=== PATIENT | male | born 1960 | race Caucasian/White ===

== ENCOUNTER 2022-12-19 09:24 | Outpatient (OUT) | payer OTHER, MEDICARE, SELFPAY ==
--- NOTE | 2022-12-19 09:32 | XR_ITS ---
The [address] [address] Patient Name: RG SIMEON MRN: [id number] date: 1960 Sex: M Assigned Patient Location: [facility] Current Patient Location: [facility] Accession/Order Number: [id number] Exam Date: 12/19/2022 09:32 Report Date: 12/19/2022 10:39 At the request of: JENI SAEED Procedure: XR foot RT min 3V PROCEDURE: XR ankle RT min 3V, XR foot RT min 3V COMPARISON: 08/31/2022 HISTORY: RIGHT ANKLE PAIN FINDINGS: BONES:Stable foot fusion with a strut extending from the base of the first metatarsal through the medial cuneiform, navicular into the talus. Subtalar fusion. Screw across the first tarsometatarsal joint extending into the intermediate cuneiform . Widening of the plantar arch. Moderate to severe diffuse degenerative changes SOFT TISSUES:Mild diffuse soft tissue swelling EFFUSION:None visible. OTHER: Negative. IMPRESSION: Stable fusion with no acute fracture or mechanical failure Electronically authenticated by: ABNDAR SAENZ Date: 12/19/2022 10:39
--- NOTE | 2022-12-19 09:42 | XR_ITS ---
The [address] [address] Patient Name: RG SIMEON MRN: [id number] date: 1960 Sex: M Assigned Patient Location: [facility] Current Patient Location: [facility] Accession/Order Number: [id number] Exam Date: 12/19/2022 09:42 Report Date: 12/19/2022 10:39 At the request of: JENI SAEED Procedure: XR ankle RT min 3V PROCEDURE: XR ankle RT min 3V, XR foot RT min 3V COMPARISON: 08/31/2022 HISTORY: RIGHT ANKLE PAIN FINDINGS: BONES:Stable foot fusion with a strut extending from the base of the first metatarsal through the medial cuneiform, navicular into the talus. Subtalar fusion. Screw across the first tarsometatarsal joint extending into the intermediate cuneiform . Widening of the plantar arch. Moderate to severe diffuse degenerative changes SOFT TISSUES:Mild diffuse soft tissue swelling EFFUSION:None visible. OTHER: Negative. IMPRESSION: Stable fusion with no acute fracture or mechanical failure Electronically authenticated by: BANDAR SAENZ Date: 12/19/2022 10:39
== END 2022-12-19 09:25 | disposition home or self-care (01) ==
LOC: RAD 09:24
PROVIDERS: Visit Provider Podiatrist Foot & Ankle Surgery
DX: M19.071 Primary osteoarthritis, right ankle and foot (principal)
CPT/HCPCS: 73610; 73630

== ENCOUNTER 2022-12-27 07:46 | Outpatient (OUT) | payer OTHER, MEDICARE, SELFPAY ==
--- NOTE | 2022-12-27 07:59 | CT_ITS ---
[address] [address] Patient Name: RG SIMEON MRN: [id number] date: 1960 Sex: M Assigned Patient Location: CT Current Patient Location: CT Accession/Order Number: [id number] Exam Date: 12/27/2022 08:06 Report Date: 12/27/2022 09:39 At the request of: JENI SAEED Procedure: CT ankle RT wo con EXAMINATION: CT ankle RT wo con HISTORY: Primary osteoarthritis M19.071, Pseudarthrosis M98.0 ; chronic right ankle pain COMPARISON: XR ankle and foot right 12/19/2022 TECHNIQUE: Multi-planar CT images were created without IV contrast. Dose reduction techniques were achieved by using automated exposure control and/or adjustment of mA and/or kV according to patient size and/or use of iterative reconstruction technique. FINDINGS: BONES: Prior knee replacement. Prior talocalcaneal fusion via 2 lag screws. Prior mechanical fusion of the medial midfoot extending from the first metatarsal to the talus. Small degenerative osteophytes along the articular margins of the tibial plafond, evidence of prior bone harvesting from the distal tibia. Numerous tiny bone fragments along the margins of the midfoot and lateral malleolus; likely sequela of prior surgery. SOFT TISSUES: Mild subcutaneous edema. EFFUSION: None visible. OTHER: Negative. IMPRESSION: 1. Stable surgical changes and mechanical fusion of the hindfoot and medial midfoot. No evidence of hardware failure or appreciable change in alignment. Electronically authenticated by: LAURY ZEPEDA Date: 12/27/2022 09:39
== END 2022-12-27 07:47 | disposition home or self-care (01) ==
PROVIDERS: Visit Provider Podiatrist Foot & Ankle Surgery
DX: M19.071 Primary osteoarthritis, right ankle and foot (principal); M96.0 Pseudarthrosis after fusion or arthrodesis
CPT/HCPCS: 73700

== ENCOUNTER 2023-02-15 08:10 | Outpatient (OUT) | payer MEDICARE, SELFPAY ==
--- NOTE | 2023-02-15 | XR_ITS ---
[address] [address] Patient Name: RG SIMEON MRN: [id number] date: 1960 Sex: M Assigned Patient Location: Current Patient Location: Accession/Order Number: [id number] Exam Date: 02/15/2023 09:00 Report Date: 02/18/2023 12:44 At the request of: JENI SAEED Procedure: XR foot JOMAR min 3V EXAMINATION: XR foot JOMAR min 3V HISTORY: BILATERAL FOOT PAIN COMPARISON: 12/19/2022 FINDINGS: RIGHT FINDINGS: BONES: No acute fracture or dislocation. Fusion of the medial foot with a prosthesis extending from the first metatarsal to the anterior talus. There is lucency surrounding the fusion hardware in the talus. Moderate degenerative changes of the midfoot and hindfoot. Moderate plantar enthesopathic spurring of the calcaneus. Subtalar fusion. SOFT TISSUES: Negative. No visible soft tissue swelling. OTHER: Negative. LEFT FINDINGS: BONES: No acute fracture or dislocation. Fusion of the first and second tarsometatarsal joints with plate and screws. No mechanical failure. Bulky enthesopathic spurring plantar calcaneus SOFT TISSUES: Negative. No visible soft tissue swelling. OTHER: Negative. XR/XR foot JOMAR min 3V IMPRESSION: RIGHT CONCLUSION: Degenerative and postsurgical changes with lucency surrounding the prosthesis in the anterior talus suggestive of loosening, stable LEFT CONCLUSION: Degenerative and postsurgical changes Electronically authenticated by: BANDAR SAENZ Date: 02/18/2023 12:44
== END 2023-02-15 08:11 | disposition home or self-care (01) ==
LOC: RAD 08:11
PROVIDERS: Visit Provider Podiatrist Foot & Ankle Surgery
DX: M79.672 Pain in left foot (principal); M79.671 Pain in right foot; M96.0 Pseudarthrosis after fusion or arthrodesis
CPT/HCPCS: 73630

== ENCOUNTER 2023-03-26 10:34 | Outpatient (OUT) | payer MEDICARE, SELFPAY ==
--- NOTE | 2023-03-26 | XR_ITS ---
The [address] [address] Patient Name: RG SIMEON MRN: [id number] date: 1960 Sex: M Assigned Patient Location: [facility] Current Patient Location: [facility] Accession/Order Number: [id number] Exam Date: 03/26/2023 09:40 Report Date: 03/26/2023 11:36 At the request of: JENI SAEED Procedure: XR foot JOMAR min 3V STUDY: XR foot JOMAR min 3V, [id number] HISTORY: BILATERALL FOOT PAIN COMPARISON: Foot radiographs 02/15/2023 FINDINGS: Right foot: Fusion hardware is intact and similar in alignment. Apparent lucency at the bone hardware interface surrounding the fusion screw traversing the first metatarsal through the talus, similar. Lucency at the bone hardware interface involving the transverse oriented screw at the base of the first metatarsal is slightly increased in conspicuity compared with 02/15/2023. Osseous fragmentation and severe degenerative changes at the talonavicular joint, similar. No new or worsening osseous abnormality demonstrated. Acute fracture, dislocation, or suspicious osseous lesion. Mild osteoarthritis at the calcaneal cuboid joint, fourth tarsometatarsal joint, and the first metatarsophalangeal joint.. Small plantar calcaneal spur and mild Achilles insertional enthesopathy. Left foot: Fusion hardware at the first tarsometatarsal joint is intact and similar alignment compared with 02/15/2023. No evidence of loosening or infection. Mild osteophytosis at the first metatarsophalangeal joint. Medium-sized plantar calcaneal spur and mild Achilles insertional enthesopathy. No acute fracture or dislocation. IMPRESSION: 1. Slight worsening at the bone hardware lucency involving the transverse oriented screw at the base of the right first metatarsal which could indicate loosening or infection. 2. No other potentially new or worsening osseous abnormality in either foot. Electronically authenticated by: MERCEDES ROWE Date: 03/26/2023 11:36
== END 2023-03-26 10:35 | disposition home or self-care (01) ==
LOC: RAD 10:34
PROVIDERS: Visit Provider Podiatrist Foot & Ankle Surgery
DX: M79.671 Pain in right foot (principal); M79.672 Pain in left foot
CPT/HCPCS: 73630

== ENCOUNTER 2023-04-02 09:00 | Outpatient (OUT) | payer MEDICARE, SELFPAY ==
--- NOTE | 2023-04-02 09:29 | US_ITS ---
The [address] [address] Patient Name: RG SIMEON MRN: [id number] date: 1960 Sex: M Assigned Patient Location: US Current Patient Location: US Accession/Order Number: [id number] Exam Date: 04/02/2023 09:34 Report Date: 04/02/2023 10:31 At the request of: ARELY LOGAN Procedure: US right upper quadrant EXAM: US right upper quadrant HISTORY: . Cholesterolosis Of Gallbladder K82.4 . COMPARISON: 01/05/2022 TECHNIQUE: Grayscale and color imaging was performed FINDINGS: The pancreas was obscured due to overlying bowel gas. Scanning of the liver demonstrates a liver to be normal in size. No masses are noted. Color-flow is noted in the portal and hepatic veins. Common bile duct measures 4 mm. Along the wall of the gallbladder there is a 7 mm echogenic focus without shadowing. Findings would be consistent with a gallbladder polyp. No gallbladder wall thickening was noted. Common bile duct is normal measuring 4 mm. Right kidney measures 10.6 x 5.1 x 5.2 cm. Color-flow is noted. No solid renal cortical masses or hydronephrosis is noted. No fluid is noted in the right upper quadrant. US/US right upper quadrant IMPRESSION: 1 7 mm gallbladder polyp. No gallstones. No gallbladder wall thickening. A similar finding was on the previous exam. 2. The pancreas was obscured due to overlying bowel gas. 3. The remainder the right upper quadrant was unremarkable. Electronically authenticated by: BANDAR QUEZADA Date: 04/02/2023 10:31
== END 2023-04-02 09:01 | disposition home or self-care (01) ==
LOC: US 09:03
PROVIDERS: Visit Provider Surgery
DX: K82.4 Cholesterolosis of gallbladder (principal)
CPT/HCPCS: 76705

== ENCOUNTER 2023-04-02 09:16 | Outpatient (OUT) | payer MEDICARE, SELFPAY ==
--- NOTE | 2023-04-02 09:33 | XR_ITS ---
The [address] [address] Patient Name: RG SIMEON MRN: [id number] date: 1960 Sex: M Assigned Patient Location: LAB Current Patient Location: US Accession/Order Number: [id number] Exam Date: 04/02/2023 10:10 Report Date: 04/02/2023 11:03 At the request of: SHUN PEREZ Procedure: XR abdomen 1V EXAM: XR abdomen 1V HISTORY: History Of Kidney Stones Z87.442 COMPARISON: None. TECHNIQUE: AP view of the abdomen. FINDINGS: Nonobstructive bowel gas pattern is noted. There is no suspicious calcification. Posterior lumbar fusion hardwares. XR/XR abdomen 1V IMPRESSION: Nonobstructive bowel gas pattern. No suspicious renal calcification. Electronically authenticated by: ANTWAN ECHEVARRIA Date: 04/02/2023 11:03
[2023-04-02 11:46] LABS: Carbon Dioxide 31.5 mmol/L (21.0-32.0); Chloride 104 mmol/L (98-107); Estimated GFR (African America >60 (>=60); Estimated GFR (Non-African Ame >60 (>=60); Phosphorus 2.5 mg/dL (2.6-4.7); Sodium 142 mmol/L (136-145); Uric Acid 5.2 mg/dL (3.5-7.2)
[2023-04-03 12:09] LABS: PTH, Intact 38 pg/mL (15-65)
== END 2023-04-02 09:17 | disposition home or self-care (01) ==
PROVIDERS: PCP Family Medicine; Visit Provider Urology
DX: N20.0 Calculus of kidney (principal); Z87.442 Personal history of urinary calculi
CPT/HCPCS: 36415; 74018; 82310; 82374; 82435; 82565; 83970; 84100; 84295; 84520; 84550

== ENCOUNTER 2023-05-31 07:50 | Outpatient (OUT) | payer MEDICARE, SELFPAY ==
--- NOTE | 2023-05-31 | XR_ITS ---
The [address] [address] Patient Name: RG SIMEON MRN: [id number] date: 1960 Sex: M Assigned Patient Location: LAB Current Patient Location: LAB Accession/Order Number: [id number] Exam Date: 05/31/2023 08:24 Report Date: 05/31/2023 09:32 At the request of: AUDREY MORRIS Procedure: XR knee LT 3V PROCEDURE: XR knee LT 3V COMPARISON: None. HISTORY: Osteoarthritis FINDINGS: BONES:No acute fracture or dislocation. Moderate tricompartmental osteoarthropathy most significant in the medial compartment. SOFT TISSUES:Negative. No visible soft tissue swelling. EFFUSION:Mild joint effusion. OTHER: Negative. XR/XR knee LT 3V IMPRESSION: Moderate osteoarthritis Electronically authenticated by: BANDAR SAENZ Date: 05/31/2023 09:32
[2023-05-31 08:30] LABS: Estimated Average Glucose 103 mg/dL; Glycohemoglobin A1C 5.2 % (4.5-6.2)
[2023-05-31 08:35] LABS: Basophils Percent Auto 0.8 % (0.2-2.0); Eosinophils Absolute Auto 0.1 10^3/uL (0.0-0.7); Eosinophils Percent Auto 1.9 % (0.9-7.0); Hematocrit 43.2 % (42.0-54.0); Hemoglobin 14.4 g/dL (14.0-18.0); Immature Granulocytes Abs Auto 0.01 10^3/uL (0.00-0.03); Immature Granulocytes Pct Auto 0.2 % (0.0-0.5); Lymphocytes Absolute Auto 1.1 10^3/uL (1.2-3.8); Lymphocytes Percent Auto 21.3 % (20.5-60.0); Mean Corpuscular HGB Conc 33.3 g/dL (29.9-35.2); Mean Corpuscular Hemoglobin 31.6 pg (25.9-34.0); Mean Corpuscular Volume 94.7 fL (80.0-94.0); Mean Platelet Volume 10.4 fL (9.5-13.5); Monocytes Absolute Auto 0.6 10^3/uL (0.3-0.8); Monocytes Percent Auto 11.8 % (1.7-12.0); Neutrophils Absolute Auto 3.3 10^3/uL (1.4-6.5); Platelet Count 219 10^3/uL (150-450); Red Blood Count 4.56 10^6/uL (4.70-6.10); Red Cell Distribution Width 13.1 % (11.0-15.0); White Blood Count 5.2 10^3/uL (4.0-11.0)
[2023-05-31 09:05] LABS: Prostate Specific Antigen Scrn 4.48 ng/mL (<=4.00)
[2023-05-31 09:53] LABS: Alanine Aminotransferase 54 U/L (16-63); Albumin Globulin Ratio 1.1; Albumin Level 3.8 g/dL (3.4-5.0); Alkaline Phosphatase 102 U/L (46-116); Anion Gap 11.7; Aspartate Amino Transferase 41 U/L (15-37); Bilirubin Total 0.6 mg/dL (0.2-1.0); Calcium 8.4 mg/dL (8.5-10.1); Carbon Dioxide 29.3 mmol/L (21.0-32.0); Chloride 104 mmol/L (98-107); Chol HDL Ratio 2.8; Cholesterol 144 mg/dL (<=200); Estimated GFR (African America >60 (>=60); Estimated GFR (Non-African Ame >60 (>=60); Free T3 2.97 pg/mL (2.18-3.98); Globulin 3.6 g/dL; Glucose 113 mg/dL (74-106); HDL Cholesterol 52 mg/dL (40-60); LDL Cholesterol Calculated 77.2 mg/dL; Sodium 141 mmol/L (136-145); Thyroid Stimulating Hormone 1.992 uIU/mL (0.358-3.740); Total Protein 7.4 g/dL (6.4-8.2); Triglycerides 74 mg/dL (<=150); VLDL CHOLESTEROL 14.8 mg/dL
[2023-05-31 20:43] LABS: Occult Blood Negative
[2023-06-01 04:07] LABS: Testosterone 670 ng/dL (264-916)
== END 2023-05-31 07:51 | disposition home or self-care (01) ==
LOC: LAB 07:50
PROVIDERS: PCP Family Medicine; Visit Provider Family Medicine
DX: Z00.00 Encounter for general adult medical examination without abnormal findings (principal); E78.5 Hyperlipidemia, unspecified; R73.09 Other abnormal glucose; Z12.5 Encounter for screening for malignant neoplasm of prostate; Z12.12 Encounter for screening for malignant neoplasm of rectum; M17.9 Osteoarthritis of knee, unspecified
CPT/HCPCS: 36415; 73562; 80053; 80061; 83036; 84403; 84436; 84443; 84481; 85025; G0103; G0328

== ENCOUNTER 2023-06-03 10:18 | Outpatient (OUT) | payer MEDICARE, SELFPAY ==
[2023-06-04 09:11] LABS: PSA, Free 0.61 ng/mL; Prostate Specific Ag 2.9 ng/mL (0.0-4.0)
== END 2023-06-03 10:19 | disposition home or self-care (01) ==
LOC: LAB 10:19
PROVIDERS: PCP Family Medicine; Visit Provider Family Medicine
DX: R97.20 Elevated prostate specific antigen [PSA] (principal)
CPT/HCPCS: 36415; 84153; 84154

== ENCOUNTER 2023-07-03 08:44 | Outpatient (OUT) | payer MEDICARE, SELFPAY ==
--- NOTE | 2023-07-03 | XR_ITS ---
The [address] [address] Patient Name: RG SIMEON MRN: [id number] date: 1960 Sex: M Assigned Patient Location: [facility] Current Patient Location: [facility] Accession/Order Number: [id number] Exam Date: 07/03/2023 08:50 Report Date: 07/03/2023 09:49 At the request of: JENI SAEED Procedure: XR foot RT min 3V EXAM: XR foot RT min 3V HISTORY: RIGHT FOOT PAIN COMPARISON: 12/19/2022 TECHNIQUE: Three views of the right foot. FINDINGS: No acute fracture or dislocation. Postoperative changes are again noted of a tarsometatarsal fusion extending from the first metatarsal through the talus. There is bony spurring, irregularity and resorption across the tarsonavicular articulation. Lucency is noted about the tip of the fusion screw positioned within the talus. Two subtalar fusion screws are also present in good alignment. A plantar calcaneal spur is noted. No soft tissue abnormality. XR/XR foot RT min 3V IMPRESSION: 1. Postoperative changes of a tarsometatarsal and subtalar fusion again noted. 2. Increasing irregularity across the talonavicular fusion site with bony resorption and prominent spurring is noted, as well as some lucency surrounding the main medial column screw (at the talus), which may be due to loosening. Electronically authenticated by: MATTHEW MARSH Date: 07/03/2023 09:49
--- OUTSIDE RECORDS SUMMARY | 2023-07-03 08:50 | XMS_ITS | CCD ---
Author Name Unknown Address [address] [place] [address] [place] [address] Organization [facility] Care Team Providers Care Household Worker Name Role Phone None, No PCP Unavailable Unavailable Unavailable Unavailable Audrey Armstrong Unavailable Audrey Armstrong Unavailable Sal Richardson Unavailable Kenton Lawson Randy Unavailable UnavailAudrey Horan Primary Care Physician MD Audrey Armstrong Primary Care Provider [phone] MD Shun Machado Attending Provider DEBRA, Dr. SAL COLEMAN Attending Unavail able Renny, Mr. Suarez Attending Unavailabl e Audrey Armstrong Primary Care Unavailable Audrey Armstrong Primary Care Unavailable Renny, Mr. Suarez Attending Unavailabl e Audrey Armstrong Primary Care Unavailable Renny, Mr. Suarez Attending Unavailabl e Self, Referral Referring Unavailable HoAudrey nguyen Arely Primary Care Unavailable Dr. SAL RICHARDSON Attending Unavail able Shevcmartin, Mr. Suarez Attending Unavailabl e AnthonyyAudrey Arely Primary Care Unavailable Shevckaylak, Mr. Suarez Referring Unavailabl e Abivchik, Mr. Suarez Referring Unavailabl e Audrey Armstrong Primary Care Unavailable Shevikram, Mr. Suarez Attending Unavailabl e Shevchik, Mr. Suarez Referring Unavailabl e Shevchik, Mr. Suarez Attending Unavailabl e Audrey Armstrong Primary Care Unavailable HoyAudrey Arely Primary Care Unavailable UNKNOWN, UNKNOWN Referring Unavailable DEBRA, Dr. SAL COLEMAN Attending Unavail able Audrey Armstrong Primary Care Unavailable DEBRA, Dr. SAL COLEMAN Attending Unavail able DEBRA, Dr. SAL COLEMAN Referring Unavail able DEBRA, Dr. SAL COLEMAN Admitting Unavail able DEBRA, Dr. SAL COLEMAN Attending Unavail able Audrey Armstrong Primary Care Unavailable HoAudrey nguyen Primary Care Unavailable DEBRA, Dr. SAL COLEMAN Attending Unavail able DEBRA, Dr. SAL COLEMAN Referring Unavail able DEBRA, Dr. SAL COLEMAN Admitting Unavail able DEBRA, Dr. SAL COLEMAN Attending Unavail able Audrey Armsrtong Primary Care Unavailable DEBRA, Dr. SAL COLEMAN Attending Unavail able MD Audrey Armstrong Primary Care Provider [phone] MD Dmitriy De Leon Attending Provider MD Audrey Armstrong Primary Care Provider [phone] MD Dmitriy De Leon Attending Provider [phone] EDISONANDER, PETER D Admitting Unavailable ZIEBER, DR LAURY Costello Consulting Unavailable HOY ., DR VENTURA Primary Care Unavailable HIGHLANDER, PETER D Attending Unavailable HIGHLANDER, PETER D Consulting Unavailable HOY ., DR VENTURA Primary Care Unavailable HIGHLANDER, PETER D Consulting Unavailable HIGHLANDER, PETER D Admitting Unavailable HIGHLANDER, PETER D Attending Unavailable NILL ., DR MCGEE Admitting Unavailable NILL ., DR MCGEE Attending Unavailable ZIEBER, DR LAURY Costello Consulting Unavailable HOY ., DR VENTURA Primary Care Unavailable NILL ., DR MCGEE Consulting Unavailable HOY ., DR VENTURA Primary Care Unavailable HIGHLANDER, PETER D Admitting Unavailable HIGHLANDER, PETER D Attending Unavailable ZIEBER, DR LAURY Costello Consulting Unavailable HIGHLANDER, PETER Trena Consulting Unavailable HOY ., DR VENTURA Admitting Unavailable HOY ., DR VENTURA Primary Care Unavailable HOY ., DR VENTURA Attending Unavailable HOY ., DR VENTURA Consulting Unavailable ZIEBER, DR LAURY Costello Consulting Unavailable HAY ., DR VILLAFANA Admitting Unavailable HAY ., DR VILLAFANA Attending Unavailable HOY ., DR VENTURA Primary Care Unavailable HAY ., DR VILLAFANA Consulting Unavailable HOY ., DR VENTURA Primary Care Unavailable ELIZABETH ., DR ARTHUR Nur Admitting Unavailable ELIZABETH ., DR ARTHUR Nur Attending Unavailable HOY ., DR VENTURA Consulting Unavailable ELIZABETH ., DR ARTHUR Nur Consulting Unavailable WEST, DR BANDAR Sheppard Consulting Unavailable HIGHLANDER, JENI Albrecht Consulting Unavailable CHARLES NUNO Consulting Unavailable ROCIO ., RADHA HANCOCK Consulting Unavailable GEMBUS, LAKIA Consulting Unavailable SEAMBEATRICE, CINDY Tejeda Consulting Unavailable OMAR, WADE Attending Unavailable OMAR, WADE Admitting Unavailable OMAR, WADE Consulting Unavailable HOY ., DR VENTURA Primary Care Unavailable HIGHLANDER, PETER D Admitting Unavailable HIGHLANDER, PETER D Attending Unavailable HIGHLANDER, PETER D Admitting Unavailable HIGHLANDER, PETER D Attending Unavailable HOY ., DR VENTURA Primary Care Unavailable HOY ., DR VENTURA Referring Unavailable COOK, DR SHUN Mirza Admitting Unavailable COOK, DR SHUN Mirza Attending Unavailable HOY ., DR VENTURA Primary Care Unavailable COOK, DR SHUN Mirza Consulting Unavailable WEST, DR BANDAR Sheppard Consulting Unavailable COOK, DR SHUN Mirza Consulting Unavailable COOK, DR SHUN Mirza Admitting Unavailable COOK, DR SHUN Mirza Attending Unavailable HOY ., DR VENTURA Primary Care Unavailable SARASOTA, DR BANDAR Sheppard Consulting Unavailable HOY ., DR VENTURA Admitting Unavailable HOY ., DR VENTURA Attending Unavailable HOY ., DR VENTURA Consulting Unavailable HOY ., DR VENTURA Primary Care Unavailable HOY ., DR VENTURA Primary Care Unavailable HOY ., DR VENTURA Admjameson Unavailable HOY ., DR VENTURA Attending Unavailable HOY ., DR VENTURA Consulting Unavailable BANDAR QUEZADA Consulting Unavailable HOY ., DR VENTURA Attending Unavailable HOY ., DR VENTURA Consulting Unavailable HOY ., DR VENTURA Primary Care Unavailable HOY ., DR VENTURA Admjameson Unavailable LAURY SNYDER Consulting Unavailable HOY ., DR VENTURA Admjameson Unavailable HOY ., DR VENTURA Attending Unavailable HOY ., DR VENTURA Consulting Unavailable HOY ., DR VENTURA Primary Care Unavailable ZIEBER, DR LAURY Costello Consulting Unavailable OMAR, WADE Attending Unavailable ZIEBER, DR LAURY Costello Consulting Unavailable OMAR, WADE Admitting Unavailable HOY ., DR VENTURA Primary Care Unavailable OMAR, WADE Consulting Unavailable HIGHLANDER, JENI D Consulting Unavailable HIGHLANDER, PETER D Admitting Unavailable HIGHLANDER, JENI D Attending Unavailable HOY ., DR VENTURA Primary Care Unavailable WADE NELSON Attending Unavailable DR LAURY ZEPEDA Consulting Unavailable WADE NELSON Admitting Unavailable DR AUDREY BENOIT Primary Care Unavailable WADE NELSON Consulting Unavailable MD Audrey Armstrong Primary Care Provider [phone] MD Hudson De Leon Attending Provider [phone] Audrey Armstrong Primary Care Unavailable Hudson De Leon Attending Unavailable Hudson De Leon Admitting Unavailable Audrey Armstrong Primary Care Unavailable Haley, Hudson Attending Unavailable Haley, Hudson Admitting Unavailable Audrey Armstrong Primary Care Unavailable Hudson De Leon Attending Unavailable Hudson De Leon Admitting Unavailable ANTWAN SORIANO Attending Unavailable AUDREY ARMSTRONG Primary Care Unavailable Shun MACHADO Attending Unavailable Shun MACHADO Attending Unavailable Shun MACHADO Attending Unavailable Arely LOGAN Attending Unavailable Allergies Allergy Classification Reported Allergen(s) Allergy Type Date of Onset Reaction(s) Facility (17 sources) Penicillins; Translations: [Penicillins] Allergy to drug (finding) 7 [facility] Work Phone: (6 sources) Penicillin; Translations: [penicillin] Drug Allergy Eruption of skin (disorder) General Surgery [place] (2 sources) oxyCODONE Drug Allergy 1 [facility] (2 sources) Penicillins Drug allergy (disorder) 7 [facility] (1 source) Penicillins Drug allergy (disorder) 2 [facility] Medications Current Medications Medication Drug Class(es) Dates Sig (Normalized) Sig (Original) acetaminophen 325 mg / oxyCODONE hydrochloride 5 mg oral tablet (2 sources) Opioid Agonist Start: 01-19-2022 take 1 tablet by mouth twice daily Percocet 5 mg-325 mg oral tablet 1 tab(s), Oral, BID, Refill(s) 0 Start Date: 01/19/22 Status: Ordered Celebrex (2 sources) Nonsteroidal Anti-inflammatory Drug Start: 10-16-2022 Celebrex Oral Start Date: 10/16/22 Status: Ordered ciprofloxacin 500 mg oral tablet (12 sources) Quinolone Antimicrobial Start: 02-15-2022 take 1 tablet by mouth every two hours Ciprofloxacin Hcl (Cipro) 500 mg tablet Active 500 MG PO Q12H February 15, 2022 12:00am administer dose at least 2 hrs before/6 hrs after dairy products, calcium, zinc, and/or iron-containing products Start: 02-15-2022 take 1 tablet by lianna th every two hours Ciprofloxacin Hcl (Cipro) 500 mg tablet Active 500 MG PO Q12H February 15, 2022 12:00am administer dose at least 2 hrs before/6 hrs after dairy products, calcium, zinc, and/or iron-containing products Start: 01-19-2022 End: 02-15-2022 take 1 tablet by mouth every two hours Ciprofloxacin Hcl (Cipro) 500 mg tablet Discontinued 500 MG PO Q12H January 19, 2022 12:00am February 15, 2022 7:49am administer dose at least 2 hrs before/6 hrs after dairy products, calcium, zinc, and/or iron-containing products hydroxychloroquine sulfate 200 mg oral tablet (11 sources) Antimalarial, Antirheumatic Agent Start: 04-15-2019 End: 02-15-2022 take 1 tablet by mouth twice daily hydroxychloroquine 200 mg Tab 200 mg = 1 tab(s), Oral, BID Start Date: 04/15/19 Status: Ordered irbesartan 300 mg oral tablet (9 sources) Angiotensin 2 Receptor Jennifer Start: 01-16-2022 take 300 mg by mouth once daily at lunch Irbesartan Active 300 MG PO Daily with lunch January 17, 2022 12:00am NIFEdipine 30 mg oral tablet (11 sources) Dihydropyridine Calcium Channel Jennifer Start: 01-19-2022 take 1 tablet by mouth once daily NIFEdipine 30 mg ER Tab 30 mg = 1 tab(s), Oral, Daily, Refills(s) 0 Start Date: 01/19/22 Status: Ordered Start: 01-17-2022 take 30 mg by mouth once daily in the morning Nifedipine Active 30 MG PO Every morning January 17, 2022 12:00am pantoprazole 40 mg delayed release oral tablet (11 sources) Proton Pump Inhibitor Start: 04-15-2019 take 1 tablet by mouth once daily Protonix 40 mg Tab-DR 40 mg = 1 tab(s), Oral, Daily Start Date: 04/15/19 Status: Ordered potassium citrate 10 meq extended release oral tablet (2 sources) Start: 10-16-2022 End: 10-11-2023 potassium CITRATE 10 mEq ER Tab 20 mEq, 2 tab(s), Oral, BID for 30 day(s), 120 tab(s), Refill(s) 11, [facility] [address], 170, cm, 10/16/22 14:31:00 EDT, Height/Length Dosing, 104.3, kg, 10/16/22 14:31:00 EDT, Weight Dosing Start Date: 10/16/22 Stop Date: 10/11/23 Status: Ordered tiZANidine 4 mg oral tablet (14 sources) Central alpha-2 Adrenergic Agonist Start: 01-19-2022 take 2 tablets by mouth at bedtime tiZANidine 4 mg Tab 8 mg = 2 tab(s), Oral, Bedtime, Refills(s) 0 Start Date: 01/19/22 Status: Ordered Start: 08-03-2021 take 1 tablet by lianna th every six hours as needed for muscle spasms tiZANidine HCl - 4 MG Oral Tablet TAKE 1 TABLET EVERY 6 HOURS NEEDED FOR SPASM. Quantity: 92 Refills: 2 Ordered: 03-Aug-2021 Sal Richardson MD Start : 03-Aug-2021 Active Completed/Discontinued Medications Medication Drug Class(es) Dates Sig (Normalized) Sig (Original) acetaminophen 325 mg / HYDROcodone bitartrate 5 mg oral tablet (6 sources) Opioid Agonist Start: 01-19-2022 End: 02-15-2022 take 1 tablet by mouth every four to six hours Hydrocodone-Acetami nophen Discontinued 1 TAB PO EVERY 4-6 HOURS 10 3 January 19, 2022 February 15, 2022 7:49am chlorhexidine gluconate 40 mg/ml medicated liquid soap (17 sources) Start: 09-19-2021 Hibiclens 4 % External Liquid USE DIRECTED. Quantity: 1 Refills: 0 Ordered: 19-Sep-2021 Jacquie Alves Start : 19-Sep-2021 Active Start: 06-02-2021 Hibiclens 4 % External Liquid USE DIRECTED as preop shower Quantity: 1 Refills: 0 Ordered: 02-Jun-2021 Diane Ayalaa Start : 02-Jun-2021 Active diclofenac sodium 0.01 mg/mg topical gel (2 sources) Nonsteroidal Anti-inflammatory Drug Start: 05-02-2022 Diclofenac Sodium 1 % External Gel APPLY SPARINGLY TO AFFECTED AREA(S) ONCE DAILY Quantity: 1 Refills: 2 Ordered: 02-May-2022 Kenton Lawson PA-C Start : 02-May-2022 Active gabapentin 300 mg oral capsule (15 sources) Anti-epileptic Agent Start: 03-16-2021 take 1 tablet by mouth once Gabapentin 300 MG Oral Capsule Take 1 Tab by mouth daily per titration schedule, scheduled faxed to pharmacy Quantity: 180 Refills: 0 Ordered: 16-Mar-2021 Nazario Holloway MD Start : 16-Mar-2021 Active ketorolac tromethamine 10 mg oral tablet (6 sources) Nonsteroidal Anti-inflammatory Drug, Cyclooxygenase Inhibitor Start: 01-17-2022 End: 02-15-2022 take 1 tablet by mouth three times daily Ketorolac (Toradol) 10 mg Tablet Discontinued 10 MG PO Three times daily January 17, 2022 12:00am February 15, 2022 7:49am lidocaine 0.04 mg/mg medicated patch (9 sources) Antiarrhythmic, Amide Local Anesthetic Start: 08-03-2021 apply 1 dose transdermal route once daily Lidocaine 4 % External Patch APPLY 1 PATCH Daily Quantity: 30 Refills: 4 Ordered: 03-Aug-2021 Sal Richardson MD Start : 03-Aug-2021 Active mupirocin 0.02 mg/mg topical ointment (17 sources) RNA Synthetase Inhibitor Antibacterial Start: 09-19-2021 Mupirocin 2 % External Ointment APPLY SPARINGLY TO AFFECTED AREA(S) TWICE DAILY Quantity: 1 Refills: 0 Ordered: 19-Sep-2021 Jacquie Alves Start : 19-Sep-2021 Active Start: 06-02-2021 Mupirocin 2 % External Ointment Use intranasally twice daily 5 days prior to surgery. Quantity: 1 Refills: 0 Ordered: 02-Jun-2021 Azucena Ayala Start : 02-Jun-2021 Active oxybutynin chloride 5 mg oral tablet (6 sources) Cholinergic Muscarinic Antagonist Start: 01-19-2022 End: 02-15-2022 take 5 mg by mouth twice daily Oxybutynin Chloride Discontinued 5 MG PO Twice daily 60 January 19, 2022 12:00am February 15, 2022 7:49am tadalafil 10 mg oral tablet (2 sources) Phosphodiesterase 5 Inhibitor Start: 10-16-2022 tadalafil 10 mg Tab 10 mg = 1 tab(s), Oral, As Directed, PRN for erectile dysfunction, Take 1 tab by mouth one to two hours prior to sexual activity., # 30 tab(s), Refills(s) 3, Pharmacy: [email or web address] [id number], 170, cm, 10/16/22 14:31:00 EDT, Height/Length Dosing, 104.3, kg, 10/16/22 14:31:00 EDT, Weight Dosing Start Date: 10/16/22 Status: Ordered tamsulosin hydrochloride 0.4 mg oral capsule (6 sources) alpha-Adrenergic Jennifer Start: 01-17-2022 End: 02-15-2022 take 0.4 mg by mouth once daily in the morning Tamsulosin Discontinued 0.4 MG PO Every morning January 17, 2022 12:00am February 15, 2022 7:50am triamcinolone acetonide 1 mg/ml topical cream (2 sources) Corticosteroid Start: 01-19-2022 triamcinolone Top 0.1% Crm 1 amber, Topical, BID, Refill(s) 0 Start Date: 01/19/22 Status: Ordered NEGATED: Highlighted row has not occurred!No Current Medications (1 source) No Current Medications Problems Active Problems Problem Classification Problem Date Documented Da te Episodic/Chronic Abdominal pain (20 sources) Right upper quadrant pain; Translations: [Right upper quadrant pain] Onset: 12-09-2021 Episodic Allergic reactions (6 sources) Eczema; Translations: [Allergy status to penicillin] Onset: 09-27-2021 01-19-2022 Episodic Biliary tract disease (5 sources) Cholesterolosis of gallbladder; Translations: [Cholecystitis, unspecified] Onset: 01-08-2022 Episodic Calculus of urinary tract (20 sources) Kidney stone; Translations: [Calculus of kidney] Onset: 06-02-2021 Resolved: 04-15-2019 04-15-2019 Episodic Complications of surgical procedures or medical care (1 source) Other intraoperative and postprocedural complications and disorders of the musculoskeletal system; Translations: [OTH IO POSTPROC COMP D/O MSK SYS] Onset: 09-03-2022 Episodic Diverticulosis and diverticulitis (10 sources) Diverticular disease; Translations: [Diverticulitis] Resolved: 04-15-2019 04-15-2019 Chronic Esophageal disorders (2 sources) Gastro-esophageal reflux disease without esophagitis; Translations: [Gastro-esophageal reflux disease without esophagitis] Onset: 09-27-2021 Chronic Essential hypertension (7 sources) Hypertensive disorder; Translations: [Essential (primary) hypertension] Onset: 09-27-2021 04-15-2019 Chronic Genitourinary symptoms and ill-defined conditions (2 sources) Abnormal urinary product; Translations: [Hypocitraturia] Onset: 10-16-2022 Episodic Headache; including migraine (5 sources) Migraine 01-19-2022 Chronic Hyperplasia of prostate (8 sources) Benign prostatic hyperplasia; Translations: [Benign prostatic hypertrophy without outflow obstruction] Onset: 01-30-2022 04-15-2019 Chronic Melanomas of skin (10 sources) Malignant melanoma of back; Translations: [Malignant melanoma of skin] Resolved: 05-15-2019 05-16-2019 Chronic Nausea and vomiting (7 sources) Nausea; Translations: [Nausea] Onset: 01-11-2022 Episodic Neoplasms of unspecified nature or uncertain behavior (5 sources) Neoplasm of uncertain behavior of skin 04-15-2019 Episodic Osteoarthritis (10 sources) Osteoarthritis; Translations: [Primary osteoarthritis, right ankle and foot] Onset: 08-16-2022 04-15-2019 Chronic Other acquired deformities (1 source) Contracture, right ankle; Translations: [CONTRACTURE RIGHT ANKLE] Onset: 06-21-2022 Chronic Other acquired deformities (17 sources) Lumbar spondylolisthesis; Translations: [Acquired spondylolisthesis] Onset: 09-19-2021 Episodic Other acquired deformities (2 sources) Spondylolisthesis, lumbar region; Translations: [Spondylolisthesis, lumbar region] Onset: 09-19-2021 Episodic Other circulatory disease (5 sources) Raynaud's disease 01-19-2022 Chronic Other circulatory disease (1 source) Raynaud's syndrome without gangrene; Translations: [Raynaud's syndrome without gangrene] Onset: 06-21-2021 Chronic Other congenital anomalies (1 source) Other congenital valgus deformities of feet; Translations: [OTH CONGEN VALGUS DEFORMITIES FEET] Onset: 02-16-2022 Chronic Other connective tissue disease (1 source) Presence of right artificial knee joint; Translations: [Presence of right artificial knee joint] Onset: 09-27-2021 Chronic Other connective tissue disease (1 source) Presence of unspecified artificial knee joint; Translations: [Presence of unspecified artificial knee joint] Onset: 06-02-2021 Chronic Other connective tissue disease (1 source) Arthrodesis status; Translations: [Arthrodesis status] Onset: 05-02-2022 Episodic Other gastrointestinal disorders (1 source) Abnormal feces; Translations: [Other fecal abnormalities] Onset: 01-24-2022 Episodic Other gastrointestinal disorders (5 sources) Loose stool 01-24-2022 Episodic Other hereditary and degenerative nervous system conditions (5 sources) Essential tremor 01-19-2022 Chronic Other hereditary and degenerative nervous system conditions (1 source) Myelopathy in diseases classified elsewhere; Translations: [Myelopathy in diseases classified elsewhere] Onset: 06-21-2021 Chronic Other inflammatory condition of skin (5 sources) Lupus erythematosus 04-15-2019 Chronic Other male genital disorders (4 sources) Male erectile dysfunction, unspecified; Translations: [Erectile dysfunction] Onset: 10-16-2022 Chronic Other nervous system disorders (1 source) Chronic pain syndrome; Translations: [Chronic pain syndrome] Onset: 09-19-2021 Chronic Other nervous system disorders (5 sources) Tremor 04-15-2019 Episodic Other non-traumatic joint disorders (1 source) Osteophyte, vertebrae; Translations: [Osteophyte, vertebrae] Onset: 06-21-2021 Chronic Other nutritional; endocrine; and metabolic disorders (8 sources) Body mass index 30+ - obesity 01-24-2022 Chronic Other nutritional; endocrine; and metabolic disorders (1 source) Obesity, unspecified; Translations: [Obesity, unspecified] Onset: 09-27-2021 Chronic Other nutritional; endocrine; and metabolic disorders (1 source) Body mass index (BMI) 31.0-31.9, adult; Translations: [Body mass index [BMI] 31.0-31.9, adult] Onset: 09-27-2021 Chronic Other nutritional; endocrine; and metabolic disorders (1 source) Body mass index (BMI) 32.0-32.9, adult; Translations: [Body mass index [BMI] 32.0-32.9, adult] Onset: 09-19-2021 Chronic Other screening for suspected conditions (not mental disorders or infectious disease) (8 sources) Abnormal findings diagnostic imaging of liver+biliary tract; Translations: [Abnormal findings on diagnostic imaging of liver and biliary tract] Onset: 01-24-2022 Episodic Residual codes; unclassified (1 source) Presence of functional implant, unspecified; Translations: [PRESENCE FUNCTIONAL IMPLANT UNS] Onset: 06-21-2022 Chronic Residual codes; unclassified (1 source) Family history of kidney disease; Translations: [Family history of disorders of kidney and ureter] Onset: 01-30-2022 Episodic Residual codes; unclassified (3 sources) Family history of prostate cancer 02-19-2022 Episodic Residual codes; unclassified (2 sources) Family history of cancer; Translations: [Family history of malignant neoplasm of prostate] Onset: 10-16-2022 Episodic Rheumatoid arthritis and related disease (1 source) Inflammatory polyarthropathy; Translations: [Inflammatory polyarthropathy] Onset: 02-19-2023 Chronic Spondylosis; intervertebral disc disorders; other back problems (20 sources) Intervertebral disc disorder of cervical region with myelopathy; Translations: [Intervertebral disc disorder with myelopathy, cervical region] Onset: 06-21-2021 01-19-2022 Chronic Spondylosis; intervertebral disc disorders; other back problems (20 sources) Low back pain; Translations: [Lumbago] Onset: 06-21-2021 09-26-2021 Episodic Systemic lupus erythematosus and connective tissue disorders (1 source) Systemic lupus erythematosus, unspecified; Translations: [Systemic lupus erythematosus, unspecified] Onset: 09-27-2021 Chronic Unclassified (2 sources) XLIF FUSION L3-5 09-13-2021 Comment on above: XLIF FUSION L3-5 Unclassified (1 source) LUMBAR SRG 09/26/21 09-27-2021 Comment on above: LUMBAR SRG 09/26/21 Unclassified (1 source) Lumbar stenosis 09-26-2021 Unclassified (2 sources) Low back pain, unspecified; Translations: [Low back pain, unspecified] Onset: 05-02-2022 Unclassified (1 source) Personal history of COVID-19; Translations: [Personal history of COVID-19] Onset: 09-27-2021 Unclassified (1 source) Contact with and (suspected) exposure to COVID-19; Translations: [Contact with and (suspected) exposure to COVID-19] Onset: 06-21-2021 Unclassified (2 sources) Urine finding 10-16-2022 Unclassified (1 source) CONTACT W/AND (SUSP) EXPOS COVID-19; Translations: [CONTACT W/AND (SUSP) EXPOS COVID-19] Onset: 09-15-2022 Unclassified (3 sources) COUGH, UNSPECIFIED; Translations: [COUGH, UNSPECIFIED] Onset: 09-15-2022 Viral infection (1 source) COVID-19; Translations: [COVID-19] Onset: 06-02-2021 Past or Other Problems Problem Classification Problem Date Documented Date Episodic/Chronic Acquired foot deformities (2 sources) Varus deformity, not elsewhere classified, right ankle; Translations: [Valgus deformity, not elsewhere classified, right ankle] Onset: 06-21-2022 Episodic Melanomas of skin (1 source) Personal history of malignant melanoma of skin; Translations: [Personal history of malignant melanoma of skin] Onset: 09-27-2021 Episodic Other aftercare (2 sources) Other group home (current) drug therapy; Translations: [Other group home (current) drug therapy] Onset: 06-02-2021 Episodic Other connective tissue disease (1 source) Posterior tibial tendinitis, right leg; Translations: [POSTERIOR TIBIAL TENDINITIS RT LEG] Onset: 06-21-2022 Episodic Other connective tissue disease (4 sources) Pain in right foot; Translations: [PAIN IN RIGHT FOOT] Onset: 02-14-2022 Episodic Other connective tissue disease (1 source) Pain in left foot; Translations: [PAIN IN LEFT FOOT] Onset: 02-16-2022 Episodic Other lower respiratory disease (3 sources) Other abnormalities of breathing; Translations: [Other abnormalities of breathing] Onset: 06-02-2021 Episodic Other lower respiratory disease (1 source) Other nonspecific abnormal finding of lung field; Translations: [Other nonspecific abnormal finding of lung field] Onset: 06-02-2021 Episodic Other non-traumatic joint disorders (1 source) Pain in right ankle and joints of right foot; Translations: [PAIN IN RIGHT ANKLE] Onset: 02-16-2022 Episodic Unclassified (1 source) Low back pain, unspecified; Translations: [Low back pain, unspecified] Onset: 05-02-2022 Unclassified (1 source) COUGH, UNSPECIFIED; Translations: [COUGH, UNSPECIFIED] Onset: 09-11-2022 Results Test Name Value Interpretation Reference Range Facility [facility] 04-10-2023 [facility] - From: Elvira Lee LPN To: N - Clinical; Sent: 04/10/2023 09:13:08 EDT Show up: 03/18/2024 07:00:00 EDT Subject: GB US recall Due Date/Time: 04/02/2024 07:00:00 EDT Reminder/Recall Patient due to repeat GB US 04/02/2024 to monitor stability of GB polyp. Normal [facility] RAD - Ultrasound Reporton RAD - Ultrasound Report [id number] F Normal [facility] Ambulatory Visit Summaryon 1 Ambulatory Visit Summary JAY CARR Trena :1960 Visit Date:04/08/2023 Ambulatory Visit Instructions Your Diagnosis Kidney stone BPH (benign prostatic hyperplasia) Hypocitraturia Family history of prostate cancer in father Erectile dysfunction Tests Performed Urnls Dip Stick Auto w/o Microscopy POC 60504 XR Abdomen 1 View -- Results Pending -- Please visit your patient portal for your results or contact your primary care physician. Your Care Team Attending Physician - CHRIS RIVERA, Shun Mirza Primary Care Physician - Audrey Armstrong MD This Is Your Medications List Contact prescribing physician if questions or concerns NIFEdipine (NIFEdipine 30 mg ER Tab) celecoxib (Celebrex) hydroxychloroquine (hydroxychloroquine 200 mg Tab) pantoprazole (Protonix 40 mg Tab-DR) potassium citrate (potassium CITRATE 10 mEq ER Tab) tadalafil (tadalafil 10 mg Tab) tizanidine (tiZANidine 4 mg Tab) Procedures Performed ESWL - Extracorporeal shockwave lithotripsy for renal calculus (01/19/2022), Lithotripsy (01/19/2022), Arthroplasty of knee, Cervical discectomy, Colonoscopy, Excision of melanoma, Fusion of tarsal joints, XLIF - extreme lateral lumbar interbody fusion. Discharge Vitals Heart Rate (Peripheral) 71 Blood Pressure 154/82 Height 170 cm Height 67 in Weight 106.3 kg Weight 233.86 lb BMI 36.78 What to do next Scheduled Follow-Up Appointments Saturday 9:15 AM EDT With: CHRIS RIVERA, Shun Mirza Where: [facility] Patient Educationon 04-08-20 Patient Education Nephrology Dietary Guidelines to Help Prevent Kidney Stones Kidney stones are deposits of minerals and salts that form inside your kidneys. Your risk of developing kidney stones may be greater depending on your diet, your lifestyle, the medicines you take, and whether you have certain medical conditions. Most people can lower their chances of developing kidney stones by following the instructions below. Your dietitian may give you more specific instructions depending on your overall health and the type of kidney stones you tend to develop. What are tips for following this plan? Reading food labels ? Choose foods with no salt added or low-salt labels. Limit your salt (sodium) intake to less than 1,500 mg a day. ? Choose foods with calcium for each meal and snack. Try to eat about 300 mg of calcium at each meal. Foods that contain 200?500 mg of calcium a serving include: ? 8 oz (237 mL) of milk, dommlii-fykydirqylbr-ovv ry milk, and calcium-fortifiedfruit juice. Calcium-fortified means that calcium has been added to these drinks. ? 8 oz (237 mL) of kefir, yogurt, and soy yogurt. ? 4 oz (114 g) of tofu. ? 1 oz (28 g) of cheese. ? 1 cup (150 g) of dried figs. ? 1 cup (91 g) of cooked broccoli. ? One 3 oz (85 g) can of sardines or mackerel. Most people need 1,000?1,500 mg of calcium a day. Talk to your dietitian about how much calcium is recommended for you. Shopping ? Buy plenty of fresh fruits and vegetables. Most people do not need to avoid fruits and vegetables, even if these foods contain nutrients that may contribute to kidney stones. ? When shopping for convenience foods, choose: ? Whole pieces of fruit. ? Pre-made salads with dressing on the side. ? Low-fat fruit and yogurt smoothies. ? Avoid buying frozen meals or prepared deli foods. These can be high in sodium. ? Look for foods with live cultures, such as yogurt and kefir. ? Choose high-fiber grains, such as whole-wheat breads, oat bran, and wheat cereals. Cooking ? Do not add salt to food when cooking. Place a salt shaker on the table and allow each person to add his or her own salt to taste. ? Use vegetable protein, such as beans, textured vegetable protein (TVP), or tofu, instead of meat in pasta, casseroles, and soups. Meal planning ? Eat less salt, if told by your dietitian. To do this: ? Avoid eating processed or pre-made food. ? Avoid eating fast food. ? Eat less animal protein, including cheese, meat, poultry, or fish, if told by your dietitian. To do this: ? Limit the number of times you have meat, poultry, fish, or cheese each week. Eat a diet free of meat at least 2 days a week. ? Eat only one serving each day of meat, poultry, fish, or seafood. ? When you prepare animal protein, cut pieces into small portion sizes. For most meat and fish, one serving is about the size of the palm of your hand. ? Eat at least five servings of fresh fruits and vegetables each day. To do this: ? Keep fruits and vegetables on hand for snacks. ? Eat one piece of fruit or a handful of berries with breakfast. ? Have a salad and fruit at lunch. ? Have two kinds of vegetables at dinner. ? Limit foods that are high in a substance called oxalate. These include: ? Spinach (cooked), rhubarb, beets, sweet potatoes, and Taiwanese chard. ? Peanuts. ? Potato chips, macanese fries, and baked potatoes with skin on. ? Nuts and nut products. ? Chocolate. ? If you regularly take a diuretic medicine, make sure to eat at least 1 or 2 servings of fruits or vegetables that are high in potassium each day. These include: ? Avocado. ? Banana. ? Barron, prune, carrot, or tomato juice. ? Baked potato. ? Cabbage. ? Beans and split peas. Lifestyle ? Drink enough fluid to keep your urine pale yellow. This is the most important thing you can do. Spread your fluid intake throughout the day. ? If you drink alcohol: ? Limit how much you use to: ? 0?1 drink a day for women who are not . ? 0?2 drinks a day for men. ? Be aware of how much alcohol is in your drink. In the [place] one drink equals one 12 oz bottle of beer (355 mL), one 5 oz glass of wine (148 mL), or one 1? oz glass of hard liquor (44 mL). ? Lose weight if told by your health care provider. Work with your dietitian to find an eating plan and weight loss strategies that work best for you. General information ? Talk to your health care provider and dietitian about taking daily supplements. You may be told the following depending on your health and the cause of your kidney stones: ? Not to take supplements with vitamin C. ? To take a calcium supplement. ? To take a daily probiotic supplement. ? To take other supplements such as magnesium, fish oil, or vitamin B6. ? Take vmcw-ovk-ofcvhqj and prescription medicines only as told by your health care provider. These include supplements. What foods should I limit? Limit your in (more content not included)... Normal [facility] Screenson 04-08-2023 Screens [id number] FF Normal [facility] Urology Office/Clinic Noteon 04-08-2023 Urology Office/Clinic Note Chief Complaint 5 month follow up HPI Staff Jay is a 62 y.o. male here for 5 month follow up w/ KUB done 03/28/23-[place]. Previous DX: abdominal pain, ED, family history of prostate cancer, history of kidney stones, hypocitraturia, kidney stone. S/P ESWL done on 01/19/22. *Potassium citrate, tadalafil-pt stopped taking these medication, they both upset his stomach since last visit. Pt increased water fluids and lemon water. Dysuria: denies pain or burning Incomplete bladder emptying: denies Hematuria: denies visible blood Frequency: sometimes in the morning Urgency: denies Nocturia: denies Stream: denies hesitancy, denies weak stream Leaking: denies Post void dripping: denies Wearing pads/ Depends: denies Urge incontinence: denies Stress incontinence: denies Incontinence without Sensory Awareness: denies Abdominal pain: denies Flank pain: yes due to back surgery Sexual complaints: denies History of Present Illness Tests reviewed: reviewed UA, KUB I have reviewed the previous health record information and history for this patient from Dr. Machado. I have reviewed and verified the staff HPI to be accurate for this encounter. Review of Systems PHQ Score Initial Depression Screen Score: 0 ROS - Provider Constitutional: denies weight loss, denies hot flashes. Eyes: denies eye problems. Gastrointestinal: denies nausea, denies vomiting. Cardiovascular: denies chest pain or angina. Integumentary: no dryness Musculoskeletal: denies musculoskeletal symptoms. ENMT: denies otolaryngeal symptoms. Respiratory: no shortness of breath. Heme/Lymph: denies easy bleeding tendency, denies easy bruising tendency. Psychiatric: no confusion, no anxiety. Genitourinary: See HPI. Physical Exam Vitals & Measurements HR: 71(Peripheral) BP: 154/82 HT: 67 in HT: 170 cm WT: 106.3 kg WT: 233.86 lb BMI: 36.78 General Appearance: alert, no distress, well nourished, well developed male. Genitourinary: normal scrotum, normal testes, normal urethra, normal epididymis, normal vas deferens/spermatic cord. Flank Pain: none. Bladder: nonpalpable. Assessment/Plan 1. Kidney stone (N20.0: Calculus of kidney) Hx of lithotripsy 12/2021 and R ESWL 12/2021. Stone analysis 02/15/22 - CaOx mono 90% and CaOx di 10%. Litholink 09/03/22 - Hypomagnesuria. 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 Borderline low urine pH 5.74. Mild uric acid supersaturation 1.03. Urine pH today 5.5. Pt has been treated twice for stones and passed two on his own. Has punctate stone remaining on L per OV note 02/19/22. Electrolyte panel 04/02/23 - wnl. KUB 04/02/23 TBH - no obvious stones. Follow up with KUB in 1 year or sooner if needed. Pt understands and agrees with plan. 2. BPH (benign prostatic hyperplasia) (N40.0: Benign prostatic hyperplasia without lower urinary tract symptoms) IPSS 7. Not currently taking any BPH meds. UA today negative for blood and infection. 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 He can also not tolerate bananas or anything containing potassium and wonders if this is related. Encouraged to drink plenty of lemonade which contains a fair amount of citrate.. 4. Family history of prostate cancer in father (Z80.42: Family history of malignant neoplasm of prostate) PCP checks PSA. 5. Erectile dysfunction (N52.9: Male erectile dysfunction, unspecified) Was taking Tadalafil 10mg PRN. States he has had an upset stomach but is unsure if this is attributed to stress. Advised pt to restart med once his is recovered from her heart issues and surgery and to monitor SE. He can take this with food. Portions of this record may have been created with voice recognition artificial intelligence software, specifically [employer], [employer] and or [employer]. Substitutions may have occurred due to the inherent limitations of voice recognition and artificial intelligence software. Follow-up With When Contact Information CHRIS RIVERA, Shun Mirza, URL [address] [place] [phone]- Additional Instructions: 1 yr w/ KUB Patient Education Dietary Guidelines to Help Prevent Kidney Stones IYolie, personally scribed for Dr. Machado on 04/08/2023 11:15:47. . Documentation recorded by the Yolie correa acurately reflects the services(s) I performed and decisions made by me. Authenticated by Dr. Machado on 04/08/2023 12:04:02. Problem List/Past Medical History Ongoing Abdominal pain, periumbilical Abdominal pain, RUQ Abnormal gallbladder ultrasound BMI 33.0-33.9,adult BPH (benign prostatic hyperplasia) Cervical disc disease Diverticulosis Eczema Erectile dysfunction Essential tremor Family history of prostate cancer in father History of kidney stones Hypertension Hypocitraturia Kidney (more content not included)... [facility] Comment on above: Result Comment: Elec tronically Signed By: Shun MACHADO MD\.br\Date and Time Signed: 04/08/23 12:06 EDT\.br\Electronically Co-Signed By: Yolie Aly\.br\Date and Time Co-Signed: 04/08/23 11:16 EDT Lab Reportson 04-05-2023 Lab Reports [id number] F [facility] Lab Reportson 04-03-2023 Lab Reports [id number] F [facility] RAD - MISCon 04-03-2023 RAD - MISC [id number] FF [facility] Reminderson 03-27-2023 Reminders - From: Elvira Lee LPN To: GSN - Clinical; Sent: 10/02/2022 14:02:21 EDT Show up: 2023 07:00:00 EDT Subject: repeat GB US Due Date/Time: 04/03/2023 07:00:00 EDT Reminder/Recall Patient is due to repeat gall bladder US 03/2023. Scheduled 04/02 at [facility]. [facility] CNOVon 03-12-2023 CNOV Office Visit (ORFTMN ) -------- JAY CARR ([id number]) 1960 M Date Time Provider Department 03/12/23 1:10 PM ANTWAN SORIANO During your visit today, we recorded the following information about you: Antwan Soriano MD 03/12/2023 2:46 PM Signed March 12, 2023 HPI: Jay Carr is a 62 yo male with history of bilateral foot reconstruction surgeries on left JUN 2019 then MAY 2020. On right September 2020 then MAY 2022. Current issue is the right. Has Raynauds and SLE. Pain Descriptors: Duration: chronic Severity: moderate Quality: ache Location: foot, ankle Context: worse with activity and dependent position Modifying Factors: improved with rest and elevation Supporting Subjective Information Below: There is no height or weight on file to calculate BMI. Past Medical History PAST MEDICAL HISTORY Diagnosis Date Arthritis Kidney stones Lupus (HCC) Surgical History: PAST SURGICAL HISTORY Procedure Laterality Date KNEE SURGERY HX RECONSTRUCT ANKLE JOINT Left Family History: FAMILY HISTORY Problem Relation Age of Onset Cancer Father lung Macular Degen Mother Hypertension Mother Hypertension Brother Diabetes No Family History Medications: Current Outpatient Medications Medication Sig irbesartan (AVAPRO) 300 mg tablet Take 300 mg by mouth daily at bedtime. hydroxychloroquine (PLAQUENIL) 200 mg tablet Take 200 mg by mouth twice daily. celecoxib (CELEBREX) 200 mg capsule Take 200 mg by mouth twice daily. losartan (COZAAR) 25 mg tablet Take 25 mg by mouth once daily. NIFEdipine ER (PROCARDIA XL) 30 mg 24 hr tablet Take 30 mg by mouth once daily. pantoprazole DR (PROTONIX) 40 mg tablet Take 40 mg by mouth once daily. ascorbic acid (VITAMIN C ORAL) Take by mouth. ZINC ACETATE ORAL Take by mouth. HYDROcodone-acetaminophe n (NORCO) 5-325 mg per tablet TAKE 1 TABLET BY MOUTH EVERY 4 HOURS NEEDED FOR PAIN (max 6 (SIX) TABLETS in 24 HOURS) (Patient not taking: Reported on 03/12/2023) docosahexaenoic acid/epa (FISH OIL ORAL) Take by mouth. (Patient not taking: Reported on 03/12/2023) No current facility-administered medications for this visit. Allergies: Penicillins Review Of Systems GENERAL:Negative for malaise, significant weight loss and fever HEENT:Negative for frequent or significant headaches, significant changes in vision or vision problems, significant ear problems or hearing loss, nasal discharge or nose bleeds and sore throat, difficulty swallowing, mouth lesions NECK:Negative for lumps, goiter, pain and significant neck swelling RESPIRATORY: Negative for cough, wheezing and shortness of breath CARDIOVASCULAR: Negative for chest pain, leg swelling and palpitations GASTROINTESTINAL: Negative for abdominal discomfort, blood in stools or black stools and change in bowel habits GENITOURINARY: Negative for dysuria, frequency and incontinence MUSCULOSKELETAL: Negative for joint pain or swelling, back pain, and muscle pain. NEUROLOGIC:Negative for focal numbness or weakness, headaches and dizziness. SKIN:Negative for lesions, rash, and itching. PSYCHIATRIC: Negative for sleep disturbance, mood disorder and recent psychosocial stressors. HEMATOLOGIC/LYMPHATIC/IM MUNOLOGIC:Negative for prolonged bleeding, bruising easily, and swollen nodes. ENDOCRINE: Negative for cold or heat intolerance, polyuria, polydipsia and goiter. Physical Exam: Basic physical examination reveals the patient to be in no acute distress. The patient is alert and oriented x 3 Mood and affect are appropriate. Head is atraumatic, normocephalic. Neck ROM grossly intact. Mucous membranes are moist. Eyes, ears, and nose are normal in appearance. Hearing is grossly intact. Breathing is unlabored with grossly normal chest motion. Limited Upper Extremity Exam: Shoulders with grossly intact ROM and strength, no obvious deformity. Elbows with grossly intact ROM and strength, no obvious deformity. Hand and wrist with grossly intact ROM and strength, no obvious deformity. Focused orthopaedic examination reveals the following: Skin intact without lesions. 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 Normal [facility] Alanine aminotransferase [En zymatic activity/volume] in Serum or PlasmaOrdered By: Hudson De Leon on 02-19-2023 ALT [Catalytic activity/Vol] 24 U/L 7-52 [facility] Albumin [Mass/volume] in Ser um or Plasma by Bromocresol green (BCG) dye binding methoOrdered By: Hudson De Leon on 02-19-2023 Albumin BCG dye [Mass/Vol] 4.1 g/dL 3.5-5.7 [facility] Alkaline phosphatase [Enzyma tic activity/volume] in Serum or PlasmaOrdered By: Hudson De Leon on 02-19-2023 ALP [Catalytic activity/Vol] 90 U/L 34-104 [facility] Aspartate aminotransferase [ Enzymatic activity/volume] in Serum or PlasmaOrdered By: Hudson De Leon on 02-19-2023 AST [Catalytic activity/Vol] 27 U/L 13-39 [facility] Automated erythrocytes count in urine sediment (number/area)Ordered By: Hudson De Leon on 02-19-2023 RBC Auto (Urine sed) [#/Area] 0-1 [HPF] 0-4 [facility] Automated leukocytes count i n urine sediment (number/area)Ordered By: Hudson De Leon on 02-19-2023 WBC Auto (Urine sed) [#/Area] None seen [HPF] 0-4 [facility] Basophils Auto (Bld) [#/Vol] Ordered By: Hudson De Leon on 02-19-2023 Basophils (Bld) [#/Vol] 0.0 10*3/uL 0.0-0.2 [facility] Basophils/100 WBC Auto (Bld) Ordered By: Hudson De Leon on 02-19-2023 Basophils/100 WBC (Bld) 0.7 % . [facility] Bilirubin Test strip Ql (U)O rdered By: Hudson De Leon on 02-19-2023 Bilirubin Ql (U) Negative Negative [facility] Bilirubin.total [Mass/volume ] in Serum or PlasmaOrdered By: Hudson De Leon on 02-19-2023 Bilirubin [Mass/Vol] 0.6 mg/dL 0.3-1.0 [facility] Calcium [Mass/volume] in Ser um or PlasmaOrdered By: Hudson De Leon on 02-19-2023 Calcium [Mass/Vol] 9.0 mg/dL 8.6-10.3 [facility] Carbon dioxide, total [Moles /volume] in Serum or PlasmaOrdered By: Hudson De Leon on 02-19-2023 CO2 [Moles/Vol] 29.6 mmol/L 21.0-31.0 [facility] Chloride [Moles/volume] in S lenny or PlasmaOrdered By: Hudson De Leon on 02-19-2023 Chloride [Moles/Vol] 105 mmol/L 98-107 [facility] Color Auto (U)Ordered By: Maykel De Leon on 02-19-2023 Color (U) Yellow Yellow [facility] Complement C3on 02-19-2023 Complement C3 121 mg/dL Normal 82-167 [facility] Comment on above: Result Comment: Perf ormed at: CB - [facility] [place] [id number] Database Architect: Derek Toscano PhD, Phone: [phone] Performed By: #### C BC, ESR, ADDONUAPLUS, CMP #### [facility] [address] [place] [address] #### C4, C3, CH50 #### [facility] , Complement C4on 02-19-2023 Complement C4 23 mg/dL Normal 12-38 [facility] Comment on above: Result Comment: PERF ORMED BY: [place] [address] PATHOLOGIST THERAPY TEACHER KRISTIE BAKER M.D. Performed By: #### C BC, ESR, ADDONUAPLUS, CMP #### [address] #### C4, C3, CH50 #### [facility] , Complement Total (CH50)on Complement Total (CH50) 48 Normal >41 [facility] Comment on above: Result Comment: Age Male Female 1 - 30 days Not Estab. Not Estab. 31 days - 6 months >32 >20 7 months - 17 years >39 >39 >17 years >41 >41 NOTE: The adult ( >17 years ) reference interval range is used to flag abnormals on this report. If the patient is 17 years old or younger, use the table above to determine out of range values. Performed at: - [facility] [id number] Database Architect: Derek Toscano PhD, Phone: [phone] PERFORMED BY: [place] [address] PATHOLOGIST THERAPY TEACHER KRISTIE BAKER M.D. Performed By: #### C BC, ESR, ADDONUAPLUS, CMP #### [address] #### C4, C3, CH50 #### [facility] , Complete Blood Count Auto Di ffon 02-19-2023 Basophils (Bld) [#/Vol] 0.0 10*3/uL Normal 0.0-0.2 [facility] Comment on above: Performed By: #### C BC, ESR, ADDONUAPLUS, CMP #### [address] #### C4, C3, CH50 #### [facility] , Basophils/100 WBC (Bld) 0.7 % Normal . [facility] Comment on above: Performed By: #### C BC, ESR, ADDONUAPLUS, CMP #### [place] [address] [place] #### C4, C3, CH50 #### [facility] , Eosinophils (Bld) [#/Vol] 0.0 10*3/uL Normal 0.0-0.45 [facility] Comment on above: Performed By: #### C BC, ESR, ADDONUAPLUS, CMP #### [place] [address] [place] #### C4, C3, CH50 #### [facility] , Eosinophils/100 WBC (Bld) 1.0 % Normal . [facility] Comment on above: Performed By: #### C BC, ESR, ADDONUAPLUS, CMP #### [place] [address] [place] #### C4, C3, CH50 #### [facility] , Erythrocyte distribution width (RBC) [Ratio] 13.6 % Normal 12.0-14.8 [facility] Comment on above: Performed By: #### C BC, ESR, ADDONUAPLUS, CMP #### [address] #### C4, C3, CH50 #### [facility] , Hematocrit (Bld) [Volume fraction] 42.3 % Normal 38.8-50.0 [facility] Comment on above: Performed By: #### C BC, ESR, ADDONUAPLUS, CMP #### [place] [address] [place] #### C4, C3, CH50 #### [facility] , Hemoglobin (Bld) [Mass/Vol] 14.3 g/dL Normal 13.0-17.0 [facility] Comment on above: Performed By: #### C BC, ESR, ADDONUAPLUS, CMP #### [place] [address] [place] #### C4, C3, CH50 #### [facility] , Lymphocytes (Bld) [#/Vol] 0.9 10*3/uL Low 1.00-4.8 [facility] Comment on above: Performed By: #### C BC, ESR, ADDONUAPLUS, CMP #### [place] [address] [place] #### C4, C3, CH50 #### [facility] , Lymphocytes/100 WBC (Bld) 18.5 % Normal . [facility] Comment on above: Performed By: #### C BC, ESR, ADDONUAPLUS, CMP #### [facility] [address] [place] [address] [place] #### C4, C3, CH50 #### [facility] , MCH (RBC) [Entitic mass] 31.5 pg Normal 27.5-35.2 [facility] Comment on above: Performed By: #### C BC, ESR, ADDONUAPLUS, CMP #### [place] [address] [place] #### C4, C3, CH50 #### [facility] , MCV (RBC) [Entitic vol] 93.0 fL Normal 83.5-101 [facility] Comment on above: Performed By: #### C BC, ESR, ADDONUAPLUS, CMP #### [place] [address] [place] #### C4, C3, CH50 #### [facility] , Mean Corpuscular HGB Conc 33.9 g/dL Normal 32.5-35.6 [facility] Comment on above: Performed By: #### C BC, ESR, ADDONUAPLUS, CMP #### [place] [address] [place] #### C4, C3, CH50 #### [facility] , Monocytes (Bld) [#/Vol] 0.4 10*3/uL Normal 0.0-0.8 [facility] Comment on above: Performed By: #### C BC, ESR, ADDONUAPLUS, CMP #### [place] [address] [place] #### C4, C3, CH50 #### [facility] , Monocytes/100 WBC (Bld) 8.1 % Normal . [facility] Comment on above: Performed By: #### C BC, ESR, ADDONUAPLUS, CMP #### [address] #### C4, C3, CH50 #### [facility] , Neutrophils (Bld) [#/Vol] 3.4 10*3/uL Normal 1.8-7.7 [facility] Comment on above: Performed By: #### C BC, ESR, ADDONUAPLUS, CMP #### [facility] [address] [place] [address] [place] #### C4, C3, CH50 #### [facility] , Neutrophils/100 WBC (Bld) 71.7 % Normal . [facility] Comment on above: Performed By: #### C BC, ESR, ADDONUAPLUS, CMP #### [address] #### C4, C3, CH50 #### [facility] , NRBC% 0.1 /100{WBC} Normal 0-0.5 [facility] Comment on above: Performed By: #### C BC, ESR, ADDONUAPLUS, CMP #### [facility] [address] [place] [address] [place] #### C4, C3, CH50 #### [facility] , Platelet mean volume (Bld) [Entitic vol] 9.0 fL Normal 6.6-10.1 [facility] Comment on above: Performed By: #### C BC, ESR, ADDONUAPLUS, CMP #### [place] [address] [place] #### C4, C3, CH50 #### [facility] , Platelets (Bld) [#/Vol] 198 10*3/uL Normal 150-450 [facility] Comment on above: Performed By: #### C BC, ESR, ADDONUAPLUS, CMP #### [place] [address] [place] #### C4, C3, CH50 #### [facility] , RBC (Bld) [#/Vol] 4.55 10*6/uL Normal 3.90-5.60 [facility] Comment on above: Performed By: #### C BC, ESR, ADDONUAPLUS, CMP #### [place] [address] [place] #### C4, C3, CH50 #### [facility] , WBC (Bld) [#/Vol] 4.7 10*3/uL Normal 4.1-10.5 [facility] Comment on above: Performed By: #### C BC, ESR, ADDONUAPLUS, CMP #### [address] #### C4, C3, CH50 #### [facility] , Comprehensive Metabolic Pane tanika 02-19-2023 Albumin [Mass/Vol] 4.1 g/dL Normal 3.5-5.7 [facility] Comment on above: Performed By: #### C BC, ESR, ADDONUAPLUS, CMP #### [address] #### C4, C3, CH50 #### [facility] , Albumin/Globulin [Mass ratio] 1.6 {ratio} Normal [facility] Comment on above: Performed By: #### C BC, ESR, ADDONUAPLUS, CMP #### [address] #### C4, C3, CH50 #### [facility] , ALP [Catalytic activity/Vol] 90 U/L Normal 34-104 [facility] Comment on above: Result Comment: PERF ORMED BY: [place] [address] PATHOLOGIST THERAPY TEACHER KRISTIE BAKER M.D. Performed By: #### C BC, ESR, ADDONUAPLUS, CMP #### [address] [place] [address] [place] #### C4, C3, CH50 #### [facility] , ALT [Catalytic activity/Vol] 24 U/L Normal 7-52 [facility] Comment on above: Performed By: #### C BC, ESR, ADDONUAPLUS, CMP #### [facility] [address] [place] [address] [place] #### C4, C3, CH50 #### [facility] , Anion gap [Moles/Vol] 9.4 mmol/L Normal 6.0-15.[address] [facility] Comment on above: Performed By: #### C BC, ESR, ADDONUAPLUS, CMP #### [facility] [address] [place] [address] #### C4, C3, CH50 #### [facility] , AST [Catalytic activity/Vol] 27 U/L Normal 13-39 [facility] Comment on above: Performed By: #### C BC, ESR, ADDONUAPLUS, CMP #### [facility] [address] [place] [address] [place] #### C4, C3, CH50 #### [facility] , Bilirubin [Mass/Vol] 0.6 mg/dL Normal 0.3-1.0 [facility] Comment on above: Performed By: #### C BC, ESR, ADDONUAPLUS, CMP #### [facility] [address] [place] [address] [place] #### C4, C3, CH50 #### [facility] , Calcium [Mass/Vol] 9.0 mg/dL Normal 8.6-10.3 [facility] Comment on above: Performed By: #### C BC, ESR, ADDONUAPLUS, CMP #### [facility] [address] [place] [address] [place] #### C4, C3, CH50 #### [facility] , Chloride [Moles/Vol] 105 mmol/L Normal 98-107 [facility] Comment on above: Performed By: #### C BC, ESR, ADDONUAPLUS, CMP #### [facility] [address] [place] [address] [place] #### C4, C3, CH50 #### [facility] , CO2 [Moles/Vol] 29.6 mmol/L Normal 21.0-31.0 [facility] Comment on above: Performed By: #### C BC, ESR, ADDONUAPLUS, CMP #### [place] [address] [place] #### C4, C3, CH50 #### [facility] , Creatinine [Mass/Vol] 0.95 mg/dL Normal 0.70-1.[address] [facility] Comment on above: Performed By: #### C BC, ESR, ADDONUAPLUS, CMP #### [place] [address] [place] #### C4, C3, CH50 #### [facility] , GFR/1.73 sq M.predicted MDRD (S/P/Bld) [Vol rate/Area] mL/min/{1.73_m2} [facility] Comment on above: Performed By: #### C BC, ESR, ADDONUAPLUS, CMP #### [place] [address] [place] #### C4, C3, CH50 #### [facility] , Globulin (S) [Mass/Vol] 2.6 g/dL [facility] Comment on above: Performed By: #### C BC, ESR, ADDONUAPLUS, CMP #### [facility] [address] [place] [address] [place] #### C4, C3, CH50 #### [facility] , Glucose [Mass/Vol] 108 mg/dL High 70-100 [facility] Comment on above: Result Comment: Trail Glucose Reference Range is dependent on time and content of last meal. Glucose of more than 200 mg/dL in a nonstressed, ambulatory subject supports the diagnosis of Diabetes Mellitus. ADA recommended reference range Performed By: #### C BC, ESR, ADDONUAPLUS, CMP #### [place] [address] [place] #### C4, C3, CH50 #### [facility] , Potassium [Moles/Vol] 4.0 mmol/L Normal 3.5-5.[address] [facility] Comment on above: Performed By: #### C BC, ESR, ADDONUAPLUS, CMP #### [place] [address] [place] #### C4, C3, CH50 #### [facility] , Protein [Mass/Vol] 6.7 g/dL Normal 6.4-8.9 [facility] Comment on above: Performed By: #### C BC, ESR, ADDONUAPLUS, CMP #### [place] [address] [place] #### C4, C3, CH50 #### [facility] , Sodium [Moles/Vol] 140 mmol/L Normal 136-145 [facility] Comment on above: Performed By: #### C BC, ESR, ADDONUAPLUS, CMP #### [place] [address] [place] #### C4, C3, CH50 #### [facility] , Urea nitrogen [Mass/Vol] 16 mg/dL Normal 7-25 [facility] Comment on above: Performed By: #### C BC, ESR, ADDONUAPLUS, CMP #### [place] [address] [place] #### C4, C3, CH50 #### [facility] , Creatinine [Mass/volume] in Serum or PlasmaOrdered By: Hudson De Leon on 02-19-2023 Creatinine [Mass/Vol] 0.95 mg/dL 0.70-1.[address] [facility] Dipstick and Microscopicon 0 02-19-2023 Appearance (U) Clear Normal Clear [facility] Comment on above: Order Comment: Name Collection Type:: Clean-Voided Midstream Performed By: #### C BC, ESR, ADDONUAPLUS, CMP #### [facility] [address] [place] [address] #### C4, C3, CH50 #### [facility] , Bacteria,Urine None Seen Normal None Seen [facility] Comment on above: Order Comment: Name Collection Type:: Clean-Voided Midstream Performed By: #### C BC, ESR, ADDONUAPLUS, CMP #### [address] #### C4, C3, CH50 #### [facility] , Bilirubin,Urine Negative Normal Negative [facility] Comment on above: Order Comment: Name Collection Type:: Clean-Voided Midstream Performed By: #### C BC, ESR, ADDONUAPLUS, CMP #### [facility] [address] [place] [address] #### C4, C3, CH50 #### [facility] , Color (U) Yellow Normal Yellow [facility] Comment on above: Order Comment: Name Collection Type:: Clean-Voided Midstream Performed By: #### C BC, ESR, ADDONUAPLUS, CMP #### [facility] [address] [place] [address] [place] #### C4, C3, CH50 #### [facility] , Glucose Ql (U) Normal Normal Normal [facility] Comment on above: Order Comment: Name Collection Type:: Clean-Voided Midstream Performed By: #### C BC, ESR, ADDONUAPLUS, CMP #### [place] [address] [place] #### C4, C3, CH50 #### [facility] , Hyaline Casts,Urine None Seen Normal 0-8 [facility] Comment on above: Order Comment: Name Collection Type:: Clean-Voided Midstream Result Comment: PERF ORMED BY: [place] [address] PATHOLOGIST THERAPY TEACHER KRISTIE BAKER M.D. Performed By: #### C BC, ESR, ADDONUAPLUS, CMP #### [address] #### C4, C3, CH50 #### [facility] , Ketones Ql (U) Negative Normal Negative [facility] Comment on above: Order Comment: Name Collection Type:: Clean-Voided Midstream Performed By: #### C BC, ESR, ADDONUAPLUS, CMP #### [address] #### C4, C3, CH50 #### [facility] , Leukocyte esterase Test strip Ql (U) Negative Normal Negative [facility] Comment on above: Order Comment: Name Collection Type:: Clean-Voided Midstream Performed By: #### C BC, ESR, ADDONUAPLUS, CMP #### [facility] [address] [place] [address] #### C4, C3, CH50 #### [facility] , Nitrite,Urine Negative Normal Negative [facility] Comment on above: Order Comment: Name Collection Type:: Clean-Voided Midstream Performed By: #### C BC, ESR, ADDONUAPLUS, CMP #### [address] #### C4, C3, CH50 #### [facility] , Occult Blood,Urine Negative Normal Negative [facility] Comment on above: Order Comment: Name Collection Type:: Clean-Voided Midstream Performed By: #### C BC, ESR, ADDONUAPLUS, CMP #### [place] [address] [place] #### C4, C3, CH50 #### [facility] , pH (U) 5.5 [pH] Normal 5.0-9.0 [facility] Comment on above: Order Comment: Name Collection Type:: Clean-Voided Midstream Performed By: #### C BC, ESR, ADDONUAPLUS, CMP #### [address] #### C4, C3, CH50 #### [facility] , Protein,Urine Negative Normal Negative [facility] Comment on above: Order Comment: Name Collection Type:: Clean-Voided Midstream Performed By: #### C BC, ESR, ADDONUAPLUS, CMP #### [address] #### C4, C3, CH50 #### [facility] , RBC LM.HPF (Urine sed) [#/Area] 0 /[HPF] Normal 0-4 [facility] Comment on above: Order Comment: Name Collection Type:: Clean-Voided Midstream Performed By: #### C BC, ESR, ADDONUAPLUS, CMP #### [address] #### C4, C3, CH50 #### [facility] , Specificy [place],Urine 1.018 Normal 1.001-1.03 0 [facility] Comment on above: Order Comment: Name Collection Type:: Clean-Voided Midstream Performed By: #### C BC, ESR, ADDONUAPLUS, CMP #### [address] #### C4, C3, CH50 #### [facility] , Squamous Epithelial Cell,Urine None Seen Normal 0-2 [facility] Comment on above: Order Comment: Name Collection Type:: Clean-Voided Midstream Performed By: #### C BC, ESR, ADDONUAPLUS, CMP #### [address] #### C4, C3, CH50 #### [facility] , Urobilinogen,Urine Normal Normal Normal [facility] Comment on above: Order Comment: Name Collection Type:: Clean-Voided Midstream Performed By: #### C BC, ESR, ADDONUAPLUS, CMP #### [facility] [address] [place] [address] #### C4, C3, CH50 #### [facility] , WBC,Urine None Seen Normal 0-4 [facility] Comment on above: Order Comment: Name Collection Type:: Clean-Voided Midstream Performed By: #### C BC, ESR, ADDONUAPLUS, CMP #### [address] #### C4, C3, CH50 #### [facility] , Eosinophils Auto (Bld) [#/Vo l]Ordered By: Hudson De Leon on 02-19-2023 Eosinophils (Bld) [#/Vol] 0.0 10*3/uL 0.0-0.45 [facility] Eosinophils/100 WBC Auto (Bl d)Ordered By: Hudson De Leon on 02-19-2023 Eosinophils/100 WBC (Bld) 1.0 % . [facility] Erythrocyte Sedimentation Ra natan 02-19-2023 ESR (Bld) [Velocity] 7 mm/h Normal 0-19 [facility] Comment on above: Result Comment: PERF ORMED BY: [place] [address] PATHOLOGIST THERAPY TEACHER KRISTIE BAKER M.D. Performed By: #### C BC, ESR, ADDONUAPLUS, CMP #### [address] #### C4, C3, CH50 #### [facility] , Erythrocyte distribution wid th Auto (RBC) [Ratio]Ordered By: Hudson De Leon on 02-19-2023 Erythrocyte distribution width (RBC) [Ratio] 13.6 % 12.0-14.8 [facility] Erythrocyte sedimentation ra te by Photometric methodOrdered By: Hudson De Leon on 02-19-2023 ESR Photometric method (Bld) [Velocity] 7 mm/hr 0-19 [facility] Globulin Calc (S) [Mass/Vol] Ordered By: Hudson De Leon on 02-19-2023 Globulin (S) [Mass/Vol] 2.6 g/dL [facility] Glucose [Mass/volume] in Ser um or PlasmaOrdered By: Hudson De Leon on 02-19-2023 Glucose [Mass/Vol] 108 mg/dL 70-100 [facility] Comment on above: ADA recommended refe rence rangeRandom Glucose Reference Range is dependent on time and content of last meal. Glucose of more than 200 mg/dL in a nonstressed, ambulatory subject supports the diagnosis of Diabetes Mellitus. Hematocrit Auto (Bld) [Volum e fraction]Ordered By: Hudson De Leon on 02-19-2023 Hematocrit (Bld) [Volume fraction] 42.3 % 38.8-50.0 [facility] Hemoglobin [Mass/volume] in BloodOrdered By: Hudson De Leon on 02-19-2023 Hemoglobin (Bld) [Mass/Vol] 14.3 g/dL 13.0-17.0 [facility] Ketones Auto test strip (U) [Mass/Vol]Ordered By: Hudson De Leon on 02-19-2023 Ketones (U) [Mass/Vol] Negative Negative [facility] - UrinalysisOrder ed By: Hudson De Leon on 02-19-2023 Hyaline casts LM Ql (Urine sed) None seen [LPF] 0-8 [facility] Leukocytes [#/volume] correc leah for nucleated erythrocytes in Blood by Automated counOrdered By: Hudson De Leon on 02-19-2023 WBC corrected for nucl RBC Auto (Bld) [#/Vol] 4.7 10*3/uL 4.1-10.5 [facility] Lymphocytes Auto (Bld) [#/Vo l]Ordered By: Hudson De Leon on 02-19-2023 Lymphocytes (Bld) [#/Vol] 0.9 10*3/uL 1.00-4.8 [facility] Lymphocytes/100 WBC Auto (Bl d)Ordered By: Hudson De Leon on 02-19-2023 Lymphocytes/100 WBC (Bld) 18.5 % . [facility] MCH Auto (RBC) [Entitic mass ]Ordered By: Hudson De Leon on 02-19-2023 MCH (RBC) [Entitic mass] 31.5 pg 27.5-35.2 [facility] MCHC Auto (RBC) [Mass/Vol]Or dered By: Hudson De Leon on 02-19-2023 MCHC (RBC) [Mass/Vol] 33.9 g/dL 32.5-35.[address] [facility] MCV Auto (RBC) [Entitic vol] Ordered By: Hudson De Leon on 02-19-2023 MCV (RBC) [Entitic vol] 93.0 fL 83.5-101 [facility] Monocytes Auto (Bld) [#/Vol] Ordered By: Hudson De Leon on 02-19-2023 Monocytes (Bld) [#/Vol] 0.4 10*3/uL 0.0-0.8 [facility] Monocytes/100 WBC Auto (Bld) Ordered By: Hudson De Leon on 02-19-2023 Monocytes/100 WBC (Bld) 8.1 % . [facility] Neutrophils Auto (Bld) [#/Vo l]Ordered By: Hudson De Leon on 02-19-2023 Neutrophils (Bld) [#/Vol] 3.4 10*3/uL 1.8-7.7 [facility] Neutrophils/100 WBC Auto (Bl d)Ordered By: Hudson De Leon on 02-19-2023 Neutrophils/100 WBC (Bld) 71.7 % . [facility] Nitrite Test strip Ql (U)Ord ered By: Hudson De Leon on 02-19-2023 Nitrite Ql (U) Negative Negative [facility] No Panel InformationOrdered By: Hudson De Leon on 02-19-2023 Estimated GFR (CKD-EPI) > 60.0 mL/Min [facility] Creatinine Clearance (Chem N/A [facility] Nucleated erythrocytes [Pres ence] in Blood by Automated countOrdered By: Hudson De Leon on 02-19-2023 Nucleated RBC Auto Ql (Bld) 0.1 /100{WBC} 0-0.5 [facility] Platelet mean volume Auto (B ld) [Entitic vol]Ordered By: Hudson De Leon on 02-19-2023 Platelet mean volume (Bld) [Entitic vol] 9.0 fL 6.6-10.1 [facility] Platelets Auto (Bld) [#/Vol] Ordered By: Hudson De Leon on 02-19-2023 Platelets (Bld) [#/Vol] 198 10*3/uL 150-450 [facility] Potassium [Moles/volume] in Serum or PlasmaOrdered By: Hudson De Leon on 02-19-2023 Potassium [Moles/Vol] 4.0 mmol/L 3.5-5.[address] [facility] Protein Auto test strip (U) [Mass/Vol]Ordered By: Hudson De Leon on 02-19-2023 Protein (U) [Mass/Vol] Negative Negative [facility] Protein [Mass/volume] in Ser um or PlasmaOrdered By: Hudson De Leon on 02-19-2023 Protein [Mass/Vol] 6.7 g/dL 6.4-8.9 [facility] RBC Auto (Bld) [#/Vol]Ordere d By: Hudson De Leon on 02-19-2023 RBC (Bld) [#/Vol] 4.55 10*6/uL 3.90-5.60 [facility] Serum or plasma albumin/glob ulin mass ratioOrdered By: Hudson De Leon on 02-19-2023 Albumin/Globulin [Mass ratio] 1.6 {ratio} [facility] Serum or plasma anion gap de terminationOrdered By: Hudson De Leon on 02-19-2023 Anion gap [Moles/Vol] 9.4 mmol/L 6.0-15.[address] [facility] Sodium [Moles/volume] in Ser um or PlasmaOrdered By: Hudson De Leon on 02-19-2023 Sodium [Moles/Vol] 140 mmol/L 136-145 [facility] Specific gravity Auto test s trip (U) [Rel density]Ordered By: Hudson De Leon on 02-19-2023 Specific gravity (U) [Rel density] 1.018 1.001-1.03 0 [facility] Squamous epithelial cells de tection in urine sediment by light microscopyOrdered By: Hudson De Leon on 02-19-2023 Epithelial cells.squamous LM Ql (Urine sed) None seen [HPF] 0-2 [facility] Urea nitrogen [Mass/volume] in Serum or PlasmaOrdered By: Hudson De Leon on 02-19-2023 Urea nitrogen [Mass/Vol] 16 mg/dL 7-25 [facility] Urine bacteria detection by automated methodOrdered By: Hudson De Leon on 02-19-2023 Bacteria Auto Ql (U) None seen None Seen [facility] Urine clarity by refractomet ry automatedOrdered By: Hudson De Leon on 02-19-2023 Clarity Refractometry automated (U) Clear Clear [facility] Urine glucose measurement by automated test strip (mass/volume)Ordered By: Hudson De Leon on 02-19-2023 Glucose Auto test strip (U) [Mass/Vol] Normal mg/dL Normal [facility] Urine hemoglobin detection b y automated test stripOrdered By: Hudson De Leon on 02-19-2023 Hemoglobin Auto test strip Ql (U) Negative Negative [facility] Urine leukocyte esterase det ection by automated test stripOrdered By: Hudson De Leon on 02-19-2023 Leukocyte esterase Auto test strip Ql (U) Negative Negative [facility] Urobilinogen Auto test strip (U) [Mass/Vol]Ordered By: Hudson De Leon on 02-19-2023 Urobilinogen (U) [Mass/Vol] Normal mg/dL Normal [facility] WBC Auto (Bld) [#/Vol]Ordere d By: Hudson De Leon on 02-19-2023 WBC (Bld) [#/Vol] 4.7 10*3/uL 4.1-10.5 [facility] pH Auto test strip (U)Ordere d By: Hudson De Leon on 02-19-2023 pH (U) 5.5 [pH] 5.0-9.0 [facility] Screenson 10-17-2022 Screens [id number] [id number] Normal [facility] Patient Educationon 10-17-19 23 Patient Education Nephrology Dietary Guidelines to Help Prevent Kidney Stones Kidney stones are deposits of minerals and salts that form inside your kidneys. Your risk of developing kidney stones may be greater depending on your diet, your lifestyle, the medicines you take, and whether you have certain medical conditions. Most people can lower their chances of developing kidney stones by following the instructions below. Your dietitian may give you more specific instructions depending on your overall health and the type of kidney stones you tend to develop. What are tips for following this plan? Reading food labels ? Choose foods with no salt added or low-salt labels. Limit your salt (sodium) intake to less than 1,500 mg a day. ? Choose foods with calcium for each meal and snack. Try to eat about 300 mg of calcium at each meal. Foods that contain 200?500 mg of calcium a serving include: ? 8 oz (237 mL) of milk, inxoitt-faxxsruoodiy-zfc ry milk, and calcium-fortifiedfruit juice. Calcium-fortified means that calcium has been added to these drinks. ? 8 oz (237 mL) of kefir, yogurt, and soy yogurt. ? 4 oz (114 g) of tofu. ? 1 oz (28 g) of cheese. ? 1 cup (150 g) of dried figs. ? 1 cup (91 g) of cooked broccoli. ? One 3 oz (85 g) can of sardines or mackerel. Most people need 1,000?1,500 mg of calcium a day. Talk to your dietitian about how much calcium is recommended for you. Shopping ? Buy plenty of fresh fruits and vegetables. Most people do not need to avoid fruits and vegetables, even if these foods contain nutrients that may contribute to kidney stones. ? When shopping for convenience foods, choose: ? Whole pieces of fruit. ? Pre-made salads with dressing on the side. ? Low-fat fruit and yogurt smoothies. ? Avoid buying frozen meals or prepared deli foods. These can be high in sodium. ? Look for foods with live cultures, such as yogurt and kefir. ? Choose high-fiber grains, such as whole-wheat breads, oat bran, and wheat cereals. Cooking ? Do not add salt to food when cooking. Place a salt shaker on the table and allow each person to add his or her own salt to taste. ? Use vegetable protein, such as beans, textured vegetable protein (TVP), or tofu, instead of meat in pasta, casseroles, and soups. Meal planning ? Eat less salt, if told by your dietitian. To do this: ? Avoid eating processed or pre-made food. ? Avoid eating fast food. ? Eat less animal protein, including cheese, meat, poultry, or fish, if told by your dietitian. To do this: ? Limit the number of times you have meat, poultry, fish, or cheese each week. Eat a diet free of meat at least 2 days a week. ? Eat only one serving each day of meat, poultry, fish, or seafood. ? When you prepare animal protein, cut pieces into small portion sizes. For most meat and fish, one serving is about the size of the palm of your hand. ? Eat at least five servings of fresh fruits and vegetables each day. To do this: ? Keep fruits and vegetables on hand for snacks. ? Eat one piece of fruit or a handful of berries with breakfast. ? Have a salad and fruit at lunch. ? Have two kinds of vegetables at dinner. ? Limit foods that are high in a substance called oxalate. These include: ? Spinach (cooked), rhubarb, beets, sweet potatoes, and Taiwanese chard. ? Peanuts. ? Potato chips, macanese fries, and baked potatoes with skin on. ? Nuts and nut products. ? Chocolate. ? If you regularly take a diuretic medicine, make sure to eat at least 1 or 2 servings of fruits or vegetables that are high in potassium each day. These include: ? Avocado. ? Banana. ? Barron, prune, carrot, or tomato juice. ? Baked potato. ? Cabbage. ? Beans and split peas. Lifestyle ? Drink enough fluid to keep your urine pale yellow. This is the most important thing you can do. Spread your fluid intake throughout the day. ? If you drink alcohol: ? Limit how much you use to: ? 0?1 drink a day for women who are not . ? 0?2 drinks a day for men. ? Be aware of how much alcohol is in your drink. In the [place] one drink equals one 12 oz bottle of beer (355 mL), one 5 oz glass of wine (148 mL), or one 1? oz glass of hard liquor (44 mL). ? Lose weight if told by your health care provider. Work with your dietitian to find an eating plan and weight loss strategies that work best for you. General information ? Talk to your health care provider and dietitian about taking daily supplements. You may be told the following depending on your health and the cause of your kidney stones: ? Not to take supplements with vitamin C. ? To take a calcium supplement. ? To take a daily probiotic supplement. ? To take other supplements such as magnesium, fish oil, or vitamin B6. ? Take phlj-agc-mpwyhwo and prescription medicines only as told by your health care provider. These include supplements. What foods should I limit? Limit your in (more content not included)... Normal [facility] Urology Office/Clinic Noteon 10-16-2022 Urology Office/Clinic Note Chief Complaint pt here for 6 month f/u HPI Staff Pt is a 62 yr old Male here today for a 6 month f/u to litholink and stone analysis. Pts previous DX: abdominal pain, BPH, family history of prostate cancer, kidney stones. Pts currently taking Tizanidine 4mg. S/P ESWL 01/19/22, lithotripsy 01/19/22. Dysuria: denies Incomplete bladder emptying: denies Hematuria: denies Frequency: denies Urgency: sometimes Nocturia: 1x Stream: strong,steady stream Leaking: denies Post void dripping: denies Wearing pads/ Depends: denies Urge incontinence: denies Stress incontinence: denies Incontinence without Sensory Awareness: denies Abdominal pain: denies Flank pain: both sides but pt states he did have back surgery so it may be from that Sexual complaints: _ History of Present Illness Tests reviewed: reviewed UA, litholink. I have reviewed the previous health record information and history for this patient from Dr. Machado. I have reviewed and verified the staff HPI to be accurate for this encounter. There have been no associated fever, chills, flank pain, or blood in the urine. Denies any urinary infections since last encounter. Review of Systems PHQ Score Initial Depression Screen Score: 0 ROS - Provider Constitutional: denies weight loss, denies hot flashes. Eyes: denies eye problems. Gastrointestinal: denies nausea, denies vomiting. Cardiovascular: denies chest pain or angina. Integumentary: no dryness Musculoskeletal: denies musculoskeletal symptoms. ENMT: denies otolaryngeal symptoms. Respiratory: no shortness of breath. Heme/Lymph: denies easy bleeding tendency, denies easy bruising tendency. Psychiatric: no confusion, no anxiety. Genitourinary: See HPI. Physical Exam Vitals & Measurements HR: 72(Peripheral) BP: 186/94 HT: 67 in HT: 170 cm WT: 104.3 kg WT: 229.46 lb BMI: 36.09 General Appearance: alert, no distress, well nourished, well developed male. Genitourinary: normal scrotum, normal testes, normal urethra, normal epididymis, normal vas deferens/spermatic cord. Flank Pain: none. Bladder: nonpalpable. Assessment/Plan 1. Kidney stone (N20.0: Calculus of kidney) Hx of lithotripsy 12/2021 and R ESWL 12/2021. Stone analysis 02/15/22 - CaOx mono 90% and CaOx di 10 %. Litholink 09/03/22 - Hypomagnesuria. 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 Borderline low urine pH 5.74. Mild uric acid supersaturation 1.03. Urine pH today 5.5. Pt did not complete blood work portion of metabolic workup. Reviewed findings from litholink and stone analysis. Educated pt that dietary modifications are unlikely to improve citric acid level enough. Pt has been treated twice for stones and passed two on his own. Has punctate stone remaining on L per last OV note. Follow up Jan 2023 with KUB or sooner if needed. Pt understands and agrees with plan. -Order for blood work portion of metabolic workup, to get done after he as been taking Effer-K 2. BPH (benign prostatic hyperplasia) (N40.0: Benign prostatic hyperplasia without lower urinary tract symptoms) UA today negative for blood and infection. Not taking any BPH meds. 3. 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 -Start Potassium Citrate 10 mEq 2 tabs bid. Rx sent to [facility]. 4. Family history of prostate cancer in father (Z80.42: Family history of malignant neoplasm of prostate) 5. Erectile dysfunction (N52.9: Male erectile dysfunction, unspecified) Has occasional erectile dysfunction. Has also had back surgeries recently. Discussed options for ED, including oral medications, erection pumps, MUSE intraurethral pellet, intracorporal injection therapy, surgical options, shockwave therapy. -Start Cialis 10 mg prn. SEs discussed. Rx sent to [facility]. Recommended GoodRx. Overall the patient presents for his follow-up regarding the 24-hour urine collection. He never did get the blood work. We had a long discussion about stone formation and the role of citrate as a stone inhibitor. His level is low enough that I feel that we need to recommend prescription management. Electrolytes will need to be checked about 3 weeks after starting this medication to check potassium levels. He will do the blood work/metabolic work-up completion at the same time. We then had an extensive discussion about ED and recommendation made to start the oral medications. We will see him back around January or February of this year with a KUB to follow-up on his stones. He will call to get the results of the blood work as described above. Follow-up With When Contact Information Shun MACHADO MD, URL [address] [place] [address] [place] [phone]- Additional Instructions: jan 2023 with KUB, blood work Patient Education Dietary Guidelines to Help Prevent Kidney Stones IMary, personally scribed for Dr. Machado on 10/16/2022 15:04:19. . Documentation recorded by the Mary correa a (more content not included)... Normal [facility] Comment on above: Result Comment: Elec tronically Signed By: Shun MACHADO MD\.br\Date and Time Signed: 10/16/22 15:08 EDT\.br\Electronically Co-Signed By: Mary Alicea.br\Date and Time Co-Signed: 10/16/22 15:04 EDT\.br\Electronically Co-Signed By: Mary Alicea.br\Date and Time Co-Signed: 10/16/22 15:06 EDT Alanine aminotransferase [En zymatic activity/volume] in Serum or PlasmaOrdered By: Hudson De Leon on 10-15-2022 ALT [Catalytic activity/Vol] 19 U/L 7-52 [facility] Albumin [Mass/volume] in Ser um or Plasma by Bromocresol green (BCG) dye binding methoOrdered By: Hudson De Leon on 10-15-2022 Albumin BCG dye [Mass/Vol] 4.1 g/dL 3.5-5.7 [facility] Alkaline phosphatase [Enzyma tic activity/volume] in Serum or PlasmaOrdered By: Hudson De Leon on 10-15-2022 ALP [Catalytic activity/Vol] 89 U/L 34-104 [facility] Aspartate aminotransferase [ Enzymatic activity/volume] in Serum or PlasmaOrdered By: Hudson De Leon on 10-15-2022 AST [Catalytic activity/Vol] 19 U/L 13-39 [facility] Automated erythrocytes count in urine sediment (number/area)Ordered By: Hudson De Leon on 10-15-2022 RBC Auto (Urine sed) [#/Area] 1-2 [HPF] 0-4 [facility] Automated leukocytes count i n urine sediment (number/area)Ordered By: Hudson De Leon on 10-15-2022 WBC Auto (Urine sed) [#/Area] None seen [HPF] 0-4 [facility] Basophils Auto (Bld) [#/Vol] Ordered By: Hudson De Leon on 10-15-2022 Basophils (Bld) [#/Vol] 0.0 10*3/uL 0.0-0.2 [facility] Basophils/100 WBC Auto (Bld) Ordered By: Hudson De Leon on 10-15-2022 Basophils/100 WBC (Bld) 0.5 % . [facility] Bilirubin Test strip Ql (U)O rdered By: Hudson De Leon on 10-15-2022 Bilirubin Ql (U) Negative Negative [facility] Bilirubin.total [Mass/volume ] in Serum or PlasmaOrdered By: Hudson De Leon on 10-15-2022 Bilirubin [Mass/Vol] 0.6 mg/dL 0.3-1.0 [facility] Calcium [Mass/volume] in Ser um or PlasmaOrdered By: Hudson De Leon on 10-15-2022 Calcium [Mass/Vol] 8.5 mg/dL 8.6-10.3 [facility] Carbon dioxide, total [Moles /volume] in Serum or PlasmaOrdered By: Hudson De Leon on 10-15-2022 CO2 [Moles/Vol] 27.8 mmol/L 21.0-31.0 [facility] Chloride [Moles/volume] in S lenny or PlasmaOrdered By: Hudson De Leon on 10-15-2022 Chloride [Moles/Vol] 106 mmol/L 98-107 [facility] Color Auto (U)Ordered By: Maykel De Leon on 10-15-2022 Color (U) Yellow Yellow [facility] Complement C3on 10-15-2022 Complement C3 124 mg/dL Normal 82-167 [facility] Comment on above: Result Comment: Perf ormed at: CB - [facility] [place] [address] Database Architect: Derek Toscano PhD, Phone: [phone] Performed By: #### C BC, ESR, ADDONUAPLUS, CMP #### [facility] [address] [place] [address] #### C4, C3, CH50 #### [facility] , Complement C4on 10-15-2022 Complement C4 23 mg/dL Normal 12-38 [facility] Comment on above: Result Comment: PERF ORMED BY: [place] [address] PATHOLOGIST THERAPY TEACHER KRISTIE BAKER M.D. Performed By: #### C BC, ESR, ADDONUAPLUS, CMP #### [facility] [address] [place] [address] [place] #### C4, C3, CH50 #### [facility] , Complement Total (CH50)on Complement Total (CH50) 53 Normal >41 [facility] Comment on above: Result Comment: Age Male Female 1 - 30 days Not Estab. Not Estab. 31 days - 6 months >32 >20 7 months - 17 years >39 >39 >17 years >41 >41 NOTE: The adult ( >17 years ) reference interval range is used to flag abnormals on this report. If the patient is 17 years old or younger, use the table above to determine out of range values. Performed at: - [facility] [id number] Database Architect: Derek Tocsano PhD, Phone: [phone] PERFORMED BY: [place] [address] PATHOLOGIST THERAPY TEACHER KRISTIE BAKER M.D. Performed By: #### C BC, ESR, ADDONUAPLUS, CMP #### [address] #### C4, C3, CH50 #### [facility] , Complete Blood Count Auto Di ffon 10-15-2022 Basophils (Bld) [#/Vol] 0.0 10*3/uL Normal 0.0-0.2 [facility] Comment on above: Performed By: #### C 4, C3, CH50 #### [facility] , #### ADDONUAPLUS, CBC, ESR, CMP #### [address] Basophils/100 WBC (Bld) 0.5 % Normal . [facility] Comment on above: Performed By: #### C 4, C3, CH50 #### [facility] , #### ADDONUAPLUS, CBC, ESR, CMP #### [facility] [address] [place] [address] Eosinophils (Bld) [#/Vol] 0.1 10*3/uL Normal 0.0-0.45 [facility] Comment on above: Performed By: #### C 4, C3, CH50 #### [facility] , #### ADDONUAPLUS, CBC, ESR, CMP #### [address] Eosinophils/100 WBC (Bld) 1.6 % Normal . [facility] Comment on above: Performed By: #### C 4, C3, CH50 #### [facility] , #### ADDONUAPLUS, CBC, ESR, CMP #### [address] Erythrocyte distribution width (RBC) [Ratio] 14.2 % Normal 12.0-14.8 [facility] Comment on above: Performed By: #### C 4, C3, CH50 #### [facility] , #### ADDONUAPLUS, CBC, ESR, CMP #### [address] Hematocrit (Bld) [Volume fraction] 42.6 % Normal 38.8-50.0 [facility] Comment on above: Performed By: #### C 4, C3, CH50 #### [facility] , #### ADDONUAPLUS, CBC, ESR, CMP #### [address] Hemoglobin (Bld) [Mass/Vol] 14.4 g/dL Normal 13.0-17.0 [facility] Comment on above: Performed By: #### C 4, C3, CH50 #### [facility] , #### ADDONUAPLUS, CBC, ESR, CMP #### [address] Lymphocytes (Bld) [#/Vol] 1.0 10*3/uL Normal 1.00-4.8 [facility] Comment on above: Performed By: #### C 4, C3, CH50 #### [facility] , #### ADDONUAPLUS, CBC, ESR, CMP #### [place] [address] [place] Lymphocytes/100 WBC (Bld) 20.0 % Normal . [facility] Comment on above: Performed By: #### C 4, C3, CH50 #### [facility] , #### ADDONUAPLUS, CBC, ESR, CMP #### [address] MCH (RBC) [Entitic mass] 31.2 pg Normal 27.5-35.2 [facility] Comment on above: Performed By: #### C 4, C3, CH50 #### [facility] , #### ADDONUAPLUS, CBC, ESR, CMP #### [address] MCV (RBC) [Entitic vol] 92.8 fL Normal 83.5-101 [facility] Comment on above: Performed By: #### C 4, C3, CH50 #### [facility] , #### ADDONUAPLUS, CBC, ESR, CMP #### [address] Mean Corpuscular HGB Conc 33.7 g/dL Normal 32.5-35.6 [facility] Comment on above: Performed By: #### C 4, C3, CH50 #### [facility] , #### ADDONUAPLUS, CBC, ESR, CMP #### [address] Monocytes (Bld) [#/Vol] 0.4 10*3/uL Normal 0.0-0.8 [facility] Comment on above: Performed By: #### C 4, C3, CH50 #### [facility] , #### ADDONUAPLUS, CBC, ESR, CMP #### [address] Monocytes/100 WBC (Bld) 8.6 % Normal . [facility] Comment on above: Performed By: #### C 4, C3, CH50 #### [facility] , #### ADDONUAPLUS, CBC, ESR, CMP #### [address] Neutrophils (Bld) [#/Vol] 3.4 10*3/uL Normal 1.8-7.7 [facility] Comment on above: Performed By: #### C 4, C3, CH50 #### [facility] , #### ADDONUAPLUS, CBC, ESR, CMP #### [address] Neutrophils/100 WBC (Bld) 69.3 % Normal . [facility] Comment on above: Performed By: #### C 4, C3, CH50 #### [facility] , #### ADDONUAPLUS, CBC, ESR, CMP #### [address] NRBC% 0.1 /100{WBC} Normal 0-0.5 [facility] Comment on above: Performed By: #### C 4, C3, CH50 #### [facility] , #### ADDONUAPLUS, CBC, ESR, CMP #### [address] Platelet mean volume (Bld) [Entitic vol] 9.1 fL Normal 6.6-10.1 [facility] Comment on above: Performed By: #### C 4, C3, CH50 #### [facility] , #### ADDONUAPLUS, CBC, ESR, CMP #### [address] Platelets (Bld) [#/Vol] 196 10*3/uL Normal 150-450 [facility] Comment on above: Performed By: #### C 4, C3, CH50 #### [facility] , #### ADDONUAPLUS, CBC, ESR, CMP #### [address] RBC (Bld) [#/Vol] 4.60 10*6/uL Normal 3.90-5.60 [facility] Comment on above: Performed By: #### C 4, C3, CH50 #### [facility] , #### ADDONUAPLUS, CBC, ESR, CMP #### [address] WBC (Bld) [#/Vol] 4.9 10*3/uL Normal 4.1-10.5 [facility] Comment on above: Performed By: #### C 4, C3, CH50 #### [facility] , #### ADDONUAPLUS, CBC, ESR, CMP #### [address] Comprehensive Metabolic Pane tanika 10-15-2022 Albumin [Mass/Vol] 4.1 g/dL Normal 3.5-5.7 [facility] Comment on above: Performed By: #### C BC, ESR, ADDONUAPLUS, CMP #### [facility] [address] [place] [address] #### C4, C3, CH50 #### [facility] , Albumin/Globulin [Mass ratio] 1.5 {ratio} Normal [facility] Comment on above: Performed By: #### C BC, ESR, ADDONUAPLUS, CMP #### [facility] [address] [place] [address] #### C4, C3, CH50 #### [facility] , ALP [Catalytic activity/Vol] 89 U/L Normal 34-104 [facility] Comment on above: Result Comment: PERF ORMED BY: [place] [address] PATHOLOGIST THERAPY TEACHER KRISTIE BAKER M.D. Performed By: #### C BC, ESR, ADDONUAPLUS, CMP #### [place] [address] [place] #### C4, C3, CH50 #### [facility] , ALT [Catalytic activity/Vol] 19 U/L Normal 7-52 [facility] Comment on above: Performed By: #### C BC, ESR, ADDONUAPLUS, CMP #### [facility] [address] [place] [address] [place] #### C4, C3, CH50 #### [facility] , Anion gap [Moles/Vol] 9.6 mmol/L Normal 6.0-15.[address] [facility] Comment on above: Performed By: #### C BC, ESR, ADDONUAPLUS, CMP #### [facility] [address] [place] [address] [place] #### C4, C3, CH50 #### [facility] , AST [Catalytic activity/Vol] 19 U/L Normal 13-39 [facility] Comment on above: Performed By: #### C BC, ESR, ADDONUAPLUS, CMP #### [facility] [address] [place] [address] [place] #### C4, C3, CH50 #### [facility] , Bilirubin [Mass/Vol] 0.6 mg/dL Normal 0.3-1.0 [facility] Comment on above: Performed By: #### C BC, ESR, ADDONUAPLUS, CMP #### [facility] [address] [place] [address] [place] #### C4, C3, CH50 #### [facility] , Calcium [Mass/Vol] 8.5 mg/dL Low 8.6-10.3 [facility] Comment on above: Performed By: #### C BC, ESR, ADDONUAPLUS, CMP #### [facility] [address] [place] [address] [place] #### C4, C3, CH50 #### [facility] , Chloride [Moles/Vol] 106 mmol/L Normal 98-107 [facility] Comment on above: Performed By: #### C BC, ESR, ADDONUAPLUS, CMP #### [facility] [address] [place] [address] [place] #### C4, C3, CH50 #### [facility] , CO2 [Moles/Vol] 27.8 mmol/L Normal 21.0-31.0 [facility] Comment on above: Performed By: #### C BC, ESR, ADDONUAPLUS, CMP #### [place] [address] [place] #### C4, C3, CH50 #### [facility] , Creatinine [Mass/Vol] 1.09 mg/dL Normal 0.70-1.[address] [facility] Comment on above: Performed By: #### C BC, ESR, ADDONUAPLUS, CMP #### [place] [address] [place] #### C4, C3, CH50 #### [facility] , GFR/1.73 sq M.predicted MDRD (S/P/Bld) [Vol rate/Area] mL/min/{1.73_m2} [facility] Comment on above: Performed By: #### C BC, ESR, ADDONUAPLUS, CMP #### [place] [address] [place] #### C4, C3, CH50 #### [facility] , Globulin (S) [Mass/Vol] 2.8 g/dL [facility] Comment on above: Performed By: #### C BC, ESR, ADDONUAPLUS, CMP #### [facility] [address] [place] [address] [place] #### C4, C3, CH50 #### [facility] , Glucose [Mass/Vol] 139 mg/dL High 70-100 [facility] Comment on above: Result Comment: Trail Glucose Reference Range is dependent on time and content of last meal. Glucose of more than 200 mg/dL in a nonstressed, ambulatory subject supports the diagnosis of Diabetes Mellitus. ADA recommended reference range Performed By: #### C BC, ESR, ADDONUAPLUS, CMP #### [place] [address] [place] #### C4, C3, CH50 #### [facility] , Potassium [Moles/Vol] 4.4 mmol/L Normal 3.5-5.[address] [facility] Comment on above: Performed By: #### C BC, ESR, ADDONUAPLUS, CMP #### [place] [address] [place] #### C4, C3, CH50 #### [facility] , Protein [Mass/Vol] 6.9 g/dL Normal 6.4-8.9 [facility] Comment on above: Performed By: #### C BC, ESR, ADDONUAPLUS, CMP #### [place] [address] [place] #### C4, C3, CH50 #### [facility] , Sodium [Moles/Vol] 139 mmol/L Normal 136-145 [facility] Comment on above: Performed By: #### C BC, ESR, ADDONUAPLUS, CMP #### [place] [address] [place] #### C4, C3, CH50 #### [facility] , Urea nitrogen [Mass/Vol] 24 mg/dL Normal 7-25 [facility] Comment on above: Performed By: #### C BC, ESR, ADDONUAPLUS, CMP #### [facility] [address] [place] [address] [place] #### C4, C3, CH50 #### [facility] , Creatinine [Mass/volume] in Serum or PlasmaOrdered By: Hudson De Leon on 10-15-2022 Creatinine [Mass/Vol] 1.09 mg/dL 0.70-1.[address] [facility] Dipstick and Microscopicon 0 10-15-2022 Appearance (U) Clear Normal Clear [facility] Comment on above: Order Comment: Name Collection Type:: Clean-Voided Midstream Performed By: #### C 4, C3, CH50 #### [facility] , #### ADDONUAPLUS, CBC, ESR, CMP #### [facility] [address] Bacteria,Urine None Seen Normal None Seen [facility] Comment on above: Order Comment: Name Collection Type:: Clean-Voided Midstream Performed By: #### C 4, C3, CH50 #### [facility] , #### ADDONUAPLUS, CBC, ESR, CMP #### [facility] [address] [place] [address] [place] Bilirubin,Urine Negative Normal Negative [facility] Comment on above: Order Comment: Name Collection Type:: Clean-Voided Midstream Performed By: #### C 4, C3, CH50 #### [facility] , #### ADDONUAPLUS, CBC, ESR, CMP #### [facility] [address] [place] [address] [place] Color (U) Yellow Normal Yellow [facility] Comment on above: Order Comment: Name Collection Type:: Clean-Voided Midstream Performed By: #### C 4, C3, CH50 #### [facility] , #### ADDONUAPLUS, CBC, ESR, CMP #### [facility] [address] [place] [address] [place] Glucose Ql (U) Normal Normal Normal [facility] Comment on above: Order Comment: Name Collection Type:: Clean-Voided Midstream Performed By: #### C 4, C3, CH50 #### [facility] , #### ADDONUAPLUS, CBC, ESR, CMP #### [facility] [address] [place] [address] [place] Hyaline Casts,Urine None Seen Normal 0-8 [facility] Comment on above: Order Comment: Name Collection Type:: Clean-Voided Midstream Result Comment: PERF ORMED BY: [place] [address] PATHOLOGIST THERAPY TEACHER KRISTIE BAKER M.D. Performed By: #### C 4, C3, CH50 #### [facility] , #### ADDONUAPLUS, CBC, ESR, CMP #### [address] Ketones Ql (U) Negative Normal Negative [facility] Comment on above: Order Comment: Name Collection Type:: Clean-Voided Midstream Performed By: #### C 4, C3, CH50 #### [facility] , #### ADDONUAPLUS, CBC, ESR, CMP #### [address] Leukocyte esterase Test strip Ql (U) Negative Normal Negative [facility] Comment on above: Order Comment: Name Collection Type:: Clean-Voided Midstream Performed By: #### C 4, C3, CH50 #### [facility] , #### ADDONUAPLUS, CBC, ESR, CMP #### [facility] [address] [place] [address] Nitrite,Urine Negative Normal Negative [facility] Comment on above: Order Comment: Name Collection Type:: Clean-Voided Midstream Performed By: #### C 4, C3, CH50 #### [facility] , #### ADDONUAPLUS, CBC, ESR, CMP #### [address] Occult Blood,Urine Negative Normal Negative [facility] Comment on above: Order Comment: Name Collection Type:: Clean-Voided Midstream Performed By: #### C 4, C3, CH50 #### [facility] , #### ADDONUAPLUS, CBC, ESR, CMP #### [place] [address] [place] pH (U) 5.5 [pH] Normal 5.0-9.0 [facility] Comment on above: Order Comment: Name Collection Type:: Clean-Voided Midstream Performed By: #### C 4, C3, CH50 #### [facility] , #### ADDONUAPLUS, CBC, ESR, CMP #### [address] Protein,Urine Negative Normal Negative [facility] Comment on above: Order Comment: Name Collection Type:: Clean-Voided Midstream Performed By: #### C 4, C3, CH50 #### [facility] , #### ADDONUAPLUS, CBC, ESR, CMP #### [address] RBC,Urine 1-2 Normal 0-4 [facility] Comment on above: Order Comment: Name Collection Type:: Clean-Voided Midstream Performed By: #### C 4, C3, CH50 #### [facility] , #### ADDONUAPLUS, CBC, ESR, CMP #### [address] Specificy [place],Urine 1.022 Normal 1.001-1.03 0 [facility] Comment on above: Order Comment: Name Collection Type:: Clean-Voided Midstream Performed By: #### C 4, C3, CH50 #### [facility] , #### ADDONUAPLUS, CBC, ESR, CMP #### [address] Squamous Epithelial Cell,Urine None Seen Normal 0-2 [facility] Comment on above: Order Comment: Name Collection Type:: Clean-Voided Midstream Performed By: #### C 4, C3, CH50 #### [facility] , #### ADDONUAPLUS, CBC, ESR, CMP #### [address] Urobilinogen,Urine Normal Normal Normal [facility] Comment on above: Order Comment: Name Collection Type:: Clean-Voided Midstream Performed By: #### C 4, C3, CH50 #### [facility] , #### ADDONUAPLUS, CBC, ESR, CMP #### [facility] [address] [place] [address] WBC,Urine None Seen Normal 0-4 [facility] Comment on above: Order Comment: Name Collection Type:: Clean-Voided Midstream Performed By: #### C 4, C3, CH50 #### [facility] , #### ADDONUAPLUS, CBC, ESR, CMP #### [facility] [address] [place] [address] Eosinophils Auto (Bld) [#/Vo l]Ordered By: Hudson De Leon on 10-15-2022 Eosinophils (Bld) [#/Vol] 0.1 10*3/uL 0.0-0.45 [facility] Eosinophils/100 WBC Auto (Bl d)Ordered By: Hudson De Leon on 10-15-2022 Eosinophils/100 WBC (Bld) 1.6 % . [facility] Erythrocyte Sedimentation Ra natan 10-15-2022 ESR (Bld) [Velocity] 6 mm/h Normal 0-19 [facility] Comment on above: Result Comment: PERF ORMED BY: [place] [address] PATHOLOGIST THERAPY TEACHER KRISTIE BAKER M.D. Performed By: #### C 4, C3, CH50 #### [facility] , #### ADDONUAPLUS, CBC, ESR, CMP #### [facility] [address] [place] [address] Erythrocyte distribution wid th Auto (RBC) [Ratio]Ordered By: Hudson De Leon on 10-15-2022 Erythrocyte distribution width (RBC) [Ratio] 14.2 % 12.0-14.8 [facility] Erythrocyte sedimentation ra te by Photometric methodOrdered By: Hudson De Leon on 10-15-2022 ESR Photometric method (Bld) [Velocity] 6 mm/hr 0-19 [facility] Globulin Calc (S) [Mass/Vol] Ordered By: Hudson De Leon on 10-15-2022 Globulin (S) [Mass/Vol] 2.8 g/dL [facility] Glucose [Mass/volume] in Ser um or PlasmaOrdered By: Hudson De Leon on 10-15-2022 Glucose [Mass/Vol] 139 mg/dL 70-100 [facility] Comment on above: ADA recommended refe rence rangeRandom Glucose Reference Range is dependent on time and content of last meal. Glucose of more than 200 mg/dL in a nonstressed, ambulatory subject supports the diagnosis of Diabetes Mellitus. Hematocrit Auto (Bld) [Volum e fraction]Ordered By: Hudson De Leon on 10-15-2022 Hematocrit (Bld) [Volume fraction] 42.6 % 38.8-50.0 [facility] Hemoglobin [Mass/volume] in BloodOrdered By: Hudson De Leon on 10-15-2022 Hemoglobin (Bld) [Mass/Vol] 14.4 g/dL 13.0-17.0 [facility] Ketones Auto test strip (U) [Mass/Vol]Ordered By: Hudson De Leon on 10-15-2022 Ketones (U) [Mass/Vol] Negative Negative [facility] - UrinalysisOrder ed By: Hudson De Leon on 10-15-2022 Hyaline casts LM Ql (Urine sed) None seen [LPF] 0-8 [facility] Leukocytes [#/volume] correc leah for nucleated erythrocytes in Blood by Automated counOrdered By: Hudson De Leon on 10-15-2022 WBC corrected for nucl RBC Auto (Bld) [#/Vol] 4.9 10*3/uL 4.1-10.5 [facility] [facility] Lymphocytes Auto (Bld) [#/Vo l]Ordered By: Hudson De Leon on 10-15-2022 Lymphocytes (Bld) [#/Vol] 1.0 10*3/uL 1.00-4.8 [facility] Lymphocytes/100 WBC Auto (Bl d)Ordered By: Hudson De Leon on 10-15-2022 Lymphocytes/100 WBC (Bld) 20.0 % . [facility] MCH Auto (RBC) [Entitic mass ]Ordered By: Hudson De Leon on 10-15-2022 MCH (RBC) [Entitic mass] 31.2 pg 27.5-35.2 [facility] MCHC Auto (RBC) [Mass/Vol]Or dered By: Hudson De Leon on 10-15-2022 MCHC (RBC) [Mass/Vol] 33.7 g/dL 32.5-35.[address] [facility] MCV Auto (RBC) [Entitic vol] Ordered By: Hudson De Leon on 10-15-2022 MCV (RBC) [Entitic vol] 92.8 fL 83.5-101 [facility] Monocytes Auto (Bld) [#/Vol] Ordered By: Hudson De Leon on 10-15-2022 Monocytes (Bld) [#/Vol] 0.4 10*3/uL 0.0-0.8 [facility] Monocytes/100 WBC Auto (Bld) Ordered By: Hudson De Leon on 10-15-2022 Monocytes/100 WBC (Bld) 8.6 % . [facility] Neutrophils Auto (Bld) [#/Vo l]Ordered By: Hudson De Leon on 10-15-2022 Neutrophils (Bld) [#/Vol] 3.4 10*3/uL 1.8-7.7 [facility] Neutrophils/100 WBC Auto (Bl d)Ordered By: Hudson De Leon on 10-15-2022 Neutrophils/100 WBC (Bld) 69.3 % . [facility] Nitrite Test strip Ql (U)Ord ered By: Hudson De Leon on 10-15-2022 Nitrite Ql (U) Negative Negative [facility] No Panel InformationOrdered By: Hudson De Leon on 10-15-2022 Estimated GFR (CKD-EPI) > 60.0 mL/Min [facility] Creatinine Clearance (Chem N/A [facility] Nucleated erythrocytes [Pres ence] in Blood by Automated countOrdered By: Hudson De Leon on 10-15-2022 Nucleated RBC Auto Ql (Bld) 0.1 /100{WBC} 0-0.5 [facility] Platelet mean volume Auto (B ld) [Entitic vol]Ordered By: Hudson De Leon on 10-15-2022 Platelet mean volume (Bld) [Entitic vol] 9.1 fL 6.6-10.1 [facility] Platelets Auto (Bld) [#/Vol] Ordered By: Hudson De Leon on 10-15-2022 Platelets (Bld) [#/Vol] 196 10*3/uL 150-450 [facility] Potassium [Moles/volume] in Serum or PlasmaOrdered By: Hudson De Leon on 10-15-2022 Potassium [Moles/Vol] 4.4 mmol/L 3.5-5.[address] [facility] Protein Auto test strip (U) [Mass/Vol]Ordered By: Hudson De Leon on 10-15-2022 Protein (U) [Mass/Vol] Negative Negative [facility] Protein [Mass/volume] in Ser um or PlasmaOrdered By: Hudson De Leon on 10-15-2022 Protein [Mass/Vol] 6.9 g/dL 6.4-8.9 [facility] RBC Auto (Bld) [#/Vol]Ordere d By: Hudson De Leon on 10-15-2022 RBC (Bld) [#/Vol] 4.60 10*6/uL 3.90-5.60 [facility] Serum or plasma albumin/glob ulin mass ratioOrdered By: Hudson De Leon on 10-15-2022 Albumin/Globulin [Mass ratio] 1.5 {ratio} [facility] Serum or plasma anion gap de terminationOrdered By: Hudson De Leon on 10-15-2022 Anion gap [Moles/Vol] 9.6 mmol/L 6.0-15.[address] [facility] Sodium [Moles/volume] in Ser um or PlasmaOrdered By: Hudson De Leon on 10-15-2022 Sodium [Moles/Vol] 139 mmol/L 136-145 [facility] Specific gravity Auto test s trip (U) [Rel density]Ordered By: Hudson De Leon on 10-15-2022 Specific gravity (U) [Rel density] 1.022 1.001-1.03 0 [facility] Squamous epithelial cells de tection in urine sediment by light microscopyOrdered By: Hudson De Leon on 10-15-2022 Epithelial cells.squamous LM Ql (Urine sed) None seen [HPF] 0-2 [facility] Urea nitrogen [Mass/volume] in Serum or PlasmaOrdered By: Hudson De Leon on 10-15-2022 Urea nitrogen [Mass/Vol] 24 mg/dL 7-25 [facility] Urine bacteria detection by automated methodOrdered By: Hudson De Leon on 10-15-2022 Bacteria Auto Ql (U) None seen None Seen [facility] Urine clarity by refractomet ry automatedOrdered By: Hudson De Leon on 10-15-2022 Clarity Refractometry automated (U) Clear Clear [facility] Urine glucose measurement by automated test strip (mass/volume)Ordered By: Hudson De Leon on 10-15-2022 Glucose Auto test strip (U) [Mass/Vol] Normal mg/dL Normal [facility] Urine hemoglobin detection b y automated test stripOrdered By: Hudson De Leon on 10-15-2022 Hemoglobin Auto test strip Ql (U) Negative Negative [facility] Urine leukocyte esterase det ection by automated test stripOrdered By: Hudson De Leon on 10-15-2022 Leukocyte esterase Auto test strip Ql (U) Negative Negative [facility] Urobilinogen Auto test strip (U) [Mass/Vol]Ordered By: Hudson De Leon on 10-15-2022 Urobilinogen (U) [Mass/Vol] Normal mg/dL Normal [facility] WBC Auto (Bld) [#/Vol]Ordere d By: Hudson De Leon on 10-15-2022 WBC (Bld) [#/Vol] 4.9 10*3/uL 4.1-10.5 [facility] pH Auto test strip (U)Ordere d By: Hudson De Leon on 10-15-2022 pH (U) 5.5 [pH] 5.0-9.0 [facility] Ambulatory Visit Summaryon 0 10-02-2022 Ambulatory Visit Summary JAY CARR :1960 Visit Date:10/02/2022 Ambulatory Visit Instructions Your Diagnosis Abnormal gallbladder ultrasound Your Care Team Attending Physician - DOREEN RIVERA, Arely Costello Primary Care Physician - Audrey Armstrong MD This Is Your Medications List Contact prescribing physician if questions or concerns NIFEdipine (NIFEdipine 30 mg ER Tab) hydroxychloroquine (hydroxychloroquine 200 mg Tab) irbesartan (irbesartan 300 mg Tab) pantoprazole (Protonix 40 mg Tab-DR) tizanidine (tiZANidine 4 mg Tab) Procedures Performed ESWL - Extracorporeal shockwave lithotripsy for renal calculus (01/19/2022), Lithotripsy (01/19/2022), Arthroplasty of knee, Cervical discectomy, Colonoscopy, Excision of melanoma, Fusion of tarsal joints, XLIF - extreme lateral lumbar interbody fusion. Discharge Vitals Heart Rate (Peripheral) 76 Respiratory Rate 16 Blood Pressure 144/80 Height 178 cm Height 70 in Weight 105 kg Weight 231 lb BMI 33.14 What to do next Scheduled Follow-Up Appointments Saturday 2:15 PM EDT With: CHRIS RIEVRA, Shun Mirza Where: [facility] General Surgery Office/Clini c Noteon 10-02-2022 General Surgery Office/Clinic Note Chief Complaint re-evaluate nausea, loose stools, ABD pain and abnormal GB US HPI Staff Presents to re-evaluate nausea, loose stools, abdominal pain and abnormal GB US. Last evaluation 01/2022. RUQ US completed 08/31/22 with stable structure within gall bladder. Reports abdominal pain has resolved. He has rare occasion of nausea and loose stools. Has been following low fat diet. History of Present Illness 62 yo male with h/o htn, Lupus, Reynaud's disease, migraines, osteoarthritis, nephrolithiasis, chronic back pain; seen in f/u for abnormal GB US; initially seen 01/2022, had 7 mm adherent density in fundus of gallbladder, possible polyp; no inflammation or wall thickening, no ductal dilation; recent repeat US unchanged; denies abd pain or fatty food intolerance; no h/o jaundice or pancreatitis; no previous abd operations; no asa or NSAID use; no tobacco use. Review of Systems PHQ Score Initial Depression Screen Score: 0 ROS - Provider Constitutional: no fever, no sweats, no weight loss. Eyes: no glasses, no blurred vision, no visual loss. ENMT: no dentures, no hoarseness, no swallowing difficulties, no hearing loss, no ear infection(s), no nose bleeds. Cardiovascular: normal blood pressure, no chest pain, regular heartbeat, no heart murmur. Respiratory: no shortness of breath, no cough, no asthma, no wheezing. Gastrointestinal: no nausea, no vomiting, no diarrhea, no constipation, no blood in stool, no change in bowel habits, no abdominal pain, no hepatitis. Genitourinary: no kidney stones, no urine infection, no dysuria. Musculoskeletal: no pain, no weakness. Skin: no changing moles, no rash, no skin lumps. Neurologic: no seizures, no epilepsy, no headache. Psychiatric: no emotional or psychiatric problem. Heme/Lymph: no bleeding problems, no anemia, no blood clots, no transfusions. Allergy/Immunologic: no swollen lymph nodes/glands, no IV drug abuse. Other: Additional ROS info: Except as noted in the above Review of Systems and in the History of Present Illness, all other systems have been reviewed and are negative or noncontributory. Physical Exam Vitals & Measurements HR: 76(Peripheral) RR: 16 BP: 144/80 HT: 70 in HT: 178 cm WT: 105 kg WT: 231 lb BMI: 33.14 HEENT: normal conjunctiva, sclera clear, no scleral icterus, EOM intact, PERRLA, oral mucosa moist without lesions. Neck: trachea midline, no mass, symmetric, no thyromegaly or nodules, no adenopathy Respiratory: lungs CTA, respirations non labored. Cardiovascular: regular rate and rhythm, no murmur, no pedal edema or varicosities. Gastrointestinal: soft, non distended, no tenderness, no masses, no palpable hernias, diastasis recti no, no hepatosplenomegaly; normal bs Lymphatic: no cervical adenopathy, no supraclavicular adenopathy Musculoskeletal: normal gait, digits and nails without infection, nodes, cyanosis, clubbing. Skin: no rashes, no lesions, no ulcers, no subcutaneous nodules, induration. Psychiatric/Neuro: oriented to time, place, person, judgement normal, affect appropriate for age, insight intact, no focal deficits. Tests: x-rays reviewed, review of old records completed, Assessment/Plan 1. Abnormal gallbladder ultrasound (R93.2: Abnormal findings on diagnostic imaging of liver and biliary tract) no change in size, no gb wall thickening; no symptoms; recommend repeat GB US in 6 months to document stability, f/u sooner if symptoms; call with problems/questions. Follow-up No qualifying data available Problem List/Past Medical History Ongoing Abdominal pain, periumbilical Abdominal pain, RUQ Abnormal gallbladder ultrasound BMI 33.0-33.9,adult BPH (benign prostatic hyperplasia) Cervical disc disease Diverticulosis Eczema Essential tremor Family history of prostate cancer Hypertension Kidney stones Loose stools Lumbar spondylosis Lupus Malignant melanoma of upper back Migraines Nausea Neoplasm of uncertain behavior of skin Osteoarthritis Raynaud disease Tremors of nervous system Historical BMI 30.0-30.9,adult Diverticulitis Skin melanoma Procedure/Surgical History ESWL - Extracorporeal shockwave lithotripsy for renal calculus (01/19/2022), Lithotripsy (01/19/2022), Arthroplasty of knee, Cervical discectomy, Colonoscopy, Excision of melanoma, Fusion of tarsal joints, XLIF - extreme lateral lumbar interbody fusion. Medications hydroxychloroquine 200 mg Tab, 200 mg= 1 tab(s), Oral, BID irbesartan 300 mg Tab, Oral, Daily NIFEdipine 30 mg ER Tab, 30 mg= 1 tab(s), Oral, Daily Protonix 40 mg Tab-DR, 40 mg= 1 tab(s), Oral, Daily tiZANidine 4 mg Tab, 8 mg= 2 tab(s), Oral, Bedtime Allergies penicillin (Rash) Social History Alcohol - Denies Alcohol Use, 04/15/2019 Substance Abuse - Denies Substance Abuse, 04/15/2019 Tobacco Never (less than 100 in lifetime) Tobacco Use:. Never Smokeless Tobacco Use:., 10/02/2022 Family History Hypertension: Mother, Father and Brother. Primary ma (more content not included)... Normal [facility] Comment on above: Result Comment: Elec tronically Signed By: DOREEN RIVERA, Arely Pederson\Date and Time Signed: 10/02/22 14:05 EDT RAD - Ultrasound Reporton RAD - Ultrasound Report [id number]: 127 Normal [facility] Lab Reportson 09-17-2022 Lab Reports [id number]:1 27 Normal [facility] Covid-19 PCR (CVDTBH)on 08-23 SARS-CoV-2 (COVID-19) RNA LU+probe Ql (Unsp spec) Not detected Normal NOT DETECTED [facility] Comment on above: Result Comment: This test is not yet approved or cleared by the [place] FDA. When there are no FDA-approved or cleared tests available, and other criteria are met, FDA can make tests available under an emergency access mechanism called an Emergency Use Authorization (EUA). The EUA for this test is supported by the [employer] of Health and Human Service's (HHS's) declaration that circumstances exist to justify the emergency use of in vitro diagnostics for the detection and/or diagnosis of the virus that causes COVID-19. This EUA will remain in effect (meaning this test can be used) for the duration of the COVID-19 declaration justifying emergency of IVDs, unless it is terminated or revoked by FDA (after which the test may no longer be used). When diagnostic testing is negative, the possibility of a false negative should be considered in the context of a patient's recent exposures and the presence of clinical signs and symptoms consistent with SARS-CoV-2. Performed By: #### I NSULIN #### [facility] [address] [place] [address] Dr. Carolyn King SYMPTOMATIC COVID-19 ANTIGEN on 09-11-2022 EUA Statement SEE BELOW Normal [facility] Comment on above: Result Comment: This test has not been FDA cleared or approved, but has been authorized by the FDA under an Emergency Use Authorization (EUA) for use by authorized laboratories certified under CLIA that meet the requirements to perform moderate or high complexity testing. This test has been authorized only for the detection of proteins from SARS-CoV-2, not for any other viruses or pathogens. The emergency use of this test is authorized for the duration of the declaration that circumstances exist justifying the authorization of emergency use of in vitro diagnostic tests for detection and/or diagnosis of Covid-19 under section 564(b)(1) of the Act, 21 U.S.C. 360bbb-3(b)(1), unless the declaration is terminated or authorization is revoked sooner. Performed By: #### C VDAGS #### [facility] [address] [place] [id number] Carolyn King SARS-CoV-2 (COVID-19) RNA LU+probe Ql (Unsp spec) Negative Normal NEGATIVE [facility] Comment on above: Performed By: #### C VDAGS #### [facility] [address] [place], [place] [address] FOOT RT WO CONon 09-01-[address] FOOT RT WO CON EXAMINATION: CT FOOT RT WO CON HISTORY: Idiopathic osteoarthritis COMPARISON: No relevant comparison available. TECHNIQUE: Multi-planar CT images were created without IV contrast. Dose reduction techniques were achieved by using automated exposure control and/or adjustment of mA and/or kV according to patient size and/or use of iterative reconstruction technique. FINDINGS: BONES: Talocalcaneal fusion via 2 lag screws. Medial midfoot fusion extending from base of first metatarsal into the talus; no appreciable hardware fracture or loosening. Healing of previously seen calcaneal osteotomy and lateral talocalcaneal fragments/fractures. Lucency within distal tibia from prior bone harvesting; not unexpected. SOFT TISSUES: Mild subcutaneous edema involving the dorsal lateral foot and ankle. EFFUSION: None visible. OTHER: Negative. IMPRESSION: 1. Stable surgical changes without evidence of hardware failure or change in alignment. 2. Healing of previously seen osteotomy/fracture fragments. 3. Mild subcutaneous edema. Electronically authenticated by: LAURY ZEPEDA Date: 2022-08-31 08:09 Normal [facility] US SINGLE QUAD RT UPPERon US SINGLE QUAD RT UPPER EXAMINATION: US SINGLE QUAD RT UPPER HISTORY: Cholesterolosis of gallbladder COMPARISON: Ultrasound right upper quadrant 01/05/2022 TECHNIQUE: Transabdominal evaluation of the right upper quadrant. FINDINGS: LIVER: Normal size and echotexture. Color Doppler demonstrates patent hepatic veins. PORTAL VEIN: Duplex Doppler demonstrates normal hepatopetal flow pattern with flow velocity averaging 30 cm/s. GALLBLADDER: 7 mm polyp versus stone adherent to inferior bladder wall. No gallbladder wall thickening or free fluid. BILIARY: No abnormal dilation or stones. Common bile duct diameter is within normal limits. PANCREASE: No visible mass, abnormal atrophy, or duct dilation. KIDNEY: No hydronephrosis. No visible mass or stones. Size: 9.9 x 5.0 x 4.9 cm IMPRESSION: 1. Stable 7 mm structure within gallbladder; polyp versus stone adherent to gallbladder wall. Electronically authenticated by: LAURY ZEPEDA Date: 2022-08-31 07:41 Normal [facility] POINT OF CARE GLUCOSEon 05-24 Glucose [Mass/Vol] 125 mg/dL Critically high 74-106 [facility] Comment on above: Performed By: #### I NSULIN #### [facility] [address] [place], [place] [address] Dr. Carolyn King Glucose [Mass/Vol] 105 mg/dL Normal 74-106 [facility] Comment on above: Performed By: #### I NSULIN #### [facility] [address] [place], [place] [address] Dr. Carolyn King XR FOOT RT 2Von 06-07-2022 XR FOOT RT 2V EXAM: XR FOOT RT 2V HISTORY: Pain COMPARISON: 02/14/2022. TECHNIQUE: 52 fluoroscopic images. 3 minutes 46 seconds of fluoroscopy FINDINGS: Interval revision of midfoot forefoot fusion with subtalar fusion utilizing 2 cannulated screws. Placement of a strut and screws extending from the talus into the first metatarsal IMPRESSION: Revision of fusion Electronically authenticated by: BANDAR SAENZ Date: 2022-06-07 14:29 Normal [facility] Covid-19 PCR (CVDTB)on 05-24 SARS-CoV-2 (COVID-19) RNA LU+probe Ql (Unsp spec) Not detected Normal NOT DETECTED [facility] Comment on above: Result Comment: This test is not yet approved or cleared by the [place] FDA. When there are no FDA-approved or cleared tests available, and other criteria are met, FDA can make tests available under an emergency access mechanism called an Emergency Use Authorization (EUA). The EUA for this test is supported by the [employer] of Health and Human Service's (HHS's) declaration that circumstances exist to justify the emergency use of in vitro diagnostics for the detection and/or diagnosis of the virus that causes COVID-19. This EUA will remain in effect (meaning this test can be used) for the duration of the COVID-19 declaration justifying emergency of IVDs, unless it is terminated or revoked by FDA (after which the test may no longer be used). When diagnostic testing is negative, the possibility of a false negative should be considered in the context of a patient's recent exposures and the presence of clinical signs and symptoms consistent with SARS-CoV-2. Performed By: #### I NSULIN #### [facility] [address] [place] [address] [address] Carolyn King Albumin [Mass/volume] in Ser um or PlasmaOrdered By: Hudson De Leon on 05-23-2022 Albumin [Mass/Vol] 3.9 g/dL 3.2-5.5 [facility] Automated erythrocytes count in urine sediment (number/area)Ordered By: Hudson De Leon on 05-23-2022 RBC Auto (Urine sed) [#/Area] None seen [HPF] 0-4 [facility] Automated leukocytes count i n urine sediment (number/area)Ordered By: Hudson De Leon on 05-23-2022 WBC Auto (Urine sed) [#/Area] None seen [HPF] 0-4 [facility] Basophils Auto (Bld) [#/Vol] Ordered By: Hudson De Leon on 05-23-2022 Basophils (Bld) [#/Vol] 0.0 10*3/uL 0.0-0.2 [facility] Basophils/100 WBC Auto (Bld) Ordered By: Hudson De Leon on 05-23-2022 Basophils/100 WBC (Bld) 0.6 % . [facility] Bilirubin Test strip Ql (U)O rdered By: Hudson De Leon on 05-23-2022 Bilirubin Ql (U) Negative Negative [facility] Color Auto (U)Ordered By: Maykel De Leon on 05-23-2022 Color (U) Yellow Yellow [facility] Complement C3on 05-23-2022 Complement C3 130 mg/dL Normal 82-167 [facility] Comment on above: Result Comment: Perf ormed at: - [facility] [id number] Database Architect: Derek Toscano PhD, Phone: [phone] Performed By: #### C BC, ESR, ADDONUAPLUS, CMP #### [address] #### C4, C3, CH50 #### [facility] , Complement C4on 05-23-2022 Complement C4 27 mg/dL Normal 12-38 [facility] Comment on above: Result Comment: PERF ORMED BY: [place] [address] PATHOLOGIST THERAPY TEACHER KRISTIE BAKER M.D. Performed By: #### C BC, ESR, ADDONUAPLUS, CMP #### [address] #### C4, C3, CH50 #### [facility] , Complement Total (CH50)on Complement Total (CH50) 52 Normal >41 [facility] Comment on above: Result Comment: Age Male Female 1 - 30 days Not Estab. Not Estab. 31 days - 6 months >32 >20 7 months - 17 years >39 >39 >17 years >41 >41 NOTE: The adult ( >17 years ) reference interval range is used to flag abnormals on this report. If the patient is 17 years old or younger, use the table above to determine out of range values. Performed at: - [facility] [id number] Database Architect: Derek Toscano PhD, Phone: [phone] PERFORMED BY: [place] [address] PATHOLOGIST THERAPY TEACHER KRISTIE BAKER M.D. Performed By: #### C BC, ESR, ADDONUAPLUS, CMP #### [address] #### C4, C3, CH50 #### [facility] , Complete Blood Count Auto Di ffon 05-23-2022 Basophils (Bld) [#/Vol] 0.0 10*3/uL Normal 0.0-0.2 [facility] Comment on above: Performed By: #### C BC, ESR, ADDONUAPLUS, CMP #### [place] [address] [place] #### C4, C3, CH50 #### [facility] , Basophils/100 WBC (Bld) 0.6 % Normal . [facility] Comment on above: Performed By: #### C BC, ESR, ADDONUAPLUS, CMP #### [place] [address] [place] #### C4, C3, CH50 #### [facility] , Eosinophils (Bld) [#/Vol] 0.0 10*3/uL Normal 0.0-0.45 [facility] Comment on above: Performed By: #### C BC, ESR, ADDONUAPLUS, CMP #### [place] [address] [place] #### C4, C3, CH50 #### [facility] , Eosinophils/100 WBC (Bld) 0.9 % Normal . [facility] Comment on above: Performed By: #### C BC, ESR, ADDONUAPLUS, CMP #### [place] [address] [place] #### C4, C3, CH50 #### [facility] , Erythrocyte distribution width (RBC) [Ratio] 13.4 % Normal 12.0-14.8 [facility] Comment on above: Performed By: #### C BC, ESR, ADDONUAPLUS, CMP #### [place] [address] [place] #### C4, C3, CH50 #### [facility] , Hematocrit (Bld) [Volume fraction] 44.5 % Normal 38.8-50.0 [facility] Comment on above: Performed By: #### C BC, ESR, ADDONUAPLUS, CMP #### [address] #### C4, C3, CH50 #### [facility] , Hemoglobin (Bld) [Mass/Vol] 14.9 g/dL Normal 13.0-17.0 [facility] Comment on above: Performed By: #### C BC, ESR, ADDONUAPLUS, CMP #### [place] [address] [place] #### C4, C3, CH50 #### [facility] , Lymphocytes (Bld) [#/Vol] 1.1 10*3/uL Normal 1.00-4.8 [facility] Comment on above: Performed By: #### C BC, ESR, ADDONUAPLUS, CMP #### [address] #### C4, C3, CH50 #### [facility] , Lymphocytes/100 WBC (Bld) 21.1 % Normal . [facility] Comment on above: Performed By: #### C BC, ESR, ADDONUAPLUS, CMP #### [place] [address] [place] #### C4, C3, CH50 #### [facility] , MCH (RBC) [Entitic mass] 31.2 pg Normal 27.5-35.2 [facility] Comment on above: Performed By: #### C BC, ESR, ADDONUAPLUS, CMP #### [place] [address] [place] #### C4, C3, CH50 #### [facility] , MCV (RBC) [Entitic vol] 93.3 fL Normal 83.5-101 [facility] Comment on above: Performed By: #### C BC, ESR, ADDONUAPLUS, CMP #### [place] [address] [place] #### C4, C3, CH50 #### [facility] , Mean Corpuscular HGB Conc 33.5 g/dL Normal 32.5-35.6 [facility] Comment on above: Performed By: #### C BC, ESR, ADDONUAPLUS, CMP #### [place] [address] [place] #### C4, C3, CH50 #### [facility] , Monocytes (Bld) [#/Vol] 0.5 10*3/uL Normal 0.0-0.8 [facility] Comment on above: Performed By: #### C BC, ESR, ADDONUAPLUS, CMP #### [place] [address] [place] #### C4, C3, CH50 #### [facility] , Monocytes/100 WBC (Bld) 10.3 % Normal . [facility] Comment on above: Performed By: #### C BC, ESR, ADDONUAPLUS, CMP #### [place] [address] [place] #### C4, C3, CH50 #### [facility] , Neutrophils (Bld) [#/Vol] 3.5 10*3/uL Normal 1.8-7.7 [facility] Comment on above: Performed By: #### C BC, ESR, ADDONUAPLUS, CMP #### [facility] [address] [place] [address] [place] #### C4, C3, CH50 #### [facility] , Neutrophils/100 WBC (Bld) 67.1 % Normal . [facility] Comment on above: Performed By: #### C BC, ESR, ADDONUAPLUS, CMP #### [place] [address] [place] #### C4, C3, CH50 #### [facility] , NRBC% 0.2 /100{WBC} Normal 0-0.5 [facility] Comment on above: Performed By: #### C BC, ESR, ADDONUAPLUS, CMP #### [facility] [address] [place] [address] [place] #### C4, C3, CH50 #### [facility] , Platelet mean volume (Bld) [Entitic vol] 9.4 fL Normal 6.6-10.1 [facility] Comment on above: Performed By: #### C BC, ESR, ADDONUAPLUS, CMP #### [place] [address] [place] #### C4, C3, CH50 #### [facility] , Platelets (Bld) [#/Vol] 234 10*3/uL Normal 150-450 [facility] Comment on above: Performed By: #### C BC, ESR, ADDONUAPLUS, CMP #### [facility] [address] [place] [address] [place] #### C4, C3, CH50 #### [facility] , RBC (Bld) [#/Vol] 4.77 10*6/uL Normal 3.90-5.60 [facility] Comment on above: Performed By: #### C BC, ESR, ADDONUAPLUS, CMP #### [address] #### C4, C3, CH50 #### [facility] , WBC (Bld) [#/Vol] 5.2 10*3/uL Normal 4.1-10.5 [facility] Comment on above: Performed By: #### C BC, ESR, ADDONUAPLUS, CMP #### [facility] [address] [place] [address] [place] #### C4, C3, CH50 #### [facility] , Comprehensive Metabolic Pane tanika 05-23-2022 Albumin [Mass/Vol] 3.9 g/dL Normal 3.2-5.5 [facility] Comment on above: Performed By: #### C BC, ESR, ADDONUAPLUS, CMP #### [place] [address] [place] #### C4, C3, CH50 #### [facility] , Albumin/Globulin [Mass ratio] 1.4 {ratio} Normal [facility] Comment on above: Performed By: #### C BC, ESR, ADDONUAPLUS, CMP #### [place] [address] [place] #### C4, C3, CH50 #### [facility] , ALP [Catalytic activity/Vol] 90 U/L Normal 32-92 [facility] Comment on above: Result Comment: PERF ORMED BY: [place] [address] PATHOLOGIST THERAPY TEACHER KRISTIE BAKER M.D. Performed By: #### C BC, ESR, ADDONUAPLUS, CMP #### [address] #### C4, C3, CH50 #### [facility] , ALT [Catalytic activity/Vol] 27 U/L Normal 10-60 [facility] Comment on above: Performed By: #### C BC, ESR, ADDONUAPLUS, CMP #### [address] #### C4, C3, CH50 #### [facility] , Anion gap [Moles/Vol] 12.3 mmol/L Normal 6.0-15.0 [facility] Comment on above: Performed By: #### C BC, ESR, ADDONUAPLUS, CMP #### [place] [address] [place] #### C4, C3, CH50 #### [facility] , AST [Catalytic activity/Vol] 31 U/L Normal 10-42 [facility] Comment on above: Performed By: #### C BC, ESR, ADDONUAPLUS, CMP #### [facility] [address] [place] [address] [place] #### C4, C3, CH50 #### [facility] , Bilirubin [Mass/Vol] 0.6 mg/dL Normal 0.3-1.2 [facility] Comment on above: Performed By: #### C BC, ESR, ADDONUAPLUS, CMP #### [facility] [address] [place] [address] [place] #### C4, C3, CH50 #### [facility] , Calcium [Mass/Vol] 9.1 mg/dL Normal 8.2-10.2 [facility] Comment on above: Performed By: #### C BC, ESR, ADDONUAPLUS, CMP #### [place] [address] [place] #### C4, C3, CH50 #### [facility] , Chloride [Moles/Vol] 102 mmol/L Normal 95-114 [facility] Comment on above: Performed By: #### C BC, ESR, ADDONUAPLUS, CMP #### [facility] [address] [place] [address] [place] #### C4, C3, CH50 #### [facility] , CO2 [Moles/Vol] 26.7 mmol/L Normal 22.0-30.0 [facility] Comment on above: Performed By: #### C BC, ESR, ADDONUAPLUS, CMP #### [place] [address] [place] #### C4, C3, CH50 #### [facility] , Creatinine [Mass/Vol] 0.92 mg/dL Normal 0.64-1.[address] [facility] Comment on above: Performed By: #### C BC, ESR, ADDONUAPLUS, CMP #### [facility] [address] [place] [address] [place] #### C4, C3, CH50 #### [facility] , Estimated GFR ( Jennifer > 60 [facility] Comment on above: Result Comment: GFR estimated reference range: According to KDOQI guidelines, <60 ml/min/1.73m2 is sufficient to diagnose a patient with chronic kidney disease. Performed By: #### C BC, ESR, ADDONUAPLUS, CMP #### [place] [address] [place] #### C4, C3, CH50 #### [facility] , Estimated GFR (Non- Am > 60 [facility] Comment on above: Performed By: #### C BC, ESR, ADDONUAPLUS, CMP #### [place] [address] [place] #### C4, C3, CH50 #### [facility] , Globulin (S) [Mass/Vol] 2.8 g/dL [facility] Comment on above: Performed By: #### C BC, ESR, ADDONUAPLUS, CMP #### [place] [address] [place] #### C4, C3, CH50 #### [facility] , Glucose [Mass/Vol] 75 mg/dL Normal 70-100 [facility] Comment on above: Result Comment: Trail om Glucose Reference Range is dependent on time and content of last meal. Glucose of more than 200 mg/dL in a nonstressed, ambulatory subject supports the diagnosis of Diabetes Mellitus. ADA recommended reference range Performed By: #### C BC, ESR, ADDONUAPLUS, CMP #### [place] [address] [place] #### C4, C3, CH50 #### [facility] , Potassium [Moles/Vol] 4.0 mmol/L Normal 3.5-5.[address] [facility] Comment on above: Performed By: #### C BC, ESR, ADDONUAPLUS, CMP #### [place] [address] [place] #### C4, C3, CH50 #### [facility] , Protein [Mass/Vol] 6.7 g/dL Normal 6.1-7.9 [facility] Comment on above: Performed By: #### C BC, ESR, ADDONUAPLUS, CMP #### [facility] [address] [place] [address] [place] #### C4, C3, CH50 #### [facility] , Sodium [Moles/Vol] 137 mmol/L Normal 136-146 [facility] Comment on above: Performed By: #### C BC, ESR, ADDONUAPLUS, CMP #### [address] #### C4, C3, CH50 #### [facility] , Urea nitrogen [Mass/Vol] 11 mg/dL Normal 9-23 [facility] Comment on above: Performed By: #### C BC, ESR, ADDONUAPLUS, CMP #### [place] [address] [place] #### C4, C3, CH50 #### [facility] , Creatinine and Glomerular fi ltration rate.predicted panel (S/P/Bld)Ordered By: Hudson De Leon on 05-23-2022 Creatinine [Mass/Vol] 0.92 mg/dL 0.64-1.[address] [facility] Dipstick and Microscopicon 1 07-23-2021 Appearance (U) Clear Normal Clear [facility] Comment on above: Order Comment: Name Collection Type:: Clean-Voided Midstream Performed By: #### C BC, ESR, ADDONUAPLUS, CMP #### [facility] [address] [place] [address] [place] #### C4, C3, CH50 #### [facility] , Bacteria,Urine None Seen Normal None Seen [facility] Comment on above: Order Comment: Name Collection Type:: Clean-Voided Midstream Performed By: #### C BC, ESR, ADDONUAPLUS, CMP #### [address] #### C4, C3, CH50 #### [facility] , Bilirubin,Urine Negative Normal Negative [facility] Comment on above: Order Comment: Name Collection Type:: Clean-Voided Midstream Performed By: #### C BC, ESR, ADDONUAPLUS, CMP #### [facility] [address] [place] [address] #### C4, C3, CH50 #### [facility] , Color (U) Yellow Normal Yellow [facility] Comment on above: Order Comment: Name Collection Type:: Clean-Voided Midstream Performed By: #### C BC, ESR, ADDONUAPLUS, CMP #### [address] #### C4, C3, CH50 #### [facility] , Glucose Ql (U) Normal Normal Normal [facility] Comment on above: Order Comment: Name Collection Type:: Clean-Voided Midstream Performed By: #### C BC, ESR, ADDONUAPLUS, CMP #### [address] #### C4, C3, CH50 #### [facility] , Hyaline Casts,Urine None Seen Normal 0-8 [facility] Comment on above: Order Comment: Name Collection Type:: Clean-Voided Midstream Result Comment: PERF ORMED BY: [place] [address] PATHOLOGIST THERAPY TEACHER KRISTIE BAKER M.D. Performed By: #### C BC, ESR, ADDONUAPLUS, CMP #### [address] #### C4, C3, CH50 #### [facility] , Ketones Ql (U) Negative Normal Negative [facility] Comment on above: Order Comment: Name Collection Type:: Clean-Voided Midstream Performed By: #### C BC, ESR, ADDONUAPLUS, CMP #### [address] #### C4, C3, CH50 #### [facility] , Leukocyte esterase Test strip Ql (U) Negative Normal Negative [facility] Comment on above: Order Comment: Name Collection Type:: Clean-Voided Midstream Performed By: #### C BC, ESR, ADDONUAPLUS, CMP #### [address] #### C4, C3, CH50 #### [facility] , Nitrite,Urine Negative Normal Negative [facility] Comment on above: Order Comment: Name Collection Type:: Clean-Voided Midstream Performed By: #### C BC, ESR, ADDONUAPLUS, CMP #### [address] #### C4, C3, CH50 #### [facility] , Occult Blood,Urine Negative Normal Negative [facility] Comment on above: Order Comment: Name Collection Type:: Clean-Voided Midstream Performed By: #### C BC, ESR, ADDONUAPLUS, CMP #### [address] #### C4, C3, CH50 #### [facility] , pH (U) 5.5 [pH] Normal 5.0-9.0 [facility] Comment on above: Order Comment: Name Collection Type:: Clean-Voided Midstream Performed By: #### C BC, ESR, ADDONUAPLUS, CMP #### [place] [address] [place] #### C4, C3, CH50 #### [facility] , Protein,Urine Negative Normal Negative [facility] Comment on above: Order Comment: Name Collection Type:: Clean-Voided Midstream Performed By: #### C BC, ESR, ADDONUAPLUS, CMP #### [place] [address] [place] #### C4, C3, CH50 #### [facility] , RBC,Urine None Seen Normal 0-4 [facility] Comment on above: Order Comment: Name Collection Type:: Clean-Voided Midstream Performed By: #### C BC, ESR, ADDONUAPLUS, CMP #### [facility] [address] [place] [address] [place] #### C4, C3, CH50 #### [facility] , Specificy [place],Urine 1.014 Normal 1.001-1.03 0 [facility] Comment on above: Order Comment: Name Collection Type:: Clean-Voided Midstream Performed By: #### C BC, ESR, ADDONUAPLUS, CMP #### [address] #### C4, C3, CH50 #### [facility] , Squamous Epithelial Cell,Urine None Seen Normal 0-2 [facility] Comment on above: Order Comment: Name Collection Type:: Clean-Voided Midstream Performed By: #### C BC, ESR, ADDONUAPLUS, CMP #### [address] #### C4, C3, CH50 #### [facility] , Urobilinogen,Urine Normal Normal Normal [facility] Comment on above: Order Comment: Name Collection Type:: Clean-Voided Midstream Performed By: #### C BC, ESR, ADDONUAPLUS, CMP #### [place] [address] [place] #### C4, C3, CH50 #### [facility] , WBC,Urine None Seen Normal 0-4 [facility] Comment on above: Order Comment: Name Collection Type:: Clean-Voided Midstream Performed By: #### C BC, ESR, ADDONUAPLUS, CMP #### [address] [place] [address] [place] #### C4, C3, CH50 #### [facility] , Eosinophils Auto (Bld) [#/Vo l]Ordered By: Hudson DeL eon on 05-23-2022 Eosinophils (Bld) [#/Vol] 0.0 10*3/uL 0.0-0.45 [facility] Eosinophils/100 WBC Auto (Bl d)Ordered By: Hudson De Leon on 05-23-2022 Eosinophils/100 WBC (Bld) 0.9 % . [facility] Erythrocyte Sedimentation Ra natan 05-23-2022 ESR (Bld) [Velocity] 6 mm/h Normal 0-19 [facility] Comment on above: Result Comment: PERF ORMED BY: [place] [address] PATHOLOGIST THERAPY TEACHER KRISTIE BAKER M.D. Performed By: #### C BC, ESR, ADDONUAPLUS, CMP #### [facility] [address] [place] [address] #### C4, C3, CH50 #### [facility] , Erythrocyte distribution wid th Auto (RBC) [Ratio]Ordered By: Hudson De Leon on 05-23-2022 Erythrocyte distribution width (RBC) [Ratio] 13.4 % 12.0-14.8 [facility] Erythrocyte sedimentation ra te by Photometric methodOrdered By: Hudson De Leon on 05-23-2022 ESR Photometric method (Bld) [Velocity] 6 mm/hr 0- [facility] Estimated glomerular filtrat ion rate (GFR) non- AmericanOrdered By: Hudson De Leon on 05-23-2022 GFR/1.73 sq M.predicted among non-blacks MDRD (S/P/Bld) [Vol rate/Area] > 60 mL/Min [facility] Globulin Calc (S) [Mass/Vol] Ordered By: Hudson De Leon on 05-23-2022 Globulin (S) [Mass/Vol] 2.8 g/dL [facility] Hematocrit Auto (Bld) [Volum e fraction]Ordered By: Hudson De Leon on 05-23-2022 Hematocrit (Bld) [Volume fraction] 44.5 % 38.8-50.0 [facility] Hemoglobin [Mass/volume] in BloodOrdered By: Hudson De Leon on 05-23-2022 Hemoglobin (Bld) [Mass/Vol] 14.9 g/dL 13.0-17.0 [facility] Ketones Auto test strip (U) [Mass/Vol]Ordered By: Hudson De Leon on 05-23-2022 Ketones (U) [Mass/Vol] Negative Negative Fi [facility] - UrinalysisOrder ed By: Hudson De Leon on 05-23-2022 Hyaline casts LM Ql (Urine sed) None seen [LPF] 0-8 [facility] Leukocytes [#/volume] correc leah for nucleated erythrocytes in Blood by Automated counOrdered By: Hudson De Leon on 05-23-2022 WBC corrected for nucl RBC Auto (Bld) [#/Vol] 5.2 10*3/uL 4.1-10.5 [facility] Lymphocytes Auto (Bld) [#/Vo l]Ordered By: Hudson De Leon on 05-23-2022 Lymphocytes (Bld) [#/Vol] 1.1 10*3/uL 1.00-4.8 [facility] Lymphocytes/100 WBC Auto (Bl d)Ordered By: Hudson De Leon on 05-23-2022 Lymphocytes/100 WBC (Bld) 21.1 % . [facility] MCH Auto (RBC) [Entitic mass ]Ordered By: Hudson De Leon on 05-23-2022 MCH (RBC) [Entitic mass] 31.2 pg 27.5-35.2 [facility] MCHC Auto (RBC) [Mass/Vol]Or dered By: Hudson De Leon on 05-23-2022 MCHC (RBC) [Mass/Vol] 33.5 g/dL 32.5-35.[address] [facility] MCV Auto (RBC) [Entitic vol] Ordered By: Hudson De Leon on 05-23-2022 MCV (RBC) [Entitic vol] 93.3 fL 83.5-101 [facility] Monocytes Auto (Bld) [#/Vol] Ordered By: Hudson De Leon on 05-23-2022 Monocytes (Bld) [#/Vol] 0.5 10*3/uL 0.0-0.8 [facility] Monocytes/100 WBC Auto (Bld) Ordered By: Hudson De Leon on 05-23-2022 Monocytes/100 WBC (Bld) 10.3 % . [facility] Neutrophils Auto (Bld) [#/Vo l]Ordered By: Hduson De Leon on 05-23-2022 Neutrophils (Bld) [#/Vol] 3.5 10*3/uL 1.8-7.7 [facility] Neutrophils/100 WBC Auto (Bl d)Ordered By: Hudson De Leon on 05-23-2022 Neutrophils/100 WBC (Bld) 67.1 % . [facility] Nitrite Test strip Ql (U)Ord ered By: Hudson De Leon on 05-23-2022 Nitrite Ql (U) Negative Negative [facility] No Panel InformationOrdered By: Hudson De Leon on 05-23-2022 Estimated GFR () > 60 mL/Min [facility] Comment on above: GFR estimated refere nce range: According to KDOQI guidelines, <60 ml/min/1.73m2 is sufficient to diagnose a patient with chronic kidney disease. Pharmacy Creatinine Clearance (Chem N/A [facility] Nucleated erythrocytes [Pres ence] in Blood by Automated countOrdered By: Hudson De Leon on 05-23-2022 Nucleated RBC Auto Ql (Bld) 0.2 /100{WBC} 0-0.5 [facility] Platelet mean volume Auto (B ld) [Entitic vol]Ordered By: Hudson De Leon on 05-23-2022 Platelet mean volume (Bld) [Entitic vol] 9.4 fL 6.6-10.1 [facility] Platelets Auto (Bld) [#/Vol] Ordered By: Hudson De Leon on 05-23-2022 Platelets (Bld) [#/Vol] 234 10*3/uL 150-450 [facility] Protein Auto test strip (U) [Mass/Vol]Ordered By: Hudson De Leon on 05-23-2022 Protein (U) [Mass/Vol] Negative [facility] Protein [Mass/volume] in Ser um or PlasmaOrdered By: Hudson De Leon on 05-23-2022 Protein [Mass/Vol] 6.7 g/dL 6.1-7.9 [facility] RBC Auto (Bld) [#/Vol]Ordere d By: Hudson De Leon on 05-23-2022 RBC (Bld) [#/Vol] 4.77 10*6/uL 3.90-5.60 [facility] Serum or plasma alanine gates otransferase measurement without P-5'-P (enzymatic activiOrdered By: Hudson De Leon on 05-23-2022 ALT No additional P-5'-P [Catalytic activity/Vol] 27 U/L 1060 [facility] Serum or plasma albumin/glob ulin mass ratioOrdered By: Hudson De Leon on 05-23-2022 Albumin/Globulin [Mass ratio] 1.4 {ratio} [facility] Serum or plasma alkaline amanda sphatase measurement (enzymatic activity/volume)Ordered By: Hudson De Leon on 05-23-2022 ALP [Catalytic activity/Vol] 90 U/L 32-92 [facility] Serum or plasma anion gap de terminationOrdered By: Hudson De Leon on 05-23-2022 Anion gap [Moles/Vol] 12.3 mmol/L 6.0-15.0 [facility] Serum or plasma aspartate am inotransferase measurement (enzymatic activity/volume)Ordered By: Hudson De Leon on 05-23-2022 AST [Catalytic activity/Vol] 31 U/L 10-42 [facility] Serum or plasma calcium karl urement (mass/volume)Ordered By: Hudson De Leon on 05-23-2022 Calcium [Mass/Vol] 9.1 mg/dL 8.2-10.2 [facility] Serum or plasma chloride reba surement (moles/volume)Ordered By: Hudson De Leon on 05-23-2022 Chloride [Moles/Vol] 102 mmol/L 95-114 [facility] Serum or plasma glucose karl urement (mass/volume)Ordered By: Hudson De Leon on 05-23-2022 Glucose [Mass/Vol] 75 mg/dL 70-100 [facility] Comment on above: ADA recommended refe rence rangeRandom Glucose Reference Range is dependent on time and content of last meal. Glucose of more than 200 mg/dL in a nonstressed, ambulatory subject supports the diagnosis of Diabetes Mellitus. Serum or plasma potassium me asurement (moles/volume)Ordered By: Hudson De Leon on 05-23-2022 Potassium [Moles/Vol] 4.0 mmol/L 3.5-5.[address] [facility] Serum or plasma sodium measu rement (moles/volume)Ordered By: Hudson De Leon on 05-23-2022 Sodium [Moles/Vol] 137 mmol/L 136-146 [facility] Serum or plasma total biliru bin measurement (mass/volume)Ordered By: Hudson De Leon on 05-23-2022 Bilirubin [Mass/Vol] 0.6 mg/dL 0.3-1.2 [facility] Serum or plasma total carbon dioxide measurement (moles/volume)Ordered By: Hudson De Leon on 05-23-2022 CO2 [Moles/Vol] 26.7 mmol/L 22.0-30.0 [facility] Serum or plasma urea nitroge n measurement (mass/volume)Ordered By: Hudson De Leon on 05-23-2022 Urea nitrogen [Mass/Vol] 11 mg/dL 9-23 [facility] Specific gravity Auto test s trip (U) [Rel density]Ordered By: Hudson De Leon on 05-23-2022 Specific gravity (U) [Rel density] 1.014 1.001-1.03 0 [facility] Squamous epithelial cells de tection in urine sediment by light microscopyOrdered By: Hudson De Leon on 05-23-2022 Epithelial cells.squamous LM Ql (Urine sed) None seen [HPF] 0-2 [facility] Urine bacteria detection by automated methodOrdered By: Hudson De Leon on 05-23-2022 Bacteria Auto Ql (U) None seen None Seen [facility] Urine clarity by refractomet ry automatedOrdered By: Hudson De Leon on 05-23-2022 Clarity Refractometry automated (U) Clear Clear [facility] Urine glucose measurement by automated test strip (mass/volume)Ordered By: Hudson Haley on 05-23-2022 Glucose Auto test strip (U) [Mass/Vol] Normal mg/dL Normal [facility] Urine hemoglobin detection b y automated test stripOrdered By: Hudson Haley on 05-23-2022 Hemoglobin Auto test strip Ql (U) Negative Negative [facility] Urine leukocyte esterase det ection by automated test stripOrdered By: Hudson Catherinerow on 05-23-2022 Leukocyte esterase Auto test strip Ql (U) Negative Negative [facility] Urobilinogen Auto test strip (U) [Mass/Vol]Ordered By: Hudson Haley on 05-23-2022 Urobilinogen (U) [Mass/Vol] Normal mg/dL Normal [facility] WBC Auto (Bld) [#/Vol]Ordere d By: Hudson Catherinerow on 05-23-2022 WBC (Bld) [#/Vol] 5.2 10*3/uL 4.1-10.5 [facility] pH Auto test strip (U)Ordere d By: Hudson Haley on 05-23-2022 pH (U) 5.5 [pH] 5.0-9.0 [facility] BN SPINE, CERVICAL, 2 OR 3 V IEWSon 05-02-2022 BN SPINE, CERVICAL, 2 OR 3 VIEWS Patient Name: JAY CARR STUDY: SPINE, CERVICAL, 2 OR 3 VIEWS; 05/02/2022 9:46 am INDICATION: cervical post op 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 COMPARISON: 08/03/2021 ACCESSION NUMBER(S): [id number] ORDERING CLINICIAN: KENTON LAWSON FINDINGS: Two views of the cervical spine. Patient is status post anterior cervical discectomy and fusion from C5-C7. No hardware complication. No acute fracture. No focal subluxation. Mild multilevel degenerative changes. IMPRESSION: Postsurgical changes status post ACDF from C5-C7. No hardware complication. Mild multilevel spondylosis. Electronically signed by: FRANCISCO FOLEY MD [facility] BN SPINE, LUMBOSACRAL; 2 OR 3 VIEWSon 05-02-2022 BN SPINE, LUMBOSACRAL; 2 OR 3 VIEWS Patient Name: JAY CARR STUDY: SPINE, LUMBOSACRAL; 2 OR 3 VIEWS; 05/02/2022 9:46 am INDICATION: AP/LAT M54.50: Lumbar back pain M48.062: Lumbar stenosis with neurogenic claudication. COMPARISON: 01/29/2022 ACCESSION NUMBER(S): [id number] ORDERING CLINICIAN: KENTON LAWSON FINDINGS: Two views of the lumbosacral spine. Status post posterior fusion and discectomy from L3-L5. No hardware complication. There is retrolisthesis of L2-L3 which is unchanged from prior. Moderate upper lumbar spondylosis with discogenic and facet degenerative changes. The soft tissues are unremarkable. IMPRESSION: Postsurgical changes as was discectomy and posterior fusion from L3-L5. No hardware complication. Mild retrolisthesis of L2-L3, unchanged from prior. Moderate multilevel spondylosis. Electronically signed by: FRANCISCO FOLEY MD [facility] Established Visit (Orthopaed ic Surgery)on 05-02-2022 Established Visit (Orthopaedic Surgery) Diagnoses/Problems Assessed Cervical disc disorder with myelopathy (722.71) (M50.00) Lumbar stenosis with neurogenic claudication (724.03) (M48.062) Orders Cervical disc disorder with myelopathy Xray Cervical Spine 2 or 3 View; Status:Resulted - Preliminary; Done: 02May2022 09:46AM Radiologist to Determine Optimal Study : Y What are the patient's signs and symptoms? : cervical post op Cervical disc disorder with myelopathy, Lumbar stenosis with neurogenic claudication Start: Diclofenac Sodium 1 % External Gel; APPLY SPARINGLY TO AFFECTED AREA(S) ONCE DAILY Patient Discussion/Summary XR: Images of cervical and lumbar spine reviewed and discussed with patient today and reveal instrumentation and graft in appropriate position. Moving forward, I reassured the patient that I feel he is doing very well following his cervical and lumbar procedures. We discussed that some degree of neck and low back discomfort following the surgeries is not uncommon and that he should continue to do the stretches and exercises that he has been prescribed by physical therapy to help minimize this. I encouraged patient to resume taking tizanidine as this did provide good relief of these pains in the past. I also instructed the patient to use OTC lidocaine patches and prescribed 1% diclofenac gel to see if this provides any significant relief of his neck and low back pains. We discussed that it is not uncommon that his left lower extremity continues to be more bothersome as we performed a left-sided approach for his XLIF. I also reassured the patient that numbness is typically the last symptom to resolve and that we have up until 2 years postoperatively for this to totally resolve. He does have signs of peripheral nerve compression, right carpal tunnel and left cubital tunnel. I did offer the patient a work-up for this, but he declined at this time and states that he does not feel it is bothersome enough to warrant work-up and treatment. The patient will follow up with our office in September next year. I did encourage him to call our office in the meantime with any new or worsening symptoms. The patient was agreeable with the above plan and was appreciative of the care provided today. This note was dictated using speech recognition software and was not corrected for spelling or grammatical errors Chief Complaint FUV cervical and lumbar surgery History of Present Illness Jay is a pleasant 62-year-old eipup-mtez-xlsomsnl male who presents today with his for follow-up visit regarding cervical and lumbar surgeries. Patient is s/p L3-4, L4-5 XLIF with L3-5 posterior spinal fusion via L3-5 percutaneous pedicle screw placement on 09/26/2021. He is also s/p C5-6, C6-7 ACDF on 06/21/2021. Both surgeries were performed by Dr. Richardson. In regards to his low back, he is still experiencing some mild numbness/tingling in his left lower extremity but states that this is markedly improved from his preoperative state. His right lower extremity is now symptom-free. He is experiencing some mild incisional back pain. He is also experiencing mild neck pain in a trapezial distribution. He endorses numbness/tingling in his third and fourth digits bilaterally but states that this is markedly improved from before his cervical surgery. He does endorse some difficulty sleeping secondary to his pain and the numbness/tingling in his third and fourth digits. He denies bowel/bladder incontinence or saddle anesthesia. Denies dropping items from his hands or difficulty with fine motor skills. Denies issues with balance/gait/coordinatio n or dragging/tripping over his feet. He does state that he will occasionally feel weak in his right leg but that this is intermittent, denies any falls. He is walking distances without issue. He continues to do his physical therapy stretches and exercises at home twice daily. He is no longer taking tizanidine and is using Tylenol as needed. ROS: All other systems have been reviewed and are negative except as previously noted in history of present illness. On exam, his cervical and lumbar incisions are well-healed without drainage or signs of infection. He walks with a normal gait in an upright position without assistive device. He has 5/5 strength in all 4 extremities. He is neurologically intact, sensation to light touch intact and equal bilaterally. He has a positive left-sided cubital tunnel Tinel's, negative left-sided carpal Tinel's and Phalen's. Positive right-sided carpal tunnel Tinel's and Phalen's. XR: Images of cervical and lumbar spine reviewed and discussed with patient today and reveal instrumentation and graft in appropriate position. Moving forward, I reassured the patient that I feel he is doing very well following his cervical and lumbar procedures. We discussed that some degree of neck and low back discomfort following the surgeries is not uncommon and that he should continue to do the stretches and exercises that he has been prescribed by phys (more content not included)... Normal [facility] Radiologyon 05-02-2022 XR Cervical spine 3 Views Normal [facility] DO Work Phone: XR Lumbar spine AP and Lateral Normal [facility] DO Work Phone: INSULINon 03-29-2022 Insulin 14.5 uIU/mL Normal 2.6-24.9 [facility] Comment on above: Performed By: #### I NSULIN #### [facility] [address] [address] [address] Carolyn King CBC AUTO DIFFon 03-28-2022 BASO # 0.0 103/ul Normal 0.0-0.1 [facility] Comment on above: Performed By: #### C BC #### [facility] [address] [address] [address] Carolyn King Basophils/100 WBC (Bld) 0.6 % Normal 0.2-2.0 [facility] Comment on above: Performed By: #### C BC #### [facility] [address] [place] [address] Dr. Carolyn King EO # 0.1 103/ul Normal 0.0-0.7 [facility] Comment on above: Performed By: #### C BC #### [facility] [address] [place] [address] Dr. Carolyn King Eosinophils/100 WBC (Bld) 1.6 % Normal 0.9-7.0 [facility] Comment on above: Performed By: #### C BC #### [facility] [address] [place] [address] Dr. Carolyn King Erythrocyte distribution width (RBC) [Ratio] 13.2 % Normal 11.0-15.0 [facility] Comment on above: Performed By: #### C BC #### [facility] [address] [place] [address] Dr. Carolyn King Hematocrit (Bld) [Volume fraction] 44.5 % Normal 42.0-54.0 [facility] Comment on above: Performed By: #### C BC #### [facility] [address] [place] [address] Dr. Carolyn King Hemoglobin (Bld) [Mass/Vol] 15.0 g/dL Normal 14.0-18.0 [facility] Comment on above: Performed By: #### C BC #### [facility] [address] [place] [address] Dr. Carolyn King IG # 0.01 10e3/ul Normal 0.00-0.03 [facility] Comment on above: Performed By: #### C BC #### [facility] [address] [place] [address] Dr. Carolyn King IG % 0.2 % Normal 0.0-0.5 [facility] Comment on above: Performed By: #### C BC #### [facility] [address] [place] [address] Dr. Carolyn King LYMPH # 1.0 103/ul Critically low 1.2-3.8 [facility] Comment on above: Performed By: #### C BC #### [facility] [address] [place] [address] Dr. Carolyn King Lymphocytes/100 WBC (Bld) 15.8 % Critically low 20.5-60.0 [facility] Comment on above: Performed By: #### C BC #### [facility] [address] [place] [address] Dr. Carolyn King MANUAL DIFF REQ NO Normal [facility] Comment on above: Performed By: #### C BC #### [facility] [address] [place] [address] Dr. Carolyn King MCH (RBC) [Entitic mass] 31.1 pg Normal 25.9-34.0 [facility] Comment on above: Performed By: #### C BC #### [facility] [address] [place] [address] Dr. Carolyn King MCHC (RBC) [Mass/Vol] 33.7 g/dL Normal 29.9-35.2 [facility] Comment on above: Performed By: #### C BC #### [facility] [address] [place] [address] Dr. Carolyn King MCV (RBC) [Entitic vol] 92.3 fL Normal 80.0-94.0 [facility] Comment on above: Performed By: #### C BC #### [facility] [address] [place] [address] Dr. Carolyn King MONO # 0.7 103/ul Normal 0.3-0.8 [facility] Comment on above: Performed By: #### C BC #### [facility] [address] [place] [address] Dr. Carolyn King Monocytes/100 WBC (Bld) 10.7 % Normal 1.7-12.0 [facility] Comment on above: Performed By: #### C BC #### [facility] [address] [place] [address] Dr. Carolyn King NEUT # 4.4 103/ul Normal 1.4-6.5 [facility] Comment on above: Performed By: #### C BC #### [facility] [address] [address] [address] Carolyn King Neutrophils/100 WBC (Bld) 71.1 % Normal 43.0-75.0 [facility] Comment on above: Performed By: #### C BC #### [facility] [address] [address] [address] Carolyn King Platelet mean volume (Bld) [Entitic vol] 10.2 fL Normal 9.5-13.5 [facility] Comment on above: Performed By: #### C BC #### [facility] [address] [address] [address] Carolyn King PLT 242 103/ul Normal 150-450 [facility] Comment on above: Performed By: #### C BC #### [facility] [address] [place] [address] Dr. Carolyn King RBC 4.82 106/ul Normal 4.70-6.10 [facility] Comment on above: Performed By: #### C BC #### [facility] [address] [place] [address] Dr. Carolyn King WBC 6.2 103/ul Normal 4.0-11.0 [facility] Comment on above: Performed By: #### C BC #### [facility] [address] [place] [address] Dr. Carolyn King FREE THYROXINE INDEX T7on FTI 2.55 Normal 1.30-4.50 [facility] Comment on above: Performed By: #### U ALLEN, TSH, T7, LIPID, CMP #### [facility] [address] [place] [address] Dr. Carolyn King T3U 30.0 % Critically low 33.0-40.0 [facility] Comment on above: Performed By: #### U ALLEN, TSH, T7, LIPID, CMP #### [facility] [address] [place] [address] Dr. Carolyn King T4 [Mass/Vol] 8.50 ug/dL Normal 4.50-12.10 [facility] Comment on above: Performed By: #### U ALLEN, TSH, T7, LIPID, CMP #### [facility] [address] [address] [address] Carolyn King GLYCOHEMOGLOBIN A1Con 2021 ADA RECOMMENDATION SEE BELOW Normal [facility] Comment on above: Result Comment: ADA RECOMMENDED LIMIT 4.0 - 6.0 ADA THERAPEUTIC TARGET < 7.0 ACTION SUGGESTED > 7.0 Performed By: #### A 1C #### [facility] [address] [address] [address] Carolyn King Glucose [Mass/Vol] 103 mg/dL Normal 74-106 [facility] Comment on above: Performed By: #### A 1C #### [facility] [address] [place] [address] Dr. Carolyn King Performed By: #### U ALLEN, TSH, T7, LIPID, CMP #### [facility] [address] [place] [address] Dr. Carolyn King HbA1c (Bld) [Mass fraction] 5.2 % Normal 4.5-6.2 [facility] Comment on above: Performed By: #### A 1C #### [facility] [address] [place] [address] Dr. Carolyn King LIPID PROFILEon 03-28-2022 CHOL-HDL RATIO NORM SEE BELOW Normal [facility] Comment on above: Result Comment: 3.3 - 4.4 LOW RISK 4.4 - 7.1 AVERAGE RISK 7.1 - 11.0 MODERATE RISK >11.0 HIGH RISK Performed By: #### U ALLEN, TSH, T7, LIPID, CMP #### [facility] [address] [place] [address] Dr. Carolyn King Cholesterol [Mass/Vol] 157 mg/dL Normal <=200 [facility] Comment on above: Performed By: #### U ALLEN, TSH, T7, LIPID, CMP #### [facility] [address] [place] [address] Dr. Carolyn King Cholesterol in HDL [Mass/Vol] 49 mg/dL Normal 40-60 [facility] Comment on above: Performed By: #### U ALLEN, TSH, T7, LIPID, CMP #### [facility] [address] [address] [address] Carolyn King Cholesterol in LDL [Mass/Vol] 85.6 mg/dL Normal [facility] Comment on above: Performed By: #### U ALLEN, TSH, T7, LIPID, CMP #### [facility] [address] [address] [address] Carolyn King Cholesterol.total/Chol esterol in HDL [Mass ratio] 3.2 {ratio} Normal [facility] Comment on above: Performed By: #### U ALLEN, TSH, T7, LIPID, CMP #### [facility] [address] [address] [address] Carolyn King HDL NORMAL > or = 60 mg/dl - LO W CARDIOVASCULAR RISK <40 mg/dl - HIGH CARDIOVASCULAR RISK Normal [facility] Comment on above: Performed By: #### U ALLEN, TSH, T7, LIPID, CMP #### [facility] [address] [address] [address] Carolyn King LDL CALC NORMAL SEE BELOW Normal [facility] Comment on above: Result Comment: <100 mg/dl OPTIMAL 100 - 129 mg/dl NEAR OR ABOVE OPTIMAL 130 - 159 mg/dl BORDERLINE HIGH 160 - 189 mg/dl HIGH >190 mg/dl VERY HIGH Performed By: #### U ALLEN, TSH, T7, LIPID, CMP #### [facility] [address] [address] [address] Carolyn King Triglyceride [Mass/Vol] 112 mg/dL Normal <=150 [facility] Comment on above: Performed By: #### U ALLEN, TSH, T7, LIPID, CMP #### [facility] [address] [address] [address] Carolyn King VLDL CALC 22.4 mg/dL Normal [facility] Comment on above: Performed By: #### U ALLEN, TSH, T7, LIPID, CMP #### [facility] [address] [address] [address] Carolyn King PROF 14(COMP METB)on 022 Albumin [Mass/Vol] 3.9 g/dL Normal 3.4-5.0 [facility] Comment on above: Performed By: #### U ALLEN, TSH, T7, LIPID, CMP #### [facility] [address] [address] [address] Carolyn King Albumin/Globulin [Mass ratio] 1.1 {ratio} Normal [facility] Comment on above: Performed By: #### U ALLEN, TSH, T7, LIPID, CMP #### [facility] [address] [address] [address] Carolyn King ALP [Catalytic activity/Vol] 108 U/L Normal 46-116 [facility] Comment on above: Performed By: #### U ALLEN, TSH, T7, LIPID, CMP #### [facility] [address] [place] [address] Dr. Carolyn King ALT [Catalytic activity/Vol] 28 U/L Normal 16-63 [facility] Comment on above: Performed By: #### U ALLEN, TSH, T7, LIPID, CMP #### [facility] [address] [place] [address] Dr. Carolyn King Anion gap [Moles/Vol] 6.6 mmol/L Normal [facility] Comment on above: Performed By: #### U ALLEN, TSH, T7, LIPID, CMP #### [facility] [address] [place] [address] Dr. Carolyn King AST [Catalytic activity/Vol] 22 U/L Normal 15-37 [facility] Comment on above: Performed By: #### U ALLEN, TSH, T7, LIPID, CMP #### [facility] [address] [address] [address] Carolyn King Bilirubin [Mass/Vol] 0.6 mg/dL Normal 0.2-1.0 [facility] Comment on above: Performed By: #### U ALLEN, TSH, T7, LIPID, CMP #### [facility] [address] [place] [address] Dr. Carolyn King Calcium [Mass/Vol] 8.7 mg/dL Normal 8.5-10.1 [facility] Comment on above: Performed By: #### U ALLEN, TSH, T7, LIPID, CMP #### [facility] [address] [address] [address] Carolyn King Chloride [Moles/Vol] 105 mmol/L Normal 98-107 [facility] Comment on above: Performed By: #### U ALLEN, TSH, T7, LIPID, CMP #### [facility] [address] [address] [address] Carolyn King CO2 [Moles/Vol] 30.6 mmol/L Normal 21.0-32.0 [facility] Comment on above: Performed By: #### U ALLEN, TSH, T7, LIPID, CMP #### [facility] [address] [address] [address] Carolyn King Creatinine [Mass/Vol] 0.96 mg/dL Normal 0.70-1.30 [facility] Comment on above: Performed By: #### U ALLEN, TSH, T7, LIPID, CMP #### [facility] [address] [address] [address] Carolyn King EGFR-AF NIGERIEN >60 Normal >=60 [facility] Comment on above: Performed By: #### U ALLEN, TSH, T7, LIPID, CMP #### [facility] [address] [address] [address] Carolyn King EGFR-NON AF NIGERIEN >60 Normal >=60 [facility] Comment on above: Performed By: #### U ALLEN, TSH, T7, LIPID, CMP #### [facility] [address] [address] [address] Carolyn King Globulin (S) [Mass/Vol] 3.5 g/dL Normal [facility] Comment on above: Performed By: #### U ALLEN, TSH, T7, LIPID, CMP #### [facility] [address] [address] [address] Carolyn King Potassium [Moles/Vol] 4.2 mmol/L Normal 3.5-5.1 [facility] Comment on above: Performed By: #### U ALLEN, TSH, T7, LIPID, CMP #### [facility] [address] [address] [address] Carolyn King Protein [Mass/Vol] 7.4 g/dL Normal 6.4-8.2 [facility] Comment on above: Performed By: #### U ALLEN, TSH, T7, LIPID, CMP #### [facility] [address] [address] [address] Carolyn King Sodium [Moles/Vol] 138 mmol/L Normal 136-145 [facility] Comment on above: Performed By: #### U ALLEN, TSH, T7, LIPID, CMP #### [facility] [address] [address] [address] Carolyn King Urea nitrogen [Mass/Vol] 16.0 mg/dL Normal 7.0-18.0 [facility] Comment on above: Performed By: #### U ALLEN, TSH, T7, LIPID, CMP #### [facility] [address] [address] [address] Carolyn King Urea nitrogen/Creatinine [Mass ratio] 16.7 mg/mg Normal [facility] Comment on above: Performed By: #### U ALLEN, TSH, T7, LIPID, CMP #### [facility] [address] [address] [address] Carolyn King TSHon 03-28-2022 TSH 1.986 uIU/mL Normal 0.358-3.74 0 [facility] Comment on above: Performed By: #### U ALLEN, TSH, T7, LIPID, CMP #### [facility] [address] [address] [address] Carolyn King URIC ACID SERUMon 03-28-2022 Urate [Mass/Vol] 5.5 mg/dL Normal 3.5-7.2 [facility] Comment on above: Performed By: #### U ALLEN, TSH, T7, LIPID, CMP #### [facility] [address] [address] [address] Carolyn King Ammonium urate crystals dete ction in stone by infrared spectroscopyOrdered By: Shun Machado on 02-15-2022 Ammonium urate crystals Infrared spectroscopy Ql (Stone) N/A [facility] Basophils Auto (Bld) [#/Vol] Ordered By: Steve Pina on 08-25-2022 Basophils (Bld) [#/Vol] 0.0 10*3/uL 0.0-0.2 [facility] Basophils/100 WBC Auto (Bld) Ordered By: Steve Pina on 02-15-2022 Basophils/100 WBC (Bld) 0.9 % . [facility] Blood hemoglobin measurement (mass/volume)Ordered By: Steve Pina on 02-15-2022 Hemoglobin (Bld) [Mass/Vol] 14.2 g/dL 13.0-17.0 [facility] Blood leukocytes automated c ount (number/volume)Ordered By: Steve Pina on 02-15-2022 WBC (Bld) [#/Vol] 4.5 10*3/uL 4.5-11.0 [facility] Calcium bilirubinate measure mentOrdered By: Shun Machado on 02-15-2022 Calcium bilirubinate (Stone) [Mass fraction] N/A [facility] Calcium carbonate measuremen tOrdered By: Shun Machado on 02-15-2022 Calcium carbonate (Stone) [Mass fraction] N/A [facility] Calcium hydrogen phosphate d ihydrate/Total in StoneOrdered By: Shun Machado on 02-15-2022 Calcium hydrogen phosphate dihydrate (Stone) [Mass fraction] N/A [facility] Calcium oxalate dihydrate cr ystals detection in stone by infrared spectroscopyOrdered By: Shun Machado on 02-15-2022 Calcium oxalate dihydrate crystals Infrared spectroscopy Ql (Stone) 10 % . [facility] Calcium oxalate monohydrate/ Total in StoneOrdered By: Shun Machado on 02-15-2022 Calcium oxalate monohydrate (Stone) [Mass fraction] 90 % . [facility] Calcium phosphate measuremen tOrdered By: Shun Machado on 02-15-2022 Calcium phosphate (Stone) [Mass fraction] N/A [facility] Calculus analysis interpreta tion in stoneOrdered By: Shun Machado on 02-15-2022 Calculus analysis [Interp] N/A [facility] Calculus analysis [Interp] See comment . [facility] Comment on above: Physician questions regarding Calculi Analysis contact [employer] at: [phone]. Calculi report will follow via computer, mail or senior underwriting assistant delivery. Calculus analysis with calcu iggy photography interpretation in stoneOrdered By: Shun Machado on 02-15-2022 Calculus analysis with calculus photography [Interp] See comment . [facility] Comment on above: Photograph will foll ow under a separate cover Cellular material measuremen t in stone by estimated (mass/mass)Ordered By: Shun Machado on 02-15-2022 Cellular material Est (Stone) [Mass/Mass] N/A [facility] Cholesterol/Total in StoneOr dered By: Shun Machado on 02-15-2022 Cholesterol (Stone) [Mass fraction] N/A [facility] Composition of stoneOrdered By: Shun Machado on 02-15-2022 Composition Nom (Stone) See comment . [facility] Comment on above: Percentage (Represen ts the % composition) Creatinine and Glomerular fi ltration rate.predicted panel (S/P/Bld)Ordered By: Steve Pina on 02-15-2022 Creatinine [Mass/Vol] 0.96 mg/dL 0.64-1.[address] [facility] Cystine measurementOrdered B y: Shun Machado on 02-15-2022 Cystine (Unsp spec) [Moles/Vol] N/A [facility] Determination of color of ca lculusOrdered By: Shun Machado on 02-15-2022 Color (Stone) Brown . [facility] Eosinophils Auto (Bld) [#/Vo l]Ordered By: Steve Pina on 02-15-2022 Eosinophils (Bld) [#/Vol] 0.1 10*3/uL 0.0-0.45 [facility] Eosinophils/100 WBC Auto (Bl d)Ordered By: Steve Pina on 02-15-2022 Eosinophils/100 WBC (Bld) 2.7 % . [facility] Erythrocyte distribution wid th Auto (RBC) [Ratio]Ordered By: Steve Pina on 02-15-2022 Erythrocyte distribution width (RBC) [Ratio] 14.0 % 12.0-14.8 [facility] Estimated glomerular filtrat ion rate (GFR) non- AmericanOrdered By: Steve Pina on 02-15-2022 GFR/1.73 sq M.predicted among non-blacks MDRD (S/P/Bld) [Vol rate/Area] > 60 mL/Min [facility] Hematocrit Auto (Bld) [Volum e fraction]Ordered By: Steve Pina on 02-15-2022 Hematocrit (Bld) [Volume fraction] 42.2 % 38.8-50.0 [facility] Hydroxyapatite [Energy Diffe rence] in 24 hour UrineOrdered By: Shun Machado on 02-15-2022 Hydroxyapatite (24H U) [Energy diff] N/A [facility] Laboratory - Hematology and Cell countsOrdered By: Steve Pina on 02-15-2022 Nucleated RBC/100 WBC (Bld) [Ratio] 0.0 % 0-0.5 [facility] Lymphocytes Auto (Bld) [#/Vo l]Ordered By: Steve Pina on 02-15-2022 Lymphocytes (Bld) [#/Vol] 1.0 10*3/uL 1.00-4.8 [facility] Lymphocytes/100 WBC Auto (Bl d)Ordered By: Steve Pina on 02-15-2022 Lymphocytes/100 WBC (Bld) 21.3 % . [facility] MCH Auto (RBC) [Entitic mass ]Ordered By: Steve Pina on 02-15-2022 MCH (RBC) [Entitic mass] 31.0 pg 27.5-35.2 [facility] MCHC Auto (RBC) [Mass/Vol]Or dered By: Steve Pina on 02-15-2022 MCHC (RBC) [Mass/Vol] 33.7 g/dL 32.5-35.[address] [facility] MCV Auto (RBC) [Entitic vol] Ordered By: Steve Pina on 02-15-2022 MCV (RBC) [Entitic vol] 92.1 fL 83.5-101 [facility] Measurement of proportion of calculus composed of dried blood (mass/mass)Ordered By: Shun Machado on 02-15-2022 Blood.dried (Stone) [Mass fraction] N/A [facility] Monocytes Auto (Bld) [#/Vol] Ordered By: Steve Pina on 02-15-2022 Monocytes (Bld) [#/Vol] 0.5 10*3/uL 0.0-0.8 [facility] Monocytes/100 WBC Auto (Bld) Ordered By: Steve Pina on 02-15-2022 Monocytes/100 WBC (Bld) 10.1 % . [facility] Neutrophils Auto (Bld) [#/Vo l]Ordered By: Steve Pina on 02-15-2022 Neutrophils (Bld) [#/Vol] 3.0 10*3/uL 1.8-7.7 [facility] Neutrophils/100 WBC Auto (Bl d)Ordered By: Steve Pina on 02-15-2022 Neutrophils/100 WBC (Bld) 65.0 % . [facility] Newberyite/Total in StoneOrd ered By: Shun Machado on 02-15-2022 Newberyite (Stone) [Mass fraction] N/A [facility] No Panel InformationOrdered By: Shun Machado on 02-15-2022 Stone 2,8 Dihydroxyadenine N/A [facility] Stone Analysis Disclaimer See comment . [facility] Comment on above: This test was develo ped and its performance characteristics determined by [employer]. It has not been cleared or approved by the Food and Drug Administration. Performed at: [facility] [address] [place] [address] [address] Arndt, [place], [place] [id number] Database Architect: Riley Parikh PhD, Phone: [phone] Stone Bilirubinate N/A [facility] Stone Calcium Palmitate N/A [facility] Stone [facility] Carbonate Apatite N/A [facility] Stone Drug or Metabolite N/A [facility] Stone Other Constituent N/A [facility] Stone Xanthine N/A [facility] No Panel InformationOrdered By: Steve Pina on 02-15-2022 Estimated GFR () > 60 mL/Min [facility] Comment on above: GFR estimated refere nce range: According to KDOQI guidelines, <60 ml/min/1.73m2 is sufficient to diagnose a patient with chronic kidney disease. Pharmacy Creatinine Clearance (Chem 93.62 [facility] Platelet mean volume Auto (B ld) [Entitic vol]Ordered By: Steve Pina on 02-15-2022 Platelet mean volume (Bld) [Entitic vol] 7.9 fL 6.6-10.1 [facility] Platelets Auto (Bld) [#/Vol] Ordered By: Steve Pina on 02-15-2022 Platelets (Bld) [#/Vol] 202 10*3/uL 150-450 [facility] RBC Auto (Bld) [#/Vol]Ordere d By: Steve Pina on 02-15-2022 RBC (Bld) [#/Vol] 4.58 10*6/uL 3.90-5.60 [facility] Serum or plasma calcium karl urement (mass/volume)Ordered By: Steve Pina on 02-15-2022 Calcium [Mass/Vol] 9.0 mg/dL 8.2-10.2 [facility] Serum or plasma chloride reba surement (moles/volume)Ordered By: Steve Pina on 02-15-2022 Chloride [Moles/Vol] 102 mmol/L 95-114 [facility] Serum or plasma glucose karl urement (mass/volume)Ordered By: Steve Pina on 02-15-2022 Glucose [Mass/Vol] 108 mg/dL 70-100 [facility] Comment on above: ADA recommended refe rence range Random Glucose Reference Range is dependent on time and content of last meal. Glucose of more than 200 mg/dL in a nonstressed, ambulatory subject supports the diagnosis of Diabetes Mellitus. Serum or plasma potassium me asurement (moles/volume)Ordered By: Steve Pina on 02-15-2022 Potassium [Moles/Vol] 3.9 mmol/L 3.5-5.[address] [facility] Serum or plasma sodium measu rement (moles/volume)Ordered By: Steve Pina on 02-15-2022 Sodium [Moles/Vol] 137 mmol/L 136-146 [facility] Serum or plasma total carbon dioxide measurement (moles/volume)Ordered By: Steve Pina on 02-15-2022 CO2 [Moles/Vol] 28.0 mmol/L 22.0-30.0 [facility] Serum or plasma urea nitroge n measurement (mass/volume)Ordered By: Steve Pina on 02-15-2022 Urea nitrogen [Mass/Vol] 11 mg/dL 03-16 [facility] Size [Entitic volume] of Sto neOrdered By: Shun Machado on 02-15-2022 Size (Stone) [Entitic vol] 5x3 mm . [facility] Comment on above: Multiple pieces rece ived. Dimensions of the largest piece reported. Sodium urate crystals detect ion in stone by infrared spectroscopyOrdered By: Shun Machado on 02-15-2022 Sodium urate crystals Infrared spectroscopy Ql (Stone) N/A [facility] Specimen source subject [Typ e]Ordered By: Shun Machado on 02-15-2022 Specimen source subject Nom See comment . [facility] Comment on above: Right Ureter Triamterene measurement in c alculusOrdered By: Shun Machado on 02-15-2022 Triamterene (Stone) [Mass fraction] N/A [facility] Triple phosphate/Total in St oneOrdered By: Shun Machado on 02-15-2022 Triple phosphate (Stone) [Mass fraction] N/A [facility] Uric acid dihydrate crystals detection in stone by infrared spectroscopyOrdered By: Shun Machado on 02-15-2022 Urate dihydrate crystals Infrared spectroscopy Ql (Stone) N/A [facility] XR ANKLE RT MIN 3 VIEWSon XR ANKLE RT MIN 3 VIEWS EXAMINATION: XR ANKLE RT MIN 3 VIEWS, XR FOOT JOMAR MIN 3 VIEWS HISTORY: Pain of right ankle joint ; bilateral foot surgery COMPARISON: No relevant comparison available. FINDINGS: RIGHT FINDINGS: BONES: Mechanical fusion of the first tarsal-metatarsal joint with screw extending into and fusing the second metatarsal. Mild flattening of plantar arch. Small calcaneal plantar spur. Unremarkable ankle joint. SOFT TISSUES: No visible soft tissue swelling. OTHER: Negative. LEFT FINDINGS: BONES: Mechanical fusion of the first tarsal-metatarsal joint along with the screw extending into and fusing the second metatarsal. SOFT TISSUES: No visible soft tissue swelling. OTHER: Negative. IMPRESSION: RIGHT CONCLUSION: 1. Stable surgical changes without evidence of hardware failure or change in alignment. 2. Mild pes planus. LEFT CONCLUSION: 1. Stable surgical changes without evidence of hardware failure or change in alignment. Electronically authenticated by: LAURY ZEPEDA Date: 2022-02-15 06:59 Normal [facility] COVID-19 Positive/NegativeOr dered By: Shun Machado on 02-13-2022 SARS-CoV-2 (COVID-19) N gene LU+probe Ql (Resp) Negative Negative [facility] Comment on above: Testing for SARS-CoV -2 by RT-PCR This test was developed and its performance characteristics determined by [employer]) and validated at the [facility]. This test has not been FDA cleared or approved. This test has been authorized by FDA under an Emergency Use Authorization (EUA). This test has been validated in accordance with the FDA's Guidance Document (Policy for Diagnostics Testing in Laboratories Certified to Perform High Complexity Testing under CLIA prior to Emergency Use Authorization for Coronavirus Disease-2019 during the Public Health Emergency) issued on September 24, 2019. This test is only authorized for the duration of time the declaration that circumstances exist justifying the authorization of the emergency use of in vitro diagnostic tests for detection of SARS-CoV-2 virus and/or diagnosis of COVID-19 infection under section 564(b)(1) of the Act, 21 U.S.C. 360bbb-3(b)(1), unless the authorization is terminated or revoked sooner. BN SPINE, LUMBOSACRAL; 2 OR 3 VIEWSon 01-29-2022 BN SPINE, LUMBOSACRAL; 2 OR 3 VIEWS Patient Name: JAY CARR STUDY: SPINE, LUMBOSACRAL; 2 OR 3 VIEWS INDICATION: lumbar post-op M48.062: Lumbar stenosis with neurogenic claudication. COMPARISON: November 08, 2021 ACCESSION NUMBER(S): [id number] ORDERING CLINICIAN: KENTON LAWSON FINDINGS: Status post anterior and posterior fusion L3-L5 unchanged prior examination with disc space replacement and posterior pedicle screws. Alignment normal. Upper lumbar degenerative changes greatest at L2-3 again noted. IMPRESSION: Satisfactory and unchanged appearance status post L3-L5 fusion. Electronically signed by: JENI SNYDER MD Normal [facility] Established Visit (Orthopaed ic Surgery)on 01-29-2022 Established Visit (Orthopaedic Surgery) Diagnoses/Problems Assessed Lumbar stenosis with neurogenic claudication (724.03) (M48.062) Orders Lumbar stenosis with neurogenic claudication Xray BN Spine, Lumbosacral; 2 or 3 Views; Status:Resulted - Preliminary; Done: [id number] 10:34AM Radiologist to Determine Optimal Study : Y What are the patient's signs and symptoms? : lumbar post-op Chief Complaint fuv lumbar pain History of Present Illness Jay is a very pleasant 61-year-old male who presents today with his for lumbar postop visit. He is s/p L3-4, L4-5 XLIF with interbody cage placement x2, L3-5 posterior spinal fusion via L3-5 percutaneous pedicle screw placement on 09/26/2021. I last saw the patient on 02/08/2022 at which time he reported very mild left greater than right buttock numbness/tingling that is present after standing for more than 45 minutes x 1 hour. His symptoms were managed appropriate with tizanidine and OTC Tylenol. He was given referral for physical therapy of his lumbar spine. Today, patient tells me that he continues to do exceptionally well. The numbness and tingling in his LLE continues to resolve. He reports only very mild intermittent incisional pain. He continues to do his physical therapy stretches and exercises at home daily. He is taking tizanidine 4 mg very infrequently as needed, continues to take Tylenol as needed with good relief. His main concern is that he had a previous right foot operation in which she had a nonunion and is having pain of his right foot. He tells me that his foot/ankle surgeon wanted to wait until he was recovered from his lumbar surgery to proceed with a revision. He denies bowel/bladder dysfunction, saddle anesthesia, dragging/tripping over his feet, issues with balance/gait/coordinatio n. On exam, his left flank and posterior incisions are well-healed without drainage or signs of infection. Patient walks with a normal gait in an upright position without assistive device. 5/5 strength throughout BLE. He is neurologically intact, sensation to light touch intact needle bilaterally. XR: Images of lumbar spine completed today reviewed and discussed with patient today and reveal retrolisthesis of L2 on L3, instrumentation and graft in appropriate position with good healing, no acute fracture or instability. Moving forward, I reassured the patient that I feel he is doing exceptionally well following his lumbar surgery and he and his voiced agreement. They stated that they are extremely pleased with the result of his surgery. I encouraged the patient to continue to do his physical therapy stretches and exercises at home at least once daily and he voiced understanding. He is comfortable continuing Tylenol and tizanidine as needed for pain. We discussed that from a spine standpoint he has no restrictions at this time and he is free to proceed with his right foot revision. Patient will follow up with me in 2-3 months for repeat x-rays and reevaluation. I encouraged patient to call our office with any new or worsening symptoms or if he should need any medication refills. The patient is were agreeable with the above plan and were appreciative the care provided today. This note was dictated using speech recognition software and was not corrected for spelling or grammatical errors. Active Problems Problems Cervical disc disorder with myelopathy (722.71) (M50.00) Lumbar back pain (724.2) (M54.50) Lumbar stenosis with neurogenic claudication (724.03) (M48.062) Myelopathy concurrent with and due to spinal stenosis of cervical region (723.0,336.3) (M48.02,G99.2) Spondylolisthesis, lumbar region (738.4) (M43.16) Allergies Medication Penicillins Recorded By: Zoe Perry; 03/16/2021 8:37:33 AM Current Meds Medication NameInstruction Gabapentin 300 MG Oral CapsuleTake 1 Tab by mouth daily per titration schedule, scheduled faxed to pharmacy Hibiclens 4 % External LiquidUSE DIRECTED as preop shower Hibiclens 4 % External LiquidUSE DIRECTED. Lidocaine 4 % External PatchAPPLY 1 PATCH Daily Mupirocin 2 % External OintmentAPPLY SPARINGLY TO AFFECTED AREA(S) TWICE DAILY Mupirocin 2 % External OintmentUse intranasally twice daily 5 days prior to surgery. tiZANidine HCl - 4 MG Oral TabletTAKE 1 TABLET EVERY 6 HOURS NEEDED FOR SPASM. Results/Data Xray BN Spine, Lumbosacral; 2 or 3 [id number] 10:34AMSKenton fernández Test NameResultFlagReference Xray Lumbar Spine AP + Lateral Please click on the link to view the study images Signatures Electronically signed by : Kenton Lawson PA-C; Jan 29 2022 10:44AM EST (Author) Normal [facility] 01-29-2022 XR Lumbar spine AP and Lateral Normal [facility] DO Work Phone: XR KUB 1 VIEWon 01-29-2022 XR KUB 1 VIEW EXAMINATION: XR KUB 1 VIEW HISTORY: Kidney stone COMPARISON: 01/12/2020 FINDINGS: KIDNEY/URETER - RIGHT: Right double-J ureteral stent in normal position. 5 mm calcification projected over the mid stent at the right L3 transverse process level best seen on image 2 KIDNEY/URETER - LEFT: No visible renal or ureteral calcifications. PELVIS: No visible ureteral calcifications. Any visible calcifications favor phleboliths. BOWEL: No abnormal dilation or deviation. BONES: Bilateral transpedicular fusion and interbody fusion L3-L5 OTHER: Negative. No abnormal gaseous collections. IMPRESSION: Right ureteral stent with suspected right mid ureterolith Electronically authenticated by: BANDAR SAENZ Date: 2022-01-29 21:07 Normal [facility] Activated partial thrombopla stin time (aPTT) in platelet poor plasma by coagulation aOrdered By: Shun Machado on 01-17-2022 aPTT Coag (PPP) [Time] 36.3 s 25.1-36.5 [facility] COVID-19 Positive/NegativeOr dered By: Shun Machado on 01-17-2022 SARS-CoV-2 (COVID-19) N gene LU+probe Ql (Resp) Negative Negative [facility] Comment on above: Testing for SARS-CoV -2 by RT-PCR This test was developed and its performance characteristics determined by [employer] ([employer]) and validated at the [facility]. This test has not been FDA cleared or approved. This test has been authorized by FDA under an Emergency Use Authorization (EUA). This test has been validated in accordance with the FDA's Guidance Document (Policy for Diagnostics Testing in Laboratories Certified to Perform High Complexity Testing under CLIA prior to Emergency Use Authorization for Coronavirus Disease-2019 during the Public Health Emergency) issued on September 24, 2019. This test is only authorized for the duration of time the declaration that circumstances exist justifying the authorization of the emergency use of in vitro diagnostic tests for detection of SARS-CoV-2 virus and/or diagnosis of COVID-19 infection under section 564(b)(1) of the Act, 21 U.S.C. 360bbb-3(b)(1), unless the authorization is terminated or revoked sooner. Laboratory - CoagulationOrde red By: Shun Machado on 01-17-2022 PT Coag (PPP) [Time] 11.9 s 9.0-12.9 [facility] Platelet poor plasma interna tional normalized ratio (INR) by coagulation assay (relatOrdered By: Shun Machado on 01-17-2022 INR Coag (PPP) [Relative time] 1.1 {INR} [facility] Comment on above: INR Therapeutic Rang e A) Pre- and Peroperative OAT started two weeks before surgery. NOT HIP SURGERY: 1.5 - 2.5 HIP SURGERY: 2 - 3 B) Primary and secondary prevention of venous THROMBOSIS: 2 - 3 C) Active venous thrombosis, pulmonary embolism and prevention of recurrent venous thrombosis: 2 - 3 D) Prevention of arterial thromboembolism including patients with mechanical heart valves: 3 - 4.5 XR KUB 1 VIEWon 01-11-2022 XR KUB 1 VIEW EXAMINATION: XR KUB 1 VIEW HISTORY: Kidney stone COMPARISON: 01/09/2022 FINDINGS: KIDNEY/URETER - RIGHT: 7 mm calcification ejects over the right L3 transverse process KIDNEY/URETER - LEFT: No visible renal or ureteral calcifications. PELVIS: No visible ureteral calcifications. Any visible calcifications favor phleboliths. BOWEL: No abnormal dilation or deviation. BONES: No acute abnormality. Bilateral transpedicular fusion and intervertebral spacers L3-L5 OTHER: Negative. No abnormal gaseous collections. IMPRESSION: Right mid ureterolith Electronically authenticated by: BANDAR SAENZ Date: 2022-01-11 16:29 Normal [facility] CBC AUTO DIFFon 01-09-2022 BASO # 0.0 103/ul Normal 0.0-0.1 [facility] Comment on above: Performed By: #### C BC #### [facility] [address] [address] [address] Carolyn King Basophils/100 WBC (Bld) 0.4 % Normal 0.2-2.0 [facility] Comment on above: Performed By: #### C BC #### [facility] [address] [address] [address] Carolyn King EO # 0.0 103/ul Normal 0.0-0.7 [facility] Comment on above: Performed By: #### C BC #### [facility] [address] [place] [address] Dr. Carolyn King Eosinophils/100 WBC (Bld) 0.3 % Critically low 0.9-7.0 [facility] Comment on above: Performed By: #### C BC #### [facility] [address] [place] [address] Dr. Carolyn King Erythrocyte distribution width (RBC) [Ratio] 12.6 % Normal 11.0-15.0 [facility] Comment on above: Performed By: #### C BC #### [facility] [address] [place] [address] Dr. Carolyn King Hematocrit (Bld) [Volume fraction] 45.6 % Normal 42.0-54.0 [facility] Comment on above: Performed By: #### C BC #### [facility] [address] [place] [address] Dr. Carolyn King Hemoglobin (Bld) [Mass/Vol] 15.6 g/dL Normal 14.0-18.0 [facility] Comment on above: Performed By: #### C BC #### [facility] [address] [place] [address] Dr. Carolyn King IG # 0.02 10e3/ul Normal 0.00-0.03 [facility] Comment on above: Performed By: #### C BC #### [facility] [address] [place] [address] Dr. Carolyn King IG % 0.3 % Normal 0.0-0.5 [facility] Comment on above: Performed By: #### C BC #### [facility] [address] [place] [address] Dr. Carolyn King LYMPH # 0.8 103/ul Critically low 1.2-3.8 [facility] Comment on above: Performed By: #### C BC #### [facility] [address] [place] [address] Dr. Carolyn King Lymphocytes/100 WBC (Bld) 11.4 % Critically low 20.5-60.0 [facility] Comment on above: Performed By: #### C BC #### [facility] [address] [place] [address] Dr. Carolyn King MANUAL DIFF REQ NO Normal [facility] Comment on above: Performed By: #### C BC #### [facility] [address] [place] [address] Dr. Carolyn King MCH (RBC) [Entitic mass] 30.8 pg Normal 25.9-34.0 [facility] Comment on above: Performed By: #### C BC #### [facility] [address] [place] [address] Dr. Carolyn King MCHC (RBC) [Mass/Vol] 34.2 g/dL Normal 29.9-35.2 [facility] Comment on above: Performed By: #### C BC #### [facility] [address] [place] [address] Dr. Carolyn King MCV (RBC) [Entitic vol] 89.9 fL Normal 80.0-94.0 [facility] Comment on above: Performed By: #### C BC #### [facility] [address] [place] [address] Dr. Carolyn King MONO # 0.6 103/ul Normal 0.3-0.8 [facility] Comment on above: Performed By: #### C BC #### [facility] [address] [place] [address] Dr. Carolyn King Monocytes/100 WBC (Bld) 8.5 % Normal 1.7-12.0 [facility] Comment on above: Performed By: #### C BC #### [facility] [address] [place] [address] Dr. Carolyn King NEUT # 5.8 103/ul Normal 1.4-6.5 [facility] Comment on above: Performed By: #### C BC #### [facility] [address] [address] [address] Carolyn King Neutrophils/100 WBC (Bld) 79.1 % Critically high 43.0-75.0 [facility] Comment on above: Performed By: #### C BC #### [facility] [address] [address] [address] Carolyn King Platelet mean volume (Bld) [Entitic vol] 10.7 fL Normal 9.5-13.5 [facility] Comment on above: Performed By: #### C BC #### [facility] [address] [address] [address] Carolyn King PLT 235 103/ul Normal 150-450 [facility] Comment on above: Performed By: #### C BC #### [facility] [address] [place] [address] Dr. Carolyn King RBC 5.07 106/ul Normal 4.70-6.10 [facility] Comment on above: Performed By: #### C BC #### [facility] [address] [place] [address] Dr. Carolyn King WBC 7.4 103/ul Normal 4.0-11.0 [facility] Comment on above: Performed By: #### C BC #### [facility] [address] [place], [place] [id number] Dr. Carolyn King CT ABD/PELVIS WO CONon 01-09 CT ABD/PELVIS WO CON EXAMINATION: CT ABD/PELVIS WO CON HISTORY: CALCULUS OF KIDNEY , acute right abdominal pain and nausea COMPARISON: CT abdomen pelvis 12/09/2021, ultrasound right upper quadrant 01/05/2022 TECHNIQUE: Axial, Coronal, and Sagittal images were created without IV contrast. Dose reduction techniques were achieved by using automated exposure control and/or adjustment of mA and/or kV according to patient size and/or use of iterative reconstruction technique. FINDINGS: LUNG BASES: No visible pulmonary or pleural disease. LIVER: No enlargement, atrophy, suspicious density, or significant focal lesion. BILIARY: 6 mm stone within noninflamed gallbladder. PANCREAS: No lesion, fluid collection, or abnormal duct dilatation. SPLEEN: No enlargement or focal lesion. ADRENALS: No mass or enlargement. KIDNEYS: Mild right hydronephrosis secondary to an obstructing 7 x 6 x 5 mm stone within proximal ureter. Left kidney contains 2 small nonobstructing stones. BOWEL/MESENTERY: Mild diverticulosis of sigmoid colon without acute inflammatory changes. No visible mass, obstruction, or bowel wall thickening. Normal appendix. AORTA/VASCULAR: No aneurysm or dissection. RETROPERITONEUM: No mass or adenopathy. LYMPH NODES: No adenopathy. URINARY BLADDER: No visible focal wall thickening, lesion, or calculus. PELVIC ORGANS: No visible mass. Pelvic organs appropriate for patient age. ABDOMINAL WALL: No mass or hernia. BONES: Mild grade 1 retrolisthesis of L2 on 3 and moderate degenerative disc disease. Posterior mechanical fusion L3-L4-5 with intervertebral disc spacers. OTHER: Negative. IMPRESSION: 1. Mild right hydronephrosis secondary to an obstructing 7 mm stone within proximal ureter. 2. Nonobstructing left nephrolithiasis. 3. Cholelithiasis. 4. Surgical changes of lumbar spine without appreciable acute abnormality. Electronically authenticated by: LAURY ZEPEDA Date: 2022-01-09 13:38 Normal [facility] ER URINE PROFILEon 2 Bilirubin Ql (U) Negative Normal NEGATIVE [facility] Comment on above: Performed By: #### I NSULIN #### [facility] [address] [place] [address] Dr. Carolyn King Clarity (U) CLEAR Normal CLEAR [facility] Comment on above: Performed By: #### I NSULIN #### [facility] [address] [address] [address] Carolyn King Color (U) LT. YELLOW Normal YELLOW [facility] Comment on above: Performed By: #### I NSULIN #### [facility] [address] [address] [address] Carolyn King ERUAHD A micrscopic examina tion will be performed if indicated. Normal [facility] Comment on above: Performed By: #### I NSULIN #### [facility] [address] [place] [address] Dr. Carolyn King Glucose Ql (U) Negative Normal NEGATIVE [facility] Comment on above: Performed By: #### I NSULIN #### [facility] [address] [place] [address] Dr. Carolyn King Hemoglobin Ql (U) MODERATE Abnormal NEGATIVE [facility] Comment on above: Performed By: #### I NSULIN #### [facility] [address] [place] [address] Dr. Carolyn King Ketones Ql (U) Negative Normal NEGATIVE [facility] Comment on above: Performed By: #### I NSULIN #### [facility] [address] [place] [address] Dr. Carolyn King LEUKOCYTES Negative Normal NEGATIVE [facility] Comment on above: Performed By: #### I NSULIN #### [facility] [address] [place] [address] Dr. Carolyn King Nitrite Ql (U) Negative Normal NEGATIVE [facility] Comment on above: Performed By: #### I NSULIN #### [facility] [address] [place] [address] Dr. Carolyn King pH (U) 6.0 [pH] Normal 5-9 [facility] Comment on above: Performed By: #### I NSULIN #### [facility] [address] [place] [address] Dr. Carolyn King SPEC GRAVITY 1.010 Normal 1.005-<=1. 025 [facility] Comment on above: Performed By: #### I NSULIN #### [facility] [address] [place] [address] Dr. Carolyn King UA PROTEIN Negative Normal NEGATIVE/ TRACE [facility] Comment on above: Performed By: #### I NSULIN #### [facility] [address] [place] [address] Dr. Carolyn King UR MICRO IND INDICATED Normal [facility] Comment on above: Performed By: #### I NSULIN #### [facility] [address] [place] [address] Dr. Carolyn King Urobilinogen Qn (U) 0.2 {Keren'U}/dL Normal 0.2 - 1. 0 [facility] Comment on above: Performed By: #### I NSULIN #### [facility] [address] [place] [address] Dr. Carolyn King LIPASEon 01-09-2022 Lipase [Catalytic activity/Vol] 98.0 U/L Normal 73.0-393.0 [facility] Comment on above: Performed By: #### I NSULIN #### [facility] [address] [place] [address] Dr. Carolyn King PROF 14(COMP METB)on 022 Albumin [Mass/Vol] 4.0 g/dL Normal 3.4-5.0 [facility] Comment on above: Performed By: #### I NSULIN #### [facility] [address] [place] [address] Dr. Carolyn King Albumin/Globulin [Mass ratio] 1.1 {ratio} Normal [facility] Comment on above: Performed By: #### I NSULIN #### [facility] [address] [place] [address] Dr. Carolyn King ALP [Catalytic activity/Vol] 112 U/L Normal 46-116 [facility] Comment on above: Performed By: #### I NSULIN #### [facility] [address] [place] [address] Dr. Carolyn King ALT [Catalytic activity/Vol] 27 U/L Normal 16-63 [facility] Comment on above: Performed By: #### I NSULIN #### [facility] [address] [place] [address] Dr. Carolyn King Anion gap [Moles/Vol] 14.9 mmol/L Normal [facility] Comment on above: Performed By: #### I NSULIN #### [facility] [address] [place] [address] Dr. Carolyn King AST [Catalytic activity/Vol] 22 U/L Normal 15-37 [facility] Comment on above: Performed By: #### I NSULIN #### [facility] [address] [place] [address] Dr. Carolyn King Bilirubin [Mass/Vol] 0.5 mg/dL Normal 0.2-1.0 [facility] Comment on above: Performed By: #### I NSULIN #### [facility] [address] [address] [address] Carolyn King Calcium [Mass/Vol] 9.1 mg/dL Normal 8.5-10.1 [facility] Comment on above: Performed By: #### I NSULIN #### [facility] [address] [address] [address] Carolyn King Chloride [Moles/Vol] 103 mmol/L Normal 98-107 [facility] Comment on above: Performed By: #### I NSULIN #### [facility] [address] [address] [address] Carolyn King CO2 [Moles/Vol] 26.0 mmol/L Normal 21.0-32.0 [facility] Comment on above: Performed By: #### I NSULIN #### [facility] [address] [place] [address] Dr. Carolyn King Creatinine [Mass/Vol] 1.09 mg/dL Normal 0.70-1.30 [facility] Comment on above: Performed By: #### I NSULIN #### [facility] [address] [address] [address] Carolyn King EGFR-AF NIGERIEN >60 Normal >=60 [facility] Comment on above: Performed By: #### I NSULIN #### [facility] [address] [place] [address] Dr. Carolyn King EGFR-NON AF NIGERIEN >60 Normal >=60 [facility] Comment on above: Performed By: #### I NSULIN #### [facility] [address] [address] [address] Carolyn King Globulin (S) [Mass/Vol] 3.8 g/dL Normal [facility] Comment on above: Performed By: #### I NSULIN #### [facility] [address] [address] [address] Carolyn King Glucose [Mass/Vol] 97 mg/dL Normal 74-106 [facility] Comment on above: Performed By: #### I NSULIN #### [facility] [address] [address] [address] Carolyn King Potassium [Moles/Vol] 3.9 mmol/L Normal 3.5-5.1 [facility] Comment on above: Performed By: #### I NSULIN #### [facility] [address] [place] [address] Dr. Carolyn King Protein [Mass/Vol] 7.8 g/dL Normal 6.4-8.2 [facility] Comment on above: Performed By: #### I NSULIN #### [facility] [address] [address] [address] Carolyn King Sodium [Moles/Vol] 140 mmol/L Normal 136-145 [facility] Comment on above: Performed By: #### I NSULIN #### [facility] [address] [place] [address] Dr. Carolyn King Urea nitrogen [Mass/Vol] 16.0 mg/dL Normal 7.0-18.0 [facility] Comment on above: Performed By: #### I NSULIN #### [facility] [address] [place] [address] Dr. Carolyn King Urea nitrogen/Creatinine [Mass ratio] 14.7 mg/mg Normal [facility] Comment on above: Performed By: #### I NSULIN #### [facility] [address] [place] [address] Dr. Carolyn King URINE MICROSCOPIC ONLYon BACTERIA NONE SEEN Normal NONE SEEN [facility] Comment on above: Performed By: #### I NSULIN #### [facility] [address] [place] [address] Dr. Carolyn King Bacteria identified Cx Nom (U) NOT INDICATED Normal [facility] Comment on above: Performed By: #### I NSULIN #### [facility] [address] [place] [address] Dr. Carolyn King CAST NONE SEEN Normal NONE SEEN [facility] Comment on above: Performed By: #### I NSULIN #### [facility] [address] [place], [place] [id number] Dr. Carolyn King Crystals LM Nom (Urine sed) NONE SEEN Normal NONE SEEN [facility] Comment on above: Performed By: #### I NSULIN #### [facility] [address] [place] [address] Dr. Carolyn King Epithelial cells LM Ql (Urine sed) NONE SEEN Normal NONE SEEN /RARE [facility] Comment on above: Performed By: #### I NSULIN #### [facility] [address] [place] [address] Dr. Carolyn King MUCOUS NONE SEEN Normal NONE SEEN [facility] Comment on above: Performed By: #### I NSULIN #### [facility] [address] [place] [address] Dr. Carolyn King RBC 2-5 Abnormal 0-2 [facility] Comment on above: Performed By: #### I NSULIN #### [facility] [address] [place] [address] Dr. Carolyn King WBC 0-2 Abnormal NONE SEEN [facility] Comment on above: Performed By: #### I NSULIN #### [facility] [address] [place] [address] Dr. Carolyn King US SINGLE QUAD RT UPPERon US SINGLE QUAD RT UPPER EXAM: US SINGLE QUAD RT UPPER HISTORY: . Right upper quadrant pain . COMPARISON: The pancreas is unremarkable. The liver is normal in size. No masses or biliary dilatation is noted. Color-flow is noted in the portal and hepatic veins. Right kidney measures 10.9 x 5.8 x 5.4 cm. No hydronephrosis is noted. Color-flow is noted. There is a 7 mm echogenic focus in the mid to lower pole of the right kidney with shadowing consistent with a nonobstructing calculus. Common bile duct is normal measuring 2 mm. Scanning of the gallbladder demonstrates a 7 mm echogenic focus within the gallbladder wall. This could represent a gallbladder polyp or adherent gallstone. Gallbladder wall thickening was noted. Patient had no pain upon scanning over the gallbladder. Graph no fluid was noted in the right upper quadrant. IMPRESSION: 1. 7 mm echogenic focus along the wall the gallbladder either representing a gallbladder polyp or adherent gallstone. No gallbladder wall thickening. 2. 7 mm nonobstructing right renal calculus. No hydronephrosis. 3. The remainder the right upper quadrant was unremarkable. Electronically authenticated by: BANDAR QUEZADA Date: 2022-01-05 10:15 Normal [facility] NM HEPATOBILIARY SCAN W EFon 12-27-2021 PA HEPATOBILIARY SCAN W EF HISTORY: Right upper quadrant pain. COMPARISON: CT abdomen 12/09/2021. TECHNIQUE: The patient was injected with 5.1 mCi technetium Choletec and multiple images were performed. The patient then drank 8 ounces of Ensure supplement, and images were again performed. A region of interest was placed around the gallbladder and the gallbladder ejection fraction was calculated. FINDINGS: There is normal uptake and excretion of the radiopharmaceutical by the liver into the biliary system, and bowel. Following the administration of Ensure, the gallbladder contracted with an ejection fraction of 29%. The normal range is 33% or greater by this technique. IMPRESSION: Slightly low gallbladder ejection fraction. This is consistent with chronic cholecystitis in the appropriate clinical setting. NOTE: Certain medications may inhibit gallbladder contraction, including opiates, atropine, benzodiazepines, ethanol, octreotide, nicotine, nifedipine, pirenzepine, progesterone, theophylline, and histamine H2 receptor antagonists. Electronically authenticated by: LAURY SNYDER Date: 2021-12-27 12:16 [address] [facility] [address] ABD/PELV W CONon 12-12-19 CT ABD/PELV W CON EXAMINATION: CT ABD/ PELV W CON HISTORY: Left lower quadrant pain for 10 weeks; lateral approach lumbar fusion 10 weeks ago COMPARISON: No relevant comparison available. TECHNIQUE: Axial, Coronal, and Sagittal images were created with IV contrast. Dose reduction techniques were achieved by using automated exposure control and/or adjustment of mA and/or kV according to patient size and/or use of iterative reconstruction technique. FINDINGS: LUNG BASES: No visible pulmonary or pleural disease. LIVER: No enlargement, atrophy, suspicious density, or significant focal lesion. BILIARY: Small stone within the noninflamed gallbladder. PANCREAS: No lesion, fluid collection, or abnormal duct dilatation. SPLEEN: No enlargement or focal lesion. ADRENALS: No mass or enlargement. KIDNEYS: Bilateral nonobstructing kidney stones, 6 mm on right, 2 mm on left. Unremarkable ureters. BOWEL/MESENTERY: A few diverticula involving the descending and sigmoid colon. No visible mass, obstruction, or bowel wall thickening. Normal appendix. AORTA/VASCULAR: No aneurysm or dissection. RETROPERITONEUM: No mass or adenopathy. LYMPH NODES: No adenopathy. URINARY BLADDER: No visible focal wall thickening, lesion, or calculus. PELVIC ORGANS: No visible mass. Pelvic organs appropriate for patient age. ABDOMINAL WALL: No mass or hernia. BONES: Mechanical fusion of L3-L4-5 via bilateral pedicle screws and rods; no evidence of hardware fracture loosening. Intervertebral disc spacers at L3-L4 and L4-L5. Moderate-marked degenerative disc disease and likely moderate central canal and moderate-marked foramen narrowing at L1-L2 and L2-L3. Mild opacities within posterior subcutaneous fat likely scarring from surgery. OTHER: Negative. IMPRESSION: 1. Lumbar surgical changes without appreciable acute abnormality, abscess, or significant inflammatory changes. 2. Moderate marked degenerative changes at L1-L2 and L2-L3, cephalad to the prior lumbar repair. 3. Cholelithiasis. 4. Bilateral nephrolithiasis. Electronically authenticated by: LAURY ZEPEDA Date: 2021-12-11 07:30 Normal [facility] CREATININEon 12-09-2021 Creatinine [Mass/Vol] 0.98 mg/dL Normal 0.70-1.30 [facility] Comment on above: Performed By: #### I NSULIN #### [facility] [address] [address] [address] Carolyn King EGFR-AF NIGERIEN >60 Normal >=60 [facility] Comment on above: Performed By: #### I NSULIN #### [facility] [address] [address] [address] Carolyn King EGFR-NON AF NIGERIEN >60 Normal >=60 [facility] Comment on above: Performed By: #### I NSULIN #### [facility] [address] [address] [address] Carolyn King BN SPINE, LUMBOSACRAL; 2 OR 3 VIEWSon 11-08-2021 BN SPINE, LUMBOSACRAL; 2 OR 3 VIEWS Patient Name: JAY CARR STUDY: Lumbar spine dated 11/08/2021. INDICATION: AP/LAT M54.50: Lumbar back pain M48.062: Lumbar stenosis with neurogenic claudication COMPARISON: None. ACCESSION NUMBER(S): [id number] ORDERING CLINICIAN: KENTON LAWSON TECHNIQUE: AP and lateral radiographs of the lumbar spine. FINDINGS: There are 5 lumbar type vertebral bodies. There is L3-L5 pedicle screws bridging rods and disc cages. Hardware is intact as visualized. There is grade 1 retrolisthesis of L2 on L3. Vertebral body height and alignment are otherwise maintained. No fracture or dislocation is evident. Multilevel degenerative changes seen of the visualized spine with moderate L2-3 discogenic and facet degenerative change. Moderate discogenic degenerative changes also seen at L1-2. Vascular calcifications are seen over the soft tissues. IMPRESSION: 1. Grade 1 retrolisthesis of L2 on L3. 2. Surgical and degenerative changes above. Electronically signed by: BATSHEVA VIDAL MD [facility] Post Op (Orthopaedic Surgery )on 11-08-2021 Post Op (Orthopaedic Surgery) Diagnoses/Problems Assessed Lumbar back pain (724.2) (M54.50) Lumbar stenosis with neurogenic claudication (724.03) (M48.062) Spondylolisthesis, lumbar region (738.4) (M43.16) Orders Lumbar back pain, Lumbar stenosis with neurogenic claudication, Spondylolisthesis, lumbar region Physical Therapy - General Referral Evaluation and Treatment Evaluate AND Treat Status: Hold For - Scheduling Requested for: 08Nov2021 Patient Discussion/Summary XR: Images of lumbar spine completed today personally reviewed and discussed with patient today and reveal instrumentation in appropriate position with good healing. No acute fracture or instability. He is exceptionally pleased with the results of his lumbar surgery. I advised patient that such rapid resolution of symptoms is very reassuring, and his numbness in his bilateral buttock should continue to improve. He was given referral for physical therapy for general lumbar and lower extremity strengthening as well as to relearn different stretches taught to help reduce lumbar tightness. I advised the patient to continue use of Tylenol and tizanidine as needed for his incisional pain. Restrictions and limitations were reviewed. He will follow-up with me in 2 months for repeat x-rays and reevaluation. I encouraged the patient to call our office with any concerns, new or worsening symptoms, or if he should need medication refills. The patient, his , and his daughter were agreeable with the above plan were appreciative the care provided today. This note was dictated using speech recognition software and was not corrected for spelling or grammatical errors Chief Complaint LUMBAR SURG History of Present Illness Jay is a very pleasant 61-year-old male who presents today with his and daughter for lumbar MITCHELL. He is s/p L3-4 and L4-5 XLIF with interbody cage placement x2, L3-5 posterior 5 spinal fusion via L3-L5 percutaneous pedicle screw placement. Today, the patient tells me that he is doing exceptionally well. He reports very mild L>R buttock numbness/tingling that is present after standing for greater than 45 minutes - 1 hour. He is also having some very mild posterior incisional pain. His pain is managed adequately with tizanidine and OTC Tylenol. He is now able to walk over 2 miles which is markedly improved from his preoperative state. He reports normal bowel and bladder function. On exam, his left flank and posterior incisions are well-healed without drainage or signs of infection. 5/5 strength throughout BLE. Normal sensation. Neurologically intact. Ambulates in an upright position without assistive device. XR: Images of lumbar spine completed today personally reviewed and discussed with patient today and reveal instrumentation in appropriate position with good healing. No acute fracture or instability. He is exceptionally pleased with the results of his lumbar surgery. I advised patient that such rapid resolution of symptoms is very reassuring, and his numbness in his bilateral buttock should continue to improve. He was given referral for physical therapy for general lumbar and lower extremity strengthening as well as to relearn different stretches taught to help reduce lumbar tightness. I advised the patient to continue use of Tylenol and tizanidine as needed for his incisional pain. Restrictions and limitations were reviewed. He will follow-up with me in 2 months for repeat x-rays and reevaluation. I encouraged the patient to call our office with any concerns, new or worsening symptoms, or if he should need medication refills. The patient, his , and his daughter were agreeable with the above plan were appreciative the care provided today. This note was dictated using speech recognition software and was not corrected for spelling or grammatical errors. Active Problems Problems Cervical disc disorder with myelopathy (722.71) (M50.00) Lumbar back pain (724.2) (M54.50) Lumbar stenosis with neurogenic claudication (724.03) (M48.062) Myelopathy concurrent with and due to spinal stenosis of cervical region (723.0,336.3) (M48.02,G99.2) Spondylolisthesis, lumbar region (738.4) (M43.16) Allergies Medication Penicillins Recorded By: Zoe Perry; 03/16/2021 8:37:33 AM Current Meds Medication NameInstruction Gabapentin 300 MG Oral CapsuleTake 1 Tab by mouth daily per titration schedule, scheduled faxed to pharmacy Hibiclens 4 % External LiquidUSE DIRECTED as preop shower Hibiclens 4 % External LiquidUSE DIRECTED. Lidocaine 4 % External PatchAPPLY 1 PATCH Daily Mupirocin 2 % External OintmentAPPLY SPARINGLY TO AFFECTED AREA(S) TWICE DAILY Mupirocin 2 % External OintmentUse intranasally twice daily 5 days prior to surgery. tiZANidine HCl - 4 MG Oral TabletTAKE 1 TABLET EVERY 6 HOURS NEEDED FOR SPASM. Signatures Electronically signed by : Kenton Lawson PA-C; Nov 08 2021 2:20PM EST (Author) Normal [facility] 11-08-2021 XR Lumbar spine AP and Lateral Please click on the link to view the study images Normal [facility] 5[facility] DO Work Phone: XR Lumbar spine AP and Lateral Normal [facility] Work Phone: CBCon 09-29-2021 HCT Canceled Normal [facility] Comment on above: Order Comment: TEST CBC WAS CANCELLED, 09/29/2021 08:10 NO SPECIMEN RECEIVED IN LAB. Performed By: #### C BC ####[id number] [place] [address] HGB Canceled Normal [facility] Comment on above: Order Comment: TEST CBC WAS CANCELLED, 09/29/2021 08:10 NO SPECIMEN RECEIVED IN LAB. Performed By: #### C BC ####[id number] [place] [address] MCHC Canceled Normal [facility] Comment on above: Order Comment: TEST CBC WAS CANCELLED, 09/29/2021 08:10 NO SPECIMEN RECEIVED IN LAB. Performed By: #### C BC ####[id number] [place] [address] MCV Canceled Normal [facility] Comment on above: Order Comment: TEST CBC WAS CANCELLED, 09/29/2021 08:10 NO SPECIMEN RECEIVED IN LAB. Performed By: #### C BC ####[id number] [place] [address] NUCLEATED RBC Canceled Normal [facility] Comment on above: Order Comment: TEST CBC WAS CANCELLED, 09/29/2021 08:10 NO SPECIMEN RECEIVED IN LAB. Performed By: #### C BC ####[id number] [place] [address] PLT Canceled Normal [facility] Comment on above: Order Comment: TEST CBC WAS CANCELLED, 09/29/2021 08:10 NO SPECIMEN RECEIVED IN LAB. Performed By: #### C BC ####[id number] [place] [address] RBC Canceled Normal [facility] Comment on above: Order Comment: TEST CBC WAS CANCELLED, 09/29/2021 08:10 NO SPECIMEN RECEIVED IN LAB. Performed By: #### C BC ####[id number] [place] [address] RDW-CV Canceled Normal [facility] Comment on above: Order Comment: TEST CBC WAS CANCELLED, 09/29/2021 08:10 NO SPECIMEN RECEIVED IN LAB. Performed By: #### C BC ####[id number] [place] [address] WBC Canceled Normal [facility] Comment on above: Order Comment: TEST CBC WAS CANCELLED, 09/29/2021 08:10 NO SPECIMEN RECEIVED IN LAB. Performed By: #### C BC ####[id number] [place] [address] BASIC METABOLIC PANELon 04-0 ANION GAP Canceled Normal [facility] Comment on above: Order Comment: TEST BASIC METABOLIC PANEL WAS CANCELLED, 09/28/2021 04:56 Performed By: #### B MP ####[id number] [place] [address] BICARBONATE Canceled Normal [facility] Comment on above: Order Comment: TEST BASIC METABOLIC PANEL WAS CANCELLED, 09/28/2021 04:56 Performed By: #### B MP ####[id number] [place] [address] CALCIUM Canceled Normal [facility] Comment on above: Order Comment: TEST BASIC METABOLIC PANEL WAS CANCELLED, 09/28/2021 04:56 Performed By: #### B MP ####[id number] [place] [address] CHLORIDE Canceled Normal [facility] Comment on above: Order Comment: TEST BASIC METABOLIC PANEL WAS CANCELLED, 09/28/2021 04:56 Performed By: #### B MP ####[id number] [place] [address] CREATININE Canceled Normal [facility] Comment on above: Order Comment: TEST BASIC METABOLIC PANEL WAS CANCELLED, 09/28/2021 04:56 Performed By: #### B MP ####[id number] [place] [address] eGFR FEMALE Canceled Normal [facility] Comment on above: Order Comment: TEST BASIC METABOLIC PANEL WAS CANCELLED, 09/28/2021 04:56 Result Comment: CALC ULATIONS OF ESTIMATED GFR ARE PERFORMED USING THE 2020 CKD-EPI STUDY REFIT EQUATION WITHOUT THE RACE VARIABLE FOR THE IDMS-TRACEABLE CREATININE METHODS. https://jasn.asnjournals.org/content/early/ASN.27713 88306 Performed By: #### B MP ####[id number] [place] [address] eGFR MALE Canceled Normal [facility] Comment on above: Order Comment: TEST BASIC METABOLIC PANEL WAS CANCELLED, 09/28/2021 04:56 Result Comment: CALC ULATIONS OF ESTIMATED GFR ARE PERFORMED USING THE 2020 CKD-EPI STUDY REFIT EQUATION WITHOUT THE RACE VARIABLE FOR THE IDMS-TRACEABLE CREATININE METHODS. https://jasn.asnjournals.org/content/early//ASN.19167 36022 Performed By: #### B MP ####[id number] [place] [address] GLUCOSE Canceled Normal [facility] Comment on above: Order Comment: TEST BASIC METABOLIC PANEL WAS CANCELLED, 09/28/2021 04:56 Performed By: #### B MP ####[id number] [place] [address] POTASSIUM Canceled Normal [facility] Comment on above: Order Comment: TEST BASIC METABOLIC PANEL WAS CANCELLED, 09/28/2021 04:56 Performed By: #### B MP ####[id number] [place] [address] SODIUM Canceled Normal [facility] Comment on above: Order Comment: TEST BASIC METABOLIC PANEL WAS CANCELLED, 09/28/2021 04:56 Performed By: #### B MP ####[id number] [place] [address] UREA NITROGEN Canceled Normal [facility] Comment on above: Order Comment: TEST BASIC METABOLIC PANEL WAS CANCELLED, 09/28/2021 04:56 Performed By: #### B MP ####[id number] [place] [address] BASIC METABOLIC PANELon 04-0 Anion gap [Moles/Vol] 16 mmol/L Normal 10 - 20 [facility] Comment on above: Performed By: #### B MP #### [facility] [id number] [place] [address] Calcium [Mass/Vol] 9.0 mg/dL Normal 8.6 - 10.6 [facility] Comment on above: Performed By: #### B MP #### [facility] [id number] [place] [address] Chloride [Moles/Vol] 103 mmol/L Normal 98 - 107 [facility] Comment on above: Performed By: #### B MP #### [facility] [id number] [place] [address] Creatinine [Mass/Vol] 0.83 mg/dL Normal 0.50 - 1.30 [facility] Comment on above: Performed By: #### B MP #### [facility] [address] [place] [address] eGFR MALE >90 Normal >90 [facility] Comment on above: Result Comment: CALC ULATIONS OF ESTIMATED GFR ARE PERFORMED USING THE 2020 CKD-EPI STUDY REFIT EQUATION WITHOUT THE RACE VARIABLE FOR THE IDMS-TRACEABLE CREATININE METHODS. https://jasn.asnjournals.org/content/early//ASN.55826 75119 Performed By: #### B MP #### [facility] [address] [place] [address] Glucose [Mass/Vol] 141 mg/dL High 74 - 99 [facility] Comment on above: Performed By: #### B MP #### [facility] [address] [place] [address] HCO3 (Bld) [Moles/Vol] 24 mmol/L Normal 21 - 32 [facility] Comment on above: Performed By: #### B MP #### [facility] [address] [place] [address] Potassium [Moles/Vol] 4.4 mmol/L Normal 3.5 - 5.3 [facility] Comment on above: Performed By: #### B MP #### [facility] [address] [place] [address] Sodium [Moles/Vol] 139 mmol/L Normal 136 - 145 [facility] Comment on above: Performed By: #### B MP #### [facility] [id number] [place] [address] Urea nitrogen [Mass/Vol] 13 mg/dL Normal 6 - 23 [facility] Comment on above: Performed By: #### B MP #### [facility] [address] [place] [address] CBCon 09-27-2021 HCT Canceled Normal [facility] Comment on above: Order Comment: TEST URINALYSIS WAS CANCELLED, 09/19/2021 12:02 DUPLICATE ORDER. Performed By: #### U A #### [facility] [id number] [place] [address] HGB Canceled Normal [facility] Comment on above: Order Comment: TEST URINALYSIS WAS CANCELLED, 09/19/2021 12:02 DUPLICATE ORDER. Performed By: #### U A #### [facility] [id number] [place] [address] MCHC Canceled Normal [facility] Comment on above: Order Comment: TEST URINALYSIS WAS CANCELLED, 09/19/2021 12:02 DUPLICATE ORDER. Performed By: #### U A #### [facility] [address] [place] [address] MCV Canceled Normal [facility] Comment on above: Order Comment: TEST URINALYSIS WAS CANCELLED, 09/19/2021 12:02 DUPLICATE ORDER. Performed By: #### U A #### [facility] [address] [place] [address] NUCLEATED RBC Canceled Normal [facility] Comment on above: Order Comment: TEST URINALYSIS WAS CANCELLED, 09/19/2021 12:02 DUPLICATE ORDER. Performed By: #### U A #### [facility] [address] [place] [address] PLT Canceled Normal [facility] Comment on above: Order Comment: TEST URINALYSIS WAS CANCELLED, 09/19/2021 12:02 DUPLICATE ORDER. Performed By: #### U A #### [facility] [address] [place] [address] RBC Canceled Normal [facility] Comment on above: Order Comment: TEST URINALYSIS WAS CANCELLED, 09/19/2021 12:02 DUPLICATE ORDER. Performed By: #### U A #### [facility] [address] [place] [address] RDW-CV Canceled Normal [facility] Comment on above: Order Comment: TEST URINALYSIS WAS CANCELLED, 09/19/2021 12:02 DUPLICATE ORDER. Performed By: #### U A #### [facility] [address] [place] [address] WBC Canceled Normal [facility] Comment on above: Order Comment: TEST URINALYSIS WAS CANCELLED, 09/19/2021 12:02 DUPLICATE ORDER. Performed By: #### U A #### [facility] [address] [place] [address] Erythrocyte distribution width (RBC) [Ratio] 13.1 % Normal 11.5 - 14.5 [facility] Comment on above: Performed By: #### U A #### [facility] [address] [place] [address] Hematocrit (Bld) [Volume fraction] 41.3 % Normal 41.0 - 52.0 [facility] Comment on above: Performed By: #### U A #### [facility] [address] [place] [address] Hemoglobin (Bld) [Mass/Vol] 14.1 g/dL Normal 13.5 - 17.5 [facility] Comment on above: Performed By: #### U A #### [facility] [address] [place] [address] MCHC (RBC) [Mass/Vol] 34.1 g/dL Normal 32.0 - 36.0 [facility] Comment on above: Performed By: #### U A #### [facility] [address] [place] [address] MCV (RBC) [Entitic vol] 93 fL Normal 80 - 100 [facility] Comment on above: Performed By: #### U A #### [facility] [address] [place] [address] NUCLEATED RBC 0.0 /100 WBC Normal 0.0-0.0 [facility] Comment on above: Performed By: #### U A #### [facility] [address] [place] [address] Platelets (Bld) [#/Vol] 217 10*3/uL Normal 150 - 450 [facility] Comment on above: Performed By: #### U A #### [facility] [address] [place] [address] RBC 4.42 x10E12/L Low 4.50 - 5.90 [facility] Comment on above: Performed By: #### U A #### [facility] [address] [place] [address] WBC (Bld) [#/Vol] 13.6 10*3/uL High 4.4 - 11.3 [facility] Comment on above: Performed By: #### U A #### [facility] [address] [place] [address] Daily Progress Note-Orthopae dicson 09-27-2021 Daily Progress Note-Orthopaedics Service: Orthopaedics Subjective Data: JAY CARR is a 61 year old Male who is Hospital Day # 2 and POD #1 for 1. XLIF L3/4, 4/5;2. Navigated percutaneous PSIF L3-5. Patient resting comfortably in bed. Pain well controlled. Denies CP, SOB, F/C, N/V. No new N/T. Objective Data: Objective Information: T PRBPMAPSpO2 [id number]% Date/Time09/27 5: 5: 5: 5: 5:39 Range(36.5C - 37C ) (77 - 92 ) (17 - 18 ) (113 - 160 )/ (72 - 77 ) (98% - 100% ) Highest temp of 37 C was recorded at 09/27 5:39 Pain reported at 09/26 18:40: 6 = Moderate Physical Exam by System: Constitutional: Patient well appearing, no acute distress resting in bed Eyes: PERRL, EOMI, clear sclera ENMT: MMM Head/Neck: Atraumatic Respiratory/Thorax: Breathing comfortably on the RA Cardiovascular: RRR Musculoskeletal: Spine Exam: Dressings CDI No bruising, swelling, or erythema L1: SILT L2: SILT Hip flexors 5/5 Left; 5/5 Right L3: SILT Knee extension 5/5 Left; 5/5 Right L4: SILT Tib Ant. (Dorsiflexion) 5/5 Left; 5/5 Right L5: SILT EHL 5/5 Left; 5/5 Right S1: SILT Planter flexion 5/5 Left; 5/5 Right Clonus: Absent Neurological: alert and oriented x3 Psychological: Appropriate mood Skin: No skin breaks Recent Lab Results: Results: Recent Arterial Blood Gas Results 09/26/2021 12:37 [id number] pH7.37 [id number] Base Excess0.8null Assessment and Plan: Code Status: Code StatusFull Code Assessment: 61 y/o male s/p L3/4-4/5 XLIF, L3-5 perc PSIF on 09/26/[address] Richardson, doing well. Plan: - WB status: WBAT, no excessive bending/twisting - DVT ppx: SCDs + Teds at all times while in bed, ambulation - Diet: Clear liquid diet, ADAT to regular - PHARMACEUTICAL PROCESS ENGINEER => PO pain medication per pain protocol - 24 hr perioperative abx: clinda x 4 doses - FEN: Continue NS at 100cc/hr; HLIV with good PO intake - Bowel Regimen: Colace, Dulcolax, Senna - PT/OT consult - Continue home medications - Discontinue goodrich catheter POD #1 - Decadron 4mg q6hr x4 doses Dispo: pending pain control on PO, PT/OT Timothy Steinberg M.D. Orthopaedic Surgery, PGY-2 Pager: [phone] Orthopaedic Spine Team Brannon Steinberg, PGY-2 [phone] - 1st call Orquidea Akbar PGY-4 [phone] - 2nd call Available via [employer] After 5pm-7am, weekends, holidays please page [phone] for mental health professional resident for urgent questions/concerns. Attestation: Note Completion: I am a: Resident/Fellow Attending AttestationI saw and evaluated the patient. I personally obtained the meadows and critical portions of the history and physical exam or was physically present for meadows and critical portions performed by the resident/fellow. I reviewed the resident/fellows documentation and discussed the patient with the resident/fellow. I agree with the resident/fellows medical decision making as documented in the note. I personally evaluated the patient [id number] Electronic Signatures: Sal Richardson) (Signed 29-Sep-2021 11:37) Authored: Note Completion Co-Signer: Service, Subjective Data, Objective Data, Assessment and Plan, Note Completion Timothy Steinberg (Resident)) (Signed 27-Sep-2021 06:49) Authored: Service, Subjective Data, Objective Data, Assessment and Plan, Note Completion Last Updated: 29-Sep-2021 11:37 by Sal Richardson) Normal [facility] Order Reconciliationon 09-27 Order Reconciliation Page 1 Discharge Reconciliation Document Reconciliation Type: Discharge requested on behalf of Timothy Steinberg (Resident) done by Timothy Steinberg ( (Resident)) Discharge - Reconciliation: 27-Sep-2021 13:39 by: Timothy Steinberg ( (Resident)) Discharge - Reset to Incomplete: 27-Sep-2021 13:40 by: Timothy Steinberg ( (Resident)) Discharge - Reconciliation: 27-Sep-2021 13:42 by: Timothy Steinberg (Resident)) Home Medications EnteredHOME MEDICATIONS AT DISCHARGE DateReconciliation Comment/ Additional Information hydroxychloroquine 200 mg oral tablet 1 tab(s) oral 2 times a day 19-Sep-2021 09:02 hydroxychloroquine 200 mg oral tablet 1 tab(s) oral 2 times a day 19-Sep-2021 09:02 hydroxychloroquine 200 mg oral tablet is continued as hydroxychloroquine 200 mg oral tablet irbesartan 300 mg oral tablet 1 tab(s) oral once a day 19-Sep-2021 09:05 irbesartan 300 mg oral tablet 1 tab(s) oral once a day 19-Sep-2021 09:05 irbesartan 300 mg oral tablet is continued as irbesartan 300 mg oral tablet methocarbamol 500 mg oral tablet 2 tab(s) oral every 8 hours 21-Jun-2021 00:00 Discontinued; Discontinue from ORM methocarbamol 500 mg oral tablet is not required NIFEdipine 30 mg oral tablet, extended release 1 tab(s) oral once a day 19-Sep-2021 09:02 NIFEdipine 30 mg oral tablet, extended release 1 tab(s) oral once a day 19-Sep-2021 09:02 NIFEdipine 30 mg oral tablet, extended release is continued as NIFEdipine 30 mg oral tablet, extended release pantoprazole 40 mg oral delayed release tablet 1 tab(s) oral once a day 19-Sep-2021 09:02 pantoprazole 40 mg oral delayed release tablet 1 tab(s) oral once a day 19-Sep-2021 09:02 pantoprazole 40 mg oral delayed release tablet is continued as pantoprazole 40 mg oral delayed release tablet tiZANidine 4 mg oral tablet 1 oral 19-Sep-2021 09:05 Discontinued; Discontinue from ORM tiZANidine 4 mg oral tablet is not required Vitamin C 1 3 times a day 19-Sep-2021 09:05 Vitamin C 1 3 times a day 19-Sep-2021 09:05 Vitamin C is continued as Vitamin C Vitamin D3 1 3 times a day 19-Sep-2021 09:05 Vitamin D3 1 3 times a day 19-Sep-2021 09:05 Vitamin D3 is continued as Vitamin D3 Zinc 140 mg (as elemental zinc 50 mg) oral tablet 1 tab(s) oral once a day 19-Sep-2021 09:04 Zinc 140 mg (as elemental zinc 50 mg) oral tablet 1 tab(s) oral once a day 19-Sep-2021 09:04 Zinc 140 mg (as elemental zinc 50 mg) oral tablet is continued as Zinc 140 mg (as elemental zinc 50 mg) oral tablet Current OrdersDateHOME MEDICATIONS AT DISCHARGE DateReconciliation Comment/ Additional Information Acetaminophen Tablet (TYLENOL)DOSE = 650 mg Oral Every 4 Hours 26-Sep-2021 15:16 Acetaminophen is not required Docusate Capsule (COLACE)DOSE = 100 mg Oral 2 Times a Day, PRN Constipation 26-Sep-2021 15:16 Docusate is not required Hydroxychloroquine - PEDS Tablet (PLAQUENIL)DOSE = 200 mg Oral 2 Times a Day 26-Sep-2021 18:10 Hydroxychloroquine - PEDS is not required Methocarbamol Tablet (ROBAXIN)DOSE = 1,000 mg Oral Every 8 Hours, PRN muscle spasms 26-Sep-2021 15:18 Methocarbamol is not required Naloxone Injectable (NARCAN)DOSE = 0.2 mg IntraVenous Push Once, PRN patient is unarousable, and respiratory rate lessClinician Notes: HOLD PHARMACEUTICAL PROCESS ENGINEER Infusion and notify H.O. immediately 26-Sep-2021 15:16 Naloxone Injectable is not required NIFEdipine (PROCARDIA XL) Extended Release Tablet, Extended ReleaseDOSE = 30 mg Oral Daily 26-Sep-2021 18:10 NIFEdipine (PROCARDIA XL) Extended Release is not required Ondansetron Injectable (ZOFRAN)DOSE = 4 mg IntraVenous Push Every 6 Hours, PRN Nausea & Vomiting 26-Sep-2021 15:16 Ondansetron Injectable is not required oxyCODONE Immediate Release Tablet (OXYIR, ROXICODONE)DOSE = 10 mg Oral Every 4 Hours, PRN Pain - Severe (7-10) 27-Sep-2021 06:50 oxyCODONE Immediate Release is not required oxyCODONE Immediate Release Tablet (OXYIR, ROXICODONE)DOSE = 5 mg Oral Every 4 Hours, PRN Pain - Mod (4-6) 27-Sep-2021 06:50 oxyCODONE Immediate Release is not required Pantoprazole Enteric Coated Tablet (PROTONIX)DOSE = 40 mg Oral Daily 26-Sep-2021 18:10 Pantoprazole is not required Polyethylene Glycol Powder for Reconstitution (MIRALAX)DOSE = 17 gram(s) Oral Daily 26-Sep-2021 15:16 Polyethylene Glycol is not required Sennosides Tablet (SENOKOT)DOSE = 1 tablet(s) Oral DailyClinician Notes: Every 24 hours: Do NOT use with Bisacodyl. 26-Sep-2021 15:16 Sennosides is not required Sodium Chloride 0.9% Injectable Flush via Peripheral LineVolume = 10 mL IntraVenous Flush Every 8 Hours and as Needed 27-Sep-2021 13:34 Sodium Chloride 0.9% Injectable Flush is not required Home Medications Added During Discharge Reconciliation Colace 100 mg oral capsule 1 cap(s) orally 2 times a day Discharge Discharge Diagnosis< M48.061 Lumbar stenosis Discharge Provider, Chinmay Miranda Discharge Disposition : .Home Condition at Discharge: (more content not included)... Normal [facility] PT Evaluation [id number] t - co-tx c/ OT for maximized saon 09-27-2021 PT Evaluation [id number] - co-tx c/ OT for maximized sa Rehab: Info: Mode of Treatmentco-treatment; physical therapy; co-tx c/ OT for maximized safety and mobility Time IN10:00 Time OUT10:27 Total Treatment [id number] Patient in ... at end of sessionchair; alarm on Communicated with ... at end of sessionbedside nurse Patient Effortexcellent Symptoms Noted During/After Treatmentnone Patient Profile Reviewedyes Onset of Illness/Injury or Date of [id number] Reason for ReferralXLIF L3/4, 4/5;2. Navigated percutaneous PSIF L3-5 Patient/Family/Caregiver Comments/ObservationsPt. reports R foot pain/dysfunction c/ amb. Pt. stated plan for future orthopedic intervention. Pain did not limit current General Observations of PatientPt. supine; A&Ox4 and agreeable to therapy. Pt. tolerated transfers and ambulation well without fatigue, SOB nor increase in pain. Pt. able to perform mobility tasks within precautions. Pertinent History of Current Functional ProblemPMH: Jun 13 ACDF C5/6, GERD, HTN, R TKA, lupus Hearing Precautions/LimitationsW FL Precautions/Limitationss nasir precautions; WBAT Ambulation Skills - Previous Level of Functionindependent community ambulator per pt. report, amb length limited since 2018; previously walking 10-15 miles/day Transfer Skills - Previous Level of Functionindependent ADL Skills - Previous Level of Functionindependent Work/Leisure Activity - Previous Level of Functionindependent; currently on disability; enjoys wood working. (+) drives Living Arrangementshouse Lives Withspouse; works afternoons and is available for assistance during the day Home Accessibilityfirst floor set up available; grab bars present (bathtub); grab bars present (toilet); ramps present at home Type of Equipment Currently In the Homeshower chair; standard walker Line and TubesIV Vision/Cognition: Affect/Mental Status (Cognitive)WFL Orientation Status (Cognition)oriented x 4 Cognitive Function (Cognitive)WFL Able to Follow Commands (Receptive)WFL ROM: Lower Extremity: Range of Motionleft lower extremity ROM WFL; right lower extremity ROM WFL MMT: Lower Extremity: Manual Muscle Testing (MMT)right lower extremity strength WFL; left lower extremity strength WFL; bilat LE grossly >/=3+/5 observed through functional mobility Mobility/Tone: Bed Mobility Assessment/Interventions supine to sit Vgtgyh-bf-Aye Miller (Bed Mobility)standby assist; 1 person assist Assistive Device (Bed Mobility)bed rails Comment, Bed MobilityPt. educated on log roll Transfer Assessment/Interventions sit to stand transfer; stand to sit transfer; bed to chair transfer Bed-Chair Miller (Transfers)1 person assist; standby assist; verbal cues Sit-Stand Miller (Transfers)standby assist; 1 person assist Sit-Stand Assistive Device (Transfers)no AD Stand-Sit Miller (Transfers)standby assist; 1 person assist Stand-Sit Assistive Device (Transfers)no AD Gait/Stairs Locomotiongait/ambulatio n independence; gait/ambulation assistive device; distance ambulated; gait deviations Gait Locomotion (Gait)standby assist; 1 person assist Assistive Device (Gait Training)no AD Distance in Feet (Gait Training)200 ft Gait Deviations Identified (Gait)decreased jose; decreased step length; decreased stride length Comment, Gait/Stairs TrainingPt subjective report of R foot pain c/ amb (chronic per pt from previous surgery), not limiting current session. Pt. reaching for wall in room during initial amb, pt. declined FWW and remained SBA for amb in inman. Pt. able to amb c/o acute LOB or perturbations. Impairments Impacting Function (Mobility)endurance/acti vity tolerance; pain Motor: Sitting, Static (Balance)SBA Sitting, Dynamic (Balance)SBA Xmj-mj-Yvubp (Balance)SBA Standing, Static (Balance)SBA Standing, Dynamic (Balance)SBA Balance ActivitiesStanding dynamic balance activities c/ UE use Sensory: Pre-Treatment Pain Rating7/10 Post-Treatment Pain Rating5/10 Pain Locationlumbar spine; incisional Comment, Pre/Post Treatment PainDec in pain c/ amb and movement OOB Pain LimitationEducated patient on rest/activity routine to address increase in pain; Patient trained for proper mobility/transfer techniques to decrease pain Sensory General Assessmentno sensation deficits identified; pt. denies n/t Health: Observed Emotional Statecalm; cooperative; pleasant Plan of Care Reviewed Withpatient Impression: Criteria for Skilled Therapeutic Interventions Met (PT Eval)yes; treatment indicated PT Diagnosisimpaired mobility Patient/Family Goals Statement (PT Eval)return home, dec pain System Pathology/Pathophysiolog y Noted (PT Eval)musculoskeletal Impairments Found (PT Eval)gait, locomotion, and balance; aerobic capacity/endurance Functional Limitations in Following Categoriesmobility/gait; work; community/leisure Rehab Potential (PT Eval)good, to achieve stated therapy goals Thera (more content not included)... Normal [facility] ARTERIAL FULL PANELon 04-05- 2022 Anion gap [Moles/Vol] 11 mmol/L Normal 10 - 25 [facility] Comment on above: Performed By: #### A FPA4 #### [facility] [address] [place] [address] BASE EXCESS-BLOOD 0.8 mmol/L Normal -2.0 - 3.0 [facility] Comment on above: Performed By: #### A FPA4 #### [facility] [address] [place] [address] BICARB, CALCULATED 26.6 mmol/L High 22.0 - 26.0 [facility] Comment on above: Performed By: #### A FPA4 #### [facility] [address] [place] [address] CALCIUM,IONIZED 1.15 mmol/L Normal 1.10 - 1.33 [facility] Comment on above: Performed By: #### A FPA4 #### [facility] [address] [place] [address] Chloride [Moles/Vol] 102 mmol/L Normal 98 - 107 [facility] Comment on above: Performed By: #### A FPA4 #### [facility] [address] [place] [address] Glucose [Mass/Vol] 114 mg/dL High 74 - 99 [facility] Comment on above: Performed By: #### A FPA4 #### [facility] [address] [place] [address] Hematocrit (Bld) [Volume fraction] 42.0 % Normal 41.0 - 52.0 [facility] Comment on above: Performed By: #### A FPA4 #### [facility] [address] [place] [address] Hemoglobin (Bld) [Mass/Vol] 14.1 g/dL Normal 13.5 - 17.5 [facility] Comment on above: Performed By: #### A FPA4 #### [facility] [address] [place] [address] Lactate [Moles/Vol] 1.3 mmol/L Normal 0.4 - 2.0 [facility] Comment on above: Performed By: #### A FPA4 #### [facility] [address] [place] [address] OXY HGB 97.5 % Normal 94.0 - 98.0 [facility] Comment on above: Performed By: #### A FPA4 #### [facility] [address] [place] [address] Oxygen (Bld) [Partial pressure] 160 mm[Hg] High 85 - 95 [facility] Comment on above: Performed By: #### A FPA4 #### [facility] [address] [place] [address] PATIENT TEMPERATURE 37.0 degrees C Normal [facility] Comment on above: Result Comment: NOTE : PATIENT RESULTS ARE NOT CORRECTED FOR TEMPERATURE. Performed By: #### A FPA4 #### [facility] [address] [place] [address] PCO2 46 mmHg High 38 - 42 [facility] Comment on above: Performed By: #### A FPA4 #### [facility] [address] [place] [address] pH (Bld) 7.37 [pH] Low 7.38 - 7.42 [facility] Comment on above: Performed By: #### A FPA4 #### [facility] [address] [place] [address] Potassium [Moles/Vol] 4.8 mmol/L Normal 3.5 - 5.3 [facility] Comment on above: Performed By: #### A FPA4 #### [facility] [address] [place] [address] SO2 100 % Normal 94 - 100 [facility] Comment on above: Performed By: #### A FPA4 #### [facility] [address] [place] [address] Sodium [Moles/Vol] 135 mmol/L Low 136 - 145 [facility] Comment on above: Performed By: #### A FPA4 #### [facility] [address] [place] [address] Admission Risk Screen - Adul ton 09-26-2021 Admission Risk Screen - Adult Allergies: Allergies: penicillin: Rash Patient Verification: New W ID Band Applied in my Departmentyes Patient Identity Verified Bypatient ID Band FULL Name, include Middle, spelling matches patient's ID used for verificationyes ID Band Matches Patient ID used for Verficationyes ID Band MRN Matches EMR MRNyes Visitor Restriction: Coronavirus Visitor Restriction: Reasonable restrictions to in-person visitors will be observed due to current coronavirus pandemic. Travel History: COVID-19 Screening Completedno exposure or symptoms Travel or Exposure Past 30 DaysNO travel to International locations in the past 30 days Ebola AlertFor Ebola-like Symptoms: Isolate Patient and Notify Provider/Ground Crew Chief For Contact: Notify Provider/Ground Crew Chief Advance Directive: Advance Directive/DNRno Advance Directive Information Givenpatient/family declined Albert Fall Screen: History of falling (immediate or previous)no (0) Secondary Diagnosisyes (15) Intravenous Therapy/ Heparin/Saline Lockyes (20) Gait/Transferringweak (10) Ambulatory Aidsnone/bedrest/nurse assist (0) Mental Statusoriented to own ability (0) Score: Low risk (<25). Moderate risk (25-44). High risk (>44).45 Albert InterventionsHIGH INTERVENTIONS *Low and Moderate Interventions Plus: * supervised toileting at all times Family Violence Screen: Are you or have you been threatened or abused physically, emotionally, or sexually by anyoneno Do you feel UNSAFE going back to the place where you are livingno Clinical assessment: Are there any apparent signs of injuries/behaviors that could be related to abuse/neglectno Social Service Consult for abuse/neglect needed this visitno Functional Screen: Functional Screen: In the recent/past 2-4 weeks, patient or family have noticedno issues that require a speech/language consult at this time AM-PAC- Basic Mobility/Daily Activity: Patient baseline bedboundno Turning from your back to your side while in a flat bed without using bedrailsa little Moving from lying on your back to sitting on the side of a flat bed without using bedrailsa little Moving to and from bed to chair (including a wheelchair)a little Standing up from a chair using your arms (e.g. wheelchair or bedside chair)a little To walk in hospital rooma lot Climbing 3-5 steps with railinga lot Basic Mobility - Total Score16 Learning Assessment (Patient): Patient is Able to be Assessed for Learningyes Factors Influencing Readiness to Learnacuteness of illness Factors that Impact Ability to Learnnone Devices/Methods Used to Communicatenone Learning Preferencesaudio Cultural Considerationsnone Developmental Considerationsnone Lutheran Considerationsnone Learning Assessment (Other Learner): Other learner availableno Depression Screen: During the past month, have you often been bothered by feeling down, depressed or hopelessno During the past month, have you often had little interest or pleasure in doing thingsno Have you had any thoughts of harming anyone elseno Sterling Suicide: Risk Screen Not Applicable/Able to Answerable to be screened In the Past Month: Have you wished you were or could go to sleep and not wake upno(1) In the Past Month: Have you had any actual thoughts of killing yourself no(1) Lifetime: Have you ever done, started to do, or prepared to do anything to end your lifeno(1) [place] Suicide Risknegative Adult Nutrition Screen: Have you recently lost weight without tryingyes; 2-13 lb Have you been eating poorly because of a decreased appetiteno Malnutrition Screening Tool Score1 Malnutrition Screening Tool RiskMST = 0 or 1 Not at risk. Eating well with little or no weight loss Nutrition Consult needed this visitno Can Patient Participate in Room Serviceyes Patient requires Paper Dishes/Plastic Utensilsno Pain Screen: Pain Scalenumerical 0-10 Pain Scale Educationteaching provided Current Pain Level9 = Severe Acceptable Pain Level0 = None Expression of Pain (nonverbal)verbalization Chronic Painyes Chronic Back pain locationlower Factors that Aggravate Painactivity Factors that Relieve Painmedications..., rest Medications that Relieve Painacetaminophen (Tylenol) Spiritual Screen: Are there any cultural, spiritual, confucianist practices/values/needs that are important for us to knowno CAGE: Is this an injured patient at a Trauma Center ([facility]/[place] /[place]): no Vaccinations: Vaccination - Influenza Vaccination Screen: Is it flu season (between and September 21)Yes Screening for identified contraindications to influenza vaccinationpatient already received vaccine this season Vaccination - Pneumonia Vaccination Screen: Patient has received a previous pneumonia vaccine:no/unknown... Immunocompetent persons with underlying chronic conditions or r (more content not included)... [facility] Daily Progress Note-Orthopae dicson 09-26-2021 Daily Progress Note-Orthopaedics Service: Orthopaedics Subjective Data: JAY CARR is a 61 year old Male who is Hospital Day # 1 and POD #0 for 1. XLIF L3/4, 4/5;2. Navigated percutaneous PSIF L3-5. Seen in PACU. Pain well controlled. Denies new N/T. Objective Data: Objective Information: Pain reported at 09/26 7:05: 0 = None Physical Exam by System: Constitutional: Patient well appearing, no acute distress resting in bed Eyes: PERRL, EOMI, clear sclera ENMT: MMM Head/Neck: Atraumatic Respiratory/Thorax: Breathing comfortably on the RA Cardiovascular: RRR Musculoskeletal: Spine Exam: Dressings CDI No bruising, swelling, or erythema L1: SILT L2: SILT Hip flexors 4/5 Left; 4/5 Right L3: SILT Knee extension 4/5 Left; 4/5 Right L4: SILT Tib Ant. (Dorsiflexion) 4/5 Left; 4/5 Right L5: SILT EHL 4/5 Left; 4/5 Right S1: SILT Planter flexion 4+/5 Left; 4+/5 Right Clonus: Absent Neurological: alert and oriented x3 Psychological: Appropriate mood Skin: No skin breaks Recent Lab Results: Results: Recent Arterial Blood Gas Results 09/26/2021 12:37 [id number] pH7.37 [id number] Base Excess0.8null Assessment and Plan: Code Status: Code StatusFull Code Assessment: 61 y/o male s/p L3/4-4/5 XLIF, L3-5 perc PSIF on 09/26/[address] Richardson, doing well. Plan: - WB status: WBAT, no excessive bending/twisting - DVT ppx: SCDs + Teds at all times while in bed, ambulation - Diet: Clear liquid diet, ADAT to regular - PHARMACEUTICAL PROCESS ENGINEER => PO pain medication per pain protocol - 24 hr perioperative abx: clinda x 4 doses - FEN: Continue NS at 100cc/hr; HLIV with good PO intake - Bowel Regimen: Colace, Dulcolax, Senna - PT/OT consult - Continue home medications - Discontinue goodrich catheter POD #1 - Decadron 4mg q6hr x4 doses Dispo: to VERONICA Steinberg M.D. Orthopaedic Surgery, PGY-2 Pager: [phone] Orthopaedic Spine Team Brannon Steinberg, PGY-2 [phone] - 1st call Orquidea Akbar, PGY-4 [phone] - 2nd call Available via Doc Halo After 5pm-7am, weekends, holidays please page [phone] for mental health professional resident for urgent questions/concerns. Attestation: Note Completion: I am a: Resident/Fellow Attending AttestationI saw and evaluated the patient. I personally obtained the meadows and critical portions of the history and physical exam or was physically present for meadows and critical portions performed by the resident/fellow. I reviewed the resident/fellows documentation and discussed the patient with the resident/fellow. I agree with the resident/fellows medical decision making as documented in the note. I personally evaluated the patient [id number] Electronic Signatures: Sal Richardson) (Signed 29-Sep-2021 11:38) Authored: Note Completion Co-Signer: Service, Subjective Data, Objective Data, Assessment and Plan, Note Completion Timothy Steinberg (Resident)) (Signed 26-Sep-2021 15:36) Authored: Service, Subjective Data, Objective Data, Assessment and Plan, Note Completion Last Updated: 29-Sep-2021 11:38 by Sal Richardson) [facility] Discharge Planning [id number] 0 09-26-2021 Discharge Planning Note2 Discharge Planning: Planned Dispositionhome Anticipated Discharge [id number] Discharge Planning 09/27/21 1335 Transitional Care Coordination Progress Note: TCC verified demo is correct. lives at home with . pcp audrey armstrong. received covid vaccine x2 and booster x1. feels safe to return home today Patient discussed during interdisciplinary rounds. Team members present: MD/BIT TRIPOLER, TCC, Plan per Medical/Surgical team: patient goodrich out. 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 MR for dc after working with PT OT today Status: inpatient Payor source: commercial Discharge disposition: home no needs per PT OT eval Potential Barriers: ADOD: today Calli Jones RN TCC 09/27/21 Patient discharged home with . Heather Foster RN Assessment: Discharge Planning Assessment [id number] Discharge Planning Assessment Completed bycalli jones RN TCC Primary Contact Name and Numberrae Becker [phone] Prior Level of FunctioningNA Lives Withspouse(1) Living Arrangementshouse(1) Stated Reason for Admissionback and hip pain(1) [facility] [facility] Falls/ Injury/ Need Assist with AmbulationNA DME Supplier Name/NumberNA Home Care Agency/Support ServicesNA Diabetic/Supplies NeededNA Hemodialysis ScheduleNA Resource/Environmental Concernsnone(1) [facility] Services Anticipated at Transitionnon(1) Readmission Within the Last 30 Daysno previous admission in last 30 days PCP Last Date [place] 2020 [employer] Home Who/HowWife takes to app and will be ride home today Medication Adherence/Afford/Obtainy es O2 LPMNA Nursing Checklist: Lines/Cathetersremoved/a ppropriate for next level of care Discharge Med Rec Reconciled with Loree Patient has Prescriptionsyes Transportation for Discharge Confirmedyes Follow up Reviewedyes Discharge Instructions Reviewed WithPatient Discharge Instructions Outcomeverbalize recall/understanding Discharge Instructions Review Completed with Patient/Family (diet, activity, pt instructions)yes Discharge Documentation: Discharge/Transfer Date/[id number] 17:00 Discharged Accompanied Byspouse Discharge Modewheelchair Transportation Methodprivate car Code StatusCode Status order at time of discharge: Full Code [place] DNR Form Sent with Patient and/or Familyn/a Valuables/Medications/Be longings [facility]es [facility] Electronic Signatures: HEDY SHEPPARDRN) (Signed 26-Sep-2021 21:59) Authored: Discharge Planning, Assessment, Discharge Documentation Heather Foster) (Signed 27-Sep-2021 17:12) Authored: Discharge Planning, Nursing Checklist, Discharge Documentation Calli Jones) (Signed 27-Sep-2021 13:35) Authored: Discharge Planning, Assessment Last Updated: 27-Sep-2021 17:12 by Cristian, Heather (RN) References: 1. Data Referenced From Patient Profile - Adult v2 26-Sep-2021 21:07 [facility] Discharge [id number] Discharge Profile2 Discharge Orders: Anticipated Discharge Date: Anticipated Discharge [id number] Problem List: Additional Dx: Lumbar radicular pain: Catalog Name: Radiculopathy, lumbar region Significant Events: right knee replacement: Past Surgical History biopsy on back: Past Surgical History left foot: Past Surgical History right foot: Past Surgical History covid in April 2021: Past Medical History lupus: Past Medical History GERD: Past Medical History HTN: Past Medical History Hospital Providers: Provider RoleProvider Name Audrey Colindres Nicholas DNAR: Code Status at Discharge: Full Code Activity: activity as tolerated PROGRESSIVE WALKING AT LEAST 2X/DAY. May not shower NO SHOWERING UNTIL ANTONIO REMOVED IN 3WKS. May not return to school/work until follow-up visit with Dr. Richardson Instructions: May not drive while taking narcotics. No pushing, pulling, or lifting objects greater than 10 pounds. Weight-bearing Instructions: full weight bearing. Other activity instructions: NO EXCESSIVE BENDING/TWISTING, NO HEAVY HOUSE/YARD WORK. Diet: Dietresume normal diet Wound Care 1: Wound SiteLateral/ Flank Wound Typesurgical incision Change Dressingdaily UNTIL NO LONGER DRAINING, THEN YOU CAN LEAVE THE DRSG. OFF Cover Withabdominal dressing Tape Withpaper tape Instructionsno lotions, creams, or tub soaks Other InstructionsPLEASE HAVE ANTONIO REMOVED IN 3 WKS. AT [facility] [address] [facility] 5TH FLOOR ON 10/18/2021 AT 0930 WITH KENTON SANTIAGO. REHAB FACILITIES OR HOME CARE MAY REMOVE ANTONIO OR SUTURES. Wound Care 2: Wound SiteBACK (Lumbar Spine) Wound Typesurgical incision Change Dressingdaily Cleanse Withsoap and water Cover Withabdominal dressing Tape Withpaper tape Instructionsno lotions, creams, or tub soaks Other InstructionsPLEASE HAVE ANTONIO REMOVED IN 3 WKS. AT [facility] [address] [facility] 5TH FLOOR ON 10/18/2021 AT 0930 WITH KENTON SANTIAGO. REHAB FACILITIES OR HOME CARE MAY REMOVE ANTONIO OR SUTURES. Additional Orders: Additional Instructions MAY USE HEAT OR ICE TO YOUR BACK AND OR INCISIONS NEEDED FOR COMFORT NO NSAIDS (ADVIL, IBUPROFEN, ALEVE... ETC.) FOR 10-12 WEEKS, THEY HAVE A BAD EFFECT ON HEALING OF FUSION. Call Provider If (Homegoing Patients): Breathing faster than normal. Temperature is greater than 102 degrees. Chills. Urinating less than 4 times per day. Acting very sleepy and difficult to awaken. Vomiting (throwing up) and not able to eat or drink for 12 hours. 3 or more loose, watery bowel movements in 24 hours (diarrhea). Any new concerning symptoms. ANY CONCERNS OVER APPEARANCE OF INCISION PLEASE CALL IN ADVANCE WHEN RUNNING LOW ON PAIN MEDS. A PRESCRIPTION EITHER WILL NEED TO BE ELECTRONICALLY SENT OR PICKED UP IN ONE OF THE OFFICES. Hospital Course (Home Care/Gold Form): Hospital Course: Hospital Course: include significant abnormal lab values 61 year-old male who presented with lumbar stenosis. Patient is now s/p L3/4-4/5 XLIF, L3-5 PSIF on 09/[address] Richardson. On the day of surgery, patient was identified in the pre-operative holding area and agreeable to proceed with surgery. Written consent was obtained. Please see operative note for further details of this procedure. Patient received 24 hours of magy-operative IV antibiotics and 24 hours of IV steroids. Patient recovered in the PACU before transfer to a regular nursing floor. Patient was initially started on dilaudid PHARMACEUTICAL PROCESS ENGINEER x24 hours and then transitioned to an oral regimen consisting of oxycodone and tylenol for pain control. Goodrich catheter was removed on POD1. Surgical drain output was monitored every 8 hours and the drain removed when output had appropriately decreased. Physical therapy recommended continued recovery at home with continued physical therapy and wound care. On the day of discharge, patient was afebrile with stable vital signs. Patient was neurovascularly intact at time of discharge. Prescription for oxycodone 5mg every 6 hours (# 42) provided due to exceedingly painful nature of surgical procedure. Patients undergoing these operations typically use 1-2 pills q4-6 hours for the first 1-2 weeks. The use will be monitored postoperatively by Dr. Richardson, and weaned appropriately during the recovery period. Patient will follow-up with Dr. Richardson in 3 weeks for post-operative visit.. Provider FINAL REVIEW of Orders: Final Review: Final Review of Medication Reconciliation and Orders Completedby Physician Reviewing ProviderTimothy Steinberg MD (Resident) at 27-Sep-2021 13:45:17 Appointments: Follow-Up Appointment 01: Physician/Dept/ServiceDr Praveena Richardson/ Orthopaedic Surgery/ Spine Reason for ReferralPostoperative Follow-Up Appointment Call to Schedule in6 weeks, PLEASE CALL [phone] TO SCHEDULE YOUR AMBER (more content not included)... [facility] Operative Reports - [facility] Operative Reports - [facility] PREOPERATIVE DIAGNOSIS: Spinal stenosis and spondylolisthesis L3-4 and L4-5 in a patient with unrelenting claudication and radiculopathy. POSTOPERATIVE DIAGNOSIS: Spinal stenosis and spondylolisthesis L3-4 and L4-5 in a patient with unrelenting claudication and radiculopathy. OPERATION/PROCEDURE: Anterior lumbar interbody fusion by extreme lateral approach at L3-4 and L4-5 with use of interbody cage device x2. SURGEON: Sal Richardson MD. FARMWORK[employer](S): hospital administrative assistant: Cb Casanova PA-C. Second certified medical assistant: Brannon Steinberg, second resident. ANESTHESIA: ESTIMATED BLOOD LOSS: Minimal. URINE OUTPUT: 150 cc. IV FLUIDS: 800 cc of lactated Ringer's solution. FINDINGS: Appropriate placement of the cage and instrumentation at L3-4 and L4-5 with excellent distraction. COMPLICATIONS: None. INDICATIONS FOR SURGERY: The patient is a 61-year-old man with severe unrelenting back pain with radicular symptoms into the lower extremities. He has weakness and numbness in legs with great difficulty walking and standing. He was found to have spinal stenosis from L3-4 and L4-5 with spondylolisthesis at L4-5, retrolisthesis at L3-4. He failed to improve despite nonoperative care. He was appropriately consented for and brought to the operating room for the above procedures on 09/26/2021. SURGEON'S NOTE: The patient was brought to the operating room and laid supine on the bed. General endotracheal anesthesia was induced. LEAH hose and SCDs were placed. Goodrich catheter was placed. I then placed the patient in the lateral decubitus position with the left side up. The patient was taped in appropriate position. All bony prominences were well padded. Spinal cord monitoring leads were placed, and baseline signals were obtained. We then manipulated the bed to get good exposure, rechecked signals, which were found to be unchanged. C-arm was now used to antwan out our incision. The lumboabdominal region was then used to prep and drape out the level of the abdominal area. Once lumboabdominal region was then prepped and draped out in the usual sterile fashion, we first made our posterior incision. A knife was carried out through skin and subcutaneous tissue to the lumbodorsal fascia. Lumbodorsal fascia was then split. We entered the retroperitoneal space bluntly with Concepcion. Once we entered into the retroperitoneal space, we swept any adhesions off the anterior incisions. We then made our anterior incision. A knife was carried out through skin and subcutaneous tissue, and we dissected down to the fascia. The fascia was split. We bluntly dissected through the muscle fibers onto our finger. Two-finger technique was used to place the first dilator onto the psoas muscle overlying the disk space. We stimulated in all directions finding no stimulation up to 9 milliamps. We then penetrated the disk space with the dilator, stimulated once again finding no stimulation up to 9 milliamps. Pin was then placed into the disk space. We sequentially stimulated with each sequential dilator. The retractor blade system was then placed over the last dilator and hooked up to the arm. We retracted the blades, and took AP and lateral C-arm shots confirming that the retractor position was appropriate. With retractor system blades confirm to be in appropriate position, we then stimulated throughout our field finding no stimulation of the nerve roots up to 9 milliamps once again. We clearly had a good feel of our disk space free of muscles at this point. A 15 blade was used to perform annulotomy. Pituitary rongeur was used to perform annulotomy and nuclectomy. Pituitary rongeur, Kerrison rongeur, curettes, box cutters, piles, ellen were all used to remove all the cartilaginous material from the disk space. We also used ring curettes to remove any residual cartilage on the endplates as well. With disk completely cleaned out, we then sized by using appropriate-sized trials. Once the final trial was then placed, we took final AP and lateral C-arm shots confirming appropriate position. The trial was now removed, and we placed the implant, filled with cellular graft into the interspace under fluoroscopic guidance. We had excellent fit with the cage. We took AP and lateral C-arm shots confirming excellent distraction across the interspaces and good indirect decompression. The procedure was repeated at L3-4 and L4-5. With the cages in place, and we took final AP and lateral C-arm shots confirming appropriate placement of the cages at both levels. We had excellent distraction at both levels. The wounds were thoroughly washed and dried. Deep layers were repaired using 0 Vicryl [id number] sutures, deep dermal layer was repaired using 2-0 Vicryl sutures, and the skin was repaired using antonio. Dry sterile dressing was ap (more content not included)... [facility] Operative Reports - [facility] PREOPERATIVE DIAGNOSIS: POSTOPERATIVE DIAGNOSIS: OPERATION/PROCEDURE: Posterior spinal fusion L3 to L5 with pedicle screw fixation. The patient was already in the operating room after the anterior procedure. The patient was then placed in the prone position on the [place] frame. Spinal cord monitoring leads were rechecked and baseline signals were rechecked. The patient's posterior lumbar region was then prepped and draped out in usual sterile fashion. First, I made a small incision about the posterior superior iliac spine, and dissected down to bone bluntly. I placed the pin into the posterior superior iliac spine and placed navigation array. We were able to use navigation to get O-arm spin. Under the navigation, I placed pedicle screws bilaterally from L3 to L5. Small incisions were made, and then we placed drill followed by awl and pedicle screw into the pedicles. Once screws were placed, I stimulated each of the screws finding no stimulation up to 30 milliamps. The screws were then hooked up to rods on each side with the outer caps were placed and finally tightened. I did place bone graft about the posterolateral elements to complete the instrumented fusion. The wounds were thoroughly washed and dried. Deep layers were repaired using 0 Vicryl pqurqz-yq-folue sutures, deep dermal layer was repaired using 2-0 Vicryl sutures, and the skin was repaired using antonio. Dry sterile dressing was applied. The patient was brought to the recovery room, extubated, in stable condition. There were no complications encountered during the entirety of this case. I was present and scrubbed in during the entirety of this case. All spinal cord monitoring signals were stable throughout the entirety of this case during instrumentation and fusion. SURGEON: Sal Richardson MD. FARMWORK[employer](S): ANESTHESIA: This is part 2 of a two-staged procedure. Part 1 was dictated in dictation #[id number]. Refer to dictation #[id number] for all details regarding the first part of the surgery. Sal Richardson MD EST EST DICTATION NUMBER: [id number] INTERNAL JOB NUMBER: [id number] CC: Sal Richardson MD, Electronic Signatures: Sal Richardson) (Signed on 03-Oct-2021 12:03) Authored Unsigned, Draft (SYS GENERATED) (Entered on 30-Sep-2021 07:37) Entered Last Updated: 03-Oct-2021 12:03 by Sal Richardson) [facility] Order Reconciliationon 09-26 Order Reconciliation Page 1 Admission Reconciliation Document Reconciliation Type: Admission from OR requested on behalf of Timothy Steinberg (Resident) done by Timothy Steinberg (Resident)) Admission from OR - Reconciliation: 26-Sep-2021 18:10 by: Timothy Steinberg (Resident)) Home MedicationsEnteredLast Dose TakenReconciled with current Order Reconciliation Comment/ Additional Information hydroxychloroquine 200 mg oral tablet 1 tab(s) oral 2 times a [id number]-Sep-2021 Hydroxychloroquine - PEDS Tablet (PLAQUENIL)DOSE = 200 mg Oral 2 Times a Dayhydroxychloroquine 200 mg oral tablet continued as the inpatient order Hydroxychloroquine - PEDS irbesartan 300 mg oral tablet 1 tab(s) oral once a [id number] Reviewed and Held methocarbamol 500 mg oral tablet 2 tab(s) oral every 8 [id number]-Sep-2021 Reviewed and Held NIFEdipine 30 mg oral tablet, extended release 1 tab(s) oral once a day [id number] NIFEdipine (PROCARDIA XL) Extended Release Tablet, Extended ReleaseDOSE = 30 mg Oral DailyNIFEdipine 30 mg oral tablet, extended release continued as the inpatient order NIFEdipine (PROCARDIA XL) Extended Release pantoprazole 40 mg oral delayed release tablet 1 tab(s) oral once a day [id number] Pantoprazole Enteric Coated Tablet (PROTONIX)DOSE = 40 mg Oral Dailypantoprazole 40 mg oral delayed release tablet continued as the inpatient order Pantoprazole tiZANidine 4 mg oral tablet 1 oral [id number] Reviewed and Held Vitamin C 1 3 times a [id number] 2 Reviewed and Held Vitamin D3 1 3 times a [id number] 2 Reviewed and Held Zinc 140 mg (as elemental zinc 50 mg) oral tablet 1 tab(s) oral once a day Reviewed and Held Additional Current Orders Acetaminophen Tablet (TYLENOL)DOSE = 650 mg Oral Every 4 Hours Clindamycin 900 mg IVPB/ Premixed Soln 50 mL (CLEOCIN)Every 6 HoursRecommended Infusion Time: 60 minute(s)Stop After 4 Doses dexAMETHasone Injectable (DECADRON)DOSE = 4 mg IntraVenous Push Every 6 HoursStop After 4 DosesClinician Notes: Push over 1 minute Docusate Capsule (COLACE)DOSE = 100 mg Oral 2 Times a Day, PRN Constipation HYDROmorphone Injectable (DILAUDID)DOSE = 0.25 mg IntraVenous Push Every 5 Minutes, PRN Pain - Mod (4-6) (PACU)Clinician Notes: Magy-operative order ONLYMax total of 4 mg regardless of dose. HYDROmorphone Injectable (DILAUDID)DOSE = 0.5 mg IntraVenous Push Every 5 Minutes, PRN Pain - Severe (7-10) (PACU)Clinician Notes: Magy-operative order ONLYMax total of 4 mg regardless of dose. HYDROmorphone PHARMACEUTICAL PROCESS ENGINEER 25 mg/ NaCL 0.9% 50 mL (DILAUDID IV PHARMACEUTICAL PROCESS ENGINEER)DEMAND/ PHARMACEUTICAL PROCESS ENGINEER Dose = 0.2 mgDELAY/ Lockout Time Period = 6 minutesOne Hour Dose Limit = 2.6 mg/hrBREAKTHROUGH Dose: Nurse May Administer 0.6 mg Every 1 Hour PRNIf patient has received 3 Demand Doses in the Last Hour and For Pain Score > 4 out of 10 Lactated Ringers Infusion IV Bag Volume = 1,000 mL Run at: 100 mL/hr IntraVenous Clinician Notes: Magy-operative order ONLY Lactated Ringers Infusion IV Bag Volume = 1,000 mL Run at: 100 mL/hr IntraVenous Clinician Notes: Magy-operative order ONLY Methocarbamol Tablet (ROBAXIN)DOSE = 1,000 mg Oral Every 8 Hours, PRN muscle spasms Naloxone Injectable (NARCAN)DOSE = 0.2 mg IntraVenous Push Once, PRN patient is unarousable, and respiratory rate lessClinician Notes: HOLD PHARMACEUTICAL PROCESS ENGINEER Infusion and notify H.O. immediately Ondansetron Injectable (ZOFRAN)DOSE = 4 mg IntraVenous Push Every 6 Hours, PRN Nausea & Vomiting Ondansetron Injectable (ZOFRAN)DOSE = 4 mg IntraVenous Push Once, PRN PONV, first lineClinician Notes: Magy-operative order ONLY Polyethylene Glycol Powder for Reconstitution (MIRALAX)DOSE = 17 gram(s) Oral Daily Sennosides Tablet (SENOKOT)DOSE = 1 tablet(s) Oral DailyClinician Notes: Every 24 hours: Do NOT use with Bisacodyl. [facility] Patient Profile - Adult v2on 09-26-2021 Patient Profile - Adult v2 Profile: Initial Info: How to be AddressedPaul(1) Spoken Language PreferredEnglish (1) Stated Reason for Admissionback and hip pain Wants Family/Rep Notified of Admissionno Notify PCPdo not notify PCP Informed of Patient Visiting Rightsyes [facility] Patient Belongingsremains with patient Patient Belongings Remaining with Patientcell phone/electronics Medications Brought to Hospitalyes Medication Dispositionbedside General Health: Blood Avoidance/Restrictionsno ne(1) Previous Transfusion Reactionno(1) Weight in kg0.9 kilogram(s)(2) Weight in lbs1.9 pound(s) Weight Methodactual (measured) Scale Typebed Height in cm175.2 centimeter(s)(2) Height in feet5 feet Height in inches8.98 inch(es) Height Methodstated BMI (kg/m2)0.293 square meter RSP Based Care: How would you like to participate in your jerson/a What is the number one concern for you during this hospitalizationpain What is the most important thing we can do to support you during this hospitalizationnone Is there anything we need to know to best care for younonee Substance: Smoking Statusnever smoker Alcohol Usedenies Drug Usedenies Drug 2 Usedenies Health Mgmt: Symptoms/Conditions Managed at Homechronic pain Chronic Pain Aggravating Factorsmovement Chronic Pain Management Strategiesmedication therapy; weight management Chronic Pain Managementmanaged Relationship/Environ: Resource/Environmental Concernsnone Primary Source of Support/Comfortspouse Lives Withspouse Living Arrangementshouse Services Anticipated at Transitionnone Anticipated Transition Tohome Significant IndicatorsComplete Information Review: Allergies, Home Meds and Significant Events have been Reviewed and Verified with Patient/Familyyes ALLERGY, INTOLERANCE, ADVERSE EVENT: Allergies: penicillin: Drug, Rash, Active Electronic Signatures: HEDY SHEPPARD (ALICE) (Signed 26-Sep-2021 21:13) Authored: Initial Info, General Health, RSP Based Care, Substance, Health Mgmt, Relationship/Environ, Additional Information Last Updated: 26-Sep-2021 21:13 by HEDY SHEPPARD (ALICE) References: 1. Data Referenced From Patient Profile - Preop v3 26-Sep-2021 07:09 2. Data Referenced From 1. Vital Signs 26-Sep-2021 07:09 Normal [facility] Patient Profile - Preop v3on 09-26-2021 Patient Profile - Preop v3 Patient Profile - Preop: Initial Info: Patient DemographicsName: JAY CARR Date: 1960 Address: [address] [place] [address], [place], [address] Primary Phone [phone] How to be AddressedPaul Spoken Language PreferredEnglish Source of Informationpatient Stated Reason for Admissionlower back surgery Primary Contact Name and Numberwife Limitations on Visitors/Phone Callsnone Medications Brought to Hospitalno General Health: Weight in kg0.9 kilogram(s) Weight in lbs1.9 pound(s) Weight Methodactual (measured) Scale Typestanding Height in feet5 feet Height in inches8.98 inch(es) Height in cm175.2 centimeter(s) Height Methodstated BMI (kg/m2)0.293 square meter Patient or Family Member Reaction to Anesthesiano previous reaction Blood Avoidance/Restrictionsno ne Previous Transfusion Reactionno Health Mgmt: Symptoms/Conditions Managed at Homesee significant events Barriers to Managing Healthnone Relationship/Environ: Lives Withspouse Living Arrangementshouse Resource/Environmental Concernsnone Anticipated [facility] Services Anticipated at Transitionnone Tobacco Use: Tobacco Useno Pre-op Checklist: Arrival [id number] NPOyes ID Band On Patientpatient ID (name), allergy Consent Signedpending H&P Completepending Anesthesia Assessment Completedpending EKG Performednot ordered Preop Antibioticsnot ordered Chlorhexadine Bath Givencompleted at home Nasal Antiseptic Appliednot applicable Soap and Water Bath the Night Before Surgeryno Surgical Site Infection Preventionno Pain Scales and Managementno Additional Information: Information Review: Allergies, Home Meds and Significant Events have been Reviewed and Verified with Patient/Familyyes Allergy, Intolerance, Adverse Event: Allergies: penicillin: Drug, Rash, Active Electronic Signatures: Maisha Meyer (ALICE) (Signed 26-Sep-2021 07:11) Authored: Initial Info, General Health, Health Mgmt, Relationship/Environ, Tobacco Use, Pre-op Checklist, Additional Information Last Updated: 26-Sep-2021 07:11 by Maisha Meyer (ALICE) Normal [facility] CORONAVIRUS 2019, SCREEN ASY MPTOMATICon 09-25-2021 SARS-CoV-2 (COVID-19) RNA LU+probe Ql (Unsp spec) Not detected Normal Not Detected [facility] Comment on above: Result Comment: . This assay is designed to detect the N, ORF1ab and/or S genes of SARS-CoV-2 via nucleic acid amplification. A Negative (NOT DETECTED) result does not preclude 2019-nCoV infection since the adequacy of sample collection and/or low viral burden may result in presence of viral nucleic acids below the clinical sensitivity of this test method. Negative (NOT DETECTED) result should not be used as the sole basis for treatment or other patient management decisions. Rather negative results should be combined with clinical observations, patient history, and epidemiological information to make patient management decisions. Fact sheet for providers: https://www.fda.gov/media/500318/download Fact sheet for patients: https://www.fda.gov/media/872136/download This test has received FDA Emergency Use Authorization (EUA) and has been verified by [facility] ([facility]). This test is only authorized for the duration of time that circumstances exist to justify the authorization of the emergency use of in vitro diagnostic tests for the detection of SARS-CoV-2 virus and/or diagnosis of COVID-19 infection under section 564(b)(1) of the Act, 21 U.S.C. 360bbb-3(b)(1), unless the authorization is terminated or revoked sooner. [facility] is certified under CLIA-88 as qualified to perform high complexity testing. Testing is performed in the [facility] laboratories located at [address] [place] [address]. Performed By: #### U ARFX #### [place] [address] Lab Specimen Source Nasal, Nasopharyngeal Normal [facility] Comment on above: Performed By: #### U ARFX #### [address] [place] [address] Covid 19 Resultson 2 SARS-CoV-2 (COVID-19) RNA LU+probe Ql (Unsp spec) NEGATIVE COVID-19 Test Coronaviruses are common world-wide and are the cause of many common colds. SARS-COV2 is a new coronavirus that began circulating worldwide in 2019 so we are calling it COVID-19. It has been estimated that four out of five patients with COVID-19 will recover at home without the need for medical attention. Symptoms of COVID-19 may include cough, fever, shortness of breath, loss of taste or smell and other flu-like symptoms including chills, sore muscles, sore throat, and headache. Severe illness is more common in older people and people with other health problems such as high blood pressure, obesity, and immune system problems. If the test is positive, you have COVID-19. You will be contacted by the ordering physicians office and instructed to remain on home isolation, in accordance with CDC guidelines. You may also be contacted by the [facility] to see if any of your close contacts may have been exposed to the virus and need to quarantine. If the test is negative, you likely do not have COVID-19 at this time, but you still may have a different illness that can spread to other people (like Influenza, or the Flu) and could still be at risk for getting COVID-19. We recommend that you stay away from other people to limit the spread of illness until your symptoms are improving and you are fever-free for 24 hours without the use of fever lowering medications such as acetaminophen or ibuprofen. No test is 100% accurate so if you are still concerned you may have COVID-19, talk to your doctor about the need to continue to stay away from others. Medicines Unless your provider told you not to use the following: Acetaminophen (Tylenol and others) is generally safe. Anti-inflammatory medications, such as Ibuprofen (Advil or Motrin) or Naproxen (Aleve) can also be used. Vkae-jqg-xzqkqfc cough and cold medicines can be used according to the instructions on the package. Some wend-qsv-tbsfsxe medicines also contain acetaminophen. Make sure you are not taking more than your recommended dose. For those not hospitalized, there is no specific treatment available for this illness. Antibiotics do not treat Coronaviruses. Follow-Up Follow up with your doctor by scheduling a virtual visit or consider follow-up at one of our urgent care fever clinics. If you are having difficulty breathing, or are very weak and having difficulty standing, this is a medical emergency. Call 911 or have someone take you to the nearest emergency room immediately. If possible, wear a facemask. Additional guidance from the CDC for patients who tested POSITIVE for COVID-19 How to isolate: Isolate yourself in a specific room at home and limit your contact with others. Use a separate bathroom from other members of the household, when possible. Leave home only to get essential medical care. Do not go to work, school or public areas. Avoid using public transportation, ride-sharing, or taxis. Restrict contact with pets and other animals. If you must care for your pet or be around animals while you are sick, wash your hands before and after your interaction and wear a facemask. Make sure that shared spaces in the home have good airflow, such as by an air conditioner or an opened window, weather permitting. Personal Hygiene Procedures: Wear a face mask when in the same room as other people or pets. If a face mask interferes with your breathing, others should wear a mask when sharing space with you. Frequent hand-washing: wash your hands with soap and water for at least 20 seconds. If soap and water are not available, use alcohol-based hand lieutenant firefighter. Avoid touching your eyes, nose, and mouth with unwashed hands. Household Hygiene Procedures: Avoid sharing personal household items such as dishes, glassware, cups, eating utensils, towels or bedding with other people or pets in your home. After use, these items should be washed with soap and hot water. Disinfect all high-touch surfaces every day with antibacterial cleaning solutions such as Lysol wipes, bleach, cleansers, etc. High-touch surfaces include tabletops, doorknobs, bathroom fixtures, toilets, phones, keyboards, tablets and bedside tables. Immediately clean any surfaces that may have blood, poop or body fluids on them, using antibacterial cleaning solutions such as Lysol wipes, bleach, cleansers, etc. If clothing or bedding come into contact with blood, poop or body fluids, they should be washed immediately. Follow the directions on the laundry detergent and clothing labels but hot water is recommended when possible. Stopping home isolation precautions: If possible, consult your doctor before stopping home isolation precautions. According to the CDC, you can discontinue home isolation precautions when you have met both of these criteria: Your fever and respiratory symptoms have been gone for 24 mary (more content not included)... Normal [facility] COAGULATION SCREENon 022 aPTT Coag (Bld) [Time] 34 s Normal 26 - 39 [facility] Comment on above: Result Comment: THE APTT IS NO LONGER USED FOR MONITORING UNFRACTIONATED HEPARIN THERAPY. FOR MONITORING HEPARIN THERAPY, USE THE HEPARIN ASSAY. Performed By: #### U ARFX #### [facility] [address] [place] [address] PT Coag (PPP) [Time] 11.1 s Normal 9.8 - 13.4 [facility] Comment on above: Performed By: #### U ARFX #### [facility] [address] [place] [address] PT, INR 1.0 Normal 0.9 - 1.1 [facility] Comment on above: Performed By: #### U ARFX #### [facility] [address] [place] [address] Laboratory - Blood bankon ABO group Nom (Bld) O [facility] Work Phone: Blood group antibody screen Ql Negative [facility] Work Phone: Rh immune globulin screen (Bld) [Interp] Negative [facility] Work Phone: Laboratory - Coagulationon 0 09-19-2021 aPTT Coag (PPP) [Time] 34 s 26 - 39 [facility] Work Phone: Comment on above: THE APTT IS NO LONGE R USED FOR MONITORING UNFRACTIONATED HEPARIN THERAPY. FOR MONITORING HEPARIN THERAPY, USE THE HEPARIN ASSAY. INR Coag (PPP) [Relative time] 1.0 {INR} 0.9 - 1.1 [facility] Work Phone: PT Coag (PPP) [Time] 11.1 s 9.8 - 13.4 [facility] Work Phone: STAPH/MRSA SCREENon 09-20-19 STAPH/MRSA SCREEN PATIENT: JAY CARR LOCATION: [facility] STOLL#: [id number] : 62 AGE: SEX: M ORDERED BY: SAL RICHARDSON SOURCE: ANTERIOR NARES COLLECTED: 09/19/21 10:10 ANTIBIOTICS AT BRAEDEN.: RECEIVED : 09/19/21 12:47 SITE: Nasal R E S U L T S STAPH/MRSA SCREEN FINAL 09/20/21 13:57 NO Staphylococcus aureus ISOLATED. Normal [facility] Comment on above: Performed By: #### S TAPH #### [facility] [address] [place] [address] TYPE + SCREENon 09-19-2021 ABO TYPE O Normal [facility] Comment on above: Performed By: #### T +S #### [facility] [address] [place] [address] RH TYPE Negative Normal [facility] Comment on above: Performed By: #### T +S #### [facility] [address] [place] [address] URINALYSISon 09-19-2021 Appearance (U) Canceled Normal [facility] Comment on above: Order Comment: TEST URINALYSIS WAS CANCELLED, 09/19/2021 12:02 DUPLICATE ORDER. Performed By: #### U A #### [facility] [address] [place] [address] ASCORBIC ACID Canceled Normal [facility] Comment on above: Order Comment: TEST URINALYSIS WAS CANCELLED, 09/19/2021 12:02 DUPLICATE ORDER. Result Comment: Conc entrations > = 20 mg/dL of ascorbic acid can be expected to cause strong interference in the reactions testing for glucose, nitrite and blood. It is recommended to discontinue Vitamin C administration and retest in 10 hours. Performed By: #### U A #### [facility] [address] [place] [address] Bilirubin Ql (U) Canceled Normal [facility] Comment on above: Order Comment: TEST URINALYSIS WAS CANCELLED, 09/19/2021 12:02 DUPLICATE ORDER. Performed By: #### U A #### [facility] [address] [place] [address] Color (U) Canceled Normal [facility] Comment on above: Order Comment: TEST URINALYSIS WAS CANCELLED, 09/19/2021 12:02 DUPLICATE ORDER. Performed By: #### U A #### [facility] [address] [place] [address] Glucose Ql (U) Canceled Normal [facility] Comment on above: Order Comment: TEST URINALYSIS WAS CANCELLED, 09/19/2021 12:02 DUPLICATE ORDER. Performed By: #### U A #### [facility] [address] [place] [address] Hemoglobin Ql (U) Canceled Normal [facility] Comment on above: Order Comment: TEST URINALYSIS WAS CANCELLED, 09/19/2021 12:02 DUPLICATE ORDER. Performed By: #### U A #### [facility] [address] [place] [address] Ketones Ql (U) Canceled Normal [facility] Comment on above: Order Comment: TEST URINALYSIS WAS CANCELLED, 09/19/2021 12:02 DUPLICATE ORDER. Performed By: #### U A #### [facility] [address] [place] [address] Leukocyte esterase Test strip Ql (U) Canceled Normal [facility] Comment on above: Order Comment: TEST URINALYSIS WAS CANCELLED, 09/19/2021 12:02 DUPLICATE ORDER. Performed By: #### U A #### [facility] [address] [place] [address] Nitrite Ql (U) Canceled Normal [facility] Comment on above: Order Comment: TEST URINALYSIS WAS CANCELLED, 09/19/2021 12:02 DUPLICATE ORDER. Performed By: #### U A #### [facility] [address] [place] [address] pH Canceled Normal [facility] Comment on above: Order Comment: TEST URINALYSIS WAS CANCELLED, 09/19/2021 12:02 DUPLICATE ORDER. Performed By: #### U A #### [facility] [address] [place] [address] Protein Ql (U) Canceled Normal [facility] Comment on above: Order Comment: TEST URINALYSIS WAS CANCELLED, 09/19/2021 12:02 DUPLICATE ORDER. Performed By: #### U A #### [facility] [address] [place] [address] Specific gravity (U) [Rel density] Canceled Normal [facility] Comment on above: Order Comment: TEST URINALYSIS WAS CANCELLED, 09/19/2021 12:02 DUPLICATE ORDER. Performed By: #### U A #### [facility] [address] [place] [address] UROBILINOGEN Canceled Normal [facility] Comment on above: Order Comment: TEST URINALYSIS WAS CANCELLED, 09/19/2021 12:02 DUPLICATE ORDER. Performed By: #### U A #### [facility] [address] [place] [address] URINALYSIS WITH CULTURE IF I NDICATEDon 09-19-2021 Appearance (U) CLEAR Normal CLEAR [facility] Comment on above: Performed By: #### U ARFX #### [facility] [address] [place] [address] Bilirubin Ql (U) Negative Normal NEGATIVE [facility] Comment on above: Performed By: #### U ARFX #### [facility] [address] [place] [address] Color (U) YELLOW Normal STRAW,YELL OW [facility] Comment on above: Performed By: #### U ARFX #### [facility] [address] [place] [address] Glucose Ql (U) Negative Normal NEGATIVE [facility] Comment on above: Performed By: #### U ARFX #### [facility] [address] [place] [address] Hemoglobin Ql (U) Negative Normal NEGATIVE [facility] Comment on above: Performed By: #### U ARFX #### [facility] [address] [place] [address] Ketones Ql (U) Negative Normal NEGATIVE [facility] Comment on above: Performed By: #### U ARFX #### [facility] [address] [place] [address] Leukocyte esterase Test strip Ql (U) Negative Normal NEGATIVE [facility] Comment on above: Performed By: #### U ARFX #### [facility] [address] [place] [address] Nitrite Ql (U) Negative Normal NEGATIVE [facility] Comment on above: Performed By: #### U ARFX #### [facility] [address] [place] [address] pH (U) 6.0 [pH] Normal 5.0 - 8.0 [facility] Comment on above: Performed By: #### U ARFX #### [facility] [address] [place] [address] Protein Ql (U) Negative Normal NEGATIVE [facility] Comment on above: Performed By: #### U ARFX #### [facility] [address] [place] [address] Specific gravity (U) [Rel density] 1.016 Normal 1.005 - 1.035 [facility] Comment on above: Performed By: #### U ARFX #### [facility] [address] [place] [address] Urobilinogen (U) [Mass/Vol] mg/dL Normal 0.0 - 1.9 [facility] Comment on above: Performed By: #### U ARFX #### [place] [address] [place] [address] Color (U) YELLOW See Below [facility] Work Phone: Comment on above: Reference Range: STR AW,YELLOW Glucose Ql (U) Negative NEGATIVE [facility] Work Phone: Ketones Ql (U) Negative NEGATIVE [facility] Work Phone: Leukocyte esterase Test strip Ql (U) Negative NEGATIVE [facility] Work Phone: pH (U) 6.0 [pH] 5.0 - 8.0 [facility] Work Phone: Protein (U) [Mass/Vol] Negative NEGATIVE [facility] Work Phone: RBC (U) [#/Vol] Negative NEGATIVE [facility] Work Phone: Specific gravity (U) [Rel density] 1.016 1 See Below [facility] Work Phone: Comment on above: Reference Range: 1.0 05 - 1.035 URINALYSIS WITH CULTURE IF INDICATED Negative NEGATIVE [facility] Work Phone: URINALYSIS WITH CULTURE IF INDICATED <2.0 0.0 - 1.9 [facility] Work Phone: URINALYSIS WITH CULTURE IF INDICATED CLEAR CLEAR [facility] Work Phone: Urinalysison 09-19-2021 Appearance (U) Canceled [facility] Work Phone: Color (U) Canceled [facility] Work Phone: Glucose Ql (U) Canceled [facility] Work Phone: Ketones Ql (U) Canceled [facility] Work Phone: Leukocyte esterase Test strip Ql (U) Canceled [facility] Work Phone: Protein (U) [Mass/Vol] Canceled [facility] Work Phone: RBC (U) [#/Vol] Canceled [facility] Work Phone: Specific gravity (U) [Rel density] Canceled [facility] Work Phone: Urinalysis Canceled [facility] Work Phone: Comment on above: Concentrations > = 2 0 mg/dL of ascorbic acid can be expected to cause strong interference in the reactions testing for glucose, nitrite and blood. It is recommended to discontinue Vitamin C administration and retest in 10 hours. Office Visiton 03-02-2022 Follow-up visit Diagnoses/Problems Spondylolisthesis, lumbar region (738.4) (M43.16) Lumbar stenosis with neurogenic claudication (724.03) (M48.062) Patient Discussion/Summary The patient returns today. He is status post cervical spine surgery on 06/21/2021. He underwent anterior cervical decompression and fusion from C5-C7. From that standpoint he has done great. The severe symptoms in his upper extremities and neck have resolved. The weakness and numbness in his arms and hands are gone. He is delighted with the results of surgery. He has 5/5 strength in the upper extremities, normal sensation, negative nerve tension signs. Wound is well-healed with no dysphonia or dysphagia. Again he and his are absolutely delighted with the results of his cervical spine operation. However, he still has low back pain with symptoms into the lower extremities. He has associated weakness and numbness in his legs with ongoing difficulty walking and standing. This did improve somewhat with the cervical spine surgery but is still quite significant. The MRI of his lumbar spine demonstrates evidence of stenosis at L3-4 and L4-5 with an unstable retrolisthesis at the L3-4 and spondylolisthesis at the L4-5 level. Instability is most significant at L3-4. There are fluid-filled facets at L3-4 and L4-5. He has been treated with physical therapy, oral medications, numerous epidural injections without improvement. His quality of life is not acceptable. The left side bothers him much more than the right. He has great difficulty walking and standing for short distances, and can no longer leave the active lifestyle that he is to enjoy. He does not smoke. He does not take blood thinners. No history of prior abdominal surgery. The left side bothers him more than the right. We had a long discussion about different treatment options. We could consider doing a posterior surgery only, but he is a larger individual, and really wants to get back to fairly heavy labor type activity if possible, so I am a bit reluctant to consider a big open type decompression and fusion. It certainly would be a reasonable thing to do, but he would really favor something that is potentially less invasive. He understands that it may be a necessity at the end of the day. The other option would be consider an anterior/lateral fusion at L3-4 and/or L4-5. L4-5 is a bit deep-seated, but I think we could get to it laterally. We should definitely be able to get L3-4 laterally. At L4-5, if I cannot get a lateral approach, I may need to consider an oblique approach. Therefore, we might have to make a separate incision more anteriorly if the lateral incision does not give us adequate access. The hope would be that we could put interbody cages in, distract the levels and stabilize, and possibly even use plate fixation to stabilize the construct. If we get the cages in but cannot place lateral plates, he understands that we may need to place medical screws posteriorly although we would try to do so percutaneously if possible, if we get good indirect decompression via distraction. Because L4-5 is deep-seated, I may not be able to approach it laterally. There is also possibility that we might not be able to get access through an oblique exposure either. If this is to be the case, then I would consider going in posteriorly via minimally invasive TLIF approach through the left side since is the symptomatic side. This would allow me to directly decompress on the left side, and also place pedicle screws to obtain fixation with interbody graft. The L3-4 level appears to be the worst level by far. After long discussion, we decided that if we can only get L3-4 anteriorly, then we might just do the L3-4 level and see how he does with cage and plate fixation. We would not burn any bridges if we need to do L4-5 posteriorly later on via minimally invasive posterior approach as noted above. However, if L4-5 is obviously unstable, he understands that I might have to just going posteriorly if necessary to take care of the L4-5 level as well. Therefore, the plan can change. However, if we can only do L3-4 anteriorly, I would lean towards doing L3-4 alone, and seeing how he does versus necessarily forcing the L4-5 issue. If L4-5 is obviously unstable, he understands I may not have a choice. The other possibilities are that the anterior longitudinal ligament may disrupt as we are trying to distract. In this case, I would have to place posterior fixation either percutaneously or open. There is a possibility that we cannot get adequate distraction although it looks like we should be able to across 1 or both interspaces in which case I may need to perform an open decompression and fusion. Therefore, once again, he understands that the plan is a bit fluid, and there is a chance that we may need to change things based upon what we are able to do via the anterior approach and what we see. He also understands that if we use anterior plate fixation there is a chance that it may no (more content not included)... Normal [facility] Visiton 08-03-2021 Follow-up visit Diagnoses/Problems Lumbar stenosis with neurogenic claudication (724.03) (M48.062) Spondylolisthesis, lumbar region (738.4) (M43.16) Orders Cervical disc disorder with myelopathy, Lumbar stenosis with neurogenic claudication, Myelopathy concurrent with and due to spinal stenosis of cervical region Start: Lidocaine 4 % External Patch; APPLY 1 PATCH Daily Cervical disc disorder with myelopathy, Myelopathy concurrent with and due to spinal stenosis of cervical region Physical Therapy - General Referral Evaluation and Treatment Evaluate AND Treat Status: Hold For - Scheduling,Retrospective Authorization Requested for: [id number] Lumbar back pain, Lumbar stenosis with neurogenic claudication, Myelopathy concurrent with and due to spinal stenosis of cervical region Start: tiZANidine HCl - 4 MG Oral Tablet; TAKE 1 TABLET EVERY 6 HOURS NEEDED FOR SPASM Patient Discussion/Summary The patient returns today. His status post surgery on 06/21/2021. She underwent anterior decompression and fusion at C5-6 and C6-7 with plate and cage instrumentation. He is doing great. Severe burning pain that would run down his upper extremities has resolved. The weakness numbness and tingling in his arms and hands have resolved. Is able to use his arms and hands without difficulty. The loss of coordination is no longer a problem. Overall he is markedly improved from his preoperative state and extremely pleased with results of surgery. He is still having some back pain with symptoms into the lower extremities that is significant as well. 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 His cervical myeloradiculopathy is markedly improved after the successful surgery on 06/21/2021. His lumbar symptoms are persistent and bothersome. Of note, he does not take blood thinners. He does not smoke. He has no history of prior abdominal surgery. MRI lumbar spine on 03/08/2021 shows evidence of spinal stenosis L3-4 and L4-5. There is unstable retrolisthesis measuring 7 mm at L3-4, as well as a spondylolisthesis at L4-5 which measures 6 mm. I had a long talk with the patient. His lumbar symptoms still very problematic and as noted previously he has failed physical therapy, oral medications, numerous epidural injections. He strongly wants to consider surgery. However, he is just 6 weeks out from the cervical spine surgery, and I really want to start physical therapy and make sure that he is doing well before we start to take care another problem. He is in agreement with this. I am prescribing physical therapy cervical spine and prescribing tizanidine. I would like to see him back in 4 to 5 weeks to make sure that he is recovering well and that therapy is going well before we start to plan for his lumbar operation. It should be noted, that the problems with bowel and bladder that he had before surgery have also resolved since his successful cervical spine operation as well. He no longer has loss of control of his bowel and bladder and he is thrilled about this. Looking at the MRI from 03/08/2021, it appears that at L3-4 a lateral fusion could be performed. At L4-5, I am not sure that this would be possible, we would possibly have to consider an oblique fusion. Likewise, at L4-5 we could always consider a minimally invasive TLIF as well. There is evidence of stenosis at both levels. There are fluid-filled facet joints at both levels demonstrating instability. The stenosis is significant but not critically severe. Therefore, I am hoping we can get indirect decompression via distraction and possibly be able to perform the anterior surgery via lateral or oblique approach at both levels, followed by either plate fixation or posterior percutaneous fixation. If he were to have an adequate decompression, we could always consider a simple decompression surgery later on as the fusion would be complete at that point. We could also consider the surgery via posterior approach with an open decompression and fusion. However, this would entail a significant amount more muscle stripping and be a more extensive operation. He is very pleased with how the cervical spine surgery went, and given this I think he may be more amenable to the possibility of an indirect decompression via less invasive approach. After long discussion about this, he definitely would want to consider the anterior type surgery with indirect decompression as opposed to the open posterior type operation. The plan therefore would be to perform an anterior lumbar interbody fusion via extreme lateral or oblique approach at L3-4 and L4-5. We would provide fixation with either plate instrumentation or percutaneous fixation. The goal would be to get good distraction with indirect decompression as well as stabilization. Success rates of this type of surgery are generally in the 80% range for improvement of neurogenic symptoms. Because the patient's condition is very chronic and has been present for we (more content not included)... [facility] 08-03-2021 XR Cervical spine 3 Views Please click on the link to view the study images Normal -Orthopaedic [facility] [address] Work Phone: SPINE, CERVICAL, 2 OR 3 VIEW Son 08-03-2021 SPINE, CERVICAL, 2 OR 3 VIEWS Patient Name: JAY CARR STUDY: SPINE, CERVICAL, 2 OR 3 VIEWS; 08/03/2021 10:55 am INDICATION: ap/lat 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 COMPARISON: None. ACCESSION NUMBER(S): [id number] ORDERING CLINICIAN: SAL RICHARDSON FINDINGS: C-spine, two views Anterior spinal fusion C5-C7 with intact hardware. There is normal alignment. No fracture. No degenerative changes seen. IMPRESSION: Anterior spinal fusion C5-C7 without evidence hardware failure Electronically signed by: JULIA ARAIZA MD Normal [facility] CORONAVIRUS 2018, SCREEN ASY MPTOMATICon 07-05-2021 DATE OF SYMPTOM ONSET [[id number]]? Canceled Normal [facility] Comment on above: Order Comment: TEST CORONAVIRUS 2018, SCREEN ASYMPTOMATIC WAS CANCELLED, 07/05/2021 13:31 ptdid not have test done.. Performed By: #### U ARFX #### [facility] [address] [place] [address] SARS-CoV-2 (COVID-19) RNA LU+probe Ql (Unsp spec) Canceled [facility] Comment on above: Order Comment: TEST CORONAVIRUS 2018, SCREEN ASYMPTOMATIC WAS CANCELLED, 07/05/2021 13:31 ptdid not have test done.. Result Comment: . This assay is designed to detect the N, ORF1ab and/or S genes of SARS-CoV-2 via nucleic acid amplification. A Negative (NOT DETECTED) result does not preclude 2019-nCoV infection since the adequacy of sample collection and/or low viral burden may result in presence of viral nucleic acids below the clinical sensitivity of this test method. Negative (NOT DETECTED) result should not be used as the sole basis for treatment or other patient management decisions. Rather negative results should be combined with clinical observations, patient history, and epidemiological information to make patient management decisions. Fact sheet for providers: https://www.fda.gov/media/020930/download Fact sheet for patients: https://www.fda.gov/media/109220/download This test has received FDA Emergency Use Authorization (EUA) and has been verified by [facility] ([facility]). This test is only authorized for the duration of time that circumstances exist to justify the authorization of the emergency use of in vitro diagnostic tests for the detection of SARS-CoV-2 virus and/or diagnosis of COVID-19 infection under section 564(b)(1) of the Act, 21 U.S.C. 360bbb-3(b)(1), unless the authorization is terminated or revoked sooner. [facility] is certified under CLIA-88 as qualified to perform high complexity testing. Testing is performed in the [facility] laboratories located at [address] [place] [address]. Performed By: #### U ARFX #### [place] [address] ABO/RH GROUP TESTon 06-21-20 21 ABO TYPE O Normal [facility] Comment on above: Performed By: #### U ARFX #### [place] [address] RH TYPE Negative [facility] Comment on above: Performed By: #### U ARFX #### [place] [address] Operative Reports - [facility] [place] [place] [address] Patient Name: PAUL. Trena CARR : 1960 Date of Service: 06/21/2021 Patient Location: [place] [address] Patient Type: O Surgeon: Sal Richardson MD Report Type: Operative Reports PREOPERATIVE DIAGNOSIS: Cervical stenosis at C5-C6 and C6-C7 secondary to large disk osteophyte complexes at the C5-C6 and C6-C7 level. POSTOPERATIVE DIAGNOSIS: Cervical stenosis at C5-C6 and C6-C7 secondary to large disk osteophyte complexes at the C5-C6 and C6-C7 level. OPERATION/PROCEDURE: 1. Anterior cervical diskectomy with decompression at C5-C6 with decompression of the spinal cord and bilateral anterior foraminotomies. 2. Anterior cervical diskectomy with decompression at C6-C7 with decompression of the spinal cord and bilateral foraminotomies. 3. Partial corpectomy at C6 and C7 to completely decompress the C6-C7 interspace. 4. Anterior cervical fusion C5-C6 and C6-C7 with use of interbody cage device x2, anterior plate instrumentation. SURGEON: Sal Richardson MD [employer]): Ad Valdivia MD, chief resident. ANESTHESIA: ESTIMATED BLOOD LOSS: 15 cc. URINE OUTPUT: None. IV FLUIDS: 1.3 L of lactated Ringer's solution. FINDINGS: Excellent decompression C5-C7 with appropriate placement of graft and instrumentation. COMPLICATIONS: None. INDICATIONS FOR SURGERY: The patient is a 61-year-old man with severe unrelenting neck pain with radicular symptoms down to the upper extremities. He has weakness and numbness in the arms and hands and is becoming progressively myelopathic. Because of this, I did sign an attestation to perform surgery, although there was a current moratorium due to short staffing at [facility]. The patient agreed to have the surgery as an outpatient as long as he was doing well postoperatively, to call for moratorium. Because the patient has progressive myelopathy, he is appropriately consented for and brought to the operating room for the above procedures on June 21, 2021. SURGEON'S NOTE: The patient was brought to the operating room and laid supine on the bed. General endotracheal anesthesia was induced. LEAH hose and SCDs were placed. The patient was then placed in a supine position on the Phoenix frame. Spinal cord monitoring leads were placed, and baseline signals were obtained. Arms were padded and tucked. Spinal cord monitoring leads were placed, and baseline signals were obtained. Interscapular roll was used to keep the neck in gentle hyperextension. We then rechecked signals, which were found to be unchanged. Anterior cervical region was then prepped and draped out in the usual sterile fashion. A transverse incision was made about the left side of the patient's neck at the C6 level. Knife was carried out through skin and subcutaneous tissue, and then Bovie was then used to dissect down to the platysma. The platysma was split in line with the incision. I bluntly dissected along the medial border of the sternocleidomastoid muscle finding the plane between the carotid sheath laterally and the medial structures medially. I dissected all the way to and through the prevertebral fascia. The longus colli muscle was identified and lifted on each side. Self-retaining retractors were placed. A bent spinal needle was used to identify levels, and a lateral x-ray was taken to confirm. With the levels confirmed, Leksell rongeur was used to remove the large anterior osteophytes at C5-C6 and C6-C7. A #15 blade was used to perform annulotomy. Pituitary rongeur was used to perform annulectomy and nuclectomy. Pituitary rongeur, Kerrison rongeur, curettes were all used to remove all the cartilaginous material from the disk spaces. I dissected all the way to and through the posterior annulus as well as the posterior longitudinal ligament all the way out laterally out to the uncovertebral joints thereby decompressing the spinal cord centrally as well as the foramen bilaterally. I used Kerrison rongeur and curettes, to remove all of the large disk osteophyte complexes that were present posteriorly. At C6-C7, I did perform a partial corpectomy across this level to completely decompress the interspace and to remove all the disk osteophyte material that extruded behind the vertebral bodies above and below the interspace. With the decompression complete, I leveled off the endplates with power bur. I sized the interspaces with interbody cage devices that were filled with allograft. This was malleted into place. This was flushed with the anterior border of the vertebral bodies. I then placed plate and screw instrumentation. The plate was placed from C5-C7. I drilled and placed 13 mm screws and obtained excellent posi (more content not included)... [facility] Order Reconciliationon 06-21 Order Reconciliation Page 1 Discharge Reconciliation Document Reconciliation Type: Discharge requested on behalf of Ad Valdivia (Resident) done by Ad Valdivia ( (Resident)) Discharge - Reconciliation: 21-Jun-2021 11:57 by: Ad Valdivia ( (Resident)) Discharge - Reset to Incomplete: 21-Jun-2021 11:57 by: Ad Valdivia ( (Resident)) Discharge - Reconciliation: 21-Jun-2021 11:59 by: Ad Valdivia ( (Resident)) Home Medications EnteredHOME MEDICATIONS AT DISCHARGE DateReconciliation Comment/ Additional Information celecoxib 200 mg oral capsule 1 cap(s) oral 2 times a day 02-Jun-2021 10:24 Discontinued; Discontinue from ORM celecoxib 200 mg oral capsule is not required gabapentin 300 mg oral capsule 1 tab(s) oral once a day 02-Jun-2021 10:24 gabapentin 300 mg oral capsule 1 tab(s) oral once a day 02-Jun-2021 10:24 gabapentin 300 mg oral capsule is continued as gabapentin 300 mg oral capsule hydroxychloroquine 200 mg oral tablet 1 tab(s) oral 2 times a day 02-Jun-2021 10:24 hydroxychloroquine 200 mg oral tablet HOLD FOR 2 WEEKS UNTIL FOLLOW-UP WITH DR. RICHARDSON Discontinued; Copy/Discontinue hydroxychloroquine 200 mg oral tablet is continued and modified irbesartan 300 mg oral tablet 1 tab(s) oral once a day 02-Jun-2021 10:24 irbesartan 300 mg oral tablet 1 tab(s) oral once a day 02-Jun-2021 10:24 irbesartan 300 mg oral tablet is continued as irbesartan 300 mg oral tablet NIFEdipine 30 mg oral tablet, extended release 1 tab(s) oral once a day 02-Jun-2021 10:24 NIFEdipine 30 mg oral tablet, extended release 1 tab(s) oral once a day 02-Jun-2021 10:24 NIFEdipine 30 mg oral tablet, extended release is continued as NIFEdipine 30 mg oral tablet, extended release pantoprazole 40 mg oral delayed release tablet 1 tab(s) oral once a day 02-Jun-2021 10:24 pantoprazole 40 mg oral delayed release tablet 1 tab(s) oral once a day 02-Jun-2021 10:24 pantoprazole 40 mg oral delayed release tablet is continued as pantoprazole 40 mg oral delayed release tablet Vitamin C 1 3 times a day 02-Jun-2021 09:51 Vitamin C 1 3 times a day 02-Jun-2021 09:51 Vitamin C is continued as Vitamin C Vitamin D3 1 3 times a day 02-Jun-2021 09:51 Vitamin D3 1 3 times a day 02-Jun-2021 09:51 Vitamin D3 is continued as Vitamin D3 Zinc 140 mg (as elemental zinc 50 mg) oral tablet 1 tab(s) oral once a day 31-May-2021 11:15 Zinc 140 mg (as elemental zinc 50 mg) oral tablet 1 tab(s) oral once a day 31-May-2021 11:15 Zinc 140 mg (as elemental zinc 50 mg) oral tablet is continued as Zinc 140 mg (as elemental zinc 50 mg) oral tablet Current OrdersDateHOME MEDICATIONS AT DISCHARGE DateReconciliation Comment/ Additional Information HYDROmorphone Injectable (DILAUDID)DOSE = 0.4 mg IntraVenous Push Every 5 Minutes, PRN Pain - Severe (7-10) (PACU)Clinician Notes: Magy-operative order ONLYMax total of 4 mg regardless of dose. 21-Jun-2021 09:19 HYDROmorphone Injectable is not required Hydroxychloroquine Tablet (PLAQUENIL)DOSE = 200 mg Oral 2 Times a Day 21-Jun-2021 06:37 Hydroxychloroquine is not required Lactated Ringers Infusion IV Bag Volume = 1,000 mL Run at: 100 mL/hr IntraVenous Clinician Notes: Magy-operative order ONLY 21-Jun-2021 09:19 Lactated Ringers Infusion is not required NIFEdipine (PROCARDIA XL) Extended Release Tablet, Extended ReleaseDOSE = 30 mg Oral Daily 21-Jun-2021 06:37 NIFEdipine (PROCARDIA XL) Extended Release is not required Ondansetron Injectable (ZOFRAN)DOSE = 4 mg IntraVenous Push Once, PRN PONV, first lineClinician Notes: Magy-operative order ONLY 21-Jun-2021 09:19 Ondansetron Injectable is not required Pantoprazole Enteric Coated Tablet (PROTONIX)DOSE = 40 mg Oral Daily 21-Jun-2021 06:37 Pantoprazole is not required Home Medications Added During Discharge Reconciliation Colace 100 mg oral capsule 1 cap(s) orally 2 times a day as needed for constipation methocarbamol 500 mg oral tablet 2 tab(s) orally every 8 hours as needed for muscle spasms oxycodone-acetaminophen 5 mg-325 mg oral tablet 1-2 tab(s) orally every 4-6 hours as needed for pain, , Dx: G89.1, acute post-operative pain predniSONE 20 mg oral tablet 1 tab(s) orally once a day for 7 days All Active Home Medications at time of Discharge Reconciliation: 21-Jun-2021 11:59 Colace 100 mg oral capsule 1 cap(s) orally 2 times a day as needed for constipation gabapentin 300 mg oral capsule 1 tab(s) oral once a day hydroxychloroquine 200 mg oral tablet HOLD FOR 2 WEEKS UNTIL FOLLOW-UP WITH DR. RICHARDSON irbesartan 300 mg oral tablet 1 tab(s) oral once a day methocarbamol 500 mg oral tablet 2 tab(s) orally every 8 hours as needed for muscle spasms NIFEdipine 30 mg oral tablet, extended release 1 tab(s) oral once a day oxycodone-acetaminophen 5 mg-325 mg oral tablet 1-2 tab(s) orally every 4-6 hours as needed for pain, , Dx: G89.1, acute post-operative pain pantoprazole 40 mg oral delayed release tablet 1 tab(s) oral once a day (more content not included)... [facility] Order Reconciliation Page 1 Admission Reconciliation Document Reconciliation Type: Admission requested on behalf of Cheikh August (Resident) done by Cheikh August ( (Resident)) Admission - Reconciliation: 21-Jun-2021 06:37 by: Cheikh August ( (Resident)) Home MedicationsEnteredLast Dose TakenReconciled with current Order Reconciliation Comment/ Additional Information celecoxib 200 mg oral capsule 1 cap(s) oral 2 times a [id number] Reviewed and Held gabapentin 300 mg oral capsule 1 tab(s) oral once a [id number] Reviewed and Held hydroxychloroquine 200 mg oral tablet 1 tab(s) oral 2 times a [id number] Hydroxychloroquine Tablet (PLAQUENIL)DOSE = 200 mg Oral 2 Times a Day hydroxychloroquine 200 mg oral tablet continued as the inpatient order Hydroxychloroquine irbesartan 300 mg oral tablet 1 tab(s) oral once a [id number] Reviewed and Held NIFEdipine 30 mg oral tablet, extended release 1 tab(s) oral once a day 21-Jun-2021 NIFEdipine (PROCARDIA XL) Extended Release Tablet, Extended ReleaseDOSE = 30 mg Oral DailyNIFEdipine 30 mg oral tablet, extended release continued as the inpatient order NIFEdipine (PROCARDIA XL) Extended Release pantoprazole 40 mg oral delayed release tablet 1 tab(s) oral once a day 21-Jun-2021 Pantoprazole Enteric Coated Tablet (PROTONIX)DOSE = 40 mg Oral Dailypantoprazole 40 mg oral delayed release tablet continued as the inpatient order Pantoprazole Vitamin C 1 3 times a [id number] Reviewed and Held Vitamin D3 1 3 times a [id number] Reviewed and Held Zinc 140 mg (as elemental zinc 50 mg) oral tablet 1 tab(s) oral once a day 21-Jun-2021 Reviewed and Held [facility] Patient Profile - Preop v3on 06-21-2021 Patient Profile - Preop v3 Patient Profile - Preop: Initial Info: Patient DemographicsName: JAY CARR Date: 1960 Address: [address] [place] [address] Primary Phone [phone] How to be AddressedPaul Spoken Language PreferredEnglish Source of Informationpatient Stated Reason for Admissionback surgery Primary Contact Name and NumberAna Lilia Carr () [phone] Limitations on Visitors/Phone Callsnone Patient Belongings2 bags in pacu, glasses and phone with pt Medications Brought to Hospitalno General Health: Weight in kg98.9 kilogram(s) Weight in ijl893 pound(s) Weight Methodactual (measured) Scale Typestanding Height in feet5 feet Height in inches9 inch(es) Height in cm175.2 centimeter(s) Height Methodstated BMI (kg/m2)32.22 square meter Patient or Family Member Reaction to Anesthesiapatient reaction Patient Reaction to Anesthesiaawakening delayed Blood Avoidance/Restrictionsno ne Previous Transfusion Reactionnot applicable Health Mgmt: Symptoms/Conditions Managed at Homesee significant events Barriers to Managing Healthnone Relationship/Environ: Lives Withspouse Living Arrangementshouse Resource/Environmental Concernsnone Anticipated Transition Tosaint michael Services Anticipated at Transitionnone Tobacco Use: Tobacco Useno Pre-op Checklist: Arrival [id number] Arrival Time06:43 Procedure TypeC5-7 decompression and fusion NPOyes ID Band On Patientpatient ID (name), allergy Consent Signedpending H&P Completeyes Anesthesia Assessment Completedpending Chlorhexadine Bath Givencompleted at home, given night before surgery, completed morning of surgery Nasal Antiseptic Appliedcompleted at home Soap and Water Bath the Night Before Surgerynot applicable Hair Washed with Shampoonot applicable Additional Information: Information Review: Allergies, Home Meds and Significant Events have been Reviewed and Verified with Patient/Familyyes Allergy, Intolerance, Adverse Event: Allergies: penicillin: Drug, Rash, Active Significant Events: 21-Jun-2021 covid in April 2021: Past Medical History, Active 21-Jun-2021 lupus: Past Medical History, Active 21-Jun-2021 GERD: Past Medical History, Active 21-Jun-2021 HTN: Past Medical History, Active Electronic Signatures: Maisha Meyer (ALICE) (Signed 21-Jun-2021 06:45) Authored: Initial Info, General Health, Health Mgmt, Relationship/Environ, Tobacco Use, Pre-op Checklist, Additional Information Last Updated: 21-Jun-2021 06:45 by Maisha Meyer (ALICE) Normal [facility] CORONAVIRUS 2019, SCREEN ASY MPTOMATICon 06-20-2021 SARS-CoV-2 (COVID-19) RNA LU+probe Ql (Unsp spec) Not detected Normal Not Detected [facility] Comment on above: Result Comment: . This assay is designed to detect the N, ORF1ab and/or S genes of SARS-CoV-2 via nucleic acid amplification. A Negative (NOT DETECTED) result does not preclude 2019-nCoV infection since the adequacy of sample collection and/or low viral burden may result in presence of viral nucleic acids below the clinical sensitivity of this test method. Negative (NOT DETECTED) result should not be used as the sole basis for treatment or other patient management decisions. Rather negative results should be combined with clinical observations, patient history, and epidemiological information to make patient management decisions. Fact sheet for providers: https://www.fda.gov/media/378837/download Fact sheet for patients: https://www.fda.gov/media/230331/download This test has received FDA Emergency Use Authorization (EUA) and has been verified by [facility] ([facility]). This test is only authorized for the duration of time that circumstances exist to justify the authorization of the emergency use of in vitro diagnostic tests for the detection of SARS-CoV-2 virus and/or diagnosis of COVID-19 infection under section 564(b)(1) of the Act, 21 U.S.C. 360bbb-3(b)(1), unless the authorization is terminated or revoked sooner. [facility] is certified under CLIA-88 as qualified to perform high complexity testing. Testing is performed in the [facility] laboratories located at [address] [place] [address]. Performed By: #### U ARFX #### [address] [place] [address] Covid 19 Resultson 1 SARS-CoV-2 (COVID-19) RNA LU+probe Ql (Unsp spec) NEGATIVE COVID-19 Test Coronaviruses are common world-wide and are the cause of many common colds. SARS-COV2 is a new coronavirus that began circulating worldwide in 2019 so we are calling it COVID-19. It has been estimated that four out of five patients with COVID-19 will recover at home without the need for medical attention. Symptoms of COVID-19 may include cough, fever, shortness of breath, loss of taste or smell and other flu-like symptoms including chills, sore muscles, sore throat, and headache. Severe illness is more common in older people and people with other health problems such as high blood pressure, obesity, and immune system problems. If the test is positive, you have COVID-19. You will be contacted by the ordering physicians office and instructed to remain on home isolation, in accordance with CDC guidelines. You may also be contacted by the [facility] to see if any of your close contacts may have been exposed to the virus and need to quarantine. If the test is negative, you likely do not have COVID-19 at this time, but you still may have a different illness that can spread to other people (like Influenza, or the Flu) and could still be at risk for getting COVID-19. We recommend that you stay away from other people to limit the spread of illness until your symptoms are improving and you are fever-free for 24 hours without the use of fever lowering medications such as acetaminophen or ibuprofen. No test is 100% accurate so if you are still concerned you may have COVID-19, talk to your doctor about the need to continue to stay away from others. Medicines Unless your provider told you not to use the following: Acetaminophen (Tylenol and others) is generally safe. Anti-inflammatory medications, such as Ibuprofen (Advil or Motrin) or Naproxen (Aleve) can also be used. Hxlz-eqv-tzpvqgt cough and cold medicines can be used according to the instructions on the package. Some fwfx-hyd-grxgpye medicines also contain acetaminophen. Make sure you are not taking more than your recommended dose. For those not hospitalized, there is no specific treatment available for this illness. Antibiotics do not treat Coronaviruses. Follow-Up Follow up with your doctor by scheduling a virtual visit or consider follow-up at one of our urgent care fever clinics. If you are having difficulty breathing, or are very weak and having difficulty standing, this is a medical emergency. Call 911 or have someone take you to the nearest emergency room immediately. If possible, wear a facemask. Additional guidance from the CDC for patients who tested POSITIVE for COVID-19 How to isolate: Isolate yourself in a specific room at home and limit your contact with others. Use a separate bathroom from other members of the household, when possible. Leave home only to get essential medical care. Do not go to work, school or public areas. Avoid using public transportation, ride-sharing, or taxis. Restrict contact with pets and other animals. If you must care for your pet or be around animals while you are sick, wash your hands before and after your interaction and wear a facemask. Make sure that shared spaces in the home have good airflow, such as by an air conditioner or an opened window, weather permitting. Personal Hygiene Procedures: Wear a face mask when in the same room as other people or pets. If a face mask interferes with your breathing, others should wear a mask when sharing space with you. Frequent hand-washing: wash your hands with soap and water for at least 20 seconds. If soap and water are not available, use alcohol-based hand lieutenant firefighter. Avoid touching your eyes, nose, and mouth with unwashed hands. Household Hygiene Procedures: Avoid sharing personal household items such as dishes, glassware, cups, eating utensils, towels or bedding with other people or pets in your home. After use, these items should be washed with soap and hot water. Disinfect all high-touch surfaces every day with antibacterial cleaning solutions such as Lysol wipes, bleach, cleansers, etc. High-touch surfaces include tabletops, doorknobs, bathroom fixtures, toilets, phones, keyboards, tablets and bedside tables. Immediately clean any surfaces that may have blood, poop or body fluids on them, using antibacterial cleaning solutions such as Lysol wipes, bleach, cleansers, etc. If clothing or bedding come into contact with blood, poop or body fluids, they should be washed immediately. Follow the directions on the laundry detergent and clothing labels but hot water is recommended when possible. Stopping home isolation precautions: If possible, consult your doctor before stopping home isolation precautions. According to the CDC, you can discontinue home isolation precautions when you have met both of these criteria: Your fever and respiratory symptoms have been gone for 24 mary (more content not included)... Normal [facility] CORONAVIRUS 2019, SCREEN ASY MPTOMATICon 06-19-2021 Lab Specimen Source Nasal, Nasopharyngeal Normal [facility] Comment on above: Performed By: #### U ARFX #### [facility] [address] [place] [address] BASIC METABOLIC PANELon 12- Anion gap [Moles/Vol] 14 mmol/L Normal 10 - 20 [facility] Comment on above: Performed By: #### B MP #### [facility] [address] [place] [address] Calcium [Mass/Vol] 9.0 mg/dL Normal 8.6 - 10.6 [facility] Comment on above: Performed By: #### B MP #### [facility] [address] [place] [address] Chloride [Moles/Vol] 105 mmol/L Normal 98 - 107 [facility] Comment on above: Performed By: #### B MP #### [facility] [address] [place] [address] Creatinine [Mass/Vol] 0.85 mg/dL Normal 0.50 - 1.30 [facility] Comment on above: Performed By: #### B MP #### [facility] [address] [place] [address] GFR- AM. >60 Normal >60 [facility] Comment on above: Result Comment: CALC ULATIONS OF ESTIMATED GFR ARE PERFORMED USING THE MDRD STUDY EQUATION FOR THE IDMS-TRACEABLE CREATININE METHODS. CLIN CHEM 2007;53:766-72 Performed By: #### B MP #### [facility] [address] [place] [address] GFR-NON AM. >60 Normal >60 [facility] Comment on above: Performed By: #### B MP #### [facility] [address] [place] [address] Glucose [Mass/Vol] 87 mg/dL Normal 74 - 99 [facility] Comment on above: Performed By: #### B MP #### [facility] [address] [place] [address] HCO3 (Bld) [Moles/Vol] 27 mmol/L Normal 21 - 32 [facility] Comment on above: Performed By: #### B MP #### [facility] [address] [place] [address] Potassium [Moles/Vol] 4.7 mmol/L Normal 3.5 - 5.3 [facility] Comment on above: Performed By: #### B MP #### [facility] [address] [place] [address] Sodium [Moles/Vol] 141 mmol/L Normal 136 - 145 [facility] Comment on above: Performed By: #### B MP #### [facility] [address] [place] [address] Urea nitrogen [Mass/Vol] 19 mg/dL Normal 6 - 23 [facility] Comment on above: Performed By: #### B MP #### [facility] [address] [place] [address] CBCon 06-02-2021 Erythrocyte distribution width (RBC) [Ratio] 12.4 % Normal 11.5 - 14.5 [facility] Comment on above: Performed By: #### U A #### [facility] [address] [place] [address] Hematocrit (Bld) [Volume fraction] 43.6 % Normal 41.0 - 52.0 [facility] Comment on above: Performed By: #### U A #### [facility] [address] [place] [address] Hemoglobin (Bld) [Mass/Vol] 14.8 g/dL Normal 13.5 - 17.5 [facility] Comment on above: Performed By: #### U A #### [facility] [address] [place] [address] MCHC (RBC) [Mass/Vol] 33.9 g/dL Normal 32.0 - 36.0 [facility] Comment on above: Performed By: #### U A #### [facility] [address] [place] [address] MCV (RBC) [Entitic vol] 93 fL Normal 80 - 100 [facility] Comment on above: Performed By: #### U A #### [facility] [address] [place] [address] NUCLEATED RBC 0.0 /100 WBC Normal 0.0-0.0 [facility] Comment on above: Performed By: #### U A #### [facility] [address] [place] [address] Platelets (Bld) [#/Vol] 295 10*3/uL Normal 150 - 450 [facility] Comment on above: Performed By: #### U A #### [facility] [address] [place] [address] RBC 4.69 x10E12/L Normal 4.50 - 5.90 [facility] Comment on above: Performed By: #### U A #### [facility] [address] [place] [address] WBC (Bld) [#/Vol] 8.5 10*3/uL Normal 4.4 - 11.3 [facility] Comment on above: Performed By: #### U A #### [facility] [address] [place] [address] COAGULATION SCREENon aPTT Coag (Bld) [Time] 31 s Normal 26 - 39 [facility] Comment on above: Result Comment: Note new reference range as of 05/23/2021 at 10:00am. Performed By: #### U A #### [facility] [address] [place] [address] PT Coag (PPP) [Time] 12.2 s Normal 9.8 - 13.4 [facility] Comment on above: Result Comment: Note new reference range as of 05/23/2021 at 10:00am. Performed By: #### U A #### [facility] [address] [place] [address] PT, INR 1.1 Normal 0.9 - 1.1 [facility] Comment on above: Performed By: #### U A #### [facility] [address] [place] [address] Laboratory - Blood bankon ABO group Nom (Bld) O [facility] Work Phone: Blood group antibody screen Ql Negative [facility] Work Phone: Rh immune globulin screen (Bld) [Interp] Negative [facility] Work Phone: Laboratory - Chemistry and C hemistry - challengeon 06-02-2021 Anion gap [Moles/Vol] 14 mmol/L 10 - 20 [facility] Work Phone: Calcium [Mass/Vol] 9.0 mg/dL 8.6 - 10.6 [facility] Work Phone: Chloride [Moles/Vol] 105 mmol/L 98 - 107 [facility] Work Phone: CO2 [Moles/Vol] 27 mmol/L 21 - 32 [facility] Work Phone: Creatinine [Mass/Vol] 0.85 mg/dL See Below [facility] Work Phone: Comment on above: Reference Range: 0.5 0 - 1.30 Glucose [Mass/Vol] 87 mg/dL 74 - 99 [facility] Work Phone: Potassium [Moles/Vol] 4.7 mmol/L 3.5 - 5.3 [facility] Work Phone: Sodium [Moles/Vol] 141 mmol/L 136 - 145 [facility] Work Phone: Urea nitrogen [Mass/Vol] 19 mg/dL 6 - 23 [facility] Work Phone: Laboratory - Coagulationon 1 08-03-2020 aPTT Coag (PPP) [Time] 31 s 26 - 39 [facility] Work Phone: Comment on above: Note new reference r geo as of 05/23/2021 at 10:00am. INR Coag (PPP) [Relative time] 1.1 {INR} 0.9 - 1.1 [facility] Work Phone: PT Coag (PPP) [Time] 12.2 s 9.8 - 13.4 [facility] Work Phone: Comment on above: Note new reference r geo as of 05/23/2021 at 10:00am. Laboratory - Hematology and Cell countson 06-02-2021 Erythrocyte distribution width (RBC) [Ratio] 12.4 % See Below [facility] Work Phone: Comment on above: Reference Range: 11. 5 - 14.5 Hematocrit (Bld) [Volume fraction] 43.6 % See Below [facility] Work Phone: Comment on above: Reference Range: 41. 0 - 52.0 Hemoglobin (Bld) [Mass/Vol] 14.8 g/dL See Below [facility] Work Phone: Comment on above: Reference Range: 13. 5 - 17.5 MCHC (RBC) [Mass/Vol] 33.9 g/dL See Below [facility] Work Phone: Comment on above: Reference Range: 32. 0 - 36.0 MCV (RBC) [Entitic vol] 93 fL 80 - 100 [facility] Work Phone: Platelets (Bld) [#/Vol] 295 10*3/uL 150 - 450 [facility] Work Phone: RBC (Bld) [#/Vol] 4.69 {x10E12/L} See Below [facility] Work Phone: Comment on above: Reference Range: 4.5 0 - 5.90 WBC (Bld) [#/Vol] 8.5 10*3/uL 4.4 - 11.3 [facility] Work Phone: No Panel Informationon 06-02 >60 >60 [facility] Work Phone: Comment on above: CALCULATIONS OF TYREE MATED GFR ARE PERFORMED USING THE MDRD STUDY EQUATION FOR THE IDMS-TRACEABLE CREATININE METHODS. CLIN CHEM 2007;53:766-72 0.0 {/100_WBC} 0.0-0.0 [facility] Work Phone: Radiologyon 06-02-2021 XR Chest 2 Views Normal [facility] Work Phone: STAPH/MRSA SCREENon 06-02-20 STAPH/MRSA SCREEN PATIENT: JAY CARR LOCATION: [facility]#: [id number] : 62 AGE: SEX: M ORDERED BY: SAL RICHARDSON SOURCE: ANTERIOR NARES COLLECTED: 06/02/21 10:59 ANTIBIOTICS AT BRAEDEN.: RECEIVED : 06/02/21 13:35 SITE: Nasal R E S U L T S STAPH/MRSA SCREEN FINAL 06/04/21 07:50 NO Staphylococcus aureus ISOLATED. Normal [facility] Comment on above: Performed By: #### S TAPH #### [facility] [address] [place] [address] TH CHEST 2 VIEW PA AND LATon 06-02-2021 TH CHEST 2 VIEW PA AND LAT Patient Name: JAY CARR STUDY: TH CHEST 2 VIEW PA AND LAT; 06/02/2021 11:10 am INDICATION: covid follow up . COMPARISON: None. ACCESSION NUMBER(S): [id number] ORDERING CLINICIAN: SAL RICHARDSON FINDINGS: PA and lateral radiographs of the chest were provided. Additional PA dual energy images were also provided. CARDIOMEDIASTINAL SILHOUETTE: Cardiomediastinal silhouette is normal in size and configuration. LUNGS: There are low lung volumes with associated bronchovascular crowding. No focal consolidation, pleural effusion, or pneumothorax. ABDOMEN: No remarkable upper abdominal findings. BONES: No acute osseous changes. IMPRESSION: 1. There are low lung volumes with associated bronchovascular crowding. No focal consolidation, pleural effusion, or pneumothorax. I personally reviewed the images/study and I agree with the findings as stated. This study was interpreted at [facility], [place], [place]. Electronically signed by: RANJIT GONZALES MD Normal [facility] TYPE + SCREENon 06-02-2021 ABO TYPE O Normal [facility] Comment on above: Performed By: #### U A #### [facility] [address] [place] [address] RH TYPE Negative Normal [facility] Comment on above: Performed By: #### U A #### [facility] [address] [place] [address] UA MICROSCOPICon 06-02-2021 CA OXALATE CRYSTAL 3+ /HPF Abnormal [facility] Comment on above: Performed By: #### U A #### [place] [address] [place] [address] Mucus Ql (Urine sed) 4+ /LPF Normal [facility] Comment on above: Performed By: #### U A #### [facility] [address] [place] [address] RBC 11 /HPF Abnormal 0-5 [facility] Comment on above: Performed By: #### U A #### [facility] [address] [place] [address] SQUAMOUS EPITH. CELLS 1 /HPF Normal [facility] Comment on above: Performed By: #### U A #### [facility] [address] [place] [address] WBC 1 /HPF Normal 0-5 [facility] Comment on above: Performed By: #### U A #### [facility] [address] [place] [address] URINALYSIS WITH CULTURE IF I NDICATEDon 06-02-2021 Appearance (U) HAZY Normal CLEAR [facility] Comment on above: Performed By: #### U A #### [facility] [address] [place] [address] Bilirubin Ql (U) Negative Normal NEGATIVE [facility] Comment on above: Performed By: #### U A #### [facility] [address] [place] [address] Color (U) YELLOW Normal STRAW,YELL OW [facility] Comment on above: Performed By: #### U A #### [facility] [address] [place] [address] Glucose Ql (U) Negative Normal NEGATIVE [facility] Comment on above: Performed By: #### U A #### [facility] [address] [place] [address] Hemoglobin Ql (U) Negative Normal NEGATIVE [facility] Comment on above: Performed By: #### U A #### [facility] [address] [place] [address] Ketones Ql (U) Negative Normal NEGATIVE [facility] Comment on above: Performed By: #### U A #### [facility] [address] [place] [address] Leukocyte esterase Test strip Ql (U) Negative Normal NEGATIVE [facility] Comment on above: Performed By: #### U A #### [facility] [address] [place] [address] Nitrite Ql (U) Negative Normal NEGATIVE [facility] Comment on above: Performed By: #### U A #### [facility] [address] [place] [address] pH (U) 5.0 [pH] Normal 5.0 - 8.0 [facility] Comment on above: Performed By: #### U A #### [facility] [address] [place] [address] Protein Ql (U) 100 (2+) Abnormal NEGATIVE [facility] Comment on above: Performed By: #### U A #### [facility] [address] [place] [address] Specific gravity (U) [Rel density] 1.026 Normal 1.005 - 1.035 [facility] Comment on above: Performed By: #### U A #### [facility] [address] [place] [address] Urobilinogen (U) [Mass/Vol] mg/dL Normal 0.0 - 1.9 [facility] Comment on above: Performed By: #### U A #### [facility] [address] [place] [address] Color (U) YELLOW See Below [facility] Work Phone: Comment on above: Reference Range: STR AW,YELLOW Glucose Ql (U) Negative NEGATIVE [facility] Work Phone: Ketones Ql (U) Negative NEGATIVE [facility] Work Phone: Leukocyte esterase Test strip Ql (U) Negative NEGATIVE [facility] Work Phone: pH (U) 5.0 [pH] 5.0 - 8.0 [facility] Work Phone: Protein (U) [Mass/Vol] 100 (2+) Abnormal NEGATIVE [facility] Work Phone: RBC (U) [#/Vol] Negative NEGATIVE [facility] Work Phone: Specific gravity (U) [Rel density] 1.026 1 See Below [facility] Work Phone: Comment on above: Reference Range: 1.0 05 - 1.035 URINALYSIS WITH CULTURE IF INDICATED Negative NEGATIVE [facility] Work Phone: URINALYSIS WITH CULTURE IF INDICATED <2.0 0.0 - 1.9 [facility] Work Phone: URINALYSIS WITH CULTURE IF INDICATED HAZY CLEAR [facility] Work Phone: Urinalysis, Microscopicon Urinalysis, Microscopic 3+ Abnormal [facility] Work Phone: Urinalysis, Microscopic 4+ [facility] Work Phone: Urinalysis, Microscopic 1 {/HPF} 0-5 [facility] Work Phone: Urinalysis, Microscopic 11 {/HPF} Abnormal 0-5 [facility] Work Phone: CORONAVIRUS 2019, SCREEN ASY MPTOMATICon 05-23-2021 Lab Specimen Source Nasal, Nasopharyngeal Normal [facility] Comment on above: Order Comment: TEST CORONAVIRUS 2019, SCREEN ASYMPTOMATIC WAS CANCELLED, 07/05/2021 13:31 ptdid not have test done.. Performed By: #### U ARFX #### [facility] [address] [place] [address] Tobacco Screening.on 021 Fall risk assessment a) No falls within the last year [facility] Work Phone: Tobacco use status [facility] b) No [facility] Work Phone: MRI L Spine without Contrast on 03-08-2021 MR Lumbar spine WO contrast Normal [facility] Work Phone: NR MRI L-SPINE WOon 03-08-20 21 NR MRI L-SPINE WO Patient Name: JAY CARR STUDY: MRI L-SPINE WO; 03/08/2021 1:57 pm INDICATION: pain. COMPARISON: Lumbosacral spine radiographs 02/09/2021 ACCESSION NUMBER(S): [id number] ORDERING CLINICIAN: TONJA GERARDO TECHNIQUE: Sagittal and axial T1 and T2 weighted images of the lumbar spine were acquired. Sagittal STIR imaging was also performed FINDINGS: There are 5 lumbar type vertebrae. Alignment: There is trace grade 1 retrolisthesis of L1 on L2, L2 on L3 and L3 on L4. Unchanged minimal levo scoliotic curvature. Vertebrae/Intervertebral Discs: The vertebral bodies demonstrate expected height.Mild multilevel degenerative endplate marrow signal change. There is multilevel disc desiccation. Moderate to severe degenerative disc height loss at L2-L3 with vwfs-gh-bevkzyoq height loss at L1-L2. Conus: The lower thoracic cord appears unremarkable. The conus terminates at the level of the L1 vertebral body. T12-L1: There is a small annular fissure posteriorly. There is no significant spinal canal or neural foraminal stenosis. L1-2: There is posterior osteophyte formation with a focal right paracentral disc extrusion. Additional moderate disc bulge. Encroachment on the lateral recesses without spinal canal stenosis. No significant neural foraminal stenosis. L2-3: Mild bilateral facet arthropathy. Moderate disc bulge with hypertrophic endplate spurring, worse along the right lateral aspect. Narrowing of the lateral recesses, left greater than right, without spinal canal stenosis. There is cbev-cf-tcrygkkw right and mild left neural foraminal narrowing. L3-4: Mild facet arthropathy. There is moderate disc bulging with posterior fissuring. Prominent dorsal epidural fat. There is moderate spinal canal stenosis with complete effacement of the bilateral subarticular zones. There is moderate right and moderate to severe left neural foraminal narrowing. L4-5: Moderate bilateral facet arthropathy with fluid within the bilateral facet joints. Mild ligamentum flavum thickening. There is mild circumferential disc bulging with endplate hypertrophy. There is mild spinal canal stenosis. There is moderate bilateral neural foraminal stenosis. L5-S1: Mild facet arthropathy. There is no spinal canal stenosis. There is mild right neural foraminal narrowing. The prevertebral and posterior paraspinous soft tissues are unremarkable. IMPRESSION: At L3-L4 combination of degenerative discogenic change, facet arthropathy, and prominent dorsal epidural fat contributes to moderate spinal canal stenosis with effacement of the lateral recesses. There is moderate right and moderate to severe left neural foraminal narrowing at this level. Mild spinal canal stenosis at L4-L5 with moderate bilateral neural foraminal narrowing. Additional multilevel degenerative change as above. I personally reviewed the images/study and I agree with the findings as stated. This study was interpreted at [facility], [place], [place]. Electronically signed by: STEVE YANG MD Normal [facility] No Panel Informationon 02-09 Normal -Orthopaedic [facility] [address] Work Phone: Please click on the link to view the study images Normal -Orthopa[facility] [address] Work Phone: SPINE, LUMBOSACRAL; MIN 4 EWSon 02-09-2021 SPINE, LUMBOSACRAL; MIN 4 VIEWS Patient Name: JAY CARR STUDY: Lumbar Spine, 4 views. INDICATION: Low back pain COMPARISON: None. ACCESSION NUMBER(S): [id number] ORDERING CLINICIAN: TONJA GERARDO FINDINGS: Grade 1 retrolisthesis at L2-3 and L3-4. Grade 1 anterolisthesis at L4-5. Moderate L2-3 spondylosis with disc height loss and endplate sclerosis. Mild L1-2 spondylosis. Mild facet arthropathy at L3-4, L4-5, and L5-S1. No dynamic instability on flexion/extension views. Vertebral body heights are preserved. Posterior elements are intact. IMPRESSION: 1. Alignment and degenerative changes of the lumbar spine as described above. Electronically signed by: JOSE GOEL MD Normal [facility] MRI L-Ext Joint w/o Contrast LTon 01-12-2021 MR Lower extremity joint - left WO contrast MRI LEFT HIP WITHOUT CONTRAST DATE OF EXAM: 01/12/2021 7:14 AM HISTORY: Painful left hip after having right knee replacement. Symptoms since December. COMPARISON: I have no comparisons. FINDINGS: The pelvic bones are intact and demonstrate normal marrow signal. The sacroiliac joints are patent and symmetric. There are endplate and disc degenerative changes at the partially visible lower lumbar spine which are not further assessed on this exam. Normal appearance to the pubic symphysis. Targeted left hip imaging: The hip is intact and anatomically aligned. No femoral head AVN. Suspect minimal osteophyte formation. No osseous edema or subchondral cyst formation. Intact articular cartilage and labrum. No paralabral cyst. No joint effusion or bursal collection. Intact muscles and tendons. The visible pelvic compartment demonstrates no mass or enlarged lymph node. No femoral/inguinal hernia. IMPRESSION: Minimal left femoral head osteophyte formation. No other focal left hip abnormality. Pound thanks you for the opportunity to care for your patient. Workstation ID: [id number] FINAL REPORT Dictated By: Batsheva Brown MD 01/12/2021 08:43 Assigned Physician: Batsheva Brown MD Reviewed and Electronically Signed By: Batsheva Brown MD 01/12/2021 09:09 Transcribed by: CAROLINA 01/12/2021 08:43 Technologist: MEDICAL RECEPTIONIST BILLER Normal [facility] Basic metabolic 2000 panelon 11-10-2020 Calcium [Mass/Vol] 9.5 mg/dL Normal 8.5-10.6 [facility] Chloride [Moles/Vol] 104 mmol/L Normal 98-107 Moun [facility] CO2 [Moles/Vol] 28 mmol/L Normal 21-32 [facility] Creatinine [Mass/Vol] 0.85 mg/dL Normal 0.55-1.02 [facility] Glucose [Mass/Vol] 112 mg/dL High 70-99 [facility] Potassium [Moles/Vol] 4.2 mmol/L Normal 3.5-5.1 Lianna [facility] Sodium [Moles/Vol] 142 mmol/L Normal 136-145 [facility] Urea nitrogen (BldV) [Mass/Vol] 20 mg/dL High 7.0-18.0 [facility] Urea nitrogen/Creatinine [Mass ratio] 24 mg/mg Normal [facility] CBC W Auto Differential pane l (Bld)on 11-10-2020 Basophils (Bld) [#/Vol] 0.0 thou/mcL Normal 0.0-0.2 [facility] Basophils/100 WBC (Bld) 0.5 % Normal 0-3 [facility] Differential cell count method Nom (Bld) AUTOMATED DIFFERENTIAL Normal [facility] Eosinophils (Bld) [#/Vol] 0.1 thou/mcL Normal 0.0-0.4 [facility] Eosinophils/100 WBC (Bld) 0.9 % Normal 0-7 [facility] Erythrocyte distribution width (RBC) [Entitic vol] 13.0 % Normal 11.7-15.0 [facility] Hematocrit (Bld) [Volume fraction] 43.4 % Normal 34.0-50.0 [facility] Hemoglobin (Bld) [Mass/Vol] 15.0 g/dL Normal 11.5-17.0 [facility] Lymphocytes (Bld) [#/Vol] 1.0 thou/mcL Normal 0.7-4.5 [facility] Lymphocytes/100 WBC (Bld) 15.6 % Normal 14-46 [facility] MCH (RBC) [Entitic mass] 32.5 Picograms Normal 27.0-34.0 [facility] MCHC (RBC) [Mass/Vol] 34.6 g/dL Normal 32.0-36.0 Lian[facility] MCV (RBC) [Entitic vol] 94.0 fL Normal 80-98 [facility] Monocytes (Bld) [#/Vol] 0.6 thou/mcL Normal 0.1-1.0 [facility] Monocytes/100 WBC (Bld) 9.8 % Normal 4-13 [facility] Neutrophils (Bld) [#/Vol] 4.7 thou/mcL Normal 1.5-7.8 [facility] Neutrophils/100 WBC (Bld) 73.2 % Normal 40-74 [facility] Platelet mean volume (Bld) [Entitic vol] 9.4 fL Normal 7.5-11.2 [facility] Platelets (Bld) [#/Vol] 220 thou/mcL Normal 140-415 [facility] RBC (Bld) [#/Vol] 4.62 x(10)6/mcL Normal 3.80-5.60 [facility] WBC (Bld) [#/Vol] 6.5 thou/mcL Normal 4.0-10.5 [facility] PT Coag (PPP) [Time]on 11-10 INR Coag (Bld) [Relative time] 0.9 {INR} Normal [facility] Comment on above: Result Comment: ENRRIQUE NG THE INDUCTION PHASE OF ORAL ANTICOAGULATION, THE INR MAY NOT REFLECT THE ANTICOAGULANT STATUS OF THE PATIENT. THERAPEUTIC RANGES FOR INR'S ARE: MOST CLINICAL SITUATIONS: INR 2.0-3.0 MECHANICAL PROSTHETIC VALVES: INR 2.5-3.5 CRITICAL: INR 5.0 Prothrombin Timeon PT Coag (PPP) [Time] 12.6 s Normal 11.9-14.6 Moun [facility] aPTT Coag (Bld) [Time]on aPTT Coag (PPP) [Time] 38.6 s High 23.2-34.6 [facility] Vital Signs Date Time Vital Sign Value Performing Clinician Facility 04-08-2023 10:38-0400 Blood Pressure Location Shun MACHADO [facility] 04-08-2023 10:38-0400 Diastolic blood pressure 82 mm[Hg] Shun MACHADO [facility] 04-08-2023 10:38-0400 Heart rate 71 /min Shun MACHADO [facility] 04-08-2023 10:38-0400 Systolic blood pressure 154 mm[Hg] Shun MACHADO [facility] 10-16-2022 14:18-0400 Blood Pressure Location Shun MACHADO [facility] 10-16-2022 14:18-0400 Diastolic blood pressure 94 mm[Hg] Shun MACHADO [facility] 10-16-2022 14:18-0400 Heart rate 72 /min Shun MACHADO [facility] 10-16-2022 14:18-0400 Systolic blood pressure 186 mm[Hg] Shun MACHADO [facility] 10-02-2022 13:36-0400 Blood Pressure Location Arely NILL [facility] [place] 10-02-2022 13:36-0400 Diastolic blood pressure 80 mm[Hg] Arely NILL [facility] [place] 10-02-2022 13:36-0400 Heart rate 76 /min Arely NILL [facility] [place] 10-02-2022 13:36-0400 Respiratory rate 16 /min Arely NILL [facility] [place] 10-02-2022 13:36-0400 Systolic blood pressure 144 mm[Hg] Arely NILL [facility] [place] 02-15-2022 14:19-0400 Diastolic blood pressure 95 mm[Hg] MD Audrey Armstrong Work Phone: [facility] 02-15-2022 14:19-0400 Heart rate 66 /min MD Audrey Armstrong Work Phone: [facility] 02-15-2022 14:19-0400 Respiratory rate 16 /min MD Audrey Armstrong Work Phone: [facility] 02-15-2022 14:19-0400 SaO2% (BldA) [Mass fraction] 99 % MD Audrey Armstrong Work Phone: [facility] 02-15-2022 14:19-0400 Systolic blood pressure 170 mm[Hg] MD Audrey Armstrong Work Phone: [facility] 02-15-2022 13:04-0400 Inhaled oxygen flow rate 6 L/min MD Audrey Armstrong Work Phone: [facility] 02-15-2022 12:00-0400 Body weight 42 mg MD Audrey Armstrong Work Phone: [facility] 02-15-2022 10:03-0400 Body height 175.26 cm MD Audrey Armstrong Work Phone: [facility] 02-15-2022 10:03-0400 Body mass index (BMI) [Ratio] 31.3 kg/m2 MD Audrey Armstrong Work Phone: [facility] 02-15-2022 10:03-0400 Body weight 96.16 kg MD Audrey Armstrong Work Phone: [facility] 02-15-2022 07:29-0400 Body temperature 98.8 [degF] MD Audrey Armstrong Work Phone: [facility] 01-24-2022 13:59-0400 Blood Pressure Location Arely LOGAN [facility] [place] 01-24-2022 13:59-0400 Diastolic blood pressure 74 mm[Hg] Arely LOGAN [facility] [place] 01-24-2022 13:59-0400 Heart rate 72 /min Arely LOGAN [facility] [place] 01-24-2022 13:59-0400 Respiratory rate 16 /min Arely LOGAN [facility] [place] 01-24-2022 13:59-0400 Systolic blood pressure 140 mm[Hg] Arely KRISHNAMURTHYL [facility] [place] 01-19-2022 16:45-0400 Diastolic blood pressure 84 mm[Hg] MD Audrey Armstrong Work Phone: [facility] 01-19-2022 16:45-0400 Heart rate 70 /min MD Audrey Armstrong Work Phone: [facility] 01-19-2022 16:45-0400 Respiratory rate 16 /min MD Audrey Armstrong Work Phone: [facility] 01-19-2022 16:45-0400 SaO2% (BldA) [Mass fraction] 98 % MD Audrey Armstrong Work Phone: [facility] 01-19-2022 16:45-0400 Systolic blood pressure 148 mm[Hg] MD Audrey Armstrong Work Phone: [facility] 01-19-2022 15:04-0400 Body height 177.8 cm MD Audrey Armstrong Work Phone: [facility] 01-19-2022 15:04-0400 Body mass index (BMI) [Ratio] 31.2 kg/m2 MD Audrey Armstrong Work Phone: [facility] 01-19-2022 15:04-0400 Body weight 98.8 kg MD Audrey Armstrong Work Phone: [facility] 01-19-2022 14:24-0400 Body temperature 98.6 [degF] MD Audrey Armstrong Work Phone: [facility] 09-27-2021 09:44-0400 Body temperature 97.88 [degF] Audrey Armstrong Other Phone: [facility] 09-27-2021 09:44-0400 Diastolic blood pressure 74 mm[Hg] Audrey Hoy Other Phone: [facility] 09-27-2021 09:44-0400 Heart rate 89 /min Audrey Hoy Other Phone: [facility] 09-27-2021 09:44-0400 Respiratory rate 18 /min Audrey Hoy Other Phone: [facility] 09-27-2021 09:44-0400 SaO2% (BldA) [Mass fraction] 94 % Audrey Hoy Other Phone: [facility] 09-27-2021 09:44-0400 Systolic blood pressure 149 mm[Hg] Audrey Hoy Other Phone: [facility] 03-16-2021 08:34-0400 Body weight 101.86 kg No PCP None [facility] [facility] Work Phone: 03-16-2021 08:34-0400 Diastolic blood pressure 90 mm[Hg] No PCP None [facility] Work Phone: 03-16-2021 08:34-0400 Heart rate 80 /min No PCP None [facility] Work Phone: 03-16-2021 08:34-0400 Respiratory rate 17 /min No PCP None [facility] Work Phone: 03-16-2021 08:34-0400 Systolic blood pressure 166 mm[Hg] No PCP None [facility] Work Phone: Encounters Encounter Date Encounter Type Care Provider Facility Start: 04-13-2024 ambulatory Shun MACHADO Facility :[facility] Start: 04-08-2023 End: 04-09-2023 ambulatory Shun MACHADO Facility:[facility] Start: 04-08-2023 End: 04-08-2023 Patient encounter procedure Shun MACHADO [facility] [place] Start: 03-12-2023 End: 03-12-2023 ambulatory ANTWAN SORIANO Facility:[facility] Start: 02-19-2023 End: 02-19-2023 ambulatory Audrey Armstrong Facility:[facility] Start: 02-19-2023 End: 02-19-2023 ambulatory MD Audrey Armstrong Work Phone: [facility] Work Phone: Start: 02-19-2023 End: 02-19-2023 Patient encounter procedure MD Audrey Armstrong Work Phone: [facility] [address] Work Phone: Start: 10-16-2022 End: 10-17-2022 ambulatory Shun MACHADO Facility: [place] Start: 10-16-2022 End: 10-16-2022 Patient encounter procedure Shun MACHADO [facility] [place] Start: 10-15-2022 End: 10-15-2022 ambulatory Audrey Armstrong Facility:[facility] Start: 10-15-2022 End: 10-15-2022 ambulatory MD Audrey Armstrong Work Phone: [facility] Work Phone: Start: 10-15-2022 End: 10-15-2022 Patient encounter procedure MD Audrey Armstrong Work Phone: [facility] [address] Work Phone: Start: 10-02-2022 End: 10-03-2022 ambulatory Arely LOGAN Facility: [place] Start: 10-02-2022 End: 10-02-2022 Patient encounter procedure Arely LOGAN [facility] [place] Start: 09-11-2022 End: 09-11-[address] AUDREY ARMSTRONG . Facility:[facility] Start: 09-05-2022 ambulatory JENI SAEED Faci lity:[facility] Start: 08-31-2022 End: 09-01-[address] ARELY LOGAN . Facility:[facility] Start: 08-27-2022 Chart Update Audrey Armstrong Work Phone: [facility] Work Phone: Start: 08-16-2022 End: 08-17-2022 ambulatory WADE ALONSOEN Facility:[facility] Start: 07-19-2022 End: 07-20-2022 ambulatory WADE OMAR Facility:[facility] Start: 07-06-2022 End: 07-07-[address] ADUREY ARMSTRONG . Facility:[facility] Start: 06-19-2022 Encounter for preprocedural laboratory examination JENI SAEED [facility] Start: 06-07-2022 End: 06-08-[address] AUDREY ARMSTRONG . Facility:[facility] Start: 06-04-2022 End: 06-05-[address] AUDREY ARMSTRONG . Facility:[facility] Start: 06-04-2022 End: 06-05-2022 Encounter for preprocedural laboratory examination DR AUDREY ARMSTRONG . Facility:[facility] Start: 05-31-2022 Encounter for preprocedural cardiovascular examination JNEI SAEED [facility] Start: 05-25-2022 End: 05-26-2022 ambulatory JENI SAEED Facility:[facility] Start: 05-25-2022 End: 05-26-2022 Encounter for preprocedural cardiovascular examination JENI SAEED Facility:[facility] Start: 05-23-2022 End: 05-23-[address] AUDREY ARMSTRONG . Facility:[facility] Start: 05-23-2022 End: 05-23-2022 ambulatory MD Audrey Armstrong Work Phone: [facility] Work Phone: Start: 05-23-2022 End: 05-23-2022 Patient encounter procedure MD Audrey Armstrong Work Phone: [facility] [address] Start: 05-02-2022 ambulatory Mr. Kenton Lawson Fa cility:[facility] Start: 05-02-2022 Office outpatient vi sit 25 minutes Audrey Kassandra Leandra Work Phone: KF-Cvqlunvpogad-Lubmcrs 5FL DO Work Phone: Start: 03-30-2022 Encounter for genera l adult medical examination without abnormal findings DR AUDREY ARMSTRONG . [facility] Start: 03-28-2022 End: 03-29-[address] AUDREY ARMSTRONG . Facility:[facility] Start: 03-28-2022 End: 03-29-2022 Encounter for general adult medical examination without abnormal findings DR AUDREY ARMSTRONG . Facility:[facility] Start: 02-15-2022 End: 02-15-2022 Admission to same day surgery center MD Audrey Armstrong Work Phone: [facility] [place] Start: 02-14-2022 End: 02-15-2022 ambulatory JENI Trena SAEED Facility:[facility] Start: 02-13-2022 End: 02-13-2022 Patient encounter procedure MD Audrey Armstrong Work Phone: [facility]-Pre-Surgical Testing Start: 01-30-2022 End: 01-30-2022 Patient encounter procedure Shun MACHADO [facility] Start: 01-29-2022 End: 01-30-[address] AUDREY ARMSTRONG . Facility:[facility] Start: 01-29-2022 ambulatory Audrey Armstrong Fac ility:[facility] Start: 01-29-2022 Office outpatient vi sit 15 minutes Audrey Armstrong Work Phone: BP-Levkeiehprtv-Umusjbz 5FL DO Work Phone: Start: 01-29-2022 ambulatory Mr. Kenton Lawson Fa cility:[id number] Start: 01-24-2022 End: 01-24-2022 Patient encounter procedure Arely LOGAN [facility] [place] Start: 01-19-2022 End: 01-19-2022 Admission to same day surgery center MD Audrey Armstrong Work Phone: [facility] [place] Start: 01-17-2022 End: 01-17-2022 Patient encounter procedure MD Audrey Armstrong Work Phone: [facility]-Pre-Surgical Testing Start: 01-11-2022 End: 01-12-[address] SHUN MACHADO Facility:[facility] Start: 01-09-2022 End: 01-09-[address] LAURY ZEPEDA Facility:[facility] Start: 01-05-2022 End: 01-06-[address] AUDREY ARMSTRONG . Facility:[facility] Start: 12-27-2021 End: 12-28-[address] AUDREY ARMSTRONG . Facility:[facility] Start: 12-09-2021 End: 12-10-[address] AUDREY ARMSTRONG . Facility:[facility] Start: 11-09-2021 Chart Update Audrey Kassandra Armstrong Work Phone: MO-Cbzanqlvooht-[facility] [address] Work Phone: Start: 11-08-2021 Postop follow up vis it related to original px Audrey Cannon Leandra Work Phone: KM-Pvlrdpequsvt-Jhxzqhw 5FL DO Work Phone: Start: 11-08-2021 POV, Provider: Kenton Lawson, Status: Pen, Time: 11:00 AM Audreyharriet Armstrong Work Phone: WD-Wotmlycgwbpl-Jfhydd [facility] Work Phone: Start: 11-08-2021 ambulatory Audrey Armstrong Fac ility:[facility] Start: 11-07-2021 AUDIT Audrey Kassandra Leandra Work Phone: CB-Wqzsomttexje-Zucmny [address] Work Phone: Start: 09-26-2021 End: 09-27-2021 Evaluation and management of inpatient Sal Richardson [facility] [id number] Start: 09-19-2021 AUDIT Audrey Armstrong Work Phone: HN-Spllqrwpjvexqf-Lbd for Perioperative Med Work Phone: Start: 09-19-2021 ambulatory Audrey Rivera ility:[facility] Start: 09-19-2021 Encounter for blood typing Dr. SAL RICHARDSON [facility] Start: 09-19-2021 Encounter for preprocedural laboratory examination Dr. SAL RICHARDSON [facility] Start: 08-23-2021 Office outpatient vi sit 40 minutes Audrey Armstrong Work Phone: FR-Mbzftkcwkexz-Ybikmir ng[facility] Work Phone: Start: 08-23-2021 ambulatory Audrey Armstrong Fac ility:[facility] Start: 08-03-2021 Office outpatient vi sit 25 minutes Audrey Armstrong Work Phone: EA-Kapyioxziava-Bmdjed 210 Work Phone: Start: 08-03-2021 ambulatory Referral Self Facility: [id number] Start: 06-21-2021 End: 06-21-2021 ambulatory Audrey Armstrong Facility:[facility] Start: 06-02-2021 AUDIT No PCP None [facility] Work Phone: Start: 06-02-[address] SAL RICHARDSON Facility:[facility] Start: 06-02-[address] SAL RICHARDSON Facility:[facility] Start: 06-02-2021 Encounter for other preprocedural examination Dr. SAL RICHARDSON [facility] Start: 06-02-2021 Encounter for preprocedural cardiovascular examination Dr. SAL RICHARDSON [facility] Start: 05-03-2021 Office outpatient vi sit 40 minutes No PCP None TD-Nzzqnzozprdf-Icniepn ng-[facility] Work Phone: Start: 03-16-2021 NPV, Provider: Nazario Holloway, Status: Pen, Time: 8:30 AM No PCP None [facility] Work Phone: Start: 03-16-2021 Office outpatient ne w 30 minutes No PCP None [facility] Work Phone: Start: 03-16-2021 Patient encounter procedure No PCP None [facility] Work Phone: Start: 03-13-2021 Office consultation new/estab patient 80 min No PCP None [facility] Work Phone: Start: 03-10-2021 Chart Update No PCP None [facility] [address] Work Phone: Start: 03-06-2021 Telephone encounter No PCP None [facility] Work Phone: Start: 02-12-2021 Chart Update No PCP None [facility] [address] Work Phone: Start: 02-09-2021 Office outpatient ne w 45 minutes No PCP None RE-Jzqhslkjcjxw-Nutvpq 210 Work Phone: Start: 02-08-2021 AUDIT No PCP None [facility] [address] Work Phone: Procedures Date Procedure Procedure Detail Performing Clinician Start: 06-07-2022 Fusion of Right Tars al Joint with Synthetic Substitute, Open Approach JENI SAEED Start: 06-07-2022 Transfer Right Foot Tendon, Open Approach JENI SAEED Start: 03-28-2022 PSA screening JENI CONNOR Comment on above: Performed By: #### P [facility] #### [facility] [address] [place] [address] Dr. Carolyn King Start: 02-15-2022 Cystoscopy MD Audrey Armstrong Work Phone: Start: 02-15-2022 Diagnostic radiograp hy of abdomen MD Audrey Armstrong Work Phone: Start: 01-19-2022 Extracorporeal shock wave lithotripsy MD Audrey Armstrong Work Phone: Start: 01-19-2022 Diagnostic radiograp hy of abdomen MD Audrey Armstrong Work Phone: Start: 01-19-2022 Extracorporeal shock wave lithotripsy of calculus of kidney Shun MACHADO Start: 01-19-2022 Lithotripsy Arely MEJIA Start: 01-17-2022 Plain chest X-ray MD Petit gabriel Armstrong Work Phone: Start: 09-19-[address] ASIA RICHARDSON Comment on above: Performed By: #### T +S #### [facility] [address] [place] [address] Start: 06-02-[address] ASIA RICHARDSON Comment on above: Performed By: #### U A #### [facility] [address] [place] [address] Arthroplasty of knee Arely NILL Colonoscopy Arely NILL Excision of cervical intervertebral disc Arely NILL Excision of melanoma Arely NILL Fusion of lateral jeff mbar interbody Arely NILL Fusion of tarsal joints Ricardo ael NILL Plan of Treatment Date Care Activity Detail Author Start: 02-19-2023 Hemolytic complement CH50 [facility] Start: 10-15-2022 Hemolytic complement CH50 [facility] Start: 09-26-2022 FUV, Provider: Kenton Lawson, Status: Pen, Time: 9:30 AM FUV, Provider: Kenton Lawson, Status: Pen, Time: 9:30 AM LK-Zvchmzqxugoj-Moxavsc 5FL DO Work Phone: Start: 05-23-2022 Hemolytic complement CH50 level [facility] Start: 05-02-2022 FUV, Provider: Kenton Lawson, Status: Pen, Time: 9:00 AM FUV, Provider: Kenton Lawson, Status: Pen, Time: 9:00 AM MU-Sskalpqhzvgu-Pudcmza 5FL DO Work Phone: Start: 02-15-2022 End: 02-15-2022 [facility] Work Phone: Start: 02-15-2022 Cystoscopy OR Cysto/Retro/Stent/Ston e/Holmium [facility] [facility] Start: 02-15-2022 Diagnostic radiograp hy of abdomen XR KUB [facility] Start: 02-15-2022 End: 02-15-2022 Admission to same day surgery center Departed Surgical Day Care [facility] [place] Start: 02-13-2022 End: 02-13-2022 Patient encounter procedure Departed Clinical [facility] Start: 01-19-2022 End: 01-19-2022 [facility] Work Phone: Start: 01-15-2022 FUV, Provider: Kenton Lawson, Status: Pen, Time: 10:00 AM FUV, Provider: Kenton Lawson, Status: Pen, Time: 10:00 AM CN-Fhrtdullpuxg-Kmxrymq 5FL DO Work Phone: Start: 11-08-2021 Patient encounter procedure [facility] Start: 09-27-2021 End: 09-28-2022 Sodium Chloride 0.9% Injectable Flush Peripheral Line ; via Peripheral LineVolume = 10 mL IntraVenous Flush Every 8 Hours and as Needed Start: 27-Sep-2021 End: 27-Sep-2022 Ordered: 27-Sep-2021 Timothy Steinberg [facility] Start: 09-27-2021 End: 09-28-2022 oxyCODONE Immediate Release 10 mg Oral Tablet Every 4 Hours ; Tablet (OXYIR, ROXICODONE)DOSE = 10 mg Oral Every 4 Hours, PRN Pain - Severe (7-10) Start: 27-Sep-2021 End: 27-Sep-2022 Ordered: 27-Sep-2021 Timothy Steinberg [facility] Start: 09-26-2021 End: 09-27-2022 [facility] Comment on above: 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 immediately Start: 09-26-2021 SURGC, Provider: Sal Richardson, Status: Pen, Time: 7:30 AM SURGCMC, Provider: Sal Richardson, Status: Pen, Time: 7:30 AM JD-Fpghcuoygeuula-Xov for Perioperative Med Work Phone: Start: 08-30-2021 FUV, Provider: Sal Richardson, Status: Pen, Time: 11:15 AM FUV, Provider: Sal Richardson, Status: Pen, Time: 11:15 AM FC-Kdpoevblpejy-Xdoqnx 210 Work Phone: Start: 08-30-2021 FUV, Provider: Sal Richardson, Status: Pen, Time: 11:00 AM FUV, Provider: Sal Richardson, Status: Pen, Time: 11:00 AM DQ-Qiqlnjnlvuwl-Hbsnkk 210 Work Phone: Start: 06-09-2021 SURGC, Provider: Sal Richardson, Status: Pen, Time: 7:30 AM SURGCMC, Provider: Sal Richardson, Status: Pen, Time: 7:30 AM PY-Sxtuidvfdcnqxw-Kez for Perioperative Med Work Phone: Start: 03-22-2021 SURGWEST, Provider: Nazario Holloway, Status: Pen, Time: 9:40 AM SURGWEST, Provider: Nazario Holloway, Status: Pen, Time: 9:40 AM [facility] Work Phone: Start: 03-13-2021 FUV, Provider: Sal Richardson, Status: Pen, Time: 2:15 PM FUV, Provider: Sal Richardson, Status: Pen, Time: 2:15 PM WZ-Utcsczadysbf-Tybkfx 210 Work Phone: Complement C3 [Mass/volume] in Serum or Plasma [facility] Work Phone: Complement C3 [Mass/volume] in Serum or Plasma [facility] Complement C4 [Mass/volume] in Serum or Plasma [facility] Work Phone: Complement C4 [Mass/volume] in Serum or Plasma [facility] Hemolytic complement CH50 level [facility] Work Phone: Patient referral [facility] Work Phone: Immunizations Immunization Date Immunization Notes Care Provider [facility] 03-27-2022 influenza virus vaccine, unspecified formulation Arely LOGAN [facility] 11-21-2021 SARS-CoV-2 mRNA (rufycrbkxjh-dfkb-ktvh ose) vaccine Arely LOGAN [facility] 09-22-2021 SARS-CoV-2 (COVID-19 ) mRNA BNT-162b2 vax Arely LOGAN [facility] 06-26-2021 Pfizer-BioNTech COVID-19 Vacc 30 MCG/0.3ML Intramuscular Suspension Audrey M Atnhonypatrick Work Phone: [facility] 05-01-2021 influenza virus vaccine, unspecified formulation Shun CHRIS [facility] 05-01-2021 Influenza, injectabl e, Madin [place] Canine Kidney, preservative free, quadrivalent Audrey Armstrong Work Phone: YY-Nhcrfcloppcz-Kh sman 210 Work Phone: 10-06-2020 Pfizer-BioNTech COVID-19 Vacc 30 MCG/0.3ML Intramuscular Suspension No PCP None [facility] 09-13-2020 Pfizer-BioNTech COVID-19 Vacc 30 MCG/0.3ML Intramuscular Suspension No PCP None [facility] 06-24-2020 SARS-CoV-2 (COVID-19 ) mRNA BNT-162b2 vax Arely LOGAN [facility] 05-04-2020 influenza virus vaccine, unspecified formulation Shun MACHADO [facility] 05-04-2020 Influenza, injectabl e, Madin Charissa Canine Kidney, preservative free, quadrivalent No PCP None XC-Jjwmnpmftvri-Wk sman 210 Work Phone: 05-04-2020 pneumococcal conjuga te vaccine, 13 valent No PCP None [facility] 04-06-2020 influenza virus vaccine, unspecified formulation Shun MACHADO [facility] 04-06-2020 influenza, seasonal, injectable No PCP None TL-Djqohdzixanc-Hu sman 210 Work Phone: 10-25-2011 hepatitis A vaccine, adult dosage No PCP None [facility] 10-25-2011 hepatitis B vaccine, pediatric or pediatric/adolescent dosage No PCP None [facility] 03-30-2011 hepatitis A vaccine, adult dosage No PCP None [facility] 03-30-2011 hepatitis B vaccine, pediatric or pediatric/adolescent dosage No PCP None [facility] 02-15-2011 hepatitis B vaccine, pediatric or pediatric/adolescent dosage No PCP None [facility] 01-20-1998 hepatitis B vaccine, adult dosage No PCP None [facility] 02-24-1997 hepatitis B vaccine, adult dosage No PCP None [facility] 11-11-1996 hepatitis B vaccine, adult dosage No PCP None [facility] 11-02-1996 TD(adult) unspecifie d formulation; Translations: [Td(adult) unspecified formulation] No PCP None [facility] NEGATED: Highlighted row has not occurred!04-15-2019 influenza virus vaccine, unspecified formulation Arely LOGAN [facility] [place] Payers Date Payer Category Payer Unknown [id number] 2022 Medicare [id number] 2022 Self-pay [id number] 1960 Unknown [id number] 2.16. 840.1.920313.3.579.2.356 1961 Unknown [id number] 2.16. 840.1.696706.3.579.2.356 1961 Unknown [id number] 2.16. 840.1.314788.3.579.2.356 1961 Unknown [id number] 2.16. 840.1.877491.3.579.2.356 1961 Unknown [id number] 2.16. 840.1.529101.3.579.2.356 1961 Unknown [id number] 2.16. 840.1.854488.3.579.2.356 1961 Unknown [id number] 2.16. 840.1.376828.3.579.2.356 1961 Unknown [id number] 2.16. 840.1.974740.3.579.2.356 1961 Unknown [id number] 2.16. 840.1.032569.3.579.2.356 1961 Unknown [id number] 2.16. 840.1.432275.3.579.2.356 1961 Unknown [id number] 2.16. 840.1.211989.3.579.2.356 1961 Unknown [id number] 2.16. 840.1.910411.3.579.2.356 1961 Unknown [id number] 2.16. 840.1.661972.3.579.2.356 1961 Unknown [id number] 2.16. 840.1.186304.3.579.2.356 1961 Unknown [id number] 2.16.84 0.1.008675.3.579.2.593 1961 Unknown [id number] 2.16.84 0.1.823361.3.579.2.593 1961 Unknown [id number] 2.16.84 0.1.238806.3.579.2.593 1961 Unknown [id number] 2.16.84 0.1.947314.3.579.2.593 1961 Unknown [id number] 2.16.84 0.1.313774.3.579.2.593 1961 Unknown [id number] 2.16.84 0.1.406209.3.579.2.593 1961 Unknown [id number] 2.16.84 0.1.591546.3.579.2.593 1961 Unknown [id number] 2.16.84 0.1.905452.3.579.2.593 1961 Unknown [id number] 2.16.84 0.1.253986.3.579.2.593 1961 Unknown [id number] 2.16.84 0.1.199155.3.579.2.593 1961 Unknown [id number] 2.16.84 0.1.693595.3.579.2.593 1961 Unknown [id number] 2.16.84 0.1.179430.3.579.2.593 1961 Unknown [id number] 2.16.84 0.1.449672.3.579.2.593 1961 Unknown [id number] 2.16.84 0.1.172105.3.579.2.593 1961 Unknown [id number] 2.16.84 0.1.236143.3.579.2.593 1961 Unknown [id number] 2.16.84 0.1.823885.3.579.2.593 1961 Unknown [id number] 2.16.84 0.1.656206.3.579.2.593 1961 Unknown [id number] 2.16.84 0.1.993049.3.579.2.593 1961 Unknown [id number] 2.16.84 0.1.250455.3.579.2.593 1961 Unknown [id number] 2.16.8 40.1.406412.3.579.2.727 1961 Unknown [id number] 2.16.8 40.1.299264.3.579.2.727 1961 Unknown [id number] 2.16.8 40.1.710811.3.579.2.727 1961 Unknown [id number] 2.16.8 40.1.763758.3.579.2.727 1959 Unknown [id number] 1959 Unknown [id number] Unknown Unknown O [id number] Unknown [id number] Unknown [id number] 2.16.8 40.1.859001.3.579.2.531 Unknown [id number] 2.16.8 40.1.796500.3.579.2.531 Unknown [id number] 2.16.8 40.1.199374.3.579.2.531 Social History Date Type Detail Facility [facility] Tobacco smoking consumption unknown [facility] Start: 01-24-2022 End: 04-08-2023 Tobacco smoking status Never smoked tobacco (finding) [facility] Work Phone: Tobacco smoking status Never [facility] [place] Sex Assigned At Male Genera l Surgery [employer] Start: 1960 Sex Assigned At Male F [facility] Medical Equipment Procedure Code Equipment Code Equipment Origin al Text Equipment Identifier Dates Cystoscopy, with ureteral calculus manipulation and stent placement Polymeric ureteral stent [id number] FDA Start: 02-15-2022 Cystoscopy, with ureteral calculus manipulation and stent placement Polymeric ureteral stent [id number] FDA Start: 01-19-2022 Goals Date Patient Goal Desired Activity /State Functional Status Date Assessment Result Facility 04-08-2023 Functional Status N/A [facility] 10-16-2022 Functional Status N/A [facility] 10-02-2022 Functional Status N/A [facility] 01-30-2022 Functional Status N/A [facility] 01-24-2022 Functional Status N/A [facility] Functional observable [facility] Mental Status Date Assessment Result Facility 09-26-2021 Cognitive functions 27-Sep-19 2212:26 [facility] Clinical Notes 10-31-2020 to 04-08-2023 RadiologyRadiology<item><item><item><item><item><item><item> Note Date & Type Note Facility 04-08-2023 Hospital Discharge instructions Patient Education 04/08/2023 11:15:31 Dietary Guidelines to Help Prevent Kidney Stones Dietary Guidelines to Help Prevent Kidney Stones Kidney stones are deposits of minerals and salts that form inside your kidneys. Your risk of developing kidney stones may be greater depending on your diet, your lifestyle, the medicines you take, and whether you have certain medical conditions. Most people can lower their chances of developing kidney stones by following the instructions below. Your dietitian may give you more specific instructions depending on your overall health and the type of kidney stones you tend to develop. What are tips for following this plan? Reading food labels Choose foods with no salt added or low-salt labels. Limit your salt (sodium) intake to less than 1,500 mg a day. Choose foods with calcium for each meal and snack. Try to eat about 300 mg of calcium at each meal. Foods that contain 200 500 mg of calcium a serving include: ?8 oz (237 mL) of milk, rucnunm-euzghjlsoiil-tbfmq milk, and calcium-fortifiedfruit juice. Calcium-fortified means that calcium has been added to these drinks. ?8 oz (237 mL) of kefir, yogurt, and soy yogurt. ?4 oz (114 g) of tofu. ?1 oz (28 g) of cheese. ?1 cup (150 g) of dried figs. ?1 cup (91 g) of cooked broccoli. ?One 3 oz (85 g) can of sardines or mackerel. Most people need 1,000 1,500 mg of calcium a day. Talk to your dietitian about how much calcium is recommended for you. Shopping Buy plenty of fresh fruits and vegetables. Most people do not need to avoid fruits and vegetables, even if these foods contain nutrients that may contribute to kidney stones. When shopping for convenience foods, choose: ?Whole pieces of fruit. ?Pre-made salads with dressing on the side. ?Low-fat fruit and yogurt smoothies. Avoid buying frozen meals or prepared deli foods. These can be high in sodium. Look for foods with live cultures, such as yogurt and kefir. Choose high-fiber grains, such as whole-wheat breads, oat bran, and wheat cereals. Cooking Do not add salt to food when cooking. Place a salt shaker on the table and allow each person to add his or her own salt to taste. Use vegetable protein, such as beans, textured vegetable protein (TVP), or tofu, instead of meat in pasta, casseroles, and soups. Meal planning Eat less salt, if told by your dietitian. To do this: ?Avoid eating processed or pre-made food. ?Avoid eating fast food. Eat less animal protein, including cheese, meat, poultry, or fish, if told by your dietitian. To do this: ?Limit the number of times you have meat, poultry, fish, or cheese each week. Eat a diet free of meat at least 2 days a week. ?Eat only one serving each day of meat, poultry, fish, or seafood. ?When you prepare animal protein, cut pieces into small portion sizes. For most meat and fish, one serving is about the size of the palm of your hand. Eat at least five servings of fresh fruits and vegetables each day. To do this: ?Keep fruits and vegetables on hand for snacks. ?Eat one piece of fruit or a handful of berries with breakfast. ?Have a salad and fruit at lunch. ?Have two kinds of vegetables at dinner. Limit foods that are high in a substance called oxalate. These include: ?Spinach (cooked), rhubarb, beets, sweet potatoes, and Taiwanese chard. ?Peanuts. ?Potato chips, macanese fries, and baked potatoes with skin on. ?Nuts and nut products. ?Chocolate. If you regularly take a diuretic medicine, make sure to eat at least 1 or 2 servings of fruits or vegetables that are high in potassium each day. These include: ?Avocado. ?Banana. ?Barron, prune, carrot, or tomato juice. ?Baked potato. ?Cabbage. ?Beans and split peas. Lifestyle Drink enough fluid to keep your urine pale yellow. This is the most important thing you can do. Spread your fluid intake throughout the day. If you drink alcohol: ?Limit how much you use to: ?0 1 drink a day for women who are not . ?0 2 drinks a day for men. ?Be aware of how much alcohol is in your drink. In the [place] one drink equals one 12 oz bottle of beer (355 mL), one 5 oz glass of wine (148 mL), or one 1 oz glass of hard liquor (44 mL). Lose weight if told by your health care provider. Work with your dietitian to find an eating plan and weight loss strategies that work best for you. General information Talk to your health care provider and dietitian about taking daily supplements. You may be told the following depending on your health and the cause of your kidney stones: ?Not to take supplements with vitamin C. ?To take a calcium supplement. ?To take a daily probiotic supplement. ?To take other supplements such as magnesium, fish oil, or vitamin B6. Take jqow-ecn-porusyo and prescription medicines only as told by your health care provider. These include supplements. What foods should I limit? Limit your intake of the following foods, or eat them as told by your dietitian. Vegetables Spinach. Rhubarb. Beets. Canned vegetables. Pickles. Olives. Baked potatoes with skin. Grains Wheat bran. Baked goods. Salted crackers. Cereals high in sugar. Meats and other proteins Nuts. Nut butters. Large portions of meat, poultry, or fish. Salted, precooked, or cured meats, such as sausages, meat loaves, and hot dogs. Dairy Cheese. Beverages Regular soft drinks. Regular vegetable juice. Seasonings and condiments Seasoning blends with salt. Salad dressings. Soy sauce. Ketchup. Barbecue sauce. Other foods Canned soups. Canned pasta sauce. Casseroles. Pizza. Lasagna. Frozen meals. Potato chips. Hebrew fries. The items listed above may not be a complete list of foods and beverages you should limit. Contact a dietitian for more information. What foods should I avoid? Talk to your dietitian about specific foods you should avoid based on the type of kidney stones you have and your overall health. Fruits Grapefruit. The item listed above may not be a complete list of foods and beverages you should avoid. Contact a dietitian for more information. Summary Kidney stones are deposits of minerals and salts that form inside your kidneys. You can lower your risk of kidney stones by making changes to your diet. The most important thing you can do is drink enough fluid. Drink enough fluid to keep your urine pale yellow. Talk to your dietitian about how much calcium you should have each day, and eat less salt and animal protein as told by your dietitian. This information is not intended to replace advice given to you by your health care provider. Make sure you discuss any questions you have with your health care provider. Document Revised: 02/19/2022 Document Reviewed: 02/19/2022 [employer] Patient Education 2022 [employer]. Follow Up Care 10/16/2022 15:04:55 With:CHRIS RIVERAShun, URL Address: [address] [place] [address]- When: Unknown [facility] 03-12-2023 Note HNO ID: [id number] Author: Antwan Soriano MD Service: ? Author Type: Physician Type: Progress Notes Filed: 03/12/2023 2:46 PM Note Text: March 12, 2023 HPI: Jay Carr is a 62 yo male with history of bilateral foot reconstruction surgeries on left JUN 2019 then MAY 2020. On right September 2020 then MAY 2022. Current issue is the right. Has Raynauds and SLE. Pain Descriptors: Duration: chronic Severity: moderate Quality: ache Location: foot, ankle Context: worse with activity and dependent position Modifying Factors: improved with rest and elevation Supporting Subjective Information Below: There is no height or weight on file to calculate BMI. Past Medical History PAST MEDICAL HISTORY Diagnosis Date Arthritis Kidney stones Lupus (HCC) Surgical History: PAST SURGICAL HISTORY Procedure Laterality Date KNEE SURGERY HX RECONSTRUCT ANKLE JOINT Left Family History: FAMILY HISTORY Problem Relation Age of Onset Cancer Father lung Macular Degen Mother Hypertension Mother Hypertension Brother Diabetes No Family History Medications: Current Outpatient Medications Medication Sig irbesartan (AVAPRO) 300 mg tablet Take 300 mg by mouth daily at bedtime. hydroxychloroquine (PLAQUENIL) 200 mg tablet Take 200 mg by mouth twice daily. celecoxib (CELEBREX) 200 mg capsule Take 200 mg by mouth twice daily. losartan (COZAAR) 25 mg tablet Take 25 mg by mouth once daily. NIFEdipine ER (PROCARDIA XL) 30 mg 24 hr tablet Take 30 mg by mouth once daily. pantoprazole DR (PROTONIX) 40 mg tablet Take 40 mg by mouth once daily. ascorbic acid (VITAMIN C ORAL) Take by mouth. ZINC ACETATE ORAL Take by mouth. HYDROcodone-acetaminophen (NORCO) 5-325 mg per tablet TAKE 1 TABLET BY MOUTH EVERY 4 HOURS NEEDED FOR PAIN (max 6 (SIX) TABLETS in 24 HOURS) (Patient not taking: Reported on 03/12/2023) docosahexaenoic acid/epa (FISH OIL ORAL) Take by mouth. (Patient not taking: Reported on 03/12/2023) No current facility-administered medications for this visit. Allergies: Penicillins Review Of Systems GENERAL:Negative for malaise, significant weight loss and fever HEENT:Negative for frequent or significant headaches, significant changes in vision or vision problems, significant ear problems or hearing loss, nasal discharge or nose bleeds and sore throat, difficulty swallowing, mouth lesions NECK:Negative for lumps, goiter, pain and significant neck swelling RESPIRATORY: Negative for cough, wheezing and shortness of breath CARDIOVASCULAR: Negative for chest pain, leg swelling and palpitations GASTROINTESTINAL: Negative for abdominal discomfort, blood in stools or black stools and change in bowel habits GENITOURINARY: Negative for dysuria, frequency and incontinence MUSCULOSKELETAL: Negative for joint pain or swelling, back pain, and muscle pain. NEUROLOGIC:Negative for focal numbness or weakness, headaches and dizziness. SKIN:Negative for lesions, rash, and itching. PSYCHIATRIC: Negative for sleep disturbance, mood disorder and recent psychosocial stressors. HEMATOLOGIC/LYMPHATIC/IMMUNOLOGIC:N egative for prolonged bleeding, bruising easily, and swollen nodes. ENDOCRINE: Negative for cold or heat intolerance, polyuria, polydipsia and goiter. Physical Exam: Basic physical examination reveals the patient to be in no acute distress. The patient is alert and oriented x 3 Mood and affect are appropriate. Head is atraumatic, normocephalic. Neck ROM grossly intact. Mucous membranes are moist. Eyes, ears, and nose are normal in appearance. Hearing is grossly intact. Breathing is unlabored with grossly normal chest motion. Limited Upper Extremity Exam: Shoulders with grossly intact ROM and strength, no obvious deformity. Elbows with grossly intact ROM and strength, no obvious deformity. Hand and wrist with grossly intact ROM and strength, no obvious deformity. Focused orthopaedic examination reveals the following: Skin intact without lesions. 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 Antwan Soriano MD [facility] 10-16-2022 Hospital Discharge instructions Patient Education 10/16/2022 13:00:41 Dietary Guidelines to Help Prevent Kidney Stones Dietary Guidelines to Help Prevent Kidney Stones Kidney stones are deposits of minerals and salts that form inside your kidneys. Your risk of developing kidney stones may be greater depending on your diet, your lifestyle, the medicines you take, and whether you have certain medical conditions. Most people can lower their chances of developing kidney stones by following the instructions below. Your dietitian may give you more specific instructions depending on your overall health and the type of kidney stones you tend to develop. What are tips for following this plan? Reading food labels Choose foods with no salt added or low-salt labels. Limit your salt (sodium) intake to less than 1,500 mg a day. Choose foods with calcium for each meal and snack. Try to eat about 300 mg of calcium at each meal. Foods that contain 200 500 mg of calcium a serving include: ?8 oz (237 mL) of milk, slmakkb-yfubfnqlhgbv-cylwp milk, and calcium-fortifiedfruit juice. Calcium-fortified means that calcium has been added to these drinks. ?8 oz (237 mL) of kefir, yogurt, and soy yogurt. ?4 oz (114 g) of tofu. ?1 oz (28 g) of cheese. ?1 cup (150 g) of dried figs. ?1 cup (91 g) of cooked broccoli. ?One 3 oz (85 g) can of sardines or mackerel. Most people need 1,000 1,500 mg of calcium a day. Talk to your dietitian about how much calcium is recommended for you. Shopping Buy plenty of fresh fruits and vegetables. Most people do not need to avoid fruits and vegetables, even if these foods contain nutrients that may contribute to kidney stones. When shopping for convenience foods, choose: ?Whole pieces of fruit. ?Pre-made salads with dressing on the side. ?Low-fat fruit and yogurt smoothies. Avoid buying frozen meals or prepared deli foods. These can be high in sodium. Look for foods with live cultures, such as yogurt and kefir. Choose high-fiber grains, such as whole-wheat breads, oat bran, and wheat cereals. Cooking Do not add salt to food when cooking. Place a salt shaker on the table and allow each person to add his or her own salt to taste. Use vegetable protein, such as beans, textured vegetable protein (TVP), or tofu, instead of meat in pasta, casseroles, and soups. Meal planning Eat less salt, if told by your dietitian. To do this: ?Avoid eating processed or pre-made food. ?Avoid eating fast food. Eat less animal protein, including cheese, meat, poultry, or fish, if told by your dietitian. To do this: ?Limit the number of times you have meat, poultry, fish, or cheese each week. Eat a diet free of meat at least 2 days a week. ?Eat only one serving each day of meat, poultry, fish, or seafood. ?When you prepare animal protein, cut pieces into small portion sizes. For most meat and fish, one serving is about the size of the palm of your hand. Eat at least five servings of fresh fruits and vegetables each day. To do this: ?Keep fruits and vegetables on hand for snacks. ?Eat one piece of fruit or a handful of berries with breakfast. ?Have a salad and fruit at lunch. ?Have two kinds of vegetables at dinner. Limit foods that are high in a substance called oxalate. These include: ?Spinach (cooked), rhubarb, beets, sweet potatoes, and Taiwanese chard. ?Peanuts. ?Potato chips, macanese fries, and baked potatoes with skin on. ?Nuts and nut products. ?Chocolate. If you regularly take a diuretic medicine, make sure to eat at least 1 or 2 servings of fruits or vegetables that are high in potassium each day. These include: ?Avocado. ?Banana. ?Barron, prune, carrot, or tomato juice. ?Baked potato. ?Cabbage. ?Beans and split peas. Lifestyle Drink enough fluid to keep your urine pale yellow. This is the most important thing you can do. Spread your fluid intake throughout the day. If you drink alcohol: ?Limit how much you use to: ?0 1 drink a day for women who are not . ?0 2 drinks a day for men. ?Be aware of how much alcohol is in your drink. In the [place] one drink equals one 12 oz bottle of beer (355 mL), one 5 oz glass of wine (148 mL), or one 1 oz glass of hard liquor (44 mL). Lose weight if told by your health care provider. Work with your dietitian to find an eating plan and weight loss strategies that work best for you. General information Talk to your health care provider and dietitian about taking daily supplements. You may be told the following depending on your health and the cause of your kidney stones: ?Not to take supplements with vitamin C. ?To take a calcium supplement. ?To take a daily probiotic supplement. ?To take other supplements such as magnesium, fish oil, or vitamin B6. Take nvws-drq-lfwslsl and prescription medicines only as told by your health care provider. These include supplements. What foods should I limit? Limit your intake of the following foods, or eat them as told by your dietitian. Vegetables Spinach. Rhubarb. Beets. Canned vegetables. Pickles. Olives. Baked potatoes with skin. Grains Wheat bran. Baked goods. Salted crackers. Cereals high in sugar. Meats and other proteins Nuts. Nut butters. Large portions of meat, poultry, or fish. Salted, precooked, or cured meats, such as sausages, meat loaves, and hot dogs. Dairy Cheese. Beverages Regular soft drinks. Regular vegetable juice. Seasonings and condiments Seasoning blends with salt. Salad dressings. Soy sauce. Ketchup. Barbecue sauce. Other foods Canned soups. Canned pasta sauce. Casseroles. Pizza. Lasagna. Frozen meals. Potato chips. Hebrew fries. The items listed above may not be a complete list of foods and beverages you should limit. Contact a dietitian for more information. What foods should I avoid? Talk to your dietitian about specific foods you should avoid based on the type of kidney stones you have and your overall health. Fruits Grapefruit. The item listed above may not be a complete list of foods and beverages you should avoid. Contact a dietitian for more information. Summary Kidney stones are deposits of minerals and salts that form inside your kidneys. You can lower your risk of kidney stones by making changes to your diet. The most important thing you can do is drink enough fluid. Drink enough fluid to keep your urine pale yellow. Talk to your dietitian about how much calcium you should have each day, and eat less salt and animal protein as told by your dietitian. This information is not intended to replace advice given to you by your health care provider. Make sure you discuss any questions you have with your health care provider. Document Revised: 02/19/2022 Document Reviewed: 02/19/2022 [employer] Patient Education 2022 [employer]. Follow Up Care 02/19/2022 10:35:10 With:CHRIS RIVERA, Shun Mirza, URL Address: [facility] [address] [place] [address]- When: Unknown [facility] [place] 08-16-2022 Note PROCEDURE: XR FOOT R T MIN 3 VIEWS HISTORY: Pain in right foot COMPARISON: XR foot right 07/19/2022 FINDINGS: BONES:Prior talocalcaneal fusion and medial midfoot fusion; no appreciable hardware fracture or loosening. SOFT TISSUES:Moderate soft tissue swelling surrounding ankle and foot. EFFUSION:None visible. OTHER: Negative. IMPRESSION: 1. Stable surgical changes without evidence of hardware failure or change in alignment. Electronically authenticated by: LAURY ZEPEDA Date: 2022-08-16 18:55 [facility] 07-19-2022 Note PROCEDURE: XR FOOT R T MIN 3 VIEWS HISTORY: Pain in right foot COMPARISON: XR foot right 07/06/2022 FINDINGS: BONES:Hindfoot and medial midfoot fusion without evidence of hardware fracture or loosening. SOFT TISSUES:Moderate soft tissue swelling surrounding the foot and ankle. Skin antonio have been removed. EFFUSION:None visible. OTHER: Negative. IMPRESSION: 1. Stable surgical changes without evidence of hardware failure or change in alignment. Electronically authenticated by: LAURY ZEPEDA Date: 2022-07-19 12:30 [facility] 07-06-2022 Note PROCEDURE: XR FOOT R T MIN 3 VIEWS HISTORY: Pain in right foot COMPARISON: XR foot right 06/07/2022 FINDINGS: BONES:Mechanical fusion of the medial midfoot through the talus and fusion of the hindfoot. Anterior calcaneal osteotomy. No hardware loosening, fracture, or bone fracture. SOFT TISSUES:Soft tissue swelling surrounding the foot with skin antonio anterior and lateral to the proximal foot. EFFUSION:None visible. OTHER: Negative. IMPRESSION: 1. Stable surgical changes without evidence of hardware failure or change in alignment. 2. Cast material has been removed. Electronically authenticated by: LAURY ZEPEDA Date: 2022-07-06 15:41 [facility] 06-07-2022 Note PROCEDURE: XR ANKLE RT MIN 3 VIEWS, XR FOOT RT MIN 3 VIEWS COMPARISON: 02/14/2022 HISTORY: Pain FINDINGS: BONES:Revision of first metatarsal-phalangeal joint fusion. Subtalar fusion with 2 cannulated screws. Placement of strut extending proximally from the talus through the midfoot into the first metatarsal. Single screw medial midfoot is unchanged. Stable degenerative changes with mild plantar enthesopathic spurring and degenerative change at the tarsometatarsal joints SOFT TISSUES:Soft tissue swelling, subcutaneous emphysema and surgical skin antonio EFFUSION:. OTHER: Negative. IMPRESSION: Revision of foot fusion as detailed above Electronically authenticated by: BANDAR SAENZ Date: 2022-06-07 14:32 [facility] 06-07-2022 Note PROCEDURE: XR ANKLE RT MIN 3 VIEWS, XR FOOT RT MIN 3 VIEWS COMPARISON: 02/14/2022 HISTORY: Pain FINDINGS: BONES:Revision of first metatarsal-phalangeal joint fusion. Subtalar fusion with 2 cannulated screws. Placement of strut extending proximally from the talus through the midfoot into the first metatarsal. Single screw medial midfoot is unchanged. Stable degenerative changes with mild plantar enthesopathic spurring and degenerative change at the tarsometatarsal joints SOFT TISSUES:Soft tissue swelling, subcutaneous emphysema and surgical skin antonio EFFUSION:. OTHER: Negative. IMPRESSION: Revision of foot fusion as detailed above Electronically authenticated by: BANDAR SAENZ Date: 2022-06-07 14:32 [facility] 01-30-2022 Hospital Discharge instructions Patient Education 01/30/2022 09:28:00 Dietary Guidelines to Help Prevent Kidney Stones Dietary Guidelines to Help Prevent Kidney Stones Kidney stones are deposits of minerals and salts that form inside your kidneys. Your risk of developing kidney stones may be greater depending on your diet, your lifestyle, the medicines you take, and whether you have certain medical conditions. Most people can reduce their chances of developing kidney stones by following the instructions below. Depending on your overall health and the type of kidney stones you tend to develop, your dietitian may give you more specific instructions. What are tips for following this plan? Reading food labels Choose foods with no salt added or low-salt labels. Limit your sodium intake to less than 1500 mg per day. Choose foods with calcium for each meal and snack. Try to eat about 300 mg of calcium at each meal. Foods that contain 200 500 mg of calcium per serving include: ?8 oz (237 ml) of milk, fortified nondairy milk, and fortified fruit juice. ?8 oz (237 ml) of kefir, yogurt, and soy yogurt. ?4 oz (118 ml) of tofu. ?1 oz of cheese. ?1 cup (300 g) of dried figs. ?1 cup (91 g) of cooked broccoli. ?1 3 oz can of sardines or mackerel. Most people need 1000 to 1500 mg of calcium each day. Talk to your dietitian about how much calcium is recommended for you. Shopping Buy plenty of fresh fruits and vegetables. Most people do not need to avoid fruits and vegetables, even if they contain nutrients that may contribute to kidney stones. When shopping for convenience foods, choose: ?Whole pieces of fruit. ?Premade salads with dressing on the side. ?Low-fat fruit and yogurt smoothies. Avoid buying frozen meals or prepared deli foods. Look for foods with live cultures, such as yogurt and kefir. Cooking Do not add salt to food when cooking. Place a salt shaker on the table and allow each person to add his or her own salt to taste. Use vegetable protein, such as beans, textured vegetable protein (TVP), or tofu instead of meat in pasta, casseroles, and soups. Meal planning Eat less salt, if told by your dietitian. To do this: ?Avoid eating processed or premade food. ?Avoid eating fast food. Eat less animal protein, including cheese, meat, poultry, or fish, if told by your dietitian. To do this: ?Limit the number of times you have meat, poultry, fish, or cheese each week. Eat a diet free of meat at least 2 days a week. ?Eat only one serving each day of meat, poultry, fish, or seafood. ?When you prepare animal protein, cut pieces into small portion sizes. For most meat and fish, one serving is about the size of one deck of cards. Eat at least 5 servings of fresh fruits and vegetables each day. To do this: ?Keep fruits and vegetables on hand for snacks. ?Eat 1 piece of fruit or a handful of berries with breakfast. ?Have a salad and fruit at lunch. ?Have two kinds of vegetables at dinner. Limit foods that are high in a substance called oxalate. These include: ?Spinach. ?Rhubarb. ?Beets. ?Potato chips and macanese fries. ?Nuts. If you regularly take a diuretic medicine, make sure to eat at least 1 2 fruits or vegetables high in potassium each day. These include: ?Avocado. ?Banana. ?Barron, prune, carrot, or tomato juice. ?Baked potato. ?Cabbage. ?Beans and split peas. General instructions Drink enough fluid to keep your urine clear or pale yellow. This is the most important thing you can do. Talk to your health care provider and dietitian about taking daily supplements. Depending on your health and the cause of your kidney stones, you may be advised: ?Not to take supplements with vitamin C. ?To take a calcium supplement. ?To take a daily probiotic supplement. ?To take other supplements such as magnesium, fish oil, or vitamin B6. Take all medicines and supplements as told by your health care provider. Limit alcohol intake to no more than 1 drink a day for non women and 2 drinks a day for men. One drink equals 12 oz of beer, 5 oz of wine, or 1 oz of hard liquor. Lose weight if told by your health care provider. Work with your dietitian to find strategies and an eating plan that works best for you. What foods are not recommended? Limit your intake of the following foods, or as told by your dietitian. Talk to your dietitian about specific foods you should avoid based on the type of kidney stones and your overall health. Grains Breads. Bagels. Rolls. Baked goods. Salted crackers. Cereal. Pasta. Vegetables Spinach. Rhubarb. Beets. Canned vegetables. Pickles. Olives. Meats and other protein foods Nuts. Nut butters. Large portions of meat, poultry, or fish. Salted or cured meats. Deli meats. Hot dogs. Sausages. Dairy Cheese. Beverages Regular soft drinks. Regular vegetable juice. Seasonings and other foods Seasoning blends with salt. Salad dressings. Canned soups. Soy sauce. Ketchup. Barbecue sauce. Canned pasta sauce. Casseroles. Pizza. Lasagna. Frozen meals. Potato chips. Hebrew fries. Summary You can reduce your risk of kidney stones by making changes to your diet. The most important thing you can do is drink enough fluid. You should drink enough fluid to keep your urine clear or pale yellow. Ask your health care provider or dietitian how much protein from animal sources you should eat each day, and also how much salt and calcium you should have each day. This information is not intended to replace advice given to you by your health care provider. Make sure you discuss any questions you have with your health care provider. Document Released: 10/05/2011 Document Revised: 09/30/2019 Document Reviewed: 05/21/2017 [employer] Patient Education 2020 [employer]. Follow Up Care 01/24/2022 12:02:31 With:CHRIS RIVERA, Shun Mirza, URL Address: [address] [place] [id number]- When: Unknown [facility] [place] 09-27-2021 Note Send Summary: Discharge Summary Providers: Provider RoleProvider Name Sal Perez Nicholas PrimaryHoy, Douglas M Note Recipients: Audrey Armstrong MD - [id number] [] Discharge: Summary: Admission Date: .26-Sep-2021 06:01:00 Discharge Date: 27-Sep-2021 Attending Physician at Discharge: Chinmay Miranda Admission Reason: Lumbar stenosis Final Discharge Diagnoses: Lumbar stenosis Procedures: Date: 26-Sep-2021 15:08:00 Procedure Name: 1. XLIF L3/4, 4/5 2. Navigated percutaneous PSIF L3-5 Condition at Discharge: Satisfactory Disposition at Discharge: .Home Hospital Course: 61 year-old male who presented with lumbar stenosis. Patient is now s/p L3/4-4/5 XLIF, L3-5 PSIF on 09/[address] Richardson. On the day of surgery, patient was identified in the pre-operative holding area and agreeable to proceed with surgery. Written consent was obtained. Please see operative note for further details of this procedure. Patient received 24 hours of magy-operative IV antibiotics and 24 hours of IV steroids. Patient recovered in the PACU before transfer to a regular nursing floor. Patient was initially started on dilaudid PHARMACEUTICAL PROCESS ENGINEER x24 hours and then transitioned to an oral regimen consisting of oxycodone and tylenol for pain control. Goodrich catheter was removed on POD1. Surgical drain output was monitored every 8 hours and the drain removed when output had appropriately decreased. Physical therapy recommended continued recovery at home with continued physical therapy and wound care. On the day of discharge, patient was afebrile with stable vital signs. Patient was neurovascularly intact at time of discharge. Prescription for oxycodone 5mg every 6 hours (# 42) provided due to exceedingly painful nature of surgical procedure. Patients undergoing these operations typically use 1-2 pills q4-6 hours for the first 1-2 weeks. The use will be monitored postoperatively by Dr. Richardson, and weaned appropriately during the recovery period. Patient will follow-up with Dr. Richardson in 3 weeks for post-operative visit.. Discharge Information: and Continuing Care: Lab Results - Pending: None Radiology Results - Pending: Xray Fluoro Spine at 26-Sep-2021 14:40:00 Discharge Instructions: Activity: activity as tolerated PROGRESSIVE WALKING AT LEAST 2X/DAY. May not shower. NO SHOWERING UNTIL ANTONIO REMOVED IN 3WKS. May not return to school/work until follow-up visit with. Dr. Richardson May not drive while taking narcotics. No pushing, pulling, or lifting objects greater than 10 pounds. Weight-bearing Instructions: full weight bearing. NO EXCESSIVE BENDING/TWISTING, NO HEAVY HOUSE/YARD WORK Nutrition/Diet: resume normal diet Wound Care: Wound Site: Lateral/ Flank Wound Type: surgical incision Change Dressing: daily UNTIL NO LONGER DRAINING, THEN YOU CAN LEAVE THE DRSG. OFF Cover With: abdominal dressing Tape With: paper tape Instructions: no lotions, creams, or tub soaks Other Instructions: PLEASE HAVE ANTONIO REMOVED IN 3 WKS. AT [facility] [address] [facility] 5TH FLOOR ON 10/18/2021 AT 0930 WITH KENTON SANTIAGO. REHAB FACILITIES OR HOME CARE MAY REMOVE ANTONIO OR SUTURES. Wound Site: BACK (Lumbar Spine) Wound Type: surgical incision Change Dressing: daily Cleanse With: soap and water Cover With: abdominal dressing Tape With: paper tape Instructions: no lotions, creams, or tub soaks Other Instructions: PLEASE HAVE ANTONIO REMOVED IN 3 WKS. AT [facility] [address] [facility] 5TH FLOOR ON 10/18/2021 AT 0930 WITH KENTON SANTIAGO. REHAB FACILITIES OR HOME CARE MAY REMOVE ANTONIO OR SUTURES. Additional Orders: Additional Instructions: MAY USE HEAT OR ICE TO YOUR BACK AND OR INCISIONS NEEDED FOR COMFORT NO NSAIDS (ADVIL, IBUPROFEN, ALEVE... ETC.) FOR 10-12 WEEKS, THEY HAVE A BAD EFFECT ON HEALING OF FUSION. Follow Up Appointments: Follow-Up Appointment 01: Physician/Dept/Service: Dr. Sal Richardson/ Orthopaedic Surgery/ Spine Reason for Referral: Postoperative Follow-Up Appointment Call to Schedule in: 6 weeks, PLEASE CALL [phone] TO SCHEDULE YOUR APPOINTMENT FOR 5-6 WEEKS FOLLOWING YOUR SURGERY. Location: [facility] [address] [facility] 5TH [place] [place] [address] [place] [address]/ [facility] [address], Phone Number: Office: (September,./[place]) - [phone] Discharge Medications: Home Medication NIFEdipine 30 mg oral tablet, extended release - 1 tab(s) oral once a day pantoprazole 40 mg oral delayed release tablet - 1 tab(s) oral once a day irbesartan 300 mg oral tablet - 1 tab(s) oral once a day hydroxychloroquine 200 mg oral tablet - 1 tab(s) oral 2 times a day Zinc 140 mg (as elemental zinc 50 mg) oral tablet - 1 tab(s) oral once a day Vitamin D3 - 1 3 times a day Vitamin C - 1 3 times a day oxyCODONE 5 mg oral tablet - 1-2 tab(s) orally every (more content not included)... [facility] 09-27-2021 Note Rehab: Info: Mode of Treatmentoccupational therapy; co-evaluation with PT for pt safety and to optimize pt's therapeutic potential Time IN10:00 Time OUT10:27 Total Treatment [id number] Patient in ... at end of sessionchair; alarm on Communicated with ... at end of sessionbedside nurse Patient Effortexcellent Symptoms Noted During/After Treatmentnone Patient Profile Reviewedyes Onset of Illness/Injury or Date of [id number] Reason for ReferralXLIF L3/4, 4/5;2. Navigated percutaneous PSIF L3-5 General Observations of PatientPt appropriate per RN to participate. Pt generally pleasant and motivated Pertinent History of Current Functional ProblemPMH: Jun 13 ACDF C5/6, GERD, HTN, R TKA, lupus Hearing Precautions/LimitationsWFL Precautions/Limitationsspinal precautions; WBAT; fall precautions Ambulation Skills - Previous Level of Functionindependent community ambulator per pt. report, amb length limited since 2019; previously walking 10-15 miles/day Transfer Skills - Previous Level of Functionindependent ADL Skills - Previous Level of Functionindependent Work/Leisure Activity - Previous Level of Functionindependent; currently on disability; enjoys wood working. (+) drives Living Arrangementshouse Lives Withspouse; works afternoons and is available for assistance during the day Home Accessibilityfirst floor set up available; grab bars present (bathtub); grab bars present (toilet); ramps present at home Type of Equipment Currently In the Homeshower chair; standard walker Line and TubesIV Vision/Cognition: Affect/Mental Status (Cognitive)WFL Orientation Status (Cognition)oriented x 4 Cognition TestsbCAM negative Able to Follow Commands (Receptive)WFL ROM: Upper Extremity: Range of MotionBUE ROM WFL MMT: Upper Extremity: Manual Muscle Testing (MMT)BUE strength WFL Mobility/Tone: Bed Mobility Assessment/Interventionssupine to sit Pbkxwq-jt-Dsa Miller (Bed Mobility)standby assist; verbal cues Assistive Device (Bed Mobility)bed rails Comment, Bed MobilityVia log rolling technique Transfer Assessment/Interventionssit to stand transfer; stand to sit transfer Sit-Stand Miller (Transfers)standby assist; verbal cues Sit-Stand Assistive Device (Transfers)no AD Stand-Sit Miller (Transfers)standby assist; verbal cues Stand-Sit Assistive Device (Transfers)no AD Safety Issues Impacting Function (Mobility)insight into deficits/self awareness Impairments Impacting Function (Mobility)balance; pain ActivityPt completed functional household distance with SBA for safety (pt declined use of device) ADL: BADL Assessment/Interventionlower body dressing; grooming; toileting Miller Level (Lower Body Dressing)pants/bottoms; moderate assist (50% patient effort) Position (Lower Body Dressing)edge-of-bed sitting Miller Level (Grooming)supervision Position (Grooming)standing Comment (Grooming)Standing oral care at sink Miller Level (Toileting)supervision Position (Toileting)standing Motor: Sitting, Static (Balance)good balance Sitting, Dynamic (Balance)good balance Dje-fa-Ekyxf (Balance)fair balance Standing, Static (Balance)fair balance Standing, Dynamic (Balance)fair balance Systems Impairment Contributing to Balance Disturbance (Balance) musculoskeletal Identified Impairments Contributing to Balance Disturbance (Balance)pain Sensory: Pre-Treatment Pain Rating7/10 Post-Treatment Pain Rating5/10 Pain Locationlumbar spine; incisional Comment, Pre/Post Treatment PainPt reports pain improved with increased activity Pain LimitationEducated patient on positioning to reduce pain; Educated patient on rest/activity routine to address increase in pain; Adjusted/adapted ADLS/IADLs to reduce pain with these activities; Patient trained for proper mobility/transfer techniques to decrease pain Sensory General Assessmentno sensation deficits identified; pt. denies n/t Impression: Criteria for Skilled Therapeutic Interventions Met (OT Eval)yes; treatment indicated Patient/Family Goals Statement (OT Eval)To go home Rehab Potential (OT Eval)good, to achieve stated therapy goals Therapy Frequency (OT Eval)2 times/wk Predicted Duration of Therapy Intervention7 days Functional Limitations in Following Categoriesself-care; mobility/gait Planned Therapy Interventions (OT Eval)balance training; ADL retraining; transfer training Outcomes Tools: Putting on and taking off regular lower body clothinga lot Bathing (including washing, rinsing, drying)a lot Toileting, which includes using toilet, bedpan or urinala little Putting on and taking off regular upper body clothinga little Taking care of personal grooming such as brushing teetha little Eating Mealsnone AM-PAC (OT) Total Score17 Short Term Goals: Transfer: Established [id number] Transfer: Transfer Type Kkrtxkp-ht-jugbe/ezaot-pj-juo; (more content not included)... [facility] 09-26-2021 Note Post Operative Note: PreOp Diagnosis: Lumbar stenosis, spondylolisthesis L3-5 Post-Procedure Diagnosis: Lumbar stenosis, spondylolisthesis L3-5 Procedure: ALIF via extreme lateral approach L3/4, L4/5 with cage x 2 PSF with instrumentation L3-5 Surgeon: Dr. Richardson Resident/Fellow/Other Convention Worker: Renny Steinberg Estimated Blood Loss (mL): 150 Specimen: no Complications: none Findings: Lumbar stenosis Patient Returned To/Condition: PACU/stable Additional Details: please see POD0 progress note Attestation: Note Completion: I am a:Resident/Fellow Attending AttestationI was present for the entire procedure Electronic Signatures: Sal Richardson) (Signed 04-Oct-2021 15:17) Authored: Post Operative Note, Note Completion Co-Signer: Post Operative Note, Note Completion Timothy Steinberg (Resident)) (Signed 26-Sep-2021 15:10) Authored: Post Operative Note, Note Completion Last Updated: 04-Oct-2021 15:17 by Sal Richardson) [facility] 09-26-2021 History of Present illness Narrative Jay is a pleasant 62-year-old zvvzy-rzpr-aivdjzum male who presents today with his for follow-up visit regarding cervical and lumbar surgeries.Patient is s/p L3-4, L4-5 XLIF with L3-5 posterior spinal fusion via L3-5 percutaneous pedicle screw placement on 09/26/2021. He is also s/p C5-6, C6-7 ACDF on 06/21/2021. Both surgeries were performed by Dr. Richardson.In regards to his low back, he is still experiencing some mild numbness/tingling in his left lower extremity but states that this is markedly improved from his preoperative state. His right lower extremity is now symptom-free. He is experiencing some mild incisional back pain.He is also experiencing mild neck pain in a trapezial distribution. He endorses numbness/tingling in his third and fourth digits bilaterally but states that this is markedly improved from before his cervical surgery.He does endorse some difficulty sleeping secondary to his pain and the numbness/tingling in his third and fourth digits. He denies bowel/bladder incontinence or saddle anesthesia. Denies dropping items from his hands or difficulty with fine motor skills. Denies issues with balance/gait/coordination or dragging/tripping over his feet. He does state that he will occasionally feel weak in his right leg but that this is intermittent, denies any falls. He is walking distances without issue.He continues to do his physical therapy stretches and exercises at home twice daily. He is no longer taking tizanidine and is using Tylenol as needed.ROS: All other systems have been reviewed and are negative except as previously noted in history of present illness.On exam, his cervical and lumbar incisions are well-healed without drainage or signs of infection. He walks with a normal gait in an upright position without assistive device. He has 5/5 strength in all 4 extremities. He is neurologically intact, sensation to light touch intact and equal bilaterally. He has a positive left-sided cubital tunnel Tinel's, negative left-sided carpal Tinel's and Phalen's. Positive right-sided carpal tunnel Tinel's and Phalen's.XR: Images of cervical and lumbar spine reviewed and discussed with patient today and reveal instrumentation and graft in appropriate position.Moving forward, I reassured the patient that I feel he is doing very well following his cervical and lumbar procedures. We discussed that some degree of neck and low back discomfort following the surgeries is not uncommon and that he should continue to do the stretches and exercises that he has been prescribed by physical therapy to help minimize this. I encouraged patient to resume taking tizanidine as this did provide good relief of these pains in the past. I also instructed the patient to use OTC lidocaine patches and prescribed 1% diclofenac gel to see if this provides any significant relief of his neck and low back pains.We discussed that it is not uncommon that his left lower extremity continues to be more bothersome as we performed a left-sided approach for his XLIF. I also reassured the patient that numbness is typically the last symptom to resolve and that we have up until 2 years postoperatively for this to totally resolve.He does have signs of peripheral nerve compression, right carpal tunnel and left cubital tunnel. I did offer the patient a work-up for this, but he declined at this time and states that he does not feel it is bothersome enough to warrant work-up and treatment.The patient will follow up with our office in September next year. I did encourage him to call our office in the meantime with any new or worsening symptoms.The patient was agreeable with the above plan and was appreciative of the care provided today.This note was dictated using speech recognition software and was not corrected for spelling or grammatical errors. [id number] 5FL DO Work Phone: 09-26-2021 Note History of Present I llness: History Present Illness: Reason for surgery: lumbar stenosis HPI: pt presents for elective surgery Allergies: Allergies: penicillin: Rash Home Medication Review: Home Medications Reviewed: yes Impression/Procedure: Impression and Planned Procedure: sx persist ERAS (Enhanced Recovery After Surgery): ERAS Patient: no Physical Exam by System: Constitutional: Alert, cooperative Eyes: PERRLA, nonicteric ENMT: MMM Head/Neck: Neck supple Respiratory/Thorax: Breathing comfortably on RA, conversive Cardiovascular: RRR on peripheral palpation Neurological: AOx3 Psychological: Appropriate mood Skin: No rashes or lesions Consent: COVID-19 Consent: COVID-19 Risk ConsentSurgeon has reviewed meadows risks related to the risk of laquita COVID-19 and if they contract COVID-19 what the risks are. Attestation: Note Completion: I am a: Resident/Fellow Attending AttestationI saw and evaluated the patient. I personally obtained the meadows and critical portions of the history and physical exam or was physically present for meadows and critical portions performed by the resident/fellow. I reviewed the resident/fellows documentation and discussed the patient with the resident/fellow. I agree with the resident/fellows medical decision making as documented in the note. I personally evaluated the patient [id number] Electronic Signatures: Sal Richardson) (Signed 29-Sep-2021 11:39) Authored: Note Completion Co-Signer: History of Present Illness, Allergies, Home Medication Review, Impression/Procedure, ERAS, Physical Exam, Consent, Note Completion Timothy Steinberg (Resident)) (Signed 26-Sep-2021 05:59) Authored: History of Present Illness, Allergies, Home Medication Review, Impression/Procedure, ERAS, Physical Exam, Consent, Note Completion Last Updated: 29-Sep-2021 11:39 by Sal Richardson) [facility] 08-25-2021 Reason for referral (narrative) Reason for Referral: XLIF L3/4, 4/5;2. Navigated percutaneous PSIF L3-5 [facility] 06-21-2021 Note PROCEDURE DETAILS Preoperative Diagnosis: cervical stenosis, HNP with myelopathy C5-7 Postoperative Diagnosis: cervical stenosis, HNP with myelopathy C5-7 Surgeon: Dr. Richardson Resident/Fellow/Other Convention Worker: Skip/ Katalina Procedure: anterior cervical discectomy/ decompression, partial corpectomies C6/7 ASF with cage, plate instrumentation C6/7 ACDF C5/6 with cage, plate instrumentation Anesthesia: GETA Estimated Blood Loss: 15cc Findings: cervical spondylosis with/ myelopathy Specimens(s) Collected: no, Complications: none Drains and/or Catheters: 1 CATHIE Patient Returned To/Condition: PACU/ stable Dictated By: Dr. Richardson Attestation: Note Completion: I am a:Resident/Fellow Attending AttestationI was present for the entire procedure Electronic Signatures: Sal Richardson) (Signed 27-Jun-2021 14:14) Authored: Post-Operative Note, Chart Review, Note Completion Co-Signer: Post-Operative Note, Chart Review, Note Completion Ad Valdivia (Resident)) (Signed 21-Jun-2021 11:55) Authored: Post-Operative Note, Chart Review, Note Completion Last Updated: 27-Jun-2021 14:14 by Sal Richardson) [facility] 06-21-2021 Note History & Physical R eviewed: I have reviewed the History and Physical dated: 02-Jun-2021 History and Physical reviewed and relevant findings noted. Patient examined to review pertinent physical findings.: No significant changes Home Medications Reviewed: no changes noted Allergies Reviewed: no changes noted ERAS (Enhanced Recovery After Surgery): ERAS Patient: no Consent: COVID-19 Consent: COVID-19 Risk ConsentSurgeon has reviewed meadows risks related to the risk of laquita COVID-19 and if they contract COVID-19 what the risks are. Attestation: Note Completion: I am a: Resident/Fellow Attending AttestationI saw and evaluated the patient. I personally obtained the meadows and critical portions of the history and physical exam or was physically present for meadows and critical portions performed by the resident/fellow. I reviewed the resident/fellows documentation and discussed the patient with the resident/fellow. I agree with the resident/fellows medical decision making as documented in the note. I personally evaluated the patient [id number] Electronic Signatures: Sal Richardson () (Signed 27-Jun-2021 13:45) Authored: Note Completion Co-Signer: History & Physical Reviewed, ERAS, Consent, Note Completion Cheikh August (Resident)) (Signed 21-Jun-2021 06:23) Authored: History & Physical Reviewed, ERAS, Consent, Note Completion Last Updated: 27-Jun-2021 13:45 by Sal Richardson) [facility] 12-22-2020 History of Present illness Narrative Jay is a 60-year-old male that presents today with his to be evaluated for his lumbar pain, left hip pain and left lower extremity radiculopathy.He informed me that the symptoms have been present for quite some time but the most recent exacerbation started at the beginning of December. He denies any injuries or falls. He recently underwent a right knee replacement and when he was not getting better from terms of ambulating and developing increasing back pain his orthopedic doctor then went to look up and work-up his hips which then came to working up his lumbar spine.The patient today is dealing with low back pain that is beltline in nature with symptoms that are radiating into his left hip and gluteal region and then continuing to radiate in a posterior lateral distribution down his left lower extremity. He does report having left groin pain. He also is needing to use a walker periodically due to weakness in that left leg. The patient's right lower extremity is primarily asymptomatic, occasionally he will get some radiculopathy but nowhere near as constant or severe as the left. He has full control of his bowel and bladder and he is not dragging over his feet and has not had any recent falls or injuries.From a treatment standpoint, the patient did physical therapy specifically for his lumbar spine and did not have any improvement. He did take 2 rounds of prednisone and is also on Celebrex again with very mild improvement.Family, social, and medical histories are obtained and reviewed.-Patient has hypertension managed with medication. He also has cancer history, melanoma which was found on his back through a skin biopsy. 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 All other systems are non-contributory except as defined in history of present illness.Const: Well-appearing, well-nourished [male] in no distress.Eyes: Normal appearing sclera and conjunctiva, no jaundice, pupils normal in appearance.Resp: breathing comfortably, normal respiratory rate.CV: No upper or lower extremity edema.Musculoskeletal: [Normal gait]. [Able to heel/toe walk without difficulty.] Lumbar ROM is [supple]. Strength exam of the lower extremities reveals 5/5 strength in all major muscle groups]. [Negative] straight leg raise [bilaterally].Neuro: Sensation is intact and equal bilaterally. Deep tendon reflexes are [normal and symmetric]. [No clonus].Skin: Intact without any lesions, normal turgor.Psych: Alert and oriented x3, normal mood and affect.X-rays of his lumbar spine were obtained today. Results images reviewed with patient. These do reveal degenerative changes throughout his lumbar spine as well as varying degrees of spondylolisthesis is. He also shows a slight leg length discrepancy, his left leg is slightly higher and this is revealed on the AP view of his pelvis.Moving forward, since the patient is not improving with conservative treatment neck step is to order an MRI of his lumbar spine. Once we get these results he will follow-up with Dr. Richardson.This note was dictated using speech recognition software and was not corrected for spelling or grammatical errors. [id number] Work Phone: 10-31-2020 History of Present illness Narrative 60 yr old male with back pain. 5/10 [facility] Work Phone: 10-31-2020 History of Present illness Narrative 60 yr old male with back pain. 10/31Mr. Carr is a 60-year-old gentleman complaining of back pain of 3 months duration. The patient says that the pain started after having a total knee replacement in November 2020. Pain is in the lower back area radiates to the lower extremities on the anterior aspect bilaterally all the way down to the dorsum of the foot. Patient describes his pain as a sharp shooting in nature and is associated with numbness mainly along the anterior aspect of the thigh. Patient reports that his pain is worse on the left side compared to the right side however there is no history of weakness or instability. Patient says that this pain has been increasing in frequency and intensity over the last 3 months. Pain is increases with standing and walking. Patient notices that he is unable to stand or walk for more than 30 minutes. Patient feels that the pain is relieved upon sitting and sometimes hunching forward. There is no history of bowel or bladder incontinence. There is no history of any fevers or chills or any history of neoplasms. MRI of the lumbar spine showed an L3-L4 moderate spinal canal stenosis with foraminal narrowing more on the left side. 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 Patient is currently not taking any medications and he was not involved in any physical therapy. Patient has not received any interventions for his back pain.Past medical history significant for multiple foot surgeries and total knee replacement. [facility] Work Phone: Evaluation + Plan note Future Appointments Appointment Date:01/30/2022 09:15:00 AM Scheduled Provider:Shun MACHADO MD Location:[facility] Appointment Type:URO Office Visit Appointment Date:07/31/2022 02:00:00 PM Scheduled Provider:Arely LOGAN MD Location:[facility] Appointment Type:[place] [id number] General Surgery [place] Evaluation + Plan note Future Appointments Appointment Date:07/31/2022 02:00:00 PM Scheduled Provider:Arely LOGAN MD Location: [place] Appointment Type:[facility] [address] [facility] Evaluation + Plan note Future Appointments Appointment Date:10/16/2022 02:15:00 PM Scheduled Provider:Shun MACHADO MD Location:[facility] Appointment Type:URO Office Visit Future Scheduled TestsXR Abdomen 1 View 02/19/22 General Surgery [place] Evaluation + Plan note Future Appointments Appointment Date:02/22/2023 10:45:00 AM Scheduled Provider:Shun MACHADO MD Location:[facility] Appointment Type:URO Office Visit Future Scheduled TestsXR Abdomen 1 View 02/19/22 [facility] Evaluation + Plan note Future Appointments Appointment Date:04/13/2024 09:15:00 AM Scheduled Provider:Shun MACHADO MD Location:[facility] Appointment Type:URO Office Visit [facility] Evaluation note Neurological: alert and oriented [id number]: Spine Exam:Dressings CDINo bruising, swelling, or erythemaL1: SILT L2: SILT Hip flexors 5/5 Left; 5/5 RightL3: SILT Knee extension 5/5 Left; 5/5 RightL4: SILT Tib Ant. (Dorsiflexion) 5/5 Left; 5/5 RightL5: SILT EHL 5/5 Left; 5/5 RightS1: SILT Planter flexion 5/5 Left; 5/5 RightClonus: AbsentCardiovascular: RRRRespiratory/Thorax: Breathing comfortably on the RAHead/Neck: AtraumaticPsychological: Appropriate moodENMT: MMMEyes: PERRL, EOMI, clear scleraSkin: No skin breaksConstitutional: Patient well appearing, no acute distress resting in bed [facility] Evaluation note No assessment information availa [facility] Work Phone: History of Present illness Narrative Jay is a very pleasant 61-year-old male who presents today with his and daughter for lumbar MITCHELL.He is s/p L3-4 and L4-5 XLIF with interbody cage placement x2, L3-5 posterior 5 spinal fusion via L3-L5 percutaneous pedicle screw placement.Today, the patient tells me that he is doing exceptionally well. He reports very mild L>R buttock numbness/tingling that is present after standing for greater than 45 minutes - 1 hour. He is also having some very mild posterior incisional pain. His pain is managed adequately with tizanidine and OTC Tylenol. He is now able to walk over 2 miles which is markedly improved from his preoperative state. He reports normal bowel and bladder function.On exam, his left flank and posterior incisions are well-healed without drainage or signs of infection. 5/5 strength throughout BLE. Normal sensation. Neurologically intact. Ambulates in an upright position without assistive device.XR: Images of lumbar spine completed today personally reviewed and discussed with patient today and reveal instrumentation in appropriate position with good healing. No acute fracture or instability.He is exceptionally pleased with the results of his lumbar surgery. I advised patient that such rapid resolution of symptoms is very reassuring, and his numbness in his bilateral buttock should continue to improve. He was given referral for physical therapy for general lumbar and lower extremity strengthening as well as to relearn different stretches taught to help reduce lumbar tightness. I advised the patient to continue use of Tylenol and tizanidine as needed for his incisional pain.Restrictions and limitations were reviewed.He will follow-up with me in 2 months for repeat x-rays and reevaluation.I encouraged the patient to call our office with any concerns, new or worsening symptoms, or if he should need medication refills.The patient, his , and his daughter were agreeable with the above plan were appreciative the care provided today.This note was dictated using speech recognition software and was not corrected for spelling or grammatical errors. [id number] 5FL DO Work Phone: Hospital course Narrative No data available for this section [facility] [place] [facility] Discharge instructions Activity:activity as tolerated and PROGRESSIVE WALKING AT LEAST 2X/DAY. May not shower NO SHOWERING UNTIL ANTONIO REMOVED IN 3WKS. May not return to school/work until follow-up visit with Dr. Richardson Instructions:. May not drive while taking narcotics. No pushing, pulling, or lifting objects greater than 10 pounds. Weight-bearing Instructions: full weight bearing. Other activity instructions: NO EXCESSIVE BENDING/TWISTING, NO HEAVY HOUSE/YARD WORK.Wound Care 1:Wound Site: Lateral/ FlankWound Type: surgical incisionChange Dressing: daily, UNTIL NO LONGER DRAINING, THEN YOU CAN LEAVE THE DRSG. OFFCover With: abdominal dressingTape With: paper tapeInstructions: no lotions, creams, or tub soaksOther Instructions: PLEASE HAVE ANTONIO REMOVED IN 3 WKS. AT [facility] [address] [facility] FLOOR ON 10/18/2021 AT 0930 WITH [facility] SANTIAGO.REHAB FACILITIES OR HOME CARE MAY REMOVE ANTONIO OR SUTURES.Wound Care 2:Wound Site: BACK (Lumbar Spine)Wound Type: surgical incisionChange Dressing: dailyCleanse With: soap and waterCover With: abdominal dressingTape With: paper tapeInstructions: no lotions, creams, or tub soaksOther Instructions: PLEASE HAVE ANTONIO REMOVED IN 3 WKS. AT [facility] [address] [facility]TH FLOOR ON 10/18/2021 AT 0930 WITH [place] SANTIAGO.REHAB FACILITIES OR HOME CARE MAY REMOVE ANTONIO OR SUTURES.Additional Orders:Additional Instructions: MAY USE HEAT OR ICE TO YOUR BACK AND OR INCISIONS NEEDED FOR COMFORT NO NSAIDS (ADVIL, IBUPROFEN, ALEVE... ETC.) FOR 10-12 WEEKS, THEY HAVE A BAD EFFECT ON HEALING OF FUSION.Call Provider If:Breathing faster than normal. Temperature is greater than 102 degrees. Chills. Urinating less than 4 times per day. Acting very sleepy and difficult to awaken. Vomiting (throwing up) and not able to eat or drink for 12 hours. 3 or more loose, watery bowel movements in 24 hours (diarrhea). Any new concerning symptoms. ANY CONCERNS OVER APPEARANCE OF INCISION PLEASE CALL IN ADVANCE WHEN RUNNING LOW ON PAIN MEDS. A PRESCRIPTION EITHER WILL NEED TO BE ELECTRONICALLY SENT OR PICKED UP IN ONE OF THE OFFICES.Follow Up Appointment 1:Physician/Dept/Service: Dr. Sal Richardson/ Orthopaedic Surgery/ SpineReason for Referral: Postoperative Follow-Up AppointmentCall to Schedule in: 6 weeks, PLEASE CALL [phone] TO SCHEDULE YOUR APPOINTMENT FOR 5-6 WEEKS FOLLOWING YOUR SURGERY.Location: [facility] [address]TH FLOOR OR [address]/ [facility] [address], [phone] Number: Office: (September,./MAYKEL) - [phone]: Please Call Emmie Gallagher RN at [phone] For Any Post-Op Questions [facility] Discharge instructions No data available for this section General Surgery [place] Progress note No data available for this section General Surgery [facility] Summary Purpose Family History No Family History Records Found Relationship Condition Age at Onset Recorded Date/T mariana Not Specified Hypertension Unknown father Malignant neoplasm Unknown Advance Directives No Advanced Directives Records Found Advance Directive Response Recorded Date/ Time Advance Directives No December 05 7:40am Advance Directive Response Recorded Date/ Time Advance Directives No December 05 6:40am Chief Complaint NPV* 60-year-old man presents today with low back pain with radiation into both lower extremities. Left is worse than right, but he has bilateral symptoms. In addition of pain, he has weakness and numbness in his legs with difficulty walking and standing. He can no longer leave the active lifestyle thathe used to enjoy. * Overall, his quality of life is really not acceptable. The pain and weakness have become debilitating. * His symptoms started after a right total knee replacement that was performed in November. Of note, he has also had 2 reconstructive surgeries to his left foot and one on the right foot. He has had partial fusions performed. * In any event, after the knee replacement, he started having back pain with symptoms into both lowerextremities that progressively got worse. * He has been treated with physical therapy and oral medications without improvement. Overall, he feels that he is getting worse with time. * He denies fevers chills or sweats, red flags, changes in bowel or bladder. He does not smoke. He does not take blood thinners. He has no history of prior abdominal surgery. * On exam, it is noted that the patient does have mild weakness and numbness in an L4 and L5 type distribution. Nerve tension signs are positive, lower extremity reflexes are absent. Upper motor neuronsigns are negative there is no ataxia. He walks with an antalgic gait with a positive shopping cartsign. Neupro vascular exam is within normal limits, Homans' sign is negative. * MRI from 03/08/2021 shows evidence of spinal stenosis at L3-4 and L4-5, central at the L3-4 level where there is moderate central canal stenosis, and primarily foraminal at L4-5. At L4-5 there are also fluid-filled facets. * X-rays taken on 02/09/2021 show degenerative spondylolisthesis at L4-5 measuring 5 mm, and retrolisthesis at L3-4 measuring 6.5 mm. * I had a long talk with the patient. There is multilevel stenosis and instability from L3 L5 that iscausing his ongoing symptoms. * Understandably he would like to avoid surgery if at all possible. He has been treated with physicaltherapy and oral medications without improvement. He would like to try epidural injections or at least consider as a next up. I am thus referring him to pain management for lumbar epidural injectionsx3, 1 every other week for up to 3. * We will do a virtual visit in 4 weeks. He lives far away, in the [facility]. If he gets better with the injections, perhaps we can watch [id number] and this is obviously what we are hoping for. Jada get up to 3 injections every 9 to 12 months. * If he fails to improve despite the injections, he states that his quality of life is unacceptable and he would really want to proceed with surgery * He did asked me some questions about what surgery would entail. Given the situation, I think we could get good indirect decompression, and he has instability so would have to fuse anyway. Therefore, my plan would be try to get by with a less invasive approach. I would consider performing an anterior lumbar interbody fusion through extreme lateral approach at L3-4 and L4-5 followed by posterior fusion from L3-L5 through a percutaneous type approach. * Success rate of this type of surgery is generally in the 80% range for improvement of neurogenic symptoms. Therefore, surgeries not a guarantee and there is even a chance that the patient be worse despite an operation. We did discuss the details of this type of surgery, all potential risks and benefits, as well as the fact the surgeries not a guarantee and there is even a chance that the patient could be worse. * Risks of surgery were completely discussed with the patient in great detail. This includes injury to spinal cord, nerve roots, cauda equina, conus medullaris, paralysis, weakness or numbness in legs that can be permanent, loss of bowel and/or bladder control, injury to great vessels, bowel, other vi sceral structures, injury to psoas, dural tear, hematoma, bleeding, meningocele, meningitis, arachnoiditis, abscess, infection, bleeding, pain, scarring, need for repeat surgery, failure to achieve the desired result (unsuccessful results), dural tear or dural defect requiring repair, pseudomeningocele, neurologic injury, vascular injury, epidural hematoma, epidural abscess, blood clots, stroke, heart attack. * Risks of Fusion: Pseudoarthrosis; hardware failure; nonunion, a damage to neurologic, vascular, or visceral structures from instrumentation; painful hardware; epidural hematoma; epidural abscess. * For now, we will try the epidural injections. I took care of the referral to pain management * Virtual visit with me in about 4 weeks we can see how he is doing with the epidural injections and how she is responding. He appreciates all the time I spent with him today as well as my conservativeapproach. He does make it very clear that if the injections fail that he would want surgery as his quality of life as it is is really not acceptable. c/o back pain* 60-year-old man presents today with low back pain with radiation into both lower extremities. Left is worse than right, but he has bilateral symptoms. In addition of pain, he has weakness and numbness in his legs with difficulty walking and standing. He can no longer leave the active lifestyle thathe used to enjoy. * Overall, his quality of life is really not acceptable. The pain and weakness have become debilitating. * His symptoms started after a right total knee replacement that was performed in November. Of note, he has also had 2 reconstructive surgeries to his left foot and one on the right foot. He has had partial fusions performed. * In any event, after the knee replacement, he started having back pain with symptoms into both lowerextremities that progressively got worse. * He has been treated with physical therapy and oral medications without improvement. Overall, he feels that he is getting worse with time. * He denies fevers chills or sweats, red flags, changes in bowel or bladder. He does not smoke. He does not take blood thinners. He has no history of prior abdominal surgery. * On exam, it is noted that the patient does have mild weakness and numbness in an L4 and L5 type distribution. Nerve tension signs are positive, lower extremity reflexes are absent. Upper motor neuronsigns are negative there is no ataxia. He walks with an antalgic gait with a positive shopping cartsign. Neupro vascular exam is within normal limits, Homans' sign is negative. * MRI from 03/08/2021 shows evidence of spinal stenosis at L3-4 and L4-5, central at the L3-4 level where there is moderate central canal stenosis, and primarily foraminal at L4-5. At L4-5 there are also fluid-filled facets. * X-rays taken on 02/09/2021 show degenerative spondylolisthesis at L4-5 measuring 5 mm, and retrolisthesis at L3-4 measuring 6.5 mm. * I had a long talk with the patient. There is multilevel stenosis and instability from L3 L5 that iscausing his ongoing symptoms. * Understandably he would like to avoid surgery if at all possible. He has been treated with physicaltherapy and oral medications without improvement. He would like to try epidural injections or at least consider as a next up. I am thus referring him to pain management for lumbar epidural injectionsx3, 1 every other week for up to 3. * We will do a virtual visit in 4 weeks. He lives far away, in the [facility]. If he gets better with the injections, perhaps we can watch [id number] and this is obviously what we are hoping for. Jada get up to 3 injections every 9 to 12 months. * If he fails to improve despite the injections, he states that his quality of life is unacceptable and he would really want to proceed with surgery * He did asked me some questions about what surgery would entail. Given the situation, I think we could get good indirect decompression, and he has instability so would have to fuse anyway. Therefore, my plan would be try to get by with a less invasive approach. I would consider performing an anterior lumbar interbody fusion through extreme lateral approach at L3-4 and L4-5 followed by posterior fusion from L3-L5 through a percutaneous type approach. * Success rate of this type of surgery is generally in the 80% range for improvement of neurogenic symptoms. Therefore, surgeries not a guarantee and there is even a chance that the patient be worse despite an operation. We did discuss the details of this type of surgery, all potential risks and benefits, as well as the fact the surgeries not a guarantee and there is even a chance that the patient could be worse. * Risks of surgery were completely discussed with the patient in great detail. This includes injury to spinal cord, nerve roots, cauda equina, conus medullaris, paralysis, weakness or numbness in legs that can be permanent, loss of bowel and/or bladder control, injury to great vessels, bowel, other vi sceral structures, injury to psoas, dural tear, hematoma, bleeding, meningocele, meningitis, arachnoiditis, abscess, infection, bleeding, pain, scarring, need for repeat surgery, failure to achieve the desired result (unsuccessful results), dural tear or dural defect requiring repair, pseudomeningocele, neurologic injury, vascular injury, epidural hematoma, epidural abscess, blood clots, stroke, heart attack. * Risks of Fusion: Pseudoarthrosis; hardware failure; nonunion, a damage to neurologic, vascular, or visceral structures from instrumentation; painful hardware; epidural hematoma; epidural abscess. * For now, we will try the epidural injections. I took care of the referral to pain management * Virtual visit with me in about 4 weeks we can see how he is doing with the epidural injections and how she is responding. He appreciates all the time I spent with him today as well as my conservativeapproach. He does make it very clear that if the injections fail that he would want surgery as his quality of life as it is is really not acceptable. c/o back pain* The patient returns today. He has ongoing back pain with symptoms down the lower extremities. As noted previously, he has stenosis and spondylolisthesis from L3-L5 with fluid-filled facet joints. * However, he states that he has worsening symptoms in his neck down his arms as well. This too has been present for a couple years, and has been getting progressively worse with time. At this point, the symptoms have gotten to a point where they are not acceptable. He is having trouble with coordination in his hands, and he has neck pain and head pain that runs down his shoulders and into his armsthat keeps him awake at night. * He is dropping objects. Fine motor skills such as tying his shoes or buttoning a shirt or zipping up his pants have become difficult. More gross motor skills such as cutting wood are not as bothersome. However it is the fine motor skills that are really bothering him, and he is worried that he is getting progressively worse with time. * He has a weak numb feeling in his hands. He feels that his balance is also starting to deteriorate in his legs as well. He has the back and leg pain, but a lot of his trouble walking is really a problem with the balance now. * He denies fevers chills or sweats, red flags, changes in bowel or bladder. * He does not smoke. He does not take blood thinners. He has had no previous neck or back surgery. Hehas no history of prior abdominal surgery. * On exam, it is noted that the patient has mild weakness and numbness in a C7 type distribution, andmoderate weakness in a C8 and T1 type distribution. Cervical nerve tension signs are positive, upper motor neuron signs are negative. Upper extremity reflexes are absent. Peripheral nerve compression signs are all negative. He does walk with a bit of an ataxic gait that was not present previously. * MRI cervical spine from 04/12/2021 is available from the [facility] on a CD. This shows evidence of degenerative disc osteophyte complexes at C5-6 and C6-7 causing moderate central canal stenosis at C5-6, severe central canal stenosis at C6-7. Some myelomalacia is noted at the C6-7 level. * I had a long talk with the patient and his . Both his cervical and lumbar symptoms are problematic, but the cervical symptoms running down his upper extremities are his major complaint now. As this is the highest lesion as well, we should really take care of this first. The patient and his wifeare in agreement. * He has been treated with physical therapy without improvement. Medications have not helped. He has a progressive deficit with worsening myelopathy. At this point, he would very much want to proceed with operative management and given the deficits and presence of myelopathy which is worsening I do think that surgical intervention is appropriate especially given the myelomalacia and severe central canal stenosis that is present in the cervical spine. * Surgery would entail an anterior cervical discectomy and decompression at C5-6 and C6-7, likely partial corpectomy with fusion across the C5-C7 levels. I would perform the fusion with cage and plate instrumentation. * success rates of surgery are generally in the 80% range for improvement of neurogenic symptoms. Therefore, surgery is not a guarantee and there is even a chance that the patient could be worse despite an operation. I made this very clear the patient and his and they both understand. * They understand that there is a chance he might not improve with surgery or could even be worse. Atthis point, they are willing to accept that risk for the possibly of improvement. His quality of life is totally unacceptable he is progressively deteriorating. He would at least like the chance of getting better. Therefore, he is willing to accept the risk of potentially not improving or being worse with an operation. * Risks of Fusion: Pseudoarthrosis; hardware failure; nonunion, a damage to neurologic, vascular, or visceral structures from instrumentation; painful hardware; epidural hematoma; epidural abscess. * Risks of Anterior Cervical Surgery: Spinal cord injury; risks to midline structures such as esophagus, trachea, thyroid, or other structures; damage to vertebral artery; stroke; paralysis; quadriparesis; epidural hematoma; epidural abscess; pseudomeningocele; dysphonia; dysphagia; need for feeding t ube after surgery; damage to nerves/ blood vessels/ spinal cord/ visceral structures. * Risks of Cervical Surgery: Spinal cord injury, epidural hematoma, epidural abscess, dural defect, pseudomeningocele, nerve injury or nerve root injury, damage to vertebral artery, possible stroke, damage to vascular structures or visceral structures of the neck. * Appropriate consent was obtained in clinic for surgery today. As per his wishes we will schedule surgery for the next available opening. * The patient returns today. His status post surgery on 06/21/2021. She underwent anterior decompression and fusion at C5-6 and C6-7 with plate and cage instrumentation. * He is doing great. Severe burning pain that would run down his upper extremities has resolved. The weakness numbness and tingling in his arms and hands have resolved. Is able to use his arms and hands without difficulty. The loss of coordination is no longer a problem. Overall he is markedly improved from his preoperative state and extremely pleased with results of surgery. * He is still having some back pain with symptoms into the lower extremities that is significant as well. 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 His cervical myeloradiculopathy is markedly improved after the successful surgery on 06/21/2021. His lumbar symptoms are persistent and bothersome. * Of note, he does not take blood thinners. He does not smoke. He has no history of prior abdominal surgery. * MRI lumbar spine on 03/08/2021 shows evidence of spinal stenosis L3-4 and L4-5. There is unstable retrolisthesis measuring 7 mm at L3-4, as well as a spondylolisthesis at L4-5 which measures 6 mm. * I had a long talk with the patient. His lumbar symptoms still very problematic and as noted previously he has failed physical therapy, oral medications, numerous epidural injections. He strongly wants to consider surgery. * However, he is just 6 weeks out from the cervical spine surgery, and I really want to start physical therapy and make sure that he is doing well before we start to take care another problem. He is inagreement with this. * I am prescribing physical therapy cervical spine and prescribing tizanidine. I would like to see him back in 4 to 5 weeks to make sure that he is recovering well and that therapy is going well beforewe start to plan for his lumbar operation. * It should be noted, that the problems with bowel and bladder that he had before surgery have also resolved since his successful cervical spine operation as well. He no longer has loss of control of his bowel and bladder and he is thrilled about this. * Looking at the MRI from 03/08/2021, it appears that at L3-4 a lateral fusion could be performed. At L4-5, I am not sure that this would be possible, we would possibly have to consider an oblique fusion. Likewise, at L4-5 we could always consider a minimally invasive TLIF as well. * There is evidence of stenosis at both levels. There are fluid-filled facet joints at both levels demonstrating instability. The stenosis is significant but not critically severe. Therefore, I am hoping we can get indirect decompression via distraction and possibly be able to perform the anterior shannon kala via lateral or oblique approach at both levels, followed by either plate fixation or posteriorpercutaneous fixation. * If he were to have an adequate decompression, we could always consider a simple decompression surgery later on as the fusion would be complete at that point. * We could also consider the surgery via posterior approach with an open decompression and fusion. However, this would entail a significant amount more muscle stripping and be a more extensive operation. He is very pleased with how the cervical spine surgery went, and given this I think he may be more amenable to the possibility of an indirect decompression via less invasive approach. After long discussion about this, he definitely would want to consider the anterior type surgery with indirect decompression as opposed to the open posterior type operation. * The plan therefore would be to perform an anterior lumbar interbody fusion via extreme lateral or oblique approach at L3-4 and L4-5. We would provide fixation with either plate instrumentation or percutaneous fixation. The goal would be to get good distraction with indirect decompression as well as stabilization. * Success rates of this type of surgery are generally in the 80% range for improvement of neurogenic symptoms. Because the patient's condition is very chronic and has been present for well over 2 yearsduration, success rates in his case would be 10% less than that typically predicted or more than 70% range. Therefore, surgeries not a guarantee and there is even a chance that the patient could be worse despite an operation. I made this very clear the patient and his family and they understand. * Risks of surgery were completely discussed with the patient in great detail. This includes injury to spinal cord, nerve roots, cauda equina, conus medullaris, paralysis, weakness or numbness in legs that can be permanent, loss of bowel and/or bladder control, injury to great vessels, bowel, other vi sceral structures, injury to psoas, dural tear, hematoma, bleeding, meningocele, meningitis, arachnoiditis, abscess, infection, bleeding, pain, scarring, need for repeat surgery, failure to achieve the desired result (unsuccessful results), dural tear or dural defect requiring repair, pseudomeningocele, neurologic injury, vascular injury, epidural hematoma, epidural abscess, blood clots, stroke, heart attack. * Risks of Fusion: Pseudoarthrosis; hardware failure; nonunion, a damage to neurologic, vascular, or visceral structures from instrumentation; painful hardware; epidural hematoma; epidural abscess. * For now, we will do the physical therapy for the cervical spine to make sure that she is recoveringwell from this. I will consult vascular so that we can consider oblique approach at least at the L4-5 level. * Follow-up with me in 4 to 5 weeks time for evaluation so he can check on his progress and formulatea final surgical plan. * The patient returns today. He is status post cervical spine surgery on 06/21/2021. He underwent anterior cervical decompression and fusion from C5-C7. * From that standpoint he has done great. The severe symptoms in his upper extremities and neck have resolved. The weakness and numbness in his arms and hands are gone. He is delighted with the resultsof surgery. * He has 5/5 strength in the upper extremities, normal sensation, negative nerve tension signs. Woundis well-healed with no dysphonia or dysphagia. Again he and his are absolutely delighted with the results of his cervical spine operation. * However, he still has low back pain with symptoms into the lower extremities. He has associated weakness and numbness in his legs with ongoing difficulty walking and standing. This did improve somewhat with the cervical spine surgery but is still quite significant. * The MRI of his lumbar spine demonstrates evidence of stenosis at L3-4 and L4-5 with an unstable retrolisthesis at the L3-4 and spondylolisthesis at the L4-5 level. Instability is most significant at L3-4. There are fluid-filled facets at L3-4 and L4-5. * He has been treated with physical therapy, oral medications, numerous epidural injections without improvement. His quality of life is not acceptable. The left side bothers him much more than the right. He has great difficulty walking and standing for short distances, and can no longer leave the active lifestyle that he is to enjoy. * He does not smoke. He does not take blood thinners. No history of prior abdominal surgery. The leftside bothers him more than the right. * We had a long discussion about different treatment options. We could consider doing a posterior surgery only, but he is a larger individual, and really wants to get back to fairly heavy labor type activity if possible, so I am a bit reluctant to consider a big open type decompression and fusion. It certainly would be a reasonable thing to do, but he would really favor something that is potentially less invasive. He understands that it may be a necessity at the end of the day. * The other option would be consider an anterior/lateral fusion at L3-4 and/or L4-5. L4-5 is a bit deep-seated, but I think we could get to it laterally. We should definitely be able to get L3-4 laterally. At L4-5, if I cannot get a lateral approach, I may need to consider an oblique approach. Therefore, we might have to make a separate incision more anteriorly if the lateral incision does not giveus adequate access. * The hope would be that we could put interbody cages in, distract the levels and stabilize, and possibly even use plate fixation to stabilize the construct. If we get the cages in but cannot place lateral plates, he understands that we may need to place medical screws posteriorly although we would try to do so percutaneously if possible, if we get good indirect decompression via distraction. * Because L4-5 is deep-seated, I may not be able to approach it laterally. There is also possibility that we might not be able to get access through an oblique exposure either. If this is to be the case, then I would consider going in posteriorly via minimally invasive TLIF approach through the left side since is the symptomatic side. This would allow me to directly decompress on the left side, andalso place pedicle screws to obtain fixation with interbody graft. * The L3-4 level appears to be the worst level by far. After long discussion, we decided that if we can only get L3-4 anteriorly, then we might just do the L3- 4 level and see how he does with cage and plate fixation. We would not burn any bridges if we need to do L4-5 posteriorly later on via minimally invasive posterior approach as noted above. However, if L4-5 is obviously unstable, he understands that I might have to just going posteriorly if necessary to take care of the L4-5 level as well. * Therefore, the plan can change. However, if we can only do L3-4 anteriorly, I would lean towards doing L3-4 alone, and seeing how he does versus necessarily forcing the L4-5 issue. If L4-5 is obviously unstable, he understands I may not have a choice. * The other possibilities are that the anterior longitudinal ligament may disrupt as we are trying todistract. In this case, I would have to place posterior fixation either percutaneously or open. There is a possibility that we cannot get adequate distraction although it looks like we should be ableto across 1 or both interspaces in which case I may need to perform an open decompression and fusion. Therefore, once again, he understands that the plan is a bit fluid, and there is a chance that wemay need to change things based upon what we are able to do via the anterior approach and what we see. * He also understands that if we use anterior plate fixation there is a chance that it may not provide enough fixation long-term and we need to go back and posteriorly to provide additional stabilization. He understands is a chance we get distraction and feel it is adequate but find out at the end ofthe day that it does not relieve neurogenic symptoms we have to perform an open decompression lateron. He is fine with this. He understands that there is a possibility for the need for a staged procedure later on. We are trying to do this minimally invasive, but there is always a chance that is simply not adequate and we need to perform an open procedure. * After long discussion, he wishes to proceed with surgery. Surgery overall has success rates in the 80% range for improvement of neurogenic symptoms, but because the patient's condition is very chronic and has been present for well over 2 years duration, success rates in his case would be 10% less than predicted or more in the 70% range. Therefore, surgery is not a guarantee and there is even a chance that the patient to be worse despite an operation. I made this very clear to the patient as well. * We did discuss the details of surgery, all potential risks and benefits, as well as the fact that the surgery is not a guarantee. He understands that there is a chance he might not improve with surgery or could even be worse. At this point he is willing to accept that risk for the possibility of imp rovement. * Risks of surgery were completely discussed with the patient in great detail. This includes injury to spinal cord, nerve roots, cauda equina, conus medullaris, paralysis, weakness or numbness in legs that can be permanent, loss of bowel and/or bladder control, injury to great vessels, bowel, other vi sceral structures, injury to psoas, dural tear, hematoma, bleeding, meningocele, meningitis, arachnoiditis, abscess, infection, bleeding, pain, scarring, need for repeat surgery, failure to achieve the desired result (unsuccessful results), dural tear or dural defect requiring repair, pseudomeningocele, neurologic injury, vascular injury, epidural hematoma, epidural abscess, blood clots, stroke, heart attack. * Risks of Fusion: Pseudoarthrosis; hardware failure; nonunion, a damage to neurologic, vascular, or visceral structures from instrumentation; painful hardware; epidural hematoma; epidural abscess. * Appropriate consent was obtained for both an anterior and posterior type surgery in clinic today. As per his wishes we will schedule surgery for the next available opening. LUMBAR SURGFUV cervical and lumbar surgery Chief Complaint and Reason for Visit Chief Complaint Kidney Stone Kidney Stone Kidney Stone Kidney Stone Chief Complaint See order Chief Complaint see order Additional Source Comments (unrecognized sect ion and content) No Status Records FoundNo Status Records FoundNo Status Records FoundNo Status Records FoundNo Status Records FoundNo Status Records FoundNo Status Records FoundNo Status Records FoundNo Status Records Found INFORMATION SOURCE (unrecogn ized section and content) DATE CREATED AUTHOR 01/14/2021 [facility] DATE CREATED AUTHOR AUTHOR'S ORGANIZ ATION 03/11/2021 [facility] DATE CREATED AUTHOR AUTHOR'S ORGANIZ ATION 08/06/2021 [facility] DATE CREATED AUTHOR AUTHOR'S ORGANIZ ATION 05/03/2022 [employer] DATE CREATED AUTHOR AUTHOR'S ORGANIZ ATION 05/05/2022 [facility] DATE CREATED AUTHOR AUTHOR'S ORGANIZ ATION 11/30/2022 [facility] DATE CREATED AUTHOR AUTHOR'S ORGANIZ ATION 03/10/2023 [facility] DATE CREATED AUTHOR AUTHOR'S ORGANIZ ATION 03/14/[address] [facility] DATE CREATED AUTHOR AUTHOR'S ORGANIZ ATION 04/10/2023 [facility] <item> Privacy Markings (unrecogniz ed section and content) Section Author: Arthur Patten PROHIBITION ON REDISCLOSURE OF CONFIDENTIAL INFORMATION This notice accompanies a disclosure of information concerning a client made to you with the consent of such client. Care Team (unrecognized sect ion and content) Team Status: Inactive Member Role Status Dates Audrey Armstrong MD Primary Care Provider Active Shun Machado MD Attending Provider Active Team Status: Active Member Role Status Dates Audrey Armstrong MD Primary Care Provider Active Team Status: Inactive Member Role Status Dates Audrey Armstrong MD Primary Care Provider Active Dmitriy De Leon MD Attending Provider Active Team Status: Inactive Member Role Status Gary Armstrong MD Primary Care Provider Active Hudson De Leon MD Attending Provider Active Goals (unrecognized section and content) Goals may be documented in a n alternate section FOR RECORDS PERTAINING TO PATIENTS WHO ARE OR HAVE BEEN ENROLLED IN A CHEMICAL DEPENDENCY/SUBSTANCEABUSE PROGRAM, SOME INFORMATION MAY BE OMITTED. This clinical summary was aggregated from multiple sources. Caution should be exercised in using it in the provision of clinical care. This summary normalizes information from multiple sources, and as a consequence, information in this document may materially change the coding, format and clinical context of patient data. In addition, data may be omitted in some cases. CLINICAL DECISIONS SHOULD BE BASED ON THE PRIMARY CLINICAL RECORDS. [employer] [facility]. provides no warranty or guarantee of the accuracy or completeness of information in this document.
== END 2023-07-03 08:45 | disposition home or self-care (01) ==
LOC: RAD 08:44
PROVIDERS: PCP Family Medicine; Visit Provider Podiatrist Foot & Ankle Surgery
DX: M79.671 Pain in right foot (principal)
CPT/HCPCS: 73630

== ENCOUNTER 2023-07-17 08:42 | Outpatient (OUT) | payer MEDICARE, SELFPAY ==
--- NOTE | 2023-07-17 08:46 | CT_ITS ---
The [address] [address] Patient Name: RG SIMEON MRN: [id number] date: 1960 Sex: M Assigned Patient Location: CT Current Patient Location: CT Accession/Order Number: [id number] Exam Date: 07/17/2023 08:50 Report Date: 07/17/2023 10:01 At the request of: JENI SAEED Procedure: CT ankle RT wo con EXAMINATION: CT ankle RT wo con HISTORY: Nonunion, Painful Hardware Right Foot COMPARISON: 07/03/2023, 12/27/2022 TECHNIQUE: Multi-planar CT images were created without IV contrast. Dose reduction techniques were achieved by using automated exposure control and/or adjustment of mA and/or kV according to patient size and/or use of iterative reconstruction technique. FINDINGS: BONES: Stable exam demonstrating subtalar fusion with 2 cannulated screws and fusion utilizing a strut extending from the first metatarsal. The image [id number] into the talus. There is lucency surrounding the strut, grossly stable. Lucency in the distal tibia from bone graft harvesting. Extensive degenerative changes with joint space narrowing marginal osteophyte formation and subchondral degenerative cystic changes SOFT TISSUES: Mild diffuse soft tissue swelling EFFUSION: None visible. OTHER: Negative. CT/CT ankle RT wo con IMPRESSION: Stable degenerative and postsurgical changes with bone absorption surrounding the strut extending from the metatarsal to the talus and no significant bone formation or bony bridging Electronically authenticated by: BANDAR SAENZ Date: 07/17/2023 10:01
--- OUTSIDE RECORDS SUMMARY | 2023-07-17 08:49 | XMS_ITS | CCD ---
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 SAL RICHARDSON Attending Unavail able Shevikram, Mr. Suarez Attending Unavailabl e Audrey Armstrong Primary Care Unavailable Audrey Armstrong Primary Care Unavailable Renny, Mr. Suarez Attending Unavailabl e Audrey Armstrong Primary Care Unavailable Renny, Mr. Suarez Attending Unavailabl e Self, Referral Referring Unavailable Audrey nguyen Primary Care Unavailable Dr. SAL RICHARDSON Attending Unavail able Shevchik, Mr. Suarez Attending Unavailabl e Audrey Armstrong Primary Care Unavailable Shevchik, Mr. Suarez Referring Unavailabl e Shevchik, Mr. Suarez Referring Unavailabl e Audrey Armstrong Primary Care Unavailable Shevikram, Mr. Suarez Attending Unavailabl e Shevchik, Mr. Suarez Referring Unavailabl e Shevchik, Mr. Suarez Attending Unavailabl e Audrey Armstrong Primary Care Unavailable HoyAudrey Primary Care Unavailable UNKNOWN, UNKNOWN Referring Unavailable [...] DEBRA, Dr. SAL COLEMAN Attending Unavail able HoAudrey nguyen Primary Care Unavailable DEBRA, Dr. SAL COLEMAN Attending Unavail able MD Audrey Armstrong Primary Care Provider [phone] MD Dmitriy De Leon Attending Provider MD Audrey Armstrong Primary Care Provider [phone] MD Dmitriy De Leon Attending Provider EDISONANDER, PETER D Admitting Unavailable ZIEBER, DR LAURY Costello Consulting Unavailable HOY ., DR VENTURA Primary Care Unavailable HIGHLANDER, PETER D Attending Unavailable HIGHLANDER, PETER D Consulting Unavailable HOY ., DR VENTURA Primary Care Unavailable HIGHLANDER, PETER Trena Consulting Unavailable HIGHLANDER, PETER D Admitting Unavailable HIGHLANDER, JENI Albrecht Attending Unavailable NILL ., DR MCGEE Admitting Unavailable NILL ., DR MCGEE Attending Unavailable ZIEBER, DR LAURY Costello Consulting Unavailable HOY ., DR VENTURA Primary Care Unavailable NILL ., DR MCGEE Consulting Unavailable HOY ., DR VENTURA Primary Care Unavailable HIGHLANDER, PETER D Admitting Unavailable HIGHLANDER, PETER D Attending Unavailable ZIEBER, DR LAURY Costello Consulting Unavailable HIGHLANDER, JENI Albrecht Consulting Unavailable HOY ., DR VENTURA Admitting [...] HANCOCK Consulting Unavailable GEMBUS, LAKIA Consulting Unavailable SEAMONCINDY Consulting Unavailable OMAR, WADE Attending Unavailable OMAR, [...] HOY ., DR VENTURA Primary Care Unavailable WEST, DR BANDAR Sheppard Consulting Unavailable HOY ., [...] Primary Care Unavailable HOY ., DR VENTURA Admitting Unavailable LAURY SNYDER Consulting Unavailable HOY ., [...] Unavailable HIGHLANDER, JENI D Consulting Unavailable HIGHLANDER, JENI D Admitting Unavailable HIGHLANDER, JENI Albrecht Attending Unavailable HOY ., DR VENTURA Primary Care Unavailable OMAR, WADE Attending Unavailable DUANE, DR LAURY Costello Consulting Unavailable WADE NELSON Admitting Unavailable ARTURO ., DR VENTURA Primary Care Unavailable WADE NELSON Consulting Unavailable MD Audrey Armstrong Primary Care Provider [phone] MD Hudson De Leon Attending Provider Audrey Armstrong Primary Care Unavailable Hudson De Leon Attending Unavailable Haley, Hudson Admitting Unavailable Audrey Armstrong Primary Care Unavailable Haley, Hudson Attending Unavailable Haley, Hudson Admitting Unavailable Audrey Armstrong Primary Care Unavailable Haley, Hudson Attending Unavailable Haley, Hudson Admitting Unavailable ANTWAN SORIANO Attending Unavailable AUDREY ARMSTRONG Primary Care Unavailable Shun MACHADO Attending Unavailable Shun MACHADO Attending Unavailable Shun MACHADO Attending Unavailable Arely LOGAN Attending Unavailable STEFANIE KNIGHT Attending Unavailable NABILA GREENBERG Referring Unavailable GENE FREY Attending Unavailable NABILA GREENBERG Referring Unavailable Allergies Allergy Classification Reported Allergen(s) Allergy Type Date of Onset Reaction(s) Facility (17 sources) Penicillins; Translations: [Penicillins] Allergy to drug (finding) 7 Rash [facility] Work Phone: (6 sources) Penicillin; Translations: [penicillin] Drug Allergy Eruption of skin (disorder) [facility] [place] (2 sources) oxyCODONE Drug Allergy 1 [facility] Repository (2 sources) Penicillins Drug allergy (disorder) 7 [facility] Repository (1 source) Penicillins Drug allergy (disorder) 2 [facility] Repository Medications Current Medications Medication Drug [...] for 30 day(s), 120 tab(s), Refill(s) 11, [facility], 170, cm, 10/16/22 14:31:00 EDT, Height/Length [...] 1 TAB PO EVERY 4-6 HOURS 10 January 19, 2022 February 15, 2022 7:49am chlorhexidine gluconate 40 mg/ml medicated liquid soap (17 sources) Start: 09-19-2021 Hibiclens 4 % External Liquid USE DIRECTED. Quantity: 1 Refills: 0 Ordered: 19-Sep-2021 Jacquie Alves Start : 19-Sep-2021 Active Start: 06-02-2021 Hibiclens 4 % External Liquid USE DIRECTED as preop shower Quantity: 1 Refills: 0 Ordered: 02-Jun-2021 Azucena Ayala Start : 02-Jun-2021 Active diclofenac sodium 0.01 [...] surgery. Quantity: 1 Refills: 0 Ordered: 02-Jun-2021 Ino Ayalaantha Start : 02-Jun-2021 Active oxybutynin chloride 5 [...] activity., # 30 tab(s), Refills(s) 3, Pharmacy: [facility], 170, cm, 10/16/22 14:31:00 EDT, Height/Length [...] 09-27-2021 Episodic Other aftercare (2 sources) Other emt intermediate (current) drug therapy; Translations: [Other emt intermediate (current) drug therapy] Onset: 06-02-2021 Episodic Other [...] to monitor stability of GB polyp. Normal [facility] RAD - Ultrasound Reporton RAD - Ultrasound Report [id number] F Normal [facility] Ambulatory Visit Summaryon 1 Ambulatory Visit Summary JAY CARR :1960 Visit Date:04/08/2023 Ambulatory Visit Instructions Your Diagnosis Kidney stone BPH (benign prostatic hyperplasia) Hypocitraturia Family history of prostate cancer in father Erectile dysfunction Tests Performed Urnls Dip Stick Auto w/o Microscopy POC 83467 XR Abdomen 1 View -- Results Pending [...] RIVERA, Shun Mirza Where: [facility] Patient Educationon 04-08-20 23 Patient Education Nephrology Dietary Guidelines to [...] ? 8 oz (237 mL) of milk, wvjwnwu-mdtwzdnbkuxv-lhs ry milk, and calcium-fortifiedfruit juice. Calcium-fortified means [...] Spinach (cooked), rhubarb, beets, sweet potatoes, and Tanzanian chard. ? Peanuts. ? Potato chips, british virgin islander fries, and baked potatoes with skin on. ? Nuts and nut products. ? Chocolate. ? If you regularly take a diuretic medicine, make sure to eat at least 1 or 2 servings of fruits or vegetables that are high in potassium each day. These include: ? Avocado. ? Banana. ? Fenton, prune, carrot, or tomato juice. ? Baked [...] fish oil, or vitamin B6. ? Take muyq-ewa-zypfoqj and prescription medicines only as told by your health care provider. These include supplements. What foods should I limit? Limit your in (more content not included)... Normal [facility] Screenson 04-08-2023 Screens [id number] FF Normal [facility] Urology Office/Clinic Noteon 04-08-2023 Urology Office/Clinic Note [...] with voice recognition artificial intelligence software, specifically [employer], [employer] and or [employer]. Substitutions may have occurred due to the inherent limitations of voice recognition and artificial intelligence software. Follow-up With When Contact Information CHRIS RIVERA, Shun Mirza, URL [address] [address]- Additional Instructions: 1 yr w/ KUB Patient Education Dietary Guidelines to Help Prevent Kidney Stones Yolie Castro, personally scribed for Dr. Machado on 04/08/2023 [...] Hypertension Hypocitraturia Kidney (more content not included)... [facility] Comment on above: Result Comment: Elec tronically Signed By: Shun MACHADO MD\.br\Date and Time Signed: 04/08/23 12:06 EDT\.br\Electronically Co-Signed By: Yolie Aly\.br\Date and Time Co-Signed: 04/08/23 11:16 EDT Lab Reportson 04-05-2023 Lab Reports [id number] F [facility] Lab Reportson 04-03-2023 Lab Reports [id number] F [facility] RAD - MISCon 04-03-2023 RAD - MISC [id number] FF [facility] Reminderson 03-27-2023 Reminders - From: Elvira Lee LPN To: [facility] - Clinical; Sent: 10/02/2022 14:02:21 EDT Show up: 2023 07:00:00 EDT Subject: repeat GB US Due Date/Time: 04/03/2023 07:00:00 EDT Reminder/Recall Patient is due to repeat gall bladder US 03/2023. Scheduled 04/02 at [facility]. [facility] CNOVon 03-12-2023 CNOV Office Visit (ORFTMN ) -------- JAY CARR ([id number]) 1960 M Date Time Provider Department 03/12/23 [...] No PCP: Audrey Armstrong MD [address] [facility] [id number] FELLOW / RESIDENT: No fellow or resident assisted in (more content not included)... Normal [facility] Alanine aminotransferase [En zymatic activity/volume] in Serum or PlasmaOrdered By: Hudson De Leon on 02-19-2023 ALT [Catalytic activity/Vol] 24 U/L 7-52 [facility] Albumin [Mass/volume] in Ser um or Plasma by Bromocresol green (BCG) dye binding methoOrdered By: Hudson De Leon on 02-19-2023 Albumin BCG dye [Mass/Vol] 4.1 g/dL 3.5-5.7 [facility] Alkaline phosphatase [Enzyma tic activity/volume] in Serum or PlasmaOrdered By: Hudson De Leon on 02-19-2023 ALP [Catalytic activity/Vol] 90 U/L 34-104 [facility] Aspartate aminotransferase [ Enzymatic activity/volume] in Serum or PlasmaOrdered By: Hudson De Leon on 02-19-2023 AST [Catalytic activity/Vol] 27 U/L 13-39 [facility] Automated erythrocytes count in urine sediment (number/area)Ordered By: Hudson De Leon on 02-19-2023 RBC Auto (Urine sed) [#/Area] 0-1 [HPF] 0-4 [facility] Automated leukocytes count i n urine sediment (number/area)Ordered By: Hudson De Leon on 02-19-2023 WBC Auto (Urine sed) [#/Area] None seen [HPF] 0-4 [facility] Basophils Auto (Bld) [#/Vol] Ordered By: Hudson De Leon on 02-19-2023 Basophils (Bld) [#/Vol] 0.0 10*3/uL 0.0-0.2 [facility] Basophils/100 WBC Auto (Bld) Ordered By: Hudson De Leon on 02-19-2023 Basophils/100 WBC (Bld) 0.7 % . [facility] Bilirubin Test strip Ql (U)O rdered By: Hudson De Leon on 02-19-2023 Bilirubin Ql (U) Negative Negative [facility] Bilirubin.total [Mass/volume ] in Serum or PlasmaOrdered By: Hudsonestella De Leon on 02-19-2023 Bilirubin [Mass/Vol] 0.6 mg/dL 0.3-1.0 [facility] Calcium [Mass/volume] in Ser um or PlasmaOrdered By: Hudsonestella De Leon on 02-19-2023 Calcium [Mass/Vol] 9.0 mg/dL 8.6-10.3 [facility] Carbon dioxide, total [Moles /volume] in Serum or PlasmaOrdered By: Hudsonestella De Leon on 02-19-2023 CO2 [Moles/Vol] 29.6 mmol/L 21.0-31.0 [facility] Chloride [Moles/volume] in S lenny or PlasmaOrdered By: Hudsonestella De Leon on 02-19-2023 Chloride [Moles/Vol] 105 mmol/L 98-107 [facility] Color Auto (U)Ordered By: Jessica ttdwain De Leon on 02-19-2023 Color (U) Yellow Yellow [facility] Complement C3on 02-19-2023 Complement C3 121 mg/dL Normal 82-167 [facility] Comment on above: Result Comment: Perf ormed at: - [facility] [place] [id number] Personal Financial Planner: Derek Toscano PhD, Phone: [phone] Performed By: #### C BC, ESR, ADDONUAPLUS, CMP #### [facility] [address] #### C4, C3, CH50 #### [facility] , Complement C4on 02-19-2023 Complement C4 23 mg/dL Normal 12-38 [facility] Comment on above: Result Comment: PERF ORMED BY: [place] [address] PATHOLOGIST SCREEN PRINTING MACHINE LOADER UNLOADER KRISTIE BAKER M.D. Performed By: #### C BC, ESR, ADDONUAPLUS, CMP #### [facility] [address] [place] [address] [place] #### C4, C3, CH50 #### [facility] , Complement Total (CH50)on Complement Total (CH50) 48 Normal >41 [facility] Comment on above: Result Comment: Age [...] determine out of range values. Performed at: [facility] [address] [id number] Personal Financial Planner: Derek Toscano PhD, Phone: [phone] PERFORMED BY: [place] [address] PATHOLOGIST SCREEN PRINTING MACHINE LOADER UNLOADER KRISTIE BAKER M.D. Performed By: #### C BC, ESR, ADDONUAPLUS, CMP #### [address] #### C4, C3, CH50 #### [facility] , Complete Blood Count Auto Di ffon 02-19-2023 Basophils (Bld) [#/Vol] 0.0 10*3/uL Normal 0.0-0.2 [facility] Comment on above: Performed By: #### C BC, ESR, ADDONUAPLUS, CMP #### [address] #### C4, C3, CH50 #### [facility] , Basophils/100 WBC (Bld) 0.7 % Normal . [facility] Comment on above: Performed By: #### C BC, ESR, ADDONUAPLUS, CMP #### [address] #### C4, C3, CH50 #### [facility] , Eosinophils (Bld) [#/Vol] 0.0 10*3/uL Normal 0.0-0.45 [facility] Comment on above: Performed By: #### C BC, ESR, ADDONUAPLUS, CMP #### [place] [address] [place] #### C4, C3, CH50 #### [facility] , Eosinophils/100 WBC (Bld) 1.0 % Normal . [facility] Comment on above: Performed By: #### C BC, ESR, ADDONUAPLUS, CMP #### [place] [address] [place] #### C4, C3, CH50 #### [facility] , Erythrocyte distribution width (RBC) [Ratio] 13.6 % Normal 12.0-14.8 [facility] Comment on above: Performed By: #### C BC, ESR, ADDONUAPLUS, CMP #### [place] [address] [place] #### C4, C3, CH50 #### [facility] , Hematocrit (Bld) [Volume fraction] 42.3 % Normal 38.8-50.0 [facility] Comment on above: Performed By: #### C BC, ESR, ADDONUAPLUS, CMP #### [place] [address] [place] #### C4, C3, CH50 #### [facility] , Hemoglobin (Bld) [Mass/Vol] 14.3 g/dL Normal 13.0-17.0 [facility] Comment on above: Performed By: #### C BC, ESR, ADDONUAPLUS, CMP #### [place] [address] [place] #### C4, C3, CH50 #### [facility] , Lymphocytes (Bld) [#/Vol] 0.9 10*3/uL Low 1.00-4.8 [facility] Comment on above: Performed By: #### C BC, ESR, ADDONUAPLUS, CMP #### [address] [address] [place] #### C4, C3, CH50 #### [facility] , Lymphocytes/100 WBC (Bld) 18.5 % Normal . [facility] Comment on above: Performed By: #### C BC, ESR, ADDONUAPLUS, CMP #### [address] #### C4, C3, CH50 #### [facility] , MCH (RBC) [Entitic mass] 31.5 pg Normal 27.5-35.2 [facility] Comment on above: Performed By: #### C BC, ESR, ADDONUAPLUS, CMP #### [address] #### C4, C3, CH50 #### [facility] , MCV (RBC) [Entitic vol] 93.0 fL Normal 83.5-101 [facility] Comment on above: Performed By: #### C BC, ESR, ADDONUAPLUS, CMP #### [address] #### C4, C3, CH50 #### [facility] , Mean Corpuscular HGB Conc 33.9 g/dL Normal 32.5-35.6 [facility] Comment on above: Performed By: #### C BC, ESR, ADDONUAPLUS, CMP #### [place] [address] [place] #### C4, C3, CH50 #### [facility] , Monocytes (Bld) [#/Vol] 0.4 10*3/uL Normal 0.0-0.8 [facility] Comment on above: Performed By: #### C BC, ESR, ADDONUAPLUS, CMP #### [place] [address] [place] #### C4, C3, CH50 #### [facility] , Monocytes/100 WBC (Bld) 8.1 % Normal . [facility] Comment on above: Performed By: #### C BC, ESR, ADDONUAPLUS, CMP #### [facility] [address] [place] [address] [place] #### C4, C3, CH50 #### [facility] , Neutrophils (Bld) [#/Vol] 3.4 10*3/uL Normal 1.8-7.7 [facility] Comment on above: Performed By: #### C BC, ESR, ADDONUAPLUS, CMP #### [place] [address] [place] #### C4, C3, CH50 #### [facility] , Neutrophils/100 WBC (Bld) 71.7 % Normal . [facility] Comment on above: Performed By: #### C BC, ESR, ADDONUAPLUS, CMP #### [place] [address] [place] #### C4, C3, CH50 #### [facility] , NRBC% 0.1 /100{WBC} Normal 0-0.5 [facility] Comment on above: Performed By: #### C BC, ESR, ADDONUAPLUS, CMP #### [place] [address] [place] #### C4, C3, CH50 #### [facility] , Platelet mean volume (Bld) [Entitic vol] 9.0 fL Normal 6.6-10.1 [facility] Comment on above: Performed By: #### C BC, ESR, ADDONUAPLUS, CMP #### [facility] [address] [place] [address] [place] #### C4, C3, CH50 #### [facility] , Platelets (Bld) [#/Vol] 198 10*3/uL Normal 150-450 [facility] Comment on above: Performed By: #### C BC, ESR, ADDONUAPLUS, CMP #### [facility] [address] [place] [address] [place] #### C4, C3, CH50 #### [facility] , RBC (Bld) [#/Vol] 4.55 10*6/uL Normal 3.90-5.60 [facility] Comment on above: Performed By: #### C BC, ESR, ADDONUAPLUS, CMP #### [facility] [address] [place] [address] [place] #### C4, C3, CH50 #### [facility] , WBC (Bld) [#/Vol] 4.7 10*3/uL Normal 4.1-10.5 [facility] Comment on above: Performed By: #### C BC, ESR, ADDONUAPLUS, CMP #### [address] #### C4, C3, CH50 #### [facility] , Comprehensive Metabolic Pane tanika 02-19-2023 Albumin [Mass/Vol] 4.1 g/dL Normal 3.5-5.7 [facility] Comment on above: Performed By: #### C BC, ESR, ADDONUAPLUS, CMP #### [address] #### C4, C3, CH50 #### [facility] , Albumin/Globulin [Mass ratio] 1.6 {ratio} Normal [facility] Comment on above: Performed By: #### C BC, ESR, ADDONUAPLUS, CMP #### [place] [address] [place] #### C4, C3, CH50 #### [facility] , ALP [Catalytic activity/Vol] 90 U/L Normal 34-104 [facility] Comment on above: Result Comment: PERF ORMED BY: [place] [address] PATHOLOGIST SCREEN PRINTING MACHINE LOADER UNLOADER KRISTIE BAKER M.D. Performed By: #### C BC, ESR, ADDONUAPLUS, CMP #### [place] [address] [place] #### C4, C3, CH50 #### [facility] , ALT [Catalytic activity/Vol] 24 U/L Normal 7-52 [facility] Comment on above: Performed By: #### C BC, ESR, ADDONUAPLUS, CMP #### [facility] [address] [place] [address] [place] #### C4, C3, CH50 #### [facility] , Anion gap [Moles/Vol] 9.4 mmol/L Normal 6.0-15.0 [facility] Comment on above: Performed By: #### C BC, ESR, ADDONUAPLUS, CMP #### [place] [address] [place] #### C4, C3, CH50 #### [facility] , AST [Catalytic activity/Vol] 27 U/L Normal 13-39 [facility] Comment on above: Performed By: #### C BC, ESR, ADDONUAPLUS, CMP #### [place] [address] [place] #### C4, C3, CH50 #### [facility] , Bilirubin [Mass/Vol] 0.6 mg/dL Normal 0.3-1.0 [facility] Comment on above: Performed By: #### C BC, ESR, ADDONUAPLUS, CMP #### [place] [address] [place] #### C4, C3, CH50 #### [facility] , Calcium [Mass/Vol] 9.0 mg/dL Normal 8.6-10.3 [facility] Comment on above: Performed By: #### C BC, ESR, ADDONUAPLUS, CMP #### [facility] [address] [place] [address] [place] #### C4, C3, CH50 #### [facility] , Chloride [Moles/Vol] 105 mmol/L Normal 98-107 [facility] Comment on above: Performed By: #### C BC, ESR, ADDONUAPLUS, CMP #### [facility] [address] [place] [address] [place] #### C4, C3, CH50 #### [facility] , CO2 [Moles/Vol] 29.6 mmol/L Normal 21.0-31.0 [facility] Comment on above: Performed By: #### C BC, ESR, ADDONUAPLUS, CMP #### [facility] [address] [place] [address] [place] #### C4, C3, CH50 #### [facility] , Creatinine [Mass/Vol] 0.95 mg/dL Normal 0.70-1.30 [facility] Comment on above: Performed By: #### C BC, ESR, ADDONUAPLUS, CMP #### [place] [address] [place] #### C4, C3, CH50 #### [facility] , GFR/1.73 sq M.predicted MDRD (S/P/Bld) [Vol rate/Area] mL/min/{1.73_m2} [facility] Comment on above: Performed By: #### C BC, ESR, ADDONUAPLUS, CMP #### [facility] [address] [place] [address] [place] #### C4, C3, CH50 #### [facility] , Globulin (S) [Mass/Vol] 2.6 g/dL [facility] Comment on above: Performed By: #### C BC, ESR, ADDONUAPLUS, CMP #### [facility] [address] [place] [address] [place] #### C4, C3, CH50 #### [facility] , Glucose [Mass/Vol] 108 mg/dL High 70-100 [facility] Comment on above: Result Comment: [place] Glucose Reference Range is dependent on time and content of last meal. Glucose of more than 200 mg/dL in a nonstressed, ambulatory subject supports the diagnosis of Diabetes Mellitus. ADA recommended reference range Performed By: #### C BC, ESR, ADDONUAPLUS, CMP #### [facility] [address] [place] [address] #### C4, C3, CH50 #### [facility] , Potassium [Moles/Vol] 4.0 mmol/L Normal 3.5-5.1 [facility] Comment on above: Performed By: #### C BC, ESR, ADDONUAPLUS, CMP #### [address] #### C4, C3, CH50 #### [facility] , Protein [Mass/Vol] 6.7 g/dL Normal 6.4-8.9 [facility] Comment on above: Performed By: #### C BC, ESR, ADDONUAPLUS, CMP #### [place] [address] [place] #### C4, C3, CH50 #### [facility] , Sodium [Moles/Vol] 140 mmol/L Normal 136-145 [facility] Comment on above: Performed By: #### C BC, ESR, ADDONUAPLUS, CMP #### [facility] [address] [place] [address] [place] #### C4, C3, CH50 #### [facility] , Urea nitrogen [Mass/Vol] 16 mg/dL Normal 7-25 [facility] Comment on above: Performed By: #### C BC, ESR, ADDONUAPLUS, CMP #### [place] [address] [place] #### C4, C3, CH50 #### [facility] , Creatinine [Mass/volume] in Serum or PlasmaOrdered By: Hudson De Leon on 02-19-2023 Creatinine [Mass/Vol] 0.95 mg/dL 0.70-1.30 [facility] Dipstick and Microscopicon 0 02-19-2023 Appearance (U) Clear Normal Clear [facility] Comment on above: Order Comment: Name Collection Type:: Clean-Voided Midstream Performed By: #### C BC, ESR, ADDONUAPLUS, CMP #### [address] #### C4, C3, CH50 #### [facility] , Bacteria,Urine None Seen Normal None Seen [facility] Comment on above: Order Comment: Name Collection Type:: Clean-Voided Midstream Performed By: #### C BC, ESR, ADDONUAPLUS, CMP #### [address] #### C4, C3, CH50 #### [facility] , Bilirubin,Urine Negative Normal Negative [facility] Comment on above: Order Comment: Name Collection Type:: Clean-Voided Midstream Performed By: #### C BC, ESR, ADDONUAPLUS, CMP #### [address] #### C4, C3, CH50 #### [facility] , Color (U) Yellow Normal Yellow [facility] Comment on above: Order Comment: Name Collection Type:: Clean-Voided Midstream Performed By: #### C BC, ESR, ADDONUAPLUS, CMP #### [place] [address] [place] #### C4, C3, CH50 #### [facility] , Glucose Ql (U) Normal Normal Normal [facility] Comment on above: Order Comment: Name Collection Type:: Clean-Voided Midstream Performed By: #### C BC, ESR, ADDONUAPLUS, CMP #### [place] [address] [place] #### C4, C3, CH50 #### [facility] , Hyaline Casts,Urine None Seen Normal 0-8 [facility] Comment on above: Order Comment: Name Collection Type:: Clean-Voided Midstream Result Comment: PERF ORMED BY: [place] [address] PATHOLOGIST SCREEN PRINTING MACHINE LOADER UNLOADER KRISTIE BAKER M.D. Performed By: #### C BC, ESR, ADDONUAPLUS, CMP #### [address] #### C4, C3, CH50 #### [facility] , Ketones Ql (U) Negative Normal Negative [facility] Comment on above: Order Comment: Name Collection Type:: Clean-Voided Midstream Performed By: #### C BC, ESR, ADDONUAPLUS, CMP #### [address] #### C4, C3, CH50 #### [facility] , Leukocyte esterase Test strip Ql (U) Negative Normal Negative [facility] [facility] Comment on [facility]: Order Comment: Name Collection Type:: Clean-Voided Midstream Performed By: #### C BC, ESR, ADDONUAPLUS, CMP #### [address] #### C4, C3, CH50 #### [facility] , Nitrite,Urine Negative Normal Negative [facility] Comment on above: Order Comment: Name Collection Type:: Clean-Voided Midstream Performed By: #### C BC, ESR, ADDONUAPLUS, CMP #### [place] [address] [place] #### C4, C3, CH50 #### [facility] , Occult Blood,Urine Negative Normal Negative [facility] Comment on above: Order Comment: Name Collection Type:: Clean-Voided Midstream Performed By: #### C BC, ESR, ADDONUAPLUS, CMP #### [address] #### C4, C3, CH50 #### [facility] , pH (U) 5.5 [pH] Normal 5.0-9.0 [facility] Comment on above: Order Comment: Name Collection Type:: Clean-Voided Midstream Performed By: #### C BC, ESR, ADDONUAPLUS, CMP #### [address] #### C4, C3, CH50 #### [facility] , Protein,Urine Negative Normal Negative [facility] Comment on above: Order Comment: Name Collection Type:: Clean-Voided Midstream Performed By: #### C BC, ESR, ADDONUAPLUS, CMP #### [address] #### C4, C3, CH50 #### [facility] , RBC LM.HPF (Urine sed) [#/Area] 0 /[HPF] Normal 0-4 [facility] Comment on above: Order Comment: Name Collection Type:: Clean-Voided Midstream Performed By: #### C BC, ESR, ADDONUAPLUS, CMP #### [address] #### C4, C3, CH50 #### [facility] , Specificy Smiley,Urine 1.018 Normal 1.001-1.03 0 [facility] Comment on above: Order Comment: Name Collection Type:: Clean-Voided Midstream Performed By: #### C BC, ESR, ADDONUAPLUS, CMP #### [address] #### C4, C3, CH50 #### [facility] , Squamous Epithelial Cell,Urine None Seen Normal 0-2 [facility] Comment on above: Order Comment: Name Collection Type:: Clean-Voided Midstream Performed By: #### C BC, ESR, ADDONUAPLUS, CMP #### [address] #### C4, C3, CH50 #### [facility] , Urobilinogen,Urine Normal Normal Normal [facility] Comment on above: Order Comment: Name Collection Type:: Clean-Voided Midstream Performed By: #### C BC, ESR, ADDONUAPLUS, CMP #### [facility] [address] [place] [address] #### C4, C3, CH50 #### [facility] , WBC,Urine None Seen Normal 0-4 [facility] Comment on above: Order Comment: Name Collection Type:: Clean-Voided Midstream Performed By: #### C BC, ESR, ADDONUAPLUS, CMP #### [address] #### C4, C3, CH50 #### [facility] , Eosinophils Auto (Bld) [#/Vo l]Ordered By: Hudson De Leon on 02-19-2023 Eosinophils (Bld) [#/Vol] 0.0 10*3/uL 0.0-0.45 [facility] Eosinophils/100 WBC Auto (Bl d)Ordered By: Hudson De Leon on 02-19-2023 Eosinophils/100 WBC (Bld) 1.0 % . [facility] Erythrocyte Sedimentation Ra natan 02-19-2023 ESR (Bld) [Velocity] 7 mm/h Normal 0-19 [facility] Comment on above: Result Comment: PERF ORMED BY: [place] [address] PATHOLOGIST SCREEN PRINTING MACHINE LOADER UNLOADER KRISTIE BAKER M.D. Performed By: #### C BC, ESR, ADDONUAPLUS, CMP #### [address] #### C4, C3, CH50 #### [facility] , Erythrocyte distribution wid th Auto (RBC) [Ratio]Ordered By: Hudson De Leon on 02-19-2023 Erythrocyte distribution width (RBC) [Ratio] 13.6 % 12.0-14.8 [facility] Erythrocyte sedimentation ra te by Photometric methodOrdered By: Hudson De Leon on 02-19-2023 ESR Photometric method (Bld) [Velocity] 7 mm/hr 0-19 [facility] Globulin Calc (S) [Mass/Vol] Ordered By: Hudson De Leon on 02-19-2023 Globulin (S) [Mass/Vol] 2.6 g/dL [facility] Glucose [Mass/volume] in Ser um or PlasmaOrdered By: Hudson De Leon on 02-19-2023 Glucose [Mass/Vol] 108 mg/dL 70-100 [facility] Comment on above: ADA recommended refe rence rangeRandom Glucose Reference Range is dependent on time and content of last meal. Glucose of more than 200 mg/dL in a nonstressed, ambulatory subject supports the diagnosis of Diabetes Mellitus. Hematocrit Auto (Bld) [Volum e fraction]Ordered By: Hudson De Leon on 02-19-2023 Hematocrit (Bld) [Volume fraction] 42.3 % 38.8-50.0 [facility] Hemoglobin [Mass/volume] in BloodOrdered By: Hudson De Leon on 02-19-2023 Hemoglobin (Bld) [Mass/Vol] 14.3 g/dL 13.0-17.0 [facility] Ketones Auto test strip (U) [Mass/Vol]Ordered By: Hudson De Leon on 02-19-2023 Ketones (U) [Mass/Vol] Negative Negative [facility] - UrinalysisOrder ed By: Hudson De Leon on 02-19-2023 Hyaline casts LM Ql (Urine sed) None seen [LPF] 0-8 [facility] Leukocytes [#/volume] correc leah for nucleated erythrocytes in Blood by Automated counOrdered By: Hudson De Leon on 02-19-2023 WBC corrected for nucl RBC Auto (Bld) [#/Vol] 4.7 10*3/uL 4.1-10.5 [facility] Lymphocytes Auto (Bld) [#/Vo l]Ordered By: Hudson De Leon on 08-29-2023 Lymphocytes (Bld) [#/Vol] 0.9 10*3/uL 1.00-4.8 [facility] Lymphocytes/100 WBC Auto (Bl d)Ordered By: Hudson De Leon on 02-19-2023 Lymphocytes/100 WBC (Bld) 18.5 % . [facility] MCH Auto (RBC) [Entitic mass ]Ordered By: Hudson De Leon on 02-19-2023 MCH (RBC) [Entitic mass] 31.5 pg 27.5-35.2 [facility] MCHC Auto (RBC) [Mass/Vol]Or dered By: Hudson De Leon on 02-19-2023 MCHC (RBC) [Mass/Vol] 33.9 g/dL 32.5-35.6 [facility] MCV Auto (RBC) [Entitic vol] Ordered By: Hudson De Leon on 02-19-2023 MCV (RBC) [Entitic vol] 93.0 fL 83.5-101 [facility] Monocytes Auto (Bld) [#/Vol] Ordered By: Hudson De Leon on 02-19-2023 Monocytes (Bld) [#/Vol] 0.4 10*3/uL 0.0-0.8 [facility] Monocytes/100 WBC Auto (Bld) Ordered By: Hudson De Leon on 02-19-2023 Monocytes/100 WBC (Bld) 8.1 % . [facility] Neutrophils Auto (Bld) [#/Vo l]Ordered By: Hudson De Leon on 02-19-2023 Neutrophils (Bld) [#/Vol] 3.4 10*3/uL 1.8-7.7 [facility] Neutrophils/100 WBC Auto (Bl d)Ordered By: Hudson De Leon on 02-19-2023 Neutrophils/100 WBC (Bld) 71.7 % . [facility] Nitrite Test strip Ql (U)Ord ered By: Hudson De Leon on 02-19-2023 Nitrite Ql (U) Negative Negative [facility] No Panel InformationOrdered By: Hudson De Leon on 02-19-2023 Estimated GFR (CKD-EPI) > 60.0 mL/Min [facility] Creatinine Clearance (Chem N/A [facility] Nucleated erythrocytes [Pres ence] in Blood by Automated countOrdered By: Hudson De Leon on 02-19-2023 Nucleated RBC Auto Ql (Bld) 0.1 /100{WBC} 0-0.5 [facility] Platelet mean volume Auto (B ld) [Entitic vol]Ordered By: Hudson De Leon on 02-19-2023 Platelet mean volume (Bld) [Entitic vol] 9.0 fL 6.6-10.1 [facility] Platelets Auto (Bld) [#/Vol] Ordered By: Hudson De Leon on 02-19-2023 Platelets (Bld) [#/Vol] 198 10*3/uL 150-450 [facility] Potassium [Moles/volume] in Serum or PlasmaOrdered By: Hudson De Leon on 02-19-2023 Potassium [Moles/Vol] 4.0 mmol/L 3.5-5.1 [facility] Protein Auto test strip (U) [Mass/Vol]Ordered By: Hudson De Leon on 02-19-2023 Protein (U) [Mass/Vol] Negative Negative [facility] Protein [Mass/volume] in Ser um or PlasmaOrdered By: Hudson De Leon on 02-19-2023 Protein [Mass/Vol] 6.7 g/dL 6.4-8.9 [facility] RBC Auto (Bld) [#/Vol]Ordere d By: Hudson De Leon on 02-19-2023 RBC (Bld) [#/Vol] 4.55 10*6/uL 3.90-5.60 [facility] Serum or plasma albumin/glob ulin mass ratioOrdered By: Hudson De Leon on 02-19-2023 Albumin/Globulin [Mass ratio] 1.6 {ratio} [facility] Serum or plasma anion gap de terminationOrdered By: Hudson De Leon on 02-19-2023 Anion gap [Moles/Vol] 9.4 mmol/L 6.0-15.0 [facility] Sodium [Moles/volume] in Ser um or PlasmaOrdered By: Hudson De Leon on 02-19-2023 Sodium [Moles/Vol] 140 mmol/L 136-145 [facility] Specific gravity Auto test s trip (U) [Rel density]Ordered By: Hudson De Leon on 02-19-2023 Specific gravity (U) [Rel density] 1.018 1.001-1.03 0 [facility] Squamous epithelial cells de tection in urine sediment by light microscopyOrdered By: Hudson De Leon on 02-19-2023 Epithelial cells.squamous LM Ql (Urine sed) None seen [HPF] 0-2 [facility] Urea nitrogen [Mass/volume] in Serum or PlasmaOrdered By: Hudson De Leon on 02-19-2023 Urea nitrogen [Mass/Vol] 16 mg/dL 7-25 [facility] Urine bacteria detection by automated methodOrdered By: Hudson De Leon on 02-19-2023 Bacteria Auto Ql (U) None seen None Seen [facility] Urine clarity by refractomet ry automatedOrdered By: Hudson De Leon on 02-19-2023 Clarity Refractometry automated (U) Clear Clear [facility] Urine glucose measurement by automated test strip (mass/volume)Ordered By: Hudson De Leon on 02-19-2023 Glucose Auto test strip (U) [Mass/Vol] Normal mg/dL Normal [facility] Urine hemoglobin detection b y automated test stripOrdered By: Hudson De Leon on 02-19-2023 Hemoglobin Auto test strip Ql (U) Negative Negative [facility] Urine leukocyte esterase det ection by automated test stripOrdered By: Hudson De Leon on 02-19-2023 Leukocyte esterase Auto test strip Ql (U) Negative Negative [facility] Urobilinogen Auto test strip (U) [Mass/Vol]Ordered By: Hudson De Leon on 02-19-2023 Urobilinogen (U) [Mass/Vol] Normal mg/dL Normal [facility] WBC Auto (Bld) [#/Vol]Ordere d By: Hudson De Leon on 02-19-2023 WBC (Bld) [#/Vol] 4.7 10*3/uL 4.1-10.5 [facility] pH Auto test strip (U)Ordere d By: Hudson De Leon on 02-19-2023 pH (U) 5.5 [pH] 5.0-9.0 [facility] Screenson 04-26-2023 Screens [id number] Normal [facility] Patient Educationon 10-17-19 Patient Education Nephrology Dietary Guidelines to Help [...] ? 8 oz (237 mL) of milk, whbvjdm-tgvydbchxlhr-fzw ry milk, and calcium-fortifiedfruit juice. Calcium-fortified means [...] Spinach (cooked), rhubarb, beets, sweet potatoes, and Tanzanian chard. ? Peanuts. ? Potato chips, british virgin islander fries, and baked potatoes with skin on. ? Nuts and nut products. ? Chocolate. ? If you regularly take a diuretic medicine, make sure to eat at least 1 or 2 servings of fruits or vegetables that are high in potassium each day. These include: ? Avocado. ? Banana. ? Fenton, prune, carrot, or tomato juice. ? Baked [...] fish oil, or vitamin B6. ? Take rxhh-ixe-saedujz and prescription medicines only as told by your health care provider. These include supplements. What foods should I limit? Limit your in (more content not included)... Normal [facility] Urology Office/Clinic Noteon 10-16-2022 Urology Office/Clinic Note [...] When Contact Information Shun MACHADO MD, URL [address] [facility] [address] [place], [place] [id number]- Additional Instructions: jan 2023 with [facility], blood work Patient Education Dietary Guidelines to Help Prevent Kidney Stones IMary, personally scribed for Dr. Machado on 10/16/2022 15:04:19. . Documentation recorded by the Mary correa a (more content not included)... Normal [facility] Comment on above: Result Comment: Elec tronically Signed By: Shun MACHADO MD\.br\Date and Time Signed: 10/16/22 15:08 EDT\.br\Electronically Co-Signed By: Mary Alicea\.br\Date and Time Co-Signed: 10/16/22 15:04 EDT\.br\Electronically Co-Signed By: Mary Alicea P\.br\Date and Time Co-Signed: 10/16/22 15:06 EDT Alanine aminotransferase [En zymatic activity/volume] in Serum or PlasmaOrdered By: Hudson De Leon on 10-15-2022 ALT [Catalytic activity/Vol] 19 U/L 7-52 [facility] Albumin [Mass/volume] in Ser um or Plasma by Bromocresol green (BCG) dye binding methoOrdered By: Hudson De Leon on 10-15-2022 Albumin BCG dye [Mass/Vol] 4.1 g/dL 3.5-5.7 [facility] Alkaline phosphatase [Enzyma tic activity/volume] in Serum or PlasmaOrdered By: Hudson De Leon on 10-15-2022 ALP [Catalytic activity/Vol] 89 U/L 34-104 [facility] Aspartate aminotransferase [ Enzymatic activity/volume] in Serum or PlasmaOrdered By: Hudson De Leon on 10-15-2022 AST [Catalytic activity/Vol] 19 U/L 13-39 [facility] Automated erythrocytes count in urine sediment (number/area)Ordered By: Hudson De Leon on 10-15-2022 RBC Auto (Urine sed) [#/Area] 1-2 [HPF] 0-4 [facility] Automated leukocytes count i n urine sediment (number/area)Ordered By: Hudson De Leon on 10-15-2022 WBC Auto (Urine sed) [#/Area] None seen [HPF] 0-4 [facility] Basophils Auto (Bld) [#/Vol] Ordered By: Hudson De Leon on 10-15-2022 Basophils (Bld) [#/Vol] 0.0 10*3/uL 0.0-0.2 [facility] Basophils/100 WBC Auto (Bld) Ordered By: Hudson De Leon on 10-15-2022 Basophils/100 WBC (Bld) 0.5 % . [facility] Bilirubin Test strip Ql (U)O rdered By: Hudson De Leon on 10-15-2022 Bilirubin Ql (U) Negative Negative [facility] Bilirubin.total [Mass/volume ] in Serum or PlasmaOrdered By: Hudson De Leon on 10-15-2022 Bilirubin [Mass/Vol] 0.6 mg/dL 0.3-1.0 [facility] Calcium [Mass/volume] in Ser um or PlasmaOrdered By: Hudson De Leon on 10-15-2022 Calcium [Mass/Vol] 8.5 mg/dL 8.6-10.3 [facility] Carbon dioxide, total [Moles /volume] in Serum or PlasmaOrdered By: Hudson De Leon on 10-15-2022 CO2 [Moles/Vol] 27.8 mmol/L 21.0-31.0 [facility] Chloride [Moles/volume] in S lenny or PlasmaOrdered By: Hudson De Leon on 10-15-2022 Chloride [Moles/Vol] 106 mmol/L 98-107 [facility] Color Auto (U)Ordered By: Jessica De Leon on 10-15-2022 Color (U) Yellow Yellow [facility] Complement C3on 10-15-2022 Complement C3 124 mg/dL Normal 82-167 [facility] Comment on above: Result Comment: Perf ormed at: CB - [facility] [place] [id number] Personal Financial Planner: Derek Toscano PhD, Phone: [phone] Performed By: #### C BC, ESR, ADDONUAPLUS, CMP #### [address] #### C4, C3, CH50 #### [facility] , Complement C4on 10-15-2022 Complement C4 23 mg/dL Normal 12-38 [facility] Comment on above: Result Comment: PERF ORMED BY: [place] [address] PATHOLOGIST SCREEN PRINTING MACHINE LOADER UNLOADER KRISTIE BAKER M.D. Performed By: #### C BC, ESR, ADDONUAPLUS, CMP #### [place] [address] [place] #### C4, C3, CH50 #### [facility] , Complement Total (CH50)on Complement Total (CH50) 53 Normal >41 [facility] Comment on above: Result Comment: Age [...] out of range values. Performed at: - [facility] [address] [id number] Personal Financial Planner: Derek Toscano PhD, Phone: [phone] PERFORMED BY: [place] [address] PATHOLOGIST SCREEN PRINTING MACHINE LOADER UNLOADER KRISTIE BAKER M.D. Performed By: #### C BC, ESR, ADDONUAPLUS, CMP #### [address] #### C4, C3, CH50 #### [facility] , Complete Blood Count Auto Di ffon 10-15-2022 Basophils (Bld) [#/Vol] 0.0 10*3/uL Normal 0.0-0.2 [facility] Comment on above: Performed By: #### C 4, C3, CH50 #### [facility] , #### ADDONUAPLUS, CBC, ESR, CMP #### [address] Basophils/100 WBC (Bld) 0.5 % Normal . [facility] Comment on above: Performed By: #### C 4, C3, CH50 #### [facility] , #### ADDONUAPLUS, CBC, ESR, CMP #### [address] Eosinophils (Bld) [#/Vol] 0.1 10*3/uL Normal 0.0-0.45 [facility] Comment on above: Performed By: #### C 4, C3, CH50 #### [facility] , #### ADDONUAPLUS, CBC, ESR, CMP #### [address] Eosinophils/100 WBC (Bld) 1.6 % Normal . [facility] Comment on above: Performed By: #### C 4, C3, CH50 #### [facility] , #### ADDONUAPLUS, CBC, ESR, CMP #### [address] Erythrocyte distribution width (RBC) [Ratio] 14.2 % Normal 12.0-14.8 [facility] Comment on above: Performed By: #### C 4, C3, CH50 #### [facility] , #### ADDONUAPLUS, CBC, ESR, CMP #### [address] Hematocrit (Bld) [Volume fraction] 42.6 % Normal 38.8-50.0 [facility] Comment on above: Performed By: #### C 4, C3, CH50 #### [facility] , #### ADDONUAPLUS, CBC, ESR, CMP #### [address] Hemoglobin (Bld) [Mass/Vol] 14.4 g/dL Normal 13.0-17.0 [facility] Comment on above: Performed By: #### C 4, C3, CH50 #### [facility] , #### ADDONUAPLUS, CBC, ESR, CMP #### [address] Lymphocytes (Bld) [#/Vol] 1.0 10*3/uL Normal 1.00-4.8 [facility] Comment on above: Performed By: #### C 4, C3, CH50 #### [facility] , #### ADDONUAPLUS, CBC, ESR, CMP #### [address] Lymphocytes/100 WBC (Bld) 20.0 % Normal . [facility] Comment on above: Performed By: #### C 4, C3, CH50 #### [facility] , #### ADDONUAPLUS, CBC, ESR, CMP #### [address] MCH (RBC) [Entitic mass] 31.2 pg Normal 27.5-35.2 [facility] Comment on above: Performed By: #### C 4, C3, CH50 #### [facility] , #### ADDONUAPLUS, CBC, ESR, CMP #### [address] MCV (RBC) [Entitic vol] 92.8 fL Normal 83.5-101 [facility] Comment on above: Performed By: #### C 4, C3, CH50 #### [facility] , #### ADDONUAPLUS, CBC, ESR, CMP #### [address] Mean Corpuscular HGB Conc 33.7 g/dL Normal 32.5-35.6 [facility] Comment on above: Performed By: #### C 4, C3, CH50 #### [facility] , #### ADDONUAPLUS, CBC, ESR, CMP #### [address] Monocytes (Bld) [#/Vol] 0.4 10*3/uL Normal 0.0-0.8 [facility] Comment on above: Performed By: #### C 4, C3, CH50 #### [facility] , #### ADDONUAPLUS, CBC, ESR, CMP #### [address] Monocytes/100 WBC (Bld) 8.6 % Normal . [facility] Comment on above: Performed By: #### C 4, C3, CH50 #### [facility] , #### ADDONUAPLUS, CBC, ESR, CMP #### [address] Neutrophils (Bld) [#/Vol] 3.4 10*3/uL Normal 1.8-7.7 [facility] Comment on above: Performed By: #### C 4, C3, CH50 #### [facility] , #### ADDONUAPLUS, CBC, ESR, CMP #### [address] Neutrophils/100 WBC (Bld) 69.3 % Normal . [facility] Comment on above: Performed By: #### C 4, C3, CH50 #### [facility] , #### ADDONUAPLUS, CBC, ESR, CMP #### [address] NRBC% 0.1 /100{WBC} Normal 0-0.5 [facility] Comment on above: Performed By: #### C 4, C3, CH50 #### [facility] , #### ADDONUAPLUS, CBC, ESR, CMP #### [address] Platelet mean volume (Bld) [Entitic vol] 9.1 fL Normal 6.6-10.1 [facility] Comment on above: Performed By: #### C 4, C3, CH50 #### [facility] , #### ADDONUAPLUS, CBC, ESR, CMP #### [facility] [address] [place] [address] [place] Platelets (Bld) [#/Vol] 196 10*3/uL Normal 150-450 [facility] Comment on above: Performed By: #### C 4, C3, CH50 #### [facility] , #### ADDONUAPLUS, CBC, ESR, CMP #### [address] RBC (Bld) [#/Vol] 4.60 10*6/uL Normal 3.90-5.60 [facility] Comment on above: Performed By: #### C 4, C3, CH50 #### [facility] , #### ADDONUAPLUS, CBC, ESR, CMP #### [address] WBC (Bld) [#/Vol] 4.9 10*3/uL Normal 4.1-10.5 [facility] Comment on above: Performed By: #### C 4, C3, CH50 #### [facility] , #### ADDONUAPLUS, CBC, ESR, CMP #### [address] Comprehensive Metabolic Pane tanika 10-15-2022 Albumin [Mass/Vol] 4.1 g/dL Normal 3.5-5.7 [facility] Comment on above: Performed By: #### C BC, ESR, ADDONUAPLUS, CMP #### [address] #### C4, C3, CH50 #### [facility] , Albumin/Globulin [Mass ratio] 1.5 {ratio} Normal [facility] Comment on above: Performed By: #### C BC, ESR, ADDONUAPLUS, CMP #### [address] #### C4, C3, CH50 #### [facility] , ALP [Catalytic activity/Vol] 89 U/L Normal 34-104 [facility] Comment on above: Result Comment: PERF ORMED BY: [place] [address] PATHOLOGIST SCREEN PRINTING MACHINE LOADER UNLOADER KRISTIE BAKER M.D. Performed By: #### C BC, ESR, ADDONUAPLUS, CMP #### [facility] [address] [place] [address] [place] #### C4, C3, CH50 #### [facility] , ALT [Catalytic activity/Vol] 19 U/L Normal 7-52 [facility] Comment on above: Performed By: #### C BC, ESR, ADDONUAPLUS, CMP #### [facility] [address] [place] [address] [place] #### C4, C3, CH50 #### [facility] , Anion gap [Moles/Vol] 9.6 mmol/L Normal 6.0-15.0 [facility] Comment on above: Performed By: #### C BC, ESR, ADDONUAPLUS, CMP #### [address] #### C4, C3, CH50 #### [facility] , AST [Catalytic activity/Vol] 19 U/L Normal 13-39 [facility] Comment on above: Performed By: #### C BC, ESR, ADDONUAPLUS, CMP #### [facility] [address] [place] [address] [place] #### C4, C3, CH50 #### [facility] , Bilirubin [Mass/Vol] 0.6 mg/dL Normal 0.3-1.0 [facility] Comment on above: Performed By: #### C BC, ESR, ADDONUAPLUS, CMP #### [place] [address] [place] #### C4, C3, CH50 #### [facility] , Calcium [Mass/Vol] 8.5 mg/dL Low 8.6-10.3 [facility] Comment on above: Performed By: #### C BC, ESR, ADDONUAPLUS, CMP #### [place] [address] [place] #### C4, C3, CH50 #### [facility] , Chloride [Moles/Vol] 106 mmol/L Normal 98-107 [facility] Comment on above: Performed By: #### C BC, ESR, ADDONUAPLUS, CMP #### [facility] [address] [place] [address] [place] #### C4, C3, CH50 #### [facility] , CO2 [Moles/Vol] 27.8 mmol/L Normal 21.0-31.0 [facility] Comment on above: Performed By: #### C BC, ESR, ADDONUAPLUS, CMP #### [facility] [address] [place] [address] [place] #### C4, C3, CH50 #### [facility] , Creatinine [Mass/Vol] 1.09 mg/dL Normal 0.70-1.30 [facility] Comment on above: Performed By: #### C BC, ESR, ADDONUAPLUS, CMP #### [facility] [address] [place] [address] [place] #### C4, C3, CH50 #### [facility] , GFR/1.73 sq M.predicted MDRD (S/P/Bld) [Vol rate/Area] mL/min/{1.73_m2} [facility] Comment on above: Performed By: #### C BC, ESR, ADDONUAPLUS, CMP #### [facility] [address] [place] [address] [place] #### C4, C3, CH50 #### [facility] , Globulin (S) [Mass/Vol] 2.8 g/dL [facility] Comment on above: Performed By: #### C BC, ESR, ADDONUAPLUS, CMP #### [facility] [address] [place] [address] [place] #### C4, C3, CH50 #### [facility] , Glucose [Mass/Vol] 139 mg/dL High 70-100 [facility] Comment on above: Result Comment: Formerly named [facility] Glucose Reference Range is dependent on time and content of last meal. Glucose of more than 200 mg/dL in a nonstressed, ambulatory subject supports the diagnosis of Diabetes Mellitus. ADA recommended reference range Performed By: #### C BC, ESR, ADDONUAPLUS, CMP #### [place] [address] [place] #### C4, C3, CH50 #### [facility] , Potassium [Moles/Vol] 4.4 mmol/L Normal 3.5-5.1 [facility] Comment on above: Performed By: #### C BC, ESR, ADDONUAPLUS, CMP #### [place] [address] [place] #### C4, C3, CH50 #### [facility] , Protein [Mass/Vol] 6.9 g/dL Normal 6.4-8.9 [facility] Comment on above: Performed By: #### C BC, ESR, ADDONUAPLUS, CMP #### [place] [address] [place] #### C4, C3, CH50 #### [facility] , Sodium [Moles/Vol] 139 mmol/L Normal 136-145 [facility] Comment on above: Performed By: #### C BC, ESR, ADDONUAPLUS, CMP #### [place] [address] [place] #### C4, C3, CH50 #### [facility] , Urea nitrogen [Mass/Vol] 24 mg/dL Normal 7-25 [facility] Comment on above: Performed By: #### C BC, ESR, ADDONUAPLUS, CMP #### [place] [address] [place] #### C4, C3, CH50 #### [facility] , Creatinine [Mass/volume] in Serum or PlasmaOrdered By: Hudson De Leon on 10-15-2022 Creatinine [Mass/Vol] 1.09 mg/dL 0.70-1.30 [facility] Dipstick and Microscopicon 0 10-15-2022 Appearance (U) Clear Normal Clear [facility] Comment on above: Order Comment: Name Collection Type:: Clean-Voided Midstream Performed By: #### C 4, C3, CH50 #### [facility] , #### ADDONUAPLUS, CBC, ESR, CMP #### [facility] [address] [place] [address] Bacteria,Urine None Seen Normal None Seen [facility] Comment on above: Order Comment: Name Collection Type:: Clean-Voided Midstream Performed By: #### C 4, C3, CH50 #### [facility] , #### ADDONUAPLUS, CBC, ESR, CMP #### [facility] [address] [place] [address] Bilirubin,Urine Negative Normal Negative [facility] Comment on above: Order Comment: Name Collection Type:: Clean-Voided Midstream Performed By: #### C 4, C3, CH50 #### [facility] , #### ADDONUAPLUS, CBC, ESR, CMP #### [facility] [address] [place] [address] [place] Color (U) Yellow Normal Yellow [facility] Comment on above: Order Comment: Name Collection Type:: Clean-Voided Midstream Performed By: #### C 4, C3, CH50 #### [facility] , #### ADDONUAPLUS, CBC, ESR, CMP #### [facility] [address] [place] [address] [place] Glucose Ql (U) Normal Normal Normal [facility] Comment on above: Order Comment: Name Collection Type:: Clean-Voided Midstream Performed By: #### C 4, C3, CH50 #### [facility] , #### ADDONUAPLUS, CBC, ESR, CMP #### [facility] [address] [place] [address] [place] Hyaline Casts,Urine None Seen Normal 0-8 [facility] Comment on above: Order Comment: Name Collection Type:: Clean-Voided Midstream Result Comment: PERF ORMED BY: [place] [address] PATHOLOGIST SCREEN PRINTING MACHINE LOADER UNLOADER KRISTIE BAKER M.D. Performed By: #### C 4, C3, CH50 #### [facility] , #### ADDONUAPLUS, CBC, ESR, CMP #### [facility] [address] [place] [address] Ketones Ql (U) Negative Normal Negative [facility] Comment on above: Order Comment: Name Collection Type:: Clean-Voided Midstream Performed By: #### C 4, C3, CH50 #### [facility] , #### ADDONUAPLUS, CBC, ESR, CMP #### [facility] [address] [place] [address] Leukocyte esterase Test strip Ql (U) Negative Normal Negative [facility] Comment on above: Order Comment: Name Collection Type:: Clean-Voided Midstream Performed By: #### C 4, C3, CH50 #### [facility] , #### ADDONUAPLUS, CBC, ESR, CMP #### [facility] [address] [place] [address] Nitrite,Urine Negative Normal Negative [facility] Comment on above: Order Comment: Name Collection Type:: Clean-Voided Midstream Performed By: #### C 4, C3, CH50 #### [facility] , #### ADDONUAPLUS, CBC, ESR, CMP #### [facility] [address] [place] [address] Occult Blood,Urine Negative Normal Negative [facility] Comment on above: Order Comment: Name Collection Type:: Clean-Voided Midstream Performed By: #### C 4, C3, CH50 #### [facility] , #### ADDONUAPLUS, CBC, ESR, CMP #### [address] pH (U) 5.5 [pH] Normal 5.0-9.0 [facility] Comment on above: Order Comment: Name Collection Type:: Clean-Voided Midstream Performed By: #### C 4, C3, CH50 #### [facility] , #### ADDONUAPLUS, CBC, ESR, CMP #### [address] Protein,Urine Negative Normal Negative [facility] Comment on above: Order Comment: Name Collection Type:: Clean-Voided Midstream Performed By: #### C 4, C3, CH50 #### [facility] , #### ADDONUAPLUS, CBC, ESR, CMP #### [address] RBC,Urine 1-2 Normal 0-4 [facility] Comment on above: Order Comment: Name Collection Type:: Clean-Voided Midstream Performed By: #### C 4, C3, CH50 #### [facility] , #### ADDONUAPLUS, CBC, ESR, CMP #### [address] Specificy Smiley,Urine 1.022 Normal 1.001-1.03 0 [facility] Comment on above: Order Comment: Name Collection Type:: Clean-Voided Midstream Performed By: #### C 4, C3, CH50 #### [facility] , #### ADDONUAPLUS, CBC, ESR, CMP #### [address] Squamous Epithelial Cell,Urine None Seen Normal 0-2 [facility] Comment on above: Order Comment: Name Collection Type:: Clean-Voided Midstream Performed By: #### C 4, C3, CH50 #### [facility] , #### ADDONUAPLUS, CBC, ESR, CMP #### [address] Urobilinogen,Urine Normal Normal Normal [facility] Comment on above: Order Comment: Name Collection Type:: Clean-Voided Midstream Performed By: #### C 4, C3, CH50 #### [facility] , #### ADDONUAPLUS, CBC, ESR, CMP #### [address] WBC,Urine None Seen Normal 0-4 [facility] Comment on above: Order Comment: Name Collection Type:: Clean-Voided Midstream Performed By: #### C 4, C3, CH50 #### [facility] , #### ADDONUAPLUS, CBC, ESR, CMP #### [address] Eosinophils Auto (Bld) [#/Vo l]Ordered By: Hudson De Leon on 10-15-2022 Eosinophils (Bld) [#/Vol] 0.1 10*3/uL 0.0-0.45 [facility] Eosinophils/100 WBC Auto (Bl d)Ordered By: Hudson De Leon on 10-15-2022 Eosinophils/100 WBC (Bld) 1.6 % . [facility] Erythrocyte Sedimentation Ra natan 10-15-2022 ESR (Bld) [Velocity] 6 mm/h Normal 0-19 [facility] Comment on above: Result Comment: PERF ORMED BY: [place] [address] PATHOLOGIST SCREEN PRINTING MACHINE LOADER UNLOADER KRISTIE BAKER M.D. Performed By: #### C 4, C3, CH50 #### [facility] , #### ADDONUAPLUS, CBC, ESR, CMP #### [address] Erythrocyte distribution wid th Auto (RBC) [Ratio]Ordered By: Hudson De Leon on 10-15-2022 Erythrocyte distribution width (RBC) [Ratio] 14.2 % 12.0-14.8 [facility] Erythrocyte sedimentation ra te by Photometric methodOrdered By: Hudson De Leon on 10-15-2022 ESR Photometric method (Bld) [Velocity] 6 mm/hr 0-19 [facility] Globulin Calc (S) [Mass/Vol] Ordered By: Hudson De Leon on 10-15-2022 Globulin (S) [Mass/Vol] 2.8 g/dL [facility] Glucose [Mass/volume] in Ser um or PlasmaOrdered By: Hudson De Leon on 10-15-2022 Glucose [Mass/Vol] 139 mg/dL 70-100 [facility] Comment on above: ADA recommended refe rence rangeRandom Glucose Reference Range is dependent on time and content of last meal. Glucose of more than 200 mg/dL in a nonstressed, ambulatory subject supports the diagnosis of Diabetes Mellitus. Hematocrit Auto (Bld) [Volum e fraction]Ordered By: Hudson De Leon on 10-15-2022 Hematocrit (Bld) [Volume fraction] 42.6 % 38.8-50.0 [facility] Hemoglobin [Mass/volume] in BloodOrdered By: Hudson De Leon on 10-15-2022 Hemoglobin (Bld) [Mass/Vol] 14.4 g/dL 13.0-17.0 [facility] Ketones Auto test strip (U) [Mass/Vol]Ordered By: Hudson De Leon on 10-15-2022 Ketones (U) [Mass/Vol] Negative Negative [facility] - UrinalysisOrder ed By: Hudson De Leon on 10-15-2022 Hyaline casts LM Ql (Urine sed) None seen [LPF] 0-8 [facility] Leukocytes [#/volume] correc leah for nucleated erythrocytes in Blood by Automated counOrdered By: Hudson De Leon on 10-15-2022 WBC corrected for nucl RBC Auto (Bld) [#/Vol] 4.9 10*3/uL 4.1-10.5 [facility] Lymphocytes Auto (Bld) [#/Vo l]Ordered By: Hudson De Leon on 10-15-2022 Lymphocytes (Bld) [#/Vol] 1.0 10*3/uL 1.00-4.8 [facility] Lymphocytes/100 WBC Auto (Bl d)Ordered By: Hudson De Leon on 10-15-2022 Lymphocytes/100 WBC (Bld) 20.0 % . [facility] MCH Auto (RBC) [Entitic mass ]Ordered By: Hudson De Leon on 10-15-2022 MCH (RBC) [Entitic mass] 31.2 pg 27.5-35.2 [facility] MCHC Auto (RBC) [Mass/Vol]Or dered By: Hudson De Leon on 10-15-2022 MCHC (RBC) [Mass/Vol] 33.7 g/dL 32.5-35.6 [facility] MCV Auto (RBC) [Entitic vol] Ordered By: Hudson De Leon on 10-15-2022 MCV (RBC) [Entitic vol] 92.8 fL 83.5-101 [facility] Monocytes Auto (Bld) [#/Vol] Ordered By: Hudson De Leon on 10-15-2022 Monocytes (Bld) [#/Vol] 0.4 10*3/uL 0.0-0.8 [facility] Monocytes/100 WBC Auto (Bld) Ordered By: Hudson De Leon on 10-15-2022 Monocytes/100 WBC (Bld) 8.6 % . [facility] Neutrophils Auto (Bld) [#/Vo l]Ordered By: Hudson De Leon on 10-15-2022 Neutrophils (Bld) [#/Vol] 3.4 10*3/uL 1.8-7.7 [facility] Neutrophils/100 WBC Auto (Bl d)Ordered By: Hudson De Leon on 10-15-2022 Neutrophils/100 WBC (Bld) 69.3 % . [facility] Nitrite Test strip Ql (U)Ord ered By: Hudson De Leon on 10-15-2022 Nitrite Ql (U) Negative Negative [facility] No Panel InformationOrdered By: Hudson De Leon on 10-15-2022 Estimated GFR (CKD-EPI) > 60.0 mL/Min [facility] Creatinine Clearance (Chem N/A [facility] Nucleated erythrocytes [Pres ence] in Blood by Automated countOrdered By: Hudson De Leon on 10-15-2022 Nucleated RBC Auto Ql (Bld) 0.1 /100{WBC} 0-0.5 [facility] Platelet mean volume Auto (B ld) [Entitic vol]Ordered By: Hudson De Leon on 10-15-2022 Platelet mean volume (Bld) [Entitic vol] 9.1 fL 6.6-10.1 [facility] Platelets Auto (Bld) [#/Vol] Ordered By: Hudson De Leon on 10-15-2022 Platelets (Bld) [#/Vol] 196 10*3/uL 150-450 [facility] Potassium [Moles/volume] in Serum or PlasmaOrdered By: Hudson De Leon on 10-15-2022 Potassium [Moles/Vol] 4.4 mmol/L 3.5-5.1 [facility] Protein Auto test strip (U) [Mass/Vol]Ordered By: Hudson De Leon on 10-15-2022 Protein (U) [Mass/Vol] Negative Negative [facility] Protein [Mass/volume] in Ser um or PlasmaOrdered By: Hudson De Leon on 10-15-2022 Protein [Mass/Vol] 6.9 g/dL 6.4-8.9 [facility] RBC Auto (Bld) [#/Vol]Ordere d By: Hudson De Leon on 10-15-2022 RBC (Bld) [#/Vol] 4.60 10*6/uL 3.90-5.60 [facility] Serum or plasma albumin/glob ulin mass ratioOrdered By: Hudson De Leon on 10-15-2022 Albumin/Globulin [Mass ratio] 1.5 {ratio} [facility] Serum or plasma anion gap de terminationOrdered By: Hudson De Leon on 10-15-2022 Anion gap [Moles/Vol] 9.6 mmol/L 6.0-15.0 [facility] Sodium [Moles/volume] in Ser um or PlasmaOrdered By: Hudson De Leon on 10-15-2022 Sodium [Moles/Vol] 139 mmol/L 136-145 [facility] Specific gravity Auto test s trip (U) [Rel density]Ordered By: Hudson De Leon on 10-15-2022 Specific gravity (U) [Rel density] 1.022 1.001-1.03 0 [facility] Squamous epithelial cells de tection in urine sediment by light microscopyOrdered By: Hudson De Leon on 10-15-2022 Epithelial cells.squamous LM Ql (Urine sed) None seen [HPF] 0-2 [facility] Urea nitrogen [Mass/volume] in Serum or PlasmaOrdered By: Hudson De Leon on 10-15-2022 Urea nitrogen [Mass/Vol] 24 mg/dL 7-25 [facility] Urine bacteria detection by automated methodOrdered By: Hudson De Leon on 10-15-2022 Bacteria Auto Ql (U) None seen None Seen [facility] Urine clarity by refractomet ry automatedOrdered By: Hudson De Leon on 10-15-2022 Clarity Refractometry automated (U) Clear Clear [facility] Urine glucose measurement by automated test strip (mass/volume)Ordered By: Hudson De Leon on 10-15-2022 Glucose Auto test strip (U) [Mass/Vol] Normal mg/dL Normal [facility] Urine hemoglobin detection b y automated test stripOrdered By: Hudson De Leon on 10-15-2022 Hemoglobin Auto test strip Ql (U) Negative Negative [facility] Urine leukocyte esterase det ection by automated test stripOrdered By: Hudson De Leon on 10-15-2022 Leukocyte esterase Auto test strip Ql (U) Negative Negative [facility] Urobilinogen Auto test strip (U) [Mass/Vol]Ordered By: Hudson De Leon on 10-15-2022 Urobilinogen (U) [Mass/Vol] Normal mg/dL Normal [facility] WBC Auto (Bld) [#/Vol]Ordere d By: Hudson De Leon on 10-15-2022 WBC (Bld) [#/Vol] 4.9 10*3/uL 4.1-10.5 [facility] pH Auto test strip (U)Ordere d By: Hudson De Leon on 10-15-2022 pH (U) 5.5 [pH] 5.0-9.0 [facility] Ambulatory Visit Summaryon 0 10-02-2022 Ambulatory [...] Appointments Saturday 2:15 PM EDT With: CHRIS RIVERA, Shun Mirza Where: [facility] General Surgery Office/Clini c Noteon 10-02-2022 General [...] Primary ma (more content not included)... Normal [facility] Comment on above: Result Comment: Elec tronically Signed By: DOREEN RIVERA, Arely Clarke.br\Date and Time Signed: 10/02/22 14:05 EDT RAD - Ultrasound Reporton RAD - Ultrasound Report [id number]: 127 Normal [facility] Lab Reportson 09-17-2022 Lab Reports [id number]:1 27 Normal [facility] Covid-19 PCR (CVDTB)on 08-23 SARS-CoV-2 (COVID-19) RNA LU+probe Ql (Unsp spec) Not detected Normal NOT DETECTED [facility] Comment on above: Result Comment: This test is not yet approved or cleared by the [place] FDA. When there are no FDA-approved or cleared tests available, and other criteria are met, FDA can make tests available under an emergency access mechanism called an Emergency Use Authorization (EUA). The EUA for this test is supported by the [employer] of Health and Human Service's (HHS's) declaration [...] SARS-CoV-2. Performed By: #### I NSULIN #### [facility] [address] [place] [address] Dr. Carolyn King SYMPTOMATIC COVID-19 ANTIGEN on 09-11-2022 EUA Statement SEE BELOW Normal [facility] Comment on above: Result Comment: This test [...] sooner. Performed By: #### C VDAGS #### [facility] [address] [place], [place] [address] Dr. Carolyn King SARS-CoV-2 (COVID-19) RNA LU+probe Ql (Unsp spec) Negative Normal NEGATIVE [facility] Comment on above: Performed By: #### C VDAGS #### [facility] [address] [place] [address] FOOT RT WO [...] LAURY ZEPEDA Date: 2022-08-31 08:09 Normal [facility] US SINGLE QUAD RT UPPERon US SINGLE [...] by: LAURY ZEPEDA Date: 2022-08-31 07:41 Normal [facility] POINT OF CARE GLUCOSEon 05-24 Glucose [Mass/Vol] 125 mg/dL Critically high 74-[address] [facility] Comment on above: Performed By: #### I NSULIN #### [facility] [address] [place] [address] [address] Carolyn King Glucose [Mass/Vol] 105 mg/dL Normal 74-106 [facility] Comment on above: Performed By: #### I NSULIN #### [facility] [address] [place] [address] [address] Carolyn King XR FOOT RT 2Von [...] BANDAR SAENZ Date: 2022-06-07 14:29 Normal [facility] Covid-19 PCR (CVDTB)on 05-24 SARS-CoV-2 (COVID-19) RNA LU+probe Ql (Unsp spec) Not detected Normal NOT DETECTED [facility] Comment on above: Result Comment: This test is not yet approved or cleared by the [place] FDA. When there are no FDA-approved or cleared tests available, and other criteria are met, FDA can make tests available under an emergency access mechanism called an Emergency Use Authorization (EUA). The EUA for this test is supported by the [place] of Health and Human Service's (HHS's) declaration [...] SARS-CoV-2. Performed By: #### I NSULIN #### [facility] [address] [place] [address] Dr. Carolyn King Albumin [Mass/volume] in Ser um or PlasmaOrdered By: Hudson De Leon on 05-23-2022 Albumin [Mass/Vol] 3.9 g/dL 3.2-5.5 [facility] Automated erythrocytes count in urine sediment (number/area)Ordered By: Hudson De Leon on 05-23-2022 RBC Auto (Urine sed) [#/Area] None seen [HPF] 0-4 [facility] Automated leukocytes count i n urine sediment (number/area)Ordered By: Hudson De Leon on 05-23-2022 WBC Auto (Urine sed) [#/Area] None seen [HPF] 0-4 [facility] Basophils Auto (Bld) [#/Vol] Ordered By: Hudson De Leon on 05-23-2022 Basophils (Bld) [#/Vol] 0.0 10*3/uL 0.0-0.2 [facility] Basophils/100 WBC Auto (Bld) Ordered By: Hudson De Leon on 05-23-2022 Basophils/100 WBC (Bld) 0.6 % . [facility] Bilirubin Test strip Ql (U)O rdered By: Hudson De Leon on 05-23-2022 Bilirubin Ql (U) Negative Negative [facility] Color Auto (U)Ordered By: Jessica ttdwain De Leon on 05-23-2022 Color (U) Yellow Yellow [facility] Complement C3on 05-23-2022 Complement C3 130 mg/dL Normal 82-167 [facility] Comment on above: Result Comment: Perf ormed at: - [facility] [id number] Personal Financial Planner: Derek Toscano PhD, Phone: [phone] Performed By: #### C BC, ESR, ADDONUAPLUS, CMP #### [address] #### C4, C3, CH50 #### [facility] , Complement C4on 05-23-2022 Complement C4 27 mg/dL Normal 12-38 [facility] Comment on above: Result Comment: PERF ORMED BY: [place] [address] PATHOLOGIST SCREEN PRINTING MACHINE LOADER UNLOADER KRISTIE BAKER M.D. Performed By: #### C BC, ESR, ADDONUAPLUS, CMP #### [address] #### C4, C3, CH50 #### [facility] , Complement Total (CH50)on Complement Total (CH50) 52 Normal >41 [facility] Comment on above: Result Comment: Age [...] out of range values. Performed at: - [facility] [id number] Personal Financial Planner: Derek Toscano PhD, Phone: [phone] PERFORMED BY: [place] [address] PATHOLOGIST SCREEN PRINTING MACHINE LOADER UNLOADER KRISTIE BAKER M.D. Performed By: #### C BC, ESR, ADDONUAPLUS, CMP #### [address] #### C4, C3, CH50 #### [facility] , Complete Blood Count Auto Di ffon 05-23-2022 Basophils (Bld) [#/Vol] 0.0 10*3/uL Normal 0.0-0.2 [facility] Comment on above: Performed By: #### C BC, ESR, ADDONUAPLUS, CMP #### [place] [address] [place] #### C4, C3, CH50 #### [facility] , Basophils/100 WBC (Bld) 0.6 % Normal . [facility] Comment on above: Performed By: #### C BC, ESR, ADDONUAPLUS, CMP #### [place] [address] [place] #### C4, C3, CH50 #### [facility] , Eosinophils (Bld) [#/Vol] 0.0 10*3/uL Normal 0.0-0.45 [facility] Comment on above: Performed By: #### C BC, ESR, ADDONUAPLUS, CMP #### [place] [address] [place] #### C4, C3, CH50 #### [facility] , Eosinophils/100 WBC (Bld) 0.9 % Normal . [facility] Comment on above: Performed By: #### C BC, ESR, ADDONUAPLUS, CMP #### [place] [address] [place] #### C4, C3, CH50 #### [facility] , Erythrocyte distribution width (RBC) [Ratio] 13.4 % Normal 12.0-14.8 [facility] Comment on above: Performed By: #### C BC, ESR, ADDONUAPLUS, CMP #### [place] [address] [place] #### C4, C3, CH50 #### [facility] , Hematocrit (Bld) [Volume fraction] 44.5 % Normal 38.8-50.0 [facility] Comment on above: Performed By: #### C BC, ESR, ADDONUAPLUS, CMP #### [address] #### C4, C3, CH50 #### [facility] , Hemoglobin (Bld) [Mass/Vol] 14.9 g/dL Normal 13.0-17.0 [facility] Comment on above: Performed By: #### C BC, ESR, ADDONUAPLUS, CMP #### [address] #### C4, C3, CH50 #### [facility] , Lymphocytes (Bld) [#/Vol] 1.1 10*3/uL Normal 1.00-4.8 [facility] Comment on above: Performed By: #### C BC, ESR, ADDONUAPLUS, CMP #### [address] #### C4, C3, CH50 #### [facility] , Lymphocytes/100 WBC (Bld) 21.1 % Normal . [facility] Comment on above: Performed By: #### C BC, ESR, ADDONUAPLUS, CMP #### [address] #### C4, C3, CH50 #### [facility] , MCH (RBC) [Entitic mass] 31.2 pg Normal 27.5-35.2 [facility] Comment on above: Performed By: #### C BC, ESR, ADDONUAPLUS, CMP #### [place] [address] [place] #### C4, C3, CH50 #### [facility] , MCV (RBC) [Entitic vol] 93.3 fL Normal 83.5-101 [facility] Comment on above: Performed By: #### C BC, ESR, ADDONUAPLUS, CMP #### [place] [address] [place] #### C4, C3, CH50 #### [facility] , Mean Corpuscular HGB Conc 33.5 g/dL Normal 32.5-35.6 [facility] Comment on above: Performed By: #### C BC, ESR, ADDONUAPLUS, CMP #### [facility] [address] [place] [address] [place] #### C4, C3, CH50 #### [facility] , Monocytes (Bld) [#/Vol] 0.5 10*3/uL Normal 0.0-0.8 [facility] Comment on above: Performed By: #### C BC, ESR, ADDONUAPLUS, CMP #### [place] [address] [place] #### C4, C3, CH50 #### [facility] , Monocytes/100 WBC (Bld) 10.3 % Normal . [facility] Comment on above: Performed By: #### C BC, ESR, ADDONUAPLUS, CMP #### [facility] [address] [place] [address] [place] #### C4, C3, CH50 #### [facility] , Neutrophils (Bld) [#/Vol] 3.5 10*3/uL Normal 1.8-7.7 [facility] Comment on above: Performed By: #### C BC, ESR, ADDONUAPLUS, CMP #### [place] [address] [place] #### C4, C3, CH50 #### [facility] , Neutrophils/100 WBC (Bld) 67.1 % Normal . [facility] Comment on above: Performed By: #### C BC, ESR, ADDONUAPLUS, CMP #### [place] [address] [place] #### C4, C3, CH50 #### [facility] , NRBC% 0.2 /100{WBC} Normal 0-0.5 [facility] Comment on above: Performed By: #### C BC, ESR, ADDONUAPLUS, CMP #### [facility] [address] [place] [address] #### C4, C3, CH50 #### [facility] , Platelet mean volume (Bld) [Entitic vol] 9.4 fL Normal 6.6-10.1 [facility] Comment on above: Performed By: #### C BC, ESR, ADDONUAPLUS, CMP #### [place] [address] [place] #### C4, C3, CH50 #### [facility] , Platelets (Bld) [#/Vol] 234 10*3/uL Normal 150-450 [facility] Comment on above: Performed By: #### C BC, ESR, ADDONUAPLUS, CMP #### [address] #### C4, C3, CH50 #### [facility] , RBC (Bld) [#/Vol] 4.77 10*6/uL Normal 3.90-5.60 [facility] Comment on above: Performed By: #### C BC, ESR, ADDONUAPLUS, CMP #### [facility] [address] [place] [address] [place] #### C4, C3, CH50 #### [facility] , WBC (Bld) [#/Vol] 5.2 10*3/uL Normal 4.1-10.5 [facility] Comment on above: Performed By: #### C BC, ESR, ADDONUAPLUS, CMP #### [place] [address] [place] #### C4, C3, CH50 #### [facility] , Comprehensive Metabolic Pane tanika 05-23-2022 Albumin [Mass/Vol] 3.9 g/dL Normal 3.2-5.5 [facility] Comment on above: Performed By: #### C BC, ESR, ADDONUAPLUS, CMP #### [facility] [address] [place] [address] #### C4, C3, CH50 #### [facility] , Albumin/Globulin [Mass ratio] 1.4 {ratio} Normal [facility] Comment on above: Performed By: #### C BC, ESR, ADDONUAPLUS, CMP #### [address] #### C4, C3, CH50 #### [facility] , ALP [Catalytic activity/Vol] 90 U/L Normal 32-92 [facility] Comment on above: Result Comment: PERF ORMED BY: [place] [address] PATHOLOGIST SCREEN PRINTING MACHINE LOADER UNLOADER KRISTIE BAKER M.D. Performed By: #### C BC, ESR, ADDONUAPLUS, CMP #### [address] #### C4, C3, CH50 #### [facility] , ALT [Catalytic activity/Vol] 27 U/L Normal 10-60 [facility] Comment on above: Performed By: #### C BC, ESR, ADDONUAPLUS, CMP #### [facility] [address] [place] [address] [place] #### C4, C3, CH50 #### [facility] , Anion gap [Moles/Vol] 12.3 mmol/L Normal 6.0-15.0 [facility] Comment on above: Performed By: #### C BC, ESR, ADDONUAPLUS, CMP #### [place] [address] [place] #### C4, C3, CH50 #### [facility] , AST [Catalytic activity/Vol] 31 U/L Normal 10-42 [facility] Comment on above: Performed By: #### C BC, ESR, ADDONUAPLUS, CMP #### [facility] [address] [place] [address] [place] #### C4, C3, CH50 #### [facility] , Bilirubin [Mass/Vol] 0.6 mg/dL Normal 0.3-1.2 [facility] Comment on above: Performed By: #### C BC, ESR, ADDONUAPLUS, CMP #### [facility] [address] [place] [address] [place] #### C4, C3, CH50 #### [facility] , Calcium [Mass/Vol] 9.1 mg/dL Normal 8.2-10.2 [facility] Comment on above: Performed By: #### C BC, ESR, ADDONUAPLUS, CMP #### [facility] [address] [place] [address] [place] #### C4, C3, CH50 #### [facility] , Chloride [Moles/Vol] 102 mmol/L Normal 95-114 [facility] Comment on above: Performed By: #### C BC, ESR, ADDONUAPLUS, CMP #### [place] [address] [place] #### C4, C3, CH50 #### [facility] , CO2 [Moles/Vol] 26.7 mmol/L Normal 22.0-30.0 [facility] Comment on above: Performed By: #### C BC, ESR, ADDONUAPLUS, CMP #### [facility] [address] [place] [address] [place] #### C4, C3, CH50 #### [facility] , Creatinine [Mass/Vol] 0.92 mg/dL Normal 0.64-1.27 [facility] Comment on above: Performed By: #### C BC, ESR, ADDONUAPLUS, CMP #### [place] [address] [place] #### C4, C3, CH50 #### [facility] , Estimated GFR ( Jennifer > 60 Normal [facility] Comment on above: Result Comment: GFR estimated reference range: According to KDOQI guidelines, <60 ml/min/1.73m2 is sufficient to diagnose a patient with chronic kidney disease. Performed By: #### C BC, ESR, ADDONUAPLUS, CMP #### [place] [address] [place] #### C4, C3, CH50 #### [facility] , Estimated GFR (Non- Am > 60 [facility] Comment on above: Performed By: #### C BC, ESR, ADDONUAPLUS, CMP #### [place] [address] [place] #### C4, C3, CH50 #### [facility] , Globulin (S) [Mass/Vol] 2.8 g/dL [facility] Comment on above: Performed By: #### C BC, ESR, ADDONUAPLUS, CMP #### [place] [address] [place] #### C4, C3, CH50 #### [facility] , Glucose [Mass/Vol] 75 mg/dL Normal 70-100 [facility] Comment on above: Result Comment: [place] Glucose Reference Range is dependent on time and content of last meal. Glucose of more than 200 mg/dL in a nonstressed, ambulatory subject supports the diagnosis of Diabetes Mellitus. ADA recommended reference range Performed By: #### C BC, ESR, ADDONUAPLUS, CMP #### [place] [address] [place] #### C4, C3, CH50 #### [facility] , Potassium [Moles/Vol] 4.0 mmol/L Normal 3.5-5.1 [facility] Comment on above: Performed By: #### C BC, ESR, ADDONUAPLUS, CMP #### [facility] [address] [place] [address] [place] #### C4, C3, CH50 #### [facility] , Protein [Mass/Vol] 6.7 g/dL Normal 6.1-7.9 [facility] Comment on above: Performed By: #### C BC, ESR, ADDONUAPLUS, CMP #### [facility] [address] [place] [address] [place] #### C4, C3, CH50 #### [facility] , Sodium [Moles/Vol] 137 mmol/L Normal 136-146 [facility] Comment on above: Performed By: #### C BC, ESR, ADDONUAPLUS, CMP #### [place] [address] [place] #### C4, C3, CH50 #### [facility] , Urea nitrogen [Mass/Vol] 11 mg/dL Normal 9-23 [facility] Comment on above: Performed By: #### C BC, ESR, ADDONUAPLUS, CMP #### [facility] [address] [place] [address] [place] #### C4, C3, CH50 #### [facility] , Creatinine and Glomerular fi ltration rate.predicted panel (S/P/Bld)Ordered By: Hudson De Leon on 05-23-2022 Creatinine [Mass/Vol] 0.92 mg/dL 0.64-1.27 [facility] Dipstick and Microscopicon 1 07-23-2021 Appearance (U) Clear Normal Clear [facility] Comment on above: Order Comment: Name Collection Type:: Clean-Voided Midstream Performed By: #### C BC, ESR, ADDONUAPLUS, CMP #### [place] [address] [place] #### C4, C3, CH50 #### [facility] , Bacteria,Urine None Seen Normal None Seen [facility] Comment on above: Order Comment: Name Collection Type:: Clean-Voided Midstream Performed By: #### C BC, ESR, ADDONUAPLUS, CMP #### [address] #### C4, C3, CH50 #### [facility] , Bilirubin,Urine Negative Normal Negative [facility] Comment on above: Order Comment: Name Collection Type:: Clean-Voided Midstream Performed By: #### C BC, ESR, ADDONUAPLUS, CMP #### [address] #### C4, C3, CH50 #### [facility] , Color (U) Yellow Normal Yellow [facility] Comment on above: Order Comment: Name Collection Type:: Clean-Voided Midstream Performed By: #### C BC, ESR, ADDONUAPLUS, CMP #### [address] #### C4, C3, CH50 #### [facility] , Glucose Ql (U) Normal Normal Normal [facility] Comment on above: Order Comment: Name Collection Type:: Clean-Voided Midstream Performed By: #### C BC, ESR, ADDONUAPLUS, CMP #### [address] #### C4, C3, CH50 #### [facility] , Hyaline Casts,Urine None Seen Normal 0-8 [facility] Comment on above: Order Comment: Name Collection Type:: Clean-Voided Midstream Result Comment: PERF ORMED BY: [place] [address] PATHOLOGIST SCREEN PRINTING MACHINE LOADER UNLOADER KRISTIE BAKER M.D. Performed By: #### C BC, ESR, ADDONUAPLUS, CMP #### [address] #### C4, C3, CH50 #### [facility] , Ketones Ql (U) Negative Normal Negative [facility] Comment on above: Order Comment: Name Collection Type:: Clean-Voided Midstream Performed By: #### C BC, ESR, ADDONUAPLUS, CMP #### [facility] [address] [place] [address] #### C4, C3, CH50 #### [facility] , Leukocyte esterase Test strip Ql (U) Negative Normal Negative [facility] Comment on above: Order Comment: Name Collection Type:: Clean-Voided Midstream Performed By: #### C BC, ESR, ADDONUAPLUS, CMP #### [address] #### C4, C3, CH50 #### [facility] , Nitrite,Urine Negative Normal Negative [facility] Comment on above: Order Comment: Name Collection Type:: Clean-Voided Midstream Performed By: #### C BC, ESR, ADDONUAPLUS, CMP #### [address] #### C4, C3, CH50 #### [facility] , Occult Blood,Urine Negative Normal Negative [facility] Comment on above: Order Comment: Name Collection Type:: Clean-Voided Midstream Performed By: #### C BC, ESR, ADDONUAPLUS, CMP #### [facility] [address] [place] [address] #### C4, C3, CH50 #### [facility] , pH (U) 5.5 [pH] Normal 5.0-9.0 [facility] Comment on above: Order Comment: Name Collection Type:: Clean-Voided Midstream Performed By: #### C BC, ESR, ADDONUAPLUS, CMP #### [facility] [address] [place] [address] #### C4, C3, CH50 #### [facility] , Protein,Urine Negative Normal Negative [facility] Comment on above: Order Comment: Name Collection Type:: Clean-Voided Midstream Performed By: #### C BC, ESR, ADDONUAPLUS, CMP #### [address] #### C4, C3, CH50 #### [facility] , RBC,Urine None Seen Normal 0-4 [facility] Comment on above: Order Comment: Name Collection Type:: Clean-Voided Midstream Performed By: #### C BC, ESR, ADDONUAPLUS, CMP #### [address] #### C4, C3, CH50 #### [facility] , Specificy Smiley,Urine 1.014 Normal 1.001-1.03 0 [facility] Comment on above: Order Comment: Name Collection Type:: Clean-Voided Midstream Performed By: #### C BC, ESR, ADDONUAPLUS, CMP #### [address] #### C4, C3, CH50 #### [facility] , Squamous Epithelial Cell,Urine None Seen Normal 0-2 [facility] Comment on above: Order Comment: Name Collection Type:: Clean-Voided Midstream Performed By: #### C BC, ESR, ADDONUAPLUS, CMP #### [address] #### C4, C3, CH50 #### [facility] , Urobilinogen,Urine Normal Normal Normal [facility] Comment on above: Order Comment: Name Collection Type:: Clean-Voided Midstream Performed By: #### C BC, ESR, ADDONUAPLUS, CMP #### [place] [address] [place] #### C4, C3, CH50 #### [facility] , WBC,Urine None Seen Normal 0-4 [facility] Comment on above: Order Comment: Name Collection Type:: Clean-Voided Midstream Performed By: #### C BC, ESR, ADDONUAPLUS, CMP #### [facility] [address] [place] [address] [place] #### C4, C3, CH50 #### [facility] , Eosinophils Auto (Bld) [#/Vo l]Ordered By: Hudson De Leon on 05-23-2022 Eosinophils (Bld) [#/Vol] 0.0 10*3/uL 0.0-0.45 [facility] Eosinophils/100 WBC Auto (Bl d)Ordered By: Hudson De Leon on 05-23-2022 Eosinophils/100 WBC (Bld) 0.9 % . [facility] Erythrocyte Sedimentation Ra natan 05-23-2022 ESR (Bld) [Velocity] 6 mm/h Normal 0-19 [facility] Comment on above: Result Comment: PERF ORMED BY: [place] [address] PATHOLOGIST SCREEN PRINTING MACHINE LOADER UN[employer]ER KRISTIE BAKER M.D. Performed By: #### C BC, ESR, ADDONUAPLUS, CMP #### [facility] [address] #### C4, C3, CH50 #### [facility] , Erythrocyte distribution wid th Auto (RBC) [Ratio]Ordered By: Hudson De Leon on 05-23-2022 Erythrocyte distribution width (RBC) [Ratio] 13.4 % 12.0-14.8 [facility] Erythrocyte sedimentation ra te by Photometric methodOrdered By: Hudson De Leon on 05-23-2022 ESR Photometric method (Bld) [Velocity] 6 mm/hr 0-19 [facility] Estimated glomerular filtrat ion rate (GFR) non- AmericanOrdered By: Hudson De Leon on 05-23-2022 GFR/1.73 sq M.predicted among non-blacks MDRD (S/P/Bld) [Vol rate/Area] > 60 mL/Min [facility] Globulin Calc (S) [Mass/Vol] Ordered By: Hudson De Leon on 05-23-2022 Globulin (S) [Mass/Vol] 2.8 g/dL [facility] Hematocrit Auto (Bld) [Volum e fraction]Ordered By: Hudson De Leon on 05-23-2022 Hematocrit (Bld) [Volume fraction] 44.5 % 38.8-50.0 [facility] Hemoglobin [Mass/volume] in BloodOrdered By: Hudson De Leon on 05-23-2022 Hemoglobin (Bld) [Mass/Vol] 14.9 g/dL 13.0-17.0 [facility] Ketones Auto test strip (U) [Mass/Vol]Ordered By: Hudson De Leon on 05-23-2022 Ketones (U) [Mass/Vol] Negative Negative [facility] - UrinalysisOrder ed By: Hudson De Leon on 05-23-2022 Hyaline casts LM Ql (Urine sed) None seen [LPF] 0-8 [facility] Leukocytes [#/volume] correc leah for nucleated erythrocytes in Blood by Automated counOrdered By: Hudson De Leon on 05-23-2022 WBC corrected for nucl RBC Auto (Bld) [#/Vol] 5.2 10*3/uL 4.1-10.5 [facility] Lymphocytes Auto (Bld) [#/Vo l]Ordered By: Hudson De Leon on 05-23-2022 Lymphocytes (Bld) [#/Vol] 1.1 10*3/uL 1.00-4.8 [facility] Lymphocytes/100 WBC Auto (Bl d)Ordered By: Hudson De Leon on 05-23-2022 Lymphocytes/100 WBC (Bld) 21.1 % . [facility] MCH Auto (RBC) [Entitic mass ]Ordered By: Hudson De Leon on 05-23-2022 MCH (RBC) [Entitic mass] 31.2 pg 27.5-35.2 [facility] MCHC Auto (RBC) [Mass/Vol]Or dered By: Hudson De Leon on 05-23-2022 MCHC (RBC) [Mass/Vol] 33.5 g/dL 32.5-35.6 [facility] MCV Auto (RBC) [Entitic vol] Ordered By: Hudson De Leon on 05-23-2022 MCV (RBC) [Entitic vol] 93.3 fL 83.5-101 [facility] Monocytes Auto (Bld) [#/Vol] Ordered By: Hudson De Leon on 05-23-2022 Monocytes (Bld) [#/Vol] 0.5 10*3/uL 0.0-0.8 [facility] Monocytes/100 WBC Auto (Bld) Ordered By: Hudson De Leon on 05-23-2022 Monocytes/100 WBC (Bld) 10.3 % . [facility] Neutrophils Auto (Bld) [#/Vo l]Ordered By: Hudson De Leon on 05-23-2022 Neutrophils (Bld) [#/Vol] 3.5 10*3/uL 1.8-7.7 [facility] Neutrophils/100 WBC Auto (Bl d)Ordered By: Hudson De Leon on 05-23-2022 Neutrophils/100 WBC (Bld) 67.1 % . [facility] Nitrite Test strip Ql (U)Ord ered By: Hudson De Leon on 05-23-2022 Nitrite Ql (U) Negative Negative [facility] No Panel InformationOrdered By: Hudson De Leon on 05-23-2022 Estimated GFR () > 60 mL/Min [facility] Comment on above: GFR estimated refere nce range: According to KDOQI guidelines, <60 ml/min/1.73m2 is sufficient to diagnose a patient with chronic kidney disease. Pharmacy Creatinine Clearance (Chem N/A [facility] Nucleated erythrocytes [Pres ence] in Blood by Automated countOrdered By: Hudson De Leon on 05-23-2022 Nucleated RBC Auto Ql (Bld) 0.2 /100{WBC} 0-0.5 [facility] Platelet mean volume Auto (B ld) [Entitic vol]Ordered By: Hudson De Leon on 05-23-2022 Platelet mean volume (Bld) [Entitic vol] 9.4 fL 6.6-10.1 [facility] Platelets Auto (Bld) [#/Vol] Ordered By: Hudson De Leon on 05-23-2022 Platelets (Bld) [#/Vol] 234 10*3/uL 150-450 [facility] Protein Auto test strip (U) [Mass/Vol]Ordered By: Hudson De Leon on 05-23-2022 Protein (U) [Mass/Vol] Negative Negative [facility] Protein [Mass/volume] in Ser um or PlasmaOrdered By: Hudson De Leon on 05-23-2022 Protein [Mass/Vol] 6.7 g/dL 6.1-7.9 [facility] RBC Auto (Bld) [#/Vol]Ordere d By: Hudson De Leon on 05-23-2022 RBC (Bld) [#/Vol] 4.77 10*6/uL 3.90-5.60 [facility] Serum or plasma alanine gates otransferase measurement without P-5'-P (enzymatic activiOrdered By: Hudson De Leon on 05-23-2022 ALT No additional P-5'-P [Catalytic activity/Vol] 27 U/L 1060 [facility] Serum or plasma albumin/glob ulin mass ratioOrdered By: Hudson De Leon on 05-23-2022 Albumin/Globulin [Mass ratio] 1.4 {ratio} [facility] Serum or plasma alkaline amanda sphatase measurement (enzymatic activity/volume)Ordered By: Hudson De Leon on 05-23-2022 ALP [Catalytic activity/Vol] 90 U/L 32-92 [facility] Serum or plasma anion gap de terminationOrdered By: Hudson De Leon on 05-23-2022 Anion gap [Moles/Vol] 12.3 mmol/L 6.0-15.0 [facility] Serum or plasma aspartate am inotransferase measurement (enzymatic activity/volume)Ordered By: Hudson De Leon on 05-23-2022 AST [Catalytic activity/Vol] 31 U/L 10-42 [facility] Serum or plasma calcium karl urement (mass/volume)Ordered By: Hudson De Leon on 05-23-2022 Calcium [Mass/Vol] 9.1 mg/dL 8.2-10.2 [facility] Serum or plasma chloride reba surement (moles/volume)Ordered By: Hudson De Leon on 05-23-2022 Chloride [Moles/Vol] 102 mmol/L 95-114 [facility] Serum or plasma glucose karl urement (mass/volume)Ordered By: Hudson De Leon on 05-23-2022 Glucose [Mass/Vol] 75 mg/dL 70-100 [facility] Comment on above: ADA recommended refe rence rangeRandom Glucose Reference Range is dependent on time and content of last meal. Glucose of more than 200 mg/dL in a nonstressed, ambulatory subject supports the diagnosis of Diabetes Mellitus. Serum or plasma potassium me asurement (moles/volume)Ordered By: Hudson De Leon on 05-23-2022 Potassium [Moles/Vol] 4.0 mmol/L 3.5-5.1 [facility] Serum or plasma sodium measu rement (moles/volume)Ordered By: Hudson De Leon on 05-23-2022 Sodium [Moles/Vol] 137 mmol/L 136-146 [facility] Serum or plasma total biliru bin measurement (mass/volume)Ordered By: Hudson De Leon on 05-23-2022 Bilirubin [Mass/Vol] 0.6 mg/dL 0.3-1.2 [facility] Serum or plasma total carbon dioxide measurement (moles/volume)Ordered By: Hudson De Leon on 05-23-2022 CO2 [Moles/Vol] 26.7 mmol/L 22.0-30.0 [facility] Serum or plasma urea nitroge n measurement (mass/volume)Ordered By: Hudson De Leon on 05-23-2022 Urea nitrogen [Mass/Vol] 11 mg/dL 9-23 [facility] Specific gravity Auto test s trip (U) [Rel density]Ordered By: Hudson De Leon on 05-23-2022 Specific gravity (U) [Rel density] 1.014 1.001-1.03 0 [facility] Squamous epithelial cells de tection in urine sediment by light microscopyOrdered By: Hudson De Leon on 05-23-2022 Epithelial cells.squamous LM Ql (Urine sed) None seen [HPF] 0-2 [facility] Urine bacteria detection by automated methodOrdered By: Hudson De Leon on 05-23-2022 Bacteria Auto Ql (U) None seen None Seen [facility] Urine clarity by refractomet ry automatedOrdered By: Hudson De Leon on 05-23-2022 Clarity Refractometry automated (U) Clear Clear [facility] Urine glucose measurement by automated test strip (mass/volume)Ordered By: Hudson De Leon on 05-23-2022 Glucose Auto test strip (U) [Mass/Vol] Normal mg/dL Normal [facility] Urine hemoglobin detection b y automated test stripOrdered By: Hudson De Leon on 05-23-2022 Hemoglobin Auto test strip Ql (U) Negative Negative [facility] Urine leukocyte esterase det ection by automated test stripOrdered By: Hudson De Leon on 05-23-2022 Leukocyte esterase Auto test strip Ql (U) Negative Negative [facility] Urobilinogen Auto test strip (U) [Mass/Vol]Ordered By: Hudson De Leon on 05-23-2022 Urobilinogen (U) [Mass/Vol] Normal mg/dL Normal [facility] WBC Auto (Bld) [#/Vol]Ordere d By: Hudson De Leon on 05-23-2022 WBC (Bld) [#/Vol] 5.2 10*3/uL 4.1-10.5 [facility] pH Auto test strip (U)Ordere d By: Hudson De Leon on 05-23-2022 pH (U) 5.5 [pH] 5.0-9.0 [facility] BN SPINE, CERVICAL, 2 OR 3 V IEWSon 05-02-2022 BN SPINE, CERVICAL, 2 OR 3 VIEWS Patient Name: JAY CARR STUDY: SPINE, CERVICAL, 2 OR 3 VIEWS; 05/02/2022 9:46 am INDICATION: cervical post op 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 COMPARISON: 08/03/2021 ACCESSION NUMBER(S): [id number] ORDERING CLINICIAN: KENTON LAWSON FINDINGS: Two views of the cervical spine. Patient is status post anterior cervical discectomy and fusion from C5-C7. No hardware complication. No acute fracture. No focal subluxation. Mild multilevel degenerative changes. IMPRESSION: Postsurgical changes status post ACDF from C5-C7. No hardware complication. Mild multilevel spondylosis. Electronically signed by: FRANCISCO FOLEY MD [facility] BN SPINE, LUMBOSACRAL; 2 OR 3 VIEWSon 05-02-2022 BN SPINE, LUMBOSACRAL; 2 OR 3 VIEWS Patient Name: JAY CARR STUDY: SPINE, LUMBOSACRAL; 2 OR 3 VIEWS; 05/02/2022 9:46 am INDICATION: AP/LAT M54.50: Lumbar back pain M48.062: Lumbar stenosis with neurogenic claudication. COMPARISON: 01/29/2022 ACCESSION NUMBER(S): [id number] ORDERING CLINICIAN: KENTON LAWSON FINDINGS: Two views [...] spondylosis. Electronically signed by: FRANCISCO FOLEY MD [facility] Established Visit (Orthopaed ic Surgery)on [...] Present Illness Jay is a pleasant 62-year-old nnfva-nilv-yyrrscbe male who presents today with his for [...] by phys (more content not included)... [facility] 05-02-2022 XR Cervical spine 3 Views Normal [facility] DO Work Phone: XR Lumbar spine AP and Lateral Normal [facility] DO Work Phone: INSULINon 03-29-2022 Insulin 14.5 uIU/mL Normal 2.6-24.9 [facility] Comment on above: Performed By: #### I NSULIN #### [facility] [address] [place] [address] Dr. Carolyn King CBC AUTO DIFFon 03-28-2022 BASO # 0.0 103/ul Normal 0.0-0.1 [facility] Comment on above: Performed By: #### C BC #### [facility] [address] [address] [address] Carolyn King Basophils/100 WBC (Bld) 0.6 % Normal 0.2-2.0 [facility] Comment on above: Performed By: #### C BC #### [facility] [address] [place] [address] Dr. Carolyn King EO # 0.1 103/ul Normal 0.0-0.7 [facility] Comment on above: Performed By: #### C BC #### [facility] [address] [place] [address] Dr. Carolyn King Eosinophils/100 WBC (Bld) 1.6 % Normal 0.9-7.0 [facility] Comment on above: Performed By: #### C BC #### [facility] [address] [place] [address] Dr. Carolyn King Erythrocyte distribution width (RBC) [Ratio] 13.2 % Normal 11.0-15.0 [facility] Comment on above: Performed By: #### C BC #### [facility] [address] [place] [address] Dr. Carolyn King Hematocrit (Bld) [Volume fraction] 44.5 % Normal 42.0-54.0 [facility] Comment on above: Performed By: #### C BC #### [facility] [address] [place] [address] Dr. Carolyn King Hemoglobin (Bld) [Mass/Vol] 15.0 g/dL Normal 14.0-18.0 [facility] Comment on above: Performed By: #### C BC #### [facility] [address] [place] [address] Dr. Carolyn King IG # 0.01 10e3/ul Normal 0.00-0.03 [facility] Comment on above: Performed By: #### C BC #### [facility] [address] [place] [address] Dr. Carolyn King IG % 0.2 % Normal 0.0-0.5 [facility] Comment on above: Performed By: #### C BC #### [facility] [address] [place] [address] Dr. Carolyn King LYMPH # 1.0 103/ul Critically low 1.2-3.8 [facility] Comment on above: Performed By: #### C BC #### [facility] [address] [place] [address] Dr. Carolyn King Lymphocytes/100 WBC (Bld) 15.8 % Critically low 20.5-60.0 [facility] Comment on above: Performed By: #### C BC #### [facility] [address] [place] [address] Dr. Carolyn King MANUAL DIFF REQ NO Normal [facility] Comment on above: Performed By: #### C BC #### [facility] [address] [place] [address] Dr. Carolyn King MCH (RBC) [Entitic mass] 31.1 pg Normal 25.9-34.0 [facility] Comment on above: Performed By: #### C BC #### [facility] [address] [place] [address] Dr. Carolyn King MCHC (RBC) [Mass/Vol] 33.7 g/dL Normal 29.9-35.2 [facility] Comment on above: Performed By: #### C BC #### [facility] [address] [place] [address] Dr. Carolyn King MCV (RBC) [Entitic vol] 92.3 fL Normal 80.0-94.0 [facility] Comment on above: Performed By: #### C BC #### [facility] [address] [place] [address] Dr. Carolyn King MONO # 0.7 103/ul Normal 0.3-0.8 [facility] Comment on above: Performed By: #### C BC #### [facility] [address] [place] [address] Dr. Carolyn King Monocytes/100 WBC (Bld) 10.7 % Normal 1.7-12.0 [facility] Comment on above: Performed By: #### C BC #### [facility] [address] [place] [address] Dr. Carolyn King NEUT # 4.4 103/ul Normal 1.4-6.5 [facility] Comment on above: Performed By: #### C BC #### [facility] [address] [address] [address] Carolyn King Neutrophils/100 WBC (Bld) 71.1 % Normal 43.0-75.0 [facility] Comment on above: Performed By: #### C BC #### [facility] [address] [address] [address] Carolyn King Platelet mean volume (Bld) [Entitic vol] 10.2 fL Normal 9.5-13.5 [facility] Comment on above: Performed By: #### C BC #### [facility] [address] [place] [address] Dr. Carolyn King PLT 242 103/ul Normal 150-450 [facility] Comment on above: Performed By: #### C BC #### [facility] [address] [place] [address] Dr. Carolyn King RBC 4.82 106/ul Normal 4.70-6.10 [facility] Comment on above: Performed By: #### C BC #### [facility] [address] [place] [address] Dr. Carolyn King WBC 6.2 103/ul Normal 4.0-11.0 [facility] Comment on above: Performed By: #### C BC #### [facility] [address] [place] [address] Dr. Carolyn King FREE THYROXINE INDEX T7on FTI 2.55 Normal 1.30-4.50 [facility] Comment on above: Performed By: #### U ALLEN, TSH, T7, LIPID, CMP #### [facility] [address] [address] [address] Carolyn King T3U 30.0 % Critically low 33.0-40.0 [facility] Comment on above: Performed By: #### U ALLEN, TSH, T7, LIPID, CMP #### [facility] [address] [address] [address] Carolyn King T4 [Mass/Vol] 8.50 ug/dL Normal 4.50-12.10 [facility] Comment on above: Performed By: #### U ALLEN, TSH, T7, LIPID, CMP #### [facility] [address] [address] [address] Carolyn King GLYCOHEMOGLOBIN A1Con 2021 ADA RECOMMENDATION SEE BELOW Normal [place] [facility] Comment on above: Result Comment: ADA RECOMMENDED LIMIT 4.0 - 6.0 ADA THERAPEUTIC TARGET < 7.0 ACTION SUGGESTED > 7.0 Performed By: #### A 1C #### [facility] [address] [address] [address] Carolyn King Glucose [Mass/Vol] 103 mg/dL Normal 74-106 [facility] Comment on above: Performed By: #### A 1C #### [facility] [address] [address] [address] Carolyn King Performed By: #### U ALLEN, TSH, T7, LIPID, CMP #### [facility] [address] [address] [address] Carolyn King HbA1c (Bld) [Mass fraction] 5.2 % Normal 4.5-6.2 [facility] Comment on above: Performed By: #### A 1C #### [facility] [address] [address] [address] Carolyn King LIPID PROFILEon 03-28-2022 CHOL-HDL RATIO NORM SEE BELOW Normal [facility] Comment on above: Result Comment: 3.3 - 4.4 LOW RISK 4.4 - 7.1 AVERAGE RISK 7.1 - 11.0 MODERATE RISK >11.0 HIGH RISK Performed By: #### U ALLEN, TSH, T7, LIPID, CMP #### [facility] [address] [address] [address] Carolyn King Cholesterol [Mass/Vol] 157 mg/dL Normal <=200 [facility] Comment on above: Performed By: #### U ALLEN, TSH, T7, LIPID, CMP #### [facility] [address] [address] [address] Carolyn King Cholesterol in HDL [Mass/Vol] 49 mg/dL Normal 40-60 [facility] Comment on above: Performed By: #### U ALLEN, TSH, T7, LIPID, CMP #### [facility] [address] [address] [address] Carolyn King Cholesterol in LDL [Mass/Vol] 85.6 mg/dL Normal [facility] Comment on above: Performed By: #### U ALLEN, TSH, T7, LIPID, CMP #### [facility] [address] [address] [address] Carolyn King Cholesterol.total/Chol esterol in HDL [Mass ratio] 3.2 {ratio} Normal [facility] Comment on above: Performed By: #### U ALLEN, TSH, T7, LIPID, CMP #### [facility] [address] [address] [address] Carolyn King HDL NORMAL > or = 60 mg/dl - LO W CARDIOVASCULAR RISK <40 mg/dl - HIGH CARDIOVASCULAR RISK Normal [facility] Comment on above: Performed By: #### U ALLEN, TSH, T7, LIPID, CMP #### [facility] [address] [address] [address] Carolyn King LDL CALC NORMAL SEE BELOW Normal [facility] Comment on above: Result Comment: <100 mg/dl OPTIMAL 100 - 129 mg/dl NEAR OR ABOVE OPTIMAL 130 - 159 mg/dl BORDERLINE HIGH 160 - 189 mg/dl HIGH >190 mg/dl VERY HIGH Performed By: #### U ALLEN, TSH, T7, LIPID, CMP #### [facility] [address] [address] [address] Carolyn King Triglyceride [Mass/Vol] 112 mg/dL Normal <=150 [facility] Comment on above: Performed By: #### U ALLEN, TSH, T7, LIPID, CMP #### [facility] [address] [address] [address] Carolyn King VLDL CALC 22.4 mg/dL Normal [facility] Comment on above: Performed By: #### U ALLEN, TSH, T7, LIPID, CMP #### [facility] [address] [address] [address] Carolyn King PROF 14(COMP METB)on 022 Albumin [Mass/Vol] 3.9 g/dL Normal 3.4-5.0 [facility] Comment on above: Performed By: #### U ALLEN, TSH, T7, LIPID, CMP #### [facility] [address] [place] [address] Dr. Carolyn King Albumin/Globulin [Mass ratio] 1.1 {ratio} Normal [facility] Comment on above: Performed By: #### U ALLEN, TSH, T7, LIPID, CMP #### [facility] [address] [place] [address] Dr. Carolyn King ALP [Catalytic activity/Vol] 108 U/L Normal 46-116 [facility] Comment on above: Performed By: #### U ALLEN, TSH, T7, LIPID, CMP #### [facility] [address] [place] [address] Dr. Carolyn King ALT [Catalytic activity/Vol] 28 U/L Normal 16-63 [facility] Comment on above: Performed By: #### U ALLEN, TSH, T7, LIPID, CMP #### [facility] [address] [place] [address] Dr. Carolyn King Anion gap [Moles/Vol] 6.6 mmol/L Normal [facility] Comment on above: Performed By: #### U ALLEN, TSH, T7, LIPID, CMP #### [facility] [address] [place] [address] Dr. Carolyn King AST [Catalytic activity/Vol] 22 U/L Normal 15-37 [facility] Comment on above: Performed By: #### U ALLEN, TSH, T7, LIPID, CMP #### [facility] [address] [place] [address] Dr. Carolyn King Bilirubin [Mass/Vol] 0.6 mg/dL Normal 0.2-1.0 [facility] Comment on above: Performed By: #### U ALLEN, TSH, T7, LIPID, CMP #### [facility] [address] [place] [address] Dr. Carolyn King Calcium [Mass/Vol] 8.7 mg/dL Normal 8.5-10.1 [facility] Comment on above: Performed By: #### U ALLEN, TSH, T7, LIPID, CMP #### [facility] [address] [address] [address] Carolyn King Chloride [Moles/Vol] 105 mmol/L Normal 98-107 [facility] Comment on above: Performed By: #### U ALLEN, TSH, T7, LIPID, CMP #### [facility] [address] [address] [address] Carolyn King CO2 [Moles/Vol] 30.6 mmol/L Normal 21.0-32.0 [facility] Comment on above: Performed By: #### U ALLEN, TSH, T7, LIPID, CMP #### [facility] [address] [place] [address] Dr. Carolyn King Creatinine [Mass/Vol] 0.96 mg/dL Normal 0.70-1.30 [facility] Comment on above: Performed By: #### U ALLEN, TSH, T7, LIPID, CMP #### [facility] [address] [place] [address] Dr. Carolyn King EGFR-AF NIUEAN >60 Normal >=60 [facility] Comment on above: Performed By: #### U ALLEN, TSH, T7, LIPID, CMP #### [facility] [address] [place] [address] Dr. Carolyn King EGFR-NON AF NIUEAN >60 Normal >=60 [facility] Comment on above: Performed By: #### U ALLEN, TSH, T7, LIPID, CMP #### [facility] [address] [place] [address] Dr. Carolyn King Globulin (S) [Mass/Vol] 3.5 g/dL Normal [facility] Comment on above: Performed By: #### U ALLEN, TSH, T7, LIPID, CMP #### [facility] [address] [place] [address] Dr. Carolyn King Potassium [Moles/Vol] 4.2 mmol/L Normal 3.5-5.1 [facility] Comment on above: Performed By: #### U ALLEN, TSH, T7, LIPID, CMP #### [facility] [address] [address] [address] Carolyn King Protein [Mass/Vol] 7.4 g/dL Normal 6.4-8.2 [facility] Comment on above: Performed By: #### U ALLEN, TSH, T7, LIPID, CMP #### [facility] [address] [address] [address] Carolyn King Sodium [Moles/Vol] 138 mmol/L Normal 136-145 [facility] Comment on above: Performed By: #### U ALLEN, TSH, T7, LIPID, CMP #### [facility] [address] [address] [address] Carolyn King Urea nitrogen [Mass/Vol] 16.0 mg/dL Normal 7.0-18.0 [facility] Comment on above: Performed By: #### U ALLEN, TSH, T7, LIPID, CMP #### [facility] [address] [place] [address] Dr. Carolyn King Urea nitrogen/Creatinine [Mass ratio] 16.7 mg/mg Normal [facility] Comment on above: Performed By: #### U ALLEN, TSH, T7, LIPID, CMP #### [facility] [address] [address] [address] Carolyn King TSHon 03-28-2022 TSH 1.986 uIU/mL Normal 0.358-3.74 0 [facility] Comment on above: Performed By: #### U ALLEN, TSH, T7, LIPID, CMP #### [facility] [address] [address] [address] Carolyn King URIC ACID SERUMon 03-28-2022 Urate [Mass/Vol] 5.5 mg/dL Normal 3.5-7.2 [facility] Comment on above: Performed By: #### U ALLEN, TSH, T7, LIPID, CMP #### [facility] [address] [place] [address] Dr. Carolyn King Ammonium urate crystals dete ction in stone by infrared spectroscopyOrdered By: Shun Machado on 02-15-2022 Ammonium urate crystals Infrared spectroscopy Ql (Stone) N/A [facility] Basophils Auto (Bld) [#/Vol] Ordered By: Steve Pina on 02-15-2022 Basophils (Bld) [#/Vol] 0.0 10*3/uL 0.0-0.2 [facility] Basophils/100 WBC Auto (Bld) Ordered By: Steve Pina on 02-15-2022 Basophils/100 WBC (Bld) 0.9 % . [facility] Blood hemoglobin measurement (mass/volume)Ordered By: Steve Pina on 02-15-2022 Hemoglobin (Bld) [Mass/Vol] 14.2 g/dL 13.0-17.0 [facility] Blood leukocytes automated c ount (number/volume)Ordered By: Steve Pina on 02-15-2022 WBC (Bld) [#/Vol] 4.5 10*3/uL 4.5-11.0 [facility] Calcium bilirubinate measure mentOrdered By: Shun Machado on 02-15-2022 Calcium bilirubinate (Stone) [Mass fraction] N/A [facility] Calcium carbonate measuremen tOrdered By: Shun Machado on 02-15-2022 Calcium carbonate (Stone) [Mass fraction] N/A [facility] Calcium hydrogen phosphate d ihydrate/Total in StoneOrdered By: Shun Machado on 02-15-2022 Calcium hydrogen phosphate dihydrate (Stone) [Mass fraction] N/A [facility] Calcium oxalate dihydrate cr ystals detection in stone by infrared spectroscopyOrdered By: Shun Machado on 02-15-2022 Calcium oxalate dihydrate crystals Infrared spectroscopy Ql (Stone) 10 % . [facility] Calcium oxalate monohydrate/ Total in StoneOrdered By: Shun Machado on 02-15-2022 Calcium oxalate monohydrate (Stone) [Mass fraction] 90 % . [facility] Calcium phosphate measuremen tOrdered By: Shun Machado on 02-15-2022 Calcium phosphate (Stone) [Mass fraction] N/A [facility] Calculus analysis interpreta tion in stoneOrdered By: Shun Machado on 02-15-2022 Calculus analysis [Interp] N/A [facility] Calculus analysis [Interp] See comment . [facility] Comment on above: Physician questions regarding Calculi Analysis contact [facility] at: [phone]. Calculi report will follow via computer, mail or fan engine engineer delivery. Calculus analysis with calcu iggy photography interpretation in stoneOrdered By: Shun Machado on 02-15-2022 Calculus analysis with calculus photography [Interp] See comment . [facility] Comment on above: Photograph will foll ow under a separate cover Cellular material measuremen t in stone by estimated (mass/mass)Ordered By: Shun Machado on 02-15-2022 Cellular material Est (Stone) [Mass/Mass] N/A [facility] Cholesterol/Total in StoneOr dered By: Shun Machado on 02-15-2022 Cholesterol (Stone) [Mass fraction] N/A [facility] Composition of stoneOrdered By: Shun Machado on 02-15-2022 Composition Nom (Stone) See comment . [facility] Comment on above: Percentage (Represen ts the % composition) Creatinine and Glomerular fi ltration rate.predicted panel (S/P/Bld)Ordered By: Steve Pina on 02-15-2022 Creatinine [Mass/Vol] 0.96 mg/dL 0.64-1.27 [facility] Cystine measurementOrdered B y: Shun Machado on 02-15-2022 Cystine (Unsp spec) [Moles/Vol] N/A [facility] Determination of color of ca lculusOrdered By: Shun Machado on 02-15-2022 Color (Stone) Brown . [facility] Eosinophils Auto (Bld) [#/Vo l]Ordered By: Steve Pina on 02-15-2022 Eosinophils (Bld) [#/Vol] 0.1 10*3/uL 0.0-0.45 [facility] Eosinophils/100 WBC Auto (Bl d)Ordered By: Steve Pina on 02-15-2022 Eosinophils/100 WBC (Bld) 2.7 % . [facility] Erythrocyte distribution wid th Auto (RBC) [Ratio]Ordered By: Steve Pina on 02-15-2022 Erythrocyte distribution width (RBC) [Ratio] 14.0 % 12.0-14.8 [facility] Estimated glomerular filtrat ion rate (GFR) non- AmericanOrdered By: Steve Pina on 02-15-2022 GFR/1.73 sq M.predicted among non-blacks MDRD (S/P/Bld) [Vol rate/Area] > 60 mL/Min [facility] Hematocrit Auto (Bld) [Volum e fraction]Ordered By: Steve Pina on 02-15-2022 Hematocrit (Bld) [Volume fraction] 42.2 % 38.8-50.0 [facility] Hydroxyapatite [Energy Diffe rence] in 24 hour UrineOrdered By: Shun Machado on 02-15-2022 Hydroxyapatite (24H U) [Energy diff] N/A [facility] - Hematology and Cell countsOrdered By: Steve Pina on 02-15-2022 Nucleated RBC/100 WBC (Bld) [Ratio] 0.0 % 0-0.5 [facility] Lymphocytes Auto (Bld) [#/Vo l]Ordered By: Steve Pina on 02-15-2022 Lymphocytes (Bld) [#/Vol] 1.0 10*3/uL 1.00-4.8 [facility] Lymphocytes/100 WBC Auto (Bl d)Ordered By: Steve Pina on 02-15-2022 Lymphocytes/100 WBC (Bld) 21.3 % . [facility] MCH Auto (RBC) [Entitic mass ]Ordered By: Steve Pina on 02-15-2022 MCH (RBC) [Entitic mass] 31.0 pg 27.5-35.2 [facility] MCHC Auto (RBC) [Mass/Vol]Or dered By: Steve Pina on 02-15-2022 MCHC (RBC) [Mass/Vol] 33.7 g/dL 32.5-35.6 [facility] MCV Auto (RBC) [Entitic vol] Ordered By: Steve Pina on 02-15-2022 MCV (RBC) [Entitic vol] 92.1 fL 83.5-101 [facility] Measurement of proportion of calculus composed of dried blood (mass/mass)Ordered By: Shun Machado on 02-15-2022 Blood.dried (Stone) [Mass fraction] N/A [facility] Monocytes Auto (Bld) [#/Vol] Ordered By: Steve Pina on 02-15-2022 Monocytes (Bld) [#/Vol] 0.5 10*3/uL 0.0-0.8 [facility] Monocytes/100 WBC Auto (Bld) Ordered By: Steve Pina on 02-15-2022 Monocytes/100 WBC (Bld) 10.1 % . [facility] Neutrophils Auto (Bld) [#/Vo l]Ordered By: Steve Pina on 02-15-2022 Neutrophils (Bld) [#/Vol] 3.0 10*3/uL 1.8-7.7 [facility] Neutrophils/100 WBC Auto (Bl d)Ordered By: Steve Pina on 02-15-2022 Neutrophils/100 WBC (Bld) 65.0 % . [facility] Newberyite/Total in StoneOrd ered By: Shun Machado on 02-15-2022 Newberyite (Stone) [Mass fraction] N/A [facility] No Panel InformationOrdered By: Shun Machado on 02-15-2022 Stone 2,8 Dihydroxyadenine N/A [facility] Stone Analysis Disclaimer See comment . [facility] Comment on above: This test was develo ped and its performance characteristics determined by [employer]. It has not been cleared or approved by the Food and Drug Administration. Performed at: [facility] [address] [place] [address] Dr Arndt, [place], [place] [id number] Personal Financial Planner: Riley Parikh PhD, Phone: [phone] Stone Bilirubinate N/A [facility] Stone Calcium Palmitate N/A [facility] Stone Calcium Stearate N/A [facility] Stone Carbonate Apatite N/A [facility] Stone Drug or Metabolite N/A [facility] Stone Other Constituent N/A [facility] Stone Xanthine N/A [facility] No Panel InformationOrdered By: Steve Pina on 02-15-2022 Estimated GFR () > 60 mL/Min [facility] Comment on above: GFR estimated refere nce range: According to KDOQI guidelines, <60 ml/min/1.73m2 is sufficient to diagnose a patient with chronic kidney disease. Pharmacy Creatinine Clearance (Chem 93.62 [facility] Platelet mean volume Auto (B ld) [Entitic vol]Ordered By: Steve Pina on 02-15-2022 Platelet mean volume (Bld) [Entitic vol] 7.9 fL 6.6-10.1 [facility] Platelets Auto (Bld) [#/Vol] Ordered By: Steve Pina on 02-15-2022 Platelets (Bld) [#/Vol] 202 10*3/uL 150-450 [facility] RBC Auto (Bld) [#/Vol]Ordere d By: Steve Pina on 02-15-2022 RBC (Bld) [#/Vol] 4.58 10*6/uL 3.90-5.60 [facility] Serum or plasma calcium karl urement (mass/volume)Ordered By: Steve Pina on 02-15-2022 Calcium [Mass/Vol] 9.0 mg/dL 8.2-10.2 [facility] Serum or plasma chloride reba surement (moles/volume)Ordered By: Steve Pina on 02-15-2022 Chloride [Moles/Vol] 102 mmol/L 95-114 [facility] Serum or plasma glucose karl urement (mass/volume)Ordered By: Steve Pina on 02-15-2022 Glucose [Mass/Vol] 108 mg/dL 70-100 [facility] Comment on above: ADA recommended refe rence range Random Glucose Reference Range is dependent on time and content of last meal. Glucose of more than 200 mg/dL in a nonstressed, ambulatory subject supports the diagnosis of Diabetes Mellitus. Serum or plasma potassium me asurement (moles/volume)Ordered By: Steve Pina on 02-15-2022 Potassium [Moles/Vol] 3.9 mmol/L 3.5-5.1 [facility] Serum or plasma sodium measu rement (moles/volume)Ordered By: Steve Pina on 02-15-2022 Sodium [Moles/Vol] 137 mmol/L 136-146 [facility] Serum or plasma total carbon dioxide measurement (moles/volume)Ordered By: Steve Pina on 02-15-2022 CO2 [Moles/Vol] 28.0 mmol/L 22.0-30.0 [facility] Serum or plasma urea nitroge n measurement (mass/volume)Ordered By: Steve Pina on 02-15-2022 Urea nitrogen [Mass/Vol] 11 mg/dL 03-16 [facility] Size [Entitic volume] of Sto neOrdered By: Shun Machado on 02-15-2022 Size (Stone) [Entitic vol] 5x3 mm . [facility] Comment on above: Multiple pieces rece ived. Dimensions of the largest piece reported. Sodium urate crystals detect ion in stone by infrared spectroscopyOrdered By: Shun Machado on 02-15-2022 Sodium urate crystals Infrared spectroscopy Ql (Stone) N/A [facility] Specimen source subject [Typ e]Ordered By: Shun Machado on 02-15-2022 Specimen source subject Nom See comment . [facility] Comment on above: Right Ureter Triamterene measurement in c alculusOrdered By: Shun Machado on 02-15-2022 Triamterene (Stone) [Mass fraction] N/A [facility] Triple phosphate/Total in St oneOrdered By: Shun Machado on 02-15-2022 Triple phosphate (Stone) [Mass fraction] N/A [facility] Uric acid dihydrate crystals detection in stone by infrared spectroscopyOrdered By: Shun Machado on 02-15-2022 Urate dihydrate crystals Infrared spectroscopy Ql (Stone) N/A [facility] XR ANKLE RT MIN 3 VIEWSon [...] LAURY ZEPEDA Date: 2022-02-15 06:59 Normal [facility] COVID-19 Positive/NegativeOr dered By: Shun Machado on 02-13-2022 SARS-CoV-2 (COVID-19) N gene LU+probe Ql (Resp) Negative Negative [facility] Comment on above: Testing for SARS-CoV -2 by RT-PCR This test was developed and its performance characteristics determined by [employer] and validated at the [facility]. This test has not been FDA [...] claudication. COMPARISON: November 08, 2021 ACCESSION NUMBER(S): [id number] ORDERING CLINICIAN: KENTON LAWSON FINDINGS: Status post anterior and posterior fusion L3-L5 unchanged prior examination with disc space replacement and posterior pedicle screws. Alignment normal. Upper lumbar degenerative changes greatest at L2-3 again noted. IMPRESSION: Satisfactory and unchanged appearance status post L3-L5 fusion. Electronically signed by: JENI SNYDER MD Normal [facility] Established Visit (Orthopaed ic Surgery)on 01-29-2022 Established Visit (Orthopaedic Surgery) Diagnoses/Problems Assessed Lumbar stenosis with neurogenic claudication (724.03) (M48.062) Orders Lumbar stenosis with neurogenic claudication Xray BN Spine, Lumbosacral; 2 or 3 Views; Status:Resulted - Preliminary; Done: [id number] 10:34AM Radiologist to Determine Optimal Study : [...] Xray BN Spine, Lumbosacral; 2 or 3 [id number] 10:34AMSKenton fernández Test NameResultFlagReference Xray Lumbar Spine [...] by: BANDAR SAENZ Date: 2022-01-29 21:07 Normal [facility] Activated partial thrombopla stin time (aPTT) in platelet poor plasma by coagulation aOrdered By: Shun Machado on 01-17-2022 aPTT Coag (PPP) [Time] 36.3 s 25.1-36.5 [facility] COVID-19 Positive/NegativeOr dered By: Shun Machado on 01-17-2022 SARS-CoV-2 (COVID-19) N gene LU+probe Ql (Resp) Negative Negative [facility] Comment on above: Testing for SARS-CoV -2 by RT-PCR This test was developed and its performance characteristics determined by [employer] and validated at the [facility]. This test has not been FDA [...] PT Coag (PPP) [Time] 11.9 s 9.0-12.9 [facility] Platelet poor plasma interna tional normalized ratio (INR) by coagulation assay (relatOrdered By: Shun Machado on 01-17-2022 INR Coag (PPP) [Relative time] 1.1 {INR} [facility] Comment on above: INR Therapeutic Rang [...] BANDAR SAENZ Date: 2022-01-11 16:29 Normal [facility] CBC AUTO DIFFon 01-09-2022 BASO # 0.0 103/ul Normal 0.0-0.1 [facility] Comment on above: Performed By: #### C BC #### [facility] [address] [place] [address] Dr. Carolyn King Basophils/100 WBC (Bld) 0.4 % Normal 0.2-2.0 [facility] Comment on above: Performed By: #### C BC #### [facility] [address] [place] [address] Dr. Carolyn King EO # 0.0 103/ul Normal 0.0-0.7 [facility] Comment on above: Performed By: #### C BC #### [facility] [address] [place] [address] Dr. Carolyn King Eosinophils/100 WBC (Bld) 0.3 % Critically low 0.9-7.0 [facility] Comment on above: Performed By: #### C BC #### [facility] [address] [place] [address] Dr. Carolyn King Erythrocyte distribution width (RBC) [Ratio] 12.6 % Normal 11.0-15.0 [facility] Comment on above: Performed By: #### C BC #### [facility] [address] [place] [address] Dr. Carolyn King Hematocrit (Bld) [Volume fraction] 45.6 % Normal 42.0-54.0 [facility] Comment on above: Performed By: #### C BC #### [facility] [address] [place] [address] Dr. Carolyn King Hemoglobin (Bld) [Mass/Vol] 15.6 g/dL Normal 14.0-18.0 [facility] Comment on above: Performed By: #### C BC #### [facility] [address] [place] [address] Dr. Carolyn King IG # 0.02 10e3/ul Normal 0.00-0.03 [facility] Comment on above: Performed By: #### C BC #### [facility] [address] [place] [address] Dr. Carolyn King IG % 0.3 % Normal 0.0-0.5 [facility] Comment on above: Performed By: #### C BC #### [facility] [address] [place] [address] Dr. Carolyn King LYMPH # 0.8 103/ul Critically low 1.2-3.8 [facility] Comment on above: Performed By: #### C BC #### [facility] [address] [place] [address] Dr. Carolyn King Lymphocytes/100 WBC (Bld) 11.4 % Critically low 20.5-60.0 [facility] Comment on above: Performed By: #### C BC #### [facility] [address] [place] [address] Dr. Carolyn King MANUAL DIFF REQ NO Normal [facility] Comment on above: Performed By: #### C BC #### [facility] [address] [place] [address] Dr. Carolyn King MCH (RBC) [Entitic mass] 30.8 pg Normal 25.9-34.0 [facility] Comment on above: Performed By: #### C BC #### [facility] [address] [place] [address] Dr. Carolyn King MCHC (RBC) [Mass/Vol] 34.2 g/dL Normal 29.9-35.2 [facility] Comment on above: Performed By: #### C BC #### [facility] [address] [place] [address] Dr. Carolyn King MCV (RBC) [Entitic vol] 89.9 fL Normal 80.0-94.0 [facility] Comment on above: Performed By: #### C BC #### [facility] [address] [place] [address] Dr. Carolyn King MONO # 0.6 103/ul Normal 0.3-0.8 [facility] Comment on above: Performed By: #### C BC #### [facility] [address] [place] [address] Dr. Carolyn King Monocytes/100 WBC (Bld) 8.5 % Normal 1.7-12.0 [facility] Comment on above: Performed By: #### C BC #### [facility] [address] [place] [address] Dr. Carolyn King NEUT # 5.8 103/ul Normal 1.4-6.5 [facility] Comment on above: Performed By: #### C BC #### [facility] [address] [place] [address] Dr. Carolyn King Neutrophils/100 WBC (Bld) 79.1 % Critically high 43.0-75.0 [facility] Comment on above: Performed By: #### C BC #### [facility] [address] [place] [address] Dr. Carolyn King Platelet mean volume (Bld) [Entitic vol] 10.7 fL Normal 9.5-13.5 [facility] Comment on above: Performed By: #### C BC #### [facility] [address] [place] [address] Dr. Carolyn King PLT 235 103/ul Normal 150-450 [facility] Comment on above: Performed By: #### C BC #### [facility] [address] [place] [address] Dr. Carolyn King RBC 5.07 106/ul Normal 4.70-6.10 [facility] Comment on above: Performed By: #### C BC #### [facility] [address] [place], [place] [id number] Dr. Carolyn King WBC 7.4 103/ul Normal 4.0-11.0 [facility] Comment on above: Performed By: #### C BC #### [facility] [address] [place] [address] ABD/PELVIS WO CONon [...] without appreciable acute abnormality. Electronically authenticated by: LAUYR ZEPEDA Date: 2022-01-09 13:38 Normal [facility] URINE PROFILEon 2 Bilirubin Ql (U) Negative Normal NEGATIVE [facility] Comment on above: Performed By: #### I NSULIN #### [facility] [address] [place] [address] Dr. Carolyn King Clarity (U) CLEAR Normal CLEAR [facility] Comment on above: Performed By: #### I NSULIN #### [facility] [address] [place] [address] Dr. Carolyn King Color (U) LT. YELLOW Normal YELLOW [facility] Comment on above: Performed By: #### I NSULIN #### [facility] [address] [place] [address] Dr. Carolyn BUNN A micrscopic examina tion will be performed if indicated. Normal [facility] Comment on above: Performed By: #### I NSULIN #### [facility] [address] [place] [address] Dr. Carolyn King Glucose Ql (U) Negative Normal NEGATIVE [facility] Comment on above: Performed By: #### I NSULIN #### [facility] [address] [place] [address] Dr. Carolyn King Hemoglobin Ql (U) MODERATE Abnormal NEGATIVE [facility] Comment on above: Performed By: #### I NSULIN #### [facility] [address] [place] [address] Dr. Carolyn King Ketones Ql (U) Negative Normal NEGATIVE [facility] Comment on above: Performed By: #### I NSULIN #### [facility] [address] [place] [address] Dr. Carolyn King LEUKOCYTES Negative Normal NEGATIVE [facility] Comment on above: Performed By: #### I NSULIN #### [facility] [address] [place] [address] Dr. Carolyn King Nitrite Ql (U) Negative Normal NEGATIVE [facility] Comment on above: Performed By: #### I NSULIN #### [facility] [address] [place] [address] Dr. Carolyn King pH (U) 6.0 [pH] Normal 5-9 [facility] Comment on above: Performed By: #### I NSULIN #### [facility] [address] [place] [address] Dr. Carolyn King SPEC GRAVITY 1.010 Normal 1.005-<=1. 025 [facility] Comment on above: Performed By: #### I NSULIN #### [facility] [address] [place] [address] Dr. Carolyn King UA PROTEIN Negative Normal NEGATIVE/ TRACE [facility] Comment on above: Performed By: #### I NSULIN #### [facility] [address] [place] [address] Dr. Carolyn King UR MICRO IND INDICATED Normal [facility] Comment on above: Performed By: #### I NSULIN #### [facility] [address] [place] [address] Dr. Carolyn King Urobilinogen Qn (U) 0.2 {Keren'U}/dL Normal 0.2 - 1. 0 [facility] Comment on above: Performed By: #### I NSULIN #### [facility] [address] [place] [address] Dr. Carolyn King LIPASEon 01-09-2022 Lipase [Catalytic activity/Vol] 98.0 U/L Normal 73.0-393.0 [facility] Comment on above: Performed By: #### I NSULIN #### [facility] [address] [place] [address] Dr. Carolyn King PROF 14(COMP METB)on 022 Albumin [Mass/Vol] 4.0 g/dL Normal 3.4-5.0 [facility] Comment on above: Performed By: #### I NSULIN #### [facility] [address] [place] [address] Dr. Carolyn King Albumin/Globulin [Mass ratio] 1.1 {ratio} Normal [facility] Comment on above: Performed By: #### I NSULIN #### [facility] [address] [place] [address] Dr. Carolyn King ALP [Catalytic activity/Vol] 112 U/L Normal 46-116 [facility] Comment on above: Performed By: #### I NSULIN #### [facility] [address] [place] [address] Dr. Carolyn King ALT [Catalytic activity/Vol] 27 U/L Normal 16-63 [facility] Comment on above: Performed By: #### I NSULIN #### [facility] [address] [place] [address] Dr. Carolyn King Anion gap [Moles/Vol] 14.9 mmol/L Normal [facility] Comment on above: Performed By: #### I NSULIN #### [facility] [address] [place] [address] Dr. Carolyn King AST [Catalytic activity/Vol] 22 U/L Normal 15-37 [facility] Comment on above: Performed By: #### I NSULIN #### [facility] [address] [place] [address] Dr. Carolyn King Bilirubin [Mass/Vol] 0.5 mg/dL Normal 0.2-1.0 [facility] Comment on above: Performed By: #### I NSULIN #### [facility] [address] [address] [address] Carolyn King Calcium [Mass/Vol] 9.1 mg/dL Normal 8.5-10.1 [facility] Comment on above: Performed By: #### I NSULIN #### [facility] [address] [address] [address] Carolyn King Chloride [Moles/Vol] 103 mmol/L Normal 98-107 [facility] Comment on above: Performed By: #### I NSULIN #### [facility] [address] [place] [address] Dr. Carolyn King CO2 [Moles/Vol] 26.0 mmol/L Normal 21.0-32.0 [facility] Comment on above: Performed By: #### I NSULIN #### [facility] [address] [place] [address] Dr. Carolyn King Creatinine [Mass/Vol] 1.09 mg/dL Normal 0.70-1.30 [facility] Comment on above: Performed By: #### I NSULIN #### [facility] [address] [place] [address] Dr. Carolyn King EGFR-AF NIUEAN >60 Normal >=60 [facility] Comment on above: Performed By: #### I NSULIN #### [facility] [address] [address] [address] Carolyn King EGFR-NON AF NIUEAN >60 Normal >=60 [facility] Comment on above: Performed By: #### I NSULIN #### [facility] [address] [address] [address] Carolyn King Globulin (S) [Mass/Vol] 3.8 g/dL Normal [facility] Comment on above: Performed By: #### I NSULIN #### [facility] [address] [place] [address] Dr. Carolyn King Glucose [Mass/Vol] 97 mg/dL Normal 74-106 [facility] Comment on above: Performed By: #### I NSULIN #### [facility] [address] [address] [address] Carolyn King Potassium [Moles/Vol] 3.9 mmol/L Normal 3.5-5.1 [facility] Comment on above: Performed By: #### I NSULIN #### [facility] [address] [address] [address] Carolyn King Protein [Mass/Vol] 7.8 g/dL Normal 6.4-8.2 [facility] Comment on above: Performed By: #### I NSULIN #### [facility] [address] [place] [address] Dr. Carolyn King Sodium [Moles/Vol] 140 mmol/L Normal 136-145 [facility] Comment on above: Performed By: #### I NSULIN #### [facility] [address] [place] [address] Dr. Carolyn King Urea nitrogen [Mass/Vol] 16.0 mg/dL Normal 7.0-18.0 [facility] Comment on above: Performed By: #### I NSULIN #### [facility] [address] [place] [address] Dr. Carolyn King Urea nitrogen/Creatinine [Mass ratio] 14.7 mg/mg Normal [facility] Comment on above: Performed By: #### I NSULIN #### [facility] [address] [place] [address] Dr. Carolyn King URINE MICROSCOPIC ONLYon BACTERIA NONE SEEN Normal NONE SEEN [facility] Comment on above: Performed By: #### I NSULIN #### [facility] [address] [place] [address] Dr. Carolyn King Bacteria identified Cx Nom (U) NOT INDICATED Normal [facility] Comment on above: Performed By: #### I NSULIN #### [facility] [address] [place] [address] Dr. Carolyn King CAST NONE SEEN Normal NONE SEEN [facility] Comment on above: Performed By: #### I NSULIN #### [facility] [address] [place] [address] Dr. Carolyn King Crystals LM Nom (Urine sed) NONE SEEN Normal NONE SEEN [facility] Comment on above: Performed By: #### I NSULIN #### [facility] [address] [place] [address] Dr. Carolyn King Epithelial cells LM Ql (Urine sed) NONE SEEN Normal NONE SEEN /RARE [facility] Comment on above: Performed By: #### I NSULIN #### [facility] [address] [place] [address] Dr. Carolyn King MUCOUS NONE SEEN Normal NONE SEEN [facility] Comment on above: Performed By: #### I NSULIN #### [facility] [address] [place] [address] Dr. Carolyn King RBC 2-5 Abnormal 0-2 [facility] Comment on above: Performed By: #### I NSULIN #### [facility] [address] [place] [address] Dr. Carolyn King WBC 0-2 Abnormal NONE SEEN [facility] Comment on above: Performed By: #### I NSULIN #### [facility] [address] [place] [address] Dr. Carolyn King US SINGLE QUAD RT [...] by: BANDAR QUEZADA Date: 2022-01-05 10:15 Normal [facility] [place] HEPATOBILIARY SCAN W EFon 12-27-2021 [place] HEPATOBILIARY SCAN W EF HISTORY: Right upper [...] by: LAURY SNYDER Date: 2021-12-27 12:16 Normal [facility] CT ABD/PELV W CONon 12-12-19 CT ABD/PELV [...] Cholelithiasis. 4. Bilateral nephrolithiasis. Electronically authenticated by: LAUYR ZEPEDA Date: 2021-12-11 07:30 Normal [facility] CREATININEon 12-09-2021 Creatinine [Mass/Vol] 0.98 mg/dL Normal 0.70-1.30 [facility] Comment on above: Performed By: #### I NSULIN #### [facility] [address] [address] [address] Carolyn King EGFR-AF NIUEAN >60 Normal >=60 [facility] Comment on above: Performed By: #### I NSULIN #### [facility] [address] [address] [address] Carolyn King EGFR-NON AF NIUEAN >60 Normal >=60 [facility] Comment on above: Performed By: #### I NSULIN #### [facility] [address] [address] [address] Carolyn King BN SPINE, LUMBOSACRAL; 2 OR 3 VIEWSon 11-08-2021 BN SPINE, LUMBOSACRAL; 2 OR 3 VIEWS Patient Name: JAY CARR STUDY: Lumbar spine dated 11/08/2021. INDICATION: AP/LAT M54.50: Lumbar back pain M48.062: Lumbar stenosis with neurogenic claudication COMPARISON: None. ACCESSION NUMBER(S): [id number] ORDERING CLINICIAN: KENTON LAWSON TECHNIQUE: AP and [...] above. Electronically signed by: BATSHEVA VIDAL MD [facility] Post Op (Orthopaedic Surgery )on [...] Work Phone: CBCon 09-29-[address] [facility] Comment on above: Order Comment: TEST CBC WAS CANCELLED, 09/29/2021 08:10 NO SPECIMEN RECEIVED IN LAB. Performed By: #### C BC ####[id number] [place] [address] [facility] Comment on above: Order Comment: TEST CBC WAS CANCELLED, 09/29/2021 08:10 NO SPECIMEN RECEIVED IN LAB. Performed By: #### C BC ####[id number] [place] [address] [facility] Comment on above: Order Comment: TEST CBC WAS CANCELLED, 09/29/2021 08:10 NO SPECIMEN RECEIVED IN LAB. Performed By: #### C BC ####[id number] [place] [address] [facility] Comment on above: Order Comment: TEST CBC WAS CANCELLED, 09/29/2021 08:10 NO SPECIMEN RECEIVED IN LAB. Performed By: #### C BC ####[id number] [place] [address] NUCLEATED RBC Canceled Normal [facility] Comment on above: Order Comment: TEST CBC WAS CANCELLED, 09/29/2021 08:10 NO SPECIMEN RECEIVED IN LAB. Performed By: #### C BC ####[id number] [place] [address] [facility] Comment on above: Order Comment: TEST CBC WAS CANCELLED, 09/29/2021 08:10 NO SPECIMEN RECEIVED IN LAB. Performed By: #### C BC ####[id number] [place] [address] [facility] Comment on above: Order Comment: TEST CBC WAS CANCELLED, 09/29/2021 08:10 NO SPECIMEN RECEIVED IN LAB. Performed By: #### C BC ####[id number] [place] [address] RDW-CV Canceled Normal [facility] Comment on above: Order Comment: TEST CBC WAS CANCELLED, 09/29/2021 08:10 NO SPECIMEN RECEIVED IN LAB. Performed By: #### C BC ####[id number] [place] [address] [facility] Comment on above: Order Comment: TEST CBC WAS CANCELLED, 09/29/2021 08:10 NO SPECIMEN RECEIVED IN LAB. Performed By: #### C BC ####[id number] [place] [address] BASIC METABOLIC PANELon 04-0 ANION GAP Canceled Normal [facility] Comment on above: Order Comment: TEST BASIC METABOLIC PANEL WAS CANCELLED, 09/28/2021 04:56 Performed By: #### B MP ####[id number] [place] [address] [address] C[address] Normal [facility] Comment on above: Order Comment: TEST BASIC METABOLIC PANEL WAS CANCELLED, 09/28/2021 04:56 Performed By: #### B MP ####[id number] [place] [address] [facility] Comment on above: Order Comment: TEST BASIC METABOLIC PANEL WAS CANCELLED, 09/28/2021 04:56 Performed By: #### B MP ####[id number] [place] [address] [facility] Comment on above: Order Comment: TEST BASIC METABOLIC PANEL WAS CANCELLED, 09/28/2021 04:56 Performed By: #### B MP ####[id number] [place] [address] [facility] Comment on above: Order Comment: TEST BASIC METABOLIC PANEL WAS CANCELLED, 09/28/2021 04:56 Performed By: #### B MP ####[id number] [place] [address] eGFR FEMALE Canceled Normal [facility] Comment on above: Order Comment: TEST BASIC METABOLIC PANEL WAS CANCELLED, 09/28/2021 04:56 Result Comment: CALC ULATIONS OF ESTIMATED GFR ARE PERFORMED USING THE 2020 CKD-EPI STUDY REFIT EQUATION WITHOUT THE RACE VARIABLE FOR THE IDMS-TRACEABLE CREATININE METHODS. https://jasn.asnjournals.org/content//ASN.42791 76068 Performed By: #### B MP ####[id number] [place] [address] eGFR MALE Canceled Normal [facility] Comment on above: Order Comment: TEST BASIC METABOLIC PANEL WAS CANCELLED, 09/28/2021 04:56 Result Comment: CALC ULATIONS OF ESTIMATED GFR ARE PERFORMED USING THE 2020 CKD-EPI STUDY REFIT EQUATION WITHOUT THE RACE VARIABLE FOR THE IDMS-TRACEABLE CREATININE METHODS. https://jasn.asnjournals.org/content//ASN.73452 28474 Performed By: #### B MP ####[id number] [place] [address] [facility] Comment on above: Order Comment: TEST BASIC METABOLIC PANEL WAS CANCELLED, 09/28/2021 04:56 Performed By: #### B MP ####[id number] [place] [address] [address] Normal [facility] Comment on above: Order Comment: TEST BASIC METABOLIC PANEL WAS CANCELLED, 09/28/2021 04:56 Performed By: #### B MP ####[id number] [place] [address] [facility] Comment on above: Order Comment: TEST BASIC METABOLIC PANEL WAS CANCELLED, 09/28/2021 04:56 Performed By: #### B MP ####[id number] [place] [address] UREA NITROGEN Canceled Normal [facility] Comment on above: Order Comment: TEST BASIC METABOLIC PANEL WAS CANCELLED, 09/28/2021 04:56 Performed By: #### B MP ####[id number] [place] [address] BASIC METABOLIC PANELon 04-0 Anion gap [Moles/Vol] 16 mmol/L Normal 10 - 20 [facility] Comment on above: Performed By: #### B MP #### [facility] [address] [place] [address] Calcium [Mass/Vol] 9.0 mg/dL Normal 8.6 - 10.6 [facility] Comment on above: Performed By: #### B MP #### [facility] [address] [place] [address] Chloride [Moles/Vol] 103 mmol/L Normal 98 - 107 [facility] Comment on above: Performed By: #### B MP #### [facility] [address] [place] [address] Creatinine [Mass/Vol] 0.83 mg/dL Normal 0.50 - 1.30 [facility] Comment on above: Performed By: #### B MP #### [facility] [address] [place] [address] eGFR MALE >90 Normal >90 [facility] Comment on above: Result Comment: CALC ULATIONS OF ESTIMATED GFR ARE PERFORMED USING THE 2020 CKD-EPI STUDY REFIT EQUATION WITHOUT THE RACE VARIABLE FOR THE IDMS-TRACEABLE CREATININE METHODS. https://jasn.asnjournals.org/content/early/ASN.31644 75839 Performed By: #### B MP #### [facility] [address] [place] [address] Glucose [Mass/Vol] 141 mg/dL High 74 - 99 [facility] Comment on above: Performed By: #### B MP #### [facility] [address] [place] [address] HCO3 (Bld) [Moles/Vol] 24 mmol/L Normal 21 - 32 [facility] Comment on above: Performed By: #### B MP #### [facility] [address] [place] [address] Potassium [Moles/Vol] 4.4 mmol/L Normal 3.5 - 5.3 [facility] Comment on above: Performed By: #### B MP #### [facility] [address] [place] [address] Sodium [Moles/Vol] 139 mmol/L Normal 136 - 145 [facility] Comment on above: Performed By: #### B MP #### [facility] [address] [place] [address] Urea nitrogen [Mass/Vol] 13 mg/dL Normal 6 - 23 [facility] Comment on above: Performed By: #### B MP #### [facility] [address] [place] [address] CBCon 09-27-[address] [facility] Comment on above: Order Comment: TEST URINALYSIS WAS CANCELLED, 09/19/2021 12:02 DUPLICATE ORDER. Performed By: #### U A #### [facility] [address] [place] [address] [facility] Comment on above: Order Comment: TEST URINALYSIS WAS CANCELLED, 09/19/2021 12:02 DUPLICATE ORDER. Performed By: #### U A #### [facility] [address] [place] [address] [facility] Comment on above: Order Comment: TEST URINALYSIS WAS CANCELLED, 09/19/2021 12:02 DUPLICATE ORDER. Performed By: #### U A #### [facility] [address] [place] [address] [facility] Comment on above: Order Comment: TEST URINALYSIS WAS CANCELLED, 09/19/2021 12:02 DUPLICATE ORDER. Performed By: #### U A #### [facility] [address] [place] [address] NUCLEATED RBC Canceled Normal [facility] Comment on above: Order Comment: TEST URINALYSIS WAS CANCELLED, 09/19/2021 12:02 DUPLICATE ORDER. Performed By: #### U A #### [facility] [address] [place] [address] [facility] Comment on above: Order Comment: TEST URINALYSIS WAS CANCELLED, 09/19/2021 12:02 DUPLICATE ORDER. Performed By: #### U A #### [facility] [address] [place] [address] [facility] Comment on above: Order Comment: TEST URINALYSIS WAS CANCELLED, 09/19/2021 12:02 DUPLICATE ORDER. Performed By: #### U A #### [facility] [address] [place] [address] RDW-CV Canceled Normal [facility] Comment on above: Order Comment: TEST URINALYSIS WAS CANCELLED, 09/19/2021 12:02 DUPLICATE ORDER. Performed By: #### U A #### [facility] [address] [place] [address] [facility] Comment on above: Order Comment: TEST URINALYSIS WAS CANCELLED, 09/19/2021 12:02 DUPLICATE ORDER. Performed By: #### U A #### [facility] [address] [place] [address] Erythrocyte distribution width (RBC) [Ratio] 13.1 % Normal 11.5 - 14.5 [facility] Comment on above: Performed By: #### U A #### [facility] [address] [place] [address] Hematocrit (Bld) [Volume fraction] 41.3 % Normal 41.0 - 52.0 [facility] Comment on above: Performed By: #### U A #### [facility] [address] [place] [address] Hemoglobin (Bld) [Mass/Vol] 14.1 g/dL Normal 13.5 - 17.5 [facility] Comment on above: Performed By: #### U A #### [facility] [address] [place] [address] MCHC (RBC) [Mass/Vol] 34.1 g/dL Normal 32.0 - 36.0 [facility] Comment on above: Performed By: #### U A #### [facility] [address] [place] [address] MCV (RBC) [Entitic vol] 93 fL Normal 80 - 100 [facility] Comment on above: Performed By: #### U A #### [facility] [address] [place] [address] NUCLEATED RBC 0.0 /100 WBC Normal 0.0-0.0 [facility] Comment on above: Performed By: #### U A #### [facility] [address] [place] [address] Platelets (Bld) [#/Vol] 217 10*3/uL Normal 150 - 450 [facility] Comment on above: Performed By: #### U A #### [facility] [address] [place] [address] RBC 4.42 x10E12/L Low 4.50 - 5.90 [facility] Comment on above: Performed By: #### U A #### [facility] [address] [place] [address] WBC (Bld) [#/Vol] 13.6 10*3/uL High 4.4 - 11.3 [facility] Comment on above: Performed By: #### U A #### [facility] [facility] [address] [place] [address] Daily Progress Note-Orthopae dicson 09-27-2021 Daily Progress Note-Orthopaedics Service: Orthopaedics Subjective Data: JAY CARR is a 61 year old Male who is Hospital Day # 2 and POD #1 for 1. XLIF L3/4, 4/5;2. Navigated percutaneous PSIF L3-5. Patient resting comfortably in bed. Pain well controlled. Denies CP, SOB, F/C, N/V. No new N/T. Objective Data: Objective Information: T PRBPMAPSpO2 [id number]/7598% Date/Time09/27 5: 5: 5: 5:394 5:39 Range(36.5C - 37C ) (77 - [...] Recent Arterial Blood Gas Results 09/26/2021 12:37 [id number] pH7.37 bPR377 BG5084 Base Excess0.8null Assessment and Plan: Code Status: Code StatusFull Code Assessment: 61 y/o male s/p L3/4-4/5 XLIF, L3-5 perc PSIF on 09/26/[address] Richardson, doing well. Plan: - WB status: WBAT, no excessive bending/twisting - DVT ppx: SCDs + Teds at all times while in bed, ambulation - Diet: Clear liquid diet, ADAT to regular - ASSOCIATE PROFESSOR OF COMMUNICATION => PO pain medication per pain protocol [...] Timothy Steinberg M.D. Orthopaedic Surgery, PGY-2 Pager: [phone] Orthopaedic Spine Team Brannon Steinberg, PGY-2 [phone] - 1st call Orquidea Akbar, PGY-4 [phone] - 2nd call Available via Doc Halo After 5pm-7am, weekends, holidays please page [phone] for weight control lecturer resident for urgent questions/concerns. Attestation: Note Completion: [...] the note. I personally evaluated the patient [id number] Electronic Signatures: Sal Richardson) (Signed 29-Sep-2021 11:37) Authored: Note Completion Co-Signer: Service, Subjective Data, Objective Data, Assessment and Plan, Note Completion Timothy Steinberg (Resident)) (Signed 27-Sep-2021 06:49) Authored: Service, Subjective Data, Objective Data, Assessment and Plan, Note Completion Last Updated: 29-Sep-2021 11:37 by Sal Richardson) [facility] Order Reconciliationon 09-27 Order Reconciliation Page 1 Discharge Reconciliation Document Reconciliation Type: Discharge requested on behalf of Timothy Steinberg (Resident) done by Timothy Steinberg ( (Resident)) Discharge - Reconciliation: 27-Sep-2021 13:39 by: Timothy Steinberg ( (Resident)) Discharge - Reset to Incomplete: 27-Sep-2021 13:40 by: Timothy Stienberg ( (Resident)) Discharge - Reconciliation: 27-Sep-2021 13:42 [...] unarousable, and respiratory rate lessClinician Notes: HOLD ASSOCIATE PROFESSOR OF COMMUNICATION Infusion and notify H.O. immediately 26-Sep-2021 15:16 [...] at Discharge: (more content not included)... Normal [facility] PT Evaluation t2-ew-jwbbxslx t - co-tx c/ OT for maximized saon 09-27-2021 PT Evaluation v2-hf-jfjjevnov - co-tx c/ OT for maximized sa Rehab: Info: Mode of Treatmentco-treatment; physical therapy; co-tx c/ OT for maximized safety and mobility Time IN10:00 Time OUT10:27 Total Treatment Oijzgpe04 Patient in ... at end of sessionchair; alarm on Communicated with ... at end of sessionbedside nurse Patient Effortexcellent Symptoms Noted During/After Treatmentnone Patient Profile Reviewedyes Onset of Illness/Injury or Date of [id number]-2845 Reason for ReferralXLIF L3/4, 4/5;2. Navigated percutaneous [...] Mobility/Tone: Bed Mobility Assessment/Interventions supine to sit Kduted-hd-Hgd Stirling (Bed Mobility)standby assist; 1 person assist Assistive Device (Bed Mobility)bed rails Comment, Bed MobilityPt. educated on log roll Transfer Assessment/Interventions sit to stand transfer; stand to sit transfer; bed to chair transfer Bed-Chair Stirling (Transfers)1 person assist; standby assist; verbal cues Sit-Stand Stirling (Transfers)standby assist; 1 person assist Sit-Stand Assistive Device (Transfers)no AD Stand-Sit Stirling (Transfers)standby assist; 1 person assist Stand-Sit Assistive [...] Motor: Sitting, Static (Balance)SBA Sitting, Dynamic (Balance)SBA Dyg-cw-Wlrii (Balance)SBA Standing, Static (Balance)SBA Standing, Dynamic (Balance)SBA [...] goals Thera (more content not included)... Normal [facility] ARTERIAL FULL PANELon 2021 Anion gap [Moles/Vol] 11 mmol/L Normal 10 - 25 [facility] Comment on above: Performed By: #### A FPA4 #### [facility] [address] [place] [address] BASE EXCESS-BLOOD 0.8 mmol/L Normal -2.0 - 3.0 [facility] [place] Comment on above: Performed By: #### A FPA4 #### [facility] [address] [place] [address] BICARB, CALCULATED 26.6 mmol/L High 22.0 - 26.0 [facility] Comment on above: Performed By: #### A FPA4 #### [facility] [address] [place] [address] CALCIUM,IONIZED 1.15 mmol/L Normal 1.10 - 1.33 [facility] Comment on above: Performed By: #### A FPA4 #### [facility] [address] [place] [address] Chloride [Moles/Vol] 102 mmol/L Normal 98 - 107 [facility] Comment on above: Performed By: #### A FPA4 #### [facility] [address] [place] [address] Glucose [Mass/Vol] 114 mg/dL High 74 - 99 [facility] Comment on above: Performed By: #### A FPA4 #### [facility] [address] [place] [address] Hematocrit (Bld) [Volume fraction] 42.0 % Normal 41.0 - 52.0 [facility] Comment on above: Performed By: #### A FPA4 #### [facility] [address] [place] [address] Hemoglobin (Bld) [Mass/Vol] 14.1 g/dL Normal 13.5 - 17.5 [facility] Comment on above: Performed By: #### A FPA4 #### [facility] [address] [place] [address] Lactate [Moles/Vol] 1.3 mmol/L Normal 0.4 - 2.0 [facility] Comment on above: Performed By: #### A FPA4 #### [facility] [address] [place] [address] OXY HGB 97.5 % Normal 94.0 - 98.0 [facility] Comment on above: Performed By: #### A FPA4 #### [facility] [address] [place] [address] Oxygen (Bld) [Partial pressure] 160 mm[Hg] High 85 - 95 [facility] Comment on above: Performed By: #### A FPA4 #### [facility] [address] [place] [address] PATIENT TEMPERATURE 37.0 degrees C Normal [facility] Comment on above: Result Comment: NOTE : PATIENT RESULTS ARE NOT CORRECTED FOR TEMPERATURE. Performed By: #### A FPA4 #### [facility] [address] [place] [address] PCO2 46 mmHg High 38 - 42 [facility] Comment on above: Performed By: #### A FPA4 #### [facility] [address] [place] [address] pH (Bld) 7.37 [pH] Low 7.38 - 7.42 [facility] Comment on above: Performed By: #### A FPA4 #### [facility] [address] [place] [address] Potassium [Moles/Vol] 4.8 mmol/L Normal 3.5 - 5.3 [facility] Comment on above: Performed By: #### A FPA4 #### [facility] [address] [place] [address] SO2 100 % Normal 94 - 100 [facility] Comment on above: Performed By: #### A FPA4 #### [facility] [address] [place] [address] Sodium [Moles/Vol] 135 mmol/L Low 136 - 145 [facility] Comment on above: Performed By: #### A FPA4 #### [facility] [address] [place] [address] Admission Risk Screen - Adul ton 09-26-2021 [...] AlertFor Ebola-like Symptoms: Isolate Patient and Notify Provider/Therapy Director For Contact: Notify Provider/Therapy Director Advance Directive: Advance Directive/DNRno Advance Directive Information [...] Communicatenone Learning Preferencesaudio Cultural Considerationsnone Developmental Considerationsnone Hindu Considerationsnone Learning Assessment (Other Learner): Other learner availableno Depression Screen: During the past month, have you often been bothered by feeling down, depressed or hopelessno During the past month, have you often had little interest or pleasure in doing thingsno Have you had any thoughts of harming anyone elseno [place] Suicide: Risk Screen Not Applicable/Able to Answerable to be screened In the Past Month: Have you wished you were or could go to sleep and not wake upno(1) In the Past Month: Have you had any actual thoughts of killing yourself no(1) Lifetime: Have you ever done, started to do, or prepared to do anything to end your lifeno(1) [place] Suicide Risknegative Adult Nutrition Screen: Have you [...] Spiritual Screen: Are there any cultural, spiritual, latter-day practices/values/needs that are important for us to knowno CAGE: Is this an injured patient at a Trauma Center ([facility] /[place]): no Vaccinations: Vaccination - Influenza Vaccination Screen: Is it flu season (between and September 21)Yes Screening for identified contraindications to influenza vaccinationpatient already received vaccine this season Vaccination - Pneumonia Vaccination Screen: Patient has received a previous pneumonia vaccine:no/unknown... Immunocompetent persons with underlying chronic conditions or r (more content not included)... Normal [facility] Daily Progress Note-Orthopae kaison 09-26-2021 Daily Progress Note-Orthopaedics Service: Orthopaedics Subjective [...] Recent Arterial Blood Gas Results 09/26/2021 12:37 [id number] pH7.37 [id number] OL1915 Base Excess0.8null Assessment and Plan: Code Status: Code StatusFull Code Assessment: 61 y/o male s/p L3/4-4/5 XLIF, L3-5 perc PSIF on 09/26/[address] Richardson, doing well. Plan: - WB status: WBAT, no excessive bending/twisting - DVT ppx: SCDs + Teds at all times while in bed, ambulation - Diet: Clear liquid diet, ADAT to regular - ASSOCIATE PROFESSOR OF COMMUNICATION => PO pain medication per pain protocol - 24 hr perioperative abx: clinda x 4 doses - FEN: Continue NS at 100cc/hr; HLIV with good PO intake - Bowel Regimen: Colace, Dulcolax, Senna - PT/OT consult - Continue home medications - Discontinue goodrich catheter POD #1 - Decadron 4mg q6hr x4 doses Dispo: to VERONICA Steinberg M.D. Orthopaedic Surgery, PGY-2 Pager: [phone] Orthopaedic Spine Team Brannon Steinberg, PGY-2 [phone] - 1st call Divinaleida Raffy PGY-4 [phone] - 2nd call Available via Doc Halo After 5pm-7am, weekends, holidays please page [phone] for weight control lecturer resident for urgent questions/concerns. Attestation: Note Completion: [...] the note. I personally evaluated the patient [id number] Electronic Signatures: Sal Richardson) (Signed 29-Sep-2021 11:38) Authored: Note Completion Co-Signer: Service, Subjective Data, Objective Data, Assessment and Plan, Note Completion Timothy Steinberg (Resident)) (Signed 26-Sep-2021 15:36) Authored: Service, Subjective Data, Objective Data, Assessment and Plan, Note Completion Last Updated: 29-Sep-2021 11:38 by Sal Richardson) Normal [facility] Discharge Planning Vupg6nn 0 09-26-2021 Discharge Planning Note2 Discharge Planning: Planned Dispositionhome Anticipated Discharge [id number] Discharge Planning 09/27/21 1335 Transitional Care Coordination Progress Note: TCC verified demo is correct. lives at home with . pcp audrey armstrong. received covid vaccine x2 and booster x1. feels safe to return home today Patient discussed during interdisciplinary rounds. Team members present: MD/ONSHORE DIVER, TCC, Plan per Medical/Surgical team: patient goodrich out. acquisition professional changed to oral with pain control. MR for dc after working with PT OT today Status: inpatient Payor source: commercial Discharge disposition: home no needs per PT OT eval Potential Barriers: ADOD: today Calli Jones RN TCC 09/27/21 Patient discharged home with . Heatehr Foster RN Assessment: Discharge Planning Assessment [id number] Discharge Planning Assessment Completed bycalli jones RN TCC Primary Contact Name and Numberwihortencia Becker [phone] Prior Level of FunctioningNA Lives Withspouse(1) Living Arrangementshouse(1) Stated Reason for Admissionback and hip pain(1) [place] ([place]) PCPAudrey Armstrong [facility]/ Injury/ Need Assist with AmbulationNA DME Supplier Name/NumberNA Home Care Agency/Support ServicesNA Diabetic/Supplies NeededNA Hemodialysis ScheduleNA Resource/Environmental Concernsnone(1) Anticipated Transition [place](1) Services Anticipated at Transitionnon(1) Readmission Within the Last 30 Daysno previous admission in last 30 days [facility]Com[facility] Home Who/HowMarty [facility] and will be ride home today Medication Adherence/Afford/Obtainy es O2 LPMNA Nursing Checklist: Lines/Cathetersremoved/a ppropriate for next level of care Discharge Med Rec Reconciled with Loree Patient has Prescriptionsyes Transportation for Discharge Confirmedyes Follow up Reviewedyes Discharge Instructions Reviewed WithPatient Discharge Instructions Outcomeverbalize recall/understanding Discharge Instructions Review Completed with Patient/Family (diet, activity, pt instructions)yes Discharge Documentation: Discharge/Transfer Date/Fycs94-Tcy-9414 17:00 Discharged Accompanied Byspouse Discharge Modewheelchair Transportation Methodprivate car Code StatusCode Status order at time of discharge: Full Code [place] DNR Form Sent with Patient and/or Familyn/a Valuables/Medications/Be longings Returnedyes [facility] Electronic Signatures: HEDY SHEPPARD) (Signed 26-Sep-2021 21:59) Authored: Discharge Planning, Assessment, Discharge Documentation Heather Foster) (Signed 27-Sep-2021 17:12) Authored: Discharge Planning, Nursing Checklist, Discharge Documentation Calli Jones) (Signed 27-Sep-2021 13:35) Authored: Discharge Planning, Assessment Last Updated: 27-Sep-2021 17:12 by Heather Foster (RN) References: 1. Data Referenced From Patient Profile - Adult v2 26-Sep-2021 21:[address] [facility] Discharge Cafzawk1gg 022 Discharge Profile2 Discharge Orders: Anticipated Discharge Date: Anticipated Discharge [id number]-8922 Problem List: Additional Dx: Lumbar radicular pain: [...] HAVE ANTONIO REMOVED IN 3 WKS. AT [place] [address] [facility] 5TH FLOOR ON 10/18/2021 AT 0930 WITH [facility] SANTIAGO. REHAB FACILITIES OR HOME CARE MAY REMOVE ANTONIO OR SUTURES. Wound Care 2: Wound SiteBACK (Lumbar Spine) Wound Typesurgical incision Change Dressingdaily Cleanse Withsoap and water Cover Withabdominal dressing Tape Withpaper tape Instructionsno lotions, creams, or tub soaks Other InstructionsPLEASE HAVE ANTONIO REMOVED IN 3 WKS. AT [place] [address] [facility] 5TH FLOOR ON 10/18/2021 AT 0930 [...] floor. Patient was initially started on dilaudid ASSOCIATE PROFESSOR OF COMMUNICATION x24 hours and then transitioned to an [...] Call to Schedule in6 weeks, PLEASE CALL [phone] TO SCHEDULE YOUR AMBER (more content not included)... Normal [facility] - [facility] PREOPERATIVE DIAGNOSIS: Spinal stenosis and spondylolisthesis L3-4 and L4-5 in a patient with unrelenting claudication and radiculopathy. POSTOPERATIVE DIAGNOSIS: Spinal stenosis and spondylolisthesis L3-4 and L4-5 in a patient with unrelenting claudication and radiculopathy. OPERATION/PROCEDURE: Anterior lumbar interbody fusion by extreme lateral approach at L3-4 and L4-5 with use of interbody cage device x2. SURGEON: Sal Richardson MD. SHEET METAL FABRICATOR(S): hotel administrative assistant: Cb Casanova PA-C. Second casino assistant manager: Brannon Steinberg, second resident. ANESTHESIA: ESTIMATED BLOOD [...] Deep layers were repaired using 0 Vicryl kkqonr-vv-plero sutures, deep dermal layer was repaired using 2-0 Vicryl sutures, and the skin was repaired using antonio. Dry sterile dressing was ap (more content not included)... Normal [facility] Operative Reports - [facility] PREOPERATIVE DIAGNOSIS: POSTOPERATIVE DIAGNOSIS: OPERATION/PROCEDURE: Posterior spinal [...] Deep layers were repaired using 0 Vicryl xcgkiv-cm-usbzm sutures, deep dermal layer was repaired using [...] instrumentation and fusion. SURGEON: Sal Richardson MD. SHEET METAL FABRICATOR(S): ANESTHESIA: This is part 2 of a two-staged procedure. Part 1 was dictated in dictation #[id number]. Refer to dictation #[id number] for all details regarding the first part of the surgery. Sal Richardson MD EST EST DICTATION NUMBER: [id number] INTERNAL JOB NUMBER: [id number] CC: Sal Richardson MD, Electronic Signatures: Sal Richardson) (Signed on 03-Oct-2021 12:03) Authored Unsigned, Draft (SYS GENERATED) (Entered on 30-Sep-2021 07:37) Entered Last Updated: 03-Oct-2021 12:03 by Sal Richardson) [facility] Order Reconciliationon 09-26 Order Reconciliation Page 1 Admission Reconciliation Document Reconciliation Type: Admission from OR requested on behalf of Timothy Steinberg (Resident) done by Timothy Steinberg (Resident)) Admission from OR - Reconciliation: 26-Sep-2021 18:10 by: Timothy Steinberg (Resident)) Home MedicationsEnteredLast Dose TakenReconciled with current Order Reconciliation Comment/ Additional Information hydroxychloroquine 200 mg oral tablet 1 tab(s) oral 2 times a [id number]-Sep-2021 Hydroxychloroquine - PEDS Tablet (PLAQUENIL)DOSE = 200 mg Oral 2 Times a Dayhydroxychloroquine 200 mg oral tablet continued as the inpatient order Hydroxychloroquine - PEDS irbesartan 300 mg oral tablet 1 tab(s) oral once a [id number]-550 2 Reviewed and Held methocarbamol 500 mg oral tablet 2 tab(s) oral every 8 -Dkz-052926-Sep-2021 Reviewed and Held NIFEdipine 30 mg oral tablet, extended release 1 tab(s) oral once a day [id number] NIFEdipine (PROCARDIA XL) Extended Release Tablet, Extended ReleaseDOSE = 30 mg Oral DailyNIFEdipine 30 mg oral tablet, extended release continued as the inpatient order NIFEdipine (PROCARDIA XL) Extended Release pantoprazole 40 mg oral delayed release tablet 1 tab(s) oral once a day [id number] Pantoprazole Enteric Coated Tablet (PROTONIX)DOSE = 40 mg Oral Dailypantoprazole 40 mg oral delayed release tablet continued as the inpatient order Pantoprazole tiZANidine 4 mg oral tablet 1 oral [id number] Reviewed and Held Vitamin C 1 3 times a zbg29-Htm-773461-Ize-789 2 Reviewed and Held Vitamin D3 1 3 times a vcb65-Dra-549155-Ssa-014 2 Reviewed and Held Zinc 140 mg [...] of 4 mg regardless of dose. HYDROmorphone ASSOCIATE PROFESSOR OF COMMUNICATION 25 mg/ NaCL 0.9% 50 mL (DILAUDID IV ASSOCIATE PROFESSOR OF COMMUNICATION)DEMAND/ ASSOCIATE PROFESSOR OF COMMUNICATION Dose = 0.2 mgDELAY/ Lockout Time Period [...] unarousable, and respiratory rate lessClinician Notes: HOLD ASSOCIATE PROFESSOR OF COMMUNICATION Infusion and notify H.O. immediately Ondansetron Injectable [...] hours: Do NOT use with Bisacodyl. Normal [facility] Patient Profile - Adult v2on 09-26-2021 Patient Profile - Adult v2 Profile: Initial Info: How to be AddressedPaul(1) Spoken Language PreferredEnglish (1) Stated Reason for Admissionback and hip pain Wants Family/Rep Notified of Admissionno Notify PCPdo not notify PCP Informed of Patient Visiting Rightsyes [place] Patient Belongingsremains with patient Patient Belongings Remaining [...] From 1. Vital Signs 26-Sep-2021 07:[address] [facility] Patient Profile - Preop v3on 09-26-2021 Patient Profile - Preop v3 Patient Profile - Preop: Initial Info: Patient DemographicsName: JAY CARR Date: 1960 Address: [facility] [address] [place] [address] Primary Phone [phone] How to be AddressedPaul Spoken Language PreferredEnglish [...] Withspouse Living Arrangementshouse Resource/Environmental Concernsnone Anticipated Transition [place] Services Anticipated at Transitionnone Tobacco Use: Tobacco Useno Pre-op Checklist: Arrival Kuxd32-New-9810 NPOyes ID Band On Patientpatient ID (name), [...] 26-Sep-2021 07:11 by Maisha Meyer (ALICE) Normal [facility] CORONAVIRUS 2019, SCREEN ASY MPTOMATICon 09-25-2021 SARS-CoV-2 (COVID-19) RNA LU+probe Ql (Unsp spec) Not detected Normal Not Detected [facility] Comment on above: Result Comment: [...] patient management decisions. Fact sheet for providers: https://www.fda.gov/media/175641/download Fact sheet for patients: https://www.fda.gov/media/808893/download This test has received FDA Emergency Use Authorization (EUA) and has been verified by [facility] ([facility]). This test is only authorized for the duration of time that circumstances exist to justify the authorization of the emergency use of in vitro diagnostic tests for the detection of SARS-CoV-2 virus and/or diagnosis of COVID-19 infection under section 564(b)(1) of the Act, 21 U.S.C. 360bbb-3(b)(1), unless the authorization is terminated or revoked sooner. [facility] is certified under CLIA-88 as qualified to perform high complexity testing. Testing is performed in the [facility] laboratories located at [address] [place] [address]. Performed By: #### U ARFX #### [place] [address] Lab Specimen Source Nasal, Nasopharyngeal Normal [facility] Comment on above: Performed By: #### U ARFX #### [place] [address] Covid 19 Resultson 2 SARS-CoV-2 (COVID-19) RNA [...] You may also be contacted by the [facility] of Health to see if any of your close [...] or Naproxen (Aleve) can also be used. Qfyf-hkf-nvyydvz cough and cold medicines can be used according to the instructions on the package. Some hdch-vgq-fosefqh medicines also contain acetaminophen. Make sure you [...] water are not available, use alcohol-based hand public health dentist. Avoid touching your eyes, nose, and mouth [...] 24 mary (more content not included)... Normal [facility] COAGULATION SCREENon 022 aPTT Coag (Bld) [Time] 34 s Normal 26 - 39 [facility] Comment on above: Result Comment: THE APTT IS NO LONGER USED FOR MONITORING UNFRACTIONATED HEPARIN THERAPY. FOR MONITORING HEPARIN THERAPY, USE THE HEPARIN ASSAY. Performed By: #### U ARFX #### [facility] [address] [place] [address] PT Coag (PPP) [Time] 11.1 s Normal 9.8 - 13.4 [facility] Comment on above: Performed By: #### U ARFX #### [facility] [address] [place] [address] PT, INR 1.0 Normal 0.9 - 1.1 [facility] Comment on above: Performed By: #### U ARFX #### [facility] [address] [place] [address] Laboratory - Blood bankon ABO group Nom [...] Perioperative Med Work Phone: STAPH/MRSA SCREENon 09-20-19 22 STAPH/MRSA SCREEN PATIENT: JAY CARR LOCATION: [facility] STOLL#: [id number] : 62 AGE: SEX: M ORDERED BY: SAL RICHARDSON SOURCE: ANTERIOR NARES COLLECTED: 09/19/21 10:10 ANTIBIOTICS AT BRAEDEN.: RECEIVED : 09/19/21 12:47 SITE: Nasal R E S U L T S STAPH/MRSA SCREEN FINAL 09/20/21 13:57 NO Staphylococcus aureus ISOLATED. Normal [facility] Comment on above: Performed By: #### S TAPH #### [facility] [address] [place] [address] TYPE + SCREENon 09-19-2021 ABO [address] O [address] [facility] Comment on above: Performed By: #### T +S #### [facility] [address] [place] [address] RH TYPE Negative Normal [facility] Comment on above: Performed By: #### T +S #### [facility] [address] [place] [address] URINALYSISon 09-19-2021 Appearance (U) Canceled Normal [facility] Comment on above: Order Comment: TEST URINALYSIS WAS CANCELLED, 09/19/2021 12:02 DUPLICATE ORDER. Performed By: #### U A #### [place] [address] [place] [address] ASCORBIC ACID Canceled Normal [facility] Comment on above: Order Comment: TEST URINALYSIS WAS CANCELLED, 09/19/2021 12:02 DUPLICATE ORDER. Result Comment: Conc entrations > = 20 mg/dL of ascorbic acid can be expected to cause strong interference in the reactions testing for glucose, nitrite and blood. It is recommended to discontinue Vitamin C administration and retest in 10 hours. Performed By: #### U A #### [facility] [address] [place] [address] Bilirubin Ql (U) Canceled Normal [facility] Comment on above: Order Comment: TEST URINALYSIS WAS CANCELLED, 09/19/2021 12:02 DUPLICATE ORDER. Performed By: #### U A #### [facility] [address] [place] [address] Color (U) Canceled Normal [facility] Comment on above: Order Comment: TEST URINALYSIS WAS CANCELLED, 09/19/2021 12:02 DUPLICATE ORDER. Performed By: #### U A #### [facility] [address] [place] [address] Glucose Ql (U) Canceled Normal [facility] Comment on above: Order Comment: TEST URINALYSIS WAS CANCELLED, 09/19/2021 12:02 DUPLICATE ORDER. Performed By: #### U A #### [facility] [address] [place] [address] Hemoglobin Ql (U) Canceled Normal [facility] [place] Comment on above: Order Comment: TEST URINALYSIS WAS CANCELLED, 09/19/2021 12:02 DUPLICATE ORDER. Performed By: #### U A #### [facility] [address] [place] [address] Ketones Ql (U) Canceled Normal [facility] Comment on above: Order Comment: TEST URINALYSIS WAS CANCELLED, 09/19/2021 12:02 DUPLICATE ORDER. Performed By: #### U A #### [facility] [address] [place] [address] Leukocyte esterase Test strip Ql (U) Canceled Normal [facility] Comment on above: Order Comment: TEST URINALYSIS WAS CANCELLED, 09/19/2021 12:02 DUPLICATE ORDER. Performed By: #### U A #### [facility] [address] [place] [address] Nitrite Ql (U) Canceled Normal [facility] Comment on above: Order Comment: TEST URINALYSIS WAS CANCELLED, 09/19/2021 12:02 DUPLICATE ORDER. Performed By: #### U A #### [facility] [address] [place] [address] [facility] Comment on above: Order Comment: TEST URINALYSIS WAS CANCELLED, 09/19/2021 12:02 DUPLICATE ORDER. Performed By: #### U A #### [facility] [address] [place] [address] Protein Ql (U) Canceled Normal [facility] Comment on above: Order Comment: TEST URINALYSIS WAS CANCELLED, 09/19/2021 12:02 DUPLICATE ORDER. Performed By: #### U A #### [facility] [address] [place] [address] Specific gravity (U) [Rel density] Canceled Normal [facility] Comment on above: Order Comment: TEST URINALYSIS WAS CANCELLED, 09/19/2021 12:02 DUPLICATE ORDER. Performed By: #### U A #### [facility] [address] [place] [address] [address] [facility] Comment on above: Order Comment: TEST URINALYSIS WAS CANCELLED, 09/19/2021 12:02 DUPLICATE ORDER. Performed By: #### U A #### [facility] [address] [place] [address] URINALYSIS WITH CULTURE IF I NDICATEDon 09-19-2021 Appearance (U) CLEAR Normal CLEAR [facility] Comment on above: Performed By: #### U ARFX #### [facility] [address] [place] [address] Bilirubin Ql (U) Negative Normal NEGATIVE [facility] Comment on above: Performed By: #### U ARFX #### [facility] [address] [place] [address] Color (U) YELLOW Normal STRAW,YELL OW [facility] Comment on above: Performed By: #### U ARFX #### [facility] [address] [place] [address] Glucose Ql (U) Negative Normal NEGATIVE [facility] Comment on above: Performed By: #### U ARFX #### [facility] [address] [place] [address] Hemoglobin Ql (U) Negative Normal NEGATIVE [facility] [place] Comment on above: Performed By: #### U ARFX #### [facility] [address] [place] [address] Ketones Ql (U) Negative Normal NEGATIVE [facility] Comment on above: Performed By: #### U ARFX #### [facility] [address] [place] [address] Leukocyte esterase Test strip Ql (U) Negative Normal NEGATIVE [facility] Comment on above: Performed By: #### U ARFX #### [facility] [address] [place] [address] Nitrite Ql (U) Negative Normal NEGATIVE [facility] Comment on above: Performed By: #### U ARFX #### [facility] [address] [place] [address] pH (U) 6.0 [pH] Normal 5.0 - 8.0 [facility] Comment on above: Performed By: #### U ARFX #### [facility] [address] [place] [address] Protein Ql (U) Negative Normal NEGATIVE [facility] Comment on above: Performed By: #### U ARFX #### [facility] [address] [place] [address] Specific gravity (U) [Rel density] 1.016 Normal 1.005 - 1.035 [facility] Comment on above: Performed By: #### U ARFX #### [facility] [address] [place] [address] Urobilinogen (U) [Mass/Vol] mg/dL Normal 0.0 - 1.9 [facility] Comment on above: Performed By: #### U ARFX #### [facility] [address] [place] [address] Color (U) YELLOW See Below [facility] [...] and retest in 10 hours. Office Visiton 08-23-2021 Follow-up visit Diagnoses/Problems Spondylolisthesis, lumbar region (738.4) [...] may no (more content not included)... Normal [facility] Office Visiton 08-03-2021 Follow-up visit Diagnoses/Problems Lumbar [...] Hold For - Scheduling,Retrospective Authorization Requested for: [id number] Lumbar back pain, Lumbar stenosis with neurogenic [...] disorder with myelopathy. COMPARISON: None. ACCESSION NUMBER(S): [id number] ORDERING CLINICIAN: SAL RICHARDSON FINDINGS: C-spine, two views Anterior spinal fusion C5-C7 with intact hardware. There is normal alignment. No fracture. No degenerative changes seen. IMPRESSION: Anterior spinal fusion C5-C7 without evidence hardware failure Electronically signed by: JULIA ARAIZA MD Normal [facility] CORONAVIRUS 2018, SCREEN ASY MPTOMATICon 07-05-2021 DATE OF SYMPTOM ONSET [[id number]]? Canceled Normal [facility] Comment on above: Order Comment: TEST CORONAVIRUS 2018, SCREEN ASYMPTOMATIC WAS CANCELLED, 07/05/2021 13:31 ptdid not have test done.. Performed By: #### U ARFX #### [facility] [address] [place] [address] SARS-CoV-2 (COVID-19) RNA LU+probe Ql (Unsp spec) Canceled Normal [facility] Comment on above: Order Comment: [...] patient management decisions. Fact sheet for providers: https://www.fda.gov/media/128798/download Fact sheet for patients: https://www.fda.gov/media/544129/download This test has received FDA Emergency Use Authorization (EUA) and has been verified by [facility] ([facility]). This test is only authorized for the duration of time that circumstances exist to justify the authorization of the emergency use of in vitro diagnostic tests for the detection of SARS-CoV-2 virus and/or diagnosis of COVID-19 infection under section 564(b)(1) of the Act, 21 U.S.C. 360bbb-3(b)(1), unless the authorization is terminated or revoked sooner. [facility] is certified under CLIA-88 as qualified to perform high complexity testing. Testing is performed in the [facility] laboratories located at [address] [place] [address]. Performed By: #### U ARFX #### [place] [address] ABO/RH GROUP TESTon 06-21-20 21 ABO [address] O Normal [facility] Comment on above: Performed By: #### U ARFX #### [place] [address] RH TYPE Negative Normal [facility] Comment on above: Performed By: #### U ARFX #### [place] [address] Operative Reports - [facility] [place] [address] Patient Name: PAUL. Trena CARR : 1960 Date of Service: 06/21/2021 Patient Location: [facility] [id number] Patient Type: O Surgeon: Sal Richardson MD [...] anterior plate instrumentation. SURGEON: Sal Richardson MD SHEET METAL FABRICATOR(S): Ad Valdivia MD, chief resident. ANESTHESIA: ESTIMATED [...] current moratorium due to short staffing at [facility]. The patient agreed to have the surgery [...] excellent posi (more content not included)... Normal [facility] Order Reconciliationon 06-21 Order Reconciliation [...] a day (more content not included)... Normal [facility] Order Reconciliation Page 1 Admission Reconciliation Document Reconciliation Type: Admission requested on behalf of Cheikh August (Resident) done by Cheikh August (Resident)) Admission - Reconciliation: 21-Jun-2021 06:37 by: Cheikh August (Resident)) Home MedicationsEnteredLast Dose TakenReconciled with current Order Reconciliation Comment/ Additional Information celecoxib 200 mg oral capsule 1 cap(s) oral 2 times a [id number] Reviewed and Held gabapentin 300 mg oral capsule 1 tab(s) oral once a [id number] Reviewed and Held hydroxychloroquine 200 mg oral tablet 1 tab(s) oral 2 times a yqt97-Amk-6120 Hydroxychloroquine Tablet (PLAQUENIL)DOSE = 200 mg Oral 2 Times a Day hydroxychloroquine 200 mg oral tablet continued as the inpatient order Hydroxychloroquine irbesartan 300 mg oral tablet 1 tab(s) oral once a cwc73-Vzu-6600 Reviewed and Held NIFEdipine 30 mg oral [...] Pantoprazole Vitamin C 1 3 times a [id number]-[id number]-1833 Reviewed and Held Vitamin D3 1 3 times a whi86-Roh-6623 Reviewed and Held Zinc 140 mg (as elemental zinc 50 mg) oral tablet 1 tab(s) oral once a day 21-Jun-2021 Reviewed and Held Normal [facility] Patient Profile - Preop v3on 06-21-2021 Patient Profile - Preop v3 Patient Profile - Preop: Initial Info: Patient DemographicsName: JAY CARR Date: 1960 Address: [address] [place] [address] Primary Phone [phone] How to be AddressedPaul Spoken Language PreferredEnglish Source of Informationpatient Stated Reason for Admissionback surgery Primary Contact Name and NumberAna Lilia Carr () [phone] Limitations on Visitors/Phone Callsnone Patient Belongings2 bags in pacu, glasses and phone with pt Medications Brought to Hospital[facility] General Health: Weight in kg98.9 kilogram(s) Weight in dpa827 pound(s) Weight Methodactual (measured) Scale Typestanding Height in feet5 feet Height in inches9 inch(es) Height in cm175.2 centimeter(s) Height Methodstated BMI (kg/m2)32.22 square meter Patient or Family Member Reaction to Anesthesiapatient reaction Patient Reaction to Anesthesiaawakening delayed Blood Avoidance/Restrictionsno ne Previous Transfusion Reactionnot applicable Health Mgmt: Symptoms/Conditions Managed at [facility] significant events Barriers to Managing Healthnone Relationship/Environ: Lives Withspouse Living Arrangementshouse Resource/Environmental Concernsnone Anticipated [facility] Anticipated at Transitionnone Tobacco Use: Tobacco Useno Pre-op Checklist: Arrival [id number] Arrival Time06:43 Procedure TypeC5-7 decompression and fusion [...] 21-Jun-2021 06:45 by Maisha Meyer (ALICE) Normal [facility] CORONAVIRUS 2019, SCREEN ASY MPTOMATICon 06-20-2021 SARS-CoV-2 (COVID-19) RNA LU+probe Ql (Unsp spec) Not detected Normal Not Detected [facility] Comment on above: Result Comment: [...] patient management decisions. Fact sheet for providers: https://www.fda.gov/media/546710/download Fact sheet for patients: https://www.fda.gov/media/474224/download This test has received FDA Emergency Use Authorization (EUA) and has been verified by [facility] ([facility]). This test is only authorized for the duration of time that circumstances exist to justify the authorization of the emergency use of in vitro diagnostic tests for the detection of SARS-CoV-2 virus and/or diagnosis of COVID-19 infection under section 564(b)(1) of the Act, 21 U.S.C. 360bbb-3(b)(1), unless the authorization is terminated or revoked sooner. [facility] is certified under CLIA-88 as qualified to perform high complexity testing. Testing is performed in the [facility] laboratories located at [address] [place] [address]. Performed By: #### U ARFX #### [address] [place] [address] Covid 19 Resultson 1 SARS-CoV-2 (COVID-19) RNA [...] You may also be contacted by the [facility] of [facility] to see if any of your close [...] or Naproxen (Aleve) can also be used. Osfn-uzc-loscood cough and cold medicines can be used according to the instructions on the package. Some pmeh-nol-imivfkr medicines also contain acetaminophen. Make sure you [...] water are not available, use alcohol-based hand public health dentist. Avoid touching your eyes, nose, and mouth [...] 24 mary (more content not included)... Normal [facility] CORONAVIRUS 2019, SCREEN ASY MPTOMATICon 06-19-2021 Lab Specimen Source Nasal, Nasopharyngeal Normal [facility] Comment on above: Performed By: #### U ARFX #### [facility] [address] [place] [address] BASIC METABOLIC PANELon 12- Anion gap [Moles/Vol] 14 mmol/L Normal 10 - 20 [facility] Comment on above: Performed By: #### B MP #### [facility] [address] [place] [address] Calcium [Mass/Vol] 9.0 mg/dL Normal 8.6 - 10.6 [facility] Comment on above: Performed By: #### B MP #### [facility] [address] [place] [address] Chloride [Moles/Vol] 105 mmol/L Normal 98 - 107 [facility] Comment on above: Performed By: #### B MP #### [facility] [address] [place] [address] Creatinine [Mass/Vol] 0.85 mg/dL Normal 0.50 - 1.30 [facility] Comment on above: Performed By: #### B MP #### [facility] [address] [place] [address] GFR- AM. >60 Normal >60 [facility] Comment on above: Result Comment: CALC ULATIONS OF ESTIMATED GFR ARE PERFORMED USING THE MDRD STUDY EQUATION FOR THE IDMS-TRACEABLE CREATININE METHODS. CLIN CHEM 2007;53:766-72 Performed By: #### B MP #### [facility] [address] [place] [address] GFR-NON AM. >60 Normal >60 [facility] Comment on above: Performed By: #### B MP #### [facility] [address] [place] [address] Glucose [Mass/Vol] 87 mg/dL Normal 74 - 99 [facility] Comment on above: Performed By: #### B MP #### [facility] [address] [place] [address] HCO3 (Bld) [Moles/Vol] 27 mmol/L Normal 21 - 32 [facility] Comment on above: Performed By: #### B MP #### [facility] [address] [place] [address] Potassium [Moles/Vol] 4.7 mmol/L Normal 3.5 - 5.3 [facility] Comment on above: Performed By: #### B MP #### [facility] [address] [place] [address] Sodium [Moles/Vol] 141 mmol/L Normal 136 - 145 [facility] Comment on above: Performed By: #### B MP #### [facility] [address] [place] [address] Urea nitrogen [Mass/Vol] 19 mg/dL Normal 6 - 23 [facility] Comment on above: Performed By: #### B MP #### [facility] [address] [place] [address] CBCon 06-02-2021 Erythrocyte distribution width (RBC) [Ratio] 12.4 % Normal 11.5 - 14.5 [facility] Comment on above: Performed By: #### U A #### [facility] [address] [place] [address] Hematocrit (Bld) [Volume fraction] 43.6 % Normal 41.0 - 52.0 [facility] Comment on above: Performed By: #### U A #### [facility] [address] [place] [address] Hemoglobin (Bld) [Mass/Vol] 14.8 g/dL Normal 13.5 - 17.5 [facility] Comment on above: Performed By: #### U A #### [facility] [address] [place] [address] MCHC (RBC) [Mass/Vol] 33.9 g/dL Normal 32.0 - 36.0 [facility] Comment on above: Performed By: #### U A #### [facility] [address] [place] [address] MCV (RBC) [Entitic vol] 93 fL Normal 80 - 100 [facility] Comment on above: Performed By: #### U A #### [facility] [address] [place] [address] NUCLEATED RBC 0.0 /100 WBC Normal 0.0-0.0 [facility] Comment on above: Performed By: #### U A #### [facility] [address] [place] [address] Platelets (Bld) [#/Vol] 295 10*3/uL Normal 150 - 450 [facility] Comment on above: Performed By: #### U A #### [facility] [address] [place] [address] RBC 4.69 x10E12/L Normal 4.50 - 5.90 [facility] Comment on above: Performed By: #### U A #### [facility] [address] [place] [address] WBC (Bld) [#/Vol] 8.5 10*3/uL Normal 4.4 - 11.3 [facility] Comment on above: Performed By: #### U A #### [facility] [address] [place] [address] COAGULATION SCREENon aPTT Coag (Bld) [Time] 31 s Normal 26 - 39 [facility] Comment on above: Result Comment: Note new reference range as of 05/23/2021 at 10:00am. Performed By: #### U A #### [facility] [address] [place] [address] PT Coag (PPP) [Time] 12.2 s Normal 9.8 - 13.4 [facility] Comment on above: Result Comment: Note new reference range as of 05/23/2021 at 10:00am. Performed By: #### U A #### [facility] [address] [place] [address] PT, INR 1.1 Normal 0.9 - 1.1 [facility] Comment on above: Performed By: #### U A #### [facility] [address] [place] [address] Laboratory - Blood bankon ABO group Nom [...] 06-02-20 STAPH/MRSA SCREEN PATIENT: JAY CARR LOCATION: [facility]#: [id number] : 62 AGE: SEX: M ORDERED BY: SAL RICHARDSON SOURCE: ANTERIOR NARES COLLECTED: 06/02/21 10:59 ANTIBIOTICS AT BRAEDEN.: RECEIVED : 06/02/21 13:35 SITE: Nasal R E S U L T S STAPH/MRSA SCREEN FINAL 06/04/21 07:50 NO Staphylococcus aureus ISOLATED. Normal [facility] Comment on above: Performed By: #### S TAPH #### [facility] [address] [place] [id number] TH CHEST 2 VIEW PA AND LATon 06-02-2021 TH CHEST 2 VIEW PA AND LAT Patient Name: JAY CARR STUDY: TH CHEST 2 VIEW PA AND LAT; 06/02/2021 11:10 am INDICATION: covid follow up . COMPARISON: None. ACCESSION NUMBER(S): [id number] ORDERING CLINICIAN: SAL RICHARDSON FINDINGS: PA and [...] as stated. This study was interpreted at [facility], [place], [place]. Electronically signed by: RANJIT GONZALES MD Normal [facility] TYPE + SCREENon 06-02-2021 ABO TYPE O Normal [facility] Comment on above: Performed By: #### U A #### [facility] [address] [place] [address] RH TYPE Negative Normal [facility] Comment on above: Performed By: #### U A #### [facility] [address] [place] [address] UA MICROSCOPICon 06-02-2021 CA OXALATE CRYSTAL 3+ /HPF Abnormal [facility] Comment on above: Performed By: #### U A #### [facility] [address] [place] [address] Mucus Ql (Urine sed) 4+ /LPF Normal [facility] Comment on above: Performed By: #### U A #### [facility] [address] [place] [address] RBC 11 /HPF Abnormal 0-5 [facility] Comment on above: Performed By: #### U A #### [facility] [address] [place] [address] SQUAMOUS EPITH. CELLS 1 /HPF Normal [facility] Comment on above: Performed By: #### U A #### [facility] [address] [place] [address] WBC 1 /HPF Normal 0-5 [facility] Comment on above: Performed By: #### U A #### [facility] [address] [place] [address] URINALYSIS WITH CULTURE IF I NDICATEDon 06-02-2021 Appearance (U) HAZY Normal CLEAR [facility] Comment on above: Performed By: #### U A #### [facility] [address] [place] [address] Bilirubin Ql (U) Negative Normal NEGATIVE [facility] Comment on above: Performed By: #### U A #### [facility] [address] [place] [address] Color (U) YELLOW Normal STRAW,YELL OW [facility] Comment on above: Performed By: #### U A #### [facility] [address] [place] [address] Glucose Ql (U) Negative Normal NEGATIVE [facility] Comment on above: Performed By: #### U A #### [facility] [address] [place] [address] Hemoglobin Ql (U) Negative Normal NEGATIVE [facility] [place] Comment on above: Performed By: #### U A #### [facility] [address] [place] [address] Ketones Ql (U) Negative Normal NEGATIVE [facility] Comment on above: Performed By: #### U A #### [facility] [address] [place] [address] Leukocyte esterase Test strip Ql (U) Negative Normal NEGATIVE [facility] Comment on above: Performed By: #### U A #### [facility] [address] [place] [address] Nitrite Ql (U) Negative Normal NEGATIVE [facility] Comment on above: Performed By: #### U A #### [facility] [address] [place] [address] pH (U) 5.0 [pH] Normal 5.0 - 8.0 [facility] Comment on above: Performed By: #### U A #### [facility] [address] [place] [address] Protein Ql (U) 100 (2+) Abnormal NEGATIVE [facility] Comment on above: Performed By: #### U A #### [facility] [address] [place] [address] Specific gravity (U) [Rel density] 1.026 Normal 1.005 - 1.035 [facility] Comment on above: Performed By: #### U A #### [facility] [address] [place] [address] Urobilinogen (U) [Mass/Vol] mg/dL Normal 0.0 - 1.9 [facility] Comment on above: Performed By: #### U A #### [facility] [address] [place] [address] Color (U) YELLOW See Below [facility] [...] 05-23-2021 Lab Specimen Source Nasal, Nasopharyngeal Normal [facility] Comment on above: Order Comment: TEST CORONAVIRUS 2019, SCREEN ASYMPTOMATIC WAS CANCELLED, 07/05/2021 13:31 ptdid not have test done.. Performed By: #### U ARFX #### [facility] [address] [place] [address] Tobacco Screening.on 021 Fall risk assessment a) [...] COMPARISON: Lumbosacral spine radiographs 02/09/2021 ACCESSION NUMBER(S): [id number] ORDERING CLINICIAN: TONJA GERARDO TECHNIQUE: Sagittal and [...] degenerative disc height loss at L2-L3 with pyre-qe-dxifharp height loss at L1-L2. Conus: The lower [...] right, without spinal canal stenosis. There is mpyn-xz-rtcxkjum right and mild left neural foraminal narrowing. [...] as stated. This study was interpreted at [place], [place]. Electronically signed by: STEVE YANG MD Normal [facility] No Panel Informationon 02-09 Normal [facility] Work Phone: Please click on the link to view the study images [facility] Work Phone: SPINE, LUMBOSACRAL; MIN 4 EWSon 02-09-2021 SPINE, LUMBOSACRAL; MIN 4 VIEWS Patient Name: JAY CARR STUDY: Lumbar Spine, 4 views. INDICATION: Low back pain COMPARISON: None. ACCESSION NUMBER(S): [id number] ORDERING CLINICIAN: TONJA GERARDO FINDINGS: Grade 1 [...] Electronically signed by: JOSE GOEL MD Normal [facility] MRI L-Ext Joint w/o Contrast LTon 01-12-2021 [...] formation. No other focal left hip abnormality. [place] thanks you for the opportunity to care for your patient. Workstation ID: [id number] - [id number] FINAL REPORT Dictated By: Batsheva Brown MD 01/12/2021 08:43 Assigned Physician: Batsheva Brown MD Reviewed and Electronically Signed By: Batsheva Brown MD 01/12/2021 09:09 Transcribed by: CAROLINA 01/12/2021 08:43 Technologist: AMANDA Normal [facility] Basic metabolic 2000 panelon 11-10-2020 Calcium [Mass/Vol] 9.5 mg/dL Normal 8.5-10.6 [facility] Chloride [Moles/Vol] 104 mmol/L Normal 98-107 [facility] CO2 [Moles/Vol] 28 mmol/L Normal 21-32 [facility] Creatinine [Mass/Vol] 0.85 mg/dL Normal 0.55-1.02 [facility] Glucose [Mass/Vol] 112 mg/dL High 70-99 [facility] Potassium [Moles/Vol] 4.2 mmol/L Normal 3.5-5.1 [facility] Sodium [Moles/Vol] 142 mmol/L Normal 136-145 [facility] Urea nitrogen (BldV) [Mass/Vol] 20 mg/dL High 7.0-18.0 [facility] Urea nitrogen/Creatinine [Mass ratio] 24 mg/mg Normal [facility] CBC W Auto Differential pane l (Bld)on 11-10-2020 Basophils (Bld) [#/Vol] 0.0 thou/mcL Normal 0.0-0.2 [facility] Basophils/100 WBC (Bld) 0.5 % Normal 0-3 [facility] Differential cell count method Nom (Bld) AUTOMATED DIFFERENTIAL Normal Mo unt [facility] Eosinophils (Bld) [#/Vol] 0.1 thou/mcL Normal 0.0-0.4 [facility] Eosinophils/100 WBC (Bld) 0.9 % Normal 0-7 [facility] Erythrocyte distribution width (RBC) [Entitic vol] 13.0 % Normal 11.7-15.0 [facility] Hematocrit (Bld) [Volume fraction] 43.4 % Normal 34.0-50.0 [facility] Hemoglobin (Bld) [Mass/Vol] 15.0 g/dL Normal 11.5-17.0 [facility] Lymphocytes (Bld) [#/Vol] 1.0 thou/mcL Normal 0.7-4.5 [facility] Lymphocytes/100 WBC (Bld) 15.6 % Normal 14-46 [facility] MCH (RBC) [Entitic mass] 32.5 Picograms Normal 27.0-34.0 [facility] MCHC (RBC) [Mass/Vol] 34.6 g/dL Normal 32.0-36.0 [facility] MCV (RBC) [Entitic vol] 94.0 fL Normal 80-98 [facility] Monocytes (Bld) [#/Vol] 0.6 thou/mcL Normal 0.1-1.0 [facility] Monocytes/100 WBC (Bld) 9.8 % Normal 4-13 [facility] Neutrophils (Bld) [#/Vol] 4.7 thou/mcL Normal 1.5-7.8 [facility] Neutrophils/100 WBC (Bld) 73.2 % Normal 40-74 [facility] Platelet mean volume (Bld) [Entitic vol] 9.4 fL Normal 7.5-11.2 [facility] Platelets (Bld) [#/Vol] 220 thou/mcL Normal 140-415 [facility] RBC (Bld) [#/Vol] 4.62 x(10)6/mcL Normal 3.80-5.60 Mo [facility] WBC (Bld) [#/Vol] 6.5 thou/mcL Normal 4.0-10.5 [facility] PT Coag (PPP) [Time]on 11-10 INR Coag (Bld) [Relative time] 0.9 {INR} Normal [facility] Comment on above: Result Comment: KAMARII NG THE INDUCTION PHASE OF ORAL ANTICOAGULATION, THE INR MAY NOT REFLECT THE ANTICOAGULANT STATUS OF THE PATIENT. THERAPEUTIC RANGES FOR INR'S ARE: MOST CLINICAL SITUATIONS: INR 2.0-3.0 MECHANICAL PROSTHETIC VALVES: INR 2.5-3.5 CRITICAL: INR 5.0 Prothrombin Timeon PT Coag (PPP) [Time] 12.6 s Normal 11.9-14.6 [facility] aPTT Coag (Bld) [Time]on aPTT Coag (PPP) [Time] 38.6 s High 23.2-34.6 Mo [facility] Vital Signs Date Time Vital Sign Value Performing Clinician Facility 04-08-2023 10:38-0400 Blood Pressure Location Shun MACHADO [facility] 04-08-2023 10:38-0400 Diastolic blood pressure 82 mm[Hg] Shun MACHADO [facility] 04-08-2023 10:38-0400 Heart rate 71 /min Shun MACHADO [facility] 04-08-2023 10:38-0400 Systolic blood pressure 154 mm[Hg] Shun MACHADO [facility] 10-16-2022 14:18-0400 Blood Pressure Location Shun MACHADO [facility] 10-16-2022 14:18-0400 Diastolic blood pressure 94 mm[Hg] Shun MACHADO [facility] 10-16-2022 14:18-0400 Heart rate 72 /min Shun MACHADO [facility] 10-16-2022 14:18-0400 Systolic blood pressure 186 mm[Hg] Shun MACHADO [facility] 10-02-2022 13:36-0400 Blood Pressure Location Arely LOGAN [facility] [place] 10-02-2022 13:36-0400 Diastolic blood pressure 80 mm[Hg] Arely KRISHNAMURTHYL [facility] [place] 10-02-2022 13:36-0400 Heart rate 76 /min Arely NILL [facility] [place] 10-02-2022 13:36-0400 Respiratory rate 16 /min Arely KRISHNAMURTHYL [facility] [place] 10-02-2022 13:36-0400 Systolic blood pressure 144 mm[Hg] Arely KRISHNAMURTHYL [facility] [place] 02-15-2022 14:19-0400 Diastolic blood pressure 95 mm[Hg] MD Audrey Armstrong Work Phone: [facility] 02-15-2022 14:19-0400 Heart rate 66 /min MD Audrey Armstrong Work Phone: [facility] 02-15-2022 14:19-0400 Respiratory rate 16 /min MD Audrey Armstrong Work Phone: [facility] 02-15-2022 14:19-0400 SaO2% (BldA) [Mass fraction] 99 % MD Audrey Armstrong Work Phone: [facility] 02-15-2022 14:19-0400 Systolic blood pressure 170 mm[Hg] MD Audrey Armstrong Work Phone: [facility] 02-15-2022 13:04-0400 Inhaled oxygen flow rate 6 L/min MD Audrey Armstrong Work Phone: [facility] 02-15-2022 12:00-0400 Body weight 42 mg MD Audrey Armstrong Work Phone: [facility] 02-15-2022 10:03-0400 Body height 175.26 cm MD Audrey Armstrong Work Phone: [facility] 02-15-2022 10:03-0400 Body mass index (BMI) [Ratio] 31.3 kg/m2 MD Audrey Armstrong Work Phone: [facility] 02-15-2022 10:03-0400 Body weight 96.16 kg MD Audrey Armstrong Work Phone: [facility] 02-15-2022 07:29-0400 Body temperature 98.8 [degF] MD Audrey Armstrong Work Phone: [facility] 01-24-2022 13:59-0400 Blood Pressure Location Arely LOGAN [facility] [place] 01-24-2022 13:59-0400 Diastolic blood pressure 74 mm[Hg] Arely LOGAN [facility] [place] 01-24-2022 13:59-0400 Heart rate 72 /min Arely KRISHNAMURTHYL [facility] [place] 01-24-2022 13:59-0400 Respiratory rate 16 /min Arely KRISHNAMURTHYL [facility] [place] 01-24-2022 13:59-0400 Systolic blood pressure 140 mm[Hg] Arely NILL [facility] [place] 01-19-2022 16:45-0400 Diastolic blood pressure 84 mm[Hg] MD Audrey Armstrong Work Phone: [facility] 01-19-2022 16:45-0400 Heart rate 70 /min MD Audrey Armstrong Work Phone: [facility] 01-19-2022 16:45-0400 Respiratory rate 16 /min MD Audrey Armstrong Work Phone: [facility] 01-19-2022 16:45-0400 SaO2% (BldA) [Mass fraction] 98 % MD Audrey Armstrong Work Phone: [facility] 01-19-2022 16:45-0400 Systolic blood pressure 148 mm[Hg] MD Audrey Armstrong Work Phone: [facility] 01-19-2022 15:04-0400 Body height 177.8 cm MD Audrey Armstrong Work Phone: [facility] 01-19-2022 15:04-0400 Body mass index (BMI) [Ratio] 31.2 kg/m2 MD Audrey Armstrong Work Phone: [facility] 01-19-2022 15:04-0400 Body weight 98.8 kg MD Audrey Armstrong Work Phone: [facility] 01-19-2022 14:24-0400 Body temperature 98.6 [degF] MD Audrey Armstrong Work Phone: [facility] 09-27-2021 09:44-0400 Body temperature 97.88 [degF] Audrey Hoy Other Phone: [facility] 09-27-2021 09:44-0400 Diastolic blood pressure 74 mm[Hg] Audrey Hoy Other Phone: [facility] 09-27-2021 09:44-0400 Heart rate 89 /min Audrey Hoy Other Phone: [facility] 09-27-2021 09:44-0400 Respiratory rate 18 /min Audrey Hoy Other Phone: [facility] 09-27-2021 09:44-0400 SaO2% (BldA) [Mass fraction] 94 % Audrey Hoy Other Phone: [facility] 09-27-2021 09:44-0400 Systolic blood pressure 149 mm[Hg] Audrey Hoy Other Phone: [facility] 03-16-2021 08:34-0400 Body weight 101.86 [...] ambulatory Shun MACHADO Facility :[facility] Start: 07-16-2023 End: 07-16-2023 ambulatory GENE FREY Not Available Start: 07-09-2023 End: 07-09-2023 ambulatory STEFANIE KNIGHT Not Available Start: 04-08-2023 End: 04-09-2023 ambulatory Shun MACHADO Facility: [place] Start: 04-08-2023 End: 04-08-2023 Patient encounter procedure Shun MACHADO [facility] [place] Start: 03-12-2023 End: 03-12-2023 ambulatory ANTWAN SORIANO Facility:[facility] Start: 02-19-2023 End: 02-19-2023 ambulatory Audrey Armstrong Facility:[facility] Start: 02-19-2023 End: 02-19-2023 ambulatory MD Audrey Armstrong Work Phone: [facility] Work Phone: Start: 02-19-2023 End: 02-19-2023 Patient encounter procedure MD Audrey Armstrong Work Phone: [facility] [address] Work Phone: Start: 10-16-2022 End: 10-17-2022 ambulatory Shun MACHADO Facility: [place] Start: 10-16-2022 End: 10-16-2022 Patient encounter procedure Shun MACHADO [facility] [place] Start: 10-15-2022 End: 10-15-2022 ambulatory Audrey Armstrong Facility:[facility] Start: 10-15-2022 End: 10-15-2022 ambulatory MD Audrey Armstrong Work Phone: [facility] Work Phone: Start: 10-15-2022 End: 10-15-2022 Patient encounter procedure MD Audrey Armstrong Work Phone: [facility] [address] Work Phone: Start: 10-02-2022 End: 10-03-2022 ambulatory Arely LOGAN Facility:[facility] Start: 10-02-2022 End: 10-02-2022 Patient encounter procedure Arely Pravin LOGAN General Surgery [place]/Said [place] Start: 09-11-2022 End: 09-11-[address] AUDREY ARMSTRONG . Facility:[facility] Start: 09-05-2022 ambulatory JENI SAEED Faci lity:[facility] Start: 08-31-2022 End: 09-01-[address] ARELY LOGAN . Facility:[facility] Start: 08-27-2022 Chart Update Audrey Armstrong Work Phone: [facility] Work Phone: Start: 08-16-2022 End: 08-17-2022 ambulatory WADE NELSON Facility:[facility] Start: 07-19-2022 End: 07-20-2022 ambulatory WADE NELSON Facility:[facility] Start: 07-06-2022 End: 07-07-[address] AUDREY ARMSTRONG . Facility:[facility] Start: 06-19-2022 Encounter for preprocedural laboratory examination [facility] Start: 06-07-2022 End: 06-08-[address] AUDREY ARMSTRONG . Facility:[facility] Start: 06-04-2022 End: 06-05-[address] AUDREY ARMSTRONG . Facility:[facility] Start: 06-04-2022 End: 06-05-2022 Encounter for preprocedural laboratory examination DR AUDREY ARMSTRONG . Facility:[facility] Start: 05-31-2022 Encounter for preprocedural cardiovascular examination [facility] Start: 05-25-2022 End: 05-26-2022 ambulatory JENI SAEED Facility:[facility] Start: 05-25-2022 End: 05-26-2022 Encounter for preprocedural cardiovascular examination JENI SAEED Facility:[facility] Start: 05-23-2022 End: 05-23-[address] AUDREY ARMSTRONG . Facility:[facility] Start: 05-23-2022 End: 05-23-2022 ambulatory MD Audrey Armstrong Work Phone: [facility] Work Phone: Start: 05-23-2022 End: 05-23-2022 Patient encounter procedure MD Audrey Armstrong Work Phone: [facility] [address] Start: 05-02-2022 amb[address] Mr. Kenton Lawson Fa cility:[facility] Start: 05-02-2022 Office outpatient vi sit 25 minutes Audrey Armstrong Work Phone: BY-Tdppfxdgbncn-Kczrcph 5FL DO Work Phone: Start: 03-30-2022 Encounter for genera l adult medical examination without abnormal findings DR AUDRYE ARMSTRONG . [facility] Start: 03-28-2022 End: 03-29-[address] AUDREY ARMSTRONG . Facility:[facility]1 Start: 03-28-2022 End: 03-29-2022 Encounter for general adult medical examination without abnormal findings DR AUDREY ARMSTRONG . Facility:[facility] Start: 02-15-2022 End: 02-15-2022 Admission to same day surgery center MD Audrey Armstrong Work Phone: [facility] [place] Start: 02-14-2022 End: 02-15-2022 ambulatory JENI SAEED Facility:[facility] Start: 02-13-2022 End: 02-13-2022 Patient encounter procedure MD Audrey Armstrong Work Phone: [facility]Pre-Surgical Testing Start: 01-30-2022 End: 01-30-2022 Patient encounter procedure Shun MACHADO [facility] [place] Start: 01-29-2022 End: 01-30-[address] AUDREY ARMSTRONG . Facility:[facility]1 Start: 01-29-2022 ambulatory Audrey Armstrong Fac ility:[facility] Start: 01-29-2022 Office outpatient vi sit 15 minutes Audrey Armstrong Work Phone: WW-Apeuhsylllqa-Lwoipcq 5FL DO Work Phone: Start: 01-29-2022 ambulatory Mr. Suarez Renny Miller cility:[id number] Start: 01-24-2022 End: 01-24-2022 Patient encounter procedure Arely Costello DOREEN General Surgery Nill/Said [place] Start: 01-19-2022 End: 01-19-2022 Admission to same day surgery center MD Audrey Armstrong Work Phone: [facility] [place] Start: 01-17-2022 End: 01-17-2022 Patient encounter procedure MD Audrey Armstrong Work Phone: [facility] Start: 01-11-2022 End: 01-12-[address] SHUN MACHADO Facility:[facility]1 Start: 01-09-2022 End: 01-09-[address] LAURY ZEPEDA Facility:[facility]1 Start: 01-05-2022 End: 01-06-[address] AUDREY ARMSTRONG . Facility:[facility] Start: 12-27-2021 End: 12-28-[address] AUDREY ARMSTRONG . Facility:[facility] Start: 12-09-2021 End: 12-10-[address] AUDREY ARMSTRONG . Facility:[facility] Start: 11-09-2021 Chart Update Audrey Armstrong Work Phone: FM-Grucekzaovyi-Nvqfle 210 Work Phone: Start: 11-08-2021 Postop follow up vis it related to original px uAdrey Armstrong Work Phone: CT-Qlclfteocube-Zefklrf 5FL DO Work Phone: Start: 11-08-2021 POV, Provider: Kenton Lawson, Status: Pen, Time: 11:00 AM Audrey Armstrong Work Phone: SS-Rxfhvjklvmjr-Xtxjif 210 Work Phone: Start: 11-08-2021 ambulatory Audrey Armstrong Fac ility:[facility] Start: 11-07-2021 AUDIT Audrey Armstrong Work Phone: TJ-Wsndivzpmxkc-Jwiyxp 210 Work Phone: Start: 09-26-2021 End: 09-27-2021 Evaluation and management of inpatient Sal Richardson [facility] Dong [id number] Rm [id number] Start: 09-19-2021 AUDIT Audrey Armstrong Work Phone: [facility]Hfljkvxorhovsk-Snq for Perioperative Med Work Phone: Start: 09-19-2021 ambulatory Audrey Armstrong Fac ility:[facility] Start: 09-19-2021 Encounter for blood typing Dr. SAL RICHARDSON [facility] Start: 09-19-2021 Encounter for preprocedural laboratory examination Dr. SAL RICHARDSON [facility] Start: 08-23-2021 Office outpatient vi sit 40 minutes Audrey Armstrong Work Phone: SG-Djzexmisjfsf-[place] ng-[facility] Work Phone: Start: 08-23-2021 ambulatory Audrey Rivera ility:[facility] Start: 08-03-2021 Office outpatient vi sit 25 minutes Audrey Armstrong Work Phone: FW-Yydwlgjrovyc-Bzwiyx 210 Work Phone: Start: 08-03-2021 ambulatory Referral Self Facility: [id number] Start: 06-21-2021 End: 06-21-2021 ambulatory Audrey Armstrong Facility:[facility] Start: 06-02-2021 AUDIT No PCP None [facility]operative [facility] Work Phone: Start: 06-02-[address] SAL RICHARDSON Facility:[facility] Start: 06-02-[address] SAL RICHARDSON Facility:[facility] Start: 06-02-2021 Encounter for other preprocedural examination Dr. SAL RICHARDSON [facility] Start: 06-02-2021 Encounter for preprocedural cardiovascular examination Dr. SAL RICHARDSON [facility] Start: 05-03-2021 Office outpatient vi sit 40 minutes No PCP None BN-Hbtswcfrdoka-Tzwyepu ng[facility] Work Phone: Start: 03-16-2021 NPV, Provider: Nazario Holloway, Status: Pen, Time: 8:30 AM No PCP None [facility] Work Phone: Start: 03-16-2021 Office outpatient ne w 30 minutes No PCP None [facility] Work Phone: Start: 03-16-2021 Patient encounter procedure No PCP None [facility] Work Phone: Start: 03-13-2021 Office consultation new/estab patient 80 min No PCP None [facility] Work Phone: Start: 03-10-2021 Chart Update No PCP None [facility] [address] Work Phone: Start: 03-06-2021 Telephone encounter No PCP None [facility] Work Phone: Start: 02-12-2021 Chart Update No PCP None [facility] Work Phone: Start: 02-09-2021 Office outpatient ne w 45 minutes No PCP None YG-Znhfgaqarcrz-Lkolxj 210 Work Phone: Start: 02-08-2021 AUDIT No PCP None [facility] [address] Work Phone: Procedures Date Procedure Procedure Detail Performing Clinician Start: 06-07-2022 Fusion of Right Tars al Joint with Synthetic Substitute, Open Approach JENI SAEED Start: 06-07-2022 Transfer Right Foot Tendon, Open Approach JENI SAEED Start: 03-28-2022 PSA screening JENI CONNOR Comment on above: Performed By: #### P [facility] #### [facility] [address] [place] [address] Dr. Carolyn King Start: 02-15-2022 Cystoscopy MD Audrey Armstrong Work Phone: Start: 02-15-2022 Diagnostic radiograp hy of abdomen MD Audrey Armstrong Work Phone: Start: 01-19-2022 Extracorporeal shock wave lithotripsy MD Audrey Armstrong Work Phone: Start: 01-19-2022 Diagnostic radiograp hy of abdomen MD Audrey Armstrong Work Phone: Start: 01-19-2022 Extracorporeal shock wave lithotripsy of calculus of kidney Shun MACHADO Start: 01-19-2022 Lithotripsy Arely NI LL Start: 01-17-2022 Plain chest X-ray MD Pacheco Work Phone: Start: 09-19-[address] ASIA RICHARDSON Comment on above: Performed By: #### T +S #### [facility] [address] [place] [address] Start: 06-02-[address] ASIA RICHARDSON Comment on above: Performed By: #### U A #### [facility] [address] [place] [address] Arthroplasty of knee Arely NILL Colonoscopy Arely [...] Kenton Lawson, Status: Pen, Time: 9:30 AM XQ-Dndirzyutkzr-Zwakuvx 5FL DO Work Phone: Start: 05-23-2022 Hemolytic complement CH50 level [facility] Start: 05-02-2022 FUV, Provider: Kenton Lawson, Status: Pen, Time: 9:00 AM FUV, Provider: Kenton Lawson, Status: Pen, Time: 9:00 AM LI-Xphgvgjphedh-Dydnkiw 5FL DO Work Phone: Start: 02-15-2022 End: 02-15-2022 [facility] Work Phone: Start: 02-15-2022 Cystoscopy OR Cysto/Retro/Stent/Ston e/Holmium Laser (Right) [facility] Start: 02-15-2022 Diagnostic radiograp hy of abdomen XR KUB [facility] Start: 02-15-2022 End: 02-15-2022 Admission to same day surgery center Departed Surgical Day Care [facility] [place] Start: 02-13-2022 End: 02-13-2022 Patient encounter procedure Departed Clinical [facility] Xxr-Jgr-Yeqyormv Testing Start: 01-19-2022 End: 01-19-2022 [facility] Work Phone: Start: 01-15-2022 FUV, Provider: Kenton Lawson, Status: Pen, Time: 10:00 AM FUV, Provider: Kenton Lawson, Status: Pen, Time: 10:00 AM OA-Mqcuvgxpster-Ltvdrft 5FL DO Work Phone: Start: 11-08-2021 Patient encounter procedure [facility] Start: 09-27-2021 End: 09-28-2022 Sodium Chloride 0.9% Injectable Flush Peripheral Line ; via Peripheral LineVolume = 10 mL IntraVenous Flush Every 8 Hours and as Needed Start: 27-Sep-2021 End: 27-Sep-2022 Ordered: 27-Sep-[address] [facility] Start: 09-27-2021 End: 09-28-2022 oxyCODONE Immediate Release 10 mg Oral Tablet Every 4 Hours ; Tablet (OXYIR, ROXICODONE)DOSE = 10 mg Oral Every 4 Hours, PRN Pain - Severe (7-10) Start: 27-Sep-2021 End: 27-Sep-2022 Ordered: 27-Sep-[address] [facility] Start: 09-26-2021 End: 09-27-2022 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 immediately Start: 09-26-2021 [facility] Sal Richardson, Status: Pen, Time: 7:30 AM [facility], Provider: Sal Richardson, Status: Pen, Time: 7:30 AM KI-Qcvmoitsxlgrmz-Dpa for Perioperative Med Work Phone: Start: 08-30-2021 FUV, Provider: Sal Richardson, Status: Pen, Time: 11:15 AM FUV, Provider: Sal Richardson, Status: Pen, Time: 11:15 AM TS-Olqrpuumtuoe-Gxwbgm 210 Work Phone: Start: 08-30-2021 FUV, Provider: Sal Richardson, Status: Pen, Time: 11:00 AM FUV, Provider: Sal Richardson, Status: Pen, Time: 11:00 AM SR-Poflsguettrp-Zolsvu 210 Work Phone: Start: 06-09-2021 [facility] Provider: Sal Richardson, Status: Pen, Time: 7:30 AM [facility], Provider: Sal Richardson, Status: Pen, Time: 7:30 AM TC-Dylobqhkqnlspc-Ava for Perioperative Med Work Phone: Start: 03-22-2021 [facility], Provider: Nazario Holloway, Status: Pen, Time: 9:40 AM [facility], Provider: Nazario Holloway, Status: Pen, Time: 9:40 AM [facility] Work Phone: Start: 03-13-2021 FUV, Provider: Sal Richardson, Status: Pen, Time: 2:15 PM FUV, Provider: Sal Richardson, Status: Pen, Time: 2:15 PM OF-Xzehnqouxbun-Cekpes 210 Work Phone: Complement C3 [Mass/volume] in Serum or Plasma [facility] Work Phone: Complement C3 [Mass/volume] in Serum or Plasma [facility] Complement C4 [Mass/volume] in Serum or Plasma [facility] Work Phone: Complement C4 [Mass/volume] in Serum or Plasma [facility] Hemolytic complement CH50 level [facility] Work Phone: Patient referral [facility] Work Phone: Immunizations Immunization Date Immunization Notes Care Provider Angela ye 03-27-2022 influenza virus vaccine, unspecified formulation Arely LOGAN [facility] [place] 11-21-2021 SARS-CoV-2 mRNA (ioxpjjwbsue-fkbb-djwe ose) vaccine Arely LOGAN [facility] 09-22-2021 SARS-CoV-2 (COVID-19 ) mRNA BNT-162b2 vax Arely LOGAN [facility] 06-26-2021 Pfizer-BioNTech COVID-19 Vacc 30 MCG/0.3ML Intramuscular Suspension Audrey Armstrong Work Phone: [facility] 05-01-2021 influenza virus vaccine, unspecified formulation Shun MACHADO [facility] 05-01-2021 Influenza, injectabl e, Madin Charissa Canine Kidney, preservative free, quadrivalent Audrey Armstrong Work Phone: FJ-Khlkbbvmyznt-Sf sman 210 Work Phone: 10-06-2020 Pfizer-BioNTech COVID-19 Vacc 30 MCG/0.3ML Intramuscular Suspension No PCP None [facility] 03-23-2021 Pfizer-BioNTech COVID-19 Vacc 30 MCG/0.3ML Intramuscular Suspension No PCP None [facility] 06-24-2020 SARS-CoV-2 (COVID-19 ) mRNA BNT-162b2 vax Arely LOGAN [facility] [place] 05-04-2020 influenza virus vaccine, unspecified formulation Shun MACHADO [facility] 05-04-2020 Influenza, injectabl e, Madin [place] Canine Kidney, preservative free, quadrivalent No PCP None RV-Lppafsizwzkf-Iu sman 210 Work Phone: 05-04-2020 pneumococcal conjuga te vaccine, 13 valent No PCP None [facility] 04-06-2020 influenza virus vaccine, unspecified formulation Shun MACHADO [facility] 04-06-2020 influenza, seasonal, injectable No PCP None RX-Mhgovlcjpgav-Uy sman 210 Work Phone: 10-25-2011 hepatitis A vaccine, adult dosage No PCP None [facility] 10-25-2011 hepatitis B vaccine, pediatric or pediatric/adolescent dosage No PCP None [facility] 03-30-2011 hepatitis A vaccine, adult dosage No PCP None [facility] 03-30-2011 hepatitis B vaccine, pediatric or pediatric/adolescent dosage No PCP None [facility] 02-15-2011 hepatitis B vaccine, pediatric or pediatric/adolescent dosage No PCP None [facility] 01-20-1998 hepatitis B vaccine, adult dosage No PCP None [facility] 02-24-1997 hepatitis B vaccine, adult dosage No PCP None [facility] 11-11-1996 hepatitis B vaccine, adult dosage No PCP None [facility] 11-02-1996 TD(adult) unspecifie d formulation; Translations: [Td(adult) unspecified formulation] No PCP None [facility] Maddy NEGATED: Highlighted row has not occurred!04-15-2019 influenza virus vaccine, unspecified formulation Arely [facility] [place] Payers Date Payer Category Payer Unknown [id number] 2022 Medicare [id number] 2022 Self-pay [id number] 1960 Unknown [id number] 2.16. 840.1.486221.3.579.2.356 1961 Unknown [id number] 2.16. 840.1.605306.3.579.2.356 1961 Unknown [id number] 2.16. 840.1.366142.3.579.2.356 1961 Unknown [id number] 2.16. 840.1.120107.3.579.2.356 1961 Unknown [id number] 2.16. 840.1.888195.3.579.2.356 1961 Unknown [id number] 2.16. 840.1.827920.3.579.2.356 1961 Unknown [id number] 2.16. 840.1.718061.3.579.2.356 1961 Unknown [id number] 2.16. 840.1.249882.3.579.2.356 1961 Unknown [id number] 2.16. 840.1.455300.3.579.2.356 1961 Unknown [id number] 2.16. 840.1.766323.3.579.2.356 1961 Unknown [id number] 2.16. 840.1.884462.3.579.2.356 1961 Unknown [id number] 2.16. 840.1.590986.3.579.2.356 1961 Unknown [id number] 2.16. 840.1.421137.3.579.2.356 1961 Unknown [id number] 2.16. 840.1.008502.3.579.2.356 1961 Unknown [id number] 2.16.84 0.1.541010.3.579.2.593 1961 Unknown [id number] 2.16.84 0.1.492211.3.579.2.593 1961 Unknown [id number] 2.16.84 0.1.823596.3.579.2.593 1961 Unknown [id number] 2.16.84 0.1.144514.3.579.2.593 1961 Unknown [id number] 2.16.84 0.1.572086.3.579.2.593 1961 Unknown [id number] 2.16.84 0.1.892118.3.579.2.593 1961 Unknown [id number] 2.16.84 0.1.808376.3.579.2.593 1961 Unknown [id number] 2.16.84 0.1.145014.3.579.2.593 1961 Unknown [id number] 2.16.84 0.1.707810.3.579.2.593 1961 Unknown [id number] 2.16.84 0.1.765205.3.579.2.593 1961 Unknown [id number] 2.16.84 0.1.867588.3.579.2.593 1961 Unknown [id number] 2.16.84 0.1.320876.3.579.2.593 1961 Unknown [id number] 2.16.84 0.1.581235.3.579.2.593 1961 Unknown [id number] 2.16.84 0.1.335882.3.579.2.593 1961 Unknown [id number] 2.16.84 0.1.606089.3.579.2.593 1961 Unknown [id number] 2.16.84 0.1.511566.3.579.2.593 1961 Unknown [id number] 2.16.84 0.1.152947.3.579.2.593 1961 Unknown [id number] 2.16.84 0.1.689826.3.579.2.593 1961 Unknown [id number] 2.16.84 0.1.364183.3.579.2.593 1961 Unknown [id number] 2.16.8 40.1.040341.3.579.2.727 1961 Unknown [id number] 2.16.8 40.1.782353.3.579.2.727 1961 Unknown [id number] 2.16.8 40.1.790118.3.579.2.727 1961 Unknown [id number] 2.16.8 40.1.559630.3.579.2.727 1961 Unknown [id number] 2.16.84 0.1.009467.3.579.2.1259 1961 Unknown [id number] 2.16.84 0.1.630565.3.579.2.1259 1959 Unknown [id number] 1959 Unknown [id number] Unknown Unknown [facility] [id number] Unknown [id number] Unknown [id number] 2.16.8 40.1.308287.3.579.2.531 Unknown [id number] 2.16.8 40.1.831881.3.579.2.531 Unknown [id number] 2.16.8 40.1.602295.3.579.2.531 Social History Date Type Detail Facility [facility] Tobacco smoking consumption unknown [facility] Start: 01-24-2022 End: 04-08-2023 Tobacco smoking status Never smoked tobacco (finding) [facility] Work Phone: Tobacco smoking status Never [facility] [place] Sex Assigned At Male [facility] [place] Start: 1960 Sex Assigned At Male F [facility] Medical Equipment Procedure Code Equipment Code Equipment Origin al Text Equipment Identifier Dates Cystoscopy, with ureteral calculus manipulation and stent placement Polymeric ureteral stent [id number] FDA Start: 02-15-2022 Cystoscopy, with ureteral calculus manipulation and stent placement Polymeric ureteral stent ()[id number] FDA Start: 01-19-2022 Goals Date Patient Goal Desired Activity /State Functional Status Date Assessment Result Facility 04-08-2023 Functional Status N/A [facility] 10-16-2022 Functional Status N/A [facility] 10-02-2022 Functional Status N/A [facility] 01-30-2022 Functional Status N/A [facility] 01-24-2022 Functional Status N/A [facility] [place] Functional observable [facility] Mental Status Date Assessment Result Facility 09-26-2021 Cognitive functions 27-Sep-19 2212:26 [facility] Clinical Notes 10-31-2020 to 04-08-2023 [...] include: ?8 oz (237 mL) of milk, dmnyjyu-bjmbvdzplykf-cfxlz milk, and calcium-fortifiedfruit juice. Calcium-fortified means that [...] ?Spinach (cooked), rhubarb, beets, sweet potatoes, and Tanzanian chard. ?Peanuts. ?Potato chips, british virgin islander fries, and baked potatoes with skin on. ?Nuts and nut products. ?Chocolate. If you regularly take a diuretic medicine, make sure to eat at least 1 or 2 servings of fruits or vegetables that are high in potassium each day. These include: ?Avocado. ?Banana. ?Fenton, prune, carrot, or tomato juice. ?Baked potato. [...] magnesium, fish oil, or vitamin B6. Take dydq-gnm-syohqqb and prescription medicines only as told by [...] Casseroles. Pizza. Lasagna. Frozen meals. Potato chips. Zambian fries. The items listed above may not [...] provider. Document Revised: 02/19/2022 Document Reviewed: 02/19/2022 [employer] Patient Education 2022 [employer]. Follow Up Care 10/16/2022 15:04:55 With:CHRIS RIVERA, Shun Mirza, URL Address: [facility] [employer] [place] [id number]- When: Unknown [facility] [place] 03-12-2023 Note HNO ID: [id number] Author: Antwan Soriano MD Service: ? Author [...] No PCP: Audrey Armstrong MD [address] [facility] [phone] FELLOW / RESIDENT: No fellow or resident assisted in this office visit. Antwan Soriano MD [facility] 10-16-2022 Hospital Discharge instructions Patient Education [...] include: ?8 oz (237 mL) of milk, keguwxh-fpjenuaujmhu-gkbym milk, and calcium-fortifiedfruit juice. Calcium-fortified means that [...] ?Spinach (cooked), rhubarb, beets, sweet potatoes, and Tanzanian chard. ?Peanuts. ?Potato chips, british virgin islander fries, and baked potatoes with skin on. ?Nuts and nut products. ?Chocolate. If you regularly take a diuretic medicine, make sure to eat at least 1 or 2 servings of fruits or vegetables that are high in potassium each day. These include: ?Avocado. ?Banana. ?Fenton, prune, carrot, or tomato juice. ?Baked potato. [...] magnesium, fish oil, or vitamin B6. Take vuog-dle-phjbvoq and prescription medicines only as told by [...] Casseroles. Pizza. Lasagna. Frozen meals. Potato chips. Zambian fries. The items listed above may not [...] provider. Document Revised: 02/19/2022 Document Reviewed: 02/19/2022 [employer] Patient Education 2022 [employer]. Follow Up Care 02/19/2022 10:35:10 With:CHRIS RIVERA, Shun Mirza, URL Address: [address] [place], [place] [id number]- When: Unknown [facility] [place] 08-16-2022 Note PROCEDURE: XR FOOT R T [...] authenticated by: LAURY ZEPEDA Date: 2022-08-16 18:55 [facility] 07-19-2022 Note PROCEDURE: XR FOOT R T [...] authenticated by: LAURY ZEPEDA Date: 2022-07-19 12:30 [facility] 07-06-2022 Note PROCEDURE: XR FOOT R T [...] authenticated by: LAURY ZEPEDA Date: 2022-07-06 15:41 [facility] 06-07-2022 Note PROCEDURE: XR ANKLE RT MIN [...] by: BANDAR SAENZ Date: 2022-06-07 14:32 [facility] 06-07-2022 Note PROCEDURE: XR ANKLE RT MIN [...] authenticated by: BANDAR SAENZ Date: 2022-06-07 14:32 [facility] 01-30-2022 Hospital Discharge instructions Patient Education 01/30/2022 [...] include: ?Spinach. ?Rhubarb. ?Beets. ?Potato chips and british virgin islander fries. ?Nuts. If you regularly take a diuretic medicine, make sure to eat at least 1 2 fruits or vegetables high in potassium each day. These include: ?Avocado. ?Banana. ?Fenton, prune, carrot, or tomato juice. ?Baked potato. [...] Casseroles. Pizza. Lasagna. Frozen meals. Potato chips. Zambian fries. Summary You can reduce your risk [...] 10/05/2011 Document Revised: 09/30/2019 Document Reviewed: 05/21/2017 [employer] Patient Education 2020 [employer] Follow Up Care 01/24/2022 12:02:31 With:CHRIS RIVERA, Shun Mirza, URL Address: Josy SIFUENTES [address] [address]- When: Unknown [facility] [place] 09-27-2021 Note Send Summary: Discharge Summary Providers: Provider RoleProvider Name AracelisKim RichardsonSal Bagley Douglas M Note Recipients: Audrey Armstrong MD - [id number] [] Discharge: Summary: Admission Date: .26-Sep-2021 06:01:00 [...] floor. 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 AT [place] [id number] [place] [address] [facility] ON 10/18/2021 AT 0930 WITH KENTON SANTIAGO. REHAB FACILITIES OR HOME CARE MAY REMOVE ANTONIO OR SUTURES. Wound Site: BACK (Lumbar Spine) Wound Type: surgical incision Change Dressing: daily Cleanse With: soap and water Cover With: abdominal dressing Tape With: paper tape Instructions: no lotions, creams, or tub soaks Other Instructions: PLEASE HAVE ANTONIO REMOVED IN 3 WKS. AT [place] [id number] [place] [address] [facility] ON 10/18/2021 AT 0930 WITH KENTON SANTIAGO. [...] to Schedule in: 6 weeks, PLEASE CALL [phone] TO SCHEDULE YOUR APPOINTMENT FOR 5-6 WEEKS FOLLOWING YOUR SURGERY. Location: [facility] [place] [id number] [place] [address] [address] [facility] [address], Phone Number: Office: (September,./[place]) - [phone] Discharge Medications: Home Medication NIFEdipine 30 mg [...] tab(s) orally every (more content not included)... [facility] 09-27-2021 Note Rehab: Info: Mode of Treatmentoccupational therapy; co-evaluation with PT for pt safety and to optimize pt's therapeutic potential Time IN10:00 Time OUT10:27 Total Treatment Mlsgsln50 Patient in ... at end of sessionchair; alarm on Communicated with ... at end of sessionbedside nurse Patient Effortexcellent Symptoms Noted During/After Treatmentnone Patient Profile Reviewedyes Onset of Illness/Injury or Date of [id number] Reason for ReferralXLIF L3/4, 4/5;2. Navigated percutaneous [...] WFL Mobility/Tone: Bed Mobility Assessment/Interventionssupine to sit Cyjdvp-wn-Bfy Stirling (Bed Mobility)standby assist; verbal cues Assistive Device (Bed Mobility)bed rails Comment, Bed MobilityVia log rolling technique Transfer Assessment/Interventionssit to stand transfer; stand to sit transfer Sit-Stand Stirling (Transfers)standby assist; verbal cues Sit-Stand Assistive Device (Transfers)no AD Stand-Sit Stirling (Transfers)standby assist; verbal cues Stand-Sit Assistive Device (Transfers)no AD Safety Issues Impacting Function (Mobility)insight into deficits/self awareness Impairments Impacting Function (Mobility)balance; pain ActivityPt completed functional household distance with SBA for safety (pt declined use of device) ADL: BADL Assessment/Interventionlower body dressing; grooming; toileting Stirling Level (Lower Body Dressing)pants/bottoms; moderate assist (50% patient effort) Position (Lower Body Dressing)edge-of-bed sitting Stirling Level (Grooming)supervision Position (Grooming)standing Comment (Grooming)Standing oral care at sink Stirling Level (Toileting)supervision Position (Toileting)standing Motor: Sitting, Static (Balance)good balance Sitting, Dynamic (Balance)good balance Acm-oy-Txbrh (Balance)fair balance Standing, Static (Balance)fair balance Standing, [...] Total Score17 Short Term Goals: Transfer: Established [id number] Transfer: Transfer Type Hvocevb-ws-eknjq/ysgox-zm-cnz; (more content not included)... [facility] 09-26-2021 Note Post Operative Note: PreOp Diagnosis: Lumbar stenosis, spondylolisthesis L3-5 Post-Procedure Diagnosis: Lumbar stenosis, spondylolisthesis L3-5 Procedure: ALIF via extreme lateral approach L3/4, L4/5 with cage x 2 PSF with instrumentation L3-5 Surgeon: Dr. Richardson Resident/Fellow/Other Hoop Machine Operator: Renny Steinberg Estimated Blood Loss (mL): 150 [...] Last Updated: 04-Oct-2021 15:17 by Sal Richardson) [facility] 09-26-2021 History of Present illness Narrative Jay is a pleasant 62-year-old upmjj-tmhq-thainsmx male who presents today with his for [...] not corrected for spelling or grammatical errors. OE-Kphuwjtnaybo-Dqpjcus 5FL DO Work Phone: 09-26-2021 Note History [...] the note. I personally evaluated the patient [id number] Electronic Signatures: Sal Richardson) (Signed 29-Sep-2021 11:39) Authored: Note Completion Co-Signer: History of Present Illness, Allergies, Home Medication Review, Impression/Procedure, ERAS, Physical Exam, Consent, Note Completion Timothy Steinberg (Resident)) (Signed 26-Sep-2021 05:59) Authored: History of Present Illness, Allergies, Home Medication Review, Impression/Procedure, ERAS, Physical Exam, Consent, Note Completion Last Updated: 29-Sep-2021 11:39 by Sal Richardson) [facility] 08-25-2021 Reason for referral (narrative) Reason for Referral: XLIF L3/4, 4/5;2. Navigated percutaneous PSIF L3-5 [facility] 06-21-2021 Note PROCEDURE DETAILS Preoperative Diagnosis: cervical stenosis, HNP with myelopathy C5-7 Postoperative Diagnosis: cervical stenosis, HNP with myelopathy C5-7 Surgeon: Dr. Richardson Resident/Fellow/Other Hoop Machine Operator: Skip/ Katalina Procedure: anterior cervical discectomy/ decompression, [...] Last Updated: 27-Jun-2021 14:14 by Sal Richardson) [facility] 06-21-2021 Note History & Physical [...] the note. I personally evaluated the patient [id number] Electronic Signatures: Sal Richardson) (Signed 27-Jun-2021 13:45) Authored: Note Completion Co-Signer: History & Physical Reviewed, ERAS, Consent, Note Completion Cheikh August (Resident)) (Signed 21-Jun-2021 06:23) Authored: History & Physical Reviewed, ERAS, Consent, Note Completion Last Updated: 27-Jun-2021 13:45 by Sal Richardson) [facility] 12-22-2020 History of Present illness [...] not corrected for spelling or grammatical errors. [facility] [address] Work Phone: 10-31-2020 History of Present illness Narrative 60 yr old male with back pain. 10/31 -[facility] Work Phone: 10-31-2020 History of Present illness [...] multiple foot surgeries and total knee replacement. -[facility] Work Phone: Evaluation + Plan note Future Appointments Appointment Date:01/30/2022 09:15:00 AM Scheduled Provider:Shun MACHADO MD Location:[facility] Appointment Type:URO Office Visit Appointment Date:07/31/2022 02:00:00 PM Scheduled Provider:Arely LOGAN MD Location:[facility] Appointment Type:[place] [address] General [facility] [place] Evaluation + Plan note Future Appointments Appointment Date:07/31/2022 02:00:00 PM Scheduled Provider:Arely LOGAN MD Location:[facility] Appointment Type:[place] [address] [facility] Evaluation + Plan note Future Appointments Appointment Date:10/16/2022 02:15:00 PM Scheduled Provider:Shun MACHADO MD Location:[facility] Appointment Type:URO Office Visit Future Scheduled TestsXR Abdomen 1 View 02/19/22 [facility] Evaluation + Plan note Future Appointments Appointment Date:02/22/2023 10:45:00 AM Scheduled Provider:Shun MACHADO MD Location:[facility] Appointment Type:URO Office Visit Future Scheduled TestsXR Abdomen 1 View 02/19/22 [facility] Evaluation + Plan note Future Appointments Appointment Date:04/13/2024 09:15:00 AM Scheduled Provider:Shun MACHADO MD Location:[facility] Appointment Type:URO Office Visit [facility] Evaluation note Neurological: alert and oriented c8Zpobmanwsvlqrqg: Spine Exam:Dressings CDINo bruising, swelling, or erythemaL1: [...] appearing, no acute distress resting in bed [facility] Evaluation note No assessment information availa [facility] Work Phone: History of Present illness Narrative [...] not corrected for spelling or grammatical errors. EN-Dzqcggqsqjfr-Ixbzrkz 5FL DO Work Phone: Hospital course Narrative No data available for this section [facility] Discharge instructions Activity:activity as tolerated and [...] HAVE ANTONIO REMOVED IN 3 WKS. AT [place] [address] [facility] 5TH FLOOR ON 10/18/2021 AT 0930 WITH KENTON SANTIAGO.REHAB FACILITIES OR HOME CARE MAY REMOVE ANTONIO OR SUTURES.Wound Care 2:Wound Site: BACK (Lumbar Spine)Wound Type: surgical incisionChange Dressing: dailyCleanse With: soap and waterCover With: abdominal dressingTape With: paper tapeInstructions: no lotions, creams, or tub soaksOther Instructions: PLEASE HAVE ANTONIO REMOVED IN 3 WKS. AT [place] [address] [facility] 5TH FLOOR ON 10/18/2021 AT 0930 [...] Appointment 1:Physician/Dept/Service: Dr. Sal Richardson/ Orthopaedic Surgery/ SpineReryan for Referral: Postoperative Follow-Up AppointmentCall to Schedule in: 6 weeks, PLEASE CALL [phone] TO SCHEDULE YOUR APPOINTMENT FOR 5-6 WEEKS FOLLOWING YOUR SURGERY.Location: [place] [address] [facility] 5TH FLOOR OR [address] [facility] [address], [phone] Number: Office: (September,./[place]) - [phone]: Please Call Emmie Gallagher RN at [phone] For Any Post-Op Questions [facility] Hospital Discharge instructions No data available for this section General Surgery [place] Progress note No data available for this section General Surgery [employer] Summary Purpose Family History No Family History [...] weeks. He lives far away, in the [facility]. If he gets better with the injections, perhaps we can watch bfmt-lzt-vaw and this is obviously what we are [...] weeks. He lives far away, in the [facility]. If he gets better with the injections, perhaps we can watch cmgk-tyz-lpb and this is obviously what we are [...] spine from 04/12/2021 is available from the [facility] on a CD. This shows evidence of [...] section and content) DATE CREATED AUTHOR 01/14/2021 [facility] DATE CREATED AUTHOR AUTHOR'S ORGANIZ ATION 03/11/2021 [facility] DATE CREATED AUTHOR AUTHOR'S ORGANIZ ATION 08/06/2021 [facility] DATE CREATED AUTHOR AUTHOR'S ORGANIZ ATION 05/03/2022 [facility] DATE CREATED AUTHOR AUTHOR'S ORGANIZ ATION 05/05/2022 [facility] DATE CREATED AUTHOR AUTHOR'S ORGANIZ ATION [facility]/30/2022 [facility] DATE CREATED AUTHOR AUTHOR'S ORGANIZ ATION 03/10/2023 [facility] DATE CREATED AUTHOR AUTHOR'S ORGANIZ ATION 03/14/2023 [facility] DATE CREATED AUTHOR AUTHOR'S ORGANIZ ATION 04/10/2023 [facility] DATE CREATED AUTHOR AUTHOR'S ORGANIZ ATION 07/17/2023 [facility] [employer] EPIC <item> Privacy Markings (unrecogniz ed section and [...] Gary Armstrong MD Primary Care Provider Active Dmitriy De Leon MD Attending Provider Active Team Status: Inactive Member Role Status Dates Audrey Armstrong MD Primary Care Provider Active Hudosn De Leon MD Attending Provider Active Goals [...] BE BASED ON THE PRIMARY CLINICAL RECORDS. [employer] [facility]. provides no warranty or guarantee of the accuracy or completeness of information in this document.
== END 2023-07-17 08:43 | disposition home or self-care (01) ==
LOC: CT 08:42
PROVIDERS: PCP Family Medicine; Visit Provider Podiatrist Foot & Ankle Surgery
DX: T84.84XA Pain due to internal orthopedic prosthetic devices, implants and grafts, initial encounter (principal); M96.0 Pseudarthrosis after fusion or arthrodesis
CPT/HCPCS: 73700

== ENCOUNTER 2023-11-20 09:15 | Outpatient (OUT) | payer MEDICARE, SELFPAY ==
--- NOTE | 2023-11-20 | XR_ITS ---
The [address] [address] Patient Name: RG SIMEON MRN: [id number] date: 1960 Sex: M Assigned Patient Location: Current Patient Location: Accession/Order Number: [id number] Exam Date: 11/20/2023 09:18 Report Date: 11/20/2023 10:28 At the request of: JENI SAEED Procedure: XR foot RT min 3V PROCEDURE: XR ankle RT min 3V, XR foot RT min 3V COMPARISON: 12/19/2022 HISTORY: RIGHT ANKLE PAIN FINDINGS: BONES:Stable postsurgical changes with a strut across the medial foot extending from the first metatarsal through the medial cuneiform navicular into the talus. Lucency surrounding the strut appears unchanged. No mechanical failure. Subtalar fusion. Moderate to severe degenerative changes with joint space narrowing and marginal osteophyte formation. SOFT TISSUES:Negative. No visible soft tissue swelling. EFFUSION:None visible. OTHER: Negative. XR/XR foot RT min 3V IMPRESSION: Stable degenerative and postsurgical changes of the foot and ankle Electronically authenticated by: BANDAR SAENZ Date: 11/20/2023 10:28
--- NOTE | 2023-11-20 | XR_ITS ---
The [address] [address] Patient Name: RG SIMEON MRN: [id number] date: 1960 Sex: M Assigned Patient Location: Current Patient Location: Accession/Order Number: [id number] Exam Date: 11/20/2023 09:18 Report Date: 11/20/2023 10:28 At the request of: JENI SAEED Procedure: XR ankle RT min 3V PROCEDURE: XR ankle RT min 3V, XR foot RT min 3V COMPARISON: 12/19/2022 HISTORY: RIGHT ANKLE PAIN FINDINGS: BONES:Stable postsurgical changes with a strut across the medial foot extending from the first metatarsal through the medial cuneiform navicular into the talus. Lucency surrounding the strut appears unchanged. No mechanical failure. Subtalar fusion. Moderate to severe degenerative changes with joint space narrowing and marginal osteophyte formation. SOFT TISSUES:Negative. No visible soft tissue swelling. EFFUSION:None visible. OTHER: Negative. XR/XR ankle RT min 3V IMPRESSION: Stable degenerative and postsurgical changes of the foot and ankle Electronically authenticated by: BANDAR SAENZ Date: 11/20/2023 10:28
== END 2023-11-20 09:16 | disposition home or self-care (01) ==
LOC: EC 09:15
PROVIDERS: PCP Family Medicine; Visit Provider Podiatrist Foot & Ankle Surgery
DX: M19.071 Primary osteoarthritis, right ankle and foot (principal); M79.671 Pain in right foot; Z98.890 Other specified postprocedural states
CPT/HCPCS: 73610; 73630

== ENCOUNTER 2023-11-26 07:49 | Outpatient (OUT) | payer MEDICARE, SELFPAY ==
--- NOTE | 2023-11-26 07:52 | CT_ITS ---
The [address] [address] Patient Name: RG SIMEON MRN: [id number] date: 1960 Sex: M Assigned Patient Location: CT Current Patient Location: Accession/Order Number: [id number] Exam Date: 11/26/2023 08:08 Report Date: 11/27/2023 09:04 At the request of: JENI SAEED Procedure: CT foot RT wo con EXAMINATION: CT foot RT wo con HISTORY: Midfoot Degenerative Joint Disease COMPARISON: XR foot right 11/20/2023, CT foot right 08/31/2022 TECHNIQUE: Multi-planar CT images were created without and/or with IV contrast according to examination type. Dose reduction techniques were achieved by using automated exposure control and/or adjustment of mA and/or kV according to patient size and/or use of iterative reconstruction technique. FINDINGS: BONES: Stable mechanical fusion of medial aspect of the midfoot and the posterior talocalcaneal joint without evidence of hardware fracture or acute bone fracture. Mildly increased lucency surrounding the distal locking screw of the medial antonio within the base of the first metatarsal. Increased area of lucency surrounding the proximal end of the antonio within the talus, 27 x 16 x 15 mm. SOFT TISSUES: No significant or suspicious soft tissue swelling. EFFUSION: None visible. OTHER: Negative. CT/CT foot RT wo con IMPRESSION: 1. Increased area of lucency/loss of bone within the talus surrounding the proximal end of the antonio fusing the medial aspect of the midfoot consistent with bone resorption/hardware movement. 2. Thin area of lucency within base of first metatarsal surrounding distal end of antonio suggesting movement. While this is mild, it is new since prior CT study. 3. No hardware fracture or appreciable bone fracture. Electronically authenticated by: LAURY ZEPEDA Date: 11/27/2023 09:04
== END 2023-11-26 07:50 | disposition home or self-care (01) ==
LOC: CT 07:49
PROVIDERS: PCP Family Medicine; Visit Provider Podiatrist Foot & Ankle Surgery
DX: M19.071 Primary osteoarthritis, right ankle and foot (principal)
CPT/HCPCS: 73700

== ENCOUNTER 2023-12-25 09:54 | Outpatient (OUT) | payer MEDICARE, SELFPAY ==
--- NOTE | 2023-12-25 10:02 | ECG_ITS ---
[facility] Test Date: 2023-12-25 Pat Name: RG SIMEON Department: Room: - Gender: Male [employer]: : 1960 Requested By: JENI SAEED Order Number: [id number] Reading MD: IAN DUNBAR Measurements Intervals [place] Rate: 65 P: 55 MT: 186 QRS: 3 QRSD: 119 T: 16 QT: 425 QTc: 444 Interpretive Statements SINUS RHYTHM MODERATE INTRAVENTRICULAR CONDUCTION DELAY [110+ ms QRS DURATION] Compared to ECG 05/25/2022 10:55:06 No significant changes Electronically Signed On 12-27-2023 18:04:25 EDT by IAN DUNBAR
--- NOTE | 2023-12-25 11:13 | PM.PRESUREVA ---
History of Present Illness History of Present Illness Chief complaint: valgus deformity right ankle Narrative: Patient presents for preadmission testing. The patient states he has right ankle pain and instability. He had previous right ankle surgery and continues to have pain which is worse after standing on his feet and walking for long periods of time. He does use a brace which only gives some support and he just feels unbalanced. He also has lupus and osteoarthritis and he does take hydroxychloroquine as well as diclofenac which helps with his overall pain. He denies new injury, trauma, numbness, tingling, or any other complaints. Review of Systems ROS Narrative REVIEW OF SYSTEMS: Negative except as stated in HPI, ten or more systems reviewed. Constitutional: No fever, chills, weakness ENT: No sore throat or epistaxis Cardiovascular: No edema, chest pain, palpitations, or activity intolerance Respiratory: No shortness of breath, cough, or wheezing Gastrointestinal: No abdominal pain, constipation, diarrhea, or vomiting Genitourinary: No dysuria or hematuria Neurological: No numbness, tingling, weakness, or headache Psychiatric: No mood changes [facility] Medical History (Updated 12/25/23 @ 11:10 by Aleax Molina NP) Raynauds disease ?I73.00 - Raynaud's syndrome without gangrene (ICD-10) Eczema ?L30.9 - Dermatitis, unspecified (ICD-10) Cervical disc disease with myelopathy ?M50.00 - Cervical disc disorder with myelopathy, unspecified cervical region (ICD-10) BPH with obstruction/lower urinary tract symptoms ?N40.1 - Benign prostatic hyperplasia with lower urinary tract symptoms (ICD-10) ?N13.8 - Other obstructive and reflux uropathy (ICD-10) Shoulder pain ?M25.519 - Pain in unspecified shoulder (ICD-10) Nonunion after arthrodesis ?M96.0 - Pseudarthrosis after fusion or arthrodesis (ICD-10) Acquired valgus deformity of left foot ?M21.072 - Valgus deformity, not elsewhere classified, left ankle (ICD-10) Retained orthopedic hardware ?Z96.9 - Presence of functional implant, unspecified (ICD-10) Peroneal tendinitis ?M76.70 - Peroneal tendinitis, unspecified leg (ICD-10) Valgus deformity of foot ?M21.079 - Valgus deformity, not elsewhere classified, unspecified ankle (ICD-10) Ankle instability ?M25.373 - Other instability, unspecified ankle (ICD-10) Posterior tibial tendon dysfunction ?M76.829 - Posterior tibial tendinitis, unspecified leg (ICD-10) Skin cancer ?C44.90 - Unspecified malignant neoplasm of skin, unspecified (ICD-10) Back pain ?M54.9 - Dorsalgia, unspecified (ICD-10) Osteoarthritis ?M19.90 - Unspecified osteoarthritis, unspecified site (ICD-10) Arthritis ?M19.90 - Unspecified osteoarthritis, unspecified site (ICD-10) Lupus ?M32.9 - Systemic lupus erythematosus, unspecified (ICD-10) Kidney stones ?N20.0 - Calculus of kidney (ICD-10) GERD (gastroesophageal reflux disease) ?K21.9 - Gastro-esophageal reflux disease without esophagitis (ICD-10) Postoperative hypertension ?I97.3 - Postprocedural hypertension (ICD-10) Surgical History (Updated 12/25/23 @ 10:52 by Alexa Molina NP) History of lumbar surgery ?Z98.890 - Other specified postprocedural states (ICD-10) Status post cervical spinal arthrodesis ?Z98.1 - Arthrodesis status (ICD-10) Status post surgical removal of malignant neoplasm of skin ?Z98.890 - Other specified postprocedural states (ICD-10) History of spinal surgery ?Z98.890 - Other specified postprocedural states (ICD-10) History of ankle surgery ?Z98.890 - Other specified postprocedural states (ICD-10) History of foot surgery ?Z98.890 - Other specified postprocedural states (ICD-10) History of arthroscopy of knee ?Z98.890 - Other specified postprocedural states (ICD-10) History of arthroplasty of knee ?Z96.659 - Presence of unspecified artificial knee joint (ICD-10) Family History (Updated 12/25/23 @ 10:31 by Alexa Molina NP) Other Family history of hypertension Family history of lung cancer Family history of stroke Social History (Updated 12/25/23 @ 10:23 by Alexa Molina NP) Within the past year, how often did you have a drink containing alcohol: never Score interpretation: A score less than 4 is consistent with normal alcohol consumption. Smoking status: Never smoker Non-prescribed substance use: denies use Previous occupational history: Retired Highest level of school completed/degree received: high school graduate Meds Home Medications and Allergies Home Medications ?Medication ?Instructions ?Recorded ?Confirmed ?Type ascorbic acid (vitamin C) 250 mg 250 mg PO DAILY 12/25/23 12/25/23 History tablet biotin 1 mg capsule 1 mg PO DAILY 12/25/23 12/25/23 History cholecalciferol (vitamin D3) 125 5,000 unit PO DAILY 12/25/23 12/25/23 History mcg (5,000 unit) capsule cranberry 500 mg capsule 500 mg PO DAILY 12/25/23 12/25/23 History cyanocobalamin (vitamin B-12) 1,000 mcg PO DAILY 12/25/23 12/25/23 History 1,000 mcg tablet,extended release diclofenac sodium 75 mg 75 mg PO Q12H 12/25/23 12/25/23 History tablet,delayed release hydroxychloroquine 200 mg tablet 200 mg PO BID 12/25/23 12/25/23 History irbesartan 300 mg tablet 300 mg PO QNOON 12/25/23 12/25/23 History nifedipine 30 mg tablet,extended 30 mg PO DAILY 12/25/23 12/25/23 History release 24 hr pantoprazole 40 mg tablet,delayed 40 mg PO QNOON 12/25/23 12/25/23 History release zinc 50 mg capsule 50 mg PO DAILY 12/25/23 12/25/23 History Allergies Allergy/AdvReac Type Severity Reaction Status Date / Time Penicillins Allergy Unknown Verified 12/25/23 10:16 Exam Narrative Exam Narrative: Constitutional: Awake, alert, comfortable, well-appearing, nontoxic, interactive, vital signs as charted Head: Normocephalic, atraumatic Neck: Supple, normal appearance, normal range of motion, no meningeal signs, no lymphadenopathy Respiratory: No respiratory distress, breath sounds clear Cardiovascular: Regular rate and rhythm, strong and regular heart tones Musculoskeletal: Diffuse right ankle tenderness with palpation, range of motion limited due to discomfort, good capillary refill, sensation intact Skin: No rashes or induration, no lesions, only visible skin inspected Neuro: No neurological deficits, normal sensation Psychiatric: Oriented ?3, normal affect Assessment and Plan Assessment and Plan (1) Arthritis: (2) Posterior tibial tendon dysfunction: (3) Ankle instability: (4) Valgus deformity of foot: (5) Peroneal tendinitis: (6) Retained orthopedic hardware: (7) Nonunion after arthrodesis: Plan Right medial displacement calcaneal osteotomy, excision of nonunion with revision of fusion of medial column, removal of hardware, soft tissue balancing, bone graft scheduled with Dr. Schaffer January 09, 2024.
== END 2023-12-25 09:55 | disposition home or self-care (01) ==
LOC: PST 09:55
PROVIDERS: PCP Family Medicine; Visit Provider Podiatrist Foot & Ankle Surgery
DX: Z01.810 Encounter for preprocedural cardiovascular examination (principal); Z01.818 Encounter for other preprocedural examination; M21.071 Valgus deformity, not elsewhere classified, right ankle; M96.0 Pseudarthrosis after fusion or arthrodesis
CPT/HCPCS: 93005; G0463

== ENCOUNTER 2024-01-09 06:21 | Day surgery (SDC) | payer MEDICARE, SELFPAY ==
[2023-12-25 10:45] VITALS: BP 160/82; PULSE 66; TEMP 36.6; O2SAT 97; BMI 33.6
[2024-01-09] VITALS (8 sets, daily range): BP systolic 99–147; BP diastolic 60–90; PULSE 70–100; TEMP 36.4–36.8; O2SAT 93–97; BMI 32.6
--- NOTE | 2024-01-09 | FL_ITS ---
[address] [address] Patient Name: RG SIMEON MRN: [id number] date: 1960 Sex: M Assigned Patient Location: [facility] Current Patient Location: [facility] Accession/Order Number: [id number] Exam Date: 01/09/2024 11:11 Report Date: 01/13/2024 08:47 At the request of: JENI SAEED Procedure: FL fluoroscopy <1hr NON-READ EXAM: FL fluoroscopy <1hr NON-READ HISTORY: TECHNIQUE: FINDINGS: Please see Operative Report. Electronically authenticated by: RADIOLOGIST NO Date: 01/13/2024 08:47
--- OUTSIDE RECORDS SUMMARY | 2024-01-09 06:25 | XMS_ITS | CCD ---
Author Organization [facility] Care Team Providers Care Inspecting Machine Adjuster Name Role Phone None, No PCP Unavailable Unavailable Unavailable Unavailable Arturo Audrey M Unavailable Audrey Armstrong Unavailable Sal Richardson Unavailable Kenton Lawson Randy Unavailable Unavailabl Audrey Raines Primary Care Physician MD Audrey Armstrong Primary Care Provider [phone] MD Shun Machado Attending Provider [phone] DEBRA, Dr. SAL COLEMAN Attending Unavail able Shevcmartin, Mr. Suarez Attending Unavailabl e Audrey Armstrong Primary Care Unavailable Hoy Audrey Arely Primary Care Unavailable Shevchik, Mr. Suarez Attending Unavailabl e Audrey Armstrong Arely Primary Care Unavailable Renny, Mr. Suarez Attending Unavailabl e Self, Referral Referring Unavailable Anthonyy Audrey Arely Primary Care Unavailable Dr. SAL RICHARDSON Attending Unavail able Shevchik, Mr. Suarez Attending Unavailabl e HoyAudrey Arely Primary Care Unavailable Shevchik, Mr. Suarez Referring Unavailabl e Shevchik, Mr. Suarez Referring Unavailabl e Hoy, Audrey Arely Primary Care Unavailable Shevchik, Mr. Suarez Attending Unavailabl e Shevchik, Mr. Suarez Referring Unavailabl e Shevchik, Mr. Suarez Attending Unavailabl e AtnhonyyAudrey Arely Primary Care Unavailable Hoy, Audrey Arely Primary Care Unavailable UNKNOWN, UNKNOWN Referring Unavailable DEBRA, Dr. SAL COLEMAN Attending Unavail able Audrey Armstrong Primary Care Unavailable DEBRA, Dr. SAL COLEMAN Attending Unavail able DEBRA, Dr. SAL COLEMAN Referring Unavail able DEBRA, Dr. SAL COLEMAN Admitting Unavail able DEBRA, Dr. SAL COLEMAN Attending Unavail able Arturo Audreyharriet Mcgee Primary Care Unavailable Audrey Armstrong Primary Care Unavailable DEBRA, Dr. SAL COLEMAN Attending Unavail able DEBRA, Dr. SAL COLEMAN Referring Unavail able DEBRA, Dr. SAL COLEMAN Admitting Unavail able DEBRA, Dr. SAL COLEMAN Attending Unavail able Arturo Audreyharriet Mcgee Primary Care Unavailable DEBRA, Dr. SAL COLEMAN Attending Unavail able MD Audrey Armstrong Primary Care Provider [phone] MD Dmitriy De Leon Attending Provider MD Audrey Armstrong Primary Care Provider [phone] MD Dmitriy De Leon Attending Provider [phone] JENI SAEED Admitting Unavailable ZIEBER, DR LAURY Costello Consulting Unavailable HOY ., DR VENTURA Primary Care Unavailable HIGHLANDER, JENI Albrecht Attending Unavailable JENI SAEED Consulting Unavailable HOY ., DR VENTURA Primary Care Unavailable HIGHLANDERJENI Consulting Unavailable JENI SAEED Admitting Unavailable JENI SAEED Attending Unavailable NILL ., DR MCGEE Admitting Unavailable NILL ., DR MCGEE Attending Unavailable ZIEBER, DR LAURY Costello Consulting Unavailable HOY ., DR VENTURA Primary Care Unavailable NILL ., DR MCGEE Consulting Unavailable HOY ., DR VENTURA Primary Care Unavailable HIGHLANDER, JENI Albrecht Admitting Unavailable HIGHLANDER, JENI Albrecht Attending Unavailable ZIEBER, DR LAURY Costello Consulting Unavailable HIGHLANDERJENI Consulting Unavailable HOY ., DR VENTURA Admitting [...] Unavailable COOK, DR SHUN Mirza Consulting Unavailable LONG [place]LEY, DR BANDAR Sheppard Consulting Unavailable COOK, DR SHUN Mirza Consulting Unavailable COOK, DR SHUN Mirza Admitting Unavailable COOK, DR SHUN Mirza Attending Unavailable HOY ., DR VENTURA Primary Care Unavailable [place], DR BANDAR Sheppard Consulting Unavailable HOY ., [...] Primary Care Unavailable OMAR, WADE Attending Unavailable ZIEBER, DR LAURY Costello Consulting Unavailable OMAR, WADE Admitting Unavailable ARTURO ., DR VENTURA Primary Care Unavailable WADE NELSON Consulting Unavailable MD Audrey Armstrong Primary Care Provider [phone] MD Hudson De Leon Attending Provider [phone] ANTWAN SORIANO Attending Unavailable AUDREY ARMSTRONG Primary Care Unavailable Shun MACHADO Attending Unavailable Shun MACHADO Attending Unavailable Shun MACHADO Attending Unavailable rAely LOGAN Attending Unavailable MD Audrey Armstrong Primary Care Provider [phone] TAD Manriquez Attending Provider STEFANIE KNIGHT Attending Unavailable HURST, NABILA Referring Unavailable KELBLEY, GENE Attending Unavailable HURST, NABILA Referring Unavailable KELBLEY, GENE Attending Unavailable HURST, NABILA Referring Unavailable KELBLEY, GENE Attending Unavailable HURST, NABILA Referring Unavailable BLACKSTONSTEFANIE T Attending Unavailable HURST, NABILA Referring Unavailable KELBLEY, GENE Attending Unavailable HURST, NABILA Referring Unavailable PB MAY Attending Unavailable HURST, NABILA Referring Unavailable BLACKSTONSTEFANIE T Attending Unavailable HURST, NABILA Referring Unavailable MD Audrey Armstrong Primary Care Provider [phone] TAD Manriquez Attending Provider Hudson De Leon Attending Unavailable Hudson De Leon Admitting Unavailable Audrey Armstrong Primary Care Unavailable Sabrina Manriquez Attending Unavailable Sabrina Manriquez Admitting Unavailable Audrey Armstrong Primary Care Unavailable ObSabrina almeida Attending Unavailable Sabrina Manriquez Admitting Unavailable Audrey Armstrong Primary Care Unavailable Allergies Allergy Classification Reported Allergen(s) Allergy Type Date of Onset Reaction(s) Facility (17 sources) Penicillins; Translations: [Penicillins] Allergy to drug (finding) 7 Rash [facility] Work Phone: (6 sources) Penicillin; Translations: [penicillin] Drug Allergy Eruption of skin (disorder) [facility] [place] (2 sources) oxyCODONE Drug Allergy 1 [facility] (2 sources) Penicillins Drug allergy (disorder) 7 [facility] (1 source) Penicillins Drug allergy (disorder) 2 [facility] Repository Medications Current Medications Medication Drug [...] Status: Ordered ciprofloxacin 500 mg oral tablet (16 sources) Quinolone Antimicrobial Start: 02-15-2022 take 1 [...] dairy products, calcium, zinc, and/or iron-containing products irbesartan 300 mg oral tablet (11 sources) Angiotensin 2 Receptor Jennifer Start: 01-16-2022 take 300 mg by mouth once daily at lunch Irbesartan Active 300 MG PO Daily with lunch January 17, 2022 12:00am NIFEdipine 30 mg oral tablet (13 sources) Dihydropyridine Calcium Channel Jennifer Start: 01-19-2022 take 1 tablet by mouth once daily NIFEdipine 30 mg ER Tab 30 mg = 1 tab(s), Oral, Daily, Refills(s) 0 Start Date: 01/19/22 Status: Ordered Start: 01-17-2022 take 30 mg by mouth once daily in the morning Nifedipine Active 30 MG PO Every morning January 17, 2022 12:00am pantoprazole 40 mg delayed release oral tablet (13 sources) Proton Pump Inhibitor Start: 04-15-2019 take 40 mg by mouth once daily Pantoprazole Active 40 MG PO Daily January 17, 2022 12:00am potassium citrate 10 meq extended release oral tablet (2 sources) Start: 10-16-2022 End: 10-11-2023 potassium CITRATE 10 mEq ER Tab 20 mEq, 2 tab(s), Oral, BID for 30 day(s), 120 tab(s), Refill(s) 11, [facility], 170, cm, 10/16/22 14:31:00 EDT, Height/Length [...] Start: 08-03-2021 take 1 tablet by lianna every six hours as needed for muscle spasms tiZANidine HCl - 4 MG Oral Tablet TAKE 1 TABLET EVERY 6 HOURS NEEDED FOR SPASM. Quantity: 92 Refills: 2 Ordered: 03-Aug-2021 Sal Richardson MD Start : 03-Aug-2021 Active Completed/Discontinued Medications Medication Drug Class(es) Dates Sig (Normalized) Sig (Original) acetaminophen 325 mg / HYDROcodone bitartrate 5 mg oral tablet (8 sources) Opioid Agonist Start: 01-19-2022 End: 02-15-2022 take 1 tablet by mouth every four to six hours Hydrocodone-Acetami nophen Discontinued 1 TAB PO EVERY 4-6 HOURS 10 January 19, 2022 February 152 7:49am chlorhexidine gluconate 40 mg/ml medicated liquid soap (17 sources) Start: 09-19-2021 Hibiclens 4 % External Liquid USE DIRECTED. Quantity: 1 Refills: 0 Ordered: 19-Sep-2021 Maik SHELTONN-NASEEM, Jacquie Start : 19-Sep-2021 Active Start: 06-02-2021 Hibiclens 4 % External Liquid USE DIRECTED as preop shower Quantity: 1 Refills: 0 Ordered: 02-Jun-2021 barbara WOOD BORER-NASEEM Azucena Start : 02-Jun-2021 Active diclofenac sodium 0.01 [...] Nazario Holloway MD Start : 16-Mar-2021 Active hydroxychloroquine sulfate 200 mg oral tablet (13 sources) Antimalarial, Antirheumatic Agent Start: 04-15-2019 End: 02-15-2022 take 200 mg by mouth twice daily Hydroxychloroquine Discontinued 200 MG PO Twice daily January 17, 2022 12:00am February 15, 2022 7:49am ketorolac tromethamine 10 mg oral tablet (8 sources) Nonsteroidal Anti-inflammatory Drug, Cyclooxygenase Inhibitor Start: [...] Active oxybutynin chloride 5 mg oral tablet (8 sources) Cholinergic Muscarinic Antagonist Start: 01-19-2022 End: [...] activity., # 30 tab(s), Refills(s) 3, Pharmacy: [facility] #[facility], 170, cm, 10/16/22 14:31:00 EDT, Height/Length Dosing, 104.3, kg, 10/16/22 14:31:00 EDT, Weight Dosing Start Date: 10/16/22 Status: Ordered tamsulosin hydrochloride 0.4 mg oral capsule (8 sources) alpha-Adrenergic Jennifer Start: 01-17-2022 End: 02-15-2022 [...] COUGH, UNSPECIFIED; Translations: [COUGH, UNSPECIFIED] Onset: 09-15-2022 Unclassified (1 source) 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; Translations: [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] Onset: 07-18-2023 Viral infection (1 source) COVID-19; Translations: [COVID-19] [...] 09-27-2021 Episodic Other aftercare (2 sources) Other fpc (current) drug therapy; Translations: [Other longitudinal float operator (current) drug therapy] Onset: 06-02-2021 Episodic Other [...] Test Name Value Interpretation Reference Range Facility Alanine aminotransferase [En zymatic activity/volume] in Serum or PlasmaOrdered By: Sabrina Manriquez on 11-19-2023 ALT [Catalytic activity/Vol] 28 U/L 7-52 [facility] Albumin [Mass/volume] in Ser um or Plasma by Bromocresol green (BCG) dye binding methoOrdered By: Sabrina Manriquez on 11-19-2023 Albumin BCG dye [Mass/Vol] 4.1 g/dL 3.5-5.7 [facility] Alkaline phosphatase [Enzyma tic activity/volume] in Serum or PlasmaOrdered By: Sabrina Manriquez on 11-19-2023 ALP [Catalytic activity/Vol] 70 U/L 34-104 [facility] Aspartate aminotransferase [ Enzymatic activity/volume] in Serum or PlasmaOrdered By: Sabrina Manriquez on 11-19-2023 AST [Catalytic activity/Vol] 29 U/L 13-39 [facility] Automated epithelial cells c ount in urine sediment (number/area)Ordered By: Sabrina Manriquez on 11-19-2023 Epithelial cells Auto (Urine sed) [#/Area] None seen [HPF] 0-2 [facility] Bacteria [Presence] in Urine by AutomatedOrdered By: Sabrina Manriquez on 11-19-2023 Bacteria Auto Ql (U) None seen [HPF] None Seen [facility] Basophils Auto (Bld) [#/Vol] Ordered By: Sabrina Manriquez on 11-19-2023 Basophils (Bld) [#/Vol] 0.0 10*3/uL 0.0-0.2 [facility] Basophils/100 WBC Auto (Bld) Ordered By: SabrinaHolzer Hospitalelle on 11-19-2023 Basophils/100 WBC (Bld) 0.7 % . [facility] Bilirubin Test strip Ql (U)O rdered By: [facility] on 11-19-2023 Bilirubin Ql (U) Negative Negative [facility] Bilirubin.total [Mass/volume ] in Serum or PlasmaOrdered By: aSbrina Manriquez on 11-19-2023 Bilirubin [Mass/Vol] 0.5 mg/dL 0.3-1.0 [facility] C reactive protein [Mass/vol ume] in Serum or PlasmaOrdered By: Sabrina Manriquez on 11-19-2023 CRP [Mass/Vol] < 0.5 mg/dL 0.0-0.5 [facility] C-Reactive Proteinon 024 CRP [Mass/Vol] mg/L Normal 0.0-0.5 [facility] Comment on above: Result Comment: PERF ORMED BY: [facility] [address] [place] [place] [address] PATHOLOGIST BRAKE MECHANIC KRISTIE BAKER M.D. Performed By: #### C 4, C3, CH50 #### [facility] , #### CBC, CMP, ESR, ADDONUAPLUS, CRP #### [facility] [address] [place] [address] Calcium [Mass/volume] in Ser um or PlasmaOrdered By: Sabrina Manriquez on 11-19-2023 Calcium [Mass/Vol] 9.1 mg/dL 8.6-10.3 [facility] Carbon dioxide, total [Moles /volume] in Serum or PlasmaOrdered By: Sabrina Manriquez on 11-19-2023 CO2 [Moles/Vol] 30.2 mmol/L 21.0-31.0 [facility] Chloride [Moles/volume] in S lenny or PlasmaOrdered By: Sabrina Manriquez on 11-19-2023 Chloride [Moles/Vol] 105 mmol/L 98-107 [facility] Color Auto (U)Ordered By: Emily Montiel on 11-19-2023 Color (U) Yellow Yellow [facility] Complement C3on 11-19-2023 Complement C3 129 mg/dL Normal 82-167 [facility] Comment on above: Result Comment: Perf ormed at: - [facility] [address] [id number] [employer] Can[employer] Installer: Derek Toscano PhD, Phone: [phone] Performed By: #### C 4, C3, CH50 #### [facility] , #### CBC, CMP, ESR, ADDONUAPLUS, CRP #### [facility] [address] [place] [address] Complement C4on 11-19-2023 Complement C4 20 mg/dL Normal 12-38 [facility] Comment on above: Result Comment: PERF ORMED BY: [place] [address] PATHOLOGIST BRAKE MECHANIC KRISTIE BAKER M.D. Performed By: #### C 4, C3, CH50 #### [facility] , #### CBC, CMP, ESR, ADDONUAPLUS, CRP #### [facility] [address] Complement Total (CH50)on Complement Total (CH50) 48 Normal >41 [facility] Comment on above: Result Comment: Age Male [...] out of range values. Performed at: - [facility] [id number] [employer] Installer: Derek Toscano PhD, Phone: [phone] PERFORMED BY: [place] [address] PATHOLOGIST BRAKE MECHANIC KRISTIE BAKER M.D. Performed By: #### C 4, C3, CH50 #### [facility] , #### CBC, CMP, ESR, ADDONUAPLUS, CRP #### [address] Complete Blood Count Auto Di ffon 11-19-2023 Basophils (Bld) [#/Vol] 0.0 10*3/uL Normal 0.0-0.2 [facility] Comment on above: Performed By: #### C 4, C3, CH50 #### [facility] , #### CBC, CMP, ESR, ADDONUAPLUS, CRP #### [address] Basophils/100 WBC (Bld) 0.7 % Normal . [facility] Comment on above: Performed By: #### C 4, C3, CH50 #### [facility] , #### CBC, CMP, ESR, ADDONUAPLUS, CRP #### [address] Eosinophils (Bld) [#/Vol] 0.1 10*3/uL Normal 0.0-0.45 [facility] Comment on above: Performed By: #### C 4, C3, CH50 #### [facility] , #### CBC, CMP, ESR, ADDONUAPLUS, CRP #### [address] Eosinophils/100 WBC (Bld) 1.6 % Normal . [facility] Comment on above: Performed By: #### C 4, C3, CH50 #### [facility] , #### CBC, CMP, ESR, ADDONUAPLUS, CRP #### [address] Erythrocyte distribution width (RBC) [Ratio] 13.7 % Normal 12.0-14.8 [facility] Comment on above: Performed By: #### C 4, C3, CH50 #### [facility] , #### CBC, CMP, ESR, ADDONUAPLUS, CRP #### [address] Hematocrit (Bld) [Volume fraction] 44.2 % Normal 38.8-50.0 [facility] Comment on above: Performed By: #### C 4, C3, CH50 #### [facility] , #### CBC, CMP, ESR, ADDONUAPLUS, CRP #### [address] Hemoglobin (Bld) [Mass/Vol] 15.0 g/dL Normal 13.0-17.0 [facility] Comment on above: Performed By: #### C 4, C3, CH50 #### [facility] , #### CBC, CMP, ESR, ADDONUAPLUS, CRP #### [address] Lymphocytes (Bld) [#/Vol] 1.1 10*3/uL Normal 1.00-4.8 [facility] Comment on above: Performed By: #### C 4, C3, CH50 #### [facility] , #### CBC, CMP, ESR, ADDONUAPLUS, CRP #### [address] Lymphocytes/100 WBC (Bld) 18.8 % Normal . [facility] Comment on above: Performed By: #### C 4, C3, CH50 #### [facility] , #### CBC, CMP, ESR, ADDONUAPLUS, CRP #### [address] MCH (RBC) [Entitic mass] 32.3 pg Normal 27.5-35.2 [facility] Comment on above: Performed By: #### C 4, C3, CH50 #### [facility] , #### CBC, CMP, ESR, ADDONUAPLUS, CRP #### [address] MCV (RBC) [Entitic vol] 95.2 fL Normal 83.5-101 [facility] Comment on above: Performed By: #### C 4, C3, CH50 #### [facility] , #### CBC, CMP, ESR, ADDONUAPLUS, CRP #### [address] Mean Corpuscular HGB Conc 34.0 g/dL Normal 32.5-35.6 [facility] Comment on above: Performed By: #### C 4, C3, CH50 #### [facility] , #### CBC, CMP, ESR, ADDONUAPLUS, CRP #### [address] Monocytes (Bld) [#/Vol] 0.5 10*3/uL Normal 0.0-0.8 [facility] Comment on above: Performed By: #### C 4, C3, CH50 #### [facility] , #### CBC, CMP, ESR, ADDONUAPLUS, CRP #### [place] [address] [place] Monocytes/100 WBC (Bld) 8.0 % Normal . [facility] Comment on above: Performed By: #### C 4, C3, CH50 #### [facility] , #### CBC, CMP, ESR, ADDONUAPLUS, CRP #### [address] Neutrophils (Bld) [#/Vol] 4.1 10*3/uL Normal 1.8-7.7 [facility] Comment on above: Performed By: #### C 4, C3, CH50 #### [facility] , #### CBC, CMP, ESR, ADDONUAPLUS, CRP #### [address] Neutrophils/100 WBC (Bld) 70.9 % Normal . [facility] Comment on above: Performed By: #### C 4, C3, CH50 #### [facility] , #### CBC, CMP, ESR, ADDONUAPLUS, CRP #### [place] [address] [place] NRBC% 0.1 /100{WBC} Normal 0-0.5 [facility] Comment on above: Performed By: #### C 4, C3, CH50 #### [facility] , #### CBC, CMP, ESR, ADDONUAPLUS, CRP #### [address] Platelet mean volume (Bld) [Entitic vol] 9.3 fL Normal 6.6-10.1 [facility] Comment on above: Performed By: #### C 4, C3, CH50 #### [facility] , #### CBC, CMP, ESR, ADDONUAPLUS, CRP #### [place] [address] [place] Platelets (Bld) [#/Vol] 220 10*3/uL Normal 150-450 [facility] Comment on above: Performed By: #### C 4, C3, CH50 #### [facility] , #### CBC, CMP, ESR, ADDONUAPLUS, CRP #### [address] RBC (Bld) [#/Vol] 4.64 10*6/uL Normal 3.90-5.60 [facility] Comment on above: Performed By: #### C 4, C3, CH50 #### [facility] , #### CBC, CMP, ESR, ADDONUAPLUS, CRP #### [address] WBC (Bld) [#/Vol] 5.7 10*3/uL Normal 4.1-10.5 [facility] Comment on above: Performed By: #### C 4, C3, CH50 #### [facility] , #### CBC, CMP, ESR, ADDONUAPLUS, CRP #### [address] Comprehensive Metabolic Pane tanika 11-19-2023 Albumin [Mass/Vol] 4.1 g/dL Normal 3.5-5.7 [facility] Comment on above: Performed By: #### A DDONUAPLUS, CBC, CMP, CRP, ESR #### [facility] [address] [place] [address] #### C4, C3, CH50 #### [facility] , Albumin/Globulin [Mass ratio] 1.6 {ratio} Normal [facility] Comment on above: Performed By: #### A DDONUAPLUS, CBC, CMP, CRP, ESR #### [facility] [address] [place] [address] #### C4, C3, CH50 #### [facility] , ALP [Catalytic activity/Vol] 70 U/L Normal 34-104 [facility] Comment on above: Performed By: #### A DDONUAPLUS, CBC, CMP, CRP, ESR #### [place] [address] [place] #### C4, C3, CH50 #### [facility] , ALT [Catalytic activity/Vol] 28 U/L Normal 7-52 [facility] Comment on above: Performed By: #### A DDONUAPLUS, CBC, CMP, CRP, ESR #### [address] #### C4, C3, CH50 #### [facility] , Anion gap [Moles/Vol] 9.2 mmol/L Normal 6.0-15.0 [facility] Comment on above: Performed By: #### A DDONUAPLUS, CBC, CMP, CRP, ESR #### [place] [address] [place] #### C4, C3, CH50 #### [facility] , AST [Catalytic activity/Vol] 29 U/L Normal 13-39 [facility] Comment on above: Performed By: #### A DDONUAPLUS, CBC, CMP, CRP, ESR #### [address] #### C4, C3, CH50 #### [facility] , Bilirubin [Mass/Vol] 0.5 mg/dL Normal 0.3-1.0 [facility] Comment on above: Performed By: #### A DDONUAPLUS, CBC, CMP, CRP, ESR #### [place] [address] [place] #### C4, C3, CH50 #### [facility] , Calcium [Mass/Vol] 9.1 mg/dL Normal 8.6-10.3 [facility] Comment on above: Performed By: #### A DDONUAPLUS, CBC, CMP, CRP, ESR #### [place] [address] [place] #### C4, C3, CH50 #### [facility] , Chloride [Moles/Vol] 105 mmol/L Normal 98-107 [facility] Comment on above: Performed By: #### A DDONUAPLUS, CBC, CMP, CRP, ESR #### [place] [address] [place] #### C4, C3, CH50 #### [facility] , CO2 [Moles/Vol] 30.2 mmol/L Normal 21.0-31.0 [facility] Comment on above: Performed By: #### A DDONUAPLUS, CBC, CMP, CRP, ESR #### [address] #### C4, C3, CH50 #### [facility] , Creatinine [Mass/Vol] 0.97 mg/dL Normal 0.70-1.30 [facility] Comment on above: Performed By: #### A DDONUAPLUS, CBC, CMP, CRP, ESR #### [place] [address] [place] #### C4, C3, CH50 #### [facility] , GFR/1.73 sq M.predicted MDRD (S/P/Bld) [Vol rate/Area] mL/min/{1.73_m2} Normal [facility] Comment on above: Performed By: #### A DDONUAPLUS, CBC, CMP, CRP, ESR #### [place] [address] [place] #### C4, C3, CH50 #### [facility] , Globulin (S) [Mass/Vol] 2.6 g/dL Normal [facility] Comment on above: Performed By: #### A DDONUAPLUS, CBC, CMP, CRP, ESR #### [place] [address] [place] #### C4, C3, CH50 #### [facility] , Glucose [Mass/Vol] 115 mg/dL High 70-100 [facility] Comment on above: Result Comment: [place] Glucose Reference Range is dependent on time and content of last meal. Glucose of more than 200 mg/dL in a nonstressed, ambulatory subject supports the diagnosis of Diabetes Mellitus. ADA recommended reference range Performed By: #### A DDONUAPLUS, CBC, CMP, CRP, ESR #### [place] [address] [place] #### C4, C3, CH50 #### [facility] , Potassium [Moles/Vol] 4.4 mmol/L Normal 3.5-5.1 [facility] Comment on above: Performed By: #### A DDONUAPLUS, CBC, CMP, CRP, ESR #### [place] [address] [place] #### C4, C3, CH50 #### [facility] , Protein [Mass/Vol] 6.7 g/dL Normal 6.4-8.9 [facility] Comment on above: Performed By: #### A DDONUAPLUS, CBC, CMP, CRP, ESR #### [place] [address] [place] #### C4, C3, CH50 #### [facility] , Sodium [Moles/Vol] 140 mmol/L Normal 136-145 [facility] Comment on above: Performed By: #### A DDONUAPLUS, CBC, CMP, CRP, ESR #### [place] [address] [place] #### C4, C3, CH50 #### [facility] , Urea nitrogen [Mass/Vol] 17 mg/dL Normal 7-25 [facility] Comment on above: Performed By: #### A DDONUAPLUS, CBC, CMP, CRP, ESR #### [place] [address] [place] #### C4, C3, CH50 #### [facility] , Creatinine [Mass/volume] in Serum or PlasmaOrdered By: Sabrina Manriquez on 11-19-2023 Creatinine [Mass/Vol] 0.97 mg/dL 0.70-1.30 [facility] Dipstick and Microscopicon 0 11-19-2023 Appearance (U) Clear Normal Clear [facility] Comment on above: Order Comment: Name Collection Type:: Clean-Voided Midstream Performed By: #### A DDONUAPLUS, CBC, CMP, CRP, ESR #### [address] #### C4, C3, CH50 #### [facility] , Bacteria,Urine None Seen Normal None Seen [facility] Comment on above: Order Comment: Name Collection Type:: Clean-Voided Midstream Performed By: #### A DDONUAPLUS, CBC, CMP, CRP, ESR #### [address] #### C4, C3, CH50 #### [facility] , Bilirubin,Urine Negative Normal Negative [facility] Comment on above: Order Comment: Name Collection Type:: Clean-Voided Midstream Performed By: #### A DDONUAPLUS, CBC, CMP, CRP, ESR #### [address] #### C4, C3, CH50 #### [facility] , Color (U) Yellow Normal Yellow [facility] Comment on above: Order Comment: Name Collection Type:: Clean-Voided Midstream Performed By: #### A DDONUAPLUS, CBC, CMP, CRP, ESR #### [place] [address] [place] #### C4, C3, CH50 #### [facility] , Glucose Ql (U) Normal Normal Normal [facility] Comment on above: Order Comment: Name Collection Type:: Clean-Voided Midstream Performed By: #### A DDONUAPLUS, CBC, CMP, CRP, ESR #### [address] #### C4, C3, CH50 #### [facility] , Hyaline Casts,Urine None Seen Normal 0-8 [facility] Comment on above: Order Comment: Name Collection Type:: Clean-Voided Midstream Result Comment: PERF ORMED BY: [place] [address] PATHOLOGIST BRAKE MECHANIC KRISTIE BAKER M.D. Performed By: #### A DDONUAPLUS, CBC, CMP, CRP, ESR #### [address] #### C4, C3, CH50 #### [facility] , Ketones Ql (U) Negative Normal Negative [facility] Comment on above: Order Comment: Name Collection Type:: Clean-Voided Midstream Performed By: #### A DDONUAPLUS, CBC, CMP, CRP, ESR #### [address] #### C4, C3, CH50 #### [facility] , Leukocyte esterase Test strip Ql (U) Negative Normal Negative [facility] Comment on above: Order Comment: Name Collection Type:: Clean-Voided Midstream Performed By: #### A DDONUAPLUS, CBC, CMP, CRP, ESR #### [address] #### C4, C3, CH50 #### [facility] , Nitrite,Urine Negative Normal Negative [facility] Comment on above: Order Comment: Name Collection Type:: Clean-Voided Midstream Performed By: #### A DDONUAPLUS, CBC, CMP, CRP, ESR #### [address] #### C4, C3, CH50 #### [facility] , Occult Blood,Urine Negative Normal Negative [facility] Comment on above: Order Comment: Name Collection Type:: Clean-Voided Midstream Performed By: #### A DDONUAPLUS, CBC, CMP, CRP, ESR #### [address] #### C4, C3, CH50 #### [facility] , pH (U) 5.5 [pH] Normal 5.0-9.0 [facility] Comment on above: Order Comment: Name Collection Type:: Clean-Voided Midstream Performed By: #### A DDONUAPLUS, CBC, CMP, CRP, ESR #### [address] #### C4, C3, CH50 #### [facility] , Protein,Urine Negative Normal Negative [facility] Comment on above: Order Comment: Name Collection Type:: Clean-Voided Midstream Performed By: #### A DDONUAPLUS, CBC, CMP, CRP, ESR #### [address] #### C4, C3, CH50 #### [facility] , RBC LM.HPF (Urine sed) [#/Area] 0 /[HPF] Normal 0-4 [facility] Comment on above: Order Comment: Name Collection Type:: Clean-Voided Midstream Performed By: #### A DDONUAPLUS, CBC, CMP, CRP, ESR #### [address] #### C4, C3, CH50 #### [facility] , Specificy [place],Urine 1.021 Normal 1.001-1.03 0 [facility] Comment on above: Order Comment: Name Collection Type:: Clean-Voided Midstream Performed By: #### A DDONUAPLUS, CBC, CMP, CRP, ESR #### [address] #### C4, C3, CH50 #### [facility] , Squamous Epithelial Cell,Urine None Seen Normal 0-2 [facility] Comment on above: Order Comment: Name Collection Type:: Clean-Voided Midstream Performed By: #### A DDONUAPLUS, CBC, CMP, CRP, ESR #### [address] #### C4, C3, CH50 #### [facility] , Urobilinogen,Urine Normal Normal Normal [facility] Comment on above: Order Comment: Name Collection Type:: Clean-Voided Midstream Performed By: #### A DDONUAPLUS, CBC, CMP, CRP, ESR #### [address] #### C4, C3, CH50 #### [facility] , WBC LM.HPF (Urine sed) [#/Area] 0 /[HPF] Normal 0-4 [facility] Comment on above: Order Comment: Name Collection Type:: Clean-Voided Midstream Performed By: #### A DDONUAPLUS, CBC, CMP, CRP, ESR #### [facility] [address] [place] [address] #### C4, C3, CH50 #### [facility] , Eosinophils Auto (Bld) [#/Vo l]Ordered By: Sabrina Manriquez on 11-19-2023 Eosinophils (Bld) [#/Vol] 0.1 10*3/uL 0.0-0.45 [facility] Eosinophils/100 WBC Auto (Bl d)Ordered By: Sabrina Manriquez on 11-19-2023 Eosinophils/100 WBC (Bld) 1.6 % . [facility] Erythrocyte Sedimentation Ra natan 11-19-2023 ESR (Bld) [Velocity] 5 mm/h Normal 0-19 [facility] Comment on above: Result Comment: PERF ORMED BY: [place] [address] PATHOLOGIST BRAKE MECHANIC KRISTIE BAKER M.D. Performed By: #### C 4, C3, CH50 #### [facility] , #### CBC, CMP, ESR, ADDONUAPLUS, CRP #### [facility] [address] Erythrocyte distribution wid th Auto (RBC) [Ratio]Ordered By: Sabrina Manriquez on 11-19-2023 Erythrocyte distribution width (RBC) [Ratio] 13.7 % 12.0-14.8 [facility] Erythrocyte sedimentation ra te by Photometric methodOrdered By: Sabrina Manriquez on 11-19-2023 ESR Photometric method (Bld) [Velocity] 5 mm/hr 0-19 [facility] Erythrocytes [#/area] in Uri ne sediment by Automated countOrdered By: Sabrina Manriquez on 11-19-2023 RBC Auto (Urine sed) [#/Area] 0-1 [HPF] 0-4 [facility] Globulin Calc (S) [Mass/Vol] Ordered By: Sabrina Manriquez on 11-19-2023 Globulin (S) [Mass/Vol] 2.6 g/dL [facility] Glucose [Mass/volume] in Ser um or PlasmaOrdered By: Sabrina Manriquez on 11-19-2023 Glucose [Mass/Vol] 115 mg/dL 70-100 [facility] Comment on above: ADA recommended refe rence rangeRandom Glucose Reference Range is dependent on time and content of last meal. Glucose of more than 200 mg/dL in a nonstressed, ambulatory subject supports the diagnosis of Diabetes Mellitus. Hematocrit Auto (Bld) [Volum e fraction]Ordered By: Sabrina Manriquez on 11-19-2023 Hematocrit (Bld) [Volume fraction] 44.2 % 38.8-50.0 [facility] Hemoglobin [Mass/volume] in BloodOrdered By: Sabrina Manriquez on 11-19-2023 Hemoglobin (Bld) [Mass/Vol] 15.0 g/dL 13.0-17.0 [facility] Ketones Auto test strip (U) [Mass/Vol]Ordered By: Sabrina Manriquez on 11-19-2023 Ketones (U) [Mass/Vol] Negative Negative [facility] - UrinalysisOrder ed By: Sabrina Manriquez on 11-19-2023 Hyaline casts LM Ql (Urine sed) None seen [LPF] 0-8 [facility] Leukocytes [#/area] in Urine sediment by Automated countOrdered By: Sabrina Manriquez on 11-19-2023 WBC Auto (Urine sed) [#/Area] 0-1 [HPF] 0-4 [facility] Leukocytes [#/volume] correc leah for nucleated erythrocytes in Blood by Automated counOrdered By: Sabrina Manriquez on 11-19-2023 WBC corrected for nucl RBC Auto (Bld) [#/Vol] 5.7 10*3/uL 4.1-10.5 [facility] Lymphocytes Auto (Bld) [#/Vo l]Ordered By: Sabrina Manriquez on 11-19-2023 Lymphocytes (Bld) [#/Vol] 1.1 10*3/uL 1.00-4.8 [facility] Lymphocytes/100 WBC Auto (Bl d)Ordered By: Sabrina Manriquez on 11-19-2023 Lymphocytes/100 WBC (Bld) 18.8 % . [facility] MCH Auto (RBC) [Entitic mass ]Ordered By: Sabrina Manriquez on 11-19-2023 MCH (RBC) [Entitic mass] 32.3 pg 27.5-35.2 [facility] MCHC Auto (RBC) [Mass/Vol]Or dered By: Sabrina Manriquez on 11-19-2023 MCHC (RBC) [Mass/Vol] 34.0 g/dL 32.5-35.6 [facility] MCV Auto (RBC) [Entitic vol] Ordered By: Sabrina Manriquez on 11-19-2023 MCV (RBC) [Entitic vol] 95.2 fL 83.5-101 [facility] Monocytes Auto (Bld) [#/Vol] Ordered By: Sabrina Manriquez on 11-19-2023 Monocytes (Bld) [#/Vol] 0.5 10*3/uL 0.0-0.8 [facility] Monocytes/100 WBC Auto (Bld) Ordered By: Sabrina Manriquez on 11-19-2023 Monocytes/100 WBC (Bld) 8.0 % . [facility] Neutrophils Auto (Bld) [#/Vo l]Ordered By: Sabrina Manriquez on 11-19-2023 Neutrophils (Bld) [#/Vol] 4.1 10*3/uL 1.8-7.7 [facility] Neutrophils/100 WBC Auto (Bl d)Ordered By: Sabrina Manriquez on 11-19-2023 Neutrophils/100 WBC (Bld) 70.9 % . [facility] Nitrite Test strip Ql (U)Ord ered By: Sabrina Manriquez on 11-19-2023 Nitrite Ql (U) Negative Negative [facility] No Panel InformationOrdered By: Sabrina Manriquez on 11-19-2023 Estimated GFR (CKD-EPI) > 60.0 mL/Min [facility] Creatinine Clearance (Chem N/A [facility] Nucleated erythrocytes [Pres ence] in Blood by Automated countOrdered By: Sabrina Manriquez on 11-19-2023 Nucleated RBC Auto Ql (Bld) 0.1 /100{WBC} 0-0.5 [facility] Platelet mean volume Auto (B ld) [Entitic vol]Ordered By: Sabrina Manriquez on 11-19-2023 Platelet mean volume (Bld) [Entitic vol] 9.3 fL 6.6-10.1 [facility] Platelets Auto (Bld) [#/Vol] Ordered By: Sabrina Manriquez on 11-19-2023 Platelets (Bld) [#/Vol] 220 10*3/uL 150-450 [facility] Potassium [Moles/volume] in Serum or PlasmaOrdered By: Sabrina Manriquez on 11-19-2023 Potassium [Moles/Vol] 4.4 mmol/L 3.5-5.1 [facility] Protein Auto test strip (U) [Mass/Vol]Ordered By: Sabrina Manriquez on 11-19-2023 Protein (U) [Mass/Vol] Negative Negative [facility] Protein [Mass/volume] in Ser um or PlasmaOrdered By: Sabrina Manriquez on 11-19-2023 Protein [Mass/Vol] 6.7 g/dL 6.4-8.9 [facility] RBC Auto (Bld) [#/Vol]Ordere d By: Sabrina Manriquez on 11-19-2023 RBC (Bld) [#/Vol] 4.64 10*6/uL 3.90-5.60 [facility] Serum or plasma albumin/glob ulin mass ratioOrdered By: Sabrina Manriquez on 11-19-2023 Albumin/Globulin [Mass ratio] 1.6 {ratio} [facility] Serum or plasma anion gap de terminationOrdered By: Sabrina Manriquez on 11-19-2023 Anion gap [Moles/Vol] 9.2 mmol/L 6.0-15.0 [facility] Sodium [Moles/volume] in Ser um or PlasmaOrdered By: Sabrina Manriquez on 11-19-2023 Sodium [Moles/Vol] 140 mmol/L 136-145 [facility] Specific gravity Auto test s trip (U) [Rel density]Ordered By: Sabrina Manriquez on 11-19-2023 Specific gravity (U) [Rel density] 1.021 1.001-1.03 0 [facility] Urea nitrogen [Mass/volume] in Serum or PlasmaOrdered By: Sabrina Manriquez on 11-19-2023 Urea nitrogen [Mass/Vol] 17 mg/dL 7-25 [facility] Urine clarity by refractomet ry automatedOrdered By: Sabrina Manriquez on 11-19-2023 Clarity Refractometry automated (U) Clear Clear [facility] Urine glucose measurement by automated test strip (mass/volume)Ordered By: Sabrina Manriquez on 11-19-2023 Glucose Auto test strip (U) [Mass/Vol] Normal mg/dL Normal [facility] Urine hemoglobin detection b y automated test stripOrdered By: Sabrina Manriquez on 11-19-2023 Hemoglobin Auto test strip Ql (U) Negative Negative [facility] Urine leukocyte esterase det ection by automated test stripOrdered By: Sabrina Manriquez on 11-19-2023 Leukocyte esterase Auto test strip Ql (U) Negative Negative [facility] Urobilinogen Auto test strip (U) [Mass/Vol]Ordered By: Sabrina Manriquez on 11-19-2023 Urobilinogen (U) [Mass/Vol] Normal mg/dL Normal [facility] WBC Auto (Bld) [#/Vol]Ordere d By: Sabrina Manriquez on 11-19-2023 WBC (Bld) [#/Vol] 5.7 10*3/uL 4.1-10.5 [facility] pH Auto test strip (U)Ordere d By: Sabrina Manriquez on 11-19-2023 pH (U) 5.5 [pH] 5.0-9.0 [facility] Alanine aminotransferase [En zymatic activity/volume] in Serum or PlasmaOrdered By: Sabrina Manriquez on 07-18-2023 ALT [Catalytic activity/Vol] 32 U/L 7-52 [facility] Albumin [Mass/volume] in Ser um or Plasma by Bromocresol green (BCG) dye binding methoOrdered By: Sabrina Manriquez on 07-18-2023 Albumin BCG dye [Mass/Vol] 4.3 g/dL 3.5-5.7 [facility] Alkaline phosphatase [Enzyma tic activity/volume] in Serum or PlasmaOrdered By: Sabrina Manriquez on 07-18-2023 ALP [Catalytic activity/Vol] 78 U/L 34-104 [facility] Aspartate aminotransferase [ Enzymatic activity/volume] in Serum or PlasmaOrdered By: Sabrina Manriquez on 07-18-2023 AST [Catalytic activity/Vol] 28 U/L 13-39 [facility] Automated erythrocytes count in urine sediment (number/area)Ordered By: Sabrina Manriquez on 07-18-2023 RBC Auto (Urine sed) [#/Area] 0-1 [HPF] 0-4 [facility] Automated leukocytes count i n urine sediment (number/area)Ordered By: Sabrina Manriquez on 07-18-2023 WBC Auto (Urine sed) [#/Area] 0-1 [HPF] 0-4 [facility] Basophils Auto (Bld) [#/Vol] Ordered By: Sabrina Manriquez on 07-18-2023 Basophils (Bld) [#/Vol] 0.1 10*3/uL 0.0-0.2 [facility] Basophils/100 WBC Auto (Bld) Ordered By: Sabrina Manriquez on 07-18-2023 Basophils/100 WBC (Bld) 0.8 % . [facility] Bilirubin Test strip Ql (U)O rdered By: Sabrina Manriquez on 07-18-2023 Bilirubin Ql (U) Negative Negative [facility] Bilirubin.total [Mass/volume ] in Serum or PlasmaOrdered By: Sabrina Manriquez on 07-18-2023 Bilirubin [Mass/Vol] 0.5 mg/dL 0.3-1.0 [facility] C reactive protein [Mass/vol ume] in Serum or PlasmaOrdered By: Sabrina Manriquez on 07-18-2023 CRP [Mass/Vol] < 0.5 mg/dL 0.0-0.5 [facility] C-Reactive Proteinon 024 CRP [Mass/Vol] mg/L Normal 0.0-0.5 [facility] Comment on above: Result Comment: PERF ORMED BY: [place] [address] PATHOLOGIST BRAKE MECHANIC KRISTIE BAKER M.D. Performed By: #### C 4, C3, CH50 #### [facility] , #### CBC, CMP, ESR, ADDONUAPLUS, CRP #### [facility] [address] Calcium [Mass/volume] in Ser um or PlasmaOrdered By: Sabrina Manriquez on 07-18-2023 Calcium [Mass/Vol] 9.2 mg/dL 8.6-10.3 [facility] Carbon dioxide, total [Moles /volume] in Serum or PlasmaOrdered By: Sabrina Manriquez on 07-18-2023 CO2 [Moles/Vol] 30.1 mmol/L 21.0-31.0 [facility] Chloride [Moles/volume] in S lenny or PlasmaOrdered By: Sabrina Manriquez on 07-18-2023 Chloride [Moles/Vol] 105 mmol/L 98-107 [facility] Color Auto (U)Ordered By: Emily Montiel on 07-18-2023 Color (U) Yellow Yellow [facility] Complement C3on 07-18-2023 Complement C3 118 mg/dL Normal 82-167 [facility] Comment on above: Result Comment: Perf ormed at: [facility] [address] [id number] [employer] Installer: Derek Toscano PhD, Phone: [phone] Performed By: #### C 4, C3, CH50 #### [facility] , #### CBC, CMP, ESR, ADDONUAPLUS, CRP #### [facility] [address] [place] [address] Complement C4on 07-18-2023 Complement C4 23 mg/dL Normal 12-38 [facility] Comment on above: Result Comment: PERF ORMED BY: [place] [address] PATHOLOGIST BRAKE MECHANIC KRISTIE BAKER M.D. Performed By: #### C 4, C3, CH50 #### [facility] , #### CBC, CMP, ESR, ADDONUAPLUS, CRP #### [address] Complement Total (CH50)on Complement Total (CH50) 51 Normal >41 [facility] Comment on above: Result Comment: Age Male [...] out of range values. Performed at: - [facility] [id number] [employer] Installer: Derek Toscano PhD, Phone: [phone] PERFORMED BY: [place] [address] PATHOLOGIST BRAKE MECHANIC KRISTIE BAKER M.D. Performed By: #### C 4, C3, CH50 #### [facility] , #### CBC, CMP, ESR, ADDONUAPLUS, CRP #### [address] Complete Blood Count Auto Di ffon 07-18-2023 Basophils (Bld) [#/Vol] 0.1 10*3/uL Normal 0.0-0.2 [facility] Comment on above: Performed By: #### C 4, C3, CH50 #### [facility] , #### CBC, CMP, ESR, ADDONUAPLUS, CRP #### [address] Basophils/100 WBC (Bld) 0.8 % Normal . [facility] Comment on above: Performed By: #### C 4, C3, CH50 #### [facility] , #### CBC, CMP, ESR, ADDONUAPLUS, CRP #### [address] Eosinophils (Bld) [#/Vol] 0.0 10*3/uL Normal 0.0-0.45 [facility] Comment on above: Performed By: #### C 4, C3, CH50 #### [facility] , #### CBC, CMP, ESR, ADDONUAPLUS, CRP #### [place] [address] [place] Eosinophils/100 WBC (Bld) 0.7 % Normal . [facility] Comment on above: Performed By: #### C 4, C3, CH50 #### [facility] , #### CBC, CMP, ESR, ADDONUAPLUS, CRP #### [address] Erythrocyte distribution width (RBC) [Ratio] 13.9 % Normal 12.0-14.8 [facility] Comment on above: Performed By: #### C 4, C3, CH50 #### [facility] , #### CBC, CMP, ESR, ADDONUAPLUS, CRP #### [address] Hematocrit (Bld) [Volume fraction] 44.3 % Normal 38.8-50.0 [facility] Comment on above: Performed By: #### C 4, C3, CH50 #### [facility] , #### CBC, CMP, ESR, ADDONUAPLUS, CRP #### [address] Hemoglobin (Bld) [Mass/Vol] 15.2 g/dL Normal 13.0-17.0 [facility] Comment on above: Performed By: #### C 4, C3, CH50 #### [facility] , #### CBC, CMP, ESR, ADDONUAPLUS, CRP #### [address] Lymphocytes (Bld) [#/Vol] 0.9 10*3/uL Low 1.00-4.8 [facility] Comment on above: Performed By: #### C 4, C3, CH50 #### [facility] , #### CBC, CMP, ESR, ADDONUAPLUS, CRP #### [address] Lymphocytes/100 WBC (Bld) 15.1 % Normal . [facility] Comment on above: Performed By: #### C 4, C3, CH50 #### [facility] , #### CBC, CMP, ESR, ADDONUAPLUS, CRP #### [address] MCH (RBC) [Entitic mass] 32.3 pg Normal 27.5-35.2 [facility] Comment on above: Performed By: #### C 4, C3, CH50 #### [facility] , #### CBC, CMP, ESR, ADDONUAPLUS, CRP #### [address] MCV (RBC) [Entitic vol] 94.4 fL Normal 83.5-101 [facility] Comment on above: Performed By: #### C 4, C3, CH50 #### [facility] , #### CBC, CMP, ESR, ADDONUAPLUS, CRP #### [address] Mean Corpuscular HGB Conc 34.2 g/dL Normal 32.5-35.6 [facility] Comment on above: Performed By: #### C 4, C3, CH50 #### [facility] , #### CBC, CMP, ESR, ADDONUAPLUS, CRP #### [address] Monocytes (Bld) [#/Vol] 0.6 10*3/uL Normal 0.0-0.8 [facility] Comment on above: Performed By: #### C 4, C3, CH50 #### [facility] , #### CBC, CMP, ESR, ADDONUAPLUS, CRP #### [address] Monocytes/100 WBC (Bld) 8.9 % Normal . [facility] Comment on above: Performed By: #### C 4, C3, CH50 #### [facility] , #### CBC, CMP, ESR, ADDONUAPLUS, CRP #### [address] Neutrophils (Bld) [#/Vol] 4.7 10*3/uL Normal 1.8-7.7 [facility] Comment on above: Performed By: #### C 4, C3, CH50 #### [facility] , #### CBC, CMP, ESR, ADDONUAPLUS, CRP #### [address] Neutrophils/100 WBC (Bld) 74.5 % Normal . [facility] Comment on above: Performed By: #### C 4, C3, CH50 #### [facility] , #### CBC, CMP, ESR, ADDONUAPLUS, CRP #### [address] NRBC% 0.1 /100{WBC} Normal 0-0.5 [facility] Comment on above: Performed By: #### C 4, C3, CH50 #### [facility] , #### CBC, CMP, ESR, ADDONUAPLUS, CRP #### [address] Platelet mean volume (Bld) [Entitic vol] 8.8 fL Normal 6.6-10.1 [facility] Comment on above: Performed By: #### C 4, C3, CH50 #### [facility] , #### CBC, CMP, ESR, ADDONUAPLUS, CRP #### [place] [address] [place] Platelets (Bld) [#/Vol] 235 10*3/uL Normal 150-450 [facility] Comment on above: Performed By: #### C 4, C3, CH50 #### [facility] , #### CBC, CMP, ESR, ADDONUAPLUS, CRP #### [place] [address] [place] RBC (Bld) [#/Vol] 4.69 10*6/uL Normal 3.90-5.60 [facility] Comment on above: Performed By: #### C 4, C3, CH50 #### [facility] , #### CBC, CMP, ESR, ADDONUAPLUS, CRP #### [address] WBC (Bld) [#/Vol] 6.3 10*3/uL Normal 4.1-10.5 [facility] Comment on above: Performed By: #### C 4, C3, CH50 #### [facility] , #### CBC, CMP, ESR, ADDONUAPLUS, CRP #### [address] Comprehensive Metabolic Pane tanika 07-18-2023 Albumin [Mass/Vol] 4.3 g/dL Normal 3.5-5.7 [facility] Comment on above: Performed By: #### C 4, C3, CH50 #### [facility] , #### CBC, CMP, ESR, ADDONUAPLUS, CRP #### [address] Albumin/Globulin [Mass ratio] 1.7 {ratio} Normal [facility] Comment on above: Performed By: #### C 4, C3, CH50 #### [facility] , #### CBC, CMP, ESR, ADDONUAPLUS, CRP #### [address] ALP [Catalytic activity/Vol] 78 U/L Normal 34-104 [facility] Comment on above: Performed By: #### C 4, C3, CH50 #### [facility] , #### CBC, CMP, ESR, ADDONUAPLUS, CRP #### [address] ALT [Catalytic activity/Vol] 32 U/L Normal 7-52 [facility] Comment on above: Performed By: #### C 4, C3, CH50 #### [facility] , #### CBC, CMP, ESR, ADDONUAPLUS, CRP #### [address] Anion gap [Moles/Vol] 9.0 mmol/L Normal 6.0-15.0 [facility] Comment on above: Performed By: #### C 4, C3, CH50 #### [facility] , #### CBC, CMP, ESR, ADDONUAPLUS, CRP #### [address] AST [Catalytic activity/Vol] 28 U/L Normal 13-39 [facility] Comment on above: Performed By: #### C 4, C3, CH50 #### [facility] , #### CBC, CMP, ESR, ADDONUAPLUS, CRP #### [address] Bilirubin [Mass/Vol] 0.5 mg/dL Normal 0.3-1.0 [facility] Comment on above: Performed By: #### C 4, C3, CH50 #### [facility] , #### CBC, CMP, ESR, ADDONUAPLUS, CRP #### [address] Calcium [Mass/Vol] 9.2 mg/dL Normal 8.6-10.3 [facility] Comment on above: Performed By: #### C 4, C3, CH50 #### [facility] , #### CBC, CMP, ESR, ADDONUAPLUS, CRP #### [address] Chloride [Moles/Vol] 105 mmol/L Normal 98-107 [facility] Comment on above: Performed By: #### C 4, C3, CH50 #### [facility] , #### CBC, CMP, ESR, ADDONUAPLUS, CRP #### [address] CO2 [Moles/Vol] 30.1 mmol/L Normal 21.0-31.0 [facility] Comment on above: Performed By: #### C 4, C3, CH50 #### [facility] , #### CBC, CMP, ESR, ADDONUAPLUS, CRP #### [address] Creatinine [Mass/Vol] 0.93 mg/dL Normal 0.70-1.30 [facility] Comment on above: Performed By: #### C 4, C3, CH50 #### [facility] , #### CBC, CMP, ESR, ADDONUAPLUS, CRP #### [address] GFR/1.73 sq M.predicted MDRD (S/P/Bld) [Vol rate/Area] mL/min/{1.73_m2} Normal [facility] Comment on above: Performed By: #### C 4, C3, CH50 #### [facility] , #### CBC, CMP, ESR, ADDONUAPLUS, CRP #### [address] Globulin (S) [Mass/Vol] 2.5 g/dL Normal [facility] Comment on above: Performed By: #### C 4, C3, CH50 #### [facility] , #### CBC, CMP, ESR, ADDONUAPLUS, CRP #### [address] Glucose [Mass/Vol] 89 mg/dL Normal 70-100 [facility] Comment on above: Result Comment: [place] Glucose Reference Range is dependent on time and content of last meal. Glucose of more than 200 mg/dL in a nonstressed, ambulatory subject supports the diagnosis of Diabetes Mellitus. ADA recommended reference range Performed By: #### C 4, C3, CH50 #### [facility] , #### CBC, CMP, ESR, ADDONUAPLUS, CRP #### [address] Potassium [Moles/Vol] 4.1 mmol/L Normal 3.5-5.1 [facility] Comment on above: Performed By: #### C 4, C3, CH50 #### [facility] , #### CBC, CMP, ESR, ADDONUAPLUS, CRP #### [address] Protein [Mass/Vol] 6.8 g/dL Normal 6.4-8.9 [facility] Comment on above: Performed By: #### C 4, C3, CH50 #### [facility] , #### CBC, CMP, ESR, ADDONUAPLUS, CRP #### [address] Sodium [Moles/Vol] 140 mmol/L Normal 136-145 [facility] Comment on above: Performed By: #### C 4, C3, CH50 #### [facility] , #### CBC, CMP, ESR, ADDONUAPLUS, CRP #### [address] Urea nitrogen [Mass/Vol] 22 mg/dL Normal 7-25 [facility] [facility] Comment on above: Performed By: #### C 4, C3, CH50 #### [facility] , #### CBC, CMP, ESR, ADDONUAPLUS, CRP #### [address] Creatinine [Mass/volume] in Serum or PlasmaOrdered By: Sabrina Manriquez on 07-18-2023 Creatinine [Mass/Vol] 0.93 mg/dL 0.70-1.30 [facility] Dipstick and Microscopicon 0 07-18-2023 Appearance (U) Clear Normal Clear [facility] Comment on above: Order Comment: Name Collection Type:: Clean-Voided Midstream Performed By: #### C 4, C3, CH50 #### [facility] , #### CBC, CMP, ESR, ADDONUAPLUS, CRP #### [place] [address] [place] Bacteria,Urine None Seen Normal None Seen [facility] Comment on above: Order Comment: Name Collection Type:: Clean-Voided Midstream Performed By: #### C 4, C3, CH50 #### [facility] , #### CBC, CMP, ESR, ADDONUAPLUS, CRP #### [address] Bilirubin,Urine Negative Normal Negative [facility] Comment on above: Order Comment: Name Collection Type:: Clean-Voided Midstream Performed By: #### C 4, C3, CH50 #### [facility] , #### CBC, CMP, ESR, ADDONUAPLUS, CRP #### [address] Color (U) Yellow Normal Yellow [facility] Comment on above: Order Comment: Name Collection Type:: Clean-Voided Midstream Performed By: #### C 4, C3, CH50 #### [facility] , #### CBC, CMP, ESR, ADDONUAPLUS, CRP #### [address] Glucose Ql (U) Normal Normal Normal [facility] Comment on above: Order Comment: Name Collection Type:: Clean-Voided Midstream Performed By: #### C 4, C3, CH50 #### [facility] , #### CBC, CMP, ESR, ADDONUAPLUS, CRP #### [place] [address] [place] Hyaline Casts,Urine None Seen Normal 0-8 [facility] Comment on above: Order Comment: Name Collection Type:: Clean-Voided Midstream Result Comment: PERF ORMED BY: [place] [address] PATHOLOGIST BRAKE MECHANIC KRISTIE BAKER M.D. Performed By: #### C 4, C3, CH50 #### [facility] , #### CBC, CMP, ESR, ADDONUAPLUS, CRP #### [address] Ketones Ql (U) Trace High Negative [facility] Comment on above: Order Comment: Name Collection Type:: Clean-Voided Midstream Performed By: #### C 4, C3, CH50 #### [facility] , #### CBC, CMP, ESR, ADDONUAPLUS, CRP #### [address] Leukocyte esterase Test strip Ql (U) Negative Normal Negative [facility] Comment on above: Order Comment: Name Collection Type:: Clean-Voided Midstream Performed By: #### C 4, C3, CH50 #### [facility] , #### CBC, CMP, ESR, ADDONUAPLUS, CRP #### [address] Nitrite,Urine Negative Normal Negative [facility] Comment on above: Order Comment: Name Collection Type:: Clean-Voided Midstream Performed By: #### C 4, C3, CH50 #### [facility] , #### CBC, CMP, ESR, ADDONUAPLUS, CRP #### [address] Occult Blood,Urine Negative Normal Negative [facility] Comment on above: Order Comment: Name Collection Type:: Clean-Voided Midstream Performed By: #### C 4, C3, CH50 #### [facility] , #### CBC, CMP, ESR, ADDONUAPLUS, CRP #### [address] pH (U) 5.5 [pH] Normal 5.0-9.0 [facility] Comment on above: Order Comment: Name Collection Type:: Clean-Voided Midstream Performed By: #### C 4, C3, CH50 #### [facility] , #### CBC, CMP, ESR, ADDONUAPLUS, CRP #### [address] Protein,Urine Negative Normal Negative [facility] Comment on above: Order Comment: Name Collection Type:: Clean-Voided Midstream Performed By: #### C 4, C3, CH50 #### [facility] , #### CBC, CMP, ESR, ADDONUAPLUS, CRP #### [address] RBC LM.HPF (Urine sed) [#/Area] 0 /[HPF] Normal 0-4 [facility] Comment on above: Order Comment: Name Collection Type:: Clean-Voided Midstream Performed By: #### C 4, C3, CH50 #### [facility] , #### CBC, CMP, ESR, ADDONUAPLUS, CRP #### [address] Specificy [place],Urine 1.023 Normal 1.001-1.03 0 [facility] Comment on above: Order Comment: Name Collection Type:: Clean-Voided Midstream Performed By: #### C 4, C3, CH50 #### [facility] , #### CBC, CMP, ESR, ADDONUAPLUS, CRP #### [address] Squamous Epithelial Cell,Urine None Seen Normal 0-2 [facility] Comment on above: Order Comment: Name Collection Type:: Clean-Voided Midstream Performed By: #### C 4, C3, CH50 #### [facility] , #### CBC, CMP, ESR, ADDONUAPLUS, CRP #### [address] Urobilinogen,Urine Normal Normal Normal [facility] Comment on above: Order Comment: Name Collection Type:: Clean-Voided Midstream Performed By: #### C 4, C3, CH50 #### [facility] , #### CBC, CMP, ESR, ADDONUAPLUS, CRP #### [address] WBC LM.HPF (Urine sed) [#/Area] 0 /[HPF] Normal 0-4 [facility] Comment on above: Order Comment: Name Collection Type:: Clean-Voided Midstream Performed By: #### C 4, C3, CH50 #### [facility] , #### CBC, CMP, ESR, ADDONUAPLUS, CRP #### [address] Eosinophils Auto (Bld) [#/Vo l]Ordered By: Sabrina Manriquez on 07-18-2023 Eosinophils (Bld) [#/Vol] 0.0 10*3/uL 0.0-0.45 [facility] Eosinophils/100 WBC Auto (Bl d)Ordered By: Sabrina Manriquez on 07-18-2023 Eosinophils/100 WBC (Bld) 0.7 % . [facility] Erythrocyte Sedimentation Ra natan 07-18-2023 ESR (Bld) [Velocity] 7 mm/h Normal 0-19 [facility] Comment on above: Result Comment: PERF ORMED BY: [place] [address] PATHOLOGIST BRAKE MECHANIC KRISTIE BAKER M.D. Performed By: #### C 4, C3, CH50 #### [facility] , #### CBC, CMP, ESR, ADDONUAPLUS, CRP #### [address] Erythrocyte distribution wid th Auto (RBC) [Ratio]Ordered By: Sabrina Manriquez on 07-18-2023 Erythrocyte distribution width (RBC) [Ratio] 13.9 % 12.0-14.8 [facility] Erythrocyte sedimentation ra te by Photometric methodOrdered By: Sabrina Manriquez on 07-18-2023 ESR Photometric method (Bld) [Velocity] 7 mm/hr 0-19 [facility] Globulin Calc (S) [Mass/Vol] Ordered By: Sabrina Manriquez on 07-18-2023 Globulin (S) [Mass/Vol] 2.5 g/dL [facility] Glucose [Mass/volume] in Ser um or PlasmaOrdered By: Sabrina Manriquez on 07-18-2023 Glucose [Mass/Vol] 89 mg/dL 70-100 [facility] Comment on above: ADA recommended refe rence rangeRandom Glucose Reference Range is dependent on time and content of last meal. Glucose of more than 200 mg/dL in a nonstressed, ambulatory subject supports the diagnosis of Diabetes Mellitus. Hematocrit Auto (Bld) [Volum e fraction]Ordered By: Sabrina Manriquez on 07-18-2023 Hematocrit (Bld) [Volume fraction] 44.3 % 38.8-50.0 [facility] Hemoglobin [Mass/volume] in BloodOrdered By: Sabrina Manriquez on 07-18-2023 Hemoglobin (Bld) [Mass/Vol] 15.2 g/dL 13.0-17.0 [facility] Ketones Auto test strip (U) [Mass/Vol]Ordered By: Sabrina Manriquez on 07-18-2023 Ketones (U) [Mass/Vol] Trace Negative [facility] - UrinalysisOrder ed By: Sabrina Manriquez on 07-18-2023 Hyaline casts LM Ql (Urine sed) None seen [LPF] 0-8 [facility] Leukocytes [#/volume] correc leah for nucleated erythrocytes in Blood by Automated counOrdered By: Sabrina Manriquez on 07-18-2023 WBC corrected for nucl RBC Auto (Bld) [#/Vol] 6.3 10*3/uL 4.1-10.5 [facility] Lymphocytes Auto (Bld) [#/Vo l]Ordered By: Sabrina Manriquez on 07-18-2023 Lymphocytes (Bld) [#/Vol] 0.9 10*3/uL 1.00-4.8 [facility] Lymphocytes/100 WBC Auto (Bl d)Ordered By: Sabrina Manriquez on 07-18-2023 Lymphocytes/100 WBC (Bld) 15.1 % . [facility] MCH Auto (RBC) [Entitic mass ]Ordered By: Sabrina Manriquez on 07-18-2023 MCH (RBC) [Entitic mass] 32.3 pg 27.5-35.2 [facility] MCHC Auto (RBC) [Mass/Vol]Or dered By: Sabrina Manriquez on 07-18-2023 MCHC (RBC) [Mass/Vol] 34.2 g/dL 32.5-35.6 [facility] MCV Auto (RBC) [Entitic vol] Ordered By: Sabrina Manriquez on 07-18-2023 MCV (RBC) [Entitic vol] 94.4 fL 83.5-101 [facility] Monocytes Auto (Bld) [#/Vol] Ordered By: Sabrina Manriquez on 07-18-2023 Monocytes (Bld) [#/Vol] 0.6 10*3/uL 0.0-0.8 [facility] Monocytes/100 WBC Auto (Bld) Ordered By: Sabrina Manriquez on 07-18-2023 Monocytes/100 WBC (Bld) 8.9 % . [facility] Neutrophils Auto (Bld) [#/Vo l]Ordered By: Sabrina Manriquez on 07-18-2023 Neutrophils (Bld) [#/Vol] 4.7 10*3/uL 1.8-7.7 [facility] Neutrophils/100 WBC Auto (Bl d)Ordered By: Sabrina Manriquez on 07-18-2023 Neutrophils/100 WBC (Bld) 74.5 % . [facility] Nitrite Test strip Ql (U)Ord ered By: Sabrina Manriquez on 07-18-2023 Nitrite Ql (U) Negative Negative [facility] No Panel InformationOrdered By: Sabrina Manriquez on 07-18-2023 Estimated GFR (CKD-EPI) > 60.0 mL/Min [facility] Creatinine Clearance (Chem N/A [facility] Nucleated erythrocytes [Pres ence] in Blood by Automated countOrdered By: Sabrina Manriquez on 07-18-2023 Nucleated RBC Auto Ql (Bld) 0.1 /100{WBC} 0-0.5 [facility] Platelet mean volume Auto (B ld) [Entitic vol]Ordered By: Sabrina Manriquez on 07-18-2023 Platelet mean volume (Bld) [Entitic vol] 8.8 fL 6.6-10.1 [facility] Platelets Auto (Bld) [#/Vol] Ordered By: Sabrina Manriquez on 07-18-2023 Platelets (Bld) [#/Vol] 235 10*3/uL 150-450 [facility] Potassium [Moles/volume] in Serum or PlasmaOrdered By: Sabrina Manriquez on 07-18-2023 Potassium [Moles/Vol] 4.1 mmol/L 3.5-5.1 [facility] Protein Auto test strip (U) [Mass/Vol]Ordered By: Sabrina Manriquez on 07-18-2023 Protein (U) [Mass/Vol] Negative Negative [facility] Protein [Mass/volume] in Ser um or PlasmaOrdered By: Sabrina Manriquez on 07-18-2023 Protein [Mass/Vol] 6.8 g/dL 6.4-8.9 [facility] RBC Auto (Bld) [#/Vol]Ordere d By: Sabrina Manriquez on 07-18-2023 RBC (Bld) [#/Vol] 4.69 10*6/uL 3.90-5.60 [facility] Serum or plasma albumin/glob ulin mass ratioOrdered By: Sabrina Manriquez on 07-18-2023 Albumin/Globulin [Mass ratio] 1.7 {ratio} [facility] Serum or plasma anion gap de terminationOrdered By: Sabrina Manriquez on 07-18-2023 Anion gap [Moles/Vol] 9.0 mmol/L 6.0-15.0 [facility] Sodium [Moles/volume] in Ser um or PlasmaOrdered By: Sabrina Manriquez on 07-18-2023 Sodium [Moles/Vol] 140 mmol/L 136-145 [facility] Specific gravity Auto test s trip (U) [Rel density]Ordered By: Sabrina Manriquez on 07-18-2023 Specific gravity (U) [Rel density] 1.023 1.001-1.03 0 [facility] Squamous epithelial cells de tection in urine sediment by light microscopyOrdered By: Sabrina Manriquez on 07-18-2023 Epithelial cells.squamous LM Ql (Urine sed) None seen [HPF] 0-2 [facility] Urea nitrogen [Mass/volume] in Serum or PlasmaOrdered By: Sabrina Manriquez on 07-18-2023 Urea nitrogen [Mass/Vol] 22 mg/dL 01-15 [facility] Urine bacteria detection by automated methodOrdered By: Sabrina Manriquez on 07-18-2023 Bacteria Auto Ql (U) None seen None Seen [facility] Urine clarity by refractomet ry automatedOrdered By: Sabrina Manriquez on 07-18-2023 Clarity Refractometry automated (U) Clear Clear [facility] Urine glucose measurement by automated test strip (mass/volume)Ordered By: Sabrina Manriquez on 07-18-2023 Glucose Auto test strip (U) [Mass/Vol] Normal mg/dL Normal [facility] Urine hemoglobin detection b y automated test stripOrdered By: Sabrina Manriquez on 07-18-2023 Hemoglobin Auto test strip Ql (U) Negative Negative [facility] Urine leukocyte esterase det ection by automated test stripOrdered By: Sabrina Manriquez on 07-18-2023 Leukocyte esterase Auto test strip Ql (U) Negative Negative [facility] Urobilinogen Auto test strip (U) [Mass/Vol]Ordered By: Sabrina Manriquez on 07-18-2023 Urobilinogen (U) [Mass/Vol] Normal mg/dL Normal [facility] WBC Auto (Bld) [#/Vol]Ordere d By: Sabrina Manriquez on 07-18-2023 WBC (Bld) [#/Vol] 6.3 10*3/uL 4.1-10.5 [facility] pH Auto test strip (U)Ordere d By: Sabrina Manriquez on 07-18-2023 pH (U) 5.5 [pH] 5.0-9.0 [facility] Reminderson 04-10-2023 Reminders - From: Elvira Lee LPN To: GSN - Clinical; Sent: 04/10/2023 09:13:08 EDT Show up: 03/18/2024 07:00:00 EDT Subject: GB US recall Due Date/Time: 04/02/2024 07:00:00 EDT Reminder/Recall Patient due to repeat GB US 04/02/2024 to monitor stability of GB polyp. Normal [facility] RAD - Ultrasound Reporton RAD - Ultrasound Report [id number] F Normal [facility] Ambulatory Visit Summaryon 1 Ambulatory Visit Summary JAY CARR :1960 Visit Date:04/08/2023 Ambulatory Visit Instructions Your Diagnosis Kidney stone BPH (benign prostatic hyperplasia) Hypocitraturia Family history of prostate cancer in father Erectile dysfunction Tests Performed Urnls Dip Stick [place] 38923 XR Abdomen 1 View -- Results Pending -- Please visit your patient portal for your results or contact your primary care physician. Your Care Team Attending Physician - Shun MACHADO MD Primary Care Physician - Audrey Armstrong MD [...] ? 8 oz (237 mL) of milk, ldplxoa-nwraguxufznj-jya ry milk, and calcium-fortifiedfruit juice. Calcium-fortified means [...] Spinach (cooked), rhubarb, beets, sweet potatoes, and Brazilian chard. ? Peanuts. ? Potato chips, pitcairn islander fries, and baked potatoes with skin on. ? Nuts and nut products. ? Chocolate. ? If you regularly take a diuretic medicine, make sure to eat at least 1 or 2 servings of fruits or vegetables that are high in potassium each day. These include: ? Avocado. ? Banana. ? [place], prune, carrot, or tomato juice. ? Baked [...] fish oil, or vitamin B6. ? Take pgdt-hjq-yhemfxl and prescription medicines only as told by your health care provider. These include supplements. What foods should I limit? Limit your in (more content not included)... Normal [facility] Screenson 04-08-2023 Screens [id number] FF Normal [facility] Urology Office/Clinic Noteon 04-08-2023 Urology Office/Clinic Note [...] L per OV note 02/19/22. Electrolyte panel 10/10/23 - wnl. KUB 04/02/23 TBH - no [...] with voice recognition artificial intelligence software, specifically [employer], [employer] and or [employer]. Substitutions may have occurred due to the inherent limitations of voice recognition and artificial intelligence software. Follow-up With When Contact Information CHRIS RIVERA, Shun Mirza, URL [address] [place] [phone]- Additional Instructions: 1 yr w/ KUB Patient [...] Hypertension Hypocitraturia Kidney (more content not included)... [facility] Comment on above: Result Comment: Elec tronically Signed By: Shun MACHADO MD\.br\Date and Time Signed: 04/08/23 12:06 EDT\.br\Electronically Co-Signed By: Yolie Aly\.br\Date and Time Co-Signed: 04/08/23 11:16 EDT Lab Reportson 04-05-2023 Lab Reports [id number] F [facility] Lab Reportson 04-03-2023 Lab Reports [id number] F [facility] RAD - MISCon 04-03-2023 RAD - MISC [id number] FF [facility] Reminderson 03-27-2023 Reminders - From: Elvira Lee LPN To: N - Clinical; Sent: 10/02/2022 14:02:21 EDT Show up: 2023 07:00:00 EDT Subject: repeat GB US Due Date/Time: 04/03/2023 07:00:00 EDT Reminder/Recall Patient is due to repeat gall bladder US 03/2023. Scheduled 04/02 at [facility]. [facility] CNOVon 03-12-2023 CNOV Office Visit (ORFTMN ) -------- JAY CARR ([id number]) 1960 M Date Time Provider Department 03/12/23 1:10 PM ANTWAN SORIANO ORFGARRETTN During your visit today, we recorded the [...] No PCP: Audrey Armstrong MD [address] [facility] [id number] FELLOW / RESIDENT: No fellow or resident assisted in th (more content not included)... Normal [facility] Alanine aminotransferase [En zymatic activity/volume] in Serum or PlasmaOrdered By: Hudson De Leon on 02-19-2023 ALT [Catalytic activity/Vol] 24 U/L 7-52 [facility] Albumin [Mass/volume] in Ser um or Plasma by Bromocresol green (BCG) dye binding methoOrdered By: Hudson De Leon on 02-19-2023 Albumin BCG dye [Mass/Vol] 4.1 g/dL 3.5-5.7 [facility] Alkaline phosphatase [Enzyma tic activity/volume] in Serum or PlasmaOrdered By: Hudson De Leon on 02-19-2023 ALP [Catalytic activity/Vol] 90 U/L 34-104 [facility] Aspartate aminotransferase [ Enzymatic activity/volume] in Serum or PlasmaOrdered By: Hudson De Leon on 02-19-2023 AST [Catalytic activity/Vol] 27 U/L 13-39 [facility] Automated erythrocytes count in urine sediment (number/area)Ordered By: Hudson De Leon on 02-19-2023 RBC Auto (Urine sed) [#/Area] 0-1 [HPF] 0-4 [facility] Automated leukocytes count i n urine sediment (number/area)Ordered By: Hudson De Leon on 02-19-2023 WBC Auto (Urine sed) [#/Area] None seen [HPF] 0-4 [facility] Basophils Auto (Bld) [#/Vol] Ordered By: Hudson De Leon on 02-19-2023 Basophils (Bld) [#/Vol] 0.0 10*3/uL 0.0-0.2 [facility] Basophils/100 WBC Auto (Bld) Ordered By: Hudson De Leon on 02-19-2023 Basophils/100 WBC (Bld) 0.7 % . [facility] Bilirubin Test strip Ql (U)O rdered By: Hudson De Leon on 02-19-2023 Bilirubin Ql (U) Negative Negative [facility] Bilirubin.total [Mass/volume ] in Serum or PlasmaOrdered By: Hudson De Leon on 02-19-2023 Bilirubin [Mass/Vol] 0.6 mg/dL 0.3-1.0 [facility] Calcium [Mass/volume] in Ser um or PlasmaOrdered By: Hudson De Leon on 02-19-2023 Calcium [Mass/Vol] 9.0 mg/dL 8.6-10.3 [facility] Carbon dioxide, total [Moles /volume] in Serum or PlasmaOrdered By: Hudson De Leon on 02-19-2023 CO2 [Moles/Vol] 29.6 mmol/L 21.0-31.0 [facility] Chloride [Moles/volume] in S lenny or PlasmaOrdered By: Hudson Catherinerow on 02-19-2023 Chloride [Moles/Vol] 105 mmol/L 98-107 [facility] Color Auto (U)Ordered By: Maykel ttdwain Haley on 02-19-2023 Color (U) Yellow Yellow [facility] Complement C3on 02-19-2023 Complement C3 121 mg/dL Normal 82-167 [facility] Comment on above: Result Comment: Perf ormed at: - [facility] [address] [id number] [employer] Installer: Derek Toscano PhD, Phone: [phone] Performed By: #### C 4, C3, CH50 #### [facility] , #### CBC, CMP, ESR, ADDONUAPLUS, CRP #### [facility] [address] [place] [address] Complement C4on 02-19-2023 Complement C4 23 mg/dL Normal 12-38 [facility] Comment on above: Result Comment: PERF ORMED BY: [place] [address] PATHOLOGIST BRAKE MECHANIC KRISTIE BAKER M.D. Performed By: #### C 4, C3, CH50 #### [facility] , #### CBC, CMP, ESR, ADDONUAPLUS, CRP #### [facility] [address] [place] [address] Complement Total (CH50)on Complement Total (CH50) 48 Normal >41 [facility] Comment on above: Result Comment: Age Male [...] out of range values. Performed at: - [facility] [id number] [employer] Installer: Derek Toscano PhD, Phone: [phone] PERFORMED BY: [place] [address] PATHOLOGIST BRAKE MECHANIC KRISTIE BAKER M.D. Performed By: #### C 4, C3, CH50 #### [facility] , #### CBC, CMP, ESR, ADDONUAPLUS, CRP #### [address] Complete Blood Count Auto Di ffon 02-19-2023 Basophils (Bld) [#/Vol] 0.0 10*3/uL Normal 0.0-0.2 [facility] Comment on above: Performed By: #### C 4, C3, CH50 #### [facility] , #### CBC, CMP, ESR, ADDONUAPLUS, CRP #### [address] Basophils/100 WBC (Bld) 0.7 % Normal . [facility] Comment on above: Performed By: #### C 4, C3, CH50 #### [facility] , #### CBC, CMP, ESR, ADDONUAPLUS, CRP #### [address] Eosinophils (Bld) [#/Vol] 0.0 10*3/uL Normal 0.0-0.45 [facility] Comment on above: Performed By: #### C 4, C3, CH50 #### [facility] , #### CBC, CMP, ESR, ADDONUAPLUS, CRP #### [address] [place] [address] [place] Eosinophils/100 WBC (Bld) 1.0 % Normal . [facility] Comment on above: Performed By: #### C 4, C3, CH50 #### [facility] , #### CBC, CMP, ESR, ADDONUAPLUS, CRP #### [address] Erythrocyte distribution width (RBC) [Ratio] 13.6 % Normal 12.0-14.8 [facility] Comment on above: Performed By: #### C 4, C3, CH50 #### [facility] , #### CBC, CMP, ESR, ADDONUAPLUS, CRP #### [address] Hematocrit (Bld) [Volume fraction] 42.3 % Normal 38.8-50.0 [facility] Comment on above: Performed By: #### C 4, C3, CH50 #### [facility] , #### CBC, CMP, ESR, ADDONUAPLUS, CRP #### [address] Hemoglobin (Bld) [Mass/Vol] 14.3 g/dL Normal 13.0-17.0 [facility] Comment on above: Performed By: #### C 4, C3, CH50 #### [facility] , #### CBC, CMP, ESR, ADDONUAPLUS, CRP #### [address] Lymphocytes (Bld) [#/Vol] 0.9 10*3/uL Low 1.00-4.8 [facility] Comment on above: Performed By: #### C 4, C3, CH50 #### [facility] , #### CBC, CMP, ESR, ADDONUAPLUS, CRP #### [address] Lymphocytes/100 WBC (Bld) 18.5 % Normal . [facility] Comment on above: Performed By: #### C 4, C3, CH50 #### [facility] , #### CBC, CMP, ESR, ADDONUAPLUS, CRP #### [address] MCH (RBC) [Entitic mass] 31.5 pg Normal 27.5-35.2 [facility] Comment on above: Performed By: #### C 4, C3, CH50 #### [facility] , #### CBC, CMP, ESR, ADDONUAPLUS, CRP #### [address] MCV (RBC) [Entitic vol] 93.0 fL Normal 83.5-101 [facility] Comment on above: Performed By: #### C 4, C3, CH50 #### [facility] , #### CBC, CMP, ESR, ADDONUAPLUS, CRP #### [address] Mean Corpuscular HGB Conc 33.9 g/dL Normal 32.5-35.6 [facility] Comment on above: Performed By: #### C 4, C3, CH50 #### [facility] , #### CBC, CMP, ESR, ADDONUAPLUS, CRP #### [address] Monocytes (Bld) [#/Vol] 0.4 10*3/uL Normal 0.0-0.8 [facility] Comment on above: Performed By: #### C 4, C3, CH50 #### [facility] , #### CBC, CMP, ESR, ADDONUAPLUS, CRP #### [address] Monocytes/100 WBC (Bld) 8.1 % Normal . [facility] Comment on above: Performed By: #### C 4, C3, CH50 #### [facility] , #### CBC, CMP, ESR, ADDONUAPLUS, CRP #### [place] [address] [place] Neutrophils (Bld) [#/Vol] 3.4 10*3/uL Normal 1.8-7.7 [facility] Comment on above: Performed By: #### C 4, C3, CH50 #### [facility] , #### CBC, CMP, ESR, ADDONUAPLUS, CRP #### [address] Neutrophils/100 WBC (Bld) 71.7 % Normal . [facility] Comment on above: Performed By: #### C 4, C3, CH50 #### [facility] , #### CBC, CMP, ESR, ADDONUAPLUS, CRP #### [address] NRBC% 0.1 /100{WBC} Normal 0-0.5 [facility] Comment on above: Performed By: #### C 4, C3, CH50 #### [facility] , #### CBC, CMP, ESR, ADDONUAPLUS, CRP #### [address] Platelet mean volume (Bld) [Entitic vol] 9.0 fL Normal 6.6-10.1 [facility] Comment on above: Performed By: #### C 4, C3, CH50 #### [facility] , #### CBC, CMP, ESR, ADDONUAPLUS, CRP #### [place] [address] [place] Platelets (Bld) [#/Vol] 198 10*3/uL Normal 150-450 [facility] Comment on above: Performed By: #### C 4, C3, CH50 #### [facility] , #### CBC, CMP, ESR, ADDONUAPLUS, CRP #### [address] RBC (Bld) [#/Vol] 4.55 10*6/uL Normal 3.90-5.60 [facility] Comment on above: Performed By: #### C 4, C3, CH50 #### [facility] , #### CBC, CMP, ESR, ADDONUAPLUS, CRP #### [address] WBC (Bld) [#/Vol] 4.7 10*3/uL Normal 4.1-10.5 [facility] Comment on above: Performed By: #### C 4, C3, CH50 #### [facility] , #### CBC, CMP, ESR, ADDONUAPLUS, CRP #### [address] Comprehensive Metabolic Pane [facility] 02-19-2023 Albumin [Mass/Vol] 4.1 g/dL Normal 3.5-5.7 [facility] Comment on above: Performed By: #### C 4, C3, CH50 #### [facility] , #### CBC, CMP, ESR, ADDONUAPLUS, CRP #### [address] Albumin/Globulin [Mass ratio] 1.6 {ratio} Normal [facility] Comment on above: Performed By: #### C 4, C3, CH50 #### [facility] , #### CBC, CMP, ESR, ADDONUAPLUS, CRP #### [address] ALP [Catalytic activity/Vol] 90 U/L Normal 34-104 [facility] Comment on above: Result Comment: PERF ORMED BY: [place] [address] PATHOLOGIST BRAKE MECHANIC KRISTIE BAKER M.D. Performed By: #### C 4, C3, CH50 #### [facility] , #### CBC, CMP, ESR, ADDONUAPLUS, CRP #### [address] ALT [Catalytic activity/Vol] 24 U/L Normal 7-52 [facility] Comment on above: Performed By: #### C 4, C3, CH50 #### [facility] , #### CBC, CMP, ESR, ADDONUAPLUS, CRP #### [address] Anion gap [Moles/Vol] 9.4 mmol/L Normal 6.0-15.0 [facility] Comment on above: Performed By: #### C 4, C3, CH50 #### [facility] , #### CBC, CMP, ESR, ADDONUAPLUS, CRP #### [address] AST [Catalytic activity/Vol] 27 U/L Normal 13-39 [facility] Comment on above: Performed By: #### C 4, C3, CH50 #### [facility] , #### CBC, CMP, ESR, ADDONUAPLUS, CRP #### [address] Bilirubin [Mass/Vol] 0.6 mg/dL Normal 0.3-1.0 [facility] Comment on above: Performed By: #### C 4, C3, CH50 #### [facility] , #### CBC, CMP, ESR, ADDONUAPLUS, CRP #### [place] [address] [place] Calcium [Mass/Vol] 9.0 mg/dL Normal 8.6-10.3 [facility] Comment on above: Performed By: #### C 4, C3, CH50 #### [facility] , #### CBC, CMP, ESR, ADDONUAPLUS, CRP #### [address] Chloride [Moles/Vol] 105 mmol/L Normal 98-107 [facility] Comment on above: Performed By: #### C 4, C3, CH50 #### [facility] , #### CBC, CMP, ESR, ADDONUAPLUS, CRP #### [address] CO2 [Moles/Vol] 29.6 mmol/L Normal 21.0-31.0 [facility] Comment on above: Performed By: #### C 4, C3, CH50 #### [facility] , #### CBC, CMP, ESR, ADDONUAPLUS, CRP #### [address] Creatinine [Mass/Vol] 0.95 mg/dL Normal 0.70-1.30 [facility] Comment on above: Performed By: #### C 4, C3, CH50 #### [facility] , #### CBC, CMP, ESR, ADDONUAPLUS, CRP #### [address] GFR/1.73 sq M.predicted MDRD (S/P/Bld) [Vol rate/Area] mL/min/{1.73_m2} Normal [facility] Comment on above: Performed By: #### C 4, C3, CH50 #### [facility] , #### CBC, CMP, ESR, ADDONUAPLUS, CRP #### [address] Globulin (S) [Mass/Vol] 2.6 g/dL Normal [facility] Comment on above: Performed By: #### C 4, C3, CH50 #### [facility] , #### CBC, CMP, ESR, ADDONUAPLUS, CRP #### [address] Glucose [Mass/Vol] 108 mg/dL High 70-100 [facility] Comment on above: Result Comment: [place] Glucose Reference Range is dependent on time and content of last meal. Glucose of more than 200 mg/dL in a nonstressed, ambulatory subject supports the diagnosis of Diabetes Mellitus. ADA recommended reference range Performed By: #### C 4, C3, CH50 #### [facility] , #### CBC, CMP, ESR, ADDONUAPLUS, CRP #### [address] Potassium [Moles/Vol] 4.0 mmol/L Normal 3.5-5.1 [facility] Comment on above: Performed By: #### C 4, C3, CH50 #### [facility] , #### CBC, CMP, ESR, ADDONUAPLUS, CRP #### [address] Protein [Mass/Vol] 6.7 g/dL Normal 6.4-8.9 [facility] Comment on above: Performed By: #### C 4, C3, CH50 #### [facility] , #### CBC, CMP, ESR, ADDONUAPLUS, CRP #### [place] [address] [place] Sodium [Moles/Vol] 140 mmol/L Normal 136-145 [facility] Comment on above: Performed By: #### C 4, C3, CH50 #### [facility] , #### CBC, CMP, ESR, ADDONUAPLUS, CRP #### [place] [address] [place] Urea nitrogen [Mass/Vol] 16 mg/dL Normal 7-25 [facility] Comment on above: Performed By: #### C 4, C3, CH50 #### [facility] , #### CBC, CMP, ESR, ADDONUAPLUS, CRP #### [place] [address] [place] Creatinine [Mass/volume] in Serum or PlasmaOrdered By: Hudson De Leon on 02-19-2023 Creatinine [Mass/Vol] 0.95 mg/dL 0.70-1.30 [facility] Dipstick and Microscopicon 0 02-19-2023 Appearance (U) Clear Normal Clear [facility] Comment on above: Order Comment: Name Collection Type:: Clean-Voided Midstream Performed By: #### C 4, C3, CH50 #### [facility] , #### CBC, CMP, ESR, ADDONUAPLUS, CRP #### [place] [address] [place] Bacteria,Urine None Seen Normal None Seen [facility] Comment on above: Order Comment: Name Collection Type:: Clean-Voided Midstream Performed By: #### C 4, C3, CH50 #### [facility] , #### CBC, CMP, ESR, ADDONUAPLUS, CRP #### [address] Bilirubin,Urine Negative Normal Negative [facility] Comment on above: Order Comment: Name Collection Type:: Clean-Voided Midstream Performed By: #### C 4, C3, CH50 #### [facility] , #### CBC, CMP, ESR, ADDONUAPLUS, CRP #### [place] [address] [place] Color (U) Yellow Normal Yellow [facility] Comment on above: Order Comment: Name Collection Type:: Clean-Voided Midstream Performed By: #### C 4, C3, CH50 #### [facility] , #### CBC, CMP, ESR, ADDONUAPLUS, CRP #### [place] [address] [place] Glucose Ql (U) Normal Normal Normal [facility] Comment on above: Order Comment: Name Collection Type:: Clean-Voided Midstream Performed By: #### C 4, C3, CH50 #### [facility] , #### CBC, CMP, ESR, ADDONUAPLUS, CRP #### [address] Hyaline Casts,Urine None Seen Normal 0-8 [facility] Comment on above: Order Comment: Name Collection Type:: Clean-Voided Midstream Result Comment: PERF ORMED BY: [place] [address] PATHOLOGIST BRAKE MECHANIC KRISTIE BAKER M.D. Performed By: #### C 4, C3, CH50 #### [facility] , #### CBC, CMP, ESR, ADDONUAPLUS, CRP #### [address] Ketones Ql (U) Negative Normal Negative [facility] Comment on above: Order Comment: Name Collection Type:: Clean-Voided Midstream Performed By: #### C 4, C3, CH50 #### [facility] , #### CBC, CMP, ESR, ADDONUAPLUS, CRP #### [address] Leukocyte esterase Test strip Ql (U) Negative Normal Negative [facility] Comment on above: Order Comment: Name Collection Type:: Clean-Voided Midstream Performed By: #### C 4, C3, CH50 #### [facility] , #### CBC, CMP, ESR, ADDONUAPLUS, CRP #### [place] [address] [place] Nitrite,Urine Negative Normal Negative [facility] Comment on above: Order Comment: Name Collection Type:: Clean-Voided Midstream Performed By: #### C 4, C3, CH50 #### [facility] , #### CBC, CMP, ESR, ADDONUAPLUS, CRP #### [place] [address] [place] Occult Blood,Urine Negative Normal Negative [facility] Comment on above: Order Comment: Name Collection Type:: Clean-Voided Midstream Performed By: #### C 4, C3, CH50 #### [facility] , #### CBC, CMP, ESR, ADDONUAPLUS, CRP #### [address] pH (U) 5.5 [pH] Normal 5.0-9.0 [facility] Comment on above: Order Comment: Name Collection Type:: Clean-Voided Midstream Performed By: #### C 4, C3, CH50 #### [facility] , #### CBC, CMP, ESR, ADDONUAPLUS, CRP #### [address] Protein,Urine Negative Normal Negative [facility] Comment on above: Order Comment: Name Collection Type:: Clean-Voided Midstream Performed By: #### C 4, C3, CH50 #### [facility] , #### CBC, CMP, ESR, ADDONUAPLUS, CRP #### [address] RBC LM.HPF (Urine sed) [#/Area] 0 /[HPF] Normal 0-4 [facility] Comment on above: Order Comment: Name Collection Type:: Clean-Voided Midstream Performed By: #### C 4, C3, CH50 #### [facility] , #### CBC, CMP, ESR, ADDONUAPLUS, CRP #### [address] Specificy [place],Urine 1.018 Normal 1.001-1.03 0 [facility] Comment on above: Order Comment: Name Collection Type:: Clean-Voided Midstream Performed By: #### C 4, C3, CH50 #### [facility] , #### CBC, CMP, ESR, ADDONUAPLUS, CRP #### [address] Squamous Epithelial Cell,Urine None Seen Normal 0-2 [facility] Comment on above: Order Comment: Name Collection Type:: Clean-Voided Midstream Performed By: #### C 4, C3, CH50 #### [facility] , #### CBC, CMP, ESR, ADDONUAPLUS, CRP #### [address] Urobilinogen,Urine Normal Normal Normal [facility] Comment on above: Order Comment: Name Collection Type:: Clean-Voided Midstream Performed By: #### C 4, C3, CH50 #### [facility] , #### CBC, CMP, ESR, ADDONUAPLUS, CRP #### [address] WBC,Urine None Seen Normal 0-4 [facility] Comment on above: Order Comment: Name Collection Type:: Clean-Voided Midstream Performed By: #### C 4, C3, CH50 #### [facility] , #### CBC, CMP, ESR, ADDONUAPLUS, CRP #### [place] [address] [place] Eosinophils Auto (Bld) [#/Vo l]Ordered By: Hudson De Leon on 02-19-2023 Eosinophils (Bld) [#/Vol] 0.0 10*3/uL 0.0-0.45 [facility] Eosinophils/100 WBC Auto (Bl d)Ordered By: Hudson De Leon on 02-19-2023 Eosinophils/100 WBC (Bld) 1.0 % . [facility] Erythrocyte Sedimentation Ra natan 02-19-2023 ESR (Bld) [Velocity] 7 mm/h Normal 0-19 [facility] Comment on above: Result Comment: PERF ORMED BY: [place] [address] PATHOLOGIST BRAKE MECHANIC KRISTIE BAKER M.D. Performed By: #### C 4, C3, CH50 #### [facility] , #### CBC, CMP, ESR, ADDONUAPLUS, CRP #### [facility] [address] Erythrocyte distribution wid th Auto (RBC) [Ratio]Ordered By: Hudson De Leon on 02-19-2023 Erythrocyte distribution width (RBC) [Ratio] 13.6 % 12.0-14.8 [facility] Erythrocyte sedimentation ra te by Photometric methodOrdered By: Hudson De Leon on 02-19-2023 ESR Photometric method (Bld) [Velocity] 7 mm/hr 0-19 [facility] Globulin Calc (S) [Mass/Vol] Ordered By: Hudson De Leon on 02-19-2023 Globulin (S) [Mass/Vol] 2.6 g/dL [facility] Glucose [Mass/volume] in Ser um or PlasmaOrdered By: Hudson De Leon on 02-19-2023 Glucose [Mass/Vol] 108 mg/dL 70-100 [facility] Comment on above: ADA recommended refe rence rangeRandom Glucose Reference Range is dependent on time and content of last meal. Glucose of more than 200 mg/dL in a nonstressed, ambulatory subject supports the diagnosis of Diabetes Mellitus. Hematocrit Auto (Bld) [Volum e fraction]Ordered By: Hudson De Leon on 02-19-2023 Hematocrit (Bld) [Volume fraction] 42.3 % 38.8-50.0 [facility] Hemoglobin [Mass/volume] in BloodOrdered By: Hudson De Leon on 02-19-2023 Hemoglobin (Bld) [Mass/Vol] 14.3 g/dL 13.0-17.0 [facility] Ketones Auto test strip (U) [Mass/Vol]Ordered By: Hudson De Leon on 02-19-2023 Ketones (U) [Mass/Vol] Negative Negative [facility] - UrinalysisOrder ed By: Hudson De Leon on 02-19-2023 Hyaline casts LM Ql (Urine sed) None seen [LPF] 0-8 [facility] Leukocytes [#/volume] correc leah for nucleated erythrocytes in Blood by Automated counOrdered By: Hudson De Leon on 02-19-2023 WBC corrected for nucl RBC Auto (Bld) [#/Vol] 4.7 10*3/uL 4.1-10.5 [facility] Lymphocytes Auto (Bld) [#/Vo l]Ordered By: Hudson De Leon on 02-19-2023 Lymphocytes (Bld) [#/Vol] 0.9 10*3/uL 1.00-4.8 [facility] Lymphocytes/100 WBC Auto (Bl d)Ordered By: Hudson De Leon on 02-19-2023 Lymphocytes/100 WBC (Bld) 18.5 % . [facility] MCH Auto (RBC) [Entitic mass ]Ordered By: Hudson De Leon on 02-19-2023 MCH (RBC) [Entitic mass] 31.5 pg 27.5-35.2 [facility] MCHC Auto (RBC) [Mass/Vol]Or dered By: Hudson De Leon on 02-19-2023 MCHC (RBC) [Mass/Vol] 33.9 g/dL 32.5-35.6 [facility] MCV Auto (RBC) [Entitic vol] Ordered By: Hudson De Leon on 02-19-2023 MCV (RBC) [Entitic vol] 93.0 fL 83.5-101 [facility] Monocytes Auto (Bld) [#/Vol] Ordered By: Hudson De Leon on 02-19-2023 Monocytes (Bld) [#/Vol] 0.4 10*3/uL 0.0-0.8 [facility] Monocytes/100 WBC Auto (Bld) Ordered By: Hudson De Leon on 02-19-2023 Monocytes/100 WBC (Bld) 8.1 % . [facility] Neutrophils Auto (Bld) [#/Vo l]Ordered By: Hudson De Leon on 02-19-2023 Neutrophils (Bld) [#/Vol] 3.4 10*3/uL 1.8-7.7 [facility] Neutrophils/100 WBC Auto (Bl d)Ordered By: Hudson De Leon on 02-19-2023 Neutrophils/100 WBC (Bld) 71.7 % . [facility] Nitrite Test strip Ql (U)Ord ered By: Hudson De Leon on 02-19-2023 Nitrite Ql (U) Negative Negative [facility] No Panel InformationOrdered By: Hudson De Leon on 02-19-2023 Estimated GFR (CKD-EPI) > 60.0 mL/Min [facility] Creatinine Clearance (Chem N/A [facility] Nucleated erythrocytes [Pres ence] in Blood by Automated countOrdered By: Hudson De Leon on 02-19-2023 Nucleated RBC Auto Ql (Bld) 0.1 /100{WBC} 0-0.5 [facility] Platelet mean volume Auto (B ld) [Entitic vol]Ordered By: Hudson De Leon on 02-19-2023 Platelet mean volume (Bld) [Entitic vol] 9.0 fL 6.6-10.1 [facility] Platelets Auto (Bld) [#/Vol] Ordered By: Hudson De Leon on 02-19-2023 Platelets (Bld) [#/Vol] 198 10*3/uL 150-450 [facility] Potassium [Moles/volume] in Serum or PlasmaOrdered By: Hudson De Leon on 02-19-2023 Potassium [Moles/Vol] 4.0 mmol/L 3.5-5.1 [facility] Protein Auto test strip (U) [Mass/Vol]Ordered By: Hudson De Leon on 02-19-2023 Protein (U) [Mass/Vol] Negative Negative [facility] Protein [Mass/volume] in Ser um or PlasmaOrdered By: Hudson De Leon on 02-19-2023 Protein [Mass/Vol] 6.7 g/dL 6.4-8.9 [facility] RBC Auto (Bld) [#/Vol]Ordere d By: Hudson De Leon on 02-19-2023 RBC (Bld) [#/Vol] 4.55 10*6/uL 3.90-5.60 [facility] Serum or plasma albumin/glob ulin mass ratioOrdered By: Hudson De Leon on 02-19-2023 Albumin/Globulin [Mass ratio] 1.6 {ratio} [facility] Serum or plasma anion gap de terminationOrdered By: Hudson De Leon on 02-19-2023 Anion gap [Moles/Vol] 9.4 mmol/L 6.0-15.0 [facility] Sodium [Moles/volume] in Ser um or PlasmaOrdered By: Hudson De Leon on 02-19-2023 Sodium [Moles/Vol] 140 mmol/L 136-145 [facility] Specific gravity Auto test s trip (U) [Rel density]Ordered By: Hudson De Leon on 02-19-2023 Specific gravity (U) [Rel density] 1.018 1.001-1.03 0 [facility] Squamous epithelial cells de tection in urine sediment by light microscopyOrdered By: Hudson De Leon on 02-19-2023 Epithelial cells.squamous LM Ql (Urine sed) None seen [HPF] 0-2 [facility] Urea nitrogen [Mass/volume] in Serum or PlasmaOrdered By: Hudson De Leon on 02-19-2023 Urea nitrogen [Mass/Vol] 16 mg/dL 7-25 [facility] Urine bacteria detection by automated methodOrdered By: Hudson De Leon on 02-19-2023 Bacteria Auto Ql (U) None seen None Seen [facility] Urine clarity by refractomet ry automatedOrdered By: Hudsno De Leon on 02-19-2023 Clarity Refractometry automated (U) Clear Clear [facility] Urine glucose measurement by automated test strip (mass/volume)Ordered By: Hudson De Leon on 02-19-2023 Glucose Auto test strip (U) [Mass/Vol] Normal mg/dL Normal [facility] Urine hemoglobin detection b y automated test stripOrdered By: Hudson De Leon on 02-19-2023 Hemoglobin Auto test strip Ql (U) Negative Negative [facility] Urine leukocyte esterase det ection by automated test stripOrdered By: Hudson De Leon on 02-19-2023 Leukocyte esterase Auto test strip Ql (U) Negative Negative [facility] Urobilinogen Auto test strip (U) [Mass/Vol]Ordered By: Hudson De Leon on 02-19-2023 Urobilinogen (U) [Mass/Vol] Normal mg/dL Normal [facility] WBC Auto (Bld) [#/Vol]Ordere d By: Hudson De Leon on 02-19-2023 WBC (Bld) [#/Vol] 4.7 10*3/uL 4.1-10.5 [facility] pH Auto test strip (U)Ordere d By: Hudson De Leon on 02-19-2023 pH (U) 5.5 [pH] 5.0-9.0 [facility] Screenson 10-17-2022 Screens [id number] [facility] Patient Educationon 10-17-19 Patient Education Nephrology [...] ? 8 oz (237 mL) of milk, kdnxnuc-npeqbsgvsfzg-jce ry milk, and calcium-fortifiedfruit juice. Calcium-fortified means [...] Spinach (cooked), rhubarb, beets, sweet potatoes, and Brazilian chard. ? Peanuts. ? Potato chips, pitcairn islander fries, and baked potatoes with skin on. ? Nuts and nut products. ? Chocolate. ? If you regularly take a diuretic medicine, make sure to eat at least 1 or 2 servings of fruits or vegetables that are high in potassium each day. These include: ? Avocado. ? Banana. ? [place], prune, carrot, or tomato juice. ? Baked [...] fish oil, or vitamin B6. ? Take ermr-ibn-dtumopd and prescription medicines only as told by your health care provider. These include supplements. What foods should I limit? Limit your in (more content not included)... Normal [facility] Urology Office/Clinic Noteon 10-16-2022 Urology Office/Clinic Note [...] described above. Follow-up With When Contact Information CHRIS RIVERA, Shun Mirza, URL [address] [facility] [address] [place], [place] [id number]- Additional Instructions: jan 2023 with [facility], blood work Patient Education Dietary Guidelines to Help Prevent Kidney Stones IMary, personally scribed for Dr. Machado on 10/16/2022 15:04:19. . Documentation recorded by the Mary correa a (more content not included)... Normal [facility] Comment on above: Result Comment: Elec tronically Signed By: Shun MACHADO MD P\.br\Date and Time Signed: 10/16/22 15:08 EDT\.br\Electronically Co-Signed By: Mray Alicea P\.br\Date and Time Co-Signed: 10/16/22 15:04 EDT\.br\Electronically Co-Signed By: Mary Alicea\.br\Date and Time Co-Signed: 10/16/22 15:06 EDT Alanine aminotransferase [En zymatic activity/volume] in Serum or PlasmaOrdered By: Hudson De Leon on 10-15-2022 ALT [Catalytic activity/Vol] 19 U/L 7-52 [facility] Albumin [Mass/volume] in Ser um or Plasma by Bromocresol green (BCG) dye binding methoOrdered By: Hudson De Leon on 10-15-2022 Albumin BCG dye [Mass/Vol] 4.1 g/dL 3.5-5.7 [facility] Alkaline phosphatase [Enzyma tic activity/volume] in Serum or PlasmaOrdered By: Hudson De Leon on 10-15-2022 ALP [Catalytic activity/Vol] 89 U/L 34-104 [facility] Aspartate aminotransferase [ Enzymatic activity/volume] in Serum or PlasmaOrdered By: Hudson De Leon on 10-15-2022 AST [Catalytic activity/Vol] 19 U/L 13-39 [facility] Automated erythrocytes count in urine sediment (number/area)Ordered By: Hudson De Leon on 10-15-2022 RBC Auto (Urine sed) [#/Area] 1-2 [HPF] 0-4 [facility] Automated leukocytes count i n urine sediment (number/area)Ordered By: Hudson De Leon on 10-15-2022 WBC Auto (Urine sed) [#/Area] None seen [HPF] 0-4 [facility] Basophils Auto (Bld) [#/Vol] Ordered By: Hudson De Leon on 10-15-2022 Basophils (Bld) [#/Vol] 0.0 10*3/uL 0.0-0.2 [facility] Basophils/100 WBC Auto (Bld) Ordered By: Hudson De Leon on 10-15-2022 Basophils/100 WBC (Bld) 0.5 % . [facility] Bilirubin Test strip Ql (U)O rdered By: Hudson De Leon on 10-15-2022 Bilirubin Ql (U) Negative Negative [facility] Bilirubin.total [Mass/volume ] in Serum or PlasmaOrdered By: Hudson De Leon on 10-15-2022 Bilirubin [Mass/Vol] 0.6 mg/dL 0.3-1.0 [facility] Calcium [Mass/volume] in Ser um or PlasmaOrdered By: Hudson De Leon on 10-15-2022 Calcium [Mass/Vol] 8.5 mg/dL 8.6-10.3 [facility] Carbon dioxide, total [Moles /volume] in Serum or PlasmaOrdered By: Hudson De Leon on 10-15-2022 CO2 [Moles/Vol] 27.8 mmol/L 21.0-31.0 [facility] Chloride [Moles/volume] in S lenny or PlasmaOrdered By: Hudson De Leon on 10-15-2022 Chloride [Moles/Vol] 106 mmol/L 98-107 [facility] Color Auto (U)Ordered By: Maykel De Leon on 10-15-2022 Color (U) Yellow Yellow [facility] Creatinine [Mass/volume] in Serum or PlasmaOrdered By: Hudson De Leon on 10-15-2022 Creatinine [Mass/Vol] 1.09 mg/dL 0.70-1.30 [facility] Eosinophils Auto (Bld) [#/Vo l]Ordered By: Hudson De Leon on 10-15-2022 Eosinophils (Bld) [#/Vol] 0.1 10*3/uL 0.0-0.45 [facility] Eosinophils/100 WBC Auto (Bl d)Ordered By: Hudson De Leon on 10-15-2022 Eosinophils/100 WBC (Bld) 1.6 % . [facility] Erythrocyte distribution wid th Auto (RBC) [Ratio]Ordered By: Hudson De Leon on 10-15-2022 Erythrocyte distribution width (RBC) [Ratio] 14.2 % 12.0-14.8 [facility] Erythrocyte sedimentation ra te by Photometric methodOrdered By: Hudson De Leon on 10-15-2022 ESR Photometric method (Bld) [Velocity] 6 mm/hr 0-19 [facility] Globulin Calc (S) [Mass/Vol] Ordered By: Hudson De Leon on 10-15-2022 Globulin (S) [Mass/Vol] 2.8 g/dL [facility] Glucose [Mass/volume] in Ser um or PlasmaOrdered By: Hudson De Leon on 10-15-2022 Glucose [Mass/Vol] 139 mg/dL 70-100 [facility] Comment on above: ADA recommended refe rence rangeRandom Glucose Reference Range is dependent on time and content of last meal. Glucose of more than 200 mg/dL in a nonstressed, ambulatory subject supports the diagnosis of Diabetes Mellitus. Hematocrit Auto (Bld) [Volum e fraction]Ordered By: Hudson De Leon on 10-15-2022 Hematocrit (Bld) [Volume fraction] 42.6 % 38.8-50.0 [facility] Hemoglobin [Mass/volume] in BloodOrdered By: Hudson De Leon on 10-15-2022 Hemoglobin (Bld) [Mass/Vol] 14.4 g/dL 13.0-17.0 [facility] Ketones Auto test strip (U) [Mass/Vol]Ordered By: Hudson De Leon on 10-15-2022 Ketones (U) [Mass/Vol] Negative Negative [facility] - UrinalysisOrder ed By: Hudson De Leon on 10-15-2022 Hyaline casts LM Ql (Urine sed) None seen [LPF] 0-8 [facility] Leukocytes [#/volume] correc leah for nucleated erythrocytes in Blood by Automated counOrdered By: Hudson De Leon on 10-15-2022 WBC corrected for nucl RBC Auto (Bld) [#/Vol] 4.9 10*3/uL 4.1-10.5 [facility] Lymphocytes Auto (Bld) [#/Vo l]Ordered By: Hudson De Leon on 10-15-2022 Lymphocytes (Bld) [#/Vol] 1.0 10*3/uL 1.00-4.8 [facility] Lymphocytes/100 WBC Auto (Bl d)Ordered By: Hudson De Leon on 10-15-2022 Lymphocytes/100 WBC (Bld) 20.0 % . [facility] [facility]CH Auto (RBC) [Entitic mass ]Ordered By: Hudson De Leon on 10-15-2022 MCH (RBC) [Entitic mass] 31.2 pg 27.5-35.2 [facility] MCHC Auto (RBC) [Mass/Vol]Or dered By: Hudson De Leon on 10-15-2022 MCHC (RBC) [Mass/Vol] 33.7 g/dL 32.5-35.6 [facility] MCV Auto (RBC) [Entitic vol] Ordered By: Hudson De Leon on 10-15-2022 MCV (RBC) [Entitic vol] 92.8 fL 83.5-101 [facility] Monocytes Auto (Bld) [#/Vol] Ordered By: Hudson De Leon on 10-15-2022 Monocytes (Bld) [#/Vol] 0.4 10*3/uL 0.0-0.8 [facility] Monocytes/100 WBC Auto (Bld) Ordered By: Hudson De Leon on 10-15-2022 Monocytes/100 WBC (Bld) 8.6 % . [facility] Neutrophils Auto (Bld) [#/Vo l]Ordered By: Hudson De Leon on 10-15-2022 Neutrophils (Bld) [#/Vol] 3.4 10*3/uL 1.8-7.7 [facility] Neutrophils/100 WBC Auto (Bl d)Ordered By: Hudson De Leon on 10-15-2022 Neutrophils/100 WBC (Bld) 69.3 % . [facility] Nitrite Test strip Ql (U)Ord ered By: Hudson De Leon on 10-15-2022 Nitrite Ql (U) Negative Negative [facility] No Panel InformationOrdered By: Hudson De Leon on 10-15-2022 Estimated GFR (CKD-EPI) > 60.0 mL/Min [facility] Creatinine Clearance (Chem N/A [facility] Nucleated erythrocytes [Pres ence] in Blood by Automated countOrdered By: Hudson De Leon on 10-15-2022 Nucleated RBC Auto Ql (Bld) 0.1 /100{WBC} 0-0.5 [facility] Platelet mean volume Auto (B ld) [Entitic vol]Ordered By: Hudson De Leon on 10-15-2022 Platelet mean volume (Bld) [Entitic vol] 9.1 fL 6.6-10.1 [facility] Platelets Auto (Bld) [#/Vol] Ordered By: Hudson De Leon on 10-15-2022 Platelets (Bld) [#/Vol] 196 10*3/uL 150-450 [facility] Potassium [Moles/volume] in Serum or PlasmaOrdered By: Hudson De Leon on 10-15-2022 Potassium [Moles/Vol] 4.4 mmol/L 3.5-5.1 [facility] Protein Auto test strip (U) [Mass/Vol]Ordered By: Hudson De Leon on 10-15-2022 Protein (U) [Mass/Vol] Negative Negative [facility] Protein [Mass/volume] in Ser um or PlasmaOrdered By: Hudson De Leon on 10-15-2022 Protein [Mass/Vol] 6.9 g/dL 6.4-8.9 [facility] RBC Auto (Bld) [#/Vol]Ordere d By: Hudson De Leon on 10-15-2022 RBC (Bld) [#/Vol] 4.60 10*6/uL 3.90-5.60 [facility] Serum or plasma albumin/glob ulin mass ratioOrdered By: Hudson De Leon on 10-15-2022 Albumin/Globulin [Mass ratio] 1.5 {ratio} [facility] Serum or plasma anion gap de terminationOrdered By: Hudson De Leon on 10-15-2022 Anion gap [Moles/Vol] 9.6 mmol/L 6.0-15.0 [facility] Sodium [Moles/volume] in Ser um or PlasmaOrdered By: Hudson De Leon on 10-15-2022 Sodium [Moles/Vol] 139 mmol/L 136-145 [facility] Specific gravity Auto test s trip (U) [Rel density]Ordered By: Hudson De Leon on 10-15-2022 Specific gravity (U) [Rel density] 1.022 1.001-1.03 0 [facility] Squamous epithelial cells de tection in urine sediment by light microscopyOrdered By: Hudson De Leon on 10-15-2022 Epithelial cells.squamous LM Ql (Urine sed) None seen [HPF] 0-2 [facility] Urea nitrogen [Mass/volume] in Serum or PlasmaOrdered By: Hudson De Leon on 10-15-2022 Urea nitrogen [Mass/Vol] 24 mg/dL 7-25 [facility] Urine bacteria detection by automated methodOrdered By: Hudson De Leon on 10-15-2022 Bacteria Auto Ql (U) None seen None Seen [facility] Urine clarity by refractomet ry automatedOrdered By: Hudson De Leon on 10-15-2022 Clarity Refractometry automated (U) Clear Clear [facility] Urine glucose measurement by automated test strip (mass/volume)Ordered By: Hudson De Leon on 10-15-2022 Glucose Auto test strip (U) [Mass/Vol] Normal mg/dL Normal [facility] Urine hemoglobin detection b y automated test stripOrdered By: Hudson De Leon on 10-15-2022 Hemoglobin Auto test strip Ql (U) Negative Negative [facility] Urine leukocyte esterase det ection by automated test stripOrdered By: Hudson De Leon on 10-15-2022 Leukocyte esterase Auto test strip Ql (U) Negative Negative [facility] Urobilinogen Auto test strip (U) [Mass/Vol]Ordered By: Hudson De Leon on 10-15-2022 Urobilinogen (U) [Mass/Vol] Normal mg/dL Normal [facility] WBC Auto (Bld) [#/Vol]Ordere d By: Hudson De Leon on 10-15-2022 WBC (Bld) [#/Vol] 4.9 10*3/uL 4.1-10.5 [facility] pH Auto test strip (U)Ordere d By: Hudson De Leon on 10-15-2022 pH (U) 5.5 [pH] 5.0-9.0 [facility] Ambulatory Visit Summaryon 0 10-02-2022 Ambulatory [...] Primary ma (more content not included)... Normal [facility] Comment on above: Result Comment: Elec tronically Signed By: DOREEN RIVERA, Arely Pederson\Date and Time Signed: 10/02/22 14:05 EDT RAD - Ultrasound Reporton RAD - Ultrasound Report [id number]: 127 Normal [facility] Lab Reportson 09-17-2022 Lab Reports [id number]:1 27 Normal [facility] Covid-19 PCR (CVDTBH)on 08-23 SARS-CoV-2 (COVID-19) RNA LU+probe Ql (Unsp spec) Not detected Normal NOT DETECTED [facility] Comment on above: Result Comment: This test is not yet approved or cleared by the [place] FDA. When there are no FDA-approved or cleared tests available, and other criteria are met, FDA can make tests available under an emergency access mechanism called an Emergency Use Authorization (EUA). The EUA for this test is supported by the [place] Maker of Health and Human Service's (HHS's) declaration [...] SARS-CoV-2. Performed By: #### I NSULIN #### [facility] [address] [place] [address] Dr. Carolyn King SYMPTOMATIC COVID-19 ANTIGEN on 09-11-2022 EUA Statement SEE BELOW Normal [facility] Comment on above: Result Comment: This [...] sooner. Performed By: #### C VDAGS #### [facility] [address], [place] [address] Dr. Carolyn King SARS-CoV-2 (COVID-19) RNA LU+probe Ql (Unsp spec) Negative Normal NEGATIVE [facility] Comment on above: Performed By: #### C VDAGS #### [facility] [address], [place] [address] FOOT RT WO [...] LAURY ZEPEDA Date: 2022-08-31 08:09 Normal [facility] US SINGLE QUAD RT UPPERon US SINGLE [...] by: LAURY ZEPEDA Date: 2022-08-31 07:41 Normal [facility] POINT OF CARE GLUCOSEon 05-24 Glucose [Mass/Vol] 125 mg/dL Critically high 74-106 [facility] Comment on above: Performed By: #### I NSULIN #### [facility] [address] [address] [address] Carolyn King Glucose [Mass/Vol] 105 mg/dL Normal 74-106 [facility] Comment on above: Performed By: #### I NSULIN #### [facility] [address] [address] [address] Carolyn King XR FOOT RT 2Von [...] BANDAR SAENZ Date: 2022-06-07 14:29 Normal [facility] Covid-19 PCR (CVDTB)on 05-24 SARS-CoV-2 (COVID-19) RNA LU+probe Ql (Unsp spec) Not detected Normal NOT DETECTED [facility] Comment on above: Result Comment: This test is not yet approved or cleared by the [place] FDA. When there are no FDA-approved or cleared tests available, and other criteria are met, FDA can make tests available under an emergency access mechanism called an Emergency Use Authorization (EUA). The EUA for this test is supported by the [place] [employer] of Health and Human Service's (HHS's) declaration [...] SARS-CoV-2. Performed By: #### I NSULIN #### [facility] [address] [address] [address] Carolyn King Albumin [Mass/volume] in Ser um or PlasmaOrdered By: Hudson De Leon on 05-23-2022 Albumin [Mass/Vol] 3.9 g/dL 3.2-5.5 [facility] Automated erythrocytes count in urine sediment (number/area)Ordered By: Hudson De Leon on 05-23-2022 RBC Auto (Urine sed) [#/Area] None seen [HPF] 0-4 [facility] Automated leukocytes count i n urine sediment (number/area)Ordered By: Hudson De Leon on 05-23-2022 WBC Auto (Urine sed) [#/Area] None seen [HPF] 0-4 [facility] Basophils Auto (Bld) [#/Vol] Ordered By: Hudson De Leon on 05-23-2022 Basophils (Bld) [#/Vol] 0.0 10*3/uL 0.0-0.2 [facility] Basophils/100 WBC Auto (Bld) Ordered By: Hudson De Leon on 05-23-2022 Basophils/100 WBC (Bld) 0.6 % . [facility] Bilirubin Test strip Ql (U)O rdered By: Hudson De Leon on 05-23-2022 Bilirubin Ql (U) Negative Negative [facility] Color Auto (U)Ordered By: Maykel De Leon on 05-23-2022 Color (U) Yellow Yellow [facility] Creatinine and Glomerular fi ltration rate.predicted panel (S/P/Bld)Ordered By: Hudson De Leon on 05-23-2022 Creatinine [Mass/Vol] 0.92 mg/dL 0.64-1.27 [facility] Eosinophils Auto (Bld) [#/Vo l]Ordered By: Hudson De Leon on 05-23-2022 Eosinophils (Bld) [#/Vol] 0.0 10*3/uL 0.0-0.45 [facility] Eosinophils/100 WBC Auto (Bl d)Ordered By: Hudson De Leon on 05-23-2022 Eosinophils/100 WBC (Bld) 0.9 % . [facility] Erythrocyte distribution wid th Auto (RBC) [Ratio]Ordered By: Hudson De Leon on 05-23-2022 Erythrocyte distribution width (RBC) [Ratio] 13.4 % 12.0-14.8 [facility] Erythrocyte sedimentation ra te by Photometric methodOrdered By: Hudson De Leon on 05-23-2022 ESR Photometric method (Bld) [Velocity] 6 mm/hr 0-19 [facility] Estimated glomerular filtrat ion rate (GFR) non- AmericanOrdered By: Hudson De Leon on 05-23-2022 GFR/1.73 sq M.predicted among non-blacks MDRD (S/P/Bld) [Vol rate/Area] > 60 mL/Min [facility] Globulin Calc (S) [Mass/Vol] Ordered By: Hudson De Leon on 05-23-2022 Globulin (S) [Mass/Vol] 2.8 g/dL [facility] Hematocrit Auto (Bld) [Volum e fraction]Ordered By: Hudson De Leon on 05-23-2022 Hematocrit (Bld) [Volume fraction] 44.5 % 38.8-50.0 [facility] Hemoglobin [Mass/volume] in BloodOrdered By: Hudson De Leon on 05-23-2022 Hemoglobin (Bld) [Mass/Vol] 14.9 g/dL 13.0-17.0 [facility] Ketones Auto test strip (U) [Mass/Vol]Ordered By: Hudson De Leon on 05-23-2022 Ketones (U) [Mass/Vol] Negative Negative [facility] - UrinalysisOrder ed By: Hudson De Leon on 05-23-2022 Hyaline casts LM Ql (Urine sed) None seen [LPF] 0-8 [facility] Leukocytes [#/volume] correc leah for nucleated erythrocytes in Blood by Automated counOrdered By: Hudson De Leon on 05-23-2022 WBC corrected for nucl RBC Auto (Bld) [#/Vol] 5.2 10*3/uL 4.1-10.5 [facility] Lymphocytes Auto (Bld) [#/Vo l]Ordered By: Hudson De Leon on 05-23-2022 Lymphocytes (Bld) [#/Vol] 1.1 10*3/uL 1.00-4.8 [facility] Lymphocytes/100 WBC Auto (Bl d)Ordered By: Hudson De Leon on 05-23-2022 Lymphocytes/100 WBC (Bld) 21.1 % . [facility] MCH Auto (RBC) [Entitic mass ]Ordered By: Hudson De Leon on 05-23-2022 MCH (RBC) [Entitic mass] 31.2 pg 27.5-35.2 [facility] MCHC Auto (RBC) [Mass/Vol]Or dered By: Hudson De Leon on 05-23-2022 MCHC (RBC) [Mass/Vol] 33.5 g/dL 32.5-35.6 [facility] MCV Auto (RBC) [Entitic vol] Ordered By: Hudson De Leon on 05-23-2022 MCV (RBC) [Entitic vol] 93.3 fL 83.5-101 [facility] Monocytes Auto (Bld) [#/Vol] Ordered By: Hudson De Leon on 05-23-2022 Monocytes (Bld) [#/Vol] 0.5 10*3/uL 0.0-0.8 [facility] Monocytes/100 WBC Auto (Bld) Ordered By: Hudson De Leon on 05-23-2022 Monocytes/100 WBC (Bld) 10.3 % . [facility] Neutrophils Auto (Bld) [#/Vo l]Ordered By: Hudson De Leon on 05-23-2022 Neutrophils (Bld) [#/Vol] 3.5 10*3/uL 1.8-7.7 [facility] Neutrophils/100 WBC Auto (Bl d)Ordered By: Hudson De Leon on 05-23-2022 Neutrophils/100 WBC (Bld) 67.1 % . [facility] Nitrite Test strip Ql (U)Ord ered By: Hudson De Leon on 05-23-2022 Nitrite Ql (U) Negative Negative [facility] No Panel InformationOrdered By: Hudson De Leon on 05-23-2022 Estimated GFR () > 60 mL/Min [facility] Comment on above: GFR estimated refere nce range: According to KDOQI guidelines, <60 ml/min/1.73m2 is sufficient to diagnose a patient with chronic kidney disease. Pharmacy Creatinine Clearance (Chem N/A [facility] Nucleated erythrocytes [Pres ence] in Blood by Automated countOrdered By: Hudson De Leon on 05-23-2022 Nucleated RBC Auto Ql (Bld) 0.2 /100{WBC} 0-0.5 [facility] Platelet mean volume Auto (B ld) [Entitic vol]Ordered By: Hudson De Leon on 05-23-2022 Platelet mean volume (Bld) [Entitic vol] 9.4 fL 6.6-10.1 [facility] Platelets Auto (Bld) [#/Vol] Ordered By: Hudson De Leon on 05-23-2022 Platelets (Bld) [#/Vol] 234 10*3/uL 150-450 [facility] Protein Auto test strip (U) [Mass/Vol]Ordered By: Hudson De Leon on 05-23-2022 Protein (U) [Mass/Vol] Negative Negative [facility] Protein [Mass/volume] in Ser um or PlasmaOrdered By: Hudson De Leon on 05-23-2022 Protein [Mass/Vol] 6.7 g/dL 6.1-7.9 [facility] RBC Auto (Bld) [#/Vol]Ordere d By: Hudson De Leon on 05-23-2022 RBC (Bld) [#/Vol] 4.77 10*6/uL 3.90-5.60 [facility] Serum or plasma alanine gates otransferase measurement without P-5'-P (enzymatic activiOrdered By: Hudson De Leon on 05-23-2022 ALT No additional P-5'-P [Catalytic activity/Vol] 27 U/L 10-60 [facility] Serum or plasma albumin/glob ulin mass ratioOrdered By: Hudson De Leon on 05-23-2022 Albumin/Globulin [Mass ratio] 1.4 {ratio} [facility] Serum or plasma alkaline amanda sphatase measurement (enzymatic activity/volume)Ordered By: Hudson De Leon on 05-23-2022 ALP [Catalytic activity/Vol] 90 U/L 32-92 [facility] Serum or plasma anion gap de terminationOrdered By: Hudson De Leon on 05-23-2022 Anion gap [Moles/Vol] 12.3 mmol/L 6.0-15.0 [facility] Serum or plasma aspartate am inotransferase measurement (enzymatic activity/volume)Ordered By: Hudson De Leon on 05-23-2022 AST [Catalytic activity/Vol] 31 U/L 10-42 [facility] Serum or plasma calcium karl urement (mass/volume)Ordered By: Hudson De Leon on 05-23-2022 Calcium [Mass/Vol] 9.1 mg/dL 8.2-10.2 [facility] Serum or plasma chloride reba surement (moles/volume)Ordered By: Hudson De Leon on 05-23-2022 Chloride [Moles/Vol] 102 mmol/L 95-114 [facility] Serum or plasma glucose karl urement (mass/volume)Ordered By: Hudson De Leon on 05-23-2022 Glucose [Mass/Vol] 75 mg/dL 70-100 [facility] Comment on above: ADA recommended refe rence rangeRandom Glucose Reference Range is dependent on time and content of last meal. Glucose of more than 200 mg/dL in a nonstressed, ambulatory subject supports the diagnosis of Diabetes Mellitus. Serum or plasma potassium me asurement (moles/volume)Ordered By: Hudson De Leon on 05-23-2022 Potassium [Moles/Vol] 4.0 mmol/L 3.5-5.1 [facility] Serum or plasma sodium measu rement (moles/volume)Ordered By: Hudson De Leon on 05-23-2022 Sodium [Moles/Vol] 137 mmol/L 136-146 [facility] Serum or plasma total biliru bin measurement (mass/volume)Ordered By: Hudson De Leon on 05-23-2022 Bilirubin [Mass/Vol] 0.6 mg/dL 0.3-1.2 [facility] Serum or plasma total carbon dioxide measurement (moles/volume)Ordered By: Hudson De Leon on 05-23-2022 CO2 [Moles/Vol] 26.7 mmol/L 22.0-30.0 [facility] Serum or plasma urea nitroge n measurement (mass/volume)Ordered By: Hudson De Leon on 05-23-2022 Urea nitrogen [Mass/Vol] 11 mg/dL 9-23 [facility] Specific gravity Auto test s trip (U) [Rel density]Ordered By: Hudson De Leon on 05-23-2022 Specific gravity (U) [Rel density] 1.014 1.001-1.03 0 [facility] Squamous epithelial cells de tection in urine sediment by light microscopyOrdered By: Hudson De Leon on 05-23-2022 Epithelial cells.squamous LM Ql (Urine sed) None seen [HPF] 0-2 [facility] Urine bacteria detection by automated methodOrdered By: Hudson De Leon on 05-23-2022 Bacteria Auto Ql (U) None seen None Seen [facility] Urine clarity by refractomet ry automatedOrdered By: Hudson De Leon on 05-23-2022 Clarity Refractometry automated (U) Clear Clear [facility] Urine glucose measurement by automated test strip (mass/volume)Ordered By: Hudson De Leon on 05-23-2022 Glucose Auto test strip (U) [Mass/Vol] Normal mg/dL Normal [facility] Urine hemoglobin detection b y automated test stripOrdered By: Hudson De Leon on 05-23-2022 Hemoglobin Auto test strip Ql (U) Negative Negative [facility] Urine leukocyte esterase det ection by automated test stripOrdered By: Hudson De Leon on 05-23-2022 Leukocyte esterase Auto test strip Ql (U) Negative Negative [facility] Urobilinogen Auto test strip (U) [Mass/Vol]Ordered By: Hudson De Leon on 05-23-2022 Urobilinogen (U) [Mass/Vol] Normal mg/dL Normal [facility] WBC Auto (Bld) [#/Vol]Ordere d By: Hudson De Leon on 05-23-2022 WBC (Bld) [#/Vol] 5.2 10*3/uL 4.1-10.5 [facility] pH Auto test strip (U)Ordere d By: Hudson De Leon on 05-23-2022 pH (U) 5.5 [pH] 5.0-9.0 [facility] BN SPINE, CERVICAL, 2 OR 3 V IEWSon 05-02-2022 SPINE, CERVICAL, 2 OR 3 VIEWS Patient Name: JAY CARR STUDY: SPINE, CERVICAL, 2 OR 3 VIEWS; 05/02/2022 9:46 am INDICATION: cervical post op 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 COMPARISON: 08/03/2021 ACCESSION NUMBER(S): [id number] ORDERING CLINICIAN: KENTON LAWSON FINDINGS: Two views of the cervical spine. Patient is status post anterior cervical discectomy and fusion from C5-C7. No hardware complication. No acute fracture. No focal subluxation. Mild multilevel degenerative changes. IMPRESSION: Postsurgical changes status post ACDF from C5-C7. No hardware complication. Mild multilevel spondylosis. Electronically signed by: FRANCISCO FOLEY MD [facility] BN SPINE, LUMBOSACRAL; 2 OR 3 VIEWSon 05-02-2022 SPINE, LUMBOSACRAL; 2 OR 3 VIEWS Patient Name: JAY CARR STUDY: SPINE, LUMBOSACRAL; 2 OR 3 VIEWS; 05/02/2022 9:46 am INDICATION: AP/LAT M54.50: Lumbar back pain M48.062: Lumbar stenosis with neurogenic claudication. COMPARISON: 01/29/2022 ACCESSION NUMBER(S): [id number] ORDERING CLINICIAN: KENTON LAWSON FINDINGS: Two views [...] spondylosis. Electronically signed by: FRANCISCO FOLEY MD [facility] Established Visit (Orthopaed ic [...] Present Illness Jay is a pleasant 62-year-old [id number] male who presents today with his for [...] by phys (more content not included)... Normal [facility] 05-02-2022 XR Cervical spine 3 Views Normal [facility] DO Work Phone: XR Lumbar spine AP and Lateral Normal [facility] DO Work Phone: INSULINon 03-29-2022 Insulin 14.5 uIU/mL Normal 2.6-24.9 [facility] Comment on above: Performed By: #### I NSULIN #### [facility] [address] [place] [address] Dr. Carolyn King CBC AUTO DIFFon 03-28-2022 BASO # 0.0 103/ul Normal 0.0-0.1 [facility] Comment on above: Performed By: #### C BC #### [facility] [address] [place] [address] Dr. Carolyn King Basophils/100 WBC (Bld) 0.6 % Normal 0.2-2.0 [facility] Comment on above: Performed By: #### C BC #### [facility] [address] [place] [address] Dr. Carolyn King EO # 0.1 103/ul Normal 0.0-0.7 [facility] Comment on above: Performed By: #### C BC #### [facility] [address] [place] [address] Dr. Carolyn King Eosinophils/100 WBC (Bld) 1.6 % Normal 0.9-7.0 [facility] Comment on above: Performed By: #### C BC #### [facility] [address] [place] [address] Dr. Carolyn King Erythrocyte distribution width (RBC) [Ratio] 13.2 % Normal 11.0-15.0 [facility] Comment on above: Performed By: #### C BC #### [facility] [address] [place] [address] Dr. Carolyn King Hematocrit (Bld) [Volume fraction] 44.5 % Normal 42.0-54.0 [facility] Comment on above: Performed By: #### C BC #### [facility] [address] [place] [address] Dr. Carolyn King Hemoglobin (Bld) [Mass/Vol] 15.0 g/dL Normal 14.0-18.0 [facility] Comment on above: Performed By: #### C BC #### [facility] [address] [place] [address] Dr. Carolyn King IG # 0.01 10e3/ul Normal 0.00-0.03 [facility] Comment on above: Performed By: #### C BC #### [facility] [address] [place] [address] Dr. Carolyn King IG % 0.2 % Normal 0.0-0.5 [facility] Comment on above: Performed By: #### C BC #### [facility] [address] [place] [address] Dr. Carolyn King LYMPH # 1.0 103/ul Critically low 1.2-3.8 [facility] Comment on above: Performed By: #### C BC #### [facility] [address] [place] [address] Dr. Carolyn King Lymphocytes/100 WBC (Bld) 15.8 % Critically low 20.5-60.0 [facility] Comment on above: Performed By: #### C BC #### [facility] [address] [place] [address] Dr. Carolyn King MANUAL DIFF REQ NO Normal [facility] Comment on above: Performed By: #### C BC #### [facility] [address] [place] [address] Dr. Carolyn King MCH (RBC) [Entitic mass] 31.1 pg Normal 25.9-34.0 [facility] Comment on above: Performed By: #### C BC #### [facility] [address] [place] [address] Dr. Carolyn King MCHC (RBC) [Mass/Vol] 33.7 g/dL Normal 29.9-35.2 [facility] Comment on above: Performed By: #### C BC #### [facility] [address] [place] [address] Dr. Carolyn King MCV (RBC) [Entitic vol] 92.3 fL Normal 80.0-94.0 [facility] Comment on above: Performed By: #### C BC #### [facility] [address] [place] [address] Dr. Carolyn King MONO # 0.7 103/ul Normal 0.3-0.8 [facility] Comment on above: Performed By: #### C BC #### [facility] [address] [place] [address] Dr. Carolyn King Monocytes/100 WBC (Bld) 10.7 % Normal 1.7-12.0 [facility] Comment on above: Performed By: #### C BC #### [facility] [address] [place] [address] Dr. Carolyn King NEUT # 4.4 103/ul Normal 1.4-6.5 [facility] Comment on above: Performed By: #### C BC #### [facility] [address] [place] [address] Dr. Carolyn King Neutrophils/100 WBC (Bld) 71.1 % Normal 43.0-75.0 [facility] Comment on above: Performed By: #### C BC #### [facility] [address] [place] [address] Dr. Carolyn King Platelet mean volume (Bld) [Entitic vol] 10.2 fL Normal 9.5-13.5 [facility] Comment on above: Performed By: #### C BC #### [facility] [address] [place] [address] Dr. Carolyn King PLT 242 103/ul Normal 150-450 [facility] Comment on above: Performed By: #### C BC #### [facility] [address] [address] [address] Carolyn King RBC 4.82 106/ul Normal 4.70-6.10 [facility] Comment on above: Performed By: #### C BC #### [facility] [address] [address] [address] Carolyn King WBC 6.2 103/ul Normal 4.0-11.0 [facility] Comment on above: Performed By: #### C BC #### [facility] [address] [address] [address] Carolyn King FREE THYROXINE INDEX T7on FTI 2.55 Normal 1.30-4.50 [facility] Comment on above: Performed By: #### U ALLEN, TSH, T7, LIPID, CMP #### [facility] [address] [place] [address] Dr. Carolyn King T3U 30.0 % Critically low 33.0-40.0 [facility] Comment on above: Performed By: #### U ALLEN, TSH, T7, LIPID, CMP #### [facility] [address] [address] [address] Carolyn King T4 [Mass/Vol] 8.50 ug/dL Normal 4.50-12.10 [facility] Comment on above: Performed By: #### U ALLEN, TSH, T7, LIPID, CMP #### [facility] [address] [place] [address] Dr. Carolyn King GLYCOHEMOGLOBIN A1Con 2021 ADA RECOMMENDATION SEE BELOW Normal [facility] Comment on above: Result Comment: ADA RECOMMENDED LIMIT 4.0 - 6.0 ADA THERAPEUTIC TARGET < 7.0 ACTION SUGGESTED > 7.0 Performed By: #### A 1C #### [facility] [address] [place] [address] Dr. Carolyn King Glucose [Mass/Vol] 103 mg/dL Normal 74-106 [facility] Comment on above: Performed By: #### A 1C #### [facility] [address] [place] [address] Dr. Carolyn King Performed By: #### U ALLEN, TSH, T7, LIPID, CMP #### [facility] [address] [place] [address] Dr. Carolyn King HbA1c (Bld) [Mass fraction] 5.2 % Normal 4.5-6.2 [facility] Comment on above: Performed By: #### A 1C #### [facility] [address] [place] [address] Dr. Carolyn King LIPID PROFILEon 03-28-2022 CHOL-HDL RATIO NORM SEE BELOW Normal [facility] Comment on above: Result Comment: 3.3 - 4.4 LOW RISK 4.4 - 7.1 AVERAGE RISK 7.1 - 11.0 MODERATE RISK >11.0 HIGH RISK Performed By: #### U ALLEN, TSH, T7, LIPID, CMP #### [facility] [address] [place] [address] Dr. Carolyn King Cholesterol [Mass/Vol] 157 mg/dL Normal <=200 [facility] Comment on above: Performed By: #### U ALLEN, TSH, T7, LIPID, CMP #### [facility] [address] [place] [address] Dr. Carolyn King Cholesterol in HDL [Mass/Vol] 49 mg/dL Normal 40-60 [facility] Comment on above: Performed By: #### U ALLEN, TSH, T7, LIPID, CMP #### [facility] [address] [place] [address] Dr. Carolyn King Cholesterol in LDL [Mass/Vol] 85.6 mg/dL Normal [facility] Comment on above: Performed By: #### U ALLEN, TSH, T7, LIPID, CMP #### [facility] [address] [place] [address] Dr. Carolyn King Cholesterol.total/Chol esterol in HDL [Mass ratio] 3.2 {ratio} Normal [facility] Comment on above: Performed By: #### U ALLEN, TSH, T7, LIPID, CMP #### [facility] [address] [place] [address] Dr. Carolyn King HDL NORMAL > or = 60 mg/dl - LO W CARDIOVASCULAR RISK <40 mg/dl - HIGH CARDIOVASCULAR RISK Normal [facility] Comment on above: Performed By: #### U ALLEN, TSH, T7, LIPID, CMP #### [facility] [address] [address] [address] Carolyn King LDL CALC NORMAL SEE BELOW Normal [facility] Comment on above: Result Comment: <100 mg/dl OPTIMAL 100 - 129 mg/dl NEAR OR ABOVE OPTIMAL 130 - 159 mg/dl BORDERLINE HIGH 160 - 189 mg/dl HIGH >190 mg/dl VERY HIGH Performed By: #### U ALLEN, TSH, T7, LIPID, CMP #### [facility] [address] [address] [address] Carolyn King Triglyceride [Mass/Vol] 112 mg/dL Normal <=150 [facility] Comment on above: Performed By: #### U ALLEN, TSH, T7, LIPID, CMP #### [facility] [address] [address] [address] Carolyn King VLDL CALC 22.4 mg/dL Normal [facility] Comment on above: Performed By: #### U ALLEN, TSH, T7, LIPID, CMP #### [facility] [address] [address] [address] Carolyn King PROF 14(COMP METB)on 022 Albumin [Mass/Vol] 3.9 g/dL Normal 3.4-5.0 [facility] Comment on above: Performed By: #### U ALLEN, TSH, T7, LIPID, CMP #### [facility] [address] [address] [address] Carolyn King Albumin/Globulin [Mass ratio] 1.1 {ratio} Normal [facility] Comment on above: Performed By: #### U ALLEN, TSH, T7, LIPID, CMP #### [facility] [address] [address] [address] Carolyn King ALP [Catalytic activity/Vol] 108 U/L Normal 46-116 [facility] Comment on above: Performed By: #### U ALLEN, TSH, T7, LIPID, CMP #### [facility] [address] [address] [address] Carolyn King ALT [Catalytic activity/Vol] 28 U/L Normal 16-63 [facility] Comment on above: Performed By: #### U ALLEN, TSH, T7, LIPID, CMP #### [facility] [address] [address] [address] Carolyn King Anion gap [Moles/Vol] 6.6 mmol/L Normal [facility] Comment on above: Performed By: #### U ALLEN, TSH, T7, LIPID, CMP #### [facility] [address] [address] [address] Carolyn King AST [Catalytic activity/Vol] 22 U/L Normal 15-37 [facility] Comment on above: Performed By: #### U ALLEN, TSH, T7, LIPID, CMP #### [facility] [address] [place] [address] Dr. Carolyn King Bilirubin [Mass/Vol] 0.6 mg/dL Normal 0.2-1.0 [facility] Comment on above: Performed By: #### U ALLEN, TSH, T7, LIPID, CMP #### [facility] [address] [address] [address] Carolyn King Calcium [Mass/Vol] 8.7 mg/dL Normal 8.5-10.1 [facility] Comment on above: Performed By: #### U ALLEN, TSH, T7, LIPID, CMP #### [facility] [address] [address] [address] Carolyn King Chloride [Moles/Vol] 105 mmol/L Normal 98-107 [facility] Comment on above: Performed By: #### U ALLEN, TSH, T7, LIPID, CMP #### [facility] [address] [address] [address] Carolyn King CO2 [Moles/Vol] 30.6 mmol/L Normal 21.0-32.0 [facility] Comment on above: Performed By: #### U ALLEN, TSH, T7, LIPID, CMP #### [facility] [address] [address] [address] Carolyn King Creatinine [Mass/Vol] 0.96 mg/dL Normal 0.70-1.30 [facility] Comment on above: Performed By: #### U ALLEN, TSH, T7, LIPID, CMP #### [facility] [address] [address] [address] Carolyn King EGFR-AF ETHIOPIAN >60 Normal >=60 [facility] Comment on above: Performed By: #### U ALLEN, TSH, T7, LIPID, CMP #### [facility] [address] [address] [address] Carolyn King EGFR-NON AF ETHIOPIAN >60 Normal >=60 [facility] Comment on above: Performed By: #### U ALLEN, TSH, T7, LIPID, CMP #### [facility] [address] [address] [address] Carolyn King Globulin (S) [Mass/Vol] 3.5 g/dL Normal [facility] Comment on above: Performed By: #### U ALLEN, TSH, T7, LIPID, CMP #### [facility] [address] [place] [address] Dr. Carolyn King Potassium [Moles/Vol] 4.2 mmol/L Normal 3.5-5.1 [facility] Comment on above: Performed By: #### U ALLEN, TSH, T7, LIPID, CMP #### [facility] [address] [place] [address] Dr. Carolyn King Protein [Mass/Vol] 7.4 g/dL Normal 6.4-8.2 [facility] Comment on above: Performed By: #### U ALLEN, TSH, T7, LIPID, CMP #### [facility] [address] [address] [address] Carolyn King Sodium [Moles/Vol] 138 mmol/L Normal 136-145 [facility] Comment on above: Performed By: #### U ALLEN, TSH, T7, LIPID, CMP #### [facility] [address] [place] [address] Dr. Carolyn King Urea nitrogen [Mass/Vol] 16.0 mg/dL Normal 7.0-18.0 [facility] Comment on above: Performed By: #### U ALLEN, TSH, T7, LIPID, CMP #### [facility] [address] [address] [address] Carolyn King Urea nitrogen/Creatinine [Mass ratio] 16.7 mg/mg Normal [facility] Comment on above: Performed By: #### U ALLEN, TSH, T7, LIPID, CMP #### [facility] [address] [address] [address] Craolyn King TSHon 03-28-2022 TSH 1.986 uIU/mL Normal 0.358-3.74 0 [facility] Comment on above: Performed By: #### U ALLEN, TSH, T7, LIPID, CMP #### [facility] [address] [address] [address] Carolyn King URIC ACID SERUMon 03-28-2022 Urate [Mass/Vol] 5.5 mg/dL Normal 3.5-7.2 [facility] Comment on above: Performed By: #### U ALLEN, TSH, T7, LIPID, CMP #### [facility] [address] [address] [address] Carolyn King Ammonium urate crystals dete ction in stone by infrared spectroscopyOrdered By: Shun Machado on 02-15-2022 Ammonium urate crystals Infrared spectroscopy Ql (Stone) N/A [facility] Basophils Auto (Bld) [#/Vol] Ordered By: Steve Pina on 02-15-2022 Basophils (Bld) [#/Vol] 0.0 10*3/uL 0.0-0.2 [facility] Basophils/100 WBC Auto (Bld) Ordered By: Steve Pina on 02-15-2022 Basophils/100 WBC (Bld) 0.9 % . [facility] Blood hemoglobin measurement (mass/volume)Ordered By: Steve Pina on 02-15-2022 Hemoglobin (Bld) [Mass/Vol] 14.2 g/dL 13.0-17.0 [facility] Blood leukocytes automated c ount (number/volume)Ordered By: Steve Pina on 02-15-2022 WBC (Bld) [#/Vol] 4.5 10*3/uL 4.5-11.0 [facility] Calcium bilirubinate measure mentOrdered By: Shun Machado on 02-15-2022 Calcium bilirubinate (Stone) [Mass fraction] N/A [facility] Calcium carbonate measuremen tOrdered By: Shun Machado on 02-15-2022 Calcium carbonate (Stone) [Mass fraction] N/A [facility] Calcium hydrogen phosphate d ihydrate/Total in StoneOrdered By: Shun Machado on 02-15-2022 Calcium hydrogen phosphate dihydrate (Stone) [Mass fraction] N/A [facility] Calcium oxalate dihydrate cr ystals detection in stone by infrared spectroscopyOrdered By: Shun Machado on 02-15-2022 Calcium oxalate dihydrate crystals Infrared spectroscopy Ql (Stone) 10 % . [facility] Calcium oxalate monohydrate/ Total in StoneOrdered By: Shun Machado on 02-15-2022 Calcium oxalate monohydrate (Stone) [Mass fraction] 90 % . [facility] Calcium phosphate measuremen tOrdered By: Shun Machado on 02-15-2022 Calcium phosphate (Stone) [Mass fraction] N/A [facility] Calculus analysis interpreta tion in stoneOrdered By: Shun Machado on 02-15-2022 Calculus analysis [Interp] N/A [facility] Calculus analysis [Interp] See comment . [facility] Comment on above: Physician questions regarding Calculi Analysis contact [facility] at: [phone]. Calculi report will follow via computer, mail or side piece coverer delivery. Calculus analysis with calcu iggy photography interpretation in stoneOrdered By: Shun Machado on 02-15-2022 Calculus analysis with calculus photography [Interp] See comment . [facility] Comment on above: Photograph will foll ow under a separate cover Cellular material measuremen t in stone by estimated (mass/mass)Ordered By: Shun Machado on 02-15-2022 Cellular material Est (Stone) [Mass/Mass] N/A [facility] Cholesterol/Total in StoneOr dered By: Shun Machado on 02-15-2022 Cholesterol (Stone) [Mass fraction] N/A [facility] Composition of stoneOrdered By: Shun Machado on 02-15-2022 Composition Nom (Stone) See comment . [facility] Comment on above: Percentage (Represen ts the % composition) Creatinine and Glomerular fi ltration rate.predicted panel (S/P/Bld)Ordered By: Steve Pina on 02-15-2022 Creatinine [Mass/Vol] 0.96 mg/dL 0.64-1.27 [facility] Cystine measurementOrdered B y: Shun Machado on 02-15-2022 Cystine (Unsp spec) [Moles/Vol] N/A [facility] Determination of color of ca lculusOrdered By: Shun Machado on 02-15-2022 Color (Stone) Brown . [facility] Eosinophils Auto (Bld) [#/Vo l]Ordered By: Steve Pina on 02-15-2022 Eosinophils (Bld) [#/Vol] 0.1 10*3/uL 0.0-0.45 [facility] Eosinophils/100 WBC Auto (Bl d)Ordered By: Steve Pina on 02-15-2022 Eosinophils/100 WBC (Bld) 2.7 % . [facility] Erythrocyte distribution wid th Auto (RBC) [Ratio]Ordered By: Steve Pina on 02-15-2022 Erythrocyte distribution width (RBC) [Ratio] 14.0 % 12.0-14.8 [facility] Estimated glomerular filtrat ion rate (GFR) non- AmericanOrdered By: Steve Pina on 02-15-2022 GFR/1.73 sq M.predicted among non-blacks MDRD (S/P/Bld) [Vol rate/Area] > 60 mL/Min [facility] Hematocrit Auto (Bld) [Volum e fraction]Ordered By: Steve Pina on 02-15-2022 Hematocrit (Bld) [Volume fraction] 42.2 % 38.8-50.0 [facility] Hydroxyapatite [Energy Diffe rence] in 24 hour UrineOrdered By: Shun Machado on 02-15-2022 Hydroxyapatite (24H U) [Energy diff] N/A [facility] - Hematology and Cell countsOrdered By: Steve Pina on 02-15-2022 Nucleated RBC/100 WBC (Bld) [Ratio] 0.0 % 0-0.5 [facility] Lymphocytes Auto (Bld) [#/Vo l]Ordered By: Steve Pina on 02-15-2022 Lymphocytes (Bld) [#/Vol] 1.0 10*3/uL 1.00-4.8 [facility] Lymphocytes/100 WBC Auto (Bl d)Ordered By: Steve Pina on 02-15-2022 Lymphocytes/100 WBC (Bld) 21.3 % . [facility] MCH Auto (RBC) [Entitic mass ]Ordered By: Steve Pina on 02-15-2022 MCH (RBC) [Entitic mass] 31.0 pg 27.5-35.2 [facility] MCHC Auto (RBC) [Mass/Vol]Or dered By: Steve Pina on 02-15-2022 MCHC (RBC) [Mass/Vol] 33.7 g/dL 32.5-35.6 [facility] MCV Auto (RBC) [Entitic vol] Ordered By: Steve Pina on 02-15-2022 MCV (RBC) [Entitic vol] 92.1 fL 83.5-101 [facility] Measurement of proportion of calculus composed of dried blood (mass/mass)Ordered By: Shun Machado on 02-15-2022 Blood.dried (Stone) [Mass fraction] N/A [facility] Monocytes Auto (Bld) [#/Vol] Ordered By: Steve Pina on 02-15-2022 Monocytes (Bld) [#/Vol] 0.5 10*3/uL 0.0-0.8 [facility] Monocytes/100 WBC Auto (Bld) Ordered By: Steve Pina on 02-15-2022 Monocytes/100 WBC (Bld) 10.1 % . [facility] Neutrophils Auto (Bld) [#/Vo l]Ordered By: Steve iPna on 02-15-2022 Neutrophils (Bld) [#/Vol] 3.0 10*3/uL 1.8-7.7 [facility] Neutrophils/100 WBC Auto (Bl d)Ordered By: Steve Pina on 02-15-2022 Neutrophils/100 WBC (Bld) 65.0 % . [facility] Newberyite/Total in StoneOrd ered By: Shun Machado on 02-15-2022 Newberyite (Stone) [Mass fraction] N/A [facility] No Panel InformationOrdered By: Shun Machado on 02-15-2022 Stone 2,8 Dihydroxyadenine N/A [facility] Stone Analysis Disclaimer See comment . [facility] Comment on above: This test was develo ped and its performance characteristics determined by [facility]. It has not been cleared or approved by the Food and Drug Administration. Performed at: [facility] Stone Analysis [address] [place] [address] Dr Arndt, [place], [place] [id number] [employer] Installer: Riley Parikh PhD, Phone: [phone] Stone [facility]irubinate N/A [facility] Stone Calcium Palmitate N/A [facility] Stone Calcium Stearate N/A [facility] Stone Carbonate Apatite N/A [facility] Stone Drug or Metabolite N/A [facility] Stone Other Constituent N/A [facility] Stone Xanthine N/A [facility] No Panel InformationOrdered By: Steve Pina on 02-15-2022 Estimated GFR () > 60 mL/Min [facility] Comment on above: GFR estimated refere nce range: According to KDOQI guidelines, <60 ml/min/1.73m2 is sufficient to diagnose a patient with chronic kidney disease. Pharmacy Creatinine Clearance (Chem 93.62 [facility] Platelet mean volume Auto (B ld) [Entitic vol]Ordered By: Steve Pina on 02-15-2022 Platelet mean volume (Bld) [Entitic vol] 7.9 fL 6.6-10.1 [facility] Platelets Auto (Bld) [#/Vol] Ordered By: Steve Pina on 02-15-2022 Platelets (Bld) [#/Vol] 202 10*3/uL 150-450 [facility] RBC Auto (Bld) [#/Vol]Ordere d By: Steve Pina on 02-15-2022 RBC (Bld) [#/Vol] 4.58 10*6/uL 3.90-5.60 [facility] Serum or plasma calcium karl urement (mass/volume)Ordered By: Steve Pina on 02-15-2022 Calcium [Mass/Vol] 9.0 mg/dL 8.2-10.2 [facility] Serum or plasma chloride reba surement (moles/volume)Ordered By: Steve Pina on 02-15-2022 Chloride [Moles/Vol] 102 mmol/L 95-114 [facility] Serum or plasma glucose karl urement (mass/volume)Ordered By: Steve Pina on 02-15-2022 Glucose [Mass/Vol] 108 mg/dL 70-100 [facility] Comment on above: ADA recommended refe rence range Random Glucose Reference Range is dependent on time and content of last meal. Glucose of more than 200 mg/dL in a nonstressed, ambulatory subject supports the diagnosis of Diabetes Mellitus. Serum or plasma potassium me asurement (moles/volume)Ordered By: Steve Pina on 02-15-2022 Potassium [Moles/Vol] 3.9 mmol/L 3.5-5.1 [facility] Serum or plasma sodium measu rement (moles/volume)Ordered By: Steve Pina on 02-15-2022 Sodium [Moles/Vol] 137 mmol/L 136-146 [facility] Serum or plasma total carbon dioxide measurement (moles/volume)Ordered By: tSeve Pian on 02-15-2022 CO2 [Moles/Vol] 28.0 mmol/L 22.0-30.0 [facility] Serum or plasma urea nitroge n measurement (mass/volume)Ordered By: Steve Pina on 02-15-2022 Urea nitrogen [Mass/Vol] 11 mg/dL 9-23 [facility] Size [Entitic volume] of Sto neOrdered By: Shun Machado on 02-15-2022 Size (Stone) [Entitic vol] 5x3 mm . [facility] Comment on above: Multiple pieces rece ived. Dimensions of the largest piece reported. Sodium urate crystals detect ion in stone by infrared spectroscopyOrdered By: Shun Machado on 02-15-2022 Sodium urate crystals Infrared spectroscopy Ql (Stone) N/A [facility] Specimen source subject [Typ e]Ordered By: Shun Machado on 02-15-2022 Specimen source subject Nom See comment . [facility] Comment on above: Right Ureter Triamterene measurement in c alculusOrdered By: Shun Machado on 02-15-2022 Triamterene (Stone) [Mass fraction] N/A [facility] Triple phosphate/Total in St oneOrdered By: Shun Machado on 02-15-2022 Triple phosphate (Stone) [Mass fraction] N/A [facility] Uric acid dihydrate crystals detection in stone by infrared spectroscopyOrdered By: Shun Machado on 02-15-2022 Urate dihydrate crystals Infrared spectroscopy Ql (Stone) N/A [facility] XR ANKLE RT MIN 3 VIEWSon [...] LAURY ZEPEDA Date: 2022-02-15 06:59 Normal [facility] COVID-19 Positive/NegativeOr dered By: Shun Machado on 02-13-2022 SARS-CoV-2 (COVID-19) N gene LU+probe Ql (Resp) Negative Negative [facility] Comment on above: Testing for SARS-CoV -2 by RT-PCR This test was developed and its performance characteristics determined by [employer] ([employer]) and validated at the [facility]. This test has not been FDA [...] claudication. COMPARISON: November 08, 2021 ACCESSION NUMBER(S): [id number] ORDERING CLINICIAN: KENTON LAWSON FINDINGS: Status post anterior and posterior fusion L3-L5 unchanged prior examination with disc space replacement and posterior pedicle screws. Alignment normal. Upper lumbar degenerative changes greatest at L2-3 again noted. IMPRESSION: Satisfactory and unchanged appearance status post L3-L5 fusion. Electronically signed by: JENI SNYDER MD [facility] Established Visit (Orthopaed ic Surgery)on 01-29-2022 Established Visit (Orthopaedic Surgery) Diagnoses/Problems Assessed Lumbar stenosis with neurogenic claudication (724.03) (M48.062) Orders Lumbar stenosis with neurogenic claudication Xray BN Spine, Lumbosacral; 2 or 3 Views; Status:Resulted - Preliminary; Done: [id number] 10:34AM Radiologist to Determine Optimal Study : Y What are the patient's signs and symptoms? : lumbar post-op Chief Complaint fuv lumbar pain History of Present Illness Jya is a very pleasant 61-year-old male who [...] Xray BN Spine, Lumbosacral; 2 or 3 [id number] 10:34AHIKenton fernández Test NameResultFlagReference Xray Lumbar Spine AP + Lateral Please click on the link to view the study images Signatures Electronically signed by : Kenton Lawson PA-C; Jan 29 2022 10:44AM EST (Author) Normal [facility] 01-29-2022 XR Lumbar spine AP [...] BANDAR SAENZ Date: 2022-01-29 21:07 Normal [facility] Activated partial thrombopla stin time (aPTT) in platelet poor plasma by coagulation aOrdered By: Shun Machado on 01-17-2022 aPTT Coag (PPP) [Time] 36.3 s 25.1-36.5 [facility] COVID-19 Positive/NegativeOr dered By: Shun Machado on 01-17-2022 SARS-CoV-2 (COVID-19) N gene LU+probe Ql (Resp) Negative Negative [facility] Comment on above: Testing for SARS-CoV -2 by RT-PCR This test was developed and its performance characteristics determined by [employer] ([employer]) and validated at the [facility]. This test has not been FDA [...] PT Coag (PPP) [Time] 11.9 s 9.0-12.9 [facility] Platelet poor plasma interna tional normalized ratio (INR) by coagulation assay (relatOrdered By: Shun Machado on 01-17-2022 INR Coag (PPP) [Relative time] 1.1 {INR} [facility] Comment on above: INR Therapeutic Rang [...] BANDAR SAENZ Date: 2022-01-11 16:29 Normal [facility] CBC AUTO DIFFon 01-09-2022 BASO # 0.0 103/ul Normal 0.0-0.1 [facility] Comment on above: Performed By: #### C BC #### [facility] [address] [place] [address] Dr. Carolyn King Basophils/100 WBC (Bld) 0.4 % Normal 0.2-2.0 [facility] Comment on above: Performed By: #### C BC #### [facility] [address] [place] [address] Dr. Carolyn King EO # 0.0 103/ul Normal 0.0-0.7 [facility] Comment on above: Performed By: #### C BC #### [facility] [address] [place] [address] Dr. Carolyn King Eosinophils/100 WBC (Bld) 0.3 % Critically low 0.9-7.0 [facility] Comment on above: Performed By: #### C BC #### [facility] [address] [place] [address] Dr. Carolyn King Erythrocyte distribution width (RBC) [Ratio] 12.6 % Normal 11.0-15.0 [facility] Comment on above: Performed By: #### C BC #### [facility] [address] [place] [address] Dr. Carolyn King Hematocrit (Bld) [Volume fraction] 45.6 % Normal 42.0-54.0 [facility] Comment on above: Performed By: #### C BC #### [facility] [address] [place] [address] Dr. Carolyn King Hemoglobin (Bld) [Mass/Vol] 15.6 g/dL Normal 14.0-18.0 [facility] Comment on above: Performed By: #### C BC #### [facility] [address] [place] [address] Dr. Carolyn King IG # 0.02 10e3/ul Normal 0.00-0.03 [facility] [facility] Comment on above: Performed By: #### C BC #### [facility] [address] [place] [address] Dr. Carolyn King IG % 0.3 % Normal 0.0-0.5 [facility] Comment on above: Performed By: #### C BC #### [facility] [address] [place] [address] Dr. Carolyn King LYMPH # 0.8 103/ul Critically low 1.2-3.8 [facility] Comment on above: Performed By: #### C BC #### [facility] [address] [place] [address] Dr. Carolyn King Lymphocytes/100 WBC (Bld) 11.4 % Critically low 20.5-60.0 [facility] Comment on above: Performed By: #### C BC #### [facility] [address] [place] [address] Dr. Carolyn King MANUAL DIFF REQ NO Normal [facility] Comment on above: Performed By: #### C BC #### [facility] [address] [place] [address] Dr. Carolyn King MCH (RBC) [Entitic mass] 30.8 pg Normal 25.9-34.0 [facility] Comment on above: Performed By: #### C BC #### [facility] [address] [place] [address] Dr. Carolyn King MCHC (RBC) [Mass/Vol] 34.2 g/dL Normal 29.9-35.2 [facility] Comment on above: Performed By: #### C BC #### [facility] [address] [place] [address] Dr. Carolyn King MCV (RBC) [Entitic vol] 89.9 fL Normal 80.0-94.0 [facility] Comment on above: Performed By: #### C BC #### [facility] [address] [place] [address] Dr. Carolyn King MONO # 0.6 103/ul Normal 0.3-0.8 [facility] Comment on above: Performed By: #### C BC #### [facility] [address] [place] [address] Dr. Carolyn King Monocytes/100 WBC (Bld) 8.5 % Normal 1.7-12.0 [facility] Comment on above: Performed By: #### C BC #### [facility] [address] [place] [address] Dr. Carolyn King NEUT # 5.8 103/ul Normal 1.4-6.5 [facility] Comment on above: Performed By: #### C BC #### [facility] [address] [place] [address] Dr. Carolyn King Neutrophils/100 WBC (Bld) 79.1 % Critically high 43.0-75.0 [facility] Comment on above: Performed By: #### C BC #### [facility] [address] [place] [address] Dr. Carolyn King Platelet mean volume (Bld) [Entitic vol] 10.7 fL Normal 9.5-13.5 [facility] Comment on above: Performed By: #### C BC #### [facility] [address] [place] [address] Dr. Carolyn King PLT 235 103/ul Normal 150-450 [facility] Comment on above: Performed By: #### C BC #### [facility] [address], [place] [address] Dr. Carolyn King RBC 5.07 106/ul Normal 4.70-6.10 [facility] Comment on above: Performed By: #### C BC #### [facility] [address], [place] [address] Dr. Carolyn King WBC 7.4 103/ul Normal 4.0-11.0 [facility] Comment on above: Performed By: #### C BC #### [facility] [address], [place] [address] ABD/PELVIS WO CONon [...] LAURY ZEPEDA Date: 2022-01-09 13:38 Normal [facility] URINE PROFILEon 2 Bilirubin Ql (U) Negative Normal NEGATIVE [facility] Comment on above: Performed By: #### I NSULIN #### [facility] [address] [place] [address] Dr. Carolyn King Clarity (U) CLEAR Normal CLEAR [facility] Comment on above: Performed By: #### I NSULIN #### [facility] [address] [place] [address] Dr. Carolyn King Color (U) LT. YELLOW Normal YELLOW [facility] Comment on above: Performed By: #### I NSULIN #### [facility] [address] [address] [address] Carolyn King ERUAHD A micrscopic examina tion will be performed if indicated. Normal [facility] Comment on above: Performed By: #### I NSULIN #### [facility] [address] [address] [address] Carolyn King Glucose Ql (U) Negative Normal NEGATIVE [facility] Comment on above: Performed By: #### I NSULIN #### [facility] [address] [address] [address] Carolyn King Hemoglobin Ql (U) MODERATE Abnormal NEGATIVE [facility] Comment on above: Performed By: #### I NSULIN #### [facility] [address] [address] [address] Carolyn King Ketones Ql (U) Negative Normal NEGATIVE [facility] Comment on above: Performed By: #### I NSULIN #### [facility] [address] [place] [address] Dr. Carolyn King LEUKOCYTES Negative Normal NEGATIVE [facility] Comment on above: Performed By: #### I NSULIN #### [facility] [address] [place] [address] Dr. Carolyn King Nitrite Ql (U) Negative Normal NEGATIVE [facility] Comment on above: Performed By: #### I NSULIN #### [facility] [address] [place] [address] Dr. Carolyn King pH (U) 6.0 [pH] Normal 5-9 [facility] Comment on above: Performed By: #### I NSULIN #### [facility] [address] [place] [address] Dr. Carolyn King SPEC GRAVITY 1.010 Normal 1.005-<=1. 025 [facility] Comment on above: Performed By: #### I NSULIN #### [facility] [address] [place] [address] Dr. Carolyn King UA PROTEIN Negative Normal NEGATIVE/ TRACE [facility] Comment on above: Performed By: #### I NSULIN #### [facility] [address] [place] [address] Dr. Carolyn King UR MICRO IND INDICATED Normal [facility] Comment on above: Performed By: #### I NSULIN #### [facility] [address] [place] [address] Dr. Carolyn King Urobilinogen Qn (U) 0.2 {Keren'U}/dL Normal 0.2 - 1. 0 [facility] Comment on above: Performed By: #### I NSULIN #### [facility] [address] [place] [address] Dr. Carolyn King LIPASEon 01-09-2022 Lipase [Catalytic activity/Vol] 98.0 U/L Normal 73.0-393.0 [facility] Comment on above: Performed By: #### I NSULIN #### [facility] [address] [place] [address] Dr. Carolyn King PROF 14(COMP METB)on 022 Albumin [Mass/Vol] 4.0 g/dL Normal 3.4-5.0 [facility] Comment on above: Performed By: #### I NSULIN #### [facility] [address] [place] [address] Dr. Carolyn King Albumin/Globulin [Mass ratio] 1.1 {ratio} Normal [facility] Comment on above: Performed By: #### I NSULIN #### [facility] [address] [place] [address] Dr. Carolyn King ALP [Catalytic activity/Vol] 112 U/L Normal 46-116 [facility] Comment on above: Performed By: #### I NSULIN #### [facility] [address] [place] [address] Dr. Carolyn King ALT [Catalytic activity/Vol] 27 U/L Normal 16-63 [facility] Comment on above: Performed By: #### I NSULIN #### [facility] [address] [place] [address] Dr. Carolyn King Anion gap [Moles/Vol] 14.9 mmol/L Normal [facility] Comment on above: Performed By: #### I NSULIN #### [facility] [address] [place] [address] Dr. Carolyn King AST [Catalytic activity/Vol] 22 U/L Normal 15-37 [facility] Comment on above: Performed By: #### I NSULIN #### [facility] [address] [place] [address] Dr. Carolyn King Bilirubin [Mass/Vol] 0.5 mg/dL Normal 0.2-1.0 [facility] Comment on above: Performed By: #### I NSULIN #### [facility] [address] [place] [address] Dr. Carolyn King Calcium [Mass/Vol] 9.1 mg/dL Normal 8.5-10.1 [facility] Comment on above: Performed By: #### I NSULIN #### [facility] [address] [place] [address] Dr. Carolyn King Chloride [Moles/Vol] 103 mmol/L Normal 98-107 [facility] Comment on above: Performed By: #### I NSULIN #### [facility] [address] [place] [address] Dr. Carolyn King CO2 [Moles/Vol] 26.0 mmol/L Normal 21.0-32.0 [facility] Comment on above: Performed By: #### I NSULIN #### [facility] [address] [address] [address] Carolyn King Creatinine [Mass/Vol] 1.09 mg/dL Normal 0.70-1.30 [facility] Comment on above: Performed By: #### I NSULIN #### [facility] [address] [address] [address] Carolyn King EGFR-AF ETHIOPIAN >60 Normal >=60 [facility] Comment on above: Performed By: #### I NSULIN #### [facility] [address] [place] [address] Dr. Carolyn King EGFR-NON AF ETHIOPIAN >60 Normal >=60 [facility] Comment on above: Performed By: #### I NSULIN #### [facility] [address] [place] [address] Dr. Carolyn King Globulin (S) [Mass/Vol] 3.8 g/dL Normal [facility] Comment on above: Performed By: #### I NSULIN #### [facility] [address] [place] [address] Dr. Carolyn King Glucose [Mass/Vol] 97 mg/dL Normal 74-106 [facility] Comment on above: Performed By: #### I NSULIN #### [facility] [address] [place] [address] Dr. Carolyn King Potassium [Moles/Vol] 3.9 mmol/L Normal 3.5-5.1 [facility] Comment on above: Performed By: #### I NSULIN #### [facility] [address] [place] [address] Dr. Carolyn King Protein [Mass/Vol] 7.8 g/dL Normal 6.4-8.2 [facility] Comment on above: Performed By: #### I NSULIN #### [facility] [address] [place] [address] Dr. Carolyn King Sodium [Moles/Vol] 140 mmol/L Normal 136-145 [facility] Comment on above: Performed By: #### I NSULIN #### [facility] [address] [place] [address] Dr. Carolyn King Urea nitrogen [Mass/Vol] 16.0 mg/dL Normal 7.0-18.0 [facility] Comment on above: Performed By: #### I NSULIN #### [facility] [address] [place] [address] Dr. Carolyn King Urea nitrogen/Creatinine [Mass ratio] 14.7 mg/mg Normal [facility] Comment on above: Performed By: #### I NSULIN #### [facility] [address] [place] [address] Dr. Carolyn King URINE MICROSCOPIC ONLYon BACTERIA NONE SEEN Normal NONE SEEN [facility] Comment on above: Performed By: #### I NSULIN #### [facility] [address] [place] [address] Dr. Carolyn King Bacteria identified Cx Nom (U) NOT INDICATED Normal [facility] Comment on above: Performed By: #### I NSULIN #### [facility] [address] [place] [address] Dr. Carolyn King CAST NONE SEEN Normal NONE SEEN [facility] Comment on above: Performed By: #### I NSULIN #### [facility] [address] [place] [address] Dr. Carolyn King Crystals LM Nom (Urine sed) NONE SEEN Normal NONE SEEN [facility] Comment on above: Performed By: #### I NSULIN #### [facility] [address] [place] [address] Dr. Carolyn King Epithelial cells LM Ql (Urine sed) NONE SEEN Normal NONE SEEN /RARE [facility] Comment on above: Performed By: #### I NSULIN #### [facility] [address] [place] [address] Dr. Carolyn King MUCOUS NONE SEEN Normal NONE SEEN [facility] Comment on above: Performed By: #### I NSULIN #### [facility] [address] [place] [address] Dr. Carolyn King RBC 2-5 Abnormal 0-2 [facility] Comment on above: Performed By: #### I NSULIN #### [facility] [address], [place] [address] Dr. Carolyn King WBC 0-2 Abnormal NONE SEEN [facility] Comment on above: Performed By: #### I NSULIN #### [facility] [address], [place] [address] Dr. Carolyn King US SINGLE QUAD RT [...] by: BANDAR QUEZADA Date: 2022-01-05 10:15 Normal [facility] NM HEPATOBILIARY SCAN W EFon 12-27-2021 NM HEPATOBILIARY SCAN W EF HISTORY: Right upper [...] by: LAURY SNYDER Date: 2021-12-27 12:16 Normal [facility] CT ABD/PELV W CONon 12-12-19 CT [...] by: LAURY ZEPEDA Date: 2021-12-11 07:30 Normal [facility] CREATININEon 12-09-2021 Creatinine [Mass/Vol] 0.98 mg/dL Normal 0.70-1.30 [facility] Comment on above: Performed By: #### I NSULIN #### [facility] [address] [address] [address] Carolyn King EGFR-AF ETHIOPIAN >60 Normal >=60 [facility] Comment on above: Performed By: #### I NSULIN #### [facility] [address] [address] [address] Carolyn King EGFR-NON AF ETHIOPIAN >60 Normal >=60 [facility] Comment on above: Performed By: #### I NSULIN #### [facility] [address] [place] [address] Dr. Carolyn King BN SPINE, LUMBOSACRAL; 2 OR 3 VIEWSon 11-08-2021 BN SPINE, LUMBOSACRAL; 2 OR 3 VIEWS Patient Name: JAY CARR STUDY: Lumbar spine dated 11/08/2021. INDICATION: AP/LAT M54.50: Lumbar back pain M48.062: Lumbar stenosis with neurogenic claudication COMPARISON: None. ACCESSION NUMBER(S): [id number] ORDERING CLINICIAN: KENTON LAWSON TECHNIQUE: AP and [...] above. Electronically signed by: BATSHEVA VIDAL MD [facility] Post Op (Orthopaedic Surgery [...] Work Phone: CBCon 09-29-2021 HCT Canceled Normal [facility] Comment on above: Order Comment: TEST CBC WAS CANCELLED, 09/29/2021 08:10 NO SPECIMEN RECEIVED IN LAB. Performed By: #### C BC ####[id number] [place] [address] HGB Canceled Normal [facility] Comment on above: Order Comment: TEST CBC WAS CANCELLED, 09/29/2021 08:10 NO SPECIMEN RECEIVED IN LAB. Performed By: #### C BC ####[id number] [place] [address] MCHC Canceled Normal [facility] Comment on above: Order Comment: TEST CBC WAS CANCELLED, 09/29/2021 08:10 NO SPECIMEN RECEIVED IN LAB. Performed By: #### C BC ####[id number] [place] [address] MCV Canceled Normal [facility] Comment on above: Order Comment: TEST CBC WAS CANCELLED, 09/29/2021 08:10 NO SPECIMEN RECEIVED IN LAB. Performed By: #### C BC ####[id number] [place] [address] NUCLEATED RBC Canceled Normal [facility] Comment on above: Order Comment: TEST CBC WAS CANCELLED, 09/29/2021 08:10 NO SPECIMEN RECEIVED IN LAB. Performed By: #### C BC ####[id number] [place] [address] PLT Canceled Normal [facility] Comment on above: Order Comment: TEST CBC WAS CANCELLED, 09/29/2021 08:10 NO SPECIMEN RECEIVED IN LAB. Performed By: #### C BC ####[id number] [place] [address] RBC Canceled Normal [facility] Comment on above: Order Comment: TEST CBC WAS CANCELLED, 09/29/2021 08:10 NO SPECIMEN RECEIVED IN LAB. Performed By: #### C BC ####[id number] [place] [address] RDW-CV Canceled Normal [facility] Comment on above: Order Comment: TEST CBC WAS CANCELLED, 09/29/2021 08:10 NO SPECIMEN RECEIVED IN LAB. Performed By: #### C BC ####[id number] [place] [address] WBC Canceled Normal [facility] Comment on above: Order Comment: TEST CBC WAS CANCELLED, 09/29/2021 08:10 NO SPECIMEN RECEIVED IN LAB. Performed By: #### C BC ####[id number] [place] [address] BASIC METABOLIC PANELon ANION GAP Canceled Normal [facility] Comment on above: Order Comment: TEST BASIC METABOLIC PANEL WAS CANCELLED, 09/28/2021 04:56 Performed By: #### B MP ####[id number] [place] [address] BICARBONATE Canceled Normal [facility] Comment on above: Order Comment: TEST BASIC METABOLIC PANEL WAS CANCELLED, 09/28/2021 04:56 Performed By: #### B MP ####[id number] [place] [address] CALCIUM Canceled Normal [facility] Comment on above: Order Comment: TEST BASIC METABOLIC PANEL WAS CANCELLED, 09/28/2021 04:56 Performed By: #### B MP ####[id number] [place] [address] CHLORIDE Canceled Normal [facility] Comment on above: Order Comment: TEST BASIC METABOLIC PANEL WAS CANCELLED, 09/28/2021 04:56 Performed By: #### B MP ####[id number] [place] [address] CREATININE Canceled Normal [facility] Comment on above: Order Comment: TEST BASIC METABOLIC PANEL WAS CANCELLED, 09/28/2021 04:56 Performed By: #### B MP ####[id number] [place] [address] eGFR FEMALE Canceled Normal [facility] Comment on above: Order Comment: TEST BASIC METABOLIC PANEL WAS CANCELLED, 09/28/2021 04:56 Result Comment: CALC ULATIONS OF ESTIMATED GFR ARE PERFORMED USING THE 2020 CKD-EPI STUDY REFIT EQUATION WITHOUT THE RACE VARIABLE FOR THE IDMS-TRACEABLE CREATININE METHODS. https://jasn.asnjournals.org/content/early/ASN.60037 47662 Performed By: #### B MP ####[id number] [place] [address] eGFR MALE Canceled Normal [facility] Comment on above: Order Comment: TEST BASIC METABOLIC PANEL WAS CANCELLED, 09/28/2021 04:56 Result Comment: CALC ULATIONS OF ESTIMATED GFR ARE PERFORMED USING THE 2020 CKD-EPI STUDY REFIT EQUATION WITHOUT THE RACE VARIABLE FOR THE IDMS-TRACEABLE CREATININE METHODS. https://jasn.asnjournals.org/content/early/ASN.09016 64312 Performed By: #### B MP ####[id number] [place] [address] GLUCOSE Canceled Normal [facility] Comment on above: Order Comment: TEST BASIC METABOLIC PANEL WAS CANCELLED, 09/28/2021 04:56 Performed By: #### B MP ####[id number] [place] [address] POTASSIUM Canceled Normal [facility] Comment on above: Order Comment: TEST BASIC METABOLIC PANEL WAS CANCELLED, 09/28/2021 04:56 Performed By: #### B MP ####[id number] [place] [address] SODIUM Canceled Normal [facility] Comment on above: Order Comment: TEST BASIC METABOLIC PANEL WAS CANCELLED, 09/28/2021 04:56 Performed By: #### B MP ####[id number] [place] [address] UREA NITROGEN Canceled Normal [facility] Comment on above: Order Comment: TEST BASIC METABOLIC PANEL WAS CANCELLED, 09/28/2021 04:56 Performed By: #### B MP ####[id number] [place] [address] BASIC METABOLIC PANELon Anion gap [Moles/Vol] 16 mmol/L Normal 10 - 20 [facility] Comment on above: Performed By: #### B MP #### [facility] [id number] [place] [address] Calcium [Mass/Vol] 9.0 mg/dL Normal 8.6 - 10.6 [facility] Comment on above: Performed By: #### B MP #### [facility] [id number] [place] [address] Chloride [Moles/Vol] 103 mmol/L Normal 98 - 107 [facility] Comment on above: Performed By: #### B MP #### [facility] [id number] [place] [address] Creatinine [Mass/Vol] 0.83 mg/dL Normal 0.50 - 1.30 [facility] Comment on above: Performed By: #### B MP #### [facility] [address] [place] [address] eGFR MALE >90 Normal >90 [facility] Comment on above: Result Comment: CALC ULATIONS OF ESTIMATED GFR ARE PERFORMED USING THE 2020 CKD-EPI STUDY REFIT EQUATION WITHOUT THE RACE VARIABLE FOR THE IDMS-TRACEABLE CREATININE METHODS. https://jasn.asnjournals.org/content//ASN.15868 48121 Performed By: #### B MP #### [facility] [address] [place] [address] Glucose [Mass/Vol] 141 mg/dL High 74 - 99 [facility] Comment on above: Performed By: #### B MP #### [facility] [address] [place] [address] HCO3 (Bld) [Moles/Vol] 24 mmol/L Normal 21 - 32 [facility] Comment on above: Performed By: #### B MP #### [facility] [address] [place] [address] Potassium [Moles/Vol] 4.4 mmol/L Normal 3.5 - 5.3 [facility] Comment on above: Performed By: #### B MP #### [facility] [address] [place] [address] Sodium [Moles/Vol] 139 mmol/L Normal 136 - 145 [facility] Comment on above: Performed By: #### B MP #### [facility] [address] [place] [address] Urea nitrogen [Mass/Vol] 13 mg/dL Normal 6 - 23 [facility] Comment on above: Performed By: #### B MP #### [facility] [address] [place] [address] CBCon 09-27-2021 HCT Canceled Normal [facility] Comment on above: Order Comment: TEST URINALYSIS WAS CANCELLED, 09/19/2021 12:02 DUPLICATE ORDER. Performed By: #### U A #### [facility] [address] [place] [address] HGB Canceled Normal [facility] Comment on above: Order Comment: TEST URINALYSIS WAS CANCELLED, 09/19/2021 12:02 DUPLICATE ORDER. Performed By: #### U A #### [facility] [address] [place] [address] MCHC Canceled Normal [facility] Comment on above: Order Comment: TEST URINALYSIS WAS CANCELLED, 09/19/2021 12:02 DUPLICATE ORDER. Performed By: #### U A #### [facility] [address] [place] [address] MCV Canceled Normal [facility] Comment on above: Order Comment: TEST URINALYSIS WAS CANCELLED, 09/19/2021 12:02 DUPLICATE ORDER. Performed By: #### U A #### [facility] [address] [place] [address] NUCLEATED RBC Canceled Normal [facility] Comment on above: Order Comment: TEST URINALYSIS WAS CANCELLED, 09/19/2021 12:02 DUPLICATE ORDER. Performed By: #### U A #### [facility] [address] [place] [address] PLT Canceled Normal [facility] Comment on above: Order Comment: TEST URINALYSIS WAS CANCELLED, 09/19/2021 12:02 DUPLICATE ORDER. Performed By: #### U A #### [facility] [address] [place] [address] RBC Canceled Normal [facility] Comment on above: Order Comment: TEST URINALYSIS WAS CANCELLED, 09/19/2021 12:02 DUPLICATE ORDER. Performed By: #### U A #### [facility] [address] [place] [address] RDW-CV Canceled Normal [facility] Comment on above: Order Comment: TEST URINALYSIS WAS CANCELLED, 09/19/2021 12:02 DUPLICATE ORDER. Performed By: #### U A #### [facility] [address] [place] [address] WBC Canceled Normal [facility] Comment on above: Order Comment: TEST URINALYSIS WAS CANCELLED, 09/19/2021 12:02 DUPLICATE ORDER. Performed By: #### U A #### [facility] [address] [place] [address] Erythrocyte distribution width (RBC) [Ratio] 13.1 % Normal 11.5 - 14.5 [facility] Comment on above: Performed By: #### U A #### [facility] [address] [place] [address] Hematocrit (Bld) [Volume fraction] 41.3 % Normal 41.0 - 52.0 [facility] Comment on above: Performed By: #### U A #### [facility] [address] [place] [address] Hemoglobin (Bld) [Mass/Vol] 14.1 g/dL Normal 13.5 - 17.5 [facility] Comment on above: Performed By: #### U A #### [facility] [address] [place] [address] MCHC (RBC) [Mass/Vol] 34.1 g/dL Normal 32.0 - 36.0 [facility] Comment on above: Performed By: #### U A #### [facility] [address] [place] [address] MCV (RBC) [Entitic vol] 93 fL Normal 80 - 100 [facility] Comment on above: Performed By: #### U A #### [facility] [address] [place] [address] NUCLEATED RBC 0.0 /100 WBC Normal 0.0-0.0 [facility] Comment on above: Performed By: #### U A #### [facility] [address] [place] [address] Platelets (Bld) [#/Vol] 217 10*3/uL Normal 150 - 450 [facility] Comment on above: Performed By: #### U A #### [facility] [address] [place] [address] RBC 4.42 x10E12/L Low 4.50 - 5.90 [facility] Comment on above: Performed By: #### U A #### [facility] [address] [place] [address] WBC (Bld) [#/Vol] 13.6 10*3/uL High 4.4 - 11.3 [facility] Comment on above: Performed By: #### U A #### [facility] [address] [place] [address] Daily Progress Note-Orthopaboom morales 09-27-2021 Daily Progress Note-Orthopaedics Service: Orthopaedics Subjective Data: BRUNO JAY Trena is a 61 year old Male who is Hospital Day # 2 and POD #1 for 1. XLIF L3/4, 4/5;2. Navigated percutaneous PSIF L3-5. Patient resting comfortably in bed. Pain well controlled. Denies CP, SOB, F/C, N/V. No new N/T. Objective Data: Objective Information: T PRBPMAPSpO2 [id number]/7598% Date/Time09/27 5: 5: 5: 5: 5:39 Range(36.5C [...] Recent Arterial Blood Gas Results 09/26/2021 12:37 [id number] pH7.37 qEI521 XQ3798 Base Excess0.8null Assessment and Plan: Code Status: Code StatusFull Code Assessment: 61 y/o male s/p L3/4-4/5 XLIF, L3-5 perc PSIF on 09/26/[address] Richardson, doing well. Plan: - WB status: WBAT, no excessive bending/twisting - DVT ppx: SCDs + Teds at all times while in bed, ambulation - Diet: Clear liquid diet, ADAT to regular - SPOILAGE WORKER => PO pain medication per pain protocol [...] Timothy Steinberg M.D. Orthopaedic Surgery, PGY-2 Pager: [phone] Orthopaedic Spine Team Brannon Steinberg, PGY-2 [phone] - 1st call Orquidea Akbar, PGY-4 [phone] - 2nd call Available via [employer] After 5pm-7am, weekends, holidays please page [phone] for communications tower technician resident for urgent questions/concerns. Attestation: Note Completion: [...] the note. I personally evaluated the patient [id number] Electronic Signatures: Sal Richardson) (Signed 29-Sep-2021 11:37) Authored: Note Completion Co-Signer: Service, Subjective Data, Objective Data, Assessment and Plan, Note Completion Timothy Steinberg (Resident)) (Signed 27-Sep-2021 06:49) Authored: Service, Subjective Data, Objective Data, Assessment and Plan, Note Completion Last Updated: 29-Sep-2021 11:37 by Sal Richardson) Normal [facility] Order Reconciliationon 09-27 Order Reconciliation Page 1 Discharge Reconciliation Document Reconciliation Type: Discharge requested on behalf of Timothy Steinberg (Resident) done by Timothy Steinberg (Resident)) Discharge - Reconciliation: 27-Sep-2021 13:39 by: Timothy Steinberg (Resident)) Discharge - Reset to Incomplete: 27-Sep-2021 13:40 by: Timothy Steinberg ( (Resident)) Discharge - Reconciliation: 27-Sep-2021 13:42 by: Timothy Steinberg ( (Resident)) Home Medications EnteredHOME MEDICATIONS AT [...] unarousable, and respiratory rate lessClinician Notes: HOLD SPOILAGE WORKER Infusion and notify H.O. immediately 26-Sep-2021 15:16 [...] at Discharge: (more content not included)... Normal [facility] PT Evaluation a0-rw-myvnwfmz t - co-tx c/ OT for maximized saon 09-27-2021 PT Evaluation r2-pu-qajpuhgfx - co-tx c/ OT for maximized sa Rehab: Info: Mode of Treatmentco-treatment; physical therapy; co-tx c/ OT for maximized safety and mobility Time IN10:00 Time OUT10:27 Total Treatment [id number] Patient in ... at end of sessionchair; alarm on Communicated with ... at end of sessionbedside nurse Patient Effortexcellent Symptoms Noted During/After Treatmentnone Patient Profile Reviewedyes Onset of Illness/Injury or Date of [id number]-0263 Reason for ReferralXLIF L3/4, 4/5;2. Navigated percutaneous [...] Mobility/Tone: Bed Mobility Assessment/Interventions supine to sit Vblusl-yj-Ahw [place] (Bed Mobility)standby assist; 1 person assist Assistive Device (Bed Mobility)bed rails Comment, Bed MobilityPt. educated on log roll Transfer Assessment/Interventions sit to stand transfer; stand to sit transfer; bed to chair transfer Bed-Chair [place] (Transfers)1 person assist; standby assist; verbal cues Sit-Stand [place] (Transfers)standby assist; 1 person assist Sit-Stand Assistive Device (Transfers)no AD Stand-Sit [place] (Transfers)standby assist; 1 person assist Stand-Sit Assistive [...] Motor: Sitting, Static (Balance)SBA Sitting, Dynamic (Balance)SBA Wfd-tb-Cyrgy (Balance)SBA Standing, Static (Balance)SBA Standing, Dynamic (Balance)SBA [...] goals Thera (more content not included)... Normal [facility] ARTERIAL FULL PANELon 2021 Anion gap [Moles/Vol] 11 mmol/L Normal 10 - 25 [facility] Comment on above: Performed By: #### A FPA4 #### [facility] [address] [place] [address] BASE EXCESS-BLOOD 0.8 mmol/L Normal -2.0 - 3.0 [facility] Comment on above: Performed By: #### A FPA4 #### [facility] [address] [place] [address] BICARB, CALCULATED 26.6 mmol/L High 22.0 - 26.0 [facility] Comment on above: Performed By: #### A FPA4 #### [facility] [address] [place] [address] CALCIUM,IONIZED 1.15 mmol/L Normal 1.10 - 1.33 [facility] Comment on above: Performed By: #### A FPA4 #### [facility] [address] [place] [address] Chloride [Moles/Vol] 102 mmol/L Normal 98 - 107 [facility] Comment on above: Performed By: #### A FPA4 #### [facility] [address] [place] [address] Glucose [Mass/Vol] 114 mg/dL High 74 - 99 [facility] Comment on above: Performed By: #### A FPA4 #### [facility] [address] [place] [address] Hematocrit (Bld) [Volume fraction] 42.0 % Normal 41.0 - 52.0 [facility] Comment on above: Performed By: #### A FPA4 #### [facility] [address] [place] [address] Hemoglobin (Bld) [Mass/Vol] 14.1 g/dL Normal 13.5 - 17.5 [facility] Comment on above: Performed By: #### A FPA4 #### [facility] [address] [place] [address] Lactate [Moles/Vol] 1.3 mmol/L Normal 0.4 - 2.0 [facility] Comment on above: Performed By: #### A FPA4 #### [facility] [address] [place] [address] OXY HGB 97.5 % Normal 94.0 - 98.0 [facility] Comment on above: Performed By: #### A FPA4 #### [facility] [address] [place] [address] Oxygen (Bld) [Partial pressure] 160 mm[Hg] High 85 - 95 [facility] Comment on above: Performed By: #### A FPA4 #### [facility] [address] [place] [address] PATIENT TEMPERATURE 37.0 degrees C Normal [facility] Comment on above: Result Comment: NOTE : PATIENT RESULTS ARE NOT CORRECTED FOR TEMPERATURE. Performed By: #### A FPA4 #### [facility] [address] [place] [address] PCO2 46 mmHg High 38 - 42 [facility] Comment on above: Performed By: #### A FPA4 #### [facility] [address] [place] [address] pH (Bld) 7.37 [pH] Low 7.38 - 7.42 [facility] Comment on above: Performed By: #### A FPA4 #### [facility] [address] [place] [address] Potassium [Moles/Vol] 4.8 mmol/L Normal 3.5 - 5.3 [facility] Comment on above: Performed By: #### A FPA4 #### [facility] [address] [place] [address] SO2 100 % Normal 94 - 100 [facility] Comment on above: Performed By: #### A FPA4 #### [facility] [address] [place] [address] Sodium [Moles/Vol] 135 mmol/L Low 136 - 145 [facility] Comment on above: Performed By: #### A FPA4 #### [facility] [address] [place] [address] Admission Risk Screen - Adul ton 09-26-2021 [...] AlertFor Ebola-like Symptoms: Isolate Patient and Notify Provider/Quality Assurance Advisor For Contact: Notify Provider/Quality Assurance Advisor Advance Directive: Advance Directive/DNRno Advance Directive Information [...] Communicatenone Learning Preferencesaudio Cultural Considerationsnone Developmental Considerationsnone Latter-Day Considerationsnone Learning Assessment (Other Learner): Other learner availableno Depression Screen: During the past month, have you often been bothered by feeling down, depressed or hopelessno During the past month, have you often had little interest or pleasure in doing thingsno Have you had any thoughts of harming anyone elseno [place] Suicide: Risk Screen Not Applicable/Able to Answerable to be screened In the Past Month: Have you wished you were or could go to sleep and not wake upno(1) In the Past Month: Have you had any actual thoughts of killing yourself no(1) Lifetime: Have you ever done, started to do, or prepared to do anything to end your lifeno(1) [place] Suicide Risknegative Adult Nutrition Screen: Have you [...] Spiritual Screen: Are there any cultural, spiritual, advent practices/values/needs that are important for us to knowno CAGE: Is this an injured patient at a Trauma Center ([facility]/[place] /[facility]/[place]): no Vaccinations: Vaccination - Influenza Vaccination Screen: Is it flu season (between and September 21)Yes Screening for identified contraindications to influenza vaccinationpatient already received vaccine this season Vaccination - Pneumonia Vaccination Screen: Patient has received a previous pneumonia vaccine:no/unknown... Immunocompetent persons with underlying chronic conditions or r (more content not included)... Normal [facility] Daily Progress Note-Orthopae andrew 09-26-2021 Daily Progress Note-Orthopaedics Service: Orthopaedics Subjective Data: JAY CARR is a 61 year old Male who is Hospital Day # 1 and POD #0 for 1. XLIF L3/4, 4/5;2. Navigated percutaneous PSIF L3-5. Seen in PACU. Pain well controlled. Denies new N/T. Objective Data: Objective Information: Pain reported at 5 7:05: 0 = None Physical Exam by [...] Recent Arterial Blood Gas Results 09/26/2021 12:37 [id number] pH7.37 cZW650 BM1424 Base Excess0.8null Assessment and Plan: Code Status: Code StatusFull Code Assessment: 61 y/o male s/p L3/4-4/5 XLIF, L3-5 perc PSIF on 09/26/[address] Richardson, doing well. Plan: - WB status: WBAT, no excessive bending/twisting - DVT ppx: SCDs + Teds at all times while in bed, ambulation - Diet: Clear liquid diet, ADAT to regular - SPOILAGE WORKER => PO pain medication per pain protocol - 24 hr perioperative abx: clinda x 4 doses - FEN: Continue NS at 100cc/hr; HLIV with good PO intake - Bowel Regimen: Colace, Dulcolax, Senna - PT/OT consult - Continue home medications - Discontinue goodrich catheter POD #1 - Decadron 4mg q6hr x4 doses Dispo: to VERONICA Steinberg M.D. Orthopaedic Surgery, PGY-2 Pager: [phone] Orthopaedic Spine Team Brannon Steinberg, PGY-2 [phone] - 1st call Orquidea Akbar PGY-4 [phone] - 2nd call Available via [employer] After 5pm-7am, weekends, holidays please page [phone] for communications tower technician resident for urgent questions/concerns. Attestation: Note Completion: [...] the note. I personally evaluated the patient [id number] Electronic Signatures: Sal Richardson) (Signed 29-Sep-2021 11:38) Authored: Note Completion Co-Signer: Service, Subjective Data, Objective Data, Assessment and Plan, Note Completion Timothy Steinberg (Resident)) (Signed 26-Sep-2021 15:36) Authored: Service, Subjective Data, Objective Data, Assessment and Plan, Note Completion Last Updated: 29-Sep-2021 11:38 by Sal Richardson) [facility] Discharge Planning Ofdg5um 0 09-26-2021 Discharge Planning Note2 Discharge Planning: Planned Dispositionhome Anticipated Discharge [id number] Discharge Planning 09/27/21 1335 Transitional Care Coordination Progress Note: TCC verified demo is correct. lives at home with . pcp audrey armstrong. received covid vaccine x2 and booster x1. feels safe to return home today Patient discussed during interdisciplinary rounds. Team members present: MD/SUPPLY CHAIN PLANNER, TCC, Plan per Medical/Surgical team: patient goodrich out. dispatcher service or work changed to oral with pain control. MR for dc after working with PT OT today Status: inpatient Payor source: commercial Discharge disposition: home no needs per PT OT eval Potential Barriers: ADOD: today Calli Jones RN [facility] 09/27/21 Patient discharged home with . Heather Foster RN Assessment: Discharge Planning Assessment [id number] Discharge Planning Assessment Completed bycalli jones RN [facility] Primary Contact Name and Numberdawson gus- [phone] Prior Level of FunctioningNA Lives Withspouse(1) Living Arrangementshouse(1) Stated Reason for Admissionback and hip pain(1) Arrived [place] (1) PCPAudrey Armstrong [facility] Recent Falls/ Injury/ Need Assist with AmbulationNA DME Supplier Name/NumberNA Home Care Agency/Support ServicesNA Diabetic/Supplies NeededNA Hemodialysis ScheduleNA Resource/Environmental Concernsnone(1) Anticipated [facility](1) Services Anticipated at Transitionnon(1) Readmission Within the Last 30 Daysno previous admission in last 30 days PCP Last Date Seende 2020 [employer] Home Who/HowWife takes to appts and will be ride home today Medication Adherence/Afford/Obtainy es O2 LPMNA Nursing Checklist: Lines/Cathetersremoved/a ppropriate for next level of care Discharge Med Rec Reconciled with Loree Patient has Prescriptionsyes Transportation for Discharge Confirmedyes Follow up Reviewedyes Discharge Instructions Reviewed WithPatient Discharge Instructions Outcomeverbalize recall/understanding Discharge Instructions Review Completed with Patient/Family (diet, activity, pt instructions)yes Discharge Documentation: Discharge/Transfer Date/Hrlz87-Hkf-8884 17:00 Discharged Accompanied Byspouse Discharge Modewheelchair Transportation Methodprivate car Code StatusCode Status order at time of discharge: Full Code [place] DNR Form Sent with Patient and/or Familyn/a Valuables/Medications/Be longings Returnedyes [facility] Electronic Signatures: HEDY SHEPPARD (RN) (Signed 26-Sep-2021 21:59) Authored: Discharge Planning, Assessment, Discharge Documentation Heather Foster (RN) (Signed 27-Sep-2021 17:12) Authored: Discharge Planning, Nursing Checklist, Discharge Documentation Calli Jones (RN) (Signed 27-Sep-2021 13:35) Authored: Discharge Planning, Assessment Last Updated: 27-Sep-2021 17:12 by Heather Foster (RN) References: 1. Data Referenced From Patient Profile - Adult v2 26-Sep-2021 21:07 Normal [facility] Discharge [id number] 022 Discharge Profile2 Discharge Orders: Anticipated Discharge Date: Anticipated Discharge [id number]-Ivl-7692 Problem List: Additional Dx: Lumbar radicular pain: [...] HAVE ANTONIO REMOVED IN 3 WKS. AT [facility] [address] ON 10/18/2021 AT 0930 WITH [facility]. REHAB FACILITIES OR HOME CARE MAY REMOVE ANTONIO OR SUTURES. Wound Care 2: Wound SiteBACK (Lumbar Spine) Wound Typesurgical incision Change Dressingdaily Cleanse Withsoap and water Cover Withabdominal dressing Tape Withpaper tape Instructionsno lotions, creams, or tub soaks Other InstructionsPLEASE HAVE ANTONIO REMOVED IN 3 WKS. AT [facility] [address] [facility] 5TH FLOOR ON 10/18/2021 AT 0930 WITH [...] floor. Patient was initially started on dilaudid SPOILAGE WORKER x24 hours and then transitioned to an [...] at 27-Sep-2021 13:45:17 Appointments: Follow-Up Appointment 01: Physician/Dept/Kyree Richardson/ Orthopaedic Surgery/ Spine Reason for ReferralPostoperative Follow-Up Appointment Call to Schedule in6 weeks, PLEASE CALL [phone] TO SCHEDULE YOUR AMBER (more content not included)... Normal [facility] PREOPERATIVE DIAGNOSIS: Spinal stenosis and spondylolisthesis L3-4 and L4-5 in a patient with unrelenting claudication and radiculopathy. POSTOPERATIVE DIAGNOSIS: Spinal stenosis and spondylolisthesis L3-4 and L4-5 in a patient with unrelenting claudication and radiculopathy. OPERATION/PROCEDURE: Anterior lumbar interbody fusion by extreme lateral approach at L3-4 and L4-5 with use of interbody cage device x2. SURGEON: Sal Richardson MD. TITLE CURATIVE SPECIALIST(S): assistant accounting manager: Cb Casanova PA-C. Second ward assistant: Brannon Steinberg, second resident. ANESTHESIA: ESTIMATED [...] Deep layers were repaired using 0 Vicryl gkhsrq-yt-mbobc sutures, deep dermal layer was repaired using 2-0 Vicryl sutures, and the skin was repaired using antonio. Dry sterile dressing was ap (more content not included)... Normal [facility] Operative Reports - [facility] PREOPERATIVE DIAGNOSIS: POSTOPERATIVE DIAGNOSIS: OPERATION/PROCEDURE: Posterior spinal [...] Deep layers were repaired using 0 Vicryl lowuej-wc-cocep sutures, deep dermal layer was repaired using [...] instrumentation and fusion. SURGEON: Sal Richardson MD. TITLE CURATIVE SPECIALIST(S): ANESTHESIA: This is part 2 of a two-staged procedure. Part 1 was dictated in dictation #[id number]. Refer to dictation #[id number] for all details regarding the first part of the surgery. Sal Richardson MD EST EST DICTATION NUMBER: [id number] INTERNAL JOB NUMBER: [id number] CC: Sal Richardson MD, Electronic Signatures: Sal Richardson) (Signed on 03-Oct-2021 12:03) Authored Unsigned, Draft (SYS GENERATED) (Entered on 30-Sep-2021 07:37) Entered Last Updated: 03-Oct-2021 12:03 by Sal Richardson) [facility] Order Reconciliationon 09-26 Order Reconciliation Page 1 Admission Reconciliation Document Reconciliation Type: Admission from OR requested on behalf of Timothy Steinberg (Resident) done by Timothy Steinberg ( (Resident)) Admission from OR - Reconciliation: 26-Sep-2021 18:10 by: Timothy Steinberg (Resident)) Home MedicationsEnteredLast Dose TakenReconciled with current Order Reconciliation Comment/ Additional Information hydroxychloroquine 200 mg oral tablet 1 tab(s) oral 2 times a [id number]-Sep-2021 Hydroxychloroquine - PEDS Tablet (PLAQUENIL)DOSE = 200 mg Oral 2 Times a Dayhydroxychloroquine 200 mg oral tablet continued as the inpatient order Hydroxychloroquine - PEDS irbesartan 300 mg oral tablet 1 tab(s) oral once a [id number]-853 2 Reviewed and Held methocarbamol 500 mg oral tablet 2 tab(s) oral every 8 -Zhv-688926-Sep-2021 Reviewed and Held NIFEdipine 30 mg oral tablet, extended release 1 tab(s) oral once a day [id number] NIFEdipine (PROCARDIA XL) Extended Release Tablet, Extended ReleaseDOSE = 30 mg Oral DailyNIFEdipine 30 mg oral tablet, extended release continued as the inpatient order NIFEdipine (PROCARDIA XL) Extended Release pantoprazole 40 mg oral delayed release tablet 1 tab(s) oral once a day [id number] Pantoprazole Enteric Coated Tablet (PROTONIX)DOSE = 40 mg Oral Dailypantoprazole 40 mg oral delayed release tablet continued as the inpatient order Pantoprazole tiZANidine 4 mg oral tablet 1 oral Reviewed and Held Vitamin C 1 3 times a [id number]-132 2 Reviewed and Held Vitamin D3 1 3 times a akh53-Ucc-331446-Lvl-028 2 Reviewed and Held Zinc 140 mg [...] of 4 mg regardless of dose. HYDROmorphone SPOILAGE WORKER 25 mg/ NaCL 0.9% 50 mL (DILAUDID IV SPOILAGE WORKER)DEMAND/ SPOILAGE WORKER Dose = 0.2 mgDELAY/ Lockout Time Period [...] unarousable, and respiratory rate lessClinician Notes: HOLD SPOILAGE WORKER Infusion and notify H.O. immediately Ondansetron Injectable [...] hours: Do NOT use with Bisacodyl. Normal [facility] Patient Profile - Adult v2on 09-26-2021 Patient Profile - Adult v2 Profile: Initial Info: How to be AddressedPaul(1) Spoken Language PreferredEnglish (1) Stated Reason for Admissionback and hip pain Wants Family/Rep Notified of Admissionno Notify PCPdo not notify PCP In[facility] Patient Belongingsremains with patient Patient Belongings Remaining [...] Primary Source of Support/Comfortspouse Lives Withspouse Living Arrangementsmilliken Services Anticipated at Transitionnone Anticipated [facility] Significant IndicatorsComplete Information Review: Allergies, Home Meds [...] From 1. Vital Signs 26-Sep-2021 07:09 Normal [facility] Patient Profile - Preop v3on 09-26-2021 Patient Profile - Preop v3 Patient Profile - Preop: Initial Info: Patient DemographicsName: JAY CARR Date: 1960 Address: [address] [place] [address] Primary Phone [phone] How to be AddressedPaul Spoken Language PreferredEnglish [...] Withspouse Living Arrangementshouse Resource/Environmental Concernsnone Anticipated [facility] Services Anticipated at Transitionnone Tobacco Use: Tobacco Useno Pre-op Checklist: Arrival Cldn75-Ggw-0223 NPOyes ID Band On Patientpatient ID (name), [...] 26-Sep-2021 07:11 by Maisha Meyer (ALICE) Normal [facility] CORONAVIRUS 2019, SCREEN ASY MPTOMATICon 09-25-2021 SARS-CoV-2 (COVID-19) RNA LU+probe Ql (Unsp spec) Not detected Normal Not Detected [facility] Comment on above: Result Comment: [...] patient management decisions. Fact sheet for providers: https://www.fda.gov/media/710669/download Fact sheet for patients: https://www.fda.gov/media/392817/download This test has received FDA Emergency Use Authorization (EUA) and has been verified by [facility] ([facility]). This test is only authorized for the duration of time that circumstances exist to justify the authorization of the emergency use of in vitro diagnostic tests for the detection of SARS-CoV-2 virus and/or diagnosis of COVID-19 infection under section 564(b)(1) of the Act, 21 U.S.C. 360bbb-3(b)(1), unless the authorization is terminated or revoked sooner. [facility] is certified under CLIA-88 as qualified to perform high complexity testing. Testing is performed in the [facility] laboratories [place] [address] [place] [address]. Performed By: #### U ARFX #### [facility] [id number] [place] [address] Lab Specimen Source Nasal, Nasopharyngeal Normal [facility] Comment on above: Performed By: #### U ARFX #### [place] [address] Covid 19 Resultson 2 SARS-CoV-2 (COVID-19) RNA [...] You may also be contacted by the [facility] to see if any of [...] or Naproxen (Aleve) can also be used. Xisv-jwa-lotinaw cough and cold medicines can be used according to the instructions on the package. Some drer-ztr-qycfrbd medicines also contain acetaminophen. Make sure you [...] water are not available, use alcohol-based hand president and ceo. Avoid touching your eyes, nose, and mouth [...] 24 mary (more content not included)... Normal [facility] COAGULATION SCREENon 022 aPTT Coag (Bld) [Time] 34 s Normal 26 - 39 [facility] Comment on above: Result Comment: THE APTT IS NO LONGER USED FOR MONITORING UNFRACTIONATED HEPARIN THERAPY. FOR MONITORING HEPARIN THERAPY, USE THE HEPARIN ASSAY. Performed By: #### U ARFX #### [facility] [address] [place] [address] PT Coag (PPP) [Time] 11.1 s Normal 9.8 - 13.4 [facility] Comment on above: Performed By: #### U ARFX #### [facility] [address] [place] [address] PT, INR 1.0 Normal 0.9 - 1.1 [facility] Comment on above: Performed By: #### U ARFX #### [facility] [address] [place] [address] Laboratory - Blood bankon ABO group Nom [...] 09-20-19 STAPH/MRSA SCREEN PATIENT: JAY CARR LOCATION: [facility]#: [id number] : 62 AGE: SEX: M ORDERED BY: SAL RICHARDSON SOURCE: ANTERIOR NARES COLLECTED: 09/19/21 10:10 ANTIBIOTICS AT BRAEDEN.: RECEIVED : 09/19/21 12:47 SITE: Nasal R E S U L T S STAPH/MRSA SCREEN FINAL 09/20/21 13:57 NO Staphylococcus aureus ISOLATED. Normal [facility] Comment on above: Performed By: #### S TAPH #### [facility] [address] [place] [address] TYPE + SCREENon 09-19-2021 ABO TYPE O Normal [facility] Comment on above: Performed By: #### T +S #### [facility] [address] [place] [id number] RH TYPE Negative Normal [facility] Comment on above: Performed By: #### T +S #### [facility] [address] [place] [id number] URINALYSISon 09-19-2021 Appearance (U) Canceled Normal [facility] Comment on above: Order Comment: TEST URINALYSIS WAS CANCELLED, 09/19/2021 12:02 DUPLICATE ORDER. Performed By: #### U A #### [facility] [address] [place] [address] ASCORBIC ACID Canceled Normal [facility] Comment on above: Order Comment: TEST URINALYSIS WAS CANCELLED, 09/19/2021 12:02 DUPLICATE ORDER. Result Comment: Conc entrations > = 20 mg/dL of ascorbic acid can be expected to cause strong interference in the reactions testing for glucose, nitrite and blood. It is recommended to discontinue Vitamin C administration and retest in 10 hours. Performed By: #### U A #### [facility] [address] [place] [address] Bilirubin Ql (U) Canceled Normal [facility] Comment on above: Order Comment: TEST URINALYSIS WAS CANCELLED, 09/19/2021 12:02 DUPLICATE ORDER. Performed By: #### U A #### [facility] [address] [place] [address] Color (U) Canceled Normal [facility] Comment on above: Order Comment: TEST URINALYSIS WAS CANCELLED, 09/19/2021 12:02 DUPLICATE ORDER. Performed By: #### U A #### [facility] [address] [place] [address] Glucose Ql (U) Canceled Normal [facility] Comment on above: Order Comment: TEST URINALYSIS WAS CANCELLED, 09/19/2021 12:02 DUPLICATE ORDER. Performed By: #### U A #### [facility] [address] [place] [address] Hemoglobin Ql (U) Canceled Normal [facility] Comment on above: Order Comment: TEST URINALYSIS WAS CANCELLED, 09/19/2021 12:02 DUPLICATE ORDER. Performed By: #### U A #### [facility] [address] [place] [address] Ketones Ql (U) Canceled Normal [facility] Comment on above: Order Comment: TEST URINALYSIS WAS CANCELLED, 09/19/2021 12:02 DUPLICATE ORDER. Performed By: #### U A #### [facility] [address] [place] [address] Leukocyte esterase Test strip Ql (U) Canceled Normal [facility] Comment on above: Order Comment: TEST URINALYSIS WAS CANCELLED, 09/19/2021 12:02 DUPLICATE ORDER. Performed By: #### U A #### [facility] [address] [place] [address] Nitrite Ql (U) Canceled Normal [facility] Comment on above: Order Comment: TEST URINALYSIS WAS CANCELLED, 09/19/2021 12:02 DUPLICATE ORDER. Performed By: #### U A #### [facility] [address] [place] [address] pH Canceled Normal [facility] Comment on above: Order Comment: TEST URINALYSIS WAS CANCELLED, 09/19/2021 12:02 DUPLICATE ORDER. Performed By: #### U A #### [facility] [address] [place] [address] Protein Ql (U) Canceled Normal [facility] Comment on above: Order Comment: TEST URINALYSIS WAS CANCELLED, 09/19/2021 12:02 DUPLICATE ORDER. Performed By: #### U A #### [facility] [address] [place] [address] Specific gravity (U) [Rel density] Canceled Normal [facility] Comment on above: Order Comment: TEST URINALYSIS WAS CANCELLED, 09/19/2021 12:02 DUPLICATE ORDER. Performed By: #### U A #### [facility] [address] [place] [address] UROBILINOGEN Canceled Normal [facility] Comment on above: Order Comment: TEST URINALYSIS WAS CANCELLED, 09/19/2021 12:02 DUPLICATE ORDER. Performed By: #### U A #### [facility] [address] [place] [address] URINALYSIS WITH CULTURE IF I NDICATEDon 09-19-2021 Appearance (U) CLEAR Normal CLEAR [facility] Comment on above: Performed By: #### U ARFX #### [facility] [address] [place] [address] Bilirubin Ql (U) Negative Normal NEGATIVE [facility] Comment on above: Performed By: #### U ARFX #### [facility] [address] [place] [address] Color (U) YELLOW Normal STRAW,YELL OW [facility] Comment on above: Performed By: #### U ARFX #### [facility] [address] [place] [address] Glucose Ql (U) Negative Normal NEGATIVE [facility] Comment on above: Performed By: #### U ARFX #### [facility] [address] [place] [address] Hemoglobin Ql (U) Negative Normal NEGATIVE [facility] Comment on above: Performed By: #### U ARFX #### [facility] [address] [place] [address] Ketones Ql (U) Negative Normal NEGATIVE [facility] Comment on above: Performed By: #### U ARFX #### [facility] [address] [place] [address] Leukocyte esterase Test strip Ql (U) Negative Normal NEGATIVE [facility] Comment on above: Performed By: #### U ARFX #### [facility] [address] [place] [address] Nitrite Ql (U) Negative Normal NEGATIVE [facility] Comment on above: Performed By: #### U ARFX #### [facility] [address] [place] [address] pH (U) 6.0 [pH] Normal 5.0 - 8.0 [facility] Comment on above: Performed By: #### U ARFX #### [facility] [address] [place] [address] Protein Ql (U) Negative Normal NEGATIVE [facility] Comment on above: Performed By: #### U ARFX #### [facility] [address] [place] [address] Specific gravity (U) [Rel density] 1.016 Normal 1.005 - 1.035 [facility] Comment on above: Performed By: #### U ARFX #### [facility] [address] [place] [address] Urobilinogen (U) [Mass/Vol] mg/dL Normal 0.0 - 1.9 [facility] Comment on above: Performed By: #### U ARFX #### [facility] [address] [place] [address] Color (U) YELLOW See Below [facility]esthesiol [facility]gy-Ctr [...] may no (more content not included)... Normal [facility] Office Visiton 08-03-2021 Follow-up visit Diagnoses/Problems Lumbar [...] Hold For - Scheduling,Retrospective Authorization Requested for: [id number] Lumbar back pain, Lumbar stenosis with neurogenic [...] for we (more content not included)... Normal [facility] Radiologyon 08-03-2021 XR Cervical spine 3 Views Please click on the link to view the study images Normal -Orthopaedic s-[facility] Work Phone: SPINE, CERVICAL, 2 OR 3 VIEW Son 08-03-2021 SPINE, CERVICAL, 2 OR 3 VIEWS Patient Name: JAY CARR STUDY: SPINE, CERVICAL, 2 OR 3 VIEWS; 08/03/2021 10:55 am INDICATION: ap/lat 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 COMPARISON: None. ACCESSION NUMBER(S): [id number] ORDERING CLINICIAN: SAL RICHARDSON FINDINGS: C-spine, two views Anterior spinal fusion C5-C7 with intact hardware. There is normal alignment. No fracture. No degenerative changes seen. IMPRESSION: Anterior spinal fusion C5-C7 without evidence hardware failure Electronically signed by: JULIA ARAIZA MD Normal [facility] CORONAVIRUS 2018, SCREEN ASY MPTOMATICon 07-05-2021 DATE OF SYMPTOM ONSET [[id number]]? Canceled Normal [facility] Comment on above: Order Comment: TEST CORONAVIRUS 2018, SCREEN ASYMPTOMATIC WAS CANCELLED, 07/05/2021 13:31 ptdid not have test done.. Performed By: #### U ARFX #### [facility] [address] [place] [address] SARS-CoV-2 (COVID-19) RNA LU+probe Ql (Unsp spec) Canceled Normal [facility] Comment on above: Order Comment: [...] patient management decisions. Fact sheet for providers: https://www.fda.gov/media/738050/download Fact sheet for patients: https://www.fda.gov/media/405753/download This test has received FDA Emergency Use Authorization (EUA) and has been verified by [facility] ([facility]). This test is only authorized for the duration of time that circumstances exist to justify the authorization of the emergency use of in vitro diagnostic tests for the detection of SARS-CoV-2 virus and/or diagnosis of COVID-19 infection under section 564(b)(1) of the Act, 21 U.S.C. 360bbb-3(b)(1), unless the authorization is terminated or revoked sooner. [facility] is certified under CLIA-88 as qualified to perform high complexity testing. Testing is performed in the [facility] laboratories located at [address] [place] [address]. Performed By: #### U ARFX #### [place] [address] ABO/RH GROUP TESTon 06-21-20 ABO TYPE O Normal [facility] Comment on above: Performed By: #### U ARFX #### [place] [address] RH TYPE Negative Normal [facility] Comment on above: Performed By: #### U ARFX #### [place] [address] Operative Reports - [facility] [place] [address] Patient Name: PAUL. Trena CARR : 1960 Date of Service: 06/21/2021 Patient Location: [place] [address] Patient Type: O Surgeon: Sal Richardson MD [...] anterior plate instrumentation. SURGEON: Sal Richardson MD TITLE CURATIVE SPECIALIST(S): Ad Valdivia MD, chief resident. ANESTHESIA: ESTIMATED [...] current moratorium due to short staffing at [facility]. The patient agreed to have the [...] excellent posi (more content not included)... Normal [facility] Order Reconciliationon 06-21 Order Reconciliation Page 1 Discharge Reconciliation Document Reconciliation Type: Discharge requested on behalf of Ad Valdivia (Resident) done by Ad Valdivia (Resident)) Discharge - Reconciliation: 21-Jun-2021 11:57 by: Ad Valdivia ( (Resident)) Discharge - Reset to Incomplete: 21-Jun-2021 11:57 by: Ad Valdivia ( (Resident)) Discharge - Reconciliation: 21-Jun-2021 11:59 by: Ad Valdivia (Resident)) Home Medications EnteredHOME MEDICATIONS AT DISCHARGE [...] a day (more content not included)... Normal [facility] Order Reconciliation Page 1 Admission Reconciliation Document Reconciliation Type: Admission requested on behalf of Cheikh August (Resident) done by Cheikh August ( (Resident)) Admission - Reconciliation: 21-Jun-2021 06:37 by: Cheikh August ( (Resident)) Home MedicationsEnteredLast Dose TakenReconciled with current Order Reconciliation Comment/ Additional Information celecoxib 200 mg oral capsule 1 cap(s) oral 2 times a [id number] Reviewed and Held gabapentin 300 mg oral capsule 1 tab(s) oral once a [id number]-1523 Reviewed and Held hydroxychloroquine 200 mg oral tablet 1 tab(s) oral 2 times a [id number]-2461 Hydroxychloroquine Tablet (PLAQUENIL)DOSE = 200 mg Oral 2 Times a Day hydroxychloroquine 200 mg oral tablet continued as the inpatient order Hydroxychloroquine irbesartan 300 mg oral tablet 1 tab(s) oral once a [id number]-[id number]-1130 Reviewed and Held NIFEdipine 30 mg oral [...] Pantoprazole Vitamin C 1 3 times a rby01-Jes-0920 Reviewed and Held Vitamin D3 1 3 times a fsu90-Xef-6927 Reviewed and Held Zinc 140 mg (as elemental zinc 50 mg) oral tablet 1 tab(s) oral once a day 21-Jun-2021 Reviewed and Held Normal [facility] Patient Profile - Preop v3on 06-21-2021 Patient Profile - Preop v3 Patient Profile - Preop: Initial Info: Patient DemographicsName: JAY CARR Date: 1960 Address: [address] [place], [place] [address] [address] Primary Phone [phone] How to be AddressedPaul Spoken Language PreferredEnglish Source of Informationpatient Stated Reason for Admissionback surgery Primary Contact Name and NumberTreva Bruno () [phone] Limitations on Visitors/Phone Callsnone Patient Belongings2 bags in pacu, glasses and phone with pt Medications Brought to [facility]: Weight in kg98.9 kilogram(s) Weight in rar065 pound(s) Weight Methodactual (measured) Scale Typestanding Height [...] Withspouse Living Arrangementshouse Resource/Environmental Concernsnone Anticipated [facility] [employer] [facility] Anticipated at Transitionnone Tobacco Use: Tobacco Useno Pre-op Checklist: Arrival [id number] Arrival Time06:43 Procedure TypeC5-7 decompression and fusion [...] 21-Jun-2021 06:45 by Maisha Meyer (ALICE) Normal [facility] CORONAVIRUS 2019, SCREEN ASY MPTOMATICon 06-20-2021 SARS-CoV-2 (COVID-19) RNA LU+probe Ql (Unsp spec) Not detected Normal Not Detected [facility] Comment on above: Result Comment: [...] patient management decisions. Fact sheet for providers: https://www.fda.gov/media/321753/download Fact sheet for patients: https://www.fda.gov/media/001040/download This test has received FDA Emergency Use Authorization (EUA) and has been verified by [facility] ([facility]). This test is only authorized for the duration of time that circumstances exist to justify the authorization of the emergency use of in vitro diagnostic tests for the detection of SARS-CoV-2 virus and/or diagnosis of COVID-19 infection under section 564(b)(1) of the Act, 21 U.S.C. 360bbb-3(b)(1), unless the authorization is terminated or revoked sooner. [facility] is certified under CLIA-88 as qualified to perform high complexity testing. Testing is performed in the [facility] laboratories located at [id number] [place] [address]. Performed By: #### U ARFX #### [address] [place] [address] Covid 19 Resultson 1 SARS-CoV-2 (COVID-19) RNA [...] You may also be contacted by the [place] Department of Health to see if any [...] or Naproxen (Aleve) can also be used. Gxjc-bbh-wltpghk cough and cold medicines can be used according to the instructions on the package. Some yuti-rlx-yjsduas medicines also contain acetaminophen. Make sure you [...] water are not available, use alcohol-based hand president and ceo. Avoid touching your eyes, nose, and mouth [...] 24 mary (more content not included)... Normal [facility] CORONAVIRUS 2019, SCREEN ASY MPTOMATICon 06-19-2021 Lab Specimen Source Nasal, Nasopharyngeal Normal [facility] Comment on above: Performed By: #### U ARFX #### [facility] [address] [place] [address] BASIC METABOLIC PANELon 12 Anion gap [Moles/Vol] 14 mmol/L Normal 10 - 20 [facility] Comment on above: Performed By: #### B MP #### [facility] [address] [place] [address] Calcium [Mass/Vol] 9.0 mg/dL Normal 8.6 - 10.6 [facility] Comment on above: Performed By: #### B MP #### [facility] [address] [place] [address] Chloride [Moles/Vol] 105 mmol/L Normal 98 - 107 [facility] Comment on above: Performed By: #### B MP #### [facility] [address] [place] [address] Creatinine [Mass/Vol] 0.85 mg/dL Normal 0.50 - 1.30 [facility] Comment on above: Performed By: #### B MP #### [facility] [address] [place] [address] GFR- AM. >60 Normal >60 [facility] Comment on above: Result Comment: CALC ULATIONS OF ESTIMATED GFR ARE PERFORMED USING THE MDRD STUDY EQUATION FOR THE IDMS-TRACEABLE CREATININE METHODS. CLIN CHEM 2007;53:766-72 Performed By: #### B MP #### [facility] [address] [place] [address] GFR-NON AM. >60 Normal >60 [facility] Comment on above: Performed By: #### B MP #### [facility] [address] [place] [address] Glucose [Mass/Vol] 87 mg/dL Normal 74 - 99 [facility] Comment on above: Performed By: #### B MP #### [facility] [address] [place] [address] HCO3 (Bld) [Moles/Vol] 27 mmol/L Normal 21 - 32 [facility] Comment on above: Performed By: #### B MP #### [facility] [address] [place] [address] Potassium [Moles/Vol] 4.7 mmol/L Normal 3.5 - 5.3 [facility] Comment on above: Performed By: #### B MP #### [facility] [address] [place] [address] Sodium [Moles/Vol] 141 mmol/L Normal 136 - 145 [facility] Comment on above: Performed By: #### B MP #### [facility] [address] [place] [address] Urea nitrogen [Mass/Vol] 19 mg/dL Normal 6 - 23 [facility] Comment on above: Performed By: #### B MP #### [facility] [address] [place] [address] CBCon 06-02-2021 Erythrocyte distribution width (RBC) [Ratio] 12.4 % Normal 11.5 - 14.5 [facility] Comment on above: Performed By: #### U A #### [facility] [address] [place] [address] Hematocrit (Bld) [Volume fraction] 43.6 % Normal 41.0 - 52.0 [facility] Comment on above: Performed By: #### U A #### [facility] [address] [place] [address] Hemoglobin (Bld) [Mass/Vol] 14.8 g/dL Normal 13.5 - 17.5 [facility] Comment on above: Performed By: #### U A #### [facility] [address] [place] [address] MCHC (RBC) [Mass/Vol] 33.9 g/dL Normal 32.0 - 36.0 [facility] Comment on above: Performed By: #### U A #### [facility] [address] [place] [address] MCV (RBC) [Entitic vol] 93 fL Normal 80 - 100 [facility] Comment on above: Performed By: #### U A #### [facility] [address] [place] [address] NUCLEATED RBC 0.0 /100 WBC Normal 0.0-0.0 [facility] Comment on above: Performed By: #### U A #### [facility] [address] [place] [address] Platelets (Bld) [#/Vol] 295 10*3/uL Normal 150 - 450 [facility] Comment on above: Performed By: #### U A #### [facility] [address] [place] [address] RBC 4.69 x10E12/L Normal 4.50 - 5.90 [facility] Comment on above: Performed By: #### U A #### [facility] [address] [place] [address] WBC (Bld) [#/Vol] 8.5 10*3/uL Normal 4.4 - 11.3 [facility] Comment on above: Performed By: #### U A #### [facility] [address] [place] [address] COAGULATION SCREENon 021 aPTT Coag (Bld) [Time] 31 s Normal 26 - 39 [facility] Comment on above: Result Comment: Note new reference range as of 05/23/2021 at 10:00am. Performed By: #### U A #### [facility] [address] [place] [address] PT Coag (PPP) [Time] 12.2 s Normal 9.8 - 13.4 [facility] Comment on above: Result Comment: Note new reference range as of 05/23/2021 at 10:00am. Performed By: #### U A #### [facility] [address] [place] [address] PT, INR 1.1 Normal 0.9 - 1.1 [facility] Comment on above: Performed By: #### U A #### [facility] [address] [place] [address] Laboratory - Blood bankon ABO group Nom [...] Perioperative Med Work Phone: STAPH/MRSA SCREENon 06-02-20 21 STAPH/MRSA SCREEN PATIENT: JAY CARR LOCATION: [facility]#: [id number] : 62 AGE: SEX: M ORDERED BY: SAL RICHARDSON SOURCE: ANTERIOR NARES COLLECTED: 06/02/21 10:59 ANTIBIOTICS AT BRAEDEN.: RECEIVED : 06/02/21 13:35 SITE: Nasal R E S U L T S STAPH/MRSA SCREEN FINAL 06/04/21 07:50 NO Staphylococcus aureus ISOLATED. Normal [facility] Comment on above: Performed By: #### S TAPH #### [facility] [address] [place], [place] TH CHEST 2 VIEW PA AND LATon 06-02-2021 TH CHEST 2 VIEW PA AND LAT Patient Name: JAY CARR STUDY: TH CHEST 2 VIEW PA AND LAT; 06/02/2021 11:10 am INDICATION: covid follow up . COMPARISON: None. ACCESSION NUMBER(S): [id number] ORDERING CLINICIAN: SAL RICHARDSON FINDINGS: PA and [...] as stated. This study was interpreted at [place], [place]. Electronically signed by: RANJIT GONZALES MD Normal [facility] TYPE + SCREENon 06-02-2021 ABO TYPE O Normal [facility] Comment on above: Performed By: #### U A #### [facility] [address] [place], [place] RH TYPE Negative Normal [facility] Comment on above: Performed By: #### U A #### [facility] [address] [place] [address] UA MICROSCOPICon 06-02-2021 CA OXALATE CRYSTAL 3+ /HPF Abnormal [facility] Comment on above: Performed By: #### U A #### [facility] [address] [place] [address] Mucus Ql (Urine sed) 4+ /LPF Normal [facility] Comment on above: Performed By: #### U A #### [facility] [address] [place] [address] RBC 11 /HPF Abnormal 0-5 [facility] Comment on above: Performed By: #### U A #### [facility] [address] [place] [address] SQUAMOUS EPITH. CELLS 1 /HPF Normal [facility] Comment on above: Performed By: #### U A #### [facility] [address] [place] [address] WBC 1 /HPF Normal 0-5 [facility] Comment on above: Performed By: #### U A #### [facility] [address] [place] [address] URINALYSIS WITH CULTURE IF I NDICATEDon 06-02-2021 Appearance (U) HAZY Normal CLEAR [facility] Comment on above: Performed By: #### U A #### [facility] [address] [place] [address] Bilirubin Ql (U) Negative Normal NEGATIVE [facility] Comment on above: Performed By: #### U A #### [facility] [address] [place] [address] Color (U) YELLOW Normal STRAW,YELL OW [facility] Comment on above: Performed By: #### U A #### [facility] [address] [place] [address] Glucose Ql (U) Negative Normal NEGATIVE [facility] Comment on above: Performed By: #### U A #### [facility] [address] [place] [address] Hemoglobin Ql (U) Negative Normal NEGATIVE [facility] Comment on above: Performed By: #### U A #### [facility] [address] [place] [address] Ketones Ql (U) Negative Normal NEGATIVE [facility] Comment on above: Performed By: #### U A #### [facility] [address] [place] [address] Leukocyte esterase Test strip Ql (U) Negative Normal NEGATIVE [facility] Comment on above: Performed By: #### U A #### [facility] [address] [place] [address] Nitrite Ql (U) Negative Normal NEGATIVE [facility] Comment on above: Performed By: #### U A #### [facility] [address] [place] [address] pH (U) 5.0 [pH] Normal 5.0 - 8.0 [facility] Comment on above: Performed By: #### U A #### [facility] [address] [place] [address] Protein Ql (U) 100 (2+) Abnormal NEGATIVE [facility] Comment on above: Performed By: #### U A #### [facility] [address] [place] [address] Specific gravity (U) [Rel density] 1.026 Normal 1.005 - 1.035 [facility] Comment on above: Performed By: #### U A #### [place] [address] [place] [address] Urobilinogen (U) [Mass/Vol] mg/dL Normal 0.0 - 1.9 [facility] Comment on above: Performed By: #### U A #### [place] [address] [place] [address] Color (U) YELLOW See Below [facility] [...] 05-23-2021 Lab Specimen Source Nasal, Nasopharyngeal Normal [facility] Comment on above: Order Comment: TEST CORONAVIRUS 2019, SCREEN ASYMPTOMATIC WAS CANCELLED, 07/05/2021 13:31 ptdid not have test done.. Performed By: #### U ARFX #### [facility] [address] [address] Tobacco Screening.on 021 Fall risk assessment a) [...] COMPARISON: Lumbosacral spine radiographs 02/09/2021 ACCESSION NUMBER(S): [id number] ORDERING CLINICIAN: TONJA GERARDO TECHNIQUE: Sagittal and [...] degenerative disc height loss at L2-L3 with hhzm-ql-lszwlosh height loss at L1-L2. Conus: The lower [...] right, without spinal canal stenosis. There is vltd-wk-xnllcgnl right and mild left neural foraminal narrowing. [...] as stated. This study was interpreted at [place], [place]. Electronically signed by: STEVE YANG MD Normal [facility] No Panel Informationon 02-09 Normal -Orthopaedic s-[facility] [address] Work Phone: Please click on the link to view the study images Normal -Orthopaedic [facility] [address] Work Phone: SPINE, LUMBOSACRAL; MIN 4 EWSon 02-09-2021 SPINE, LUMBOSACRAL; MIN 4 VIEWS Patient Name: JAY CARR STUDY: Lumbar Spine, 4 views. INDICATION: Low back pain COMPARISON: None. ACCESSION NUMBER(S): [id number] ORDERING CLINICIAN: TONJA GERARDO FINDINGS: Grade 1 [...] Electronically signed by: JOSE GOEL MD Normal [facility] MRI L-Ext Joint w/o Contrast LTon 01-12-2021 [...] formation. No other focal left hip abnormality. [facility] thanks you for the opportunity to care for your patient. Workstation ID: [id number] FINAL REPORT Dictated By: Batsheva Brown MD 01/12/2021 08:43 Assigned Physician: Batsheva Brown MD Reviewed and Electronically Signed By: Batsheva Brown MD 01/12/2021 09:09 Transcribed by: CAROLINA 01/12/2021 08:43 Technologist: AMANDA Normal [facility] Basic metabolic 2000 panelon 11-10-2020 Calcium [Mass/Vol] 9.5 mg/dL Normal 8.5-10.6 [facility] Chloride [Moles/Vol] 104 mmol/L Normal 98-107 Moun [facility] CO2 [Moles/Vol] 28 mmol/L Normal 21-32 [facility] Creatinine [Mass/Vol] 0.85 mg/dL Normal 0.55-1.02 Lianna [facility] Glucose [Mass/Vol] 112 mg/dL High 70-99 [facility] Potassium [Moles/Vol] 4.2 mmol/L Normal 3.5-5.1 [facility] Sodium [Moles/Vol] 142 mmol/L Normal 136-145 [facility] Urea nitrogen (BldV) [Mass/Vol] 20 mg/dL High 7.0-18.0 [facility] Urea nitrogen/Creatinine [Mass ratio] 24 mg/mg Normal [facility] CBC W Auto Differential pane l (Bld)on 11-10-2020 Basophils (Bld) [#/Vol] 0.0 thou/mcL Normal 0.0-0.2 [facility] Basophils/100 WBC (Bld) 0.5 % Normal 0-3 [facility] Differential cell count method Nom (Bld) AUTOMATED DIFFERENTIAL Normal [facility] Eosinophils (Bld) [#/Vol] 0.1 thou/mcL Normal 0.0-0.4 [facility] Eosinophils/100 WBC (Bld) 0.9 % Normal 0-7 [facility] Erythrocyte distribution width (RBC) [Entitic vol] 13.0 % Normal 11.7-15.0 [facility] Hematocrit (Bld) [Volume fraction] 43.4 % Normal 34.0-50.0 [facility] Hemoglobin (Bld) [Mass/Vol] 15.0 g/dL Normal 11.5-17.0 [facility] Lymphocytes (Bld) [#/Vol] 1.0 thou/mcL Normal 0.7-4.5 [facility] Lymphocytes/100 WBC (Bld) 15.6 % Normal 14-46 [facility] MCH (RBC) [Entitic mass] 32.5 Picograms Normal 27.0-34.0 [facility] MCHC (RBC) [Mass/Vol] 34.6 g/dL Normal 32.0-36.0 Lianna [facility] MCV (RBC) [Entitic vol] 94.0 fL Normal 80-98 [facility] Monocytes (Bld) [#/Vol] 0.6 thou/mcL Normal 0.1-1.0 [facility] Monocytes/100 WBC (Bld) 9.8 % Normal 4-13 [facility] Neutrophils (Bld) [#/Vol] 4.7 thou/mcL Normal 1.5-7.8 [facility] Neutrophils/100 WBC (Bld) 73.2 % Normal 40-74 [facility] Platelet mean volume (Bld) [Entitic vol] 9.4 fL Normal 7.5-11.2 [facility] Platelets (Bld) [#/Vol] 220 thou/mcL Normal 140-415 [facility] RBC (Bld) [#/Vol] 4.62 x(10)6/mcL Normal 3.80-5.60 [facility] WBC (Bld) [#/Vol] 6.5 thou/mcL Normal 4.0-10.5 [facility] PT Coag (PPP) [Time]on 11-10 INR Coag (Bld) [Relative time] 0.9 {INR} Normal [facility] Comment on above: Result Comment: DURI NG THE INDUCTION PHASE OF ORAL ANTICOAGULATION, THE INR MAY NOT REFLECT THE ANTICOAGULANT STATUS OF THE PATIENT. THERAPEUTIC RANGES FOR INR'S ARE: MOST CLINICAL SITUATIONS: INR 2.0-3.0 MECHANICAL PROSTHETIC VALVES: INR 2.5-3.5 CRITICAL: INR 5.0 Prothrombin Timeon PT Coag (PPP) [Time] 12.6 s Normal 11.9-14.6 Moun [facility] aPTT Coag (Bld) [Time]on aPTT Coag (PPP) [Time] 38.6 s High 23.2-34.6 [facility] Vital Signs Date Time Vital Sign Value Performing Clinician Facility 04-08-2023 10:38-0400 Blood Pressure Location Gurnard [facility] [employer] [facility] 04-08-2023 10:38-0400 Diastolic blood pressure 82 mm[Hg] Gurnard [facility] [employer] [facility] 04-08-2023 10:38-0400 Heart rate 71 /min Gurnard [employer] [facility] 04-08-2023 10:38-0400 Systolic blood pressure 154 mm[Hg] [facility]urnard [employer] [facility] 10-16-2022 14:18-0400 Blood Pressure Location Gurnard [employer] [facility] 10-16-2022 14:18-0400 Diastolic blood pressure 94 mm[Hg] [employer]urnard [employer] [facility] 10-16-2022 14:18-0400 Heart rate 72 /min Shun MACHADO [facility] 10-16-2022 14:18-0400 Systolic blood pressure 186 mm[Hg] Shun MACHADO [facility] 10-02-2022 13:36-0400 Blood Pressure Location Arely NILL [facility] 10-02-2022 13:36-0400 Diastolic blood pressure 80 mm[Hg] Arely NILL [facility] 10-02-2022 13:36-0400 Heart rate 76 /min Arely NILL [facility] [place] 10-02-2022 13:36-0400 Respiratory rate 16 /min Arely NILL [facility] [place] 10-02-2022 13:36-0400 Systolic blood pressure 144 mm[Hg] Arely NILL [facility] [place] 02-15-2022 14:19-0400 Diastolic blood pressure 95 mm[Hg] MD Audrey Armstrong Work Phone: [facility] 02-15-2022 14:19-0400 Heart rate 66 /min MD Audrey Armstrong Work Phone: [facility] 02-15-2022 14:19-0400 Respiratory rate 16 /min MD Audrey Armstrong Work Phone: [facility] 02-15-2022 14:19-0400 SaO2% (BldA) [Mass fraction] 99 % MD Audrey Armstrong Work Phone: [facility] 02-15-2022 14:19-0400 Systolic blood pressure 170 mm[Hg] MD Audrey Armstrong Work Phone: [facility] 02-15-2022 13:04-0400 Inhaled oxygen flow rate 6 L/min MD Audrey Armstrong Work Phone: [facility] 02-15-2022 12:00-0400 Body weight 42 mg MD Audrey Armstrong Work Phone: [facility] 02-15-2022 10:03-0400 Body height 175.26 cm MD Audrey Armstrong Work Phone: [facility] 02-15-2022 10:03-0400 Body mass index (BMI) [Ratio] 31.3 kg/m2 MD Audrey Armstrong Work Phone: [facility] 02-15-2022 10:03-0400 Body weight 96.16 kg MD Audrey Armstrong Work Phone: [facility] 02-15-2022 07:29-0400 Body temperature 98.8 [degF] MD Audrey Armstrong Work Phone: [facility] 01-24-2022 13:59-0400 Blood Pressure Location Arely NILL [facility] [place] 01-24-2022 13:59-0400 Diastolic blood pressure 74 mm[Hg] Arely NILL [facility] 01-24-2022 13:59-0400 Heart rate 72 /min Arely NILL [facility] [place] 01-24-2022 13:59-0400 Respiratory rate 16 /min Arely NILL [facility] [place] 01-24-2022 13:59-0400 Systolic blood pressure 140 mm[Hg] Arely NILL [facility] [place] 01-19-2022 16:45-0400 Diastolic blood pressure 84 mm[Hg] MD Audrey Armstrong Work Phone: [facility] 01-19-2022 16:45-0400 Heart rate 70 /min MD Audrey Armstrong Work Phone: [facility] 01-19-2022 16:45-0400 Respiratory rate 16 /min MD Audrey Armstrong Work Phone: [facility] 01-19-2022 16:45-0400 SaO2% (BldA) [Mass fraction] 98 % MD Audrey Armstrong Work Phone: [facility] 01-19-2022 16:45-0400 Systolic blood pressure 148 mm[Hg] MD Audrey Armstrong Work Phone: [facility] 01-19-2022 15:04-0400 Body height 177.8 cm MD Audrey Armstrong Work Phone: [facility] 01-19-2022 15:04-0400 Body mass index (BMI) [Ratio] 31.2 kg/m2 MD Audrey Armstrong Work Phone: [facility] 01-19-2022 15:04-0400 Body weight 98.8 kg MD Audrey Armstrong Work Phone: [facility] 01-19-2022 14:24-0400 Body temperature 98.6 [degF] MD Audrey Armstrong Work Phone: [facility] 09-27-2021 09:44-0400 Body temperature 97.88 [degF] Audrey Armstrong Other Phone: [facility] 09-27-2021 09:44-0400 Diastolic blood pressure 74 mm[Hg] Audrey Armstrong Other Phone: [facility] 09-27-2021 09:44-0400 Heart rate 89 /min Audrey Armstrong Other Phone: [facility] 09-27-2021 09:44-0400 Respiratory rate 18 /min Audrey Armstrong Other Phone: [facility] 09-27-2021 09:44-0400 SaO2% (BldA) [Mass fraction] 94 % Audrey Armstrong Other Phone: [facility] 09-27-2021 09:44-0400 Systolic blood pressure 149 mm[Hg] Audrey Armstrong Other Phone: [facility] 03-16-2021 08:34-0400 Body weight 101.86 [...] Facility Start: 04-13-2024 ambulatory Shun MACHADO Facility :[facility] Start: 11-19-2023 End: 11-19-2023 ambulatory Sabrina Manriquez Facility:[facility] Start: 11-19-2023 End: 11-19-2023 ambulatory MD Audrey Armstrong Work Phone: [facility] Work Phone: Start: 11-19-2023 End: 11-19-2023 Patient encounter procedure MD Audrey Armstrong Work Phone: [facility] [address] Work Phone: Start: 08-28-2023 End: 08-28-2023 ambulatory STEFANIE KNIGHT Not Available Start: 08-26-2023 End: 08-26-2023 ambulatory PB MAY Not Available Start: 07-30-2023 End: 07-30-2023 ambulatory GENE KELBLEY Not Available Start: 07-25-2023 End: 07-25-2023 ambulatory STEFANIE KNIGHT Not Available Start: 07-23-2023 End: 07-23-2023 ambulatory GENE BARRY Not Available Start: 07-18-2023 End: 07-19-2023 ambulatory GENE BARRY Not Available Start: 07-18-2023 End: 07-18-2023 ambulatory MD Audrey Armstrong Work Phone: [facility] Work Phone: Start: 07-18-2023 End: 07-18-2023 Patient encounter procedure MD Audrey Armstrong Work Phone: [facility] [address] Work Phone: Start: 07-16-2023 End: 07-16-2023 ambulatory GENE BARRY Not Available Start: 07-09-2023 End: 07-09-2023 ambulatory STEFANIE KNIGHT Not Available Start: 04-08-2023 End: 04-09-2023 ambulatory Shun MACHADO Facility: [facility] Start: 04-08-2023 End: 04-08-2023 Patient encounter procedure Shun MACHADO [facility] Start: 03-12-2023 End: 03-12-2023 ambulatory ANTWAN SORIANO Facility:[facility] Start: 02-19-2023 End: 02-19-2023 ambulatory Hudson De Leon Facility:[facility] Start: 02-19-2023 End: 02-19-2023 ambulatory MD Audrey Armstrong Work Phone: [facility] Work Phone: Start: 02-19-2023 End: 02-19-2023 Patient encounter procedure MD Audrey Armstrong Work Phone: [facility] [address] Work Phone: Start: 10-16-2022 End: 10-17-2022 ambulatory Shun MACHADO Facility:[facility] Start: 10-16-2022 End: 10-16-2022 Patient encounter procedure Shun Yuki MACHADO [facility] [place] Start: 10-15-2022 End: 10-15-2022 ambulatory MD Audrey Armstrong Work Phone: [facility] Work Phone: Start: 10-15-2022 End: 10-15-2022 Patient encounter procedure MD Audrey Armstrong Work Phone: [facility] [address] Work Phone: Start: 10-02-2022 End: 10-03-2022 ambulatory Arely LOGAN Facility:[facility] Start: 10-02-2022 End: 10-02-2022 Patient encounter procedure Arely LOGAN [facility] Start: 09-11-2022 End: 09-11-[address] AUDREY ARMSTRONG . Facility:[facility] Start: 09-05-2022 ambulatory JENI Jones lity:[facility] Start: 08-31-2022 End: 09-01-[address] ARELY LOGAN . Facility:[facility] Start: 08-27-2022 Chart Update Audrey Armstrong Work Phone: [facility]eqlh[facility]qq[facility] Work Phone: Start: 08-16-2022 End: 08-17-2022 ambulatory WADE NELSON Facility:[facility] Start: 07-19-2022 End: 07-20-2022 ambulatory WADE NELSON Facility:[facility] Start: 07-06-2022 End: 07-07-[address] AUDREY ARMSTRONG . Facility:[facility] Start: 06-19-2022 Encounter for preprocedural laboratory examination JENI SAEED [facility] Start: 06-07-2022 End: 06-08-[address] AUDREY ARMSTRONG . Facility:[facility] Start: 06-04-2022 End: 06-05-[address] AUDREY ARMSTRONG . Facility:[facility] Start: 06-04-2022 End: 06-05-2022 Encounter for preprocedural laboratory examination DR AUDREY ARMSTRONG . Facility:[facility] Start: 05-31-2022 Encounter for preprocedural cardiovascular examination JENI Albrecht [facility] Start: 05-25-2022 End: 05-26-2022 ambulatory [facility] Trena [facility] Facility:[facility]1 Start: 05-25-2022 End: 05-26-2022 Encounter for preprocedural cardiovascular examination JENI Trena [facility] Facility:[facility] Start: 05-23-[address] AUDREY ARMSTRONG . Facili ty:[facility]1 Start: 05-23-2022 End: 05-23-2022 ambulatory MD Audrey Armstrong Work Phone: [facility] Work Phone: Start: 05-23-2022 End: 05-23-2022 Patient encounter procedure MD Audrey Armstrong Work Phone: [facility] [address] Start: 05-02-2022 ambulatory Mr. Kenton Lawson Fa cility:[facility] Start: 05-02-2022 Office outpatient vi sit 25 minutes Audrey Armstrong Work Phone: JV-Zlnqhpltmuph-Yalzcna 5FL DO Work Phone: Start: 03-30-2022 Encounter for genera l adult medical examination without abnormal findings DR AUDREY ARMSTRONG . [facility] Start: 03-28-2022 End: 03-29-[address] AUDREY ARMSTRONG . Facility:[facility]1 Start: 03-28-2022 End: 03-29-2022 Encounter for general adult medical examination without abnormal findings DR AUDREY ARMSTRONG . Facility:[facility]1 Start: 02-15-2022 End: 02-15-2022 Admission to same day surgery center MD Audrey Armstrong Work Phone: [facility] [place] Start: 02-14-2022 End: 02-15-2022 ambulatory JENI Albrecht [facility] Facility:H1 Start: 02-13-2022 End: 02-13-2022 Patient encounter procedure MD Audrey Armstrong Work Phone: [facility]Pre[facility]Surgical [facility] Start: 01-30-2022 End: 01-30-2022 Patient encounter procedure Shun MACHADO [facility] [place] Start: 01-29-2022 End: 01-30-[address] AUDREY ARMSTRONG . Facility:[facility]1 Start: 01-29-2022 ambulatory Audrey Armstrong Fac ility:[facility] Start: 01-29-2022 Office outpatient vi sit 15 minutes Audrey Armstrong Work Phone: XK-Bgdbyazjpuxh-Pdqsquq 5FL DO Work Phone: Start: 01-29-2022 ambulatory Mr. Kenton Lawson Fa cility:[id number] Start: 01-24-2022 End: 01-24-2022 Patient encounter procedure Arely LOGAN [facility] [place] Start: 01-19-2022 End: 01-19-2022 Admission to same day surgery center MD Audrey Armstrong Work Phone: [facility] [place] Start: 01-17-2022 End: 01-17-2022 Patient encounter procedure MD Audrey Armstrong Work Phone: [facility] Start: 01-11-2022 End: 01-12-[address] SHUN MACHADO Facility:[facility]1 Start: 01-09-2022 End: 01-09-[address] LAURY ZEPEDA Facility:[facility] Start: 01-05-2022 End: 01-06-[address] AUDREY ARMSTRONG . Facility:[facility]1 Start: 12-27-2021 End: 12-28-[address] AUDREY ARMSTRONG . Facility:[facility]1 Start: 12-09-2021 End: 12-10-[address] AUDREY ARMSTRONG . Facility:[facility]1 Start: 11-09-2021 Chart Update Audrey Armstrong Work Phone: JR-Kymejwpkrbix-Kgxjcd 210 Work Phone: Start: 11-08-2021 Postop follow up vis it related to original px Audrey Armstrong Work Phone: ZL-Oaqdrqezhytv-Ipbjmfc 5FL DO Work Phone: Start: 11-08-2021 POV, Provider: Kenton Lawson, Status: Pen, Time: 11:00 AM Audrey Armstrong Work Phone: HB-Zsmoygaipofl-Jcodot 210 Work Phone: Start: 11-08-2021 ambulatory Audrey Rivera ility:[facility] Start: 11-07-2021 AUDIT Audrey Armstrong Work Phone: DJ-Hcgsafrxtszu-Fctvfg 210 Work Phone: Start: 09-26-2021 End: 09-27-2021 Evaluation and management of inpatient Sal Richardson [facility] [id number] Start: 09-19-2021 AUDIT Audrey Armstrong Work Phone: GF-Kzypfdmgiaslrz-Pro for Perioperative Med Work Phone: Start: 09-19-2021 ambulatory Audrey Rivera ility:[facility] Start: 09-19-2021 Encounter for blood typing Dr. SAL RICHARDSON [facility] Start: 09-19-2021 Encounter for preprocedural laboratory examination Dr. SAL RICHARDSON [facility] Start: 08-23-2021 Office outpatient vi sit 40 minutes Audrey Armstrong Work Phone: NK-Ytypjtxzgxwd-Jmloeuu ng-[facility] Work Phone: Start: 08-23-2021 ambulatory Audrey Rivera ility:[facility] Start: 08-03-2021 Office outpatient vi sit 25 minutes Audrey Armstrong Work Phone: TG-Zxdnmejdrsiu-Wcxjsq 210 Work Phone: Start: 08-03-2021 ambulatory Referral Self Facility: 04 Start: 06-21-2021 End: 06-21-2021 ambulatory Audrey Armstrong Facility:[facility] Start: 06-02-2021 AUDIT No PCP None [facility] Work Phone: Start: 06-02-[address] SAL RICHARDSON Facility:[facility] Start: 06-02-[address] SAL RICHARDSON Facility:[facility] Start: 06-02-2021 Encounter for other preprocedural examination Dr. SAL RICHARDSON [facility] Start: 06-02-2021 Encounter for preprocedural cardiovascular examination Dr. SAL RICHARDSON [facility] Start: 05-03-2021 Office outpatient vi sit 40 minutes No PCP None FE-Ppbhsxucxbox-Uvddazl ng-[facility] Work Phone: Start: 03-16-2021 NPV, Provider: Nazario Holloway, Status: Pen, Time: 8:30 AM No PCP None [facility] Work Phone: Start: 03-16-2021 Office outpatient ne w 30 minutes No PCP None [facility] Work Phone: Start: 03-16-2021 Patient encounter procedure No PCP None [facility] Work Phone: Start: 03-13-2021 Office consultation new/estab patient 80 min No PCP None [facility] Work Phone: Start: 03-10-2021 Chart Update No PCP None [facility] [address] Work Phone: Start: 03-06-2021 Telephone encounter No PCP None [facility] Work Phone: Start: 02-12-2021 Chart Update No PCP None [facility] [address] Work Phone: Start: 02-09-2021 Office outpatient ne w 45 minutes No PCP None FW-Lnckwjpankfp-Xsulbu 210 Work Phone: Start: 02-08-2021 AUDIT No PCP None [facility] [address] Work Phone: Procedures Date Procedure Procedure Detail Performing Clinician Start: 06-07-2022 Fusion of Right Tars al Joint with Synthetic Substitute, Open Approach JENI SAEED Start: 06-07-2022 Transfer Right Foot Tendon, Open Approach JENI SAEED Start: 03-28-2022 PSA screening JENI CONNOR Comment on above: Performed By: #### P [facility] #### [facility] [address] [place] [address] Dr. Carolyn King Start: 02-15-2022 Cystoscopy MD [...] MEJIA Start: 01-17-2022 Plain chest X-ray MD Pacheco Work Phone: Start: 09-19-[address] ASIA RICHARDSON Comment on above: Performed By: #### T +S #### [facility] [address] [place] [address] Start: 06-02-[address] ASIA RICHARDSON Comment on above: Performed By: #### U A #### [facility] [address] [place] [id number] Arthroplasty of knee Arely NILL Colonoscopy Arely NILL Excision of cervical intervertebral disc Arely NILL Excision of melanoma Arely NILL Fusion of lateral jeff mbar interbody Arely NILL Fusion of tarsal joints Ricardo ael NILL Plan of Treatment Date Care Activity Detail Author Start: 11-19-2023 Hemolytic complement CH50 level [facility] Start: 07-18-2023 Hemolytic complement CH50 [facility] Start: 02-19-2023 Hemolytic complement CH50 [facility] Start: 10-15-2022 Hemolytic complement CH50 [facility] Start: 09-26-2022 FUV, Provider: Kenton Lawson, Status: Pen, Time: 9:30 AM FUV, Provider: Kenton Lawson, Status: Pen, Time: 9:30 AM CM-Jnwrjcesrbaf-Xwbctjd 5FL DO Work Phone: Start: 05-23-2022 Hemolytic complement CH50 [facility] Start: 05-02-2022 FUV, Provider: Kenton Lawson, Status: Pen, Time: 9:00 AM FUV, Provider: Kenton Lawson, Status: Pen, Time: 9:00 AM WC-Vqkdzmmfskuu-Kohxghk 5FL DO Work Phone: Start: 02-15-2022 End: 02-15-2022 [facility] Work Phone: Start: 02-15-2022 Cystoscopy OR Cysto/Retro/Stent/Ston e/Holmium Laser (Right) [facility] Start: 02-15-2022 Diagnostic radiograp hy of abdomen XR KUB [facility] Start: 02-15-2022 End: 02-15-2022 Admission to same day surgery center Departed Surgical Day Care [facility] [place] Start: 02-13-2022 End: 02-13-2022 Patient encounter procedure Departed Clinical [facility] Start: 01-19-2022 End: 01-19-2022 [facility] Work Phone: Start: 01-15-2022 FUV, Provider: Kenton Lawson, Status: Pablo, Time: 10:00 AM FUV, Provider: Kenton Lawson, Status: Pablo, Time: 10:00 AM YH-Cniwyutcggsj-Keqepds 5FL DO Work Phone: Start: 11-08-2021 Patient encounter procedure [facility] [place] Start: 09-27-2021 End: 09-28-2022 Sodium Chloride 0.9% Injectable Flush Peripheral Line ; via Peripheral LineVolume = 10 mL IntraVenous Flush Every 8 Hours and as Needed Start: 27-Sep-2021 End: 27-Sep-2022 Ordered: 27-Sep-2021 Timothy Steinberg [facility] Start: 09-27-2021 End: 09-28-2022 oxyCODONE Immediate Release 10 mg Oral Tablet Every 4 Hours ; Tablet (OXYIR, ROXICODONE)DOSE = 10 mg Oral Every 4 Hours, PRN Pain - Severe (7-10) Start: 27-Sep-2021 End: 27-Sep-2022 Ordered: 27-Sep-2021 Timothy Steinberg [facility] Start: 09-26-2021 End: 09-27-2022 [facility] Comment on above: HOLD [employer]IL[employer] 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 immediately Start: 09-26-2021 [facility], Provider: Sal Richardson, Status: Pablo, Time: 7:30 AM [facility], Provider: Sal Richardson, Status: Pablo, Time: 7:30 AM LF-Hjbvpktarnoyai-Jgu for Perioperative Med Work Phone: Start: 08-30-2021 FUV, Provider: Sal Richardson, Status: Pen, Time: 11:15 AM FUV, Provider: Sal Richardson, Status: Pablo, Time: 11:15 AM YO-Mbijrppozmgs-Csttdf 210 Work Phone: Start: 08-30-2021 FUV, Provider: Sal Richardson, Status: Pablo, Time: 11:00 AM FUV, Provider: Sal Richardson, Status: Pablo, Time: 11:00 AM AL-Zeveebbacctw-Aasnxf 210 Work Phone: Start: 06-09-2021 [facility], Provider: Sal Richardson, Status: Pen, Time: 7:30 AM [facility], Provider: Sal Richardson, Status: Pen, Time: 7:30 AM [facility] Work Phone: Start: 03-22-2021 SURGWEST, Provider: Nazario Holloway, Status: Pen, Time: 9:40 AM SURGWEST, Provider: Nazario Holloway, Status: Pen, Time: 9:40 AM [facility] Work Phone: Start: 03-13-2021 FUV, Provider: Sal Richardson, Status: Pen, Time: 2:15 PM FUV, Provider: Sal Richardson, Status: Pen, Time: 2:15 PM GQ-Molrfuhtdbjg-Wezovp 210 Work Phone: Complement C3 [Mass/volume] in Serum or Plasma [facility] Work Phone: Complement C3 [Mass/volume] in Serum or Plasma [facility] Complement C3 [Mass/volume] in Serum or Plasma [facility] Complement C3 [Mass/volume] in Serum or Plasma [facility] Complement C4 [Mass/volume] in Serum or Plasma [facility] Work Phone: Complement C4 [Mass/volume] in Serum or Plasma [facility] Complement C4 [Mass/volume] in Serum or Plasma [facility] Complement C4 [Mass/volume] in Serum or Plasma [facility] Hemolytic complement CH50 level [facility] Work Phone: Patient referral [facility] Work Phone: Immunizations Immunization Date Immunization Notes Care Provider Angela dubon 03-27-2022 influenza virus vaccine, unspecified formulation Arely LOGAN [facility] [place] 11-21-2021 SARS-CoV-2 mRNA (luycvyswizz-kyud-foww ose) vaccine Arely LOGAN [facility] [place] 09-22-2021 SARS-CoV-2 (COVID-19 ) mRNA BNT-162b2 vax Arely LOGAN [facility] [place] 06-26-2021 Pfizer-BioNTech COVID-19 Vacc 30 MCG/0.3ML Intramuscular Suspension Audrey Armstrong Work Phone: [facility] 05-01-2021 influenza virus vaccine, unspecified formulation Shun MACHADO [facility] 05-01-2021 Influenza, injectabl e, Madin Charissa Canine Kidney, preservative free, quadrivalent Audrey Armstrong Work Phone: FV-Ospoujuysqgg-Bo sman 210 Work Phone: 10-06-2020 Pfizer-BioNTech COVID-19 Vacc 30 MCG/0.3ML Intramuscular Suspension No PCP None [facility] 09-13-2020 Pfizer-BioNTech COVID-19 Vacc 30 MCG/0.3ML Intramuscular Suspension No PCP None [facility] 06-24-2020 SARS-CoV-2 (COVID-19 ) mRNA BNT-162b2 vax Arely LOGAN [facility] [place] 05-04-2020 influenza virus vaccine, unspecified formulation Shun MACHADO [facility] 05-04-2020 Influenza, injectabl e, Madin Charissa Canine Kidney, preservative free, quadrivalent No PCP None HY-Hymfhnibayvr-Ao sman 210 Work Phone: 05-04-2020 pneumococcal conjuga te vaccine, 13 valent No PCP None [facility] 04-06-2020 influenza virus vaccine, unspecified formulation Shun MACHADO [facility] 04-06-2020 influenza, seasonal, injectable No PCP None JE-Kpuqacnjbgvl-Zx sman 210 Work Phone: 10-25-2011 hepatitis A vaccine, adult dosage No PCP None [facility] 10-25-2011 hepatitis B vaccine, pediatric or pediatric/adolescent dosage No PCP None [facility] 03-30-2011 hepatitis A vaccine, adult dosage No PCP None [facility] 03-30-2011 hepatitis B vaccine, pediatric or pediatric/adolescent dosage No PCP None [facility] 02-15-2011 hepatitis B vaccine, pediatric or pediatric/adolescent dosage No PCP None [facility] 01-20-1998 hepatitis B vaccine, adult dosage No PCP None [facility] 02-24-1997 hepatitis B vaccine, adult dosage No PCP None [facility] 11-11-1996 hepatitis B vaccine, adult dosage No PCP None [facility] 11-02-1996 TD(adult) unspecifie d formulation; Translations: [Td(adult) unspecified formulation] No PCP None [facility] NEGATED: Highlighted row has not occurred!04-15-2019 influenza virus vaccine, unspecified formulation Arely LOGAN [facility] [place] Payers Date Payer Category Payer Self-pay [id number] 2023 Unknown [id number] 2022 Medicare [id number] 1960 Unknown [id number] 2.16. 840.1.078457.3.579.2.356 1961 Unknown [id number] 2.16. 840.1.940938.3.579.2.356 1961 Unknown [id number] 2.16. 840.1.455678.3.579.2.356 1961 Unknown [id number] 2.16. 840.1.593803.3.579.2.356 1961 Unknown [id number] 2.16. 840.1.534495.3.579.2.356 1961 Unknown [id number] 2.16. 840.1.363578.3.579.2.356 1961 Unknown [id number] 2.16. 840.1.478350.3.579.2.356 1961 Unknown [id number] 2.16. 840.1.251462.3.579.2.356 1961 Unknown [id number] 2.16. 840.1.543868.3.579.2.356 1961 Unknown [id number] 2.16. 840.1.145928.3.579.2.356 1961 Unknown [id number] 2.16. 840.1.880254.3.579.2.356 1961 Unknown [id number] 2.16. 840.1.277181.3.579.2.356 1961 Unknown [id number] 2.16. 840.1.131655.3.579.2.356 1961 Unknown [id number] 2.16. 840.1.748482.3.579.2.356 1961 Unknown [id number] 2.16.84 0.1.980010.3.579.2.593 1961 Unknown [id number] 2.16.84 0.1.301384.3.579.2.593 1961 Unknown [id number] 2.16.84 0.1.024927.3.579.2.593 1961 Unknown [id number] 2.16.84 0.1.186283.3.579.2.593 1961 Unknown [id number] 2.16.84 0.1.492421.3.579.2.593 1961 Unknown [id number] 2.16.84 0.1.170769.3.579.2.593 1961 Unknown [id number] 2.16.84 0.1.262062.3.579.2.593 1961 Unknown [id number] 2.16.84 0.1.362908.3.579.2.593 1961 Unknown [id number] 2.16.84 0.1.046986.3.579.2.593 1961 Unknown [id number] 2.16.84 0.1.468058.3.579.2.593 1961 Unknown [id number] 2.16.84 0.1.321128.3.579.2.593 1961 Unknown [id number] 2.16.84 0.1.002049.3.579.2.593 1961 Unknown [id number] 2.16.84 0.1.966049.3.579.2.593 1961 Unknown [id number] 2.16.84 0.1.955200.3.579.2.593 1961 Unknown [id number] 2.16.84 0.1.340670.3.579.2.593 1961 Unknown [id number] 2.16.84 0.1.308653.3.579.2.593 1961 Unknown [id number] 2.16.84 0.1.738420.3.579.2.593 1961 Unknown [id number] 2.16.84 0.1.730179.3.579.2.593 1961 Unknown [id number] 2.16.84 0.1.174736.3.579.2.593 1961 Unknown [id number] 2.16.8 40.1.708055.3.579.2.727 1961 Unknown [id number] 2.16.8 40.1.700643.3.579.2.727 1961 Unknown [id number] 2.16.8 40.1.054662.3.579.2.727 1961 Unknown [id number] 2.16.8 40.1.125543.3.579.2.727 1961 Unknown [id number] 2.16.84 0.1.012974.3.579.2.1259 1961 Unknown [id number] 2.16.84 0.1.616581.3.579.2.1259 1961 Unknown [id number] 2.16.84 0.1.922283.3.579.2.1259 1961 Unknown [id number] 2.16.84 0.1.008212.3.579.2.1259 1961 Unknown [id number] 2.16.84 0.1.588735.3.579.2.1259 1961 Unknown [id number] 2.16.84 0.1.648609.3.579.2.1259 1961 Unknown [id number] 2.16.84 0.1.366521.3.579.2.1259 1961 Unknown [id number] 2.16.84 0.1.266439.3.579.2.1259 1959 Unknown [id number] 1959 Unknown [id number] Unknown Unknown [facility] [place] [place] [id number] Unknown [id number] Unknown [id number] 2.16.8 40.1.411330.3.579.2.531 Unknown [id number] 2.16.8 40.1.892299.3.579.2.531 Unknown [id number] 2.16.8 40.1.675449.3.579.2.531 Social History Date Type Detail Facility [facility] Tobacco smoking consumption unknown [facility] Start: 01-24-2022 End: 02-15-2022 Tobacco smoking status Never smoked tobacco (finding) [facility] Work Phone: Tobacco smoking status Never [facility] [place] Sex Assigned At Male [facility] [place] Start: 1960 Sex Assigned At Male F [facility] Medical Equipment Procedure Code Equipment Code Equipment Origin al Text Equipment Identifier Dates Cystoscopy, with ureteral calculus manipulation and stent placement Polymeric ureteral stent [id number] FDA Start: 02-15-2022 Cystoscopy, with ureteral calculus manipulation and stent placement Polymeric ureteral stent ()[id number] FDA Start: 01-19-2022 Goals Date Patient Goal Desired Activity /State Functional Status Date Assessment Result Facility 04-08-2023 Functional Status N/A [facility] 10-16-2022 Functional Status N/A [facility] 10-02-2022 Functional Status N/A [facility] 01-30-2022 Functional Status N/A [facility] 01-24-2022 Functional Status N/A [facility] Functional observable [facility] Mental Status Date Assessment Result Facility 09-26-2021 Cognitive functions 27-Sep-19 2212:26 [facility] Clinical Notes 10-31-2020 to 04-08-2023 [...] include: ?8 oz (237 mL) of milk, lprqycy-khgbwgcgkiju-xfdit milk, and calcium-fortifiedfruit juice. Calcium-fortified means that [...] ?Spinach (cooked), rhubarb, beets, sweet potatoes, and Brazilian chard. ?Peanuts. ?Potato chips, pitcairn islander fries, and baked potatoes with skin on. ?Nuts and nut products. ?Chocolate. If you regularly take a diuretic medicine, make sure to eat at least 1 or 2 servings of fruits or vegetables that are high in potassium each day. These include: ?Avocado. ?Banana. ?[place], prune, carrot, or tomato juice. ?Baked potato. [...] magnesium, fish oil, or vitamin B6. Take irvu-zws-dosqbcq and prescription medicines only as told by [...] Casseroles. Pizza. Lasagna. Frozen meals. Potato chips. Surinamese fries. The items listed above may not [...] provider. Document Revised: 02/19/2022 Document Reviewed: 02/19/2022 [employer] Patient Education 2022 [employer]. Follow Up Care 10/16/2022 15:04:55 With:CHRIS RIVERA, Shun Mirza, URL Address: [address] [address]- When: Unknown [facility] [place] book 03-12-2023 Note HNO ID: [id number] Author: Antwan Soriano MD Service: ? Author [...] No PCP: Audrey Armstrong MD [address] [facility] [address] FELLOW / RESIDENT: No fellow or resident assisted in this office visit. Antwan Soriano MD [facility] 10-16-2022 Hospital Discharge instructions Patient Education [...] include: ?8 oz (237 mL) of milk, gitaeve-ispbmnoloodu-shxdh milk, and calcium-fortifiedfruit juice. Calcium-fortified means that [...] ?Spinach (cooked), rhubarb, beets, sweet potatoes, and Brazilian chard. ?Peanuts. ?Potato chips, pitcairn islander fries, and baked potatoes with skin on. ?Nuts and nut products. ?Chocolate. If you regularly take a diuretic medicine, make sure to eat at least 1 or 2 servings of fruits or vegetables that are high in potassium each day. These include: ?Avocado. ?Banana. ?[place], prune, carrot, or tomato juice. ?Baked potato. [...] magnesium, fish oil, or vitamin B6. Take rflu-fro-mwjkarc and prescription medicines only as told by [...] Casseroles. Pizza. Lasagna. Frozen meals. Potato chips. Surinamese fries. The items listed above may not [...] provider. Document Revised: 02/19/2022 Document Reviewed: 02/19/2022 [employer] Patient Education 2022 [employer]. Follow Up Care 02/19/2022 10:35:10 With:CHRIS RIVERA, Shun Mirza, URL Address: [address] [place] [address]- When: Unknown [facility] Roselyn 08-16-2022 Note PROCEDURE: XR FOOT R T [...] authenticated by: LAURY ZEPEDA Date: 2022-08-16 18:55 [facility] 07-19-2022 Note PROCEDURE: XR FOOT R [...] authenticated by: LAURY ZEPEDA Date: 2022-07-19 12:30 [facility] 07-06-2022 Note PROCEDURE: XR FOOT R [...] authenticated by: LAURY ZEPEDA Date: 2022-07-06 15:41 [facility] 06-07-2022 Note PROCEDURE: XR ANKLE RT MIN [...] by: BANDAR SAENZ Date: 2022-06-07 14:32 [facility] 06-07-2022 Note PROCEDURE: XR ANKLE RT MIN [...] authenticated by: BANDAR SAENZ Date: 2022-06-07 14:32 [facility] 01-30-2022 Hospital Discharge instructions Patient Education [...] include: ?Spinach. ?Rhubarb. ?Beets. ?Potato chips and pitcairn islander fries. ?Nuts. If you regularly take a diuretic medicine, make sure to eat at least 1 2 fruits or vegetables high in potassium each day. These include: ?Avocado. ?Banana. ?[place], prune, carrot, or tomato juice. ?Baked potato. [...] Casseroles. Pizza. Lasagna. Frozen meals. Potato chips. Surinamese fries. Summary You can reduce your risk [...] 10/05/2011 Document Revised: 09/30/2019 Document Reviewed: 05/21/2017 [employer] Patient Education 2020 [employer] Follow Up Care 01/24/2022 12:02:31 With:CHRIS RIVERA, Shun Mirza, URL Address: [facility] [address] [address]- When: Unknown [facility] [place] 09-27-2021 Note Send Summary: Discharge Summary Providers: Provider RoleProvider Name Sal Perez Nicholas PrimaryHoy, Douglas M Note Recipients: Audrey Armstorng MD - [id number] [] Discharge: Summary: Admission Date: .26-Sep-2021 06:01:00 [...] floor. 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 AT [facility] [id number] [place] [address]. [facility] ON 10/18/2021 AT 0930 WITH K[facility]ON SANTIAGO. REHAB FACILITIES OR HOME CARE MAY REMOVE NATONIO OR SUTURES. Wound Site: BACK (Lumbar Spine) Wound Type: surgical incision Change Dressing: daily Cleanse With: soap and water Cover With: abdominal dressing Tape With: paper tape Instructions: no lotions, creams, or tub soaks Other Instructions: PLEASE HAVE ANTONIO REMOVED IN 3 WKS. AT [facility] [id number] [place] [address]. [facility]TH FLOOR ON 10/18/2021 AT 0930 WITH [...] to Schedule in: 6 weeks, PLEASE CALL [phone] TO SCHEDULE YOUR APPOINTMENT FOR 5-6 WEEKS FOLLOWING YOUR SURGERY. Location: [facility] [id number] [place] [address] 5TH FLOOR OR [address] [place] [address]/ [facility] [address], Phone Number: Office: (September,./[place]) - [phone] Discharge Medications: Home Medication NIFEdipine 30 mg [...] tab(s) orally every (more content not included)... [facility] 09-27-2021 Note Rehab: Info: Mode of Treatmentoccupational therapy; co-evaluation with PT for pt safety and to optimize pt's therapeutic potential Time IN10:00 Time OUT10:27 Total Treatment Aehlwuv22 Patient in ... at end of sessionchair; alarm on Communicated with ... at end of sessionbedside nurse Patient Effortexcellent Symptoms Noted During/After Treatmentnone Patient Profile Reviewedyes Onset of Illness/Injury or Date of [id number] Reason for ReferralXLIF L3/4, 4/5;2. Navigated percutaneous [...] WFL Mobility/Tone: Bed Mobility Assessment/Interventionssupine to sit Hrgiek-rb-Tln [place] (Bed Mobility)standby assist; verbal cues Assistive Device (Bed Mobility)bed rails Comment, Bed MobilityVia log rolling technique Transfer Assessment/Interventionssit to stand transfer; stand to sit transfer Sit-Stand [place] (Transfers)standby assist; verbal cues Sit-Stand Assistive Device (Transfers)no AD Stand-Sit [place] (Transfers)standby assist; verbal cues Stand-Sit Assistive Device (Transfers)no AD Safety Issues Impacting Function (Mobility)insight into deficits/self awareness Impairments Impacting Function (Mobility)balance; pain ActivityPt completed functional household distance with SBA for safety (pt declined use of device) ADL: BADL Assessment/Interventionlower body dressing; grooming; toileting [place] Level (Lower Body Dressing)pants/bottoms; moderate assist (50% patient effort) Position (Lower Body Dressing)edge-of-bed sitting [place] Level (Grooming)supervision Position (Grooming)standing Comment (Grooming)Standing oral care at sink [place] Level (Toileting)supervision Position (Toileting)standing Motor: Sitting, Static (Balance)good balance Sitting, Dynamic (Balance)good balance Yda-jl-Hqogj (Balance)fair balance Standing, Static (Balance)fair balance Standing, [...] Total Score17 Short Term Goals: Transfer: Established [id number] Transfer: Transfer Type Wtefasd-us-iyabc/ervkh-wq-krb; (more content not included)... [facility] 09-26-2021 Note Post Operative Note: PreOp Diagnosis: Lumbar stenosis, spondylolisthesis L3-5 Post-Procedure Diagnosis: Lumbar stenosis, spondylolisthesis L3-5 Procedure: ALIF via extreme lateral approach L3/4, L4/5 with cage x 2 PSF with instrumentation L3-5 Surgeon: Dr. Richardson Resident/Fellow/Other Er Rn: Renny Steinberg Estimated Blood Loss (mL): 150 [...] Last Updated: 04-Oct-2021 15:17 by Sal Richardson) [facility] 09-26-2021 History of Present illness Narrative Jay is a pleasant 62-year-old ekvry-ntms-fbazjlvs male who presents today with his for [...] not corrected for spelling or grammatical errors. JP-Betizvtmwtqk-Zrflnbk 5F DO Work Phone: 09-26-2021 Note History of [...] the note. I personally evaluated the patient [id number] Electronic Signatures: Sal Richardson) (Signed 29-Sep-2021 11:39) Authored: Note Completion Co-Signer: History of Present Illness, Allergies, Home Medication Review, Impression/Procedure, ERAS, Physical Exam, Consent, Note Completion Timothy Steinberg (Resident)) (Signed 26-Sep-2021 05:59) Authored: History of Present Illness, Allergies, Home Medication Review, Impression/Procedure, ERAS, Physical Exam, Consent, Note Completion Last Updated: 29-Sep-2021 11:39 by Sal Richardson) [facility] 08-25-2021 Reason for referral (narrative) Reason for Referral: XLIF L3/4, 4/5;2. 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 Richardson Resident/Fellow/Other Er Rn: Skip/ Katalina Procedure: anterior cervical discectomy/ decompression, [...] Last Updated: 27-Jun-2021 14:14 by Sal Richardson) [facility] 06-21-2021 Note History & Physical [...] the note. I personally evaluated the patient [id number] Electronic Signatures: Sal Richardson) (Signed 27-Jun-2021 13:45) Authored: Note Completion Co-Signer: History & Physical Reviewed, ERAS, Consent, Note Completion Cheikh August (Resident)) (Signed 21-Jun-2021 06:23) Authored: History & Physical Reviewed, ERAS, Consent, Note Completion Last Updated: 27-Jun-2021 13:45 by Sal Richardson) [facility] 12-22-2020 History of Present illness [...] not corrected for spelling or grammatical errors. PC-Lxygaqxqrckp-Uduywd 210 Work Phone: 10-31-2020 History of Present illness Narrative 60 yr old male with back pain. 10/31 [facility] Work Phone: 10-31-2020 History of Present illness [...] foot surgeries and total knee replacement. [facility] Work Phone: Evaluation + Plan note Future Appointments Appointment Date:01/30/2022 09:15:00 AM Scheduled Provider:Shun MACHADO MD Location:[facility] Appointment Type:URO Office Visit Appointment Date:07/31/2022 02:00:00 PM Scheduled Provider:Arely LOGAN MD Location:[facility] Appointment Type: Established [facility] [place] Evaluation + Plan note Future Appointments Appointment Date:07/31/2022 02:00:00 PM Scheduled Provider:Arely LOGAN MD Location:[facility] Appointment Type:[place] [address] [facility] Evaluation + Plan note Future Appointments Appointment Date:10/16/2022 02:15:00 PM Scheduled Provider:Shun MACHADO MD Location:[facility] Appointment Type:URO Office Visit Future Scheduled TestsXR Abdomen 1 View 02/19/22 [facility] Evaluation + Plan note Future Appointments Appointment Date:02/22/2023 10:45:00 AM Scheduled Provider:Shun MACHADO MD Location:[facility] Appointment Type:URO Office Visit Future Scheduled TestsXR Abdomen 1 View 02/19/22 [facility] Evaluation + Plan note Future Appointments Appointment Date:04/13/2024 09:15:00 AM Scheduled Provider:Shun MACHADO MD Location:[facility] Appointment Type:URO Office Visit [facility] Evaluation note Neurological: alert and oriented x5Ynrzbmxzejvlagv: Spine Exam:Dressings CDINo bruising, swelling, or erythemaL1: [...] appearing, no acute distress resting in bed [facility] Evaluation note No assessment information availa [facility] Work Phone: History of Present illness [...] not corrected for spelling or grammatical errors. FU-Hhevsukgdnju-Lwgoefv 5FL DO Work Phone: Hospital course Narrative No data available for this section [facility] Discharge instructions Activity:activity as tolerated and [...] HAVE ANTONIO REMOVED IN 3 WKS. AT [facility] [address] [facility]TH FLOOR ON 10/18/2021 AT 0930 WITH [facility]ON SANTIAGO.REHAB FACILITIES OR HOME CARE MAY REMOVE ANTONIO OR SUTURES.Wound Care 2:Wound Site: BACK (Lumbar Spine)Wound Type: surgical incisionChange Dressing: dailyCleanse With: soap and waterCover With: abdominal dressingTape With: paper tapeInstructions: no lotions, creams, or tub soaksOther Instructions: PLEASE HAVE ANTONIO REMOVED IN 3 WKS. AT [facility] [address] [facility]TH FLOOR ON 10/18/2021 AT 0930 WITH [...] Appointment 1:Physician/Dept/Service: Dr. Sal Richardson/ Orthopaedic Surgery/ SpineTaye for Referral: Postoperative Follow-Up AppointmentCall to Schedule in: 6 weeks, PLEASE CALL [phone] TO SCHEDULE YOUR APPOINTMENT FOR 5-6 WEEKS FOLLOWING YOUR SURGERY.Location: [facility] [address] [facility] 5TH FLOOR OR [address] [facility] [address], [phone] Number: Office: (September,./MAYKEL) - [phone]: Please Call Emmie Gallagher RN at [phone] For Any Post-Op Questions [facility] Discharge instructions No data available for this section [facility] [place] Progress note No data available for this section General Surgery LiquidM Summary Purpose Family History No Family History [...] weeks. He lives far away, in the [facility]. If he gets better with the injections, perhaps we can watch wkgz-nbs-rck and this is obviously what we are [...] weeks. He lives far away, in the [facility]. If he gets better with the injections, perhaps we can watch nmjp-wzv-unw and this is obviously what we are [...] spine from 04/12/2021 is available from the [facility] on a CD. This shows evidence of [...] section and content) DATE CREATED AUTHOR 01/14/2021 [facility] DATE CREATED AUTHOR AUTHOR'S ORGANIZ ATION 03/11/2021 [facility] DATE CREATED AUTHOR AUTHOR'S ORGANIZ ATION 08/06/2021 [facility] DATE CREATED AUTHOR AUTHOR'S ORGANIZ ATION 05/03/2022 [employer] DATE CREATED AUTHOR AUTHOR'S ORGANIZ ATION 05/05/2022 [facility] DATE CREATED AUTHOR AUTHOR'S ORGANIZ ATION 11/30/2022 [facility] DATE CREATED AUTHOR AUTHOR'S ORGANIZ ATION 03/14/2023 [facility] DATE CREATED AUTHOR AUTHOR'S ORGANIZ ATION 04/10/[address] [facility] DATE CREATED AUTHOR AUTHOR'S ORGANIZ ATION 08/28/2023 [facility] DATE CREATED AUTHOR AUTHOR'S ORGANIZ ATION 11/21/2023 [facility] <item> Privacy Markings (unrecogniz ed section and content) Section Author: Arthur Patten PROHIBITION ON REDISCLOSURE OF CONFIDENTIAL INFORMATION This notice accompanies a disclosure of information concerning a client made to you with the consent of such client. Care Team (unrecognized sect ion and content) Team Status: Inactive Member Role Status Gary Armstrong MD Primary Care Provider Active Shun Machado MD Attending Provider Active Team Status: Active Member Role Status Gary Armstrong MD Primary Care Provider Active Team Status: Inactive Member Role Status Gary Armstrong MD Primary Care Provider Active Dmitriy De Leon MD Attending Provider Active Team Status: Inactive Member Role Status Gary Armstrong MD Primary Care Provider Active Hudson De Leon MD Attending Provider Active Team Status: Inactive Member Role Status Gary Armstrong MD Primary Care Provider Active Start: July 18, 2023 End: July 18, 2023 TAD Neilsen Attending Provider Active Start: July 18, 2023 End: July 18, 2023 Team Status: Inactive Member Role Status Gary Armstrong MD Primary Care Provider Active Start: November 19, 2023 End: November 19, 2023 TAD Nielsen Attending Provider Active Start: November 19, 2023 End: November 19, 2023 Goals (unrecognized section and content) Goals may [...] BE BASED ON THE PRIMARY CLINICAL RECORDS. [facility]. provides no warranty or guarantee of the accuracy or completeness of information in this document.
[2024-01-09 06:31] LABS: Basophils Absolute Auto 0.1 10^3/uL (0.0-0.1); Basophils Percent Auto 0.6 % (0.2-2.0); Eosinophils Absolute Auto 0.2 10^3/uL (0.0-0.7); Eosinophils Percent Auto 2.4 % (0.9-7.0); Hematocrit 45.1 % (42.0-54.0); Hemoglobin 15.3 g/dL (14.0-18.0); Immature Granulocytes Abs Auto 0.03 10^3/uL (0.00-0.03); Immature Granulocytes Pct Auto 0.4 % (0.0-0.5); Lymphocytes Absolute Auto 1.5 10^3/uL (1.2-3.8); Lymphocytes Percent Auto 17.8 % (20.5-60.0); Mean Corpuscular HGB Conc 33.9 g/dL (29.9-35.2); Mean Corpuscular Hemoglobin 32.6 pg (25.9-34.0); Mean Corpuscular Volume 96.2 fL (80.0-94.0); Mean Platelet Volume 10.3 fL (9.5-13.5); Monocytes Absolute Auto 0.9 10^3/uL (0.3-0.8); Neutrophils Absolute Auto 5.6 10^3/uL (1.4-6.5); Neutrophils Percent Auto 67.8 % (43.0-75.0); Platelet Count 228 10^3/uL (150-450); Red Blood Count 4.69 10^6/uL (4.70-6.10); Red Cell Distribution Width 12.1 % (11.0-15.0); White Blood Count 8.3 10^3/uL (4.0-11.0)
[2024-01-09 06:53] LABS: Glucometer 110 mg/dL (74-106)
[2024-01-09] MEDS: LACTATED RINGER'S SOLUTION 1,000 ML 50 ML IV ×2 (06:54→11:28)
[2024-01-09] MEDS: CEFAZOLIN SODIUM/DEXTROSE,ISO 2 GM/50 ML PIGGYBACK IV (07:46)
--- NOTE | 2024-01-09 07:53 | PC.NURSE ---
Patient was consented for peripheral block. Patient marked per protocol. O2 and monitors applied. Patient positioned. Bedside ultrasound used by Jonathan MCKEON to locate sites. Popliteal block started at 0736 and ended at 0740. Saphenous block started at 0741 and ended at 0744. Patient tolerated the process well. Patient remained on monitors until taken to the OR.
--- NOTE | 2024-01-09 11:22 | P.ORON_ITS ---
Brief Operative Note Date of procedure: 01/09/24 Pre-op diagnosis general: Right talonavicular joint nonunion, foot arthritis, forefoot varus, hindfoot valgus, retained orthopedic hardware Post-op diagnosis: same as pre-op Procedure: Procedure performed: Right excision of nonunion from talonavicular joint with revision of medial column fusion (talonavicular and naviculocuneiform joint), medial displacement calcaneal osteotomy, removal of orthopedic hardware Indications for procedure: Patient is a 63-year-old male who is well-known to my practice with past medical history including lupus and Raynaud's who previously underwent right medial column and subtalar joint fusion in May 2022. Unfortunately his postop recovery was complicated by nonunion. He was initially treated with prolonged immobilization and bone stimulator which did not lead to fusion of his talonavicular joint. We had discussed multiple times of the risks and benefits of revision but given to family and personal health problems this was delayed for some time. His most recent appointment he wished to proceed with revision and we discussed all of his options. Ultimately he provided written and verbal consent for the above procedures and was educated on potential risks and complications. Intraoperative findings: Unstable nonunion noted at the talonavicular joint with partial union of the naviculocuneiform joint. There is a significant amount of fibrotic tissue within the talonavicular joint as well as a portion of the medial and intermediate naviculocuneiform joints. First tarsometatarsal joint was fused. No signs of infection. After hardware removal from the subtalar joint subtalar joint was stable on stress examination under fluoroscopy and on the table. Good stable fixation was obtained with reduction of malalignment. Procedure in detail: Patient was identified in preoperative holding by myself which time correct side and site were marked and consent was obtained. Regional anesthesia was performed by the anesthesia team the patient was brought back to the operating theater placed on table in supine position. Preoperative antibiotics were started and the right lower extremity was prepped and draped in usual sterile fashion. Formal timeout was performed and the right foot and ankle was exsanguinated and the tourniquet was inflated. Longitudinal incision was placed between the extensor hallucis longus and tibialis anterior tendons along the medial column extending from the ankle to the first metatarsal. Combination of sharp and blunt dissection gained access to the medial column while protecting all neurovascular structures. Full-thickn ess medial and lateral flaps were raised to expose the talonavicular, naviculocuneiform and first tarsometatarsal joint. There is good bony consolidation across the first tarsometatarsal joint and a small amount of fusion at the medial naviculocuneiform joint but greater than 50% was filled with fibrous tissue. The talonavicular joint was fully fibrous and nonunited. All fibrous and nonviable tissue was excised which included the naviculocuneiform and talonavicular joints. The portion of osseous union at the medial aspect of the medial cuneiform joint was preserved. These joints were then prepared for fusion with curettes osteotomes and rongeurs as well as a 2.0 mm drill bit. The medial column was then planed to accommodate plate fixation. During this time the anterior to posterior subtalar screw was identified and removed with appropriate screwdriver. Then a 3 cm incision was placed in the posterior heel and the posterior to anterior subtalar screw was identified and removed with appropriate screwdriver. Cerament and bone allograft (see below) was prepared on the back table while the surgical site was irrigated with copious sterile saline. Majority of the bone graft mixture was packed into the talonavicular joint and naviculocuneiform joint with a small portion being saved for the end of the case. The Cerament bone void filler was injected into the screw holes from the previously removed subtalar screws and allowed to harden. Then while holding reduction the talonavicular joint was pinned and a 3.5 mm talonavicular plate was then provisionally fixated spanning the joint. Fluoroscopy confirmed placement of the fixation and 2 locking screws were placed in the distal aspect of the plate fixating the navicular. Then a lag screw was placed through the plate for added compression across the talonavicular joint which was noted on the table. Finally to locking screws were placed in the proximal aspect of the plate. An additional guidewire was placed from the navicular tuberosity into the talus and two 4.0 mm cannulated headless screws were placed accordingly for additional fixation. The talonavicular joint was now stable as determined under stress examination on the table as well as under fluoroscopy. Stress examination of the naviculocuneiform joint showed no motion however due to only partial union a 18 mm stable was used to span this joint for added stability and fixation. Forefoot varus now been reduced however the hindfoot remained in valgus. C-arm was used to identify safe incision placement over the lateral calcaneus anterior to the Achilles and plantar fascial attachments. Sharp and blunt dissection to the lateral calcaneus was performed. Sural nerve was not visualized but protected. A saw was used to create an osteotomy in line with the incision and the osteotomy was finished with an osteotome on medial cortex. A lamina spreaders were placed inside the osteotomy to stretch soft tissues. Deep fascia from the medial column incision was closed with observable suture to avoid any loss of bone graft and once closed the tourniquet was deflated as it had reached 120 minutes. A prompt hyperemic response was noted. Using the existing posterior calcaneal incision two guidewires were drilled into the tuberosity but not across the osteotomy. The lamina roll machine operator was removed and with the foot plantarflexed and the knee bent the tuberosity was translated medially and rotated out of valgus into a neutral position. I held the tuberosity in the corrected position while my collections assistant advanced the previously placed guidewires. Fluoroscopic guidance was then checked to ensure proper placement of the guidewires. A 6.5 mm headless compression screws were place over the proximal wire spanning the osteotomy and the subtalar joint. A 5.5 mm screw was then placed over the distal wire spanning only the osteotomy. Guide wires were then removed. A shelf of overhanging bone at the osteotomy site was smoothed with a rongeur and rasp. Surgical sites were irrigated with copious saline and incisions were then closed in layers. A dry sterile dressing including a multilayer modified Holman posterior splint was applied. Patient tolerated the procedure and anesthesia well was transported to the recovery room with vital signs stable and brisk capillary refill to the right toes. Postoperative plan: Discharged home under family's care Patient is to be nonweightbearing for 3 weeks and depending on appearance of x- rays patient may be transition to total contact cast after that point Prescriptions were sent to his pharmacy Patient is to follow-up in 1 week for dressing change Implants: Medline 3.5 mm talonavicular plate, 18 mm staple, 4.0 mm cannulated screws (x2), 6.5 mm & 5.5 mm cannulated screws Bone allograft: Isto Sparc 5cc, Concelltrate 2.5 cc & Proteios; Cerament bone void filler 5 cc Anesthesia: regional and General-LMA Surgeon: Chance Schaffer Procurement Representative: Giuseppe Tavera Estimated blood loss (mL): 50 Tourniquet time (min): 120 Condition: stable Disposition: PACU
--- NOTE | 2024-01-09 11:33 | XR_ITS ---
The [address] [address] Patient Name: RG SIMEON MRN: [id number] date: 1960 Sex: M Assigned Patient Location: [facility] Current Patient Location: Accession/Order Number: [id number] Exam Date: 01/09/2024 11:55 Report Date: 01/10/2024 04:38 At the request of: TAMMY TONY Procedure: XR ankle RT min 3V PROCEDURE: XR foot RT min 3V, XR ankle RT min 3V HISTORY: Postop x-ray PACU COMPARISON: XR foot and ankle right 11/20/2023 FINDINGS: BONES:Posterior calcaneal osteotomy and paired. Medial midfoot fusion via multiple hardware devices; no appreciable hardware fracture. No bone fracture or dislocation. Evidence of prior bone harvesting from distal tibia. Intact uniform ankle joint. SOFT TISSUES:Expected postoperative findings. Images were obtained to cast material. EFFUSION:None visible. OTHER: Negative. XR/XR ankle RT min 3V IMPRESSION: 1. Postoperative changes as detailed above. Electronically authenticated by: LAURY ZEPEDA Date: 01/10/2024 04:38
--- NOTE | 2024-01-09 11:33 | XR_ITS ---
The [address] [address] Patient Name: RG SIMEON MRN: [id number] date: 1960 Sex: M Assigned Patient Location: [facility] Current Patient Location: Accession/Order Number: [id number] Exam Date: 01/09/2024 11:55 Report Date: 01/10/2024 04:38 At the request of: TAMMY TONY Procedure: XR foot RT min 3V PROCEDURE: XR foot RT min 3V, XR ankle RT min 3V HISTORY: Postop x-ray PACU COMPARISON: XR foot and ankle right 11/20/2023 FINDINGS: BONES:Posterior calcaneal osteotomy and paired. Medial midfoot fusion via multiple hardware devices; no appreciable hardware fracture. No bone fracture or dislocation. Evidence of prior bone harvesting from distal tibia. Intact uniform ankle joint. SOFT TISSUES:Expected postoperative findings. Images were obtained to cast material. EFFUSION:None visible. OTHER: Negative. XR/XR foot RT min 3V IMPRESSION: 1. Postoperative changes as detailed above. Electronically authenticated by: LAURY ZEPEDA Date: 01/10/2024 04:38
[2024-01-09 11:57] LABS: Glucometer 156 mg/dL (74-106)
--- NOTE | 2024-01-09 13:11 | PC.NURSE ---
1311: pt complaint of left eye pain,there is redness to the left eye. will notify anesthesia.
--- NOTE | 2024-01-09 13:41 | PC.NURSE ---
1340: MIKE Castillo at bedside to examine pt due to left eye complaint. no orders recieved.
--- NOTE | 2024-01-09 14:11 | PC.NURSE ---
1410: quality analyst/technical writer called regarding pts eye,spoke with ciara and she advised that the call and make an appointment for him to be seen and that they could not prescribe any medication without seeing him in the office. made aware.
--- NOTE | 2024-01-09 14:36 | PC.NURSE ---
1430: pt up to chair with minimal assistance.
== END 2024-01-09 15:26 | disposition home or self-care (01) ==
PROVIDERS: PCP Family Medicine; Visit Provider Podiatrist Foot & Ankle Surgery
PROC: (CPT 20680; principal; 2024-01-09 07:30)
DX: M21.071 Valgus deformity, not elsewhere classified, right ankle (principal); M96.0 Pseudarthrosis after fusion or arthrodesis; M25.371 Other instability, right ankle; M76.71 Peroneal tendinitis, right leg; I10 Essential (primary) hypertension; K21.9 Gastro-esophageal reflux disease without esophagitis; M19.90 Unspecified osteoarthritis, unspecified site; Z79.899 Other long term (current) drug therapy
CPT/HCPCS: 20680; 28300; 28320; 28730; 36415; 64445; 64450; 73610; 73630; 76000; 76942; 82948; 85025; C1713; J0131; J0690; J1100; J1885; J2250; J2405; J2704; J3010

== ENCOUNTER 2024-02-04 10:44 | Outpatient (OUT) | payer MEDICARE, SELFPAY ==
--- NOTE | 2024-02-04 | XR_ITS ---
The [address] [address] Patient Name: RG SIMEON MRN: [id number] date: 1960 Sex: M Assigned Patient Location: Current Patient Location: Accession/Order Number: [id number] Exam Date: 02/04/2024 10:55 Report Date: 02/06/2024 06:17 At the request of: JENI SAEED Procedure: XR foot RT min 3V PROCEDURE: XR foot RT min 3V HISTORY: RIGHT FOOT PAIN COMPARISON: XR foot right 01/09/2024 FINDINGS: BONES:Prior calcaneal osteotomy and fusion. Fusion of the hindfoot and medial midfoot; no appreciable hardware fracture loosening. SOFT TISSUES:Mild soft tissue swelling surrounding the foot and ankle. Cast material has been removed. EFFUSION:None visible. OTHER: Negative. XR/XR foot RT min 3V IMPRESSION: 1. Stable surgical changes without evidence of hardware failure or change in alignment. Electronically authenticated by: LAURY ZEPEDA Date: 02/06/2024 06:17
--- OUTSIDE RECORDS SUMMARY | 2024-02-04 11:01 | XMS_ITS | CCD ---
Author Organization [facility] Care Team Providers Care Guest Relations Representative Name Role Phone None, No PCP Unavailable Unavailable Unavailable Unavailable Audrey Armstrong M Unavailable Audrey Armstrong M Unavailable Sal Richardson Unavailable Kenton Lawson Randy Unavailable Unavailabl e Leandra Audrey Primary Care Physician MD Audrey Armstrong Primary Care Provider [phone] MD Shun Machado Attending Provider [phone] DEBRA, Dr. SAL COLEMAN Attending Unavail able [place], Mr. Suarez Attending Unavailabl e Hoy, Audrey Arely Primary Care Unavailable Hoy, Audrey Arely Primary Care Unavailable [place]vch[place], Mr. Suarez Attending Unavailabl e Hoy, Audrey Arely Primary Care Unavailable [place], Mr. Suarez Attending Unavailabl e Self, Referral Referring Unavailable Hoy, Audrey Arely Primary Care Unavailable Dr. SAL RICHARDSON Attending Unavail able [place], Mr. Suarez Attending Unavailabl e Hoy, Audrey Arely Primary Care Unavailable [place], Mr. Suarez Referring Unavailabl e [place]ik, Mr. Suarez Referring Unavailabl e Hoy, Audrey Arely Primary Care Unavailable [place], Mr. Suarez Attending Unavailabl e [place], Mr. Suarez Referring Unavailabl e [place], Mr. Suarez Attending Unavailabl e Hoy, Audrey Arely Primary Care Unavailable Hoy, Audrey Arely Primary Care Unavailable UNKNOWN, UNKNOWN Referring Unavailable Dr. SAL RICHARDSON Attending Unavail able Hoy, Audrey Arely Primary Care Unavailable Dr. SAL RICHARDSON Attending Unavail able DEBRA, Dr. SAL COLEMAN Referring Unavail able DEBRA, Dr. SAL COLEMAN Admitting Unavail able DEBRA, Dr. SAL COLEMAN Attending Unavail able Audrey Armstrong Primary Care Unavailable Audrey Armstrong Primary Care Unavailable DEBRA, Dr. SAL COLEMAN Attending Unavail able DEBRA, Dr. SAL COLEMAN Referring Unavail able DEBRA, Dr. SAL COLEMAN Admitting Unavail able DEBRA, Dr. SAL COLEMAN Attending Unavail able Audrey Armstrong Primary Care Unavailable DEBRA, Dr. SAL COLEMAN Attending Unavail able MD Audrey Armstrong Primary Care Provider [phone] MD Dmitriy De Leon Attending Provider MD Audrey Armstrong Primary Care Provider [phone] MD Dmitriy De Leon Attending Provider [phone] JENI SAEED Admitting Unavailable ZIEBMALIKA, DR LAURY Costello Consulting Unavailable HOY ., DR VENTURA Primary Care Unavailable HIGHLANDERJENI Attending Unavailable JENI SAEED Consulting Unavailable HOY ., DR VENTURA Primary Care Unavailable EDISONANDERJENI Consulting Unavailable JENI SAEED Admitting Unavailable JENI SAEED Attending Unavailable NILL ., DR MCGEE Admitting Unavailable NILL ., DR MCGEE Attending Unavailable ZIEBER, DR LAURY Costello Consulting Unavailable HOY ., DR VENTURA Primary Care Unavailable NILL ., DR MCGEE Consulting Unavailable HOY ., DR VENTURA Primary Care Unavailable EDISONANDERJENI Admitting Unavailable JENI SAEED Attending Unavailable ZIEBER, DR LAURY Costello Consulting [...] Consulting Unavailable HIGHLANDER, JENI Albrecht Consulting Unavailable YAAKOVCHARLES Brown Consulting Unavailable ROCIO ., RADHA HANCOCK Consulting Unavailable GEMBUS, LAKIA Consulting Unavailable CINDY TINSLEY Consulting Unavailable OMAR, WADE Attending Unavailable OMAR, [...] Care Unavailable OMAR, WADE Consulting Unavailable HIGHLANDER, PETER D Consulting Unavailable HIGHLANDER, PETER D Admitting Unavailable HIGHLANDER, JENI Albrecht Attending Unavailable HOY ., DR VENTURA Primary Care Unavailable WADE NELSON Attending Unavailable ZIEBER, DR LAURY Costello Consulting Unavailable OMAR, WADE Admitting DR AUDREY Person Primary Care Unavailable WADE NELSON Consulting Unavailable MD Audrey Armstrong Primary Care Provider [phone] MD Hudson De Leon Attending Provider ANTWAN SORIANO Attending Unavailable AUDREY ARMSTRONG Primary Care Unavailable Shun MACHADO Attending Unavailable Shun MACHADO Attending Unavailable Shun MACHADO Attending Unavailable Arely LOGAN Attending Unavailable MD Audrey Armstrong Primary Care Provider [phone] TAD Manriquez Attending Provider STEFANIE KNIGHT Attending Unavailable HURST, NABILA Referring Unavailable KELBLEY, GENE Attending Unavailable HURST, NABILA Referring Unavailable KELBLEY, GENE Attending Unavailable HURST, NABILA Referring Unavailable KELBLEY, GENE Attending Unavailable HURST, NABILA Referring Unavailable BLACKSTON, STEFANIE T Attending Unavailable HURST, NABILA Referring Unavailable KELBLEY, GENE Attending Unavailable HURST, NABILA Referring Unavailable PB MAY Attending Unavailable HURST, NABILA Referring Unavailable BLACKSTON, STEFANIE T Attending Unavailable HURST, NABILA Referring Unavailable MD Audrey Armstrong Primary Care Provider [phone] TAD Manriquez Attending Provider Sabrina Manriquez Admitting Unavailable Sabrina Manriquez Attending Unavailable Audrey Armstrong Primary Care Unavailable Sabrina Manriquez Attending Unavailable Audrey Armstrong Primary Care Unavailable Sabrina Manriquez Admitting Unavailable Audrey Armstrong Primary Care Unavailable Hudson De Leon Admitting Unavailable Hudson De Leon Attending Unavailable Allergies Allergy Classification Reported Allergen(s) Allergy Type Date of Onset Reaction(s) Facility (17 sources) Penicillins; Translations: [Penicillins] Allergy to drug (finding) 7 Rash [facility] Work Phone: (6 sources) Penicillin; Translations: [penicillin] Drug Allergy Eruption of skin (disorder) [facility] [place] (2 sources) oxyCODONE Drug Allergy 1 [facility] (2 sources) Penicillins Drug allergy (disorder) 7 [facility] Repository (1 source) Penicillins Drug allergy (disorder) 2 [facility] Repository Medications Current Medications Medication Drug [...] for 30 day(s), 120 tab(s), Refill(s) 11, [facility], 170, cm, 10/16/22 14:31:00 EDT, Height/Length [...] shower Quantity: 1 Refills: 0 Ordered: 02-Jun-2021 petenicolas PAIGE Azucena Start : 02-Jun-2021 Active diclofenac sodium [...] surgery. 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 [address] [place] [address] [place] #### C4, C3, CH50 #### [facility] , Albumin [Mass/volume] in Ser um or Plasma by Bromocresol green (BCG) dye binding methoOrdered By: Sabrina Manriquez on 11-19-2023 Albumin BCG dye [Mass/Vol] 4.1 g/dL 3.5-5.7 [facility] Alkaline phosphatase [Enzyma tic activity/volume] in Serum or PlasmaOrdered By: Sabrina Manriquez on 11-19-2023 ALP [Catalytic activity/Vol] 70 U/L Normal 34-104 [facility] Comment on above: Performed By: #### A DDONUAPLUS, CBC, CMP, CRP, ESR #### [facility] [address] [place] [address] #### C4, C3, CH50 #### [facility] , Aspartate aminotransferase [ Enzymatic activity/volume] in Serum or PlasmaOrdered By: Sabrina Manriquez on 11-19-2023 AST [Catalytic activity/Vol] 29 U/L Normal 13-39 [facility] Comment on above: Performed By: #### A DDONUAPLUS, CBC, CMP, CRP, ESR #### [address] #### C4, C3, CH50 #### [facility] , Automated basophil %Ordered By: Sabrina Manriquez on 11-19-2023 Basophils/100 WBC (Bld) 0.7 % Normal . [facility] Comment on above: Performed By: #### C 4, C3, CH50 #### [facility] , #### CBC, CMP, ESR, ADDONUAPLUS, CRP #### [address] Automated basophil countOrde red By: Sabrina Manriquez on 11-19-2023 Basophils (Bld) [#/Vol] 0.0 10*3/uL Normal 0.0-0.2 [facility] Comment on above: Performed By: #### C 4, C3, CH50 #### [facility] , #### CBC, CMP, ESR, ADDONUAPLUS, CRP #### [address] Automated blood monocyte cou ntOrdered By: Sabrina Manriquez on 11-19-2023 Monocytes (Bld) [#/Vol] 0.5 10*3/uL Normal 0.0-0.8 [facility] Comment on above: Performed By: #### C 4, C3, CH50 #### [facility] , #### CBC, CMP, ESR, ADDONUAPLUS, CRP #### [address] Automated eosinophil %Ordere d By: Sabrina Manriquez on 11-19-2023 Eosinophils/100 WBC (Bld) 1.6 % Normal . [facility] Comment on above: Performed By: #### C 4, C3, CH50 #### [facility] , #### CBC, CMP, ESR, ADDONUAPLUS, CRP #### [address] Automated eosinophil countOr dered By: Sabrina Manriquez on 11-19-2023 Eosinophils (Bld) [#/Vol] 0.1 10*3/uL Normal 0.0-0.45 [facility] Comment on above: Performed By: #### C 4, C3, CH50 #### [facility] , #### CBC, CMP, ESR, ADDONUAPLUS, CRP #### [address] Automated epithelial cells c ount in urine sediment (number/area)Ordered By: Sabrina Manriquez on 11-19-2023 Epithelial cells Auto (Urine sed) [#/Area] None seen [HPF] 0-2 [facility] Automated monocyte %Ordered By: Sabrina Manriquez on 11-19-2023 Monocytes/100 WBC (Bld) 8.0 % Normal . [facility] Comment on above: Performed By: #### C 4, C3, CH50 #### [facility] , #### CBC, CMP, ESR, ADDONUAPLUS, CRP #### [address] Automated neutrophil %Ordere d By: Sabrina Manriquez on 11-19-2023 Neutrophils/100 WBC (Bld) 70.9 % Normal . [facility] Comment on above: Performed By: #### C 4, C3, CH50 #### [facility] , #### CBC, CMP, ESR, ADDONUAPLUS, CRP #### [facility] [address] [place] [address] Bacteria [Presence] in Urine by AutomatedOrdered By: Sabrina Manriquez on 11-19-2023 Bacteria Auto Ql (U) None seen [HPF] None Seen [facility] Bilirubin Test strip Ql (U)O rdered By: Sabrina Manriquez on 11-19-2023 Bilirubin Ql (U) Negative Negative [facility] Bilirubin.total [Mass/volume ] in Serum or PlasmaOrdered By: Sabrina Manriquez on 11-19-2023 Bilirubin [Mass/Vol] 0.5 mg/dL Normal 0.3-1.0 [facility] Comment on above: Performed By: #### A DDONUAPLUS, CBC, CMP, CRP, ESR #### [address] #### C4, C3, CH50 #### [facility] , C reactive protein [Mass/vol ume] in Serum or PlasmaOrdered By: Sabrina Manriquez on 11-19-2023 CRP [Mass/Vol] < 0.5 mg/dL 0.0-0.5 [facility] C-Reactive Proteinon 024 CRP [Mass/Vol] mg/L Normal 0.0-0.5 [facility] Comment on above: Result Comment: PERF ORMED BY: [place] [address] PATHOLOGIST SIGHT EFFECTS SPECIALIST KRISTIE BAKER M.D. Performed By: #### C 4, C3, CH50 #### [facility] , #### CBC, CMP, ESR, ADDONUAPLUS, CRP #### [facility] [address] [place] [address] Calcium [Mass/volume] in Ser um or PlasmaOrdered By: Sabrina Manriquez on 11-19-2023 Calcium [Mass/Vol] 9.1 mg/dL Normal 8.6-10.3 [facility] Comment on above: Performed By: #### A DDONUAPLUS, CBC, CMP, CRP, ESR #### [address] #### C4, C3, CH50 #### [facility] , Carbon dioxide, total [Moles /volume] in Serum or PlasmaOrdered By: Sabrina Manriquez on 11-19-2023 CO2 [Moles/Vol] 30.2 mmol/L Normal 21.0-31.0 [facility] Comment on above: Performed By: #### A DDONUAPLUS, CBC, CMP, CRP, ESR #### [address] #### C4, C3, CH50 #### [facility] , Chloride [Moles/volume] in S lenny or PlasmaOrdered By: Sabrina Manriquez on 11-19-2023 Chloride [Moles/Vol] 105 mmol/L Normal 98-107 [facility] Comment on above: Performed By: #### A DDONUAPLUS, CBC, CMP, CRP, ESR #### [place] [address] [place] #### C4, C3, CH50 #### [facility] , Color of Urine by AutoOrdere d By: Sabrina Manriquez on 11-19-2023 Color (U) Yellow Normal Yellow [facility] Comment on above: Order Comment: Name Collection Type:: Clean-Voided Midstream Performed By: #### A DDONUAPLUS, CBC, CMP, CRP, ESR #### [address] #### C4, C3, CH50 #### [facility] , Complement C3on 11-19-2023 Complement C3 129 mg/dL Normal 82-167 [facility] Comment on above: Result Comment: Perf ormed at: - [facility] [id number] Sewage Screen Operator: Derek Toscano PhD, Phone: [phone] Performed By: #### C 4, C3, CH50 #### [facility] , #### CBC, CMP, ESR, ADDONUAPLUS, CRP #### [address] Complement C4on 11-19-2023 Complement C4 20 mg/dL Normal 12-38 [facility] Comment on above: Result Comment: PERF ORMED BY: [place] [address] PATHOLOGIST SIGHT EFFECTS SPECIALIST KRISTIE BAKER M.D. Performed By: #### C 4, C3, CH50 #### [facility] , #### CBC, CMP, ESR, ADDONUAPLUS, CRP #### [address] Complement Total (CH50)on Complement Total (CH50) 48 Normal >41 [facility] Comment on above: Result Comment: [...] out of range values. Performed at: - [facility] [address] [place] [id number] Sewage Screen Operator: Derek Toscano PhD, Phone: [phone] PERFORMED BY: [place] [address] PATHOLOGIST SIGHT EFFECTS SPECIALIST KRISTIE BAKER M.D. Performed By: #### C 4, C3, CH50 #### [facility] , #### CBC, CMP, ESR, ADDONUAPLUS, CRP #### [address] Complete Blood Count Auto Di ffon 11-19-2023 Mean Corpuscular HGB Conc 34.0 g/dL Normal 32.5-35.6 [facility] Comment on above: Performed By: #### C 4, C3, CH50 #### [facility] , #### CBC, CMP, ESR, ADDONUAPLUS, CRP #### [address] NRBC% 0.1 /100{WBC} Normal 0-0.5 [facility] Comment on above: Performed By: #### C 4, C3, CH50 #### [facility] , #### CBC, CMP, ESR, ADDONUAPLUS, CRP #### [address] Comprehensive Metabolic Pane tanika 11-19-2023 Albumin [Mass/Vol] 4.1 g/dL Normal 3.5-5.7 [facility] Comment on above: Performed By: #### A DDONUAPLUS, CBC, CMP, CRP, ESR #### [address] #### C4, C3, CH50 #### [facility] , GFR/1.73 sq M.predicted MDRD (S/P/Bld) [Vol rate/Area] mL/min/{1.73_m2} Normal [facility] Comment on above: Performed By: #### A DDONUAPLUS, CBC, CMP, CRP, ESR #### [facility] [address] [place] [address] [place] #### C4, C3, CH50 #### [facility] , Creatinine [Mass/volume] in Serum or PlasmaOrdered By: Sabrina Manriquez on 11-19-2023 Creatinine [Mass/Vol] 0.97 mg/dL Normal 0.70-1.30 [facility] Comment on above: Performed By: #### A DDONUAPLUS, CBC, CMP, CRP, ESR #### [address] #### C4, C3, CH50 #### [facility] , Dipstick and Microscopicon 0 11-19-2023 Appearance (U) Clear Normal Clear [facility] Comment on above: Order Comment: Name Collection Type:: Clean-Voided Midstream Performed By: #### A DDONUAPLUS, CBC, CMP, CRP, ESR #### [address] #### C4, C3, CH50 #### [facility] , Bacteria,Urine None Seen Normal None Seen [facility] Comment on above: Order Comment: Name Collection Type:: Clean-Voided Midstream Performed By: #### A DDONUAPLUS, CBC, CMP, CRP, ESR #### [address] #### C4, C3, CH50 #### [facility] , Bilirubin,Urine Negative Normal Negative [facility] Comment on above: Order Comment: Name Collection Type:: Clean-Voided Midstream Performed By: #### A DDONUAPLUS, CBC, CMP, CRP, ESR #### [address] #### C4, C3, CH50 #### [facility] , Glucose Ql (U) Normal Normal Normal [facility] Comment on above: Order Comment: Name Collection Type:: Clean-Voided Midstream Performed By: #### A DDONUAPLUS, CBC, CMP, CRP, ESR #### [address] #### C4, C3, CH50 #### [facility] , Hyaline Casts,Urine None Seen Normal 0-8 [facility] Comment on above: Order Comment: Name Collection Type:: Clean-Voided Midstream Result Comment: PERF ORMED BY: [place] [address] PATHOLOGIST SIGHT EFFECTS SPECIALIST KRISTIE BAKER M.D. Performed By: #### A DDONUAPLUS, CBC, CMP, CRP, ESR #### [address] #### C4, C3, CH50 #### [facility] , Ketones Ql (U) Negative Normal Negative [facility] Comment on above: Order Comment: Name Collection Type:: Clean-Voided Midstream Performed By: #### A DDONUAPLUS, CBC, CMP, CRP, ESR #### [address] #### C4, C3, CH50 #### [facility] , Leukocyte esterase Test strip Ql (U) Negative Normal Negative [facility] Comment on above: Order Comment: Name Collection Type:: Clean-Voided Midstream Performed By: #### A DDONUAPLUS, CBC, CMP, CRP, ESR #### [address] #### C4, C3, CH50 #### [facility] , Nitrite,Urine Negative Normal Negative [facility] Comment on above: Order Comment: Name Collection Type:: Clean-Voided Midstream Performed By: #### A DDONUAPLUS, CBC, CMP, CRP, ESR #### [address] #### C4, C3, CH50 #### [facility] , Occult Blood,Urine Negative Normal Negative [facility] Comment on above: Order Comment: Name Collection Type:: Clean-Voided Midstream Performed By: #### A DDONUAPLUS, CBC, CMP, CRP, ESR #### [place] [address] [place] #### C4, C3, CH50 #### [facility] , Protein,Urine Negative Normal Negative [facility] Comment on above: Order Comment: Name Collection Type:: Clean-Voided Midstream Performed By: #### A DDONUAPLUS, CBC, CMP, CRP, ESR #### [address] #### C4, C3, CH50 #### [facility] , RBC LM.HPF (Urine sed) [#/Area] 0 /[HPF] Normal 0-4 [facility] Comment on above: Order Comment: Name Collection Type:: Clean-Voided Midstream Performed By: #### A DDONUAPLUS, CBC, CMP, CRP, ESR #### [address] #### C4, C3, CH50 #### [facility] , Specificy Hardy,Urine 1.021 Normal 1.001-1.03 0 [facility] Comment on above: Order Comment: Name Collection Type:: Clean-Voided Midstream Performed By: #### A DDONUAPLUS, CBC, CMP, CRP, ESR #### [address] #### C4, C3, CH50 #### [facility] , Squamous Epithelial Cell,Urine None Seen Normal 0-2 [facility] Comment on above: Order Comment: Name Collection Type:: Clean-Voided Midstream Performed By: #### A DDONUAPLUS, CBC, CMP, CRP, ESR #### [address] #### C4, C3, CH50 #### [facility] , Urobilinogen,Urine Normal Normal Normal [facility] Comment on above: Order Comment: Name Collection Type:: Clean-Voided Midstream Performed By: #### A DDONUAPLUS, CBC, CMP, CRP, ESR #### [address] #### C4, C3, CH50 #### [facility] , WBC LM.HPF (Urine sed) [#/Area] 0 /[HPF] Normal 0-4 [facility] Comment on above: Order Comment: Name Collection Type:: Clean-Voided Midstream Performed By: #### A DDONUAPLUS, CBC, CMP, CRP, ESR #### [address] #### C4, C3, CH50 #### [facility] , Erythrocyte Sedimentation Ra natan 11-19-2023 ESR (Bld) [Velocity] 5 mm/h Normal 0-19 [facility] Comment on above: Result Comment: PERF ORMED BY: [place] [address] PATHOLOGIST SIGHT EFFECTS SPECIALIST KRISTIE BAKER M.D. Performed By: #### C 4, C3, CH50 #### [facility] , #### CBC, CMP, ESR, ADDONUAPLUS, CRP #### [address] Erythrocyte distribution wid th [Ratio] by Automated countOrdered By: Sabrina Manriquez on 11-19-2023 Erythrocyte distribution width (RBC) [Ratio] 13.7 % Normal 12.0-14.8 [facility] Comment on above: Performed By: #### C 4, C3, CH50 #### [facility] , #### CBC, CMP, ESR, ADDONUAPLUS, CRP #### [address] Erythrocyte sedimentation ra te by Photometric methodOrdered By: Sabrina Manriquez on 11-19-2023 ESR Photometric method (Bld) [Velocity] 5 mm/hr 0-19 [facility] Erythrocytes [#/area] in Uri ne sediment by Automated countOrdered By: Sabrina Manriquez on 11-19-2023 RBC Auto (Urine sed) [#/Area] 0-1 [HPF] 0-4 [facility] Erythrocytes [#/volume] in B lood by Automated countOrdered By: Sabrina Manriquez on 11-19-2023 RBC (Bld) [#/Vol] 4.64 10*6/uL Normal 3.90-5.60 [facility] Comment on above: Performed By: #### C 4, C3, CH50 #### [facility] , #### CBC, CMP, ESR, ADDONUAPLUS, CRP #### [address] Glucose [Mass/volume] in Ser um or PlasmaOrdered By: Sabrina Manriquez on 11-19-2023 Glucose [Mass/Vol] 115 mg/dL High 70-100 [facility] Comment on above: ADA recommended refe rence rangeRandom Glucose Reference Range is dependent on time and content of last meal. Glucose of more than 200 mg/dL in a nonstressed, ambulatory subject supports the diagnosis of Diabetes Mellitus. Result Comment: [place] om Glucose Reference Range is dependent on time and content of last meal. Glucose of more than 200 mg/dL in a nonstressed, ambulatory subject supports the diagnosis of Diabetes Mellitus. ADA recommended reference range Performed By: #### A DDONUAPLUS, CBC, CMP, CRP, ESR #### [address] #### C4, C3, CH50 #### [facility] , Hematocrit [Volume Fraction] of Blood by Automated countOrdered By: Sabrina Manriquez on 11-19-2023 Hematocrit (Bld) [Volume fraction] 44.2 % Normal 38.8-50.0 [facility] Comment on above: Performed By: #### C 4, C3, CH50 #### [facility] , #### CBC, CMP, ESR, ADDONUAPLUS, CRP #### [address] Hemoglobin [Mass/volume] in BloodOrdered By: Sabrina Manriquez on 11-19-2023 Hemoglobin (Bld) [Mass/Vol] 15.0 g/dL Normal 13.0-17.0 [facility] Comment on above: Performed By: #### C 4, C3, CH50 #### [facility] , #### CBC, CMP, ESR, ADDONUAPLUS, CRP #### [facility] [address] [place] [address] Ketones Auto test strip (U) [Mass/Vol]Ordered By: Sabrina Manriquez on 11-19-2023 Ketones (U) [Mass/Vol] Negative Negative [facility] - UrinalysisOrder ed By: Sabrina Manriquez on 11-19-2023 Hyaline casts LM Ql (Urine sed) None seen [LPF] 0-8 [facility] Leukocytes [#/area] in Urine sediment by Automated countOrdered By: Sabrina Manriquez on 11-19-2023 WBC Auto (Urine sed) [#/Area] 0-1 [HPF] 0-4 [facility] Leukocytes [#/volume] correc leah for nucleated erythrocytes in Blood by Automated counOrdered By: Sabrina Manriquez on 11-19-2023 WBC corrected for nucl RBC Auto (Bld) [#/Vol] 5.7 10*3/uL 4.1-10.5 [facility] Leukocytes [#/volume] in Blo od by Automated countOrdered By: Sabrina Manriquez on 11-19-2023 WBC (Bld) [#/Vol] 5.7 10*3/uL Normal 4.1-10.5 [facility] Comment on above: Performed By: #### C 4, C3, CH50 #### [facility] , #### CBC, CMP, ESR, ADDONUAPLUS, CRP #### [facility] [address] [place] [address] Lymphocytes [#/volume] in Bl ood by Automated countOrdered By: Sabrina Manriquez on 11-19-2023 Lymphocytes (Bld) [#/Vol] 1.1 10*3/uL Normal 1.00-4.8 [facility] Comment on above: Performed By: #### C 4, C3, CH50 #### [facility] , #### CBC, CMP, ESR, ADDONUAPLUS, CRP #### [address] Lymphocytes/100 leukocytes i n Blood by Automated countOrdered By: Sabrina Manriquez on 11-19-2023 Lymphocytes/100 WBC (Bld) 18.8 % Normal . [facility] Comment on above: Performed By: #### C 4, C3, CH50 #### [facility] , #### CBC, CMP, ESR, ADDONUAPLUS, CRP #### [address] MCH [Entitic mass] by Automa leah countOrdered By: Sabrina Manriquez on 11-19-2023 MCH (RBC) [Entitic mass] 32.3 pg Normal 27.5-35.2 [facility] Comment on above: Performed By: #### C 4, C3, CH50 #### [facility] , #### CBC, CMP, ESR, ADDONUAPLUS, CRP #### [address] MCHC Auto (RBC) [Mass/Vol]Or dered By: Sabrina Manriquez on 11-19-2023 MCHC (RBC) [Mass/Vol] 34.0 g/dL 32.5-35.6 [facility] MCV [Entitic volume] by Auto mated countOrdered By: Sabrina Manriquez on 11-19-2023 MCV (RBC) [Entitic vol] 95.2 fL Normal 83.5-101 [facility] Comment on above: Performed By: #### C 4, C3, CH50 #### [facility] , #### CBC, CMP, ESR, ADDONUAPLUS, CRP #### [address] Neutrophils [#/volume] in Bl ood by Automated countOrdered By: Sabrina Manriquez on 11-19-2023 Neutrophils (Bld) [#/Vol] 4.1 10*3/uL Normal 1.8-7.7 [facility] Comment on above: Performed By: #### C 4, C3, CH50 #### [facility] , #### CBC, CMP, ESR, ADDONUAPLUS, CRP #### [facility] [address] Nitrite Test strip Ql (U)Ord ered By: Sabrina Manriquez on 11-19-2023 Nitrite Ql (U) Negative Negative [facility] No Panel InformationOrdered By: Sabrina Manriquez on 11-19-2023 Estimated GFR (CKD-EPI) > 60.0 mL/Min [facility] Creatinine Clearance (Chem N/A [facility] Nucleated erythrocytes [Pres ence] in Blood by Automated countOrdered By: Sabrina Manriquez on 11-19-2023 Nucleated RBC Auto Ql (Bld) 0.1 /100{WBC} 0-0.5 [facility] Platelet mean volume [Entiti c volume] in Blood by Automated countOrdered By: Sabrina Manriquez on 11-19-2023 Platelet mean volume (Bld) [Entitic vol] 9.3 fL Normal 6.6-10.1 [facility] Comment on above: Performed By: #### C 4, C3, CH50 #### [facility] , #### CBC, CMP, ESR, ADDONUAPLUS, CRP #### [place] [address] [place] Platelets [#/volume] in Bloo d by Automated countOrdered By: Sabrina Manriquez on 11-19-2023 Platelets (Bld) [#/Vol] 220 10*3/uL Normal 150-450 [facility] Comment on above: Performed By: #### C 4, C3, CH50 #### [facility] , #### CBC, CMP, ESR, ADDONUAPLUS, CRP #### [address] Potassium [Moles/volume] in Serum or PlasmaOrdered By: Sabrina Manriquez on 11-19-2023 Potassium [Moles/Vol] 4.4 mmol/L Normal 3.5-5.1 [facility] Comment on above: Performed By: #### A DDONUAPLUS, CBC, CMP, CRP, ESR #### [facility] [address] [place] [address] [place] #### C4, C3, CH50 #### [facility] , Protein Auto test strip (U) [Mass/Vol]Ordered By: Sabrina Manriquez on 11-19-2023 Protein (U) [Mass/Vol] Negative Negative [facility] Protein [Mass/volume] in Ser um or PlasmaOrdered By: Sabrina Manriquez on 11-19-2023 Protein [Mass/Vol] 6.7 g/dL Normal 6.4-8.9 [facility] Comment on above: Performed By: #### A DDONUAPLUS, CBC, CMP, CRP, ESR #### [address] #### C4, C3, CH50 #### [facility] , Serum globulin measurement b y calculation (mass/volume)Ordered By: Sabrina Manriquez on 11-19-2023 Globulin (S) [Mass/Vol] 2.6 g/dL [facility] Comment on above: Performed By: #### A DDONUAPLUS, CBC, CMP, CRP, ESR #### [place] [address] [place] #### C4, C3, CH50 #### [facility] , Serum or plasma albumin/glob ulin mass ratioOrdered By: Sabrina Manriquez on 11-19-2023 Albumin/Globulin [Mass ratio] 1.6 {ratio} [facility] Comment on above: Performed By: #### A DDONUAPLUS, CBC, CMP, CRP, ESR #### [address] #### C4, C3, CH50 #### [facility] , Serum or plasma anion gap de terminationOrdered By: Sabrina Manriquez on 11-19-2023 Anion gap [Moles/Vol] 9.2 mmol/L Normal 6.0-15.0 [facility] Comment on above: Performed By: #### A DDONUAPLUS, CBC, CMP, CRP, ESR #### [place] [address] [place] #### C4, C3, CH50 #### [facility] , Sodium [Moles/volume] in Ser um or PlasmaOrdered By: Sabrina Manriquez on 11-19-2023 Sodium [Moles/Vol] 140 mmol/L Normal 136-145 [facility] Comment on above: Performed By: #### A DDONUAPLUS, CBC, CMP, CRP, ESR #### [place] [address] [place] #### C4, C3, CH50 #### [facility] , Specific gravity Auto test s trip (U) [Rel density]Ordered By: Sabrina Manriquez on 11-19-2023 Specific gravity (U) [Rel density] 1.021 1.001-1.03 0 [facility] Urea nitrogen [Mass/volume] in Serum or PlasmaOrdered By: Sabrina Manriquez on 11-19-2023 Urea nitrogen [Mass/Vol] 17 mg/dL Normal 7-25 [facility] Comment on above: Performed By: #### A DDONUAPLUS, CBC, CMP, CRP, ESR #### [place] [address] [place] #### C4, C3, CH50 #### [facility] , Urine clarity by refractomet ry automatedOrdered By: Sabrina Manriquez on 11-19-2023 Clarity Refractometry automated (U) Clear Clear [facility] Urine glucose measurement by automated test strip (mass/volume)Ordered By: Sabrina Manriquez on 11-19-2023 Glucose Auto test strip (U) [Mass/Vol] Normal mg/dL Normal [facility] Urine hemoglobin detection b y automated test stripOrdered By: Sabrina Manriquez on 11-19-2023 Hemoglobin Auto test strip Ql (U) Negative Negative [facility] Urine leukocyte esterase det ection by automated test stripOrdered By: Sabrina Manriquez on 11-19-2023 Leukocyte esterase Auto test strip Ql (U) Negative Negative [facility] Urine pH measurement by auto mated test stripOrdered By: Sabrina Manriquez on 11-19-2023 pH (U) 5.5 [pH] Normal 5.0-9.0 [facility] Comment on above: Order Comment: Name Collection Type:: Clean-Voided Midstream Performed By: #### A DDONUAPLUS, CBC, CMP, CRP, ESR #### [facility] [address] [place] [address] [place] #### C4, C3, CH50 #### [facility] , Urobilinogen Auto test strip (U) [Mass/Vol]Ordered By: Sabrina Manriquez on 11-19-2023 Urobilinogen (U) [Mass/Vol] Normal mg/dL Normal [facility] Alanine aminotransferase [En zymatic activity/volume] in Serum or PlasmaOrdered By: Sabrina Manriquez on 07-18-2023 ALT [Catalytic activity/Vol] 32 U/L Normal 7-52 [facility] Comment on above: Performed By: #### C 4, C3, CH50 #### [facility] , #### CBC, CMP, ESR, ADDONUAPLUS, CRP #### [facility] [address] Albumin [Mass/volume] in Ser um or Plasma by Bromocresol green (BCG) dye binding methoOrdered By: aSbrina Manriquez on 07-18-2023 Albumin BCG dye [Mass/Vol] 4.3 g/dL 3.5-5.7 [facility] Alkaline phosphatase [Enzyma tic activity/volume] in Serum or PlasmaOrdered By: Sabrina Manriquez on 07-18-2023 ALP [Catalytic activity/Vol] 78 U/L Normal 34-104 [facility] Comment on above: Performed By: #### C 4, C3, CH50 #### [facility] , #### CBC, CMP, ESR, ADDONUAPLUS, CRP #### [facility] [address] [place] [address] Aspartate aminotransferase [ Enzymatic activity/volume] in Serum or PlasmaOrdered By: Sabrina Manriquez on 07-18-2023 AST [Catalytic activity/Vol] 28 U/L Normal 13-39 [facility] Comment on above: Performed By: #### C 4, C3, CH50 #### [facility] , #### CBC, CMP, ESR, ADDONUAPLUS, CRP #### [facility] [address] [place] [address] Automated basophil %Ordered By: Sabrina Manriquez on 07-18-2023 Basophils/100 WBC (Bld) 0.8 % Normal . [facility] Comment on above: Performed By: #### C 4, C3, CH50 #### [facility] , #### CBC, CMP, ESR, ADDONUAPLUS, CRP #### [facility] [address] [place] [address] Automated basophil countOrde red By: Sabrina Manriquez on 07-18-2023 Basophils (Bld) [#/Vol] 0.1 10*3/uL Normal 0.0-0.2 [facility] Comment on above: Performed By: #### C 4, C3, CH50 #### [facility] , #### CBC, CMP, ESR, ADDONUAPLUS, CRP #### [facility] [address] [place] [address] Automated blood monocyte cou ntOrdered By: Sabrina Manriquez on 07-18-2023 Monocytes (Bld) [#/Vol] 0.6 10*3/uL Normal 0.0-0.8 [facility] Comment on above: Performed By: #### C 4, C3, CH50 #### [facility] , #### CBC, CMP, ESR, ADDONUAPLUS, CRP #### [address] Automated eosinophil %Ordere d By: Sabrina Manriquez on 07-18-2023 Eosinophils/100 WBC (Bld) 0.7 % Normal . [facility] Comment on above: Performed By: #### C 4, C3, CH50 #### [facility] , #### CBC, CMP, ESR, ADDONUAPLUS, CRP #### [address] Automated eosinophil countOr dered By: Sabrina Manriquez on 07-18-2023 Eosinophils (Bld) [#/Vol] 0.0 10*3/uL Normal 0.0-0.45 [facility] Comment on above: Performed By: #### C 4, C3, CH50 #### [facility] , #### CBC, CMP, ESR, ADDONUAPLUS, CRP #### [facility] [address] [place] [address] Automated erythrocytes count in urine sediment (number/area)Ordered By: Sabrina Manriquez on 07-18-2023 RBC Auto (Urine sed) [#/Area] 0-1 [HPF] 0-4 [facility] Automated leukocytes count i n urine sediment (number/area)Ordered By: Sabrina Manriquez on 07-18-2023 WBC Auto (Urine sed) [#/Area] 0-1 [HPF] 0-4 [facility] Automated monocyte %Ordered By: Sabrina Manriquez on 07-18-2023 Monocytes/100 WBC (Bld) 8.9 % Normal . [facility] Comment on above: Performed By: #### C 4, C3, CH50 #### [facility] , #### CBC, CMP, ESR, ADDONUAPLUS, CRP #### [facility] [address] Automated neutrophil %Ordere d By: Sabrina Manriquez on 07-18-2023 Neutrophils/100 WBC (Bld) 74.5 % Normal . [facility] Comment on above: Performed By: #### C 4, C3, CH50 #### [facility] , #### CBC, CMP, ESR, ADDONUAPLUS, CRP #### [facility] [address] [place] [address] Automated urine color determ inationOrdered By: Sabrina Manriquez on 07-18-2023 Color (U) Yellow Normal Yellow [facility] Comment on above: Order Comment: Name Collection Type:: Clean-Voided Midstream Performed By: #### C 4, C3, CH50 #### [facility] , #### CBC, CMP, ESR, ADDONUAPLUS, CRP #### [facility] [address] [place] [address] Bilirubin Test strip Ql (U)O rdered By: Sabrina Manriquez on 07-18-2023 Bilirubin Ql (U) Negative Negative [facility] Bilirubin.total [Mass/volume ] in Serum or PlasmaOrdered By: Sabrina Manriquez on 07-18-2023 Bilirubin [Mass/Vol] 0.5 mg/dL Normal 0.3-1.0 [facility] Comment on above: Performed By: #### C 4, C3, CH50 #### [facility] , #### CBC, CMP, ESR, ADDONUAPLUS, CRP #### [facility] [address] [place] [address] [place] C reactive protein [Mass/vol ume] in Serum or PlasmaOrdered By: Sabrina Manriquez on 07-18-2023 CRP [Mass/Vol] < 0.5 mg/dL 0.0-0.5 [facility] C-Reactive Proteinon CRP [Mass/Vol] mg/L Normal 0.0-0.5 [facility] Comment on above: Result Comment: PERF ORMED BY: [place] [address] PATHOLOGIST SIGHT EFFECTS SPECIALIST KRISTIE BAKER M.D. Performed By: #### C 4, C3, CH50 #### [facility] , #### CBC, CMP, ESR, ADDONUAPLUS, CRP #### [place] [address] [place] Calcium [Mass/volume] in Ser um or PlasmaOrdered By: Sabrina Manriquez on 07-18-2023 Calcium [Mass/Vol] 9.2 mg/dL Normal 8.6-10.3 [facility] Comment on above: Performed By: #### C 4, C3, CH50 #### [facility] , #### CBC, CMP, ESR, ADDONUAPLUS, CRP #### [address] Carbon dioxide, total [Moles /volume] in Serum or PlasmaOrdered By: Sabrina Manriquez on 07-18-2023 CO2 [Moles/Vol] 30.1 mmol/L Normal 21.0-31.0 [facility] Comment on above: Performed By: #### C 4, C3, CH50 #### [facility] , #### CBC, CMP, ESR, ADDONUAPLUS, CRP #### [place] [address] [place] Chloride [Moles/volume] in S lenny or PlasmaOrdered By: Sabrina Manriquez on 07-18-2023 Chloride [Moles/Vol] 105 mmol/L Normal 98-107 [facility] Comment on above: Performed By: #### C 4, C3, CH50 #### [facility] , #### CBC, CMP, ESR, ADDONUAPLUS, CRP #### [place] [address] [place] Complement C3on 07-18-2023 Complement C3 118 mg/dL Normal 82-167 [facility] Comment on above: Result Comment: Perf ormed at: [facility] [id number] Sewage Screen Operator: Derek Toscano PhD, Phone: [phone] Performed By: #### C 4, C3, CH50 #### [facility] , #### CBC, CMP, ESR, ADDONUAPLUS, CRP #### [address] Complement C4on 07-18-2023 Complement C4 23 mg/dL Normal 12-38 [facility] Comment on above: Result Comment: PERF ORMED BY: [place] [address] PATHOLOGIST SIGHT EFFECTS SPECIALIST KRISTIE BAKER M.D. Performed By: #### C 4, C3, CH50 #### [facility] , #### CBC, CMP, ESR, ADDONUAPLUS, CRP #### [address] Complement Total (CH50)on Complement Total (CH50) 51 Normal >41 [facility] Comment on above: Result Comment: [...] determine out of range values. Performed at: [facility] [address] [id number] Sewage Screen Operator: Derek Toscano PhD, Phone: [phone] PERFORMED BY: [place] [address] PATHOLOGIST SIGHT EFFECTS SPECIALIST KRISTIE BAKER M.D. Performed By: #### C 4, C3, CH50 #### [facility] , #### CBC, CMP, ESR, ADDONUAPLUS, CRP #### [address] Complete Blood Count Auto Di ffon 07-18-2023 Mean Corpuscular HGB Conc 34.2 g/dL Normal 32.5-35.6 [facility] Comment on above: Performed By: #### C 4, C3, CH50 #### [facility] , #### CBC, CMP, ESR, ADDONUAPLUS, CRP #### [address] NRBC% 0.1 /100{WBC} Normal 0-0.5 [facility] Comment on above: Performed By: #### C 4, C3, CH50 #### [facility] , #### CBC, CMP, ESR, ADDONUAPLUS, CRP #### [address] Comprehensive Metabolic Pane tanika 07-18-2023 Albumin [Mass/Vol] 4.3 g/dL Normal 3.5-5.7 [facility] Comment on above: Performed By: #### C 4, C3, CH50 #### [facility] , #### CBC, CMP, ESR, ADDONUAPLUS, CRP #### [address] GFR/1.73 sq M.predicted MDRD (S/P/Bld) [Vol rate/Area] mL/min/{1.73_m2} Normal [facility] Comment on above: Performed By: #### C 4, C3, CH50 #### [facility] , #### CBC, CMP, ESR, ADDONUAPLUS, CRP #### [address] Creatinine [Mass/volume] in Serum or PlasmaOrdered By: Sabrina Manriquez on 07-18-2023 Creatinine [Mass/Vol] 0.93 mg/dL Normal 0.70-1.30 [facility] Comment on above: Performed By: #### C 4, C3, CH50 #### [facility] , #### CBC, CMP, ESR, ADDONUAPLUS, CRP #### [address] Dipstick and Microscopicon 0 07-18-2023 Appearance (U) Clear Normal Clear [facility] Comment on above: Order Comment: Name Collection Type:: Clean-Voided Midstream Performed By: #### C 4, C3, CH50 #### [facility] , #### CBC, CMP, ESR, ADDONUAPLUS, CRP #### [address] Bacteria,Urine None Seen Normal None Seen [facility] Comment on above: Order Comment: Name Collection Type:: Clean-Voided Midstream Performed By: #### C 4, C3, CH50 #### [facility] , #### CBC, CMP, ESR, ADDONUAPLUS, CRP #### [address] Bilirubin,Urine Negative Normal Negative [facility] Comment on above: Order Comment: Name Collection Type:: Clean-Voided Midstream Performed By: #### C 4, C3, CH50 #### [facility] , #### CBC, CMP, ESR, ADDONUAPLUS, CRP #### [address] Glucose Ql (U) Normal Normal Normal [facility] Comment on above: Order Comment: Name Collection Type:: Clean-Voided Midstream Performed By: #### C 4, C3, CH50 #### [facility] , #### CBC, CMP, ESR, ADDONUAPLUS, CRP #### [address] Hyaline Casts,Urine None Seen Normal 0-8 [facility] Comment on above: Order Comment: Name Collection Type:: Clean-Voided Midstream Result Comment: PERF ORMED BY: [place] [address] PATHOLOGIST SIGHT EFFECTS SPECIALIST KRISTIE BAKER M.D. Performed By: #### C 4, C3, CH50 #### [facility] , #### CBC, CMP, ESR, ADDONUAPLUS, CRP #### [address] Ketones Ql (U) Trace High Negative [facility] Comment on above: Order Comment: Name Collection Type:: Clean-Voided Midstream Performed By: #### C 4, C3, CH50 #### [facility] , #### CBC, CMP, ESR, ADDONUAPLUS, CRP #### [address] Leukocyte esterase Test strip Ql (U) Negative Normal Negative [facility] Comment on above: Order Comment: Name Collection Type:: Clean-Voided Midstream Performed By: #### C 4, C3, CH50 #### [facility] , #### CBC, CMP, ESR, ADDONUAPLUS, CRP #### [place] [address] [place] Nitrite,Urine Negative Normal Negative [facility] Comment on above: Order Comment: Name Collection Type:: Clean-Voided Midstream Performed By: #### C 4, C3, CH50 #### [facility] , #### CBC, CMP, ESR, ADDONUAPLUS, CRP #### [address] Occult Blood,Urine Negative Normal Negative [facility] Comment on above: Order Comment: Name Collection Type:: Clean-Voided Midstream Performed By: #### C 4, C3, CH50 #### [facility] , #### CBC, CMP, ESR, ADDONUAPLUS, CRP #### [place] [address] [place] Protein,Urine Negative Normal Negative [facility] Comment on above: Order Comment: Name Collection Type:: Clean-Voided Midstream Performed By: #### C 4, C3, CH50 #### [facility] , #### CBC, CMP, ESR, ADDONUAPLUS, CRP #### [address] RBC LM.HPF (Urine sed) [#/Area] 0 /[HPF] Normal 0-4 [facility] Comment on above: Order Comment: Name Collection Type:: Clean-Voided Midstream Performed By: #### C 4, C3, CH50 #### [facility] , #### CBC, CMP, ESR, ADDONUAPLUS, CRP #### [address] Specificy Hardy,Urine 1.023 Normal 1.001-1.03 0 [facility] Comment on above: Order Comment: Name Collection Type:: Clean-Voided Midstream Performed By: #### C 4, C3, CH50 #### [facility] , #### CBC, CMP, ESR, ADDONUAPLUS, CRP #### [address] Squamous Epithelial Cell,Urine None Seen Normal 0-2 [facility] Comment on above: Order Comment: Name Collection Type:: Clean-Voided Midstream Performed By: #### C 4, C3, CH50 #### [facility] , #### CBC, CMP, ESR, ADDONUAPLUS, CRP #### [place] [address] [place] Urobilinogen,Urine Normal Normal Normal [facility] Comment on above: Order Comment: Name Collection Type:: Clean-Voided Midstream Performed By: #### C 4, C3, CH50 #### [facility] , #### CBC, CMP, ESR, ADDONUAPLUS, CRP #### [address] WBC LM.HPF (Urine sed) [#/Area] 0 /[HPF] Normal 0-4 [facility] Comment on above: Order Comment: Name Collection Type:: Clean-Voided Midstream Performed By: #### C 4, C3, CH50 #### [facility] , #### CBC, CMP, ESR, ADDONUAPLUS, CRP #### [address] Erythrocyte Sedimentation Ra natan 07-18-2023 ESR (Bld) [Velocity] 7 mm/h Normal 0-19 [facility] Comment on above: Result Comment: PERF ORMED BY: [place] [address] PATHOLOGIST SIGHT EFFECTS SPECIALIST KRISTIE BAKER M.D. Performed By: #### C 4, C3, CH50 #### [facility] , #### CBC, CMP, ESR, ADDONUAPLUS, CRP #### [address] Erythrocyte distribution wid th [Ratio] by Automated countOrdered By: Sabrina Manriquez on 07-18-2023 Erythrocyte distribution width (RBC) [Ratio] 13.9 % Normal 12.0-14.8 [facility] Comment on above: Performed By: #### C 4, C3, CH50 #### [facility] , #### CBC, CMP, ESR, ADDONUAPLUS, CRP #### [address] Erythrocyte sedimentation ra te by Photometric methodOrdered By: Sabrina Manriquez on 07-18-2023 ESR Photometric method (Bld) [Velocity] 7 mm/hr 0-19 [facility] Erythrocytes [#/volume] in B lood by Automated countOrdered By: Sabrina Manriquez on 07-18-2023 RBC (Bld) [#/Vol] 4.69 10*6/uL Normal 3.90-5.60 [facility] Comment on above: Performed By: #### C 4, C3, CH50 #### [facility] , #### CBC, CMP, ESR, ADDONUAPLUS, CRP #### [facility] [address] [place] [address] [place] Glucose [Mass/volume] in Ser um or PlasmaOrdered By: Sabrina Manriquez on 07-18-2023 Glucose [Mass/Vol] 89 mg/dL Normal 70-100 [facility] Comment on above: ADA recommended refe rence rangeRandom Glucose Reference Range is dependent on time and content of last meal. Glucose of more than 200 mg/dL in a nonstressed, ambulatory subject supports the diagnosis of Diabetes Mellitus. Result Comment: [place] om Glucose Reference Range is dependent on time and content of last meal. Glucose of more than 200 mg/dL in a nonstressed, ambulatory subject supports the diagnosis of Diabetes Mellitus. ADA recommended reference range Performed By: #### C 4, C3, CH50 #### [facility] , #### CBC, CMP, ESR, ADDONUAPLUS, CRP #### [place] [address] [place] Hematocrit [Volume Fraction] of Blood by Automated countOrdered By: Sabrina Manriquez on 07-18-2023 Hematocrit (Bld) [Volume fraction] 44.3 % Normal 38.8-50.0 [facility] Comment on above: Performed By: #### C 4, C3, CH50 #### [facility] , #### CBC, CMP, ESR, ADDONUAPLUS, CRP #### [facility] [address] [place] [address] [place] Hemoglobin [Mass/volume] in BloodOrdered By: Sabrina Manriquez on 07-18-2023 Hemoglobin (Bld) [Mass/Vol] 15.2 g/dL Normal 13.0-17.0 [facility] Comment on above: Performed By: #### C 4, C3, CH50 #### [facility] , #### CBC, CMP, ESR, ADDONUAPLUS, CRP #### [facility] [address] Ketones Auto test strip (U) [Mass/Vol]Ordered By: Sabrina Manriquez on 07-18-2023 Ketones (U) [Mass/Vol] Trace Negative [facility] - UrinalysisOrder ed By: Sabrina Manriquez on 07-18-2023 Hyaline casts LM Ql (Urine sed) None seen [LPF] 0-8 [facility] Leukocytes [#/volume] correc leah for nucleated erythrocytes in Blood by Automated counOrdered By: Sabrina Manriquez on 07-18-2023 WBC corrected for nucl RBC Auto (Bld) [#/Vol] 6.3 10*3/uL 4.1-10.5 [facility] Leukocytes [#/volume] in Blo od by Automated countOrdered By: Sabrina Manriquez on 07-18-2023 WBC (Bld) [#/Vol] 6.3 10*3/uL Normal 4.1-10.5 [facility] Comment on above: Performed By: #### C 4, C3, CH50 #### [facility] , #### CBC, CMP, ESR, ADDONUAPLUS, CRP #### [facility] [address] [place] [address] Lymphocytes [#/volume] in Bl ood by Automated countOrdered By: Sabrina Manriquez on 07-18-2023 Lymphocytes (Bld) [#/Vol] 0.9 10*3/uL Low 1.00-4.8 [facility] Comment on above: Performed By: #### C 4, C3, CH50 #### [facility] , #### CBC, CMP, ESR, ADDONUAPLUS, CRP #### [facility] [address] [place] [address] [place] Lymphocytes/100 leukocytes i n Blood by Automated countOrdered By: Sabrina Manriquez on 07-18-2023 Lymphocytes/100 WBC (Bld) 15.1 % Normal . [facility] Comment on above: Performed By: #### C 4, C3, CH50 #### [facility] , #### CBC, CMP, ESR, ADDONUAPLUS, CRP #### [address] MCH [Entitic mass] by Automa leah countOrdered By: Sabrina Manriquez on 07-18-2023 MCH (RBC) [Entitic mass] 32.3 pg Normal 27.5-35.2 [facility] Comment on above: Performed By: #### C 4, C3, CH50 #### [facility] , #### CBC, CMP, ESR, ADDONUAPLUS, CRP #### [address] [address] MCHC Auto (RBC) [Mass/Vol]Or dered By: Sabrina Manriquez on 07-18-2023 MCHC (RBC) [Mass/Vol] 34.2 g/dL 32.5-35.6 [facility] MCV [Entitic volume] by Auto mated countOrdered By: Sabrina Manriquez on 07-18-2023 MCV (RBC) [Entitic vol] 94.4 fL Normal 83.5-101 [facility] Comment on above: Performed By: #### C 4, C3, CH50 #### [facility] , #### CBC, CMP, ESR, ADDONUAPLUS, CRP #### [address] Neutrophils [#/volume] in Bl ood by Automated countOrdered By: Sabrina Manriquez on 07-18-2023 Neutrophils (Bld) [#/Vol] 4.7 10*3/uL Normal 1.8-7.7 [facility] Comment on above: Performed By: #### C 4, C3, CH50 #### [facility] , #### CBC, CMP, ESR, ADDONUAPLUS, CRP #### [address] Nitrite Test strip Ql (U)Ord ered By: Sabrina Manriquez on 07-18-2023 Nitrite Ql (U) Negative Negative [facility] No Panel InformationOrdered By: Sabrina Manriquez on 07-18-2023 Estimated GFR (CKD-EPI) > 60.0 mL/Min [facility] Creatinine Clearance (Chem N/A [facility] Nucleated erythrocytes [Pres ence] in Blood by Automated countOrdered By: Sabrina Manriquez on 07-18-2023 Nucleated RBC Auto Ql (Bld) 0.1 /100{WBC} 0-0.5 [facility] Platelet mean volume [Entiti c volume] in Blood by Automated countOrdered By: Sabrina Manriquez on 07-18-2023 Platelet mean volume (Bld) [Entitic vol] 8.8 fL Normal 6.6-10.1 [facility] Comment on above: Performed By: #### C 4, C3, CH50 #### [facility] , #### CBC, CMP, ESR, ADDONUAPLUS, CRP #### [facility] [address] Platelets [#/volume] in Bloo d by Automated countOrdered By: Sabrina Manriquez on 07-18-2023 Platelets (Bld) [#/Vol] 235 10*3/uL Normal 150-450 [facility] Comment on above: Performed By: #### C 4, C3, CH50 #### [facility] , #### CBC, CMP, ESR, ADDONUAPLUS, CRP #### [facility] [address] [place] [address] [place] Potassium [Moles/volume] in Serum or PlasmaOrdered By: Sabrina Manriquez on 07-18-2023 Potassium [Moles/Vol] 4.1 mmol/L Normal 3.5-5.1 [facility] Comment on above: Performed By: #### C 4, C3, CH50 #### [facility] , #### CBC, CMP, ESR, ADDONUAPLUS, CRP #### [facility] [address] [place] [address] Protein Auto test strip (U) [Mass/Vol]Ordered By: Sabrina Manriquez on 07-18-2023 Protein (U) [Mass/Vol] Negative Negative [facility] Protein [Mass/volume] in Ser um or PlasmaOrdered By: Sabrina Manriquez on 07-18-2023 Protein [Mass/Vol] 6.8 g/dL Normal 6.4-8.9 [facility] Comment on above: Performed By: #### C 4, C3, CH50 #### [facility] , #### CBC, CMP, ESR, ADDONUAPLUS, CRP #### [address] Serum globulin measurement b y calculation (mass/volume)Ordered By: Sabrina Manriquez on 07-18-2023 Globulin (S) [Mass/Vol] 2.5 g/dL [facility] Comment on above: Performed By: #### C 4, C3, CH50 #### [facility] , #### CBC, CMP, ESR, ADDONUAPLUS, CRP #### [address] Serum or plasma albumin/glob ulin mass ratioOrdered By: Sabrina Manriquez on 07-18-2023 Albumin/Globulin [Mass ratio] 1.7 {ratio} [facility] Comment on above: Performed By: #### C 4, C3, CH50 #### [facility] , #### CBC, CMP, ESR, ADDONUAPLUS, CRP #### [facility] [address] [place] [address] Serum or plasma anion gap de terminationOrdered By: Sabrina Manriquez on 07-18-2023 Anion gap [Moles/Vol] 9.0 mmol/L Normal 6.0-15.0 [facility] Comment on above: Performed By: #### C 4, C3, CH50 #### [facility] , #### CBC, CMP, ESR, ADDONUAPLUS, CRP #### [facility] [address] [place] [address] [place] Sodium [Moles/volume] in Ser um or PlasmaOrdered By: Sabrina Manriquez on 07-18-2023 Sodium [Moles/Vol] 140 mmol/L Normal 136-145 [facility] Comment on above: Performed By: #### C 4, C3, CH50 #### [facility] , #### CBC, CMP, ESR, ADDONUAPLUS, CRP #### [facility] [address] [place] [address] Specific gravity Auto test s trip (U) [Rel density]Ordered By: Sabrina Manriquez on 07-18-2023 Specific gravity (U) [Rel density] 1.023 1.001-1.03 0 [facility] Squamous epithelial cells de tection in urine sediment by light microscopyOrdered By: Sabrina Manriquez on 07-18-2023 Epithelial cells.squamous LM Ql (Urine sed) None seen [HPF] 0-2 [facility] Urea nitrogen [Mass/volume] in Serum or PlasmaOrdered By: Sabrina Manriquez on 07-18-2023 Urea nitrogen [Mass/Vol] 22 mg/dL Normal 7-25 [facility] Comment on above: Performed By: #### C 4, C3, CH50 #### [facility] , #### CBC, CMP, ESR, ADDONUAPLUS, CRP #### [facility] [address] [place] [address] Urine bacteria detection by automated methodOrdered By: Sabrina Manriquez on 07-18-2023 Bacteria Auto Ql (U) None seen None Seen [facility] Urine clarity by refractomet ry automatedOrdered By: Sabrina Manriquez on 07-18-2023 Clarity Refractometry automated (U) Clear Clear [facility] Urine glucose measurement by automated test strip (mass/volume)Ordered By: Sabrina Manriquez on 07-18-2023 Glucose Auto test strip (U) [Mass/Vol] Normal mg/dL Normal [facility] Urine hemoglobin detection b y automated test stripOrdered By: Sabrina Manriquez on 07-18-2023 Hemoglobin Auto test strip Ql (U) Negative Negative [facility] Urine leukocyte esterase det ection by automated test stripOrdered By: Sabrina Manriquez on 07-18-2023 Leukocyte esterase Auto test strip Ql (U) Negative Negative [facility] Urine pH measurement by auto mated test stripOrdered By: Sabrina Manriquez on 07-18-2023 pH (U) 5.5 [pH] Normal 5.0-9.0 [facility] Comment on above: Order Comment: Name Collection Type:: Clean-Voided Midstream Performed By: #### C 4, C3, CH50 #### [facility] , #### CBC, CMP, ESR, ADDONUAPLUS, CRP #### [facility] [address] Urobilinogen Auto test strip (U) [Mass/Vol]Ordered By: Sabrina Manriquez on 07-18-2023 Urobilinogen (U) [Mass/Vol] Normal mg/dL Normal [facility] Reminderson 04-10-2023 Reminders - From: Elvira Lee LPN To: N - Clinical; Sent: 04/10/2023 09:13:08 EDT Show up: 03/18/2024 07:00:00 EDT Subject: GB US recall Due Date/Time: 04/02/2024 07:00:00 EDT Reminder/Recall Patient due to repeat GB US 04/02/2024 to monitor stability of GB polyp. Normal [facility] RAD - Ultrasound Reporton RAD - Ultrasound Report [id number] F Normal [facility] Ambulatory Visit Summaryon 1 Ambulatory Visit Summary JAY CARR :1960 Visit Date:04/08/2023 Ambulatory Visit Instructions Your Diagnosis Kidney stone BPH (benign prostatic hyperplasia) Hypocitraturia Family history of prostate cancer in father Erectile dysfunction Tests Performed Urnls Dip Stick Auto w/o Microscopy POC 12833 XR Abdomen 1 View -- Results Pending [...] Follow-Up Appointments Saturday 9:15 AM EDT With: Shun MACHADO MD Where: [facility] Patient Educationon 04-08-20 23 Patient Education [...] ? 8 oz (237 mL) of milk, cjudavu-ttmcopkdfxos-voi ry milk, and calcium-fortifiedfruit juice. Calcium-fortified means [...] Spinach (cooked), rhubarb, beets, sweet potatoes, and Ivorian chard. ? Peanuts. ? Potato chips, northern irish fries, and baked potatoes with skin on. ? Nuts and nut products. ? Chocolate. ? If you regularly take a diuretic medicine, make sure to eat at least 1 or 2 servings of fruits or vegetables that are high in potassium each day. These include: ? Avocado. ? Banana. ? Mccormick, prune, carrot, or tomato juice. ? Baked [...] fish oil, or vitamin B6. ? Take yviu-ltm-dhngosv and prescription medicines only as told by your health care provider. These include supplements. What foods should I limit? Limit your in (more content not included)... Normal [facility] Screenson 04-08-2023 Screens [id number] FF Normal [facility] Urology Office/Clinic Noteon 04-08-2023 Urology Office/Clinic Note Chief Complaint 5 month follow up HPI Staff Jay is a 62 y.o. male here for 5 month follow up w/ KUB done 03/28/23-LESLEY. Previous DX: abdominal pain, ED, family history [...] with voice recognition artificial intelligence software, specifically [employer], [employer] and or [employer]ient Experience. Substitutions may have occurred due to the inherent limitations of voice recognition and artificial intelligence software. Follow-up With When Contact Information Shun MACHADO MD, URL [address] [address]- Additional Instructions: 1 yr w/ KUB Patient Education Dietary Guidelines to Help Prevent Kidney Stones I, Yolie Aly, personally scribed for Dr. Machado on 04/08/2023 [...] Hypertension Hypocitraturia Kidney (more content not included)... [facility] Comment on above: Result Comment: Elec tronically Signed By: Shun MACHADO MD\.br\Date and Time Signed: 04/08/23 12:06 EDT\.br\Electronically Co-Signed By: Yolie Aly\.br\Date and Time Co-Signed: 04/08/23 11:16 EDT Lab Reportson 04-05-2023 Lab Reports [id number] F [facility] Lab Reportson 04-03-2023 Lab Reports [id number] F [facility] RAD - MISCon 04-03-2023 RAD - MISC [id number] FF [facility] Reminderson 03-27-2023 Reminders - From: Elvira Lee LPN To: TANASiomara - Clinical; Sent: 10/02/2022 14:02:21 EDT Show up: 2023 07:00:00 EDT Subject: repeat GB US Due Date/Time: 04/03/2023 07:00:00 EDT Reminder/Recall Patient is due to repeat gall bladder US 03/2023. Scheduled 04/02 at [facility]. [facility] CNOVon 03-12-2023 CNOV Office Visit (ORFTMN ) -------- JAY CARR ([id number]) 1960 M Date Time Provider Department 03/12/23 1:10 PM ANTWAN SORIANO During your visit today, we recorded the following information about you: Antwan Soriano MD 03/12/2023 2:46 PM Signed March 12, 2023 HPI: Jay Albrecht Carr is a 62 yo male with [...] No PCP: Audrey Armstrong MD [address] [facility] [id number] FELLOW / RESIDENT: No fellow or resident assisted in th (more content not included)... Normal [facility] Alanine aminotransferase [En zymatic activity/volume] in Serum or PlasmaOrdered By: Hudson De Leon on 02-19-2023 ALT [Catalytic activity/Vol] 24 U/L Normal 7-52 [facility] Comment on above: Performed By: #### C 4, C3, CH50 #### [facility] , #### CBC, CMP, ESR, ADDONUAPLUS, CRP #### [address] Albumin [Mass/volume] in Ser um or Plasma by Bromocresol green (BCG) dye binding methoOrdered By: Hudson De Leon on 02-19-2023 Albumin BCG dye [Mass/Vol] 4.1 g/dL 3.5-5.7 [facility] Alkaline phosphatase [Enzyma tic activity/volume] in Serum or PlasmaOrdered By: Hudson De Leon on 02-19-2023 ALP [Catalytic activity/Vol] 90 U/L Normal 34-104 [facility] Comment on above: Result Comment: PERF ORMED BY: [place] [address] PATHOLOGIST S[employer] E[employer]ECTS SPECIALIST KRISTIE BAKER M.D. Performed By: #### C 4, C3, CH50 #### [facility] , #### CBC, CMP, ESR, ADDONUAPLUS, CRP #### [address] Aspartate aminotransferase [ Enzymatic activity/volume] in Serum or PlasmaOrdered By: Hudson De Leon on 02-19-2023 AST [Catalytic activity/Vol] 27 U/L Normal 13-39 [facility] Comment on above: Performed By: #### C 4, C3, CH50 #### [facility] , #### CBC, CMP, ESR, ADDONUAPLUS, CRP #### [address] Automated basophil %Ordered By: Hudson De Leon on 02-19-2023 Basophils/100 WBC (Bld) 0.7 % Normal . [facility] Comment on above: Performed By: #### C 4, C3, CH50 #### [facility] , #### CBC, CMP, ESR, ADDONUAPLUS, CRP #### [address] Automated basophil countOrde red By: Hudson De Leon on 02-19-2023 Basophils (Bld) [#/Vol] 0.0 10*3/uL Normal 0.0-0.2 [facility] Comment on above: Performed By: #### C 4, C3, CH50 #### [facility] , #### CBC, CMP, ESR, ADDONUAPLUS, CRP #### [address] Automated blood monocyte cou ntOrdered By: Hudson De Leon on 02-19-2023 Monocytes (Bld) [#/Vol] 0.4 10*3/uL Normal 0.0-0.8 [facility] Comment on above: Performed By: #### C 4, C3, CH50 #### [facility] , #### CBC, CMP, ESR, ADDONUAPLUS, CRP #### [address] Automated eosinophil %Ordere d By: Hudson De Leon on 02-19-2023 Eosinophils/100 WBC (Bld) 1.0 % Normal . [facility] Comment on above: Performed By: #### C 4, C3, CH50 #### [facility] , #### CBC, CMP, ESR, ADDONUAPLUS, CRP #### [facility] [address] Automated eosinophil countOr dered By: Hudson De Leon on 02-19-2023 Eosinophils (Bld) [#/Vol] 0.0 10*3/uL Normal 0.0-0.45 [facility] Comment on above: Performed By: #### C 4, C3, CH50 #### [facility] , #### CBC, CMP, ESR, ADDONUAPLUS, CRP #### [facility] [address] Automated erythrocytes count in urine sediment (number/area)Ordered By: Hudson De Leon on 02-19-2023 RBC Auto (Urine sed) [#/Area] 0-1 [HPF] 0-4 [facility] Automated leukocytes count i n urine sediment (number/area)Ordered By: Hudson De Leon on 02-19-2023 WBC Auto (Urine sed) [#/Area] None seen [HPF] 0-4 [facility] Automated monocyte %Ordered By: Hudson De Leon on 02-19-2023 Monocytes/100 WBC (Bld) 8.1 % Normal . [facility] Comment on above: Performed By: #### C 4, C3, CH50 #### [facility] , #### CBC, CMP, ESR, ADDONUAPLUS, CRP #### [facility] [address] Automated neutrophil %Ordere d By: Hudson De Leon on 02-19-2023 Neutrophils/100 WBC (Bld) 71.7 % Normal . [facility] Comment on above: Performed By: #### C 4, C3, CH50 #### [facility] , #### CBC, CMP, ESR, ADDONUAPLUS, CRP #### [facility] [address] Automated urine color determ inationOrdered By: Hudson De Leon on 02-19-2023 Color (U) Yellow Normal Yellow [facility] Comment on above: Order Comment: Name Collection Type:: Clean-Voided Midstream Performed By: #### C 4, C3, CH50 #### [facility] , #### CBC, CMP, ESR, ADDONUAPLUS, CRP #### [address] Bilirubin Test strip Ql (U)O rdered By: Husdon De Leon on 02-19-2023 Bilirubin Ql (U) Negative Negative [facility] Bilirubin.total [Mass/volume ] in Serum or PlasmaOrdered By: Hudson Catherinerow on 02-19-2023 Bilirubin [Mass/Vol] 0.6 mg/dL Normal 0.3-1.0 [facility] Comment on above: Performed By: #### C 4, C3, CH50 #### [facility] , #### CBC, CMP, ESR, ADDONUAPLUS, CRP #### [address] Calcium [Mass/volume] in Ser um or PlasmaOrdered By: Hudson De Leon on 02-19-2023 Calcium [Mass/Vol] 9.0 mg/dL Normal 8.6-10.3 [facility] Comment on above: Performed By: #### C 4, C3, CH50 #### [facility] , #### CBC, CMP, ESR, ADDONUAPLUS, CRP #### [facility] [address] [place] [address] Carbon dioxide, total [Moles /volume] in Serum or PlasmaOrdered By: Hudson Catherinerow on 02-19-2023 CO2 [Moles/Vol] 29.6 mmol/L Normal 21.0-31.0 [facility] Comment on above: Performed By: #### C 4, C3, CH50 #### [facility] , #### CBC, CMP, ESR, ADDONUAPLUS, CRP #### [address] Chloride [Moles/volume] in S lenny or PlasmaOrdered By: Hudson De Leon on 02-19-2023 Chloride [Moles/Vol] 105 mmol/L Normal 98-107 [facility] Comment on above: Performed By: #### C 4, C3, CH50 #### [facility] , #### CBC, CMP, ESR, ADDONUAPLUS, CRP #### [address] Complement C3on 02-19-2023 Complement C3 121 mg/dL Normal 82-167 [facility] Comment on above: Result Comment: Perf ormed at: - [facility] [address] [id number] Sewage Screen Operator: Derek Toscano PhD, Phone: [phone] Performed By: #### C 4, C3, CH50 #### [facility] , #### CBC, CMP, ESR, ADDONUAPLUS, CRP #### [address] Complement C4on 02-19-2023 Complement C4 23 mg/dL Normal 12-38 [facility] Comment on above: Result Comment: PERF ORMED BY: [place] [address] PATHOLOGIST SIGHT EFFECTS SPECIALIST KRISTIE BAKER M.D. Performed By: #### C 4, C3, CH50 #### [facility] , #### CBC, CMP, ESR, ADDONUAPLUS, CRP #### [address] Complement Total (CH50)on Complement Total (CH50) 48 Normal >41 [facility] Comment on above: Result Comment: [...] out of range values. Performed at: - [facility] [id number] Sewage Screen Operator: Derek Tsocano PhD, Phone: [phone] PERFORMED BY: [place] [address] PATHOLOGIST SIGHT EFFECTS SPECIALIST KRISTIE BAKER M.D. Performed By: #### C 4, C3, CH50 #### [facility] , #### CBC, CMP, ESR, ADDONUAPLUS, CRP #### [address] Complete Blood Count Auto Di ffon 02-19-2023 Mean Corpuscular HGB Conc 33.9 g/dL Normal 32.5-35.6 [facility] Comment on above: Performed By: #### C 4, C3, CH50 #### [facility] , #### CBC, CMP, ESR, ADDONUAPLUS, CRP #### [address] NRBC% 0.1 /100{WBC} Normal 0-0.5 [facility] Comment on above: Performed By: #### C 4, C3, CH50 #### [facility] , #### CBC, CMP, ESR, ADDONUAPLUS, CRP #### [address] Comprehensive Metabolic Pane tanika 02-19-2023 Albumin [Mass/Vol] 4.1 g/dL Normal 3.5-5.7 [facility] Comment on above: Performed By: #### C 4, C3, CH50 #### [facility] , #### CBC, CMP, ESR, ADDONUAPLUS, CRP #### [place] [address] [place] GFR/1.73 sq M.predicted MDRD (S/P/Bld) [Vol rate/Area] mL/min/{1.73_m2} Normal [facility] Comment on above: Performed By: #### C 4, C3, CH50 #### [facility] , #### CBC, CMP, ESR, ADDONUAPLUS, CRP #### [address] Creatinine [Mass/volume] in Serum or PlasmaOrdered By: Hudson De Leon on 02-19-2023 Creatinine [Mass/Vol] 0.95 mg/dL Normal 0.70-1.30 [facility] Comment on above: Performed By: #### C 4, C3, CH50 #### [facility] , #### CBC, CMP, ESR, ADDONUAPLUS, CRP #### [place] [address] [place] Dipstick and Microscopicon 0 02-19-2023 Appearance (U) Clear Normal Clear [facility] Comment on above: Order Comment: Name Collection Type:: Clean-Voided Midstream Performed By: #### C 4, C3, CH50 #### [facility] , #### CBC, CMP, ESR, ADDONUAPLUS, CRP #### [facility] [address] [place] [address] [place] Bacteria,Urine None Seen Normal None Seen [facility] Comment on above: Order Comment: Name Collection Type:: Clean-Voided Midstream Performed By: #### C 4, C3, CH50 #### [facility] , #### CBC, CMP, ESR, ADDONUAPLUS, CRP #### [place] [address] [place] Bilirubin,Urine Negative Normal Negative [facility] Comment on above: Order Comment: Name Collection Type:: Clean-Voided Midstream Performed By: #### C 4, C3, CH50 #### [facility] , #### CBC, CMP, ESR, ADDONUAPLUS, CRP #### [address] Glucose Ql (U) Normal Normal Normal [facility] Comment on above: Order Comment: Name Collection Type:: Clean-Voided Midstream Performed By: #### C 4, C3, CH50 #### [facility] , #### CBC, CMP, ESR, ADDONUAPLUS, CRP #### [address] Hyaline Casts,Urine None Seen Normal 0-8 [facility] Comment on above: Order Comment: Name Collection Type:: Clean-Voided Midstream Result Comment: PERF ORMED BY: [place] [address] PATHOLOGIST SIGHT EFFECTS SPECIALIST KRISTIE BAKER M.D. Performed By: #### C 4, C3, CH50 #### [facility] , #### CBC, CMP, ESR, ADDONUAPLUS, CRP #### [address] Ketones Ql (U) Negative Normal Negative [facility] Comment on above: Order Comment: Name Collection Type:: Clean-Voided Midstream Performed By: #### C 4, C3, CH50 #### [facility] , #### CBC, CMP, ESR, ADDONUAPLUS, CRP #### [address] Leukocyte esterase Test strip Ql (U) Negative Normal Negative [facility] Comment on above: Order Comment: Name Collection Type:: Clean-Voided Midstream Performed By: #### C 4, C3, CH50 #### [facility] , #### CBC, CMP, ESR, ADDONUAPLUS, CRP #### [address] Nitrite,Urine Negative Normal Negative [facility] Comment on above: Order Comment: Name Collection Type:: Clean-Voided Midstream Performed By: #### C 4, C3, CH50 #### [facility] , #### CBC, CMP, ESR, ADDONUAPLUS, CRP #### [address] Occult Blood,Urine Negative Normal Negative [facility] Comment on above: Order Comment: Name Collection Type:: Clean-Voided Midstream Performed By: #### C 4, C3, CH50 #### [facility] , #### CBC, CMP, ESR, ADDONUAPLUS, CRP #### [address] Protein,Urine Negative Normal Negative [facility] Comment on above: Order Comment: Name Collection Type:: Clean-Voided Midstream Performed By: #### C 4, C3, CH50 #### [facility] , #### CBC, CMP, ESR, ADDONUAPLUS, CRP #### [address] RBC LM.HPF (Urine sed) [#/Area] 0 /[HPF] Normal 0-4 [facility] Comment on above: Order Comment: Name Collection Type:: Clean-Voided Midstream Performed By: #### C 4, C3, CH50 #### [facility] , #### CBC, CMP, ESR, ADDONUAPLUS, CRP #### [address] Specificy Hardy,Urine 1.018 Normal 1.001-1.03 0 [facility] Comment on above: Order Comment: Name Collection Type:: Clean-Voided Midstream Performed By: #### C 4, C3, CH50 #### [facility] , #### CBC, CMP, ESR, ADDONUAPLUS, CRP #### [place] [id number] [place] Squamous Epithelial Cell,Urine None Seen Normal 0-2 [facility] Comment on above: Order Comment: Name Collection Type:: Clean-Voided Midstream Performed By: #### C 4, C3, CH50 #### [facility] , #### CBC, CMP, ESR, ADDONUAPLUS, CRP #### [address] Urobilinogen,Urine Normal Normal Normal [facility] Comment on above: Order Comment: Name Collection Type:: Clean-Voided Midstream Performed By: #### C 4, C3, CH50 #### [facility] , #### CBC, CMP, ESR, ADDONUAPLUS, CRP #### [address] WBC,Urine None Seen Normal 0-4 [facility] Comment on above: Order Comment: Name Collection Type:: Clean-Voided Midstream Performed By: #### C 4, C3, CH50 #### [facility] , #### CBC, CMP, ESR, ADDONUAPLUS, CRP #### [address] Erythrocyte Sedimentation Ra natan 02-19-2023 ESR (Bld) [Velocity] 7 mm/h Normal 0-19 [facility] Comment on above: Result Comment: PERF ORMED BY: [place] [address] PATHOLOGIST SIGHT EFFECTS SPECIALIST KRISTIE BAKER M.D. Performed By: #### C 4, C3, CH50 #### [facility] , #### CBC, CMP, ESR, ADDONUAPLUS, CRP #### [address] Erythrocyte distribution wid th [Ratio] by Automated countOrdered By: Hudson De Leon on 02-19-2023 Erythrocyte distribution width (RBC) [Ratio] 13.6 % Normal 12.0-14.8 [facility] Comment on above: Performed By: #### C 4, C3, CH50 #### [facility] , #### CBC, CMP, ESR, ADDONUAPLUS, CRP #### [facility] [address] Erythrocyte sedimentation ra te by [employer] methodOrdered By: Hudsonestella De Leon on 02-19-2023 ESR Photometric method (Bld) [Velocity] 7 mm/hr 0-19 [facility] Erythrocytes [#/volume] in B lood by Automated countOrdered By: Hudson Haley on 02-19-2023 RBC (Bld) [#/Vol] 4.55 10*6/uL Normal 3.90-5.60 [facility] Comment on above: Performed By: #### C 4, C3, CH50 #### [facility] , #### CBC, CMP, ESR, ADDONUAPLUS, CRP #### [address] Glucose [Mass/volume] in Ser um or PlasmaOrdered By: Hudsonestella De Leon on 02-19-2023 Glucose [Mass/Vol] 108 mg/dL High 70-100 [facility] Comment on above: ADA recommended refe rence rangeRandom Glucose Reference Range is dependent on time and content of last meal. Glucose of more than 200 mg/dL in a nonstressed, ambulatory subject supports the diagnosis of Diabetes Mellitus. Result Comment: [place] om Glucose Reference Range is dependent on time and content of last meal. Glucose of more than 200 mg/dL in a nonstressed, ambulatory subject supports the diagnosis of Diabetes Mellitus. ADA recommended reference range Performed By: #### C 4, C3, CH50 #### [facility] , #### CBC, CMP, ESR, ADDONUAPLUS, CRP #### [address] Hematocrit [Volume Fraction] of Blood by Automated countOrdered By: Hudson Haley on 02-19-2023 Hematocrit (Bld) [Volume fraction] 42.3 % Normal 38.8-50.0 [facility] Comment on above: Performed By: #### C 4, C3, CH50 #### [facility] , #### CBC, CMP, ESR, ADDONUAPLUS, CRP #### [facility] [address] Hemoglobin [Mass/volume] in BloodOrdered By: Hudson De Leon on 02-19-2023 Hemoglobin (Bld) [Mass/Vol] 14.3 g/dL Normal 13.0-17.0 [facility] Comment on above: Performed By: #### C 4, C3, CH50 #### [facility] , #### CBC, CMP, ESR, ADDONUAPLUS, CRP #### [facility] [address] [place] [address] Ketones Auto test strip (U) [Mass/Vol]Ordered By: Hudson De Leon on 02-19-2023 Ketones (U) [Mass/Vol] Negative Negative [facility] Laboratory - UrinalysisOrder ed By: Hudson De Leon on 02-19-2023 Hyaline casts LM Ql (Urine sed) None seen [LPF] 0-8 [facility] Leukocytes [#/volume] correc leah for nucleated erythrocytes in Blood by Automated counOrdered By: Hudson De Leon on 02-19-2023 WBC corrected for nucl RBC Auto (Bld) [#/Vol] 4.7 10*3/uL 4.1-10.5 [facility] Leukocytes [#/volume] in Blo od by Automated countOrdered By: Hudson De Leon on 02-19-2023 WBC (Bld) [#/Vol] 4.7 10*3/uL Normal 4.1-10.5 [facility] Comment on above: Performed By: #### C 4, C3, CH50 #### [facility] , #### CBC, CMP, ESR, ADDONUAPLUS, CRP #### [facility] [address] [place] [address] [place] Lymphocytes [#/volume] in Bl ood by Automated countOrdered By: Hudson De Leon on 02-19-2023 Lymphocytes (Bld) [#/Vol] 0.9 10*3/uL Low 1.00-4.8 [facility] Comment on above: Performed By: #### C 4, C3, CH50 #### [facility] , #### CBC, CMP, ESR, ADDONUAPLUS, CRP #### [place] [address] [place] Lymphocytes/100 leukocytes i n Blood by Automated countOrdered By: Hudson Catherinerow on 02-19-2023 Lymphocytes/100 WBC (Bld) 18.5 % Normal . [facility] Comment on above: Performed By: #### C 4, C3, CH50 #### [facility] , #### CBC, CMP, ESR, ADDONUAPLUS, CRP #### [address] MCH [Entitic mass] by Automa leah countOrdered By: Hudson Catherinerow on 02-19-2023 MCH (RBC) [Entitic mass] 31.5 pg Normal 27.5-35.2 [facility] Comment on above: Performed By: #### C 4, C3, CH50 #### [facility] , #### CBC, CMP, ESR, ADDONUAPLUS, CRP #### [address] MCHC Auto (RBC) [Mass/Vol]Or dered By: Hudson Catherinerow on 02-19-2023 MCHC (RBC) [Mass/Vol] 33.9 g/dL 32.5-35.6 [facility] MCV [Entitic volume] by Auto mated countOrdered By: Hudson Haley on 02-19-2023 MCV (RBC) [Entitic vol] 93.0 fL Normal 83.5-101 [facility] Comment on above: Performed By: #### C 4, C3, CH50 #### [facility] , #### CBC, CMP, ESR, ADDONUAPLUS, CRP #### [facility] [address] [place] [address] Neutrophils [#/volume] in Bl ood by Automated countOrdered By: Hudson De Leon on 02-19-2023 Neutrophils (Bld) [#/Vol] 3.4 10*3/uL Normal 1.8-7.7 [facility] Comment on above: Performed By: #### C 4, C3, CH50 #### [facility] , #### CBC, CMP, ESR, ADDONUAPLUS, CRP #### [facility] [address] [place] [address] Nitrite Test strip Ql (U)Ord ered By: Hudson Catherinerow on 02-19-2023 Nitrite Ql (U) Negative Negative [facility] No Panel InformationOrdered By: Hudson Catherinerow on 02-19-2023 Estimated GFR (CKD-EPI) > 60.0 mL/Min [facility] Creatinine Clearance (Chem N/A [facility] Nucleated erythrocytes [Pres ence] in Blood by Automated countOrdered By: Hudson Catherinerow on 02-19-2023 Nucleated RBC Auto Ql (Bld) 0.1 /100{WBC} 0-0.5 [facility] Platelet mean volume [Entiti c volume] in Blood by Automated countOrdered By: Hudson Catherinerow on 02-19-2023 Platelet mean volume (Bld) [Entitic vol] 9.0 fL Normal 6.6-10.1 [facility] Comment on above: Performed By: #### C 4, C3, CH50 #### [facility] , #### CBC, CMP, ESR, ADDONUAPLUS, CRP #### [facility] [address] [place] [address] Platelets [#/volume] in Bloo d by Automated countOrdered By: Hudsonestella De Leon on 02-19-2023 Platelets (Bld) [#/Vol] 198 10*3/uL Normal 150-450 [facility] Comment on above: Performed By: #### C 4, C3, CH50 #### [facility] , #### CBC, CMP, ESR, ADDONUAPLUS, CRP #### [facility] [address] [place] [address] Potassium [Moles/volume] in Serum or PlasmaOrdered By: Hudson De Leon on 02-19-2023 Potassium [Moles/Vol] 4.0 mmol/L Normal 3.5-5.1 [facility] Comment on above: Performed By: #### C 4, C3, CH50 #### [facility] , #### CBC, CMP, ESR, ADDONUAPLUS, CRP #### [address] Protein Auto test strip (U) [Mass/Vol]Ordered By: Hudson Catherinerow on 02-19-2023 Protein (U) [Mass/Vol] Negative Negative [facility] Protein [Mass/volume] in Ser um or PlasmaOrdered By: Hudson Catherinerow on 02-19-2023 Protein [Mass/Vol] 6.7 g/dL Normal 6.4-8.9 [facility] Comment on above: Performed By: #### C 4, C3, CH50 #### [facility] , #### CBC, CMP, ESR, ADDONUAPLUS, CRP #### [address] Serum globulin measurement b y calculation (mass/volume)Ordered By: Hudson Catherinerow on 02-19-2023 Globulin (S) [Mass/Vol] 2.6 g/dL [facility] Comment on above: Performed By: #### C 4, C3, CH50 #### [facility] , #### CBC, CMP, ESR, ADDONUAPLUS, CRP #### [facility] [address] [place] [address] Serum or plasma albumin/glob ulin mass ratioOrdered By: Hudson Catherinerow on 02-19-2023 Albumin/Globulin [Mass ratio] 1.6 {ratio} [facility] Comment on above: Performed By: #### C 4, C3, CH50 #### [facility] , #### CBC, CMP, ESR, ADDONUAPLUS, CRP #### [facility] [address] Serum or plasma anion gap de terminationOrdered By: Hudson Haley on 02-19-2023 Anion gap [Moles/Vol] 9.4 mmol/L Normal 6.0-15.0 [facility] Comment on above: Performed By: #### C 4, C3, CH50 #### [facility] , #### CBC, CMP, ESR, ADDONUAPLUS, CRP #### [address] Sodium [Moles/volume] in Ser um or PlasmaOrdered By: Hudson De Leon on 02-19-2023 Sodium [Moles/Vol] 140 mmol/L Normal 136-145 [facility] Comment on above: Performed By: #### C 4, C3, CH50 #### [facility] , #### CBC, CMP, ESR, ADDONUAPLUS, CRP #### [address] Specific gravity Auto test s trip (U) [Rel density]Ordered By: Hudsonestella De Leon on 02-19-2023 Specific gravity (U) [Rel density] 1.018 1.001-1.03 0 [facility] Squamous epithelial cells de tection in urine sediment by light microscopyOrdered By: Hudson De Leon on 02-19-2023 Epithelial cells.squamous LM Ql (Urine sed) None seen [HPF] 0-2 [facility] Urea nitrogen [Mass/volume] in Serum or PlasmaOrdered By: Hudson De Leon on 02-19-2023 Urea nitrogen [Mass/Vol] 16 mg/dL Normal 7-25 [facility] Comment on above: Performed By: #### C 4, C3, CH50 #### [facility] , #### CBC, CMP, ESR, ADDONUAPLUS, CRP #### [address] Urine bacteria detection by automated methodOrdered By: Hudson De Leon on 02-19-2023 Bacteria Auto Ql (U) None seen None Seen [facility] Urine clarity by refractomet ry automatedOrdered By: Hudson De Leon on 02-19-2023 Clarity Refractometry automated (U) Clear Clear [facility] Urine glucose measurement by automated test strip (mass/volume)Ordered By: Hudson De Leon on 02-19-2023 Glucose Auto test strip (U) [Mass/Vol] Normal mg/dL Normal [facility] Urine hemoglobin detection b y automated test stripOrdered By: Husdon De Leon on 02-19-2023 Hemoglobin Auto test strip Ql (U) Negative Negative [facility] Urine leukocyte esterase det ection by automated test stripOrdered By: Hudson De Leon on 02-19-2023 Leukocyte esterase Auto test strip Ql (U) Negative Negative [facility] Urine pH measurement by auto mated test stripOrdered By: Hudson De Leon on 02-19-2023 pH (U) 5.5 [pH] Normal 5.0-9.0 [facility] Comment on above: Order Comment: Name Collection Type:: Clean-Voided Midstream Performed By: #### C 4, C3, CH50 #### [facility] , #### CBC, CMP, ESR, ADDONUAPLUS, CRP #### [facility] [address] Urobilinogen Auto test strip (U) [Mass/Vol]Ordered By: Hudson De Leon on 02-19-2023 Urobilinogen (U) [Mass/Vol] Normal mg/dL Normal [facility] Screenson 10-17-2022 Screens [id number]:1 27 Normal [facility] Patient Educationon 10-17-19 23 Patient Education [...] ? 8 oz (237 mL) of milk, gtnpkcm-ifnesamefofj-tit ry milk, and calcium-fortifiedfruit juice. Calcium-fortified means [...] Spinach (cooked), rhubarb, beets, sweet potatoes, and Ivorian chard. ? Peanuts. ? Potato chips, northern irish fries, and baked potatoes with skin on. ? Nuts and nut products. ? Chocolate. ? If you regularly take a diuretic medicine, make sure to eat at least 1 or 2 servings of fruits or vegetables that are high in potassium each day. These include: ? Avocado. ? Banana. ? Mccormick, prune, carrot, or tomato juice. ? Baked [...] fish oil, or vitamin B6. ? Take gvfw-lkn-qatjuuj and prescription medicines only as told by your health care provider. These include supplements. What foods should I limit? Limit your in (more content not included)... Normal [facility] Urology Office/Clinic Noteon 10-16-2022 Urology [...] Contact Information Shun MACHADO MD, URL [address] [place], [place] [id number]- Additional Instructions: jan 2023 with [facility], blood work Patient Education Dietary Guidelines to Help Prevent Kidney Stones IMary, personally scribed for Dr. Machado on 10/16/2022 15:04:19. . Documentation recorded by the Mary correa a (more content not included)... Normal [facility] Comment on above: Result Comment: Elec tronically Signed By: Shun MACHADO MD\.br\Date and Time Signed: 10/16/22 15:08 EDT\.br\Electronically Co-Signed By: Mary Alicea\.br\Date and Time Co-Signed: 10/16/22 15:04 EDT\.br\Electronically Co-Signed By: Mary Alicea\.br\Date and Time Co-Signed: 10/16/22 15:06 EDT Alanine aminotransferase [En zymatic activity/volume] in Serum or PlasmaOrdered By: Hudson De Leon on 10-15-2022 ALT [Catalytic activity/Vol] 19 U/L 7-52 [facility] Albumin [Mass/volume] in Ser um or Plasma by Bromocresol green (BCG) dye binding methoOrdered By: Hudson De Leon on 10-15-2022 Albumin BCG dye [Mass/Vol] 4.1 g/dL 3.5-5.7 [facility] Alkaline phosphatase [Enzyma tic activity/volume] in Serum or PlasmaOrdered By: Hudson De Leon on 10-15-2022 ALP [Catalytic activity/Vol] 89 U/L 34-104 [facility] Aspartate aminotransferase [ Enzymatic activity/volume] in Serum or PlasmaOrdered By: Hudson De Leon on 10-15-2022 AST [Catalytic activity/Vol] 19 U/L 13-39 [facility] Automated erythrocytes count in urine sediment (number/area)Ordered By: Hudson De Leon on 10-15-2022 RBC Auto (Urine sed) [#/Area] 1-2 [HPF] 0-4 [facility] Automated leukocytes count i n urine sediment (number/area)Ordered By: Hudson De Leon on 10-15-2022 WBC Auto (Urine sed) [#/Area] None seen [HPF] 0-4 [facility] Basophils Auto (Bld) [#/Vol] Ordered By: Hudson De Leon on 10-15-2022 Basophils (Bld) [#/Vol] 0.0 10*3/uL 0.0-0.2 [facility] Basophils/100 WBC Auto (Bld) Ordered By: Hudson De Leon on 10-15-2022 Basophils/100 WBC (Bld) 0.5 % . [facility] Bilirubin Test strip Ql (U)O rdered By: Hudson De Leon on 10-15-2022 Bilirubin Ql (U) Negative Negative [facility] Bilirubin.total [Mass/volume ] in Serum or PlasmaOrdered By: Hudson De Leon on 10-15-2022 Bilirubin [Mass/Vol] 0.6 mg/dL 0.3-1.0 [facility] Calcium [Mass/volume] in Ser um or PlasmaOrdered By: Hudson De Leon on 10-15-2022 Calcium [Mass/Vol] 8.5 mg/dL 8.6-10.3 [facility] Carbon dioxide, total [Moles /volume] in Serum or PlasmaOrdered By: Hudson De Leon on 10-15-2022 CO2 [Moles/Vol] 27.8 mmol/L 21.0-31.0 [facility] Chloride [Moles/volume] in S lenny or PlasmaOrdered By: Hudson De Leon on 10-15-2022 Chloride [Moles/Vol] 106 mmol/L 98-107 [facility] Color Auto (U)Ordered By: Maykel ttdwain Haley on 10-15-2022 Color (U) Yellow Yellow [facility] Creatinine [Mass/volume] in Serum or PlasmaOrdered By: Hudson De Leon on 10-15-2022 Creatinine [Mass/Vol] 1.09 mg/dL 0.70-1.30 [facility] Eosinophils Auto (Bld) [#/Vo l]Ordered By: Hudson De Leon on 10-15-2022 Eosinophils (Bld) [#/Vol] 0.1 10*3/uL 0.0-0.45 [facility] Eosinophils/100 WBC Auto (Bl d)Ordered By: Hudson De Leon on 10-15-2022 Eosinophils/100 WBC (Bld) 1.6 % . [facility] Erythrocyte distribution wid th Auto (RBC) [Ratio]Ordered By: Hudson De Leon on 10-15-2022 Erythrocyte distribution width (RBC) [Ratio] 14.2 % 12.0-14.8 [facility] Erythrocyte sedimentation ra te by Photometric methodOrdered By: Hudson De Leon on 10-15-2022 ESR Photometric method (Bld) [Velocity] 6 mm/hr 0-19 [facility] Globulin Calc (S) [Mass/Vol] Ordered By: Hudson De Leon on 10-15-2022 Globulin (S) [Mass/Vol] 2.8 g/dL [facility] Glucose [Mass/volume] in Ser um or PlasmaOrdered By: Hudson De Leon on 10-15-2022 Glucose [Mass/Vol] 139 mg/dL 70-100 [facility] Comment on above: ADA recommended refe rence rangeRandom Glucose Reference Range is dependent on time and content of last meal. Glucose of more than 200 mg/dL in a nonstressed, ambulatory subject supports the diagnosis of Diabetes Mellitus. Hematocrit Auto (Bld) [Volum e fraction]Ordered By: Hudson De Leon on 10-15-2022 Hematocrit (Bld) [Volume fraction] 42.6 % 38.8-50.0 [facility] Hemoglobin [Mass/volume] in BloodOrdered By: Hudson De Leon on 10-15-2022 Hemoglobin (Bld) [Mass/Vol] 14.4 g/dL 13.0-17.0 [facility] Ketones Auto test strip (U) [Mass/Vol]Ordered By: Hudson De Leon on 10-15-2022 Ketones (U) [Mass/Vol] Negative Negative [facility] Laboratory - UrinalysisOrder ed By: Hudson De Leon on 10-15-2022 Hyaline casts LM Ql (Urine sed) None seen [LPF] 0-8 [facility] Leukocytes [#/volume] correc leah for nucleated erythrocytes in Blood by Automated counOrdered By: Hudson De Leon on 10-15-2022 WBC corrected for nucl RBC Auto (Bld) [#/Vol] 4.9 10*3/uL 4.1-10.5 [facility] Lymphocytes Auto (Bld) [#/Vo l]Ordered By: Hudson De Leon on 10-15-2022 Lymphocytes (Bld) [#/Vol] 1.0 10*3/uL 1.00-4.8 [facility] Lymphocytes/100 WBC Auto (Bl d)Ordered By: Hudson De Leon on 10-15-2022 Lymphocytes/100 WBC (Bld) 20.0 % . [facility] MCH Auto (RBC) [Entitic mass ]Ordered By: Hudson De Leon on 10-15-2022 MCH (RBC) [Entitic mass] 31.2 pg 27.5-35.2 [facility] MCHC Auto (RBC) [Mass/Vol]Or dered By: Hudson De Leon on 10-15-2022 MCHC (RBC) [Mass/Vol] 33.7 g/dL 32.5-35.6 [facility] MCV Auto (RBC) [Entitic vol] Ordered By: Hudson De Leon on 10-15-2022 MCV (RBC) [Entitic vol] 92.8 fL 83.5-101 [facility] Monocytes Auto (Bld) [#/Vol] Ordered By: Hudson De Leon on 10-15-2022 Monocytes (Bld) [#/Vol] 0.4 10*3/uL 0.0-0.8 [facility] Monocytes/100 WBC Auto (Bld) Ordered By: Hudson De Leon on 10-15-2022 Monocytes/100 WBC (Bld) 8.6 % . [facility] Neutrophils Auto (Bld) [#/Vo l]Ordered By: Hudson De Leon on 10-15-2022 Neutrophils (Bld) [#/Vol] 3.4 10*3/uL 1.8-7.7 [facility] Neutrophils/100 WBC Auto (Bl d)Ordered By: Hudson De Leon on 10-15-2022 Neutrophils/100 WBC (Bld) 69.3 % . [facility] Nitrite Test strip Ql (U)Ord ered By: Hudson De Leon on 10-15-2022 Nitrite Ql (U) Negative Negative [facility] No Panel InformationOrdered By: Hudson De Leon on 10-15-2022 Estimated GFR (CKD-EPI) > 60.0 mL/Min [facility] Creatinine Clearance (Chem N/A [facility] Nucleated erythrocytes [Pres ence] in Blood by Automated countOrdered By: Hudson De Leon on 10-15-2022 Nucleated RBC Auto Ql (Bld) 0.1 /100{WBC} 0-0.5 [facility] Platelet mean volume Auto (B ld) [Entitic vol]Ordered By: Hudson De Leon on 10-15-2022 Platelet mean volume (Bld) [Entitic vol] 9.1 fL 6.6-10.1 [facility] Platelets Auto (Bld) [#/Vol] Ordered By: Hudson De Leon on 10-15-2022 Platelets (Bld) [#/Vol] 196 10*3/uL 150-450 [facility] Potassium [Moles/volume] in Serum or PlasmaOrdered By: Hudson De Leon on 10-15-2022 Potassium [Moles/Vol] 4.4 mmol/L 3.5-5.1 [facility] Protein Auto test strip (U) [Mass/Vol]Ordered By: Hudson De Leon on 10-15-2022 Protein (U) [Mass/Vol] Negative Negative [facility] Protein [Mass/volume] in Ser um or PlasmaOrdered By: Hudson De Leon on 10-15-2022 Protein [Mass/Vol] 6.9 g/dL 6.4-8.9 [facility] RBC Auto (Bld) [#/Vol]Ordere d By: Hudson De Leon on 10-15-2022 RBC (Bld) [#/Vol] 4.60 10*6/uL 3.90-5.60 [facility] Serum or plasma albumin/glob ulin mass ratioOrdered By: Hudson De Leon on 10-15-2022 Albumin/Globulin [Mass ratio] 1.5 {ratio} [facility] Serum or plasma anion gap de terminationOrdered By: Hudson De Leon on 10-15-2022 Anion gap [Moles/Vol] 9.6 mmol/L 6.0-15.0 [facility] Sodium [Moles/volume] in Ser um or PlasmaOrdered By: Hudson De Leon on 10-15-2022 Sodium [Moles/Vol] 139 mmol/L 136-145 [facility] Specific gravity Auto test s trip (U) [Rel density]Ordered By: Hudson De Leon on 10-15-2022 Specific gravity (U) [Rel density] 1.022 1.001-1.03 0 [facility] Squamous epithelial cells de tection in urine sediment by light microscopyOrdered By: Hudson De Leon on 10-15-2022 Epithelial cells.squamous LM Ql (Urine sed) None seen [HPF] 0-2 [facility] Urea nitrogen [Mass/volume] in Serum or PlasmaOrdered By: Hudson De Leon on 10-15-2022 Urea nitrogen [Mass/Vol] 24 mg/dL 7-25 [facility] Urine bacteria detection by automated methodOrdered By: Hudson De Leon on 10-15-2022 Bacteria Auto Ql (U) None seen None Seen [facility] Urine clarity by refractomet ry automatedOrdered By: Hudson De Leon on 10-15-2022 Clarity Refractometry automated (U) Clear Clear [facility] Urine glucose measurement by automated test strip (mass/volume)Ordered By: Hudson De Leon on 10-15-2022 Glucose Auto test strip (U) [Mass/Vol] Normal mg/dL Normal [facility] Urine hemoglobin detection b y automated test stripOrdered By: Hudson De Leon on 10-15-2022 Hemoglobin Auto test strip Ql (U) Negative Negative [facility] Urine leukocyte esterase det ection by automated test stripOrdered By: Hudson De Leon on 10-15-2022 Leukocyte esterase Auto test strip Ql (U) Negative Negative [facility] Urobilinogen Auto test strip (U) [Mass/Vol]Ordered By: Hudson De Leon on 10-15-2022 Urobilinogen (U) [Mass/Vol] Normal mg/dL Normal [facility] WBC Auto (Bld) [#/Vol]Ordere d By: Hudson De Leon on 10-15-2022 WBC (Bld) [#/Vol] 4.9 10*3/uL 4.1-10.5 [facility] pH Auto test strip (U)Ordere d By: Hudson De Leon on 10-15-2022 pH (U) 5.5 [pH] 5.0-9.0 [facility] Ambulatory Visit Summaryon 0 10-02-2022 Ambulatory Visit Summary JAY CARR :1960 Visit Date:10/02/2022 Ambulatory Visit Instructions Your Diagnosis Abnormal gallbladder ultrasound Your Care Team Attending Physician - Arely LOGAN MD Primary Care Physician - Audrey Armstrong [...] RIVERA, Shun Mirza Where: [facility] Maddy [facility] General Surgery Office/Clini c Noteon 10-02-2022 [...] ma (more content not included)... Normal [facility] Comment on above: Result Comment: Elec tronically Signed By: DOREEN RIVERA, Arely Clarke.wesley\Date and Time Signed: 10/02/22 14:05 EDT RAD - Ultrasound Reporton RAD - Ultrasound Report [id number]: 127 Normal [facility] Lab Reportson 09-17-2022 Lab Reports [id number]:1 27 Normal [facility] Covid-19 PCR (CVDTBH)on 08-23 SARS-CoV-2 (COVID-19) RNA LU+probe Ql (Unsp spec) Not detected Normal NOT DETECTED [facility] Comment on above: Result Comment: This test is not yet approved or cleared by the [place] FDA. When there are no FDA-approved or cleared tests available, and other criteria are met, FDA can make tests available under an emergency access mechanism called an Emergency Use Authorization (EUA). The EUA for this test is supported by the [place] of Health and Human Service's (HHS's) declaration [...] SARS-CoV-2. Performed By: #### I NSULIN #### [facility] [address] [place] [address] Dr. Carolyn King SYMPTOMATIC COVID-19 ANTIGEN on 09-11-2022 EUA Statement SEE BELOW Normal [facility] Comment on above: Result Comment: [...] sooner. Performed By: #### C VDAGS #### [facility] [address] [place] [id number] Carolyn King SARS-CoV-2 (COVID-19) RNA LU+probe Ql (Unsp spec) Negative Normal NEGATIVE [facility] Comment on above: Performed By: #### C VDAGS #### [facility] [address] [place] [id number] FOOT RT WO [...] by: LAURY ZEPEDA Date: 2022-08-31 08:09 Normal [facility] US SINGLE QUAD RT UPPERon [...] by: LAURY ZEPEDA Date: 2022-08-31 07:41 Normal [facility] POINT OF CARE GLUCOSEon 05-24 Glucose [Mass/Vol] 125 mg/dL Critically high 74-106 [facility] Comment on above: Performed By: #### I NSULIN #### [facility] [address] [place] [place] [address] Dr. Carolyn King Glucose [Mass/Vol] 105 mg/dL Normal 74-106 [facility] Comment on above: Performed By: #### I NSULIN #### [facility] [address] [place], [place] [address] Dr. Carolyn King XR FOOT RT 2Von [...] BANDAR SAENZ Date: 2022-06-07 14:29 Normal [facility] SARS-CoV-2 (COVID-19) RNA LU+probe Ql (Unsp spec) Not detected Normal NOT DETECTED [facility] Comment on above: Result Comment: This test is not yet approved or cleared by the [place] FDA. When there are no FDA-approved or cleared tests available, and other criteria are met, FDA can make tests available under an emergency access mechanism called an Emergency Use Authorization (EUA). The EUA for this test is supported by the [employer] of Health and Human Service's (HHS's) declaration [...] SARS-CoV-2. Performed By: #### I NSULIN #### [facility] [address] [place] [id number] [address] Carolyn King Albumin [Mass/volume] in Ser um or PlasmaOrdered By: Hudson De Leon on 05-23-2022 Albumin [Mass/Vol] 3.9 g/dL 3.2-5.5 [facility] Automated erythrocytes count in urine sediment (number/area)Ordered By: Hudson De Leon on 05-23-2022 RBC Auto (Urine sed) [#/Area] None seen [HPF] 0-4 [facility] Automated leukocytes count i n urine sediment (number/area)Ordered By: Hudson De Leon on 05-23-2022 WBC Auto (Urine sed) [#/Area] None seen [HPF] 0-4 [facility] Basophils Auto (Bld) [#/Vol] Ordered By: Hudson De Leon on 05-23-2022 Basophils (Bld) [#/Vol] 0.0 10*3/uL 0.0-0.2 [facility] Basophils/100 WBC Auto (Bld) Ordered By: Hudson De Leon on 05-23-2022 Basophils/100 WBC (Bld) 0.6 % . [facility] Bilirubin Test strip Ql (U)O rdered By: Hudson De Leon on 05-23-2022 Bilirubin Ql (U) Negative Negative [facility] Color Auto (U)Ordered By: Maykel De Leon on 05-23-2022 Color (U) Yellow Yellow [facility] Creatinine and Glomerular fi ltration rate.predicted panel (S/P/Bld)Ordered By: Hudson De Leon on 05-23-2022 Creatinine [Mass/Vol] 0.92 mg/dL 0.64-1.27 [facility] Eosinophils Auto (Bld) [#/Vo l]Ordered By: Hudson De Leon on 05-23-2022 Eosinophils (Bld) [#/Vol] 0.0 10*3/uL 0.0-0.45 [facility] Eosinophils/100 WBC Auto (Bl d)Ordered By: Hudson De Leon on 05-23-2022 Eosinophils/100 WBC (Bld) 0.9 % . [facility] Erythrocyte distribution wid th Auto (RBC) [Ratio]Ordered By: Hudson De Leon on 05-23-2022 Erythrocyte distribution width (RBC) [Ratio] 13.4 % 12.0-14.8 [facility] Erythrocyte sedimentation ra te by Photometric methodOrdered By: Hudson De Leon on 05-23-2022 ESR Photometric method (Bld) [Velocity] 6 mm/hr 0-19 [facility] Estimated glomerular filtrat ion rate (GFR) non- AmericanOrdered By: Hudson De Leon on 05-23-2022 GFR/1.73 sq M.predicted among non-blacks MDRD (S/P/Bld) [Vol rate/Area] > 60 mL/Min [facility] Globulin Calc (S) [Mass/Vol] Ordered By: Hudson De Leon on 05-23-2022 Globulin (S) [Mass/Vol] 2.8 g/dL [facility] Hematocrit Auto (Bld) [Volum e fraction]Ordered By: Hudson De Leon on 05-23-2022 Hematocrit (Bld) [Volume fraction] 44.5 % 38.8-50.0 [facility] Hemoglobin [Mass/volume] in BloodOrdered By: Hudson De Leon on 05-23-2022 Hemoglobin (Bld) [Mass/Vol] 14.9 g/dL 13.0-17.0 [facility] Ketones Auto test strip (U) [Mass/Vol]Ordered By: Hudson De Leon on 05-23-2022 Ketones (U) [Mass/Vol] Negative Negative [facility] - UrinalysisOrder ed By: Hudson De Leon on 05-23-2022 Hyaline casts LM Ql (Urine sed) None seen [LPF] 0-8 [facility] Leukocytes [#/volume] correc leah for nucleated erythrocytes in Blood by Automated counOrdered By: Hudson De Leon on 05-23-2022 WBC corrected for nucl RBC Auto (Bld) [#/Vol] 5.2 10*3/uL 4.1-10.5 [facility] Lymphocytes Auto (Bld) [#/Vo l]Ordered By: Hudson De Leon on 05-23-2022 Lymphocytes (Bld) [#/Vol] 1.1 10*3/uL 1.00-4.8 [facility] Lymphocytes/100 WBC Auto (Bl d)Ordered By: Hudson De Leon on 05-23-2022 Lymphocytes/100 WBC (Bld) 21.1 % . [facility] MCH Auto (RBC) [Entitic mass ]Ordered By: Hudson De Leon on 05-23-2022 MCH (RBC) [Entitic mass] 31.2 pg 27.5-35.2 [facility] MCHC Auto (RBC) [Mass/Vol]Or dered By: Hudson De Leon on 05-23-2022 MCHC (RBC) [Mass/Vol] 33.5 g/dL 32.5-35.6 [facility] MCV Auto (RBC) [Entitic vol] Ordered By: Hudson De Leon on 05-23-2022 MCV (RBC) [Entitic vol] 93.3 fL 83.5-101 [facility] Monocytes Auto (Bld) [#/Vol] Ordered By: Hudson De Leon on 05-23-2022 Monocytes (Bld) [#/Vol] 0.5 10*3/uL 0.0-0.8 [facility] Monocytes/100 WBC Auto (Bld) Ordered By: Hudson De Leon on 05-23-2022 Monocytes/100 WBC (Bld) 10.3 % . [facility] Neutrophils Auto (Bld) [#/Vo l]Ordered By: Hudson De Leon on 05-23-2022 Neutrophils (Bld) [#/Vol] 3.5 10*3/uL 1.8-7.7 [facility] Neutrophils/100 WBC Auto (Bl d)Ordered By: Hudson De Leon on 05-23-2022 Neutrophils/100 WBC (Bld) 67.1 % . [facility] Nitrite Test strip Ql (U)Ord ered By: Hudson De Leon on 05-23-2022 Nitrite Ql (U) Negative Negative [facility] No Panel InformationOrdered By: Hudson De Leon on 05-23-2022 Estimated GFR () > 60 mL/Min [facility] Comment on above: GFR estimated refere nce range: According to KDOQI guidelines, <60 ml/min/1.73m2 is sufficient to diagnose a patient with chronic kidney disease. Pharmacy Creatinine Clearance (Chem N/A [facility] Nucleated erythrocytes [Pres ence] in Blood by Automated countOrdered By: Hudson De Leon on 05-23-2022 Nucleated RBC Auto Ql (Bld) 0.2 /100{WBC} 0-0.5 [facility] Platelet mean volume Auto (B ld) [Entitic vol]Ordered By: Hudson De Leon on 05-23-2022 Platelet mean volume (Bld) [Entitic vol] 9.4 fL 6.6-10.1 [facility] Platelets Auto (Bld) [#/Vol] Ordered By: Hudson De Leon on 05-23-2022 Platelets (Bld) [#/Vol] 234 10*3/uL 150-450 [facility] Protein Auto test strip (U) [Mass/Vol]Ordered By: Hudson De Leon on 05-23-2022 Protein (U) [Mass/Vol] Negative Negative [facility] Protein [Mass/volume] in Ser um or PlasmaOrdered By: Hudson De Leon on 05-23-2022 Protein [Mass/Vol] 6.7 g/dL 6.1-7.9 [facility] RBC Auto (Bld) [#/Vol]Ordere d By: Hudson De Leon on 05-23-2022 RBC (Bld) [#/Vol] 4.77 10*6/uL 3.90-5.60 [facility] Serum or plasma alanine gates otransferase measurement without P-5'-P (enzymatic activiOrdered By: Hudson De Leon on 05-23-2022 ALT No additional P-5'-P [Catalytic activity/Vol] 27 U/L 10-60 [facility] Serum or plasma albumin/glob ulin mass ratioOrdered By: Hudson De Leon on 05-23-2022 Albumin/Globulin [Mass ratio] 1.4 {ratio} [facility] Serum or plasma alkaline amanda sphatase measurement (enzymatic activity/volume)Ordered By: Hudson De Leon on 05-23-2022 ALP [Catalytic activity/Vol] 90 U/L 32-92 [facility] Serum or plasma anion gap de terminationOrdered By: Hudson De Leon on 05-23-2022 Anion gap [Moles/Vol] 12.3 mmol/L 6.0-15.0 [facility] Serum or plasma aspartate am inotransferase measurement (enzymatic activity/volume)Ordered By: Hudson De Leon on 05-23-2022 AST [Catalytic activity/Vol] 31 U/L 10-42 [facility] Serum or plasma calcium karl urement (mass/volume)Ordered By: Hudson De Leon on 05-23-2022 Calcium [Mass/Vol] 9.1 mg/dL 8.2-10.2 [facility] Serum or plasma chloride reba surement (moles/volume)Ordered By: Hudson De Leon on 05-23-2022 Chloride [Moles/Vol] 102 mmol/L 95-114 [facility] Serum or plasma glucose karl urement (mass/volume)Ordered By: Hudson De Leon on 05-23-2022 Glucose [Mass/Vol] 75 mg/dL 70-100 [facility] Comment on above: ADA recommended refe rence rangeRandom Glucose Reference Range is dependent on time and content of last meal. Glucose of more than 200 mg/dL in a nonstressed, ambulatory subject supports the diagnosis of Diabetes Mellitus. Serum or plasma potassium me asurement (moles/volume)Ordered By: Hudson De Leon on 05-23-2022 Potassium [Moles/Vol] 4.0 mmol/L 3.5-5.1 [facility] Serum or plasma sodium measu rement (moles/volume)Ordered By: Hudson De Leon on 05-23-2022 Sodium [Moles/Vol] 137 mmol/L 136-146 [facility] Serum or plasma total biliru bin measurement (mass/volume)Ordered By: Hudson De Leon on 05-23-2022 Bilirubin [Mass/Vol] 0.6 mg/dL 0.3-1.2 [facility] Serum or plasma total carbon dioxide measurement (moles/volume)Ordered By: Hudson De Leon on 05-23-2022 CO2 [Moles/Vol] 26.7 mmol/L 22.0-30.0 [facility] Serum or plasma urea nitroge n measurement (mass/volume)Ordered By: Hudson De Leon on 05-23-2022 Urea nitrogen [Mass/Vol] 11 mg/dL 9-23 [facility] Specific gravity Auto test s trip (U) [Rel density]Ordered By: Hudson De Leon on 05-23-2022 Specific gravity (U) [Rel density] 1.014 1.001-1.03 0 [facility] Squamous epithelial cells de tection in urine sediment by light microscopyOrdered By: Hudson De Leon on 05-23-2022 Epithelial cells.squamous LM Ql (Urine sed) None seen [HPF] 0-2 [facility] Urine bacteria detection by automated methodOrdered By: Hudson De Leon on 05-23-2022 Bacteria Auto Ql (U) None seen None Seen [facility] Urine clarity by refractomet ry automatedOrdered By: Hudson De Leon on 05-23-2022 Clarity Refractometry automated (U) Clear Clear [facility] Urine glucose measurement by automated test strip (mass/volume)Ordered By: Hudson De Leon on 05-23-2022 Glucose Auto test strip (U) [Mass/Vol] Normal mg/dL Normal [facility] Urine hemoglobin detection b y automated test stripOrdered By: Hudson De Leon on 05-23-2022 Hemoglobin Auto test strip Ql (U) Negative Negative [facility] Urine leukocyte esterase det ection by automated test stripOrdered By: Hudson De Leon on 05-23-2022 Leukocyte esterase Auto test strip Ql (U) Negative Negative [facility] Urobilinogen Auto test strip (U) [Mass/Vol]Ordered By: Hudson De Leon on 05-23-2022 Urobilinogen (U) [Mass/Vol] Normal mg/dL Normal [facility] WBC Auto (Bld) [#/Vol]Ordere d By: Hudson De Leon on 05-23-2022 WBC (Bld) [#/Vol] 5.2 10*3/uL 4.1-10.5 [facility] pH Auto test strip (U)Ordere d By: Hudson De Leon on 05-23-2022 pH (U) 5.5 [pH] 5.0-9.0 [facility] BN SPINE, CERVICAL, 2 OR 3 V IEWSon 05-02-2022 BN SPINE, CERVICAL, 2 OR 3 VIEWS Patient Name: JAY CARR STUDY: SPINE, CERVICAL, 2 OR 3 VIEWS; 05/02/2022 9:46 am INDICATION: cervical post op 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 COMPARISON: 08/03/2021 ACCESSION NUMBER(S): [id number] ORDERING CLINICIAN: KENTON LAWSON FINDINGS: Two views of the cervical spine. Patient is status post anterior cervical discectomy and fusion from C5-C7. No hardware complication. No acute fracture. No focal subluxation. Mild multilevel degenerative changes. IMPRESSION: Postsurgical changes status post ACDF from C5-C7. No hardware complication. Mild multilevel spondylosis. Electronically signed by: FRANCISCO FOLEY MD Normal [facility] BN SPINE, LUMBOSACRAL; 2 OR 3 VIEWSon 05-02-2022 BN SPINE, LUMBOSACRAL; 2 OR 3 VIEWS Patient Name: JAY CARR STUDY: SPINE, LUMBOSACRAL; 2 OR 3 VIEWS; 05/02/2022 9:46 am INDICATION: AP/LAT M54.50: Lumbar back pain M48.062: Lumbar stenosis with neurogenic claudication. COMPARISON: 01/29/2022 ACCESSION NUMBER(S): [id number] ORDERING CLINICIAN: KENTON LAWSON FINDINGS: Two views [...] spondylosis. Electronically signed by: FRANCISCO FOLEY MD Normal [facility] Established Visit (Orthopaed ic Surgery)on 05-02-2022 Established [...] Present Illness Jay is a pleasant 62-year-old xoxza-xsvk-lvpzwyta male who presents today with his for [...] by phys (more content not included)... [facility] 05-02-2022 XR Cervical spine 3 Views Normal [facility] DO Work Phone: XR Lumbar spine AP and Lateral Normal [facility] DO Work Phone: INSULINon 03-29-2022 Insulin 14.5 uIU/mL Normal 2.6-24.9 [facility] Comment on above: Performed By: #### I NSULIN #### [facility] [address] [place] [address] Dr. Carolyn King CBC AUTO DIFFon 03-28-2022 BASO # 0.0 103/ul Normal 0.0-0.1 [facility] Comment on above: Performed By: #### C BC #### [facility] [address] [place] [address] Dr. Carolyn King Basophils/100 WBC (Bld) 0.6 % Normal 0.2-2.0 [facility] Comment on above: Performed By: #### C BC #### [facility] [address] [place] [address] Dr. Carolyn King EO # 0.1 103/ul Normal 0.0-0.7 [facility] Comment on above: Performed By: #### C BC #### [facility] [address] [place] [address] Dr. Carolyn King Eosinophils/100 WBC (Bld) 1.6 % Normal 0.9-7.0 [facility] Comment on above: Performed By: #### C BC #### [facility] [address] [place] [address] Dr. Carolyn King Erythrocyte distribution width (RBC) [Ratio] 13.2 % Normal 11.0-15.0 [facility] Comment on above: Performed By: #### C BC #### [facility] [address] [place] [address] Dr. Carolyn King Hematocrit (Bld) [Volume fraction] 44.5 % Normal 42.0-54.0 [facility] Comment on above: Performed By: #### C BC #### [facility] [address] [place] [address] Dr. Carolyn King Hemoglobin (Bld) [Mass/Vol] 15.0 g/dL Normal 14.0-18.0 [facility] Comment on above: Performed By: #### C BC #### [facility] [address] [place] [address] Dr. Carolyn King IG # 0.01 10e3/ul Normal 0.00-0.03 [facility] Comment on above: Performed By: #### C BC #### [facility] [address] [place] [address] Dr. Carolyn King IG % 0.2 % Normal 0.0-0.5 [facility] Comment on above: Performed By: #### C BC #### [facility] [address] [place] [address] Dr. Carolyn King LYMPH # 1.0 103/ul Critically low 1.2-3.8 [facility] Comment on above: Performed By: #### C BC #### [facility] [address] [place] [address] Dr. Carolyn King Lymphocytes/100 WBC (Bld) 15.8 % Critically low 20.5-60.0 [facility] Comment on above: Performed By: #### C BC #### [facility] [address] [place] [address] Dr. Carolyn King MANUAL DIFF REQ NO Normal [facility] Comment on above: Performed By: #### C BC #### [facility] [address] [place] [address] Dr. Carolyn King MCH (RBC) [Entitic mass] 31.1 pg Normal 25.9-34.0 [facility] Comment on above: Performed By: #### C BC #### [facility] [address] [place] [address] Dr. Carolyn King MCHC (RBC) [Mass/Vol] 33.7 g/dL Normal 29.9-35.2 [facility] Comment on above: Performed By: #### C BC #### [facility] [address] [place] [address] Dr. Carolyn King MCV (RBC) [Entitic vol] 92.3 fL Normal 80.0-94.0 [facility] Comment on above: Performed By: #### C BC #### [facility] [address] [place] [address] Dr. Carolyn King MONO # 0.7 103/ul Normal 0.3-0.8 [facility] Comment on above: Performed By: #### C BC #### [facility] [address] [place] [address] Dr. Carolyn King Monocytes/100 WBC (Bld) 10.7 % Normal 1.7-12.0 [facility] Comment on above: Performed By: #### C BC #### [facility] [address] [place] [address] Dr. Carolyn King NEUT # 4.4 103/ul Normal 1.4-6.5 [facility] Comment on above: Performed By: #### C BC #### [facility] [address] [place] [address] Dr. Carolyn King Neutrophils/100 WBC (Bld) 71.1 % Normal 43.0-75.0 [facility] Comment on above: Performed By: #### C BC #### [facility] [address] [place] [address] Dr. Carolyn King Platelet mean volume (Bld) [Entitic vol] 10.2 fL Normal 9.5-13.5 [facility] Comment on above: Performed By: #### C BC #### [facility] [address] [place] [address] Dr. Carolyn King PLT 242 103/ul Normal 150-450 [facility] Comment on above: Performed By: #### C BC #### [facility] [address] [place] [address] Dr. Carolyn King RBC 4.82 106/ul Normal 4.70-6.10 [facility] Comment on above: Performed By: #### C BC #### [facility] [address] [place] [address] Dr. Carolyn King WBC 6.2 103/ul Normal 4.0-11.0 [facility] Comment on above: Performed By: #### C BC #### [facility] [address] [place] [address] Dr. Carolyn King FREE THYROXINE INDEX T7on FTI 2.55 Normal 1.30-4.50 [facility] Comment on above: Performed By: #### U ALLEN, TSH, T7, LIPID, CMP #### [facility] [address] [place] [address] [address] Carolyn King T3U 30.0 % Critically low 33.0-40.0 [facility] Comment on above: Performed By: #### U ALLEN, TSH, T7, LIPID, CMP #### [facility] [address] [place] [address] [address] Carolyn King T4 [Mass/Vol] 8.50 ug/dL Normal 4.50-12.10 [facility] Comment on above: Performed By: #### U ALLEN, TSH, T7, LIPID, CMP #### [facility] [address] [place] [address] Dr. Carolyn King GLYCOHEMOGLOBIN A1Con 2021 ADA RECOMMENDATION SEE BELOW Normal [facility] Comment on above: Result Comment: ADA RECOMMENDED LIMIT 4.0 - 6.0 ADA THERAPEUTIC TARGET < 7.0 ACTION SUGGESTED > 7.0 Performed By: #### A 1C #### [facility] [address] [place] [address] Dr. Carolyn King Glucose [Mass/Vol] 103 mg/dL Normal 74-106 [facility] Comment on above: Performed By: #### A 1C #### [facility] [address] [place] [address] Dr. Carolyn King Performed By: #### U ALLEN, TSH, T7, LIPID, CMP #### [facility] [address] [place] [address] Dr. Carolyn King HbA1c (Bld) [Mass fraction] 5.2 % Normal 4.5-6.2 [facility] Comment on above: Performed By: #### A 1C #### [facility] [address] [place] [address] Dr. Carolyn King LIPID PROFILEon 03-28-2022 CHOL-HDL RATIO NORM SEE BELOW Normal [facility] Comment on above: Result Comment: 3.3 - 4.4 LOW RISK 4.4 - 7.1 AVERAGE RISK 7.1 - 11.0 MODERATE RISK >11.0 HIGH RISK Performed By: #### U ALLEN, TSH, T7, LIPID, CMP #### [facility] [address] [place] [address] [address] Carolyn King Cholesterol [Mass/Vol] 157 mg/dL Normal <=200 Th e [facility] Comment on above: Performed By: #### U ALLEN, TSH, T7, LIPID, CMP #### [facility] [address] [place] [address] [address] Carolyn King Cholesterol in HDL [Mass/Vol] 49 mg/dL Normal 40-60 [facility] Comment on above: Performed By: #### U ALLEN, TSH, T7, LIPID, CMP #### [facility] [address] [place] [address] [address] Carolyn King Cholesterol in LDL [Mass/Vol] 85.6 mg/dL Normal [facility] Comment on above: Performed By: #### U ALLEN, TSH, T7, LIPID, CMP #### [facility] [address] [place] [address] [address] Carolyn King Cholesterol.total/Chol esterol in HDL [Mass ratio] 3.2 {ratio} Normal [facility] Comment on above: Performed By: #### U ALLEN, TSH, T7, LIPID, CMP #### [facility] [address] [place] [address] [address] Carolyn King HDL NORMAL > or = 60 mg/dl - LO W CARDIOVASCULAR RISK <40 mg/dl - HIGH CARDIOVASCULAR RISK Normal [facility] Comment on above: Performed By: #### U ALLEN, TSH, T7, LIPID, CMP #### [facility] [address] [place] [address] [address] Carolyn King LDL CALC NORMAL SEE BELOW Normal [facility] Comment on above: Result Comment: <100 mg/dl OPTIMAL 100 - 129 mg/dl NEAR OR ABOVE OPTIMAL 130 - 159 mg/dl BORDERLINE HIGH 160 - 189 mg/dl HIGH >190 mg/dl VERY HIGH Performed By: #### U ALLEN, TSH, T7, LIPID, CMP #### [facility] [address] [place] [address] [address] Carolyn King Triglyceride [Mass/Vol] 112 mg/dL Normal <=150 [facility] Comment on above: Performed By: #### U ALLEN, TSH, T7, LIPID, CMP #### [facility] [address] [place] [address] [address] Carolyn King VLDL CALC 22.4 mg/dL Normal [facility] Comment on above: Performed By: #### U ALLEN, TSH, T7, LIPID, CMP #### [facility] [address] [place] [address] [address] Carolyn King PROF 14(COMP METB)on 022 Albumin [Mass/Vol] 3.9 g/dL Normal 3.4-5.0 [facility] Comment on above: Performed By: #### U ALLEN, TSH, T7, LIPID, CMP #### [facility] [address] [place] [address] Dr. Carolyn King Albumin/Globulin [Mass ratio] 1.1 {ratio} Normal [facility] Comment on above: Performed By: #### U ALLEN, TSH, T7, LIPID, CMP #### [facility] [address] [place] [address] Dr. Carolyn King ALP [Catalytic activity/Vol] 108 U/L Normal 46-116 [facility] Comment on above: Performed By: #### U ALLEN, TSH, T7, LIPID, CMP #### [facility] [address] [place] [address] Dr. Carolyn King ALT [Catalytic activity/Vol] 28 U/L Normal 16-63 [facility] Comment on above: Performed By: #### U ALLEN, TSH, T7, LIPID, CMP #### [facility] [address] [place] [address] [address] Carolyn King Anion gap [Moles/Vol] 6.6 mmol/L Normal [facility] Comment on above: Performed By: #### U ALLEN, TSH, T7, LIPID, CMP #### [facility] [address] [place] [address] Dr. Carolyn King AST [Catalytic activity/Vol] 22 U/L Normal 15-37 [facility] Comment on above: Performed By: #### U ALLEN, TSH, T7, LIPID, CMP #### [facility] [address] [place] [address] Dr. Carolyn King Bilirubin [Mass/Vol] 0.6 mg/dL Normal 0.2-1.0 [facility] Comment on above: Performed By: #### U ALLEN, TSH, T7, LIPID, CMP #### [facility] [address] [place] [address] Dr. Carolyn King Calcium [Mass/Vol] 8.7 mg/dL Normal 8.5-10.1 [facility] Comment on above: Performed By: #### U ALLEN, TSH, T7, LIPID, CMP #### [facility] [address] [place] [address] Dr. Carolyn King Chloride [Moles/Vol] 105 mmol/L Normal 98-107 [facility] Comment on above: Performed By: #### U ALLEN, TSH, T7, LIPID, CMP #### [facility] [address] [place] [address] Dr. Carolyn King CO2 [Moles/Vol] 30.6 mmol/L Normal 21.0-32.0 [facility] Comment on above: Performed By: #### U ALLEN, TSH, T7, LIPID, CMP #### [facility] [address] [place] [address] Dr. Carolyn King Creatinine [Mass/Vol] 0.96 mg/dL Normal 0.70-1.30 [facility] Comment on above: Performed By: #### U ALLEN, TSH, T7, LIPID, CMP #### [facility] [address] [place] [address] Dr. Carolyn Kign EGFR-AF VIETNAMESE >60 Normal >=60 [facility] Comment on above: Performed By: #### U ALLEN, TSH, T7, LIPID, CMP #### [facility] [address] [place] [address] Dr. Carolyn King EGFR-NON AF VIETNAMESE >60 Normal >=60 [facility] Comment on above: Performed By: #### U ALLEN, TSH, T7, LIPID, CMP #### [facility] [address] [place] [address] Dr. Carolyn King Globulin (S) [Mass/Vol] 3.5 g/dL Normal [facility] Comment on above: Performed By: #### U ALLEN, TSH, T7, LIPID, CMP #### [facility] [address] [place] [address] Dr. Carolyn King Potassium [Moles/Vol] 4.2 mmol/L Normal 3.5-5.1 [facility] Comment on above: Performed By: #### U ALLEN, TSH, T7, LIPID, CMP #### [facility] [address] [address] [address] Carolyn King Protein [Mass/Vol] 7.4 g/dL Normal 6.4-8.2 [facility] Comment on above: Performed By: #### U ALLEN, TSH, T7, LIPID, CMP #### [facility] [address] [place] [address] Dr. Carolyn King Sodium [Moles/Vol] 138 mmol/L Normal 136-145 [facility] Comment on above: Performed By: #### U ALLEN, TSH, T7, LIPID, CMP #### [facility] [address] [address] [address] Carolyn King Urea nitrogen [Mass/Vol] 16.0 mg/dL Normal 7.0-18.0 [facility] Comment on above: Performed By: #### U ALLEN, TSH, T7, LIPID, CMP #### [facility] [address] [address] [address] Carolyn King Urea nitrogen/Creatinine [Mass ratio] 16.7 mg/mg Normal [facility] Comment on above: Performed By: #### U ALLEN, TSH, T7, LIPID, CMP #### [facility] [address] [address] [address] Carolyn King TSHon 03-28-2022 TSH 1.986 uIU/mL Normal 0.358-3.74 0 [facility] Comment on above: Performed By: #### U ALLEN, TSH, T7, LIPID, CMP #### [facility] [address] [place] [address] Dr. Carolyn King URIC ACID SERUMon 03-28-2022 Urate [Mass/Vol] 5.5 mg/dL Normal 3.5-7.2 [facility] Comment on above: Performed By: #### U ALLEN, TSH, T7, LIPID, CMP #### [facility] [address] [address] [address] Carolyn King Ammonium urate crystals dete ction in stone by infrared spectroscopyOrdered By: Shun Machado on 02-15-2022 Ammonium urate crystals Infrared spectroscopy Ql (Stone) N/A [facility] Basophils Auto (Bld) [#/Vol] Ordered By: Steve Pina on 02-15-2022 Basophils (Bld) [#/Vol] 0.0 10*3/uL 0.0-0.2 [facility] Basophils/100 WBC Auto (Bld) Ordered By: Steve Pina on 02-15-2022 Basophils/100 WBC (Bld) 0.9 % . [facility] Blood hemoglobin measurement (mass/volume)Ordered By: Steve Pina on 02-15-2022 Hemoglobin (Bld) [Mass/Vol] 14.2 g/dL 13.0-17.0 [facility] Blood leukocytes automated c ount (number/volume)Ordered By: Steve Pina on 02-15-2022 WBC (Bld) [#/Vol] 4.5 10*3/uL 4.5-11.0 [facility] Calcium bilirubinate measure mentOrdered By: Shun Machado on 02-15-2022 Calcium bilirubinate (Stone) [Mass fraction] N/A [facility] Calcium carbonate measuremen tOrdered By: Shun Machado on 02-15-2022 Calcium carbonate (Stone) [Mass fraction] N/A [facility] Calcium hydrogen phosphate d ihydrate/Total in StoneOrdered By: Shun Machado on 02-15-2022 Calcium hydrogen phosphate dihydrate (Stone) [Mass fraction] N/A [facility] Calcium oxalate dihydrate cr ystals detection in stone by infrared spectroscopyOrdered By: Shun Machado on 02-15-2022 Calcium oxalate dihydrate crystals Infrared spectroscopy Ql (Stone) 10 % . [facility] Calcium oxalate monohydrate/ Total in StoneOrdered By: Shun Machado on 02-15-2022 Calcium oxalate monohydrate (Stone) [Mass fraction] 90 % . [facility] Calcium phosphate measuremen tOrdered By: Shun Machado on 02-15-2022 Calcium phosphate (Stone) [Mass fraction] N/A [facility] Calculus analysis interpreta tion in stoneOrdered By: Shun Machado on 02-15-2022 Calculus analysis [Interp] N/A [facility] Calculus analysis [Interp] See comment . [facility] Comment on above: Physician questions regarding Calculi Analysis contact [employer] at: [phone]. Calculi report will follow via computer, mail or run lead delivery. Calculus analysis with calcu iggy photography interpretation in stoneOrdered By: Shun Machado on 02-15-2022 Calculus analysis with calculus photography [Interp] See comment . [facility] Comment on above: Photograph will foll ow under a separate cover Cellular material measuremen t in stone by estimated (mass/mass)Ordered By: Shun Machado on 02-15-2022 Cellular material Est (Stone) [Mass/Mass] N/A [facility] Cholesterol/Total in StoneOr dered By: Shun Machado on 02-15-2022 Cholesterol (Stone) [Mass fraction] N/A [facility] Composition of stoneOrdered By: Shun Machado on 02-15-2022 Composition Nom (Stone) See comment . [facility] Comment on above: Percentage (Represen ts the % composition) Creatinine and Glomerular fi ltration rate.predicted panel (S/P/Bld)Ordered By: Steve Pina on 02-15-2022 Creatinine [Mass/Vol] 0.96 mg/dL 0.64-1.27 [facility] Cystine measurementOrdered B y: Shun Machado on 02-15-2022 Cystine (Unsp spec) [Moles/Vol] N/A [facility] Determination of color of ca lculusOrdered By: Shun Machado on 02-15-2022 Color (Stone) Brown . [facility] Eosinophils Auto (Bld) [#/Vo l]Ordered By: Steve Pina on 02-15-2022 Eosinophils (Bld) [#/Vol] 0.1 10*3/uL 0.0-0.45 [facility] Eosinophils/100 WBC Auto (Bl d)Ordered By: Steve Pina on 02-15-2022 Eosinophils/100 WBC (Bld) 2.7 % . [facility] Erythrocyte distribution wid th Auto (RBC) [Ratio]Ordered By: Steve Pina on 02-15-2022 Erythrocyte distribution width (RBC) [Ratio] 14.0 % 12.0-14.8 [facility] Estimated glomerular filtrat ion rate (GFR) non- AmericanOrdered By: Steve Pina on 02-15-2022 GFR/1.73 sq M.predicted among non-blacks MDRD (S/P/Bld) [Vol rate/Area] > 60 mL/Min [facility] Hematocrit Auto (Bld) [Volum e fraction]Ordered By: Steve Pina on 02-15-2022 Hematocrit (Bld) [Volume fraction] 42.2 % 38.8-50.0 [facility] Hydroxyapatite [Energy Diffe rence] in 24 hour UrineOrdered By: Shun Machado on 02-15-2022 Hydroxyapatite (24H U) [Energy diff] N/A [facility] - Hematology and Cell countsOrdered By: Steve Pina on 02-15-2022 Nucleated RBC/100 WBC (Bld) [Ratio] 0.0 % 0-0.5 [facility] Lymphocytes Auto (Bld) [#/Vo l]Ordered By: Steve Pina on 02-15-2022 Lymphocytes (Bld) [#/Vol] 1.0 10*3/uL 1.00-4.8 [facility] Lymphocytes/100 WBC Auto (Bl d)Ordered By: Steve Pina on 02-15-2022 Lymphocytes/100 WBC (Bld) 21.3 % . [facility] MCH Auto (RBC) [Entitic mass ]Ordered By: Steve Pina on 02-15-2022 MCH (RBC) [Entitic mass] 31.0 pg 27.5-35.2 [facility] MCHC Auto (RBC) [Mass/Vol]Or dered By: Steve Pina on 02-15-2022 MCHC (RBC) [Mass/Vol] 33.7 g/dL 32.5-35.6 [facility] MCV Auto (RBC) [Entitic vol] Ordered By: Steve Pina on 02-15-2022 MCV (RBC) [Entitic vol] 92.1 fL 83.5-101 [facility] Measurement of proportion of calculus composed of dried blood (mass/mass)Ordered By: Shun Machado on 02-15-2022 Blood.dried (Stone) [Mass fraction] N/A [facility] Monocytes Auto (Bld) [#/Vol] Ordered By: Steve Pina on 02-15-2022 Monocytes (Bld) [#/Vol] 0.5 10*3/uL 0.0-0.8 [facility] Monocytes/100 WBC Auto (Bld) Ordered By: Steve Pina on 02-15-2022 Monocytes/100 WBC (Bld) 10.1 % . [facility] Neutrophils Auto (Bld) [#/Vo l]Ordered By: Steve Pina on 02-15-2022 Neutrophils (Bld) [#/Vol] 3.0 10*3/uL 1.8-7.7 [facility] Neutrophils/100 WBC Auto (Bl d)Ordered By: Steve Pina on 02-15-2022 Neutrophils/100 WBC (Bld) 65.0 % . [facility] Newberyite/Total in StoneOrd ered By: Shun Machado on 02-15-2022 Newberyite (Stone) [Mass fraction] N/A [facility] No Panel InformationOrdered By: Shun Machado on 02-15-2022 Stone 2,8 Dihydroxyadenine N/A [facility] Stone Analysis Disclaimer See comment . [facility] Comment on above: This test was develo ped and its performance characteristics determined by [employer]. It has not been cleared or approved by the Food and Drug Administration. Performed at: [facility] [address] [place] [address] Dr Arndt, [place], [place] [id number] Sewage Screen Operator: Riley Parikh PhD, Phone: [phone] Stone Bilirubinate N/A [facility] Stone Calcium Palmitate N/A [facility] Stone Calcium Stearate N/A [facility] Stone Carbonate Apatite N/A [facility] Stone Drug or Metabolite N/A [facility] Stone Other Constituent N/A [facility] Stone Xanthine N/A [facility] No Panel InformationOrdered By: Steve Pina on 02-15-2022 Estimated GFR () > 60 mL/Min [facility] Comment on above: GFR estimated refere nce range: According to KDOQI guidelines, <60 ml/min/1.73m2 is sufficient to diagnose a patient with chronic kidney disease. Pharmacy Creatinine Clearance (Chem 93.62 [facility] Platelet mean volume Auto (B ld) [Entitic vol]Ordered By: Steve Pina on 02-15-2022 Platelet mean volume (Bld) [Entitic vol] 7.9 fL 6.6-10.1 [facility] Platelets Auto (Bld) [#/Vol] Ordered By: Steve Pina on 02-15-2022 Platelets (Bld) [#/Vol] 202 10*3/uL 150-450 [facility] RBC Auto (Bld) [#/Vol]Ordere d By: Steve Pina on 02-15-2022 RBC (Bld) [#/Vol] 4.58 10*6/uL 3.90-5.60 [facility] Serum or plasma calcium karl urement (mass/volume)Ordered By: Steve Pina on 02-15-2022 Calcium [Mass/Vol] 9.0 mg/dL 8.2-10.2 [facility] Serum or plasma chloride reba surement (moles/volume)Ordered By: Steve Pina on 02-15-2022 Chloride [Moles/Vol] 102 mmol/L 95-114 [facility] Serum or plasma glucose karl urement (mass/volume)Ordered By: Steve Pina on 02-15-2022 Glucose [Mass/Vol] 108 mg/dL 70-100 [facility] Comment on above: ADA recommended refe rence range Random Glucose Reference Range is dependent on time and content of last meal. Glucose of more than 200 mg/dL in a nonstressed, ambulatory subject supports the diagnosis of Diabetes Mellitus. Serum or plasma potassium me asurement (moles/volume)Ordered By: Steve Pina on 02-15-2022 Potassium [Moles/Vol] 3.9 mmol/L 3.5-5.1 [facility] Serum or plasma sodium measu rement (moles/volume)Ordered By: Steve Pina on 02-15-2022 Sodium [Moles/Vol] 137 mmol/L 136-146 [facility] Serum or plasma total carbon dioxide measurement (moles/volume)Ordered By: Steve Pina on 02-15-2022 CO2 [Moles/Vol] 28.0 mmol/L 22.0-30.0 [facility] Serum or plasma urea nitroge n measurement (mass/volume)Ordered By: Steve Pina on 02-15-2022 Urea nitrogen [Mass/Vol] 11 mg/dL 9- [facility] Size [Entitic volume] of Sto neOrdered By: Shun Machado on 02-15-2022 Size (Stone) [Entitic vol] 5x3 mm . [facility] Comment on above: Multiple pieces rece ived. Dimensions of the largest piece reported. Sodium urate crystals detect ion in stone by infrared spectroscopyOrdered By: Shun Machado on 02-15-2022 Sodium urate crystals Infrared spectroscopy Ql (Stone) N/A [facility] Specimen source subject [Typ e]Ordered By: Shun Machado on 02-15-2022 Specimen source subject Nom See comment . [facility] Comment on above: Right Ureter Triamterene measurement in c alculusOrdered By: Shun Machado on 02-15-2022 Triamterene (Stone) [Mass fraction] N/A [facility] Triple phosphate/Total in St oneOrdered By: Shun Machado on 02-15-2022 Triple phosphate (Stone) [Mass fraction] N/A [facility] Uric acid dihydrate crystals detection in stone by infrared spectroscopyOrdered By: Shun Machado on 02-15-2022 Urate dihydrate crystals Infrared spectroscopy Ql (Stone) N/A [facility] XR ANKLE RT MIN 3 VIEWSon [...] LAURY ZEPEDA Date: 2022-02-15 06:59 Normal [facility] COVID-19 Positive/NegativeOr dered By: Shun Machado on 02-13-2022 SARS-CoV-2 (COVID-19) N gene LU+probe Ql (Resp) Negative Negative [facility] Comment on above: Testing for SARS-CoV -2 by RT-PCR This test was developed and its performance characteristics determined by [employer] and validated at the [facility]. This test has not been FDA [...] claudication. COMPARISON: November 08, 2021 ACCESSION NUMBER(S): [id number] ORDERING CLINICIAN: KENTON LAWSON FINDINGS: Status post anterior and posterior fusion L3-L5 unchanged prior examination with disc space replacement and posterior pedicle screws. Alignment normal. Upper lumbar degenerative changes greatest at L2-3 again noted. IMPRESSION: Satisfactory and unchanged appearance status post L3-L5 fusion. Electronically signed by: JENI SNYDER MD Normal [facility] Established Visit (Orthopaed ic Surgery)on 01-29-2022 Established Visit (Orthopaedic Surgery) Diagnoses/Problems Assessed Lumbar stenosis with neurogenic claudication (724.03) (M48.062) Orders Lumbar stenosis with neurogenic claudication Xray BN Spine, Lumbosacral; 2 or 3 Views; Status:Resulted - Preliminary; Done: 29Jan2022 10:34AM Radiologist to Determine Optimal Study : [...] Xray BN Spine, Lumbosacral; 2 or 3 [id number] 10:34AKenton Zuleta Test NameResultFlagReference Xray Lumbar Spine AP + [...] BANDAR SAENZ Date: 2022-01-29 21:07 Normal [facility] Activated partial thrombopla stin time (aPTT) in platelet poor plasma by coagulation aOrdered By: Shun Machado on 01-17-2022 aPTT Coag (PPP) [Time] 36.3 s 25.1-36.5 [facility] COVID-19 Positive/NegativeOr dered By: Shun Machado on 01-17-2022 SARS-CoV-2 (COVID-19) N gene LU+probe Ql (Resp) Negative Negative [facility] Comment on above: Testing for SARS-CoV -2 by RT-PCR This test was developed and its performance characteristics determined by [employer] and validated at the [facility]. This test has not been FDA [...] PT Coag (PPP) [Time] 11.9 s 9.0-12.9 [facility] Platelet poor plasma interna tional normalized ratio (INR) by coagulation assay (relatOrdered By: Shun Machado on 01-17-2022 INR Coag (PPP) [Relative time] 1.1 {INR} [facility] Comment on above: INR Therapeutic Rang [...] BANDAR SAENZ Date: 2022-01-11 16:29 Normal [facility] CBC AUTO DIFFon 01-09-2022 BASO # 0.0 103/ul Normal 0.0-0.1 [facility] Comment on above: Performed By: #### C BC #### [facility] [address] [address] [address] Carolyn King Basophils/100 WBC (Bld) 0.4 % Normal 0.2-2.0 [facility] Comment on above: Performed By: #### C BC #### [facility] [address] [place] [address] Dr. Carolyn King EO # 0.0 103/ul Normal 0.0-0.7 [facility] Comment on above: Performed By: #### C BC #### [facility] [address] [address] [address] Carolyn King Eosinophils/100 WBC (Bld) 0.3 % Critically low 0.9-7.0 [facility] Comment on above: Performed By: #### C BC #### [facility] [address] [place] [address] Dr. Carolyn King Erythrocyte distribution width (RBC) [Ratio] 12.6 % Normal 11.0-15.0 [facility] Comment on above: Performed By: #### C BC #### [facility] [address] [place] [address] Dr. Carolyn King Hematocrit (Bld) [Volume fraction] 45.6 % Normal 42.0-54.0 [facility] Comment on above: Performed By: #### C BC #### [facility] [address] [address] [address] Carolyn King Hemoglobin (Bld) [Mass/Vol] 15.6 g/dL Normal 14.0-18.0 [facility] Comment on above: Performed By: #### C BC #### [facility] [address] [place] [address] Dr. Carolyn King IG # 0.02 10e3/ul Normal 0.00-0.03 [facility] Comment on above: Performed By: #### C BC #### [facility] [address] [place] [address] Dr. Carolyn King IG % 0.3 % Normal 0.0-0.5 [facility] Comment on above: Performed By: #### C BC #### [facility] [address] [place] [address] Dr. Carolyn King LYMPH # 0.8 103/ul Critically low 1.2-3.8 [facility] Comment on above: Performed By: #### C BC #### [facility] [address] [place] [address] Dr. Carolyn King Lymphocytes/100 WBC (Bld) 11.4 % Critically low 20.5-60.0 [facility] Comment on above: Performed By: #### C BC #### [facility] [address] [place] [address] Dr. Carolyn King MANUAL DIFF REQ NO Normal [facility] Comment on above: Performed By: #### C BC #### [facility] [address] [place] [address] Dr. Carolyn King MCH (RBC) [Entitic mass] 30.8 pg Normal 25.9-34.0 [facility] Comment on above: Performed By: #### C BC #### [facility] [address] [place] [address] Dr. Carolyn King MCHC (RBC) [Mass/Vol] 34.2 g/dL Normal 29.9-35.2 [facility] Comment on above: Performed By: #### C BC #### [facility] [address] [place] [address] Dr. Carolyn King MCV (RBC) [Entitic vol] 89.9 fL Normal 80.0-94.0 [facility] Comment on above: Performed By: #### C BC #### [facility] [address] [place] [address] Dr. Carolyn King MONO # 0.6 103/ul Normal 0.3-0.8 [facility] Comment on above: Performed By: #### C BC #### [facility] [address] [place] [address] Dr. Carolyn King Monocytes/100 WBC (Bld) 8.5 % Normal 1.7-12.0 [facility] Comment on above: Performed By: #### C BC #### [facility] [address] [place] [address] Dr. Carolyn King NEUT # 5.8 103/ul Normal 1.4-6.5 [facility] Comment on above: Performed By: #### C BC #### [facility] [address] [place] [address] Dr. Carolyn King Neutrophils/100 WBC (Bld) 79.1 % Critically high 43.0-75.0 [facility] Comment on above: Performed By: #### C BC #### [facility] [address] [place] [address] Dr. Carolyn King Platelet mean volume (Bld) [Entitic vol] 10.7 fL Normal 9.5-13.5 [facility] Comment on above: Performed By: #### C BC #### [facility] [address] [place] [address] Dr. Carolyn King PLT 235 103/ul Normal 150-450 [facility] Comment on above: Performed By: #### C BC #### [facility] [address] [place] [address] Dr. Carolyn King RBC 5.07 106/ul Normal 4.70-6.10 [facility] Comment on above: Performed By: #### C BC #### [facility] [address] [place] [address] Dr. Carolyn King WBC 7.4 103/ul Normal 4.0-11.0 [facility] Comment on above: Performed By: #### C BC #### [facility] [address] [place] [address] ABD/PELVIS WO CONon 07-19 -2022 CT ABD/PELVIS WO CON EXAMINATION: CT ABD/PELVIS [...] LAURY ZEPEDA Date: 2022-01-09 13:38 Normal [facility] ER URINE PROFILEon 2 Bilirubin Ql (U) Negative Normal NEGATIVE [facility] Comment on above: Performed By: #### I NSULIN #### [facility] [address] [place] [address] Dr. Carolyn King Clarity (U) CLEAR Normal CLEAR [facility] Comment on above: Performed By: #### I NSULIN #### [facility] [address] [address] [address] Carolyn King Color (U) LT. YELLOW Normal YELLOW [facility] Comment on above: Performed By: #### I NSULIN #### [facility] [address] [address] [address] Carolyn BUNN A micrscopic examina tion will be performed if indicated. Normal [facility] Comment on above: Performed By: #### I NSULIN #### [facility] [address] [address] [address] Carolyn King Glucose Ql (U) Negative Normal NEGATIVE [facility] Comment on above: Performed By: #### I NSULIN #### [facility] [address] [place] [address] Dr. Carolyn King Hemoglobin Ql (U) MODERATE Abnormal NEGATIVE [facility] Comment on above: Performed By: #### I NSULIN #### [facility] [address] [place] [address] Dr. Carolyn King Ketones Ql (U) Negative Normal NEGATIVE [facility] [facility] Comment on above: Performed By: #### I NSULIN #### [facility] [address] [place] [address] Dr. Carolyn King LEUKOCYTES Negative Normal NEGATIVE [facility] Comment on above: Performed By: #### I NSULIN #### [facility] [address] [place] [address] Dr. Carolyn King Nitrite Ql (U) Negative Normal NEGATIVE [facility] Comment on above: Performed By: #### I NSULIN #### [facility] [address] [place] [address] Dr. Carolyn King pH (U) 6.0 [pH] Normal 5-9 [facility] Comment on above: Performed By: #### I NSULIN #### [facility] [address] [place] [address] Dr. Carolyn King SPEC GRAVITY 1.010 Normal 1.005-<=1. 025 [facility] Comment on above: Performed By: #### I NSULIN #### [facility] [address] [place], [place] [id number] Dr. Carolyn King UA PROTEIN Negative Normal NEGATIVE/ TRACE [facility] Comment on above: Performed By: #### I NSULIN #### [facility] [address] [place] [address] Dr. Carolyn King UR MICRO IND INDICATED Normal [facility] Comment on above: Performed By: #### I NSULIN #### [facility] [address] [place] [address] Dr. Carolyn King Urobilinogen Qn (U) 0.2 {Keren'U}/dL Normal 0.2 - 1. 0 [facility] Comment on above: Performed By: #### I NSULIN #### [facility] [address] [place] [address] Dr. Carolyn King LIPASEon 01-09-2022 Lipase [Catalytic activity/Vol] 98.0 U/L Normal 73.0-393.0 [facility] Comment on above: Performed By: #### I NSULIN #### [facility] [address] [place] [address] Dr. Carolyn King PROF 14(COMP METB)on 022 Albumin [Mass/Vol] 4.0 g/dL Normal 3.4-5.0 [facility] Comment on above: Performed By: #### I NSULIN #### [facility] [address] [place] [address] Dr. Carolyn King Albumin/Globulin [Mass ratio] 1.1 {ratio} Normal [facility] Comment on above: Performed By: #### I NSULIN #### [facility] [address] [place] [address] Dr. Carolyn King ALP [Catalytic activity/Vol] 112 U/L Normal 46-116 [facility] Comment on above: Performed By: #### I NSULIN #### [facility] [address] [place] [address] Dr. Carolyn King ALT [Catalytic activity/Vol] 27 U/L Normal 16-63 [facility] Comment on above: Performed By: #### I NSULIN #### [facility] [address] [place], [place] [id number] Dr. Carolyn King Anion gap [Moles/Vol] 14.9 mmol/L Normal [facility] Comment on above: Performed By: #### I NSULIN #### [facility] [address] [place] [address] Dr. Carolyn King AST [Catalytic activity/Vol] 22 U/L Normal 15-37 [facility] Comment on above: Performed By: #### I NSULIN #### [facility] [address] [address] [address] Carolyn King Bilirubin [Mass/Vol] 0.5 mg/dL Normal 0.2-1.0 [facility] Comment on above: Performed By: #### I NSULIN #### [facility] [address] [place] [address] Dr. Carolyn King Calcium [Mass/Vol] 9.1 mg/dL Normal 8.5-10.1 [facility] Comment on above: Performed By: #### I NSULIN #### [facility] [address] [place] [address] Dr. Carolyn King Chloride [Moles/Vol] 103 mmol/L Normal 98-107 [facility] Comment on above: Performed By: #### I NSULIN #### [facility] [address] [place] [address] Dr. Carolyn King CO2 [Moles/Vol] 26.0 mmol/L Normal 21.0-32.0 [facility] Comment on above: Performed By: #### I NSULIN #### [facility] [address] [place] [address] Dr. Carolyn King Creatinine [Mass/Vol] 1.09 mg/dL Normal 0.70-1.30 [facility] Comment on above: Performed By: #### I NSULIN #### [facility] [address] [place] [address] Dr. Carolyn King EGFR-AF VIETNAMESE >60 Normal >=60 [facility] Comment on above: Performed By: #### I NSULIN #### [facility] [address] [place] [address] Dr. Carolyn King EGFR-NON AF VIETNAMESE >60 Normal >=60 [facility] Comment on above: Performed By: #### I NSULIN #### [facility] [address] [place] [address] Dr. Carolyn King Globulin (S) [Mass/Vol] 3.8 g/dL Normal [facility] Comment on above: Performed By: #### I NSULIN #### [facility] [address] [place] [address] Dr. Carolyn King Glucose [Mass/Vol] 97 mg/dL Normal 74-106 [facility] Comment on above: Performed By: #### I NSULIN #### [facility] [address] [place] [address] Dr. Carolyn King Potassium [Moles/Vol] 3.9 mmol/L Normal 3.5-5.1 [facility] Comment on above: Performed By: #### I NSULIN #### [facility] [address] [place] [address] Dr. Carolyn King Protein [Mass/Vol] 7.8 g/dL Normal 6.4-8.2 [facility] Comment on above: Performed By: #### I NSULIN #### [facility] [address] [place] [address] Dr. Carolyn King Sodium [Moles/Vol] 140 mmol/L Normal 136-145 [facility] Comment on above: Performed By: #### I NSULIN #### [facility] [address] [place] [address] Dr. Carolyn King Urea nitrogen [Mass/Vol] 16.0 mg/dL Normal 7.0-18.0 [facility] Comment on above: Performed By: #### I NSULIN #### [facility] [address] [place] [address] Dr. Carolyn King Urea nitrogen/Creatinine [Mass ratio] 14.7 mg/mg Normal [facility] Comment on above: Performed By: #### I NSULIN #### [facility] [address] [place] [address] Dr. Carolyn King URINE MICROSCOPIC ONLYon BACTERIA NONE SEEN Normal NONE SEEN [facility] Comment on above: Performed By: #### I NSULIN #### [facility] [address] [place] [address] Dr. Carolyn King Bacteria identified Cx Nom (U) NOT INDICATED Normal [facility] Comment on above: Performed By: #### I NSULIN #### [facility] [address] [place] [address] Dr. Carolyn King CAST NONE SEEN Normal NONE SEEN [facility] Comment on above: Performed By: #### I NSULIN #### [facility] [address] [place] [address] Dr. Carolyn King Crystals LM Nom (Urine sed) NONE SEEN Normal NONE SEEN [facility] Comment on above: Performed By: #### I NSULIN #### [facility] [address] [place] [address] Dr. Carolyn King Epithelial cells LM Ql (Urine sed) NONE SEEN Normal NONE SEEN /RARE [facility] Comment on above: Performed By: #### I NSULIN #### [facility] [address] [place] [address] Dr. Carolyn King MUCOUS NONE SEEN Normal NONE SEEN [facility] Comment on above: Performed By: #### I NSULIN #### [facility] [address] [place] [address] Dr. Carolyn King RBC 2-5 Abnormal 0-2 [facility] Comment on above: Performed By: #### I NSULIN #### [facility] [address] [place] [address] Dr. Carolyn King WBC 0-2 Abnormal NONE SEEN [facility] Comment on above: Performed By: #### I NSULIN #### [facility] [address] [place] [address] Dr. Carolyn King US SINGLE QUAD RT [...] by: BANDAR QUEZADA Date: 2022-01-05 10:15 Normal [facility] NM HEPATOBILIARY SCAN W EFon 12-27-2021 MS HEPATOBILIARY SCAN W EF HISTORY: Right upper [...] LAURY SNYDER Date: 2021-12-27 12:16 Normal [facility] CT ABD/PELV W CONon 12-12-19 CT ABD/PELV [...] by: LAURY ZEPEDA Date: 2021-12-11 07:30 Normal [facility] CREATININEon 12-09-2021 Creatinine [Mass/Vol] 0.98 mg/dL Normal 0.70-1.30 [facility] Comment on above: Performed By: #### I NSULIN #### [facility] [address] [address] [address] Carolyn King EGFR-AF VIETNAMESE >60 Normal >=60 [facility] Comment on above: Performed By: #### I NSULIN #### [facility] [address] [address] [address] Carolyn King EGFR-NON AF VIETNAMESE >60 Normal >=60 [facility] Comment on above: Performed By: #### I NSULIN #### [facility] [id number] [address] Carolyn King BN SPINE, LUMBOSACRAL; 2 OR 3 VIEWSon 11-08-2021 BN SPINE, LUMBOSACRAL; 2 OR 3 VIEWS Patient Name: JAY CARR STUDY: Lumbar spine dated 11/08/2021. INDICATION: AP/LAT M54.50: Lumbar back pain M48.062: Lumbar stenosis with neurogenic claudication COMPARISON: None. ACCESSION NUMBER(S): [id number] ORDERING CLINICIAN: KENTON LAWSON TECHNIQUE: AP and [...] above. Electronically signed by: BATSHEVA VIDAL MD [facility] Post Op (Orthopaedic Surgery )on 11-08-2021 Post [...] Work Phone: CBCon 09-29-2021 HCT Canceled Normal [facility] Comment on above: Order Comment: TEST CBC WAS CANCELLED, 09/29/2021 08:10 NO SPECIMEN RECEIVED IN LAB. Performed By: #### C BC ####[id number] [place] [address] HGB Canceled Normal [facility] Comment on above: Order Comment: TEST CBC WAS CANCELLED, 09/29/2021 08:10 NO SPECIMEN RECEIVED IN LAB. Performed By: #### C BC ####[id number] [place] [address] MCHC Canceled Normal [facility] Comment on above: Order Comment: TEST CBC WAS CANCELLED, 09/29/2021 08:10 NO SPECIMEN RECEIVED IN LAB. Performed By: #### C BC ####[id number] [place] [address] MCV Canceled Normal [facility] Comment on above: Order Comment: TEST CBC WAS CANCELLED, 09/29/2021 08:10 NO SPECIMEN RECEIVED IN LAB. Performed By: #### C BC ####[id number] [place] [address] NUCLEATED RBC Canceled Normal [facility] Comment on above: Order Comment: TEST CBC WAS CANCELLED, 09/29/2021 08:10 NO SPECIMEN RECEIVED IN LAB. Performed By: #### C BC ####[id number] [place] [address] PLT Canceled Normal [facility] Comment on above: Order Comment: TEST CBC WAS CANCELLED, 09/29/2021 08:10 NO SPECIMEN RECEIVED IN LAB. Performed By: #### C BC ####[id number] [place] [address] RBC Canceled Normal [facility] Comment on above: Order Comment: TEST CBC WAS CANCELLED, 09/29/2021 08:10 NO SPECIMEN RECEIVED IN LAB. Performed By: #### C BC ####[id number] [place] [address] RDW-CV Canceled Normal [facility] Comment on above: Order Comment: TEST CBC WAS CANCELLED, 09/29/2021 08:10 NO SPECIMEN RECEIVED IN LAB. Performed By: #### C BC ####[id number] [place] [address] WBC Canceled Normal [facility] Comment on above: Order Comment: TEST CBC WAS CANCELLED, 09/29/2021 08:10 NO SPECIMEN RECEIVED IN LAB. Performed By: #### C BC ####[id number] [place] [address] BASIC METABOLIC PANELon ANION GAP Canceled Normal [facility] Comment on above: Order Comment: TEST BASIC METABOLIC PANEL WAS CANCELLED, 09/28/2021 04:56 Performed By: #### B MP ####[id number] [place] [address] BICARBONATE Canceled Normal [facility] Comment on above: Order Comment: TEST BASIC METABOLIC PANEL WAS CANCELLED, 09/28/2021 04:56 Performed By: #### B MP ####[id number] [place] [address] CALCIUM Canceled Normal [facility] Comment on above: Order Comment: TEST BASIC METABOLIC PANEL WAS CANCELLED, 09/28/2021 04:56 Performed By: #### B MP ####[id number] [place] [address] CHLORIDE Canceled Normal [facility] Comment on above: Order Comment: TEST BASIC METABOLIC PANEL WAS CANCELLED, 09/28/2021 04:56 Performed By: #### B MP ####[id number] [place] [address] CREATININE Canceled Normal [facility] Comment on above: Order Comment: TEST BASIC METABOLIC PANEL WAS CANCELLED, 09/28/2021 04:56 Performed By: #### B MP ####[id number] [place] [address] eGFR FEMALE Canceled Normal [facility] Comment on above: Order Comment: TEST BASIC METABOLIC PANEL WAS CANCELLED, 09/28/2021 04:56 Result Comment: CALC ULATIONS OF ESTIMATED GFR ARE PERFORMED USING THE 2021 CKD-EPI STUDY REFIT EQUATION WITHOUT THE RACE VARIABLE FOR THE IDMS-TRACEABLE CREATININE METHODS. https://jasn.asnjournals.org/content/early/ASN.96446 06042 Performed By: #### B MP ####[id number] [place] [address] eGFR MALE Canceled Normal [facility] Comment on above: Order Comment: TEST BASIC METABOLIC PANEL WAS CANCELLED, 09/28/2021 04:56 Result Comment: CALC ULATIONS OF ESTIMATED GFR ARE PERFORMED USING THE 2020 CKD-EPI STUDY REFIT EQUATION WITHOUT THE RACE VARIABLE FOR THE IDMS-TRACEABLE CREATININE METHODS. https://jasn.asnjournals.org/content/ASN.63667 18670 Performed By: #### B MP ####[id number] [place] [address] GLUCOSE Canceled Normal [facility] Comment on above: Order Comment: TEST BASIC METABOLIC PANEL WAS CANCELLED, 09/28/2021 04:56 Performed By: #### B MP ####[id number] [place] [address] POTASSIUM Canceled Normal [facility] Comment on above: Order Comment: TEST BASIC METABOLIC PANEL WAS CANCELLED, 09/28/2021 04:56 Performed By: #### B MP ####[id number] [place] [address] SODIUM Canceled Normal [facility] Comment on above: Order Comment: TEST BASIC METABOLIC PANEL WAS CANCELLED, 09/28/2021 04:56 Performed By: #### B MP ####[id number] [place] [address] UREA NITROGEN Canceled Normal [facility] Comment on above: Order Comment: TEST BASIC METABOLIC PANEL WAS CANCELLED, 09/28/2021 04:56 Performed By: #### B MP ####[id number] [place] [address] BASIC METABOLIC PANELon 04-0 Anion gap [Moles/Vol] 16 mmol/L Normal 10 - 20 [facility] Comment on above: Performed By: #### B MP #### [facility] [address] [place] [address] Calcium [Mass/Vol] 9.0 mg/dL Normal 8.6 - 10.6 [facility] Comment on above: Performed By: #### B MP #### [facility] [address] [place] [address] Chloride [Moles/Vol] 103 mmol/L Normal 98 - 107 [facility] Comment on above: Performed By: #### B MP #### [facility] [address] [place] [address] Creatinine [Mass/Vol] 0.83 mg/dL Normal 0.50 - 1.30 [facility] Comment on above: Performed By: #### B MP #### [place] [id number] [place] [address] eGFR MALE >90 Normal >90 [facility] Comment on above: Result Comment: CALC ULATIONS OF ESTIMATED GFR ARE PERFORMED USING THE 2020 CKD-EPI STUDY REFIT EQUATION WITHOUT THE RACE VARIABLE FOR THE IDMS-TRACEABLE CREATININE METHODS. https://jasn.asnjournals.org/content//ASN.04192 29114 Performed By: #### B MP #### [facility] [address] [place] [address] Glucose [Mass/Vol] 141 mg/dL High 74 - 99 [facility] Comment on above: Performed By: #### B MP #### [facility] [address] [place] [address] HCO3 (Bld) [Moles/Vol] 24 mmol/L Normal 21 - 32 [facility] Comment on above: Performed By: #### B MP #### [facility] [address] [place] [address] Potassium [Moles/Vol] 4.4 mmol/L Normal 3.5 - 5.3 [facility] Comment on above: Performed By: #### B MP #### [facility] [address] [place] [address] Sodium [Moles/Vol] 139 mmol/L Normal 136 - 145 [facility] Comment on above: Performed By: #### B MP #### [facility] [address] [place] [address] Urea nitrogen [Mass/Vol] 13 mg/dL Normal 6 - 23 [facility] Comment on above: Performed By: #### B MP #### [facility] [address] [place] [address] CBCon 09-27-2021 HCT Canceled Normal [facility] Comment on above: Order Comment: TEST URINALYSIS WAS CANCELLED, 09/19/2021 12:02 DUPLICATE ORDER. Performed By: #### U A #### [facility] [address] [place] [address] HGB Canceled Normal [facility] Comment on above: Order Comment: TEST URINALYSIS WAS CANCELLED, 09/19/2021 12:02 DUPLICATE ORDER. Performed By: #### U A #### [facility] [address] [place] [address] MCHC Canceled Normal [facility] Comment on above: Order Comment: TEST URINALYSIS WAS CANCELLED, 09/19/2021 12:02 DUPLICATE ORDER. Performed By: #### U A #### [facility] [address] [place] [address] MCV Canceled Normal [facility] Comment on above: Order Comment: TEST URINALYSIS WAS CANCELLED, 09/19/2021 12:02 DUPLICATE ORDER. Performed By: #### U A #### [facility] [address] [place] [address] NUCLEATED RBC Canceled Normal [facility] Comment on above: Order Comment: TEST URINALYSIS WAS CANCELLED, 09/19/2021 12:02 DUPLICATE ORDER. Performed By: #### U A #### [facility] [address] [place] [address] PLT Canceled Normal [facility] Comment on above: Order Comment: TEST URINALYSIS WAS CANCELLED, 09/19/2021 12:02 DUPLICATE ORDER. Performed By: #### U A #### [facility] [address] [place] [address] RBC Canceled Normal [facility] Comment on above: Order Comment: TEST URINALYSIS WAS CANCELLED, 09/19/2021 12:02 DUPLICATE ORDER. Performed By: #### U A #### [facility] [address] [place] [address] RDW-CV Canceled Normal [facility] Comment on above: Order Comment: TEST URINALYSIS WAS CANCELLED, 09/19/2021 12:02 DUPLICATE ORDER. Performed By: #### U A #### [facility] [address] [place] [address] WBC Canceled Normal [facility] Comment on above: Order Comment: TEST URINALYSIS WAS CANCELLED, 09/19/2021 12:02 DUPLICATE ORDER. Performed By: #### U A #### [facility] [address] [place] [address] Erythrocyte distribution width (RBC) [Ratio] 13.1 % Normal 11.5 - 14.5 [facility] Comment on above: Performed By: #### U A #### [facility] [address] [place] [address] Hematocrit (Bld) [Volume fraction] 41.3 % Normal 41.0 - 52.0 [facility] Comment on above: Performed By: #### U A #### [facility] [address] [place] [address] Hemoglobin (Bld) [Mass/Vol] 14.1 g/dL Normal 13.5 - 17.5 [facility] Comment on above: Performed By: #### U A #### [facility] [address] [place] [address] MCHC (RBC) [Mass/Vol] 34.1 g/dL Normal 32.0 - 36.0 [facility] Comment on above: Performed By: #### U A #### [facility] [address] [place] [address] MCV (RBC) [Entitic vol] 93 fL Normal 80 - 100 [facility] Comment on above: Performed By: #### U A #### [facility] [address] [place] [address] NUCLEATED RBC 0.0 /100 WBC Normal 0.0-0.0 [facility] Comment on above: Performed By: #### U A #### [place] [address] [place] [address] Platelets (Bld) [#/Vol] 217 10*3/uL Normal 150 - 450 [facility] Comment on above: Performed By: #### U A #### [facility] [address] [place] [address] RBC 4.42 x10E12/L Low 4.50 - 5.90 [facility] Comment on above: Performed By: #### U A #### [facility] [address] [place] [address] WBC (Bld) [#/Vol] 13.6 10*3/uL High 4.4 - 11.3 [facility] Comment on above: Performed By: #### U A #### [facility] [address] [place] [address] Daily Progress Note-Orthopae andrew 09-27-2021 Daily Progress Note-Orthopaedics Service: Orthopaedics Subjective Data: JAY CARR is a 61 year old Male who is Hospital Day # 2 and POD #1 for 1. XLIF L3/4, 4/5;2. Navigated percutaneous PSIF L3-5. Patient resting comfortably in bed. Pain well controlled. Denies CP, SOB, F/C, N/V. No new N/T. Objective Data: Objective Information: T PRBPMAPSpO2 [id number]/7598% Date/Time09/27 5: 5: 5: 5:394 5:39 Range(36.5C [...] Recent Arterial Blood Gas Results 09/26/2021 12:37 [id number] pH7.37 [id number] Base Excess0.8null Assessment and Plan: Code Status: Code StatusFull Code Assessment: 61 y/o male s/p L3/4-4/5 XLIF, L3-5 perc PSIF on 09/26/[address] Richardson, doing well. Plan: - WB status: WBAT, no excessive bending/twisting - DVT ppx: SCDs + Teds at all times while in bed, ambulation - Diet: Clear liquid diet, ADAT to regular - LINE AND FRAME POLER => PO pain medication per pain protocol [...] Timothy Steinberg M.D. Orthopaedic Surgery, PGY-2 Pager: [phone] Orthopaedic Spine Team Brannon Steinberg, PGY-2 [phone] - 1st call Orquidea Akbar, PGY-4 [phone] - 2nd call Available via [employer] After 5pm-7am, weekends, holidays please page [phone] for loan consultant resident for urgent questions/concerns. Attestation: Note Completion: [...] the note. I personally evaluated the patient [id number] Electronic Signatures: Sal Richardson) (Signed 29-Sep-2021 11:37) Authored: Note Completion Co-Signer: Service, Subjective Data, Objective Data, Assessment and Plan, Note Completion Timothy Steinberg (Resident)) (Signed 27-Sep-2021 06:49) Authored: Service, Subjective Data, Objective Data, Assessment and Plan, Note Completion Last Updated: 29-Sep-2021 11:37 by Sal Richardson) [facility] Order Reconciliationon 09-27 Order Reconciliation Page 1 Discharge Reconciliation Document Reconciliation Type: Discharge requested on behalf of Timothy Steinberg (Resident) done by Timothy Steinberg (Resident)) Discharge - Reconciliation: 27-Sep-2021 13:39 by: Timothy Steinberg (Resident)) Discharge - Reset to Incomplete: 27-Sep-2021 13:40 by: Timothy Steinberg (Resident)) Discharge - Reconciliation: 27-Sep-2021 13:42 by: [...] unarousable, and respiratory rate lessClinician Notes: HOLD LINE AND FRAME POLER Infusion and notify H.O. immediately 26-Sep-2021 15:16 [...] at Discharge: (more content not included)... Normal [facility] PT Evaluation [id number] t - co-tx c/ OT for maximized saon 09-27-2021 PT Evaluation [id number] - co-tx c/ OT for maximized sa Rehab: Info: Mode of Treatmentco-treatment; physical therapy; co-tx c/ OT for maximized safety and mobility Time IN10:00 Time OUT10:27 Total Treatment [id number] Patient in ... at end of sessionchair; alarm on Communicated with ... at end of sessionbedside nurse Patient Effortexcellent Symptoms Noted During/After Treatmentnone Patient Profile Reviewedyes Onset of Illness/Injury or Date of [id number]-[id number]-4199 Reason for ReferralXLIF L3/4, 4/5;2. Navigated percutaneous [...] Mobility/Tone: Bed Mobility Assessment/Interventions supine to sit Rkwwhs-qg-Jhg Zenda (Bed Mobility)standby assist; 1 person assist Assistive Device (Bed Mobility)bed rails Comment, Bed MobilityPt. educated on log roll Transfer Assessment/Interventions sit to stand transfer; stand to sit transfer; bed to chair transfer Bed-Chair Zenda (Transfers)1 person assist; standby assist; verbal cues Sit-Stand Zenda (Transfers)standby assist; 1 person assist Sit-Stand Assistive Device (Transfers)no AD Stand-Sit Zenda (Transfers)standby assist; 1 person assist Stand-Sit Assistive [...] Motor: Sitting, Static (Balance)SBA Sitting, Dynamic (Balance)SBA Gtc-qe-Vhtye (Balance)SBA Standing, Static (Balance)SBA Standing, Dynamic (Balance)SBA [...] goals Thera (more content not included)... Normal [facility] ARTERIAL FULL PANELon 2021 Anion gap [Moles/Vol] 11 mmol/L Normal - [facility] Comment on above: Performed By: #### A FPA4 #### [facility] [address] [place] [address] BASE EXCESS-BLOOD 0.8 mmol/L Normal -2.0 - 3.0 [facility] [place] Comment on above: Performed By: #### A FPA4 #### [facility] [address] [place] [address] BICARB, CALCULATED 26.6 mmol/L High 22.0 - 26.0 [facility] Comment on above: Performed By: #### A FPA4 #### [facility] [address] [place] [address] CALCIUM,IONIZED 1.15 mmol/L Normal 1.10 - 1.33 [facility] Comment on above: Performed By: #### A FPA4 #### [facility] [address] [place] [address] Chloride [Moles/Vol] 102 mmol/L Normal 98 - 107 [facility] Comment on above: Performed By: #### A FPA4 #### [facility] [address] [place] [address] Glucose [Mass/Vol] 114 mg/dL High 74 - 99 [facility] Comment on above: Performed By: #### A FPA4 #### [facility] [address] [place] [address] Hematocrit (Bld) [Volume fraction] 42.0 % Normal 41.0 - 52.0 [facility] Comment on above: Performed By: #### A FPA4 #### [facility] [address] [place] [address] Hemoglobin (Bld) [Mass/Vol] 14.1 g/dL Normal 13.5 - 17.5 [facility] Comment on above: Performed By: #### A FPA4 #### [facility] [address] [place] [address] Lactate [Moles/Vol] 1.3 mmol/L Normal 0.4 - 2.0 [facility] Comment on above: Performed By: #### A FPA4 #### [facility] [address] [place] [address] OXY HGB 97.5 % Normal 94.0 - 98.0 [facility] Comment on above: Performed By: #### A FPA4 #### [facility] [address] [place] [address] Oxygen (Bld) [Partial pressure] 160 mm[Hg] High 85 - 95 [facility] Comment on above: Performed By: #### A FPA4 #### [facility] [address] [place] [address] PATIENT TEMPERATURE 37.0 degrees C Normal [facility] Comment on above: Result Comment: NOTE : PATIENT RESULTS ARE NOT CORRECTED FOR TEMPERATURE. Performed By: #### A FPA4 #### [facility] [address] [place] [address] PCO2 46 mmHg High 38 - 42 [facility] Comment on above: Performed By: #### A FPA4 #### [facility] [address] [place] [address] pH (Bld) 7.37 [pH] Low 7.38 - 7.42 [facility] Comment on above: Performed By: #### A FPA4 #### [facility] [address] [place] [address] Potassium [Moles/Vol] 4.8 mmol/L Normal 3.5 - 5.3 [facility] Comment on above: Performed By: #### A FPA4 #### [facility] [address] [place] [address] SO2 100 % Normal 94 - 100 [facility] Comment on above: Performed By: #### A FPA4 #### [facility] [address] [place] [address] Sodium [Moles/Vol] 135 mmol/L Low 136 - 145 [facility] Comment on above: Performed By: #### A FPA4 #### [facility] [address] [place] [address] Admission Risk Screen - Adul ton 09-26-2021 [...] AlertFor Ebola-like Symptoms: Isolate Patient and Notify Provider/Band Straightener For Contact: Notify Provider/Band Straightener Advance Directive: Advance Directive/DNRno Advance Directive Information [...] Communicatenone Learning Preferencesaudio Cultural Considerationsnone Developmental Considerationsnone Zoroastrian Considerationsnone Learning Assessment (Other Learner): Other learner availableno Depression Screen: During the past month, have you often been bothered by feeling down, depressed or hopelessno During the past month, have you often had little interest or pleasure in doing thingsno Have you had any thoughts of harming anyone elseno [place] Suicide: Risk Screen Not Applicable/Able to Answerable to be screened In the Past Month: Have you wished you were or could go to sleep and not wake upno(1) In the Past Month: Have you had any actual thoughts of killing yourself no(1) Lifetime: Have you ever done, started to do, or prepared to do anything to end your lifeno(1) [place] Suicide Risknegative Adult Nutrition Screen: Have you [...] Spiritual Screen: Are there any cultural, spiritual, cheondoism practices/values/needs that are important for us to knowno CAGE: Is this an injured patient at a Trauma Center ([facility] [place]/[facility]/[place]/[employer]): no Vaccinations: Vaccination - Influenza Vaccination Screen: Is it flu season (between and September 21)Yes Screening for identified contraindications to influenza vaccinationpatient already received vaccine this season Vaccination - Pneumonia Vaccination Screen: Patient has received a previous pneumonia vaccine:no/unknown... Immunocompetent persons with underlying chronic conditions or r (more content not included)... Normal [facility] Daily Progress Note-Orthopae kaison 09-26-2021 Daily Progress [...] Recent Arterial Blood Gas Results 09/26/2021 12:37 [id number] pH7.37 vEO212 [id number] Base Excess0.8null Assessment and Plan: Code Status: Code StatusFull Code Assessment: 61 y/o male s/p L3/4-4/5 XLIF, L3-5 perc PSIF on 09/26/[address] Richardson, doing well. Plan: - WB status: WBAT, no excessive bending/twisting - DVT ppx: SCDs + Teds at all times while in bed, ambulation - Diet: Clear liquid diet, ADAT to regular - LINE AND FRAME POLER => PO pain medication per pain protocol - 24 hr perioperative abx: clinda x 4 doses - FEN: Continue NS at 100cc/hr; HLIV with good PO intake - Bowel Regimen: Colace, Dulcolax, Senna - PT/OT consult - Continue home medications - Discontinue goodrich catheter POD #1 - Decadron 4mg q6hr x4 doses Dispo: to VERONICA Steinberg M.D. Orthopaedic Surgery, PGY-2 Pager: [phone] Orthopaedic Spine Team Brannon Steinbegr PGY-2 [phone] - 1st call Orquidea Akbar PGY-4 [phone] - 2nd call Available via Doc Halo After 5pm-7am, weekends, holidays please page [phone] for loan consultant resident for urgent questions/concerns. Attestation: Note Completion: [...] the note. I personally evaluated the patient [id number] Electronic Signatures: Sal Richardson) (Signed 29-Sep-2021 11:38) Authored: Note Completion Co-Signer: Service, Subjective Data, Objective Data, Assessment and Plan, Note Completion Timothy Steinberg (Resident)) (Signed 26-Sep-2021 15:36) Authored: Service, Subjective Data, Objective Data, Assessment and Plan, Note Completion Last Updated: 29-Sep-2021 11:38 by Sal Richardson) Normal [facility] Discharge Planning [id number] 0 09-26-2021 Discharge Planning Note2 Discharge Planning: Planned Dispositionhome Anticipated Discharge [id number] Discharge Planning 09/27/21 1335 Transitional Care Coordination Progress Note: TCC verified demo is correct. lives at home with . pcp audrey armstrong. received covid vaccine x2 and booster x1. feels safe to return home today Patient discussed during interdisciplinary rounds. Team members present: MD/TOOL SHAPER SETUP OPERATOR, TCC, Plan per Medical/Surgical team: patient goodrich out. design editor changed to oral with pain control. MR for dc after working with PT OT today Status: inpatient Payor source: commercial Discharge disposition: home no needs per PT OT eval Potential Barriers: ADOD: today Calli Jones RN TCC 09/27/21 Patient discharged home with . Heather Foster RN Assessment: Discharge Planning Assessment [id number] Discharge Planning Assessment Completed bycalli jones RN [facility] Primary Contact Name and Numberwife [facility]usMiss[facility] Center781 [phone] Prior Level of FunctioningNA Lives Withspouse(1) Living Arrangementshouse(1) Stated Reason for Admissionback and hip pain(1) [place] ([place]) PCPAudrey Armstrong [facility] [facility] Falls/ Injury/ Need Assist with AmbulationNA DME Supplier Name/NumberNA Home Care Agency/Support ServicesNA Diabetic/Supplies NeededNA Hemodialysis ScheduleNA Resource/Environmental Concernsnone(1) Anticipated Transition [place](1) Services Anticipated at Transitionnon(1) Readmission Within the [...] (diet, activity, pt instructions)yes Discharge Documentation: Discharge/Transfer Date/[id number]-Maw-7184 17:00 Discharged Accompanied Byspouse Discharge Modewheelchair Transportation Methodprivate car Code StatusCode Status order at time of discharge: Full Code [place] DNR Form Sent with Patient and/or Familyn/a Valuables/Medications/Be longings Returnedyes Final [facility] Electronic Signatures: HEDY SHEPPARD (RN) (Signed 26-Sep-2021 21:59) Authored: Discharge Planning, Assessment, Discharge Documentation Heather Foster (RN) (Signed 27-Sep-2021 17:12) Authored: Discharge Planning, Nursing Checklist, Discharge Documentation Calli Jones (RN) (Signed 27-Sep-2021 13:35) Authored: Discharge Planning, Assessment Last Updated: 27-Sep-2021 17:12 by Heather Foster (RN) References: 1. Data Referenced From Patient Profile - Adult v2 26-Sep-2021 21:07 Normal [facility] Discharge [id number] 022 Discharge Profile2 Discharge Orders: Anticipated Discharge Date: Anticipated Discharge [id number] Problem List: Additional Dx: Lumbar radicular pain: Catalog Name: Radiculopathy, lumbar region Significant Events: right knee replacement: Past Surgical History biopsy on back: Past Surgical History left foot: Past Surgical History right foot: Past Surgical History covid in April 2021: Past Medical History lupus: Past Medical History GERD: Past Medical History HTN: Past Medical History Hospital Providers: Provider RoleProvider Name BrittneyLeandra AudreySal Christy DNAR: Code Status at Discharge: Full Code [...] HAVE ANTONIO REMOVED IN 3 WKS. AT [facility] [address] [facility] 5TH FLOOR ON 10/18/2021 AT 0930 WITH [facility] SANTIAGO. REHAB FACILITIES OR HOME CARE MAY REMOVE ANTONIO OR SUTURES. Wound Care 2: Wound SiteBACK (Lumbar Spine) Wound Typesurgical incision Change Dressingdaily Cleanse Withsoap and water Cover Withabdominal dressing Tape Withpaper tape Instructionsno lotions, creams, or tub soaks Other InstructionsPLEASE HAVE ANTONIO REMOVED IN 3 WKS. AT [facility] [address] [facility] 5TH FLOOR ON 10/18/2021 AT 0930 [...] with lumbar stenosis. Patient is now s/p L3/4-4/ XLIF, L3-5 PSIF on 09/[address] [...] floor. Patient was initially started on dilaudid LINE AND FRAME POLER x24 hours and then transitioned to an [...] Call to Schedule in6 weeks, PLEASE CALL [phone] TO SCHEDULE YOUR AMBER (more content not included)... Normal [facility] [place] [facility] [place] [place] [facility] [place] PREOPERATIVE DIAGNOSIS: Spinal stenosis and spondylolisthesis L3-4 and L4-5 in a patient with unrelenting claudication and radiculopathy. POSTOPERATIVE DIAGNOSIS: Spinal stenosis and spondylolisthesis L3-4 and L4-5 in a patient with unrelenting claudication and radiculopathy. OPERATION/PROCEDURE: Anterior lumbar interbody fusion by extreme lateral approach at L3-4 and L4-5 with use of interbody cage device x2. SURGEON: Sal Richardson MD. GATE MANAGER(S): programs assistant: Cb Casanova PA-C. Second access services assistant: Brannon Steinberg, second resident. ANESTHESIA: ESTIMATED [...] Deep layers were repaired using 0 Vicryl skrdpc-gz-dfzlv sutures, deep dermal layer was repaired using 2-0 Vicryl sutures, and the skin was repaired using antonio. Dry sterile dressing was ap (more content not included)... Normal [facility] Operative Reports - [facility] [place] PREOPERATIVE DIAGNOSIS: POSTOPERATIVE DIAGNOSIS: OPERATION/PROCEDURE: Posterior spinal [...] Deep layers were repaired using 0 Vicryl reauys-uj-fmvho sutures, deep dermal layer was repaired using [...] instrumentation and fusion. SURGEON: Sal Richardson MD. GATE MANAGER(S): ANESTHESIA: This is part 2 of a two-staged procedure. Part 1 was dictated in dictation #[id number]. Refer to dictation #[id number] for all details regarding the first part of the surgery. Sal Richardson MD EST EST DICTATION NUMBER: [id number] INTERNAL JOB NUMBER: [id number] CC: Sal Richardson MD, Electronic Signatures: Sal Richardson) (Signed on 03-Oct-2021 12:03) Authored Unsigned, Draft (SYS GENERATED) (Entered on 30-Sep-2021 07:37) Entered Last Updated: 03-Oct-2021 12:03 by Sal Richardson) [facility] Order Reconciliationon 09-26 Order Reconciliation Page 1 Admission Reconciliation Document Reconciliation Type: Admission from OR requested on behalf of Timothy Steinberg (Resident) done by Timothy Steinberg (Resident)) Admission from OR - Reconciliation: 26-Sep-2021 18:10 by: Timothy Steinberg (Resident)) Home MedicationsEnteredLast Dose TakenReconciled with current Order Reconciliation Comment/ Additional Information hydroxychloroquine 200 mg oral tablet 1 tab(s) oral 2 times a [id number]-Sep-2021 Hydroxychloroquine - PEDS Tablet (PLAQUENIL)DOSE = 200 mg Oral 2 Times a Dayhydroxychloroquine 200 mg oral tablet continued as the inpatient order Hydroxychloroquine - PEDS irbesartan 300 mg oral tablet 1 tab(s) oral once a [id number]-803 2 Reviewed and Held methocarbamol 500 mg oral tablet 2 tab(s) oral every 8 -[id number]-[id number]-Sep-2021 Reviewed and Held NIFEdipine 30 mg oral tablet, extended release 1 tab(s) oral once a day NIFEdipine (PROCARDIA XL) Extended Release Tablet, Extended ReleaseDOSE = 30 mg Oral DailyNIFEdipine 30 mg oral tablet, extended release continued as the inpatient order NIFEdipine (PROCARDIA XL) Extended Release pantoprazole 40 mg oral delayed release tablet 1 tab(s) oral once a day [id number] Pantoprazole Enteric Coated Tablet (PROTONIX)DOSE = 40 mg Oral Dailypantoprazole 40 mg oral delayed release tablet continued as the inpatient order Pantoprazole tiZANidine 4 mg oral tablet 1 oral Reviewed and Held Vitamin C 1 3 times a [id number]-553 2 Reviewed and Held Vitamin D3 1 3 times a [id number]-880 2 Reviewed and Held Zinc 140 mg [...] of 4 mg regardless of dose. HYDROmorphone LINE AND FRAME POLER 25 mg/ NaCL 0.9% 50 mL (DILAUDID IV LINE AND FRAME POLER)DEMAND/ LINE AND FRAME POLER Dose = 0.2 mgDELAY/ Lockout Time Period [...] unarousable, and respiratory rate lessClinician Notes: HOLD LINE AND FRAME POLER Infusion and notify H.O. immediately Ondansetron Injectable [...] hours: Do NOT use with Bisacodyl. Normal [facility] Patient Profile - Adult v2on 09-26-2021 Patient Profile - Adult v2 Profile: Initial Info: How to be AddressedPaul(1) Spoken Language PreferredEnglish (1) Stated Reason for Admissionback and hip pain Wants Family/Rep Notified of Admissionno Notify PCPdo not notify PCP Informed of Patient Visiting Rightsyes [place] Patient Belongingsremains with patient Patient Belongings Remaining [...] Arrangementshouse Services Anticipated at Transitionnone Anticipated Transition [place] Significant IndicatorsComplete Information Review: Allergies, Home Meds [...] From 1. Vital Signs 26-Sep-2021 07:09 Normal [facility] Patient Profile - Preop v3on 04-05-2022 Patient Profile - Preop v3 Patient Profile - Preop: Initial Info: Patient DemographicsName: JYA CARR Date: 1960 Address: [address] [place] [address].[place] [address] Primary Phone [phone] How to be AddressedPaul Spoken Language PreferredEnglish [...] Withspouse Living Arrangementshouse Resource/Environmental Concernsnone Anticipated Transition [place] Services Anticipated at Transitionnone Tobacco Use: Tobacco Useno Pre-op Checklist: Arrival [id number] NPOyes ID Band On Patientpatient ID (name), [...] penicillin: Drug, Rash, Active Electronic Signatures: Maisha Meyer) (Signed 26-Sep-2021 07:11) Authored: Initial Info, General Health, Health Mgmt, Relationship/Environ, Tobacco Use, Pre-op Checklist, Additional Information Last Updated: 26-Sep-2021 07:11 by Maisha Meyer) Normal [facility] CORONAVIRUS 2019, SCREEN ASY MPTOMATICon 09-25-2021 SARS-CoV-2 (COVID-19) RNA LU+probe Ql (Unsp spec) Not detected Normal Not Detected [facility] Comment on above: Result Comment: . This [...] patient management decisions. Fact sheet for providers: https://www.fda.gov/media/556719/download Fact sheet for patients: https://www.fda.gov/media/123628/download This test has received FDA Emergency Use Authorization (EUA) and has been verified by [facility] ([facility]). This test is only authorized for the duration of time that circumstances exist to justify the authorization of the emergency use of in vitro diagnostic tests for the detection of SARS-CoV-2 virus and/or diagnosis of COVID-19 infection under section 564(b)(1) of the Act, 21 U.S.C. 360bbb-3(b)(1), unless the authorization is terminated or revoked sooner. [facility] is certified under CLIA-88 as qualified to perform high complexity testing. Testing is performed in the [facility] laboratories located at [address] [place] [address]. Performed By: #### U ARFX #### [place] [address] Lab Specimen Source Nasal, Nasopharyngeal Normal [facility] Comment on above: Performed By: #### U AR[place] #### [place] [address] Covid 19 Resultson 2 SARS-CoV-2 (COVID-19) RNA [...] You may also be contacted by the [facility] to see if any of your close [...] or Naproxen (Aleve) can also be used. Qtwt-qdo-kzjdjfr cough and cold medicines can be used according to the instructions on the package. Some jhdi-lid-rhtrbtr medicines also contain acetaminophen. Make sure you [...] water are not available, use alcohol-based hand devil tender. Avoid touching your eyes, nose, and mouth [...] 24 mary (more content not included)... Normal [facility] COAGULATION SCREENon 022 aPTT Coag (Bld) [Time] 34 s Normal 26 - 39 [facility] Comment on above: Result Comment: THE APTT IS NO LONGER USED FOR MONITORING UNFRACTIONATED HEPARIN THERAPY. FOR MONITORING HEPARIN THERAPY, USE THE HEPARIN ASSAY. Performed By: #### U ARFX #### [facility] [address] [place] [address] PT Coag (PPP) [Time] 11.1 s Normal 9.8 - 13.4 [facility] Comment on above: Performed By: #### U ARFX #### [facility] [address] [place] [address] PT, INR 1.0 Normal 0.9 - 1.1 [facility] Comment on above: Performed By: #### U ARFX #### [facility] [address] [place] [address] Laboratory - Blood bankon ABO group Nom [...] SCREEN PATIENT: JAY CARR LOCATION: [facility] STOLL#: [id number] : 62 AGE: SEX: M ORDERED BY: SAL RICHARDSON SOURCE: ANTERIOR NARES COLLECTED: 09/19/21 10:10 ANTIBIOTICS AT BRAEDEN.: RECEIVED : 09/19/21 12:47 SITE: Nasal R E S U L T S STAPH/MRSA SCREEN FINAL 09/20/21 13:57 NO Staphylococcus aureus ISOLATED. Normal [facility] Comment on above: Performed By: #### S TAPH #### [facility] [address] [place] [address] TYPE + SCREENon 09-19-2021 ABO TYPE O Normal [facility] Comment on above: Performed By: #### T +S #### [facility] [address] [place] [address] RH TYPE Negative Normal [facility] Comment on above: Performed By: #### T +S #### [facility] [address] [place] [address] URINALYSISon 09-19-2021 Appearance (U) Canceled Normal [facility] Comment on above: Order Comment: TEST URINALYSIS WAS CANCELLED, 09/19/2021 12:02 DUPLICATE ORDER. Performed By: #### U A #### [facility] [address] [place] [address] ASCORBIC ACID Canceled Normal [facility] Comment on above: Order Comment: TEST URINALYSIS WAS CANCELLED, 09/19/2021 12:02 DUPLICATE ORDER. Result Comment: Conc entrations > = 20 mg/dL of ascorbic acid can be expected to cause strong interference in the reactions testing for glucose, nitrite and blood. It is recommended to discontinue Vitamin C administration and retest in 10 hours. Performed By: #### U A #### [facility] [address] [place] [address] Bilirubin Ql (U) Canceled Normal [facility] Comment on above: Order Comment: TEST URINALYSIS WAS CANCELLED, 09/19/2021 12:02 DUPLICATE ORDER. Performed By: #### U A #### [facility] [address] [place] [address] Color (U) Canceled Normal [facility] Comment on above: Order Comment: TEST URINALYSIS WAS CANCELLED, 09/19/2021 12:02 DUPLICATE ORDER. Performed By: #### U A #### [facility] [address] [place] [address] Glucose Ql (U) Canceled Normal [facility] Comment on above: Order Comment: TEST URINALYSIS WAS CANCELLED, 09/19/2021 12:02 DUPLICATE ORDER. Performed By: #### U A #### [facility] [address] [place] [address] Hemoglobin Ql (U) Canceled Normal [facility] [place] Comment on above: Order Comment: TEST URINALYSIS WAS CANCELLED, 09/19/2021 12:02 DUPLICATE ORDER. Performed By: #### U A #### [facility] [address] [place] [address] Ketones Ql (U) Canceled Normal [facility] Comment on above: Order Comment: TEST URINALYSIS WAS CANCELLED, 09/19/2021 12:02 DUPLICATE ORDER. Performed By: #### U A #### [facility] [address] [place] [address] Leukocyte esterase Test strip Ql (U) Canceled Normal [facility] Comment on above: Order Comment: TEST URINALYSIS WAS CANCELLED, 09/19/2021 12:02 DUPLICATE ORDER. Performed By: #### U A #### [facility] [address] [place] [address] Nitrite Ql (U) Canceled Normal [facility] Comment on above: Order Comment: TEST URINALYSIS WAS CANCELLED, 09/19/2021 12:02 DUPLICATE ORDER. Performed By: #### U A #### [facility] [address] [place] [address] pH Canceled Normal [facility] Comment on above: Order Comment: TEST URINALYSIS WAS CANCELLED, 09/19/2021 12:02 DUPLICATE ORDER. Performed By: #### U A #### [facility] [address] [place] [address] Protein Ql (U) Canceled Normal [facility] Comment on above: Order Comment: TEST URINALYSIS WAS CANCELLED, 09/19/2021 12:02 DUPLICATE ORDER. Performed By: #### U A #### [facility] [address] [place] [address] Specific gravity (U) [Rel density] Canceled Normal [facility] Comment on above: Order Comment: TEST URINALYSIS WAS CANCELLED, 09/19/2021 12:02 DUPLICATE ORDER. Performed By: #### U A #### [facility] [address] [place] [address] UROBILINOGEN Canceled Normal [facility] Comment on above: Order Comment: TEST URINALYSIS WAS CANCELLED, 09/19/2021 12:02 DUPLICATE ORDER. Performed By: #### U A #### [facility] [address] [place] [address] URINALYSIS WITH CULTURE IF I NDICATEDon 09-19-2021 Appearance (U) CLEAR Normal CLEAR [facility] Comment on above: Performed By: #### U ARFX #### [facility] [address] [place] [address] Bilirubin Ql (U) Negative Normal NEGATIVE [facility] Comment on above: Performed By: #### U ARFX #### [facility] [address] [place] [address] Color (U) YELLOW Normal STRAW,YELL OW [facility] Comment on above: Performed By: #### U ARFX #### [facility] [address] [place] [address] Glucose Ql (U) Negative Normal NEGATIVE [facility] Comment on above: Performed By: #### U ARFX #### [facility] [address] [place] [address] Hemoglobin Ql (U) Negative Normal NEGATIVE [facility] [place] Comment on above: Performed By: #### U ARFX #### [facility] [address] [place] [address] Ketones Ql (U) Negative Normal NEGATIVE [facility] Comment on above: Performed By: #### U ARFX #### [facility] [address] [place] [address] Leukocyte esterase Test strip Ql (U) Negative Normal NEGATIVE [facility] Comment on above: Performed By: #### U ARFX #### [facility] [address] [place] [address] Nitrite Ql (U) Negative Normal NEGATIVE [facility] Comment on above: Performed By: #### U ARFX #### [facility] [address] [place] [address] pH (U) 6.0 [pH] Normal 5.0 - 8.0 [facility] Comment on above: Performed By: #### U ARFX #### [facility] [address] [place] [address] Protein Ql (U) Negative Normal NEGATIVE [facility] Comment on above: Performed By: #### U ARFX #### [facility] [address] [place] [address] Specific gravity (U) [Rel density] 1.016 Normal 1.005 - 1.035 [facility] Comment on above: Performed By: #### U ARFX #### [facility] [address] [place] [address] Urobilinogen (U) [Mass/Vol] mg/dL Normal 0.0 - 1.9 [facility] Comment on above: Performed By: #### U ARFX #### [facility] [address] [place] [address] Color (U) YELLOW See Below [facility]-Anesthesiol [facility]gy-Ctr [...] may no (more content not included)... Normal [employer] Office Visiton 08-03-2021 Follow-up visit Diagnoses/Problems Lumbar [...] Hold For - Scheduling,Retrospective Authorization Requested for: [id number] Lumbar back pain, Lumbar stenosis with neurogenic [...] for we (more content not included)... Normal [facility] 08-03-2021 XR Cervical spine 3 Views Please click on the link to view the study images Normal -Orthopaedic [facility] Work Phone: SPINE, CERVICAL, 2 OR 3 VIEW Son 08-03-2021 SPINE, CERVICAL, 2 OR 3 VIEWS Patient Name: JAY CARR STUDY: SPINE, CERVICAL, 2 OR 3 VIEWS; 08/03/2021 10:55 am INDICATION: ap/lat 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 COMPARISON: None. ACCESSION NUMBER(S): [id number] ORDERING CLINICIAN: SAL RICHARDSON FINDINGS: C-spine, two views Anterior spinal fusion C5-C7 with intact hardware. There is normal alignment. No fracture. No degenerative changes seen. IMPRESSION: Anterior spinal fusion C5-C7 without evidence hardware failure Electronically signed by: JULIA ARAIZA MD Normal [facility] CORONAVIRUS 2019, SCREEN ASY MPTOMATICon 07-05-2021 DATE OF SYMPTOM ONSET [[id number]]? Canceled Normal [facility] Comment on above: Order Comment: TEST CORONAVIRUS 2018, SCREEN ASYMPTOMATIC WAS CANCELLED, 07/05/2021 13:31 ptdid not have test done.. Performed By: #### U ARFX #### [facility] [id number] [place] [address] SARS-CoV-2 (COVID-19) RNA LU+probe Ql (Unsp spec) Canceled Normal [facility] Comment on above: Order Comment: TEST CORONAVIRUS [...] patient management decisions. Fact sheet for providers: https://www.fda.gov/media/090260/download Fact sheet for patients: https://www.fda.gov/media/602255/download This test has received FDA Emergency Use Authorization (EUA) and has been verified by [facility] ([facility]). This test is only authorized for the duration of time that circumstances exist to justify the authorization of the emergency use of in vitro diagnostic tests for the detection of SARS-CoV-2 virus and/or diagnosis of COVID-19 infection under section 564(b)(1) of the Act, 21 U.S.C. 360bbb-3(b)(1), unless the authorization is terminated or revoked sooner. [facility] is certified under CLIA-88 as qualified to perform high complexity testing. Testing is performed in the [facility] laboratories located at [address] [place] [address]. Performed By: #### U ARFX #### [facility] [address] [place] [address] ABO/RH GROUP TESTon 06-21-20 21 ABO TYPE O Normal [facility] Comment on above: Performed By: #### U ARFX #### [facility] [address] [place] [address] RH TYPE Negative Normal [facility] Comment on above: Performed By: #### U ARFX #### [facility] [address] [place] [address] Operative Reports - [facility] Operative Reports - [facility] [address] [place] [address] Patient Name: PAUL. Trena CARR : 1960 Date of Service: 06/21/2021 Patient Location: [place] [address] Patient Type: O Surgeon: Sal Richardson MD [...] anterior plate instrumentation. SURGEON: Sal Richardson MD GATE MANAGER(S): Ad Valdivia MD, chief resident. ANESTHESIA: ESTIMATED [...] current moratorium due to short staffing at [facility]. The patient agreed to have the [...] excellent posi (more content not included)... Normal [facility] Order Reconciliationon 06-21 Order Reconciliation Page 1 [...] a day (more content not included)... Normal [facility] Order Reconciliation Page 1 Admission Reconciliation Document Reconciliation Type: Admission requested on behalf of Cheikh August (Resident) done by Cheikh August (MD (Resident)) Admission - Reconciliation: 21-Jun-2021 06:37 by: Cheikh August ( (Resident)) Home MedicationsEnteredLast Dose TakenReconciled with current Order Reconciliation Comment/ Additional Information celecoxib 200 mg oral capsule 1 cap(s) oral 2 times a [id number] Reviewed and Held gabapentin 300 mg oral capsule 1 tab(s) oral once a [id number] Reviewed and Held hydroxychloroquine 200 mg oral tablet 1 tab(s) oral 2 times a ovk37-Cmx-6094 Hydroxychloroquine Tablet (PLAQUENIL)DOSE = 200 mg Oral 2 Times a Day hydroxychloroquine 200 mg oral tablet continued as the inpatient order Hydroxychloroquine irbesartan 300 mg oral tablet 1 tab(s) oral once a lma37-Kpg-1753 Reviewed and Held NIFEdipine 30 mg oral [...] Pantoprazole Vitamin C 1 3 times a qka50-Asi-9057 Reviewed and Held Vitamin D3 1 3 times a cgi55-Zcd-9111 Reviewed and Held Zinc 140 mg (as elemental zinc 50 mg) oral tablet 1 tab(s) oral once a day 21-Jun-2021 Reviewed and Held Normal [facility] Patient Profile - Preop v3on 06-21-2021 Patient Profile - Preop v3 Patient Profile - Preop: Initial Info: Patient DemographicsName: JAY CARR Date: 1960 Address: [facility] [address] [place] [address] Primary Phone [phone] How to be AddressedPaul Spoken Language PreferredEnglish Source of Informationpatient Stated Reason for Admissionback surgery Primary Contact Name and NumberTreangeline Carr () [phone] Limitations on Visitors/Phone Callsnone Patient Belongings2 bags in pacu, glasses and phone with pt Medications [facility] to [facility]: Weight in kg98.9 kilogram(s) Weight in owu314 pound(s) Weight Methodactual (measured) Scale Typestanding Height [...] Withspouse Living Arrangementshouse Resource/Environmental Concernsnone Anticipated Transition [facility] [facility] Anticipated at Transitionnone Tobacco Use: Tobacco Useno Pre-op Checklist: Arrival [id number] Arrival Time06:43 Procedure TypeC5-7 decompression and fusion [...] 21-Jun-2021 06:45 by Maisha Meyer (ALICE) Normal [facility] CORONAVIRUS 2019, SCREEN ASY MPTOMATICon 06-20-2021 SARS-CoV-2 (COVID-19) RNA LU+probe Ql (Unsp spec) Not detected Normal Not Detected [facility] Comment on above: Result Comment: . This [...] patient management decisions. Fact sheet for providers: https://www.fda.gov/media/082735/download Fact sheet for patients: https://www.fda.gov/media/513652/download This test has received FDA Emergency Use Authorization (EUA) and has been verified by [facility] ([facility]). This test is only authorized for the duration of time that circumstances exist to justify the authorization of the emergency use of in vitro diagnostic tests for the detection of SARS-CoV-2 virus and/or diagnosis of COVID-19 infection under section 564(b)(1) of the Act, 21 U.S.C. 360bbb-3(b)(1), unless the authorization is terminated or revoked sooner. [facility] is certified under CLIA-88 as qualified to perform high complexity testing. Testing is performed in the [facility] laboratories located at [address] [place] [address]. Performed By: #### U ARFX #### [address] [place] [address] Covid 19 Resultson 1 SARS-CoV-2 (COVID-19) RNA [...] You may also be contacted by the [facility] to see if any of your close [...] or Naproxen (Aleve) can also be used. Honm-atm-xvqscot cough and cold medicines can be used according to the instructions on the package. Some nzzb-nnw-yykxnva medicines also contain acetaminophen. Make sure you [...] water are not available, use alcohol-based hand devil tender. Avoid touching your eyes, nose, and mouth [...] 24 mary (more content not included)... Normal [facility] CORONAVIRUS 2019, SCREEN ASY MPTOMATICon 06-19-2021 Lab Specimen Source Nasal, Nasopharyngeal Normal [facility] Comment on above: Performed By: #### U ARFX #### [facility] [address] [place] [id number] BASIC METABOLIC PANELon 12-1 -2020 Anion gap [Moles/Vol] 14 mmol/L Normal 10 - 20 [facility] Comment on above: Performed By: #### B MP #### [facility] [address] [place] [address] Calcium [Mass/Vol] 9.0 mg/dL Normal 8.6 - 10.6 [facility] Comment on above: Performed By: #### B MP #### [facility] [address] [place] [address] Chloride [Moles/Vol] 105 mmol/L Normal 98 - 107 [facility] Comment on above: Performed By: #### B MP #### [facility] [address] [place] [address] Creatinine [Mass/Vol] 0.85 mg/dL Normal 0.50 - 1.30 [facility] Comment on above: Performed By: #### B MP #### [facility] [address] [place] [address] GFR- AM. >60 Normal >60 [facility] Comment on above: Result Comment: CALC ULATIONS OF ESTIMATED GFR ARE PERFORMED USING THE MDRD STUDY EQUATION FOR THE IDMS-TRACEABLE CREATININE METHODS. CLIN CHEM 2007;53:766-72 Performed By: #### B MP #### [facility] [address] [place] [address] GFR-NON AM. >60 Normal >60 [facility] Comment on above: Performed By: #### B MP #### [facility] [address] [place] [address] Glucose [Mass/Vol] 87 mg/dL Normal 74 - 99 [facility] Comment on above: Performed By: #### B MP #### [facility] [address] [place] [address] HCO3 (Bld) [Moles/Vol] 27 mmol/L Normal 21 - 32 [facility] Comment on above: Performed By: #### B MP #### [facility] [address] [place] [address] Potassium [Moles/Vol] 4.7 mmol/L Normal 3.5 - 5.3 [facility] Comment on above: Performed By: #### B MP #### [facility] [address] [place] [address] Sodium [Moles/Vol] 141 mmol/L Normal 136 - 145 [facility] Comment on above: Performed By: #### B MP #### [facility] [address] [place] [address] Urea nitrogen [Mass/Vol] 19 mg/dL Normal 6 - 23 [facility] Comment on above: Performed By: #### B MP #### [facility] [address] [place] [address] CBCon 06-02-2021 Erythrocyte distribution width (RBC) [Ratio] 12.4 % Normal 11.5 - 14.5 [facility] Comment on above: Performed By: #### U A #### [facility] [address] [place] [address] Hematocrit (Bld) [Volume fraction] 43.6 % Normal 41.0 - 52.0 [facility] Comment on above: Performed By: #### U A #### [facility] [address] [place] [address] Hemoglobin (Bld) [Mass/Vol] 14.8 g/dL Normal 13.5 - 17.5 [facility] Comment on above: Performed By: #### U A #### [facility] [address] [place] [address] MCHC (RBC) [Mass/Vol] 33.9 g/dL Normal 32.0 - 36.0 [facility] Comment on above: Performed By: #### U A #### [facility] [address] [place] [address] MCV (RBC) [Entitic vol] 93 fL Normal 80 - 100 [facility] Comment on above: Performed By: #### U A #### [facility] [address] [place] [address] NUCLEATED RBC 0.0 /100 WBC Normal 0.0-0.0 [facility] Comment on above: Performed By: #### U A #### [facility] [address] [place] [address] Platelets (Bld) [#/Vol] 295 10*3/uL Normal 150 - 450 [facility] Comment on above: Performed By: #### U A #### [facility] [address] [place] [address] RBC 4.69 x10E12/L Normal 4.50 - 5.90 [facility] Comment on above: Performed By: #### U A #### [facility] [address] [place] [address] WBC (Bld) [#/Vol] 8.5 10*3/uL Normal 4.4 - 11.3 [facility] Comment on above: Performed By: #### U A #### [facility] [address] [place] [address] COAGULATION SCREENon 021 aPTT Coag (Bld) [Time] 31 s Normal 26 - 39 [facility] Comment on above: Result Comment: Note new reference range as of 05/23/2021 at 10:00am. Performed By: #### U A #### [facility] [address] [place] [address] PT Coag (PPP) [Time] 12.2 s Normal 9.8 - 13.4 [facility] Comment on above: Result Comment: Note new reference range as of 05/23/2021 at 10:00am. Performed By: #### U A #### [facility] [address] [place] [address] PT, INR 1.1 Normal 0.9 - 1.1 [facility] Comment on above: Performed By: #### U A #### [facility] [address] [place] [address] Laboratory - Blood bankon ABO group Nom [...] SCREEN PATIENT: JAY CARR LOCATION: [facility] [place]#: [id number] : 62 AGE: SEX: M ORDERED BY: SAL RICHARDSON SOURCE: ANTERIOR NARES COLLECTED: 06/02/21 10:59 ANTIBIOTICS AT BRAEDEN.: RECEIVED : 06/02/21 13:35 SITE: Nasal R E S U L T S STAPH/MRSA SCREEN FINAL 06/04/21 07:50 NO Staphylococcus aureus ISOLATED. Normal [facility] Comment on above: Performed By: #### S TAPH #### [facility] [address] [place] [address] TH CHEST 2 VIEW PA AND LATon 06-02-2021 TH CHEST 2 VIEW PA AND LAT Patient Name: JAY CARR STUDY: TH CHEST 2 VIEW PA AND LAT; 06/02/2021 11:10 am INDICATION: covid follow up . COMPARISON: None. ACCESSION NUMBER(S): [id number] ORDERING CLINICIAN: SLA RICHARDSON FINDINGS: PA and lateral radiographs of [...] as stated. This study was interpreted at [facility], [place], [place]. Electronically signed by: RANJIT GONZALES MD Normal [facility] TYPE + SCREENon 06-02-2021 ABO TYPE O Normal [facility] Comment on above: Performed By: #### U A #### [facility] [address] [place] [address] RH TYPE Negative Normal [facility] Comment on above: Performed By: #### U A #### [facility] [address] [place] [address] UA MICROSCOPICon 06-02-2021 CA OXALATE CRYSTAL 3+ /HPF Abnormal [facility] Comment on above: Performed By: #### U A #### [facility] [address] [place] [address] Mucus Ql (Urine sed) 4+ /LPF Normal [facility] Comment on above: Performed By: #### U A #### [facility] [address] [place] [address] RBC 11 /HPF Abnormal 0-5 [facility] Comment on above: Performed By: #### U A #### [facility] [address] [place] [address] SQUAMOUS EPITH. CELLS 1 /HPF Normal [facility] Comment on above: Performed By: #### U A #### [facility] [address] [place] [address] WBC 1 /HPF Normal 0-5 [facility] Comment on above: Performed By: #### U A #### [facility] [address] [place] [address] URINALYSIS WITH CULTURE IF I NDICATEDon 06-02-2021 Appearance (U) HAZY Normal CLEAR [facility] Comment on above: Performed By: #### U A #### [facility] [address] [place] [address] Bilirubin Ql (U) Negative Normal NEGATIVE [facility] Comment on above: Performed By: #### U A #### [facility] [address] [place] [address] Color (U) YELLOW Normal STRAW,YELL OW [facility] Comment on above: Performed By: #### U A #### [facility] [address] [place] [address] Glucose Ql (U) Negative Normal NEGATIVE [facility] Comment on above: Performed By: #### U A #### [facility] [address] [place] [address] Hemoglobin Ql (U) Negative Normal NEGATIVE [facility] [place] Comment on above: Performed By: #### U A #### [facility] [address] [place] [address] Ketones Ql (U) Negative Normal NEGATIVE [facility] Comment on above: Performed By: #### U A #### [facility] [address] [place] [address] Leukocyte esterase Test strip Ql (U) Negative Normal NEGATIVE [facility] Comment on above: Performed By: #### U A #### [facility] [address] [place] [address] Nitrite Ql (U) Negative Normal NEGATIVE [facility] Comment on above: Performed By: #### U A #### [facility] [address] [place] [address] pH (U) 5.0 [pH] Normal 5.0 - 8.0 [facility] Comment on above: Performed By: #### U A #### [facility] [address] [place] [address] Protein Ql (U) 100 (2+) Abnormal NEGATIVE [facility] Comment on above: Performed By: #### U A #### [facility] [address] [place] [address] Specific gravity (U) [Rel density] 1.026 Normal 1.005 - 1.035 [facility] Comment on above: Performed By: #### U A #### [facility] [address] [place] [address] Urobilinogen (U) [Mass/Vol] mg/dL Normal 0.0 - 1.9 [facility] Comment on above: Performed By: #### U A #### [facility] [address] [place] [address] Color (U) YELLOW See Below [facility]-Anesthesiol ogy-Ctr [...] 05-23-2021 Lab Specimen Source Nasal, Nasopharyngeal Normal [facility] Comment on above: Order Comment: TEST CORONAVIRUS 2019, SCREEN ASYMPTOMATIC WAS CANCELLED, 07/05/2021 13:31 ptdid not have test done.. Performed By: #### U ARFX #### [facility] [address] [place] [address] Tobacco Screening.on 021 Fall risk assessment a) [...] COMPARISON: Lumbosacral spine radiographs 02/09/2021 ACCESSION NUMBER(S): [id number] ORDERING CLINICIAN: TONJA GERARDO TECHNIQUE: Sagittal and [...] degenerative disc height loss at L2-L3 with frrn-it-xfxlsexk height loss at L1-L2. Conus: The lower [...] right, without spinal canal stenosis. There is yqcx-cu-hnwjxbgs right and mild left neural foraminal narrowing. [...] as stated. This study was interpreted at [facility], [place], [place]. Electronically signed by: STEVE YANG MD Normal [facility] No Panel Informationon 02-09 Normal [facility] Work Phone: Please click on the link to view the study images Normal [facility] Work Phone: SPINE, LUMBOSACRAL; MIN 4 EWSon 02-09-2021 SPINE, LUMBOSACRAL; MIN 4 VIEWS Patient Name: JAY CARR STUDY: Lumbar Spine, 4 views. INDICATION: Low back pain COMPARISON: None. ACCESSION NUMBER(S): [id number] ORDERING CLINICIAN: TONJA GERARDO FINDINGS: Grade 1 [...] Electronically signed by: JOSE GOEL MD Normal [facility] MRI L-Ext Joint w/o Contrast LTon [...] formation. No other focal left hip abnormality. Perico Starr thanks you for the opportunity to care for your patient. Workstation ID: [id number] FINAL REPORT Dictated By: Batsheva Brown MD 01/12/2021 08:43 Assigned Physician: Batsheva Brown MD Reviewed and Electronically Signed By: Batsheva Brown MD 01/12/2021 09:09 Transcribed by: CAROLINA 01/12/2021 08:43 Technologist: AMANDA Blanc [facility] Basic metabolic 2000 panelon 11-10-2020 Calcium [Mass/Vol] 9.5 mg/dL Normal 8.5-10.6 [facility] Chloride [Moles/Vol] 104 mmol/L Normal 98-107 [facility] CO2 [Moles/Vol] 28 mmol/L Normal 21-32 [facility] Creatinine [Mass/Vol] 0.85 mg/dL Normal 0.55-1.02 Lianna [facility] Glucose [Mass/Vol] 112 mg/dL High 70-99 [facility] Potassium [Moles/Vol] 4.2 mmol/L Normal 3.5-5.1 Lianna [facility] Sodium [Moles/Vol] 142 mmol/L Normal 136-145 [facility] Urea nitrogen (BldV) [Mass/Vol] 20 mg/dL High 7.0-18.0 [facility] Urea nitrogen/Creatinine [Mass ratio] 24 mg/mg Normal [facility] CBC W Auto Differential pane l (Bld)on 11-10-2020 Basophils (Bld) [#/Vol] 0.0 thou/mcL Normal 0.0-0.2 [facility] Basophils/100 WBC (Bld) 0.5 % Normal 0-3 [facility] Differential cell count method Nom (Bld) AUTOMATED DIFFERENTIAL Normal [facility] Eosinophils (Bld) [#/Vol] 0.1 thou/mcL Normal 0.0-0.4 [facility] Eosinophils/100 WBC (Bld) 0.9 % Normal 0-7 [facility] Erythrocyte distribution width (RBC) [Entitic vol] 13.0 % Normal 11.7-15.0 [facility] Hematocrit (Bld) [Volume fraction] 43.4 % Normal 34.0-50.0 [facility] Hemoglobin (Bld) [Mass/Vol] 15.0 g/dL Normal 11.5-17.0 [facility] Lymphocytes (Bld) [#/Vol] 1.0 thou/mcL Normal 0.7-4.5 [facility] Lymphocytes/100 WBC (Bld) 15.6 % Normal 14-46 [facility] MCH (RBC) [Entitic mass] 32.5 Picograms Normal 27.0-34.0 [facility] MCHC (RBC) [Mass/Vol] 34.6 g/dL Normal 32.0-36.0 Lianna [facility] MCV (RBC) [Entitic vol] 94.0 fL Normal 80-98 [facility] Monocytes (Bld) [#/Vol] 0.6 thou/mcL Normal 0.1-1.0 [facility] Monocytes/100 WBC (Bld) 9.8 % Normal 4-13 [facility] Neutrophils (Bld) [#/Vol] 4.7 thou/mcL Normal 1.5-7.8 [facility] Neutrophils/100 WBC (Bld) 73.2 % Normal 40-74 [facility] Platelet mean volume (Bld) [Entitic vol] 9.4 fL Normal 7.5-11.2 [facility] Platelets (Bld) [#/Vol] 220 thou/mcL Normal 140-415 [facility] RBC (Bld) [#/Vol] 4.62 x(10)6/mcL Normal 3.80-5.60 Mo [facility] WBC (Bld) [#/Vol] 6.5 thou/mcL Normal 4.0-10.5 [facility] PT Coag (PPP) [Time]on 11-10 INR Coag (Bld) [Relative time] 0.9 {INR} Normal [facility] Comment on above: Result Comment: ENRRIQUE GRIMES THE INDUCTION PHASE OF ORAL ANTICOAGULATION, THE INR MAY NOT REFLECT THE ANTICOAGULANT STATUS OF THE PATIENT. THERAPEUTIC RANGES FOR INR'S ARE: MOST CLINICAL SITUATIONS: INR 2.0-3.0 MECHANICAL PROSTHETIC VALVES: INR 2.5-3.5 CRITICAL: INR 5.0 Prothrombin Timeon PT Coag (PPP) [Time] 12.6 s Normal 11.9-14.6 [facility] aPTT Coag (Bld) [Time]on aPTT Coag (PPP) [Time] 38.6 s High 23.2-34.6 Mo [facility] Vital Signs Date Time Vital Sign Value Performing Clinician Facility 04-08-2023 10:38-0400 Blood Pressure Location Shun [facility] 04-08-2023 10:38-0400 Diastolic blood pressure 82 mm[Hg] Shun [facility] [employer] [facility] 04-08-2023 10:38-0400 Heart rate 71 /min ShunAGNITiO [facility] 04-08-2023 10:38-0400 Systolic blood pressure 154 mm[Hg] ShunAGNITiO [facility] 10-16-2022 14:18-0400 Blood Pressure Location Shun [facility] [employer] [facility] 10-16-2022 14:18-0400 Diastolic blood pressure 94 mm[Hg] Shun [facility] [employer] [facility] 10-16-2022 14:18-0400 Heart rate 72 /min Shun Billy [employer] [facility] 10-16-2022 14:18-0400 Systolic blood pressure 186 mm[Hg] Shun [facility] [facility] 10-02-2022 13:36-0400 Blood Pressure Location Arely LOGAN [facility] 10-02-2022 13:36-0400 Diastolic blood pressure 80 mm[Hg] Arely LOGAN [facility] [place] 10-02-2022 13:36-0400 Heart rate 76 /min Arely LOGAN [facility] [place] 10-02-2022 13:36-0400 Respiratory rate 16 /min Arely LOGAN [facility] [place] 10-02-2022 13:36-0400 Systolic blood pressure 144 mm[Hg] Arely LOGAN [facility] [place] 02-15-2022 14:19-0400 Diastolic blood pressure 95 mm[Hg] MD Audrye Armstrong Work Phone: [facility] 02-15-2022 14:19-0400 Heart rate 66 /min MD Audrey Armstrong Work Phone: [facility] 02-15-2022 14:19-0400 Respiratory rate 16 /min MD Audrey Armstrong Work Phone: [facility] 02-15-2022 14:19-0400 SaO2% (BldA) [Mass fraction] 99 % MD Audrey Armstrong Work Phone: [facility] 02-15-2022 14:19-0400 Systolic blood pressure 170 mm[Hg] MD Audrey Armstrong Work Phone: [facility] 02-15-2022 13:04-0400 Inhaled oxygen flow rate 6 L/min MD Audrey Armstrong Work Phone: [facility] 02-15-2022 12:00-0400 Body weight 42 mg MD Audrey Armstrong Work Phone: [facility] 02-15-2022 10:03-0400 Body height 175.26 cm MD Audrey Armstrong Work Phone: [facility] 02-15-2022 10:03-0400 Body mass index (BMI) [Ratio] 31.3 kg/m2 MD Audrey Armstrong Work Phone: [facility] 02-15-2022 10:03-0400 Body weight 96.16 kg MD Audrey Armstrong Work Phone: [facility] 02-15-2022 07:29-0400 Body temperature 98.8 [degF] MD Audrey Armstrong Work Phone: [facility] 01-24-2022 13:59-0400 Blood Pressure Location Arely NILL [facility] [place] 01-24-2022 13:59-0400 Diastolic blood pressure 74 mm[Hg] Arely NILL [facility] [place] 01-24-2022 13:59-0400 Heart rate 72 /min Arely NILL [facility] [place] 01-24-2022 13:59-0400 Respiratory rate 16 /min Arely NILL [facility] [place] 01-24-2022 13:59-0400 Systolic blood pressure 140 mm[Hg] Arely NILL [facility] [place] 01-19-2022 16:45-0400 Diastolic blood pressure 84 mm[Hg] MD Audrey Armstrong Work Phone: [facility] 01-19-2022 16:45-0400 Heart rate 70 /min MD Audrey Armstrong Work Phone: [facility] 01-19-2022 16:45-0400 Respiratory rate 16 /min MD Audrey Armstrong Work Phone: [facility] 01-19-2022 16:45-0400 SaO2% (BldA) [Mass fraction] 98 % MD Audrey Armstrong Work Phone: [facility] 01-19-2022 16:45-0400 Systolic blood pressure 148 mm[Hg] MD Audrey Armstrong Work Phone: [facility] 01-19-2022 15:04-0400 Body height 177.8 cm MD Audrey Armstrong Work Phone: [facility] 01-19-2022 15:04-0400 Body mass index (BMI) [Ratio] 31.2 kg/m2 MD Audrey Armstrong Work Phone: [facility] 01-19-2022 15:04-0400 Body weight 98.8 kg MD Audrey Armstrong Work Phone: [facility] 01-19-2022 14:24-0400 Body temperature 98.6 [degF] MD Audrey Armstrong Work Phone: [facility] 09-27-2021 09:44-0400 Body temperature 97.88 [degF] Audrey Cruzy Other Phone: [facility] 09-27-2021 09:44-0400 Diastolic blood pressure 74 mm[Hg] Audrey Cruzy Other Phone: [facility] 09-27-2021 09:44-0400 Heart rate 89 /min Audrey Anthonyy Other Phone: [facility] 09-27-2021 09:44-0400 Respiratory rate 18 /min Audrey Hoy Other Phone: [facility] 09-27-2021 09:44-0400 SaO2% (BldA) [Mass fraction] 94 % Audrey Hoy Other Phone: [facility] 09-27-2021 09:44-0400 Systolic blood pressure 149 mm[Hg] Audrey Cruzy Other Phone: [facility] 03-16-2021 08:34-0400 Body weight 101.86 kg No [...] Facility Start: 04-13-2024 ambulatory Shun MACHADO Facility : [facility] Start: 11-19-2023 End: 11-19-2023 Patient encounter procedure MD Audrey Armstrong Work Phone: [facility] [address] Work Phone: Start: 11-19-2023 End: 11-19-2023 ambulatory MD Audrey Armstrong Work Phone: [facility] Work Phone: Start: 08-28-2023 End: 08-28-2023 ambulatory STEFANIE KNIGHT Not Available Start: 08-26-2023 End: 08-26-2023 ambulatory PB YADIRA Not Available Start: 07-30-2023 End: 07-30-2023 ambulatory GENE KELBLEY Not Available Start: 07-25-2023 End: 07-25-2023 ambulatory STEFANIE KNIGHT Not Available Start: 07-23-2023 End: 07-23-2023 ambulatory GENE KELBLEY Not Available Start: 07-18-2023 End: 07-19-2023 ambulatory GENE KELBLEY Not Available Start: 07-18-2023 End: 07-18-2023 Patient encounter procedure MD Audrey Armstrong Work Phone: [facility] [address] Work Phone: Start: 07-18-2023 End: 07-18-2023 ambulatory MD Audrey Armstrong Work Phone: [facility] Work Phone: Start: 07-16-2023 End: 07-16-2023 ambulatory GENE KELBLEY Not Available Start: 07-09-2023 End: 07-09-2023 ambulatory STEFANIE KNIGHT Not Available Start: 04-08-2023 End: 04-09-2023 ambulatory Shun MACHADO Facility:[facility] Start: 04-08-2023 End: 04-08-2023 Patient encounter procedure Shun MACHADO [facility] Start: 03-12-2023 End: 03-12-2023 ambulatory ANTWAN Payne BO Facility:[facility] Start: 02-19-2023 End: 02-19-2023 Patient encounter procedure MD Audrey Armstrong Work Phone: [facility] [address] Work Phone: Start: 02-19-2023 End: 02-19-2023 ambulatory MD Audrey Armstrong Work Phone: [facility] Work Phone: Start: 10-16-2022 End: 10-17-2022 ambulatory Shun Mirza CHRIS Facility:[facility] Start: 10-16-2022 End: 10-16-2022 Patient encounter procedure Shun MACHADO [facility] Start: 10-15-2022 End: 10-15-2022 ambulatory MD Audrey Armstrong Work Phone: [facility] Work Phone: Start: 10-15-2022 End: 10-15-2022 Patient encounter procedure MD Audrey Armstrong Work Phone: [facility] [address] Work Phone: Start: 10-02-2022 End: 10-03-2022 ambulatory Arely LOGAN Facility: [place] Start: 10-02-2022 End: 10-02-2022 Patient encounter procedure Arely LOGAN [facility] [place]/Said [place] Start: 09-11-2022 End: 09-11-[address] AUDREY ARMSTRONG . Facility:[facility]1 Start: 09-05-2022 [facility] Start: 08-31-2022 End: 09-01-[address] ARELY LOGAN . Facility:[facility] Start: 08-27-2022 Chart Update Audrey Armstrong Work Phone: BT-Avaisvnhmqqn-Xsqctia -Judaism Work Phone: Start: 08-16-2022 End: 08-17-2022 ambulatory WADE OMAR Facility:[facility] Start: 07-19-2022 End: 07-20-2022 ambulatory WADEMARTHA NELSON Facility:[facility]1 Start: 07-06-2022 End: 07-07-[address] AUDREY ARMSTRONG . Facility:[facility]1 Start: 06-19-2022 Encounter for preprocedural laboratory examination JENI Albrecht [facility] Start: 06-07-2022 End: 06-08-[address] AUDREY ARMSTRONG . Facility:H1 Start: 06-04-2022 End: 06-05-[address] AUDREY ARMSTRONG . Facility:H1 Start: 06-04-2022 End: 06-05-2022 Encounter for preprocedural laboratory examination DR AUDREY ARMSTRONG . Facility:[facility]1 Start: 05-31-2022 Encounter for preprocedural cardiovascular examination [facility] Trena [facility] Start: 05-25-2022 End: 05-26-2022 [facility] Start: 05-25-2022 End: 05-26-2022 Encounter for preprocedural cardiovascular examination JENI SAEED Facility:[facility]1 Start: 05-23-[address] AUDREY ARMSTRONG . Facili ty:H1 Start: 05-23-2022 End: 05-23-2022 ambulatory MD Audrey Armstrong Work Phone: [facility] Work Phone: Start: 05-23-2022 End: 05-23-2022 Patient encounter procedure MD Audrey Armstrong Work Phone: [facility] [address] Start: 05-02-2022 ambulatory Mr. Kenton Lawson Fa cility:[facility] Start: 05-02-2022 Office outpatient vi sit 25 minutes Audrey Kassandra Leandra Work Phone: XW-Fhgbdrboyahc-Abbkicp 5FL DO Work Phone: Start: 03-30-2022 Encounter for genera l adult medical examination without abnormal findings DR AUDREY ARMSTRONG . [facility] Start: 03-28-2022 End: 03-29-[address] AUDREY ARMSTRONG . Facility:H1 Start: 03-28-2022 End: 03-29-2022 Encounter for general adult medical examination without abnormal findings DR AUDREY ARMSTRONG . Facility:H1 Start: 02-15-2022 End: 02-15-2022 Admission to same day surgery center MD Audrey Armstrong Work Phone: [facility] [place] Start: 02-14-2022 End: 02-15-2022 ambulatory JENI Trena SAEED Facility:H1 Start: 02-13-2022 End: 02-13-2022 Patient encounter procedure MD Audrey Armstrong Work Phone: [facility] Start: 01-30-2022 End: 01-30-2022 Patient encounter procedure Shun MACHADO [facility] Start: 01-29-2022 End: 01-30-[address] AUDREY ARMSTRONG . Facility:H1 Start: 01-29-2022 ambulatory Audrey Armstrong Fac ility:[facility] Start: 01-29-2022 Office outpatient vi sit 15 minutes Audrey Armstrong Work Phone: TK-Bkqwrwwfjnvf-Kdtonpk 5FL DO Work Phone: Start: 01-29-2022 ambulatory Mr. Kenton Lawson Fa cility:[id number] Start: 01-24-2022 End: 01-24-2022 Patient encounter procedure Arely LOGAN [facility] Nill/Said [place] Start: 01-19-2022 End: 01-19-2022 Admission to same day surgery center MD Audrey Armstrong Work Phone: [facility] [place] Start: 01-17-2022 End: 01-17-2022 Patient encounter procedure MD Audrey Armstrong Work Phone: [facility] Start: 01-11-2022 End: 01-12-[address] SHUN MACHADO Facility:H1 Start: 01-09-2022 End: 01-09-[address] LAURY ZEPEDA Facility:H1 Start: 01-05-2022 End: 01-06-[address] AUDREY ARMSTRONG . Facility:H1 Start: 12-27-2021 End: 12-28-[address] AUDREY ARMSTRONG . Facility:H1 Start: 12-09-2021 End: 12-10-[address] AUDREY ARMSTRONG . Facility:H1 Start: 11-09-2021 Chart Update Audrey Kassandra Armstrong Work Phone: HN-Imgkdrjbqnkl-Pnnkzq 210 Work Phone: Start: 11-08-2021 Postop follow up vis it related to original px Audrey Cannon Leandra Work Phone: VK-Oiqjzczchpzc-Ntnvzsh 5FL DO Work Phone: Start: 11-08-2021 POV, Provider: Kenton Lawson, Status: Pen, Time: 11:00 AM Audreyharriet Armstrong Work Phone: BB-Dolqzrfgelqk-Zrpwrr 210 Work Phone: Start: 11-08-2021 ambulatory Audrey Armstrong Fac ility:[facility] Start: 11-07-2021 AUDIT Audrey Kassandra Leandra Work Phone: DT-Jobffcmmukoq-Bnagki 210 Work Phone: Start: 09-26-2021 End: 09-27-2021 Evaluation and management of inpatient Sal Richardson [facility] [id number] Start: 09-19-2021 AUDIT Audrey Armstrong Work Phone: ZZ-Bqfnnfxbaqojpi-Rro for Perioperative Med Work Phone: Start: 09-19-2021 ambulatory Audrey Rivera ility:[facility] Start: 09-19-2021 Encounter for blood typing Dr. SAL RICHARDSON [facility] Start: 09-19-2021 Encounter for preprocedural laboratory examination Dr. SAL RICHARDSON [facility] Start: 08-23-2021 Office outpatient vi sit 40 minutes Audrey Armstrong Work Phone: LQ-Urkcdvwhfrzr-Avxgmrl ng-Judaism Work Phone: Start: 08-23-2021 ambulatory Audrey Armstrong Fac ility:[facility] Start: 08-03-2021 Office outpatient vi sit 25 minutes Audrey Armstrong Work Phone: HL-Jokloicbzsvw-Qyzccv 210 Work Phone: Start: 08-03-2021 ambulatory Referral Self Facility: [id number] Start: 06-21-2021 End: 06-21-2021 ambulatory Audrey Armstrong Facility:[facility] Start: 06-02-2021 AUDIT No PCP None [facility] Work Phone: Start: 06-02-[address] SAL RICHARDSON Facility:[facility] Start: 06-02-[address] SAL RICHARDSON Facility:[facility] Start: 06-02-2021 Encounter for other preprocedural examination Dr. SAL RICHARDSON [facility] Start: 06-02-2021 Encounter for preprocedural cardiovascular examination Dr. SAL RICHARDSON [facility] Start: 05-03-2021 Office outpatient vi sit 40 minutes No PCP None DB-Rpuamqsklxsy-Nldoqjq ng-Judaism Work Phone: Start: 03-16-2021 NPV, Provider: Nazario Holloway, Status: Pen, Time: 8:30 AM No PCP None [facility] Work Phone: Start: 03-16-2021 Office outpatient ne w 30 minutes No PCP None [facility] Work Phone: Start: 03-16-2021 Patient encounter procedure No PCP None [facility] Work Phone: Start: 03-13-2021 Office consultation new/estab patient 80 min No PCP None [facility] Work Phone: Start: 03-10-2021 Chart Update No PCP None [facility] [address] Work Phone: Start: 03-06-2021 Telephone encounter No PCP None [facility] Work Phone: Start: 02-12-2021 Chart Update No PCP None [facility] [address] Work Phone: Start: 02-09-2021 Office outpatient ne w 45 minutes No PCP None HT-Ynhzplgdkzwa-Idvfib 210 Work Phone: Start: 02-08-2021 AUDIT No PCP None [facility] [address] Work Phone: Procedures Date Procedure Procedure Detail Performing Clinician Start: 06-07-2022 Fusion of Right Tars al Joint with Synthetic Substitute, Open Approach JENI SAEED Start: 06-07-2022 Transfer Right Foot Tendon, Open Approach JENI SAEED Start: 03-28-2022 PSA screening JENI CONNOR Comment on above: Performed By: #### P [facility] #### [facility] [address] [place] [address] Dr. Carolyn King Start: 02-15-2022 Cystoscopy MD [...] Performed By: #### T +S #### [facility] [address] [place] [address] Start: 06-02-[address] ASIA RICHARDSON Comment on above: Performed By: #### U A #### [facility] [address] [place] [address] Arthroplasty of knee Arely NILL Colonoscopy Arely NILL Excision of cervical intervertebral disc Arely NILL Excision of melanoma Arely NILL Fusion of lateral jeff mbar interbody Arely NILL Fusion of tarsal joints Ricardo ael NILL Plan of Treatment Date Care Activity Detail Author Start: 11-19-2023 Hemolytic complement CH50 level [facility] Start: 07-18-2023 Hemolytic complement CH50 level [facility] Start: 02-19-2023 Hemolytic complement CH50 level [facility] Start: 10-15-2022 Hemolytic complement CH50 level [facility] Start: 09-26-2022 FUV, Provider: Kenton Lawson, Status: Pen, Time: 9:30 AM FUV, Provider: Kenton Lawson, Status: Pen, Time: 9:30 AM JA-Ituahwknbxea-Rtmyaab 5FL DO Work Phone: Start: 05-23-2022 Hemolytic complement CH50 level [facility] Start: 05-02-2022 FUV, Provider: Kenton Lawson, Status: Pen, Time: 9:00 AM FUV, Provider: Kenton Lawson, Status: Pen, Time: 9:00 AM ZA-Cvsjtsesllnu-Ywjvrvz 5FL DO Work Phone: Start: 02-15-2022 End: 02-15-2022 [facility] Work Phone: Start: 02-15-2022 Cystoscopy OR Cysto/Retro/Stent/Ston e/Holmium Laser (Right) [facility] Start: 02-15-2022 Diagnostic radiograp hy of abdomen XR KUB [facility] Start: 02-15-2022 End: 02-15-2022 Admission to same day surgery center Departed Surgical Day Care [facility] [place] Start: 02-13-2022 End: 02-13-2022 Patient encounter procedure Departed Clinical [facility] Start: 01-19-2022 End: 01-19-2022 [facility] Work Phone: Start: 01-15-2022 FUV, Provider: Kenton Lawson, Status: Pen, Time: 10:00 AM FUV, Provider: Kenton Lawson, Status: Pen, Time: 10:00 AM FI-Uhaobkoqrlss-Jmeqzxu 5FL DO Work Phone: Start: 11-08-2021 Patient encounter procedure [facility] Start: 09-27-2021 End: 09-28-2022 Sodium Chloride 0.9% Injectable Flush Peripheral Line ; via Peripheral LineVolume = 10 mL IntraVenous Flush Every 8 Hours and as Needed Start: 27-Sep-2021 End: 27-Sep-2022 Ordered: 27-Sep-2021 Timothy Steinberg [facility] Start: 09-27-2021 End: 09-28-2022 oxyCODONE Immediate Release 10 mg Oral Tablet Every 4 Hours ; Tablet (OXYIR, ROXICODONE)DOSE = 10 mg Oral Every 4 Hours, PRN Pain - Severe (7-10) Start: 27-Sep-2021 End: 27-Sep-2022 Ordered: 27-Sep-2021 Timothy Steinberg Intent [facility] Start: 09-26-2021 End: 09-27-2022 [facility] Comment on above: HOLD LINE AND FRAME POLER Infusion an d notify H.O. immediately Start: 09-26-2021 [facility] Provider: Sal Richardson, Status: Pen, Time: 7:30 AM [facility], Provider: Sal Richardson, Status: Pen, Time: 7:30 AM BS-Mzqznmgtgjrlcr-Mxn for Perioperative Med Work Phone: Start: 08-30-2021 FUV, Provider: Sal Richardson, Status: Pen, Time: 11:15 AM FUV, Provider: Sal Richardson, Status: Pen, Time: 11:15 AM UT-Elipvrfoqpob-Svzxxn 210 Work Phone: Start: 08-30-2021 FUV, Provider: Sal Richardson, Status: Pen, Time: 11:00 AM FUV, Provider: Sal Richardson, Status: Pen, Time: 11:00 AM KM-Janbkiufdfmu-Hozfvc 210 Work Phone: Start: 06-09-2021 [facility], Provider: Sal Richardson, Status: Pen, Time: 7:30 AM [facility], Provider: Sal Richardson, Status: Pen, Time: 7:30 AM GS-Mjbtedwrkhurwe-Wzy for Perioperative Med Work Phone: Start: 03-22-2021 [facility], Provider: Nazario Holloway, Status: Pen, Time: 9:40 AM [facility], Provider: Nazario Holloway, Status: Pen, Time: 9:40 AM [facility] Work Phone: Start: 03-13-2021 FUV, Provider: Sal Richardson, Status: Pen, Time: 2:15 PM FUV, Provider: Sal Richradson, Status: Pen, Time: 2:15 PM TD-Uxtqhcvpopbz-Yxjimu 210 Work Phone: Complement C3 [Mass/volume] in Serum or Plasma [facility] Work Phone: Complement C3 [Mass/volume] in Serum or Plasma [facility] Complement C3 [Mass/volume] in Serum or Plasma [facility] Complement C3 [Mass/volume] in Serum or Plasma [facility] Complement C4 [Mass/volume] in Serum or Plasma [facility] Work Phone: Complement C4 [Mass/volume] in Serum or Plasma [facility] Complement C4 [Mass/volume] in Serum or Plasma [facility] Complement C4 [Mass/volume] in Serum or Plasma [facility] Hemolytic complement CH50 level [facility] Work Phone: Patient referral [facility] Work Phone: Immunizations Immunization Date Immunization Notes Care Provider [facility] 03-27-2022 influenza virus vaccine, unspecified formulation Arely LOGAN [facility] 11-21-2021 SARS-CoV-2 mRNA (wiqfaslkvxx-eabh-aalm ose) vaccine Arely LOAGN [facility] 09-22-2021 SARS-CoV-2 (COVID-19 ) mRNA BNT-162b2 vax Arely LOGAN [facility] 06-26-2021 Pfizer-BioNTech COVID-19 Vacc 30 MCG/0.3ML Intramuscular Suspension Audrey Armstrong Work Phone: [facility] 05-01-2021 influenza virus vaccine, unspecified formulation Shun MACHADO [facility] 05-01-2021 Influenza, injectabl e, Madin Charissa Canine Kidney, preservative free, quadrivalent Audrey Armstrong Work Phone: NI-Tijotbnhycpu-Et sman 210 Work Phone: 10-06-2020 Pfizer-BioNTech COVID-19 Vacc 30 MCG/0.3ML Intramuscular Suspension No PCP None [facility] 09-13-2020 Pfizer-BioNTech COVID-19 Vacc 30 MCG/0.3ML Intramuscular Suspension No PCP None [facility] 06-24-2020 SARS-CoV-2 (COVID-19 ) mRNA BNT-162b2 angelinex Arely LOGAN [facility] [place] 05-04-2020 influenza virus vaccine, unspecified formulation Shun MACHADO [facility] 05-04-2020 Influenza, injectabl e, Madin [place] Canine Kidney, preservative free, quadrivalent No PCP None TS-Davyxykgtbdq-Db sman 210 Work Phone: 05-04-2020 pneumococcal conjuga te vaccine, 13 valent No PCP None [facility] 04-06-2020 influenza virus vaccine, unspecified formulation Shun MACHADO [facility] 04-06-2020 influenza, seasonal, injectable No PCP None IR-Xgcjpnfyyjnm-Pz sman 210 Work Phone: 10-25-2011 hepatitis A vaccine, adult dosage No PCP None [facility] 10-25-2011 hepatitis B vaccine, pediatric or pediatric/adolescent dosage No PCP None [facility] 03-30-2011 hepatitis A vaccine, adult dosage No PCP None [facility] 03-30-2011 hepatitis B vaccine, pediatric or pediatric/adolescent dosage No PCP None [facility] 02-15-2011 hepatitis B vaccine, pediatric or pediatric/adolescent dosage No PCP None [facility] 01-20-1998 hepatitis B vaccine, adult dosage No PCP None [facility] 02-24-1997 hepatitis B vaccine, adult dosage No PCP None [facility] 11-11-1996 hepatitis B vaccine, adult dosage No PCP None [facility] 11-02-1996 TD(adult) unspecifie d formulation; Translations: [Td(adult) unspecified formulation] No PCP None [facility] NEGATED: Highlighted row has not occurred!04-15-2019 influenza virus vaccine, unspecified formulation Arely LOGAN [facility] [place] Payers Date Payer Category Payer Self-pay [id number] 2023 Unknown [id number] 2022 Medicare [id number] 1960 Unknown [id number] 2.16. 840.1.836285.3.579.2.356 1961 Unknown [id number] 2.16. 840.1.275345.3.579.2.356 1961 Unknown [id number] 2.16. 840.1.499683.3.579.2.356 1961 Unknown [id number] 2.16. 840.1.808261.3.579.2.356 1961 Unknown [id number] 2.16. 840.1.652621.3.579.2.356 1961 Unknown [id number] 2.16. 840.1.814437.3.579.2.356 1961 Unknown [id number] 2.16. 840.1.955922.3.579.2.356 1961 Unknown [id number] 2.16. 840.1.877736.3.579.2.356 1961 Unknown [id number] 2.16. 840.1.219087.3.579.2.356 1961 Unknown [id number] 2.16. 840.1.188063.3.579.2.356 1961 Unknown [id number] 2.16. 840.1.091073.3.579.2.356 1961 Unknown [id number] 2.16. 840.1.724466.3.579.2.356 1961 Unknown [id number] 2.16. 840.1.321647.3.579.2.356 1961 Unknown [id number] 2.16. 840.1.559142.3.579.2.356 1961 Unknown [id number] 2.16.84 0.1.486352.3.579.2.593 1961 Unknown [id number] 2.16.84 0.1.295242.3.579.2.593 1961 Unknown [id number] 2.16.84 0.1.479613.3.579.2.593 1961 Unknown [id number] 2.16.84 0.1.089811.3.579.2.593 1961 Unknown [id number] 2.16.84 0.1.094630.3.579.2.593 1961 Unknown [id number] 2.16.84 0.1.737590.3.579.2.593 1961 Unknown [id number] 2.16.84 0.1.193241.3.579.2.593 1961 Unknown [id number] 2.16.84 0.1.678690.3.579.2.593 1961 Unknown [id number] 2.16.84 0.1.464421.3.579.2.593 1961 Unknown [id number] 2.16.84 0.1.036494.3.579.2.593 1961 Unknown [id number] 2.16.84 0.1.315227.3.579.2.593 1961 Unknown [id number] 2.16.84 0.1.447706.3.579.2.593 1961 Unknown [id number] 2.16.84 0.1.231747.3.579.2.593 1961 Unknown [id number] 2.16.84 0.1.366036.3.579.2.593 1961 Unknown [id number] 2.16.84 0.1.190233.3.579.2.593 1961 Unknown [id number] 2.16.84 0.1.286336.3.579.2.593 1961 Unknown [id number] 2.16.84 0.1.986328.3.579.2.593 1961 Unknown [id number] 2.16.84 0.1.448548.3.579.2.593 1961 Unknown [id number] 2.16.84 0.1.683427.3.579.2.593 1961 Unknown [id number] 2.16.8 40.1.861536.3.579.2.727 1961 Unknown [id number] 2.16.8 40.1.167964.3.579.2.727 1961 Unknown [id number] 2.16.8 40.1.754300.3.579.2.727 1961 Unknown [id number] 2.16.8 40.1.869965.3.579.2.727 1961 Unknown [id number] 2.16.84 0.1.848255.3.579.2.1259 1961 Unknown [id number] 2.16.84 0.1.297310.3.579.2.1259 1961 Unknown [id number] 2.16.84 0.1.047794.3.579.2.1259 1961 Unknown [id number] 2.16.84 0.1.777808.3.579.2.1259 1961 Unknown [id number] 2.16.84 0.1.152511.3.579.2.1259 1961 Unknown [id number] 2.16.84 0.1.067003.3.579.2.1259 1961 Unknown [id number] 2.16.84 0.1.375268.3.579.2.1259 1961 Unknown [id number] 2.16.84 0.1.667022.3.579.2.1259 1959 Unknown [id number] 1959 Unknown [id number] Unknown Unknown [facility] [id number] Unknown [id number] Unknown [id number] 2.16.8 40.1.545065.3.579.2.531 Unknown [id number] 2.16.8 40.1.919689.3.579.2.531 Unknown [id number] 2.16.8 40.1.935125.3.579.2.531 Social History Date Type Detail Facility [facility] Tobacco smoking consumption unknown [facility] Start: 01-24-2022 End: 02-15-2022 Tobacco smoking status Never smoked tobacco (finding) [facility] Work Phone: Tobacco smoking status Never General Surgery Antoine Sex Assigned At Male [facility] [place] Start: 1960 Sex Assigned At Male F [facility] Medical Equipment Procedure Code Equipment Code Equipment Origin al Text Equipment Identifier Dates Cystoscopy, with ureteral calculus manipulation and stent placement Polymeric ureteral stent ([id number] [facility] Start: 02-15-2022 Cystoscopy, with ureteral calculus manipulation and stent placement Polymeric ureteral stent [id number] [facility] Start: 01-19-2022 Goals Date Patient Goal Desired Activity /State Functional Status Date Assessment Result Facility 04-08-2023 Functional Status N/A [facility] 10-16-2022 Functional Status N/A [facility] 10-02-2022 Functional Status N/A General [facility] gabrielle Schultz 01-30-2022 Functional Status N/A [facility] 01-24-2022 Functional Status N/A General Thacker gabrielle Schultz Functional observable [facility] Mental Status Date Assessment Result Facility 09-26-2021 Cognitive functions 27-Sep-19 2212:26 [facility] Clinical Notes 10-31-2020 to 04-08-2023 RadiologyRadiology<item><item><item><item><item><item><item> Note [...] include: ?8 oz (237 mL) of milk, bhyvvlj-slbqfliudugn-jemtc milk, and calcium-fortifiedfruit juice. Calcium-fortified means that [...] ?Spinach (cooked), rhubarb, beets, sweet potatoes, and Ivorian chard. ?Peanuts. ?Potato chips, northern irish fries, and baked potatoes with skin on. ?Nuts and nut products. ?Chocolate. If you regularly take a diuretic medicine, make sure to eat at least 1 or 2 servings of fruits or vegetables that are high in potassium each day. These include: ?Avocado. ?Banana. ?Mccormick, prune, carrot, or tomato juice. ?Baked potato. [...] magnesium, fish oil, or vitamin B6. Take qbnh-exb-ynlfjmg and prescription medicines only as told by [...] Casseroles. Pizza. Lasagna. Frozen meals. Potato chips. Estonian fries. The items listed above may not [...] provider. Document Revised: 02/19/2022 Document Reviewed: 02/19/2022 [employer] Patient Education 2022 [place]. Follow Up Care 10/16/2022 15:04:55 With:CHRIS RIVERA, Shun Mirza, URL Address: [facility] [employer] [address] [place], [place] [id number]- When: Unknown [facility] 03-12-2023 Note HNO ID: [id number] Author: Antwan Soriano MD Service: ? Author [...] next visit: No PCP: Audrey Armstrong MD [address] [facility] [id number] FELLOW / RESIDENT: No fellow or resident assisted in this office visit. Antwan Soriano MD [facility] 10-16-2022 Hospital Discharge instructions Patient Education 10/16/2022 [...] include: ?8 oz (237 mL) of milk, jxrvsvu-zukajkynmicy-uopel milk, and calcium-fortifiedfruit juice. Calcium-fortified means that [...] ?Spinach (cooked), rhubarb, beets, sweet potatoes, and Ivorian chard. ?Peanuts. ?Potato chips, northern irish fries, and baked potatoes with skin on. ?Nuts and nut products. ?Chocolate. If you regularly take a diuretic medicine, make sure to eat at least 1 or 2 servings of fruits or vegetables that are high in potassium each day. These include: ?Avocado. ?Banana. ?Mccormick, prune, carrot, or tomato juice. ?Baked potato. [...] magnesium, fish oil, or vitamin B6. Take ffwc-lxg-erdokou and prescription medicines only as told by [...] Casseroles. Pizza. Lasagna. Frozen meals. Potato chips. Estonian fries. The items listed above may not [...] provider. Document Revised: 02/19/2022 Document Reviewed: 02/19/2022 [employer] Patient Education 2022 [place]. Follow Up Care 02/19/2022 10:35:10 With:CHRIS RIVERA, Shun Mirza, URL Address: [address] [place], [place] [address]AR [address] [place] [address]- When: Unknown [facility] 08-16-2022 Note PROCEDURE: XR FOOT [...] authenticated by: LAURY ZEPEDA Date: 2022-08-16 18:55 [facility] 07-19-2022 Note PROCEDURE: XR FOOT R T [...] authenticated by: LAURY ZEPEDA Date: 2022-07-19 12:30 [facility] 07-06-2022 Note PROCEDURE: XR FOOT R T [...] authenticated by: LAURY ZEPEDA Date: 2022-07-06 15:41 [facility] 06-07-2022 Note PROCEDURE: XR ANKLE [...] authenticated by: BANDAR SAENZ Date: 2022-06-07 14:32 [facility] 06-07-2022 Note PROCEDURE: XR ANKLE [...] authenticated by: BANDAR SAENZ Date: 2022-06-07 14:32 [facility] 01-30-2022 Hospital Discharge instructions Patient Education 01/30/2022 [...] include: ?Spinach. ?Rhubarb. ?Beets. ?Potato chips and northern irish fries. ?Nuts. If you regularly take a diuretic medicine, make sure to eat at least 1 2 fruits or vegetables high in potassium each day. These include: ?Avocado. ?Banana. ?Mccormick, prune, carrot, or tomato juice. ?Baked potato. [...] Casseroles. Pizza. Lasagna. Frozen meals. Potato chips. Estonian fries. Summary You can reduce your risk [...] 10/05/2011 Document Revised: 09/30/2019 Document Reviewed: 05/21/2017 [employer] Patient Education 2020 [place]. Follow Up Care 01/24/2022 12:02:31 With:CHRIS RIVERA, Shun Mirza, URL Address: [facility] [employer] [address] [address]- When: Unknown [facility] 09-27-2021 Note Send Summary: Discharge Summary Providers: Provider RoleProvider Name Sal Perez Nicholas PrimaryHoy, Douglas M Note Recipients: Audrey Armstrong MD - [id number] [] Discharge: Summary: Admission Date: .26-Sep-2021 06:01:00 [...] floor. Patient was initially started on dilaudid LINE AND FRAME POLER x24 hours and then transitioned to an [...] HAVE ANTONIO REMOVED IN 3 WKS. AT [place] [place] [address] [address] [facility] 5TH FLOOR ON 10/18/2021 AT 0930 WITH KENTON SANTIAGO. REHAB FACILITIES OR HOME CARE MAY REMOVE ANTONIO OR SUTURES. Wound Site: BACK (Lumbar Spine) Wound Type: surgical incision Change Dressing: daily Cleanse With: soap and water Cover With: abdominal dressing Tape With: paper tape Instructions: no lotions, creams, or tub soaks Other Instructions: PLEASE HAVE ANTONIO REMOVED IN 3 WKS. AT [facility] [address] [facility] 5TH FLOOR ON 10/18/2021 AT 0930 WITH [...] to Schedule in: 6 weeks, PLEASE CALL [phone] TO SCHEDULE YOUR APPOINTMENT FOR 5-6 WEEKS FOLLOWING YOUR SURGERY. Location: [facility] [id number] [place] [address] 5TH FLOOR OR [address] [facility]/ [facility] [address], Phone Number: Office: (September,./[place]) - [phone] Discharge Medications: Home Medication NIFEdipine 30 mg [...] tab(s) orally every (more content not included)... [facility] 09-27-2021 Note Rehab: Info: Mode of Treatmentoccupational therapy; co-evaluation with PT for pt safety and to optimize pt's therapeutic potential Time IN10:00 Time OUT10:27 Total Treatment [id number] Patient in ... at end of sessionchair; alarm on Communicated with ... at end of sessionbedside nurse Patient Effortexcellent Symptoms Noted During/After Treatmentnone Patient Profile Reviewedyes Onset of Illness/Injury or Date of [id number] Reason for ReferralXLIF L3/4, 4/5;2. Navigated percutaneous [...] WFL Mobility/Tone: Bed Mobility Assessment/Interventionssupine to sit Vceliv-aq-Kbx Zenda (Bed Mobility)standby assist; verbal cues Assistive Device (Bed Mobility)bed rails Comment, Bed MobilityVia log rolling technique Transfer Assessment/Interventionssit to stand transfer; stand to sit transfer Sit-Stand Zenda (Transfers)standby assist; verbal cues Sit-Stand Assistive Device (Transfers)no AD Stand-Sit Zenda (Transfers)standby assist; verbal cues Stand-Sit Assistive Device (Transfers)no AD Safety Issues Impacting Function (Mobility)insight into deficits/self awareness Impairments Impacting Function (Mobility)balance; pain ActivityPt completed functional household distance with SBA for safety (pt declined use of device) ADL: BADL Assessment/Interventionlower body dressing; grooming; toileting Zenda Level (Lower Body Dressing)pants/bottoms; moderate assist (50% patient effort) Position (Lower Body Dressing)edge-of-bed sitting Zenda Level (Grooming)supervision Position (Grooming)standing Comment (Grooming)Standing oral care at sink Zenda Level (Toileting)supervision Position (Toileting)standing Motor: Sitting, Static (Balance)good balance Sitting, Dynamic (Balance)good balance Was-ws-Ysorx (Balance)fair balance Standing, Static (Balance)fair balance Standing, [...] Total Score17 Short Term Goals: Transfer: Established [id number] Transfer: Transfer Type Hgqgdgy-hf-ywayh/qvsck-wp-lee; (more content not included)... [facility] 09-26-2021 Note Post Operative Note: PreOp Diagnosis: Lumbar stenosis, spondylolisthesis L3-5 Post-Procedure Diagnosis: Lumbar stenosis, spondylolisthesis L3-5 Procedure: ALIF via extreme lateral approach L3/4, L4/5 with cage x 2 PSF with instrumentation L3-5 Surgeon: Dr. Richardson Resident/Fellow/Other Scientific Publications Editor: Renny Steinberg Estimated Blood Loss (mL): 150 [...] Last Updated: 04-Oct-2021 15:17 by Sal Richardson) [facility] 09-26-2021 History of Present illness Narrative Jay is a pleasant 62-year-old repkj-rfxw-jhdtrjzu male who presents today with his for [...] not corrected for spelling or grammatical errors. WL-Aqwbrmpfvuyh-Odcvrxb 5FL DO Work Phone: 09-26-2021 Note History [...] the note. I personally evaluated the patient [id number] Electronic Signatures: Sal Richardson) (Signed 29-Sep-2021 11:39) Authored: Note Completion Co-Signer: History of Present Illness, Allergies, Home Medication Review, Impression/Procedure, ERAS, Physical Exam, Consent, Note Completion Timothy Steinberg (Resident)) (Signed 26-Sep-2021 05:59) Authored: History of Present Illness, Allergies, Home Medication Review, Impression/Procedure, ERAS, Physical Exam, Consent, Note Completion Last Updated: 29-Sep-2021 11:39 by Sal Richardson) [facility] 08-25-2021 Reason for referral (narrative) Reason for Referral: XLIF L3/4, 4/5;2. 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 Ricahrdson Resident/Fellow/Other Scientific Publications Editor: Skip/ Katalina Procedure: anterior cervical discectomy/ decompression, [...] Last Updated: 27-Jun-2021 14:14 by Sal Richardson) [facility] 06-21-2021 Note History & Physical R eviewed: [...] the note. I personally evaluated the patient [id number] Electronic Signatures: Sal Richardson) (Signed 27-Jun-2021 13:45) Authored: Note Completion Co-Signer: History & Physical Reviewed, ERAS, Consent, Note Completion Cheikh August (Resident)) (Signed 21-Jun-2021 06:23) Authored: History & Physical Reviewed, ERAS, Consent, Note Completion Last Updated: 27-Jun-2021 13:45 by Sal Richardson) [facility] 12-22-2020 History of Present illness Narrative Jay [...] not corrected for spelling or grammatical errors. GW-Stqsnbjexija-Cmfvbr 210 Work Phone: 10-31-2020 History of Present illness Narrative 60 yr old male with back pain. 10/31 [facility] Work Phone: 10-31-2020 History of Present illness [...] foot surgeries and total knee replacement. [facility] Work Phone: Evaluation + Plan note Future Appointments Appointment Date:01/30/2022 09:15:00 AM Scheduled Provider:Shun MACHADO [facility] App[facility] Type:URO Office Visit Appointment Date:07/31/2022 02:00:00 PM Scheduled Provider:Arely LOGAN MD Location:[facility] Appointment Type:[address] Evaluation + Plan note Future Appointments Appointment Date:07/31/2022 02:00:00 PM Scheduled Provider:Arely LOGAN MD Location:[facility] Appointment Type:[place] [address] [facility] Evaluation + Plan note Future Appointments Appointment Date:10/16/2022 02:15:00 PM Scheduled Provider:Shun MACHADO MD Location:[facility]addy Appointment Type:URO Office Visit Future Scheduled TestsXR Abdomen 1 View 02/19/22 [facility] Evaluation + Plan note Future Appointments Appointment Date:02/22/2023 10:45:00 AM Scheduled Provider:Shun MACHADO MD Location:[facility] Appointment Type:URO Office Visit Future Scheduled TestsXR Abdomen 1 View 02/19/22 [facility] Evaluation + Plan note Future Appointments Appointment Date:04/13/2024 09:15:00 AM Scheduled Provider:Shun MACHADO MD Location:[facility]placed by [facility] Appointment Type:URO Office Visit [facility] Evaluation note Neurological: alert and oriented m2Kvpjpjpqvjuqfby: Spine Exam:Dressings CDINo bruising, swelling, or erythemaL1: [...] appearing, no acute distress resting in bed [facility] Evaluation note No assessment information availa [facility] Work Phone: History of Present illness Narrative [...] not corrected for spelling or grammatical errors. SC-Zwzzctdvosxa-Njijgxe 5FL DO Work Phone: Hospital course Narrative [...] HAVE ANTONIO REMOVED IN 3 WKS. AT [facility] [address] [facility] [facility] FLO[facility] ON 10/18/2021 AT 0930 WITH K[facility]ON SANTIAGO.REHAB FACILITIES OR HOME CARE MAY REMOVE ANTONIO OR SUTURES.Wound Care 2:Wound Site: BACK (Lumbar Spine)Wound Type: surgical incisionChange Dressing: dailyCleanse With: soap and waterCover With: abdominal dressingTape With: paper tapeInstructions: no lotions, creams, or tub soaksOther Instructions: PLEASE HAVE ANTONIO REMOVED IN 3 WKS. AT [facility] [address] [facility] 5TH FLOOR ON 10/18/2021 AT 0930 [...] to Schedule in: 6 weeks, PLEASE CALL [phone] TO SCHEDULE YOUR APPOINTMENT FOR 5-6 WEEKS FOLLOWING YOUR SURGERY.Location: [facility] [address] 5TH FLOOR [place] [address] [facility] [address], [phone] Number: Office: (September,./[place]) - [phone]: Please Call Emmie Gallagher RN at [phone] For Any Post-Op Questions [facility] Hospital Discharge instructions No data available for this section General Surgery Antoine Progress note No data available for this section General Surgery Antoine Summary Purpose Family History No Family History [...] weeks. He lives far away, in the [facility]. If he gets better with the injections, perhaps we can watch fguk-rjz-vuo and this is obviously what we are [...] weeks. He lives far away, in the [facility]. If he gets better with the injections, perhaps we can watch sfdu-jho-rdn and this is obviously what we are [...] spine from 04/12/2021 is available from the [facility] on a CD. This shows [...] section and content) DATE CREATED AUTHOR 01/14/2021 Perico Starr [facility] DATE CREATED AUTHOR AUTHOR'S ORGANIZ ATION 03/11/2021 [facility] DATE CREATED AUTHOR AUTHOR'S ORGANIZ ATION 08/06/2021 [facility] DATE CREATED AUTHOR AUTHOR'S ORGANIZ ATION 05/03/2022 [employer] DATE CREATED AUTHOR AUTHOR'S ORGANIZ ATION 05/05/2022 [facility] DATE CREATED AUTHOR AUTHOR'S ORGANIZ ATION 11/30/2022 [facility] DATE CREATED AUTHOR AUTHOR'S ORGANIZ ATION 03/14/2023 [facility] DATE CREATED AUTHOR AUTHOR'S ORGANIZ ATION 04/10/2023 [facility] DATE CREATED AUTHOR AUTHOR'S ORGANIZ ATION 08/28/2023 [facility] EPIC DATE CREATED AUTHOR AUTHOR'S ORGANIZ ATION 01/10/2024 [facility] <item> Privacy Markings (unrecogniz ed [...] Audrey Armstrong MD Primary Care Provider Active Hudson De Leon MD Attending Provider Active Team Status: Inactive Member Role Status Dates Audrey Armstrong MD Primary Care Provider Active Start: July 18, 2023 End: July 18, 2023 TAD Nielsen Attending Provider Active Start: July 18, 2023 End: July 18, 2023 Team Status: Inactive Member Role Status Dates Audrey Armstrong MD Primary Care Provider Active Start: [...] BE BASED ON THE PRIMARY CLINICAL RECORDS. [employer] provides no warranty or guarantee of the accuracy or completeness of information in this document.
== END 2024-02-04 10:45 | disposition home or self-care (01) ==
LOC: EC 10:45
PROVIDERS: PCP Family Medicine; Visit Provider Podiatrist Foot & Ankle Surgery
DX: M79.671 Pain in right foot (principal); Z98.890 Other specified postprocedural states
CPT/HCPCS: 73630

== ENCOUNTER 2024-02-25 09:46 | Outpatient (OUT) | payer MEDICARE, SELFPAY ==
--- NOTE | 2024-02-25 | XR_ITS ---
The [address] [address] Patient Name: RG SIMEON MRN: [id number] date: 1960 Sex: M Assigned Patient Location: Current Patient Location: Accession/Order Number: [id number] Exam Date: 02/25/2024 09:50 Report Date: 02/26/2024 06:39 At the request of: JENI SAEED Procedure: XR foot RT min 3V PROCEDURE: XR foot RT min 3V HISTORY: RIGHT FOOT PAIN COMPARISON: XR foot right 02/04/2024 FINDINGS: BONES:Prior posterior calcaneal osteotomy and fusion. Fusion of the talocalcaneal joint and medial column of the midfoot. No appreciable hardware fracture or loosening. SOFT TISSUES:No visible soft tissue swelling. EFFUSION:None visible. OTHER: Negative. XR/XR foot RT min 3V IMPRESSION: 1. Stable surgical changes without evidence of hardware failure or change in alignment. Electronically authenticated by: LAURY ZEPEDA Date: 02/26/2024 06:39
== END 2024-02-25 09:47 | disposition home or self-care (01) ==
LOC: EC 09:47
PROVIDERS: PCP Family Medicine; Visit Provider Podiatrist Foot & Ankle Surgery
DX: M19.071 Primary osteoarthritis, right ankle and foot (principal); M24.674 Ankylosis, right foot
CPT/HCPCS: 73630

== ENCOUNTER 2024-03-25 09:11 | Outpatient (OUT) | payer MEDICARE, SELFPAY ==
--- NOTE | 2024-03-25 | XR_ITS ---
[address] [address] Patient Name: RG SIMEON MRN: [id number] date: 1960 Sex: M Assigned Patient Location: Current Patient Location: Accession/Order Number: [id number] Exam Date: 03/25/2024 09:15 Report Date: 03/25/2024 10:53 At the request of: JENI SAEED Procedure: XR foot RT min 3V PROCEDURE: XR foot RT min 3V COMPARISON: 02/25/2024, 02/04/2024 HISTORY: RIGHT FOOT PAIN FINDINGS: BONES:Lucency in the distal tibia from bone graft harvesting. Posterior calcaneal osteotomy transfixed with screws. Posterior subtalar fusion. Strut along the medial foot extending from the base of the first metatarsal into the talus. Dorsal plate and screws as well as a surgical staple. No mechanical failure. Incomplete bony bridging across the posterior calcaneal osteotomy site. Degenerative changes. SOFT TISSUES:Negative. No visible soft tissue swelling. EFFUSION:None visible. OTHER: Negative. XR/XR foot RT min 3V IMPRESSION: Stable postsurgical changes with partial bony bridging of the posterior calcaneal osteotomy Electronically authenticated by: BANDAR SAENZ Date: 03/25/2024 10:53
== END 2024-03-25 09:12 | disposition home or self-care (01) ==
LOC: EC 09:11
PROVIDERS: PCP Family Medicine; Visit Provider Podiatrist Foot & Ankle Surgery
DX: M79.671 Pain in right foot (principal); Z98.890 Other specified postprocedural states
CPT/HCPCS: 73630

== ENCOUNTER 2024-03-31 07:57 | Outpatient (OUT) | payer MEDICARE, SELFPAY ==
--- NOTE | 2024-03-31 08:01 | CT_ITS ---
The [address] [address] Patient Name: RG SIMEON MRN: [id number] date: 1960 Sex: M Assigned Patient Location: CT Current Patient Location: Accession/Order Number: [id number] Exam Date: 03/31/2024 08:05 Report Date: 04/01/2024 04:37 At the request of: JENI SAEED Procedure: CT foot RT wo con EXAMINATION: CT foot RT wo con HISTORY: Nonunion Tailor Navicular Joint COMPARISON: XR foot right 04-16, CT foot right 11/26/2023 TECHNIQUE: Multi-planar CT images were created without and/or with IV contrast according to examination type. Dose reduction techniques were achieved by using automated exposure control and/or adjustment of mA and/or kV according to patient size and/or use of iterative reconstruction technique. FINDINGS: BONES: Prior calcaneal osteotomy and hardware fusion. Mechanical fusion of the medial midfoot via dorsal plate and screws, bone staple, and rods extending from first metatarsal into talus. Increased lucency surrounding the proximal end of the antonio within the talus. SOFT TISSUES: Mild soft tissue swelling and edema surrounding the foot and ankle. EFFUSION: None visible. OTHER: Negative. CT/CT foot RT wo con IMPRESSION: 1. Increased area of lucency within the talus surrounding the proximal end of the antonio extending from the first metatarsal to the talus suggesting possible movement. 2. Stable hardware compared to recent foot radiograph; no fracture of the hardware. There is been revision of hardware since the prior CT study. 3. No appreciable hardware failure or change in alignment. No bone fracture. Electronically authenticated by: LAURY ZEPEDA Date: 04/01/2024 04:37
--- OUTSIDE RECORDS SUMMARY | 2024-03-31 08:15 | XMS_ITS | CCD ---
Author Organization [facility] Care Team Providers Care Recruiting Operations Consultant Name Role Phone None, No PCP Unavailable Unavailable Unavailable Unavailable Arturo Audrey M Unavailable Audrey Armstrong Unavailable Sal Richardson Unavailable Kenton Lawson Randy Unavailable Unavailabl Audrey Raines Primary Care Physician [phone] MD Audrey Armstrong Primary Care Provider [phone] MD Shun Machado Attending Provider DEBRA, Dr. [...] e Shevchik, Mr. Suarez Attending Unavailabl e AnthonyyAudrey Arely Primary Care Unavailable Hoy, Audrey Arely [...] able MD Audrey Armstrong Primary Care Provider [phone] MD Dmitriy De Leon Attending Provider MD Audrey Armstrong Primary Care Provider [phone] MD Dmitriy De Leon Attending Provider [phone] JNEI SAEED Admitting Unavailable ZIEBER, DR LAURY Costello [...] Unavailable COOK, DR SHUN Mirza Consulting Unavailable HOLLINS, DR BANDAR Sheppard Consulting Unavailable COOK, DR SHUN Mirza Consulting Unavailable COOK, DR SHUN Mirza Admitting Unavailable COOK, DR SHUN Mirza Attending Unavailable HOY ., DR VENTURA Primary Care Unavailable HOLLINS, DR BANDAR Sheppard Consulting Unavailable HOY ., [...] Unavailable MD Audrey Armstrong Primary Care Provider [phone] MD Hudson De Leon Attending Provider ANTWAN SORIANO Attending Unavailable AUDREY ARMSTRONG Primary Care Unavailable MD Audrey Armstrong Primary Care Provider [phone] TAD Manriquez Attending Provider STEFANIE KNIGHT Attending Unavailable HURST, NABILA Referring Unavailable KELBLEY, GENE Attending Unavailable HURST, NABILA Referring Unavailable KELBLEY, GENE Attending Unavailable HURST, NABILA Referring Unavailable KELBLEY, GENE Attending Unavailable HURST, NABILA Referring Unavailable BLACKSTON, STEFANIE T Attending Unavailable HURST, NABILA Referring Unavailable KELBLEY, GENE Attending Unavailable HURST, NABILA Referring Unavailable PB MAY Attending Unavailable HURST, NABILA Referring Unavailable ANTONIA, STEFANIE T Attending Unavailable HURST, NABILA Referring Unavailable MD Audrey Armstrong Primary Care Provider TAD Manriquez Attending Provider MD Audrey Armstrong Primary Care Provider [phone] TAD Manriquez Attending Provider Sabrina Manriquez Attending Unavailable Audrey Armstrong Primary Care Unavailable ObermSabrina camacho Admitting Unavailable ObSabrina almeida Admitting Unavailable ObSabrina almeida Attending Unavailable Audrey Armstrong Primary Care Unavailable ObermSabrina camacho Admitting Unavailable ObSabrina almeida Attending Unavailable Audrey Armstrong Primary Care Unavailable Shun MACHADO Attending Unavailable Shun MACHADO Attending Unavailable Allergies Allergy Classification Reported Allergen(s) Allergy Type Date of Onset Reaction(s) Facility (17 sources) Penicillins; Translations: [Penicillins] Allergy to drug (finding) 7 Rash [facility] Work Phone: (6 sources) Penicillin; Translations: [penicillin] Drug Allergy Eruption of skin (disorder) General Surgery [place] (2 sources) oxyCODONE Drug Allergy 1 [facility] (2 sources) Penicillins Drug allergy (disorder) 7 [facility] (1 source) Penicillins Drug allergy (disorder) 2 [facility]ository Medications Current Medications Medication Drug Class(es) [...] Status: Ordered ciprofloxacin 500 mg oral tablet (18 sources) Quinolone Antimicrobial Start: 02-15-2022 take 1 [...] iron-containing products irbesartan 300 mg oral tablet (12 sources) Angiotensin 2 Receptor Jennifer Start: 01-16-2022 take 300 mg by mouth once daily at lunch Irbesartan Active 300 MG PO Daily with lunch January 17, 2022 12:00am NIFEdipine 30 mg oral tablet (14 sources) Dihydropyridine Calcium Channel Jennifer Start: 01-19-2022 take 1 tablet by mouth once daily NIFEdipine 30 mg ER Tab 30 mg = 1 tab(s), Oral, Daily, Refills(s) 0 Start Date: 01/19/22 Status: Ordered Start: 01-17-2022 take 30 mg by mouth once daily in the morning Nifedipine Active 30 MG PO Every morning January 17, 2022 12:00am pantoprazole 40 mg delayed release oral tablet (14 sources) Proton Pump Inhibitor Start: 04-15-2019 take 40 mg by mouth once daily Pantoprazole Active 40 MG PO Daily January 17, 2022 12:00am potassium citrate 10 meq extended release oral tablet (2 sources) Start: 10-16-2022 End: 10-11-2023 potassium CITRATE 10 mEq ER Tab 20 mEq, 2 tab(s), Oral, BID for 30 day(s), 120 tab(s), Refill(s) 11, [facility], 170, cm, 10/16/22 14:31:00 EDT, Height/Length [...] / HYDROcodone bitartrate 5 mg oral tablet (9 sources) Opioid Agonist Start: 01-19-2022 End: 02-15-2022 take 1 tablet by mouth every four to six hours Hydrocodone-Acetami nophen Discontinued 1 TAB PO EVERY 4-6 HOURS 10 3 January 19, 2022 February 15, 2022 7:49am chlorhexidine gluconate 40 mg/ml medicated liquid soap (17 sources) Start: 09-19-2021 Hibiclens 4 % External Liquid USE DIRECTED. Quantity: 1 Refills: 0 Ordered: 19-Sep-2021 Maik MARTINEZ-Jacquie GUSMAN Start : 19-Sep-2021 Active Start: 06-02-2021 Hibiclens 4 % External Liquid USE DIRECTED as preop shower Quantity: 1 Refills: 0 Ordered: 02-Jun-2021 Margo MARTINEZ-Azucena GUSMAN Start : 02-Jun-2021 Active diclofenac sodium 0.01 [...] Active hydroxychloroquine sulfate 200 mg oral tablet (14 sources) Antimalarial, Antirheumatic Agent Start: 04-15-2019 End: 02-15-2022 take 200 mg by mouth twice daily Hydroxychloroquine Discontinued 200 MG PO Twice daily January 17, 2022 12:00am February 15, 2022 7:49am ketorolac tromethamine 10 mg oral tablet (9 sources) Nonsteroidal Anti-inflammatory Drug, Cyclooxygenase Inhibitor Start: [...] Active oxybutynin chloride 5 mg oral tablet (9 sources) Cholinergic Muscarinic Antagonist Start: 01-19-2022 End: [...] activity., # 30 tab(s), Refills(s) 3, Pharmacy: [facility], 170, cm, 10/16/22 14:31:00 EDT, Height/Length Dosing, 104.3, kg, 10/16/22 14:31:00 EDT, Weight Dosing Start Date: 10/16/22 Status: Ordered tamsulosin hydrochloride 0.4 mg oral capsule (9 sources) alpha-Adrenergic Jennifer Start: 01-17-2022 End: 02-15-2022 [...] malignant neoplasm of prostate] Onset: 10-16-2022 Episodic Spondylosis; intervertebral disc disorders; other back problems [...] 09-27-2021 Episodic Other aftercare (2 sources) Other correction (current) drug therapy; Translations: [Other vermin exterminator (current) drug therapy] Onset: 06-02-2021 Episodic Other [...] Test Name Value Interpretation Reference Range Facility Provider Letteron 03-27-2024 Provider Letter Provider Letter March 27, 2024 [address] [place] [id number] : 1960 Dear Jay , We have been trying to reach you with no success. It is important that you return our call regarding need to repeat gallbladder ultrasound upon receiving this letter. Thank you for your prompt attention to this matter. Sincerely, Dr. Arely oLgan MD General Surgery [facility] Reminderson 03-27-2024 Reminders Reminders From: Elvira Lee LPN To: GSN - Clinical; Sent: 04/10/2023 09:13:08 EDT Show up: 03/18/2024 07:00:00 EDT Subject: GB US recall Due Date/Time: 04/02/2024 07:00:00 EDT Reminder/Recall Patient due to repeat GB US 04/02/2024 to monitor stability of GB polyp. Left voice mail message to call back. Left voice mail message to call back. Mailed letter to home. Normal [facility] Alanine aminotransferase [En zymatic activity/volume] in Serum or PlasmaOrdered By: Sabrina Manriquez on 03-04-2024 ALT [Catalytic activity/Vol] 27 U/L Normal 7-52 [facility] Comment on above: Performed By: #### C 4, C3, CH50 #### [facility] , #### CBC, CMP, ESR, ADDONUAPLUS, CRP #### [facility] [address] [place] [address] [place] Albumin [Mass/volume] in Ser um or Plasma by Bromocresol green (BCG) dye binding methoOrdered By: Sabrina Manriquez on 03-04-2024 Albumin BCG dye [Mass/Vol] 4.4 g/dL 3.5-5.7 [facility] Alkaline phosphatase [Enzyma tic activity/volume] in Serum or PlasmaOrdered By: Sabrina Manriquez on 03-04-2024 ALP [Catalytic activity/Vol] 92 U/L Normal 34-104 [facility] Comment on above: Performed By: #### C 4, C3, CH50 #### [facility] , #### CBC, CMP, ESR, ADDONUAPLUS, CRP #### [facility] [address] [place] [id number] [place] Aspartate aminotransferase [ Enzymatic activity/volume] in Serum or PlasmaOrdered By: Sabrina Manriquez on 03-04-2024 AST [Catalytic activity/Vol] 21 U/L Normal 13-39 [facility] Comment on above: Performed By: #### C 4, C3, CH50 #### [facility] , #### CBC, CMP, ESR, ADDONUAPLUS, CRP #### [address] Automated basophil %Ordered By: Sabrina Manriquez on 03-04-2024 Basophils/100 WBC (Bld) 0.6 % Normal . [facility] Comment on above: Performed By: #### C 4, C3, CH50 #### [facility] , #### CBC, CMP, ESR, ADDONUAPLUS, CRP #### [address] Automated basophil countOrde red By: Sabrina Manriquez on 03-04-2024 Basophils (Bld) [#/Vol] 0.0 10*3/uL Normal 0.0-0.2 [facility] Comment on above: Performed By: #### C 4, C3, CH50 #### [facility] , #### CBC, CMP, ESR, ADDONUAPLUS, CRP #### [address] Automated blood monocyte cou ntOrdered By: Sabrina Manriquez on 03-04-2024 Monocytes (Bld) [#/Vol] 0.3 10*3/uL Normal 0.0-0.8 [facility] Comment on above: Performed By: #### C 4, C3, CH50 #### [facility] , #### CBC, CMP, ESR, ADDONUAPLUS, CRP #### [address] Automated eosinophil %Ordere d By: Sabrina Manriquez on 03-04-2024 Eosinophils/100 WBC (Bld) 1.3 % Normal . [facility] Comment on above: Performed By: #### C 4, C3, CH50 #### [facility] , #### CBC, CMP, ESR, ADDONUAPLUS, CRP #### [address] Automated eosinophil countOr dered By: Sabrina Manriquez on 03-04-2024 Eosinophils (Bld) [#/Vol] 0.1 10*3/uL Normal 0.0-0.45 [facility] Comment on above: Performed By: #### C 4, C3, CH50 #### [facility] , #### CBC, CMP, ESR, ADDONUAPLUS, CRP #### [facility] [address] [place] [address] Automated monocyte %Ordered By: Sabrina Manriquez on 03-04-2024 Monocytes/100 WBC (Bld) 6.6 % Normal . [facility] Comment on above: Performed By: #### C 4, C3, CH50 #### [facility] , #### CBC, CMP, ESR, ADDONUAPLUS, CRP #### [address] Automated neutrophil %Ordere d By: Sabrina Manriquez on 03-04-2024 Neutrophils/100 WBC (Bld) 70.7 % Normal . [facility] Comment on above: Performed By: #### C 4, C3, CH50 #### [facility] , #### CBC, CMP, ESR, ADDONUAPLUS, CRP #### [address] Bacteria [Presence] in Urine by AutomatedOrdered By: Sabrina Manriquez on 03-04-2024 Bacteria Auto Ql (U) None seen [HPF] None Seen [facility] Bilirubin Test strip Ql (U)O rdered By: Sabrina Manriquez on 03-04-2024 Bilirubin Ql (U) Negative Negative [facility] Bilirubin.total [Mass/volume ] in Serum or PlasmaOrdered By: Sabrina Manriquez on 03-04-2024 Bilirubin [Mass/Vol] 0.6 mg/dL Normal 0.3-1.0 [facility] Comment on above: Performed By: #### C 4, C3, CH50 #### [facility] , #### CBC, CMP, ESR, ADDONUAPLUS, CRP #### [facility] [address] [place] [address] [place] C reactive protein [Mass/vol ume] in Serum or PlasmaOrdered By: Sabrina Manriquez on 03-04-2024 CRP [Mass/Vol] < 0.5 mg/dL 0.0-0.5 [facility] C-Reactive Proteinon 024 CRP [Mass/Vol] mg/L Normal 0.0-0.5 [facility] Comment on above: Result Comment: PERF ORMED BY: [place] [address] PATHOLOGIST GAS JOCKEY KRISTIE BAKER M.D. Performed By: #### C 4, C3, CH50 #### [facility] , #### CBC, CMP, ESR, ADDONUAPLUS, CRP #### [place] [address] [place] Calcium [Mass/volume] in Ser um or PlasmaOrdered By: Sabrina Manriquez on 03-04-2024 Calcium [Mass/Vol] 9.2 mg/dL Normal 8.6-10.3 [facility] Comment on above: Performed By: #### C 4, C3, CH50 #### [facility] , #### CBC, CMP, ESR, ADDONUAPLUS, CRP #### [facility] [address] [place] [address] [place] Carbon dioxide, total [Moles /volume] in Serum or PlasmaOrdered By: Sabrina Manriquez on 03-04-2024 CO2 [Moles/Vol] 29.4 mmol/L Normal 21.0-31.0 [facility] Comment on above: Performed By: #### C 4, C3, CH50 #### [facility] , #### CBC, CMP, ESR, ADDONUAPLUS, CRP #### [place] [address] [place] Chloride [Moles/volume] in S lenny or PlasmaOrdered By: Sabrina Manriquez on 03-04-2024 Chloride [Moles/Vol] 104 mmol/L Normal 98-107 [facility] Comment on above: Performed By: #### C 4, C3, CH50 #### [facility] , #### CBC, CMP, ESR, ADDONUAPLUS, CRP #### [address] Color of Urine by AutoOrdere d By: Sabrina Manriquez on 03-04-2024 Color (U) Light-yellow Normal Yellow [facility] Comment on above: Order Comment: Name Collection Type:: Clean-Voided Midstream Performed By: #### C 4, C3, CH50 #### [facility] , #### CBC, CMP, ESR, ADDONUAPLUS, CRP #### [address] Complement C3on 03-04-2024 Complement C3 138 mg/dL Normal 82-167 [facility] Comment on above: Result Comment: Perf ormed at: - [facility] [address] [id number] Senior Firewall Engineer: Derek Toscano PhD, Phone: [phone] Performed By: #### C 4, C3, CH50 #### [facility] , #### CBC, CMP, ESR, ADDONUAPLUS, CRP #### [address] Complement C4on 03-04-2024 Complement C4 23 mg/dL Normal 12-38 [facility] Comment on above: Result Comment: PERF ORMED BY: [place] [address] PATHOLOGIST GAS JOCKEY KRISTIE BAKER M.D. Performed By: #### C 4, C3, CH50 #### [facility] , #### CBC, CMP, ESR, ADDONUAPLUS, CRP #### [address] Complement Total (CH50)on Complement Total (CH50) 48 Normal >41 [facility] Comment on above: Result [...] of range values. Performed at: - [facility] [address] [id number] Senior Firewall Engineer: Derek Toscano PhD, Phone: [phone] PERFORMED BY: [place] [address] PATHOLOGIST GAS JOCKEY KRISTIE BAKER M.D. Performed By: #### C 4, C3, CH50 #### [facility] , #### CBC, CMP, ESR, ADDONUAPLUS, CRP #### [address] Complete Blood Count Auto Di ffon 03-04-2024 Mean Corpuscular HGB Conc 34.2 g/dL Normal 32.5-35.6 [facility] Comment on above: Performed By: #### C 4, C3, CH50 #### [facility] , #### CBC, CMP, ESR, ADDONUAPLUS, CRP #### [address] NRBC% 0.1 /100{WBC} Normal 0-0.5 [facility] Comment on above: Performed By: #### C 4, C3, CH50 #### [facility] , #### CBC, CMP, ESR, ADDONUAPLUS, CRP #### [address] Comprehensive Metabolic Pane tanika 03-04-2024 Albumin [Mass/Vol] 4.4 g/dL Normal 3.5-5.7 [facility] Comment on above: Performed By: #### C 4, C3, CH50 #### [facility] , #### CBC, CMP, ESR, ADDONUAPLUS, CRP #### [place] [address] [place] GFR/1.73 sq M.predicted MDRD (S/P/Bld) [Vol rate/Area] mL/min/{1.73_m2} Normal [facility] Comment on above: Performed By: #### C 4, C3, CH50 #### [facility] , #### CBC, CMP, ESR, ADDONUAPLUS, CRP #### [address] Creatinine [Mass/volume] in Serum or PlasmaOrdered By: Sabrina Manriquez on 03-04-2024 Creatinine [Mass/Vol] 0.93 mg/dL Normal 0.70-1.30 [facility] Comment on above: Performed By: #### C 4, C3, CH50 #### [facility] , #### CBC, CMP, ESR, ADDONUAPLUS, CRP #### [address] Dipstick and Microscopicon 0 03-04-2024 Bacteria,Urine None Seen Normal None Seen [facility] Comment on above: Order Comment: Name Collection Type:: Clean-Voided Midstream Performed By: #### C 4, C3, CH50 #### [facility] , #### CBC, CMP, ESR, ADDONUAPLUS, CRP #### [place] [address] [place] Bilirubin,Urine Negative Normal Negative [facility] Comment on above: Order Comment: Name Collection Type:: Clean-Voided Midstream Performed By: #### C 4, C3, CH50 #### [facility] , #### CBC, CMP, ESR, ADDONUAPLUS, CRP #### [address] Glucose Ql (U) Normal Normal Normal [facility] Comment on above: Order Comment: Name Collection Type:: Clean-Voided Midstream Performed By: #### C 4, C3, CH50 #### [facility] , #### CBC, CMP, ESR, ADDONUAPLUS, CRP #### [address] Hyaline Casts,Urine None Normal 0-8 [facility] Comment on above: Order Comment: Name Collection Type:: Clean-Voided Midstream Performed By: #### C 4, C3, CH50 #### [facility] , #### CBC, CMP, ESR, ADDONUAPLUS, CRP #### [address] Mucus,Urine Rare Normal [facility] Comment on above: Order Comment: Name Collection Type:: Clean-Voided Midstream Result Comment: PERF ORMED BY: [place] [address] PATHOLOGIST GAS JOCKEY KRISTIE BAKER M.D. Performed By: #### C 4, C3, CH50 #### [facility] , #### CBC, CMP, ESR, ADDONUAPLUS, CRP #### [address] Nitrite,Urine Negative Normal Negative [facility] Comment on above: Order Comment: Name Collection Type:: Clean-Voided Midstream Performed By: #### C 4, C3, CH50 #### [facility] , #### CBC, CMP, ESR, ADDONUAPLUS, CRP #### [address] Occult Blood,Urine Negative Normal Negative [facility] Comment on above: Order Comment: Name Collection Type:: Clean-Voided Midstream Performed By: #### C 4, C3, CH50 #### [facility] , #### CBC, CMP, ESR, ADDONUAPLUS, CRP #### [address] Protein,Urine Trace High Negative [facility] Comment on above: Order Comment: Name Collection Type:: Clean-Voided Midstream Performed By: #### C 4, C3, CH50 #### [facility] , #### CBC, CMP, ESR, ADDONUAPLUS, CRP #### [address] RBC,Urine 1-2 Normal 0-4 [facility] Comment on above: Order Comment: Name Collection Type:: Clean-Voided Midstream Performed By: #### C 4, C3, CH50 #### [facility] , #### CBC, CMP, ESR, ADDONUAPLUS, CRP #### [address] Specificy [place],Urine 1.020 Normal 1.001-1.03 0 [facility] Comment on above: Order Comment: Name Collection Type:: Clean-Voided Midstream Performed By: #### C 4, C3, CH50 #### [facility] , #### CBC, CMP, ESR, ADDONUAPLUS, CRP #### [address] Urobilinogen,Urine Normal Normal Normal [facility] Comment on above: Order Comment: Name Collection Type:: Clean-Voided Midstream Performed By: #### C 4, C3, CH50 #### [facility] , #### CBC, CMP, ESR, ADDONUAPLUS, CRP #### [place] [address] [place] WBC,Urine 1-2 Normal 0-4 [facility] Comment on above: Order Comment: Name Collection Type:: Clean-Voided Midstream Performed By: #### C 4, C3, CH50 #### [facility] , #### CBC, CMP, ESR, ADDONUAPLUS, CRP #### [address] Epithelial cells.squamous [# /area] in Urine sediment by Automated countOrdered By: Sabrina Manriquez on 03-04-2024 Epithelial cells.squamous Auto (Urine sed) [#/Area] N/A [facility] Erythrocyte Sedimentation Ra natan 03-04-2024 ESR (Bld) [Velocity] 9 mm/h Normal 0-19 [facility] Comment on above: Result Comment: PERF ORMED BY: [place] [address] PATHOLOGIST GAS JOCKEY KRISTIE BAKER M.D. Performed By: #### C 4, C3, CH50 #### [facility] , #### CBC, CMP, ESR, ADDONUAPLUS, CRP #### [address] Erythrocyte distribution wid th [Ratio] by Automated countOrdered By: Sabrina Manriquez on 03-04-2024 Erythrocyte distribution width (RBC) [Ratio] 13.6 % Normal 12.0-14.8 [facility] Comment on above: Performed By: #### C 4, C3, CH50 #### [facility] , #### CBC, CMP, ESR, ADDONUAPLUS, CRP #### [address] Erythrocyte sedimentation ra te by Photometric methodOrdered By: Sabrina Manriquez on 03-04-2024 ESR Photometric method (Bld) [Velocity] 9 mm/hr 0-19 [facility] Erythrocytes [#/area] in Uri ne sediment by Automated countOrdered By: Sabrina Manriquez on 03-04-2024 RBC Auto (Urine sed) [#/Area] 1-2 [HPF] 0-4 [facility] Erythrocytes [#/volume] in B lood by Automated countOrdered By: Sabrina Manriquez on 03-04-2024 RBC (Bld) [#/Vol] 4.54 10*6/uL Normal 3.90-5.60 [facility] Comment on above: Performed By: #### C 4, C3, CH50 #### [facility] , #### CBC, CMP, ESR, ADDONUAPLUS, CRP #### [facility] [address] [place] [id number] [place] Glucose [Mass/volume] in Ser um or PlasmaOrdered By: Sabrina Manriquez on 03-04-2024 Glucose [Mass/Vol] 132 mg/dL High 70-100 [facility] Comment on above: ADA recommended refe rence rangeRandom Glucose Reference Range is dependent on time and content of last meal. Glucose of more than 200 mg/dL in a nonstressed, ambulatory subject supports the diagnosis of Diabetes Mellitus. Result Comment: [place] om Glucose Reference Range is dependent on time and content of last meal. Glucose of more than 200 mg/dL in a nonstressed, ambulatory subject supports the diagnosis of Diabetes Mellitus. ADA recommended reference range Performed By: #### C 4, C3, CH50 #### [facility] , #### CBC, CMP, ESR, ADDONUAPLUS, CRP #### [facility] [address] [place] [id number] [place] Glucose [Mass/volume] in Uri ne by Test stripOrdered By: Sabrina Manriquez on 03-04-2024 Glucose Test strip (U) [Mass/Vol] Normal mg/dL Normal [facility] Hematocrit [Volume Fraction] of Blood by Automated countOrdered By: Sabrina Manriquez on 03-04-2024 Hematocrit (Bld) [Volume fraction] 42.8 % Normal 38.8-50.0 [facility] Comment on above: Performed By: #### C 4, C3, CH50 #### [facility] , #### CBC, CMP, ESR, ADDONUAPLUS, CRP #### [facility] [address] [place] [id number] [facility] Hemoglobin Test strip Ql (U) Ordered By: Sabrina Manriquez on 03-04-2024 Hemoglobin Ql (U) Negative Negative [facility] Hemoglobin [Mass/volume] in BloodOrdered By: Sabrina Manriquez on 03-04-2024 Hemoglobin (Bld) [Mass/Vol] 14.6 g/dL Normal 13.0-17.0 [facility] Comment on above: Performed By: #### C 4, C3, CH50 #### [facility] , #### CBC, CMP, ESR, ADDONUAPLUS, CRP #### [facility] [address] [place] [address] [place] Hyaline casts [#/area] in Ur ine sediment by Automated countOrdered By: Sabrina Manriquez on 03-04-2024 Hyaline casts Auto (Urine sed) [#/Area] None [LPF] 0-8 [facility] Ketones [Presence] in Urine by Test stripOrdered By: aSbrina Manriquez on 03-04-2024 Ketones Ql (U) Negative Normal Negative [facility] Comment on above: Order Comment: Name Collection Type:: Clean-Voided Midstream Performed By: #### C 4, C3, CH50 #### [facility] , #### CBC, CMP, ESR, ADDONUAPLUS, CRP #### [facility] [address] [place] [address] [place] Leukocyte esterase [Presence ] in Urine by Test stripOrdered By: Sabrina Manriquez on 03-04-2024 Leukocyte esterase Test strip Ql (U) Negative Normal Negative [facility] Comment on above: Order Comment: Name Collection Type:: Clean-Voided Midstream Performed By: #### C 4, C3, CH50 #### [facility] , #### CBC, CMP, ESR, ADDONUAPLUS, CRP #### [facility] [address] [place] [address] [place] Leukocytes [#/area] in Urine sediment by Automated countOrdered By: Sabrina Manriquez on 03-04-2024 WBC Auto (Urine sed) [#/Area] 1-2 [HPF] 0-4 [facility] Leukocytes [#/volume] correc leah for nucleated erythrocytes in Blood by Automated counOrdered By: Sabrina Manriquez on 03-04-2024 WBC corrected for nucl RBC Auto (Bld) [#/Vol] 5.1 10*3/uL 4.1-10.5 [facility] Leukocytes [#/volume] in Blo od by Automated countOrdered By: Sabrina Manriquez on 03-04-2024 WBC (Bld) [#/Vol] 5.1 10*3/uL Normal 4.1-10.5 [facility] Comment on above: Performed By: #### C 4, C3, CH50 #### [facility] , #### CBC, CMP, ESR, ADDONUAPLUS, CRP #### [facility] [address] [place] [address] [place] Lymphocytes [#/volume] in Bl ood by Automated countOrdered By: Sabrina Manriquez on 03-04-2024 Lymphocytes (Bld) [#/Vol] 1.1 10*3/uL Normal 1.00-4.8 [facility] Comment on above: Performed By: #### C 4, C3, CH50 #### [facility] , #### CBC, CMP, ESR, ADDONUAPLUS, CRP #### [facility] [address] [place] [address] [place] Lymphocytes/100 leukocytes i n Blood by Automated countOrdered By: Sabrina Manriquez on 03-04-2024 Lymphocytes/100 WBC (Bld) 20.8 % Normal . [facility] Comment on above: Performed By: #### C 4, C3, CH50 #### [facility] , #### CBC, CMP, ESR, ADDONUAPLUS, CRP #### [facility] [address] [place] [address] [place] MCH [Entitic mass] by Automa leah countOrdered By: Sabrina Manriquez on 03-04-2024 MCH (RBC) [Entitic mass] 32.2 pg Normal 27.5-35.2 [facility] Comment on above: Performed By: #### C 4, C3, CH50 #### [facility] , #### CBC, CMP, ESR, ADDONUAPLUS, CRP #### [facility] [address] MCHC Auto (RBC) [Mass/Vol]Or dered By: Sabrina Manriquez on 03-04-2024 MCHC (RBC) [Mass/Vol] 34.2 g/dL 32.5-35.6 [facility] MCV [Entitic volume] by Auto mated countOrdered By: Sabrina Manriquez on 03-04-2024 MCV (RBC) [Entitic vol] 94.2 fL Normal 83.5-101 [facility] Comment on above: Performed By: #### C 4, C3, CH50 #### [facility] , #### CBC, CMP, ESR, ADDONUAPLUS, CRP #### [facility] [address] [place] [address] Mucus [Presence] in Urine by AutomatedOrdered By: Sabrina Manriquez on 03-04-2024 Mucus Auto Ql (U) Rare [LPF] [facility] Neutrophils [#/volume] in Bl ood by Automated countOrdered By: Sabrina Manriquez on 03-04-2024 Neutrophils (Bld) [#/Vol] 3.6 10*3/uL Normal 1.8-7.7 [facility] Comment on above: Performed By: #### C 4, C3, CH50 #### [facility] , #### CBC, CMP, ESR, ADDONUAPLUS, CRP #### [facility] [address] [place] [address] Nitrite Test strip Ql (U)Ord ered By: Sabrina Manriquez on 03-04-2024 Nitrite Ql (U) Negative Negative [facility] No Panel InformationOrdered By: Sabrina Manriquez on 03-04-2024 Estimated GFR (CKD-EPI) > 60.0 mL/Min [facility] Creatinine Clearance (Chem N/A [facility] Nucleated erythrocytes [Pres ence] in Blood by Automated countOrdered By: Sabrina Manriquez on 03-04-2024 Nucleated RBC Auto Ql (Bld) 0.1 /100{WBC} 0-0.5 [facility] Platelet mean volume [Entiti c volume] in Blood by Automated countOrdered By: Sabrina Manriquez on 03-04-2024 Platelet mean volume (Bld) [Entitic vol] 9.1 fL Normal 6.6-10.1 [facility] Comment on above: Performed By: #### C 4, C3, CH50 #### [facility] , #### CBC, CMP, ESR, ADDONUAPLUS, CRP #### [facility] [address] Platelets [#/volume] in Bloo d by Automated countOrdered By: Sabrina Manriquez on 03-04-2024 Platelets (Bld) [#/Vol] 235 10*3/uL Normal 150-450 [facility] Comment on above: Performed By: #### C 4, C3, CH50 #### [facility] , #### CBC, CMP, ESR, ADDONUAPLUS, CRP #### [facility] [address] [place] [address] Potassium [Moles/volume] in Serum or PlasmaOrdered By: Sabrina Manriquez on 03-04-2024 Potassium [Moles/Vol] 4.2 mmol/L Normal 3.5-5.1 [facility] Comment on above: Performed By: #### C 4, C3, CH50 #### [facility] , #### CBC, CMP, ESR, ADDONUAPLUS, CRP #### [facility] [address] [place] [address] Protein Test strip (U) [Mass /Vol]Ordered By: Sabrina Manriquez on 03-04-2024 Protein (U) [Mass/Vol] Trace mg/dL High Negative F [facility] Protein [Mass/volume] in Ser um or PlasmaOrdered By: Sabrina Manriquez on 03-04-2024 Protein [Mass/Vol] 7.1 g/dL Normal 6.4-8.9 [facility] Comment on above: Performed By: #### C 4, C3, CH50 #### [facility] , #### CBC, CMP, ESR, ADDONUAPLUS, CRP #### [facility] [address] [place] [address] Serum globulin measurement b y calculation (mass/volume)Ordered By: Sabrina Manriquez on 03-04-2024 Globulin (S) [Mass/Vol] 2.7 g/dL Normal [facility] Comment on above: Performed By: #### C 4, C3, CH50 #### [facility] , #### CBC, CMP, ESR, ADDONUAPLUS, CRP #### [facility] [address] [place] [address] Serum or plasma albumin/glob ulin mass ratioOrdered By: Sabrina Manriquez on 03-04-2024 Albumin/Globulin [Mass ratio] 1.6 {ratio} Normal [facility] Comment on above: Performed By: #### C 4, C3, CH50 #### [facility] , #### CBC, CMP, ESR, ADDONUAPLUS, CRP #### [facility] [address] [place] [address] Serum or plasma anion gap de terminationOrdered By: Sabrina Manriquez on 03-04-2024 Anion gap [Moles/Vol] 10.8 mmol/L Normal 6.0-15.0 [facility] Comment on above: Performed By: #### C 4, C3, CH50 #### [facility] , #### CBC, CMP, ESR, ADDONUAPLUS, CRP #### [facility] [address] [place] [address] Sodium [Moles/volume] in Ser um or PlasmaOrdered By: Sbarina Manriquez on 03-04-2024 Sodium [Moles/Vol] 140 mmol/L Normal 136-145 [facility] Comment on above: Performed By: #### C 4, C3, CH50 #### [facility] , #### CBC, CMP, ESR, ADDONUAPLUS, CRP #### [address] Specific gravity Test strip (U) [Rel density]Ordered By: Sabrina Manriquez on 03-04-2024 Specific gravity (U) [Rel density] 1.020 1.001-1.03 0 [facility] Urea nitrogen [Mass/volume] in Serum or PlasmaOrdered By: Sabrina Manriquez on 03-04-2024 Urea nitrogen [Mass/Vol] 18 mg/dL Normal 7-25 [facility] Comment on above: Performed By: #### C 4, C3, CH50 #### [facility] , #### CBC, CMP, ESR, ADDONUAPLUS, CRP #### [address] Urine appearanceOrdered By: Sabrina Manriquez on 03-04-2024 Appearance (U) Clear Normal Clear [facility] Comment on above: Order Comment: Name Collection Type:: Clean-Voided Midstream Performed By: #### C 4, C3, CH50 #### [facility] , #### CBC, CMP, ESR, ADDONUAPLUS, CRP #### [address] Urobilinogen Test strip (U) [Mass/Vol]Ordered By: Sabrina Manriquez on 03-04-2024 Urobilinogen (U) [Mass/Vol] Normal mg/dL Normal [facility] pH of Urine by Test stripOrd ered By: Sabrina Manriquez on 03-04-2024 pH (U) 5.5 [pH] Normal 5.0-9.0 [facility] Comment on above: Order Comment: Name Collection Type:: Clean-Voided Midstream Performed By: #### C 4, C3, CH50 #### [facility] , #### CBC, CMP, ESR, ADDONUAPLUS, CRP #### [facility] [address] [place] [address] Alanine aminotransferase [En zymatic activity/volume] in Serum or PlasmaOrdered By: Sabrina Manriquez on 11-19-2023 ALT [Catalytic activity/Vol] 28 U/L Normal 7-52 [facility] Comment on above: Performed By: #### E SR, ADDONUAPLUS, CBC, CMP, CRP #### [address] #### C4, C3, CH50 #### [facility] , Albumin [Mass/volume] in Ser um or Plasma by Bromocresol green (BCG) dye binding methoOrdered By: Sabrina Manriquez on 11-19-2023 Albumin BCG dye [Mass/Vol] 4.1 g/dL 3.5-5.7 [facility] Alkaline phosphatase [Enzyma tic activity/volume] in Serum or PlasmaOrdered By: Sabrina Manriquez on 11-19-2023 ALP [Catalytic activity/Vol] 70 U/L Normal 34-104 [facility] Comment on above: Performed By: #### E SR, ADDONUAPLUS, CBC, CMP, CRP #### [address] #### C4, C3, CH50 #### [facility] , Aspartate aminotransferase [ Enzymatic activity/volume] in Serum or PlasmaOrdered By: Sabrina Manriquez on 11-19-2023 AST [Catalytic activity/Vol] 29 U/L Normal 13-39 [facility] Comment on above: Performed By: #### E SR, ADDONUAPLUS, CBC, CMP, CRP #### [address] #### C4, C3, CH50 #### [facility] , Automated basophil %Ordered By: Sabrina Manriquez on 11-19-2023 Basophils/100 WBC (Bld) 0.7 % Normal . [facility] Comment on above: Performed By: #### C 4, C3, CH50 #### [facility] , #### CBC, CMP, ESR, ADDONUAPLUS, CRP #### [address] Automated basophil countOrde red By: Sabrina Manriquez on 11-19-2023 Basophils (Bld) [#/Vol] 0.0 10*3/uL Normal 0.0-0.2 [facility] Comment on above: Performed By: #### C 4, C3, CH50 #### [facility] , #### CBC, CMP, ESR, ADDONUAPLUS, CRP #### [address] Automated blood monocyte cou ntOrdered By: Sabrina Manriquez on 11-19-2023 Monocytes (Bld) [#/Vol] 0.5 10*3/uL Normal 0.0-0.8 [facility] Comment on above: Performed By: #### C 4, C3, CH50 #### [facility] , #### CBC, CMP, ESR, ADDONUAPLUS, CRP #### [facility] [address] [place] [address] Automated eosinophil %Ordere d By: Sabrina Manriquez on 11-19-2023 Eosinophils/100 WBC (Bld) 1.6 % Normal . [facility] Comment on above: Performed By: #### C 4, C3, CH50 #### [facility] , #### CBC, CMP, ESR, ADDONUAPLUS, CRP #### [facility] [address] [place] [address] Automated eosinophil countOr dered By: Sabrina Manriquez on 11-19-2023 Eosinophils (Bld) [#/Vol] 0.1 10*3/uL Normal 0.0-0.45 [facility] Comment on above: Performed By: #### C 4, C3, CH50 #### [facility] , #### CBC, CMP, ESR, ADDONUAPLUS, CRP #### [address] Automated epithelial cells c ount in urine sediment (number/area)Ordered By: Sabrina Manriquez on 11-19-2023 Epithelial cells Auto (Urine sed) [#/Area] None seen [HPF] 0-2 [facility] Automated monocyte %Ordered By: Sabrina Manriquez on 11-19-2023 Monocytes/100 WBC (Bld) 8.0 % Normal . [facility] Comment on above: Performed By: #### C 4, C3, CH50 #### [facility] , #### CBC, CMP, ESR, ADDONUAPLUS, CRP #### [address] Automated neutrophil %Ordere d By: Sabrina Manriquez on 11-19-2023 Neutrophils/100 WBC (Bld) 70.9 % Normal . [facility] Comment on above: Performed By: #### C 4, C3, CH50 #### [facility] , #### CBC, CMP, ESR, ADDONUAPLUS, CRP #### [address] Bacteria [Presence] in Urine by AutomatedOrdered By: Sabrina Manriquez on 11-19-2023 Bacteria Auto Ql (U) None seen [HPF] None Seen [facility] Bilirubin Test strip Ql (U)O rdered By: Sabrina Manriquez on 11-19-2023 Bilirubin Ql (U) Negative Negative [facility] Bilirubin.total [Mass/volume ] in Serum or PlasmaOrdered By: Sabrina Manriquez on 11-19-2023 Bilirubin [Mass/Vol] 0.5 mg/dL Normal 0.3-1.0 [facility] Comment on above: Performed By: #### E SR, ADDONUAPLUS, CBC, CMP, CRP #### [address] #### C4, C3, CH50 #### [facility] , C reactive protein [Mass/vol ume] in Serum or PlasmaOrdered By: Sabrina Manriquez on 11-19-2023 CRP [Mass/Vol] < 0.5 mg/dL 0.0-0.5 [facility] C-Reactive Proteinon 024 CRP [Mass/Vol] mg/L Normal 0.0-0.5 [facility] Comment on above: Result Comment: PERF ORMED BY: [place] [address] PATHOLOGIST GAS JOCKEY KRISTIE BAKER M.D. Performed By: #### C 4, C3, CH50 #### [facility] , #### CBC, CMP, ESR, ADDONUAPLUS, CRP #### [facility] [address] [place] [address] Calcium [Mass/volume] in Ser um or PlasmaOrdered By: Sabrina Manriquez on 11-19-2023 Calcium [Mass/Vol] 9.1 mg/dL Normal 8.6-10.3 [facility] Comment on above: Performed By: #### E SR, ADDONUAPLUS, CBC, CMP, CRP #### [facility] [address] [place] [address] #### C4, C3, CH50 #### [facility] , Carbon dioxide, total [Moles /volume] in Serum or PlasmaOrdered By: Sabrina Manriquez on 11-19-2023 CO2 [Moles/Vol] 30.2 mmol/L Normal 21.0-31.0 [facility] Comment on above: Performed By: #### E SR, ADDONUAPLUS, CBC, CMP, CRP #### [facility] [address] [place] [address] #### C4, C3, CH50 #### [facility] , Chloride [Moles/volume] in S lenny or PlasmaOrdered By: Sabrina Manriquez on 11-19-2023 Chloride [Moles/Vol] 105 mmol/L Normal 98-107 [facility] Comment on above: Performed By: #### E SR, ADDONUAPLUS, CBC, CMP, CRP #### [address] #### C4, C3, CH50 #### [facility] , Color of Urine by AutoOrdere d By: Sabrina Manriquez on 11-19-2023 Color (U) Yellow Normal Yellow [facility] Comment on above: Order Comment: Name Collection Type:: Clean-Voided Midstream Performed By: #### E SR, ADDONUAPLUS, CBC, CMP, CRP #### [address] #### C4, C3, CH50 #### [facility] , Complement C3on 11-19-2023 Complement C3 129 mg/dL Normal 82-167 [facility] Comment on above: Result Comment: Perf ormed at: - [facility] [place] [id number] Senior Firewall Engineer: Derek Toscano PhD, Phone: [phone] Performed By: #### C 4, C3, CH50 #### [facility] , #### CBC, CMP, ESR, ADDONUAPLUS, CRP #### [address] Complement C4on 11-19-2023 Complement C4 20 mg/dL Normal 12-38 [facility] Comment on above: Result Comment: PERF ORMED BY: [place] [address] PATHOLOGIST GAS JOCKEY KRISTIE BAKER M.D. Performed By: #### C 4, C3, CH50 #### [facility] , #### CBC, CMP, ESR, ADDONUAPLUS, CRP #### [address] Complement Total (CH50)on Complement Total (CH50) 48 Normal >41 [facility] Comment on above: Result [...] of range values. Performed at: - [facility] [address] [id number] Senior Firewall Engineer: Derek Toscano PhD, Phone: [phone] PERFORMED BY: [place] [address] PATHOLOGIST GAS JOCKEY KRISTIE BAKER M.D. Performed By: #### C 4, C3, CH50 #### [facility] , #### CBC, CMP, ESR, ADDONUAPLUS, CRP #### [address] Complete Blood Count Auto Di ffon 11-19-2023 Mean Corpuscular HGB Conc 34.0 g/dL Normal 32.5-35.6 [facility] Comment on above: Performed By: #### C 4, C3, CH50 #### [facility] , #### CBC, CMP, ESR, ADDONUAPLUS, CRP #### [address] NRBC% 0.1 /100{WBC} Normal 0-0.5 [facility] Comment on above: Performed By: #### C 4, C3, CH50 #### [facility] , #### CBC, CMP, ESR, ADDONUAPLUS, CRP #### [address] Comprehensive Metabolic Pane tanika 11-19-2023 Albumin [Mass/Vol] 4.1 g/dL Normal 3.5-5.7 [facility] Comment on above: Performed By: #### E SR, ADDONUAPLUS, CBC, CMP, CRP #### [place] [address] [place] #### C4, C3, CH50 #### [facility] , GFR/1.73 sq M.predicted MDRD (S/P/Bld) [Vol rate/Area] mL/min/{1.73_m2} Normal [facility] Comment on above: Performed By: #### E SR, ADDONUAPLUS, CBC, CMP, CRP #### [place] [address] [place] #### C4, C3, CH50 #### [facility] , Creatinine [Mass/volume] in Serum or PlasmaOrdered By: Sabrina Manriquez on 11-19-2023 Creatinine [Mass/Vol] 0.97 mg/dL Normal 0.70-1.30 [facility] Comment on above: Performed By: #### E SR, ADDONUAPLUS, CBC, CMP, CRP #### [address] #### C4, C3, CH50 #### [facility] , Dipstick and Microscopicon 0 11-19-2023 Appearance (U) Clear Normal Clear [facility] Comment on above: Order Comment: Name Collection Type:: Clean-Voided Midstream Performed By: #### E SR, ADDONUAPLUS, CBC, CMP, CRP #### [place] [address] [place] #### C4, C3, CH50 #### [facility] , Bacteria,Urine None Seen Normal None Seen [facility] Comment on above: Order Comment: Name Collection Type:: Clean-Voided Midstream Performed By: #### E SR, ADDONUAPLUS, CBC, CMP, CRP #### [place] [address] [place] #### C4, C3, CH50 #### [facility] , Bilirubin,Urine Negative Normal Negative [facility] Comment on above: Order Comment: Name Collection Type:: Clean-Voided Midstream Performed By: #### E SR, ADDONUAPLUS, CBC, CMP, CRP #### [address] #### C4, C3, CH50 #### [facility] , Glucose Ql (U) Normal Normal Normal [facility] Comment on above: Order Comment: Name Collection Type:: Clean-Voided Midstream Performed By: #### E SR, ADDONUAPLUS, CBC, CMP, CRP #### [address] #### C4, C3, CH50 #### [facility] , Hyaline Casts,Urine None Seen Normal 0-8 [facility] Comment on above: Order Comment: Name Collection Type:: Clean-Voided Midstream Result Comment: PERF ORMED BY: [place] [address] PATHOLOGIST GAS JOCKEY KRISTIE BAKER M.D. Performed By: #### E SR, ADDONUAPLUS, CBC, CMP, CRP #### [address] #### C4, C3, CH50 #### [facility] , Ketones Ql (U) Negative Normal Negative [facility] Comment on above: Order Comment: Name Collection Type:: Clean-Voided Midstream Performed By: #### E SR, ADDONUAPLUS, CBC, CMP, CRP #### [address] #### C4, C3, CH50 #### [facility] , Leukocyte esterase Test strip Ql (U) Negative Normal Negative [facility] Comment on above: Order Comment: Name Collection Type:: Clean-Voided Midstream Performed By: #### E SR, ADDONUAPLUS, CBC, CMP, CRP #### [address] #### C4, C3, CH50 #### [facility] , Nitrite,Urine Negative Normal Negative [facility] Comment on above: Order Comment: Name Collection Type:: Clean-Voided Midstream Performed By: #### E SR, ADDONUAPLUS, CBC, CMP, CRP #### [address] #### C4, C3, CH50 #### [facility] , Occult Blood,Urine Negative Normal Negative [facility] Comment on above: Order Comment: Name Collection Type:: Clean-Voided Midstream Performed By: #### E SR, ADDONUAPLUS, CBC, CMP, CRP #### [address] #### C4, C3, CH50 #### [facility] , Protein,Urine Negative Normal Negative [facility] Comment on above: Order Comment: Name Collection Type:: Clean-Voided Midstream Performed By: #### E SR, ADDONUAPLUS, CBC, CMP, CRP #### [address] #### C4, C3, CH50 #### [facility] , RBC LM.HPF (Urine sed) [#/Area] 0 /[HPF] Normal 0-4 [facility] Comment on above: Order Comment: Name Collection Type:: Clean-Voided Midstream Performed By: #### E SR, ADDONUAPLUS, CBC, CMP, CRP #### [place] [address] [place] #### C4, C3, CH50 #### [facility] , Specificy [place],Urine 1.021 Normal 1.001-1.03 0 [facility] Comment on above: Order Comment: Name Collection Type:: Clean-Voided Midstream Performed By: #### E SR, ADDONUAPLUS, CBC, CMP, CRP #### [address] #### C4, C3, CH50 #### [facility] , Squamous Epithelial Cell,Urine None Seen Normal 0-2 [facility] Comment on above: Order Comment: Name Collection Type:: Clean-Voided Midstream Performed By: #### E SR, ADDONUAPLUS, CBC, CMP, CRP #### [address] #### C4, C3, CH50 #### [facility] , Urobilinogen,Urine Normal Normal Normal [facility] Comment on above: Order Comment: Name Collection Type:: Clean-Voided Midstream Performed By: #### E SR, ADDONUAPLUS, CBC, CMP, CRP #### [address] #### C4, C3, CH50 #### [facility] , WBC LM.HPF (Urine sed) [#/Area] 0 /[HPF] Normal 0-4 [facility] Comment on above: Order Comment: Name Collection Type:: Clean-Voided Midstream Performed By: #### E SR, ADDONUAPLUS, CBC, CMP, CRP #### [address] #### C4, C3, CH50 #### [facility] , Erythrocyte Sedimentation Ra natan 11-19-2023 ESR (Bld) [Velocity] 5 mm/h Normal 0-19 [facility] Comment on above: Result Comment: PERF ORMED BY: [place] [address] PATHOLOGIST GAS JOCKEY KRISTIE BAKER M.D. Performed By: #### C 4, C3, CH50 #### [facility] , #### CBC, CMP, ESR, ADDONUAPLUS, CRP #### [address] Erythrocyte distribution wid th [Ratio] by Automated countOrdered By: Sabrina Manriquez on 11-19-2023 Erythrocyte distribution width (RBC) [Ratio] 13.7 % Normal 12.0-14.8 [facility] Comment on above: Performed By: #### C 4, C3, CH50 #### [facility] , #### CBC, CMP, ESR, ADDONUAPLUS, CRP #### [address] Erythrocyte sedimentation ra te by Photometric methodOrdered By: Sabrina Manriquez on 11-19-2023 ESR Photometric method (Bld) [Velocity] 5 mm/hr 0-19 [facility] Erythrocytes [#/area] in Uri ne sediment by Automated countOrdered By: Sabrina Manriquez on 11-19-2023 RBC Auto (Urine sed) [#/Area] 0-1 [HPF] 0-4 [facility] Erythrocytes [#/volume] in B lood by Automated countOrdered By: Sabrina Manriquez on 11-19-2023 RBC (Bld) [#/Vol] 4.64 10*6/uL Normal 3.90-5.60 [facility] Comment on above: Performed By: #### C 4, C3, CH50 #### [facility] , #### CBC, CMP, ESR, ADDONUAPLUS, CRP #### [address] Glucose [Mass/volume] in Ser um or PlasmaOrdered By: Sabrina Manriquez on 11-19-2023 Glucose [Mass/Vol] 115 mg/dL High 70-100 [facility] Comment on above: ADA recommended refe rence rangeRandom Glucose Reference Range is dependent on time and content of last meal. Glucose of more than 200 mg/dL in a nonstressed, ambulatory subject supports the diagnosis of Diabetes Mellitus. Result Comment: [place] om Glucose Reference Range is dependent on time and content of last meal. Glucose of more than 200 mg/dL in a nonstressed, ambulatory subject supports the diagnosis of Diabetes Mellitus. ADA recommended reference range Performed By: #### E SR, ADDONUAPLUS, CBC, CMP, CRP #### [facility] [address] [place] [address] [place] #### C4, C3, CH50 #### [facility] , Hematocrit [Volume Fraction] of Blood by Automated countOrdered By: Sabrina Manriquez on 11-19-2023 Hematocrit (Bld) [Volume fraction] 44.2 % Normal 38.8-50.0 [facility] Comment on above: Performed By: #### C 4, C3, CH50 #### [facility] , #### CBC, CMP, ESR, ADDONUAPLUS, CRP #### [address] Hemoglobin [Mass/volume] in BloodOrdered By: Sabrina Manriquez on 11-19-2023 Hemoglobin (Bld) [Mass/Vol] 15.0 g/dL Normal 13.0-17.0 [facility] Comment on above: Performed By: #### C 4, C3, CH50 #### [facility] , #### CBC, CMP, ESR, ADDONUAPLUS, CRP #### [address] Ketones Auto test strip (U) [Mass/Vol]Ordered By: Sabrina Manriquez on 11-19-2023 Ketones (U) [Mass/Vol] Negative Negative [facility] - UrinalysisOrder ed By: Sabrina Manriquez on 11-19-2023 Hyaline casts LM Ql (Urine sed) None seen [LPF] 0-8 [facility] Leukocytes [#/area] in Urine sediment by Automated countOrdered By: Sabrina Manriquez on 11-19-2023 WBC Auto (Urine sed) [#/Area] 0-1 [HPF] 0-4 [facility] Leukocytes [#/volume] correc leah for nucleated erythrocytes in Blood by Automated counOrdered By: Sabrina Manriquez on 11-19-2023 WBC corrected for nucl RBC Auto (Bld) [#/Vol] 5.7 10*3/uL 4.1-10.5 [facility] Leukocytes [#/volume] in Blo od by Automated countOrdered By: Sabrina Manriquez on 11-19-2023 WBC (Bld) [#/Vol] 5.7 10*3/uL Normal 4.1-10.5 [facility] Comment on above: Performed By: #### C 4, C3, CH50 #### [facility] , #### CBC, CMP, ESR, ADDONUAPLUS, CRP #### [facility] [address] Lymphocytes [#/volume] in Bl ood by Automated countOrdered By: Sabrina Manriquez on 11-19-2023 Lymphocytes (Bld) [#/Vol] 1.1 10*3/uL Normal 1.00-4.8 [facility] Comment on above: Performed By: #### C 4, C3, CH50 #### [facility] , #### CBC, CMP, ESR, ADDONUAPLUS, CRP #### [facility] [address] [place] [address] [place] Lymphocytes/100 leukocytes i n Blood by Automated countOrdered By: Sabrina Manriquez on 11-19-2023 Lymphocytes/100 WBC (Bld) 18.8 % Normal . [facility] Comment on above: Performed By: #### C 4, C3, CH50 #### [facility] , #### CBC, CMP, ESR, ADDONUAPLUS, CRP #### [facility] [address] [place] [address] [place] MCH [Entitic mass] by Automa leah countOrdered By: Sabrina Manriquez on 11-19-2023 MCH (RBC) [Entitic mass] 32.3 pg Normal 27.5-35.2 [facility] Comment on above: Performed By: #### C 4, C3, CH50 #### [facility] , #### CBC, CMP, ESR, ADDONUAPLUS, CRP #### [facility] [address] [place] [address] MCHC Auto (RBC) [Mass/Vol]Or dered By: Sabrina Manriquez on 11-19-2023 MCHC (RBC) [Mass/Vol] 34.0 g/dL 32.5-35.6 [facility] MCV [Entitic volume] by Auto mated countOrdered By: Sabrina Manriquez on 11-19-2023 MCV (RBC) [Entitic vol] 95.2 fL Normal 83.5-101 [facility] Comment on above: Performed By: #### C 4, C3, CH50 #### [facility] , #### CBC, CMP, ESR, ADDONUAPLUS, CRP #### [facility] [address] [place] [address] Neutrophils [#/volume] in Bl ood by Automated countOrdered By: Sabrina Manriquez on 11-19-2023 Neutrophils (Bld) [#/Vol] 4.1 10*3/uL Normal 1.8-7.7 [facility] Comment on above: Performed By: #### C 4, C3, CH50 #### [facility] , #### CBC, CMP, ESR, ADDONUAPLUS, CRP #### [address] Nitrite Test strip Ql (U)Ord ered By: Sabrina Manriquez on 11-19-2023 Nitrite Ql (U) Negative Negative [facility] No Panel InformationOrdered By: Sabrina Manriquez on 11-19-2023 Estimated GFR (CKD-EPI) > 60.0 mL/Min [facility] Creatinine Clearance (Chem N/A [facility] Nucleated erythrocytes [Pres ence] in Blood by Automated countOrdered By: Sabrina Manriquez on 11-19-2023 Nucleated RBC Auto Ql (Bld) 0.1 /100{WBC} 0-0.5 [facility] Platelet mean volume [Entiti c volume] in Blood by Automated countOrdered By: Sabrina Manriquez on 11-19-2023 Platelet mean volume (Bld) [Entitic vol] 9.3 fL Normal 6.6-10.1 [facility] Comment on above: Performed By: #### C 4, C3, CH50 #### [facility] , #### CBC, CMP, ESR, ADDONUAPLUS, CRP #### [address] Platelets [#/volume] in Bloo d by Automated countOrdered By: Sabrina Manriquez on 11-19-2023 Platelets (Bld) [#/Vol] 220 10*3/uL Normal 150-450 [facility] Comment on above: Performed By: #### C 4, C3, CH50 #### [facility] , #### CBC, CMP, ESR, ADDONUAPLUS, CRP #### [address] Potassium [Moles/volume] in Serum or PlasmaOrdered By: Sabrina Manriquez on 11-19-2023 Potassium [Moles/Vol] 4.4 mmol/L Normal 3.5-5.1 [facility] Comment on above: Performed By: #### E SR, ADDONUAPLUS, CBC, CMP, CRP #### [address] #### C4, C3, CH50 #### [facility] , Protein Auto test strip (U) [Mass/Vol]Ordered By: Sabrina Manriquez on 11-19-2023 Protein (U) [Mass/Vol] Negative Negative [facility] Protein [Mass/volume] in Ser um or PlasmaOrdered By: Sabrina Manriquez on 11-19-2023 Protein [Mass/Vol] 6.7 g/dL Normal 6.4-8.9 [facility] Comment on above: Performed By: #### E SR, ADDONUAPLUS, CBC, CMP, CRP #### [facility] [address] #### C4, C3, CH50 #### [facility] , Serum globulin measurement b y calculation (mass/volume)Ordered By: Sabrina Manriquez on 11-19-2023 Globulin (S) [Mass/Vol] 2.6 g/dL [facility] Comment on above: Performed By: #### E SR, ADDONUAPLUS, CBC, CMP, CRP #### [place] [address] [place] #### C4, C3, CH50 #### [facility] , Serum or plasma albumin/glob ulin mass ratioOrdered By: Sabrina Manriquez on 11-19-2023 Albumin/Globulin [Mass ratio] 1.6 {ratio} [facility] Comment on above: Performed By: #### E SR, ADDONUAPLUS, CBC, CMP, CRP #### [address] #### C4, C3, CH50 #### [facility] , Serum or plasma anion gap de terminationOrdered By: Sabrina Manriquez on 11-19-2023 Anion gap [Moles/Vol] 9.2 mmol/L Normal 6.0-15.0 [facility] Comment on above: Performed By: #### E SR, ADDONUAPLUS, CBC, CMP, CRP #### [place] [address] [place] #### C4, C3, CH50 #### [facility] , Sodium [Moles/volume] in Ser um or PlasmaOrdered By: Sabrina Manriquez on 11-19-2023 Sodium [Moles/Vol] 140 mmol/L Normal 136-145 [facility] Comment on above: Performed By: #### E SR, ADDONUAPLUS, CBC, CMP, CRP #### [place] [address] [place] #### C4, C3, CH50 #### [facility] , Specific gravity Auto test s trip (U) [Rel density]Ordered By: Sabrina Manriquez on 11-19-2023 Specific gravity (U) [Rel density] 1.021 1.001-1.03 0 [facility] Urea nitrogen [Mass/volume] in Serum or PlasmaOrdered By: Sabrina Manriquez on 11-19-2023 Urea nitrogen [Mass/Vol] 17 mg/dL Normal 7-25 [facility] Comment on above: Performed By: #### E SR, ADDONUAPLUS, CBC, CMP, CRP #### [facility] [address] [place] [address] #### C4, C3, CH50 #### [facility] , Urine clarity by refractomet ry automatedOrdered By: Sabrina Manriquez on 11-19-2023 Clarity Refractometry automated (U) Clear Clear [facility] Urine glucose measurement by automated test strip (mass/volume)Ordered By: Sabrina Manriquez on 11-19-2023 Glucose Auto test strip (U) [Mass/Vol] Normal mg/dL Normal [facility] Urine hemoglobin detection b y automated test stripOrdered By: Sabrina Manriquez on 11-19-2023 Hemoglobin Auto test strip Ql (U) Negative Negative [facility] Urine leukocyte esterase det ection by automated test stripOrdered By: Sabrina Manriquez on 11-19-2023 Leukocyte esterase Auto test strip Ql (U) Negative Negative [facility] Urine pH measurement by auto mated test stripOrdered By: Sabrina Manriquez on 11-19-2023 pH (U) 5.5 [pH] Normal 5.0-9.0 [facility] Comment on above: Order Comment: Name Collection Type:: Clean-Voided Midstream Performed By: #### E SR, ADDONUAPLUS, CBC, CMP, CRP #### [facility] [address] [place] [address] #### C4, C3, CH50 #### [facility] , Urobilinogen Auto test strip (U) [Mass/Vol]Ordered By: Sabrina Manriquez on 11-19-2023 Urobilinogen (U) [Mass/Vol] Normal mg/dL Normal [facility] Alanine aminotransferase [En zymatic activity/volume] in Serum or PlasmaOrdered By: Sabrina Manriquez on 07-18-2023 ALT [Catalytic activity/Vol] 32 U/L Normal 7-52 [facility] Comment on above: Performed By: #### C 4, C3, CH50 #### [facility] , #### CBC, CMP, ESR, ADDONUAPLUS, CRP #### [facility] [address] Albumin [Mass/volume] in Ser um or Plasma by Bromocresol green (BCG) dye binding methoOrdered By: Sabrina Manriquez on 07-18-2023 Albumin BCG dye [Mass/Vol] 4.3 g/dL 3.5-5.7 [facility] Alkaline phosphatase [Enzyma tic activity/volume] in Serum or PlasmaOrdered By: Sabrina Manriquez on 07-18-2023 ALP [Catalytic activity/Vol] 78 U/L Normal 34-104 [facility] Comment on above: Performed By: #### C 4, C3, CH50 #### [facility] , #### CBC, CMP, ESR, ADDONUAPLUS, CRP #### [facility] [address] [place] [address] [place] Aspartate aminotransferase [ Enzymatic activity/volume] in Serum or PlasmaOrdered By: Sabrina Manriquez on 07-18-2023 AST [Catalytic activity/Vol] 28 U/L Normal 13-39 [facility] Comment on above: Performed By: #### C 4, C3, CH50 #### [facility] , #### CBC, CMP, ESR, ADDONUAPLUS, CRP #### [facility] [address] [place] [address] [place] Automated basophil %Ordered By: Sabrina Manriquez on 07-18-2023 Basophils/100 WBC (Bld) 0.8 % Normal . [facility] Comment on above: Performed By: #### C 4, C3, CH50 #### [facility] , #### CBC, CMP, ESR, ADDONUAPLUS, CRP #### [address] Automated basophil countOrde red By: Sabrina Manriquez on 07-18-2023 Basophils (Bld) [#/Vol] 0.1 10*3/uL Normal 0.0-0.2 [facility] Comment on above: Performed By: #### C 4, C3, CH50 #### [facility] , #### CBC, CMP, ESR, ADDONUAPLUS, CRP #### [address] Automated blood monocyte cou ntOrdered By: Sabrina Manriquez on 07-18-2023 Monocytes (Bld) [#/Vol] 0.6 10*3/uL Normal 0.0-0.8 [facility] Comment on above: Performed By: #### C 4, C3, CH50 #### [facility] , #### CBC, CMP, ESR, ADDONUAPLUS, CRP #### [address] Automated eosinophil %Ordere d By: Sabrina Manriquez on 07-18-2023 Eosinophils/100 WBC (Bld) 0.7 % Normal . [facility] Comment on above: Performed By: #### C 4, C3, CH50 #### [facility] , #### CBC, CMP, ESR, ADDONUAPLUS, CRP #### [address] Automated eosinophil countOr dered By: Sabrina Manriquez on 07-18-2023 Eosinophils (Bld) [#/Vol] 0.0 10*3/uL Normal 0.0-0.45 [facility] Comment on above: Performed By: #### C 4, C3, CH50 #### [facility] , #### CBC, CMP, ESR, ADDONUAPLUS, CRP #### [address] Automated erythrocytes count in urine sediment (number/area)Ordered By: Sabrina Manriquez on 07-18-2023 RBC Auto (Urine sed) [#/Area] 0-1 [HPF] 0-4 [facility] Automated leukocytes count i n urine sediment (number/area)Ordered By: Sabrina Manriquez on 07-18-2023 WBC Auto (Urine sed) [#/Area] 0-1 [HPF] 0-4 [facility] Automated monocyte %Ordered By: Sabrina Manriquez on 07-18-2023 Monocytes/100 WBC (Bld) 8.9 % Normal . [facility] Comment on above: Performed By: #### C 4, C3, CH50 #### [facility] , #### CBC, CMP, ESR, ADDONUAPLUS, CRP #### [address] Automated neutrophil %Ordere d By: Sabrina Manriquez on 07-18-2023 Neutrophils/100 WBC (Bld) 74.5 % Normal . [facility] Comment on above: Performed By: #### C 4, C3, CH50 #### [facility] , #### CBC, CMP, ESR, ADDONUAPLUS, CRP #### [address] Automated urine color determ inationOrdered By: Sabrina Manriquez on 07-18-2023 Color (U) Yellow Normal Yellow [facility] Comment on above: Order Comment: Name Collection Type:: Clean-Voided Midstream Performed By: #### C 4, C3, CH50 #### [facility] , #### CBC, CMP, ESR, ADDONUAPLUS, CRP #### [address] Bilirubin Test strip Ql (U)O rdered By: Sabrina Manriquez on 07-18-2023 Bilirubin Ql (U) Negative Negative [facility] Bilirubin.total [Mass/volume ] in Serum or PlasmaOrdered By: Sabrina Manriquez on 07-18-2023 Bilirubin [Mass/Vol] 0.5 mg/dL Normal 0.3-1.0 [facility] Comment on above: Performed By: #### C 4, C3, CH50 #### [facility] , #### CBC, CMP, ESR, ADDONUAPLUS, CRP #### [place] [address] [place] C reactive protein [Mass/vol ume] in Serum or PlasmaOrdered By: Sabrina Manriquez on 07-18-2023 CRP [Mass/Vol] < 0.5 mg/dL 0.0-0.5 [facility] C-Reactive Proteinon 024 CRP [Mass/Vol] mg/L Normal 0.0-0.5 [facility] Comment on above: Result Comment: PERF ORMED BY: [place] [address] PATHOLOGIST GAS JOCKEY KRISTIE BAKER M.D. Performed By: #### C 4, C3, CH50 #### [facility] , #### CBC, CMP, ESR, ADDONUAPLUS, CRP #### [facility] [address] [place] [address] [place] Calcium [Mass/volume] in Ser um or PlasmaOrdered By: Sabrina Manriquez on 07-18-2023 Calcium [Mass/Vol] 9.2 mg/dL Normal 8.6-10.3 [facility] Comment on above: Performed By: #### C 4, C3, CH50 #### [facility] , #### CBC, CMP, ESR, ADDONUAPLUS, CRP #### [place] [address] [place] Carbon dioxide, total [Moles /volume] in Serum or PlasmaOrdered By: Sabrina Manriquez on 07-18-2023 CO2 [Moles/Vol] 30.1 mmol/L Normal 21.0-31.0 [facility] Comment on above: Performed By: #### C 4, C3, CH50 #### [facility] , #### CBC, CMP, ESR, ADDONUAPLUS, CRP #### [address] Chloride [Moles/volume] in S lenny or PlasmaOrdered By: Sabrina Manriquez on 07-18-2023 Chloride [Moles/Vol] 105 mmol/L Normal 98-107 [facility] Comment on above: Performed By: #### C 4, C3, CH50 #### [facility] , #### CBC, CMP, ESR, ADDONUAPLUS, CRP #### [address] Complement C3on 07-18-2023 Complement C3 118 mg/dL Normal 82-167 [facility] Comment on above: Result Comment: Perf ormed at: - [facility] [address] [id number] Senior Firewall Engineer: Derek Toscano PhD, Phone: [phone] Performed By: #### C 4, C3, CH50 #### [facility] , #### CBC, CMP, ESR, ADDONUAPLUS, CRP #### [address] Complement C4on 07-18-2023 Complement C4 23 mg/dL Normal 12-38 [facility] Comment on above: Result Comment: PERF ORMED BY: [place] [address] PATHOLOGIST GAS JOCKEY KRISTIE BAKER M.D. Performed By: #### C 4, C3, CH50 #### [facility] , #### CBC, CMP, ESR, ADDONUAPLUS, CRP #### [place] [address] [place] Complement Total (CH50)on Complement Total (CH50) 51 Normal >41 [facility] Comment on above: Result [...] of range values. Performed at: - [facility] [address] [id number] Senior Firewall Engineer: Derek Toscano PhD, Phone: [phone] PERFORMED BY: [place] [address] PATHOLOGIST GAS JOCKEY KRISTIE BAKER M.D. Performed By: #### C 4, C3, CH50 #### [facility] , #### CBC, CMP, ESR, ADDONUAPLUS, CRP #### [address] Complete Blood Count Auto Di ffon 07-18-2023 Mean Corpuscular HGB Conc 34.2 g/dL Normal 32.5-35.6 [facility] Comment on above: Performed By: #### C 4, C3, CH50 #### [facility] , #### CBC, CMP, ESR, ADDONUAPLUS, CRP #### [address] NRBC% 0.1 /100{WBC} Normal 0-0.5 [facility] Comment on above: Performed By: #### C 4, C3, CH50 #### [facility] , #### CBC, CMP, ESR, ADDONUAPLUS, CRP #### [address] Comprehensive Metabolic Pane tanika 07-18-2023 Albumin [Mass/Vol] 4.3 g/dL Normal 3.5-5.7 [facility] Comment on above: Performed By: #### C 4, C3, CH50 #### [facility] , #### CBC, CMP, ESR, ADDONUAPLUS, CRP #### [place] [address] [place] GFR/1.73 sq M.predicted MDRD (S/P/Bld) [Vol rate/Area] mL/min/{1.73_m2} Normal [facility] Comment on above: Performed By: #### C 4, C3, CH50 #### [facility] , #### CBC, CMP, ESR, ADDONUAPLUS, CRP #### [address] Creatinine [Mass/volume] in Serum or PlasmaOrdered By: Sabrina Manriquez on 07-18-2023 Creatinine [Mass/Vol] 0.93 mg/dL Normal 0.70-1.30 [facility] Comment on above: Performed By: #### C 4, C3, CH50 #### [facility] , #### CBC, CMP, ESR, ADDONUAPLUS, CRP #### [address] Dipstick and Microscopicon 0 07-18-2023 Appearance (U) Clear Normal Clear [facility] Comment on above: Order Comment: Name Collection Type:: Clean-Voided Midstream Performed By: #### C 4, C3, CH50 #### [facility] , #### CBC, CMP, ESR, ADDONUAPLUS, CRP #### [address] Bacteria,Urine None Seen Normal None Seen [facility] Comment on above: Order Comment: Name Collection Type:: Clean-Voided Midstream Performed By: #### C 4, C3, CH50 #### [facility] , #### CBC, CMP, ESR, ADDONUAPLUS, CRP #### [address] Bilirubin,Urine Negative Normal Negative [facility] Comment on above: Order Comment: Name Collection Type:: Clean-Voided Midstream Performed By: #### C 4, C3, CH50 #### [facility] , #### CBC, CMP, ESR, ADDONUAPLUS, CRP #### [address] Glucose Ql (U) Normal Normal Normal [facility] Comment on above: Order Comment: Name Collection Type:: Clean-Voided Midstream Performed By: #### C 4, C3, CH50 #### [facility] , #### CBC, CMP, ESR, ADDONUAPLUS, CRP #### [address] Hyaline Casts,Urine None Seen Normal 0-8 [facility] Comment on above: Order Comment: Name Collection Type:: Clean-Voided Midstream Result Comment: PERF ORMED BY: [place] [address] PATHOLOGIST GAS JOCKEY KRISTIE BAKER M.D. Performed By: #### C 4, C3, CH50 #### [facility] , #### CBC, CMP, ESR, ADDONUAPLUS, CRP #### [address] Ketones Ql (U) Trace High Negative [facility] Comment on above: Order Comment: Name Collection Type:: Clean-Voided Midstream Performed By: #### C 4, C3, CH50 #### [facility] , #### CBC, CMP, ESR, ADDONUAPLUS, CRP #### [address] Leukocyte esterase Test strip Ql (U) Negative Normal Negative [facility] Comment on above: Order Comment: Name Collection Type:: Clean-Voided Midstream Performed By: #### C 4, C3, CH50 #### [facility] , #### CBC, CMP, ESR, ADDONUAPLUS, CRP #### [place] [address] [place] Nitrite,Urine Negative Normal Negative [facility] Comment on above: Order Comment: Name Collection Type:: Clean-Voided Midstream Performed By: #### C 4, C3, CH50 #### [facility] , #### CBC, CMP, ESR, ADDONUAPLUS, CRP #### [address] Occult Blood,Urine Negative Normal Negative [facility] Comment on above: Order Comment: Name Collection Type:: Clean-Voided Midstream Performed By: #### C 4, C3, CH50 #### [facility] , #### CBC, CMP, ESR, ADDONUAPLUS, CRP #### [address] Protein,Urine Negative Normal Negative [facility] Comment on above: Order Comment: Name Collection Type:: Clean-Voided Midstream Performed By: #### C 4, C3, CH50 #### [facility] , #### CBC, CMP, ESR, ADDONUAPLUS, CRP #### [address] RBC LM.HPF (Urine sed) [#/Area] 0 /[HPF] Normal 0-4 [facility] Comment on above: Order Comment: Name Collection Type:: Clean-Voided Midstream Performed By: #### C 4, C3, CH50 #### [facility] , #### CBC, CMP, ESR, ADDONUAPLUS, CRP #### [place] [address] [place] Specificy [place],Urine 1.023 Normal 1.001-1.03 0 [facility] Comment on above: Order Comment: Name Collection Type:: Clean-Voided Midstream Performed By: #### C 4, C3, CH50 #### [facility] , #### CBC, CMP, ESR, ADDONUAPLUS, CRP #### [address] Squamous Epithelial Cell,Urine None Seen Normal 0-2 [facility] Comment on above: Order Comment: Name Collection Type:: Clean-Voided Midstream Performed By: #### C 4, C3, CH50 #### [facility] , #### CBC, CMP, ESR, ADDONUAPLUS, CRP #### [address] Urobilinogen,Urine Normal Normal Normal [facility] Comment on above: Order Comment: Name Collection Type:: Clean-Voided Midstream Performed By: #### C 4, C3, CH50 #### [facility] , #### CBC, CMP, ESR, ADDONUAPLUS, CRP #### [address] WBC LM.HPF (Urine sed) [#/Area] 0 /[HPF] Normal 0-4 [facility] Comment on above: Order Comment: Name Collection Type:: Clean-Voided Midstream Performed By: #### C 4, C3, CH50 #### [facility] , #### CBC, CMP, ESR, ADDONUAPLUS, CRP #### [address] Erythrocyte Sedimentation Ra natan 07-18-2023 ESR (Bld) [Velocity] 7 mm/h Normal 0-19 [facility] Comment on above: Result Comment: PERF ORMED BY: [place] [address] PATHOLOGIST GAS JOCKEY KRISTIE BAKER M.D. Performed By: #### C 4, C3, CH50 #### [facility] , #### CBC, CMP, ESR, ADDONUAPLUS, CRP #### [address] Erythrocyte distribution wid th [Ratio] by Automated countOrdered By: Sabrina Manriquez on 07-18-2023 Erythrocyte distribution width (RBC) [Ratio] 13.9 % Normal 12.0-14.8 [facility] Comment on above: Performed By: #### C 4, C3, CH50 #### [facility] , #### CBC, CMP, ESR, ADDONUAPLUS, CRP #### [facility] [address] Erythrocyte sedimentation ra te by Photometric methodOrdered By: Sabrina Manriquez on 07-18-2023 ESR Photometric method (Bld) [Velocity] 7 mm/hr 0-19 [facility] Erythrocytes [#/volume] in B lood by Automated countOrdered By: Sabrina Manriquez on 07-18-2023 RBC (Bld) [#/Vol] 4.69 10*6/uL Normal 3.90-5.60 [facility] Comment on above: Performed By: #### C 4, C3, CH50 #### [facility] , #### CBC, CMP, ESR, ADDONUAPLUS, CRP #### [address] Glucose [Mass/volume] in Ser um or PlasmaOrdered By: Sabrina Manriquez on 07-18-2023 Glucose [Mass/Vol] 89 mg/dL Normal 70-100 [facility] Comment on above: ADA recommended refe rence rangeRandom Glucose Reference Range is dependent on time and content of last meal. Glucose of more than 200 mg/dL in a nonstressed, ambulatory subject supports the diagnosis of Diabetes Mellitus. Result Comment: [place] om Glucose Reference Range is dependent on time and content of last meal. Glucose of more than 200 mg/dL in a nonstressed, ambulatory subject supports the diagnosis of Diabetes Mellitus. ADA recommended reference range Performed By: #### C 4, C3, CH50 #### [facility] , #### CBC, CMP, ESR, ADDONUAPLUS, CRP #### [facility] [address] Hematocrit [Volume Fraction] of Blood by Automated countOrdered By: Sabrina Manriquez on 07-18-2023 Hematocrit (Bld) [Volume fraction] 44.3 % Normal 38.8-50.0 [facility] Comment on above: Performed By: #### C 4, C3, CH50 #### [facility] , #### CBC, CMP, ESR, ADDONUAPLUS, CRP #### [facility] [address] Hemoglobin [Mass/volume] in BloodOrdered By: Sabrina Manriquez on 07-18-2023 Hemoglobin (Bld) [Mass/Vol] 15.2 g/dL Normal 13.0-17.0 [facility] Comment on above: Performed By: #### C 4, C3, CH50 #### [facility] , #### CBC, CMP, ESR, ADDONUAPLUS, CRP #### [facility] [address] [place] [address] Ketones Auto test strip (U) [Mass/Vol]Ordered By: Sabrina Manriquez on 07-18-2023 Ketones (U) [Mass/Vol] Trace Negative [facility] - UrinalysisOrder ed By: Sabrina Manriquez on 07-18-2023 Hyaline casts LM Ql (Urine sed) None seen [LPF] 0-8 [facility] Leukocytes [#/volume] correc leah for nucleated erythrocytes in Blood by Automated counOrdered By: Sabrina Manriquez on 07-18-2023 WBC corrected for nucl RBC Auto (Bld) [#/Vol] 6.3 10*3/uL 4.1-10.5 [facility] Leukocytes [#/volume] in Blo od by Automated countOrdered By: Sabrina Manriquez on 07-18-2023 WBC (Bld) [#/Vol] 6.3 10*3/uL Normal 4.1-10.5 [facility] Comment on above: Performed By: #### C 4, C3, CH50 #### [facility] , #### CBC, CMP, ESR, ADDONUAPLUS, CRP #### [facility] [address] Lymphocytes [#/volume] in Bl ood by Automated countOrdered By: Sabrina Manriquez on 07-18-2023 Lymphocytes (Bld) [#/Vol] 0.9 10*3/uL Low 1.00-4.8 [facility] Comment on above: Performed By: #### C 4, C3, CH50 #### [facility] , #### CBC, CMP, ESR, ADDONUAPLUS, CRP #### [address] Lymphocytes/100 leukocytes i n Blood by Automated countOrdered By: Sabrina Manriquez on 07-18-2023 Lymphocytes/100 WBC (Bld) 15.1 % Normal . [facility] Comment on above: Performed By: #### C 4, C3, CH50 #### [facility] , #### CBC, CMP, ESR, ADDONUAPLUS, CRP #### [address] MCH [Entitic mass] by Automa leah countOrdered By: Sabrina Manriquez on 07-18-2023 MCH (RBC) [Entitic mass] 32.3 pg Normal 27.5-35.2 [facility] Comment on above: Performed By: #### C 4, C3, CH50 #### [facility] , #### CBC, CMP, ESR, ADDONUAPLUS, CRP #### [address] MCHC Auto (RBC) [Mass/Vol]Or dered By: Sabrina Manriquez on 07-18-2023 MCHC (RBC) [Mass/Vol] 34.2 g/dL 32.5-35.6 [facility] MCV [Entitic volume] by Auto mated countOrdered By: Sabrina Manriquez on 07-18-2023 MCV (RBC) [Entitic vol] 94.4 fL Normal 83.5-101 [facility] [facility] Comment on above: Performed By: #### C 4, C3, CH50 #### [facility] , #### CBC, CMP, ESR, ADDONUAPLUS, CRP #### [facility] [address] [place] [address] Neutrophils [#/volume] in Bl ood by Automated countOrdered By: Sabrina Manriquez on 07-18-2023 Neutrophils (Bld) [#/Vol] 4.7 10*3/uL Normal 1.8-7.7 [facility] Comment on above: Performed By: #### C 4, C3, CH50 #### [facility] , #### CBC, CMP, ESR, ADDONUAPLUS, CRP #### [address] Nitrite Test strip Ql (U)Ord ered By: Sabrina Manriquez on 07-18-2023 Nitrite Ql (U) Negative Negative [facility] No Panel InformationOrdered By: Sabrina Manriquez on 07-18-2023 Estimated GFR (CKD-EPI) > 60.0 mL/Min [facility] Creatinine Clearance (Chem N/A [facility] Nucleated erythrocytes [Pres ence] in Blood by Automated countOrdered By: Sabrina Manriquez on 07-18-2023 Nucleated RBC Auto Ql (Bld) 0.1 /100{WBC} 0-0.5 [facility] Platelet mean volume [Entiti c volume] in Blood by Automated countOrdered By: Sabrina Manriquez on 07-18-2023 Platelet mean volume (Bld) [Entitic vol] 8.8 fL Normal 6.6-10.1 [facility] Comment on above: Performed By: #### C 4, C3, CH50 #### [facility] , #### CBC, CMP, ESR, ADDONUAPLUS, CRP #### [address] Platelets [#/volume] in Bloo d by Automated countOrdered By: Sabrina Manriquez on 07-18-2023 Platelets (Bld) [#/Vol] 235 10*3/uL Normal 150-450 [facility] Comment on above: Performed By: #### C 4, C3, CH50 #### [facility] , #### CBC, CMP, ESR, ADDONUAPLUS, CRP #### [facility] [address] Potassium [Moles/volume] in Serum or PlasmaOrdered By: Sabrina Manriquez on 07-18-2023 Potassium [Moles/Vol] 4.1 mmol/L Normal 3.5-5.1 [facility] Comment on above: Performed By: #### C 4, C3, CH50 #### [facility] , #### CBC, CMP, ESR, ADDONUAPLUS, CRP #### [facility] [address] Protein Auto test strip (U) [Mass/Vol]Ordered By: Sabrina Manriquez on 07-18-2023 Protein (U) [Mass/Vol] Negative Negative [facility] Protein [Mass/volume] in Ser um or PlasmaOrdered By: Sabrina Manriquez on 07-18-2023 Protein [Mass/Vol] 6.8 g/dL Normal 6.4-8.9 [facility] Comment on above: Performed By: #### C 4, C3, CH50 #### [facility] , #### CBC, CMP, ESR, ADDONUAPLUS, CRP #### [facility] [address] Serum globulin measurement b y calculation (mass/volume)Ordered By: Sabrina Manriquez on 07-18-2023 Globulin (S) [Mass/Vol] 2.5 g/dL Normal [facility] Comment on above: Performed By: #### C 4, C3, CH50 #### [facility] , #### CBC, CMP, ESR, ADDONUAPLUS, CRP #### [address] Serum or plasma albumin/glob ulin mass ratioOrdered By: Sabrina Manriquez on 07-18-2023 Albumin/Globulin [Mass ratio] 1.7 {ratio} Normal [facility] Comment on above: Performed By: #### C 4, C3, CH50 #### [facility] , #### CBC, CMP, ESR, ADDONUAPLUS, CRP #### [address] Serum or plasma anion gap de terminationOrdered By: Sabrina Manriquez on 07-18-2023 Anion gap [Moles/Vol] 9.0 mmol/L Normal 6.0-15.0 [facility] Comment on above: Performed By: #### C 4, C3, CH50 #### [facility] , #### CBC, CMP, ESR, ADDONUAPLUS, CRP #### [address] Sodium [Moles/volume] in Ser um or PlasmaOrdered By: Sabrina Manriquez on 07-18-2023 Sodium [Moles/Vol] 140 mmol/L Normal 136-145 [facility] Comment on above: Performed By: #### C 4, C3, CH50 #### [facility] , #### CBC, CMP, ESR, ADDONUAPLUS, CRP #### [address] Specific gravity Auto test s trip (U) [Rel density]Ordered By: Sabrina Manriquez on 07-18-2023 Specific gravity (U) [Rel density] 1.023 1.001-1.03 0 [facility] Squamous epithelial cells de tection in urine sediment by light microscopyOrdered By: Sabrina Manriquez on 07-18-2023 Epithelial cells.squamous LM Ql (Urine sed) None seen [HPF] 0-2 [facility] Urea nitrogen [Mass/volume] in Serum or PlasmaOrdered By: Sabrina Manriquez on 07-18-2023 Urea nitrogen [Mass/Vol] 22 mg/dL Normal 7-25 [facility] Comment on above: Performed By: #### C 4, C3, CH50 #### [facility] , #### CBC, CMP, ESR, ADDONUAPLUS, CRP #### [facility] [address] Urine bacteria detection by automated methodOrdered By: Sabrina Manriquez on 07-18-2023 Bacteria Auto Ql (U) None seen None Seen [facility] Urine clarity by refractomet ry automatedOrdered By: Sabrina Manriquez on 07-18-2023 Clarity Refractometry automated (U) Clear Clear [facility] Urine glucose measurement by automated test strip (mass/volume)Ordered By: Sabrina Manriquez on 07-18-2023 Glucose Auto test strip (U) [Mass/Vol] Normal mg/dL Normal [facility] Urine hemoglobin detection b y automated test stripOrdered By: Sabrina Manriquez on 07-18-2023 Hemoglobin Auto test strip Ql (U) Negative Negative [facility] Urine leukocyte esterase det ection by automated test stripOrdered By: Sabrina Manriquez on 07-18-2023 Leukocyte esterase Auto test strip Ql (U) Negative Negative [facility] Urine pH measurement by auto mated test stripOrdered By: Sabrina Manriquez on 07-18-2023 pH (U) 5.5 [pH] Normal 5.0-9.0 [facility] Comment on above: Order Comment: Name Collection Type:: Clean-Voided Midstream Performed By: #### C 4, C3, CH50 #### [facility] , #### CBC, CMP, ESR, ADDONUAPLUS, CRP #### [facility] [address] [place] [address] Urobilinogen Auto test strip (U) [Mass/Vol]Ordered By: Sabrina Manriquez on 07-18-2023 Urobilinogen (U) [Mass/Vol] Normal mg/dL Normal [facility] RAD - Ultrasound Reporton RAD - Ultrasound Report [id number] [facility] Ambulatory Visit Summaryon 1 Ambulatory Visit Summary JAY CARR :1960 Visit Date:04/08/2023 Ambulatory Visit Instructions Your Diagnosis Kidney stone BPH (benign prostatic hyperplasia) Hypocitraturia Family history of prostate cancer in father Erectile dysfunction Tests Performed Urnls Dip Stick Auto w/o Microscopy [place] 52205 XR Abdomen 1 View -- Results Pending [...] Shun MACHADO MD Where: [facility] Patient Educationon 04-08-20 23 Patient Education [...] ? 8 oz (237 mL) of milk, skugium-qgtqldolmoja-czf ry milk, and calcium-fortifiedfruit juice. Calcium-fortified means [...] Spinach (cooked), rhubarb, beets, sweet potatoes, and Bots[place]an chard. ? Peanuts. ? Potato chips, indonesian fries, and baked potatoes with skin on. ? Nuts and nut products. ? Chocolate. ? If you regularly take a diuretic medicine, make sure to eat at least 1 or 2 servings of fruits or vegetables that are high in potassium each day. These include: ? Avocado. ? Banana. ? [place], prune, carrot, or tomato juice. ? Baked [...] fish oil, or vitamin B6. ? Take kgoo-qjf-lllxyum and prescription medicines only as told by your health care provider. These include supplements. What foods should I limit? Limit your in (more content not included)... Normal [facility] Screenson 04-08-2023 Screens [id number] FF Normal [facility] Urology Office/Clinic Noteon 04-08-2023 Urology Office/Clinic [...] with voice recognition artificial intelligence software, specifically GradeStack, Apptentive and or PhoneGuard. Substitutions may have occurred due to the inherent limitations of voice recognition and artificial intelligence software. Follow-up With When Contact Information Shun MACHADO MD, URL [address] [address]- Additional Instructions: 1 yr w/ [...] Hypertension Hypocitraturia Kidney (more content not included)... Normal [facility] Comment on above: Result Comment: Elec tronically Signed By: Shun MACHADO MD\.br\Date and Time Signed: 04/08/23 12:06 EDT\.br\Electronically Co-Signed By: Yolie Aly\.br\Date and Time Co-Signed: 04/08/23 11:16 EDT Lab Report[facility] 04-05-2023 Lab Reports [id number] F Normal [facility] Lab Report[facility] 04-02-2023 Lab Reports [id number] F Normal [facility] RAD - MISCon 04-02-2023 RAD - MIS [id number] FF Normal [facility] CNOVon 03-12-2023 CNOV Office Visit (ORFTMN ) -------- JAY CARR ([id number]) 1960 M Date Time Provider Department 03/12/23 1:10 PM ANTWAN SORIANO ORFTMN During your visit today, we recorded the following information about you: Antwan Soriano MD 03/12/2023 2:46 PM Signed March 12, 2023 HPI: Jay Albrecht Bruno is a 62 yo male with history [...] PCP: Audrey Armstrong MD [address] [facility] [id number] FELLOW / RESIDENT: No fellow or resident assisted in (more content not included)... Normal [facility] Alanine aminotransferase [En zymatic activity/volume] in Serum or PlasmaOrdered By: Hudson De Leon on 02-19-2023 ALT [Catalytic activity/Vol] 24 U/L 7-52 [facility] Albumin [Mass/volume] in Ser um or Plasma by Bromocresol green (BCG) dye binding methoOrdered By: Hudson De Leon on 02-19-2023 Albumin BCG dye [Mass/Vol] 4.1 g/dL 3.5-5.7 [facility] Alkaline phosphatase [Enzyma tic activity/volume] in Serum or PlasmaOrdered By: Hudson De Leon on 02-19-2023 ALP [Catalytic activity/Vol] 90 U/L 34-104 [facility] Aspartate aminotransferase [ Enzymatic activity/volume] in Serum or PlasmaOrdered By: Hudson De Leon on 02-19-2023 AST [Catalytic activity/Vol] 27 U/L 13-39 [facility] Automated erythrocytes count in urine sediment (number/area)Ordered By: Hudson De Leon on 02-19-2023 RBC Auto (Urine sed) [#/Area] 0-1 [HPF] 0-4 [facility] Automated leukocytes count i n urine sediment (number/area)Ordered By: Hudson De Leon on 02-19-2023 WBC Auto (Urine sed) [#/Area] None seen [HPF] 0-4 [facility] Basophils Auto (Bld) [#/Vol] Ordered By: Hudson De Leon on 02-19-2023 Basophils (Bld) [#/Vol] 0.0 10*3/uL 0.0-0.2 [facility] Basophils/100 WBC Auto (Bld) Ordered By: Hudson De Leon on 02-19-2023 Basophils/100 WBC (Bld) 0.7 % . [facility] Bilirubin Test strip Ql (U)O rdered By: Hudson De Leon on 02-19-2023 Bilirubin Ql (U) Negative Negative [facility] Bilirubin.total [Mass/volume ] in Serum or PlasmaOrdered By: Hudson De Leon on 02-19-2023 Bilirubin [Mass/Vol] 0.6 mg/dL 0.3-1.0 [facility] Calcium [Mass/volume] in Ser um or PlasmaOrdered By: Hudson De Leon on 02-19-2023 Calcium [Mass/Vol] 9.0 mg/dL 8.6-10.3 [facility] Carbon dioxide, total [Moles /volume] in Serum or PlasmaOrdered By: Hudson De Leon on 02-19-2023 CO2 [Moles/Vol] 29.6 mmol/L 21.0-31.0 [facility] Chloride [Moles/volume] in S lenny or PlasmaOrdered By: Hudson De Leon on 02-19-2023 Chloride [Moles/Vol] 105 mmol/L 98-107 [facility] Color Auto (U)Ordered By: Jessica De Leon on 02-19-2023 Color (U) Yellow Yellow [facility] Creatinine [Mass/volume] in Serum or PlasmaOrdered By: Hudson De Leon on 02-19-2023 Creatinine [Mass/Vol] 0.95 mg/dL 0.70-1.30 [facility] Eosinophils Auto (Bld) [#/Vo l]Ordered By: Hudson De Leon on 02-19-2023 Eosinophils (Bld) [#/Vol] 0.0 10*3/uL 0.0-0.45 [facility] Eosinophils/100 WBC Auto (Bl d)Ordered By: Hudson De Leon on 02-19-2023 Eosinophils/100 WBC (Bld) 1.0 % . [facility] Erythrocyte distribution wid th Auto (RBC) [Ratio]Ordered By: Hudson De Leon on 02-19-2023 Erythrocyte distribution width (RBC) [Ratio] 13.6 % 12.0-14.8 [facility] Erythrocyte sedimentation ra te by Photometric methodOrdered By: Hudson De Leon on 02-19-2023 ESR Photometric method (Bld) [Velocity] 7 mm/hr 0-19 [facility] Globulin Calc (S) [Mass/Vol] Ordered By: Hudson De Leon on 02-19-2023 Globulin (S) [Mass/Vol] 2.6 g/dL [facility] Glucose [Mass/volume] in Ser um or PlasmaOrdered By: Hudson De Leon on 02-19-2023 Glucose [Mass/Vol] 108 mg/dL 70-100 [facility] Comment on above: ADA recommended refe rence rangeRandom Glucose Reference Range is dependent on time and content of last meal. Glucose of more than 200 mg/dL in a nonstressed, ambulatory subject supports the diagnosis of Diabetes Mellitus. Hematocrit Auto (Bld) [Volum e fraction]Ordered By: Hudson De Leon on 02-19-2023 Hematocrit (Bld) [Volume fraction] 42.3 % 38.8-50.0 [facility] Hemoglobin [Mass/volume] in BloodOrdered By: Hudson De Leon on 02-19-2023 Hemoglobin (Bld) [Mass/Vol] 14.3 g/dL 13.0-17.0 [facility] Ketones Auto test strip (U) [Mass/Vol]Ordered By: Hudson De Leon on 02-19-2023 Ketones (U) [Mass/Vol] Negative Negative [facility] - UrinalysisOrder ed By: Hudson De Leon on 02-19-2023 Hyaline casts LM Ql (Urine sed) None seen [LPF] 0-8 [facility] Leukocytes [#/volume] correc leah for nucleated erythrocytes in Blood by Automated counOrdered By: Hudson De Leon on 02-19-2023 WBC corrected for nucl RBC Auto (Bld) [#/Vol] 4.7 10*3/uL 4.1-10.5 [facility] Lymphocytes Auto (Bld) [#/Vo l]Ordered By: Hudson De Leon on 02-19-2023 Lymphocytes (Bld) [#/Vol] 0.9 10*3/uL 1.00-4.8 [facility] Lymphocytes/100 WBC Auto (Bl d)Ordered By: Hudson De Leon on 02-19-2023 Lymphocytes/100 WBC (Bld) 18.5 % . [facility] MCH Auto (RBC) [Entitic mass ]Ordered By: Hudson De Leon on 02-19-2023 MCH (RBC) [Entitic mass] 31.5 pg 27.5-35.2 [facility] MCHC Auto (RBC) [Mass/Vol]Or dered By: Hudson De Leon on 02-19-2023 MCHC (RBC) [Mass/Vol] 33.9 g/dL 32.5-35.6 [facility] MCV Auto (RBC) [Entitic vol] Ordered By: Hudson De Leon on 02-19-2023 MCV (RBC) [Entitic vol] 93.0 fL 83.5-101 [facility] Monocytes Auto (Bld) [#/Vol] Ordered By: Hudson De Leon on 02-19-2023 Monocytes (Bld) [#/Vol] 0.4 10*3/uL 0.0-0.8 [facility] Monocytes/100 WBC Auto (Bld) Ordered By: Hudson De Leon on 02-19-2023 Monocytes/100 WBC (Bld) 8.1 % . [facility] Neutrophils Auto (Bld) [#/Vo l]Ordered By: Hudson De Leon on 02-19-2023 Neutrophils (Bld) [#/Vol] 3.4 10*3/uL 1.8-7.7 [facility] Neutrophils/100 WBC Auto (Bl d)Ordered By: Hudson De Leon on 02-19-2023 Neutrophils/100 WBC (Bld) 71.7 % . [facility] Nitrite Test strip Ql (U)Ord ered By: Hudson De Leon on 02-19-2023 Nitrite Ql (U) Negative Negative [facility] No Panel InformationOrdered By: Hudson De Leon on 02-19-2023 Estimated GFR (CKD-EPI) > 60.0 mL/Min [facility] Creatinine Clearance (Chem N/A [facility] Nucleated erythrocytes [Pres ence] in Blood by Automated countOrdered By: Hudson De Leon on 02-19-2023 Nucleated RBC Auto Ql (Bld) 0.1 /100{WBC} 0-0.5 [facility] Platelet mean volume Auto (B ld) [Entitic vol]Ordered By: Hudson De Leon on 02-19-2023 Platelet mean volume (Bld) [Entitic vol] 9.0 fL 6.6-10.1 [facility] Platelets Auto (Bld) [#/Vol] Ordered By: Hudson De Leon on 02-19-2023 Platelets (Bld) [#/Vol] 198 10*3/uL 150-450 [facility] Potassium [Moles/volume] in Serum or PlasmaOrdered By: Hudson De Leon on 02-19-2023 Potassium [Moles/Vol] 4.0 mmol/L 3.5-5.1 [facility] Protein Auto test strip (U) [Mass/Vol]Ordered By: Hudson De Leon on 02-19-2023 Protein (U) [Mass/Vol] Negative Negative [facility] Protein [Mass/volume] in Ser um or PlasmaOrdered By: Hudson De Leon on 02-19-2023 Protein [Mass/Vol] 6.7 g/dL 6.4-8.9 [facility] RBC Auto (Bld) [#/Vol]Ordere d By: Hudson De Leon on 02-19-2023 RBC (Bld) [#/Vol] 4.55 10*6/uL 3.90-5.60 [facility] Serum or plasma albumin/glob ulin mass ratioOrdered By: Hudson De Leon on 02-19-2023 Albumin/Globulin [Mass ratio] 1.6 {ratio} [facility] Serum or plasma anion gap de terminationOrdered By: Hudson De Leon on 02-19-2023 Anion gap [Moles/Vol] 9.4 mmol/L 6.0-15.0 [facility] Sodium [Moles/volume] in Ser um or PlasmaOrdered By: Hudson De Leon on 02-19-2023 Sodium [Moles/Vol] 140 mmol/L 136-145 [facility] Specific gravity Auto test s trip (U) [Rel density]Ordered By: Hudson De Leon on 02-19-2023 Specific gravity (U) [Rel density] 1.018 1.001-1.03 0 [facility] Squamous epithelial cells de tection in urine sediment by light microscopyOrdered By: Hudson De Leon on 02-19-2023 Epithelial cells.squamous LM Ql (Urine sed) None seen [HPF] 0-2 [facility] Urea nitrogen [Mass/volume] in Serum or PlasmaOrdered By: Hudson De Leon on 02-19-2023 Urea nitrogen [Mass/Vol] 16 mg/dL 7-25 [facility] Urine bacteria detection by automated methodOrdered By: Hudson De Leon on 02-19-2023 Bacteria Auto Ql (U) None seen None Seen [facility] Urine clarity by refractomet ry automatedOrdered By: Hudson De Leon on 02-19-2023 Clarity Refractometry automated (U) Clear Clear [facility] Urine glucose measurement by automated test strip (mass/volume)Ordered By: Hudson De Leon on 02-19-2023 Glucose Auto test strip (U) [Mass/Vol] Normal mg/dL Normal [facility] Urine hemoglobin detection b y automated test stripOrdered By: Hudson De Leon on 02-19-2023 Hemoglobin Auto test strip Ql (U) Negative Negative [facility] Urine leukocyte esterase det ection by automated test stripOrdered By: Hudson De Leon on 02-19-2023 Leukocyte esterase Auto test strip Ql (U) Negative Negative [facility] Urobilinogen Auto test strip (U) [Mass/Vol]Ordered By: Hudson De Leon on 02-19-2023 Urobilinogen (U) [Mass/Vol] Normal mg/dL Normal [facility] WBC Auto (Bld) [#/Vol]Ordere d By: Hudson De Leon on 02-19-2023 WBC (Bld) [#/Vol] 4.7 10*3/uL 4.1-10.5 [facility] pH Auto test strip (U)Ordere d By: Hudson De Leon on 02-19-2023 pH (U) 5.5 [pH] 5.0-9.0 [facility] Alanine aminotransferase [En zymatic activity/volume] in Serum or PlasmaOrdered By: Hudson De Leon on 10-15-2022 ALT [Catalytic activity/Vol] 19 U/L 7-52 [facility] Albumin [Mass/volume] in Ser um or Plasma by Bromocresol green (BCG) dye binding methoOrdered By: Hudson De Leon on 10-15-2022 Albumin BCG dye [Mass/Vol] 4.1 g/dL 3.5-5.7 [facility] Alkaline phosphatase [Enzyma tic activity/volume] in Serum or PlasmaOrdered By: Hudson De Leon on 10-15-2022 ALP [Catalytic activity/Vol] 89 U/L 34-104 [facility] Aspartate aminotransferase [ Enzymatic activity/volume] in Serum or PlasmaOrdered By: Hudson De Leon on 10-15-2022 AST [Catalytic activity/Vol] 19 U/L 13-39 [facility] Automated erythrocytes count in urine sediment (number/area)Ordered By: Hudson De Leon on 10-15-2022 RBC Auto (Urine sed) [#/Area] 1-2 [HPF] 0-4 [facility] Automated leukocytes count i n urine sediment (number/area)Ordered By: Hudson De Leon on 10-15-2022 WBC Auto (Urine sed) [#/Area] None seen [HPF] 0-4 [facility] Basophils Auto (Bld) [#/Vol] Ordered By: Hudson De Leon on 10-15-2022 Basophils (Bld) [#/Vol] 0.0 10*3/uL 0.0-0.2 [facility] Basophils/100 WBC Auto (Bld) Ordered By: Hudson De Leon on 10-15-2022 Basophils/100 WBC (Bld) 0.5 % . [facility] Bilirubin Test strip Ql (U)O rdered By: Hudson De Leon on 10-15-2022 Bilirubin Ql (U) Negative Negative [facility] Bilirubin.total [Mass/volume ] in Serum or PlasmaOrdered By: Hudson De Leon on 10-15-2022 Bilirubin [Mass/Vol] 0.6 mg/dL 0.3-1.0 [facility] Calcium [Mass/volume] in Ser um or PlasmaOrdered By: Hudson De Leon on 10-15-2022 Calcium [Mass/Vol] 8.5 mg/dL 8.6-10.3 [facility] Carbon dioxide, total [Moles /volume] in Serum or PlasmaOrdered By: Hudson De Leon on 10-15-2022 CO2 [Moles/Vol] 27.8 mmol/L 21.0-31.0 [facility] Chloride [Moles/volume] in S lenny or PlasmaOrdered By: Hudson De Leon on 10-15-2022 Chloride [Moles/Vol] 106 mmol/L 98-107 [facility] Color Auto (U)Ordered By: Jessica De Leon on 10-15-2022 Color (U) Yellow Yellow [facility] Creatinine [Mass/volume] in Serum or PlasmaOrdered By: Hudson De Leon on 10-15-2022 Creatinine [Mass/Vol] 1.09 mg/dL 0.70-1.30 [facility] Eosinophils Auto (Bld) [#/Vo l]Ordered By: Hudson De Leon on 10-15-2022 Eosinophils (Bld) [#/Vol] 0.1 10*3/uL 0.0-0.45 [facility] Eosinophils/100 WBC Auto (Bl d)Ordered By: Hudson De Leon on 10-15-2022 Eosinophils/100 WBC (Bld) 1.6 % . [facility] Erythrocyte distribution wid th Auto (RBC) [Ratio]Ordered By: Hudson De Leon on 10-15-2022 Erythrocyte distribution width (RBC) [Ratio] 14.2 % 12.0-14.8 [facility] Erythrocyte sedimentation ra te by Photometric methodOrdered By: Hudson De Leon on 10-15-2022 ESR Photometric method (Bld) [Velocity] 6 mm/hr 0-19 [facility] Globulin Calc (S) [Mass/Vol] Ordered By: Hudson De Leon on 10-15-2022 Globulin (S) [Mass/Vol] 2.8 g/dL [facility] Glucose [Mass/volume] in Ser um or PlasmaOrdered By: Hudson De Leon on 10-15-2022 Glucose [Mass/Vol] 139 mg/dL 70-100 [facility] Comment on above: ADA recommended refe rence rangeRandom Glucose Reference Range is dependent on time and content of last meal. Glucose of more than 200 mg/dL in a nonstressed, ambulatory subject supports the diagnosis of Diabetes Mellitus. Hematocrit Auto (Bld) [Volum e fraction]Ordered By: Hudson De Leon on 10-15-2022 Hematocrit (Bld) [Volume fraction] 42.6 % 38.8-50.0 [facility] Hemoglobin [Mass/volume] in BloodOrdered By: Hudson De Leon on 10-15-2022 Hemoglobin (Bld) [Mass/Vol] 14.4 g/dL 13.0-17.0 [facility] Ketones Auto test strip (U) [Mass/Vol]Ordered By: Hudson De Leon on 10-15-2022 Ketones (U) [Mass/Vol] Negative Negative [facility] - UrinalysisOrder ed By: Hudson De Leon on 10-15-2022 Hyaline casts LM Ql (Urine sed) None seen [LPF] 0-8 [facility] Leukocytes [#/volume] correc leah for nucleated erythrocytes in Blood by Automated counOrdered By: Hudson De Leon on 10-15-2022 WBC corrected for nucl RBC Auto (Bld) [#/Vol] 4.9 10*3/uL 4.1-10.5 [facility] Lymphocytes Auto (Bld) [#/Vo l]Ordered By: Hudson De Leon on 10-15-2022 Lymphocytes (Bld) [#/Vol] 1.0 10*3/uL 1.00-4.8 [facility] Lymphocytes/100 WBC Auto (Bl d)Ordered By: Hudson De Leon on 10-15-2022 Lymphocytes/100 WBC (Bld) 20.0 % . [facility] MCH Auto (RBC) [Entitic mass ]Ordered By: Hudson De Leon on 10-15-2022 MCH (RBC) [Entitic mass] 31.2 pg 27.5-35.2 [facility] MCHC Auto (RBC) [Mass/Vol]Or dered By: Hudson De Leon on 10-15-2022 MCHC (RBC) [Mass/Vol] 33.7 g/dL 32.5-35.6 [facility] MCV Auto (RBC) [Entitic vol] Ordered By: Hudson De Leon on 10-15-2022 MCV (RBC) [Entitic vol] 92.8 fL 83.5-101 [facility] Monocytes Auto (Bld) [#/Vol] Ordered By: Hudson De Leon on 10-15-2022 Monocytes (Bld) [#/Vol] 0.4 10*3/uL 0.0-0.8 [facility] Monocytes/100 WBC Auto (Bld) Ordered By: Hudson De Leon on 10-15-2022 Monocytes/100 WBC (Bld) 8.6 % . [facility] Neutrophils Auto (Bld) [#/Vo l]Ordered By: Hudson De Leon on 10-15-2022 Neutrophils (Bld) [#/Vol] 3.4 10*3/uL 1.8-7.7 [facility] Neutrophils/100 WBC Auto (Bl d)Ordered By: Hudson De Leon on 10-15-2022 Neutrophils/100 WBC (Bld) 69.3 % . [facility] Nitrite Test strip Ql (U)Ord ered By: Hudson De Leon on 10-15-2022 Nitrite Ql (U) Negative Negative [facility] No Panel InformationOrdered By: Hudson De Leon on 10-15-2022 Estimated GFR (CKD-EPI) > 60.0 mL/Min [facility] Creatinine Clearance (Chem N/A [facility] Nucleated erythrocytes [Pres ence] in Blood by Automated countOrdered By: Hudson De Leon on 10-15-2022 Nucleated RBC Auto Ql (Bld) 0.1 /100{WBC} 0-0.5 [facility] Platelet mean volume Auto (B ld) [Entitic vol]Ordered By: Hudson De Leon on 10-15-2022 Platelet mean volume (Bld) [Entitic vol] 9.1 fL 6.6-10.1 [facility] Platelets Auto (Bld) [#/Vol] Ordered By: Hudson De Leon on 04-24-2023 Platelets (Bld) [#/Vol] 196 10*3/uL 150-450 [facility] Potassium [Moles/volume] in Serum or PlasmaOrdered By: Hudson De Leon on 10-15-2022 Potassium [Moles/Vol] 4.4 mmol/L 3.5-5.1 [facility] Protein Auto test strip (U) [Mass/Vol]Ordered By: Hudson De Leon on 10-15-2022 Protein (U) [Mass/Vol] Negative Negative Fi [facility] Protein [Mass/volume] in Ser um or PlasmaOrdered By: Hudson De Leon on 10-15-2022 Protein [Mass/Vol] 6.9 g/dL 6.4-8.9 [facility] RBC Auto (Bld) [#/Vol]Ordere d By: Hudson De Leon on 10-15-2022 RBC (Bld) [#/Vol] 4.60 10*6/uL 3.90-5.60 [facility] Serum or plasma albumin/glob ulin mass ratioOrdered By: Hudson De Leon on 10-15-2022 Albumin/Globulin [Mass ratio] 1.5 {ratio} [facility] Serum or plasma anion gap de terminationOrdered By: Hudson De Leon on 10-15-2022 Anion gap [Moles/Vol] 9.6 mmol/L 6.0-15.0 [facility] Sodium [Moles/volume] in Ser um or PlasmaOrdered By: Hudson De Leon on 10-15-2022 Sodium [Moles/Vol] 139 mmol/L 136-145 [facility] Specific gravity Auto test s trip (U) [Rel density]Ordered By: Hudson De Leon on 10-15-2022 Specific gravity (U) [Rel density] 1.022 1.001-1.03 0 [facility] Squamous epithelial cells de tection in urine sediment by light microscopyOrdered By: Hudson De Leon on 10-15-2022 Epithelial cells.squamous LM Ql (Urine sed) None seen [HPF] 0-2 [facility] Urea nitrogen [Mass/volume] in Serum or PlasmaOrdered By: Hudson De Leon on 10-15-2022 Urea nitrogen [Mass/Vol] 24 mg/dL 7-25 [facility] Urine bacteria detection by automated methodOrdered By: Hudson De Leon on 10-15-2022 Bacteria Auto Ql (U) None seen None Seen [facility] Urine clarity by refractomet ry automatedOrdered By: Hudson De Leon on 10-15-2022 Clarity Refractometry automated (U) Clear Clear [facility] Urine glucose measurement by automated test strip (mass/volume)Ordered By: Hudson De Leon on 10-15-2022 Glucose Auto test strip (U) [Mass/Vol] Normal mg/dL Normal [facility] Urine hemoglobin detection b y automated test stripOrdered By: Hudson De Leon on 10-15-2022 Hemoglobin Auto test strip Ql (U) Negative Negative [facility] Urine leukocyte esterase det ection by automated test stripOrdered By: Hudson De Leon on 10-15-2022 Leukocyte esterase Auto test strip Ql (U) Negative Negative [facility] Urobilinogen Auto test strip (U) [Mass/Vol]Ordered By: Hudson De Leon on 10-15-2022 Urobilinogen (U) [Mass/Vol] Normal mg/dL Normal [facility] WBC Auto (Bld) [#/Vol]Ordere d By: Hudson De Leon on 10-15-2022 WBC (Bld) [#/Vol] 4.9 10*3/uL 4.1-10.5 [facility] pH Auto test strip (U)Ordere d By: Hudson De Leon on 10-15-2022 pH (U) 5.5 [pH] 5.0-9.0 [facility] Covid-19 PCR (CVD[facility])on 08-23 SARS-CoV-2 (COVID-19) RNA LU+probe Ql (Unsp spec) Not detected Normal NOT DETECTED [facility] Comment on above: Result Comment: This test is not yet approved or cleared by the [place] FDA. When there are no FDA-approved or cleared tests available, and other criteria are met, FDA can make tests available under an emergency access mechanism called an Emergency Use Authorization (EUA). The EUA for this test is supported by the [place] of Health and Human Service's (HHS's) declaration [...] SARS-CoV-2. Performed By: #### I NSULIN #### [facility] [address] [place] [address] Dr. Carolyn King SYMPTOMATIC COVID-19 ANTIGEN on 09-11-2022 EUA Statement SEE BELOW Normal [facility] Comment on above: Result Comment: This [...] sooner. Performed By: #### C VDAGS #### [facility] [address] [place] [address] Dr. Carolyn King SARS-CoV-2 (COVID-19) RNA LU+probe Ql (Unsp spec) Negative Normal NEGATIVE [facility] Comment on above: Performed By: #### C VDAGS #### [facility] [address] [place], [place] [id number] Dr. Carolyn King CT FOOT RT WO [...] by: LAURY ZEPEDA Date: 2022-08-31 08:09 Normal [facility] US SINGLE QUAD RT UPPERon US SINGLE [...] by: LAURY ZEPEDA Date: 2022-08-31 07:41 Normal [facility] POINT OF CARE GLUCOSEon 05-24 Glucose [Mass/Vol] 125 mg/dL Critically high 74-106 [facility] Comment on above: Performed By: #### I NSULIN #### [facility] [address] [place] [address] Dr. Carolyn King Glucose [Mass/Vol] 105 mg/dL Normal 74-106 [facility] Comment on above: Performed By: #### I NSULIN #### [facility] [address] [address] [address] Carolyn King XR FOOT RT 2Von [...] BANDAR SAENZ Date: 2022-06-07 14:29 Normal [facility] Covid-19 PCR ([facility])on 05-24 SARS-CoV-2 (COVID-19) RNA LU+probe Ql (Unsp spec) Not detected Normal NOT DETECTED [facility] Comment on above: Result Comment: This test is not yet approved or cleared by the [place] FDA. When there are no FDA-approved or cleared tests available, and other criteria are met, FDA can make tests available under an emergency access mechanism called an Emergency Use Authorization (EUA). The EUA for this test is supported by the [place] of Health and Human Service's (HHS's) declaration [...] SARS-CoV-2. Performed By: #### I NSULIN #### [facility] [address] [place], [place] [address] Dr. Carolyn King Albumin [Mass/volume] in Ser um or PlasmaOrdered By: Hudson De Leon on 05-23-2022 Albumin [Mass/Vol] 3.9 g/dL 3.2-5.5 [facility] Automated erythrocytes count in urine sediment (number/area)Ordered By: Hudson De Leon on 05-23-2022 RBC Auto (Urine sed) [#/Area] None seen [HPF] 0-4 [facility] Automated leukocytes count i n urine sediment (number/area)Ordered By: Hudson De Leon on 05-23-2022 WBC Auto (Urine sed) [#/Area] None seen [HPF] 0-4 [facility] Basophils Auto (Bld) [#/Vol] Ordered By: Hudson De Leon on 05-23-2022 Basophils (Bld) [#/Vol] 0.0 10*3/uL 0.0-0.2 [facility] Basophils/100 WBC Auto (Bld) Ordered By: Hudson De Leon on 05-23-2022 Basophils/100 WBC (Bld) 0.6 % . [facility] Bilirubin Test strip Ql (U)O rdered By: Hudson De Leon on 05-23-2022 Bilirubin Ql (U) Negative Negative [facility] Color Auto (U)Ordered By: Jessica De Leon on 05-23-2022 Color (U) Yellow Yellow [facility] Creatinine and Glomerular fi ltration rate.predicted panel (S/P/Bld)Ordered By: Hudson De Leon on 05-23-2022 Creatinine [Mass/Vol] 0.92 mg/dL 0.64-1.27 [facility] Eosinophils Auto (Bld) [#/Vo l]Ordered By: Hudson De Leon on 05-23-2022 Eosinophils (Bld) [#/Vol] 0.0 10*3/uL 0.0-0.45 [facility] Eosinophils/100 WBC Auto (Bl d)Ordered By: Hudson De Leon on 05-23-2022 Eosinophils/100 WBC (Bld) 0.9 % . [facility] Erythrocyte distribution wid th Auto (RBC) [Ratio]Ordered By: Hudson De Leon on 05-23-2022 Erythrocyte distribution width (RBC) [Ratio] 13.4 % 12.0-14.8 [facility] Erythrocyte sedimentation ra te by Photometric methodOrdered By: Hudson De Leon on 05-23-2022 ESR Photometric method (Bld) [Velocity] 6 mm/hr 0-19 [facility] Estimated glomerular filtrat ion rate (GFR) non- AmericanOrdered By: Hudson De Leon on 05-23-2022 GFR/1.73 sq M.predicted among non-blacks MDRD (S/P/Bld) [Vol rate/Area] > 60 mL/Min [facility] Globulin Calc (S) [Mass/Vol] Ordered By: Hudson De Leon on 05-23-2022 Globulin (S) [Mass/Vol] 2.8 g/dL [facility] Hematocrit Auto (Bld) [Volum e fraction]Ordered By: Hudson De Leon on 05-23-2022 Hematocrit (Bld) [Volume fraction] 44.5 % 38.8-50.0 [facility] Hemoglobin [Mass/volume] in BloodOrdered By: Hudson De Leon on 05-23-2022 Hemoglobin (Bld) [Mass/Vol] 14.9 g/dL 13.0-17.0 [facility] Ketones Auto test strip (U) [Mass/Vol]Ordered By: Hudson De Leon on 05-23-2022 Ketones (U) [Mass/Vol] Negative Negative [facility] - UrinalysisOrder ed By: Hudson De Leon on 05-23-2022 Hyaline casts LM Ql (Urine sed) None seen [LPF] 0-8 [facility] Leukocytes [#/volume] correc leah for nucleated erythrocytes in Blood by Automated counOrdered By: Hudson De Leon on 05-23-2022 WBC corrected for nucl RBC Auto (Bld) [#/Vol] 5.2 10*3/uL 4.1-10.5 [facility] Lymphocytes Auto (Bld) [#/Vo l]Ordered By: Hudson De Leon on 05-23-2022 Lymphocytes (Bld) [#/Vol] 1.1 10*3/uL 1.00-4.8 [facility] Lymphocytes/100 WBC Auto (Bl d)Ordered By: Hudson De Leon on 05-23-2022 Lymphocytes/100 WBC (Bld) 21.1 % . [facility] MCH Auto (RBC) [Entitic mass ]Ordered By: Hudson De Leon on 05-23-2022 MCH (RBC) [Entitic mass] 31.2 pg 27.5-35.2 [facility] MCHC Auto (RBC) [Mass/Vol]Or dered By: Hudson De Leon on 05-23-2022 MCHC (RBC) [Mass/Vol] 33.5 g/dL 32.5-35.6 [facility] MCV Auto (RBC) [Entitic vol] Ordered By: Hudson De Leon on 05-23-2022 MCV (RBC) [Entitic vol] 93.3 fL 83.5-101 [facility] Monocytes Auto (Bld) [#/Vol] Ordered By: Hudson De Leon on 05-23-2022 Monocytes (Bld) [#/Vol] 0.5 10*3/uL 0.0-0.8 [facility] Monocytes/100 WBC Auto (Bld) Ordered By: Hudson De Leon on 05-23-2022 Monocytes/100 WBC (Bld) 10.3 % . [facility] Neutrophils Auto (Bld) [#/Vo l]Ordered By: Hudson De Leon on 05-23-2022 Neutrophils (Bld) [#/Vol] 3.5 10*3/uL 1.8-7.7 [facility] Neutrophils/100 WBC Auto (Bl d)Ordered By: Hudson De Leon on 05-23-2022 Neutrophils/100 WBC (Bld) 67.1 % . [facility] Nitrite Test strip Ql (U)Ord ered By: Hudson De Leon on 05-23-2022 Nitrite Ql (U) Negative Negative [facility] No Panel InformationOrdered By: Hudson De Leon on 05-23-2022 Estimated GFR () > 60 mL/Min [facility] Comment on above: GFR estimated refere nce range: According to KDOQI guidelines, <60 ml/min/1.73m2 is sufficient to diagnose a patient with chronic kidney disease. Pharmacy Creatinine Clearance (Chem N/A [facility] Nucleated erythrocytes [Pres ence] in Blood by Automated countOrdered By: Hudson De Leon on 05-23-2022 Nucleated RBC Auto Ql (Bld) 0.2 /100{WBC} 0-0.5 [facility] Platelet mean volume Auto (B ld) [Entitic vol]Ordered By: Hudson De Leon on 05-23-2022 Platelet mean volume (Bld) [Entitic vol] 9.4 fL 6.6-10.1 [facility] Platelets Auto (Bld) [#/Vol] Ordered By: Hudson De Leon on 05-23-2022 Platelets (Bld) [#/Vol] 234 10*3/uL 150-450 [facility] Protein Auto test strip (U) [Mass/Vol]Ordered By: Hudson De Leon on 05-23-2022 Protein (U) [Mass/Vol] Negative Negative Fi [facility] Protein [Mass/volume] in Ser um or PlasmaOrdered By: Hudson De Leon on 05-23-2022 Protein [Mass/Vol] 6.7 g/dL 6.1-7.9 [facility] RBC Auto (Bld) [#/Vol]Ordere d By: Hudson De Leon on 05-23-2022 RBC (Bld) [#/Vol] 4.77 10*6/uL 3.90-5.60 [facility] Serum or plasma alanine gates otransferase measurement without P-5'-P (enzymatic activiOrdered By: Hudson De Leon on 05-23-2022 ALT No additional P-5'-P [Catalytic activity/Vol] 27 U/L 10-60 [facility] Serum or plasma albumin/glob ulin mass ratioOrdered By: Hudson De Leon on 05-23-2022 Albumin/Globulin [Mass ratio] 1.4 {ratio} [facility] Serum or plasma alkaline amanda sphatase measurement (enzymatic activity/volume)Ordered By: Hudson De Leon on 05-23-2022 ALP [Catalytic activity/Vol] 90 U/L 32-92 [facility] Serum or plasma anion gap de terminationOrdered By: Hudson De Leon on 05-23-2022 Anion gap [Moles/Vol] 12.3 mmol/L 6.0-15.0 [facility] Serum or plasma aspartate am inotransferase measurement (enzymatic activity/volume)Ordered By: Hudson De Leon on 05-23-2022 AST [Catalytic activity/Vol] 31 U/L 10-42 [facility] Serum or plasma calcium karl urement (mass/volume)Ordered By: Hudson De Leon on 05-23-2022 Calcium [Mass/Vol] 9.1 mg/dL 8.2-10.2 [facility] Serum or plasma chloride reba surement (moles/volume)Ordered By: Hudson De Leon on 05-23-2022 Chloride [Moles/Vol] 102 mmol/L 95-114 [facility] Serum or plasma glucose karl urement (mass/volume)Ordered By: Hudson De Leon on 05-23-2022 Glucose [Mass/Vol] 75 mg/dL 70-100 [facility] Comment on above: ADA recommended refe rence rangeRandom Glucose Reference Range is dependent on time and content of last meal. Glucose of more than 200 mg/dL in a nonstressed, ambulatory subject supports the diagnosis of Diabetes Mellitus. Serum or plasma potassium me asurement (moles/volume)Ordered By: Hudson De Leon on 05-23-2022 Potassium [Moles/Vol] 4.0 mmol/L 3.5-5.1 [facility] Serum or plasma sodium measu rement (moles/volume)Ordered By: Hudson De Leon on 05-23-2022 Sodium [Moles/Vol] 137 mmol/L 136-146 [facility] Serum or plasma total biliru bin measurement (mass/volume)Ordered By: Hudson De Leon on 05-23-2022 Bilirubin [Mass/Vol] 0.6 mg/dL 0.3-1.2 [facility] Serum or plasma total carbon dioxide measurement (moles/volume)Ordered By: Hudson De Leon on 05-23-2022 CO2 [Moles/Vol] 26.7 mmol/L 22.0-30.0 [facility] Serum or plasma urea nitroge n measurement (mass/volume)Ordered By: Hudson De Leon on 05-23-2022 Urea nitrogen [Mass/Vol] 11 mg/dL 9- [facility] Specific gravity Auto test s trip (U) [Rel density]Ordered By: Hudson De Leon on 05-23-2022 Specific gravity (U) [Rel density] 1.014 1.001-1.03 0 [facility] Squamous epithelial cells de tection in urine sediment by light microscopyOrdered By: Hudson De Leon on 05-23-2022 Epithelial cells.squamous LM Ql (Urine sed) None seen [HPF] 0-2 [facility] Urine bacteria detection by automated methodOrdered By: Hudson De Leon on 05-23-2022 Bacteria Auto Ql (U) None seen None Seen [facility] Urine clarity by refractomet ry automatedOrdered By: Hudson De Leon on 05-23-2022 Clarity Refractometry automated (U) Clear Clear [facility] Urine glucose measurement by automated test strip (mass/volume)Ordered By: Hudson De Leon on 05-23-2022 Glucose Auto test strip (U) [Mass/Vol] Normal mg/dL Normal [facility] Urine hemoglobin detection b y automated test stripOrdered By: Hudson De Leon on 05-23-2022 Hemoglobin Auto test strip Ql (U) Negative Negative [facility] Urine leukocyte esterase det ection by automated test stripOrdered By: Hudson De Leon on 05-23-2022 Leukocyte esterase Auto test strip Ql (U) Negative Negative [facility] Urobilinogen Auto test strip (U) [Mass/Vol]Ordered By: Hudson De Leon on 05-23-2022 Urobilinogen (U) [Mass/Vol] Normal mg/dL Normal [facility] WBC Auto (Bld) [#/Vol]Ordere d By: Hudson De Leon on 05-23-2022 WBC (Bld) [#/Vol] 5.2 10*3/uL 4.1-10.5 [facility] pH Auto test strip (U)Ordere d By: Hudson De Leon on 05-23-2022 pH (U) 5.5 [pH] 5.0-9.0 [facility] BN SPINE, CERVICAL, 2 OR 3 V IEWSon 05-02-2022 BN SPINE, CERVICAL, 2 OR 3 VIEWS Patient Name: JAY CARR STUDY: SPINE, CERVICAL, 2 OR 3 VIEWS; 05/02/2022 9:46 am INDICATION: cervical post op 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 COMPARISON: 08/03/2021 ACCESSION NUMBER(S): [id number] ORDERING CLINICIAN: KENTON LAWSON FINDINGS: Two views of the cervical spine. Patient is status post anterior cervical discectomy and fusion from C5-C7. No hardware complication. No acute fracture. No focal subluxation. Mild multilevel degenerative changes. IMPRESSION: Postsurgical changes status post ACDF from C5-C7. No hardware complication. Mild multilevel spondylosis. Electronically signed by: FRANCISCO FOLEY MD Normal [facility]3] BN SPINE, LUMBOSACRAL; 2 OR 3 VIEWSon 05-02-2022 SPINE, LUMBOSACRAL; 2 OR 3 VIEWS Patient Name: JAY CARR STUDY: SPINE, LUMBOSACRAL; 2 OR 3 VIEWS; 05/02/2022 9:46 am INDICATION: AP/LAT M54.50: Lumbar back pain M48.062: Lumbar stenosis with neurogenic claudication. COMPARISON: 01/29/2022 ACCESSION NUMBER(S): [id number] ORDERING CLINICIAN: KENTON LAWSON FINDINGS: Two views [...] Electronically signed by: FRANCISCO FOLEY MD Normal [facility]3] Established Visit (Orthopaed ic Surgery)on 05-02-2022 Established [...] Present Illness Jay is a pleasant 62-year-old [id number]-goxeqsie male who presents today with his for [...] [facility] [employer] DO Work Phone: INSULINon 10-06-2022 Insulin 14.5 uIU/mL Normal 2.6-24.9 [facility] Comment on above: Performed By: #### I NSULIN #### [facility] [address] [place] [address] Dr. Carolyn King CBC AUTO DIFFon 03-28-2022 BASO # 0.0 103/ul Normal 0.0-0.1 [facility] Comment on above: Performed By: #### C BC #### [facility] [address] [place] [address] Dr. Carolyn King Basophils/100 WBC (Bld) 0.6 % Normal 0.2-2.0 [facility] Comment on above: Performed By: #### C BC #### [facility] [address] [place] [address] Dr. Carolyn King EO # 0.1 103/ul Normal 0.0-0.7 [facility] Comment on above: Performed By: #### C BC #### [facility] [address] [place] [address] Dr. Carolyn King Eosinophils/100 WBC (Bld) 1.6 % Normal 0.9-7.0 [facility] Comment on above: Performed By: #### C BC #### [facility] [address] [place] [address] Dr. Carolyn King Erythrocyte distribution width (RBC) [Ratio] 13.2 % Normal 11.0-15.0 [facility] Comment on above: Performed By: #### C BC #### [facility] [address] [place] [address] Dr. Carolyn King Hematocrit (Bld) [Volume fraction] 44.5 % Normal 42.0-54.0 [facility] Comment on above: Performed By: #### C BC #### [facility] [address] [place] [address] Dr. Carolyn King Hemoglobin (Bld) [Mass/Vol] 15.0 g/dL Normal 14.0-18.0 [facility] Comment on above: Performed By: #### C BC #### [facility] [address] [place] [address] Dr. Carolyn King IG # 0.01 10e3/ul Normal 0.00-0.03 [facility] Comment on above: Performed By: #### C BC #### [facility] [address] [place] [address] Dr. Carolyn King IG % 0.2 % Normal 0.0-0.5 [facility] Comment on above: Performed By: #### C BC #### [facility] [address] [place] [address] Dr. Carolyn King LYMPH # 1.0 103/ul Critically low 1.2-3.8 [facility] Comment on above: Performed By: #### C BC #### [facility] [address] [place] [address] Dr. Carolyn King Lymphocytes/100 WBC (Bld) 15.8 % Critically low 20.5-60.0 [facility] Comment on above: Performed By: #### C BC #### [facility] [address] [place] [address] Dr. Carolyn King MANUAL DIFF REQ NO Normal [facility] Comment on above: Performed By: #### C BC #### [facility] [address] [place] [address] Dr. Carolyn King MCH (RBC) [Entitic mass] 31.1 pg Normal 25.9-34.0 [facility] Comment on above: Performed By: #### C BC #### [facility] [address] [place] [address] Dr. Carolyn King MCHC (RBC) [Mass/Vol] 33.7 g/dL Normal 29.9-35.2 [facility] Comment on above: Performed By: #### C BC #### [facility] [address] [place] [address] Dr. Carolyn King MCV (RBC) [Entitic vol] 92.3 fL Normal 80.0-94.0 [facility] Comment on above: Performed By: #### C BC #### [facility] [address] [place] [address] Dr. Carolyn King MONO # 0.7 103/ul Normal 0.3-0.8 [facility] Comment on above: Performed By: #### C BC #### [facility] [address] [place] [address] Dr. Carolyn King Monocytes/100 WBC (Bld) 10.7 % Normal 1.7-12.0 [facility] Comment on above: Performed By: #### C BC #### [facility] [address] [place] [address] Dr. Carolyn King NEUT # 4.4 103/ul Normal 1.4-6.5 [facility] Comment on above: Performed By: #### C BC #### [facility] [address] [place] [address] Dr. Carolyn King Neutrophils/100 WBC (Bld) 71.1 % Normal 43.0-75.0 [facility] Comment on above: Performed By: #### C BC #### [facility] [address] [place] [address] Dr. Carolyn King Platelet mean volume (Bld) [Entitic vol] 10.2 fL Normal 9.5-13.5 [facility] Comment on above: Performed By: #### C BC #### [facility] [address] [place] [address] Dr. Carolyn King PLT 242 103/ul Normal 150-450 [facility] Comment on above: Performed By: #### C BC #### [facility] [address] [place] [address] Dr. Carolyn King RBC 4.82 106/ul Normal 4.70-6.10 [facility] Comment on above: Performed By: #### C BC #### [facility] [address] [place] [address] Dr. Carolyn King WBC 6.2 103/ul Normal 4.0-11.0 [facility] Comment on above: Performed By: #### C BC #### [facility] [address] [place] [address] Dr. Carolyn King FREE THYROXINE INDEX T7on FTI 2.55 Normal 1.30-4.50 [facility] Comment on above: Performed By: #### U ALLEN, TSH, T7, LIPID, CMP #### [facility] [address] [address] [address] Carolyn King T3U 30.0 % Critically low 33.0-40.0 [facility] Comment on above: Performed By: #### U ALLEN, TSH, T7, LIPID, CMP #### [facility] [address] [address] [address] Carolyn King T4 [Mass/Vol] 8.50 ug/dL Normal 4.50-12.10 [facility] Comment on above: Performed By: #### U ALLEN, TSH, T7, LIPID, CMP #### [facility] [address] [place] [address] Dr. Carolyn King GLYCOHEMOGLOBIN A1Con 2021 ADA RECOMMENDATION SEE BELOW Normal [facility] Comment on above: Result Comment: ADA RECOMMENDED LIMIT 4.0 - 6.0 ADA THERAPEUTIC TARGET < 7.0 ACTION SUGGESTED > 7.0 Performed By: #### A 1C #### [facility] [address] [address] [address] Carolyn King Glucose [Mass/Vol] 103 mg/dL Normal 74-106 [facility] Comment on above: Performed By: #### A 1C #### [facility] [address] [address] [address] Carolyn King Performed By: #### U ALLEN, TSH, T7, LIPID, CMP #### [facility] [address] [address] [address] Carolyn King HbA1c (Bld) [Mass fraction] 5.2 % Normal 4.5-6.2 [facility] Comment on above: Performed By: #### A 1C #### [facility] [address] [place] [address] Dr. Carolyn King LIPID PROFILEon 03-28-2022 CHOL-HDL RATIO NORM SEE BELOW Normal [facility] Comment on above: Result Comment: 3.3 - 4.4 LOW RISK 4.4 - 7.1 AVERAGE RISK 7.1 - 11.0 MODERATE RISK >11.0 HIGH RISK Performed By: #### U ALLEN, TSH, T7, LIPID, CMP #### [facility] [address] [address] [address] Carolyn King Cholesterol [Mass/Vol] 157 mg/dL Normal <=200 [facility] Comment on above: Performed By: #### U ALLEN, TSH, T7, LIPID, CMP #### [facility] [address] [address] [address] Carolyn King Cholesterol in HDL [Mass/Vol] 49 mg/dL Normal 40-60 [facility] Comment on above: Performed By: #### U ALLEN, TSH, T7, LIPID, CMP #### [facility] [address] [address] [address] Carolyn King Cholesterol in LDL [Mass/Vol] 85.6 mg/dL Normal [facility] Comment on above: Performed By: #### U ALLEN, TSH, T7, LIPID, CMP #### [facility] [address] [address] [address] Carolyn King Cholesterol.total/Chol esterol in HDL [Mass ratio] 3.2 {ratio} Normal [facility] Comment on above: Performed By: #### U ALLEN, TSH, T7, LIPID, CMP #### [facility] [address] [address] [address] Carolyn King HDL NORMAL > or = 60 mg/dl - LO W CARDIOVASCULAR RISK <40 mg/dl - HIGH CARDIOVASCULAR RISK Normal [facility] Comment on above: Performed By: #### U ALLEN, TSH, T7, LIPID, CMP #### [facility] [address] [address] [address] Carolyn King LDL CALC NORMAL SEE BELOW Normal [facility] Comment on above: Result Comment: <100 mg/dl OPTIMAL 100 - 129 mg/dl NEAR OR ABOVE OPTIMAL 130 - 159 mg/dl BORDERLINE HIGH 160 - 189 mg/dl HIGH >190 mg/dl VERY HIGH Performed By: #### U ALLEN, TSH, T7, LIPID, CMP #### [facility] [address] [address] [address] Carolyn King Triglyceride [Mass/Vol] 112 mg/dL Normal <=150 [facility] Comment on above: Performed By: #### U ALLEN, TSH, T7, LIPID, CMP #### [facility] [address] [address] [address] Carolyn King VLDL CALC 22.4 mg/dL Normal [facility] Comment on above: Performed By: #### U ALLEN, TSH, T7, LIPID, CMP #### [facility] [address] [address] [address] Carolyn King PROF 14(COMP METB)on 022 Albumin [Mass/Vol] 3.9 g/dL Normal 3.4-5.0 [facility] Comment on above: Performed By: #### U ALLEN, TSH, T7, LIPID, CMP #### [facility] [address] [place] [address] Dr. Carolyn King Albumin/Globulin [Mass ratio] 1.1 {ratio} Normal [facility] Comment on above: Performed By: #### U ALLEN, TSH, T7, LIPID, CMP #### [facility] [address] [place] [address] Dr. Carolyn King ALP [Catalytic activity/Vol] 108 U/L Normal 46-116 [facility] Comment on above: Performed By: #### U ALLEN, TSH, T7, LIPID, CMP #### [facility] [address] [address] [address] Carolyn King ALT [Catalytic activity/Vol] 28 U/L Normal 16-63 [facility] Comment on above: Performed By: #### U ALLEN, TSH, T7, LIPID, CMP #### [facility] [address] [address] [address] Carolyn King Anion gap [Moles/Vol] 6.6 mmol/L Normal [facility] Comment on above: Performed By: #### U ALLEN, TSH, T7, LIPID, CMP #### [facility] [address] [place] [address] Dr. Carolyn King AST [Catalytic activity/Vol] 22 U/L Normal 15-37 [facility] Comment on above: Performed By: #### U ALLEN, TSH, T7, LIPID, CMP #### [facility] [address] [place] [address] Dr. Carolyn King Bilirubin [Mass/Vol] 0.6 mg/dL Normal 0.2-1.0 [facility] Comment on above: Performed By: #### U ALLEN, TSH, T7, LIPID, CMP #### [facility] [address] [place] [address] Dr. Carolyn King Calcium [Mass/Vol] 8.7 mg/dL Normal 8.5-10.1 [facility] Comment on above: Performed By: #### U ALLEN, TSH, T7, LIPID, CMP #### [facility] [address] [place] [address] Dr. Carolyn King Chloride [Moles/Vol] 105 mmol/L Normal 98-107 [facility] Comment on above: Performed By: #### U ALLEN, TSH, T7, LIPID, CMP #### [facility] [address] [place] [address] Dr. Carolyn King CO2 [Moles/Vol] 30.6 mmol/L Normal 21.0-32.0 [facility] Comment on above: Performed By: #### U ALLEN, TSH, T7, LIPID, CMP #### [facility] [address] [place] [address] Dr. Carolyn King Creatinine [Mass/Vol] 0.96 mg/dL Normal 0.70-1.30 [facility] Comment on above: Performed By: #### U ALLEN, TSH, T7, LIPID, CMP #### [facility] [address] [place] [address] Dr. Carolyn King EGFR-AF TUVALUAN >60 Normal >=60 [facility] Comment on above: Performed By: #### U ALLEN, TSH, T7, LIPID, CMP #### [facility] [address] [place] [address] Dr. Carolyn King EGFR-NON AF TUVALUAN >60 Normal >=60 [facility] Comment on above: Performed By: #### U ALLEN, TSH, T7, LIPID, CMP #### [facility] [address] [place] [address] Dr. Carolyn King Globulin (S) [Mass/Vol] 3.5 g/dL Normal [facility] Comment on above: Performed By: #### U ALLEN, TSH, T7, LIPID, CMP #### [facility] [address] [address] [address] Carolyn King Potassium [Moles/Vol] 4.2 mmol/L Normal 3.5-5.1 [facility] Comment on above: Performed By: #### U ALLEN, TSH, T7, LIPID, CMP #### [facility] [address] [place] [address] Dr. Carolyn King Protein [Mass/Vol] 7.4 g/dL Normal 6.4-8.2 [facility] Comment on above: Performed By: #### U ALLEN, TSH, T7, LIPID, CMP #### [facility] [address] [place] [address] Dr. Carolyn King Sodium [Moles/Vol] 138 mmol/L Normal 136-145 [facility] Comment on above: Performed By: #### U ALLEN, TSH, T7, LIPID, CMP #### [facility] [address] [place] [address] Dr. Carolyn King Urea nitrogen [Mass/Vol] 16.0 mg/dL Normal 7.0-18.0 [facility] Comment on above: Performed By: #### U ALLEN, TSH, T7, LIPID, CMP #### [facility] [address] [place] [address] Dr. Carolyn King Urea nitrogen/Creatinine [Mass ratio] 16.7 mg/mg Normal [facility] Comment on above: Performed By: #### U ALLEN, TSH, T7, LIPID, CMP #### [facility] [address] [place] [address] Dr. Carolyn King TSHon 03-28-2022 TSH 1.986 uIU/mL Normal 0.358-3.74 0 [facility] Comment on above: Performed By: #### U ALLEN, TSH, T7, LIPID, CMP #### [facility] [address] [place] [address] Dr. Carolyn King URIC ACID SERUMon 03-28-2022 Urate [Mass/Vol] 5.5 mg/dL Normal 3.5-7.2 [facility] Comment on above: Performed By: #### U ALLEN, TSH, T7, LIPID, CMP #### [facility] [address] [address] [address] Carolyn King Ammonium urate crystals dete ction in stone by infrared spectroscopyOrdered By: Shun Machado on 02-15-2022 Ammonium urate crystals Infrared spectroscopy Ql (Stone) N/A [facility] Basophils Auto (Bld) [#/Vol] Ordered By: Steve Pina on 02-15-2022 Basophils (Bld) [#/Vol] 0.0 10*3/uL 0.0-0.2 [facility] Basophils/100 WBC Auto (Bld) Ordered By: Steve Pina on 02-15-2022 Basophils/100 WBC (Bld) 0.9 % . [facility] Blood hemoglobin measurement (mass/volume)Ordered By: Steve Pina on 02-15-2022 Hemoglobin (Bld) [Mass/Vol] 14.2 g/dL 13.0-17.0 [facility] Blood leukocytes automated c ount (number/volume)Ordered By: Steve Pina on 02-15-2022 WBC (Bld) [#/Vol] 4.5 10*3/uL 4.5-11.0 [facility] Calcium bilirubinate measure mentOrdered By: Shun Machado on 02-15-2022 Calcium bilirubinate (Stone) [Mass fraction] N/A [facility] Calcium carbonate measuremen tOrdered By: Shun Machado on 02-15-2022 Calcium carbonate (Stone) [Mass fraction] N/A [facility] Calcium hydrogen phosphate d ihydrate/Total in StoneOrdered By: Shun Machado on 02-15-2022 Calcium hydrogen phosphate dihydrate (Stone) [Mass fraction] N/A [facility] Calcium oxalate dihydrate cr ystals detection in stone by infrared spectroscopyOrdered By: Shun Machado on 02-15-2022 Calcium oxalate dihydrate crystals Infrared spectroscopy Ql (Stone) 10 % . [facility] Calcium oxalate monohydrate/ Total in StoneOrdered By: Shun Machado on 02-15-2022 Calcium oxalate monohydrate (Stone) [Mass fraction] 90 % . [facility] Calcium phosphate measuremen tOrdered By: Shun Machado on 02-15-2022 Calcium phosphate (Stone) [Mass fraction] N/A [facility] Calculus analysis interpreta tion in stoneOrdered By: Shun Machado on 02-15-2022 Calculus analysis [Interp] N/A [facility] Calculus analysis [Interp] See comment . [facility] Comment on above: Physician questions regarding Calculi Analysis contact [email or web address] at: [phone]. Calculi report will follow via computer, mail or licensing manager delivery. Calculus analysis with calcu iggy photography interpretation in stoneOrdered By: Shun Machado on 02-15-2022 Calculus analysis with calculus photography [Interp] See comment . [facility] Comment on above: Photograph will foll ow under a separate cover Cellular material measuremen t in stone by estimated (mass/mass)Ordered By: Shun Machado on 02-15-2022 Cellular material Est (Stone) [Mass/Mass] N/A [facility] Cholesterol/Total in StoneOr dered By: Shun Machado on 02-15-2022 Cholesterol (Stone) [Mass fraction] N/A [facility] Composition of stoneOrdered By: Shun Machado on 02-15-2022 Composition Nom (Stone) See comment . [facility] Comment on above: Percentage (Represen ts the % composition) Creatinine and Glomerular fi ltration rate.predicted panel (S/P/Bld)Ordered By: Steve Pina on 02-15-2022 Creatinine [Mass/Vol] 0.96 mg/dL 0.64-1.27 [facility] Cystine measurementOrdered B y: Shun Machado on 02-15-2022 Cystine (Unsp spec) [Moles/Vol] N/A [facility] Determination of color of ca lculusOrdered By: Shun Machado on 02-15-2022 Color (Stone) Brown . [facility] Eosinophils Auto (Bld) [#/Vo l]Ordered By: Steve Pina on 02-15-2022 Eosinophils (Bld) [#/Vol] 0.1 10*3/uL 0.0-0.45 [facility] Eosinophils/100 WBC Auto (Bl d)Ordered By: Steve Pina on 02-15-2022 Eosinophils/100 WBC (Bld) 2.7 % . [facility] Erythrocyte distribution wid th Auto (RBC) [Ratio]Ordered By: Steve Pina on 02-15-2022 Erythrocyte distribution width (RBC) [Ratio] 14.0 % 12.0-14.8 [facility] Estimated glomerular filtrat ion rate (GFR) non- AmericanOrdered By: Steve Pina on 02-15-2022 GFR/1.73 sq M.predicted among non-blacks MDRD (S/P/Bld) [Vol rate/Area] > 60 mL/Min [facility] Hematocrit Auto (Bld) [Volum e fraction]Ordered By: Steve Pina on 02-15-2022 Hematocrit (Bld) [Volume fraction] 42.2 % 38.8-50.0 [facility] Hydroxyapatite [Energy Diffe rence] in 24 hour UrineOrdered By: Shun Machado on 02-15-2022 Hydroxyapatite (24H U) [Energy diff] N/A [facility] Laboratory - Hematology and Cell countsOrdered By: Steve Pina on 02-15-2022 Nucleated RBC/100 WBC (Bld) [Ratio] 0.0 % 0-0.5 [facility] Lymphocytes Auto (Bld) [#/Vo l]Ordered By: Steve Pina on 02-15-2022 Lymphocytes (Bld) [#/Vol] 1.0 10*3/uL 1.00-4.8 [facility] Lymphocytes/100 WBC Auto (Bl d)Ordered By: Steve Pina on 02-15-2022 Lymphocytes/100 WBC (Bld) 21.3 % . [facility] MCH Auto (RBC) [Entitic mass ]Ordered By: Steve Pina on 02-15-2022 MCH (RBC) [Entitic mass] 31.0 pg 27.5-35.2 [facility] MCHC Auto (RBC) [Mass/Vol]Or dered By: Steve Pina on 02-15-2022 MCHC (RBC) [Mass/Vol] 33.7 g/dL 32.5-35.6 [facility] MCV Auto (RBC) [Entitic vol] Ordered By: Steve Pina on 02-15-2022 MCV (RBC) [Entitic vol] 92.1 fL 83.5-101 [facility] Measurement of proportion of calculus composed of dried blood (mass/mass)Ordered By: Shun Machado on 02-15-2022 Blood.dried (Stone) [Mass fraction] N/A [facility] Monocytes Auto (Bld) [#/Vol] Ordered By: Steve Pina on 02-15-2022 Monocytes (Bld) [#/Vol] 0.5 10*3/uL 0.0-0.8 [facility] Monocytes/100 WBC Auto (Bld) Ordered By: Steve Pina on 02-15-2022 Monocytes/100 WBC (Bld) 10.1 % . [facility] Neutrophils Auto (Bld) [#/Vo l]Ordered By: Steve Pina on 02-15-2022 Neutrophils (Bld) [#/Vol] 3.0 10*3/uL 1.8-7.7 [facility] Neutrophils/100 WBC Auto (Bl d)Ordered By: Steve Pina on 02-15-2022 Neutrophils/100 WBC (Bld) 65.0 % . [facility] Newberyite/Total in StoneOrd ered By: Shun Machado on 02-15-2022 Newberyite (Stone) [Mass fraction] N/A [facility] No Panel InformationOrdered By: Shun Machado on 02-15-2022 Stone 2,8 Dihydroxyadenine N/A [facility] Disclaimer See comment . [facility] Comment on above: This test was develo ped and its performance characteristics determined by [facility]. It has not been cleared or approved by the Food and Drug Administration. Performed at: [facility] [address] [place] [address] Dr [address], [place], [place] [id number] Senior Firewall Engineer: Riley Parikh PhD, Phone: [phone] [facility] Bilirubinate N/A [facility] Calcium Palmitate N/A [facility] Stone Calcium Stearate N/A [facility] Carbonate Apatite N/A [facility] Stone Drug or Metabolite N/A [facility] Stone Other Constituent N/A [facility] Stone Xanthine N/A [facility] No Panel InformationOrdered By: Steve Pina on 02-15-2022 Estimated GFR () > 60 mL/Min [facility] Comment on above: GFR estimated refere nce range: According to KDOQI guidelines, <60 ml/min/1.73m2 is sufficient to diagnose a patient with chronic kidney disease. Pharmacy Creatinine Clearance (Chem 93.62 [facility] Platelet mean volume Auto (B ld) [Entitic vol]Ordered By: Steve Pina on 02-15-2022 Platelet mean volume (Bld) [Entitic vol] 7.9 fL 6.6-10.1 [facility] Platelets Auto (Bld) [#/Vol] Ordered By: Steve Pina on 02-15-2022 Platelets (Bld) [#/Vol] 202 10*3/uL 150-450 [facility] RBC Auto (Bld) [#/Vol]Ordere d By: Steve Pina on 02-15-2022 RBC (Bld) [#/Vol] 4.58 10*6/uL 3.90-5.60 [facility] Serum or plasma calcium karl urement (mass/volume)Ordered By: Steve Pina on 02-15-2022 Calcium [Mass/Vol] 9.0 mg/dL 8.2-10.2 [facility] Serum or plasma chloride reba surement (moles/volume)Ordered By: Steve Pina on 02-15-2022 Chloride [Moles/Vol] 102 mmol/L 95-114 [facility] Serum or plasma glucose karl urement (mass/volume)Ordered By: Steve Pina on 02-15-2022 Glucose [Mass/Vol] 108 mg/dL 70-100 [facility] Comment on above: ADA recommended refe rence range Random Glucose Reference Range is dependent on time and content of last meal. Glucose of more than 200 mg/dL in a nonstressed, ambulatory subject supports the diagnosis of Diabetes Mellitus. Serum or plasma potassium me asurement (moles/volume)Ordered By: Steve Pina on 02-15-2022 Potassium [Moles/Vol] 3.9 mmol/L 3.5-5.1 [facility] Serum or plasma sodium measu rement (moles/volume)Ordered By: Steve Pina on 02-15-2022 Sodium [Moles/Vol] 137 mmol/L 136-146 [facility] Serum or plasma total carbon dioxide measurement (moles/volume)Ordered By: Steve Pina on 02-15-2022 CO2 [Moles/Vol] 28.0 mmol/L 22.0-30.0 [facility] Serum or plasma urea nitroge n measurement (mass/volume)Ordered By: Steve Pina on 02-15-2022 Urea nitrogen [Mass/Vol] 11 mg/dL 9-23 [facility] Size [Entitic volume] of Sto neOrdered By: Shun Machado on 02-15-2022 Size (Stone) [Entitic vol] 5x3 mm . [facility] Comment on above: Multiple pieces rece ived. Dimensions of the largest piece reported. Sodium urate crystals detect ion in stone by infrared spectroscopyOrdered By: Shun Machado on 02-15-2022 Sodium urate crystals Infrared spectroscopy Ql (Stone) N/A [facility] Specimen source subject [Typ e]Ordered By: Shun Machado on 02-15-2022 Specimen source subject Nom See comment . [facility] Comment on above: Right Ureter Triamterene measurement in c alculusOrdered By: Shun Machado on 02-15-2022 Triamterene (Stone) [Mass fraction] N/A [facility] Triple phosphate/Total in St oneOrdered By: Shun Machado on 02-15-2022 Triple phosphate (Stone) [Mass fraction] N/A [facility] Uric acid dihydrate crystals detection in stone by infrared spectroscopyOrdered By: Shun Machado on 02-15-2022 Urate dihydrate crystals Infrared spectroscopy Ql (Stone) N/A [facility] XR ANKLE RT MIN 3 VIEWSon XR [...] LAURY ZEPEDA Date: 2022-02-15 06:59 Normal [facility] COVID-19 Positive/NegativeOr dered By: Shun Machado on 02-13-2022 SARS-CoV-2 (COVID-19) N gene LU+probe Ql (Resp) Negative Negative [facility] Comment on above: Testing for SARS-CoV -2 by RT-PCR This test was developed and its performance characteristics determined by [employer] ([place]) and validated at the [facility]. This test has not been FDA cleared [...] claudication. COMPARISON: November 08, 2021 ACCESSION NUMBER(S): [id number] ORDERING CLINICIAN: KENTON LAWSON FINDINGS: Status post anterior and posterior fusion L3-L5 unchanged prior examination with disc space replacement and posterior pedicle screws. Alignment normal. Upper lumbar degenerative changes greatest at L2-3 again noted. IMPRESSION: Satisfactory and unchanged appearance status post L3-L5 fusion. Electronically signed by: JENI SNYDER MD Normal [facility] ([facility]3] Established Visit (Orthopaed ic Surgery)on 01-29-2022 Established [...] Xray BN Spine, Lumbosacral; 2 or 3 [id number] 10:34AKenton Zuleta Test NameResultFlagReference Xray Lumbar Spine [...] BANDAR SAENZ Date: 2022-01-29 21:07 Normal [facility] Activated partial thrombopla stin time (aPTT) in platelet poor plasma by coagulation aOrdered By: Shun Machado on 01-17-2022 aPTT Coag (PPP) [Time] 36.3 s 25.1-36.5 [facility] COVID-19 Positive/NegativeOr dered By: Shun Machado on 01-17-2022 SARS-CoV-2 (COVID-19) N gene LU+probe Ql (Resp) Negative Negative [facility] Comment on above: Testing for SARS-CoV -2 by RT-PCR This test was developed and its performance characteristics determined by [employer] ([place]) and validated at the [facility]. This test has not been FDA cleared [...] PT Coag (PPP) [Time] 11.9 s 9.0-12.9 [facility] Platelet poor plasma interna tional normalized ratio (INR) by coagulation assay (relatOrdered By: Shun Machado on 01-17-2022 INR Coag (PPP) [Relative time] 1.1 {INR} [facility] Comment on above: INR Therapeutic Rang e [...] BANDAR SAENZ Date: 2022-01-11 16:29 Normal [facility] CBC AUTO DIFFon 01-09-2022 BASO # 0.0 103/ul Normal 0.0-0.1 [facility] Comment on above: Performed By: #### C BC #### [facility] [address] [place] [address] Dr. Carolyn King Basophils/100 WBC (Bld) 0.4 % Normal 0.2-2.0 [facility] Comment on above: Performed By: #### C BC #### [facility] [address] [place] [address] Dr. Carolyn King EO # 0.0 103/ul Normal 0.0-0.7 [facility] Comment on above: Performed By: #### C BC #### [facility] [address] [place] [address] Dr. Carolyn King Eosinophils/100 WBC (Bld) 0.3 % Critically low 0.9-7.0 [facility] Comment on above: Performed By: #### C BC #### [facility] [address] [place] [address] Dr. Carolyn King Erythrocyte distribution width (RBC) [Ratio] 12.6 % Normal 11.0-15.0 [facility] Comment on above: Performed By: #### C BC #### [facility] [address] [place] [address] Dr. Carolyn King Hematocrit (Bld) [Volume fraction] 45.6 % Normal 42.0-54.0 [facility] Comment on above: Performed By: #### C BC #### [facility] [address] [place] [address] Dr. Carolyn King Hemoglobin (Bld) [Mass/Vol] 15.6 g/dL Normal 14.0-18.0 [facility] Comment on above: Performed By: #### C BC #### [facility] [address] [place] [address] Dr. Carolyn King IG # 0.02 10e3/ul Normal 0.00-0.03 [facility] Comment on above: Performed By: #### C BC #### [facility] [address] [place] [address] Dr. Carolyn King IG % 0.3 % Normal 0.0-0.5 [facility] Comment on above: Performed By: #### C BC #### [facility] [address] [place] [address] Dr. Carolyn King LYMPH # 0.8 103/ul Critically low 1.2-3.8 [facility] Comment on above: Performed By: #### C BC #### [facility] [address] [place] [address] Dr. Carolyn King Lymphocytes/100 WBC (Bld) 11.4 % Critically low 20.5-60.0 [facility] Comment on above: Performed By: #### C BC #### [facility] [address] [place] [address] Dr. Carolyn King MANUAL DIFF REQ NO Normal [facility] Comment on above: Performed By: #### C BC #### [facility] [address] [place] [address] Dr. Carolyn King MCH (RBC) [Entitic mass] 30.8 pg Normal 25.9-34.0 [facility] Comment on above: Performed By: #### C BC #### [facility] [address] [place] [address] Dr. Carolyn King MCHC (RBC) [Mass/Vol] 34.2 g/dL Normal 29.9-35.2 [facility] Comment on above: Performed By: #### C BC #### [facility] [address] [place] [address] Dr. Carolyn King MCV (RBC) [Entitic vol] 89.9 fL Normal 80.0-94.0 [facility] Comment on above: Performed By: #### C BC #### [facility] [address] [place] [address] Dr. Carolyn King MONO # 0.6 103/ul Normal 0.3-0.8 [facility] Comment on above: Performed By: #### C BC #### [facility] [address] [place] [address] Dr. Carolyn King Monocytes/100 WBC (Bld) 8.5 % Normal 1.7-12.0 [facility] Comment on above: Performed By: #### C BC #### [facility] [address] [place] [address] Dr. Carolyn King NEUT # 5.8 103/ul Normal 1.4-6.5 [facility] Comment on above: Performed By: #### C BC #### [facility] [address] [place] [address] Dr. Carolyn King Neutrophils/100 WBC (Bld) 79.1 % Critically high 43.0-75.0 [facility] Comment on above: Performed By: #### C BC #### [facility] [address] [place] [address] Dr. Carolyn King Platelet mean volume (Bld) [Entitic vol] 10.7 fL Normal 9.5-13.5 [facility] Comment on above: Performed By: #### C BC #### [facility] [address] [place] [address] Dr. Carolyn King PLT 235 103/ul Normal 150-450 [facility] Comment on above: Performed By: #### C BC #### [facility] [address] [place] [address] Dr. Carolyn King RBC 5.07 106/ul Normal 4.70-6.10 [facility] Comment on above: Performed By: #### C BC #### [facility] [address] [place] [address] Dr. Carolyn King WBC 7.4 103/ul Normal 4.0-11.0 [facility] Comment on above: Performed By: #### C BC #### [facility] [address] [place] [address] ABD/PELVIS WO CONon [...] LAURY ZEPEDA Date: 2022-01-09 13:38 Normal [facility] ER URINE PROFILEon 2 Bilirubin Ql (U) Negative Normal NEGATIVE [facility] Comment on above: Performed By: #### I NSULIN #### [facility] [address] [place] [address] Dr. Carolyn King Clarity (U) CLEAR Normal CLEAR [facility] Comment on above: Performed By: #### I NSULIN #### [facility] [address] [address] [address] Carolyn King Color (U) LT. YELLOW Normal YELLOW [facility] Comment on above: Performed By: #### I NSULIN #### [facility] [address] [address] [address] Carolyn BUNN A micrscopic examina tion will be performed if indicated. Normal [facility] Comment on above: Performed By: #### I NSULIN #### [facility] [address] [address] [address] Carolyn King Glucose Ql (U) Negative Normal NEGATIVE [facility] Comment on above: Performed By: #### I NSULIN #### [facility] [address] [place] [address] Dr. Carolyn King Hemoglobin Ql (U) MODERATE Abnormal NEGATIVE [facility] Comment on above: Performed By: #### I NSULIN #### [facility] [address] [place] [address] Dr. Carolyn King Ketones Ql (U) Negative Normal NEGATIVE [facility] Comment on above: Performed By: #### I NSULIN #### [facility] [address] [address] [address] Carolyn King LEUKOCYTES Negative Normal NEGATIVE [facility] Comment on above: Performed By: #### I NSULIN #### [facility] [address] [place] [address] Dr. Carolyn King Nitrite Ql (U) Negative Normal NEGATIVE [facility] Comment on above: Performed By: #### I NSULIN #### [facility] [address] [place] [address] Dr. Carolyn King pH (U) 6.0 [pH] Normal 5-9 [facility] Comment on above: Performed By: #### I NSULIN #### [facility] [address] [place] [address] Dr. Carolyn King SPEC GRAVITY 1.010 Normal 1.005-<=1. 025 [facility] Comment on above: Performed By: #### I NSULIN #### [facility] [address] [place] [address] Dr. Carolyn King UA PROTEIN Negative Normal NEGATIVE/ TRACE [facility] Comment on above: Performed By: #### I NSULIN #### [facility] [address] [place] [address] Dr. Carolyn King UR MICRO IND INDICATED Normal [facility] Comment on above: Performed By: #### I NSULIN #### [facility] [address] [place] [address] Dr. Carolyn King Urobilinogen Qn (U) 0.2 {Keren'U}/dL Normal 0.2 - 1. 0 [facility] Comment on above: Performed By: #### I NSULIN #### [facility] [address] [place] [address] Dr. Carolyn King LIPASEon 01-09-2022 Lipase [Catalytic activity/Vol] 98.0 U/L Normal 73.0-393.0 [facility] Comment on above: Performed By: #### I NSULIN #### [facility] [address] [place] [address] Dr. Carolyn King PROF 14(COMP METB)on 022 Albumin [Mass/Vol] 4.0 g/dL Normal 3.4-5.0 [facility] Comment on above: Performed By: #### I NSULIN #### [facility] [address] [place] [address] Dr. Carolyn King Albumin/Globulin [Mass ratio] 1.1 {ratio} Normal [facility] Comment on above: Performed By: #### I NSULIN #### [facility] [address] [place] [address] Dr. Carolyn King ALP [Catalytic activity/Vol] 112 U/L Normal 46-116 [facility] Comment on above: Performed By: #### I NSULIN #### [facility] [address] [place] [address] Dr. Carolyn King ALT [Catalytic activity/Vol] 27 U/L Normal 16-63 [facility] Comment on above: Performed By: #### I NSULIN #### [facility] [address] [place] [address] Dr. Carolyn King Anion gap [Moles/Vol] 14.9 mmol/L Normal Th [facility] Comment on above: Performed By: #### I NSULIN #### [facility] [address] [place] [address] Dr. Carolyn King AST [Catalytic activity/Vol] 22 U/L Normal 15-37 [facility] Comment on above: Performed By: #### I NSULIN #### [facility] [address] [place] [address] Dr. Carolyn King Bilirubin [Mass/Vol] 0.5 mg/dL Normal 0.2-1.0 [facility] Comment on above: Performed By: #### I NSULIN #### [facility] [address] [place] [address] Dr. Carolyn King Calcium [Mass/Vol] 9.1 mg/dL Normal 8.5-10.1 [facility] Comment on above: Performed By: #### I NSULIN #### [facility] [address] [place] [address] Dr. Carolyn King Chloride [Moles/Vol] 103 mmol/L Normal 98-107 [facility] Comment on above: Performed By: #### I NSULIN #### [facility] [address] [place] [address] Dr. Carolyn King CO2 [Moles/Vol] 26.0 mmol/L Normal 21.0-32.0 [facility] Comment on above: Performed By: #### I NSULIN #### [facility] [address] [place] [address] Dr. Carolyn King Creatinine [Mass/Vol] 1.09 mg/dL Normal 0.70-1.30 [facility] Comment on above: Performed By: #### I NSULIN #### [facility] [address] [place] [address] Dr. Carolyn King EGFR-AF TUVALUAN >60 Normal >=60 [facility] Comment on above: Performed By: #### I NSULIN #### [facility] [address] [place] [address] Dr. Carolyn King EGFR-NON AF TUVALUAN >60 Normal >=60 [facility] Comment on above: Performed By: #### I NSULIN #### [facility] [address] [address] [address] Carolyn King Globulin (S) [Mass/Vol] 3.8 g/dL Normal [facility] Comment on above: Performed By: #### I NSULIN #### [facility] [address] [address] [address] Carolyn King Glucose [Mass/Vol] 97 mg/dL Normal 74-106 [facility] Comment on above: Performed By: #### I NSULIN #### [facility] [address] [address] [address] Carolyn King Potassium [Moles/Vol] 3.9 mmol/L Normal 3.5-5.1 [facility] Comment on above: Performed By: #### I NSULIN #### [facility] [address] [place] [address] Dr. Carolyn King Protein [Mass/Vol] 7.8 g/dL Normal 6.4-8.2 [facility] Comment on above: Performed By: #### I NSULIN #### [facility] [address] [place] [address] Dr. Carolyn King Sodium [Moles/Vol] 140 mmol/L Normal 136-145 [facility] Comment on above: Performed By: #### I NSULIN #### [facility] [address] [place] [address] Dr. Carolyn King Urea nitrogen [Mass/Vol] 16.0 mg/dL Normal 7.0-18.0 [facility] Comment on above: Performed By: #### I NSULIN #### [facility] [address] [address] [address] Carolyn King Urea nitrogen/Creatinine [Mass ratio] 14.7 mg/mg Normal [facility] Comment on above: Performed By: #### I NSULIN #### [facility] [address] [place] [address] Dr. Carolyn King URINE MICROSCOPIC ONLYon BACTERIA NONE SEEN Normal NONE SEEN [facility] Comment on above: Performed By: #### I NSULIN #### [facility] [address] [place] [address] Dr. Carolyn King Bacteria identified Cx Nom (U) NOT INDICATED Normal [facility] Comment on above: Performed By: #### I NSULIN #### [facility] [address] [place] [address] Dr. Carolyn King CAST NONE SEEN Normal NONE SEEN [facility] Comment on above: Performed By: #### I NSULIN #### [facility] [address] [place] [address] Dr. Carolyn King Crystals LM Nom (Urine sed) NONE SEEN Normal NONE SEEN [facility] Comment on above: Performed By: #### I NSULIN #### [facility] [address] [place] [address] Dr. Carolyn King Epithelial cells LM Ql (Urine sed) NONE SEEN Normal NONE SEEN /RARE [facility] Comment on above: Performed By: #### I NSULIN #### [facility] [address] [place] [address] Dr. Carolyn King MUCOUS NONE SEEN Normal NONE SEEN [facility] Comment on above: Performed By: #### I NSULIN #### [facility] [address] [place] [address] Dr. Carolyn King RBC 2-5 Abnormal 0-2 [facility] Comment on above: Performed By: #### I NSULIN #### [facility] [address] [place] [address] Dr. Carolyn King WBC 0-2 Abnormal NONE SEEN [facility] Comment on above: Performed By: #### I NSULIN #### [facility] [address] [place] [address] Dr. Carolyn King US SINGLE QUAD RT [...] by: BANDAR QUEZADA Date: 2022-01-05 10:15 Normal [facility] NM HEPATOBILIARY SCAN W EFon 12-27-2021 NE HEPATOBILIARY SCAN W EF HISTORY: Right upper [...] LAURY SNYDER Date: 2021-12-27 12:16 Normal [facility] CT ABD/PELV W CONon 12-12-19 CT [...] by: LAURY ZEPEDA Date: 2021-12-11 07:30 Normal [facility] CREATININEon 12-09-2021 Creatinine [Mass/Vol] 0.98 mg/dL Normal 0.70-1.30 [facility] Comment on above: Performed By: #### I NSULIN #### [facility] [address] [address] [address] Carolyn King EGFR-AF TUVALUAN >60 Normal >=60 [facility] Comment on above: Performed By: #### I NSULIN #### [facility] [address] [address] [address] Carolyn King EGFR-NON AF TUVALUAN >60 Normal >=60 [facility] Comment on above: Performed By: #### I NSULIN #### [facility] [address] [address] [address] Carolyn King BN SPINE, LUMBOSACRAL; 2 OR 3 VIEWSon 11-08-2021 BN SPINE, LUMBOSACRAL; 2 OR 3 VIEWS Patient Name: JAY CARR STUDY: Lumbar spine dated 11/08/2021. INDICATION: AP/LAT M54.50: Lumbar back pain M48.062: Lumbar stenosis with neurogenic claudication COMPARISON: None. ACCESSION NUMBER(S): [id number] ORDERING CLINICIAN: KENTON LAWSON TECHNIQUE: AP and [...] above. Electronically signed by: BATSHEVA VIDAL MD [facility] Post Op (Orthopaedic Surgery )on 11-08-2021 [...] Work Phone: [employer] 09-29-2021 HCT Canceled Normal [facility]3] Comment on above: Order Comment: TEST CBC WAS CANCELLED, 09/29/2021 08:10 NO SPECIMEN RECEIVED IN LAB. Performed By: #### C BC ####[id number] [place] [address] HGB Canceled Normal [facility]3] Comment on above: Order Comment: TEST CBC WAS CANCELLED, 09/29/2021 08:10 NO SPECIMEN RECEIVED IN LAB. Performed By: #### C BC ####[id number] [place] [address] MCHC Canceled Normal [facility]3] Comment on above: Order Comment: TEST CBC WAS CANCELLED, 09/29/2021 08:10 NO SPECIMEN RECEIVED IN LAB. Performed By: #### C BC ####[id number] [place] [address] MCV Canceled Normal [facility]3] Comment on above: Order Comment: TEST CBC WAS CANCELLED, 09/29/2021 08:10 NO SPECIMEN RECEIVED IN LAB. Performed By: #### C BC ####[id number] [place] [address] NUCLEATED RBC Canceled Normal [facility] Comment on above: Order Comment: TEST CBC WAS CANCELLED, 09/29/2021 08:10 NO SPECIMEN RECEIVED IN LAB. Performed By: #### C BC ####[id number] [place] [address] PLT Canceled Normal [facility]3] Comment on above: Order Comment: TEST CBC WAS CANCELLED, 09/29/2021 08:10 NO SPECIMEN RECEIVED IN LAB. Performed By: #### C BC ####[id number] [place] [address] RBC Canceled Normal [facility]3] Comment on above: Order Comment: TEST CBC WAS CANCELLED, 09/29/2021 08:10 NO SPECIMEN RECEIVED IN LAB. Performed By: #### C BC ####[id number] [place] [address] RDW-CV Canceled Normal [facility]3] Comment on above: Order Comment: TEST CBC WAS CANCELLED, 09/29/2021 08:10 NO SPECIMEN RECEIVED IN LAB. Performed By: #### C BC ####[id number] [place] [address] WBC Canceled Normal [facility]3] Comment on above: Order Comment: TEST CBC WAS CANCELLED, 09/29/2021 08:10 NO SPECIMEN RECEIVED IN LAB. Performed By: #### C BC ####[id number] [place] [address] BASIC METABOLIC PANELon ANION GAP Canceled Normal [facility]3] Comment on above: Order Comment: TEST BASIC METABOLIC PANEL WAS CANCELLED, 09/28/2021 04:56 Performed By: #### B MP ####[id number] [place] [address] BICARBONATE Canceled Normal [facility]3] Comment on above: Order Comment: TEST BASIC METABOLIC PANEL WAS CANCELLED, 09/28/2021 04:56 Performed By: #### B MP ####[id number] [place] [address] CALCIUM Canceled Normal [facility]3] Comment on above: Order Comment: TEST BASIC METABOLIC PANEL WAS CANCELLED, 09/28/2021 04:56 Performed By: #### B MP ####[id number] [place] [address] CHLORIDE Canceled Normal [facility]3] Comment on above: Order Comment: TEST BASIC METABOLIC PANEL WAS CANCELLED, 09/28/2021 04:56 Performed By: #### B MP ####[id number] [place] [address] CREATININE Canceled Normal [facility]3] Comment on above: Order Comment: TEST BASIC METABOLIC PANEL WAS CANCELLED, 09/28/2021 04:56 Performed By: #### B MP ####[id number] [place] [address] eGFR FEMALE Canceled Normal [facility]3] Comment on above: Order Comment: TEST BASIC METABOLIC PANEL WAS CANCELLED, 09/28/2021 04:56 Result Comment: CALC ULATIONS OF ESTIMATED GFR ARE PERFORMED USING THE 2020 CKD-EPI STUDY REFIT EQUATION WITHOUT THE RACE VARIABLE FOR THE IDMS-TRACEABLE CREATININE METHODS. https://jasn.asnjournals.org/content/early/ASN.21260 49324 Performed By: #### B MP ####[id number] [place] [address] eGFR MALE Canceled Normal [facility]3] Comment on above: Order Comment: TEST BASIC METABOLIC PANEL WAS CANCELLED, 09/28/2021 04:56 Result Comment: CALC ULATIONS OF ESTIMATED GFR ARE PERFORMED USING THE 2020 CKD-EPI STUDY REFIT EQUATION WITHOUT THE RACE VARIABLE FOR THE IDMS-TRACEABLE CREATININE METHODS. https://jasn.asnjournals.org/content//ASN.83119 33982 Performed By: #### B MP ####[id number] [place] [address] GLUCOSE Canceled Normal [facility]3] Comment on above: Order Comment: TEST BASIC METABOLIC PANEL WAS CANCELLED, 09/28/2021 04:56 Performed By: #### B MP ####[id number] [place] [address] POTASSIUM Canceled Normal [facility]3] Comment on above: Order Comment: TEST BASIC METABOLIC PANEL WAS CANCELLED, 09/28/2021 04:56 Performed By: #### B MP ####[id number] [place] [address] SODIUM Canceled Normal [facility]3] Comment on above: Order Comment: TEST BASIC METABOLIC PANEL WAS CANCELLED, 09/28/2021 04:56 Performed By: #### B MP ####[id number] [place] [address] UREA NITROGEN Canceled Normal [facility] Comment on above: Order Comment: TEST BASIC METABOLIC PANEL WAS CANCELLED, 09/28/2021 04:56 Performed By: #### B MP ####[id number] [place] [address] BASIC METABOLIC PANELon 04-0 Anion gap [Moles/Vol] 16 mmol/L Normal 10 - 20 [facility]3] Comment on above: Performed By: #### B MP #### [facility] [address] [place] [address] Calcium [Mass/Vol] 9.0 mg/dL Normal 8.6 - 10.6 [facility] [place] Comment on above: Performed By: #### B MP #### [facility] [address] [place] [address] Chloride [Moles/Vol] 103 mmol/L Normal 98 - 107 [facility] Comment on above: Performed By: #### B MP #### [facility] [address] [place] [address] Creatinine [Mass/Vol] 0.83 mg/dL Normal 0.50 - 1.30 [facility]3] Comment on above: Performed By: #### B MP #### [facility] [address] [place] [address] eGFR MALE >90 Normal >90 [facility]3] Comment on above: Result Comment: CALC ULATIONS OF ESTIMATED GFR ARE PERFORMED USING THE 2020 CKD-EPI STUDY REFIT EQUATION WITHOUT THE RACE VARIABLE FOR THE IDMS-TRACEABLE CREATININE METHODS. https://jasn.asnjournals.org/content//ASN.10519 04860 Performed By: #### B MP #### [facility] [address] [place] [address] Glucose [Mass/Vol] 141 mg/dL High 74 - 99 [facility] [place] Comment on above: Performed By: #### B MP #### [facility] [address] [place] [address] HCO3 (Bld) [Moles/Vol] 24 mmol/L Normal 21 - 32 [facility]3] Comment on above: Performed By: #### B MP #### [facility] [address] [place] [address] Potassium [Moles/Vol] 4.4 mmol/L Normal 3.5 - 5.3 [facility]3] Comment on above: Performed By: #### B MP #### [facility] [address] [place] [address] Sodium [Moles/Vol] 139 mmol/L Normal 136 - 145 [facility] [place] Comment on above: Performed By: #### B MP #### [facility] [address] [place] [address] Urea nitrogen [Mass/Vol] 13 mg/dL Normal 6 - 23 [facility]3] Comment on above: Performed By: #### B MP #### [facility] [address] [place] [address] CBCon 09-27-2021 HCT Canceled Normal [facility]3] Comment on above: Order Comment: TEST URINALYSIS WAS CANCELLED, 09/19/2021 12:02 DUPLICATE ORDER. Performed By: #### U A #### [facility] [address] [place] [address] HGB Canceled Normal [facility]3] Comment on above: Order Comment: TEST URINALYSIS WAS CANCELLED, 09/19/2021 12:02 DUPLICATE ORDER. Performed By: #### U A #### [facility] [address] [place] [address] MCHC Canceled Normal [facility]3] Comment on above: Order Comment: TEST URINALYSIS WAS CANCELLED, 09/19/2021 12:02 DUPLICATE ORDER. Performed By: #### U A #### [facility] [address] [place] [address] MCV Canceled Normal [facility]3] Comment on above: Order Comment: TEST URINALYSIS WAS CANCELLED, 09/19/2021 12:02 DUPLICATE ORDER. Performed By: #### U A #### [facility] [address] [place] [address] NUCLEATED RBC Canceled Normal [facility] Comment on above: Order Comment: TEST URINALYSIS WAS CANCELLED, 09/19/2021 12:02 DUPLICATE ORDER. Performed By: #### U A #### [facility] [address] [place] [address] PLT Canceled Normal [facility]3] Comment on above: Order Comment: TEST URINALYSIS WAS CANCELLED, 09/19/2021 12:02 DUPLICATE ORDER. Performed By: #### U A #### [facility] [address] [place] [address] RBC Canceled Normal [facility]3] Comment on above: Order Comment: TEST URINALYSIS WAS CANCELLED, 09/19/2021 12:02 DUPLICATE ORDER. Performed By: #### U A #### [facility] [address] [place] [address] RDW-CV Canceled Normal [facility]3] Comment on above: Order Comment: TEST URINALYSIS WAS CANCELLED, 09/19/2021 12:02 DUPLICATE ORDER. Performed By: #### U A #### [facility] [address] [place] [address] WBC Canceled Normal [facility]3] Comment on above: Order Comment: TEST URINALYSIS WAS CANCELLED, 09/19/2021 12:02 DUPLICATE ORDER. Performed By: #### U A #### [facility] [address] [place] [address] Erythrocyte distribution width (RBC) [Ratio] 13.1 % Normal 11.5 - 14.5 [facility]3] Comment on above: Performed By: #### U A #### [facility] [address] [place] [address] Hematocrit (Bld) [Volume fraction] 41.3 % Normal 41.0 - 52.0 [facility]3] Comment on above: Performed By: #### U A #### [facility] [address] [place] [address] Hemoglobin (Bld) [Mass/Vol] 14.1 g/dL Normal 13.5 - 17.5 [facility]3] Comment on above: Performed By: #### U A #### [facility] [address] [place] [address] MCHC (RBC) [Mass/Vol] 34.1 g/dL Normal 32.0 - 36.0 [facility]3] Comment on above: Performed By: #### U A #### [facility] [address] [place] [address] MCV (RBC) [Entitic vol] 93 fL Normal 80 - 100 [facility]3] Comment on above: Performed By: #### U A #### [facility] [address] [place] [address] NUCLEATED RBC 0.0 /100 WBC Normal 0.0-0.0 [facility] Comment on above: Performed By: #### U A #### [facility] [address] [place] [address] Platelets (Bld) [#/Vol] 217 10*3/uL Normal 150 - 450 [facility]3] Comment on above: Performed By: #### U A #### [facility] [address] [place] [address] RBC 4.42 x10E12/L Low 4.50 - 5.90 [facility]3] Comment on above: Performed By: #### U A #### [facility] [address] [place] [address] WBC (Bld) [#/Vol] 13.6 10*3/uL High 4.4 - 11.3 [facility] Comment on above: Performed By: #### U A #### [facility] [address] [place] [address] Daily Progress Note-Orthopae kaison 09-27-2021 Daily Progress Note-Orthopaedics Service: Orthopaedics Subjective Data: JAY CARR is a 61 year old Male who is Hospital Day # 2 and POD #1 for 1. XLIF L3/4, 4/5;2. Navigated percutaneous PSIF L3-5. Patient resting comfortably in bed. Pain well controlled. Denies CP, SOB, F/C, N/V. No new N/T. Objective Data: Objective Information: T PRBPMAPSpO2 [id number]/7598% Date/Time09/27 5: 5:394 5:394 5:394 5:39 Range(36.5C - 37C ) (77 [...] Recent Arterial Blood Gas Results 09/26/2021 12:37 [id number] pH7.37 [id number] Base Excess0.8null Assessment and Plan: Code Status: Code StatusFull Code Assessment: 61 y/o male s/p L3/4-4/5 XLIF, L3-5 perc PSIF on 09/26/[address] Richardson, doing well. Plan: - WB status: WBAT, no excessive bending/twisting - DVT ppx: SCDs + Teds at all times while in bed, ambulation - Diet: Clear liquid diet, ADAT to regular - PATHOLOGY TECHNICIAN => PO pain medication per pain protocol [...] Timothy Steinberg M.D. Orthopaedic Surgery, PGY-2 Pager: [phone] Orthopaedic Spine Team Brannon Steinberg, PGY-2 07001 - 1st call Orquidea Akbar, PGY-4 [phone] - 2nd call Available via Somo After 5pm-7am, weekends, holidays please page [phone] for utilization management manager resident for urgent questions/concerns. Attestation: Note Completion: [...] the note. I personally evaluated the patient [id number] Electronic Signatures: Sal Richardson) (Signed 29-Sep-2021 11:37) Authored: Note Completion Co-Signer: Service, Subjective Data, Objective Data, Assessment and Plan, Note Completion Timothy Steinberg (Resident)) (Signed 27-Sep-2021 06:49) Authored: Service, Subjective Data, Objective Data, Assessment and Plan, Note Completion Last Updated: 29-Sep-2021 11:37 by Sal Richardson) [facility] Order Reconciliationon 09-27 Order Reconciliation Page [...] unarousable, and respiratory rate lessClinician Notes: HOLD PATHOLOGY TECHNICIAN Infusion and notify H.O. immediately 26-Sep-2021 15:16 [...] at Discharge: (more content not included)... Normal [facility]3] PT Evaluation [id number] t - co-tx c/ OT for maximized saon 09-27-2021 PT Evaluation [id number] - co-tx c/ OT for maximized sa Rehab: Info: Mode of Treatmentco-treatment; physical therapy; co-tx c/ OT for maximized safety and mobility Time IN10:00 Time OUT10:27 Total Treatment [id number] Patient in ... at end of sessionchair; alarm on Communicated with ... at end of sessionbedside nurse Patient Effortexcellent Symptoms Noted During/After Treatmentnone Patient Profile Reviewedyes Onset of Illness/Injury or Date of [id number] Reason for ReferralXLIF L3/4, 4/5;2. Navigated percutaneous [...] Mobility/Tone: Bed Mobility Assessment/Interventions supine to sit Xvocri-hu-Fsb [place] (Bed Mobility)standby assist; 1 person assist Assistive Device (Bed Mobility)bed rails Comment, Bed MobilityPt. educated on log roll Transfer Assessment/Interventions sit to stand transfer; stand to sit transfer; bed to chair transfer Bed-Chair [place] (Transfers)1 person assist; standby assist; verbal cues Sit-Stand [place] (Transfers)standby assist; 1 person assist Sit-Stand Assistive Device (Transfers)no AD Stand-Sit [place] (Transfers)standby assist; 1 person assist Stand-Sit Assistive [...] Motor: Sitting, Static (Balance)SBA Sitting, Dynamic (Balance)SBA Jql-ws-Rpzpq (Balance)SBA Standing, Static (Balance)SBA Standing, Dynamic (Balance)SBA [...] goals Thera (more content not included)... Normal [facility]3] ARTERIAL FULL PANELon 2021 Anion gap [Moles/Vol] 11 mmol/L Normal - [facility]3] Comment on above: Performed By: #### A FPA4 #### [facility] [address] [place] [address] BASE EXCESS-BLOOD 0.8 mmol/L Normal -2.0 - 3.0 [facility] Comment on above: Performed By: #### A FPA4 #### [facility] [address] [place] [address] BICARB, CALCULATED 26.6 mmol/L High 22.0 - 26.0 [facility]3] Comment on above: Performed By: #### A FPA4 #### [facility] [address] [place] [address] CALCIUM,IONIZED 1.15 mmol/L Normal 1.10 - 1.33 [facility]3] Comment on above: Performed By: #### A FPA4 #### [facility] [address] [place] [address] Chloride [Moles/Vol] 102 mmol/L Normal 98 - 107 [facility] Comment on above: Performed By: #### A FPA4 #### [facility] [address] [place] [address] Glucose [Mass/Vol] 114 mg/dL High 74 - 99 [facility] [place] Comment on above: Performed By: #### A FPA4 #### [facility] [address] [place] [address] Hematocrit (Bld) [Volume fraction] 42.0 % Normal 41.0 - 52.0 [facility]3] Comment on above: Performed By: #### A FPA4 #### [facility] [address] [place] [address] Hemoglobin (Bld) [Mass/Vol] 14.1 g/dL Normal 13.5 - 17.5 [facility]3] Comment on above: Performed By: #### A FPA4 #### [facility] [address] [place] [address] Lactate [Moles/Vol] 1.3 mmol/L Normal 0.4 - 2.0 [facility] Comment on above: Performed By: #### A FPA4 #### [facility] [address] [place] [address] OXY HGB 97.5 % Normal 94.0 - 98.0 [facility]3] Comment on above: Performed By: #### A FPA4 #### [facility] [address] [place] [address] Oxygen (Bld) [Partial pressure] 160 mm[Hg] High 85 - 95 [facility]3] Comment on above: Performed By: #### A FPA4 #### [facility] [address] [place] [address] PATIENT TEMPERATURE 37.0 degrees C Normal [facility] Comment on above: Result Comment: NOTE : PATIENT RESULTS ARE NOT CORRECTED FOR TEMPERATURE. Performed By: #### A FPA4 #### [facility] [address] [place] [address] PCO2 46 mmHg High 38 - 42 [facility]3] Comment on above: Performed By: #### A FPA4 #### [facility] [address] [place] [address] pH (Bld) 7.37 [pH] Low 7.38 - 7.42 [facility]3] Comment on above: Performed By: #### A FPA4 #### [facility] [address] [place] [address] Potassium [Moles/Vol] 4.8 mmol/L Normal 3.5 - 5.3 [facility] Comment on above: Performed By: #### A FPA4 #### [facility] [address] [place] [address] SO2 100 % Normal 94 - 100 [facility]3] Comment on above: Performed By: #### A FPA4 #### [facility] [address] [place] [address] Sodium [Moles/Vol] 135 mmol/L Low 136 - 145 [facility] [place] Comment on above: Performed By: #### A FPA4 #### [facility] [address] [place] [address] Admission Risk Screen - Adul ton 09-26-2021 [...] AlertFor Ebola-like Symptoms: Isolate Patient and Notify Provider/Certified Nursing Assistant For Contact: Notify Provider/Certified Nursing Assistant Advance Directive: Advance Directive/DNRno Advance Directive Information Givenpatient/family declined Albert Fall Screen: History of falling (immediate or previous)no (0) Secondary Diagnosisyes (15) Intravenous Therapy/ Heparin/Saline Lockyes (20) Gait/Transferringweak (10) Ambulatory Aidsnone/bedrest/nurse assist (0) Mental Statusoriented to own ability (0) Score: Low risk (<25). Moderate risk (25-44). High risk (>44).45 Albetr InterventionsHIGH INTERVENTIONS *Low and Moderate Interventions Plus: [...] Communicatenone Learning Preferencesaudio Cultural Considerationsnone Developmental Considerationsnone Druze Considerationsnone Learning Assessment (Other Learner): Other learner availableno Depression Screen: During the past month, have you often been bothered by feeling down, depressed or hopelessno During the past month, have you often had little interest or pleasure in doing thingsno Have you had any thoughts of harming anyone elseno [place]ham Suicide: Risk Screen Not Applicable/Able to Answerable to be screened In the Past Month: Have you wished you were or could go to sleep and not wake upno(1) In the Past Month: Have you had any actual thoughts of killing yourself no(1) Lifetime: Have you ever done, started to do, or prepared to do anything to end your lifeno(1) [place] Suicide Risknegative Adult Nutrition Screen: Have you [...] Spiritual Screen: Are there any cultural, spiritual, tenriism practices/values/needs that are important for us to knowno CAGE: Is this an injured patient at a Trauma Center ([facility]/[place] /[place]): no Vaccinations: Vaccination - Influenza Vaccination Screen: Is it flu season (between and September 21)Yes Screening for identified contraindications to influenza vaccinationpatient already received vaccine this season Vaccination - Pneumonia Vaccination Screen: Patient has received a previous pneumonia vaccine:no/unknown... Immunocompetent persons with underlying chronic conditions or r (more content not included)... Normal [facility]3] Daily Progress Note-Orthopae dicson 09-26-2021 Daily Progress [...] Recent Arterial Blood Gas Results 09/26/2021 12:37 [id number] pH7.37 [id number] Base Excess0.8null Assessment and Plan: Code Status: Code StatusFull Code Assessment: 61 y/o male s/p L3/4-4/5 XLIF, L3-5 perc PSIF on 09/26/[address] Richardson, doing well. Plan: - WB status: WBAT, no excessive bending/twisting - DVT ppx: SCDs + Teds at all times while in bed, ambulation - Diet: Clear liquid diet, ADAT to regular - PATHOLOGY TECHNICIAN => PO pain medication per pain protocol - 24 hr perioperative abx: clinda x 4 doses - FEN: Continue NS at 100cc/hr; HLIV with good PO intake - Bowel Regimen: Colace, Dulcolax, Senna - PT/OT consult - Continue home medications - Discontinue goodrich catheter POD #1 - Decadron 4mg q6hr x4 doses Dispo: to VERONICA Steinberg M.D. Orthopaedic Surgery, PGY-2 Pager: [phone] Orthopaedic Spine Team Brannon Steinberg, PGY-2 [phone] - 1st call Orquidea Akbar PGY-4 [phone] - 2nd call Available via Julep Halo After 5pm-7am, weekends, holidays please page [phone] for utilization management manager resident for urgent questions/concerns. Attestation: Note Completion: [...] the note. I personally evaluated the patient [id number] Electronic Signatures: Sal Richardson) (Signed 29-Sep-2021 11:38) Authored: Note Completion Co-Signer: Service, Subjective Data, Objective Data, Assessment and Plan, Note Completion Timothy Steinberg (Resident)) (Signed 26-Sep-2021 15:36) Authored: Service, Subjective Data, Objective Data, Assessment and Plan, Note Completion Last Updated: 29-Sep-2021 11:38 by Sal Richardson) [facility] Discharge Planning Qyje8ks 0 4-2 Discharge Planning Note2 Discharge Planning: Planned Dispositionhome Anticipated Discharge [id number] Discharge Planning 09/27/21 1335 Transitional Care Coordination Progress Note: TCC verified demo is correct. lives at home with . pcp audrey armstrong. received covid vaccine x2 and booster x1. feels safe to return home today Patient discussed during interdisciplinary rounds. Team members present: MD/MARBLE MACHINE OPERATOR, TCC, Plan per Medical/Surgical team: patient goodrich out. call out operator changed to oral with pain control. MR for dc after working with PT OT today Status: inpatient Payor source: commercial Discharge disposition: home no needs per PT OT eval Potential Barriers: ADOD: today Calli Jones RN TCC 09/27/21 Patient discharged home with . Heather Foster RN Assessment: Discharge Planning Assessment [id number] Discharge Planning Assessment Completed bycalli jones RN TCC Primary Contact Name and Numberwife gus- [phone] Prior Level of FunctioningNA Lives Withspouse(1) Living Arrangementshouse(1) Stated Reason for Admissionback and hip pain(1) Arrived From[place] (1) PCPAudrey Armstrong [facility] [facility] Falls/ Injury/ Need Assist with AmbulationNA DME Supplier Name/NumberNA Home Care Agency/Support ServicesNA Diabetic/Supplies NeededNA Hemodialysis ScheduleNA Resource/Environmental Concernsnone(1) Anticipated Transition Toterral(1) Services Anticipated at Transitionnon(1) Readmission Within the [...] (diet, activity, pt instructions)yes Discharge Documentation: Discharge/Transfer Date/[id number]-[id number]-3381 17:00 Discharged Accompanied Byspouse Discharge Modewheelchair Transportation Methodprivate car Code StatusCode Status order at time of discharge: Full Code [place] DNR Form Sent with Patient and/or Familyn/a Valuables/Medications/Be longings Returnedyes [facility] Electronic Signatures: HEDY SHEPPARD (RN) (Signed 26-Sep-2021 21:59) Authored: Discharge Planning, Assessment, Discharge Documentation Heather Foster (RN) (Signed 27-Sep-2021 17:12) Authored: Discharge Planning, Nursing Checklist, Discharge Documentation Calli JonesRN) (Signed 27-Sep-2021 13:35) Authored: Discharge Planning, Assessment Last Updated: 27-Sep-2021 17:12 by Heather Foster (RN) References: 1. Data Referenced From Patient Profile - Adult v2 26-Sep-2021 21:07 Normal [facility]3] Discharge [id number] Discharge Profile2 Discharge Orders: Anticipated Discharge Date: Anticipated Discharge [id number] Problem List: Additional Dx: Lumbar radicular pain: Catalog Name: Radiculopathy, lumbar region Significant Events: right knee replacement: Past Surgical History biopsy on back: Past Surgical History left foot: Past Surgical History right foot: Past Surgical History covid in April 2021: Past Medical History lupus: Past Medical History GERD: Past Medical History HTN: Past Medical History Hospital Providers: Provider RoleProvider Name BrittneyArturo AudreySal Christy DNAR: Code Status at Discharge: [...] creams, or tub soaks Other InstructionsPLEASE HAVE ANTOINO REMOVED IN 3 WKS. AT [facility] [address] [facility] 5TH FLOOR ON 10/18/2021 AT 0930 WITH [facility]. REHAB FACILITIES OR HOME CARE MAY REMOVE ANTONIO OR SUTURES. Wound Care 2: Wound SiteBACK (Lumbar Spine) Wound Typesurgical incision Change Dressingdaily Cleanse Withsoap and water Cover Withabdominal dressing Tape Withpaper tape Instructionsno lotions, creams, or tub soaks Other InstructionsPLEASE HAVE ANTONIO REMOVED IN 3 WKS. AT [facility] [address] [facility] 5TH FLOOR ON 10/18/2021 AT 0930 [...] floor. Patient was initially started on dilaudid PATHOLOGY TECHNICIAN x24 hours and then transitioned to an [...] Call to Schedule in6 weeks, PLEASE CALL [phone] TO SCHEDULE YOUR AMBER (more content not included)... Normal [facility]3] [facility] PREOPERATIVE DIAGNOSIS: Spinal stenosis and spondylolisthesis L3-4 and L4-5 in a patient with unrelenting claudication and radiculopathy. POSTOPERATIVE DIAGNOSIS: Spinal stenosis and spondylolisthesis L3-4 and L4-5 in a patient with unrelenting claudication and radiculopathy. OPERATION/PROCEDURE: Anterior lumbar interbody fusion by extreme lateral approach at L3-4 and L4-5 with use of interbody cage device x2. SURGEON: Sal Richardson MD. THERMODYNAMICS ENGINEER(S): behavioral assistant: Cb Casanova PA-C. Second assistant city attorney: Brannon Steinberg, second resident. ANESTHESIA: ESTIMATED BLOOD [...] Deep layers were repaired using 0 Vicryl vssjnv-ah-pzyms sutures, deep dermal layer was repaired using 2-0 Vicryl sutures, and the skin was repaired using antonio. Dry sterile dressing was ap (more content not included)... Normal [facility]3] Operative Reports - [facility] PREOPERATIVE DIAGNOSIS: POSTOPERATIVE DIAGNOSIS: OPERATION/PROCEDURE: [...] Deep layers were repaired using 0 Vicryl rvalry-la-gnimx sutures, deep dermal layer was repaired using 2-0 Vicryl sutures, and the skin was repaired using antonoi. Dry sterile dressing was applied. The patient was brought to the recovery room, extubated, in stable condition. There were no complications encountered during the entirety of this case. I was present and scrubbed in during the entirety of this case. All spinal cord monitoring signals were stable throughout the entirety of this case during instrumentation and fusion. SURGEON: Sal Richardson MD. THERMODYNAMICS ENGINEER(S): ANESTHESIA: This is part 2 of a two-staged procedure. Part 1 was dictated in dictation #[id number]. Refer to dictation #[id number] for all details regarding the first part of the surgery. Sal Richardson MD EST EST DICTATION NUMBER: [id number] INTERNAL JOB NUMBER: [id number] CC: Sal Richardson MD, Electronic Signatures: Sal Richardson) (Signed on 03-Oct-2021 12:03) Authored Unsigned, Draft (SYS GENERATED) (Entered on 30-Sep-2021 07:37) Entered Last Updated: 03-Oct-2021 12:03 by Sal Richardson) [facility] Order Reconciliationon 09-26 Order Reconciliation Page 1 Admission Reconciliation Document Reconciliation Type: Admission from OR requested on behalf of Timothy Steinberg (Resident) done by Timothy Steinberg (Resident)) Admission from OR - Reconciliation: 26-Sep-2021 18:10 by: Timothy Steinberg (Resident)) Home MedicationsEnteredLast Dose TakenReconciled with current Order Reconciliation Comment/ Additional Information hydroxychloroquine 200 mg oral tablet 1 tab(s) oral 2 times a [id number]-Sep-2021 Hydroxychloroquine - PEDS Tablet (PLAQUENIL)DOSE = 200 mg Oral 2 Times a Dayhydroxychloroquine 200 mg oral tablet continued as the inpatient order Hydroxychloroquine - PEDS irbesartan 300 mg oral tablet 1 tab(s) oral once a [id number] 2 Reviewed and Held methocarbamol 500 mg oral tablet 2 tab(s) oral every 8 [id number]-972926-Sep-2021 Reviewed and Held NIFEdipine 30 mg oral tablet, extended release 1 tab(s) oral once a day [id number] NIFEdipine (PROCARDIA XL) Extended Release Tablet, Extended ReleaseDOSE = 30 mg Oral DailyNIFEdipine 30 mg oral tablet, extended release continued as the inpatient order NIFEdipine (PROCARDIA XL) Extended Release pantoprazole 40 mg oral delayed release tablet 1 tab(s) oral once a day [id number] Pantoprazole Enteric Coated Tablet (PROTONIX)DOSE = 40 mg Oral Dailypantoprazole 40 mg oral delayed release tablet continued as the inpatient order Pantoprazole tiZANidine 4 mg oral tablet 1 oral Reviewed and Held Vitamin C 1 3 times a vhv30-Cso-905639-Mui-460 2 Reviewed and Held Vitamin D3 1 3 times a rtt80-Rjs-255977-Kpy-530 2 Reviewed and Held Zinc 140 mg [...] of 4 mg regardless of dose. HYDROmorphone PATHOLOGY TECHNICIAN 25 mg/ NaCL 0.9% 50 mL (DILAUDID IV PATHOLOGY TECHNICIAN)DEMAND/ PATHOLOGY TECHNICIAN Dose = 0.2 mgDELAY/ Lockout Time Period [...] unarousable, and respiratory rate lessClinician Notes: HOLD PATHOLOGY TECHNICIAN Infusion and notify H.O. immediately Ondansetron Injectable [...] hours: Do NOT use with Bisacodyl. Normal [facility]3] Patient Profile - Adult v2on 09-26-2021 Patient Profile - Adult v2 Profile: Initial Info: How to be AddressedPaul(1) Spoken Language PreferredEnglish (1) Stated Reason for Admissionback and hip pain Wants Family/Rep Notified of Admissionno Notify PCPdo not notify PCP Informed of Patient Visiting Rightsyes Arrived Fromterral Patient Belongingsremains with patient Patient Belongings Remaining [...] Arrangementshouse Services Anticipated at Transitionnone Anticipated Transition Toterral Significant IndicatorsComplete Information Review: Allergies, Home Meds [...] From 1. Vital Signs 26-Sep-2021 07:09 Normal [facility] ([facility]3] Patient Profile - Preop v3on 09-26-2021 Patient Profile - Preop v3 Patient Profile - Preop: Initial Info: Patient DemographicsName: JAY CARR Date: 1960 Address: [facility] [address] [address] Primary Phone [phone] How to be AddressedPaul Spoken Language PreferredEnglish [...] Withspouse Living Arrangementshouse Resource/Environmental Concernsnone Anticipated Transition Toterral Services Anticipated at Transitionnone Tobacco Use: Tobacco Useno Pre-op Checklist: Arrival [id number]-Htf-5413 NPOyes ID Band On Patientpatient ID (name), [...] Updated: 26-Sep-2021 07:11 by Maisha Meyer) Normal [facility]3] CORONAVIRUS 2019, SCREEN ASY MPTOMATICon 09-25-2021 SARS-CoV-2 (COVID-19) RNA LU+probe Ql (Unsp spec) Not detected Normal Not Detected [facility]3] Comment on above: Result Comment: . This [...] patient management decisions. Fact sheet for providers: https://www.fda.gov/media/321239/download Fact sheet for patients: https://www.fda.gov/media/064375/download This test has received FDA Emergency Use Authorization (EUA) and has been verified by [facility] ([facility]). This test is only authorized for the duration of time that circumstances exist to justify the authorization of the emergency use of in vitro diagnostic tests for the detection of SARS-CoV-2 virus and/or diagnosis of COVID-19 infection under section 564(b)(1) of the Act, 21 U.S.C. 360bbb-3(b)(1), unless the authorization is terminated or revoked sooner. [facility] is certified under CLIA-88 as qualified to perform high complexity testing. Testing is performed in the [facility] laboratories located at [address] [place] [address]. Performed By: #### U ARFX #### [place] [address] Lab Specimen Source Nasal, Nasopharyngeal Normal [facility]3] Comment on above: Performed By: #### U ARFX #### [place] [address] Covid 19 Resultson 2 SARS-CoV-2 (COVID-19) RNA [...] may also be contacted by the [facility] to see if any of your [...] or Naproxen (Aleve) can also be used. Ttdn-bto-hpkwscu cough and cold medicines can be used according to the instructions on the package. Some htkn-cjp-xdczbrb medicines also contain acetaminophen. Make sure you [...] water are not available, use alcohol-based hand feed mill manager. Avoid touching your eyes, nose, and mouth [...] 24 mary (more content not included)... Normal [facility]3] COAGULATION SCREENon 022 aPTT Coag (Bld) [Time] 34 s Normal 26 - 39 [facility]3] Comment on above: Result Comment: THE APTT IS NO LONGER USED FOR MONITORING UNFRACTIONATED HEPARIN THERAPY. FOR MONITORING HEPARIN THERAPY, USE THE HEPARIN ASSAY. Performed By: #### U ARFX #### [facility] [address] [place] [address] PT Coag (PPP) [Time] 11.1 s Normal 9.8 - 13.4 [facility] Comment on above: Performed By: #### U ARFX #### [facility] [address] [place] [address] PT, INR 1.0 Normal 0.9 - 1.1 [facility]3] Comment on above: Performed By: #### U ARFX #### [facility] [address] [place] [address] Laboratory - Blood bankon ABO group Nom [...] SCREEN PATIENT: JAY CARR LOCATION: [facility] STOLL#: [id number] : 62 AGE: SEX: M ORDERED BY: SAL RICHARDSON SOURCE: ANTERIOR NARES COLLECTED: 09/19/21 10:10 ANTIBIOTICS AT BRAEDEN.: RECEIVED : 09/19/21 12:47 SITE: Nasal R E S U L T S STAPH/MRSA SCREEN FINAL 09/20/21 13:57 NO Staphylococcus aureus ISOLATED. Normal [facility]3] Comment on above: Performed By: #### S TAPH #### [facility] [address] [place] [address] TYPE + SCREENon 09-19-2021 ABO TYPE O Normal [facility]3] Comment on above: Performed By: #### T +S #### [facility] [address] [place] [address] RH TYPE Negative Normal [facility]3] Comment on above: Performed By: #### T +S #### [facility] [address] [place] [address] URINALYSISon 09-19-2021 Appearance (U) Canceled Normal [facility] Comment on above: Order Comment: TEST URINALYSIS WAS CANCELLED, 09/19/2021 12:02 DUPLICATE ORDER. Performed By: #### U A #### [facility] [address] [place] [address] ASCORBIC ACID Canceled Normal [facility] Comment on above: Order Comment: TEST URINALYSIS WAS CANCELLED, 09/19/2021 12:02 DUPLICATE ORDER. Result Comment: Conc entrations > = 20 mg/dL of ascorbic acid can be expected to cause strong interference in the reactions testing for glucose, nitrite and blood. It is recommended to discontinue Vitamin C administration and retest in 10 hours. Performed By: #### U A #### [facility] [address] [place] [address] Bilirubin Ql (U) Canceled Normal [facility] [place] Comment on above: Order Comment: TEST URINALYSIS WAS CANCELLED, 09/19/2021 12:02 DUPLICATE ORDER. Performed By: #### U A #### [facility] [address] [place] [address] Color (U) Canceled Normal [facility]3] Comment on above: Order Comment: TEST URINALYSIS WAS CANCELLED, 09/19/2021 12:02 DUPLICATE ORDER. Performed By: #### U A #### [facility] [address] [place] [address] Glucose Ql (U) Canceled Normal [facility] Comment on above: Order Comment: TEST URINALYSIS WAS CANCELLED, 09/19/2021 12:02 DUPLICATE ORDER. Performed By: #### U A #### [facility] [address] [place] [address] Hemoglobin Ql (U) Canceled Normal [facility] Comment on above: Order Comment: TEST URINALYSIS WAS CANCELLED, 09/19/2021 12:02 DUPLICATE ORDER. Performed By: #### U A #### [facility] [address] [place] [address] Ketones Ql (U) Canceled Normal [facility] Comment on above: Order Comment: TEST URINALYSIS WAS CANCELLED, 09/19/2021 12:02 DUPLICATE ORDER. Performed By: #### U A #### [facility] [address] [place] [address] Leukocyte esterase Test strip Ql (U) Canceled Normal [facility]3] Comment on above: Order Comment: TEST URINALYSIS WAS CANCELLED, 09/19/2021 12:02 DUPLICATE ORDER. Performed By: #### U A #### [facility] [address] [place] [address] Nitrite Ql (U) Canceled Normal [facility] Comment on above: Order Comment: TEST URINALYSIS WAS CANCELLED, 09/19/2021 12:02 DUPLICATE ORDER. Performed By: #### U A #### [facility] [address] [place] [address] pH Canceled Normal [facility]3] Comment on above: Order Comment: TEST URINALYSIS WAS CANCELLED, 09/19/2021 12:02 DUPLICATE ORDER. Performed By: #### U A #### [facility] [address] [place] [address] Protein Ql (U) Canceled Normal [facility] Comment on above: Order Comment: TEST URINALYSIS WAS CANCELLED, 09/19/2021 12:02 DUPLICATE ORDER. Performed By: #### U A #### [facility] [address] [place] [address] Specific gravity (U) [Rel density] Canceled Normal [facility]3] Comment on above: Order Comment: TEST URINALYSIS WAS CANCELLED, 09/19/2021 12:02 DUPLICATE ORDER. Performed By: #### U A #### [facility] [address] [place] [address] UROBILINOGEN Canceled Normal [facility]3] Comment on above: Order Comment: TEST URINALYSIS WAS CANCELLED, 09/19/2021 12:02 DUPLICATE ORDER. Performed By: #### U A #### [facility] [address] [place] [address] URINALYSIS WITH CULTURE IF I NDICATEDon 09-19-2021 Appearance (U) CLEAR Normal CLEAR [facility] Comment on above: Performed By: #### U ARFX #### [facility] [address] [place] [address] Bilirubin Ql (U) Negative Normal NEGATIVE [facility] [place] Comment on above: Performed By: #### U ARFX #### [facility] [address] [place] [address] Color (U) YELLOW Normal STRAW,YELL OW [facility]3] Comment on above: Performed By: #### U ARFX #### [facility] [address] [place] [address] Glucose Ql (U) Negative Normal NEGATIVE [facility] Comment on above: Performed By: #### U ARFX #### [facility] [address] [place] [address] Hemoglobin Ql (U) Negative Normal NEGATIVE [facility] Comment on above: Performed By: #### U ARFX #### [facility] [address] [place] [address] Ketones Ql (U) Negative Normal NEGATIVE [facility] Comment on above: Performed By: #### U ARFX #### [facility] [address] [place] [address] Leukocyte esterase Test strip Ql (U) Negative Normal NEGATIVE [facility]3] Comment on above: Performed By: #### U ARFX #### [facility] [address] [place] [address] Nitrite Ql (U) Negative Normal NEGATIVE [facility] Comment on above: Performed By: #### U ARFX #### [facility] [address] [place] [address] pH (U) 6.0 [pH] Normal 5.0 - 8.0 [facility]3] Comment on above: Performed By: #### U ARFX #### [facility] [address] [place] [address] Protein Ql (U) Negative Normal NEGATIVE [facility] Comment on above: Performed By: #### U ARFX #### [facility] [address] [place] [address] Specific gravity (U) [Rel density] 1.016 Normal 1.005 - 1.035 [facility]3] Comment on above: Performed By: #### U ARFX #### [facility] [address] [place] [address] Urobilinogen (U) [Mass/Vol] mg/dL Normal 0.0 - 1.9 [facility]3] Comment on above: Performed By: #### U ARFX #### [facility] [address] [place] [address] Color (U) YELLOW See Below [facility]-Anesthesiol ogy-Ctr [...] may no (more content not included)... 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 COMPARISON: None. ACCESSION NUMBER(S): [id number] ORDERING CLINICIAN: SAL RICHARDSON FINDINGS: C-spine, two views Anterior spinal fusion C5-C7 with intact hardware. There is normal alignment. No fracture. No degenerative changes seen. IMPRESSION: Anterior spinal fusion C5-C7 without evidence hardware failure Electronically signed by: JULIA ARAIZA MD Normal [facility] CORONAVIRUS 2018, SCREEN ASY MPTOMATICon 07-05-2021 DATE OF SYMPTOM ONSET [[id number]]? Canceled Normal [facility]3] Comment on above: Order Comment: TEST CORONAVIRUS 2018, SCREEN ASYMPTOMATIC WAS CANCELLED, 07/05/2021 13:31 ptdid not have test done.. Performed By: #### U ARFX #### [address] [place] [address] SARS-CoV-2 (COVID-19) RNA LU+probe Ql (Unsp spec) Canceled Normal [facility]3] Comment on above: Order Comment: TEST CORONAVIRUS [...] patient management decisions. Fact sheet for providers: https://www.fda.gov/media/011808/download Fact sheet for patients: https://www.fda.gov/media/011608/download This test has received FDA Emergency Use Authorization (EUA) and has been verified by [facility] ([facility]). This test is only authorized for the duration of time that circumstances exist to justify the authorization of the emergency use of in vitro diagnostic tests for the detection of SARS-CoV-2 virus and/or diagnosis of COVID-19 infection under section 564(b)(1) of the Act, 21 U.S.C. 360bbb-3(b)(1), unless the authorization is terminated or revoked sooner. [facility] is certified under CLIA-88 as qualified to perform high complexity testing. Testing is performed in the [facility] laboratories located at [address] [place] [address]. Performed By: #### U ARFX #### [address] [place] [address] ABO/RH GROUP TESTon 06-21- 21 ABO TYPE O Normal [facility]3] Comment on above: Performed By: #### U ARFX #### [address] [place] [address] RH TYPE Negative Normal [facility]3] Comment on above: Performed By: #### U ARFX #### [facility] [address] [place] [address] Operative Reports - [facility] Operative Reports - [facility] [address] [place] [address] Patient Name: PAUL. Trena CARR : 1960 Date of Service: 06/21/2021 Patient Location: [place] [address] Patient Type: O Surgeon: Sal Richardson MD [...] anterior plate instrumentation. SURGEON: Sal Richardson MD THERMODYNAMICS ENGINEER(S): Ad Valdivia MD, chief resident. ANESTHESIA: ESTIMATED [...] current moratorium due to short staffing at [facility]. The patient agreed to have the [...] excellent posi (more content not included)... Normal [facility]3] Order Reconciliationon 06-21 Order Reconciliation Page 1 [...] a day (more content not included)... Normal [facility]3] Order Reconciliation Page 1 Admission Reconciliation Document Reconciliation Type: Admission requested on behalf of Cheikh August (Resident) done by Cheikh August ( (Resident)) Admission - Reconciliation: 21-Jun-2021 06:37 by: Cheikh August ( (Resident)) Home MedicationsEnteredLast Dose TakenReconciled with current Order Reconciliation Comment/ Additional Information celecoxib 200 mg oral capsule 1 cap(s) oral 2 times a inb29-Puv-8458 Reviewed and Held gabapentin 300 mg oral capsule 1 tab(s) oral once a jxr60-Zrs-0360 Reviewed and Held hydroxychloroquine 200 mg oral tablet 1 tab(s) oral 2 times a asx08-Yzd-1923 Hydroxychloroquine Tablet (PLAQUENIL)DOSE = 200 mg Oral 2 Times a Day hydroxychloroquine 200 mg oral tablet continued as the inpatient order Hydroxychloroquine irbesartan 300 mg oral tablet 1 tab(s) oral once a jov69-Orx-6215 Reviewed and Held NIFEdipine 30 mg oral [...] Pantoprazole Vitamin C 1 3 times a nhz46-Thz-2893 Reviewed and Held Vitamin D3 1 3 times a bgo50-Qbm-0960 Reviewed and Held Zinc 140 mg (as elemental zinc 50 mg) oral tablet 1 tab(s) oral once a day 21-Jun-2021 Reviewed and Held Normal [facility]3] Patient Profile - Preop v3on 06-21-2021 Patient Profile - Preop v3 Patient Profile - Preop: Initial Info: Patient DemographicsName: JAY CARR Date: 1960 Address: [facility] [address] [place], [address] Primary Phone [phone] How to be AddressedPaul Spoken Language PreferredEnglish Source of Informationpatient Stated Reason for Admissionback surgery Primary Contact Name and NumberTreangeline Carr () [phone] Limitations on Visitors/Phone Callsnone Patient Belongings2 bags in pacu, glasses and phone with pt Medications Brought to [facility]: Weight in kg98.9 kilogram(s) Weight in prn834 pound(s) Weight Methodactual (measured) Scale Typestanding Height [...] Withspouse Living Arrangementshouse Resource/Environmental Concernsnone Anticipated Transition Toterral Services Anticipated at Transitionnone Tobacco Use: Tobacco Useno Pre-op Checklist: Arrival [id number] Arrival Time06:43 Procedure TypeC5-7 decompression and fusion [...] Last Updated: 21-Jun-2021 06:45 by Maisha Meyer (RN) Normal [facility]3] CORONAVIRUS 2019, SCREEN ASY MPTOMATICon 06-20-2021 SARS-CoV-2 (COVID-19) RNA LU+probe Ql (Unsp spec) Not detected Normal Not Detected [facility]3] Comment on above: Result Comment: . This [...] patient management decisions. Fact sheet for providers: https://www.fda.gov/media/075713/download Fact sheet for patients: https://www.fda.gov/media/184307/download This test has received FDA Emergency Use Authorization (EUA) and has been verified by [facility] ([facility]). This test is only authorized for the duration of time that circumstances exist to justify the authorization of the emergency use of in vitro diagnostic tests for the detection of SARS-CoV-2 virus and/or diagnosis of COVID-19 infection under section 564(b)(1) of the Act, 21 U.S.C. 360bbb-3(b)(1), unless the authorization is terminated or revoked sooner. [facility] is certified under CLIA-88 as qualified to perform high complexity testing. Testing is performed in the [facility] laboratories located at [address] [place] [address]. Performed By: #### U ARFX #### [address] [place] [address] Covid 19 Resultson 1 SARS-CoV-2 (COVID-19) RNA [...] may also be contacted by the [facility] [place] [facility] to see if any of your [...] or Naproxen (Aleve) can also be used. Vkaj-nmf-fprrvzp cough and cold medicines can be used according to the instructions on the package. Some prkw-mud-jnobazq medicines also contain acetaminophen. Make sure you [...] water are not available, use alcohol-based hand feed mill manager. Avoid touching your eyes, nose, and mouth [...] 24 mary (more content not included)... Normal [facility]3] CORONAVIRUS 2019, SCREEN ASY MPTOMATICon 06-19-2021 Lab Specimen Source Nasal, Nasopharyngeal Normal [facility]3] Comment on above: Performed By: #### U ARFX #### [facility] [address] [place] [address] BASIC METABOLIC PANELon 12-1 0-2021 Anion gap [Moles/Vol] 14 mmol/L Normal 10 - 20 [facility]3] Comment on above: Performed By: #### B MP #### [facility] [address] [place] [address] Calcium [Mass/Vol] 9.0 mg/dL Normal 8.6 - 10.6 [facility] [place] Comment on above: Performed By: #### B MP #### [facility] [address] [place] [address] Chloride [Moles/Vol] 105 mmol/L Normal 98 - 107 [facility] Comment on above: Performed By: #### B MP #### [facility] [address] [place] [address] Creatinine [Mass/Vol] 0.85 mg/dL Normal 0.50 - 1.30 [facility]3] Comment on above: Performed By: #### B MP #### [facility] [address] [place] [address] GFR- AM. >60 Normal >60 [facility] Comment on above: Result Comment: CALC ULATIONS OF ESTIMATED GFR ARE PERFORMED USING THE MDRD STUDY EQUATION FOR THE IDMS-TRACEABLE CREATININE METHODS. CLIN CHEM 2007;53:766-72 Performed By: #### B MP #### [facility] [address] [place] [address] GFR-NON AM. >60 Normal >60 [facility] Comment on above: Performed By: #### B MP #### [facility] [address] [place] [address] Glucose [Mass/Vol] 87 mg/dL Normal 74 - 99 [facility] [place] Comment on above: Performed By: #### B MP #### [facility] [address] [place] [address] HCO3 (Bld) [Moles/Vol] 27 mmol/L Normal 21 - 32 [facility]3] Comment on above: Performed By: #### B MP #### [facility] [address] [place] [address] Potassium [Moles/Vol] 4.7 mmol/L Normal 3.5 - 5.3 [facility]3] Comment on above: Performed By: #### B MP #### [facility] [address] [place] [address] Sodium [Moles/Vol] 141 mmol/L Normal 136 - 145 [facility] [place] Comment on above: Performed By: #### B MP #### [facility] [address] [place] [address] Urea nitrogen [Mass/Vol] 19 mg/dL Normal 6 - 23 [facility]3] Comment on above: Performed By: #### B MP #### [facility] [address] [place] [address] CBCon 06-02-2021 Erythrocyte distribution width (RBC) [Ratio] 12.4 % Normal 11.5 - 14.5 [facility]3] Comment on above: Performed By: #### U A #### [facility] [address] [place] [address] Hematocrit (Bld) [Volume fraction] 43.6 % Normal 41.0 - 52.0 [facility]3] Comment on above: Performed By: #### U A #### [facility] [address] [place] [address] Hemoglobin (Bld) [Mass/Vol] 14.8 g/dL Normal 13.5 - 17.5 [facility]3] Comment on above: Performed By: #### U A #### [facility] [address] [place] [address] MCHC (RBC) [Mass/Vol] 33.9 g/dL Normal 32.0 - 36.0 [facility]3] Comment on above: Performed By: #### U A #### [facility] [address] [place] [address] MCV (RBC) [Entitic vol] 93 fL Normal 80 - 100 [facility]3] Comment on above: Performed By: #### U A #### [facility] [address] [place] [address] NUCLEATED RBC 0.0 /100 WBC Normal 0.0-0.0 [facility] Comment on above: Performed By: #### U A #### [facility] [address] [place] [address] Platelets (Bld) [#/Vol] 295 10*3/uL Normal 150 - 450 [facility]3] Comment on above: Performed By: #### U A #### [facility] [address] [place] [address] RBC 4.69 x10E12/L Normal 4.50 - 5.90 [facility]3] Comment on above: Performed By: #### U A #### [facility] [address] [place] [address] WBC (Bld) [#/Vol] 8.5 10*3/uL Normal 4.4 - 11.3 [facility] [place] Comment on above: Performed By: #### U A #### [facility] [address] [place] [address] COAGULATION SCREENon 021 aPTT Coag (Bld) [Time] 31 s Normal 26 - 39 [facility]3] Comment on above: Result Comment: Note new reference range as of 05/23/2021 at 10:00am. Performed By: #### U A #### [facility] [address] [place] [address] PT Coag (PPP) [Time] 12.2 s Normal 9.8 - 13.4 [facility] Comment on above: Result Comment: Note new reference range as of 05/23/2021 at 10:00am. Performed By: #### U A #### [facility] [address] [place] [address] PT, INR 1.1 Normal 0.9 - 1.1 [facility]3] Comment on above: Performed By: #### U A #### [facility] [address] [place] [address] Laboratory - Blood bankon ABO group Nom [...] Perioperative Med Work Phone: Laboratory - Coagulationon 08-03-2020 aPTT Coag (PPP) [Time] 31 s [...] Phone: Comment on above: Note new reference shanti guardado as of 05/23/2021 at 10:00am. Laboratory - [...] 06-02-20 STAPH/MRSA SCREEN PATIENT: JAY CARR LOCATION: [facility]#: [id number] : 62 AGE: SEX: M ORDERED BY: SAL RICHARDSON SOURCE: ANTERIOR NARES COLLECTED: 06/02/21 10:59 ANTIBIOTICS AT BRAEDEN.: RECEIVED : 06/02/21 13:35 SITE: Nasal R E S U L T S STAPH/MRSA SCREEN FINAL 06/04/21 07:50 NO Staphylococcus aureus ISOLATED. Normal [facility]3] Comment on above: Performed By: #### S TAPH #### [facility] [address] [place] [address] TH CHEST 2 VIEW PA AND LATon 06-02-2021 TH CHEST 2 VIEW PA AND LAT Patient Name: JAY CARR STUDY: TH CHEST 2 VIEW PA AND LAT; 06/02/2021 11:10 am INDICATION: covid follow up . COMPARISON: None. ACCESSION NUMBER(S): [id number] ORDERING CLINICIAN: SAL RICHARDSON FINDINGS: PA and [...] as stated. This study was interpreted at [facility], [place], [place]. Electronically signed by: RANJIT GONZALES MD Normal [facility]3] TYPE + SCREENon 06-02-2021 ABO TYPE O Normal [facility]3] Comment on above: Performed By: #### U A #### [facility] [address] [place] [address] RH TYPE Negative Normal [facility]3] Comment on above: Performed By: #### U A #### [facility] [address] [place] [address] UA MICROSCOPICon 06-02-2021 CA OXALATE CRYSTAL 3+ /HPF Abnormal [facility] [place] Comment on above: Performed By: #### U A #### [facility] [address] [place] [address] Mucus Ql (Urine sed) 4+ /LPF Normal [facility] Comment on above: Performed By: #### U A #### [facility] [address] [place] [address] RBC 11 /HPF Abnormal 0-5 [facility]3] Comment on above: Performed By: #### U A #### [facility] [address] [place] [address] SQUAMOUS EPITH. CELLS 1 /HPF Normal [facility]3] Comment on above: Performed By: #### U A #### [facility] [address] [place] [address] WBC 1 /HPF Normal 0-5 [facility]3] Comment on above: Performed By: #### U A #### [facility] [address] [place] [address] URINALYSIS WITH CULTURE IF I NDICATEDon 06-02-2021 Appearance (U) HAZY Normal CLEAR [facility] Comment on above: Performed By: #### U A #### [facility] [address] [place] [address] Bilirubin Ql (U) Negative Normal NEGATIVE [facility], [place], [facility] Comment on above: Performed By: #### U A #### [facility] [address] [place] [address] Color (U) YELLOW Normal STRAW,YELL OW [facility]3] Comment on above: Performed By: #### U A #### [facility] [address] [place] [address] Glucose Ql (U) Negative Normal NEGATIVE [facility] Comment on above: Performed By: #### U A #### [facility] [address] [place] [address] Hemoglobin Ql (U) Negative Normal NEGATIVE [facility] Comment on above: Performed By: #### U A #### [facility] [address] [place] [address] Ketones Ql (U) Negative Normal NEGATIVE [facility] Comment on above: Performed By: #### U A #### [facility] [address] [place] [address] Leukocyte esterase Test strip Ql (U) Negative Normal NEGATIVE [facility]3] Comment on above: Performed By: #### U A #### [facility] [address] [place] [address] Nitrite Ql (U) Negative Normal NEGATIVE [facility] Comment on above: Performed By: #### U A #### [facility] [address] [place] [address] pH (U) 5.0 [pH] Normal 5.0 - 8.0 [facility]3] Comment on above: Performed By: #### U A #### [facility] [address] [place] [address] Protein Ql (U) 100 (2+) Abnormal NEGATIVE [facility] Comment on above: Performed By: #### U A #### [facility] [address] [place] [address] Specific gravity (U) [Rel density] 1.026 Normal 1.005 - 1.035 [facility]3] Comment on above: Performed By: #### U A #### [facility] [address] [place] [address] Urobilinogen (U) [Mass/Vol] mg/dL Normal 0.0 - 1.9 [facility]3] Comment on above: Performed By: #### U A #### [facility] [address] [place] [address] Color (U) YELLOW See Below [facility] [...] 05-23-2021 Lab Specimen Source Nasal, Nasopharyngeal Normal [facility]3] Comment on above: Order Comment: TEST CORONAVIRUS 2019, SCREEN ASYMPTOMATIC WAS CANCELLED, 07/05/2021 13:31 ptdid not have test done.. Performed By: #### U ARFX #### [facility] [address] [place] [address] Tobacco Screening.on 021 Fall risk assessment a) [...] COMPARISON: Lumbosacral spine radiographs 02/09/2021 ACCESSION NUMBER(S): [id number] ORDERING CLINICIAN: TONJA GERARDO TECHNIQUE: Sagittal and [...] degenerative disc height loss at L2-L3 with [id number] height loss at L1-L2. Conus: The lower [...] right, without spinal canal stenosis. There is mrvu-sh-jsrydvgd right and mild left neural foraminal narrowing. [...] as stated. This study was interpreted at [facility], [place], [place]. Electronically signed by: STEVE YANG MD Normal [facility] No Panel Informationon 02-09 Normal [facility] Work Phone: Please click on the link to view the study images Normal [facility] Work Phone: SPINE, LUMBOSACRAL; MIN 4 EWSon 02-09-2021 SPINE, LUMBOSACRAL; MIN 4 VIEWS Patient Name: JAY CARR STUDY: Lumbar Spine, 4 views. INDICATION: Low back pain COMPARISON: None. ACCESSION NUMBER(S): [id number] ORDERING CLINICIAN: TONJA GERARDO FINDINGS: Grade 1 [...] Electronically signed by: JOSE GOEL MD Normal [facility] MRI L-Ext Joint w/o Contrast LTon 01-12-2021 [...] by: CAROLINA 01/12/2021 08:43 Technologist: AMANDA Normal [facility] Basic metabolic 2000 panelon 11-10-2020 Calcium [Mass/Vol] 9.5 mg/dL Normal 8.5-10.6 [facility] Chloride [Moles/Vol] 104 mmol/L Normal 98-[address] [facility] CO2 [Moles/Vol] 28 mmol/L Normal 21-32 [facility] Creatinine [Mass/Vol] 0.85 mg/dL Normal 0.55-1.02 [facility] Glucose [Mass/Vol] 112 mg/dL High 70-99 [facility] Potassium [Moles/Vol] 4.2 mmol/L Normal 3.5-5.1 [facility] Sodium [Moles/Vol] 142 mmol/L Normal 136-145 [facility] Urea nitrogen (BldV) [Mass/Vol] 20 mg/dL High 7.0-18.0 [facility] Urea nitrogen/Creatinine [Mass ratio] 24 mg/mg Normal [facility] CBC W Auto Differential pane l (Bld)on 11-10-2020 Basophils (Bld) [#/Vol] 0.0 thou/mcL Normal 0.0-0.2 [facility] Basophils/100 WBC (Bld) 0.5 % Normal 0-3 [facility] Differential cell count method Nom (Bld) AUTOMATED DIFFERENTIAL Normal Mo [facility] Eosinophils (Bld) [#/Vol] 0.1 thou/mcL Normal 0.0-0.4 [facility] Eosinophils/100 WBC (Bld) 0.9 % Normal 0-7 [facility] Erythrocyte distribution width (RBC) [Entitic vol] 13.0 % Normal 11.7-15.0 [facility] Hematocrit (Bld) [Volume fraction] 43.4 % Normal 34.0-50.0 [facility] Hemoglobin (Bld) [Mass/Vol] 15.0 g/dL Normal 11.5-17.0 [facility] Lymphocytes (Bld) [#/Vol] 1.0 thou/mcL Normal 0.7-4.5 [facility] Lymphocytes/100 WBC (Bld) 15.6 % Normal 14-46 [facility] MCH (RBC) [Entitic mass] 32.5 Picograms Normal 27.0-34.0 [facility] MCHC (RBC) [Mass/Vol] 34.6 g/dL Normal 32.0-36.0 [facility] MCV (RBC) [Entitic vol] 94.0 fL Normal 80-98 [facility] Monocytes (Bld) [#/Vol] 0.6 thou/mcL Normal 0.1-1.0 [facility] Monocytes/100 WBC (Bld) 9.8 % Normal 4-13 [facility] Neutrophils (Bld) [#/Vol] 4.7 thou/mcL Normal 1.5-7.8 [facility] Neutrophils/100 WBC (Bld) 73.2 % Normal 40-74 [facility] Platelet mean volume (Bld) [Entitic vol] 9.4 fL Normal 7.5-11.2 [facility] Platelets (Bld) [#/Vol] 220 thou/mcL Normal 140-415 [facility] RBC (Bld) [#/Vol] 4.62 x(10)6/mcL Normal 3.80-5.60 [facility] WBC (Bld) [#/Vol] 6.5 thou/mcL Normal 4.0-10.5 [facility] PT Coag (PPP) [Time]on 11-10 INR Coag (Bld) [Relative time] 0.9 {INR} Normal [facility] Comment on above: Result Comment: ENRRIQUE GRIMES THE INDUCTION PHASE OF ORAL ANTICOAGULATION, THE INR MAY NOT REFLECT THE ANTICOAGULANT STATUS OF THE PATIENT. THERAPEUTIC RANGES FOR INR'S ARE: MOST CLINICAL SITUATIONS: INR 2.0-3.0 MECHANICAL PROSTHETIC VALVES: INR 2.5-3.5 CRITICAL: INR 5.0 Prothrombin Timeon PT Coag (PPP) [Time] 12.6 s Normal 11.9-14.6 [facility] aPTT Coag (Bld) [Time]on aPTT Coag (PPP) [Time] 38.6 s High 23.2-34.6 Mo [facility] Vital Signs Date Time Vital Sign Value Performing Clinician Facility 04-08-2023 10:38-0400 Blood Pressure Location Shun MACHADO [facility] 04-08-2023 10:38-0400 Diastolic blood pressure 82 mm[Hg] Shun MACHADO [facility] 04-08-2023 10:38-0400 Heart rate 71 /min Shun [employer] [facility] 04-08-2023 10:38-0400 Systolic blood pressure 154 mm[Hg] [facility]un [employer] [facility] 10-16-2022 14:18-0400 Blood Pressure Location Shun MACHADO [facility] 10-16-2022 14:18-0400 Diastolic blood pressure 94 mm[Hg] Shun [employer] [facility] 10-16-2022 14:18-0400 Heart rate 72 /min Shun [employer] [facility] 10-16-2022 14:18-0400 Systolic blood pressure 186 mm[Hg] [facility] [employer] [facility] 10-02-2022 13:36-0400 Blood Pressure Location Arely LOGAN [facility] 10-02-2022 13:36-0400 Diastolic blood pressure 80 mm[Hg] Arely LOGAN [facility] [place] 10-02-2022 13:36-0400 Heart rate 76 /min Arely LOGAN [facility] [place] 10-02-2022 13:36-0400 Respiratory rate 16 /min Arely KRISHNAMURTHYKorin [facility] [place] 10-02-2022 13:36-0400 Systolic blood pressure 144 mm[Hg] Arely LOGAN [facility] [place] 02-15-2022 14:19-0400 Diastolic blood pressure 95 mm[Hg] MD Audrey Armstrong Work Phone: [facility] 02-15-2022 14:19-0400 Heart rate 66 /min MD Audrey Armstrong Work Phone: [facility] 02-15-2022 14:19-0400 Respiratory rate 16 /min MD Audrey Armstrong Work Phone: [facility] 02-15-2022 14:19-0400 SaO2% (BldA) [Mass fraction] 99 % MD Audrey Armstrong Work Phone: [facility] 02-15-2022 14:19-0400 Systolic blood pressure 170 mm[Hg] MD Audrey Armstrong Work Phone: [facility] 02-15-2022 13:04-0400 Inhaled oxygen flow rate 6 L/min MD Audrey Armstrong Work Phone: [facility] 02-15-2022 12:00-0400 Body weight 42 mg MD Audrey Armstrong Work Phone: [facility] 02-15-2022 10:03-0400 Body height 175.26 cm MD Audrey Armstrong Work Phone: [facility] 02-15-2022 10:03-0400 Body mass index (BMI) [Ratio] 31.3 kg/m2 MD Audrey Armstrong Work Phone: [facility] 02-15-2022 10:03-0400 Body weight 96.16 kg MD Audrey Armstrong Work Phone: [facility] 02-15-2022 07:29-0400 Body temperature 98.8 [degF] MD Audrey Armstrong Work Phone: [facility] 01-24-2022 13:59-0400 Blood Pressure Location Arely NILL [facility] [place] 01-24-2022 13:59-0400 Diastolic blood pressure 74 mm[Hg] Arely NILL [facility] [place] 01-24-2022 13:59-0400 Heart rate 72 /min Arely NILL [facility] [place] 01-24-2022 13:59-0400 Respiratory rate 16 /min Arely NILL [facility] [place] 01-24-2022 13:59-0400 Systolic blood pressure 140 mm[Hg] Arely KRISHNAMURTHYL [facility] [place] 01-19-2022 16:45-0400 Diastolic blood pressure 84 mm[Hg] MD Audrey Armstrong Work Phone: [facility] 01-19-2022 16:45-0400 Heart rate 70 /min MD Audrey Armstrong Work Phone: [facility] 01-19-2022 16:45-0400 Respiratory rate 16 /min MD Audrey Armstrong Work Phone: [facility] 01-19-2022 16:45-0400 SaO2% (BldA) [Mass fraction] 98 % MD Audrey Armstrong Work Phone: [facility] 01-19-2022 16:45-0400 Systolic blood pressure 148 mm[Hg] MD Audrey Armstrong Work Phone: [facility] 01-19-2022 15:04-0400 Body height 177.8 cm MD Audrey Armstrong Work Phone: [facility] 01-19-2022 15:04-0400 Body mass index (BMI) [Ratio] 31.2 kg/m2 MD Audrey Armstrong Work Phone: [facility] 01-19-2022 15:04-0400 Body weight 98.8 kg MD Audrey Armstrong Work Phone: [facility] 01-19-2022 14:24-0400 Body temperature 98.6 [degF] MD Audrey Armstrong Work Phone: [facility] 09-27-2021 09:44-0400 Body temperature 97.88 [degF] Audrey Armstrong Other Phone: [facility]3] 09-27-2021 09:44-0400 Diastolic blood pressure 74 mm[Hg] Audrey Anthonyy Other Phone: [facility]3] 09-27-2021 09:44-0400 Heart rate 89 /min Audrey Anthonyy Other Phone: [facility]3] 09-27-2021 09:44-0400 Respiratory rate 18 /min Audrey Hoy Other Phone: [facility]3] 09-27-2021 09:44-0400 SaO2% (BldA) [Mass fraction] 94 % Audrey Hoy Other Phone: [facility]3] 09-27-2021 09:44-0400 Systolic blood pressure 149 mm[Hg] Audrey Hoy Other Phone: [facility]3] 03-16-2021 08:34-0400 Body weight 101.86 kg No [...] Care Provider Facility Start: 04-13-2024 ambulatory Shun Mirza CHRIS Facility :[facility] Start: 03-04-2024 End: 03-04-2024 Patient encounter procedure MD Audrey Armstrong Work Phone: [facility] [address] Work Phone: Start: 03-04-2024 End: 03-04-2024 ambulatory MD Audrey Armstrong Work Phone: [facility] Work Phone: Start: 12-27-2023 Non-patient / Non-visit MD Brittani Armstrong [facility] Phone[facility] Work Phone: Start: 11-19-2023 End: 11-19-2023 Patient encounter procedure MD Audrey Armstrong Work Phone: [facility] [address] Work Phone: Start: 11-19-2023 End: 11-19-2023 ambulatory MD Audrey Armstrong Work Phone: [facility] Work Phone: Start: 08-28-2023 End: 08-28-2023 ambulatory STEFANIE KNIGHT Not Available Start: 08-26-2023 End: 08-26-2023 ambulatory PB MAY Not Available Start: 07-30-2023 End: 07-30-2023 ambulatory GENE FREY Not Available Start: 07-25-2023 End: 07-25-2023 ambulatory STEFANIE KNIGHT Not Available Start: 07-23-2023 End: 07-23-2023 ambulatory GENE FREY Not Available Start: 07-18-2023 End: 07-19-2023 ambulatory GENE FREY Not Available Start: 07-18-2023 End: 07-18-2023 Patient encounter procedure MD Audrey Armstrong Work Phone: [facility] [address] Work Phone: Start: 07-18-2023 End: 07-18-2023 ambulatory MD Audrey Armstrong Work Phone: [facility] Work Phone: Start: 07-16-2023 End: 07-16-2023 ambulatory GENE FREY Not Available Start: 07-09-2023 End: 07-09-2023 ambulatory STEFANIE KNIGHT Not Available Start: 04-08-2023 End: 04-08-2023 ambulatory Shun MACHADO Facility:[facility] Start: 04-08-2023 End: 04-08-2023 Patient encounter procedure Shun MACHADO [facility] Start: 03-12-2023 End: 03-12-2023 ambulatory ANTWAN SORIANO Facility:[facility] Start: 02-19-2023 End: 02-19-2023 ambulatory MD Audrey Armstrong Work Phone: [facility] Work Phone: Start: 02-19-2023 End: 02-19-2023 Patient encounter procedure MD Audrey Armstrong Work Phone: [facility] [address] Work Phone: Start: 10-16-2022 End: 10-16-2022 Patient encounter procedure Shun MACHADO [facility]addy Start: 10-15-2022 End: 10-15-2022 ambulatory MD Audrey Armstrong Work Phone: [facility] Work Phone: Start: 10-15-2022 End: 10-15-2022 Patient encounter procedure MD Audrey Armstrong Work Phone: [facility] [address] Work Phone: Start: 10-02-2022 End: 10-02-2022 Patient encounter procedure Arely LOGAN General Surgery [facility] [place] Start: 09-11-2022 End: 09-11-[address] AUDREY ARMSTRONG . Facility:[facility] Start: 09-05-2022 ambulatory JENI SAEED Faci lity:[facility] Start: 08-31-2022 End: 09-01-[address] ARELY LOGAN . Facility:[facility] Start: 08-27-2022 Chart Update Audrey Armstrong Work Phone: [facility] Work Phone: Start: 08-16-2022 End: 08-17-2022 ambulatory WADE NELSON Facility:[facility] Start: 07-19-2022 End: 07-20-2022 ambulatory WADE NELSON Facility:[facility] Start: 07-06-2022 End: 07-07-[address] AUDREY ARMSTRONG . Facility:[facility] Start: 06-19-2022 Encounter for preprocedural laboratory examination JENI SAEED [facility] Start: 06-07-2022 End: 06-08-[address] AUDREY ARMSTRONG . Facility:[facility] Start: 06-04-2022 End: 06-05-[address] AUDREY ARMSTRONG . Facility:[facility] Start: 06-04-2022 End: 06-05-2022 Encounter for preprocedural laboratory examination DR AUDREY ARMSTRONG . Facility:[facility] Start: 05-31-2022 Encounter for preprocedural cardiovascular examination JENI SAEED [facility] Start: 05-25-2022 End: 05-26-2022 ambulatory JENI SAEED Facility:[facility] Start: 05-25-2022 End: 05-26-2022 Encounter for preprocedural cardiovascular examination JENI SAEED Facility:[facility] Start: 05-23-[address] AUDREY ARMSTRONG . Facili ty:[facility] Start: 05-23-2022 End: 05-23-2022 ambulatory MD Audrey Armstrong Work Phone: [facility] Work Phone: Start: 05-23-2022 End: 05-23-2022 Patient encounter procedure MD Audrey Armstrong Work Phone: [facility] [address] Start: 05-02-2022 ambulatory Mr. Kenton Lawson Fa cility:[facility] Start: 05-02-2022 Office outpatient vi sit 25 minutes Audrey Armstrong Work Phone: [id number]-Ymcyywq 5FL DO Work Phone: Start: 03-30-2022 Encounter for genera l adult medical examination without abnormal findings DR AUDREY ARMSTRONG . [facility] Start: 03-28-2022 End: 03-29-[address] AUDREY ARMSTRONG . Facility:[facility] Start: 03-28-2022 End: 03-29-2022 Encounter for general adult medical examination without abnormal findings DR AUDREY ARMSTRONG . Facility:[facility] Start: 02-15-2022 End: 02-15-2022 Admission to same day surgery center MD Audrey Armstrong Work Phone: [facility] [place] Start: 02-14-2022 End: 02-15-2022 [facility] Start: 02-13-2022 End: 02-13-2022 Patient encounter procedure MD Audrey Armstrong Work Phone: [facility] Start: 01-30-2022 End: 01-30-2022 Patient encounter procedure Shun MACHADO [facility] Start: 01-29-2022 End: 01-30-[address] AUDREY ARMSTRONG . Facility:[facility] Start: 01-29-2022 ambulatory Audrey Armstrong Fac ility:[facility] Start: 01-29-2022 Office outpatient vi sit 15 minutes Audrey M Hoy Work Phone: [id number]-Iqebcxkpmaam-Yrzkpcb 5FL DO Work Phone: Start: 01-29-2022 [address] Mr[address] Suarez Peterdipak Fa cility:[id number] Start: 01-24-2022 End: 01-24-2022 Patient encounter procedure Arely Costello NILL General Surgery Nill/Said Antoine Start: 01-19-2022 End: 01-19-2022 Admission to same day surgery center MD Audrey Armstrong Work Phone: [facility] [place] Start: 01-17-2022 End: 01-17-2022 Patient encounter procedure MD Audrey Armstrong Work Phone: [facility] Start: 01-11-2022 End: 01-12-[address] SHUN MACHADO Facility:H1 Start: 01-09-2022 End: 01-09-[address] LAURY ZEPEDA Facility:H1 Start: 01-05-2022 End: 01-06-[address] AUDREY ARMSTRONG . Facility:H1 Start: 12-27-2021 End: 12-28-[address] AUDREY ARMSTRONG . Facility:H1 Start: 12-09-2021 End: 12-10-[address] AUDREY ARMSTRONG . Facility:H1 Start: 11-09-2021 Chart Update Audrey Armstrong Work Phone: UM-Odagrkajzvif-Tlfngo 210 Work Phone: Start: 11-08-2021 Postop follow up vis it related to original px Audrey Armstrong Work Phone: RB-Ourwbsnibluz-Umrvous 5FL DO Work Phone: Start: 11-08-2021 POV, Provider: Kenton Lawson, Status: Pen, Time: 11:00 AM Audrey Armstrong Work Phone: TX-Yywtzhfrttun-Bdasmi 210 Work Phone: Start: 11-08-2021 ambulatory Audrey Rivera ility:[facility] Start: 11-07-2021 AUDIT Audrey Armstrong Work Phone: FQ-Sxpgopstxvls-Pyajfd 210 Work Phone: Start: 09-26-2021 End: 09-27-2021 Evaluation and management of inpatient Sal Richardson [facility] TT06 Rm [id number] Start: 09-19-2021 AUDIT Audrey Armstrong Work Phone: ST-Abxodvaguzjtzz-Dlv for Perioperative Med Work Phone: Start: 09-19-2021 ambulatory Audrey Rivera ility:[facility] Start: 09-19-2021 Encounter for blood typing Dr. SAL RICHARDSON [facility]3] Start: 09-19-2021 Encounter for preprocedural laboratory examination Dr. SAL RICHARDSON [facility]3] Start: 08-23-2021 Office outpatient vi sit 40 minutes Audrey Armstrong Work Phone: MZ-Etmhfitcwreg-Qtseeim ng-Jew Work Phone: Start: 08-23-2021 ambulatory Audrey Rivera ility:[facility] Start: 08-03-2021 Office outpatient vi sit 25 minutes Audrey Armstrong Work Phone: UV-Odvhpkvfzjmr-Aydrzt 210 Work Phone: Start: 08-03-2021 ambulatory Referral Self Facility: [id number] Start: 06-21-2021 End: 06-21-2021 ambulatory Audrey Armstrong Facility:[facility] Start: 06-02-2021 AUDIT No PCP None [facility]Anest[facility] siology-Ctr for Perioperative Med Work Phone: Start: 06-02-[address] SAL RICHARDSON Facility:[facility] Start: 06-02-[address] SAL RICHARDSON Facility:[facility] Start: 06-02-2021 Encounter for other preprocedural examination Dr. SAL RICHARDSON [facility]3] Start: 06-02-2021 Encounter for preprocedural cardiovascular examination Dr. SAL RICHARDSON [facility]3] Start: 05-03-2021 Office outpatient vi sit 40 minutes No PCP None IC-Cjfwckmckcoa-Tiwhiwi ng-[facility]itan Work Phone: Start: 03-16-2021 NPV, Provider: Nazario Holloway, Status: Pen, Time: 8:30 AM No PCP None [facility] Work Phone: Start: 03-16-2021 Office outpatient ne w 30 minutes No PCP None [facility]-Jose Work Phone: Start: 03-16-2021 Patient encounter procedure No PCP None [facility] Work Phone: Start: 03-13-2021 Office consultation new/estab patient 80 min No PCP None [facility] Work Phone: Start: 03-10-2021 Chart Update No PCP None MG-Orthopa edics-Risman 210 Work Phone: Start: 03-06-2021 Telephone encounter No PCP None [facility]-[place] Work Phone: Start: 02-12-2021 Chart Update No PCP None [facility]-Orthopa edics-Risman 210 Work Phone: Start: 02-09-2021 Office outpatient ne w 45 minutes No PCP None LC-Dupuwsecihzp-Cknolz 210 Work Phone: Start: 02-08-2021 AUDIT No PCP None [facility]Orthopa edics-Risman 210 Work Phone: Procedures Date Procedure Procedure Detail Performing Clinician Start: 06-07-2022 Fusion of Right Tars al Joint with Synthetic Substitute, Open Approach JENI SAEED Start: 06-07-2022 Transfer Right Foot Tendon, Open Approach JENI SAEED Start: 03-28-2022 PSA screening JENI CONNOR Comment on above: Performed By: #### P [facility] #### [facility] [address] [place] [address] Dr. Carolyn King Start: 02-15-2022 Cystoscopy MD [...] above: Performed By: #### T +S #### [facility] [address] [place] [address] Start: 06-02-[address] ASIA RICHARDSON Comment on above: Performed By: #### U A #### [place] [address] [place] [address] Arthroplasty of knee Arely NILL Colonoscopy Arely NILL Excision of cervical intervertebral disc Arely NILL Excision of melanoma Arely NILL Fusion of lateral jeff mbar interbody Arely NILL Fusion of tarsal joints Ricardo ael NILL Plan of Treatment Date Care Activity Detail Author Start: 03-04-2024 Hemolytic complement CH50 level [facility] Start: 11-19-2023 Hemolytic complement CH50 level [facility] Start: 07-18-2023 Hemolytic complement CH50 level [facility] Start: 02-19-2023 Hemolytic complement CH50 [facility] Start: 10-15-2022 Hemolytic complement CH50 [facility] Start: 09-26-2022 FUV, Provider: Kenton Lawson, Status: Pen, Time: 9:30 AM FUV, Provider: Kenton Lawson, Status: Pen, Time: 9:30 AM GA-Lazhtxptgznf-Wugsamp 5FL DO Work Phone: Start: 05-23-2022 Hemolytic complement CH50 [facility] Start: 05-02-2022 FUV, Provider: Kenton Lawson, Status: Pen, Time: 9:00 AM FUV, Provider: Kenton Lawson, Status: Pen, Time: 9:00 AM RU-Ittdeoempfaj-Qjfuanv 5FL DO Work Phone: Start: 02-15-2022 End: 02-15-2022 [facility] Work Phone: Start: 02-15-2022 Cystoscopy OR Cysto/Retro/Stent/Ston e/Holmium Laser (Right) [facility] Start: 02-15-2022 Diagnostic radiograp hy of abdomen XR KUB [facility] Start: 02-15-2022 End: 02-15-2022 Admission to same day surgery center Departed Surgical Day Care [facility] [place] Start: 02-13-2022 End: 02-13-2022 Patient encounter procedure Departed Clinical [facility] Start: 01-19-2022 End: 01-19-2022 [facility] Work Phone: Start: 01-15-2022 FUV, Provider: Kenton Lawson, Status: Pen, Time: 10:00 AM FUV, Provider: Kenton Lawson, Status: Pen, Time: 10:00 AM LP-Ivdtzsplhktl-Eobbcmb 5FL DO Work Phone: Start: 11-08-2021 Patient encounter procedure [facility] Start: 09-27-2021 End: 09-28-2022 Sodium Chloride 0.9% Injectable Flush Peripheral Line ; via Peripheral LineVolume = 10 mL IntraVenous Flush Every 8 Hours and as Needed Start: 27-Sep-2021 End: 27-Sep-2022 Ordered: 27-Sep-2021 Timothy Steinberg [facility]3] Start: 09-27-2021 End: 09-28-2022 oxyCODONE Immediate Release 10 mg Oral Tablet Every 4 Hours ; Tablet (OXYIR, ROXICODONE)DOSE = 10 mg Oral Every 4 Hours, PRN Pain - Severe (7-10) Start: 27-Sep-2021 End: 27-Sep-2022 Ordered: 27-Sep-2021 Timothy Steinberg [facility]3] Start: 09-26-2021 End: 09-27-2022 [facility]] 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 immediately Start: 09-26-2021 [facility], Provider: Sal Richardson, Status: Pen, Time: 7:30 AM [facility]: Sal Richardson, Status: Pen, Time: 7:30 AM IM-Gnxnclbuibvspg-Fon for Perioperative Med Work Phone: Start: 08-30-2021 FUV, Provider: Sal Richardson, Status: Pen, Time: 11:15 AM FUV, Provider: Sal Richardson, Status: Pen, Time: 11:15 AM IJ-Wupjwsihlrsm-Hddixu 210 Work Phone: Start: 08-30-2021 FUV, Provider: Sal Richardson, Status: Pen, Time: 11:00 AM FUV, Provider: Sal Richardson, Status: Pen, Time: 11:00 AM MB-Zzoojdvvsxxz-Mctzsz 210 Work Phone: Start: 06-09-2021 [facility]: Sal Richardson, Status: Pen, Time: 7:30 AM [facility], Provider: Sal Richardson, Status: Pen, Time: 7:30 AM MM-Pjvuphajjobzyg-Mit for Perioperative Med Work Phone: Start: 03-22-2021 [facility], Provider: Nazario Holloway, Status: Pen, Time: 9:40 AM [facility], Provider: Nazario Holloway, Status: Pen, Time: 9:40 AM [facility]Pain [facility]-Jose Work Phone: Start: 03-13-2021 FUV, Provider: Sal Richardson, Status: Pen, Time: 2:15 PM FUV, Provider: Sal Richardson, Status: Pen, Time: 2:15 PM XO-Yeihplypoalk-Zhwche 210 Work Phone: Complement C3 [Mass/volume] in Serum or Plasma [facility] Work Phone: Complement C3 [Mass/volume] in Serum or Plasma [facility] Complement C3 [Mass/volume] in Serum or Plasma [facility] Complement C3 [Mass/volume] in Serum or Plasma [facility] Complement C3 [Mass/volume] in Serum or Plasma [facility] Complement C4 [Mass/volume] in Serum or Plasma [facility] Work Phone: Complement C4 [Mass/volume] in Serum or Plasma [facility] Complement C4 [Mass/volume] in Serum or Plasma [facility] Complement C4 [Mass/volume] in Serum or Plasma [facility] Complement C4 [Mass/volume] in Serum or Plasma [facility] Hemolytic complement CH50 level [facility] Work Phone: Patient referral [facility] Work Phone: Immunizations Immunization Date Immunization Notes Care Provider Fa [facility] 03-27-2022 influenza virus vaccine, unspecified formulation Arely LOGAN [facility] 11-21-2021 SARS-CoV-2 mRNA (hahjikhsczh-bqli-rtjq ose) vaccine Arely LOGAN [facility] 09-22-2021 SARS-CoV-2 (COVID-19 ) mRNA BNT-162b2 vax Arely LOGAN General Surgery [place] 06-26-2021 [employer]Shahab P. 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 COVID-19 Vacc 30 MCG/0.3ML Intramuscular Suspension Audrey Armstrong Work Phone: [facility] 05-01-2021 influenza virus vaccine, unspecified formulation Shun MACHADO [facility] 05-01-2021 Influenza, injectabl e, [place] Canine Kidney, preservative free, quadrivalent Audrey Armstrong Work Phone: EV-Ecwsvevibdva-Ps sman 210 Work Phone: 10-06-2020 Pfizer-BioNTech COVID-19 Vacc 30 MCG/0.3ML Intramuscular Suspension No PCP None [facility] 09-13-2020 Pfizer-BioNTech COVID-19 Vacc 30 MCG/0.3ML Intramuscular Suspension No PCP None [facility] 06-24-2020 SARS-CoV-2 (COVID-19 ) mRNA BNT-162b2 vax Arely DOREEN General Surgery [place] 05-04-2020 influenza virus vaccine, unspecified formulation Shun MACHADO [facility] 05-04-2020 Influenza, injectabl e, [place]in [place] Canine Kidney, preservative free, quadrivalent No PCP None PY-Mjetjvwlnjru-To sman 210 Work Phone: 05-04-2020 pneumococcal conjuga te vaccine, 13 valent No PCP None [facility] 04-06-2020 influenza virus vaccine, unspecified formulation Shun MACHADO [facility] 04-06-2020 influenza, seasonal, injectable No PCP None MI-Kuxkigzrssey-Gi sman 210 Work Phone: 10-25-2011 hepatitis A vaccine, adult dosage No PCP None [facility] 10-25-2011 hepatitis B vaccine, pediatric or pediatric/adolescent dosage No PCP None [facility] 03-30-2011 hepatitis A vaccine, adult dosage No PCP None [facility] 03-30-2011 hepatitis B vaccine, pediatric or pediatric/adolescent dosage No PCP None [facility] 02-15-2011 hepatitis B vaccine, pediatric or pediatric/adolescent dosage No PCP None [facility] 01-20-1998 hepatitis B vaccine, adult dosage No PCP None [facility] 02-24-1997 hepatitis B vaccine, adult dosage No PCP None [facility] 11-11-1996 hepatitis B vaccine, adult dosage No PCP None [facility] 11-02-1996 TD(adult) unspecifie d formulation; Translations: [Td(adult) unspecified formulation] No PCP None [facility] NEGATED: Highlighted row has not occurred!04-15-2019 influenza virus vaccine, unspecified formulation Arely LOGAN General Surgery [place] Payers Date Payer Category Payer Self-pay [id number] 2023 Unknown [id number] 2022 Medicare [id number] 1960 Unknown [id number] 2. 840.1.690036.3.579.2.356 1961 Unknown [id number] 2.0.1.381426.3.579.2.356 1961 Unknown [id number] 2. 840.1.428853.3.579.2.356 1961 Unknown [id number] 2. 840.1.412731.3.579.2.356 1961 Unknown [id number] 2. 840.1.514646.3.579.2.356 1961 Unknown [id number] 2.16. 840.1.230097.3.579.2.356 1961 Unknown [id number] 2.16. 840.1.365172.3.579.2.356 1961 Unknown [id number] 2.16. 840.1.483720.3.579.2.356 1961 Unknown [id number] 2.16. 840.1.624365.3.579.2.356 1961 Unknown [id number] 2.16. 840.1.868750.3.579.2.356 1961 Unknown [id number] 2.16. 840.1.899631.3.579.2.356 1961 Unknown [id number] 2.16. 840.1.631356.3.579.2.356 1961 Unknown [id number] 2.16. 840.1.202020.3.579.2.356 1961 Unknown [id number] 2.16. 840.1.308181.3.579.2.356 1961 Unknown [id number] 2.16.84 0.1.374509.3.579.2.593 1961 Unknown [id number] 2.16.84 0.1.743289.3.579.2.593 1961 Unknown [id number] 2.16.84 0.1.394921.3.579.2.593 1961 Unknown [id number] 2.16.84 0.1.937778.3.579.2.593 1961 Unknown [id number] 2.16.84 0.1.278910.3.579.2.593 1961 Unknown [id number] 2.16.84 0.1.903885.3.579.2.593 1961 Unknown [id number] 2.16.84 0.1.552842.3.579.2.593 1961 Unknown [id number] 2.16.84 0.1.428343.3.579.2.593 1961 Unknown [id number] 2.16.84 0.1.247061.3.579.2.593 1961 Unknown [id number] 2.16.84 0.1.522708.3.579.2.593 1961 Unknown [id number] 2.16.84 0.1.088504.3.579.2.593 1961 Unknown [id number] 2.16.84 0.1.183047.3.579.2.593 1961 Unknown [id number] 2.16.84 0.1.288232.3.579.2.593 1961 Unknown [id number] 2.16.84 0.1.790267.3.579.2.593 1961 Unknown [id number] 2.16.84 0.1.651851.3.579.2.593 1961 Unknown [id number] 2.16.84 0.1.316201.3.579.2.593 1961 Unknown [id number] 2.16.84 0.1.922064.3.579.2.593 1961 Unknown [id number] 2.16.84 0.1.128144.3.579.2.593 1961 Unknown [id number] 2.16.84 0.1.720480.3.579.2.593 1961 Unknown [id number] 2.16.84 0.1.476279.3.579.2.1259 1961 Unknown [id number] 2.16.84 0.1.987583.3.579.2.1259 1961 Unknown [id number] 2.16.84 0.1.693139.3.579.2.1259 1961 Unknown [id number] 2.16.84 0.1.554947.3.579.2.1259 1961 Unknown [id number] 2.16.84 0.1.684478.3.579.2.1259 1961 Unknown [id number] 2.16.84 0.1.522919.3.579.2.1259 1961 Unknown [id number] 2.16.84 0.1.353177.3.579.2.1259 1961 Unknown [id number] 2.16.84 0.1.897205.3.579.2.1259 1961 Unknown [id number] 2.16.8 40.1.906360.3.579.2.727 1961 Unknown [id number] 2.16.8 40.1.084554.3.579.2.727 1959 Unknown [id number] 1959 Unknown [id number] Unknown Unknown [facility] [id number] Unknown [id number] Unknown [id number] 2.16.8 40.1.679783.3.579.2.531 Unknown [id number] 2.16.8 40.1.772401.3.579.2.531 Unknown [id number] 2.16.8 40.1.475809.3.579.2.531 Social History Date Type Detail Facility [facility] Tobacco smoking consumption unknown [facility] Start: 01-24-2022 End: 02-15-2022 Tobacco smoking status Never smoked tobacco (finding) [facility] Work Phone: Tobacco smoking status Never General Surgery [place] Sex Assigned At Male Genera l Surgery [place] Start: 1960 Sex Assigned At Male F [facility] Medical Equipment Procedure Code Equipment Code Equipment Origin al Text Equipment Identifier Dates Cystoscopy, with ureteral calculus manipulation and stent placement Polymeric ureteral stent [id number] FDA Start: 02-15-2022 Cystoscopy, with ureteral calculus manipulation and stent placement Polymeric ureteral stent [id number] FDA Start: 01-19-2022 Goals Date Patient Goal Desired Activity /State Functional Status Date Assessment Result Facility 04-08-2023 Functional Status N/A [facility] 10-16-2022 Functional Status N/A [facility] 10-02-2022 Functional Status N/A General [facility] gabrielle Schultz 01-30-2022 Functional Status N/A [facility] 01-24-2022 Functional Status N/A General Thacker gabrielle Schultz Functional observable [facility] Mental Status Date Assessment Result Facility 09-26-2021 Cognitive functions 27-Sep-19 2212:26 [facility]3] Clinical Notes 10-31-2020 to 04-08-2023 RadiologyRadiology<item><item><item><item><item><item><item> Note [...] include: ?8 oz (237 mL) of milk, pdxyqpe-qrecldjmpvdl-cpbtw milk, and calcium-fortifiedfruit juice. Calcium-fortified means that [...] ?Spinach (cooked), rhubarb, beets, sweet potatoes, and Bots[place]an chard. ?Peanuts. ?Potato chips, indonesian fries, and baked potatoes with skin on. ?Nuts and nut products. ?Chocolate. If you regularly take a diuretic medicine, make sure to eat at least 1 or 2 servings of fruits or vegetables that are high in potassium each day. These include: ?Avocado. ?Banana. ?[place], prune, carrot, or tomato juice. ?Baked potato. [...] magnesium, fish oil, or vitamin B6. Take kfjv-uuk-vwhgttq and prescription medicines only as told by [...] Casseroles. Pizza. Lasagna. Frozen meals. Potato chips. Liberian fries. The items listed above may not [...] provider. Document Revised: 02/19/2022 Document Reviewed: 02/19/2022 [employer] Patient Education 2022 [employer] Follow Up Care 10/16/2022 15:04:55 With:CHRIS RIVERA, Shun Mirza, URL Address: [address] [place], [place] [address]- When: Unknown [facility] Maddy 03-12-2023 Note HNO ID: [id number] Author: Antwan Soriano MD Service: ? Author [...] PCP: Audrey Armstrong MD [address] [facility] [address] FELLOW / RESIDENT: No fellow or resident assisted in this office visit. Antwan Soriano MD [facility] 10-16-2022 Hospital Discharge instructions Patient Education [...] include: ?8 oz (237 mL) of milk, aachpsg-olgmiocwzuwp-hktsu milk, and calcium-fortifiedfruit juice. Calcium-fortified means that [...] ?Spinach (cooked), rhubarb, beets, sweet potatoes, and Bots[place]an chard. ?Peanuts. ?Potato chips, indonesian fries, and baked potatoes with skin on. ?Nuts and nut products. ?Chocolate. If you regularly take a diuretic medicine, make sure to eat at least 1 or 2 servings of fruits or vegetables that are high in potassium each day. These include: ?Avocado. ?Banana. ?[place], prune, carrot, or tomato juice. ?Baked potato. [...] magnesium, fish oil, or vitamin B6. Take rpsk-cax-qsukywy and prescription medicines only as told by [...] Casseroles. Pizza. Lasagna. Frozen meals. Potato chips. Liberian fries. The items listed above may not [...] provider. Document Revised: 02/19/2022 Document Reviewed: 02/19/2022 [employer] Patient Education 2022 [employer]. Follow Up Care 02/19/2022 10:35:10 With:CHRIS RIVERA, Shun Mirza, URL Address: [facility] [employer] [facility] [address] [place], [place] [id number]- When: Unknown [facility] 08-16-2022 Note PROCEDURE: XR FOOT R T [...] authenticated by: LAURY ZEPEDA Date: 2022-08-16 18:55 [facility] 07-19-2022 Note PROCEDURE: XR FOOT R [...] authenticated by: LAURY ZEPEDA Date: 2022-07-19 12:30 [facility] 07-06-2022 Note PROCEDURE: XR FOOT R [...] authenticated by: LAURY ZEPEDA Date: 2022-07-06 15:41 [facility] 06-07-2022 Note PROCEDURE: XR ANKLE RT [...] by: BANDAR SAENZ Date: 2022-06-07 14:32 [facility] 06-07-2022 Note PROCEDURE: XR ANKLE RT [...] by: BANDAR SAENZ Date: 2022-06-07 14:32 [facility] 01-30-2022 Hospital Discharge instructions Patient Education [...] include: ?Spinach. ?Rhubarb. ?Beets. ?Potato chips and indonesian fries. ?Nuts. If you regularly take a diuretic medicine, make sure to eat at least 1 2 fruits or vegetables high in potassium each day. These include: ?Avocado. ?Banana. ?[place], prune, carrot, or tomato juice. ?Baked potato. [...] Casseroles. Pizza. Lasagna. Frozen meals. Potato chips. Liberian fries. Summary You can reduce your risk [...] 10/05/2011 Document Revised: 09/30/2019 Document Reviewed: 05/21/2017 [employer] Patient Education 2020 [employer]. Follow Up Care 01/24/2022 12:02:31 With:CHRIS RIVERA, Shun Mirza, URL Address: [facility] [place] [id number]- When: Unknown [facility] 09-27-2021 Note Send Summary: Discharge Summary Providers: Provider RoleProvider Name Sal Perez Nicholas PrimaryHoy, Douglas M Note Recipients: Audrey Armstrong MD - [id number] [] Discharge: Summary: Admission Date: .26-Sep-2021 06:01:00 [...] floor. 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 [place] [facility] [place] [address] [address] [facility] ON 10/18/2021 AT 0930 WITH KENTON SANTIAGO. REHAB FACILITIES OR HOME CARE MAY REMOVE ANTONIO OR SUTURES. Wound Site: BACK (Lumbar Spine) Wound Type: surgical incision Change Dressing: daily Cleanse With: soap and water Cover With: abdominal dressing Tape With: paper tape Instructions: no lotions, creams, or tub soaks Other Instructions: PLEASE HAVE ANTONIO REMOVED IN 3 WKS. AT [facility] [address] [address] [address] [facility] 5TH FLOOR ON 10/18/2021 AT 0930 [...] to Schedule in: 6 weeks, PLEASE CALL [phone] TO SCHEDULE YOUR APPOINTMENT FOR 5-6 WEEKS FOLLOWING YOUR SURGERY. Location: [facility] [address] [facility] [place] [address] [place] [address] [place] [address]/ [facility] [address], Phone Number: Office: (September,/[place]) - [phone] Discharge Medications: Home Medication NIFEdipine 30 mg [...] tab(s) orally every (more content not included)... [facility]3] 09-27-2021 Note Rehab: Info: Mode of Treatmentoccupational therapy; co-evaluation with PT for pt safety and to optimize pt's therapeutic potential Time IN10:00 Time OUT10:27 Total Treatment [id number] Patient in ... at end of sessionchair; alarm on Communicated with ... at end of sessionbedside nurse Patient Effortexcellent Symptoms Noted During/After Treatmentnone Patient Profile Reviewedyes Onset of Illness/Injury or Date of [id number] Reason for ReferralXLIF L3/4, 4/5;2. Navigated percutaneous [...] WFL Mobility/Tone: Bed Mobility Assessment/Interventionssupine to sit Aeocvf-oy-Aqe [place] (Bed Mobility)standby assist; verbal cues Assistive Device (Bed Mobility)bed rails Comment, Bed MobilityVia log rolling technique Transfer Assessment/Interventionssit to stand transfer; stand to sit transfer Sit-Stand [place] (Transfers)standby assist; verbal cues Sit-Stand Assistive Device (Transfers)no AD Stand-Sit [place] (Transfers)standby assist; verbal cues Stand-Sit Assistive Device (Transfers)no AD Safety Issues Impacting Function (Mobility)insight into deficits/self awareness Impairments Impacting Function (Mobility)balance; pain ActivityPt completed functional household distance with SBA for safety (pt declined use of device) ADL: BADL Assessment/Interventionlower body dressing; grooming; toileting [place] Level (Lower Body Dressing)pants/bottoms; moderate assist (50% patient effort) Position (Lower Body Dressing)edge-of-bed sitting [place] Level (Grooming)supervision Position (Grooming)standing Comment (Grooming)Standing oral care at sink [place] Level (Toileting)supervision Position (Toileting)standing Motor: Sitting, Static (Balance)good balance Sitting, Dynamic (Balance)good balance Lfg-da-Bacbc (Balance)fair balance Standing, Static (Balance)fair balance Standing, [...] Total Score17 Short Term Goals: Transfer: Established [id number] Transfer: Transfer Type Kahyqez-zm-lgpzc/jswqu-pz-wlp; (more content not included)... [facility] ([facility]3] 09-26-2021 Note Post Operative Note: PreOp Diagnosis: Lumbar stenosis, spondylolisthesis L3-5 Post-Procedure Diagnosis: Lumbar stenosis, spondylolisthesis L3-5 Procedure: ALIF via extreme lateral approach L3/4, L4/5 with cage x 2 PSF with instrumentation L3-5 Surgeon: Dr. Richardson Resident/Fellow/Other Director Dermatology: Renny Steinberg Estimated Blood Loss (mL): 150 [...] Last Updated: 04-Oct-2021 15:17 by Sal Richardson) [facility] ([facility]3] 09-26-2021 History of Present illness Narrative Jay is a pleasant 62-year-old counr-lesl-fgwkhmwi male who presents today with his for [...] not corrected for spelling or grammatical errors. FY-Vkkxutdfmivl-Rsxvxbz 5FL DO Work Phone: 09-26-2021 Note History [...] the note. I personally evaluated the patient [id number] Electronic Signatures: Sal Richardson) (Signed 29-Sep-2021 11:39) Authored: Note Completion Co-Signer: History of Present Illness, Allergies, Home Medication Review, Impression/Procedure, ERAS, Physical Exam, Consent, Note Completion Timothy Steinberg (Resident)) (Signed 26-Sep-2021 05:59) Authored: History of Present Illness, Allergies, Home Medication Review, Impression/Procedure, ERAS, Physical Exam, Consent, Note Completion Last Updated: 29-Sep-2021 11:39 by Sal Richardson) [facility]3] 08-25-2021 Reason for referral (narrative) Reason for Referral: XLIF L3/4, 4/5;2. 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 Richardson Resident/Fellow/Other Director Dermatology: Skip/ Katalina Procedure: anterior cervical discectomy/ decompression, [...] Last Updated: 27-Jun-2021 14:14 by Sal Richardson) [facility]3] 06-21-2021 Note History & Physical R eviewed: [...] the note. I personally evaluated the patient [id number] Electronic Signatures: Sal Richardson) (Signed 27-Jun-2021 13:45) Authored: Note Completion Co-Signer: History & Physical Reviewed, ERAS, Consent, Note Completion Cheikh August (Resident)) (Signed 21-Jun-2021 06:23) Authored: History & Physical Reviewed, ERAS, Consent, Note Completion Last Updated: 27-Jun-2021 13:45 by Sal Richardson) [facility]3] 12-22-2020 History of Present illness Narrative Jay [...] not corrected for spelling or grammatical errors. MP-Dodmfopsbnpq-Udwtnx 210 Work Phone: 10-31-2020 History of Present illness Narrative 60 yr old male with back pain. 10/31 [facility] Work Phone: 10-31-2020 History of Present illness [...] foot surgeries and total knee replacement. [facility] Work Phone: Evaluation + Plan note Future Appointments Appointment Date:01/30/2022 09:15:00 AM Scheduled Provider:Shun MACHADO MD Location:[facility] Appointment Type:URO Office Visit Appointment Date:07/31/2022 02:00:00 PM Scheduled Provider:[facility]AN [facility]:[place] [address] General [facility] [place] Evaluation + Plan note Future Appointments Appointment Date:07/31/2022 02:00:00 PM Scheduled Provider:Arely LOGAN MD Location: [place] Appointment Type:[place] [address] [facility] Evaluation + Plan note Future Appointments Appointment Date:10/16/2022 02:15:00 PM Scheduled Provider:Shun MACHADO MD Location:[facility] Appointment Type:URO Office Visit Future Scheduled TestsXR Abdomen 1 View 02/19/22 [facility] [place] Evaluation + Plan note Future Appointments Appointment Date:02/22/2023 10:45:00 AM Scheduled Provider:Shun MACHADO MD Location:[facility] Appointment Type:URO Office Visit Future Scheduled TestsXR Abdomen 1 View 02/19/22 [facility] Evaluation + Plan note Future Appointments Appointment Date:04/13/2024 09:15:00 AM Scheduled Provider:Shun MACHADO MD Location:[facility] Appointment Type:URO Office Visit [facility] Evaluation note Neurological: alert and oriented [id number]: Spine Exam:Dressings CDINo bruising, swelling, or erythemaL1: [...] appearing, no acute distress resting in bed [facility]3] Evaluation note No assessment information availa [facility] Work Phone: History of Present illness Narrative [...] not corrected for spelling or grammatical errors. XZ-Oxalafuevieg-Hdezerb 5FL DO Work Phone: Hospital course Narrative No data available for this section [facility] [place] [facility] Discharge instructions Activity:activity as tolerated and [...] HAVE ANTONIO REMOVED IN 3 WKS. AT [facility] [address] [facility] 5TH FLOOR ON 10/18/2021 AT 0930 WITH KENTON SANTIAGO.REHAB FACILITIES OR HOME CARE MAY REMOVE ANTONIO OR SUTURES.Wound Care 2:Wound Site: BACK (Lumbar Spine)Wound Type: surgical incisionChange Dressing: dailyCleanse With: soap and waterCover With: abdominal dressingTape With: paper tapeInstructions: no lotions, creams, or tub soaksOther Instructions: PLEASE HAVE ANTONIO REMOVED IN 3 WKS. AT [facility] [address] [facility] 5TH FLOOR ON 10/18/2021 AT 0930 [...] to Schedule in: 6 weeks, PLEASE CALL [phone] TO SCHEDULE YOUR APPOINTMENT FOR 5-6 WEEKS FOLLOWING YOUR SURGERY.Location: [facility] [address] 5TH FLOOR OR [address] [facility] [address], [phone] Number: Office: (September,./[place]) - [phone]: Please Call Emmie Gallagher RN at [phone] For Any Post-Op Questions [facility] Discharge instructions No data available for this section General Surgery [place] note No data available for this section General Surgery [place] Summary Purpose Family History No Family History Records Found Relationship Condition Age at Onset Recorded Date/T mariana Not Specified Hypertension Unknown father Malignant neoplasm Unknown Relationship Condition Age at Onset Recorded Date/T mariana mother Hypertension Unknown father Malignant neoplasm Unknown Advance [...] weeks. He lives far away, in the [facility]. If he gets better with the injections, perhaps we can watch mntn-mty-bqo and this is obviously what we are [...] weeks. He lives far away, in the [facility]. If he gets better with the injections, perhaps we can watch aoys-dsv-aej and this is obviously what we are [...] spine from 04/12/2021 is available from the [facility] on a CD. This shows evidence of [...] section and content) DATE CREATED AUTHOR 01/14/2021 [facility] DATE CREATED AUTHOR AUTHOR'S ORGANIZ ATION 03/11/2021 [facility] DATE CREATED AUTHOR AUTHOR'S ORGANIZ ATION 08/06/2021 [facility] DATE CREATED AUTHOR AUTHOR'S ORGANIZ ATION 05/03/2022 [employer] DATE CREATED AUTHOR AUTHOR'S ORGANIZ ATION 05/05/2022 [facility] DATE CREATED AUTHOR AUTHOR'S ORGANIZ ATION 11/30/2022 [facility] [place] [facility] DATE CREATED AUTHOR AUTHOR'S ORGANIZ ATION 03/14/2023 [facility] DATE CREATED AUTHOR AUTHOR'S ORGANIZ ATION 08/28/2023 [facility] DATE CREATED AUTHOR AUTHOR'S ORGANIZ ATION 03/17/2024 [facility] DATE CREATED AUTHOR AUTHOR'S ORGANIZ ATION 03/29/2024 [facility] <item> Privacy Markings (unrecogniz ed section and content) Section Author: Arthur Patten PROHIBITION ON REDISCLOSURE OF CONFIDENTIAL INFORMATION This notice accompanies a disclosure of information concerning a client made to you with the consent of such client. Care Team (unrecognized sect ion and content) Team Status: Active Member Role Status Gary Armstrong MD Primary Care Provider Active Team Status: Active Member Role Status Gary Armstrong MD Primary Care Provider Active Start: December 27, 2023 Honorio Luo DO Attending Provider Active Sta rt: December 27, 2023 Team Status: Inactive Member Role Status Gary Armstrong MD Primary Care Provider Active Start: March 04, 2024 End: March 04, 2024 TAD Nielsen Attending Provider Active Start: March 04, 2024 End: March 04, 2024 Team Status: Inactive Member Role Status Gary Armstrong MD Primary Care Provider Active Shun Machado MD Attending Provider Active Team Status: Inactive [...] BE BASED ON THE PRIMARY CLINICAL RECORDS. [employer] provides no warranty or guarantee of the accuracy or completeness of information in this document.
== END 2024-03-31 07:58 | disposition home or self-care (01) ==
LOC: CT 07:57
PROVIDERS: PCP Family Medicine; Visit Provider Podiatrist Foot & Ankle Surgery
DX: M96.0 Pseudarthrosis after fusion or arthrodesis (principal)
CPT/HCPCS: 73700

== ENCOUNTER 2024-04-08 14:51 | Outpatient (OUT) | payer MEDICARE, SELFPAY ==
--- NOTE | 2024-04-08 15:10 | XR_ITS ---
[address] [address] Patient Name: RG SIMEON MRN: [id number] date: 1960 Sex: M Assigned Patient Location: LAB Current Patient Location: Accession/Order Number: [id number] Exam Date: 04/08/2024 15:16 Report Date: 04/10/2024 07:23 At the request of: SHUN PEREZ Procedure: XR abdomen 1V EXAMINATION: XR abdomen 1V HISTORY: Kidney Stone COMPARISON: 04/02/2023 FINDINGS: KIDNEY/URETER - RIGHT: No visible renal or ureteral calcifications. KIDNEY/URETER - LEFT: No visible renal or ureteral calcifications. PELVIS: No visible ureteral calcifications. Any visible calcifications favor phleboliths. BOWEL: No abnormal dilation or deviation. BONES: Moderate to severe degenerative changes. Bilateral transpedicular fusion L3-L5 with interbody spacers OTHER: Negative. No abnormal gaseous collections. XR/XR abdomen 1V IMPRESSION: No definite urinary tract calculi Electronically authenticated by: BANDAR SAENZ Date: 04/10/2024 07:23
[2024-04-08 15:55] LABS: Prostate Specific Antigen Dx 1.59 ng/mL (<=4.00)
== END 2024-04-08 14:52 | disposition home or self-care (01) ==
PROVIDERS: PCP Family Medicine; Visit Provider Urology
DX: N20.0 Calculus of kidney (principal); Z12.5 Encounter for screening for malignant neoplasm of prostate
CPT/HCPCS: 36415; 74018; 84153

== ENCOUNTER 2024-06-10 08:29 | Outpatient (OUT) | payer MEDICARE, SELFPAY ==
--- NOTE | 2024-06-10 08:32 | XR_ITS ---
The [address] [address] Patient Name: RG SIMEON MRN: [id number] date: 1960 Sex: M Assigned Patient Location: [facility] Current Patient Location: [facility] Accession/Order Number: [id number] Exam Date: 06/10/2024 08:35 Report Date: 06/10/2024 14:07 At the request of: JENI SAEED Procedure: XR foot RT min 3V PROCEDURE: XR foot RT min 3V HISTORY: Primary Osteoarthritis Right Ankle Foot COMPARISON: XR foot right 03/25/2024 FINDINGS: BONES:Posterior calcaneal osteotomy and fusion. Mechanical fusion of the medial midfoot via screws, plates, bone staple, and rods. 1 mm backing out of one of the distal screws within the dorsal plate. Prior bone harvesting from distal tibia. SOFT TISSUES:No visible soft tissue swelling. EFFUSION:None visible. OTHER: Negative. XR/XR foot RT min 3V IMPRESSION: 1. Stable surgical changes other than slight backing out of one of the screws within the distal aspect of the dorsal plate. Electronically authenticated by: LAURY ZEPEDA Date: 06/10/2024 14:07
== END 2024-06-10 08:30 | disposition home or self-care (01) ==
LOC: RAD 08:29
PROVIDERS: PCP Family Medicine; Visit Provider Podiatrist Foot & Ankle Surgery
DX: M19.071 Primary osteoarthritis, right ankle and foot (principal); M24.674 Ankylosis, right foot; Z98.890 Other specified postprocedural states
CPT/HCPCS: 73630

== ENCOUNTER 2024-07-13 10:40 | Outpatient (OUT) | payer MEDICARE, SELFPAY ==
--- NOTE | 2024-07-13 | XR_ITS ---
The [address] [address] Patient Name: RG SIMEON MRN: [id number] date: 1960 Sex: M Assigned Patient Location: Current Patient Location: Accession/Order Number: [id number] Exam Date: 07/13/2024 10:55 Report Date: 07/14/2024 11:16 At the request of: LAURY RUSSELL Procedure: XR shoulder JOMAR min 2V EXAM: XR shoulder JOMAR min 2V. HISTORY: BILATERAL SHOULDER PAIN. COMPARISON: None. TECHNIQUE: Routine views of the bilateral shoulders were obtained. FINDINGS/IMPRESSION: 1. There is no evidence of acute fracture or subluxation. 2. There is severe bilateral joint space narrowing with marginal spurring at the glenohumeral and acromioclavicular joints indicating severe osteoarthritis. Electronically authenticated by: YAYO ENRIQUEZ Date: 07/14/2024 11:16
== END 2024-07-13 10:41 | disposition home or self-care (01) ==
LOC: EC 10:41
PROVIDERS: PCP Family Medicine; Visit Provider Orthopaedic Surgery
DX: M25.511 Pain in right shoulder (principal); M25.512 Pain in left shoulder; M19.012 Primary osteoarthritis, left shoulder; M19.011 Primary osteoarthritis, right shoulder
CPT/HCPCS: 73030

== ENCOUNTER 2024-07-23 09:38 | Outpatient (OUT) | payer MEDICARE, SELFPAY ==
--- NOTE | 2024-07-23 09:44 | MR_ITS ---
[address] [address] Patient Name: RG SIMEON MRN: [id number] date: 1960 Sex: M Assigned Patient Location: MRI Current Patient Location: Accession/Order Number: [id number] Exam Date: 07/23/2024 09:54 Report Date: 07/24/2024 06:11 At the request of: BASILIA MEADOWS Procedure: MR shoulder RT wo con EXAMINATION: MR shoulder RT wo con HISTORY: Acute Pain Of right Shoulder COMPARISON: No relevant comparison available. TECHNIQUE: A variety of imaging planes and parameters were utilized for visualization of suspected pathology. Imaging was performed without or with contrast as indicated by examination type. FINDINGS: ROTATOR CUFF REGION CUFF TENDONS: Prominent T2 signal within the supraspinatus tendon without full-thickness tear or disruption. CUFF MUSCLES: Normal appearing muscles. DELTOID: Normal. No significant atrophy or tear. LONG BICEPS TENDON: Normal. No abnormal signal, attrition, or tear. LABRUM/BICEPS ANCHOR SUPERIOR: No visible labral tear or biceps anchor pathology. ANTERIOR/INFERIOR: No visible tear or attrition. POSTERIOR: No posterior labrum abnormality. CAPSULE No visible capsular laxity or thickening. AC JOINT REGION AC JOINT: Moderate-marked osteoarthropathy with moderate narrowing of the underlying coracoacromial arch. AC LIGAMENTS: Normal acromioclavicular ligament. CC LIGAMENTS: Normal coracoclavicular ligaments. ACROMION: Normal horizontal (Type I) configuration. SUBACROMIAL BURSA: Small amount of fluid within bursa. HYALINE CARTILAGE: Joint space narrowing with moderate cartilage thinning. OTHER BONES: Normal proximal humerus, glenoid, and coracoid. OTHER OBSERVATIONS: Negative. No other significant findings or glenohumeral effusion. MR/MR shoulder RT wo con IMPRESSION: 1. Partial tear versus high-grade strain of the supraspinous tendon with small amount of fluid within subacromial-subdeltoid bursa. 2. Moderate to marked degenerative changes of acromioclavicular joint which would predispose to rotator cuff injury. 3. Glenohumeral joint space narrowing secondary to cartilage thinning. Electronically authenticated by: LAURY ZEPEDA Date: 07/24/2024 06:11
--- OUTSIDE RECORDS SUMMARY | 2024-07-23 09:58 | XMS_ITS | CCD ---
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 SAL COLEMAN Attending Unavail able Shevcmartin, Mr. Suarez Attending Unavailabl e Audrey Armstrong Primary Care Unavailable [place] Audrey Arely Primary Care Unavailable Shevchik, Mr. Suarez Attending Unavailabl e Audrey Armstrong Primary Care Unavailable Renny, Mr. uSarez Attending Unavailabl e Self, Referral Referring Unavailable Audrey Armstrong Primary Care Unavailable Dr. SAL RICHARDSON Attending Unavail able Shevchik, Mr. Suarez Attending Unavailabl e Hoy Audrey Arely Primary Care Unavailable [place]vchik, Mr. Suarez Referring Unavailabl e Shevchik, Mr. Suarez Referring Unavailabl e Anthonyy Audrey Arely Primary Care Unavailable Shevckaylak, Mr. Suarez Attending Unavailabl e Shevchik, Mr. Suarez Referring Unavailabl e Shevchik, Mr. Suarez Attending Unavailabl e Audrey Armstrong Primary Care Unavailable Hoy, Audrey Arely Primary Care Unavailable UNKNOWN, UNKNOWN Referring Unavailable DEBRA, Dr. SAL COLEMAN Attending Unavail able Audrey Armstrong Primary Care Unavailable DEBRA, Dr. SAL COLEMAN Attending Unavail able DEBRA, Dr. SAL COLEMAN Referring Unavail able DEBRA, Dr. SAL COLEMAN Admitting Unavail able DEBRA, Dr. SAL COLEMAN Attending Unavail able Arturo Audrey Arely Primary Care Unavailable Audrey Armstrong Primary Care Unavailable DEBRA, Dr. SAL COLEMAN Attending Unavail able DEBRA, Dr. SAL COLEMAN Referring Unavail able DEBRA, Dr. SAL COLEMAN Admitting Unavail able DEBRA, Dr. SAL COLEMAN Attending Unavail able Arturo Audrey Arely Primary Care Unavailable DEBRA, Dr. SAL COLEMAN Attending Unavail able MD Audrey Armstrong Primary Care Provider [phone] MD Dmitriy De Leon Attending Provider MD Audrey Armstrong Primary Care Provider [phone] MD Dmitriy De Leon Attending Provider JENI SAEED Admitting Unavailable ZIEBER, DR LAURY [...] Care Unavailable HIGHLANDER, JENI Albrecht Admitting Unavailable HIGHLANDERJENI Attending Unavailable ZIEBER, DR LAURY Costello Consulting [...] HANCOCK Consulting Unavailable GEMBUS, LAKIA Consulting Unavailable SEAMON, CINDY Tejeda Consulting Unavailable OMAR, WADE Attending [...] HOY ., DR VENTURA Primary Care Unavailable HOPLAND, DR BANDAR Sheppard Consulting Unavailable HOY ., [...] SNYDER Consulting Unavailable HOY ., DR VENTURA Admitting [...] Unavailable MD Audrey Armstrong Primary Care Provider MD Hudson De Leon Attending Provider ANTWAN SORIANO Attending Unavailable AUDREY ARMSTRONG Primary Care Unavailable MD Audrey Armstrong Primary Care Provider [phone] TAD Manriquez Attending Provider STEFANIE KNIGHT Attending Unavailable HURST, FIDEL Referring Unavailable KELBLEY, GENE Attending Unavailable HURST, FIDEL Referring Unavailable KELBLEY, GENE Attending Unavailable HURST, FIDEL Referring Unavailable KELBLEY, GENE Attending Unavailable HURST, FIDEL Referring Unavailable BLACKSTONALLISTEFANIE T Attending Unavailable HURST, FIDEL Referring Unavailable KELBLEY, GENE Attending Unavailable HURST, FIDEL Referring Unavailable PB MAY Attending Unavailable HURST, FIDEL Referring Unavailable STEFANIE KNIGHT Attending Unavailable CAMILLEST, FIDEL Referring Unavailable MD Audrey Armstrong Primary Care Provider TAD Manriquez Attending Provider MD Audrey Armstrong Primary Care Provider [phone] TAD Manriquez Attending Provider Sabrina Manriquez Attending Unavailable Audrey Armstrong Primary Care Unavailable ObermeySabrina cabrera Admitting Unavailable Obermeydeborah Sabrina L Admitting Unavailable ObermeySabrina cabrera Attending Unavailable Audrey Armstrong Primary Care Unavailable Obermeydeborah Sabrina L Admitting Unavailable ObSabrina almeida Attending Unavailable Audrey Armstrong Primary Care Unavailable Shun MACHADO Attending Unavailable Shun MACHADO Attending Unavailable Fidel Narayan Attending Unavailable Fidel Narayan Referring Unavailable Audrey Armstrong Primary Care Unavailable Allergies Allergy Classification Reported Allergen(s) Allergy Type Date of Onset Reaction(s) Facility (17 sources) Penicillins; Translations: [Penicillins] Allergy to drug (finding) 7 Rash [facility] Work Phone: (7 sources) Penicillin; Translations: [penicillin] Drug Allergy Eruption of skin (disorder) General [facility] [place] (2 sources) oxyCODONE Drug Allergy 1 [facility] (2 sources) Penicillins Drug allergy (disorder) 7 [facility] (1 source) Penicillins Drug allergy (disorder) 2 [facility] Medications Current Medications Medication Drug Class(es) Dates Sig (Normalized) Sig (Original) acetaminophen 325 mg / oxyCODONE hydrochloride 5 mg oral tablet (2 sources) Opioid Agonist Start: 01-19-2022 take 1 tablet by mouth twice daily Percocet 5 mg-325 mg oral tablet 1 tab(s), Oral, BID, Refill(s) 0 Start Date: 01/19/22 Status: Ordered Ascorbic Acid (1 source) Vitamin C Start: 04-13-2024 Vitamin C Daily, Refills(s) 0 Start Date: 04/13/24 Status: Ordered Celebrex (2 sources) Nonsteroidal Anti-inflammatory [...] dairy products, calcium, zinc, and/or iron-containing products Cranberry preparation (1 source) Non-Standardized Food Allergenic Extract, Non-Standardized Plant Allergenic Extract Start: 04-13-2024 cranberry Refill(s) 0 Start Date: 04/13/24 Status: Ordered diclofenac sodium 75 mg delayed release oral tablet (3 sources) Nonsteroidal Anti-inflammatory Drug Start: 04-13-2024 diclofenac sodium 75 mg Oral EC Tab 75 mg = 1 tab(s), Refills(s) 0 Start Date: 04/13/24 Status: Ordered Start: 05-02-2022 Diclofenac Sod ium 1 % External Gel APPLY SPARINGLY TO AFFECTED AREA(S) ONCE DAILY Quantity: 1 Refills: 2 Ordered: 02-May-2022 Kenton Lawson PA-C Start : 02-May-2022 Active hydroxychloroquine sulfate 200 mg oral tablet (15 sources) Antimalarial, Antirheumatic Agent Start: 04-15-2019 End: 02-15-2022 take 1 tablet by mouth twice daily hydroxychloroquine 200 mg Tab 200 mg = 1 tab(s), Oral, BID Start Date: 04/15/19 Status: Ordered irbesartan 300 mg oral tablet (13 sources) Angiotensin 2 Receptor Jennifer Start: 04-13-2024 irbesartan 300 mg Tab 300 mg = 1 tab(s), Refills(s) 0 Start Date: 04/13/24 Status: Ordered Start: 01-16-2022 take 300 mg by mouth once daily at lunch Irbesartan Active 300 MG PO Daily with lunch January 17, 2022 12:00am NIFEdipine 30 mg oral tablet (15 sources) Dihydropyridine Calcium Channel Jennifer Start: 01-19-2022 take 1 tablet by mouth once daily NIFEdipine 30 mg ER Tab 30 mg = 1 tab(s), Oral, Daily, Refills(s) 0 Start Date: 01/19/22 Status: Ordered Start: 01-17-2022 take 30 mg by mouth once daily in the morning Nifedipine Active 30 MG PO Every morning January 17, 2022 12:00am pantoprazole 40 mg delayed release oral tablet (15 sources) Proton Pump Inhibitor Start: 04-15-2019 take 1 tablet by mouth once daily Protonix 40 mg Tab-DR 40 mg = 1 tab(s), Oral, Daily Start Date: 04/15/19 Status: Ordered potassium citrate 10 meq extended release oral tablet (2 sources) Start: 10-16-2022 End: 10-11-2023 potassium CITRATE 10 mEq ER Tab 20 mEq, 2 tab(s), Oral, BID for 30 day(s), 120 tab(s), Refill(s) 11, [facility], 170, cm, 10/16/22 14:31:00 EDT, Height/Length Dosing, 104.3, kg, 10/16/22 14:31:00 EDT, Weight Dosing Start Date: 10/16/22 Stop Date: 10/11/23 Status: Ordered tiZANidine 4 mg oral tablet (15 sources) Central alpha-2 Adrenergic Agonist Start: 01-19-2022 [...] Sal Richardson MD Start : 03-Aug-2021 Active Vital-D (1 source) Start: 04-13-2024 Vital-D Oral, Daily, Refill(s) 0 Start Date: 04/13/24 Status: Ordered Zinc (1 source) Start: 04-13-2024 Zinc Refills(s ) 0 Start Date: 04/13/24 Status: Ordered Completed/Discontinued Medications Medication Drug Class(es) Dates Sig [...] Quantity: 1 Refills: 0 Ordered: 19-Sep-2021 Maik PAIGE, Jacquie Start : 19-Sep-2021 Active Start: 06-02-2021 Hibiclens 4 % External Liquid USE DIRECTED as preop shower Quantity: 1 Refills: 0 Ordered: 02-Jun-2021 Azucena Ayala Start : 02-Jun-2021 Active gabapentin 300 mg oral capsule (15 sources) Anti-epileptic Agent Start: 03-16-2021 take 1 tablet by mouth once Gabapentin 300 MG Oral Capsule Take 1 Tab by mouth daily per titration schedule, scheduled faxed to pharmacy Quantity: 180 Refills: 0 Ordered: 16-Mar-2021 Nazario Holloway MD Start : 16-Mar-2021 Active ketorolac tromethamine 10 mg oral tablet (9 [...] DAILY Quantity: 1 Refills: 0 Ordered: 19-Sep-2021 Maik PAIGE, Jacquie Start : 19-Sep-2021 Active Start: 06-02-2021 Mupirocin [...] 2022 7:49am tadalafil 10 mg oral tablet (3 sources) Phosphodiesterase 5 Inhibitor Start: 10-16-2022 tadalafil 10 mg Tab 10 mg = 1 tab(s), Oral, As Directed, PRN for erectile dysfunction, Take 1 tab by mouth one to two hours prior to sexual activity., # 30 tab(s), Refills(s) 3, Pharmacy: [id number], 170, cm, 10/16/22 14:31:00 EDT, Height/Length [...] quadrant pain] Onset: 12-09-2021 Episodic Allergic reactions (7 sources) Eczema; Translations: [Allergy status to penicillin] [...] SYS] Onset: 09-03-2022 Episodic Diverticulosis and diverticulitis (12 sources) Diverticular disease; Translations: [Diverticulitis] Resolved: 04-15-2019 04-15-2019 Chronic Esophageal disorders (2 sources) Gastro-esophageal reflux disease without esophagitis; Translations: [Gastro-esophageal reflux disease without esophagitis] Onset: 09-27-2021 Chronic Essential hypertension (8 sources) Hypertensive disorder; Translations: [Essential (primary) hypertension] Onset: 09-27-2021 04-15-2019 Chronic Genitourinary symptoms and ill-defined conditions (3 sources) Abnormal urinary product; Translations: [Hypocitraturia] Onset: 10-16-2022 Episodic Headache; including migraine (6 sources) Migraine 01-19-2022 Chronic Hyperplasia of prostate (10 sources) Benign prostatic hyperplasia; Translations: [Benign prostatic hypertrophy without outflow obstruction] Onset: 01-30-2022 04-15-2019 Chronic Melanomas of skin (12 sources) Malignant melanoma of back; Translations: [Malignant melanoma of skin] Resolved: 05-15-2019 05-16-2019 Chronic Nausea and vomiting (8 sources) Nausea; Translations: [Nausea] Onset: 01-11-2022 Episodic Neoplasms of unspecified nature or uncertain behavior (6 sources) Neoplasm of uncertain behavior of skin 04-15-2019 Episodic Osteoarthritis (11 sources) Osteoarthritis; Translations: [Primary osteoarthritis, right ankle and foot] Onset: 08-16-2022 04-15-2019 Chronic Other acquired deformities (1 source) Contracture, right ankle; Translations: [CONTRACTURE RIGHT ANKLE] Onset: 06-21-2022 Chronic Other acquired deformities (17 sources) Lumbar spondylolisthesis; Translations: [Acquired spondylolisthesis] Onset: 09-19-2021 Episodic Other acquired deformities (2 sources) Spondylolisthesis, lumbar region; Translations: [Spondylolisthesis, lumbar region] Onset: 09-19-2021 Episodic Other circulatory disease (6 sources) Raynaud's disease 01-19-2022 Chronic Other circulatory [...] abnormalities] Onset: 01-24-2022 Episodic Other gastrointestinal disorders (6 sources) Loose stool 01-24-2022 Episodic Other hereditary and degenerative nervous system conditions (6 sources) Essential tremor 01-19-2022 Chronic Other hereditary and degenerative nervous system conditions (1 source) Myelopathy in diseases classified elsewhere; Translations: [Myelopathy in diseases classified elsewhere] Onset: 06-21-2021 Chronic Other inflammatory condition of skin (6 sources) Lupus erythematosus 04-15-2019 Chronic Other male genital disorders (6 sources) Male erectile dysfunction, unspecified; Translations: [Erectile dysfunction] Onset: 10-16-2022 Chronic Other nervous system disorders (1 source) Chronic pain syndrome; Translations: [Chronic pain syndrome] Onset: 09-19-2021 Chronic Other nervous system disorders (6 sources) Tremor 04-15-2019 Episodic Other non-traumatic joint disorders (1 source) Osteophyte, vertebrae; Translations: [Osteophyte, vertebrae] Onset: 06-21-2021 Chronic Other nutritional; endocrine; and metabolic disorders (10 sources) Body mass index 30+ - obesity [...] conditions (not mental disorders or infectious disease) (9 sources) Abnormal findings diagnostic imaging of liver+biliary [...] ureter] Onset: 01-30-2022 Episodic Residual codes; unclassified (4 sources) Family history of prostate cancer 02-19-2022 Episodic Residual codes; unclassified (3 sources) Family history of cancer; Translations: [Family [...] (suspected) exposure to COVID-19] Onset: 06-21-2021 Unclassified (3 sources) Urine finding 10-16-2022 Unclassified (1 source) [...] 09-27-2021 Episodic Other aftercare (2 sources) Other terminal supervisor (current) drug therapy; Translations: [Other terminal supervisor (current) drug therapy] Onset: 06-02-2021 Episodic Other [...] Test Name Value Interpretation Reference Range Facility Ambulatory Visit Summaryon 1 Ambulatory Visit Summary Ambulatory Visit Summary JAY CARR :1960 Visit Date:04/13/2024 Ambulatory Visit Instructions Your Diagnosis History of kidney stones BPH (benign prostatic hyperplasia) Hypocitraturia Erectile dysfunction Family history of prostate cancer in father Tests Performed XR Abdomen 1 View -- Results Pending -- Please visit your patient portal for your results or contact your primary care physician. Your Care Team Attending Physician - Shun MACHADO MD Primary Care Physician - Audrey Armstrong MD This Is Your Medications List tadalafil (tadalafil 10 mg Tab) Contact prescribing physician if questions or concerns NIFEdipine (NIFEdipine 30 mg ER Tab) ascorbic acid (Vitamin C) cranberry diclofenac (diclofenac sodium 75 mg Oral EC Tab) hydroxychloroquine (hydroxychloroquine 200 mg Tab) irbesartan (irbesartan 300 mg Tab) multivitamin with minerals (Vital-D) pantoprazole (Protonix 40 mg Tab-DR) tizanidine (tiZANidine 4 mg Tab) zinc sulfate (Zinc) Procedures Performed ESWL - Extracorporeal shockwave lithotripsy for renal calculus (01/19/2022), Lithotripsy (01/19/2022), Arthroplasty of knee, Cervical discectomy, Colonoscopy, Excision of melanoma, Fusion of tarsal joints, XLIF - extreme lateral lumbar interbody fusion. Discharge Vitals Temperature (Temporal Artery) 37 ?C Heart Rate (Peripheral) 78 Respiratory Rate 16 Blood Pressure 137/88 Height 170 cm Height 67 in Weight 106 kg Weight 233.2 lb BMI 36.68 What to do next Scheduled Follow-Up Appointments Saturday 8:15 AM EDT With: Shun MACHADO MD [facility] [address] [place] [address]- You Need to Schedule the Following Appointments Follow Up with CHRIS RIVERA, BREN Rodriguez When: Where: [address] [address]- Medications What How Much When Instructions Unchanged tadalafil (tadalafil 10 mg Tab) 1 Tablets By Mouth As Directed as needed for for erectile dysfunction Take 1 tab by mouth one to two hours prior to sexual activity. Unchanged ascorbic acid (Vitamin C) Every day Contact prescribing physician if questions or concerns Unchanged cranberry Contact prescribing physician if questions or concerns Unchanged diclofenac (diclofenac sodium 75 mg Oral EC Tab) 1 Tablets Contact prescribing physician if questions or concerns Unchanged hydroxychloroquine (hydroxychloroquine 200 mg Tab) 1 Tablets By Mouth 2 times a day Contact prescribing physician if questions or concerns Unchanged irbesartan (irbesartan 300 mg Tab) 1 Tablets Contact prescribing physician if questions or concerns Unchanged multivitamin with minerals (Vital-D) By Mouth Every day Contact prescribing physician if questions or concerns Unchanged NIFEdipine (NIFEdipine 30 mg ER Tab) 1 Tablets By Mouth Every day Contact prescribing physician if questions or concerns Unchanged pantoprazole (Protonix 40 mg Tab-DR) 1 Tablets By Mouth Every day Contact prescribing physician if questions or concerns Unchanged tizanidine (tiZANidine 4 mg Tab) 2 Tablets By Mouth At bedtime Contact prescribing physician if questions or concerns Unchanged zinc sulfate (Zinc) Contact prescribing physician if questions or concerns Allergies penicillin (Rash) Problems Ongoing - Any problem that you are currently receiving treatment for. Abdominal pain, periumbilical Abdominal pain, RUQ Abnormal gallbladder ultrasound BMI 33.0-33.9,adult BPH (benign prostatic hyperplasia) Cervical disc disease Diverticulosis Eczema Erectile dysfunction Essential tremor Family history of prostate cancer in father History of kidney stones Hypertension Hypocitraturia Kidney stone Loose stools Lumbar spondylosis Lupus Malignant melanoma of upper back Migraines Nausea Neoplasm of uncertain behavior of skin Osteoarthritis Raynaud disease Tremors of nervous system Historical - Any problem that you are no longer receiving treatment for. BMI 30.0-30.9,adult Diverticulitis Skin melanoma Patient Survey You may receive a survey via text or e-mail asking about your office visit. Please share your experience with us by completing your survey. We appreciate your feedback and thank you for choosing us for your care. Education Materials Dietary Guidelines to Help Prevent Kidney Stones Kidney stones are deposits of minerals and salts that form inside your kidneys. Your risk of developing kidney stones may be greater depending on your diet, your lifestyle, the medicines you take, and whether you have certain medical conditions. Most people can lower their risks of developing kidney stones by following these dietary guidelines. Your dietitian may give you more specific instructions depending on your overall health and the type of kidney stones you tend to develop. What are tips fo (more content not included)... Normal [facility] Urology Office/Clinic Noteon 04-13-2024 Urology Office/Clinic Note Urology Office/Clinic Note Chief Complaint BPH and kidney stone HPI Staff 1 yr with KUB due to kidney stone. Hx of litholink 09/03/22 and CaOx stone. *Tadalafil 10 mg PRN. Dysuria: denies Incomplete bladder emptying: less than half the time Hematuria: denies Frequency: less than half the time Urgency: less than half the time Nocturia: 1x Stream: good steady stream Leaking: pt states every now and then since he had back surgery Post void dripping: denies Wearing pads/ Depends: denies Urge incontinence: denies Stress incontinence: denies Incontinence without Sensory Awareness: denies Abdominal pain: denies Flank pain: denies Sexual complaints: denies History of Present Illness Tests reviewed: UA, KUB, PSA I have reviewed the previous health record information and history for this patient from Dr. Machado. I have reviewed and verified the staff HPI to be accurate for this encounter. Review of Systems PHQ Score Initial Depression Screen Score: 0 SCORE ROS - Provider Constitutional: denies weight loss, denies hot flashes. Eyes: denies eye problems. Gastrointestinal: denies nausea, denies vomiting. Cardiovascular: denies chest pain or angina. Integumentary: no dryness Musculoskeletal: denies musculoskeletal symptoms. ENMT: denies otolaryngeal symptoms. Respiratory: no shortness of breath. Heme/Lymph: denies easy bleeding tendency, denies easy bruising tendency. Psychiatric: no confusion, no anxiety. Genitourinary: See HPI. Physical Exam Vitals & Measurements T: 37 ?C(Temporal Artery) HR: 78(Peripheral) RR: 16 BP: 137/88 HT: 67 in HT: 170 cm WT: 106 kg WT: 233.2 lb BMI: 36.68 General Appearance: alert, no distress, well nourished, well developed male. Assessment/Plan 1. History of kidney stones (Z87.442: Personal history of urinary calculi) Hx of lithotripsy 12/2021 and R ESWL 12/2021. Stone analysis 02/15/22 - CaOx mono 90% and CaOx di 10%. Litholink 09/03/22 - Hypomagnesuria. 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 Borderline low urine pH 5.74. Mild uric acid supersaturation 1.03. Electrolyte panel 04/02/23 - wnl. KUB 04/02/23 [facility] - Neg. KUB 04/08/24 [facility] - Neg. Reviewed imaging with pt. Follow up 1 yr with KUB and PSA (if PCP doesn't order, [facility] will order) or sooner if needed. Pt understands and agrees with plan. 2. BPH (benign prostatic hyperplasia) (N40.0: Benign prostatic hyperplasia without lower urinary tract symptoms) PSA: 04/08/24 - 1.59 UA neg. IPSS 7 (7). Not taking any BPH meds. PCP was previously checking PSA but most recent level ordered by Dr. Machado. Recent PSA level good. -Pt to ensure PCP is checking PSA, otherwise, Dr. Machado will cont to monitor. 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 [1] -Drink plenty of lemonade to supplement for citrate. 4. Erectile dysfunction (N52.9: Male erectile dysfunction, unspecified) Tadalafil 10 mg PRN. Has not used often but does not seem to help much. Also had recent back surgery. -Try penile ring and/or SHAHIDA in conjunction with Tadalafil. 5. Family history of prostate cancer in father (Z80.42: Family history of malignant neoplasm of prostate) Cont screening above. Overall the patient is happy to hear that his abdominal x-ray is negative. He had previously undergone the 24-hour urine/metabolic workup. 1 year follow-up with repeat KUB as indicated. He recently had both neck and back surgery. Tadalafil was not helping much and recommendation made for the ring. No change in dosing currently. He agrees with the plan Follow-up With When Contact Information CHRIS RIVERA, Shun Mirza, URL [address] [facility] [place] [address]- Additional Instructions: 1 yr with KUB and PSA (if PCP doesn't order, [facility] will order) Patient Education Dietary Guidelines to Help Prevent Kidney Stones I, Mary Alicea, personally scribed for Dr. Machado on 04/13/2024 10:15:33. . Documentation recorded by the scribe, Mary Alicea, accurately reflects the services(s) I performed and decisions made by me. Authenticated by Dr. Machado on 04/13/2024 10:18:48. Portions of this record may have been created with voice recognition artificial intelligence software, specifically [employer], [employer] and or [employer]. Substitutions may have occurred due to the inherent limitations of voice recognition and artificial intelligence software. Problem List/Past Medical History Ongoing Abdominal pain, periumbilical Abdominal pain, RUQ Abnormal gallbladder ultrasound BMI 33.0-33.9,adult BPH (benign prostatic hyperplasia) Cervical disc disease Diverticulosis Eczema Erectile dysfunction Essential tremor Family history of prostate cancer in father History of kidney stones Hypertension Hypocitraturia Kidney stone (more content not included)... [facility] Comment on above: Result Comment: Elec tronically Signed By: Shun MACHADO MD\.br\Date and Time Signed: 04/13/24 10:19 EDT\.br\Electronically Co-Signed By: Mary Alicea\.br\Date and Time Co-Signed: 04/13/24 10:15 EDT Provider Letteron 03-27-2024 Provider Letter Provider Letter March 27, 2024 JAY CARR [address] [place] [id number] : 1960 Dear Jay , We have been trying to reach you with no success. It is important that you return our call regarding need to repeat gallbladder ultrasound upon receiving this letter. Thank you for your prompt attention to this matter. Sincerely, Dr. Arely Logan MD General Surgery Normal [facility] Alanine aminotransferase [En zymatic activity/volume] in Serum or PlasmaOrdered By: Sabrina Manriquez on 03-04-2024 ALT [Catalytic activity/Vol] 27 U/L Normal 7-52 [facility] Comment on above: Performed By: #### C 4, C3, CH50 #### [facility] , #### CBC, CMP, ESR, ADDONUAPLUS, CRP #### [facility] [address] Albumin [Mass/volume] in Ser um or Plasma by Bromocresol green (BCG) dye binding methoOrdered By: Sabrina Mnariquez on 03-04-2024 Albumin BCG dye [Mass/Vol] 4.4 g/dL 3.5-5.7 [facility] Alkaline phosphatase [Enzyma tic activity/volume] in Serum or PlasmaOrdered By: Sabrina Manriquez on 03-04-2024 ALP [Catalytic activity/Vol] 92 U/L Normal 34-104 [facility] Comment on above: Performed By: #### C 4, C3, CH50 #### [facility] , #### CBC, CMP, ESR, ADDONUAPLUS, CRP #### [facility] [address] [place] [address] [place] Aspartate aminotransferase [ Enzymatic activity/volume] in Serum or PlasmaOrdered By: Sabrina Manriquez on 03-04-2024 AST [Catalytic activity/Vol] 21 U/L Normal 13-39 [facility] Comment on above: Performed By: #### C 4, C3, CH50 #### [facility] , #### CBC, CMP, ESR, ADDONUAPLUS, CRP #### [facility] [address] [place] [address] [place] Automated basophil %Ordered By: Sabrina Manriquez on 03-04-2024 Basophils/100 WBC (Bld) 0.6 % Normal . [facility] Comment on above: Performed By: #### C 4, C3, CH50 #### [facility] , #### CBC, CMP, ESR, ADDONUAPLUS, CRP #### [address] Automated basophil countOrde red By: Sabrina Manriquez on 03-04-2024 Basophils (Bld) [#/Vol] 0.0 10*3/uL Normal 0.0-0.2 [facility] Comment on above: Performed By: #### C 4, C3, CH50 #### [facility] , #### CBC, CMP, ESR, ADDONUAPLUS, CRP #### [address] Automated blood monocyte cou ntOrdered By: Sabrina Manriquez on 03-04-2024 Monocytes (Bld) [#/Vol] 0.3 10*3/uL Normal 0.0-0.8 [facility] Comment on above: Performed By: #### C 4, C3, CH50 #### [facility] , #### CBC, CMP, ESR, ADDONUAPLUS, CRP #### [address] Automated eosinophil %Ordere d By: Sabrina Manriquez on 03-04-2024 Eosinophils/100 WBC (Bld) 1.3 % Normal . [facility] Comment on above: Performed By: #### C 4, C3, CH50 #### [facility] , #### CBC, CMP, ESR, ADDONUAPLUS, CRP #### [address] Automated eosinophil countOr dered By: Sabrina Manriquez on 03-04-2024 Eosinophils (Bld) [#/Vol] 0.1 10*3/uL Normal 0.0-0.45 [facility] Comment on above: Performed By: #### C 4, C3, CH50 #### [facility] , #### CBC, CMP, ESR, ADDONUAPLUS, CRP #### [address] [place] [address] [place] Automated monocyte %Ordered By: Sabrina Manriquez on 03-04-2024 Monocytes/100 WBC (Bld) 6.6 % Normal . [facility] Comment on above: Performed By: #### C 4, C3, CH50 #### [facility] , #### CBC, CMP, ESR, ADDONUAPLUS, CRP #### [facility] [address] [place] [address] Automated neutrophil %Ordere d By: Sabrina Manriquez on 03-04-2024 Neutrophils/100 WBC (Bld) 70.7 % Normal . [facility] Comment on above: Performed By: #### C 4, C3, CH50 #### [facility] , #### CBC, CMP, ESR, ADDONUAPLUS, CRP #### [address] Bacteria [Presence] in Urine by AutomatedOrdered By: Sabrina Manriquez on 03-04-2024 Bacteria Auto Ql (U) None seen [HPF] None Seen [facility] Bilirubin Test strip Ql (U)O rdered By: Sabrina Manriquez on 03-04-2024 Bilirubin Ql (U) Negative Negative [facility] Bilirubin.total [Mass/volume ] in Serum or PlasmaOrdered By: Sabrina Manriquez on 03-04-2024 Bilirubin [Mass/Vol] 0.6 mg/dL Normal 0.3-1.0 [facility] Comment on above: Performed By: #### C 4, C3, CH50 #### [facility] , #### CBC, CMP, ESR, ADDONUAPLUS, CRP #### [facility] [address] [place] [address] [place] C reactive protein [Mass/vol ume] in Serum or PlasmaOrdered By: Sabrina Manriquez on 03-04-2024 CRP [Mass/Vol] < 0.5 mg/dL 0.0-0.5 [facility] C-Reactive Proteinon 024 CRP [Mass/Vol] mg/L Normal 0.0-0.5 [facility] Comment on above: Result Comment: PERF ORMED BY: [place] [address] PATHOLOGIST [employer] SUPERVISOR KRISTIE BAKER M.D. Performed By: #### C 4, C3, CH50 #### [facility] , #### CBC, CMP, ESR, ADDONUAPLUS, CRP #### [facility] [address] [place] [address] [place] Calcium [Mass/volume] in Ser um or PlasmaOrdered By: Sabrina Manriquez on 03-04-2024 Calcium [Mass/Vol] 9.2 mg/dL Normal 8.6-10.3 [facility] Comment on above: Performed By: #### C 4, C3, CH50 #### [facility] , #### CBC, CMP, ESR, ADDONUAPLUS, CRP #### [place] [address] [place] Carbon dioxide, total [Moles /volume] in Serum or PlasmaOrdered By: Sabrina Manriquez on 03-04-2024 CO2 [Moles/Vol] 29.4 mmol/L Normal 21.0-31.0 [facility] Comment on above: Performed By: #### C 4, C3, CH50 #### [facility] , #### CBC, CMP, ESR, ADDONUAPLUS, CRP #### [facility] [address] [place] [address] [place] Chloride [Moles/volume] in S lenny or PlasmaOrdered By: Sabrina Manriquez on 03-04-2024 Chloride [Moles/Vol] 104 mmol/L Normal 98-107 [facility] Comment on above: Performed By: #### C 4, C3, CH50 #### [facility] , #### CBC, CMP, ESR, ADDONUAPLUS, CRP #### [facility] [address] [place] [address] Color of Urine by AutoOrdere d By: Sabrina Manriquez on 03-04-2024 Color (U) Light-yellow Normal Yellow [facility] Comment on above: Order Comment: Name Collection Type:: Clean-Voided Midstream Performed By: #### C 4, C3, CH50 #### [facility] , #### CBC, CMP, ESR, ADDONUAPLUS, CRP #### [address] Complement C3on 03-04-2024 Complement C3 138 mg/dL Normal 82-167 [facility] Comment on above: Result Comment: Perf ormed at: [facility] [address] [id number] Hand Bender: Derek Toscano PhD, Phone: [phone] Performed By: #### C 4, C3, CH50 #### [facility] , #### CBC, CMP, ESR, ADDONUAPLUS, CRP #### [address] Complement C4on 03-04-2024 Complement C4 23 mg/dL Normal 12-38 [facility] Comment on above: Result Comment: PERF ORMED BY: [place] [address] PATHOLOGIST [employer] SUPERVISOR KRISTIE BAKER M.D. Performed By: #### C 4, C3, CH50 #### [facility] , #### CBC, CMP, ESR, ADDONUAPLUS, CRP #### [address] Complement Total (CH50)on Complement Total (CH50) 48 Normal >41 [facility] Comment on above: Result [...] out of range values. Performed at: - [facility] [id number] Hand Bender: Derek Toscano PhD, Phone: [phone] PERFORMED BY: [place] [address] PATHOLOGIST [employer]MENT SUPERVISOR KRISTIE BAKER M.D. Performed By: #### C 4, C3, CH50 #### [facility] , #### CBC, CMP, ESR, ADDONUAPLUS, CRP #### [address] Complete Blood Count Auto Di ffon 03-04-2024 Mean Corpuscular HGB Conc 34.2 g/dL Normal 32.5-35.6 [facility] Comment on above: Performed By: #### C 4, C3, CH50 #### [facility] , #### CBC, CMP, ESR, ADDONUAPLUS, CRP #### [address] NRBC% 0.1 /100{WBC} Normal 0-0.5 [facility] Comment on above: Performed By: #### C 4, C3, CH50 #### [facility] , #### CBC, CMP, ESR, ADDONUAPLUS, CRP #### [address] Comprehensive Metabolic Pane tankia 03-04-2024 Albumin [Mass/Vol] 4.4 g/dL Normal 3.5-5.7 [facility] Comment on above: Performed By: #### C 4, C3, CH50 #### [facility] , #### CBC, CMP, ESR, ADDONUAPLUS, CRP #### [address] GFR/1.73 sq M.predicted MDRD (S/P/Bld) [Vol rate/Area] mL/min/{1.73_m2} Normal [facility] Comment on above: Performed By: #### C 4, C3, CH50 #### [facility] , #### CBC, CMP, ESR, ADDONUAPLUS, CRP #### [address] Creatinine [Mass/volume] in Serum or PlasmaOrdered By: Sabrina Manriquez on 03-04-2024 Creatinine [Mass/Vol] 0.93 mg/dL Normal 0.70-1.30 [facility] Comment on above: Performed By: #### C 4, C3, CH50 #### [facility] , #### CBC, CMP, ESR, ADDONUAPLUS, CRP #### [address] Dipstick and Microscopicon 0 03-04-2024 Bacteria,Urine None Seen Normal None Seen [facility] Comment on above: Order Comment: Name Collection Type:: Clean-Voided Midstream Performed By: #### C 4, C3, CH50 #### [facility] , #### CBC, CMP, ESR, ADDONUAPLUS, CRP #### [place] [address] [place] Bilirubin,Urine Negative Normal Negative [facility] Comment on above: Order Comment: Name Collection Type:: Clean-Voided Midstream Performed By: #### C 4, C3, CH50 #### [facility] , #### CBC, CMP, ESR, ADDONUAPLUS, CRP #### [place] [address] [place] Glucose Ql (U) Normal Normal Normal [facility] Comment on above: Order Comment: Name Collection Type:: Clean-Voided Midstream Performed By: #### C 4, C3, CH50 #### [facility] , #### CBC, CMP, ESR, ADDONUAPLUS, CRP #### [address] Hyaline Casts,Urine None Normal 0-8 [facility] Comment on above: Order Comment: Name Collection Type:: Clean-Voided Midstream Performed By: #### C 4, C3, CH50 #### [facility] , #### CBC, CMP, ESR, ADDONUAPLUS, CRP #### [place] [address] [place] Mucus,Urine Rare Normal [facility] Comment on above: Order Comment: Name Collection Type:: Clean-Voided Midstream Result Comment: PERF ORMED BY: [place] [address] PATHOLOGIST [employer]PARTMENT SUPERVISOR KRISTIE BAKER M.D. Performed By: #### C 4, C3, CH50 #### [facility] , #### CBC, CMP, ESR, ADDONUAPLUS, CRP #### [address] Nitrite,Urine Negative Normal Negative [facility] Comment on above: Order Comment: Name Collection Type:: Clean-Voided Midstream Performed By: #### C 4, C3, CH50 #### [facility] , #### CBC, CMP, ESR, ADDONUAPLUS, CRP #### [address] Occult Blood,Urine Negative Normal Negative [facility] Comment on above: Order Comment: Name Collection Type:: Clean-Voided Midstream Performed By: #### C 4, C3, CH50 #### [facility] , #### CBC, CMP, ESR, ADDONUAPLUS, CRP #### [place] [address] [place] Protein,Urine Trace High Negative [facility] Comment on above: Order Comment: Name Collection Type:: Clean-Voided Midstream Performed By: #### C 4, C3, CH50 #### [facility] , #### CBC, CMP, ESR, ADDONUAPLUS, CRP #### [address] RBC,Urine 1-2 Normal 0-4 [facility] Comment on above: Order Comment: Name Collection Type:: Clean-Voided Midstream Performed By: #### C 4, C3, CH50 #### [facility] , #### CBC, CMP, ESR, ADDONUAPLUS, CRP #### [address] Specificy [place],Urine 1.020 Normal 1.001-1.03 0 [facility] Comment on above: Order Comment: Name Collection Type:: Clean-Voided Midstream Performed By: #### C 4, C3, CH50 #### [facility] , #### CBC, CMP, ESR, ADDONUAPLUS, CRP #### [address] Urobilinogen,Urine Normal Normal Normal [facility] Comment on above: Order Comment: Name Collection Type:: Clean-Voided Midstream Performed By: #### C 4, C3, CH50 #### [facility] , #### CBC, CMP, ESR, ADDONUAPLUS, CRP #### [address] WBC,Urine 1-2 Normal 0-4 [facility] Comment on above: Order Comment: Name Collection Type:: Clean-Voided Midstream Performed By: #### C 4, C3, CH50 #### [facility] , #### CBC, CMP, ESR, ADDONUAPLUS, CRP #### [address] Epithelial cells.squamous [# /area] in Urine sediment by Automated countOrdered By: Sabrina Manriquez on 03-04-2024 Epithelial cells.squamous Auto (Urine sed) [#/Area] N/A [facility] Erythrocyte Sedimentation Ra natan 03-04-2024 ESR (Bld) [Velocity] 9 mm/h Normal 0-19 [facility] Comment on above: Result Comment: PERF ORMED BY: [place] [address] PATHOLOGIST [employer] DEPARTMENT SUPERVISOR KRISTIE BAKER M.D. Performed By: #### C 4, C3, CH50 #### [facility] , #### CBC, CMP, ESR, ADDONUAPLUS, CRP #### [address] Erythrocyte distribution wid th [Ratio] by Automated countOrdered By: Sabrina Manriquez on 03-04-2024 Erythrocyte distribution width (RBC) [Ratio] 13.6 % Normal 12.0-14.8 [facility] Comment on above: Performed By: #### C 4, C3, CH50 #### [facility] , #### CBC, CMP, ESR, ADDONUAPLUS, CRP #### [address] Erythrocyte sedimentation ra te by Photometric methodOrdered By: Sabrina Manriquez on 03-04-2024 ESR Photometric method (Bld) [Velocity] 9 mm/hr 0-19 [facility] Erythrocytes [#/area] in Uri ne sediment by Automated countOrdered By: Sabrina Manriquez on 03-04-2024 RBC Auto (Urine sed) [#/Area] 1-2 [HPF] 0-4 [facility] Erythrocytes [#/volume] in B lood by Automated countOrdered By: Sabrina Manriquez on 03-04-2024 RBC (Bld) [#/Vol] 4.54 10*6/uL Normal 3.90-5.60 [facility] Comment on above: Performed By: #### C 4, C3, CH50 #### [facility] , #### CBC, CMP, ESR, ADDONUAPLUS, CRP #### [address] Glucose [Mass/volume] in Ser um or PlasmaOrdered By: Sabrina Manriquez on 03-04-2024 Glucose [Mass/Vol] 132 mg/dL High 70-100 [facility] Comment on above: ADA recommended refe rence rangeRandom Glucose Reference Range is dependent on time and content of last meal. Glucose of more than 200 mg/dL in a nonstressed, ambulatory subject supports the diagnosis of Diabetes Mellitus. Result Comment: [place] om Glucose Reference Range is dependent on time and content of last meal. Glucose of more than 200 mg/dL in a nonstressed, ambulatory subject supports the diagnosis of Diabetes Mellitus. ADA recommended reference range Performed By: #### C 4, C3, CH50 #### [facility] , #### CBC, CMP, ESR, ADDONUAPLUS, CRP #### [facility] [address] [id number] [facility] Glucose [Mass/volume] in Uri ne by Test stripOrdered By: Sabrina Manriquez on 03-04-2024 Glucose Test strip (U) [Mass/Vol] Normal mg/dL Normal [facility] Hematocrit [Volume Fraction] of Blood by Automated countOrdered By: Sabrina Manriquez on 03-04-2024 Hematocrit (Bld) [Volume fraction] 42.8 % Normal 38.8-50.0 [facility] Comment on above: Performed By: #### C 4, C3, CH50 #### [facility] , #### CBC, CMP, ESR, ADDONUAPLUS, CRP #### [facility] [address] [id number] [facility] Hemoglobin Test strip Ql (U) Ordered By: Sabrina Manriquez on 03-04-2024 Hemoglobin Ql (U) Negative Negative [facility] Hemoglobin [Mass/volume] in BloodOrdered By: Sabrina Manriquez on 03-04-2024 Hemoglobin (Bld) [Mass/Vol] 14.6 g/dL Normal 13.0-17.0 [facility] Comment on above: Performed By: #### C 4, C3, CH50 #### [facility] , #### CBC, CMP, ESR, ADDONUAPLUS, CRP #### [facility] [address] [place] [address] [place] Hyaline casts [#/area] in Ur ine sediment by Automated countOrdered By: Sabrina Manriquez on 03-04-2024 Hyaline casts Auto (Urine sed) [#/Area] None [LPF] 0-8 [facility] Ketones [Presence] in Urine by Test stripOrdered By: Sabrina Mnariquez on 03-04-2024 Ketones Ql (U) Negative Normal Negative [facility] Comment on above: Order Comment: Name Collection Type:: Clean-Voided Midstream Performed By: #### C 4, C3, CH50 #### [facility] , #### CBC, CMP, ESR, ADDONUAPLUS, CRP #### [facility] [address] [place] [address] [place] Leukocyte esterase [Presence ] in Urine by Test stripOrdered By: Sabrina Manriquez on 03-04-2024 Leukocyte esterase Test strip Ql (U) Negative Normal Negative [facility] Comment on above: Order Comment: Name Collection Type:: Clean-Voided Midstream Performed By: #### C 4, C3, CH50 #### [facility] , #### CBC, CMP, ESR, ADDONUAPLUS, CRP #### [facility] [address] [place] [address] [place] Leukocytes [#/area] in Urine sediment by Automated countOrdered By: Sabrina Manriquez on 03-04-2024 WBC Auto (Urine sed) [#/Area] 1-2 [HPF] 0-4 [facility] Leukocytes [#/volume] correc leah for nucleated erythrocytes in Blood by Automated counOrdered By: Sabrina Manriquez on 03-04-2024 WBC corrected for nucl RBC Auto (Bld) [#/Vol] 5.1 10*3/uL 4.1-10.5 [facility] Leukocytes [#/volume] in Blo od by Automated countOrdered By: Sabrina Manriquez on 03-04-2024 WBC (Bld) [#/Vol] 5.1 10*3/uL Normal 4.1-10.5 [facility] Comment on above: Performed By: #### C 4, C3, CH50 #### [facility] , #### CBC, CMP, ESR, ADDONUAPLUS, CRP #### [address] Lymphocytes [#/volume] in Bl ood by Automated countOrdered By: Sabrina Manriquez on 03-04-2024 Lymphocytes (Bld) [#/Vol] 1.1 10*3/uL Normal 1.00-4.8 [facility] Comment on above: Performed By: #### C 4, C3, CH50 #### [facility] , #### CBC, CMP, ESR, ADDONUAPLUS, CRP #### [place] [address] [place] Lymphocytes/100 leukocytes i n Blood by Automated countOrdered By: Sabrina Manriquez on 03-04-2024 Lymphocytes/100 WBC (Bld) 20.8 % Normal . [facility] Comment on above: Performed By: #### C 4, C3, CH50 #### [facility] , #### CBC, CMP, ESR, ADDONUAPLUS, CRP #### [address] MCH [Entitic mass] by Automa leah countOrdered By: Sabrina Manriquez on 03-04-2024 MCH (RBC) [Entitic mass] 32.2 pg Normal 27.5-35.2 [facility] Comment on above: Performed By: #### C 4, C3, CH50 #### [facility] , #### CBC, CMP, ESR, ADDONUAPLUS, CRP #### [address] MCHC Auto (RBC) [Mass/Vol]Or dered By: Sabrina Manriquez on 03-04-2024 MCHC (RBC) [Mass/Vol] 34.2 g/dL 32.5-35.6 [facility] MCV [Entitic volume] by Auto mated countOrdered By: Sabrina Manriquez on 03-04-2024 MCV (RBC) [Entitic vol] 94.2 fL Normal 83.5-101 [facility] Comment on above: Performed By: #### C 4, C3, CH50 #### [facility] , #### CBC, CMP, ESR, ADDONUAPLUS, CRP #### [facility] [address] Mucus [Presence] in Urine by AutomatedOrdered By: Sabrina Manriquez on 03-04-2024 Mucus Auto Ql (U) Rare [LPF] [facility] Neutrophils [#/volume] in Bl ood by Automated countOrdered By: Sabrina Manriquez on 03-04-2024 Neutrophils (Bld) [#/Vol] 3.6 10*3/uL Normal 1.8-7.7 [facility] Comment on above: Performed By: #### C 4, C3, CH50 #### [facility] , #### CBC, CMP, ESR, ADDONUAPLUS, CRP #### [facility] [address] Nitrite Test strip Ql (U)Ord ered By: Sabrina Manriquez on 03-04-2024 Nitrite Ql (U) Negative Negative [facility] No Panel InformationOrdered By: Sabrina Manriquez on 03-04-2024 Estimated GFR (CKD-EPI) > 60.0 mL/Min [facility] Creatinine Clearance (Chem N/A [facility] Nucleated erythrocytes [Pres ence] in Blood by Automated countOrdered By: Sabrina Manriquez on 03-04-2024 Nucleated RBC Auto Ql (Bld) 0.1 /100{WBC} 0-0.5 [facility] Platelet mean volume [Entiti c volume] in Blood by Automated countOrdered By: Sabrina Manriquez on 03-04-2024 Platelet mean volume (Bld) [Entitic vol] 9.1 fL Normal 6.6-10.1 [facility] Comment on above: Performed By: #### C 4, C3, CH50 #### [facility] , #### CBC, CMP, ESR, ADDONUAPLUS, CRP #### [facility] [address] Platelets [#/volume] in Bloo d by Automated countOrdered By: Sabrina Manriquez on 03-04-2024 Platelets (Bld) [#/Vol] 235 10*3/uL Normal 150-450 [facility] Comment on above: Performed By: #### C 4, C3, CH50 #### [facility] , #### CBC, CMP, ESR, ADDONUAPLUS, CRP #### [facility] [address] Potassium [Moles/volume] in Serum or PlasmaOrdered By: Sabrina Manriquez on 03-04-2024 Potassium [Moles/Vol] 4.2 mmol/L Normal 3.5-5.1 [facility] Comment on above: Performed By: #### C 4, C3, CH50 #### [facility] , #### CBC, CMP, ESR, ADDONUAPLUS, CRP #### [facility] [address] Protein Test strip (U) [Mass /Vol]Ordered By: Sabrina Manriquez on 03-04-2024 Protein (U) [Mass/Vol] Trace mg/dL High Negative [facility] Protein [Mass/volume] in Ser um or PlasmaOrdered By: Sabrina Manriquez on 03-04-2024 Protein [Mass/Vol] 7.1 g/dL Normal 6.4-8.9 [facility] Comment on above: Performed By: #### C 4, C3, CH50 #### [facility] , #### CBC, CMP, ESR, ADDONUAPLUS, CRP #### [address] Serum globulin measurement b y calculation (mass/volume)Ordered By: Sabrina Manriquez on 03-04-2024 Globulin (S) [Mass/Vol] 2.7 g/dL [facility] Comment on above: Performed By: #### C 4, C3, CH50 #### [facility] , #### CBC, CMP, ESR, ADDONUAPLUS, CRP #### [address] Serum or plasma albumin/glob ulin mass ratioOrdered By: Sabrina Manriquez on 03-04-2024 Albumin/Globulin [Mass ratio] 1.6 {ratio} [facility] Comment on above: Performed By: #### C 4, C3, CH50 #### [facility] , #### CBC, CMP, ESR, ADDONUAPLUS, CRP #### [address] Serum or plasma anion gap de terminationOrdered By: Sabrina Manriquez on 03-04-2024 Anion gap [Moles/Vol] 10.8 mmol/L Normal 6.0-15.0 [facility] Comment on above: Performed By: #### C 4, C3, CH50 #### [facility] , #### CBC, CMP, ESR, ADDONUAPLUS, CRP #### [address] Sodium [Moles/volume] in Ser um or PlasmaOrdered By: Sabrina Manriquez on 03-04-2024 Sodium [Moles/Vol] 140 mmol/L Normal 136-145 [facility] Comment on above: Performed By: #### C 4, C3, CH50 #### [facility] , #### CBC, CMP, ESR, ADDONUAPLUS, CRP #### [address] Specific gravity Test strip (U) [Rel density]Ordered By: Sabrina Manriquez on 03-04-2024 Specific gravity (U) [Rel density] 1.020 1.001-1.03 0 [facility] Urea nitrogen [Mass/volume] in Serum or PlasmaOrdered By: Sabrina Manriquez on 03-04-2024 Urea nitrogen [Mass/Vol] 18 mg/dL Normal 7-25 [facility] Comment on above: Performed By: #### C 4, C3, CH50 #### [facility] , #### CBC, CMP, ESR, ADDONUAPLUS, CRP #### [facility] [address] Urine appearanceOrdered By: Sabrina Manriquez on 03-04-2024 Appearance (U) Clear Normal Clear [facility] Comment on above: Order Comment: Name Collection Type:: Clean-Voided Midstream Performed By: #### C 4, C3, CH50 #### [facility] , #### CBC, CMP, ESR, ADDONUAPLUS, CRP #### [address] Urobilinogen Test strip (U) [Mass/Vol]Ordered By: Sabrina Manriquez on 03-04-2024 Urobilinogen (U) [Mass/Vol] Normal mg/dL Normal [facility] pH of Urine by Test stripOrd ered By: Sabrina Manriquez on 03-04-2024 pH (U) 5.5 [pH] Normal 5.0-9.0 [facility] Comment on above: Order Comment: Name Collection Type:: Clean-Voided Midstream Performed By: #### C 4, C3, CH50 #### [facility] , #### CBC, CMP, ESR, ADDONUAPLUS, CRP #### [address] Alanine aminotransferase [En zymatic activity/volume] in Serum or PlasmaOrdered By: Sabrina Manriquez on 11-19-2023 ALT [Catalytic activity/Vol] 28 U/L Normal 7-52 [facility] Comment on above: Performed By: #### E SR, ADDONUAPLUS, CBC, CMP, CRP #### [facility] [address] [place] [address] [place] #### C4, C3, CH50 #### [facility] , Albumin [Mass/volume] in Ser um or Plasma by Bromocresol green (BCG) dye binding methoOrdered By: Sabrina Manriquez on 11-19-2023 Albumin BCG dye [Mass/Vol] 4.1 g/dL 3.5-5.7 [facility] Alkaline phosphatase [Enzyma tic activity/volume] in Serum or PlasmaOrdered By: Sabrina Manriquez on 11-19-2023 ALP [Catalytic activity/Vol] 70 U/L Normal 34-104 [facility] Comment on above: Performed By: #### E SR, ADDONUAPLUS, CBC, CMP, CRP #### [place] [address] [place] #### C4, C3, CH50 #### [facility] , Aspartate aminotransferase [ Enzymatic activity/volume] in Serum or PlasmaOrdered By: Sabrina Manriquez on 11-19-2023 AST [Catalytic activity/Vol] 29 U/L Normal 13-39 [facility] Comment on above: Performed By: #### E SR, ADDONUAPLUS, CBC, CMP, CRP #### [facility] [address] [place] [address] [place] #### C4, C3, CH50 #### [facility] , Automated basophil %Ordered By: Sabrina Manriquez on 11-19-2023 Basophils/100 WBC (Bld) 0.7 % Normal . [facility] Comment on above: Performed By: #### C 4, C3, CH50 #### [facility] , #### CBC, CMP, ESR, ADDONUAPLUS, CRP #### [address] Automated basophil countOrde red By: Sabrina Manriquez on 11-19-2023 Basophils (Bld) [#/Vol] 0.0 10*3/uL Normal 0.0-0.2 [facility] Comment on above: Performed By: #### C 4, C3, CH50 #### [facility] , #### CBC, CMP, ESR, ADDONUAPLUS, CRP #### [address] Automated blood monocyte cou ntOrdered By: Sabrina Manriquez on 11-19-2023 Monocytes (Bld) [#/Vol] 0.5 10*3/uL Normal 0.0-0.8 [facility] Comment on above: Performed By: #### C 4, C3, CH50 #### [facility] , #### CBC, CMP, ESR, ADDONUAPLUS, CRP #### [address] Automated eosinophil %Ordere d By: Sabrina Manriquez on 11-19-2023 Eosinophils/100 WBC (Bld) 1.6 % Normal . [facility] Comment on above: Performed By: #### C 4, C3, CH50 #### [facility] , #### CBC, CMP, ESR, ADDONUAPLUS, CRP #### [address] Automated eosinophil countOr dered By: Sabrina Manriquez on 11-19-2023 Eosinophils (Bld) [#/Vol] 0.1 10*3/uL Normal 0.0-0.45 [facility] Comment on above: Performed By: #### C 4, C3, CH50 #### [facility] , #### CBC, CMP, ESR, ADDONUAPLUS, CRP #### [address] Automated epithelial cells c ount in urine sediment (number/area)Ordered By: Sabrina Manriquez on 11-19-2023 Epithelial cells Auto (Urine sed) [#/Area] None seen [HPF] 0-2 [facility] Automated monocyte %Ordered By: Sabrina Manriquez on 11-19-2023 Monocytes/100 WBC (Bld) 8.0 % Normal . [facility] Comment on above: Performed By: #### C 4, C3, CH50 #### [facility] , #### CBC, CMP, ESR, ADDONUAPLUS, CRP #### [facility] [address] Automated neutrophil %Ordere d By: Sabrina Manriquez on 11-19-2023 Neutrophils/100 WBC (Bld) 70.9 % Normal . [facility] Comment on above: Performed By: #### C 4, C3, CH50 #### [facility] , #### CBC, CMP, ESR, ADDONUAPLUS, CRP #### [address] Bacteria [Presence] in Urine by AutomatedOrdered By: Sabrina Manriquez on 11-19-2023 Bacteria Auto Ql (U) None seen [HPF] None Seen [facility] Bilirubin Test strip Ql (U)O rdered By: Sabrina Manriquez on 11-19-2023 Bilirubin Ql (U) Negative Negative [facility] Bilirubin.total [Mass/volume ] in Serum or PlasmaOrdered By: Sabrina Manriquez on 11-19-2023 Bilirubin [Mass/Vol] 0.5 mg/dL Normal 0.3-1.0 [facility] Comment on above: Performed By: #### E SR, ADDONUAPLUS, CBC, CMP, CRP #### [facility] [address] [place] [address] #### C4, C3, CH50 #### [facility] , C reactive protein [Mass/vol ume] in Serum or PlasmaOrdered By: Sabrina Ruizer on 11-19-2023 CRP [Mass/Vol] < 0.5 mg/dL 0.0-0.5 [facility] C-Reactive Proteinon 024 CRP [Mass/Vol] mg/L Normal 0.0-0.5 [facility] Comment on above: Result Comment: PERF ORMED BY: [place] [address] PATHOLOGIST [employer] SUPERVISOR KRISTIE BAKER M.D. Performed By: #### C 4, C3, CH50 #### [facility] , #### CBC, CMP, ESR, ADDONUAPLUS, CRP #### [address] Calcium [Mass/volume] in Ser um or PlasmaOrdered By: Sabrina Manriquez on 11-19-2023 Calcium [Mass/Vol] 9.1 mg/dL Normal 8.6-10.3 [facility] Comment on above: Performed By: #### E SR, ADDONUAPLUS, CBC, CMP, CRP #### [address] #### C4, C3, CH50 #### [facility] , Carbon dioxide, total [Moles /volume] in Serum or PlasmaOrdered By: Sbarina Manriquez on 11-19-2023 CO2 [Moles/Vol] 30.2 mmol/L Normal 21.0-31.0 [facility] Comment on above: Performed By: #### E SR, ADDONUAPLUS, CBC, CMP, CRP #### [place] [address] [place] #### C4, C3, CH50 #### [facility] , Chloride [Moles/volume] in S lenny or PlasmaOrdered By: Sabrina Manriquez on 11-19-2023 Chloride [Moles/Vol] 105 mmol/L Normal 98-107 [facility] Comment on above: Performed By: #### E SR, ADDONUAPLUS, CBC, CMP, CRP #### [place] [address] [place] #### C4, C3, CH50 #### [facility] , Color of Urine by AutoOrdere d By: Sabrina Manriquez on 11-19-2023 Color (U) Yellow Normal Yellow [facility] Comment on above: Order Comment: Name Collection Type:: Clean-Voided Midstream Performed By: #### E SR, ADDONUAPLUS, CBC, CMP, CRP #### [facility] [address] [place] [address] #### C4, C3, CH50 #### [facility] , Complement C3on 11-19-2023 Complement C3 129 mg/dL Normal 82-167 [facility] Comment on above: Result Comment: Perf ormed at: [facility] [id number] Hand Bender: Derek Toscano PhD, Phone: [phone] Performed By: #### C 4, C3, CH50 #### [facility] , #### CBC, CMP, ESR, ADDONUAPLUS, CRP #### [address] Complement C4on 11-19-2023 Complement C4 20 mg/dL Normal 12-38 [facility] Comment on above: Result Comment: PERF ORMED BY: [place] [address] PATHOLOGIST [employer] SUPERVISOR KRISTIE BAKER M.D. Performed By: #### C 4, C3, CH50 #### [facility] , #### CBC, CMP, ESR, ADDONUAPLUS, CRP #### [address] Complement Total (CH50)on Complement Total (CH50) 48 Normal >41 [facility] Comment on above: Result [...] out of range values. Performed at: - [facility] [id number] Hand Bender: Derek Toscano PhD, Phone: [phone] PERFORMED BY: [place] [address] PATHOLOGIST [employer] SUPERVISOR KRISTIE BAKER M.D. Performed By: #### C 4, C3, CH50 #### [facility] , #### CBC, CMP, ESR, ADDONUAPLUS, CRP #### [address] Complete Blood Count Auto Di ffon 11-19-2023 Mean Corpuscular HGB Conc 34.0 g/dL Normal 32.5-35.6 [facility] Comment on above: Performed By: #### C 4, C3, CH50 #### [facility] , #### CBC, CMP, ESR, ADDONUAPLUS, CRP #### [address] NRBC% 0.1 /100{WBC} Normal 0-0.5 [facility] Comment on above: Performed By: #### C 4, C3, CH50 #### [facility] , #### CBC, CMP, ESR, ADDONUAPLUS, CRP #### [address] Comprehensive Metabolic Pane tanika 11-19-2023 Albumin [Mass/Vol] 4.1 g/dL Normal 3.5-5.7 [facility] Comment on above: Performed By: #### E SR, ADDONUAPLUS, CBC, CMP, CRP #### [address] #### C4, C3, CH50 #### [facility] , GFR/1.73 sq M.predicted MDRD (S/P/Bld) [Vol rate/Area] mL/min/{1.73_m2} Normal [facility] Comment on above: Performed By: #### E SR, ADDONUAPLUS, CBC, CMP, CRP #### [place] [address] [place] #### C4, C3, CH50 #### [facility] , Creatinine [Mass/volume] in Serum or PlasmaOrdered By: Sabrina Manriquez on 11-19-2023 Creatinine [Mass/Vol] 0.97 mg/dL Normal 0.70-1.30 [facility] Comment on above: Performed By: #### E SR, ADDONUAPLUS, CBC, CMP, CRP #### [address] #### C4, C3, CH50 #### [facility] , Dipstick and Microscopicon 0 11-19-2023 Appearance (U) Clear Normal Clear [facility] Comment on above: Order Comment: Name Collection Type:: Clean-Voided Midstream Performed By: #### E SR, ADDONUAPLUS, CBC, CMP, CRP #### [address] #### C4, C3, CH50 #### [facility] , Bacteria,Urine None Seen Normal None Seen [facility] Comment on above: Order Comment: Name Collection Type:: Clean-Voided Midstream Performed By: #### E SR, ADDONUAPLUS, CBC, CMP, CRP #### [address] #### C4, C3, CH50 #### [facility] , Bilirubin,Urine Negative Normal Negative [facility] Comment on above: Order Comment: Name Collection Type:: Clean-Voided Midstream Performed By: #### E SR, ADDONUAPLUS, CBC, CMP, CRP #### [address] #### C4, C3, CH50 #### [facility] , Glucose Ql (U) Normal Normal Normal [facility] Comment on above: Order Comment: Name Collection Type:: Clean-Voided Midstream Performed By: #### E SR, ADDONUAPLUS, CBC, CMP, CRP #### [address] #### C4, C3, CH50 #### [facility] , Hyaline Casts,Urine None Seen Normal 0-8 [facility] Comment on above: Order Comment: Name Collection Type:: Clean-Voided Midstream Result Comment: PERF ORMED BY: [place] [address] PATHOLOGIST [employer]MENT SUPERVISOR KRISTIE BAKER M.D. Performed By: #### E SR, ADDONUAPLUS, CBC, CMP, CRP #### [address] #### C4, C3, CH50 #### [facility] , Ketones Ql (U) Negative Normal Negative [facility] Comment on above: Order Comment: Name Collection Type:: Clean-Voided Midstream Performed By: #### E SR, ADDONUAPLUS, CBC, CMP, CRP #### [address] #### C4, C3, CH50 #### [facility] , Leukocyte esterase Test strip Ql (U) Negative Normal Negative [facility] Comment on above: Order Comment: Name Collection Type:: Clean-Voided Midstream Performed By: #### E SR, ADDONUAPLUS, CBC, CMP, CRP #### [address] #### C4, C3, CH50 #### [facility] , Nitrite,Urine Negative Normal Negative [facility] Comment on above: Order Comment: Name Collection Type:: Clean-Voided Midstream Performed By: #### E SR, ADDONUAPLUS, CBC, CMP, CRP #### [place] [address] [place] #### C4, C3, CH50 #### [facility] , Occult Blood,Urine Negative Normal Negative [facility] Comment on above: Order Comment: Name Collection Type:: Clean-Voided Midstream Performed By: #### E SR, ADDONUAPLUS, CBC, CMP, CRP #### [address] #### C4, C3, CH50 #### [facility] , Protein,Urine Negative Normal Negative [facility] Comment on above: Order Comment: Name Collection Type:: Clean-Voided Midstream Performed By: #### E SR, ADDONUAPLUS, CBC, CMP, CRP #### [address] #### C4, C3, CH50 #### [facility] , RBC LM.HPF (Urine sed) [#/Area] 0 /[HPF] Normal 0-4 [facility] Comment on above: Order Comment: Name Collection Type:: Clean-Voided Midstream Performed By: #### E SR, ADDONUAPLUS, CBC, CMP, CRP #### [address] #### C4, C3, CH50 #### [facility] , Specificy [place],Urine 1.021 Normal 1.001-1.03 0 [facility] Comment on above: Order Comment: Name Collection Type:: Clean-Voided Midstream Performed By: #### E SR, ADDONUAPLUS, CBC, CMP, CRP #### [place] [address] [place] #### C4, C3, CH50 #### [facility] , Squamous Epithelial Cell,Urine None Seen Normal 0-2 [facility] Comment on above: Order Comment: Name Collection Type:: Clean-Voided Midstream Performed By: #### E SR, ADDONUAPLUS, CBC, CMP, CRP #### [address] #### C4, C3, CH50 #### [facility] , Urobilinogen,Urine Normal Normal Normal [facility] Comment on above: Order Comment: Name Collection Type:: Clean-Voided Midstream Performed By: #### E SR, ADDONUAPLUS, CBC, CMP, CRP #### [address] #### C4, C3, CH50 #### [facility] , WBC LM.HPF (Urine sed) [#/Area] 0 /[HPF] Normal 0-4 [facility] Comment on above: Order Comment: Name Collection Type:: Clean-Voided Midstream Performed By: #### E SR, ADDONUAPLUS, CBC, CMP, CRP #### [address] #### C4, C3, CH50 #### [facility] , Erythrocyte Sedimentation Ra natan 11-19-2023 ESR (Bld) [Velocity] 5 mm/h Normal 0-19 [facility] Comment on above: Result Comment: PERF ORMED BY: [place] [address] PATHOLOGIST [employer]MENT SUPERVISOR KRISTIE BAKER M.D. Performed By: #### C 4, C3, CH50 #### [facility] , #### CBC, CMP, ESR, ADDONUAPLUS, CRP #### [address] Erythrocyte distribution wid th [Ratio] by Automated countOrdered By: Sabrina Manriquez on 11-19-2023 Erythrocyte distribution width (RBC) [Ratio] 13.7 % Normal 12.0-14.8 [facility] Comment on above: Performed By: #### C 4, C3, CH50 #### [facility] , #### CBC, CMP, ESR, ADDONUAPLUS, CRP #### [address] Erythrocyte sedimentation ra te by Photometric methodOrdered By: Sabrina Manriquez on 11-19-2023 ESR Photometric method (Bld) [Velocity] 5 mm/hr 0-19 [facility] Erythrocytes [#/area] in Uri ne sediment by Automated countOrdered By: Sabrina Manriquez on 11-19-2023 RBC Auto (Urine sed) [#/Area] 0-1 [HPF] 0-4 [facility] Erythrocytes [#/volume] in B lood by Automated countOrdered By: Sabrina Manriquez on 11-19-2023 RBC (Bld) [#/Vol] 4.64 10*6/uL Normal 3.90-5.60 [facility] Comment on above: Performed By: #### C 4, C3, CH50 #### [facility] , #### CBC, CMP, ESR, ADDONUAPLUS, CRP #### [address] Glucose [Mass/volume] in Ser um or PlasmaOrdered By: Sabrina Manriquez on 11-19-2023 Glucose [Mass/Vol] 115 mg/dL High 70-100 [facility] Comment on above: ADA recommended refe rence rangeRandom Glucose Reference Range is dependent on time and content of last meal. Glucose of more than 200 mg/dL in a nonstressed, ambulatory subject supports the diagnosis of Diabetes Mellitus. Result Comment: [place] om Glucose Reference Range is dependent on time and content of last meal. Glucose of more than 200 mg/dL in a nonstressed, ambulatory subject supports the diagnosis of Diabetes Mellitus. ADA recommended reference range Performed By: #### E SR, ADDONUAPLUS, CBC, CMP, CRP #### [address] #### C4, C3, CH50 #### [facility] , Hematocrit [Volume Fraction] of Blood by Automated countOrdered By: Sabrina Manriquez on 11-19-2023 Hematocrit (Bld) [Volume fraction] 44.2 % Normal 38.8-50.0 [facility] Comment on above: Performed By: #### C 4, C3, CH50 #### [facility] , #### CBC, CMP, ESR, ADDONUAPLUS, CRP #### [facility] [address] Hemoglobin [Mass/volume] in BloodOrdered By: Sabrina Manriquez on 11-19-2023 Hemoglobin (Bld) [Mass/Vol] 15.0 g/dL Normal 13.0-17.0 [facility] Comment on above: Performed By: #### C 4, C3, CH50 #### [facility] , #### CBC, CMP, ESR, ADDONUAPLUS, CRP #### [facility] [address] Ketones Auto test strip (U) [Mass/Vol]Ordered By: Sabrina Manriquez on 11-19-2023 Ketones (U) [Mass/Vol] Negative Negative [facility] - UrinalysisOrder ed By: Sabrina Manriquez on 11-19-2023 Hyaline casts LM Ql (Urine sed) None seen [LPF] 0-8 [facility] Leukocytes [#/area] in Urine sediment by Automated countOrdered By: Sabrina Manriquez on 11-19-2023 WBC Auto (Urine sed) [#/Area] 0-1 [HPF] 0-4 [facility] Leukocytes [#/volume] correc leah for nucleated erythrocytes in Blood by Automated counOrdered By: Sabrina Manriquez on 11-19-2023 WBC corrected for nucl RBC Auto (Bld) [#/Vol] 5.7 10*3/uL 4.1-10.5 [facility] Leukocytes [#/volume] in Blo od by Automated countOrdered By: Sabrina Manriquez on 11-19-2023 WBC (Bld) [#/Vol] 5.7 10*3/uL Normal 4.1-10.5 [facility] Comment on above: Performed By: #### C 4, C3, CH50 #### [facility] , #### CBC, CMP, ESR, ADDONUAPLUS, CRP #### [address] Lymphocytes [#/volume] in Bl ood by Automated countOrdered By: Sabrina Manriquez on 11-19-2023 Lymphocytes (Bld) [#/Vol] 1.1 10*3/uL Normal 1.00-4.8 [facility] Comment on above: Performed By: #### C 4, C3, CH50 #### [facility] , #### CBC, CMP, ESR, ADDONUAPLUS, CRP #### [address] Lymphocytes/100 leukocytes i n Blood by Automated countOrdered By: Sabrina Manriquez on 11-19-2023 Lymphocytes/100 WBC (Bld) 18.8 % Normal . [facility] Comment on above: Performed By: #### C 4, C3, CH50 #### [facility] , #### CBC, CMP, ESR, ADDONUAPLUS, CRP #### [address] MCH [Entitic mass] by Automa leah countOrdered By: Sabrina Manriquez on 11-19-2023 MCH (RBC) [Entitic mass] 32.3 pg Normal 27.5-35.2 [facility] Comment on above: Performed By: #### C 4, C3, CH50 #### [facility] , #### CBC, CMP, ESR, ADDONUAPLUS, CRP #### [address] MCHC Auto (RBC) [Mass/Vol]Or dered By: Sabrina Manriquez on 11-19-2023 MCHC (RBC) [Mass/Vol] 34.0 g/dL 32.5-35.6 [facility] MCV [Entitic volume] by Auto mated countOrdered By: Sabrina Manriquez on 11-19-2023 MCV (RBC) [Entitic vol] 95.2 fL Normal 83.5-101 [facility] Comment on above: Performed By: #### C 4, C3, CH50 #### [facility] , #### CBC, CMP, ESR, ADDONUAPLUS, CRP #### [address] Neutrophils [#/volume] in Bl ood by Automated countOrdered By: Sabrina Manriquez on 11-19-2023 Neutrophils (Bld) [#/Vol] 4.1 10*3/uL Normal 1.8-7.7 [facility] Comment on above: Performed By: #### C 4, C3, CH50 #### [facility] , #### CBC, CMP, ESR, ADDONUAPLUS, CRP #### [address] Nitrite Test strip Ql (U)Ord ered By: Sabrina Manriquez on 11-19-2023 Nitrite Ql (U) Negative Negative [facility] No Panel InformationOrdered By: Sabrina Manriquez on 11-19-2023 Estimated GFR (CKD-EPI) > 60.0 mL/Min [facility] Creatinine Clearance (Chem N/A [facility] Nucleated erythrocytes [Pres ence] in Blood by Automated countOrdered By: Sabrina Manriquez on 11-19-2023 Nucleated RBC Auto Ql (Bld) 0.1 /100{WBC} 0-0.5 [facility] Platelet mean volume [Entiti c volume] in Blood by Automated countOrdered By: Sabrina Manriquez on 11-19-2023 Platelet mean volume (Bld) [Entitic vol] 9.3 fL Normal 6.6-10.1 [facility] Comment on above: Performed By: #### C 4, C3, CH50 #### [facility] , #### CBC, CMP, ESR, ADDONUAPLUS, CRP #### [facility] [address] [place] [address] Platelets [#/volume] in Bloo d by Automated countOrdered By: Sabrina Manriquez on 11-19-2023 Platelets (Bld) [#/Vol] 220 10*3/uL Normal 150-450 [facility] Comment on above: Performed By: #### C 4, C3, CH50 #### [facility] , #### CBC, CMP, ESR, ADDONUAPLUS, CRP #### [facility] [address] [place] [address] Potassium [Moles/volume] in Serum or PlasmaOrdered By: Sabrina Manriquez on 11-19-2023 Potassium [Moles/Vol] 4.4 mmol/L Normal 3.5-5.1 [facility] Comment on above: Performed By: #### E SR, ADDONUAPLUS, CBC, CMP, CRP #### [facility] [address] [place] [address] #### C4, C3, CH50 #### [facility] , Protein Auto test strip (U) [Mass/Vol]Ordered By: Sabrina Manriquez on 11-19-2023 Protein (U) [Mass/Vol] Negative Negative [facility] Protein [Mass/volume] in Ser um or PlasmaOrdered By: Sabrina Manriquez on 11-19-2023 Protein [Mass/Vol] 6.7 g/dL Normal 6.4-8.9 [facility] Comment on above: Performed By: #### E SR, ADDONUAPLUS, CBC, CMP, CRP #### [facility] [address] [place] [address] [place] #### C4, C3, CH50 #### [facility] , Serum globulin measurement b y calculation (mass/volume)Ordered By: Sabrina Manriquez on 11-19-2023 Globulin (S) [Mass/Vol] 2.6 g/dL Normal [facility] Comment on above: Performed By: #### E SR, ADDONUAPLUS, CBC, CMP, CRP #### [place] [address] [place] #### C4, C3, CH50 #### [facility] , Serum or plasma albumin/glob ulin mass ratioOrdered By: Sabrina Manriquez on 11-19-2023 Albumin/Globulin [Mass ratio] 1.6 {ratio} Normal [facility] Comment on above: Performed By: #### E SR, ADDONUAPLUS, CBC, CMP, CRP #### [place] [address] [place] #### C4, C3, CH50 #### [facility] , Serum or plasma anion gap de terminationOrdered By: Sabrina Manriquez on 11-19-2023 Anion gap [Moles/Vol] 9.2 mmol/L Normal 6.0-15.0 [facility] Comment on above: Performed By: #### E SR, ADDONUAPLUS, CBC, CMP, CRP #### [place] [address] [place] #### C4, C3, CH50 #### [facility] , Sodium [Moles/volume] in Ser um or PlasmaOrdered By: Sabrina Manriquez on 11-19-2023 Sodium [Moles/Vol] 140 mmol/L Normal 136-145 [facility] Comment on above: Performed By: #### E SR, ADDONUAPLUS, CBC, CMP, CRP #### [facility] [address] [place] [address] [place] #### C4, C3, CH50 #### [facility] , Specific gravity Auto test s trip (U) [Rel density]Ordered By: Sabrina Manriquez on 11-19-2023 Specific gravity (U) [Rel density] 1.021 1.001-1.03 0 [facility] Urea nitrogen [Mass/volume] in Serum or PlasmaOrdered By: Sabrina Manriquez on 11-19-2023 Urea nitrogen [Mass/Vol] 17 mg/dL Normal 01-15 [facility] Comment on above: Performed By: #### E SR, ADDONUAPLUS, CBC, CMP, CRP #### [facility] [address] [place] [address] [place] #### C4, C3, CH50 #### [facility] , Urine clarity by refractomet ry automatedOrdered By: Sabrina Manriquez on 11-19-2023 Clarity Refractometry automated (U) Clear Clear [facility] Urine glucose measurement by automated test strip (mass/volume)Ordered By: Sabrina Manriquez on 11-19-2023 Glucose Auto test strip (U) [Mass/Vol] Normal mg/dL Normal [facility] Urine hemoglobin detection b y automated test stripOrdered By: Sabrina Manriquez on 11-19-2023 Hemoglobin Auto test strip Ql (U) Negative Negative [facility] Urine leukocyte esterase det ection by automated test stripOrdered By: Sabrina Manriquez on 11-19-2023 Leukocyte esterase Auto test strip Ql (U) Negative Negative [facility] Urine pH measurement by auto mated test stripOrdered By: Sabrina Manriquez on 11-19-2023 pH (U) 5.5 [pH] Normal 5.0-9.0 [facility] Comment on above: Order Comment: Name Collection Type:: Clean-Voided Midstream Performed By: #### E SR, ADDONUAPLUS, CBC, CMP, CRP #### [facility] [address] [place] [address] [place] #### C4, C3, CH50 #### [facility] , Urobilinogen Auto test strip (U) [Mass/Vol]Ordered By: Sabrina Manriquez on 11-19-2023 Urobilinogen (U) [Mass/Vol] Normal mg/dL Normal [facility] Alanine aminotransferase [En zymatic activity/volume] in Serum or PlasmaOrdered By: Sabrina Manriquez on 07-18-2023 ALT [Catalytic activity/Vol] 32 U/L Normal [facility] Comment on above: Performed By: #### C 4, C3, CH50 #### [facility] , #### CBC, CMP, ESR, ADDONUAPLUS, CRP #### [address] Albumin [Mass/volume] in Ser um or Plasma by Bromocresol green (BCG) dye binding methoOrdered By: Sabrina Manriquez on 07-18-2023 Albumin BCG dye [Mass/Vol] 4.3 g/dL 3.5-5.7 [facility] Alkaline phosphatase [Enzyma tic activity/volume] in Serum or PlasmaOrdered By: Sabrina Manriquez on 07-18-2023 ALP [Catalytic activity/Vol] 78 U/L Normal 34-104 [facility] Comment on above: Performed By: #### C 4, C3, CH50 #### [facility] , #### CBC, CMP, ESR, ADDONUAPLUS, CRP #### [address] Aspartate aminotransferase [ Enzymatic activity/volume] in Serum or PlasmaOrdered By: Sabrina Manriquez on 07-18-2023 AST [Catalytic activity/Vol] 28 U/L Normal 13-39 [facility] Comment on above: Performed By: #### C 4, C3, CH50 #### [facility] , #### CBC, CMP, ESR, ADDONUAPLUS, CRP #### [address] Automated basophil %Ordered By: Sabrina Manriquez on 07-18-2023 Basophils/100 WBC (Bld) 0.8 % Normal . [facility] Comment on above: Performed By: #### C 4, C3, CH50 #### [facility] , #### CBC, CMP, ESR, ADDONUAPLUS, CRP #### [address] Automated basophil countOrde red By: Sabrina Manriquez on 07-18-2023 Basophils (Bld) [#/Vol] 0.1 10*3/uL Normal 0.0-0.2 [facility] Comment on above: Performed By: #### C 4, C3, CH50 #### [facility] , #### CBC, CMP, ESR, ADDONUAPLUS, CRP #### [address] Automated blood monocyte cou ntOrdered By: Sabrina Manriquez on 07-18-2023 Monocytes (Bld) [#/Vol] 0.6 10*3/uL Normal 0.0-0.8 [facility] Comment on above: Performed By: #### C 4, C3, CH50 #### [facility] , #### CBC, CMP, ESR, ADDONUAPLUS, CRP #### [address] Automated eosinophil %Ordere d By: Sabrina Manriquez on 07-18-2023 Eosinophils/100 WBC (Bld) 0.7 % Normal . [facility] Comment on above: Performed By: #### C 4, C3, CH50 #### [facility] , #### CBC, CMP, ESR, ADDONUAPLUS, CRP #### [address] Automated eosinophil countOr dered By: Sabrina Manriquez on 07-18-2023 Eosinophils (Bld) [#/Vol] 0.0 10*3/uL Normal 0.0-0.45 [facility] Comment on above: Performed By: #### C 4, C3, CH50 #### [facility] , #### CBC, CMP, ESR, ADDONUAPLUS, CRP #### [address] Automated erythrocytes count in urine sediment (number/area)Ordered By: Sabrina Manriquez on 07-18-2023 RBC Auto (Urine sed) [#/Area] 0-1 [HPF] 0-4 [facility] Automated leukocytes count i n urine sediment (number/area)Ordered By: Sabrina Manriquez on 07-18-2023 WBC Auto (Urine sed) [#/Area] 0-1 [HPF] 0-4 [facility] Automated monocyte %Ordered By: Sabrina Manriquez on 07-18-2023 Monocytes/100 WBC (Bld) 8.9 % Normal . [facility] Comment on above: Performed By: #### C 4, C3, CH50 #### [facility] , #### CBC, CMP, ESR, ADDONUAPLUS, CRP #### [facility] [address] Automated neutrophil %Ordere d By: Sabrina Manriquez on 07-18-2023 Neutrophils/100 WBC (Bld) 74.5 % Normal . [facility] Comment on above: Performed By: #### C 4, C3, CH50 #### [facility] , #### CBC, CMP, ESR, ADDONUAPLUS, CRP #### [facility] [address] [place] [address] Automated urine color determ inationOrdered By: Sabrina Manriquez on 07-18-2023 Color (U) Yellow Normal Yellow [facility] Comment on above: Order Comment: Name Collection Type:: Clean-Voided Midstream Performed By: #### C 4, C3, CH50 #### [facility] , #### CBC, CMP, ESR, ADDONUAPLUS, CRP #### [facility] [address] [place] [address] Bilirubin Test strip Ql (U)O rdered By: Sabrina Manriquez on 07-18-2023 Bilirubin Ql (U) Negative Negative [facility] Bilirubin.total [Mass/volume ] in Serum or PlasmaOrdered By: Sabrina Manriquez on 07-18-2023 Bilirubin [Mass/Vol] 0.5 mg/dL Normal 0.3-1.0 [facility] Comment on above: Performed By: #### C 4, C3, CH50 #### [facility] , #### CBC, CMP, ESR, ADDONUAPLUS, CRP #### [place] [address] [place] C reactive protein [Mass/vol ume] in Serum or PlasmaOrdered By: Sabrina Manriquez on 07-18-2023 CRP [Mass/Vol] < 0.5 mg/dL 0.0-0.5 [facility] C-Reactive Proteinon 024 CRP [Mass/Vol] mg/L Normal 0.0-0.5 [facility] Comment on above: Result Comment: PERF ORMED BY: [place] [address] PATHOLOGIST [employer]PARTMENT SUPERVISOR KRISTIE BAKER M.D. Performed By: #### C 4, C3, CH50 #### [facility] , #### CBC, CMP, ESR, ADDONUAPLUS, CRP #### [place] [address] [place] Calcium [Mass/volume] in Ser um or PlasmaOrdered By: Sabrina Manriquez on 07-18-2023 Calcium [Mass/Vol] 9.2 mg/dL Normal 8.6-10.3 [facility] Comment on above: Performed By: #### C 4, C3, CH50 #### [facility] , #### CBC, CMP, ESR, ADDONUAPLUS, CRP #### [place] [address] [place] Carbon dioxide, total [Moles /volume] in Serum or PlasmaOrdered By: Sabrina Manriquez on 07-18-2023 CO2 [Moles/Vol] 30.1 mmol/L Normal 21.0-31.0 [facility] Comment on above: Performed By: #### C 4, C3, CH50 #### [facility] , #### CBC, CMP, ESR, ADDONUAPLUS, CRP #### [place] [address] [place] Chloride [Moles/volume] in S lenny or PlasmaOrdered By: Sabrina Manriquez on 07-18-2023 Chloride [Moles/Vol] 105 mmol/L Normal 98-107 [facility] Comment on above: Performed By: #### C 4, C3, CH50 #### [facility] , #### CBC, CMP, ESR, ADDONUAPLUS, CRP #### [address] Complement C3on 07-18-2023 Complement C3 118 mg/dL Normal 82-167 [facility] Comment on above: Result Comment: Perf ormed at: - [facility] [address] [id number] Hand Bender: Derek Toscano PhD, Phone: [phone] Performed By: #### C 4, C3, CH50 #### [facility] , #### CBC, CMP, ESR, ADDONUAPLUS, CRP #### [address] Complement C4on 07-18-2023 Complement C4 23 mg/dL Normal 12-38 [facility] Comment on above: Result Comment: PERF ORMED BY: [place] [address] PATHOLOGIST [employer]ING DEPARTMENT SUPERVISOR KRISTIE BAKER M.D. Performed By: #### C 4, C3, CH50 #### [facility] , #### CBC, CMP, ESR, ADDONUAPLUS, CRP #### [place] [address] [place] Complement Total (CH50)on Complement Total (CH50) 51 Normal >41 [facility] Comment on above: Result [...] of range values. Performed at: - [facility] [address], [place], [place] [id number] Hand Bender: Derek Toscano PhD, Phone: [phone] PERFORMED BY: [place] [address] PATHOLOGIST [employer]OVING DEPARTMENT SUPERVISOR KRISTIE BAKER M.D. Performed By: #### C 4, C3, CH50 #### [facility] , #### CBC, CMP, ESR, ADDONUAPLUS, CRP #### [address] Complete Blood Count Auto Di ffon 07-18-2023 Mean Corpuscular HGB Conc 34.2 g/dL Normal 32.5-35.6 [facility] Comment on above: Performed By: #### C 4, C3, CH50 #### [facility] , #### CBC, CMP, ESR, ADDONUAPLUS, CRP #### [address] NRBC% 0.1 /100{WBC} Normal 0-0.5 [facility] Comment on above: Performed By: #### C 4, C3, CH50 #### [facility] , #### CBC, CMP, ESR, ADDONUAPLUS, CRP #### [address] Comprehensive Metabolic Pane tanika 07-18-2023 Albumin [Mass/Vol] 4.3 g/dL Normal 3.5-5.7 [facility] Comment on above: Performed By: #### C 4, C3, CH50 #### [facility] , #### CBC, CMP, ESR, ADDONUAPLUS, CRP #### [address] GFR/1.73 sq M.predicted MDRD (S/P/Bld) [Vol rate/Area] mL/min/{1.73_m2} Normal [facility] Comment on above: Performed By: #### C 4, C3, CH50 #### [facility] , #### CBC, CMP, ESR, ADDONUAPLUS, CRP #### [facility] [address] [place] [address] Creatinine [Mass/volume] in Serum or PlasmaOrdered By: Sabrina Manriquez on 07-18-2023 Creatinine [Mass/Vol] 0.93 mg/dL Normal 0.70-1.30 [facility] Comment on above: Performed By: #### C 4, C3, CH50 #### [facility] , #### CBC, CMP, ESR, ADDONUAPLUS, CRP #### [place] [address] [place] Dipstick and Microscopicon 0 07-18-2023 Appearance (U) Clear Normal Clear [facility] Comment on above: Order Comment: Name Collection Type:: Clean-Voided Midstream Performed By: #### C 4, C3, CH50 #### [facility] , #### CBC, CMP, ESR, ADDONUAPLUS, CRP #### [facility] [address] [place] [address] Bacteria,Urine None Seen Normal None Seen [facility] Comment on above: Order Comment: Name Collection Type:: Clean-Voided Midstream Performed By: #### C 4, C3, CH50 #### [facility] , #### CBC, CMP, ESR, ADDONUAPLUS, CRP #### [facility] [address] [place] [address] [place] Bilirubin,Urine Negative Normal Negative [facility] Comment on above: Order Comment: Name Collection Type:: Clean-Voided Midstream Performed By: #### C 4, C3, CH50 #### [facility] , #### CBC, CMP, ESR, ADDONUAPLUS, CRP #### [place] [address] [place] Glucose Ql (U) Normal Normal Normal [facility] Comment on above: Order Comment: Name Collection Type:: Clean-Voided Midstream Performed By: #### C 4, C3, CH50 #### [facility] , #### CBC, CMP, ESR, ADDONUAPLUS, CRP #### [address] Hyaline Casts,Urine None Seen Normal 0-8 [facility] Comment on above: Order Comment: Name Collection Type:: Clean-Voided Midstream Result Comment: PERF ORMED BY: [place] [address] PATHOLOGIST [employer]OVING DEPARTMENT SUPERVISOR KRISTIE BAKER M.D. Performed By: #### C 4, C3, CH50 #### [facility] , #### CBC, CMP, ESR, ADDONUAPLUS, CRP #### [address] Ketones Ql (U) Trace High Negative [facility] Comment on above: Order Comment: Name Collection Type:: Clean-Voided Midstream Performed By: #### C 4, C3, CH50 #### [facility] , #### CBC, CMP, ESR, ADDONUAPLUS, CRP #### [address] Leukocyte esterase Test strip Ql (U) Negative Normal Negative [facility] Comment on above: Order Comment: Name Collection Type:: Clean-Voided Midstream Performed By: #### C 4, C3, CH50 #### [facility] , #### CBC, CMP, ESR, ADDONUAPLUS, CRP #### [address] Nitrite,Urine Negative Normal Negative [facility] Comment on above: Order Comment: Name Collection Type:: Clean-Voided Midstream Performed By: #### C 4, C3, CH50 #### [facility] , #### CBC, CMP, ESR, ADDONUAPLUS, CRP #### [address] Occult Blood,Urine Negative Normal Negative [facility] Comment on above: Order Comment: Name Collection Type:: Clean-Voided Midstream Performed By: #### C 4, C3, CH50 #### [facility] , #### CBC, CMP, ESR, ADDONUAPLUS, CRP #### [address] Protein,Urine Negative Normal Negative [facility] Comment on above: Order Comment: Name Collection Type:: Clean-Voided Midstream Performed By: #### C 4, C3, CH50 #### [facility] , #### CBC, CMP, ESR, ADDONUAPLUS, CRP #### [address] RBC LM.HPF (Urine sed) [#/Area] 0 /[HPF] Normal 0-4 [facility] Comment on above: Order Comment: Name Collection Type:: Clean-Voided Midstream Performed By: #### C 4, C3, CH50 #### [facility] , #### CBC, CMP, ESR, ADDONUAPLUS, CRP #### [address] Specificy [place],Urine 1.023 Normal 1.001-1.03 0 [facility] Comment on above: Order Comment: Name Collection Type:: Clean-Voided Midstream Performed By: #### C 4, C3, CH50 #### [facility] , #### CBC, CMP, ESR, ADDONUAPLUS, CRP #### [address] Squamous Epithelial Cell,Urine None Seen Normal 0-2 [facility] Comment on above: Order Comment: Name Collection Type:: Clean-Voided Midstream Performed By: #### C 4, C3, CH50 #### [facility] , #### CBC, CMP, ESR, ADDONUAPLUS, CRP #### [address] Urobilinogen,Urine Normal Normal Normal [facility] Comment on above: Order Comment: Name Collection Type:: Clean-Voided Midstream Performed By: #### C 4, C3, CH50 #### [facility] , #### CBC, CMP, ESR, ADDONUAPLUS, CRP #### [address] WBC LM.HPF (Urine sed) [#/Area] 0 /[HPF] Normal 0-4 [facility] Comment on above: Order Comment: Name Collection Type:: Clean-Voided Midstream Performed By: #### C 4, C3, CH50 #### [facility] , #### CBC, CMP, ESR, ADDONUAPLUS, CRP #### [address] Erythrocyte Sedimentation Ra natan 07-18-2023 ESR (Bld) [Velocity] 7 mm/h Normal 0-19 [facility] Comment on above: Result Comment: PERF ORMED BY: [place] [address] PATHOLOGIST [employer] DEPARTMENT SUPERVISOR KRISTIE BAKER M.D. Performed By: #### C 4, C3, CH50 #### [facility] , #### CBC, CMP, ESR, ADDONUAPLUS, CRP #### [address] Erythrocyte distribution wid th [Ratio] by Automated countOrdered By: Sabrina Manriquez on 07-18-2023 Erythrocyte distribution width (RBC) [Ratio] 13.9 % Normal 12.0-14.8 [facility] Comment on above: Performed By: #### C 4, C3, CH50 #### [facility] , #### CBC, CMP, ESR, ADDONUAPLUS, CRP #### [facility] [address] Erythrocyte sedimentation ra te by Photometric methodOrdered By: Sabrina Manriquez on 07-18-2023 ESR Photometric method (Bld) [Velocity] 7 mm/hr 0-19 [facility] Erythrocytes [#/volume] in B lood by Automated countOrdered By: Sabrina Manriquez on 07-18-2023 RBC (Bld) [#/Vol] 4.69 10*6/uL Normal 3.90-5.60 [facility] Comment on above: Performed By: #### C 4, C3, CH50 #### [facility] , #### CBC, CMP, ESR, ADDONUAPLUS, CRP #### [place] [address] [place] Glucose [Mass/volume] in Ser um or PlasmaOrdered By: Sabrina Manriquez on 07-18-2023 Glucose [Mass/Vol] 89 mg/dL Normal 70-100 [facility] Comment on above: ADA recommended refe rence rangeRandom Glucose Reference Range is dependent on time and content of last meal. Glucose of more than 200 mg/dL in a nonstressed, ambulatory subject supports the diagnosis of Diabetes Mellitus. Result Comment: [place] om Glucose Reference Range is dependent on time and content of last meal. Glucose of more than 200 mg/dL in a nonstressed, ambulatory subject supports the diagnosis of Diabetes Mellitus. ADA recommended reference range Performed By: #### C 4, C3, CH50 #### [facility] , #### CBC, CMP, ESR, ADDONUAPLUS, CRP #### [facility] [address] [place] [address] [place] Hematocrit [Volume Fraction] of Blood by Automated countOrdered By: Sabrina Manriquez on 07-18-2023 Hematocrit (Bld) [Volume fraction] 44.3 % Normal 38.8-50.0 [facility] Comment on above: Performed By: #### C 4, C3, CH50 #### [facility] , #### CBC, CMP, ESR, ADDONUAPLUS, CRP #### [facility] [address] [place] [address] [place] Hemoglobin [Mass/volume] in BloodOrdered By: Sabrina Manriquez on 07-18-2023 Hemoglobin (Bld) [Mass/Vol] 15.2 g/dL Normal 13.0-17.0 [facility] Comment on above: Performed By: #### C 4, C3, CH50 #### [facility] , #### CBC, CMP, ESR, ADDONUAPLUS, CRP #### [facility] [address] Ketones Auto test strip (U) [Mass/Vol]Ordered By: Sabrina Manriquez on 07-18-2023 Ketones (U) [Mass/Vol] Trace Negative [facility] - UrinalysisOrder ed By: Sabrina Manriquez on 07-18-2023 Hyaline casts LM Ql (Urine sed) None seen [LPF] 0-8 [facility] Leukocytes [#/volume] correc leah for nucleated erythrocytes in Blood by Automated counOrdered By: Sabrina Manriquez on 07-18-2023 WBC corrected for nucl RBC Auto (Bld) [#/Vol] 6.3 10*3/uL 4.1-10.5 [facility] Leukocytes [#/volume] in Blo od by Automated countOrdered By: Sabrina Manriquez on 07-18-2023 WBC (Bld) [#/Vol] 6.3 10*3/uL Normal 4.1-10.5 [facility] Comment on above: Performed By: #### C 4, C3, CH50 #### [facility] , #### CBC, CMP, ESR, ADDONUAPLUS, CRP #### [facility] [address] [place] [address] [place] Lymphocytes [#/volume] in Bl ood by Automated countOrdered By: Sabrina Manriquez on 07-18-2023 Lymphocytes (Bld) [#/Vol] 0.9 10*3/uL Low 1.00-4.8 [facility] Comment on above: Performed By: #### C 4, C3, CH50 #### [facility] , #### CBC, CMP, ESR, ADDONUAPLUS, CRP #### [address] Lymphocytes/100 leukocytes i n Blood by Automated countOrdered By: Sabrina Manriquez on 07-18-2023 Lymphocytes/100 WBC (Bld) 15.1 % Normal . [facility] Comment on above: Performed By: #### C 4, C3, CH50 #### [facility] , #### CBC, CMP, ESR, ADDONUAPLUS, CRP #### [address] MCH [Entitic mass] by Automa leah countOrdered By: Sabrina Manriquez on 07-18-2023 MCH (RBC) [Entitic mass] 32.3 pg Normal 27.5-35.2 [facility] Comment on above: Performed By: #### C 4, C3, CH50 #### [facility] , #### CBC, CMP, ESR, ADDONUAPLUS, CRP #### [address] MCHC Auto (RBC) [Mass/Vol]Or dered By: Sabrina Manriquez on 07-18-2023 MCHC (RBC) [Mass/Vol] 34.2 g/dL 32.5-35.6 [facility] MCV [Entitic volume] by Auto mated countOrdered By: Sabrina Manriquez on 07-18-2023 MCV (RBC) [Entitic vol] 94.4 fL Normal 83.5-101 [facility] Comment on above: Performed By: #### C 4, C3, CH50 #### [facility] , #### CBC, CMP, ESR, ADDONUAPLUS, CRP #### [address] Neutrophils [#/volume] in Bl ood by Automated countOrdered By: Sabrina Manriquez on 07-18-2023 Neutrophils (Bld) [#/Vol] 4.7 10*3/uL Normal 1.8-7.7 [facility] Comment on above: Performed By: #### C 4, C3, CH50 #### [facility] , #### CBC, CMP, ESR, ADDONUAPLUS, CRP #### [facility] [address] [place] [address] Nitrite Test strip Ql (U)Ord ered By: Sabrina Manriquez on 07-18-2023 Nitrite Ql (U) Negative Negative [facility] No Panel InformationOrdered By: Sabrina Manriquez on 07-18-2023 Estimated GFR (CKD-EPI) > 60.0 mL/Min [facility] Creatinine Clearance (Chem N/A [facility] Nucleated erythrocytes [Pres ence] in Blood by Automated countOrdered By: Sabrina Manriquez on 07-18-2023 Nucleated RBC Auto Ql (Bld) 0.1 /100{WBC} 0-0.5 [facility] Platelet mean volume [Entiti c volume] in Blood by Automated countOrdered By: Sabrina Manriquez on 07-18-2023 Platelet mean volume (Bld) [Entitic vol] 8.8 fL Normal 6.6-10.1 [facility] Comment on above: Performed By: #### C 4, C3, CH50 #### [facility] , #### CBC, CMP, ESR, ADDONUAPLUS, CRP #### [facility] [address] [place] [address] Platelets [#/volume] in Bloo d by Automated countOrdered By: Sabrina Manriquez on 07-18-2023 Platelets (Bld) [#/Vol] 235 10*3/uL Normal 150-450 [facility] Comment on above: Performed By: #### C 4, C3, CH50 #### [facility] , #### CBC, CMP, ESR, ADDONUAPLUS, CRP #### [facility] [address] [place] [address] Potassium [Moles/volume] in Serum or PlasmaOrdered By: Sabrina Manriquez on 07-18-2023 Potassium [Moles/Vol] 4.1 mmol/L Normal 3.5-5.1 [facility] Comment on above: Performed By: #### C 4, C3, CH50 #### [facility] , #### CBC, CMP, ESR, ADDONUAPLUS, CRP #### [address] Protein Auto test strip (U) [Mass/Vol]Ordered By: Sabrina Manriquez on 07-18-2023 Protein (U) [Mass/Vol] Negative Negative [facility] Protein [Mass/volume] in Ser um or PlasmaOrdered By: Sabrina Manriquez on 07-18-2023 Protein [Mass/Vol] 6.8 g/dL Normal 6.4-8.9 [facility] Comment on above: Performed By: #### C 4, C3, CH50 #### [facility] , #### CBC, CMP, ESR, ADDONUAPLUS, CRP #### [address] Serum globulin measurement b y calculation (mass/volume)Ordered By: Sabrina Manriquez on 07-18-2023 Globulin (S) [Mass/Vol] 2.5 g/dL [facility] Comment on above: Performed By: #### C 4, C3, CH50 #### [facility] , #### CBC, CMP, ESR, ADDONUAPLUS, CRP #### [facility] [address] [place] [address] Serum or plasma albumin/glob ulin mass ratioOrdered By: Sabrina Manriquez on 07-18-2023 Albumin/Globulin [Mass ratio] 1.7 {ratio} [facility] Comment on above: Performed By: #### C 4, C3, CH50 #### [facility] , #### CBC, CMP, ESR, ADDONUAPLUS, CRP #### [facility] [address] Serum or plasma anion gap de terminationOrdered By: Sabrina Manriquez on 07-18-2023 Anion gap [Moles/Vol] 9.0 mmol/L Normal 6.0-15.0 [facility] Comment on above: Performed By: #### C 4, C3, CH50 #### [facility] , #### CBC, CMP, ESR, ADDONUAPLUS, CRP #### [facility] [address] Sodium [Moles/volume] in Ser um or PlasmaOrdered By: Sabrina Manriquez on 07-18-2023 Sodium [Moles/Vol] 140 mmol/L Normal 136-145 [facility] Comment on above: Performed By: #### C 4, C3, CH50 #### [facility] , #### CBC, CMP, ESR, ADDONUAPLUS, CRP #### [address] Specific gravity Auto test s trip (U) [Rel density]Ordered By: Sabrina Manriquez on 07-18-2023 Specific gravity (U) [Rel density] 1.023 1.001-1.03 0 [facility] Squamous epithelial cells de tection in urine sediment by light microscopyOrdered By: Sabrina Manriquez on 07-18-2023 Epithelial cells.squamous LM Ql (Urine sed) None seen [HPF] 0-2 [facility] Urea nitrogen [Mass/volume] in Serum or PlasmaOrdered By: Sabrina Manriquez on 07-18-2023 Urea nitrogen [Mass/Vol] 22 mg/dL Normal 7-25 [facility] Comment on above: Performed By: #### C 4, C3, CH50 #### [facility] , #### CBC, CMP, ESR, ADDONUAPLUS, CRP #### [facility] [address] [place] [id number] [facility] Urine bacteria detection by automated methodOrdered By: Sabrina Manriquez on 07-18-2023 Bacteria Auto Ql (U) None seen None Seen [facility] Urine clarity by refractomet ry automatedOrdered By: Sabrina Manriquez on 07-18-2023 Clarity Refractometry automated (U) Clear Clear [facility] Urine glucose measurement by automated test strip (mass/volume)Ordered By: Sabrina Manriquez on 07-18-2023 Glucose Auto test strip (U) [Mass/Vol] Normal mg/dL Normal [facility] Urine hemoglobin detection b y automated test stripOrdered By: Sabrina Manriquez on 07-18-2023 Hemoglobin Auto test strip Ql (U) Negative Negative [facility] Urine leukocyte esterase det ection by automated test stripOrdered By: Sabrina Manriquez on 07-18-2023 Leukocyte esterase Auto test strip Ql (U) Negative Negative [facility] Urine pH measurement by auto mated test stripOrdered By: Sabrina Manriquez on 07-18-2023 pH (U) 5.5 [pH] Normal 5.0-9.0 [facility] Comment on above: Order Comment: Name Collection Type:: Clean-Voided Midstream Performed By: #### C 4, C3, CH50 #### [facility] , #### CBC, CMP, ESR, ADDONUAPLUS, CRP #### [facility] [address] [place] [address] Urobilinogen Auto test strip (U) [Mass/Vol]Ordered By: Sabrina Manriquez on 07-18-2023 Urobilinogen (U) [Mass/Vol] Normal mg/dL Normal [facility] CNOVon 03-12-2023 CNOV Office Visit (ORFTMN ) -------- JAY CARR ([id number]) 1960 M Date Time Provider Department 03/12/23 [...] No PCP: Audrey Armstrong MD [address] [facility] [id number] FELLOW / RESIDENT: No fellow or resident assisted in th (more content not included)... Normal [facility] Alanine aminotransferase [En zymatic activity/volume] in Serum or PlasmaOrdered By: Hudson De Leon on 02-19-2023 ALT [Catalytic activity/Vol] 24 U/L 7-52 [facility] Albumin [Mass/volume] in Ser um or Plasma by Bromocresol green (BCG) dye binding methoOrdered By: Hudson De Leon on 02-19-2023 Albumin BCG dye [Mass/Vol] 4.1 g/dL 3.5-5.7 [facility] Alkaline phosphatase [Enzyma tic activity/volume] in Serum or PlasmaOrdered By: Hudson De Leon on 02-19-2023 ALP [Catalytic activity/Vol] 90 U/L 34-104 [facility] Aspartate aminotransferase [ Enzymatic activity/volume] in Serum or PlasmaOrdered By: Hudson De Leon on 02-19-2023 AST [Catalytic activity/Vol] 27 U/L 13-39 [facility] Automated erythrocytes count in urine sediment (number/area)Ordered By: Hudson De Leon on 02-19-2023 RBC Auto (Urine sed) [#/Area] 0-1 [HPF] 0-4 [facility] Automated leukocytes count i n urine sediment (number/area)Ordered By: Hudson De Leon on 02-19-2023 WBC Auto (Urine sed) [#/Area] None seen [HPF] 0-4 [facility] Basophils Auto (Bld) [#/Vol] Ordered By: Hudson De Leon on 02-19-2023 Basophils (Bld) [#/Vol] 0.0 10*3/uL 0.0-0.2 [facility] Basophils/100 WBC Auto (Bld) Ordered By: Hudson De Leon on 02-19-2023 Basophils/100 WBC (Bld) 0.7 % . [facility] Bilirubin Test strip Ql (U)O rdered By: Hudson De Leon on 02-19-2023 Bilirubin Ql (U) Negative Negative [facility] Bilirubin.total [Mass/volume ] in Serum or PlasmaOrdered By: Hudson De Leon on 02-19-2023 Bilirubin [Mass/Vol] 0.6 mg/dL 0.3-1.0 [facility] Calcium [Mass/volume] in Ser um or PlasmaOrdered By: Hudson De Leon on 02-19-2023 Calcium [Mass/Vol] 9.0 mg/dL 8.6-10.3 [facility] Carbon dioxide, total [Moles /volume] in Serum or PlasmaOrdered By: Hudsno De Leon on 02-19-2023 CO2 [Moles/Vol] 29.6 mmol/L 21.0-31.0 [facility] Chloride [Moles/volume] in S lenny or PlasmaOrdered By: Hudson De Leon on 02-19-2023 Chloride [Moles/Vol] 105 mmol/L 98-107 [facility] Color Auto (U)Ordered By: Jessica De Leon on 02-19-2023 Color (U) Yellow Yellow [facility] Creatinine [Mass/volume] in Serum or PlasmaOrdered By: Hudson De Leon on 02-19-2023 Creatinine [Mass/Vol] 0.95 mg/dL 0.70-1.30 [facility] Eosinophils Auto (Bld) [#/Vo l]Ordered By: Hudson De Leon on 02-19-2023 Eosinophils (Bld) [#/Vol] 0.0 10*3/uL 0.0-0.45 [facility] Eosinophils/100 WBC Auto (Bl d)Ordered By: Hudson De Leon on 02-19-2023 Eosinophils/100 WBC (Bld) 1.0 % . [facility] Erythrocyte distribution wid th Auto (RBC) [Ratio]Ordered By: Hudson De Leon on 02-19-2023 Erythrocyte distribution width (RBC) [Ratio] 13.6 % 12.0-14.8 [facility] Erythrocyte sedimentation ra te by Photometric methodOrdered By: Hudson De Leon on 02-19-2023 ESR Photometric method (Bld) [Velocity] 7 mm/hr 0-19 [facility] Globulin Calc (S) [Mass/Vol] Ordered By: Hudson De Leon on 02-19-2023 Globulin (S) [Mass/Vol] 2.6 g/dL [facility] Glucose [Mass/volume] in Ser um or PlasmaOrdered By: Hudson De Leon on 02-19-2023 Glucose [Mass/Vol] 108 mg/dL 70-100 [facility] Comment on above: ADA recommended refe rence rangeRandom Glucose Reference Range is dependent on time and content of last meal. Glucose of more than 200 mg/dL in a nonstressed, ambulatory subject supports the diagnosis of Diabetes Mellitus. Hematocrit Auto (Bld) [Volum e fraction]Ordered By: Hudson De Leon on 02-19-2023 Hematocrit (Bld) [Volume fraction] 42.3 % 38.8-50.0 [facility] Hemoglobin [Mass/volume] in BloodOrdered By: Hudson De Leon on 02-19-2023 Hemoglobin (Bld) [Mass/Vol] 14.3 g/dL 13.0-17.0 [facility] Ketones Auto test strip (U) [Mass/Vol]Ordered By: Hudson De Leon on 02-19-2023 Ketones (U) [Mass/Vol] Negative Negative [facility] - UrinalysisOrder ed By: Hudson De Leon on 02-19-2023 Hyaline casts LM Ql (Urine sed) None seen [LPF] 0-8 [facility] Leukocytes [#/volume] correc leah for nucleated erythrocytes in Blood by Automated counOrdered By: Hudson De Leon on 02-19-2023 WBC corrected for nucl RBC Auto (Bld) [#/Vol] 4.7 10*3/uL 4.1-10.5 [facility] Lymphocytes Auto (Bld) [#/Vo l]Ordered By: Hudson De Leon on 02-19-2023 Lymphocytes (Bld) [#/Vol] 0.9 10*3/uL 1.00-4.8 [facility] Lymphocytes/100 WBC Auto (Bl d)Ordered By: Hudson De Leon on 02-19-2023 Lymphocytes/100 WBC (Bld) 18.5 % . [facility] MCH Auto (RBC) [Entitic mass ]Ordered By: Hudson De Leon on 02-19-2023 MCH (RBC) [Entitic mass] 31.5 pg 27.5-35.2 [facility] MCHC Auto (RBC) [Mass/Vol]Or dered By: Hudson De Leon on 02-19-2023 MCHC (RBC) [Mass/Vol] 33.9 g/dL 32.5-35.6 [facility] MCV Auto (RBC) [Entitic vol] Ordered By: Hudson De Leon on 02-19-2023 MCV (RBC) [Entitic vol] 93.0 fL 83.5-101 [facility] Monocytes Auto (Bld) [#/Vol] Ordered By: Hudson De Leon on 02-19-2023 Monocytes (Bld) [#/Vol] 0.4 10*3/uL 0.0-0.8 [facility] Monocytes/100 WBC Auto (Bld) Ordered By: Hudson De Leon on 02-19-2023 Monocytes/100 WBC (Bld) 8.1 % . [facility] Neutrophils Auto (Bld) [#/Vo l]Ordered By: Hudson De Leon on 02-19-2023 Neutrophils (Bld) [#/Vol] 3.4 10*3/uL 1.8-7.7 [facility] Neutrophils/100 WBC Auto (Bl d)Ordered By: Hudson De Leon on 02-19-2023 Neutrophils/100 WBC (Bld) 71.7 % . [facility] Nitrite Test strip Ql (U)Ord ered By: Hudson De Leon on 02-19-2023 Nitrite Ql (U) Negative Negative [facility] No Panel InformationOrdered By: Hudson De Leon on 02-19-2023 Estimated GFR (CKD-EPI) > 60.0 mL/Min [facility] Creatinine Clearance (Chem N/A [facility] Nucleated erythrocytes [Pres ence] in Blood by Automated countOrdered By: Hudson De Leon on 02-19-2023 Nucleated RBC Auto Ql (Bld) 0.1 /100{WBC} 0-0.5 [facility] Platelet mean volume Auto (B ld) [Entitic vol]Ordered By: Hudson De Leon on 02-19-2023 Platelet mean volume (Bld) [Entitic vol] 9.0 fL 6.6-10.1 [facility] Platelets Auto (Bld) [#/Vol] Ordered By: Hudson De Leon on 02-19-2023 Platelets (Bld) [#/Vol] 198 10*3/uL 150-450 [facility] Potassium [Moles/volume] in Serum or PlasmaOrdered By: Hudson De Leon on 02-19-2023 Potassium [Moles/Vol] 4.0 mmol/L 3.5-5.1 [facility] Protein Auto test strip (U) [Mass/Vol]Ordered By: Hudson De Leon on 02-19-2023 Protein (U) [Mass/Vol] Negative Negative [facility] Protein [Mass/volume] in Ser um or PlasmaOrdered By: Hudson De Leon on 02-19-2023 Protein [Mass/Vol] 6.7 g/dL 6.4-8.9 [facility] RBC Auto (Bld) [#/Vol]Ordere d By: Hudson De Leon on 02-19-2023 RBC (Bld) [#/Vol] 4.55 10*6/uL 3.90-5.60 [facility] Serum or plasma albumin/glob ulin mass ratioOrdered By: Hudson De Leon on 02-19-2023 Albumin/Globulin [Mass ratio] 1.6 {ratio} [facility] Serum or plasma anion gap de terminationOrdered By: Hudson De Leon on 02-19-2023 Anion gap [Moles/Vol] 9.4 mmol/L 6.0-15.0 [facility] Sodium [Moles/volume] in Ser um or PlasmaOrdered By: Hudson De Leon on 02-19-2023 Sodium [Moles/Vol] 140 mmol/L 136-145 [facility] Specific gravity Auto test s trip (U) [Rel density]Ordered By: Hudson De Leon on 02-19-2023 Specific gravity (U) [Rel density] 1.018 1.001-1.03 0 [facility] Squamous epithelial cells de tection in urine sediment by light microscopyOrdered By: Hudson De Leon on 02-19-2023 Epithelial cells.squamous LM Ql (Urine sed) None seen [HPF] 0-2 [facility] Urea nitrogen [Mass/volume] in Serum or PlasmaOrdered By: Hudson De Leon on 02-19-2023 Urea nitrogen [Mass/Vol] 16 mg/dL 7 [facility] Urine bacteria detection by automated methodOrdered By: Hudson De Leon on 02-19-2023 Bacteria Auto Ql (U) None seen None Seen [facility] Urine clarity by refractomet ry automatedOrdered By: Hudson De Leon on 02-19-2023 Clarity Refractometry automated (U) Clear Clear [facility] Urine glucose measurement by automated test strip (mass/volume)Ordered By: Hudson De Leon on 02-19-2023 Glucose Auto test strip (U) [Mass/Vol] Normal mg/dL Normal [facility] Urine hemoglobin detection b y automated test stripOrdered By: Hudson De Leon on 02-19-2023 Hemoglobin Auto test strip Ql (U) Negative Negative [facility] Urine leukocyte esterase det ection by automated test stripOrdered By: Hudson De Leon on 02-19-2023 Leukocyte esterase Auto test strip Ql (U) Negative Negative [facility] Urobilinogen Auto test strip (U) [Mass/Vol]Ordered By: Hudson De Leon on 02-19-2023 Urobilinogen (U) [Mass/Vol] Normal mg/dL Normal [facility] WBC Auto (Bld) [#/Vol]Ordere d By: Hudson De Leon on 02-19-2023 WBC (Bld) [#/Vol] 4.7 10*3/uL 4.1-10.5 [facility] pH Auto test strip (U)Ordere d By: Hudson De Leon on 02-19-2023 pH (U) 5.5 [pH] 5.0-9.0 [facility] Alanine aminotransferase [En zymatic activity/volume] in Serum or PlasmaOrdered By: Hudson De Leon on 10-15-2022 ALT [Catalytic activity/Vol] 19 U/L [facility] Albumin [Mass/volume] in Ser um or Plasma by Bromocresol green (BCG) dye binding methoOrdered By: Hudson De Leon on 10-15-2022 Albumin BCG dye [Mass/Vol] 4.1 g/dL 3.5-5.7 [facility] Alkaline phosphatase [Enzyma tic activity/volume] in Serum or PlasmaOrdered By: Hudson De Leon on 10-15-2022 ALP [Catalytic activity/Vol] 89 U/L 34-104 [facility] Aspartate aminotransferase [ Enzymatic activity/volume] in Serum or PlasmaOrdered By: Hudson De Leon on 10-15-2022 AST [Catalytic activity/Vol] 19 U/L 13-39 [facility] Automated erythrocytes count in urine sediment (number/area)Ordered By: Hudson De Leon on 10-15-2022 RBC Auto (Urine sed) [#/Area] 1-2 [HPF] 0-4 [facility] Automated leukocytes count i n urine sediment (number/area)Ordered By: Hudson De Leon on 10-15-2022 WBC Auto (Urine sed) [#/Area] None seen [HPF] 0-4 [facility] Basophils Auto (Bld) [#/Vol] Ordered By: Hudson De Leon on 10-15-2022 Basophils (Bld) [#/Vol] 0.0 10*3/uL 0.0-0.2 [facility] Basophils/100 WBC Auto (Bld) Ordered By: Hudson De Leon on 10-15-2022 Basophils/100 WBC (Bld) 0.5 % . [facility] Bilirubin Test strip Ql (U)O rdered By: Hudson De Leon on 10-15-2022 Bilirubin Ql (U) Negative Negative [facility] Bilirubin.total [Mass/volume ] in Serum or PlasmaOrdered By: Hudson De Leon on 10-15-2022 Bilirubin [Mass/Vol] 0.6 mg/dL 0.3-1.0 [facility] Calcium [Mass/volume] in Ser um or PlasmaOrdered By: Hudson De Leon on 10-15-2022 Calcium [Mass/Vol] 8.5 mg/dL 8.6-10.3 [facility] Carbon dioxide, total [Moles /volume] in Serum or PlasmaOrdered By: Hudson De Leon on 10-15-2022 CO2 [Moles/Vol] 27.8 mmol/L 21.0-31.0 [facility] Chloride [Moles/volume] in S lenny or PlasmaOrdered By: Hudson De Leon on 10-15-2022 Chloride [Moles/Vol] 106 mmol/L 98-107 [facility] Color Auto (U)Ordered By: Jessica june Haley on 10-15-2022 Color (U) Yellow Yellow [facility] Creatinine [Mass/volume] in Serum or PlasmaOrdered By: Hudson De Leon on 10-15-2022 Creatinine [Mass/Vol] 1.09 mg/dL 0.70-1.30 [facility] Eosinophils Auto (Bld) [#/Vo l]Ordered By: Hudson De Leon on 10-15-2022 Eosinophils (Bld) [#/Vol] 0.1 10*3/uL 0.0-0.45 [facility] Eosinophils/100 WBC Auto (Bl d)Ordered By: Hudson De Leon on 10-15-2022 Eosinophils/100 WBC (Bld) 1.6 % . [facility] Erythrocyte distribution wid th Auto (RBC) [Ratio]Ordered By: Hudson De Leon on 10-15-2022 Erythrocyte distribution width (RBC) [Ratio] 14.2 % 12.0-14.8 [facility] Erythrocyte sedimentation ra te by Photometric methodOrdered By: Hudson De Leon on 10-15-2022 ESR Photometric method (Bld) [Velocity] 6 mm/hr 0-19 [facility] Globulin Calc (S) [Mass/Vol] Ordered By: Hudson De Leon on 10-15-2022 Globulin (S) [Mass/Vol] 2.8 g/dL [facility] Glucose [Mass/volume] in Ser um or PlasmaOrdered By: Hudson De Leon on 10-15-2022 Glucose [Mass/Vol] 139 mg/dL 70-100 [facility] Comment on above: ADA recommended refe rence rangeRandom Glucose Reference Range is dependent on time and content of last meal. Glucose of more than 200 mg/dL in a nonstressed, ambulatory subject supports the diagnosis of Diabetes Mellitus. Hematocrit Auto (Bld) [Volum e fraction]Ordered By: Hudson De Leon on 10-15-2022 Hematocrit (Bld) [Volume fraction] 42.6 % 38.8-50.0 [facility] Hemoglobin [Mass/volume] in BloodOrdered By: Hudson De Leon on 10-15-2022 Hemoglobin (Bld) [Mass/Vol] 14.4 g/dL 13.0-17.0 [facility] Ketones Auto test strip (U) [Mass/Vol]Ordered By: Hudson De Leon on 10-15-2022 Ketones (U) [Mass/Vol] Negative Negative [facility] - UrinalysisOrder ed By: Hudson De Leon on 10-15-2022 Hyaline casts LM Ql (Urine sed) None seen [LPF] 0-8 [facility] Leukocytes [#/volume] correc leah for nucleated erythrocytes in Blood by Automated counOrdered By: Hudson De Leon on 10-15-2022 WBC corrected for nucl RBC Auto (Bld) [#/Vol] 4.9 10*3/uL 4.1-10.5 [facility] Lymphocytes Auto (Bld) [#/Vo l]Ordered By: Hudson De Leon on 10-15-2022 Lymphocytes (Bld) [#/Vol] 1.0 10*3/uL 1.00-4.8 [facility] Lymphocytes/100 WBC Auto (Bl d)Ordered By: Hudson De Leon on 10-15-2022 Lymphocytes/100 WBC (Bld) 20.0 % . [facility] MCH Auto (RBC) [Entitic mass ]Ordered By: Hudson De Leon on 10-15-2022 MCH (RBC) [Entitic mass] 31.2 pg 27.5-35.2 [facility] MCHC Auto (RBC) [Mass/Vol]Or dered By: Hudson De Leon on 10-15-2022 MCHC (RBC) [Mass/Vol] 33.7 g/dL 32.5-35.6 [facility] MCV Auto (RBC) [Entitic vol] Ordered By: Hudson De Leon on 10-15-2022 MCV (RBC) [Entitic vol] 92.8 fL 83.5-101 [facility] Monocytes Auto (Bld) [#/Vol] Ordered By: Hudson De Leon on 10-15-2022 Monocytes (Bld) [#/Vol] 0.4 10*3/uL 0.0-0.8 [facility] Monocytes/100 WBC Auto (Bld) Ordered By: Hudson De Leon on 10-15-2022 Monocytes/100 WBC (Bld) 8.6 % . [facility] Neutrophils Auto (Bld) [#/Vo l]Ordered By: Hudson De Leon on 10-15-2022 Neutrophils (Bld) [#/Vol] 3.4 10*3/uL 1.8-7.7 [facility] Neutrophils/100 WBC Auto (Bl d)Ordered By: Hudson De Leon on 10-15-2022 Neutrophils/100 WBC (Bld) 69.3 % . [facility] Nitrite Test strip Ql (U)Ord ered By: Hudson De Leon on 10-15-2022 Nitrite Ql (U) Negative Negative [facility] No Panel InformationOrdered By: Hudson De Leon on 10-15-2022 Estimated GFR (CKD-EPI) > 60.0 mL/Min [facility] Creatinine Clearance (Chem N/A [facility] Nucleated erythrocytes [Pres ence] in Blood by Automated countOrdered By: Hudson De Leon on 10-15-2022 Nucleated RBC Auto Ql (Bld) 0.1 /100{WBC} 0-0.5 [facility] Platelet mean volume Auto (B ld) [Entitic vol]Ordered By: Hudson De Leon on 10-15-2022 Platelet mean volume (Bld) [Entitic vol] 9.1 fL 6.6-10.1 [facility] Platelets Auto (Bld) [#/Vol] Ordered By: Hudson De Leon on 10-15-2022 Platelets (Bld) [#/Vol] 196 10*3/uL 150-450 [facility] Potassium [Moles/volume] in Serum or PlasmaOrdered By: Hudson De Leon on 10-15-2022 Potassium [Moles/Vol] 4.4 mmol/L 3.5-5.1 [facility] Protein Auto test strip (U) [Mass/Vol]Ordered By: Hudson De Leon on 10-15-2022 Protein (U) [Mass/Vol] Negative Negative [facility] Protein [Mass/volume] in Ser um or PlasmaOrdered By: Hudson De Leon on 10-15-2022 Protein [Mass/Vol] 6.9 g/dL 6.4-8.9 [facility] RBC Auto (Bld) [#/Vol]Ordere d By: Hudson De Leon on 10-15-2022 RBC (Bld) [#/Vol] 4.60 10*6/uL 3.90-5.60 [facility] Serum or plasma albumin/glob ulin mass ratioOrdered By: Hudson De Leon on 10-15-2022 Albumin/Globulin [Mass ratio] 1.5 {ratio} [facility] Serum or plasma anion gap de terminationOrdered By: Hudson De Leon on 10-15-2022 Anion gap [Moles/Vol] 9.6 mmol/L 6.0-15.0 [facility] Sodium [Moles/volume] in Ser um or PlasmaOrdered By: Hudson De Leon on 10-15-2022 Sodium [Moles/Vol] 139 mmol/L 136-145 [facility] Specific gravity Auto test s trip (U) [Rel density]Ordered By: Hudson De Leon on 10-15-2022 Specific gravity (U) [Rel density] 1.022 1.001-1.03 0 [facility] Squamous epithelial cells de tection in urine sediment by light microscopyOrdered By: Hudson De Leon on 10-15-2022 Epithelial cells.squamous LM Ql (Urine sed) None seen [HPF] 0-2 [facility] Urea nitrogen [Mass/volume] in Serum or PlasmaOrdered By: Hudson De Leon on 10-15-2022 Urea nitrogen [Mass/Vol] 24 mg/dL 7-25 [facility] Urine bacteria detection by automated methodOrdered By: Hudson De Leon on 10-15-2022 Bacteria Auto Ql (U) None seen None Seen [facility] Urine clarity by refractomet ry automatedOrdered By: Hudson De Leon on 10-15-2022 Clarity Refractometry automated (U) Clear Clear [facility] Urine glucose measurement by automated test strip (mass/volume)Ordered By: Hudson De Leon on 10-15-2022 Glucose Auto test strip (U) [Mass/Vol] Normal mg/dL Normal [facility] Urine hemoglobin detection b y automated test stripOrdered By: Hudson De Leon on 10-15-2022 Hemoglobin Auto test strip Ql (U) Negative Negative [facility] Urine leukocyte esterase det ection by automated test stripOrdered By: Hudson De Leon on 10-15-2022 Leukocyte esterase Auto test strip Ql (U) Negative Negative [facility] Urobilinogen Auto test strip (U) [Mass/Vol]Ordered By: Hudson De Leon on 10-15-2022 Urobilinogen (U) [Mass/Vol] Normal mg/dL Normal [facility] WBC Auto (Bld) [#/Vol]Ordere d By: Hudson De Leon on 10-15-2022 WBC (Bld) [#/Vol] 4.9 10*3/uL 4.1-10.5 [facility] pH Auto test strip (U)Ordere d By: Hudson De Leon on 10-15-2022 pH (U) 5.5 [pH] 5.0-9.0 [facility] Covid-19 PCR (CVDTB)on 08-23 SARS-CoV-2 (COVID-19) RNA LU+probe Ql (Unsp spec) Not detected Normal NOT DETECTED [facility] Comment on above: Result Comment: This test is not yet approved or cleared by the [place] FDA. When there are no FDA-approved or cleared tests available, and other criteria are met, FDA can make tests available under an emergency access mechanism called an Emergency Use Authorization (EUA). The EUA for this test is supported by the [place] of Health and Human Service's (HHS's) declaration [...] SARS-CoV-2. Performed By: #### I NSULIN #### [facility] [address] [place] [address] Dr. Carolyn King SYMPTOMATIC COVID-19 ANTIGEN on 09-11-2022 EUA Statement SEE BELOW Normal [facility] Comment on above: Result Comment: This [...] sooner. Performed By: #### C VDAGS #### [facility] [address] [place] [address] Dr. Carolyn King SARS-CoV-2 (COVID-19) RNA LU+probe Ql (Unsp spec) Negative Normal NEGATIVE [facility] Comment on above: Performed By: #### C VDAGS #### [facility] [address] FOOT RT WO [...] LAURY ZEPEDA Date: 2022-08-31 08:09 Normal [facility] US SINGLE QUAD RT UPPERon US [...] by: LAURY ZEPEDA Date: 2022-08-31 07:[address] [facility] POINT OF CARE GLUCOSEon - Glucose [Mass/Vol] 125 mg/dL Critically high 74-106 [facility] Comment on above: Performed By: #### I NSULIN #### [facility] [address] [place] [address] Dr. Carolyn King Glucose [Mass/Vol] 105 mg/dL Normal 74-106 [facility] Comment on above: Performed By: #### I NSULIN #### [facility] [address] [place] [address] Dr. Carolyn King XR FOOT RT 2Von [...] BANDAR SAENZ Date: 2022-06-07 14:29 Normal [facility] Covid-19 PCR (CVDTB)on 05-24 SARS-CoV-2 (COVID-19) RNA LU+probe Ql (Unsp spec) Not detected Normal NOT DETECTED [facility] Comment on above: Result Comment: This test is not yet approved or cleared by the [place] FDA. When there are no FDA-approved or cleared tests available, and other criteria are met, FDA can make tests available under an emergency access mechanism called an Emergency Use Authorization (EUA). The EUA for this test is supported by the [employer] of Health and Human Service's (HHS's) declaration [...] SARS-CoV-2. Performed By: #### I NSULIN #### [facility] [address] [place] [address] Dr. Carolyn King Albumin [Mass/volume] in Ser um or PlasmaOrdered By: Hudson De Leon on 05-23-2022 Albumin [Mass/Vol] 3.9 g/dL 3.2-5.5 [facility] Automated erythrocytes count in urine sediment (number/area)Ordered By: Hudson De Leon on 05-23-2022 RBC Auto (Urine sed) [#/Area] None seen [HPF] 0-4 [facility] Automated leukocytes count i n urine sediment (number/area)Ordered By: Hudson De Leon on 05-23-2022 WBC Auto (Urine sed) [#/Area] None seen [HPF] 0-4 [facility] Basophils Auto (Bld) [#/Vol] Ordered By: Hudson De Leon on 05-23-2022 Basophils (Bld) [#/Vol] 0.0 10*3/uL 0.0-0.2 [facility] Basophils/100 WBC Auto (Bld) Ordered By: Hudson De Leon on 05-23-2022 Basophils/100 WBC (Bld) 0.6 % . [facility] Bilirubin Test strip Ql (U)O rdered By: Hudson De Leon on 05-23-2022 Bilirubin Ql (U) Negative Negative [facility] Color Auto (U)Ordered By: Jessica De Leon on 05-23-2022 Color (U) Yellow Yellow [facility] Creatinine and Glomerular fi ltration rate.predicted panel (S/P/Bld)Ordered By: Hudson De Leon on 05-23-2022 Creatinine [Mass/Vol] 0.92 mg/dL 0.64-1.27 [facility] Eosinophils Auto (Bld) [#/Vo l]Ordered By: Hudson De Leon on 05-23-2022 Eosinophils (Bld) [#/Vol] 0.0 10*3/uL 0.0-0.45 [facility] Eosinophils/100 WBC Auto (Bl d)Ordered By: Hudson De Leon on 05-23-2022 Eosinophils/100 WBC (Bld) 0.9 % . [facility] Erythrocyte distribution wid th Auto (RBC) [Ratio]Ordered By: Hudson De Leon on 05-23-2022 Erythrocyte distribution width (RBC) [Ratio] 13.4 % 12.0-14.8 [facility] Erythrocyte sedimentation ra te by Photometric methodOrdered By: Hudosn De Leon on 05-23-2022 ESR Photometric method (Bld) [Velocity] 6 mm/hr 0-19 [facility] Estimated glomerular filtrat ion rate (GFR) non- AmericanOrdered By: Hudson De Leon on 05-23-2022 GFR/1.73 sq M.predicted among non-blacks MDRD (S/P/Bld) [Vol rate/Area] > 60 mL/Min [facility] Globulin Calc (S) [Mass/Vol] Ordered By: Hudson De Leon on 05-23-2022 Globulin (S) [Mass/Vol] 2.8 g/dL [facility] Hematocrit Auto (Bld) [Volum e fraction]Ordered By: Hudson De Leon on 05-23-2022 Hematocrit (Bld) [Volume fraction] 44.5 % 38.8-50.0 [facility] Hemoglobin [Mass/volume] in BloodOrdered By: Hudson De Leon on 05-23-2022 Hemoglobin (Bld) [Mass/Vol] 14.9 g/dL 13.0-17.0 [facility] Ketones Auto test strip (U) [Mass/Vol]Ordered By: Hudson De Leon on 05-23-2022 Ketones (U) [Mass/Vol] Negative Negative [facility] - UrinalysisOrder ed By: Hudson De Leon on 05-23-2022 Hyaline casts LM Ql (Urine sed) None seen [LPF] 0-8 [facility] Leukocytes [#/volume] correc leah for nucleated erythrocytes in Blood by Automated counOrdered By: Hudson De Leon on 05-23-2022 WBC corrected for nucl RBC Auto (Bld) [#/Vol] 5.2 10*3/uL 4.1-10.5 [facility] Lymphocytes Auto (Bld) [#/Vo l]Ordered By: Hudson De Leon on 05-23-2022 Lymphocytes (Bld) [#/Vol] 1.1 10*3/uL 1.00-4.8 [facility] Lymphocytes/100 WBC Auto (Bl d)Ordered By: Hudson De Leon on 05-23-2022 Lymphocytes/100 WBC (Bld) 21.1 % . [facility] MCH Auto (RBC) [Entitic mass ]Ordered By: Hudson De Leon on 05-23-2022 MCH (RBC) [Entitic mass] 31.2 pg 27.5-35.2 [facility] MCHC Auto (RBC) [Mass/Vol]Or dered By: Hudson De Leon on 05-23-2022 MCHC (RBC) [Mass/Vol] 33.5 g/dL 32.5-35.6 [facility] MCV Auto (RBC) [Entitic vol] Ordered By: Hudson De Leon on 05-23-2022 MCV (RBC) [Entitic vol] 93.3 fL 83.5-101 [facility] Monocytes Auto (Bld) [#/Vol] Ordered By: Hudson De Leon on 05-23-2022 Monocytes (Bld) [#/Vol] 0.5 10*3/uL 0.0-0.8 [facility] Monocytes/100 WBC Auto (Bld) Ordered By: Hudson De Leon on 05-23-2022 Monocytes/100 WBC (Bld) 10.3 % . [facility] Neutrophils Auto (Bld) [#/Vo l]Ordered By: Hudson De Leon on 05-23-2022 Neutrophils (Bld) [#/Vol] 3.5 10*3/uL 1.8-7.7 [facility] Neutrophils/100 WBC Auto (Bl d)Ordered By: Hudson De Leon on 05-23-2022 Neutrophils/100 WBC (Bld) 67.1 % . [facility] Nitrite Test strip Ql (U)Ord ered By: Hudson De Leon on 05-23-2022 Nitrite Ql (U) Negative Negative [facility] No Panel InformationOrdered By: Hudson De Leon on 05-23-2022 Estimated GFR () > 60 mL/Min [facility] Comment on above: GFR estimated refere nce range: According to KDOQI guidelines, <60 ml/min/1.73m2 is sufficient to diagnose a patient with chronic kidney disease. Pharmacy Creatinine Clearance (Chem N/A [facility] Nucleated erythrocytes [Pres ence] in Blood by Automated countOrdered By: Hudson De Leon on 05-23-2022 Nucleated RBC Auto Ql (Bld) 0.2 /100{WBC} 0-0.5 [facility] Platelet mean volume Auto (B ld) [Entitic vol]Ordered By: Hudson De Leon on 05-23-2022 Platelet mean volume (Bld) [Entitic vol] 9.4 fL 6.6-10.1 [facility] Platelets Auto (Bld) [#/Vol] Ordered By: Hudson De Leon on 05-23-2022 Platelets (Bld) [#/Vol] 234 10*3/uL 150-450 [facility] Protein Auto test strip (U) [Mass/Vol]Ordered By: Hudson De Leon on 05-23-2022 Protein (U) [Mass/Vol] Negative [facility] Protein [Mass/volume] in Ser um or PlasmaOrdered By: Hudson De Leon on 05-23-2022 Protein [Mass/Vol] 6.7 g/dL 6.1-7.9 [facility] RBC Auto (Bld) [#/Vol]Ordere d By: Hudson De Leon on 05-23-2022 RBC (Bld) [#/Vol] 4.77 10*6/uL 3.90-5.60 [facility] Serum or plasma alanine gates otransferase measurement without P-5'-P (enzymatic activiOrdered By: Hudson De Leon on 05-23-2022 ALT No additional P-5'-P [Catalytic activity/Vol] 27 U/L 1060 [facility] Serum or plasma albumin/glob ulin mass ratioOrdered By: Hudson De Leon on 05-23-2022 Albumin/Globulin [Mass ratio] 1.4 {ratio} [facility] Serum or plasma alkaline amanda sphatase measurement (enzymatic activity/volume)Ordered By: Hudson De Leon on 05-23-2022 ALP [Catalytic activity/Vol] 90 U/L 32-92 [facility] Serum or plasma anion gap de terminationOrdered By: Hudson De Leon on 05-23-2022 Anion gap [Moles/Vol] 12.3 mmol/L 6.0-15.0 [facility] Serum or plasma aspartate am inotransferase measurement (enzymatic activity/volume)Ordered By: Hudson De Leon on 05-23-2022 AST [Catalytic activity/Vol] 31 U/L 10-42 [facility] Serum or plasma calcium karl urement (mass/volume)Ordered By: Hudson De Leon on 05-23-2022 Calcium [Mass/Vol] 9.1 mg/dL 8.2-10.2 [facility] Serum or plasma chloride reba surement (moles/volume)Ordered By: Hudson De Leon on 05-23-2022 Chloride [Moles/Vol] 102 mmol/L 95-114 [facility] Serum or plasma glucose karl urement (mass/volume)Ordered By: Hudson De Leon on 05-23-2022 Glucose [Mass/Vol] 75 mg/dL 70-100 [facility] Comment on above: ADA recommended refe rence rangeRandom Glucose Reference Range is dependent on time and content of last meal. Glucose of more than 200 mg/dL in a nonstressed, ambulatory subject supports the diagnosis of Diabetes Mellitus. Serum or plasma potassium me asurement (moles/volume)Ordered By: Hudson De Leon on 05-23-2022 Potassium [Moles/Vol] 4.0 mmol/L 3.5-5.1 [facility] Serum or plasma sodium measu rement (moles/volume)Ordered By: Hudson De Leon on 05-23-2022 Sodium [Moles/Vol] 137 mmol/L 136-146 [facility] Serum or plasma total biliru bin measurement (mass/volume)Ordered By: Hudson De Leon on 05-23-2022 Bilirubin [Mass/Vol] 0.6 mg/dL 0.3-1.2 [facility] Serum or plasma total carbon dioxide measurement (moles/volume)Ordered By: Hudson De Leon on 05-23-2022 CO2 [Moles/Vol] 26.7 mmol/L 22.0-30.0 [facility] Serum or plasma urea nitroge n measurement (mass/volume)Ordered By: Hudson De Leon on 05-23-2022 Urea nitrogen [Mass/Vol] 11 mg/dL 9-23 [facility] Specific gravity Auto test s trip (U) [Rel density]Ordered By: Hudson De Leon on 05-23-2022 Specific gravity (U) [Rel density] 1.014 1.001-1.03 0 [facility] Squamous epithelial cells de tection in urine sediment by light microscopyOrdered By: Hudson De Leon on 05-23-2022 Epithelial cells.squamous LM Ql (Urine sed) None seen [HPF] 0-2 [facility] Urine bacteria detection by automated methodOrdered By: Hudson De Leon on 05-23-2022 Bacteria Auto Ql (U) None seen None Seen [facility] Urine clarity by refractomet ry automatedOrdered By: Hudson De Leon on 05-23-2022 Clarity Refractometry automated (U) Clear Clear [facility] Urine glucose measurement by automated test strip (mass/volume)Ordered By: Hudson Catherinerow on 05-23-2022 Glucose Auto test strip (U) [Mass/Vol] Normal mg/dL Normal [facility] Urine hemoglobin detection b y automated test stripOrdered By: Hudson Catherinerow on 05-23-2022 Hemoglobin Auto test strip Ql (U) Negative Negative [facility] Urine leukocyte esterase det ection by automated test stripOrdered By: Hudson Catherinerow on 05-23-2022 Leukocyte esterase Auto test strip Ql (U) Negative Negative [facility] Urobilinogen Auto test strip (U) [Mass/Vol]Ordered By: Hudson Catherinerow on 05-23-2022 Urobilinogen (U) [Mass/Vol] Normal mg/dL Normal [facility] WBC Auto (Bld) [#/Vol]Ordere d By: Hudson Catherinerow on 05-23-2022 WBC (Bld) [#/Vol] 5.2 10*3/uL 4.1-10.5 [facility] pH Auto test strip (U)Ordere d By: Hudson Haley on 05-23-2022 pH (U) 5.5 [pH] 5.0-9.0 [facility] BN SPINE, CERVICAL, 2 OR 3 V IEWSon 05-02-2022 BN SPINE, CERVICAL, 2 OR 3 VIEWS Patient Name: JAY CARR STUDY: SPINE, CERVICAL, 2 OR 3 VIEWS; 05/02/2022 9:46 am INDICATION: cervical post op 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 COMPARISON: 08/03/2021 ACCESSION NUMBER(S): [id number] ORDERING CLINICIAN: KENTON LAWSON FINDINGS: Two views of the cervical spine. Patient is status post anterior cervical discectomy and fusion from C5-C7. No hardware complication. No acute fracture. No focal subluxation. Mild multilevel degenerative changes. IMPRESSION: Postsurgical changes status post ACDF from C5-C7. No hardware complication. Mild multilevel spondylosis. Electronically signed by: FRANCISCO FOLEY MD [facility] BN SPINE, LUMBOSACRAL; 2 OR 3 VIEWSon 05-02-2022 BN SPINE, LUMBOSACRAL; 2 OR 3 VIEWS Patient Name: JAY CARR STUDY: SPINE, LUMBOSACRAL; 2 OR 3 VIEWS; 05/02/2022 9:46 am INDICATION: AP/LAT M54.50: Lumbar back pain M48.062: Lumbar stenosis with neurogenic claudication. COMPARISON: 01/29/2022 ACCESSION NUMBER(S): [id number] ORDERING CLINICIAN: KENTON LAWSON FINDINGS: Two views [...] spondylosis. Electronically signed by: FRANCISCO FOLEY MD [facility] Established Visit (Orthopaed ic Surgery)on 05-02-2022 Established [...] Present Illness Jay is a pleasant 62-year-old xduig-gyhe-tetbitmm male who presents today with his for [...] INSULINon 03-29-2022 Insulin 14.5 uIU/mL Normal 2.6-24.[address] [facility] Comment on above: Performed By: #### I NSULIN #### [facility] [address] [address] [address] Carolyn King CBC AUTO DIFFon 03-28-2022 BASO # 0.0 103/ul Normal 0.0-0.[address] [facility] Comment on above: Performed By: #### C BC #### [facility] [address] [address] [address] Carolny King Basophils/100 WBC (Bld) 0.6 % Normal 0.2-2.[address] [facility] Comment on above: Performed By: #### C BC #### [facility] [address] [place] [address] Dr. Carolyn King EO # 0.1 103/ul Normal 0.0-0.[address] [facility] Comment on above: Performed By: #### C BC #### [facility] [address] [place] [address] Dr. Carolyn King Eosinophils/100 WBC (Bld) 1.6 % Normal 0.9-7.[address] [facility] Comment on above: Performed By: #### C BC #### [facility] [address] [place] [address] Dr. Carolyn King Erythrocyte distribution width (RBC) [Ratio] 13.2 % Normal 11.0-15.[address] [facility] Comment on above: Performed By: #### C BC #### [facility] [address] [place] [address] Dr. Carolyn King Hematocrit (Bld) [Volume fraction] 44.5 % Normal 42.0-54.[address] [facility] Comment on above: Performed By: #### C BC #### [facility] [address] [place] [address] Dr. Carolyn King Hemoglobin (Bld) [Mass/Vol] 15.0 g/dL Normal 14.0-18.[address] [facility] Comment on above: Performed By: #### C BC #### [facility] [address] [place] [address] Dr. Caroyln King IG # 0.01 10e3/ul Normal 0.00-0.[address] [facility] Comment on above: Performed By: #### C BC #### [facility] [address] [place] [address] Dr. Carolyn King IG % 0.2 % Normal 0.0-0.5 [facility] Comment on above: Performed By: #### C BC #### [facility] [address] [place] [address] Dr. Carolyn King LYMPH # 1.0 103/ul Critically low 1.2-3.8 [facility] Comment on above: Performed By: #### C BC #### [facility] [address] [place] [address] Dr. Carolyn King Lymphocytes/100 WBC (Bld) 15.8 % Critically low 20.5-60.[address] [facility] Comment on above: Performed By: #### C BC #### [facility] [address] [place] [address] Dr. Carolyn King MANUAL DIFF REQ NO Normal [facility] Comment on above: Performed By: #### C BC #### [facility] [address] [place] [address] Dr. Carolyn King MCH (RBC) [Entitic mass] 31.1 pg Normal 25.9-34.[address] [facility] Comment on above: Performed By: #### C BC #### [facility] [address] [place] [address] Dr. Carolyn King MCHC (RBC) [Mass/Vol] 33.7 g/dL Normal 29.9-35.[address] [facility] Comment on above: Performed By: #### C BC #### [facility] [address] [place] [address] Dr. Carolyn King MCV (RBC) [Entitic vol] 92.3 fL Normal 80.0-94.[address] [facility] Comment on above: Performed By: #### C BC #### [facility] [address] [place] [address] Dr. Carolyn King MONO # 0.7 103/ul Normal 0.3-0.[address] [facility] Comment on above: Performed By: #### C BC #### [facility] [address] [place] [address] Dr. Carolyn King Monocytes/100 WBC (Bld) 10.7 % Normal 1.7-12.0 [facility] Comment on above: Performed By: #### C BC #### [facility] [address] [place] [address] Dr. Carolyn King NEUT # 4.4 103/ul Normal 1.4-6.5 [facility] Comment on above: Performed By: #### C BC #### [facility] [address] [address] [address] Carolyn King Neutrophils/100 WBC (Bld) 71.1 % Normal 43.0-75.[address] [facility] Comment on above: Performed By: #### C BC #### [facility] [address] [address] [address] Carolyn King Platelet mean volume (Bld) [Entitic vol] 10.2 fL Normal 9.5-13.5 [facility] Comment on above: Performed By: #### C BC #### [facility] [address] [address] [address] Carolyn King PLT 242 103/ul Normal 150-450 [facility] Comment on above: Performed By: #### C BC #### [facility] [address] [place] [address] Dr. Carolyn King RBC 4.82 106/ul Normal 4.70-6.10 [facility] Comment on above: Performed By: #### C BC #### [facility] [address] [place] [address] Dr. Carolyn King WBC 6.2 103/ul Normal 4.0-11.0 [facility] Comment on above: Performed By: #### C BC #### [facility] [address] [place] [address] Dr. Carolyn King FREE THYROXINE INDEX T7on FTI 2.55 Normal 1.30-4.50 [facility] Comment on above: Performed By: #### U ALLEN, TSH, T7, LIPID, CMP #### [facility] [address] [address] [address] Carolyn King T3U 30.0 % Critically low 33.0-40.0 [facility] Comment on above: Performed By: #### U ALLEN, TSH, T7, LIPID, CMP #### [facility] [address] [address] [address] Carolyn King T4 [Mass/Vol] 8.50 ug/dL Normal 4.50-12.10 [facility] Comment on above: Performed By: #### U ALLEN, TSH, T7, LIPID, CMP #### [facility] [address] [place] [address] Dr. Carolyn King GLYCOHEMOGLOBIN A1Con 2021 ADA RECOMMENDATION SEE BELOW Normal [facility] Comment on above: Result Comment: ADA RECOMMENDED LIMIT 4.0 - 6.0 ADA THERAPEUTIC TARGET < 7.0 ACTION SUGGESTED > 7.0 Performed By: #### A 1C #### [facility] [address] [address] [address] Carolyn King Glucose [Mass/Vol] 103 mg/dL Normal 74-106 [facility] Comment on above: Performed By: #### A 1C #### [facility] [address] [place] [address] Dr. Carolyn King Performed By: #### U ALLEN, TSH, T7, LIPID, CMP #### [facility] [address] [place] [address] Dr. Carolyn King HbA1c (Bld) [Mass fraction] 5.2 % Normal 4.5-6.[address] [facility] Comment on above: Performed By: #### A 1C #### [facility] [address] [place] [address] Dr. Carolyn King LIPID PROFILEon 03-28-2022 CHOL-HDL RATIO NORM SEE BELOW Normal [facility] Comment on above: Result Comment: 3.3 - 4.4 LOW RISK 4.4 - 7.1 AVERAGE RISK 7.1 - 11.0 MODERATE RISK >11.0 HIGH RISK Performed By: #### U ALLEN, TSH, T7, LIPID, CMP #### [facility] [address] [place] [address] Dr. Carolyn King Cholesterol [Mass/Vol] 157 mg/dL Normal <=200 [facility] Comment on above: Performed By: #### U ALLEN, TSH, T7, LIPID, CMP #### [facility] [address] [place] [address] Dr. Carolyn King Cholesterol in HDL [Mass/Vol] 49 mg/dL Normal 40-[address] [facility] Comment on above: Performed By: #### U ALLEN, TSH, T7, LIPID, CMP #### [facility] [address] [address] [address] Carolyn King Cholesterol in LDL [Mass/Vol] 85.6 mg/dL Normal [facility] Comment on above: Performed By: #### U ALLEN, TSH, T7, LIPID, CMP #### [facility] [address] [address] [address] Carolyn King Cholesterol.total/Chol esterol in HDL [Mass ratio] 3.2 {ratio} Normal [facility] Comment on above: Performed By: #### U ALLEN, TSH, T7, LIPID, CMP #### [facility] [address] [address] [address] Carolyn King HDL NORMAL > or = 60 mg/dl - LO W CARDIOVASCULAR RISK <40 mg/dl - HIGH CARDIOVASCULAR RISK Normal [facility] Comment on above: Performed By: #### U ALLEN, TSH, T7, LIPID, CMP #### [facility] [address] [address] [address] Carolyn King LDL CALC NORMAL SEE BELOW Normal [facility] Comment on above: Result Comment: <100 mg/dl OPTIMAL 100 - 129 mg/dl NEAR OR ABOVE OPTIMAL 130 - 159 mg/dl BORDERLINE HIGH 160 - 189 mg/dl HIGH >190 mg/dl VERY HIGH Performed By: #### U ALLEN, TSH, T7, LIPID, CMP #### [facility] [address] [address] [address] Carolyn King Triglyceride [Mass/Vol] 112 mg/dL Normal <=[address] [facility] Comment on above: Performed By: #### U ALLEN, TSH, T7, LIPID, CMP #### [facility] [address] [address] [address] Carolyn King VLDL CALC 22.4 mg/dL Normal [facility] Comment on above: Performed By: #### U ALLEN, TSH, T7, LIPID, CMP #### [facility] [address] [address] [address] Carolyn King PROF 14(COMP METB)on 022 Albumin [Mass/Vol] 3.9 g/dL Normal 3.4-5.0 [facility] Comment on above: Performed By: #### U ALLEN, TSH, T7, LIPID, CMP #### [facility] [address] [address] [address] Carolyn King Albumin/Globulin [Mass ratio] 1.1 {ratio} Normal [facility] Comment on above: Performed By: #### U ALLEN, TSH, T7, LIPID, CMP #### [facility] [address] [address] [address] Carolyn King ALP [Catalytic activity/Vol] 108 U/L Normal 46-[address] [facility] Comment on above: Performed By: #### U ALLEN, TSH, T7, LIPID, CMP #### [facility] [address] [place] [address] Dr. Carolyn King ALT [Catalytic activity/Vol] 28 U/L Normal 16-[address] [facility] Comment on above: Performed By: #### U ALLEN, TSH, T7, LIPID, CMP #### [facility] [address] [place] [address] Dr. Carolyn King Anion gap [Moles/Vol] 6.6 mmol/L Normal [facility] Comment on above: Performed By: #### U ALLEN, TSH, T7, LIPID, CMP #### [facility] [address] [place] [address] Dr. Carolyn King AST [Catalytic activity/Vol] 22 U/L Normal 15-[address] [facility] Comment on above: Performed By: #### U ALLEN, TSH, T7, LIPID, CMP #### [facility] [address] [place] [address] Dr. Carolyn King Bilirubin [Mass/Vol] 0.6 mg/dL Normal 0.2-1.[address] [facility] Comment on above: Performed By: #### U ALLEN, TSH, T7, LIPID, CMP #### [facility] [address] [place] [address] Dr. Carolyn King Calcium [Mass/Vol] 8.7 mg/dL Normal 8.5-10.1 [facility] Comment on above: Performed By: #### U ALLEN, TSH, T7, LIPID, CMP #### [facility] [address] [address] [address] Carolyn King Chloride [Moles/Vol] 105 mmol/L Normal 98-107 [facility] Comment on above: Performed By: #### U ALLEN, TSH, T7, LIPID, CMP #### [facility] [address] [address] [address] Carolyn King CO2 [Moles/Vol] 30.6 mmol/L Normal 21.0-32.0 [facility] Comment on above: Performed By: #### U ALLEN, TSH, T7, LIPID, CMP #### [facility] [address] [address] [address] Carolyn King Creatinine [Mass/Vol] 0.96 mg/dL Normal 0.70-1.30 [facility] Comment on above: Performed By: #### U ALLEN, TSH, T7, LIPID, CMP #### [facility] [address] [address] [address] Carolyn King EGFR-AF [place] >60 Normal >=60 [facility] Comment on above: Performed By: #### U ALLEN, TSH, T7, LIPID, CMP #### [facility] [address] [address] [address] Carolyn King EGFR-NON AF [place] >60 Normal >=60 [facility] Comment on above: Performed By: #### U ALLEN, TSH, T7, LIPID, CMP #### [facility] [address] [address] [address] Carolyn King Globulin (S) [Mass/Vol] 3.5 g/dL Normal [facility] Comment on above: Performed By: #### U ALLEN, TSH, T7, LIPID, CMP #### [facility] [address] [address] [address] Carolyn King Potassium [Moles/Vol] 4.2 mmol/L Normal 3.5-5.1 [facility] Comment on above: Performed By: #### U ALLEN, TSH, T7, LIPID, CMP #### [facility] [address] [address] [address] Carolyn King Protein [Mass/Vol] 7.4 g/dL Normal 6.4-8.2 [facility] Comment on above: Performed By: #### U ALLEN, TSH, T7, LIPID, CMP #### [facility] [address] [address] [address] Carolyn King Sodium [Moles/Vol] 138 mmol/L Normal 136-145 [facility] Comment on above: Performed By: #### U ALLEN, TSH, T7, LIPID, CMP #### [facility] [address] [address] [address] Carolyn King Urea nitrogen [Mass/Vol] 16.0 mg/dL Normal 7.0-18.[address] [facility] Comment on above: Performed By: #### U ALLEN, TSH, T7, LIPID, CMP #### [facility] [address] [place] [address] Dr. Carolyn King Urea nitrogen/Creatinine [Mass ratio] 16.7 mg/mg Normal [facility] Comment on above: Performed By: #### U ALLEN, TSH, T7, LIPID, CMP #### [facility] [address] [address] [address] Carolyn King TSHon 03-28-2022 TSH 1.986 uIU/mL Normal 0.358-3.[address] [facility] Comment on above: Performed By: #### U ALLEN, TSH, T7, LIPID, CMP #### [facility] [address] [address] [address] Carolyn King URIC ACID SERUMon 03-28-2022 Urate [Mass/Vol] 5.5 mg/dL Normal 3.5-7.2 [facility] Comment on above: Performed By: #### U ALLEN, TSH, T7, LIPID, CMP #### [facility] [address] [address] [address] Carolyn King Ammonium urate crystals dete ction in stone by infrared spectroscopyOrdered By: Shun Machado on 02-15-2022 Ammonium urate crystals Infrared spectroscopy Ql (Stone) N/A [facility] Basophils Auto (Bld) [#/Vol] Ordered By: Steve Pina on 02-15-2022 Basophils (Bld) [#/Vol] 0.0 10*3/uL 0.0-0.2 [facility] Basophils/100 WBC Auto (Bld) Ordered By: Steve Pina on 02-15-2022 Basophils/100 WBC (Bld) 0.9 % . [facility] Blood hemoglobin measurement (mass/volume)Ordered By: Steve Pina on 02-15-2022 Hemoglobin (Bld) [Mass/Vol] 14.2 g/dL 13.0-17.0 [facility] Blood leukocytes automated c ount (number/volume)Ordered By: Steve Pina on 02-15-2022 WBC (Bld) [#/Vol] 4.5 10*3/uL 4.5-11.0 [facility] Calcium bilirubinate measure mentOrdered By: Shun Machado on 02-15-2022 Calcium bilirubinate (Stone) [Mass fraction] N/A [facility] Calcium carbonate measuremen tOrdered By: Shun Machado on 02-15-2022 Calcium carbonate (Stone) [Mass fraction] N/A [facility] Calcium hydrogen phosphate d ihydrate/Total in StoneOrdered By: Shun Machado on 02-15-2022 Calcium hydrogen phosphate dihydrate (Stone) [Mass fraction] N/A [facility] Calcium oxalate dihydrate cr ystals detection in stone by infrared spectroscopyOrdered By: Shun Machado on 02-15-2022 Calcium oxalate dihydrate crystals Infrared spectroscopy Ql (Stone) 10 % . [facility] Calcium oxalate monohydrate/ Total in StoneOrdered By: Shun Machado on 02-15-2022 Calcium oxalate monohydrate (Stone) [Mass fraction] 90 % . [facility] Calcium phosphate measuremen tOrdered By: Shun Machado on 02-15-2022 Calcium phosphate (Stone) [Mass fraction] N/A [facility] Calculus analysis interpreta tion in stoneOrdered By: Shun Machado on 02-15-2022 Calculus analysis [Interp] N/A [facility] Calculus analysis [Interp] See comment . [facility] Comment on above: Physician questions regarding Calculi Analysis contact Vessel at: [phone]. Calculi report will follow via computer, mail or vacuum evaporation operator delivery. Calculus analysis with calcu iggy photography interpretation in stoneOrdered By: Shun Machado on 02-15-2022 Calculus analysis with calculus photography [Interp] See comment . [facility] Comment on above: Photograph will foll ow under a separate cover Cellular material measuremen t in stone by estimated (mass/mass)Ordered By: Shun Machado on 02-15-2022 Cellular material Est (Stone) [Mass/Mass] N/A [facility] Cholesterol/Total in StoneOr dered By: Shun Machado on 02-15-2022 Cholesterol (Stone) [Mass fraction] N/A [facility] Composition of stoneOrdered By: Shun Machado on 02-15-2022 Composition Nom (Stone) See comment . [facility] Comment on above: Percentage (Represen ts the % composition) Creatinine and Glomerular fi ltration rate.predicted panel (S/P/Bld)Ordered By: Steve Pina on 02-15-2022 Creatinine [Mass/Vol] 0.96 mg/dL 0.64-1.27 [facility] Cystine measurementOrdered B y: Shun Machado on 02-15-2022 Cystine (Unsp spec) [Moles/Vol] N/A [facility] Determination of color of ca lculusOrdered By: Shun Machado on 02-15-2022 Color (Stone) Brown . [facility] Eosinophils Auto (Bld) [#/Vo l]Ordered By: Steve Pina on 02-15-2022 Eosinophils (Bld) [#/Vol] 0.1 10*3/uL 0.0-0.45 [facility] Eosinophils/100 WBC Auto (Bl d)Ordered By: Steve Pina on 02-15-2022 Eosinophils/100 WBC (Bld) 2.7 % . [facility] Erythrocyte distribution wid th Auto (RBC) [Ratio]Ordered By: Steve Pina on 02-15-2022 Erythrocyte distribution width (RBC) [Ratio] 14.0 % 12.0-14.8 [facility] Estimated glomerular filtrat ion rate (GFR) non- AmericanOrdered By: Steve Pina on 02-15-2022 GFR/1.73 sq M.predicted among non-blacks MDRD (S/P/Bld) [Vol rate/Area] > 60 mL/Min [facility] Hematocrit Auto (Bld) [Volum e fraction]Ordered By: Steve Pina on 02-15-2022 Hematocrit (Bld) [Volume fraction] 42.2 % 38.8-50.0 [facility] Hydroxyapatite [Energy Diffe rence] in 24 hour UrineOrdered By: Shun Machado on 02-15-2022 Hydroxyapatite (24H U) [Energy diff] N/A [facility] Laboratory - Hematology and Cell countsOrdered By: Steve Pina on 02-15-2022 Nucleated RBC/100 WBC (Bld) [Ratio] 0.0 % 0-0.5 [facility] Lymphocytes Auto (Bld) [#/Vo l]Ordered By: Steve Pina on 02-15-2022 Lymphocytes (Bld) [#/Vol] 1.0 10*3/uL 1.00-4.8 [facility] Lymphocytes/100 WBC Auto (Bl d)Ordered By: Steve Pina on 02-15-2022 Lymphocytes/100 WBC (Bld) 21.3 % . [facility] MCH Auto (RBC) [Entitic mass ]Ordered By: Steve Pina on 02-15-2022 MCH (RBC) [Entitic mass] 31.0 pg 27.5-35.2 [facility] MCHC Auto (RBC) [Mass/Vol]Or dered By: Steve Pina on 02-15-2022 MCHC (RBC) [Mass/Vol] 33.7 g/dL 32.5-35.6 [facility] MCV Auto (RBC) [Entitic vol] Ordered By: Steve Pina on 02-15-2022 MCV (RBC) [Entitic vol] 92.1 fL 83.5-101 [facility] Measurement of proportion of calculus composed of dried blood (mass/mass)Ordered By: Shun Machado on 02-15-2022 Blood.dried (Stone) [Mass fraction] N/A [facility] Monocytes Auto (Bld) [#/Vol] Ordered By: Steve Pina on 02-15-2022 Monocytes (Bld) [#/Vol] 0.5 10*3/uL 0.0-0.8 [facility] Monocytes/100 WBC Auto (Bld) Ordered By: Steve Pina on 02-15-2022 Monocytes/100 WBC (Bld) 10.1 % . [facility] Neutrophils Auto (Bld) [#/Vo l]Ordered By: Steve Pina on 02-15-2022 Neutrophils (Bld) [#/Vol] 3.0 10*3/uL 1.8-7.7 [facility] Neutrophils/100 WBC Auto (Bl d)Ordered By: Steve Pina on 02-15-2022 Neutrophils/100 WBC (Bld) 65.0 % . [facility] Newberyite/Total in StoneOrd ered By: Shun Machado on 02-15-2022 Newberyite (Stone) [Mass fraction] N/A [facility] No Panel InformationOrdered By: Shun Machado on 02-15-2022 Stone 2,8 Dihydroxyadenine N/A [facility] Stone Analysis Disclaimer See comment . [facility] Comment on above: This test was develo ped and its performance characteristics determined by [employer]. It has not been cleared or approved by the Food and Drug Administration. Performed at: [facility] Stone Analysis [address] [place] [address] [place], [place] [id number] Hand Bender: Riley Parikh PhD, Phone: [phone] Stone Bilirubinate N/A [facility] Stone Calcium Palmitate N/A [facility] Stone Calcium Stearate N/A [facility] Stone Carbonate Apatite N/A [facility] Stone Drug or Metabolite N/A [facility] Stone Other Constituent N/A [facility] Stone Xanthine N/A [facility] No Panel InformationOrdered By: Steve Pina on 02-15-2022 Estimated GFR () > 60 mL/Min [facility] Comment on above: GFR estimated refere nce range: According to KDOQI guidelines, <60 ml/min/1.73m2 is sufficient to diagnose a patient with chronic kidney disease. Pharmacy Creatinine Clearance (Chem 93.62 [facility] Platelet mean volume Auto (B ld) [Entitic vol]Ordered By: Steve Pina on 02-15-2022 Platelet mean volume (Bld) [Entitic vol] 7.9 fL 6.6-10.1 [facility] Platelets Auto (Bld) [#/Vol] Ordered By: Steve Pina on 02-15-2022 Platelets (Bld) [#/Vol] 202 10*3/uL 150-450 [facility] RBC Auto (Bld) [#/Vol]Ordere d By: Steve Pina on 02-15-2022 RBC (Bld) [#/Vol] 4.58 10*6/uL 3.90-5.60 [facility] Serum or plasma calcium karl urement (mass/volume)Ordered By: Steve Pina on 02-15-2022 Calcium [Mass/Vol] 9.0 mg/dL 8.2-10.2 [facility] Serum or plasma chloride reba surement (moles/volume)Ordered By: Steve Pina on 02-15-2022 Chloride [Moles/Vol] 102 mmol/L 95-114 [facility] Serum or plasma glucose karl urement (mass/volume)Ordered By: Steve Pina on 02-15-2022 Glucose [Mass/Vol] 108 mg/dL 70-100 [facility] Comment on above: ADA recommended refe rence range Random Glucose Reference Range is dependent on time and content of last meal. Glucose of more than 200 mg/dL in a nonstressed, ambulatory subject supports the diagnosis of Diabetes Mellitus. Serum or plasma potassium me asurement (moles/volume)Ordered By: Steve Pina on 02-15-2022 Potassium [Moles/Vol] 3.9 mmol/L 3.5-5.1 [facility] Serum or plasma sodium measu rement (moles/volume)Ordered By: Steve Pina on 02-15-2022 Sodium [Moles/Vol] 137 mmol/L 136-146 [facility] Serum or plasma total carbon dioxide measurement (moles/volume)Ordered By: Steve Pina on 02-15-2022 CO2 [Moles/Vol] 28.0 mmol/L 22.0-30.0 [facility] Serum or plasma urea nitroge n measurement (mass/volume)Ordered By: Steve Pina on 02-15-2022 Urea nitrogen [Mass/Vol] 11 mg/dL 03-16 [facility] Size [Entitic volume] of Sto neOrdered By: Shun Machado on 02-15-2022 Size (Stone) [Entitic vol] 5x3 mm . [facility] Comment on above: Multiple pieces rece ived. Dimensions of the largest piece reported. Sodium urate crystals detect ion in stone by infrared spectroscopyOrdered By: Shun Machado on 02-15-2022 Sodium urate crystals Infrared spectroscopy Ql (Stone) N/A [facility] Specimen source subject [Typ e]Ordered By: Shun Machado on 02-15-2022 Specimen source subject Nom See comment . [facility] Comment on above: Right Ureter Triamterene measurement in c alculusOrdered By: Shun Machado on 02-15-2022 Triamterene (Stone) [Mass fraction] N/A [facility] Triple phosphate/Total in St oneOrdered By: Shun Machado on 02-15-2022 Triple phosphate (Stone) [Mass fraction] N/A [facility] Uric acid dihydrate crystals detection in stone by infrared spectroscopyOrdered By: Shun Machado on 02-15-2022 Urate dihydrate crystals Infrared spectroscopy Ql (Stone) N/A [facility] XR ANKLE RT MIN 3 VIEWSon XR [...] change in alignment. Electronically authenticated by: LAURY Mares: 2022-02-15 06:59 Normal [facility] COVID-19 Positive/NegativeOr dered By: Shun Machado on 02-13-2022 SARS-CoV-2 (COVID-19) N gene LU+probe Ql (Resp) Negative Negative [facility] Comment on above: Testing for SARS-CoV -2 by RT-PCR This test was developed and its performance characteristics determined by [employer] ([employer]) and validated at the [facility]. This test has not been FDA cleared [...] claudication. COMPARISON: November 08, 2021 ACCESSION NUMBER(S): [id number] ORDERING CLINICIAN: KENTON LAWSON FINDINGS: Status post anterior and posterior fusion L3-L5 unchanged prior examination with disc space replacement and posterior pedicle screws. Alignment normal. Upper lumbar degenerative changes greatest at L2-3 again noted. IMPRESSION: Satisfactory and unchanged appearance status post L3-L5 fusion. Electronically signed by: JENI SNYDER MD Normal [facility] Established Visit (Orthopaed ic Surgery)on 01-29-2022 Established Visit (Orthopaedic Surgery) Diagnoses/Problems Assessed Lumbar stenosis with neurogenic claudication (724.03) (M48.062) Orders Lumbar stenosis with neurogenic claudication Xray BN Spine, Lumbosacral; 2 or 3 Views; Status:Resulted - Preliminary; Done: [id number] 10:34AM Radiologist to Determine Optimal Study : [...] Xray BN Spine, Lumbosacral; 2 or 3 [id number] 10:34AMSKenton fernández Test NameResultFlagReference Xray Lumbar Spine [...] by: BANDAR SAENZ Date: 2022-01-29 21:[address] [facility] Activated partial thrombopla stin time (aPTT) in platelet poor plasma by coagulation aOrdered By: Shun Machado on 01-17-2022 aPTT Coag (PPP) [Time] 36.3 s 25.1-36.5 [facility] COVID-19 Positive/NegativeOr dered By: Shun Machado on 01-17-2022 SARS-CoV-2 (COVID-19) N gene LU+probe Ql (Resp) Negative Negative [facility] Comment on above: Testing for SARS-CoV -2 by RT-PCR This test was developed and its performance characteristics determined by [employer] ([employer]) and validated at the [facility]. This test has not been FDA cleared [...] (PPP) [Time] 11.9 s 9.0-12.9 [facility] Platelet poor plasma interna tional normalized ratio (INR) by coagulation assay (relatOrdered By: Shun Machado on 01-17-2022 INR Coag (PPP) [Relative time] 1.1 {INR} [facility] Comment on above: INR Therapeutic Rang e [...] BANDAR SAENZ Date: 2022-01-11 16:29 Normal [facility] CBC AUTO DIFFon 01-09-2022 BASO # 0.0 103/ul Normal 0.0-0.[address] [facility] Comment on above: Performed By: #### C BC #### [facility] [address] [address] [address] Carolyn King Basophils/100 WBC (Bld) 0.4 % Normal 0.2-2.[address] [facility] Comment on above: Performed By: #### C BC #### [facility] [address] [address] [address] Carolyn King EO # 0.0 103/ul Normal 0.0-0.[address] [facility] Comment on above: Performed By: #### C BC #### [facility] [address] [place] [address] Dr. Carolyn King Eosinophils/100 WBC (Bld) 0.3 % Critically low 0.9-7.[address] [facility] Comment on above: Performed By: #### C BC #### [facility] [address] [place] [address] Dr. Carolyn King Erythrocyte distribution width (RBC) [Ratio] 12.6 % Normal 11.0-15.[address] [facility] Comment on above: Performed By: #### C BC #### [facility] [address] [place] [address] Dr. Carolyn King Hematocrit (Bld) [Volume fraction] 45.6 % Normal 42.0-54.[address] [facility] Comment on above: Performed By: #### C BC #### [facility] [address] [place] [address] Dr. Carolyn King Hemoglobin (Bld) [Mass/Vol] 15.6 g/dL Normal 14.0-18.[address] [facility] Comment on above: Performed By: #### C BC #### [facility] [address] [place] [address] Dr. Carolyn King IG # 0.02 10e3/ul Normal 0.00-0.[address] [facility] Comment on above: Performed By: #### C BC #### [facility] [address] [place] [address] Dr. Carolyn King IG % 0.3 % Normal 0.0-0.5 [facility] Comment on above: Performed By: #### C BC #### [facility] [address] [place] [address] Dr. Carolyn King LYMPH # 0.8 103/ul Critically low 1.2-3.8 [facility] Comment on above: Performed By: #### C BC #### [facility] [address] [place] [address] Dr. Carolyn King Lymphocytes/100 WBC (Bld) 11.4 % Critically low 20.5-60.[address] [facility] Comment on above: Performed By: #### C BC #### [facility] [address] [place] [address] Dr. Carolyn King MANUAL DIFF REQ NO Normal [facility] Comment on above: Performed By: #### C BC #### [facility] [address] [place] [address] Dr. Carolyn King MCH (RBC) [Entitic mass] 30.8 pg Normal 25.9-34.[address] [facility] Comment on above: Performed By: #### C BC #### [facility] [address] [place] [address] Dr. Carolyn King MCHC (RBC) [Mass/Vol] 34.2 g/dL Normal 29.9-35.[address] [facility] Comment on above: Performed By: #### C BC #### [facility] [address] [place] [address] Dr. Carolyn King MCV (RBC) [Entitic vol] 89.9 fL Normal 80.0-94.[address] [facility] Comment on above: Performed By: #### C BC #### [facility] [address] [place] [address] Dr. Carolyn King MONO # 0.6 103/ul Normal 0.3-0.8 [facility] Comment on above: Performed By: #### C BC #### [facility] [address] [place] [address] Dr. Carolyn King Monocytes/100 WBC (Bld) 8.5 % Normal 1.7-12.0 [facility] Comment on above: Performed By: #### C BC #### [facility] [address] [place] [address] Dr. Carolyn King NEUT # 5.8 103/ul Normal 1.4-6.5 [facility] Comment on above: Performed By: #### C BC #### [facility] [address] [address] [address] Carolyn King Neutrophils/100 WBC (Bld) 79.1 % Critically high 43.0-75.[address] [facility] Comment on above: Performed By: #### C BC #### [facility] [address] [address] [address] Carolyn King Platelet mean volume (Bld) [Entitic vol] 10.7 fL Normal 9.5-13.5 [facility] Comment on above: Performed By: #### C BC #### [facility] [address] [address] [address] Carolyn King PLT 235 103/ul Normal 150-450 [facility] Comment on above: Performed By: #### C BC #### [facility] [address] [place] [address] Dr. Carolyn King RBC 5.07 106/ul Normal 4.70-6.10 [facility] Comment on above: Performed By: #### C BC #### [facility] [address] [place] [address] Dr. Carolyn King WBC 7.4 103/ul Normal 4.0-11.0 [facility] Comment on above: Performed By: #### C BC #### [facility] [address] [place] [address] ABD/PELVIS WO CONon [...] LAURY ZEPEDA Date: 2022-01-09 13:38 Normal [facility] ER URINE PROFILEon 2 Bilirubin Ql (U) Negative Normal NEGATIVE [facility] Comment on above: Performed By: #### I NSULIN #### [facility] [address] [place] [address] Dr. Carolyn King Clarity (U) CLEAR Normal CLEAR [facility] Comment on above: Performed By: #### I NSULIN #### [facility] [address] [place] [address] Dr. Carolyn King Color (U) LT. YELLOW Normal YELLOW [facility] Comment on above: Performed By: #### I NSULIN #### [facility] [address] [place] [address] Dr. Carolyn King ERUAHD A micrscopic examina tion will be performed if indicated. Normal [facility] Comment on above: Performed By: #### I NSULIN #### [facility] [address] [place] [address] Dr. Carolyn King Glucose Ql (U) Negative Normal NEGATIVE [facility] Comment on above: Performed By: #### I NSULIN #### [facility] [address] [address] [address] Carolyn King Hemoglobin Ql (U) MODERATE Abnormal NEGATIVE [facility] Comment on above: Performed By: #### I NSULIN #### [facility] [address] [place] [address] Dr. Carolyn King Ketones Ql (U) Negative Normal NEGATIVE [facility] Comment on above: Performed By: #### I NSULIN #### [facility] [address] [address] [address] Carolyn King LEUKOCYTES Negative Normal NEGATIVE [facility] Comment on above: Performed By: #### I NSULIN #### [facility] [address] [place] [address] Dr. Carolyn King Nitrite Ql (U) Negative Normal NEGATIVE [facility] Comment on above: Performed By: #### I NSULIN #### [facility] [address] [place] [address] Dr. Carolyn King pH (U) 6.0 [pH] Normal 5-[address] [facility] Comment on above: Performed By: #### I NSULIN #### [facility] [address] [place] [address] Dr. Carolyn iKng SPEC GRAVITY 1.010 Normal 1.005-<=1. [address] [facility] Comment on above: Performed By: #### I NSULIN #### [facility] [address] [place] [address] Dr. Carolyn King UA PROTEIN Negative Normal NEGATIVE/ TRACE [facility] Comment on above: Performed By: #### I NSULIN #### [facility] [address] [place] [address] Dr. Carolyn King UR MICRO IND INDICATED Normal [facility] Comment on above: Performed By: #### I NSULIN #### [facility] [address] [place] [address] Dr. Carolyn King Urobilinogen Qn (U) 0.2 {Keren'U}/dL Normal 0.2 - 1. [address] [facility] Comment on above: Performed By: #### I NSULIN #### [facility] [address] [place] [address] Dr. Carolyn King LIPASEon 01-09-2022 Lipase [Catalytic activity/Vol] 98.0 U/L Normal 73.0-393.[address] [facility] Comment on above: Performed By: #### I NSULIN #### [facility] [address] [place] [address] Dr. Carolyn King PROF 14(COMP METB)on 022 Albumin [Mass/Vol] 4.0 g/dL Normal 3.4-5.0 [facility] Comment on above: Performed By: #### I NSULIN #### [facility] [address] [place] [address] Dr. Carolyn King Albumin/Globulin [Mass ratio] 1.1 {ratio} Normal [facility] Comment on above: Performed By: #### I NSULIN #### [facility] [address] [place] [address] Dr. Carolyn King ALP [Catalytic activity/Vol] 112 U/L Normal 46-[address] [facility] Comment on above: Performed By: #### I NSULIN #### [facility] [address] [place] [address] Dr. Carolyn King ALT [Catalytic activity/Vol] 27 U/L Normal 16-[address] [facility] Comment on above: Performed By: #### I NSULIN #### [facility] [address] [place] [address] Dr. Carolyn King Anion gap [Moles/Vol] 14.9 mmol/L Normal [facility] Comment on above: Performed By: #### I NSULIN #### [facility] [address] [place] [address] Dr. Carolyn King AST [Catalytic activity/Vol] 22 U/L Normal 15-[address] [facility] Comment on above: Performed By: #### I NSULIN #### [facility] [address] [place] [address] Dr. Carolyn King Bilirubin [Mass/Vol] 0.5 mg/dL Normal 0.2-1.[address] [facility] Comment on above: Performed By: #### I NSULIN #### [facility] [address] [address] [address] Carolyn King Calcium [Mass/Vol] 9.1 mg/dL Normal 8.5-10.1 [facility] Comment on above: Performed By: #### I NSULIN #### [facility] [address] [address] [address] Carolyn King Chloride [Moles/Vol] 103 mmol/L Normal 98-107 [facility] Comment on above: Performed By: #### I NSULIN #### [facility] [address] [address] [address] Carolyn King CO2 [Moles/Vol] 26.0 mmol/L Normal 21.0-32.0 [facility] Comment on above: Performed By: #### I NSULIN #### [facility] [address] [place] [address] Dr. Carolyn King Creatinine [Mass/Vol] 1.09 mg/dL Normal 0.70-1.[address] [facility] Comment on above: Performed By: #### I NSULIN #### [facility] [address] [address] [address] Carolyn King EGFR-AF [place] >60 Normal >=60 [facility] Comment on above: Performed By: #### I NSULIN #### [facility] [address] [place] [address] Dr. Carolyn King EGFR-NON AF [place] >60 Normal >=60 [facility] Comment on above: Performed By: #### I NSULIN #### [facility] [address] [address] [address] Carolyn King Globulin (S) [Mass/Vol] 3.8 g/dL Normal [facility] Comment on above: Performed By: #### I NSULIN #### [facility] [address] [place] [address] Dr. Carolyn King Glucose [Mass/Vol] 97 mg/dL Normal 74-106 [facility] Comment on above: Performed By: #### I NSULIN #### [facility] [address] [address] [address] Carolyn King Potassium [Moles/Vol] 3.9 mmol/L Normal 3.5-5.[address] [facility] Comment on above: Performed By: #### I NSULIN #### [facility] [address] [place] [address] Dr. Carolyn King Protein [Mass/Vol] 7.8 g/dL Normal 6.4-8.2 [facility] Comment on above: Performed By: #### I NSULIN #### [facility] [address] [address] [address] Carolyn King Sodium [Moles/Vol] 140 mmol/L Normal 136-145 [facility] Comment on above: Performed By: #### I NSULIN #### [facility] [address] [place] [address] Dr. Carolyn King Urea nitrogen [Mass/Vol] 16.0 mg/dL Normal 7.0-18.[address] [facility] Comment on above: Performed By: #### I NSULIN #### [facility] [address] [place] [address] Dr. Carolyn King Urea nitrogen/Creatinine [Mass ratio] 14.7 mg/mg Normal [facility] Comment on above: Performed By: #### I NSULIN #### [facility] [address] [place] [address] Dr. Carolyn King URINE MICROSCOPIC ONLYon BACTERIA NONE SEEN Normal NONE SEEN [facility] Comment on above: Performed By: #### I NSULIN #### [facility] [address] [place] [address] Dr. Carolyn King Bacteria identified Cx Nom (U) NOT INDICATED Normal [facility] Comment on above: Performed By: #### I NSULIN #### [facility] [address] [place] [address] Dr. Carolyn King CAST NONE SEEN Normal NONE SEEN [facility] Comment on above: Performed By: #### I NSULIN #### [facility] [address] [place], [place] [id number] Dr. Carolyn King Crystals LM Nom (Urine sed) NONE SEEN Normal NONE SEEN [facility] Comment on above: Performed By: #### I NSULIN #### [facility] [address] [place] [address] Dr. Carolyn King Epithelial cells LM Ql (Urine sed) NONE SEEN Normal NONE SEEN /RARE [facility] Comment on above: Performed By: #### I NSULIN #### [facility] [address] [place] [address] Dr. Carolyn King MUCOUS NONE SEEN Normal NONE SEEN [facility] Comment on above: Performed By: #### I NSULIN #### [facility] [address] [place] [address] Dr. Carolyn King RBC 2-5 Abnormal 0-2 [facility] Comment on above: Performed By: #### I NSULIN #### [facility] [address] [place] [address] Dr. Carolyn King WBC 0-2 Abnormal NONE SEEN [facility] Comment on above: Performed By: #### I NSULIN #### [facility] [address] [place] [address] Dr. Carolyn King US SINGLE QUAD RT [...] by: BANDAR QUEZADA Date: 2022-01-05 10:[address] [facility] NM HEPATOBILIARY SCAN W EFon 12-27-2021 [place] HEPATOBILIARY SCAN W EF HISTORY: Right upper [...] LAURY SNYDER Date: 2021-12-27 12:[address] [facility] [address] ABD/PELV W CONon 12-12-19 [...] by: LAURY ZEPEDA Date: 2021-12-11 07:[address] [facility] CREATININEon 12-09-2021 Creatinine [Mass/Vol] 0.98 mg/dL Normal 0.70-1.30 [facility] Comment on above: Performed By: #### I NSULIN #### [facility] [address] [address] [address] Carolyn King EGFR-AF [place]ONG [place]ER >60 Normal >=60 [facility] Comment on above: Performed By: #### I NSULIN #### [facility] [address] [address] [address] Carolyn King EGFR-NON AF [place]ER >60 Normal >=[address] [facility] Comment on above: Performed By: #### I NSULIN #### [facility] [address] [address] [address] Carolyn King BN SPINE, LUMBOSACRAL; 2 OR 3 VIEWSon 11-08-2021 BN SPINE, LUMBOSACRAL; 2 OR 3 VIEWS Patient Name: JAY CARR STUDY: Lumbar spine dated 11/08/2021. INDICATION: AP/LAT M54.50: Lumbar back pain M48.062: Lumbar stenosis with neurogenic claudication COMPARISON: None. ACCESSION NUMBER(S): [id number] ORDERING CLINICIAN: KENTON LAWSON TECHNIQUE: AP and [...] above. Electronically signed by: BATSHEVA VIDAL MD [facility] Post Op (Orthopaedic Surgery )on 11-08-2021 [...] Work Phone: CBCon 09-29-2021 HCT Canceled Normal [facility] Comment on above: Order Comment: TEST CBC WAS CANCELLED, 09/29/2021 08:10 NO SPECIMEN RECEIVED IN LAB. Performed By: #### C BC ####[id number] [place] [address] HGB Canceled Normal [facility] Comment on above: Order Comment: TEST CBC WAS CANCELLED, 09/29/2021 08:10 NO SPECIMEN RECEIVED IN LAB. Performed By: #### C BC ####[id number] [place] [address] MCHC Canceled Normal [facility] Comment on above: Order Comment: TEST CBC WAS CANCELLED, 09/29/2021 08:10 NO SPECIMEN RECEIVED IN LAB. Performed By: #### C BC ####[id number] [place] [address] MCV Canceled Normal [facility] Comment on above: Order Comment: TEST CBC WAS CANCELLED, 09/29/2021 08:10 NO SPECIMEN RECEIVED IN LAB. Performed By: #### C BC ####[id number] [place] [address] NUCLEATED RBC Canceled Normal [facility] Comment on above: Order Comment: TEST CBC WAS CANCELLED, 09/29/2021 08:10 NO SPECIMEN RECEIVED IN LAB. Performed By: #### C BC ####[id number] [place] [address] PLT Canceled Normal [facility] Comment on above: Order Comment: TEST CBC WAS CANCELLED, 09/29/2021 08:10 NO SPECIMEN RECEIVED IN LAB. Performed By: #### C BC ####[id number] [place] [address] RBC Canceled Normal [facility] Comment on above: Order Comment: TEST CBC WAS CANCELLED, 09/29/2021 08:10 NO SPECIMEN RECEIVED IN LAB. Performed By: #### C BC ####[id number] [place] [address] RDW-CV Canceled Normal [facility] Comment on above: Order Comment: TEST CBC WAS CANCELLED, 09/29/2021 08:10 NO SPECIMEN RECEIVED IN LAB. Performed By: #### C BC ####[id number] [place] [address] WBC Canceled Normal [facility] Comment on above: Order Comment: TEST CBC WAS CANCELLED, 09/29/2021 08:10 NO SPECIMEN RECEIVED IN LAB. Performed By: #### C BC ####[id number] [place] [address] BASIC METABOLIC PANELon 04-0 ANION GAP Canceled Normal [facility] Comment on above: Order Comment: TEST BASIC METABOLIC PANEL WAS CANCELLED, 09/28/2021 04:56 Performed By: #### B MP ####[id number] [place] [address] BICARBONATE Canceled Normal [facility] Comment on above: Order Comment: TEST BASIC METABOLIC PANEL WAS CANCELLED, 09/28/2021 04:56 Performed By: #### B MP ####[id number] [place] [address] CALCIUM Canceled Normal [facility] Comment on above: Order Comment: TEST BASIC METABOLIC PANEL WAS CANCELLED, 09/28/2021 04:56 Performed By: #### B MP ####[id number] [place] [address] CHLORIDE Canceled Normal [facility] Comment on above: Order Comment: TEST BASIC METABOLIC PANEL WAS CANCELLED, 09/28/2021 04:56 Performed By: #### B MP ####[id number] [place] [address] CREATININE Canceled Normal [facility] Comment on above: Order Comment: TEST BASIC METABOLIC PANEL WAS CANCELLED, 09/28/2021 04:56 Performed By: #### B MP ####[id number] [place] [address] eGFR FEMALE Canceled Normal [facility] Comment on above: Order Comment: TEST BASIC METABOLIC PANEL WAS CANCELLED, 09/28/2021 04:56 Result Comment: CALC ULATIONS OF ESTIMATED GFR ARE PERFORMED USING THE 2020 CKD-EPI STUDY REFIT EQUATION WITHOUT THE RACE VARIABLE FOR THE IDMS-TRACEABLE CREATININE METHODS. https://jasn.asnjournals.org/content/early/ASN.46613 16126 Performed By: #### B MP ####[id number] [place] [address] eGFR MALE Canceled Normal [facility] Comment on above: Order Comment: TEST BASIC METABOLIC PANEL WAS CANCELLED, 09/28/2021 04:56 Result Comment: CALC ULATIONS OF ESTIMATED GFR ARE PERFORMED USING THE 2020 CKD-EPI STUDY REFIT EQUATION WITHOUT THE RACE VARIABLE FOR THE IDMS-TRACEABLE CREATININE METHODS. https://jasn.asnjournals.org/content/early//ASN.10994 30232 Performed By: #### B MP ####[id number] [place] [address] GLUCOSE Canceled Normal [facility] Comment on above: Order Comment: TEST BASIC METABOLIC PANEL WAS CANCELLED, 09/28/2021 04:56 Performed By: #### B MP ####[id number] [place] [address] POTASSIUM Canceled Normal [facility] Comment on above: Order Comment: TEST BASIC METABOLIC PANEL WAS CANCELLED, 09/28/2021 04:56 Performed By: #### B MP ####[id number] [place] [address] SODIUM Canceled Normal [facility] Comment on above: Order Comment: TEST BASIC METABOLIC PANEL WAS CANCELLED, 09/28/2021 04:56 Performed By: #### B MP ####[id number] [place] [address] UREA NITROGEN Canceled Normal [facility] Comment on above: Order Comment: TEST BASIC METABOLIC PANEL WAS CANCELLED, 09/28/2021 04:56 Performed By: #### B MP ####[id number] [place] [address] BASIC METABOLIC PANELon 040 Anion gap [Moles/Vol] 16 mmol/L Normal 10 - 20 [facility] Comment on above: Performed By: #### B MP #### [facility] [address] [place] [address] Calcium [Mass/Vol] 9.0 mg/dL Normal 8.6 - 10.6 [facility] Comment on above: Performed By: #### B MP #### [facility] [address] [place] [address] Chloride [Moles/Vol] 103 mmol/L Normal 98 - 107 [facility] Comment on above: Performed By: #### B MP #### [facility] [address] [place] [address] Creatinine [Mass/Vol] 0.83 mg/dL Normal 0.50 - 1.30 [facility] Comment on above: Performed By: #### B MP #### [facility] [address] [place] [address] eGFR MALE >90 Normal >90 [facility] Comment on above: Result Comment: CALC ULATIONS OF ESTIMATED GFR ARE PERFORMED USING THE 2020 CKD-EPI STUDY REFIT EQUATION WITHOUT THE RACE VARIABLE FOR THE IDMS-TRACEABLE CREATININE METHODS. https://jasn.asnjournals.org/content/early//ASN.13608 19150 Performed By: #### B MP #### [facility] [address] [place] [address] Glucose [Mass/Vol] 141 mg/dL High 74 - 99 [facility] Comment on above: Performed By: #### B MP #### [facility] [address] [place] [address] HCO3 (Bld) [Moles/Vol] 24 mmol/L Normal 21 - 32 [facility] Comment on above: Performed By: #### B MP #### [facility] [address] [place] [address] Potassium [Moles/Vol] 4.4 mmol/L Normal 3.5 - 5.3 [facility] Comment on above: Performed By: #### B MP #### [facility] [address] [place] [address] Sodium [Moles/Vol] 139 mmol/L Normal 136 - 145 [facility] Comment on above: Performed By: #### B MP #### [facility] [address] [place] [address] Urea nitrogen [Mass/Vol] 13 mg/dL Normal 6 - 23 [facility] Comment on above: Performed By: #### B MP #### [facility] [address] [place] [address] CBCon 09-27-2021 HCT Canceled Normal [facility] Comment on above: Order Comment: TEST URINALYSIS WAS CANCELLED, 09/19/2021 12:02 DUPLICATE ORDER. Performed By: #### U A #### [facility] [address] [place] [address] HGB Canceled Normal [facility] Comment on above: Order Comment: TEST URINALYSIS WAS CANCELLED, 09/19/2021 12:02 DUPLICATE ORDER. Performed By: #### U A #### [facility] [address] [place] [address] MCHC Canceled Normal [facility] Comment on above: Order Comment: TEST URINALYSIS WAS CANCELLED, 09/19/2021 12:02 DUPLICATE ORDER. Performed By: #### U A #### [facility] [address] [place] [address] MCV Canceled Normal [facility] Comment on above: Order Comment: TEST URINALYSIS WAS CANCELLED, 09/19/2021 12:02 DUPLICATE ORDER. Performed By: #### U A #### [facility] [address] [place] [address] NUCLEATED RBC Canceled Normal [facility] Comment on above: Order Comment: TEST URINALYSIS WAS CANCELLED, 09/19/2021 12:02 DUPLICATE ORDER. Performed By: #### U A #### [facility] [address] [place] [address] PLT Canceled Normal [facility] Comment on above: Order Comment: TEST URINALYSIS WAS CANCELLED, 09/19/2021 12:02 DUPLICATE ORDER. Performed By: #### U A #### [facility] [address] [place] [address] RBC Canceled Normal [facility] Comment on above: Order Comment: TEST URINALYSIS WAS CANCELLED, 09/19/2021 12:02 DUPLICATE ORDER. Performed By: #### U A #### [facility] [address] [place] [address] RDW-CV Canceled Normal [facility] Comment on above: Order Comment: TEST URINALYSIS WAS CANCELLED, 09/19/2021 12:02 DUPLICATE ORDER. Performed By: #### U A #### [facility] [address] [place] [address] WBC Canceled Normal [facility] Comment on above: Order Comment: TEST URINALYSIS WAS CANCELLED, 09/19/2021 12:02 DUPLICATE ORDER. Performed By: #### U A #### [facility] [address] [place] [address] Erythrocyte distribution width (RBC) [Ratio] 13.1 % Normal 11.5 - 14.5 [facility] Comment on above: Performed By: #### U A #### [facility] [address] [place] [address] Hematocrit (Bld) [Volume fraction] 41.3 % Normal 41.0 - 52.0 [facility] Comment on above: Performed By: #### U A #### [facility] [address] [place] [address] Hemoglobin (Bld) [Mass/Vol] 14.1 g/dL Normal 13.5 - 17.5 [facility] Comment on above: Performed By: #### U A #### [facility] [address] [place] [address] MCHC (RBC) [Mass/Vol] 34.1 g/dL Normal 32.0 - 36.0 [facility] Comment on above: Performed By: #### U A #### [facility] [address] [place] [address] MCV (RBC) [Entitic vol] 93 fL Normal 80 - 100 [facility] Comment on above: Performed By: #### U A #### [facility] [address] [place] [address] NUCLEATED RBC 0.0 /100 WBC Normal 0.0-0.0 [facility] Comment on above: Performed By: #### U A #### [facility] [address] [place] [address] Platelets (Bld) [#/Vol] 217 10*3/uL Normal 150 - 450 [facility] Comment on above: Performed By: #### U A #### [facility] [address] [place] [address] RBC 4.42 x10E12/L Low 4.50 - 5.90 [facility] Comment on above: Performed By: #### U A #### [facility] [address] [place] [address] WBC (Bld) [#/Vol] 13.6 10*3/uL High 4.4 - 11.3 [facility] Comment on above: Performed By: #### U A #### [facility] [address] [place] [address] Daily Progress Note-Orthopae dicson 09-27-2021 Daily Progress Note-Orthopaedics Service: Orthopaedics Subjective Data: JAY CARR is a 61 year old Male who is Hospital Day # 2 and POD #1 for 1. XLIF L3/4, 4/5;2. Navigated percutaneous PSIF L3-5. Patient resting comfortably in bed. Pain well controlled. Denies CP, SOB, F/C, N/V. No new N/T. Objective Data: Objective Information: T PRBPMAPSpO2 [id number]/7598% Date/Time09/27 5: 5: 5: 5: 5:39 Range(36.5C [...] Recent Arterial Blood Gas Results 09/26/2021 12:37 [id number] pH7.37 [id number] Base Excess0.8null Assessment and Plan: Code Status: Code StatusFull Code Assessment: 61 y/o male s/p L3/4-4/5 XLIF, L3-5 perc PSIF on 09/26/[address] Richardson, doing well. Plan: - WB status: WBAT, no excessive bending/twisting - DVT ppx: SCDs + Teds at all times while in bed, ambulation - Diet: Clear liquid diet, ADAT to regular - [employer] => PO pain medication per pain protocol [...] Timothy Steinberg M.D. Orthopaedic Surgery, PGY-2 Pager: [phone] Orthopaedic Spine Team Brannon Steinberg, PGY-2 [phone] - 1st call Orquidea Akbar PGY-4 [phone] - 2nd call Available via Doc Halo After 5pm-7am, weekends, holidays please page [phone] for tool and production planner resident for urgent questions/concerns. Attestation: Note Completion: [...] the note. I personally evaluated the patient [id number] Electronic Signatures: Sal Richardson) (Signed 29-Sep-2021 11:37) Authored: Note Completion Co-Signer: Service, Subjective Data, Objective Data, Assessment and Plan, Note Completion Timothy Steinberg (Resident)) (Signed 27-Sep-2021 06:49) Authored: Service, Subjective Data, Objective Data, Assessment and Plan, Note Completion Last Updated: 29-Sep-2021 11:37 by Sal Richardson) Normal [facility] Order Reconciliationon 09-27 Order Reconciliation [...] unarousable, and respiratory rate lessClinician Notes: HOLD [employer] Infusion and notify H.O. immediately 26-Sep-2021 15:16 [...] at Discharge: (more content not included)... Normal [facility] PT Evaluation j7-iq-xosmqhvr t - co-tx c/ OT for maximized saon 09-27-2021 PT Evaluation w3-bi-ceamfzzpi - co-tx c/ OT for maximized sa Rehab: Info: Mode of Treatmentco-treatment; physical therapy; co-tx c/ OT for maximized safety and mobility Time IN10:00 Time OUT10:27 Total Treatment [id number] Patient in ... at end of sessionchair; alarm on Communicated with ... at end of sessionbedside nurse Patient Effortexcellent Symptoms Noted During/After Treatmentnone Patient Profile Reviewedyes Onset of Illness/Injury or Date of [id number] Reason for ReferralXLIF L3/4, 4/5;2. Navigated percutaneous [...] Mobility/Tone: Bed Mobility Assessment/Interventions supine to sit Yfhkpn-qi-Flt Dodge (Bed Mobility)standby assist; 1 person assist Assistive Device (Bed Mobility)bed rails Comment, Bed MobilityPt. educated on log roll Transfer Assessment/Interventions sit to stand transfer; stand to sit transfer; bed to chair transfer Bed-Chair Dodge (Transfers)1 person assist; standby assist; verbal cues Sit-Stand Dodge (Transfers)standby assist; 1 person assist Sit-Stand Assistive Device (Transfers)no AD Stand-Sit Dodge (Transfers)standby assist; 1 person assist Stand-Sit Assistive [...] Motor: Sitting, Static (Balance)SBA Sitting, Dynamic (Balance)SBA Hhm-na-Zzqjn (Balance)SBA Standing, Static (Balance)SBA Standing, Dynamic (Balance)SBA [...] goals Thera (more content not included)... Normal [facility] ARTERIAL FULL PANELon 2021 Anion gap [Moles/Vol] 11 mmol/L Normal 10 - 25 [facility] Comment on above: Performed By: #### A FPA4 #### [facility] [address] [place] [address] BASE EXCESS-BLOOD 0.8 mmol/L Normal -2.0 - 3.0 [facility] Comment on above: Performed By: #### A FPA4 #### [facility] [address] [place] [address] BICARB, CALCULATED 26.6 mmol/L High 22.0 - 26.0 [facility] Comment on above: Performed By: #### A FPA4 #### [facility] [address] [place] [address] CALCIUM,IONIZED 1.15 mmol/L Normal 1.10 - 1.33 [facility] Comment on above: Performed By: #### A FPA4 #### [facility] [address] [place] [address] Chloride [Moles/Vol] 102 mmol/L Normal 98 - 107 [facility] Comment on above: Performed By: #### A FPA4 #### [facility] [address] [place] [address] Glucose [Mass/Vol] 114 mg/dL High 74 - 99 [facility] Comment on above: Performed By: #### A FPA4 #### [facility] [address] [place] [address] Hematocrit (Bld) [Volume fraction] 42.0 % Normal 41.0 - 52.0 [facility] Comment on above: Performed By: #### A FPA4 #### [facility] [address] [place] [address] Hemoglobin (Bld) [Mass/Vol] 14.1 g/dL Normal 13.5 - 17.5 [facility] Comment on above: Performed By: #### A FPA4 #### [facility] [address] [place] [address] Lactate [Moles/Vol] 1.3 mmol/L Normal 0.4 - 2.0 [facility] Comment on above: Performed By: #### A FPA4 #### [facility] [address] [place] [address] OXY HGB 97.5 % Normal 94.0 - 98.0 [facility] Comment on above: Performed By: #### A FPA4 #### [facility] [address] [place] [address] Oxygen (Bld) [Partial pressure] 160 mm[Hg] High 85 - 95 [facility] Comment on above: Performed By: #### A FPA4 #### [facility] [address] [place] [address] PATIENT TEMPERATURE 37.0 degrees C Normal [facility] Comment on above: Result Comment: NOTE : PATIENT RESULTS ARE NOT CORRECTED FOR TEMPERATURE. Performed By: #### A FPA4 #### [facility] [address] [place] [address] PCO2 46 mmHg High 38 - 42 [facility] Comment on above: Performed By: #### A FPA4 #### [facility] [address] [place] [address] pH (Bld) 7.37 [pH] Low 7.38 - 7.42 [facility] Comment on above: Performed By: #### A FPA4 #### [facility] [address] [place] [address] Potassium [Moles/Vol] 4.8 mmol/L Normal 3.5 - 5.3 [facility] Comment on above: Performed By: #### A FPA4 #### [facility] [address] [place] [address] SO2 100 % Normal 94 - 100 [facility] Comment on above: Performed By: #### A FPA4 #### [facility] [address] [place] [address] Sodium [Moles/Vol] 135 mmol/L Low 136 - 145 [facility] Comment on above: Performed By: #### A FPA4 #### [facility] [address] [place] [address] Admission Risk Screen - Adul ton 04-05-2022 Admission Risk Screen - Adult Allergies: Allergies: [...] AlertFor Ebola-like Symptoms: Isolate Patient and Notify Provider/Orchestra Conductor For Contact: Notify Provider/Orchestra Conductor Advance Directive: Advance Directive/DNRno Advance Directive Information [...] Communicatenone Learning Preferencesaudio Cultural Considerationsnone Developmental Considerationsnone Sabianism Considerationsnone Learning Assessment (Other Learner): Other learner availableno Depression Screen: During the past month, have you often been bothered by feeling down, depressed or hopelessno During the past month, have you often had little interest or pleasure in doing thingsno Have you had any thoughts of harming anyone elseno [place] Suicide: Risk Screen Not Applicable/Able to Answerable to be screened In the Past Month: Have you wished you were or could go to sleep and not wake upno(1) In the Past Month: Have you had any actual thoughts of killing yourself no(1) Lifetime: Have you ever done, started to do, or prepared to do anything to end your lifeno(1) [place] Suicide Risknegative Adult Nutrition Screen: Have you [...] Spiritual Screen: Are there any cultural, spiritual, gnosticism practices/values/needs that are important for us to knowno CAGE: Is this an injured patient at a Trauma Center ([facility] /[place]): no Vaccinations: Vaccination - Influenza Vaccination Screen: Is it flu season (between and September 21)Yes Screening for identified contraindications to influenza vaccinationpatient already received vaccine this season Vaccination - Pneumonia Vaccination Screen: Patient has received a previous pneumonia vaccine:no/unknown... Immunocompetent persons with underlying chronic conditions or r (more content not included)... Normal [facility] Daily Progress Note-Orthopae kaison 09-26-2021 [...] Recent Arterial Blood Gas Results 09/26/2021 12:37 [id number] pH7.37 [id number] Base Excess0.8null Assessment and Plan: Code Status: Code StatusFull Code Assessment: 61 y/o male s/p L3/4-4/5 XLIF, L3-5 perc PSIF on 09/26/[address] Richardson, doing well. Plan: - WB status: WBAT, no excessive bending/twisting - DVT ppx: SCDs + Teds at all times while in bed, ambulation - Diet: Clear liquid diet, ADAT to regular - [employer] => PO pain medication per pain protocol - 24 hr perioperative abx: clinda x 4 doses - FEN: Continue NS at 100cc/hr; HLIV with good PO intake - Bowel Regimen: Colace, Dulcolax, Senna - PT/OT consult - Continue home medications - Discontinue goodrich catheter POD #1 - Decadron 4mg q6hr x4 doses Dispo: to VERONICA Steinberg M.D. Orthopaedic Surgery, PGY-2 Pager: [phone] Orthopaedic Spine Team Brannon Steinberg, PGY-2 84561 - 1st call Orquidea Akbar, PGY-4 [phone] - 2nd call Available via Doc Halo After 5pm-7am, weekends, holidays please page [phone] for tool and production planner resident for urgent questions/concerns. Attestation: Note Completion: [...] the note. I personally evaluated the patient [id number] Electronic Signatures: Sal Richardson) (Signed 29-Sep-2021 11:38) Authored: Note Completion Co-Signer: Service, Subjective Data, Objective Data, Assessment and Plan, Note Completion Timothy Steinberg (Resident)) (Signed 26-Sep-2021 15:36) Authored: Service, Subjective Data, Objective Data, Assessment and Plan, Note Completion Last Updated: 29-Sep-2021 11:38 by Sal Richardson) Normal [facility] Discharge Planning [id number] 0 09-26-2021 Discharge Planning Note2 Discharge Planning: Planned Dispositionhome Anticipated Discharge [id number] Discharge Planning 09/27/21 1335 Transitional Care Coordination Progress Note: TCC verified demo is correct. lives at home with . pcp audrey armstrong. received covid vaccine x2 and booster x1. feels safe to return home today Patient discussed during interdisciplinary rounds. Team members present: MD/PUBLIC WORKS LABORER, TCC, Plan per Medical/Surgical team: patient goodrich out. sprinkler tender changed to oral with pain control. MR for dc after working with PT OT today Status: inpatient Payor source: commercial Discharge disposition: home no needs per PT OT eval Potential Barriers: ADOD: today Calli Jones RN TCC 09/27/21 Patient discharged home with . Heather Foster RN Assessment: Discharge Planning Assessment [id number] Discharge Planning Assessment Completed bycalli jones RN TCC Primary Contact Name and Numberrae Becker [phone] Prior Level of FunctioningNA Lives Withspouse(1) Living Arrangementshouse(1) Stated Reason for Admissionback and hip pain(1) [place] ([place]) PCPAudrey Armstrong [facility] [place] Recent Falls/ Injury/ Need Assist with AmbulationNA DME Supplier Name/NumberNA Home Care Agency/Support ServicesNA Diabetic/Supplies NeededNA Hemodialysis ScheduleNA Resource/Environmental Concernsnone(1) Anticipated Transition Toportage(1) Services Anticipated at Transitionnon(1) Readmission Within the Last 30 Daysno previous admission in last 30 days PCP Last Date Seende 2020 InsuranceCommercial Transportation Home Who/HowWihortencia takes to app and will be ride home today Medication Adherence/Afford/Obtainy es O2 LPMNA Nursing Checklist: Lines/Cathetersremoved/a ppropriate for next level of care Discharge Med Rec Reconciled with Loree Patient has Prescriptionsyes Transportation for Discharge Confirmedyes Follow up Reviewedyes Discharge Instructions Reviewed WithPatient Discharge Instructions Outcomeverbalize recall/understanding Discharge Instructions Review Completed with Patient/Family (diet, activity, pt instructions)yes Discharge Documentation: Discharge/Transfer Date/Oqji12-Dvh-3054 17:00 Discharged Accompanied Byspouse Discharge Modewheelchair Transportation Methodprivate car Code StatusCode Status order at time of discharge: Full Code [place] DNR Form Sent with Patient and/or Familyn/a Valuables/Medications/Be longings [facility]es [facility] Electronic Signatures: HEDY SHEPPARDRN) (Signed 26-Sep-2021 21:59) Authored: Discharge Planning, Assessment, Discharge Documentation Heather Foster) (Signed 27-Sep-2021 17:12) Authored: Discharge Planning, Nursing Checklist, Discharge Documentation Calli Jones) (Signed 27-Sep-2021 13:35) Authored: Discharge Planning, Assessment Last Updated: 27-Sep-2021 17:12 by Heather Foster (RN) References: 1. Data Referenced From Patient Profile - Adult v2 26-Sep-2021 21:07 Normal [facility] Discharge [id number] 022 Discharge Profile2 Discharge Orders: Anticipated Discharge Date: Anticipated Discharge [id number] Problem List: Additional Dx: Lumbar radicular pain: [...] HAVE ANTONIO REMOVED IN 3 WKS. AT [facility] [address] [facility] 5TH FLOOR ON 10/18/2021 AT 0930 WITH [facility] SANTIAGO. REHAB FACILITIES OR HOME CARE MAY REMOVE ANTONIO OR SUTURES. Wound Care 2: Wound SiteBACK (Lumbar Spine) Wound Typesurgical incision Change Dressingdaily Cleanse Withsoap and water Cover Withabdominal dressing Tape Withpaper tape Instructionsno lotions, creams, or tub soaks Other InstructionsPLEASE HAVE ANTONIO REMOVED IN 3 WKS. AT [facility] [address] [facility] 5TH FLOOR ON 10/18/2021 AT 0930 WITH [...] floor. Patient was initially started on dilaudid HIGH SCHOOL ACADEMIC COACH x24 hours and then transitioned to an [...] Call to Schedule in6 weeks, PLEASE CALL [phone] TO SCHEDULE YOUR AMBER (more content not included)... Normal [facility] [place] [facility] [place] [facility] [place] PRE[place]ATIVE DIAGNOSIS: Spinal stenosis and spondylolisthesis L3-4 and L4-5 in a patient with unrelenting claudication and radiculopathy. POSTOPERATIVE DIAGNOSIS: Spinal stenosis and spondylolisthesis L3-4 and L4-5 in a patient with unrelenting claudication and radiculopathy. OPERATION/PROCEDURE: Anterior lumbar interbody fusion by extreme lateral approach at L3-4 and L4-5 with use of interbody cage device x2. SURGEON: Sal Richardson MD. LEASE ADMINISTRATION SUPERVISOR(S): assistant store manager: Cb Casanova PA-C. Second human services assistant: Brannon Steinberg, second resident. ANESTHESIA: [...] Deep layers were repaired using 0 Vicryl bpqwhq-xv-bfumr sutures, deep dermal layer was repaired using 2-0 Vicryl sutures, and the skin was repaired using antonio. Dry sterile dressing was ap (more content not included)... Normal [facility] Operative [place] - [facility] [place] DIAGNOSIS: POSTOPERATIVE DIAGNOSIS: [...] Deep layers were repaired using 0 Vicryl hbisea-ba-jdxyl sutures, deep dermal layer was repaired using [...] instrumentation and fusion. SURGEON: Sal Richardson MD. LEASE ADMINISTRATION SUPERVISOR(S): ANESTHESIA: This is part 2 of a two-staged procedure. Part 1 was dictated in dictation #[id number]. Refer to dictation #[id number] for all details regarding the first part of the surgery. Sal Richardson MD EST EST DICTATION NUMBER: [id number] INTERNAL JOB NUMBER: [id number] CC: Sal Richardson MD, Electronic Signatures: Sal Richardson) (Signed on 03-Oct-2021 12:03) Authored Unsigned, Draft (SYS GENERATED) (Entered on 30-Sep-2021 07:37) Entered Last Updated: 03-Oct-2021 12:03 by Sal Richardson) [facility] Order Reconciliationon 09-26 Order Reconciliation Page 1 Admission Reconciliation Document Reconciliation Type: Admission from OR requested on behalf of Timothy Steinberg (Resident) done by Timothy Steinberg (Resident)) Admission from OR - Reconciliation: 26-Sep-2021 18:10 by: Timothy Steinberg (Resident)) Home MedicationsEnteredLast Dose TakenReconciled with current Order Reconciliation Comment/ Additional Information hydroxychloroquine 200 mg oral tablet 1 tab(s) oral 2 times a [id number]-[id number]-056026-Sep-2021 Hydroxychloroquine - PEDS Tablet (PLAQUENIL)DOSE = 200 mg Oral 2 Times a Dayhydroxychloroquine 200 mg oral tablet continued as the inpatient order Hydroxychloroquine - PEDS irbesartan 300 mg oral tablet 1 tab(s) oral once a [id number]-193 2 Reviewed and Held methocarbamol 500 mg oral tablet 2 tab(s) oral every 8 -Ylc-913526-Sep-2021 Reviewed and Held NIFEdipine 30 mg oral tablet, extended release 1 tab(s) oral once a day [id number] NIFEdipine (PROCARDIA XL) Extended Release Tablet, Extended ReleaseDOSE = 30 mg Oral DailyNIFEdipine 30 mg oral tablet, extended release continued as the inpatient order NIFEdipine (PROCARDIA XL) Extended Release pantoprazole 40 mg oral delayed release tablet 1 tab(s) oral once a day [id number] Pantoprazole Enteric Coated Tablet (PROTONIX)DOSE = 40 mg Oral Dailypantoprazole 40 mg oral delayed release tablet continued as the inpatient order Pantoprazole tiZANidine 4 mg oral tablet 1 oral [id number] Reviewed and Held Vitamin C 1 3 times a usq98-Jkg-161533-Tyy-375 2 Reviewed and Held Vitamin D3 1 3 times a hhk00-Bgs-856769-Axr-652 2 Reviewed and Held Zinc 140 mg [...] of 4 mg regardless of dose. HYDROmorphone HIGH SCHOOL ACADEMIC COACH 25 mg/ NaCL 0.9% 50 mL (DILAUDID IV HIGH SCHOOL ACADEMIC COACH)DEMAND/ HIGH SCHOOL ACADEMIC COACH Dose = 0.2 mgDELAY/ Lockout Time Period [...] unarousable, and respiratory rate lessClinician Notes: HOLD HIGH S[employer]OL ACADEMIC COACH Infusion and notify H.O. immediately Ondansetron Injectable [...] hours: Do NOT use with Bisacodyl. Normal [facility] Patient Profile - Adult v2on 09-26-2021 Patient Profile - Adult v2 Profile: Initial Info: How to be AddressedPaul(1) Spoken Language PreferredEnglish (1) Stated Reason for Admissionback and hip pain Wants Family/Rep Notified of Admissionno Notify PCPdo not notify PCP Informed of Patient Visiting Rightsyes [place] Patient Belongingsremains with patient Patient Belongings Remaining [...] From 1. Vital Signs 26-Sep-2021 07:09 Normal [facility] Patient Profile - Preop v3on 09-26-2021 Patient Profile - Preop v3 Patient Profile - Preop: Initial Info: Patient DemographicsName: JAY CARR Date: 1960 Address: [address] [place] [address], [place], [address] Primary Phone [phone] How to be AddressedPaul Spoken Language PreferredEnglish [...] Withspouse Living Arrangementshouse Resource/Environmental Concernsnone Anticipated Transition Toportage Services Anticipated at Transitionnone Tobacco Use: Tobacco Useno Pre-op Checklist: Arrival Iwxy00-Zze-0908 NPOyes ID Band On Patientpatient ID (name), [...] 26-Sep-2021 07:11 by Maisha Meyer (ALICE) Normal [facility] CORONAVIRUS 2019, SCREEN ASY MPTOMATICon 09-25-2021 SARS-CoV-2 (COVID-19) RNA LU+probe Ql (Unsp spec) Not detected Normal Not Detected [facility] Comment on above: Result Comment: [...] patient management decisions. Fact sheet for providers: https://www.fda.gov/media/026999/download Fact sheet for patients: https://www.fda.gov/media/843602/download This test has received FDA Emergency Use Authorization (EUA) and has been verified by [facility] ([facility]). This test is only authorized for the duration of time that circumstances exist to justify the authorization of the emergency use of in vitro diagnostic tests for the detection of SARS-CoV-2 virus and/or diagnosis of COVID-19 infection under section 564(b)(1) of the Act, 21 U.S.C. 360bbb-3(b)(1), unless the authorization is terminated or revoked sooner. [facility] is certified under CLIA-88 as qualified to perform high complexity testing. Testing is performed in the [facility] laboratories located at [address] [place] [address]. Performed By: #### U ARFX #### [place] [address] Lab Specimen Source Nasal, Nasopharyngeal Normal [facility] Comment on above: Performed By: #### U ARFX #### [place] [address] Covid 19 Resultson 2 SARS-CoV-2 (COVID-19) RNA [...] You may also be contacted by the [facility] to see if any of your [...] or Naproxen (Aleve) can also be used. Pxqn-nyy-frhrora cough and cold medicines can be used according to the instructions on the package. Some ipzp-ema-ubgfgpd medicines also contain acetaminophen. Make sure you [...] water are not available, use alcohol-based hand header machine operator. Avoid touching your eyes, nose, and mouth [...] 24 mary (more content not included)... Normal [facility] COAGULATION SCREENon 022 aPTT Coag (Bld) [Time] 34 s Normal 26 - 39 [facility] Comment on above: Result Comment: THE APTT IS NO LONGER USED FOR MONITORING UNFRACTIONATED HEPARIN THERAPY. FOR MONITORING HEPARIN THERAPY, USE THE HEPARIN ASSAY. Performed By: #### U ARFX #### [facility] [address] [place] [address] PT Coag (PPP) [Time] 11.1 s Normal 9.8 - 13.4 [facility] Comment on above: Performed By: #### U ARFX #### [facility] [address] [place] [address] PT, INR 1.0 Normal 0.9 - 1.1 [facility] Comment on above: Performed By: #### U ARFX #### [facility] [address] [place] [address] Laboratory - Blood bankon ABO group Nom [...] SCREEN PATIENT: JAY CARR LOCATION: [facility] STOLL#: [id number] : 62 AGE: SEX: M ORDERED BY: SAL RICHARDSON SOURCE: ANTERIOR NARES COLLECTED: 09/19/21 10:10 ANTIBIOTICS AT BRAEDEN.: RECEIVED : 09/19/21 12:47 SITE: Nasal R E S U L T S STAPH/MRSA SCREEN FINAL 09/20/21 13:57 NO Staphylococcus aureus ISOLATED. Normal [facility] Comment on above: Performed By: #### S TAPH #### [facility] [address] [place] [address] TYPE + SCREENon 09-19-2021 ABO TYPE O Normal [facility] Comment on above: Performed By: #### T +S #### [facility] [address] [place] [address] RH TYPE Negative Normal [facility] Comment on above: Performed By: #### T +S #### [facility] [address] [place] [address] URINALYSISon 09-19-2021 Appearance (U) Canceled Normal [facility] Comment on above: Order Comment: TEST URINALYSIS WAS CANCELLED, 09/19/2021 12:02 DUPLICATE ORDER. Performed By: #### U A #### [facility] [address] [place] [address] ASCORBIC ACID Canceled Normal [facility] Comment on above: Order Comment: TEST URINALYSIS WAS CANCELLED, 09/19/2021 12:02 DUPLICATE ORDER. Result Comment: Conc entrations > = 20 mg/dL of ascorbic acid can be expected to cause strong interference in the reactions testing for glucose, nitrite and blood. It is recommended to discontinue Vitamin C administration and retest in 10 hours. Performed By: #### U A #### [facility] [address] [place] [address] Bilirubin Ql (U) Canceled Normal [facility] Comment on above: Order Comment: TEST URINALYSIS WAS CANCELLED, 09/19/2021 12:02 DUPLICATE ORDER. Performed By: #### U A #### [facility] [address] [place] [address] Color (U) Canceled Normal [facility] Comment on above: Order Comment: TEST URINALYSIS WAS CANCELLED, 09/19/2021 12:02 DUPLICATE ORDER. Performed By: #### U A #### [facility] [address] [place] [address] Glucose Ql (U) Canceled Normal [facility] Comment on above: Order Comment: TEST URINALYSIS WAS CANCELLED, 09/19/2021 12:02 DUPLICATE ORDER. Performed By: #### U A #### [facility] [address] [place] [address] Hemoglobin Ql (U) Canceled Normal [facility] Comment on above: Order Comment: TEST URINALYSIS WAS CANCELLED, 09/19/2021 12:02 DUPLICATE ORDER. Performed By: #### U A #### [facility] [address] [place] [address] Ketones Ql (U) Canceled Normal [facility] Comment on above: Order Comment: TEST URINALYSIS WAS CANCELLED, 09/19/2021 12:02 DUPLICATE ORDER. Performed By: #### U A #### [facility] [address] [place] [address] Leukocyte esterase Test strip Ql (U) Canceled Normal [facility] Comment on above: Order Comment: TEST URINALYSIS WAS CANCELLED, 09/19/2021 12:02 DUPLICATE ORDER. Performed By: #### U A #### [facility] [address] [place] [address] Nitrite Ql (U) Canceled Normal [facility] Comment on above: Order Comment: TEST URINALYSIS WAS CANCELLED, 09/19/2021 12:02 DUPLICATE ORDER. Performed By: #### U A #### [facility] [address] [place] [address] pH Canceled Normal [facility] Comment on above: Order Comment: TEST URINALYSIS WAS CANCELLED, 09/19/2021 12:02 DUPLICATE ORDER. Performed By: #### U A #### [facility] [address] [place] [address] Protein Ql (U) Canceled Normal [facility] Comment on above: Order Comment: TEST URINALYSIS WAS CANCELLED, 09/19/2021 12:02 DUPLICATE ORDER. Performed By: #### U A #### [facility] [address] [place] [address] Specific gravity (U) [Rel density] Canceled Normal [facility] Comment on above: Order Comment: TEST URINALYSIS WAS CANCELLED, 09/19/2021 12:02 DUPLICATE ORDER. Performed By: #### U A #### [facility] [address] [place] [address] UROBILINOGEN Canceled Normal [facility] Comment on above: Order Comment: TEST URINALYSIS WAS CANCELLED, 09/19/2021 12:02 DUPLICATE ORDER. Performed By: #### U A #### [facility] [address] [place] [address] URINALYSIS WITH CULTURE IF I NDICATEDon 09-19-2021 Appearance (U) CLEAR Normal CLEAR [facility] Comment on above: Performed By: #### U ARFX #### [facility] [address] [place] [address] Bilirubin Ql (U) Negative Normal NEGATIVE [facility] Comment on above: Performed By: #### U ARFX #### [facility] [address] [place] [address] Color (U) YELLOW Normal STRAW,YELL OW [facility] Comment on above: Performed By: #### U ARFX #### [facility] [address] [place] [address] Glucose Ql (U) Negative Normal NEGATIVE [facility] Comment on above: Performed By: #### U ARFX #### [facility] [address] [place] [address] Hemoglobin Ql (U) Negative Normal NEGATIVE [facility] Comment on above: Performed By: #### U ARFX #### [facility] [address] [place] [address] Ketones Ql (U) Negative Normal NEGATIVE [facility] Comment on above: Performed By: #### U ARFX #### [facility] [address] [place] [address] Leukocyte esterase Test strip Ql (U) Negative Normal NEGATIVE [facility] Comment on above: Performed By: #### U ARFX #### [facility] [address] [place] [address] Nitrite Ql (U) Negative Normal NEGATIVE [facility] Comment on above: Performed By: #### U ARFX #### [facility] [address] [place] [address] pH (U) 6.0 [pH] Normal 5.0 - 8.0 [facility] Comment on above: Performed By: #### U ARFX #### [facility] [address] [place] [address] Protein Ql (U) Negative Normal NEGATIVE [facility] Comment on above: Performed By: #### U ARFX #### [facility] [address] [place] [address] Specific gravity (U) [Rel density] 1.016 Normal 1.005 - 1.035 [facility] Comment on above: Performed By: #### U ARFX #### [facility] [address] [place] [address] Urobilinogen (U) [Mass/Vol] mg/dL Normal 0.0 - 1.9 [facility] Comment on above: Performed By: #### U ARFX #### [facility] [address] [place] [address] Color (U) YELLOW See Below [facility]-Anesthesiol ogy-Ctr [...] may no (more content not included)... Normal [facility] Visiton 08-03-2021 Follow-up visit Diagnoses/Problems Lumbar [...] Hold For - Scheduling,Retrospective Authorization Requested for: [id number] Lumbar back pain, Lumbar stenosis with neurogenic [...] disorder with myelopathy. COMPARISON: None. ACCESSION NUMBER(S): [id number] ORDERING CLINICIAN: SAL RICHARDSON FINDINGS: C-spine, two views Anterior spinal fusion C5-C7 with intact hardware. There is normal alignment. No fracture. No degenerative changes seen. IMPRESSION: Anterior spinal fusion C5-C7 without evidence hardware failure Electronically signed by: JULIA ARAIZA MD Normal [facility] CORONAVIRUS 2018, SCREEN ASY MPTOMATICon 07-05-2021 DATE OF SYMPTOM ONSET [YYYYMMDD]? Canceled Normal [facility] Comment on above: Order Comment: TEST CORONAVIRUS 2018, SCREEN ASYMPTOMATIC WAS CANCELLED, 07/05/2021 13:31 ptdid not have test done.. Performed By: #### U ARFX #### [facility] [address] [place] [address] SARS-CoV-2 (COVID-19) RNA LU+probe Ql (Unsp spec) Canceled Normal [facility] Comment on above: Order Comment: [...] patient management decisions. Fact sheet for providers: https://www.fda.gov/media/143609/download Fact sheet for patients: https://www.fda.gov/media/956459/download This test has received FDA Emergency Use Authorization (EUA) and has been verified by [facility] ([facility]). This test is only authorized for the duration of time that circumstances exist to justify the authorization of the emergency use of in vitro diagnostic tests for the detection of SARS-CoV-2 virus and/or diagnosis of COVID-19 infection under section 564(b)(1) of the Act, 21 U.S.C. 360bbb-3(b)(1), unless the authorization is terminated or revoked sooner. [facility] is certified under CLIA-88 as qualified to perform high complexity testing. Testing is performed in the [facility] laboratories located at [address] [place] [address]. Performed By: #### U ARFX #### [place] [address] ABO/RH GROUP TESTon 06-21-20 21 ABO TYPE O Normal [facility] Comment on above: Performed By: #### U ARFX #### [place] [address] RH TYPE Negative Normal [facility] Comment on above: Performed By: #### U ARFX #### [place] [address] Operative Reports - [facility] [place] [address] Patient Name: PAUL. Trena CARR : 1960 Date of Service: 06/21/2021 Patient Location: [place] [address] Patient Type: O Surgeon: Sal Richardson MD [...] anterior plate instrumentation. SURGEON: Sal Richardson MD LEASE ADMINISTRATION SUPERVISOR(S): Ad Valdivia MD, chief resident. ANESTHESIA: ESTIMATED [...] current moratorium due to short staffing at [facility]. The patient agreed to have the [...] excellent posi (more content not included)... Normal [facility] Order Reconciliationon 06-21 Order Reconciliation [...] a day (more content not included)... Normal [facility] Order Reconciliation Page 1 Admission Reconciliation Document Reconciliation Type: Admission requested on behalf of Cheikh August (Resident) done by Cheikh August ( (Resident)) Admission - Reconciliation: 21-Jun-2021 06:37 by: Cheikh August (Resident)) Home MedicationsEnteredLast Dose TakenReconciled with current Order Reconciliation Comment/ Additional Information celecoxib 200 mg oral capsule 1 cap(s) oral 2 times a hra00-Bgv-9703 Reviewed and Held gabapentin 300 mg oral capsule 1 tab(s) oral once a zwf79-Qtf-1396 Reviewed and Held hydroxychloroquine 200 mg oral tablet 1 tab(s) oral 2 times a qtu66-Baa-0526 Hydroxychloroquine Tablet (PLAQUENIL)DOSE = 200 mg Oral 2 Times a Day hydroxychloroquine 200 mg oral tablet continued as the inpatient order Hydroxychloroquine irbesartan 300 mg oral tablet 1 tab(s) oral once a pde16-Rfi-3435 Reviewed and Held NIFEdipine 30 mg oral [...] Pantoprazole Vitamin C 1 3 times a nfg99-Hmc-6981 Reviewed and Held Vitamin D3 1 3 times a znl87-Oie-4798 Reviewed and Held Zinc 140 mg (as elemental zinc 50 mg) oral tablet 1 tab(s) oral once a day 21-Jun-2021 Reviewed and Held Normal [facility] Patient Profile - Preop v3on 06-21-2021 Patient Profile - Preop v3 Patient Profile - Preop: Initial Info: Patient DemographicsName: JAY CARR Date: 1960 Address: [address] [place], [place] [address]. [address] [place] [address] Primary Phone [phone] How to be AddressedPaul Spoken Language PreferredEnglish Source of Informationpatient Stated Reason for Admissionback surgery Primary Contact Name and NumberAna Lilia Carr () [phone] Limitations on Visitors/Phone Callsnone Patient Belongings2 bags in pacu, glasses and phone with pt [facility]ations [facility]: Weight in kg98.9 kilogram(s) Weight in lcu118 pound(s) Weight Methodactual (measured) Scale Typestanding Height [...] Withspouse Living Arrangementshouse Resource/Environmental Concernsnone Anticipated Transition Toportage Services Anticipated at Transitionnone Tobacco Use: Tobacco Useno Pre-op Checklist: Arrival [id number] Arrival Time06:43 Procedure TypeC5-7 decompression and fusion [...] 21-Jun-2021 06:45 by Maisha Meyer (ALICE) Normal [facility] CORONAVIRUS 2019, SCREEN ASY MPTOMATICon 06-20-2021 SARS-CoV-2 (COVID-19) RNA LU+probe Ql (Unsp spec) Not detected Normal Not Detected [facility] Comment on above: Result Comment: [...] patient management decisions. Fact sheet for providers: https://www.fda.gov/media/441575/download Fact sheet for patients: https://www.fda.gov/media/801177/download This test has received FDA Emergency Use Authorization (EUA) and has been verified by [facility] ([facility]). This test is only authorized for the duration of time that circumstances exist to justify the authorization of the emergency use of in vitro diagnostic tests for the detection of SARS-CoV-2 virus and/or diagnosis of COVID-19 infection under section 564(b)(1) of the Act, 21 U.S.C. 360bbb-3(b)(1), unless the authorization is terminated or revoked sooner. [facility] is certified under CLIA-88 as qualified to perform high complexity testing. Testing is performed in the [facility] laboratories located at [address] [place] [address]. Performed By: #### U ARFX #### [address] [place] [address] Covid 19 Resultson 1 SARS-CoV-2 (COVID-19) RNA [...] be contacted by the [facility] to see if any of your [...] or Naproxen (Aleve) can also be used. Iguy-hpg-msuvtoo cough and cold medicines can be used according to the instructions on the package. Some fmgh-ghp-bzajdwk medicines also contain acetaminophen. Make sure you [...] water are not available, use alcohol-based hand header machine operator. Avoid touching your eyes, nose, and mouth [...] 24 mary (more content not included)... Normal [facility] CORONAVIRUS 2019, SCREEN ASY MPTOMATICon 06-19-2021 Lab Specimen Source Nasal, Nasopharyngeal Normal [facility] Comment on above: Performed By: #### U ARFX #### [facility] [address] [place] [address] BASIC METABOLIC PANELon 05-24 Anion gap [Moles/Vol] 14 mmol/L Normal 10 - 20 [facility] Comment on above: Performed By: #### B MP #### [facility] [address] [place] [address] Calcium [Mass/Vol] 9.0 mg/dL Normal 8.6 - 10.6 [facility] Comment on above: Performed By: #### B MP #### [facility] [address] [place] [address] Chloride [Moles/Vol] 105 mmol/L Normal 98 - 107 [facility] Comment on above: Performed By: #### B MP #### [facility] [address] [place] [address] Creatinine [Mass/Vol] 0.85 mg/dL Normal 0.50 - 1.30 [facility] Comment on above: Performed By: #### B MP #### [facility] [address] [place] [address] GFR- AM. >60 Normal >60 [facility] Comment on above: Result Comment: CALC ULATIONS OF ESTIMATED GFR ARE PERFORMED USING THE MDRD STUDY EQUATION FOR THE IDMS-TRACEABLE CREATININE METHODS. CLIN CHEM 2007;53:766-72 Performed By: #### B MP #### [facility] [address] [place] [address] GFR-NON AM. >60 Normal >60 [facility] Comment on above: Performed By: #### B MP #### [facility] [address] [place] [address] Glucose [Mass/Vol] 87 mg/dL Normal 74 - 99 [facility] Comment on above: Performed By: #### B MP #### [facility] [address] [place] [address] HCO3 (Bld) [Moles/Vol] 27 mmol/L Normal 21 - 32 [facility] Comment on above: Performed By: #### B MP #### [facility] [address] [place] [address] Potassium [Moles/Vol] 4.7 mmol/L Normal 3.5 - 5.3 [facility] Comment on above: Performed By: #### B MP #### [facility] [address] [place] [address] Sodium [Moles/Vol] 141 mmol/L Normal 136 - 145 [facility] Comment on above: Performed By: #### B MP #### [facility] [address] [place] [address] Urea nitrogen [Mass/Vol] 19 mg/dL Normal 6 - 23 [facility] Comment on above: Performed By: #### B MP #### [facility] [address] [place] [address] CBCon 06-02-2021 Erythrocyte distribution width (RBC) [Ratio] 12.4 % Normal 11.5 - 14.5 [facility] Comment on above: Performed By: #### U A #### [facility] [address] [place] [address] Hematocrit (Bld) [Volume fraction] 43.6 % Normal 41.0 - 52.0 [facility] Comment on above: Performed By: #### U A #### [facility] [address] [place] [address] Hemoglobin (Bld) [Mass/Vol] 14.8 g/dL Normal 13.5 - 17.5 [facility] Comment on above: Performed By: #### U A #### [facility] [address] [place] [address] MCHC (RBC) [Mass/Vol] 33.9 g/dL Normal 32.0 - 36.0 [facility] Comment on above: Performed By: #### U A #### [facility] [address] [place] [address] MCV (RBC) [Entitic vol] 93 fL Normal 80 - 100 [facility] Comment on above: Performed By: #### U A #### [facility] [address] [place] [address] NUCLEATED RBC 0.0 /100 WBC Normal 0.0-0.0 [facility] Comment on above: Performed By: #### U A #### [facility] [address] [place] [address] Platelets (Bld) [#/Vol] 295 10*3/uL Normal 150 - 450 [facility] Comment on above: Performed By: #### U A #### [facility] [address] [place] [address] RBC 4.69 x10E12/L Normal 4.50 - 5.90 [facility] Comment on above: Performed By: #### U A #### [facility] [address] [place] [address] WBC (Bld) [#/Vol] 8.5 10*3/uL Normal 4.4 - 11.3 [facility] Comment on above: Performed By: #### U A #### [facility] [address] [place] [address] COAGULATION SCREENon aPTT Coag (Bld) [Time] 31 s Normal 26 - 39 [facility] Comment on above: Result Comment: Note new reference range as of 05/23/2021 at 10:00am. Performed By: #### U A #### [facility] [address] [place] [address] PT Coag (PPP) [Time] 12.2 s Normal 9.8 - 13.4 [facility] Comment on above: Result Comment: Note new reference range as of 05/23/2021 at 10:00am. Performed By: #### U A #### [facility] [address] [place] [address] PT, INR 1.1 Normal 0.9 - 1.1 [facility] Comment on above: Performed By: #### U A #### [facility] [address] [place] [address] Laboratory - Blood bankon ABO group Nom [...] 06-02-20 STAPH/MRSA SCREEN PATIENT: JAY CARR [facility] [id number] : 62 AGE: SEX: M ORDERED BY: SAL RICHARDSON SOURCE: ANTERIOR NARES COLLECTED: 06/02/21 10:59 ANTIBIOTICS AT BRAEDEN.: RECEIVED : 06/02/21 13:35 SITE: Nasal R E S U L T S STAPH/MRSA SCREEN FINAL 06/04/21 07:50 NO Staphylococcus aureus ISOLATED. Normal [facility] Comment on above: Performed By: #### S TAPH #### [facility] [address] [place] [address] TH CHEST 2 VIEW PA AND LATon 06-02-2021 TH CHEST 2 VIEW PA AND LAT Patient Name: JAY CARR STUDY: TH CHEST 2 VIEW PA AND LAT; 06/02/2021 11:10 am INDICATION: covid follow up . COMPARISON: None. ACCESSION NUMBER(S): [id number] ORDERING CLINICIAN: SAL RICHARDSON FINDINGS: PA and [...] as stated. This study was interpreted at [facility], [place], [place]. Electronically signed by: RANJIT GONZALES MD Normal [facility] TYPE + SCREENon 06-02-2021 ABO TYPE O Normal [facility] Comment on above: Performed By: #### U A #### [facility] [address] [place] [address] RH TYPE Negative Normal [facility] Comment on above: Performed By: #### U A #### [facility] [address] [place] [address] UA MICROSCOPICon 06-02-2021 CA OXALATE CRYSTAL 3+ /HPF Abnormal [facility] Comment on above: Performed By: #### U A #### [facility] [address] [place] [address] Mucus Ql (Urine sed) 4+ /LPF Normal [facility] Comment on above: Performed By: #### U A #### [facility] [address] [place] [address] RBC 11 /HPF Abnormal 0-5 [facility] Comment on above: Performed By: #### U A #### [facility] [address] [place] [address] SQUAMOUS EPITH. CELLS 1 /HPF Normal [facility] Comment on above: Performed By: #### U A #### [facility] [address] [place] [address] WBC 1 /HPF Normal 0-5 [facility] Comment on above: Performed By: #### U A #### [facility] [address] [place] [address] URINALYSIS WITH CULTURE IF I NDICATEDon 06-02-2021 Appearance (U) HAZY Normal CLEAR [facility] Comment on above: Performed By: #### U A #### [facility] [address] [place] [address] Bilirubin Ql (U) Negative Normal NEGATIVE [facility] Comment on above: Performed By: #### U A #### [facility] [address] [place] [address] Color (U) YELLOW Normal STRAW,YELL OW [facility] Comment on above: Performed By: #### U A #### [facility] [address] [place] [address] Glucose Ql (U) Negative Normal NEGATIVE [facility] Comment on above: Performed By: #### U A #### [facility] [address] [place] [address] Hemoglobin Ql (U) Negative Normal NEGATIVE [facility] Comment on above: Performed By: #### U A #### [facility] [address] [place] [address] Ketones Ql (U) Negative Normal NEGATIVE [facility] Comment on above: Performed By: #### U A #### [facility] [address] [place] [address] Leukocyte esterase Test strip Ql (U) Negative Normal NEGATIVE [facility] Comment on above: Performed By: #### U A #### [facility] [address] [place] [address] Nitrite Ql (U) Negative Normal NEGATIVE [facility] Comment on above: Performed By: #### U A #### [facility] [address] [place] [address] pH (U) 5.0 [pH] Normal 5.0 - 8.0 [facility] Comment on above: Performed By: #### U A #### [facility] [address] [place] [address] Protein Ql (U) 100 (2+) Abnormal NEGATIVE [facility] Comment on above: Performed By: #### U A #### [facility] [address] [place] [address] Specific gravity (U) [Rel density] 1.026 Normal 1.005 - 1.035 [facility] Comment on above: Performed By: #### U A #### [facility] [address] [place] [address] Urobilinogen (U) [Mass/Vol] mg/dL Normal 0.0 - 1.9 [facility] Comment on above: Performed By: #### U A #### [facility] [address] [place] [address] Color (U) YELLOW See Below [facility] [...] 05-23-2021 Lab Specimen Source Nasal, Nasopharyngeal Normal [facility] Comment on above: Order Comment: TEST CORONAVIRUS 2019, SCREEN ASYMPTOMATIC WAS CANCELLED, 07/05/2021 13:31 ptdid not have test done.. Performed By: #### U ARFX #### [facility] [address] [place] [address] Tobacco Screening.on 021 Fall risk assessment a) [...] COMPARISON: Lumbosacral spine radiographs 02/09/2021 ACCESSION NUMBER(S): [id number] ORDERING CLINICIAN: TONJA GERARDO TECHNIQUE: Sagittal and [...] degenerative disc height loss at L2-L3 with qdtw-mk-tiqcfkor height loss at L1-L2. Conus: The lower [...] right, without spinal canal stenosis. There is qhba-qx-iiblktic right and mild left neural foraminal narrowing. [...] as stated. This study was interpreted at [facility], [place], [place]. Electronically signed by: STEVE YANG MD Normal [facility] No Panel Informationon 02-09 Normal -Orthopaedic s-[facility] Work Phone: Please click on the link to view the study images Normal -Orthopaedic [facility] Work Phone: SPINE, LUMBOSACRAL; MIN 4 EWSon 02-09-2021 SPINE, LUMBOSACRAL; MIN 4 VIEWS Patient Name: JAY CARR STUDY: Lumbar Spine, 4 views. INDICATION: Low back pain COMPARISON: None. ACCESSION NUMBER(S): [id number] ORDERING CLINICIAN: TONJA GERARDO FINDINGS: Grade 1 [...] Electronically signed by: JOSE GOEL MD Normal [facility] MRI L-Ext Joint w/o Contrast LTon 01-12-2021 [...] formation. No other focal left hip abnormality. [place] thanks you for the opportunity to care for your patient. Workstation ID: [id number] FINAL REPORT Dictated By: Batsheva Brown MD 01/12/2021 08:43 Assigned Physician: Batsheva Brown MD Reviewed and Electronically Signed By: Batsheva Brown MD 01/12/2021 09:09 Transcribed by: CAROLINA 01/12/2021 08:43 Technologist: ENGINE REPAIRER Normal [facility] Basic metabolic 2000 panelon 11-10-2020 Calcium [Mass/Vol] 9.5 mg/dL Normal 8.5-10.6 [facility] Chloride [Moles/Vol] 104 mmol/L Normal 98-107 [facility] CO2 [Moles/Vol] 28 mmol/L Normal 21-32 [facility] Creatinine [Mass/Vol] 0.85 mg/dL Normal 0.55-1.02 Lianna nt [facility] Glucose [Mass/Vol] 112 mg/dL High 70-99 [facility] Potassium [Moles/Vol] 4.2 mmol/L Normal 3.5-5.[address] [facility] Sodium [Moles/Vol] 142 mmol/L Normal 136-145 [facility] Urea nitrogen (BldV) [Mass/Vol] 20 mg/dL High 7.0-18.0 [facility] Urea nitrogen/Creatinine [Mass ratio] 24 mg/mg Normal [facility] CBC W Auto Differential pane l (Bld)on 11-10-2020 Basophils (Bld) [#/Vol] 0.0 thou/mcL Normal 0.0-0.2 [facility] Basophils/100 WBC (Bld) 0.5 % Normal 0-3 [facility] Differential cell count method Nom (Bld) AUTOMATED DIFFERENTIAL Normal [facility] Eosinophils (Bld) [#/Vol] 0.1 thou/mcL Normal 0.0-0.4 [facility] Eosinophils/100 WBC (Bld) 0.9 % Normal 0-7 [facility] Erythrocyte distribution width (RBC) [Entitic vol] 13.0 % Normal 11.7-15.0 [facility] Hematocrit (Bld) [Volume fraction] 43.4 % Normal 34.0-50.0 [facility] Hemoglobin (Bld) [Mass/Vol] 15.0 g/dL Normal 11.5-17.0 [facility] Lymphocytes (Bld) [#/Vol] 1.0 thou/mcL Normal 0.7-4.5 [facility] Lymphocytes/100 WBC (Bld) 15.6 % Normal 14-46 [facility] MCH (RBC) [Entitic mass] 32.5 Picograms Normal 27.0-34.0 [facility] MCHC (RBC) [Mass/Vol] 34.6 g/dL Normal 32.0-36.[address] [facility] MCV (RBC) [Entitic vol] 94.0 fL Normal 80-98 [facility] Monocytes (Bld) [#/Vol] 0.6 thou/mcL Normal 0.1-1.0 [facility] Monocytes/100 WBC (Bld) 9.8 % Normal 4-13 [facility] Neutrophils (Bld) [#/Vol] 4.7 thou/mcL Normal 1.5-7.8 [facility] Neutrophils/100 WBC (Bld) 73.2 % Normal 40-74 [facility] Platelet mean volume (Bld) [Entitic vol] 9.4 fL Normal 7.5-11.2 [facility] Platelets (Bld) [#/Vol] 220 thou/mcL Normal 140-415 [facility] RBC (Bld) [#/Vol] 4.62 x(10)6/mcL Normal 3.80-5.60 [facility] WBC (Bld) [#/Vol] 6.5 thou/mcL Normal 4.0-10.5 [facility] PT Coag (PPP) [Time]on 11-10 INR Coag (Bld) [Relative time] 0.9 {INR} Normal [facility] Comment on above: Result Comment: ENRRIQUE NG THE INDUCTION PHASE OF ORAL ANTICOAGULATION, THE INR MAY NOT REFLECT THE ANTICOAGULANT STATUS OF THE PATIENT. THERAPEUTIC RANGES FOR INR'S ARE: MOST CLINICAL SITUATIONS: INR 2.0-3.0 MECHANICAL PROSTHETIC VALVES: INR 2.5-3.5 CRITICAL: INR 5.0 Prothrombin Timeon PT Coag (PPP) [Time] 12.6 s Normal 11.9-14.6 [facility] aPTT Coag (Bld) [Time]on aPTT Coag (PPP) [Time] 38.6 s High 23.2-34.6 Mo [facility] Vital Signs Date Time Vital Sign Value Performing Clinician Facility 04-13-2024 09:42-0400 Blood Pressure Location Shun MACHADO [facility] 04-13-2024 09:42-0400 Body temperature 98.6 [degF] Shun MACHADO [facility] 04-13-2024 09:42-0400 Diastolic blood pressure 88 mm[Hg] Shun MACHADO [facility] 04-13-2024 09:42-0400 Heart rate 78 /min Shun COOK [facility] 04-13-2024 09:42-0400 Respiratory rate 16 /min Shun COOK [facility] 04-13-2024 09:42-0400 Systolic blood pressure 137 mm[Hg] Shun COOK [facility] 04-08-2023 10:38-0400 Blood Pressure Location Shun COOK [facility] 04-08-2023 10:38-0400 Diastolic blood pressure 82 mm[Hg] Shun COOK [facility] 04-08-2023 10:38-0400 Heart rate 71 /min Shun COOK [facility] 04-08-2023 10:38-0400 Systolic blood pressure 154 mm[Hg] Shun COOK [facility] 10-16-2022 14:18-0400 Blood Pressure Location Shun COOK [facility] 10-16-2022 14:18-0400 Diastolic blood pressure 94 mm[Hg] Shun COOK [facility] 10-16-2022 14:18-0400 Heart rate 72 /min Shun COOK [facility] 10-16-2022 14:18-0400 Systolic blood pressure 186 mm[Hg] Shun COOK [facility] 10-02-2022 13:36-0400 Blood Pressure Location Arely LOGAN [facility] [place] 10-02-2022 13:36-0400 Diastolic blood pressure 80 mm[Hg] Arely KRISHNAMURTHYL [facility] [place] 10-02-2022 13:36-0400 Heart rate 76 /min Arely KRISHNAMURTHYL [facility] [place] 10-02-2022 13:36-0400 Respiratory rate 16 /min Arely LOGAN [facility] [place] 10-02-2022 13:36-0400 Systolic blood pressure 144 mm[Hg] Arely KRISHNAMURTHYL [facility] [place] 02-15-2022 14:19-0400 Diastolic blood pressure 95 mm[Hg] MD Audrey Armstrong Work Phone: [facility] 02-15-2022 14:19-0400 Heart rate 66 /min MD Audrey Armstrong Work Phone: [facility] 02-15-2022 14:19-0400 Respiratory rate 16 /min MD Audrey Armstrong Work Phone: [facility] 02-15-2022 14:19-0400 SaO2% (BldA) [Mass fraction] 99 % MD Audrey Armstrong Work Phone: [facility] 02-15-2022 14:19-0400 Systolic blood pressure 170 mm[Hg] MD Audrey Armstrong Work Phone: [facility] 02-15-2022 13:04-0400 Inhaled oxygen flow rate 6 L/min MD Audrey Armstrong Work Phone: [facility] 02-15-2022 12:00-0400 Body weight 42 mg MD Audrey Armstrong Work Phone: [facility] 02-15-2022 10:03-0400 Body height 175.26 cm MD Audrey Armstrong Work Phone: [facility] 02-15-2022 10:03-0400 Body mass index (BMI) [Ratio] 31.3 kg/m2 MD Audrey Armstrong Work Phone: [facility] 02-15-2022 10:03-0400 Body weight 96.16 kg MD Audrey Armstrong Work Phone: [facility] 02-15-2022 07:29-0400 Body temperature 98.8 [degF] MD Audrey Armstrong Work Phone: [facility] 01-24-2022 13:59-0400 Blood Pressure Location Arely NILL [facility] [place] 01-24-2022 13:59-0400 Diastolic blood pressure 74 mm[Hg] Arely NILL [facility] [place] 01-24-2022 13:59-0400 Heart rate 72 /min Arely NILL [facility] [place] 01-24-2022 13:59-0400 Respiratory rate 16 /min Arely NILL [facility] [place] 01-24-2022 13:59-0400 Systolic blood pressure 140 mm[Hg] Arely NILL [facility] [place] 01-19-2022 16:45-0400 Diastolic blood pressure 84 mm[Hg] MD Audrey Armstrong Work Phone: [facility] 01-19-2022 16:45-0400 Heart rate 70 /min MD Audrey Armstrong Work Phone: [facility] 01-19-2022 16:45-0400 Respiratory rate 16 /min MD Audrey Armstrong Work Phone: [facility] 01-19-2022 16:45-0400 SaO2% (BldA) [Mass fraction] 98 % MD Audrey Armstrong Work Phone: [facility] 01-19-2022 16:45-0400 Systolic blood pressure 148 mm[Hg] MD Audrey Armstrong Work Phone: [facility] 01-19-2022 15:04-0400 Body height 177.8 cm MD Audrey Armstrong Work Phone: [facility] 01-19-2022 15:04-0400 Body mass index (BMI) [Ratio] 31.2 kg/m2 MD Audrey Armstrong Work Phone: [facility] 01-19-2022 15:04-0400 Body weight 98.8 kg MD Audrey Arsmtrong Work Phone: [facility] 01-19-2022 14:24-0400 Body temperature 98.6 [degF] MD Audrey Armstrong Work Phone: [facility] 09-27-2021 09:44-0400 Body temperature 97.88 [degF] Audrey Cruzy Other Phone: [facility] 09-27-2021 09:44-0400 Diastolic blood pressure 74 mm[Hg] Audrey Anthonyy Other Phone: [facility] 09-27-2021 09:44-0400 Heart rate 89 /min Audrey Hoy Other Phone: [facility] 09-27-2021 09:44-0400 Respiratory rate 18 /min Audrey Hoy Other Phone: [facility] 09-27-2021 09:44-0400 SaO2% (BldA) [Mass fraction] 94 % Audrey Armstrong Other Phone: [facility] 09-27-2021 09:44-0400 Systolic blood pressure 149 mm[Hg] Audrey Hoy Other Phone: [facility] 03-16-2021 08:34-0400 Body weight 101.86 [...] Date Encounter Type Care Provider Facility Start: 04-12-2025 ambulatory Shun MACHADO Facility : [facility] Start: 07-14-2024 ambulatory Fidel SARMIENTO [facility] Start: 04-13-2024 End: 04-13-2024 ambulatory Shun MACHADO Facility: [facility] Start: 04-13-2024 End: 04-13-2024 Patient encounter procedure Shun MACHADO [facility] Start: 03-04-2024 End: 03-04-2024 Patient encounter procedure MD Audrey Armstrong Work Phone: [facility] [address] Work Phone: Start: 03-04-2024 End: 03-04-2024 ambulatory MD Adurey Armstrong Work Phone: [facility] Work Phone: Start: 12-27-2023 Non-patient / Non-visit MD Brittani Armstrong [facility] Phone[facility] Work Phone: Start: 11-19-2023 End: 11-19-2023 Patient encounter procedure MD Audrey Armstrong Work Phone: [facility] [address] Work Phone: Start: 11-19-2023 End: 11-19-2023 ambulatory MD Audrey Armstrong Work Phone: [facility] Work Phone: Start: 08-28-2023 End: 08-28-2023 ambulatory STEFANIE KNIGHT Not Available Start: 08-26-2023 End: 08-26-2023 ambulatory PB MAY Not Available Start: 07-30-2023 End: 07-30-2023 ambulatory GENE CORTNEYY Not Available Start: 07-25-2023 End: 07-25-2023 ambulatory STEFANIE KNIGHT Not Available Start: 07-23-2023 End: 07-23-2023 ambulatory GENE HUMPHREYBLEY Not Available Start: 07-18-2023 End: 07-19-2023 ambulatory GENE MILAGROBLEY Not Available Start: 07-18-2023 End: 07-18-2023 Patient encounter procedure MD Audrey Armstrong Work Phone: [facility] [address] Work Phone: Start: 07-18-2023 End: 07-18-2023 ambulatory MD Audrey Armstrong Work Phone: [facility] Work Phone: Start: 07-16-2023 End: 07-16-2023 ambulatory GENE CORTNEYY Not Available Start: 07-09-2023 End: 07-09-2023 ambulatory STEFANIE KNIGHT Not Available Start: 04-08-2023 End: 04-08-2023 Patient encounter procedure Shun MACHADO [facility] Start: 03-12-2023 End: 03-12-2023 ambulatory ANTWAN SORIANO Facility:[facility] Start: 02-19-2023 End: 02-19-2023 ambulatory MD Audrey Armstrong Work Phone: [facility] Work Phone: Start: 02-19-2023 End: 02-19-2023 Patient encounter procedure MD Audrey Armstrong Work Phone: [facility] [address] Work Phone: Start: 10-16-2022 End: 10-16-2022 Patient encounter procedure Shun Yuki MACHADO [facility] Start: 10-15-2022 End: 10-15-2022 ambulatory MD Audrey Armstrong Work Phone: [facility] Work Phone: Start: 10-15-2022 End: 10-15-2022 Patient encounter procedure MD Audrey Armstrong Work Phone: [facility] [address] Work Phone: Start: 10-02-2022 End: 10-02-2022 Patient encounter procedure Arely LOGAN General Surgery Doreen/Biju Schultz Start: 09-11-2022 End: 09-11-[address] AUDREY ARMSTRONG . Facility:H1 Start: 09-05-2022 ambulatory JENI Jones lity:H1 Start: 08-31-2022 End: 09-01-[address] ARELY LOGAN . Facility:H1 Start: 08-27-2022 Chart Update Audrey Armstrong Work Phone: [facility]Rlxldknehqdc[facility] Work Phone: Start: 08-16-2022 End: 08-17-2022 ambulatory WADE NELSON Facility:H1 Start: 07-19-2022 End: 07-20-2022 ambulatory WADE NELSON Facility:H1 Start: 07-06-2022 End: 07-07-[address] AUDREY ARMSTRONG . Facility:H1 Start: 06-19-2022 Encounter for preprocedural laboratory examination JENI Albrecht [facility] Start: 06-07-2022 End: 06-08-[address] AUDREY ARMSTRONG . Facility:H1 Start: 06-04-2022 End: 06-05-[address] AUDREY ARMSTRONG . Facility:H1 Start: 06-04-2022 End: 06-05-2022 Encounter for preprocedural laboratory examination DR AUDREY ARMSTRONG . Facility:H1 Start: 05-31-2022 Encounter for preprocedural cardiovascular examination JENI Albrecht [facility] Start: 05-25-2022 End: 05-26-2022 ambulatory [facility] Trena [facility] Facility:H1 Start: 05-25-2022 End: 05-26-2022 Encounter for preprocedural cardiovascular examination JENI Albrecht [facility] Facility:H1 Start: 05-23-[address] AUDREY ARMSTRONG . Facili ty:H1 Start: 05-23-2022 End: 05-23-2022 ambulatory MD Audrey Armstrong Work Phone: [facility] Work Phone: Start: 05-23-2022 End: 05-23-2022 Patient encounter procedure MD Audrey Armstrong Work Phone: [facility] [address] Start: 05-02-2022 ambulatory Mr. Kenton Lawson Fa cility:[facility] Start: 05-02-2022 Office outpatient vi sit 25 minutes Audrey Armstrong Work Phone: RN-Khxozlrjdyed-Muinbhp 5FL DO Work Phone: Start: 03-30-2022 Encounter for genera l adult medical examination without abnormal findings DR AUDREY ARMSTRONG . [facility] Start: 03-28-2022 End: 03-29-[address] AUDREY ARMSTRONG . Facility:H1 Start: 03-28-2022 End: 03-29-2022 Encounter for general adult medical examination without abnormal findings DR AUDREY ARMSTRONG . Facility:H1 Start: 02-15-2022 End: 02-15-2022 Admission to same day surgery center MD Audrey Armstrong Work Phone: [facility] [place] Start: 02-14-2022 End: 02-15-2022 ambulatory JENI SAEED Facility:H1 Start: 02-13-2022 End: 02-13-2022 Patient encounter procedure MD Audrey Armstrong Work Phone: [facility] Start: 01-30-2022 End: 01-30-2022 Patient encounter procedure Shun MACHADO [facility] Start: 01-29-2022 End: 01-30-[address] AUDREY ARMSTRONG . Facility:H1 Start: 01-29-2022 ambulatory Audrey Armstrong Fac ility:[facility] Start: 01-29-2022 Office outpatient vi sit 15 minutes Audrey Armstrong Work Phone: OL-Gavetvvgjavn-Piaremd 5FL DO Work Phone: Start: 01-29-2022 ambulatory Mr. Kenton Lawson Fa cility:[id number] Start: 01-24-2022 End: 01-24-2022 Patient encounter procedure Arely LOGAN General Surgery Nill/Biju Schultz Start: 01-19-2022 End: 01-19-2022 Admission to same day surgery center MD Audrey Armstrong Work Phone: [facility] [place] Start: 01-17-2022 End: 01-17-2022 Patient encounter procedure MD Audrey Armstrong Work Phone: [facility] Start: 01-11-2022 End: 01-12-[address] SHUN MACHADO Facility:H1 Start: 01-09-2022 End: 01-09-[address] LAURY ZEPEDA Facility:H1 Start: 01-05-2022 End: 01-06-[address] AUDREY ARMSTRONG . Facility:H1 Start: 12-27-2021 End: 12-28-[address] AUDREY ARMSTRONG . Facility:H1 Start: 12-09-2021 End: 12-10-[address] AUDREY ARMSTRONG . Facility:H1 Start: 11-09-2021 Chart Update Audrey Kassandra Armstrong Work Phone: XF-Ykkboglpgqjq-Xiftji 210 Work Phone: Start: 11-08-2021 Postop follow up vis it related to original px Audrey Armstrong Work Phone: GA-Ouqmcwteqsew-Drropxp 5FL DO Work Phone: Start: 11-08-2021 POV, Provider: Kenton Lawson, Status: Pen, Time: 11:00 AM Audrey Armstrong Work Phone: TH-Efrtycafspwv-Crrqru 210 Work Phone: Start: 11-08-2021 ambulatory Audrey Armstrong Fac ility:[facility] Start: 11-07-2021 AUDIT Audrey Armstrong Work Phone: SR-Lopqrumubabw-Pgddgd 210 Work Phone: Start: 09-26-2021 End: 09-27-2021 [facility] and management [id number] Start: 09-19-2021 AUDIT Audrey Armstrong Work Phone: RH-Mduhketpclsxvh-Vsr for Perioperative Med Work Phone: Start: 09-19-2021 ambulatory Audrey Rivera ility:[facility] Start: 09-19-2021 Encounter for blood typing Dr. SAL RICHARDSON [facility] Start: 09-19-2021 Encounter for preprocedural laboratory examination Dr. SAL RICHARDSON [facility] Start: 08-23-2021 Office outpatient vi sit 40 minutes Audrey Armstrong Work Phone: ZU-Wvtecmsihotw-Jsilwmd ng-[facility]ist Work Phone: Start: 08-23-2021 ambulatory Audrey Armstrong Fac ility:[facility] Start: 08-03-2021 Office outpatient vi sit 25 minutes Audrey Armstrong Work Phone: CR-Nzglicxqomfe-Wsxhyz 210 Work Phone: Start: 08-03-2021 ambulatory Referral Self Facility: [id number] Start: 06-21-2021 End: 06-21-2021 ambulatory Audrey Armstrong Facility:[facility] Start: 06-02-2021 AUDIT No PCP None [facility] for Perioperative Med Work Phone: Start: 06-02-[address] SAL RICHARDSON Facility:[facility] Start: 06-02-[address] SAL RICHARDSON Facility:[facility] Start: 06-02-2021 Encounter for other preprocedural examination Dr. SAL RICHARDSON [facility] Start: 06-02-2021 Encounter for preprocedural cardiovascular examination Dr. SAL RICHARDSON [facility] Start: 05-03-2021 Office outpatient vi sit 40 minutes No PCP None DP-Rkhxmbmiutok-Hzqmhbi ng-T[facility]ist Work Phone: Start: 03-16-2021 NPV, Provider: Nazario Holloway, Status: Pen, Time: 8:30 AM No PCP None [facility] Work Phone: Start: 03-16-2021 Office outpatient ne w 30 minutes No PCP None [facility] Work Phone: Start: 03-16-2021 Patient encounter procedure No PCP None [facility] Work Phone: Start: 03-13-2021 Office consultation new/estab patient 80 min No PCP None [facility] Work Phone: Start: 03-10-2021 Chart Update No PCP None [facility] [address] Work Phone: Start: 03-06-2021 Telephone encounter No PCP None [facility] Work Phone: Start: 02-12-2021 Chart Update No PCP None [facility] [address] Work Phone: Start: 02-09-2021 Office outpatient ne w 45 minutes No PCP None QZ-Xmgesajzctbn-Vvkfwi 210 Work Phone: Start: 02-08-2021 AUDIT No PCP None [facility] [address] Work Phone: Procedures Date Procedure Procedure Detail Performing Clinician Start: 06-07-2022 Fusion of Right Tars al Joint with Synthetic Substitute, Open Approach JENI SAEED Start: 06-07-2022 Transfer Right Foot Tendon, Open Approach JENI SAEED Start: 03-28-2022 PSA screening JENI CONNOR Comment on above: Performed By: #### P [facility] #### [facility] [address] [place] [address] Dr. Carolyn King Start: 02-15-2022 Cystoscopy MD [...] above: Performed By: #### T +S #### [facility] [address] [place] [address] Start: 06-02-[address] ASIA RICHARDSON Comment on above: Performed By: #### U A #### [facility] [id number] 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 Start: 07-18-[address] [facility] Start: 02-19-[address] [facility] Start: 10-15-[address] [facility] Start: 09-26-2022 FUV, Provider: Kenton Lawson, Status: Pen, Time: 9:30 AM FUV, Provider: Kenton Lawson, Status: Pen, Time: 9:30 AM HO-Lslibhrxpkdh-Lyxyedz 5FL DO Work Phone: Start: 05-23-2022 Hemolytic complement CH50 level [facility] Start: 05-02-2022 FUV, Provider: Kenton Lawson, Status: Pen, Time: 9:00 AM FUV, Provider: Kenton Lwason, Status: Pen, Time: 9:00 AM ZB-Efffkwtvbgkq-Yjphwzi 5FL DO Work Phone: Start: 02-15-2022 End: 02-15-2022 [facility] Work Phone: Start: 02-15-2022 Cystoscopy OR Cysto/Retro/Stent/Ston e/Holmium Laser (Right) [facility] Start: 02-15-2022 Diagnostic radiograp hy of abdomen XR KUB [facility] Start: 02-15-2022 End: 02-15-2022 Admission to same day surgery center Departed Surgical Day Care [facility] [place] Start: 02-13-2022 End: 02-13-2022 Patient encounter procedure Departed Clinical [facility] Dqn-Tcb-Uwcipulb Testing Start: 01-19-2022 End: 01-19-2022 [facility] Work Phone: Start: 01-15-2022 FUV, Provider: Kenton Lawson, Status: Pen, Time: 10:00 AM FUV, Provider: Kenton Lawson, Status: Pen, Time: 10:00 AM OA-Jtjggyocwmum-Fcxghva 5FL DO Work Phone: Start: 11-08-2021 Patient encounter procedure [facility] Start: 09-27-2021 End: 09-28-2022 Sodium Chloride 0.9% Injectable Flush Peripheral Line ; via Peripheral LineVolume = 10 mL IntraVenous Flush Every 8 Hours and as Needed Start: 27-Sep-2021 End: 27-Sep-2022 Ordered: 27-Sep-2021 Timothy Steinberg [facility] Start: 09-27-2021 End: 09-28-2022 oxyCODONE Immediate Release 10 mg Oral Tablet Every 4 Hours ; Tablet (OXYIR, ROXICODONE)DOSE = 10 mg Oral Every 4 Hours, PRN Pain - Severe (7-10) Start: 27-Sep-2021 End: 27-Sep-2022 Ordered: 27-Sep-2021 Timothy Steinberg [facility] Start: 09-26-2021 End: 09-27-2022 [facility] Comment on above: [employer] Infusion an d notify H.O. immediately Start: 09-26-2021 [facility], Provider: Sal Richardson, Status: Pen, Time: 7:30 AM [facility], Provider: Sal Richardson, Status: Pen, Time: 7:30 AM IC-Wpedvlxegrwpov-Scm for Perioperative Med Work Phone: Start: 08-30-2021 FUV, Provider: Sal Richardson, Status: Pen, Time: 11:15 AM FUV, Provider: Sal Richardson, Status: Pen, Time: 11:15 AM QF-Urrbcymscnwr-Konyrh 210 Work Phone: Start: 08-30-2021 FUV, Provider: Sal Richardson, Status: Pen, Time: 11:00 AM FUV, Provider: Sal Richardson, Status: Pen, Time: 11:00 AM WK-Brzdmvusjstj-Hfuevy 210 Work Phone: Start: 06-09-2021 [facility], Provider: Sal Richardson, Status: Pen, Time: 7:30 AM [facility], Provider: Sal Richardson, Status: Pen, Time: 7:30 AM EM-Ontynljxnfdyar-Fuk for Perioperative Med Work Phone: Start: 03-22-2021 [facility], Provider: Nazario Holloway, Status: Pen, Time: 9:40 AM [facility], Provider: Nazario Holloway, Status: Pen, Time: 9:40 AM [facility] Work Phone: Start: 03-13-2021 FUV, Provider: Sal Richardson, Status: Pen, Time: 2:15 PM FUV, Provider: Sal Richardson, Status: Pen, Time: 2:15 PM TI-Tanvepydltxv-Nffkrv 210 Work Phone: Complement C3 [Mass/volume] in Serum or Plasma [facility] Work Phone: Complement C3 [Mass/volume] in Serum or Plasma [facility] Complement C3 [Mass/volume] in Serum or Plasma [facility] Complement C3 [Mass/volume] in Serum or Plasma [facility] Complement C3 [Mass/volume] in Serum or Plasma [facility] Complement C4 [Mass/volume] in Serum or Plasma [facility] Work Phone: Complement C4 [Mass/volume] in Serum or Plasma [facility] Complement C4 [Mass/volume] in Serum or Plasma [facility] Complement C4 [Mass/volume] in Serum or Plasma [facility] Complement C4 [Mass/volume] in Serum or Plasma [facility] Hemolytic complement CH50 level [facility] Work Phone: Patient referral [facility] Work Phone: Immunizations Immunization Date Immunization Notes Care Provider Fa cility 03-27-2022 influenza virus vaccine, unspecified formulation Arely DOREEN [facility] 11-21-2021 SARS-CoV-2 mRNA (kxcdgsttgdi-wqgs-lfhc ose) vaccine Arely KRISHNAMURTHYKobe [facility] 09-22-2021 SARS-CoV-2 (COVID-19 ) mRNA BNT-162b2 vax Arely KRISHNAMURTHYL [facility] 06-26-2021 Pfizer-BioNTech COVID-19 Vacc 30 MCG/0.3ML Intramuscular Suspension Audrey Armstrong Work Phone: [facility] 05-01-2021 influenza virus vaccine, unspecified formulation Shun CHRIS [facility] 05-01-2021 Influenza, injectabl e, Madin Charissa Canine Kidney, preservative free, quadrivalent Audrey Armstrong Work Phone: XM-Yuppqohdujjh-Cs sman 210 Work Phone: 10-06-2020 Pfizer-BioNTech COVID-19 Vacc 30 MCG/0.3ML Intramuscular Suspension No PCP None [facility] 09-13-2020 Pfizer-BioNTech COVID-19 Vacc 30 MCG/0.3ML Intramuscular Suspension No PCP None [facility] 06-24-2020 SARS-CoV-2 (COVID-19 ) mRNA BNT-162b2 vax Arely KRISHNAMURTHYKobe [facility] 05-04-2020 influenza virus vaccine, unspecified formulation Shun MACHADO [facility] 05-04-2020 Influenza, injectabl e, Madin Charissa Canine Kidney, preservative free, quadrivalent No PCP None QA-Vndjfmddpmeb-Aw sman [address] Work Phone: 05-04-2020 pneumococcal conjuga te vaccine, 13 valent No PCP None [facility] 04-06-2020 influenza virus vaccine, unspecified formulation Shun MACHADO [facility] 04-06-2020 influenza, seasonal, injectable No PCP None QM-Ibmugnbtonvp-Fy sman 210 Work Phone: 10-25-2011 hepatitis A vaccine, adult dosage No PCP None [facility] 10-25-2011 hepatitis B vaccine, pediatric or pediatric/adolescent dosage No PCP None [facility] 03-30-2011 hepatitis A vaccine, adult dosage No PCP None [facility] 03-30-2011 hepatitis B vaccine, pediatric or pediatric/adolescent dosage No PCP None [facility] 02-15-2011 hepatitis B vaccine, pediatric or pediatric/adolescent dosage No PCP None [facility] 01-20-1998 hepatitis B vaccine, adult dosage No PCP None [facility] 02-24-1997 hepatitis B vaccine, adult dosage No PCP None [facility] 11-11-1996 hepatitis B vaccine, adult dosage No PCP None [facility] 11-02-1996 TD(adult) unspecifie d formulation; Translations: [Td(adult) unspecified formulation] No PCP None [facility] NEGATED: Highlighted row has not occurred!04-15-2019 influenza virus vaccine, unspecified formulation Arely LOGAN [facility] [place] Payers Date Payer Category Payer Self-pay [id number] 2023 Unknown [id number] 2022 Medicare [id number] 1960 Unknown [id number] 2.16. 840.1.838509.3.579.2.356 1961 Unknown [id number] 2.16. 840.1.075594.3.579.2.356 1961 Unknown [id number] 2.16. 840.1.397668.3.579.2.356 1961 Unknown [id number] 2.16. 840.1.991724.3.579.2.356 1961 Unknown [id number] 2.16. 840.1.781431.3.579.2.356 1961 Unknown [id number] 2.16. 840.1.975295.3.579.2.356 1961 Unknown [id number] 2.16. 840.1.721779.3.579.2.356 1961 Unknown [id number] 2.16. 840.1.034155.3.579.2.356 1961 Unknown [id number] 2.16. 840.1.015223.3.579.2.356 1961 Unknown [id number] 2.16. 840.1.979786.3.579.2.356 1961 Unknown [id number] 2.16. 840.1.886825.3.579.2.356 1961 Unknown [id number] 2.16. 840.1.755279.3.579.2.356 1961 Unknown [id number] 2.16. 840.1.956621.3.579.2.356 1961 Unknown [id number] 2.16. 840.1.139071.3.579.2.356 1961 Unknown [id number] 2.16.84 0.1.882885.3.579.2.593 1961 Unknown [id number] 2.16.84 0.1.106162.3.579.2.593 1961 Unknown [id number] 2.16.84 0.1.294728.3.579.2.593 1961 Unknown [id number] 2.16.84 0.1.737364.3.579.2.593 1961 Unknown [id number] 2.16.84 0.1.378036.3.579.2.593 1961 Unknown [id number] 2.16.84 0.1.798421.3.579.2.593 1961 Unknown [id number] 2.16.84 0.1.606370.3.579.2.593 1961 Unknown [id number] 2.16.84 0.1.969522.3.579.2.593 1961 Unknown [id number] 2.16.84 0.1.837066.3.579.2.593 1961 Unknown [id number] 2.16.84 0.1.903256.3.579.2.593 1961 Unknown [id number] 2.16.84 0.1.260848.3.579.2.593 1961 Unknown [id number] 2.16.84 0.1.216196.3.579.2.593 1961 Unknown [id number] 2.16.84 0.1.827003.3.579.2.593 1961 Unknown [id number] 2.16.84 0.1.760541.3.579.2.593 1961 Unknown [id number] 2.16.84 0.1.252710.3.579.2.593 1961 Unknown [id number] 2.16.84 0.1.812926.3.579.2.593 1961 Unknown [id number] 2.16.84 0.1.107199.3.579.2.593 1961 Unknown [id number] 2.16.84 0.1.291454.3.579.2.593 1961 Unknown [id number] 2.16.84 0.1.817439.3.579.2.593 1961 Unknown [id number] 2.16.84 0.1.691912.3.579.2.1259 1961 Unknown [id number] 2.16.84 0.1.942051.3.579.2.1259 1961 Unknown [id number] 2.16.84 0.1.090657.3.579.2.1259 1961 Unknown [id number] 2.16.84 0.1.933767.3.579.2.1259 1961 Unknown [id number] 2.16.84 0.1.689869.3.579.2.1259 1961 Unknown [id number] 2.16.84 0.1.768224.3.579.2.1259 1961 Unknown [id number] 2.16.84 0.1.654320.3.579.2.1259 1961 Unknown [id number] 2.16.84 0.1.259037.3.579.2.1259 1961 Unknown [id number] 2.16.8 40.1.837311.3.579.2.727 1961 Unknown [id number] 2.16.8 40.1.388528.3.579.2.727 1961 Unknown [id number] 2.16.84 0.1.665508.3.579.2.1314 1959 Unknown [id number] 1959 Unknown [id number] Unknown Unknown O [id number] Unknown [id number] Unknown [id number] 2.16.8 40.1.662541.3.579.2.531 Unknown [id number] 2.16.8 40.1.008214.3.579.2.531 Unknown [id number] 2.16.8 40.1.819039.3.579.2.531 Social History Date Type Detail Facility [facility] Tobacco smoking consumption unknown [facility] Start: 01-24-2022 End: 04-13-2024 Tobacco smoking status Never smoked tobacco (finding) [facility] Work Phone: Tobacco smoking status Never [facility] [place] Sex Assigned At Male Genera l Surgery Antoine Start: 1960 Sex Assigned At Male F [facility] Medical Equipment Procedure Code Equipment Code Equipment Origin al Text Equipment Identifier Dates Cystoscopy, with ureteral calculus manipulation and stent placement Polymeric ureteral stent [id number] [facility] Start: 02-15-2022 Cystoscopy, with ureteral calculus manipulation and stent placement Polymeric ureteral stent ()[id number] FDA Start: 01-19-2022 Goals Date Patient Goal Desired Activity /State Functional Status Date Assessment Result Facility 04-13-2024 Functional Status N/A [facility] 04-08-2023 Functional Status N/A [facility] 10-16-2022 Functional Status N/A [facility] 10-02-2022 Functional Status N/A [facility] Functional Status N/A [facility] 01-24-2022 Functional Status N/A General Thacker gabrielle Schultz Functional observable [facility] Mental Status Date Assessment Result Facility 09-26-2021 Cognitive functions 27-Sep-19 2212:26 [facility] Clinical Notes 10-31-2020 to 04-13-2024 RadiologyRadiology<item><item><item><item><item><item><item> Note Date & Type Note Facility 04-13-2024 Hospital Discharge instructions Patient Education 04/13/2024 10:06:26 Dietary Guidelines to Help Prevent Kidney Stones Dietary Guidelines to Help Prevent Kidney Stones Kidney stones are deposits of minerals and salts that form inside your kidneys. Your risk of developing kidney stones may be greater depending on your diet, your lifestyle, the medicines you take, and whether you have certain medical conditions. Most people can lower their risks of developing kidney stones by following these dietary guidelines. Your dietitian may give you more specific [...] include: ?8 oz (237 mL) of milk, nlmvnfi-ouulkskaqqmm-ydwbs milk, and calcium-fortifiedfruit juice. Calcium-fortified means that [...] table and allow each person to add their own salt to taste. Use vegetable protein, [...] fish, or seafood. ?When you prepare animal proteins, cut pieces into small portion sizes. For [...] ?Have two kinds of vegetables at dinner. You may be told to limit foods that are high in a substance called oxalate. These include: ?Spinach (cooked), rhubarb, beets, sweet potatoes, and [place] chard. ?Peanuts. ?Potato chips, jordanian fries, and baked potatoes with skin on. ?Nuts and nut products. ?Chocolate. If you regularly take a diuretic medicine, make sure to eat at least 1 or 2 servings of fruits or vegetables that are high in potassium each day. These include: ?Avocado. ?Banana. ?[place], prune, carrot, or tomato juice. ?Baked potato. ?Cabbage. ?Beans and split peas. Lifestyle Drink enough fluid to keep your urine pale yellow. This is the most important thing you can do. Spread your fluid intake throughout the day. If you drink alcohol: ?Limit how much you have to: ?0 1 drink a day for women who are not . ?0 2 drinks a day for men. ?Know how much alcohol is in your drink. [...] of your kidney stones, you may be told: ?Do not take high-dose supplements of vitamin C (1,000 mg a day or more). ?To take a calcium supplement. ?To take a daily probiotic supplement. ?To take other supplements such as magnesium, fish oil, or vitamin B6. Take xcns-nmg-bmyeneh and prescription medicines only as told by [...] sausages, meat loaves, and hot dogs. Dairy Cheeses. Beverages Regular soft drinks. Regular vegetable juice. Seasonings and condiments Seasoning blends with salt. Salad dressings. Soy sauce. Ketchup. Barbecue sauce. Other foods Canned soups. Canned pasta sauce. Casseroles. Pizza. Lasagna. Frozen meals. Potato chips. Citizen [place] fries. The items listed above may not [...] with your health care provider. Document Revised: 09/20/2022 Document Reviewed: 09/20/2022 [employer] Patient Education 2023 [employer] Follow Up Care 04/08/2023 11:14:40 With:CHRIS RIVERA, Shun Mirza, URL Address: [facility] [place] [id number]- When: Unknown [facility] 04-13-2024 Note Patient Education Nephrology Dietary Guidelines to Help Prevent Kidney Stones Kidney stones are deposits of minerals and salts that form inside your kidneys. Your risk of developing kidney stones may be greater depending on your diet, your lifestyle, the medicines you take, and whether you have certain medical conditions. Most people can lower their risks of developing kidney stones by following these dietary guidelines. Your dietitian may give you more specific [...] ? 8 oz (237 mL) of milk, kugspbv-jlrhwmgrklfu-zfobv milk, and calcium-fortifiedfruit juice. Calcium-fortified means that [...] table and allow each person to add their own salt to taste. ? Use vegetable [...] or seafood. ? When you prepare animal proteins, cut pieces into small portion sizes. For [...] two kinds of vegetables at dinner. ? You may be told to limit foods that are high in a substance called oxalate. These include: ? Spinach (cooked), rhubarb, beets, sweet potatoes, and [place] chard. ? Peanuts. ? Potato chips, jordanian fries, and baked potatoes with skin on. ? Nuts and nut products. ? Chocolate. ? If you regularly take a diuretic medicine, make sure to eat at least 1 or 2 servings of fruits or vegetables that are high in potassium each day. These include: ? Avocado. ? Banana. ? [place], prune, carrot, or tomato juice. ? Baked potato. ? Cabbage. ? Beans and split peas. Lifestyle ? Drink enough fluid to keep your urine pale yellow. This is the most important thing you can do. Spread your fluid intake throughout the day. ? If you drink alcohol: ? Limit how much you have to: ? 0?1 drink a day for women who are not . ? 0?2 drinks a day for men. ? Know how much alcohol is in your drink. [...] of your kidney stones, you may be told: ? Do not take high-dose supplements of vitamin C (1,000 mg a day or more). ? To take a calcium supplement. ? To take a daily probiotic supplement. ? To take other supplements such as magnesium, fish oil, or vitamin B6. ? Take ugqb-juh-xhtrfdo and prescription medicines only as told by your health care provider. These include suppleme (more content not included)... [facility] 04-08-2023 Hospital Discharge instructions Patient Education 04/08/2023 [...] include: ?8 oz (237 mL) of milk, nuxtoav-hsvfazfzmdrt-wmurw milk, and calcium-fortifiedfruit juice. Calcium-fortified means that [...] ?Spinach (cooked), rhubarb, beets, sweet potatoes, and [place] chard. ?Peanuts. ?Potato chips, jordanian fries, and baked potatoes with skin on. ?Nuts and nut products. ?Chocolate. If you regularly take a diuretic medicine, make sure to eat at least 1 or 2 servings of fruits or vegetables that are high in potassium each day. These include: ?Avocado. ?Banana. ?[place], prune, carrot, or tomato juice. ?Baked potato. [...] magnesium, fish oil, or vitamin B6. Take plyp-lrz-lseaikh and prescription medicines only as told by [...] Casseroles. Pizza. Lasagna. Frozen meals. Potato chips. Citizen [place] fries. The items listed above may not [...] provider. Document Revised: 02/19/2022 Document Reviewed: 02/19/2022 [employer] Patient Education 2022 [employer] Follow Up Care 10/16/2022 15:04:55 With:CHRIS RIVERA, Shun Mirza, URL Address: [address] [place] [address] [place] [address]- When: Unknown [facility] 03-12-2023 Note HNO ID: [id number] Author: Antwan Soriano MD Service: ? Author [...] next visit: No PCP: Audrey Armstrong MD [facility] [id number] FELLOW / RESIDENT: No fellow or resident assisted in this office visit. Antwan Soriano MD [facility] 10-16-2022 Hospital Discharge instructions Patient [...] include: ?8 oz (237 mL) of milk, ezizwii-apxnbodvmweo-zatsf milk, and calcium-fortifiedfruit juice. Calcium-fortified means that [...] ?Spinach (cooked), rhubarb, beets, sweet potatoes, and [place] chard. ?Peanuts. ?Potato chips, jordanian fries, and baked potatoes with skin on. ?Nuts and nut products. ?Chocolate. If you regularly take a diuretic medicine, make sure to eat at least 1 or 2 servings of fruits or vegetables that are high in potassium each day. These include: ?Avocado. ?Banana. ?[place], prune, carrot, or tomato juice. ?Baked potato. [...] magnesium, fish oil, or vitamin B6. Take tipw-bvo-xrlrhli and prescription medicines only as told by [...] Casseroles. Pizza. Lasagna. Frozen meals. Potato chips. Citizen [place] fries. The items listed above may not [...] provider. Document Revised: 02/19/2022 Document Reviewed: 02/19/2022 [employer] Patient Education 2022 [employer] Follow Up Care 02/19/2022 10:35:10 With:CHRIS RIVERA, Shun Mirza, URL Address: [facility] [address] [place], [place] [address]- When: Unknown [facility] 08-16-2022 Note PROCEDURE: XR FOOT R T [...] authenticated by: LAURY ZEPEDA Date: 2022-08-16 18:[address] [facility] 07-19-2022 Note PROCEDURE: XR FOOT R [...] authenticated by: LAURY ZEPEDA Date: 2022-07-19 12:[address] [facility] 07-06-2022 Note PROCEDURE: XR FOOT R [...] by: LAURY ZEPEDA Date: 2022-07-06 15:41 [facility] 06-07-2022 Note PROCEDURE: XR ANKLE [...] by: BANDAR SAENZ Date: 2022-06-07 14:32 [facility] 06-07-2022 Note PROCEDURE: XR ANKLE [...] authenticated by: BANDAR SAENZ Date: 2022-06-07 14:[address] [facility] 01-30-2022 Hospital Discharge instructions Patient Education [...] include: ?Spinach. ?Rhubarb. ?Beets. ?Potato chips and jordanian fries. ?Nuts. If you regularly take a diuretic medicine, make sure to eat at least 1 2 fruits or vegetables high in potassium each day. These include: ?Avocado. ?Banana. ?[place], prune, carrot, or tomato juice. ?Baked potato. [...] Casseroles. Pizza. Lasagna. Frozen meals. Potato chips. Citizen [place] fries. Summary You can reduce your risk [...] 10/05/2011 Document Revised: 09/30/2019 Document Reviewed: 05/21/2017 [employer] Patient Education 2020 [employer] Follow Up Care 01/24/2022 12:02:31 With:CHRIS RIVERA, Shun Mirza, URL Address: [address] [facility] [address] [place], [place] [address]- When: Unknown [facility] 09-27-2021 Note Send Summary: Discharge Summary Providers: Provider RoleProvider Name Sal Perez Nicholas PrimaryHoy, Douglas M Note Recipients: Audrey Armstrong MD - [id number] [] Discharge: Summary: Admission Date: .26-Sep-2021 06:01:00 [...] floor. Patient was initially started on dilaudid [employer] x24 hours and then transitioned to an [...] HAVE ANTONIO REMOVED IN 3 WKS. AT [facility] [id number] [facility] ON 10/18/2021 AT 0930 WITH KENTON SANTIAGO. REHAB FACILITIES OR HOME CARE MAY REMOVE ANTONIO OR SUTURES. Wound Site: BACK (Lumbar Spine) Wound Type: surgical incision Change Dressing: daily Cleanse With: soap and water Cover With: abdominal dressing Tape With: paper tape Instructions: no lotions, creams, or tub soaks Other Instructions: PLEASE HAVE ANTONIO REMOVED IN 3 WKS. AT [facility] [id number] [place] [address]. [facility] 5TH [facility] ON 10/18/2021 AT 0930 WITH [...] to Schedule in: 6 weeks, PLEASE CALL [phone] TO SCHEDULE YOUR APPOINTMENT FOR 5-6 WEEKS FOLLOWING YOUR SURGERY. Location: [facility] [address] [facility] 5TH [place] [address] [place] [address]/ [facility] [address], Phone Number: Office: (September,./[place]) - [phone] Discharge Medications: Home Medication NIFEdipine 30 mg [...] tab(s) orally every (more content not included)... [facility] 09-27-2021 Note Rehab: Info: Mode of Treatmentoccupational therapy; co-evaluation with PT for pt safety and to optimize pt's therapeutic potential Time IN10:00 Time OUT10:27 Total Treatment [id number] Patient in ... at end of sessionchair; alarm on Communicated with ... at end of sessionbedside nurse Patient Effortexcellent Symptoms Noted During/After Treatmentnone Patient Profile Reviewedyes Onset of Illness/Injury or Date of [id number] Reason for ReferralXLIF L3/4, 4/5;2. Navigated percutaneous [...] WFL Mobility/Tone: Bed Mobility Assessment/Interventionssupine to sit Yiejkt-gp-Uvb Dodge (Bed Mobility)standby assist; verbal cues Assistive Device (Bed Mobility)bed rails Comment, Bed MobilityVia log rolling technique Transfer Assessment/Interventionssit to stand transfer; stand to sit transfer Sit-Stand Dodge (Transfers)standby assist; verbal cues Sit-Stand Assistive Device (Transfers)no AD Stand-Sit Dodge (Transfers)standby assist; verbal cues Stand-Sit Assistive Device (Transfers)no AD Safety Issues Impacting Function (Mobility)insight into deficits/self awareness Impairments Impacting Function (Mobility)balance; pain ActivityPt completed functional household distance with SBA for safety (pt declined use of device) ADL: BADL Assessment/Interventionlower body dressing; grooming; toileting Dodge Level (Lower Body Dressing)pants/bottoms; moderate assist (50% patient effort) Position (Lower Body Dressing)edge-of-bed sitting Dodge Level (Grooming)supervision Position (Grooming)standing Comment (Grooming)Standing oral care at sink Dodge Level (Toileting)supervision Position (Toileting)standing Motor: Sitting, Static (Balance)good balance Sitting, Dynamic (Balance)good balance Ghp-oo-Voynw (Balance)fair balance Standing, Static (Balance)fair balance Standing, [...] Total Score17 Short Term Goals: Transfer: Established [id number] Transfer: Transfer Type Nrjnwpq-ke-olobl/fgkll-qa-lwl; (more content not included)... [facility] 09-26-2021 Note Post Operative Note: PreOp Diagnosis: Lumbar stenosis, spondylolisthesis L3-5 Post-Procedure Diagnosis: Lumbar stenosis, spondylolisthesis L3-5 Procedure: ALIF via extreme lateral approach L3/4, L4/5 with cage x 2 PSF with instrumentation L3-5 Surgeon: Dr. Richardson Resident/Fellow/Other Brick Grader: Renny Steinberg Estimated Blood Loss (mL): 150 [...] Last Updated: 04-Oct-2021 15:17 by Sal Richardson) [facility] 09-26-2021 History of Present illness Narrative Jay is a pleasant 62-year-old yphsh-wppc-krusjudz male who presents today with his for [...] not corrected for spelling or grammatical errors. PH-Oxnojawvkziv-Zugtjbh 5FL DO Work Phone: 09-26-2021 Note History [...] the note. I personally evaluated the patient [id number] Electronic Signatures: Sal Richardson) (Signed 29-Sep-2021 11:39) Authored: Note Completion Co-Signer: History of Present Illness, Allergies, Home Medication Review, Impression/Procedure, ERAS, Physical Exam, Consent, Note Completion Timothy Steinberg (Resident)) (Signed 26-Sep-2021 05:59) Authored: History of Present Illness, Allergies, Home Medication Review, Impression/Procedure, ERAS, Physical Exam, Consent, Note Completion Last Updated: 29-Sep-2021 11:39 by Sal Richardson) [facility] 08-25-2021 Reason for referral (narrative) Reason for Referral: XLIF L3/4, 4/5;2. Navigated percutaneous PSIF L3-5 [facility] 06-21-2021 Note PROCEDURE DETAILS Preoperative Diagnosis: cervical stenosis, HNP with myelopathy C5-7 Postoperative Diagnosis: cervical stenosis, HNP with myelopathy C5-7 Surgeon: Dr. Richardson Resident/Fellow/Other Brick Grader: Skip/ Katalina Procedure: anterior cervical discectomy/ decompression, [...] Last Updated: 27-Jun-2021 14:14 by Sal Richardson) [facility] 06-21-2021 Note History & Physical [...] the note. I personally evaluated the patient [id number] Electronic Signatures: Sal Richardson) (Signed 27-Jun-2021 13:45) Authored: Note Completion Co-Signer: History & Physical Reviewed, ERAS, Consent, Note Completion Cheikh August (Resident)) (Signed 21-Jun-2021 06:23) Authored: History & Physical Reviewed, ERAS, Consent, Note Completion Last Updated: 27-Jun-2021 13:45 by Sal Richardson) [facility] 12-22-2020 History of Present illness [...] not corrected for spelling or grammatical errors. FR-Ninyssbuymsu-Vjmkti 210 Work Phone: 10-31-2020 History of Present illness Narrative 60 yr old male with back pain. 10/31 [facility] Work Phone: 10-31-2020 History of Present [...] foot surgeries and total knee replacement. [facility] Work Phone: Evaluation + Plan note Future Appointments Appointment Date:01/30/2022 09:15:00 AM Scheduled Provider:Shun MACHADO MD Location:[facility] [place] Appointment Type:URO Office Visit Appointment Date:07/31/2022 02:00:00 PM Scheduled Provider:Arely LOGAN MD Location:[facility] Appointment Type:[facility] 15 General Surgery [place] Evaluation + Plan note Future Appointments Appointment Date:07/31/2022 02:00:00 PM Scheduled Provider:Arely LOGAN MD Location:[facility] Appointment Type:[place] [address] [facility] Evaluation + Plan note Future Appointments Appointment Date:10/16/2022 02:15:00 PM Scheduled Provider:Shun MACHADO MD Location:[facility] Appointment Type:URO Office Visit Future Scheduled TestsXR Abdomen 1 View 02/19/22 General Surgery [place] Evaluation + Plan note Future Appointments Appointment Date:02/22/2023 10:45:00 AM Scheduled Provider:Shun MACHADO MD Location:[facility] Appointment Type:URO Office Visit Future Scheduled TestsXR Abdomen 1 View 02/19/22 [facility] Evaluation + Plan note Future Appointments Appointment Date:04/13/2024 09:15:00 AM Scheduled Provider:Shun MACHADO MD Location:[facility] Appointment Type:URO Office Visit [facility] Evaluation + Plan note Future Appointments Appointment Date:04/12/2025 08:15:00 AM Scheduled Provider:Shun MACHADO MD Location:[facility] Appointment Type:URO Office Visit [facility] Evaluation note Neurological: alert and oriented [id number]: Spine Exam:Dressings CDINo bruising, swelling, or erythemaL1: [...] appearing, no acute distress resting in bed [facility] Evaluation note No assessment information availa [facility] Work Phone: History of Present [...] not corrected for spelling or grammatical errors. UK-Hochrfbyisbv-Jiphbzd 5FL DO Work Phone: Hospital course Narrative [...] HAVE ANTONIO REMOVED IN 3 WKS. AT [facility] [address] [facility] 5TH FLOOR ON 10/18/2021 AT 0930 WITH KENTON SANTIAGO.REHAB FACILITIES OR HOME CARE MAY REMOVE ANTONIO OR SUTURES.Wound Care 2:Wound Site: BACK (Lumbar Spine)Wound Type: surgical incisionChange Dressing: dailyCleanse With: soap and waterCover With: abdominal dressingTape With: paper tapeInstructions: no lotions, creams, or tub soaksOther Instructions: PLEASE HAVE ANTONIO REMOVED IN 3 WKS. AT [facility] [address] [facility] 5TH FLOOR ON 10/18/2021 AT 0930 WITH [...] to Schedule in: 6 weeks, PLEASE CALL [phone] TO SCHEDULE YOUR APPOINTMENT FOR 5-6 WEEKS FOLLOWING YOUR SURGERY.Location: [facility] [address] [facility] 5TH FLOOR [place] [address] [facility]/ [facility] [address], [phone] Number: Office: (September,./[place]) - [phone]: Please Call Emmie Gallagher RN at [phone] For Any Post-Op Questions [facility] Hospital Discharge instructions No data available for this section General Surgery [place] Progress note No data available for this [...] weeks. He lives far away, in the [facility]. If he gets better with the injections, perhaps we can watch vjed-dzi-agl and this is obviously what we are [...] weeks. He lives [place] away, in the [place] area. If he gets better with the injections, perhaps we can watch tllw-ndh-iqb and this is obviously what we are [...] spine [facility] 04/12/2021 [facility]. This shows [...] section and content) DATE CREATED AUTHOR 01/14/2021 [facility] DATE CREATED AUTHOR AUTHOR'S ORGANIZ ATION 03/11/2021 [facility] DATE CREATED AUTHOR AUTHOR'S ORGANIZ ATION 08/06/2021 [facility] DATE CREATED AUTHOR AUTHOR'S ORGANIZ ATION 05/03/2022 [employer] DATE CREATED AUTHOR AUTHOR'S ORGANIZ ATION 05/05/2022 [facility] DATE CREATED AUTHOR AUTHOR'S ORGANIZ ATION 11/30/2022 [facility] DATE CREATED AUTHOR AUTHOR'S ORGANIZ ATION 03/14/2023 [facility] DATE CREATED AUTHOR AUTHOR'S ORGANIZ ATION 08/28/2023 [facility] DATE CREATED AUTHOR AUTHOR'S ORGANIZ ATION 03/17/2024 [facility] DATE CREATED AUTHOR AUTHOR'S ORGANIZ ATION 04/15/2024 Reji Velazquez [facility] DATE CREATED AUTHOR AUTHOR'S ORGANIZ ATION 07/16/2024 [facility] <item> Privacy Markings (unrecogniz ed section and [...] BE BASED ON THE PRIMARY CLINICAL RECORDS. [employer] provides no warranty or guarantee of the accuracy or completeness of information in this document.
== END 2024-07-23 09:39 | disposition home or self-care (01) ==
LOC: MRI 09:38
PROVIDERS: PCP Family Medicine; Visit Provider Physician Assistant
DX: M25.511 Pain in right shoulder (principal); M19.011 Primary osteoarthritis, right shoulder
CPT/HCPCS: 73221

== ENCOUNTER 2024-08-19 08:28 | Outpatient (OUT) | payer MEDICARE, SELFPAY ==
--- NOTE | 2024-08-19 08:37 | XR_ITS ---
The [address] [address] Patient Name: RG SIMEON MRN: [id number] date: 1960 Sex: M Assigned Patient Location: [facility] Current Patient Location: [facility] Accession/Order Number: [id number] Exam Date: 08/19/2024 10:48 Report Date: 08/19/2024 11:00 At the request of: JENI SAEED DPM Procedure: XR ankle RT min 3V BILATERAL FEET - 3 views each COMPARISON: Right foot 06/10/2024 and left foot 03/26/2023 CLINICAL DATA: Bilateral foot pain. Follow-up after surgery. Weightbearing AP, lateral and oblique views were obtained. On the right, there is a antonio extending from the proximal first metatarsal through the tarsals to the talus. There are also multiple additional screws in the tarsal region. There is a plate and screws along the dorsum of the talonavicular joint and a orthopedic staple at the first cuneiform. Calcaneal osteotomy is noted. On the left, there is a plate and screws at the first tarsometatarsal joint. There is also an additional screw which does not cross the plate. This hardware was present previously. There is no significant interval change. There is no developing fractures or dislocation. There is flattening of the right plantar arch. Plantar calcaneal spurs are seen. There are minor degenerative changes at the ankles and first toes. No significant soft tissue swelling is seen. XR/XR foot JOMAR min 3V IMPRESSION: BILATERAL POSTOPERATIVE CHANGES, SIMILAR TO PREVIOUS EXAMS. RIGHT ANKLE - 3 views COMPARISON: 01/09/2024 Weightbearing AP, lateral and oblique views were obtained. There is tarsal and first metatarsal fusion hardware which is described in the foot report. The ankle shows no acute fractures or dislocation. On the AP view, there is slight asymmetry at the medial tibiotalar joint which was also seen on the comparison. The talar dome is intact. Minor marginal spurring is seen at the distal tibia no focal soft tissue swelling is noted. IMPRESSION: STABLE APPEARANCE OF THE ANKLE. Impression dictated by: Helen Irizarry M.D.08/19/2024 11:00 AM Dictation Location: [employer] Electronically authenticated by: [id number] Y Date: 08/19/2024 11:00
--- NOTE | 2024-08-19 08:37 | XR_ITS ---
The [address] [address] Patient Name: RG SIMEON MRN: [id number] date: 1960 Sex: M Assigned Patient Location: [facility] Current Patient Location: [facility] Accession/Order Number: [id number] Exam Date: 08/19/2024 10:48 Report Date: 08/19/2024 11:00 At the request of: JENI SAEED DPM Procedure: XR ankle RT min 3V BILATERAL FEET - 3 views each COMPARISON: Right foot 06/10/2024 and left foot 03/26/2023 CLINICAL DATA: Bilateral foot pain. Follow-up after surgery. Weightbearing AP, lateral and oblique views were obtained. On the right, there is a antonio extending from the proximal first metatarsal through the tarsals to the talus. There are also multiple additional screws in the tarsal region. There is a plate and screws along the dorsum of the talonavicular joint and a orthopedic staple at the first cuneiform. Calcaneal osteotomy is noted. On the left, there is a plate and screws at the first tarsometatarsal joint. There is also an additional screw which does not cross the plate. This hardware was present previously. There is no significant interval change. There is no developing fractures or dislocation. There is flattening of the right plantar arch. Plantar calcaneal spurs are seen. There are minor degenerative changes at the ankles and first toes. No significant soft tissue swelling is seen. XR/XR ankle RT min 3V IMPRESSION: BILATERAL POSTOPERATIVE CHANGES, SIMILAR TO PREVIOUS EXAMS. RIGHT ANKLE - 3 views COMPARISON: 01/09/2024 Weightbearing AP, lateral and oblique views were obtained. There is tarsal and first metatarsal fusion hardware which is described in the foot report. The ankle shows no acute fractures or dislocation. On the AP view, there is slight asymmetry at the medial tibiotalar joint which was also seen on the comparison. The talar dome is intact. Minor marginal spurring is seen at the distal tibia no focal soft tissue swelling is noted. IMPRESSION: STABLE APPEARANCE OF THE ANKLE. Impression dictated by: Helen Irizarry M.D.08/19/2024 11:00 AM Dictation Location: [employer] Electronically authenticated by: [id number] Y Date: 08/19/2024 11:00
--- OUTSIDE RECORDS SUMMARY | 2024-08-19 08:45 | XMS_ITS | CCD ---
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 SAL COLEMAN Attending Unavail able Shevchik, Mr. Suarez Attending Unavailabl e Hoy, Audrey Arely Primary Care Unavailable Hoy, Audrey Arely Primary Care Unavailable Shevchik, Mr. Suarez Attending Unavailabl e Hoy, Audrey Arely Primary Care Unavailable Shevcmartin, Mr. Suarez Attending Unavailabl e Self, Referral [...] able Hoy, Audrey Arely Primary Care Unavailable DEBRA, Dr. [...] COLEMAN Admitting Unavail able DEBRA, Dr. SAL COLEAMN Attending Unavail able Audrey nguyen Primary Care Unavailable DEBRA, Dr. SAL COLEMAN Attending Unavail able MD Audrey Armstrong Primary Care Provider [phone] MD Dmitriy De Leon Attending Provider MD Audrey Armstrong Primary Care Provider MD Dmitriy De Leon Attending Provider JENI SAEED Admitting Unavailable ZIEBER, DR LAURY Costello Consulting Unavailable HOY ., DR VENTURA Primary Care Unavailable HIGHLANDER, JENI Albrecht Attending Unavailable HIGHLJENI FRANKLIN Consulting Unavailable HOY ., DR VENTURA Primary Care Unavailable HIGHLANDERJENI Consulting Unavailable EDSIONANDER, JENI Albrecht Admitting Unavailable JENI SAEED Attending Unavailable NILL [...] Unavailable ROCIO ., RADHA HANCOCK Consulting Unavailable GEMBUSLAKIA Consulting Unavailable MEGHANNONCINDY Consulting Unavailable OMAR, WADE Attending Unavailable OMAR, [...] Consulting Unavailable OMAR, WADE Admitting Unavailable ARTURO Grissom, DR VENTURA Primary Care Unavailable WADE NELSON Consulting Unavailable MD Audrey Armstrong Primary Care Provider [phone] MD Hudson De Leon Attending Provider [phone] ANTWAN SORIANO Attending Unavailable AUDREY ARMSTRONG Primary Care Unavailable MD Audrey Armstrong Primary Care Provider [phone] TAD Manriquez Attending Provider STEFANIE KNIGHT Attending Unavailable HURST, FIDEL Referring Unavailable KELBLEY, GENE Attending Unavailable HURST, FIDEL Referring Unavailable KELBLEY, GENE Attending Unavailable HURST, FIDEL Referring Unavailable KELBLEY, GENE Attending Unavailable HURST, FIDEL Referring Unavailable BLACKSSTEFANIE TAM T Attending Unavailable HURST, FIDEL Referring Unavailable KELBLEY, GENE Attending Unavailable HURST, FIDEL Referring Unavailable PB MAY Attending Unavailable HURST, FIDEL Referring Unavailable STEFANIE KNIGHT Attending Unavailable FIDEL NARAYAN Referring Unavailable MD Audrey Armstrong Primary Care Provider [phone] TAD Manriquez Attending Provider MD Audrey Armstrong Primary Care Provider [phone] TAD Manriquez Attending Provider ObSabrina almeida Attending Unavailable Audrey Armstrong Primary Care Unavailable Obermeydeborah Sabrina L Admitting Unavailable Obermeydeborah Sabrina L Admitting Unavailable ObermSabrina camacho Attending Unavailable Audrey Armstrong Primary Care Unavailable Obermeydeborah, Sabrina Korin Admitting Unavailable ObSabrina almeida Attending Unavailable Audrey Armstrong Primary Care Unavailable Shun MACHADO Attending Unavailable Shun MACHADO Attending Unavailable Fidel Narayan Attending Unavailable Fidel Narayan Referring Unavailable Audrey Armstrong Primary Care Unavailable Fidel Narayan MD Unavailable Unavailable Allergies Allergy Classification Reported Allergen(s) Allergy Type Date of Onset Reaction(s) Facility (18 sources) Penicillins; Translations: [Penicillins] Allergy to drug (finding) 7 Rash [facility] Work Phone: (7 sources) Penicillin; Translations: [penicillin] Drug Allergy Eruption of skin (disorder) General Surgery [place] (2 sources) oxyCODONE Drug Allergy 1 [facility] (2 sources) Penicillins Drug allergy (disorder) 7 [facility] (1 source) Penicillins Drug allergy (disorder) 2 [facility] Medications Current Medications [...] for 30 day(s), 120 tab(s), Refill(s) 11, [employer] [facility], 170, cm, 10/16/22 14:31:00 EDT, [...] mg/ml medicated liquid soap (17 sources) Start: 03-29-2022 Hibiclens 4 % External Liquid USE DIRECTED. 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, vertebrae] Onset: 06-21-2021 Chronic Other non-traumatic joint disorders (6 sources) Pain in right shoulder Onset: 07-05-2023 Episodic Other non-traumatic joint disorders (6 sources) Pain in left shoulder Onset: 07-05-2023 Episodic Other nutritional; endocrine; and metabolic disorders (10 [...] 09-27-2021 Episodic Other aftercare (2 sources) 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; Translations: [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] Onset: 06-02-2021 Episodic Other [...] [PAIN IN RIGHT ANKLE] Onset: 02-16-2022 Episodic Other non-traumatic joint disorders (2 sources) Pain in left knee Onset: 07-05-2023 Episodic Unclassified (1 source) Low back pain, unspecified; Translations: [Low back pain, unspecified] Onset: 05-02-2022 Unclassified (1 source) COUGH, UNSPECIFIED; Translations: [COUGH, UNSPECIFIED] Onset: 09-11-2022 Results Test Name Value Interpretation Reference Range Facility Ambulatory Visit Summaryon 1 Ambulatory Visit Summary Ambulatory Visit Summary JAY CARR Trena :1960 Visit Date:04/13/2024 Ambulatory Visit Instructions Your [...] Shun MACHADO MD Where: [facility] [address] [place] [address]- You Need to Schedule the Following Appointments Follow Up with Shun MACHADO MD, URL When: Where: [address] [address]- Medications What How Much When [...] tips fo (more content not included)... Normal [facility] Urology Office/Clinic Noteon 04-13-2024 Urology Office/Clinic Note [...] the plan Follow-up With When Contact Information Shun MACHADO MD, URL [address] [address]- Additional Instructions: 1 yr with KUB and [...] with voice recognition artificial intelligence software, specifically [employer] and or HeadCount. Substitutions may have occurred due to the [...] Kidney stone (more content not included)... Normal [facility] Comment on above: Result Comment: Elec tronically Signed By: Shun MACHADO MD\.br\Date and Time Signed: 04/13/24 10:19 EDT\.br\Electronically Co-Signed By: Mary Alicea\.br\Date and Time Co-Signed: 04/13/24 10:15 EDT Provider Letteron 03-27-2024 Provider Letter Provider Letter March 27, 2024 JAY CARR [address] [place] [id number] : 1960 Dear Jay , We have been trying to reach you with no success. It is important that you return our call regarding need to repeat gallbladder ultrasound upon receiving this letter. Thank you for your prompt attention to this matter. Sincerely, Dr. Arely Logan MD General Surgery Normal [facility] Alanine aminotransferase [En zymatic activity/volume] in Serum or PlasmaOrdered By: Sabrina Manriquez on 03-04-2024 ALT [Catalytic activity/Vol] 27 U/L Normal 7-52 [facility] Comment on above: Performed By: #### C 4, C3, CH50 #### [facility] , #### CBC, CMP, ESR, ADDONUAPLUS, CRP #### [facility] [address] [place] [address] [place] Albumin [Mass/volume] in Ser um or Plasma by Bromocresol green (BCG) dye binding methoOrdered By: Sabrina Manriquez on 03-04-2024 Albumin BCG dye [Mass/Vol] 4.4 g/dL 3.5-5.7 [facility] Alkaline phosphatase [Enzyma tic activity/volume] in Serum or PlasmaOrdered By: Sabrina Manriquez on 03-04-2024 ALP [Catalytic activity/Vol] 92 U/L Normal 34-104 [facility] Comment on above: Performed By: #### C 4, C3, CH50 #### [facility] , #### CBC, CMP, ESR, ADDONUAPLUS, CRP #### [facility] [address] [place] [address] [place] Aspartate aminotransferase [ Enzymatic activity/volume] in Serum or PlasmaOrdered By: Sabrina Manriquez on 03-04-2024 AST [Catalytic activity/Vol] 21 U/L Normal 13-39 [facility] Comment on above: Performed By: #### C 4, C3, CH50 #### [facility] , #### CBC, CMP, ESR, ADDONUAPLUS, CRP #### [facility] [address] [place] [address] Automated basophil %Ordered By: Sabrina Manriquez on 03-04-2024 Basophils/100 WBC (Bld) 0.6 % Normal . [facility] Comment on above: Performed By: #### C 4, C3, CH50 #### [facility] , #### CBC, CMP, ESR, ADDONUAPLUS, CRP #### [address] Automated basophil countOrde red By: Sabrina Manriquez on 03-04-2024 Basophils (Bld) [#/Vol] 0.0 10*3/uL Normal 0.0-0.2 [facility] Comment on above: Performed By: #### C 4, C3, CH50 #### [facility] , #### CBC, CMP, ESR, ADDONUAPLUS, CRP #### [address] Automated blood monocyte cou ntOrdered By: Sabrina Manriquez on 03-04-2024 Monocytes (Bld) [#/Vol] 0.3 10*3/uL Normal 0.0-0.8 [facility] Comment on above: Performed By: #### C 4, C3, CH50 #### [facility] , #### CBC, CMP, ESR, ADDONUAPLUS, CRP #### [address] Automated eosinophil %Ordere d By: Sabrina Manriquez on 03-04-2024 Eosinophils/100 WBC (Bld) 1.3 % Normal . [facility] Comment on above: Performed By: #### C 4, C3, CH50 #### [facility] , #### CBC, CMP, ESR, ADDONUAPLUS, CRP #### [facility] [address] [place] [address] Automated eosinophil countOr dered By: Sabrina Manriquez on 03-04-2024 Eosinophils (Bld) [#/Vol] 0.1 10*3/uL Normal 0.0-0.45 [facility] Comment on above: Performed By: #### C 4, C3, CH50 #### [facility] , #### CBC, CMP, ESR, ADDONUAPLUS, CRP #### [address] Automated monocyte %Ordered By: Sabrina Manriquez on 03-04-2024 Monocytes/100 WBC (Bld) 6.6 % Normal . [facility] Comment on above: Performed By: #### C 4, C3, CH50 #### [facility] , #### CBC, CMP, ESR, ADDONUAPLUS, CRP #### [address] Automated neutrophil %Ordere d By: Sabrina Manriquez on 03-04-2024 Neutrophils/100 WBC (Bld) 70.7 % Normal . [facility] Comment on above: Performed By: #### C 4, C3, CH50 #### [facility] , #### CBC, CMP, ESR, ADDONUAPLUS, CRP #### [address] Bacteria [Presence] in Urine by AutomatedOrdered By: Sabrina Manriquez on 03-04-2024 Bacteria Auto Ql (U) None seen [HPF] None Seen [facility] Bilirubin Test strip Ql (U)O rdered By: Sabrina Manriquez on 03-04-2024 Bilirubin Ql (U) Negative Negative [facility] Bilirubin.total [Mass/volume ] in Serum or PlasmaOrdered By: Sabrina Manriquez on 03-04-2024 Bilirubin [Mass/Vol] 0.6 mg/dL Normal 0.3-1.0 [facility] Comment on above: Performed By: #### C 4, C3, CH50 #### [facility] , #### CBC, CMP, ESR, ADDONUAPLUS, CRP #### [place] [id number] [place] C reactive protein [Mass/vol ume] in Serum or PlasmaOrdered By: Sabrina Manriquez on 03-04-2024 CRP [Mass/Vol] < 0.5 mg/dL 0.0-0.5 [facility] C-Reactive Proteinon 024 CRP [Mass/Vol] mg/L Normal 0.0-0.5 [facility] Comment on above: Result Comment: PERF ORMED BY: [place] [address] PATHOLOGIST TRADING ASSISTANT KRISTIE BAKER M.D. Performed By: #### C 4, C3, CH50 #### [facility] , #### CBC, CMP, ESR, ADDONUAPLUS, CRP #### [facility] [address] [place] [address] Calcium [Mass/volume] in Ser um or PlasmaOrdered By: Sabrina Manriquez on 03-04-2024 Calcium [Mass/Vol] 9.2 mg/dL Normal 8.6-10.3 [facility] Comment on above: Performed By: #### C 4, C3, CH50 #### [facility] , #### CBC, CMP, ESR, ADDONUAPLUS, CRP #### [facility] [address] [place] [address] [place] Carbon dioxide, total [Moles /volume] in Serum or PlasmaOrdered By: Sabrina Manriquez on 03-04-2024 CO2 [Moles/Vol] 29.4 mmol/L Normal 21.0-31.0 [facility] Comment on above: Performed By: #### C 4, C3, CH50 #### [facility] , #### CBC, CMP, ESR, ADDONUAPLUS, CRP #### [facility] [address] [place] [address] [place] Chloride [Moles/volume] in S lenny or PlasmaOrdered By: Sabrina Manriquez on 03-04-2024 Chloride [Moles/Vol] 104 mmol/L Normal 98-107 [facility] Comment on above: Performed By: #### C 4, C3, CH50 #### [facility] , #### CBC, CMP, ESR, ADDONUAPLUS, CRP #### [address] Color of Urine by AutoOrdere d By: Sabrina Manriquez on 03-04-2024 Color (U) Light-yellow Normal Yellow [facility] Comment on above: Order Comment: Name Collection Type:: Clean-Voided Midstream Performed By: #### C 4, C3, CH50 #### [facility] , #### CBC, CMP, ESR, ADDONUAPLUS, CRP #### [address] Complement C3on 03-04-2024 Complement C3 138 mg/dL Normal 82-167 [facility] Comment on above: Result Comment: Perf ormed at: CB - [facility] [place] [phone] Supervisor Volunteer Services: Derek Toscano PhD, Phone: [phone] Performed By: #### C 4, C3, CH50 #### [facility] , #### CBC, CMP, ESR, ADDONUAPLUS, CRP #### [place] [address] [place] Complement C4on 03-04-2024 Complement C4 23 mg/dL Normal 12-38 [facility] Comment on above: Result Comment: PERF ORMED BY: [place] [address] PATHOLOGIST TRADING ASSISTANT KRISTIE BAKER M.D. Performed By: #### C 4, C3, CH50 #### [facility] , #### CBC, CMP, ESR, ADDONUAPLUS, CRP #### [place] [address] [place] Complement Total (CH50)on Complement Total (CH50) 48 Normal >41 [facility] Comment on above: Result Comment: [...] out of range values. Performed at: - [facility] [id number] Supervisor Volunteer Services: Derek Toscano PhD, Phone: [phone] PERFORMED BY: [place] [address] PATHOLOGIST TRADING ASSISTANT KRISTIE BAKER M.D. Performed By: #### C 4, C3, CH50 #### [facility] , #### CBC, CMP, ESR, ADDONUAPLUS, CRP #### [address] Complete Blood Count Auto Di ffon 03-04-2024 Mean Corpuscular HGB Conc 34.2 g/dL Normal 32.5-35.6 [facility] Comment on above: Performed By: #### C 4, C3, CH50 #### [facility] , #### CBC, CMP, ESR, ADDONUAPLUS, CRP #### [address] NRBC% 0.1 /100{WBC} Normal 0-0.5 [facility] Comment on above: Performed By: #### C 4, C3, CH50 #### [facility] , #### CBC, CMP, ESR, ADDONUAPLUS, CRP #### [address] Comprehensive Metabolic Pane tanika 03-04-2024 Albumin [Mass/Vol] 4.4 g/dL Normal 3.5-5.7 [facility] Comment on above: Performed By: #### C 4, C3, CH50 #### [facility] , #### CBC, CMP, ESR, ADDONUAPLUS, CRP #### [facility] [address] [place] [address] [place] GFR/1.73 sq M.predicted MDRD (S/P/Bld) [Vol rate/Area] mL/min/{1.73_m2} Normal [facility] Comment on above: Performed By: #### C 4, C3, CH50 #### [facility] , #### CBC, CMP, ESR, ADDONUAPLUS, CRP #### [address] Creatinine [Mass/volume] in Serum or PlasmaOrdered By: Sabrina Manriquez on 03-04-2024 Creatinine [Mass/Vol] 0.93 mg/dL Normal 0.70-1.30 [facility] Comment on above: Performed By: #### C 4, C3, CH50 #### [facility] , #### CBC, CMP, ESR, ADDONUAPLUS, CRP #### [place] [address] [place] Dipstick and Microscopicon 0 03-04-2024 Bacteria,Urine None Seen Normal None Seen [facility] Comment on above: Order Comment: Name Collection Type:: Clean-Voided Midstream Performed By: #### C 4, C3, CH50 #### [facility] , #### CBC, CMP, ESR, ADDONUAPLUS, CRP #### [place] [address] [place] Bilirubin,Urine Negative Normal Negative [facility] Comment on above: Order Comment: Name Collection Type:: Clean-Voided Midstream Performed By: #### C 4, C3, CH50 #### [facility] , #### CBC, CMP, ESR, ADDONUAPLUS, CRP #### [place] [address] [place] Glucose Ql (U) Normal Normal Normal [facility] Comment on above: Order Comment: Name Collection Type:: Clean-Voided Midstream Performed By: #### C 4, C3, CH50 #### [facility] , #### CBC, CMP, ESR, ADDONUAPLUS, CRP #### [address] Hyaline Casts,Urine None Normal 0-8 [facility] Comment on above: Order Comment: Name Collection Type:: Clean-Voided Midstream Performed By: #### C 4, C3, CH50 #### [facility] , #### CBC, CMP, ESR, ADDONUAPLUS, CRP #### [address] Mucus,Urine Rare Normal [facility] Comment on above: Order Comment: Name Collection Type:: Clean-Voided Midstream Result Comment: PERF ORMED BY: [place] [address] PATHOLOGIST TRADING ASSISTANT KRISTIE BAKER M.D. Performed By: #### C 4, C3, CH50 #### [facility] , #### CBC, CMP, ESR, ADDONUAPLUS, CRP #### [address] Nitrite,Urine Negative Normal Negative [facility] Comment on above: Order Comment: Name Collection Type:: Clean-Voided Midstream Performed By: #### C 4, C3, CH50 #### [facility] , #### CBC, CMP, ESR, ADDONUAPLUS, CRP #### [address] Occult Blood,Urine Negative Normal Negative [facility] Comment on above: Order Comment: Name Collection Type:: Clean-Voided Midstream Performed By: #### C 4, C3, CH50 #### [facility] , #### CBC, CMP, ESR, ADDONUAPLUS, CRP #### [address] Protein,Urine Trace High Negative [facility] Comment on above: Order Comment: Name Collection Type:: Clean-Voided Midstream Performed By: #### C 4, C3, CH50 #### [facility] , #### CBC, CMP, ESR, ADDONUAPLUS, CRP #### [address] RBC,Urine 1-2 Normal 0-4 [facility] Comment on above: Order Comment: Name Collection Type:: Clean-Voided Midstream Performed By: #### C 4, C3, CH50 #### [facility] , #### CBC, CMP, ESR, ADDONUAPLUS, CRP #### [address] Specificy [place],Urine 1.020 Normal 1.001-1.03 0 [facility] Comment on above: Order Comment: Name Collection Type:: Clean-Voided Midstream Performed By: #### C 4, C3, CH50 #### [facility] , #### CBC, CMP, ESR, ADDONUAPLUS, CRP #### [address] Urobilinogen,Urine Normal Normal Normal [facility] Comment on above: Order Comment: Name Collection Type:: Clean-Voided Midstream Performed By: #### C 4, C3, CH50 #### [facility] , #### CBC, CMP, ESR, ADDONUAPLUS, CRP #### [place] [address] [place] WBC,Urine 1-2 Normal 0-4 [facility] Comment on above: Order Comment: Name Collection Type:: Clean-Voided Midstream Performed By: #### C 4, C3, CH50 #### [facility] , #### CBC, CMP, ESR, ADDONUAPLUS, CRP #### [address] Epithelial cells.squamous [# /area] in Urine sediment by Automated countOrdered By: Sabrina Manriquez on 03-04-2024 Epithelial cells.squamous Auto (Urine sed) [#/Area] N/A [facility] Erythrocyte Sedimentation Ra natan 03-04-2024 ESR (Bld) [Velocity] 9 mm/h Normal 0-19 [facility] Comment on above: Result Comment: PERF ORMED BY: [place] [address] PATHOLOGIST TRADING ASSISTANT KRISTIE BAKER M.D. Performed By: #### C 4, C3, CH50 #### [facility] , #### CBC, CMP, ESR, ADDONUAPLUS, CRP #### [address] Erythrocyte distribution wid th [Ratio] by Automated countOrdered By: Sabrina Manriquez on 03-04-2024 Erythrocyte distribution width (RBC) [Ratio] 13.6 % Normal 12.0-14.8 [facility] Comment on above: Performed By: #### C 4, C3, CH50 #### [facility] , #### CBC, CMP, ESR, ADDONUAPLUS, CRP #### [address] Erythrocyte sedimentation ra te by Photometric methodOrdered By: Sabrina Manriquez on 03-04-2024 ESR Photometric method (Bld) [Velocity] 9 mm/hr 0-19 [facility] Erythrocytes [#/area] in Uri ne sediment by Automated countOrdered By: Sabrina Manriquez on 03-04-2024 RBC Auto (Urine sed) [#/Area] 1-2 [HPF] 0-4 [facility] Erythrocytes [#/volume] in B lood by Automated countOrdered By: Sabrina Manriquez on 03-04-2024 RBC (Bld) [#/Vol] 4.54 10*6/uL Normal 3.90-5.60 [facility] Comment on above: Performed By: #### C 4, C3, CH50 #### [facility] , #### CBC, CMP, ESR, ADDONUAPLUS, CRP #### [facility] [address] [place] [id number] [place] Glucose [Mass/volume] in Ser um or PlasmaOrdered By: Sabrina Manriquez on 03-04-2024 Glucose [Mass/Vol] 132 mg/dL High 70-100 [facility] Comment on above: ADA recommended refe rence rangeRandom Glucose Reference Range is dependent on time and content of last meal. Glucose of more than 200 mg/dL in a nonstressed, ambulatory subject supports the diagnosis of Diabetes Mellitus. Result Comment: [place] om Glucose Reference Range is dependent on time and content of last meal. Glucose of more than 200 mg/dL in a nonstressed, ambulatory subject supports the diagnosis of Diabetes Mellitus. ADA recommended reference range Performed By: #### C 4, C3, CH50 #### [facility] , #### CBC, CMP, ESR, ADDONUAPLUS, CRP #### [facility] [address] [place] [id number] [place] Glucose [Mass/volume] in Uri ne by Test stripOrdered By: Sabrina Manriquez on 03-04-2024 Glucose Test strip (U) [Mass/Vol] Normal mg/dL Normal [facility] Hematocrit [Volume Fraction] of Blood by Automated countOrdered By: Sabrina Manriquez on 03-04-2024 Hematocrit (Bld) [Volume fraction] 42.8 % Normal 38.8-50.0 [facility] Comment on above: Performed By: #### C 4, C3, CH50 #### [facility] , #### CBC, CMP, ESR, ADDONUAPLUS, CRP #### [facility] [address] [place] [id number] [place] Hemoglobin Test strip Ql (U) Ordered By: Sabrina Manriquez on 03-04-2024 Hemoglobin Ql (U) Negative Negative [facility] Hemoglobin [Mass/volume] in BloodOrdered By: Sabrina Manriquez on 03-04-2024 Hemoglobin (Bld) [Mass/Vol] 14.6 g/dL Normal 13.0-17.0 [facility] Comment on above: Performed By: #### C 4, C3, CH50 #### [facility] , #### CBC, CMP, ESR, ADDONUAPLUS, CRP #### [facility] [address] [place] [address] [place] Hyaline casts [#/area] in Ur ine sediment by Automated countOrdered By: Sabrina Manriquez on 03-04-2024 Hyaline casts Auto (Urine sed) [#/Area] None [LPF] 0-8 [facility] Ketones [Presence] in Urine by Test stripOrdered By: Sabrina Manriquez on 03-04-2024 Ketones Ql (U) Negative Normal Negative [facility] Comment on above: Order Comment: Name Collection Type:: Clean-Voided Midstream Performed By: #### C 4, C3, CH50 #### [facility] , #### CBC, CMP, ESR, ADDONUAPLUS, CRP #### [facility] [address] [place] [address] [place] Leukocyte esterase [Presence ] in Urine by Test stripOrdered By: Sabrina Manriquez on 03-04-2024 Leukocyte esterase Test strip Ql (U) Negative Normal Negative [facility] Comment on above: Order Comment: Name Collection Type:: Clean-Voided Midstream Performed By: #### C 4, C3, CH50 #### [facility] , #### CBC, CMP, ESR, ADDONUAPLUS, CRP #### [facility] [address] [place] [address] [place] Leukocytes [#/area] in Urine sediment by Automated countOrdered By: Sabrina Manriquez on 03-04-2024 WBC Auto (Urine sed) [#/Area] 1-2 [HPF] 0-4 [facility] Leukocytes [#/volume] correc leah for nucleated erythrocytes in Blood by Automated counOrdered By: Sabrina Manriquez on 03-04-2024 WBC corrected for nucl RBC Auto (Bld) [#/Vol] 5.1 10*3/uL 4.1-10.5 [facility] Leukocytes [#/volume] in Blo od by Automated countOrdered By: Sabrina Manriquez on 03-04-2024 WBC (Bld) [#/Vol] 5.1 10*3/uL Normal 4.1-10.5 [facility] Comment on above: Performed By: #### C 4, C3, CH50 #### [facility] , #### CBC, CMP, ESR, ADDONUAPLUS, CRP #### [facility] [address] [place] [address] Lymphocytes [#/volume] in Bl ood by Automated countOrdered By: Sabrina Manriquez on 03-04-2024 Lymphocytes (Bld) [#/Vol] 1.1 10*3/uL Normal 1.00-4.8 [facility] Comment on above: Performed By: #### C 4, C3, CH50 #### [facility] , #### CBC, CMP, ESR, ADDONUAPLUS, CRP #### [facility] [address] [place] [address] [place] Lymphocytes/100 leukocytes i n Blood by Automated countOrdered By: Sabrina Manriquez on 03-04-2024 Lymphocytes/100 WBC (Bld) 20.8 % Normal . [facility] Comment on above: Performed By: #### C 4, C3, CH50 #### [facility] , #### CBC, CMP, ESR, ADDONUAPLUS, CRP #### [facility] [address] [place] [address] [place] MCH [Entitic mass] by Automa leah countOrdered By: Sabrina Manriquez on 03-04-2024 MCH (RBC) [Entitic mass] 32.2 pg Normal 27.5-35.2 [facility] Comment on above: Performed By: #### C 4, C3, CH50 #### [facility] , #### CBC, CMP, ESR, ADDONUAPLUS, CRP #### [facility] [address] MCHC Auto (RBC) [Mass/Vol]Or dered By: Sabrina Manriquez on 03-04-2024 MCHC (RBC) [Mass/Vol] 34.2 g/dL 32.5-35.6 [facility] MCV [Entitic volume] by Auto mated countOrdered By: Sabrina Manriquez on 03-04-2024 MCV (RBC) [Entitic vol] 94.2 fL Normal 83.5-101 [facility] Comment on above: Performed By: #### C 4, C3, CH50 #### [facility] , #### CBC, CMP, ESR, ADDONUAPLUS, CRP #### [facility] [address] [place] [address] Mucus [Presence] in Urine by AutomatedOrdered By: Sabrina Manriquez on 03-04-2024 Mucus Auto Ql (U) Rare [LPF] [facility] Neutrophils [#/volume] in Bl ood by Automated countOrdered By: Sabrina Manriquez on 03-04-2024 Neutrophils (Bld) [#/Vol] 3.6 10*3/uL Normal 1.8-7.7 [facility] Comment on above: Performed By: #### C 4, C3, CH50 #### [facility] , #### CBC, CMP, ESR, ADDONUAPLUS, CRP #### [facility] [address] [place] [address] Nitrite Test strip Ql (U)Ord ered By: Sabrina Manriquez on 03-04-2024 Nitrite Ql (U) Negative Negative [facility] No Panel InformationOrdered By: Sabrina Manriquez on 03-04-2024 Estimated GFR (CKD-EPI) > 60.0 mL/Min [facility] Creatinine Clearance (Chem N/A [facility] Nucleated erythrocytes [Pres ence] in Blood by Automated countOrdered By: Sabrina Manriquez on 03-04-2024 Nucleated RBC Auto Ql (Bld) 0.1 /100{WBC} 0-0.5 [facility] Platelet mean volume [Entiti c volume] in Blood by Automated countOrdered By: Sabrina Manriquez on 03-04-2024 Platelet mean volume (Bld) [Entitic vol] 9.1 fL Normal 6.6-10.1 [facility] Comment on above: Performed By: #### C 4, C3, CH50 #### [facility] , #### CBC, CMP, ESR, ADDONUAPLUS, CRP #### [facility] [address] Platelets [#/volume] in Bloo d by Automated countOrdered By: Sabrina Manriquez on 03-04-2024 Platelets (Bld) [#/Vol] 235 10*3/uL Normal 150-450 [facility] Comment on above: Performed By: #### C 4, C3, CH50 #### [facility] , #### CBC, CMP, ESR, ADDONUAPLUS, CRP #### [facility] [address] Potassium [Moles/volume] in Serum or PlasmaOrdered By: Sabrina Manriquez on 03-04-2024 Potassium [Moles/Vol] 4.2 mmol/L Normal 3.5-5.1 [facility] Comment on above: Performed By: #### C 4, C3, CH50 #### [facility] , #### CBC, CMP, ESR, ADDONUAPLUS, CRP #### [facility] [address] Protein Test strip (U) [Mass /Vol]Ordered By: Sabrina Manriquez on 03-04-2024 Protein (U) [Mass/Vol] Trace mg/dL High Negative F [facility] Protein [Mass/volume] in Ser um or PlasmaOrdered By: Sabrina Manriquez on 03-04-2024 Protein [Mass/Vol] 7.1 g/dL Normal 6.4-8.9 [facility] Comment on above: Performed By: #### C 4, C3, CH50 #### [facility] , #### CBC, CMP, ESR, ADDONUAPLUS, CRP #### [address] Serum globulin measurement b y calculation (mass/volume)Ordered By: Sabrina Manriquez on 03-04-2024 Globulin (S) [Mass/Vol] 2.7 g/dL [facility] Comment on above: Performed By: #### C 4, C3, CH50 #### [facility] , #### CBC, CMP, ESR, ADDONUAPLUS, CRP #### [address] Serum or plasma albumin/glob ulin mass ratioOrdered By: Sabrina Manriquez on 03-04-2024 Albumin/Globulin [Mass ratio] 1.6 {ratio} [facility] Comment on above: Performed By: #### C 4, C3, CH50 #### [facility] , #### CBC, CMP, ESR, ADDONUAPLUS, CRP #### [address] Serum or plasma anion gap de terminationOrdered By: Sabrina Manriquez on 03-04-2024 Anion gap [Moles/Vol] 10.8 mmol/L Normal 6.0-15.0 [facility] Comment on above: Performed By: #### C 4, C3, CH50 #### [facility] , #### CBC, CMP, ESR, ADDONUAPLUS, CRP #### [facility] [address] [place] [address] Sodium [Moles/volume] in Ser um or PlasmaOrdered By: Sabrina Manriquez on 03-04-2024 Sodium [Moles/Vol] 140 mmol/L Normal 136-145 [facility] Comment on above: Performed By: #### C 4, C3, CH50 #### [facility] , #### CBC, CMP, ESR, ADDONUAPLUS, CRP #### [address] Specific gravity Test strip (U) [Rel density]Ordered By: Sabrina Manriquez on 03-04-2024 Specific gravity (U) [Rel density] 1.020 1.001-1.03 0 [facility] Urea nitrogen [Mass/volume] in Serum or PlasmaOrdered By: Sabrina Manriquez on 03-04-2024 Urea nitrogen [Mass/Vol] 18 mg/dL Normal 7-25 [facility] Comment on above: Performed By: #### C 4, C3, CH50 #### [facility] , #### CBC, CMP, ESR, ADDONUAPLUS, CRP #### [address] Urine appearanceOrdered By: Sabrina Manriquez on 03-04-2024 Appearance (U) Clear Normal Clear [facility] Comment on above: Order Comment: Name Collection Type:: Clean-Voided Midstream Performed By: #### C 4, C3, CH50 #### [facility] , #### CBC, CMP, ESR, ADDONUAPLUS, CRP #### [address] Urobilinogen Test strip (U) [Mass/Vol]Ordered By: Sabrina Manriquez on 03-04-2024 Urobilinogen (U) [Mass/Vol] Normal mg/dL Normal [facility] pH of Urine by Test stripOrd ered By: Sabrina Manriquez on 03-04-2024 pH (U) 5.5 [pH] Normal 5.0-9.0 [facility] Comment on above: Order Comment: Name Collection Type:: Clean-Voided Midstream Performed By: #### C 4, C3, CH50 #### [facility] , #### CBC, CMP, ESR, ADDONUAPLUS, CRP #### [address] Alanine aminotransferase [En zymatic activity/volume] in Serum or PlasmaOrdered By: Sabrina Manriquez on 11-19-2023 ALT [Catalytic activity/Vol] 28 U/L Normal 7-52 [facility] Comment on above: Performed By: #### E SR, ADDONUAPLUS, CBC, CMP, CRP #### [place] [address] [place] #### C4, C3, CH50 #### [facility] , Albumin [Mass/volume] in Ser um or Plasma by Bromocresol green (BCG) dye binding methoOrdered By: Sabrina Manriquez on 11-19-2023 Albumin BCG dye [Mass/Vol] 4.1 g/dL 3.5-5.7 [facility] Alkaline phosphatase [Enzyma tic activity/volume] in Serum or PlasmaOrdered By: Sabrina Manriquez on 11-19-2023 ALP [Catalytic activity/Vol] 70 U/L Normal 34-104 [facility] Comment on above: Performed By: #### E SR, ADDONUAPLUS, CBC, CMP, CRP #### [place] [address] [place] #### C4, C3, CH50 #### [facility] , Aspartate aminotransferase [ Enzymatic activity/volume] in Serum or PlasmaOrdered By: Sabrina Manriquez on 11-19-2023 AST [Catalytic activity/Vol] 29 U/L Normal 13-39 [facility] Comment on above: Performed By: #### E SR, ADDONUAPLUS, CBC, CMP, CRP #### [facility] [address] [place] [address] [place] #### C4, C3, CH50 #### [facility] , Automated basophil %Ordered By: Sabrina Manriquez on 11-19-2023 Basophils/100 WBC (Bld) 0.7 % Normal . [facility] Comment on above: Performed By: #### C 4, C3, CH50 #### [facility] , #### CBC, CMP, ESR, ADDONUAPLUS, CRP #### [address] Automated basophil countOrde red By: Sabrina Manriquez on 11-19-2023 Basophils (Bld) [#/Vol] 0.0 10*3/uL Normal 0.0-0.2 [facility] Comment on above: Performed By: #### C 4, C3, CH50 #### [facility] , #### CBC, CMP, ESR, ADDONUAPLUS, CRP #### [address] Automated blood monocyte cou ntOrdered By: Sabrina Manriquez on 11-19-2023 Monocytes (Bld) [#/Vol] 0.5 10*3/uL Normal 0.0-0.8 [facility] Comment on above: Performed By: #### C 4, C3, CH50 #### [facility] , #### CBC, CMP, ESR, ADDONUAPLUS, CRP #### [address] Automated eosinophil %Ordere d By: Sabrina Manriquez on 11-19-2023 Eosinophils/100 WBC (Bld) 1.6 % Normal . [facility] Comment on above: Performed By: #### C 4, C3, CH50 #### [facility] , #### CBC, CMP, ESR, ADDONUAPLUS, CRP #### [address] Automated eosinophil countOr dered By: Sabrina Manriquez on 11-19-2023 Eosinophils (Bld) [#/Vol] 0.1 10*3/uL Normal 0.0-0.45 [facility] Comment on above: Performed By: #### C 4, C3, CH50 #### [facility] , #### CBC, CMP, ESR, ADDONUAPLUS, CRP #### [address] Automated epithelial cells c ount in urine sediment (number/area)Ordered By: Sabrina Manriquez on 11-19-2023 Epithelial cells Auto (Urine sed) [#/Area] None seen [HPF] 0-2 [facility] Automated monocyte %Ordered By: Sabrina Manriquez on 11-19-2023 Monocytes/100 WBC (Bld) 8.0 % Normal . [facility] Comment on above: Performed By: #### C 4, C3, CH50 #### [facility] , #### CBC, CMP, ESR, ADDONUAPLUS, CRP #### [address] Automated neutrophil %Ordere d By: Sabrina Manriquez on 11-19-2023 Neutrophils/100 WBC (Bld) 70.9 % Normal . [facility] Comment on above: Performed By: #### C 4, C3, CH50 #### [facility] , #### CBC, CMP, ESR, ADDONUAPLUS, CRP #### [address] Bacteria [Presence] in Urine by AutomatedOrdered By: Sabrina Manriquez on 11-19-2023 Bacteria Auto Ql (U) None seen [HPF] None Seen [facility] Bilirubin Test strip Ql (U)O rdered By: Sabrina Manriquez on 11-19-2023 Bilirubin Ql (U) Negative Negative [facility] Bilirubin.total [Mass/volume ] in Serum or PlasmaOrdered By: Sabrina Manriquez on 11-19-2023 Bilirubin [Mass/Vol] 0.5 mg/dL Normal 0.3-1.0 [facility] Comment on above: Performed By: #### E SR, ADDONUAPLUS, CBC, CMP, CRP #### [address] #### C4, C3, CH50 #### [facility] , C reactive protein [Mass/vol ume] in Serum or PlasmaOrdered By: Sabrina Manriquez on 11-19-2023 CRP [Mass/Vol] < 0.5 mg/dL 0.0-0.5 [facility] C-Reactive Proteinon 024 CRP [Mass/Vol] mg/L Normal 0.0-0.5 [facility] Comment on above: Result Comment: PERF ORMED BY: [place] [address] PATHOLOGIST TRADING ASSISTANT KRISTIE BAKER M.D. Performed By: #### C 4, C3, CH50 #### [facility] , #### CBC, CMP, ESR, ADDONUAPLUS, CRP #### [facility] [address] [place] [address] Calcium [Mass/volume] in Ser um or PlasmaOrdered By: Sabrina Manriquez on 11-19-2023 Calcium [Mass/Vol] 9.1 mg/dL Normal 8.6-10.3 [facility] Comment on above: Performed By: #### E SR, ADDONUAPLUS, CBC, CMP, CRP #### [facility] [address] [place] [address] #### C4, C3, CH50 #### [facility] , Carbon dioxide, total [Moles /volume] in Serum or PlasmaOrdered By: Sabrina Manriquez on 11-19-2023 CO2 [Moles/Vol] 30.2 mmol/L Normal 21.0-31.0 [facility] Comment on above: Performed By: #### E SR, ADDONUAPLUS, CBC, CMP, CRP #### [facility] [address] [place] [address] [place] #### C4, C3, CH50 #### [facility] , Chloride [Moles/volume] in S lenny or PlasmaOrdered By: Sabrina Manriquez on 11-19-2023 Chloride [Moles/Vol] 105 mmol/L Normal 98-107 [facility] Comment on above: Performed By: #### E SR, ADDONUAPLUS, CBC, CMP, CRP #### [address] #### C4, C3, CH50 #### [facility] , Color of Urine by AutoOrdere d By: Sabrina Manriquez on 11-19-2023 Color (U) Yellow Normal Yellow [facility] Comment on above: Order Comment: Name Collection Type:: Clean-Voided Midstream Performed By: #### E SR, ADDONUAPLUS, CBC, CMP, CRP #### [address] #### C4, C3, CH50 #### [facility] , Complement C3on 11-19-2023 Complement C3 129 mg/dL Normal 82-167 [facility] Comment on above: Result Comment: Perf ormed at: - [facility] [place] [address] Supervisor Volunteer Services: Derek Toscano PhD, Phone: [phone] Performed By: #### C 4, C3, CH50 #### [facility] , #### CBC, CMP, ESR, ADDONUAPLUS, CRP #### [address] Complement C4on 11-19-2023 Complement C4 20 mg/dL Normal 12-38 [facility] Comment on above: Result Comment: PERF ORMED BY: [place] [address] PATHOLOGIST TRADING ASSISTANT KRISTIE BAKER M.D. Performed By: #### C 4, C3, CH50 #### [facility] , #### CBC, CMP, ESR, ADDONUAPLUS, CRP #### [address] Complement Total (CH50)on Complement Total (CH50) 48 Normal >41 [facility] Comment on above: Result Comment: [...] out of range values. Performed at: - [facility] [id number] Supervisor Volunteer Services: Derek Toscano PhD, Phone: [phone] PERFORMED BY: [place] [address] PATHOLOGIST TRADING ASSISTANT KRISTIE BAKER M.D. Performed By: #### C 4, C3, CH50 #### [facility] , #### CBC, CMP, ESR, ADDONUAPLUS, CRP #### [address] Complete Blood Count Auto Di ffon 11-19-2023 Mean Corpuscular HGB Conc 34.0 g/dL Normal 32.5-35.6 [facility] Comment on above: Performed By: #### C 4, C3, CH50 #### [facility] , #### CBC, CMP, ESR, ADDONUAPLUS, CRP #### [address] NRBC% 0.1 /100{WBC} Normal 0-0.5 [facility] Comment on above: Performed By: #### C 4, C3, CH50 #### [facility] , #### CBC, CMP, ESR, ADDONUAPLUS, CRP #### [address] Comprehensive Metabolic Pane tanika 11-19-2023 Albumin [Mass/Vol] 4.1 g/dL Normal 3.5-5.7 [facility] Comment on above: Performed By: #### E SR, ADDONUAPLUS, CBC, CMP, CRP #### [place] [address] [place] #### C4, C3, CH50 #### [facility] , GFR/1.73 sq M.predicted MDRD (S/P/Bld) [Vol rate/Area] mL/min/{1.73_m2} Normal [facility] Comment on above: Performed By: #### E SR, ADDONUAPLUS, CBC, CMP, CRP #### [address] #### C4, C3, CH50 #### [facility] , Creatinine [Mass/volume] in Serum or PlasmaOrdered By: Sabrina Manriquez on 11-19-2023 Creatinine [Mass/Vol] 0.97 mg/dL Normal 0.70-1.30 [facility] Comment on above: Performed By: #### E SR, ADDONUAPLUS, CBC, CMP, CRP #### [address] #### C4, C3, CH50 #### [facility] , Dipstick and Microscopicon 0 11-19-2023 Appearance (U) Clear Normal Clear [facility] Comment on above: Order Comment: Name Collection Type:: Clean-Voided Midstream Performed By: #### E SR, ADDONUAPLUS, CBC, CMP, CRP #### [place] [address] [place] #### C4, C3, CH50 #### [facility] , Bacteria,Urine None Seen Normal None Seen [facility] Comment on above: Order Comment: Name Collection Type:: Clean-Voided Midstream Performed By: #### E SR, ADDONUAPLUS, CBC, CMP, CRP #### [address] #### C4, C3, CH50 #### [facility] , Bilirubin,Urine Negative Normal Negative [facility] Comment on above: Order Comment: Name Collection Type:: Clean-Voided Midstream Performed By: #### E SR, ADDONUAPLUS, CBC, CMP, CRP #### [address] #### C4, C3, CH50 #### [facility] , Glucose Ql (U) Normal Normal Normal [facility] Comment on above: Order Comment: Name Collection Type:: Clean-Voided Midstream Performed By: #### E SR, ADDONUAPLUS, CBC, CMP, CRP #### [address] #### C4, C3, CH50 #### [facility] , Hyaline Casts,Urine None Seen Normal 0-8 [facility] Comment on above: Order Comment: Name Collection Type:: Clean-Voided Midstream Result Comment: PERF ORMED BY: [place] [address] PATHOLOGIST TRADING ASSISTANT KRISTIE BAKER M.D. Performed By: #### E SR, ADDONUAPLUS, CBC, CMP, CRP #### [address] #### C4, C3, CH50 #### [facility] , Ketones Ql (U) Negative Normal Negative [facility] Comment on above: Order Comment: Name Collection Type:: Clean-Voided Midstream Performed By: #### E SR, ADDONUAPLUS, CBC, CMP, CRP #### [address] #### C4, C3, CH50 #### [facility] , Leukocyte esterase Test strip Ql (U) Negative Normal Negative [facility] Comment on above: Order Comment: Name Collection Type:: Clean-Voided Midstream Performed By: #### E SR, ADDONUAPLUS, CBC, CMP, CRP #### [address] #### C4, C3, CH50 #### [facility] , Nitrite,Urine Negative Normal Negative [facility] Comment on above: Order Comment: Name Collection Type:: Clean-Voided Midstream Performed By: #### E SR, ADDONUAPLUS, CBC, CMP, CRP #### [address] #### C4, C3, CH50 #### [facility] , Occult Blood,Urine Negative Normal Negative [facility] Comment on above: Order Comment: Name Collection Type:: Clean-Voided Midstream Performed By: #### E SR, ADDONUAPLUS, CBC, CMP, CRP #### [address] #### C4, C3, CH50 #### [facility] , Protein,Urine Negative Normal Negative [facility] Comment on above: Order Comment: Name Collection Type:: Clean-Voided Midstream Performed By: #### E SR, ADDONUAPLUS, CBC, CMP, CRP #### [address] #### C4, C3, CH50 #### [facility] , RBC LM.HPF (Urine sed) [#/Area] 0 /[HPF] Normal 0-4 [facility] Comment on above: Order Comment: Name Collection Type:: Clean-Voided Midstream Performed By: #### E SR, ADDONUAPLUS, CBC, CMP, CRP #### [address] #### C4, C3, CH50 #### [facility] , Specificy [place],Urine 1.021 Normal 1.001-1.03 0 [facility] Comment on above: Order Comment: Name Collection Type:: Clean-Voided Midstream Performed By: #### E SR, ADDONUAPLUS, CBC, CMP, CRP #### [address] #### C4, C3, CH50 #### [facility] , Squamous Epithelial Cell,Urine None Seen Normal 0-2 [facility] Comment on above: Order Comment: Name Collection Type:: Clean-Voided Midstream Performed By: #### E SR, ADDONUAPLUS, CBC, CMP, CRP #### [address] #### C4, C3, CH50 #### [facility] , Urobilinogen,Urine Normal Normal Normal [facility] Comment on above: Order Comment: Name Collection Type:: Clean-Voided Midstream Performed By: #### E SR, ADDONUAPLUS, CBC, CMP, CRP #### [address] #### C4, C3, CH50 #### [facility] , WBC LM.HPF (Urine sed) [#/Area] 0 /[HPF] Normal 0-4 [facility] Comment on above: Order Comment: Name Collection Type:: Clean-Voided Midstream Performed By: #### E SR, ADDONUAPLUS, CBC, CMP, CRP #### [address] #### C4, C3, CH50 #### [facility] , Erythrocyte Sedimentation Ra natan 11-19-2023 ESR (Bld) [Velocity] 5 mm/h Normal 0-19 [facility] Comment on above: Result Comment: PERF ORMED BY: [place] [address] PATHOLOGIST TRADING ASSISTANT KRISTIE BAKER M.D. Performed By: #### C 4, C3, CH50 #### [facility] , #### CBC, CMP, ESR, ADDONUAPLUS, CRP #### [address] Erythrocyte distribution wid th [Ratio] by Automated countOrdered By: Sabrina Manriquez on 11-19-2023 Erythrocyte distribution width (RBC) [Ratio] 13.7 % Normal 12.0-14.8 [facility] Comment on above: Performed By: #### C 4, C3, CH50 #### [facility] , #### CBC, CMP, ESR, ADDONUAPLUS, CRP #### [address] Erythrocyte sedimentation ra te by Photometric methodOrdered By: Sabrina Manriquez on 11-19-2023 ESR Photometric method (Bld) [Velocity] 5 mm/hr 0-19 [facility] Erythrocytes [#/area] in Uri ne sediment by Automated countOrdered By: Sabrina Manriquez on 11-19-2023 RBC Auto (Urine sed) [#/Area] 0-1 [HPF] 0-4 [facility] Erythrocytes [#/volume] in B lood by Automated countOrdered By: Sabrina Manriquez on 11-19-2023 RBC (Bld) [#/Vol] 4.64 10*6/uL Normal 3.90-5.60 [facility] Comment on above: Performed By: #### C 4, C3, CH50 #### [facility] , #### CBC, CMP, ESR, ADDONUAPLUS, CRP #### [address] Glucose [Mass/volume] in Ser um or PlasmaOrdered By: Sabrina Manriquez on 11-19-2023 Glucose [Mass/Vol] 115 mg/dL High 70-100 [facility] Comment on above: ADA recommended refe rence rangeRandom Glucose Reference Range is dependent on time and content of last meal. Glucose of more than 200 mg/dL in a nonstressed, ambulatory subject supports the diagnosis of Diabetes Mellitus. Result Comment: [place] om Glucose Reference Range is dependent on time and content of last meal. Glucose of more than 200 mg/dL in a nonstressed, ambulatory subject supports the diagnosis of Diabetes Mellitus. ADA recommended reference range Performed By: #### E SR, ADDONUAPLUS, CBC, CMP, CRP #### [facility] [address] #### C4, C3, CH50 #### [facility] , Hematocrit [Volume Fraction] of Blood by Automated countOrdered By: Sabrina Manriquez on 11-19-2023 Hematocrit (Bld) [Volume fraction] 44.2 % Normal 38.8-50.0 [facility] Comment on above: Performed By: #### C 4, C3, CH50 #### [facility] , #### CBC, CMP, ESR, ADDONUAPLUS, CRP #### [facility] [address] [place] [address] Hemoglobin [Mass/volume] in BloodOrdered By: Sabrina Manriquez on 11-19-2023 Hemoglobin (Bld) [Mass/Vol] 15.0 g/dL Normal 13.0-17.0 [facility] Comment on above: Performed By: #### C 4, C3, CH50 #### [facility] , #### CBC, CMP, ESR, ADDONUAPLUS, CRP #### [facility] [address] [place] [address] Ketones Auto test strip (U) [Mass/Vol]Ordered By: Sabrina Manriquez on 11-19-2023 Ketones (U) [Mass/Vol] Negative Negative [facility] - UrinalysisOrder ed By: Sabrina Manriquez on 11-19-2023 Hyaline casts LM Ql (Urine sed) None seen [LPF] 0-8 [facility] Leukocytes [#/area] in Urine sediment by Automated countOrdered By: Sabrina Manriquez on 11-19-2023 WBC Auto (Urine sed) [#/Area] 0-1 [HPF] 0-4 [facility] Leukocytes [#/volume] correc leah for nucleated erythrocytes in Blood by Automated counOrdered By: Sabrina Manriquez on 11-19-2023 WBC corrected for nucl RBC Auto (Bld) [#/Vol] 5.7 10*3/uL 4.1-10.5 [facility] Leukocytes [#/volume] in Blo od by Automated countOrdered By: Sabrina Manriquez on 11-19-2023 WBC (Bld) [#/Vol] 5.7 10*3/uL Normal 4.1-10.5 [facility] Comment on above: Performed By: #### C 4, C3, CH50 #### [facility] , #### CBC, CMP, ESR, ADDONUAPLUS, CRP #### [place] [address] [place] Lymphocytes [#/volume] in Bl ood by Automated countOrdered By: Sabrina Manriquez on 11-19-2023 Lymphocytes (Bld) [#/Vol] 1.1 10*3/uL Normal 1.00-4.8 [facility] Comment on above: Performed By: #### C 4, C3, CH50 #### [facility] , #### CBC, CMP, ESR, ADDONUAPLUS, CRP #### [place] [address] [place] Lymphocytes/100 leukocytes i n Blood by Automated countOrdered By: Sabrina Manriquez on 11-19-2023 Lymphocytes/100 WBC (Bld) 18.8 % Normal . [facility] Comment on above: Performed By: #### C 4, C3, CH50 #### [facility] , #### CBC, CMP, ESR, ADDONUAPLUS, CRP #### [place] [address] [place] MCH [Entitic mass] by Automa leah countOrdered By: Sabrina Manriquez on 11-19-2023 MCH (RBC) [Entitic mass] 32.3 pg Normal 27.5-35.2 [facility] Comment on above: Performed By: #### C 4, C3, CH50 #### [facility] , #### CBC, CMP, ESR, ADDONUAPLUS, CRP #### [address] [place] [address] [place] MCHC Auto (RBC) [Mass/Vol]Or dered By: Sabrina Manriquez on 11-19-2023 MCHC (RBC) [Mass/Vol] 34.0 g/dL 32.5-35.6 [facility] MCV [Entitic volume] by Auto mated countOrdered By: Sabrina Manriquez on 11-19-2023 MCV (RBC) [Entitic vol] 95.2 fL Normal 83.5-101 [facility] Comment on above: Performed By: #### C 4, C3, CH50 #### [facility] , #### CBC, CMP, ESR, ADDONUAPLUS, CRP #### [address] Neutrophils [#/volume] in Bl ood by Automated countOrdered By: Sabrina Manriquez on 11-19-2023 Neutrophils (Bld) [#/Vol] 4.1 10*3/uL Normal 1.8-7.7 [facility] Comment on above: Performed By: #### C 4, C3, CH50 #### [facility] , #### CBC, CMP, ESR, ADDONUAPLUS, CRP #### [address] Nitrite Test strip Ql (U)Ord ered By: Sabrina Manriquez on 11-19-2023 Nitrite Ql (U) Negative Negative [facility] No Panel InformationOrdered By: Sabrina Manriquez on 11-19-2023 Estimated GFR (CKD-EPI) > 60.0 mL/Min [facility] Creatinine Clearance (Chem N/A [facility] Nucleated erythrocytes [Pres ence] in Blood by Automated countOrdered By: Sabrina Manriquez on 11-19-2023 Nucleated RBC Auto Ql (Bld) 0.1 /100{WBC} 0-0.5 [facility] Platelet mean volume [Entiti c volume] in Blood by Automated countOrdered By: Sabrina Manriquez on 05-28-2024 Platelet mean volume (Bld) [Entitic vol] 9.3 fL Normal 6.6-10.1 [facility] Comment on above: Performed By: #### C 4, C3, CH50 #### [facility] , #### CBC, CMP, ESR, ADDONUAPLUS, CRP #### [address] Platelets [#/volume] in Bloo d by Automated countOrdered By: Sabrina Manriquez on 11-19-2023 Platelets (Bld) [#/Vol] 220 10*3/uL Normal 150-450 [facility] Comment on above: Performed By: #### C 4, C3, CH50 #### [facility] , #### CBC, CMP, ESR, ADDONUAPLUS, CRP #### [address] Potassium [Moles/volume] in Serum or PlasmaOrdered By: Sabrina Manriquez on 11-19-2023 Potassium [Moles/Vol] 4.4 mmol/L Normal 3.5-5.1 [facility] Comment on above: Performed By: #### E SR, ADDONUAPLUS, CBC, CMP, CRP #### [address] #### C4, C3, CH50 #### [facility] , Protein Auto test strip (U) [Mass/Vol]Ordered By: Sabrina Manriquez on 11-19-2023 Protein (U) [Mass/Vol] Negative Negative [facility] Protein [Mass/volume] in Ser um or PlasmaOrdered By: Sabrina Manriquez on 11-19-2023 Protein [Mass/Vol] 6.7 g/dL Normal 6.4-8.9 [facility] Comment on above: Performed By: #### E SR, ADDONUAPLUS, CBC, CMP, CRP #### [place] [address] [place] #### C4, C3, CH50 #### [facility] , Serum globulin measurement b y calculation (mass/volume)Ordered By: Sabrina Manriquez on 11-19-2023 Globulin (S) [Mass/Vol] 2.6 g/dL [facility] Comment on above: Performed By: #### E SR, ADDONUAPLUS, CBC, CMP, CRP #### [place] [address] [place] #### C4, C3, CH50 #### [facility] , Serum or plasma albumin/glob ulin mass ratioOrdered By: Sabrina Manriquez on 11-19-2023 Albumin/Globulin [Mass ratio] 1.6 {ratio} [facility] Comment on above: Performed By: #### E SR, ADDONUAPLUS, CBC, CMP, CRP #### [address] #### C4, C3, CH50 #### [facility] , Serum or plasma anion gap de terminationOrdered By: Sabrina Manriquez on 11-19-2023 Anion gap [Moles/Vol] 9.2 mmol/L Normal 6.0-15.0 [facility] Comment on above: Performed By: #### E SR, ADDONUAPLUS, CBC, CMP, CRP #### [place] [address] [place] #### C4, C3, CH50 #### [facility] , Sodium [Moles/volume] in Ser um or PlasmaOrdered By: Sabrina Manriquez on 11-19-2023 Sodium [Moles/Vol] 140 mmol/L Normal 136-145 [facility] Comment on above: Performed By: #### E SR, ADDONUAPLUS, CBC, CMP, CRP #### [place] [address] [place] #### C4, C3, CH50 #### [facility] , Specific gravity Auto test s trip (U) [Rel density]Ordered By: Sabrina Manriquez on 11-19-2023 Specific gravity (U) [Rel density] 1.021 1.001-1.03 0 [facility] Urea nitrogen [Mass/volume] in Serum or PlasmaOrdered By: Sabrina Manriquez on 11-19-2023 Urea nitrogen [Mass/Vol] 17 mg/dL Normal 7-25 [facility] Comment on above: Performed By: #### E SR, ADDONUAPLUS, CBC, CMP, CRP #### [facility] [address] [place] [address] #### C4, C3, CH50 #### [facility] , Urine clarity by refractomet ry automatedOrdered By: Sabrina Manriquez on 11-19-2023 Clarity Refractometry automated (U) Clear Clear [facility] Urine glucose measurement by automated test strip (mass/volume)Ordered By: Sabrina Manriquez on 11-19-2023 Glucose Auto test strip (U) [Mass/Vol] Normal mg/dL Normal [facility] Urine hemoglobin detection b y automated test stripOrdered By: Sabrina Manriquez on 11-19-2023 Hemoglobin Auto test strip Ql (U) Negative Negative [facility] Urine leukocyte esterase det ection by automated test stripOrdered By: Sabrina Manriquez on 11-19-2023 Leukocyte esterase Auto test strip Ql (U) Negative Negative [facility] Urine pH measurement by auto mated test stripOrdered By: Sabrina Manriquez on 11-19-2023 pH (U) 5.5 [pH] Normal 5.0-9.0 [facility] Comment on above: Order Comment: Name Collection Type:: Clean-Voided Midstream Performed By: #### E SR, ADDONUAPLUS, CBC, CMP, CRP #### [facility] [address] [place] [address] [place] #### C4, C3, CH50 #### [facility] , Urobilinogen Auto test strip (U) [Mass/Vol]Ordered By: Sabrina Manriquez on 11-19-2023 Urobilinogen (U) [Mass/Vol] Normal mg/dL Normal [facility] Alanine aminotransferase [En zymatic activity/volume] in Serum or PlasmaOrdered By: Sabrina Manriquez on 07-18-2023 ALT [Catalytic activity/Vol] 32 U/L Normal 7-52 [facility] Comment on above: Performed By: #### C 4, C3, CH50 #### [facility] , #### CBC, CMP, ESR, ADDONUAPLUS, CRP #### [facility] [address] Albumin [Mass/volume] in Ser um or Plasma by Bromocresol green (BCG) dye binding methoOrdered By: Sabrina Manriquez on 07-18-2023 Albumin BCG dye [Mass/Vol] 4.3 g/dL 3.5-5.7 [facility] Alkaline phosphatase [Enzyma tic activity/volume] in Serum or PlasmaOrdered By: Sabrina Manriquez on 07-18-2023 ALP [Catalytic activity/Vol] 78 U/L Normal 34-104 [facility] Comment on above: Performed By: #### C 4, C3, CH50 #### [facility] , #### CBC, CMP, ESR, ADDONUAPLUS, CRP #### [facility] [address] [place] [address] Aspartate aminotransferase [ Enzymatic activity/volume] in Serum or PlasmaOrdered By: Sabrina Manriquez on 07-18-2023 AST [Catalytic activity/Vol] 28 U/L Normal 13-39 [facility] Comment on above: Performed By: #### C 4, C3, CH50 #### [facility] , #### CBC, CMP, ESR, ADDONUAPLUS, CRP #### [facility] [address] [place] [address] [place] Automated basophil %Ordered By: Sabrina Manriquez on 07-18-2023 Basophils/100 WBC (Bld) 0.8 % Normal . [facility] Comment on above: Performed By: #### C 4, C3, CH50 #### [facility] , #### CBC, CMP, ESR, ADDONUAPLUS, CRP #### [facility] [address] Automated basophil countOrde red By: Sabrina Manriquez on 07-18-2023 Basophils (Bld) [#/Vol] 0.1 10*3/uL Normal 0.0-0.2 [facility] Comment on above: Performed By: #### C 4, C3, CH50 #### [facility] , #### CBC, CMP, ESR, ADDONUAPLUS, CRP #### [address] Automated blood monocyte cou ntOrdered By: Sabrina Manriquez on 07-18-2023 Monocytes (Bld) [#/Vol] 0.6 10*3/uL Normal 0.0-0.8 [facility] Comment on above: Performed By: #### C 4, C3, CH50 #### [facility] , #### CBC, CMP, ESR, ADDONUAPLUS, CRP #### [address] Automated eosinophil %Ordere d By: Sabrina Manriquez on 07-18-2023 Eosinophils/100 WBC (Bld) 0.7 % Normal . [facility] Comment on above: Performed By: #### C 4, C3, CH50 #### [facility] , #### CBC, CMP, ESR, ADDONUAPLUS, CRP #### [address] Automated eosinophil countOr dered By: Sabrina Manriquez on 07-18-2023 Eosinophils (Bld) [#/Vol] 0.0 10*3/uL Normal 0.0-0.45 [facility] Comment on above: Performed By: #### C 4, C3, CH50 #### [facility] , #### CBC, CMP, ESR, ADDONUAPLUS, CRP #### [address] Automated erythrocytes count in urine sediment (number/area)Ordered By: Sabrina Manriquez on 07-18-2023 RBC Auto (Urine sed) [#/Area] 0-1 [HPF] 0-4 [facility] Automated leukocytes count i n urine sediment (number/area)Ordered By: Sabrina Manriquez on 07-18-2023 WBC Auto (Urine sed) [#/Area] 0-1 [HPF] 0-4 [facility] Automated monocyte %Ordered By: Sabrina Manriquez on 07-18-2023 Monocytes/100 WBC (Bld) 8.9 % Normal . [facility] Comment on above: Performed By: #### C 4, C3, CH50 #### [facility] , #### CBC, CMP, ESR, ADDONUAPLUS, CRP #### [address] Automated neutrophil %Ordere d By: Sabrina Manriquez on 07-18-2023 Neutrophils/100 WBC (Bld) 74.5 % Normal . [facility] Comment on above: Performed By: #### C 4, C3, CH50 #### [facility] , #### CBC, CMP, ESR, ADDONUAPLUS, CRP #### [address] Automated urine color determ inationOrdered By: Sabrina Manriquez on 07-18-2023 Color (U) Yellow Normal Yellow [facility] Comment on above: Order Comment: Name Collection Type:: Clean-Voided Midstream Performed By: #### C 4, C3, CH50 #### [facility] , #### CBC, CMP, ESR, ADDONUAPLUS, CRP #### [address] Bilirubin Test strip Ql (U)O rdered By: Sabrina Manriquez on 07-18-2023 Bilirubin Ql (U) Negative Negative [facility] Bilirubin.total [Mass/volume ] in Serum or PlasmaOrdered By: Sabrina Manriquez on 07-18-2023 Bilirubin [Mass/Vol] 0.5 mg/dL Normal 0.3-1.0 [facility] Comment on above: Performed By: #### C 4, C3, CH50 #### [facility] , #### CBC, CMP, ESR, ADDONUAPLUS, CRP #### [facility] [address] [place] [address] [place] C reactive protein [Mass/vol ume] in Serum or PlasmaOrdered By: Sabrina Manriquez on 07-18-2023 CRP [Mass/Vol] < 0.5 mg/dL 0.0-0.5 [facility] C-Reactive Proteinon 024 CRP [Mass/Vol] mg/L Normal 0.0-0.5 [facility] Comment on above: Result Comment: PERF ORMED BY: [place] [address] PATHOLOGIST TRADING ASSISTANT KRISTIE BAKER M.D. Performed By: #### C 4, C3, CH50 #### [facility] , #### CBC, CMP, ESR, ADDONUAPLUS, CRP #### [place] [address] [place] Calcium [Mass/volume] in Ser um or PlasmaOrdered By: Sabrina Manriquez on 07-18-2023 Calcium [Mass/Vol] 9.2 mg/dL Normal 8.6-10.3 [facility] Comment on above: Performed By: #### C 4, C3, CH50 #### [facility] , #### CBC, CMP, ESR, ADDONUAPLUS, CRP #### [address] Carbon dioxide, total [Moles /volume] in Serum or PlasmaOrdered By: Sabrina Manriquez on 07-18-2023 CO2 [Moles/Vol] 30.1 mmol/L Normal 21.0-31.0 [facility] Comment on above: Performed By: #### C 4, C3, CH50 #### [facility] , #### CBC, CMP, ESR, ADDONUAPLUS, CRP #### [facility] [address] [place] [address] Chloride [Moles/volume] in S lenny or PlasmaOrdered By: Sabrina Manriquez on 07-18-2023 Chloride [Moles/Vol] 105 mmol/L Normal 98-107 [facility] Comment on above: Performed By: #### C 4, C3, CH50 #### [facility] , #### CBC, CMP, ESR, ADDONUAPLUS, CRP #### [facility] [address] [place] [address] Complement C3on 07-18-2023 Complement C3 118 mg/dL Normal 82-167 [facility] Comment on above: Result Comment: Perf ormed at: - [facility] [address] [id number] Supervisor Volunteer Services: Derek Toscano PhD, Phone: [phone] Performed By: #### C 4, C3, CH50 #### [facility] , #### CBC, CMP, ESR, ADDONUAPLUS, CRP #### [address] Complement C4on 07-18-2023 Complement C4 23 mg/dL Normal 12-38 [facility] Comment on above: Result Comment: PERF ORMED BY: [place] [address] PATHOLOGIST TRADING ASSISTANT KRISTIE BAKER M.D. Performed By: #### C 4, C3, CH50 #### [facility] , #### CBC, CMP, ESR, ADDONUAPLUS, CRP #### [address] Complement Total (CH50)on Complement Total (CH50) 51 Normal >41 [facility] Comment on above: Result Comment: [...] out of range values. Performed at: - [facility] [id number] Supervisor Volunteer Services: Derek Toscano PhD, Phone: [phone] PERFORMED BY: [place] [address] PATHOLOGIST TRADING ASSISTANT KRISTIE BAKER M.D. Performed By: #### C 4, C3, CH50 #### [facility] , #### CBC, CMP, ESR, ADDONUAPLUS, CRP #### [address] Complete Blood Count Auto Di ffon 07-18-2023 Mean Corpuscular HGB Conc 34.2 g/dL Normal 32.5-35.6 [facility] Comment on above: Performed By: #### C 4, C3, CH50 #### [facility] , #### CBC, CMP, ESR, ADDONUAPLUS, CRP #### [address] NRBC% 0.1 /100{WBC} Normal 0-0.5 [facility] Comment on above: Performed By: #### C 4, C3, CH50 #### [facility] , #### CBC, CMP, ESR, ADDONUAPLUS, CRP #### [address] Comprehensive Metabolic Pane tanika 07-18-2023 Albumin [Mass/Vol] 4.3 g/dL Normal 3.5-5.7 [facility] Comment on above: Performed By: #### C 4, C3, CH50 #### [facility] , #### CBC, CMP, ESR, ADDONUAPLUS, CRP #### [address] GFR/1.73 sq M.predicted MDRD (S/P/Bld) [Vol rate/Area] mL/min/{1.73_m2} Normal [facility] Comment on above: Performed By: #### C 4, C3, CH50 #### [facility] , #### CBC, CMP, ESR, ADDONUAPLUS, CRP #### [address] Creatinine [Mass/volume] in Serum or PlasmaOrdered By: Sabrina Manriquez on 07-18-2023 Creatinine [Mass/Vol] 0.93 mg/dL Normal 0.70-1.30 [facility] Comment on above: Performed By: #### C 4, C3, CH50 #### [facility] , #### CBC, CMP, ESR, ADDONUAPLUS, CRP #### [place] [address] [place] Dipstick and Microscopicon 0 07-18-2023 Appearance (U) Clear Normal Clear [facility] Comment on above: Order Comment: Name Collection Type:: Clean-Voided Midstream Performed By: #### C 4, C3, CH50 #### [facility] , #### CBC, CMP, ESR, ADDONUAPLUS, CRP #### [place] [address] [place] Bacteria,Urine None Seen Normal None Seen [facility] Comment on above: Order Comment: Name Collection Type:: Clean-Voided Midstream Performed By: #### C 4, C3, CH50 #### [facility] , #### CBC, CMP, ESR, ADDONUAPLUS, CRP #### [place] [address] [place] Bilirubin,Urine Negative Normal Negative [facility] Comment on above: Order Comment: Name Collection Type:: Clean-Voided Midstream Performed By: #### C 4, C3, CH50 #### [facility] , #### CBC, CMP, ESR, ADDONUAPLUS, CRP #### [address] Glucose Ql (U) Normal Normal Normal [facility] Comment on above: Order Comment: Name Collection Type:: Clean-Voided Midstream Performed By: #### C 4, C3, CH50 #### [facility] , #### CBC, CMP, ESR, ADDONUAPLUS, CRP #### [address] Hyaline Casts,Urine None Seen Normal 0-8 [facility] Comment on above: Order Comment: Name Collection Type:: Clean-Voided Midstream Result Comment: PERF ORMED BY: [place] [address] PATHOLOGIST TRADING ASSISTANT KRISTIE BAKER M.D. Performed By: #### C 4, C3, CH50 #### [facility] , #### CBC, CMP, ESR, ADDONUAPLUS, CRP #### [address] Ketones Ql (U) Trace High Negative [facility] Comment on above: Order Comment: Name Collection Type:: Clean-Voided Midstream Performed By: #### C 4, C3, CH50 #### [facility] , #### CBC, CMP, ESR, ADDONUAPLUS, CRP #### [address] Leukocyte esterase Test strip Ql (U) Negative Normal Negative [facility] Comment on above: Order Comment: Name Collection Type:: Clean-Voided Midstream Performed By: #### C 4, C3, CH50 #### [facility] , #### CBC, CMP, ESR, ADDONUAPLUS, CRP #### [place] [address] [place] Nitrite,Urine Negative Normal Negative [facility] Comment on above: Order Comment: Name Collection Type:: Clean-Voided Midstream Performed By: #### C 4, C3, CH50 #### [facility] , #### CBC, CMP, ESR, ADDONUAPLUS, CRP #### [address] Occult Blood,Urine Negative Normal Negative [facility] Comment on above: Order Comment: Name Collection Type:: Clean-Voided Midstream Performed By: #### C 4, C3, CH50 #### [facility] , #### CBC, CMP, ESR, ADDONUAPLUS, CRP #### [address] Protein,Urine Negative Normal Negative [facility] Comment on above: Order Comment: Name Collection Type:: Clean-Voided Midstream Performed By: #### C 4, C3, CH50 #### [facility] , #### CBC, CMP, ESR, ADDONUAPLUS, CRP #### [address] RBC LM.HPF (Urine sed) [#/Area] 0 /[HPF] Normal 0-4 [facility] Comment on above: Order Comment: Name Collection Type:: Clean-Voided Midstream Performed By: #### C 4, C3, CH50 #### [facility] , #### CBC, CMP, ESR, ADDONUAPLUS, CRP #### [place] [address] [place] Specificy [place],Urine 1.023 Normal 1.001-1.03 0 [facility] Comment on above: Order Comment: Name Collection Type:: Clean-Voided Midstream Performed By: #### C 4, C3, CH50 #### [facility] , #### CBC, CMP, ESR, ADDONUAPLUS, CRP #### [address] Squamous Epithelial Cell,Urine None Seen Normal 0-2 [facility] Comment on above: Order Comment: Name Collection Type:: Clean-Voided Midstream Performed By: #### C 4, C3, CH50 #### [facility] , #### CBC, CMP, ESR, ADDONUAPLUS, CRP #### [address] Urobilinogen,Urine Normal Normal Normal [facility] Comment on above: Order Comment: Name Collection Type:: Clean-Voided Midstream Performed By: #### C 4, C3, CH50 #### [facility] , #### CBC, CMP, ESR, ADDONUAPLUS, CRP #### [address] WBC LM.HPF (Urine sed) [#/Area] 0 /[HPF] Normal 0-4 [facility] Comment on above: Order Comment: Name Collection Type:: Clean-Voided Midstream Performed By: #### C 4, C3, CH50 #### [facility] , #### CBC, CMP, ESR, ADDONUAPLUS, CRP #### [address] Erythrocyte Sedimentation Ra natan 07-18-2023 ESR (Bld) [Velocity] 7 mm/h Normal 0-19 [facility] Comment on above: Result Comment: PERF ORMED BY: [place] [address] PATHOLOGIST TRADING ASSISTANT KRISTIE BAKER M.D. Performed By: #### C 4, C3, CH50 #### [facility] , #### CBC, CMP, ESR, ADDONUAPLUS, CRP #### [address] Erythrocyte distribution wid th [Ratio] by Automated countOrdered By: Sabrina Manriquez on 07-18-2023 Erythrocyte distribution width (RBC) [Ratio] 13.9 % Normal 12.0-14.8 [facility] Comment on above: Performed By: #### C 4, C3, CH50 #### [facility] , #### CBC, CMP, ESR, ADDONUAPLUS, CRP #### [facility] [address] Erythrocyte sedimentation ra te by Photometric methodOrdered By: Sabrina Manriquez on 07-18-2023 ESR Photometric method (Bld) [Velocity] 7 mm/hr 0-19 [facility] Erythrocytes [#/volume] in B lood by Automated countOrdered By: Sabrina Manriquez on 07-18-2023 RBC (Bld) [#/Vol] 4.69 10*6/uL Normal 3.90-5.60 [facility] Comment on above: Performed By: #### C 4, C3, CH50 #### [facility] , #### CBC, CMP, ESR, ADDONUAPLUS, CRP #### [place] [address] [place] Glucose [Mass/volume] in Ser um or PlasmaOrdered By: Sabrina Manriquez on 07-18-2023 Glucose [Mass/Vol] 89 mg/dL Normal 70-100 [facility] Comment on above: ADA recommended refe rence rangeRandom Glucose Reference Range is dependent on time and content of last meal. Glucose of more than 200 mg/dL in a nonstressed, ambulatory subject supports the diagnosis of Diabetes Mellitus. Result Comment: [place] om Glucose Reference Range is dependent on time and content of last meal. Glucose of more than 200 mg/dL in a nonstressed, ambulatory subject supports the diagnosis of Diabetes Mellitus. ADA recommended reference range Performed By: #### C 4, C3, CH50 #### [facility] , #### CBC, CMP, ESR, ADDONUAPLUS, CRP #### [facility] [address] [place] [address] [place] Hematocrit [Volume Fraction] of Blood by Automated countOrdered By: Sabrina Manriquez on 07-18-2023 Hematocrit (Bld) [Volume fraction] 44.3 % Normal 38.8-50.0 [facility] Comment on above: Performed By: #### C 4, C3, CH50 #### [facility] , #### CBC, CMP, ESR, ADDONUAPLUS, CRP #### [facility] [address] Hemoglobin [Mass/volume] in BloodOrdered By: Sabrina Manriquez on 07-18-2023 Hemoglobin (Bld) [Mass/Vol] 15.2 g/dL Normal 13.0-17.0 [facility] Comment on above: Performed By: #### C 4, C3, CH50 #### [facility] , #### CBC, CMP, ESR, ADDONUAPLUS, CRP #### [facility] [address] Ketones Auto test strip (U) [Mass/Vol]Ordered By: Sabrina Manriquez on 07-18-2023 Ketones (U) [Mass/Vol] Trace Negative [facility] - UrinalysisOrder ed By: Sabrina Manriquez on 07-18-2023 Hyaline casts LM Ql (Urine sed) None seen [LPF] 0-8 [facility] Leukocytes [#/volume] correc leah for nucleated erythrocytes in Blood by Automated counOrdered By: Sabrina Manriquez on 07-18-2023 WBC corrected for nucl RBC Auto (Bld) [#/Vol] 6.3 10*3/uL 4.1-10.5 [facility] Leukocytes [#/volume] in Blo od by Automated countOrdered By: Sabrina Manriquez on 07-18-2023 WBC (Bld) [#/Vol] 6.3 10*3/uL Normal 4.1-10.5 [facility] Comment on above: Performed By: #### C 4, C3, CH50 #### [facility] , #### CBC, CMP, ESR, ADDONUAPLUS, CRP #### [facility] [address] Lymphocytes [#/volume] in Bl ood by Automated countOrdered By: Sabrina Manriquez on 07-18-2023 Lymphocytes (Bld) [#/Vol] 0.9 10*3/uL Low 1.00-4.8 [facility] Comment on above: Performed By: #### C 4, C3, CH50 #### [facility] , #### CBC, CMP, ESR, ADDONUAPLUS, CRP #### [address] Lymphocytes/100 leukocytes i n Blood by Automated countOrdered By: Sabrina Manriquez on 07-18-2023 Lymphocytes/100 WBC (Bld) 15.1 % Normal . [facility] Comment on above: Performed By: #### C 4, C3, CH50 #### [facility] , #### CBC, CMP, ESR, ADDONUAPLUS, CRP #### [address] MCH [Entitic mass] by Automa leah countOrdered By: Sabrina Manriquez on 07-18-2023 MCH (RBC) [Entitic mass] 32.3 pg Normal 27.5-35.2 [facility] Comment on above: Performed By: #### C 4, C3, CH50 #### [facility] , #### CBC, CMP, ESR, ADDONUAPLUS, CRP #### [address] MCHC Auto (RBC) [Mass/Vol]Or dered By: Sabrina Manriquez on 07-18-2023 MCHC (RBC) [Mass/Vol] 34.2 g/dL 32.5-35.6 [facility] MCV [Entitic volume] by Auto mated countOrdered By: Sabrina Manriquez on 07-18-2023 MCV (RBC) [Entitic vol] 94.4 fL Normal 83.5-101 [facility] Comment on above: Performed By: #### C 4, C3, CH50 #### [facility] , #### CBC, CMP, ESR, ADDONUAPLUS, CRP #### [facility] [facility] [address] [place] [address] Neutrophils [#/volume] in Bl ood by Automated countOrdered By: Sabrina Manriquez on 07-18-2023 Neutrophils (Bld) [#/Vol] 4.7 10*3/uL Normal 1.8-7.7 [facility] Comment on above: Performed By: #### C 4, C3, CH50 #### [facility] , #### CBC, CMP, ESR, ADDONUAPLUS, CRP #### [address] Nitrite Test strip Ql (U)Ord ered By: Sabrina Manriquez on 07-18-2023 Nitrite Ql (U) Negative Negative [facility] No Panel InformationOrdered By: Sabrina Manriquez on 07-18-2023 Estimated GFR (CKD-EPI) > 60.0 mL/Min [facility] Creatinine Clearance (Chem N/A [facility] Nucleated erythrocytes [Pres ence] in Blood by Automated countOrdered By: Sabrina Manriquez on 07-18-2023 Nucleated RBC Auto Ql (Bld) 0.1 /100{WBC} 0-0.5 [facility] Platelet mean volume [Entiti c volume] in Blood by Automated countOrdered By: Sabrina Manriquez on 07-18-2023 Platelet mean volume (Bld) [Entitic vol] 8.8 fL Normal 6.6-10.1 [facility] Comment on above: Performed By: #### C 4, C3, CH50 #### [facility] , #### CBC, CMP, ESR, ADDONUAPLUS, CRP #### [facility] [address] [place] [address] Platelets [#/volume] in Bloo d by Automated countOrdered By: Sabrina Manriquez on 07-18-2023 Platelets (Bld) [#/Vol] 235 10*3/uL Normal 150-450 [facility] Comment on above: Performed By: #### C 4, C3, CH50 #### [facility] , #### CBC, CMP, ESR, ADDONUAPLUS, CRP #### [facility] [address] Potassium [Moles/volume] in Serum or PlasmaOrdered By: Sabrina Manriquez on 07-18-2023 Potassium [Moles/Vol] 4.1 mmol/L Normal 3.5-5.1 [facility] Comment on above: Performed By: #### C 4, C3, CH50 #### [facility] , #### CBC, CMP, ESR, ADDONUAPLUS, CRP #### [address] Protein Auto test strip (U) [Mass/Vol]Ordered By: Sabrina Manriquez on 07-18-2023 Protein (U) [Mass/Vol] Negative Negative [facility] Protein [Mass/volume] in Ser um or PlasmaOrdered By: Sabrina Manriquez on 07-18-2023 Protein [Mass/Vol] 6.8 g/dL Normal 6.4-8.9 [facility] Comment on above: Performed By: #### C 4, C3, CH50 #### [facility] , #### CBC, CMP, ESR, ADDONUAPLUS, CRP #### [address] Serum globulin measurement b y calculation (mass/volume)Ordered By: Sabrina Manriquez on 07-18-2023 Globulin (S) [Mass/Vol] 2.5 g/dL Normal [facility] Comment on above: Performed By: #### C 4, C3, CH50 #### [facility] , #### CBC, CMP, ESR, ADDONUAPLUS, CRP #### [facility] [address] Serum or plasma albumin/glob ulin mass ratioOrdered By: Sabrina Manriquez on 07-18-2023 Albumin/Globulin [Mass ratio] 1.7 {ratio} Normal [facility] Comment on above: Performed By: #### C 4, C3, CH50 #### [facility] , #### CBC, CMP, ESR, ADDONUAPLUS, CRP #### [address] Serum or plasma anion gap de terminationOrdered By: Sabrina Manriquez on 07-18-2023 Anion gap [Moles/Vol] 9.0 mmol/L Normal 6.0-15.0 [facility] Comment on above: Performed By: #### C 4, C3, CH50 #### [facility] , #### CBC, CMP, ESR, ADDONUAPLUS, CRP #### [address] Sodium [Moles/volume] in Ser um or PlasmaOrdered By: Sabrina Manriquez on 07-18-2023 Sodium [Moles/Vol] 140 mmol/L Normal 136-145 [facility] Comment on above: Performed By: #### C 4, C3, CH50 #### [facility] , #### CBC, CMP, ESR, ADDONUAPLUS, CRP #### [address] Specific gravity Auto test s trip (U) [Rel density]Ordered By: Sabrina Manriuqez on 07-18-2023 Specific gravity (U) [Rel density] 1.023 1.001-1.03 0 [facility] Squamous epithelial cells de tection in urine sediment by light microscopyOrdered By: Sabrina Manriquez on 07-18-2023 Epithelial cells.squamous LM Ql (Urine sed) None seen [HPF] 0-2 [facility] Urea nitrogen [Mass/volume] in Serum or PlasmaOrdered By: Sabrina Manriquez on 07-18-2023 Urea nitrogen [Mass/Vol] 22 mg/dL Normal 7-25 [facility] Comment on above: Performed By: #### C 4, C3, CH50 #### [facility] , #### CBC, CMP, ESR, ADDONUAPLUS, CRP #### [facility] [address] [place] [address] [place] Urine bacteria detection by automated methodOrdered By: Sabrina Manriquez on 07-18-2023 Bacteria Auto Ql (U) None seen None Seen [facility] Urine clarity by refractomet ry automatedOrdered By: Sabrina Manriquez on 07-18-2023 Clarity Refractometry automated (U) Clear Clear [facility] Urine glucose measurement by automated test strip (mass/volume)Ordered By: Sabrina Manriquez on 07-18-2023 Glucose Auto test strip (U) [Mass/Vol] Normal mg/dL Normal [facility] Urine hemoglobin detection b y automated test stripOrdered By: Sabrina Manriquez on 07-18-2023 Hemoglobin Auto test strip Ql (U) Negative Negative [facility] Urine leukocyte esterase det ection by automated test stripOrdered By: Sabrina Manriquez on 07-18-2023 Leukocyte esterase Auto test strip Ql (U) Negative Negative [facility] Urine pH measurement by auto mated test stripOrdered By: Sabrina Manriquez on 07-18-2023 pH (U) 5.5 [pH] Normal 5.0-9.0 [facility] Comment on above: Order Comment: Name Collection Type:: Clean-Voided Midstream Performed By: #### C 4, C3, CH50 #### [facility] , #### CBC, CMP, ESR, ADDONUAPLUS, CRP #### [facility] [address] [place] [address] [place] Urobilinogen Auto test strip (U) [Mass/Vol]Ordered By: Sabrina Manriquez on 07-18-2023 Urobilinogen (U) [Mass/Vol] Normal mg/dL Normal [facility] CNOVon 03-12-2023 CNOV Office Visit (ORFTMN ) -------- JAY CARR ([id number]) 1960 M Date Time Provider Department 03/12/23 [...] No PCP: Audrey Armstrong MD [address] [facility] [id number] FELLOW / RESIDENT: No fellow or resident assisted in th (more content not included)... Normal [facility] Alanine aminotransferase [En zymatic activity/volume] in Serum or PlasmaOrdered By: Hudson De Leon on 02-19-2023 ALT [Catalytic activity/Vol] 24 U/L 7-52 [facility] Albumin [Mass/volume] in Ser um or Plasma by Bromocresol green (BCG) dye binding methoOrdered By: Hudson De Leon on 02-19-2023 Albumin BCG dye [Mass/Vol] 4.1 g/dL 3.5-5.7 [facility] Alkaline phosphatase [Enzyma tic activity/volume] in Serum or PlasmaOrdered By: Hudson De Leon on 02-19-2023 ALP [Catalytic activity/Vol] 90 U/L 34-104 [facility] Aspartate aminotransferase [ Enzymatic activity/volume] in Serum or PlasmaOrdered By: Hudson De Leon on 02-19-2023 AST [Catalytic activity/Vol] 27 U/L 13-39 [facility] Automated erythrocytes count in urine sediment (number/area)Ordered By: Hudson De Leon on 02-19-2023 RBC Auto (Urine sed) [#/Area] 0-1 [HPF] 0-4 [facility] Automated leukocytes count i n urine sediment (number/area)Ordered By: Hudson De Leon on 02-19-2023 WBC Auto (Urine sed) [#/Area] None seen [HPF] 0-4 [facility] Basophils Auto (Bld) [#/Vol] Ordered By: Hudson De Leon on 02-19-2023 Basophils (Bld) [#/Vol] 0.0 10*3/uL 0.0-0.2 [facility] Basophils/100 WBC Auto (Bld) Ordered By: Hudson De Leon on 02-19-2023 Basophils/100 WBC (Bld) 0.7 % . [facility] Bilirubin Test strip Ql (U)O rdered By: Hudson De Leon on 02-19-2023 Bilirubin Ql (U) Negative Negative [facility] Bilirubin.total [Mass/volume ] in Serum or PlasmaOrdered By: Hudson De Leon on 02-19-2023 Bilirubin [Mass/Vol] 0.6 mg/dL 0.3-1.0 [facility] Calcium [Mass/volume] in Ser um or PlasmaOrdered By: Hudson De Leon on 02-19-2023 Calcium [Mass/Vol] 9.0 mg/dL 8.6-10.3 [facility] Carbon dioxide, total [Moles /volume] in Serum or PlasmaOrdered By: Hudson De Leon on 02-19-2023 CO2 [Moles/Vol] 29.6 mmol/L 21.0-31.0 [facility] Chloride [Moles/volume] in S lenny or PlasmaOrdered By: Hudson De Leon on 02-19-2023 Chloride [Moles/Vol] 105 mmol/L 98-107 [facility] Color Auto (U)Ordered By: Jessica De Leon on 02-19-2023 Color (U) Yellow Yellow [facility] Creatinine [Mass/volume] in Serum or PlasmaOrdered By: Hudson De Leon on 02-19-2023 Creatinine [Mass/Vol] 0.95 mg/dL 0.70-1.30 [facility] Eosinophils Auto (Bld) [#/Vo l]Ordered By: Hudson De Leon on 02-19-2023 Eosinophils (Bld) [#/Vol] 0.0 10*3/uL 0.0-0.45 [facility] Eosinophils/100 WBC Auto (Bl d)Ordered By: Hudson De Leon on 02-19-2023 Eosinophils/100 WBC (Bld) 1.0 % . [facility] Erythrocyte distribution wid th Auto (RBC) [Ratio]Ordered By: Hudson De Leon on 02-19-2023 Erythrocyte distribution width (RBC) [Ratio] 13.6 % 12.0-14.8 [facility] Erythrocyte sedimentation ra te by Photometric methodOrdered By: Hudson De Leon on 02-19-2023 ESR Photometric method (Bld) [Velocity] 7 mm/hr 0-19 [facility] Globulin Calc (S) [Mass/Vol] Ordered By: Hudson De Leon on 02-19-2023 Globulin (S) [Mass/Vol] 2.6 g/dL [facility] Glucose [Mass/volume] in Ser um or PlasmaOrdered By: Hudson De Leon on 02-19-2023 Glucose [Mass/Vol] 108 mg/dL 70-100 [facility] Comment on above: ADA recommended refe rence rangeRandom Glucose Reference Range is dependent on time and content of last meal. Glucose of more than 200 mg/dL in a nonstressed, ambulatory subject supports the diagnosis of Diabetes Mellitus. Hematocrit Auto (Bld) [Volum e fraction]Ordered By: Hudson De Leon on 02-19-2023 Hematocrit (Bld) [Volume fraction] 42.3 % 38.8-50.0 [facility] Hemoglobin [Mass/volume] in BloodOrdered By: Hudson De Leon on 02-19-2023 Hemoglobin (Bld) [Mass/Vol] 14.3 g/dL 13.0-17.0 [facility] Ketones Auto test strip (U) [Mass/Vol]Ordered By: Hudson De Leon on 02-19-2023 Ketones (U) [Mass/Vol] Negative Negative [facility] - UrinalysisOrder ed By: Hudson De Leon on 02-19-2023 Hyaline casts LM Ql (Urine sed) None seen [LPF] 0-8 [facility] Leukocytes [#/volume] correc leah for nucleated erythrocytes in Blood by Automated counOrdered By: Hudson De Leon on 02-19-2023 WBC corrected for nucl RBC Auto (Bld) [#/Vol] 4.7 10*3/uL 4.1-10.5 [facility] Lymphocytes Auto (Bld) [#/Vo l]Ordered By: Hudson De Leon on 02-19-2023 Lymphocytes (Bld) [#/Vol] 0.9 10*3/uL 1.00-4.8 [facility] Lymphocytes/100 WBC Auto (Bl d)Ordered By: Hudson De Leon on 02-19-2023 Lymphocytes/100 WBC (Bld) 18.5 % . [facility] MCH Auto (RBC) [Entitic mass ]Ordered By: Hudson De Leon on 02-19-2023 MCH (RBC) [Entitic mass] 31.5 pg 27.5-35.2 [facility] MCHC Auto (RBC) [Mass/Vol]Or dered By: Hudson De Leon on 02-19-2023 MCHC (RBC) [Mass/Vol] 33.9 g/dL 32.5-35.6 [facility] MCV Auto (RBC) [Entitic vol] Ordered By: Hudson De Leon on 02-19-2023 MCV (RBC) [Entitic vol] 93.0 fL 83.5-101 [facility] Monocytes Auto (Bld) [#/Vol] Ordered By: Hudson De Leon on 02-19-2023 Monocytes (Bld) [#/Vol] 0.4 10*3/uL 0.0-0.8 [facility] Monocytes/100 WBC Auto (Bld) Ordered By: Hudson De Leon on 02-19-2023 Monocytes/100 WBC (Bld) 8.1 % . [facility] Neutrophils Auto (Bld) [#/Vo l]Ordered By: Hudson De Leon on 02-19-2023 Neutrophils (Bld) [#/Vol] 3.4 10*3/uL 1.8-7.7 [facility] Neutrophils/100 WBC Auto (Bl d)Ordered By: Hudson De Leon on 02-19-2023 Neutrophils/100 WBC (Bld) 71.7 % . [facility] Nitrite Test strip Ql (U)Ord ered By: Hudson De Leon on 02-19-2023 Nitrite Ql (U) Negative Negative [facility] No Panel InformationOrdered By: Hudson De Leon on 02-19-2023 Estimated GFR (CKD-EPI) > 60.0 mL/Min [facility] Creatinine Clearance (Chem N/A [facility] Nucleated erythrocytes [Pres ence] in Blood by Automated countOrdered By: Hudson De Leon on 02-19-2023 Nucleated RBC Auto Ql (Bld) 0.1 /100{WBC} 0-0.5 [facility] Platelet mean volume Auto (B ld) [Entitic vol]Ordered By: Hudson De Leon on 02-19-2023 Platelet mean volume (Bld) [Entitic vol] 9.0 fL 6.6-10.1 [facility] Platelets Auto (Bld) [#/Vol] Ordered By: Hudson De Leon on 02-19-2023 Platelets (Bld) [#/Vol] 198 10*3/uL 150-450 [facility] Potassium [Moles/volume] in Serum or PlasmaOrdered By: Hudson De Leon on 02-19-2023 Potassium [Moles/Vol] 4.0 mmol/L 3.5-5.1 [facility] Protein Auto test strip (U) [Mass/Vol]Ordered By: Hudson De Leon on 02-19-2023 Protein (U) [Mass/Vol] Negative Negative [facility] Protein [Mass/volume] in Ser um or PlasmaOrdered By: Hudson De Leon on 02-19-2023 Protein [Mass/Vol] 6.7 g/dL 6.4-8.9 [facility] RBC Auto (Bld) [#/Vol]Ordere d By: Hudson De Leon on 02-19-2023 RBC (Bld) [#/Vol] 4.55 10*6/uL 3.90-5.60 [facility] Serum or plasma albumin/glob ulin mass ratioOrdered By: Hudson De Leon on 02-19-2023 Albumin/Globulin [Mass ratio] 1.6 {ratio} [facility] Serum or plasma anion gap de terminationOrdered By: Hudson De Leon on 02-19-2023 Anion gap [Moles/Vol] 9.4 mmol/L 6.0-15.0 [facility] Sodium [Moles/volume] in Ser um or PlasmaOrdered By: Hudson De Leon on 02-19-2023 Sodium [Moles/Vol] 140 mmol/L 136-145 [facility] Specific gravity Auto test s trip (U) [Rel density]Ordered By: Hudson De Leon on 02-19-2023 Specific gravity (U) [Rel density] 1.018 1.001-1.03 0 [facility] Squamous epithelial cells de tection in urine sediment by light microscopyOrdered By: Hudson De Leon on 02-19-2023 Epithelial cells.squamous LM Ql (Urine sed) None seen [HPF] 0-2 [facility] Urea nitrogen [Mass/volume] in Serum or PlasmaOrdered By: Hudson De Leon on 02-19-2023 Urea nitrogen [Mass/Vol] 16 mg/dL 7- [facility] Urine bacteria detection by automated methodOrdered By: Hudson De Leon on 02-19-2023 Bacteria Auto Ql (U) None seen None Seen [facility] Urine clarity by refractomet ry automatedOrdered By: Hudson De Leon on 02-19-2023 Clarity Refractometry automated (U) Clear Clear [facility] Urine glucose measurement by automated test strip (mass/volume)Ordered By: Hudson De Leon on 02-19-2023 Glucose Auto test strip (U) [Mass/Vol] Normal mg/dL Normal [facility] Urine hemoglobin detection b y automated test stripOrdered By: Hudson De Leon on 02-19-2023 Hemoglobin Auto test strip Ql (U) Negative Negative [facility] Urine leukocyte esterase det ection by automated test stripOrdered By: Hudson De Leon on 02-19-2023 Leukocyte esterase Auto test strip Ql (U) Negative Negative [facility] Urobilinogen Auto test strip (U) [Mass/Vol]Ordered By: Hudson De Leon on 02-19-2023 Urobilinogen (U) [Mass/Vol] Normal mg/dL Normal [facility] WBC Auto (Bld) [#/Vol]Ordere d By: Hudson De Leon on 02-19-2023 WBC (Bld) [#/Vol] 4.7 10*3/uL 4.1-10.5 [facility] pH Auto test strip (U)Ordere d By: Hudson De Leon on 02-19-2023 pH (U) 5.5 [pH] 5.0-9.0 [facility] Alanine aminotransferase [En zymatic activity/volume] in Serum or PlasmaOrdered By: Hudson De Leon on 10-15-2022 ALT [Catalytic activity/Vol] 19 U/L 7-52 [facility] Albumin [Mass/volume] in Ser um or Plasma by Bromocresol green (BCG) dye binding methoOrdered By: Hudson De Leon on 10-15-2022 Albumin BCG dye [Mass/Vol] 4.1 g/dL 3.5-5.7 [facility] Alkaline phosphatase [Enzyma tic activity/volume] in Serum or PlasmaOrdered By: Hudson De Leon on 10-15-2022 ALP [Catalytic activity/Vol] 89 U/L 34-104 [facility] Aspartate aminotransferase [ Enzymatic activity/volume] in Serum or PlasmaOrdered By: Hudson De Leon on 10-15-2022 AST [Catalytic activity/Vol] 19 U/L 13-39 [facility] Automated erythrocytes count in urine sediment (number/area)Ordered By: Hudson De Leon on 10-15-2022 RBC Auto (Urine sed) [#/Area] 1-2 [HPF] 0-4 [facility] Automated leukocytes count i n urine sediment (number/area)Ordered By: Hudson De Leon on 10-15-2022 WBC Auto (Urine sed) [#/Area] None seen [HPF] 0-4 [facility] Basophils Auto (Bld) [#/Vol] Ordered By: Hudson De Leon on 10-15-2022 Basophils (Bld) [#/Vol] 0.0 10*3/uL 0.0-0.2 [facility] Basophils/100 WBC Auto (Bld) Ordered By: Hudson De Leon on 10-15-2022 Basophils/100 WBC (Bld) 0.5 % . [facility] Bilirubin Test strip Ql (U)O rdered By: Hudson De Leon on 10-15-2022 Bilirubin Ql (U) Negative Negative [facility] Bilirubin.total [Mass/volume ] in Serum or PlasmaOrdered By: Hudson De Leon on 10-15-2022 Bilirubin [Mass/Vol] 0.6 mg/dL 0.3-1.0 [facility] Calcium [Mass/volume] in Ser um or PlasmaOrdered By: Hudson De Leon on 10-15-2022 Calcium [Mass/Vol] 8.5 mg/dL 8.6-10.3 [facility] Carbon dioxide, total [Moles /volume] in Serum or PlasmaOrdered By: Hudson De Leon on 10-15-2022 CO2 [Moles/Vol] 27.8 mmol/L 21.0-31.0 [facility] Chloride [Moles/volume] in S lenny or PlasmaOrdered By: Hudson De Leon on 10-15-2022 Chloride [Moles/Vol] 106 mmol/L 98-107 [facility] Color Auto (U)Ordered By: Jessica ttdwain Haley on 10-15-2022 Color (U) Yellow Yellow [facility] Creatinine [Mass/volume] in Serum or PlasmaOrdered By: Hudson De Leon on 10-15-2022 Creatinine [Mass/Vol] 1.09 mg/dL 0.70-1.30 [facility] Eosinophils Auto (Bld) [#/Vo l]Ordered By: Hudson De Leon on 10-15-2022 Eosinophils (Bld) [#/Vol] 0.1 10*3/uL 0.0-0.45 [facility] Eosinophils/100 WBC Auto (Bl d)Ordered By: Hudson De Leon on 10-15-2022 Eosinophils/100 WBC (Bld) 1.6 % . [facility] Erythrocyte distribution wid th Auto (RBC) [Ratio]Ordered By: Hudson De Leon on 10-15-2022 Erythrocyte distribution width (RBC) [Ratio] 14.2 % 12.0-14.8 [facility] Erythrocyte sedimentation ra te by Photometric methodOrdered By: Hudson De Leon on 10-15-2022 ESR Photometric method (Bld) [Velocity] 6 mm/hr 0-19 [facility] Globulin Calc (S) [Mass/Vol] Ordered By: Hduson De Leon on 10-15-2022 Globulin (S) [Mass/Vol] 2.8 g/dL [facility] Glucose [Mass/volume] in Ser um or PlasmaOrdered By: Hudson De Leon on 10-15-2022 Glucose [Mass/Vol] 139 mg/dL 70-100 [facility] Comment on above: ADA recommended refe rence rangeRandom Glucose Reference Range is dependent on time and content of last meal. Glucose of more than 200 mg/dL in a nonstressed, ambulatory subject supports the diagnosis of Diabetes Mellitus. Hematocrit Auto (Bld) [Volum e fraction]Ordered By: Hudson De Leon on 10-15-2022 Hematocrit (Bld) [Volume fraction] 42.6 % 38.8-50.0 [facility] Hemoglobin [Mass/volume] in BloodOrdered By: Hudson De Leon on 10-15-2022 Hemoglobin (Bld) [Mass/Vol] 14.4 g/dL 13.0-17.0 [facility] Ketones Auto test strip (U) [Mass/Vol]Ordered By: Hudson De Leon on 10-15-2022 Ketones (U) [Mass/Vol] Negative Negative [facility] - UrinalysisOrder ed By: Hudson De Leon on 10-15-2022 Hyaline casts LM Ql (Urine sed) None seen [LPF] 0-8 [facility] Leukocytes [#/volume] correc leah for nucleated erythrocytes in Blood by Automated counOrdered By: Hudson De Leon on 10-15-2022 WBC corrected for nucl RBC Auto (Bld) [#/Vol] 4.9 10*3/uL 4.1-10.5 [facility] Lymphocytes Auto (Bld) [#/Vo l]Ordered By: Hudson De Leon on 10-15-2022 Lymphocytes (Bld) [#/Vol] 1.0 10*3/uL 1.00-4.8 [facility] Lymphocytes/100 WBC Auto (Bl d)Ordered By: Hudson De Leon on 10-15-2022 Lymphocytes/100 WBC (Bld) 20.0 % . [facility] MCH Auto (RBC) [Entitic mass ]Ordered By: Hudson De Leon on 10-15-2022 MCH (RBC) [Entitic mass] 31.2 pg 27.5-35.2 [facility] MCHC Auto (RBC) [Mass/Vol]Or dered By: Hudson De Leon on 10-15-2022 MCHC (RBC) [Mass/Vol] 33.7 g/dL 32.5-35.6 [facility] MCV Auto (RBC) [Entitic vol] Ordered By: Hudson De Leon on 10-15-2022 MCV (RBC) [Entitic vol] 92.8 fL 83.5-101 [facility] Monocytes Auto (Bld) [#/Vol] Ordered By: Hudson DeL eon on 10-15-2022 Monocytes (Bld) [#/Vol] 0.4 10*3/uL 0.0-0.8 [facility] Monocytes/100 WBC Auto (Bld) Ordered By: Hudson De Leon on 10-15-2022 Monocytes/100 WBC (Bld) 8.6 % . [facility] Neutrophils Auto (Bld) [#/Vo l]Ordered By: Hudson De Leon on 10-15-2022 Neutrophils (Bld) [#/Vol] 3.4 10*3/uL 1.8-7.7 [facility] Neutrophils/100 WBC Auto (Bl d)Ordered By: Hudson De Leon on 10-15-2022 Neutrophils/100 WBC (Bld) 69.3 % . [facility] Nitrite Test strip Ql (U)Ord ered By: Hudson De Leon on 10-15-2022 Nitrite Ql (U) Negative Negative [facility] No Panel InformationOrdered By: Hudson De Leon on 10-15-2022 Estimated GFR (CKD-EPI) > 60.0 mL/Min [facility] Creatinine Clearance (Chem N/A [facility] Nucleated erythrocytes [Pres ence] in Blood by Automated countOrdered By: Hudson De Leon on 10-15-2022 Nucleated RBC Auto Ql (Bld) 0.1 /100{WBC} 0-0.5 [facility] Platelet mean volume Auto (B ld) [Entitic vol]Ordered By: Hudson De Leon on 10-15-2022 Platelet mean volume (Bld) [Entitic vol] 9.1 fL 6.6-10.1 [facility] Platelets Auto (Bld) [#/Vol] Ordered By: Hudson De Leon on 10-15-2022 Platelets (Bld) [#/Vol] 196 10*3/uL 150-450 [facility] Potassium [Moles/volume] in Serum or PlasmaOrdered By: Hudson De Leon on 10-15-2022 Potassium [Moles/Vol] 4.4 mmol/L 3.5-5.1 [facility] Protein Auto test strip (U) [Mass/Vol]Ordered By: Hudson De Leon on 10-15-2022 Protein (U) [Mass/Vol] Negative Negative [facility] Protein [Mass/volume] in Ser um or PlasmaOrdered By: Hudson De Leon on 10-15-2022 Protein [Mass/Vol] 6.9 g/dL 6.4-8.9 [facility] RBC Auto (Bld) [#/Vol]Ordere d By: Hudson De Leon on 10-15-2022 RBC (Bld) [#/Vol] 4.60 10*6/uL 3.90-5.60 [facility] Serum or plasma albumin/glob ulin mass ratioOrdered By: Hudson De Leon on 10-15-2022 Albumin/Globulin [Mass ratio] 1.5 {ratio} [facility] Serum or plasma anion gap de terminationOrdered By: Hudson De Leon on 10-15-2022 Anion gap [Moles/Vol] 9.6 mmol/L 6.0-15.0 [facility] Sodium [Moles/volume] in Ser um or PlasmaOrdered By: Hudson De Leon on 10-15-2022 Sodium [Moles/Vol] 139 mmol/L 136-145 [facility] Specific gravity Auto test s trip (U) [Rel density]Ordered By: Hudson De Leon on 10-15-2022 Specific gravity (U) [Rel density] 1.022 1.001-1.03 0 [facility] Squamous epithelial cells de tection in urine sediment by light microscopyOrdered By: Hudson De Leon on 10-15-2022 Epithelial cells.squamous LM Ql (Urine sed) None seen [HPF] 0-2 [facility] Urea nitrogen [Mass/volume] in Serum or PlasmaOrdered By: Hudson De Leon on 10-15-2022 Urea nitrogen [Mass/Vol] 24 mg/dL 7-25 [facility] Urine bacteria detection by automated methodOrdered By: Hudson De Leon on 10-15-2022 Bacteria Auto Ql (U) None seen None Seen [facility] Urine clarity by refractomet ry automatedOrdered By: Hudson De Leon on 10-15-2022 Clarity Refractometry automated (U) Clear Clear [facility] Urine glucose measurement by automated test strip (mass/volume)Ordered By: Hudson De Leon on 10-15-2022 Glucose Auto test strip (U) [Mass/Vol] Normal mg/dL Normal [facility] Urine hemoglobin detection b y automated test stripOrdered By: Hudson De Leon on 10-15-2022 Hemoglobin Auto test strip Ql (U) Negative Negative [facility] Urine leukocyte esterase det ection by automated test stripOrdered By: Hudson De Leon on 10-15-2022 Leukocyte esterase Auto test strip Ql (U) Negative Negative [facility] Urobilinogen Auto test strip (U) [Mass/Vol]Ordered By: Hudson De Leon on 10-15-2022 Urobilinogen (U) [Mass/Vol] Normal mg/dL Normal [facility] WBC Auto (Bld) [#/Vol]Ordere d By: Hudson De Leon on 10-15-2022 WBC (Bld) [#/Vol] 4.9 10*3/uL 4.1-10.5 [facility] pH Auto test strip (U)Ordere d By: Hudson De Leon on 10-15-2022 pH (U) 5.5 [pH] 5.0-9.0 [facility] Covid-19 PCR (CVDTB)on 08-23 SARS-CoV-2 (COVID-19) RNA LU+probe Ql (Unsp spec) Not detected Normal NOT DETECTED [facility] Comment on above: Result Comment: This test is not yet approved or cleared by the [place] FDA. When there are no FDA-approved or cleared tests available, and other criteria are met, FDA can make tests available under an emergency access mechanism called an Emergency Use Authorization (EUA). The EUA for this test is supported by the [employer] Supervisor of Health and Human Service's (HHS's) declaration [...] SARS-CoV-2. Performed By: #### I NSULIN #### [facility] [address] [place], [place] [address] Dr. Carolyn King SYMPTOMATIC COVID-19 ANTIGEN on 09-11-2022 EUA Statement SEE BELOW Normal [facility] Comment on above: Result Comment: This [...] sooner. Performed By: #### C VDAGS #### [facility] [address] [place], [place] [id number] Dr. Carolyn King SARS-CoV-2 (COVID-19) RNA LU+probe Ql (Unsp spec) Negative Normal NEGATIVE [facility] Comment on above: Performed By: #### C VDAGS #### [facility] [address] [place], [place] [id number] Dr. Carolyn King CT FOOT RT WO [...] 3. Mild subcutaneous edema. Electronically authenticated by: LUARY ZEPEDA Date: 2022-08-31 08:09 Normal [facility] US SINGLE QUAD RT UPPERon [...] by: LAURY ZEPEDA Date: 2022-08-31 07:41 Normal [facility] POINT OF CARE GLUCOSEon 05-24 Glucose [Mass/Vol] 125 mg/dL Critically high 74-106 [facility] Comment on above: Performed By: #### I NSULIN #### [facility] [address] [place] [address] [address] Carolyn King Glucose [Mass/Vol] 105 mg/dL Normal 74-106 [facility] Comment on above: Performed By: #### I NSULIN #### [facility] [address] [place] [address] [address] Carolyn King XR FOOT RT 2Von [...] BANDAR SAENZ Date: 2022-06-07 14:29 Normal [facility] Covid-19 PCR (CVDTBH)on 05-24 SARS-CoV-2 (COVID-19) RNA LU+probe Ql (Unsp spec) Not detected Normal NOT DETECTED [facility] Comment on above: Result Comment: This test is not yet approved or cleared by the [place] FDA. When there are no FDA-approved or cleared tests available, and other criteria are met, FDA can make tests available under an emergency access mechanism called an Emergency Use Authorization (EUA). The EUA for this test is supported by the [employer] Supervisor of Health and Human Service's (HHS's) declaration [...] SARS-CoV-2. Performed By: #### I NSULIN #### [facility] [address] [place] [address] Dr. Carolyn King Albumin [Mass/volume] in Ser um or PlasmaOrdered By: Hudson De Leon on 05-23-2022 Albumin [Mass/Vol] 3.9 g/dL 3.2-5.5 [facility] Automated erythrocytes count in urine sediment (number/area)Ordered By: Hudson De Leon on 05-23-2022 RBC Auto (Urine sed) [#/Area] None seen [HPF] 0-4 [facility] Automated leukocytes count i n urine sediment (number/area)Ordered By: Hudson De Leon on 05-23-2022 WBC Auto (Urine sed) [#/Area] None seen [HPF] 0-4 [facility] Basophils Auto (Bld) [#/Vol] Ordered By: Hudson De Leon on 05-23-2022 Basophils (Bld) [#/Vol] 0.0 10*3/uL 0.0-0.2 [facility] Basophils/100 WBC Auto (Bld) Ordered By: Hudson De Leon on 05-23-2022 Basophils/100 WBC (Bld) 0.6 % . [facility] Bilirubin Test strip Ql (U)O rdered By: Hudson De Leon on 05-23-2022 Bilirubin Ql (U) Negative Negative [facility] Color Auto (U)Ordered By: Jessica De Leon on 05-23-2022 Color (U) Yellow Yellow [facility] Creatinine and Glomerular fi ltration rate.predicted panel (S/P/Bld)Ordered By: Hudson De Leon on 05-23-2022 Creatinine [Mass/Vol] 0.92 mg/dL 0.64-1.27 [facility] Eosinophils Auto (Bld) [#/Vo l]Ordered By: Hudson De Leon on 05-23-2022 Eosinophils (Bld) [#/Vol] 0.0 10*3/uL 0.0-0.45 [facility] Eosinophils/100 WBC Auto (Bl d)Ordered By: Hudson De Leon on 05-23-2022 Eosinophils/100 WBC (Bld) 0.9 % . [facility] Erythrocyte distribution wid th Auto (RBC) [Ratio]Ordered By: Hudson De Leon on 05-23-2022 Erythrocyte distribution width (RBC) [Ratio] 13.4 % 12.0-14.8 [facility] Erythrocyte sedimentation ra te by Photometric methodOrdered By: Hudson De Leon on 05-23-2022 ESR Photometric method (Bld) [Velocity] 6 mm/hr 0-19 [facility] Estimated glomerular filtrat ion rate (GFR) non- AmericanOrdered By: Hudson De Leon on 05-23-2022 GFR/1.73 sq M.predicted among non-blacks MDRD (S/P/Bld) [Vol rate/Area] > 60 mL/Min [facility] Globulin Calc (S) [Mass/Vol] Ordered By: Hudson De Leon on 05-23-2022 Globulin (S) [Mass/Vol] 2.8 g/dL [facility] Hematocrit Auto (Bld) [Volum e fraction]Ordered By: Hudson De Leon on 05-23-2022 Hematocrit (Bld) [Volume fraction] 44.5 % 38.8-50.0 [facility] Hemoglobin [Mass/volume] in BloodOrdered By: Hudson De Leon on 05-23-2022 Hemoglobin (Bld) [Mass/Vol] 14.9 g/dL 13.0-17.0 [facility] Ketones Auto test strip (U) [Mass/Vol]Ordered By: Hudson De Leon on 05-23-2022 Ketones (U) [Mass/Vol] Negative Negative [facility] - UrinalysisOrder ed By: Hudson De Leon on 05-23-2022 Hyaline casts LM Ql (Urine sed) None seen [LPF] 0-8 [facility] Leukocytes [#/volume] correc leah for nucleated erythrocytes in Blood by Automated counOrdered By: Hudson De Leon on 05-23-2022 WBC corrected for nucl RBC Auto (Bld) [#/Vol] 5.2 10*3/uL 4.1-10.5 [facility] Lymphocytes Auto (Bld) [#/Vo l]Ordered By: Hudson De Leon on 05-23-2022 Lymphocytes (Bld) [#/Vol] 1.1 10*3/uL 1.00-4.8 [facility] Lymphocytes/100 WBC Auto (Bl d)Ordered By: Hudson De Leon on 05-23-2022 Lymphocytes/100 WBC (Bld) 21.1 % . [facility] MCH Auto (RBC) [Entitic mass ]Ordered By: Hudson De Leon on 05-23-2022 MCH (RBC) [Entitic mass] 31.2 pg 27.5-35.2 [facility] MCHC Auto (RBC) [Mass/Vol]Or dered By: Hudson De Leon on 05-23-2022 MCHC (RBC) [Mass/Vol] 33.5 g/dL 32.5-35.6 [facility] MCV Auto (RBC) [Entitic vol] Ordered By: Hudson De Leon on 05-23-2022 MCV (RBC) [Entitic vol] 93.3 fL 83.5-101 [facility] Monocytes Auto (Bld) [#/Vol] Ordered By: Hudson De Leon on 05-23-2022 Monocytes (Bld) [#/Vol] 0.5 10*3/uL 0.0-0.8 [facility] Monocytes/100 WBC Auto (Bld) Ordered By: Hudson De Leon on 05-23-2022 Monocytes/100 WBC (Bld) 10.3 % . [facility] Neutrophils Auto (Bld) [#/Vo l]Ordered By: Hudson De Leon on 05-23-2022 Neutrophils (Bld) [#/Vol] 3.5 10*3/uL 1.8-7.7 [facility] Neutrophils/100 WBC Auto (Bl d)Ordered By: Hudson De Leon on 05-23-2022 Neutrophils/100 WBC (Bld) 67.1 % . [facility] Nitrite Test strip Ql (U)Ord ered By: Hudson De Leon on 05-23-2022 Nitrite Ql (U) Negative Negative [facility] No Panel InformationOrdered By: Hudson De Leon on 05-23-2022 Estimated GFR () > 60 mL/Min [facility] Comment on above: GFR estimated refere nce range: According to KDOQI guidelines, <60 ml/min/1.73m2 is sufficient to diagnose a patient with chronic kidney disease. Pharmacy Creatinine Clearance (Chem N/A [facility] Nucleated erythrocytes [Pres ence] in Blood by Automated countOrdered By: Hudson De Leon on 05-23-2022 Nucleated RBC Auto Ql (Bld) 0.2 /100{WBC} 0-0.5 [facility] Platelet mean volume Auto (B ld) [Entitic vol]Ordered By: Hudson De Leon on 05-23-2022 Platelet mean volume (Bld) [Entitic vol] 9.4 fL 6.6-10.1 [facility] Platelets Auto (Bld) [#/Vol] Ordered By: Hudson De Leon on 05-23-2022 Platelets (Bld) [#/Vol] 234 10*3/uL 150-450 [facility] Protein Auto test strip (U) [Mass/Vol]Ordered By: Hudson De Leon on 05-23-2022 Protein (U) [Mass/Vol] Negative Negative [facility] Protein [Mass/volume] in Ser um or PlasmaOrdered By: Hudson De Leon on 05-23-2022 Protein [Mass/Vol] 6.7 g/dL 6.1-7.9 [facility] RBC Auto (Bld) [#/Vol]Ordere d By: Hudson De Leon on 05-23-2022 RBC (Bld) [#/Vol] 4.77 10*6/uL 3.90-5.60 [facility] Serum or plasma alanine gates otransferase measurement without P-5'-P (enzymatic activiOrdered By: Hudson De Leon on 05-23-2022 ALT No additional P-5'-P [Catalytic activity/Vol] 27 U/L [facility] Serum or plasma albumin/glob ulin mass ratioOrdered By: Hudson De Leon on 05-23-2022 Albumin/Globulin [Mass ratio] 1.4 {ratio} [facility] Serum or plasma alkaline amanda sphatase measurement (enzymatic activity/volume)Ordered By: Hudson De Leon on 05-23-2022 ALP [Catalytic activity/Vol] 90 U/L 32-92 [facility] Serum or plasma anion gap de terminationOrdered By: Hudson De Leon on 05-23-2022 Anion gap [Moles/Vol] 12.3 mmol/L 6.0-15.0 [facility] Serum or plasma aspartate am inotransferase measurement (enzymatic activity/volume)Ordered By: Hudson De Leon on 05-23-2022 AST [Catalytic activity/Vol] 31 U/L [facility] Serum or plasma calcium karl urement (mass/volume)Ordered By: Hudson De Leon on 05-23-2022 Calcium [Mass/Vol] 9.1 mg/dL 8.2-10.2 [facility] Serum or plasma chloride reba surement (moles/volume)Ordered By: Hudson De Leon on 05-23-2022 Chloride [Moles/Vol] 102 mmol/L 95-114 [facility] Serum or plasma glucose karl urement (mass/volume)Ordered By: Hudson De Leon on 05-23-2022 Glucose [Mass/Vol] 75 mg/dL 70-100 [facility] Comment on above: ADA recommended refe rence rangeRandom Glucose Reference Range is dependent on time and content of last meal. Glucose of more than 200 mg/dL in a nonstressed, ambulatory subject supports the diagnosis of Diabetes Mellitus. Serum or plasma potassium me asurement (moles/volume)Ordered By: Hudson De Leon on 05-23-2022 Potassium [Moles/Vol] 4.0 mmol/L 3.5-5.1 [facility] Serum or plasma sodium measu rement (moles/volume)Ordered By: Hudson De Leon on 05-23-2022 Sodium [Moles/Vol] 137 mmol/L 136-146 [facility] Serum or plasma total biliru bin measurement (mass/volume)Ordered By: Hudson De Leon on 05-23-2022 Bilirubin [Mass/Vol] 0.6 mg/dL 0.3-1.2 [facility] Serum or plasma total carbon dioxide measurement (moles/volume)Ordered By: Hudson De Leon on 05-23-2022 CO2 [Moles/Vol] 26.7 mmol/L 22.0-30.0 [facility] Serum or plasma urea nitroge n measurement (mass/volume)Ordered By: Hudson De Leon on 05-23-2022 Urea nitrogen [Mass/Vol] 11 mg/dL 9-23 [facility] Specific gravity Auto test s trip (U) [Rel density]Ordered By: Hudson De Leon on 05-23-2022 Specific gravity (U) [Rel density] 1.014 1.001-1.03 0 [facility] Squamous epithelial cells de tection in urine sediment by light microscopyOrdered By: Hudson De Leon on 05-23-2022 Epithelial cells.squamous LM Ql (Urine sed) None seen [HPF] 0-2 [facility] Urine bacteria detection by automated methodOrdered By: Hudson De Leon on 05-23-2022 Bacteria Auto Ql (U) None seen None Seen [facility] Urine clarity by refractomet ry automatedOrdered By: Hudson De Leon on 05-23-2022 Clarity Refractometry automated (U) Clear Clear [facility] Urine glucose measurement by automated test strip (mass/volume)Ordered By: Hudson De Leon on 05-23-2022 Glucose Auto test strip (U) [Mass/Vol] Normal mg/dL Normal [facility] Urine hemoglobin detection b y automated test stripOrdered By: Hudson De Leon on 05-23-2022 Hemoglobin Auto test strip Ql (U) Negative Negative [facility] Urine leukocyte esterase det ection by automated test stripOrdered By: Hudson De Leon on 05-23-2022 Leukocyte esterase Auto test strip Ql (U) Negative Negative [facility] Urobilinogen Auto test strip (U) [Mass/Vol]Ordered By: Hudson De Leon on 05-23-2022 Urobilinogen (U) [Mass/Vol] Normal mg/dL Normal [facility] WBC Auto (Bld) [#/Vol]Ordere d By: Hudson De Leon on 05-23-2022 WBC (Bld) [#/Vol] 5.2 10*3/uL 4.1-10.5 [facility] pH Auto test strip (U)Ordere d By: Hudson De Leon on 05-23-2022 pH (U) 5.5 [pH] 5.0-9.0 [facility] BN SPINE, CERVICAL, 2 OR 3 V IEWSon 05-02-2022 BN SPINE, CERVICAL, 2 OR 3 VIEWS Patient Name: JAY CARR STUDY: SPINE, CERVICAL, 2 OR 3 VIEWS; 05/02/2022 9:46 am INDICATION: cervical post op 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 COMPARISON: 08/03/2021 ACCESSION NUMBER(S): [id number] ORDERING CLINICIAN: KENTON LAWSON FINDINGS: Two views of the cervical spine. Patient is status post anterior cervical discectomy and fusion from C5-C7. No hardware complication. No acute fracture. No focal subluxation. Mild multilevel degenerative changes. IMPRESSION: Postsurgical changes status post ACDF from C5-C7. No hardware complication. Mild multilevel spondylosis. Electronically signed by: FRANCISCO FOLEY MD Normal [facility] BN SPINE, LUMBOSACRAL; 2 OR 3 VIEWSon 05-02-2022 BN SPINE, LUMBOSACRAL; 2 OR 3 VIEWS Patient Name: JAY CARR STUDY: SPINE, LUMBOSACRAL; 2 OR 3 VIEWS; 05/02/2022 9:46 am INDICATION: AP/LAT M54.50: Lumbar back pain M48.062: Lumbar stenosis with neurogenic claudication. COMPARISON: 01/29/2022 ACCESSION NUMBER(S): [id number] ORDERING CLINICIAN: KENTON LAWSON FINDINGS: Two views [...] Electronically signed by: FRANCISCO FOLEY MD Normal [facility] Established Visit (Orthopaed ic Surgery)on [...] Present Illness Jay is a pleasant 62-year-old [id number] male who presents today with his for [...] by phys (more content not included)... Normal [facility] Radiologyon 05-02-2022 XR Cervical spine 3 Views Normal [facility] DO Work Phone: XR Lumbar spine AP and Lateral Normal [facility] DO Work Phone: INSULINon 03-29-2022 Insulin 14.5 uIU/mL Normal 2.6-24.9 [facility] Comment on above: Performed By: #### I NSULIN #### [facility] [address] [place] [address] [address] Carolyn King CBC AUTO DIFFon 03-28-2022 BASO # 0.0 103/ul Normal 0.0-0.1 [facility] Comment on above: Performed By: #### C BC #### [facility] [address] [place] [address] Dr. Carolyn King Basophils/100 WBC (Bld) 0.6 % Normal 0.2-2.0 [facility] Comment on above: Performed By: #### C BC #### [facility] [address] [place] [address] Dr. Carolyn King EO # 0.1 103/ul Normal 0.0-0.7 [facility] Comment on above: Performed By: #### C BC #### [facility] [address] [place] [address] Dr. Carolyn King Eosinophils/100 WBC (Bld) 1.6 % Normal 0.9-7.0 [facility] Comment on above: Performed By: #### C BC #### [facility] [address] [place] [address] Dr. Carolyn King Erythrocyte distribution width (RBC) [Ratio] 13.2 % Normal 11.0-15.0 [facility] Comment on above: Performed By: #### C BC #### [facility] [address] [place] [address] Dr. Carolyn King Hematocrit (Bld) [Volume fraction] 44.5 % Normal 42.0-54.0 [facility] Comment on above: Performed By: #### C BC #### [facility] [address] [place] [address] Dr. Carolyn King Hemoglobin (Bld) [Mass/Vol] 15.0 g/dL Normal 14.0-18.0 [facility] Comment on above: Performed By: #### C BC #### [facility] [address] [place] [address] Dr. Carolyn King IG # 0.01 10e3/ul Normal 0.00-0.03 [facility] Comment on above: Performed By: #### C BC #### [facility] [address] [place] [address] Dr. Carolyn King IG % 0.2 % Normal 0.0-0.5 [facility] Comment on above: Performed By: #### C BC #### [facility] [address] [place] [address] [address] Carolyn King LYMPH # 1.0 103/ul Critically low 1.2-3.8 [facility] Comment on above: Performed By: #### C BC #### [facility] [address] [place] [address] [address] Carolyn King Lymphocytes/100 WBC (Bld) 15.8 % Critically low 20.5-60.0 [facility] Comment on above: Performed By: #### C BC #### [facility] [address] [place] [address] Dr. Carolyn King MANUAL DIFF REQ NO Normal [facility] [place] [facility] Comment on above: Performed By: #### C BC #### [facility] [address] [place] [address] Dr. Carolyn King MCH (RBC) [Entitic mass] 31.1 pg Normal 25.9-34.0 [facility] Comment on above: Performed By: #### C BC #### [facility] [address] [place] [address] Dr. Carolyn King MCHC (RBC) [Mass/Vol] 33.7 g/dL Normal 29.9-35.2 [facility] Comment on above: Performed By: #### C BC #### [facility] [address] [place] [address] Dr. Carolyn King MCV (RBC) [Entitic vol] 92.3 fL Normal 80.0-94.0 [facility] Comment on above: Performed By: #### C BC #### [facility] [address] [place] [address] Dr. Carolyn King MONO # 0.7 103/ul Normal 0.3-0.8 [facility] Comment on above: Performed By: #### C BC #### [facility] [address] [place] [address] Dr. Carolyn King Monocytes/100 WBC (Bld) 10.7 % Normal 1.7-12.0 [facility] Comment on above: Performed By: #### C BC #### [facility] [address] [place] [address] [address] Carolyn King NEUT # 4.4 103/ul Normal 1.4-6.5 [facility] Comment on above: Performed By: #### C BC #### [facility] [address] [place] [address] [address] Carolyn King Neutrophils/100 WBC (Bld) 71.1 % Normal 43.0-75.0 [facility] Comment on above: Performed By: #### C BC #### [facility] [address] [place] [address] Dr. Carolyn King Platelet mean volume (Bld) [Entitic vol] 10.2 fL Normal 9.5-13.5 [facility] Comment on above: Performed By: #### C BC #### [facility] [address] [place] [address] Dr. Carolyn King PLT 242 103/ul Normal 150-450 [facility] Comment on above: Performed By: #### C BC #### [facility] [address] [place] [address] Dr. Carolyn King RBC 4.82 106/ul Normal 4.70-6.10 [facility] Comment on above: Performed By: #### C BC #### [facility] [address] [place] [address] Dr. Carolyn King WBC 6.2 103/ul Normal 4.0-11.0 [facility] Comment on above: Performed By: #### C BC #### [facility] [address] [place] [address] Dr. Carolyn King FREE THYROXINE INDEX T7on FTI 2.55 Normal 1.30-4.50 [facility] Comment on above: Performed By: #### U ALLEN, TSH, T7, LIPID, CMP #### [facility] [address] [place] [address] Dr. Carolyn King T3U 30.0 % Critically low 33.0-40.0 [facility] Comment on above: Performed By: #### U ALLEN, TSH, T7, LIPID, CMP #### [facility] [address] [place] [address] [address] Carolyn King T4 [Mass/Vol] 8.50 ug/dL Normal 4.50-12.10 [facility] Comment on above: Performed By: #### U ALLEN, TSH, T7, LIPID, CMP #### [facility] [address] [place] [address] [address] Carolyn King GLYCOHEMOGLOBIN A1Con 2021 ADA RECOMMENDATION SEE BELOW Normal [facility] Comment on above: Result Comment: ADA RECOMMENDED LIMIT 4.0 - 6.0 ADA THERAPEUTIC TARGET < 7.0 ACTION SUGGESTED > 7.0 Performed By: #### A 1C #### [facility] [address] [place] [address] Dr. Carolyn King Glucose [Mass/Vol] 103 mg/dL Normal 74-106 [facility] Comment on above: Performed By: #### A 1C #### [facility] [address] [place] [address] Dr. Carolyn King Performed By: #### U ALLEN, TSH, T7, LIPID, CMP #### [facility] [address] [place] [address] Dr. Carolyn King HbA1c (Bld) [Mass fraction] 5.2 % Normal 4.5-6.2 [facility] Comment on above: Performed By: #### A 1C #### [facility] [address] [place] [address] Dr. Carolyn King LIPID PROFILEon 03-28-2022 CHOL-HDL RATIO NORM SEE BELOW Normal [facility] Comment on above: Result Comment: 3.3 - 4.4 LOW RISK 4.4 - 7.1 AVERAGE RISK 7.1 - 11.0 MODERATE RISK >11.0 HIGH RISK Performed By: #### U ALLEN, TSH, T7, LIPID, CMP #### [facility] [address] [place] [address] Dr. Carolyn King Cholesterol [Mass/Vol] 157 mg/dL Normal <=200 [facility] Comment on above: Performed By: #### U ALLEN, TSH, T7, LIPID, CMP #### [facility] [address] [address] [address] Carolyn King Cholesterol in HDL [Mass/Vol] 49 mg/dL Normal 40-60 [facility] Comment on above: Performed By: #### U ALLEN, TSH, T7, LIPID, CMP #### [facility] [address] [place] [address] [address] Carolyn King Cholesterol in LDL [Mass/Vol] 85.6 mg/dL Normal [facility] Comment on above: Performed By: #### U ALLEN, TSH, T7, LIPID, CMP #### [facility] [address] [address] [address] Carolyn King Cholesterol.total/Chol esterol in HDL [Mass ratio] 3.2 {ratio} Normal [facility] Comment on above: Performed By: #### U ALLEN, TSH, T7, LIPID, CMP #### [facility] [address] [address] [address] Carolyn King HDL NORMAL > or = 60 mg/dl - LO W CARDIOVASCULAR RISK <40 mg/dl - HIGH CARDIOVASCULAR RISK Normal [facility] Comment on above: Performed By: #### U ALLEN, TSH, T7, LIPID, CMP #### [facility] [address] [address] [address] Carolyn King LDL CALC NORMAL SEE BELOW Normal [facility] Comment on above: Result Comment: <100 mg/dl OPTIMAL 100 - 129 mg/dl NEAR OR ABOVE OPTIMAL 130 - 159 mg/dl BORDERLINE HIGH 160 - 189 mg/dl HIGH >190 mg/dl VERY HIGH Performed By: #### U ALLEN, TSH, T7, LIPID, CMP #### [facility] [address] [address] [address] Caroyln King Triglyceride [Mass/Vol] 112 mg/dL Normal <=150 [facility] Comment on above: Performed By: #### U ALLEN, TSH, T7, LIPID, CMP #### [facility] [address] [address] [address] Carolyn King VLDL CALC 22.4 mg/dL Normal [facility] Comment on above: Performed By: #### U ALLEN, TSH, T7, LIPID, CMP #### [facility] [address] [place] [address] Dr. Carolyn King PROF 14(COMP METB)on 022 Albumin [Mass/Vol] 3.9 g/dL Normal 3.4-5.0 [facility] Comment on above: Performed By: #### U ALLEN, TSH, T7, LIPID, CMP #### [facility] [address] [place] [address] Dr. Carolyn King Albumin/Globulin [Mass ratio] 1.1 {ratio} Normal [facility] Comment on above: Performed By: #### U ALLEN, TSH, T7, LIPID, CMP #### [facility] [address] [place] [address] Dr. Carolyn King ALP [Catalytic activity/Vol] 108 U/L Normal 46-116 [facility] Comment on above: Performed By: #### U ALLEN, TSH, T7, LIPID, CMP #### [facility] [address] [place] [address] Dr. Carolyn King ALT [Catalytic activity/Vol] 28 U/L Normal 16-63 [facility] Comment on above: Performed By: #### U ALLEN, TSH, T7, LIPID, CMP #### [facility] [address] [place] [address] Dr. Carolyn King Anion gap [Moles/Vol] 6.6 mmol/L Normal [facility] Comment on above: Performed By: #### U ALLEN, TSH, T7, LIPID, CMP #### [facility] [address] [place] [address] Dr. Carolyn King AST [Catalytic activity/Vol] 22 U/L Normal 15-37 [facility] Comment on above: Performed By: #### U ALLEN, TSH, T7, LIPID, CMP #### [facility] [address] [place] [address] Dr. Carolyn King Bilirubin [Mass/Vol] 0.6 mg/dL Normal 0.2-1.0 [facility] Comment on above: Performed By: #### U ALLEN, TSH, T7, LIPID, CMP #### [facility] [address] [address] [address] Carolyn King Calcium [Mass/Vol] 8.7 mg/dL Normal 8.5-10.1 [facility] Comment on above: Performed By: #### U ALLEN, TSH, T7, LIPID, CMP #### [facility] [address] [address] [address] Carolyn King Chloride [Moles/Vol] 105 mmol/L Normal 98-107 [facility] Comment on above: Performed By: #### U ALLEN, TSH, T7, LIPID, CMP #### [facility] [address] [address] [address] Carolyn King CO2 [Moles/Vol] 30.6 mmol/L Normal 21.0-32.0 [facility] Comment on above: Performed By: #### U ALLEN, TSH, T7, LIPID, CMP #### [facility] [address] [address] [address] Carolyn King Creatinine [Mass/Vol] 0.96 mg/dL Normal 0.70-1.30 [facility] Comment on above: Performed By: #### U ALLEN, TSH, T7, LIPID, CMP #### [facility] [address] [place] [address] Dr. Carolyn King EGFR-AF ST HELENIAN >60 Normal >=60 [facility] Comment on above: Performed By: #### U ALLEN, TSH, T7, LIPID, CMP #### [facility] [address] [address] [address] Carolyn King EGFR-NON AF [facility] HELENIAN >60 Normal >=60 [facility] Comment on above: Performed By: #### U ALLEN, TSH, T7, LIPID, CMP #### [facility] [address] [address] [address] Carolyn King Globulin (S) [Mass/Vol] 3.5 g/dL Normal [facility] Comment on above: Performed By: #### U ALLEN, TSH, T7, LIPID, CMP #### [facility] [address] [address] [address] Carolyn King Potassium [Moles/Vol] 4.2 mmol/L Normal 3.5-5.1 [facility] Comment on above: Performed By: #### U ALLEN, TSH, T7, LIPID, CMP #### [facility] [address] [place] [address] Dr. Carolyn King Protein [Mass/Vol] 7.4 g/dL Normal 6.4-8.2 [facility] Comment on above: Performed By: #### U ALLEN, TSH, T7, LIPID, CMP #### [facility] [address] [place] [address] Dr. Carolyn King Sodium [Moles/Vol] 138 mmol/L Normal 136-145 [facility] Comment on above: Performed By: #### U ALLEN, TSH, T7, LIPID, CMP #### [facility] [address] [place] [address] Dr. Carolyn King Urea nitrogen [Mass/Vol] 16.0 mg/dL Normal 7.0-18.0 [facility] Comment on above: Performed By: #### U ALLEN, TSH, T7, LIPID, CMP #### [facility] [address] [place] [address] Dr. Carolyn King Urea nitrogen/Creatinine [Mass ratio] 16.7 mg/mg Normal [facility] Comment on above: Performed By: #### U ALLEN, TSH, T7, LIPID, CMP #### [facility] [address] [place] [address] Dr. Carolyn King TSHon 03-28-2022 TSH 1.986 uIU/mL Normal 0.358-3.74 0 [facility] Comment on above: Performed By: #### U ALLEN, TSH, T7, LIPID, CMP #### [facility] [address] [place] [address] Dr. Carolyn King URIC ACID SERUMon 03-28-2022 Urate [Mass/Vol] 5.5 mg/dL Normal 3.5-7.2 [facility] Comment on above: Performed By: #### U ALLEN, TSH, T7, LIPID, CMP #### [facility] [address] [place] [address] Dr. Carolyn King Ammonium urate crystals dete ction in stone by infrared spectroscopyOrdered By: Shun Machado on 02-15-2022 Ammonium urate crystals Infrared spectroscopy Ql (Stone) N/A [facility] Basophils Auto (Bld) [#/Vol] Ordered By: Steve Pina on 02-15-2022 Basophils (Bld) [#/Vol] 0.0 10*3/uL 0.0-0.2 [facility] Basophils/100 WBC Auto (Bld) Ordered By: Steve Pina on 02-15-2022 Basophils/100 WBC (Bld) 0.9 % . [facility] Blood hemoglobin measurement (mass/volume)Ordered By: Steve Pina on 02-15-2022 Hemoglobin (Bld) [Mass/Vol] 14.2 g/dL 13.0-17.0 [facility] Blood leukocytes automated c ount (number/volume)Ordered By: Steve Pina on 02-15-2022 WBC (Bld) [#/Vol] 4.5 10*3/uL 4.5-11.0 [facility] Calcium bilirubinate measure mentOrdered By: Shun Machado on 02-15-2022 Calcium bilirubinate (Stone) [Mass fraction] N/A [facility] Calcium carbonate measuremen tOrdered By: Shun Machado on 02-15-2022 Calcium carbonate (Stone) [Mass fraction] N/A [facility] Calcium hydrogen phosphate d ihydrate/Total in StoneOrdered By: Shun Machado on 02-15-2022 Calcium hydrogen phosphate dihydrate (Stone) [Mass fraction] N/A [facility] Calcium oxalate dihydrate cr ystals detection in stone by infrared spectroscopyOrdered By: Shun Machado on 02-15-2022 Calcium oxalate dihydrate crystals Infrared spectroscopy Ql (Stone) 10 % . [facility] Calcium oxalate monohydrate/ Total in StoneOrdered By: Shun Machado on 02-15-2022 Calcium oxalate monohydrate (Stone) [Mass fraction] 90 % . [facility] Calcium phosphate measuremen tOrdered By: Shun Machado on 02-15-2022 Calcium phosphate (Stone) [Mass fraction] N/A [facility] Calculus analysis interpreta tion in stoneOrdered By: Shun Machado on 02-15-2022 Calculus analysis [Interp] N/A [facility] Calculus analysis [Interp] See comment . [facility] Comment on above: Physician questions regarding Calculi Analysis contact [facility] at: [phone]. Calculi report will follow via computer, mail or vitreo retinal surgeon delivery. Calculus analysis with calcu iggy photography interpretation in stoneOrdered By: Shun Machado on 02-15-2022 Calculus analysis with calculus photography [Interp] See comment . [facility] Comment on above: Photograph will foll ow under a separate cover Cellular material measuremen t in stone by estimated (mass/mass)Ordered By: Shun Machado on 02-15-2022 Cellular material Est (Stone) [Mass/Mass] N/A [facility] Cholesterol/Total in StoneOr dered By: Shun Machado on 02-15-2022 Cholesterol (Stone) [Mass fraction] N/A [facility] Composition of stoneOrdered By: Shun Machado on 02-15-2022 Composition Nom (Stone) See comment . [facility] Comment on above: Percentage (Represen ts the % composition) Creatinine and Glomerular fi ltration rate.predicted panel (S/P/Bld)Ordered By: Steve Pina on 02-15-2022 Creatinine [Mass/Vol] 0.96 mg/dL 0.64-1.27 [facility] Cystine measurementOrdered B y: Shun Machado on 02-15-2022 Cystine (Unsp spec) [Moles/Vol] N/A [facility] Determination of color of ca lculusOrdered By: Shun Machado on 02-15-2022 Color (Stone) Brown . [facility] Eosinophils Auto (Bld) [#/Vo l]Ordered By: Steve Pina on 02-15-2022 Eosinophils (Bld) [#/Vol] 0.1 10*3/uL 0.0-0.45 [facility] Eosinophils/100 WBC Auto (Bl d)Ordered By: Steve Pina on 02-15-2022 Eosinophils/100 WBC (Bld) 2.7 % . [facility] Erythrocyte distribution wid th Auto (RBC) [Ratio]Ordered By: Steve Pina on 02-15-2022 Erythrocyte distribution width (RBC) [Ratio] 14.0 % 12.0-14.8 [facility] Estimated glomerular filtrat ion rate (GFR) non- AmericanOrdered By: Steve Pina on 02-15-2022 GFR/1.73 sq M.predicted among non-blacks MDRD (S/P/Bld) [Vol rate/Area] > 60 mL/Min [facility] Hematocrit Auto (Bld) [Volum e fraction]Ordered By: Steve Pina on 02-15-2022 Hematocrit (Bld) [Volume fraction] 42.2 % 38.8-50.0 [facility] Hydroxyapatite [Energy Diffe rence] in 24 hour UrineOrdered By: Shun Machado on 02-15-2022 Hydroxyapatite (24H U) [Energy diff] N/A [facility] - Hematology and Cell countsOrdered By: Steve Pina on 02-15-2022 Nucleated RBC/100 WBC (Bld) [Ratio] 0.0 % 0-0.5 [facility] Lymphocytes Auto (Bld) [#/Vo l]Ordered By: Steve Pina on 02-15-2022 Lymphocytes (Bld) [#/Vol] 1.0 10*3/uL 1.00-4.8 [facility] Lymphocytes/100 WBC Auto (Bl d)Ordered By: Steve Pina on 02-15-2022 Lymphocytes/100 WBC (Bld) 21.3 % . [facility] MCH Auto (RBC) [Entitic mass ]Ordered By: Steve Pina on 02-15-2022 MCH (RBC) [Entitic mass] 31.0 pg 27.5-35.2 [facility] MCHC Auto (RBC) [Mass/Vol]Or dered By: Steve Pina on 02-15-2022 MCHC (RBC) [Mass/Vol] 33.7 g/dL 32.5-35.6 [facility] MCV Auto (RBC) [Entitic vol] Ordered By: Steve Pina on 02-15-2022 MCV (RBC) [Entitic vol] 92.1 fL 83.5-101 [facility] Measurement of proportion of calculus composed of dried blood (mass/mass)Ordered By: Shun Machado on 02-15-2022 Blood.dried (Stone) [Mass fraction] N/A [facility] Monocytes Auto (Bld) [#/Vol] Ordered By: Steve Pina on 02-15-2022 Monocytes (Bld) [#/Vol] 0.5 10*3/uL 0.0-0.8 [facility] Monocytes/100 WBC Auto (Bld) Ordered By: Steve Pina on 02-15-2022 Monocytes/100 WBC (Bld) 10.1 % . [facility] Neutrophils Auto (Bld) [#/Vo l]Ordered By: Steve Pina on 02-15-2022 Neutrophils (Bld) [#/Vol] 3.0 10*3/uL 1.8-7.7 [facility] Neutrophils/100 WBC Auto (Bl d)Ordered By: Steve Pnia on 02-15-2022 Neutrophils/100 WBC (Bld) 65.0 % . [facility] Newberyite/Total in StoneOrd ered By: Shun Machado on 02-15-2022 Newberyite (Stone) [Mass fraction] N/A [facility] No Panel InformationOrdered By: Shun Machado on 02-15-2022 Stone 2,8 Dihydroxyadenine N/A [facility] Stone Analysis Disclaimer See comment . [facility] Comment on above: This test was develo ped and its performance characteristics determined by [employer]. It has not been cleared or approved by the Food and Drug Administration. Performed at: [facility] Stone [facility] [address] [place] [address] [place] [id number] Supervisor Volunteer Services: Riley Parikh PhD, Phone: [phone] [facility] N[facility] Stone Calcium Palmitate N/A [facility] Stone Calcium Stearate N/A [facility] Stone Carbonate Apatite N/A [facility] Stone Drug or Metabolite N/A [facility] Stone Other Constituent N/A [facility] Stone Xanthine N/A [facility] No Panel InformationOrdered By: Steve Pina on 02-15-2022 Estimated GFR () > 60 mL/Min [facility] Comment on above: GFR estimated refere nce range: According to KDOQI guidelines, <60 ml/min/1.73m2 is sufficient to diagnose a patient with chronic kidney disease. Pharmacy Creatinine Clearance (Chem 93.62 [facility] Platelet mean volume Auto (B ld) [Entitic vol]Ordered By: Steve Pina on 02-15-2022 Platelet mean volume (Bld) [Entitic vol] 7.9 fL 6.6-10.1 [facility] Platelets Auto (Bld) [#/Vol] Ordered By: Steve Pina on 02-15-2022 Platelets (Bld) [#/Vol] 202 10*3/uL 150-450 [facility] RBC Auto (Bld) [#/Vol]Ordere d By: Steve Pina on 02-15-2022 RBC (Bld) [#/Vol] 4.58 10*6/uL 3.90-5.60 [facility] Serum or plasma calcium karl urement (mass/volume)Ordered By: Steve Pina on 02-15-2022 Calcium [Mass/Vol] 9.0 mg/dL 8.2-10.2 [facility] Serum or plasma chloride reba surement (moles/volume)Ordered By: Steve Pina on 02-15-2022 Chloride [Moles/Vol] 102 mmol/L 95-114 [facility] Serum or plasma glucose karl urement (mass/volume)Ordered By: Steve Pina on 02-15-2022 Glucose [Mass/Vol] 108 mg/dL 70-100 [facility] Comment on above: ADA recommended refe rence range Random Glucose Reference Range is dependent on time and content of last meal. Glucose of more than 200 mg/dL in a nonstressed, ambulatory subject supports the diagnosis of Diabetes Mellitus. Serum or plasma potassium me asurement (moles/volume)Ordered By: Steve Pina on 02-15-2022 Potassium [Moles/Vol] 3.9 mmol/L 3.5-5.1 [facility] Serum or plasma sodium measu rement (moles/volume)Ordered By: Steve Pina on 02-15-2022 Sodium [Moles/Vol] 137 mmol/L 136-146 [facility] Serum or plasma total carbon dioxide measurement (moles/volume)Ordered By: Steve Pina on 02-15-2022 CO2 [Moles/Vol] 28.0 mmol/L 22.0-30.0 [facility] Serum or plasma urea nitroge n measurement (mass/volume)Ordered By: Steve Pina on 02-15-2022 Urea nitrogen [Mass/Vol] 11 mg/dL 9- [facility] Size [Entitic volume] of Sto neOrdered By: Shun Machado on 02-15-2022 Size (Stone) [Entitic vol] 5x3 mm . [facility] Comment on above: Multiple pieces rece ived. Dimensions of the largest piece reported. Sodium urate crystals detect ion in stone by infrared spectroscopyOrdered By: Shun Machado on 02-15-2022 Sodium urate crystals Infrared spectroscopy Ql (Stone) N/A [facility] Specimen source subject [Typ e]Ordered By: Shun Machado on 02-15-2022 Specimen source subject Nom See comment . [facility] Comment on above: Right Ureter Triamterene measurement in c alculusOrdered By: Shun Machado on 02-15-2022 Triamterene (Stone) [Mass fraction] N/A [facility] Triple phosphate/Total in St oneOrdered By: Shun Machado on 02-15-2022 Triple phosphate (Stone) [Mass fraction] N/A [facility] Uric acid dihydrate crystals detection in stone by infrared spectroscopyOrdered By: Shun Machado on 02-15-2022 Urate dihydrate crystals Infrared spectroscopy Ql (Stone) N/A [facility] XR ANKLE RT MIN [...] LAURY ZEPEDA Date: 2022-02-15 06:59 Normal [facility] COVID-19 Positive/NegativeOr dered By: Shun Machado on 02-13-2022 SARS-CoV-2 (COVID-19) N gene LU+probe Ql (Resp) Negative Negative [facility] Comment on above: Testing for SARS-CoV -2 by RT-PCR This test was developed and its performance characteristics determined by [employer] and validated at the [facility]. This test has not [...] claudication. COMPARISON: November 08, 2021 ACCESSION NUMBER(S): [id number] ORDERING CLINICIAN: KENTON LAWSON FINDINGS: Status post anterior and posterior fusion L3-L5 unchanged prior examination with disc space replacement and posterior pedicle screws. Alignment normal. Upper lumbar degenerative changes greatest at L2-3 again noted. IMPRESSION: Satisfactory and unchanged appearance status post L3-L5 fusion. Electronically signed by: JENI SNYDER MD Normal [facility] Established Visit (Orthopaed ic Surgery)on [...] Xray BN Spine, Lumbosacral; 2 or 3 [id number] 10:34AKenton fernández Test NameResultFlagReference Xray Lumbar Spine AP [...] BANDAR SAENZ Date: 2022-01-29 21:07 Normal [facility] Activated partial thrombopla stin time (aPTT) in platelet poor plasma by coagulation aOrdered By: Shun Machado on 01-17-2022 aPTT Coag (PPP) [Time] 36.3 s 25.1-36.5 [facility] COVID-19 Positive/NegativeOr dered By: Shun Machado on 01-17-2022 SARS-CoV-2 (COVID-19) N gene LU+probe Ql (Resp) Negative Negative [facility] Comment on above: Testing for SARS-CoV -2 by RT-PCR This test was developed and its performance characteristics determined by [employer] ([employer]) and validated at the [facility]. This test has not [...] PT Coag (PPP) [Time] 11.9 s 9.0-12.9 [facility] Platelet poor plasma interna tional normalized ratio (INR) by coagulation assay (relatOrdered By: Shun Machado on 01-17-2022 INR Coag (PPP) [Relative time] 1.1 {INR} [facility] Comment on above: INR [...] BANDAR SAENZ Date: 2022-01-11 16:29 Normal [facility] CBC AUTO DIFFon 01-09-2022 BASO # 0.0 103/ul Normal 0.0-0.1 [facility] Comment on above: Performed By: #### C BC #### [facility] [address] [place] [address] Dr. Carolyn King Basophils/100 WBC (Bld) 0.4 % Normal 0.2-2.0 [facility] Comment on above: Performed By: #### C BC #### [facility] [address] [place] [address] Dr. Carolyn King EO # 0.0 103/ul Normal 0.0-0.7 [facility] Comment on above: Performed By: #### C BC #### [facility] [address] [place] [address] Dr. Carolyn King Eosinophils/100 WBC (Bld) 0.3 % Critically low 0.9-7.0 [facility] Comment on above: Performed By: #### C BC #### [facility] [address] [place] [address] Dr. Carolyn King Erythrocyte distribution width (RBC) [Ratio] 12.6 % Normal 11.0-15.0 [facility] Comment on above: Performed By: #### C BC #### [facility] [address] [place] [address] Dr. Carolyn King Hematocrit (Bld) [Volume fraction] 45.6 % Normal 42.0-54.0 [facility] Comment on above: Performed By: #### C BC #### [facility] [address] [place] [address] Dr. Carolyn King Hemoglobin (Bld) [Mass/Vol] 15.6 g/dL Normal 14.0-18.0 [facility] Comment on above: Performed By: #### C BC #### [facility] [address] [place] [address] Dr. Carolyn King IG # 0.02 10e3/ul Normal 0.00-0.03 [facility] Comment on above: Performed By: #### C BC #### [facility] [address] [place] [address] Dr. Carolyn King IG % 0.3 % Normal 0.0-0.5 [facility] Comment on above: Performed By: #### C BC #### [facility] [address] [address] [address] Carolyn King LYMPH # 0.8 103/ul Critically low 1.2-3.8 [facility] Comment on above: Performed By: #### C BC #### [facility] [address] [address] [address] Carolyn King Lymphocytes/100 WBC (Bld) 11.4 % Critically low 20.5-60.0 [facility] Comment on above: Performed By: #### C BC #### [facility] [address] [place] [address] Dr. Carolyn King MANUAL DIFF REQ NO Normal [facility] Comment on above: Performed By: #### C BC #### [facility] [address] [place] [address] Dr. Carolyn King MCH (RBC) [Entitic mass] 30.8 pg Normal 25.9-34.0 [facility] Comment on above: Performed By: #### C BC #### [facility] [address] [place] [address] Dr. Carolyn King MCHC (RBC) [Mass/Vol] 34.2 g/dL Normal 29.9-35.2 [facility] Comment on above: Performed By: #### C BC #### [facility] [address] [place] [address] Dr. Carolyn King MCV (RBC) [Entitic vol] 89.9 fL Normal 80.0-94.0 [facility] Comment on above: Performed By: #### C BC #### [facility] [address] [place] [address] Dr. Carolyn King MONO # 0.6 103/ul Normal 0.3-0.8 [facility] Comment on above: Performed By: #### C BC #### [facility] [address] [place] [address] Dr. Carolyn King Monocytes/100 WBC (Bld) 8.5 % Normal 1.7-12.0 [facility] Comment on above: Performed By: #### C BC #### [facility] [address] [address] [address] Carolyn King NEUT # 5.8 103/ul Normal 1.4-6.5 [facility] Comment on above: Performed By: #### C BC #### [facility] [address] [place] [address] Dr. Carolyn King Neutrophils/100 WBC (Bld) 79.1 % Critically high 43.0-75.0 [facility] Comment on above: Performed By: #### C BC #### [facility] [address] [place] [address] Dr. Carolyn King Platelet mean volume (Bld) [Entitic vol] 10.7 fL Normal 9.5-13.5 [facility] Comment on above: Performed By: #### C BC #### [facility] [address] [place] [address] Dr. Carolyn King PLT 235 103/ul Normal 150-450 [facility] Comment on above: Performed By: #### C BC #### [facility] [address] [place] [address] Dr. Carolyn King RBC 5.07 106/ul Normal 4.70-6.10 [facility] Comment on above: Performed By: #### C BC #### [facility] [address] [place] [address] Dr. Carolyn King WBC 7.4 103/ul Normal 4.0-11.0 [facility] Comment on above: Performed By: #### C BC #### [facility] [address] [place] [address] ABD/PELVIS WO CONon [...] LAURY ZEPEDA Date: 2022-01-09 13:38 Normal [facility] ER URINE PROFILEon 2 Bilirubin Ql (U) Negative Normal NEGATIVE [facility] Comment on above: Performed By: #### I NSULIN #### [facility] [address] [address] [address] Carolyn King Clarity (U) CLEAR Normal CLEAR [facility] Comment on above: Performed By: #### I NSULIN #### [facility] [address] [address] [address] Carolyn King Color (U) LT. YELLOW Normal YELLOW [facility] Comment on above: Performed By: #### I NSULIN #### [facility] [address] [address] [address] Carolyn King ERUAHD A micrscopic examina tion will be performed if indicated. Normal [facility] Comment on above: Performed By: #### I NSULIN #### [facility] [address] [address] [address] Carolyn King Glucose Ql (U) Negative Normal NEGATIVE [facility] Comment on above: Performed By: #### I NSULIN #### [facility] [address] [place] [address] Dr. Carolyn King Hemoglobin Ql (U) MODERATE Abnormal NEGATIVE [facility] Comment on above: Performed By: #### I NSULIN #### [facility] [address] [address] [address] Carolyn King Ketones Ql (U) Negative Normal NEGATIVE [facility] Comment on above: Performed By: #### I NSULIN #### [facility] [address] [place] [address] Dr. Carolyn King LEUKOCYTES Negative Normal NEGATIVE [facility] Comment on above: Performed By: #### I NSULIN #### [facility] [address] [place] [address] Dr. Carolyn King Nitrite Ql (U) Negative Normal NEGATIVE [facility] Comment on above: Performed By: #### I NSULIN #### [facility] [address] [place] [address] Dr. Carolyn King pH (U) 6.0 [pH] Normal 5-9 [facility] Comment on above: Performed By: #### I NSULIN #### [facility] [address] [place] [address] Dr. Carolyn King SPEC GRAVITY 1.010 Normal 1.005-<=1. 025 [facility] Comment on above: Performed By: #### I NSULIN #### [facility] [address] [address] [address] Carolyn King UA PROTEIN Negative Normal NEGATIVE/ TRACE [facility] Comment on above: Performed By: #### I NSULIN #### [facility] [address] [place] [address] Dr. Carolyn King UR MICRO IND INDICATED Normal [facility] Comment on above: Performed By: #### I NSULIN #### [facility] [address] [place] [address] Dr. Carolyn King Urobilinogen Qn (U) 0.2 {Keren'U}/dL Normal 0.2 - 1. 0 [facility] Comment on above: Performed By: #### I NSULIN #### [facility] [facility] [address] [place] [address] Dr. Carolyn King LIPASEon 01-09-2022 Lipase [Catalytic activity/Vol] 98.0 U/L Normal 73.0-393.0 [facility] Comment on above: Performed By: #### I NSULIN #### [facility] [address] [place] [address] Dr. Carolyn King PROF 14(COMP METB)on 022 Albumin [Mass/Vol] 4.0 g/dL Normal 3.4-5.0 [facility] Comment on above: Performed By: #### I NSULIN #### [facility] [address] [place] [address] Dr. Carolyn King Albumin/Globulin [Mass ratio] 1.1 {ratio} Normal [facility] Comment on above: Performed By: #### I NSULIN #### [facility] [address] [place] [address] Dr. Carolyn King ALP [Catalytic activity/Vol] 112 U/L Normal 46-116 [facility] Comment on above: Performed By: #### I NSULIN #### [facility] [address] [place] [address] Dr. Carolyn King ALT [Catalytic activity/Vol] 27 U/L Normal 16-63 [facility] Comment on above: Performed By: #### I NSULIN #### [facility] [address] [place] [address] Dr. Carolyn King Anion gap [Moles/Vol] 14.9 mmol/L Normal [facility] Comment on above: Performed By: #### I NSULIN #### [facility] [address] [place] [address] Dr. Carolyn King AST [Catalytic activity/Vol] 22 U/L Normal 15-37 [facility] Comment on above: Performed By: #### I NSULIN #### [facility] [address] [address] [address] Carolyn King Bilirubin [Mass/Vol] 0.5 mg/dL Normal 0.2-1.0 [facility] Comment on above: Performed By: #### I NSULIN #### [facility] [address] [address] [address] Carolyn King Calcium [Mass/Vol] 9.1 mg/dL Normal 8.5-10.1 [facility] Comment on above: Performed By: #### I NSULIN #### [facility] [address] [address] [address] Carolyn King Chloride [Moles/Vol] 103 mmol/L Normal 98-107 [facility] Comment on above: Performed By: #### I NSULIN #### [facility] [address] [place] [address] Dr. Carolyn King CO2 [Moles/Vol] 26.0 mmol/L Normal 21.0-32.0 [facility] Comment on above: Performed By: #### I NSULIN #### [facility] [address] [place] [address] Dr. Carolyn King Creatinine [Mass/Vol] 1.09 mg/dL Normal 0.70-1.30 [facility] Comment on above: Performed By: #### I NSULIN #### [facility] [address] [place] [address] Dr. Carolyn King EGFR-AF [facility] >60 Normal >=60 [facility] Comment on above: Performed By: #### I NSULIN #### [facility] [address] [address] [address] Carolyn King EGFR-NON AF [facility] [place] >60 Normal >=60 [facility] Comment on above: Performed By: #### I NSULIN #### [facility] [address] [place] [address] Dr. Carolyn King Globulin (S) [Mass/Vol] 3.8 g/dL Normal [facility] Comment on above: Performed By: #### I NSULIN #### [facility] [address] [address] [address] Carolyn King Glucose [Mass/Vol] 97 mg/dL Normal 74-106 [facility] Comment on above: Performed By: #### I NSULIN #### [facility] [address] [address] [address] Carolyn King Potassium [Moles/Vol] 3.9 mmol/L Normal 3.5-5.1 [facility] Comment on above: Performed By: #### I NSULIN #### [facility] [address] [address] [address] Carolyn King Protein [Mass/Vol] 7.8 g/dL Normal 6.4-8.2 [facility] Comment on above: Performed By: #### I NSULIN #### [facility] [address] [place] [address] Dr. Carolyn King Sodium [Moles/Vol] 140 mmol/L Normal 136-145 [facility] Comment on above: Performed By: #### I NSULIN #### [facility] [address] [place] [address] Dr. Carolyn King Urea nitrogen [Mass/Vol] 16.0 mg/dL Normal 7.0-18.0 [facility] Comment on above: Performed By: #### I NSULIN #### [facility] [address] [place] [address] Dr. Carolyn King Urea nitrogen/Creatinine [Mass ratio] 14.7 mg/mg Normal [facility] Comment on above: Performed By: #### I NSULIN #### [facility] [address] [address] [address] Carolyn King URINE MICROSCOPIC ONLYon BACTERIA NONE SEEN Normal NONE SEEN [facility] Comment on above: Performed By: #### I NSULIN #### [facility] [address] [place] [address] Dr. Carolny King Bacteria identified Cx Nom (U) NOT INDICATED Normal [facility] Comment on above: Performed By: #### I NSULIN #### [facility] [address] [place] [address] Dr. Carolyn King CAST NONE SEEN Normal NONE SEEN [facility] Comment on above: Performed By: #### I NSULIN #### [facility] [address] [place] [address] Dr. Carolyn King Crystals LM Nom (Urine sed) NONE SEEN Normal NONE SEEN [facility] Comment on above: Performed By: #### I NSULIN #### [facility] [address] [place] [address] Dr. Carolyn King Epithelial cells LM Ql (Urine sed) NONE SEEN Normal NONE SEEN /RARE [facility] Comment on above: Performed By: #### I NSULIN #### [facility] [address] [place] [address] Dr. Carolyn King MUCOUS NONE SEEN Normal NONE SEEN [facility] Comment on above: Performed By: #### I NSULIN #### [facility] [address] [place] [address] Dr. Carolyn King RBC 2-5 Abnormal 0-2 [facility] Comment on above: Performed By: #### I NSULIN #### [facility] [address] [place] [address] Dr. Carolyn King WBC 0-2 Abnormal NONE SEEN [facility] Comment on above: Performed By: #### I NSULIN #### [facility] [address] [place] [address] Dr. Carolyn King US SINGLE QUAD RT [...] by: BANDAR QUEZADA Date: 2022-01-05 10:15 Normal [facility] NM HEPATOBILIARY SCAN W EFon 12-27-2021 PR HEPATOBILIARY SCAN W EF HISTORY: Right upper [...] LAURY SNYDER Date: 2021-12-27 12:16 Normal [facility] CT ABD/PELV W CONon 12-12-19 [...] by: LAURY ZEPEDA Date: 2021-12-11 07:30 Normal [facility] CREATININEon 12-09-2021 Creatinine [Mass/Vol] 0.98 mg/dL Normal 0.70-1.30 [facility] Comment on above: Performed By: #### I NSULIN #### [facility] [address] [address] [address] Carolyn King EGFR-AF [facility] [place] >60 Normal >=60 [facility] Comment on above: Performed By: #### I NSULIN #### [facility] [address] [address] [address] Carolyn King EGFR-NON AF [facility] [place] >60 Normal >=60 [facility] Comment on above: Performed By: #### I NSULIN #### [facility] [address] [address] [address] Carolyn King BN SPINE, LUMBOSACRAL; 2 OR 3 VIEWSon 11-08-2021 BN SPINE, LUMBOSACRAL; 2 OR 3 VIEWS Patient Name: JAY CARR STUDY: Lumbar spine dated 11/08/2021. INDICATION: AP/LAT M54.50: Lumbar back pain M48.062: Lumbar stenosis with neurogenic claudication COMPARISON: None. ACCESSION NUMBER(S): [id number] ORDERING CLINICIAN: KENTON LAWSON TECHNIQUE: AP and [...] above. Electronically signed by: BATSHEVA VIDAL MD [facility] (Orthopaedic Surgery )on 11-08-2021 [...] Work Phone: CBCon 09-29-2021 HCT Canceled Normal [facility] Comment on above: Order Comment: TEST CBC WAS CANCELLED, 09/29/2021 08:10 NO SPECIMEN RECEIVED IN LAB. Performed By: #### C BC ####[id number] [place] [address] HGB Canceled Normal [facility] Comment on above: Order Comment: TEST CBC WAS CANCELLED, 09/29/2021 08:10 NO SPECIMEN RECEIVED IN LAB. Performed By: #### C BC ####[id number] [place] [address] MCHC Canceled Normal [facility] Comment on above: Order Comment: TEST CBC WAS CANCELLED, 09/29/2021 08:10 NO SPECIMEN RECEIVED IN LAB. Performed By: #### C BC ####[id number] [place] [address] MCV Canceled Normal [facility] Comment on above: Order Comment: TEST CBC WAS CANCELLED, 09/29/2021 08:10 NO SPECIMEN RECEIVED IN LAB. Performed By: #### C BC ####[id number] [place] [address] NUCLEATED RBC Canceled Normal [facility] Comment on above: Order Comment: TEST CBC WAS CANCELLED, 09/29/2021 08:10 NO SPECIMEN RECEIVED IN LAB. Performed By: #### C BC ####[id number] [place] [address] PLT Canceled Normal [facility] Comment on above: Order Comment: TEST CBC WAS CANCELLED, 09/29/2021 08:10 NO SPECIMEN RECEIVED IN LAB. Performed By: #### C BC ####[id number] [place] [address] RBC Canceled Normal [facility] Comment on above: Order Comment: TEST CBC WAS CANCELLED, 09/29/2021 08:10 NO SPECIMEN RECEIVED IN LAB. Performed By: #### C BC ####[id number] [place] [address] RDW-CV Canceled Normal [facility] Comment on above: Order Comment: TEST CBC WAS CANCELLED, 09/29/2021 08:10 NO SPECIMEN RECEIVED IN LAB. Performed By: #### C BC ####[id number] [place] [address] WBC Canceled Normal [facility] Comment on above: Order Comment: TEST CBC WAS CANCELLED, 09/29/2021 08:10 NO SPECIMEN RECEIVED IN LAB. Performed By: #### C BC ####[id number] [place] [address] BASIC METABOLIC PANELon ANION GAP Canceled Normal [facility] Comment on above: Order Comment: TEST BASIC METABOLIC PANEL WAS CANCELLED, 09/28/2021 04:56 Performed By: #### B MP ####[id number] [place] [address] BICARBONATE Canceled Normal [facility] Comment on above: Order Comment: TEST BASIC METABOLIC PANEL WAS CANCELLED, 09/28/2021 04:56 Performed By: #### B MP ####[id number] [place] [address] CALCIUM Canceled Normal [facility] Comment on above: Order Comment: TEST BASIC METABOLIC PANEL WAS CANCELLED, 09/28/2021 04:56 Performed By: #### B MP ####[id number] [place] [address] CHLORIDE Canceled Normal [facility] Comment on above: Order Comment: TEST BASIC METABOLIC PANEL WAS CANCELLED, 09/28/2021 04:56 Performed By: #### B MP ####[id number] [place] [address] CREATININE Canceled Normal [facility] Comment on above: Order Comment: TEST BASIC METABOLIC PANEL WAS CANCELLED, 09/28/2021 04:56 Performed By: #### B MP ####[id number] [place] [address] eGFR FEMALE Canceled Normal [facility] Comment on above: Order Comment: TEST BASIC METABOLIC PANEL WAS CANCELLED, 09/28/2021 04:56 Result Comment: CALC ULATIONS OF ESTIMATED GFR ARE PERFORMED USING THE 2020 CKD-EPI STUDY REFIT EQUATION WITHOUT THE RACE VARIABLE FOR THE IDMS-TRACEABLE CREATININE METHODS. https://jasn.asnjournals.org/content/early//ASN.82375 82689 Performed By: #### B MP ####[id number] [place] [address] eGFR MALE Canceled Normal [facility] Comment on above: Order Comment: TEST BASIC METABOLIC PANEL WAS CANCELLED, 09/28/2021 04:56 Result Comment: CALC ULATIONS OF ESTIMATED GFR ARE PERFORMED USING THE 2020 CKD-EPI STUDY REFIT EQUATION WITHOUT THE RACE VARIABLE FOR THE IDMS-TRACEABLE CREATININE METHODS. https://jasn.asnjournals.org/content//ASN.36966 91730 Performed By: #### B MP ####[id number] [place] [address] GLUCOSE Canceled Normal [facility] Comment on above: Order Comment: TEST BASIC METABOLIC PANEL WAS CANCELLED, 09/28/2021 04:56 Performed By: #### B MP ####[id number] [place] [address] POTASSIUM Canceled Normal [facility] Comment on above: Order Comment: TEST BASIC METABOLIC PANEL WAS CANCELLED, 09/28/2021 04:56 Performed By: #### B MP ####[id number] [place] [address] SODIUM Canceled Normal [facility] Comment on above: Order Comment: TEST BASIC METABOLIC PANEL WAS CANCELLED, 09/28/2021 04:56 Performed By: #### B MP ####[id number] [place] [address] UREA NITROGEN Canceled Normal [facility] Comment on above: Order Comment: TEST BASIC METABOLIC PANEL WAS CANCELLED, 09/28/2021 04:56 Performed By: #### B MP ####[id number] [place] [address] BASIC METABOLIC PANELon 04-0 Anion gap [Moles/Vol] 16 mmol/L Normal 10 - 20 [facility] Comment on above: Performed By: #### B MP #### [facility] [address] [place] [address] Calcium [Mass/Vol] 9.0 mg/dL Normal 8.6 - 10.6 [facility] Comment on above: Performed By: #### B MP #### [facility] [address] [place] [address] Chloride [Moles/Vol] 103 mmol/L Normal 98 - 107 [facility] Comment on above: Performed By: #### B MP #### [facility] [address] [place] [address] Creatinine [Mass/Vol] 0.83 mg/dL Normal 0.50 - 1.30 [facility] Comment on above: Performed By: #### B MP #### [facility] [address] [place] [address] eGFR MALE >90 Normal >90 [facility] Comment on above: Result Comment: CALC ULATIONS OF ESTIMATED GFR ARE PERFORMED USING THE 2020 CKD-EPI STUDY REFIT EQUATION WITHOUT THE RACE VARIABLE FOR THE IDMS-TRACEABLE CREATININE METHODS. https://jasn.asnjournals.org/content/early//ASN.48659 09384 Performed By: #### B MP #### [facility] [address] [place] [address] Glucose [Mass/Vol] 141 mg/dL High 74 - 99 [facility] Comment on above: Performed By: #### B MP #### [facility] [address] [place] [address] HCO3 (Bld) [Moles/Vol] 24 mmol/L Normal 21 - 32 [facility] Comment on above: Performed By: #### B MP #### [facility] [address] [place] [address] Potassium [Moles/Vol] 4.4 mmol/L Normal 3.5 - 5.3 [facility] Comment on above: Performed By: #### B MP #### [facility] [address] [place] [address] Sodium [Moles/Vol] 139 mmol/L Normal 136 - 145 [facility] Comment on above: Performed By: #### B MP #### [facility] [address] [place] [address] Urea nitrogen [Mass/Vol] 13 mg/dL Normal 6 - 23 [facility] Comment on above: Performed By: #### B MP #### [facility] [address] [place] [address] CBCon 09-27-2021 HCT Canceled Normal [facility] Comment on above: Order Comment: TEST URINALYSIS WAS CANCELLED, 09/19/2021 12:02 DUPLICATE ORDER. Performed By: #### U A #### [facility] [address] [place] [address] HGB Canceled Normal [facility] Comment on above: Order Comment: TEST URINALYSIS WAS CANCELLED, 09/19/2021 12:02 DUPLICATE ORDER. Performed By: #### U A #### [facility] [address] [place] [address] MCHC Canceled Normal [facility] Comment on above: Order Comment: TEST URINALYSIS WAS CANCELLED, 09/19/2021 12:02 DUPLICATE ORDER. Performed By: #### U A #### [facility] [address] [place] [address] MCV Canceled Normal [facility] Comment on above: Order Comment: TEST URINALYSIS WAS CANCELLED, 09/19/2021 12:02 DUPLICATE ORDER. Performed By: #### U A #### [facility] [address] [place] [address] NUCLEATED RBC Canceled Normal [facility] Comment on above: Order Comment: TEST URINALYSIS WAS CANCELLED, 09/19/2021 12:02 DUPLICATE ORDER. Performed By: #### U A #### [facility] [address] [place] [address] PLT Canceled Normal [facility] Comment on above: Order Comment: TEST URINALYSIS WAS CANCELLED, 09/19/2021 12:02 DUPLICATE ORDER. Performed By: #### U A #### [facility] [address] [place] [address] RBC Canceled Normal [facility] Comment on above: Order Comment: TEST URINALYSIS WAS CANCELLED, 09/19/2021 12:02 DUPLICATE ORDER. Performed By: #### U A #### [facility] [address] [place] [address] RDW-CV Canceled Normal [facility] Comment on above: Order Comment: TEST URINALYSIS WAS CANCELLED, 09/19/2021 12:02 DUPLICATE ORDER. Performed By: #### U A #### [facility] [address] [place] [address] WBC Canceled Normal [facility] Comment on above: Order Comment: TEST URINALYSIS WAS CANCELLED, 09/19/2021 12:02 DUPLICATE ORDER. Performed By: #### U A #### [facility] [address] [place] [address] Erythrocyte distribution width (RBC) [Ratio] 13.1 % Normal 11.5 - 14.5 [facility] Comment on above: Performed By: #### U A #### [facility] [address] [place] [address] Hematocrit (Bld) [Volume fraction] 41.3 % Normal 41.0 - 52.0 [facility] Comment on above: Performed By: #### U A #### [facility] [address] [place] [address] Hemoglobin (Bld) [Mass/Vol] 14.1 g/dL Normal 13.5 - 17.5 [facility] Comment on above: Performed By: #### U A #### [facility] [address] [place] [address] MCHC (RBC) [Mass/Vol] 34.1 g/dL Normal 32.0 - 36.0 [facility] Comment on above: Performed By: #### U A #### [facility] [address] [place] [address] MCV (RBC) [Entitic vol] 93 fL Normal 80 - 100 [facility] Comment on above: Performed By: #### U A #### [facility] [address] [place] [address] NUCLEATED RBC 0.0 /100 WBC Normal 0.0-0.0 [facility] Comment on above: Performed By: #### U A #### [facility] [address] [place] [address] Platelets (Bld) [#/Vol] 217 10*3/uL Normal 150 - 450 [facility] Comment on above: Performed By: #### U A #### [facility] [address] [place] [address] RBC 4.42 x10E12/L Low 4.50 - 5.90 [facility] Comment on above: Performed By: #### U A #### [facility] [address] [place] [address] WBC (Bld) [#/Vol] 13.6 10*3/uL High 4.4 - 11.3 [facility] Comment on above: Performed By: #### U A #### [facility] [address] [place] [address] Daily Progress Note-Orthopae kaison 09-27-2021 Daily Progress Note-Orthopaedics Service: Orthopaedics Subjective Data: JAY CARR is a 61 year old Male who is Hospital Day # 2 and POD #1 for 1. XLIF L3/4, 4/5;2. Navigated percutaneous PSIF L3-5. Patient resting comfortably in bed. Pain well controlled. Denies CP, SOB, F/C, N/V. No new N/T. Objective Data: Objective Information: T PRBPMAPSpO2 [id number]/7598% Date/Time09/27 5: 5: 5: 5: 5:39 Range(36.5C [...] Recent Arterial Blood Gas Results 09/26/2021 12:37 [id number] pH7.37 fEK211 [id number] Base Excess0.8null Assessment and Plan: Code Status: Code StatusFull Code Assessment: 61 y/o male s/p L3/4-4/5 XLIF, L3-5 perc PSIF on 09/26/[address] Richardson, doing well. Plan: - WB status: WBAT, no excessive bending/twisting - DVT ppx: SCDs + Teds at all times while in bed, ambulation - Diet: Clear liquid diet, ADAT to regular - REAL ESTATE CLOSING COORDINATOR => PO pain medication per pain protocol [...] Timothy Steinberg M.D. Orthopaedic Surgery, PGY-2 Pager: [phone] Orthopaedic Spine Team Brannon Steinberg, PGY-2 [phone] - 1st call Orquidea Akbar PGY-4 [phone] - 2nd call Available via [employer] After 5pm-7am, weekends, holidays please page [phone] for communications operator resident for urgent questions/concerns. Attestation: Note Completion: [...] the note. I personally evaluated the patient [id number] Electronic Signatures: Sal Richardson) (Signed 29-Sep-2021 11:37) Authored: Note Completion Co-Signer: Service, Subjective Data, Objective Data, Assessment and Plan, Note Completion Timothy Steinberg (Resident)) (Signed 27-Sep-2021 06:49) Authored: Service, Subjective Data, Objective Data, Assessment and Plan, Note Completion Last Updated: 29-Sep-2021 11:37 by aSl Richardson) Normal [facility] Order Reconciliationon 09-27 Order Reconciliation [...] unarousable, and respiratory rate lessClinician Notes: HOLD REAL ESTATE CLOSING COORDINATOR Infusion and notify H.O. immediately 26-Sep-2021 15:16 [...] at Discharge: (more content not included)... Normal [facility] PT Evaluation [id number] t - co-tx c/ OT for maximized saon 09-27-2021 PT Evaluation [id number] - co-tx c/ OT for maximized sa Rehab: Info: Mode of Treatmentco-treatment; physical therapy; co-tx c/ OT for maximized safety and mobility Time IN10:00 Time OUT10:27 Total Treatment [id number] Patient in ... at end of sessionchair; alarm on Communicated with ... at end of sessionbedside nurse Patient Effortexcellent Symptoms Noted During/After Treatmentnone Patient Profile Reviewedyes Onset of Illness/Injury or Date of [id number] Reason for ReferralXLIF L3/4, 4/5;2. Navigated percutaneous [...] Mobility/Tone: Bed Mobility Assessment/Interventions supine to sit Vlblpf-tu-Rhe [place] (Bed Mobility)standby assist; 1 person assist Assistive Device (Bed Mobility)bed rails Comment, Bed MobilityPt. educated on log roll Transfer Assessment/Interventions sit to stand transfer; stand to sit transfer; bed to chair transfer Bed-Chair [place] (Transfers)1 person assist; standby assist; verbal cues Sit-Stand [place] (Transfers)standby assist; 1 person assist Sit-Stand Assistive Device (Transfers)no AD Stand-Sit [place] (Transfers)standby assist; 1 person assist Stand-Sit Assistive [...] Motor: Sitting, Static (Balance)SBA Sitting, Dynamic (Balance)SBA Rft-gb-Ojepp (Balance)SBA Standing, Static (Balance)SBA Standing, Dynamic (Balance)SBA [...] goals Thera (more content not included)... Normal [facility] ARTERIAL FULL PANELon 2021 Anion gap [Moles/Vol] 11 mmol/L Normal 10 - 25 [facility] Comment on above: Performed By: #### A FPA4 #### [facility] [address] [place] [address] BASE EXCESS-BLOOD 0.8 mmol/L Normal -2.0 - 3.0 [facility] Comment on above: Performed By: #### A FPA4 #### [facility] [address] [place] [address] BICARB, CALCULATED 26.6 mmol/L High 22.0 - 26.0 [facility] Comment on above: Performed By: #### A FPA4 #### [facility] [address] [place] [address] CALCIUM,IONIZED 1.15 mmol/L Normal 1.10 - 1.33 [facility] Comment on above: Performed By: #### A FPA4 #### [facility] [address] [place] [address] Chloride [Moles/Vol] 102 mmol/L Normal 98 - 107 [facility] Comment on above: Performed By: #### A FPA4 #### [facility] [address] [place] [address] Glucose [Mass/Vol] 114 mg/dL High 74 - 99 [facility] Comment on above: Performed By: #### A FPA4 #### [facility] [address] [place] [address] Hematocrit (Bld) [Volume fraction] 42.0 % Normal 41.0 - 52.0 [facility] Comment on above: Performed By: #### A FPA4 #### [facility] [address] [place] [address] Hemoglobin (Bld) [Mass/Vol] 14.1 g/dL Normal 13.5 - 17.5 [facility] Comment on above: Performed By: #### A FPA4 #### [facility] [address] [place] [address] Lactate [Moles/Vol] 1.3 mmol/L Normal 0.4 - 2.0 [facility] Comment on above: Performed By: #### A FPA4 #### [facility] [address] [place] [address] OXY HGB 97.5 % Normal 94.0 - 98.0 [facility] Comment on above: Performed By: #### A FPA4 #### [facility] [address] [place] [address] Oxygen (Bld) [Partial pressure] 160 mm[Hg] High 85 - 95 [facility] Comment on above: Performed By: #### A FPA4 #### [facility] [address] [place] [address] PATIENT TEMPERATURE 37.0 degrees C Normal [facility] Comment on above: Result Comment: NOTE : PATIENT RESULTS ARE NOT CORRECTED FOR TEMPERATURE. Performed By: #### A FPA4 #### [facility] [address] [place] [address] PCO2 46 mmHg High 38 - 42 [facility] Comment on above: Performed By: #### A FPA4 #### [facility] [address] [place] [address] pH (Bld) 7.37 [pH] Low 7.38 - 7.42 [facility] Comment on above: Performed By: #### A FPA4 #### [facility] [address] [place] [address] Potassium [Moles/Vol] 4.8 mmol/L Normal 3.5 - 5.3 [facility] Comment on above: Performed By: #### A FPA4 #### [facility] [address] [place] [address] SO2 100 % Normal 94 - 100 [facility] Comment on above: Performed By: #### A FPA4 #### [facility] [address] [place] [address] Sodium [Moles/Vol] 135 mmol/L Low 136 - 145 [facility] Comment on above: Performed By: #### A FPA4 #### [facility] [address] [place] [address] Admission Risk Screen - Adul ton 09-26-2021 [...] AlertFor Ebola-like Symptoms: Isolate Patient and Notify Provider/Gymnastics Coach Or Instructor For Contact: Notify Provider/Gymnastics Coach Or Instructor Advance Directive: Advance Directive/DNRno Advance Directive Information [...] Communicatenone Learning Preferencesaudio Cultural Considerationsnone Developmental Considerationsnone Holiness Considerationsnone Learning Assessment (Other Learner): Other learner availableno Depression Screen: During the past month, have you often been bothered by feeling down, depressed or hopelessno During the past month, have you often had little interest or pleasure in doing thingsno Have you had any thoughts of harming anyone elseno [place] Suicide: Risk Screen Not Applicable/Able to Answerable to be screened In the Past Month: Have you wished you were or could go to sleep and not wake upno(1) In the Past Month: Have you had any actual thoughts of killing yourself no(1) Lifetime: Have you ever done, started to do, or prepared to do anything to end your lifeno(1) [place] Suicide Risknegative Adult Nutrition Screen: Have you [...] Spiritual Screen: Are there any cultural, spiritual, pentecostal practices/values/needs that are important for us to knowno CAGE: Is this an injured patient at a Trauma Center ([facility]/Buddy/Bernabe/Chioma /Ender/[place]): no Vaccinations: Vaccination - Influenza Vaccination Screen: Is it flu season (between and September 21)Yes Screening for identified contraindications to influenza vaccinationpatient already received vaccine this season Vaccination - Pneumonia Vaccination Screen: Patient has received a previous pneumonia vaccine:no/unknown... Immunocompetent persons with underlying chronic conditions or r (more content not included)... Normal [facility] Daily Progress Note-Orthopae dicson 09-26-2021 [...] Recent Arterial Blood Gas Results 09/26/2021 12:37 [id number] pH7.37 [id number] Base Excess0.8null Assessment and Plan: Code Status: Code StatusFull Code Assessment: 61 y/o male s/p L3/4-4/5 XLIF, L3-5 perc PSIF on 09/26/[address] Richardson, doing well. Plan: - WB status: WBAT, no excessive bending/twisting - DVT ppx: SCDs + Teds at all times while in bed, ambulation - Diet: Clear liquid diet, ADAT to regular - REAL ESTATE CLOSING COORDINATOR => PO pain medication per pain protocol - 24 hr perioperative abx: clinda x 4 doses - FEN: Continue NS at 100cc/hr; HLIV with good PO intake - Bowel Regimen: Colace, Dulcolax, Senna - PT/OT consult - Continue home medications - Discontinue goodrich catheter POD #1 - Decadron 4mg q6hr x4 doses Dispo: to VERONICA Steinberg M.D. Orthopaedic Surgery, PGY-2 Pager: [phone] Orthopaedic Spine Team Brannon Steinberg, PGY-2 [phone] - 1st call Orquidea Akbar PGY-4 [phone] - 2nd call Available via Doc Halo After 5pm-7am, weekends, holidays please page [phone] for communications operator resident for urgent questions/concerns. Attestation: Note Completion: [...] the note. I personally evaluated the patient [id number] Electronic Signatures: Sal Richardson) (Signed 29-Sep-2021 11:38) Authored: Note Completion Co-Signer: Service, Subjective Data, Objective Data, Assessment and Plan, Note Completion Timothy Steinberg (Resident)) (Signed 26-Sep-2021 15:36) Authored: Service, Subjective Data, Objective Data, Assessment and Plan, Note Completion Last Updated: 29-Sep-2021 11:38 by Sal Richardson) Normal [facility] Discharge Planning [id number] 0 09-26-2021 Discharge Planning Note2 Discharge Planning: Planned Dispositionhome Anticipated Discharge [id number] Discharge Planning 09/27/21 1335 Transitional Care Coordination Progress Note: TCC verified demo is correct. lives at home with . pcp audrey armstrong. received covid vaccine x2 and booster x1. feels safe to return home today Patient discussed during interdisciplinary rounds. Team members present: MD/HEAD GAUGE UNIT OPERATOR, TCC, Plan per Medical/Surgical team: patient goodrich out. legal intern changed to oral with pain control. MR for dc after working with PT OT today Status: inpatient Payor source: commercial Discharge disposition: home no needs per PT OT eval Potential Barriers: ADOD: today Calli Jones RN TCC 09/27/21 Patient discharged home with . Heather Foster RN Assessment: Discharge Planning Assessment [id number] Discharge Planning Assessment Completed bycalli jones RN TCC Primary Contact Name and Numberwife gus- [phone] Prior Level of FunctioningNA Lives Withspouse(1) Living Arrangementshouse(1) Stated Reason for Admissionback and hip pain(1) [place] PCPAudrey Armstrong [facility] [facility]/ Injury/ Need Assist with AmbulationNA DME Supplier Name/NumberNA Home Care Agency/Support ServicesNA Diabetic/Supplies NeededNA Hemodialysis ScheduleNA Resource/Environmental Concernsnone(1) [place](1) Services Anticipated at Transitionnon(1) Readmission Within the Last 30 Daysno previous admission in last 30 days PCP Last Date Seende 2020 InsuranceCommercial Transportation Home [facility] Medication Adherence/Afford/Obtainy es O2 LPMNA Nursing Checklist: Lines/Cathetersremoved/a ppropriate for next level of care Discharge Med Rec Reconciled with Loree Patient has Prescriptionsyes Transportation for Discharge Confirmedyes Follow up Reviewedyes Discharge Instructions Reviewed WithPatient Discharge Instructions Outcomeverbalize recall/understanding Discharge Instructions Review Completed with Patient/Family (diet, activity, pt instructions)yes Discharge Documentation: Discharge/Transfer Date/[id number] 17:00 Discharged Accompanied Byspouse Discharge Modewheelchair Transportation Methodprivate car Code StatusCode Status order at time of discharge: Full Code [place] DNR Form Sent with Patient and/or Familyn/a Valuables/Medications/Be longings Returnedyes [facility] Electronic Signatures: HEDY SHEPPARD) (Signed 26-Sep-2021 21:59) Authored: Discharge Planning, Assessment, Discharge Documentation Heather Foster) (Signed 27-Sep-2021 17:12) Authored: Discharge Planning, Nursing Checklist, Discharge Documentation Calli Jones (RN) (Signed 27-Sep-2021 13:35) Authored: Discharge Planning, Assessment Last Updated: 27-Sep-2021 17:12 by Heather Foster (RN) References: 1. Data Referenced From Patient Profile - Adult v2 26-Sep-2021 21:07 Normal [facility] Discharge [id number] Discharge Profile2 Discharge Orders: Anticipated Discharge Date: Anticipated Discharge [id number] Problem List: Additional Dx: Lumbar radicular pain: [...] ANTONIO REMOVED IN 3 WKS. AT [facility]IN F[facility] [address] [facility]/18/2021 AT 0930 WITH KENTON SANTIAGO. REHAB FACILITIES OR HOME CARE MAY REMOVE ANTONIO OR SUTURES. Wound Care 2: Wound SiteBACK (Lumbar Spine) Wound Typesurgical incision Change Dressingdaily Cleanse Withsoap and water Cover Withabdominal dressing Tape Withpaper tape Instructionsno lotions, creams, or tub soaks Other InstructionsPLEASE HAVE ANTONIO REMOVED IN 3 WKS. AT MAIN FRIEND [address] [facility] 5TH FLOOR ON 10/18/2021 AT 0930 [...] floor. Patient was initially started on dilaudid REAL ESTATE CLOSING COORDINATOR x24 hours and then transitioned to an [...] 27-Sep-2021 13:45:17 Appointments: Follow-Up Appointment 01: Physician/Dept/Kyree . Sal Richardson/ Orthopaedic Surgery/ Spine Reason for ReferralPostoperative Follow-Up Appointment Call to Schedule in6 weeks, PLEASE CALL [phone] TO SCHEDULE YOUR AMBER (more content not included)... Normal [facility] - [facility] PREOPERATIVE DIAGNOSIS: Spinal stenosis and spondylolisthesis L3-4 and L4-5 in a patient with unrelenting claudication and radiculopathy. POSTOPERATIVE DIAGNOSIS: Spinal stenosis and spondylolisthesis L3-4 and L4-5 in a patient with unrelenting claudication and radiculopathy. OPERATION/PROCEDURE: Anterior lumbar interbody fusion by extreme lateral approach at L3-4 and L4-5 with use of interbody cage device x2. SURGEON: Sal Richardson MD. PROFESSOR OF RHETORIC(S): assistant account executive: Cb Casanova PA-C. Second licensed investment sales assistant: Brannon Steinberg, second resident. ANESTHESIA: ESTIMATED [...] Deep layers were repaired using 0 Vicryl lcjayp-qo-valrg sutures, deep dermal layer was repaired using 2-0 Vicryl sutures, and the skin was repaired using antonio. Dry sterile dressing was ap (more content not included)... Normal [facility] Operative Reports - [facility] PREOPERATIVE DIAGNOSIS: POSTOPERATIVE DIAGNOSIS: OPERATION/PROCEDURE: Posterior spinal [...] Deep layers were repaired using 0 Vicryl nkyjcw-yh-hzppd sutures, deep dermal layer was repaired using [...] instrumentation and fusion. SURGEON: Sal Richardson MD. PROFESSOR OF RHETORIC(S): ANESTHESIA: This is part 2 of a two-staged procedure. Part 1 was dictated in dictation #[id number]. Refer to dictation #[id number] for all details regarding the first part of the surgery. Sal Richardson MD EST EST DICTATION NUMBER: [id number] INTERNAL JOB NUMBER: [id number] CC: Sal Richardson MD, Electronic Signatures: Sal Richardson) (Signed on 03-Oct-2021 12:03) Authored Unsigned, Draft (SYS GENERATED) (Entered on 30-Sep-2021 07:37) Entered Last Updated: 03-Oct-2021 12:03 by Sal Richardson) [facility] Order Reconciliationon 09-26 Order Reconciliation Page 1 Admission Reconciliation Document Reconciliation Type: Admission from OR requested on behalf of Timothy Steinberg (Resident) done by Timothy Steinberg (Resident)) Admission from OR - Reconciliation: 26-Sep-2021 18:10 by: Timothy Steinberg (Resident)) Home MedicationsEnteredLast Dose TakenReconciled with current Order Reconciliation Comment/ Additional Information hydroxychloroquine 200 mg oral tablet 1 tab(s) oral 2 times a [id number]-Sep-2021 Hydroxychloroquine - PEDS Tablet (PLAQUENIL)DOSE = 200 mg Oral 2 Times a Dayhydroxychloroquine 200 mg oral tablet continued as the inpatient order Hydroxychloroquine - PEDS irbesartan 300 mg oral tablet 1 tab(s) oral once a [id number] 2 Reviewed and Held methocarbamol 500 mg oral tablet 2 tab(s) oral every 8 -[id number]-Sep-2021 Reviewed and Held NIFEdipine 30 mg oral tablet, extended release 1 tab(s) oral once a day NIFEdipine (PROCARDIA XL) Extended Release Tablet, Extended ReleaseDOSE = 30 mg Oral DailyNIFEdipine 30 mg oral tablet, extended release continued as the inpatient order NIFEdipine (PROCARDIA XL) Extended Release pantoprazole 40 mg oral delayed release tablet 1 tab(s) oral once a day [id number] Pantoprazole Enteric Coated Tablet (PROTONIX)DOSE = 40 mg Oral Dailypantoprazole 40 mg oral delayed release tablet continued as the inpatient order Pantoprazole tiZANidine 4 mg oral tablet 1 oral Reviewed and Held Vitamin C 1 3 times a [id number] 2 Reviewed and Held Vitamin D3 1 3 times a [id number]-959 2 Reviewed and Held Zinc 140 mg [...] of 4 mg regardless of dose. HYDROmorphone REAL ESTATE CLOSING COORDINATOR 25 mg/ NaCL 0.9% 50 mL (DILAUDID IV REAL ESTATE CLOSING COORDINATOR)DEMAND/ REAL ESTATE CLOSING COORDINATOR Dose = 0.2 mgDELAY/ Lockout Time Period [...] unarousable, and respiratory rate lessClinician Notes: HOLD REAL ESTATE CLOSING COORDINATOR Infusion and notify H.O. immediately Ondansetron Injectable [...] hours: Do NOT use with Bisacodyl. Normal [facility] Patient Profile - Adult v2on 09-26-2021 Patient Profile - Adult v2 Profile: Initial Info: How to be AddressedPaul(1) Spoken Language PreferredEnglish (1) Stated Reason for Admissionback and hip pain Wants Family/Rep Notified of Admissionno Notify PCPdo not notify PCP Informed of Patient Visiting Rightsyes [place] Patient Belongingsremains with patient Patient Belongings Remaining [...] From 1. Vital Signs 26-Sep-2021 07:09 Normal [facility] Patient Profile - Preop v3on 09-26-2021 Patient Profile - Preop v3 Patient Profile - Preop: Initial Info: Patient DemographicsName: JAY CARR Date: 1960 Address: [address] [place] [address] [place] [address] Primary Phone [phone] How to be AddressedPaul Spoken Language PreferredEnglish [...] Withspouse Living Arrangementshouse Resource/Environmental Concernsnone [facility] Anticipated at Transitionnone Tobacco Use: Tobacco Useno Pre-op Checklist: Arrival [id number]-7313 NPOyes ID Band On Patientpatient ID (name), [...] 26-Sep-2021 07:11 by Maisha Meyer (ALICE) Normal [facility] CORONAVIRUS 2019, SCREEN ASY MPTOMATICon 09-25-2021 SARS-CoV-2 (COVID-19) RNA LU+probe Ql (Unsp spec) Not detected Normal Not Detected [facility] Comment on above: Result Comment: [...] patient management decisions. Fact sheet for providers: https://www.fda.gov/media/615152/download Fact sheet for patients: https://www.fda.gov/media/578411/download This test has received FDA Emergency Use Authorization (EUA) and has been verified by [facility] ([facility]). This test is only authorized for the duration of time that circumstances exist to justify the authorization of the emergency use of in vitro diagnostic tests for the detection of SARS-CoV-2 virus and/or diagnosis of COVID-19 infection under section 564(b)(1) of the Act, 21 U.S.C. 360bbb-3(b)(1), unless the authorization is terminated or revoked sooner. [facility] is certified under CLIA-88 as qualified to perform high complexity testing. Testing is performed in the [facility] laboratories located at [address] [place] [address]. Performed By: #### U ARFX #### [place] [address] Lab Specimen Source Nasal, Nasopharyngeal Normal [facility] Comment on above: Performed By: #### U ARFX #### [place] [address] Covid 19 Resultson 2 SARS-CoV-2 (COVID-19) RNA [...] by the [facility] to see if any of your close [...] or Naproxen (Aleve) can also be used. Nfba-edg-qfnbovw cough and cold medicines can be used according to the instructions on the package. Some wxzq-cnl-chzyman medicines also contain acetaminophen. Make sure you [...] water are not available, use alcohol-based hand principal bioinformatics specialist. Avoid touching your eyes, nose, and mouth [...] 24 mary (more content not included)... Normal [facility] COAGULATION SCREENon 022 aPTT Coag (Bld) [Time] 34 s Normal 26 - 39 [facility] Comment on above: Result Comment: THE APTT IS NO LONGER USED FOR MONITORING UNFRACTIONATED HEPARIN THERAPY. FOR MONITORING HEPARIN THERAPY, USE THE HEPARIN ASSAY. Performed By: #### U ARFX #### [facility] [address] [place] [address] PT Coag (PPP) [Time] 11.1 s Normal 9.8 - 13.4 [facility] Comment on above: Performed By: #### U ARFX #### [facility] [address] [place] [address] PT, INR 1.0 Normal 0.9 - 1.1 [facility] Comment on above: Performed By: #### U ARFX #### [facility] [address] [place] [address] Laboratory - Blood bankon ABO group Nom [...] SCREEN PATIENT: JAY CARR LOCATION: [facility] STOLL#: [id number] : 62 AGE: SEX: M ORDERED BY: SAL RICHARDSON SOURCE: ANTERIOR NARES COLLECTED: 09/19/21 10:10 ANTIBIOTICS AT BRAEDEN.: RECEIVED : 09/19/21 12:47 SITE: Nasal R E S U L T S STAPH/MRSA SCREEN FINAL 09/20/21 13:57 NO Staphylococcus aureus ISOLATED. Normal [facility] Comment on above: Performed By: #### S TAPH #### [facility] [address] [place] [address] TYPE + SCREENon 09-19-2021 ABO TYPE O Normal [facility] Comment on above: Performed By: #### T +S #### [facility] [address] [place] [address] RH TYPE Negative Normal [facility] Comment on above: Performed By: #### T +S #### [facility] [address] [place] [address] URINALYSISon 09-19-2021 Appearance (U) Canceled Normal [facility] Comment on above: Order Comment: TEST URINALYSIS WAS CANCELLED, 09/19/2021 12:02 DUPLICATE ORDER. Performed By: #### U A #### [facility] [address] [place] [address] ASCORBIC ACID Canceled Normal [facility] Comment on [...] hours. Performed By: #### U A #### [facility] [address] [place] [address] Bilirubin Ql (U) Canceled Normal [facility] Comment on above: Order Comment: TEST URINALYSIS WAS CANCELLED, 09/19/2021 12:02 DUPLICATE ORDER. Performed By: #### U A #### [facility] [address] [place] [address] Color (U) Canceled Normal [facility] Comment on above: Order Comment: TEST URINALYSIS WAS CANCELLED, 09/19/2021 12:02 DUPLICATE ORDER. Performed By: #### U A #### [facility] [address] [place] [address] Glucose Ql (U) Canceled Normal [facility] Comment on above: Order Comment: TEST URINALYSIS WAS CANCELLED, 09/19/2021 12:02 DUPLICATE ORDER. Performed By: #### U A #### [facility] [address] [place] [address] Hemoglobin Ql (U) Canceled Normal [facility] Comment on above: Order Comment: TEST URINALYSIS WAS CANCELLED, 09/19/2021 12:02 DUPLICATE ORDER. Performed By: #### U A #### [facility] [address] [place] [address] Ketones Ql (U) Canceled Normal [facility] Comment on above: Order Comment: TEST URINALYSIS WAS CANCELLED, 09/19/2021 12:02 DUPLICATE ORDER. Performed By: #### U A #### [facility] [address] [place] [address] Leukocyte esterase Test strip Ql (U) Canceled Normal [facility] Comment on above: Order Comment: TEST URINALYSIS WAS CANCELLED, 09/19/2021 12:02 DUPLICATE ORDER. Performed By: #### U A #### [facility] [address] [place] [address] Nitrite Ql (U) Canceled Normal [facility] Comment on above: Order Comment: TEST URINALYSIS WAS CANCELLED, 09/19/2021 12:02 DUPLICATE ORDER. Performed By: #### U A #### [facility] [address] [place] [address] pH Canceled Normal [facility] Comment on above: Order Comment: TEST URINALYSIS WAS CANCELLED, 09/19/2021 12:02 DUPLICATE ORDER. Performed By: #### U A #### [facility] [address] [place] [address] Protein Ql (U) Canceled Normal [facility] Comment on above: Order Comment: TEST URINALYSIS WAS CANCELLED, 09/19/2021 12:02 DUPLICATE ORDER. Performed By: #### U A #### [facility] [address] [place] [address] Specific gravity (U) [Rel density] Canceled Normal [facility] Comment on above: Order Comment: TEST URINALYSIS WAS CANCELLED, 09/19/2021 12:02 DUPLICATE ORDER. Performed By: #### U A #### [facility] [address] [place] [address] UROBILINOGEN Canceled Normal [facility] Comment on above: Order Comment: TEST URINALYSIS WAS CANCELLED, 09/19/2021 12:02 DUPLICATE ORDER. Performed By: #### U A #### [facility] [address] [place] [address] URINALYSIS WITH CULTURE IF I NDICATEDon 09-19-2021 Appearance (U) CLEAR Normal CLEAR [facility] Comment on above: Performed By: #### U ARFX #### [facility] [address] [place] [address] Bilirubin Ql (U) Negative Normal NEGATIVE [facility] Comment on above: Performed By: #### U ARFX #### [facility] [address] [place] [address] Color (U) YELLOW Normal STRAW,YELL OW [facility] Comment on above: Performed By: #### U ARFX #### [facility] [address] [place] [address] Glucose Ql (U) Negative Normal NEGATIVE [facility] Comment on above: Performed By: #### U ARFX #### [facility] [address] [place] [address] Hemoglobin Ql (U) Negative Normal NEGATIVE [facility] Comment on above: Performed By: #### U ARFX #### [facility] [address] [place] [address] Ketones Ql (U) Negative Normal NEGATIVE [facility] Comment on above: Performed By: #### U ARFX #### [facility] [address] [place] [address] Leukocyte esterase Test strip Ql (U) Negative Normal NEGATIVE [facility] Comment on above: Performed By: #### U ARFX #### [facility] [address] [place] [address] Nitrite Ql (U) Negative Normal NEGATIVE [facility] Comment on above: Performed By: #### U ARFX #### [facility] [address] [place] [address] pH (U) 6.0 [pH] Normal 5.0 - 8.0 [facility] Comment on above: Performed By: #### U ARFX #### [facility] [address] [place] [address] Protein Ql (U) Negative Normal NEGATIVE [facility] Comment on above: Performed By: #### U ARFX #### [facility] [address] [place] [address] Specific gravity (U) [Rel density] 1.016 Normal 1.005 - 1.035 [facility] Comment on above: Performed By: #### U ARFX #### [facility] [address] [place] [address] Urobilinogen (U) [Mass/Vol] mg/dL Normal 0.0 - 1.9 [facility] Comment on above: Performed By: #### U ARFX #### [facility] [address] [place] [address] Color (U) YELLOW See Below [facility] [...] may no (more content not included)... 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 COMPARISON: None. ACCESSION NUMBER(S): [id number] ORDERING CLINICIAN: SAL RICHARDSON FINDINGS: C-spine, two views Anterior spinal fusion C5-C7 with intact hardware. There is normal alignment. No fracture. No degenerative changes seen. IMPRESSION: Anterior spinal fusion C5-C7 without evidence hardware failure Electronically signed by: JULIA ARAIZA MD Normal [facility] CORONAVIRUS 2018, SCREEN ASY MPTOMATICon 07-05-2021 DATE OF SYMPTOM ONSET [[id number]]? Canceled Normal [facility] Comment on above: Order Comment: TEST CORONAVIRUS 2018, SCREEN ASYMPTOMATIC WAS CANCELLED, 07/05/2021 13:31 ptdid not have test done.. Performed By: #### U ARFX #### [facility] [address] [place] [address] SARS-CoV-2 (COVID-19) RNA LU+probe Ql (Unsp spec) Canceled Normal [facility] Comment on above: Order Comment: [...] patient management decisions. Fact sheet for providers: https://www.fda.gov/media/903930/download Fact sheet for patients: https://www.fda.gov/media/991075/download This test has received FDA Emergency Use Authorization (EUA) and has been verified by [facility] ([facility]). This test is only authorized for the duration of time that circumstances exist to justify the authorization of the emergency use of in vitro diagnostic tests for the detection of SARS-CoV-2 virus and/or diagnosis of COVID-19 infection under section 564(b)(1) of the Act, 21 U.S.C. 360bbb-3(b)(1), unless the authorization is terminated or revoked sooner. [facility] is certified under CLIA-88 as qualified to perform high complexity testing. Testing is performed in the [facility] laboratories located at [address] [place] [address]. Performed By: #### U ARFX #### [place] [address] ABO/RH GROUP TESTon 06-21-20 21 ABO TYPE O Normal [facility] Comment on above: Performed By: #### U ARFX #### [place] [address] RH TYPE Negative Normal [facility] Comment on above: Performed By: #### U ARFX #### [place] [address] Operative Reports - [facility] Operative Reports - [address] [place] [address] Patient Name: PAUL. Trena CARR : 1960 Date of Service: 06/21/2021 Patient Location: [place] [address] Patient Type: O Surgeon: Sal Richardson MD [...] anterior plate instrumentation. SURGEON: Sal Richardson MD PROFESSOR OF RHETORIC(S): Ad Valdivia MD, chief resident. ANESTHESIA: ESTIMATED [...] current moratorium due to short staffing at [facility]. The patient agreed to have the [...] excellent posi (more content not included)... Normal [facility] Order Reconciliationon 06-21 Order Reconciliation [...] a day (more content not included)... Normal [facility] Order Reconciliation Page 1 Admission Reconciliation Document Reconciliation Type: Admission requested on behalf of Cheikh August (Resident) done by Cheikh August ( (Resident)) Admission - Reconciliation: 21-Jun-2021 06:37 by: Cheikh August ( (Resident)) Home MedicationsEnteredLast Dose TakenReconciled with current Order Reconciliation Comment/ Additional Information celecoxib 200 mg oral capsule 1 cap(s) oral 2 times a [id number] Reviewed and Held gabapentin 300 mg oral capsule 1 tab(s) oral once a [id number]-Adh-0180 Reviewed and Held hydroxychloroquine 200 mg oral tablet 1 tab(s) oral 2 times a [id number]-[id number]-8880 Hydroxychloroquine Tablet (PLAQUENIL)DOSE = 200 mg Oral 2 Times a Day hydroxychloroquine 200 mg oral tablet continued as the inpatient order Hydroxychloroquine irbesartan 300 mg oral tablet 1 tab(s) oral once a [id number]-Dgw-7902 Reviewed and Held NIFEdipine 30 mg oral [...] Pantoprazole Vitamin C 1 3 times a sgw53-Hrr-8533 Reviewed and Held Vitamin D3 1 3 times a cjk17-Xey-7998 Reviewed and Held Zinc 140 mg (as elemental zinc 50 mg) oral tablet 1 tab(s) oral once a day 21-Jun-2021 Reviewed and Held Normal [facility] Patient Profile - Preop v3on 06-21-2021 Patient Profile - Preop v3 Patient Profile - Preop: Initial Info: Patient DemographicsName: JAY CRAR Date: 1960 Address: [address] [place] [address] [place] [address] Primary Phone [phone] How to be AddressedPaul Spoken Language PreferredEnglish Source of Informationpatient Stated Reason for Admissionback surgery Primary Contact Name and NumberTreangeline Carr () [phone] Limitations on Visitors/Phone Callsnone Patient Belongings2 bags in pacu, glasses and phone with pt Medications Brought to [facility]: Weight in kg98.9 kilogram(s) Weight in xsa782 pound(s) Weight Methodactual (measured) Scale Typestanding Height [...] Withspouse Living Arrangementshouse Resource/Environmental Concernsnone Anticipated Transition [place] [facility] Anticipated at Transitionnone Tobacco Use: Tobacco Useno Pre-op Checklist: Arrival [id number] Arrival Time06:43 Procedure TypeC5-7 decompression and fusion [...] 21-Jun-2021 06:45 by Maisha Meyer (ALICE) Normal [facility] CORONAVIRUS 2019, SCREEN ASY MPTOMATICon 06-20-2021 SARS-CoV-2 (COVID-19) RNA LU+probe Ql (Unsp spec) Not detected Normal Not Detected [facility] Comment on above: Result Comment: [...] patient management decisions. Fact sheet for providers: https://www.fda.gov/media/145063/download Fact sheet for patients: https://www.fda.gov/media/324651/download This test has received FDA Emergency Use Authorization (EUA) and has been verified by [facility] ([facility]). This test is only authorized for the duration of time that circumstances exist to justify the authorization of the emergency use of in vitro diagnostic tests for the detection of SARS-CoV-2 virus and/or diagnosis of COVID-19 infection under section 564(b)(1) of the Act, 21 U.S.C. 360bbb-3(b)(1), unless the authorization is terminated or revoked sooner. [facility] is certified under CLIA-88 as qualified to perform high complexity testing. Testing is performed in the [facility] laboratories located at [address] [place] [address]. Performed By: #### U ARFX #### [address] [place] [address] Covid 19 Resultson 1 SARS-CoV-2 (COVID-19) RNA [...] by the [facility] to see if any of your close [...] or Naproxen (Aleve) can also be used. Ujdt-fol-yymazpc cough and cold medicines can be used according to the instructions on the package. Some loir-yam-vspgprv medicines also contain acetaminophen. Make sure you [...] water are not available, use alcohol-based hand principal bioinformatics specialist. Avoid touching your eyes, nose, and mouth [...] 24 mary (more content not included)... Normal [facility] CORONAVIRUS 2019, SCREEN ASY MPTOMATICon 06-19-2021 Lab Specimen Source Nasal, Nasopharyngeal Normal [facility] Comment on above: Performed By: #### U ARFX #### [facility] [address] [place] [address] BASIC METABOLIC PANELon 05-24 Anion gap [Moles/Vol] 14 mmol/L Normal 10 - 20 [facility] Comment on above: Performed By: #### B MP #### [facility] [address] [place] [address] Calcium [Mass/Vol] 9.0 mg/dL Normal 8.6 - 10.6 [facility] Comment on above: Performed By: #### B MP #### [facility] [address] [place] [address] Chloride [Moles/Vol] 105 mmol/L Normal 98 - 107 [facility] Comment on above: Performed By: #### B MP #### [facility] [address] [place] [address] Creatinine [Mass/Vol] 0.85 mg/dL Normal 0.50 - 1.30 [facility] Comment on above: Performed By: #### B MP #### [facility] [address] [place] [address] GFR- AM. >60 Normal >60 [facility] Comment on above: Result Comment: CALC ULATIONS OF ESTIMATED GFR ARE PERFORMED USING THE MDRD STUDY EQUATION FOR THE IDMS-TRACEABLE CREATININE METHODS. CLIN CHEM 2007;53:766-72 Performed By: #### B MP #### [facility] [address] [place] [address] GFR-NON AM. >60 Normal >60 [facility] Comment on above: Performed By: #### B MP #### [facility] [address] [place] [address] Glucose [Mass/Vol] 87 mg/dL Normal 74 - 99 [facility] Comment on above: Performed By: #### B MP #### [facility] [address] [place] [address] HCO3 (Bld) [Moles/Vol] 27 mmol/L Normal 21 - 32 [facility] Comment on above: Performed By: #### B MP #### [facility] [address] [place] [address] Potassium [Moles/Vol] 4.7 mmol/L Normal 3.5 - 5.3 [facility] Comment on above: Performed By: #### B MP #### [facility] [address] [place] [address] Sodium [Moles/Vol] 141 mmol/L Normal 136 - 145 [facility] Comment on above: Performed By: #### B MP #### [facility] [address] [place] [address] Urea nitrogen [Mass/Vol] 19 mg/dL Normal 6 - 23 [facility] Comment on above: Performed By: #### B MP #### [facility] [address] [place] [address] CBCon 06-02-2021 Erythrocyte distribution width (RBC) [Ratio] 12.4 % Normal 11.5 - 14.5 [facility] Comment on above: Performed By: #### U A #### [facility] [address] [place] [address] Hematocrit (Bld) [Volume fraction] 43.6 % Normal 41.0 - 52.0 [facility] Comment on above: Performed By: #### U A #### [facility] [address] [place] [address] Hemoglobin (Bld) [Mass/Vol] 14.8 g/dL Normal 13.5 - 17.5 [facility] Comment on above: Performed By: #### U A #### [facility] [address] [place] [address] MCHC (RBC) [Mass/Vol] 33.9 g/dL Normal 32.0 - 36.0 [facility] Comment on above: Performed By: #### U A #### [facility] [address] [place] [address] MCV (RBC) [Entitic vol] 93 fL Normal 80 - 100 [facility] Comment on above: Performed By: #### U A #### [facility] [address] [place] [address] NUCLEATED RBC 0.0 /100 WBC Normal 0.0-0.0 [facility] Comment on above: Performed By: #### U A #### [facility] [address] [place] [address] Platelets (Bld) [#/Vol] 295 10*3/uL Normal 150 - 450 [facility] Comment on above: Performed By: #### U A #### [facility] [address] [place] [address] RBC 4.69 x10E12/L Normal 4.50 - 5.90 [facility] Comment on above: Performed By: #### U A #### [facility] [address] [place] [address] WBC (Bld) [#/Vol] 8.5 10*3/uL Normal 4.4 - 11.3 [facility] Comment on above: Performed By: #### U A #### [facility] [address] [place] [address] COAGULATION SCREENon 021 aPTT Coag (Bld) [Time] 31 s Normal 26 - 39 [facility] Comment on above: Result Comment: Note new reference range as of 05/23/2021 at 10:00am. Performed By: #### U A #### [facility] [address] [place] [address] PT Coag (PPP) [Time] 12.2 s Normal 9.8 - 13.4 [facility] Comment on above: Result Comment: Note new reference range as of 05/23/2021 at 10:00am. Performed By: #### U A #### [facility] [address] [place] [address] PT, INR 1.1 Normal 0.9 - 1.1 [facility] Comment on above: Performed By: #### U A #### [facility] [address] [place] [address] Laboratory - Blood bankon ABO group Nom [...] SCREEN PATIENT: JAY CARR LOCATION: [facility] STOLL#: [id number] : 62 AGE: SEX: M ORDERED BY: SAL RICHARDSON SOURCE: ANTERIOR NARES COLLECTED: 06/02/21 10:59 ANTIBIOTICS AT BRAEDEN.: RECEIVED : 06/02/21 13:35 SITE: Nasal R E S U L T S STAPH/MRSA SCREEN FINAL 06/04/21 07:50 NO Staphylococcus aureus ISOLATED. Normal [facility] Comment on above: Performed By: #### S TAPH #### [facility] [address] [place] [address] TH CHEST 2 VIEW PA AND LATon 06-02-2021 TH CHEST 2 VIEW PA AND LAT Patient Name: JAY CARR STUDY: TH CHEST 2 VIEW PA AND LAT; 06/02/2021 11:10 am INDICATION: covid follow up . COMPARISON: None. ACCESSION NUMBER(S): [id number] ORDERING CLINICIAN: SAL RICHARDSON FINDINGS: PA and [...] as stated. This study was interpreted at [place], [place]. Electronically signed by: RANJIT GONZALES MD Normal [facility] TYPE + SCREENon 06-02-2021 ABO TYPE O Normal [facility] Comment on above: Performed By: #### U A #### [facility] [address] [place] [address] RH TYPE Negative Normal [facility] Comment on above: Performed By: #### U A #### [facility] [address] [place] [address] UA MICROSCOPICon 06-02-2021 CA OXALATE CRYSTAL 3+ /HPF Abnormal [facility] Comment on above: Performed By: #### U A #### [facility] [address] [place] [address] Mucus Ql (Urine sed) 4+ /LPF Normal [facility] Comment on above: Performed By: #### U A #### [facility] [address] [place] [address] RBC 11 /HPF Abnormal 0-5 [facility] Comment on above: Performed By: #### U A #### [facility] [address] [place] [address] SQUAMOUS EPITH. CELLS 1 /HPF Normal [facility] Comment on above: Performed By: #### U A #### [facility] [address] [place] [address] WBC 1 /HPF Normal 0-5 [facility] Comment on above: Performed By: #### U A #### [facility] [address] [place] [address] URINALYSIS WITH CULTURE IF I NDICATEDon 06-02-2021 Appearance (U) HAZY Normal [facility] Comment on above: Performed By: #### U A #### [facility] [address] [place] [address] Bilirubin Ql (U) Negative Normal NEGATIVE [facility] Comment on above: Performed By: #### U A #### [facility] [address] [place] [address] Color (U) YELLOW Normal STRAW,YELL OW [facility] Comment on above: Performed By: #### U A #### [facility] [address] [place] [address] Glucose Ql (U) Negative Normal NEGATIVE [facility] Comment on above: Performed By: #### U A #### [facility] [address] [place] [address] Hemoglobin Ql (U) Negative Normal NEGATIVE [facility] Comment on above: Performed By: #### U A #### [facility] [address] [place] [address] Ketones Ql (U) Negative Normal NEGATIVE [facility] Comment on above: Performed By: #### U A #### [facility] [address] [place] [address] Leukocyte esterase Test strip Ql (U) Negative Normal NEGATIVE [facility] Comment on above: Performed By: #### U A #### [facility] [address] [place] [address] Nitrite Ql (U) Negative Normal NEGATIVE [facility] Comment on above: Performed By: #### U A #### [facility] [address] [place] [address] pH (U) 5.0 [pH] Normal 5.0 - 8.0 [facility] Comment on above: Performed By: #### U A #### [facility] [address] [place] [address] Protein Ql (U) 100 (2+) Abnormal NEGATIVE [facility] Comment on above: Performed By: #### U A #### [facility] [address] [place] [address] Specific gravity (U) [Rel density] 1.026 Normal 1.005 - 1.035 [facility] Comment on above: Performed By: #### U A #### [facility] [address] [place] [address] Urobilinogen (U) [Mass/Vol] mg/dL Normal 0.0 - 1.9 [facility] Comment on above: Performed By: #### U A #### [facility] [address] [place] [address] Color (U) YELLOW See Below [facility] [...] 05-23-2021 Lab Specimen Source Nasal, Nasopharyngeal Normal [facility] Comment on above: Order Comment: TEST CORONAVIRUS 2019, SCREEN ASYMPTOMATIC WAS CANCELLED, 07/05/2021 13:31 ptdid not have test done.. Performed By: #### U ARFX #### [facility] [address] [place] [address] Tobacco Screening.on 021 Fall risk assessment a) [...] COMPARISON: Lumbosacral spine radiographs 02/09/2021 ACCESSION NUMBER(S): [id number] ORDERING CLINICIAN: TONJA GERARDO TECHNIQUE: Sagittal and [...] degenerative disc height loss at L2-L3 with pvuj-be-eyxdqgte height loss at L1-L2. Conus: The lower [...] right, without spinal canal stenosis. There is bsnk-xv-ojneiokk right and mild left neural foraminal narrowing. [...] interpreted at [facility], [place], [place]. Electronically signed by: STEVE YANG MD Normal [facility] No Panel Informationon 02-09 Normal [facility] Work Phone: Please click on the link to view the study images [facility] Work Phone: SPINE, LUMBOSACRAL; MIN 4 EWSon 02-09-2021 SPINE, LUMBOSACRAL; MIN 4 VIEWS Patient Name: JAY CARR STUDY: Lumbar Spine, 4 views. INDICATION: Low back pain COMPARISON: None. ACCESSION NUMBER(S): [id number] ORDERING CLINICIAN: TONJA GERARDO FINDINGS: Grade 1 [...] Electronically signed by: JOSE GOEL MD Normal [facility] MRI L-Ext Joint w/o Contrast LTon [...] formation. No other focal left hip abnormality. [facility] thanks you for the opportunity to care for your patient. Workstation ID: [id number] FINAL REPORT Dictated By: Batsheva Brown MD 01/12/2021 08:43 Assigned Physician: Bastheva Brown MD Reviewed and Electronically Signed By: Batsheva Brown MD 01/12/2021 09:09 Transcribed by: CAROLINA 01/12/2021 08:43 Technologist: AMANDA Normal Basic metabolic 2000 panelon 11-10-2020 Calcium [Mass/Vol] 9.5 mg/dL Normal 8.5-10.6 Chloride [Moles/Vol] 104 mmol/L Normal 98-[address] [facility] CO2 [Moles/Vol] 28 mmol/L Normal 21-32 [facility] Creatinine [Mass/Vol] 0.85 mg/dL Normal 0.55-1.[address] [facility] Glucose [Mass/Vol] 112 mg/dL High 70-99 Potassium [Moles/Vol] 4.2 mmol/L Normal 3.5-5.1 [facility] Sodium [Moles/Vol] 142 mmol/L Normal 136-145 Urea nitrogen (BldV) [Mass/Vol] 20 mg/dL High 7.0-18.0 Urea nitrogen/Creatinine [Mass ratio] 24 mg/mg Normal CBC W Auto Differential pane l (Bld)on 11-10-2020 Basophils (Bld) [#/Vol] 0.0 thou/mcL Normal 0.0-0.2 Basophils/100 WBC (Bld) 0.5 % Normal 0-3 Differential cell count method Nom (Bld) AUTOMATED DIFFERENTIAL Normal [facility] Eosinophils (Bld) [#/Vol] 0.1 thou/mcL Normal 0.0-0.4 Eosinophils/100 WBC (Bld) 0.9 % Normal 0-7 Erythrocyte distribution width (RBC) [Entitic vol] 13.0 % Normal 11.7-15.0 Hematocrit (Bld) [Volume fraction] 43.4 % Normal 34.0-50.0 Hemoglobin (Bld) [Mass/Vol] 15.0 g/dL Normal 11.5-17.0 Lymphocytes (Bld) [#/Vol] 1.0 thou/mcL Normal 0.7-4.5 Lymphocytes/100 WBC (Bld) 15.6 % Normal 14-46 MCH (RBC) [Entitic mass] 32.5 Picograms Normal 27.0-34.0 MCHC (RBC) [Mass/Vol] 34.6 g/dL Normal 32.0-36.0 [facility] MCV (RBC) [Entitic vol] 94.0 fL Normal 80-98 Monocytes (Bld) [#/Vol] 0.6 thou/mcL Normal 0.1-1.0 Monocytes/100 WBC (Bld) 9.8 % Normal 4-13 Neutrophils (Bld) [#/Vol] 4.7 thou/mcL Normal 1.5-7.8 Neutrophils/100 WBC (Bld) 73.2 % Normal 40-74 Platelet mean volume (Bld) [Entitic vol] 9.4 fL Normal 7.5-11.2 Platelets (Bld) [#/Vol] 220 thou/mcL Normal 140-415 RBC (Bld) [#/Vol] 4.62 x(10)6/mcL Normal 3.80-5.60 [facility] WBC (Bld) [#/Vol] 6.5 thou/mcL Normal 4.0-10.5 PT Coag (PPP) [Time]on 11-10 INR Coag (Bld) [Relative time] 0.9 {INR} Normal Comment on above: Result Comment: ENRRIQUE GRIMES THE INDUCTION PHASE OF ORAL ANTICOAGULATION, THE INR MAY NOT REFLECT THE ANTICOAGULANT STATUS OF THE PATIENT. THERAPEUTIC RANGES FOR INR'S ARE: MOST CLINICAL SITUATIONS: INR 2.0-3.0 MECHANICAL PROSTHETIC VALVES: INR 2.5-3.5 CRITICAL: INR 5.0 Prothrombin Timeon PT Coag (PPP) [Time] 12.6 s Normal 11.9-14.6 [facility] aPTT Coag (Bld) [Time]on aPTT Coag (PPP) [Time] 38.6 s High 23.2-34.6 [facility] Vital Signs Date Time Vital Sign Value Performing Clinician Facility 04-13-2024 09:42-0400 Blood Pressure Location Shun CHRIS [facility] [place] [address]-21-2024 09:42-0400 Body temperature 98.6 [degF] Shun COOK [facility] 04-13-2024 09:42-0400 Diastolic blood pressure 88 mm[Hg] Shun COOK [facility] 04-13-2024 09:42-0400 Heart rate 78 /min Shun COOK [facility] 04-13-2024 09:42-0400 Respiratory rate 16 /min Shun COOK [facility] 04-13-2024 09:42-0400 Systolic blood pressure 137 mm[Hg] Shun COOK [facility] 04-08-2023 10:38-0400 Blood Pressure Location Shun COOK [facility] 04-08-2023 10:38-0400 Diastolic blood pressure 82 mm[Hg] Shun COOK [facility] 04-08-2023 10:38-0400 Heart rate 71 /min Shun COOK [facility] 04-08-2023 10:38-0400 Systolic blood pressure 154 mm[Hg] Shun COOK [facility] 10-16-2022 14:18-0400 Blood Pressure Location Shun COOK [facility] 10-16-2022 14:18-0400 Diastolic blood pressure 94 mm[Hg] Shun COOK [facility] 10-16-2022 14:18-0400 Heart rate 72 /min Shun MACHADO [facility] 10-16-2022 14:18-0400 Systolic blood pressure 186 mm[Hg] Shun MACHADO [facility] 10-02-2022 13:36-0400 Blood Pressure Location Arely KRISHNAMURTHYL [facility] [place] 10-02-2022 13:36-0400 Diastolic blood pressure 80 mm[Hg] Arely NILL [facility] [place] 10-02-2022 13:36-0400 Heart rate 76 /min Arely NILL [facility] [place] 10-02-2022 13:36-0400 Respiratory rate 16 /min Arely KRISHNAMURTHYL [facility] [place] 10-02-2022 13:36-0400 Systolic blood pressure 144 mm[Hg] Arely NILL [facility] [place] 02-15-2022 14:19-0400 Diastolic blood pressure 95 mm[Hg] MD Audrey Armstrong Work Phone: [facility] 02-15-2022 14:19-0400 Heart rate 66 /min MD Audrey Armstrong Work Phone: [facility] 02-15-2022 14:19-0400 Respiratory rate 16 /min MD Audrey Armstrong Work Phone: [facility] 02-15-2022 14:19-0400 SaO2% (BldA) [Mass fraction] 99 % MD Audrey Armstrong Work Phone: [facility] 02-15-2022 14:19-0400 Systolic blood pressure 170 mm[Hg] MD Audrey Armstrong Work Phone: [facility] 02-15-2022 13:04-0400 Inhaled oxygen flow rate 6 L/min MD Audrey Armstrong Work Phone: [facility] [facility]2022 12:00-0400 Body weight 42 mg MD Audrey Armstrong Work Phone: [facility] 02-15-2022 10:03-0400 Body height 175.26 cm MD Audrey Armstrong Work Phone: [facility] 02-15-2022 10:03-0400 Body mass index (BMI) [Ratio] 31.3 kg/m2 MD Audrey Armstrong Work Phone: [facility] 02-15-2022 10:03-0400 Body weight 96.16 kg MD Audrey Armstrong Work Phone: [facility] 02-15-2022 07:29-0400 Body temperature 98.8 [degF] MD Audrey Armstrong Work Phone: [facility] 01-24-2022 13:59-0400 Blood Pressure Location Arely NILL [facility] [place] 01-24-2022 13:59-0400 Diastolic blood pressure 74 mm[Hg] Arely NILL [facility] [place] 01-24-2022 13:59-0400 Heart rate 72 /min Arely NILL [facility] [place] 01-24-2022 13:59-0400 Respiratory rate 16 /min Arely NILL [facility] [place] 01-24-2022 13:59-0400 Systolic blood pressure 140 mm[Hg] Arely NILL [facility] [place] 01-19-2022 16:45-0400 Diastolic blood pressure 84 mm[Hg] MD Audrey Armstrong Work Phone: [facility] 01-19-2022 16:45-0400 Heart rate 70 /min MD Audrey Armstrong Work Phone: [facility] 01-19-2022 16:45-0400 Respiratory rate 16 /min MD Audrey Armstrong Work Phone: [facility] 01-19-2022 16:45-0400 SaO2% (BldA) [Mass fraction] 98 % MD Audrey Armstrong Work Phone: [facility] 01-19-2022 16:45-0400 Systolic blood pressure 148 mm[Hg] MD Audrey Armstrong Work Phone: [facility] 01-19-2022 15:04-0400 Body height 177.8 cm MD Audrey Armstrong Work Phone: [facility] 01-19-2022 15:04-0400 Body mass index (BMI) [Ratio] 31.2 kg/m2 MD Audrey Armstrong Work Phone: [facility] 01-19-2022 15:04-0400 Body weight 98.8 kg MD Audrey Armstrong Work Phone: [facility] 01-19-2022 14:24-0400 Body temperature 98.6 [degF] MD Audrey Armstrong Work Phone: [facility] 09-27-2021 09:44-0400 Body temperature 97.88 [degF] Audrey Armstrong Other Phone: [facility] 09-27-2021 09:44-0400 Diastolic blood pressure 74 mm[Hg] Audrey Armstrong Other Phone: [facility] 09-27-2021 09:44-0400 Heart rate 89 /min Audrey Anthonyy Other Phone: [facility] 09-27-2021 09:44-0400 Respiratory rate 18 /min Audrey Cruzy Other Phone: [facility] 09-27-2021 09:44-0400 SaO2% (BldA) [Mass fraction] 94 % Audrey Hoy Other Phone: [facility] 09-27-2021 09:44-0400 Systolic blood pressure 149 mm[Hg] Audrey Armstrong Other Phone: [facility] 03-16-2021 08:34-0400 Body weight 101.86 [...] Shun MACHADO Facility : [facility] Start: 07-14-2024 End: 07-14-2024 Encounter identifier Fidel Narayan Work Phone: [facility] Start: 07-14-2024 ambulatory Fidel Narayan [facility] Start: 04-13-2024 End: 04-13-2024 ambulatory Shun MACHAOD Facility:[facility] Start: 04-13-2024 End: 04-13-2024 Patient encounter procedure Shun MACHADO [facility] [place] Start: 03-04-2024 End: 03-04-2024 Patient encounter procedure MD Audrey Armstrong Work Phone: [facility] [address] Work Phone: Start: 03-04-2024 End: 03-04-2024 ambulatory MD Audrey Armstrong Work Phone: [facility] Work Phone: Start: 12-27-2023 Non-patient / Non-visit MD Brittani Armstrong Work Phone: [facility] Work Phone: Start: 11-19-2023 End: 11-19-2023 Patient encounter procedure MD Audrey Armstrong Work Phone: [facility] [address] Work Phone: Start: 11-19-2023 End: 11-19-2023 ambulatory MD Audrey Armstrong Work Phone: [facility] Work Phone: Start: 09-19-2023 End: 09-19-2023 Office outpatient visit 15 minutes Fidel Narayan Work Phone: [facility] Start: 08-28-2023 End: 08-28-2023 ambulatory STEFANIE KNIGHT [...] MD Audrey Armstrong Work Phone: [facility] [address] Work Phone: Start: 07-18-2023 End: 07-18-2023 ambulatory MD Audrey Armstrong Work Phone: [facility] Work Phone: Start: 07-16-2023 End: 07-16-2023 ambulatory GENE FREY Not Available Start: 07-09-2023 End: 07-09-2023 ambulatory STEFANIE KNIGHT Not Available Start: 07-05-2023 End: 07-05-2023 Office outpatient new 30 minutes Fidel Narayan Work Phone: [facility] Start: 04-08-2023 End: 04-08-2023 Patient encounter procedure Shun MACHADO [facility] Start: 03-12-2023 End: 03-12-2023 ambulatory ANTWAN SORIANO Facility:[facility] Start: 02-19-2023 End: 02-19-2023 ambulatory MD Audrey Armstrong Work Phone: [facility] Work Phone: Start: 02-19-2023 End: 02-19-2023 Patient encounter procedure MD Audrey Armstrong Work Phone: [facility] [address] Work Phone: Start: 10-16-2022 End: 10-16-2022 Patient encounter procedure Shun MACHADO [facility] Start: 10-15-2022 End: 10-15-2022 ambulatory MD Audrey Armstrong Work Phone: [facility] Work Phone: Start: 10-15-2022 End: 10-15-2022 Patient encounter procedure MD Audrey Armstrong Work Phone: [facility] [address] Work Phone: Start: 10-02-2022 End: 10-02-2022 Patient encounter procedure Arely LOGAN [facility] [place]/Biju Schultz Start: 09-11-2022 End: 09-11-[address] AUDREY ARMSTRONG . Facility:[facility] Start: 09-05-2022 ambulatory JENI SAEED Faci lity:[facility] Start: 08-31-2022 End: 09-01-[address] ARELY LOGAN . Facility:[facility] Start: 08-27-2022 Chart Update Audrey Armstrong Work Phone: LM-Jsnhrzxalyop-Xgflizi -Spiritism Work Phone: Start: 08-16-2022 End: 08-17-2022 ambulatory WADE NELSON Facility:[facility] Start: 07-19-2022 End: 07-20-2022 ambulatory WADE OMAR Facility:[facility] Start: 07-06-2022 End: 07-07-[address] AUDREY ARMSTRONG . Facility:[facility] Start: 06-19-2022 Encounter for preprocedural laboratory examination [facility] Start: 06-07-2022 End: 06-08-[address] AUDREY ARMSTRONG . Facility:[facility] Start: 06-04-2022 End: 06-05-[address] AUDREY ARMSTRONG . Facility:[facility] Start: 06-04-2022 End: 06-05-2022 Encounter for preprocedural laboratory examination DR AUDREY ARMSTRONG . Facility:[facility] Start: 05-31-2022 Encounter for preprocedural cardiovascular examination JENI SAEED [facility] Start: 05-25-2022 End: 05-26-2022 ambulatory JENI SAEED Facility:[facility] Start: 05-25-2022 End: 05-26-2022 Encounter for preprocedural cardiovascular examination JENI SAEED Facility:[facility] Start: 05-23-[address] AUDREY ARMSTRONG . Facili ty:H1 Start: 05-23-2022 End: 05-23-2022 ambulatory MD Audrey Armstrong Work Phone: [facility] Work Phone: Start: 05-23-2022 End: 05-23-2022 Patient encounter procedure MD Audrey Armstrong Work Phone: [facility] [address] Start: 05-02-2022 ambulatory Mr. Kenton Lawson Fa cility:[facility] Start: 05-02-2022 Office outpatient vi sit 25 minutes Audrey Armstrong Work Phone: HB-Ofczczgnzkik-Xutbvkq 5FL DO Work Phone: Start: 03-30-2022 Encounter for genera l adult medical examination without abnormal findings DR AUDREY ARMSTRONG . [facility] Start: 03-28-2022 End: 03-29-[address] AUDREY ARMSTRONG . Facility: Start: 03-28-2022 End: 03-29-2022 Encounter for general adult medical examination without abnormal findings DR AUDREY ARMSTRONG . Facility:[facility] Start: 02-15-2022 End: 02-15-2022 Admission to same day surgery center MD Audrey Armstrong Work Phone: [facility] [place] Start: 02-14-2022 End: 02-15-2022 ambulatory JENI SAEED Facility:[facility] Start: 02-13-2022 End: 02-13-2022 Patient encounter procedure MD Audrey Armstrong Work Phone: [facility] Start: 01-30-2022 End: 01-30-2022 Patient encounter procedure Shun MACHADO [facility] Start: 01-29-2022 End: 01-30-[address] AUDREY ARMSTRONG . Facility:[facility] Start: 01-29-2022 ambulatory Audrey Armstrong Fac ility:[facility] Start: 01-29-2022 Office outpatient vi sit 15 minutes Audrey Armstrong Work Phone: QU-Uaatwkdqmeol-Fbaqvrh 5FL DO Work Phone: Start: 01-29-2022 ambulatory Mr. Kenton Lawson Fa cility:[id number] Start: 01-24-2022 End: 01-24-2022 Patient encounter procedure Arely LOGAN [facility] [place]/[facility]aid [place] Start: 01-19-2022 End: 01-19-2022 Admission to same day surgery center MD Audrey Armstrong Work Phone: [facility] [place] Start: 01-17-2022 End: 01-17-2022 Patient encounter procedure MD Audrey Armstrong Work Phone: [facility] Start: 01-11-2022 End: 01-12-[address] SHUN MACHADO Facility:[facility]1 Start: 01-09-2022 End: 01-09-[address] LAURY ZEPEDA Facility:[facility]1 Start: 01-05-2022 End: 01-06-[address] AUDREY ARMSTRONG . Facility:[facility]1 Start: 12-27-2021 End: 12-28-[address] AUDREY ARMSTRONG . Facility:[facility]1 Start: 12-09-2021 End: 12-10-[address] AUDREY ARMSTRONG . Facility:[facility]1 Start: 11-09-2021 Chart Update Audrey Armstrong Work Phone: NC-Chtilcxsxhjl-Gnrufp 210 Work Phone: Start: 11-08-2021 Postop follow up vis it related to original px Audrey Armstrong Work Phone: ZL-Nifwfceeuuds-Hlhiewh 5FL DO Work Phone: Start: 11-08-2021 POV, Provider: Kenton Lawson, Status: Pen, Time: 11:00 AM Audrey Armstrong Work Phone: ZZ-Aorwngoplnth-Lmcvfu 210 Work Phone: Start: 11-08-2021 ambulatory Audrey Armstrong Fac ility:[facility] Start: 11-07-2021 AUDIT Audrey Armstrong Work Phone: AK-Ujgwzukuhwgv-Kqiegr 210 Work Phone: Start: 09-26-2021 End: 09-27-2021 Evaluation and management of inpatient Sal Richardson [facility] [id number] Start: 09-19-2021 AUDIT Audrey Armstrong Work Phone: MV-Joxoanywqktuih-Eie for Perioperative Med Work Phone: Start: 09-19-2021 ambulatory Audrey Rivera ility:[facility] Start: 09-19-2021 Encounter for blood typing Dr. SAL RICHARDSON [facility] Start: 09-19-2021 Encounter for preprocedural laboratory examination Dr. SAL RICHARDSON [facility] Start: 08-23-2021 Office outpatient vi sit 40 minutes Audrey Armstrong Work Phone: OS-Amhadxumaife-Qxzrtsb ng-Spiritism Work Phone: Start: 08-23-2021 ambulatory Audrey Armstrong Fac ility:[facility] Start: 08-03-2021 Office outpatient vi sit 25 minutes Audrey Armstrong Work Phone: VP-Ulretaetnutr-Wytwwp 210 Work Phone: Start: 08-03-2021 ambulatory Referral Self Facility: [id number] Start: 06-21-2021 End: 06-21-2021 ambulatory Audrey Armstrong Facility:[facility] Start: 06-02-2021 AUDIT No PCP None [facility] si[facility]-Ctr for Perioperative Med Work Phone: Start: 06-02-[address] SAL RICHARDSON Facility:[facility] Start: 06-02-[address] SAL RICHARDSON Facility:[facility] Start: 06-02-2021 Encounter for other preprocedural examination Dr. SAL RICHARDSON [facility] Start: 06-02-2021 Encounter for preprocedural cardiovascular examination Dr. SAL RICHARDSON [facility] Start: 05-03-2021 Office outpatient vi sit 40 minutes No PCP None WZ-Urwjqjtcvslb-Ftltgbs ng-Spiritism Work Phone: Start: 03-16-2021 NPV, Provider: Nazario Holloway, Status: Pen, Time: 8:30 AM No PCP None [facility] Work Phone: Start: 03-16-2021 Office outpatient ne w 30 minutes No PCP None [facility] Work Phone: Start: 03-16-2021 Patient encounter procedure No PCP None [facility] Work Phone: Start: 03-13-2021 Office consultation new/estab patient 80 min No PCP None [facility] Work Phone: Start: 03-10-2021 Chart Update No PCP None [facility]-[place] [address] Work Phone: Start: 03-06-2021 Telephone encounter No PCP None [facility] Work Phone: Start: 02-12-2021 Chart Update No PCP None [facility] [address] Work Phone: Start: 02-09-2021 Office outpatient ne w 45 minutes No PCP None DT-Nlymabuyacji-Eazdgp 210 Work Phone: Start: 02-08-2021 AUDIT No PCP None [facility] [address] Work Phone: Procedures Date Procedure Procedure Detail Performing Clinician Start: 09-19-2023 End: 09-19-2023 Arthrocentesis aspir&/inj major jt/bursa w/o us Fidel Narayan MD Start: 09-19-2023 End: 09-19-2023 Bupivicaine Injection 0.5 mg Fidel Narayan MD Start: 09-19-2023 End: 09-19-2023 Radex shoulder complete minimum 2 views Fidel Narayan MD Start: 09-19-2023 End: 09-19-2023 Triamcinolone acet inj NOS Fidel Albrecht Start: 07-05-2023 End: 07-05-2023 Radex shoulder complete minimum 2 views Fidel Narayan MD Start: 06-07-2022 Fusion of Right Tars al Joint with Synthetic Substitute, Open Approach JENI SAEED Start: 06-07-2022 Transfer Right Foot Tendon, Open Approach JENI SAEED Start: 03-28-2022 PSA screening JENI CONNOR Comment on above: Performed By: #### P [facility] #### [facility] [address] [address] [address] Carolyn King Start: 02-15-2022 Cystoscopy MD Audrey Armstrong Work Phone: Start: 02-15-2022 Diagnostic radiograp hy of abdomen MD Audrey Armstrong Work Phone: Start: 01-19-2022 Extracorporeal shock wave lithotripsy MD Audrey Armstrong Work Phone: Start: 01-19-2022 Diagnostic radiograp hy of abdomen MD Audrey Armstrong Work Phone: Start: 01-19-2022 Extracorporeal shock wave lithotripsy of calculus of kidney Shun MACHADO Start: 01-19-2022 Lithotripsy Arely PANDA LL Start: 01-17-2022 Plain chest X-ray MD Pacheco Work Phone: Start: 09-19-[address] ASIA RICHARDSON Comment on above: Performed By: #### T +S #### [facility] [address] [place] [address] Start: 06-02-[address] ASIA RICHARDSON Comment on above: Performed By: #### U A #### [facility] [address] [place] [address] Arthroplasty of knee Arely NILL Colonoscopy Arely NILL Excision of cervical intervertebral disc Arely NILL Excision of melanoma Arely NILL Fusion of lateral jeff mbar interbody Arely NILL Fusion of tarsal joints Ricardo ael NILL Plan of Treatment Date Care Activity Detail Author Start: 03-04-2024 Hemolytic complement CH50 level [facility] Start: 11-19-2023 Hemolytic complement CH50 level [facility] Start: 07-18-2023 Hemolytic complement CH50 level [facility] Start: 02-19-2023 Hemolytic complement CH50 level [facility] Start: 10-15-2022 Hemolytic complement CH50 level [facility] Start: 09-26-2022 FUV, Provider: Kenton Lawson, Status: Pen, Time: 9:30 AM FUV, Provider: Ketnon Lawson, Status: Pen, Time: 9:30 AM PD-Hsvzouksbkja-Jhbrjqp 5FL DO Work Phone: Start: 05-23-2022 Hemolytic complement CH50 level [facility] Start: 05-02-2022 FUV, Provider: Kenton Lawson, Status: Pen, Time: 9:00 AM FUV, Provider: Kenton Lawson, Status: Pen, Time: 9:00 AM EH-Kdxoedjnhayn-Cjccgun 5FL DO Work Phone: Start: 02-15-2022 End: 02-15-2022 [facility] Work Phone: Start: 02-15-2022 Cystoscopy OR Cysto/Retro/Stent/Ston e/Holmium Laser (Right) [facility] Start: 02-15-2022 Diagnostic radiograp hy of abdomen XR KUB [facility] Start: 02-15-2022 End: 02-15-2022 Admission to same day surgery center Departed Surgical Day Care [facility] [place] Start: 02-13-2022 End: 02-13-2022 Patient encounter procedure Departed Clinical [facility] Jjs-Nni-Zdybowgn Testing Start: 01-19-2022 End: 01-19-2022 [facility] Work Phone: Start: 01-15-2022 FUV, Provider: Kenton Lawson, Status: Pen, Time: 10:00 AM FUV, Provider: Kenton Lawson, Status: Pen, Time: 10:00 AM BO-Fdrhmvrvlxsa-Gpwntxu 5FL DO Work Phone: Start: 11-08-2021 Patient encounter procedure [facility] Orthopedics Raheem Start: 09-27-2021 End: 09-28-2022 Sodium Chloride 0.9% Injectable Flush Peripheral Line ; via Peripheral LineVolume = 10 mL IntraVenous Flush Every 8 Hours and as Needed Start: 27-Sep-2021 End: 27-Sep-2022 Ordered: 27-Sep-2021 Timothy Steinberg [facility] Start: 09-27-2021 End: 09-28-2022 oxyCODONE Immediate Release 10 mg Oral Tablet Every 4 Hours ; Tablet (OXYIR, ROXICODONE)DOSE = 10 mg Oral Every 4 Hours, PRN Pain - Severe (7-10) Start: 27-Sep-2021 End: 27-Sep-2022 Ordered: 27-Sep-2021 Timothy Steinberg [facility] Start: 09-26-2021 End: 09-27-2022 [facility] Comment on above: 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 immediately Start: 09-26-2021 [facility], Provider: Sal Richardson, Status: Pen, Time: 7:[address] [facility], Provider: Sal Richardson, Status: Pen, Time: 7:30 AM UC-Qesknyljwtbftn-Ijk for Perioperative Med Work Phone: Start: 08-30-2021 FUV, Provider: Sal Richardson, Status: Pen, Time: 11:15 AM FUV, Provider: Sal Richardson, Status: Pen, Time: 11:15 AM BO-Qizwcdgvsccq-Ukbjpv 210 Work Phone: Start: 08-30-2021 FUV, Provider: Sal Richardson, Status: Pen, Time: 11:00 AM FUV, Provider: Sal Richardson, Status: Pen, Time: 11:00 AM IT-Xpglirogayil-Mszqbg 210 Work Phone: Start: 06-09-2021 [facility], Provider: Sal Richardson, Status: Pen, Time: 7:30 AM [facility], Provider: Sal Richardson, Status: Pen, Time: 7:30 AM GX-Upvjhwilbpznbe-Mtp for Perioperative Med Work Phone: Start: 03-22-2021 [facility], Provider: Nazario Holloway, Status: Pen, Time: 9:40 AM [facility], Provider: Nazario Holloway, Status: Pen, Time: 9:40 AM [facility] Work Phone: Start: 03-13-2021 [facility]UV, Provider: Sal Richardson, Status: Pen, Time: 2:15 PM [facility]UV, Provider: Sal Richardson, Status: Pen, Time: 2:15 PM KK-Jcudsmqbxtmd-Cuvxal 210 Work Phone: Complement C3 [Mass/volume] in Serum or Plasma [facility] Work Phone: Complement C3 [Mass/volume] in Serum or Plasma [facility] Complement C3 [Mass/volume] in Serum or Plasma [facility] Complement C3 [Mass/volume] in Serum or Plasma [facility] Complement C3 [Mass/volume] in Serum or Plasma [facility] Complement C4 [Mass/volume] in Serum or Plasma [facility] Work Phone: Complement C4 [Mass/volume] in Serum or Plasma [facility] Complement C4 [Mass/volume] in Serum or Plasma [facility] Complement C4 [Mass/volume] in Serum or Plasma [facility] Complement C4 [Mass/volume] in Serum or Plasma [facility] Hemolytic complement CH50 level [facility] Work Phone: Patient referral [facility] Work Phone: Immunizations Immunization Date Immunization Notes Care Provider Fa cili 03-27-2022 influenza virus vaccine, unspecified formulation Arely LOGAN [facility] [place] 11-21-2021 SARS-CoV-2 mRNA (tftspiihlyn-xkxn-jtby ose) vaccine Arely LOGAN [facility] [place] 09-22-2021 SARS-CoV-2 (COVID-19 ) mRNA BNT-162b2 vax Arely LOGAN [facility] [place] 06-26-2021 Pfizer-BioNTech COVID-19 Vacc 30 MCG/0.3ML Intramuscular Suspension Audrey Armstrong Work Phone: [facility] 05-01-2021 influenza virus vaccine, unspecified formulation Shun Yekra [facility] 05-01-2021 Influenza, injectabl e, Madin Charissa Canine Kidney, preservative free, quadrivalent Audrey Armstrong Work Phone: DT-Rsmldngdmvqt-Jc sman 210 Work Phone: 10-06-2020 Pfizer-BioNTech COVID-19 Vacc 30 MCG/0.3ML Intramuscular Suspension No PCP None [facility] 09-13-2020 Pfizer-BioNTech COVID-19 Vacc 30 MCG/0.3ML Intramuscular Suspension No PCP None [facility] 06-24-2020 SARS-CoV-2 (COVID-19 ) mRNA BNT-162b2 vax Arely LOGAN [facility] [place] 05-04-2020 influenza virus vaccine, unspecified formulation Shun Yekra [facility] 05-04-2020 Influenza, injectabl e, Madin [place] Canine Kidney, preservative free, quadrivalent No PCP None CO-Mcckyuawnbfp-Jv sman 210 Work Phone: 05-04-2020 pneumococcal conjuga te vaccine, 13 valent No PCP None [facility] 04-06-2020 influenza virus vaccine, unspecified formulation Shun Yekra [facility] 04-06-2020 influenza, seasonal, injectable No PCP None BU-Dzlufjjebzzd-Su sman 210 Work Phone: 10-25-2011 hepatitis A vaccine, adult dosage No PCP None [facility] 10-25-2011 hepatitis B vaccine, pediatric or pediatric/adolescent dosage No PCP None [facility] 03-30-2011 hepatitis A vaccine, adult dosage No PCP None [facility] 03-30-2011 hepatitis B vaccine, pediatric or pediatric/adolescent dosage No PCP None [facility] 02-15-2011 hepatitis B vaccine, pediatric or pediatric/adolescent dosage No PCP None [facility] 01-20-1998 hepatitis B vaccine, adult dosage No PCP None [facility] 02-24-1997 hepatitis B vaccine, adult dosage No PCP None [facility] 11-11-1996 hepatitis B vaccine, adult dosage No PCP None [facility] 11-02-1996 TD(adult) unspecifie d formulation; Translations: [Td(adult) unspecified formulation] No PCP None [facility] NEGATED: Highlighted row has not occurred!04-15-2019 influenza virus vaccine, unspecified formulation Arely LOGAN [facility] [place] Payers Date Payer Category Payer Self-pay [id number] 2023 Unknown [id number] 2022 Medicare [id number] 1961 Unknown [id number] 2.16. 840.1.976344.3.579.2.356 1961 Unknown [id number] 2.16. 840.1.449356.3.579.2.356 1961 Unknown [id number] 2.16. 840.1.872304.3.579.2.356 1961 Unknown [id number] 2.16. 840.1.104809.3.579.2.356 1961 Unknown [id number] 2.16. 840.1.505609.3.579.2.356 1961 Unknown [id number] 2.16. 840.1.959428.3.579.2.356 1961 Unknown [id number] 2.16. 840.1.075695.3.579.2.356 1961 Unknown [id number] 2.16. 840.1.660701.3.579.2.356 1961 Unknown [id number] 2.16. 840.1.573606.3.579.2.356 1961 Unknown [id number] 2.16. 840.1.268291.3.579.2.356 1961 Unknown [id number] 2.16. 840.1.461740.3.579.2.356 1961 Unknown [id number] 2.16. 840.1.869446.3.579.2.356 1961 Unknown [id number] 2.16. 840.1.737729.3.579.2.356 1961 Unknown [id number] 2.16. 840.1.861501.3.579.2.356 1961 Unknown [id number] 2.16.84 0.1.439426.3.579.2.593 1961 Unknown [id number] 2.16.84 0.1.094785.3.579.2.593 1961 Unknown [id number] 2.16.84 0.1.315833.3.579.2.593 1961 Unknown [id number] 2.16.84 0.1.298073.3.579.2.593 1961 Unknown [id number] 2.16.84 0.1.826909.3.579.2.593 1961 Unknown [id number] 2.16.84 0.1.139915.3.579.2.593 1961 Unknown [id number] 2.16.84 0.1.730186.3.579.2.593 1961 Unknown [id number] 2.16.84 0.1.754663.3.579.2.593 1961 Unknown [id number] 2.16.84 0.1.504338.3.579.2.593 1961 Unknown [id number] 2.16.84 0.1.173783.3.579.2.593 1961 Unknown [id number] 2.16.84 0.1.473798.3.579.2.593 1961 Unknown [id number] 2.16.84 0.1.257948.3.579.2.593 1961 Unknown [id number] 2.16.84 0.1.296695.3.579.2.593 1961 Unknown [id number] 2.16.84 0.1.881745.3.579.2.593 1960 Unknown [id number] 2.16.84 0.1.771148.3.579.2.593 1960 Unknown [id number] 2.16.84 0.1.084284.3.579.2.593 1961 Unknown [id number] 2.16.84 0.1.139139.3.579.2.593 1961 Unknown [id number] 2.16.84 0.1.692713.3.579.2.593 1961 Unknown [id number] 2.16.84 0.1.272172.3.579.2.593 1961 Unknown [id number] 2.16.84 0.1.902339.3.579.2.1259 1961 Unknown [id number] 2.16.84 0.1.644757.3.579.2.1259 1961 Unknown [id number] 2.16.84 0.1.797025.3.579.2.1259 1961 Unknown [id number] 2.16.84 0.1.713182.3.579.2.1259 1961 Unknown [id number] 2.16.84 0.1.515559.3.579.2.1259 1961 Unknown [id number] 2.16.84 0.1.498645.3.579.2.1259 1961 Unknown [id number] 2.16.84 0.1.078586.3.579.2.1259 1961 Unknown [id number] 2.16.84 0.1.035740.3.579.2.1259 1961 Unknown [id number] 2.16.8 40.1.640366.3.579.2.727 1961 Unknown [id number] 2.16.8 40.1.362035.3.579.2.727 1961 Unknown [id number] 2.16.84 0.1.353071.3.579.2.1314 1959 Unknown [id number] 1959 Unknown [id number] Unknown Unknown O [id number] Unknown [id number] Unknown [id number] 2.16.8 40.1.334479.3.579.2.531 Unknown [id number] 2.16.8 40.1.500620.3.579.2.531 Unknown [id number] 2.16.8 40.1.858861.3.579.2.531 Social History Date Type Detail Facility [facility] Start: 07-14-2024 Tobacco smoking consumption unknown [facility] Start: 01-24-2022 End: 04-13-2024 Tobacco smoking status Never smoked tobacco (finding) [facility] Work Phone: Tobacco smoking status Never [facility] Sex Assigned At Male [facility] Start: 1960 Sex Assigned At Male [facility] Start: 07-14-2024 Alcohol intake Alcohol Use Details [facility] Start: 10-17-2022 Sexual Orientation Choose not to disclose [facility] Medical Equipment Procedure Code Equipment Code Equipment Origin al Text Equipment Identifier Dates Cystoscopy, with ureteral calculus manipulation and stent placement Polymeric ureteral stent [id number] FDA Start: 02-15-2022 Cystoscopy, with ureteral calculus manipulation and stent placement Polymeric ureteral stent ()[id number] FDA Start: 01-19-2022 Goals Date Patient Goal Desired Activity /State Functional Status Date Assessment Result Facility 04-13-2024 Functional Status N/A [facility] 04-08-2023 Functional Status N/A [facility] 10-16-2022 Functional Status N/A [facility] 10-02-2022 Functional Status N/A [facility] 01-30-2022 Functional Status N/A [facility] 01-24-2022 Functional Status N/A [facility] Functional observable [facility] Mental Status Date Assessment Result Facility 09-26-2021 Cognitive functions 27-Sep-19 2212:26 [facility] Clinical Notes 10-31-2020 to 04-13-2024 Note Date & Type Note Facility 04-13-2024 Hospital Discharg e instructions Patient Education 04/13/2024 10:06:26 Dietary Guidelines [...] include: ?8 oz (237 mL) of milk, rqjlspq-jlukevsqfuxg-cyegg milk, and calcium-fortifiedfruit juice. Calcium-fortified means that [...] ?Spinach (cooked), rhubarb, beets, sweet potatoes, and Slovak chard. ?Peanuts. ?Potato chips, cape verdean fries, and baked potatoes with skin on. ?Nuts and nut products. ?Chocolate. If you regularly take a diuretic medicine, make sure to eat at least 1 or 2 servings of fruits or vegetables that are high in potassium each day. These include: ?Avocado. ?Banana. ?[place], prune, carrot, or tomato juice. ?Baked potato. [...] magnesium, fish oil, or vitamin B6. Take zwsm-axu-zwvhpvg and prescription medicines only as told by [...] Casseroles. Pizza. Lasagna. Frozen meals. Potato chips. Swedish fries. The items listed above may not [...] provider. Document Revised: 09/20/2022 Document Reviewed: 09/20/2022 [employer] Patient Education 2023 SCYNEXIS. Follow Up Care 04/08/2023 11:14:40 With:CHRIS RIVERA, Shun Mirza, URL Address: [facility] [employer] [address] [place] [id number]- When: Unknown [facility] [place] 04-13-2024 Note Patient Education Nephrology Dietary Guidelines [...] ? 8 oz (237 mL) of milk, uxiomic-vgholsznhefx-bnmpu milk, and calcium-fortifiedfruit juice. Calcium-fortified means that [...] Spinach (cooked), rhubarb, beets, sweet potatoes, and Slovak chard. ? Peanuts. ? Potato chips, cape verdean fries, and baked potatoes with skin on. ? Nuts and nut products. ? Chocolate. ? If you regularly take a diuretic medicine, make sure to eat at least 1 or 2 servings of fruits or vegetables that are high in potassium each day. These include: ? Avocado. ? Banana. ? [place], prune, carrot, or tomato juice. ? Baked [...] fish oil, or vitamin B6. ? Take ukas-axg-woprbfm and prescription medicines only as told by your health care provider. These include suppleme (more content not included)... [facility] 09-19-2023 History of Presen t illness Narrative Encounter Date Shoulder Knee [facility] Work Phone: [phone] Hospital Discharge instructions Patient Education 04/08/2023 11:15:31 [...] about 300 mg of calcium at each meal.Foods that contain 200 500 mg of calcium a serving include: ?8 oz (237 mL) of milk, mkcxvqd-ltdbmepeprer-wwfct milk, and calcium- fortifiedfruit juice. Calcium-fortified means that calcium has been [...] the table and allow each person to addhis or her own salt to taste. Use vegetable protein, such as beans, textured vegetable protein (TVP), or tofu, instead of meat inpasta, casseroles, and soups. Meal planning Eat less salt, if told by your dietitian. To do this: ?Avoid eating processed or pre-made food. ?Avoid eating fast food. Eat less animal protein, including cheese, meat, poultry, or fish, if told by your dietitian. To dothis: ?Limit the number of times you have [...] ?Spinach (cooked), rhubarb, beets, sweet potatoes, and Slovak chard. ?Peanuts. ?Potato chips, cape verdean fries, and baked potatoes with skin on. ?Nuts and nut products. ?Chocolate. If you regularly take a diuretic medicine, make sure to eat at least 1 or 2 servings of fruits or vegetables that are high in potassium each day. These include: ?Avocado. ?Banana. ?[place], prune, carrot, or tomato juice. ?Baked potato. [...] taking daily supplements. You may be told thefollowing depending on your health and the cause of your kidney stones: ?Not to take supplements with vitamin C. ?To take a calcium supplement. ?To take a daily probiotic supplement. ?To take other supplements such as magnesium, fish oil, or vitamin B6. Take adnq-uyn-odbdgsj and prescription medicines only as told by [...] Casseroles. Pizza. Lasagna. Frozen meals. Potato chips. Swedish fries. The items listed above may not be a complete list of foods and beverages you should limit. Contact a dietitian for more information. What foods should I avoid? Talk to your dietitian about specific foods you should avoid based on the type of kidney stones youhave and your overall health. Fruits Grapefruit. The item listed above may not be a complete list of foods and beverages you should avoid. Contact adietitian for more information. Summary Kidney stones are [...] provider. Document Revised: 02/19/2022 Document Reviewed: 02/19/2022 [employer] Patient Education 2022 SCYNEXIS. Follow Up Care 10/16/2022 15:04:55 With:CHRIS RIVERA, Shun Mirza, URL Address: [address] [place] [address] [place] [address]- When: Unknown [facility] [place] 09-19-2023 NoteHNO ID: [id number] Author: Antwan Soriano MD Service: ? Author [...] disturbance, mood disorder and recent psychosocial stressors. HEMATOLOGIC/LYMPHATIC/IMMUNOLOGIC:Negative for prolonged bleeding, bruising easily, and swollen [...] No PCP: Audrey Armstrong MD [address] [facility] [id number] FELLOW / RESIDENT: No fellow or resident assisted in this office visit. Antwan Soriano, [facility]04-25-2023 Hospital Discharge instructions Patient Education 10/16/2022 13:00:41 [...] about 300 mg of calcium at each meal.Foods that contain 200 500 mg of calcium a serving include: ?8 oz (237 mL) of milk, chhptjv-qevcitrwpkdf-rhhem milk, and calcium- fortifiedfruit juice. Calcium-fortified means that calcium has been [...] the table and allow each person to addhis or her own salt to taste. Use vegetable protein, such as beans, textured vegetable protein (TVP), or tofu, instead of meat inpasta, casseroles, and soups. Meal planning Eat less salt, if told by your dietitian. To do this: ?Avoid eating processed or pre-made food. ?Avoid eating fast food. Eat less animal protein, including cheese, meat, poultry, or fish, if told by your dietitian. To dothis: ?Limit the number of times you have [...] ?Spinach (cooked), rhubarb, beets, sweet potatoes, and Slovak chard. ?Peanuts. ?Potato chips, cape verdean fries, and baked potatoes with skin on. ?Nuts and nut products. ?Chocolate. If you regularly take a diuretic medicine, make sure to eat at least 1 or 2 servings of fruits or vegetables that are high in potassium each day. These include: ?Avocado. ?Banana. ?[place], prune, carrot, or tomato juice. ?Baked potato. [...] taking daily supplements. You may be told thefollowing depending on your health and the cause of your kidney stones: ?Not to take supplements with vitamin C. ?To take a calcium supplement. ?To take a daily probiotic supplement. ?To take other supplements such as magnesium, fish oil, or vitamin B6. Take qvah-evz-ohubjtz and prescription medicines only as told by [...] Casseroles. Pizza. Lasagna. Frozen meals. Potato chips. Swedish fries. The items listed above may not be a complete list of foods and beverages you should limit. Contact a dietitian for more information. What foods should I avoid? Talk to your dietitian about specific foods you should avoid based on the type of kidney stones youhave and your overall health. Fruits Grapefruit. The item listed above may not be a complete list of foods and beverages you should avoid. Contact adietitian for more information. Summary Kidney stones are [...] provider. Document Revised: 02/19/2022 Document Reviewed: 02/19/2022 [employer] Patient Education 2022 SCYNEXIS. Follow Up Care 02/19/2022 10:35:10 With:CHRIS RIVERA, Shun Mirza, URL Address: [address] [place], [place] [id number]- When: Unknown [facility] [id number] NotePROCEDURE: XR FOOT RT MIN 3 VIEWS HISTORY: Pain in right foot COMPARISON: XR foot right 07/19/2022 FINDINGS: BONES:Prior talocalcaneal fusion and medial midfoot fusion; no appreciable hardware fracture or loosening. SOFT TISSUES:Moderate soft tissue swelling surrounding ankle and foot. EFFUSION:None visible. OTHER: Negative. IMPRESSION: 1. Stable surgical changes without evidence of hardware failure or change in alignment. Electronically authenticated by: LAURY ZEPEDA Date: 2022-08-16 18:55[facility]01-26-2023 NotePROCEDURE: XR FOOT RT MIN 3 VIEWS HISTORY: Pain in right [...] Electronically authenticated by: LAURY ZEPEDA Date: 2022-07-19 12:30[id number] NotePROCEDURE: XR FOOT RT MIN 3 VIEWS HISTORY: Pain in right [...] Electronically authenticated by: LAURY ZEPEDA Date: 2022-07-06 15:41[facility]12-15-2022 NotePROCEDURE: XR ANKLE RT MIN 3 VIEWS, XR [...] Electronically authenticated by: BANDAR SAENZ Date: 2022-06-07 14:32[facility]12-15-2022 NotePROCEDURE: XR ANKLE RT MIN 3 VIEWS, XR [...] Electronically authenticated by: BANDAR SAENZ Date: 2022-06-07 14:32[facility]08-09-2022 Hospital Discharge instructions Patient Education 01/30/2022 09:28:00 [...] about 300 mg of calcium at each meal.Foods that contain 200 500 mg of calcium [...] Talk to your dietitian about how much calciumis recommended for you. Shopping Buy plenty of [...] the table and allow each person to addhis or her own salt to taste. Use [...] fish, if told by your dietitian. To dothis: ?Limit the number of times you have [...] include: ?Spinach. ?Rhubarb. ?Beets. ?Potato chips and cape verdean fries. ?Nuts. If you regularly take a diuretic medicine, make sure to eat at least 1 2 fruits or vegetables high in potassium each day. These include: ?Avocado. ?Banana. ?[place], prune, carrot, or tomato juice. ?Baked potato. [...] fish. Salted or cured meats. Deli meats. Hotdogs. Sausages. Dairy Cheese. Beverages Regular soft drinks. Regular vegetable juice. Seasonings and other foods Seasoning blends with salt. Salad dressings. Canned soups. Soy sauce. Ketchup. Barbecue sauce. Canned pasta sauce. Casseroles. Pizza. Lasagna. Frozen meals. Potato chips. Swedish fries. Summary You can reduce your risk of kidney stones by making changes to your diet. The most important thing you can do is drink enough fluid. You should drink enough fluid to keep your urine clear or pale yellow. Ask your health care provider or dietitian how much protein from animal sources you should eat eachday, and also how much salt and calcium you should have each day. This information is not intended to replace advice given to you by your health care provider. Make sure you discuss any questions you have with your health care provider. Document Released: 10/05/2011 Document Revised: 09/30/2019 Document Reviewed: 05/21/2017 [employer] Patient Education 2020 SCYNEXIS. Follow Up Care 01/24/2022 12:02:31 With:CHRIS RIVERA, Shun Mirza, URL Address: [address] [place], [place] [phone]- When: Unknown [facility] [phone] NoteSend Summary: Discharge Summary Providers: Provider RoleProvider Name Sal Perez Nicholas PrimaryHoy, Douglas M Note Recipients: Audrey Armstrong MD - [id number] [] Discharge: Summary: Admission Date: .26-Sep-2021 06:01:00 [...] floor. Patient was initially started on dilaudid REAL ESTATE CLOSING COORDINATOR x24 hours and then transitioned to an [...] HAVE ANTONIO REMOVED IN [address] [facility] [id number] [place] [address] ON 10/18/2021 AT 0930 WITH KENOTN SANTIAGO. REHAB FACILITIES OR HOME CARE MAY REMOVE ANTONIO OR SUTURES. Wound Site: BACK (Lumbar Spine) Wound Type: surgical incision Change Dressing: daily Cleanse With: soap and water Cover With: abdominal dressing Tape With: paper tape Instructions: no lotions, creams, or tub soaks Other Instructions: PLEASE HAVE ANTONIO REMOVED IN [address] [facility] [id number] [place] [address]. [facility] [address] [facility] ON 10/18/2021 AT 0930 WITH KENTON SANTIAGO. [...] to Schedule in: 6 weeks, PLEASE CALL [phone] TO SCHEDULE YOUR APPOINTMENT FOR 5-6 WEEKS FOLLOWING YOUR SURGERY. Location: [facility] [id number] [place] [address] [address] [facility] OR [address] [place] [address]/ [facility] [address], Phone Number: Office: (September,/[place]) - [phone] Discharge Medications: Home Medication NIFEdipine 30 mg [...] 1-2 tab(s) orally every (more content not included)...[facility]04-06-2022 NoteRehab: Info: Mode of Treatmentoccupational therapy; co-evaluation with PT for pt safety and to optimize pt's therapeutic potential Time IN10:00 Time OUT10:27 Total Treatment [id number] Patient in ... at end of sessionchair; alarm on Communicated with ... at end of sessionbedside nurse Patient Effortexcellent Symptoms Noted During/After Treatmentnone Patient Profile Reviewedyes Onset of Illness/Injury or Date of [id number] Reason for ReferralXLIF L3/4, 4/5;2. Navigated percutaneous [...] WFL Mobility/Tone: Bed Mobility Assessment/Interventionssupine to sit Lqkwzt-ln-Azz [place] (Bed Mobility)standby assist; verbal cues Assistive Device (Bed Mobility)bed rails Comment, Bed MobilityVia log rolling technique Transfer Assessment/Interventionssit to stand transfer; stand to sit transfer Sit-Stand [place] (Transfers)standby assist; verbal cues Sit-Stand Assistive Device (Transfers)no AD Stand-Sit [place] (Transfers)standby assist; verbal cues Stand-Sit Assistive Device (Transfers)no AD Safety Issues Impacting Function (Mobility)insight into deficits/self awareness Impairments Impacting Function (Mobility)balance; pain ActivityPt completed functional household distance with SBA for safety (pt declined use of device) ADL: BADL Assessment/Interventionlower body dressing; grooming; toileting [place] Level (Lower Body Dressing)pants/bottoms; moderate assist (50% patient effort) Position (Lower Body Dressing)edge-of-bed sitting [place] Level (Grooming)supervision Position (Grooming)standing Comment (Grooming)Standing oral care at sink [place] Level (Toileting)supervision Position (Toileting)standing Motor: Sitting, Static (Balance)good balance Sitting, Dynamic (Balance)good balance Psw-zm-Ovwoy (Balance)fair balance Standing, Static (Balance)fair balance Standing, [...] Total Score17 Short Term Goals: Transfer: Established [id number] Transfer: Transfer Type Sqpunau-nr-azwex/syppr-vo-wik; (more content not included)...[facility]04-05-2022 NotePost Operative Note: PreOp Diagnosis: Lumbar stenosis, spondylolisthesis L3-5 Post-Procedure Diagnosis: Lumbar stenosis, spondylolisthesis L3-5 Procedure: ALIF via extreme lateral approach L3/4, L4/5 with cage x 2 PSF with instrumentation L3-5 Surgeon: Dr. Richardson Resident/Fellow/Other Sales And Marketing Executive: Renny Steinberg Estimated Blood Loss (mL): 150 [...] Completion Last Updated: 04-Oct-2021 15:17 by Sal Richardson)[facility] 09-26-2021 History of Present illness Narrative* Jay is a pleasant 62-year-old ozohu-gaft-ugybrzwd male who presents today with his for follow-up visit regarding cervical and lumbar surgeries. * Patient is s/p L3-4, L4-5 XLIF with L3-5 posterior spinal fusion via L3-5 percutaneous pedicle screw placement on 09/26/2021. He is also s/p C5-6, C6-7 ACDF on 06/21/2021. Both surgeries were performed by Dr. Richardson. * In regards to his low back, he is still experiencing some mild numbness/tingling in his left lower extremity but states that this is markedly improved from his preoperative state. His right lower extremity is now symptom-free. He is experiencing some mild incisional back pain. * He is also experiencing mild neck pain in a trapezial distribution. He endorses numbness/tingling in his third and fourth digits bilaterally but states that this is markedly improved from before his cervical surgery. * He does endorse some difficulty sleeping secondary to his pain and the numbness/tingling in his third and fourth digits. He denies bowel/bladder incontinence or saddle anesthesia. Denies dropping items from his hands or difficulty with fine motor skills. Denies issues with balance/gait/coordinationor dragging/tripping over his feet. He does state that he will occasionally feel weak in his right leg but that this is intermittent, denies any falls. He is walking distances without issue. * He continues to do his physical therapy stretches and exercises at home twice daily. He is no longer taking tizanidine and is using Tylenol as needed. * ROS: All other systems have been reviewed and are negative except as previously noted in history ofpresent illness. * On exam, his cervical and lumbar incisions [...] Positive right-sided carpal tunnel Tinel's and Phalen's. * XR: Images of cervical and lumbar spine reviewed and discussed with patient today and reveal instrumentation and graft in appropriate position. * Moving forward, I reassured the patient that [...] of his neck and low back pains. * We discussed that it is not uncommon that his left lower extremity continues to be more bothersome as we performed a left-sided approach for his XLIF. I also reassured the patient that numbness is typically the last symptom to resolve and that we have up until 2 years postoperatively for this to totally resolve. * He does have signs of peripheral nerve compression, right carpal tunnel and left cubital tunnel. I did offer the patient a work-up for this, but he declined at this time and states that he does not feel it is bothersome enough to warrant work-up and treatment. * The patient will follow up with our office in September next year. I did encourage him to call our office in the meantime with any new or worsening symptoms. * The patient was agreeable with the above plan and was appreciative of the care provided today. * This note was dictated using speech recognition software and was not corrected for spelling or grammatical errors. OP-Cqvdlsxdzrfl-Iksenhr 5FL DO Work Phone: [phone] NoteHistory of Present Illness: History Present Illness: Reason for surgery: lumbar [...] the note. I personally evaluated the patient [id number] Electronic Signatures: Sal Richardson) (Signed 29-Sep-2021 11:39) Authored: Note Completion Co-Signer: History of Present Illness, Allergies, Home Medication Review, Impression/Procedure, ERAS, Physical Exam, Consent, Note Completion Timothy Steinberg (Resident)) (Signed 26-Sep-2021 05:59) Authored: History of Present Illness, Allergies, Home Medication Review, Impression/Procedure, ERAS, Physical Exam, Consent, Note Completion Last Updated: 29-Sep-2021 11:39 by Sal Richardson)[facility] 08-25-2021 Reason for referral (narrative)* Reason for Referral: XLIF L3/4, 4/5;2. Navigated percutaneous PSIF L3-5 [facility]12-29-2021 NotePROCEDURE DETAILS Preoperative Diagnosis: cervical stenosis, HNP with myelopathy C5-7 Postoperative Diagnosis: cervical stenosis, HNP with myelopathy C5-7 Surgeon: Dr. Richardson Resident/Fellow/Other Sales And Marketing Executive: Skip/ Katalina Procedure: anterior cervical discectomy/ decompression, [...] Completion Last Updated: 27-Jun-2021 14:14 by Sal Richardson)[facility] 06-21-2021 NoteHistory & Physical Reviewed: I have reviewed the History and Physical [...] the note. I personally evaluated the patient [id number] Electronic Signatures: Sal Richardson) (Signed 27-Jun-2021 13:45) Authored: Note Completion Co-Signer: History & Physical Reviewed, ERAS, Consent, Note Completion Cheikh August (Resident)) (Signed 21-Jun-2021 06:23) Authored: History & Physical Reviewed, ERAS, Consent, Note Completion Last Updated: 27-Jun-2021 13:45 by Sal Richardson)[facility] 12-22-2020 History of Present illness Narrative* Jay is a 60-year-old male that presents today with his to be evaluated for his lumbar pain, left hip pain and left lower extremity radiculopathy. * He informed me that the symptoms have been [...] then came to working up his lumbar spine. * The patient today is dealing with low back [...] that left leg. The patient's right lower extremityis primarily asymptomatic, occasionally he will get some radiculopathy but nowhere near as constantor severe as the left. He has full control of his bowel and bladder and he is not dragging over hisfeet and has not had any recent falls or injuries. * From a treatment standpoint, the patient did physical therapy specifically for his lumbar spine anddid not have any improvement. He did take 2 rounds of prednisone and is also on Celebrex again withvery mild improvement. * Family, social, and medical histories are obtained and reviewed. * -Patient has hypertension managed with medication. He also has cancer history, melanoma which was found on his back through a skin biopsy. He is in remission from this. * -He has history of Raynaud's and lupus. 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 * I reviewed the complete 30-point review of systems that was documented on the scanned patient intake form. All other systems are non-contributory except as defined in history of present illness. * Const: Well-appearing, well-nourished [male] in no distress. * Eyes: Normal appearing sclera and conjunctiva, no jaundice, pupils normal in appearance. * Resp: breathing comfortably, normal respiratory rate. * CV: No upper or lower extremity edema. * Musculoskeletal: [Normal gait]. [Able to heel/toe walk without difficulty.] Lumbar ROM is [supple].Strength exam of the lower extremities reveals 5/5 strength in all major muscle groups]. [Negative]straight leg raise [bilaterally]. * Neuro: Sensation is intact and equal bilaterally. Deep tendon reflexes are [normal and symmetric]. [No clonus]. * Skin: Intact without any lesions, normal turgor. * Psych: Alert and oriented x3, normal mood and affect. * X-rays of his lumbar spine were obtained today. Results images reviewed with patient. These do reveal degenerative changes throughout his lumbar spine as well as varying degrees of spondylolisthesis is. He also shows a slight leg length discrepancy, his left leg is slightly higher and this is revealed on the AP view of his pelvis. * Moving forward, since the patient is not improving with conservative treatment neck step is to order an MRI of his lumbar spine. Once we get these results he will follow-up with Dr. Richardson. * This note was dictated using speech recognition software and was not corrected for spelling or grammatical errors * . [facility] Work Phone: 1(734) 416-918705-10-2021 History of Present illness [id number] yr old male with back pain. 10/31[facility] Work Phone: 1(453) 251-583205-10-2021 History of Present illness Narrative* 60 yr old male with back pain. 10/31 * Mr. Carr is a 60-year-old gentleman complaining of [...] is relieved upon sitting and sometimes hunching forward.There is no history of bowel or bladder [...] not received any interventions for his back pain. * Past medical history significant for multiple foot surgeries and total knee replacement. [facility] Work Phone: consult note* Clinical Note Date No Information [facility] Work Phone: Discharge summary* Clinical Note Date No Information [facility] Work Phone: Evaluation + Plan note Future Appointments Appointment Date:01/30/2022 09:15:00 AM Scheduled Provider:Shun MACHADO MD Location:[facility] Appointment Type:URO Office Visit Appointment Date:07/31/2022 02:00:00 PM Scheduled Provider:Arely LOGAN MD Location:[facility] Appointment Type:[place] [id number] [facility] [place] evaluation + Plan note Future Appointments Appointment Date:07/31/2022 02:00:00 PM Scheduled Provider:Arely LOGAN MD Location:[facility] Appointment Type:[place] [address] [facility] evaluation + Plan note Future Appointments Appointment Date:10/16/2022 02:15:00 PM Scheduled Provider:Shun MACHADO MD Location:[facility] Appointment Type:URO Office Visit Future Scheduled Tests Radiology* XR Abdomen 1 View 02/19/22 [facility] evaludufrk + Plan note Future Appointments Appointment Date:02/22/2023 10:45:00 AM Scheduled Provider:Shun MACHADO MD Location:[facility] Appointment Type:URO Office Visit Future Scheduled Tests Radiology* XR Abdomen 1 View 02/19/22 [facility] evaluation + Plan note Future Appointments Appointment Date:04/13/2024 09:15:00 AM Scheduled Provider:Shun MACHADO MD Location:[facility] Appointment Type:URO Office Visit [facility] evaluation + Plan note Future Appointments Appointment Date:04/12/2025 08:15:00 AM Scheduled Provider:Shun MACHADO MD Location:[facility] Appointment Type:URO Office Visit [facility] evaluation note* Neurological: alert and oriented [id number]: Spine Exam:Dressings CDINo bruising, swelling, or erythemaL1: SILT L2: SILT Hip flexors 5/5 Left; 5/5 RightL3: SILT Knee extension 5/5 Left; 5/5 RightL4: SILT Tib Ant. (Dorsiflexion) 5/5 Left; 5/5 RightL5: SILT EHL 5/5 Left; 5/5 RightS1: SILT Planter flexion 5/5 Left; 5/5 RightClonus: AbsentCardiovascular: RRRRespiratory/Thorax: Breathing comfort ably on the RAHead/Neck: AtraumaticPsychological: Appropriate moodENMT: MMMEyes: PERRL, EOMI, clearscleraSkin: No skin breaksConstitutional: Patient well appearing, no acute distress resting in bed [facility] noteNo assessment information available [facility] Work Phone: Evaluation note* Type Assessment Date No Information [facility] Work Phone: History and physical note* Clinical Note Date No Information [facility] Work Phone: History of Present illness Narrative* Jay is a very pleasant 61-year-old male who presents today with his and daughter for lumbar MITCHELL. * He is s/p L3-4 and L4-5 XLIF with interbody cage placement x2, L3-5 posterior 5 spinal fusion via L3-L5 percutaneous pedicle screw placement. * Today, the patient tells me that he [...] He reports normal bowel and bladder function. * On exam, his left flank and posterior incisions are well-healed without drainage or signs of infection. 5/5 strength throughout BLE. Normal sensation. Neurologically intact. Ambulates in an upright position without assistive device. * XR: Images of lumbar spine completed today personally reviewed and discussed with patient today andreveal instrumentation in appropriate position with good healing. No acute fracture or instability. * He is exceptionally pleased with the results of his lumbar surgery. I advised patient that such rapid resolution of symptoms is very reassuring, and his numbness in his bilateral buttock should continue to improve. He was given referral for physical therapy for general lumbar and lower extremity str engthening as well as to relearn different stretches taught to help reduce lumbar tightness. I advised the patient to continue use of Tylenol and tizanidine as needed for his incisional pain. * Restrictions and limitations were reviewed. * He will follow-up with me in 2 months for repeat x-rays and reevaluation. * I encouraged the patient to call our office with any concerns, new or worsening symptoms, or if he should need medication refills. * The patient, his , and his daughter were agreeable with the above plan were appreciative the care provided today. * This note was dictated using speech recognition software and was not corrected for spelling or grammatical errors. [facility] DO Work Phone: Hospital course Narrative No data available for this section [facility] Discharge instructions* Activity:activity as tolerated and PROGRESSIVE WALKING AT LEAST 2X/DAY. May not shower NO SHOWERING UNTIL ANTONIO REMOVED IN 3WKS. May not return to school/work until follow-up visit with Dr. Richardson Instructions:. May not drive while taking narcotics. No pushing, pulling, or lifting objects greater than 10 pounds. Weight-bearing Instructions: full weight bearing. Other activity instructions: NO EXCESSIVE BENDING/TWISTING, NO HEAVY HOUSE/YARD WORK. * Wound Care 1:Wound Site: Lateral/ FlankWound Type: surgical incisionChange Dressing: daily, UNTIL NO LONGER DRAINING, THEN YOU CAN LEAVE THE DRSG. OFFCover With: abdominal dressingTape With: paper tapeInstructions: no lotions, creams, or tub soaksOther Instructions: PLEASE HAVE ANTONIO REMOVED IN 3WKS. AT [facility] [id number] [facility] 5TH FLOOR ON 10/18/2021 AT 0930 WITH [facility] SANTIAGO.REHAB FACILITIES OR HOME CARE MAY REMOVE ANTONIO OR SUTURES. * Wound Care 2:Wound Site: BACK (Lumbar Spine)Wound Type: surgical incisionChange Dressing: dailyCleanse With: soap and waterCover With: abdominal dressingTape With: paper tapeInstructions: no lotions,creams, or tub soaksOther Instructions: PLEASE HAVE ANTONIO REMOVED IN [address] [facility] [address] [facility] 5TH FLOOR ON 10/18/2021 AT 0930 WITH [facility] SANTIAGO.REHAB FACILITIES OR HOME CARE MAY REMOVE ANTONIO OR SUTURES. * Additional Orders:Additional Instructions: MAY USE HEAT OR ICE TO YOUR BACK AND OR INCISIONS NEEDED FOR COMFORT NO NSAIDS (ADVIL, IBUPROFEN, ALEVE... ETC.) FOR 10-12 WEEKS, THEY HAVE A BAD EFFECT ON HEALING OF FUSION. * Call Provider If:Breathing faster than normal. Temperature is greater than 102 degrees. Chills. Urinating less than 4 times per day. Acting very sleepy and difficult to awaken. Vomiting (throwing up)and not able to eat or drink for 12 hours. 3 or more loose, watery bowel movements in 24 hours (diarrhea). Any new concerning symptoms. ANY CONCERNS OVER APPEARANCE OF INCISION PLEASE CALL IN ADVANCEWHEN RUNNING LOW ON PAIN MEDS. A PRESCRIPTION EITHER WILL NEED TO BE ELECTRONICALLY SENT OR PICKED UP IN ONE OF THE OFFICES. * Follow Up Appointment 1:Physician/Dept/Service: Dr. Sal Richardson/ Orthopaedic Surgery/ SpineReason for Referral: Postoperative Follow-Up AppointmentCall to Schedule in: 6 weeks, PLEASE CALL [phone] TO SCHEDULE YOUR APPOINTMENT FOR 5-6 WEEKS FOLLOWING YOUR SURGERY.Location: [facility] [address] 5TH FLOOR OR [address] [facility] [address], [phone] Number: Office: (September,./[place]) - [phone]: Please Call Emmie Gallagher RN at [phone] For Any Post-Op Questions [facility] instructions No data available for this section General Surgery [place] Instructions* Date Instruction Additional Infor mation No Information [facility] Work Phone: Progress note No data available for this section General Surgery [place] Progress note* Clinical Note Date No Information [facility] Work Phone: Reason for referral (narrative)* Reason For Referral No Information [facility] Work Phone: Summary Purpose Family History Relationship Condition Age at Onset Recorded Date/T mariana Not Specified Hypertension Unknown father Malignant neoplasm Unknown Relationship Condition Age at Onset Recorded Date/T mariana mother Hypertension Unknown father Malignant neoplasm Unknown Family Member Type Diagnosis Age At Onset No Information Advance Directives Advance Directive Response Recorded Date/ Time Advance Directives No December 05 7:40am Advance Directive Response Recorded Date/ Time Advance Directives No December 05 6:40am Directive Yes / No Effective Date File Name No Information Chief Complaint NPV* 60-year-old man presents today [...] weeks. He lives far away, in the [facility]. If he gets better with the injections, perhaps we can watch [id number] and this is obviously what we are [...] weeks. He lives far away, in the [facility]. If he gets better with the injections, perhaps we can watch [id number] and this is obviously what we are [...] spine from 04/12/2021 is available from the [facility] on a CD. This shows [...] and content) DATE CREATED AUTHOR [facility]14[facility]2021 [facility] DATE CREATED AUTHOR AUTHOR'S ORGANIZ ATION 03/11/2021 [facility] DATE CREATED AUTHOR AUTHOR'S ORGANIZ ATION 08/06/2021 [facility] DATE CREATED AUTHOR AUTHOR'S ORGANIZ ATION 05/03/2022 [facility] DATE CREATED AUTHOR AUTHOR'S ORGANIZ ATION 05/05/2022 [facility] DATE CREATED AUTHOR AUTHOR'S ORGANIZ ATION 11/30/2022 [facility] DATE CREATED AUTHOR AUTHOR'S ORGANIZ ATION 03/14/2023 [facility] DATE CREATED AUTHOR AUTHOR'S ORGANIZ ATION 08/28/2023 [facility] DATE CREATED AUTHOR AUTHOR'S ORGANIZ ATION 03/17/2024 [facility] DATE CREATED AUTHOR AUTHOR'S ORGANIZ ATION 04/15/2024 [facility] DATE CREATED AUTHOR AUTHOR'S ORGANIZ ATION 07/16/2024 [facility] <item> Privacy Markings (unrecogniz ed section and content) Section Author: Arthur Patten PROHIBITION ON REDISCLOSURE OF CONFIDENTIAL INFORMATION This notice accompanies a disclosure of information concerning a client made to you with the consent of such client. Care Team (unrecognized sect ion and content) Team Status: Active Member Role Status Dates [...] November 19, 2023 End: November 19, 2023 Name Effective Dates (start - stop) Status Members No Information Goals (unrecognized section and content) Goals may [...] BE BASED ON THE PRIMARY CLINICAL RECORDS. [employer] provides no warranty or guarantee of the accuracy or completeness of information in this document.
== END 2024-08-19 08:29 | disposition home or self-care (01) ==
LOC: RAD 08:28
PROVIDERS: PCP Family Medicine; Visit Provider Podiatrist Foot & Ankle Surgery
DX: M25.571 Pain in right ankle and joints of right foot (principal); M79.672 Pain in left foot
CPT/HCPCS: 73610; 73630

== ENCOUNTER 2024-12-19 10:22 | Outpatient (OUT) | payer MEDICARE, SELFPAY ==
--- NOTE | 2024-12-19 | XR_ITS ---
The [address] [address] Patient Name: RG SIMEON MRN: [id number] date: 1960 Sex: M Assigned Patient Location: [facility] Current Patient Location: [facility] Accession/Order Number: [id number] Exam Date: 12/19/2024 17:23 Report Date: 12/19/2024 17:29 At the request of: JENI SAEED DPKassandra Procedure: XR foot RT min 3V Right FOOT - 3 views CLINICAL HISTORY: RT FOOT PAIN COMPARISON: 08/19/2024 FINDINGS: Stable postsurgical changes involving the first first metatarsal and the hindfoot. There is a subtle lucency involving one of the surgical screws noted of uncertain clinical significance. There is suspicion for minimal lucency involving the first metatarsal surgical hardware. Otherwise no fracture-dislocation. Mild subtalar and degenerative change. Soft tissues unremarkable. XR/XR foot RT min 3V IMPRESSION: EXTENSIVE POSTSURGICAL CHANGES. SUBTLE LUCENCY INVOLVING ONE OF THE OSTEOTOMY SCREWS OF UNCERTAIN CLINICAL SIGNIFICANCE. OTHERWISE MINIMAL DEGENERATIVE change. Impression dictated by: Wallace Brewster M.D. 12/19/2024 5:29 PM Dictation Location: [place] [address] Electronically authenticated by: [id number] Y Date: 12/19/2024 17:29
--- OUTSIDE RECORDS SUMMARY | 2024-12-19 10:28 | XMS_ITS | CCD ---
Author Organization [facility] Care Team Providers Care It Network Engineer Name Role Phone None, No PCP Unavailable Unavailable Unavailable Unavailable Dania Armstrong M Unavailable Dania Armstrong M Unavailable Sal Richardson Unavailable Kenton Lawson Randy Unavailable Unavailabl e Leandra Dania Primary Care Physician MD Dania Armstrong Primary Care Provider [phone] MD Shun Machado Attending Provider DEBRA, Dr. SAL COLEMAN Attending Unavail able Shevchik, Mr. Suarez Attending Unavailabl e Hoy, Dania Arely Primary Care Unavailable Hoy, Dania Arely Primary Care Unavailable Shevchik, Mr. Suarez Attending Unavailabl e Hoy, Dania Arely Primary Care Unavailable [place]vch[place], Mr. Suarez Attending Unavailabl e Self, Referral Referring Unavailable Hoy, Dania Arely Primary Care Unavailable Dr. SAL RICHARDSON Attending Unavail able [place], Mr. Suarez Attending Unavailabl e Hoy, Dania Arely Primary Care Unavailable Shevchik, Mr. Suarez Referring Unavailabl e Shevchik, Mr. Suarez Referring Unavailabl e Hoy, Dania Arely Primary Care Unavailable [place], Mr. Suarez Attending Unavailabl e Shevchik, Mr. Suarez Referring Unavailabl e Shevchik, Mr. Suarez Attending Unavailabl e Hoy, Dania Arely Primary Care Unavailable Hoy, Dania Arely Primary Care Unavailable UNKNOWN, UNKNOWN Referring Unavailable Dr. SAL RICHARDSON Attending Unavail able Hoy, Dania Arely Primary Care Unavailable Dr. SAL RICHARDSON Attending Unavail able DEBRA, Dr. SAL COELMAN Referring Unavail able DEBRA, Dr. SAL COLEMAN Admitting Unavail able DEBRA, Dr. SAL COLEMAN Attending Unavail able Dania Armstrong Primary Care Unavailable Dania Armstrong Primary Care Unavailable DEBRA, Dr. SAL COLEMAN Attending Unavail able DEBRA, Dr. SAL COLEMAN Referring Unavail able DEBRA, Dr. SAL COLEMAN Admitting Unavail able DEBRA, Dr. SAL COLEMAN Attending Unavail able Dania Armstrong Primary Care Unavailable DEBRA, Dr. SAL COLEMAN Attending Unavail able MD Dania Armstrong Primary Care Provider [phone] MD Dmitriy De Leon Attending Provider MD Dania Armstrong Primary Care Provider MD Dmitriy De Leon Attending Provider [phone] JENI SAEED Admitting Unavailable ZIEBMALIKA, DR [...] DR VILLAFANA Admitting Unavailable HAY ., DR VILLAFAAN Attending Unavailable HOY ., DR VENTURA Primary [...] Costello Consulting Unavailable OMAR, WADE Admitting DR DANIA Person Primary Care Unavailable WADE NELSON Consulting Unavailable MD Dania Armstrong Primary Care Provider [phone] MD Hudson De Leon Attending Provider ANTWAN SORIANO Attending Unavailable DANIA ARMSTRONG Primary Care Unavailable MD Dania Armstrong Primary Care Provider [phone] Obermeymalika, JANETTE-C Sabrina Langley Attending Provider STEFANIE KNIGHT Attending Unavailable HURST, FIDEL Referring Unavailable KELBLEY, GENE Attending Unavailable HURST, FIDEL Referring Unavailable KELBLEY, GENE Attending Unavailable HURST, FIDEL Referring Unavailable KELBLEY, GENE Attending Unavailable HURST, FIDEL Referring Unavailable STEFANIE KNIGHT T Attending Unavailable HURST, FIDEL Referring Unavailable KELBLEY, GENE Attending Unavailable HURST, FIDEL Referring Unavailable PB MAY Attending Unavailable HURST, FIDEL Referring Unavailable STEFANIE KNIGHT T Attending Unavailable HURST, FIDEL Referring Unavailable MD Dania Armstrong Primary Care Provider [phone] ObKELVIN almeidaC Sabrina Langley Attending Provider MD Dania Armstrong Primary Care Provider [phone] ObermeyTAD cabrera Attending Provider Shun MACHADO Attending Unavailable Shun MACHADO Attending Unavailable Fidel Narayan M Attending Unavailable Sylvain, Fidel M Referring Unavailable Dania Armstrong Primary Care Unavailable Fidel Narayan MD Unavailable Unavailable Dania Armstrong MD Primary Care Provider [phone] Obermeyer ROTARY DRIER-CSabrina Attending Provider ObSabrina almeida Admitting Unavailable Sabrina Manriquez Attending Unavailable Dania Armstrong Primary Care Unavailable Sabrina Manriquez Attending Unavailable Dania Armstrong Primary Care Unavailable ObSabrina almeida Admitting Unavailable ObSabrina almeida Admitting Unavailable Sabrina Manriquez Attending Unavailable Dania Armstrong Primary Care Unavailable Allergies Allergy Classification Reported Allergen(s) Allergy Type Date of Onset Reaction(s) Facility (18 sources) Penicillins; Translations: [Penicillins] Allergy to drug (finding) 7 [facility] Work Phone: (7 sources) Penicillin; Translations: [penicillin] Drug Allergy Eruption of skin (disorder) [facility] [place] (2 sources) oxyCODONE Drug Allergy 1 [facility] (2 sources) Penicillins Drug allergy (disorder) 7 [facility] (1 source) Penicillins Drug allergy (disorder) 2 [facility] Repository Medications Current Medications Medication Drug [...] Status: Ordered ciprofloxacin 500 mg oral tablet (20 sources) Quinolone Antimicrobial Start: 02-15-2022 take 1 [...] Kenton Lawson PA-C Start : 02-May-2022 Active irbesartan 300 mg oral tablet (14 sources) Angiotensin 2 Receptor Jennifer Start: 01-16-2022 irbesartan 300 mg Tab 300 mg = 1 tab(s), Refills(s) 0 Start Date: 04/13/24 Status: Ordered NIFEdipine 30 mg oral tablet (16 sources) Dihydropyridine Calcium Channel Jennifer Start: 01-19-2022 take 1 tablet by mouth once daily NIFEdipine 30 mg ER Tab 30 mg = 1 tab(s), Oral, Daily, Refills(s) 0 Start Date: 01/19/22 Status: Ordered Start: 01-17-2022 take 1 tablet by lianna once daily in the morning Nifedipine 30 mg tablet extended release 24 hr Active 30 MG PO Every morning January 17, 2022 12:00am pantoprazole 40 mg delayed release oral tablet (16 sources) Proton Pump Inhibitor Start: 04-15-2019 take 1 tablet by mouth once daily Pantoprazole 40 mg tablet,delayed release (DR/EC) Active 40 MG PO Daily January 17, 2022 12:00am potassium citrate 10 meq extended release oral tablet (2 sources) Start: 10-16-2022 End: 10-11-2023 potassium CITRATE 10 mEq ER Tab 20 mEq, 2 tab(s), Oral, BID for 30 day(s), 120 tab(s), Refill(s) 11, [id number], 170, cm, 10/16/22 14:31:00 EDT, [...] / HYDROcodone bitartrate 5 mg oral tablet (10 sources) Opioid Agonist Start: 01-19-2022 End: 02-15-2022 take 1 tablet by mouth every four to six hours as needed for pain Hydrocodone-Acetami nophen 5-325 mg tablet Discontinued 1 TAB PO EVERY 4-6 HOURS as needed for pain 10 January 19, 2022 February 15, 2022 7:49am chlorhexidine gluconate 40 mg/ml medicated liquid soap (17 sources) Start: 09-19-2021 Hibiclens 4 % External Liquid USE DIRECTED. Quantity: 1 Refills: 0 Ordered: 19-Sep-2021 Maik SHELTONN-MALE IMPERSONATOR Jacquie Start : 19-Sep-2021 Active Start: 06-02-2021 [...] Active hydroxychloroquine sulfate 200 mg oral tablet (16 sources) Antimalarial, Antirheumatic Agent Start: 04-15-2019 End: 02-15-2022 take 1 tablet by mouth twice daily Hydroxychloroquine 200 mg tablet Discontinued 200 MG PO Twice daily January 17, 2022 12:00am February 15, 2022 7:49am ketorolac tromethamine 10 mg oral tablet (10 sources) Nonsteroidal Anti-inflammatory Drug, Cyclooxygenase Inhibitor Start: [...] Active oxybutynin chloride 5 mg oral tablet (10 sources) Cholinergic Muscarinic Antagonist Start: 01-19-2022 End: 02-15-2022 take 1 tablet by mouth twice daily as needed for muscle spasms Oxybutynin Chloride 5 mg tablet Discontinued 5 MG PO Twice daily as needed for bladder spasms 60 January 19, 2022 12:00am February 15, 2022 7:49am tadalafil 10 mg oral tablet (3 sources) Phosphodiesterase 5 Inhibitor Start: 10-16-2022 tadalafil 10 mg Tab 10 mg = 1 tab(s), Oral, As Directed, PRN for erectile dysfunction, Take 1 tab by mouth one to two hours prior to sexual activity., # 30 tab(s), Refills(s) 3, Pharmacy: [id number], 170, cm, 10/16/22 14:31:00 EDT, Height/Length Dosing, 104.3, kg, 10/16/22 14:31:00 EDT, Weight Dosing Start Date: 10/16/22 Status: Ordered tamsulosin hydrochloride 0.4 mg oral capsule (10 sources) alpha-Adrenergic Jennifer Start: 01-17-2022 End: 02-15-2022 take 1 capsule by mouth once daily in the morning Tamsulosin 0.4 mg capsule Discontinued 0.4 MG PO Every morning January [...] kidney] Onset: 06-02-2021 Resolved: 04-15-2019 04-15-2019 Episodic Comment on above: Problem List clean-u p per request of Phys. EHR Cmte Complications of surgical procedures or medical care [...] source) Inflammatory polyarthropathy; Translations: [Inflammatory polyarthropathy] Onset: 10-13-2024 Chronic Spondylosis; intervertebral disc disorders; other back [...] 09-27-2021 Episodic Other aftercare (2 sources) Other longterm (current) drug therapy; Translations: [Other longterm (current) drug therapy] Onset: 06-02-2021 Episodic Other [...] Serum or PlasmaOrdered By: Sabrina Manriquez on 10-13-2024 ALT [Catalytic activity/Vol] Alanine aminotransferase [Enzymatic activity/volume] in Serum or Plasma 7-52 [facility] Albumin [Mass/volume] in Ser um or Plasma by Bromocresol green (BCG) dye binding methoOrdered By: Sabrina Manriquez on 10-13-2024 Albumin BCG dye [Mass/Vol] Albumin [Mass/volume] in Serum or Plasma by Bromocresol green (BCG) dye binding metho 3.5-5.7 [facility] Alkaline phosphatase [Enzyma tic activity/volume] in Serum or PlasmaOrdered By: Sabrina Manriquez on 10-13-2024 ALP [Catalytic activity/Vol] Alkaline phosphatase [Enzymatic activity/volume] in Serum or Plasma 34-104 [facility] Appearance of UrineOrdered B y: Sabrina Manriquez on 10-13-2024 Appearance (U) Urine appearance Clear [facility] Aspartate aminotransferase [ Enzymatic activity/volume] in Serum or PlasmaOrdered By: Sabrina Manriquez on 10-13-2024 AST [Catalytic activity/Vol] Aspartate aminotransferase [Enzymatic activity/volume] in Serum or Plasma 13-39 [facility] Bacteria [Presence] in Urine by AutomatedOrdered By: Sabrina Manriquez on 10-13-2024 Bacteria Auto Ql (U) Bacteria [Presence] in Urine by Automated None Seen [facility] Basophils Auto (Bld) [#/Vol] Ordered By: Sabrina Manriquez on 10-13-2024 Basophils (Bld) [#/Vol] Automated basophil count 0.0-0.2 [facility] Basophils/100 WBC Auto (Bld) Ordered By: Sabrina Manriquez on 10-13-2024 Basophils/100 WBC (Bld) Automated basophil % . [facility] Bilirubin Test strip Ql (U)O rdered By: Sabrina Manriquez on 10-13-2024 Bilirubin Ql (U) Bilirubin.total [Presence] in Urine by Test strip Negative [facility] Bilirubin.total [Mass/volume ] in Serum or PlasmaOrdered By: Sabrina Manriquez on 10-13-2024 Bilirubin [Mass/Vol] Bilirubin.total [Mass/volume] in Serum or Plasma 0.3-1.0 [facility] C reactive protein [Mass/vol ume] in Serum or PlasmaOrdered By: Sabrina Manriquez on 10-13-2024 CRP [Mass/Vol] C reactive protein [Mass/volume] in Serum or Plasma 0.0-0.5 [facility] C-Reactive Proteinon 025 CRP [Mass/Vol] mg/L Normal 0.0-0.5 [facility] Comment on above: Result Comment: PERF ORMED BY: [place] [address] PATHOLOGIST HAIRMASTERS MANAGER CHRIST FARAH M.D. Performed By: #### C BC, CMP, CRP, ESR, ADDONUAPLUS #### [place] [address] [place] #### C4, C3, CH50 #### [facility] , Calcium [Mass/volume] in Ser um or PlasmaOrdered By: Sabrina Manriquez on 10-13-2024 Calcium [Mass/Vol] Calcium [Mass/volume ] in Serum or Plasma 8.6-10.3 [facility] Carbon dioxide, total [Moles /volume] in Serum or PlasmaOrdered By: Sabrina Manriquez on 10-13-2024 CO2 [Moles/Vol] Carbon dioxide, tota l [Moles/volume] in Serum or Plasma 21.0-31.0 [facility] Chloride [Moles/volume] in S lenny or PlasmaOrdered By: Sabrina Manriquez on 10-13-2024 Chloride [Moles/Vol] Chloride [Moles/vol ume] in Serum or Plasma 98-107 [facility] Color Auto (U)Ordered By: Emily oMntiel on 10-13-2024 Color (U) Color of Urine by Auto Yellow [facility] Complement C3on 10-13-2024 Complement C3 126 mg/dL Normal 82-167 [facility] Comment on above: Result Comment: Perf ormed at: [facility] [place] [address] Nut Sheller: Derek Toscano PhD, Phone: [phone] Performed By: #### C BC, CMP, CRP, ESR, ADDONUAPLUS #### [address] #### C4, C3, CH50 #### [facility] , Complement C4on 10-13-2024 Complement C4 23 mg/dL Normal 12-38 [facility] Comment on above: Result Comment: Perf ormed at: [place] [address] Nut Sheller: Derek Toscano PhD, Phone: [phone] PERFORMED BY: [place] [address] PATHOLOGIST HA[employer]MASTERS MANAGER CHRIST FARAH M.D. Performed By: #### C BC, CMP, CRP, ESR, ADDONUAPLUS #### [place] [address] [place] #### C4, C3, CH50 #### [facility] , Complement Total (CH50)on Complement Total (CH50) 50 Normal >41 [facility] [...] out of range values. Performed at: - [facility] [id number] Nut Sheller: Derek Toscano PhD, Phone: [phone] PERFORMED BY: [place] [address] PATHOLOGIST [employer]MASTERS MANAGER CHRIST FARAH M.D. Performed By: #### C BC, CMP, CRP, ESR, ADDONUAPLUS #### [address] #### C4, C3, CH50 #### [facility] , Complete Blood Count Auto Di ffon 10-13-2024 Basophils (Bld) [#/Vol] 0.0 10*3/uL Normal 0.0-0.2 [facility] Comment on above: Performed By: #### C BC, CMP, CRP, ESR, ADDONUAPLUS #### [address] #### C4, C3, CH50 #### [facility] , Basophils/100 WBC (Bld) 0.6 % Normal . [facility] Comment on above: Performed By: #### C BC, CMP, CRP, ESR, ADDONUAPLUS #### [place] [address] [place] #### C4, C3, CH50 #### [facility] , Eosinophils (Bld) [#/Vol] 0.1 10*3/uL Normal 0.0-0.45 [facility] Comment on above: Performed By: #### C BC, CMP, CRP, ESR, ADDONUAPLUS #### [address] #### C4, C3, CH50 #### [facility] , Eosinophils/100 WBC (Bld) 1.2 % Normal . [facility] Comment on above: Performed By: #### C BC, CMP, CRP, ESR, ADDONUAPLUS #### [address] #### C4, C3, CH50 #### [facility] , Erythrocyte distribution width (RBC) [Ratio] 13.8 % Normal 12.0-14.8 [facility] Comment on above: Performed By: #### C BC, CMP, CRP, ESR, ADDONUAPLUS #### [address] #### C4, C3, CH50 #### [facility] , Hematocrit (Bld) [Volume fraction] 42.9 % Normal 38.8-50.0 [facility] Comment on above: Performed By: #### C BC, CMP, CRP, ESR, ADDONUAPLUS #### [address] #### C4, C3, CH50 #### [facility] , Hemoglobin (Bld) [Mass/Vol] 14.8 g/dL Normal 13.0-17.0 [facility] Comment on above: Performed By: #### C BC, CMP, CRP, ESR, ADDONUAPLUS #### [place] [address] [place] #### C4, C3, CH50 #### [facility] , Lymphocytes (Bld) [#/Vol] 1.1 10*3/uL Normal 1.00-4.8 [facility] Comment on above: Performed By: #### C BC, CMP, CRP, ESR, ADDONUAPLUS #### [place] [address] [place] #### C4, C3, CH50 #### [facility] , Lymphocytes/100 WBC (Bld) 15.9 % Normal . [facility] Comment on above: Performed By: #### C BC, CMP, CRP, ESR, ADDONUAPLUS #### [place] [address] [place] #### C4, C3, CH50 #### [facility] , MCH (RBC) [Entitic mass] 32.4 pg Normal 27.5-35.2 [facility] Comment on above: Performed By: #### C BC, CMP, CRP, ESR, ADDONUAPLUS #### [address] #### C4, C3, CH50 #### [facility] , MCV (RBC) [Entitic vol] 94.2 fL Normal 83.5-101 [facility] Comment on above: Performed By: #### C BC, CMP, CRP, ESR, ADDONUAPLUS #### [address] #### C4, C3, CH50 #### [facility] , Mean Corpuscular HGB Conc 34.4 g/dL Normal 32.5-35.6 [facility] Comment on above: Performed By: #### C BC, CMP, CRP, ESR, ADDONUAPLUS #### [address] #### C4, C3, CH50 #### [facility] , Monocytes (Bld) [#/Vol] 0.5 10*3/uL Normal 0.0-0.8 [facility] Comment on above: Performed By: #### C BC, CMP, CRP, ESR, ADDONUAPLUS #### [address] #### C4, C3, CH50 #### [facility] , Monocytes/100 WBC (Bld) 7.4 % Normal . [facility] Comment on above: Performed By: #### C BC, CMP, CRP, ESR, ADDONUAPLUS #### [address] #### C4, C3, CH50 #### [facility] , Neutrophils (Bld) [#/Vol] 5.1 10*3/uL Normal 1.8-7.7 [facility] Comment on above: Performed By: #### C BC, CMP, CRP, ESR, ADDONUAPLUS #### [address] #### C4, C3, CH50 #### [facility] , Neutrophils/100 WBC (Bld) 74.9 % Normal . [facility] Comment on above: Performed By: #### C BC, CMP, CRP, ESR, ADDONUAPLUS #### [place] [address] [place] #### C4, C3, CH50 #### [facility] , NRBC% 0.1 /100{WBC} Normal 0-0.5 [facility] Comment on above: Performed By: #### C BC, CMP, CRP, ESR, ADDONUAPLUS #### [place] [address] [place] #### C4, C3, CH50 #### [facility] , Platelet mean volume (Bld) [Entitic vol] 9.2 fL Normal 6.6-10.1 [facility] Comment on above: Performed By: #### C BC, CMP, CRP, ESR, ADDONUAPLUS #### [place] [address] [place] #### C4, C3, CH50 #### [facility] , Platelets (Bld) [#/Vol] 232 10*3/uL Normal 150-450 [facility] Comment on above: Performed By: #### C BC, CMP, CRP, ESR, ADDONUAPLUS #### [address] #### C4, C3, CH50 #### [facility] , RBC (Bld) [#/Vol] 4.56 10*6/uL Normal 3.90-5.60 [facility] Comment on above: Performed By: #### C BC, CMP, CRP, ESR, ADDONUAPLUS #### [place] [address] [place] #### C4, C3, CH50 #### [facility] , WBC (Bld) [#/Vol] 6.8 10*3/uL Normal 4.1-10.5 [facility] Comment on above: Performed By: #### C BC, CMP, CRP, ESR, ADDONUAPLUS #### [address] #### C4, C3, CH50 #### [facility] , Comprehensive Metabolic Pane tanika 10-13-2024 Albumin [Mass/Vol] 4.4 g/dL Normal 3.5-5.7 [facility] Comment on above: Performed By: #### C BC, CMP, CRP, ESR, ADDONUAPLUS #### [place] [address] [place] #### C4, C3, CH50 #### [facility] , Albumin/Globulin [Mass ratio] 1.7 {ratio} Normal [facility] Comment on above: Performed By: #### C BC, CMP, CRP, ESR, ADDONUAPLUS #### [place] [address] [place] #### C4, C3, CH50 #### [facility] , ALP [Catalytic activity/Vol] 92 U/L Normal 34-104 [facility] Comment on above: Performed By: #### C BC, CMP, CRP, ESR, ADDONUAPLUS #### [address] #### C4, C3, CH50 #### [facility] , ALT [Catalytic activity/Vol] 29 U/L Normal 7-52 [facility] Comment on above: Performed By: #### C BC, CMP, CRP, ESR, ADDONUAPLUS #### [address] #### C4, C3, CH50 #### [facility] , Anion gap [Moles/Vol] 11.0 mmol/L Normal 6.0-15.0 [facility] Comment on above: Performed By: #### C BC, CMP, CRP, ESR, ADDONUAPLUS #### [place] [address] [place] #### C4, C3, CH50 #### [facility] , AST [Catalytic activity/Vol] 30 U/L Normal 13-39 [facility] Comment on above: Performed By: #### C BC, CMP, CRP, ESR, ADDONUAPLUS #### [address] #### C4, C3, CH50 #### [facility] , Bilirubin [Mass/Vol] 0.7 mg/dL Normal 0.3-1.0 [facility] Comment on above: Performed By: #### C BC, CMP, CRP, ESR, ADDONUAPLUS #### [place] [address] [place] #### C4, C3, CH50 #### [facility] , Calcium [Mass/Vol] 9.4 mg/dL Normal 8.6-10.3 [facility] Comment on above: Performed By: #### C BC, CMP, CRP, ESR, ADDONUAPLUS #### [place] [address] [place] #### C4, C3, CH50 #### [facility] , Chloride [Moles/Vol] 105 mmol/L Normal 98-107 [facility] Comment on above: Performed By: #### C BC, CMP, CRP, ESR, ADDONUAPLUS #### [place] [address] [place] #### C4, C3, CH50 #### [facility] , CO2 [Moles/Vol] 27.9 mmol/L Normal 21.0-31.0 [facility] Comment on above: Performed By: #### C BC, CMP, CRP, ESR, ADDONUAPLUS #### [place] [address] [place] #### C4, C3, CH50 #### [facility] , Creatinine [Mass/Vol] 0.94 mg/dL Normal 0.70-1.30 [facility] Comment on above: Performed By: #### C BC, CMP, CRP, ESR, ADDONUAPLUS #### [place] [address] [place] #### C4, C3, CH50 #### [facility] , GFR/1.73 sq M.predicted MDRD (S/P/Bld) [Vol rate/Area] mL/min/{1.73_m2} Normal [facility] Comment on above: Performed By: #### C BC, CMP, CRP, ESR, ADDONUAPLUS #### [place] [address] [place] #### C4, C3, CH50 #### [facility] , Globulin (S) [Mass/Vol] 2.6 g/dL Normal [facility] Comment on above: Performed By: #### C BC, CMP, CRP, ESR, ADDONUAPLUS #### [place] [address] [place] #### C4, C3, CH50 #### [facility] , Glucose [Mass/Vol] 88 mg/dL Normal 70-100 [facility] Comment on above: Result Comment: [place] Glucose Reference Range is dependent on time and content of last meal. Glucose of more than 200 mg/dL in a nonstressed, ambulatory subject supports the diagnosis of Diabetes Mellitus. ADA recommended reference range Performed By: #### C BC, CMP, CRP, ESR, ADDONUAPLUS #### [address] #### C4, C3, CH50 #### [facility] , Potassium [Moles/Vol] 3.9 mmol/L Normal 3.5-5.1 [facility] Comment on above: Performed By: #### C BC, CMP, CRP, ESR, ADDONUAPLUS #### [place] [address] [place] #### C4, C3, CH50 #### [facility] , Protein [Mass/Vol] 7.0 g/dL Normal 6.4-8.9 [facility] Comment on above: Performed By: #### C BC, CMP, CRP, ESR, ADDONUAPLUS #### [address] #### C4, C3, CH50 #### [facility] , Sodium [Moles/Vol] 140 mmol/L Normal 136-145 [facility] Comment on above: Performed By: #### C BC, CMP, CRP, ESR, ADDONUAPLUS #### [place] [address] [place] #### C4, C3, CH50 #### [facility] , Urea nitrogen [Mass/Vol] 18 mg/dL Normal 7-25 [facility] Comment on above: Performed By: #### C BC, CMP, CRP, ESR, ADDONUAPLUS #### [address] #### C4, C3, CH50 #### [facility] , Creatinine [Mass/volume] in Serum or PlasmaOrdered By: Sabrina Manriquez on 10-13-2024 Creatinine [Mass/Vol] Creatinine [Mass/v olume] in Serum or Plasma 0.70-1.30 [facility] Dipstick and Microscopicon 0 10-13-2024 Appearance (U) Clear Normal Clear [facility] Comment on above: Order Comment: Name Collection Type:: Clean-Voided Midstream Performed By: #### C BC, CMP, CRP, ESR, ADDONUAPLUS #### [address] #### C4, C3, CH50 #### [facility] , Bacteria,Urine None Seen Normal None Seen [facility] Comment on above: Order Comment: Name Collection Type:: Clean-Voided Midstream Performed By: #### C BC, CMP, CRP, ESR, ADDONUAPLUS #### [address] #### C4, C3, CH50 #### [facility] , Bilirubin,Urine Negative Normal Negative [facility] Comment on above: Order Comment: Name Collection Type:: Clean-Voided Midstream Performed By: #### C BC, CMP, CRP, ESR, ADDONUAPLUS #### [address] #### C4, C3, CH50 #### [facility] , Color (U) Yellow Normal Yellow [facility] Comment on above: Order Comment: Name Collection Type:: Clean-Voided Midstream Performed By: #### C BC, CMP, CRP, ESR, ADDONUAPLUS #### [address] #### C4, C3, CH50 #### [facility] , Glucose Ql (U) Normal Normal Normal [facility] Comment on above: Order Comment: Name Collection Type:: Clean-Voided Midstream Performed By: #### C BC, CMP, CRP, ESR, ADDONUAPLUS #### [address] #### C4, C3, CH50 #### [facility] , Hyaline Casts,Urine None Normal 0-8 [facility] Comment on above: Order Comment: Name Collection Type:: Clean-Voided Midstream Performed By: #### C BC, CMP, CRP, ESR, ADDONUAPLUS #### [address] #### C4, C3, CH50 #### [facility] , Ketones Ql (U) Negative Normal Negative [facility] Comment on above: Order Comment: Name Collection Type:: Clean-Voided Midstream Performed By: #### C BC, CMP, CRP, ESR, ADDONUAPLUS #### [address] #### C4, C3, CH50 #### [facility] , Leukocyte esterase Test strip Ql (U) Negative Normal Negative [facility] Comment on above: Order Comment: Name Collection Type:: Clean-Voided Midstream Performed By: #### C BC, CMP, CRP, ESR, ADDONUAPLUS #### [address] #### C4, C3, CH50 #### [facility] , Mucus,Urine 1+ Critically abnormal [facility] Comment on above: Order Comment: Name Collection Type:: Clean-Voided Midstream Result Comment: PERF ORMED BY: [place] [address] PATHOLOGIST [employer] MANAGER CHRIST FARAH M.D. Performed By: #### C BC, CMP, CRP, ESR, ADDONUAPLUS #### [address] #### C4, C3, CH50 #### [facility] , Nitrite,Urine Negative Normal Negative [facility] Comment on above: Order Comment: Name Collection Type:: Clean-Voided Midstream Performed By: #### C BC, CMP, CRP, ESR, ADDONUAPLUS #### [address] #### C4, C3, CH50 #### [facility] , Occult Blood,Urine Negative Normal Negative [facility] Comment on above: Order Comment: Name Collection Type:: Clean-Voided Midstream Performed By: #### C BC, CMP, CRP, ESR, ADDONUAPLUS #### [address] #### C4, C3, CH50 #### [facility] , pH (U) 5.5 [pH] Normal 5.0-9.0 [facility] Comment on above: Order Comment: Name Collection Type:: Clean-Voided Midstream Performed By: #### C BC, CMP, CRP, ESR, ADDONUAPLUS #### [address] #### C4, C3, CH50 #### [facility] , Protein (U) [Mass/Vol] 20 mg/dL High Negative [facility] Comment on above: Order Comment: Name Collection Type:: Clean-Voided Midstream Performed By: #### C BC, CMP, CRP, ESR, ADDONUAPLUS #### [address] #### C4, C3, CH50 #### [facility] , RBC,Urine 1-2 Normal 0-4 [facility] Comment on above: Order Comment: Name Collection Type:: Clean-Voided Midstream Performed By: #### C BC, CMP, CRP, ESR, ADDONUAPLUS #### [address] #### C4, C3, CH50 #### [facility] , Specificy [place],Urine 1.024 Normal 1.001-1.03 0 [facility] Comment on above: Order Comment: Name Collection Type:: Clean-Voided Midstream Performed By: #### C BC, CMP, CRP, ESR, ADDONUAPLUS #### [address] #### C4, C3, CH50 #### [facility] , Squamous Epithelial Cell,Urine 1-2 Normal 0-2 [facility] Comment on above: Order Comment: Name Collection Type:: Clean-Voided Midstream Performed By: #### C BC, CMP, CRP, ESR, ADDONUAPLUS #### [address] #### C4, C3, CH50 #### [facility] , Urobilinogen,Urine Normal Normal Normal [facility] Comment on above: Order Comment: Name Collection Type:: Clean-Voided Midstream Performed By: #### C BC, CMP, CRP, ESR, ADDONUAPLUS #### [address] #### C4, C3, CH50 #### [facility] , WBC,Urine 1-2 Normal 0-4 [facility] Comment on above: Order Comment: Name Collection Type:: Clean-Voided Midstream Performed By: #### C BC, CMP, CRP, ESR, ADDONUAPLUS #### [address] #### C4, C3, CH50 #### [facility] , Eosinophils Auto (Bld) [#/Vo l]Ordered By: Sabrina Manriquez on 10-13-2024 Eosinophils (Bld) [#/Vol] Automated eosinophil count 0.0-0.45 [facility] Eosinophils/100 WBC Auto (Bl d)Ordered By: Sabrina Manriquez on 10-13-2024 Eosinophils/100 WBC (Bld) Automated eosinophil % . [facility] Epithelial cells.squamous [# /area] in Urine sediment by Automated countOrdered By: Sabrina Manriquez on 10-13-2024 Epithelial cells.squamous Auto (Urine sed) [#/Area] Epithelial cells.squamous [#/area] in Urine sediment by Automated count 0-2 [facility] Erythrocyte Sedimentation Ra natan 10-13-2024 ESR (Bld) [Velocity] 7 mm/h Normal 0-19 [facility] Comment on above: Result Comment: PERF ORMED BY: [place] [address] PATHOLOGIST [employer] MANAGER CHRIST FARAH M.D. Performed By: #### C BC, CMP, CRP, ESR, ADDONUAPLUS #### [place] [address] [place] #### C4, C3, CH50 #### [facility] , Erythrocyte distribution wid th Auto (RBC) [Ratio]Ordered By: Sabrina Manriquez on 10-13-2024 Erythrocyte distribution width (RBC) [Ratio] Erythrocyte distribution width [Ratio] by Automated count 12.0-14.8 [facility] Erythrocyte sedimentation ra te by Photometric methodOrdered By: Sabrina Manriquez on 10-13-2024 ESR Photometric method (Bld) [Velocity] Erythrocyte sedimentation rate by Photometric method 0-19 [facility] Erythrocytes [#/area] in Uri ne sediment by Automated countOrdered By: Sabrina Manriquez on 10-13-2024 RBC Auto (Urine sed) [#/Area] Erythrocytes [#/area] in Urine sediment by Automated count 0-4 [facility] Globulin Calc (S) [Mass/Vol] Ordered By: Sabrina Manriquez on 10-13-2024 Globulin (S) [Mass/Vol] Serum globulin measurement by calculation (mass/volume) [facility] Glucose [Mass/volume] in Ser um or PlasmaOrdered By: Sabrina Manriquez on 10-13-2024 Glucose [Mass/Vol] Glucose [Mass/volume ] in Serum or Plasma 70-100 [facility] Comment on above: ADA recommended refe rence rangeRandom Glucose Reference Range is dependent on time and content of last meal. Glucose of more than 200 mg/dL in a nonstressed, ambulatory subject supports the diagnosis of Diabetes Mellitus. Glucose [Mass/volume] in Uri ne by Test stripOrdered By: Sabrina Manriquez on 10-13-2024 Glucose Test strip (U) [Mass/Vol] Glucose [Mass/volume] in Urine by Test strip Normal [facility] Hematocrit Auto (Bld) [Volum e fraction]Ordered By: Sabrina Manriquez on 10-13-2024 Hematocrit (Bld) [Volume fraction] Hematocrit [Volume Fraction] of Blood by Automated count 38.8-50.0 [facility] Hemoglobin Test strip Ql (U) Ordered By: Sabrina Manriquez on 10-13-2024 Hemoglobin Ql (U) Hemoglobin [Presence ] in Urine by Test strip Negative [facility] Hemoglobin [Mass/volume] in BloodOrdered By: Sabrina Manriquez on 10-13-2024 Hemoglobin (Bld) [Mass/Vol] Hemoglobin [Mass/volume] in Blood 13.0-17.0 [facility] Hyaline casts [#/area] in Ur ine sediment by Automated countOrdered By: Sabrina Manriquez on 10-13-2024 Hyaline casts Auto (Urine sed) [#/Area] Hyaline casts [#/area] in Urine sediment by Automated count 0-8 [facility] Ketones Test strip Ql (U)Ord ered By: Sabrina Manriquez on 10-13-2024 Ketones Ql (U) Ketones [Presence] i n Urine by Test strip Negative [facility] Leukocyte esterase [Presence ] in Urine by Test stripOrdered By: Sabrina Manriquez on 10-13-2024 Leukocyte esterase Test strip Ql (U) Leukocyte esterase [Presence] in Urine by Test strip Negative [facility] Leukocytes [#/area] in Urine sediment by Automated countOrdered By: Sabrina Manriquez on 10-13-2024 WBC Auto (Urine sed) [#/Area] Leukocytes [#/area] in Urine sediment by Automated count 0-4 [facility] Leukocytes [#/volume] correc leah for nucleated erythrocytes in Blood by Automated counOrdered By: Sabrina Manriquez on 10-13-2024 WBC corrected for nucl RBC Auto (Bld) [#/Vol] Leukocytes [#/volume] corrected for nucleated erythrocytes in Blood by Automated coun 4.1-10.5 [facility] Lymphocytes Auto (Bld) [#/Vo l]Ordered By: Sabrina Manriquez on 10-13-2024 Lymphocytes (Bld) [#/Vol] Lymphocytes [#/volume] in Blood by Automated count 1.00-4.8 [facility] Lymphocytes/100 WBC Auto (Bl d)Ordered By: Sabrina Manriquez on 10-13-2024 Lymphocytes/100 WBC (Bld) Lymphocytes/100 leukocytes in Blood by Automated count . [facility] MCH Auto (RBC) [Entitic mass ]Ordered By: Sabrina Manriquez on 10-13-2024 MCH (RBC) [Entitic mass] MCH [Entitic mass] by Automated count 27.5-35.2 [facility] MCHC Auto (RBC) [Mass/Vol]Or dered By: Sabrina Manriquez on 10-13-2024 MCHC (RBC) [Mass/Vol] MCHC [Mass/volume] by Automated count 32.5-35.6 [facility] MCV Auto (RBC) [Entitic vol] Ordered By: Sabrina Manriquez on 10-13-2024 MCV (RBC) [Entitic vol] MCV [Entitic volume] by Automated count 83.5-101 [facility] Monocytes Auto (Bld) [#/Vol] Ordered By: Sabrina Manriquez on 10-13-2024 Monocytes (Bld) [#/Vol] Automated blood monocyte count 0.0-0.8 [facility] Monocytes/100 WBC Auto (Bld) Ordered By: Sabrina Manriquez on 10-13-2024 Monocytes/100 WBC (Bld) Automated monocyte % . [facility] Mucus [Presence] in Urine by AutomatedOrdered By: Sabrina Manriquez on 10-13-2024 Mucus Auto Ql (U) Mucus [Presence] in Urine by Automated Abnormal [facility] Neutrophils Auto (Bld) [#/Vo l]Ordered By: Sabrina Manriquez on 10-13-2024 Neutrophils (Bld) [#/Vol] Neutrophils [#/volume] in Blood by Automated count 1.8-7.7 [facility] Neutrophils/100 WBC Auto (Bl d)Ordered By: Sabrina Manriquez on 10-13-2024 Neutrophils/100 WBC (Bld) Automated neutrophil % . [facility] Nitrite Test strip Ql (U)Ord ered By: Sabrina Manriquez on 10-13-2024 Nitrite Ql (U) Nitrite [Presence] i n Urine by Test strip Negative [facility] No Panel InformationOrdered By: Sabrina Manriquez on 10-13-2024 Estimated GFR (CKD-EPI) > 60.0 mL/Min [facility] Creatinine Clearance (Chem N/A [facility] Nucleated erythrocytes [Pres ence] in Blood by Automated countOrdered By: Sabrina Manriquez on 10-13-2024 Nucleated RBC Auto Ql (Bld) Nucleated erythrocytes [Presence] in Blood by Automated count 0-0.5 [facility] Platelet mean volume Auto (B ld) [Entitic vol]Ordered By: Sabrina Manriquez on 10-13-2024 Platelet mean volume (Bld) [Entitic vol] Platelet mean volume [Entitic volume] in Blood by Automated count 6.6-10.1 [facility] Platelets Auto (Bld) [#/Vol] Ordered By: Sabrina Manriquez on 10-13-2024 Platelets (Bld) [#/Vol] Platelets [#/volume] in Blood by Automated count 150-450 [facility] Potassium [Moles/volume] in Serum or PlasmaOrdered By: Sabrina Manriquez on 10-13-2024 Potassium [Moles/Vol] Potassium [Moles/v olume] in Serum or Plasma 3.5-5.1 [facility] Protein Test strip (U) [Mass /Vol]Ordered By: Sabrina Manriquez on 10-13-2024 Protein (U) [Mass/Vol] Protein [Mass/vol ume] in Urine by Test strip High Negative [facility] Protein [Mass/volume] in Ser um or PlasmaOrdered By: Sabrina Manriquez on 10-13-2024 Protein [Mass/Vol] Protein [Mass/volume ] in Serum or Plasma 6.4-8.9 [facility] RBC Auto (Bld) [#/Vol]Ordere d By: Sabrina Manriquez on 10-13-2024 RBC (Bld) [#/Vol] Erythrocytes [#/volu me] in Blood by Automated count 3.90-5.60 [facility] Serum or plasma albumin/glob ulin mass ratioOrdered By: Sabrina Manriquez on 10-13-2024 Albumin/Globulin [Mass ratio] Serum or plasma albumin/globulin mass ratio [facility] Serum or plasma anion gap de terminationOrdered By: Sabrina Manriquez on 10-13-2024 Anion gap [Moles/Vol] Serum or plasma an ion gap determination 6.0-15.0 [facility] Sodium [Moles/volume] in Ser um or PlasmaOrdered By: Sabrina Manriquez on 10-13-2024 Sodium [Moles/Vol] Sodium [Moles/volume ] in Serum or Plasma 136-145 [facility] Specific gravity Test strip (U) [Rel density]Ordered By: Sabrina Manriquez on 10-13-2024 Specific gravity (U) [Rel density] Specific gravity of Urine by Test strip 1.001-1.03 0 [facility] Urea nitrogen [Mass/volume] in Serum or PlasmaOrdered By: Sabrina Manriquez on 10-13-2024 Urea nitrogen [Mass/Vol] Urea nitrogen [Mass/volume] in Serum or Plasma 7-25 [facility] Urobilinogen Test strip (U) [Mass/Vol]Ordered By: Sabrina Manriquez on 10-13-2024 Urobilinogen (U) [Mass/Vol] Urobilinogen [Mass/volume] in Urine by Test strip Normal [facility] WBC Auto (Bld) [#/Vol]Ordere d By: Sabrina Manriquez on 10-13-2024 WBC (Bld) [#/Vol] Leukocytes [#/volume ] in Blood by Automated count 4.1-10.5 [facility] pH Test strip (U)Ordered By: Sabrina Manriquez on 10-13-2024 pH (U) pH of Urine by Test strip 5.0-9.0 [facility] Ambulatory Visit Summaryon 1 Ambulatory Visit [...] Shun MACHADO MD Primary Care Physician - Dania Armstrong MD This Is Your Medications List [...] Shun MACHADO MD Where: [facility] [address] [address]- You Need to Schedule the Following Appointments Follow Up with Shun MACHADO MD, URL When: Where: [address] [address]- Medications What How Much When Instructions Unchanged [...] tips fo (more content not included)... Normal [facility] Urology Office/Clinic Noteon 04-13-2024 Urology Office/Clinic [...] Information CHRIS RIVERA, Shun Mirza, URL [address] [place] [id number]- Additional Instructions: 2 yr with KUB and [...] with voice recognition artificial intelligence software, specifically [employer], [employer] mobile and or [email or web address]. Substitutions may have occurred due to the [...] Hypocitraturia Kidney stone (more content not included)... [facility] Comment on above: Result Comment: Elec tronically Signed By: Shun MACHADO MD P\.br\Date and Time Signed: 04/13/24 10:19 EDT\.br\Electronically Co-Signed By: Mary Alicea\.br\Date and Time Co-Signed: 04/13/24 10:15 EDT Provider Letteron 03-27-2024 Provider Letter Provider Letter March 27, 2024 [address] [place] [id number] : 1960 Dear Jay , We have been trying to reach you with no success. It is important that you return our call regarding need to repeat gallbladder ultrasound upon receiving this letter. Thank you for your prompt attention to this matter. Sincerely, Dr. Arely Logan MD General Surgery [facility] Alanine aminotransferase [En zymatic activity/volume] in Serum or PlasmaOrdered By: Sabrina Manriquez on 03-04-2024 ALT [Catalytic activity/Vol] 27 U/L Normal 7-52 [facility] Comment on above: Performed By: #### C MP, ADDONUAPLUS, CRP, CBC, ESR #### [facility] [address] [place] [address] [place] #### C3, C4, CH50 #### [facility] , Albumin [Mass/volume] in Ser um or Plasma by Bromocresol green (BCG) dye binding methoOrdered By: Sabrina Manriquez on 03-04-2024 Albumin BCG dye [Mass/Vol] 4.4 g/dL 3.5-5.7 [facility] Alkaline phosphatase [Enzyma tic activity/volume] in Serum or PlasmaOrdered By: Sabrina Manriquez on 03-04-2024 ALP [Catalytic activity/Vol] 92 U/L Normal 34-104 [facility] Comment on above: Performed By: #### C MP, ADDONUAPLUS, CRP, CBC, ESR #### [facility] [address] [place] [address] [place] #### C3, C4, CH50 #### [facility] , Aspartate aminotransferase [ Enzymatic activity/volume] in Serum or PlasmaOrdered By: Sabrina Manriquez on 03-04-2024 AST [Catalytic activity/Vol] 21 U/L Normal 13-39 [facility] Comment on above: Performed By: #### C MP, ADDONUAPLUS, CRP, CBC, ESR #### [facility] [address] [place] [address] [place] #### C3, C4, CH50 #### [facility] , Automated basophil %Ordered By: Sabrina Manriquez on 03-04-2024 Basophils/100 WBC (Bld) 0.6 % Normal . [facility] Comment on above: Performed By: #### C BC, CMP, CRP, ESR, ADDONUAPLUS #### [facility] [address] [place] [address] [place] #### C4, C3, CH50 #### [facility] , Automated basophil countOrde red By: Sabrina Manriquez on 03-04-2024 Basophils (Bld) [#/Vol] 0.0 10*3/uL Normal 0.0-0.2 [facility] Comment on above: Performed By: #### C BC, CMP, CRP, ESR, ADDONUAPLUS #### [place] [address] [place] #### C4, C3, CH50 #### [facility] , Automated blood monocyte cou ntOrdered By: Sabrina Manriquez on 03-04-2024 Monocytes (Bld) [#/Vol] 0.3 10*3/uL Normal 0.0-0.8 [facility] Comment on above: Performed By: #### C BC, CMP, CRP, ESR, ADDONUAPLUS #### [address] #### C4, C3, CH50 #### [facility] , Automated eosinophil %Ordere d By: Sabrina Manriquez on 03-04-2024 Eosinophils/100 WBC (Bld) 1.3 % Normal . [facility] Comment on above: Performed By: #### C BC, CMP, CRP, ESR, ADDONUAPLUS #### [facility] [address] [place] [address] [place] #### C4, C3, CH50 #### [facility] , Automated eosinophil countOr dered By: Sabrina Manriquez on 03-04-2024 Eosinophils (Bld) [#/Vol] 0.1 10*3/uL Normal 0.0-0.45 [facility] Comment on above: Performed By: #### C BC, CMP, CRP, ESR, ADDONUAPLUS #### [facility] [address] [place] [address] [place] #### C4, C3, CH50 #### [facility] , Automated monocyte %Ordered By: Sabrina Manriquez on 03-04-2024 Monocytes/100 WBC (Bld) 6.6 % Normal . [facility] Comment on above: Performed By: #### C BC, CMP, CRP, ESR, ADDONUAPLUS #### [facility] [address] [place] [address] [place] #### C4, C3, CH50 #### [facility] , Automated neutrophil %Ordere d By: Sabrina Manriquez on 03-04-2024 Neutrophils/100 WBC (Bld) 70.7 % Normal . [facility] Comment on above: Performed By: #### C BC, CMP, CRP, ESR, ADDONUAPLUS #### [facility] [address] [place] [address] [place] #### C4, C3, CH50 #### [facility] , Bacteria [Presence] in Urine by AutomatedOrdered By: Sabrina Manriquez on 03-04-2024 Bacteria Auto Ql (U) None seen [HPF] None Seen [facility] Bilirubin Test strip Ql (U)O rdered By: Sabrina Manriquez on 03-04-2024 Bilirubin Ql (U) Negative Negative [facility] Bilirubin.total [Mass/volume ] in Serum or PlasmaOrdered By: Sabrina Manriquez on 03-04-2024 Bilirubin [Mass/Vol] 0.6 mg/dL Normal 0.3-1.0 [facility] Comment on above: Performed By: #### C MP, ADDONUAPLUS, CRP, CBC, ESR #### [facility] [address] [place] [address] [place] #### C3, C4, CH50 #### [facility] , C reactive protein [Mass/vol ume] in Serum or PlasmaOrdered By: Sabrina Manriquez on 03-04-2024 CRP [Mass/Vol] < 0.5 mg/dL 0.0-0.5 [facility] C-Reactive Proteinon 024 CRP [Mass/Vol] mg/L Normal 0.0-0.5 [facility] Comment on above: Result Comment: PERF ORMED BY: [place] [address] PATHOLOGIST [employer] MANAGER KRISTIE BAKER M.D. Performed By: #### C BC, CMP, CRP, ESR, ADDONUAPLUS #### [place] [address] [place] #### C4, C3, CH50 #### [facility] , Calcium [Mass/volume] in Ser um or PlasmaOrdered By: Sabrina Manriquez on 03-04-2024 Calcium [Mass/Vol] 9.2 mg/dL Normal 8.6-10.3 [facility] Comment on above: Performed By: #### C MP, ADDONUAPLUS, CRP, CBC, ESR #### [place] [address] [place] #### C3, C4, CH50 #### [facility] , Carbon dioxide, total [Moles /volume] in Serum or PlasmaOrdered By: Sabrina Manriquez on 03-04-2024 CO2 [Moles/Vol] 29.4 mmol/L Normal 21.0-31.0 [facility] Comment on above: Performed By: #### C MP, ADDONUAPLUS, CRP, CBC, ESR #### [place] [address] [place] #### C3, C4, CH50 #### [facility] , Chloride [Moles/volume] in S lenny or PlasmaOrdered By: Sabrina Manriquez on 03-04-2024 Chloride [Moles/Vol] 104 mmol/L Normal 98-107 [facility] Comment on above: Performed By: #### C MP, ADDONUAPLUS, CRP, CBC, ESR #### [place] [address] [place] #### C3, C4, CH50 #### [facility] , Color of Urine by AutoOrdere d By: Sabrina Manriquez on 03-04-2024 Color (U) Light-yellow Normal Yellow [facility] Comment on above: Order Comment: Name Collection Type:: Clean-Voided Midstream Performed By: #### C MP, ADDONUAPLUS, CRP, CBC, ESR #### [address] #### C3, C4, CH50 #### [facility] , Complement C3on 03-04-2024 Complement C3 138 mg/dL Normal 82-167 [facility] Comment on above: Result Comment: Perf ormed at: [address] [id number] [employer]: Derek Toscano PhD, Phone: [phone] Performed By: #### C BC, CMP, CRP, ESR, ADDONUAPLUS #### [address] #### C4, C3, CH50 #### [facility] , Complement C4on 03-04-2024 Complement C4 23 mg/dL Normal 12-38 [facility] Comment on above: Result Comment: PERF ORMED BY: [place] [address] PATHOLOGIST [employer] MANAGER KRISTIE BAKER M.D. Performed By: #### C BC, CMP, CRP, ESR, ADDONUAPLUS #### [address] #### C4, C3, CH50 #### [facility] [...] determine out of range values. Performed at: [address] [id number] [employer]: Derek Toscano PhD, Phone: [phone] PERFORMED BY: [place] [address] PATHOLOGIST [employer] MANAGER KRISTIE BAKER M.D. Performed By: #### C BC, CMP, CRP, ESR, ADDONUAPLUS #### [place] [address] [place] #### C4, C3, CH50 #### [facility] , Complete Blood Count Auto Di ffon 03-04-2024 Mean Corpuscular HGB Conc 34.2 g/dL Normal 32.5-35.6 [facility] Comment on above: Performed By: #### C BC, CMP, CRP, ESR, ADDONUAPLUS #### [address] #### C4, C3, CH50 #### [facility] , NRBC% 0.1 /100{WBC} Normal 0-0.5 [facility] Comment on above: Performed By: #### C BC, CMP, CRP, ESR, ADDONUAPLUS #### [place] [address] [place] #### C4, C3, CH50 #### [facility] , Comprehensive Metabolic Pane tanika 03-04-2024 Albumin [Mass/Vol] 4.4 g/dL Normal 3.5-5.7 [facility] Comment on above: Performed By: #### C MP, ADDONUAPLUS, CRP, CBC, ESR #### [place] [address] [place] #### C3, C4, CH50 #### [facility] , GFR/1.73 sq M.predicted MDRD (S/P/Bld) [Vol rate/Area] mL/min/{1.73_m2} Normal [facility] Comment on above: Performed By: #### C MP, ADDONUAPLUS, CRP, CBC, ESR #### [facility] [address] #### C3, C4, CH50 #### [facility] , Creatinine [Mass/volume] in Serum or PlasmaOrdered By: Sabrina Manriquez on 03-04-2024 Creatinine [Mass/Vol] 0.93 mg/dL Normal 0.70-1.30 [facility] Comment on above: Performed By: #### C MP, ADDONUAPLUS, CRP, CBC, ESR #### [address] #### C3, C4, CH50 #### [facility] , Dipstick and Microscopicon 0 03-04-2024 Bacteria,Urine None Seen Normal None Seen [facility] Comment on above: Order Comment: Name Collection Type:: Clean-Voided Midstream Performed By: #### C MP, ADDONUAPLUS, CRP, CBC, ESR #### [address] #### C3, C4, CH50 #### [facility] , Bilirubin,Urine Negative Normal Negative [facility] Comment on above: Order Comment: Name Collection Type:: Clean-Voided Midstream Performed By: #### C MP, ADDONUAPLUS, CRP, CBC, ESR #### [address] #### C3, C4, CH50 #### [facility] , Glucose Ql (U) Normal Normal Normal [facility] Comment on above: Order Comment: Name Collection Type:: Clean-Voided Midstream Performed By: #### C MP, ADDONUAPLUS, CRP, CBC, ESR #### [address] #### C3, C4, CH50 #### [facility] , Hyaline Casts,Urine None Normal 0-8 [facility] Comment on above: Order Comment: Name Collection Type:: Clean-Voided Midstream Performed By: #### C MP, ADDONUAPLUS, CRP, CBC, ESR #### [address] #### C3, C4, CH50 #### [facility] , Mucus,Urine Rare Normal [facility] Comment on above: Order Comment: Name Collection Type:: Clean-Voided Midstream Result Comment: PERF ORMED BY: [place] [address] PATHOLOGIST [employer] MANAGER KRISTIE BAKER M.D. Performed By: #### C MP, ADDONUAPLUS, CRP, CBC, ESR #### [address] #### C3, C4, CH50 #### [facility] , Nitrite,Urine Negative Normal Negative [facility] Comment on above: Order Comment: Name Collection Type:: Clean-Voided Midstream Performed By: #### C MP, ADDONUAPLUS, CRP, CBC, ESR #### [address] #### C3, C4, CH50 #### [facility] , Occult Blood,Urine Negative Normal Negative [facility] Comment on above: Order Comment: Name Collection Type:: Clean-Voided Midstream Performed By: #### C MP, ADDONUAPLUS, CRP, CBC, ESR #### [address] #### C3, C4, CH50 #### [facility] , Protein,Urine Trace High Negative [facility] Comment on above: Order Comment: Name Collection Type:: Clean-Voided Midstream Performed By: #### C MP, ADDONUAPLUS, CRP, CBC, ESR #### [address] #### C3, C4, CH50 #### [facility] , RBC,Urine 1-2 Normal 0-4 [facility] Comment on above: Order Comment: Name Collection Type:: Clean-Voided Midstream Performed By: #### C MP, ADDONUAPLUS, CRP, CBC, ESR #### [address] #### C3, C4, CH50 #### [facility] , Specificy [place],Urine 1.020 Normal 1.001-1.03 0 [facility] Comment on above: Order Comment: Name Collection Type:: Clean-Voided Midstream Performed By: #### C MP, ADDONUAPLUS, CRP, CBC, ESR #### [address] #### C3, C4, CH50 #### [facility] , Urobilinogen,Urine Normal Normal Normal [facility] Comment on above: Order Comment: Name Collection Type:: Clean-Voided Midstream Performed By: #### C MP, ADDONUAPLUS, CRP, CBC, ESR #### [address] #### C3, C4, CH50 #### [facility] , WBC,Urine 1-2 Normal 0-4 [facility] Comment on above: Order Comment: Name Collection Type:: Clean-Voided Midstream Performed By: #### C MP, ADDONUAPLUS, CRP, CBC, ESR #### [address] #### C3, C4, CH50 #### [facility] , Epithelial cells.squamous [# /area] in Urine sediment by Automated countOrdered By: Sabrina Manriquez on 03-04-2024 Epithelial cells.squamous Auto (Urine sed) [#/Area] N/A [facility] Erythrocyte Sedimentation Ra natan 03-04-2024 ESR (Bld) [Velocity] 9 mm/h Normal 0-19 [facility] Comment on above: Result Comment: PERF ORMED BY: [place] [address] PATHOLOGIST [employer] MANAGER KRISTIE BAKER M.D. Performed By: #### C BC, CMP, CRP, ESR, ADDONUAPLUS #### [facility] [address] [place] [address] [place] #### C4, C3, CH50 #### [facility] , Erythrocyte distribution wid th [Ratio] by Automated countOrdered By: Sabrina Manriquez on 03-04-2024 Erythrocyte distribution width (RBC) [Ratio] 13.6 % Normal 12.0-14.8 [facility] Comment on above: Performed By: #### C BC, CMP, CRP, ESR, ADDONUAPLUS #### [address] #### C4, C3, CH50 #### [facility] , Erythrocyte sedimentation ra te by Photometric methodOrdered By: Sabrina Manriquez on 03-04-2024 ESR Photometric method (Bld) [Velocity] 9 mm/hr 0-19 [facility] Erythrocytes [#/area] in Uri ne sediment by Automated countOrdered By: Sabrina Manriquez on 03-04-2024 RBC Auto (Urine sed) [#/Area] 1-2 [HPF] 0-4 [facility] Erythrocytes [#/volume] in B lood by Automated countOrdered By: Sabrina Manriquez on 03-04-2024 RBC (Bld) [#/Vol] 4.54 10*6/uL Normal 3.90-5.60 [facility] Comment on above: Performed By: #### C BC, CMP, CRP, ESR, ADDONUAPLUS #### [facility] [address] [place] [address] [place] #### C4, C3, CH50 #### [facility] , Glucose [Mass/volume] in Ser um or PlasmaOrdered By: Sabrina Manriquez on 03-04-2024 Glucose [Mass/Vol] 132 mg/dL High 70-100 [facility] Comment on above: ADA recommended refe rence rangeRandom Glucose Reference Range is dependent on time and content of last meal. Glucose of more than 200 mg/dL in a nonstressed, ambulatory subject supports the diagnosis of Diabetes Mellitus. Result Comment: [place] om Glucose Reference Range is dependent on time and content of last meal. Glucose of more than 200 mg/dL in a nonstressed, ambulatory subject supports the diagnosis of Diabetes Mellitus. ADA recommended reference range Performed By: #### C MP, ADDONUAPLUS, CRP, CBC, ESR #### [address] #### C3, C4, CH50 #### [facility] , Glucose [Mass/volume] in Uri ne by Test stripOrdered By: Sabrina Manriquez on 03-04-2024 Glucose Test strip (U) [Mass/Vol] Normal mg/dL Normal [facility] Hematocrit [Volume Fraction] of Blood by Automated countOrdered By: Sabrina Manriquez on 03-04-2024 Hematocrit (Bld) [Volume fraction] 42.8 % Normal 38.8-50.0 [facility] Comment on above: Performed By: #### C BC, CMP, CRP, ESR, ADDONUAPLUS #### [place] [address] [place] #### C4, C3, CH50 #### [facility] , Hemoglobin Test strip Ql (U) Ordered By: Sabrina Manriquez on 03-04-2024 Hemoglobin Ql (U) Negative Negative [facility] Hemoglobin [Mass/volume] in BloodOrdered By: Sabrina Manriquez on 03-04-2024 Hemoglobin (Bld) [Mass/Vol] 14.6 g/dL Normal 13.0-17.0 [facility] Comment on above: Performed By: #### C BC, CMP, CRP, ESR, ADDONUAPLUS #### [place] [address] [place] #### C4, C3, CH50 #### [facility] , Hyaline casts [#/area] in Ur ine sediment by Automated countOrdered By: Sabrina Manriquez on 03-04-2024 Hyaline casts Auto (Urine sed) [#/Area] None [LPF] 0-8 [facility] Ketones [Presence] in Urine by Test stripOrdered By: Sabrina Manriquez on 03-04-2024 Ketones Ql (U) Negative Normal Negative [facility] Comment on above: Order Comment: Name Collection Type:: Clean-Voided Midstream Performed By: #### C MP, ADDONUAPLUS, CRP, CBC, ESR #### [address] #### C3, C4, CH50 #### [facility] , Leukocyte esterase [Presence ] in Urine by Test stripOrdered By: Sabrina Manriquez on 03-04-2024 Leukocyte esterase Test strip Ql (U) Negative Normal Negative [facility] Comment on above: Order Comment: Name Collection Type:: Clean-Voided Midstream Performed By: #### C MP, ADDONUAPLUS, CRP, CBC, ESR #### [facility] [address] [place] [address] [place] #### C3, C4, CH50 #### [facility] , Leukocytes [#/area] in Urine sediment by Automated countOrdered By: Sabrina Manriquez on 03-04-2024 WBC Auto (Urine sed) [#/Area] 1-2 [HPF] 0-4 [facility] Leukocytes [#/volume] correc leah for nucleated erythrocytes in Blood by Automated counOrdered By: Sabrina Manriquez on 03-04-2024 WBC corrected for nucl RBC Auto (Bld) [#/Vol] 5.1 10*3/uL 4.1-10.5 [facility] Leukocytes [#/volume] in Blo od by Automated countOrdered By: Sabrina Manriquez on 03-04-2024 WBC (Bld) [#/Vol] 5.1 10*3/uL Normal 4.1-10.5 [facility] Comment on above: Performed By: #### C BC, CMP, CRP, ESR, ADDONUAPLUS #### [place] [address] [place] #### C4, C3, CH50 #### [facility] , Lymphocytes [#/volume] in Bl ood by Automated countOrdered By: Sabrina Manriquez on 03-04-2024 Lymphocytes (Bld) [#/Vol] 1.1 10*3/uL Normal 1.00-4.8 [facility] Comment on above: Performed By: #### C BC, CMP, CRP, ESR, ADDONUAPLUS #### [place] [address] [place] #### C4, C3, CH50 #### [facility] , Lymphocytes/100 leukocytes i n Blood by Automated countOrdered By: Sabrina Manriquez on 03-04-2024 Lymphocytes/100 WBC (Bld) 20.8 % Normal . [facility] Comment on above: Performed By: #### C BC, CMP, CRP, ESR, ADDONUAPLUS #### [place] [address] [place] #### C4, C3, CH50 #### [facility] , MCH [Entitic mass] by Automa leah countOrdered By: Sabrina Manriquez on 03-04-2024 MCH (RBC) [Entitic mass] 32.2 pg Normal 27.5-35.2 [facility] Comment on above: Performed By: #### C BC, CMP, CRP, ESR, ADDONUAPLUS #### [place] [address] [place] #### C4, C3, CH50 #### [facility] , MCHC Auto (RBC) [Mass/Vol]Or dered By: Sabrina Manriquez on 03-04-2024 MCHC (RBC) [Mass/Vol] 34.2 g/dL 32.5-35.6 [facility] MCV [Entitic volume] by Auto mated countOrdered By: Sabrina Manriquez on 03-04-2024 MCV (RBC) [Entitic vol] 94.2 fL Normal 83.5-101 [facility] Comment on above: Performed By: #### C BC, CMP, CRP, ESR, ADDONUAPLUS #### [facility] [address] [place] [address] #### C4, C3, CH50 #### [facility] , Mucus [Presence] in Urine by AutomatedOrdered By: Sabrina Manriquez on 03-04-2024 Mucus Auto Ql (U) Rare [LPF] [facility] Neutrophils [#/volume] in Bl ood by Automated countOrdered By: Sabrina Manriquez on 03-04-2024 Neutrophils (Bld) [#/Vol] 3.6 10*3/uL Normal 1.8-7.7 [facility] Comment on above: Performed By: #### C BC, CMP, CRP, ESR, ADDONUAPLUS #### [facility] [address] [place] [address] #### C4, C3, CH50 #### [facility] , Nitrite Test strip Ql (U)Ord ered By: Sabrina Manriquez on 03-04-2024 Nitrite Ql (U) Negative Negative [facility] No Panel InformationOrdered By: Sabrina Manriquez on 03-04-2024 Estimated GFR (CKD-EPI) > 60.0 mL/Min [facility] Creatinine Clearance (Chem N/A [facility] Nucleated erythrocytes [Pres ence] in Blood by Automated countOrdered By: Sabrina Manriquez on 03-04-2024 Nucleated RBC Auto Ql (Bld) 0.1 /100{WBC} 0-0.5 [facility] Platelet mean volume [Entiti c volume] in Blood by Automated countOrdered By: Sabrina Manriquez on 03-04-2024 Platelet mean volume (Bld) [Entitic vol] 9.1 fL Normal 6.6-10.1 [facility] Comment on above: Performed By: #### C BC, CMP, CRP, ESR, ADDONUAPLUS #### [facility] [address] [place] [address] [place] #### C4, C3, CH50 #### [facility] , Platelets [#/volume] in Bloo d by Automated countOrdered By: Sabrina Manriquez on 03-04-2024 Platelets (Bld) [#/Vol] 235 10*3/uL Normal 150-450 [facility] Comment on above: Performed By: #### C BC, CMP, CRP, ESR, ADDONUAPLUS #### [place] [address] [place] #### C4, C3, CH50 #### [facility] , Potassium [Moles/volume] in Serum or PlasmaOrdered By: Sabrina Manriquez on 03-04-2024 Potassium [Moles/Vol] 4.2 mmol/L Normal 3.5-5.1 [facility] Comment on above: Performed By: #### C MP, ADDONUAPLUS, CRP, CBC, ESR #### [place] [address] [place] #### C3, C4, CH50 #### [facility] , Protein Test strip (U) [Mass /Vol]Ordered By: Sabrina Manriquez on 03-04-2024 Protein (U) [Mass/Vol] Trace mg/dL High Negative [facility] Protein [Mass/volume] in Ser um or PlasmaOrdered By: Sabrina Manriquez on 03-04-2024 Protein [Mass/Vol] 7.1 g/dL Normal 6.4-8.9 [facility] Comment on above: Performed By: #### C MP, ADDONUAPLUS, CRP, CBC, ESR #### [facility] [address] [place] [address] [place] #### C3, C4, CH50 #### [facility] , Serum globulin measurement b y calculation (mass/volume)Ordered By: Sabrina Manriquez on 03-04-2024 Globulin (S) [Mass/Vol] 2.7 g/dL [facility] Comment on above: Performed By: #### C MP, ADDONUAPLUS, CRP, CBC, ESR #### [address] #### C3, C4, CH50 #### [facility] , Serum or plasma albumin/glob ulin mass ratioOrdered By: Sabrina Manriquez on 03-04-2024 Albumin/Globulin [Mass ratio] 1.6 {ratio} [facility] Comment on above: Performed By: #### C MP, ADDONUAPLUS, CRP, CBC, ESR #### [address] #### C3, C4, CH50 #### [facility] , Serum or plasma anion gap de terminationOrdered By: Sabrina Manriquez on 03-04-2024 Anion gap [Moles/Vol] 10.8 mmol/L Normal 6.0-15.0 [facility] Comment on above: Performed By: #### C MP, ADDONUAPLUS, CRP, CBC, ESR #### [place] [address] [place] #### C3, C4, CH50 #### [facility] , Sodium [Moles/volume] in Ser um or PlasmaOrdered By: Sabrina Manriquez on 03-04-2024 Sodium [Moles/Vol] 140 mmol/L Normal 136-145 [facility] Comment on above: Performed By: #### C MP, ADDONUAPLUS, CRP, CBC, ESR #### [address] #### C3, C4, CH50 #### [facility] , Specific gravity Test strip (U) [Rel density]Ordered By: Sabrina Manriquez on 03-04-2024 Specific gravity (U) [Rel density] 1.020 1.001-1.03 0 [facility] Urea nitrogen [Mass/volume] in Serum or PlasmaOrdered By: Sabrina Manriquez on 03-04-2024 Urea nitrogen [Mass/Vol] 18 mg/dL Normal 01-15 [facility] Comment on above: Performed By: #### C MP, ADDONUAPLUS, CRP, CBC, ESR #### [address] #### C3, C4, CH50 #### [facility] , Urine appearanceOrdered By: Sabrina Manriquez on 03-04-2024 Appearance (U) Clear Normal Clear [facility] Comment on above: Order Comment: Name Collection Type:: Clean-Voided Midstream Performed By: #### C MP, ADDONUAPLUS, CRP, CBC, ESR #### [address] #### C3, C4, CH50 #### [facility] , Urobilinogen Test strip (U) [Mass/Vol]Ordered By: Sabrina Manriquez on 03-04-2024 Urobilinogen (U) [Mass/Vol] Normal mg/dL Normal [facility] pH of Urine by Test stripOrd ered By: Sabrina Manriquez on 03-04-2024 pH (U) 5.5 [pH] Normal 5.0-9.0 [facility] Comment on above: Order Comment: Name Collection Type:: Clean-Voided Midstream Performed By: #### C MP, ADDONUAPLUS, CRP, CBC, ESR #### [place] [address] [place] #### C3, C4, CH50 #### [facility] , Alanine aminotransferase [En zymatic activity/volume] in Serum or PlasmaOrdered By: Sabrina Manriquez on 11-19-2023 ALT [Catalytic activity/Vol] 28 U/L Normal [facility] Comment on above: Performed By: #### C BC, CMP, CRP, ESR, ADDONUAPLUS #### [place] [address] [place] #### C4, C3, CH50 #### [facility] , Albumin [Mass/volume] in Ser um or Plasma by Bromocresol green (BCG) dye binding methoOrdered By: Sabrina Manriquez on 11-19-2023 Albumin BCG dye [Mass/Vol] 4.1 g/dL 3.5-5.7 [facility] Alkaline phosphatase [Enzyma tic activity/volume] in Serum or PlasmaOrdered By: Sabrina Manriquez on 11-19-2023 ALP [Catalytic activity/Vol] 70 U/L Normal 34-104 [facility] Comment on above: Performed By: #### C BC, CMP, CRP, ESR, ADDONUAPLUS #### [facility] [address] [place] [address] #### C4, C3, CH50 #### [facility] , Aspartate aminotransferase [ Enzymatic activity/volume] in Serum or PlasmaOrdered By: Sabrina Manriquez on 11-19-2023 AST [Catalytic activity/Vol] 29 U/L Normal 13-39 [facility] Comment on above: Performed By: #### C BC, CMP, CRP, ESR, ADDONUAPLUS #### [facility] [address] [place] [address] [place] #### C4, C3, CH50 #### [facility] , Automated basophil %Ordered By: Sabrina Manriquez on 11-19-2023 Basophils/100 WBC (Bld) 0.7 % Normal . [facility] Comment on above: Performed By: #### C BC, CMP, CRP, ESR, ADDONUAPLUS #### [facility] [address] [place] [address] [place] #### C4, C3, CH50 #### [facility] , Automated basophil countOrde red By: Sabrina Manriquez on 11-19-2023 Basophils (Bld) [#/Vol] 0.0 10*3/uL Normal 0.0-0.2 [facility] Comment on above: Performed By: #### C BC, CMP, CRP, ESR, ADDONUAPLUS #### [place] [address] [place] #### C4, C3, CH50 #### [facility] , Automated blood monocyte cou ntOrdered By: Sabrina Manriquez on 11-19-2023 Monocytes (Bld) [#/Vol] 0.5 10*3/uL Normal 0.0-0.8 [facility] Comment on above: Performed By: #### C BC, CMP, CRP, ESR, ADDONUAPLUS #### [place] [address] [place] #### C4, C3, CH50 #### [facility] , Automated eosinophil %Ordere d By: Sabrina Manriquez on 11-19-2023 Eosinophils/100 WBC (Bld) 1.6 % Normal . [facility] Comment on above: Performed By: #### C BC, CMP, CRP, ESR, ADDONUAPLUS #### [place] [address] [place] #### C4, C3, CH50 #### [facility] , Automated eosinophil countOr dered By: Sabrina Manriquez on 11-19-2023 Eosinophils (Bld) [#/Vol] 0.1 10*3/uL Normal 0.0-0.45 [facility] Comment on above: Performed By: #### C BC, CMP, CRP, ESR, ADDONUAPLUS #### [place] [address] [place] #### C4, C3, CH50 #### [facility] , Automated epithelial cells c ount in urine sediment (number/area)Ordered By: Sabrina Manriquez on 11-19-2023 Epithelial cells Auto (Urine sed) [#/Area] None seen [HPF] 0-2 [facility] Automated monocyte %Ordered By: Sabrina Manriquez on 11-19-2023 Monocytes/100 WBC (Bld) 8.0 % Normal . [facility] Comment on above: Performed By: #### C BC, CMP, CRP, ESR, ADDONUAPLUS #### [facility] [address] [place] [address] [place] #### C4, C3, CH50 #### [facility] , Automated neutrophil %Ordere d By: Sabrina Manriquez on 11-19-2023 Neutrophils/100 WBC (Bld) 70.9 % Normal . [facility] Comment on above: Performed By: #### C BC, CMP, CRP, ESR, ADDONUAPLUS #### [place] [address] [place] #### C4, C3, CH50 #### [facility] , Bacteria [Presence] in Urine by AutomatedOrdered By: Sabrina Manriquez on 11-19-2023 Bacteria Auto Ql (U) None seen [HPF] None Seen [facility] Bilirubin Test strip Ql (U)O rdered By: Sabrina Manriquez on 11-19-2023 Bilirubin Ql (U) Negative Negative [facility] Bilirubin.total [Mass/volume ] in Serum or PlasmaOrdered By: Sabrina Manriquez on 11-19-2023 Bilirubin [Mass/Vol] 0.5 mg/dL Normal 0.3-1.0 [facility] Comment on above: Performed By: #### C BC, CMP, CRP, ESR, ADDONUAPLUS #### [facility] [address] [place] [address] [place] #### C4, C3, CH50 #### [facility] , C reactive protein [Mass/vol ume] in Serum or PlasmaOrdered By: Sabrina Manriquez on 11-19-2023 CRP [Mass/Vol] < 0.5 mg/dL 0.0-0.5 [facility] C-Reactive Proteinon 024 CRP [Mass/Vol] mg/L Normal 0.0-0.5 [facility] Comment on above: Result Comment: PERF ORMED BY: [place] [address] PATHOLOGIST [employer] MANAGER KRISTIE BAKER M.D. Performed By: #### C BC, CMP, CRP, ESR, ADDONUAPLUS #### [place] [address] [place] #### C4, C3, CH50 #### [facility] , Calcium [Mass/volume] in Ser um or PlasmaOrdered By: Sabrina Manriquez on 11-19-2023 Calcium [Mass/Vol] 9.1 mg/dL Normal 8.6-10.3 [facility] Comment on above: Performed By: #### C BC, CMP, CRP, ESR, ADDONUAPLUS #### [address] #### C4, C3, CH50 #### [facility] , Carbon dioxide, total [Moles /volume] in Serum or PlasmaOrdered By: Sabrina Manriqeuz on 11-19-2023 CO2 [Moles/Vol] 30.2 mmol/L Normal 21.0-31.0 [facility] Comment on above: Performed By: #### C BC, CMP, CRP, ESR, ADDONUAPLUS #### [place] [address] [place] #### C4, C3, CH50 #### [facility] , Chloride [Moles/volume] in S lenny or PlasmaOrdered By: Sabrina Manriquez on 11-19-2023 Chloride [Moles/Vol] 105 mmol/L Normal 98-107 [facility] Comment on above: Performed By: #### C BC, CMP, CRP, ESR, ADDONUAPLUS #### [place] [address] [place] #### C4, C3, CH50 #### [facility] , Color of Urine by AutoOrdere d By: Sabrina Manriquez on 11-19-2023 Color (U) Yellow Normal Yellow [facility] Comment on above: Order Comment: Name Collection Type:: Clean-Voided Midstream Performed By: #### C BC, CMP, CRP, ESR, ADDONUAPLUS #### [address] #### C4, C3, CH50 #### [facility] , Complement C3on 11-19-2023 Complement C3 129 mg/dL Normal 82-167 [facility] Comment on above: Result Comment: Perf ormed at: [address] [id number] [employer]: Derek Toscano PhD, Phone: [phone] Performed By: #### C BC, CMP, CRP, ESR, ADDONUAPLUS #### [address] #### C4, C3, CH50 #### [facility] , Complement C4on 11-19-2023 Complement C4 20 mg/dL Normal 12-38 [facility] Comment on above: Result Comment: PERF ORMED BY: [place] [address] PATHOLOGIST [employer] MANAGER KRISTIE BAKER M.D. Performed By: #### C BC, CMP, CRP, ESR, ADDONUAPLUS #### [address] #### C4, C3, CH50 #### [facility] [...] determine out of range values. Performed at: [address] [id number] [employer]: Derek Toscano PhD, Phone: [phone] PERFORMED BY: [place] [address] PATHOLOGIST [employer] MANAGER KRISTIE BAKER M.D. Performed By: #### C BC, CMP, CRP, ESR, ADDONUAPLUS #### [place] [address] [place] #### C4, C3, CH50 #### [facility] , Complete Blood Count Auto Di ffon 11-19-2023 Mean Corpuscular HGB Conc 34.0 g/dL Normal 32.5-35.6 [facility] Comment on above: Performed By: #### C BC, CMP, CRP, ESR, ADDONUAPLUS #### [place] [address] [place] #### C4, C3, CH50 #### [facility] , NRBC% 0.1 /100{WBC} Normal 0-0.5 [facility] Comment on above: Performed By: #### C BC, CMP, CRP, ESR, ADDONUAPLUS #### [place] [address] [place] #### C4, C3, CH50 #### [facility] , Comprehensive Metabolic Pane tanika 11-19-2023 Albumin [Mass/Vol] 4.1 g/dL Normal 3.5-5.7 [facility] Comment on above: Performed By: #### C BC, CMP, CRP, ESR, ADDONUAPLUS #### [place] [address] [place] #### C4, C3, CH50 #### [facility] , GFR/1.73 sq M.predicted MDRD (S/P/Bld) [Vol rate/Area] mL/min/{1.73_m2} Normal [facility] Comment on above: Performed By: #### C BC, CMP, CRP, ESR, ADDONUAPLUS #### [address] [address] [place] #### C4, C3, CH50 #### [facility] , Creatinine [Mass/volume] in Serum or PlasmaOrdered By: Sabrina Manriquez on 11-19-2023 Creatinine [Mass/Vol] 0.97 mg/dL Normal 0.70-1.30 [facility] Comment on above: Performed By: #### C BC, CMP, CRP, ESR, ADDONUAPLUS #### [address] #### C4, C3, CH50 #### [facility] , Dipstick and Microscopicon 0 11-19-2023 Appearance (U) Clear Normal Clear [facility] Comment on above: Order Comment: Name Collection Type:: Clean-Voided Midstream Performed By: #### C BC, CMP, CRP, ESR, ADDONUAPLUS #### [address] #### C4, C3, CH50 #### [facility] , Bacteria,Urine None Seen Normal None Seen [facility] Comment on above: Order Comment: Name Collection Type:: Clean-Voided Midstream Performed By: #### C BC, CMP, CRP, ESR, ADDONUAPLUS #### [address] #### C4, C3, CH50 #### [facility] , Bilirubin,Urine Negative Normal Negative [facility] Comment on above: Order Comment: Name Collection Type:: Clean-Voided Midstream Performed By: #### C BC, CMP, CRP, ESR, ADDONUAPLUS #### [address] #### C4, C3, CH50 #### [facility] , Glucose Ql (U) Normal Normal Normal [facility] Comment on above: Order Comment: Name Collection Type:: Clean-Voided Midstream Performed By: #### C BC, CMP, CRP, ESR, ADDONUAPLUS #### [address] #### C4, C3, CH50 #### [facility] , Hyaline Casts,Urine None Seen Normal 0-8 [facility] Comment on above: Order Comment: Name Collection Type:: Clean-Voided Midstream Result Comment: PERF ORMED BY: [place] [address] PATHOLOGIST [employer] MANAGER KRISTIE BAKER M.D. Performed By: #### C BC, CMP, CRP, ESR, ADDONUAPLUS #### [address] #### C4, C3, CH50 #### [facility] , Ketones Ql (U) Negative Normal Negative [facility] Comment on above: Order Comment: Name Collection Type:: Clean-Voided Midstream Performed By: #### C BC, CMP, CRP, ESR, ADDONUAPLUS #### [address] #### C4, C3, CH50 #### [facility] , Leukocyte esterase Test strip Ql (U) Negative Normal Negative [facility] Comment on above: Order Comment: Name Collection Type:: Clean-Voided Midstream Performed By: #### C BC, CMP, CRP, ESR, ADDONUAPLUS #### [address] #### C4, C3, CH50 #### [facility] , Nitrite,Urine Negative Normal Negative [facility] Comment on above: Order Comment: Name Collection Type:: Clean-Voided Midstream Performed By: #### C BC, CMP, CRP, ESR, ADDONUAPLUS #### [address] #### C4, C3, CH50 #### [facility] , Occult Blood,Urine Negative Normal Negative [facility] Comment on above: Order Comment: Name Collection Type:: Clean-Voided Midstream Performed By: #### C BC, CMP, CRP, ESR, ADDONUAPLUS #### [place] [address] [place] #### C4, C3, CH50 #### [facility] , Protein,Urine Negative Normal Negative [facility] Comment on above: Order Comment: Name Collection Type:: Clean-Voided Midstream Performed By: #### C BC, CMP, CRP, ESR, ADDONUAPLUS #### [address] #### C4, C3, CH50 #### [facility] , RBC LM.HPF (Urine sed) [#/Area] 0 /[HPF] Normal 0-4 [facility] Comment on above: Order Comment: Name Collection Type:: Clean-Voided Midstream Performed By: #### C BC, CMP, CRP, ESR, ADDONUAPLUS #### [address] #### C4, C3, CH50 #### [facility] , Specificy [place],Urine 1.021 Normal 1.001-1.03 0 [facility] Comment on above: Order Comment: Name Collection Type:: Clean-Voided Midstream Performed By: #### C BC, CMP, CRP, ESR, ADDONUAPLUS #### [address] #### C4, C3, CH50 #### [facility] , Squamous Epithelial Cell,Urine None Seen Normal 0-2 [facility] Comment on above: Order Comment: Name Collection Type:: Clean-Voided Midstream Performed By: #### C BC, CMP, CRP, ESR, ADDONUAPLUS #### [address] #### C4, C3, CH50 #### [facility] , Urobilinogen,Urine Normal Normal Normal [facility] Comment on above: Order Comment: Name Collection Type:: Clean-Voided Midstream Performed By: #### C BC, CMP, CRP, ESR, ADDONUAPLUS #### [address] #### C4, C3, CH50 #### [facility] , WBC LM.HPF (Urine sed) [#/Area] 0 /[HPF] Normal 0-4 [facility] Comment on above: Order Comment: Name Collection Type:: Clean-Voided Midstream Performed By: #### C BC, CMP, CRP, ESR, ADDONUAPLUS #### [address] #### C4, C3, CH50 #### [facility] , Erythrocyte Sedimentation Ra natan 11-19-2023 ESR (Bld) [Velocity] 5 mm/h Normal 0-19 [facility] Comment on above: Result Comment: PERF ORMED BY: [place] [address] PATHOLOGIST [employer] KRISTIE BAKER M.D. Performed By: #### C BC, CMP, CRP, ESR, ADDONUAPLUS #### [address] #### C4, C3, CH50 #### [facility] , Erythrocyte distribution wid th [Ratio] by Automated countOrdered By: Sabrina Manriquez on 11-19-2023 Erythrocyte distribution width (RBC) [Ratio] 13.7 % Normal 12.0-14.8 [facility] Comment on above: Performed By: #### C BC, CMP, CRP, ESR, ADDONUAPLUS #### [address] #### C4, C3, CH50 #### [facility] , Erythrocyte sedimentation ra te by Photometric methodOrdered By: Sabrina Manriquez on 11-19-2023 ESR Photometric method (Bld) [Velocity] 5 mm/hr 0-19 [facility] Erythrocytes [#/area] in Uri ne sediment by Automated countOrdered By: Sabrina Manriquez on 11-19-2023 RBC Auto (Urine sed) [#/Area] 0-1 [HPF] 0-4 [facility] Erythrocytes [#/volume] in B lood by Automated countOrdered By: Sabrina Manriquez on 11-19-2023 RBC (Bld) [#/Vol] 4.64 10*6/uL Normal 3.90-5.60 [facility] Comment on above: Performed By: #### C BC, CMP, CRP, ESR, ADDONUAPLUS #### [facility] [address] [place] [address] [place] #### C4, C3, CH50 #### [facility] , Glucose [Mass/volume] in Ser um or PlasmaOrdered By: Sabrina Manriquez on 11-19-2023 Glucose [Mass/Vol] 115 mg/dL High 70-100 [facility] Comment on above: ADA recommended refe rence rangeRandom Glucose Reference Range is dependent on time and content of last meal. Glucose of more than 200 mg/dL in a nonstressed, ambulatory subject supports the diagnosis of Diabetes Mellitus. Result Comment: [place] Glucose Reference Range is dependent on time and content of last meal. Glucose of more than 200 mg/dL in a nonstressed, ambulatory subject supports the diagnosis of Diabetes Mellitus. ADA recommended reference range Performed By: #### C BC, CMP, CRP, ESR, ADDONUAPLUS #### [facility] [address] [place] [address] [place] #### C4, C3, CH50 #### [facility] , Hematocrit [Volume Fraction] of Blood by Automated countOrdered By: Sabrina Manriquez on 11-19-2023 Hematocrit (Bld) [Volume fraction] 44.2 % Normal 38.8-50.0 [facility] Comment on above: Performed By: #### C BC, CMP, CRP, ESR, ADDONUAPLUS #### [place] [address] [place] #### C4, C3, CH50 #### [facility] , Hemoglobin [Mass/volume] in BloodOrdered By: Sabrina Manriquez on 11-19-2023 Hemoglobin (Bld) [Mass/Vol] 15.0 g/dL Normal 13.0-17.0 [facility] Comment on above: Performed By: #### C BC, CMP, CRP, ESR, ADDONUAPLUS #### [place] [address] [place] #### C4, C3, CH50 #### [facility] , Ketones Auto test strip (U) [Mass/Vol]Ordered By: Sabrina Manriquez on 11-19-2023 Ketones (U) [Mass/Vol] Negative Negative [facility] - UrinalysisOrder ed By: Sabrina Manriquez on 11-19-2023 Hyaline casts LM Ql (Urine sed) None seen [LPF] 0-8 [facility] Leukocytes [#/area] in Urine sediment by Automated countOrdered By: Sabrina Manriquez on 11-19-2023 WBC Auto (Urine sed) [#/Area] 0-1 [HPF] 0-4 [facility] Leukocytes [#/volume] correc leah for nucleated erythrocytes in Blood by Automated counOrdered By: Sabrina Manriquez on 11-19-2023 WBC corrected for nucl RBC Auto (Bld) [#/Vol] 5.7 10*3/uL 4.1-10.5 [facility] Leukocytes [#/volume] in Blo od by Automated countOrdered By: Sabrina Manriquez on 11-19-2023 WBC (Bld) [#/Vol] 5.7 10*3/uL Normal 4.1-10.5 [facility] Comment on above: Performed By: #### C BC, CMP, CRP, ESR, ADDONUAPLUS #### [place] [address] [place] #### C4, C3, CH50 #### [facility] , Lymphocytes [#/volume] in Bl ood by Automated countOrdered By: Sabrina Manriquez on 11-19-2023 Lymphocytes (Bld) [#/Vol] 1.1 10*3/uL Normal 1.00-4.8 [facility] Comment on above: Performed By: #### C BC, CMP, CRP, ESR, ADDONUAPLUS #### [place] [address] [place] #### C4, C3, CH50 #### [facility] , Lymphocytes/100 leukocytes i n Blood by Automated countOrdered By: Sabrina Manriquez on 11-19-2023 Lymphocytes/100 WBC (Bld) 18.8 % Normal . [facility] Comment on above: Performed By: #### C BC, CMP, CRP, ESR, ADDONUAPLUS #### [address] #### C4, C3, CH50 #### [facility] , MCH [Entitic mass] by Automa leah countOrdered By: Sabrina Manriquez on 11-19-2023 MCH (RBC) [Entitic mass] 32.3 pg Normal 27.5-35.2 [facility] Comment on above: Performed By: #### C BC, CMP, CRP, ESR, ADDONUAPLUS #### [place] [address] [place] #### C4, C3, CH50 #### [facility] , MCHC Auto (RBC) [Mass/Vol]Or dered By: Sabrina Manriquez on 11-19-2023 MCHC (RBC) [Mass/Vol] 34.0 g/dL 32.5-35.6 [facility] MCV [Entitic volume] by Auto mated countOrdered By: Sabrina Manriquez on 11-19-2023 MCV (RBC) [Entitic vol] 95.2 fL Normal 83.5-101 [facility] Comment on above: Performed By: #### C BC, CMP, CRP, ESR, ADDONUAPLUS #### [facility] [address] [place] [address] [place] #### C4, C3, CH50 #### [facility] , Neutrophils [#/volume] in Bl ood by Automated countOrdered By: Sabrina Manriquez on 11-19-2023 Neutrophils (Bld) [#/Vol] 4.1 10*3/uL Normal 1.8-7.7 [facility] Comment on above: Performed By: #### C BC, CMP, CRP, ESR, ADDONUAPLUS #### [place] [address] [place] #### C4, C3, CH50 #### [facility] , Nitrite Test strip Ql (U)Ord ered By: Sabrina Manriquez on 11-19-2023 Nitrite Ql (U) Negative Negative [facility] No Panel InformationOrdered By: Sabrina Manriquez on 11-19-2023 Estimated GFR (CKD-EPI) > 60.0 mL/Min [facility] Creatinine Clearance (Chem N/A [facility] Nucleated erythrocytes [Pres ence] in Blood by Automated countOrdered By: Sabrina Manriquez on 11-19-2023 Nucleated RBC Auto Ql (Bld) 0.1 /100{WBC} 0-0.5 [facility] Platelet mean volume [Entiti c volume] in Blood by Automated countOrdered By: Sabrina Manriquez on 11-19-2023 Platelet mean volume (Bld) [Entitic vol] 9.3 fL Normal 6.6-10.1 [facility] Comment on above: Performed By: #### C BC, CMP, CRP, ESR, ADDONUAPLUS #### [facility] [address] [place] [address] [place] #### C4, C3, CH50 #### [facility] , Platelets [#/volume] in Bloo d by Automated countOrdered By: Sabrina Manriquez on 11-19-2023 Platelets (Bld) [#/Vol] 220 10*3/uL Normal 150-450 [facility] Comment on above: Performed By: #### C BC, CMP, CRP, ESR, ADDONUAPLUS #### [facility] [address] [place] [address] [place] #### C4, C3, CH50 #### [facility] , Potassium [Moles/volume] in Serum or PlasmaOrdered By: Sabrina Manriquez on 11-19-2023 Potassium [Moles/Vol] 4.4 mmol/L Normal 3.5-5.1 [facility] Comment on above: Performed By: #### C BC, CMP, CRP, ESR, ADDONUAPLUS #### [address] #### C4, C3, CH50 #### [facility] , Protein Auto test strip (U) [Mass/Vol]Ordered By: Sabrina Manriquez on 11-19-2023 Protein (U) [Mass/Vol] Negative Negative [facility] Protein [Mass/volume] in Ser um or PlasmaOrdered By: Sabrina Manriquez on 11-19-2023 Protein [Mass/Vol] 6.7 g/dL Normal 6.4-8.9 [facility] Comment on above: Performed By: #### C BC, CMP, CRP, ESR, ADDONUAPLUS #### [facility] [address] [place] [address] [place] #### C4, C3, CH50 #### [facility] , Serum globulin measurement b y calculation (mass/volume)Ordered By: Sabrina Manriquez on 11-19-2023 Globulin (S) [Mass/Vol] 2.6 g/dL Normal [facility] Comment on above: Performed By: #### C BC, CMP, CRP, ESR, ADDONUAPLUS #### [place] [address] [place] #### C4, C3, CH50 #### [facility] , Serum or plasma albumin/glob ulin mass ratioOrdered By: Sabrina Manriquez on 11-19-2023 Albumin/Globulin [Mass ratio] 1.6 {ratio} Normal [facility] Comment on above: Performed By: #### C BC, CMP, CRP, ESR, ADDONUAPLUS #### [place] [address] [place] #### C4, C3, CH50 #### [facility] , Serum or plasma anion gap de terminationOrdered By: Sabrina Manriquez on 11-19-2023 Anion gap [Moles/Vol] 9.2 mmol/L Normal 6.0-15.0 [facility] Comment on above: Performed By: #### C BC, CMP, CRP, ESR, ADDONUAPLUS #### [place] [address] [place] #### C4, C3, CH50 #### [facility] , Sodium [Moles/volume] in Ser um or PlasmaOrdered By: Sabrina Manriquez on 11-19-2023 Sodium [Moles/Vol] 140 mmol/L Normal 136-145 [facility] Comment on above: Performed By: #### C BC, CMP, CRP, ESR, ADDONUAPLUS #### [place] [address] [place] #### C4, C3, CH50 #### [facility] , Specific gravity Auto test s trip (U) [Rel density]Ordered By: Sabrina Manriquez on 11-19-2023 Specific gravity (U) [Rel density] 1.021 1.001-1.03 0 [facility] Urea nitrogen [Mass/volume] in Serum or PlasmaOrdered By: Sabrina Manriquez on 11-19-2023 Urea nitrogen [Mass/Vol] 17 mg/dL Normal 7-25 [facility] Comment on above: Performed By: #### C BC, CMP, CRP, ESR, ADDONUAPLUS #### [place] [address] [place] #### C4, C3, CH50 #### [facility] , Urine clarity by refractomet ry automatedOrdered By: Sabrina Manriquez on 11-19-2023 Clarity Refractometry automated (U) Clear Clear [facility] Urine glucose measurement by automated test strip (mass/volume)Ordered By: Sabrina Manriquez on 11-19-2023 Glucose Auto test strip (U) [Mass/Vol] Normal mg/dL Normal [facility] Urine hemoglobin detection b y automated test stripOrdered By: Sabrina Manriquez on 11-19-2023 Hemoglobin Auto test strip Ql (U) Negative Negative [facility] Urine leukocyte esterase det ection by automated test stripOrdered By: Sabrina Manriquez on 11-19-2023 Leukocyte esterase Auto test strip Ql (U) Negative Negative [facility] Urine pH measurement by auto mated test stripOrdered By: Sabrina Manriquez on 11-19-2023 pH (U) 5.5 [pH] Normal 5.0-9.0 [facility] Comment on above: Order Comment: Name Collection Type:: Clean-Voided Midstream Performed By: #### C BC, CMP, CRP, ESR, ADDONUAPLUS #### [address] #### C4, C3, CH50 #### [facility] , Urobilinogen Auto test strip (U) [Mass/Vol]Ordered By: Sabrina Manriquez on 11-19-2023 Urobilinogen (U) [Mass/Vol] Normal mg/dL Normal [facility] Alanine aminotransferase [En zymatic activity/volume] in Serum or PlasmaOrdered By: Sabrina Manriquez on 07-18-2023 ALT [Catalytic activity/Vol] 32 U/L 752 [facility] Albumin [Mass/volume] in Ser um or Plasma by Bromocresol green (BCG) dye binding methoOrdered By: Sabrina Manriquez on 07-18-2023 Albumin BCG dye [Mass/Vol] 4.3 g/dL 3.5-5.7 [facility] Alkaline phosphatase [Enzyma tic activity/volume] in Serum or PlasmaOrdered By: Sabrina Manriquez on 07-18-2023 ALP [Catalytic activity/Vol] 78 U/L 34-104 [facility] Aspartate aminotransferase [ Enzymatic activity/volume] in Serum or PlasmaOrdered By: Sabrina Manriquez on 07-18-2023 AST [Catalytic activity/Vol] 28 U/L 13-39 [facility] Automated erythrocytes count in urine sediment (number/area)Ordered By: Sabrina Manriquez on 07-18-2023 RBC Auto (Urine sed) [#/Area] 0-1 [HPF] 0-4 [facility] Automated leukocytes count i n urine sediment (number/area)Ordered By: Sabrina Manriquez on 07-18-2023 WBC Auto (Urine sed) [#/Area] 0-1 [HPF] 0-4 [facility] Basophils Auto (Bld) [#/Vol] Ordered By: Sabrina Manriquez on 07-18-2023 Basophils (Bld) [#/Vol] 0.1 10*3/uL 0.0-0.2 [facility] Basophils/100 WBC Auto (Bld) Ordered By: Sabrina Manriquez on 07-18-2023 Basophils/100 WBC (Bld) 0.8 % . [facility] Bilirubin Test strip Ql (U)O rdered By: Sabrina Manriquez on 07-18-2023 Bilirubin Ql (U) Negative Negative [facility] Bilirubin.total [Mass/volume ] in Serum or PlasmaOrdered By: Sabrina Manriquez on 07-18-2023 Bilirubin [Mass/Vol] 0.5 mg/dL 0.3-1.0 [facility] C reactive protein [Mass/vol ume] in Serum or PlasmaOrdered By: Sabrina Manriquez on 07-18-2023 CRP [Mass/Vol] < 0.5 mg/dL 0.0-0.5 [facility] Calcium [Mass/volume] in Ser um or PlasmaOrdered By: Sabrina Manriquez on 07-18-2023 Calcium [Mass/Vol] 9.2 mg/dL 8.6-10.3 [facility] Carbon dioxide, total [Moles /volume] in Serum or PlasmaOrdered By: Sabrina Manriquez on 07-18-2023 CO2 [Moles/Vol] 30.1 mmol/L 21.0-31.0 [facility] Chloride [Moles/volume] in S lenny or PlasmaOrdered By: Sabrina Manriquez on 07-18-2023 Chloride [Moles/Vol] 105 mmol/L 98-107 [facility] Color Auto (U)Ordered By: Emily Montiel on 07-18-2023 Color (U) Yellow Yellow [facility] Creatinine [Mass/volume] in Serum or PlasmaOrdered By: Sabrina Manriquez on 07-18-2023 Creatinine [Mass/Vol] 0.93 mg/dL 0.70-1.30 [facility] Eosinophils Auto (Bld) [#/Vo l]Ordered By: Sabrina Manriquez on 07-18-2023 Eosinophils (Bld) [#/Vol] 0.0 10*3/uL 0.0-0.45 [facility] Eosinophils/100 WBC Auto (Bl d)Ordered By: Sabrina Manriquez on 07-18-2023 Eosinophils/100 WBC (Bld) 0.7 % . [facility] Erythrocyte distribution wid th Auto (RBC) [Ratio]Ordered By: Sabrina Manriquez on 07-18-2023 Erythrocyte distribution width (RBC) [Ratio] 13.9 % 12.0-14.8 [facility] Erythrocyte sedimentation ra te by Photometric methodOrdered By: Sabrina Manriquez on 07-18-2023 ESR Photometric method (Bld) [Velocity] 7 mm/hr 0-19 [facility] Globulin Calc (S) [Mass/Vol] Ordered By: Sabrina Manriquez on 07-18-2023 Globulin (S) [Mass/Vol] 2.5 g/dL [facility] Glucose [Mass/volume] in Ser um or PlasmaOrdered By: Sabrina Manriquez on 07-18-2023 Glucose [Mass/Vol] 89 mg/dL 70-100 [facility] Comment on above: ADA recommended refe rence rangeRandom Glucose Reference Range is dependent on time and content of last meal. Glucose of more than 200 mg/dL in a nonstressed, ambulatory subject supports the diagnosis of Diabetes Mellitus. Hematocrit Auto (Bld) [Volum e fraction]Ordered By: Sabrina Manriquez on 07-18-2023 Hematocrit (Bld) [Volume fraction] 44.3 % 38.8-50.0 [facility] Hemoglobin [Mass/volume] in BloodOrdered By: Sabrina Manriquez on 07-18-2023 Hemoglobin (Bld) [Mass/Vol] 15.2 g/dL 13.0-17.0 [facility] Ketones Auto test strip (U) [Mass/Vol]Ordered By: Sabrina Manriquez on 07-18-2023 Ketones (U) [Mass/Vol] Trace Negative [facility] - UrinalysisOrder ed By: Sabrina Manriquez on 07-18-2023 Hyaline casts LM Ql (Urine sed) None seen [LPF] 0-8 [facility] Leukocytes [#/volume] correc leah for nucleated erythrocytes in Blood by Automated counOrdered By: Sabrina Manriquez on 07-18-2023 WBC corrected for nucl RBC Auto (Bld) [#/Vol] 6.3 10*3/uL 4.1-10.5 [facility] Lymphocytes Auto (Bld) [#/Vo l]Ordered By: Sabrina Manriquez on 07-18-2023 Lymphocytes (Bld) [#/Vol] 0.9 10*3/uL 1.00-4.8 [facility] Lymphocytes/100 WBC Auto (Bl d)Ordered By: Sabrina Manriquez on 07-18-2023 Lymphocytes/100 WBC (Bld) 15.1 % . [facility] MCH Auto (RBC) [Entitic mass ]Ordered By: Sabrina Manriquez on 07-18-2023 MCH (RBC) [Entitic mass] 32.3 pg 27.5-35.2 [facility] MCHC Auto (RBC) [Mass/Vol]Or dered By: Sabrina Manriquez on 07-18-2023 MCHC (RBC) [Mass/Vol] 34.2 g/dL 32.5-35.6 [facility] MCV Auto (RBC) [Entitic vol] Ordered By: Sabrina Manriquez on 07-18-2023 MCV (RBC) [Entitic vol] 94.4 fL 83.5-101 [facility] Monocytes Auto (Bld) [#/Vol] Ordered By: Sabrina Manriquez on 07-18-2023 Monocytes (Bld) [#/Vol] 0.6 10*3/uL 0.0-0.8 [facility] Monocytes/100 WBC Auto (Bld) Ordered By: Sabrina Manriquez on 07-18-2023 Monocytes/100 WBC (Bld) 8.9 % . [facility] Neutrophils Auto (Bld) [#/Vo l]Ordered By: Sabrina Manriquez on 07-18-2023 Neutrophils (Bld) [#/Vol] 4.7 10*3/uL 1.8-7.7 [facility] Neutrophils/100 WBC Auto (Bl d)Ordered By: Sabrina Manriquez on 07-18-2023 Neutrophils/100 WBC (Bld) 74.5 % . [facility] Nitrite Test strip Ql (U)Ord ered By: Sabrina Manriquez on 07-18-2023 Nitrite Ql (U) Negative Negative [facility] No Panel InformationOrdered By: Sabrina Manriquez on 07-18-2023 Estimated GFR (CKD-EPI) > 60.0 mL/Min [facility] Creatinine Clearance (Chem N/A [facility] Nucleated erythrocytes [Pres ence] in Blood by Automated countOrdered By: Sabrina Manriquez on 07-18-2023 Nucleated RBC Auto Ql (Bld) 0.1 /100{WBC} 0-0.5 [facility] Platelet mean volume Auto (B ld) [Entitic vol]Ordered By: Sabrina Manriquez on 07-18-2023 Platelet mean volume (Bld) [Entitic vol] 8.8 fL 6.6-10.1 [facility] Platelets Auto (Bld) [#/Vol] Ordered By: Sabrina Manriquez on 01-25-2024 Platelets (Bld) [#/Vol] 235 10*3/uL 150-450 [facility] Potassium [Moles/volume] in Serum or PlasmaOrdered By: Sabrina Manriquez on 07-18-2023 Potassium [Moles/Vol] 4.1 mmol/L 3.5-5.1 [facility] Protein Auto test strip (U) [Mass/Vol]Ordered By: Sabrina Manriquez on 07-18-2023 Protein (U) [Mass/Vol] Negative Negative [facility] Protein [Mass/volume] in Ser um or PlasmaOrdered By: Sabrina Manriquez on 07-18-2023 Protein [Mass/Vol] 6.8 g/dL 6.4-8.9 [facility] RBC Auto (Bld) [#/Vol]Ordere d By: Sabrina Manriquez on 07-18-2023 RBC (Bld) [#/Vol] 4.69 10*6/uL 3.90-5.60 [facility] Serum or plasma albumin/glob ulin mass ratioOrdered By: Sabrina Manriquez on 07-18-2023 Albumin/Globulin [Mass ratio] 1.7 {ratio} [facility] Serum or plasma anion gap de terminationOrdered By: Sabrina Manriquez on 07-18-2023 Anion gap [Moles/Vol] 9.0 mmol/L 6.0-15.0 [facility] Sodium [Moles/volume] in Ser um or PlasmaOrdered By: Sabrina Manriquez on 07-18-2023 Sodium [Moles/Vol] 140 mmol/L 136-145 [facility] Specific gravity Auto test s trip (U) [Rel density]Ordered By: Sabrina Manriquez on 07-18-2023 Specific gravity (U) [Rel density] 1.023 1.001-1.03 0 [facility] Squamous epithelial cells de tection in urine sediment by light microscopyOrdered By: Sabrina Manriquez on 07-18-2023 Epithelial cells.squamous LM Ql (Urine sed) None seen [HPF] 0-2 [facility] Urea nitrogen [Mass/volume] in Serum or PlasmaOrdered By: Sabrina Manriquez on 07-18-2023 Urea nitrogen [Mass/Vol] 22 mg/dL 01-15 [facility] Urine bacteria detection by automated methodOrdered By: Sabrina Manriquez on 07-18-2023 Bacteria Auto Ql (U) None seen None Seen [facility] Urine clarity by refractomet ry automatedOrdered By: Sabrina Manriquez on 07-18-2023 Clarity Refractometry automated (U) Clear Clear [facility] Urine glucose measurement by automated test strip (mass/volume)Ordered By: Sabrina Manriquez on 07-18-2023 Glucose Auto test strip (U) [Mass/Vol] Normal mg/dL Normal [facility] Urine hemoglobin detection b y automated test stripOrdered By: Sabrina Manriquez on 07-18-2023 Hemoglobin Auto test strip Ql (U) Negative Negative [facility] Urine leukocyte esterase det ection by automated test stripOrdered By: Sabrina Manriquez on 07-18-2023 Leukocyte esterase Auto test strip Ql (U) Negative Negative [facility] Urobilinogen Auto test strip (U) [Mass/Vol]Ordered By: Sabrina Manriquez on 07-18-2023 Urobilinogen (U) [Mass/Vol] Normal mg/dL Normal [facility] WBC Auto (Bld) [#/Vol]Ordere d By: Sabrina Manriquez on 07-18-2023 WBC (Bld) [#/Vol] 6.3 10*3/uL 4.1-10.5 [facility] pH Auto test strip (U)Ordere d By: Sabrina Manirquez on 07-18-2023 pH (U) 5.5 [pH] 5.0-9.0 [facility] CNOVon 03-12-2023 CNOV Office Visit (ORFTMN ) -------- JAY CARR ([id number]) 1960 M Date Time Provider Department 03/12/23 [...] prn X-Ray's at next visit: No PCP: Dania Armstrong MD [address] [facility] [id number] FELLOW / RESIDENT: No fellow or resident assisted in th (more content not included)... Normal [facility] Alanine aminotransferase [En zymatic activity/volume] in Serum or PlasmaOrdered By: Hudson De Leon on 02-19-2023 ALT [Catalytic activity/Vol] 24 U/L 7-52 [facility] Albumin [Mass/volume] in Ser um or Plasma by Bromocresol green (BCG) dye binding methoOrdered By: Hudson De Leon on 02-19-2023 Albumin BCG dye [Mass/Vol] 4.1 g/dL 3.5-5.7 [facility] Alkaline phosphatase [Enzyma tic activity/volume] in Serum or PlasmaOrdered By: Hudson De Leon on 02-19-2023 ALP [Catalytic activity/Vol] 90 U/L 34-104 [facility] Aspartate aminotransferase [ Enzymatic activity/volume] in Serum or PlasmaOrdered By: Hudson De Leon on 02-19-2023 AST [Catalytic activity/Vol] 27 U/L 13-39 [facility] Automated erythrocytes count in urine sediment (number/area)Ordered By: Hudson De Leon on 02-19-2023 RBC Auto (Urine sed) [#/Area] 0-1 [HPF] 0-4 [facility] Automated leukocytes count i n urine sediment (number/area)Ordered By: Hudson De Leon on 02-19-2023 WBC Auto (Urine sed) [#/Area] None seen [HPF] 0-4 [facility] Basophils Auto (Bld) [#/Vol] Ordered By: Hudson De Leon on 02-19-2023 Basophils (Bld) [#/Vol] 0.0 10*3/uL 0.0-0.2 [facility] Basophils/100 WBC Auto (Bld) Ordered By: Hudson De Leon on 02-19-2023 Basophils/100 WBC (Bld) 0.7 % . [facility] Bilirubin Test strip Ql (U)O rdered By: Hudson De Leon on 02-19-2023 Bilirubin Ql (U) Negative Negative [facility] Bilirubin.total [Mass/volume ] in Serum or PlasmaOrdered By: Hudson De Leon on 02-19-2023 Bilirubin [Mass/Vol] 0.6 mg/dL 0.3-1.0 [facility] Calcium [Mass/volume] in Ser um or PlasmaOrdered By: Hudson De Leon on 02-19-2023 Calcium [Mass/Vol] 9.0 mg/dL 8.6-10.3 [facility] Carbon dioxide, total [Moles /volume] in Serum or PlasmaOrdered By: Hudson De Leon on 02-19-2023 CO2 [Moles/Vol] 29.6 mmol/L 21.0-31.0 [facility] Chloride [Moles/volume] in S lenny or PlasmaOrdered By: Hudson De Leon on 02-19-2023 Chloride [Moles/Vol] 105 mmol/L 98-107 [facility] Color Auto (U)Ordered By: Maykel De Leon on 02-19-2023 Color (U) Yellow Yellow [facility] Creatinine [Mass/volume] in Serum or PlasmaOrdered By: Hudson De Leon on 02-19-2023 Creatinine [Mass/Vol] 0.95 mg/dL 0.70-1.30 [facility] Eosinophils Auto (Bld) [#/Vo l]Ordered By: Hudson De Leon on 02-19-2023 Eosinophils (Bld) [#/Vol] 0.0 10*3/uL 0.0-0.45 [facility] Eosinophils/100 WBC Auto (Bl d)Ordered By: Hudson De Leon on 02-19-2023 Eosinophils/100 WBC (Bld) 1.0 % . [facility] Erythrocyte distribution wid th Auto (RBC) [Ratio]Ordered By: Hudson De Leon on 02-19-2023 Erythrocyte distribution width (RBC) [Ratio] 13.6 % 12.0-14.8 [facility] Erythrocyte sedimentation ra te by Photometric methodOrdered By: Hudson De Leon on 02-19-2023 ESR Photometric method (Bld) [Velocity] 7 mm/hr 0-19 [facility] Globulin Calc (S) [Mass/Vol] Ordered By: Hudson De Leon on 02-19-2023 Globulin (S) [Mass/Vol] 2.6 g/dL [facility] Glucose [Mass/volume] in Ser um or PlasmaOrdered By: Hudson De Leon on 02-19-2023 Glucose [Mass/Vol] 108 mg/dL 70-100 [facility] Comment on above: ADA recommended refe rence rangeRandom Glucose Reference Range is dependent on time and content of last meal. Glucose of more than 200 mg/dL in a nonstressed, ambulatory subject supports the diagnosis of Diabetes Mellitus. Hematocrit Auto (Bld) [Volum e fraction]Ordered By: Hudson De Leon on 02-19-2023 Hematocrit (Bld) [Volume fraction] 42.3 % 38.8-50.0 [facility] Hemoglobin [Mass/volume] in BloodOrdered By: Hudson De Leon on 02-19-2023 Hemoglobin (Bld) [Mass/Vol] 14.3 g/dL 13.0-17.0 [facility] Ketones Auto test strip (U) [Mass/Vol]Ordered By: Hudson De Leon on 02-19-2023 Ketones (U) [Mass/Vol] Negative Negative [facility] - UrinalysisOrder ed By: Hudson De Leon on 02-19-2023 Hyaline casts LM Ql (Urine sed) None seen [LPF] 0-8 [facility] Leukocytes [#/volume] correc leah for nucleated erythrocytes in Blood by Automated counOrdered By: Hudson De Leon on 02-19-2023 WBC corrected for nucl RBC Auto (Bld) [#/Vol] 4.7 10*3/uL 4.1-10.5 [facility] Lymphocytes Auto (Bld) [#/Vo l]Ordered By: Hudson De Leon on 02-19-2023 Lymphocytes (Bld) [#/Vol] 0.9 10*3/uL 1.00-4.8 [facility] Lymphocytes/100 WBC Auto (Bl d)Ordered By: Hudson De Leon on 02-19-2023 Lymphocytes/100 WBC (Bld) 18.5 % . [facility] MCH Auto (RBC) [Entitic mass ]Ordered By: Hudson De Leon on 02-19-2023 MCH (RBC) [Entitic mass] 31.5 pg 27.5-35.2 [facility] MCHC Auto (RBC) [Mass/Vol]Or dered By: Hudson De Leon on 02-19-2023 MCHC (RBC) [Mass/Vol] 33.9 g/dL 32.5-35.6 [facility] MCV Auto (RBC) [Entitic vol] Ordered By: Hudson De Leon on 02-19-2023 MCV (RBC) [Entitic vol] 93.0 fL 83.5-101 [facility] Monocytes Auto (Bld) [#/Vol] Ordered By: Hudson De Leon on 02-19-2023 Monocytes (Bld) [#/Vol] 0.4 10*3/uL 0.0-0.8 [facility] Monocytes/100 WBC Auto (Bld) Ordered By: Hudson De Leon on 02-19-2023 Monocytes/100 WBC (Bld) 8.1 % . [facility] Neutrophils Auto (Bld) [#/Vo l]Ordered By: Hudson De Leon on 02-19-2023 Neutrophils (Bld) [#/Vol] 3.4 10*3/uL 1.8-7.7 [facility] Neutrophils/100 WBC Auto (Bl d)Ordered By: Hudson De Leon on 02-19-2023 Neutrophils/100 WBC (Bld) 71.7 % . [facility] Nitrite Test strip Ql (U)Ord ered By: Hudson De Leon on 02-19-2023 Nitrite Ql (U) Negative Negative [facility] No Panel InformationOrdered By: Hudson De Leon on 02-19-2023 Estimated GFR (CKD-EPI) > 60.0 mL/Min [facility] Creatinine Clearance (Chem N/A [facility] Nucleated erythrocytes [Pres ence] in Blood by Automated countOrdered By: Hudson De Leon on 02-19-2023 Nucleated RBC Auto Ql (Bld) 0.1 /100{WBC} 0-0.5 [facility] Platelet mean volume Auto (B ld) [Entitic vol]Ordered By: Hudson De Leon on 02-19-2023 Platelet mean volume (Bld) [Entitic vol] 9.0 fL 6.6-10.1 [facility] Platelets Auto (Bld) [#/Vol] Ordered By: Hudson De Leon on 02-19-2023 Platelets (Bld) [#/Vol] 198 10*3/uL 150-450 [facility] Potassium [Moles/volume] in Serum or PlasmaOrdered By: Hudson De Leon on 02-19-2023 Potassium [Moles/Vol] 4.0 mmol/L 3.5-5.1 [facility] Protein Auto test strip (U) [Mass/Vol]Ordered By: Hudson De Leon on 02-19-2023 Protein (U) [Mass/Vol] Negative Negative [facility] Protein [Mass/volume] in Ser um or PlasmaOrdered By: Hudson De Leon on 02-19-2023 Protein [Mass/Vol] 6.7 g/dL 6.4-8.9 [facility] RBC Auto (Bld) [#/Vol]Ordere d By: Hudson De Leon on 02-19-2023 RBC (Bld) [#/Vol] 4.55 10*6/uL 3.90-5.60 [facility] Serum or plasma albumin/glob ulin mass ratioOrdered By: Hudson De Leon on 02-19-2023 Albumin/Globulin [Mass ratio] 1.6 {ratio} [facility] Serum or plasma anion gap de terminationOrdered By: Hudson De Leon on 02-19-2023 Anion gap [Moles/Vol] 9.4 mmol/L 6.0-15.0 [facility] Sodium [Moles/volume] in Ser um or PlasmaOrdered By: Hudson De Leon on 02-19-2023 Sodium [Moles/Vol] 140 mmol/L 136-145 [facility] Specific gravity Auto test s trip (U) [Rel density]Ordered By: Hudson De Leon on 02-19-2023 Specific gravity (U) [Rel density] 1.018 1.001-1.03 0 [facility] Squamous epithelial cells de tection in urine sediment by light microscopyOrdered By: Hudson De Leon on 02-19-2023 Epithelial cells.squamous LM Ql (Urine sed) None seen [HPF] 0-2 [facility] Urea nitrogen [Mass/volume] in Serum or PlasmaOrdered By: Hudson De Leon on 02-19-2023 Urea nitrogen [Mass/Vol] 16 mg/dL 7-25 [facility] Urine bacteria detection by automated methodOrdered By: Hudson De Leon on 02-19-2023 Bacteria Auto Ql (U) None seen None Seen [facility] Urine clarity by refractomet ry automatedOrdered By: Hudson De Leon on 02-19-2023 Clarity Refractometry automated (U) Clear Clear [facility] Urine glucose measurement by automated test strip (mass/volume)Ordered By: Hudson De Leon on 02-19-2023 Glucose Auto test strip (U) [Mass/Vol] Normal mg/dL Normal [facility] Urine hemoglobin detection b y automated test stripOrdered By: Hudson De Leon on 02-19-2023 Hemoglobin Auto test strip Ql (U) Negative Negative [facility] Urine leukocyte esterase det ection by automated test stripOrdered By: Hudson De Leon on 02-19-2023 Leukocyte esterase Auto test strip Ql (U) Negative Negative [facility] Urobilinogen Auto test strip (U) [Mass/Vol]Ordered By: uHdson De Leon on 02-19-2023 Urobilinogen (U) [Mass/Vol] Normal mg/dL Normal [facility] WBC Auto (Bld) [#/Vol]Ordere d By: Hudson De Leon on 02-19-2023 WBC (Bld) [#/Vol] 4.7 10*3/uL 4.1-10.5 [facility] pH Auto test strip (U)Ordere d By: Hudson De Leon on 02-19-2023 pH (U) 5.5 [pH] 5.0-9.0 [facility] Alanine aminotransferase [En zymatic activity/volume] in Serum or PlasmaOrdered By: Hudson De Leon on 10-15-2022 ALT [Catalytic activity/Vol] 19 U/L [facility] Albumin [Mass/volume] in Ser um or Plasma by Bromocresol green (BCG) dye binding methoOrdered By: Hudson De Leon on 10-15-2022 Albumin BCG dye [Mass/Vol] 4.1 g/dL 3.5-5.7 [facility] Alkaline phosphatase [Enzyma tic activity/volume] in Serum or PlasmaOrdered By: Hudson De Leon on 10-15-2022 ALP [Catalytic activity/Vol] 89 U/L 34-104 [facility] Aspartate aminotransferase [ Enzymatic activity/volume] in Serum or PlasmaOrdered By: Hudson De Leon on 10-15-2022 AST [Catalytic activity/Vol] 19 U/L 13-39 [facility] Automated erythrocytes count in urine sediment (number/area)Ordered By: Hudson De Leon on 10-15-2022 RBC Auto (Urine sed) [#/Area] 1-2 [HPF] 0-4 [facility] Automated leukocytes count i n urine sediment (number/area)Ordered By: Hudson De Leon on 10-15-2022 WBC Auto (Urine sed) [#/Area] None seen [HPF] 0-4 [facility] Basophils Auto (Bld) [#/Vol] Ordered By: Hudson De Leon on 10-15-2022 Basophils (Bld) [#/Vol] 0.0 10*3/uL 0.0-0.2 [facility] Basophils/100 WBC Auto (Bld) Ordered By: Hudson De Leon on 10-15-2022 Basophils/100 WBC (Bld) 0.5 % . [facility] Bilirubin Test strip Ql (U)O rdered By: Hudson De Leon on 10-15-2022 Bilirubin Ql (U) Negative Negative [facility] Bilirubin.total [Mass/volume ] in Serum or PlasmaOrdered By: Hudson De Leon on 10-15-2022 Bilirubin [Mass/Vol] 0.6 mg/dL 0.3-1.0 [facility] Calcium [Mass/volume] in Ser um or PlasmaOrdered By: Hudson eD Leon on 10-15-2022 Calcium [Mass/Vol] 8.5 mg/dL 8.6-10.3 [facility] Carbon dioxide, total [Moles /volume] in Serum or PlasmaOrdered By: Hudson De Leon on 10-15-2022 CO2 [Moles/Vol] 27.8 mmol/L 21.0-31.0 [facility] Chloride [Moles/volume] in S lenny or PlasmaOrdered By: Hudson De Leon on 10-15-2022 Chloride [Moles/Vol] 106 mmol/L 98-107 [facility] Color Auto (U)Ordered By: Maykel shaylee Haley on 10-15-2022 Color (U) Yellow Yellow [facility] Creatinine [Mass/volume] in Serum or PlasmaOrdered By: Hudson De Leon on 10-15-2022 Creatinine [Mass/Vol] 1.09 mg/dL 0.70-1.30 [facility] Eosinophils Auto (Bld) [#/Vo l]Ordered By: Hduson De Leon on 10-15-2022 Eosinophils (Bld) [#/Vol] 0.1 10*3/uL 0.0-0.45 [facility] Eosinophils/100 WBC Auto (Bl d)Ordered By: Hudson De Leon on 10-15-2022 Eosinophils/100 WBC (Bld) 1.6 % . [facility] Erythrocyte distribution wid th Auto (RBC) [Ratio]Ordered By: Hudson De Leon on 10-15-2022 Erythrocyte distribution width (RBC) [Ratio] 14.2 % 12.0-14.8 [facility] Erythrocyte sedimentation ra te by Photometric methodOrdered By: Hudson De Leon on 10-15-2022 ESR Photometric method (Bld) [Velocity] 6 mm/hr 0-19 [facility] Globulin Calc (S) [Mass/Vol] Ordered By: Hudson De Leon on 10-15-2022 Globulin (S) [Mass/Vol] 2.8 g/dL [facility] Glucose [Mass/volume] in Ser um or PlasmaOrdered By: Hudson De Leon on 10-15-2022 Glucose [Mass/Vol] 139 mg/dL 70-100 [facility] Comment on above: ADA recommended refe rence rangeRandom Glucose Reference Range is dependent on time and content of last meal. Glucose of more than 200 mg/dL in a nonstressed, ambulatory subject supports the diagnosis of Diabetes Mellitus. Hematocrit Auto (Bld) [Volum e fraction]Ordered By: Hduson De Leon on 10-15-2022 Hematocrit (Bld) [Volume fraction] 42.6 % 38.8-50.0 [facility] Hemoglobin [Mass/volume] in BloodOrdered By: Hudson De Leon on 10-15-2022 Hemoglobin (Bld) [Mass/Vol] 14.4 g/dL 13.0-17.0 [facility] Ketones Auto test strip (U) [Mass/Vol]Ordered By: Hudson De Leon on 10-15-2022 Ketones (U) [Mass/Vol] Negative Negative [facility] Laboratory - UrinalysisOrder ed By: Hudson De Leon on 10-15-2022 Hyaline casts LM Ql (Urine sed) None seen [LPF] 0-8 [facility] Leukocytes [#/volume] correc leah for nucleated erythrocytes in Blood by Automated counOrdered By: Hudson De Leon on 10-15-2022 WBC corrected for nucl RBC Auto (Bld) [#/Vol] 4.9 10*3/uL 4.1-10.5 [facility] Lymphocytes Auto (Bld) [#/Vo l]Ordered By: Hudson De Leon on 10-15-2022 Lymphocytes (Bld) [#/Vol] 1.0 10*3/uL 1.00-4.8 [facility] Lymphocytes/100 WBC Auto (Bl d)Ordered By: Hudson De Leon on 10-15-2022 Lymphocytes/100 WBC (Bld) 20.0 % . [facility] MCH Auto (RBC) [Entitic mass ]Ordered By: Hudson De Leon on 10-15-2022 MCH (RBC) [Entitic mass] 31.2 pg 27.5-35.2 [facility] MCHC Auto (RBC) [Mass/Vol]Or dered By: Hudson De Leon on 10-15-2022 MCHC (RBC) [Mass/Vol] 33.7 g/dL 32.5-35.6 [facility] MCV Auto (RBC) [Entitic vol] Ordered By: Hudson De Leon on 10-15-2022 MCV (RBC) [Entitic vol] 92.8 fL 83.5-101 [facility] Monocytes Auto (Bld) [#/Vol] Ordered By: Hudson De Leon on 10-15-2022 Monocytes (Bld) [#/Vol] 0.4 10*3/uL 0.0-0.8 [facility] Monocytes/100 WBC Auto (Bld) Ordered By: Hudson De Leno on 10-15-2022 Monocytes/100 WBC (Bld) 8.6 % . [facility] Neutrophils Auto (Bld) [#/Vo l]Ordered By: Hudson De Leon on 10-15-2022 Neutrophils (Bld) [#/Vol] 3.4 10*3/uL 1.8-7.7 [facility] Neutrophils/100 WBC Auto (Bl d)Ordered By: Hudson De Leon on 10-15-2022 Neutrophils/100 WBC (Bld) 69.3 % . [facility] Nitrite Test strip Ql (U)Ord ered By: Hudson De Leon on 10-15-2022 Nitrite Ql (U) Negative Negative [facility] No Panel InformationOrdered By: Hudson De Leon on 10-15-2022 Estimated GFR (CKD-EPI) > 60.0 mL/Min [facility] Creatinine Clearance (Chem N/A [facility] Nucleated erythrocytes [Pres ence] in Blood by Automated countOrdered By: Hudson De Leon on 10-15-2022 Nucleated RBC Auto Ql (Bld) 0.1 /100{WBC} 0-0.5 [facility] Platelet mean volume Auto (B ld) [Entitic vol]Ordered By: Hudson De Leon on 10-15-2022 Platelet mean volume (Bld) [Entitic vol] 9.1 fL 6.6-10.1 [facility] Platelets Auto (Bld) [#/Vol] Ordered By: Hudson De Leon on 10-15-2022 Platelets (Bld) [#/Vol] 196 10*3/uL 150-450 [facility] Potassium [Moles/volume] in Serum or PlasmaOrdered By: Hudson De Leon on 10-15-2022 Potassium [Moles/Vol] 4.4 mmol/L 3.5-5.1 [facility] Protein Auto test strip (U) [Mass/Vol]Ordered By: Hudson De Leon on 10-15-2022 Protein (U) [Mass/Vol] Negative Negative [facility] Protein [Mass/volume] in Ser um or PlasmaOrdered By: Hudson De Leon on 10-15-2022 Protein [Mass/Vol] 6.9 g/dL 6.4-8.9 [facility] RBC Auto (Bld) [#/Vol]Ordere d By: Hudson De Leon on 10-15-2022 RBC (Bld) [#/Vol] 4.60 10*6/uL 3.90-5.60 [facility] Serum or plasma albumin/glob ulin mass ratioOrdered By: Hudson De Leon on 10-15-2022 Albumin/Globulin [Mass ratio] 1.5 {ratio} [facility] Serum or plasma anion gap de terminationOrdered By: Hudson De Leon on 10-15-2022 Anion gap [Moles/Vol] 9.6 mmol/L 6.0-15.0 [facility] Sodium [Moles/volume] in Ser um or PlasmaOrdered By: Hudson De Leon on 10-15-2022 Sodium [Moles/Vol] 139 mmol/L 136-145 [facility] Specific gravity Auto test s trip (U) [Rel density]Ordered By: Hudson De Leon on 10-15-2022 Specific gravity (U) [Rel density] 1.022 1.001-1.03 0 [facility] Squamous epithelial cells de tection in urine sediment by light microscopyOrdered By: Hudson De Leon on 10-15-2022 Epithelial cells.squamous LM Ql (Urine sed) None seen [HPF] 0-2 [facility] Urea nitrogen [Mass/volume] in Serum or PlasmaOrdered By: Hudson De Leon on 10-15-2022 Urea nitrogen [Mass/Vol] 24 mg/dL 7-25 [facility] Urine bacteria detection by automated methodOrdered By: Hudson De Leon on 10-15-2022 Bacteria Auto Ql (U) None seen None Seen [facility] Urine clarity by refractomet ry automatedOrdered By: Hudson De Leon on 10-15-2022 Clarity Refractometry automated (U) Clear Clear [facility] Urine glucose measurement by automated test strip (mass/volume)Ordered By: Hudson De Leon on 10-15-2022 Glucose Auto test strip (U) [Mass/Vol] Normal mg/dL Normal [facility] Urine hemoglobin detection b y automated test stripOrdered By: Hudson De Leon on 10-15-2022 Hemoglobin Auto test strip Ql (U) Negative Negative [facility] Urine leukocyte esterase det ection by automated test stripOrdered By: Hudson De Leon on 10-15-2022 Leukocyte esterase Auto test strip Ql (U) Negative Negative [facility] Urobilinogen Auto test strip (U) [Mass/Vol]Ordered By: Hudson De Leon on 10-15-2022 Urobilinogen (U) [Mass/Vol] Normal mg/dL Normal [facility] WBC Auto (Bld) [#/Vol]Ordere d By: Hudson De Leon on 10-15-2022 WBC (Bld) [#/Vol] 4.9 10*3/uL 4.1-10.5 [facility] pH Auto test strip (U)Ordere d By: Hudson De Leon on 10-15-2022 pH (U) 5.5 [pH] 5.0-9.0 [facility] SARS-CoV-2 (COVID-19) RNA LU+probe Ql (Unsp spec) Not detected Normal NOT DETECTED [facility] Comment on above: Result Comment: This test is not yet approved or cleared by the [place] FDA. When there are no FDA-approved or cleared tests available, and other criteria are met, FDA can make tests available under an emergency access mechanism called an Emergency Use Authorization (EUA). The EUA for this test is supported by the [place] of Health and Human Service's (HHS's) declaration [...] consistent with SARS-CoV-2. Performed By: #### I HARRIETTULIN #### [facility] [address] [place] [address] Dr. Yilan King SYMPTOMATIC COVID-19 ANTIGEN on 09-11-2022 EUA Statement SEE BELOW Normal [facility] Comment on above: Result Comment: This test [...] By: #### C VDAGS #### [facility] [address] [place] [address] Dr. Carolyn King SARS-CoV-2 (COVID-19) RNA LU+probe Ql (Unsp spec) Negative Normal NEGATIVE [facility] Comment on above: Performed By: #### C VDAGS #### [facility] [address] [place] [address] FOOT RT WO [...] by: LAURY ZEPEDA Date: 2022-08-31 08:09 Normal [facility] US SINGLE QUAD RT UPPERon [...] by: LAURY ZEPEDA Date: 2022-08-31 07:41 Normal [facility] POINT OF CARE GLUCOSEon 12- Glucose [Mass/Vol] 125 mg/dL Critically high 74-106 [facility] Comment on above: Performed By: #### I NSULIN #### [facility] [address] [place] [address] Dr. Carolyn King Glucose [Mass/Vol] 105 mg/dL Normal 74-106 [facility] Comment on above: Performed By: #### I NSULIN #### [facility] [address] [place] [address] Dr. Carolyn King XR FOOT RT 2Von [...] Date: 2022-06-07 14:29 Normal [facility] Covid-19 PCR ([facility])on 05-24 SARS-CoV-2 (COVID-19) RNA LU+probe Ql (Unsp spec) Not detected Normal NOT DETECTED [facility] Comment on above: Result Comment: This test is not yet approved or cleared by the [place] FDA. When there are no FDA-approved or cleared tests available, and other criteria are met, FDA can make tests available under an emergency access mechanism called an Emergency Use Authorization (EUA). The EUA for this test is supported by the [employer] of Health and Human Service's (HHS's) declaration [...] By: #### I NSULIN #### [facility] [address] [place] [address] Dr. Carolyn King Albumin [Mass/volume] in Ser um or PlasmaOrdered By: Hudson De Leon on 05-23-2022 Albumin [Mass/Vol] 3.9 g/dL 3.2-5.5 [facility] Automated erythrocytes count in urine sediment (number/area)Ordered By: Hudson De Leon on 05-23-2022 RBC Auto (Urine sed) [#/Area] None seen [HPF] 0-4 [facility] Automated leukocytes count i n urine sediment (number/area)Ordered By: Hudson De Leon on 05-23-2022 WBC Auto (Urine sed) [#/Area] None seen [HPF] 0-4 [facility] Basophils Auto (Bld) [#/Vol] Ordered By: Hudson De Leon on 05-23-2022 Basophils (Bld) [#/Vol] 0.0 10*3/uL 0.0-0.2 [facility] Basophils/100 WBC Auto (Bld) Ordered By: Hudson De Leon on 05-23-2022 Basophils/100 WBC (Bld) 0.6 % . [facility] Bilirubin Test strip Ql (U)O rdered By: Hudson De Leon on 05-23-2022 Bilirubin Ql (U) Negative Negative [facility] Color Auto (U)Ordered By: Maykel shaylee Haley on 05-23-2022 Color (U) Yellow Yellow [facility] Creatinine and Glomerular fi ltration rate.predicted panel (S/P/Bld)Ordered By: Hudson De Leon on 05-23-2022 Creatinine [Mass/Vol] 0.92 mg/dL 0.64-1.27 [facility] Eosinophils Auto (Bld) [#/Vo l]Ordered By: Hudson De Leon on 05-23-2022 Eosinophils (Bld) [#/Vol] 0.0 10*3/uL 0.0-0.45 [facility] Eosinophils/100 WBC Auto (Bl d)Ordered By: Hudson De Leon on 05-23-2022 Eosinophils/100 WBC (Bld) 0.9 % . [facility] Erythrocyte distribution wid th Auto (RBC) [Ratio]Ordered By: Hudson De Leon on 05-23-2022 Erythrocyte distribution width (RBC) [Ratio] 13.4 % 12.0-14.8 [facility] Erythrocyte sedimentation ra te by Photometric methodOrdered By: Hudson De Leon on 05-23-2022 ESR Photometric method (Bld) [Velocity] 6 mm/hr 0-19 [facility] Estimated glomerular filtrat ion rate (GFR) non- AmericanOrdered By: Hudson De Leon on 05-23-2022 GFR/1.73 sq M.predicted among non-blacks MDRD (S/P/Bld) [Vol rate/Area] > 60 mL/Min [facility] Globulin Calc (S) [Mass/Vol] Ordered By: Hudson De Leon on 05-23-2022 Globulin (S) [Mass/Vol] 2.8 g/dL [facility] Hematocrit Auto (Bld) [Volum e fraction]Ordered By: Hudson De Leon on 05-23-2022 Hematocrit (Bld) [Volume fraction] 44.5 % 38.8-50.0 [facility] Hemoglobin [Mass/volume] in BloodOrdered By: Hudson De Leon on 05-23-2022 Hemoglobin (Bld) [Mass/Vol] 14.9 g/dL 13.0-17.0 [facility] Ketones Auto test strip (U) [Mass/Vol]Ordered By: Hudson De Leon on 05-23-2022 Ketones (U) [Mass/Vol] Negative Negative [facility] Laboratory - UrinalysisOrder ed By: Hudson De Leon on 05-23-2022 Hyaline casts LM Ql (Urine sed) None seen [LPF] 0-8 [facility] Leukocytes [#/volume] correc leah for nucleated erythrocytes in Blood by Automated counOrdered By: Hudson De Leon on 05-23-2022 WBC corrected for nucl RBC Auto (Bld) [#/Vol] 5.2 10*3/uL 4.1-10.5 [facility] Lymphocytes Auto (Bld) [#/Vo l]Ordered By: Hudson De Leon on 05-23-2022 Lymphocytes (Bld) [#/Vol] 1.1 10*3/uL 1.00-4.8 [facility] Lymphocytes/100 WBC Auto (Bl d)Ordered By: Hudson De Leon on 05-23-2022 Lymphocytes/100 WBC (Bld) 21.1 % . [facility] MCH Auto (RBC) [Entitic mass ]Ordered By: Hudson De Leon on 05-23-2022 MCH (RBC) [Entitic mass] 31.2 pg 27.5-35.2 [facility] MCHC Auto (RBC) [Mass/Vol]Or dered By: Hudson De Leon on 05-23-2022 MCHC (RBC) [Mass/Vol] 33.5 g/dL 32.5-35.6 [facility] MCV Auto (RBC) [Entitic vol] Ordered By: Hudson De Leon on 05-23-2022 MCV (RBC) [Entitic vol] 93.3 fL 83.5-101 [facility] Monocytes Auto (Bld) [#/Vol] Ordered By: Hudson De Leon on 05-23-2022 Monocytes (Bld) [#/Vol] 0.5 10*3/uL 0.0-0.8 [facility] Monocytes/100 WBC Auto (Bld) Ordered By: Hudson De Leon on 05-23-2022 Monocytes/100 WBC (Bld) 10.3 % . [facility] Neutrophils Auto (Bld) [#/Vo l]Ordered By: Hudson De Leon on 05-23-2022 Neutrophils (Bld) [#/Vol] 3.5 10*3/uL 1.8-7.7 [facility] Neutrophils/100 WBC Auto (Bl d)Ordered By: Hudson De Leon on 05-23-2022 Neutrophils/100 WBC (Bld) 67.1 % . [facility] Nitrite Test strip Ql (U)Ord ered By: Hudson De Leon on 05-23-2022 Nitrite Ql (U) Negative Negative [facility] No Panel InformationOrdered By: Hudson De Leon on 05-23-2022 Estimated GFR () > 60 mL/Min [facility] Comment on above: GFR estimated refere nce range: According to KDOQI guidelines, <60 ml/min/1.73m2 is sufficient to diagnose a patient with chronic kidney disease. Pharmacy Creatinine Clearance (Chem N/A [facility] Nucleated erythrocytes [Pres ence] in Blood by Automated countOrdered By: Hudson De Leon on 05-23-2022 Nucleated RBC Auto Ql (Bld) 0.2 /100{WBC} 0-0.5 [facility] Platelet mean volume Auto (B ld) [Entitic vol]Ordered By: Hudson De Leon on 05-23-2022 Platelet mean volume (Bld) [Entitic vol] 9.4 fL 6.6-10.1 [facility] Platelets Auto (Bld) [#/Vol] Ordered By: Hudson De Leon on 05-23-2022 Platelets (Bld) [#/Vol] 234 10*3/uL 150-450 [facility] Protein Auto test strip (U) [Mass/Vol]Ordered By: Hudson De Leon on 05-23-2022 Protein (U) [Mass/Vol] Negative Negative [facility] Protein [Mass/volume] in Ser um or PlasmaOrdered By: Hudson De Leon on 05-23-2022 Protein [Mass/Vol] 6.7 g/dL 6.1-7.9 [facility] RBC Auto (Bld) [#/Vol]Ordere d By: Hudson De Leon on 05-23-2022 RBC (Bld) [#/Vol] 4.77 10*6/uL 3.90-5.60 [facility] Serum or plasma alanine gates otransferase measurement without P-5'-P (enzymatic activiOrdered By: Hudson De Leon on 05-23-2022 ALT No additional P-5'-P [Catalytic activity/Vol] 27 U/L 10-60 [facility] Serum or plasma albumin/glob ulin mass ratioOrdered By: Hudson De Leon on 05-23-2022 Albumin/Globulin [Mass ratio] 1.4 {ratio} [facility] Serum or plasma alkaline amanda sphatase measurement (enzymatic activity/volume)Ordered By: Hudson De Leon on 05-23-2022 ALP [Catalytic activity/Vol] 90 U/L 32-92 [facility] Serum or plasma anion gap de terminationOrdered By: Hudson De Leon on 05-23-2022 Anion gap [Moles/Vol] 12.3 mmol/L 6.0-15.0 [facility] Serum or plasma aspartate am inotransferase measurement (enzymatic activity/volume)Ordered By: Hudson De Leon on 05-23-2022 AST [Catalytic activity/Vol] 31 U/L 10-42 [facility] Serum or plasma calcium karl urement (mass/volume)Ordered By: Hudson De Leon on 05-23-2022 Calcium [Mass/Vol] 9.1 mg/dL 8.2-10.2 [facility] Serum or plasma chloride reba surement (moles/volume)Ordered By: Hudson De Leon on 05-23-2022 Chloride [Moles/Vol] 102 mmol/L 95-114 [facility] Serum or plasma glucose karl urement (mass/volume)Ordered By: Hudson De Leon on 05-23-2022 Glucose [Mass/Vol] 75 mg/dL 70-100 [facility] Comment on above: ADA recommended refe rence rangeRandom Glucose Reference Range is dependent on time and content of last meal. Glucose of more than 200 mg/dL in a nonstressed, ambulatory subject supports the diagnosis of Diabetes Mellitus. Serum or plasma potassium me asurement (moles/volume)Ordered By: Hudson De Leon on 05-23-2022 Potassium [Moles/Vol] 4.0 mmol/L 3.5-5.1 [facility] Serum or plasma sodium measu rement (moles/volume)Ordered By: Hudson De Leon on 05-23-2022 Sodium [Moles/Vol] 137 mmol/L 136-146 [facility] Serum or plasma total biliru bin measurement (mass/volume)Ordered By: Hudson De Leon on 05-23-2022 Bilirubin [Mass/Vol] 0.6 mg/dL 0.3-1.2 [facility] Serum or plasma total carbon dioxide measurement (moles/volume)Ordered By: Hudson De Leon on 05-23-2022 CO2 [Moles/Vol] 26.7 mmol/L 22.0-30.0 [facility] Serum or plasma urea nitroge n measurement (mass/volume)Ordered By: Hudson De Leon on 05-23-2022 Urea nitrogen [Mass/Vol] 11 mg/dL 9-23 [facility] Specific gravity Auto test s trip (U) [Rel density]Ordered By: Hudson De Leon on 05-23-2022 Specific gravity (U) [Rel density] 1.014 1.001-1.03 0 [facility] Squamous epithelial cells de tection in urine sediment by light microscopyOrdered By: Hudson De Leon on 05-23-2022 Epithelial cells.squamous LM Ql (Urine sed) None seen [HPF] 0-2 [facility] Urine bacteria detection by automated methodOrdered By: Hudson De Leon on 05-23-2022 Bacteria Auto Ql (U) None seen None Seen [facility] Urine clarity by refractomet ry automatedOrdered By: Hudson De Leon on 05-23-2022 Clarity Refractometry automated (U) Clear Clear [facility] Urine glucose measurement by automated test strip (mass/volume)Ordered By: Hudson De Leon on 05-23-2022 Glucose Auto test strip (U) [Mass/Vol] Normal mg/dL Normal [facility] Urine hemoglobin detection b y automated test stripOrdered By: Hudson Catherinerow on 05-23-2022 Hemoglobin Auto test strip Ql (U) Negative Negative [facility] Urine leukocyte esterase det ection by automated test stripOrdered By: Hudson De Leon on 05-23-2022 Leukocyte esterase Auto test strip Ql (U) Negative Negative [facility] Urobilinogen Auto test strip (U) [Mass/Vol]Ordered By: Hudson Catherinerow on 05-23-2022 Urobilinogen (U) [Mass/Vol] Normal mg/dL Normal [facility] WBC Auto (Bld) [#/Vol]Ordere d By: Hudson De Leon on 05-23-2022 WBC (Bld) [#/Vol] 5.2 10*3/uL 4.1-10.5 [facility] pH Auto test strip (U)Ordere d By: Hudson Catherinerow on 05-23-2022 pH (U) 5.5 [pH] 5.0-9.0 [facility] BN SPINE, CERVICAL, 2 OR 3 V IEWSon 05-02-2022 BN SPINE, CERVICAL, 2 OR 3 VIEWS Patient Name: JAY CARR STUDY: SPINE, CERVICAL, 2 OR 3 VIEWS; 05/02/2022 9:46 am INDICATION: cervical post op 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 COMPARISON: 08/03/2021 ACCESSION NUMBER(S): [id number] ORDERING CLINICIAN: KENTON LAWSON FINDINGS: Two views of the cervical spine. Patient is status post anterior cervical discectomy and fusion from C5-C7. No hardware complication. No acute fracture. No focal subluxation. Mild multilevel degenerative changes. IMPRESSION: Postsurgical changes status post ACDF from C5-C7. No hardware complication. Mild multilevel spondylosis. Electronically signed by: FRANCISCO FOLEY MD [facility] BN SPINE, LUMBOSACRAL; 2 OR 3 VIEWSon 05-02-2022 BN SPINE, LUMBOSACRAL; 2 OR 3 VIEWS Patient Name: JAY CARR STUDY: SPINE, LUMBOSACRAL; 2 OR 3 VIEWS; 05/02/2022 9:46 am INDICATION: AP/LAT M54.50: Lumbar back pain M48.062: Lumbar stenosis with neurogenic claudication. COMPARISON: 01/29/2022 ACCESSION NUMBER(S): [id number] ORDERING CLINICIAN: KENTON LAWSON FINDINGS: Two views [...] spondylosis. Electronically signed by: FRANCISCO FOLEY MD [facility] Established Visit (Orthopaed ic Surgery)on 05-02-2022 Established [...] Present Illness Jay is a pleasant 62-year-old fibmd-nfih-hjckuvte male who presents today with his for [...] by phys (more content not included)... [facility]22 XR Cervical spine 3 Views Normal [facility] DO Work Phone: XR Lumbar spine AP and Lateral Normal [facility] DO Work Phone: INSULINon 03-29-2022 Insulin 14.5 uIU/mL Normal 2.6-24.9 [facility] Comment on above: Performed By: #### I NSULIN #### [facility] [address] [address] [address] Carolyn King CBC AUTO DIFFon 03-28-2022 BASO # 0.0 103/ul Normal 0.0-0.1 [facility] Comment on above: Performed By: #### C BC #### [facility] [address] [place], [place] [address] Dr. Carolyn King Basophils/100 WBC (Bld) 0.6 % Normal 0.2-2.0 [facility] Comment on above: Performed By: #### C BC #### [facility] [address] [place] [address] Dr. Carolyn King EO # 0.1 103/ul Normal 0.0-0.7 [facility] Comment on above: Performed By: #### C BC #### [facility] [address] [place] [address] Dr. Carolyn King Eosinophils/100 WBC (Bld) 1.6 % Normal 0.9-7.0 [facility] Comment on above: Performed By: #### C BC #### [facility] [address] [place] [address] Dr. Carolyn King Erythrocyte distribution width (RBC) [Ratio] 13.2 % Normal 11.0-15.0 [facility] Comment on above: Performed By: #### C BC #### [facility] [address] [place] [address] Dr. Carolyn King Hematocrit (Bld) [Volume fraction] 44.5 % Normal 42.0-54.0 [facility] Comment on above: Performed By: #### C BC #### [facility] [address] [place] [address] Dr. Carolyn King Hemoglobin (Bld) [Mass/Vol] 15.0 g/dL Normal 14.0-18.0 [facility] Comment on above: Performed By: #### C BC #### [facility] [address] [place] [address] Dr. Carolyn King IG # 0.01 10e3/ul Normal 0.00-0.03 [facility] Comment on above: Performed By: #### C BC #### [facility] [address] [place] [address] Dr. Carolyn King IG % 0.2 % Normal 0.0-0.5 [facility] Comment on above: Performed By: #### C BC #### [facility] [address] [place] [address] Dr. Carolyn King LYMPH # 1.0 103/ul Critically low 1.2-3.8 [facility] Comment on above: Performed By: #### C BC #### [facility] [address] [place] [address] Dr. Carolyn King Lymphocytes/100 WBC (Bld) 15.8 % Critically low 20.5-60.0 [facility] Comment on above: Performed By: #### C BC #### [facility] [address] [place] [address] Dr. Carolyn King MANUAL DIFF REQ NO Normal [facility] Comment on above: Performed By: #### C BC #### [facility] [address] [place] [address] Dr. Carolyn King MCH (RBC) [Entitic mass] 31.1 pg Normal 25.9-34.0 [facility] Comment on above: Performed By: #### C BC #### [facility] [address] [place] [address] Dr. Carolyn King MCHC (RBC) [Mass/Vol] 33.7 g/dL Normal 29.9-35.2 [facility] Comment on above: Performed By: #### C BC #### [facility] [address] [place] [address] Dr. Carolyn King MCV (RBC) [Entitic vol] 92.3 fL Normal 80.0-94.0 [facility] Comment on above: Performed By: #### C BC #### [facility] [address] [place] [address] Dr. Carolyn King MONO # 0.7 103/ul Normal 0.3-0.8 [facility] Comment on above: Performed By: #### C BC #### [facility] [address] [place] [address] Dr. Carolyn King Monocytes/100 WBC (Bld) 10.7 % Normal 1.7-12.0 [facility] Comment on above: Performed By: #### C BC #### [facility] [address] [place] [address] Dr. Carolyn King NEUT # 4.4 103/ul Normal 1.4-6.5 [facility] Comment on above: Performed By: #### C BC #### [facility] [address] [address] [address] Carolyn King Neutrophils/100 WBC (Bld) 71.1 % Normal 43.0-75.0 [facility] Comment on above: Performed By: #### C BC #### [facility] [address] [address] [address] Carolyn King Platelet mean volume (Bld) [Entitic vol] 10.2 fL Normal 9.5-13.5 [facility] Comment on above: Performed By: #### C BC #### [facility] [address] [address] [address] Carolyn King PLT 242 103/ul Normal 150-450 [facility] Comment on above: Performed By: #### C BC #### [facility] [address] [place] [address] Dr. Carolyn King RBC 4.82 106/ul Normal 4.70-6.10 [facility] Comment on above: Performed By: #### C BC #### [facility] [address] [place] [address] Dr. Carolyn King WBC 6.2 103/ul Normal 4.0-11.0 [facility] Comment on above: Performed By: #### C BC #### [facility] [address] [address] [address] Carolyn King FREE THYROXINE INDEX T7on FTI 2.55 Normal 1.30-4.50 [facility] Comment on above: Performed By: #### U ALLEN, TSH, T7, LIPID, CMP #### [facility] [address] [place] [address] Dr. Carolyn King T3U 30.0 % Critically low 33.0-40.0 [facility] Comment on above: Performed By: #### U ALLEN, TSH, T7, LIPID, CMP #### [facility] [address] [place] [address] Dr. Carolyn King T4 [Mass/Vol] 8.50 ug/dL Normal 4.50-12.10 [facility] [place] [facility] Comment on above: Performed By: #### U ALLEN, TSH, T7, LIPID, CMP #### [facility] [address] [place] [address] Dr. Carolyn King GLYCOHEMOGLOBIN A1Con 2021 ADA RECOMMENDATION SEE BELOW Normal [facility] Comment on above: Result Comment: ADA RECOMMENDED LIMIT 4.0 - 6.0 ADA THERAPEUTIC TARGET < 7.0 ACTION SUGGESTED > 7.0 Performed By: #### A 1C #### [facility] [address] [address] [address] Carolyn King Glucose [Mass/Vol] 103 mg/dL Normal 74-106 [facility] Comment on above: Performed By: #### A 1C #### [facility] [address] [place] [address] Dr. Carolyn King Performed By: #### U ALLEN, TSH, T7, LIPID, CMP #### [facility] [address] [place] [address] Dr. Carolyn King HbA1c (Bld) [Mass fraction] 5.2 % Normal 4.5-6.2 [facility] Comment on above: Performed By: #### A 1C #### [facility] [address] [place] [address] Dr. Carolyn King LIPID PROFILEon 03-28-2022 CHOL-HDL RATIO NORM SEE BELOW Normal [facility] Comment on above: Result Comment: 3.3 - 4.4 LOW RISK 4.4 - 7.1 AVERAGE RISK 7.1 - 11.0 MODERATE RISK >11.0 HIGH RISK Performed By: #### U ALLEN, TSH, T7, LIPID, CMP #### [facility] [address] [place] [address] Dr. Carolyn King Cholesterol [Mass/Vol] 157 mg/dL Normal <=200 [facility] Comment on above: Performed By: #### U ALLEN, TSH, T7, LIPID, CMP #### [facility] [address] [place] [address] Dr. Carolyn King Cholesterol in HDL [Mass/Vol] 49 mg/dL Normal 40-60 [facility] Comment on above: Performed By: #### U ALLEN, TSH, T7, LIPID, CMP #### [facility] [address] [address] [address] Carolyn King Cholesterol in LDL [Mass/Vol] 85.6 mg/dL Normal [facility] Comment on above: Performed By: #### U ALLEN, TSH, T7, LIPID, CMP #### [facility] [address] [address] [address] Carolyn King Cholesterol.total/Chol esterol in HDL [Mass ratio] 3.2 {ratio} Normal [facility] Comment on above: Performed By: #### U ALLEN, TSH, T7, LIPID, CMP #### [facility] [address] [address] [address] Carolyn King HDL NORMAL > or = 60 mg/dl - LO W CARDIOVASCULAR RISK <40 mg/dl - HIGH CARDIOVASCULAR RISK Normal [facility] Comment on above: Performed By: #### U ALLEN, TSH, T7, LIPID, CMP #### [facility] [address] [address] [address] Carolyn King LDL CALC NORMAL SEE BELOW Normal [facility] Comment on above: Result Comment: <100 mg/dl OPTIMAL 100 - 129 mg/dl NEAR OR ABOVE OPTIMAL 130 - 159 mg/dl BORDERLINE HIGH 160 - 189 mg/dl HIGH >190 mg/dl VERY HIGH Performed By: #### U ALLEN, TSH, T7, LIPID, CMP #### [facility] [address] [address] [address] Carolyn King Triglyceride [Mass/Vol] 112 mg/dL Normal <=150 [facility] Comment on above: Performed By: #### U ALLEN, TSH, T7, LIPID, CMP #### [facility] [address] [address] [address] Carolyn King VLDL CALC 22.4 mg/dL Normal [facility] Comment on above: Performed By: #### U ALLEN, TSH, T7, LIPID, CMP #### [facility] [address] [address] [address] Carolyn King PROF 14(COMP METB)on 022 Albumin [Mass/Vol] 3.9 g/dL Normal 3.4-5.0 [facility] Comment on above: Performed By: #### U ALLEN, TSH, T7, LIPID, CMP #### [facility] [address] [address] [address] Carolyn King Albumin/Globulin [Mass ratio] 1.1 {ratio} Normal [facility] Comment on above: Performed By: #### U ALLEN, TSH, T7, LIPID, CMP #### [facility] [address] [place] [address] Dr. Carolyn King ALP [Catalytic activity/Vol] 108 U/L Normal 46-116 [facility] Comment on above: Performed By: #### U ALLEN, TSH, T7, LIPID, CMP #### [facility] [address] [place] [address] Dr. Carolyn King ALT [Catalytic activity/Vol] 28 U/L Normal 16-63 [facility] Comment on above: Performed By: #### U ALLEN, TSH, T7, LIPID, CMP #### [facility] [address] [place] [address] Dr. Carolyn King Anion gap [Moles/Vol] 6.6 mmol/L Normal [facility] Comment on above: Performed By: #### U ALLEN, TSH, T7, LIPID, CMP #### [facility] [address] [place] [address] Dr. Carolyn King AST [Catalytic activity/Vol] 22 U/L Normal 15-37 [facility] Comment on above: Performed By: #### U ALLEN, TSH, T7, LIPID, CMP #### [facility] [address] [place] [address] Dr. Carolyn King Bilirubin [Mass/Vol] 0.6 mg/dL Normal 0.2-1.0 [facility] Comment on above: Performed By: #### U ALLEN, TSH, T7, LIPID, CMP #### [facility] [address] [place] [address] Dr. Carolyn King Calcium [Mass/Vol] 8.7 mg/dL Normal 8.5-10.1 [facility] Comment on above: Performed By: #### U ALLEN, TSH, T7, LIPID, CMP #### [facility] [address] [address] [address] Carolyn King Chloride [Moles/Vol] 105 mmol/L Normal 98-107 [facility] Comment on above: Performed By: #### U ALLEN, TSH, T7, LIPID, CMP #### [facility] [address] [place] [address] Dr. Carolyn King CO2 [Moles/Vol] 30.6 mmol/L Normal 21.0-32.0 [facility] Comment on above: Performed By: #### U ALLEN, TSH, T7, LIPID, CMP #### [facility] [address] [address] [address] Carolyn King Creatinine [Mass/Vol] 0.96 mg/dL Normal 0.70-1.30 [facility] Comment on above: Performed By: #### U ALLEN, TSH, T7, LIPID, CMP #### [facility] [address] [place] [address] Dr. Carolyn King EGFR-AF SWEDISH >60 Normal >=60 [facility] Comment on above: Performed By: #### U ALLEN, TSH, T7, LIPID, CMP #### [facility] [address] [place] [address] Dr. Carolyn King EGFR-NON AF SWEDISH >60 Normal >=60 [facility] Comment on above: Performed By: #### U ALLEN, TSH, T7, LIPID, CMP #### [facility] [address] [place] [address] Dr. Carolyn King Globulin (S) [Mass/Vol] 3.5 g/dL Normal [facility] Comment on above: Performed By: #### U ALLEN, TSH, T7, LIPID, CMP #### [facility] [address] [address] [address] Carolyn King Potassium [Moles/Vol] 4.2 mmol/L Normal 3.5-5.1 [facility] Comment on above: Performed By: #### U ALLEN, TSH, T7, LIPID, CMP #### [facility] [address] [place] [address] Dr. Carolyn King Protein [Mass/Vol] 7.4 g/dL Normal 6.4-8.2 [facility] Comment on above: Performed By: #### U ALLEN, TSH, T7, LIPID, CMP #### [facility] [address] [address] [address] Carolyn King Sodium [Moles/Vol] 138 mmol/L Normal 136-145 [facility] Comment on above: Performed By: #### U ALLEN, TSH, T7, LIPID, CMP #### [facility] [address] [address] [address] Carolyn King Urea nitrogen [Mass/Vol] 16.0 mg/dL Normal 7.0-18.0 [facility] Comment on above: Performed By: #### U ALLEN, TSH, T7, LIPID, CMP #### [facility] [address] [address] [address] Carolyn King Urea nitrogen/Creatinine [Mass ratio] 16.7 mg/mg Normal [facility] Comment on above: Performed By: #### U ALLEN, TSH, T7, LIPID, CMP #### [facility] [address] [address] [address] Carolyn King TSHon 03-28-2022 TSH 1.986 uIU/mL Normal 0.358-3.74 0 [facility] Comment on above: Performed By: #### U ALLEN, TSH, T7, LIPID, CMP #### [facility] [address] [address] [address] Carolyn King URIC ACID SERUMon 03-28-2022 Urate [Mass/Vol] 5.5 mg/dL Normal 3.5-7.2 [facility] Comment on above: Performed By: #### U ALLEN, TSH, T7, LIPID, CMP #### [facility] [address] [address] [address] Carolyn King Ammonium urate crystals dete ction in stone by infrared spectroscopyOrdered By: Shun Machado on 02-15-2022 Ammonium urate crystals Infrared spectroscopy Ql (Stone) N/A [facility] Basophils Auto (Bld) [#/Vol] Ordered By: Steve Pina on 02-15-2022 Basophils (Bld) [#/Vol] 0.0 10*3/uL 0.0-0.2 [facility] Basophils/100 WBC Auto (Bld) Ordered By: Steve Pina on 02-15-2022 Basophils/100 WBC (Bld) 0.9 % . [facility] Blood hemoglobin measurement (mass/volume)Ordered By: Steve Pina on 02-15-2022 Hemoglobin (Bld) [Mass/Vol] 14.2 g/dL 13.0-17.0 [facility] Blood leukocytes automated c ount (number/volume)Ordered By: Steve Pina on 02-15-2022 WBC (Bld) [#/Vol] 4.5 10*3/uL 4.5-11.0 [facility] Calcium bilirubinate measure mentOrdered By: Shun Machado on 02-15-2022 Calcium bilirubinate (Stone) [Mass fraction] N/A [facility] Calcium carbonate measuremen tOrdered By: Shun Machado on 02-15-2022 Calcium carbonate (Stone) [Mass fraction] N/A [facility] Calcium hydrogen phosphate d ihydrate/Total in StoneOrdered By: Shun Machado on 02-15-2022 Calcium hydrogen phosphate dihydrate (Stone) [Mass fraction] N/A [facility] Calcium oxalate dihydrate cr ystals detection in stone by infrared spectroscopyOrdered By: Shun Machado on 02-15-2022 Calcium oxalate dihydrate crystals Infrared spectroscopy Ql (Stone) 10 % . [facility] Calcium oxalate monohydrate/ Total in StoneOrdered By: Shun Machado on 02-15-2022 Calcium oxalate monohydrate (Stone) [Mass fraction] 90 % . [facility] Calcium phosphate measuremen tOrdered By: Shun Machado on 02-15-2022 Calcium phosphate (Stone) [Mass fraction] N/A [facility] Calculus analysis interpreta tion in stoneOrdered By: Shun Machado on 02-15-2022 Calculus analysis [Interp] N/A [facility] Calculus analysis [Interp] See comment . [facility] Comment on above: Physician questions regarding Calculi Analysis contact [facility] at: [phone]. Calculi report will follow via computer, mail or payroll and benefits assistant delivery. Calculus analysis with calcu iggy photography interpretation in stoneOrdered By: Shun Machado on 02-15-2022 Calculus analysis with calculus photography [Interp] See comment . [facility] Comment on above: Photograph will foll ow under a separate cover Cellular material measuremen t in stone by estimated (mass/mass)Ordered By: Shun Machado on 02-15-2022 Cellular material Est (Stone) [Mass/Mass] N/A [facility] Cholesterol/Total in StoneOr dered By: Shun Machado on 02-15-2022 Cholesterol (Stone) [Mass fraction] N/A [facility] Composition of stoneOrdered By: Shun Machado on 02-15-2022 Composition Nom (Stone) See comment . [facility] Comment on above: Percentage (Represen ts the % composition) Creatinine and Glomerular fi ltration rate.predicted panel (S/P/Bld)Ordered By: Steve Pina on 02-15-2022 Creatinine [Mass/Vol] 0.96 mg/dL 0.64-1.27 [facility] Cystine measurementOrdered B y: Shun Machado on 02-15-2022 Cystine (Unsp spec) [Moles/Vol] N/A [facility] Determination of color of ca lculusOrdered By: Shun Machado on 02-15-2022 Color (Stone) Brown . [facility] Eosinophils Auto (Bld) [#/Vo l]Ordered By: Steve Pina on 02-15-2022 Eosinophils (Bld) [#/Vol] 0.1 10*3/uL 0.0-0.45 [facility] Eosinophils/100 WBC Auto (Bl d)Ordered By: Steve Pina on 02-15-2022 Eosinophils/100 WBC (Bld) 2.7 % . [facility] Erythrocyte distribution wid th Auto (RBC) [Ratio]Ordered By: Steve Pina on 02-15-2022 Erythrocyte distribution width (RBC) [Ratio] 14.0 % 12.0-14.8 [facility] Estimated glomerular filtrat ion rate (GFR) non- AmericanOrdered By: Steve Pina on 02-15-2022 GFR/1.73 sq M.predicted among non-blacks MDRD (S/P/Bld) [Vol rate/Area] > 60 mL/Min [facility] Hematocrit Auto (Bld) [Volum e fraction]Ordered By: Steve Pina on 02-15-2022 Hematocrit (Bld) [Volume fraction] 42.2 % 38.8-50.0 [facility] Hydroxyapatite [Energy Diffe rence] in 24 hour UrineOrdered By: Shun Machado on 02-15-2022 Hydroxyapatite (24H U) [Energy diff] N/A [facility] Laboratory - Hematology and Cell countsOrdered By: Steve Pina on 02-15-2022 Nucleated RBC/100 WBC (Bld) [Ratio] 0.0 % 0-0.5 [facility] Lymphocytes Auto (Bld) [#/Vo l]Ordered By: Steve Pina on 02-15-2022 Lymphocytes (Bld) [#/Vol] 1.0 10*3/uL 1.00-4.8 [facility] Lymphocytes/100 WBC Auto (Bl d)Ordered By: Steve Pina on 02-15-2022 Lymphocytes/100 WBC (Bld) 21.3 % . [facility] MCH Auto (RBC) [Entitic mass ]Ordered By: Steve Pina on 02-15-2022 MCH (RBC) [Entitic mass] 31.0 pg 27.5-35.2 [facility] MCHC Auto (RBC) [Mass/Vol]Or dered By: Steve Pina on 02-15-2022 MCHC (RBC) [Mass/Vol] 33.7 g/dL 32.5-35.6 [facility] MCV Auto (RBC) [Entitic vol] Ordered By: Steve Pina on 02-15-2022 MCV (RBC) [Entitic vol] 92.1 fL 83.5-101 [facility] Measurement of proportion of calculus composed of dried blood (mass/mass)Ordered By: Shun Machado on 02-15-2022 Blood.dried (Stone) [Mass fraction] N/A [facility] Monocytes Auto (Bld) [#/Vol] Ordered By: Steve Pina on 02-15-2022 Monocytes (Bld) [#/Vol] 0.5 10*3/uL 0.0-0.8 [facility] Monocytes/100 WBC Auto (Bld) Ordered By: Steve Pina on 02-15-2022 Monocytes/100 WBC (Bld) 10.1 % . [facility] Neutrophils Auto (Bld) [#/Vo l]Ordered By: Steve Pina on 02-15-2022 Neutrophils (Bld) [#/Vol] 3.0 10*3/uL 1.8-7.7 [facility] Neutrophils/100 WBC Auto (Bl d)Ordered By: Steve Pina on 02-15-2022 Neutrophils/100 WBC (Bld) 65.0 % . [facility] Newberyite/Total in StoneOrd ered By: Shun Machado on 02-15-2022 Newberyite (Stone) [Mass fraction] N/A [facility] No Panel InformationOrdered By: Shun Machado on 02-15-2022 Stone 2,8 Dihydroxyadenine N/A [facility] Stone Analysis Disclaimer See comment . [facility] Comment on above: This test was develo ped and its performance characteristics determined by [employer]. It has not been cleared or approved by the Food and Drug Administration. Performed at: [facility] Stone Analysis [address] [place] [address] [address], [place], [place] [id number] Nut Sheller: Riley Parikh PhD, Phone: [phone] Stone Bilirubinate N/A [facility] Stone Calcium Palmitate N/A [facility] Stone [facility] Stone Carbonate Apatite N/A [facility] Stone Drug or Metabolite N/A [facility] Stone Other Constituent N/A [facility] Stone Xanthine N/A [facility] No Panel InformationOrdered By: Steve Pina on 02-15-2022 Estimated GFR () > 60 mL/Min [facility] Comment on above: GFR estimated refere nce range: According to KDOQI guidelines, <60 ml/min/1.73m2 is sufficient to diagnose a patient with chronic kidney disease. Pharmacy Creatinine Clearance (Chem 93.62 [facility] Platelet mean volume Auto (B ld) [Entitic vol]Ordered By: Steve Pina on 02-15-2022 Platelet mean volume (Bld) [Entitic vol] 7.9 fL 6.6-10.1 [facility] Platelets Auto (Bld) [#/Vol] Ordered By: Steve Pina on 02-15-2022 Platelets (Bld) [#/Vol] 202 10*3/uL 150-450 [facility] RBC Auto (Bld) [#/Vol]Ordere d By: Steve Pina on 02-15-2022 RBC (Bld) [#/Vol] 4.58 10*6/uL 3.90-5.60 [facility] Serum or plasma calcium karl urement (mass/volume)Ordered By: Steve Pina on 02-15-2022 Calcium [Mass/Vol] 9.0 mg/dL 8.2-10.2 [facility] Serum or plasma chloride reba surement (moles/volume)Ordered By: Steve Pina on 02-15-2022 Chloride [Moles/Vol] 102 mmol/L 95-114 [facility] Serum or plasma glucose karl urement (mass/volume)Ordered By: Steve Pina on 02-15-2022 Glucose [Mass/Vol] 108 mg/dL 70-100 [facility] Comment on above: ADA recommended refe rence range Random Glucose Reference Range is dependent on time and content of last meal. Glucose of more than 200 mg/dL in a nonstressed, ambulatory subject supports the diagnosis of Diabetes Mellitus. Serum or plasma potassium me asurement (moles/volume)Ordered By: Steve Pina on 02-15-2022 Potassium [Moles/Vol] 3.9 mmol/L 3.5-5.1 [facility] Serum or plasma sodium measu rement (moles/volume)Ordered By: Steve Pina on 02-15-2022 Sodium [Moles/Vol] 137 mmol/L 136-146 [facility] Serum or plasma total carbon dioxide measurement (moles/volume)Ordered By: Steve Pina on 02-15-2022 CO2 [Moles/Vol] 28.0 mmol/L 22.0-30.0 [facility] Serum or plasma urea nitroge n measurement (mass/volume)Ordered By: Steve Pina on 02-15-2022 Urea nitrogen [Mass/Vol] 11 mg/dL 03-16 [facility] Size [Entitic volume] of Sto neOrdered By: Shun Machado on 02-15-2022 Size (Stone) [Entitic vol] 5x3 mm . [facility] Comment on above: Multiple pieces rece ived. Dimensions of the largest piece reported. Sodium urate crystals detect ion in stone by infrared spectroscopyOrdered By: Shun Machado on 02-15-2022 Sodium urate crystals Infrared spectroscopy Ql (Stone) N/A [facility] Specimen source subject [Typ e]Ordered By: Shun Machado on 02-15-2022 Specimen source subject Nom See comment . [facility] Comment on above: Right Ureter Triamterene measurement in c alculusOrdered By: Shun Machado on 02-15-2022 Triamterene (Stone) [Mass fraction] N/A [facility] Triple phosphate/Total in St oneOrdered By: Shun Machado on 02-15-2022 Triple phosphate (Stone) [Mass fraction] N/A [facility] Uric acid dihydrate crystals detection in stone by infrared spectroscopyOrdered By: Shun Machado on 02-15-2022 Urate dihydrate crystals Infrared spectroscopy Ql (Stone) N/A [facility] XR ANKLE RT MIN 3 VIEWSon [...] Date: 2022-02-15 06:59 Normal [facility] COVID-19 Positive/NegativeOr dered By: Shun Machado on 02-13-2022 SARS-CoV-2 (COVID-19) N gene LU+probe Ql (Resp) Negative Negative [facility] Comment on above: Testing for SARS-CoV -2 by RT-PCR This test was developed and its performance characteristics determined by [employer] ([employer]) and validated at the [facility]. This test has not been FDA [...] claudication. COMPARISON: November 08, 2021 ACCESSION NUMBER(S): [id number] ORDERING CLINICIAN: KENTON LAWSON FINDINGS: Status post anterior and posterior fusion L3-L5 unchanged prior examination with disc space replacement and posterior pedicle screws. Alignment normal. Upper lumbar degenerative changes greatest at L2-3 again noted. IMPRESSION: Satisfactory and unchanged appearance status post L3-L5 fusion. Electronically signed by: JENI SNYDER MD Normal [facility] Established Visit (Orthopaed ic Surgery)on 01-29-2022 Established Visit (Orthopaedic Surgery) Diagnoses/Problems Assessed Lumbar stenosis with neurogenic claudication (724.03) (M48.062) Orders Lumbar stenosis with neurogenic claudication Xray BN Spine, Lumbosacral; 2 or 3 Views; Status:Resulted - Preliminary; Done: [id number] 10:34AM Radiologist to Determine Optimal Study : [...] Xray BN Spine, Lumbosacral; 2 or 3 [id number] 10:34AMSKenton fernández Test NameResultFlagReference Xray Lumbar Spine [...] by: BANDAR SAENZ Date: 2022-01-29 21:07 Normal [facility] Activated partial thrombopla stin time (aPTT) in platelet poor plasma by coagulation aOrdered By: Shun Machado on 01-17-2022 aPTT Coag (PPP) [Time] 36.3 s 25.1-36.5 [facility] COVID-19 Positive/NegativeOr dered By: Shun Machado on 01-17-2022 SARS-CoV-2 (COVID-19) N gene LU+probe Ql (Resp) Negative Negative [facility] Comment on above: Testing for SARS-CoV -2 by RT-PCR This test was developed and its performance characteristics determined by [employer] ([employer]) and validated at the [facility]. This test has not been FDA [...] (PPP) [Time] 11.9 s 9.0-12.9 [facility] Platelet poor plasma interna tional normalized ratio (INR) by coagulation assay (relatOrdered By: Shun Machado on 01-17-2022 INR Coag (PPP) [Relative time] 1.1 {INR} [facility] Comment on above: INR Therapeutic Rang [...] Date: 2022-01-11 16:29 Normal [facility] CBC AUTO DIFFon 01-09-2022 BASO # 0.0 103/ul Normal 0.0-0.1 [facility] Comment on above: Performed By: #### C BC #### [facility] [address] [address] [address] Carolyn King Basophils/100 WBC (Bld) 0.4 % Normal 0.2-2.0 [facility] Comment on above: Performed By: #### C BC #### [facility] [address] [place] [address] Dr. Carolyn King EO # 0.0 103/ul Normal 0.0-0.7 [facility] Comment on above: Performed By: #### C BC #### [facility] [address] [place] [address] Dr. Carolyn King Eosinophils/100 WBC (Bld) 0.3 % Critically low 0.9-7.0 [facility] Comment on above: Performed By: #### C BC #### [facility] [address] [place] [address] Dr. Carolyn King Erythrocyte distribution width (RBC) [Ratio] 12.6 % Normal 11.0-15.0 [facility] Comment on above: Performed By: #### C BC #### [facility] [address] [place] [address] Dr. Carolyn King Hematocrit (Bld) [Volume fraction] 45.6 % Normal 42.0-54.0 [facility] Comment on above: Performed By: #### C BC #### [facility] [address] [place] [address] Dr. Carolyn King Hemoglobin (Bld) [Mass/Vol] 15.6 g/dL Normal 14.0-18.0 [facility] Comment on above: Performed By: #### C BC #### [facility] [address] [place] [address] Dr. Carolyn King IG # 0.02 10e3/ul Normal 0.00-0.03 [facility] Comment on above: Performed By: #### C BC #### [facility] [address] [place] [address] Dr. Carolyn King IG % 0.3 % Normal 0.0-0.5 [facility] Comment on above: Performed By: #### C BC #### [facility] [address] [place] [address] Dr. Carolyn King LYMPH # 0.8 103/ul Critically low 1.2-3.8 [facility] Comment on above: Performed By: #### C BC #### [facility] [address] [place] [address] Dr. Carolyn King Lymphocytes/100 WBC (Bld) 11.4 % Critically low 20.5-60.0 [facility] Comment on above: Performed By: #### C BC #### [facility] [address] [place] [address] Dr. Carolyn King MANUAL DIFF REQ NO Normal [facility] Comment on above: Performed By: #### C BC #### [facility] [address] [place] [address] Dr. Carolyn King MCH (RBC) [Entitic mass] 30.8 pg Normal 25.9-34.0 [facility] Comment on above: Performed By: #### C BC #### [facility] [address] [place] [address] Dr. Carolyn King MCHC (RBC) [Mass/Vol] 34.2 g/dL Normal 29.9-35.2 [facility] Comment on above: Performed By: #### C BC #### [facility] [address] [place] [address] Dr. Carolyn King MCV (RBC) [Entitic vol] 89.9 fL Normal 80.0-94.0 [facility] Comment on above: Performed By: #### C BC #### [facility] [address] [place] [address] Dr. Carolyn King MONO # 0.6 103/ul Normal 0.3-0.8 [facility] Comment on above: Performed By: #### C BC #### [facility] [address] [place] [address] Dr. Carolyn King Monocytes/100 WBC (Bld) 8.5 % Normal 1.7-12.0 [facility] Comment on above: Performed By: #### C BC #### [facility] [address] [place] [address] Dr. Carolyn King NEUT # 5.8 103/ul Normal 1.4-6.5 [facility] Comment on above: Performed By: #### C BC #### [facility] [address] [address] [address] Carolyn King Neutrophils/100 WBC (Bld) 79.1 % Critically high 43.0-75.0 [facility] Comment on above: Performed By: #### C BC #### [facility] [address] [address] [address] Carolyn King Platelet mean volume (Bld) [Entitic vol] 10.7 fL Normal 9.5-13.5 [facility] Comment on above: Performed By: #### C BC #### [facility] [address] [address] [address] Carolyn King PLT 235 103/ul Normal 150-450 [facility] Comment on above: Performed By: #### C BC #### [facility] [address] [address] [address] Carolyn King RBC 5.07 106/ul Normal 4.70-6.10 [facility] Comment on above: Performed By: #### C BC #### [facility] [id number] Carolyn King WBC 7.4 103/ul Normal 4.0-11.0 [facility] Comment on above: Performed By: #### C BC #### [facility] [address] [place] [address] ABD/PELVIS WO CONon [...] LAURY ZEPEDA Date: 2022-01-09 13:38 Normal [facility] ER URINE PROFILEon 2 Bilirubin Ql (U) Negative Normal NEGATIVE [facility] Comment on above: Performed By: #### I NSULIN #### [facility] [address] [place] [address] Dr. Carolyn King Clarity (U) CLEAR Normal CLEAR [facility] Comment on above: Performed By: #### I NSULIN #### [facility] [address] [address] [address] Carolyn King Color (U) LT. YELLOW Normal YELLOW [facility] Comment on above: Performed By: #### I NSULIN #### [facility] [address] [address] [address] Carolyn King ERUAHD A micrscopic examina tion will be performed if indicated. Normal [facility] Comment on above: Performed By: #### I NSULIN #### [facility] [address] [address] [address] Carolyn King Glucose Ql (U) Negative Normal NEGATIVE [facility] Comment on above: Performed By: #### I NSULIN #### [facility] [address] [place] [address] Dr. Carolyn King Hemoglobin Ql (U) MODERATE Abnormal NEGATIVE [facility] Comment on above: Performed By: #### I NSULIN #### [facility] [address] [place] [address] Dr. Carolyn King Ketones Ql (U) Negative Normal NEGATIVE [facility] Comment on above: Performed By: #### I NSULIN #### [facility] [address] [place] [address] Dr. Carolyn King LEUKOCYTES Negative Normal NEGATIVE [facility] Comment on above: Performed By: #### I NSULIN #### [facility] [address] [place] [address] Dr. Carolyn King Nitrite Ql (U) Negative Normal NEGATIVE [facility] Comment on above: Performed By: #### I NSULIN #### [facility] [address] [place] [address] Dr. Carolyn King pH (U) 6.0 [pH] Normal 5-9 [facility] Comment on above: Performed By: #### I NSULIN #### [facility] [address] [place] [address] Dr. Carolyn King SPEC GRAVITY 1.010 Normal 1.005-<=1. 025 [facility] Comment on above: Performed By: #### I NSULIN #### [facility] [address] [place] [address] Dr. Carolyn King UA PROTEIN Negative Normal NEGATIVE/ TRACE [facility] Comment on above: Performed By: #### I NSULIN #### [facility] [address] [place] [address] Dr. Carolyn King UR MICRO IND INDICATED Normal [facility] Comment on above: Performed By: #### I NSULIN #### [facility] [address] [place] [address] Dr. Carolyn King Urobilinogen Qn (U) 0.2 {Keren'U}/dL Normal 0.2 - 1. 0 [facility] Comment on above: Performed By: #### I NSULIN #### [facility] [address] [address] [address] Carolyn King LIPASEon 01-09-2022 Lipase [Catalytic activity/Vol] 98.0 U/L Normal 73.0-393.0 [facility] Comment on above: Performed By: #### I NSULIN #### [facility] [address] [place] [address] Dr. Carolyn King PROF 14(COMP METB)on 022 Albumin [Mass/Vol] 4.0 g/dL Normal 3.4-5.0 [facility] Comment on above: Performed By: #### I NSULIN #### [facility] [address] [place] [address] Dr. Carolyn King Albumin/Globulin [Mass ratio] 1.1 {ratio} Normal [facility] Comment on above: Performed By: #### I NSULIN #### [facility] [address] [place] [address] Dr. Carolyn King ALP [Catalytic activity/Vol] 112 U/L Normal 46-116 [facility] Comment on above: Performed By: #### I NSULIN #### [facility] [address] [place] [address] Dr. Carolyn King ALT [Catalytic activity/Vol] 27 U/L Normal 16-63 [facility] Comment on above: Performed By: #### I NSULIN #### [facility] [address] [place] [address] Dr. Carolyn King Anion gap [Moles/Vol] 14.9 mmol/L Normal [facility] Comment on above: Performed By: #### I NSULIN #### [facility] [address] [place] [address] Dr. Carolyn King AST [Catalytic activity/Vol] 22 U/L Normal 15-37 [facility] Comment on above: Performed By: #### I NSULIN #### [facility] [address] [place] [address] Dr. Carolyn King Bilirubin [Mass/Vol] 0.5 mg/dL Normal 0.2-1.0 [facility] Comment on above: Performed By: #### I NSULIN #### [facility] [address] [place] [address] Dr. Carolyn King Calcium [Mass/Vol] 9.1 mg/dL Normal 8.5-10.1 [facility] Comment on above: Performed By: #### I NSULIN #### [facility] [address] [place] [address] Dr. Carolyn King Chloride [Moles/Vol] 103 mmol/L Normal 98-107 [facility] Comment on above: Performed By: #### I NSULIN #### [facility] [address] [place] [address] Dr. Carolyn King CO2 [Moles/Vol] 26.0 mmol/L Normal 21.0-32.0 [facility] Comment on above: Performed By: #### I NSULIN #### [facility] [address] [place] [address] Dr. Carolyn King Creatinine [Mass/Vol] 1.09 mg/dL Normal 0.70-1.30 [facility] Comment on above: Performed By: #### I NSULIN #### [facility] [address] [place] [address] Dr. Carolyn King EGFR-AF SWEDISH >60 Normal >=60 [facility] Comment on above: Performed By: #### I NSULIN #### [facility] [address] [place] [address] Dr. Carolyn iKng EGFR-NON AF SWEDISH >60 Normal >=60 [facility] Comment on above: Performed By: #### I NSULIN #### [facility] [address] [place] [address] Dr. Carolyn King Globulin (S) [Mass/Vol] 3.8 g/dL Normal [facility] Comment on above: Performed By: #### I NSULIN #### [facility] [address] [place] [address] Dr. Carolyn King Glucose [Mass/Vol] 97 mg/dL Normal 74-106 [facility] Comment on above: Performed By: #### I NSULIN #### [facility] [address] [place] [address] Dr. Carolyn King Potassium [Moles/Vol] 3.9 mmol/L Normal 3.5-5.1 [facility] Comment on above: Performed By: #### I NSULIN #### [facility] [address] [place] [address] Dr. Carolyn King Protein [Mass/Vol] 7.8 g/dL Normal 6.4-8.2 [facility] Comment on above: Performed By: #### I NSULIN #### [facility] [address] [place] [address] Dr. Carolyn King Sodium [Moles/Vol] 140 mmol/L Normal 136-145 [facility] Comment on above: Performed By: #### I NSULIN #### [facility] [address] [place] [address] Dr. Carolyn King Urea nitrogen [Mass/Vol] 16.0 mg/dL Normal 7.0-18.0 [facility] Comment on above: Performed By: #### I NSULIN #### [facility] [address] [place] [address] Dr. Carolyn King Urea nitrogen/Creatinine [Mass ratio] 14.7 mg/mg Normal [facility] Comment on above: Performed By: #### I NSULIN #### [facility] [address] [place] [address] Dr. Carolyn King URINE MICROSCOPIC ONLYon BACTERIA NONE SEEN Normal NONE SEEN [facility] Comment on above: Performed By: #### I NSULIN #### [facility] [address] [place] [address] Dr. Carolyn King Bacteria identified Cx Nom (U) NOT INDICATED Normal [facility] Comment on above: Performed By: #### I NSULIN #### [facility] [address] [place] [address] Dr. Carolyn King CAST NONE SEEN Normal NONE SEEN [facility] Comment on above: Performed By: #### I NSULIN #### [facility] [address] [place] [address] Dr. Carolyn King Crystals LM Nom (Urine sed) NONE SEEN Normal NONE SEEN [facility] Comment on above: Performed By: #### I NSULIN #### [facility] [address] [address] [address] Carolyn King Epithelial cells LM Ql (Urine sed) NONE SEEN Normal NONE SEEN /RARE [facility] Comment on above: Performed By: #### I NSULIN #### [facility] [address] [address] [address] Carolyn King MUCOUS NONE SEEN Normal NONE SEEN [facility] Comment on above: Performed By: #### I NSULIN #### [facility] [address] [address] [address] Carolyn King RBC 2-5 Abnormal 0-2 [facility] Comment on above: Performed By: #### I NSULIN #### [facility] [address] [place] [address] Dr. Carolyn King WBC 0-2 Abnormal NONE SEEN [facility] Comment on above: Performed By: #### I NSULIN #### [facility] [address] [place] [address] Dr. Carolyn King US SINGLE QUAD RT [...] by: BANDAR QUEZADA Date: 2022-01-05 10:15 Normal [facility] NM HEPATOBILIARY SCAN W EFon 12-27-2021 SC HEPATOBILIARY SCAN W EF HISTORY: Right upper [...] by: LAURY SNYDER Date: 2021-12-27 12:16 Normal [facility] CT ABD/PELV W CONon 12-12-19 [...] by: LAURY ZEPEDA Date: 2021-12-11 07:30 Normal [facility] CREATININEon 12-09-2021 Creatinine [Mass/Vol] 0.98 mg/dL Normal 0.70-1.30 [facility] Comment on above: Performed By: #### I NSULIN #### [facility] [address] [address] [address] Carolyn King EGFR-AF SWEDISH >60 Normal >=60 [facility] Comment on above: Performed By: #### I NSULIN #### [facility] [address] [address] [address] Carolyn King EGFR-NON AF SWEDISH >60 Normal >=60 [facility] Comment on above: Performed By: #### I NSULIN #### [facility] [address] [address] [address] Carolyn King BN SPINE, LUMBOSACRAL; 2 OR 3 VIEWSon 11-08-2021 BN SPINE, LUMBOSACRAL; 2 OR 3 VIEWS Patient Name: JAY CARR STUDY: Lumbar spine dated 11/08/2021. INDICATION: AP/LAT M54.50: Lumbar back pain M48.062: Lumbar stenosis with neurogenic claudication COMPARISON: None. ACCESSION NUMBER(S): [id number] ORDERING CLINICIAN: KENTON LAWSON TECHNIQUE: AP and [...] above. Electronically signed by: BATSHEVA VIDAL MD [facility] Post Op (Orthopaedic Surgery )on 11-08-2021 Post [...] Work Phone: CBCon 09-29-2021 HCT Canceled Normal [facility] Comment on above: Order Comment: TEST CBC WAS CANCELLED, 09/29/2021 08:10 NO SPECIMEN RECEIVED IN LAB. Performed By: #### C BC ####[id number] [place] [address] HGB Canceled Normal [facility] Comment on above: Order Comment: TEST CBC WAS CANCELLED, 09/29/2021 08:10 NO SPECIMEN RECEIVED IN LAB. Performed By: #### C BC ####[id number] [place] [address] MCHC Canceled Normal [facility] Comment on above: Order Comment: TEST CBC WAS CANCELLED, 09/29/2021 08:10 NO SPECIMEN RECEIVED IN LAB. Performed By: #### C BC ####[id number] [place] [address] MCV Canceled Normal [facility] Comment on above: Order Comment: TEST CBC WAS CANCELLED, 09/29/2021 08:10 NO SPECIMEN RECEIVED IN LAB. Performed By: #### C BC ####[id number] [place] [address] NUCLEATED RBC Canceled Normal [facility] Comment on above: Order Comment: TEST CBC WAS CANCELLED, 09/29/2021 08:10 NO SPECIMEN RECEIVED IN LAB. Performed By: #### C BC ####[id number] [place] [address] PLT Canceled Normal [facility] Comment on above: Order Comment: TEST CBC WAS CANCELLED, 09/29/2021 08:10 NO SPECIMEN RECEIVED IN LAB. Performed By: #### C BC ####[id number] [place] [address] RBC Canceled Normal [facility] Comment on above: Order Comment: TEST CBC WAS CANCELLED, 09/29/2021 08:10 NO SPECIMEN RECEIVED IN LAB. Performed By: #### C BC ####[id number] [place] [address] RDW-CV Canceled Normal [facility] Comment on above: Order Comment: TEST CBC WAS CANCELLED, 09/29/2021 08:10 NO SPECIMEN RECEIVED IN LAB. Performed By: #### C BC ####[id number] [place] [address] WBC Canceled Normal [facility] Comment on above: Order Comment: TEST CBC WAS CANCELLED, 09/29/2021 08:10 NO SPECIMEN RECEIVED IN LAB. Performed By: #### C BC ####[id number] [place] [address] BASIC METABOLIC PANELon 04-0 ANION GAP Canceled Normal [facility] Comment on above: Order Comment: TEST BASIC METABOLIC PANEL WAS CANCELLED, 09/28/2021 04:56 Performed By: #### B MP ####[id number] [place] [address] BICARBONATE Canceled Normal [facility] Comment on above: Order Comment: TEST BASIC METABOLIC PANEL WAS CANCELLED, 09/28/2021 04:56 Performed By: #### B MP ####[id number] [place] [address] CALCIUM Canceled Normal [facility] Comment on above: Order Comment: TEST BASIC METABOLIC PANEL WAS CANCELLED, 09/28/2021 04:56 Performed By: #### B MP ####[id number] [place] [address] CHLORIDE Canceled Normal [facility] Comment on above: Order Comment: TEST BASIC METABOLIC PANEL WAS CANCELLED, 09/28/2021 04:56 Performed By: #### B MP ####[id number] [place] [address] CREATININE Canceled Normal [facility] Comment on above: Order Comment: TEST BASIC METABOLIC PANEL WAS CANCELLED, 09/28/2021 04:56 Performed By: #### B MP ####[id number] [place] [address] eGFR FEMALE Canceled Normal [facility] Comment on above: Order Comment: TEST BASIC METABOLIC PANEL WAS CANCELLED, 09/28/2021 04:56 Result Comment: CALC ULATIONS OF ESTIMATED GFR ARE PERFORMED USING THE 2020 CKD-EPI STUDY REFIT EQUATION WITHOUT THE RACE VARIABLE FOR THE IDMS-TRACEABLE CREATININE METHODS. https://jasn.asnjournals.org/content/early/ASN.70515 49115 Performed By: #### B MP ####[id number] [place] [address] eGFR MALE Canceled Normal [facility] Comment on above: Order Comment: TEST BASIC METABOLIC PANEL WAS CANCELLED, 09/28/2021 04:56 Result Comment: CALC ULATIONS OF ESTIMATED GFR ARE PERFORMED USING THE 2020 CKD-EPI STUDY REFIT EQUATION WITHOUT THE RACE VARIABLE FOR THE IDMS-TRACEABLE CREATININE METHODS. https://jasn.asnjournals.org/content//ASN.05147 23191 Performed By: #### B MP ####[id number] [place] [address] GLUCOSE Canceled Normal [facility] Comment on above: Order Comment: TEST BASIC METABOLIC PANEL WAS CANCELLED, 09/28/2021 04:56 Performed By: #### B MP ####[id number] [place] [address] POTASSIUM Canceled Normal [facility] Comment on above: Order Comment: TEST BASIC METABOLIC PANEL WAS CANCELLED, 09/28/2021 04:56 Performed By: #### B MP ####[id number] [place] [address] SODIUM Canceled Normal [facility] Comment on above: Order Comment: TEST BASIC METABOLIC PANEL WAS CANCELLED, 09/28/2021 04:56 Performed By: #### B MP ####[id number] [place] [address] UREA NITROGEN Canceled Normal [facility] Comment on above: Order Comment: TEST BASIC METABOLIC PANEL WAS CANCELLED, 09/28/2021 04:56 Performed By: #### B MP ####[id number] [place] [address] BASIC METABOLIC PANELon 04-0 Anion gap [Moles/Vol] 16 mmol/L Normal 10 - 20 [facility] Comment on above: Performed By: #### B MP #### [facility] [id number] [place] [address] Calcium [Mass/Vol] 9.0 mg/dL Normal 8.6 - 10.6 [facility] Comment on above: Performed By: #### B MP #### [facility] [id number] [place] [address] Chloride [Moles/Vol] 103 mmol/L Normal 98 - 107 [facility] Comment on above: Performed By: #### B MP #### [facility] [id number] [place] [address] Creatinine [Mass/Vol] 0.83 mg/dL Normal 0.50 - 1.30 [facility] Comment on above: Performed By: #### B MP #### [facility] [address] [place] [address] eGFR MALE >90 Normal >90 [facility] Comment on above: Result Comment: CALC ULATIONS OF ESTIMATED GFR ARE PERFORMED USING THE 2020 CKD-EPI STUDY REFIT EQUATION WITHOUT THE RACE VARIABLE FOR THE IDMS-TRACEABLE CREATININE METHODS. https://jasn.asnjournals.org/content/early//ASN.40871 42423 Performed By: #### B MP #### [facility] [address] [place] [address] Glucose [Mass/Vol] 141 mg/dL High 74 - 99 [facility] Comment on above: Performed By: #### B MP #### [facility] [address] [place] [address] HCO3 (Bld) [Moles/Vol] 24 mmol/L Normal 21 - 32 [facility] Comment on above: Performed By: #### B MP #### [facility] [address] [place] [address] Potassium [Moles/Vol] 4.4 mmol/L Normal 3.5 - 5.3 [facility] Comment on above: Performed By: #### B MP #### [facility] [address] [place] [address] Sodium [Moles/Vol] 139 mmol/L Normal 136 - 145 [facility] Comment on above: Performed By: #### B MP #### [facility] [address] [place] [address] Urea nitrogen [Mass/Vol] 13 mg/dL Normal 6 - 23 [facility] Comment on above: Performed By: #### B MP #### [facility] [address] [place] [address] CBCon 09-27-2021 HCT Canceled Normal [facility] Comment on above: Order Comment: TEST URINALYSIS WAS CANCELLED, 09/19/2021 12:02 DUPLICATE ORDER. Performed By: #### U A #### [facility] [address] [place] [address] HGB Canceled Normal [facility] Comment on above: Order Comment: TEST URINALYSIS WAS CANCELLED, 09/19/2021 12:02 DUPLICATE ORDER. Performed By: #### U A #### [facility] [address] [place] [address] MCHC Canceled Normal [facility] Comment on above: Order Comment: TEST URINALYSIS WAS CANCELLED, 09/19/2021 12:02 DUPLICATE ORDER. Performed By: #### U A #### [facility] [address] [place] [address] MCV Canceled Normal [facility] Comment on above: Order Comment: TEST URINALYSIS WAS CANCELLED, 09/19/2021 12:02 DUPLICATE ORDER. Performed By: #### U A #### [facility] [address] [place] [address] NUCLEATED RBC Canceled Normal [facility] Comment on above: Order Comment: TEST URINALYSIS WAS CANCELLED, 09/19/2021 12:02 DUPLICATE ORDER. Performed By: #### U A #### [facility] [address] [place] [address] PLT Canceled Normal [facility] Comment on above: Order Comment: TEST URINALYSIS WAS CANCELLED, 09/19/2021 12:02 DUPLICATE ORDER. Performed By: #### U A #### [facility] [address] [place] [address] RBC Canceled Normal [facility] Comment on above: Order Comment: TEST URINALYSIS WAS CANCELLED, 09/19/2021 12:02 DUPLICATE ORDER. Performed By: #### U A #### [facility] [address] [place] [address] RDW-CV Canceled Normal [facility] Comment on above: Order Comment: TEST URINALYSIS WAS CANCELLED, 09/19/2021 12:02 DUPLICATE ORDER. Performed By: #### U A #### [facility] [address] [place] [address] WBC Canceled Normal [facility] Comment on above: Order Comment: TEST URINALYSIS WAS CANCELLED, 09/19/2021 12:02 DUPLICATE ORDER. Performed By: #### U A #### [facility] [address] [place] [address] Erythrocyte distribution width (RBC) [Ratio] 13.1 % Normal 11.5 - 14.5 [facility] Comment on above: Performed By: #### U A #### [facility] [address] [place] [address] Hematocrit (Bld) [Volume fraction] 41.3 % Normal 41.0 - 52.0 [facility] Comment on above: Performed By: #### U A #### [facility] [address] [place] [address] Hemoglobin (Bld) [Mass/Vol] 14.1 g/dL Normal 13.5 - 17.5 [facility] Comment on above: Performed By: #### U A #### [facility] [address] [place] [address] MCHC (RBC) [Mass/Vol] 34.1 g/dL Normal 32.0 - 36.0 [facility] Comment on above: Performed By: #### U A #### [facility] [address] [place] [address] MCV (RBC) [Entitic vol] 93 fL Normal 80 - 100 [facility] Comment on above: Performed By: #### U A #### [facility] [address] [place] [address] NUCLEATED RBC 0.0 /100 WBC Normal 0.0-0.0 [facility] Comment on above: Performed By: #### U A #### [facility] [address] [place] [address] Platelets (Bld) [#/Vol] 217 10*3/uL Normal 150 - 450 [facility] Comment on above: Performed By: #### U A #### [facility] [address] [place] [address] RBC 4.42 x10E12/L Low 4.50 - 5.90 [facility] Comment on above: Performed By: #### U A #### [facility] [address] [place] [address] WBC (Bld) [#/Vol] 13.6 10*3/uL High 4.4 - 11.3 [facility] Comment on above: Performed By: #### U A #### [facility] [address] [place] [address] Daily Progress Note-Orthopae dicson 09-27-2021 Daily Progress Note-Orthopaedics Service: Orthopaedics Subjective Data: JAY CARR is a 61 year old Male who is Hospital Day # 2 and POD #1 for 1. XLIF L3/4, 4/5;2. Navigated percutaneous PSIF L3-5. Patient resting comfortably in bed. Pain well controlled. Denies CP, SOB, F/C, N/V. No new N/T. Objective Data: Objective Information: T PRBPMAPSpO2 [id number]/7598% Date/Time09/27 5: 5: 5: 5: 5:39 Range(36.5C [...] Recent Arterial Blood Gas Results 09/26/2021 12:37 [id number] pH7.37 [id number] Base Excess0.8null Assessment and Plan: Code Status: Code StatusFull Code Assessment: 61 y/o male s/p L3/4-4/5 XLIF, L3-5 perc PSIF on 09/26/[address] Richardson, doing well. Plan: - WB status: WBAT, no excessive bending/twisting - DVT ppx: SCDs + Teds at all times while in bed, ambulation - Diet: Clear liquid diet, ADAT to regular - BRICKLAYER PAVING BRICK => PO pain medication per pain protocol [...] Timothy Steinberg M.D. Orthopaedic Surgery, PGY-2 Pager: [phone] Orthopaedic Spine Team Brannon Steinberg, PGY-2 [phone] - 1st call Orquidea Akbar PGY-4 [phone] - 2nd call Available via [employer] After 5pm-7am, weekends, holidays please page [phone] for booster station operator resident for urgent questions/concerns. Attestation: Note [...] the note. I personally evaluated the patient [id number] Electronic Signatures: Sal Richardson) (Signed 29-Sep-2021 11:37) Authored: Note Completion Co-Signer: Service, Subjective Data, Objective Data, Assessment and Plan, Note Completion Timothy Steinberg (Resident)) (Signed 27-Sep-2021 06:49) Authored: Service, Subjective Data, Objective Data, Assessment and Plan, Note Completion Last Updated: 29-Sep-2021 11:37 by Sal Richardson) Normal [facility] Order Reconciliationon 09-27 Order Reconciliation [...] unarousable, and respiratory rate lessClinician Notes: HOLD BRICKLAYER PAVING BRICK Infusion and notify H.O. immediately 26-Sep-2021 15:16 [...] at Discharge: (more content not included)... Normal [facility] PT Evaluation r2-me-scedthez t - co-tx c/ OT for maximized saon 09-27-2021 PT Evaluation [id number] - co-tx c/ OT for maximized sa Rehab: Info: Mode of Treatmentco-treatment; physical therapy; co-tx c/ OT for maximized safety and mobility Time IN10:00 Time OUT10:27 Total Treatment [id number] Patient in ... at end of sessionchair; alarm on Communicated with ... at end of sessionbedside nurse Patient Effortexcellent Symptoms Noted During/After Treatmentnone Patient Profile Reviewedyes Onset of Illness/Injury or Date of [id number] Reason for ReferralXLIF L3/4, 4/5;2. Navigated percutaneous [...] Mobility/Tone: Bed Mobility Assessment/Interventions supine to sit Kkbgqb-tn-Gka Beadle (Bed Mobility)standby assist; 1 person assist Assistive Device (Bed Mobility)bed rails Comment, Bed MobilityPt. educated on log roll Transfer Assessment/Interventions sit to stand transfer; stand to sit transfer; bed to chair transfer Bed-Chair Beadle (Transfers)1 person assist; standby assist; verbal cues Sit-Stand Beadle (Transfers)standby assist; 1 person assist Sit-Stand Assistive Device (Transfers)no AD Stand-Sit Beadle (Transfers)standby assist; 1 person assist Stand-Sit Assistive [...] Motor: Sitting, Static (Balance)SBA Sitting, Dynamic (Balance)SBA Mjx-bu-Rcfbo (Balance)SBA Standing, Static (Balance)SBA Standing, Dynamic (Balance)SBA [...] goals Thera (more content not included)... Normal [facility] ARTERIAL FULL PANELon 2021 Anion gap [Moles/Vol] 11 mmol/L Normal 10 - 25 [facility] Comment on above: Performed By: #### A FPA4 #### [facility] [address] [place] [address] BASE EXCESS-BLOOD 0.8 mmol/L Normal -2.0 - 3.0 [facility] Comment on above: Performed By: #### A FPA4 #### [facility] [address] [place] [address] BICARB, CALCULATED 26.6 mmol/L High 22.0 - 26.0 [facility] Comment on above: Performed By: #### A FPA4 #### [facility] [address] [place] [address] CALCIUM,IONIZED 1.15 mmol/L Normal 1.10 - 1.33 [facility] Comment on above: Performed By: #### A FPA4 #### [facility] [address] [place] [address] Chloride [Moles/Vol] 102 mmol/L Normal 98 - 107 [facility] Comment on above: Performed By: #### A FPA4 #### [facility] [address] [place] [address] Glucose [Mass/Vol] 114 mg/dL High 74 - 99 [facility] Comment on above: Performed By: #### A FPA4 #### [facility] [address] [place] [address] Hematocrit (Bld) [Volume fraction] 42.0 % Normal 41.0 - 52.0 [facility] Comment on above: Performed By: #### A FPA4 #### [facility] [address] [place] [address] Hemoglobin (Bld) [Mass/Vol] 14.1 g/dL Normal 13.5 - 17.5 [facility] Comment on above: Performed By: #### A FPA4 #### [facility] [address] [place] [address] Lactate [Moles/Vol] 1.3 mmol/L Normal 0.4 - 2.0 [facility] Comment on above: Performed By: #### A FPA4 #### [facility] [address] [place] [address] OXY HGB 97.5 % Normal 94.0 - 98.0 [facility] Comment on above: Performed By: #### A FPA4 #### [facility] [address] [place] [address] Oxygen (Bld) [Partial pressure] 160 mm[Hg] High 85 - 95 [facility] Comment on above: Performed By: #### A FPA4 #### [facility] [address] [place] [address] PATIENT TEMPERATURE 37.0 degrees C Normal [facility] Comment on above: Result Comment: NOTE : PATIENT RESULTS ARE NOT CORRECTED FOR TEMPERATURE. Performed By: #### A FPA4 #### [facility] [address] [place] [address] PCO2 46 mmHg High 38 - 42 [facility] Comment on above: Performed By: #### A FPA4 #### [facility] [address] [place] [address] pH (Bld) 7.37 [pH] Low 7.38 - 7.42 [facility] Comment on above: Performed By: #### A FPA4 #### [facility] [address] [place] [address] Potassium [Moles/Vol] 4.8 mmol/L Normal 3.5 - 5.3 [facility] Comment on above: Performed By: #### A FPA4 #### [facility] [address] [place] [address] SO2 100 % Normal 94 - 100 [facility] Comment on above: Performed By: #### A FPA4 #### [facility] [address] [place] [address] Sodium [Moles/Vol] 135 mmol/L Low 136 - 145 [facility] Comment on above: Performed By: #### A FPA4 #### [facility] [address] [place] [address] Admission Risk Screen - Adul ton 09-26-2021 [...] AlertFor Ebola-like Symptoms: Isolate Patient and Notify Provider/Janitor Cleaner For Contact: Notify Provider/Janitor Cleaner Advance Directive: Advance Directive/DNRno Advance Directive Information [...] Communicatenone Learning Preferencesaudio Cultural Considerationsnone Developmental Considerationsnone Adventist Considerationsnone Learning Assessment (Other Learner): Other learner availableno Depression Screen: During the past month, have you often been bothered by feeling down, depressed or hopelessno During the past month, have you often had little interest or pleasure in doing thingsno Have you had any thoughts of harming anyone elseno [place] Suicide: Risk Screen Not Applicable/Able to Answerable to be screened In the Past Month: Have you wished you were or could go to sleep and not wake upno(1) In the Past Month: Have you had any actual thoughts of killing yourself no(1) Lifetime: Have you ever done, started to do, or prepared to do anything to end your lifeno(1) [place] Suicide Risknegative Adult Nutrition Screen: Have you [...] Spiritual Screen: Are there any cultural, spiritual, adventism practices/values/needs that are important for us to knowno CAGE: Is this an injured patient at a Trauma Center [place] [place] /[place]): no Vaccinations: Vaccination - Influenza Vaccination Screen: Is it flu season (between and September 21)Yes Screening for identified contraindications to influenza vaccinationpatient already received vaccine this season Vaccination - Pneumonia Vaccination Screen: Patient has received a previous pneumonia vaccine:no/unknown... Immunocompetent persons with underlying chronic conditions or r (more content not included)... Normal [facility] Daily Progress Note-Orthopae kaison 09-26-2021 [...] Recent Arterial Blood Gas Results 09/26/2021 12:37 [id number] pH7.37 gND220 YU3457 Base Excess0.8null Assessment and Plan: Code Status: Code StatusFull Code Assessment: 61 y/o male s/p L3/4-4/5 XLIF, L3-5 perc PSIF on 09/26/[address] Richardson, doing well. Plan: - WB status: WBAT, no excessive bending/twisting - DVT ppx: SCDs + Teds at all times while in bed, ambulation - Diet: Clear liquid diet, ADAT to regular - BRICKLAYER PAVING BRICK => PO pain medication per pain protocol - 24 hr perioperative abx: clinda x 4 doses - FEN: Continue NS at 100cc/hr; HLIV with good PO intake - Bowel Regimen: Colace, Dulcolax, Senna - PT/OT consult - Continue home medications - Discontinue goodrich catheter POD #1 - Decadron 4mg q6hr x4 doses Dispo: to VERONICA Steinberg M.D. Orthopaedic Surgery, PGY-2 Pager: [phone] Orthopaedic Spine Team Brannon Maryan, PGY-2 [phone] - 1st call Orquidea Akbar, PGY-4 72908 - 2nd call Available via Doc Halo After 5pm-7am, weekends, holidays please page [phone] for booster station operator resident for urgent questions/concerns. Attestation: Note [...] the note. I personally evaluated the patient [id number] Electronic Signatures: Sal Richardson) (Signed 29-Sep-2021 11:38) Authored: Note Completion Co-Signer: Service, Subjective Data, Objective Data, Assessment and Plan, Note Completion Timothy Steinberg (Resident)) (Signed 26-Sep-2021 15:36) Authored: Service, Subjective Data, Objective Data, Assessment and Plan, Note Completion Last Updated: 29-Sep-2021 11:38 by Sal Richardson) Normal [facility] Discharge Planning Nhju1yl 0 09-26-2021 Discharge Planning Note2 Discharge Planning: Planned Dispositionhome Anticipated Discharge [id number] Discharge Planning 09/27/21 1335 Transitional Care Coordination Progress Note: TCC verified demo is correct. lives at home with . pcp dania armstrong. received covid vaccine x2 and booster x1. feels safe to return home today Patient discussed during interdisciplinary rounds. Team members present: MD/ROTARY DRIER, TCC, Plan per Medical/Surgical team: patient goodrich out. relay man changed to oral with pain control. MR for dc after working with PT OT today Status: inpatient Payor source: commercial Discharge disposition: home no needs per PT OT eval Potential Barriers: ADOD: today Calli Jones RN TCC 09/27/21 Patient discharged home with . Heather Foster RN Assessment: Discharge Planning Assessment [id number] Discharge Planning Assessment Completed bycalli jones RN TCC Primary Contact Name and Numberdawsonfe [phone] Prior Level of FunctioningNA Lives Withspouse(1) Living Arrangementshouse(1) Stated Reason for Admissionback and hip pain(1) Arrived [place] (1) PCPDania Armstrong [facility] [place] [facility] Falls/ Injury/ Need Assist with AmbulationNA DME Supplier Name/NumberNA Home Care Agency/Support ServicesNA Diabetic/Supplies NeededNA Hemodialysis ScheduleNA Resource/Environmental Concernsnone(1) Anticipated Transition [place](1) Services Anticipated at Transitionnon(1) Readmission Within the [...] (diet, activity, pt instructions)yes Discharge Documentation: Discharge/Transfer Date/Gmgr07-One-7565 17:00 Discharged Accompanied Byspouse Discharge Modewheelchair Transportation Methodprivate car Code StatusCode Status order at time of discharge: Full Code [place] DNR Form Sent with Patient and/or Familyn/a Valuables/Medications/Be longings Returnedyes [facility] Electronic Signatures: HEDY SHEPPARD (RN) (Signed 26-Sep-2021 21:59) Authored: Discharge Planning, Assessment, Discharge Documentation Heather Foster) (Signed 27-Sep-2021 17:12) Authored: Discharge Planning, Nursing Checklist, Discharge Documentation Calli Jones) (Signed 27-Sep-2021 13:35) Authored: Discharge Planning, Assessment Last Updated: 27-Sep-2021 17:12 by Heather Foster (ALICE) References: 1. Data Referenced From Patient Profile - Adult v2 26-Sep-2021 21:07 Normal [facility] Discharge [id number] 022 Discharge Profile2 Discharge Orders: Anticipated Discharge Date: Anticipated Discharge [id number] Problem List: Additional Dx: Lumbar radicular pain: Catalog Name: Radiculopathy, lumbar region Significant Events: right knee replacement: Past Surgical History biopsy on back: Past Surgical History left foot: Past Surgical History right foot: Past Surgical History covid in April 2021: Past Medical History lupus: Past Medical History GERD: Past Medical History HTN: Past Medical History Hospital Providers: Provider RoleProvider Name Dania Colindres Nicholas DNAR: Code Status at Discharge: [...] HAVE ANTONIO REMOVED IN 3 WKS. [facility] [address] [facility] 5TH FLOOR ON 10/18/2021 AT 0930 WITH [facility] S[facility]IAGO. REHAB FACILITIES OR HOME CARE MAY REMOVE ANTONIO OR SUTURES. Wound Care 2: Wound SiteBACK (Lumbar Spine) Wound Typesurgical incision Change Dressingdaily Cleanse Withsoap and water Cover Withabdominal dressing Tape Withpaper tape Instructionsno lotions, creams, or tub soaks Other InstructionsPLEASE HAVE ANTONIO REMOVED IN 3 WKS. AT [facility] [address] [facility] 5TH FLOOR ON 10/18/2021 AT [...] XLIF, L3-5 PSIF on 09/[address] Rcihardson. On the day of surgery, patient was [...] floor. Patient was initially started on dilaudid BRICKLAYER PAVING BRICK x24 hours and then transitioned to an [...] 27-Sep-2021 13:45:17 Appointments: Follow-Up Appointment 01: Physician/Dept/ServiceDr . Sal Richardson/ Orthopaedic Surgery/ Spine Reason for ReferralPostoperative Follow-Up Appointment Call to Schedule in6 weeks, PLEASE CALL [phone] TO SCHEDULE YOUR AMBER (more content not included)... Normal [facility] [place] [place] [facility] [place] [facility] [place] PREOPERATIVE DIAGNOSIS: Spinal stenosis and spondylolisthesis L3-4 and L4-5 in a patient with unrelenting claudication and radiculopathy. POSTOPERATIVE DIAGNOSIS: Spinal stenosis and spondylolisthesis L3-4 and L4-5 in a patient with unrelenting claudication and radiculopathy. OPERATION/PROCEDURE: Anterior lumbar interbody fusion by extreme lateral approach at L3-4 and L4-5 with use of interbody cage device x2. SURGEON: Sal Richardson MD. TECHNICAL WRITER AND EDITOR(S): paperhanger assistant: Cb Casanova PA-C. Second assistant to the president: Brannon Steinberg, second resident. ANESTHESIA: ESTIMATED BLOOD [...] Deep layers were repaired using 0 Vicryl suctqs-lp-aupxs sutures, deep dermal layer was repaired using 2-0 Vicryl sutures, and the skin was repaired using antonio. Dry sterile dressing was ap (more content not included)... Normal [facility] Operative Reports - [facility] [place] PREOPERATIVE DIAGNOSIS: POSTOPERATIVE DIAGNOSIS: OPERATION/PROCEDURE: Posterior [...] Deep layers were repaired using 0 Vicryl viupuk-ux-lbava sutures, deep dermal layer was repaired using [...] instrumentation and fusion. SURGEON: Sal Richardson MD. TECHNICAL WRITER AND EDITOR(S): ANESTHESIA: This is part 2 of a two-staged procedure. Part 1 was dictated in dictation #[id number]. Refer to dictation #[id number] for all details regarding the first part of the surgery. Sal Richardson MD EST EST DICTATION NUMBER: [id number] INTERNAL JOB NUMBER: [id number] CC: Sal Richardson MD, Electronic Signatures: Sal Richardson) (Signed on 03-Oct-2021 12:03) Authored Unsigned, Draft (SYS GENERATED) (Entered on 30-Sep-2021 07:37) Entered Last Updated: 03-Oct-2021 12:03 by Sal Richardson) [facility] Order Reconciliationon 09-26 Order Reconciliation Page 1 Admission Reconciliation Document Reconciliation Type: Admission from OR requested on behalf of Timothy Steinberg (Resident) done by Timothy Steinberg (Resident)) Admission from OR - Reconciliation: 26-Sep-2021 18:10 by: Timothy Steinberg (Resident)) Home MedicationsEnteredLast Dose TakenReconciled with current Order Reconciliation Comment/ Additional Information hydroxychloroquine 200 mg oral tablet 1 tab(s) oral 2 times a [id number]-Sep-2021 Hydroxychloroquine - PEDS Tablet (PLAQUENIL)DOSE = 200 mg Oral 2 Times a Dayhydroxychloroquine 200 mg oral tablet continued as the inpatient order Hydroxychloroquine - PEDS irbesartan 300 mg oral tablet 1 tab(s) oral once a [id number]-863 2 Reviewed and Held methocarbamol 500 mg oral tablet 2 tab(s) oral every 8 -Qiq-138826-Sep-2021 Reviewed and Held NIFEdipine 30 mg oral tablet, extended release 1 tab(s) oral once a day [id number] NIFEdipine (PROCARDIA XL) Extended Release Tablet, Extended ReleaseDOSE = 30 mg Oral DailyNIFEdipine 30 mg oral tablet, extended release continued as the inpatient order NIFEdipine (PROCARDIA XL) Extended Release pantoprazole 40 mg oral delayed release tablet 1 tab(s) oral once a day [id number] Pantoprazole Enteric Coated Tablet (PROTONIX)DOSE = 40 mg Oral Dailypantoprazole 40 mg oral delayed release tablet continued as the inpatient order Pantoprazole tiZANidine 4 mg oral tablet 1 oral [id number]-8799 Reviewed and Held Vitamin C 1 3 times a arx53-Ogi-066278-Lpy-256 2 Reviewed and Held Vitamin D3 1 3 times a wce77-Yov-969884-Llz-540 2 Reviewed and Held Zinc 140 mg (as elemental zinc 50 mg) oral tablet 1 tab(s) oral once a day [id number]-3126 Reviewed and Held Additional Current Orders Acetaminophen [...] of 4 mg regardless of dose. HYDROmorphone BRICKLAYER PAVING BRICK 25 mg/ NaCL 0.9% 50 mL (DILAUDID IV BRICKLAYER PAVING BRICK)DEMAND/ BRICKLAYER PAVING BRICK Dose = 0.2 mgDELAY/ Lockout Time Period [...] unarousable, and respiratory rate lessClinician Notes: HOLD BRICKLAYER PAVING BRICK Infusion and notify H.O. immediately Ondansetron Injectable [...] hours: Do NOT use with Bisacodyl. Normal [facility] Patient Profile - Adult v2on 09-26-2021 Patient Profile - Adult v2 Profile: Initial Info: How to be AddressedPaul(1) Spoken Language PreferredEnglish (1) Stated Reason for Admissionback and hip pain Wants Family/Rep Notified of Admissionno Notify PCPdo not notify PCP [facility] [place] [place] [place] Patient Belongingsremains with patient Patient Belongings Remaining [...] From 1. Vital Signs 26-Sep-2021 07:09 Normal [facility] Patient Profile - Preop v3on 09-26-2021 Patient Profile - Preop v3 Patient Profile - Preop: Initial Info: Patient DemographicsName: JAY CARR Date: 1960 Address: [address] [place] [address] [place], [address] Primary Phone [phone] How to be AddressedPaul Spoken Language PreferredEnglish [...] Withspouse Living Arrangementshouse Resource/Environmental Concernsnone Anticipated Transition [place] Services Anticipated at Transitionnone Tobacco Use: Tobacco [place] Pre-op Checklist: Arrival [id number] NPOyes ID Band On Patientpatient ID (name), [...] 26-Sep-2021 07:11 by Maisha Meyer (ALICE) Normal [facility] CORONAVIRUS 2019, SCREEN ASY MPTOMATICon 09-25-2021 SARS-CoV-2 (COVID-19) RNA LU+probe Ql (Unsp spec) Not detected Normal Not Detected [facility] Comment on above: Result Comment: [...] patient management decisions. Fact sheet for providers: https://www.fda.gov/media/627375/download Fact sheet for patients: https://www.fda.gov/media/582095/download This test has received FDA Emergency Use Authorization (EUA) and has been verified by [facility] ([facility]). This test is only authorized for the duration of time that circumstances exist to justify the authorization of the emergency use of in vitro diagnostic tests for the detection of SARS-CoV-2 virus and/or diagnosis of COVID-19 infection under section 564(b)(1) of the Act, 21 U.S.C. 360bbb-3(b)(1), unless the authorization is terminated or revoked sooner. [facility] is certified under CLIA-88 as qualified to perform high complexity testing. Testing is performed in the [facility] laboratories located at [address] [place] [address]. Performed By: #### U ARFX #### [place] [address] Lab Specimen Source Nasal, Nasopharyngeal Normal [facility] Comment on above: Performed By: #### U ARFX #### [place] [address] Covid 19 Resultson 2 SARS-CoV-2 (COVID-19) RNA [...] You may also be contacted by the [facility] to see if any of your [...] or Naproxen (Aleve) can also be used. Owlk-eya-spozksb cough and cold medicines can be used according to the instructions on the package. Some sidk-sgr-mvnjxea medicines also contain acetaminophen. Make sure you [...] water are not available, use alcohol-based hand cloth desizing range operator chief. Avoid touching your eyes, nose, and mouth [...] 24 mary (more content not included)... Normal [facility] COAGULATION SCREENon 022 aPTT Coag (Bld) [Time] 34 s Normal 26 - 39 [facility] Comment on above: Result Comment: THE APTT IS NO LONGER USED FOR MONITORING UNFRACTIONATED HEPARIN THERAPY. FOR MONITORING HEPARIN THERAPY, USE THE HEPARIN ASSAY. Performed By: #### U ARFX #### [facility] [address] [place] [address] PT Coag (PPP) [Time] 11.1 s Normal 9.8 - 13.4 [facility] Comment on above: Performed By: #### U ARFX #### [facility] [address] [place] [address] PT, INR 1.0 Normal 0.9 - 1.1 [facility] Comment on above: Performed By: #### U ARFX #### [facility] [address] [place] [address] Laboratory - Blood bankon ABO group Nom [...] SCREEN PATIENT: JAY CARR LOCATION: [facility] STOLL#: [id number] : 62 AGE: SEX: M ORDERED BY: SAL RICHARDSON SOURCE: ANTERIOR NARES COLLECTED: 09/19/21 10:10 ANTIBIOTICS AT BRAEDEN.: RECEIVED : 09/19/21 12:47 SITE: Nasal R E S U L T S STAPH/MRSA SCREEN FINAL 09/20/21 13:57 NO Staphylococcus aureus ISOLATED. Normal [facility] Comment on above: Performed By: #### S TAPH #### [facility] [address] [place] [address] TYPE + SCREENon 09-19-2021 ABO TYPE O Normal [facility] Comment on above: Performed By: #### T +S #### [facility] [address] [place] [address] RH TYPE Negative Normal [facility] Comment on above: Performed By: #### T +S #### [facility] [address] [place] [address] URINALYSISon 09-19-2021 Appearance (U) Canceled Normal [facility] Comment on above: Order Comment: TEST URINALYSIS WAS CANCELLED, 09/19/2021 12:02 DUPLICATE ORDER. Performed By: #### U A #### [facility] [address] [place] [address] ASCORBIC ACID Canceled Normal [facility] Comment on above: Order Comment: TEST URINALYSIS WAS CANCELLED, 09/19/2021 12:02 DUPLICATE ORDER. Result Comment: Conc entrations > = 20 mg/dL of ascorbic acid can be expected to cause strong interference in the reactions testing for glucose, nitrite and blood. It is recommended to discontinue Vitamin C administration and retest in 10 hours. Performed By: #### U A #### [facility] [address] [place] [address] Bilirubin Ql (U) Canceled Normal [facility] Comment on above: Order Comment: TEST URINALYSIS WAS CANCELLED, 09/19/2021 12:02 DUPLICATE ORDER. Performed By: #### U A #### [facility] [address] [place] [address] Color (U) Canceled Normal [facility] Comment on above: Order Comment: TEST URINALYSIS WAS CANCELLED, 09/19/2021 12:02 DUPLICATE ORDER. Performed By: #### U A #### [facility] [address] [place] [address] Glucose Ql (U) Canceled Normal [facility] Comment on above: Order Comment: TEST URINALYSIS WAS CANCELLED, 09/19/2021 12:02 DUPLICATE ORDER. Performed By: #### U A #### [facility] [address] [place] [address] Hemoglobin Ql (U) Canceled Normal [facility] Comment on above: Order Comment: TEST URINALYSIS WAS CANCELLED, 09/19/2021 12:02 DUPLICATE ORDER. Performed By: #### U A #### [facility] [address] [place] [address] Ketones Ql (U) Canceled Normal [facility] Comment on above: Order Comment: TEST URINALYSIS WAS CANCELLED, 09/19/2021 12:02 DUPLICATE ORDER. Performed By: #### U A #### [facility] [address] [place] [address] Leukocyte esterase Test strip Ql (U) Canceled Normal [facility] Comment on above: Order Comment: TEST URINALYSIS WAS CANCELLED, 09/19/2021 12:02 DUPLICATE ORDER. Performed By: #### U A #### [facility] [address] [place] [address] Nitrite Ql (U) Canceled Normal [facility] Comment on above: Order Comment: TEST URINALYSIS WAS CANCELLED, 09/19/2021 12:02 DUPLICATE ORDER. Performed By: #### U A #### [facility] [address] [place] [address] pH Canceled Normal [facility] Comment on above: Order Comment: TEST URINALYSIS WAS CANCELLED, 09/19/2021 12:02 DUPLICATE ORDER. Performed By: #### U A #### [facility] [address] [place] [address] Protein Ql (U) Canceled Normal [facility] Comment on above: Order Comment: TEST URINALYSIS WAS CANCELLED, 09/19/2021 12:02 DUPLICATE ORDER. Performed By: #### U A #### [facility] [address] [place] [address] Specific gravity (U) [Rel density] Canceled Normal [facility] Comment on above: Order Comment: TEST URINALYSIS WAS CANCELLED, 09/19/2021 12:02 DUPLICATE ORDER. Performed By: #### U A #### [facility] [address] [place] [address] UROBILINOGEN Canceled Normal [facility] Comment on above: Order Comment: TEST URINALYSIS WAS CANCELLED, 09/19/2021 12:02 DUPLICATE ORDER. Performed By: #### U A #### [facility] [address] [place] [address] URINALYSIS WITH CULTURE IF I NDICATEDon 09-19-2021 Appearance (U) CLEAR Normal CLEAR [facility] Comment on above: Performed By: #### U ARFX #### [facility] [address] [place] [address] Bilirubin Ql (U) Negative Normal NEGATIVE [facility] Comment on above: Performed By: #### U ARFX #### [facility] [address] [place] [address] Color (U) YELLOW Normal STRAW,YELL OW [facility] Comment on above: Performed By: #### U ARFX #### [facility] [address] [place] [address] Glucose Ql (U) Negative Normal NEGATIVE [facility] Comment on above: Performed By: #### U ARFX #### [facility] [address] [place] [address] Hemoglobin Ql (U) Negative Normal NEGATIVE [facility] Comment on above: Performed By: #### U ARFX #### [facility] [address] [place] [address] Ketones Ql (U) Negative Normal NEGATIVE [facility] Comment on above: Performed By: #### U ARFX #### [facility] [address] [place] [address] Leukocyte esterase Test strip Ql (U) Negative Normal NEGATIVE [facility] Comment on above: Performed By: #### U ARFX #### [facility] [address] [place] [address] Nitrite Ql (U) Negative Normal NEGATIVE [facility] Comment on above: Performed By: #### U ARFX #### [facility] [address] [place] [address] pH (U) 6.0 [pH] Normal 5.0 - 8.0 [facility] Comment on above: Performed By: #### U ARFX #### [facility] [address] [place] [address] Protein Ql (U) Negative Normal NEGATIVE [facility] Comment on above: Performed By: #### U ARFX #### [facility] [address] [place] [address] Specific gravity (U) [Rel density] 1.016 Normal 1.005 - 1.035 [facility] Comment on above: Performed By: #### U ARFX #### [facility] [address] [place] [address] Urobilinogen (U) [Mass/Vol] mg/dL Normal 0.0 - 1.9 [facility] Comment on above: Performed By: #### U ARFX #### [facility] [address] [place] [address] Color (U) YELLOW See Below [facility]-Anesthesiol ogy-Ctr [...] may no (more content not included)... Normal [place] Office Visiton 08-03-2021 Follow-up visit Diagnoses/Problems Lumbar [...] Hold For - Scheduling,Retrospective Authorization Requested for: [id number] Lumbar back pain, Lumbar stenosis with neurogenic [...] disorder with myelopathy. COMPARISON: None. ACCESSION NUMBER(S): [id number] ORDERING CLINICIAN: SAL RICHARDSON FINDINGS: C-spine, two views Anterior spinal fusion C5-C7 with intact hardware. There is normal alignment. No fracture. No degenerative changes seen. IMPRESSION: Anterior spinal fusion C5-C7 without evidence hardware failure Electronically signed by: JULIA ARAIZA MD Normal [facility] [place][note 2] CORONAVIRUS 2018, SCREEN ASY MPTOMATICon 07-05-2021 DATE OF SYMPTOM ONSET [[id number]]? Canceled Normal [facility] Comment on above: Order Comment: TEST CORONAVIRUS 2018, SCREEN ASYMPTOMATIC WAS CANCELLED, 07/05/2021 13:31 ptdid not have test done.. Performed By: #### U ARFX #### [facility] [address] [place] [address] SARS-CoV-2 (COVID-19) RNA LU+probe Ql (Unsp spec) Canceled Normal [facility] Comment on above: Order Comment: [...] patient management decisions. Fact sheet for providers: https://www.fda.gov/media/317738/download Fact sheet for patients: https://www.fda.gov/media/478767/download This test has received FDA Emergency Use Authorization (EUA) and has been verified by [facility] ([facility]). This test is only authorized for the duration of time that circumstances exist to justify the authorization of the emergency use of in vitro diagnostic tests for the detection of SARS-CoV-2 virus and/or diagnosis of COVID-19 infection under section 564(b)(1) of the Act, 21 U.S.C. 360bbb-3(b)(1), unless the authorization is terminated or revoked sooner. [facility] is certified under CLIA-88 as qualified to perform high complexity testing. Testing is performed in the [facility] laboratories located at [address] [place] [address]. Performed By: #### U ARFX #### [place] [address] ABO/RH GROUP TESTon 06-21-20 21 ABO TYPE O Normal [facility] Comment on above: Performed By: #### U ARFX #### [place] [address] RH TYPE Negative Normal [facility] Comment on above: Performed By: #### U ARFX #### [place] [address] Operative Reports - [facility] [place] [address] Patient Name: PAUL. Trena CARR : 1960 Date of Service: 06/21/2021 Patient Location: [place] [address] Patient Type: O Surgeon: Sal Richardson MD [...] anterior plate instrumentation. SURGEON: Sal Richardson MD TECHNICAL WRITER AND EDITOR(S): Ad Valdivia MD, chief resident. ANESTHESIA: ESTIMATED [...] current moratorium due to short staffing at [facility]. The patient agreed to have the [...] excellent posi (more content not included)... Normal [facility] Order Reconciliationon 06-21 Order Reconciliation [...] a day (more content not included)... Normal [facility] Order Reconciliation Page 1 Admission Reconciliation Document Reconciliation Type: Admission requested on behalf of Cheikh August (Resident) done by Cheikh August (Resident)) Admission - Reconciliation: 21-Jun-2021 06:37 by: Cheikh August ( (Resident)) Home MedicationsEnteredLast Dose TakenReconciled with current Order Reconciliation Comment/ Additional Information celecoxib 200 mg oral capsule 1 cap(s) oral 2 times a [id number] Reviewed and Held gabapentin 300 mg oral capsule 1 tab(s) oral once a [id number] Reviewed and Held hydroxychloroquine 200 mg oral tablet 1 tab(s) oral 2 times a upm29-Pvb-4338 Hydroxychloroquine Tablet (PLAQUENIL)DOSE = 200 mg Oral 2 Times a Day hydroxychloroquine 200 mg oral tablet continued as the inpatient order Hydroxychloroquine irbesartan 300 mg oral tablet 1 tab(s) oral once a [id number]-0087 Reviewed and Held NIFEdipine 30 mg oral [...] Pantoprazole Vitamin C 1 3 times a plz99-Vbt-3641 Reviewed and Held Vitamin D3 1 3 times a vqa64-Axa-1343 Reviewed and Held Zinc 140 mg (as elemental zinc 50 mg) oral tablet 1 tab(s) oral once a day 21-Jun-2021 Reviewed and Held Normal [facility] Patient Profile - Preop v3on 06-21-2021 Patient Profile - Preop v3 Patient Profile - Preop: Initial Info: Patient DemographicsName: JAY CARR Date: 1960 Address: [facility] [place] [address] Primary Phone [phone] How to be AddressedPaul Spoken Language PreferredEnglish Source of Informationpatient Stated Reason for Admissionback surgery Primary Contact Name and NumberAna Lilia Carr () [phone] Limitations on Visitors/Phone Callsnone Patient Belongings2 bags in pacu, glasses and phone with pt Medications Brought to [facility]: Weight in kg98.9 kilogram(s) Weight in ncj467 pound(s) Weight Methodactual (measured) Scale Typestanding Height [...] Withspouse Living Arrangementshouse Resource/Environmental Concernsnone Anticipated Transition [facility] Services Anticipated at Transitionnone Tobacco Use: Tobacco Useno Pre-op Checklist: Arrival [id number] Arrival Time06:43 Procedure TypeC5-7 decompression and fusion [...] 21-Jun-2021 06:45 by Maisha Meyer (ALICE) Normal [facility] CORONAVIRUS 2019, SCREEN ASY MPTOMATICon 06-20-2021 SARS-CoV-2 (COVID-19) RNA LU+probe Ql (Unsp spec) Not detected Normal Not Detected [facility] Comment on above: Result Comment: [...] patient management decisions. Fact sheet for providers: https://www.fda.gov/media/575847/download Fact sheet for patients: https://www.fda.gov/media/480724/download This test has received FDA Emergency Use Authorization (EUA) and has been verified by [facility] ([facility]). This test is only authorized for the duration of time that circumstances exist to justify the authorization of the emergency use of in vitro diagnostic tests for the detection of SARS-CoV-2 virus and/or diagnosis of COVID-19 infection under section 564(b)(1) of the Act, 21 U.S.C. 360bbb-3(b)(1), unless the authorization is terminated or revoked sooner. [facility] is certified under CLIA-88 as qualified to perform high complexity testing. Testing is performed in the [facility] laboratories located at [address] [place] [address]. Performed By: #### U ARFX #### [address] [place] [address] Covid 19 Resultson 1 SARS-CoV-2 (COVID-19) RNA [...] You may also be contacted by the [facility] to see if any of [...] or Naproxen (Aleve) can also be used. Nnup-dkj-exksdhe cough and cold medicines can be used according to the instructions on the package. Some ujnp-woo-nfqbjwy medicines also contain acetaminophen. Make sure you [...] water are not available, use alcohol-based hand cloth desizing range operator chief. Avoid touching your eyes, nose, and mouth [...] 24 mary (more content not included)... Normal [facility] CORONAVIRUS 2019, SCREEN ASY MPTOMATICon 06-19-2021 Lab Specimen Source Nasal, Nasopharyngeal Normal [facility] Comment on above: Performed By: #### U ARFX #### [facility] [address] [place] [address] BASIC METABOLIC PANELon 12- Anion gap [Moles/Vol] 14 mmol/L Normal 10 - 20 [facility] Comment on above: Performed By: #### B MP #### [facility] [address] [place] [address] Calcium [Mass/Vol] 9.0 mg/dL Normal 8.6 - 10.6 [facility] Comment on above: Performed By: #### B MP #### [facility] [address] [place] [address] Chloride [Moles/Vol] 105 mmol/L Normal 98 - 107 [facility] Comment on above: Performed By: #### B MP #### [facility] [address] [place] [address] Creatinine [Mass/Vol] 0.85 mg/dL Normal 0.50 - 1.30 [facility] Comment on above: Performed By: #### B MP #### [facility] [address] [place] [address] GFR- AM. >60 Normal >60 [facility] Comment on above: Result Comment: CALC ULATIONS OF ESTIMATED GFR ARE PERFORMED USING THE MDRD STUDY EQUATION FOR THE IDMS-TRACEABLE CREATININE METHODS. CLIN CHEM 2007;53:766-72 Performed By: #### B MP #### [facility] [address] [place] [address] GFR-NON AM. >60 Normal >60 [facility] Comment on above: Performed By: #### B MP #### [facility] [address] [place] [address] Glucose [Mass/Vol] 87 mg/dL Normal 74 - 99 [facility] Comment on above: Performed By: #### B MP #### [facility] [address] [place] [address] HCO3 (Bld) [Moles/Vol] 27 mmol/L Normal 21 - 32 [facility] Comment on above: Performed By: #### B MP #### [facility] [address] [place] [address] Potassium [Moles/Vol] 4.7 mmol/L Normal 3.5 - 5.3 [facility] Comment on above: Performed By: #### B MP #### [facility] [address] [place] [address] Sodium [Moles/Vol] 141 mmol/L Normal 136 - 145 [facility] Comment on above: Performed By: #### B MP #### [facility] [address] [place] [address] Urea nitrogen [Mass/Vol] 19 mg/dL Normal 6 - 23 [facility] Comment on above: Performed By: #### B MP #### [facility] [address] [place] [address] CBCon 12-10-2021 Erythrocyte distribution width (RBC) [Ratio] 12.4 % Normal 11.5 - 14.5 [facility] Comment on above: Performed By: #### U A #### [facility] [address] [place] [address] Hematocrit (Bld) [Volume fraction] 43.6 % Normal 41.0 - 52.0 [facility] Comment on above: Performed By: #### U A #### [facility] [address] [place] [address] Hemoglobin (Bld) [Mass/Vol] 14.8 g/dL Normal 13.5 - 17.5 [facility] Comment on above: Performed By: #### U A #### [facility] [address] [place] [address] MCHC (RBC) [Mass/Vol] 33.9 g/dL Normal 32.0 - 36.0 [facility] Comment on above: Performed By: #### U A #### [facility] [address] [place] [address] MCV (RBC) [Entitic vol] 93 fL Normal 80 - 100 [facility] Comment on above: Performed By: #### U A #### [facility] [address] [place] [address] NUCLEATED RBC 0.0 /100 WBC Normal 0.0-0.0 [facility] Comment on above: Performed By: #### U A #### [facility] [address] [place] [address] Platelets (Bld) [#/Vol] 295 10*3/uL Normal 150 - 450 [facility] Comment on above: Performed By: #### U A #### [facility] [address] [place] [address] RBC 4.69 x10E12/L Normal 4.50 - 5.90 [facility] Comment on above: Performed By: #### U A #### [facility] [address] [place] [address] WBC (Bld) [#/Vol] 8.5 10*3/uL Normal 4.4 - 11.3 [facility] Comment on above: Performed By: #### U A #### [facility] [address] [place] [address] COAGULATION SCREENon aPTT Coag (Bld) [Time] 31 s Normal 26 - 39 [facility] Comment on above: Result Comment: Note new reference range as of 05/23/2021 at 10:00am. Performed By: #### U A #### [facility] [address] [place] [address] PT Coag (PPP) [Time] 12.2 s Normal 9.8 - 13.4 [facility] Comment on above: Result Comment: Note new reference range as of 05/23/2021 at 10:00am. Performed By: #### U A #### [facility] [address] [place] [address] PT, INR 1.1 Normal 0.9 - 1.1 [facility] Comment on above: Performed By: #### U A #### [facility] [address] [place] [address] Laboratory - Blood bankon ABO group Nom [...] SCREEN PATIENT: JAY CARR LOCATION: [facility] STOLL#: [id number] : 62 AGE: SEX: M ORDERED BY: SAL RICHARDSON SOURCE: ANTERIOR NARES COLLECTED: 06/02/21 10:59 ANTIBIOTICS AT BRAEDEN.: RECEIVED : 06/02/21 13:35 SITE: Nasal R E S U L T S STAPH/MRSA SCREEN FINAL 06/04/21 07:50 NO Staphylococcus aureus ISOLATED. Normal [facility] Comment on above: Performed By: #### S TAPH #### [facility] [address] [place], [place] TH CHEST 2 VIEW PA AND LATon 06-02-2021 TH CHEST 2 VIEW PA AND LAT Patient Name: JAY CARR STUDY: TH CHEST 2 VIEW PA AND LAT; 06/02/2021 11:10 am INDICATION: covid follow up . COMPARISON: None. ACCESSION NUMBER(S): [id number] ORDERING CLINICIAN: SAL RICHARDSON FINDINGS: PA and [...] as stated. This study was interpreted at [place], [place]. Electronically signed by: RANJIT GONZALES MD Normal [facility] TYPE + SCREENon 06-02-2021 ABO TYPE O Normal [facility] Comment on above: Performed By: #### U A #### [facility] [address] [place] [address] RH TYPE Negative Normal [facility] Comment on above: Performed By: #### U A #### [facility] [address] [place] [address] UA MICROSCOPICon 06-02-2021 CA OXALATE CRYSTAL 3+ /HPF Abnormal [facility] Comment on above: Performed By: #### U A #### [facility] [address] [place] [address] Mucus Ql (Urine sed) 4+ /LPF Normal [facility] Comment on above: Performed By: #### U A #### [facility] [address] [place] [address] RBC 11 /HPF Abnormal 0-5 [facility] Comment on above: Performed By: #### U A #### [facility] [address] [place] [address] SQUAMOUS EPITH. CELLS 1 /HPF Normal [facility] Comment on above: Performed By: #### U A #### [facility] [address] [place] [address] WBC 1 /HPF Normal 0-5 [facility] Comment on above: Performed By: #### U A #### [facility] [address] [place] [address] URINALYSIS WITH CULTURE IF I NDICATEDon 06-02-2021 Appearance (U) HAZY Normal CLEAR [facility] Comment on above: Performed By: #### U A #### [facility] [address] [place] [address] Bilirubin Ql (U) Negative Normal NEGATIVE [facility] Comment on above: Performed By: #### U A #### [facility] [address] [place] [address] Color (U) YELLOW Normal STRAW,YELL OW [facility] Comment on above: Performed By: #### U A #### [facility] [address] [place] [address] Glucose Ql (U) Negative Normal NEGATIVE [facility] Comment on above: Performed By: #### U A #### [facility] [address] [place] [address] Hemoglobin Ql (U) Negative Normal NEGATIVE [facility] Comment on above: Performed By: #### U A #### [facility] [address] [place] [address] Ketones Ql (U) Negative Normal NEGATIVE [facility] Comment on above: Performed By: #### U A #### [facility] [address] [place] [address] Leukocyte esterase Test strip Ql (U) Negative Normal NEGATIVE [facility] Comment on above: Performed By: #### U A #### [facility] [address] [place] [address] Nitrite Ql (U) Negative Normal NEGATIVE [facility] Comment on above: Performed By: #### U A #### [facility] [address] [place] [address] pH (U) 5.0 [pH] Normal 5.0 - 8.0 [facility] Comment on above: Performed By: #### U A #### [facility] [address] [place] [address] Protein Ql (U) 100 (2+) Abnormal NEGATIVE [facility] Comment on above: Performed By: #### U A #### [facility] [address] [place] [address] Specific gravity (U) [Rel density] 1.026 Normal 1.005 - 1.035 [facility] Comment on above: Performed By: #### U A #### [facility] [address] [place] [address] Urobilinogen (U) [Mass/Vol] mg/dL Normal 0.0 - 1.9 [facility] Comment on above: Performed By: #### U A #### [facility] [address] [place] [address] Color (U) YELLOW See Below [facility]-C[facility] [...] 05-23-2021 Lab Specimen Source Nasal, Nasopharyngeal Normal [facility] Comment on above: Order Comment: TEST CORONAVIRUS 2018, SCREEN ASYMPTOMATIC WAS CANCELLED, 07/05/2021 13:31 ptdid not have test done.. Performed By: #### U ARFX #### [facility] [address] [address] Tobacco Screening.on 021 Fall risk assessment a) [...] COMPARISON: Lumbosacral spine radiographs 02/09/2021 ACCESSION NUMBER(S): [id number] ORDERING CLINICIAN: TONJA GERARDO TECHNIQUE: Sagittal and [...] degenerative disc height loss at L2-L3 with rkct-bt-iaseouda height loss at L1-L2. Conus: The lower [...] right, without spinal canal stenosis. There is slgs-jt-bmgszktj right and mild left neural foraminal narrowing. [...] as stated. This study was interpreted at [place], [place]. Electronically signed by: STEVE YANG MD Normal [facility] No Panel Informationon 02-09 Normal -Orthopaedic s-[facility] [address] Work Phone: Please click on the link to view the study images Normal -Orthopaedic s-[facility] [address] Work Phone: SPINE, LUMBOSACRAL; MIN 4 EWSon 02-09-2021 SPINE, LUMBOSACRAL; MIN 4 VIEWS Patient Name: JAY CARR STUDY: Lumbar Spine, 4 views. INDICATION: Low back pain COMPARISON: None. ACCESSION NUMBER(S): [id number] ORDERING CLINICIAN: TONJA GERARDO FINDINGS: Grade 1 [...] Electronically signed by: JOSE GOEL MD Normal [facility] [place][note 2] MRI L-Ext Joint w/o Contrast LTon 01-12-2021 [...] formation. No other focal left hip abnormality. [place] thanks you for the opportunity to care for your patient. Workstation ID: [id number] FINAL REPORT Dictated By: Batsheva Brown MD 01/12/2021 08:43 Assigned Physician: Batsheva Brown MD Reviewed and Electronically Signed By: Batsheva Brown MD 01/12/2021 09:09 Transcribed by: [facility] 01/12/2021 08:43 Technologist: OPEN HEARTH HELPER Normal [facility] Basic metabolic 2000 panelon 11-10-2020 Calcium [Mass/Vol] 9.5 mg/dL Normal 8.5-10.6 [facility] Chloride [Moles/Vol] 104 mmol/L Normal 98-[address] [facility] CO2 [Moles/Vol] 28 mmol/L Normal 21-32 [facility] Creatinine [Mass/Vol] 0.85 mg/dL Normal 0.55-1.[address] [facility] Glucose [Mass/Vol] 112 mg/dL High 70-99 [facility] Potassium [Moles/Vol] 4.2 mmol/L Normal 3.5-5.1 [facility] Sodium [Moles/Vol] 142 mmol/L Normal 136-145 [facility] Urea nitrogen (BldV) [Mass/Vol] 20 mg/dL High 7.0-18.0 [facility] Urea nitrogen/Creatinine [Mass ratio] 24 mg/mg Normal [facility] CBC W Auto Differential pane l (Bld)on 11-10-2020 Basophils (Bld) [#/Vol] 0.0 thou/mcL Normal 0.0-0.2 [facility] Basophils/100 WBC (Bld) 0.5 % Normal 0-3 [facility] Differential cell count method Nom (Bld) AUTOMATED DIFFERENTIAL Normal [facility] Eosinophils (Bld) [#/Vol] 0.1 thou/mcL Normal 0.0-0.4 [facility] Eosinophils/100 WBC (Bld) 0.9 % Normal 0-7 [facility] Erythrocyte distribution width (RBC) [Entitic vol] 13.0 % Normal 11.7-15.0 [facility] Hematocrit (Bld) [Volume fraction] 43.4 % Normal 34.0-50.0 [facility] Hemoglobin (Bld) [Mass/Vol] 15.0 g/dL Normal 11.5-17.0 [facility] Lymphocytes (Bld) [#/Vol] 1.0 thou/mcL Normal 0.7-4.5 [facility] Lymphocytes/100 WBC (Bld) 15.6 % Normal 14-46 [facility] MCH (RBC) [Entitic mass] 32.5 Picograms Normal 27.0-34.0 [facility] MCHC (RBC) [Mass/Vol] 34.6 g/dL Normal 32.0-36.0 [facility] MCV (RBC) [Entitic vol] 94.0 fL Normal 80-98 [facility] Monocytes (Bld) [#/Vol] 0.6 thou/mcL Normal 0.1-1.0 [facility] Monocytes/100 WBC (Bld) 9.8 % Normal 4-13 [facility] Neutrophils (Bld) [#/Vol] 4.7 thou/mcL Normal 1.5-7.8 [facility] Neutrophils/100 WBC (Bld) 73.2 % Normal 40-74 [facility] Platelet mean volume (Bld) [Entitic vol] 9.4 fL Normal 7.5-11.2 [facility] Platelets (Bld) [#/Vol] 220 thou/mcL Normal 140-415 [facility] RBC (Bld) [#/Vol] 4.62 x(10)6/mcL Normal 3.80-5.60 [facility] WBC (Bld) [#/Vol] 6.5 thou/mcL Normal 4.0-10.5 [facility] PT Coag (PPP) [Time]on 11-10 INR Coag (Bld) [Relative time] 0.9 {INR} Normal [facility] Comment on above: Result Comment: ENRRIQUE GRIMES THE INDUCTION PHASE OF ORAL ANTICOAGULATION, THE INR MAY NOT REFLECT THE ANTICOAGULANT STATUS OF THE PATIENT. THERAPEUTIC RANGES FOR INR'S ARE: MOST CLINICAL SITUATIONS: INR 2.0-3.0 MECHANICAL PROSTHETIC VALVES: INR 2.5-3.5 CRITICAL: INR 5.0 Prothrombin Timeon PT Coag (PPP) [Time] 12.6 s Normal 11.9-14.6 [facility] aPTT Coag (Bld) [Time]on aPTT Coag (PPP) [Time] 38.6 s High 23.2-34.6 [facility] Vital Signs Date Time Vital Sign Value Performing Clinician Facility 04-13-2024 09:42-0400 Blood Pressure Location Shun MACHADO [facility] 04-13-2024 09:42-0400 Body temperature 98.6 [degF] Shun MACHADO [facility] 04-13-2024 09:42-0400 Diastolic blood pressure 88 mm[Hg] Shun COOK [facility] 04-13-2024 09:42-0400 Heart rate 78 /min Shun COOK [facility] 04-13-2024 09:42-0400 Respiratory rate 16 /min Shun COOK [facility] 04-13-2024 09:42-0400 Systolic blood pressure 137 mm[Hg] Shun COOK [facility] 04-08-2023 10:38-0400 Blood Pressure Location Shun COOK [facility] 04-08-2023 10:38-0400 Diastolic blood pressure 82 mm[Hg] Shun COOK [facility] 04-08-2023 10:38-0400 Heart rate 71 /min Shun COOK [facility] 04-08-2023 10:38-0400 Systolic blood pressure 154 mm[Hg] Shun COOK [facility] 10-16-2022 14:18-0400 Blood Pressure Location Shun COOK [facility] 10-16-2022 14:18-0400 Diastolic blood pressure 94 mm[Hg] Shun COOK [facility] 10-16-2022 14:18-0400 Heart rate 72 /min Shun COOK [facility] 10-16-2022 14:18-0400 Systolic blood pressure 186 mm[Hg] Shun COOK [facility] 10-02-2022 13:36-0400 Blood Pressure Location Arely KRISHNAMURTHYL [facility] [place] 10-02-2022 13:36-0400 Diastolic blood pressure 80 mm[Hg] Arely KRISHNAMURTHYL [facility] [place] 10-02-2022 13:36-0400 Heart rate 76 /min Arely KRISHNAMURTHYL [facility] [place] 10-02-2022 13:36-0400 Respiratory rate 16 /min Arely KRISHNAMURTHYL [facility] [place] 10-02-2022 13:36-0400 Systolic blood pressure 144 mm[Hg] Arely NILL [facility] [place] 02-15-2022 14:19-0400 Diastolic blood pressure 95 mm[Hg] MD Dania Armstrong Work Phone: [facility] 02-15-2022 14:19-0400 Heart rate 66 /min MD Dania Armstrong Work Phone: [facility] 02-15-2022 14:19-0400 Respiratory rate 16 /min MD Dania Armstrong Work Phone: [facility] 02-15-2022 14:19-0400 SaO2% (BldA) [Mass fraction] 99 % MD Dania Armstrong Work Phone: [facility] 02-15-2022 14:19-0400 Systolic blood pressure 170 mm[Hg] MD Dania Armstrong Work Phone: [facility] 02-15-2022 13:04-0400 Inhaled oxygen flow rate 6 L/min MD Dania Armstrong Work Phone: [facility] [facility] 02-15-2022 12:00-0400 Body weight 42 mg MD Dania Armstrong Work Phone: [facility] 02-15-2022 10:03-0400 Body height 175.26 cm MD Dania Armstrong Work Phone: [facility] 02-15-2022 10:03-0400 Body mass index (BMI) [Ratio] 31.3 kg/m2 MD Dania Armstrong Work Phone: [facility] 02-15-2022 10:03-0400 Body weight 96.16 kg MD Dania Armstrong Work Phone: [facility] 02-15-2022 07:29-0400 Body temperature 98.8 [degF] MD Dania Armstrong Work Phone: [facility] 01-24-2022 13:59-0400 Blood Pressure Location Arely NILL [facility] [place] 01-24-2022 13:59-0400 Diastolic blood pressure 74 mm[Hg] Arely NILL [facility] [place] 01-24-2022 13:59-0400 Heart rate 72 /min Arely NILL [facility] [place] 01-24-2022 13:59-0400 Respiratory rate 16 /min Arely NILL [facility] [place] 01-24-2022 13:59-0400 Systolic blood pressure 140 mm[Hg] Arely NILL [facility] [place] 01-19-2022 16:45-0400 Diastolic blood pressure 84 mm[Hg] MD Dania Armstrong Work Phone: [facility] 01-19-2022 16:45-0400 Heart rate 70 /min MD Dania Armstrong Work Phone: [facility] 01-19-2022 16:45-0400 Respiratory rate 16 /min MD Dania Armstrong Work Phone: [facility] 01-19-2022 16:45-0400 SaO2% (BldA) [Mass fraction] 98 % MD Dania Armstrong Work Phone: [facility] 01-19-2022 16:45-0400 Systolic blood pressure 148 mm[Hg] MD Dania Armstrong Work Phone: [facility] 01-19-2022 15:04-0400 Body height 177.8 cm MD Dania Armstrong Work Phone: [facility] 01-19-2022 15:04-0400 Body mass index (BMI) [Ratio] 31.2 kg/m2 MD Dania Armstrong Work Phone: [facility] 01-19-2022 15:04-0400 Body weight 98.8 kg MD Dania Armstrong Work Phone: [facility] 01-19-2022 14:24-0400 Body temperature 98.6 [degF] MD Dania Armstrong Work Phone: [facility] 09-27-2021 09:44-0400 Body temperature 97.88 [degF] Dania Hoy Other Phone: [facility] 09-27-2021 09:44-0400 Diastolic blood pressure 74 mm[Hg] Dania Hoy Other Phone: [facility] 09-27-2021 09:44-0400 Heart rate 89 /min Dania Hoy Other Phone: [facility] 09-27-2021 09:44-0400 Respiratory rate 18 /min Dania Hoy Other Phone: [facility] 09-27-2021 09:44-0400 SaO2% (BldA) [Mass fraction] 94 % Dania Anthonyy Other Phone: [facility] 09-27-2021 09:44-0400 Systolic blood pressure 149 mm[Hg] Dania Hoy Other Phone: [facility] 03-16-2021 08:34-0400 Body weight 101.86 [...] Facility Start: 04-12-2025 ambulatory Shun MACHADO Facility :[facility] Start: 10-13-2024 End: 10-13-2024 Patient encounter procedure Dania Armstrong MD Work Phone: [facility] [address] Work Phone: Start: 10-13-2024 End: 10-13-2024 ambulatory Dania Armstrong MD Work Phone: [facility] Work Phone: Start: 07-14-2024 End: 07-14-2024 Encounter identifier Fidel Narayan Work Phone: [facility] Start: 07-14-2024 ambulatory Fidel SARMIENTO [facility] Start: 04-13-2024 End: 04-13-2024 ambulatory Shun MACHADO Facility: [facility] Start: 04-13-2024 End: 04-13-2024 Patient encounter procedure Shun MACHADO [facility] Start: 03-04-2024 End: 03-04-2024 Patient encounter procedure MD Dnaia Armstrong Work Phone: [facility] [address] Work Phone: Start: 03-04-2024 End: 03-04-2024 ambulatory MD Dania Armstrong Work Phone: [facility] Work Phone: Start: 12-27-2023 Non-patient / Non-visit MD Brittani Armstrong Work Phone: [facility] Work Phone: Start: 11-19-2023 End: 11-19-2023 Patient encounter procedure MD Dania Armstrong Work Phone: [facility] [address] Work Phone: Start: 11-19-2023 End: 11-19-2023 ambulatory MD Dania Armstrong Work Phone: [facility] Work Phone: Start: 09-19-2023 End: 09-19-2023 Office outpatient visit 15 minutes Fidel Narayan Work Phone: [facility] Start: 08-28-2023 End: 08-28-2023 ambulatory STEFANIE KNIGHT Not Available Start: 08-26-2023 End: 08-26-2023 ambulatory PB MAY Not Available Start: 07-30-2023 End: 07-30-2023 ambulatory GENE MILAGROBLEY Not Available Start: 07-25-2023 End: 07-25-2023 ambulatory STEFANIE KNIGHT Not Available Start: 07-23-2023 End: 07-23-2023 ambulatory GENE MILAGROBLEY Not Available Start: 07-18-2023 End: 07-19-2023 ambulatory GENE MILAGROBLEY Not Available Start: 07-18-2023 End: 07-18-2023 ambulatory MD Dania Armstrong Work Phone: [facility] Work Phone: Start: 07-18-2023 End: 07-18-2023 Patient encounter procedure MD Dania Armstrong Work Phone: [facility] [address] Work Phone: Start: 07-16-2023 End: 07-16-2023 ambulatory GENE FREY Not Available Start: 07-09-2023 End: 07-09-2023 ambulatory STEFANIE KNIGHT Not Available Start: 07-05-2023 End: 07-05-2023 Office outpatient new 30 minutes Fidelannabel Narayan Work Phone: [facility] Start: 04-08-2023 End: 04-08-2023 Patient encounter procedure Shun MACHADO [facility] Start: 03-12-2023 End: 03-12-2023 ambulatory ANTWAN SORIANO Facility:[facility] Start: 02-19-2023 End: 02-19-2023 ambulatory MD Dania Armstrong Work Phone: [facility] Work Phone: Start: 02-19-2023 End: 02-19-2023 Patient encounter procedure MD Dania Armstrong Work Phone: [facility] [address] Work Phone: Start: 10-16-2022 End: 10-16-2022 Patient encounter procedure Shun MACHADO [facility] Start: 10-15-2022 End: 10-15-2022 ambulatory MD Dania Armstrong Work Phone: [facility] Work Phone: Start: 10-15-2022 End: 10-15-2022 Patient encounter procedure MD Dania Armstrong Work Phone: [facility] [address] Work Phone: Start: 10-02-2022 End: 10-02-2022 Patient encounter procedure Arely LOGAN [facility] [place] Start: 09-11-2022 End: 09-11-[address] DANIA ARMSTRONG . Facility:[facility] Start: 09-05-2022 [facility] Fac[facility]ity[facility] Start: 08-31-2022 End: 09-01-[address] ARELY LOGAN . Facility:[facility] Start: 08-27-2022 Chart Update Dania Armstrong Work Phone: SQ-Npqufwrhdbuc-Hltjgpy [facility] Work Phone: Start: 08-16-2022 End: 08-17-2022 ambulatory WADE NELSON Facility:[facility] Start: 07-19-2022 End: 07-20-2022 ambulatory WADE NELSON Facility:[facility] Start: 07-06-2022 End: 07-07-[address] DANIA ARMSTRONG . Facility:[facility] Start: 06-19-2022 Encounter for preprocedural laboratory examination JENI Albrecht [facility] Start: 06-07-2022 End: 06-08-[address] DANIA ARMSTRONG . Facility:[facility] Start: 06-04-2022 End: 06-05-[address] DANIA ARMSTRONG . Facility:[facility] Start: 06-04-2022 End: 06-05-2022 Encounter for preprocedural laboratory examination DR DANIA ARMSTRONG . Facility:[facility] Start: 05-31-2022 Encounter for preprocedural cardiovascular examination [facility] Start: 05-25-2022 End: 05-26-2022 [facility] Start: 05-25-2022 End: 05-26-2022 Encounter for preprocedural cardiovascular examination JENI SAEED Facility:[facility] Start: 05-23-[address] DANIA ARMSTRONG . Facili ty:[facility]1 Start: 05-23-2022 End: 05-23-2022 ambulatory MD Dania Armstrong Work Phone: [facility] Work Phone: Start: 05-23-2022 End: 05-23-2022 Patient encounter procedure MD Dania Armstrong Work Phone: [facility] [address] Start: 05-02-2022 ambulatory Mr. Kenton Lawson Angela cility:[facility] Start: 05-02-2022 Office outpatient vi sit 25 minutes Dania Armstrong Work Phone: PD-Guvyykqbmaeg-Yrpxxiq 5FL DO Work Phone: Start: 03-30-2022 Encounter for genera l adult medical examination without abnormal findings DR DANIA ARMSTRONG . [facility] Start: 03-28-2022 End: 03-29-[address] DANIA ARMSTRONG . Facility:[facility] Start: 03-28-2022 End: 03-29-2022 Encounter for general adult medical examination without abnormal findings DR DANIA ARMSTRONG . Facility:[facility] Start: 02-15-2022 End: 02-15-2022 Admission to same day surgery center MD Dania Armstrong Work Phone: [facility] [place] Start: 02-14-2022 End: 02-15-2022 ambulatory JENI SAEED Facility:[facility] Start: 02-13-2022 End: 02-13-2022 Patient encounter procedure MD Dania Armstrong Work Phone: [facility] Start: 01-30-2022 End: 01-30-2022 Patient encounter procedure Shun MACHADO [facility] Start: 01-29-2022 End: 01-30-[address] DANIA ARMSTRONG . Facility:[facility] Start: 01-29-2022 ambulatory Dania Armstrong Fac ility:[facility] Start: 01-29-2022 Office outpatient vi sit 15 minutes Dania Armstrong Work Phone: AD-Qaqegesxavgh-Ummqmxi 5FL DO Work Phone: Start: 01-29-2022 ambulatory Mr. Kenton Lawson Angela cility:[id number] Start: 01-24-2022 End: 01-24-2022 Patient encounter procedure Arely LOGAN [facility] [place] [place] Start: 01-19-2022 End: 01-19-2022 Admission to same day surgery center MD Dania Armstrong Work Phone: [facility] [place] Start: 01-17-2022 End: 01-17-2022 Patient encounter procedure MD Dania Armstrong Work Phone: [facility] Start: 01-11-2022 End: 01-12-[address] SHUN MACHADO Facility:[facility] Start: 01-09-2022 End: 01-09-[address] LAURY ZEPEDA Facility:[facility] Start: 01-05-2022 End: 01-06-[address] DANIA ARMSTRONG . Facility:[facility] Start: 12-27-2021 End: 12-28-[address] DANIA ARMSTRONG . Facility:[facility] Start: 12-09-2021 End: 12-10-[address] DANIA ARMSTRONG . Facility:[facility] Start: 11-09-2021 Chart Update Dania Armstrong Work Phone: CT-Sivghiwkofwz-Knhpfs 210 Work Phone: Start: 11-08-2021 Postop follow up vis it related to original px Dania Armstrong Work Phone: XX-Pknebinpvzvv-Tjfvggm 5FL DO Work Phone: Start: 11-08-2021 POV, Provider: Kenton Lawson, Status: Pen, Time: 11:00 AM Dania Armstrong Work Phone: WK-Kagqkrshsmdr-Iwlvsf 210 Work Phone: Start: 11-08-2021 ambulatory Dania Armstrong Fac ility:[facility] Start: 11-07-2021 AUDIT Dania Armstrong Work Phone: NA-Ynirnhbenizy-Txvdpi 210 Work Phone: Start: 09-26-2021 End: 09-27-2021 Evaluation and management of inpatient Sal Richardson [facility] [id number] Start: 09-19-2021 AUDIT Dania Armstrong Work Phone: PD-Etpkiwomrallru-Bvh for Perioperative Med Work Phone: Start: 09-19-2021 ambulatory Dania Armstrong Fac ility:[facility] Start: 09-19-2021 Encounter for blood typing Dr. SAL RICHARDSON [facility] Start: 09-19-2021 Encounter for preprocedural laboratory examination Dr. SAL RICHARDSON [facility] Start: 08-23-2021 Office outpatient vi sit 40 minutes Dania Armstrong Work Phone: EC-Bnmrpujlxzld-Zzxevva ng[facility] Work Phone: Start: 08-23-2021 ambulatory Dania Armstrong Fac ility:[facility] Start: 08-03-2021 Office outpatient vi sit 25 minutes aDnia Armstrong Work Phone: MB-Sehpqvgqnmus-Snrogl 210 Work Phone: Start: 08-03-2021 ambulatory Referral Self Facility: [facility] Start: 06-21-2021 End: 06-21-2021 ambulatory Dania Armstrong Facility:[facility] Start: 06-02-2021 AUDIT No PCP None [facility] Per[facility]operative [facility] Work Phone: Start: 06-02-[address] SAL RICHARDSON Facility:[facility] Start: 06-02-[address] SAL RICHARDSON Facility:[facility] Start: 06-02-2021 Encounter for other preprocedural examination Dr. SAL RICHARDSON [facility] Start: 06-02-2021 Encounter for preprocedural cardiovascular examination Dr. SAL RICHARDSON [facility] Start: 05-03-2021 Office outpatient vi sit 40 minutes No PCP None MY-Pbprpwpnufsq-Xoozmau ng-[facility] Work Phone: Start: 03-16-2021 NPV, Provider: Nazario Holloway, Status: Pen, Time: 8:30 AM No PCP None [facility] Work Phone: Start: 03-16-2021 Office outpatient ne w 30 minutes No PCP None [facility] Work Phone: Start: 03-16-2021 Patient encounter procedure No PCP None [facility] Work Phone: Start: 03-13-2021 Office consultation new/estab patient 80 min No PCP None [facility] Work Phone: Start: 03-10-2021 Chart Update No PCP None [facility] [address] Work Phone: Start: 03-06-2021 Telephone encounter No PCP None [facility] Work Phone: Start: 02-12-2021 Chart Update No PCP None [facility] [address] Work Phone: Start: 02-09-2021 Office outpatient ne w 45 minutes No PCP None KS-Irsvmnagcfdc-Duuqxp 210 Work Phone: Start: 02-08-2021 AUDIT No [...] Comment on above: Performed By: #### P [facility] #### [facility] [address] [address] [address] Carolyn King Start: 02-15-2022 Cystoscopy MD Dania Armstrong Work Phone: Start: 02-15-2022 Diagnostic radiograp hy of abdomen MD Dania Armstrong Work Phone: Start: 01-19-2022 Extracorporeal shock wave lithotripsy MD Dania Armstrong Work Phone: Start: 01-19-2022 Diagnostic radiograp hy of abdomen MD Dania Armstrong Work Phone: Start: 01-19-2022 Extracorporeal shock wave lithotripsy of calculus of kidney Shun MACHADO Start: 01-19-2022 Lithotripsy Arely MEJIA Start: 01-17-2022 Plain chest X-ray MD Pacheco Work Phone: Start: 09-19-[address] ASIA RICHARDSON Comment on above: Performed By: #### T +S #### [facility] [address] [place] [address] Start: 06-02-[address] ASIA RICHARDSON Comment on above: Performed By: #### U A #### [facility] [address] [employer] [place] [address] Arthroplasty of knee Arely NILL Colonoscopy Arely NILL Excision of cervical intervertebral disc Arely NILL Excision of melanoma Arely NILL Fusion of lateral jeff mbar interbody Arely NILL Fusion of tarsal joints Ricardo ael NILL Plan of Treatment Date Care Activity Detail Author Start: 10-13-2024 Hemolytic complement CH50 level [facility] Start: 03-04-2024 Hemolytic complement CH50 level [facility] Start: 11-19-2023 Hemolytic complement CH50 level [facility] Start: 07-18-2023 Hemolytic complement CH50 level [facility] Start: 02-19-2023 Hemolytic complement CH50 [facility] Start: 10-15-2022 Hemolytic complement CH50 level [facility] Start: 09-26-2022 FUV, Provider: Kenton Lawson, Status: Pen, Time: 9:30 AM FUV, Provider: Kenton Lawson, Status: Pen, Time: 9:30 AM LP-Ibegesdeqspx-Hwyvgks 5FL DO Work Phone: Start: 05-23-2022 Hemolytic complement CH50 level [facility] Start: 05-02-2022 FUV, Provider: Kenton Lawson, Status: Pen, Time: 9:00 AM FUV, Provider: Kenton Lawson, Status: Pen, Time: 9:00 AM IH-Ddwbxacujetm-Smuwzsk 5FL DO Work Phone: Start: 02-15-2022 End: 02-15-2022 [facility] Work Phone: Start: 02-15-2022 Cystoscopy OR Cysto/Retro/Stent/Ston e/Holmium Laser (Right) [facility] Start: 02-15-2022 Diagnostic radiograp hy of abdomen XR KUB [facility] Start: 02-15-2022 End: 02-15-2022 Admission to same day surgery center Departed Surgical Day Care [facility] [place] Start: 02-13-2022 End: 02-13-2022 Patient encounter procedure Departed Clinical [facility] Zqc-Gxe-Qsenbdvn Testing Start: 01-19-2022 End: 01-19-2022 [facility] Work Phone: Start: 01-15-2022 FUV, Provider: Kenton Lawson, Status: Pen, Time: 10:00 AM FUV, Provider: Kenton Lawson, Status: Pablo, Time: 10:00 AM EC-Trnkrjhbdxiq-Yjmwmai 5FL DO Work Phone: Start: 11-08-2021 Patient encounter procedure [facility] Raheem Start: 09-27-2021 End: 09-28-2022 Sodium Chloride 0.9% Injectable Flush Peripheral Line ; via Peripheral LineVolume = 10 mL IntraVenous Flush Every 8 Hours and as Needed Start: 27-Sep-2021 End: 27-Sep-2022 Ordered: 27-Sep-2021 Timothy Steinberg [facility] Start: 09-27-2021 End: 09-28-2022 oxyCODONE Immediate Release 10 mg Oral Tablet Every 4 Hours ; Tablet (OXYIR, ROXICODONE)DOSE = 10 mg Oral Every 4 Hours, PRN Pain - Severe (7-10) Start: 27-Sep-2021 End: 27-Sep-2022 Ordered: 27-Sep-2021 Timothy Steinberg [facility] Start: 09-26-2021 End: 09-27-2022 [facility] Comment on above: HOLD BRICKLAYER PAVING BRICK Infusion an d notify H.O. immediately Start: 09-26-2021 [facility], Provider: Sal Richardson, Status: Pablo, Time: 7:30 AM [facility], Provider: Sal Richardson, Status: Pablo, Time: 7:30 AM YD-Xqmocwsqwlaekp-Gnk for Perioperative Med Work Phone: Start: 08-30-2021 FUV, Provider: Sal Richardson, Status: Pablo, Time: 11:15 AM FUV, Provider: Sal Richardson, Status: Pablo, Time: 11:15 AM BG-Giwlfzkvjsob-Vvevzn 210 Work Phone: Start: 08-30-2021 FUV, Provider: Sal Richardson, Status: Pen, Time: 11:00 AM FUV, Provider: Sal Richardson, Status: Pablo, Time: 11:00 AM LF-Zapktrhlsjqh-Weauiv 210 Work Phone: Start: 06-09-2021 [facility], Provider: Sal Richardson, Status: Pen, Time: 7:30 AM [facility], Provider: Sal Richardson, Status: Pen, Time: 7:30 AM QQ-Thlguwiqtirldt-Xrk for Perioperative Med Work Phone: Start: 03-22-2021 [facility], Provider: Nazario Holloway, Status: Pen, Time: 9:40 AM [facility], Provider: Nazario Holloway, Status: Pen, Time: 9:40 AM [facility] Work Phone: Start: 03-13-2021 FUV, Provider: Sal Richardson, Status: Pen, Time: 2:15 PM [facility]UV, Provider: Sal Richardson, Status: Pen, Time: 2:15 PM XQ-Nbuqfvicpwpr-Qbrpfh 210 Work Phone: Complement C3 [Mass/volume] in Serum or Plasma [facility] Work Phone: Complement C3 [Mass/volume] in Serum or Plasma [facility] Complement C3 [Mass/volume] in Serum or Plasma [facility] Complement C3 [Mass/volume] in Serum or Plasma [facility] Complement C3 [Mass/volume] in Serum or Plasma [facility] Complement C4 [Mass/volume] in Serum or Plasma [facility] Work Phone: Complement C4 [Mass/volume] in Serum or Plasma [facility] Complement C4 [Mass/volume] in Serum or Plasma [facility] Complement C4 [Mass/volume] in Serum or Plasma [facility] Complement C4 [Mass/volume] in Serum or Plasma [facility] Hemolytic complement CH50 level [facility] Work Phone: Patient referral [facility] Work Phone: Immunizations Immunization Date Immunization Notes Care Provider Fa cilidelfina 03-27-2022 influenza virus vaccine, unspecified formulation Arely LOGAN [facility] [place] 11-21-2021 SARS-CoV-2 mRNA (ihfuueblkch-rgsp-pbtx ose) vaccine Arely LOGAN [facility] [place] 09-22-2021 SARS-CoV-2 (COVID-19 ) mRNA BNT-162b2 vax Arely KRISHNAMURTHYL [facility] [place] 06-26-2021 Pfizer-BioNTech COVID-19 Vacc 30 MCG/0.3ML Intramuscular Suspension Dania Armstrong Work Phone: [facility] 05-01-2021 influenza virus vaccine, unspecified formulation Shun MACHADO [facility] 05-01-2021 Influenza, injectabl e, Madin [place] Canine Kidney, preservative free, quadrivalent Dania Armstrong Work Phone: IM-Hjdutoioscld-Kr sman 210 Work Phone: 10-06-2020 Pfizer-BioNTech COVID-19 Vacc 30 MCG/0.3ML Intramuscular Suspension No PCP None [facility] 09-13-2020 Pfizer-BioNTech COVID-19 Vacc 30 MCG/0.3ML Intramuscular Suspension No PCP None [facility] 06-24-2020 SARS-CoV-2 (COVID-19 ) mRNA BNT-162b2 vax Arely LOGAN [facility] [place] 05-04-2020 influenza virus vaccine, unspecified formulation Shun MACHADO [facility] 05-04-2020 Influenza, injectabl e, Madin Charissa Canine Kidney, preservative free, quadrivalent No PCP None ZM-Yhyzpjdgjyqw-Ac sman 210 Work Phone: 05-04-2020 pneumococcal conjuga te vaccine, 13 valent No PCP None [facility] 04-06-2020 influenza virus vaccine, unspecified formulation Shun MACHADO [facility] 04-06-2020 influenza, seasonal, injectable No PCP None LY-Gicddclxvgbq-Qf sman 210 Work Phone: 10-25-2011 hepatitis A vaccine, adult dosage No PCP None [facility] 10-25-2011 hepatitis B vaccine, pediatric or pediatric/adolescent dosage No PCP None [facility] 03-30-2011 hepatitis A vaccine, adult dosage No PCP None [facility] 03-30-2011 hepatitis B vaccine, pediatric or pediatric/adolescent dosage No PCP None [facility] 02-15-2011 hepatitis B vaccine, pediatric or pediatric/adolescent dosage No PCP None [facility] 01-20-1998 hepatitis B vaccine, adult dosage No PCP None [facility] 02-24-1997 hepatitis B vaccine, adult dosage No PCP None [facility] 11-11-1996 hepatitis B vaccine, adult dosage No PCP None [facility] 11-02-1996 TD(adult) unspecifie d formulation; Translations: [Td(adult) unspecified formulation] No PCP None [facility] NEGATED: Highlighted row has not occurred!04-15-2019 influenza virus vaccine, unspecified formulation Arely LOGAN [facility] [place] Payers Date Payer Category Payer Self-pay [id number] 2023 Unknown [id number] 2022 Medicare [id number] 1961 Unknown [id number] 2.16. 840.1.318244.3.579.2.356 1961 Unknown [id number] 2.16. 840.1.999895.3.579.2.356 1961 Unknown [id number] 2.16. 840.1.737914.3.579.2.356 1961 Unknown [id number] 2.16. 840.1.059259.3.579.2.356 1961 Unknown [id number] 2.16. 840.1.269569.3.579.2.356 1961 Unknown [id number] 2.16. 840.1.512505.3.579.2.356 1961 Unknown [id number] 2.16. 840.1.872173.3.579.2.356 1961 Unknown [id number] 2.16. 840.1.087455.3.579.2.356 1961 Unknown [id number] 2.16. 840.1.170053.3.579.2.356 1961 Unknown [id number] 2.16. 840.1.698530.3.579.2.356 1961 Unknown [id number] 2.16. 840.1.069827.3.579.2.356 1961 Unknown [id number] 2.16. 840.1.952250.3.579.2.356 1961 Unknown [id number] 2.16. 840.1.394886.3.579.2.356 1961 Unknown [id number] 2.16. 840.1.963797.3.579.2.356 1961 Unknown [id number] 2.16.84 0.1.808785.3.579.2.593 1961 Unknown [id number] 2.16.84 0.1.731511.3.579.2.593 1961 Unknown [id number] 2.16.84 0.1.535628.3.579.2.593 1961 Unknown [id number] 2.16.84 0.1.274503.3.579.2.593 1961 Unknown [id number] 2.16.84 0.1.616375.3.579.2.593 1961 Unknown [id number] 2.16.84 0.1.292683.3.579.2.593 1961 Unknown [id number] 2.16.84 0.1.825818.3.579.2.593 1961 Unknown [id number] 2.16.84 0.1.107075.3.579.2.593 1961 Unknown [id number] 2.16.84 0.1.245578.3.579.2.593 1961 Unknown [id number] 2.16.84 0.1.197138.3.579.2.593 1961 Unknown [id number] 2.16.84 0.1.489417.3.579.2.593 1961 Unknown [id number] 2.16.84 0.1.715559.3.579.2.593 1960 Unknown [id number] 2.16.84 0.1.709122.3.579.2.593 1960 Unknown [id number] 2.16.84 0.1.314393.3.579.2.593 1961 Unknown [id number] 2.16.84 0.1.211404.3.579.2.593 1961 Unknown [id number] 2.16.84 0.1.758019.3.579.2.593 1961 Unknown [id number] 2.16.84 0.1.747650.3.579.2.593 1961 Unknown [id number] 2.16.84 0.1.920105.3.579.2.593 1961 Unknown [id number] 2.16.84 0.1.492027.3.579.2.593 1961 Unknown [id number] 2.16.84 0.1.756296.3.579.2.1259 1961 Unknown [id number] 2.16.84 0.1.273251.3.579.2.1259 1961 Unknown [id number] 2.16.84 0.1.082120.3.579.2.1259 1961 Unknown [id number] 2.16.84 0.1.135863.3.579.2.1259 1961 Unknown [id number] 2.16.84 0.1.758494.3.579.2.1259 1961 Unknown [id number] 2.16.84 0.1.685244.3.579.2.1259 1961 Unknown [id number] 2.16.84 0.1.346606.3.579.2.1259 1961 Unknown [id number] 2.16.84 0.1.443825.3.579.2.1259 1961 Unknown [id number] 2.16.8 40.1.736308.3.579.2.727 1961 Unknown [id number] 2.16.8 40.1.910308.3.579.2.727 1961 Unknown [id number] 2.16.84 0.1.280607.3.579.2.1314 1959 Unknown [id number] 1959 Unknown [id number] Unknown Unknown [facility] [id number] Unknown [id number] Unknown [id number] 2.16.8 40.1.816330.3.579.2.531 Unknown [id number] 2.16.8 40.1.301753.3.579.2.531 Unknown [id number] 2.16.8 40.1.208031.3.579.2.531 Social History Date Type Detail Facility [facility] Start: 07-14-2024 Tobacco smoking consumption unknown [facility] Start: 01-24-2022 End: 02-15-2022 Tobacco smoking status Never smoked tobacco (finding) [facility] Work Phone: Tobacco smoking status Never [facility] [place] Sex Assigned At Male [facility] [place] Start: 1960 Sex Assigned At Male [facility] Start: 07-14-2024 Alcohol intake Alcohol Use Details [facility] Start: 10-17-2022 Sexual Orientation Choose not to disclose [facility] Start: 10-14-2024 Sex Male (finding) [facility] Medical Equipment Procedure Code Equipment Code Equipment Origin al Text Equipment Identifier Dates Cystoscopy, with ureteral calculus manipulation and stent placement Polymeric ureteral stent [id number] FDA Start: 02-15-2022 Cystoscopy, with ureteral calculus manipulation and stent placement Polymeric ureteral stent ()[id number] FDA Start: 01-19-2022 Goals Date Patient Goal Desired Activity /State Functional Status Date Assessment Result Facility 04-13-2024 Functional Status N/A [facility] 04-08-2023 Functional Status N/A [facility] 10-16-2022 Functional Status N/A [facility] 10-02-2022 Functional Status N/A [facility] 01-30-2022 Functional Status N/A [facility] 01-24-2022 Functional Status N/A [facility] Functional observable [facility] Mental Status Date Assessment Result Facility 09-26-2021 Cognitive functions 27-Sep-19 2212:26 [facility] Clinical Notes 10-31-2020 to 04-13-2024 [...] include: ?8 oz (237 mL) of milk, rhubjzb-ulbxwanvudkn-adogy milk, and calcium-fortifiedfruit juice. Calcium-fortified means that [...] ?Spinach (cooked), rhubarb, beets, sweet potatoes, and Emirati chard. ?Peanuts. ?Potato chips, zambian fries, and baked potatoes with skin on. ?Nuts and nut products. ?Chocolate. If you regularly take a diuretic medicine, make sure to eat at least 1 or 2 servings of fruits or vegetables that are high in potassium each day. These include: ?Avocado. ?Banana. ?Yalobusha, prune, carrot, or tomato juice. ?Baked potato. [...] magnesium, fish oil, or vitamin B6. Take kmqy-zkb-gmkrttr and prescription medicines only as told by [...] Casseroles. Pizza. Lasagna. Frozen meals. Potato chips. Northern Irish fries. The items listed above may not [...] provider. Document Revised: 09/20/2022 Document Reviewed: 09/20/2022 [employer] Patient Education 2023 IWT. Follow Up Care 04/08/2023 11:14:40 With:CHRIS RIVERA, Shun Mirza, URL Address: [address] [place], [place] [id number]- When: Unknown [facility] [employer] 04-13-2024 Note Patient Education Nephrology Dietary Guidelines [...] ? 8 oz (237 mL) of milk, bbusmvu-vwvotqejdzxn-rxyts milk, and calcium-fortifiedfruit juice. Calcium-fortified means that [...] Spinach (cooked), rhubarb, beets, sweet potatoes, and Emirati chard. ? Peanuts. ? Potato chips, zambian fries, and baked potatoes with skin on. ? Nuts and nut products. ? Chocolate. ? If you regularly take a diuretic medicine, make sure to eat at least 1 or 2 servings of fruits or vegetables that are high in potassium each day. These include: ? Avocado. ? Banana. ? Yalobusha, prune, carrot, or tomato juice. ? Baked [...] fish oil, or vitamin B6. ? Take unpa-csi-vudznra and prescription medicines only as told by your health care provider. These include suppleme (more content not included)... [facility] 09-19-2023 History of Presen t illness Narrative Encounter Date Shoulder Knee [facility] Work Phone: 1(614) 501-927810-16-2023 Hospital Discharge instructions Patient Education 04/08/2023 11:15:31 [...] include: ?8 oz (237 mL) of milk, spdbxjr-krwnqfznblxr-hiver milk, and calcium- fortifiedfruit juice. Calcium-fortified means [...] ?Spinach (cooked), rhubarb, beets, sweet potatoes, and Emirati chard. ?Peanuts. ?Potato chips, zambian fries, and baked potatoes with skin on. ?Nuts and nut products. ?Chocolate. If you regularly take a diuretic medicine, make sure to eat at least 1 or 2 servings of fruits or vegetables that are high in potassium each day. These include: ?Avocado. ?Banana. ?Yalobusha, prune, carrot, or tomato juice. ?Baked potato. [...] magnesium, fish oil, or vitamin B6. Take qysm-ozz-eelmzzg and prescription medicines only as told by [...] Casseroles. Pizza. Lasagna. Frozen meals. Potato chips. Northern Irish fries. The items listed above may not [...] provider. Document Revised: 02/19/2022 Document Reviewed: 02/19/2022 [employer] Patient Education 2022 IWT. Follow Up Care 10/16/2022 15:04:55 With:CHRIS RIVERA, Shun Mirza, URL Address: [address] [place] [address] [place] [address] When: Unknown [facility] Maddy 09-19-2023 NoteHNO ID: [id number] Author: Antwan Soriano MD Service: ? Author [...] prn X-Ray's at next visit: No PCP: Dania Armstrong MD [address] [facility] [address] FELLOW / RESIDENT: No fellow or resident assisted in this office visit. Antwan Soriano, [facility]04-25-2023 Hospital Discharge instructions Patient Education 10/16/2022 13:00:41 [...] include: ?8 oz (237 mL) of milk, uvnbcya-iuhslyrljyow-fmeit milk, and calcium- fortifiedfruit juice. Calcium-fortified means [...] ?Spinach (cooked), rhubarb, beets, sweet potatoes, and Emirati chard. ?Peanuts. ?Potato chips, zambian fries, and baked potatoes with skin on. ?Nuts and nut products. ?Chocolate. If you regularly take a diuretic medicine, make sure to eat at least 1 or 2 servings of fruits or vegetables that are high in potassium each day. These include: ?Avocado. ?Banana. ?Yalobusha, prune, carrot, or tomato juice. ?Baked potato. [...] magnesium, fish oil, or vitamin B6. Take rwaj-rij-glaisjv and prescription medicines only as told by [...] Casseroles. Pizza. Lasagna. Frozen meals. Potato chips. Northern Irish fries. The items listed above may not [...] provider. Document Revised: 02/19/2022 Document Reviewed: 02/19/2022 [employer] Patient Education 2022 IWT. Follow Up Care 02/19/2022 10:35:10 With:CHRIS RIVERA, Shun Mirza, URL Address: [address] [place], [place] [id number]- When: Unknown [facility] [id number] NotePROCEDURE: XR FOOT RT MIN 3 VIEWS [...] Electronically authenticated by: LAURY ZEPEDA Date: 2022-08-16 18:55[facility]01-26-2023 NotePROCEDURE: XR FOOT RT MIN [...] Electronically authenticated by: LAURY ZEPEDA Date: 2022-07-19 12:30[facility]01-13-2023 NotePROCEDURE: XR FOOT RT MIN 3 VIEWS [...] Electronically authenticated by: LAURY ZEPEDA Date: 2022-07-06 15:41[facility]12-15-2022 NotePROCEDURE: XR ANKLE RT MIN [...] Electronically authenticated by: BANDAR SAENZ Date: 2022-06-07 14:32[facility]12-15-2022 NotePROCEDURE: XR ANKLE RT MIN [...] Electronically authenticated by: BANDAR SAENZ Date: 2022-06-07 14:32[facility]08-09-2022 Hospital Discharge instructions Patient Education [...] include: ?Spinach. ?Rhubarb. ?Beets. ?Potato chips and zambian fries. ?Nuts. If you regularly take a diuretic medicine, make sure to eat at least 1 2 fruits or vegetables high in potassium each day. These include: ?Avocado. ?Banana. ?Yalobusha, prune, carrot, or tomato juice. ?Baked potato. [...] Casseroles. Pizza. Lasagna. Frozen meals. Potato chips. Northern Irish fries. Summary You can reduce your risk [...] 10/05/2011 Document Revised: 09/30/2019 Document Reviewed: 05/21/2017 [employer] Patient Education 2020 IWT. Follow Up Care 01/24/2022 12:02:31 With:CHRIS RIVERA, Shun Mirza, URL Address: [address] [id number]- When: Unknown [facility] [id number] NoteSend Summary: Discharge Summary Providers: Provider RoleProvider Name Sal Perez Nicholas PrimaryHoy, Douglas M Note Recipients: Dania Armstrong MD - [phone] [] Discharge: Summary: Admission Date: .26-Sep-2021 06:01:00 [...] floor. Patient was initially started on dilaudid BRICKLAYER PAVING BRICK x24 hours and then transitioned to an [...] HAVE ANTONIO REMOVED IN 3 WKS. AT [facility] [address] [facility] 5TH [facility] ON 10/18/2021 AT 0930 WITH KENTON SANTIAGO. REHAB FACILITIES OR HOME CARE MAY REMOVE ANTONIO OR SUTURES. Wound Site: BACK (Lumbar Spine) Wound Type: surgical incision Change Dressing: daily Cleanse With: soap and water Cover With: abdominal dressing Tape With: paper tape Instructions: no lotions, creams, or tub soaks Other Instructions: PLEASE HAVE ANTONIO REMOVED IN 3 WKS. AT [facility] [address] [facility] [address]TH [facility] ON 10/18/2021 AT 0930 WITH KENTON SANTIAGO. [...] to Schedule in: 6 weeks, PLEASE CALL [phone] TO SCHEDULE YOUR APPOINTMENT FOR 5-6 WEEKS FOLLOWING YOUR SURGERY. Location: [facility] [address] [facility] 5TH [place] [address] [place] [address]/ [facility] [address], Phone Number: Office: (September,/[place]) - [phone] Discharge Medications: Home Medication NIFEdipine 30 mg [...] 1-2 tab(s) orally every (more content not included)...[facility]04-06-2022 NoteRehab: Info: Mode of Treatmentoccupational therapy; co-evaluation with PT for pt safety and to optimize pt's therapeutic potential Time IN10:00 Time OUT10:27 Total Treatment [id number] Patient in ... at end of sessionchair; alarm on Communicated with ... at end of sessionbedside nurse Patient Effortexcellent Symptoms Noted During/After Treatmentnone Patient Profile Reviewedyes Onset of Illness/Injury or Date of [id number] Reason for ReferralXLIF L3/4, 4/5;2. Navigated percutaneous [...] WFL Mobility/Tone: Bed Mobility Assessment/Interventionssupine to sit Rkukrj-fz-Ksz Beadle (Bed Mobility)standby assist; verbal cues Assistive Device (Bed Mobility)bed rails Comment, Bed MobilityVia log rolling technique Transfer Assessment/Interventionssit to stand transfer; stand to sit transfer Sit-Stand Beadle (Transfers)standby assist; verbal cues Sit-Stand Assistive Device (Transfers)no AD Stand-Sit Beadle (Transfers)standby assist; verbal cues Stand-Sit Assistive Device (Transfers)no AD Safety Issues Impacting Function (Mobility)insight into deficits/self awareness Impairments Impacting Function (Mobility)balance; pain ActivityPt completed functional household distance with SBA for safety (pt declined use of device) ADL: BADL Assessment/Interventionlower body dressing; grooming; toileting Beadle Level (Lower Body Dressing)pants/bottoms; moderate assist (50% patient effort) Position (Lower Body Dressing)edge-of-bed sitting Beadle Level (Grooming)supervision Position (Grooming)standing Comment (Grooming)Standing oral care at sink Beadle Level (Toileting)supervision Position (Toileting)standing Motor: Sitting, Static (Balance)good balance Sitting, Dynamic (Balance)good balance Ufy-mn-Oxfgg (Balance)fair balance Standing, Static (Balance)fair balance Standing, [...] Total Score17 Short Term Goals: Transfer: Established [id number] Transfer: Transfer Type Tdebapy-yb-daczy/oenlr-ut-mti; (more content not included)...[facility]04-05-2022 NotePost Operative Note: PreOp Diagnosis: Lumbar stenosis, spondylolisthesis L3-5 Post-Procedure Diagnosis: Lumbar stenosis, spondylolisthesis L3-5 Procedure: ALIF via extreme lateral approach L3/4, L4/5 with cage x 2 PSF with instrumentation L3-5 Surgeon: Dr. Richardson Resident/Fellow/Other Energy Sales Broker: Renny Steinberg Estimated Blood Loss (mL): 150 [...] Completion Last Updated: 04-Oct-2021 15:17 by Sal Richardson)[facility] 09-26-2021 History of Present illness Narrative* Jay is a pleasant 62-year-old xyepk-ksrg-udqawosr male who presents today with his for [...] not corrected for spelling or grammatical errors. ZX-Rhmfifborhgy-Jpjybtg 5FL DO Work Phone: [phone] NoteHistory of Present Illness: History Present Illness: [...] the note. I personally evaluated the patient [id number] Electronic Signatures: Sal Richardson) (Signed 29-Sep-2021 11:39) Authored: Note Completion Co-Signer: History of Present Illness, Allergies, Home Medication Review, Impression/Procedure, ERAS, Physical Exam, Consent, Note Completion Timothy Steinberg (Resident)) (Signed 26-Sep-2021 05:59) Authored: History of Present Illness, Allergies, Home Medication Review, Impression/Procedure, ERAS, Physical Exam, Consent, Note Completion Last Updated: 29-Sep-2021 11:39 by Sal Richardson)[facility] 08-25-2021 Reason for referral (narrative)* Reason for Referral: XLIF L3/4, 4/5;2. 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 Richardson Resident/Fellow/Other Energy Sales Broker: Skip/ Katalina Procedure: anterior cervical discectomy/ decompression, [...] Completion Last Updated: 27-Jun-2021 14:14 by Sal Richardson)[facility] 06-21-2021 NoteHistory & Physical Reviewed: [...] the note. I personally evaluated the patient [id number] Electronic Signatures: Sal Richardson) (Signed 27-Jun-2021 13:45) Authored: Note Completion Co-Signer: History & Physical Reviewed, ERAS, Consent, Note Completion Cheikh August (Resident)) (Signed 21-Jun-2021 06:23) Authored: History & Physical Reviewed, ERAS, Consent, Note Completion Last Updated: 27-Jun-2021 13:45 by Sal Richardson)[facility] 12-22-2020 History of Present illness [...] for spelling or grammatical errors * . XK-Iiftlwjdqrea-Kxvoyt 210 Work Phone: [phone]) 832-701605-10-2021 History of Present illness [age]wonx87 yr old male with back pain. 10/31-[facility] Work Phone: [phone]) 832-913205-10-2021 History of Present illness Narrative* 60 yr [...] foot surgeries and total knee replacement. -[facility] Work Phone: consult note* Clinical Note Date No Information [facility] Work Phone: Discharge summary* Clinical Note Date No Information [facility] Work Phone: Evaluation + Plan note Future Appointments Appointment Date:01/30/2022 09:15:00 AM Scheduled Provider:[facility]ACHAD[facility] Office Visit Appointment Date:07/31/2022 02:00:00 PM Scheduled Provider:Arely LOGAN MD Location:[facility] Appointment Type:[place] [address] [facility] [place] Evaluation + Plan note Future Appointments Appointment Date:07/31/2022 02:00:00 PM Scheduled Provider:Arely LOGAN MD Location:[facility] Appointment Type:[place] [address] [facility] evaluation + Plan note Future Appointments Appointment Date:10/16/2022 02:15:00 PM Scheduled Provider:Shun MACHADO MD Location:[facility] Appointment Type:URO Office Visit Future Scheduled Tests Radiology* XR Abdomen 1 View 02/19/22 [facility] evaluation + Plan note Future Appointments Appointment Date:02/22/2023 10:45:00 AM Scheduled Provider:Shun MACHADO MD Location:[facility] Appointment Type:URO Office Visit Future Scheduled Tests Radiology* XR Abdomen 1 View 02/19/22 [facility] evaluation + Plan note Future Appointments Appointment Date:04/13/2024 09:15:00 AM Scheduled Provider:Shun MACHADO MD Location:[facility] Appointment Type:URO Office Visit [facility] evaluation + Plan note Future Appointments Appointment Date:04/12/2025 08:15:00 AM Scheduled Provider:Shun MACHADO MD Location:[facility] Appointment Type:URO Office Visit [facility] evaluation note* Neurological: alert and oriented q8Kcuboircqpewvxw: Spine Exam:Dressings CDINo bruising, swelling, or erythemaL1: [...] appearing, no acute distress resting in bed [facility] noteNo assessment information available [facility] Work Phone: Evaluation note* Type Assessment Date No Information [facility] Work Phone: History and physical note* Clinical Note Date No Information [facility] Work Phone: History of Present illness Narrative* [...] not corrected for spelling or grammatical errors. WD-Shicznmsbpsn-Tmunyeg 5F DO Work Phone: Hospital course Narrative No data available for this section [facility] [place] [facility] Discharge instructions* Activity:activity as tolerated and PROGRESSIVE WALKING AT LEAST 2X/DAY. May not shower NO SHOWERING UNTIL ANTNOIO REMOVED IN 3WKS. May not return to [...] PLEASE HAVE ANTONIO REMOVED IN 3WKS. AT [facility] [address] [facility]TH FLOOR ON 10/18/2021 AT 0930 WITH K[place]ON SANTIAGO.REHAB FACILITIES OR HOME CARE MAY REMOVE ANTONIO OR SUTURES. * Wound Care 2:Wound Site: BACK (Lumbar Spine)Wound Type: surgical incisionChange Dressing: dailyCleanse With: soap and waterCover With: abdominal dressingTape With: paper tapeInstructions: no lotions,creams, or tub soaksOther Instructions: PLEASE HAVE ANTONIO REMOVED IN 3 WKS. AT [facility] [address] [facility] 5TH FLOOR ON 10/18/2021 AT [...] to Schedule in: 6 weeks, PLEASE CALL [phone] TO SCHEDULE YOUR APPOINTMENT FOR 5-6 WEEKS FOLLOWING YOUR SURGERY.Location: [facility] [address] FLOOR [place] [address] [facility]/ [facility] [address], [phone] Number: Office: (September,./[place]) - [phone]: Please Call Emmie Gallagher RN at [phone] For Any Post-Op Questions [facility] No data available for this section General [facility] [place] Instructions* Date Instruction Additional Infor mation No Information [facility] Work Phone: Progress note No data available for this section [facility] [place] Progress note* Clinical Note Date No Information [facility] Work Phone: Reason for referral (narrative)* Reason For Referral No Information [facility] Work Phone: Summary Purpose Family History No Family History Records Found Relationship Condition Age at Onset Recorded Date/T mariana Not Specified Hypertension Unknown father Malignant neoplasm Unknown Relationship Condition Age at Onset Recorded Date/T mariana mother Hypertension Unknown father Malignant neoplasm Unknown Family Member Type Diagnosis Age At Onset No Information Advance Directives No Advanced Directives Records Found [...] weeks. He lives far away, in the [facility]. If he gets better with the injections, perhaps we can watch oykw-rkw-uxm and this is obviously what we are [...] weeks. He lives far away, in the [facility]. If he gets better with the injections, perhaps we can watch itma-alq-xkv and this is obviously what we are [...] 04/12/2021 is available from the [facility] on a CD. This shows evidence of [...] section and content) DATE CREATED AUTHOR 01/14/2021 [facility] DATE CREATED AUTHOR AUTHOR'S ORGANIZ ATION 03/11/2021 [facility] DATE CREATED AUTHOR AUTHOR'S ORGANIZ ATION 08/06/2021 [facility][note 2] DATE CREATED AUTHOR AUTHOR'S ORGANIZ ATION 05/03/2022 [facility] DATE CREATED AUTHOR AUTHOR'S ORGANIZ ATION 05/05/2022 [facility] DATE CREATED AUTHOR AUTHOR'S ORGANIZ ATION 11/30/2022 [facility] DATE CREATED AUTHOR AUTHOR'S ORGANIZ ATION 03/14/2023 [facility] DATE CREATED AUTHOR AUTHOR'S ORGANIZ ATION 08/28/2023 [facility] EPIC DATE CREATED AUTHOR AUTHOR'S ORGANIZ ATION 04/15/2024 [place] DATE CREATED AUTHOR AUTHOR'S ORGANIZ ATION 07/16/2024 [facility] DATE CREATED AUTHOR AUTHOR'S ORGANIZ ATION 10/27/2024 [facility] <item> Privacy Markings (unrecogniz ed [...] Armstrong MD Primary Care Provider Active Start: October 13, 2024 End: October 13, 2024 TAD Nielsen Attending Provider Active Start: October 13, 2024 End: October 13, 2024 Team Status: Active Member Role Status Gary Armstrong MD Primary Care Provider Active Start: December 27, 2023 Honorio Luo DO Attending Provider Active Sta rt: December 27, 2023 Team Status: Inactive Member Role Status Gary Armstrong MD Primary Care Provider Active Start: March 04, 2024 End: March 04, 2024 TDA Nielsen Attending Provider Active Start: March 04, [...] BE BASED ON THE PRIMARY CLINICAL RECORDS. [employer] [facility]. provides no warranty or guarantee of the accuracy or completeness of information in this document.
== END 2024-12-19 10:23 | disposition home or self-care (01) ==
LOC: RAD 10:25
PROVIDERS: PCP Family Medicine; Visit Provider Podiatrist Foot & Ankle Surgery
DX: M79.671 Pain in right foot (principal); Z98.890 Other specified postprocedural states
CPT/HCPCS: 73630

== ENCOUNTER 2025-01-04 07:51 | Outpatient (OUT) | payer MEDICARE, SELFPAY ==
--- NOTE | 2025-01-04 07:55 | MR_ITS ---
The [address] [address] Patient Name: RG SIMEON MRN: [id number] date: 1960 Sex: M Assigned Patient Location: MRI Current Patient Location: Accession/Order Number: [id number] Exam Date: 01/05/2025 07:51 Report Date: 01/05/2025 07:58 At the request of: SIMONE SAM MD Procedure: MR cervical spine wo con EXAMINATION: MRI OF THE CERVICAL SPINE WITHOUT CONTRAST CLINICAL DATA: Cervical Radiculopathy TECHNIQUE: Multiecho imaging was performed in the sagittal and axial plane without contrast administration. FINDINGS: The craniocervical junction is maintained. Minimal straightening. Evidence of prior ACDF C5-C7. Mild loss of height T1 noted chronic without abnormal edema. Otherwise the cervical vertebral heights, alignment and bone marrow signal is unremarkable. Cervical cord demonstrate normal signal and morphology. Prevertebral and paraspinal soft tissues are unremarkable. C2-C3: Minimal endplate spurring extending both foraminal zones. Mild facet arthropathy. Minimal foraminal narrowing. Canal is patent. C3-C4: Broad-based disc osteophyte complex. Uncovertebral spurring. Mild bilateral neural from narrowing. Mild central stenosis. C4-C5: Broad-based disc bulge with bilateral uncal vertebral spurring causing moderate right and udjt-mv-mjaffkso left-sided neural foraminal narrowing. Canal patent. C5-6: Prior discectomy. Minimal diffuse ossific bridging noted and uncovertebral spurring, prominent left-sided. This causes minimal right-sided mild left-sided neural foraminal narrowing. Canal is patent. C6-7: Discectomy and fusion. Diffuse ossific bridging and uncovertebral spur formation identified causing mild central canal and mild bilateral neural foramina narrowing. C7-T1: Mild uncovertebral spurring and pdnf-wy-bqapofwf facet arthropathy. This causes moderate bilateral neural from narrowing. Mild central canal stenosis. . MR/MR cervical spine wo con IMPRESSION: [id number] DEGENERATIVE CHANGES WITH UP TO MILD CENTRAL CANAL NARROWING. JUNCTIONAL DEGENERATIVE CHANGES AND FORAMINAL ENCROACHMENT DUE TO UNCOVERTEBRAL SPURRING GREATEST RIGHT AT C4-C5 Impression dictated by: Wallace Brewster M.D. 01/05/2025 7:58 AM Dictation Location: [place] [address] Electronically authenticated by: [id number] Y Date: 01/05/2025 07:58
== END 2025-01-04 07:52 | disposition home or self-care (01) ==
LOC: MRI 07:52
PROVIDERS: PCP Family Medicine; Visit Provider Pain Medicine Interventional Pain Medicine
DX: M54.12 Radiculopathy, cervical region (principal); M50.30 Other cervical disc degeneration, unspecified cervical region
CPT/HCPCS: 72141

== ENCOUNTER 2025-04-02 08:05 | Outpatient (OUT) | payer MEDICARE, SELFPAY ==
--- OUTSIDE RECORDS SUMMARY | 2025-04-02 08:11 | XMS_ITS | Clinical Summary ---
Author Organization [facility] Address [address] [place] [address] Phone Care Team Providers Care New Media Strategist Name Role Phone Yassine Mobley MD Primary Care Provider [phone] Social History Tobacco Use Types Packs/Day Years Used Date Smoking Tobacco: Never Assessed Sex and Gender Information Value Date Recorded Sex Assigned at Not on file Legal Sex Male 5:51 AM EST Gender Identity Not on file Sexual Orientation Not on file Last Filed Vital Signs Vital Sign Reading Time Taken Comments Blood Pressure 189/86 03/22/2021 9:15 AM EDT Pulse 67 03/22/2021 9:15 AM EDT Temperature 36.7 C (98.1 F) 03/22/2021 9:15 AM EDT Respiratory Rate 16 03/22/2021 9:15 AM EDT Oxygen Saturation - - Inhaled Oxygen Concentration - - Weight 98.9 kg (218 lb 0.6 oz) 06/21/2021 6:40 A M EST Height 175.2 cm (5' 8.98 ) 06/21/2021 6:40 AM ES T Body Mass Index 32.22 06/21/2021 6:40 AM EST Plan of Treatment Health Maintenance Due Date Last Done Comments CT Colonography 1960 Colonoscopy 1960 Colorectal Cancer Screening 1960 FIT-DNA (Cologuard) 1960 FIT 1960 HIV Screening 1960 Lipid Panel 1960 Sigmoidoscopy 1960 Yearly Adult Physical 1960 MMR Vaccines (1 of 1 - Stand kennedy series) 1962 Hepatitis C Screening 1979 DTaP/Tdap/Td Vaccines (1 - Tdap) 1983 PSA Prostate Cancer Screening 2011 Pneumococcal Vaccine (1 of 1 - PCV) 2011 Zoster Vaccines (1 of 2) 2011 COVID-19 Vaccine (1 - 2023-2 5 season) 2025 Influenza Vaccine (#1) 2025 RSV High Risk: (Elderly (60+ ) or Population) (1 - 1-dose 75+ series) 2036 HIB Vaccines Aged Out No longer eligi ble based on patient's age to complete this topic HPV Vaccines Aged Out No longer eligi ble based on patient's age to complete this topic Hepatitis A Vaccines Aged Out No long er eligible based on patient's age to complete this topic Hepatitis B Vaccines Aged Out No long er eligible based on patient's age to complete this topic IPV Vaccines Aged Out No longer eligi ble based on patient's age to complete this topic Meningococcal Vaccine Aged Out No tanika veronica eligible based on patient's age to complete this topic Rotavirus Vaccines Aged Out No longer eligible based on patient's age to complete this topic Medical Devices Implanted Type Area [employer] Lead Device Identifier Shelf Expiration Date Model / Serial / Lot Bone Matrix, Osteocel Pro Cellular, Medium Case [id number] Implanted:Qty: 1 on 06/21/2021 by Sal Curiel MD [employer] [id number] / [id number] / Description:Converted from [facility]. Please see archived information for full log information. Bone Matrix, Osteocel Pro Cellular, Large Case [id number] Implanted:Qty: 1 on 09/26/2021 by Sal Curiel MD [employer] 04/08/2026 [id number] / [id number] / Description:Converted from [facility]. Please see archived information for full log information. Cohere Cervical, [id number] Case [id number] Implanted:Qty: 1 on 06/21/2021 by Sal Curiel MD Implant [employer] 12/01/2025 [id number] / / [id number] Description:Converted from [facility]. Please see archived information for full log information. Additional Information:per previous bill only jdr 06/22/2021 Cohere Cervical, [id number] Case [id number] Implanted:Qty: 1 on 06/21/2021 by Sal Curiel MD Implant [employer] 12/13/2025 [id number] / / [id number] Description:Converted from [facility]. Please see archived information for full log information. Additional Information:per previous bill only jdr 06/22/2021 13 Mm Screw Case [id number] Implanted:Qty: 6 on 06/21/2021 by Sal Curiel MD Implant [employer] [id number] / / Description:Converted from [facility]. Please see archived information for full log information. Additional Information:per oracle jdr 06/22/2021 36 Plate Case [id number] Implanted:Qty: 1 on 06/21/2021 by Sal Curiel MD Implant [employer] [id number] / / Description:Converted from [facility]. Please see archived information for full log information. Additional Information:per oracle jdr 06/22/2021 [place] Pin, 14mm Case [id number] Implanted:Qty: 2 on 06/21/2021 by Sal Curiel MD Implant [employer] [id number] / / Description:Converted from [facility]. Please see archived information for full log information. Screw, Dayanara Lynch Red, 6.5x45mm Poly 2c Case [id number] Implanted:Qty: 6 on 09/26/2021 by Sal Curiel MD Implant [employer] [id number] / / Description:Converted from [facility]. Please see archived information for full log information. William, Dayanara Mas, 5.5 X 80mm, Lordotic Case [id number] Implanted:Qty: 2 on 09/26/2021 by Sal Curiel MD Implant [employer] [id number] / / Description:Converted from [facility]. Please see archived information for full log information. Pin, Percutaneous, 150mm, Stealth [place] Case [id number] Implanted:Qty: 1 on 09/26/2021 by Sal Curiel MD Implant [employer] 08/22/2024 [id number] / / [id number] Description:Converted from [facility]. Please see archived information for full log information. Advena Electrode Sterrile Alligtor Clip Case [id number] Implanted:Qty: 1 on 09/26/2021 by Sal Curiel MD Implant 09/06/2023 [id number] / / Description:Converted from [facility]. Please see archived information for full log information. Additional Information:per oracle jdr 09/27/2021 Screw, Reline Lock, 5.5mm Open [place] Case [id number] Implanted:Qty: 6 on 09/26/2021 by Sal Curiel MD Neuro Interventional Implant [employer] [id number] / / Description:Converted from [facility]. Please see archived information for full log information. Spacer, Modulus Xlw, [id number], 10 Deg Case [id number] Implanted:Qty: 1 on 09/26/2021 by Sal Curiel MD Spinal Hardware [employer] 08/03/2026 [id number] / / [id number] Description:Converted from [facility]. Please see archived information for full log information. Spacer, Modulus Xlw, [id number], 10 Deg Case [id number] Implanted:Qty: 1 on 09/26/2021 by Sal Curiel MD Spinal [employer] 12/11/2025 [id number] / / [id number] Description:Converted from [facility]. Please see archived information for full log information. Care Teams New Media Strategist Relationship Specialty Start Date End Date Yassine Mobley MD [address] [facility] [place] [address] PCP - General 06/20/21
--- OUTSIDE RECORDS SUMMARY | 2025-04-02 08:18 | XMS_ITS | CCD ---
Author Organization [facility] Care Team Providers Care Aligner Name Role Phone None, No PCP Unavailable Unavailable Unavailable Unavailable Dania Armstrong M Unavailable Dania Armstrong M Unavailable Sal Richardson Unavailable Kenton Lawson Randy Unavailable Unavailabl e Leandra Dania Primary Care Physician MD Dania Armstrong Primary Care Provider [phone] MD Shun Machado Attending Provider DEBRA, Dr. SAL COLEMAN Attending Unavail able Shevchik, Mr. Suarez Attending Unavailabl e Hoy, Dania Arely Primary Care Unavailable Hoy, Dania Arely Primary Care Unavailable Shevchik, Mr. Suarez Attending Unavailabl e Hoy, Dania Arely Primary Care Unavailable Shevchik, Mr. Suarez Attending Unavailabl e Self, Referral Referring Unavailable Hoy, Dania Arely Primary Care Unavailable DEBRA, Dr. SAL [...] able MD Dania Armstrong Primary Care Provider [phone] MD Dmitriy De Leon Attending Provider [phone] MD Dania Armstrong Primary Care Provider [phone] MD Dmitriy De Leon Attending Provider [phone] JENI SAEED Admitting Unavailable ZIEBMALIKA, DR [...] HOY ., DR VENTURA Primary Care Unavailable JENI SAEED Admitting Unavailable JENI SAEED Attending Unavailable ZIEBER, DR LAURY Costello Consulting Unavailable HIGHLJENI FRANKLIN Consulting Unavailable HOY ., DR VENTURA Admitting [...] Unavailable HIGHLANDER, JENI Albrecht Consulting Unavailable YAAKOVCHARLES Consulting Unavailable ROCIO ., RADHA HANCOCK Consulting [...] DR VENTURA Admitting Unavailable HOY ., DR VENUTRA Attending Unavailable HOY ., DR VENTURA Consulting Unavailable BROWNBANDAR Consulting Unavailable HOY ., DR VENTURA Attending [...] Unavailable MD Dania Armstrong Primary Care Provider MD Hudson De Leon Attending Provider ANTWAN SORIANO Attending Unavailable DANIA ARMSTRONG Primary Care Unavailable MD Dania Armstrong Primary Care Provider TAD Manriquez Attending Provider MD Dania Armstrong Primary Care Provider ObTAD almeida Attending Provider MD Dania Armstrong Primary Care Provider TAD Manriquez Attending Provider Fidel Narayan Attending Unavailable Fidel Narayan Referring Unavailable Dania Armstrong Primary Care Unavailable Fidel Narayan MD Unavailable Unavailable Dania Armstrong MD Primary Care Provider Obermeymalika RV DETAILER-C, Sabrina Langley Attending Provider Unallocated , Noms Provider Primary Care Provi vishal THERESA LANGE Attending Unavailable Dania Armstrong MD Primary Care Provider Obermdoug SAVAGE-C, Sabrina Langley Attending Provider Dania Armstrong Primary Care Unavailable ObSabrina almeida Admitting Unavailable ObSabrina almeida Attending Unavailable Dania Armstrong Primary Care Unavailable ObSabrina almeida Admitting Unavailable ObSabrina almeida Attending Unavailable hSun MACHADO Attending Unavailable Shun MACHADO Attending Unavailable Allergies Allergy Classification Reported Allergen(s) Allergy Type Date of Onset Reaction(s) Facility (18 sources) Penicillins; Translations: [Penicillins] Allergy to drug (finding) 7 [facility] Work Phone: (7 sources) Penicillin; Translations: [penicillin] Drug Allergy Eruption of skin (disorder) [facility] (2 sources) oxyCODONE Drug Allergy 1 [facility] (2 sources) Penicillins Drug allergy (disorder) 7 [facility] (2 sources) Penicillins Drug Allergy 7 [facility] (1 source) Penicillins Drug allergy (disorder) 2 [facility] Medications Current Medications Medication Drug Class(es) Dates Sig (Normalized) Sig (Original) acetaminophen 325 mg / oxyCODONE hydrochloride 5 mg oral tablet (2 sources) Opioid Agonist Start: 01-19-2022 take 1 tablet by mouth twice daily Percocet 5 mg-325 mg oral tablet 1 tab(s), Oral, BID, Refill(s) 0 Start Date: 01/19/22 Status: Ordered alendronic acid 70 mg oral tablet (2 sources) Bisphosphonate take 1 tablet by mouth once daily alendronate (Fosamax) 70 MG tablet 1 tablet 30 minutes before the first food, beverage or medicine of the day with plain water Orally Active Ascorbic Acid (3 sources) Vitamin C Start: 04-13-2024 Vitamin C Daily, Refills(s) 0 Start Date: 04/13/24 Status: Ordered Start: 03-28-2023 ascorbic acid (Vitamin C) 250 MG tablet every 12 (twelve) hours 03/28/2023 Active biotin 10 mg oral tablet (2 sources) Start: 03-28-2023 biotin 10 MG t ablet 1 (one) time each day at the same time 03/28/2023 Active Celebrex (6 sources) Nonsteroidal Anti-inflammatory Drug Start: 10-16-2022 Celebrex Oral Sta rt Date: 10/16/22 Status: Ordered Start: 10-16-2022 Celecoxib (LYNN EBREX PO) Take by mouth 10/16/2022 Active take 1 capsule by mo ut twice daily at mealtime celecoxib (CeleBREX) 200 MG capsule 1 capsule with food Orally twice daily Active ciprofloxacin 500 mg oral tablet (20 sources) Quinolone Antimicrobial Start: 02-15-2022 take 1 tablet by mouth every two hours Start: 02-15-2022 take 1 tablet by lianna every two hours Ciprofloxacin Hcl (Cipro) 500 [...] sodium 75 mg delayed release oral tablet (5 sources) Nonsteroidal Anti-inflammatory Drug Start: 04-13-2024 diclofenac (Voltaren) 75 MG EC tablet 75 mg 04/13/2024 Active Start: 05-02-2022 Diclofenac Sod ium 1 % External Gel APPLY SPARINGLY TO AFFECTED AREA(S) ONCE DAILY Quantity: 1 Refills: 2 Ordered: 02-May-2022 Kenton Lawson PA-C Start : 02-May-2022 Active irbesartan 300 mg oral tablet (17 sources) Angiotensin 2 Receptor Jennifer Start: 01-16-2022 take 1 tablet by mouth once daily at lunch losartan potassium 25 mg oral tablet (2 sources) Angiotensin 2 Receptor Jennifer End: 02-02-2025 losartan (Cozaar) 25 MG tablet 1 (one) time each day at the same time 02/02/2025 Discontinued NIFEdipine 30 mg osmotic 24 hr extended release oral tablet (20 sources) Dihydropyridine Calcium Channel Jennifer Start: 01-19-2022 take 1 tablet by mouth once daily NIFEdipine 30 mg ER Tab 30 mg = 1 tab(s), Oral, Daily, Refills(s) 0 Start Date: 01/19/22 Status: Ordered Start: 01-17-2022 take 1 tablet by lianna th once daily NIFEdipine XL (Procardia XL) 30 MG 24 hr tablet Take 30 mg by mouth Daily 12/30/2024 Active NIFEdipine (Proc ardia) 10 MG capsule 1 (one) time each day at the same time Active NIFEdipine CC (A dalat CC) 30 MG 24 hr tablet 1 (one) time each day at the same time Active pantoprazole 40 mg delayed release oral tablet (19 sources) Proton Pump Inhibitor Start: 04-15-2019 take 1 tablet by mouth once daily potassium citrate 10 meq extended release oral tablet (2 sources) Start: 10-16-2022 End: 10-11-2023 potassium CITRATE 10 mEq ER Tab 20 mEq, 2 tab(s), Oral, BID for 30 day(s), 120 tab(s), Refill(s) 11, [facility], 170, cm, 10/16/22 14:31:00 EDT, Height/Length [...] Sal Richardson MD Start : 03-Aug-2021 Active traMADol hydrochloride 50 mg oral tablet (2 sources) Opioid Agonist traMADol (Ultram ) 50 MG tablet 1 (one) time each day at the same time Active Vital-D (1 source) Start: 04-13-2024 Vital-D Oral, Daily, Refill(s) 0 Start Date: 04/13/24 Status: Ordered vitamin b12 1 mg extended release oral tablet (2 sources) Vitamin B12 Start: 03-28-2023 Cyanocobalamin ER 1000 MCG tablet controlled-release 1 (one) time each day at the same time 03/28/2023 Active vitamin b6 100 mg oral tablet (2 sources) Start: 03-28-2023 pyridoxine (B-6) 100 MG tablet every 12 (twelve) hours 03/28/2023 Active Zinc (1 source) Start: 04-13-2024 Zinc Refills(s) 0 Start Date: 04/13/24 Status: Ordered Completed/Discontinued Medications Medication Drug Class(es) Dates Sig (Normalized) Sig (Original) acetaminophen 325 mg / HYDROcodone bitartrate 5 mg oral tablet (11 sources) Opioid Agonist Start: 01-19-2022 End: 02-15-2022 take 1 tablet by mouth every four to six hours as needed for pain Hydrocodone-Acetami nophen 5-325 mg tablet Discontinued 1 TAB PO EVERY 4-6 HOURS as needed for pain 10 3 January 19, 2022 February 15, [...] Margo MARTINEZ-Azucena GUSMAN Start : 02-Jun-2021 Active gabapentin 300 mg oral capsule (15 sources) Anti-epileptic Agent Start: 03-16-2021 take 1 tablet by mouth once Gabapentin 300 MG Oral Capsule Take 1 Tab by mouth daily per titration schedule, scheduled faxed to pharmacy Quantity: 180 Refills: 0 Ordered: 16-Mar-2021 Nazario Holloway MD Start : 16-Mar-2021 Active hydroxychloroquine sulfate 200 mg oral tablet (19 sources) Antimalarial, Antirheumatic Agent Start: 04-15-2019 End: 02-15-2022 take 1 tablet by mouth twice daily Hydroxychloroquine 200 mg tablet Discontinued 200 MG PO Twice daily January 17, 2022 12:00am February 15, 2022 7:49am ketorolac tromethamine 10 mg oral tablet (11 sources) Nonsteroidal Anti-inflammatory Drug, Cyclooxygenase Inhibitor Start: [...] Active oxybutynin chloride 5 mg oral tablet (11 sources) Cholinergic Muscarinic Antagonist Start: 01-19-2022 End: [...] activity., # 30 tab(s), Refills(s) 3, Pharmacy: [facility], 170, cm, 10/16/22 14:31:00 EDT, Height/Length Dosing, 104.3, kg, 10/16/22 14:31:00 EDT, Weight Dosing Start Date: 10/16/22 Status: Ordered tamsulosin hydrochloride 0.4 mg oral capsule (11 sources) alpha-Adrenergic Jennifer Start: 01-17-2022 End: 02-15-2022 [...] quadrant pain] Onset: 12-09-2021 Episodic Allergic reactions (9 sources) Eczema; Translations: [Allergy status to penicillin] Onset: 09-27-2021 01-19-2022 Episodic Biliary tract disease (5 sources) Cholesterolosis of gallbladder; Translations: [Cholecystitis, unspecified] Onset: 01-08-2022 Episodic Calculus of urinary tract (20 sources) Kidney stone; Translations: [Calculus of kidney] Onset: 06-02-2021 Resolved: 04-15-2019 04-15-2019 Episodic Comment on above: Problem List clean-u p per request of Phys. EHR Cmte Complications of surgical procedures or medical care (5 sources) Other intraoperative and postprocedural complications and disorders of the musculoskeletal system; Translations: [Pseudarthrosis after fusion or arthrodesis] Onset: 09-03-2022 01-22-2025 Episodic Diverticulosis and diverticulitis (14 sources) Diverticular disease; Translations: [Diverticulitis] Onset: 01-22-2025 Resolved: 04-15-2019 04-15-2019 Chronic Esophageal disorders (2 sources) Gastro-esophageal reflux disease without esophagitis; Translations: [Gastro-esophageal reflux disease without esophagitis] Onset: 09-27-2021 Chronic Essential hypertension (11 sources) Hypertensive disorder; Translations: [Essential (primary) hypertension] Onset: 09-27-2021 04-15-2019 Chronic Genitourinary symptoms and ill-defined conditions (5 sources) Abnormal urinary product; Translations: [Hypocitraturia] Onset: 10-16-2022 Episodic Headache; including migraine (8 sources) Migraine; Translations: [Migraine, unspecified, not intractable, without status migrainosus] Onset: 01-22-2025 01-19-2022 Chronic Hyperplasia of prostate (12 sources) Benign prostatic hyperplasia; Translations: [Benign prostatic hypertrophy without outflow obstruction] Onset: 01-30-2022 04-15-2019 Chronic Melanomas of skin (14 sources) Malignant melanoma of back; Translations: [Malignant melanoma of skin] Onset: 01-22-2025 Resolved: 05-15-2019 05-16-2019 Chronic Nausea and vomiting (10 sources) Nausea; Translations: [Nausea] Onset: 01-11-2022 Episodic Neoplasms of unspecified nature or uncertain behavior (8 sources) Neoplasm of uncertain behavior of skin; Translations: [Neoplasm of uncertain behavior of skin] Onset: 01-22-2025 04-15-2019 Episodic Osteoarthritis (20 sources) Osteoarthritis; Translations: [Primary osteoarthritis, right ankle and foot] Onset: 08-16-2022 04-15-2019 Chronic Osteoporosis (1 source) Senile osteoporosis; Translations: [Age-related osteoporosis without current pathological fracture] 02-02-2025 Chronic Other acquired deformities (1 source) Contracture, right ankle; Translations: [CONTRACTURE RIGHT ANKLE] Onset: 06-21-2022 Chronic Other acquired deformities (17 sources) Lumbar spondylolisthesis; Translations: [Acquired spondylolisthesis] Onset: 09-19-2021 Episodic Other acquired deformities (2 sources) Spondylolisthesis, lumbar region; Translations: [Spondylolisthesis, lumbar region] Onset: 09-19-2021 Episodic Other acquired deformities (2 sources) Acquired spondylolisthesis; Translations: [Spondylolisthesis, site unspecified] Onset: 01-22-2025 01-22-2025 Episodic Other circulatory disease (9 sources) Raynaud's disease; Translations: [Raynaud's syndrome without gangrene] Onset: 01-22-2025 01-19-2022 Chronic Other circulatory disease (1 source) [...] Onset: 06-02-2021 Chronic Other connective tissue disease (2 sources) History of right total knee replacement; Translations: [Presence of right artificial knee joint] Onset: 01-22-2025 01-22-2025 Chronic Other connective tissue disease (1 source) Arthrodesis status; Translations: [Arthrodesis status] Onset: 05-02-2022 Episodic Other connective tissue disease (4 sources) Digital mucous cyst; Translations: [Ganglion, unspecified hand] Onset: 01-22-2025 01-22-2025 Episodic Other connective tissue disease (2 sources) Nodule in muscle; Translations: [Disorder of muscle, unspecified] Onset: 01-22-2025 01-22-2025 Episodic Other connective tissue disease (2 sources) Pain in left foot; Translations: [Pain in left foot] Onset: 01-22-2025 01-22-2025 Episodic Other connective tissue disease (2 sources) Pain in right foot; Translations: [Pain in right foot] Onset: 01-22-2025 01-22-2025 Episodic Other connective tissue disease (2 sources) Tear of right rotator cuff; Translations: [Unspecified rotator cuff tear or rupture of right shoulder, not specified as traumatic] Onset: 01-22-2025 01-22-2025 Episodic Other gastrointestinal disorders (1 source) Abnormal feces; Translations: [Other fecal abnormalities] Onset: 01-24-2022 Episodic Other gastrointestinal disorders (8 sources) Loose stool; Translations: [Other fecal abnormalities] Onset: 01-22-2025 01-24-2022 Episodic Other hereditary and degenerative nervous system conditions (8 sources) Essential tremor; Translations: [Essential tremor] Onset: 01-22-2025 01-19-2022 Chronic Other hereditary and degenerative nervous system conditions (1 source) Myelopathy in diseases classified elsewhere; Translations: [Myelopathy in diseases classified elsewhere] Onset: 06-21-2021 Chronic Other inflammatory condition of skin (9 sources) Lupus erythematosus; Translations: [Discoid lupus erythematosus] Onset: 01-22-2025 04-15-2019 Chronic Other male genital disorders (8 sources) Male erectile dysfunction, unspecified; Translations: [Erectile dysfunction] Onset: 10-16-2022 Chronic Other nervous system disorders (1 source) Chronic pain syndrome; Translations: [Chronic pain syndrome] Onset: 09-19-2021 Chronic Other nervous system disorders (8 sources) Tremor; Translations: [Tremor, unspecified] Onset: 01-22-2025 04-15-2019 Episodic Other non-traumatic joint disorders (1 source) Osteophyte, vertebrae; Translations: [Osteophyte, vertebrae] Onset: 06-21-2021 Chronic Other non-traumatic joint disorders (6 sources) Pain in right shoulder Onset: 07-05-2023 Episodic Other non-traumatic joint disorders (6 sources) Pain in left shoulder Onset: 07-05-2023 Episodic Other non-traumatic joint disorders (2 sources) Arthralgia of the ankle and/or foot; Translations: [Pain in right ankle and joints of right foot] Onset: 01-22-2025 01-22-2025 Episodic Other nutritional; endocrine; and metabolic disorders (12 sources) Body mass index 30+ - obesity; Translations: [Body mass index (BMI) 33.0-33.9, adult] Onset: 01-22-2025 01-24-2022 Chronic Other nutritional; endocrine; and metabolic [...] conditions (not mental disorders or infectious disease) (11 sources) Abnormal findings diagnostic imaging of liver+biliary tract; Translations: [Abnormal findings on diagnostic imaging of liver and biliary tract] Onset: 01-24-2022 Episodic Other skin disorders (2 sources) Onycholysis; Translations: [Onycholysis] Onset: 01-22-2025 01-22-2025 Episodic Residual codes; unclassified (1 source) Presence of functional implant, unspecified; Translations: [PRESENCE FUNCTIONAL IMPLANT UNS] Onset: 06-21-2022 Chronic Residual codes; unclassified (2 sources) Device in situ; Translations: [Presence of functional implant, unspecified] Onset: 01-22-2025 01-22-2025 Chronic Residual codes; unclassified (1 source) Family history of kidney disease; Translations: [Family history of disorders of kidney and ureter] Onset: 01-30-2022 Episodic Residual codes; unclassified (6 sources) Family history of prostate cancer; Translations: [Family history of malignant neoplasm of prostate] Onset: 01-22-2025 02-19-2022 Episodic Residual codes; unclassified (3 sources) [...] 09-27-2021 Episodic Other aftercare (2 sources) [facility] [place] [facility] therapy; Translations: [Other [place] [facility] [place] ([place] drug therapy] Onset: 06-02-2021 Episodic Other [...] Serum or PlasmaOrdered By: Sabrina Manriquez on 03-01-2025 ALT [Catalytic activity/Vol] 24 U/L Normal 7-52 [facility] Comment on above: Performed By: #### C 4, CH50, C3 #### [facility] , #### CBC, ADDONUAPLUS, ESR, CMP, CRP #### [facility] [address] [place] [address] [place] Albumin [Mass/volume] in Ser um or Plasma by Bromocresol green (BCG) dye binding methoOrdered By: Sabrina Manriquez on 03-01-2025 Albumin BCG dye [Mass/Vol] 4.1 g/dL 3.5-5.7 [facility] Alkaline phosphatase [Enzyma tic activity/volume] in Serum or PlasmaOrdered By: Sabrina Manriquez on 03-01-2025 ALP [Catalytic activity/Vol] 105 U/L High 34-104 [facility] Comment on above: Performed By: #### C 4, CH50, C3 #### [facility] , #### CBC, ADDONUAPLUS, ESR, CMP, CRP #### [facility] [address] Appearance of UrineOrdered B y: Sabrina Manriquez on 03-01-2025 Appearance (U) Clear Normal Clear [facility] Comment on above: Order Comment: Name Collection Type:: Clean-Voided Midstream Performed By: #### C 4, CH50, C3 #### [facility] , #### CBC, ADDONUAPLUS, ESR, CMP, CRP #### [facility] [address] [place] [address] Aspartate aminotransferase [ Enzymatic activity/volume] in Serum or PlasmaOrdered By: Sabrina Manriquez on 03-01-2025 AST [Catalytic activity/Vol] 21 U/L Normal 13-39 [facility] Comment on above: Performed By: #### C 4, CH50, C3 #### [facility] , #### CBC, ADDONUAPLUS, ESR, CMP, CRP #### [address] Bacteria [Presence] in Urine by AutomatedOrdered By: Sabrina Manriquez on 03-01-2025 Bacteria Auto Ql (U) None seen [HPF] None Seen [facility] Basophils [#/volume] in Bloo d by Automated countOrdered By: Sabrina Manriquez on 03-01-2025 Basophils (Bld) [#/Vol] 0.1 10*3/uL Normal 0.0-0.2 [facility] Comment on above: Performed By: #### C 4, CH50, C3 #### [facility] , #### CBC, CRP, ESR, CMP, ADDONUAPLUS #### [place] [address] [place] Basophils/100 leukocytes in Blood by Automated countOrdered By: Sabrina Manriquez on 03-01-2025 Basophils/100 WBC (Bld) 0.7 % Normal . [facility] Comment on above: Performed By: #### C 4, CH50, C3 #### [facility] , #### CBC, CRP, ESR, CMP, ADDONUAPLUS #### [address] Bilirubin Test strip Ql (U)O rdered By: Sabrina Manriquez on 03-01-2025 Bilirubin Ql (U) Negative Negative [facility] Bilirubin.total [Mass/volume ] in Serum or PlasmaOrdered By: Sabrina Manriquez on 03-01-2025 Bilirubin [Mass/Vol] 0.5 mg/dL Normal 0.3-1.0 [facility] Comment on above: Performed By: #### C 4, CH50, C3 #### [facility] , #### CBC, ADDONUAPLUS, ESR, CMP, CRP #### [facility] [address] [place] [id number] [place] C reactive protein [Mass/vol ume] in Serum or PlasmaOrdered By: Sabrina Manriquez on 03-01-2025 CRP [Mass/Vol] < 0.5 mg/dL 0.0-0.5 [facility] C-Reactive Proteinon 025 CRP [Mass/Vol] mg/L Normal 0.0-0.5 [facility] Comment on above: Result Comment: PERF ORMED BY: [place] [address] PATHOLOGIST MOTOR VEHICLE EMISSIONS INSPECTOR ALBANIA WAGNER M.D. Performed By: #### C 4, CH50, C3 #### [facility] , #### CBC, CRP, ESR, CMP, ADDONUAPLUS #### [facility] [address] [place] [address] [place] Calcium [Mass/volume] in Ser um or PlasmaOrdered By: Sabrina Manriquez on 03-01-2025 Calcium [Mass/Vol] 9.0 mg/dL Normal 8.6-10.3 [facility] Comment on above: Performed By: #### C 4, CH50, C3 #### [facility] , #### CBC, ADDONUAPLUS, ESR, CMP, CRP #### [facility] [address] [place] [address] [place] Carbon dioxide, total [Moles /volume] in Serum or PlasmaOrdered By: Sabrina Manriquez on 03-01-2025 CO2 [Moles/Vol] 30.1 mmol/L Normal 21.0-31.0 [facility] Comment on above: Performed By: #### C 4, CH50, C3 #### [facility] , #### CBC, ADDONUAPLUS, ESR, CMP, CRP #### [place] [address] [place] Chloride [Moles/volume] in S lenny or PlasmaOrdered By: Sabrina Manriquez on 03-01-2025 Chloride [Moles/Vol] 103 mmol/L Normal 98-107 [facility] Comment on above: Performed By: #### C 4, CH50, C3 #### [facility] , #### CBC, ADDONUAPLUS, ESR, CMP, CRP #### [address] Color of Urine by AutoOrdere d By: Sabrina Manriquez on 03-01-2025 Color (U) Yellow Normal Yellow [facility] Comment on above: Order Comment: Name Collection Type:: Clean-Voided Midstream Performed By: #### C 4, CH50, C3 #### [facility] , #### CBC, ADDONUAPLUS, ESR, CMP, CRP #### [facility] [address] [place] [address] Complement C3on 03-01-2025 Complement C3 160 mg/dL Normal 82-167 [facility] Comment on above: Result Comment: Perf ormed at: - [facility] [address] [id number] Office Manager Receptionist: Derek Toscano PhD, Phone: [phone] Performed By: #### C 4, CH50, C3 #### [facility] , #### CBC, CRP, ESR, CMP, ADDONUAPLUS #### [facility] [address] [place] [address] Complement C4on 03-01-2025 Complement C4 30 mg/dL Normal 12-38 [facility] Comment on above: Result Comment: PERF ORMED BY: [place] [address] PATHOLOGIST MOTOR VEHICLE EMISSIONS INSPECTOR ALBANIA WAGNER M.D. Performed By: #### C 4, CH50, C3 #### [facility] , #### CBC, CRP, ESR, CMP, ADDONUAPLUS #### [address] Complement Total (CH50)on Complement Total (CH50) 52 Normal >41 The Replaced By [facility] Comment on above: Result Comment: [...] determine out of range values. Performed at: [facility] [address] [id number] Office Manager Receptionist: Derek Toscano PhD, Phone: [phone] PERFORMED BY: [place] [address] PATHOLOGIST MOTOR VEHICLE EMISSIONS INSPECTOR ALBANIA WAGNER M.D. Performed By: #### C 4, CH50, C3 #### [facility] , #### CBC, CRP, ESR, CMP, ADDONUAPLUS #### [address] Complete Blood Count Auto Di ffon 03-01-2025 Mean Corpuscular HGB Conc 33.7 g/dL Normal 32.5-35.6 The Replaced By [facility] Comment on above: Performed By: #### C 4, CH50, C3 #### [facility] , #### CBC, CRP, ESR, CMP, ADDONUAPLUS #### [address] NRBC% 0.0 /100{WBC} Normal 0-0.5 [facility] Comment on above: Performed By: #### C 4, CH50, C3 #### [facility] , #### CBC, CRP, ESR, CMP, ADDONUAPLUS #### [address] White Blood Count 6.7 [CFU]/mL Normal 4.1-10.5 [facility] Comment on above: Performed By: #### C 4, CH50, C3 #### [facility] , #### CBC, CRP, ESR, CMP, ADDONUAPLUS #### [address] Comprehensive Metabolic Pane tanika 03-01-2025 Albumin [Mass/Vol] 4.1 g/dL Normal 3.5-5.7 [facility] Comment on above: Performed By: #### C 4, CH50, C3 #### [facility] , #### CBC, ADDONUAPLUS, ESR, CMP, CRP #### [address] GFR/1.73 sq M.predicted MDRD (S/P/Bld) [Vol rate/Area] mL/min/{1.73_m2} Normal The Replaced By [facility] Comment on above: Performed By: #### C 4, CH50, C3 #### [facility] , #### CBC, ADDONUAPLUS, ESR, CMP, CRP #### [address] Creatinine [Mass/volume] in Serum or PlasmaOrdered By: Sabrina Manriquez on 03-01-2025 Creatinine [Mass/Vol] 0.89 mg/dL Normal 0.70-1.30 [facility] Comment on above: Performed By: #### C 4, CH50, C3 #### [facility] , #### CBC, ADDONUAPLUS, ESR, CMP, CRP #### [address] Dipstick and Microscopicon 0 03-01-2025 Bacteria,Urine None Seen Normal None Seen [facility] Comment on above: Order Comment: Name Collection Type:: Clean-Voided Midstream Performed By: #### C 4, CH50, C3 #### [facility] , #### CBC, ADDONUAPLUS, ESR, CMP, CRP #### [address] Bilirubin,Urine Negative Normal Negative The [facility] Comment on above: Order Comment: Name Collection Type:: Clean-Voided Midstream Performed By: #### C 4, CH50, C3 #### [facility] , #### CBC, ADDONUAPLUS, ESR, CMP, CRP #### [address] Glucose Ql (U) Normal Normal Normal [facility] Comment on above: Order Comment: Name Collection Type:: Clean-Voided Midstream Performed By: #### C 4, CH50, C3 #### [facility] , #### CBC, ADDONUAPLUS, ESR, CMP, CRP #### [address] Hyaline Casts,Urine None Normal 0-8 [facility] Comment on above: Order Comment: Name Collection Type:: Clean-Voided Midstream Performed By: #### C 4, CH50, C3 #### [facility] , #### CBC, ADDONUAPLUS, ESR, CMP, CRP #### [address] Mucus,Urine 1+ [LPF] Critically abnormal The Replaced By [facility] Comment on above: Order Comment: Name Collection Type:: Clean-Voided Midstream Result Comment: PERF ORMED BY: [place] [address] PATHOLOGIST MOTOR VEHICLE EMISSIONS INSPECTOR [place]BANIA WAGNER M.D. Performed By: #### C 4, CH50, C3 #### [facility] , #### CBC, ADDONUAPLUS, ESR, CMP, CRP #### [address] Nitrite,Urine Negative Normal Negative The [facility] Comment on above: Order Comment: Name Collection Type:: Clean-Voided Midstream Performed By: #### C 4, CH50, C3 #### [facility] , #### CBC, ADDONUAPLUS, ESR, CMP, CRP #### [address] Occult Blood,Urine Negative Normal Negative The [facility] Comment on above: Order Comment: Name Collection Type:: Clean-Voided Midstream Performed By: #### C 4, CH50, C3 #### [facility] , #### CBC, ADDONUAPLUS, ESR, CMP, CRP #### [address] RBC,Urine 1-2 Normal 0-4 The [facility]placed By [facility] Comment on above: Order Comment: Name Collection Type:: Clean-Voided Midstream Performed By: #### C 4, CH50, C3 #### [facility] , #### CBC, ADDONUAPLUS, ESR, CMP, CRP #### [address] Specificy [place],Urine 1.021 Normal 1.001-1.03 0 The [facility]placed By [facility] Comment on above: Order Comment: Name Collection Type:: Clean-Voided Midstream Performed By: #### C 4, CH50, C3 #### [facility] , #### CBC, ADDONUAPLUS, ESR, CMP, CRP #### [address] Urobilinogen,Urine Normal Normal Normal The [facility] Comment on above: Order Comment: Name Collection Type:: Clean-Voided Midstream Performed By: #### C 4, CH50, C3 #### [facility] , #### CBC, ADDONUAPLUS, ESR, CMP, CRP #### [place] [address] [place] WBC,Urine 1-2 Normal 0-4 The [facility]placed [facility] Comment on above: Order Comment: Name Collection Type:: Clean-Voided Midstream Performed By: #### C 4, CH50, C3 #### [facility] , #### CBC, ADDONUAPLUS, ESR, CMP, CRP #### [address] Eosinophils [#/volume] in Bl ood by Automated countOrdered By: Sabrina Manriquez on 03-01-2025 Eosinophils (Bld) [#/Vol] 0.1 10*3/uL Normal 0.0-0.45 [facility] Comment on above: Performed By: #### C 4, CH50, C3 #### [facility] , #### CBC, CRP, ESR, CMP, ADDONUAPLUS #### [place] [address] [place] Eosinophils/100 leukocytes i n Blood by Automated countOrdered By: Sabrina Manriquez on 03-01-2025 Eosinophils/100 WBC (Bld) 0.7 % Normal . [facility] Comment on above: Performed By: #### C 4, CH50, C3 #### [facility] , #### CBC, CRP, ESR, CMP, ADDONUAPLUS #### [address] Epithelial cells.squamous [# /area] in Urine sediment by Automated countOrdered By: Sabrina Manriquez on 03-01-2025 Epithelial cells.squamous Auto (Urine sed) [#/Area] N/A [facility] Erythrocyte Sedimentation Ra natan 03-01-2025 ESR (Bld) [Velocity] 26 mm/h High 0-19 The Replaced By [facility] Comment on above: Result Comment: PERF ORMED BY: [place] [address] PATHOLOGIST MOTOR VEHICLE EMISSIONS INSPECTOR [place]BANIA WAGNER M.D. Performed By: #### C 4, CH50, C3 #### [facility] , #### CBC, CRP, ESR, CMP, ADDONUAPLUS #### [facility] [address] Erythrocyte distribution wid th [Ratio] by Automated countOrdered By: Sabrina Manriquez on 03-01-2025 Erythrocyte distribution width (RBC) [Ratio] 13.5 % Normal 12.0-14.8 [facility] Comment on above: Performed By: #### C 4, CH50, C3 #### [facility] , #### CBC, CRP, ESR, CMP, ADDONUAPLUS #### [address] Erythrocyte sedimentation ra te by Photometric methodOrdered By: Sabrina Manriquez on 03-01-2025 ESR Photometric method (Bld) [Velocity] 26 mm/hr High 0-19 [facility] Erythrocytes [#/area] in Uri ne sediment by Automated countOrdered By: Sabrina Manriquez on 03-01-2025 RBC Auto (Urine sed) [#/Area] 1-2 [HPF] 0-4 [facility] Erythrocytes [#/volume] in B lood by Automated countOrdered By: Sabrina Manriquez on 03-01-2025 RBC (Bld) [#/Vol] 4.15 10*6/uL Normal 3.90-5.60 [facility] Comment on above: Performed By: #### C 4, CH50, C3 #### [facility] , #### CBC, CRP, ESR, CMP, ADDONUAPLUS #### [address] Glomerular filtration rate [ Volume Rate/Area] in Serum, Plasma or Blood by CreatinineOrdered By: Sabrina Manriquez on 03-01-2025 Glomerular filtration rate [Volume Rate/Area] in Serum, Plasma or Blood by Creatinine > 60.0 mL/Min [facility] Glucose [Mass/volume] in Ser um or PlasmaOrdered By: Sabrina Manriquez on 03-01-2025 Glucose [Mass/Vol] 176 mg/dL High 70-100 [facility] Comment on above: ADA recommended refe rence rangeRandom Glucose Reference Range is dependent on time and content of last meal. Glucose of more than 200 mg/dL in a nonstressed, ambulatory subject supports the diagnosis of Diabetes Mellitus. Result Comment: [place] om Glucose Reference Range is dependent on time and content of last meal. Glucose of more than 200 mg/dL in a nonstressed, ambulatory subject supports the diagnosis of Diabetes Mellitus. ADA recommended reference range Performed By: #### C 4, CH50, C3 #### [facility] , #### CBC, ADDONUAPLUS, ESR, CMP, CRP #### [address] Glucose [Mass/volume] in Uri ne by Test stripOrdered By: Sabrina Manriquez on 03-01-2025 Glucose Test strip (U) [Mass/Vol] Normal mg/dL Normal [facility] Hematocrit [Volume Fraction] of Blood by Automated countOrdered By: Sabrina Manriquez on 03-01-2025 Hematocrit (Bld) [Volume fraction] 39.8 % Normal 38.8-50.0 [facility] Comment on above: Performed By: #### C 4, CH50, C3 #### [facility] , #### CBC, CRP, ESR, CMP, ADDONUAPLUS #### [address] Hemoglobin Test strip Ql (U) Ordered By: Sabrina Manriquez on 03-01-2025 Hemoglobin Ql (U) Negative Negative [facility] Hemoglobin [Mass/volume] in BloodOrdered By: Sabrina Ruizer on 03-01-2025 Hemoglobin (Bld) [Mass/Vol] 13.4 g/dL Normal 13.0-17.0 [facility] Comment on above: Performed By: #### C 4, CH50, C3 #### [facility] , #### CBC, CRP, ESR, CMP, ADDONUAPLUS #### [facility] [address] [place] [address] [place] Hyaline casts [#/area] in Ur ine sediment by Automated countOrdered By: Sabrina Manriquez on 03-01-2025 Hyaline casts Auto (Urine sed) [#/Area] None [LPF] 0-8 [facility] Ketones [Presence] in Urine by Test stripOrdered By: Sabrina Manriquez on 03-01-2025 Ketones Ql (U) Negative Normal Negative [facility] Comment on above: Order Comment: Name Collection Type:: Clean-Voided Midstream Performed By: #### C 4, CH50, C3 #### [facility] , #### CBC, ADDONUAPLUS, ESR, CMP, CRP #### [facility] [address] Leukocyte esterase [Presence ] in Urine by Test stripOrdered By: Sabrina Manriquez on 03-01-2025 Leukocyte esterase Test strip Ql (U) Negative Normal Negative [facility] Comment on above: Order Comment: Name Collection Type:: Clean-Voided Midstream Performed By: #### C 4, CH50, C3 #### [facility] , #### CBC, ADDONUAPLUS, ESR, CMP, CRP #### [facility] [address] [place] [address] [place] Leukocytes [#/area] in Urine sediment by Automated countOrdered By: Sabrina Manriquez on 03-01-2025 WBC Auto (Urine sed) [#/Area] 1-2 [HPF] 0-4 [facility] Leukocytes [#/volume] correc leah for nucleated erythrocytes in Blood by Automated counOrdered By: Sabrina Manriquez on 03-01-2025 WBC corrected for nucl RBC Auto (Bld) [#/Vol] 6.7 10*3/uL 4.1-10.5 [facility] Leukocytes [#/volume] in Blo od by Automated countOrdered By: Sabrina Manriquez on 03-01-2025 WBC (Bld) [#/Vol] 6.7 10*3/uL Normal 4.1-10.5 [facility] Comment on above: Performed By: #### C 4, CH50, C3 #### [facility] , #### CBC, CRP, ESR, CMP, ADDONUAPLUS #### [address] Lymphocytes [#/volume] in Bl ood by Automated countOrdered By: Sabrina Manriquez on 03-01-2025 Lymphocytes (Bld) [#/Vol] 1.0 10*3/uL Normal 1.00-4.8 [facility] Comment on above: Performed By: #### C 4, CH50, C3 #### [facility] , #### CBC, CRP, ESR, CMP, ADDONUAPLUS #### [address] Lymphocytes/100 leukocytes i n Blood by Automated countOrdered By: Sabrina Manriquez on 03-01-2025 Lymphocytes/100 WBC (Bld) 15.1 % Normal . [facility] Comment on above: Performed By: #### C 4, CH50, C3 #### [facility] , #### CBC, CRP, ESR, CMP, ADDONUAPLUS #### [address] MCH [Entitic mass] by Automa leah countOrdered By: Sabrina Manriquez on 03-01-2025 MCH (RBC) [Entitic mass] 32.3 pg Normal 27.5-35.2 [facility] Comment on above: Performed By: #### C 4, CH50, C3 #### [facility] , #### CBC, CRP, ESR, CMP, ADDONUAPLUS #### [address] MCHC Auto (RBC) [Mass/Vol]Or dered By: Sabrina Manriquez on 03-01-2025 MCHC (RBC) [Mass/Vol] 33.7 g/dL 32.5-35.6 [facility] MCV [Entitic volume] by Auto mated countOrdered By: Sabrina Manriquez on 03-01-2025 MCV (RBC) [Entitic vol] 95.9 fL Normal 83.5-101 [facility] Comment on above: Performed By: #### C 4, CH50, C3 #### [facility] , #### CBC, CRP, ESR, CMP, ADDONUAPLUS #### [address] Monocytes [#/volume] in Bloo d by Automated countOrdered By: Sabrina Manriquez on 03-01-2025 Monocytes (Bld) [#/Vol] 0.4 10*3/uL Normal 0.0-0.8 [facility] Comment on above: Performed By: #### C 4, CH50, C3 #### [facility] , #### CBC, CRP, ESR, CMP, ADDONUAPLUS #### [address] Monocytes/100 leukocytes in Blood by Automated countOrdered By: Sabrina Manriquez on 03-01-2025 Monocytes/100 WBC (Bld) 6.0 % Normal . [facility] Comment on above: Performed By: #### C 4, CH50, C3 #### [facility] , #### CBC, CRP, ESR, CMP, ADDONUAPLUS #### [address] Mucus [Presence] in Urine by AutomatedOrdered By: Sabrina Manriquez on 03-01-2025 Mucus Auto Ql (U) 1+ [LPF] Abnormal [facility] Neutrophils [#/volume] in Bl ood by Automated countOrdered By: Sabrina Manriquez on 03-01-2025 Neutrophils (Bld) [#/Vol] 5.2 10*3/uL Normal 1.8-7.7 [facility] Comment on above: Performed By: #### C 4, CH50, C3 #### [facility] , #### CBC, CRP, ESR, CMP, ADDONUAPLUS #### [facility] [address] [place] [address] [place] Neutrophils/100 leukocytes i n Blood by Automated countOrdered By: Sabrina Manriquez on 03-01-2025 Neutrophils/100 WBC (Bld) 77.5 % Normal . [facility] Comment on above: Performed By: #### C 4, CH50, C3 #### [facility] , #### CBC, CRP, ESR, CMP, ADDONUAPLUS #### [facility] [address] Nitrite Test strip Ql (U)Ord ered By: Sabrina Manriquez on 03-01-2025 Nitrite Ql (U) Negative Negative [facility] No Panel InformationOrdered By: Sabrina Manriquez on 03-01-2025 Pharmacy Creatinine Clearance (Chem N/A [facility] Nucleated erythrocytes [Pres ence] in Blood by Automated countOrdered By: Sabrina Manriquez on 03-01-2025 Nucleated RBC Auto Ql (Bld) 0.0 /100{WBC} 0-0.5 [facility] Platelet mean volume [Entiti c volume] in Blood by Automated countOrdered By: Sabrina Manriquez on 03-01-2025 Platelet mean volume (Bld) [Entitic vol] 8.3 fL Normal 6.6-10.1 [facility] Comment on above: Performed By: #### C 4, CH50, C3 #### [facility] , #### CBC, CRP, ESR, CMP, ADDONUAPLUS #### [facility] [address] [place] [address] Platelets [#/volume] in Bloo d by Automated countOrdered By: Sabrina Manriquez on 03-01-2025 Platelets (Bld) [#/Vol] 309 10*3/uL Normal 150-450 [facility] Comment on above: Performed By: #### C 4, CH50, C3 #### [facility] , #### CBC, CRP, ESR, CMP, ADDONUAPLUS #### [facility] [address] [place] [id number] [place] Potassium [Moles/volume] in Serum or PlasmaOrdered By: Sabrina Manriquez on 03-01-2025 Potassium [Moles/Vol] 4.2 mmol/L Normal 3.5-5.1 [facility] Comment on above: Performed By: #### C 4, CH50, C3 #### [facility] , #### CBC, ADDONUAPLUS, ESR, CMP, CRP #### [place] [address] [place] Protein [Mass/volume] in Ser um or PlasmaOrdered By: Sabrina Manriquez on 03-01-2025 Protein [Mass/Vol] 6.7 g/dL Normal 6.4-8.9 [facility] Comment on above: Performed By: #### C 4, CH50, C3 #### [facility] , #### CBC, ADDONUAPLUS, ESR, CMP, CRP #### [place] [id number] [place] Protein [Mass/volume] in Uri ne by Test stripOrdered By: Sabrina Manriquez on 03-01-2025 Protein (U) [Mass/Vol] 20 mg/dL Normal Negative [facility] Comment on above: Order Comment: Name Collection Type:: Clean-Voided Midstream Performed By: #### C 4, CH50, C3 #### [facility] , #### CBC, ADDONUAPLUS, ESR, CMP, CRP #### [address] Serum globulin measurement b y calculation (mass/volume)Ordered By: Sabrina Manriquez on 03-01-2025 Globulin (S) [Mass/Vol] 2.6 g/dL Normal [facility] Comment on above: Performed By: #### C 4, CH50, C3 #### [facility] , #### CBC, ADDONUAPLUS, ESR, CMP, CRP #### [address] Serum or plasma albumin/glob ulin mass ratioOrdered By: Sabrina Manriquez on 03-01-2025 Albumin/Globulin [Mass ratio] 1.6 {ratio} Normal [facility] Comment on above: Performed By: #### C 4, CH50, C3 #### [facility] , #### CBC, ADDONUAPLUS, ESR, CMP, CRP #### [address] Serum or plasma anion gap de terminationOrdered By: Sabrina Manriquez on 03-01-2025 Anion gap [Moles/Vol] 11.1 mmol/L Normal 6.0-15.0 [facility] Comment on above: Performed By: #### C 4, CH50, C3 #### [facility] , #### CBC, ADDONUAPLUS, ESR, CMP, CRP #### [address] Sodium [Moles/volume] in Ser um or PlasmaOrdered By: Sabrina Manriquez on 03-01-2025 Sodium [Moles/Vol] 140 mmol/L Normal 136-145 [facility] Comment on above: Performed By: #### C 4, CH50, C3 #### [facility] , #### CBC, ADDONUAPLUS, ESR, CMP, CRP #### [address] Specific gravity Test strip (U) [Rel density]Ordered By: Sabrina Manriquez on 03-01-2025 Specific gravity (U) [Rel density] 1.021 1.001-1.03 0 [facility] Urea nitrogen [Mass/volume] in Serum or PlasmaOrdered By: Sabrina Manriquez on 03-01-2025 Urea nitrogen [Mass/Vol] 15 mg/dL Normal 7-25 [facility] Comment on above: Performed By: #### C 4, CH50, C3 #### [facility] , #### CBC, ADDONUAPLUS, ESR, CMP, CRP #### [facility] [address] Urobilinogen Test strip (U) [Mass/Vol]Ordered By: Sabrina Manriquez on 03-01-2025 Urobilinogen (U) [Mass/Vol] Normal mg/dL Normal [facility] pH of Urine by Test stripOrd ered By: Sabrina Manriquez on 03-01-2025 pH (U) 5.5 [pH] Normal 5.0-9.0 [facility] Comment on above: Order Comment: Name Collection Type:: Clean-Voided Midstream Performed By: #### C 4, CH50, C3 #### [facility] , #### CBC, ADDONUAPLUS, ESR, CMP, CRP #### [facility] [address] MR Cervical spine WO contras ton 01-05-2025 [place] [address] Magnetic Resonance Report Signed Patient: JAY CARR MR#: [id number] : 1960 Acct:[id number] Age/Sex: 64 / M ADM Date: 01/04/25 Loc: MRI Attending Dr: Brennen Sam M.D. Ordering Physician: Brennen Sam M.D. Date of Service: 01/04/25 Procedure(s): MR cervical spine wo con Accession Number(s): [id number] cc: Brennen Sam M.D.; Dania Armstrong M.D. [place] [id number] Patient Name: JAY CARR MRN: [id number] date: 1960 Sex: M Assigned Patient Location: MRI Current Patient Location: Accession/Order Number: [id number] Exam Date: 01/05/2025 07:51 Report Date: 01/05/2025 07:58 At the request of: BRENNEN SAM MD Procedure: MR cervical spine wo con EXAMINATION: MRI OF THE CERVICAL SPINE WITHOUT CONTRAST CLINICAL DATA: Cervical Radiculopathy TECHNIQUE: Multiecho imaging was performed in the sagittal and axial plane without contrast administration. FINDINGS: The craniocervical junction is maintained. Minimal straightening. Evidence of prior ACDF C5-C7. Mild loss of height T1 noted chronic without abnormal edema. Otherwise the cervical vertebral heights, alignment and bone marrow signal is unremarkable. Cervical cord demonstrate normal signal and morphology. Prevertebral and paraspinal soft tissues are unremarkable. C2-C3: Minimal endplate spurring extending both foraminal zones. Mild facet arthropathy. Minimal foraminal narrowing. Canal is patent. C3-C4: Broad-based disc osteophyte complex. Uncovertebral spurring. Mild bilateral neural from narrowing. Mild central stenosis. C4-C5: Broad-based disc bulge with bilateral uncal vertebral spurring causing moderate right and jazg-my-itannboa left-sided neural foraminal narrowing. Canal patent. C5-6: Prior discectomy. Minimal diffuse ossific bridging noted and uncovertebral spurring, prominent left-sided. This causes minimal right-sided mild left-sided neural foraminal narrowing. Canal is patent. C6-7: Discectomy and fusion. Diffuse ossific bridging and uncovertebral spur formation identified causing mild central canal and mild bilateral neural foramina narrowing. C7-T1: Mild uncovertebral spurring and nahk-ws-nprmvgru facet arthropathy. This causes moderate bilateral neural from narrowing. Mild central canal stenosis. . MR/MR cervical spine wo con IMPRESSION: [id number]-[id number] DEGENERATIVE CHANGES WITH UP TO MILD CENTRAL CANAL NARROWING. JUNCTIONAL DEGENERATIVE CHANGES AND FORAMINAL ENCROACHMENT DUE TO UNCOVERTEBRAL SPURRING GREATEST RIGHT AT C4-C5 Impression dictated by: Wallace Brewster M.D. 01/05/2025 7:58 AM Dictation Location: [place] [address] Electronically authenticated by: [id number] Y Date: 01/05/2025 07:58 Dictated By: Wallace Brewster M.D. Signed By: 01/05/25 0801 DD/ 0758 TD/TT: Rn Medical Surgical: [facility] Radiology, Radiologi MD chetan - 01/05/2025 [place] [address] Magnetic Resonance Report Signed Patient: JAY CARR MR#: [id number] : 1960 Acct:[id number] Age/Sex: 64 / M ADM Date: 01/04/25 Loc: MRI Attending Dr: Brennen Sam M.D. Ordering Physician: Brennen Sam M.D. Date of Service: 01/04/25 Procedure(s): MR cervical spine wo con Accession Number(s): [id number] cc: Brennen Sam M.D.; Dania Armstrong M.D. [address] [address] Patient Name: JAY CARR MRN: [id number] date: 1960 Sex: M Assigned Patient Location: MRI Current Patient Location: Accession/Order Number: [id number] Exam Date: 01/05/2025 07:51 Report Date: 01/05/2025 07:58 At the request of: BRENNEN SAM MD Procedure: MR cervical spine wo con EXAMINATION: MRI OF THE CERVICAL SPINE WITHOUT CONTRAST CLINICAL DATA: Cervical Radiculopathy TECHNIQUE: Multiecho imaging was performed in the sagittal and axial plane without contrast administration. FINDINGS: The craniocervical junction is maintained. Minimal straightening. Evidence of prior ACDF C5-C7. Mild loss of height T1 noted chronic without abnormal edema. Otherwise the cervical vertebral heights, alignment and bone marrow signal is unremarkable. Cervical cord demonstrate normal signal and morphology. Prevertebral and paraspinal soft tissues are unremarkable. C2-C3: Minimal endplate spurring extending both foraminal zones. Mild facet arthropathy. Minimal foraminal narrowing. Canal is patent. C3-C4: Broad-based disc osteophyte complex. Uncovertebral spurring. Mild bilateral neural from narrowing. Mild central stenosis. C4-C5: Broad-based disc bulge with bilateral uncal vertebral spurring causing moderate right and qbvz-jm-jmdmxyas left-sided neural foraminal narrowing. Canal patent. C5-6: Prior discectomy. Minimal diffuse ossific bridging noted and uncovertebral spurring, prominent left-sided. This causes minimal right-sided mild left-sided neural foraminal narrowing. Canal is patent. C6-7: Discectomy and fusion. Diffuse ossific bridging and uncovertebral spur formation identified causing mild central canal and mild bilateral neural foramina narrowing. C7-T1: Mild uncovertebral spurring and lpag-nn-kofhjwix facet arthropathy. This causes moderate bilateral neural from narrowing. Mild central canal stenosis. . MR/MR cervical spine wo con IMPRESSION: [id number] DEGENERATIVE CHANGES WITH UP TO MILD CENTRAL CANAL NARROWING. JUNCTIONAL DEGENERATIVE CHANGES AND FORAMINAL ENCROACHMENT DUE TO UNCOVERTEBRAL SPURRING GREATEST RIGHT AT C4-C5 Impression dictated by: Wallace Brewster M.D. 01/05/2025 7:58 AM Dictation Location: [place] [address] Electronically authenticated by: [id number] Y Date: 01/05/2025 07:58 Dictated By: Wallace Brewster M.D. Signed By: 01/05/25 0801 DD/ 0758 TD/TT: Rn Medical Surgical: [facility] Radiology Study observation (narrative) [facility] MR Cervical spine WO contras tOrdered By: Radiologist Radiology on 01-05-2025 [facility] [employer] Work Phone: Alanine aminotransferase [En zymatic activity/volume] in Serum or PlasmaOrdered By: Sabrina Manriquez on 10-13-2024 ALT [Catalytic activity/Vol] Alanine aminotransferase [Enzymatic activity/volume] in Serum or Plasma [facility] Albumin [Mass/volume] in Ser um or Plasma by Bromocresol green (BCG) dye binding methoOrdered By: Sabrina Manriquez on 10-13-2024 Albumin BCG dye [Mass/Vol] Albumin [Mass/volume] in Serum or Plasma by Bromocresol green (BCG) dye binding metho 3.5-5.7 [facility] Alkaline phosphatase [Enzyma tic activity/volume] in Serum or PlasmaOrdered By: Sabrina Manriquez on 10-13-2024 ALP [Catalytic activity/Vol] Alkaline phosphatase [Enzymatic activity/volume] in Serum or Plasma 34-104 [facility] Appearance of UrineOrdered B y: Sabrina Manriquez on 10-13-2024 Appearance (U) Urine appearance Clear [facility] Aspartate aminotransferase [ Enzymatic activity/volume] in Serum or PlasmaOrdered By: Sabrina Manriquez on 10-13-2024 AST [Catalytic activity/Vol] Aspartate aminotransferase [Enzymatic activity/volume] in Serum or Plasma 13-39 [facility] Bacteria [Presence] in Urine by AutomatedOrdered By: Sabrina Manriquez on 10-13-2024 Bacteria Auto Ql (U) Bacteria [Presence] in Urine by Automated None Seen [facility] Basophils Auto (Bld) [#/Vol] Ordered By: Sabrina Manriquez on 10-13-2024 Basophils (Bld) [#/Vol] Automated basophil count 0.0-0.2 [facility] Basophils/100 WBC Auto (Bld) Ordered By: Sabrina Manriquez on 10-13-2024 Basophils/100 WBC (Bld) Automated basophil % . [facility] Bilirubin Test strip Ql (U)O rdered By: Sabrina Manriquez on 10-13-2024 Bilirubin Ql (U) Bilirubin.total [Presence] in Urine by Test strip Negative [facility] Bilirubin.total [Mass/volume ] in Serum or PlasmaOrdered By: Sabrina Manriquez on 10-13-2024 Bilirubin [Mass/Vol] Bilirubin.total [Mass/volume] in Serum or Plasma 0.3-1.0 [facility] C reactive protein [Mass/vol ume] in Serum or PlasmaOrdered By: Sabrina Manriquez on 10-13-2024 CRP [Mass/Vol] C reactive protein [Mass/volume] in Serum or Plasma 0.0-0.5 [facility] C-Reactive Proteinon 025 CRP [Mass/Vol] mg/L Normal 0.0-0.5 [facility] Comment on above: Result Comment: PERF ORMED BY: [place] [address] PATHOLOGIST MOTOR VEHICLE EMISSIONS INSPECTOR CHRIST FARAH M.D. Performed By: #### C 4, CH50, C3 #### [facility] , #### CBC, CRP, ESR, CMP, ADDONUAPLUS #### [address] Calcium [Mass/volume] in Ser um or PlasmaOrdered By: Sabrina Manriquez on 10-13-2024 Calcium [Mass/Vol] Calcium [Mass/volume ] in Serum or Plasma 8.6-10.3 [facility] Carbon dioxide, total [Moles /volume] in Serum or PlasmaOrdered By: Sabrina Manriquez on 10-13-2024 CO2 [Moles/Vol] Carbon dioxide, tota l [Moles/volume] in Serum or Plasma 21.0-31.0 [facility] Chloride [Moles/volume] in S lenny or PlasmaOrdered By: Sabrina Manriquez on 10-13-2024 Chloride [Moles/Vol] Chloride [Moles/vol ume] in Serum or Plasma 98-107 [facility] Color Auto (U)Ordered By: Emily Montiel on 10-13-2024 Color (U) Color of Urine by Auto Yellow Fi [facility] Complement C3on 10-13-2024 Complement C3 126 mg/dL Normal 82-167 [facility] Comment on above: Result Comment: Perf ormed at: [facility] [place] [id number] Office Manager Receptionist: Derek Toscano PhD, Phone: [phone] Performed By: #### C 4, CH50, C3 #### [facility] , #### CBC, CRP, ESR, CMP, ADDONUAPLUS #### [address] Complement C4on 10-13-2024 Complement C4 23 mg/dL Normal 12-38 [facility] Comment on above: Result Comment: Perf ormed at: [facility] [address] [id number] Office Manager Receptionist: Derek Toscano PhD, Phone: [phone] PERFORMED BY: [place] [address] PATHOLOGIST MOTOR VEHICLE EMISSIONS INSPECTOR CHRIST FARAH M.D. Performed By: #### C 4, CH50, C3 #### [facility] , #### CBC, CRP, ESR, CMP, ADDONUAPLUS #### [address] Complement Total (CH50)on Complement Total (CH50) 50 Normal >41 The Replaced By [facility] Comment on above: Result Comment: [...] of range values. Performed at: - [facility] [address] [id number] Office Manager Receptionist: Derek Toscano PhD, Phone: [phone] PERFORMED BY: [place] [address] PATHOLOGIST MOTOR VEHICLE EMISSIONS INSPECTOR CHRIST FARAH M.D. Performed By: #### C 4, CH50, C3 #### [facility] , #### CBC, CRP, ESR, CMP, ADDONUAPLUS #### [address] Complete Blood Count Auto Di ffon 10-13-2024 Basophils (Bld) [#/Vol] 0.0 10*3/uL Normal 0.0-0.2 The Replaced By [facility] Comment on above: Performed By: #### C 4, CH50, C3 #### [facility] , #### CBC, CRP, ESR, CMP, ADDONUAPLUS #### [address] Basophils/100 WBC (Bld) 0.6 % Normal . The Replaced By [facility] Comment on above: Performed By: #### C 4, CH50, C3 #### [facility] , #### CBC, CRP, ESR, CMP, ADDONUAPLUS #### [place] [id number] [place] Eosinophils (Bld) [#/Vol] 0.1 10*3/uL Normal 0.0-0.45 The Replaced By [facility] Comment on above: Performed By: #### C 4, CH50, C3 #### [facility] , #### CBC, CRP, ESR, CMP, ADDONUAPLUS #### [address] Eosinophils/100 WBC (Bld) 1.2 % Normal . The Replaced By [facility] Comment on above: Performed By: #### C 4, CH50, C3 #### [facility] , #### CBC, CRP, ESR, CMP, ADDONUAPLUS #### [address] Erythrocyte distribution width (RBC) [Ratio] 13.8 % Normal 12.0-14.8 The Replaced By [facility] Comment on above: Performed By: #### C 4, CH50, C3 #### [facility] , #### CBC, CRP, ESR, CMP, ADDONUAPLUS #### [address] Hematocrit (Bld) [Volume fraction] 42.9 % Normal 38.8-50.0 The Replaced By [facility] Comment on above: Performed By: #### C 4, CH50, C3 #### [facility] , #### CBC, CRP, ESR, CMP, ADDONUAPLUS #### [address] Hemoglobin (Bld) [Mass/Vol] 14.8 g/dL Normal 13.0-17.0 The Replaced By [facility] Comment on above: Performed By: #### C 4, CH50, C3 #### [facility] , #### CBC, CRP, ESR, CMP, ADDONUAPLUS #### [address] Lymphocytes (Bld) [#/Vol] 1.1 10*3/uL Normal 1.00-4.8 The Replaced By [facility] Comment on above: Performed By: #### C 4, CH50, C3 #### [facility] , #### CBC, CRP, ESR, CMP, ADDONUAPLUS #### [address] Lymphocytes/100 WBC (Bld) 15.9 % Normal . The Replaced By [facility] Comment on above: Performed By: #### C 4, CH50, C3 #### [facility] , #### CBC, CRP, ESR, CMP, ADDONUAPLUS #### [address] MCH (RBC) [Entitic mass] 32.4 pg Normal 27.5-35.2 The Replaced By [facility] Comment on above: Performed By: #### C 4, CH50, C3 #### [facility] , #### CBC, CRP, ESR, CMP, ADDONUAPLUS #### [address] MCV (RBC) [Entitic vol] 94.2 fL Normal 83.5-101 The Replaced By [facility] Comment on above: Performed By: #### C 4, CH50, C3 #### [facility] , #### CBC, CRP, ESR, CMP, ADDONUAPLUS #### [address] Mean Corpuscular HGB Conc 34.4 g/dL Normal 32.5-35.6 The Replaced By [facility] Comment on above: Performed By: #### C 4, CH50, C3 #### [facility] , #### CBC, CRP, ESR, CMP, ADDONUAPLUS #### [address] Monocytes (Bld) [#/Vol] 0.5 10*3/uL Normal 0.0-0.8 The Replaced By [facility] Comment on above: Performed By: #### C 4, CH50, C3 #### [facility] , #### CBC, CRP, ESR, CMP, ADDONUAPLUS #### [address] Monocytes/100 WBC (Bld) 7.4 % Normal . The Replaced By [facility] Comment on above: Performed By: #### C 4, CH50, C3 #### [facility] , #### CBC, CRP, ESR, CMP, ADDONUAPLUS #### [address] Neutrophils (Bld) [#/Vol] 5.1 10*3/uL Normal 1.8-7.7 The Replaced By [facility] Comment on above: Performed By: #### C 4, CH50, C3 #### [facility] , #### CBC, CRP, ESR, CMP, ADDONUAPLUS #### [address] Neutrophils/100 WBC (Bld) 74.9 % Normal . The Replaced By [facility] Comment on above: Performed By: #### C 4, CH50, C3 #### [facility] , #### CBC, CRP, ESR, CMP, ADDONUAPLUS #### [address] NRBC% 0.1 /100{WBC} Normal 0-0.5 [facility] Comment on above: Performed By: #### C 4, CH50, C3 #### [facility] , #### CBC, CRP, ESR, CMP, ADDONUAPLUS #### [address] Platelet mean volume (Bld) [Entitic vol] 9.2 fL Normal 6.6-10.[address] [facility] Comment on above: Performed By: #### C 4, CH50, C3 #### [facility] , #### CBC, CRP, ESR, CMP, ADDONUAPLUS #### [address] Platelets (Bld) [#/Vol] 232 10*3/uL Normal 150-450 The Replaced By [facility] Comment on above: Performed By: #### C 4, CH50, C3 #### [facility] , #### CBC, CRP, ESR, CMP, ADDONUAPLUS #### [address] RBC (Bld) [#/Vol] 4.56 10*6/uL Normal 3.90-5.60 The [facility] Comment on above: Performed By: #### C 4, CH50, C3 #### [facility] , #### CBC, CRP, ESR, CMP, ADDONUAPLUS #### [address] WBC (Bld) [#/Vol] 6.8 10*3/uL Normal 4.1-10.5 The [facility] Comment on above: Performed By: #### C 4, CH50, C3 #### [facility] , #### CBC, CRP, ESR, CMP, ADDONUAPLUS #### [address] Comprehensive Metabolic Pane tanika 10-13-2024 Albumin [Mass/Vol] 4.4 g/dL Normal 3.5-5.7 [facility] Comment on above: Performed By: #### C 4, CH50, C3 #### [facility] , #### CBC, CRP, ESR, CMP, ADDONUAPLUS #### [address] Albumin/Globulin [Mass ratio] 1.7 {ratio} Normal The Replaced By [facility] Comment on above: Performed By: #### C 4, CH50, C3 #### [facility] , #### CBC, CRP, ESR, CMP, ADDONUAPLUS #### [address] ALP [Catalytic activity/Vol] 92 U/L Normal 34-104 The Replaced By [facility] Comment on above: Performed By: #### C 4, CH50, C3 #### [facility] , #### CBC, CRP, ESR, CMP, ADDONUAPLUS #### [address] ALT [Catalytic activity/Vol] 29 U/L Normal 7-52 The Replaced By [facility] Comment on above: Performed By: #### C 4, CH50, C3 #### [facility] , #### CBC, CRP, ESR, CMP, ADDONUAPLUS #### [address] Anion gap [Moles/Vol] 11.0 mmol/L Normal 6.0-15.0 Th e Replaced By [facility] Comment on above: Performed By: #### C 4, CH50, C3 #### [facility] , #### CBC, CRP, ESR, CMP, ADDONUAPLUS #### [address] AST [Catalytic activity/Vol] 30 U/L Normal 13-39 The Replaced By [facility] Comment on above: Performed By: #### C 4, CH50, C3 #### [facility] , #### CBC, CRP, ESR, CMP, ADDONUAPLUS #### [address] Bilirubin [Mass/Vol] 0.7 mg/dL Normal 0.3-1.0 The Replaced By [facility] Comment on above: Performed By: #### C 4, CH50, C3 #### [facility] , #### CBC, CRP, ESR, CMP, ADDONUAPLUS #### [address] Calcium [Mass/Vol] 9.4 mg/dL Normal 8.6-10.3 [facility] Comment on above: Performed By: #### C 4, CH50, C3 #### [facility] , #### CBC, CRP, ESR, CMP, ADDONUAPLUS #### [address] Chloride [Moles/Vol] 105 mmol/L Normal 98-107 The Replaced By [facility] Comment on above: Performed By: #### C 4, CH50, C3 #### [facility] , #### CBC, CRP, ESR, CMP, ADDONUAPLUS #### [address] CO2 [Moles/Vol] 27.9 mmol/L Normal 21.0-31.0 The [facility] Comment on above: Performed By: #### C 4, CH50, C3 #### [facility] , #### CBC, CRP, ESR, CMP, ADDONUAPLUS #### [address] Creatinine [Mass/Vol] 0.94 mg/dL Normal 0.70-1.30 The Replaced By [facility] Comment on above: Performed By: #### C 4, CH50, C3 #### [facility] , #### CBC, CRP, ESR, CMP, ADDONUAPLUS #### [address] GFR/1.73 sq M.predicted MDRD (S/P/Bld) [Vol rate/Area] mL/min/{1.73_m2} Normal The Replaced By [facility] Comment on above: Performed By: #### C 4, CH50, C3 #### [facility] , #### CBC, CRP, ESR, CMP, ADDONUAPLUS #### [address] Globulin (S) [Mass/Vol] 2.6 g/dL Normal The Replaced By [facility] Comment on above: Performed By: #### C 4, CH50, C3 #### [facility] , #### CBC, CRP, ESR, CMP, ADDONUAPLUS #### [address] Glucose [Mass/Vol] 88 mg/dL Normal 70-100 [facility] Comment on above: Result Comment: [facility] [place] Glucose Reference Range is dependent on time and content of last meal. Glucose of more than 200 mg/dL in a nonstressed, ambulatory subject supports the diagnosis of Diabetes Mellitus. ADA recommended reference range Performed By: #### C 4, CH50, C3 #### [facility] , #### CBC, CRP, ESR, CMP, ADDONUAPLUS #### [address] Potassium [Moles/Vol] 3.9 mmol/L Normal 3.5-5.1 The Replaced By [facility] Comment on above: Performed By: #### C 4, CH50, C3 #### [facility] , #### CBC, CRP, ESR, CMP, ADDONUAPLUS #### [address] Protein [Mass/Vol] 7.0 g/dL Normal 6.4-8.9 [facility] Comment on above: Performed By: #### C 4, CH50, C3 #### [facility] , #### CBC, CRP, ESR, CMP, ADDONUAPLUS #### [place] [address] [place] Sodium [Moles/Vol] 140 mmol/L Normal 136-145 [facility] Comment on above: Performed By: #### C 4, CH50, C3 #### [facility] , #### CBC, CRP, ESR, CMP, ADDONUAPLUS #### [address] Urea nitrogen [Mass/Vol] 18 mg/dL Normal 7-25 The Replaced By [facility] Comment on above: Performed By: #### C 4, CH50, C3 #### [facility] , #### CBC, CRP, ESR, CMP, ADDONUAPLUS #### [place] [address] [place] Creatinine [Mass/volume] in Serum or PlasmaOrdered By: Sabrina Manriquez on 10-13-2024 Creatinine [Mass/Vol] Creatinine [Mass/v olume] in Serum or Plasma 0.70-1.30 [facility] Dipstick and Microscopicon 0 10-13-2024 Appearance (U) Clear Normal Clear [facility] Comment on above: Order Comment: Name Collection Type:: Clean-Voided Midstream Performed By: #### C 4, CH50, C3 #### [facility] , #### CBC, CRP, ESR, CMP, ADDONUAPLUS #### [address] Bacteria,Urine None Seen Normal None Seen [facility] Comment on above: Order Comment: Name Collection Type:: Clean-Voided Midstream Performed By: #### C 4, CH50, C3 #### [facility] , #### CBC, CRP, ESR, CMP, ADDONUAPLUS #### [place] [address] [place] Bilirubin,Urine Negative Normal Negative The [facility] Comment on above: Order Comment: Name Collection Type:: Clean-Voided Midstream Performed By: #### C 4, CH50, C3 #### [facility] , #### CBC, CRP, ESR, CMP, ADDONUAPLUS #### [place] [address] [place] Color (U) Yellow Normal Yellow The Replaced By [facility] Comment on above: Order Comment: Name Collection Type:: Clean-Voided Midstream Performed By: #### C 4, CH50, C3 #### [facility] , #### CBC, CRP, ESR, CMP, ADDONUAPLUS #### [place] [address] Glucose Ql (U) Normal Normal Normal [facility] Comment on above: Order Comment: Name Collection Type:: Clean-Voided Midstream Performed By: #### C 4, CH50, C3 #### [facility] , #### CBC, CRP, ESR, CMP, ADDONUAPLUS #### [address] Hyaline Casts,Urine None Normal 0-8 [facility] Comment on above: Order Comment: Name Collection Type:: Clean-Voided Midstream Performed By: #### C 4, CH50, C3 #### [facility] , #### CBC, CRP, ESR, CMP, ADDONUAPLUS #### [address] Ketones Ql (U) Negative Normal Negative [facility] Comment on above: Order Comment: Name Collection Type:: Clean-Voided Midstream Performed By: #### C 4, CH50, C3 #### [facility] , #### CBC, CRP, ESR, CMP, ADDONUAPLUS #### [address] Leukocyte esterase Test strip Ql (U) Negative Normal Negative The Replaced By [facility] Comment on above: Order Comment: Name Collection Type:: Clean-Voided Midstream Performed By: #### C 4, CH50, C3 #### [facility] , #### CBC, CRP, ESR, CMP, ADDONUAPLUS #### [address] Mucus,Urine 1+ Critically abnormal The Replaced By [facility] Comment on above: Order Comment: Name Collection Type:: Clean-Voided Midstream Result Comment: PERF ORMED BY: [place] [address] PATHOLOGIST MOTOR VEHICLE EMISSIONS INSPECTOR CHRIST FARAH M.D. Performed By: #### C 4, CH50, C3 #### [facility] , #### CBC, CRP, ESR, CMP, ADDONUAPLUS #### [address] Nitrite,Urine Negative Normal Negative [facility] Comment on above: Order Comment: Name Collection Type:: Clean-Voided Midstream Performed By: #### C 4, CH50, C3 #### [facility] , #### CBC, CRP, ESR, CMP, ADDONUAPLUS #### [address] Occult Blood,Urine Negative Normal Negative [facility] Comment on above: Order Comment: Name Collection Type:: Clean-Voided Midstream Performed By: #### C 4, CH50, C3 #### [facility] , #### CBC, CRP, ESR, CMP, ADDONUAPLUS #### [address] pH (U) 5.5 [pH] Normal 5.0-9.0 The Replaced By [facility] Comment on above: Order Comment: Name Collection Type:: Clean-Voided Midstream Performed By: #### C 4, CH50, C3 #### [facility] , #### CBC, CRP, ESR, CMP, ADDONUAPLUS #### [address] Protein (U) [Mass/Vol] 20 mg/dL High Negative [facility] Comment on above: Order Comment: Name Collection Type:: Clean-Voided Midstream Performed By: #### C 4, CH50, C3 #### [facility] , #### CBC, CRP, ESR, CMP, ADDONUAPLUS #### [address] RBC,Urine 1-2 Normal 0-4 The Replaced By [facility] Comment on above: Order Comment: Name Collection Type:: Clean-Voided Midstream Performed By: #### C 4, CH50, C3 #### [facility] , #### CBC, CRP, ESR, CMP, ADDONUAPLUS #### [address] Specificy [place],Urine 1.024 Normal 1.001-1.03 0 The Replaced By [facility] Comment on above: Order Comment: Name Collection Type:: Clean-Voided Midstream Performed By: #### C 4, CH50, C3 #### [facility] , #### CBC, CRP, ESR, CMP, ADDONUAPLUS #### [address] Squamous Epithelial Cell,Urine 1-2 Normal 0-2 The [facility]placed By [facility] Comment on above: Order Comment: Name Collection Type:: Clean-Voided Midstream Performed By: #### C 4, CH50, C3 #### [facility] , #### CBC, CRP, ESR, CMP, ADDONUAPLUS #### [address] Urobilinogen,Urine Normal Normal Normal [facility] Comment on above: Order Comment: Name Collection Type:: Clean-Voided Midstream Performed By: #### C 4, CH50, C3 #### [facility] , #### CBC, CRP, ESR, CMP, ADDONUAPLUS #### [address] WBC,Urine 1-2 Normal 0-4 The Replaced By [facility] Comment on above: Order Comment: Name Collection Type:: Clean-Voided Midstream Performed By: #### C 4, CH50, C3 #### [facility] , #### CBC, CRP, ESR, CMP, ADDONUAPLUS #### [address] Eosinophils Auto (Bld) [#/Vo l]Ordered By: aSbrina Manriquez on 10-13-2024 Eosinophils (Bld) [#/Vol] Automated eosinophil count 0.0-0.45 [facility] Eosinophils/100 WBC Auto (Bl d)Ordered By: Sabrina Manriquez on 10-13-2024 Eosinophils/100 WBC (Bld) Automated eosinophil % . [facility] Epithelial cells.squamous [# /area] in Urine sediment by Automated countOrdered By: Sabrina Manriquez on 10-13-2024 Epithelial cells.squamous Auto (Urine sed) [#/Area] Epithelial cells.squamous [#/area] in Urine sediment by Automated count 0-2 [facility] Erythrocyte Sedimentation Ra natan 10-13-2024 ESR (Bld) [Velocity] 7 mm/h Normal 0-19 The Replaced By [facility] Comment on above: Result Comment: PERF ORMED BY: [place] [address] PATHOLOGIST MOTOR VEHICLE EMISSIONS INSPECTOR CHRIST FARAH M.D. Performed By: #### C 4, CH50, C3 #### [facility] , #### CBC, CRP, ESR, CMP, ADDONUAPLUS #### [address] Erythrocyte distribution wid th Auto (RBC) [Ratio]Ordered By: Sabrina Manriquez on 10-13-2024 Erythrocyte distribution width (RBC) [Ratio] Erythrocyte distribution width [Ratio] by Automated count 12.0-14.8 [facility] Erythrocyte sedimentation ra te by Photometric methodOrdered By: Sabrina Manriquez on 10-13-2024 ESR Photometric method (Bld) [Velocity] Erythrocyte sedimentation rate by Photometric method 0-19 [facility] Erythrocytes [#/area] in Uri ne sediment by Automated countOrdered By: Sabrina Manriquez on 10-13-2024 RBC Auto (Urine sed) [#/Area] Erythrocytes [#/area] in Urine sediment by Automated count 0-4 [facility] Globulin Calc (S) [Mass/Vol] Ordered By: Sabrina Manriquez on 10-13-2024 Globulin (S) [Mass/Vol] Serum globulin measurement by calculation (mass/volume) [facility] Glucose [Mass/volume] in Ser um or PlasmaOrdered By: Sabrina Manriquez on 10-13-2024 Glucose [Mass/Vol] Glucose [Mass/volume ] in Serum or Plasma 70-100 [facility] Comment on above: ADA recommended refe [...] [Mass/volume] in Urine by Test strip Normal [facility] Hematocrit Auto (Bld) [Volum e fraction]Ordered By: Sabrina Manriquez on 10-13-2024 Hematocrit (Bld) [Volume fraction] Hematocrit [Volume Fraction] of Blood by Automated count 38.8-50.0 [facility] Hemoglobin Test strip Ql (U) Ordered By: Sabrina Manriquez on 10-13-2024 Hemoglobin Ql (U) Hemoglobin [Presence ] in Urine by Test strip Negative [facility] Hemoglobin [Mass/volume] in BloodOrdered By: Sabrina Manriquez on 10-13-2024 Hemoglobin (Bld) [Mass/Vol] Hemoglobin [Mass/volume] in Blood 13.0-17.0 [facility] Hyaline casts [#/area] in Ur ine sediment by Automated countOrdered By: Sabrina Manriquez on 10-13-2024 Hyaline casts Auto (Urine sed) [#/Area] Hyaline casts [#/area] in Urine sediment by Automated count 0-8 [facility] Ketones Test strip Ql (U)Ord ered By: Sabrina Manriquez on 10-13-2024 Ketones Ql (U) Ketones [Presence] i n Urine by Test strip Negative [facility] Leukocyte esterase [Presence ] in Urine by Test stripOrdered By: Sabrina Manriquez on 10-13-2024 Leukocyte esterase Test strip Ql (U) Leukocyte esterase [Presence] in Urine by Test strip Negative [facility] Leukocytes [#/area] in Urine sediment by Automated countOrdered By: Sabrina Manriquez on 10-13-2024 WBC Auto (Urine sed) [#/Area] Leukocytes [#/area] in Urine sediment by Automated count 0-4 [facility] Leukocytes [#/volume] correc leah for nucleated erythrocytes in Blood by Automated counOrdered By: Sabrina Manriquez on 10-13-2024 WBC corrected for nucl RBC Auto (Bld) [#/Vol] Leukocytes [#/volume] corrected for nucleated erythrocytes in Blood by Automated coun 4.1-10.5 [facility] Lymphocytes Auto (Bld) [#/Vo l]Ordered By: Sabrina Manriquez on 10-13-2024 Lymphocytes (Bld) [#/Vol] Lymphocytes [#/volume] in Blood by Automated count 1.00-4.8 [facility] Lymphocytes/100 WBC Auto (Bl d)Ordered By: Sabrina Manriquez on 10-13-2024 Lymphocytes/100 WBC (Bld) Lymphocytes/100 leukocytes in Blood by Automated count . [facility] MCH Auto (RBC) [Entitic mass ]Ordered By: Sabrina Manriquez on 10-13-2024 MCH (RBC) [Entitic mass] MCH [Entitic mass] by Automated count 27.5-35.2 [facility] MCHC Auto (RBC) [Mass/Vol]Or dered By: Sabrina Manriquez on 10-13-2024 MCHC (RBC) [Mass/Vol] MCHC [Mass/volume] by Automated count 32.5-35.6 [facility] MCV Auto (RBC) [Entitic vol] Ordered By: Sabrina Manriquez on 10-13-2024 MCV (RBC) [Entitic vol] MCV [Entitic volume] by Automated count 83.5-101 [facility] Monocytes Auto (Bld) [#/Vol] Ordered By: Sabrina Manriquez on 10-13-2024 Monocytes (Bld) [#/Vol] Automated blood monocyte count 0.0-0.8 [facility] Monocytes/100 WBC Auto (Bld) Ordered By: Sabrina Manriquez on 10-13-2024 Monocytes/100 WBC (Bld) Automated monocyte % . [facility] Mucus [Presence] in Urine by AutomatedOrdered By: Sabrina Manriquez on 10-13-2024 Mucus Auto Ql (U) Mucus [Presence] in Urine by Automated Abnormal [facility] Neutrophils Auto (Bld) [#/Vo l]Ordered By: Sabrina Manriquez on 10-13-2024 Neutrophils (Bld) [#/Vol] Neutrophils [#/volume] in Blood by Automated count 1.8-7.7 [facility] Neutrophils/100 WBC Auto (Bl d)Ordered By: Sabrina Manriquez on 10-13-2024 Neutrophils/100 WBC (Bld) Automated neutrophil % . [facility] Nitrite Test strip Ql (U)Ord ered By: Sabrina Manriquez on 10-13-2024 Nitrite Ql (U) Nitrite [Presence] i n Urine by Test strip Negative [facility] No Panel InformationOrdered By: Sabrina Manriquez on 10-13-2024 Estimated GFR (CKD-EPI) > 60.0 mL/Min [facility] Creatinine Clearance (Chem N/A [facility] Nucleated erythrocytes [Pres ence] in Blood by Automated countOrdered By: Sabrina Manriquez on 10-13-2024 Nucleated RBC Auto Ql (Bld) Nucleated erythrocytes [Presence] in Blood by Automated count 0-0.5 [facility] Platelet mean volume Auto (B ld) [Entitic vol]Ordered By: Sabrina Manriquez on 10-13-2024 Platelet mean volume (Bld) [Entitic vol] Platelet mean volume [Entitic volume] in Blood by Automated count 6.6-10.1 [facility] Platelets Auto (Bld) [#/Vol] Ordered By: Sabrina Manriquez on 10-13-2024 Platelets (Bld) [#/Vol] Platelets [#/volume] in Blood by Automated count 150-450 [facility] Potassium [Moles/volume] in Serum or PlasmaOrdered By: Sabrina Manriquez on 10-13-2024 Potassium [Moles/Vol] Potassium [Moles/v olume] in Serum or Plasma 3.5-5.1 [facility] Protein Test strip (U) [Mass /Vol]Ordered By: Sabrina Manriquez on 10-13-2024 Protein (U) [Mass/Vol] Protein [Mass/vol ume] in Urine by Test strip High Negative [facility] Protein [Mass/volume] in Ser um or PlasmaOrdered By: Sabrina Manriquez on 10-13-2024 Protein [Mass/Vol] Protein [Mass/volume ] in Serum or Plasma 6.4-8.9 [facility] RBC Auto (Bld) [#/Vol]Ordere d By: Sabrina Manriquez on 10-13-2024 RBC (Bld) [#/Vol] Erythrocytes [#/volu me] in Blood by Automated count 3.90-5.60 [facility] Serum or plasma albumin/glob ulin mass ratioOrdered By: Sabrina Manriquez on 10-13-2024 Albumin/Globulin [Mass ratio] Serum or plasma albumin/globulin mass ratio [facility] Serum or plasma anion gap de terminationOrdered By: Sabrina Manriquez on 10-13-2024 Anion gap [Moles/Vol] Serum or plasma an ion gap determination 6.0-15.0 [facility] Sodium [Moles/volume] in Ser um or PlasmaOrdered By: Sabrina Manriquez on 10-13-2024 Sodium [Moles/Vol] Sodium [Moles/volume ] in Serum or Plasma 136-145 [facility] Specific gravity Test strip (U) [Rel density]Ordered By: Sabrina Manriquez on 10-13-2024 Specific gravity (U) [Rel density] Specific gravity of Urine by Test strip 1.001-1.03 0 [facility] Urea nitrogen [Mass/volume] in Serum or PlasmaOrdered By: Sabrina Manriquez on 10-13-2024 Urea nitrogen [Mass/Vol] Urea nitrogen [Mass/volume] in Serum or Plasma 7-25 [facility] Urobilinogen Test strip (U) [Mass/Vol]Ordered By: Sabrina Manriquez on 10-13-2024 Urobilinogen (U) [Mass/Vol] Urobilinogen [Mass/volume] in Urine by Test strip Normal [facility] WBC Auto (Bld) [#/Vol]Ordere d By: Sabrina Manriquez on 04-22-2025 WBC (Bld) [#/Vol] Leukocytes [#/volume ] in Blood by Automated count 4.1-10.5 [facility] pH Test strip (U)Ordered By: Sabrina Manriquez on 10-13-2024 pH (U) pH of Urine by Test strip 5.0-9.0 [facility] Ambulatory Visit Summaryon 1 Ambulatory Visit [...] Shun MACHADO MD Where: [facility] [address] [place] [address]- You Need to Schedule the Following Appointments Follow Up with CHRIS RIVERA, BREN Rodriguez When: Where: [address] [place] [address]- Medications What How Much When Instructions Unchanged [...] tips fo (more content not included)... Normal [facility] Urology Office/Clinic Noteon 04-13-2024 Urology Office/Clinic [...] Shun Mirza, URL [address] [place] [id number]- Additional Instructions: 2 yr with KUB and [...] with voice recognition artificial intelligence software, specifically [employer], OP[employer]TUNITY and or [employer]. Substitutions may have occurred due to the [...] Kidney stone (more content not included)... Normal [facility] Comment on above: Result Comment: Elec tronically Signed By: Shun MACHADO MD\.br\Date and Time Signed: 04/13/24 10:19 EDT\.br\Electronically Co-Signed By: Mary Alicea\.br\Date and Time Co-Signed: 04/13/24 10:15 EDT Alanine aminotransferase [En zymatic activity/volume] in Serum or PlasmaOrdered By: Sabrina Manriquez on 03-04-2024 ALT [Catalytic activity/Vol] 27 U/L 7-52 [facility] Albumin [Mass/volume] in Ser um or Plasma by Bromocresol green (BCG) dye binding methoOrdered By: Sabrina Manriquez on 03-04-2024 Albumin BCG dye [Mass/Vol] 4.4 g/dL 3.5-5.7 [facility] Alkaline phosphatase [Enzyma tic activity/volume] in Serum or PlasmaOrdered By: Sabrina Manriquez on 03-04-2024 ALP [Catalytic activity/Vol] 92 U/L 34-104 [facility] Aspartate aminotransferase [ Enzymatic activity/volume] in Serum or PlasmaOrdered By: Sabrina Manriquez on 03-04-2024 AST [Catalytic activity/Vol] 21 U/L 13-39 [facility] Bacteria [Presence] in Urine by AutomatedOrdered By: Sabrina Manriquez on 03-04-2024 Bacteria Auto Ql (U) None seen [HPF] None Seen [facility] Basophils Auto (Bld) [#/Vol] Ordered By: Sabrina Manriquez on 03-04-2024 Basophils (Bld) [#/Vol] 0.0 10*3/uL 0.0-0.2 [facility] Basophils/100 WBC Auto (Bld) Ordered By: Sabrina Manriquez on 03-04-2024 Basophils/100 WBC (Bld) 0.6 % . [facility] Bilirubin Test strip Ql (U)O rdered By: Sabrina Manriquez on 03-04-2024 Bilirubin Ql (U) Negative Negative [facility] Bilirubin.total [Mass/volume ] in Serum or PlasmaOrdered By: Sabrina Manriquez on 03-04-2024 Bilirubin [Mass/Vol] 0.6 mg/dL 0.3-1.0 [facility] C reactive protein [Mass/vol ume] in Serum or PlasmaOrdered By: Sabrina Manriquez on 03-04-2024 CRP [Mass/Vol] < 0.5 mg/dL 0.0-0.5 [facility] Calcium [Mass/volume] in Ser um or PlasmaOrdered By: Sabrina Manriquez on 03-04-2024 Calcium [Mass/Vol] 9.2 mg/dL 8.6-10.3 [facility] Carbon dioxide, total [Moles /volume] in Serum or PlasmaOrdered By: Sabrina Manriquez on 03-04-2024 CO2 [Moles/Vol] 29.4 mmol/L 21.0-31.0 [facility] Chloride [Moles/volume] in S lenny or PlasmaOrdered By: Sabrina Manriquez on 03-04-2024 Chloride [Moles/Vol] 104 mmol/L 98-107 [facility] Color Auto (U)Ordered By: Emily Montiel on 03-04-2024 Color (U) Light-yellow Yellow [facility] Creatinine [Mass/volume] in Serum or PlasmaOrdered By: Sabrina Manriquez on 03-04-2024 Creatinine [Mass/Vol] 0.93 mg/dL 0.70-1.30 [facility] Eosinophils Auto (Bld) [#/Vo l]Ordered By: Sabrina Manriquez on 03-04-2024 Eosinophils (Bld) [#/Vol] 0.1 10*3/uL 0.0-0.45 [facility] Eosinophils/100 WBC Auto (Bl d)Ordered By: Sabrina Manriquez on 03-04-2024 Eosinophils/100 WBC (Bld) 1.3 % . [facility] Epithelial cells.squamous [# /area] in Urine sediment by Automated countOrdered By: Sabrina Manriquez on 03-04-2024 Epithelial cells.squamous Auto (Urine sed) [#/Area] N/A [facility] Erythrocyte distribution wid th Auto (RBC) [Ratio]Ordered By: Sabrina Manriquez on 03-04-2024 Erythrocyte distribution width (RBC) [Ratio] 13.6 % 12.0-14.8 [facility] Erythrocyte sedimentation ra te by Photometric methodOrdered By: Sabrina Manriquez on 03-04-2024 ESR Photometric method (Bld) [Velocity] 9 mm/hr 0-19 [facility] Erythrocytes [#/area] in Uri ne sediment by Automated countOrdered By: Sabrina Manriquez on 03-04-2024 RBC Auto (Urine sed) [#/Area] 1-2 [HPF] 0-4 [facility] Globulin Calc (S) [Mass/Vol] Ordered By: Sabrina Manriquez on 03-04-2024 Globulin (S) [Mass/Vol] 2.7 g/dL [facility] Glucose [Mass/volume] in Ser um or PlasmaOrdered By: Sabrina Manriquez on 03-04-2024 Glucose [Mass/Vol] 132 mg/dL High 70-100 [facility] Comment on above: ADA recommended refe rence rangeRandom Glucose Reference Range is dependent on time and content of last meal. Glucose of more than 200 mg/dL in a nonstressed, ambulatory subject supports the diagnosis of Diabetes Mellitus. Glucose [Mass/volume] in Uri ne by Test stripOrdered By: Sabrina Manriquez on 03-04-2024 Glucose Test strip (U) [Mass/Vol] Normal mg/dL Normal [facility] Hematocrit Auto (Bld) [Volum e fraction]Ordered By: Sabrina Manriquez on 03-04-2024 Hematocrit (Bld) [Volume fraction] 42.8 % 38.8-50.0 [facility] Hemoglobin Test strip Ql (U) Ordered By: Sabrina Manriquez on 03-04-2024 Hemoglobin Ql (U) Negative Negative [facility] Hemoglobin [Mass/volume] in BloodOrdered By: Sabrina Manriquez on 03-04-2024 Hemoglobin (Bld) [Mass/Vol] 14.6 g/dL 13.0-17.0 [facility] Hyaline casts [#/area] in Ur ine sediment by Automated countOrdered By: Sabrina Manriquez on 03-04-2024 Hyaline casts Auto (Urine sed) [#/Area] None [LPF] 0-8 [facility] Ketones Test strip Ql (U)Ord ered By: Sabrina Manriquez on 03-04-2024 Ketones Ql (U) Negative Negative [facility] Leukocyte esterase [Presence ] in Urine by Test stripOrdered By: Sabrina Manriquez on 03-04-2024 Leukocyte esterase Test strip Ql (U) Negative Negative [facility] Leukocytes [#/area] in Urine sediment by Automated countOrdered By: Sabrina Manriquez on 03-04-2024 WBC Auto (Urine sed) [#/Area] 1-2 [HPF] 0-4 [facility] Leukocytes [#/volume] correc leah for nucleated erythrocytes in Blood by Automated counOrdered By: Sabrina Manriquez on 03-04-2024 WBC corrected for nucl RBC Auto (Bld) [#/Vol] 5.1 10*3/uL 4.1-10.5 [facility] Lymphocytes Auto (Bld) [#/Vo l]Ordered By: Sabrina Manriquez on 03-04-2024 Lymphocytes (Bld) [#/Vol] 1.1 10*3/uL 1.00-4.8 [facility] Lymphocytes/100 WBC Auto (Bl d)Ordered By: Sabrina Manriquez on 03-04-2024 Lymphocytes/100 WBC (Bld) 20.8 % . [facility] MCH Auto (RBC) [Entitic mass ]Ordered By: Sabrina Manriquez on 03-04-2024 MCH (RBC) [Entitic mass] 32.2 pg 27.5-35.2 [facility] MCHC Auto (RBC) [Mass/Vol]Or dered By: Sabrina Manriquez on 03-04-2024 MCHC (RBC) [Mass/Vol] 34.2 g/dL 32.5-35.6 [facility] MCV Auto (RBC) [Entitic vol] Ordered By: Sabrina Manriquez on 03-04-2024 MCV (RBC) [Entitic vol] 94.2 fL 83.5-101 [facility] Monocytes Auto (Bld) [#/Vol] Ordered By: Sabrina Manriquez on 03-04-2024 Monocytes (Bld) [#/Vol] 0.3 10*3/uL 0.0-0.8 [facility] Monocytes/100 WBC Auto (Bld) Ordered By: Sabrina Manriquez on 03-04-2024 Monocytes/100 WBC (Bld) 6.6 % . [facility] Mucus [Presence] in Urine by AutomatedOrdered By: Sabrina Manriquez on 03-04-2024 Mucus Auto Ql (U) Rare [LPF] [facility] Neutrophils Auto (Bld) [#/Vo l]Ordered By: Sabrina Manriquez on 03-04-2024 Neutrophils (Bld) [#/Vol] 3.6 10*3/uL 1.8-7.7 [facility] Neutrophils/100 WBC Auto (Bl d)Ordered By: Sabrina Manriquez on 03-04-2024 Neutrophils/100 WBC (Bld) 70.7 % . [facility] Nitrite Test strip Ql (U)Ord ered By: Sabrina Manriquez on 03-04-2024 Nitrite Ql (U) Negative Negative [facility] No Panel InformationOrdered By: Sabrina Manriquez on 03-04-2024 Estimated GFR (CKD-EPI) > 60.0 mL/Min [facility] Creatinine Clearance (Chem N/A [facility] Nucleated erythrocytes [Pres ence] in Blood by Automated countOrdered By: Sabrina Manriquez on 03-04-2024 Nucleated RBC Auto Ql (Bld) 0.1 /100{WBC} 0-0.5 [facility] Platelet mean volume Auto (B ld) [Entitic vol]Ordered By: Sabrina Manriquez on 03-04-2024 Platelet mean volume (Bld) [Entitic vol] 9.1 fL 6.6-10.1 [facility] Platelets Auto (Bld) [#/Vol] Ordered By: Sabrina Manriquez on 03-04-2024 Platelets (Bld) [#/Vol] 235 10*3/uL 150-450 [facility] Potassium [Moles/volume] in Serum or PlasmaOrdered By: Sabrina Manriquez on 03-04-2024 Potassium [Moles/Vol] 4.2 mmol/L 3.5-5.1 [facility] Protein Test strip (U) [Mass /Vol]Ordered By: Sabrina Manriquez on 03-04-2024 Protein (U) [Mass/Vol] Trace mg/dL High Negative [facility] Protein [Mass/volume] in Ser um or PlasmaOrdered By: Sabrina Manriquez on 03-04-2024 Protein [Mass/Vol] 7.1 g/dL 6.4-8.9 [facility] RBC Auto (Bld) [#/Vol]Ordere d By: Sabrina Manriquez on 03-04-2024 RBC (Bld) [#/Vol] 4.54 10*6/uL 3.90-5.60 [facility] Serum or plasma albumin/glob ulin mass ratioOrdered By: Sabrina Manriquez on 03-04-2024 Albumin/Globulin [Mass ratio] 1.6 {ratio} [facility] Serum or plasma anion gap de terminationOrdered By: Sabrina Manriquez on 03-04-2024 Anion gap [Moles/Vol] 10.8 mmol/L 6.0-15.0 [facility] Sodium [Moles/volume] in Ser um or PlasmaOrdered By: Sabrina Manriquez on 03-04-2024 Sodium [Moles/Vol] 140 mmol/L 136-145 [facility] Specific gravity Test strip (U) [Rel density]Ordered By: Sabrina Manriquez on 03-04-2024 Specific gravity (U) [Rel density] 1.020 1.001-1.03 0 [facility] Urea nitrogen [Mass/volume] in Serum or PlasmaOrdered By: Sabrina Manriquez on 03-04-2024 Urea nitrogen [Mass/Vol] 18 mg/dL 7-25 [facility] Urine appearanceOrdered By: Sabrina Manriquez on 03-04-2024 Appearance (U) Clear Clear [facility] Urobilinogen Test strip (U) [Mass/Vol]Ordered By: Sabrina Manriquez on 03-04-2024 Urobilinogen (U) [Mass/Vol] Normal mg/dL Normal [facility] WBC Auto (Bld) [#/Vol]Ordere d By: Sabrina Manriquez on 03-04-2024 WBC (Bld) [#/Vol] 5.1 10*3/uL 4.1-10.5 [facility] pH Test strip (U)Ordered By: Sabrina Manriquez on 03-04-2024 pH (U) 5.5 [pH] 5.0-9.0 [facility] Alanine aminotransferase [En zymatic activity/volume] in Serum or PlasmaOrdered By: Sabrina Manriquez on 11-19-2023 ALT [Catalytic activity/Vol] 28 U/L 7-52 [facility] Albumin [Mass/volume] in Ser um or Plasma by Bromocresol green (BCG) dye binding methoOrdered By: Sabrina Manriquez on 11-19-2023 Albumin BCG dye [Mass/Vol] 4.1 g/dL 3.5-5.7 [facility] Alkaline phosphatase [Enzyma tic activity/volume] in Serum or PlasmaOrdered By: Sabrina Manriquez on 11-19-2023 ALP [Catalytic activity/Vol] 70 U/L 34-104 [facility] Aspartate aminotransferase [ Enzymatic activity/volume] in Serum or PlasmaOrdered By: Sabrina Manriquez on 11-19-2023 AST [Catalytic activity/Vol] 29 U/L 13-39 [facility] Automated epithelial cells c ount in urine sediment (number/area)Ordered By: Sabrina Manriquez on 11-19-2023 Epithelial cells Auto (Urine sed) [#/Area] None seen [HPF] 0-2 [facility] Bacteria [Presence] in Urine by AutomatedOrdered By: Sabrina Manriquez on 11-19-2023 Bacteria Auto Ql (U) None seen [HPF] None Seen [facility] Basophils Auto (Bld) [#/Vol] Ordered By: Sabrina Manriquez on 11-19-2023 Basophils (Bld) [#/Vol] 0.0 10*3/uL 0.0-0.2 [facility] Basophils/100 WBC Auto (Bld) Ordered By: Sabrina Manriquez on 11-19-2023 Basophils/100 WBC (Bld) 0.7 % . [facility] Bilirubin Test strip Ql (U)O rdered By: Sabrina Manriquez on 11-19-2023 Bilirubin Ql (U) Negative Negative [facility] Bilirubin.total [Mass/volume ] in Serum or PlasmaOrdered By: Sabrina Manriquez on 11-19-2023 Bilirubin [Mass/Vol] 0.5 mg/dL 0.3-1.0 [facility] C reactive protein [Mass/vol ume] in Serum or PlasmaOrdered By: Sabrina Manriquez on 11-19-2023 CRP [Mass/Vol] < 0.5 mg/dL 0.0-0.5 [facility] Calcium [Mass/volume] in Ser um or PlasmaOrdered By: Sabrina Manriquez on 11-19-2023 Calcium [Mass/Vol] 9.1 mg/dL 8.6-10.3 [facility] Carbon dioxide, total [Moles /volume] in Serum or PlasmaOrdered By: Sabrina Manriquez on 11-19-2023 CO2 [Moles/Vol] 30.2 mmol/L 21.0-31.0 [facility] Chloride [Moles/volume] in S lenny or PlasmaOrdered By: Sabrina Manriquez on 11-19-2023 Chloride [Moles/Vol] 105 mmol/L 98-107 [facility] Color Auto (U)Ordered By: Emily Montiel on 11-19-2023 Color (U) Yellow Yellow [facility] Creatinine [Mass/volume] in Serum or PlasmaOrdered By: Sabrina Manriquez on 11-19-2023 Creatinine [Mass/Vol] 0.97 mg/dL 0.70-1.30 [facility] Eosinophils Auto (Bld) [#/Vo l]Ordered By: Sabrina Manriquez on 11-19-2023 Eosinophils (Bld) [#/Vol] 0.1 10*3/uL 0.0-0.45 [facility] Eosinophils/100 WBC Auto (Bl d)Ordered By: Sabrina Manriquez on 11-19-2023 Eosinophils/100 WBC (Bld) 1.6 % . [facility] Erythrocyte distribution wid th Auto (RBC) [Ratio]Ordered By: Sabrina Manriquez on 11-19-2023 Erythrocyte distribution width (RBC) [Ratio] 13.7 % 12.0-14.8 [facility] Erythrocyte sedimentation ra te by Photometric methodOrdered By: Sabrina Manriquez on 11-19-2023 ESR Photometric method (Bld) [Velocity] 5 mm/hr 0-19 [facility] Erythrocytes [#/area] in Uri ne sediment by Automated countOrdered By: Sabrina Manriquez on 11-19-2023 RBC Auto (Urine sed) [#/Area] 0-1 [HPF] 0-4 [facility] Globulin Calc (S) [Mass/Vol] Ordered By: Sabrina Manriquez on 11-19-2023 Globulin (S) [Mass/Vol] 2.6 g/dL [facility] Glucose [Mass/volume] in Ser um or PlasmaOrdered By: Sabrina Manriquez on 11-19-2023 Glucose [Mass/Vol] 115 mg/dL 70-100 [facility] Comment on above: ADA recommended refe rence rangeRandom Glucose Reference Range is dependent on time and content of last meal. Glucose of more than 200 mg/dL in a nonstressed, ambulatory subject supports the diagnosis of Diabetes Mellitus. Hematocrit Auto (Bld) [Volum e fraction]Ordered By: Sabrina Manriquez on 11-19-2023 Hematocrit (Bld) [Volume fraction] 44.2 % 38.8-50.0 [facility] Hemoglobin [Mass/volume] in BloodOrdered By: Sabrina Manriquez on 11-19-2023 Hemoglobin (Bld) [Mass/Vol] 15.0 g/dL 13.0-17.0 [facility] Ketones Auto test strip (U) [Mass/Vol]Ordered By: Sabrina Manriquez on 11-19-2023 Ketones (U) [Mass/Vol] Negative Negative [facility] - UrinalysisOrder ed By: Sabrina Manriquez on 11-19-2023 Hyaline casts LM Ql (Urine sed) None seen [LPF] 0-8 [facility] Leukocytes [#/area] in Urine sediment by Automated countOrdered By: Sabrina Manriquez on 11-19-2023 WBC Auto (Urine sed) [#/Area] 0-1 [HPF] 0-4 [facility] Leukocytes [#/volume] correc leah for nucleated erythrocytes in Blood by Automated counOrdered By: Sabrina Manriquez on 11-19-2023 WBC corrected for nucl RBC Auto (Bld) [#/Vol] 5.7 10*3/uL 4.1-10.5 [facility] Lymphocytes Auto (Bld) [#/Vo l]Ordered By: Sabrina Manriquez on 11-19-2023 Lymphocytes (Bld) [#/Vol] 1.1 10*3/uL 1.00-4.8 [facility] Lymphocytes/100 WBC Auto (Bl d)Ordered By: Sabrina Manriquez on 11-19-2023 Lymphocytes/100 WBC (Bld) 18.8 % . [facility] MCH Auto (RBC) [Entitic mass ]Ordered By: Sabrina Manriquez on 11-19-2023 MCH (RBC) [Entitic mass] 32.3 pg 27.5-35.2 [facility] MCHC Auto (RBC) [Mass/Vol]Or dered By: Sabrina Manriquez on 11-19-2023 MCHC (RBC) [Mass/Vol] 34.0 g/dL 32.5-35.6 [facility] MCV Auto (RBC) [Entitic vol] Ordered By: Sabrina Manriquez on 11-19-2023 MCV (RBC) [Entitic vol] 95.2 fL 83.5-101 [facility] Monocytes Auto (Bld) [#/Vol] Ordered By: Sabrina Manriquez on 11-19-2023 Monocytes (Bld) [#/Vol] 0.5 10*3/uL 0.0-0.8 [facility] Monocytes/100 WBC Auto (Bld) Ordered By: Sabrina Manriquez on 11-19-2023 Monocytes/100 WBC (Bld) 8.0 % . [facility] Neutrophils Auto (Bld) [#/Vo l]Ordered By: Sabrina Manriquez on 11-19-2023 Neutrophils (Bld) [#/Vol] 4.1 10*3/uL 1.8-7.7 [facility] Neutrophils/100 WBC Auto (Bl d)Ordered By: Sabrina Manriquez on 11-19-2023 Neutrophils/100 WBC (Bld) 70.9 % . [facility] Nitrite Test strip Ql (U)Ord ered By: Sabrina Manriquez on 11-19-2023 Nitrite Ql (U) Negative Negative [facility] No Panel InformationOrdered By: Sabrina Manriquez on 11-19-2023 Estimated GFR (CKD-EPI) > 60.0 mL/Min [facility] Creatinine Clearance (Chem N/A [facility] Nucleated erythrocytes [Pres ence] in Blood by Automated countOrdered By: Sabrina Manriquez on 11-19-2023 Nucleated RBC Auto Ql (Bld) 0.1 /100{WBC} 0-0.5 [facility] Platelet mean volume Auto (B ld) [Entitic vol]Ordered By: Sabrina Manriquez on 11-19-2023 Platelet mean volume (Bld) [Entitic vol] 9.3 fL 6.6-10.1 [facility] Platelets Auto (Bld) [#/Vol] Ordered By: Sabrina Manriquez on 11-19-2023 Platelets (Bld) [#/Vol] 220 10*3/uL 150-450 [facility] Potassium [Moles/volume] in Serum or PlasmaOrdered By: Sabrina Manriquez on 11-19-2023 Potassium [Moles/Vol] 4.4 mmol/L 3.5-5.1 [facility] Protein Auto test strip (U) [Mass/Vol]Ordered By: Sabrina Manriquez on 11-19-2023 Protein (U) [Mass/Vol] Negative Negative [facility] Protein [Mass/volume] in Ser um or PlasmaOrdered By: Sabrina Manriquez on 11-19-2023 Protein [Mass/Vol] 6.7 g/dL 6.4-8.9 [facility] RBC Auto (Bld) [#/Vol]Ordere d By: Sabrina Manriquez on 11-19-2023 RBC (Bld) [#/Vol] 4.64 10*6/uL 3.90-5.60 [facility] Serum or plasma albumin/glob ulin mass ratioOrdered By: Sabrina Manriquez on 11-19-2023 Albumin/Globulin [Mass ratio] 1.6 {ratio} [facility] Serum or plasma anion gap de terminationOrdered By: Sabrina Manriquez on 11-19-2023 Anion gap [Moles/Vol] 9.2 mmol/L 6.0-15.0 [facility] Sodium [Moles/volume] in Ser um or PlasmaOrdered By: Sabrina Manriquez on 11-19-2023 Sodium [Moles/Vol] 140 mmol/L 136-145 [facility] Specific gravity Auto test s trip (U) [Rel density]Ordered By: Sabrina Manriquez on 11-19-2023 Specific gravity (U) [Rel density] 1.021 1.001-1.03 0 [facility] Urea nitrogen [Mass/volume] in Serum or PlasmaOrdered By: Sabrina Manriquez on 11-19-2023 Urea nitrogen [Mass/Vol] 17 mg/dL 01-15 [facility] Urine clarity by refractomet ry automatedOrdered By: Sabrina Manriquez on 11-19-2023 Clarity Refractometry automated (U) Clear Clear [facility] Urine glucose measurement by automated test strip (mass/volume)Ordered By: Sabrina Manriquez on 11-19-2023 Glucose Auto test strip (U) [Mass/Vol] Normal mg/dL Normal [facility] Urine hemoglobin detection b y automated test stripOrdered By: Sabrina Manriquez on 11-19-2023 Hemoglobin Auto test strip Ql (U) Negative Negative [facility] Urine leukocyte esterase det ection by automated test stripOrdered By: Sabrina Manriquez on 11-19-2023 Leukocyte esterase Auto test strip Ql (U) Negative Negative [facility] Urobilinogen Auto test strip (U) [Mass/Vol]Ordered By: Sabrina Manriquez on 11-19-2023 Urobilinogen (U) [Mass/Vol] Normal mg/dL Normal [facility] WBC Auto (Bld) [#/Vol]Ordere d By: Sabrina Manriquez on 11-19-2023 WBC (Bld) [#/Vol] 5.7 10*3/uL 4.1-10.5 [facility] pH Auto test strip (U)Ordere d By: Sabrina Manriquez on 11-19-2023 pH (U) 5.5 [pH] 5.0-9.0 [facility] Alanine aminotransferase [En zymatic activity/volume] in Serum or PlasmaOrdered By: Sabrina Manriquez on 07-18-2023 ALT [Catalytic activity/Vol] 32 U/L [facility] Albumin [Mass/volume] in Ser um or Plasma by Bromocresol green (BCG) dye binding methoOrdered By: Sabrina Manriquez on 07-18-2023 Albumin BCG dye [Mass/Vol] 4.3 g/dL 3.5-5.7 [facility] Alkaline phosphatase [Enzyma tic activity/volume] in Serum or PlasmaOrdered By: Sabrina Manriquez on 07-18-2023 ALP [Catalytic activity/Vol] 78 U/L 34-104 [facility] Aspartate aminotransferase [ Enzymatic activity/volume] in Serum or PlasmaOrdered By: Sabrina Manriquez on 07-18-2023 AST [Catalytic activity/Vol] 28 U/L 13-39 [facility] Automated erythrocytes count in urine sediment (number/area)Ordered By: Sabrina Manriquez on 07-18-2023 RBC Auto (Urine sed) [#/Area] 0-1 [HPF] 0-4 [facility] Automated leukocytes count i n urine sediment (number/area)Ordered By: Sabrina Manriquez on 07-18-2023 WBC Auto (Urine sed) [#/Area] 0-1 [HPF] 0-4 [facility] Basophils Auto (Bld) [#/Vol] Ordered By: Sabrina Manriquez on 07-18-2023 Basophils (Bld) [#/Vol] 0.1 10*3/uL 0.0-0.2 [facility] [facility]100 WBC Auto (Bld) Ordered By: Sabrina Manriquez on 07-18-2023 Basophils/100 WBC (Bld) 0.8 % . [facility] Bilirubin Test strip Ql (U)O rdered By: Sabrina Manriquez on 07-18-2023 Bilirubin Ql (U) Negative Negative [facility] Bilirubin.total [Mass/volume ] in Serum or PlasmaOrdered By: Sabrina Manriquez on 07-18-2023 Bilirubin [Mass/Vol] 0.5 mg/dL 0.3-1.0 [facility] C reactive protein [Mass/vol ume] in Serum or PlasmaOrdered By: Sabrina Manriquez on 07-18-2023 CRP [Mass/Vol] < 0.5 mg/dL 0.0-0.5 [facility] Calcium [Mass/volume] in Ser um or PlasmaOrdered By: Sabrina Manriquez on 07-18-2023 Calcium [Mass/Vol] 9.2 mg/dL 8.6-10.3 [facility] Carbon dioxide, total [Moles /volume] in Serum or PlasmaOrdered By: Sabrina Manriquez on 07-18-2023 CO2 [Moles/Vol] 30.1 mmol/L 21.0-31.0 [facility] Chloride [Moles/volume] in S lenny or PlasmaOrdered By: Sabrina Manriquez on 07-18-2023 Chloride [Moles/Vol] 105 mmol/L 98-107 [facility] Color Auto (U)Ordered By: Emily Montiel on 07-18-2023 Color (U) Yellow Yellow [facility] Creatinine [Mass/volume] in Serum or PlasmaOrdered By: Sabrina Manriquez on 07-18-2023 Creatinine [Mass/Vol] 0.93 mg/dL 0.70-1.30 [facility] Eosinophils Auto (Bld) [#/Vo l]Ordered By: Sabrina Manriquez on 07-18-2023 Eosinophils (Bld) [#/Vol] 0.0 10*3/uL 0.0-0.45 [facility] Eosinophils/100 WBC Auto (Bl d)Ordered By: Sabrina Manriquez on 07-18-2023 Eosinophils/100 WBC (Bld) 0.7 % . [facility] Erythrocyte distribution wid th Auto (RBC) [Ratio]Ordered By: Sabrina Manriquez on 07-18-2023 Erythrocyte distribution width (RBC) [Ratio] 13.9 % 12.0-14.8 [facility] Erythrocyte sedimentation ra te by Photometric methodOrdered By: Sabrina Manriquez on 07-18-2023 ESR Photometric method (Bld) [Velocity] 7 mm/hr 0-19 [facility] Globulin Calc (S) [Mass/Vol] Ordered By: Sabrina Manriquez on 07-18-2023 Globulin (S) [Mass/Vol] 2.5 g/dL [facility] Glucose [Mass/volume] in Ser um or PlasmaOrdered By: Sabrina Manriquez on 07-18-2023 Glucose [Mass/Vol] 89 mg/dL 70-100 [facility] Comment on above: ADA recommended refe rence rangeRandom Glucose Reference Range is dependent on time and content of last meal. Glucose of more than 200 mg/dL in a nonstressed, ambulatory subject supports the diagnosis of Diabetes Mellitus. Hematocrit Auto (Bld) [Volum e fraction]Ordered By: Sabrina Manriquez on 07-18-2023 Hematocrit (Bld) [Volume fraction] 44.3 % 38.8-50.0 [facility] Hemoglobin [Mass/volume] in BloodOrdered By: Sabrina Manriquez on 07-18-2023 Hemoglobin (Bld) [Mass/Vol] 15.2 g/dL 13.0-17.0 [facility] Ketones Auto test strip (U) [Mass/Vol]Ordered By: Sabrina Manriquez on 07-18-2023 Ketones (U) [Mass/Vol] Trace Negative [facility] - UrinalysisOrder ed By: Sabrina Manriquez on 07-18-2023 Hyaline casts LM Ql (Urine sed) None seen [LPF] 0-8 [facility] Leukocytes [#/volume] correc leah for nucleated erythrocytes in Blood by Automated counOrdered By: Sabrina Manriquez on 07-18-2023 WBC corrected for nucl RBC Auto (Bld) [#/Vol] 6.3 10*3/uL 4.1-10.5 [facility] Lymphocytes Auto (Bld) [#/Vo l]Ordered By: Sabrina Manriquez on 07-18-2023 Lymphocytes (Bld) [#/Vol] 0.9 10*3/uL 1.00-4.8 [facility] Lymphocytes/100 WBC Auto (Bl d)Ordered By: Sabrina Manriquez on 07-18-2023 Lymphocytes/100 WBC (Bld) 15.1 % . [facility] MCH Auto (RBC) [Entitic mass ]Ordered By: Sabrina Manriquez on 07-18-2023 MCH (RBC) [Entitic mass] 32.3 pg 27.5-35.2 [facility] MCHC Auto (RBC) [Mass/Vol]Or dered By: Sabrina Manriquez on 07-18-2023 MCHC (RBC) [Mass/Vol] 34.2 g/dL 32.5-35.6 [facility] MCV Auto (RBC) [Entitic vol] Ordered By: Sabrina Manriquez on 07-18-2023 MCV (RBC) [Entitic vol] 94.4 fL 83.5-101 [facility] Monocytes Auto (Bld) [#/Vol] Ordered By: Sabrina Manriquez on 07-18-2023 Monocytes (Bld) [#/Vol] 0.6 10*3/uL 0.0-0.8 [facility] Monocytes/100 WBC Auto (Bld) Ordered By: Sabrina Manriquez on 07-18-2023 Monocytes/100 WBC (Bld) 8.9 % . [facility] Neutrophils Auto (Bld) [#/Vo l]Ordered By: Sabrina Manriquez on 07-18-2023 Neutrophils (Bld) [#/Vol] 4.7 10*3/uL 1.8-7.7 [facility] Neutrophils/100 WBC Auto (Bl d)Ordered By: Sabrina Manriquez on 07-18-2023 Neutrophils/100 WBC (Bld) 74.5 % . [facility] Nitrite Test strip Ql (U)Ord ered By: Sabrina Manriquez on 07-18-2023 Nitrite Ql (U) Negative Negative [facility] No Panel InformationOrdered By: Sabrina Manriquez on 07-18-2023 Estimated GFR (CKD-EPI) > 60.0 mL/Min [facility] Creatinine Clearance (Chem N/A [facility] Nucleated erythrocytes [Pres ence] in Blood by Automated countOrdered By: Sabrina Manriquez on 07-18-2023 Nucleated RBC Auto Ql (Bld) 0.1 /100{WBC} 0-0.5 [facility] Platelet mean volume Auto (B ld) [Entitic vol]Ordered By: Sabrina Manriquez on 07-18-2023 Platelet mean volume (Bld) [Entitic vol] 8.8 fL 6.6-10.1 [facility] Platelets Auto (Bld) [#/Vol] Ordered By: Sabrina Manriquez on 07-18-2023 Platelets (Bld) [#/Vol] 235 10*3/uL 150-450 [facility] Potassium [Moles/volume] in Serum or PlasmaOrdered By: Sabrina Manriquez on 07-18-2023 Potassium [Moles/Vol] 4.1 mmol/L 3.5-5.1 [facility] Protein Auto test strip (U) [Mass/Vol]Ordered By: Sabrina Manriquez on 07-18-2023 Protein (U) [Mass/Vol] Negative Negative [facility] Protein [Mass/volume] in Ser um or PlasmaOrdered By: Sabrina Manriquez on 07-18-2023 Protein [Mass/Vol] 6.8 g/dL 6.4-8.9 [facility] RBC Auto (Bld) [#/Vol]Ordere d By: Sabrina Manriquez on 07-18-2023 RBC (Bld) [#/Vol] 4.69 10*6/uL 3.90-5.60 [facility] Serum or plasma albumin/glob ulin mass ratioOrdered By: Sabrina Manriquez on 07-18-2023 Albumin/Globulin [Mass ratio] 1.7 {ratio} [facility] Serum or plasma anion gap de terminationOrdered By: Sabrina Manriquez on 07-18-2023 Anion gap [Moles/Vol] 9.0 mmol/L 6.0-15.0 [facility] Sodium [Moles/volume] in Ser um or PlasmaOrdered By: Sabrina Manriquez on 07-18-2023 Sodium [Moles/Vol] 140 mmol/L 136-145 [facility] Specific gravity Auto test s trip (U) [Rel density]Ordered By: Sabrina Manriquez on 07-18-2023 Specific gravity (U) [Rel density] 1.023 1.001-1.03 0 [facility] Squamous epithelial cells de tection in urine sediment by light microscopyOrdered By: Sabrina Manriquez on 07-18-2023 Epithelial cells.squamous LM Ql (Urine sed) None seen [HPF] 0-2 [facility] Urea nitrogen [Mass/volume] in Serum or PlasmaOrdered By: Sabrina Manriquez on 07-18-2023 Urea nitrogen [Mass/Vol] 22 mg/dL 7 [facility] Urine bacteria detection by automated methodOrdered By: Sabrina Manriquez on 07-18-2023 Bacteria Auto Ql (U) None seen None Seen [facility] Urine clarity by refractomet ry automatedOrdered By: Sabrina Manriquez on 07-18-2023 Clarity Refractometry automated (U) Clear Clear [facility] Urine glucose measurement by automated test strip (mass/volume)Ordered By: Sabrina Manriquez on 07-18-2023 Glucose Auto test strip (U) [Mass/Vol] Normal mg/dL Normal [facility] Urine hemoglobin detection b y automated test stripOrdered By: Sabrina Manriquez on 07-18-2023 Hemoglobin Auto test strip Ql (U) Negative Negative [facility] Urine leukocyte esterase det ection by automated test stripOrdered By: Sabrina Manriquez on 07-18-2023 Leukocyte esterase Auto test strip Ql (U) Negative Negative [facility] Urobilinogen Auto test strip (U) [Mass/Vol]Ordered By: Sabrina Manriquez on 07-18-2023 Urobilinogen (U) [Mass/Vol] Normal mg/dL Normal [facility] WBC Auto (Bld) [#/Vol]Ordere d By: Sabrina Manriquez on 07-18-2023 WBC (Bld) [#/Vol] 6.3 10*3/uL 4.1-10.5 [facility] pH Auto test strip (U)Ordere d By: Sabrina Manriquez on 07-18-2023 pH (U) 5.5 [pH] 5.0-9.0 [facility] CNOVon 03-12-2023 CNOV Office Visit (ORFTMN ) -------- JAY CARR ([id number]) 1960 M Date Time Provider Department 03/12/23 [...] No PCP: Dania Armstrong MD [address] [facility] [id number] FELLOW / RESIDENT: No fellow or resident assisted in th (more content not included)... Normal [facility] Alanine aminotransferase [En zymatic activity/volume] in Serum or PlasmaOrdered By: Hudson De Leon on 02-19-2023 ALT [Catalytic activity/Vol] 24 U/L 7-52 [facility] Albumin [Mass/volume] in Ser um or Plasma by Bromocresol green (BCG) dye binding methoOrdered By: Hudson De Leon on 02-19-2023 Albumin BCG dye [Mass/Vol] 4.1 g/dL 3.5-5.7 [facility] Alkaline phosphatase [Enzyma tic activity/volume] in Serum or PlasmaOrdered By: Hudson De Leon on 02-19-2023 ALP [Catalytic activity/Vol] 90 U/L 34-104 [facility] Aspartate aminotransferase [ Enzymatic activity/volume] in Serum or PlasmaOrdered By: Hudson De Leon on 02-19-2023 AST [Catalytic activity/Vol] 27 U/L 13-39 [facility] Automated erythrocytes count in urine sediment (number/area)Ordered By: Hudson De Leon on 02-19-2023 RBC Auto (Urine sed) [#/Area] 0-1 [HPF] 0-4 [facility] Automated leukocytes count i n urine sediment (number/area)Ordered By: Hudson De Leon on 02-19-2023 WBC Auto (Urine sed) [#/Area] None seen [HPF] 0-4 [facility] Basophils Auto (Bld) [#/Vol] Ordered By: Hudson De Leon on 02-19-2023 Basophils (Bld) [#/Vol] 0.0 10*3/uL 0.0-0.2 [facility] Basophils/100 WBC Auto (Bld) Ordered By: Hudson De Leon on 02-19-2023 Basophils/100 WBC (Bld) 0.7 % . [facility] Bilirubin Test strip Ql (U)O rdered By: Hudson De Leon on 02-19-2023 Bilirubin Ql (U) Negative Negative [facility] Bilirubin.total [Mass/volume ] in Serum or PlasmaOrdered By: Hudson De Leon on 02-19-2023 Bilirubin [Mass/Vol] 0.6 mg/dL 0.3-1.0 [facility] Calcium [Mass/volume] in Ser um or PlasmaOrdered By: Hudson De Leon on 02-19-2023 Calcium [Mass/Vol] 9.0 mg/dL 8.6-10.3 [facility] Carbon dioxide, total [Moles /volume] in Serum or PlasmaOrdered By: Hudson De Leon on 02-19-2023 CO2 [Moles/Vol] 29.6 mmol/L 21.0-31.0 [facility] Chloride [Moles/volume] in S lenny or PlasmaOrdered By: Hudson De Leon on 02-19-2023 Chloride [Moles/Vol] 105 mmol/L 98-107 [facility] Color Auto (U)Ordered By: Jessica De Leon on 02-19-2023 Color (U) Yellow Yellow [facility] Creatinine [Mass/volume] in Serum or PlasmaOrdered By: Hudson De Leon on 02-19-2023 Creatinine [Mass/Vol] 0.95 mg/dL 0.70-1.30 [facility] Eosinophils Auto (Bld) [#/Vo l]Ordered By: Hudson De Leon on 02-19-2023 Eosinophils (Bld) [#/Vol] 0.0 10*3/uL 0.0-0.45 [facility] Eosinophils/100 WBC Auto (Bl d)Ordered By: Hudson De Leon on 02-19-2023 Eosinophils/100 WBC (Bld) 1.0 % . [facility] Erythrocyte distribution wid th Auto (RBC) [Ratio]Ordered By: Hudson De Leon on 02-19-2023 Erythrocyte distribution width (RBC) [Ratio] 13.6 % 12.0-14.8 [facility] Erythrocyte sedimentation ra te by Photometric methodOrdered By: Hudson De Leon on 02-19-2023 ESR Photometric method (Bld) [Velocity] 7 mm/hr 0-19 [facility] Globulin Calc (S) [Mass/Vol] Ordered By: Hudson De Leon on 02-19-2023 Globulin (S) [Mass/Vol] 2.6 g/dL [facility] Glucose [Mass/volume] in Ser um or PlasmaOrdered By: Hudson De Leon on 02-19-2023 Glucose [Mass/Vol] 108 mg/dL 70-100 [facility] Comment on above: ADA recommended refe rence rangeRandom Glucose Reference Range is dependent on time and content of last meal. Glucose of more than 200 mg/dL in a nonstressed, ambulatory subject supports the diagnosis of Diabetes Mellitus. Hematocrit Auto (Bld) [Volum e fraction]Ordered By: Hudson De Leon on 02-19-2023 Hematocrit (Bld) [Volume fraction] 42.3 % 38.8-50.0 [facility] Hemoglobin [Mass/volume] in BloodOrdered By: Hudson De Leon on 02-19-2023 Hemoglobin (Bld) [Mass/Vol] 14.3 g/dL 13.0-17.0 [facility] Ketones Auto test strip (U) [Mass/Vol]Ordered By: Hudson De Leon on 02-19-2023 Ketones (U) [Mass/Vol] Negative Negative [facility] - UrinalysisOrder ed By: Hudson De Leon on 02-19-2023 Hyaline casts LM Ql (Urine sed) None seen [LPF] 0-8 [facility] Leukocytes [#/volume] correc leah for nucleated erythrocytes in Blood by Automated counOrdered By: Hudson De Leon on 02-19-2023 WBC corrected for nucl RBC Auto (Bld) [#/Vol] 4.7 10*3/uL 4.1-10.5 [facility] Lymphocytes Auto (Bld) [#/Vo l]Ordered By: Hudson De Leon on 02-19-2023 Lymphocytes (Bld) [#/Vol] 0.9 10*3/uL 1.00-4.8 [facility] Lymphocytes/100 WBC Auto (Bl d)Ordered By: Hudson De Leon on 02-19-2023 Lymphocytes/100 WBC (Bld) 18.5 % . [facility] MCH Auto (RBC) [Entitic mass ]Ordered By: Hudson De Leon on 02-19-2023 MCH (RBC) [Entitic mass] 31.5 pg 27.5-35.2 [facility] MCHC Auto (RBC) [Mass/Vol]Or dered By: Hudson De Leon on 02-19-2023 MCHC (RBC) [Mass/Vol] 33.9 g/dL 32.5-35.6 [facility] MCV Auto (RBC) [Entitic vol] Ordered By: Hudson De Leon on 02-19-2023 MCV (RBC) [Entitic vol] 93.0 fL 83.5-101 [facility] Monocytes Auto (Bld) [#/Vol] Ordered By: Hudson De Leon on 02-19-2023 Monocytes (Bld) [#/Vol] 0.4 10*3/uL 0.0-0.8 [facility] Monocytes/100 WBC Auto (Bld) Ordered By: Hudson De Leon on 02-19-2023 Monocytes/100 WBC (Bld) 8.1 % . [facility] Neutrophils Auto (Bld) [#/Vo l]Ordered By: Hudson De Leon on 02-19-2023 Neutrophils (Bld) [#/Vol] 3.4 10*3/uL 1.8-7.7 [facility] Neutrophils/100 WBC Auto (Bl d)Ordered By: Hudson De Leon on 02-19-2023 Neutrophils/100 WBC (Bld) 71.7 % . [facility] Nitrite Test strip Ql (U)Ord ered By: Hudson De Leon on 02-19-2023 Nitrite Ql (U) Negative Negative [facility] No Panel InformationOrdered By: Hudson De Leon on 02-19-2023 Estimated GFR (CKD-EPI) > 60.0 mL/Min [facility] Creatinine Clearance (Chem N/A [facility] Nucleated erythrocytes [Pres ence] in Blood by Automated countOrdered By: Hudson De Leon on 02-19-2023 Nucleated RBC Auto Ql (Bld) 0.1 /100{WBC} 0-0.5 [facility] Platelet mean volume Auto (B ld) [Entitic vol]Ordered By: Hudson De Leon on 02-19-2023 Platelet mean volume (Bld) [Entitic vol] 9.0 fL 6.6-10.1 [facility] Platelets Auto (Bld) [#/Vol] Ordered By: Hudson De Leon on 02-19-2023 Platelets (Bld) [#/Vol] 198 10*3/uL 150-450 [facility] Potassium [Moles/volume] in Serum or PlasmaOrdered By: Hudson De Leon on 02-19-2023 Potassium [Moles/Vol] 4.0 mmol/L 3.5-5.1 [facility] Protein Auto test strip (U) [Mass/Vol]Ordered By: Hudson De Leon on 02-19-2023 Protein (U) [Mass/Vol] Negative Negative [facility] Protein [Mass/volume] in Ser um or PlasmaOrdered By: Hudson De Leon on 02-19-2023 Protein [Mass/Vol] 6.7 g/dL 6.4-8.9 [facility] RBC Auto (Bld) [#/Vol]Ordere d By: Hudson De Leon on 02-19-2023 RBC (Bld) [#/Vol] 4.55 10*6/uL 3.90-5.60 [facility] Serum or plasma albumin/glob ulin mass ratioOrdered By: Hudson De Leon on 02-19-2023 Albumin/Globulin [Mass ratio] 1.6 {ratio} [facility] Serum or plasma anion gap de terminationOrdered By: Hudson De Leon on 02-19-2023 Anion gap [Moles/Vol] 9.4 mmol/L 6.0-15.0 [facility] Sodium [Moles/volume] in Ser um or PlasmaOrdered By: Hudson De Leon on 02-19-2023 Sodium [Moles/Vol] 140 mmol/L 136-145 [facility] Specific gravity Auto test s trip (U) [Rel density]Ordered By: Hudson De Leon on 02-19-2023 Specific gravity (U) [Rel density] 1.018 1.001-1.03 0 [facility] Squamous epithelial cells de tection in urine sediment by light microscopyOrdered By: Hudson De Leon on 02-19-2023 Epithelial cells.squamous LM Ql (Urine sed) None seen [HPF] 0-2 [facility] Urea nitrogen [Mass/volume] in Serum or PlasmaOrdered By: Hudson De Leon on 02-19-2023 Urea nitrogen [Mass/Vol] 16 mg/dL 7- [facility] Urine bacteria detection by automated methodOrdered By: Hudson De Leon on 02-19-2023 Bacteria Auto Ql (U) None seen None Seen [facility] Urine clarity by refractomet ry automatedOrdered By: Hudson De Leon on 02-19-2023 Clarity Refractometry automated (U) Clear Clear [facility] Urine glucose measurement by automated test strip (mass/volume)Ordered By: Hudson De Leon on 02-19-2023 Glucose Auto test strip (U) [Mass/Vol] Normal mg/dL Normal [facility] Urine hemoglobin detection b y automated test stripOrdered By: Hudson De Leon on 02-19-2023 Hemoglobin Auto test strip Ql (U) Negative Negative [facility] Urine leukocyte esterase det ection by automated test stripOrdered By: Hudson De Leon on 02-19-2023 Leukocyte esterase Auto test strip Ql (U) Negative Negative [facility] Urobilinogen Auto test strip (U) [Mass/Vol]Ordered By: Hudson De Leon on 02-19-2023 Urobilinogen (U) [Mass/Vol] Normal mg/dL Normal [facility] WBC Auto (Bld) [#/Vol]Ordere d By: Hudson De Leon on 02-19-2023 WBC (Bld) [#/Vol] 4.7 10*3/uL 4.1-10.5 [facility] pH Auto test strip (U)Ordere d By: Hudson De Leon on 02-19-2023 pH (U) 5.5 [pH] 5.0-9.0 [facility] Alanine aminotransferase [En zymatic activity/volume] in Serum or PlasmaOrdered By: Hudson De Leon on 10-15-2022 ALT [Catalytic activity/Vol] 19 U/L 7-52 [facility] Albumin [Mass/volume] in Ser um or Plasma by Bromocresol green (BCG) dye binding methoOrdered By: Hudson De Leon on 10-15-2022 Albumin BCG dye [Mass/Vol] 4.1 g/dL 3.5-5.7 [facility] Alkaline phosphatase [Enzyma tic activity/volume] in Serum or PlasmaOrdered By: Hudson De Leon on 10-15-2022 ALP [Catalytic activity/Vol] 89 U/L 34-104 [facility] Aspartate aminotransferase [ Enzymatic activity/volume] in Serum or PlasmaOrdered By: Hudson De Leon on 10-15-2022 AST [Catalytic activity/Vol] 19 U/L 13-39 [facility] Automated erythrocytes count in urine sediment (number/area)Ordered By: Hudson De Leon on 10-15-2022 RBC Auto (Urine sed) [#/Area] 1-2 [HPF] 0-4 [facility] Automated leukocytes count i n urine sediment (number/area)Ordered By: Hudson De Leon on 10-15-2022 WBC Auto (Urine sed) [#/Area] None seen [HPF] 0-4 [facility] Basophils Auto (Bld) [#/Vol] Ordered By: Hudson De Leon on 10-15-2022 Basophils (Bld) [#/Vol] 0.0 10*3/uL 0.0-0.2 [facility] Basophils/100 WBC Auto (Bld) Ordered By: Hudson De Leon on 10-15-2022 Basophils/100 WBC (Bld) 0.5 % . [facility] Bilirubin Test strip Ql (U)O rdered By: Hudson De Leon on 10-15-2022 Bilirubin Ql (U) Negative Negative [facility] Bilirubin.total [Mass/volume ] in Serum or PlasmaOrdered By: Hudson De Leon on 10-15-2022 Bilirubin [Mass/Vol] 0.6 mg/dL 0.3-1.0 [facility] Calcium [Mass/volume] in Ser um or PlasmaOrdered By: Hudson De Leon on 10-15-2022 Calcium [Mass/Vol] 8.5 mg/dL 8.6-10.3 [facility] Carbon dioxide, total [Moles /volume] in Serum or PlasmaOrdered By: Hudson De Leon on 10-15-2022 CO2 [Moles/Vol] 27.8 mmol/L 21.0-31.0 [facility] Chloride [Moles/volume] in S lenny or PlasmaOrdered By: Hudson De Leon on 10-15-2022 Chloride [Moles/Vol] 106 mmol/L 98-107 [facility] Color Auto (U)Ordered By: Jessica ttdwain Haley on 10-15-2022 Color (U) Yellow Yellow [facility] Creatinine [Mass/volume] in Serum or PlasmaOrdered By: Hudson De Leon on 10-15-2022 Creatinine [Mass/Vol] 1.09 mg/dL 0.70-1.30 [facility] Eosinophils Auto (Bld) [#/Vo l]Ordered By: Hudson De Leon on 10-15-2022 Eosinophils (Bld) [#/Vol] 0.1 10*3/uL 0.0-0.45 [facility] Eosinophils/100 WBC Auto (Bl d)Ordered By: Hudson De Leon on 10-15-2022 Eosinophils/100 WBC (Bld) 1.6 % . [facility] Erythrocyte distribution wid th Auto (RBC) [Ratio]Ordered By: Hudson De Leon on 10-15-2022 Erythrocyte distribution width (RBC) [Ratio] 14.2 % 12.0-14.8 [facility] Erythrocyte sedimentation ra te by Photometric methodOrdered By: Hudson De Leon on 10-15-2022 ESR Photometric method (Bld) [Velocity] 6 mm/hr 0-19 [facility] Globulin Calc (S) [Mass/Vol] Ordered By: Hudson De Leon on 10-15-2022 Globulin (S) [Mass/Vol] 2.8 g/dL [facility] Glucose [Mass/volume] in Ser um or PlasmaOrdered By: Hudson De Leon on 10-15-2022 Glucose [Mass/Vol] 139 mg/dL 70-100 [facility] Comment on above: ADA recommended refe rence rangeRandom Glucose Reference Range is dependent on time and content of last meal. Glucose of more than 200 mg/dL in a nonstressed, ambulatory subject supports the diagnosis of Diabetes Mellitus. Hematocrit Auto (Bld) [Volum e fraction]Ordered By: Hudson De Leon on 10-15-2022 Hematocrit (Bld) [Volume fraction] 42.6 % 38.8-50.0 [facility] Hemoglobin [Mass/volume] in BloodOrdered By: Hudson De Leon on 10-15-2022 Hemoglobin (Bld) [Mass/Vol] 14.4 g/dL 13.0-17.0 [facility] Ketones Auto test strip (U) [Mass/Vol]Ordered By: Hudson De Leon on 10-15-2022 Ketones (U) [Mass/Vol] Negative Negative [facility] - UrinalysisOrder ed By: Hudson De Leon on 10-15-2022 Hyaline casts LM Ql (Urine sed) None seen [LPF] 0-8 [facility] Leukocytes [#/volume] correc leah for nucleated erythrocytes in Blood by Automated counOrdered By: Hudson De Leon on 10-15-2022 WBC corrected for nucl RBC Auto (Bld) [#/Vol] 4.9 10*3/uL 4.1-10.5 [facility] Lymphocytes Auto (Bld) [#/Vo l]Ordered By: Hudson De Leon on 10-15-2022 Lymphocytes (Bld) [#/Vol] 1.0 10*3/uL 1.00-4.8 [facility] Lymphocytes/100 WBC Auto (Bl d)Ordered By: Hudson De Leon on 10-15-2022 Lymphocytes/100 WBC (Bld) 20.0 % . [facility] MCH Auto (RBC) [Entitic mass ]Ordered By: Hudson De Leon on 10-15-2022 MCH (RBC) [Entitic mass] 31.2 pg 27.5-35.2 [facility] MCHC Auto (RBC) [Mass/Vol]Or dered By: Hudson De Leon on 10-15-2022 MCHC (RBC) [Mass/Vol] 33.7 g/dL 32.5-35.6 [facility] MCV Auto (RBC) [Entitic vol] Ordered By: Hudson De Leon on 10-15-2022 MCV (RBC) [Entitic vol] 92.8 fL 83.5-101 [facility] Monocytes Auto (Bld) [#/Vol] Ordered By: Hudson De Leon on 10-15-2022 Monocytes (Bld) [#/Vol] 0.4 10*3/uL 0.0-0.8 [facility] Monocytes/100 WBC Auto (Bld) Ordered By: Hudson De Leon on 10-15-2022 Monocytes/100 WBC (Bld) 8.6 % . [facility] Neutrophils Auto (Bld) [#/Vo l]Ordered By: Hudson De Leon on 10-15-2022 Neutrophils (Bld) [#/Vol] 3.4 10*3/uL 1.8-7.7 [facility] Neutrophils/100 WBC Auto (Bl d)Ordered By: Hudson De Leon on 10-15-2022 Neutrophils/100 WBC (Bld) 69.3 % . [facility] Nitrite Test strip Ql (U)Ord ered By: Hudson De Leon on 10-15-2022 Nitrite Ql (U) Negative Negative [facility] No Panel InformationOrdered By: Hudson De Leon on 10-15-2022 Estimated GFR (CKD-EPI) > 60.0 mL/Min [facility] Creatinine Clearance (Chem N/A [facility] Nucleated erythrocytes [Pres ence] in Blood by Automated countOrdered By: Hudson De Leon on 10-15-2022 Nucleated RBC Auto Ql (Bld) 0.1 /100{WBC} 0-0.5 [facility] Platelet mean volume Auto (B ld) [Entitic vol]Ordered By: Hudson De Leon on 10-15-2022 Platelet mean volume (Bld) [Entitic vol] 9.1 fL 6.6-10.1 [facility] Platelets Auto (Bld) [#/Vol] Ordered By: Hudson De Leon on 10-15-2022 Platelets (Bld) [#/Vol] 196 10*3/uL 150-450 [facility] Potassium [Moles/volume] in Serum or PlasmaOrdered By: Hudson De Leon on 10-15-2022 Potassium [Moles/Vol] 4.4 mmol/L 3.5-5.1 [facility] Protein Auto test strip (U) [Mass/Vol]Ordered By: Hudson De Leon on 10-15-2022 Protein (U) [Mass/Vol] Negative Negative [facility] Protein [Mass/volume] in Ser um or PlasmaOrdered By: Hudson De Leon on 10-15-2022 Protein [Mass/Vol] 6.9 g/dL 6.4-8.9 [facility] RBC Auto (Bld) [#/Vol]Ordere d By: Hudson De Leon on 10-15-2022 RBC (Bld) [#/Vol] 4.60 10*6/uL 3.90-5.60 [facility] Serum or plasma albumin/glob ulin mass ratioOrdered By: Hudson De Leon on 10-15-2022 Albumin/Globulin [Mass ratio] 1.5 {ratio} [facility] Serum or plasma anion gap de terminationOrdered By: Hudson De Leon on 10-15-2022 Anion gap [Moles/Vol] 9.6 mmol/L 6.0-15.0 [facility] Sodium [Moles/volume] in Ser um or PlasmaOrdered By: Hudson De Leon on 10-15-2022 Sodium [Moles/Vol] 139 mmol/L 136-145 [facility] Specific gravity Auto test s trip (U) [Rel density]Ordered By: Hudson De Leon on 10-15-2022 Specific gravity (U) [Rel density] 1.022 1.001-1.03 0 [facility] Squamous epithelial cells de tection in urine sediment by light microscopyOrdered By: Hudson De Leon on 10-15-2022 Epithelial cells.squamous LM Ql (Urine sed) None seen [HPF] 0-2 [facility] Urea nitrogen [Mass/volume] in Serum or PlasmaOrdered By: Hudson De Leon on 10-15-2022 Urea nitrogen [Mass/Vol] 24 mg/dL 7-25 [facility] Urine bacteria detection by automated methodOrdered By: Hudson De Leon on 10-15-2022 Bacteria Auto Ql (U) None seen None Seen [facility] Urine clarity by refractomet ry automatedOrdered By: Hudson De Leon on 10-15-2022 Clarity Refractometry automated (U) Clear Clear [facility] Urine glucose measurement by automated test strip (mass/volume)Ordered By: Hudson De Leon on 10-15-2022 Glucose Auto test strip (U) [Mass/Vol] Normal mg/dL Normal [facility] Urine hemoglobin detection b y automated test stripOrdered By: Hudson De Leon on 10-15-2022 Hemoglobin Auto test strip Ql (U) Negative Negative [facility] Urine leukocyte esterase det ection by automated test stripOrdered By: Hudson De Leon on 10-15-2022 Leukocyte esterase Auto test strip Ql (U) Negative Negative [facility] Urobilinogen Auto test strip (U) [Mass/Vol]Ordered By: Hudson De Leon on 10-15-2022 Urobilinogen (U) [Mass/Vol] Normal mg/dL Normal [facility] WBC Auto (Bld) [#/Vol]Ordere d By: Hudson De Leon on 10-15-2022 WBC (Bld) [#/Vol] 4.9 10*3/uL 4.1-10.5 [facility] pH Auto test strip (U)Ordere d By: Hudson De Leon on 10-15-2022 pH (U) 5.5 [pH] 5.0-9.0 [facility] Covid-19 PCR (CVDTB)on 08-23 SARS-CoV-2 (COVID-19) RNA LU+probe Ql (Unsp spec) Not detected Normal NOT DETECTED [facility] Comment on above: Result Comment: This test is not yet approved or cleared by the [place] FDA. When there are no FDA-approved or cleared tests available, and other criteria are met, FDA can make tests available under an emergency access mechanism called an Emergency Use Authorization (EUA). The EUA for this test is supported by the [place] of Health and Human Service's (HHS's) declaration [...] SARS-CoV-2. Performed By: #### I NSULIN #### [facility] [address], [place] [address] Dr. Carolyn King SYMPTOMATIC COVID-19 ANTIGEN on 09-11-2022 EUA Statement SEE BELOW Normal [facility] Comment on above: Result Comment: [...] sooner. Performed By: #### C VDAGS #### [facility] [address] [place], [place] [id number] Dr. Carolyn King SARS-CoV-2 (COVID-19) RNA LU+probe Ql (Unsp spec) Negative Normal NEGATIVE [facility] Comment on above: Performed By: #### C VDAGS #### [facility] [address] [place], [place] [id number] Dr. Carolyn King CT FOOT RT WO [...] by: LAURY ZEPEDA Date: 2022-08-31 08:09 Normal [facility] US SINGLE QUAD RT UPPERon US [...] by: LAURY ZEPEDA Date: 2022-08-31 07:41 Normal [facility] POINT OF CARE GLUCOSEon 05-24 Glucose [Mass/Vol] 125 mg/dL Critically high 74-106 [facility] Comment on above: Performed By: #### I NSULIN #### [facility] [address] [address] [address] Carolyn King Glucose [Mass/Vol] 105 mg/dL Normal 74-106 [facility] Comment on above: Performed By: #### I NSULIN #### [facility] [address] [address] [address] Carolyn King XR FOOT RT 2Von [...] BANDAR SAENZ Date: 2022-06-07 14:29 Normal [facility] Covid-19 PCR (CVDTBH)on 05-24 SARS-CoV-2 (COVID-19) RNA LU+probe Ql (Unsp spec) Not detected Normal NOT DETECTED [facility] Comment on above: Result Comment: This test is not yet approved or cleared by the [place] FDA. When there are no FDA-approved or cleared tests available, and other criteria are met, FDA can make tests available under an emergency access mechanism called an Emergency Use Authorization (EUA). The EUA for this test is supported by the [place] of Health and Human Service's (HHS's) declaration [...] SARS-CoV-2. Performed By: #### I NSULIN #### [facility] [address] [place] [address] Dr. Carolyn King Albumin [Mass/volume] in Ser um or PlasmaOrdered By: Hudson De Leon on 05-23-2022 Albumin [Mass/Vol] 3.9 g/dL 3.2-5.5 [facility] Automated erythrocytes count in urine sediment (number/area)Ordered By: Hudson De Leon on 05-23-2022 RBC Auto (Urine sed) [#/Area] None seen [HPF] 0-4 [facility] Automated leukocytes count i n urine sediment (number/area)Ordered By: Hudson De Leon on 05-23-2022 WBC Auto (Urine sed) [#/Area] None seen [HPF] 0-4 [facility] Basophils Auto (Bld) [#/Vol] Ordered By: Hudson De Leon on 05-23-2022 Basophils (Bld) [#/Vol] 0.0 10*3/uL 0.0-0.2 [facility] Basophils/100 WBC Auto (Bld) Ordered By: Hudson De Leon on 05-23-2022 Basophils/100 WBC (Bld) 0.6 % . [facility] Bilirubin Test strip Ql (U)O rdered By: Hudson De Leon on 05-23-2022 Bilirubin Ql (U) Negative Negative [facility] Color Auto (U)Ordered By: Jessica De Leon on 05-23-2022 Color (U) Yellow Yellow [facility] Creatinine and Glomerular fi ltration rate.predicted panel (S/P/Bld)Ordered By: Hudson De Leon on 05-23-2022 Creatinine [Mass/Vol] 0.92 mg/dL 0.64-1.27 [facility] Eosinophils Auto (Bld) [#/Vo l]Ordered By: uHdson De Leon on 05-23-2022 Eosinophils (Bld) [#/Vol] 0.0 10*3/uL 0.0-0.45 [facility] Eosinophils/100 WBC Auto (Bl d)Ordered By: Hudson De Leon on 05-23-2022 Eosinophils/100 WBC (Bld) 0.9 % . [facility] Erythrocyte distribution wid th Auto (RBC) [Ratio]Ordered By: Hudson De Leon on 05-23-2022 Erythrocyte distribution width (RBC) [Ratio] 13.4 % 12.0-14.8 [facility] Erythrocyte sedimentation ra te by Photometric methodOrdered By: Hudson De Leon on 05-23-2022 ESR Photometric method (Bld) [Velocity] 6 mm/hr 0-19 [facility] Estimated glomerular filtrat ion rate (GFR) non- AmericanOrdered By: Hudson De Leon on 05-23-2022 GFR/1.73 sq M.predicted among non-blacks MDRD (S/P/Bld) [Vol rate/Area] > 60 mL/Min [facility] Globulin Calc (S) [Mass/Vol] Ordered By: Hudson De Leon on 05-23-2022 Globulin (S) [Mass/Vol] 2.8 g/dL [facility] Hematocrit Auto (Bld) [Volum e fraction]Ordered By: Hudson De Leon on 05-23-2022 Hematocrit (Bld) [Volume fraction] 44.5 % 38.8-50.0 [facility] Hemoglobin [Mass/volume] in BloodOrdered By: Hudson De Leon on 05-23-2022 Hemoglobin (Bld) [Mass/Vol] 14.9 g/dL 13.0-17.0 [facility] Ketones Auto test strip (U) [Mass/Vol]Ordered By: Hudson De Leon on 05-23-2022 Ketones (U) [Mass/Vol] Negative Negative Fi [facility] - UrinalysisOrder ed By: Hudson De Leon on 05-23-2022 Hyaline casts LM Ql (Urine sed) None seen [LPF] 0-8 [facility] Leukocytes [#/volume] correc leah for nucleated erythrocytes in Blood by Automated counOrdered By: Hudson De Leon on 05-23-2022 WBC corrected for nucl RBC Auto (Bld) [#/Vol] 5.2 10*3/uL 4.1-10.5 [facility] Lymphocytes Auto (Bld) [#/Vo l]Ordered By: Hudson De Leon on 05-23-2022 Lymphocytes (Bld) [#/Vol] 1.1 10*3/uL 1.00-4.8 [facility] Lymphocytes/100 WBC Auto (Bl d)Ordered By: Hudson De Leon on 05-23-2022 Lymphocytes/100 WBC (Bld) 21.1 % . [facility] MCH Auto (RBC) [Entitic mass ]Ordered By: Hudson De Leon on 05-23-2022 MCH (RBC) [Entitic mass] 31.2 pg 27.5-35.2 [facility] MCHC Auto (RBC) [Mass/Vol]Or dered By: Hudson De Leon on 05-23-2022 MCHC (RBC) [Mass/Vol] 33.5 g/dL 32.5-35.6 [facility] MCV Auto (RBC) [Entitic vol] Ordered By: Hudson De Leon on 05-23-2022 MCV (RBC) [Entitic vol] 93.3 fL 83.5-101 [facility] Monocytes Auto (Bld) [#/Vol] Ordered By: Hudson De Leon on 05-23-2022 Monocytes (Bld) [#/Vol] 0.5 10*3/uL 0.0-0.8 [facility] Monocytes/100 WBC Auto (Bld) Ordered By: Hudson De Leon on 05-23-2022 Monocytes/100 WBC (Bld) 10.3 % . [facility] Neutrophils Auto (Bld) [#/Vo l]Ordered By: Hudson De Leon on 05-23-2022 Neutrophils (Bld) [#/Vol] 3.5 10*3/uL 1.8-7.7 [facility] Neutrophils/100 WBC Auto (Bl d)Ordered By: Hudson De Leon on 05-23-2022 Neutrophils/100 WBC (Bld) 67.1 % . [facility] Nitrite Test strip Ql (U)Ord ered By: Hudson De Leon on 05-23-2022 Nitrite Ql (U) Negative Negative [facility] No Panel InformationOrdered By: Hudson De Leon on 05-23-2022 Estimated GFR () > 60 mL/Min [facility] Comment on above: GFR estimated refere nce range: According to KDOQI guidelines, <60 ml/min/1.73m2 is sufficient to diagnose a patient with chronic kidney disease. Pharmacy Creatinine Clearance (Chem N/A [facility] Nucleated erythrocytes [Pres ence] in Blood by Automated countOrdered By: Hudson De Leon on 05-23-2022 Nucleated RBC Auto Ql (Bld) 0.2 /100{WBC} 0-0.5 [facility] Platelet mean volume Auto (B ld) [Entitic vol]Ordered By: Hudson De Leon on 05-23-2022 Platelet mean volume (Bld) [Entitic vol] 9.4 fL 6.6-10.1 [facility] Platelets Auto (Bld) [#/Vol] Ordered By: Hudson De Leon on 05-23-2022 Platelets (Bld) [#/Vol] 234 10*3/uL 150-450 [facility] Protein Auto test strip (U) [Mass/Vol]Ordered By: Hudson De Leon on 05-23-2022 Protein (U) [Mass/Vol] Negative Negative [facility] Protein [Mass/volume] in Ser um or PlasmaOrdered By: Hudson De Leon on 05-23-2022 Protein [Mass/Vol] 6.7 g/dL 6.1-7.9 [facility] RBC Auto (Bld) [#/Vol]Ordere d By: Hudson De Leon on 05-23-2022 RBC (Bld) [#/Vol] 4.77 10*6/uL 3.90-5.60 [facility] Serum or plasma alanine gates otransferase measurement without P-5'-P (enzymatic activiOrdered By: Hudson De Leon on 05-23-2022 ALT No additional P-5'-P [Catalytic activity/Vol] 27 U/L [facility] Serum or plasma albumin/glob ulin mass ratioOrdered By: Hudson De Leon on 05-23-2022 Albumin/Globulin [Mass ratio] 1.4 {ratio} [facility] Serum or plasma alkaline amanda sphatase measurement (enzymatic activity/volume)Ordered By: Hudson De Leon on 05-23-2022 ALP [Catalytic activity/Vol] 90 U/L 32-92 [facility] Serum or plasma anion gap de terminationOrdered By: Hudson De Leon on 05-23-2022 Anion gap [Moles/Vol] 12.3 mmol/L 6.0-15.0 [facility] Serum or plasma aspartate am inotransferase measurement (enzymatic activity/volume)Ordered By: Hudson De Leon on 05-23-2022 AST [Catalytic activity/Vol] 31 U/L [facility] Serum or plasma calcium karl urement (mass/volume)Ordered By: Hudson De Leon on 05-23-2022 Calcium [Mass/Vol] 9.1 mg/dL 8.2-10.2 [facility] Serum or plasma chloride reba surement (moles/volume)Ordered By: Hudson De Leon on 05-23-2022 Chloride [Moles/Vol] 102 mmol/L 95-114 [facility] Serum or plasma glucose karl urement (mass/volume)Ordered By: Hudson De Leon on 05-23-2022 Glucose [Mass/Vol] 75 mg/dL 70-100 [facility] Comment on above: ADA recommended refe rence rangeRandom Glucose Reference Range is dependent on time and content of last meal. Glucose of more than 200 mg/dL in a nonstressed, ambulatory subject supports the diagnosis of Diabetes Mellitus. Serum or plasma potassium me asurement (moles/volume)Ordered By: Hudson De Leon on 05-23-2022 Potassium [Moles/Vol] 4.0 mmol/L 3.5-5.1 [facility] Serum or plasma sodium measu rement (moles/volume)Ordered By: Hudson De Leon on 05-23-2022 Sodium [Moles/Vol] 137 mmol/L 136-146 [facility] Serum or plasma total biliru bin measurement (mass/volume)Ordered By: Hudson De Leon on 05-23-2022 Bilirubin [Mass/Vol] 0.6 mg/dL 0.3-1.2 [facility] Serum or plasma total carbon dioxide measurement (moles/volume)Ordered By: Hudson De Leon on 05-23-2022 CO2 [Moles/Vol] 26.7 mmol/L 22.0-30.0 [facility] Serum or plasma urea nitroge n measurement (mass/volume)Ordered By: Hudson De Leon on 05-23-2022 Urea nitrogen [Mass/Vol] 11 mg/dL 9-23 [facility] Specific gravity Auto test s trip (U) [Rel density]Ordered By: Hudson De Leon on 05-23-2022 Specific gravity (U) [Rel density] 1.014 1.001-1.03 0 [facility] Squamous epithelial cells de tection in urine sediment by light microscopyOrdered By: Hudson De Leon on 05-23-2022 Epithelial cells.squamous LM Ql (Urine sed) None seen [HPF] 0-2 [facility] Urine bacteria detection by automated methodOrdered By: Hudson De Leon on 05-23-2022 Bacteria Auto Ql (U) None seen None Seen [facility] Urine clarity by refractomet ry automatedOrdered By: Hudson De Leon on 05-23-2022 Clarity Refractometry automated (U) Clear Clear [facility] Urine glucose measurement by automated test strip (mass/volume)Ordered By: Hudson De Leon on 05-23-2022 Glucose Auto test strip (U) [Mass/Vol] Normal mg/dL Normal [facility] Urine hemoglobin detection b y automated test stripOrdered By: Hudson De Leon on 05-23-2022 Hemoglobin Auto test strip Ql (U) Negative Negative [facility] Urine leukocyte esterase det ection by automated test stripOrdered By: Hudson De Leon on 05-23-2022 Leukocyte esterase Auto test strip Ql (U) Negative Negative [facility] Urobilinogen Auto test strip (U) [Mass/Vol]Ordered By: Hudson De Leon on 05-23-2022 Urobilinogen (U) [Mass/Vol] Normal mg/dL Normal [facility] WBC Auto (Bld) [#/Vol]Ordere d By: Hudson De Leon on 05-23-2022 WBC (Bld) [#/Vol] 5.2 10*3/uL 4.1-10.5 [facility] pH Auto test strip (U)Ordere d By: Hudson De Leon on 05-23-2022 pH (U) 5.5 [pH] 5.0-9.0 [facility] BN SPINE, CERVICAL, 2 OR 3 V IEWSon 05-02-2022 BN SPINE, CERVICAL, 2 OR 3 VIEWS Patient Name: JAY CARR STUDY: SPINE, CERVICAL, 2 OR 3 VIEWS; 05/02/2022 9:46 am INDICATION: cervical post op 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 COMPARISON: 08/03/2021 ACCESSION NUMBER(S): [id number] ORDERING CLINICIAN: KENTON LAWSON FINDINGS: Two views of the cervical spine. Patient is status post anterior cervical discectomy and fusion from C5-C7. No hardware complication. No acute fracture. No focal subluxation. Mild multilevel degenerative changes. IMPRESSION: Postsurgical changes status post ACDF from C5-C7. No hardware complication. Mild multilevel spondylosis. Electronically signed by: FRANCISCO FOLEY MD Normal [facility] BN SPINE, LUMBOSACRAL; 2 OR 3 VIEWSon 05-02-2022 BN SPINE, LUMBOSACRAL; 2 OR 3 VIEWS Patient Name: JAY CARR STUDY: SPINE, LUMBOSACRAL; 2 OR 3 VIEWS; 05/02/2022 9:46 am INDICATION: AP/LAT M54.50: Lumbar back pain M48.062: Lumbar stenosis with neurogenic claudication. COMPARISON: 01/29/2022 ACCESSION NUMBER(S): [id number] ORDERING CLINICIAN: KENTON LAWSON FINDINGS: Two views [...] Electronically signed by: FRANCISCO FOLEY MD Normal [facility] Established Visit (Orthopaed ic Surgery)on 05-02-2022 [...] Present Illness Jay is a pleasant 62-year-old ermti-obpw-mtuhnvwn male who presents today with his for [...] by phys (more content not included)... Normal [facility] 05-02-2022 XR Cervical spine 3 Views Normal [facility] DO Work Phone: XR Lumbar spine AP and Lateral Normal [facility] DO Work Phone: INSULINon 03-29-2022 Insulin 14.5 uIU/mL Normal 2.6-24.9 [facility] Comment on above: Performed By: #### I NSULIN #### [facility] [address] [address] [address] Carolyn King CBC AUTO DIFFon 03-28-2022 BASO # 0.0 103/ul Normal 0.0-0.1 [facility] Comment on above: Performed By: #### C BC #### [facility] [address] [place] [address] Dr. Carolyn King Basophils/100 WBC (Bld) 0.6 % Normal 0.2-2.0 [facility] Comment on above: Performed By: #### C BC #### [facility] [address] [place] [address] Dr. Carolyn King EO # 0.1 103/ul Normal 0.0-0.7 [facility] Comment on above: Performed By: #### C BC #### [facility] [address] [place] [address] Dr. Carolyn King Eosinophils/100 WBC (Bld) 1.6 % Normal 0.9-7.0 [facility] Comment on above: Performed By: #### C BC #### [facility] [address] [place] [address] Dr. Carolyn King Erythrocyte distribution width (RBC) [Ratio] 13.2 % Normal 11.0-15.0 [facility] Comment on above: Performed By: #### C BC #### [facility] [address] [place] [address] Dr. Carolyn King Hematocrit (Bld) [Volume fraction] 44.5 % Normal 42.0-54.0 [facility] Comment on above: Performed By: #### C BC #### [facility] [address] [place] [address] Dr. Carolyn King Hemoglobin (Bld) [Mass/Vol] 15.0 g/dL Normal 14.0-18.0 [facility] Comment on above: Performed By: #### C BC #### [facility] [address] [place] [address] Dr. Carolyn King IG # 0.01 10e3/ul Normal 0.00-0.03 [facility] Comment on above: Performed By: #### C BC #### [facility] [address] [place] [address] Dr. Carolyn King IG % 0.2 % Normal 0.0-0.5 [facility] Comment on above: Performed By: #### C BC #### [facility] [address] [address] [address] Carolyn King LYMPH # 1.0 103/ul Critically low 1.2-3.8 [facility] Comment on above: Performed By: #### C BC #### [facility] [address] [address] [address] Carolyn King Lymphocytes/100 WBC (Bld) 15.8 % Critically low 20.5-60.0 [facility] Comment on above: Performed By: #### C BC #### [facility] [address] [place] [address] Dr. Carolyn King MANUAL DIFF REQ NO Normal [facility] Comment on above: Performed By: #### C BC #### [facility] [address] [place] [address] Dr. Carolyn King MCH (RBC) [Entitic mass] 31.1 pg Normal 25.9-34.0 [facility] Comment on above: Performed By: #### C BC #### [facility] [address] [place] [address] Dr. Carolyn King MCHC (RBC) [Mass/Vol] 33.7 g/dL Normal 29.9-35.2 [facility] Comment on above: Performed By: #### C BC #### [facility] [address] [place] [address] Dr. Carolyn King MCV (RBC) [Entitic vol] 92.3 fL Normal 80.0-94.0 [facility] Comment on above: Performed By: #### C BC #### [facility] [address] [place] [address] Dr. Carolyn King MONO # 0.7 103/ul Normal 0.3-0.8 [facility] Comment on above: Performed By: #### C BC #### [facility] [address] [place] [address] Dr. Carolyn King Monocytes/100 WBC (Bld) 10.7 % Normal 1.7-12.0 [facility] Comment on above: Performed By: #### C BC #### [facility] [address] [address] [address] Carolyn King NEUT # 4.4 103/ul Normal 1.4-6.5 [facility] Comment on above: Performed By: #### C BC #### [facility] [address] [address] [address] Carolyn King Neutrophils/100 WBC (Bld) 71.1 % Normal 43.0-75.0 [facility] Comment on above: Performed By: #### C BC #### [facility] [address] [place] [address] Dr. Carolyn King Platelet mean volume (Bld) [Entitic vol] 10.2 fL Normal 9.5-13.5 [facility] Comment on above: Performed By: #### C BC #### [facility] [address] [place] [address] Dr. Carolyn King PLT 242 103/ul Normal 150-450 [facility] Comment on above: Performed By: #### C BC #### [facility] [address] [place] [address] Dr. Carolyn King RBC 4.82 106/ul Normal 4.70-6.10 [facility] Comment on above: Performed By: #### C BC #### [facility] [address] [place] [address] Dr. Carolyn King WBC 6.2 103/ul Normal 4.0-11.0 [facility] Comment on above: Performed By: #### C BC #### [facility] [address] [place] [address] Dr. Carolyn King FREE THYROXINE INDEX T7on FTI 2.55 Normal 1.30-4.50 [facility] Comment on above: Performed By: #### U ALLEN, TSH, T7, LIPID, CMP #### [facility] [address] [place] [address] Dr. Carolyn King T3U 30.0 % Critically low 33.0-40.0 [facility] Comment on above: Performed By: #### U ALLEN, TSH, T7, LIPID, CMP #### [facility] [address] [address] [address] Carolyn King T4 [Mass/Vol] 8.50 ug/dL Normal 4.50-12.10 [facility] Comment on above: Performed By: #### U ALLEN, TSH, T7, LIPID, CMP #### [facility] [address] [address] [address] Carolyn King GLYCOHEMOGLOBIN A1Con 2021 ADA RECOMMENDATION SEE BELOW Normal [facility] Comment on above: Result Comment: ADA RECOMMENDED LIMIT 4.0 - 6.0 ADA THERAPEUTIC TARGET < 7.0 ACTION SUGGESTED > 7.0 Performed By: #### A 1C #### [facility] [address] [place] [address] Dr. Carolyn King Glucose [Mass/Vol] 103 mg/dL Normal 74-106 [facility] Comment on above: Performed By: #### A 1C #### [facility] [address] [place] [address] Dr. Carolyn King Performed By: #### U ALLEN, TSH, T7, LIPID, CMP #### [facility] [address] [place] [address] Dr. Carolyn King HbA1c (Bld) [Mass fraction] 5.2 % Normal 4.5-6.2 [facility] Comment on above: Performed By: #### A 1C #### [facility] [address] [place] [address] Dr. Carolyn King LIPID PROFILEon 03-28-2022 CHOL-HDL RATIO NORM SEE BELOW Normal [facility] Comment on above: Result Comment: 3.3 - 4.4 LOW RISK 4.4 - 7.1 AVERAGE RISK 7.1 - 11.0 MODERATE RISK >11.0 HIGH RISK Performed By: #### U ALLEN, TSH, T7, LIPID, CMP #### [facility] [address] [place] [address] Dr. Carolyn King Cholesterol [Mass/Vol] 157 mg/dL Normal <=200 [facility] Comment on above: Performed By: #### U ALLEN, TSH, T7, LIPID, CMP #### [facility] [address] [address] [address] Carolyn King Cholesterol in HDL [Mass/Vol] 49 mg/dL Normal 40-60 [facility] Comment on above: Performed By: #### U ALLEN, TSH, T7, LIPID, CMP #### [facility] [address] [address] [address] Carolyn King Cholesterol in LDL [Mass/Vol] 85.6 mg/dL Normal [facility] Comment on above: Performed By: #### U ALLEN, TSH, T7, LIPID, CMP #### [facility] [address] [address] [address] Carolyn King Cholesterol.total/Chol esterol in HDL [Mass ratio] 3.2 {ratio} Normal [facility] Comment on above: Performed By: #### U ALLEN, TSH, T7, LIPID, CMP #### [facility] [address] [address] [address] Carolyn King HDL NORMAL > or = 60 mg/dl - LO W CARDIOVASCULAR RISK <40 mg/dl - HIGH CARDIOVASCULAR RISK Normal [facility] Comment on above: Performed By: #### U ALLEN, TSH, T7, LIPID, CMP #### [facility] [address] [address] [address] Carolyn King LDL CALC NORMAL SEE BELOW Normal [facility] Comment on above: Result Comment: <100 mg/dl OPTIMAL 100 - 129 mg/dl NEAR OR ABOVE OPTIMAL 130 - 159 mg/dl BORDERLINE HIGH 160 - 189 mg/dl HIGH >190 mg/dl VERY HIGH Performed By: #### U ALLEN, TSH, T7, LIPID, CMP #### [facility] [address] [address] [address] Carolyn King Triglyceride [Mass/Vol] 112 mg/dL Normal <=150 [facility] Comment on above: Performed By: #### U ALLEN, TSH, T7, LIPID, CMP #### [facility] [address] [address] [address] Carolyn King VLDL CALC 22.4 mg/dL Normal [facility] Comment on above: Performed By: #### U ALLEN, TSH, T7, LIPID, CMP #### [facility] [address] [place] [address] Dr. Carolyn King PROF 14(COMP METB)on 022 Albumin [Mass/Vol] 3.9 g/dL Normal 3.4-5.0 [facility] Comment on above: Performed By: #### U ALLEN, TSH, T7, LIPID, CMP #### [facility] [address] [place] [address] Dr. Carolyn King Albumin/Globulin [Mass ratio] 1.1 {ratio} Normal [facility] Comment on above: Performed By: #### U ALLEN, TSH, T7, LIPID, CMP #### [facility] [address] [place] [address] Dr. Carolyn King ALP [Catalytic activity/Vol] 108 U/L Normal 46-116 [facility] Comment on above: Performed By: #### U ALLEN, TSH, T7, LIPID, CMP #### [facility] [address] [place] [address] Dr. Carolyn King ALT [Catalytic activity/Vol] 28 U/L Normal 16-63 [facility] Comment on above: Performed By: #### U ALLNE, TSH, T7, LIPID, CMP #### [facility] [address] [place] [address] Dr. Carolyn King Anion gap [Moles/Vol] 6.6 mmol/L Normal [facility] Comment on above: Performed By: #### U ALLEN, TSH, T7, LIPID, CMP #### [facility] [address] [place] [address] Dr. Carolyn King AST [Catalytic activity/Vol] 22 U/L Normal 15-37 [facility] Comment on above: Performed By: #### U ALLEN, TSH, T7, LIPID, CMP #### [facility] [address] [place] [address] Dr. Carolyn King Bilirubin [Mass/Vol] 0.6 mg/dL Normal 0.2-1.0 [facility] Comment on above: Performed By: #### U ALLEN, TSH, T7, LIPID, CMP #### [facility] [address] [address] [address] Carolyn King Calcium [Mass/Vol] 8.7 mg/dL Normal 8.5-10.1 [facility] Comment on above: Performed By: #### U ALLEN, TSH, T7, LIPID, CMP #### [facility] [address] [address] [address] Carolyn King Chloride [Moles/Vol] 105 mmol/L Normal 98-107 [facility] Comment on above: Performed By: #### U ALLEN, TSH, T7, LIPID, CMP #### [facility] [address] [address] [address] Carolyn King CO2 [Moles/Vol] 30.6 mmol/L Normal 21.0-32.[address] [facility] Comment on above: Performed By: #### U ALLEN, TSH, T7, LIPID, CMP #### [facility] [address] [address] [address] Carolyn King Creatinine [Mass/Vol] 0.96 mg/dL Normal 0.70-1.30 [facility] Comment on above: Performed By: #### U ALLEN, TSH, T7, LIPID, CMP #### [facility] [address] [place] [address] Dr. Carolyn King EGFR-AF SOMALI >60 Normal >=[address] [facility] Comment on above: Performed By: #### U ALLEN, TSH, T7, LIPID, CMP #### [facility] [address] [address] [address] Carolyn King EGFR-NON AF SOMALI >60 Normal >=60 [facility] Comment on above: Performed By: #### U ALLEN, TSH, T7, LIPID, CMP #### [facility] [address] [address] [address] Carolyn King Globulin (S) [Mass/Vol] 3.5 g/dL Normal [facility] Comment on above: Performed By: #### U ALLEN, TSH, T7, LIPID, CMP #### [facility] [address] [address] [address] Carolyn King Potassium [Moles/Vol] 4.2 mmol/L Normal 3.5-5.1 [facility] Comment on above: Performed By: #### U ALLEN, TSH, T7, LIPID, CMP #### [facility] [address] [place] [address] Dr. Carolyn King Protein [Mass/Vol] 7.4 g/dL Normal 6.4-8.2 [facility] Comment on above: Performed By: #### U ALLEN, TSH, T7, LIPID, CMP #### [facility] [address] [place] [address] Dr. Carolyn King Sodium [Moles/Vol] 138 mmol/L Normal 136-145 [facility] Comment on above: Performed By: #### U ALLEN, TSH, T7, LIPID, CMP #### [facility] [address] [place] [address] Dr. Carolyn King Urea nitrogen [Mass/Vol] 16.0 mg/dL Normal 7.0-18.0 [facility] Comment on above: Performed By: #### U ALLEN, TSH, T7, LIPID, CMP #### [facility] [address] [place] [address] Dr. Carolyn King Urea nitrogen/Creatinine [Mass ratio] 16.7 mg/mg Normal [facility] Comment on above: Performed By: #### U ALLEN, TSH, T7, LIPID, CMP #### [facility] [address] [place] [address] Dr. Carolyn King TSHon 03-28-2022 TSH 1.986 uIU/mL Normal 0.358-3.74 0 [facility] Comment on above: Performed By: #### U ALLEN, TSH, T7, LIPID, CMP #### [facility] [address] [place] [address] Dr. Carolyn King URIC ACID SERUMon 03-28-2022 Urate [Mass/Vol] 5.5 mg/dL Normal 3.5-7.[address] [facility] Comment on above: Performed By: #### U ALLEN, TSH, T7, LIPID, CMP #### [facility] [address] [place] [address] Dr. Carolyn King Ammonium urate crystals dete ction in stone by infrared spectroscopyOrdered By: Shun Machado on 02-15-2022 Ammonium urate crystals Infrared spectroscopy Ql (Stone) N/A [facility] Basophils Auto (Bld) [#/Vol] Ordered By: Steve Pina on 02-15-2022 Basophils (Bld) [#/Vol] 0.0 10*3/uL 0.0-0.2 [facility] Basophils/100 WBC Auto (Bld) Ordered By: Steve Pina on 02-15-2022 Basophils/100 WBC (Bld) 0.9 % . [facility] Blood hemoglobin measurement (mass/volume)Ordered By: Steve Pina on 02-15-2022 Hemoglobin (Bld) [Mass/Vol] 14.2 g/dL 13.0-17.0 [facility] Blood leukocytes automated c ount (number/volume)Ordered By: Steve Pina on 02-15-2022 WBC (Bld) [#/Vol] 4.5 10*3/uL 4.5-11.0 [facility] Calcium bilirubinate measure mentOrdered By: Shun Machado on 02-15-2022 Calcium bilirubinate (Stone) [Mass fraction] N/A [facility] Calcium carbonate measuremen tOrdered By: Shun Machado on 02-15-2022 Calcium carbonate (Stone) [Mass fraction] N/A [facility] Calcium hydrogen phosphate d ihydrate/Total in StoneOrdered By: Shun Machado on 02-15-2022 Calcium hydrogen phosphate dihydrate (Stone) [Mass fraction] N/A [facility] Calcium oxalate dihydrate cr ystals detection in stone by infrared spectroscopyOrdered By: Shun Machado on 02-15-2022 Calcium oxalate dihydrate crystals Infrared spectroscopy Ql (Stone) 10 % . [facility] Calcium oxalate monohydrate/ Total in StoneOrdered By: Shun Machado on 02-15-2022 Calcium oxalate monohydrate (Stone) [Mass fraction] 90 % . [facility] Calcium phosphate measuremen tOrdered By: Shun Machado on 02-15-2022 Calcium phosphate (Stone) [Mass fraction] N/A [facility] Calculus analysis interpreta tion in stoneOrdered By: Shun Machado on 02-15-2022 Calculus analysis [Interp] N/A [facility] Calculus analysis [Interp] See comment . [facility] Comment on above: Physician questions regarding Calculi Analysis contact [facility] at: [phone]. Calculi report will follow via computer, mail or insole stiffener delivery. Calculus analysis with calcu iggy photography interpretation in stoneOrdered By: Shun Machado on 02-15-2022 Calculus analysis with calculus photography [Interp] See comment . [facility] Comment on above: Photograph will foll ow under a separate cover Cellular material measuremen t in stone by estimated (mass/mass)Ordered By: Shun Machado on 02-15-2022 Cellular material Est (Stone) [Mass/Mass] N/A [facility] Cholesterol/Total in StoneOr dered By: Shun Machado on 02-15-2022 Cholesterol (Stone) [Mass fraction] N/A [facility] Composition of stoneOrdered By: Shun Machado on 02-15-2022 Composition Nom (Stone) See comment . [facility] Comment on above: Percentage (Represen ts the % composition) Creatinine and Glomerular fi ltration rate.predicted panel (S/P/Bld)Ordered By: Steve Pina on 02-15-2022 Creatinine [Mass/Vol] 0.96 mg/dL 0.64-1.27 [facility] Cystine measurementOrdered B y: Shun Machado on 02-15-2022 Cystine (Unsp spec) [Moles/Vol] N/A [facility] Determination of color of ca lculusOrdered By: Shun Machado on 02-15-2022 Color (Stone) Brown . [facility] Eosinophils Auto (Bld) [#/Vo l]Ordered By: Steve Pina on 02-15-2022 Eosinophils (Bld) [#/Vol] 0.1 10*3/uL 0.0-0.45 [facility] Eosinophils/100 WBC Auto (Bl d)Ordered By: Steve Pina on 02-15-2022 Eosinophils/100 WBC (Bld) 2.7 % . [facility] Erythrocyte distribution wid th Auto (RBC) [Ratio]Ordered By: Steve Pina on 02-15-2022 Erythrocyte distribution width (RBC) [Ratio] 14.0 % 12.0-14.8 [facility] Estimated glomerular filtrat ion rate (GFR) non- AmericanOrdered By: Steve Pina on 02-15-2022 GFR/1.73 sq M.predicted among non-blacks MDRD (S/P/Bld) [Vol rate/Area] > 60 mL/Min [facility] Hematocrit Auto (Bld) [Volum e fraction]Ordered By: Steve Pina on 02-15-2022 Hematocrit (Bld) [Volume fraction] 42.2 % 38.8-50.0 [facility] Hydroxyapatite [Energy Diffe rence] in 24 hour UrineOrdered By: Shun Machado on 02-15-2022 Hydroxyapatite (24H U) [Energy diff] N/A [facility] - Hematology and Cell countsOrdered By: Steve Pina on 02-15-2022 Nucleated RBC/100 WBC (Bld) [Ratio] 0.0 % 0-0.5 [facility] Lymphocytes Auto (Bld) [#/Vo l]Ordered By: Steev Pina on 02-15-2022 Lymphocytes (Bld) [#/Vol] 1.0 10*3/uL 1.00-4.8 [facility] Lymphocytes/100 WBC Auto (Bl d)Ordered By: Steve Pina on 02-15-2022 Lymphocytes/100 WBC (Bld) 21.3 % . [facility] MCH Auto (RBC) [Entitic mass ]Ordered By: Steve Pina on 02-15-2022 MCH (RBC) [Entitic mass] 31.0 pg 27.5-35.2 [facility] MCHC Auto (RBC) [Mass/Vol]Or dered By: Steve Pina on 02-15-2022 MCHC (RBC) [Mass/Vol] 33.7 g/dL 32.5-35.6 [facility] MCV Auto (RBC) [Entitic vol] Ordered By: Steve Pina on 02-15-2022 MCV (RBC) [Entitic vol] 92.1 fL 83.5-101 [facility] Measurement of proportion of calculus composed of dried blood (mass/mass)Ordered By: Shun Machado on 02-15-2022 Blood.dried (Stone) [Mass fraction] N/A [facility] Monocytes Auto (Bld) [#/Vol] Ordered By: Steve Pina on 02-15-2022 Monocytes (Bld) [#/Vol] 0.5 10*3/uL 0.0-0.8 [facility] Monocytes/100 WBC Auto (Bld) Ordered By: Steve Pina on 02-15-2022 Monocytes/100 WBC (Bld) 10.1 % . [facility] Neutrophils Auto (Bld) [#/Vo l]Ordered By: Steve Pina on 02-15-2022 Neutrophils (Bld) [#/Vol] 3.0 10*3/uL 1.8-7.7 [facility] Neutrophils/100 WBC Auto (Bl d)Ordered By: Steve Pina on 02-15-2022 Neutrophils/100 WBC (Bld) 65.0 % . [facility] Newberyite/Total in StoneOrd ered By: Shun Machado on 02-15-2022 Newberyite (Stone) [Mass fraction] N/A [facility] No Panel InformationOrdered By: Shun Machado on 02-15-2022 Stone 2,8 Dihydroxyadenine N/A [facility] Stone Analysis Disclaimer See comment . [facility] Comment on above: This test was develo ped and its performance characteristics determined by [facility]. It has not been cleared or approved by the Food and Drug Administration. Performed at: [facility] [address] [place] [address] [place] [id number] Office Manager Receptionist: Riley Parikh PhD, Phone: [phone] [facility] Bilirubinate N/A [facility] Stone Calcium Palmitate N/A [facility] Stone Calcium Stearate N/A [facility] Stone Carbonate Apatite N/A [facility] Stone Drug or Metabolite N/A [facility] Stone Other Constituent N/A [facility] Stone Xanthine N/A [facility] No Panel InformationOrdered By: Steve Pina on 02-15-2022 Estimated GFR () > 60 mL/Min [facility] Comment on above: GFR estimated refere nce range: According to KDOQI guidelines, <60 ml/min/1.73m2 is sufficient to diagnose a patient with chronic kidney disease. Pharmacy Creatinine Clearance (Chem 93.62 [facility] Platelet mean volume Auto (B ld) [Entitic vol]Ordered By: Steve Pina on 02-15-2022 Platelet mean volume (Bld) [Entitic vol] 7.9 fL 6.6-10.1 [facility] Platelets Auto (Bld) [#/Vol] Ordered By: Steve Pina on 02-15-2022 Platelets (Bld) [#/Vol] 202 10*3/uL 150-450 [facility] RBC Auto (Bld) [#/Vol]Ordere d By: Steve Pina on 02-15-2022 RBC (Bld) [#/Vol] 4.58 10*6/uL 3.90-5.60 [facility] Serum or plasma calcium karl urement (mass/volume)Ordered By: Steve Pina on 02-15-2022 Calcium [Mass/Vol] 9.0 mg/dL 8.2-10.2 [facility] Serum or plasma chloride reba surement (moles/volume)Ordered By: Steve Pina on 02-15-2022 Chloride [Moles/Vol] 102 mmol/L 95-114 [facility] Serum or plasma glucose karl urement (mass/volume)Ordered By: Steve Pina on 02-15-2022 Glucose [Mass/Vol] 108 mg/dL 70-100 [facility] Comment on above: ADA recommended refe rence range Random Glucose Reference Range is dependent on time and content of last meal. Glucose of more than 200 mg/dL in a nonstressed, ambulatory subject supports the diagnosis of Diabetes Mellitus. Serum or plasma potassium me asurement (moles/volume)Ordered By: Steve Pina on 02-15-2022 Potassium [Moles/Vol] 3.9 mmol/L 3.5-5.1 [facility] Serum or plasma sodium measu rement (moles/volume)Ordered By: Steve Pina on 02-15-2022 Sodium [Moles/Vol] 137 mmol/L 136-146 [facility] Serum or plasma total carbon dioxide measurement (moles/volume)Ordered By: Steve Pina on 02-15-2022 CO2 [Moles/Vol] 28.0 mmol/L 22.0-30.0 [facility] Serum or plasma urea nitroge n measurement (mass/volume)Ordered By: Steve Pina on 02-15-2022 Urea nitrogen [Mass/Vol] 11 mg/dL 9- [facility] Size [Entitic volume] of Sto neOrdered By: Shun Machado on 02-15-2022 Size (Stone) [Entitic vol] 5x3 mm . [facility] Comment on above: Multiple pieces rece ived. Dimensions of the largest piece reported. Sodium urate crystals detect ion in stone by infrared spectroscopyOrdered By: Shun Machado on 02-15-2022 Sodium urate crystals Infrared spectroscopy Ql (Stone) N/A [facility] Specimen source subject [Typ e]Ordered By: Shun Machado on 02-15-2022 Specimen source subject Nom See comment . [facility] Comment on above: Right Ureter Triamterene measurement in c alculusOrdered By: Shun Machado on 02-15-2022 Triamterene (Stone) [Mass fraction] N/A [facility] Triple phosphate/Total in St oneOrdered By: Shun Machado on 02-15-2022 Triple phosphate (Stone) [Mass fraction] N/A [facility] Uric acid dihydrate crystals detection in stone by infrared spectroscopyOrdered By: Shun Machado on 02-15-2022 Urate dihydrate crystals Infrared spectroscopy Ql (Stone) N/A [facility] XR ANKLE RT MIN 3 VIEWSon [...] LAURY ZEPEDA Date: 2022-02-15 06:59 Normal [facility] COVID-19 Positive/NegativeOr dered By: Shun Machado on 02-13-2022 SARS-CoV-2 (COVID-19) N gene LU+probe Ql (Resp) Negative Negative [facility] Comment on above: Testing for SARS-CoV -2 by RT-PCR This test was developed and its performance characteristics determined by [employer] and validated at the [facility]. This test has not been FDA [...] claudication. COMPARISON: November 08, 2021 ACCESSION NUMBER(S): [id number] ORDERING CLINICIAN: KENTON LAWSON FINDINGS: Status post anterior and posterior fusion L3-L5 unchanged prior examination with disc space replacement and posterior pedicle screws. Alignment normal. Upper lumbar degenerative changes greatest at L2-3 again noted. IMPRESSION: Satisfactory and unchanged appearance status post L3-L5 fusion. Electronically signed by: JENI SNYDER MD Normal [facility] Established Visit (Orthopaed ic Surgery)on 01-29-2022 Established [...] Xray BN Spine, Lumbosacral; 2 or 3 [id number] 10:34AKenton fernández Test NameResultFlagReference Xray Lumbar Spine [...] BANDAR SAENZ Date: 2022-01-29 21:07 Normal [facility] Activated partial thrombopla stin time (aPTT) in platelet poor plasma by coagulation aOrdered By: Shun Machado on 01-17-2022 aPTT Coag (PPP) [Time] 36.3 s 25.1-36.5 [facility] COVID-19 Positive/NegativeOr dered By: Shun Machado on 01-17-2022 SARS-CoV-2 (COVID-19) N gene LU+probe Ql (Resp) Negative Negative [facility] Comment on above: Testing for SARS-CoV -2 by RT-PCR This test was developed and its performance characteristics determined by [employer]) and validated at the [facility]. This test has not been FDA [...] INR Coag (PPP) [Relative time] 1.1 {INR} [facility] Comment on above: INR Therapeutic Rang [...] BANDAR SAENZ Date: 2022-01-11 16:29 Normal [facility] CBC AUTO DIFFon 01-09-2022 BASO # 0.0 103/ul Normal 0.0-0.1 [facility] Comment on above: Performed By: #### C BC #### [facility] [address] [place] [address] Dr. Carolyn King Basophils/100 WBC (Bld) 0.4 % Normal 0.2-2.0 [facility] Comment on above: Performed By: #### C BC #### [facility] [address] [place] [address] Dr. Carolyn King EO # 0.0 103/ul Normal 0.0-0.7 [facility] Comment on above: Performed By: #### C BC #### [facility] [address] [place] [address] Dr. Carolyn King Eosinophils/100 WBC (Bld) 0.3 % Critically low 0.9-7.0 [facility] Comment on above: Performed By: #### C BC #### [facility] [address] [place] [address] Dr. Carolyn King Erythrocyte distribution width (RBC) [Ratio] 12.6 % Normal 11.0-15.0 [facility] Comment on above: Performed By: #### C BC #### [facility] [address] [place] [address] Dr. Carolyn King Hematocrit (Bld) [Volume fraction] 45.6 % Normal 42.0-54.0 [facility] Comment on above: Performed By: #### C BC #### [facility] [address] [place] [address] Dr. Carolyn King Hemoglobin (Bld) [Mass/Vol] 15.6 g/dL Normal 14.0-18.0 [facility] Comment on above: Performed By: #### C BC #### [facility] [address] [place] [address] Dr. Carolyn King IG # 0.02 10e3/ul Normal 0.00-0.03 [facility] Comment on above: Performed By: #### C BC #### [facility] [address] [place] [address] Dr. Carolyn King IG % 0.3 % Normal 0.0-0.5 [facility] Comment on above: Performed By: #### C BC #### [facility] [address] [address] [address] Carolyn King LYMPH # 0.8 103/ul Critically low 1.2-3.8 [facility] Comment on above: Performed By: #### C BC #### [facility] [address] [address] [address] Carolyn King Lymphocytes/100 WBC (Bld) 11.4 % Critically low 20.5-60.0 [facility] Comment on above: Performed By: #### C BC #### [facility] [address] [place] [address] Dr. Carolyn King MANUAL DIFF REQ NO Normal [facility] Comment on above: Performed By: #### C BC #### [facility] [address] [place] [address] Dr. Carolyn King MCH (RBC) [Entitic mass] 30.8 pg Normal 25.9-34.0 [facility] Comment on above: Performed By: #### C BC #### [facility] [address] [place] [address] Dr. Carolyn King MCHC (RBC) [Mass/Vol] 34.2 g/dL Normal 29.9-35.2 [facility] Comment on above: Performed By: #### C BC #### [facility] [address] [place] [address] Dr. Carolyn King MCV (RBC) [Entitic vol] 89.9 fL Normal 80.0-94.0 [facility] Comment on above: Performed By: #### C BC #### [facility] [address] [place] [address] Dr. Carolyn King MONO # 0.6 103/ul Normal 0.3-0.8 [facility] Comment on above: Performed By: #### C BC #### [facility] [address] [place] [address] Dr. Carolyn King Monocytes/100 WBC (Bld) 8.5 % Normal 1.7-12.0 [facility] Comment on above: Performed By: #### C BC #### [facility] [address] [address] [address] Carolyn King NEUT # 5.8 103/ul Normal 1.4-6.5 [facility] Comment on above: Performed By: #### C BC #### [facility] [address] [place] [address] Dr. Carolyn King Neutrophils/100 WBC (Bld) 79.1 % Critically high 43.0-75.0 [facility] Comment on above: Performed By: #### C BC #### [facility] [address] [place] [address] Dr. Carolyn King Platelet mean volume (Bld) [Entitic vol] 10.7 fL Normal 9.5-13.5 [facility] Comment on above: Performed By: #### C BC #### [facility] [address] [place] [address] Dr. Carolyn King PLT 235 103/ul Normal 150-450 [facility] Comment on above: Performed By: #### C BC #### [facility] [address] [place] [address] Dr. Carolyn King RBC 5.07 106/ul Normal 4.70-6.10 [facility] Comment on above: Performed By: #### C BC #### [facility] [address] [place] [address] Dr. Carolyn King WBC 7.4 103/ul Normal 4.0-11.0 [facility] Comment on above: Performed By: #### C BC #### [facility] [address] [place] [address] ABD/PELVIS WO CONon [...] LAURY ZEPEDA Date: 2022-01-09 13:38 Normal [facility] ER URINE PROFILEon 2 Bilirubin Ql (U) Negative Normal NEGATIVE [facility] Comment on above: Performed By: #### I NSULIN #### [facility] [address] [address] [address] Carolyn King Clarity (U) CLEAR Normal CLEAR [facility] Comment on above: Performed By: #### I NSULIN #### [facility] [address] [address] [address] Carolyn King Color (U) LT. YELLOW Normal YELLOW [facility] Comment on above: Performed By: #### I NSULIN #### [facility] [address] [address] [address] Carolyn King ERUAHD A micrscopic examina tion will be performed if indicated. Normal [facility] Comment on above: Performed By: #### I NSULIN #### [facility] [address] [address] [address] Carolyn King Glucose Ql (U) Negative Normal NEGATIVE [facility] Comment on above: Performed By: #### I NSULIN #### [facility] [address] [place] [address] Dr. Carolyn King Hemoglobin Ql (U) MODERATE Abnormal NEGATIVE [facility] Comment on above: Performed By: #### I NSULIN #### [facility] [address] [address] [address] Carolyn King Ketones Ql (U) Negative Normal NEGATIVE [facility] Comment on above: Performed By: #### I NSULIN #### [facility] [address] [place] [address] Dr. Carolyn King LEUKOCYTES Negative Normal NEGATIVE [facility] Comment on above: Performed By: #### I NSULIN #### [facility] [address] [place] [address] Dr. Carolyn King Nitrite Ql (U) Negative Normal NEGATIVE [facility] Comment on above: Performed By: #### I NSULIN #### [facility] [address] [place] [address] Dr. Carolyn King pH (U) 6.0 [pH] Normal 5-9 [facility] Comment on above: Performed By: #### I NSULIN #### [facility] [address] [place] [address] Dr. Carolyn King SPEC GRAVITY 1.010 Normal 1.005-<=1. 025 [facility] Comment on above: Performed By: #### I NSULIN #### [facility] [address] [address] [address] Carolyn King UA PROTEIN Negative Normal NEGATIVE/ TRACE [facility] Comment on above: Performed By: #### I NSULIN #### [facility] [address] [place] [address] Dr. Carolyn King UR MICRO IND INDICATED Normal [facility] Comment on above: Performed By: #### I NSULIN #### [facility] [address] [place] [address] Dr. Carolyn King Urobilinogen Qn (U) 0.2 {Keren'U}/dL Normal 0.2 - 1. 0 [facility] Comment on above: Performed By: #### I NSULIN #### [facility] [address] [place] [address] Dr. Carolyn King LIPASEon 01-09-2022 Lipase [Catalytic activity/Vol] 98.0 U/L Normal 73.0-393.0 [facility] Comment on above: Performed By: #### I NSULIN #### [facility] [address] [place] [address] Dr. Carolyn King PROF 14(COMP METB)on 022 Albumin [Mass/Vol] 4.0 g/dL Normal 3.4-5.0 [facility] Comment on above: Performed By: #### I NSULIN #### [facility] [address] [place] [address] Dr. Carolyn King Albumin/Globulin [Mass ratio] 1.1 {ratio} Normal [facility] Comment on above: Performed By: #### I NSULIN #### [facility] [address] [place] [address] Dr. Carolyn King ALP [Catalytic activity/Vol] 112 U/L Normal 46-116 [facility] Comment on above: Performed By: #### I NSULIN #### [facility] [address] [place] [address] Dr. Carolyn King ALT [Catalytic activity/Vol] 27 U/L Normal 16-63 [facility] Comment on above: Performed By: #### I NSULIN #### [facility] [address] [place] [address] Dr. Carolyn King Anion gap [Moles/Vol] 14.9 mmol/L Normal [facility] Comment on above: Performed By: #### I NSULIN #### [facility] [address] [place] [address] Dr. Carolyn King AST [Catalytic activity/Vol] 22 U/L Normal 15-37 [facility] Comment on above: Performed By: #### I NSULIN #### [facility] [address] [address] [address] Carolyn King Bilirubin [Mass/Vol] 0.5 mg/dL Normal 0.2-1.0 [facility] Comment on above: Performed By: #### I NSULIN #### [facility] [address] [address] [address] Carolyn King Calcium [Mass/Vol] 9.1 mg/dL Normal 8.5-10.1 [facility] Comment on above: Performed By: #### I NSULIN #### [facility] [address] [address] [address] Carolyn King Chloride [Moles/Vol] 103 mmol/L Normal 98-107 [facility] Comment on above: Performed By: #### I NSULIN #### [facility] [address] [place] [address] Dr. Carolyn King CO2 [Moles/Vol] 26.0 mmol/L Normal 21.0-32.[address] [facility] Comment on above: Performed By: #### I NSULIN #### [facility] [address] [place] [address] Dr. Carolyn King Creatinine [Mass/Vol] 1.09 mg/dL Normal 0.70-1.30 [facility] Comment on above: Performed By: #### I NSULIN #### [facility] [address] [place] [address] Dr. Carolyn King EGFR-AF SOMALI >60 Normal >=60 [facility] Comment on above: Performed By: #### I NSULIN #### [facility] [address] [address] [address] Carolyn King EGFR-NON AF SOMALI >60 Normal >=60 [facility] Comment on above: Performed By: #### I NSULIN #### [facility] [address] [place] [address] Dr. Carolyn King Globulin (S) [Mass/Vol] 3.8 g/dL Normal [facility] Comment on above: Performed By: #### I NSULIN #### [facility] [address] [address] [address] Carolyn King Glucose [Mass/Vol] 97 mg/dL Normal 74-106 [facility] Comment on above: Performed By: #### I NSULIN #### [facility] [address] [address] [address] Carolyn King Potassium [Moles/Vol] 3.9 mmol/L Normal 3.5-5.1 [facility] Comment on above: Performed By: #### I NSULIN #### [facility] [address] [address] [address] Carolyn King Protein [Mass/Vol] 7.8 g/dL Normal 6.4-8.2 [facility] Comment on above: Performed By: #### I NSULIN #### [facility] [address] [place] [address] Dr. Carolyn King Sodium [Moles/Vol] 140 mmol/L Normal 136-145 [facility] Comment on above: Performed By: #### I NSULIN #### [facility] [address] [place] [address] Dr. Carolyn King Urea nitrogen [Mass/Vol] 16.0 mg/dL Normal 7.0-18.0 [facility] Comment on above: Performed By: #### I NSULIN #### [facility] [address] [place] [address] Dr. Carolyn King Urea nitrogen/Creatinine [Mass ratio] 14.7 mg/mg Normal [facility] Comment on above: Performed By: #### I NSULIN #### [facility] [address] [address] [address] Carolyn King URINE MICROSCOPIC ONLYon BACTERIA NONE SEEN Normal NONE SEEN [facility] Comment on above: Performed By: #### I NSULIN #### [facility] [address] [place] [address] Dr. Carolyn King Bacteria identified Cx Nom (U) NOT INDICATED Normal [facility] Comment on above: Performed By: #### I NSULIN #### [facility] [address] [place] [address] Dr. Carolyn King CAST NONE SEEN Normal NONE SEEN [facility] Comment on above: Performed By: #### I NSULIN #### [facility] [address] [place] [address] Dr. Carolyn King Crystals LM Nom (Urine sed) NONE SEEN Normal NONE SEEN [facility] Comment on above: Performed By: #### I NSULIN #### [facility] [address] [place] [address] Dr. Carolyn King Epithelial cells LM Ql (Urine sed) NONE SEEN Normal NONE SEEN /RARE [facility] Comment on above: Performed By: #### I NSULIN #### [facility] [address] [place] [address] Dr. Carolyn King MUCOUS NONE SEEN Normal NONE SEEN [facility] Comment on above: Performed By: #### I NSULIN #### [facility] [address] [place] [address] Dr. Carolyn King RBC 2-5 Abnormal 0-2 [facility] Comment on above: Performed By: #### I NSULIN #### [facility] [address] [place] [address] Dr. Carolyn King WBC 0-2 Abnormal NONE SEEN [facility] Comment on above: Performed By: #### I NSULIN #### [facility] [address] [place] [address] Dr. Carolyn King US SINGLE QUAD RT [...] by: BANDAR QUEZADA Date: 2022-01-05 10:15 Normal [facility] NM HEPATOBILIARY SCAN W EFon 12-27-2021 AR HEPATOBILIARY SCAN W EF HISTORY: Right upper [...] LAURY SNYDER Date: 2021-12-27 12:16 Normal [facility] CT ABD/PELV W CONon [...] LAURY ZEPEDA Date: 2021-12-11 07:30 Normal [facility] CREATININEon 12-09-2021 Creatinine [Mass/Vol] 0.98 mg/dL Normal 0.70-1.30 [facility] Comment on above: Performed By: #### I NSULIN #### [facility] [address] [address] [address] Carolyn King EGFR-AF SOMALI >60 Normal >=60 [facility] Comment on above: Performed By: #### I NSULIN #### [facility] [address] [address] [address] Carolyn King EGFR-NON AF SOMALI >60 Normal >=60 [facility] Comment on above: Performed By: #### I NSULIN #### [facility] [address] [address] [address] Carolyn King BN SPINE, LUMBOSACRAL; 2 OR 3 VIEWSon 11-08-2021 BN SPINE, LUMBOSACRAL; 2 OR 3 VIEWS Patient Name: JAY CARR STUDY: Lumbar spine dated 11/08/2021. INDICATION: AP/LAT M54.50: Lumbar back pain M48.062: Lumbar stenosis with neurogenic claudication COMPARISON: None. ACCESSION NUMBER(S): [id number] ORDERING CLINICIAN: KENTON LAWSON TECHNIQUE: AP and [...] Electronically signed by: BATSHEVA VIDAL MD [facility] Post Op (Orthopaedic Surgery )on 11-08-2021 Post [...] Work Phone: CBCon 09-29-2021 HCT Canceled Normal [facility] Comment on above: Order Comment: TEST CBC WAS CANCELLED, 09/29/2021 08:10 NO SPECIMEN RECEIVED IN LAB. Performed By: #### C BC ####[id number] [place] [address] HGB Canceled Normal [facility] Comment on above: Order Comment: TEST CBC WAS CANCELLED, 09/29/2021 08:10 NO SPECIMEN RECEIVED IN LAB. Performed By: #### C BC ####[id number] [place] [address] MCHC Canceled Normal [facility] Comment on above: Order Comment: TEST CBC WAS CANCELLED, 09/29/2021 08:10 NO SPECIMEN RECEIVED IN LAB. Performed By: #### C BC ####[id number] [place] [address] MCV Canceled Normal [facility] Comment on above: Order Comment: TEST CBC WAS CANCELLED, 09/29/2021 08:10 NO SPECIMEN RECEIVED IN LAB. Performed By: #### C BC ####[id number] [place] [address] NUCLEATED RBC Canceled Normal [facility] Comment on above: Order Comment: TEST CBC WAS CANCELLED, 09/29/2021 08:10 NO SPECIMEN RECEIVED IN LAB. Performed By: #### C BC ####[id number] [place] [address] PLT Canceled Normal [facility] Comment on above: Order Comment: TEST CBC WAS CANCELLED, 09/29/2021 08:10 NO SPECIMEN RECEIVED IN LAB. Performed By: #### C BC ####[id number] [place] [address] RBC Canceled Normal [facility] Comment on above: Order Comment: TEST CBC WAS CANCELLED, 09/29/2021 08:10 NO SPECIMEN RECEIVED IN LAB. Performed By: #### C BC ####[id number] [place] [address] RDW-CV Canceled Normal [facility] Comment on above: Order Comment: TEST CBC WAS CANCELLED, 09/29/2021 08:10 NO SPECIMEN RECEIVED IN LAB. Performed By: #### C BC ####[id number] [place] [address] WBC Canceled Normal [facility] Comment on above: Order Comment: TEST CBC WAS CANCELLED, 09/29/2021 08:10 NO SPECIMEN RECEIVED IN LAB. Performed By: #### C BC ####[id number] [place] [address] BASIC METABOLIC PANELon ANION GAP Canceled Normal [facility] Comment on above: Order Comment: TEST BASIC METABOLIC PANEL WAS CANCELLED, 09/28/2021 04:56 Performed By: #### B MP ####[id number] [place] [address] BICARBONATE Canceled Normal [facility] Comment on above: Order Comment: TEST BASIC METABOLIC PANEL WAS CANCELLED, 09/28/2021 04:56 Performed By: #### B MP ####[id number] [place] [address] CALCIUM Canceled Normal [facility] Comment on above: Order Comment: TEST BASIC METABOLIC PANEL WAS CANCELLED, 09/28/2021 04:56 Performed By: #### B MP ####[id number] [place] [address] CHLORIDE Canceled Normal [facility] Comment on above: Order Comment: TEST BASIC METABOLIC PANEL WAS CANCELLED, 09/28/2021 04:56 Performed By: #### B MP ####[id number] [place] [address] CREATININE Canceled Normal [facility] Comment on above: Order Comment: TEST BASIC METABOLIC PANEL WAS CANCELLED, 09/28/2021 04:56 Performed By: #### B MP ####[id number] [place] [address] eGFR FEMALE Canceled Normal [facility] Comment on above: Order Comment: TEST BASIC METABOLIC PANEL WAS CANCELLED, 09/28/2021 04:56 Result Comment: CALC ULATIONS OF ESTIMATED GFR ARE PERFORMED USING THE 2020 CKD-EPI STUDY REFIT EQUATION WITHOUT THE RACE VARIABLE FOR THE IDMS-TRACEABLE CREATININE METHODS. https://jasn.asnjournals.org/content/early//ASN.98181 90686 Performed By: #### B MP ####[id number] [place] [address] eGFR MALE Canceled Normal [facility] Comment on above: Order Comment: TEST BASIC METABOLIC PANEL WAS CANCELLED, 09/28/2021 04:56 Result Comment: CALC ULATIONS OF ESTIMATED GFR ARE PERFORMED USING THE 2020 CKD-EPI STUDY REFIT EQUATION WITHOUT THE RACE VARIABLE FOR THE IDMS-TRACEABLE CREATININE METHODS. https://jasn.asnjournals.org/content//ASN.78086 55032 Performed By: #### B MP ####[id number] [place] [address] GLUCOSE Canceled Normal [facility] Comment on above: Order Comment: TEST BASIC METABOLIC PANEL WAS CANCELLED, 09/28/2021 04:56 Performed By: #### B MP ####[id number] [place] [address] POTASSIUM Canceled Normal [facility] Comment on above: Order Comment: TEST BASIC METABOLIC PANEL WAS CANCELLED, 09/28/2021 04:56 Performed By: #### B MP ####[id number] [place] [address] SODIUM Canceled Normal [facility] Comment on above: Order Comment: TEST BASIC METABOLIC PANEL WAS CANCELLED, 09/28/2021 04:56 Performed By: #### B MP ####[id number] [place] [address] UREA NITROGEN Canceled Normal [facility] Comment on above: Order Comment: TEST BASIC METABOLIC PANEL WAS CANCELLED, 09/28/2021 04:56 Performed By: #### B MP ####[id number] [place] [address] BASIC METABOLIC PANELon 04-0 Anion gap [Moles/Vol] 16 mmol/L Normal 10 - 20 [facility] Comment on above: Performed By: #### B MP #### [facility] [id number] [place] [address] Calcium [Mass/Vol] 9.0 mg/dL Normal 8.6 - 10.6 [facility] Comment on above: Performed By: #### B MP #### [facility] [address] [place] [address] Chloride [Moles/Vol] 103 mmol/L Normal 98 - 107 [facility] Comment on above: Performed By: #### B MP #### [facility] [address] [place] [address] Creatinine [Mass/Vol] 0.83 mg/dL Normal 0.50 - 1.30 [facility] Comment on above: Performed By: #### B MP #### [facility] [id number] [place] [address] eGFR MALE >90 Normal >90 [facility] Comment on above: Result Comment: CALC ULATIONS OF ESTIMATED GFR ARE PERFORMED USING THE 2020 CKD-EPI STUDY REFIT EQUATION WITHOUT THE RACE VARIABLE FOR THE IDMS-TRACEABLE CREATININE METHODS. https://jasn.asnjournals.org/content/early//ASN.22397 55211 Performed By: #### B MP #### [facility] [address] [place] [address] Glucose [Mass/Vol] 141 mg/dL High 74 - 99 [facility] Comment on above: Performed By: #### B MP #### [facility] [address] [place] [address] HCO3 (Bld) [Moles/Vol] 24 mmol/L Normal 21 - 32 [facility] Comment on above: Performed By: #### B MP #### [facility] [address] [place] [address] Potassium [Moles/Vol] 4.4 mmol/L Normal 3.5 - 5.3 [facility] Comment on above: Performed By: #### B MP #### [facility] [address] [place] [address] Sodium [Moles/Vol] 139 mmol/L Normal 136 - 145 [facility] Comment on above: Performed By: #### B MP #### [facility] [address] [place] [address] Urea nitrogen [Mass/Vol] 13 mg/dL Normal 6 - 23 [facility] Comment on above: Performed By: #### B MP #### [facility] [address] [place] [address] CBCon 09-27-2021 HCT Canceled Normal [facility] Comment on above: Order Comment: TEST URINALYSIS WAS CANCELLED, 09/19/2021 12:02 DUPLICATE ORDER. Performed By: #### U A #### [facility] [address] [place] [address] HGB Canceled Normal [facility] Comment on above: Order Comment: TEST URINALYSIS WAS CANCELLED, 09/19/2021 12:02 DUPLICATE ORDER. Performed By: #### U A #### [facility] [address] [place] [address] MCHC Canceled Normal [facility] Comment on above: Order Comment: TEST URINALYSIS WAS CANCELLED, 09/19/2021 12:02 DUPLICATE ORDER. Performed By: #### U A #### [facility] [address] [place] [address] MCV Canceled Normal [facility] Comment on above: Order Comment: TEST URINALYSIS WAS CANCELLED, 09/19/2021 12:02 DUPLICATE ORDER. Performed By: #### U A #### [facility] [address] [place] [address] NUCLEATED RBC Canceled Normal [facility] Comment on above: Order Comment: TEST URINALYSIS WAS CANCELLED, 09/19/2021 12:02 DUPLICATE ORDER. Performed By: #### U A #### [facility] [address] [place] [address] PLT Canceled Normal [facility] Comment on above: Order Comment: TEST URINALYSIS WAS CANCELLED, 09/19/2021 12:02 DUPLICATE ORDER. Performed By: #### U A #### [facility] [address] [place] [address] RBC Canceled Normal [facility] Comment on above: Order Comment: TEST URINALYSIS WAS CANCELLED, 09/19/2021 12:02 DUPLICATE ORDER. Performed By: #### U A #### [facility] [address] [place] [address] RDW-CV Canceled Normal [facility] Comment on above: Order Comment: TEST URINALYSIS WAS CANCELLED, 09/19/2021 12:02 DUPLICATE ORDER. Performed By: #### U A #### [facility] [address] [place] [address] WBC Canceled Normal [facility] Comment on above: Order Comment: TEST URINALYSIS WAS CANCELLED, 09/19/2021 12:02 DUPLICATE ORDER. Performed By: #### U A #### [facility] [address] [place] [address] Erythrocyte distribution width (RBC) [Ratio] 13.1 % Normal 11.5 - 14.5 [facility] Comment on above: Performed By: #### U A #### [facility] [address] [place] [address] Hematocrit (Bld) [Volume fraction] 41.3 % Normal 41.0 - 52.0 [facility] Comment on above: Performed By: #### U A #### [facility] [address] [place] [address] Hemoglobin (Bld) [Mass/Vol] 14.1 g/dL Normal 13.5 - 17.5 [facility] Comment on above: Performed By: #### U A #### [facility] [address] [place] [address] MCHC (RBC) [Mass/Vol] 34.1 g/dL Normal 32.0 - 36.0 [facility] Comment on above: Performed By: #### U A #### [facility] [address] [place] [address] MCV (RBC) [Entitic vol] 93 fL Normal 80 - 100 [facility] Comment on above: Performed By: #### U A #### [facility] [address] [place] [address] NUCLEATED RBC 0.0 /100 WBC Normal 0.0-0.0 [facility] Comment on above: Performed By: #### U A #### [facility] [address] [place] [address] Platelets (Bld) [#/Vol] 217 10*3/uL Normal 150 - 450 [facility] Comment on above: Performed By: #### U A #### [facility] [address] [place] [address] RBC 4.42 x10E12/L Low 4.50 - 5.90 [facility] Comment on above: Performed By: #### U A #### [facility] [address] [place] [address] WBC (Bld) [#/Vol] 13.6 10*3/uL High 4.4 - 11.3 [facility] Comment on above: Performed By: #### U A #### [facility] [address] [place] [address] Daily Progress Note-Orthopae kaison 09-27-2021 Daily Progress Note-Orthopaedics Service: Orthopaedics Subjective Data: JAY CARR is a 61 year old Male who is Hospital Day # 2 and POD #1 for 1. XLIF L3/4, 4/5;2. Navigated percutaneous PSIF L3-5. Patient resting comfortably in bed. Pain well controlled. Denies CP, SOB, F/C, N/V. No new N/T. Objective Data: Objective Information: T PRBPMAPSpO2 [id number]/7598% Date/Time09/27 5: 5: 5: 5: 5:39 Range(36.5C [...] Recent Arterial Blood Gas Results 09/26/2021 12:37 [id number] pH7.37 nKN123 WJ2084 Base Excess0.8null Assessment and Plan: Code Status: Code StatusFull Code Assessment: 61 y/o male s/p L3/4-4/5 XLIF, L3-5 perc PSIF on 09/26/[address] Richardson, doing well. 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 Orthopaedic Surgery, PGY-2 Pager: [phone] Orthopaedic Spine Team Brannon Steinberg, PGY-2 [phone] - 1st call Orquidea Akbar PGY-4 [phone] - 2nd call Available via Doc Halo After 5pm-7am, weekends, holidays please page [phone] for business development professional resident for urgent questions/concerns. Attestation: Note [...] the note. I personally evaluated the patient [id number] Electronic Signatures: Sal Richardson) (Signed 29-Sep-2021 11:37) Authored: Note Completion Co-Signer: Service, Subjective Data, Objective Data, Assessment and Plan, Note Completion Timothy Steinberg (Resident)) (Signed 27-Sep-2021 06:49) Authored: Service, Subjective Data, Objective Data, Assessment and Plan, Note Completion Last Updated: 29-Sep-2021 11:37 by Sal Richardson) Normal [facility] Order Reconciliationon 09-27 Order Reconciliation Page [...] unarousable, and respiratory rate lessClinician Notes: HOLD SOFTBALL COACH Infusion and notify H.O. immediately 26-Sep-2021 [...] at Discharge: (more content not included)... Normal [facility] PT Evaluation h2-mt-rkbttmec t - co-tx c/ OT for maximized saon 09-27-2021 PT Evaluation l8-lx-ccrpxibaf - co-tx c/ OT for maximized sa Rehab: Info: Mode of Treatmentco-treatment; physical therapy; co-tx c/ OT for maximized safety and mobility Time IN10:00 Time OUT10:27 Total Treatment Dytpdvo09 Patient in ... at end of sessionchair; alarm on Communicated with ... at end of sessionbedside nurse Patient Effortexcellent Symptoms Noted During/After Treatmentnone Patient Profile Reviewedyes Onset of Illness/Injury or Date of Rysodsv51-Xgp-2218 Reason for ReferralXLIF L3/4, 4/5;2. Navigated percutaneous [...] Mobility/Tone: Bed Mobility Assessment/Interventions supine to sit Ugdwma-hd-Ipn [place] (Bed Mobility)standby assist; 1 person assist Assistive Device (Bed Mobility)bed rails Comment, Bed MobilityPt. educated on log roll Transfer Assessment/Interventions sit to stand transfer; stand to sit transfer; bed to chair transfer Bed-Chair [place] (Transfers)1 person assist; standby assist; verbal cues Sit-Stand [place] (Transfers)standby assist; 1 person assist Sit-Stand Assistive Device (Transfers)no AD Stand-Sit [place] (Transfers)standby assist; 1 person assist Stand-Sit Assistive [...] Motor: Sitting, Static (Balance)SBA Sitting, Dynamic (Balance)SBA Hri-ja-Vbjzh (Balance)SBA Standing, Static (Balance)SBA Standing, Dynamic (Balance)SBA [...] goals Thera (more content not included)... Normal [facility] ARTERIAL FULL PANELon 2021 Anion gap [Moles/Vol] 11 mmol/L Normal 10 - 25 [facility] Comment on above: Performed By: #### A FPA4 #### [facility] [address] [place] [address] BASE EXCESS-BLOOD 0.8 mmol/L Normal -2.0 - 3.0 [facility] [place] Comment on above: Performed By: #### A FPA4 #### [facility] [address] [place] [address] BICARB, CALCULATED 26.6 mmol/L High 22.0 - 26.0 [facility] Comment on above: Performed By: #### A FPA4 #### [facility] [address] [place] [address] CALCIUM,IONIZED 1.15 mmol/L Normal 1.10 - 1.33 [facility] Comment on above: Performed By: #### A FPA4 #### [facility] [address] [place] [address] Chloride [Moles/Vol] 102 mmol/L Normal 98 - 107 [facility] Comment on above: Performed By: #### A FPA4 #### [facility] [address] [place] [address] Glucose [Mass/Vol] 114 mg/dL High 74 - 99 [facility] Comment on above: Performed By: #### A FPA4 #### [facility] [address] [place] [address] Hematocrit (Bld) [Volume fraction] 42.0 % Normal 41.0 - 52.0 [facility] Comment on above: Performed By: #### A FPA4 #### [facility] [address] [place] [address] Hemoglobin (Bld) [Mass/Vol] 14.1 g/dL Normal 13.5 - 17.5 [facility] Comment on above: Performed By: #### A FPA4 #### [facility] [address] [place] [address] Lactate [Moles/Vol] 1.3 mmol/L Normal 0.4 - 2.0 [facility] Comment on above: Performed By: #### A FPA4 #### [facility] [address] [place] [address] OXY HGB 97.5 % Normal 94.0 - 98.0 [facility] Comment on above: Performed By: #### A FPA4 #### [facility] [address] [place] [address] Oxygen (Bld) [Partial pressure] 160 mm[Hg] High 85 - 95 [facility] Comment on above: Performed By: #### A FPA4 #### [facility] [address] [place] [address] PATIENT TEMPERATURE 37.0 degrees C Normal U [facility] Comment on above: Result Comment: NOTE : PATIENT RESULTS ARE NOT CORRECTED FOR TEMPERATURE. Performed By: #### A FPA4 #### [facility] [address] [place] [address] PCO2 46 mmHg High 38 - 42 [facility] Comment on above: Performed By: #### A FPA4 #### [facility] [address] [place] [address] pH (Bld) 7.37 [pH] Low 7.38 - 7.42 [facility] Comment on above: Performed By: #### A FPA4 #### [facility] [address] [place] [address] Potassium [Moles/Vol] 4.8 mmol/L Normal 3.5 - 5.3 [facility] Comment on above: Performed By: #### A FPA4 #### [facility] [address] [place] [address] SO2 100 % Normal 94 - 100 [facility] Comment on above: Performed By: #### A FPA4 #### [facility] [address] [place] [address] Sodium [Moles/Vol] 135 mmol/L Low 136 - 145 [facility] Comment on above: Performed By: #### A FPA4 #### [facility] [address] [place] [address] Admission Risk Screen - Adul ton 09-26-2021 [...] AlertFor Ebola-like Symptoms: Isolate Patient and Notify Provider/Dressing Machine Operator For Contact: Notify Provider/Dressing Machine Operator Advance Directive: Advance Directive/DNRno Advance Directive Information [...] Communicatenone Learning Preferencesaudio Cultural Considerationsnone Developmental Considerationsnone Moravian Considerationsnone Learning Assessment (Other Learner): Other learner availableno Depression Screen: During the past month, have you often been bothered by feeling down, depressed or hopelessno During the past month, have you often had little interest or pleasure in doing thingsno Have you had any thoughts of harming anyone elseno Pierron Suicide: Risk Screen Not Applicable/Able to Answerable to be screened In the Past Month: Have you wished you were or could go to sleep and not wake upno(1) In the Past Month: Have you had any actual thoughts of killing yourself no(1) Lifetime: Have you ever done, started to do, or prepared to do anything to end your lifeno(1) Pierron Suicide Risknegative Adult Nutrition Screen: Have you [...] Spiritual Screen: Are there any cultural, spiritual, latter day practices/values/needs that are important for us to knowno CAGE: Is this an injured patient at a Trauma Center ([facility]/[place] /[place]): no Vaccinations: Vaccination - Influenza Vaccination Screen: Is it flu season (between and September 21)Yes Screening for identified contraindications to influenza vaccinationpatient already received vaccine this season Vaccination - Pneumonia Vaccination Screen: Patient has received a previous pneumonia vaccine:no/unknown... Immunocompetent persons with underlying chronic conditions or r (more content not included)... Normal [facility] Daily Progress Note-Orthopae dicson 09-26-2021 Daily Progress [...] Recent Arterial Blood Gas Results 09/26/2021 12:37 gP8800 pH7.37 eJT352 OR1308 Base Excess0.8null Assessment and Plan: Code Status: Code StatusFull Code Assessment: 61 y/o male s/p L3/4-4/5 XLIF, L3-5 perc PSIF on 09/26/[address] Richardson, doing well. Plan: - WB status: WBAT, no excessive bending/twisting - DVT ppx: SCDs + Teds at all times while in bed, ambulation - Diet: Clear liquid diet, ADAT to regular - SOFTBALL COACH => PO pain medication per pain protocol - 24 hr perioperative abx: clinda x 4 doses - FEN: Continue NS at 100cc/hr; HLIV with good PO intake - Bowel Regimen: Colace, Dulcolax, Senna - PT/OT consult - Continue home medications - Discontinue goodrich catheter POD #1 - Decadron 4mg q6hr x4 doses Dispo: to VERONICA Steinberg M.D. Orthopaedic Surgery, PGY-2 Pager: [phone] Orthopaedic Spine Team Brannon Steinberg, PGY-2 [phone] - 1st call Orquidea Akbar PGY-4 [phone] - 2nd call Available via Doc Halo After 5pm-7am, weekends, holidays please page [phone] for business development professional resident for urgent questions/concerns. Attestation: Note [...] the note. I personally evaluated the patient [id number] Electronic Signatures: Sal Richardson) (Signed 29-Sep-2021 11:38) Authored: Note Completion Co-Signer: Service, Subjective Data, Objective Data, Assessment and Plan, Note Completion Timothy Steinberg (Resident)) (Signed 26-Sep-2021 15:36) Authored: Service, Subjective Data, Objective Data, Assessment and Plan, Note Completion Last Updated: 29-Sep-2021 11:38 by Sal Richardson) Normal [facility] Discharge Planning [id number] 0 09-26-2021 Discharge Planning Note2 Discharge Planning: Planned Dispositionhome Anticipated Discharge [id number]-Psy-6276 Discharge Planning 09/27/21 1335 Transitional Care Coordination Progress Note: TCC verified demo is correct. lives at home with . pcp dania armstrong. received covid vaccine x2 and booster x1. feels safe to return home today Patient discussed during interdisciplinary rounds. Team members present: MD/RV DETAILER, TCC, Plan per Medical/Surgical team: patient goodrich out. button clamper changed to oral with pain control. MR for dc after working with PT OT today Status: inpatient Payor source: commercial Discharge disposition: home no needs per PT OT eval Potential Barriers: ADOD: today Calli Jones RN TCC 09/27/21 Patient discharged home with . Heather Foster RN Assessment: Discharge Planning Assessment [id number]-3692 Discharge Planning Assessment Completed bycalli jones RN TCC Primary Contact Name and Numberwife gus- [phone] Prior Level of FunctioningNA Lives Withspouse(1) Living Arrangementshouse(1) Stated Reason for Admissionback and hip pain(1) [place] ([place]) [facility]CP[facility]ia [facility] [place]/ Injury/ Need Assist with AmbulationNA DME Supplier Name/NumberNA Home Care Agency/Support ServicesNA Diabetic/Supplies NeededNA Hemodialysis ScheduleNA Resource/Environmental Concernsnone(1) Anticipated Transition [place](1) Services Anticipated at Transitionnon(1) Readmission Within the Last 30 Daysno previous admission in last 30 days PCP Last Date Seende 2020 InsuranceCommercial Transportation Home [facility] Medication Adherence/Afford/Obtainy es O2 LPMNA Nursing Checklist: Lines/Cathetersremoved/a ppropriate for next level of care Discharge Med Rec Reconciled with Loree Patient has Prescriptionsyes Transportation for Discharge Confirmedyes Follow up Reviewedyes Discharge Instructions Reviewed WithPatient Discharge Instructions Outcomeverbalize recall/understanding Discharge Instructions Review Completed with Patient/Family (diet, activity, pt instructions)yes Discharge Documentation: Discharge/Transfer Date/[id number]-Fmp-8715 17:00 Discharged Accompanied Byspouse Discharge Modewheelchair Transportation Methodprivate car Code StatusCode Status order at time of discharge: Full Code [place] DNR Form Sent with Patient and/or Familyn/a Valuables/Medications/Be longings Returnedyes [facility] Electronic Signatures: HEDY SHEPPARD) (Signed 26-Sep-2021 21:59) Authored: Discharge Planning, Assessment, Discharge Documentation Heather Foster) (Signed 27-Sep-2021 17:12) Authored: Discharge Planning, Nursing Checklist, Discharge Documentation Calli Jones (RN) (Signed 27-Sep-2021 13:35) Authored: Discharge Planning, Assessment Last Updated: 27-Sep-2021 17:12 by Heather Foster (RN) References: 1. Data Referenced From Patient Profile - Adult v2 26-Sep-2021 21:07 Normal [facility] Discharge [id number] 022 Discharge Profile2 Discharge Orders: Anticipated Discharge Date: Anticipated Discharge [id number]-[id number]-8508 Problem List: Additional Dx: Lumbar radicular pain: [...] ANTONIO REMOVED IN 3 WKS. [place] [address] [address] [facility] ON 10/18/2021 AT 0930 WITH [facility]ON SANTIAGO. REHAB FACILITIES OR HOME CARE MAY REMOVE ANTONIO OR SUTURES. Wound Care 2: Wound SiteBACK (Lumbar Spine) Wound Typesurgical incision Change Dressingdaily Cleanse Withsoap and water Cover Withabdominal dressing Tape Withpaper tape Instructionsno lotions, creams, or tub soaks Other InstructionsPLEASE HAVE ANTONIO REMOVED IN 3 WKS. [place] [address] [facility] 5TH FLOOR ON 10/18/2021 AT 0930 WITH [...] floor. Patient was initially started on dilaudid SOFTBALL COACH x24 hours and then transitioned to [...] Call to Schedule in6 weeks, PLEASE CALL [phone] TO SCHEDULE YOUR AMBER (more content not included)... Normal [facility] - [facility] PREOPERATIVE DIAGNOSIS: Spinal stenosis and spondylolisthesis L3-4 and L4-5 in a patient with unrelenting claudication and radiculopathy. POSTOPERATIVE DIAGNOSIS: Spinal stenosis and spondylolisthesis L3-4 and L4-5 in a patient with unrelenting claudication and radiculopathy. OPERATION/PROCEDURE: Anterior lumbar interbody fusion by extreme lateral approach at L3-4 and L4-5 with use of interbody cage device x2. SURGEON: Sal Richarsdon MD. CHILD CAREGIVER(S): assistant manager airside operations: Cb Casanova PA-C. Second cashier assistant: Brannon Steinberg, second resident. ANESTHESIA: ESTIMATED [...] Deep layers were repaired using 0 Vicryl rfzgxc-uz-xpomx sutures, deep dermal layer was repaired using 2-0 Vicryl sutures, and the skin was repaired using antonio. Dry sterile dressing was ap (more content not included)... Normal [facility] Operative Reports - [facility] PREOPERATIVE DIAGNOSIS: POSTOPERATIVE DIAGNOSIS: OPERATION/PROCEDURE: Posterior spinal [...] Deep layers were repaired using 0 Vicryl bopwno-vu-xmdji sutures, deep dermal layer was repaired using [...] instrumentation and fusion. SURGEON: Sal Richardson MD. CHILD CAREGIVER(S): ANESTHESIA: This is part 2 of a two-staged procedure. Part 1 was dictated in dictation #[id number]. Refer to dictation #[id number] for all details regarding the first part of the surgery. Sal Richardson MD EST EST DICTATION NUMBER: [id number] INTERNAL JOB NUMBER: [id number] CC: Sal Richardson MD, Electronic Signatures: Sal Richardson) (Signed on 03-Oct-2021 12:03) Authored Unsigned, Draft (SYS GENERATED) (Entered on 30-Sep-2021 07:37) Entered Last Updated: 03-Oct-2021 12:03 by Sal Richardson) [facility] Order Reconciliationon 09-26 Order Reconciliation Page 1 Admission Reconciliation Document Reconciliation Type: Admission from OR requested on behalf of Timothy Steinberg (Resident) done by Timothy Steinberg (Resident)) Admission from OR - Reconciliation: 26-Sep-2021 18:10 by: Timothy Steinberg (Resident)) Home MedicationsEnteredLast Dose TakenReconciled with current Order Reconciliation Comment/ Additional Information hydroxychloroquine 200 mg oral tablet 1 tab(s) oral 2 times a [id number]-Sep-2021 Hydroxychloroquine - PEDS Tablet (PLAQUENIL)DOSE = 200 mg Oral 2 Times a Dayhydroxychloroquine 200 mg oral tablet continued as the inpatient order Hydroxychloroquine - PEDS irbesartan 300 mg oral tablet 1 tab(s) oral once a [id number] 2 Reviewed and Held methocarbamol 500 mg oral tablet 2 tab(s) oral every 8 [id number]-[id number]-Sep-2021 Reviewed and Held NIFEdipine 30 mg oral tablet, extended release 1 tab(s) oral once a day NIFEdipine (PROCARDIA XL) Extended Release Tablet, Extended ReleaseDOSE = 30 mg Oral DailyNIFEdipine 30 mg oral tablet, extended release continued as the inpatient order NIFEdipine (PROCARDIA XL) Extended Release pantoprazole 40 mg oral delayed release tablet 1 tab(s) oral once a day [id number] Pantoprazole Enteric Coated Tablet (PROTONIX)DOSE = 40 mg Oral Dailypantoprazole 40 mg oral delayed release tablet continued as the inpatient order Pantoprazole tiZANidine 4 mg oral tablet 1 oral Reviewed and Held Vitamin C 1 3 times a [id number]-960 2 Reviewed and Held Vitamin D3 1 3 times a lgr13-Kke-090573-Dmt-440 2 Reviewed and Held Zinc 140 mg [...] of 4 mg regardless of dose. HYDROmorphone SOFTBALL COACH 25 mg/ NaCL 0.9% 50 mL (DILAUDID IV SOFTBALL COACH)DEMAND/ SOFTBALL COACH Dose = 0.2 mgDELAY/ Lockout Time [...] unarousable, and respiratory rate lessClinician Notes: HOLD SOFTBALL COACH Infusion and notify H.O. immediately Ondansetron [...] hours: Do NOT use with Bisacodyl. Normal [facility] Patient Profile - Adult v2on 09-26-2021 Patient Profile - Adult v2 Profile: Initial Info: How to be AddressedPaul(1) Spoken Language PreferredEnglish (1) Stated Reason for Admissionback and hip pain Wants Family/Rep Notified of Admissionno Notify PCPdo not notify PCP Informed of Patient Visiting Rightsyes [place] Patient Belongingsremains with patient Patient Belongings Remaining [...] From 1. Vital Signs 26-Sep-2021 07:09 Normal [facility] Patient Profile - Preop v3on 09-26-2021 Patient Profile - Preop v3 Patient Profile - Preop: Initial Info: Patient DemographicsName: JAY CARR Date: 1960 [address]: [address] [place] [address] [facility] [address] Primary Phone [phone] How to be AddressedPaul Spoken Language PreferredEnglish [...] Withspouse Living Arrangementshouse Resource/Environmental Concernsnone [facility] Anticipated at Transitionnone Tobacco Use: Tobacco Useno Pre-op Checklist: Arrival Naiw70-Tpj-2387 NPOyes ID Band On Patientpatient ID (name), [...] 26-Sep-2021 07:11 by Maisha Meyer (ALICE) Normal [facility] CORONAVIRUS 2019, SCREEN ASY MPTOMATICon 09-25-2021 SARS-CoV-2 (COVID-19) RNA LU+probe Ql (Unsp spec) Not detected Normal Not Detected [facility] Comment on above: Result Comment: . This [...] patient management decisions. Fact sheet for providers: https://www.fda.gov/media/602455/download Fact sheet for patients: https://www.fda.gov/media/622539/download This test has received FDA Emergency Use Authorization (EUA) and has been verified by [facility] ([facility]). This test is only authorized for the duration of time that circumstances exist to justify the authorization of the emergency use of in vitro diagnostic tests for the detection of SARS-CoV-2 virus and/or diagnosis of COVID-19 infection under section 564(b)(1) of the Act, 21 U.S.C. 360bbb-3(b)(1), unless the authorization is terminated or revoked sooner. [facility] is certified under CLIA-88 as qualified to perform high complexity testing. Testing is performed in the [facility] laboratories located at [address] [place] [address]. Performed By: #### U ARFX #### [place] [address] Lab Specimen Source Nasal, Nasopharyngeal Normal [facility] Comment on above: Performed By: #### U ARFX #### [place] [address] Covid 19 Resultson 2 SARS-CoV-2 (COVID-19) RNA [...] may also be contacted by the [facility] to see [...] or Naproxen (Aleve) can also be used. Gzef-dov-fvtoygc cough and cold medicines can be used according to the instructions on the package. Some fzrg-czn-fwapjnn medicines also contain acetaminophen. Make sure you [...] water are not available, use alcohol-based hand outreach worker. Avoid touching your eyes, nose, and mouth [...] 24 mary (more content not included)... Normal [facility] COAGULATION SCREENon 022 aPTT Coag (Bld) [Time] 34 s Normal 26 - 39 [facility] Comment on above: Result Comment: THE APTT IS NO LONGER USED FOR MONITORING UNFRACTIONATED HEPARIN THERAPY. FOR MONITORING HEPARIN THERAPY, USE THE HEPARIN ASSAY. Performed By: #### U ARFX #### [facility] [address] [place] [address] PT Coag (PPP) [Time] 11.1 s Normal 9.8 - 13.4 [facility] Comment on above: Performed By: #### U ARFX #### [facility] [address] [place] [address] PT, INR 1.0 Normal 0.9 - 1.1 [facility] Comment on above: Performed By: #### U ARFX #### [facility] [address] [place] [address] Laboratory - Blood bankon ABO group Nom [...] SCREEN PATIENT: JAY CARR LOCATION: RICHARD STOLL#: [id number] : 62 AGE: SEX: M ORDERED BY: SAL RICHARDSON SOURCE: ANTERIOR NARES COLLECTED: 09/19/21 10:10 ANTIBIOTICS AT BRAEDEN.: RECEIVED : 09/19/21 12:47 SITE: Nasal R E S U L T S STAPH/MRSA SCREEN FINAL 09/20/21 13:57 NO Staphylococcus aureus ISOLATED. Normal [facility] Comment on above: Performed By: #### S TAPH #### [facility] [address] [place] [address] TYPE + SCREENon 09-19-2021 ABO TYPE O Normal [facility] Comment on above: Performed By: #### T +S #### [facility] [address] [place] [address] RH TYPE Negative Normal [facility] Comment on above: Performed By: #### T +S #### [facility] [address] [place] [address] URINALYSISon 09-19-2021 Appearance (U) Canceled Normal [facility] Comment on above: Order Comment: TEST URINALYSIS WAS CANCELLED, 09/19/2021 12:02 DUPLICATE ORDER. Performed By: #### U A #### [facility] [address] [place] [address] ASCORBIC ACID Canceled Normal [facility] Comment on above: Order Comment: TEST URINALYSIS WAS CANCELLED, 09/19/2021 12:02 DUPLICATE ORDER. Result Comment: Conc entrations > = 20 mg/dL of ascorbic acid can be expected to cause strong interference in the reactions testing for glucose, nitrite and blood. It is recommended to discontinue Vitamin C administration and retest in 10 hours. Performed By: #### U A #### [facility] [address] [place] [address] Bilirubin Ql (U) Canceled Normal [facility] Comment on above: Order Comment: TEST URINALYSIS WAS CANCELLED, 09/19/2021 12:02 DUPLICATE ORDER. Performed By: #### U A #### [facility] [address] [place] [address] Color (U) Canceled Normal [facility] Comment on above: Order Comment: TEST URINALYSIS WAS CANCELLED, 09/19/2021 12:02 DUPLICATE ORDER. Performed By: #### U A #### [facility] [address] [place] [address] Glucose Ql (U) Canceled Normal [facility] Comment on above: Order Comment: TEST URINALYSIS WAS CANCELLED, 09/19/2021 12:02 DUPLICATE ORDER. Performed By: #### U A #### [facility] [address] [place] [address] Hemoglobin Ql (U) Canceled Normal [facility] [place] Comment on above: Order Comment: TEST URINALYSIS WAS CANCELLED, 09/19/2021 12:02 DUPLICATE ORDER. Performed By: #### U A #### [facility] [address] [place] [address] Ketones Ql (U) Canceled Normal [facility] Comment on above: Order Comment: TEST URINALYSIS WAS CANCELLED, 09/19/2021 12:02 DUPLICATE ORDER. Performed By: #### U A #### [facility] [address] [place] [address] Leukocyte esterase Test strip Ql (U) Canceled Normal [facility] Comment on above: Order Comment: TEST URINALYSIS WAS CANCELLED, 09/19/2021 12:02 DUPLICATE ORDER. Performed By: #### U A #### [facility] [address] [place] [address] Nitrite Ql (U) Canceled Normal [facility] Comment on above: Order Comment: TEST URINALYSIS WAS CANCELLED, 09/19/2021 12:02 DUPLICATE ORDER. Performed By: #### U A #### [facility] [address] [place] [address] pH Canceled Normal [facility] Comment on above: Order Comment: TEST URINALYSIS WAS CANCELLED, 09/19/2021 12:02 DUPLICATE ORDER. Performed By: #### U A #### [facility] [address] [place] [address] Protein Ql (U) Canceled Normal [facility] Comment on above: Order Comment: TEST URINALYSIS WAS CANCELLED, 09/19/2021 12:02 DUPLICATE ORDER. Performed By: #### U A #### [facility] [address] [place] [address] Specific gravity (U) [Rel density] Canceled Normal [facility] Comment on above: Order Comment: TEST URINALYSIS WAS CANCELLED, 09/19/2021 12:02 DUPLICATE ORDER. Performed By: #### U A #### [facility] [address] [place] [address] UROBILINOGEN Canceled Normal [facility] Comment on above: Order Comment: TEST URINALYSIS WAS CANCELLED, 09/19/2021 12:02 DUPLICATE ORDER. Performed By: #### U A #### [facility] [address] [place] [address] URINALYSIS WITH CULTURE IF I NDICATEDon 09-19-2021 Appearance (U) CLEAR Normal CLEAR [facility] Comment on above: Performed By: #### U ARFX #### [facility] [address] [place] [address] Bilirubin Ql (U) Negative Normal NEGATIVE [facility] Comment on above: Performed By: #### U ARFX #### [facility] [address] [place] [address] Color (U) YELLOW Normal STRAW,YELL OW [facility] Comment on above: Performed By: #### U ARFX #### [facility] [address] [place] [address] Glucose Ql (U) Negative Normal NEGATIVE [facility] Comment on above: Performed By: #### U ARFX #### [facility] [address] [place] [address] Hemoglobin Ql (U) Negative Normal NEGATIVE [facility] [place] Comment on above: Performed By: #### U ARFX #### [facility] [address] [place] [address] Ketones Ql (U) Negative Normal NEGATIVE [facility] Comment on above: Performed By: #### U ARFX #### [facility] [address] [place] [address] Leukocyte esterase Test strip Ql (U) Negative Normal NEGATIVE [facility] Comment on above: Performed By: #### U ARFX #### [facility] [address] [place] [address] Nitrite Ql (U) Negative Normal NEGATIVE [facility] Comment on above: Performed By: #### U ARFX #### [facility] [address] [place] [address] pH (U) 6.0 [pH] Normal 5.0 - 8.0 [facility] Comment on above: Performed By: #### U ARFX #### [facility] [address] [place] [address] Protein Ql (U) Negative Normal NEGATIVE [facility] Comment on above: Performed By: #### U ARFX #### [facility] [address] [place] [address] Specific gravity (U) [Rel density] 1.016 Normal 1.005 - 1.035 [facility] Comment on above: Performed By: #### U ARFX #### [facility] [address] [place] [address] Urobilinogen (U) [Mass/Vol] mg/dL Normal 0.0 - 1.9 [facility] Comment on above: Performed By: #### U ARFX #### [facility] [address] [place] [address] Color (U) YELLOW See Below [facility] [...] may no (more content not included)... 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 COMPARISON: None. ACCESSION NUMBER(S): [id number] ORDERING CLINICIAN: SAL RICHARDSON FINDINGS: C-spine, two views Anterior spinal fusion C5-C7 with intact hardware. There is normal alignment. No fracture. No degenerative changes seen. IMPRESSION: Anterior spinal fusion C5-C7 without evidence hardware failure Electronically signed by: JULIA ARAIZA MD Normal [facility] CORONAVIRUS 2018, SCREEN ASY MPTOMATICon 07-05-2021 DATE OF SYMPTOM ONSET [[id number]]? Canceled Normal [facility] Comment on above: Order Comment: TEST CORONAVIRUS 2018, SCREEN ASYMPTOMATIC WAS CANCELLED, 07/05/2021 13:31 ptdid not have test done.. Performed By: #### U ARFX #### [facility] [address] [place] [address] SARS-CoV-2 (COVID-19) RNA LU+probe Ql (Unsp spec) Canceled Normal [facility] Comment on above: Order Comment: TEST CORONAVIRUS [...] patient management decisions. Fact sheet for providers: https://www.fda.gov/media/379729/download Fact sheet for patients: https://www.fda.gov/media/690213/download This test has received FDA Emergency Use Authorization (EUA) and has been verified by [facility] ([facility]). This test is only authorized for the duration of time that circumstances exist to justify the authorization of the emergency use of in vitro diagnostic tests for the detection of SARS-CoV-2 virus and/or diagnosis of COVID-19 infection under section 564(b)(1) of the Act, 21 U.S.C. 360bbb-3(b)(1), unless the authorization is terminated or revoked sooner. [facility] is certified under CLIA-88 as qualified to perform high complexity testing. Testing is performed in the [facility] laboratories located at [address] [place] [address]. Performed By: #### U ARFX #### [place] [address] ABO/RH GROUP TESTon 06-21-20 21 ABO TYPE O Normal [facility] Comment on above: Performed By: #### U ARFX #### [place] [address] RH TYPE Negative Normal [facility] Comment on above: Performed By: #### U ARFX #### [place] [address] Operative Reports - [facility] Operative Reports - [address] [place] [address] Patient Name: PAUL. Trena CARR : 1960 Date of Service: 06/21/2021 Patient Location: [place] [address] Patient Type: O Surgeon: Sal Richardson MD [...] anterior plate instrumentation. SURGEON: Sal Richardson MD CHILD CAREGIVER(S): Ad Valdivia MD, chief resident. ANESTHESIA: ESTIMATED [...] current moratorium due to short staffing at [facility]. The patient agreed to have the [...] posi (more content not included)... Normal [facility] Order Reconciliationon 06-21 Order Reconciliation Page 1 [...] a day (more content not included)... Normal [facility] Order Reconciliation Page 1 Admission Reconciliation Document Reconciliation Type: Admission requested on behalf of Cheikh August (Resident) done by Cheikh August ( (Resident)) Admission - Reconciliation: 21-Jun-2021 06:37 by: Cheikh August ( (Resident)) Home MedicationsEnteredLast Dose TakenReconciled with current Order Reconciliation Comment/ Additional Information celecoxib 200 mg oral capsule 1 cap(s) oral 2 times a [id number] Reviewed and Held gabapentin 300 mg oral capsule 1 tab(s) oral once a [id number] Reviewed and Held hydroxychloroquine 200 mg oral tablet 1 tab(s) oral 2 times a def95-Ktx-6019 Hydroxychloroquine Tablet (PLAQUENIL)DOSE = 200 mg Oral 2 Times a Day hydroxychloroquine 200 mg oral tablet continued as the inpatient order Hydroxychloroquine irbesartan 300 mg oral tablet 1 tab(s) oral once a vkx66-[id number]-8240 Reviewed and Held NIFEdipine 30 mg oral [...] Pantoprazole Vitamin C 1 3 times a nwq66-Wge-5288 Reviewed and Held Vitamin D3 1 3 times a rvt62-Jma-0584 Reviewed and Held Zinc 140 mg (as elemental zinc 50 mg) oral tablet 1 tab(s) oral once a day 21-Jun-2021 Reviewed and Held Normal [facility] Patient Profile - Preop v3on 06-21-2021 Patient Profile - Preop v3 Patient Profile - Preop: Initial Info: Patient DemographicsName: JAY CARR Date: 1960 Address: [address] [place] [address] [place] [address] Primary Phone [phone] How to be AddressedPaul Spoken Language PreferredEnglish Source of Informationpatient Stated Reason for Admissionback surgery Primary Contact Name and NumberTreangeline Carr () [phone] Limitations on Visitors/Phone Callsnone Patient Belongings2 bags in pacu, glasses and phone with pt Medications Brought to [facility]: Weight in kg98.9 kilogram(s) Weight in hnt772 pound(s) Weight Methodactual (measured) Scale Typestanding Height [...] Withspouse Living Arrangementshouse Resource/Environmental Concernsnone Anticipated [facility] Anticipated at Transitionnone Tobacco Use: Tobacco Useno Pre-op Checklist: Arrival [id number] Arrival Time06:43 Procedure TypeC5-7 decompression and fusion [...] 21-Jun-2021 06:45 by Maisha Meyer (ALICE) Normal [facility] CORONAVIRUS 2019, SCREEN ASY MPTOMATICon 06-20-2021 SARS-CoV-2 (COVID-19) RNA LU+probe Ql (Unsp spec) Not detected Normal Not Detected [facility] Comment on above: Result Comment: . This [...] patient management decisions. Fact sheet for providers: https://www.fda.gov/media/935457/download Fact sheet for patients: https://www.fda.gov/media/120241/download This test has received FDA Emergency Use Authorization (EUA) and has been verified by [facility] ([facility]). This test is only authorized for the duration of time that circumstances exist to justify the authorization of the emergency use of in vitro diagnostic tests for the detection of SARS-CoV-2 virus and/or diagnosis of COVID-19 infection under section 564(b)(1) of the Act, 21 U.S.C. 360bbb-3(b)(1), unless the authorization is terminated or revoked sooner. [facility] is certified under CLIA-88 as qualified to perform high complexity testing. Testing is performed in the [facility] laboratories located at [address] [place] [address]. Performed By: #### U ARFX #### [address] [place] [address] Covid 19 Resultson 1 SARS-CoV-2 (COVID-19) RNA [...] may also be contacted by the [facility] to see [...] or Naproxen (Aleve) can also be used. Olup-knt-kapmwim cough and cold medicines can be used according to the instructions on the package. Some ybmr-ega-yrriczx medicines also contain acetaminophen. Make sure you [...] water are not available, use alcohol-based hand outreach worker. Avoid touching your eyes, nose, and mouth [...] 24 mary (more content not included)... Normal [facility] CORONAVIRUS 2019, SCREEN ASY MPTOMATICon 06-19-2021 Lab Specimen Source Nasal, Nasopharyngeal Normal [facility] Comment on above: Performed By: #### U ARFX #### [facility] [address] [place] [address] BASIC METABOLIC PANELon 05-24 Anion gap [Moles/Vol] 14 mmol/L Normal 10 - 20 [facility] Comment on above: Performed By: #### B MP #### [facility] [address] [place] [address] Calcium [Mass/Vol] 9.0 mg/dL Normal 8.6 - 10.6 [facility] Comment on above: Performed By: #### B MP #### [facility] [address] [place] [address] Chloride [Moles/Vol] 105 mmol/L Normal 98 - 107 [facility] Comment on above: Performed By: #### B MP #### [facility] [address] [place] [address] Creatinine [Mass/Vol] 0.85 mg/dL Normal 0.50 - 1.30 [facility] Comment on above: Performed By: #### B MP #### [facility] [address] [place] [address] GFR- AM. >60 Normal >60 [facility] Comment on above: Result Comment: CALC ULATIONS OF ESTIMATED GFR ARE PERFORMED USING THE MDRD STUDY EQUATION FOR THE IDMS-TRACEABLE CREATININE METHODS. CLIN CHEM 2007;53:766-72 Performed By: #### B MP #### [facility] [address] [place] [address] GFR-NON AM. >60 Normal >60 [facility] Comment on above: Performed By: #### B MP #### [facility] [address] [place] [address] Glucose [Mass/Vol] 87 mg/dL Normal 74 - 99 [facility] Comment on above: Performed By: #### B MP #### [facility] [address] [place] [address] HCO3 (Bld) [Moles/Vol] 27 mmol/L Normal 21 - 32 [facility] Comment on above: Performed By: #### B MP #### [facility] [address] [place] [address] Potassium [Moles/Vol] 4.7 mmol/L Normal 3.5 - 5.3 [facility] Comment on above: Performed By: #### B MP #### [facility] [address] [place] [address] Sodium [Moles/Vol] 141 mmol/L Normal 136 - 145 [facility] Comment on above: Performed By: #### B MP #### [facility] [address] [place] [address] Urea nitrogen [Mass/Vol] 19 mg/dL Normal 6 - 23 [facility] Comment on above: Performed By: #### B MP #### [facility] [address] [place] [address] CBCon 06-02-2021 Erythrocyte distribution width (RBC) [Ratio] 12.4 % Normal 11.5 - 14.5 [facility] Comment on above: Performed By: #### U A #### [facility] [address] [place] [address] Hematocrit (Bld) [Volume fraction] 43.6 % Normal 41.0 - 52.0 [facility] Comment on above: Performed By: #### U A #### [facility] [address] [place] [address] Hemoglobin (Bld) [Mass/Vol] 14.8 g/dL Normal 13.5 - 17.5 [facility] Comment on above: Performed By: #### U A #### [facility] [address] [place] [address] MCHC (RBC) [Mass/Vol] 33.9 g/dL Normal 32.0 - 36.0 [facility] Comment on above: Performed By: #### U A #### [facility] [address] [place] [address] MCV (RBC) [Entitic vol] 93 fL Normal 80 - 100 [facility] Comment on above: Performed By: #### U A #### [facility] [address] [place] [address] NUCLEATED RBC 0.0 /100 WBC Normal 0.0-0.0 [facility] Comment on above: Performed By: #### U A #### [facility] [address] [place] [address] Platelets (Bld) [#/Vol] 295 10*3/uL Normal 150 - 450 [facility] Comment on above: Performed By: #### U A #### [facility] [address] [place] [address] RBC 4.69 x10E12/L Normal 4.50 - 5.90 [facility] Comment on above: Performed By: #### U A #### [facility] [address] [place] [address] WBC (Bld) [#/Vol] 8.5 10*3/uL Normal 4.4 - 11.3 [facility] Comment on above: Performed By: #### U A #### [facility] [address] [place] [address] COAGULATION SCREENon 021 aPTT Coag (Bld) [Time] 31 s Normal 26 - 39 [facility] Comment on above: Result Comment: Note new reference range as of 05/23/2021 at 10:00am. Performed By: #### U A #### [facility] [address] [place] [address] PT Coag (PPP) [Time] 12.2 s Normal 9.8 - 13.4 [facility] Comment on above: Result Comment: Note new reference range as of 05/23/2021 at 10:00am. Performed By: #### U A #### [facility] [address] [place] [address] PT, INR 1.1 Normal 0.9 - 1.1 [facility] Comment on above: Performed By: #### U A #### [facility] [address] [place] [address] Laboratory - Blood bankon ABO group Nom [...] SCREEN PATIENT: JAY CARR LOCATION: [facility] STOLL#: [id number] : 62 AGE: SEX: M ORDERED BY: SAL RICHARDSON SOURCE: ANTERIOR NARES COLLECTED: 06/02/21 10:59 ANTIBIOTICS AT BRAEDEN.: RECEIVED : 06/02/21 13:35 SITE: Nasal R E S U L T S STAPH/MRSA SCREEN FINAL 06/04/21 07:50 NO Staphylococcus aureus ISOLATED. Normal [facility] Comment on above: Performed By: #### S TAPH #### [facility] [address] [place] [address] TH CHEST 2 VIEW PA AND LATon 06-02-2021 TH CHEST 2 VIEW PA AND LAT Patient Name: JAY CARR STUDY: TH CHEST 2 VIEW PA AND LAT; 06/02/2021 11:10 am INDICATION: covid follow up . COMPARISON: None. ACCESSION NUMBER(S): [id number] ORDERING CLINICIAN: SAL RICHARDSON FINDINGS: PA and [...] as stated. This study was interpreted at [facility], [place]. Electronically signed by: RANJIT GONZALES MD Normal [facility] TYPE + SCREENon 06-02-2021 ABO TYPE O Normal [facility] Comment on above: Performed By: #### U A #### [facility] [address] [place] [address] RH TYPE Negative Normal [facility] Comment on above: Performed By: #### U A #### [facility] [address] [place] [address] UA MICROSCOPICon 06-02-2021 CA OXALATE CRYSTAL 3+ /HPF Abnormal [facility] Comment on above: Performed By: #### U A #### [facility] [address] [place] [address] Mucus Ql (Urine sed) 4+ /LPF Normal [facility] Comment on above: Performed By: #### U A #### [facility] [address] [place] [address] RBC 11 /HPF Abnormal 0-5 [facility] Comment on above: Performed By: #### U A #### [facility] [address] [place] [address] SQUAMOUS EPITH. CELLS 1 /HPF Normal [facility] Comment on above: Performed By: #### U A #### [facility] [address] [place] [address] WBC 1 /HPF Normal 0-5 [facility] Comment on above: Performed By: #### U A #### [facility] [address] [place] [address] URINALYSIS WITH CULTURE IF I NDICATEDon 06-02-2021 Appearance (U) HAZY Normal CLEAR [facility] Comment on above: Performed By: #### U A #### [facility] [address] [place] [address] Bilirubin Ql (U) Negative Normal NEGATIVE [facility] Comment on above: Performed By: #### U A #### [facility] [address] [place] [address] Color (U) YELLOW Normal STRAW,YELL OW [facility] Comment on above: Performed By: #### U A #### [facility] [address] [place] [address] Glucose Ql (U) Negative Normal NEGATIVE [facility] Comment on above: Performed By: #### U A #### [facility] [address] [place] [address] Hemoglobin Ql (U) Negative Normal NEGATIVE [facility] [place] Comment on above: Performed By: #### U A #### [facility] [address] [place] [address] Ketones Ql (U) Negative Normal NEGATIVE [facility] Comment on above: Performed By: #### U A #### [facility] [address] [place] [address] Leukocyte esterase Test strip Ql (U) Negative Normal NEGATIVE [facility] Comment on above: Performed By: #### U A #### [facility] [address] [place] [address] Nitrite Ql (U) Negative Normal NEGATIVE [facility] Comment on above: Performed By: #### U A #### [facility] [address] [place] [address] pH (U) 5.0 [pH] Normal 5.0 - 8.0 [facility] Comment on above: Performed By: #### U A #### [facility] [address] [place] [address] Protein Ql (U) 100 (2+) Abnormal NEGATIVE [facility] Comment on above: Performed By: #### U A #### [facility] [address] [place] [address] Specific gravity (U) [Rel density] 1.026 Normal 1.005 - 1.035 [facility] Comment on above: Performed By: #### U A #### [facility] [address] [place] [address] Urobilinogen (U) [Mass/Vol] mg/dL Normal 0.0 - 1.9 [facility] Comment on above: Performed By: #### U A #### [facility] [address] [place] [address] Color (U) YELLOW See Below [facility] [...] 05-23-2021 Lab Specimen Source Nasal, Nasopharyngeal Normal [facility] Comment on above: Order Comment: TEST CORONAVIRUS 2019, SCREEN ASYMPTOMATIC WAS CANCELLED, 07/05/2021 13:31 ptdid not have test done.. Performed By: #### U ARFX #### [facility] [address] [place] [address] Tobacco Screening.on 021 Fall risk assessment a) [...] COMPARISON: Lumbosacral spine radiographs 02/09/2021 ACCESSION NUMBER(S): [id number] ORDERING CLINICIAN: TONJA GERARDO TECHNIQUE: Sagittal and [...] degenerative disc height loss at L2-L3 with jzbw-ft-ufdugicg height loss at L1-L2. Conus: The lower [...] right, without spinal canal stenosis. There is xmvm-hz-glaurghs right and mild left neural foraminal narrowing. [...] as stated. This study was interpreted at [facility], [place], [place]. Electronically signed by: STEVE YANG MD Normal [facility] No Panel Informationon 02-09 Normal [facility] Work Phone: Please click on the link to view the study images [facility] Work Phone: SPINE, LUMBOSACRAL; MIN 4 EWSon 02-09-2021 SPINE, LUMBOSACRAL; MIN 4 VIEWS Patient Name: JAY CARR STUDY: Lumbar Spine, 4 views. INDICATION: Low back pain COMPARISON: None. ACCESSION NUMBER(S): [id number] ORDERING CLINICIAN: TONJA GERARDO FINDINGS: Grade 1 [...] signed by: JOSE GOEL MD Normal [facility] MRI L-Ext Joint w/o Contrast [...] formation. No other focal left hip abnormality. [facility] thanks you for the opportunity to care for your patient. Workstation ID: [id number] - [id number] FINAL REPORT Dictated By: Batsheva Brown MD 01/12/2021 08:43 Assigned Physician: Batsheva Brown MD Reviewed and Electronically Signed By: Batsheva Brown MD 01/12/2021 09:09 Transcribed by: CARLOINA 01/12/2021 08:43 Technologist: AMANDA Normal [facility] Basic metabolic 2000 panelon 11-10-2020 Calcium [Mass/Vol] 9.5 mg/dL Normal 8.5-10.6 [facility] Chloride [Moles/Vol] 104 mmol/L Normal 98-107 [facility] CO2 [Moles/Vol] 28 mmol/L Normal 21-32 [facility] Creatinine [Mass/Vol] 0.85 mg/dL Normal 0.55-1.02 [facility] Glucose [Mass/Vol] 112 mg/dL High 70-99 [facility] Potassium [Moles/Vol] 4.2 mmol/L Normal 3.5-5.1 [facility] Sodium [Moles/Vol] 142 mmol/L Normal 136-145 [facility] Urea nitrogen (BldV) [Mass/Vol] 20 mg/dL High 7.0-18.0 [facility] Urea nitrogen/Creatinine [Mass ratio] 24 mg/mg Normal [facility] CBC W Auto Differential pane l (Bld)on 11-10-2020 Basophils (Bld) [#/Vol] 0.0 thou/mcL Normal 0.0-0.2 [facility] Basophils/100 WBC (Bld) 0.5 % Normal 0-3 [facility] Differential cell count method Nom (Bld) AUTOMATED DIFFERENTIAL Normal [facility] Eosinophils (Bld) [#/Vol] 0.1 thou/mcL Normal 0.0-0.4 [facility] Eosinophils/100 WBC (Bld) 0.9 % Normal 0-7 [facility] Erythrocyte distribution width (RBC) [Entitic vol] 13.0 % Normal 11.7-15.0 [facility] Hematocrit (Bld) [Volume fraction] 43.4 % Normal 34.0-50.0 [facility] Hemoglobin (Bld) [Mass/Vol] 15.0 g/dL Normal 11.5-17.0 [facility] Lymphocytes (Bld) [#/Vol] 1.0 thou/mcL Normal 0.7-4.5 [facility] Lymphocytes/100 WBC (Bld) 15.6 % Normal 14-46 [facility] MCH (RBC) [Entitic mass] 32.5 Picograms Normal 27.0-34.0 [facility] MCHC (RBC) [Mass/Vol] 34.6 g/dL Normal 32.0-36.0 [facility] MCV (RBC) [Entitic vol] 94.0 fL Normal 80-98 [facility] Monocytes (Bld) [#/Vol] 0.6 thou/mcL Normal 0.1-1.0 [facility] Monocytes/100 WBC (Bld) 9.8 % Normal 4-13 [facility] Neutrophils (Bld) [#/Vol] 4.7 thou/mcL Normal 1.5-7.8 [facility] Neutrophils/100 WBC (Bld) 73.2 % Normal 40-74 [facility] Platelet mean volume (Bld) [Entitic vol] 9.4 fL Normal 7.5-11.2 [facility] Platelets (Bld) [#/Vol] 220 thou/mcL Normal 140-415 [facility] RBC (Bld) [#/Vol] 4.62 x(10)6/mcL Normal 3.80-5.60 [facility] WBC (Bld) [#/Vol] 6.5 thou/mcL Normal 4.0-10.5 [facility] PT Coag (PPP) [Time]on 11-10 INR Coag (Bld) [Relative time] 0.9 {INR} Normal [facility] Comment on above: Result Comment: ENRRIQUE GRIMES THE INDUCTION PHASE OF ORAL ANTICOAGULATION, THE INR MAY NOT REFLECT THE ANTICOAGULANT STATUS OF THE PATIENT. THERAPEUTIC RANGES FOR INR'S ARE: MOST CLINICAL SITUATIONS: INR 2.0-3.0 MECHANICAL PROSTHETIC VALVES: INR 2.5-3.5 CRITICAL: INR 5.0 Prothrombin Timeon PT Coag (PPP) [Time] 12.6 s Normal 11.9-14.6 [facility] aPTT Coag (Bld) [Time]on aPTT Coag (PPP) [Time] 38.6 s High 23.2-34.6 [facility] Vital Signs Date Time Vital Sign Value Performing Clinician Facility 02-02-2025 10:52-0400 Body height 175.3 cm Theresa Lange NP Work Phone: [facility] 02-02-2025 10:52-0400 Body mass index (BMI) [Ratio] 33.23 kg/m2 Theresa Paystrup RV DETAILER Work Phone: [facility] 02-02-2025 10:52-0400 Body weight 102.06 kg Theresa Paystrup RV DETAILER Work Phone: [facility] 02-02-2025 10:52-0400 Diastolic blood pressure 71 mm[Hg] Theresa Paystrup RV DETAILER Work Phone: [facility] 02-02-2025 10:52-0400 Systolic blood pressure 134 mm[Hg] Theresa Paystrup RV DETAILER Work Phone: [facility] 04-13-2024 09:42-0400 Blood Pressure Location Shun [facility] 04-13-2024 09:42-0400 Body temperature 98.6 [degF] Shun [facility] 04-13-2024 09:42-0400 Diastolic blood pressure 88 mm[Hg] Shun COOK [facility] 04-13-2024 09:42-0400 Heart rate 78 /min Shun COOK [facility] 04-13-2024 09:42-0400 Respiratory rate 16 /min Shun COOK [facility] 04-13-2024 09:42-0400 Systolic blood pressure 137 mm[Hg] Shun COOK [facility] 04-08-2023 10:38-0400 Blood Pressure Location Shun [facility] 04-08-2023 10:38-0400 Diastolic blood pressure 82 mm[Hg] Shun COOK [facility] 04-08-2023 10:38-0400 Heart rate 71 /min Shun MACHADO [facility] 04-08-2023 10:38-0400 Systolic blood pressure 154 mm[Hg] Shun COOK [facility] 10-16-2022 14:18-0400 Blood Pressure Location Shun MACHADO [facility] 10-16-2022 14:18-0400 Diastolic blood pressure 94 mm[Hg] Shun COOK [facility] 10-16-2022 14:18-0400 Heart rate 72 /min Shun MACHADO [facility] 10-16-2022 14:18-0400 Systolic blood pressure 186 mm[Hg] Shun MACHADO [facility] 10-02-2022 13:36-0400 Blood Pressure Location Arely YESSYL [facility] 10-02-2022 13:36-0400 Diastolic blood pressure 80 mm[Hg] Arely NILL [facility] 10-02-2022 13:36-0400 Heart rate 76 /min Arely NILL [facility] 10-02-2022 13:36-0400 Respiratory rate 16 /min Arely NILL [facility] 10-02-2022 13:36-0400 Systolic blood pressure 144 mm[Hg] Arely NILL [facility] 02-15-2022 14:19-0400 Diastolic blood pressure 95 mm[Hg] MD Dania Armstrong Work Phone: [facility] 02-15-2022 14:19-0400 Heart rate 66 /min MD Dania Armstrong Work Phone: [facility] 02-15-2022 14:19-0400 Respiratory rate 16 /min MD Dania Armstrong Work Phone: [facility] 02-15-2022 14:19-0400 SaO2% (BldA) [Mass fraction] 99 % MD Dania Armstrong Work Phone: [facility] 02-15-2022 14:19-0400 Systolic blood pressure 170 mm[Hg] MD Dania Armstrong Work Phone: [facility] 02-15-2022 13:04-0400 Inhaled oxygen flow rate 6 L/min MD Dania Armstrong Work Phone: [facility] 02-15-2022 12:00-0400 Body weight 42 mg MD Dania Armstrong Work Phone: [facility] 02-15-2022 10:03-0400 Body height 175.26 cm MD Dania Armstrong Work Phone: [facility] 02-15-2022 10:03-0400 Body mass index (BMI) [Ratio] 31.3 kg/m2 MD Dania Armstrong Work Phone: [facility] 02-15-2022 10:03-0400 Body weight 96.16 kg MD Dania Armstrong Work Phone: [facility] 02-15-2022 07:29-0400 Body temperature 98.8 [degF] MD Dania Armstrong Work Phone: [facility] 01-24-2022 13:59-0400 Blood Pressure Location Arely LOGAN [facility] 01-24-2022 13:59-0400 Diastolic blood pressure 74 mm[Hg] Arely LOGAN [facility] 01-24-2022 13:59-0400 Heart rate 72 /min Arely KRISHNAMURTHYL [facility] 01-24-2022 13:59-0400 Respiratory rate 16 /min Arely KRISHNAMURTHYL [facility] 01-24-2022 13:59-0400 Systolic blood pressure 140 mm[Hg] Arely NILL [facility] 01-19-2022 16:45-0400 Diastolic blood pressure 84 mm[Hg] MD Dania Armstrong Work Phone: [facility] 01-19-2022 16:45-0400 Heart rate 70 /min MD Dania Armstrong Work Phone: [facility] 01-19-2022 16:45-0400 Respiratory rate 16 /min MD Dania Armstrong Work Phone: [facility] 01-19-2022 16:45-0400 SaO2% (BldA) [Mass fraction] 98 % MD Dania Armstrong Work Phone: [facility] 01-19-2022 16:45-0400 Systolic blood pressure 148 mm[Hg] MD Dania Armstrong Work Phone: [facility] 01-19-2022 15:04-0400 Body height 177.8 cm MD Dania Armstrong Work Phone: [facility] 01-19-2022 15:04-0400 Body mass index (BMI) [Ratio] 31.2 kg/m2 MD Dania Armstrong Work Phone: [facility] 01-19-2022 15:04-0400 Body weight 98.8 kg MD Dania Armstrong Work Phone: [facility] 01-19-2022 14:24-0400 Body temperature 98.6 [degF] MD Dania Armstrong Work Phone: [facility] 09-27-2021 09:44-0400 Body temperature 97.88 [degF] Dania Hoy Other Phone: [facility] 09-27-2021 09:44-0400 Diastolic blood pressure 74 mm[Hg] Dania Hoy Other Phone: [facility] 09-27-2021 09:44-0400 Heart rate 89 /min Dania Hoy Other Phone: [facility] 09-27-2021 09:44-0400 Respiratory rate 18 /min Dania Hoy Other Phone: [facility] 09-27-2021 09:44-0400 SaO2% (BldA) [Mass fraction] 94 % Dania Hoy Other Phone: [facility] 09-27-2021 09:44-0400 Systolic blood pressure 149 mm[Hg] Dania Hoy Other Phone: [facility] 03-16-2021 08:34-0400 Body weight 101.86 kg No PCP None [facility] Work Phone: 03-16-2021 08:34-0400 Diastolic blood pressure 90 mm[Hg] No PCP None [facility] Work Phone: 03-16-2021 08:34-0400 Heart rate 80 /min No PCP None [facility] Work Phone: 03-16-2021 08:34-0400 Respiratory rate 17 /min No PCP None [facility] Work Phone: 03-16-2021 08:34-0400 Systolic blood pressure 166 mm[Hg] No PCP None [facility] Work Phone: Encounters Encounter Date Encounter Type Care Provider Facility Start: 04-19-2025 ambulatory Shun MACHADO Facility :[facility] Start: 03-01-2025 End: 03-01-2025 Patient encounter procedure Sabrina Manriquez RV DETAILER-C -[facility] [address] Work Phone: Start: 03-01-2025 End: 03-01-2025 ambulatory Dania Armstrong MD Work Phone: [facility] Work Phone: Start: 02-02-2025 End: 02-02-2025 Bamboo flowsheet Theresa Paystrup RV DETAILER Work Phone: [facility] Start: 02-02-2025 End: 02-02-2025 Bamboo flowsheet Theresa Paystrup RV DETAILER Work Phone: [facility] Start: 02-02-2025 End: 02-02-2025 Office outpatient new 45 minutes Theresa Paystrup RV DETAILER Work Phone: [facility] Comment on above: Arthritis of right s houlder (Primary Dx); Pre-op exam; Raynaud's disease without gangrene; Age related osteoporosis, unspecified pathological fracture presence ; Primary hypertension ; Lupus erythematosus, unspecified form Start: 02-02-2025 End: 02-02-2025 Preprocedural examination done Theresa Paystrup RV DETAILER Work Phone: [facility] Work Phone: Start: 02-02-2025 End: 02-02-2025 ambulatory THERESA PAYSTRUP Not Available Start: 01-05-2025 End: 01-05-2025 Clinisync Result Encounter Brennen Sam MD Work Phone: [facility] Unsolicited Start: 01-05-2025 End: 01-05-2025 Clinisync Result Encounter Brennen Sam MD Work Phone: [facility] Unsolicited Start: 10-13-2024 End: 10-13-2024 Patient encounter procedure Dania Armstrong MD Work Phone: [facility] [address] Work Phone: Start: 10-13-2024 End: 10-13-2024 ambulatory Dania Armstrong MD Work Phone: [facility] Work Phone: Start: 07-14-2024 End: 07-14-2024 Encounter identifier Fidel Narayan Work Phone: [facility] [place] Start: 07-14-2024 ambulatory Fidel Narayan [facility] Start: 04-13-2024 End: 04-13-2024 ambulatory Shun MACHADO Facility:[facility] Start: 04-13-2024 End: 04-13-2024 Patient encounter procedure Shun MACHADO [facility] Start: 03-04-2024 End: 03-04-2024 ambulatory MD Dania Armstrong Work Phone: [facility] Work Phone: Start: 03-04-2024 End: 03-04-2024 Patient encounter procedure MD Dania Armstrong Work Phone: [facility] [address] Work Phone: Start: 12-27-2023 Non-patient / Non-visit MD Brittani Armstrong Work Phone: [facility] Work Phone: Start: 11-19-2023 End: 11-19-2023 ambulatory MD Dania Armstrong Work Phone: [facility] Work Phone: Start: 11-19-2023 End: 11-19-2023 Patient encounter procedure MD Dania Armstrong Work Phone: [facility] [address] Work Phone: Start: 09-19-2023 End: 09-19-2023 Office outpatient visit 15 minutes Fidel Narayan Work Phone: [facility] Start: 07-18-2023 End: 07-18-2023 ambulatory MD Dania Armstrong Work Phone: [facility] Work Phone: Start: 07-18-2023 End: 07-18-2023 Patient encounter procedure MD Dania Armstrong Work Phone: [facility] [address] Work Phone: Start: 07-05-2023 End: 07-05-2023 Office outpatient new 30 minutes Fidel M Sylvain Work Phone: [facility] Start: 04-08-2023 End: 04-08-2023 Patient encounter procedure Shun MACHADO [facility] Start: 03-12-2023 End: 03-12-2023 ambulatory ANTWAN SORIANO Facility:[facility] Start: 02-19-2023 End: 02-19-2023 ambulatory MD Dania Armstrong Work Phone: [facility] Work Phone: Start: 02-19-2023 End: 02-19-2023 Patient encounter procedure MD Dania Armstrong Work Phone: [facility] [address] Work Phone: Start: 10-16-2022 End: 10-16-2022 Patient encounter procedure Shun MACHADO [facility] Start: 10-15-2022 End: 10-15-2022 ambulatory MD Dania Armstrong Work Phone: [facility] Work Phone: Start: 10-15-2022 End: 10-15-2022 Patient encounter procedure MD Dania Armstrong Work Phone: [facility] [address] Work Phone: Start: 10-02-2022 End: 10-02-2022 Patient encounter procedure Arely LOGAN [facility] Start: 09-11-2022 End: 09-11-[address] DANIA ARMSTRONG . Facility:[facility] Start: 09-05-2022 ambulatory JENI SAEED Faci lity:[facility] Start: 08-31-2022 End: 09-01-[address] ARELY LOGAN . Facility:[facility] Start: 08-27-2022 Chart Update Dania Armstrong Work Phone: [facility] Work Phone: Start: 08-16-2022 End: 08-17-2022 ambulatory WADE NELSON Facility:[facility] Start: 07-19-2022 End: 07-20-2022 ambulatory WADE NELSON Facility:[facility] Start: 07-06-2022 End: 07-07-[address] DANIA ARMSTRONG . Facility:[facility] Start: 06-19-2022 Encounter for preprocedural laboratory examination JENI SAEED [facility] Start: 06-07-2022 End: 06-08-[address] DANIA ARMSTRONG . Facility:[facility] Start: 06-04-2022 End: 06-05-[address] DANIA ARMSTRONG . Facility:[facility] Start: 06-04-2022 End: 06-05-2022 Encounter for preprocedural laboratory examination DR DANIA ARMSTRONG . Facility:[facility] Start: 05-31-2022 Encounter for preprocedural cardiovascular examination JENI SAEED [facility] Start: 05-25-2022 End: 05-26-2022 ambulatory JENI SAEED Facility:[facility] Start: 05-25-2022 End: 05-26-2022 Encounter for preprocedural cardiovascular examination JENI SAEED Facility:[facility] Start: 05-23-[address] DANIA ARMSTRONG . Facili ty:[facility] Start: 05-23-2022 End: 05-23-2022 ambulatory MD Dania Armstrong Work Phone: [facility] Work Phone: Start: 05-23-2022 End: 05-23-2022 Patient encounter procedure MD Dania Armstrong Work Phone: [facility] [address] Start: 05-02-2022 ambulatory Mr. Kenton Lawson Fa cility:[facility] Start: 05-02-2022 Office outpatient vi sit 25 minutes Dania Armstrong Work Phone: UI-Qyohkboeorqh-Uqvjbrs 5FL DO Work Phone: Start: 03-30-2022 Encounter for genera l adult medical examination without abnormal findings DR DANIA ARMSTRONG . [facility] Start: 03-28-2022 End: 03-29-[address] DANIA ARMSTRONG . Facility:[facility] Start: 03-28-2022 End: 03-29-2022 Encounter for general adult medical examination without abnormal findings DR DANIA ARMSTRONG . Facility:[facility] Start: 02-15-2022 End: 02-15-2022 Admission to same day surgery center MD Dania Armstrong Work Phone: [facility] [place] Start: 02-14-2022 End: 02-15-2022 ambulatory JENI Albrecht EDISONNOEMI Facility:[facility] Start: 02-13-2022 End: 02-13-2022 Patient encounter procedure MD Dania Armstrong Work Phone: [facility]Pre-Surgical Testing Start: 01-30-2022 End: 01-30-2022 Patient encounter procedure Shun MACHADO [facility] Start: 01-29-2022 End: 01-30-[address] DANIA ARMSTRONG . Facility:[facility] Start: 01-29-2022 ambulatory Dania Armstrong Fac ility:[facility] Start: 01-29-2022 Office outpatient vi sit 15 minutes Dania Armstrong Work Phone: ML-Npcethoxnlbr-Uqbgjfy 5FL DO Work Phone: Start: 01-29-2022 ambulatory Mr. Kenton Lawson Fa cility:[id number] Start: 01-24-2022 End: 01-24-2022 Patient encounter procedure Arely LOGAN General Surgery [facility] Start: 01-19-2022 End: 01-19-2022 Admission to same day surgery center MD Dania Armstrong Work Phone: [facility] [place] Start: 01-17-2022 End: 01-17-2022 Patient encounter procedure MD Dania Armstrong Work Phone: [facility]Pre-Surgical Testing Start: 01-11-2022 End: 01-12-[address] SHUN MACHADO Facility:[facility] Start: 01-09-2022 End: 01-09-[address] LAURY ZEPEDA Facility:[facility] Start: 01-05-2022 End: 01-06-[address] DANIA ARMSTRONG . Facility:[facility] Start: 12-27-2021 End: 12-28-[address] DANIA ARMSTRONG . Facility:[facility] Start: 12-09-2021 End: 12-10-[address] DANIA ARMSTRONG . Facility:[facility] Start: 11-09-2021 Chart Update Dania Armstrong Work Phone: SF-Pzxpbgqwhtnq-Grzjmk 210 Work Phone: Start: 11-08-2021 Postop follow up vis it related to original px Dania Armstrong Work Phone: WD-Uwovitirqmyu-Wizxadw 5FL DO Work Phone: Start: 11-08-2021 POV, Provider: Kenton Lawson, Status: Pen, Time: 11:00 AM Dania Armstrong Work Phone: SG-Ormiprsxnwqz-Gedgng 210 Work Phone: Start: 11-08-2021 ambulatory Dania Armstrong Fac ility:[facility] Start: 11-07-2021 AUDIT Dania Armstrong Work Phone: YY-Sytpsbnwcqlw-Cnsdgi 210 Work Phone: Start: 09-26-2021 End: 09-27-2021 Evaluation and management of inpatient Sal Richardson PERRI Umana [id number] Start: 09-19-2021 AUDIT Dania Armstrong Work Phone: DO-Zzwqgffceqxwbv-Rhp for Perioperative Med Work Phone: Start: 09-19-2021 ambulatory Dania Rivera ility:[facility] Start: 09-19-2021 Encounter for blood typing Dr. SAL RICHARDSON [facility] Start: 09-19-2021 Encounter for preprocedural laboratory examination Dr. SAL RICHARDSON [facility] Start: 08-23-2021 Office outpatient vi sit 40 minutes Dania Armstrong Work Phone: IZ-Gciaqhztgzyb-Hrjeolr ng-[facility] Work Phone: Start: 08-23-2021 ambulatory Dania Rivera ility:[facility] Start: 08-03-2021 Office outpatient vi sit 25 minutes Dania Armstrong Work Phone: YS-Kmfzhbuxmtbl-Hjhnxu 210 Work Phone: Start: 08-03-2021 ambulatory Referral Self Facility: [id number] Start: 06-21-2021 End: 06-21-2021 ambulatory Dania Armstrong Facility:[facility] Start: 06-02-2021 AUDIT No PCP None [facility] Work Phone: Start: 06-02-[address] SAL RICHARDSON Facility:[facility] Start: 06-02-[address] SAL RICHARDSON Facility:[facility] Start: 06-02-2021 Encounter for other preprocedural examination Dr. SAL RICHARDSON [facility] Start: 06-02-2021 Encounter for preprocedural cardiovascular examination Dr. SAL RICHARDSON [facility] Start: 05-03-2021 Office outpatient vi sit 40 minutes No PCP None OU-Vxizpeqgpusa-Iscrcpf ng[facility] Work Phone: Start: 03-16-2021 NPV, Provider: Nazario Holloway, Status: Pen, Time: 8:30 AM No PCP None [facility] Work Phone: Start: 03-16-2021 Office outpatient ne w 30 minutes No PCP None [facility] Work Phone: Start: 03-16-2021 Patient encounter procedure No PCP None [facility] Work Phone: Start: 03-13-2021 Office consultation new/estab patient 80 min No PCP None [facility] Work Phone: Start: 03-10-2021 Chart Update No PCP None [facility] [address] Work Phone: Start: 03-06-2021 Telephone encounter No PCP None [facility] Work Phone: Start: 02-12-2021 Chart Update No PCP None [facility] [address] Work Phone: Start: 02-09-2021 Office outpatient ne w 45 minutes No PCP None HX-Clhakuwxsgyk-Xiamcj 210 Work Phone: Start: 02-08-2021 AUDIT No PCP None [facility] [address] Work Phone: Procedures Date Procedure Procedure Detail Performing Clinician Start: 01-05-2025 Mri spinal canal cer vical w/o contrast matrl Brennen Sam MD Work Phone: Start: 09-19-2023 End: 09-19-2023 Arthrocentesis aspir&/inj major [...] Comment on above: Performed By: #### P [facility] #### [facility] [address] [place] [address] Dr. Carolyn King Start: 02-15-2022 Cystoscopy MD [...] above: Performed By: #### T +S #### [facility] [id number] [address] [place] [id number] Start: 06-02-[address] ASIA RICHARDSON Comment on above: Performed By: #### U A #### [facility] [id number] [place] [address] Start: 09-05-2016 Colonoscopy Brennen schofield MD Work Phone: Arthroplasty of knee Arely LOGAN Colonoscopy Arley LOGAN Excision of cervical intervertebral disc Arely NILL Excision of melanoma Arely NILL Fusion of lateral jeff mbar interbody Arely NILL Fusion of tarsal joints Ricardo yancey NILL Plan of Treatment Date Care Activity Detail Author Start: 09-05-2026 Screening for malign ant neoplasm of colon [facility] Start: 03-01-2025 Hemolytic complement CH50 level [facility] Start: 02-22-2025 Influenza vaccination Influenza Vacc ine (#1) [facility] Start: 02-02-2025 End: 02-02-2025 Patient encounter procedure 02/02/2025 11:30 AM EDT Consult [facility] [address] [place] [address] Theresa Lange, JANETTE [address] [facility] [place] [address] Arthritis of right shoulder (Primary Dx); Pre-op exam; Raynaud's disease without gangrene; Age related osteoporosis, unspecified pathological fracture presence ; Primary hypertension [facility] Comment on above: Arthritis of right s houlder (Primary Dx); Pre-op exam; Raynaud's disease without gangrene; Age related osteoporosis, unspecified pathological fracture presence ; Primary hypertension Start: 01-29-2025 End: 01-29-2026 CBC W Auto Differential panel - Blood CBC and differential Lab Routine Pre-op exam Expected: 01/29/2025 (Approximate), Expires: 01/29/2026 [facility] Work Phone: Comment on above: Expected: 01/29/2025 (Approximate), Expires: 01/29/2026 Start: 01-29-2025 End: 01-29-2026 Comprehensive metabolic 2000 panel - Serum or Plasma Comprehensive metabolic panel Lab Routine Pre-op exam Expected: 01/29/2025 (Approximate), Expires: 01/29/2026 [facility] Comment on above: Expected: 01/29/2025 (Approximate), Expires: 01/29/2026 Start: 10-13-2024 Hemolytic complement CH50 level [facility] Start: 03-04-2024 Hemolytic complement CH50 level [facility] Start: 11-19-2023 Hemolytic complement CH50 level [facility] Start: 07-18-2023 Hemolytic complement CH50 level [facility] Start: 02-19-2023 Hemolytic complement CH50 level [facility] Start: 10-15-2022 Hemolytic complement CH50 level [facility] Start: 09-26-2022 FUV, Provider: Kenton Lawson, Status: Pen, Time: 9:30 AM FUV, Provider: Kenton Lawson, Status: Pen, Time: 9:30 AM QE-Awsfvjmzssaq-Mllxwf l 5FL DO Work Phone: Start: 05-23-2022 Hemolytic complement CH50 level [facility] Start: 05-02-2022 FUV, Provider: Kenton Lawson, Status: Pen, Time: 9:00 AM FUV, Provider: Kenton Lawson, Status: Pen, Time: 9:00 AM GK-Nynpucrunssb-Yyeyig l 5FL DO Work Phone: Start: 02-15-2022 End: 02-15-2022 [facility] Work Phone: Start: 02-15-2022 Cystoscopy OR Cysto/Retro/Stent/Stone /Holmium Laser (Right) [facility] Start: 02-15-2022 Diagnostic radiograp hy of abdomen XR KUB [facility] Start: 02-15-2022 End: 02-15-2022 Admission to same day surgery center Departed Surgical Day Care [facility] [place] Start: 02-13-2022 End: 02-13-2022 Patient encounter procedure Departed Clinical [facility] Qen-Vxw-Yvxuksvv Testing Start: 01-19-2022 End: 01-19-2022 [facility] Work Phone: Start: 01-15-2022 FUV, Provider: Kenton Lawson, Status: Pen, Time: 10:00 AM FUV, Provider: Kenton Lawson, Status: Pablo, Time: 10:00 AM NC-Jbnsbupvolfw-Bajccm l 5FL DO Work Phone: Start: 11-08-2021 Patient encounter procedure [facility] Start: 09-27-2021 End: 09-28-2022 Sodium Chloride 0.9% Injectable Flush Peripheral Line ; via Peripheral LineVolume = 10 mL IntraVenous Flush Every 8 Hours and as Needed Start: 27-Sep-2021 End: 27-Sep-2022 Ordered: 27-Sep-2021 Timothy Steinberg [facility] Start: 09-27-2021 End: 09-28-2022 oxyCODONE Immediate Release 10 mg Oral Tablet Every 4 Hours ; Tablet (OXYIR, ROXICODONE)DOSE = 10 mg Oral Every 4 Hours, PRN Pain - Severe (7-10) Start: 27-Sep-2021 End: 27-Sep-2022 Ordered: 27-Sep-2021 Timothy Steinberg [facility] Start: 09-26-2021 End: 09-27-2022 [facility] Comment on above: 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 Start: 09-26-2021 [facility], Provider: Sal Richardson, Status: Pablo, Time: 7:30 AM [facility], Provider: Sal Richardson, Status: Pablo, Time: 7:30 AM HJ-Yjqhceyedafzxb-Epu for Perioperative Med Work Phone: Start: 08-30-2021 [facility], Provider: Sal Richardson, Status: Pablo, Time: 11:15 AM [facility], Provider: Sal Richardson, Status: Pablo, Time: 11:15 AM WB-Qvbudndbtuxg-Efqfxx 210 Work Phone: Start: 08-30-2021 [facility], Provider: Sal Richardson, Status: Pablo, Time: 11:00 AM [facility], Provider: Sal Richardson, Status: Pablo, Time: 11:00 AM XY-Vpzhtgmdaxtz-Nkwhwc 210 Work Phone: Start: 06-09-2021 [facility], Provider: Sal Richardson, Status: Pen, Time: 7:30 AM [facility], Provider: Sal Richardson, Status: Pen, Time: 7:30 AM FV-Libysbyyijymev-Nmx for Perioperative Med Work Phone: Start: 03-22-2021 [facility], Provider: Nazario Holloway, Status: Pen, Time: 9:40 AM [facility], Provider: Nazario Holloway, Status: Pen, Time: 9:40 AM [facility] Work Phone: Start: 03-13-2021 [facility], Provider: Sal Richardson, Status: Pen, Time: 2:15 PM [facility], Provider: Sal Richardson, Status: Pen, Time: 2:15 PM LC-Oxgjlmcejzls-Snfopp 210 Work Phone: Start: 1961 Skin Cancer Screening Skin Cancer Sc reening [facility] Start: 1960 Medicare Annual Wellness (AWV) Medicare Annual Wellness (AWV) [facility] Start: 1961 Screening for malign ant neoplasm of colon [facility] Complement C3 [Mass/volume] in Serum or Plasma [facility] Work Phone: Complement C3 [Mass/volume] in Serum or Plasma [facility] Complement C3 [Mass/volume] in Serum or Plasma [facility] Complement C3 [Mass/volume] in Serum or Plasma [facility] Complement C3 [Mass/volume] in Serum or Plasma [facility] Complement C3 [Mass/volume] in Serum or Plasma [facility] Complement C4 [Mass/volume] in Serum or Plasma [facility] Work Phone: Complement C4 [Mass/volume] in Serum or Plasma [facility] Complement C4 [Mass/volume] in Serum or Plasma [facility] Complement C4 [Mass/volume] in Serum or Plasma [facility] Complement C4 [Mass/volume] in Serum or Plasma [facility] Complement C4 [Mass/volume] in Serum or Plasma [facility] ECG 12 lead ECG 12 lead ECG Routine Pre-op exam 02/02/2025 11:01 AM EDT [facility] Hemolytic complement CH50 level [facility] Work Phone: Patient referral [facility] Work Phone: Immunizations Immunization Date Immunization Notes Care Provider Fa cili 04-12-2023 Influenza, injectabl e, Madin Charissa Canine Kidney, preservative free, quadrivalent Theresa Paystrup RV DETAILER Work Phone: [facility] 04-12-2023 influenza virus vaccine, unspecified formulation Theresa Paystrup RV DETAILER Work Phone: [facility] 03-27-2022 influenza virus vaccine, unspecified formulation Arely LOGAN [facility] 03-27-2022 Influenza, injectabl e, Madin Green[place] Canine Kidney, preservative free, quadrivalent Theresa Paystrup RV DETAILER Work Phone: [facility] 11-21-2021 SARS-CoV-2 mRNA (khiqmsrkrlz-tmav-xcki ose) vaccine Arely DOREEN [facility] 09-22-2021 SARS-CoV-2 (COVID-19 ) mRNA BNT-162b2 vax Arely DOREEN [facility] 06-26-2021 Pfizer-BioNTech COVID-19 Vacc 30 MCG/0.3ML Intramuscular Suspension Dania Armstrong Work Phone: [facility] 05-01-2021 influenza virus vaccine, unspecified formulation Shun MACHADO [facility] 05-01-2021 Influenza, injectabl e, Madin Charissa Canine Kidney, preservative free, quadrivalent Dania Armstrong Work Phone: DE-Vabqfwztmxml-Zxh man 210 Work Phone: 10-06-2020 Pfizer-BioNTech COVID-19 Vacc 30 MCG/0.3ML Intramuscular Suspension No PCP None [facility] 09-13-2020 Pfizer-BioNTech COVID-19 Vacc 30 MCG/0.3ML Intramuscular Suspension No PCP None [facility] 06-24-2020 SARS-CoV-2 (COVID-19 ) mRNA BNT-162b2 vax Arely LOGAN [facility] 05-04-2020 influenza virus vaccine, unspecified formulation Shun MACHADO [facility] 05-04-2020 Influenza, injectabl e, Madin Charissa Canine Kidney, preservative free, quadrivalent No PCP None UZ-Ulntvqxnisdv-Oyx man 210 Work Phone: 05-04-2020 pneumococcal conjuga te vaccine, 13 valent No PCP None [facility] 04-06-2020 influenza virus vaccine, unspecified formulation Shun MACHADO [facility] 04-06-2020 influenza, seasonal, injectable No PCP None UI-Wkvhtvtcxqrz-Kiz man 210 Work Phone: 10-25-2011 hepatitis A vaccine, adult dosage No PCP None [facility] 10-25-2011 hepatitis B vaccine, pediatric or pediatric/adolescent dosage No PCP None [facility] 03-30-2011 hepatitis A vaccine, adult dosage No PCP None [facility] 03-30-2011 hepatitis B vaccine, pediatric or pediatric/adolescent dosage No PCP None [facility] 02-15-2011 hepatitis B vaccine, pediatric or pediatric/adolescent dosage No PCP None [facility] 01-20-1998 hepatitis B vaccine, adult dosage No PCP None [facility] 02-24-1997 hepatitis B vaccine, adult dosage No PCP None [facility] 11-11-1996 hepatitis B vaccine, adult dosage No PCP None [facility] 11-02-1996 TD(adult) unspecifie d formulation; Translations: [Td(adult) unspecified formulation] No PCP None [facility] NEGATED: Highlighted row has not occurred!04-15-2019 influenza virus vaccine, unspecified formulation Arely LOGAN [facility] Payers Date Payer Category Payer Self-pay [id number] 2022 Medicaid [employer] MEDICARE A DVANTAGE [id number] 2022 Medicare [id number] 1960 Unknown [id number] 2.840.1.494578.3.579.2.356 1961 Unknown [id number] 2.16840.1.454081.3.579.2.356 1961 Unknown [id number] 2.16840.1.748761.3.579.2.356 1961 Unknown [id number] 2.16840.1.817915.3.579.2.356 1961 Unknown [id number] 2.16840.1.465619.3.579.2.356 1961 Unknown [id number] 2.16840.1.567193.3.579.2.356 1961 Unknown [id number] 2.16.840.1.978204.3.579.2.356 1961 Unknown [id number] 2.16.840.1.158449.3.579.2.356 1961 Unknown [id number] 2.16.840.1.645680.3.579.2.356 1961 Unknown [id number] 2.16.840.1.727575.3.579.2.356 1961 Unknown [id number] 2.16.840.1.512018.3.579.2.356 1961 Unknown [id number] 2.16.840.1.968206.3.579.2.356 1961 Unknown [id number] 2.16.840.1.316812.3.579.2.356 1961 Unknown [id number] 2.16.840.1.281719.3.579.2.356 1961 Unknown [id number] 2.16.840.1.523700.3.579.2.593 1961 Unknown [id number] 2.16.840.1.623365.3.579.2.593 1961 Unknown [id number] 2.16.840.1.609000.3.579.2.593 1961 Unknown [id number] 2.16.840.1.626623.3.579.2.593 1961 Unknown [id number] 2.16.840.1.426226.3.579.2.593 1961 Unknown [id number] 2.16.840.1.631363.3.579.2.593 1961 Unknown [id number] 2.16.840.1.184884.3.579.2.593 1961 Unknown [id number] 2.16.840.1.973672.3.579.2.593 1961 Unknown [id number] 2.16.840.1.880439.3.579.2.593 1961 Unknown [id number] 2.16.840.1.157406.3.579.2.593 1961 Unknown [id number] 2.16.840.1.418341.3.579.2.593 1961 Unknown [id number] 2.16.840.1.091574.3.579.2.593 1961 Unknown [id number] 2.16.840.1.251386.3.579.2.593 1961 Unknown [id number] 2.16.840.1.055769.3.579.2.593 1961 Unknown [id number] 2.16.840.1.667550.3.579.2.593 1961 Unknown [id number] 2.16.840.1.503929.3.579.2.593 1961 Unknown [id number] 2.16.840.1.712650.3.579.2.593 1961 Unknown [id number] 2.16.840.1.205219.3.579.2.593 1961 Unknown [id number] 2.16.840.1.741019.3.579.2.593 1961 Unknown [id number] 2.16.840.1.516734.3.579.2.1314 1961 Unknown [id number] 2.16.840.1.147042.3.579.2.1259 1961 Unknown [id number] 2.16.840.1.400035.3.579.2.727 1961 Unknown [id number] 2.16.840.1.867217.3.579.2.727 1959 Unknown [id number] 1959 Unknown [id number] Unknown Unknown MMO [id number] Unknown [id number] Unknown [employer] Sa[employer] [id number] Unknown [id number] 2.16.840.1.203700.3.579.2.531 Unknown [id number] 2.16.840.1.015480.3.579.2.531 Social History Date Type Detail Facility [facility] Start: 07-14-2024 Tobacco smoking consumption unknown [facility] Start: 01-24-2022 End: 02-15-2022 Tobacco smoking status Never smoked tobacco (finding) [facility] Work Phone: Tobacco smoking status Never [facility] Start: 02-02-2025 Sex Assigned At Male [facility] Start: 1960 Sex Assigned At Male [facility] Start: 07-14-2024 Alcohol intake Alcohol Use Details [facility] Start: 10-17-2022 Sexual Orientation Choose not to disclose [facility] Start: 10-14-2024 Sex Male (finding) [facility] Start: 1960 Sex assigned at Not on file [facility] Start: 02-02-2025 Tobacco use and exposure Smokeless tobacco non-user [facility] Start: 02-02-2025 Alcoholic beverage intake Ex-drinker (finding) [facility] Start: 02-02-2025 History of Social function [facility] Medical Equipment Procedure Code Equipment Code Equipment Origin al Text Equipment Identifier Dates Cystoscopy, with ureteral calculus manipulation and stent placement Polymeric ureteral stent [id number] FDA Start: 02-15-2022 Cystoscopy, with ureteral calculus manipulation and stent placement Polymeric ureteral stent [id number] FDA Start: 01-19-2022 Goals Date Patient Goal Desired Activity /State Functional Status Date Assessment Result Facility 02-02-2025 Patient Health Quest ionnaire 2 item (PHQ-2) [Reported] [facility] 04-13-2024 Functional Status N/A [facility] 04-08-2023 Functional Status N/A [facility] 10-16-2022 Functional Status N/A [facility] 10-02-2022 Functional Status N/A [facility] 01-30-2022 Functional Status N/A [facility] 01-24-2022 Functional Status N/A General [facility] gabrielle Schultz Functional observable [facility] Mental Status Date Assessment Result Facility 09-26-2021 Cognitive functions 27-Sep-19 2212:26 [facility] Clinical Notes 10-31-2020 to 04-13-2024 Note Date [...] include: ?8 oz (237 mL) of milk, dvliaxn-khjikgvoxpjt-yyplf milk, and calcium-fortifiedfruit juice. Calcium-fortified means that [...] ?Spinach (cooked), rhubarb, beets, sweet potatoes, and [place] chard. ?Peanuts. ?Potato chips, citizen of [place] fries, and baked potatoes with skin on. ?Nuts and nut products. ?Chocolate. If you regularly take a diuretic medicine, make sure to eat at least 1 or 2 servings of fruits or vegetables that are high in potassium each day. These include: ?Avocado. ?Banana. ?Jeddo, prune, carrot, or tomato juice. ?Baked potato. [...] magnesium, fish oil, or vitamin B6. Take otqz-gra-ovqznye and prescription medicines only as told by [...] Casseroles. Pizza. Lasagna. Frozen meals. Potato chips. Mosotho fries. The items listed above may not [...] provider. Document Revised: 09/20/2022 Document Reviewed: 09/20/2022 [employer] Patient Education 2023 [employer] Follow Up Care 04/08/2023 11:14:40 With:CHRIS RIVERA, Shun Mirza, URL Address: Josy ERNST [address] [address]- When: Unknown [facility] Maddy 04-13-2024 Note Patient Education Nephrology Dietary Guidelines [...] ? 8 oz (237 mL) of milk, fqdwbmx-bxqbfmomfgks-iwmef milk, and calcium-fortifiedfruit juice. Calcium-fortified means that [...] Spinach (cooked), rhubarb, beets, sweet potatoes, and [place] chard. ? Peanuts. ? Potato chips, citizen of [place] fries, and baked potatoes with skin on. ? Nuts and nut products. ? Chocolate. ? If you regularly take a diuretic medicine, make sure to eat at least 1 or 2 servings of fruits or vegetables that are high in potassium each day. These include: ? Avocado. ? Banana. ? Jeddo, prune, carrot, or tomato juice. ? Baked [...] fish oil, or vitamin B6. ? Take zaet-daf-mnysjym and prescription medicines only as told by your health care provider. These include suppleme (more content not included)... [facility] 09-19-2023 History of Presen t illness Narrative Encounter Date Shoulder Knee [facility] Work Phone: 1(868) 630-913110-16-2023 Hospital Discharge instructions Patient Education 04/08/2023 11:15:31 [...] include: ?8 oz (237 mL) of milk, xbyzlif-kehbzbpqstuy-ptgkt milk, and calcium- fortifiedfruit juice. Calcium-fortified means [...] ?Spinach (cooked), rhubarb, beets, sweet potatoes, and [place] chard. ?Peanuts. ?Potato chips, citizen of [place] fries, and baked potatoes with skin on. ?Nuts and nut products. ?Chocolate. If you regularly take a diuretic medicine, make sure to eat at least 1 or 2 servings of fruits or vegetables that are high in potassium each day. These include: ?Avocado. ?Banana. ?Jeddo, prune, carrot, or tomato juice. ?Baked potato. [...] magnesium, fish oil, or vitamin B6. Take uqxo-fgz-hvoaobq and prescription medicines only as told by [...] Casseroles. Pizza. Lasagna. Frozen meals. Potato chips. Mosotho fries. The items listed above may not [...] provider. Document Revised: 02/19/2022 Document Reviewed: 02/19/2022 [employer] Patient Education 2022 [employer] Follow Up Care 10/16/2022 15:04:55 With:CHRIS RIVERA, Shun Mirza, URL Address: [address] [place], [place] [id number]- When: Unknown [facility] Maddy [id number] NoteHNO ID: [id number] Author: Antwan Soriano MD Service: ? Author [...] next visit: No PCP: Dania Armstrong MD [facility] [id number] FELLOW / RESIDENT: No fellow or resident assisted in this office visit. Antwan Soriano, [facility]04-25-2023 Hospital Discharge instructions Patient Education 10/16/2022 [...] include: ?8 oz (237 mL) of milk, gnhhtnn-wxqvdkvtsyhl-apjmi milk, and calcium- fortifiedfruit juice. Calcium-fortified means [...] ?Spinach (cooked), rhubarb, beets, sweet potatoes, and [place] chard. ?Peanuts. ?Potato chips, citizen of [place] fries, and baked potatoes with skin on. ?Nuts and nut products. ?Chocolate. If you regularly take a diuretic medicine, make sure to eat at least 1 or 2 servings of fruits or vegetables that are high in potassium each day. These include: ?Avocado. ?Banana. ?Jeddo, prune, carrot, or tomato juice. ?Baked potato. [...] magnesium, fish oil, or vitamin B6. Take uwvo-wub-uoqkjio and prescription medicines only as told by [...] Casseroles. Pizza. Lasagna. Frozen meals. Potato chips. Mosotho fries. The items listed above may not [...] provider. Document Revised: 02/19/2022 Document Reviewed: 02/19/2022 [employer] Patient Education 2022 [employer]. Follow Up Care 02/19/2022 10:35:10 With:CHRIS RIVERA, Shun Mirza, URL Address: [address] [facility] [address] [place], [place] [id number]- When: Unknown [facility] Maddy [id number] NotePROCEDURE: XR FOOT RT MIN 3 VIEWS [...] Electronically authenticated by: LAURY ZEPEDA Date: 2022-08-16 18:55[facility]01-26-2023 NotePROCEDURE: XR FOOT RT MIN 3 VIEWS [...] Electronically authenticated by: LAURY ZEPEDA Date: 2022-07-19 12:30[facility]01-13-2023 NotePROCEDURE: XR FOOT RT MIN 3 VIEWS [...] Electronically authenticated by: LAURY ZEPEDA Date: 2022-07-06 15:41[facility]12-15-2022 NotePROCEDURE: XR ANKLE RT MIN 3 VIEWS, [...] Electronically authenticated by: BANDAR SAENZ Date: 2022-06-07 14:32[facility]12-15-2022 NotePROCEDURE: XR ANKLE RT MIN 3 VIEWS, [...] Electronically authenticated by: BANDAR SAENZ Date: 2022-06-07 14:32[facility]08-09-2022 Hospital Discharge instructions Patient Education 01/30/2022 09:28:00 [...] include: ?Spinach. ?Rhubarb. ?Beets. ?Potato chips and citizen of [place] fries. ?Nuts. If you regularly take a diuretic medicine, make sure to eat at least 1 2 fruits or vegetables high in potassium each day. These include: ?Avocado. ?Banana. ?Jeddo, prune, carrot, or tomato juice. ?Baked potato. [...] Casseroles. Pizza. Lasagna. Frozen meals. Potato chips. Mosotho fries. Summary You can reduce your risk [...] 10/05/2011 Document Revised: 09/30/2019 Document Reviewed: 05/21/2017 [employer] Patient Education 2020 [employer]. Follow Up Care 01/24/2022 12:02:31 With:CHRIS RIVERA, Shun Mirza, URL Address: [facility] [address] [place], [place] [id number]- When: Unknown [facility] Maddy [id number] NoteSend Summary: Discharge Summary Providers: Provider RoleProvider Name Sal Perez Nicholas PrimaryHoy, Douglas M Note Recipients: Dania Armstrong MD - [id number] [] Discharge: Summary: Admission Date: .26-Sep-2021 06:01:00 Discharge Date: 27-Sep-2021 Attending Physician at Discharge: Chinmay iMranda Admission Reason: Lumbar stenosis Final Discharge Diagnoses: [...] floor. 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 AT [facility] [address] [facility] 5TH FLOOR ON 10/18/2021 AT 0930 WITH [facility]ON SANTIAGO. REHAB FACILITIES OR HOME CARE MAY REMOVE ANTONIO OR SUTURES. Wound Site: BACK (Lumbar Spine) Wound Type: surgical incision Change Dressing: daily Cleanse With: soap and water Cover With: abdominal dressing Tape With: paper tape Instructions: no lotions, creams, or tub soaks Other Instructions: PLEASE HAVE ANTONIO REMOVED IN 3 WKS. AT [facility] [address] [facility] 5TH FLOOR ON 10/18/2021 AT 0930 WITH [...] to Schedule in: 6 weeks, PLEASE CALL [phone] TO SCHEDULE YOUR APPOINTMENT FOR 5-6 WEEKS FOLLOWING YOUR SURGERY. Location: [facility] [address] [facility] OR [address] [facility] [address], Phone Number: Office: (September,/ME) - [phone] Discharge Medications: Home Medication NIFEdipine 30 mg [...] 1-2 tab(s) orally every (more content not included)...[facility]04-06-2022 NoteRehab: Info: Mode of Treatmentoccupational therapy; co-evaluation with PT for pt safety and to optimize pt's therapeutic potential Time IN10:00 Time OUT10:27 Total Treatment [id number] Patient in ... at end of sessionchair; alarm on Communicated with ... at end of sessionbedside nurse Patient Effortexcellent Symptoms Noted During/After Treatmentnone Patient Profile Reviewedyes Onset of Illness/Injury or Date of [id number] Reason for ReferralXLIF L3/4, 4/5;2. Navigated percutaneous [...] WFL Mobility/Tone: Bed Mobility Assessment/Interventionssupine to sit Utfklr-zo-Khb [place] (Bed Mobility)standby assist; verbal cues Assistive Device (Bed Mobility)bed rails Comment, Bed MobilityVia log rolling technique Transfer Assessment/Interventionssit to stand transfer; stand to sit transfer Sit-Stand [place] (Transfers)standby assist; verbal cues Sit-Stand Assistive Device (Transfers)no AD Stand-Sit [place] (Transfers)standby assist; verbal cues Stand-Sit Assistive Device (Transfers)no AD Safety Issues Impacting Function (Mobility)insight into deficits/self awareness Impairments Impacting Function (Mobility)balance; pain ActivityPt completed functional household distance with SBA for safety (pt declined use of device) ADL: BADL Assessment/Interventionlower body dressing; grooming; toileting [place] Level (Lower Body Dressing)pants/bottoms; moderate assist (50% patient effort) Position (Lower Body Dressing)edge-of-bed sitting [place] Level (Grooming)supervision Position (Grooming)standing Comment (Grooming)Standing oral care at sink [place] Level (Toileting)supervision Position (Toileting)standing Motor: Sitting, Static (Balance)good balance Sitting, Dynamic (Balance)good balance Wvp-kz-Fuvbe (Balance)fair balance Standing, Static (Balance)fair balance Standing, [...] Total Score17 Short Term Goals: Transfer: Established [id number] Transfer: Transfer Type Wennrlo-sr-phlqp/tyguu-xz-lcd; (more content not included)...[facility]04-05-2022 NotePost Operative Note: PreOp Diagnosis: Lumbar stenosis, spondylolisthesis L3-5 Post-Procedure Diagnosis: Lumbar stenosis, spondylolisthesis L3-5 Procedure: ALIF via extreme lateral approach L3/4, L4/5 with cage x 2 PSF with instrumentation L3-5 Surgeon: Dr. Richardson Resident/Fellow/Other Cinnamon Grinder: Renny Steinberg Estimated Blood Loss (mL): 150 [...] Completion Last Updated: 04-Oct-2021 15:17 by Sal Richardson)[facility] 09-26-2021 History of Present illness Narrative* Jay is a pleasant 62-year-old ayrka-chus-eosrdcjw male who presents today with his for [...] not corrected for spelling or grammatical errors. MX-Hfwxchvsrcrc-Ksekqvl 5FL DO Work Phone: 1(681) 212-657204-05-2022 NoteHistory of Present Illness: History Present Illness: [...] the note. I personally evaluated the patient [id number] Electronic Signatures: Sal Richardson) (Signed 29-Sep-2021 11:39) Authored: Note Completion Co-Signer: History of Present Illness, Allergies, Home Medication Review, Impression/Procedure, ERAS, Physical Exam, Consent, Note Completion Timothy Steinberg (Resident)) (Signed 26-Sep-2021 05:59) Authored: History of Present Illness, Allergies, Home Medication Review, Impression/Procedure, ERAS, Physical Exam, Consent, Note Completion Last Updated: 29-Sep-2021 11:39 by Sal Richardson)[facility] 08-25-2021 Reason for referral (narrative)* Reason for Referral: XLIF L3/4, 4/5;2. 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 Richardson Resident/Fellow/Other Cinnamon Grinder: Skip/ Katalina Procedure: anterior cervical discectomy/ decompression, [...] present for the entire procedure Electronic Signatures: aSl Richardson) (Signed 27-Jun-2021 14:14) Authored: Post-Operative Note, Chart Review, Note Completion Co-Signer: Post-Operative Note, Chart Review, Note Completion Ad Valdivia (Resident)) (Signed 21-Jun-2021 11:55) Authored: Post-Operative Note, Chart Review, Note Completion Last Updated: 27-Jun-2021 14:14 by Sal Richardson)[facility] 06-21-2021 NoteHistory & Physical Reviewed: I have [...] the note. I personally evaluated the patient [id number] Electronic Signatures: Sal Richardson) (Signed 27-Jun-2021 13:45) Authored: Note Completion Co-Signer: History & Physical Reviewed, ERAS, Consent, Note Completion Cheikh August (Resident)) (Signed 21-Jun-2021 06:23) Authored: History & Physical Reviewed, ERAS, Consent, Note Completion Last Updated: 27-Jun-2021 13:45 by Sal Richardson)[facility] 12-22-2020 History of Present illness Narrative* Jay [...] for spelling or grammatical errors * . NX-Ycwkqoyrqmsp-Tsyjid 210 Work Phone: 1(984) 180-101105-10-2021 History of Present illness [age]ownr26 yr old male with back pain. 10/31-[facility] Work Phone: [phone]) 832-631805-10-2021 History of Present illness Narrative* 60 yr [...] foot surgeries and total knee replacement. [facility] Work Phone: consult note* Clinical Note Date No Information [facility] Work Phone: Discharge summary* Clinical Note Date No Information [facility] Work Phone: Evaluation + Plan note Future Appointments Appointment Date:01/30/2022 09:15:00 AM Scheduled Provider:Shun MACHADO MD Location:[facility] Appointment Type:URO Office Visit Appointment Date:07/31/2022 02:00:00 PM Scheduled Provider:Arely LOGAN MD [facility] Appointment Type:[place] [id number] [facility] Evaluation + Plan note Future Appointments Appointment Date:07/31/2022 02:00:00 PM Scheduled Provider:Arely LOGAN MD Location: [place] Appointment Type:[place] [address] [facility] Evaluation + Plan note Future Appointments Appointment Date:10/16/2022 02:15:00 PM Scheduled Provider:Shun MACHADO MD Location:[facility] Appointment Type:URO Office Visit Future Scheduled Tests Radiology* XR Abdomen 1 View 02/19/22 [facility] Evaluation + Plan note Future Appointments Appointment Date:02/22/2023 10:45:00 AM Scheduled Provider:Shun MACHADO MD Location:[facility] Appointment Type:URO Office Visit Future Scheduled Tests Radiology* XR Abdomen 1 View 02/19/22 [facility] Evaluation + Plan note Future Appointments Appointment Date:04/13/2024 09:15:00 AM Scheduled Provider:Shun MACHADO MD Location:[facility] Appointment Type:URO Office Visit [facility] evaluation + Plan note Future Appointments Appointment Date:04/12/2025 08:15:00 AM Scheduled Provider:Shun MACHADO MD Location:[facility] Appointment Type:URO Office Visit [facility] evaluation note* Neurological: alert and oriented [id number]: Spine Exam:Dressings CDINo bruising, swelling, or erythemaL1: [...] appearing, no acute distress resting in bed [facility] assessment information available [facility] Work Phone: Evaluation note* Type Assessment Date No Information [facility] Work Phone: Evaluation note* Diagnosis Arthritis of right shoulder- Primary Pre-op exam Raynaud's disease without gangrene Age related osteoporosis, unspecified pathological fracture presence Primary hypertension Unspecified essential hypertension Lupus erythematosus, unspecified form documented in this encounter [facility]* Clinical Note Date No Information [facility] Work Phone: History of Present illness Narrative* [...] not corrected for spelling or grammatical errors. [facility] Work Phone: Hospital course Narrative No data available for this section [facility] Discharge instructions* Activity:activity as tolerated and [...] PLEASE HAVE ANTONIO REMOVED IN 3WKS. AT [facility] [id number] [facility] FLOOR ON 10/18/2021 AT 0930 WITH [facility]ON SANTIAGO.REHAB FACILITIES OR HOME CARE MAY REMOVE ANTONIO OR SUTURES. * Wound Care 2:Wound Site: BACK (Lumbar Spine)Wound Type: surgical incisionChange Dressing: dailyCleanse With: soap and waterCover With: abdominal dressingTape With: paper tapeInstructions: no lotions,creams, or tub soaksOther Instructions: PLEASE HAVE ANTONIO REMOVED IN 3 WKS. AT [facility] [id number] [facility] FLOOR ON 10/18/2021 AT 0930 WITH [...] to Schedule in: 6 weeks, PLEASE CALL [phone] TO SCHEDULE YOUR APPOINTMENT FOR 5-6 WEEKS FOLLOWING YOUR SURGERY.[address] OR [address] [place] [address]/ [facility] [address], [phone] Number: Office: (September,./[place]) - [phone]: Please Call Emmie Gallagher RN at [phone] For Any Post-Op Questions [facility] No data available for this section [facility] Instructions* Date Instruction Additional Infor mation No Information [facility] Work Phone: Progress note No data available for this section [facility] Progress note* Clinical Note Date No Information [facility] Work Phone: Rexwqc for referral (narrative)* Reason For Referral No Information [facility] Work Phone: Recxdi for referral (narrative)No reason for referral [facility] Work Phone: Summary Purpose Family History No [...] weeks. He lives far away, in the [facility]. If he gets better with the injections, perhaps we can watch [id number] and this is obviously what we are [...] weeks. He lives far away, in the [facility]. If he gets better with the injections, perhaps we can watch [id number] and this is obviously what we are [...] spine from 04/12/2021 is available from the [facility] on a CD. This [...] section and content) DATE CREATED AUTHOR 01/14/2021 [facility] DATE CREATED AUTHOR AUTHOR'S ORGANIZ ATION 03/11/2021 [facility] DATE CREATED AUTHOR AUTHOR'S ORGANIZ ATION 08/06/2021 [facility] DATE CREATED AUTHOR AUTHOR'S ORGANIZ ATION 05/03/2022 [facility] DATE CREATED AUTHOR AUTHOR'S ORGANIZ ATION 05/05/2022 [facility] DATE CREATED AUTHOR AUTHOR'S ORGANIZ ATION 11/30/2022 [facility] DATE CREATED AUTHOR AUTHOR'S ORGANIZ ATION 03/14/2023 [facility] DATE CREATED AUTHOR AUTHOR'S ORGANIZ ATION 07/16/2024 [facility] DATE CREATED AUTHOR AUTHOR'S ORGANIZ ATION 02/03/2025 [facility] DATE CREATED AUTHOR AUTHOR'S ORGANIZ ATION 03/15/2025 [facility] DATE CREATED AUTHOR AUTHOR'S ORGANIZ ATION 03/30/2025 [facility] <item> Privacy Markings (unrecogniz ed section and content) Section Author: Arthur Patten PROHIBITION ON REDISCLOSURE OF CONFIDENTIAL INFORMATION This notice accompanies a disclosure of information concerning a client made to you with the consent of such client. Care Team (unrecognized sect ion and content) Team Status: Active Member Role Status Dates Dania Armstrong MD Primary Care Provider Active Team Status: Inactive Member Role Status Dates Dania Armstrong MD Primary Care Provider Active Start: October 13, 2024 End: October 13, 2024 TDA Nielsen Attending Provider Active Start: October 13, 2024 End: October 13, 2024 Team Status: Active Member Role Status Dates Dania Armstrong MD Primary Care Provider Active Start: December 27, 2023 Honorio Luo DO Attending Provider Active Sta rt: December 27, 2023 Team Status: Inactive Member Role Status Dates Dania Armstrong MD Primary Care Provider Active Start: [...] (start - stop) Status Members No Information Aligner Relationship Specialty Start Date End Date Unallocated, Christina Murray MD [facility] [place] [address] PCP - General Family Medicine 07/08/23 Aligner Relationship Specialty Start Date End Date Unallocated, Christina Murray MD [facility] [place] [facility] [facility] [place] [address] PCP - General Family Medicine 07/08/23 Aligner Relationship Specialty Start Date End Date Unallocated, Christina Murray MD [facility] [place] [facility] [address] PCP - General Family Medicine 07/08/23 Team Status: Inactive Member Role Status Gary Armstrong MD Primary Care Provider Active Start: March 01, 2025 End: March 01, 2025 TAD Nielsen Attending Provider Active Start: March 01, 2025 End: March 01, 2025 Goals (unrecognized section and content) Goals may be documented in a n alternate section Reason for Visit (unrecogniz ed section and content) Reason Comments Pre-op Exam Pre op exam FOR RECORDS PERTAINING TO PATIENTS WHO ARE [...] BE BASED ON THE PRIMARY CLINICAL RECORDS. [facility] provides no warranty or guarantee of the accuracy or completeness of information in this document.
[2025-04-02 09:25] LABS: Hematocrit 42.7 % (42.0-54.0); Hemoglobin 14.5 g/dL (14.0-18.0); Immature Granulocytes Abs Auto 0.01 10^3/uL (0.00-0.03); Immature Granulocytes Pct Auto 0.2 % (0.0-0.5); Lymphocytes Absolute Auto 1.0 10^3/uL (1.2-3.8); Mean Corpuscular HGB Conc 34.0 g/dL (29.9-35.2); Mean Corpuscular Hemoglobin 32.4 pg (25.9-34.0); Mean Corpuscular Volume 95.5 fL (80.0-94.0); Platelet Count 237 10^3/uL (150-450); Red Blood Count 4.47 10^6/uL (4.70-6.10); White Blood Count 5.4 10^3/uL (4.0-11.0)
[2025-04-02 15:19] LABS: Alanine Aminotransferase 43 U/L (16-63); Albumin Globulin Ratio 1.1; Albumin Level 3.7 g/dL (3.4-5.0); Alkaline Phosphatase 116 U/L (46-116); Anion Gap 11.7; Aspartate Amino Transferase 31 U/L (15-37); Blood Urea Nitrogen 14.0 mg/dL (7.0-18.0); Calcium 8.8 mg/dL (8.5-10.1); Carbon Dioxide 28.6 mmol/L (21.0-32.0); Chloride 104 mmol/L (98-107); Cholesterol 177 mg/dL (<=200); Estimated GFR (African America >60 (>=60 mL/min/1.73m^2); Estimated GFR (Non-African Ame >60 (>=60 mL/min/1.73m^2); Free T3 1.85 pg/mL (2.18-3.98); Globulin 3.5 g/dL; Glucose 102 mg/dL (74-106); HDL Cholesterol 44 mg/dL (40-60); Potassium 4.3 mmol/L (3.5-5.1); Sodium 140 mmol/L (136-145); Thyroid Stimulating Hormone 1.578 uIU/mL (0.358-3.740); Total Protein 7.2 g/dL (6.4-8.2); Triglycerides 102 mg/dL (<=150); Uric Acid 4.9 mg/dL (3.5-7.2); VLDL CHOLESTEROL 20.4 mg/dL
== END 2025-04-02 08:06 | disposition home or self-care (01) ==
LOC: LAB 08:09
PROVIDERS: PCP Family Medicine; Visit Provider Family Medicine
DX: Z00.00 Encounter for general adult medical examination without abnormal findings (principal); E78.5 Hyperlipidemia, unspecified; R73.09 Other abnormal glucose; M10.9 Gout, unspecified; E03.9 Hypothyroidism, unspecified; I10 Essential (primary) hypertension; Z12.5 Encounter for screening for malignant neoplasm of prostate; D50.9 Iron deficiency anemia, unspecified
CPT/HCPCS: 36415; 80053; 80061; 83036; 83525; 84403; 84436; 84443; 84481; 84550; 85025; G0103

== ENCOUNTER 2025-04-12 14:33 | Outpatient (OUT) | payer MEDICARE, SELFPAY ==
--- OUTSIDE RECORDS SUMMARY | 2025-04-12 14:50 | XMS_ITS | CCD ---
Author Organization [facility] Care Team Providers Care 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 Name Role Phone None, No PCP Unavailable Unavailable Unavailable Unavailable Dania Armstrong M Unavailable Dania Armstrong M Unavailable Sal Richardson Unavailable Kenton Lawson Randy Unavailable Unavailabl e Leandra Dania Primary Care Physician MD Dania Armstrong Primary Care Provider [phone] MD Shun Machado Attending Provider [phone] DEBRA, Dr. SAL COLEMAN Attending Unavail able [...] able MD Dania Armstrong Primary Care Provider MD Dmitriy De Leon Attending Provider [phone] MD Dania Armstrong Primary Care Provider [phone] MD Dmitriy De Leon Attending Provider JENI SAEED Admitting Unavailable ZIEBMALIKA, DR LAURY [...] Dania Armstrong MD Primary Care Provider Obermeymalika FRONT END DEVELOPER-C, Sabrina Langley Attending Provider Unallocated , Noms Provider Primary Care Provi vishal THERESA LANGE Attending Unavailable Dania Armstrong MD Primary Care Provider Obermdoug SAVAGE-C, Sabrina Langley Attending Provider Dania Armstrong Primary Care Unavailable ObSabrina almeida Admitting Unavailable ObSabrina almeida Attending Unavailable Dania Armstrong Primary Care Unavailable ObSabrina almeida Admitting Unavailable ObSabrina almeida Attending Unavailable Shun MACHADO Attending Unavailable Shun MACHADO Attending Unavailable Allergies Allergy Classification Reported Allergen(s) Allergy Type Date of Onset Reaction(s) Facility (18 sources) Penicillins; Translations: [Penicillins] Allergy to drug (finding) 7 Rash [facility] Work Phone: (7 sources) Penicillin; Translations: [penicillin] Drug Allergy Eruption of skin (disorder) [facility] (2 sources) oxyCODONE Drug Allergy 1 [facility] (2 sources) Penicillins Drug allergy (disorder) 7 [facility] (2 sources) Penicillins Drug Allergy 7 [facility] (1 source) Penicillins Drug allergy (disorder) 2 [facility] Repository Medications Current Medications Medication Drug Class(es) [...] for 30 day(s), 120 tab(s), Refill(s) 11, [facility], 170, cm, 10/16/22 14:31:00 EDT, Height/Length [...] activity., # 30 tab(s), Refills(s) 3, Pharmacy: [facility], 170, cm, 10/16/22 14:31:00 EDT, Height/Length [...] 09-27-2021 Episodic Other aftercare (2 sources) Other m[facility] (current) drug therapy; Translations: [Other m[facility] (current) drug therapy] Onset: 06-02-2021 Episodic Other [...] ALT [Catalytic activity/Vol] 24 U/L Normal 7-52 [facility] Comment on above: Performed By: #### C 4, CH50, C3 #### [facility] , #### CBC, ADDONUAPLUS, ESR, CMP, CRP #### [facility] [address] [place] [address] [place] Albumin [Mass/volume] in Ser um or Plasma by Bromocresol green (BCG) dye binding methoOrdered By: Sabrina Manriquez on 03-01-2025 Albumin BCG dye [Mass/Vol] 4.1 g/dL 3.5-5.7 [facility] Alkaline phosphatase [Enzyma tic activity/volume] in Serum or PlasmaOrdered By: Sabrina Manriquez on 03-01-2025 ALP [Catalytic activity/Vol] 105 U/L High 34-104 [facility] Comment on above: Performed By: #### C 4, CH50, C3 #### [facility] , #### CBC, ADDONUAPLUS, ESR, CMP, CRP #### [facility] [address] Appearance of UrineOrdered B y: Sabrina Manriquez on 03-01-2025 Appearance (U) Clear Normal Clear [facility] Comment on above: Order Comment: Name Collection Type:: Clean-Voided Midstream Performed By: #### C 4, CH50, C3 #### [facility] , #### CBC, ADDONUAPLUS, ESR, CMP, CRP #### [facility] [address] [place] [address] Aspartate aminotransferase [ Enzymatic activity/volume] in Serum or PlasmaOrdered By: Sabrina Manriquez on 03-01-2025 AST [Catalytic activity/Vol] 21 U/L Normal 13-39 [facility] Comment on above: Performed By: #### C 4, CH50, C3 #### [facility] , #### CBC, ADDONUAPLUS, ESR, CMP, CRP #### [address] Bacteria [Presence] in Urine by AutomatedOrdered By: Sabrina Manriquez on 03-01-2025 Bacteria Auto Ql (U) None seen [HPF] None Seen [facility] Basophils [#/volume] in Bloo d by Automated countOrdered By: Sabrina Manriquez on 03-01-2025 Basophils (Bld) [#/Vol] 0.1 10*3/uL Normal 0.0-0.2 [facility] Comment on above: Performed By: #### C 4, CH50, C3 #### [facility] , #### CBC, CRP, ESR, CMP, ADDONUAPLUS #### [place] [address] [place] Basophils/100 leukocytes in Blood by Automated countOrdered By: Sabrina Manriquez on 03-01-2025 Basophils/100 WBC (Bld) 0.7 % Normal . [facility] Comment on above: Performed By: #### C 4, CH50, C3 #### [facility] , #### CBC, CRP, ESR, CMP, ADDONUAPLUS #### [address] Bilirubin Test strip Ql (U)O rdered By: Sabrina Manriquez on 03-01-2025 Bilirubin Ql (U) Negative Negative [facility] Bilirubin.total [Mass/volume ] in Serum or PlasmaOrdered By: Sabrina Manriquez on 03-01-2025 Bilirubin [Mass/Vol] 0.5 mg/dL Normal 0.3-1.0 [facility] Comment on above: Performed By: #### C 4, CH50, C3 #### [facility] , #### CBC, ADDONUAPLUS, ESR, CMP, CRP #### [facility] [address] [place] [id number] [place] C reactive protein [Mass/vol ume] in Serum or PlasmaOrdered By: Sabrina Manriquez on 03-01-2025 CRP [Mass/Vol] < 0.5 mg/dL 0.0-0.5 [facility] C-Reactive Proteinon 025 CRP [Mass/Vol] mg/L Normal 0.0-0.5 [facility] Comment on above: Result Comment: PERF ORMED BY: [place] [address] PATHOLOGIST REFINERY PIPELINE OPERATOR ALBANIA WAGNER M.D. Performed By: #### C 4, CH50, C3 #### [facility] , #### CBC, CRP, ESR, CMP, ADDONUAPLUS #### [facility] [address] [place] [address] [place] Calcium [Mass/volume] in Ser um or PlasmaOrdered By: Sabrina Manriquez on 03-01-2025 Calcium [Mass/Vol] 9.0 mg/dL Normal 8.6-10.3 [facility] Comment on above: Performed By: #### C 4, CH50, C3 #### [facility] , #### CBC, ADDONUAPLUS, ESR, CMP, CRP #### [facility] [address] [place] [address] [place] Carbon dioxide, total [Moles /volume] in Serum or PlasmaOrdered By: Sabrina Manriquez on 03-01-2025 CO2 [Moles/Vol] 30.1 mmol/L Normal 21.0-31.0 [facility] Comment on above: Performed By: #### C 4, CH50, C3 #### [facility] , #### CBC, ADDONUAPLUS, ESR, CMP, CRP #### [place] [address] [place] Chloride [Moles/volume] in S lenny or PlasmaOrdered By: Sabrina Manriquez on 03-01-2025 Chloride [Moles/Vol] 103 mmol/L Normal 98-107 [facility] Comment on above: Performed By: #### C 4, CH50, C3 #### [facility] , #### CBC, ADDONUAPLUS, ESR, CMP, CRP #### [address] Color of Urine by AutoOrdere d By: Sabrina Manriquez on 03-01-2025 Color (U) Yellow Normal Yellow [facility] Comment on above: Order Comment: Name Collection Type:: Clean-Voided Midstream Performed By: #### C 4, CH50, C3 #### [facility] , #### CBC, ADDONUAPLUS, ESR, CMP, CRP #### [facility] [address] [place] [address] Complement C3on 03-01-2025 Complement C3 160 mg/dL Normal 82-167 [facility] Comment on above: Result Comment: Perf ormed at: - [facility] [address] [id number] Loan Supervisor: Derek Toscano PhD, Phone: [phone] Performed By: #### C 4, CH50, C3 #### [facility] , #### CBC, CRP, ESR, CMP, ADDONUAPLUS #### [facility] [address] [place] [address] Complement C4on 03-01-2025 Complement C4 30 mg/dL Normal 12-38 [facility] Comment on above: Result Comment: PERF ORMED BY: [place] [address] PATHOLOGIST REFINERY PIPELINE OPERATOR ALBANIA WAGNER M.D. Performed By: #### C 4, CH50, C3 #### [facility] , #### CBC, CRP, ESR, CMP, ADDONUAPLUS #### [address] Complement Total (CH50)on Complement Total (CH50) 52 Normal >41 [facility] Comment on above: [...] determine out of range values. Performed at: [facility] [address] [id number] Loan Supervisor: Derek Toscano PhD, Phone: [phone] PERFORMED BY: [place] [address] PATHOLOGIST REFINERY PIPELINE OPERATOR ALBANIA WAGNER M.D. Performed By: #### C 4, CH50, C3 #### [facility] , #### CBC, CRP, ESR, CMP, ADDONUAPLUS #### [address] Complete Blood Count Auto Di ffon 03-01-2025 Mean Corpuscular HGB Conc 33.7 g/dL Normal 32.5-35.6 [facility] Comment on above: Performed By: #### C 4, CH50, C3 #### [facility] , #### CBC, CRP, ESR, CMP, ADDONUAPLUS #### [address] NRBC% 0.0 /100{WBC} Normal 0-0.5 [facility] Comment on above: Performed By: #### C 4, CH50, C3 #### [facility] , #### CBC, CRP, ESR, CMP, ADDONUAPLUS #### [address] White Blood Count 6.7 [CFU]/mL Normal 4.1-10.5 [facility] Comment on above: Performed By: #### C 4, CH50, C3 #### [facility] , #### CBC, CRP, ESR, CMP, ADDONUAPLUS #### [address] Comprehensive Metabolic Pane tanika 03-01-2025 Albumin [Mass/Vol] 4.1 g/dL Normal 3.5-5.7 [facility] Comment on above: Performed By: #### C 4, CH50, C3 #### [facility] , #### CBC, ADDONUAPLUS, ESR, CMP, CRP #### [address] GFR/1.73 sq M.predicted MDRD (S/P/Bld) [Vol rate/Area] mL/min/{1.73_m2} Normal [facility] Comment on above: Performed By: #### C 4, CH50, C3 #### [facility] , #### CBC, ADDONUAPLUS, ESR, CMP, CRP #### [address] Creatinine [Mass/volume] in Serum or PlasmaOrdered By: Sabrina Manriquez on 03-01-2025 Creatinine [Mass/Vol] 0.89 mg/dL Normal 0.70-1.30 [facility] Comment on above: Performed By: #### C 4, CH50, C3 #### [facility] , #### CBC, ADDONUAPLUS, ESR, CMP, CRP #### [address] Dipstick and Microscopicon 0 03-01-2025 Bacteria,Urine None Seen Normal None Seen [facility] Comment on above: Order Comment: Name Collection Type:: Clean-Voided Midstream Performed By: #### C 4, CH50, C3 #### [facility] , #### CBC, ADDONUAPLUS, ESR, CMP, CRP #### [address] Bilirubin,Urine Negative Normal Negative [facility] Comment on above: Order Comment: Name Collection Type:: Clean-Voided Midstream Performed By: #### C 4, CH50, C3 #### [facility] , #### CBC, ADDONUAPLUS, ESR, CMP, CRP #### [address] Glucose Ql (U) Normal Normal Normal [facility] Comment on above: Order Comment: Name Collection Type:: Clean-Voided Midstream Performed By: #### C 4, CH50, C3 #### [facility] , #### CBC, ADDONUAPLUS, ESR, CMP, CRP #### [address] Hyaline Casts,Urine None Normal 0-8 [facility] Comment on above: Order Comment: Name Collection Type:: Clean-Voided Midstream Performed By: #### C 4, CH50, C3 #### [facility] , #### CBC, ADDONUAPLUS, ESR, CMP, CRP #### [address] Mucus,Urine 1+ [LPF] Critically abnormal [facility] Comment on above: Order Comment: Name Collection Type:: Clean-Voided Midstream Result Comment: PERF ORMED BY: [place] [address] PATHOLOGIST REFINERY PIPELINE OPERATOR ALBANIA WAGNER M.D. Performed By: #### C 4, CH50, C3 #### [facility] , #### CBC, ADDONUAPLUS, ESR, CMP, CRP #### [address] Nitrite,Urine Negative Normal Negative [facility] Comment on above: Order Comment: Name Collection Type:: Clean-Voided Midstream Performed By: #### C 4, CH50, C3 #### [facility] , #### CBC, ADDONUAPLUS, ESR, CMP, CRP #### [address] Occult Blood,Urine Negative Normal Negative [facility] Comment on above: Order Comment: Name Collection Type:: Clean-Voided Midstream Performed By: #### C 4, CH50, C3 #### [facility] , #### CBC, ADDONUAPLUS, ESR, CMP, CRP #### [address] RBC,Urine 1-2 Normal 0-4 [facility] Comment on above: Order Comment: Name Collection Type:: Clean-Voided Midstream Performed By: #### C 4, CH50, C3 #### [facility] , #### CBC, ADDONUAPLUS, ESR, CMP, CRP #### [address] Specificy [place],Urine 1.021 Normal 1.001-1.03 0 [facility] Comment on above: Order Comment: Name Collection Type:: Clean-Voided Midstream Performed By: #### C 4, CH50, C3 #### [facility] , #### CBC, ADDONUAPLUS, ESR, CMP, CRP #### [address] Urobilinogen,Urine Normal Normal Normal [facility] Comment on above: Order Comment: Name Collection Type:: Clean-Voided Midstream Performed By: #### C 4, CH50, C3 #### [facility] , #### CBC, ADDONUAPLUS, ESR, CMP, CRP #### [place] [address] [place] WBC,Urine 1-2 Normal 0-4 [facility] Comment on above: Order Comment: Name Collection Type:: Clean-Voided Midstream Performed By: #### C 4, CH50, C3 #### [facility] , #### CBC, ADDONUAPLUS, ESR, CMP, CRP #### [address] Eosinophils [#/volume] in Bl ood by Automated countOrdered By: Sabrina Manriquez on 03-01-2025 Eosinophils (Bld) [#/Vol] 0.1 10*3/uL Normal 0.0-0.45 [facility] Comment on above: Performed By: #### C 4, CH50, C3 #### [facility] , #### CBC, CRP, ESR, CMP, ADDONUAPLUS #### [place] [address] [place] Eosinophils/100 leukocytes i n Blood by Automated countOrdered By: Sabrina Manriquez on 03-01-2025 Eosinophils/100 WBC (Bld) 0.7 % Normal . [facility] Comment on above: Performed By: #### C 4, CH50, C3 #### [facility] , #### CBC, CRP, ESR, CMP, ADDONUAPLUS #### [address] Epithelial cells.squamous [# /area] in Urine sediment by Automated countOrdered By: Sabrina Manriquez on 03-01-2025 Epithelial cells.squamous Auto (Urine sed) [#/Area] N/A [facility] Erythrocyte Sedimentation Ra natan 03-01-2025 ESR (Bld) [Velocity] 26 mm/h High 0-19 [facility] Comment on above: Result Comment: PERF ORMED BY: [place] [address] PATHOLOGIST REFINERY PIPELINE OPERATOR ALBANIA WAGNER M.D. Performed By: #### C 4, CH50, C3 #### [facility] , #### CBC, CRP, ESR, CMP, ADDONUAPLUS #### [facility] [address] Erythrocyte distribution wid th [Ratio] by Automated countOrdered By: Sabrina Manriquez on 03-01-2025 Erythrocyte distribution width (RBC) [Ratio] 13.5 % Normal 12.0-14.8 [facility] Comment on above: Performed By: #### C 4, CH50, C3 #### [facility] , #### CBC, CRP, ESR, CMP, ADDONUAPLUS #### [address] Erythrocyte sedimentation ra te by Photometric methodOrdered By: Sabrina Manriquez on 03-01-2025 ESR Photometric method (Bld) [Velocity] 26 mm/hr High 0-19 [facility] Erythrocytes [#/area] in Uri ne sediment by Automated countOrdered By: Sabrina Manriquez on 03-01-2025 RBC Auto (Urine sed) [#/Area] 1-2 [HPF] 0-4 [facility] Erythrocytes [#/volume] in B lood by Automated countOrdered By: Sabrina Manriquez on 03-01-2025 RBC (Bld) [#/Vol] 4.15 10*6/uL Normal 3.90-5.60 [facility] Comment on above: Performed By: #### C 4, CH50, C3 #### [facility] , #### CBC, CRP, ESR, CMP, ADDONUAPLUS #### [address] Glomerular filtration rate [ Volume Rate/Area] in Serum, Plasma or Blood by CreatinineOrdered By: Sabrina Manriquez on 03-01-2025 Glomerular filtration rate [Volume Rate/Area] in Serum, Plasma or Blood by Creatinine > 60.0 mL/Min [facility] Glucose [Mass/volume] in Ser um or PlasmaOrdered By: Sabrina Manriquez on 03-01-2025 Glucose [Mass/Vol] 176 mg/dL High 70-100 [facility] Comment on above: ADA recommended refe rence rangeRandom Glucose Reference Range is dependent on time and content of last meal. Glucose of more than 200 mg/dL in a nonstressed, ambulatory subject supports the diagnosis of Diabetes Mellitus. Result Comment: [place] Glucose Reference Range is dependent on time and content of last meal. Glucose of more than 200 mg/dL in a nonstressed, ambulatory subject supports the diagnosis of Diabetes Mellitus. ADA recommended reference range Performed By: #### C 4, CH50, C3 #### [facility] , #### CBC, ADDONUAPLUS, ESR, CMP, CRP #### [address] Glucose [Mass/volume] in Uri ne by Test stripOrdered By: Sabrian Manriquez on 03-01-2025 Glucose Test strip (U) [Mass/Vol] Normal mg/dL Normal [facility] Hematocrit [Volume Fraction] of Blood by Automated countOrdered By: Sabrina Manriquez on 03-01-2025 Hematocrit (Bld) [Volume fraction] 39.8 % Normal 38.8-50.0 [facility] Comment on above: Performed By: #### C 4, CH50, C3 #### [facility] , #### CBC, CRP, ESR, CMP, ADDONUAPLUS #### [address] Hemoglobin Test strip Ql (U) Ordered By: Sabrina Manriquez on 03-01-2025 Hemoglobin Ql (U) Negative Negative [facility] Hemoglobin [Mass/volume] in BloodOrdered By: Sabrina Ruizer on 03-01-2025 Hemoglobin (Bld) [Mass/Vol] 13.4 g/dL Normal 13.0-17.0 [facility] Comment on above: Performed By: #### C 4, CH50, C3 #### [facility] , #### CBC, CRP, ESR, CMP, ADDONUAPLUS #### [facility] [address] [place] [address] [place] Hyaline casts [#/area] in Ur ine sediment by Automated countOrdered By: Sabrina Manriquez on 03-01-2025 Hyaline casts Auto (Urine sed) [#/Area] None [LPF] 0-8 [facility] Ketones [Presence] in Urine by Test stripOrdered By: Sabrina Manriquez on 03-01-2025 Ketones Ql (U) Negative Normal Negative [facility] Comment on above: Order Comment: Name Collection Type:: Clean-Voided Midstream Performed By: #### C 4, CH50, C3 #### [facility] , #### CBC, ADDONUAPLUS, ESR, CMP, CRP #### [facility] [address] Leukocyte esterase [Presence ] in Urine by Test stripOrdered By: Sabrina Manriquez on 03-01-2025 Leukocyte esterase Test strip Ql (U) Negative Normal Negative [facility] Comment on above: Order Comment: Name Collection Type:: Clean-Voided Midstream Performed By: #### C 4, CH50, C3 #### [facility] , #### CBC, ADDONUAPLUS, ESR, CMP, CRP #### [facility] [address] [place] [address] [place] Leukocytes [#/area] in Urine sediment by Automated countOrdered By: Sabrina Manriquez on 03-01-2025 WBC Auto (Urine sed) [#/Area] 1-2 [HPF] 0-4 [facility] Leukocytes [#/volume] correc leah for nucleated erythrocytes in Blood by Automated counOrdered By: Sabrina Manriquez on 03-01-2025 WBC corrected for nucl RBC Auto (Bld) [#/Vol] 6.7 10*3/uL 4.1-10.5 [facility] Leukocytes [#/volume] in Blo od by Automated countOrdered By: Sabrina Manriquez on 03-01-2025 WBC (Bld) [#/Vol] 6.7 10*3/uL Normal 4.1-10.5 [facility] Comment on above: Performed By: #### C 4, CH50, C3 #### [facility] , #### CBC, CRP, ESR, CMP, ADDONUAPLUS #### [address] Lymphocytes [#/volume] in Bl ood by Automated countOrdered By: Sabrina Manriquez on 03-01-2025 Lymphocytes (Bld) [#/Vol] 1.0 10*3/uL Normal 1.00-4.8 [facility] Comment on above: Performed By: #### C 4, CH50, C3 #### [facility] , #### CBC, CRP, ESR, CMP, ADDONUAPLUS #### [address] Lymphocytes/100 leukocytes i n Blood by Automated countOrdered By: Sabrina Manriquez on 03-01-2025 Lymphocytes/100 WBC (Bld) 15.1 % Normal . [facility] Comment on above: Performed By: #### C 4, CH50, C3 #### [facility] , #### CBC, CRP, ESR, CMP, ADDONUAPLUS #### [address] MCH [Entitic mass] by Automa leah countOrdered By: Sabrina Manriquez on 03-01-2025 MCH (RBC) [Entitic mass] 32.3 pg Normal 27.5-35.2 [facility] Comment on above: Performed By: #### C 4, CH50, C3 #### [facility] , #### CBC, CRP, ESR, CMP, ADDONUAPLUS #### [address] MCHC Auto (RBC) [Mass/Vol]Or dered By: Sabrina Manriquez on 03-01-2025 MCHC (RBC) [Mass/Vol] 33.7 g/dL 32.5-35.6 [facility] MCV [Entitic volume] by Auto mated countOrdered By: Sabrina Manriquez on 03-01-2025 MCV (RBC) [Entitic vol] 95.9 fL Normal 83.5-101 [facility] Comment on above: Performed By: #### C 4, CH50, C3 #### [facility] , #### CBC, CRP, ESR, CMP, ADDONUAPLUS #### [address] Monocytes [#/volume] in Bloo d by Automated countOrdered By: Sabrina Manriquez on 03-01-2025 Monocytes (Bld) [#/Vol] 0.4 10*3/uL Normal 0.0-0.8 [facility] Comment on above: Performed By: #### C 4, CH50, C3 #### [facility] , #### CBC, CRP, ESR, CMP, ADDONUAPLUS #### [address] Monocytes/100 leukocytes in Blood by Automated countOrdered By: Sabrina Manriquez on 03-01-2025 Monocytes/100 WBC (Bld) 6.0 % Normal . [facility] Comment on above: Performed By: #### C 4, CH50, C3 #### [facility] , #### CBC, CRP, ESR, CMP, ADDONUAPLUS #### [address] Mucus [Presence] in Urine by AutomatedOrdered By: Sabrina Manriquez on 03-01-2025 Mucus Auto Ql (U) 1+ [LPF] Abnormal [facility] Neutrophils [#/volume] in Bl ood by Automated countOrdered By: Sabrina Manriquez on 03-01-2025 Neutrophils (Bld) [#/Vol] 5.2 10*3/uL Normal 1.8-7.7 [facility] Comment on above: Performed By: #### C 4, CH50, C3 #### [facility] , #### CBC, CRP, ESR, CMP, ADDONUAPLUS #### [facility] [address] [place] [address] [place] Neutrophils/100 leukocytes i n Blood by Automated countOrdered By: Sabrina Manriquez on 03-01-2025 Neutrophils/100 WBC (Bld) 77.5 % Normal . [facility] Comment on above: Performed By: #### C 4, CH50, C3 #### [facility] , #### CBC, CRP, ESR, CMP, ADDONUAPLUS #### [facility] [address] Nitrite Test strip Ql (U)Ord ered By: Sabrina Manriquez on 03-01-2025 Nitrite Ql (U) Negative Negative [facility] No Panel InformationOrdered By: Sabrina Manriquez on 03-01-2025 Pharmacy Creatinine Clearance (Chem N/A [facility] Nucleated erythrocytes [Pres ence] in Blood by Automated countOrdered By: Sabrina Manriquez on 03-01-2025 Nucleated RBC Auto Ql (Bld) 0.0 /100{WBC} 0-0.5 [facility] Platelet mean volume [Entiti c volume] in Blood by Automated countOrdered By: Sabrina Manriquez on 03-01-2025 Platelet mean volume (Bld) [Entitic vol] 8.3 fL Normal 6.6-10.1 [facility] Comment on above: Performed By: #### C 4, CH50, C3 #### [facility] , #### CBC, CRP, ESR, CMP, ADDONUAPLUS #### [facility] [address] [place] [address] Platelets [#/volume] in Bloo d by Automated countOrdered By: Sabrina Manriquez on 03-01-2025 Platelets (Bld) [#/Vol] 309 10*3/uL Normal 150-450 [facility] Comment on above: Performed By: #### C 4, CH50, C3 #### [facility] , #### CBC, CRP, ESR, CMP, ADDONUAPLUS #### [facility] [address] [place] [id number] [place] Potassium [Moles/volume] in Serum or PlasmaOrdered By: Sabrina Manriquez on 03-01-2025 Potassium [Moles/Vol] 4.2 mmol/L Normal 3.5-5.1 [facility] Comment on above: Performed By: #### C 4, CH50, C3 #### [facility] , #### CBC, ADDONUAPLUS, ESR, CMP, CRP #### [place] [address] [place] Protein [Mass/volume] in Ser um or PlasmaOrdered By: Sabrina Manriquez on 03-01-2025 Protein [Mass/Vol] 6.7 g/dL Normal 6.4-8.9 [facility] Comment on above: Performed By: #### C 4, CH50, C3 #### [facility] , #### CBC, ADDONUAPLUS, ESR, CMP, CRP #### [place] [id number] [place] Protein [Mass/volume] in Uri ne by Test stripOrdered By: Sabrina Manriquez on 03-01-2025 Protein (U) [Mass/Vol] 20 mg/dL Normal Negative [facility] Comment on above: Order Comment: Name Collection Type:: Clean-Voided Midstream Performed By: #### C 4, CH50, C3 #### [facility] , #### CBC, ADDONUAPLUS, ESR, CMP, CRP #### [address] Serum globulin measurement b y calculation (mass/volume)Ordered By: Sabrina Manriquez on 03-01-2025 Globulin (S) [Mass/Vol] 2.6 g/dL Normal [facility] Comment on above: Performed By: #### C 4, CH50, C3 #### [facility] , #### CBC, ADDONUAPLUS, ESR, CMP, CRP #### [address] Serum or plasma albumin/glob ulin mass ratioOrdered By: Sabrina Manriquez on 03-01-2025 Albumin/Globulin [Mass ratio] 1.6 {ratio} Normal [facility] Comment on above: Performed By: #### C 4, CH50, C3 #### [facility] , #### CBC, ADDONUAPLUS, ESR, CMP, CRP #### [address] Serum or plasma anion gap de terminationOrdered By: Sabrina Manriquez on 03-01-2025 Anion gap [Moles/Vol] 11.1 mmol/L Normal 6.0-15.0 [facility] Comment on above: Performed By: #### C 4, CH50, C3 #### [facility] , #### CBC, ADDONUAPLUS, ESR, CMP, CRP #### [address] Sodium [Moles/volume] in Ser um or PlasmaOrdered By: Sabrina Manriquez on 03-01-2025 Sodium [Moles/Vol] 140 mmol/L Normal 136-145 [facility] Comment on above: Performed By: #### C 4, CH50, C3 #### [facility] , #### CBC, ADDONUAPLUS, ESR, CMP, CRP #### [address] Specific gravity Test strip (U) [Rel density]Ordered By: Sabrina Manriquez on 03-01-2025 Specific gravity (U) [Rel density] 1.021 1.001-1.03 0 [facility] Urea nitrogen [Mass/volume] in Serum or PlasmaOrdered By: Sabrina Manriquez on 03-01-2025 Urea nitrogen [Mass/Vol] 15 mg/dL Normal 7-25 [facility] Comment on above: Performed By: #### C 4, CH50, C3 #### [facility] , #### CBC, ADDONUAPLUS, ESR, CMP, CRP #### [facility] [address] Urobilinogen Test strip (U) [Mass/Vol]Ordered By: Sabrina Manriquez on 03-01-2025 Urobilinogen (U) [Mass/Vol] Normal mg/dL Normal [facility] pH of Urine by Test stripOrd ered By: Sabrina Manriquez on 03-01-2025 pH (U) 5.5 [pH] Normal 5.0-9.0 [facility] Comment on above: Order Comment: Name Collection Type:: Clean-Voided Midstream Performed By: #### C 4, CH50, C3 #### [facility] , #### CBC, ADDONUAPLUS, ESR, CMP, CRP #### [facility] [address] MR Cervical spine WO contras ton 01-05-2025 [place] [address] Magnetic Resonance Report Signed Patient: JAY CARR MR#: [id number] : 1960 Acct:[id number] Age/Sex: 64 / M ADM Date: 01/04/25 Loc: MRI Attending Dr: Brennen Sam M.D. Ordering Physician: Brennen Sam M.D. Date of Service: 01/04/25 Procedure(s): MR cervical spine wo con Accession Number(s): [id number] cc: Brennen Sam M.D.; Dania Armstrong M.D. [place] [id number] Patient Name: JAY CARR MRN: [id number] date: 1960 Sex: M Assigned Patient Location: MRI Current Patient Location: Accession/Order Number: [id number] Exam Date: 01/05/2025 07:51 Report Date: 01/05/2025 [...] uncal vertebral spurring causing moderate right and cxza-pq-nyqjwxok left-sided neural foraminal narrowing. Canal patent. C5-6: Prior discectomy. Minimal diffuse ossific bridging noted and uncovertebral spurring, prominent left-sided. This causes minimal right-sided mild left-sided neural foraminal narrowing. Canal is patent. C6-7: Discectomy and fusion. Diffuse ossific bridging and uncovertebral spur formation identified causing mild central canal and mild bilateral neural foramina narrowing. C7-T1: Mild uncovertebral spurring and zhwt-ik-qbgickmu facet arthropathy. This causes moderate bilateral neural from narrowing. Mild central canal stenosis. . MR/MR cervical spine wo con IMPRESSION: [id number] DEGENERATIVE CHANGES WITH UP TO MILD CENTRAL CANAL NARROWING. JUNCTIONAL DEGENERATIVE CHANGES AND FORAMINAL ENCROACHMENT DUE TO UNCOVERTEBRAL SPURRING GREATEST RIGHT AT C4-C5 Impression dictated by: Wallace Brewster M.D. 01/05/2025 7:58 AM Dictation Location: [place] [address] Electronically authenticated by: [id number] Y Date: 01/05/2025 07:58 Dictated By: Wallace Brewster M.D. Signed By: 01/05/25 0801 DD/ 0758 TD/TT: Autocad Technician: [facility] Radiology, Radiologi MD chetan - 01/05/2025 [place] [address] Magnetic Resonance Report Signed Patient: JAY CARR MR#: [id number] : 1960 Acct:[id number] Age/Sex: 64 / M ADM Date: 01/04/25 Loc: MRI Attending Dr: Brennen Sam M.D. Ordering Physician: Brennen Sam M.D. Date of Service: 01/04/25 Procedure(s): MR cervical spine wo con Accession Number(s): [id number] cc: Brennen Sam M.D.; Dania Armstrong M.D. [address] [address] Patient Name: JAY CARR MRN: [id number] date: 1960 Sex: M Assigned Patient Location: MRI Current Patient Location: Accession/Order Number: [id number] Exam Date: 01/05/2025 07:51 Report Date: 01/05/2025 [...] uncal vertebral spurring causing moderate right and cxzr-jl-xtgvrxxv left-sided neural foraminal narrowing. Canal patent. C5-6: Prior discectomy. Minimal diffuse ossific bridging noted and uncovertebral spurring, prominent left-sided. This causes minimal right-sided mild left-sided neural foraminal narrowing. Canal is patent. C6-7: Discectomy and fusion. Diffuse ossific bridging and uncovertebral spur formation identified causing mild central canal and mild bilateral neural foramina narrowing. C7-T1: Mild uncovertebral spurring and fafg-nd-cftfbkas facet arthropathy. This causes moderate bilateral neural from narrowing. Mild central canal stenosis. . MR/MR cervical spine wo con IMPRESSION: [id number] DEGENERATIVE CHANGES WITH UP TO MILD CENTRAL CANAL NARROWING. JUNCTIONAL DEGENERATIVE CHANGES AND FORAMINAL ENCROACHMENT DUE TO UNCOVERTEBRAL SPURRING GREATEST RIGHT AT C4-C5 Impression dictated by: Wallace Brewster M.D. 01/05/2025 7:58 AM Dictation Location: [place] [address] Electronically authenticated by: [id number] Y Date: 01/05/2025 07:58 Dictated By: Wallace Brewster M.D. Signed By: 01/05/25 0801 DD/ 0758 TD/TT: Autocad Technician: [facility] Radiology Study observation (narrative) [facility] MR Cervical spine WO contras tOrdered By: Radiologist Radiology on 01-05-2025 [facility] [employer] Work Phone: Alanine aminotransferase [En zymatic activity/volume] in Serum or PlasmaOrdered By: Sabrina Manriquez on 10-13-2024 ALT [Catalytic activity/Vol] Alanine aminotransferase [Enzymatic activity/volume] in Serum or Plasma [facility] Albumin [Mass/volume] in Ser um or Plasma by Bromocresol green (BCG) dye binding methoOrdered By: Sabrina Manriquez on 10-13-2024 Albumin BCG dye [Mass/Vol] Albumin [Mass/volume] in Serum or Plasma by Bromocresol green (BCG) dye binding metho 3.5-5.7 [facility] Alkaline phosphatase [Enzyma tic activity/volume] in Serum or PlasmaOrdered By: Sabrina Manriquez on 10-13-2024 ALP [Catalytic activity/Vol] Alkaline phosphatase [Enzymatic activity/volume] in Serum or Plasma 34-104 [facility] Appearance of UrineOrdered B y: Sabrina Manriquez on 10-13-2024 Appearance (U) Urine appearance [facility] Aspartate aminotransferase [ Enzymatic activity/volume] in Serum or PlasmaOrdered By: Sabrina Manriquez on 10-13-2024 AST [Catalytic activity/Vol] Aspartate aminotransferase [Enzymatic activity/volume] in Serum or Plasma 13-39 [facility] Bacteria [Presence] in Urine by AutomatedOrdered By: Sabrina Manriquez on 10-13-2024 Bacteria Auto Ql (U) Bacteria [Presence] in Urine by Automated None Seen [facility] Basophils Auto (Bld) [#/Vol] Ordered By: Sabrina Manriquez on 10-13-2024 Basophils (Bld) [#/Vol] Automated basophil count 0.0-0.2 [facility] Basophils/100 WBC Auto (Bld) Ordered By: Sabrina Manriquez on 10-13-2024 Basophils/100 WBC (Bld) Automated basophil % . [facility] Bilirubin Test strip Ql (U)O rdered By: Sabrina Manriquez on 10-13-2024 Bilirubin Ql (U) Bilirubin.total [Presence] in Urine by Test strip Negative [facility] Bilirubin.total [Mass/volume ] in Serum or PlasmaOrdered By: Sabrina Manriquez on 10-13-2024 Bilirubin [Mass/Vol] Bilirubin.total [Mass/volume] in Serum or Plasma 0.3-1.0 [facility] C reactive protein [Mass/vol ume] in Serum or PlasmaOrdered By: Sabrina Manriquez on 10-13-2024 CRP [Mass/Vol] C reactive protein [Mass/volume] in Serum or Plasma 0.0-0.5 [facility] C-Reactive Proteinon 025 CRP [Mass/Vol] mg/L Normal 0.0-0.5 [facility] Comment on above: Result Comment: PERF ORMED BY: [place] [address] PATHOLOGIST REFINERY PIPELINE OPERATOR CHRIST FARAH M.D. Performed By: #### C 4, CH50, C3 #### [facility] , #### CBC, CRP, ESR, CMP, ADDONUAPLUS #### [address] Calcium [Mass/volume] in Ser um or PlasmaOrdered By: Sabrina Manriquez on 10-13-2024 Calcium [Mass/Vol] Calcium [Mass/volume ] in Serum or Plasma 8.6-10.3 [facility] Carbon dioxide, total [Moles /volume] in Serum or PlasmaOrdered By: Sabrina Manriquez on 10-13-2024 CO2 [Moles/Vol] Carbon dioxide, tota l [Moles/volume] in Serum or Plasma 21.0-31.0 [facility] Chloride [Moles/volume] in S lenny or PlasmaOrdered By: Sabrina Manriquez on 10-13-2024 Chloride [Moles/Vol] Chloride [Moles/vol ume] in Serum or Plasma 98-107 [facility] Color Auto (U)Ordered By: Emily Montiel on 10-13-2024 Color (U) Color of Urine by Auto Yellow Fi [facility] Complement C3on 10-13-2024 Complement C3 126 mg/dL Normal 82-167 [facility] Comment on above: Result Comment: Perf ormed at: [facility] [place] [id number] Loan Supervisor: Derek Toscano PhD, Phone: [phone] Performed By: #### C 4, CH50, C3 #### [facility] , #### CBC, CRP, ESR, CMP, ADDONUAPLUS #### [address] Complement C4on 10-13-2024 Complement C4 23 mg/dL Normal 12-38 [facility] Comment on above: Result Comment: Perf ormed at: [facility] [address] [id number] Loan Supervisor: Derek Toscano PhD, Phone: [phone] PERFORMED BY: [place] [address] PATHOLOGIST REFINERY PIPELINE OPERATOR CHRIST FARAH M.D. Performed By: #### C 4, CH50, C3 #### [facility] , #### CBC, CRP, ESR, CMP, ADDONUAPLUS #### [address] Complement Total (CH50)on Complement Total (CH50) 50 Normal >41 [facility] Comment on above: [...] of range values. Performed at: - [facility] [address] [id number] Loan Supervisor: Derek Toscano PhD, Phone: [phone] PERFORMED BY: [place] [address] PATHOLOGIST REFINERY PIPELINE OPERATOR CHRIST FARAH M.D. Performed By: #### C 4, CH50, C3 #### [facility] , #### CBC, CRP, ESR, CMP, ADDONUAPLUS #### [address] Complete Blood Count Auto Di ffon 10-13-2024 Basophils (Bld) [#/Vol] 0.0 10*3/uL Normal 0.0-0.2 [facility] Comment on above: Performed By: #### C 4, CH50, C3 #### [facility] , #### CBC, CRP, ESR, CMP, ADDONUAPLUS #### [address] Basophils/100 WBC (Bld) 0.6 % Normal . [facility] Comment on above: Performed By: #### C 4, CH50, C3 #### [facility] , #### CBC, CRP, ESR, CMP, ADDONUAPLUS #### [place] [id number] [place] Eosinophils (Bld) [#/Vol] 0.1 10*3/uL Normal 0.0-0.45 [facility] Comment on above: Performed By: #### C 4, CH50, C3 #### [facility] , #### CBC, CRP, ESR, CMP, ADDONUAPLUS #### [address] Eosinophils/100 WBC (Bld) 1.2 % Normal . [facility] Comment on above: Performed By: #### C 4, CH50, C3 #### [facility] , #### CBC, CRP, ESR, CMP, ADDONUAPLUS #### [address] Erythrocyte distribution width (RBC) [Ratio] 13.8 % Normal 12.0-14.8 [facility] Comment on above: Performed By: #### C 4, CH50, C3 #### [facility] , #### CBC, CRP, ESR, CMP, ADDONUAPLUS #### [address] Hematocrit (Bld) [Volume fraction] 42.9 % Normal 38.8-50.0 [facility] Comment on above: Performed By: #### C 4, CH50, C3 #### [facility] , #### CBC, CRP, ESR, CMP, ADDONUAPLUS #### [address] Hemoglobin (Bld) [Mass/Vol] 14.8 g/dL Normal 13.0-17.0 [facility] Comment on above: Performed By: #### C 4, CH50, C3 #### [facility] , #### CBC, CRP, ESR, CMP, ADDONUAPLUS #### [address] Lymphocytes (Bld) [#/Vol] 1.1 10*3/uL Normal 1.00-4.8 [facility] Comment on above: Performed By: #### C 4, CH50, C3 #### [facility] , #### CBC, CRP, ESR, CMP, ADDONUAPLUS #### [address] Lymphocytes/100 WBC (Bld) 15.9 % Normal . [facility] Comment on above: Performed By: #### C 4, CH50, C3 #### [facility] , #### CBC, CRP, ESR, CMP, ADDONUAPLUS #### [address] MCH (RBC) [Entitic mass] 32.4 pg Normal 27.5-35.2 [facility] Comment on above: Performed By: #### C 4, CH50, C3 #### [facility] , #### CBC, CRP, ESR, CMP, ADDONUAPLUS #### [address] MCV (RBC) [Entitic vol] 94.2 fL Normal 83.5-101 [facility] Comment on above: Performed By: #### C 4, CH50, C3 #### [facility] , #### CBC, CRP, ESR, CMP, ADDONUAPLUS #### [address] Mean Corpuscular HGB Conc 34.4 g/dL Normal 32.5-35.6 [facility] Comment on above: Performed By: #### C 4, CH50, C3 #### [facility] , #### CBC, CRP, ESR, CMP, ADDONUAPLUS #### [address] Monocytes (Bld) [#/Vol] 0.5 10*3/uL Normal 0.0-0.8 [facility] Comment on above: Performed By: #### C 4, CH50, C3 #### [facility] , #### CBC, CRP, ESR, CMP, ADDONUAPLUS #### [address] Monocytes/100 WBC (Bld) 7.4 % Normal . [facility] Comment on above: Performed By: #### C 4, CH50, C3 #### [facility] , #### CBC, CRP, ESR, CMP, ADDONUAPLUS #### [address] Neutrophils (Bld) [#/Vol] 5.1 10*3/uL Normal 1.8-7.7 [facility] Comment on above: Performed By: #### C 4, CH50, C3 #### [facility] , #### CBC, CRP, ESR, CMP, ADDONUAPLUS #### [address] Neutrophils/100 WBC (Bld) 74.9 % Normal . [facility] Comment on above: Performed By: #### C 4, CH50, C3 #### [facility] , #### CBC, CRP, ESR, CMP, ADDONUAPLUS #### [address] NRBC% 0.1 /100{WBC} Normal 0-0.5 [facility] Comment on above: Performed By: #### C 4, CH50, C3 #### [facility] , #### CBC, CRP, ESR, CMP, ADDONUAPLUS #### [address] Platelet mean volume (Bld) [Entitic vol] 9.2 fL Normal 6.6-10.1 [facility] Comment on above: Performed By: #### C 4, CH50, C3 #### [facility] , #### CBC, CRP, ESR, CMP, ADDONUAPLUS #### [address] Platelets (Bld) [#/Vol] 232 10*3/uL Normal 150-450 [facility] Comment on above: Performed By: #### C 4, CH50, C3 #### [facility] , #### CBC, CRP, ESR, CMP, ADDONUAPLUS #### [address] RBC (Bld) [#/Vol] 4.56 10*6/uL Normal 3.90-5.60 [facility] Comment on above: Performed By: #### C 4, CH50, C3 #### [facility] , #### CBC, CRP, ESR, CMP, ADDONUAPLUS #### [address] WBC (Bld) [#/Vol] 6.8 10*3/uL Normal 4.1-10.5 [facility] Comment on above: Performed By: #### C 4, CH50, C3 #### [facility] , #### CBC, CRP, ESR, CMP, ADDONUAPLUS #### [address] Comprehensive Metabolic Pane tanika 10-13-2024 Albumin [Mass/Vol] 4.4 g/dL Normal 3.5-5.7 [facility] Comment on above: Performed By: #### C 4, CH50, C3 #### [facility] , #### CBC, CRP, ESR, CMP, ADDONUAPLUS #### [address] Albumin/Globulin [Mass ratio] 1.7 {ratio} Normal [facility] Comment on above: Performed By: #### C 4, CH50, C3 #### [facility] , #### CBC, CRP, ESR, CMP, ADDONUAPLUS #### [address] ALP [Catalytic activity/Vol] 92 U/L Normal 34-104 [facility] Comment on above: Performed By: #### C 4, CH50, C3 #### [facility] , #### CBC, CRP, ESR, CMP, ADDONUAPLUS #### [address] ALT [Catalytic activity/Vol] 29 U/L Normal 7-52 [facility] Comment on above: Performed By: #### C 4, CH50, C3 #### [facility] , #### CBC, CRP, ESR, CMP, ADDONUAPLUS #### [address] Anion gap [Moles/Vol] 11.0 mmol/L Normal 6.0-15.0 [facility] Comment on above: Performed By: #### C 4, CH50, C3 #### [facility] , #### CBC, CRP, ESR, CMP, ADDONUAPLUS #### [address] AST [Catalytic activity/Vol] 30 U/L Normal 13-39 [facility] Comment on above: Performed By: #### C 4, CH50, C3 #### [facility] , #### CBC, CRP, ESR, CMP, ADDONUAPLUS #### [address] Bilirubin [Mass/Vol] 0.7 mg/dL Normal 0.3-1.0 [facility] Comment on above: Performed By: #### C 4, CH50, C3 #### [facility] , #### CBC, CRP, ESR, CMP, ADDONUAPLUS #### [address] Calcium [Mass/Vol] 9.4 mg/dL Normal 8.6-10.3 [facility] Comment on above: Performed By: #### C 4, CH50, C3 #### [facility] , #### CBC, CRP, ESR, CMP, ADDONUAPLUS #### [address] Chloride [Moles/Vol] 105 mmol/L Normal 98-107 [facility] Comment on above: Performed By: #### C 4, CH50, C3 #### [facility] , #### CBC, CRP, ESR, CMP, ADDONUAPLUS #### [address] CO2 [Moles/Vol] 27.9 mmol/L Normal 21.0-31.0 [facility] Comment on above: Performed By: #### C 4, CH50, C3 #### [facility] , #### CBC, CRP, ESR, CMP, ADDONUAPLUS #### [address] Creatinine [Mass/Vol] 0.94 mg/dL Normal 0.70-1.30 [facility] Comment on above: Performed By: #### C 4, CH50, C3 #### [facility] , #### CBC, CRP, ESR, CMP, ADDONUAPLUS #### [address] GFR/1.73 sq M.predicted MDRD (S/P/Bld) [Vol rate/Area] mL/min/{1.73_m2} Normal [facility] Comment on above: Performed By: #### C 4, CH50, C3 #### [facility] , #### CBC, CRP, ESR, CMP, ADDONUAPLUS #### [address] Globulin (S) [Mass/Vol] 2.6 g/dL Normal [facility] Comment on above: Performed By: #### C 4, CH50, C3 #### [facility] , #### CBC, CRP, ESR, CMP, ADDONUAPLUS #### [address] Glucose [Mass/Vol] 88 mg/dL Normal 70-100 [facility] Comment on above: Result Comment: [facility] Glucose Reference Range is dependent on time and content of last meal. Glucose of more than 200 mg/dL in a nonstressed, ambulatory subject supports the diagnosis of Diabetes Mellitus. ADA recommended reference range Performed By: #### C 4, CH50, C3 #### [facility] , #### CBC, CRP, ESR, CMP, ADDONUAPLUS #### [address] Potassium [Moles/Vol] 3.9 mmol/L Normal 3.5-5.1 [facility] Comment on above: Performed By: #### C 4, CH50, C3 #### [facility] , #### CBC, CRP, ESR, CMP, ADDONUAPLUS #### [address] Protein [Mass/Vol] 7.0 g/dL Normal 6.4-8.9 [facility] Comment on above: Performed By: #### C 4, CH50, C3 #### [facility] , #### CBC, CRP, ESR, CMP, ADDONUAPLUS #### [place] [address] [place] Sodium [Moles/Vol] 140 mmol/L Normal 136-145 [facility] Comment on above: Performed By: #### C 4, CH50, C3 #### [facility] , #### CBC, CRP, ESR, CMP, ADDONUAPLUS #### [address] Urea nitrogen [Mass/Vol] 18 mg/dL Normal 7-25 [facility] Comment on above: Performed By: #### C 4, CH50, C3 #### [facility] , #### CBC, CRP, ESR, CMP, ADDONUAPLUS #### [place] [address] [place] Creatinine [Mass/volume] in Serum or PlasmaOrdered By: Sabrina Manriquez on 10-13-2024 Creatinine [Mass/Vol] Creatinine [Mass/v olume] in Serum or Plasma 0.70-1.30 [facility] Dipstick and Microscopicon 0 10-13-2024 Appearance (U) Clear Normal Clear [facility] Comment on above: Order Comment: Name Collection Type:: Clean-Voided Midstream Performed By: #### C 4, CH50, C3 #### [facility] , #### CBC, CRP, ESR, CMP, ADDONUAPLUS #### [address] Bacteria,Urine None Seen Normal None Seen [facility] Comment on above: Order Comment: Name Collection Type:: Clean-Voided Midstream Performed By: #### C 4, CH50, C3 #### [facility] , #### CBC, CRP, ESR, CMP, ADDONUAPLUS #### [place] [address] [place] Bilirubin,Urine Negative Normal Negative The [facility] Comment on above: Order Comment: Name Collection Type:: Clean-Voided Midstream Performed By: #### C 4, CH50, C3 #### [facility] , #### CBC, CRP, ESR, CMP, ADDONUAPLUS #### [place] [address] [place] Color (U) Yellow Normal Yellow The [facility] Comment on above: Order Comment: Name Collection Type:: Clean-Voided Midstream Performed By: #### C 4, CH50, C3 #### [facility] , #### CBC, CRP, ESR, CMP, ADDONUAPLUS #### [place] [address] Glucose Ql (U) Normal Normal Normal [facility] Comment on above: Order Comment: Name Collection Type:: Clean-Voided Midstream Performed By: #### C 4, CH50, C3 #### [facility] , #### CBC, CRP, ESR, CMP, ADDONUAPLUS #### [address] Hyaline Casts,Urine None Normal 0-8 [facility] Comment on above: Order Comment: Name Collection Type:: Clean-Voided Midstream Performed By: #### C 4, CH50, C3 #### [facility] , #### CBC, CRP, ESR, CMP, ADDONUAPLUS #### [address] Ketones Ql (U) Negative Normal Negative [facility] Comment on above: Order Comment: Name Collection Type:: Clean-Voided Midstream Performed By: #### C 4, CH50, C3 #### [facility] , #### CBC, CRP, ESR, CMP, ADDONUAPLUS #### [address] Leukocyte esterase Test strip Ql (U) Negative Normal Negative The [facility] Comment on above: Order Comment: Name Collection Type:: Clean-Voided Midstream Performed By: #### C 4, CH50, C3 #### [facility] , #### CBC, CRP, ESR, CMP, ADDONUAPLUS #### [address] Mucus,Urine 1+ Critically abnormal The [facility] Comment on above: Order Comment: Name Collection Type:: Clean-Voided Midstream Result Comment: PERF ORMED BY: [place] [address] PATHOLOGIST REFINERY PIPELINE OPERATOR CHRIST FARAH M.D. Performed By: #### C 4, CH50, C3 #### [facility] , #### CBC, CRP, ESR, CMP, ADDONUAPLUS #### [address] Nitrite,Urine Negative Normal Negative [facility] Comment on above: Order Comment: Name Collection Type:: Clean-Voided Midstream Performed By: #### C 4, CH50, C3 #### [facility] , #### CBC, CRP, ESR, CMP, ADDONUAPLUS #### [address] Occult Blood,Urine Negative Normal Negative [facility] Comment on above: Order Comment: Name Collection Type:: Clean-Voided Midstream Performed By: #### C 4, CH50, C3 #### [facility] , #### CBC, CRP, ESR, CMP, ADDONUAPLUS #### [address] pH (U) 5.5 [pH] Normal 5.0-9.0 [facility] [facility] Comment on above: Order Comment: Name Collection Type:: Clean-Voided Midstream Performed By: #### C 4, CH50, C3 #### [facility] , #### CBC, CRP, ESR, CMP, ADDONUAPLUS #### [address] Protein (U) [Mass/Vol] 20 mg/dL High Negative Th [facility] Comment on above: Order Comment: Name Collection Type:: Clean-Voided Midstream Performed By: #### C 4, CH50, C3 #### [facility] , #### CBC, CRP, ESR, CMP, ADDONUAPLUS #### [address] RBC,Urine 1-2 Normal 0-4 [facility] Comment on above: Order Comment: Name Collection Type:: Clean-Voided Midstream Performed By: #### C 4, CH50, C3 #### [facility] , #### CBC, CRP, ESR, CMP, ADDONUAPLUS #### [address] Specificy [place],Urine 1.024 Normal 1.001-1.03 0 [facility] Comment on above: Order Comment: Name Collection Type:: Clean-Voided Midstream Performed By: #### C 4, CH50, C3 #### [facility] , #### CBC, CRP, ESR, CMP, ADDONUAPLUS #### [address] Squamous Epithelial Cell,Urine 1-2 Normal 0-2 [facility] Comment on above: Order Comment: Name Collection Type:: Clean-Voided Midstream Performed By: #### C 4, CH50, C3 #### [facility] , #### CBC, CRP, ESR, CMP, ADDONUAPLUS #### [address] Urobilinogen,Urine Normal Normal Normal [facility] Comment on above: Order Comment: Name Collection Type:: Clean-Voided Midstream Performed By: #### C 4, CH50, C3 #### [facility] , #### CBC, CRP, ESR, CMP, ADDONUAPLUS #### [address] WBC,Urine 1-2 Normal 0-4 [facility] Comment on above: Order Comment: Name Collection Type:: Clean-Voided Midstream Performed By: #### C 4, CH50, C3 #### [facility] , #### CBC, CRP, ESR, CMP, ADDONUAPLUS #### [address] Eosinophils Auto (Bld) [#/Vo l]Ordered By: Sabrina Manriquez on 10-13-2024 Eosinophils (Bld) [#/Vol] Automated eosinophil count 0.0-0.45 [facility] Eosinophils/100 WBC Auto (Bl d)Ordered By: Sabrina Manriquez on 10-13-2024 Eosinophils/100 WBC (Bld) Automated eosinophil % . [facility] Epithelial cells.squamous [# /area] in Urine sediment by Automated countOrdered By: Sabrina Manriquez on 10-13-2024 Epithelial cells.squamous Auto (Urine sed) [#/Area] Epithelial cells.squamous [#/area] in Urine sediment by Automated count 0-2 [facility] Erythrocyte Sedimentation Ra natan 10-13-2024 ESR (Bld) [Velocity] 7 mm/h Normal 0-19 [facility] Comment on above: Result Comment: PERF ORMED BY: [place] [address] PATHOLOGIST REFINERY PIPELINE OPERATOR CHRIST FARAH M.D. Performed By: #### C 4, CH50, C3 #### [facility] , #### CBC, CRP, ESR, CMP, ADDONUAPLUS #### [address] Erythrocyte distribution wid th Auto (RBC) [Ratio]Ordered By: Sabrina Manriquez on 10-13-2024 Erythrocyte distribution width (RBC) [Ratio] Erythrocyte distribution width [Ratio] by Automated count 12.0-14.8 [facility] Erythrocyte sedimentation ra te by Photometric methodOrdered By: Sabrina Manriquez on 10-13-2024 ESR Photometric method (Bld) [Velocity] Erythrocyte sedimentation rate by Photometric method 0-19 [facility] Erythrocytes [#/area] in Uri ne sediment by Automated countOrdered By: Sabrina Manriquez on 10-13-2024 RBC Auto (Urine sed) [#/Area] Erythrocytes [#/area] in Urine sediment by Automated count 0-4 [facility] Globulin Calc (S) [Mass/Vol] Ordered By: Sabrina Manriquez on 10-13-2024 Globulin (S) [Mass/Vol] Serum globulin measurement by calculation (mass/volume) [facility] Glucose [Mass/volume] in Ser um or PlasmaOrdered By: Sabrina Manriquez on 10-13-2024 Glucose [Mass/Vol] Glucose [Mass/volume ] in Serum or Plasma 70-100 [facility] Comment on above: ADA recommended refe rence rangeRandom Glucose Reference Range is dependent on time and content of last meal. Glucose of more than 200 mg/dL in a nonstressed, ambulatory subject supports the diagnosis of Diabetes Mellitus. Glucose [Mass/volume] in Uri ne by Test stripOrdered By: Sabrina Manriquez on 10-13-2024 Glucose Test strip (U) [Mass/Vol] Glucose [Mass/volume] in Urine by Test strip Normal [facility] Hematocrit Auto (Bld) [Volum e fraction]Ordered By: Sabrina Manriquez on 10-13-2024 Hematocrit (Bld) [Volume fraction] Hematocrit [Volume Fraction] of Blood by Automated count 38.8-50.0 [facility] Hemoglobin Test strip Ql (U) Ordered By: Sabrina Manriquez on 10-13-2024 Hemoglobin Ql (U) Hemoglobin [Presence ] in Urine by Test strip Negative [facility] Hemoglobin [Mass/volume] in BloodOrdered By: Sabrina Manriquez on 10-13-2024 Hemoglobin (Bld) [Mass/Vol] Hemoglobin [Mass/volume] in Blood 13.0-17.0 [facility] Hyaline casts [#/area] in Ur ine sediment by Automated countOrdered By: Sabrina Manriquez on 10-13-2024 Hyaline casts Auto (Urine sed) [#/Area] Hyaline casts [#/area] in Urine sediment by Automated count 0-8 [facility] Ketones Test strip Ql (U)Ord ered By: Sabrina Manriquez on 10-13-2024 Ketones Ql (U) Ketones [Presence] i n Urine by Test strip Negative [facility] Leukocyte esterase [Presence ] in Urine by Test stripOrdered By: Sabrina Manriquez on 10-13-2024 Leukocyte esterase Test strip Ql (U) Leukocyte esterase [Presence] in Urine by Test strip Negative [facility] Leukocytes [#/area] in Urine sediment by Automated countOrdered By: Sabrina Manriquez on 10-13-2024 WBC Auto (Urine sed) [#/Area] Leukocytes [#/area] in Urine sediment by Automated count 0-4 [facility] Leukocytes [#/volume] correc leah for nucleated erythrocytes in Blood by Automated counOrdered By: Sabrina Manriquez on 10-13-2024 WBC corrected for nucl RBC Auto (Bld) [#/Vol] Leukocytes [#/volume] corrected for nucleated erythrocytes in Blood by Automated coun 4.1-10.5 [facility] Lymphocytes Auto (Bld) [#/Vo l]Ordered By: Sabrina Manriquez on 10-13-2024 Lymphocytes (Bld) [#/Vol] Lymphocytes [#/volume] in Blood by Automated count 1.00-4.8 [facility] Lymphocytes/100 WBC Auto (Bl d)Ordered By: Sabrina Manriquez on 10-13-2024 Lymphocytes/100 WBC (Bld) Lymphocytes/100 leukocytes in Blood by Automated count . [facility] MCH Auto (RBC) [Entitic mass ]Ordered By: Sabrina Manriquez on 10-13-2024 MCH (RBC) [Entitic mass] MCH [Entitic mass] by Automated count 27.5-35.2 [facility] MCHC Auto (RBC) [Mass/Vol]Or dered By: Sabrina Manriquez on 10-13-2024 MCHC (RBC) [Mass/Vol] MCHC [Mass/volume] by Automated count 32.5-35.6 [facility] MCV Auto (RBC) [Entitic vol] Ordered By: Sabrina Manriquez on 10-13-2024 MCV (RBC) [Entitic vol] MCV [Entitic volume] by Automated count 83.5-101 [facility] Monocytes Auto (Bld) [#/Vol] Ordered By: Sabrina Manriquez on 10-13-2024 Monocytes (Bld) [#/Vol] Automated blood monocyte count 0.0-0.8 [facility] Monocytes/100 WBC Auto (Bld) Ordered By: Sabrina Manriquez on 10-13-2024 Monocytes/100 WBC (Bld) Automated monocyte % . [facility] Mucus [Presence] in Urine by AutomatedOrdered By: Sabrina Manriquez on 10-13-2024 Mucus Auto Ql (U) Mucus [Presence] in Urine by Automated Abnormal [facility] Neutrophils Auto (Bld) [#/Vo l]Ordered By: Sabrina Manriquez on 10-13-2024 Neutrophils (Bld) [#/Vol] Neutrophils [#/volume] in Blood by Automated count 1.8-7.7 [facility] Neutrophils/100 WBC Auto (Bl d)Ordered By: Sabrina Manriquez on 10-13-2024 Neutrophils/100 WBC (Bld) Automated neutrophil % . [facility] Nitrite Test strip Ql (U)Ord ered By: Sabrina Manriquez on 10-13-2024 Nitrite Ql (U) Nitrite [Presence] i n Urine by Test strip Negative [facility] No Panel InformationOrdered By: Sabrina Manriquez on 10-13-2024 Estimated GFR (CKD-EPI) > 60.0 mL/Min [facility] Creatinine Clearance (Chem N/A [facility] Nucleated erythrocytes [Pres ence] in Blood by Automated countOrdered By: Sabrina Manriquez on 10-13-2024 Nucleated RBC Auto Ql (Bld) Nucleated erythrocytes [Presence] in Blood by Automated count 0-0.5 [facility] Platelet mean volume Auto (B ld) [Entitic vol]Ordered By: Sabrina Manriquez on 10-13-2024 Platelet mean volume (Bld) [Entitic vol] Platelet mean volume [Entitic volume] in Blood by Automated count 6.6-10.1 [facility] Platelets Auto (Bld) [#/Vol] Ordered By: Sabrina Manriquez on 10-13-2024 Platelets (Bld) [#/Vol] Platelets [#/volume] in Blood by Automated count 150-450 [facility] Potassium [Moles/volume] in Serum or PlasmaOrdered By: Sabrina Manriquez on 10-13-2024 Potassium [Moles/Vol] Potassium [Moles/v olume] in Serum or Plasma 3.5-5.1 [facility] Protein Test strip (U) [Mass /Vol]Ordered By: Sabrina Manriquez on 10-13-2024 Protein (U) [Mass/Vol] Protein [Mass/vol ume] in Urine by Test strip High Negative [facility] Protein [Mass/volume] in Ser um or PlasmaOrdered By: Sabrina Manriquez on 10-13-2024 Protein [Mass/Vol] Protein [Mass/volume ] in Serum or Plasma 6.4-8.9 [facility] RBC Auto (Bld) [#/Vol]Ordere d By: Sabrina Manriquez on 10-13-2024 RBC (Bld) [#/Vol] Erythrocytes [#/volu me] in Blood by Automated count 3.90-5.60 [facility] Serum or plasma albumin/glob ulin mass ratioOrdered By: Sabrina Manriquez on 10-13-2024 Albumin/Globulin [Mass ratio] Serum or plasma albumin/globulin mass ratio [facility] Serum or plasma anion gap de terminationOrdered By: Sabrina Manriquez on 10-13-2024 Anion gap [Moles/Vol] Serum or plasma an ion gap determination 6.0-15.0 [facility] Sodium [Moles/volume] in Ser um or PlasmaOrdered By: Sabrina Manriquez on 10-13-2024 Sodium [Moles/Vol] Sodium [Moles/volume ] in Serum or Plasma 136-145 [facility] Specific gravity Test strip (U) [Rel density]Ordered By: Sabrina Manriquez on 10-13-2024 Specific gravity (U) [Rel density] Specific gravity of Urine by Test strip 1.001-1.03 0 [facility] Urea nitrogen [Mass/volume] in Serum or PlasmaOrdered By: Sabrina Manriquez on 10-13-2024 Urea nitrogen [Mass/Vol] Urea nitrogen [Mass/volume] in Serum or Plasma 7-25 [facility] Urobilinogen Test strip (U) [Mass/Vol]Ordered By: Sabrina Manirquez on 10-13-2024 Urobilinogen (U) [Mass/Vol] Urobilinogen [Mass/volume] in Urine by Test strip Normal [facility] WBC Auto (Bld) [#/Vol]Ordere d By: Sabrina Manriquez on 04-22-2025 WBC (Bld) [#/Vol] Leukocytes [#/volume ] in Blood by Automated count 4.1-10.5 [facility] pH Test strip (U)Ordered By: Sabrina Manriquez on 10-13-2024 pH (U) pH of Urine by Test strip 5.0-9.0 [facility] Ambulatory Visit Summaryon 1 Ambulatory Visit Summary [...] Shun MACHADO MD Where: [facility] [address] [place] [address]- You Need to Schedule the Following Appointments Follow Up with CHRIS RIVERA, BREN Rodriguez When: Where: [address] [place] [address]- Medications What How Much When Instructions Unchanged [...] tips fo (more content not included)... Normal [facility] Urology Office/Clinic Noteon 04-13-2024 Urology Office/Clinic [...] Shun Mirza, URL [address] [place] [id number]- Additional Instructions: 1 yr with [employer]UB and [...] with voice recognition artificial intelligence software, specifically KeyEffx, SmashChart and or [employer]. Substitutions may have occurred due to the [...] Kidney stone (more content not included)... [facility] Comment on above: Result Comment: Elec tronically Signed By: Shun MACHADO MD\.br\Date and Time Signed: 04/13/24 10:19 EDT\.br\Electronically Co-Signed By: Mary Alicea\.br\Date and Time Co-Signed: 04/13/24 10:15 EDT Alanine aminotransferase [En zymatic activity/volume] in Serum or PlasmaOrdered By: Sabrina Manriquez on 03-04-2024 ALT [Catalytic activity/Vol] 27 U/L 7-52 [facility] Albumin [Mass/volume] in Ser um or Plasma by Bromocresol green (BCG) dye binding methoOrdered By: Sabrina Manriquez on 03-04-2024 Albumin BCG dye [Mass/Vol] 4.4 g/dL 3.5-5.7 [facility] Alkaline phosphatase [Enzyma tic activity/volume] in Serum or PlasmaOrdered By: Sabrina Manriquez on 03-04-2024 ALP [Catalytic activity/Vol] 92 U/L 34-104 [facility] Aspartate aminotransferase [ Enzymatic activity/volume] in Serum or PlasmaOrdered By: Sabrina Manriquez on 03-04-2024 AST [Catalytic activity/Vol] 21 U/L 13-39 [facility] Bacteria [Presence] in Urine by AutomatedOrdered By: Sabrina Manriquez on 03-04-2024 Bacteria Auto Ql (U) None seen [HPF] None Seen [facility] Basophils Auto (Bld) [#/Vol] Ordered By: Sabrina Manriquez on 03-04-2024 Basophils (Bld) [#/Vol] 0.0 10*3/uL 0.0-0.2 [facility] Basophils/100 WBC Auto (Bld) Ordered By: Sabrina Manriquez on 03-04-2024 Basophils/100 WBC (Bld) 0.6 % . [facility] Bilirubin Test strip Ql (U)O rdered By: Sabrina Manriquez on 03-04-2024 Bilirubin Ql (U) Negative Negative [facility] Bilirubin.total [Mass/volume ] in Serum or PlasmaOrdered By: Sabrina Manriquez on 03-04-2024 Bilirubin [Mass/Vol] 0.6 mg/dL 0.3-1.0 [facility] C reactive protein [Mass/vol ume] in Serum or PlasmaOrdered By: Sabrina Manriquez on 03-04-2024 CRP [Mass/Vol] < 0.5 mg/dL 0.0-0.5 [facility] Calcium [Mass/volume] in Ser um or PlasmaOrdered By: Sabrina Manriquez on 03-04-2024 Calcium [Mass/Vol] 9.2 mg/dL 8.6-10.3 [facility] Carbon dioxide, total [Moles /volume] in Serum or PlasmaOrdered By: Sabrina Manriquez on 03-04-2024 CO2 [Moles/Vol] 29.4 mmol/L 21.0-31.0 [facility] Chloride [Moles/volume] in S lenny or PlasmaOrdered By: Sabrina Manriquez on 03-04-2024 Chloride [Moles/Vol] 104 mmol/L 98-107 [facility] Color Auto (U)Ordered By: Emily Montiel on 03-04-2024 Color (U) Light-yellow Yellow [facility] Creatinine [Mass/volume] in Serum or PlasmaOrdered By: Sabrina Manriquez on 03-04-2024 Creatinine [Mass/Vol] 0.93 mg/dL 0.70-1.30 [facility] Eosinophils Auto (Bld) [#/Vo l]Ordered By: Sabrina Manriquez on 03-04-2024 Eosinophils (Bld) [#/Vol] 0.1 10*3/uL 0.0-0.45 [facility] Eosinophils/100 WBC Auto (Bl d)Ordered By: Sabrina Manriquez on 03-04-2024 Eosinophils/100 WBC (Bld) 1.3 % . [facility] Epithelial cells.squamous [# /area] in Urine sediment by Automated countOrdered By: Sabrina Manriquez on 03-04-2024 Epithelial cells.squamous Auto (Urine sed) [#/Area] N/A [facility] Erythrocyte distribution wid th Auto (RBC) [Ratio]Ordered By: Sabrina Manriquez on 03-04-2024 Erythrocyte distribution width (RBC) [Ratio] 13.6 % 12.0-14.8 [facility] Erythrocyte sedimentation ra te by Photometric methodOrdered By: Sabrina Manriquez on 03-04-2024 ESR Photometric method (Bld) [Velocity] 9 mm/hr 0-19 [facility] Erythrocytes [#/area] in Uri ne sediment by Automated countOrdered By: Sabrina Manriquez on 03-04-2024 RBC Auto (Urine sed) [#/Area] 1-2 [HPF] 0-4 [facility] Globulin Calc (S) [Mass/Vol] Ordered By: Sabrina Manriquez on 03-04-2024 Globulin (S) [Mass/Vol] 2.7 g/dL [facility] Glucose [Mass/volume] in Ser um or PlasmaOrdered By: Sabrina Manriquez on 03-04-2024 Glucose [Mass/Vol] 132 mg/dL High 70-100 [facility] Comment on above: ADA recommended refe rence rangeRandom Glucose Reference Range is dependent on time and content of last meal. Glucose of more than 200 mg/dL in a nonstressed, ambulatory subject supports the diagnosis of Diabetes Mellitus. Glucose [Mass/volume] in Uri ne by Test stripOrdered By: Sabrina Manriquez on 03-04-2024 Glucose Test strip (U) [Mass/Vol] Normal mg/dL Normal [facility] Hematocrit Auto (Bld) [Volum e fraction]Ordered By: Sabrina Manriquez on 03-04-2024 Hematocrit (Bld) [Volume fraction] 42.8 % 38.8-50.0 [facility] Hemoglobin Test strip Ql (U) Ordered By: Sabrina Manriquez on 03-04-2024 Hemoglobin Ql (U) Negative Negative [facility] Hemoglobin [Mass/volume] in BloodOrdered By: Sabrina Manriquez on 03-04-2024 Hemoglobin (Bld) [Mass/Vol] 14.6 g/dL 13.0-17.0 [facility] Hyaline casts [#/area] in Ur ine sediment by Automated countOrdered By: Sabrina Manriquez on 03-04-2024 Hyaline casts Auto (Urine sed) [#/Area] None [LPF] 0-8 [facility] Ketones Test strip Ql (U)Ord ered By: Sabrina Manriquez on 03-04-2024 Ketones Ql (U) Negative Negative [facility] Leukocyte esterase [Presence ] in Urine by Test stripOrdered By: Sabrina Manriquez on 03-04-2024 Leukocyte esterase Test strip Ql (U) Negative Negative [facility] Leukocytes [#/area] in Urine sediment by Automated countOrdered By: Sabrina Manriquez on 03-04-2024 WBC Auto (Urine sed) [#/Area] 1-2 [HPF] 0-4 [facility] Leukocytes [#/volume] correc leah for nucleated erythrocytes in Blood by Automated counOrdered By: Sabrina Manriquez on 03-04-2024 WBC corrected for nucl RBC Auto (Bld) [#/Vol] 5.1 10*3/uL 4.1-10.5 [facility] Lymphocytes Auto (Bld) [#/Vo l]Ordered By: Sabrina Manriquez on 03-04-2024 Lymphocytes (Bld) [#/Vol] 1.1 10*3/uL 1.00-4.8 [facility] Lymphocytes/100 WBC Auto (Bl d)Ordered By: Sabrina Manriquez on 03-04-2024 Lymphocytes/100 WBC (Bld) 20.8 % . [facility] MCH Auto (RBC) [Entitic mass ]Ordered By: Sabrina Manriquez on 03-04-2024 MCH (RBC) [Entitic mass] 32.2 pg 27.5-35.2 [facility] MCHC Auto (RBC) [Mass/Vol]Or dered By: Sabrina Manriquez on 03-04-2024 MCHC (RBC) [Mass/Vol] 34.2 g/dL 32.5-35.6 [facility] MCV Auto (RBC) [Entitic vol] Ordered By: Sabrina Manriquez on 03-04-2024 MCV (RBC) [Entitic vol] 94.2 fL 83.5-101 [facility] Monocytes Auto (Bld) [#/Vol] Ordered By: Sabrina Manriquez on 03-04-2024 Monocytes (Bld) [#/Vol] 0.3 10*3/uL 0.0-0.8 [facility] Monocytes/100 WBC Auto (Bld) Ordered By: Sabrina Manriquez on 03-04-2024 Monocytes/100 WBC (Bld) 6.6 % . [facility] Mucus [Presence] in Urine by AutomatedOrdered By: Sabrina Manriquez on 03-04-2024 Mucus Auto Ql (U) Rare [LPF] [facility] Neutrophils Auto (Bld) [#/Vo l]Ordered By: Sabrina Manriquez on 03-04-2024 Neutrophils (Bld) [#/Vol] 3.6 10*3/uL 1.8-7.7 [facility] Neutrophils/100 WBC Auto (Bl d)Ordered By: Sabrina Manriquez on 03-04-2024 Neutrophils/100 WBC (Bld) 70.7 % . [facility] Nitrite Test strip Ql (U)Ord ered By: Sabrina Manriquez on 03-04-2024 Nitrite Ql (U) Negative Negative [facility] No Panel InformationOrdered By: Sabrina Manriquez on 03-04-2024 Estimated GFR (CKD-EPI) > 60.0 mL/Min [facility] Creatinine Clearance (Chem N/A [facility] Nucleated erythrocytes [Pres ence] in Blood by Automated countOrdered By: Sabrina Manriquez on 03-04-2024 Nucleated RBC Auto Ql (Bld) 0.1 /100{WBC} 0-0.5 [facility] Platelet mean volume Auto (B ld) [Entitic vol]Ordered By: Sabrina Manriquez on 03-04-2024 Platelet mean volume (Bld) [Entitic vol] 9.1 fL 6.6-10.1 [facility] Platelets Auto (Bld) [#/Vol] Ordered By: Sabrina Manriquez on 03-04-2024 Platelets (Bld) [#/Vol] 235 10*3/uL 150-450 [facility] Potassium [Moles/volume] in Serum or PlasmaOrdered By: Sabrina Manriquez on 03-04-2024 Potassium [Moles/Vol] 4.2 mmol/L 3.5-5.1 [facility] Protein Test strip (U) [Mass /Vol]Ordered By: Sabrina Manriquez on 03-04-2024 Protein (U) [Mass/Vol] Trace mg/dL High Negative [facility] Protein [Mass/volume] in Ser um or PlasmaOrdered By: Sabrina Manriquez on 03-04-2024 Protein [Mass/Vol] 7.1 g/dL 6.4-8.9 [facility] RBC Auto (Bld) [#/Vol]Ordere d By: Sabrina Manriquez on 03-04-2024 RBC (Bld) [#/Vol] 4.54 10*6/uL 3.90-5.60 [facility] Serum or plasma albumin/glob ulin mass ratioOrdered By: Sabrina Manriquez on 03-04-2024 Albumin/Globulin [Mass ratio] 1.6 {ratio} [facility] Serum or plasma anion gap de terminationOrdered By: Sabrina Manriquez on 03-04-2024 Anion gap [Moles/Vol] 10.8 mmol/L 6.0-15.0 [facility] Sodium [Moles/volume] in Ser um or PlasmaOrdered By: Sabrina Manriquez on 03-04-2024 Sodium [Moles/Vol] 140 mmol/L 136-145 [facility] Specific gravity Test strip (U) [Rel density]Ordered By: Sabrina Manriquez on 03-04-2024 Specific gravity (U) [Rel density] 1.020 1.001-1.03 0 [facility] Urea nitrogen [Mass/volume] in Serum or PlasmaOrdered By: Sabrina Manriquez on 03-04-2024 Urea nitrogen [Mass/Vol] 18 mg/dL 7-25 [facility] Urine appearanceOrdered By: Sabrina Manriquez on 03-04-2024 Appearance (U) Clear Clear [facility] Urobilinogen Test strip (U) [Mass/Vol]Ordered By: Sabrina Manriquez on 03-04-2024 Urobilinogen (U) [Mass/Vol] Normal mg/dL Normal [facility] WBC Auto (Bld) [#/Vol]Ordere d By: Sabrina Manriquez on 03-04-2024 WBC (Bld) [#/Vol] 5.1 10*3/uL 4.1-10.5 [facility] pH Test strip (U)Ordered By: Sabrina Manriquez on 03-04-2024 pH (U) 5.5 [pH] 5.0-9.0 [facility] Alanine aminotransferase [En zymatic activity/volume] in Serum or PlasmaOrdered By: Sabrina Manriquez on 11-19-2023 ALT [Catalytic activity/Vol] 28 U/L 7-52 [facility] Albumin [Mass/volume] in Ser um or Plasma by Bromocresol green (BCG) dye binding methoOrdered By: Sabrina Manriquez on 11-19-2023 Albumin BCG dye [Mass/Vol] 4.1 g/dL 3.5-5.7 [facility] Alkaline phosphatase [Enzyma tic activity/volume] in Serum or PlasmaOrdered By: Sabrina Manriquez on 11-19-2023 ALP [Catalytic activity/Vol] 70 U/L 34-104 [facility] Aspartate aminotransferase [ Enzymatic activity/volume] in Serum or PlasmaOrdered By: Sabrina Manriquez on 11-19-2023 AST [Catalytic activity/Vol] 29 U/L 13-39 [facility] Automated epithelial cells c ount in urine sediment (number/area)Ordered By: Sabrina Manriquez on 11-19-2023 Epithelial cells Auto (Urine sed) [#/Area] None seen [HPF] 0-2 [facility] Bacteria [Presence] in Urine by AutomatedOrdered By: Sabrina Manriquez on 11-19-2023 Bacteria Auto Ql (U) None seen [HPF] None Seen [facility] Basophils Auto (Bld) [#/Vol] Ordered By: Sabrina Manriquez on 11-19-2023 Basophils (Bld) [#/Vol] 0.0 10*3/uL 0.0-0.2 [facility] Basophils/100 WBC Auto (Bld) Ordered By: Sabrina Manriquez on 11-19-2023 Basophils/100 WBC (Bld) 0.7 % . [facility] Bilirubin Test strip Ql (U)O rdered By: Sabrina Manriquez on 11-19-2023 Bilirubin Ql (U) Negative Negative [facility] Bilirubin.total [Mass/volume ] in Serum or PlasmaOrdered By: Sabrina Manriquez on 11-19-2023 Bilirubin [Mass/Vol] 0.5 mg/dL 0.3-1.0 [facility] C reactive protein [Mass/vol ume] in Serum or PlasmaOrdered By: Sabrina Manriquez on 11-19-2023 CRP [Mass/Vol] < 0.5 mg/dL 0.0-0.5 [facility] Calcium [Mass/volume] in Ser um or PlasmaOrdered By: Sabrina Manriquez on 11-19-2023 Calcium [Mass/Vol] 9.1 mg/dL 8.6-10.3 [facility] Carbon dioxide, total [Moles /volume] in Serum or PlasmaOrdered By: Sabrina Manriquez on 11-19-2023 CO2 [Moles/Vol] 30.2 mmol/L 21.0-31.0 [facility] Chloride [Moles/volume] in S lenny or PlasmaOrdered By: Sabrina Manriquez on 11-19-2023 Chloride [Moles/Vol] 105 mmol/L 98-107 [facility] Color Auto (U)Ordered By: Emily Montiel on 11-19-2023 Color (U) Yellow Yellow [facility] Creatinine [Mass/volume] in Serum or PlasmaOrdered By: Sabrina Manriquez on 11-19-2023 Creatinine [Mass/Vol] 0.97 mg/dL 0.70-1.30 [facility] Eosinophils Auto (Bld) [#/Vo l]Ordered By: Sabrina Manriquez on 11-19-2023 Eosinophils (Bld) [#/Vol] 0.1 10*3/uL 0.0-0.45 [facility] Eosinophils/100 WBC Auto (Bl d)Ordered By: Sabrina Manriquez on 11-19-2023 Eosinophils/100 WBC (Bld) 1.6 % . [facility] Erythrocyte distribution wid th Auto (RBC) [Ratio]Ordered By: Sabrina Manriquez on 11-19-2023 Erythrocyte distribution width (RBC) [Ratio] 13.7 % 12.0-14.8 [facility] Erythrocyte sedimentation ra te by Photometric methodOrdered By: Sabrina Manriquez on 11-19-2023 ESR Photometric method (Bld) [Velocity] 5 mm/hr 0-19 [facility] Erythrocytes [#/area] in Uri ne sediment by Automated countOrdered By: Sabrina Manriquez on 11-19-2023 RBC Auto (Urine sed) [#/Area] 0-1 [HPF] 0-4 [facility] Globulin Calc (S) [Mass/Vol] Ordered By: Sabrina Manriquez on 11-19-2023 Globulin (S) [Mass/Vol] 2.6 g/dL [facility] Glucose [Mass/volume] in Ser um or PlasmaOrdered By: Sabrina Manriquez on 11-19-2023 Glucose [Mass/Vol] 115 mg/dL 70-100 [facility] Comment on above: ADA recommended refe rence rangeRandom Glucose Reference Range is dependent on time and content of last meal. Glucose of more than 200 mg/dL in a nonstressed, ambulatory subject supports the diagnosis of Diabetes Mellitus. Hematocrit Auto (Bld) [Volum e fraction]Ordered By: Sabrina Manriquez on 11-19-2023 Hematocrit (Bld) [Volume fraction] 44.2 % 38.8-50.0 [facility] Hemoglobin [Mass/volume] in BloodOrdered By: Sabrina Manriquez on 11-19-2023 Hemoglobin (Bld) [Mass/Vol] 15.0 g/dL 13.0-17.0 [facility] Ketones Auto test strip (U) [Mass/Vol]Ordered By: Sabrina Manriquez on 11-19-2023 Ketones (U) [Mass/Vol] Negative Negative [facility] Laboratory - UrinalysisOrder ed By: Sabrina Manriquez on 11-19-2023 Hyaline casts LM Ql (Urine sed) None seen [LPF] 0-8 [facility] Leukocytes [#/area] in Urine sediment by Automated countOrdered By: Sabrina Manriquez on 11-19-2023 WBC Auto (Urine sed) [#/Area] 0-1 [HPF] 0-4 [facility] Leukocytes [#/volume] correc leah for nucleated erythrocytes in Blood by Automated counOrdered By: Sabrina Manriquez on 11-19-2023 WBC corrected for nucl RBC Auto (Bld) [#/Vol] 5.7 10*3/uL 4.1-10.5 [facility] Lymphocytes Auto (Bld) [#/Vo l]Ordered By: Sabrina Manriquez on 11-19-2023 Lymphocytes (Bld) [#/Vol] 1.1 10*3/uL 1.00-4.8 [facility] Lymphocytes/100 WBC Auto (Bl d)Ordered By: Sabrina Manriquez on 11-19-2023 Lymphocytes/100 WBC (Bld) 18.8 % . [facility] MCH Auto (RBC) [Entitic mass ]Ordered By: Sabrina Manriquez on 11-19-2023 MCH (RBC) [Entitic mass] 32.3 pg 27.5-35.2 [facility] MCHC Auto (RBC) [Mass/Vol]Or dered By: Sabrina Manriquez on 11-19-2023 MCHC (RBC) [Mass/Vol] 34.0 g/dL 32.5-35.6 [facility] MCV Auto (RBC) [Entitic vol] Ordered By: Sabrina Manriquez on 11-19-2023 MCV (RBC) [Entitic vol] 95.2 fL 83.5-101 [facility] Monocytes Auto (Bld) [#/Vol] Ordered By: Sabrina Manriquez on 11-19-2023 Monocytes (Bld) [#/Vol] 0.5 10*3/uL 0.0-0.8 [facility] Monocytes/100 WBC Auto (Bld) Ordered By: Sabrina Manriquez on 11-19-2023 Monocytes/100 WBC (Bld) 8.0 % . [facility] Neutrophils Auto (Bld) [#/Vo l]Ordered By: Sabrina Manriquez on 11-19-2023 Neutrophils (Bld) [#/Vol] 4.1 10*3/uL 1.8-7.7 [facility] Neutrophils/100 WBC Auto (Bl d)Ordered By: Sabrina Manriquez on 11-19-2023 Neutrophils/100 WBC (Bld) 70.9 % . [facility] Nitrite Test strip Ql (U)Ord ered By: Sabrina Manriquez on 11-19-2023 Nitrite Ql (U) Negative Negative [facility] No Panel InformationOrdered By: Sabrina Manriquez on 11-19-2023 Estimated GFR (CKD-EPI) > 60.0 mL/Min [facility] Creatinine Clearance (Chem N/A [facility] Nucleated erythrocytes [Pres ence] in Blood by Automated countOrdered By: Sabrina Manriquez on 11-19-2023 Nucleated RBC Auto Ql (Bld) 0.1 /100{WBC} 0-0.5 [facility] Platelet mean volume Auto (B ld) [Entitic vol]Ordered By: Sabrina Manriquez on 11-19-2023 Platelet mean volume (Bld) [Entitic vol] 9.3 fL 6.6-10.1 [facility] Platelets Auto (Bld) [#/Vol] Ordered By: Sabrina Manriquez on 11-19-2023 Platelets (Bld) [#/Vol] 220 10*3/uL 150-450 [facility] Potassium [Moles/volume] in Serum or PlasmaOrdered By: Sabrina Manriquez on 11-19-2023 Potassium [Moles/Vol] 4.4 mmol/L 3.5-5.1 [facility] Protein Auto test strip (U) [Mass/Vol]Ordered By: Sabrina Manriquez on 11-19-2023 Protein (U) [Mass/Vol] Negative Negative [facility] Protein [Mass/volume] in Ser um or PlasmaOrdered By: Sabrina Manriquez on 11-19-2023 Protein [Mass/Vol] 6.7 g/dL 6.4-8.9 [facility] RBC Auto (Bld) [#/Vol]Ordere d By: Sabrina Manriquez on 11-19-2023 RBC (Bld) [#/Vol] 4.64 10*6/uL 3.90-5.60 [facility] Serum or plasma albumin/glob ulin mass ratioOrdered By: Sabrina Manriquez on 11-19-2023 Albumin/Globulin [Mass ratio] 1.6 {ratio} [facility] Serum or plasma anion gap de terminationOrdered By: Sabrina Manriquez on 11-19-2023 Anion gap [Moles/Vol] 9.2 mmol/L 6.0-15.0 [facility] Sodium [Moles/volume] in Ser um or PlasmaOrdered By: Sabrina Manriquez on 11-19-2023 Sodium [Moles/Vol] 140 mmol/L 136-145 [facility] Specific gravity Auto test s trip (U) [Rel density]Ordered By: Sabrina Manriquez on 11-19-2023 Specific gravity (U) [Rel density] 1.021 1.001-1.03 0 [facility] Urea nitrogen [Mass/volume] in Serum or PlasmaOrdered By: Sabrina Manriquez on 11-19-2023 Urea nitrogen [Mass/Vol] 17 mg/dL 01-15 [facility] Urine clarity by refractomet ry automatedOrdered By: Sabrina Manriquez on 11-19-2023 Clarity Refractometry automated (U) Clear Clear [facility] Urine glucose measurement by automated test strip (mass/volume)Ordered By: Sabrina Manriquez on 11-19-2023 Glucose Auto test strip (U) [Mass/Vol] Normal mg/dL Normal [facility] Urine hemoglobin detection b y automated test stripOrdered By: Sabrina Manriquez on 11-19-2023 Hemoglobin Auto test strip Ql (U) Negative Negative [facility] Urine leukocyte esterase det ection by automated test stripOrdered By: Sabrina Manriquez on 11-19-2023 Leukocyte esterase Auto test strip Ql (U) Negative Negative [facility] Urobilinogen Auto test strip (U) [Mass/Vol]Ordered By: Sabrina Manriquez on 11-19-2023 Urobilinogen (U) [Mass/Vol] Normal mg/dL Normal [facility] WBC Auto (Bld) [#/Vol]Ordere d By: Sabrina Manriquez on 11-19-2023 WBC (Bld) [#/Vol] 5.7 10*3/uL 4.1-10.5 [facility] pH Auto test strip (U)Ordere d By: Sabrina Manriquez on 11-19-2023 pH (U) 5.5 [pH] 5.0-9.0 [facility] Alanine aminotransferase [En zymatic activity/volume] in Serum or PlasmaOrdered By: Sabrina Manriquez on 07-18-2023 ALT [Catalytic activity/Vol] 32 U/L [facility] Albumin [Mass/volume] in Ser um or Plasma by Bromocresol green (BCG) dye binding methoOrdered By: Sabrina Manriquez on 07-18-2023 Albumin BCG dye [Mass/Vol] 4.3 g/dL 3.5-5.7 [facility] Alkaline phosphatase [Enzyma tic activity/volume] in Serum or PlasmaOrdered By: Sabrina Manriquez on 07-18-2023 ALP [Catalytic activity/Vol] 78 U/L 34-104 [facility] Aspartate aminotransferase [ Enzymatic activity/volume] in Serum or PlasmaOrdered By: Sabrina Manriquez on 07-18-2023 AST [Catalytic activity/Vol] 28 U/L 13-39 [facility] Automated erythrocytes count in urine sediment (number/area)Ordered By: Sabrina Manriquez on 07-18-2023 RBC Auto (Urine sed) [#/Area] 0-1 [HPF] 0-4 [facility] Automated leukocytes count i n urine sediment (number/area)Ordered By: Sabrina Manriquez on 07-18-2023 WBC Auto (Urine sed) [#/Area] 0-1 [HPF] 0-4 [facility] Basophils Auto (Bld) [#/Vol] Ordered By: Sabrina Manriquez on 07-18-2023 Basophils (Bld) [#/Vol] 0.1 10*3/uL 0.0-0.2 [facility] Basophils/100 WBC Auto (Bld) Ordered By: Sabrina Manriquez on 07-18-2023 Basophils/100 WBC (Bld) 0.8 % . [facility] Bilirubin Test strip Ql (U)O rdered By: Sabrina Manriquez on 07-18-2023 Bilirubin Ql (U) Negative Negative [facility] Bilirubin.total [Mass/volume ] in Serum or PlasmaOrdered By: Sabrina Manriquez on 07-18-2023 Bilirubin [Mass/Vol] 0.5 mg/dL 0.3-1.0 [facility] C reactive protein [Mass/vol ume] in Serum or PlasmaOrdered By: Sabrina Manriquez on 07-18-2023 CRP [Mass/Vol] < 0.5 mg/dL 0.0-0.5 [facility] Calcium [Mass/volume] in Ser um or PlasmaOrdered By: Sabrina Manriquez on 07-18-2023 Calcium [Mass/Vol] 9.2 mg/dL 8.6-10.3 [facility] Carbon dioxide, total [Moles /volume] in Serum or PlasmaOrdered By: Sabrina Manriquez on 07-18-2023 CO2 [Moles/Vol] 30.1 mmol/L 21.0-31.0 [facility] Chloride [Moles/volume] in S lenny or PlasmaOrdered By: Sabrina Manriquez on 07-18-2023 Chloride [Moles/Vol] 105 mmol/L 98-107 [facility] Color Auto (U)Ordered By: Emily Montiel on 07-18-2023 Color (U) Yellow Yellow [facility] Creatinine [Mass/volume] in Serum or PlasmaOrdered By: Sabrina Manriquez on 07-18-2023 Creatinine [Mass/Vol] 0.93 mg/dL 0.70-1.30 [facility] Eosinophils Auto (Bld) [#/Vo l]Ordered By: Sabrina Manriquez on 07-18-2023 Eosinophils (Bld) [#/Vol] 0.0 10*3/uL 0.0-0.45 [facility] Eosinophils/100 WBC Auto (Bl d)Ordered By: Sabrina Manriquez on 07-18-2023 Eosinophils/100 WBC (Bld) 0.7 % . [facility] Erythrocyte distribution wid th Auto (RBC) [Ratio]Ordered By: Sabrina Manriquez on 07-18-2023 Erythrocyte distribution width (RBC) [Ratio] 13.9 % 12.0-14.8 [facility] Erythrocyte sedimentation ra te by Photometric methodOrdered By: Sabrina Manriquez on 07-18-2023 ESR Photometric method (Bld) [Velocity] 7 mm/hr 0-19 [facility] Globulin Calc (S) [Mass/Vol] Ordered By: Sabrina Manriquez on 07-18-2023 Globulin (S) [Mass/Vol] 2.5 g/dL [facility] Glucose [Mass/volume] in Ser um or PlasmaOrdered By: Sabrina Manriquez on 07-18-2023 Glucose [Mass/Vol] 89 mg/dL 70-100 [facility] Comment on above: ADA recommended refe rence rangeRandom Glucose Reference Range is dependent on time and content of last meal. Glucose of more than 200 mg/dL in a nonstressed, ambulatory subject supports the diagnosis of Diabetes Mellitus. Hematocrit Auto (Bld) [Volum e fraction]Ordered By: Sabrina Manriquez on 07-18-2023 Hematocrit (Bld) [Volume fraction] 44.3 % 38.8-50.0 [facility] Hemoglobin [Mass/volume] in BloodOrdered By: Sabrina Manriquez on 07-18-2023 Hemoglobin (Bld) [Mass/Vol] 15.2 g/dL 13.0-17.0 [facility] Ketones Auto test strip (U) [Mass/Vol]Ordered By: Sabrina Manriquez on 07-18-2023 Ketones (U) [Mass/Vol] Trace Negative [facility] - UrinalysisOrder ed By: Sabrina Manriquez on 07-18-2023 Hyaline casts LM Ql (Urine sed) None seen [LPF] 0-8 [facility] Leukocytes [#/volume] correc leah for nucleated erythrocytes in Blood by Automated counOrdered By: Sabrina Manriquez on 07-18-2023 WBC corrected for nucl RBC Auto (Bld) [#/Vol] 6.3 10*3/uL 4.1-10.5 [facility] Lymphocytes Auto (Bld) [#/Vo l]Ordered By: Sabrina Manriquez on 07-18-2023 Lymphocytes (Bld) [#/Vol] 0.9 10*3/uL 1.00-4.8 [facility] Lymphocytes/100 WBC Auto (Bl d)Ordered By: Sabrina Manriquez on 07-18-2023 Lymphocytes/100 WBC (Bld) 15.1 % . [facility] MCH Auto (RBC) [Entitic mass ]Ordered By: Sabrina Manriquez on 07-18-2023 MCH (RBC) [Entitic mass] 32.3 pg 27.5-35.2 [facility] MCHC Auto (RBC) [Mass/Vol]Or dered By: Sabrina Manriquez on 07-18-2023 MCHC (RBC) [Mass/Vol] 34.2 g/dL 32.5-35.6 [facility] MCV Auto (RBC) [Entitic vol] Ordered By: Sabrina Manriquez on 07-18-2023 MCV (RBC) [Entitic vol] 94.4 fL 83.5-101 [facility] Monocytes Auto (Bld) [#/Vol] Ordered By: Sabrina Manriquez on 07-18-2023 Monocytes (Bld) [#/Vol] 0.6 10*3/uL 0.0-0.8 [facility] Monocytes/100 WBC Auto (Bld) Ordered By: Sabrina Manriquez on 07-18-2023 Monocytes/100 WBC (Bld) 8.9 % . [facility] Neutrophils Auto (Bld) [#/Vo l]Ordered By: Sabrina Manriquez on 07-18-2023 Neutrophils (Bld) [#/Vol] 4.7 10*3/uL 1.8-7.7 [facility] Neutrophils/100 WBC Auto (Bl d)Ordered By: Sabrina Manriquez on 07-18-2023 Neutrophils/100 WBC (Bld) 74.5 % . [facility] Nitrite Test strip Ql (U)Ord ered By: Sabrina Manriquez on 07-18-2023 Nitrite Ql (U) Negative Negative [facility] No Panel InformationOrdered By: Sabrina Manriquez on 07-18-2023 Estimated GFR (CKD-EPI) > 60.0 mL/Min [facility] Creatinine Clearance (Chem N/A [facility] Nucleated erythrocytes [Pres ence] in Blood by Automated countOrdered By: Sabrina Manriquez on 07-18-2023 Nucleated RBC Auto Ql (Bld) 0.1 /100{WBC} 0-0.5 [facility] Platelet mean volume Auto (B ld) [Entitic vol]Ordered By: Sabrina Manriquez on 07-18-2023 Platelet mean volume (Bld) [Entitic vol] 8.8 fL 6.6-10.1 [facility] Platelets Auto (Bld) [#/Vol] Ordered By: Sabrina Manriquez on 07-18-2023 Platelets (Bld) [#/Vol] 235 10*3/uL 150-450 [facility] Potassium [Moles/volume] in Serum or PlasmaOrdered By: Sabrina Manriquez on 07-18-2023 Potassium [Moles/Vol] 4.1 mmol/L 3.5-5.1 [facility] Protein Auto test strip (U) [Mass/Vol]Ordered By: Sabrina Manriquez on 07-18-2023 Protein (U) [Mass/Vol] Negative Negative [facility] Protein [Mass/volume] in Ser um or PlasmaOrdered By: Sabrina Manriquez on 07-18-2023 Protein [Mass/Vol] 6.8 g/dL 6.4-8.9 [facility] RBC Auto (Bld) [#/Vol]Ordere d By: Sabrina Manriquez on 07-18-2023 RBC (Bld) [#/Vol] 4.69 10*6/uL 3.90-5.60 [facility] Serum or plasma albumin/glob ulin mass ratioOrdered By: Sabrina Manriquez on 07-18-2023 Albumin/Globulin [Mass ratio] 1.7 {ratio} [facility] Serum or plasma anion gap de terminationOrdered By: Sabrina Manriquez on 07-18-2023 Anion gap [Moles/Vol] 9.0 mmol/L 6.0-15.0 [facility] Sodium [Moles/volume] in Ser um or PlasmaOrdered By: Sabrina Manriquez on 07-18-2023 Sodium [Moles/Vol] 140 mmol/L 136-145 [facility] Specific gravity Auto test s trip (U) [Rel density]Ordered By: Sabrina Manriquez on 07-18-2023 Specific gravity (U) [Rel density] 1.023 1.001-1.03 0 [facility] Squamous epithelial cells de tection in urine sediment by light microscopyOrdered By: Sabrina Manriquez on 07-18-2023 Epithelial cells.squamous LM Ql (Urine sed) None seen [HPF] 0-2 [facility] Urea nitrogen [Mass/volume] in Serum or PlasmaOrdered By: Sabrina Manriquez on 07-18-2023 Urea nitrogen [Mass/Vol] 22 mg/dL 7 [facility] Urine bacteria detection by automated methodOrdered By: Sabrina Manriquez on 07-18-2023 Bacteria Auto Ql (U) None seen None Seen [facility] Urine clarity by refractomet ry automatedOrdered By: Sabrina Manriquez on 07-18-2023 Clarity Refractometry automated (U) Clear Clear [facility] Urine glucose measurement by automated test strip (mass/volume)Ordered By: Sabrina Manriquez on 07-18-2023 Glucose Auto test strip (U) [Mass/Vol] Normal mg/dL Normal [facility] Urine hemoglobin detection b y automated test stripOrdered By: Sabrina Manriquez on 07-18-2023 Hemoglobin Auto test strip Ql (U) Negative Negative [facility] Urine leukocyte esterase det ection by automated test stripOrdered By: Sabrina Manriquez on 07-18-2023 Leukocyte esterase Auto test strip Ql (U) Negative Negative [facility] Urobilinogen Auto test strip (U) [Mass/Vol]Ordered By: Sabrina Manriquez on 07-18-2023 Urobilinogen (U) [Mass/Vol] Normal mg/dL Normal [facility] WBC Auto (Bld) [#/Vol]Ordere d By: Sabrina Manriquez on 07-18-2023 WBC (Bld) [#/Vol] 6.3 10*3/uL 4.1-10.5 [facility] pH Auto test strip (U)Ordere d By: Sabrina Manriquez on 07-18-2023 pH (U) 5.5 [pH] 5.0-9.0 [facility] CNOVon 03-12-2023 CNOV Office Visit (ORFTMN ) -------- JAY CARR ([id number]) 1960 M Date Time Provider Department 03/12/23 [...] No PCP: Dania Armstrong MD [address] [facility] [id number] FELLOW / RESIDENT: No fellow or resident assisted in th (more content not included)... Normal [facility] Alanine aminotransferase [En zymatic activity/volume] in Serum or PlasmaOrdered By: Hudson De Leon on 02-19-2023 ALT [Catalytic activity/Vol] 24 U/L 7-52 [facility] Albumin [Mass/volume] in Ser um or Plasma by Bromocresol green (BCG) dye binding methoOrdered By: Hudson De Leon on 02-19-2023 Albumin BCG dye [Mass/Vol] 4.1 g/dL 3.5-5.7 [facility] Alkaline phosphatase [Enzyma tic activity/volume] in Serum or PlasmaOrdered By: Hudson De Leon on 02-19-2023 ALP [Catalytic activity/Vol] 90 U/L 34-104 [facility] Aspartate aminotransferase [ Enzymatic activity/volume] in Serum or PlasmaOrdered By: Hudson De Leon on 02-19-2023 AST [Catalytic activity/Vol] 27 U/L 13-39 [facility] Automated erythrocytes count in urine sediment (number/area)Ordered By: Hudson De Leon on 02-19-2023 RBC Auto (Urine sed) [#/Area] 0-1 [HPF] 0-4 [facility] Automated leukocytes count i n urine sediment (number/area)Ordered By: Hudson De Leon on 02-19-2023 WBC Auto (Urine sed) [#/Area] None seen [HPF] 0-4 [facility] Basophils Auto (Bld) [#/Vol] Ordered By: Hudson De Leon on 02-19-2023 Basophils (Bld) [#/Vol] 0.0 10*3/uL 0.0-0.2 [facility] Basophils/100 WBC Auto (Bld) Ordered By: Hudson De Leon on 02-19-2023 Basophils/100 WBC (Bld) 0.7 % . [facility] Bilirubin Test strip Ql (U)O rdered By: Hudson De Leon on 02-19-2023 Bilirubin Ql (U) Negative Negative [facility] Bilirubin.total [Mass/volume ] in Serum or PlasmaOrdered By: Hudson De Leon on 02-19-2023 Bilirubin [Mass/Vol] 0.6 mg/dL 0.3-1.0 [facility] Calcium [Mass/volume] in Ser um or PlasmaOrdered By: Hudson De Leon on 02-19-2023 Calcium [Mass/Vol] 9.0 mg/dL 8.6-10.3 [facility] Carbon dioxide, total [Moles /volume] in Serum or PlasmaOrdered By: Hudson De Leon on 02-19-2023 CO2 [Moles/Vol] 29.6 mmol/L 21.0-31.0 [facility] Chloride [Moles/volume] in S lenny or PlasmaOrdered By: Hudson De Leon on 02-19-2023 Chloride [Moles/Vol] 105 mmol/L 98-107 [facility] Color Auto (U)Ordered By: Jessica De Leon on 02-19-2023 Color (U) Yellow Yellow [facility] Creatinine [Mass/volume] in Serum or PlasmaOrdered By: Hudson De Leon on 02-19-2023 Creatinine [Mass/Vol] 0.95 mg/dL 0.70-1.30 [facility] Eosinophils Auto (Bld) [#/Vo l]Ordered By: Hudson De Leon on 02-19-2023 Eosinophils (Bld) [#/Vol] 0.0 10*3/uL 0.0-0.45 [facility] Eosinophils/100 WBC Auto (Bl d)Ordered By: Hudson De Leon on 02-19-2023 Eosinophils/100 WBC (Bld) 1.0 % . [facility] Erythrocyte distribution wid th Auto (RBC) [Ratio]Ordered By: Hudson De Leon on 02-19-2023 Erythrocyte distribution width (RBC) [Ratio] 13.6 % 12.0-14.8 [facility] Erythrocyte sedimentation ra te by Photometric methodOrdered By: Hudson De Leon on 02-19-2023 ESR Photometric method (Bld) [Velocity] 7 mm/hr 0-19 [facility] Globulin Calc (S) [Mass/Vol] Ordered By: Hudson De Leon on 02-19-2023 Globulin (S) [Mass/Vol] 2.6 g/dL [facility] Glucose [Mass/volume] in Ser um or PlasmaOrdered By: Hudson De Leon on 02-19-2023 Glucose [Mass/Vol] 108 mg/dL 70-100 [facility] Comment on above: ADA recommended refe rence rangeRandom Glucose Reference Range is dependent on time and content of last meal. Glucose of more than 200 mg/dL in a nonstressed, ambulatory subject supports the diagnosis of Diabetes Mellitus. Hematocrit Auto (Bld) [Volum e fraction]Ordered By: Hudson De Leon on 02-19-2023 Hematocrit (Bld) [Volume fraction] 42.3 % 38.8-50.0 [facility] Hemoglobin [Mass/volume] in BloodOrdered By: Hudson De Leon on 02-19-2023 Hemoglobin (Bld) [Mass/Vol] 14.3 g/dL 13.0-17.0 [facility] Ketones Auto test strip (U) [Mass/Vol]Ordered By: Hudson De Leon on 02-19-2023 Ketones (U) [Mass/Vol] Negative Negative [facility] - UrinalysisOrder ed By: Hudson De Leon on 02-19-2023 Hyaline casts LM Ql (Urine sed) None seen [LPF] 0-8 [facility] Leukocytes [#/volume] correc leah for nucleated erythrocytes in Blood by Automated counOrdered By: Hudson De Leon on 02-19-2023 WBC corrected for nucl RBC Auto (Bld) [#/Vol] 4.7 10*3/uL 4.1-10.5 [facility] Lymphocytes Auto (Bld) [#/Vo l]Ordered By: Hudson De Leon on 02-19-2023 Lymphocytes (Bld) [#/Vol] 0.9 10*3/uL 1.00-4.8 [facility] Lymphocytes/100 WBC Auto (Bl d)Ordered By: Hudson De Leon on 02-19-2023 Lymphocytes/100 WBC (Bld) 18.5 % . [facility] MCH Auto (RBC) [Entitic mass ]Ordered By: Husdon De Leon on 02-19-2023 MCH (RBC) [Entitic mass] 31.5 pg 27.5-35.2 [facility] MCHC Auto (RBC) [Mass/Vol]Or dered By: Hudson De Leon on 02-19-2023 MCHC (RBC) [Mass/Vol] 33.9 g/dL 32.5-35.6 [facility] MCV Auto (RBC) [Entitic vol] Ordered By: Hudson De Leon on 02-19-2023 MCV (RBC) [Entitic vol] 93.0 fL 83.5-101 [facility] Monocytes Auto (Bld) [#/Vol] Ordered By: Hudson De Leon on 02-19-2023 Monocytes (Bld) [#/Vol] 0.4 10*3/uL 0.0-0.8 [facility] Monocytes/100 WBC Auto (Bld) Ordered By: Hudson De Leon on 02-19-2023 Monocytes/100 WBC (Bld) 8.1 % . [facility] Neutrophils Auto (Bld) [#/Vo l]Ordered By: Hudson De Leon on 02-19-2023 Neutrophils (Bld) [#/Vol] 3.4 10*3/uL 1.8-7.7 [facility] Neutrophils/100 WBC Auto (Bl d)Ordered By: Hudson De Leon on 02-19-2023 Neutrophils/100 WBC (Bld) 71.7 % . [facility] Nitrite Test strip Ql (U)Ord ered By: Hudson De Leon on 02-19-2023 Nitrite Ql (U) Negative Negative [facility] No Panel InformationOrdered By: Hudson De Leon on 02-19-2023 Estimated GFR (CKD-EPI) > 60.0 mL/Min [facility] Creatinine Clearance (Chem N/A [facility] Nucleated erythrocytes [Pres ence] in Blood by Automated countOrdered By: Hudson De Leon on 02-19-2023 Nucleated RBC Auto Ql (Bld) 0.1 /100{WBC} 0-0.5 [facility] Platelet mean volume Auto (B ld) [Entitic vol]Ordered By: Hudson De Leon on 02-19-2023 Platelet mean volume (Bld) [Entitic vol] 9.0 fL 6.6-10.1 [facility] Platelets Auto (Bld) [#/Vol] Ordered By: Hudson De Leon on 02-19-2023 Platelets (Bld) [#/Vol] 198 10*3/uL 150-450 [facility] Potassium [Moles/volume] in Serum or PlasmaOrdered By: Hudson De Leon on 02-19-2023 Potassium [Moles/Vol] 4.0 mmol/L 3.5-5.1 [facility] Protein Auto test strip (U) [Mass/Vol]Ordered By: Hudson De Leon on 02-19-2023 Protein (U) [Mass/Vol] Negative Negative [facility] Protein [Mass/volume] in Ser um or PlasmaOrdered By: Hudson De Leon on 02-19-2023 Protein [Mass/Vol] 6.7 g/dL 6.4-8.9 [facility] RBC Auto (Bld) [#/Vol]Ordere d By: Hudson De Leon on 02-19-2023 RBC (Bld) [#/Vol] 4.55 10*6/uL 3.90-5.60 [facility] Serum or plasma albumin/glob ulin mass ratioOrdered By: Hudson De Leon on 02-19-2023 Albumin/Globulin [Mass ratio] 1.6 {ratio} [facility] Serum or plasma anion gap de terminationOrdered By: Hudson De Leon on 02-19-2023 Anion gap [Moles/Vol] 9.4 mmol/L 6.0-15.0 [facility] Sodium [Moles/volume] in Ser um or PlasmaOrdered By: Hudson De Leon on 02-19-2023 Sodium [Moles/Vol] 140 mmol/L 136-145 [facility] Specific gravity Auto test s trip (U) [Rel density]Ordered By: Hudson De Leon on 02-19-2023 Specific gravity (U) [Rel density] 1.018 1.001-1.03 0 [facility] Squamous epithelial cells de tection in urine sediment by light microscopyOrdered By: Hudson De Leon on 02-19-2023 Epithelial cells.squamous LM Ql (Urine sed) None seen [HPF] 0-2 [facility] Urea nitrogen [Mass/volume] in Serum or PlasmaOrdered By: Hudson De Leon on 02-19-2023 Urea nitrogen [Mass/Vol] 16 mg/dL 7- [facility] Urine bacteria detection by automated methodOrdered By: Hudson De Leon on 02-19-2023 Bacteria Auto Ql (U) None seen None Seen [facility] Urine clarity by refractomet ry automatedOrdered By: Hudson De Leon on 02-19-2023 Clarity Refractometry automated (U) Clear Clear [facility] Urine glucose measurement by automated test strip (mass/volume)Ordered By: Hudson De Leon on 02-19-2023 Glucose Auto test strip (U) [Mass/Vol] Normal mg/dL Normal [facility] Urine hemoglobin detection b y automated test stripOrdered By: Hudson De Leon on 02-19-2023 Hemoglobin Auto test strip Ql (U) Negative Negative [facility] Urine leukocyte esterase det ection by automated test stripOrdered By: Hudson De Leon on 02-19-2023 Leukocyte esterase Auto test strip Ql (U) Negative Negative [facility] Urobilinogen Auto test strip (U) [Mass/Vol]Ordered By: Hudson De Leon on 02-19-2023 Urobilinogen (U) [Mass/Vol] Normal mg/dL Normal [facility] WBC Auto (Bld) [#/Vol]Ordere d By: Hudson De Leon on 02-19-2023 WBC (Bld) [#/Vol] 4.7 10*3/uL 4.1-10.5 [facility] pH Auto test strip (U)Ordere d By: Hudson De Leon on 02-19-2023 pH (U) 5.5 [pH] 5.0-9.0 [facility] Alanine aminotransferase [En zymatic activity/volume] in Serum or PlasmaOrdered By: Hudson De Leon on 10-15-2022 ALT [Catalytic activity/Vol] 19 U/L 7-52 [facility] Albumin [Mass/volume] in Ser um or Plasma by Bromocresol green (BCG) dye binding methoOrdered By: Hudson De Leon on 10-15-2022 Albumin BCG dye [Mass/Vol] 4.1 g/dL 3.5-5.7 [facility] Alkaline phosphatase [Enzyma tic activity/volume] in Serum or PlasmaOrdered By: Hudson De Leon on 10-15-2022 ALP [Catalytic activity/Vol] 89 U/L 34-104 [facility] Aspartate aminotransferase [ Enzymatic activity/volume] in Serum or PlasmaOrdered By: Hudson De Leon on 10-15-2022 AST [Catalytic activity/Vol] 19 U/L 13-39 [facility] Automated erythrocytes count in urine sediment (number/area)Ordered By: Hudson De Leon on 10-15-2022 RBC Auto (Urine sed) [#/Area] 1-2 [HPF] 0-4 [facility] Automated leukocytes count i n urine sediment (number/area)Ordered By: Hudson De Leon on 10-15-2022 WBC Auto (Urine sed) [#/Area] None seen [HPF] 0-4 [facility] Basophils Auto (Bld) [#/Vol] Ordered By: Hudson De Leon on 10-15-2022 Basophils (Bld) [#/Vol] 0.0 10*3/uL 0.0-0.2 [facility] Basophils/100 WBC Auto (Bld) Ordered By: Hudson De Leon on 10-15-2022 Basophils/100 WBC (Bld) 0.5 % . [facility] Bilirubin Test strip Ql (U)O rdered By: Hudson De Leon on 10-15-2022 Bilirubin Ql (U) Negative Negative [facility] Bilirubin.total [Mass/volume ] in Serum or PlasmaOrdered By: Hudson De Leon on 10-15-2022 Bilirubin [Mass/Vol] 0.6 mg/dL 0.3-1.0 [facility] Calcium [Mass/volume] in Ser um or PlasmaOrdered By: Hudson De Leon on 10-15-2022 Calcium [Mass/Vol] 8.5 mg/dL 8.6-10.3 [facility] Carbon dioxide, total [Moles /volume] in Serum or PlasmaOrdered By: Hudson De Leon on 10-15-2022 CO2 [Moles/Vol] 27.8 mmol/L 21.0-31.0 [facility] Chloride [Moles/volume] in S lenny or PlasmaOrdered By: Hudson De Leon on 10-15-2022 Chloride [Moles/Vol] 106 mmol/L 98-107 [facility] Color Auto (U)Ordered By: Jessica ttdwain Haley on 10-15-2022 Color (U) Yellow Yellow [facility] Creatinine [Mass/volume] in Serum or PlasmaOrdered By: Hudson De Leon on 10-15-2022 Creatinine [Mass/Vol] 1.09 mg/dL 0.70-1.30 [facility] Eosinophils Auto (Bld) [#/Vo l]Ordered By: Hudson De Leon on 10-15-2022 Eosinophils (Bld) [#/Vol] 0.1 10*3/uL 0.0-0.45 [facility] Eosinophils/100 WBC Auto (Bl d)Ordered By: Hudson De Leon on 10-15-2022 Eosinophils/100 WBC (Bld) 1.6 % . [facility] Erythrocyte distribution wid th Auto (RBC) [Ratio]Ordered By: Hudson De Leon on 10-15-2022 Erythrocyte distribution width (RBC) [Ratio] 14.2 % 12.0-14.8 [facility] Erythrocyte sedimentation ra te by Photometric methodOrdered By: Hudson De Leon on 10-15-2022 ESR Photometric method (Bld) [Velocity] 6 mm/hr 0-19 [facility] Globulin Calc (S) [Mass/Vol] Ordered By: Hudson De Leon on 10-15-2022 Globulin (S) [Mass/Vol] 2.8 g/dL [facility] Glucose [Mass/volume] in Ser um or PlasmaOrdered By: Hudson De Leon on 10-15-2022 Glucose [Mass/Vol] 139 mg/dL 70-100 [facility] Comment on above: ADA recommended refe rence rangeRandom Glucose Reference Range is dependent on time and content of last meal. Glucose of more than 200 mg/dL in a nonstressed, ambulatory subject supports the diagnosis of Diabetes Mellitus. Hematocrit Auto (Bld) [Volum e fraction]Ordered By: Hudson De Leon on 10-15-2022 Hematocrit (Bld) [Volume fraction] 42.6 % 38.8-50.0 [facility] Hemoglobin [Mass/volume] in BloodOrdered By: Hudson De Leon on 10-15-2022 Hemoglobin (Bld) [Mass/Vol] 14.4 g/dL 13.0-17.0 [facility] Ketones Auto test strip (U) [Mass/Vol]Ordered By: Hudson De Leon on 10-15-2022 Ketones (U) [Mass/Vol] Negative Negative [facility] Laboratory - UrinalysisOrder ed By: Hudson De Leon on 10-15-2022 Hyaline casts LM Ql (Urine sed) None seen [LPF] 0-8 [facility] Leukocytes [#/volume] correc leah for nucleated erythrocytes in Blood by Automated counOrdered By: Hudson De Leon on 10-15-2022 WBC corrected for nucl RBC Auto (Bld) [#/Vol] 4.9 10*3/uL 4.1-10.5 [facility] Lymphocytes Auto (Bld) [#/Vo l]Ordered By: Hudson De Leon on 10-15-2022 Lymphocytes (Bld) [#/Vol] 1.0 10*3/uL 1.00-4.8 [facility] Lymphocytes/100 WBC Auto (Bl d)Ordered By: Hudson De Leon on 10-15-2022 Lymphocytes/100 WBC (Bld) 20.0 % . [facility] MCH Auto (RBC) [Entitic mass ]Ordered By: Hudson De Leon on 10-15-2022 MCH (RBC) [Entitic mass] 31.2 pg 27.5-35.2 [facility] MCHC Auto (RBC) [Mass/Vol]Or dered By: Hudson De Leon on 10-15-2022 MCHC (RBC) [Mass/Vol] 33.7 g/dL 32.5-35.6 [facility] MCV Auto (RBC) [Entitic vol] Ordered By: Hudson De Leon on 10-15-2022 MCV (RBC) [Entitic vol] 92.8 fL 83.5-101 [facility] Monocytes Auto (Bld) [#/Vol] Ordered By: Hudson De Leon on 10-15-2022 Monocytes (Bld) [#/Vol] 0.4 10*3/uL 0.0-0.8 [facility] Monocytes/100 WBC Auto (Bld) Ordered By: Hudson De Leon on 10-15-2022 Monocytes/100 WBC (Bld) 8.6 % . [facility] Neutrophils Auto (Bld) [#/Vo l]Ordered By: Hudson De Leon on 10-15-2022 Neutrophils (Bld) [#/Vol] 3.4 10*3/uL 1.8-7.7 [facility] Neutrophils/100 WBC Auto (Bl d)Ordered By: Hudson De Leon on 10-15-2022 Neutrophils/100 WBC (Bld) 69.3 % . [facility] Nitrite Test strip Ql (U)Ord ered By: Hudson De Leon on 10-15-2022 Nitrite Ql (U) Negative Negative [facility] No Panel InformationOrdered By: Hudson De Leon on 10-15-2022 Estimated GFR (CKD-EPI) > 60.0 mL/Min [facility] Creatinine Clearance (Chem N/A [facility] Nucleated erythrocytes [Pres ence] in Blood by Automated countOrdered By: Hudson De Leon on 10-15-2022 Nucleated RBC Auto Ql (Bld) 0.1 /100{WBC} 0-0.5 [facility] Platelet mean volume Auto (B ld) [Entitic vol]Ordered By: Hudson De Leon on 10-15-2022 Platelet mean volume (Bld) [Entitic vol] 9.1 fL 6.6-10.1 [facility] Platelets Auto (Bld) [#/Vol] Ordered By: Hudson De Leon on 10-15-2022 Platelets (Bld) [#/Vol] 196 10*3/uL 150-450 [facility] Potassium [Moles/volume] in Serum or PlasmaOrdered By: Hudson De Leon on 10-15-2022 Potassium [Moles/Vol] 4.4 mmol/L 3.5-5.1 [facility] Protein Auto test strip (U) [Mass/Vol]Ordered By: Hudson De Leon on 10-15-2022 Protein (U) [Mass/Vol] Negative Negative [facility] Protein [Mass/volume] in Ser um or PlasmaOrdered By: Hudson De Leon on 10-15-2022 Protein [Mass/Vol] 6.9 g/dL 6.4-8.9 [facility] RBC Auto (Bld) [#/Vol]Ordere d By: Hudson De Leon on 10-15-2022 RBC (Bld) [#/Vol] 4.60 10*6/uL 3.90-5.60 [facility] Serum or plasma albumin/glob ulin mass ratioOrdered By: Hudson De Leon on 10-15-2022 Albumin/Globulin [Mass ratio] 1.5 {ratio} [facility] Serum or plasma anion gap de terminationOrdered By: Hudson D eLeon on 10-15-2022 Anion gap [Moles/Vol] 9.6 mmol/L 6.0-15.0 [facility] Sodium [Moles/volume] in Ser um or PlasmaOrdered By: Hudson De Leon on 10-15-2022 Sodium [Moles/Vol] 139 mmol/L 136-145 [facility] Specific gravity Auto test s trip (U) [Rel density]Ordered By: Hudson De Leon on 10-15-2022 Specific gravity (U) [Rel density] 1.022 1.001-1.03 0 [facility] Squamous epithelial cells de tection in urine sediment by light microscopyOrdered By: Hudson De Leon on 10-15-2022 Epithelial cells.squamous LM Ql (Urine sed) None seen [HPF] 0-2 [facility] Urea nitrogen [Mass/volume] in Serum or PlasmaOrdered By: Hudson De Leon on 10-15-2022 Urea nitrogen [Mass/Vol] 24 mg/dL 7-25 [facility] Urine bacteria detection by automated methodOrdered By: Hudson De Leon on 10-15-2022 Bacteria Auto Ql (U) None seen None Seen [facility] Urine clarity by refractomet ry automatedOrdered By: Hudson De Leon on 10-15-2022 Clarity Refractometry automated (U) Clear Clear [facility] Urine glucose measurement by automated test strip (mass/volume)Ordered By: Hudson De Leon on 10-15-2022 Glucose Auto test strip (U) [Mass/Vol] Normal mg/dL Normal [facility] Urine hemoglobin detection b y automated test stripOrdered By: Hudson De Leon on 10-15-2022 Hemoglobin Auto test strip Ql (U) Negative Negative [facility] Urine leukocyte esterase det ection by automated test stripOrdered By: Hudson De Leon on 10-15-2022 Leukocyte esterase Auto test strip Ql (U) Negative Negative [facility] Urobilinogen Auto test strip (U) [Mass/Vol]Ordered By: Hudson De Leon on 10-15-2022 Urobilinogen (U) [Mass/Vol] Normal mg/dL Normal [facility] WBC Auto (Bld) [#/Vol]Ordere d By: Hudson De Leon on 10-15-2022 WBC (Bld) [#/Vol] 4.9 10*3/uL 4.1-10.5 [facility] pH Auto test strip (U)Ordere d By: Hudson De Leon on 10-15-2022 pH (U) 5.5 [pH] 5.0-9.0 [facility] Covid-19 PCR (CVDTB)on 08-23 SARS-CoV-2 (COVID-19) RNA LU+probe Ql (Unsp spec) Not detected Normal NOT DETECTED [facility] Comment on above: Result Comment: This test is not yet approved or cleared by the [place] FDA. When there are no FDA-approved or cleared tests available, and other criteria are met, FDA can make tests available under an emergency access mechanism called an Emergency Use Authorization (EUA). The EUA for this test is supported by the [place] of Health and Human Service's (HHS's) declaration [...] SARS-CoV-2. Performed By: #### I NSULIN #### [facility] [address], [place] [address] Dr. Carolyn King SYMPTOMATIC COVID-19 ANTIGEN on 09-11-2022 EUA Statement SEE BELOW Normal [facility] Comment on above: Result Comment: This [...] sooner. Performed By: #### C VDAGS #### [facility] [address] [place], [place] [id number] Dr. Carolyn King SARS-CoV-2 (COVID-19) RNA LU+probe Ql (Unsp spec) Negative Normal NEGATIVE [facility] Comment on above: Performed By: #### C VDAGS #### [facility] [address] [place], [place] [id number] Dr. Carolyn King CT FOOT RT WO [...] by: LAURY ZEPEDA Date: 2022-08-31 08:09 Normal [facility] US SINGLE QUAD RT UPPERon [...] by: LAURY ZEPEDA Date: 2022-08-31 07:41 Normal [facility] POINT OF CARE GLUCOSEon 05-24 Glucose [Mass/Vol] 125 mg/dL Critically high 74-106 [facility] Comment on above: Performed By: #### I NSULIN #### [facility] [address] [address] [address] Carolyn King Glucose [Mass/Vol] 105 mg/dL Normal 74-106 [facility] Comment on above: Performed By: #### I NSULIN #### [facility] [address] [address] [address] Carolyn King XR FOOT RT 2Von [...] BANDAR SAENZ Date: 2022-06-07 14:29 Normal [facility] Covid-19 PCR (CVDTBH)on 05-24 SARS-CoV-2 (COVID-19) RNA LU+probe Ql (Unsp spec) Not detected Normal NOT DETECTED [facility] Comment on above: Result Comment: This test is not yet approved or cleared by the [place] FDA. When there are no FDA-approved or cleared tests available, and other criteria are met, FDA can make tests available under an emergency access mechanism called an Emergency Use Authorization (EUA). The EUA for this test is supported by the [place] of Health and Human Service's (HHS's) declaration [...] SARS-CoV-2. Performed By: #### I NSULIN #### [facility] [address] [place] [address] Dr. Carolyn King Albumin [Mass/volume] in Ser um or PlasmaOrdered By: Hudson De Leon on 05-23-2022 Albumin [Mass/Vol] 3.9 g/dL 3.2-5.5 [facility] Automated erythrocytes count in urine sediment (number/area)Ordered By: Hudson De Leon on 05-23-2022 RBC Auto (Urine sed) [#/Area] None seen [HPF] 0-4 [facility] Automated leukocytes count i n urine sediment (number/area)Ordered By: Hudson De Leon on 05-23-2022 WBC Auto (Urine sed) [#/Area] None seen [HPF] 0-4 [facility] Basophils Auto (Bld) [#/Vol] Ordered By: Hudson De Leon on 05-23-2022 Basophils (Bld) [#/Vol] 0.0 10*3/uL 0.0-0.2 [facility] Basophils/100 WBC Auto (Bld) Ordered By: Hudson De Leon on 05-23-2022 Basophils/100 WBC (Bld) 0.6 % . [facility] Bilirubin Test strip Ql (U)O rdered By: Hudson De Leon on 05-23-2022 Bilirubin Ql (U) Negative Negative [facility] Color Auto (U)Ordered By: Jessica De Leon on 05-23-2022 Color (U) Yellow Yellow [facility] Creatinine and Glomerular fi ltration rate.predicted panel (S/P/Bld)Ordered By: Hudson De Leon on 05-23-2022 Creatinine [Mass/Vol] 0.92 mg/dL 0.64-1.27 [facility] Eosinophils Auto (Bld) [#/Vo l]Ordered By: Hudson De Leon on 05-23-2022 Eosinophils (Bld) [#/Vol] 0.0 10*3/uL 0.0-0.45 [facility] Eosinophils/100 WBC Auto (Bl d)Ordered By: Hudson De Leon on 05-23-2022 Eosinophils/100 WBC (Bld) 0.9 % . [facility] Erythrocyte distribution wid th Auto (RBC) [Ratio]Ordered By: Hudson De Leon on 05-23-2022 Erythrocyte distribution width (RBC) [Ratio] 13.4 % 12.0-14.8 [facility] Erythrocyte sedimentation ra te by Photometric methodOrdered By: Hudson De Leon on 05-23-2022 ESR Photometric method (Bld) [Velocity] 6 mm/hr 0-19 [facility] Estimated glomerular filtrat ion rate (GFR) non- AmericanOrdered By: Hudson De Leon on 05-23-2022 GFR/1.73 sq M.predicted among non-blacks MDRD (S/P/Bld) [Vol rate/Area] > 60 mL/Min [facility] Globulin Calc (S) [Mass/Vol] Ordered By: Hudson De Leon on 05-23-2022 Globulin (S) [Mass/Vol] 2.8 g/dL [facility] Hematocrit Auto (Bld) [Volum e fraction]Ordered By: Hudson De Leon on 05-23-2022 Hematocrit (Bld) [Volume fraction] 44.5 % 38.8-50.0 [facility] Hemoglobin [Mass/volume] in BloodOrdered By: Hudson De Leon on 05-23-2022 Hemoglobin (Bld) [Mass/Vol] 14.9 g/dL 13.0-17.0 [facility] Ketones Auto test strip (U) [Mass/Vol]Ordered By: Hudson De Leon on 05-23-2022 Ketones (U) [Mass/Vol] Negative Negative [facility] - UrinalysisOrder ed By: Hudson De Leon on 05-23-2022 Hyaline casts LM Ql (Urine sed) None seen [LPF] 0-8 [facility] Leukocytes [#/volume] correc leah for nucleated erythrocytes in Blood by Automated counOrdered By: Hudson De Leon on 05-23-2022 WBC corrected for nucl RBC Auto (Bld) [#/Vol] 5.2 10*3/uL 4.1-10.5 [facility] Lymphocytes Auto (Bld) [#/Vo l]Ordered By: Hudson De Leon on 05-23-2022 Lymphocytes (Bld) [#/Vol] 1.1 10*3/uL 1.00-4.8 [facility] Lymphocytes/100 WBC Auto (Bl d)Ordered By: Hudson De Leon on 05-23-2022 Lymphocytes/100 WBC (Bld) 21.1 % . [facility] MCH Auto (RBC) [Entitic mass ]Ordered By: Hudson De Leon on 05-23-2022 MCH (RBC) [Entitic mass] 31.2 pg 27.5-35.2 [facility] MCHC Auto (RBC) [Mass/Vol]Or dered By: Hudson De Leon on 05-23-2022 MCHC (RBC) [Mass/Vol] 33.5 g/dL 32.5-35.6 [facility] MCV Auto (RBC) [Entitic vol] Ordered By: Hudson De Leon on 05-23-2022 MCV (RBC) [Entitic vol] 93.3 fL 83.5-101 [facility] Monocytes Auto (Bld) [#/Vol] Ordered By: Hudson De Leon on 05-23-2022 Monocytes (Bld) [#/Vol] 0.5 10*3/uL 0.0-0.8 [facility] Monocytes/100 WBC Auto (Bld) Ordered By: Hudson De Leon on 05-23-2022 Monocytes/100 WBC (Bld) 10.3 % . [facility] Neutrophils Auto (Bld) [#/Vo l]Ordered By: Hudson De Leon on 05-23-2022 Neutrophils (Bld) [#/Vol] 3.5 10*3/uL 1.8-7.7 [facility] Neutrophils/100 WBC Auto (Bl d)Ordered By: Hudson De Leon on 05-23-2022 Neutrophils/100 WBC (Bld) 67.1 % . [facility] Nitrite Test strip Ql (U)Ord ered By: Hudson De Leon on 05-23-2022 Nitrite Ql (U) Negative Negative [facility] No Panel InformationOrdered By: Hudson De Leon on 05-23-2022 Estimated GFR () > 60 mL/Min [facility] Comment on above: GFR estimated refere nce range: According to KDOQI guidelines, <60 ml/min/1.73m2 is sufficient to diagnose a patient with chronic kidney disease. Pharmacy Creatinine Clearance (Chem N/A [facility] Nucleated erythrocytes [Pres ence] in Blood by Automated countOrdered By: Hudson De Leon on 05-23-2022 Nucleated RBC Auto Ql (Bld) 0.2 /100{WBC} 0-0.5 [facility] Platelet mean volume Auto (B ld) [Entitic vol]Ordered By: Hudson De Leon on 05-23-2022 Platelet mean volume (Bld) [Entitic vol] 9.4 fL 6.6-10.1 [facility] Platelets Auto (Bld) [#/Vol] Ordered By: Hudson De Leon on 05-23-2022 Platelets (Bld) [#/Vol] 234 10*3/uL 150-450 [facility] Protein Auto test strip (U) [Mass/Vol]Ordered By: Hudson De Leon on 05-23-2022 Protein (U) [Mass/Vol] Negative Negative [facility] Protein [Mass/volume] in Ser um or PlasmaOrdered By: Hudson De Leon on 05-23-2022 Protein [Mass/Vol] 6.7 g/dL 6.1-7.9 [facility] RBC Auto (Bld) [#/Vol]Ordere d By: Hudson De Leon on 05-23-2022 RBC (Bld) [#/Vol] 4.77 10*6/uL 3.90-5.60 [facility] Serum or plasma alanine gates otransferase measurement without P-5'-P (enzymatic activiOrdered By: Hudson De Leon on 05-23-2022 ALT No additional P-5'-P [Catalytic activity/Vol] 27 U/L [facility] Serum or plasma albumin/glob ulin mass ratioOrdered By: Hudson De Leon on 05-23-2022 Albumin/Globulin [Mass ratio] 1.4 {ratio} [facility] Serum or plasma alkaline amanda sphatase measurement (enzymatic activity/volume)Ordered By: Hudson De Leon on 05-23-2022 ALP [Catalytic activity/Vol] 90 U/L 32-92 [facility] Serum or plasma anion gap de terminationOrdered By: Hudson De Leon on 05-23-2022 Anion gap [Moles/Vol] 12.3 mmol/L 6.0-15.0 [facility] Serum or plasma aspartate am inotransferase measurement (enzymatic activity/volume)Ordered By: Hudson De Leon on 05-23-2022 AST [Catalytic activity/Vol] 31 U/L [facility] Serum or plasma calcium karl urement (mass/volume)Ordered By: Hudson De Leon on 05-23-2022 Calcium [Mass/Vol] 9.1 mg/dL 8.2-10.2 [facility] Serum or plasma chloride reba surement (moles/volume)Ordered By: Hudson De Leon on 05-23-2022 Chloride [Moles/Vol] 102 mmol/L 95-114 [facility] Serum or plasma glucose karl urement (mass/volume)Ordered By: Hudson De Leon on 05-23-2022 Glucose [Mass/Vol] 75 mg/dL 70-100 [facility] Comment on above: ADA recommended refe rence rangeRandom Glucose Reference Range is dependent on time and content of last meal. Glucose of more than 200 mg/dL in a nonstressed, ambulatory subject supports the diagnosis of Diabetes Mellitus. Serum or plasma potassium me asurement (moles/volume)Ordered By: Hudson De Leon on 05-23-2022 Potassium [Moles/Vol] 4.0 mmol/L 3.5-5.1 [facility] Serum or plasma sodium measu rement (moles/volume)Ordered By: Hudson De Leon on 05-23-2022 Sodium [Moles/Vol] 137 mmol/L 136-146 [facility] Serum or plasma total biliru bin measurement (mass/volume)Ordered By: Hudson De Leon on 05-23-2022 Bilirubin [Mass/Vol] 0.6 mg/dL 0.3-1.2 [facility] Serum or plasma total carbon dioxide measurement (moles/volume)Ordered By: Hudson De Leon on 05-23-2022 CO2 [Moles/Vol] 26.7 mmol/L 22.0-30.0 [facility] Serum or plasma urea nitroge n measurement (mass/volume)Ordered By: Hudson De Leon on 05-23-2022 Urea nitrogen [Mass/Vol] 11 mg/dL 9-23 [facility] Specific gravity Auto test s trip (U) [Rel density]Ordered By: Hudson De Leon on 05-23-2022 Specific gravity (U) [Rel density] 1.014 1.001-1.03 0 [facility] Squamous epithelial cells de tection in urine sediment by light microscopyOrdered By: Hudson De Leon on 05-23-2022 Epithelial cells.squamous LM Ql (Urine sed) None seen [HPF] 0-2 [facility] Urine bacteria detection by automated methodOrdered By: Hudson De Leon on 05-23-2022 Bacteria Auto Ql (U) None seen None Seen [facility] Urine clarity by refractomet ry automatedOrdered By: Hudson De Leon on 05-23-2022 Clarity Refractometry automated (U) Clear Clear [facility] Urine glucose measurement by automated test strip (mass/volume)Ordered By: Hudson De Leon on 05-23-2022 Glucose Auto test strip (U) [Mass/Vol] Normal mg/dL Normal [facility] Urine hemoglobin detection b y automated test stripOrdered By: Hudson De Leon on 05-23-2022 Hemoglobin Auto test strip Ql (U) Negative Negative [facility] Urine leukocyte esterase det ection by automated test stripOrdered By: Hudson De Leon on 05-23-2022 Leukocyte esterase Auto test strip Ql (U) Negative Negative [facility] Urobilinogen Auto test strip (U) [Mass/Vol]Ordered By: Hudson De Leon on 05-23-2022 Urobilinogen (U) [Mass/Vol] Normal mg/dL Normal [facility] WBC Auto (Bld) [#/Vol]Ordere d By: Hudson De Leon on 05-23-2022 WBC (Bld) [#/Vol] 5.2 10*3/uL 4.1-10.5 [facility] pH Auto test strip (U)Ordere d By: Hudson De Leon on 05-23-2022 pH (U) 5.5 [pH] 5.0-9.0 [facility] BN SPINE, CERVICAL, 2 OR 3 V IEWSon 05-02-2022 BN SPINE, CERVICAL, 2 OR 3 VIEWS Patient Name: JAY CARR STUDY: SPINE, CERVICAL, 2 OR 3 VIEWS; 05/02/2022 9:46 am INDICATION: cervical post op 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 COMPARISON: 08/03/2021 ACCESSION NUMBER(S): [id number] ORDERING CLINICIAN: KENTON LAWSON FINDINGS: Two views of the cervical spine. Patient is status post anterior cervical discectomy and fusion from C5-C7. No hardware complication. No acute fracture. No focal subluxation. Mild multilevel degenerative changes. IMPRESSION: Postsurgical changes status post ACDF from C5-C7. No hardware complication. Mild multilevel spondylosis. Electronically signed by: FRANCISCO FOLEY MD [facility] BN SPINE, LUMBOSACRAL; 2 OR 3 VIEWSon 05-02-2022 BN SPINE, LUMBOSACRAL; 2 OR 3 VIEWS Patient Name: JAY CARR STUDY: SPINE, LUMBOSACRAL; 2 OR 3 VIEWS; 05/02/2022 9:46 am INDICATION: AP/LAT M54.50: Lumbar back pain M48.062: Lumbar stenosis with neurogenic claudication. COMPARISON: 01/29/2022 ACCESSION NUMBER(S): [id number] ORDERING CLINICIAN: KENTON LAWSON FINDINGS: Two views [...] Electronically signed by: FRANCISCO FOLEY MD [facility] Established Visit (Orthopaed ic Surgery)on 05-02-2022 [...] Present Illness Jay is a pleasant 62-year-old afota-wuxa-xmvrcqhj male who presents today with his for [...] by phys (more content not included)... [facility] Rad[facility] 05-02-2022 XR Cervical spine 3 Views Normal [facility] DO Work Phone: XR Lumbar spine AP and Lateral Normal [facility] DO Work Phone: INSULINon 03-29-2022 Insulin 14.5 uIU/mL Normal 2.6-24.9 [facility] Comment on above: Performed By: #### I NSULIN #### [facility] [address] [address] [address] Carolyn King CBC AUTO DIFFon 03-28-2022 BASO # 0.0 103/ul Normal 0.0-0.1 [facility] Comment on above: Performed By: #### C BC #### [facility] [address] [place] [address] Dr. Carolyn King Basophils/100 WBC (Bld) 0.6 % Normal 0.2-2.0 [facility] Comment on above: Performed By: #### C BC #### [facility] [address] [place] [address] Dr. Carolyn King EO # 0.1 103/ul Normal 0.0-0.7 [facility] Comment on above: Performed By: #### C BC #### [facility] [address] [place] [address] Dr. Carolyn King Eosinophils/100 WBC (Bld) 1.6 % Normal 0.9-7.0 [facility] Comment on above: Performed By: #### C BC #### [facility] [address] [place] [address] Dr. Carolyn King Erythrocyte distribution width (RBC) [Ratio] 13.2 % Normal 11.0-15.0 [facility] Comment on above: Performed By: #### C BC #### [facility] [address] [place] [address] Dr. Carolyn King Hematocrit (Bld) [Volume fraction] 44.5 % Normal 42.0-54.0 [facility] Comment on above: Performed By: #### C BC #### [facility] [address] [place] [address] Dr. Carolyn King Hemoglobin (Bld) [Mass/Vol] 15.0 g/dL Normal 14.0-18.0 [facility] Comment on above: Performed By: #### C BC #### [facility] [address] [place] [address] Dr. Carolyn King IG # 0.01 10e3/ul Normal 0.00-0.03 [facility] Comment on above: Performed By: #### C BC #### [facility] [address] [place] [address] Dr. Carolyn King IG % 0.2 % Normal 0.0-0.5 [facility] Comment on above: Performed By: #### C BC #### [facility] [address] [address] [address] Carolyn King LYMPH # 1.0 103/ul Critically low 1.2-3.8 [facility] Comment on above: Performed By: #### C BC #### [facility] [address] [address] [address] Carolyn King Lymphocytes/100 WBC (Bld) 15.8 % Critically low 20.5-60.0 [facility] Comment on above: Performed By: #### C BC #### [facility] [address] [place] [address] Dr. Carolyn King MANUAL DIFF REQ NO Normal [facility] Comment on above: Performed By: #### C BC #### [facility] [address] [place] [address] Dr. Carolyn King MCH (RBC) [Entitic mass] 31.1 pg Normal 25.9-34.0 [facility] Comment on above: Performed By: #### C BC #### [facility] [address] [place] [address] Dr. Carolyn King MCHC (RBC) [Mass/Vol] 33.7 g/dL Normal 29.9-35.2 [facility] Comment on above: Performed By: #### C BC #### [facility] [address] [place] [address] Dr. Carolyn King MCV (RBC) [Entitic vol] 92.3 fL Normal 80.0-94.0 [facility] Comment on above: Performed By: #### C BC #### [facility] [address] [place] [address] Dr. Carolyn King MONO # 0.7 103/ul Normal 0.3-0.8 [facility] Comment on above: Performed By: #### C BC #### [facility] [address] [place] [address] Dr. Carolyn King Monocytes/100 WBC (Bld) 10.7 % Normal 1.7-12.0 [facility] Comment on above: Performed By: #### C BC #### [facility] [address] [address] [address] Carolyn King NEUT # 4.4 103/ul Normal 1.4-6.5 [facility] Comment on above: Performed By: #### C BC #### [facility] [address] [address] [address] Carolyn King Neutrophils/100 WBC (Bld) 71.1 % Normal 43.0-75.0 [facility] Comment on above: Performed By: #### C BC #### [facility] [address] [place] [address] Dr. Carolyn King Platelet mean volume (Bld) [Entitic vol] 10.2 fL Normal 9.5-13.5 [facility] Comment on above: Performed By: #### C BC #### [facility] [address] [place] [address] Dr. Carolyn King PLT 242 103/ul Normal 150-450 [facility] Comment on above: Performed By: #### C BC #### [facility] [address] [place] [address] Dr. Carolyn King RBC 4.82 106/ul Normal 4.70-6.10 [facility] Comment on above: Performed By: #### C BC #### [facility] [address] [place] [address] Dr. Carolyn King WBC 6.2 103/ul Normal 4.0-11.0 [facility] Comment on above: Performed By: #### C BC #### [facility] [address] [place] [address] Dr. Carolyn King FREE THYROXINE INDEX T7on FTI 2.55 Normal 1.30-4.50 [facility] Comment on above: Performed By: #### U ALLEN, TSH, T7, LIPID, CMP #### [facility] [address] [place] [address] Dr. Carolyn King T3U 30.0 % Critically low 33.0-40.0 [facility] Comment on above: Performed By: #### U ALLEN, TSH, T7, LIPID, CMP #### [facility] [address] [address] [address] Carolyn King T4 [Mass/Vol] 8.50 ug/dL Normal 4.50-12.10 [facility] Comment on above: Performed By: #### U ALLEN, TSH, T7, LIPID, CMP #### [facility] [address] [address] [address] Carolyn King GLYCOHEMOGLOBIN A1Con 2021 ADA RECOMMENDATION SEE BELOW Normal [facility] Comment on above: Result Comment: ADA RECOMMENDED LIMIT 4.0 - 6.0 ADA THERAPEUTIC TARGET < 7.0 ACTION SUGGESTED > 7.0 Performed By: #### A 1C #### [facility] [address] [place] [address] Dr. Carolyn King Glucose [Mass/Vol] 103 mg/dL Normal 74-106 [facility] Comment on above: Performed By: #### A 1C #### [facility] [address] [place] [address] Dr. Carolyn King Performed By: #### U ALLEN, TSH, T7, LIPID, CMP #### [facility] [address] [place] [address] Dr. Carolyn King HbA1c (Bld) [Mass fraction] 5.2 % Normal 4.5-6.2 [facility] Comment on above: Performed By: #### A 1C #### [facility] [address] [place] [address] Dr. Carolyn King LIPID PROFILEon 03-28-2022 CHOL-HDL RATIO NORM SEE BELOW Normal [facility] Comment on above: Result Comment: 3.3 - 4.4 LOW RISK 4.4 - 7.1 AVERAGE RISK 7.1 - 11.0 MODERATE RISK >11.0 HIGH RISK Performed By: #### U ALLEN, TSH, T7, LIPID, CMP #### [facility] [address] [place] [address] Dr. Carolyn King Cholesterol [Mass/Vol] 157 mg/dL Normal <=200 [facility] Comment on above: Performed By: #### U ALLEN, TSH, T7, LIPID, CMP #### [facility] [address] [address] [address] Carolyn King Cholesterol in HDL [Mass/Vol] 49 mg/dL Normal 40-60 [facility] Comment on above: Performed By: #### U ALLEN, TSH, T7, LIPID, CMP #### [facility] [address] [address] [address] Carolyn King Cholesterol in LDL [Mass/Vol] 85.6 mg/dL Normal [facility] Comment on above: Performed By: #### U ALLEN, TSH, T7, LIPID, CMP #### [facility] [address] [address] [address] Carolyn King Cholesterol.total/Chol esterol in HDL [Mass ratio] 3.2 {ratio} Normal [facility] Comment on above: Performed By: #### U ALLEN, TSH, T7, LIPID, CMP #### [facility] [address] [address] [address] Carolyn King HDL NORMAL > or = 60 mg/dl - LO W CARDIOVASCULAR RISK <40 mg/dl - HIGH CARDIOVASCULAR RISK Normal [facility] Comment on above: Performed By: #### U ALLEN, TSH, T7, LIPID, CMP #### [facility] [address] [address] [address] Carolyn King LDL CALC NORMAL SEE BELOW Normal [facility] Comment on above: Result Comment: <100 mg/dl OPTIMAL 100 - 129 mg/dl NEAR OR ABOVE OPTIMAL 130 - 159 mg/dl BORDERLINE HIGH 160 - 189 mg/dl HIGH >190 mg/dl VERY HIGH Performed By: #### U ALLEN, TSH, T7, LIPID, CMP #### [facility] [address] [address] [address] Carolyn King Triglyceride [Mass/Vol] 112 mg/dL Normal <=150 [facility] Comment on above: Performed By: #### U ALLEN, TSH, T7, LIPID, CMP #### [facility] [address] [address] [address] Carolyn King VLDL CALC 22.4 mg/dL Normal [facility] Comment on above: Performed By: #### U ALLEN, TSH, T7, LIPID, CMP #### [facility] [address] [place] [address] Dr. Carolyn King PROF 14(COMP METB)on 022 Albumin [Mass/Vol] 3.9 g/dL Normal 3.4-5.0 [facility] Comment on above: Performed By: #### U ALLEN, TSH, T7, LIPID, CMP #### [facility] [address] [place] [address] Dr. Carolyn King Albumin/Globulin [Mass ratio] 1.1 {ratio} Normal [facility] Comment on above: Performed By: #### U ALLEN, TSH, T7, LIPID, CMP #### [facility] [address] [place] [address] Dr. Carolyn King ALP [Catalytic activity/Vol] 108 U/L Normal 46-116 [facility] Comment on above: Performed By: #### U ALLEN, TSH, T7, LIPID, CMP #### [facility] [address] [place] [address] Dr. Carolyn King ALT [Catalytic activity/Vol] 28 U/L Normal 16-63 [facility] Comment on above: Performed By: #### U ALLEN, TSH, T7, LIPID, CMP #### [facility] [address] [place] [address] Dr. Carolyn King Anion gap [Moles/Vol] 6.6 mmol/L Normal [facility] Comment on above: Performed By: #### U ALLEN, TSH, T7, LIPID, CMP #### [facility] [address] [place] [address] Dr. Carolyn King AST [Catalytic activity/Vol] 22 U/L Normal 15-37 [facility] Comment on above: Performed By: #### U ALLEN, TSH, T7, LIPID, CMP #### [facility] [address] [place] [address] Dr. Carolyn King Bilirubin [Mass/Vol] 0.6 mg/dL Normal 0.2-1.0 [facility] Comment on above: Performed By: #### U ALLEN, TSH, T7, LIPID, CMP #### [facility] [address] [address] [address] Carolyn King Calcium [Mass/Vol] 8.7 mg/dL Normal 8.5-10.1 [facility] Comment on above: Performed By: #### U ALLEN, TSH, T7, LIPID, CMP #### [facility] [address] [address] [address] Carolyn King Chloride [Moles/Vol] 105 mmol/L Normal 98-107 [facility] Comment on above: Performed By: #### U ALLEN, TSH, T7, LIPID, CMP #### [facility] [address] [address] [address] Carolyn King CO2 [Moles/Vol] 30.6 mmol/L Normal 21.0-32.0 [facility] Comment on above: Performed By: #### U ALLEN, TSH, T7, LIPID, CMP #### [facility] [address] [address] [address] Carolyn King Creatinine [Mass/Vol] 0.96 mg/dL Normal 0.70-1.30 [facility] Comment on above: Performed By: #### U ALLEN, TSH, T7, LIPID, CMP #### [facility] [address] [place] [address] Dr. Carolyn King EGFR-AF LEBANESE >60 Normal >=60 [facility] Comment on above: Performed By: #### U ALLEN, TSH, T7, LIPID, CMP #### [facility] [address] [address] [address] Carolyn King EGFR-NON AF LEBANESE >60 Normal >=60 [facility] Comment on above: Performed By: #### U ALLEN, TSH, T7, LIPID, CMP #### [facility] [address] [address] [address] Carolyn King Globulin (S) [Mass/Vol] 3.5 g/dL Normal [facility] Comment on above: Performed By: #### U ALLEN, TSH, T7, LIPID, CMP #### [facility] [address] [address] [address] Carolyn King Potassium [Moles/Vol] 4.2 mmol/L Normal 3.5-5.1 [facility] Comment on above: Performed By: #### U ALLEN, TSH, T7, LIPID, CMP #### [facility] [address] [place] [address] Dr. Carolyn King Protein [Mass/Vol] 7.4 g/dL Normal 6.4-8.2 [facility] Comment on above: Performed By: #### U ALLEN, TSH, T7, LIPID, CMP #### [facility] [address] [place] [address] Dr. Carolyn King Sodium [Moles/Vol] 138 mmol/L Normal 136-145 [facility] Comment on above: Performed By: #### U ALLEN, TSH, T7, LIPID, CMP #### [facility] [address] [place] [address] Dr. Carolyn King Urea nitrogen [Mass/Vol] 16.0 mg/dL Normal 7.0-18.0 [facility] Comment on above: Performed By: #### U ALLEN, TSH, T7, LIPID, CMP #### [facility] [address] [place] [address] Dr. Carolyn King Urea nitrogen/Creatinine [Mass ratio] 16.7 mg/mg Normal [facility] Comment on above: Performed By: #### U ALLEN, TSH, T7, LIPID, CMP #### [facility] [address] [place] [address] Dr. Carolyn King TSHon 03-28-2022 TSH 1.986 uIU/mL Normal 0.358-3.74 0 [facility] Comment on above: Performed By: #### U ALLEN, TSH, T7, LIPID, CMP #### [facility] [address] [place] [address] Dr. Carolyn King URIC ACID SERUMon 03-28-2022 Urate [Mass/Vol] 5.5 mg/dL Normal 3.5-7.2 [facility] Comment on above: Performed By: #### U ALLEN, TSH, T7, LIPID, CMP #### [facility] [address] [place] [address] Dr. Carolyn King Ammonium urate crystals dete ction in stone by infrared spectroscopyOrdered By: Shun Machado on 02-15-2022 Ammonium urate crystals Infrared spectroscopy Ql (Stone) N/A [facility] Basophils Auto (Bld) [#/Vol] Ordered By: Steve Pina on 02-15-2022 Basophils (Bld) [#/Vol] 0.0 10*3/uL 0.0-0.2 [facility] Basophils/100 WBC Auto (Bld) Ordered By: Steve Pina on 02-15-2022 Basophils/100 WBC (Bld) 0.9 % . [facility] Blood hemoglobin measurement (mass/volume)Ordered By: Steve Pina on 02-15-2022 Hemoglobin (Bld) [Mass/Vol] 14.2 g/dL 13.0-17.0 [facility] Blood leukocytes automated c ount (number/volume)Ordered By: Steve Pina on 02-15-2022 WBC (Bld) [#/Vol] 4.5 10*3/uL 4.5-11.0 [facility] Calcium bilirubinate measure mentOrdered By: Shun Machado on 02-15-2022 Calcium bilirubinate (Stone) [Mass fraction] N/A [facility] Calcium carbonate measuremen tOrdered By: Shun Machado on 02-15-2022 Calcium carbonate (Stone) [Mass fraction] N/A [facility] Calcium hydrogen phosphate d ihydrate/Total in StoneOrdered By: Shun Machado on 02-15-2022 Calcium hydrogen phosphate dihydrate (Stone) [Mass fraction] N/A [facility] Calcium oxalate dihydrate cr ystals detection in stone by infrared spectroscopyOrdered By: Shun Machado on 02-15-2022 Calcium oxalate dihydrate crystals Infrared spectroscopy Ql (Stone) 10 % . [facility] Calcium oxalate monohydrate/ Total in StoneOrdered By: Shun Machado on 02-15-2022 Calcium oxalate monohydrate (Stone) [Mass fraction] 90 % . [facility] Calcium phosphate measuremen tOrdered By: Shun Machado on 02-15-2022 Calcium phosphate (Stone) [Mass fraction] N/A [facility] Calculus analysis interpreta tion in stoneOrdered By: Shun Machado on 02-15-2022 Calculus analysis [Interp] N/A [facility] Calculus analysis [Interp] See comment . [facility] Comment on above: Physician questions regarding Calculi Analysis contact [facility] at: [phone]. Calculi report will follow via computer, mail or lab courier delivery. Calculus analysis with calcu iggy photography interpretation in stoneOrdered By: Shun Machado on 02-15-2022 Calculus analysis with calculus photography [Interp] See comment . [facility] Comment on above: Photograph will foll ow under a separate cover Cellular material measuremen t in stone by estimated (mass/mass)Ordered By: Shun Machado on 02-15-2022 Cellular material Est (Stone) [Mass/Mass] N/A [facility] Cholesterol/Total in StoneOr dered By: Shun Machado on 02-15-2022 Cholesterol (Stone) [Mass fraction] N/A [facility] Composition of stoneOrdered By: Shun Machado on 02-15-2022 Composition Nom (Stone) See comment . [facility] Comment on above: Percentage (Represen ts the % composition) Creatinine and Glomerular fi ltration rate.predicted panel (S/P/Bld)Ordered By: Steve Pina on 02-15-2022 Creatinine [Mass/Vol] 0.96 mg/dL 0.64-1.27 [facility] Cystine measurementOrdered B y: Shun Machado on 02-15-2022 Cystine (Unsp spec) [Moles/Vol] N/A [facility] Determination of color of ca lculusOrdered By: Shun Machado on 02-15-2022 Color (Stone) Brown . [facility] Eosinophils Auto (Bld) [#/Vo l]Ordered By: Steve Pina on 02-15-2022 Eosinophils (Bld) [#/Vol] 0.1 10*3/uL 0.0-0.45 [facility] Eosinophils/100 WBC Auto (Bl d)Ordered By: Steve Pina on 02-15-2022 Eosinophils/100 WBC (Bld) 2.7 % . [facility] Erythrocyte distribution wid th Auto (RBC) [Ratio]Ordered By: Steve Pina on 02-15-2022 Erythrocyte distribution width (RBC) [Ratio] 14.0 % 12.0-14.8 [facility] Estimated glomerular filtrat ion rate (GFR) non- AmericanOrdered By: Steve Pina on 02-15-2022 GFR/1.73 sq M.predicted among non-blacks MDRD (S/P/Bld) [Vol rate/Area] > 60 mL/Min [facility] Hematocrit Auto (Bld) [Volum e fraction]Ordered By: Steve Pina on 02-15-2022 Hematocrit (Bld) [Volume fraction] 42.2 % 38.8-50.0 [facility] Hydroxyapatite [Energy Diffe rence] in 24 hour UrineOrdered By: Shun Machado on 02-15-2022 Hydroxyapatite (24H U) [Energy diff] N/A [facility] Laboratory - Hematology and Cell countsOrdered By: Steve Pina on 02-15-2022 Nucleated RBC/100 WBC (Bld) [Ratio] 0.0 % 0-0.5 [facility] Lymphocytes Auto (Bld) [#/Vo l]Ordered By: Steve Pina on 02-15-2022 Lymphocytes (Bld) [#/Vol] 1.0 10*3/uL 1.00-4.8 [facility] Lymphocytes/100 WBC Auto (Bl d)Ordered By: Steve Pina on 02-15-2022 Lymphocytes/100 WBC (Bld) 21.3 % . [facility] MCH Auto (RBC) [Entitic mass ]Ordered By: Steve Pina on 02-15-2022 MCH (RBC) [Entitic mass] 31.0 pg 27.5-35.2 [facility] MCHC Auto (RBC) [Mass/Vol]Or dered By: Steve Pina on 02-15-2022 MCHC (RBC) [Mass/Vol] 33.7 g/dL 32.5-35.6 [facility] MCV Auto (RBC) [Entitic vol] Ordered By: Steve Pina on 02-15-2022 MCV (RBC) [Entitic vol] 92.1 fL 83.5-101 [facility] Measurement of proportion of calculus composed of dried blood (mass/mass)Ordered By: Shun Machado on 02-15-2022 Blood.dried (Stone) [Mass fraction] N/A [facility] Monocytes Auto (Bld) [#/Vol] Ordered By: Steve Pina on 02-15-2022 Monocytes (Bld) [#/Vol] 0.5 10*3/uL 0.0-0.8 [facility] Monocytes/100 WBC Auto (Bld) Ordered By: Steve Pina on 02-15-2022 Monocytes/100 WBC (Bld) 10.1 % . [facility] Neutrophils Auto (Bld) [#/Vo l]Ordered By: Steve Pina on 02-15-2022 Neutrophils (Bld) [#/Vol] 3.0 10*3/uL 1.8-7.7 [facility] Neutrophils/100 WBC Auto (Bl d)Ordered By: Steve Pina on 02-15-2022 Neutrophils/100 WBC (Bld) 65.0 % . [facility] Newberyite/Total in StoneOrd ered By: Shun Machado on 02-15-2022 Newberyite (Stone) [Mass fraction] N/A [facility] No Panel InformationOrdered By: Shun Machado on 02-15-2022 Stone 2,8 Dihydroxyadenine N/A [facility] Stone Analysis Disclaimer See comment . [facility] Comment on above: This test was develo ped and its performance characteristics determined by [facility]. It has not been cleared or approved by the Food and Drug Administration. Performed at: [facility] [address] [place] [address] [place], [place] [id number] Loan Supervisor: Riley Parikh PhD, Phone: [phone] [facility] Bilirubinate N/A [facility] [facility] Calcium Palmitate N/A [facility] Stone Calcium Stearate N/A [facility] Carbonate Apatite N/A [facility] Stone Drug or Metabolite N/A [facility] Stone Other Constituent N/A [facility] Stone Xanthine N/A [facility] No Panel InformationOrdered By: Steve Pina on 02-15-2022 Estimated GFR () > 60 mL/Min [facility] Comment on above: GFR estimated refere nce range: According to KDOQI guidelines, <60 ml/min/1.73m2 is sufficient to diagnose a patient with chronic kidney disease. Pharmacy Creatinine Clearance (Chem 93.62 [facility] Platelet mean volume Auto (B ld) [Entitic vol]Ordered By: Steve Pina on 02-15-2022 Platelet mean volume (Bld) [Entitic vol] 7.9 fL 6.6-10.1 [facility] Platelets Auto (Bld) [#/Vol] Ordered By: Steve Pina on 02-15-2022 Platelets (Bld) [#/Vol] 202 10*3/uL 150-450 [facility] RBC Auto (Bld) [#/Vol]Ordere d By: Steve Pina on 02-15-2022 RBC (Bld) [#/Vol] 4.58 10*6/uL 3.90-5.60 [facility] Serum or plasma calcium karl urement (mass/volume)Ordered By: Steve Pina on 02-15-2022 Calcium [Mass/Vol] 9.0 mg/dL 8.2-10.2 [facility] Serum or plasma chloride reba surement (moles/volume)Ordered By: Steve Pina on 02-15-2022 Chloride [Moles/Vol] 102 mmol/L 95-114 [facility] Serum or plasma glucose karl urement (mass/volume)Ordered By: Steve Pina on 02-15-2022 Glucose [Mass/Vol] 108 mg/dL 70-100 [facility] Comment on above: ADA recommended refe rence range Random Glucose Reference Range is dependent on time and content of last meal. Glucose of more than 200 mg/dL in a nonstressed, ambulatory subject supports the diagnosis of Diabetes Mellitus. Serum or plasma potassium me asurement (moles/volume)Ordered By: Steve Pina on 02-15-2022 Potassium [Moles/Vol] 3.9 mmol/L 3.5-5.1 [facility] Serum or plasma sodium measu rement (moles/volume)Ordered By: Steve Pina on 02-15-2022 Sodium [Moles/Vol] 137 mmol/L 136-146 [facility] Serum or plasma total carbon dioxide measurement (moles/volume)Ordered By: Steve Pina on 02-15-2022 CO2 [Moles/Vol] 28.0 mmol/L 22.0-30.0 [facility] Serum or plasma urea nitroge n measurement (mass/volume)Ordered By: Steve Pina on 02-15-2022 Urea nitrogen [Mass/Vol] 11 mg/dL 9- [facility] Size [Entitic volume] of Sto neOrdered By: Shun Machado on 02-15-2022 Size (Stone) [Entitic vol] 5x3 mm . [facility] Comment on above: Multiple pieces rece ived. Dimensions of the largest piece reported. Sodium urate crystals detect ion in stone by infrared spectroscopyOrdered By: Shun Machado on 02-15-2022 Sodium urate crystals Infrared spectroscopy Ql (Stone) N/A [facility] Specimen source subject [Typ e]Ordered By: Shun Machado on 02-15-2022 Specimen source subject Nom See comment . [facility] Comment on above: Right Ureter Triamterene measurement in c alculusOrdered By: Shun Machado on 02-15-2022 Triamterene (Stone) [Mass fraction] N/A [facility] Triple phosphate/Total in St oneOrdered By: Shun Machado on 02-15-2022 Triple phosphate (Stone) [Mass fraction] N/A [facility] Uric acid dihydrate crystals detection in stone by infrared spectroscopyOrdered By: Shun Machado on 02-15-2022 Urate dihydrate crystals Infrared spectroscopy Ql (Stone) N/A [facility] XR ANKLE RT MIN 3 VIEWSon XR [...] LAURY ZEPEDA Date: 2022-02-15 06:59 Normal [facility] COVID-19 Positive/NegativeOr dered By: Shun Machado on 02-13-2022 SARS-CoV-2 (COVID-19) N gene LU+probe Ql (Resp) Negative Negative [facility] Comment on above: Testing for SARS-CoV -2 by RT-PCR This test was developed and its performance characteristics determined by [employer] and validated at the [facility]. This test has not been FDA cleared [...] claudication. COMPARISON: November 08, 2021 ACCESSION NUMBER(S): [id number] ORDERING CLINICIAN: KENTON LAWSON FINDINGS: Status post anterior and posterior fusion L3-L5 unchanged prior examination with disc space replacement and posterior pedicle screws. Alignment normal. Upper lumbar degenerative changes greatest at L2-3 again noted. IMPRESSION: Satisfactory and unchanged appearance status post L3-L5 fusion. Electronically signed by: JENI SNYDER MD [facility] Established Visit (Orthopaed ic Surgery)on 01-29-2022 [...] Xray BN Spine, Lumbosacral; 2 or 3 [id number] 10:34AKenton fernández Test NameResultFlagReference Xray Lumbar Spine [...] BANDAR SAENZ Date: 2022-01-29 21:07 Normal [facility] Activated partial thrombopla stin time (aPTT) in platelet poor plasma by coagulation aOrdered By: Shun Machado on 01-17-2022 aPTT Coag (PPP) [Time] 36.3 s 25.1-36.5 [facility] COVID-19 Positive/NegativeOr dered By: Shun Machado on 01-17-2022 SARS-CoV-2 (COVID-19) N gene LU+probe Ql (Resp) Negative Negative [facility] Comment on above: Testing for SARS-CoV -2 by RT-PCR This test was developed and its performance characteristics determined by [employer] ([employer]) and validated at the [facility]. This test has not been FDA cleared [...] PT Coag (PPP) [Time] 11.9 s 9.0-12.9 [facility] Platelet poor plasma interna tional normalized ratio (INR) by coagulation assay (relatOrdered By: Shun Machado on 01-17-2022 INR Coag (PPP) [Relative time] 1.1 {INR} [facility] Comment on above: INR Therapeutic Rang e [...] BANDAR SAENZ Date: 2022-01-11 16:29 Normal [facility] CBC AUTO DIFFon 01-09-2022 BASO # 0.0 103/ul Normal 0.0-0.1 [facility] Comment on above: Performed By: #### C BC #### [facility] [address] [place] [address] Dr. Carolyn King Basophils/100 WBC (Bld) 0.4 % Normal 0.2-2.0 [facility] Comment on above: Performed By: #### C BC #### [facility] [address] [place] [address] Dr. Carolyn King EO # 0.0 103/ul Normal 0.0-0.7 [facility] Comment on above: Performed By: #### C BC #### [facility] [address] [place] [address] Dr. Carolyn King Eosinophils/100 WBC (Bld) 0.3 % Critically low 0.9-7.0 [facility] Comment on above: Performed By: #### C BC #### [facility] [address] [place] [address] Dr. Carolyn King Erythrocyte distribution width (RBC) [Ratio] 12.6 % Normal 11.0-15.0 [facility] Comment on above: Performed By: #### C BC #### [facility] [address] [place] [address] Dr. Carolyn King Hematocrit (Bld) [Volume fraction] 45.6 % Normal 42.0-54.0 [facility] Comment on above: Performed By: #### C BC #### [facility] [address] [place] [address] Dr. Carolyn Knig Hemoglobin (Bld) [Mass/Vol] 15.6 g/dL Normal 14.0-18.0 [facility] Comment on above: Performed By: #### C BC #### [facility] [address] [place] [address] Dr. Carolyn King IG # 0.02 10e3/ul Normal 0.00-0.03 [facility] Comment on above: Performed By: #### C BC #### [facility] [address] [place] [address] Dr. Carolyn King IG % 0.3 % Normal 0.0-0.5 [facility] Comment on above: Performed By: #### C BC #### [facility] [address] [address] [address] Carolyn King LYMPH # 0.8 103/ul Critically low 1.2-3.8 [facility] Comment on above: Performed By: #### C BC #### [facility] [address] [address] [address] Carolyn King Lymphocytes/100 WBC (Bld) 11.4 % Critically low 20.5-60.0 [facility] Comment on above: Performed By: #### C BC #### [facility] [address] [place] [address] Dr. Carolyn King MANUAL DIFF REQ NO Normal [facility] Comment on above: Performed By: #### C BC #### [facility] [address] [place] [address] Dr. Carolyn King MCH (RBC) [Entitic mass] 30.8 pg Normal 25.9-34.0 [facility] Comment on above: Performed By: #### C BC #### [facility] [address] [place] [address] Dr. Carolyn King MCHC (RBC) [Mass/Vol] 34.2 g/dL Normal 29.9-35.2 [facility] Comment on above: Performed By: #### C BC #### [facility] [address] [place] [address] Dr. Carolyn King MCV (RBC) [Entitic vol] 89.9 fL Normal 80.0-94.0 [facility] Comment on above: Performed By: #### C BC #### [facility] [address] [place] [address] Dr. Carolyn King MONO # 0.6 103/ul Normal 0.3-0.8 [facility] Comment on above: Performed By: #### C BC #### [facility] [address] [place] [address] Dr. Carolyn King Monocytes/100 WBC (Bld) 8.5 % Normal 1.7-12.0 [facility] Comment on above: Performed By: #### C BC #### [facility] [address] [address] [address] Carolyn King NEUT # 5.8 103/ul Normal 1.4-6.5 [facility] Comment on above: Performed By: #### C BC #### [facility] [address] [place] [address] Dr. Carolyn King Neutrophils/100 WBC (Bld) 79.1 % Critically high 43.0-75.0 [facility] Comment on above: Performed By: #### C BC #### [facility] [address] [place] [address] Dr. Carolyn King Platelet mean volume (Bld) [Entitic vol] 10.7 fL Normal 9.5-13.5 [facility] Comment on above: Performed By: #### C BC #### [facility] [address] [place] [address] Dr. Carolyn King PLT 235 103/ul Normal 150-450 [facility] Comment on above: Performed By: #### C BC #### [facility] [address] [place] [address] Dr. Carolyn King RBC 5.07 106/ul Normal 4.70-6.10 [facility] Comment on above: Performed By: #### C BC #### [facility] [address] [place] [address] Dr. Carolyn King WBC 7.4 103/ul Normal 4.0-11.0 [facility] Comment on above: Performed By: #### C BC #### [facility] [address] [place] [address] ABD/PELVIS WO CONon [...] LAURY ZEPEDA Date: 2022-01-09 13:38 Normal [facility] ER URINE PROFILEon 2 Bilirubin Ql (U) Negative Normal NEGATIVE [facility] Comment on above: Performed By: #### I NSULIN #### [facility] [address] [address] [address] Carolyn King Clarity (U) CLEAR Normal CLEAR [facility] Comment on above: Performed By: #### I NSULIN #### [facility] [address] [address] [address] Carolyn King Color (U) LT. YELLOW Normal YELLOW [facility] Comment on above: Performed By: #### I NSULIN #### [facility] [address] [address] [address] Carolyn King ERUAHD A micrscopic examina tion will be performed if indicated. Normal [facility] Comment on above: Performed By: #### I NSULIN #### [facility] [address] [address] [address] Carolyn King Glucose Ql (U) Negative Normal NEGATIVE [facility] Comment on above: Performed By: #### I NSULIN #### [facility] [address] [place] [address] Dr. Carolyn King Hemoglobin Ql (U) MODERATE Abnormal NEGATIVE [facility] Comment on above: Performed By: #### I NSULIN #### [facility] [address] [address] [address] Carolyn King Ketones Ql (U) Negative Normal NEGATIVE [facility] Comment on above: Performed By: #### I NSULIN #### [facility] [address] [place] [address] Dr. Carolyn King LEUKOCYTES Negative Normal NEGATIVE [facility] Comment on above: Performed By: #### I NSULIN #### [facility] [address] [place] [address] Dr. Carolyn King Nitrite Ql (U) Negative Normal NEGATIVE [facility] Comment on above: Performed By: #### I NSULIN #### [facility] [address] [place] [address] Dr. Carolyn King pH (U) 6.0 [pH] Normal 5-9 [facility] Comment on above: Performed By: #### I NSULIN #### [facility] [address] [place] [address] Dr. Carolyn King SPEC GRAVITY 1.010 Normal 1.005-<=1. 025 [facility] Comment on above: Performed By: #### I NSULIN #### [facility] [address] [address] [address] Carolyn King UA PROTEIN Negative Normal NEGATIVE/ TRACE [facility] Comment on above: Performed By: #### I NSULIN #### [facility] [address] [place] [address] Dr. Carolyn King UR MICRO IND INDICATED Normal [facility] Comment on above: Performed By: #### I NSULIN #### [facility] [address] [place] [address] Dr. Carolyn King Urobilinogen Qn (U) 0.2 {Keren'U}/dL Normal 0.2 - 1. 0 [facility] Comment on above: Performed By: #### I NSULIN #### [facility] [address] [place] [address] Dr. Carolyn King LIPASEon 01-09-2022 Lipase [Catalytic activity/Vol] 98.0 U/L Normal 73.0-393.0 [facility] Comment on above: Performed By: #### I NSULIN #### [facility] [address] [place] [address] Dr. Carolyn King PROF 14(COMP METB)on 022 Albumin [Mass/Vol] 4.0 g/dL Normal 3.4-5.0 [facility] Comment on above: Performed By: #### I NSULIN #### [facility] [address] [place] [address] Dr. Carolyn King Albumin/Globulin [Mass ratio] 1.1 {ratio} Normal [facility] Comment on above: Performed By: #### I NSULIN #### [facility] [address] [place] [address] Dr. Carolyn King ALP [Catalytic activity/Vol] 112 U/L Normal 46-116 [facility] Comment on above: Performed By: #### I NSULIN #### [facility] [address] [place] [address] Dr. Carolyn King ALT [Catalytic activity/Vol] 27 U/L Normal 16-63 [facility] Comment on above: Performed By: #### I NSULIN #### [facility] [address] [place] [address] Dr. Carolyn King Anion gap [Moles/Vol] 14.9 mmol/L Normal [facility] Comment on above: Performed By: #### I NSULIN #### [facility] [address] [place] [address] Dr. Carolyn King AST [Catalytic activity/Vol] 22 U/L Normal 15-37 [facility] Comment on above: Performed By: #### I NSULIN #### [facility] [address] [address] [address] Carolyn King Bilirubin [Mass/Vol] 0.5 mg/dL Normal 0.2-1.0 [facility] Comment on above: Performed By: #### I NSULIN #### [facility] [address] [address] [address] Carolyn King Calcium [Mass/Vol] 9.1 mg/dL Normal 8.5-10.1 [facility] Comment on above: Performed By: #### I NSULIN #### [facility] [address] [address] [address] Carolyn King Chloride [Moles/Vol] 103 mmol/L Normal 98-107 [facility] Comment on above: Performed By: #### I NSULIN #### [facility] [address] [place] [address] Dr. Carolyn King CO2 [Moles/Vol] 26.0 mmol/L Normal 21.0-32.0 [facility] Comment on above: Performed By: #### I NSULIN #### [facility] [address] [place] [address] Dr. Carolyn King Creatinine [Mass/Vol] 1.09 mg/dL Normal 0.70-1.30 [facility] Comment on above: Performed By: #### I NSULIN #### [facility] [address] [place] [address] Dr. Carolyn King EGFR-AF LEBANESE >60 Normal >=60 [facility] Comment on above: Performed By: #### I NSULIN #### [facility] [address] [address] [address] Carolyn King EGFR-NON AF LEBANESE >60 Normal >=60 [facility] Comment on above: Performed By: #### I NSULIN #### [facility] [address] [place] [address] Dr. Carolyn King Globulin (S) [Mass/Vol] 3.8 g/dL Normal [facility] Comment on above: Performed By: #### I NSULIN #### [facility] [address] [address] [address] Carolyn King Glucose [Mass/Vol] 97 mg/dL Normal 74-106 [facility] Comment on above: Performed By: #### I NSULIN #### [facility] [address] [address] [address] Carolyn King Potassium [Moles/Vol] 3.9 mmol/L Normal 3.5-5.1 [facility] Comment on above: Performed By: #### I NSULIN #### [facility] [address] [address] [address] Carolyn King Protein [Mass/Vol] 7.8 g/dL Normal 6.4-8.2 [facility] Comment on above: Performed By: #### I NSULIN #### [facility] [address] [place] [address] Dr. Carolyn King Sodium [Moles/Vol] 140 mmol/L Normal 136-145 [facility] Comment on above: Performed By: #### I NSULIN #### [facility] [address] [place] [address] Dr. Carolyn King Urea nitrogen [Mass/Vol] 16.0 mg/dL Normal 7.0-18.0 [facility] Comment on above: Performed By: #### I NSULIN #### [facility] [address] [place] [address] Dr. Carolyn King Urea nitrogen/Creatinine [Mass ratio] 14.7 mg/mg Normal [facility] Comment on above: Performed By: #### I NSULIN #### [facility] [address] [address] [address] Carolyn King URINE MICROSCOPIC ONLYon BACTERIA NONE SEEN Normal NONE SEEN [facility] Comment on above: Performed By: #### I NSULIN #### [facility] [address] [place] [address] Dr. Carolyn King Bacteria identified Cx Nom (U) NOT INDICATED Normal [facility] Comment on above: Performed By: #### I NSULIN #### [facility] [address] [place] [address] Dr. Carolyn King CAST NONE SEEN Normal NONE SEEN [facility] Comment on above: Performed By: #### I NSULIN #### [facility] [address] [place] [address] Dr. Carolyn Kign Crystals LM Nom (Urine sed) NONE SEEN Normal NONE SEEN [facility] Comment on above: Performed By: #### I NSULIN #### [facility] [address] [place] [address] Dr. Carolyn King Epithelial cells LM Ql (Urine sed) NONE SEEN Normal NONE SEEN /RARE [facility] Comment on above: Performed By: #### I NSULIN #### [facility] [address] [place] [address] Dr. Carolyn King MUCOUS NONE SEEN Normal NONE SEEN [facility] Comment on above: Performed By: #### I NSULIN #### [facility] [address] [place] [address] Dr. Carolyn King RBC 2-5 Abnormal 0-2 [facility] Comment on above: Performed By: #### I NSULIN #### [facility] [address] [place] [address] Dr. Carolyn King WBC 0-2 Abnormal NONE SEEN [facility] Comment on above: Performed By: #### I NSULIN #### [facility] [address] [place] [address] Dr. Carolyn King US SINGLE QUAD RT [...] by: BANDAR QUEZADA Date: 2022-01-05 10:15 Normal [facility] NM HEPATOBILIARY SCAN W EFon 12-27-2021 PR [...] LAURY SNYDER Date: 2021-12-27 12:16 Normal [facility] CT ABD/PELV W CONon 12-12-19 CT [...] LAURY ZEPEDA Date: 2021-12-11 07:30 Normal [facility] CREATININEon 12-09-2021 Creatinine [Mass/Vol] 0.98 mg/dL Normal 0.70-1.30 [facility] Comment on above: Performed By: #### I NSULIN #### [facility] [address] [address] [address] Carolyn King EGFR-AF LEBANESE >60 Normal >=60 [facility] Comment on above: Performed By: #### I NSULIN #### [facility] [address] [address] [address] Carolyn King EGFR-NON AF LEBANESE >60 Normal >=60 [facility] Comment on above: Performed By: #### I NSULIN #### [facility] [address] [address] [address] Carolyn King BN SPINE, LUMBOSACRAL; 2 OR 3 VIEWSon 11-08-2021 BN SPINE, LUMBOSACRAL; 2 OR 3 VIEWS Patient Name: JAY CARR STUDY: Lumbar spine dated 11/08/2021. INDICATION: AP/LAT M54.50: Lumbar back pain M48.062: Lumbar stenosis with neurogenic claudication COMPARISON: None. ACCESSION NUMBER(S): [id number] ORDERING CLINICIAN: KENTON LAWSON TECHNIQUE: AP and [...] above. Electronically signed by: BATSHEVA VIDAL MD [facility] Post Op (Orthopaedic Surgery )on 11-08-2021 [...] Work Phone: CBCon 09-29-2021 HCT Canceled [facility] Comment on above: Order Comment: TEST CBC WAS CANCELLED, 09/29/2021 08:10 NO SPECIMEN RECEIVED IN LAB. Performed By: #### C BC ####[id number] [place] [address] HGB Canceled [facility] Comment on above: Order Comment: TEST CBC WAS CANCELLED, 09/29/2021 08:10 NO SPECIMEN RECEIVED IN LAB. Performed By: #### C BC ####[id number] [place] [address] MCHC Canceled [facility] Comment on above: Order Comment: TEST CBC WAS CANCELLED, 09/29/2021 08:10 NO SPECIMEN RECEIVED IN LAB. Performed By: #### C BC ####[id number] [place] [address] MCV Canceled [facility] Comment on above: Order Comment: TEST CBC WAS CANCELLED, 09/29/2021 08:10 NO SPECIMEN RECEIVED IN LAB. Performed By: #### C BC ####[id number] [place] [address] NUCLEATED RBC Canceled Normal [facility] Comment on above: Order Comment: TEST CBC WAS CANCELLED, 09/29/2021 08:10 NO SPECIMEN RECEIVED IN LAB. Performed By: #### C BC ####[id number] [place] [address] PLT Canceled [facility] Comment on above: Order Comment: TEST CBC WAS CANCELLED, 09/29/2021 08:10 NO SPECIMEN RECEIVED IN LAB. Performed By: #### C BC ####[id number] [place] [address] RBC Canceled [facility] Comment on above: Order Comment: TEST CBC WAS CANCELLED, 09/29/2021 08:10 NO SPECIMEN RECEIVED IN LAB. Performed By: #### C BC ####[id number] [place] [address] RDW-CV Canceled [facility] Comment on above: Order Comment: TEST CBC WAS CANCELLED, 09/29/2021 08:10 NO SPECIMEN RECEIVED IN LAB. Performed By: #### C BC ####[id number] [place] [address] WBC Canceled [facility] Comment on above: Order Comment: TEST CBC WAS CANCELLED, 09/29/2021 08:10 NO SPECIMEN RECEIVED IN LAB. Performed By: #### C BC ####[id number] [place] [address] BASIC METABOLIC PANELon ANION GAP Canceled [facility] Comment on above: Order Comment: TEST BASIC METABOLIC PANEL WAS CANCELLED, 09/28/2021 04:56 Performed By: #### B MP ####[id number] [place] [address] BICARBONATE Canceled [facility] Comment on above: Order Comment: TEST BASIC METABOLIC PANEL WAS CANCELLED, 09/28/2021 04:56 Performed By: #### B MP ####[id number] [place] [address] CALCIUM Canceled [facility] Comment on above: Order Comment: TEST BASIC METABOLIC PANEL WAS CANCELLED, 09/28/2021 04:56 Performed By: #### B MP ####[id number] [place] [address] CHLORIDE Canceled [facility] Comment on above: Order Comment: TEST BASIC METABOLIC PANEL WAS CANCELLED, 09/28/2021 04:56 Performed By: #### B MP ####[id number] [place] [address] CREATININE Canceled [facility] Comment on above: Order Comment: TEST BASIC METABOLIC PANEL WAS CANCELLED, 09/28/2021 04:56 Performed By: #### B MP ####[id number] [place] [address] eGFR FEMALE Canceled [facility] Comment on above: Order Comment: TEST BASIC METABOLIC PANEL WAS CANCELLED, 09/28/2021 04:56 Result Comment: CALC ULATIONS OF ESTIMATED GFR ARE PERFORMED USING THE 2020 CKD-EPI STUDY REFIT EQUATION WITHOUT THE RACE VARIABLE FOR THE IDMS-TRACEABLE CREATININE METHODS. https://jasn.asnjournals.org/content/early//ASN.55695 48593 Performed By: #### B MP ####[id number] [place] [address] eGFR MALE Canceled [facility] Comment on above: Order Comment: TEST BASIC METABOLIC PANEL WAS CANCELLED, 09/28/2021 04:56 Result Comment: CALC ULATIONS OF ESTIMATED GFR ARE PERFORMED USING THE 2020 CKD-EPI STUDY REFIT EQUATION WITHOUT THE RACE VARIABLE FOR THE IDMS-TRACEABLE CREATININE METHODS. https://jasn.asnjournals.org/content//ASN.19484 08872 Performed By: #### B MP ####[id number] [place] [address] GLUCOSE Canceled [facility] Comment on above: Order Comment: TEST BASIC METABOLIC PANEL WAS CANCELLED, 09/28/2021 04:56 Performed By: #### B MP ####[id number] [place] [address] POTASSIUM Canceled [facility] Comment on above: Order Comment: TEST BASIC METABOLIC PANEL WAS CANCELLED, 09/28/2021 04:56 Performed By: #### B MP ####[id number] [place] [address] SODIUM Canceled [facility] Comment on above: Order Comment: TEST BASIC METABOLIC PANEL WAS CANCELLED, 09/28/2021 04:56 Performed By: #### B MP ####[id number] [place] [address] UREA NITROGEN Canceled [facility] Comment on above: Order Comment: TEST BASIC METABOLIC PANEL WAS CANCELLED, 09/28/2021 04:56 Performed By: #### B MP ####[id number] [place] [address] BASIC METABOLIC PANELon 04-0 Anion gap [Moles/Vol] 16 mmol/L Normal 10 - 20 [facility] Comment on above: Performed By: #### B MP #### [facility] [id number] [place] [address] Calcium [Mass/Vol] 9.0 mg/dL Normal 8.6 - 10.6 [facility] Comment on above: Performed By: #### B MP #### [facility] [address] [place] [address] Chloride [Moles/Vol] 103 mmol/L Normal 98 - 107 [facility] Comment on above: Performed By: #### B MP #### [facility] [address] [place] [address] Creatinine [Mass/Vol] 0.83 mg/dL Normal 0.50 - 1.30 [facility] Comment on above: Performed By: #### B MP #### [facility] [address] [place] [address] eGFR MALE >90 Normal >90 [facility] Comment on above: Result Comment: CALC ULATIONS OF ESTIMATED GFR ARE PERFORMED USING THE 2020 CKD-EPI STUDY REFIT EQUATION WITHOUT THE RACE VARIABLE FOR THE IDMS-TRACEABLE CREATININE METHODS. https://jasn.asnjournals.org/content/early//ASN.35391 83213 Performed By: #### B MP #### [facility] [id number] [place] [address] Glucose [Mass/Vol] 141 mg/dL High 74 - 99 [facility] Comment on above: Performed By: #### B MP #### [facility] [address] [place] [address] HCO3 (Bld) [Moles/Vol] 24 mmol/L Normal 21 - 32 [facility] Comment on above: Performed By: #### B MP #### [facility] [address] [place] [address] Potassium [Moles/Vol] 4.4 mmol/L Normal 3.5 - 5.3 [facility] Comment on above: Performed By: #### B MP #### [facility] [address] [place] [address] Sodium [Moles/Vol] 139 mmol/L Normal 136 - 145 [facility] Comment on above: Performed By: #### B MP #### [facility] [address] [place] [address] Urea nitrogen [Mass/Vol] 13 mg/dL Normal 6 - 23 [facility] Comment on above: Performed By: #### B MP #### [facility] [address] [place] [address] CBCon 09-27-2021 HCT Canceled [facility] Comment on above: Order Comment: TEST URINALYSIS WAS CANCELLED, 09/19/2021 12:02 DUPLICATE ORDER. Performed By: #### U A #### [facility] [address] [place] [address] HGB Canceled [facility] Comment on above: Order Comment: TEST URINALYSIS WAS CANCELLED, 09/19/2021 12:02 DUPLICATE ORDER. Performed By: #### U A #### [facility] [address] [place] [address] MCHC Canceled [facility] Comment on above: Order Comment: TEST URINALYSIS WAS CANCELLED, 09/19/2021 12:02 DUPLICATE ORDER. Performed By: #### U A #### [facility] [address] [place] [address] MCV Canceled [facility] Comment on above: Order Comment: TEST URINALYSIS WAS CANCELLED, 09/19/2021 12:02 DUPLICATE ORDER. Performed By: #### U A #### [facility] [address] [place] [address] NUCLEATED RBC Canceled Normal [facility] Comment on above: Order Comment: TEST URINALYSIS WAS CANCELLED, 09/19/2021 12:02 DUPLICATE ORDER. Performed By: #### U A #### [facility] [address] [place] [address] PLT Canceled [facility] Comment on above: Order Comment: TEST URINALYSIS WAS CANCELLED, 09/19/2021 12:02 DUPLICATE ORDER. Performed By: #### U A #### [facility] [address] [place] [address] RBC Canceled [facility] Comment on above: Order Comment: TEST URINALYSIS WAS CANCELLED, 09/19/2021 12:02 DUPLICATE ORDER. Performed By: #### U A #### [facility] [address] [place] [address] RDW-CV Canceled [facility] Comment on above: Order Comment: TEST URINALYSIS WAS CANCELLED, 09/19/2021 12:02 DUPLICATE ORDER. Performed By: #### U A #### [facility] [address] [place] [address] WBC Canceled [facility] Comment on above: Order Comment: TEST URINALYSIS WAS CANCELLED, 09/19/2021 12:02 DUPLICATE ORDER. Performed By: #### U A #### [facility] [address] [place] [address] Erythrocyte distribution width (RBC) [Ratio] 13.1 % Normal 11.5 - 14.5 [facility] Comment on above: Performed By: #### U A #### [facility] [address] [place] [address] Hematocrit (Bld) [Volume fraction] 41.3 % Normal 41.0 - 52.0 [facility] Comment on above: Performed By: #### U A #### [facility] [address] [place] [address] Hemoglobin (Bld) [Mass/Vol] 14.1 g/dL Normal 13.5 - 17.5 [facility] Comment on above: Performed By: #### U A #### [facility] [address] [place] [address] MCHC (RBC) [Mass/Vol] 34.1 g/dL Normal 32.0 - 36.0 [facility] Comment on above: Performed By: #### U A #### [facility] [address] [place] [address] MCV (RBC) [Entitic vol] 93 fL Normal 80 - 100 [facility] Comment on above: Performed By: #### U A #### [facility] [address] [place] [address] NUCLEATED RBC 0.0 /100 WBC Normal 0.0-0.0 [facility] Comment on above: Performed By: #### U A #### [facility] [address] [place] [address] Platelets (Bld) [#/Vol] 217 10*3/uL Normal 150 - 450 [facility] Comment on above: Performed By: #### U A #### [facility] [address] [place] [address] RBC 4.42 x10E12/L Low 4.50 - 5.90 [facility] Comment on above: Performed By: #### U A #### [facility] [address] [place] [address] WBC (Bld) [#/Vol] 13.6 10*3/uL High 4.4 - 11.3 [facility] Comment on above: Performed By: #### U A #### [facility] [address] [place] [address] Daily Progress Note-Orthopae kaison 09-27-2021 Daily Progress Note-Orthopaedics Service: Orthopaedics Subjective Data: JAY CARR is a 61 year old Male who is Hospital Day # 2 and POD #1 for 1. XLIF L3/4, 4/5;2. Navigated percutaneous PSIF L3-5. Patient resting comfortably in bed. Pain well controlled. Denies CP, SOB, F/C, N/V. No new N/T. Objective Data: Objective Information: T PRBPMAPSpO2 [id number]/7598% Date/Time09/27 5: 5: 5: 5: 5:39 Range(36.5C [...] Recent Arterial Blood Gas Results 09/26/2021 12:37 [id number] pH7.37 nDT111 HI1154 Base Excess0.8null Assessment and Plan: Code Status: Code StatusFull Code Assessment: 61 y/o male s/p L3/4-4/5 XLIF, L3-5 perc PSIF on 09/26/[address] Richardson, doing well. Plan: - WB status: WBAT, no excessive bending/twisting - DVT ppx: SCDs + Teds at all times while in bed, ambulation - Diet: Clear liquid diet, ADAT to regular - [employer] => PO pain medication per pain protocol [...] Timothy Steinberg M.D. 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 Attestation: Note Completion: [...] the note. I personally evaluated the patient [id number] Electronic Signatures: Sal Richardson) (Signed 29-Sep-2021 11:37) Authored: Note Completion Co-Signer: Service, Subjective Data, Objective Data, Assessment and Plan, Note Completion Timothy Steinberg (Resident)) (Signed 27-Sep-2021 06:49) Authored: Service, Subjective Data, Objective Data, Assessment and Plan, Note Completion Last Updated: 29-Sep-2021 11:37 by Sal Richardson) [facility] Order Reconciliationon 09-27 Order Reconciliation Page [...] unarousable, and respiratory rate lessClinician Notes: HOLD [employer] Infusion and notify H.O. immediately 26-Sep-2021 15:16 [...] at Discharge: (more content not included)... [facility] PT Evaluation i1-rx-ezwrsjej t - co-tx c/ OT for maximized saon 09-27-2021 PT Evaluation i6-qn-ghbozbcrl - co-tx c/ OT for maximized sa Rehab: Info: Mode of Treatmentco-treatment; physical therapy; co-tx c/ OT for maximized safety and mobility Time IN10:00 Time OUT10:27 Total Treatment [id number] Patient in ... at end of sessionchair; alarm on Communicated with ... at end of sessionbedside nurse Patient Effortexcellent Symptoms Noted During/After Treatmentnone Patient Profile Reviewedyes Onset of Illness/Injury or Date of [id number] Reason for ReferralXLIF L3/4, 4/5;2. Navigated percutaneous [...] Mobility/Tone: Bed Mobility Assessment/Interventions supine to sit Fdnoyf-ta-Xxd [place] (Bed Mobility)standby assist; 1 person assist Assistive Device (Bed Mobility)bed rails Comment, Bed MobilityPt. educated on log roll Transfer Assessment/Interventions sit to stand transfer; stand to sit transfer; bed to chair transfer Bed-Chair [place] (Transfers)1 person assist; standby assist; verbal cues Sit-Stand [place] (Transfers)standby assist; 1 person assist Sit-Stand Assistive Device (Transfers)no AD Stand-Sit [place] (Transfers)standby assist; 1 person assist Stand-Sit Assistive [...] Motor: Sitting, Static (Balance)SBA Sitting, Dynamic (Balance)SBA Nlj-xi-Itdyo (Balance)SBA Standing, Static (Balance)SBA Standing, Dynamic (Balance)SBA [...] goals Thera (more content not included)... [facility] ARTERIAL FULL PANELon 2021 Anion gap [Moles/Vol] 11 mmol/L Normal 10 - 25 [facility] Comment on above: Performed By: #### A FPA4 #### [facility] [address] [place] [address] BASE EXCESS-BLOOD 0.8 mmol/L Normal -2.0 - 3.0 [facility] Comment on above: Performed By: #### A FPA4 #### [facility] [address] [place] [address] BICARB, CALCULATED 26.6 mmol/L High 22.0 - 26.0 [facility] Comment on above: Performed By: #### A FPA4 #### [facility] [address] [place] [address] CALCIUM,IONIZED 1.15 mmol/L Normal 1.10 - 1.33 [facility] Comment on above: Performed By: #### A FPA4 #### [facility] [address] [place] [address] Chloride [Moles/Vol] 102 mmol/L Normal 98 - 107 [facility] Comment on above: Performed By: #### A FPA4 #### [facility] [address] [place] [address] Glucose [Mass/Vol] 114 mg/dL High 74 - 99 [facility] Comment on above: Performed By: #### A FPA4 #### [facility] [address] [place] [address] Hematocrit (Bld) [Volume fraction] 42.0 % Normal 41.0 - 52.0 [facility] Comment on above: Performed By: #### A FPA4 #### [facility] [address] [place] [address] Hemoglobin (Bld) [Mass/Vol] 14.1 g/dL Normal 13.5 - 17.5 [facility] Comment on above: Performed By: #### A FPA4 #### [facility] [address] [place] [address] Lactate [Moles/Vol] 1.3 mmol/L Normal 0.4 - 2.0 [facility] Comment on above: Performed By: #### A FPA4 #### [facility] [address] [place] [address] OXY HGB 97.5 % Normal 94.0 - 98.0 [facility] Comment on above: Performed By: #### A FPA4 #### [facility] [address] [place] [address] Oxygen (Bld) [Partial pressure] 160 mm[Hg] High 85 - 95 [facility] Comment on above: Performed By: #### A FPA4 #### [facility] [address] [place] [address] PATIENT TEMPERATURE 37.0 degrees C Normal [facility] Comment on above: Result Comment: NOTE : PATIENT RESULTS ARE NOT CORRECTED FOR TEMPERATURE. Performed By: #### A FPA4 #### [facility] [address] [place] [address] PCO2 46 mmHg High 38 - 42 [facility] Comment on above: Performed By: #### A FPA4 #### [facility] [address] [place] [address] pH (Bld) 7.37 [pH] Low 7.38 - 7.42 [facility] Comment on above: Performed By: #### A FPA4 #### [facility] [address] [place] [address] Potassium [Moles/Vol] 4.8 mmol/L Normal 3.5 - 5.3 [facility] Comment on above: Performed By: #### A FPA4 #### [facility] [address] [place] [address] SO2 100 % Normal 94 - 100 [facility] Comment on above: Performed By: #### A FPA4 #### [facility] [address] [place] [address] Sodium [Moles/Vol] 135 mmol/L Low 136 - 145 [facility] Comment on above: Performed By: #### A FPA4 #### [facility] [address] [place] [address] Admission Risk Screen - Adul ton 09-26-2021 [...] AlertFor Ebola-like Symptoms: Isolate Patient and Notify Provider/Outreach Clinician For Contact: Notify Provider/Outreach Clinician Advance Directive: Advance Directive/DNRno Advance Directive Information [...] Communicatenone Learning Preferencesaudio Cultural Considerationsnone Developmental Considerationsnone Buddhist Considerationsnone Learning Assessment (Other Learner): Other learner availableno Depression Screen: During the past month, have you often been bothered by feeling down, depressed or hopelessno During the past month, have you often had little interest or pleasure in doing thingsno Have you had any thoughts of harming anyone elseno Preston Suicide: Risk Screen Not Applicable/Able to Answerable to be screened In the Past Month: Have you wished you were or could go to sleep and not wake upno(1) In the Past Month: Have you had any actual thoughts of killing yourself no(1) Lifetime: Have you ever done, started to do, or prepared to do anything to end your lifeno(1) Preston Suicide Risknegative Adult Nutrition Screen: Have you [...] Spiritual Screen: Are there any cultural, spiritual, orthodox practices/values/needs that are important for us to knowno CAGE: Is this an injured patient at a Trauma Center ([facility]/Buddy/Bernabe/[place] /[place]): no Vaccinations: Vaccination - Influenza Vaccination Screen: Is it flu season (between and September 21)Yes Screening for identified contraindications to influenza vaccinationpatient already received vaccine this season Vaccination - Pneumonia Vaccination Screen: Patient has received a previous pneumonia vaccine:no/unknown... Immunocompetent persons with underlying chronic conditions or r (more content not included)... [facility] Daily Progress Note-Orthopae dicson 09-26-2021 Daily [...] Recent Arterial Blood Gas Results 09/26/2021 12:37 [id number] pH7.37 iJP866 ZF7460 Base Excess0.8null Assessment and Plan: Code Status: Code StatusFull Code Assessment: 61 y/o male s/p L3/4-4/5 XLIF, L3-5 perc PSIF on 09/26/[address] Richardson, doing well. Plan: - WB status: WBAT, no excessive bending/twisting - DVT ppx: SCDs + Teds at all times while in bed, ambulation - Diet: Clear liquid diet, ADAT to regular - [employer] => PO pain medication per pain protocol - 24 hr perioperative abx: clinda x 4 doses - FEN: Continue NS at 100cc/hr; HLIV with good PO intake - Bowel Regimen: Colace, Dulcolax, Senna - PT/OT consult - Continue home medications - Discontinue goodrich catheter POD #1 - Decadron 4mg q6hr x4 doses Dispo: to VERONICA Steinberg M.D. 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 Attestation: Note Completion: [...] the note. I personally evaluated the patient [id number] Electronic Signatures: Sal Richardson) (Signed 29-Sep-2021 11:38) Authored: Note Completion Co-Signer: Service, Subjective Data, Objective Data, Assessment and Plan, Note Completion Timothy Steinberg (Resident)) (Signed 26-Sep-2021 15:36) Authored: Service, Subjective Data, Objective Data, Assessment and Plan, Note Completion Last Updated: 29-Sep-2021 11:38 by Sal Richardson) [facility] Discharge Planning [id number] 0 09-26-2021 Discharge Planning Note2 Discharge Planning: Planned Dispositionhome Anticipated Discharge [id number] Discharge Planning 09/27/21 1335 Transitional Care Coordination Progress Note: TCC verified demo is correct. lives at home with . pcp dania armstrong. received covid vaccine x2 and booster x1. feels safe to return home today Patient discussed during interdisciplinary rounds. Team members present: MD/FRONT END DEVELOPER, TCC, Plan per Medical/Surgical team: patient goodrich out. manager of application development changed to oral with pain control. MR for dc after working with PT OT today Status: inpatient Payor source: commercial Discharge disposition: home no needs per PT OT eval Potential Barriers: ADOD: today Calli Jones RN TCC 09/27/21 Patient discharged home with . Heather Foster RN Assessment: Discharge Planning Assessment [id number] Discharge Planning Assessment Completed bycalli jones RN TCC Primary Contact Name and Numberwife gus- [phone] Prior Level of FunctioningNA Lives Withspouse(1) Living Arrangementshouse(1) Stated Reason for Admissionback and hip pain(1) [place] [facility]CP[place]ia Armstrong [facility]/ Injury/ Need Assist with AmbulationNA DME Supplier Name/NumberNA Home Care Agency/Support ServicesNA Diabetic/Supplies NeededNA Hemodialysis ScheduleNA Resource/Environmental Concernsnone(1) [place]) Services Anticipated at Transitionnon(1) Readmission Within the Last 30 Daysno previous admission in last 30 days PCP Last Date [place] 2020 [employer] Home Who/HowWife [place] [facility] [place] and will be ride home today Medication Adherence/Afford/Obtainy es O2 LPMNA Nursing Checklist: Lines/Cathetersremoved/a ppropriate for next level of care Discharge Med Rec Reconciled with Loree Patient has Prescriptionsyes Transportation for Discharge Confirmedyes Follow up Reviewedyes Discharge Instructions Reviewed WithPatient Discharge Instructions Outcomeverbalize recall/understanding Discharge Instructions Review Completed with Patient/Family (diet, activity, pt instructions)yes Discharge Documentation: Discharge/Transfer Date/[id number]-5815 17:00 Discharged Accompanied Byspouse Discharge Modewheelchair Transportation Methodprivate car Code StatusCode Status order at time of discharge: Full Code [place] DNR Form Sent with Patient and/or Familyn/a Valuables/Medications/Be longings [facility]es [facility] Electronic Signatures: HEDY SHEPPARD) (Signed 26-Sep-2021 21:59) Authored: Discharge Planning, Assessment, Discharge Documentation Heather Foster) (Signed 27-Sep-2021 17:12) Authored: Discharge Planning, Nursing Checklist, Discharge Documentation Calli Jones (RN) (Signed 27-Sep-2021 13:35) Authored: Discharge Planning, Assessment Last Updated: 27-Sep-2021 17:12 by Heather Foster (RN) References: 1. Data Referenced From Patient Profile - Adult v2 26-Sep-2021 21:07 [facility] Discharge [id number] 022 Discharge Profile2 Discharge Orders: Anticipated Discharge Date: Anticipated Discharge [id number] Problem List: Additional Dx: Lumbar radicular pain: [...] ANTONIO REMOVED IN 3 WKS. [place] [address] [address] [facility] AT 0930 WITH [facility]. REHAB FACILITIES OR HOME CARE MAY REMOVE ANTOINO OR SUTURES. Wound Care 2: Wound SiteBACK (Lumbar Spine) Wound Typesurgical incision Change Dressingdaily Cleanse Withsoap and water Cover Withabdominal dressing Tape Withpaper tape Instructionsno lotions, creams, or tub soaks Other InstructionsPLEASE HAVE ANTONIO REMOVED IN 3 WKS. [place] [address] [address] [facility] 5TH FLOOR ON 10/18/2021 AT [...] floor. Patient was initially started on dilaudid [employer] x24 hours and then transitioned to an [...] Call to Schedule in6 weeks, PLEASE CALL [phone] TO SCHEDULE YOUR AMBER (more content not included)... [facility] - [facility] PREOPERATIVE DIAGNOSIS: Spinal stenosis and spondylolisthesis L3-4 and L4-5 in a patient with unrelenting claudication and radiculopathy. POSTOPERATIVE DIAGNOSIS: Spinal stenosis and spondylolisthesis L3-4 and L4-5 in a patient with unrelenting claudication and radiculopathy. OPERATION/PROCEDURE: Anterior lumbar interbody fusion by extreme lateral approach at L3-4 and L4-5 with use of interbody cage device x2. SURGEON: Sal Richardson MD. FISHER CLAM(S): biology research assistant: Cb Casanova PA-C. Second assistant terminal manager: Brannon Steinberg, second resident. ANESTHESIA: ESTIMATED [...] Deep layers were repaired using 0 Vicryl hzkvxy-zq-nekrw sutures, deep dermal layer was repaired using 2-0 Vicryl sutures, and the skin was repaired using antonio. Dry sterile dressing was ap (more content not included)... [facility] Operative Reports - [facility] [place] PREOPERATIVE DIAGNOSIS: POSTOPERATIVE DIAGNOSIS: OPERATION/PROCEDURE: Posterior spinal [...] Deep layers were repaired using 0 Vicryl byjjxd-ni-rtawx sutures, deep dermal layer was repaired using [...] instrumentation and fusion. SURGEON: Sal Richardson MD. FISHER CLAM(S): ANESTHESIA: This is part 2 of a two-staged procedure. Part 1 was dictated in dictation #[id number]. Refer to dictation #[id number] for all details regarding the first part of the surgery. Sal Richardson MD EST EST DICTATION NUMBER: [id number] INTERNAL JOB NUMBER: [id number] CC: Sal Richardson MD, Electronic Signatures: Sal Richardson) (Signed on 03-Oct-2021 12:03) Authored Unsigned, Draft (SYS GENERATED) (Entered on 30-Sep-2021 07:37) Entered Last Updated: 03-Oct-2021 12:03 by Sal Richardson) [facility] Order Reconciliationon 09-26 Order Reconciliation Page 1 Admission Reconciliation Document Reconciliation Type: Admission from OR requested on behalf of Timothy Steinberg (Resident) done by Timothy Steinberg (Resident)) Admission from OR - Reconciliation: 26-Sep-2021 18:10 by: Timothy Steinberg (Resident)) Home MedicationsEnteredLast Dose TakenReconciled with current Order Reconciliation Comment/ Additional Information hydroxychloroquine 200 mg oral tablet 1 tab(s) oral 2 times a [id number]-Nxt-138726-Sep-2021 Hydroxychloroquine - PEDS Tablet (PLAQUENIL)DOSE = 200 mg Oral 2 Times a Dayhydroxychloroquine 200 mg oral tablet continued as the inpatient order Hydroxychloroquine - PEDS irbesartan 300 mg oral tablet 1 tab(s) oral once a [id number]-662 2 Reviewed and Held methocarbamol 500 mg oral tablet 2 tab(s) oral every 8 qfoej21-Zbv-038426-Sep-2021 Reviewed and Held NIFEdipine 30 mg oral tablet, extended release 1 tab(s) oral once a day NIFEdipine (PROCARDIA XL) Extended Release Tablet, Extended ReleaseDOSE = 30 mg Oral DailyNIFEdipine 30 mg oral tablet, extended release continued as the inpatient order NIFEdipine (PROCARDIA XL) Extended Release pantoprazole 40 mg oral delayed release tablet 1 tab(s) oral once a day [id number] Pantoprazole Enteric Coated Tablet (PROTONIX)DOSE = 40 mg Oral Dailypantoprazole 40 mg oral delayed release tablet continued as the inpatient order Pantoprazole tiZANidine 4 mg oral tablet 1 oral Reviewed and Held Vitamin C 1 3 times a hcw21-Vxy-837496-Nir-099 2 Reviewed and Held Vitamin D3 1 3 times a pjs45-Tpt-924694-Jgc-996 2 Reviewed and Held Zinc 140 mg [...] of 4 mg regardless of dose. HYDROmorphone [employer] 25 mg/ NaCL 0.9% 50 mL (DILAUDID IV [employer])DEMAND/ [employer] Dose = 0.2 mgDELAY/ Lockout Time Period [...] unarousable, and respiratory rate lessClinician Notes: HOLD [employer] Infusion and notify H.O. immediately Ondansetron Injectable [...] hours: Do NOT use with Bisacodyl. [facility] Patient Profile - Adult v2on 09-26-2021 Patient Profile - Adult v2 Profile: Initial Info: How to be AddressedPaul(1) Spoken Language PreferredEnglish (1) Stated Reason for Admissionback and hip pain Wants Family/Rep Notified of Admissionno Notify PCPdo not notify PCP Informed of Patient [place] Patient Belongingsremains with patient Patient Belongings Remaining [...] From 1. Vital Signs 26-Sep-2021 07:09 [facility] Patient Profile - Preop v3on 09-26-2021 Patient Profile - Preop v3 Patient Profile - Preop: Initial Info: Patient DemographicsName: JAY CARR Date: 1960 [address]: [address] [place] [address] [address] Primary Phone [phone] How to be AddressedPaul Spoken Language PreferredEnglish [...] Withspouse Living Arrangementshouse Resource/Environmental Concernsnone [facility] Anticipated at Transitionnone Tobacco Use: Tobacco Useno Pre-op Checklist: Arrival [id number] NPOyes ID Band On Patientpatient ID (name), [...] 26-Sep-2021 07:11 by Maisha Meyer (ALICE) [facility] CORONAVIRUS 2019, SCREEN ASY MPTOMATICon 09-25-2021 SARS-CoV-2 (COVID-19) RNA LU+probe Ql (Unsp spec) Not detected [facility] Comment on above: Result Comment: . [...] patient management decisions. Fact sheet for providers: https://www.fda.gov/media/754033/download Fact sheet for patients: https://www.fda.gov/media/435723/download This test has received FDA Emergency Use Authorization (EUA) and has been verified by [facility] ([facility]). This test is only authorized for the duration of time that circumstances exist to justify the authorization of the emergency use of in vitro diagnostic tests for the detection of SARS-CoV-2 virus and/or diagnosis of COVID-19 infection under section 564(b)(1) of the Act, 21 U.S.C. 360bbb-3(b)(1), unless the authorization is terminated or revoked sooner. [facility] is certified under CLIA-88 as qualified to perform high complexity testing. Testing is performed in the [facility] laboratories located at [address] [place] [address]. Performed By: #### U ARFX #### [place] [address] Lab Specimen Source Nasal, Nasopharyngeal [facility] Comment on above: Performed By: #### U ARFX #### [place] [address] Covid 19 Resultson 2 SARS-CoV-2 (COVID-19) RNA [...] You may also be contacted by the [facility] to see if any of your close [...] or Naproxen (Aleve) can also be used. Bbjd-wbb-babrjno cough and cold medicines can be used according to the instructions on the package. Some awrm-rty-dzgznvh medicines also contain acetaminophen. Make sure you [...] water are not available, use alcohol-based hand appeals assistant. Avoid touching your eyes, nose, and mouth [...] 24 mary (more content not included)... [facility] COAGULATION SCREENon 022 aPTT Coag (Bld) [Time] 34 s Normal 26 - 39 [facility] Comment on above: Result Comment: THE APTT IS NO LONGER USED FOR MONITORING UNFRACTIONATED HEPARIN THERAPY. FOR MONITORING HEPARIN THERAPY, USE THE HEPARIN ASSAY. Performed By: #### U ARFX #### [facility] [address] [place] [address] PT Coag (PPP) [Time] 11.1 s Normal 9.8 - 13.4 [facility] Comment on above: Performed By: #### U ARFX #### [facility] [address] [place] [address] PT, INR 1.0 Normal 0.9 - 1.1 [facility] Comment on above: Performed By: #### U ARFX #### [facility] [address] [place] [address] Laboratory - Blood bankon ABO group Nom [...] SCREEN PATIENT: JAY CARR LOCATION: [facility]#: [id number] : 62 AGE: SEX: M ORDERED BY: SAL RICHARDSON SOURCE: ANTERIOR NARES COLLECTED: 09/19/21 10:10 ANTIBIOTICS AT BRAEDEN.: RECEIVED : 09/19/21 12:47 SITE: Nasal R E S U L T S STAPH/MRSA SCREEN FINAL 09/20/21 13:57 NO Staphylococcus aureus ISOLATED. [facility] Comment on above: Performed By: #### S TAPH #### [facility] [address] [place] [address] TYPE + SCREENon 09-19-2021 ABO TYPE O [facility] Comment on above: Performed By: #### T +S #### [facility] [address] [place] [address] RH TYPE Negative [facility] Comment on above: Performed By: #### T +S #### [facility] [address] [place] [address] URINALYSISon 09-19-2021 Appearance (U) Canceled Normal [facility] Comment on above: Order Comment: TEST URINALYSIS WAS CANCELLED, 09/19/2021 12:02 DUPLICATE ORDER. Performed By: #### U A #### [facility] [address] [place] [address] ASCORBIC ACID Canceled Normal [facility] Comment on above: Order Comment: TEST URINALYSIS WAS CANCELLED, 09/19/2021 12:02 DUPLICATE ORDER. Result Comment: Conc entrations > = 20 mg/dL of ascorbic acid can be expected to cause strong interference in the reactions testing for glucose, nitrite and blood. It is recommended to discontinue Vitamin C administration and retest in 10 hours. Performed By: #### U A #### [facility] [address] [place] [address] Bilirubin Ql (U) Canceled Normal [facility] Comment on above: Order Comment: TEST URINALYSIS WAS CANCELLED, 09/19/2021 12:02 DUPLICATE ORDER. Performed By: #### U A #### [facility] [address] [place] [address] Color (U) Canceled [facility] Comment on above: Order Comment: TEST URINALYSIS WAS CANCELLED, 09/19/2021 12:02 DUPLICATE ORDER. Performed By: #### U A #### [facility] [address] [place] [address] Glucose Ql (U) Canceled Normal [facility] Comment on above: Order Comment: TEST URINALYSIS WAS CANCELLED, 09/19/2021 12:02 DUPLICATE ORDER. Performed By: #### U A #### [facility] [address] [place] [address] Hemoglobin Ql (U) Canceled Normal [facility] Comment on above: Order Comment: TEST URINALYSIS WAS CANCELLED, 09/19/2021 12:02 DUPLICATE ORDER. Performed By: #### U A #### [facility] [address] [place] [address] Ketones Ql (U) Canceled Normal [facility] Comment on above: Order Comment: TEST URINALYSIS WAS CANCELLED, 09/19/2021 12:02 DUPLICATE ORDER. Performed By: #### U A #### [facility] [address] [place] [address] Leukocyte esterase Test strip Ql (U) Canceled [facility] Comment on above: Order Comment: TEST URINALYSIS WAS CANCELLED, 09/19/2021 12:02 DUPLICATE ORDER. Performed By: #### U A #### [facility] [address] [place] [address] Nitrite Ql (U) Canceled Normal [facility] Comment on above: Order Comment: TEST URINALYSIS WAS CANCELLED, 09/19/2021 12:02 DUPLICATE ORDER. Performed By: #### U A #### [facility] [address] [place] [address] pH Canceled [facility] Comment on above: Order Comment: TEST URINALYSIS WAS CANCELLED, 09/19/2021 12:02 DUPLICATE ORDER. Performed By: #### U A #### [facility] [address] [place] [address] Protein Ql (U) Canceled Normal [facility] Comment on above: Order Comment: TEST URINALYSIS WAS CANCELLED, 09/19/2021 12:02 DUPLICATE ORDER. Performed By: #### U A #### [facility] [address] [place] [address] Specific gravity (U) [Rel density] Canceled [facility] Comment on above: Order Comment: TEST URINALYSIS WAS CANCELLED, 09/19/2021 12:02 DUPLICATE ORDER. Performed By: #### U A #### [facility] [address] [place] [address] UROBILINOGEN Canceled [facility] Comment on above: Order Comment: TEST URINALYSIS WAS CANCELLED, 09/19/2021 12:02 DUPLICATE ORDER. Performed By: #### U A #### [facility] [address] [place] [address] URINALYSIS WITH CULTURE IF I NDICATEDon 09-19-2021 Appearance (U) CLEAR Normal CLEAR [facility] Comment on above: Performed By: #### U ARFX #### [facility] [address] [place] [address] Bilirubin Ql (U) Negative Normal NEGATIVE [facility] Comment on above: Performed By: #### U ARFX #### [facility] [address] [place] [address] Color (U) YELLOW Normal STRAW,YELL [facility] Comment on above: Performed By: #### U ARFX #### [facility] [address] [place] [address] Glucose Ql (U) Negative Normal NEGATIVE [facility] Comment on above: Performed By: #### U ARFX #### [facility] [address] [place] [address] Hemoglobin Ql (U) Negative Normal NEGATIVE [facility] Comment on above: Performed By: #### U ARFX #### [facility] [address] [place] [address] Ketones Ql (U) Negative Normal NEGATIVE [facility] Comment on above: Performed By: #### U ARFX #### [facility] [address] [place] [address] Leukocyte esterase Test strip Ql (U) Negative Normal NEGATIVE [facility] Comment on above: Performed By: #### U ARFX #### [facility] [address] [place] [address] Nitrite Ql (U) Negative Normal NEGATIVE [facility] Comment on above: Performed By: #### U ARFX #### [facility] [address] [place] [address] pH (U) 6.0 [pH] Normal 5.0 - 8.0 [facility] Comment on above: Performed By: #### U ARFX #### [facility] [address] [place] [address] Protein Ql (U) Negative Normal NEGATIVE [facility] Comment on above: Performed By: #### U ARFX #### [facility] [address] [place] [address] Specific gravity (U) [Rel density] 1.016 Normal 1.005 - 1.035 [facility] Comment on above: Performed By: #### U ARFX #### [facility] [address] [place] [address] Urobilinogen (U) [Mass/Vol] mg/dL Normal 0.0 - 1.9 [facility] Comment on above: Performed By: #### U ARFX #### [facility] [address] [place] [address] Color (U) YELLOW See Below [facility]esthesiol [facility]-Ctr [...] may no (more content not included)... [facility] Visiton 08-03-2021 Follow-up visit Diagnoses/Problems Lumbar [...] Hold For - Scheduling,Retrospective Authorization Requested for: [id number] Lumbar back pain, Lumbar stenosis with neurogenic [...] disorder with myelopathy. COMPARISON: None. ACCESSION NUMBER(S): [id number] ORDERING CLINICIAN: SAL RICHARDSON FINDINGS: C-spine, two views Anterior spinal fusion C5-C7 with intact hardware. There is normal alignment. No fracture. No degenerative changes seen. IMPRESSION: Anterior spinal fusion C5-C7 without evidence hardware failure Electronically signed by: JULIA ARAIZA MD [facility] CORONAVIRUS 2018, SCREEN ASY MPTOMATICon 07-05-2021 DATE OF SYMPTOM ONSET [[id number]]? Canceled [facility] Comment on above: Order Comment: TEST CORONAVIRUS 2018, SCREEN ASYMPTOMATIC WAS CANCELLED, 07/05/2021 13:31 ptdid not have test done.. Performed By: #### U ARFX #### [facility] [address] [place] [address] SARS-CoV-2 (COVID-19) RNA LU+probe Ql (Unsp spec) Canceled [facility] Comment on above: Order Comment: TEST [...] patient management decisions. Fact sheet for providers: https://www.fda.gov/media/348441/download Fact sheet for patients: https://www.fda.gov/media/644720/download This test has received FDA Emergency Use Authorization (EUA) and has been verified by [facility] ([facility]). This test is only authorized for the duration of time that circumstances exist to justify the authorization of the emergency use of in vitro diagnostic tests for the detection of SARS-CoV-2 virus and/or diagnosis of COVID-19 infection under section 564(b)(1) of the Act, 21 U.S.C. 360bbb-3(b)(1), unless the authorization is terminated or revoked sooner. [facility] is certified under CLIA-88 as qualified to perform high complexity testing. Testing is performed in the [facility] laboratories located at [address] [place] [address]. Performed By: #### U ARFX #### [place] [address] ABO/RH GROUP TESTon 06-21-20 21 ABO TYPE O [facility] Comment on above: Performed By: #### U ARFX #### [place] [address] RH TYPE Negative [facility] Comment on above: Performed By: #### U ARFX #### [place] [address] Operative Reports - [facility] Operative Reports - [address] [place] [address] Patient Name: PAUL. Trena CARR : 1960 Date of Service: 06/21/2021 Patient Location: [place] [address] Patient Type: O Surgeon: Sal Richardson MD [...] anterior plate instrumentation. SURGEON: Sal Richardson MD FISHER CLAM(S): Ad Valdivia MD, chief resident. ANESTHESIA: ESTIMATED [...] current moratorium due to short staffing at [facility]. The patient agreed to have [...] posi (more content not included)... Normal [facility] Order Reconciliationon 06-21 Order Reconciliation [...] a day (more content not included)... [facility] Order Reconciliation Page 1 Admission Reconciliation Document Reconciliation Type: Admission requested on behalf of Cheikh August (Resident) done by Cheikh August ( (Resident)) Admission - Reconciliation: 21-Jun-2021 06:37 by: Cheikh August ( (Resident)) Home MedicationsEnteredLast Dose TakenReconciled with current Order Reconciliation Comment/ Additional Information celecoxib 200 mg oral capsule 1 cap(s) oral 2 times a big36-Aug-9269 Reviewed and Held gabapentin 300 mg oral capsule 1 tab(s) oral once a jrl23-Ovv-5929 Reviewed and Held hydroxychloroquine 200 mg oral tablet 1 tab(s) oral 2 times a vpl87-Ewk-6454 Hydroxychloroquine Tablet (PLAQUENIL)DOSE = 200 mg Oral 2 Times a Day hydroxychloroquine 200 mg oral tablet continued as the inpatient order Hydroxychloroquine irbesartan 300 mg oral tablet 1 tab(s) oral once a bbj99-Dxy-2688 Reviewed and Held NIFEdipine 30 mg oral [...] Pantoprazole Vitamin C 1 3 times a czv74-Msc-1397 Reviewed and Held Vitamin D3 1 3 times a ljo97-Ppt-1320 Reviewed and Held Zinc 140 mg (as elemental zinc 50 mg) oral tablet 1 tab(s) oral once a day 21-Jun-2021 Reviewed and Held [facility] Patient Profile - Preop v3on 06-21-2021 Patient Profile - Preop v3 Patient Profile - Preop: Initial Info: Patient DemographicsName: JAY CARR Date: 1960 Address: [address] [place] [address].[address] [place] [address] Primary Phone [phone] How to be AddressedPaul Spoken Language PreferredEnglish Source of Informationpatient Stated Reason for Admissionback surgery Primary Contact Name and NumberTreangeline Carr () [phone] Limitations on Visitors/Phone Callsnone Patient Belongings2 bags in pacu, glasses and phone with pt Medications Brought to [facility]: Weight in kg98.9 kilogram(s) Weight in pyv452 pound(s) Weight Methodactual (measured) Scale Typestanding Height [...] Withspouse Living Arrangementshouse Resource/Environmental Concernsnone Anticipated [place] Services Anticipated at Transitionnone Tobacco Use: Tobacco Useno Pre-op Checklist: Arrival [id number]-6553 Arrival Time06:43 Procedure TypeC5-7 decompression and fusion [...] 21-Jun-2021 06:45 by Maisha Meyer (ALICE) [facility] CORONAVIRUS 2019, SCREEN ASY MPTOMATICon 06-20-2021 SARS-CoV-2 (COVID-19) RNA LU+probe Ql (Unsp spec) Not detected Normal [facility] Comment on above: Result Comment: . [...] patient management decisions. Fact sheet for providers: https://www.fda.gov/media/388261/download Fact sheet for patients: https://www.fda.gov/media/130595/download This test has received FDA Emergency Use Authorization (EUA) and has been verified by [facility] ([facility]). This test is only authorized for the duration of time that circumstances exist to justify the authorization of the emergency use of in vitro diagnostic tests for the detection of SARS-CoV-2 virus and/or diagnosis of COVID-19 infection under section 564(b)(1) of the Act, 21 U.S.C. 360bbb-3(b)(1), unless the authorization is terminated or revoked sooner. [facility] is certified under CLIA-88 as qualified to perform high complexity testing. Testing is performed in the [facility] laboratories located at [address] [place] [address]. Performed By: #### U ARFX #### [address] [place] [address] Covid 19 Resultson 1 SARS-CoV-2 (COVID-19) RNA [...] You may also be contacted by the [facility] to see if any of your close [...] or Naproxen (Aleve) can also be used. Sunp-mec-mnekfys cough and cold medicines can be used according to the instructions on the package. Some jkow-bhg-utpncmm medicines also contain acetaminophen. Make sure you [...] water are not available, use alcohol-based hand appeals assistant. Avoid touching your eyes, nose, and mouth [...] 24 mary (more content not included)... [facility] CORONAVIRUS 2019, SCREEN ASY MPTOMATICon 06-19-2021 Lab Specimen Source Nasal, Nasopharyngeal [facility] Comment on above: Performed By: #### U ARFX #### [facility] [address] [place] [address] BASIC METABOLIC PANELon 05-24 Anion gap [Moles/Vol] 14 mmol/L Normal 10 - 20 [facility] Comment on above: Performed By: #### B MP #### [facility] [address] [place] [address] Calcium [Mass/Vol] 9.0 mg/dL Normal 8.6 - 10.6 [facility] Comment on above: Performed By: #### B MP #### [facility] [address] [place] [address] Chloride [Moles/Vol] 105 mmol/L Normal 98 - 107 [facility] Comment on above: Performed By: #### B MP #### [facility] [address] [place] [address] Creatinine [Mass/Vol] 0.85 mg/dL Normal 0.50 - 1.30 [facility] Comment on above: Performed By: #### B MP #### [facility] [address] [place] [address] GFR- AM. >60 Normal >60 [facility] Comment on above: Result Comment: CALC ULATIONS OF ESTIMATED GFR ARE PERFORMED USING THE MDRD STUDY EQUATION FOR THE IDMS-TRACEABLE CREATININE METHODS. CLIN CHEM 2007;53:766-72 Performed By: #### B MP #### [facility] [address] [place] [address] GFR-NON AM. >60 Normal >60 [facility] Comment on above: Performed By: #### B MP #### [facility] [address] [place] [address] Glucose [Mass/Vol] 87 mg/dL Normal 74 - 99 [facility] Comment on above: Performed By: #### B MP #### [facility] [address] [place] [address] HCO3 (Bld) [Moles/Vol] 27 mmol/L Normal 21 - 32 [facility] Comment on above: Performed By: #### B MP #### [facility] [address] [place] [address] Potassium [Moles/Vol] 4.7 mmol/L Normal 3.5 - 5.3 [facility] Comment on above: Performed By: #### B MP #### [facility] [address] [place] [address] Sodium [Moles/Vol] 141 mmol/L Normal 136 - 145 [facility] Comment on above: Performed By: #### B MP #### [facility] [address] [place] [address] Urea nitrogen [Mass/Vol] 19 mg/dL Normal 6 - 23 [facility] Comment on above: Performed By: #### B MP #### [facility] [address] [place] [address] CBCon 06-02-2021 Erythrocyte distribution width (RBC) [Ratio] 12.4 % Normal 11.5 - 14.5 [facility] Comment on above: Performed By: #### U A #### [facility] [address] [place] [address] Hematocrit (Bld) [Volume fraction] 43.6 % Normal 41.0 - 52.0 [facility] Comment on above: Performed By: #### U A #### [facility] [address] [place] [address] Hemoglobin (Bld) [Mass/Vol] 14.8 g/dL Normal 13.5 - 17.5 [facility] Comment on above: Performed By: #### U A #### [facility] [address] [place] [address] MCHC (RBC) [Mass/Vol] 33.9 g/dL Normal 32.0 - 36.0 [facility] Comment on above: Performed By: #### U A #### [facility] [address] [place] [address] MCV (RBC) [Entitic vol] 93 fL Normal 80 - 100 [facility] Comment on above: Performed By: #### U A #### [facility] [address] [place] [address] NUCLEATED RBC 0.0 /100 WBC Normal 0.0-0.0 [facility] Comment on above: Performed By: #### U A #### [facility] [address] [place] [address] Platelets (Bld) [#/Vol] 295 10*3/uL Normal 150 - 450 [facility] Comment on above: Performed By: #### U A #### [facility] [address] [place] [address] RBC 4.69 x10E12/L Normal 4.50 - 5.90 [facility] Comment on above: Performed By: #### U A #### [facility] [address] [place] [address] WBC (Bld) [#/Vol] 8.5 10*3/uL Normal 4.4 - 11.3 [facility] Comment on above: Performed By: #### U A #### [facility] [address] [place] [address] COAGULATION SCREENon 021 aPTT Coag (Bld) [Time] 31 s Normal 26 - 39 [facility] Comment on above: Result Comment: Note new reference range as of 05/23/2021 at 10:00am. Performed By: #### U A #### [facility] [address] [place] [address] PT Coag (PPP) [Time] 12.2 s Normal 9.8 - 13.4 [facility] Comment on above: Result Comment: Note new reference range as of 05/23/2021 at 10:00am. Performed By: #### U A #### [facility] [address] [place] [address] PT, INR 1.1 Normal 0.9 - 1.1 [facility] Comment on above: Performed By: #### U A #### [facility] [address] [place] [address] Laboratory - Blood bankon ABO group Nom [...] SCREEN PATIENT: JAY CARR LOCATION: [facility] STOLL#: [id number] : 62 AGE: SEX: M ORDERED BY: SAL RICHARDSON SOURCE: ANTERIOR NARES COLLECTED: 06/02/21 10:59 ANTIBIOTICS AT BRAEDEN.: RECEIVED : 06/02/21 13:35 SITE: Nasal R E S U L T S STAPH/MRSA SCREEN FINAL 06/04/21 07:50 NO Staphylococcus aureus ISOLATED. Normal [facility] Comment on above: Performed By: #### S TAPH #### [facility] [address] [place] [address] TH CHEST 2 VIEW PA AND LATon 06-02-2021 TH CHEST 2 VIEW PA AND LAT Patient Name: JAY CARR STUDY: TH CHEST 2 VIEW PA AND LAT; 06/02/2021 11:10 am INDICATION: covid follow up . COMPARISON: None. ACCESSION NUMBER(S): [id number] ORDERING CLINICIAN: SAL RICHARDSON FINDINGS: PA and [...] as stated. This study was interpreted at [place], [place]. Electronically signed by: RANJIT GONZALES MD Normal [facility] TYPE + SCREENon 06-02-2021 ABO TYPE O Normal [facility] Comment on above: Performed By: #### U A #### [facility] [address] [place] [address] RH TYPE Negative Normal [facility] Comment on above: Performed By: #### U A #### [facility] [address] [place] [address] UA MICROSCOPICon 06-02-2021 CA OXALATE CRYSTAL 3+ /HPF Abnormal [facility] Comment on above: Performed By: #### U A #### [facility] [address] [place] [address] Mucus Ql (Urine sed) 4+ /LPF Normal [facility] Comment on above: Performed By: #### U A #### [facility] [address] [place] [address] RBC 11 /HPF Abnormal 0-5 [facility] Comment on above: Performed By: #### U A #### [facility] [address] [place] [address] SQUAMOUS EPITH. CELLS 1 /HPF Normal [facility] Comment on above: Performed By: #### U A #### [facility] [address] [place] [address] WBC 1 /HPF Normal 0-5 [facility] Comment on above: Performed By: #### U A #### [facility] [address] [place] [address] URINALYSIS WITH CULTURE IF I NDICATEDon 06-02-2021 Appearance (U) HAZY Normal CLEAR [facility] Comment on above: Performed By: #### U A #### [facility] [address] [place] [address] Bilirubin Ql (U) Negative Normal NEGATIVE [facility] Comment on above: Performed By: #### U A #### [facility] [address] [place] [address] Color (U) YELLOW Normal STRAW,YELL OW [facility] Comment on above: Performed By: #### U A #### [facility] [address] [place] [address] Glucose Ql (U) Negative Normal NEGATIVE [facility] Comment on above: Performed By: #### U A #### [facility] [address] [place] [address] Hemoglobin Ql (U) Negative Normal NEGATIVE [facility] Comment on above: Performed By: #### U A #### [facility] [address] [place] [address] Ketones Ql (U) Negative Normal NEGATIVE [facility] Comment on above: Performed By: #### U A #### [facility] [address] [place] [address] Leukocyte esterase Test strip Ql (U) Negative Normal NEGATIVE [facility] Comment on above: Performed By: #### U A #### [facility] [address] [place] [address] Nitrite Ql (U) Negative Normal NEGATIVE [facility] Comment on above: Performed By: #### U A #### [facility] [address] [place] [address] pH (U) 5.0 [pH] Normal 5.0 - 8.0 [facility] Comment on above: Performed By: #### U A #### [facility] [address] [place] [address] Protein Ql (U) 100 (2+) Abnormal NEGATIVE [facility] Comment on above: Performed By: #### U A #### [facility] [address] [place] [address] Specific gravity (U) [Rel density] 1.026 Normal 1.005 - 1.035 [facility] Comment on above: Performed By: #### U A #### [facility] [address] [place] [address] Urobilinogen (U) [Mass/Vol] mg/dL Normal 0.0 - 1.9 [facility] Comment on above: Performed By: #### U A #### [facility] [address] [place] [address] Color (U) YELLOW See Below [facility] [...] 05-23-2021 Lab Specimen Source Nasal, Nasopharyngeal Normal [facility] Comment on above: Order Comment: TEST CORONAVIRUS 2019, SCREEN ASYMPTOMATIC WAS CANCELLED, 07/05/2021 13:31 ptdid not have test done.. Performed By: #### U ARFX #### [facility] [address] [place] [address] Tobacco Screening.on 021 Fall risk assessment a) [...] COMPARISON: Lumbosacral spine radiographs 02/09/2021 ACCESSION NUMBER(S): [id number] ORDERING CLINICIAN: TONJA GERARDO TECHNIQUE: Sagittal and [...] degenerative disc height loss at L2-L3 with yjtg-[id number] height loss at L1-L2. Conus: The lower [...] right, without spinal canal stenosis. There is hbcp-sw-dchzaeva right and mild left neural foraminal narrowing. [...] as stated. This study was interpreted at [facility], [place], [place]. Electronically signed by: STEVE YANG MD Normal [facility] No Panel Informationon 02-09 Normal [facility] Work Phone: Please click on the link to view the study images [facility] Work Phone: SPINE, LUMBOSACRAL; MIN 4 EWSon 02-09-2021 SPINE, LUMBOSACRAL; MIN 4 VIEWS Patient Name: JAY CARR STUDY: Lumbar Spine, 4 views. INDICATION: Low back pain COMPARISON: None. ACCESSION NUMBER(S): [id number] ORDERING CLINICIAN: TONJA GERARDO FINDINGS: Grade 1 [...] Electronically signed by: JOSE GOEL MD Normal [facility] MRI L-Ext Joint w/o Contrast LTon [...] formation. No other focal left hip abnormality. [facility] thanks you for the opportunity to care for your patient. Workstation ID: [id number] FINAL REPORT Dictated By: Batsheva Brown MD 01/12/2021 08:43 Assigned Physician: Batsheva Brown MD Reviewed and Electronically Signed By: Batsheva Brown MD 01/12/2021 09:09 Transcribed by: CAROLINA 01/12/2021 08:43 Technologist: AMANDA Normal [facility] Basic metabolic 2000 panelon 11-10-2020 Calcium [Mass/Vol] 9.5 mg/dL Normal 8.5-10.6 [facility] Chloride [Moles/Vol] 104 mmol/L Normal 98-107 [facility] CO2 [Moles/Vol] 28 mmol/L Normal 21-32 [facility] Creatinine [Mass/Vol] 0.85 mg/dL Normal 0.55-1.02 [facility]na [facility] Glucose [Mass/Vol] 112 mg/dL High 70-99 [facility] Potassium [Moles/Vol] 4.2 mmol/L Normal 3.5-5.1 Lianna [facility] Sodium [Moles/Vol] 142 mmol/L Normal 136-145 [facility] Urea nitrogen (BldV) [Mass/Vol] 20 mg/dL High 7.0-18.0 [facility] Urea nitrogen/Creatinine [Mass ratio] 24 mg/mg Normal [facility] CBC W Auto Differential pane l (Bld)on 11-10-2020 Basophils (Bld) [#/Vol] 0.0 thou/mcL Normal 0.0-0.2 [facility] Basophils/100 WBC (Bld) 0.5 % Normal 0-3 [facility] Differential cell count method Nom (Bld) AUTOMATED DIFFERENTIAL Normal Mo [facility] Eosinophils (Bld) [#/Vol] 0.1 thou/mcL Normal 0.0-0.4 [facility] Eosinophils/100 WBC (Bld) 0.9 % Normal 0-7 [facility] Erythrocyte distribution width (RBC) [Entitic vol] 13.0 % Normal 11.7-15.0 [facility] Hematocrit (Bld) [Volume fraction] 43.4 % Normal 34.0-50.0 [facility] Hemoglobin (Bld) [Mass/Vol] 15.0 g/dL Normal 11.5-17.0 [facility] Lymphocytes (Bld) [#/Vol] 1.0 thou/mcL Normal 0.7-4.5 [facility] Lymphocytes/100 WBC (Bld) 15.6 % Normal 14-46 [facility] MCH (RBC) [Entitic mass] 32.5 Picograms Normal 27.0-34.0 [facility] MCHC (RBC) [Mass/Vol] 34.6 g/dL Normal 32.0-36.0 Lianna [facility] MCV (RBC) [Entitic vol] 94.0 fL Normal 80-98 [facility] Monocytes (Bld) [#/Vol] 0.6 thou/mcL Normal 0.1-1.0 [facility] Monocytes/100 WBC (Bld) 9.8 % Normal 4-13 [facility] Neutrophils (Bld) [#/Vol] 4.7 thou/mcL Normal 1.5-7.8 [facility] Neutrophils/100 WBC (Bld) 73.2 % Normal 40-74 [facility] Platelet mean volume (Bld) [Entitic vol] 9.4 fL Normal 7.5-11.2 [facility] Platelets (Bld) [#/Vol] 220 thou/mcL Normal 140-415 [facility] RBC (Bld) [#/Vol] 4.62 x(10)6/mcL Normal 3.80-5.60 Mo [facility] WBC (Bld) [#/Vol] 6.5 thou/mcL Normal 4.0-10.5 [facility] PT Coag (PPP) [Time]on 11-10 INR Coag (Bld) [Relative time] 0.9 {INR} Normal [facility] Comment on above: Result Comment: ENRRIQUE GRIMES THE INDUCTION PHASE OF ORAL ANTICOAGULATION, THE INR MAY NOT REFLECT THE ANTICOAGULANT STATUS OF THE PATIENT. THERAPEUTIC RANGES FOR INR'S ARE: MOST CLINICAL SITUATIONS: INR 2.0-3.0 MECHANICAL PROSTHETIC VALVES: INR 2.5-3.5 CRITICAL: INR 5.0 Prothrombin Timeon PT Coag (PPP) [Time] 12.6 s Normal 11.9-14.6 [facility] aPTT Coag (Bld) [Time]on aPTT Coag (PPP) [Time] 38.6 s High 23.2-34.6 Mo [facility] Vital Signs Date Time Vital Sign Value Performing Clinician Facility 02-02-2025 10:52-0400 Body height 175.3 cm Theresa Lange NP Work Phone: [facility] 02-02-2025 10:52-0400 Body mass index (BMI) [Ratio] 33.23 kg/m2 Theresa Paystrup FRONT END DEVELOPER Work Phone: [facility] 02-02-2025 10:52-0400 Body weight 102.06 kg Theresa Paystrup FRONT END DEVELOPER Work Phone: [facility] 02-02-2025 10:52-0400 Diastolic blood pressure 71 mm[Hg] Theresa Paystrup FRONT END DEVELOPER Work Phone: [facility] 02-02-2025 10:52-0400 Systolic blood pressure 134 mm[Hg] Theresa Paystrup FRONT END DEVELOPER Work Phone: [facility] 04-13-2024 09:42-0400 Blood Pressure Location Shun [facility]medical [facility] 04-13-2024 09:42-0400 Body temperature 98.6 [degF] Shun [facility] 04-13-2024 09:42-0400 Diastolic blood pressure 88 mm[Hg] Shun COOK [facility] 04-13-2024 09:42-0400 Heart rate 78 /min Shun COOK [facility] 04-13-2024 09:42-0400 Respiratory rate 16 /min Shun COOK [facility] 04-13-2024 09:42-0400 Systolic blood pressure 137 mm[Hg] Shun COOK [facility] 04-08-2023 10:38-0400 Blood Pressure Location Shun [facility] 04-08-2023 10:38-0400 Diastolic blood pressure 82 mm[Hg] Shun COOK [facility] 04-08-2023 10:38-0400 Heart rate 71 /min Shun MACHADO [facility] 04-08-2023 10:38-0400 Systolic blood pressure 154 mm[Hg] Shun COOK [facility] 10-16-2022 14:18-0400 Blood Pressure Location Shun MACHADO [facility] 10-16-2022 14:18-0400 Diastolic blood pressure 94 mm[Hg] Shun COOK [facility] 10-16-2022 14:18-0400 Heart rate 72 /min Shun MACHADO [facility] 10-16-2022 14:18-0400 Systolic blood pressure 186 mm[Hg] Shun MACHADO [facility] 10-02-2022 13:36-0400 Blood Pressure Location Arely YESSYL [facility] 10-02-2022 13:36-0400 Diastolic blood pressure 80 mm[Hg] Arely NILL [facility] 10-02-2022 13:36-0400 Heart rate 76 /min Arely NILL [facility] 10-02-2022 13:36-0400 Respiratory rate 16 /min Arely NILL [facility] 10-02-2022 13:36-0400 Systolic blood pressure 144 mm[Hg] Arely NILL [facility] 02-15-2022 14:19-0400 Diastolic blood pressure 95 mm[Hg] MD Dania Armstrong Work Phone: [facility] 02-15-2022 14:19-0400 Heart rate 66 /min MD Dania Armstrong Work Phone: [facility] 02-15-2022 14:19-0400 Respiratory rate 16 /min MD Dania Armstrong Work Phone: [facility] 02-15-2022 14:19-0400 SaO2% (BldA) [Mass fraction] 99 % MD Dania Armstrong Work Phone: [facility] 02-15-2022 14:19-0400 Systolic blood pressure 170 mm[Hg] MD Dania Armstrong Work Phone: [facility] 02-15-2022 13:04-0400 Inhaled oxygen flow rate 6 L/min MD Dania Armstrong Work Phone: [facility] 02-15-2022 12:00-0400 Body weight 42 mg MD Dnaia Armstrong Work Phone: [facility] 02-15-2022 10:03-0400 Body height 175.26 cm MD Dania Armstrong Work Phone: [facility] 02-15-2022 10:03-0400 Body mass index (BMI) [Ratio] 31.3 kg/m2 MD Dania Armstrong Work Phone: [facility] 02-15-2022 10:03-0400 Body weight 96.16 kg MD Dania Armstrong Work Phone: [facility] 02-15-2022 07:29-0400 Body temperature 98.8 [degF] MD Dania Armstrong Work Phone: [facility] 01-24-2022 13:59-0400 Blood Pressure Location Arely LOGAN [facility] 01-24-2022 13:59-0400 Diastolic blood pressure 74 mm[Hg] Arely LOGAN [facility] 01-24-2022 13:59-0400 Heart rate 72 /min Arely KRISHNAMURTHYL [facility] 01-24-2022 13:59-0400 Respiratory rate 16 /min Arely KRISHNAMURTHYL [facility] 01-24-2022 13:59-0400 Systolic blood pressure 140 mm[Hg] Arely NILL [facility] 01-19-2022 16:45-0400 Diastolic blood pressure 84 mm[Hg] MD Dania Armstrong Work Phone: [facility] 01-19-2022 16:45-0400 Heart rate 70 /min MD Dania Armstrong Work Phone: [facility] 01-19-2022 16:45-0400 Respiratory rate 16 /min MD Dania Armstrong Work Phone: [facility] 01-19-2022 16:45-0400 SaO2% (BldA) [Mass fraction] 98 % MD Dania Armstrong Work Phone: [facility] 01-19-2022 16:45-0400 Systolic blood pressure 148 mm[Hg] MD Dania Armstrong Work Phone: [facility] 01-19-2022 15:04-0400 Body height 177.8 cm MD Dania Armstrong Work Phone: [facility] 01-19-2022 15:04-0400 Body mass index (BMI) [Ratio] 31.2 kg/m2 MD Dania Armstrong Work Phone: [facility] 01-19-2022 15:04-0400 Body weight 98.8 kg MD Dania Armstrong Work Phone: [facility] 01-19-2022 14:24-0400 Body temperature 98.6 [degF] MD Dania Armstrong Work Phone: [facility] 09-27-2021 09:44-0400 Body temperature 97.88 [degF] Dania Hoy Other Phone: [facility] 09-27-2021 09:44-0400 Diastolic blood pressure 74 mm[Hg] Dania Hoy Other Phone: [facility] 09-27-2021 09:44-0400 Heart rate 89 /min Dania Hoy Other Phone: [facility] 09-27-2021 09:44-0400 Respiratory rate 18 /min Dania Hoy Other Phone: [facility] 09-27-2021 09:44-0400 SaO2% (BldA) [Mass fraction] 94 % Dania Hoy Other Phone: [facility] 09-27-2021 09:44-0400 Systolic blood pressure 149 mm[Hg] Dania Hoy Other Phone: [facility] 03-16-2021 08:34-0400 Body weight 101.86 kg No PCP None [facility] Work Phone: 03-16-2021 08:34-0400 Diastolic blood pressure 90 mm[Hg] No PCP None [facility] Work Phone: 03-16-2021 08:34-0400 Heart rate 80 /min No PCP None [facility] Work Phone: 03-16-2021 08:34-0400 Respiratory rate 17 /min No PCP None [facility] Work Phone: 03-16-2021 08:34-0400 Systolic blood pressure 166 mm[Hg] No PCP None [facility] Work Phone: Encounters Encounter Date Encounter Type Care Provider Facility Start: 04-19-2025 ambulatory Shun MACHADO Facility :[facility] Start: 03-01-2025 End: 03-01-2025 Patient encounter procedure Sabrina Manriquez FRONT END DEVELOPER-[facility] [address] Work Phone: Start: 03-01-2025 End: 03-01-2025 ambulatory Dania Armstrong MD Work Phone: [facility] Work Phone: Start: 02-02-2025 End: 02-02-2025 Bamboo flowsheet Theresa Paystrup FRONT END DEVELOPER Work Phone: [facility] Start: 02-02-2025 End: 02-02-2025 Bamboo flowsheet Theresa Paystrup FRONT END DEVELOPER Work Phone: [facility] Start: 02-02-2025 End: 02-02-2025 Office outpatient new 45 minutes Theresa Paystrup FRONT END DEVELOPER Work Phone: [facility] Comment on above: Arthritis of right s houlder (Primary Dx); Pre-op exam; Raynaud's disease without gangrene; Age related osteoporosis, unspecified pathological fracture presence ; Primary hypertension ; Lupus erythematosus, unspecified form Start: 02-02-2025 End: 02-02-2025 Preprocedural examination done Theresa Paystrup FRONT END DEVELOPER Work Phone: [facility] Work Phone: Start: 02-02-2025 End: 02-02-2025 ambulatory THERESA PAYSTRUP Not Available Start: 01-05-2025 End: 01-05-2025 Clinisync Result Encounter Brennen Sam MD Work Phone: [facility] Unsolicited Start: 01-05-2025 End: 01-05-2025 Clinisync Result Encounter Brennen Sam MD Work Phone: [facility] Unsolicited Start: 10-13-2024 End: 10-13-2024 Patient encounter procedure Dania Armstrong MD Work Phone: [facility] [address] Work Phone: Start: 10-13-2024 End: 10-13-2024 ambulatory Dania Armstrong MD Work Phone: [facility] Work Phone: Start: 07-14-2024 End: 07-14-2024 Encounter identifier Fidel Narayan Work Phone: [facility] [place] Start: 07-14-2024 ambulatory Fidel Narayan [facility] Start: 04-13-2024 End: 04-13-2024 ambulatory Shun MACHADO Facility:[facility] Start: 04-13-2024 End: 04-13-2024 Patient encounter procedure Shun MACHADO [facility] Start: 03-04-2024 End: 03-04-2024 ambulatory MD Dania Armstrong Work Phone: [facility] Work Phone: Start: 03-04-2024 End: 03-04-2024 Patient encounter procedure MD Dania Armstrong Work Phone: [facility] [address] Work Phone: Start: 12-27-2023 Non-patient / Non-visit MD Brittani Armstrong Work Phone: [facility] Work Phone: Start: 11-19-2023 End: 11-19-2023 ambulatory MD Dania Armstrong Work Phone: [facility] Work Phone: Start: 11-19-2023 End: 11-19-2023 Patient encounter procedure MD Dania Armstrong Work Phone: [facility] [address] Work Phone: Start: 09-19-2023 End: 09-19-2023 Office outpatient visit 15 minutes Fidel Narayan Work Phone: [facility] Start: 07-18-2023 End: 07-18-2023 ambulatory MD Dania Armstrong Work Phone: [facility] Work Phone: Start: 07-18-2023 End: 07-18-2023 Patient encounter procedure MD Dania Armstrong Work Phone: [facility] [address] Work Phone: Start: 07-05-2023 End: 07-05-2023 Office outpatient new 30 minutes Fidel M Sylvain Work Phone: [facility] Start: 04-08-2023 End: 04-08-2023 Patient encounter procedure Shun MACHADO [facility] Start: 03-12-2023 End: 03-12-2023 ambulatory ANTWAN SORIANO Facility:[facility] Start: 02-19-2023 End: 02-19-2023 ambulatory MD Dania Armstrong Work Phone: [facility] Work Phone: Start: 02-19-2023 End: 02-19-2023 Patient encounter procedure MD Dania Armstrong Work Phone: [facility] [address] Work Phone: Start: 10-16-2022 End: 10-16-2022 Patient encounter procedure Shun MACHADO [facility] Start: 10-15-2022 End: 10-15-2022 ambulatory MD Dania Armstrong Work Phone: [facility] Work Phone: Start: 10-15-2022 End: 10-15-2022 Patient encounter procedure MD Dania Armstrong Work Phone: [facility] [address] Work Phone: Start: 10-02-2022 End: 10-02-2022 Patient encounter procedure Arely LOGAN [facility] Start: 09-11-2022 End: 09-11-[address] DANIA ARMSTRONG . Facility:[facility] Start: 09-05-2022 ambulatory JENI SAEED Faci lity:[facility] Start: 08-31-2022 End: 09-01-[address] ARELY LOGAN . Facility:[facility] Start: 08-27-2022 Chart Update Dania Armstrong Work Phone: [facility] Work Phone: Start: 08-16-2022 End: 08-17-2022 ambulatory WADE NELSON Facility:[facility] Start: 07-19-2022 End: 07-20-2022 ambulatory WADE NELSON Facility:[facility] Start: 07-06-2022 End: 07-07-[address] DANIA ARMSTRONG . Facility:[facility] Start: 06-19-2022 Encounter for preprocedural laboratory examination JENI SAEED [facility] Start: 06-07-2022 End: 06-08-[address] DANIA ARMSTRONG . Facility:[facility] Start: 06-04-2022 End: 06-05-[address] DANIA ARMSTRONG . Facility:[facility] Start: 06-04-2022 End: 06-05-2022 Encounter for preprocedural laboratory examination DR DANIA ARMSTRONG . Facility:[facility] Start: 05-31-2022 Encounter for preprocedural cardiovascular examination JENI SAEED [facility] Start: 05-25-2022 End: 05-26-2022 ambulatory JENI SAEED Facility:[facility] Start: 05-25-2022 End: 05-26-2022 Encounter for preprocedural cardiovascular examination JENI SAEED Facility:[facility] Start: 05-23-[address] DANIA ARMSTRONG . Facili ty:[facility] Start: 05-23-2022 End: 05-23-2022 ambulatory MD Dania Armstrong Work Phone: [facility] Work Phone: Start: 05-23-2022 End: 05-23-2022 Patient encounter procedure MD Dania Armstrong Work Phone: [facility] [address] Start: 05-02-2022 ambulatory Mr. Kenton Lawson Fa cility:[facility] Start: 05-02-2022 Office outpatient vi sit 25 minutes Dania Armstrong Work Phone: [facility] DO Work Phone: Start: 03-30-2022 Encounter for genera l adult medical examination without abnormal findings DR DANIA ARMSTRONG . [facility] Start: 03-28-2022 End: 03-29-[address] DANIA ARMSTRONG . Facility:[facility] Start: 03-28-2022 End: 03-29-2022 Encounter for general adult medical examination without abnormal findings DR DANIA ARMSTRONG . Facility:[facility] Start: 02-15-2022 End: 02-15-2022 Admission to same day surgery center MD Dania Armstrong Work Phone: [facility] [place] Start: 02-14-2022 End: 02-15-2022 ambulatory JENI Albrecht EDISONNOEMI Facility:[facility] Start: 02-13-2022 End: 02-13-2022 Patient encounter procedure MD Dania Armstrong Work Phone: [facility] Start: 01-30-2022 End: 01-30-2022 Patient encounter procedure Shun MACHADO [facility] Start: 01-29-2022 End: 01-30-[address] DANIA ARMSTRONG . Facility:[facility] Start: 01-29-2022 ambulatory Dania Armstrong Fac ility:[facility] Start: 01-29-2022 Office outpatient vi sit 15 minutes Dania Armstrong Work Phone: OF-Dpjagffkdkhy-Dnrpial 5FL DO Work Phone: Start: 01-29-2022 ambulatory Mr. Kenton Lawson Fa cility:[id number] Start: 01-24-2022 End: 01-24-2022 Patient encounter procedure Arely LOGAN General Surgery Nill/Biju Schultz Start: 01-19-2022 End: 01-19-2022 Admission to same day surgery center MD Dania Armstrong Work Phone: [facility] [place] Start: 01-17-2022 End: 01-17-2022 Patient encounter procedure MD Dania Armstrong Work Phone: [facility]Pre[facility]Surgical Testing Start: 01-11-2022 End: 01-12-[address] SHUN MACHADO Facility:H1 Start: 01-09-2022 End: 01-09-[address] LAURY ZEPEDA Facility:H1 Start: 01-05-2022 End: 01-06-[address] DANIA ARMSTRONG . Facility:H1 Start: 12-27-2021 End: 12-28-[address] DANIA ARMSTRONG . Facility:H1 Start: 12-09-2021 End: 12-10-[address] DANIA ARMSTRONG . Facility:H1 Start: 11-09-2021 Chart Update Dania Armstrong Work Phone: GY-Retcsaqjvbwo-Otdywo 210 Work Phone: Start: 11-08-2021 Postop follow up vis it related to original px Dania Armstrong Work Phone: TK-Jqqrrtzbqium-Xbhtzln 5FL DO Work Phone: Start: 11-08-2021 POV, Provider: Kenton Lawson, Status: Pen, Time: 11:00 AM Dania Armstrong Work Phone: XF-Unzdslhioqye-Dydgyu 210 Work Phone: Start: 11-08-2021 ambulatory Dania Armstrong Fac ility:[facility] Start: 11-07-2021 AUDIT Dania Armstrong Work Phone: WY-Utbfnofantlh-Ulgoli 210 Work Phone: Start: 09-26-2021 End: 09-27-2021 Evaluation and management of inpatient Sal Richardson PERRI Umana [id number] Rm [id number] Start: 09-19-2021 AUDIT Dania Armstrong Work Phone: SN-Gigcujloiqrnwj-Zlu for Perioperative Med Work Phone: Start: 09-19-2021 ambulatory Dania Rivera ility:[facility] Start: 09-19-2021 Encounter for blood typing Dr. SAL R[facility] Start: 09-19-2021 Encounter for preprocedural laboratory examination Dr. SAL RICHARDSON [facility] Start: 08-23-2021 Office outpatient vi sit 40 minutes Dania Armstrong Work Phone: UT-Jyadodbfnbjc-Obqnnvm ng-Moravian Work Phone: Start: 08-23-2021 ambulatory Dania Rivera ility:[facility] Start: 08-03-2021 Office outpatient vi sit 25 minutes Dania Armstrong Work Phone: EX-Jvfnziazxpju-Dfyowj 210 Work Phone: Start: 08-03-2021 ambulatory Referral Self Facility: [id number] Start: 06-21-2021 End: 06-21-2021 ambulatory Dania Armstrnog Facility:[facility] Start: 06-02-2021 AUDIT No PCP None [facility] for Perioperative Med Work Phone: Start: 06-02-[address] SAL RICHARDSON Facility:[facility] Start: 06-02-[address] SAL RICHARDSON Facility:[facility] Start: 06-02-2021 Encounter for other preprocedural examination Dr. SAL RICHARDSON [facility] Start: 06-02-2021 Encounter for preprocedural cardiovascular examination Dr. SAL RICHARDSON [facility] Start: 05-03-2021 Office outpatient vi sit 40 minutes No PCP None YJ-Xyxpbuethdsh-Jjlisrh ng-[facility] Work Phone: Start: 03-16-2021 NPV, Provider: Nazario Holloway, Status: Pen, Time: 8:30 AM No PCP None [facility] Work Phone: Start: 03-16-2021 Office outpatient ne w 30 minutes No PCP None [facility] Work Phone: Start: 03-16-2021 Patient encounter procedure No PCP None [facility] Work Phone: Start: 03-13-2021 Office consultation new/estab patient 80 min No PCP None [facility] Work Phone: Start: 03-10-2021 Chart Update No PCP None [facility]Orthopa ed[facility]-[place] 210 Work Phone: Start: 03-06-2021 Telephone encounter No PCP None [facility] Work Phone: Start: 02-12-2021 Chart Update No PCP None [facility] 210 Work Phone: Start: 02-09-2021 Office outpatient ne w 45 minutes No PCP None SX-Gmfxanaqaysm-Qmuauv 210 Work Phone: Start: 02-08-2021 AUDIT No [...] Comment on above: Performed By: #### P [facility] #### [facility] [address] [place] [address] Dr. Carolyn King Start: 02-15-2022 Cystoscopy MD [...] Performed By: #### T +S #### [facility] [address] [address] [place] [id number] Start: 06-02-[address] ASIA RICHARDSON Comment on above: Performed By: #### U A #### [facility] [address] [place] [address] Start: 09-05-2016 Colonoscopy Brennen schofield MD Work Phone: Arthroplasty of knee Arely LOGAN Colonoscopy Arely LOGAN Excision of cervical intervertebral disc Arely NILL Excision of melanoma Arely NILL Fusion of lateral jeff mbar interbody Arely NILL Fusion of tarsal joints Ricardo yancey NILL Plan of Treatment Date Care Activity Detail Author Start: 09-05-2026 Screening for malign ant neoplasm of colon [facility] Start: 03-01-2025 Hemolytic complement CH50 level [facility] Start: 02-22-2025 Influenza vaccination Influenza Vacc ine (#1) [facility] Start: 02-02-2025 End: 02-02-2025 Patient encounter procedure 02/02/2025 11:30 AM EDT Consult [facility] [address] [place] [address] Theresa Lange, JANETTE [address] [place] [address] Arthritis of right shoulder (Primary Dx); Pre-op exam; Raynaud's disease without gangrene; Age related osteoporosis, unspecified pathological fracture presence ; Primary hypertension [facility] Comment on above: Arthritis of right s houlder (Primary Dx); Pre-op exam; Raynaud's disease without gangrene; Age related osteoporosis, unspecified pathological fracture presence ; Primary hypertension Start: 01-29-2025 End: 01-29-2026 CBC W Auto Differential panel - Blood CBC and differential Lab Routine Pre-op exam Expected: 01/29/2025 (Approximate), Expires: 01/29/2026 [facility] Work Phone: Comment on above: Expected: 01/29/2025 (Approximate), Expires: 01/29/2026 Start: 01-29-2025 End: 01-29-2026 Comprehensive metabolic 2000 panel - Serum or Plasma Comprehensive metabolic panel Lab Routine Pre-op exam Expected: 01/29/2025 (Approximate), Expires: 01/29/2026 [facility] Comment on above: Expected: 01/29/2025 (Approximate), Expires: 01/29/2026 Start: 10-13-2024 Hemolytic complement CH50 level [facility] Start: 03-04-2024 Hemolytic complement CH50 level [facility] Start: 11-19-2023 Hemolytic complement CH50 level [facility] Start: 07-18-2023 Hemolytic complement CH50 level [facility] Start: 02-19-2023 Hemolytic complement CH50 level [facility] Start: 10-15-2022 Hemolytic complement CH50 level [facility] Start: 09-26-2022 FUV, Provider: Kenton Lawson, Status: Pen, Time: 9:30 AM FUV, Provider: Kenton Lawson, Status: Pen, Time: 9:30 AM DG-Qycjusmhklfu-Wlmhec l 5FL DO Work Phone: Start: 05-23-2022 Hemolytic complement CH50 level [facility] Start: 05-02-2022 FUV, Provider: Kenton Lawson, Status: Pen, Time: 9:00 AM FUV, Provider: Kenton Lawson, Status: Pen, Time: 9:00 AM RH-Yrmhvmnfmufp-Ikqcuy l 5FL DO Work Phone: Start: 02-15-2022 End: 02-15-2022 [facility] Work Phone: Start: 02-15-2022 Cystoscopy OR Cysto/Retro/Stent/Stone /Holmium Laser (Right) [facility] Start: 02-15-2022 Diagnostic radiograp hy of abdomen XR KUB [facility] Start: 02-15-2022 End: 02-15-2022 Admission to same day surgery center Departed Surgical Day Care [facility] [place] Start: 02-13-2022 End: 02-13-2022 Patient encounter procedure Departed Clinical [facility] Oxt-Pbj-Irfgiycs Testing Start: 01-19-2022 End: 01-19-2022 [facility] Work Phone: Start: 01-15-2022 FUV, Provider: Kenton Lawson, Status: Pen, Time: 10:00 AM FUV, Provider: Kenton Lawson, Status: Pablo, Time: 10:00 AM EW-Suijmgzlhaqw-Lmztsp l 5FL DO Work Phone: Start: 11-08-2021 Patient encounter procedure [facility] Orthopedics [facility] Start: 09-27-2021 End: 09-28-2022 Sodium Chloride 0.9% Injectable Flush Peripheral Line ; via Peripheral LineVolume = 10 mL IntraVenous Flush Every 8 Hours and as Needed Start: 27-Sep-2021 End: 27-Sep-2022 Ordered: 27-Sep-2021 [facility] Start: 09-27-2021 End: 09-28-2022 oxyCODONE Immediate Release 10 mg Oral Tablet Every 4 Hours ; Tablet (OXYIR, ROXICODONE)DOSE = 10 mg Oral Every 4 Hours, PRN Pain - Severe (7-10) Start: 27-Sep-2021 End: 27-Sep-2022 Ordered: 27-Sep-2021 [facility] Start: 09-26-2021 End: 09-27-2022 [facility] Comment on above: [employer] Infusion an d notify H.O. immediately Start: 09-26-2021 [facility], Provider: Sal Richardson, Status: Pablo, Time: 7:30 AM [facility], Provider: Sal Richardson, Status: Pablo, Time: 7:30 AM ME-Nhdwbcnltzdpiu-Kwp for Perioperative Med Work Phone: Start: 08-30-2021 FUV, Provider: Sal Richardson, Status: Pablo, Time: 11:15 AM FUV, Provider: Sal Richardson, Status: Pablo, Time: 11:15 AM BR-Fiijqziqyumy-Bvzpbo 210 Work Phone: Start: 08-30-2021 FUV, Provider: Sal Richardson, Status: Pablo, Time: 11:00 AM FUV, Provider: Sal Richardson, Status: Pablo, Time: 11:00 AM TU-Pokidzgvdfwg-Qtijjw 210 Work Phone: Start: 06-09-2021 [facility], Provider: Sal Richardson, Status: Pen, Time: 7:30 AM [facility], Provider: Sal Richardson, Status: Pen, Time: 7:30 AM TP-Qzlcvtvfupezen-Ruh for Perioperative Med Work Phone: Start: 03-22-2021 [facility], Provider: Nazario Holloway, Status: Pen, Time: 9:40 AM [facility], Provider: Nazario Holloway, Status: Pen, Time: 9:40 AM [facility] Work Phone: Start: 03-13-2021 [facility], Provider: Sal Richardson, Status: Pen, Time: 2:15 PM FUV, Provider: Sal Richardson, Status: Pen, Time: 2:15 PM ZS-Ijbgomiumkry-Ishwbg 210 Work Phone: Start: 1961 Skin Cancer Screening Skin Cancer Sc reening [facility] Start: 1960 Medicare Annual Wellness (AWV) Medicare Annual Wellness (AWV) [facility] Start: 1960 Screening for malign ant neoplasm of colon [facility] Complement C3 [Mass/volume] in Serum or Plasma [facility] Work Phone: Complement C3 [Mass/volume] in Serum or Plasma [facility] Complement C3 [Mass/volume] in Serum or Plasma [facility] Complement C3 [Mass/volume] in Serum or Plasma [facility] Complement C3 [Mass/volume] in Serum or Plasma [facility] Complement C3 [Mass/volume] in Serum or Plasma [facility] Complement C4 [Mass/volume] in Serum or Plasma [facility] Work Phone: Complement C4 [Mass/volume] in Serum or Plasma [facility] Complement C4 [Mass/volume] in Serum or Plasma [facility] Complement C4 [Mass/volume] in Serum or Plasma [facility] Complement C4 [Mass/volume] in Serum or Plasma [facility] Complement C4 [Mass/volume] in Serum or Plasma [facility] ECG 12 lead ECG 12 lead ECG Routine Pre-op exam 02/02/2025 11:01 AM EDT [facility] Hemolytic complement CH50 level [facility] Work Phone: Patient referral [facility] Work Phone: Immunizations Immunization Date Immunization Notes Care Provider Fa cili 04-12-2023 Influenza, injectabl e, Madin Charissa Canine Kidney, preservative free, quadrivalent Theresa [employer]str[employer] FRONT END DEVELOPER Work Phone: [facility] 04-12-2023 influenza virus vaccine, unspecified formulation Theresa [employer]strup FRONT END DEVELOPER Work Phone: [facility] 03-27-2022 influenza virus vaccine, unspecified formulation Arely LOGAN [facility] [place] 03-27-2022 Influenza, injectabl e, Madin [place] Canine Kidney, preservative free, quadrivalent Theresa [employer]strup FRONT END DEVELOPER Work Phone: [facility] 11-21-2021 SARS-CoV-2 mRNA (egvrywmbqmu-hiyl-mywi ose) vaccine Arely DOREEN [facility] [place] 09-22-2021 SARS-CoV-2 (COVID-19 ) mRNA BNT-162b2 vax Arely DOREEN [facility] [place] 06-26-2021 Pfizer-BioNTech COVID-19 Vacc 30 MCG/0.3ML Intramuscular Suspension Dania Armsrtong Work Phone: [facility] 05-01-2021 influenza virus vaccine, unspecified formulation Shun MACHADO [facility] 05-01-2021 Influenza, injectabl e, Madin Charissa Canine Kidney, preservative free, quadrivalent Dania Armstrong Work Phone: HG-Orhljlmorlhu-Euw man 210 Work Phone: 10-06-2020 Pfizer-BioNTech COVID-19 Vacc 30 MCG/0.3ML Intramuscular Suspension No PCP None [facility] 09-13-2020 Pfizer-BioNTech COVID-19 Vacc 30 MCG/0.3ML Intramuscular Suspension No PCP None [facility] 06-24-2020 SARS-CoV-2 (COVID-19 ) mRNA BNT-162b2 vax Arely LOGAN [facility] [place] 05-04-2020 influenza virus vaccine, unspecified formulation Shun MACHADO [facility] 05-04-2020 Influenza, injectabl e, Madin Charissa Canine Kidney, preservative free, quadrivalent No PCP None OF-Rwhimwkxkjpi-Ssi man 210 Work Phone: 05-04-2020 pneumococcal conjuga te vaccine, 13 valent No PCP None [facility] 04-06-2020 influenza virus vaccine, unspecified formulation Shun MACHADO [facility] 04-06-2020 influenza, seasonal, injectable No PCP None PJ-Ygefxxtpgcyt-Xxx man 210 Work Phone: 10-25-2011 hepatitis A vaccine, adult dosage No PCP None [facility] 10-25-2011 hepatitis B vaccine, pediatric or pediatric/adolescent dosage No PCP None [facility] 03-30-2011 hepatitis A vaccine, adult dosage No PCP None [facility] 03-30-2011 hepatitis B vaccine, pediatric or pediatric/adolescent dosage No PCP None [facility] 02-15-2011 hepatitis B vaccine, pediatric or pediatric/adolescent dosage No PCP None [facility] 01-20-1998 hepatitis B vaccine, adult dosage No PCP None [facility] 02-24-1997 hepatitis B vaccine, adult dosage No PCP None [facility] 11-11-1996 hepatitis B vaccine, adult dosage No PCP None [facility] 11-02-1996 TD(adult) unspecifie d formulation; Translations: [Td(adult) unspecified formulation] No PCP None [facility] NEGATED: Highlighted row has not occurred!04-15-2019 influenza virus vaccine, unspecified formulation Arely LOGAN [facility] [place] Payers Date Payer Category Payer Self-pay [id number] 2022 Medicaid [employer] MEDICARE A DVANTAGE [id number] 2022 Medicare [id number] 1960 Unknown [id number] 2.840.1.194511.3.579.2.356 1961 Unknown [id number] 2.16840.1.191582.3.579.2.356 1961 Unknown [id number] 2.16840.1.257993.3.579.2.356 1961 Unknown [id number] 2.16840.1.441880.3.579.2.356 1961 Unknown [id number] 2.16840.1.553843.3.579.2.356 1961 Unknown [id number] 2.16840.1.390982.3.579.2.356 1961 Unknown [id number] 2.16.840.1.088017.3.579.2.356 1961 Unknown [id number] 2.16.840.1.631596.3.579.2.356 1961 Unknown [id number] 2.16.840.1.799750.3.579.2.356 1961 Unknown [id number] 2.16.840.1.735021.3.579.2.356 1961 Unknown [id number] 2.16.840.1.775290.3.579.2.356 1961 Unknown [id number] 2.16.840.1.020055.3.579.2.356 1961 Unknown [id number] 2.16.840.1.492206.3.579.2.356 1961 Unknown [id number] 2.16.840.1.714597.3.579.2.356 1961 Unknown [id number] 2.16.840.1.529079.3.579.2.593 1961 Unknown [id number] 2.16.840.1.607368.3.579.2.593 1961 Unknown [id number] 2.16.840.1.681904.3.579.2.593 1961 Unknown [id number] 2.16.840.1.775948.3.579.2.593 1961 Unknown [id number] 2.16.840.1.025222.3.579.2.593 1961 Unknown [id number] 2.16.840.1.769152.3.579.2.593 1961 Unknown [id number] 2.16.840.1.197943.3.579.2.593 1961 Unknown [id number] 2.16.840.1.394704.3.579.2.593 1961 Unknown [id number] 2.16.840.1.732960.3.579.2.593 1961 Unknown [id number] 2.16.840.1.785654.3.579.2.593 1961 Unknown [id number] 2.16.840.1.380979.3.579.2.593 1961 Unknown [id number] 2.16.840.1.877607.3.579.2.593 1961 Unknown [id number] 2.16.840.1.813278.3.579.2.593 1961 Unknown [id number] 2.16.840.1.584413.3.579.2.593 1961 Unknown [id number] 2.16.840.1.552486.3.579.2.593 1961 Unknown [id number] 2.16.840.1.879063.3.579.2.593 1961 Unknown [id number] 2.16.840.1.213056.3.579.2.593 1961 Unknown [id number] 2.16.840.1.303176.3.579.2.593 1961 Unknown [id number] 2.16.840.1.918309.3.579.2.593 1961 Unknown [id number] 2.16.840.1.758498.3.579.2.1314 1961 Unknown [id number] 2.16.840.1.239410.3.579.2.1259 1961 Unknown [id number] 2.16.840.1.579079.3.579.2.727 1961 Unknown [id number] 2.16.840.1.428790.3.579.2.727 1959 Unknown [id number] 1959 Unknown [id number] Unknown Unknown MMO [id number] Unknown [id number] Unknown [employer] [id number] Unknown [id number] 2.16.840.1.361470.3.579.2.531 Unknown [id number] 2.16.840.1.411599.3.579.2.531 Social History Date Type Detail Facility [facility] Start: 07-14-2024 Tobacco smoking consumption unknown [facility] Start: 01-24-2022 End: 02-15-2022 Tobacco smoking status Never smoked tobacco (finding) [facility] Work Phone: Tobacco smoking status Never [facility] [place] Start: 02-02-2025 Sex Assigned At Male [facility] Start: 1960 Sex Assigned At Male [facility] Start: 07-14-2024 Alcohol intake Alcohol Use Details [facility] Start: 10-17-2022 Sexual Orientation Choose not to disclose [facility] Start: 10-14-2024 Sex Male (finding) [facility] Start: 1960 Sex assigned at Not on file [facility] Start: 02-02-2025 Tobacco use and exposure Smokeless tobacco non-user [facility] Start: 02-02-2025 Alcoholic beverage intake Ex-drinker (finding) [facility] Start: 02-02-2025 History of Social function [facility] Medical Equipment Procedure Code Equipment Code Equipment Origin al Text Equipment Identifier Dates Cystoscopy, with ureteral calculus manipulation and stent placement Polymeric ureteral stent ([id number] FDA Start: 02-15-2022 Cystoscopy, with ureteral calculus manipulation and stent placement Polymeric ureteral stent [id number] FDA Start: 01-19-2022 Goals Date Patient Goal Desired Activity /State Functional Status Date Assessment Result Facility 02-02-2025 Patient Health Quest ionnaire 2 item (PHQ-2) [Reported] [facility] 04-13-2024 Functional Status N/A [facility] 04-08-2023 Functional Status N/A [facility] 10-16-2022 Functional Status N/A [facility] 10-02-2022 Functional Status N/A General Thacker gabrielle Schultz 01-30-2022 Functional Status N/A [facility] 01-24-2022 Functional Status N/A General Thacker gabrielle Schultz Functional observable [facility] Mental Status Date Assessment Result Facility 09-26-2021 Cognitive functions 27-Sep-19 2212:26 [facility] Clinical Notes 10-31-2020 to 04-13-2024 Note [...] include: ?8 oz (237 mL) of milk, vrdxsiy-dayrzhquibrx-wfkju milk, and calcium-fortifiedfruit juice. Calcium-fortified means that [...] ?Spinach (cooked), rhubarb, beets, sweet potatoes, and Singaporean chard. ?Peanuts. ?Potato chips, kittitian fries, and baked potatoes with skin on. ?Nuts and nut products. ?Chocolate. If you regularly take a diuretic medicine, make sure to eat at least 1 or 2 servings of fruits or vegetables that are high in potassium each day. These include: ?Avocado. ?Banana. ?Tecate, prune, carrot, or tomato juice. ?Baked potato. [...] magnesium, fish oil, or vitamin B6. Take kggu-ixj-cyyzsrv and prescription medicines only as told by [...] Casseroles. Pizza. Lasagna. Frozen meals. Potato chips. Angolan fries. The items listed above may not [...] provider. Document Revised: 09/20/2022 Document Reviewed: 09/20/2022 [employer] Patient Education 2023 [employer] Follow Up Care 04/08/2023 11:14:40 With:CHRIS RIVERA, Shun Mirza, URL Address: Josy ERNST [address] [address]- When: Unknown [facility] Maddy 04-13-2024 Note Patient Education Nephrology Dietary [...] ? 8 oz (237 mL) of milk, ptqqjwp-ynwqgczsfuwx-ofpkz milk, and calcium-fortifiedfruit juice. Calcium-fortified means that [...] Spinach (cooked), rhubarb, beets, sweet potatoes, and Singaporean chard. ? Peanuts. ? Potato chips, kittitian fries, and baked potatoes with skin on. ? Nuts and nut products. ? Chocolate. ? If you regularly take a diuretic medicine, make sure to eat at least 1 or 2 servings of fruits or vegetables that are high in potassium each day. These include: ? Avocado. ? Banana. ? Tecate, prune, carrot, or tomato juice. ? Baked [...] fish oil, or vitamin B6. ? Take daph-ipp-kvcahae and prescription medicines only as told by your health care provider. These include suppleme (more content not included)... [facility] 09-19-2023 History of Presen t illness Narrative Encounter Date Shoulder Knee [facility] Work Phone: [phone] 678-327310-16-2023 Hospital Discharge instructions Patient Education 04/08/2023 11:15:31 [...] include: ?8 oz (237 mL) of milk, beuuval-xnsuhkeayztu-hyhwo milk, and calcium- fortifiedfruit juice. Calcium-fortified means [...] ?Spinach (cooked), rhubarb, beets, sweet potatoes, and Singaporean chard. ?Peanuts. ?Potato chips, kittitian fries, and baked potatoes with skin on. ?Nuts and nut products. ?Chocolate. If you regularly take a diuretic medicine, make sure to eat at least 1 or 2 servings of fruits or vegetables that are high in potassium each day. These include: ?Avocado. ?Banana. ?Tecate, prune, carrot, or tomato juice. ?Baked potato. [...] magnesium, fish oil, or vitamin B6. Take lqib-xzn-vrbgevq and prescription medicines only as told by [...] Casseroles. Pizza. Lasagna. Frozen meals. Potato chips. Angolan fries. The items listed above may not [...] provider. Document Revised: 02/19/2022 Document Reviewed: 02/19/2022 [employer] Patient Education 2022 [employer]. Follow Up Care 10/16/2022 15:04:55 With:CHRIS RIVERA, Shun Mirza, URL Address: [address] [place], [place] [address]- When: Unknown [facility] Maddy [id number] NoteHNO ID: [id number] Author: Antwan Soriano MD Service: ? Author [...] next visit: No PCP: Dania Armstrong MD [facility]5 [facility] [address] FELLOW / RESIDENT: No fellow or resident assisted in this office visit. Antwan Soriano, [facility]04-25-2023 Hospital Discharge instructions Patient Education 10/16/2022 13:00:41 [...] include: ?8 oz (237 mL) of milk, fsjizac-euxjttygvhbf-vthsk milk, and calcium- fortifiedfruit juice. Calcium-fortified means [...] ?Spinach (cooked), rhubarb, beets, sweet potatoes, and Singaporean chard. ?Peanuts. ?Potato chips, kittitian fries, and baked potatoes with skin on. ?Nuts and nut products. ?Chocolate. If you regularly take a diuretic medicine, make sure to eat at least 1 or 2 servings of fruits or vegetables that are high in potassium each day. These include: ?Avocado. ?Banana. ?Tecate, prune, carrot, or tomato juice. ?Baked potato. [...] magnesium, fish oil, or vitamin B6. Take frkv-owg-figspux and prescription medicines only as told by [...] Casseroles. Pizza. Lasagna. Frozen meals. Potato chips. Angolan fries. The items listed above may not [...] provider. Document Revised: 02/19/2022 Document Reviewed: 02/19/2022 [employer] Patient Education 2022 Trigence. Follow Up Care 02/19/2022 10:35:10 With:CHRIS RIVERA, Shun Mirza, URL Address: [address] [facility] [address] [place], [place] [id number]- When: Unknown [facility] Maddy [id number] NotePROCEDURE: XR FOOT RT MIN 3 VIEWS [...] Electronically authenticated by: LAURY ZEPEDA Date: 2022-08-16 18:55[facility]01-26-2023 NotePROCEDURE: XR FOOT RT MIN 3 [...] Electronically authenticated by: LAURY ZEPEDA Date: 2022-07-19 12:30[facility]01-13-2023 NotePROCEDURE: XR FOOT RT MIN 3 [...] Electronically authenticated by: LAURY ZEPEDA Date: 2022-07-06 15:41[facility]12-15-2022 NotePROCEDURE: XR ANKLE RT MIN 3 [...] Electronically authenticated by: BANDAR SAENZ Date: 2022-06-07 14:32[facility]12-15-2022 NotePROCEDURE: XR ANKLE RT MIN 3 [...] Electronically authenticated by: BANDAR SAENZ Date: 2022-06-07 14:32[facility]08-09-2022 Hospital Discharge instructions Patient Education 01/30/2022 [...] include: ?Spinach. ?Rhubarb. ?Beets. ?Potato chips and kittitian fries. ?Nuts. If you regularly take a diuretic medicine, make sure to eat at least 1 2 fruits or vegetables high in potassium each day. These include: ?Avocado. ?Banana. ?Tecate, prune, carrot, or tomato juice. ?Baked potato. [...] Casseroles. Pizza. Lasagna. Frozen meals. Potato chips. Angolan fries. Summary You can reduce your risk [...] 10/05/2011 Document Revised: 09/30/2019 Document Reviewed: 05/21/2017 [employer] Patient Education 2020 Trigence. Follow Up Care 01/24/2022 12:02:31 With:CHRIS RIVERA, Shun Mirza, URL Address: [facility] [employer] [address] [place], [place] [id number]- When: Unknown [facility] Maddy [id number] NoteSend Summary: Discharge Summary Providers: Provider RoleProvider Name Sal Perez Nicholas PrimaryHoy, Douglas M Note Recipients: Dania Armstrong MD - [id number] [] Discharge: Summary: Admission Date: .26-Sep-2021 06:01:00 [...] floor. 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 AT [facility] [address] [facility] 5TH FLOOR ON 10/18/2021 AT [...] ANTONIO REMOVED IN 3 WKS. AT [facility] [address] [facility] 5TH FLOOR ON 10/18/2021 AT [...] to Schedule in: 6 weeks, PLEASE CALL [phone] TO SCHEDULE YOUR APPOINTMENT FOR 5-6 WEEKS FOLLOWING YOUR SURGERY. Location: [facility] [address] [facility] [address] [facility] [address], Phone Number: Office: (September,/[place]) - [phone] Discharge Medications: Home Medication NIFEdipine 30 mg [...] 1-2 tab(s) orally every (more content not included)...[facility] NoteRehab: Info: Mode of Treatmentoccupational therapy; co-evaluation with PT for pt safety and to optimize pt's therapeutic potential Time IN10:00 Time OUT10:27 Total Treatment Nppleef76 Patient in ... at end of sessionchair; alarm on Communicated with ... at end of sessionbedside nurse Patient Effortexcellent Symptoms Noted During/After Treatmentnone Patient Profile Reviewedyes Onset of Illness/Injury or Date of [id number] Reason for ReferralXLIF L3/4, 4/5;2. Navigated percutaneous [...] WFL Mobility/Tone: Bed Mobility Assessment/Interventionssupine to sit Cyfnsm-fc-Ajz [place] (Bed Mobility)standby assist; verbal cues Assistive Device (Bed Mobility)bed rails Comment, Bed MobilityVia log rolling technique Transfer Assessment/Interventionssit to stand transfer; stand to sit transfer Sit-Stand [place] (Transfers)standby assist; verbal cues Sit-Stand Assistive Device (Transfers)no AD Stand-Sit [place] (Transfers)standby assist; verbal cues Stand-Sit Assistive Device (Transfers)no AD Safety Issues Impacting Function (Mobility)insight into deficits/self awareness Impairments Impacting Function (Mobility)balance; pain ActivityPt completed functional household distance with SBA for safety (pt declined use of device) ADL: BADL Assessment/Interventionlower body dressing; grooming; toileting [place] Level (Lower Body Dressing)pants/bottoms; moderate assist (50% patient effort) Position (Lower Body Dressing)edge-of-bed sitting [place] Level (Grooming)supervision Position (Grooming)standing Comment (Grooming)Standing oral care at sink [place] Level (Toileting)supervision Position (Toileting)standing Motor: Sitting, Static (Balance)good balance Sitting, Dynamic (Balance)good balance Qzz-kg-Ydgty (Balance)fair balance Standing, Static (Balance)fair balance Standing, [...] Total Score17 Short Term Goals: Transfer: Established [id number] Transfer: Transfer Type Npgcron-gh-btuug/yamme-jc-qdj; (more content not included)...[facility] NotePost Operative Note: PreOp Diagnosis: Lumbar stenosis, spondylolisthesis L3-5 Post-Procedure Diagnosis: Lumbar stenosis, spondylolisthesis L3-5 Procedure: ALIF via extreme lateral approach L3/4, L4/5 with cage x 2 PSF with instrumentation L3-5 Surgeon: Dr. Richardson Resident/Fellow/Other [employer] Instructor: Renny Steinberg Estimated Blood Loss (mL): 150 [...] Completion Last Updated: 04-Oct-2021 15:17 by Sal Richardson)[facility] 09-26-2021 History of Present illness Narrative* Jay is a pleasant 62-year-old caegv-mpkt-ofrpacby male who presents today with his for [...] not corrected for spelling or grammatical errors. DY-Ekqznjcwgszn-Eioknrl 5FL DO Work Phone: 1(237) 593-212704-05-2022 NoteHistory of Present Illness: History Present Illness: [...] the note. I personally evaluated the patient [id number] Electronic Signatures: Sal Richardson) (Signed 29-Sep-2021 11:39) Authored: Note Completion Co-Signer: History of Present Illness, Allergies, Home Medication Review, Impression/Procedure, ERAS, Physical Exam, Consent, Note Completion Timothy Steinberg (Resident)) (Signed 26-Sep-2021 05:59) Authored: History of Present Illness, Allergies, Home Medication Review, Impression/Procedure, ERAS, Physical Exam, Consent, Note Completion Last Updated: 29-Sep-2021 11:39 by Sal Richardson)[facility] 08-25-2021 Reason for referral (narrative)* Reason for Referral: XLIF L3/4, 4/5;2. 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 Richardson Resident/Fellow/Other Wastewater Treatment Plant Instructor: Skip/ Katalina Procedure: anterior cervical discectomy/ decompression, [...] Completion Last Updated: 27-Jun-2021 14:14 by Sal Richardson)[facility] 06-21-2021 NoteHistory & Physical Reviewed: I [...] the note. I personally evaluated the patient [id number] Electronic Signatures: Sal Richardson) (Signed 27-Jun-2021 13:45) Authored: Note Completion Co-Signer: History & Physical Reviewed, ERAS, Consent, Note Completion Cheikh August (Resident)) (Signed 21-Jun-2021 06:23) Authored: History & Physical Reviewed, ERAS, Consent, Note Completion Last Updated: 27-Jun-2021 13:45 by Sal Richardson)[facility] 12-22-2020 History of Present illness Narrative* [...] these results he will follow-up with Dr. Richardsno. * This note was dictated using speech recognition software and was not corrected for spelling or grammatical errors * . ZV-Zipydhhbvwzt-Mesvvx [address] Work Phone: 1(838) 415-365005-10-2021 History of Present illness Ikokraqgb75 yr old male with back pain. 10/[facility] Work Phone: 1(886) 161-500405-10-2021 History of Present illness Narrative* 60 yr [...] foot surgeries and total knee replacement. [facility] Work Phone: consult note* Clinical Note Date No Information [facility] Work Phone: Discharge summary* Clinical Note Date No Information [facility] Work Phone: Evaluation + Plan note Future Appointments Appointment Date:01/30/2022 09:15:00 AM Scheduled Provider:Shun MACHADO MD Location:[facility] Appointment Type:URO Office Visit Appointment Date:07/31/2022 02:00:00 PM Scheduled Provider:[facility] LOGAN [facility]:[place] [address] [facility] [place] Evaluation + Plan note Future Appointments Appointment Date:07/31/2022 02:00:00 PM Scheduled Provider:Arely LOGAN MD Location: [place] Appointment Type:[place] [address] [facility] Evaluation + Plan note Future Appointments Appointment Date:10/16/2022 02:15:00 PM Scheduled Provider:Shun MACHADO MD Location:[facility] Appointment Type:URO Office Visit Future Scheduled Tests Radiology* XR Abdomen 1 View 02/19/22 [facility] [place] Evaluation + Plan note Future Appointments Appointment Date:02/22/2023 10:45:00 AM Scheduled Provider:Shun MACHADO MD Location:[facility] Appointment Type:URO Office Visit Future Scheduled Tests Radiology* XR Abdomen 1 View 02/19/22 [facility] Evaluation + Plan note Future Appointments Appointment Date:04/13/2024 09:15:00 AM Scheduled Provider:Shun MACHADO MD Location:[facility] Appointment Type:URO Office Visit [facility] evaluation + Plan note Future Appointments Appointment Date:04/12/2025 08:15:00 AM Scheduled Provider:Shun MACHADO MD Location:[facility] Appointment Type:URO Office Visit [facility] evaluation note* Neurological: alert and oriented t1Icmxlrvhixuijnc: Spine Exam:Dressings CDINo bruising, swelling, or erythemaL1: [...] appearing, no acute distress resting in bed [facility] assessment information available [facility] Work Phone: Evaluation note* Type Assessment Date No Information [facility] Work Phone: Evaluation note* Diagnosis Arthritis of right shoulder- Primary Pre-op exam Raynaud's disease without gangrene Age related osteoporosis, unspecified pathological fracture presence Primary hypertension Unspecified essential hypertension Lupus erythematosus, unspecified form documented in this encounter [facility]* Clinical Note Date No Information [facility] Work Phone: History of Present illness Narrative* [...] not corrected for spelling or grammatical errors. EN-Lonohjvvqjzs-Wkwyxlk 5FL DO Work Phone: Hospital course Narrative No data available for this section [facility] Discharge instructions* Activity:activity as tolerated and [...] PLEASE HAVE ANTONIO REMOVED IN 3WKS. AT [facility] [address] [facility] 5TH FLOOR ON 10/18/2021 AT 0930 WITH [facility] SANTIAGO.REHAB FACILITIES OR HOME CARE MAY REMOVE ANTONIO OR SUTURES. * Wound Care 2:Wound Site: BACK (Lumbar Spine)Wound Type: surgical incisionChange Dressing: dailyCleanse With: soap and waterCover With: abdominal dressingTape With: paper tapeInstructions: no lotions,creams, or tub soaksOther Instructions: PLEASE HAVE ANTONIO REMOVED IN 3 WKS. AT [facility] [address] [facility] 5TH FLOOR ON 10/18/2021 AT [...] to Schedule in: 6 weeks, PLEASE CALL [phone] TO SCHEDULE YOUR APPOINTMENT FOR 5-6 WEEKS FOLLOWING YOUR SURGERY.[address]: [address] 5TH FLOOR OR [address] [place] [address]/ [facility] [address], [phone] Number: Office: (September,./[place]) - [phone]: Please Call Emmei Gallagher RN at [phone] For Any Post-Op Questions [facility] No data available for this section [facility] Instructions* Date Instruction Additional Infor mation No Information [facility] [employer] [facility] Work Phone: Progress note No data available for this section [facility] [place] Progress note* Clinical Note Date No Information [facility] Work Phone: Reockx for referral (narrative)* Reason For Referral No Information [facility] Work Phone: Rekhnq for referral (narrative)No reason for referral information availableWestern [facility] Hospital Work Phone: Summary Purpose Family History No [...] lives far away, in the [facility]. If he gets better with the injections, perhaps we can watch bmqh-naw-ggm and this is obviously what we are [...] lives far away, in the [facility]. If he gets better with the injections, perhaps we can watch oeuq-axs-thc and this is obviously what we are [...] spine from 04/12/2021 is available from the [facility] on a CD. This shows evidence [...] section and content) DATE CREATED AUTHOR 01/14/2021 [facility] DATE CREATED AUTHOR AUTHOR'S ORGANIZ ATION 03/11/2021 [facility] DATE CREATED AUTHOR AUTHOR'S ORGANIZ ATION 08/06/2021 [facility] DATE CREATED AUTHOR AUTHOR'S ORGANIZ ATION 05/03/2022 [facility] DATE CREATED AUTHOR AUTHOR'S ORGANIZ ATION 05/05/2022 [facility] DATE CREATED AUTHOR AUTHOR'S ORGANIZ ATION 11/30/2022 [facility] DATE CREATED AUTHOR AUTHOR'S ORGANIZ ATION 03/14/2023 [facility] DATE CREATED AUTHOR AUTHOR'S ORGANIZ ATION 07/16/2024 [facility] DATE CREATED AUTHOR AUTHOR'S ORGANIZ ATION 02/03/2025 [facility] DATE CREATED AUTHOR AUTHOR'S ORGANIZ ATION 03/15/2025 [facility] DATE CREATED AUTHOR AUTHOR'S ORGANIZ ATION 03/30/2025 [facility] <item> Privacy Markings (unrecogniz ed [...] (start - stop) Status Members No Information 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 Relationship Specialty Start Date End Date Unallocated, Christina Murray MD [facility] [place] [address] PCP - General Family Medicine 07/08/23 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 [facility]. provides no warranty or guarantee of the accuracy or completeness of information in this document.
--- NOTE | 2025-04-12 15:17 | XR_ITS ---
The [place] [id number] Patient Name: RG SIMEON MRN: [id number] date: 1960 Sex: M Assigned Patient [facility]: [facility] Current Patient Location: LAB Accession/Order Number: [id number] Exam Date: 04/12/2025 15:10 Report Date: 04/12/2025 16:23 At the request of: SHUN PEREZ MD Procedure: XR abdomen 1V SINGLE VIEW ABDOMEN COMPARISON: 04/08/2024 CLINICAL DATA: Follow-up kidney stones. Supine view of the abdomen and pelvis was obtained. There is air and stool within the colon. There are no dilated small bowel loops. The kidneys are partially obscured. No obvious radiopaque renal or ureteral stones are identified. No soft tissue masses are seen. There is slight levoscoliotic curvature as well as postoperative and degenerative changes at the spine. XR/XR abdomen 1V IMPRESSION: NO RADIOPAQUE STONES. Impression dictated by: Helen Irizarry M.D. 04/12/2025 4:23 PM Dictation Location: [place] [address] Electronically authenticated by: [id number] Y Date: 04/12/2025 16:23
== END 2025-04-12 14:34 | disposition home or self-care (01) ==
LOC: RAD 14:45
PROVIDERS: PCP Family Medicine; Visit Provider Urology
DX: Z87.442 Personal history of urinary calculi (principal)
CPT/HCPCS: 74018

== ENCOUNTER 2025-04-12 15:19 | Outpatient (OUT) | payer MEDICARE, SELFPAY ==
--- OUTSIDE RECORDS SUMMARY | 2025-04-12 15:26 | XMS_ITS | CCD ---
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 SAL COLEMAN Attending Unavail able [...] DEBRA, Dr. SAL COLEMAN Referring Unavail able DERBA, Dr. SAL COLEMAN Admitting Unavail able DEBRA, Dr. SAL COLEMAN Attending Unavail able Dania Armstrong Primary Care Unavailable DEBRA, Dr. SAL COLEMAN Attending Unavail able MD Dania Armstrong Primary Care Provider MD Dmitriy De Leon Attending Provider [phone] MD Dania Armstrong Primary Care Provider [phone] MD Dmitriy De Leon Attending Provider [phone] JENI SAEED Admitting Unavailable ZIEBMALIKA, DR [...] Unavailable BROWNBANDAR Consulting Unavailable HOY ., DR VENTRUA Attending Unavailable HOY ., DR VENTURA Consulting [...] Dania Armstrong MD Primary Care Provider Obermeymalika GINGER FARMER-C, Sabrina Langley Attending Provider Unallocated , [place] [...] Allergy to drug (finding) 7 Rash [facility] Work Phone: (7 sources) Penicillin; Translations: [penicillin] Drug Allergy Eruption of skin (disorder) General Surgery [place] (2 sources) oxyCODONE Drug Allergy 1 [facility] (2 sources) Penicillins Drug allergy (disorder) 7 [facility] (2 sources) Penicillins Drug Allergy 7 [facility] (1 source) Penicillins Drug allergy (disorder) 2 [facility] Medications Current Medications Medication [...] for 30 day(s), 120 tab(s), Refill(s) 11, [facility], 170, cm, 10/16/22 14:31:00 EDT, Height/Length [...] activity., # 30 tab(s), Refills(s) 3, Pharmacy: [facility], 170, cm, 10/16/22 14:31:00 EDT, Height/Length [...] 09-27-2021 Episodic Other aftercare (2 sources) Other long-term (current) drug therapy; Translations: [Other long-term (current) drug therapy] Onset: 06-02-2021 Episodic Other [...] ALT [Catalytic activity/Vol] 24 U/L Normal 7-52 [facility] Comment on above: Performed By: #### C 4, CH50, C3 #### [facility] , #### CBC, ADDONUAPLUS, ESR, CMP, CRP #### [facility] [address] [place] [address] [place] Albumin [Mass/volume] in Ser um or Plasma by Bromocresol green (BCG) dye binding methoOrdered By: Sabrina Manriquez on 03-01-2025 Albumin BCG dye [Mass/Vol] 4.1 g/dL 3.5-5.7 [facility] Alkaline phosphatase [Enzyma tic activity/volume] in Serum or PlasmaOrdered By: Sabrina Manriquez on 03-01-2025 ALP [Catalytic activity/Vol] 105 U/L High 34-104 [facility] Comment on above: Performed By: #### C 4, CH50, C3 #### [facility] , #### CBC, ADDONUAPLUS, ESR, CMP, CRP #### [facility] [address] Appearance of UrineOrdered B y: Sabrina Manriquez on 03-01-2025 Appearance (U) Clear Normal Clear [facility] Comment on above: Order Comment: Name Collection Type:: Clean-Voided Midstream Performed By: #### C 4, CH50, C3 #### [facility] , #### CBC, ADDONUAPLUS, ESR, CMP, CRP #### [facility] [address] [place] [address] Aspartate aminotransferase [ Enzymatic activity/volume] in Serum or PlasmaOrdered By: Sabrina Manriquez on 03-01-2025 AST [Catalytic activity/Vol] 21 U/L Normal 13-39 [facility] Comment on above: Performed By: #### C 4, CH50, C3 #### [facility] , #### CBC, ADDONUAPLUS, ESR, CMP, CRP #### [address] Bacteria [Presence] in Urine by AutomatedOrdered By: Sabrina Manriquez on 03-01-2025 Bacteria Auto Ql (U) None seen [HPF] None Seen [facility] Basophils [#/volume] in Bloo d by Automated countOrdered By: Sabrina Manriquez on 03-01-2025 Basophils (Bld) [#/Vol] 0.1 10*3/uL Normal 0.0-0.2 [facility] Comment on above: Performed By: #### C 4, CH50, C3 #### [facility] , #### CBC, CRP, ESR, CMP, ADDONUAPLUS #### [place] [address] [place] Basophils/100 leukocytes in Blood by Automated countOrdered By: Sabrina Manriquez on 03-01-2025 Basophils/100 WBC (Bld) 0.7 % Normal . [facility] Comment on above: Performed By: #### C 4, CH50, C3 #### [facility] , #### CBC, CRP, ESR, CMP, ADDONUAPLUS #### [address] Bilirubin Test strip Ql (U)O rdered By: Sabrina Manriquez on 03-01-2025 Bilirubin Ql (U) Negative Negative [facility] Bilirubin.total [Mass/volume ] in Serum or PlasmaOrdered By: Sabrina Manriquez on 03-01-2025 Bilirubin [Mass/Vol] 0.5 mg/dL Normal 0.3-1.0 [facility] Comment on above: Performed By: #### C 4, CH50, C3 #### [facility] , #### CBC, ADDONUAPLUS, ESR, CMP, CRP #### [facility] [address] [place] [id number] [place] C reactive protein [Mass/vol ume] in Serum or PlasmaOrdered By: Sabrina Manriquez on 03-01-2025 CRP [Mass/Vol] < 0.5 mg/dL 0.0-0.5 [facility] C-Reactive Proteinon 025 CRP [Mass/Vol] mg/L Normal 0.0-0.5 [facility] Comment on above: Result Comment: PERF ORMED BY: [place] [address] PATHOLOGIST SEAFOOD FISHERMAN [place] WAGNER M.D. Performed By: #### C 4, CH50, C3 #### [facility] , #### CBC, CRP, ESR, CMP, ADDONUAPLUS #### [facility] [address] [place] [address] [place] Calcium [Mass/volume] in Ser um or PlasmaOrdered By: Sabrina Manriquez on 03-01-2025 Calcium [Mass/Vol] 9.0 mg/dL Normal 8.6-10.3 [facility] Comment on above: Performed By: #### C 4, CH50, C3 #### [facility] , #### CBC, ADDONUAPLUS, ESR, CMP, CRP #### [facility] [address] [place] [address] [place] Carbon dioxide, total [Moles /volume] in Serum or PlasmaOrdered By: Sabrina Manriquez on 03-01-2025 CO2 [Moles/Vol] 30.1 mmol/L Normal 21.0-31.0 [facility] Comment on above: Performed By: #### C 4, CH50, C3 #### [facility] , #### CBC, ADDONUAPLUS, ESR, CMP, CRP #### [place] [address] [place] Chloride [Moles/volume] in S lenny or PlasmaOrdered By: Sabrina Manriquez on 03-01-2025 Chloride [Moles/Vol] 103 mmol/L Normal 98-107 [facility] Comment on above: Performed By: #### C 4, CH50, C3 #### [facility] , #### CBC, ADDONUAPLUS, ESR, CMP, CRP #### [address] Color of Urine by AutoOrdere d By: Sabrina Manriquez on 03-01-2025 Color (U) Yellow Normal Yellow [facility] Comment on above: Order Comment: Name Collection Type:: Clean-Voided Midstream Performed By: #### C 4, CH50, C3 #### [facility] , #### CBC, ADDONUAPLUS, ESR, CMP, CRP #### [facility] [address] [place] [address] Complement C3on 03-01-2025 Complement C3 160 mg/dL Normal 82-167 [facility] Comment on above: Result Comment: Perf ormed at: - [facility] [address] [id number] [employer] T[employer] Cashier: Derek Toscano PhD, Phone: [phone] Performed By: #### C 4, CH50, C3 #### [facility] , #### CBC, CRP, ESR, CMP, ADDONUAPLUS #### [facility] [address] [place] [address] Complement C4on 03-01-2025 Complement C4 30 mg/dL Normal 12-38 [facility] Comment on above: Result Comment: PERF ORMED BY: [place] [address] PATHOLOGIST SEAFOOD FISHERMAN [place] WAGNER M.D. Performed By: #### C 4, CH50, C3 #### [facility] , #### CBC, CRP, ESR, CMP, ADDONUAPLUS #### [address] Complement Total (CH50)on Complement Total (CH50) 52 Normal >41 [facility] Comment on above: Result [...] determine out of range values. Performed at: [facility] [address] [id number] [employer] Cashier: Derek Toscano PhD, Phone: [phone] PERFORMED BY: [place] [address] PATHOLOGIST SEAFOOD FISHERMAN [place] WAGNER M.D. Performed By: #### C 4, CH50, C3 #### [facility] , #### CBC, CRP, ESR, CMP, ADDONUAPLUS #### [address] Complete Blood Count Auto Di ffon 03-01-2025 Mean Corpuscular HGB Conc 33.7 g/dL Normal 32.5-35.6 [facility] Comment on above: Performed By: #### C 4, CH50, C3 #### [facility] , #### CBC, CRP, ESR, CMP, ADDONUAPLUS #### [address] NRBC% 0.0 /100{WBC} Normal 0-0.5 [facility] Comment on above: Performed By: #### C 4, CH50, C3 #### [facility] , #### CBC, CRP, ESR, CMP, ADDONUAPLUS #### [address] White Blood Count 6.7 [CFU]/mL Normal 4.1-10.5 [facility] Comment on above: Performed By: #### C 4, CH50, C3 #### [facility] , #### CBC, CRP, ESR, CMP, ADDONUAPLUS #### [address] Comprehensive Metabolic Pane tanika 03-01-2025 Albumin [Mass/Vol] 4.1 g/dL Normal 3.5-5.7 [facility] Comment on above: Performed By: #### C 4, CH50, C3 #### [facility] , #### CBC, ADDONUAPLUS, ESR, CMP, CRP #### [address] GFR/1.73 sq M.predicted MDRD (S/P/Bld) [Vol rate/Area] mL/min/{1.73_m2} Normal [facility] Comment on above: Performed By: #### C 4, CH50, C3 #### [facility] , #### CBC, ADDONUAPLUS, ESR, CMP, CRP #### [address] Creatinine [Mass/volume] in Serum or PlasmaOrdered By: Sabrina Manriquez on 03-01-2025 Creatinine [Mass/Vol] 0.89 mg/dL Normal 0.70-1.30 [facility] Comment on above: Performed By: #### C 4, CH50, C3 #### [facility] , #### CBC, ADDONUAPLUS, ESR, CMP, CRP #### [address] Dipstick and Microscopicon 0 03-01-2025 Bacteria,Urine None Seen Normal None Seen [facility] Comment on above: Order Comment: Name Collection Type:: Clean-Voided Midstream Performed By: #### C 4, CH50, C3 #### [facility] , #### CBC, ADDONUAPLUS, ESR, CMP, CRP #### [address] Bilirubin,Urine Negative Normal Negative [facility] Comment on above: Order Comment: Name Collection Type:: Clean-Voided Midstream Performed By: #### C 4, CH50, C3 #### [facility] , #### CBC, ADDONUAPLUS, ESR, CMP, CRP #### [address] Glucose Ql (U) Normal Normal Normal [facility] Comment on above: Order Comment: Name Collection Type:: Clean-Voided Midstream Performed By: #### C 4, CH50, C3 #### [facility] , #### CBC, ADDONUAPLUS, ESR, CMP, CRP #### [address] Hyaline Casts,Urine None Normal 0-8 [facility] Comment on above: Order Comment: Name Collection Type:: Clean-Voided Midstream Performed By: #### C 4, CH50, C3 #### [facility] , #### CBC, ADDONUAPLUS, ESR, CMP, CRP #### [address] Mucus,Urine 1+ [LPF] Critically abnormal [facility] Comment on above: Order Comment: Name Collection Type:: Clean-Voided Midstream Result Comment: PERF ORMED BY: [place] [address] PATHOLOGIST SEAFOOD FISHERMAN [place] WAGNER M.D. Performed By: #### C 4, CH50, C3 #### [facility] , #### CBC, ADDONUAPLUS, ESR, CMP, CRP #### [address] Nitrite,Urine Negative Normal Negative [facility] Comment on above: Order Comment: Name Collection Type:: Clean-Voided Midstream Performed By: #### C 4, CH50, C3 #### [facility] , #### CBC, ADDONUAPLUS, ESR, CMP, CRP #### [address] Occult Blood,Urine Negative Normal Negative [facility] Comment on above: Order Comment: Name Collection Type:: Clean-Voided Midstream Performed By: #### C 4, CH50, C3 #### [facility] , #### CBC, ADDONUAPLUS, ESR, CMP, CRP #### [address] RBC,Urine 1-2 Normal 0-4 [facility] Comment on above: Order Comment: Name Collection Type:: Clean-Voided Midstream Performed By: #### C 4, CH50, C3 #### [facility] , #### CBC, ADDONUAPLUS, ESR, CMP, CRP #### [address] Specificy [place],Urine 1.021 Normal 1.001-1.03 0 [facility] Comment on above: Order Comment: Name Collection Type:: Clean-Voided Midstream Performed By: #### C 4, CH50, C3 #### [facility] , #### CBC, ADDONUAPLUS, ESR, CMP, CRP #### [address] Urobilinogen,Urine Normal Normal Normal [facility] Comment on above: Order Comment: Name Collection Type:: Clean-Voided Midstream Performed By: #### C 4, CH50, C3 #### [facility] , #### CBC, ADDONUAPLUS, ESR, CMP, CRP #### [place] [address] [place] WBC,Urine 1-2 Normal 0-4 [facility] Comment on above: Order Comment: Name Collection Type:: Clean-Voided Midstream Performed By: #### C 4, CH50, C3 #### [facility] , #### CBC, ADDONUAPLUS, ESR, CMP, CRP #### [address] Eosinophils [#/volume] in Bl ood by Automated countOrdered By: Sabrina Manriquez on 03-01-2025 Eosinophils (Bld) [#/Vol] 0.1 10*3/uL Normal 0.0-0.45 [facility] Comment on above: Performed By: #### C 4, CH50, C3 #### [facility] , #### CBC, CRP, ESR, CMP, ADDONUAPLUS #### [place] [address] [place] Eosinophils/100 leukocytes i n Blood by Automated countOrdered By: Sabrina Manriquez on 03-01-2025 Eosinophils/100 WBC (Bld) 0.7 % Normal . [facility] Comment on above: Performed By: #### C 4, CH50, C3 #### [facility] , #### CBC, CRP, ESR, CMP, ADDONUAPLUS #### [address] Epithelial cells.squamous [# /area] in Urine sediment by Automated countOrdered By: Sabrina Manriquez on 03-01-2025 Epithelial cells.squamous Auto (Urine sed) [#/Area] N/A [facility] Erythrocyte Sedimentation Ra natan 03-01-2025 ESR (Bld) [Velocity] 26 mm/h High 0-19 [facility] Comment on above: Result Comment: PERF ORMED BY: [place] [address] PATHOLOGIST SEAFOOD FISHERMAN [place] WAGNER M.D. Performed By: #### C 4, CH50, C3 #### [facility] , #### CBC, CRP, ESR, CMP, ADDONUAPLUS #### [facility] [address] Erythrocyte distribution wid th [Ratio] by Automated countOrdered By: Sabrina Manriquez on 03-01-2025 Erythrocyte distribution width (RBC) [Ratio] 13.5 % Normal 12.0-14.8 [facility] Comment on above: Performed By: #### C 4, CH50, C3 #### [facility] , #### CBC, CRP, ESR, CMP, ADDONUAPLUS #### [address] Erythrocyte sedimentation ra te by Photometric methodOrdered By: Sabrina Manriquez on 03-01-2025 ESR Photometric method (Bld) [Velocity] 26 mm/hr High 0-19 [facility] Erythrocytes [#/area] in Uri ne sediment by Automated countOrdered By: Sabrina Manriquez on 03-01-2025 RBC Auto (Urine sed) [#/Area] 1-2 [HPF] 0-4 [facility] Erythrocytes [#/volume] in B lood by Automated countOrdered By: Sabrina Manriquez on 03-01-2025 RBC (Bld) [#/Vol] 4.15 10*6/uL Normal 3.90-5.60 [facility] Comment on above: Performed By: #### C 4, CH50, C3 #### [facility] , #### CBC, CRP, ESR, CMP, ADDONUAPLUS #### [address] Glomerular filtration rate [ Volume Rate/Area] in Serum, Plasma or Blood by CreatinineOrdered By: Sabrina Manriquez on 03-01-2025 Glomerular filtration rate [Volume Rate/Area] in Serum, Plasma or Blood by Creatinine > 60.0 mL/Min [facility] Glucose [Mass/volume] in Ser um or PlasmaOrdered By: Sabrina Manriquez on 03-01-2025 Glucose [Mass/Vol] 176 mg/dL High 70-100 [facility] Comment on above: ADA recommended refe rence rangeRandom Glucose Reference Range is dependent on time and content of last meal. Glucose of more than 200 mg/dL in a nonstressed, ambulatory subject supports the diagnosis of Diabetes Mellitus. Result Comment: [place] om Glucose Reference Range is dependent on time and content of last meal. Glucose of more than 200 mg/dL in a nonstressed, ambulatory subject supports the diagnosis of Diabetes Mellitus. ADA recommended reference range Performed By: #### C 4, CH50, C3 #### [facility] , #### CBC, ADDONUAPLUS, ESR, CMP, CRP #### [address] Glucose [Mass/volume] in Uri ne by Test stripOrdered By: Sabrina Manriquez on 03-01-2025 Glucose Test strip (U) [Mass/Vol] Normal mg/dL Normal [facility] Hematocrit [Volume Fraction] of Blood by Automated countOrdered By: Sabrina Manriquez on 03-01-2025 Hematocrit (Bld) [Volume fraction] 39.8 % Normal 38.8-50.0 [facility] Comment on above: Performed By: #### C 4, CH50, C3 #### [facility] , #### CBC, CRP, ESR, CMP, ADDONUAPLUS #### [address] Hemoglobin Test strip Ql (U) Ordered By: Sabrina Manriquez on 03-01-2025 Hemoglobin Ql (U) Negative Negative [facility] Hemoglobin [Mass/volume] in BloodOrdered By: Sabrina Ruizer on 03-01-2025 Hemoglobin (Bld) [Mass/Vol] 13.4 g/dL Normal 13.0-17.0 [facility] Comment on above: Performed By: #### C 4, CH50, C3 #### [facility] , #### CBC, CRP, ESR, CMP, ADDONUAPLUS #### [facility] [address] [place] [address] [place] Hyaline casts [#/area] in Ur ine sediment by Automated countOrdered By: Sabrina Manriquez on 03-01-2025 Hyaline casts Auto (Urine sed) [#/Area] None [LPF] 0-8 [facility] Ketones [Presence] in Urine by Test stripOrdered By: Sabrina Manriquez on 03-01-2025 Ketones Ql (U) Negative Normal Negative [facility] Comment on above: Order Comment: Name Collection Type:: Clean-Voided Midstream Performed By: #### C 4, CH50, C3 #### [facility] , #### CBC, ADDONUAPLUS, ESR, CMP, CRP #### [facility] [address] Leukocyte esterase [Presence ] in Urine by Test stripOrdered By: Sabrina Manriquez on 03-01-2025 Leukocyte esterase Test strip Ql (U) Negative Normal Negative [facility] Comment on above: Order Comment: Name Collection Type:: Clean-Voided Midstream Performed By: #### C 4, CH50, C3 #### [facility] , #### CBC, ADDONUAPLUS, ESR, CMP, CRP #### [facility] [address] [place] [address] [place] Leukocytes [#/area] in Urine sediment by Automated countOrdered By: Sabrina Manriquez on 03-01-2025 WBC Auto (Urine sed) [#/Area] 1-2 [HPF] 0-4 [facility] Leukocytes [#/volume] correc leah for nucleated erythrocytes in Blood by Automated counOrdered By: Sabrina Manriquez on 03-01-2025 WBC corrected for nucl RBC Auto (Bld) [#/Vol] 6.7 10*3/uL 4.1-10.5 [facility] Leukocytes [#/volume] in Blo od by Automated countOrdered By: Sabrina Manriquez on 03-01-2025 WBC (Bld) [#/Vol] 6.7 10*3/uL Normal 4.1-10.5 [facility] Comment on above: Performed By: #### C 4, CH50, C3 #### [facility] , #### CBC, CRP, ESR, CMP, ADDONUAPLUS #### [address] Lymphocytes [#/volume] in Bl ood by Automated countOrdered By: Sabrina Manriquez on 03-01-2025 Lymphocytes (Bld) [#/Vol] 1.0 10*3/uL Normal 1.00-4.8 [facility] Comment on above: Performed By: #### C 4, CH50, C3 #### [facility] , #### CBC, CRP, ESR, CMP, ADDONUAPLUS #### [address] Lymphocytes/100 leukocytes i n Blood by Automated countOrdered By: Sabrina Manriquez on 03-01-2025 Lymphocytes/100 WBC (Bld) 15.1 % Normal . [facility] Comment on above: Performed By: #### C 4, CH50, C3 #### [facility] , #### CBC, CRP, ESR, CMP, ADDONUAPLUS #### [address] MCH [Entitic mass] by Automa leah countOrdered By: Sabrina Manriquez on 03-01-2025 MCH (RBC) [Entitic mass] 32.3 pg Normal 27.5-35.2 [facility] Comment on above: Performed By: #### C 4, CH50, C3 #### [facility] , #### CBC, CRP, ESR, CMP, ADDONUAPLUS #### [address] MCHC Auto (RBC) [Mass/Vol]Or dered By: Sabrina Manriquez on 03-01-2025 MCHC (RBC) [Mass/Vol] 33.7 g/dL 32.5-35.6 [facility] MCV [Entitic volume] by Auto mated countOrdered By: Sabrina Manriquez on 03-01-2025 MCV (RBC) [Entitic vol] 95.9 fL Normal 83.5-101 [facility] Comment on above: Performed By: #### C 4, CH50, C3 #### [facility] , #### CBC, CRP, ESR, CMP, ADDONUAPLUS #### [address] Monocytes [#/volume] in Bloo d by Automated countOrdered By: Sabrina Manriquez on 03-01-2025 Monocytes (Bld) [#/Vol] 0.4 10*3/uL Normal 0.0-0.8 [facility] Comment on above: Performed By: #### C 4, CH50, C3 #### [facility] , #### CBC, CRP, ESR, CMP, ADDONUAPLUS #### [address] Monocytes/100 leukocytes in Blood by Automated countOrdered By: Sabrina Manriquez on 03-01-2025 Monocytes/100 WBC (Bld) 6.0 % Normal . [facility] Comment on above: Performed By: #### C 4, CH50, C3 #### [facility] , #### CBC, CRP, ESR, CMP, ADDONUAPLUS #### [address] Mucus [Presence] in Urine by AutomatedOrdered By: Sabrina Manriquez on 03-01-2025 Mucus Auto Ql (U) 1+ [LPF] Abnormal [facility] Neutrophils [#/volume] in Bl ood by Automated countOrdered By: Sabrina Manriquez on 03-01-2025 Neutrophils (Bld) [#/Vol] 5.2 10*3/uL Normal 1.8-7.7 [facility] Comment on above: Performed By: #### C 4, CH50, C3 #### [facility] , #### CBC, CRP, ESR, CMP, ADDONUAPLUS #### [facility] [address] [place] [address] [place] Neutrophils/100 leukocytes i n Blood by Automated countOrdered By: Sabrina Manriquez on 03-01-2025 Neutrophils/100 WBC (Bld) 77.5 % Normal . [facility] Comment on above: Performed By: #### C 4, CH50, C3 #### [facility] , #### CBC, CRP, ESR, CMP, ADDONUAPLUS #### [facility] [address] Nitrite Test strip Ql (U)Ord ered By: Sabrina Manriquez on 03-01-2025 Nitrite Ql (U) Negative Negative [facility] No Panel InformationOrdered By: Sabrina Manriquez on 03-01-2025 Pharmacy Creatinine Clearance (Chem N/A [facility] Nucleated erythrocytes [Pres ence] in Blood by Automated countOrdered By: Sabrina Manriquez on 03-01-2025 Nucleated RBC Auto Ql (Bld) 0.0 /100{WBC} 0-0.5 [facility] Platelet mean volume [Entiti c volume] in Blood by Automated countOrdered By: Sabrina Manriquez on 03-01-2025 Platelet mean volume (Bld) [Entitic vol] 8.3 fL Normal 6.6-10.1 [facility] Comment on above: Performed By: #### C 4, CH50, C3 #### [facility] , #### CBC, CRP, ESR, CMP, ADDONUAPLUS #### [facility] [address] [place] [address] Platelets [#/volume] in Bloo d by Automated countOrdered By: Sabrina Manriquez on 03-01-2025 Platelets (Bld) [#/Vol] 309 10*3/uL Normal 150-450 [facility] Comment on above: Performed By: #### C 4, CH50, C3 #### [facility] , #### CBC, CRP, ESR, CMP, ADDONUAPLUS #### [facility] [address] [place] [id number] [place] Potassium [Moles/volume] in Serum or PlasmaOrdered By: Sabrina Manriquez on 03-01-2025 Potassium [Moles/Vol] 4.2 mmol/L Normal 3.5-5.1 [facility] Comment on above: Performed By: #### C 4, CH50, C3 #### [facility] , #### CBC, ADDONUAPLUS, ESR, CMP, CRP #### [place] [address] [place] Protein [Mass/volume] in Ser um or PlasmaOrdered By: Sabrina Manriquez on 03-01-2025 Protein [Mass/Vol] 6.7 g/dL Normal 6.4-8.9 [facility] Comment on above: Performed By: #### C 4, CH50, C3 #### [facility] , #### CBC, ADDONUAPLUS, ESR, CMP, CRP #### [place] [id number] [place] Protein [Mass/volume] in Uri ne by Test stripOrdered By: Sabrina Manriquez on 03-01-2025 Protein (U) [Mass/Vol] 20 mg/dL Normal Negative [facility] Comment on above: Order Comment: Name Collection Type:: Clean-Voided Midstream Performed By: #### C 4, CH50, C3 #### [facility] , #### CBC, ADDONUAPLUS, ESR, CMP, CRP #### [address] Serum globulin measurement b y calculation (mass/volume)Ordered By: Sabrina Manriquez on 03-01-2025 Globulin (S) [Mass/Vol] 2.6 g/dL Normal [facility] Comment on above: Performed By: #### C 4, CH50, C3 #### [facility] , #### CBC, ADDONUAPLUS, ESR, CMP, CRP #### [address] Serum or plasma albumin/glob ulin mass ratioOrdered By: Sabrina Manriquez on 03-01-2025 Albumin/Globulin [Mass ratio] 1.6 {ratio} Normal [facility] Comment on above: Performed By: #### C 4, CH50, C3 #### [facility] , #### CBC, ADDONUAPLUS, ESR, CMP, CRP #### [address] Serum or plasma anion gap de terminationOrdered By: Sabrina Manriquez on 03-01-2025 Anion gap [Moles/Vol] 11.1 mmol/L Normal 6.0-15.0 [facility] Comment on above: Performed By: #### C 4, CH50, C3 #### [facility] , #### CBC, ADDONUAPLUS, ESR, CMP, CRP #### [address] Sodium [Moles/volume] in Ser um or PlasmaOrdered By: Sabrina Manriquez on 03-01-2025 Sodium [Moles/Vol] 140 mmol/L Normal 136-145 [facility] Comment on above: Performed By: #### C 4, CH50, C3 #### [facility] , #### CBC, ADDONUAPLUS, ESR, CMP, CRP #### [address] Specific gravity Test strip (U) [Rel density]Ordered By: Sabrina Manriquez on 03-01-2025 Specific gravity (U) [Rel density] 1.021 1.001-1.03 0 [facility] Urea nitrogen [Mass/volume] in Serum or PlasmaOrdered By: Sabrina Manriquez on 03-01-2025 Urea nitrogen [Mass/Vol] 15 mg/dL Normal 7-25 [facility] Comment on above: Performed By: #### C 4, CH50, C3 #### [facility] , #### CBC, ADDONUAPLUS, ESR, CMP, CRP #### [facility] [address] Urobilinogen Test strip (U) [Mass/Vol]Ordered By: Sabrina Manriquez on 03-01-2025 Urobilinogen (U) [Mass/Vol] Normal mg/dL Normal [facility] pH of Urine by Test stripOrd ered By: Sabrina Manriquez on 03-01-2025 pH (U) 5.5 [pH] Normal 5.0-9.0 [facility] Comment on above: Order Comment: Name Collection Type:: Clean-Voided Midstream Performed By: #### C 4, CH50, C3 #### [facility] , #### CBC, ADDONUAPLUS, ESR, CMP, CRP #### [facility] [address] MR Cervical spine WO contras ton 01-05-2025 [place] [address] Magnetic Resonance Report Signed Patient: JAY CARR MR#: [id number] : 1960 Acct:[id number] Age/Sex: 64 / M ADM Date: 01/04/25 Loc: MRI Attending Dr: Brennen Sam M.D. Ordering Physician: Brennen Sam M.D. Date of Service: 01/04/25 Procedure(s): MR cervical spine wo con Accession Number(s): [id number] cc: Brennen Sam M.D.; Dania Armstrong M.D. [place] [id number] Patient Name: JAY CARR MRN: [id number] date: 1960 Sex: M Assigned Patient Location: MRI Current Patient Location: Accession/Order Number: [id number] Exam Date: 01/05/2025 07:51 Report Date: 01/05/2025 [...] uncal vertebral spurring causing moderate right and xoxu-jd-ixsdqtvx left-sided neural foraminal narrowing. Canal patent. C5-6: Prior discectomy. Minimal diffuse ossific bridging noted and uncovertebral spurring, prominent left-sided. This causes minimal right-sided mild left-sided neural foraminal narrowing. Canal is patent. C6-7: Discectomy and fusion. Diffuse ossific bridging and uncovertebral spur formation identified causing mild central canal and mild bilateral neural foramina narrowing. C7-T1: Mild uncovertebral spurring and oacq-de-jvpuxpuj facet arthropathy. This causes moderate bilateral neural from narrowing. Mild central canal stenosis. . MR/MR cervical spine wo con IMPRESSION: [id number] DEGENERATIVE CHANGES WITH UP TO MILD CENTRAL CANAL NARROWING. JUNCTIONAL DEGENERATIVE CHANGES AND FORAMINAL ENCROACHMENT DUE TO UNCOVERTEBRAL SPURRING GREATEST RIGHT AT C4-C5 Impression dictated by: Wallace Brewster M.D. 01/05/2025 7:58 AM Dictation Location: [place] [address] Electronically authenticated by: [id number] Y Date: 01/05/2025 07:58 Dictated By: Wallace Brewster M.D. 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 Ordering Physician: Brennen Sam M.D. Date of Service: 01/04/25 Procedure(s): MR cervical spine wo con Accession Number(s): [id number] cc: Brennen Sam M.D.; Dania Armstrong M.D. [address] [address] Patient Name: JAY CARR MRN: [id number] date: 1960 Sex: M Assigned Patient Location: MRI Current Patient Location: Accession/Order Number: [id number] Exam Date: 01/05/2025 07:51 Report Date: 01/05/2025 [...] uncal vertebral spurring causing moderate right and cjlc-lr-ghbbrcmj left-sided neural foraminal narrowing. Canal patent. C5-6: Prior discectomy. Minimal diffuse ossific bridging noted and uncovertebral spurring, prominent left-sided. This causes minimal right-sided mild left-sided neural foraminal narrowing. Canal is patent. C6-7: Discectomy and fusion. Diffuse ossific bridging and uncovertebral spur formation identified causing mild central canal and mild bilateral neural foramina narrowing. C7-T1: Mild uncovertebral spurring and jtkv-ls-grgyxaha facet arthropathy. This causes moderate bilateral neural from narrowing. Mild central canal stenosis. . MR/MR cervical spine wo con IMPRESSION: [id number] DEGENERATIVE CHANGES WITH UP TO MILD CENTRAL CANAL NARROWING. JUNCTIONAL DEGENERATIVE CHANGES AND FORAMINAL ENCROACHMENT DUE TO UNCOVERTEBRAL SPURRING GREATEST RIGHT AT C4-C5 Impression dictated by: Wallace Brewster M.D. 01/05/2025 7:58 AM Dictation Location: [place] [address] Electronically authenticated by: [id number] Y Date: 01/05/2025 07:58 Dictated By: Wallace Brewster M.D. Signed By: 01/05/25 0801 DD/ 0758 TD/TT: Marine Engineering Professor: [facility] Radiology Study observation (narrative) [facility] MR Cervical spine WO contras tOrdered By: Radiologist Radiology on 01-05-2025 [facility] [employer] Work Phone: Alanine aminotransferase [En zymatic activity/volume] in Serum or PlasmaOrdered By: Sabrina Manriquez on 10-13-2024 ALT [Catalytic activity/Vol] Alanine aminotransferase [Enzymatic activity/volume] in Serum or Plasma [facility] Albumin [Mass/volume] in Ser um or Plasma by Bromocresol green (BCG) dye binding methoOrdered By: Sabrina Manriquez on 10-13-2024 Albumin BCG dye [Mass/Vol] Albumin [Mass/volume] in Serum or Plasma by Bromocresol green (BCG) dye binding metho 3.5-5.7 [facility] Alkaline phosphatase [Enzyma tic activity/volume] in Serum or PlasmaOrdered By: Sabrina Manriquez on 10-13-2024 ALP [Catalytic activity/Vol] Alkaline phosphatase [Enzymatic activity/volume] in Serum or Plasma 34-104 [facility] Appearance of UrineOrdered B y: Sabrina Manriquez on 10-13-2024 Appearance (U) Urine appearance Clear [facility] Aspartate aminotransferase [ Enzymatic activity/volume] in Serum or PlasmaOrdered By: Sabrina Manriquez on 10-13-2024 AST [Catalytic activity/Vol] Aspartate aminotransferase [Enzymatic activity/volume] in Serum or Plasma 13-39 [facility] Bacteria [Presence] in Urine by AutomatedOrdered By: Sabrina Manriquez on 10-13-2024 Bacteria Auto Ql (U) Bacteria [Presence] in Urine by Automated None Seen [facility] Basophils Auto (Bld) [#/Vol] Ordered By: Sabrina Manriquez on 10-13-2024 Basophils (Bld) [#/Vol] Automated basophil count 0.0-0.2 [facility] Basophils/100 WBC Auto (Bld) Ordered By: Sabrina Manriquez on 10-13-2024 Basophils/100 WBC (Bld) Automated basophil % . [facility] Bilirubin Test strip Ql (U)O rdered By: Sabrina Manriquez on 10-13-2024 Bilirubin Ql (U) Bilirubin.total [Presence] in Urine by Test strip Negative [facility] Bilirubin.total [Mass/volume ] in Serum or PlasmaOrdered By: Sabrina Manriquez on 10-13-2024 Bilirubin [Mass/Vol] Bilirubin.total [Mass/volume] in Serum or Plasma 0.3-1.0 [facility] C reactive protein [Mass/vol ume] in Serum or PlasmaOrdered By: Sabrina Manriquez on 10-13-2024 CRP [Mass/Vol] C reactive protein [Mass/volume] in Serum or Plasma 0.0-0.5 [facility] C-Reactive Proteinon 025 CRP [Mass/Vol] mg/L Normal 0.0-0.5 [facility] Comment on above: Result Comment: PERF ORMED BY: [place] [address] PATHOLOGIST SEAFOOD FISHERMAN CHRIST FARAH M.D. Performed By: #### C 4, CH50, C3 #### [facility] , #### CBC, CRP, ESR, CMP, ADDONUAPLUS #### [address] Calcium [Mass/volume] in Ser um or PlasmaOrdered By: Sabrina Manriquez on 10-13-2024 Calcium [Mass/Vol] Calcium [Mass/volume ] in Serum or Plasma 8.6-10.3 [facility] Carbon dioxide, total [Moles /volume] in Serum or PlasmaOrdered By: Sabrina Manriquez on 10-13-2024 CO2 [Moles/Vol] Carbon dioxide, tota l [Moles/volume] in Serum or Plasma 21.0-31.0 [facility] Chloride [Moles/volume] in S lenny or PlasmaOrdered By: Sabrina Manriquez on 10-13-2024 Chloride [Moles/Vol] Chloride [Moles/vol ume] in Serum or Plasma 98-107 [facility] Color Auto (U)Ordered By: Emily Montiel on 10-13-2024 Color (U) Color of Urine by Auto Yellow [facility] Complement C3on 10-13-2024 Complement C3 126 mg/dL Normal 82-167 [facility] Comment on above: Result Comment: Perf ormed at: [facility] [place] [id number] [employer] Cashier: Derek Toscano PhD, Phone: [phone] Performed By: #### C 4, CH50, C3 #### [facility] , #### CBC, CRP, ESR, CMP, ADDONUAPLUS #### [address] Complement C4on 10-13-2024 Complement C4 23 mg/dL Normal 12-38 [facility] Comment on above: Result Comment: Perf ormed at: [facility] [address] [id number] [employer] Cashier: Derek Toscano PhD, Phone: [phone] PERFORMED BY: [place] [address] PATHOLOGIST SEAFOOD FISHERMAN CHRIST FARAH M.D. Performed By: #### C 4, CH50, C3 #### [facility] , #### CBC, CRP, ESR, CMP, ADDONUAPLUS #### [address] Complement Total (CH50)on Complement Total (CH50) 50 Normal >41 [facility] Comment on above: Result [...] of range values. Performed at: - [facility] [address] [id number] [employer] Cashier: Derek Toscano PhD, Phone: [phone] PERFORMED BY: [place] [address] PATHOLOGIST SEAFOOD FISHERMAN CHRIST FARAH M.D. Performed By: #### C 4, CH50, C3 #### [facility] , #### CBC, CRP, ESR, CMP, ADDONUAPLUS #### [address] Complete Blood Count Auto Di ffon 10-13-2024 Basophils (Bld) [#/Vol] 0.0 10*3/uL Normal 0.0-0.2 [facility] Comment on above: Performed By: #### C 4, CH50, C3 #### [facility] , #### CBC, CRP, ESR, CMP, ADDONUAPLUS #### [address] Basophils/100 WBC (Bld) 0.6 % Normal . [facility] Comment on above: Performed By: #### C 4, CH50, C3 #### [facility] , #### CBC, CRP, ESR, CMP, ADDONUAPLUS #### [place] [id number] [place] Eosinophils (Bld) [#/Vol] 0.1 10*3/uL Normal 0.0-0.45 [facility] Comment on above: Performed By: #### C 4, CH50, C3 #### [facility] , #### CBC, CRP, ESR, CMP, ADDONUAPLUS #### [address] Eosinophils/100 WBC (Bld) 1.2 % Normal . [facility] Comment on above: Performed By: #### C 4, CH50, C3 #### [facility] , #### CBC, CRP, ESR, CMP, ADDONUAPLUS #### [address] Erythrocyte distribution width (RBC) [Ratio] 13.8 % Normal 12.0-14.8 [facility] Comment on above: Performed By: #### C 4, CH50, C3 #### [facility] , #### CBC, CRP, ESR, CMP, ADDONUAPLUS #### [address] Hematocrit (Bld) [Volume fraction] 42.9 % Normal 38.8-50.0 [facility] Comment on above: Performed By: #### C 4, CH50, C3 #### [facility] , #### CBC, CRP, ESR, CMP, ADDONUAPLUS #### [address] Hemoglobin (Bld) [Mass/Vol] 14.8 g/dL Normal 13.0-17.0 [facility] Comment on above: Performed By: #### C 4, CH50, C3 #### [facility] , #### CBC, CRP, ESR, CMP, ADDONUAPLUS #### [address] Lymphocytes (Bld) [#/Vol] 1.1 10*3/uL Normal 1.00-4.8 [facility] Comment on above: Performed By: #### C 4, CH50, C3 #### [facility] , #### CBC, CRP, ESR, CMP, ADDONUAPLUS #### [address] Lymphocytes/100 WBC (Bld) 15.9 % Normal . [facility] Comment on above: Performed By: #### C 4, CH50, C3 #### [facility] , #### CBC, CRP, ESR, CMP, ADDONUAPLUS #### [address] MCH (RBC) [Entitic mass] 32.4 pg Normal 27.5-35.2 [facility] Comment on above: Performed By: #### C 4, CH50, C3 #### [facility] , #### CBC, CRP, ESR, CMP, ADDONUAPLUS #### [address] MCV (RBC) [Entitic vol] 94.2 fL Normal 83.5-101 [facility] Comment on above: Performed By: #### C 4, CH50, C3 #### [facility] , #### CBC, CRP, ESR, CMP, ADDONUAPLUS #### [address] Mean Corpuscular HGB Conc 34.4 g/dL Normal 32.5-35.6 [facility] Comment on above: Performed By: #### C 4, CH50, C3 #### [facility] , #### CBC, CRP, ESR, CMP, ADDONUAPLUS #### [address] Monocytes (Bld) [#/Vol] 0.5 10*3/uL Normal 0.0-0.8 [facility] Comment on above: Performed By: #### C 4, CH50, C3 #### [facility] , #### CBC, CRP, ESR, CMP, ADDONUAPLUS #### [address] Monocytes/100 WBC (Bld) 7.4 % Normal . [facility] Comment on above: Performed By: #### C 4, CH50, C3 #### [facility] , #### CBC, CRP, ESR, CMP, ADDONUAPLUS #### [address] Neutrophils (Bld) [#/Vol] 5.1 10*3/uL Normal 1.8-7.7 [facility] Comment on above: Performed By: #### C 4, CH50, C3 #### [facility] , #### CBC, CRP, ESR, CMP, ADDONUAPLUS #### [address] Neutrophils/100 WBC (Bld) 74.9 % Normal . [facility] Comment on above: Performed By: #### C 4, CH50, C3 #### [facility] , #### CBC, CRP, ESR, CMP, ADDONUAPLUS #### [address] NRBC% 0.1 /100{WBC} Normal 0-0.5 [facility] Comment on above: Performed By: #### C 4, CH50, C3 #### [facility] , #### CBC, CRP, ESR, CMP, ADDONUAPLUS #### [address] Platelet mean volume (Bld) [Entitic vol] 9.2 fL Normal 6.6-10.1 [facility] Comment on above: Performed By: #### C 4, CH50, C3 #### [facility] , #### CBC, CRP, ESR, CMP, ADDONUAPLUS #### [address] Platelets (Bld) [#/Vol] 232 10*3/uL Normal 150-450 [facility] Comment on above: Performed By: #### C 4, CH50, C3 #### [facility] , #### CBC, CRP, ESR, CMP, ADDONUAPLUS #### [address] RBC (Bld) [#/Vol] 4.56 10*6/uL Normal 3.90-5.60 [facility] Comment on above: Performed By: #### C 4, CH50, C3 #### [facility] , #### CBC, CRP, ESR, CMP, ADDONUAPLUS #### [address] WBC (Bld) [#/Vol] 6.8 10*3/uL Normal 4.1-10.5 [facility] Comment on above: Performed By: #### C 4, CH50, C3 #### [facility] , #### CBC, CRP, ESR, CMP, ADDONUAPLUS #### [address] Comprehensive Metabolic Pane tanika 10-13-2024 Albumin [Mass/Vol] 4.4 g/dL Normal 3.5-5.7 [facility] Comment on above: Performed By: #### C 4, CH50, C3 #### [facility] , #### CBC, CRP, ESR, CMP, ADDONUAPLUS #### [address] Albumin/Globulin [Mass ratio] 1.7 {ratio} Normal [facility] Comment on above: Performed By: #### C 4, CH50, C3 #### [facility] , #### CBC, CRP, ESR, CMP, ADDONUAPLUS #### [address] ALP [Catalytic activity/Vol] 92 U/L Normal 34-104 [facility] Comment on above: Performed By: #### C 4, CH50, C3 #### [facility] , #### CBC, CRP, ESR, CMP, ADDONUAPLUS #### [address] ALT [Catalytic activity/Vol] 29 U/L Normal 7-52 [facility] Comment on above: Performed By: #### C 4, CH50, C3 #### [facility] , #### CBC, CRP, ESR, CMP, ADDONUAPLUS #### [address] Anion gap [Moles/Vol] 11.0 mmol/L Normal 6.0-15.0 [facility] Comment on above: Performed By: #### C 4, CH50, C3 #### [facility] , #### CBC, CRP, ESR, CMP, ADDONUAPLUS #### [address] AST [Catalytic activity/Vol] 30 U/L Normal 13-39 [facility] Comment on above: Performed By: #### C 4, CH50, C3 #### [facility] , #### CBC, CRP, ESR, CMP, ADDONUAPLUS #### [address] Bilirubin [Mass/Vol] 0.7 mg/dL Normal 0.3-1.0 [facility] Comment on above: Performed By: #### C 4, CH50, C3 #### [facility] , #### CBC, CRP, ESR, CMP, ADDONUAPLUS #### [address] Calcium [Mass/Vol] 9.4 mg/dL Normal 8.6-10.3 [facility] Comment on above: Performed By: #### C 4, CH50, C3 #### [facility] , #### CBC, CRP, ESR, CMP, ADDONUAPLUS #### [address] Chloride [Moles/Vol] 105 mmol/L Normal 98-107 [facility] Comment on above: Performed By: #### C 4, CH50, C3 #### [facility] , #### CBC, CRP, ESR, CMP, ADDONUAPLUS #### [address] CO2 [Moles/Vol] 27.9 mmol/L Normal 21.0-31.0 [facility] Comment on above: Performed By: #### C 4, CH50, C3 #### [facility] , #### CBC, CRP, ESR, CMP, ADDONUAPLUS #### [address] Creatinine [Mass/Vol] 0.94 mg/dL Normal 0.70-1.30 [facility] Comment on above: Performed By: #### C 4, CH50, C3 #### [facility] , #### CBC, CRP, ESR, CMP, ADDONUAPLUS #### [address] GFR/1.73 sq M.predicted MDRD (S/P/Bld) [Vol rate/Area] mL/min/{1.73_m2} Normal [facility] Comment on above: Performed By: #### C 4, CH50, C3 #### [facility] , #### CBC, CRP, ESR, CMP, ADDONUAPLUS #### [address] Globulin (S) [Mass/Vol] 2.6 g/dL Normal [facility] Comment on above: Performed By: #### C 4, CH50, C3 #### [facility] , #### CBC, CRP, ESR, CMP, ADDONUAPLUS #### [address] Glucose [Mass/Vol] 88 mg/dL Normal 70-100 [facility] Comment on above: [...] #### CBC, CRP, ESR, CMP, ADDONUAPLUS #### [address] Potassium [Moles/Vol] 3.9 mmol/L Normal 3.5-5.1 [facility] Comment on above: Performed By: #### C 4, CH50, C3 #### [facility] , #### CBC, CRP, ESR, CMP, ADDONUAPLUS #### [address] Protein [Mass/Vol] 7.0 g/dL Normal 6.4-8.9 [facility] Comment on above: Performed By: #### C 4, CH50, C3 #### [facility] , #### CBC, CRP, ESR, CMP, ADDONUAPLUS #### [place] [address] [place] Sodium [Moles/Vol] 140 mmol/L Normal 136-145 [facility] Comment on above: Performed By: #### C 4, CH50, C3 #### [facility] , #### CBC, CRP, ESR, CMP, ADDONUAPLUS #### [address] Urea nitrogen [Mass/Vol] 18 mg/dL Normal 7-25 [facility] Comment on above: Performed By: #### C 4, CH50, C3 #### [facility] , #### CBC, CRP, ESR, CMP, ADDONUAPLUS #### [place] [address] [place] Creatinine [Mass/volume] in Serum or PlasmaOrdered By: Sabrina Manriquez on 10-13-2024 Creatinine [Mass/Vol] Creatinine [Mass/v olume] in Serum or Plasma 0.70-1.30 [facility] Dipstick and Microscopicon 0 10-13-2024 Appearance (U) Clear Normal Clear [facility] Comment on above: Order Comment: Name Collection Type:: Clean-Voided Midstream Performed By: #### C 4, CH50, C3 #### [facility] , #### CBC, CRP, ESR, CMP, ADDONUAPLUS #### [address] Bacteria,Urine None Seen Normal None Seen [facility] Comment on above: Order Comment: Name Collection Type:: Clean-Voided Midstream Performed By: #### C 4, CH50, C3 #### [facility] , #### CBC, CRP, ESR, CMP, ADDONUAPLUS #### [place] [address] [place] Bilirubin,Urine Negative Normal Negative [facility] Comment on above: Order Comment: Name Collection Type:: Clean-Voided Midstream Performed By: #### C 4, CH50, C3 #### [facility] , #### CBC, CRP, ESR, CMP, ADDONUAPLUS #### [place] [address] [place] Color (U) Yellow Normal Yellow [facility] Comment on above: Order Comment: Name Collection Type:: Clean-Voided Midstream Performed By: #### C 4, CH50, C3 #### [facility] , #### CBC, CRP, ESR, CMP, ADDONUAPLUS #### [place] [address] Glucose Ql (U) Normal Normal Normal [facility] Comment on above: Order Comment: Name Collection Type:: Clean-Voided Midstream Performed By: #### C 4, CH50, C3 #### [facility] , #### CBC, CRP, ESR, CMP, ADDONUAPLUS #### [address] Hyaline Casts,Urine None Normal 0-8 [facility] Comment on above: Order Comment: Name Collection Type:: Clean-Voided Midstream Performed By: #### C 4, CH50, C3 #### [facility] , #### CBC, CRP, ESR, CMP, ADDONUAPLUS #### [address] Ketones Ql (U) Negative Normal Negative [facility] Comment on above: Order Comment: Name Collection Type:: Clean-Voided Midstream Performed By: #### C 4, CH50, C3 #### [facility] , #### CBC, CRP, ESR, CMP, ADDONUAPLUS #### [address] Leukocyte esterase Test strip Ql (U) Negative Normal Negative [facility] Comment on above: Order Comment: Name Collection Type:: Clean-Voided Midstream Performed By: #### C 4, CH50, C3 #### [facility] , #### CBC, CRP, ESR, CMP, ADDONUAPLUS #### [address] Mucus,Urine 1+ Critically abnormal [facility] Comment on above: Order Comment: Name Collection Type:: Clean-Voided Midstream Result Comment: PERF ORMED BY: [place] [address] PATHOLOGIST SEAFOOD FISHERMAN CHRIST FARAH M.D. Performed By: #### C 4, CH50, C3 #### [facility] , #### CBC, CRP, ESR, CMP, ADDONUAPLUS #### [address] Nitrite,Urine Negative Normal Negative [facility] Comment on above: Order Comment: Name Collection Type:: Clean-Voided Midstream Performed By: #### C 4, CH50, C3 #### [facility] , #### CBC, CRP, ESR, CMP, ADDONUAPLUS #### [address] Occult Blood,Urine Negative Normal Negative [facility] Comment on above: Order Comment: Name Collection Type:: Clean-Voided Midstream Performed By: #### C 4, CH50, C3 #### [facility] , #### CBC, CRP, ESR, CMP, ADDONUAPLUS #### [address] pH (U) 5.5 [pH] Normal 5.0-9.0 [facility] Comment on above: Order Comment: Name Collection Type:: Clean-Voided Midstream Performed By: #### C 4, CH50, C3 #### [facility] , #### CBC, CRP, ESR, CMP, ADDONUAPLUS #### [address] Protein (U) [Mass/Vol] 20 mg/dL High Negative Th [facility] Comment on above: Order Comment: Name Collection Type:: Clean-Voided Midstream Performed By: #### C 4, CH50, C3 #### [facility] , #### CBC, CRP, ESR, CMP, ADDONUAPLUS #### [address] RBC,Urine 1-2 Normal 0-4 [facility] Comment on above: Order Comment: Name Collection Type:: Clean-Voided Midstream Performed By: #### C 4, CH50, C3 #### [facility] , #### CBC, CRP, ESR, CMP, ADDONUAPLUS #### [address] Specificy [place],Urine 1.024 Normal 1.001-1.03 0 [facility] Comment on above: Order Comment: Name Collection Type:: Clean-Voided Midstream Performed By: #### C 4, CH50, C3 #### [facility] , #### CBC, CRP, ESR, CMP, ADDONUAPLUS #### [address] Squamous Epithelial Cell,Urine 1-2 Normal 0-2 [facility] Comment on above: Order Comment: Name Collection Type:: Clean-Voided Midstream Performed By: #### C 4, CH50, C3 #### [facility] , #### CBC, CRP, ESR, CMP, ADDONUAPLUS #### [address] Urobilinogen,Urine Normal Normal Normal [facility] Comment on above: Order Comment: Name Collection Type:: Clean-Voided Midstream Performed By: #### C 4, CH50, C3 #### [facility] , #### CBC, CRP, ESR, CMP, ADDONUAPLUS #### [address] WBC,Urine 1-2 Normal 0-4 [facility] Comment on above: Order Comment: Name Collection Type:: Clean-Voided Midstream Performed By: #### C 4, CH50, C3 #### [facility] , #### CBC, CRP, ESR, CMP, ADDONUAPLUS #### [address] Eosinophils Auto (Bld) [#/Vo l]Ordered By: Sabrina Manriquez on 10-13-2024 Eosinophils (Bld) [#/Vol] Automated eosinophil count 0.0-0.45 [facility] Eosinophils/100 WBC Auto (Bl d)Ordered By: Sabrina Manriquez on 10-13-2024 Eosinophils/100 WBC (Bld) Automated eosinophil % . [facility] Epithelial cells.squamous [# /area] in Urine sediment by Automated countOrdered By: Sabrina Manriquez on 10-13-2024 Epithelial cells.squamous Auto (Urine sed) [#/Area] Epithelial cells.squamous [#/area] in Urine sediment by Automated count 0-2 [facility] Erythrocyte Sedimentation Ra natan 10-13-2024 ESR (Bld) [Velocity] 7 mm/h Normal 0-19 [facility] Comment on above: Result Comment: PERF ORMED BY: [place] [address] PATHOLOGIST SEAFOOD FISHERMAN CHRIST FARAH M.D. Performed By: #### C 4, CH50, C3 #### [facility] , #### CBC, CRP, ESR, CMP, ADDONUAPLUS #### [address] Erythrocyte distribution wid th Auto (RBC) [Ratio]Ordered By: Sabrina aMnriquez on 10-13-2024 Erythrocyte distribution width (RBC) [Ratio] Erythrocyte distribution width [Ratio] by Automated count 12.0-14.8 [facility] Erythrocyte sedimentation ra te by Photometric methodOrdered By: Sabrina Manriquez on 10-13-2024 ESR Photometric method (Bld) [Velocity] Erythrocyte sedimentation rate by Photometric method 0-19 [facility] Erythrocytes [#/area] in Uri ne sediment by Automated countOrdered By: Sabrina Manriquez on 10-13-2024 RBC Auto (Urine sed) [#/Area] Erythrocytes [#/area] in Urine sediment by Automated count 0-4 [facility] Globulin Calc (S) [Mass/Vol] Ordered By: Sabrina Manriquez on 10-13-2024 Globulin (S) [Mass/Vol] Serum globulin measurement by calculation (mass/volume) [facility] Glucose [Mass/volume] in Ser um or PlasmaOrdered By: Sabrina Manriquez on 10-13-2024 Glucose [Mass/Vol] Glucose [Mass/volume ] in Serum or Plasma 70-100 [facility] Comment on above: ADA recommended [...] [Mass/volume] in Urine by Test strip Normal [facility] Hematocrit Auto (Bld) [Volum e fraction]Ordered By: Sabrina Manriquez on 10-13-2024 Hematocrit (Bld) [Volume fraction] Hematocrit [Volume Fraction] of Blood by Automated count 38.8-50.0 [facility] Hemoglobin Test strip Ql (U) Ordered By: Sabrina Manriquez on 10-13-2024 Hemoglobin Ql (U) Hemoglobin [Presence ] in Urine by Test strip Negative [facility] Hemoglobin [Mass/volume] in BloodOrdered By: Sabrina Manriquez on 10-13-2024 Hemoglobin (Bld) [Mass/Vol] Hemoglobin [Mass/volume] in Blood 13.0-17.0 [facility] Hyaline casts [#/area] in Ur ine sediment by Automated countOrdered By: Sabrina Manriquez on 10-13-2024 Hyaline casts Auto (Urine sed) [#/Area] Hyaline casts [#/area] in Urine sediment by Automated count 0-8 [facility] Ketones Test strip Ql (U)Ord ered By: Sabrina Manriquez on 10-13-2024 Ketones Ql (U) Ketones [Presence] i n Urine by Test strip Negative [facility] Leukocyte esterase [Presence ] in Urine by Test stripOrdered By: Sabrina Manriquez on 10-13-2024 Leukocyte esterase Test strip Ql (U) Leukocyte esterase [Presence] in Urine by Test strip Negative [facility] Leukocytes [#/area] in Urine sediment by Automated countOrdered By: Sabrina Manriquez on 10-13-2024 WBC Auto (Urine sed) [#/Area] Leukocytes [#/area] in Urine sediment by Automated count 0-4 [facility] Leukocytes [#/volume] correc leah for nucleated erythrocytes in Blood by Automated counOrdered By: Sabrina Manriquez on 10-13-2024 WBC corrected for nucl RBC Auto (Bld) [#/Vol] Leukocytes [#/volume] corrected for nucleated erythrocytes in Blood by Automated coun 4.1-10.5 [facility] Lymphocytes Auto (Bld) [#/Vo l]Ordered By: Sabrina Manriquez on 10-13-2024 Lymphocytes (Bld) [#/Vol] Lymphocytes [#/volume] in Blood by Automated count 1.00-4.8 [facility] Lymphocytes/100 WBC Auto (Bl d)Ordered By: Sabrina Manriquez on 10-13-2024 Lymphocytes/100 WBC (Bld) Lymphocytes/100 leukocytes in Blood by Automated count . [facility] MCH Auto (RBC) [Entitic mass ]Ordered By: Sabrina Manriquez on 10-13-2024 MCH (RBC) [Entitic mass] MCH [Entitic mass] by Automated count 27.5-35.2 [facility] MCHC Auto (RBC) [Mass/Vol]Or dered By: Sabrina Manriquez on 10-13-2024 MCHC (RBC) [Mass/Vol] MCHC [Mass/volume] by Automated count 32.5-35.6 [facility] MCV Auto (RBC) [Entitic vol] Ordered By: Sabrina Manriquez on 10-13-2024 MCV (RBC) [Entitic vol] MCV [Entitic volume] by Automated count 83.5-101 [facility] Monocytes Auto (Bld) [#/Vol] Ordered By: Sabrina Manriquez on 10-13-2024 Monocytes (Bld) [#/Vol] Automated blood monocyte count 0.0-0.8 [facility] Monocytes/100 WBC Auto (Bld) Ordered By: Sabrina Manriquez on 10-13-2024 Monocytes/100 WBC (Bld) Automated monocyte % . [facility] Mucus [Presence] in Urine by AutomatedOrdered By: Sabrina Manriquez on 10-13-2024 Mucus Auto Ql (U) Mucus [Presence] in Urine by Automated Abnormal [facility] Neutrophils Auto (Bld) [#/Vo l]Ordered By: Sabrina Manriquez on 10-13-2024 Neutrophils (Bld) [#/Vol] Neutrophils [#/volume] in Blood by Automated count 1.8-7.7 [facility] Neutrophils/100 WBC Auto (Bl d)Ordered By: Sabrina Manriquez on 10-13-2024 Neutrophils/100 WBC (Bld) Automated neutrophil % . [facility] Nitrite Test strip Ql (U)Ord ered By: Sabrina Manriquez on 10-13-2024 Nitrite Ql (U) Nitrite [Presence] i n Urine by Test strip Negative [facility] No Panel InformationOrdered By: Sabrina Manriquez on 10-13-2024 Estimated GFR (CKD-EPI) > 60.0 mL/Min [facility] Creatinine Clearance (Chem N/A [facility] Nucleated erythrocytes [Pres ence] in Blood by Automated countOrdered By: Sabrina Manriquez on 10-13-2024 Nucleated RBC Auto Ql (Bld) Nucleated erythrocytes [Presence] in Blood by Automated count 0-0.5 [facility] Platelet mean volume Auto (B ld) [Entitic vol]Ordered By: Sabrina Manriquez on 10-13-2024 Platelet mean volume (Bld) [Entitic vol] Platelet mean volume [Entitic volume] in Blood by Automated count 6.6-10.1 [facility] Platelets Auto (Bld) [#/Vol] Ordered By: Sabrina Manriquez on 10-13-2024 Platelets (Bld) [#/Vol] Platelets [#/volume] in Blood by Automated count 150-450 [facility] Potassium [Moles/volume] in Serum or PlasmaOrdered By: Sabrina Manriquez on 10-13-2024 Potassium [Moles/Vol] Potassium [Moles/v olume] in Serum or Plasma 3.5-5.1 [facility] Protein Test strip (U) [Mass /Vol]Ordered By: Sabrina Manriquez on 10-13-2024 Protein (U) [Mass/Vol] Protein [Mass/vol ume] in Urine by Test strip High Negative [facility] Protein [Mass/volume] in Ser um or PlasmaOrdered By: Sabrina Manriquez on 10-13-2024 Protein [Mass/Vol] Protein [Mass/volume ] in Serum or Plasma 6.4-8.9 [facility] RBC Auto (Bld) [#/Vol]Ordere d By: Sabrina Manriquez on 10-13-2024 RBC (Bld) [#/Vol] Erythrocytes [#/volu me] in Blood by Automated count 3.90-5.60 [facility] Serum or plasma albumin/glob ulin mass ratioOrdered By: Sabrina Manriquez on 10-13-2024 Albumin/Globulin [Mass ratio] Serum or plasma albumin/globulin mass ratio [facility] Serum or plasma anion gap de terminationOrdered By: Sabrina Manriquez on 10-13-2024 Anion gap [Moles/Vol] Serum or plasma an ion gap determination 6.0-15.0 [facility] Sodium [Moles/volume] in Ser um or PlasmaOrdered By: Sabrina Manriquez on 10-13-2024 Sodium [Moles/Vol] Sodium [Moles/volume ] in Serum or Plasma 136-145 [facility] Specific gravity Test strip (U) [Rel density]Ordered By: Sabrina Manriquez on 10-13-2024 Specific gravity (U) [Rel density] Specific gravity of Urine by Test strip 1.001-1.03 0 [facility] Urea nitrogen [Mass/volume] in Serum or PlasmaOrdered By: Sabrina Manriquez on 10-13-2024 Urea nitrogen [Mass/Vol] Urea nitrogen [Mass/volume] in Serum or Plasma 7-25 [facility] Urobilinogen Test strip (U) [Mass/Vol]Ordered By: Sabrina Manriquez on 10-13-2024 Urobilinogen (U) [Mass/Vol] Urobilinogen [Mass/volume] in Urine by Test strip Normal [facility] WBC Auto (Bld) [#/Vol]Ordere d By: Sabrina Manriquez on 04-22-2025 WBC (Bld) [#/Vol] Leukocytes [#/volume ] in Blood by Automated count 4.1-10.5 [facility] pH Test strip (U)Ordered By: Sabrina Manriquez on 10-13-2024 pH (U) pH of Urine by Test strip 5.0-9.0 [facility] Ambulatory Visit Summaryon 1 [...] Shun MACHADO MD Where: [facility] [address] [address]- You Need to Schedule the Following Appointments Follow Up with CHRIS RIVERA, BREN Rodriguez When: Where: [address] [place] [address]- Medications What How Much When Instructions Unchanged [...] tips fo (more content not included)... Normal [facility] Urology Office/Clinic Noteon 04-13-2024 Urology Office/Clinic [...] Shun Mirza, URL [address] [place] [id number]- Additional Instructions: 1 yr with [employer]UB and [...] with voice recognition artificial intelligence software, specifically [employer] and or [employer]. Substitutions may have occurred due to the [...] Kidney stone (more content not included)... Normal [facility] Comment on above: Result Comment: Elec tronically Signed By: Shun MACHADO MD\.br\Date and Time Signed: 04/13/24 10:19 EDT\.br\Electronically Co-Signed By: Mary Alicea\.br\Date and Time Co-Signed: 04/13/24 10:15 EDT Alanine aminotransferase [En zymatic activity/volume] in Serum or PlasmaOrdered By: Sabrina Manriquez on 03-04-2024 ALT [Catalytic activity/Vol] 27 U/L 7-52 [facility] Albumin [Mass/volume] in Ser um or Plasma by Bromocresol green (BCG) dye binding methoOrdered By: Sabrina Manriquez on 03-04-2024 Albumin BCG dye [Mass/Vol] 4.4 g/dL 3.5-5.7 [facility] Alkaline phosphatase [Enzyma tic activity/volume] in Serum or PlasmaOrdered By: Sabrina Manriquez on 03-04-2024 ALP [Catalytic activity/Vol] 92 U/L 34-104 [facility] Aspartate aminotransferase [ Enzymatic activity/volume] in Serum or PlasmaOrdered By: Sabrina Manriquez on 03-04-2024 AST [Catalytic activity/Vol] 21 U/L 13-39 [facility] Bacteria [Presence] in Urine by AutomatedOrdered By: Sabrina Manriquez on 03-04-2024 Bacteria Auto Ql (U) None seen [HPF] None Seen [facility] Basophils Auto (Bld) [#/Vol] Ordered By: Sabrina Manriquez on 03-04-2024 Basophils (Bld) [#/Vol] 0.0 10*3/uL 0.0-0.2 [facility] Basophils/100 WBC Auto (Bld) Ordered By: Sabrina Manriquez on 03-04-2024 Basophils/100 WBC (Bld) 0.6 % . [facility] Bilirubin Test strip Ql (U)O rdered By: Sabrina Manriquez on 03-04-2024 Bilirubin Ql (U) Negative Negative [facility] Bilirubin.total [Mass/volume ] in Serum or PlasmaOrdered By: Sabrina Manriquez on 03-04-2024 Bilirubin [Mass/Vol] 0.6 mg/dL 0.3-1.0 [facility] C reactive protein [Mass/vol ume] in Serum or PlasmaOrdered By: Sabrina Manriquez on 03-04-2024 CRP [Mass/Vol] < 0.5 mg/dL 0.0-0.5 [facility] Calcium [Mass/volume] in Ser um or PlasmaOrdered By: Sabrina Manriquez on 03-04-2024 Calcium [Mass/Vol] 9.2 mg/dL 8.6-10.3 [facility] Carbon dioxide, total [Moles /volume] in Serum or PlasmaOrdered By: Sabrina Manriquez on 03-04-2024 CO2 [Moles/Vol] 29.4 mmol/L 21.0-31.0 [facility] Chloride [Moles/volume] in S lenny or PlasmaOrdered By: Sabrina Manriquez on 03-04-2024 Chloride [Moles/Vol] 104 mmol/L 98-107 [facility] Color Auto (U)Ordered By: Emily Montiel on 03-04-2024 Color (U) Light-yellow Yellow [facility] Creatinine [Mass/volume] in Serum or PlasmaOrdered By: Sabrina Manriquez on 03-04-2024 Creatinine [Mass/Vol] 0.93 mg/dL 0.70-1.30 [facility] Eosinophils Auto (Bld) [#/Vo l]Ordered By: Sabrina Manriquez on 03-04-2024 Eosinophils (Bld) [#/Vol] 0.1 10*3/uL 0.0-0.45 [facility] Eosinophils/100 WBC Auto (Bl d)Ordered By: Sabrina Manriquez on 03-04-2024 Eosinophils/100 WBC (Bld) 1.3 % . [facility] Epithelial cells.squamous [# /area] in Urine sediment by Automated countOrdered By: Sabrina Manriquez on 03-04-2024 Epithelial cells.squamous Auto (Urine sed) [#/Area] N/A [facility] Erythrocyte distribution wid th Auto (RBC) [Ratio]Ordered By: Sabrina Manriquez on 03-04-2024 Erythrocyte distribution width (RBC) [Ratio] 13.6 % 12.0-14.8 [facility] Erythrocyte sedimentation ra te by Photometric methodOrdered By: Sabrina Manriquez on 03-04-2024 ESR Photometric method (Bld) [Velocity] 9 mm/hr 0-19 [facility] Erythrocytes [#/area] in Uri ne sediment by Automated countOrdered By: Sabrina Manriquez on 03-04-2024 RBC Auto (Urine sed) [#/Area] 1-2 [HPF] 0-4 [facility] Globulin Calc (S) [Mass/Vol] Ordered By: Sabrina Manriquez on 03-04-2024 Globulin (S) [Mass/Vol] 2.7 g/dL [facility] Glucose [Mass/volume] in Ser um or PlasmaOrdered By: Sabrina Manriquez on 03-04-2024 Glucose [Mass/Vol] 132 mg/dL High 70-100 [facility] Comment on above: ADA recommended refe rence rangeRandom Glucose Reference Range is dependent on time and content of last meal. Glucose of more than 200 mg/dL in a nonstressed, ambulatory subject supports the diagnosis of Diabetes Mellitus. Glucose [Mass/volume] in Uri ne by Test stripOrdered By: Sabrina Manriquez on 03-04-2024 Glucose Test strip (U) [Mass/Vol] Normal mg/dL Normal [facility] Hematocrit Auto (Bld) [Volum e fraction]Ordered By: Sabrina Manriquez on 03-04-2024 Hematocrit (Bld) [Volume fraction] 42.8 % 38.8-50.0 [facility] Hemoglobin Test strip Ql (U) Ordered By: Sabrina Manriquez on 03-04-2024 Hemoglobin Ql (U) Negative Negative [facility] Hemoglobin [Mass/volume] in BloodOrdered By: Sabrina Manriquez on 03-04-2024 Hemoglobin (Bld) [Mass/Vol] 14.6 g/dL 13.0-17.0 [facility] Hyaline casts [#/area] in Ur ine sediment by Automated countOrdered By: Sabrina Manriquez on 03-04-2024 Hyaline casts Auto (Urine sed) [#/Area] None [LPF] 0-8 [facility] Ketones Test strip Ql (U)Ord ered By: Sabrina Manriquez on 03-04-2024 Ketones Ql (U) Negative Negative [facility] Leukocyte esterase [Presence ] in Urine by Test stripOrdered By: Sabrina aMnriquez on 03-04-2024 Leukocyte esterase Test strip Ql (U) Negative Negative [facility] Leukocytes [#/area] in Urine sediment by Automated countOrdered By: Sabrina Manriquez on 03-04-2024 WBC Auto (Urine sed) [#/Area] 1-2 [HPF] 0-4 [facility] Leukocytes [#/volume] correc leah for nucleated erythrocytes in Blood by Automated counOrdered By: Sabrina Manriquez on 03-04-2024 WBC corrected for nucl RBC Auto (Bld) [#/Vol] 5.1 10*3/uL 4.1-10.5 [facility] Lymphocytes Auto (Bld) [#/Vo l]Ordered By: Sabrina Manriquez on 03-04-2024 Lymphocytes (Bld) [#/Vol] 1.1 10*3/uL 1.00-4.8 [facility] Lymphocytes/100 WBC Auto (Bl d)Ordered By: Sabrina Manriquez on 03-04-2024 Lymphocytes/100 WBC (Bld) 20.8 % . [facility] MCH Auto (RBC) [Entitic mass ]Ordered By: Sabrina Manriquez on 03-04-2024 MCH (RBC) [Entitic mass] 32.2 pg 27.5-35.2 [facility] MCHC Auto (RBC) [Mass/Vol]Or dered By: Sabrina Manriquez on 03-04-2024 MCHC (RBC) [Mass/Vol] 34.2 g/dL 32.5-35.6 [facility] MCV Auto (RBC) [Entitic vol] Ordered By: Sabrina Manriquez on 03-04-2024 MCV (RBC) [Entitic vol] 94.2 fL 83.5-101 [facility] Monocytes Auto (Bld) [#/Vol] Ordered By: Sabrina Manriquez on 03-04-2024 Monocytes (Bld) [#/Vol] 0.3 10*3/uL 0.0-0.8 [facility] Monocytes/100 WBC Auto (Bld) Ordered By: Sabrina Manriquez on 03-04-2024 Monocytes/100 WBC (Bld) 6.6 % . [facility] Mucus [Presence] in Urine by AutomatedOrdered By: Sabrina Manriquez on 03-04-2024 Mucus Auto Ql (U) Rare [LPF] [facility] Neutrophils Auto (Bld) [#/Vo l]Ordered By: Sabrina Manriquez on 03-04-2024 Neutrophils (Bld) [#/Vol] 3.6 10*3/uL 1.8-7.7 [facility] Neutrophils/100 WBC Auto (Bl d)Ordered By: Sabrina Manriquez on 03-04-2024 Neutrophils/100 WBC (Bld) 70.7 % . [facility] Nitrite Test strip Ql (U)Ord ered By: Sabrina Manriquez on 03-04-2024 Nitrite Ql (U) Negative Negative [facility] No Panel InformationOrdered By: Sabrina Manriquez on 03-04-2024 Estimated GFR (CKD-EPI) > 60.0 mL/Min [facility] Creatinine Clearance (Chem N/A [facility] Nucleated erythrocytes [Pres ence] in Blood by Automated countOrdered By: Sabrina Manriquez on 03-04-2024 Nucleated RBC Auto Ql (Bld) 0.1 /100{WBC} 0-0.5 [facility] Platelet mean volume Auto (B ld) [Entitic vol]Ordered By: Sabrina Manriquez on 03-04-2024 Platelet mean volume (Bld) [Entitic vol] 9.1 fL 6.6-10.1 [facility] Platelets Auto (Bld) [#/Vol] Ordered By: Sabrina Manriquez on 03-04-2024 Platelets (Bld) [#/Vol] 235 10*3/uL 150-450 [facility] Potassium [Moles/volume] in Serum or PlasmaOrdered By: Sabrina Manriquez on 03-04-2024 Potassium [Moles/Vol] 4.2 mmol/L 3.5-5.1 [facility] Protein Test strip (U) [Mass /Vol]Ordered By: Sabrina Manriquez on 03-04-2024 Protein (U) [Mass/Vol] Trace mg/dL High Negative [facility] Protein [Mass/volume] in Ser um or PlasmaOrdered By: Sabrina Manriquez on 03-04-2024 Protein [Mass/Vol] 7.1 g/dL 6.4-8.9 [facility] RBC Auto (Bld) [#/Vol]Ordere d By: Sabrina Manriquez on 03-04-2024 RBC (Bld) [#/Vol] 4.54 10*6/uL 3.90-5.60 [facility] Serum or plasma albumin/glob ulin mass ratioOrdered By: Sabrina Manriquez on 03-04-2024 Albumin/Globulin [Mass ratio] 1.6 {ratio} [facility] Serum or plasma anion gap de terminationOrdered By: Sabrina Manriquez on 03-04-2024 Anion gap [Moles/Vol] 10.8 mmol/L 6.0-15.0 [facility] Sodium [Moles/volume] in Ser um or PlasmaOrdered By: Sabrina Manriquez on 03-04-2024 Sodium [Moles/Vol] 140 mmol/L 136-145 [facility] Specific gravity Test strip (U) [Rel density]Ordered By: Sabrina Manriquez on 03-04-2024 Specific gravity (U) [Rel density] 1.020 1.001-1.03 0 [facility] Urea nitrogen [Mass/volume] in Serum or PlasmaOrdered By: Sabrina Manriquez on 03-04-2024 Urea nitrogen [Mass/Vol] 18 mg/dL 7-25 [facility] Urine appearanceOrdered By: Sabrina Manriquez on 03-04-2024 Appearance (U) Clear Clear [facility] Urobilinogen Test strip (U) [Mass/Vol]Ordered By: Sabrina Manriquez on 03-04-2024 Urobilinogen (U) [Mass/Vol] Normal mg/dL Normal [facility] WBC Auto (Bld) [#/Vol]Ordere d By: Sabrina Manriquez on 03-04-2024 WBC (Bld) [#/Vol] 5.1 10*3/uL 4.1-10.5 [facility] pH Test strip (U)Ordered By: Sabrina Manriquez on 03-04-2024 pH (U) 5.5 [pH] 5.0-9.0 [facility] Alanine aminotransferase [En zymatic activity/volume] in Serum or PlasmaOrdered By: Sabrina Manriquez on 11-19-2023 ALT [Catalytic activity/Vol] 28 U/L 7-52 [facility] Albumin [Mass/volume] in Ser um or Plasma by Bromocresol green (BCG) dye binding methoOrdered By: Sabrina Manriquez on 11-19-2023 Albumin BCG dye [Mass/Vol] 4.1 g/dL 3.5-5.7 [facility] Alkaline phosphatase [Enzyma tic activity/volume] in Serum or PlasmaOrdered By: Sabrina Manriquez on 11-19-2023 ALP [Catalytic activity/Vol] 70 U/L 34-104 [facility] Aspartate aminotransferase [ Enzymatic activity/volume] in Serum or PlasmaOrdered By: Sabrina Manriquez on 11-19-2023 AST [Catalytic activity/Vol] 29 U/L 13-39 [facility] Automated epithelial cells c ount in urine sediment (number/area)Ordered By: Sabrina Manriquez on 11-19-2023 Epithelial cells Auto (Urine sed) [#/Area] None seen [HPF] 0-2 [facility] Bacteria [Presence] in Urine by AutomatedOrdered By: Sabrina Manriquez on 11-19-2023 Bacteria Auto Ql (U) None seen [HPF] None Seen [facility] Basophils Auto (Bld) [#/Vol] Ordered By: Sabrina Manriquez on 11-19-2023 Basophils (Bld) [#/Vol] 0.0 10*3/uL 0.0-0.2 [facility] Basophils/100 WBC Auto (Bld) Ordered By: Sabrina Manriquez on 11-19-2023 Basophils/100 WBC (Bld) 0.7 % . [facility] Bilirubin Test strip Ql (U)O rdered By: Sabrina Manriquez on 11-19-2023 Bilirubin Ql (U) Negative Negative [facility] Bilirubin.total [Mass/volume ] in Serum or PlasmaOrdered By: Sabrina Manriquez on 11-19-2023 Bilirubin [Mass/Vol] 0.5 mg/dL 0.3-1.0 [facility] C reactive protein [Mass/vol ume] in Serum or PlasmaOrdered By: Sabrina Manriquez on 11-19-2023 CRP [Mass/Vol] < 0.5 mg/dL 0.0-0.5 [facility] Calcium [Mass/volume] in Ser um or PlasmaOrdered By: Sabrina Manriquez on 11-19-2023 Calcium [Mass/Vol] 9.1 mg/dL 8.6-10.3 [facility] Carbon dioxide, total [Moles /volume] in Serum or PlasmaOrdered By: Sabrina Manriquez on 11-19-2023 CO2 [Moles/Vol] 30.2 mmol/L 21.0-31.0 [facility] Chloride [Moles/volume] in S lenny or PlasmaOrdered By: Sabrina Manriquez on 11-19-2023 Chloride [Moles/Vol] 105 mmol/L 98-107 [facility] Color Auto (U)Ordered By: Emily Montiel on 11-19-2023 Color (U) Yellow Yellow [facility] Creatinine [Mass/volume] in Serum or PlasmaOrdered By: Sabrina Manriquez on 11-19-2023 Creatinine [Mass/Vol] 0.97 mg/dL 0.70-1.30 [facility] Eosinophils Auto (Bld) [#/Vo l]Ordered By: Sabrina Manriquez on 11-19-2023 Eosinophils (Bld) [#/Vol] 0.1 10*3/uL 0.0-0.45 [facility] Eosinophils/100 WBC Auto (Bl d)Ordered By: Sabrina Manriquez on 11-19-2023 Eosinophils/100 WBC (Bld) 1.6 % . [facility] Erythrocyte distribution wid th Auto (RBC) [Ratio]Ordered By: Sabrina Manriquez on 11-19-2023 Erythrocyte distribution width (RBC) [Ratio] 13.7 % 12.0-14.8 [facility] Erythrocyte sedimentation ra te by Photometric methodOrdered By: Sabrina Manriquez on 11-19-2023 ESR Photometric method (Bld) [Velocity] 5 mm/hr 0-19 [facility] Erythrocytes [#/area] in Uri ne sediment by Automated countOrdered By: Sabrina Manriquez on 11-19-2023 RBC Auto (Urine sed) [#/Area] 0-1 [HPF] 0-4 [facility] Globulin Calc (S) [Mass/Vol] Ordered By: Sabrina Manriquez on 11-19-2023 Globulin (S) [Mass/Vol] 2.6 g/dL [facility] Glucose [Mass/volume] in Ser um or PlasmaOrdered By: Sabrina Manriquez on 11-19-2023 Glucose [Mass/Vol] 115 mg/dL 70-100 [facility] Comment on above: ADA recommended refe rence rangeRandom Glucose Reference Range is dependent on time and content of last meal. Glucose of more than 200 mg/dL in a nonstressed, ambulatory subject supports the diagnosis of Diabetes Mellitus. Hematocrit Auto (Bld) [Volum e fraction]Ordered By: Sabrina Manriquez on 11-19-2023 Hematocrit (Bld) [Volume fraction] 44.2 % 38.8-50.0 [facility] Hemoglobin [Mass/volume] in BloodOrdered By: Sabrina Manriquez on 11-19-2023 Hemoglobin (Bld) [Mass/Vol] 15.0 g/dL 13.0-17.0 [facility] Ketones Auto test strip (U) [Mass/Vol]Ordered By: Sabrina Manriquez on 11-19-2023 Ketones (U) [Mass/Vol] Negative Negative [facility] Laboratory - UrinalysisOrder ed By: Sabrina Manriquez on 11-19-2023 Hyaline casts LM Ql (Urine sed) None seen [LPF] 0-8 [facility] Leukocytes [#/area] in Urine sediment by Automated countOrdered By: Sabrina Manriquez on 11-19-2023 WBC Auto (Urine sed) [#/Area] 0-1 [HPF] 0-4 [facility] Leukocytes [#/volume] correc leah for nucleated erythrocytes in Blood by Automated counOrdered By: Sabrina Manriquez on 11-19-2023 WBC corrected for nucl RBC Auto (Bld) [#/Vol] 5.7 10*3/uL 4.1-10.5 [facility] Lymphocytes Auto (Bld) [#/Vo l]Ordered By: Sabrina Manriquez on 11-19-2023 Lymphocytes (Bld) [#/Vol] 1.1 10*3/uL 1.00-4.8 [facility] Lymphocytes/100 WBC Auto (Bl d)Ordered By: Sabrina Manriquez on 11-19-2023 Lymphocytes/100 WBC (Bld) 18.8 % . [facility] MCH Auto (RBC) [Entitic mass ]Ordered By: Sabrina Manriquez on 11-19-2023 MCH (RBC) [Entitic mass] 32.3 pg 27.5-35.2 [facility] MCHC Auto (RBC) [Mass/Vol]Or dered By: Sabrina Manriquez on 11-19-2023 MCHC (RBC) [Mass/Vol] 34.0 g/dL 32.5-35.6 [facility] MCV Auto (RBC) [Entitic vol] Ordered By: Sabrina Manriquez on 11-19-2023 MCV (RBC) [Entitic vol] 95.2 fL 83.5-101 [facility] Monocytes Auto (Bld) [#/Vol] Ordered By: Sabrina Manriquez on 11-19-2023 Monocytes (Bld) [#/Vol] 0.5 10*3/uL 0.0-0.8 [facility] Monocytes/100 WBC Auto (Bld) Ordered By: Sabrina Manriquez on 11-19-2023 Monocytes/100 WBC (Bld) 8.0 % . [facility] Neutrophils Auto (Bld) [#/Vo l]Ordered By: Sabrina Manriquez on 11-19-2023 Neutrophils (Bld) [#/Vol] 4.1 10*3/uL 1.8-7.7 [facility] Neutrophils/100 WBC Auto (Bl d)Ordered By: Sabrina Manriquez on 11-19-2023 Neutrophils/100 WBC (Bld) 70.9 % . [facility] Nitrite Test strip Ql (U)Ord ered By: Sabrina Manriquez on 11-19-2023 Nitrite Ql (U) Negative Negative [facility] No Panel InformationOrdered By: Sabrina Manriquez on 11-19-2023 Estimated GFR (CKD-EPI) > 60.0 mL/Min [facility] Creatinine Clearance (Chem N/A [facility] Nucleated erythrocytes [Pres ence] in Blood by Automated countOrdered By: Sabrina Manriquez on 11-19-2023 Nucleated RBC Auto Ql (Bld) 0.1 /100{WBC} 0-0.5 [facility] Platelet mean volume Auto (B ld) [Entitic vol]Ordered By: Sabrina Manriquez on 11-19-2023 Platelet mean volume (Bld) [Entitic vol] 9.3 fL 6.6-10.1 [facility] Platelets Auto (Bld) [#/Vol] Ordered By: Sabrina Manriquez on 11-19-2023 Platelets (Bld) [#/Vol] 220 10*3/uL 150-450 [facility] Potassium [Moles/volume] in Serum or PlasmaOrdered By: Sabrina Manriquez on 11-19-2023 Potassium [Moles/Vol] 4.4 mmol/L 3.5-5.1 [facility] Protein Auto test strip (U) [Mass/Vol]Ordered By: Sabrina Manriquez on 11-19-2023 Protein (U) [Mass/Vol] Negative Negative [facility] Protein [Mass/volume] in Ser um or PlasmaOrdered By: Sabrina Manriquez on 11-19-2023 Protein [Mass/Vol] 6.7 g/dL 6.4-8.9 [facility] RBC Auto (Bld) [#/Vol]Ordere d By: Sabrina Manriquez on 11-19-2023 RBC (Bld) [#/Vol] 4.64 10*6/uL 3.90-5.60 [facility] Serum or plasma albumin/glob ulin mass ratioOrdered By: Sabrina aMnriquez on 11-19-2023 Albumin/Globulin [Mass ratio] 1.6 {ratio} [facility] Serum or plasma anion gap de terminationOrdered By: Sabrina Manriquez on 11-19-2023 Anion gap [Moles/Vol] 9.2 mmol/L 6.0-15.0 [facility] Sodium [Moles/volume] in Ser um or PlasmaOrdered By: Sabrina Manriquez on 11-19-2023 Sodium [Moles/Vol] 140 mmol/L 136-145 [facility] Specific gravity Auto test s trip (U) [Rel density]Ordered By: Sabrina Manriquez on 11-19-2023 Specific gravity (U) [Rel density] 1.021 1.001-1.03 0 [facility] Urea nitrogen [Mass/volume] in Serum or PlasmaOrdered By: Sabrina Manriquez on 11-19-2023 Urea nitrogen [Mass/Vol] 17 mg/dL 01-15 [facility] Urine clarity by refractomet ry automatedOrdered By: Sabrina Manriquez on 11-19-2023 Clarity Refractometry automated (U) Clear Clear [facility] Urine glucose measurement by automated test strip (mass/volume)Ordered By: Sabrina Manriquez on 11-19-2023 Glucose Auto test strip (U) [Mass/Vol] Normal mg/dL Normal [facility] Urine hemoglobin detection b y automated test stripOrdered By: Sabrina Manriquez on 11-19-2023 Hemoglobin Auto test strip Ql (U) Negative Negative [facility] Urine leukocyte esterase det ection by automated test stripOrdered By: Sabrina Manriquez on 11-19-2023 Leukocyte esterase Auto test strip Ql (U) Negative Negative [facility] Urobilinogen Auto test strip (U) [Mass/Vol]Ordered By: Sabrina Manriquez on 11-19-2023 Urobilinogen (U) [Mass/Vol] Normal mg/dL Normal [facility] WBC Auto (Bld) [#/Vol]Ordere d By: Sabrina Manriquez on 11-19-2023 WBC (Bld) [#/Vol] 5.7 10*3/uL 4.1-10.5 [facility] pH Auto test strip (U)Ordere d By: Sabrina Manriquez on 11-19-2023 pH (U) 5.5 [pH] 5.0-9.0 [facility] Alanine aminotransferase [En zymatic activity/volume] in Serum or PlasmaOrdered By: Sabrina Manriquez on 07-18-2023 ALT [Catalytic activity/Vol] 32 U/L [facility] Albumin [Mass/volume] in Ser um or Plasma by Bromocresol green (BCG) dye binding methoOrdered By: Sabrina Manriquez on 07-18-2023 Albumin BCG dye [Mass/Vol] 4.3 g/dL 3.5-5.7 [facility] Alkaline phosphatase [Enzyma tic activity/volume] in Serum or PlasmaOrdered By: Sabrina Manriquez on 07-18-2023 ALP [Catalytic activity/Vol] 78 U/L 34-104 [facility] Aspartate aminotransferase [ Enzymatic activity/volume] in Serum or PlasmaOrdered By: Sabrina Manriquez on 07-18-2023 AST [Catalytic activity/Vol] 28 U/L 13-39 [facility] Automated erythrocytes count in urine sediment (number/area)Ordered By: Sabrina Manriquez on 07-18-2023 RBC Auto (Urine sed) [#/Area] 0-1 [HPF] 0-4 [facility] Automated leukocytes count i n urine sediment (number/area)Ordered By: Sabrina Manriquez on 07-18-2023 WBC Auto (Urine sed) [#/Area] 0-1 [HPF] 0-4 [facility] Basophils Auto (Bld) [#/Vol] Ordered By: Sabrina Manriquez on 07-18-2023 Basophils (Bld) [#/Vol] 0.1 10*3/uL 0.0-0.2 [facility] Basophils/100 WBC Auto (Bld) Ordered By: Sabrina Manriquez on 07-18-2023 Basophils/100 WBC (Bld) 0.8 % . [facility] Bilirubin Test strip Ql (U)O rdered By: Sabrina Manriquez on 07-18-2023 Bilirubin Ql (U) Negative Negative [facility] Bilirubin.total [Mass/volume ] in Serum or PlasmaOrdered By: Sabrina Manriquez on 07-18-2023 Bilirubin [Mass/Vol] 0.5 mg/dL 0.3-1.0 [facility] C reactive protein [Mass/vol ume] in Serum or PlasmaOrdered By: Sabrina Manriquez on 07-18-2023 CRP [Mass/Vol] < 0.5 mg/dL 0.0-0.5 [facility] Calcium [Mass/volume] in Ser um or PlasmaOrdered By: Sabrina Manriquez on 07-18-2023 Calcium [Mass/Vol] 9.2 mg/dL 8.6-10.3 [facility] Carbon dioxide, total [Moles /volume] in Serum or PlasmaOrdered By: Sabrina Manriquez on 07-18-2023 CO2 [Moles/Vol] 30.1 mmol/L 21.0-31.0 [facility] Chloride [Moles/volume] in S lenny or PlasmaOrdered By: Sabrina Manriquez on 07-18-2023 Chloride [Moles/Vol] 105 mmol/L 98-107 [facility] Color Auto (U)Ordered By: Emily Montiel on 07-18-2023 Color (U) Yellow Yellow [facility] Creatinine [Mass/volume] in Serum or PlasmaOrdered By: Sabrina Manriquez on 07-18-2023 Creatinine [Mass/Vol] 0.93 mg/dL 0.70-1.30 [facility] Eosinophils Auto (Bld) [#/Vo l]Ordered By: Sabrina Manriquez on 07-18-2023 Eosinophils (Bld) [#/Vol] 0.0 10*3/uL 0.0-0.45 [facility] Eosinophils/100 WBC Auto (Bl d)Ordered By: Sabrina Manriquez on 07-18-2023 Eosinophils/100 WBC (Bld) 0.7 % . [facility] Erythrocyte distribution wid th Auto (RBC) [Ratio]Ordered By: Sabrina Manriquez on 07-18-2023 Erythrocyte distribution width (RBC) [Ratio] 13.9 % 12.0-14.8 [facility] Erythrocyte sedimentation ra te by Photometric methodOrdered By: Sabrina Manriquez on 07-18-2023 ESR Photometric method (Bld) [Velocity] 7 mm/hr 0-19 [facility] Globulin Calc (S) [Mass/Vol] Ordered By: Sabrina Manriquez on 07-18-2023 Globulin (S) [Mass/Vol] 2.5 g/dL [facility] Glucose [Mass/volume] in Ser um or PlasmaOrdered By: Sabrina Manriquez on 07-18-2023 Glucose [Mass/Vol] 89 mg/dL 70-100 [facility] Comment on above: ADA recommended refe rence rangeRandom Glucose Reference Range is dependent on time and content of last meal. Glucose of more than 200 mg/dL in a nonstressed, ambulatory subject supports the diagnosis of Diabetes Mellitus. Hematocrit Auto (Bld) [Volum e fraction]Ordered By: Sabrina Manriquez on 07-18-2023 Hematocrit (Bld) [Volume fraction] 44.3 % 38.8-50.0 [facility] Hemoglobin [Mass/volume] in BloodOrdered By: Sabrina Manriquez on 07-18-2023 Hemoglobin (Bld) [Mass/Vol] 15.2 g/dL 13.0-17.0 [facility] Ketones Auto test strip (U) [Mass/Vol]Ordered By: Sabrina Manriquez on 07-18-2023 Ketones (U) [Mass/Vol] Trace Negative [facility] Laboratory - UrinalysisOrder ed By: Sabrina Manriquez on 07-18-2023 Hyaline casts LM Ql (Urine sed) None seen [LPF] 0-8 [facility] Leukocytes [#/volume] correc leah for nucleated erythrocytes in Blood by Automated counOrdered By: Sabrina Manriquez on 07-18-2023 WBC corrected for nucl RBC Auto (Bld) [#/Vol] 6.3 10*3/uL 4.1-10.5 [facility] Lymphocytes Auto (Bld) [#/Vo l]Ordered By: Sabrina Manriquez on 07-18-2023 Lymphocytes (Bld) [#/Vol] 0.9 10*3/uL 1.00-4.8 [facility] Lymphocytes/100 WBC Auto (Bl d)Ordered By: Sabrina Manriquez on 07-18-2023 Lymphocytes/100 WBC (Bld) 15.1 % . [facility] MCH Auto (RBC) [Entitic mass ]Ordered By: Sabrina Manriquez on 07-18-2023 MCH (RBC) [Entitic mass] 32.3 pg 27.5-35.2 [facility] MCHC Auto (RBC) [Mass/Vol]Or dered By: Sabrina Manriquez on 07-18-2023 MCHC (RBC) [Mass/Vol] 34.2 g/dL 32.5-35.6 [facility] MCV Auto (RBC) [Entitic vol] Ordered By: Sabrina Manriquez on 07-18-2023 MCV (RBC) [Entitic vol] 94.4 fL 83.5-101 [facility] Monocytes Auto (Bld) [#/Vol] Ordered By: Sabrina Manriquez on 07-18-2023 Monocytes (Bld) [#/Vol] 0.6 10*3/uL 0.0-0.8 [facility] Monocytes/100 WBC Auto (Bld) Ordered By: Sabrina Manriquez on 07-18-2023 Monocytes/100 WBC (Bld) 8.9 % . [facility] Neutrophils Auto (Bld) [#/Vo l]Ordered By: Sabrina Manriquez on 07-18-2023 Neutrophils (Bld) [#/Vol] 4.7 10*3/uL 1.8-7.7 [facility] Neutrophils/100 WBC Auto (Bl d)Ordered By: Sabrina Manriquez on 07-18-2023 Neutrophils/100 WBC (Bld) 74.5 % . [facility] Nitrite Test strip Ql (U)Ord ered By: Sabrina Manriquez on 07-18-2023 Nitrite Ql (U) Negative Negative [facility] No Panel InformationOrdered By: Sabrina Manriquez on 07-18-2023 Estimated GFR (CKD-EPI) > 60.0 mL/Min [facility] Creatinine Clearance (Chem N/A [facility] Nucleated erythrocytes [Pres ence] in Blood by Automated countOrdered By: Sabrina Manriquez on 07-18-2023 Nucleated RBC Auto Ql (Bld) 0.1 /100{WBC} 0-0.5 [facility] Platelet mean volume Auto (B ld) [Entitic vol]Ordered By: Sabrina Manriquez on 07-18-2023 Platelet mean volume (Bld) [Entitic vol] 8.8 fL 6.6-10.1 [facility] Platelets Auto (Bld) [#/Vol] Ordered By: Sabrina Manriquez on 07-18-2023 Platelets (Bld) [#/Vol] 235 10*3/uL 150-450 [facility] Potassium [Moles/volume] in Serum or PlasmaOrdered By: Sabrina Manriquez on 07-18-2023 Potassium [Moles/Vol] 4.1 mmol/L 3.5-5.1 [facility] Protein Auto test strip (U) [Mass/Vol]Ordered By: Sabrina Manriquez on 07-18-2023 Protein (U) [Mass/Vol] Negative Negative [facility] Protein [Mass/volume] in Ser um or PlasmaOrdered By: Sabrina Manriquez on 07-18-2023 Protein [Mass/Vol] 6.8 g/dL 6.4-8.9 [facility] RBC Auto (Bld) [#/Vol]Ordere d By: Sabrina Manriquez on 07-18-2023 RBC (Bld) [#/Vol] 4.69 10*6/uL 3.90-5.60 [facility] Serum or plasma albumin/glob ulin mass ratioOrdered By: Sabrina Manriquez on 07-18-2023 Albumin/Globulin [Mass ratio] 1.7 {ratio} [facility] Serum or plasma anion gap de terminationOrdered By: Sabrina Manriquez on 07-18-2023 Anion gap [Moles/Vol] 9.0 mmol/L 6.0-15.0 [facility] Sodium [Moles/volume] in Ser um or PlasmaOrdered By: Sabrina Manriquez on 07-18-2023 Sodium [Moles/Vol] 140 mmol/L 136-145 [facility] Specific gravity Auto test s trip (U) [Rel density]Ordered By: Sabrina Manriquez on 07-18-2023 Specific gravity (U) [Rel density] 1.023 1.001-1.03 0 [facility] Squamous epithelial cells de tection in urine sediment by light microscopyOrdered By: Sabrina Manriquez on 07-18-2023 Epithelial cells.squamous LM Ql (Urine sed) None seen [HPF] 0-2 [facility] Urea nitrogen [Mass/volume] in Serum or PlasmaOrdered By: Sabrina Manriquez on 07-18-2023 Urea nitrogen [Mass/Vol] 22 mg/dL 7 [facility] Urine bacteria detection by automated methodOrdered By: Sabrina Manriquez on 07-18-2023 Bacteria Auto Ql (U) None seen None Seen [facility] Urine clarity by refractomet ry automatedOrdered By: Sabrina Manriquez on 07-18-2023 Clarity Refractometry automated (U) Clear Clear [facility] Urine glucose measurement by automated test strip (mass/volume)Ordered By: Sabrina Manriquez on 07-18-2023 Glucose Auto test strip (U) [Mass/Vol] Normal mg/dL Normal [facility] Urine hemoglobin detection b y automated test stripOrdered By: Sabrina Manriquez on 07-18-2023 Hemoglobin Auto test strip Ql (U) Negative Negative [facility] Urine leukocyte esterase det ection by automated test stripOrdered By: Sabrina Manriquez on 07-18-2023 Leukocyte esterase Auto test strip Ql (U) Negative Negative [facility] Urobilinogen Auto test strip (U) [Mass/Vol]Ordered By: Sabrina Manriquez on 07-18-2023 Urobilinogen (U) [Mass/Vol] Normal mg/dL Normal [facility] WBC Auto (Bld) [#/Vol]Ordere d By: Sabrina Manriquez on 07-18-2023 WBC (Bld) [#/Vol] 6.3 10*3/uL 4.1-10.5 [facility] pH Auto test strip (U)Ordere d By: Sabrina Manriquez on 07-18-2023 pH (U) 5.5 [pH] 5.0-9.0 [facility] CNOVon 03-12-2023 CNOV Office Visit (ORFTMN ) -------- JAY CARR ([id number]) 1960 M Date Time Provider Department 03/12/23 [...] No PCP: Dania Armstrong MD [address] [facility] [id number] FELLOW / RESIDENT: No fellow or resident assisted in th (more content not included)... Normal [facility] Alanine aminotransferase [En zymatic activity/volume] in Serum or PlasmaOrdered By: Hudson De Leon on 02-19-2023 ALT [Catalytic activity/Vol] 24 U/L 7-52 [facility] Albumin [Mass/volume] in Ser um or Plasma by Bromocresol green (BCG) dye binding methoOrdered By: Hudson De Leon on 02-19-2023 Albumin BCG dye [Mass/Vol] 4.1 g/dL 3.5-5.7 [facility] Alkaline phosphatase [Enzyma tic activity/volume] in Serum or PlasmaOrdered By: Hudson De Leon on 02-19-2023 ALP [Catalytic activity/Vol] 90 U/L 34-104 [facility] Aspartate aminotransferase [ Enzymatic activity/volume] in Serum or PlasmaOrdered By: Hudson De Leon on 02-19-2023 AST [Catalytic activity/Vol] 27 U/L 13-39 [facility] Automated erythrocytes count in urine sediment (number/area)Ordered By: Hudson De Leon on 02-19-2023 RBC Auto (Urine sed) [#/Area] 0-1 [HPF] 0-4 [facility] Automated leukocytes count i n urine sediment (number/area)Ordered By: Hudson De Leon on 02-19-2023 WBC Auto (Urine sed) [#/Area] None seen [HPF] 0-4 [facility] Basophils Auto (Bld) [#/Vol] Ordered By: Hudson De Leon on 02-19-2023 Basophils (Bld) [#/Vol] 0.0 10*3/uL 0.0-0.2 [facility] Basophils/100 WBC Auto (Bld) Ordered By: Hudson De Leon on 02-19-2023 Basophils/100 WBC (Bld) 0.7 % . [facility] Bilirubin Test strip Ql (U)O rdered By: Hudson De Leon on 02-19-2023 Bilirubin Ql (U) Negative Negative [facility] Bilirubin.total [Mass/volume ] in Serum or PlasmaOrdered By: Hudson De Leon on 02-19-2023 Bilirubin [Mass/Vol] 0.6 mg/dL 0.3-1.0 [facility] Calcium [Mass/volume] in Ser um or PlasmaOrdered By: Hudson De Leon on 02-19-2023 Calcium [Mass/Vol] 9.0 mg/dL 8.6-10.3 [facility] Carbon dioxide, total [Moles /volume] in Serum or PlasmaOrdered By: Hudson De Leon on 02-19-2023 CO2 [Moles/Vol] 29.6 mmol/L 21.0-31.0 [facility] Chloride [Moles/volume] in S lenny or PlasmaOrdered By: Hudson De Leon on 02-19-2023 Chloride [Moles/Vol] 105 mmol/L 98-107 [facility] Color Auto (U)Ordered By: Jessica De Leon on 02-19-2023 Color (U) Yellow Yellow [facility] Creatinine [Mass/volume] in Serum or PlasmaOrdered By: Hudson De Leon on 02-19-2023 Creatinine [Mass/Vol] 0.95 mg/dL 0.70-1.30 [facility] Eosinophils Auto (Bld) [#/Vo l]Ordered By: Hudson De Leon on 02-19-2023 Eosinophils (Bld) [#/Vol] 0.0 10*3/uL 0.0-0.45 [facility] Eosinophils/100 WBC Auto (Bl d)Ordered By: Hudson De Leon on 02-19-2023 Eosinophils/100 WBC (Bld) 1.0 % . [facility] Erythrocyte distribution wid th Auto (RBC) [Ratio]Ordered By: Hudson De Leon on 02-19-2023 Erythrocyte distribution width (RBC) [Ratio] 13.6 % 12.0-14.8 [facility] Erythrocyte sedimentation ra te by Photometric methodOrdered By: Hudosn De Leon on 02-19-2023 ESR Photometric method (Bld) [Velocity] 7 mm/hr 0-19 [facility] Globulin Calc (S) [Mass/Vol] Ordered By: Hudson De Leon on 02-19-2023 Globulin (S) [Mass/Vol] 2.6 g/dL [facility] Glucose [Mass/volume] in Ser um or PlasmaOrdered By: Hudson De Leon on 02-19-2023 Glucose [Mass/Vol] 108 mg/dL 70-100 [facility] Comment on above: ADA recommended refe rence rangeRandom Glucose Reference Range is dependent on time and content of last meal. Glucose of more than 200 mg/dL in a nonstressed, ambulatory subject supports the diagnosis of Diabetes Mellitus. Hematocrit Auto (Bld) [Volum e fraction]Ordered By: Hudson De Leon on 02-19-2023 Hematocrit (Bld) [Volume fraction] 42.3 % 38.8-50.0 [facility] Hemoglobin [Mass/volume] in BloodOrdered By: Hudson De Leon on 02-19-2023 Hemoglobin (Bld) [Mass/Vol] 14.3 g/dL 13.0-17.0 [facility] Ketones Auto test strip (U) [Mass/Vol]Ordered By: Hudson De Leon on 02-19-2023 Ketones (U) [Mass/Vol] Negative Negative [facility] Laboratory - UrinalysisOrder ed By: Hudson De Leon on 02-19-2023 Hyaline casts LM Ql (Urine sed) None seen [LPF] 0-8 [facility] Leukocytes [#/volume] correc leah for nucleated erythrocytes in Blood by Automated counOrdered By: Hudson De Leon on 02-19-2023 WBC corrected for nucl RBC Auto (Bld) [#/Vol] 4.7 10*3/uL 4.1-10.5 [facility] Lymphocytes Auto (Bld) [#/Vo l]Ordered By: Hudson De Leon on 02-19-2023 Lymphocytes (Bld) [#/Vol] 0.9 10*3/uL 1.00-4.8 [facility] Lymphocytes/100 WBC Auto (Bl d)Ordered By: Hudson De Leon on 02-19-2023 Lymphocytes/100 WBC (Bld) 18.5 % . [facility] MCH Auto (RBC) [Entitic mass ]Ordered By: Hudson De Leon on 02-19-2023 MCH (RBC) [Entitic mass] 31.5 pg 27.5-35.2 [facility] MCHC Auto (RBC) [Mass/Vol]Or dered By: Hudson De Leon on 02-19-2023 MCHC (RBC) [Mass/Vol] 33.9 g/dL 32.5-35.6 [facility] MCV Auto (RBC) [Entitic vol] Ordered By: Hudson De Leon on 02-19-2023 MCV (RBC) [Entitic vol] 93.0 fL 83.5-101 [facility] Monocytes Auto (Bld) [#/Vol] Ordered By: Hudson De Leon on 02-19-2023 Monocytes (Bld) [#/Vol] 0.4 10*3/uL 0.0-0.8 [facility] Monocytes/100 WBC Auto (Bld) Ordered By: Hudson De Leon on 02-19-2023 Monocytes/100 WBC (Bld) 8.1 % . [facility] Neutrophils Auto (Bld) [#/Vo l]Ordered By: Hudson De Leon on 02-19-2023 Neutrophils (Bld) [#/Vol] 3.4 10*3/uL 1.8-7.7 [facility] Neutrophils/100 WBC Auto (Bl d)Ordered By: Hudson De Leon on 02-19-2023 Neutrophils/100 WBC (Bld) 71.7 % . [facility] Nitrite Test strip Ql (U)Ord ered By: Hudson De Leon on 02-19-2023 Nitrite Ql (U) Negative Negative [facility] No Panel InformationOrdered By: Hudson De Leon on 02-19-2023 Estimated GFR (CKD-EPI) > 60.0 mL/Min [facility] Creatinine Clearance (Chem N/A [facility] Nucleated erythrocytes [Pres ence] in Blood by Automated countOrdered By: Hudson De Leon on 02-19-2023 Nucleated RBC Auto Ql (Bld) 0.1 /100{WBC} 0-0.5 [facility] Platelet mean volume Auto (B ld) [Entitic vol]Ordered By: Hudson De Leon on 02-19-2023 Platelet mean volume (Bld) [Entitic vol] 9.0 fL 6.6-10.1 [facility] Platelets Auto (Bld) [#/Vol] Ordered By: Hudson De Leon on 02-19-2023 Platelets (Bld) [#/Vol] 198 10*3/uL 150-450 [facility] Potassium [Moles/volume] in Serum or PlasmaOrdered By: Hudson De Leon on 02-19-2023 Potassium [Moles/Vol] 4.0 mmol/L 3.5-5.1 [facility] Protein Auto test strip (U) [Mass/Vol]Ordered By: Hudson De Leon on 02-19-2023 Protein (U) [Mass/Vol] Negative Negative [facility] Protein [Mass/volume] in Ser um or PlasmaOrdered By: Hudson De Leon on 02-19-2023 Protein [Mass/Vol] 6.7 g/dL 6.4-8.9 [facility] RBC Auto (Bld) [#/Vol]Ordere d By: Hudson De Leon on 02-19-2023 RBC (Bld) [#/Vol] 4.55 10*6/uL 3.90-5.60 [facility] Serum or plasma albumin/glob ulin mass ratioOrdered By: Hudson De Leon on 02-19-2023 Albumin/Globulin [Mass ratio] 1.6 {ratio} [facility] Serum or plasma anion gap de terminationOrdered By: Hudson De Leon on 02-19-2023 Anion gap [Moles/Vol] 9.4 mmol/L 6.0-15.0 [facility] Sodium [Moles/volume] in Ser um or PlasmaOrdered By: Hudson De Leon on 02-19-2023 Sodium [Moles/Vol] 140 mmol/L 136-145 [facility] Specific gravity Auto test s trip (U) [Rel density]Ordered By: Hudson De Leon on 02-19-2023 Specific gravity (U) [Rel density] 1.018 1.001-1.03 0 [facility] Squamous epithelial cells de tection in urine sediment by light microscopyOrdered By: Hudson De Leon on 02-19-2023 Epithelial cells.squamous LM Ql (Urine sed) None seen [HPF] 0-2 [facility] Urea nitrogen [Mass/volume] in Serum or PlasmaOrdered By: Hudson De Leon on 02-19-2023 Urea nitrogen [Mass/Vol] 16 mg/dL 7- [facility] Urine bacteria detection by automated methodOrdered By: Hudson De Leon on 02-19-2023 Bacteria Auto Ql (U) None seen None Seen [facility] Urine clarity by refractomet ry automatedOrdered By: Hudson De Leon on 02-19-2023 Clarity Refractometry automated (U) Clear Clear [facility] Urine glucose measurement by automated test strip (mass/volume)Ordered By: Hudson De Leon on 02-19-2023 Glucose Auto test strip (U) [Mass/Vol] Normal mg/dL Normal [facility] Urine hemoglobin detection b y automated test stripOrdered By: Hudson De Leon on 02-19-2023 Hemoglobin Auto test strip Ql (U) Negative Negative [facility] Urine leukocyte esterase det ection by automated test stripOrdered By: Hudson De Leon on 02-19-2023 Leukocyte esterase Auto test strip Ql (U) Negative Negative [facility] Urobilinogen Auto test strip (U) [Mass/Vol]Ordered By: Hudson De Leon on 02-19-2023 Urobilinogen (U) [Mass/Vol] Normal mg/dL Normal [facility] WBC Auto (Bld) [#/Vol]Ordere d By: Hudson De Leon on 02-19-2023 WBC (Bld) [#/Vol] 4.7 10*3/uL 4.1-10.5 [facility] pH Auto test strip (U)Ordere d By: Hudson De Leon on 02-19-2023 pH (U) 5.5 [pH] 5.0-9.0 [facility] Alanine aminotransferase [En zymatic activity/volume] in Serum or PlasmaOrdered By: Hudson De Leon on 10-15-2022 ALT [Catalytic activity/Vol] 19 U/L 7-52 [facility] Albumin [Mass/volume] in Ser um or Plasma by Bromocresol green (BCG) dye binding methoOrdered By: Hudson De Leon on 10-15-2022 Albumin BCG dye [Mass/Vol] 4.1 g/dL 3.5-5.7 [facility] Alkaline phosphatase [Enzyma tic activity/volume] in Serum or PlasmaOrdered By: Hudson De Leon on 10-15-2022 ALP [Catalytic activity/Vol] 89 U/L 34-104 [facility] Aspartate aminotransferase [ Enzymatic activity/volume] in Serum or PlasmaOrdered By: Hudsno De Leon on 10-15-2022 AST [Catalytic activity/Vol] 19 U/L 13-39 [facility] Automated erythrocytes count in urine sediment (number/area)Ordered By: Hudson De Leon on 10-15-2022 RBC Auto (Urine sed) [#/Area] 1-2 [HPF] 0-4 [facility] Automated leukocytes count i n urine sediment (number/area)Ordered By: Hudson De Leon on 10-15-2022 WBC Auto (Urine sed) [#/Area] None seen [HPF] 0-4 [facility] Basophils Auto (Bld) [#/Vol] Ordered By: Hudson De Leon on 10-15-2022 Basophils (Bld) [#/Vol] 0.0 10*3/uL 0.0-0.2 [facility] Basophils/100 WBC Auto (Bld) Ordered By: Hudson De Leon on 10-15-2022 Basophils/100 WBC (Bld) 0.5 % . [facility] Bilirubin Test strip Ql (U)O rdered By: Hudson De Leon on 10-15-2022 Bilirubin Ql (U) Negative Negative [facility] Bilirubin.total [Mass/volume ] in Serum or PlasmaOrdered By: Hudson De Leon on 10-15-2022 Bilirubin [Mass/Vol] 0.6 mg/dL 0.3-1.0 [facility] Calcium [Mass/volume] in Ser um or PlasmaOrdered By: Hudson De Leon on 10-15-2022 Calcium [Mass/Vol] 8.5 mg/dL 8.6-10.3 [facility] Carbon dioxide, total [Moles /volume] in Serum or PlasmaOrdered By: Hudson De Leon on 10-15-2022 CO2 [Moles/Vol] 27.8 mmol/L 21.0-31.0 [facility] Chloride [Moles/volume] in S lenny or PlasmaOrdered By: Hudson De Leon on 10-15-2022 Chloride [Moles/Vol] 106 mmol/L 98-107 [facility] Color Auto (U)Ordered By: Jessica ttdwain Haley on 10-15-2022 Color (U) Yellow Yellow [facility] Creatinine [Mass/volume] in Serum or PlasmaOrdered By: Hudson De Leon on 10-15-2022 Creatinine [Mass/Vol] 1.09 mg/dL 0.70-1.30 [facility] Eosinophils Auto (Bld) [#/Vo l]Ordered By: Hudson De Leon on 10-15-2022 Eosinophils (Bld) [#/Vol] 0.1 10*3/uL 0.0-0.45 [facility] Eosinophils/100 WBC Auto (Bl d)Ordered By: Hudson De Leon on 10-15-2022 Eosinophils/100 WBC (Bld) 1.6 % . [facility] Erythrocyte distribution wid th Auto (RBC) [Ratio]Ordered By: Hudson De Leon on 10-15-2022 Erythrocyte distribution width (RBC) [Ratio] 14.2 % 12.0-14.8 [facility] Erythrocyte sedimentation ra te by Photometric methodOrdered By: Hudson De Leon on 10-15-2022 ESR Photometric method (Bld) [Velocity] 6 mm/hr 0-19 [facility] Globulin Calc (S) [Mass/Vol] Ordered By: Hudson De Leon on 10-15-2022 Globulin (S) [Mass/Vol] 2.8 g/dL [facility] Glucose [Mass/volume] in Ser um or PlasmaOrdered By: Hudson De Leon on 10-15-2022 Glucose [Mass/Vol] 139 mg/dL 70-100 [facility] Comment on above: ADA recommended refe rence rangeRandom Glucose Reference Range is dependent on time and content of last meal. Glucose of more than 200 mg/dL in a nonstressed, ambulatory subject supports the diagnosis of Diabetes Mellitus. Hematocrit Auto (Bld) [Volum e fraction]Ordered By: Hudson De Leon on 10-15-2022 Hematocrit (Bld) [Volume fraction] 42.6 % 38.8-50.0 [facility] Hemoglobin [Mass/volume] in BloodOrdered By: Hudson De Leon on 10-15-2022 Hemoglobin (Bld) [Mass/Vol] 14.4 g/dL 13.0-17.0 [facility] Ketones Auto test strip (U) [Mass/Vol]Ordered By: Hudson De Leon on 10-15-2022 Ketones (U) [Mass/Vol] Negative Negative [facility] Laboratory - UrinalysisOrder ed By: Hudson De Leon on 10-15-2022 Hyaline casts LM Ql (Urine sed) None seen [LPF] 0-8 [facility] Leukocytes [#/volume] correc leah for nucleated erythrocytes in Blood by Automated counOrdered By: Hudson De Leon on 10-15-2022 WBC corrected for nucl RBC Auto (Bld) [#/Vol] 4.9 10*3/uL 4.1-10.5 [facility] Lymphocytes Auto (Bld) [#/Vo l]Ordered By: Hudson De Leon on 10-15-2022 Lymphocytes (Bld) [#/Vol] 1.0 10*3/uL 1.00-4.8 [facility] Lymphocytes/100 WBC Auto (Bl d)Ordered By: Hudson De Leon on 10-15-2022 Lymphocytes/100 WBC (Bld) 20.0 % . [facility] MCH Auto (RBC) [Entitic mass ]Ordered By: Hudson De Leon on 10-15-2022 MCH (RBC) [Entitic mass] 31.2 pg 27.5-35.2 [facility] MCHC Auto (RBC) [Mass/Vol]Or dered By: Hudson De Leon on 10-15-2022 MCHC (RBC) [Mass/Vol] 33.7 g/dL 32.5-35.6 [facility] MCV Auto (RBC) [Entitic vol] Ordered By: Hudson De Leon on 10-15-2022 MCV (RBC) [Entitic vol] 92.8 fL 83.5-101 [facility] Monocytes Auto (Bld) [#/Vol] Ordered By: Hudson De Leon on 10-15-2022 Monocytes (Bld) [#/Vol] 0.4 10*3/uL 0.0-0.8 [facility] Monocytes/100 WBC Auto (Bld) Ordered By: Hudson De Leon on 10-15-2022 Monocytes/100 WBC (Bld) 8.6 % . [facility] Neutrophils Auto (Bld) [#/Vo l]Ordered By: Hudson De Leon on 10-15-2022 Neutrophils (Bld) [#/Vol] 3.4 10*3/uL 1.8-7.7 [facility] Neutrophils/100 WBC Auto (Bl d)Ordered By: Hudson De Leon on 10-15-2022 Neutrophils/100 WBC (Bld) 69.3 % . [facility] Nitrite Test strip Ql (U)Ord ered By: Hudson De Leon on 10-15-2022 Nitrite Ql (U) Negative Negative [facility] No Panel InformationOrdered By: Hudson De Leon on 10-15-2022 Estimated GFR (CKD-EPI) > 60.0 mL/Min [facility] Creatinine Clearance (Chem N/A [facility] Nucleated erythrocytes [Pres ence] in Blood by Automated countOrdered By: Hudson De Leon on 10-15-2022 Nucleated RBC Auto Ql (Bld) 0.1 /100{WBC} 0-0.5 [facility] Platelet mean volume Auto (B ld) [Entitic vol]Ordered By: Hudson De Leon on 10-15-2022 Platelet mean volume (Bld) [Entitic vol] 9.1 fL 6.6-10.1 [facility] Platelets Auto (Bld) [#/Vol] Ordered By: Hudson De Leon on 10-15-2022 Platelets (Bld) [#/Vol] 196 10*3/uL 150-450 [facility] Potassium [Moles/volume] in Serum or PlasmaOrdered By: Hudson De Leon on 10-15-2022 Potassium [Moles/Vol] 4.4 mmol/L 3.5-5.1 [facility] Protein Auto test strip (U) [Mass/Vol]Ordered By: Hudson De Leon on 10-15-2022 Protein (U) [Mass/Vol] Negative Negative [facility] Protein [Mass/volume] in Ser um or PlasmaOrdered By: Hudson De Leon on 10-15-2022 Protein [Mass/Vol] 6.9 g/dL 6.4-8.9 [facility] RBC Auto (Bld) [#/Vol]Ordere d By: Hudson De Leon on 10-15-2022 RBC (Bld) [#/Vol] 4.60 10*6/uL 3.90-5.60 [facility] Serum or plasma albumin/glob ulin mass ratioOrdered By: Hudson De Leon on 10-15-2022 Albumin/Globulin [Mass ratio] 1.5 {ratio} [facility] Serum or plasma anion gap de terminationOrdered By: Hudson De Leon on 10-15-2022 Anion gap [Moles/Vol] 9.6 mmol/L 6.0-15.0 [facility] Sodium [Moles/volume] in Ser um or PlasmaOrdered By: Hudson De Leon on 10-15-2022 Sodium [Moles/Vol] 139 mmol/L 136-145 [facility] Specific gravity Auto test s trip (U) [Rel density]Ordered By: Hudson De Leon on 10-15-2022 Specific gravity (U) [Rel density] 1.022 1.001-1.03 0 [facility] Squamous epithelial cells de tection in urine sediment by light microscopyOrdered By: Hudson De Leon on 10-15-2022 Epithelial cells.squamous LM Ql (Urine sed) None seen [HPF] 0-2 [facility] Urea nitrogen [Mass/volume] in Serum or PlasmaOrdered By: Hudson De Leon on 10-15-2022 Urea nitrogen [Mass/Vol] 24 mg/dL 7-25 [facility] Urine bacteria detection by automated methodOrdered By: Hudson De Leon on 10-15-2022 Bacteria Auto Ql (U) None seen None Seen [facility] Urine clarity by refractomet ry automatedOrdered By: Hudson De Leon on 10-15-2022 Clarity Refractometry automated (U) Clear Clear [facility] Urine glucose measurement by automated test strip (mass/volume)Ordered By: Hudson De Leon on 10-15-2022 Glucose Auto test strip (U) [Mass/Vol] Normal mg/dL Normal [facility] Urine hemoglobin detection b y automated test stripOrdered By: Hudson De Leon on 10-15-2022 Hemoglobin Auto test strip Ql (U) Negative Negative [facility] Urine leukocyte esterase det ection by automated test stripOrdered By: Hudson De Leon on 10-15-2022 Leukocyte esterase Auto test strip Ql (U) Negative Negative [facility] Urobilinogen Auto test strip (U) [Mass/Vol]Ordered By: Hudson De Leon on 10-15-2022 Urobilinogen (U) [Mass/Vol] Normal mg/dL Normal [facility] WBC Auto (Bld) [#/Vol]Ordere d By: Hudson De Leon on 10-15-2022 WBC (Bld) [#/Vol] 4.9 10*3/uL 4.1-10.5 [facility] pH Auto test strip (U)Ordere d By: Hudson De Leon on 10-15-2022 pH (U) 5.5 [pH] 5.0-9.0 [facility] Covid-19 PCR (CVDTB)on 08-23 SARS-CoV-2 (COVID-19) RNA LU+probe Ql (Unsp spec) Not detected Normal NOT DETECTED [facility] Comment on above: Result Comment: This test is not yet approved or cleared by the [place] FDA. When there are no FDA-approved or cleared tests available, and other criteria are met, FDA can make tests available under an emergency access mechanism called an Emergency Use Authorization (EUA). The EUA for this test is supported by the [place] of Health and Human Service's (HHS's) declaration [...] By: #### I NSULIN #### [facility] [address], [place] [address] Dr. Carolyn King SYMPTOMATIC COVID-19 ANTIGEN on 09-11-2022 EUA Statement SEE BELOW Normal [facility] Comment on above: Result Comment: This test [...] By: #### C VDAGS #### [facility] [address] [place], [place] [id number] Dr. Carolyn King SARS-CoV-2 (COVID-19) RNA LU+probe Ql (Unsp spec) Negative Normal NEGATIVE [facility] Comment on above: Performed By: #### C VDAGS #### [facility] [address] [place], [place] [id number] Dr. Carolyn King CT FOOT RT WO [...] by: LAURY ZEPEDA Date: 2022-08-31 08:09 Normal [facility] US SINGLE QUAD RT UPPERon US [...] by: LAURY ZEPEDA Date: 2022-08-31 07:41 Normal [facility] POINT OF CARE GLUCOSEon 05-24 Glucose [Mass/Vol] 125 mg/dL Critically high 74-[address] [facility] Comment on above: Performed By: #### I NSULIN #### [facility] [address] [address] [address] Carolyn King Glucose [Mass/Vol] 105 mg/dL Normal 74-106 [facility] Comment on above: Performed By: #### I NSULIN #### [facility] [address] [address] [address] Carolyn King XR FOOT RT 2Von [...] Date: 2022-06-07 14:29 Normal [facility] Covid-19 PCR (CVDTBH)on 05-24 SARS-CoV-2 (COVID-19) RNA LU+probe Ql (Unsp spec) Not detected Normal NOT DETECTED [facility] Comment on above: Result Comment: This test is not yet approved or cleared by the [place] FDA. When there are no FDA-approved or cleared tests available, and other criteria are met, FDA can make tests available under an emergency access mechanism called an Emergency Use Authorization (EUA). The EUA for this test is supported by the [place] of Health and Human Service's (HHS's) declaration [...] By: #### I NSULIN #### [facility] [address] [place] [address] Dr. Carolyn King Albumin [Mass/volume] in Ser um or PlasmaOrdered By: Hudson De Leon on 05-23-2022 Albumin [Mass/Vol] 3.9 g/dL 3.2-5.5 [facility] Automated erythrocytes count in urine sediment (number/area)Ordered By: Hudson De Leon on 05-23-2022 RBC Auto (Urine sed) [#/Area] None seen [HPF] 0-4 [facility] Automated leukocytes count i n urine sediment (number/area)Ordered By: Hudson De Leon on 05-23-2022 WBC Auto (Urine sed) [#/Area] None seen [HPF] 0-4 [facility] Basophils Auto (Bld) [#/Vol] Ordered By: Hudson De Leon on 05-23-2022 Basophils (Bld) [#/Vol] 0.0 10*3/uL 0.0-0.2 [facility] Basophils/100 WBC Auto (Bld) Ordered By: Hudson De Leon on 05-23-2022 Basophils/100 WBC (Bld) 0.6 % . [facility] Bilirubin Test strip Ql (U)O rdered By: Hudson De Leon on 05-23-2022 Bilirubin Ql (U) Negative Negative [facility] Color Auto (U)Ordered By: Jessica De Leon on 05-23-2022 Color (U) Yellow Yellow [facility] Creatinine and Glomerular fi ltration rate.predicted panel (S/P/Bld)Ordered By: Hudson De Leon on 05-23-2022 Creatinine [Mass/Vol] 0.92 mg/dL 0.64-1.27 [facility] Eosinophils Auto (Bld) [#/Vo l]Ordered By: Hudson De Leon on 05-23-2022 Eosinophils (Bld) [#/Vol] 0.0 10*3/uL 0.0-0.45 [facility] Eosinophils/100 WBC Auto (Bl d)Ordered By: Hudson De Leon on 05-23-2022 Eosinophils/100 WBC (Bld) 0.9 % . [facility] Erythrocyte distribution wid th Auto (RBC) [Ratio]Ordered By: Hudson De Leon on 05-23-2022 Erythrocyte distribution width (RBC) [Ratio] 13.4 % 12.0-14.8 [facility] Erythrocyte sedimentation ra te by Photometric methodOrdered By: Hudson De Leon on 05-23-2022 ESR Photometric method (Bld) [Velocity] 6 mm/hr 0-19 [facility] Estimated glomerular filtrat ion rate (GFR) non- AmericanOrdered By: Hudson De Leon on 05-23-2022 GFR/1.73 sq M.predicted among non-blacks MDRD (S/P/Bld) [Vol rate/Area] > 60 mL/Min [facility] Globulin Calc (S) [Mass/Vol] Ordered By: Hudson De Leon on 05-23-2022 Globulin (S) [Mass/Vol] 2.8 g/dL [facility] Hematocrit Auto (Bld) [Volum e fraction]Ordered By: Hudson De Leon on 05-23-2022 Hematocrit (Bld) [Volume fraction] 44.5 % 38.8-50.0 [facility] Hemoglobin [Mass/volume] in BloodOrdered By: Hudson De Leon on 05-23-2022 Hemoglobin (Bld) [Mass/Vol] 14.9 g/dL 13.0-17.0 [facility] Ketones Auto test strip (U) [Mass/Vol]Ordered By: Hudson De Leon on 05-23-2022 Ketones (U) [Mass/Vol] Negative Negative [facility] - UrinalysisOrder ed By: Hudson De Leon on 05-23-2022 Hyaline casts LM Ql (Urine sed) None seen [LPF] 0-8 [facility] Leukocytes [#/volume] correc leah for nucleated erythrocytes in Blood by Automated counOrdered By: Hudson De Leon on 05-23-2022 WBC corrected for nucl RBC Auto (Bld) [#/Vol] 5.2 10*3/uL 4.1-10.5 [facility] Lymphocytes Auto (Bld) [#/Vo l]Ordered By: Hudson De Leon on 05-23-2022 Lymphocytes (Bld) [#/Vol] 1.1 10*3/uL 1.00-4.8 [facility] Lymphocytes/100 WBC Auto (Bl d)Ordered By: Hudson De Leon on 05-23-2022 Lymphocytes/100 WBC (Bld) 21.1 % . [facility] MCH Auto (RBC) [Entitic mass ]Ordered By: Hudson De Leon on 05-23-2022 MCH (RBC) [Entitic mass] 31.2 pg 27.5-35.2 [facility] MCHC Auto (RBC) [Mass/Vol]Or dered By: Hudson De Leon on 05-23-2022 MCHC (RBC) [Mass/Vol] 33.5 g/dL 32.5-35.6 [facility] MCV Auto (RBC) [Entitic vol] Ordered By: Hudson De Leon on 05-23-2022 MCV (RBC) [Entitic vol] 93.3 fL 83.5-101 [facility] Monocytes Auto (Bld) [#/Vol] Ordered By: Hudson De Leon on 05-23-2022 Monocytes (Bld) [#/Vol] 0.5 10*3/uL 0.0-0.8 [facility] Monocytes/100 WBC Auto (Bld) Ordered By: Hudson De Leon on 05-23-2022 Monocytes/100 WBC (Bld) 10.3 % . [facility] Neutrophils Auto (Bld) [#/Vo l]Ordered By: Hudson De Leon on 05-23-2022 Neutrophils (Bld) [#/Vol] 3.5 10*3/uL 1.8-7.7 [facility] Neutrophils/100 WBC Auto (Bl d)Ordered By: Hudson De Leon on 05-23-2022 Neutrophils/100 WBC (Bld) 67.1 % . [facility] Nitrite Test strip Ql (U)Ord ered By: Hudson De Leon on 05-23-2022 Nitrite Ql (U) Negative Negative [facility] No Panel InformationOrdered By: Hudson De Leon on 05-23-2022 Estimated GFR () > 60 mL/Min [facility] Comment on above: GFR estimated refere nce range: According to KDOQI guidelines, <60 ml/min/1.73m2 is sufficient to diagnose a patient with chronic kidney disease. Pharmacy Creatinine Clearance (Chem N/A [facility] Nucleated erythrocytes [Pres ence] in Blood by Automated countOrdered By: Hudson De Leon on 05-23-2022 Nucleated RBC Auto Ql (Bld) 0.2 /100{WBC} 0-0.5 [facility] Platelet mean volume Auto (B ld) [Entitic vol]Ordered By: Hudson De Leon on 05-23-2022 Platelet mean volume (Bld) [Entitic vol] 9.4 fL 6.6-10.1 [facility] Platelets Auto (Bld) [#/Vol] Ordered By: Hudson De Leon on 05-23-2022 Platelets (Bld) [#/Vol] 234 10*3/uL 150-450 [facility] Protein Auto test strip (U) [Mass/Vol]Ordered By: Hudson De Leon on 05-23-2022 Protein (U) [Mass/Vol] Negative Negative [facility] Protein [Mass/volume] in Ser um or PlasmaOrdered By: Hudson De Leon on 05-23-2022 Protein [Mass/Vol] 6.7 g/dL 6.1-7.9 [facility] RBC Auto (Bld) [#/Vol]Ordere d By: Hudson De Leon on 05-23-2022 RBC (Bld) [#/Vol] 4.77 10*6/uL 3.90-5.60 [facility] Serum or plasma alanine gates otransferase measurement without P-5'-P (enzymatic activiOrdered By: Hudson De Leon on 05-23-2022 ALT No additional P-5'-P [Catalytic activity/Vol] 27 U/L [facility] Serum or plasma albumin/glob ulin mass ratioOrdered By: Hudson De Leon on 05-23-2022 Albumin/Globulin [Mass ratio] 1.4 {ratio} [facility] Serum or plasma alkaline amanda sphatase measurement (enzymatic activity/volume)Ordered By: Hudson De Leon on 05-23-2022 ALP [Catalytic activity/Vol] 90 U/L 32-92 [facility] Serum or plasma anion gap de terminationOrdered By: Hudson De Leon on 05-23-2022 Anion gap [Moles/Vol] 12.3 mmol/L 6.0-15.0 [facility] Serum or plasma aspartate am inotransferase measurement (enzymatic activity/volume)Ordered By: Hudson De Leon on 05-23-2022 AST [Catalytic activity/Vol] 31 U/L [facility] Serum or plasma calcium karl urement (mass/volume)Ordered By: Hudson De Leon on 05-23-2022 Calcium [Mass/Vol] 9.1 mg/dL 8.2-10.2 [facility] Serum or plasma chloride reba surement (moles/volume)Ordered By: Hudson De Leon on 05-23-2022 Chloride [Moles/Vol] 102 mmol/L 95-114 [facility] Serum or plasma glucose karl urement (mass/volume)Ordered By: Hudson De Leon on 05-23-2022 Glucose [Mass/Vol] 75 mg/dL 70-100 [facility] Comment on above: ADA recommended refe rence rangeRandom Glucose Reference Range is dependent on time and content of last meal. Glucose of more than 200 mg/dL in a nonstressed, ambulatory subject supports the diagnosis of Diabetes Mellitus. Serum or plasma potassium me asurement (moles/volume)Ordered By: Hudson De Leon on 05-23-2022 Potassium [Moles/Vol] 4.0 mmol/L 3.5-5.1 [facility] Serum or plasma sodium measu rement (moles/volume)Ordered By: Hudson De Leon on 05-23-2022 Sodium [Moles/Vol] 137 mmol/L 136-146 [facility] Serum or plasma total biliru bin measurement (mass/volume)Ordered By: Hudson De Leon on 05-23-2022 Bilirubin [Mass/Vol] 0.6 mg/dL 0.3-1.2 [facility] Serum or plasma total carbon dioxide measurement (moles/volume)Ordered By: Hudson De Leon on 05-23-2022 CO2 [Moles/Vol] 26.7 mmol/L 22.0-30.0 [facility] Serum or plasma urea nitroge n measurement (mass/volume)Ordered By: Hudson De eLon on 05-23-2022 Urea nitrogen [Mass/Vol] 11 mg/dL 9-23 [facility] Specific gravity Auto test s trip (U) [Rel density]Ordered By: Hudson De Leon on 05-23-2022 Specific gravity (U) [Rel density] 1.014 1.001-1.03 0 [facility] Squamous epithelial cells de tection in urine sediment by light microscopyOrdered By: Hudson De Leon on 05-23-2022 Epithelial cells.squamous LM Ql (Urine sed) None seen [HPF] 0-2 [facility] Urine bacteria detection by automated methodOrdered By: Hudson De Leon on 05-23-2022 Bacteria Auto Ql (U) None seen None Seen [facility] Urine clarity by refractomet ry automatedOrdered By: Hudson De Leon on 05-23-2022 Clarity Refractometry automated (U) Clear Clear [facility] Urine glucose measurement by automated test strip (mass/volume)Ordered By: Hudson De Leon on 05-23-2022 Glucose Auto test strip (U) [Mass/Vol] Normal mg/dL Normal [facility] Urine hemoglobin detection b y automated test stripOrdered By: Hudson De Leon on 05-23-2022 Hemoglobin Auto test strip Ql (U) Negative Negative [facility] Urine leukocyte esterase det ection by automated test stripOrdered By: Hudson De Leon on 05-23-2022 Leukocyte esterase Auto test strip Ql (U) Negative Negative [facility] Urobilinogen Auto test strip (U) [Mass/Vol]Ordered By: Hudson De Leon on 05-23-2022 Urobilinogen (U) [Mass/Vol] Normal mg/dL Normal [facility] WBC Auto (Bld) [#/Vol]Ordere d By: Hudson De Leon on 05-23-2022 WBC (Bld) [#/Vol] 5.2 10*3/uL 4.1-10.5 [facility] pH Auto test strip (U)Ordere d By: Hudson De Leon on 05-23-2022 pH (U) 5.5 [pH] 5.0-9.0 [facility] BN SPINE, CERVICAL, 2 OR 3 V IEWSon 05-02-2022 BN SPINE, CERVICAL, 2 OR 3 VIEWS Patient Name: JAY CARR STUDY: SPINE, CERVICAL, 2 OR 3 VIEWS; 05/02/2022 9:46 am INDICATION: cervical post op 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 COMPARISON: 08/03/2021 ACCESSION NUMBER(S): [id number] ORDERING CLINICIAN: KENTON LAWSON FINDINGS: Two views of the cervical spine. Patient is status post anterior cervical discectomy and fusion from C5-C7. No hardware complication. No acute fracture. No focal subluxation. Mild multilevel degenerative changes. IMPRESSION: Postsurgical changes status post ACDF from C5-C7. No hardware complication. Mild multilevel spondylosis. Electronically signed by: FRANCISCO FOLEY MD Normal [facility] BN SPINE, LUMBOSACRAL; 2 OR 3 VIEWSon 05-02-2022 BN SPINE, LUMBOSACRAL; 2 OR 3 VIEWS Patient Name: JAY CARR STUDY: SPINE, LUMBOSACRAL; 2 OR 3 VIEWS; 05/02/2022 9:46 am INDICATION: AP/LAT M54.50: Lumbar back pain M48.062: Lumbar stenosis with neurogenic claudication. COMPARISON: 01/29/2022 ACCESSION NUMBER(S): [id number] ORDERING CLINICIAN: KENTON LAWSON FINDINGS: Two views [...] Electronically signed by: FRANCISCO FOLEY MD Normal [facility] Established Visit (Orthopaed ic Surgery)on [...] Present Illness Jay is a pleasant 62-year-old hthhe-nsis-hhdvablj male who presents today with his for [...] by phys (more content not included)... Normal [facility] Radiologyon 05-02-2022 XR Cervical spine 3 Views Normal [facility] DO Work Phone: XR Lumbar spine AP and Lateral Normal [facility] DO Work Phone: INSULINon 03-29-2022 Insulin 14.5 uIU/mL Normal 2.6-24.9 [facility] Comment on above: Performed By: #### I NSULIN #### [facility] [address] [address] [address] Carolyn King CBC AUTO DIFFon 03-28-2022 BASO # 0.0 103/ul Normal 0.0-0.1 [facility] Comment on above: Performed By: #### C BC #### [facility] [address] [place] [address] Dr. Carolyn King Basophils/100 WBC (Bld) 0.6 % Normal 0.2-2.0 [facility] Comment on above: Performed By: #### C BC #### [facility] [address] [place] [address] Dr. Carolyn King EO # 0.1 103/ul Normal 0.0-0.7 [facility] Comment on above: Performed By: #### C BC #### [facility] [address] [place] [address] Dr. Carolyn King Eosinophils/100 WBC (Bld) 1.6 % Normal 0.9-7.0 [facility] Comment on above: Performed By: #### C BC #### [facility] [address] [place] [address] Dr. Carolyn King Erythrocyte distribution width (RBC) [Ratio] 13.2 % Normal 11.0-15.0 [facility] Comment on above: Performed By: #### C BC #### [facility] [address] [place] [address] Dr. Carolyn King Hematocrit (Bld) [Volume fraction] 44.5 % Normal 42.0-54.0 [facility] Comment on above: Performed By: #### C BC #### [facility] [address] [place] [address] Dr. Carolyn King Hemoglobin (Bld) [Mass/Vol] 15.0 g/dL Normal 14.0-18.0 [facility] Comment on above: Performed By: #### C BC #### [facility] [address] [place] [address] Dr. Carolyn King IG # 0.01 10e3/ul Normal 0.00-0.03 [facility] Comment on above: Performed By: #### C BC #### [facility] [address] [place] [address] Dr. Carolyn King IG % 0.2 % Normal 0.0-0.5 [facility] Comment on above: Performed By: #### C BC #### [facility] [address] [address] [address] Carolyn King LYMPH # 1.0 103/ul Critically low 1.2-3.8 [facility] Comment on above: Performed By: #### C BC #### [facility] [address] [address] [address] Carolyn King Lymphocytes/100 WBC (Bld) 15.8 % Critically low 20.5-60.0 [facility] Comment on above: Performed By: #### C BC #### [facility] [address] [place] [address] Dr. Carolyn King MANUAL DIFF REQ NO Normal [facility] Comment on above: Performed By: #### C BC #### [facility] [address] [place] [address] Dr. Carolyn King MCH (RBC) [Entitic mass] 31.1 pg Normal 25.9-34.0 [facility] Comment on above: Performed By: #### C BC #### [facility] [address] [place] [address] Dr. Carolyn King MCHC (RBC) [Mass/Vol] 33.7 g/dL Normal 29.9-35.2 [facility] Comment on above: Performed By: #### C BC #### [facility] [address] [place] [address] Dr. Carolyn King MCV (RBC) [Entitic vol] 92.3 fL Normal 80.0-94.0 [facility] Comment on above: Performed By: #### C BC #### [facility] [address] [place] [address] Dr. Carolyn King MONO # 0.7 103/ul Normal 0.3-0.8 [facility] Comment on above: Performed By: #### C BC #### [facility] [address] [place] [address] Dr. Carolyn King Monocytes/100 WBC (Bld) 10.7 % Normal 1.7-12.0 [facility] Comment on above: Performed By: #### C BC #### [facility] [address] [address] [address] Carolyn King NEUT # 4.4 103/ul Normal 1.4-6.5 [facility] Comment on above: Performed By: #### C BC #### [facility] [address] [address] [address] Carolyn King Neutrophils/100 WBC (Bld) 71.1 % Normal 43.0-75.0 [facility] Comment on above: Performed By: #### C BC #### [facility] [address] [place] [address] Dr. Carolyn King Platelet mean volume (Bld) [Entitic vol] 10.2 fL Normal 9.5-13.5 [facility] Comment on above: Performed By: #### C BC #### [facility] [address] [place] [address] Dr. Carolyn King PLT 242 103/ul Normal 150-450 [facility] Comment on above: Performed By: #### C BC #### [facility] [address] [place] [address] Dr. Carolyn King RBC 4.82 106/ul Normal 4.70-6.10 [facility] Comment on above: Performed By: #### C BC #### [facility] [address] [place] [address] Dr. Carolyn King WBC 6.2 103/ul Normal 4.0-11.0 [facility] Comment on above: Performed By: #### C BC #### [facility] [address] [place] [address] Dr. Carolyn King FREE THYROXINE INDEX T7on FTI 2.55 Normal 1.30-4.50 [facility] Comment on above: Performed By: #### U ALLEN, TSH, T7, LIPID, CMP #### [facility] [address] [place] [address] Dr. Carolyn King T3U 30.0 % Critically low 33.0-40.0 [facility] Comment on above: Performed By: #### U ALLEN, TSH, T7, LIPID, CMP #### [facility] [address] [address] [address] Carolyn King T4 [Mass/Vol] 8.50 ug/dL Normal 4.50-12.10 [facility] Comment on above: Performed By: #### U ALLEN, TSH, T7, LIPID, CMP #### [facility] [address] [address] [address] Carolyn King GLYCOHEMOGLOBIN A1Con 2021 ADA RECOMMENDATION SEE BELOW Normal [facility] Comment on above: Result Comment: ADA RECOMMENDED LIMIT 4.0 - 6.0 ADA THERAPEUTIC TARGET < 7.0 ACTION SUGGESTED > 7.0 Performed By: #### A 1C #### [facility] [address] [place] [address] Dr. Carolyn King Glucose [Mass/Vol] 103 mg/dL Normal 74-106 [facility] Comment on above: Performed By: #### A 1C #### [facility] [address] [place] [address] Dr. Carolyn King Performed By: #### U ALLEN, TSH, T7, LIPID, CMP #### [facility] [address] [place] [address] Dr. Carolyn King HbA1c (Bld) [Mass fraction] 5.2 % Normal 4.5-6.2 [facility] Comment on above: Performed By: #### A 1C #### [facility] [address] [place] [address] Dr. Carolyn King LIPID PROFILEon 03-28-2022 CHOL-HDL RATIO NORM SEE BELOW Normal [facility] Comment on above: Result Comment: 3.3 - 4.4 LOW RISK 4.4 - 7.1 AVERAGE RISK 7.1 - 11.0 MODERATE RISK >11.0 HIGH RISK Performed By: #### U ALLEN, TSH, T7, LIPID, CMP #### [facility] [address] [place] [address] Dr. Carolyn King Cholesterol [Mass/Vol] 157 mg/dL Normal <=200 [facility] Comment on above: Performed By: #### U ALLEN, TSH, T7, LIPID, CMP #### [facility] [address] [address] [address] Carolyn King Cholesterol in HDL [Mass/Vol] 49 mg/dL Normal 40-60 [facility] Comment on above: Performed By: #### U ALLEN, TSH, T7, LIPID, CMP #### [facility] [address] [address] [address] Carolyn King Cholesterol in LDL [Mass/Vol] 85.6 mg/dL Normal [facility] Comment on above: Performed By: #### U ALLEN, TSH, T7, LIPID, CMP #### [facility] [address] [address] [address] Carolyn King Cholesterol.total/Chol esterol in HDL [Mass ratio] 3.2 {ratio} Normal [facility] Comment on above: Performed By: #### U ALLEN, TSH, T7, LIPID, CMP #### [facility] [address] [address] [address] Carolyn King HDL NORMAL > or = 60 mg/dl - LO W CARDIOVASCULAR RISK <40 mg/dl - HIGH CARDIOVASCULAR RISK Normal [facility] Comment on above: Performed By: #### U ALLEN, TSH, T7, LIPID, CMP #### [facility] [address] [address] [address] Carolyn King LDL CALC NORMAL SEE BELOW Normal [facility] Comment on above: Result Comment: <100 mg/dl OPTIMAL 100 - 129 mg/dl NEAR OR ABOVE OPTIMAL 130 - 159 mg/dl BORDERLINE HIGH 160 - 189 mg/dl HIGH >190 mg/dl VERY HIGH Performed By: #### U ALLEN, TSH, T7, LIPID, CMP #### [facility] [address] [address] [address] Carolyn King Triglyceride [Mass/Vol] 112 mg/dL Normal <=150 [facility] Comment on above: Performed By: #### U ALLEN, TSH, T7, LIPID, CMP #### [facility] [address] [address] [address] Carolyn King VLDL CALC 22.4 mg/dL Normal [facility] Comment on above: Performed By: #### U ALLEN, TSH, T7, LIPID, CMP #### [facility] [address] [place] [address] Dr. Carolyn King PROF 14(COMP METB)on 022 Albumin [Mass/Vol] 3.9 g/dL Normal 3.4-5.0 [facility] Comment on above: Performed By: #### U ALLEN, TSH, T7, LIPID, CMP #### [facility] [address] [place] [address] Dr. Carolyn King Albumin/Globulin [Mass ratio] 1.1 {ratio} Normal [facility] Comment on above: Performed By: #### U ALLEN, TSH, T7, LIPID, CMP #### [facility] [address] [place] [address] Dr. Carolyn King ALP [Catalytic activity/Vol] 108 U/L Normal 46-116 [facility] Comment on above: Performed By: #### U ALLEN, TSH, T7, LIPID, CMP #### [facility] [address] [place] [address] Dr. Carolyn King ALT [Catalytic activity/Vol] 28 U/L Normal 16-63 [facility] Comment on above: Performed By: #### U ALLEN, TSH, T7, LIPID, CMP #### [facility] [address] [place] [address] Dr. Carolyn King Anion gap [Moles/Vol] 6.6 mmol/L Normal [facility] Comment on above: Performed By: #### U ALLEN, TSH, T7, LIPID, CMP #### [facility] [address] [place] [address] Dr. Carolyn King AST [Catalytic activity/Vol] 22 U/L Normal 15-37 [facility] Comment on above: Performed By: #### U ALLEN, TSH, T7, LIPID, CMP #### [facility] [address] [place] [address] Dr. Carolyn King Bilirubin [Mass/Vol] 0.6 mg/dL Normal 0.2-1.0 [facility] Comment on above: Performed By: #### U ALLEN, TSH, T7, LIPID, CMP #### [facility] [address] [address] [address] Carolyn King Calcium [Mass/Vol] 8.7 mg/dL Normal 8.5-10.1 [facility] Comment on above: Performed By: #### U ALLEN, TSH, T7, LIPID, CMP #### [facility] [address] [address] [address] Carolyn King Chloride [Moles/Vol] 105 mmol/L Normal 98-107 [facility] Comment on above: Performed By: #### U ALLEN, TSH, T7, LIPID, CMP #### [facility] [address] [address] [address] Carolyn King CO2 [Moles/Vol] 30.6 mmol/L Normal 21.0-32.0 [facility] Comment on above: Performed By: #### U ALLEN, TSH, T7, LIPID, CMP #### [facility] [address] [address] [address] Carolyn King Creatinine [Mass/Vol] 0.96 mg/dL Normal 0.70-1.30 [facility] Comment on above: Performed By: #### U ALLEN, TSH, T7, LIPID, CMP #### [facility] [address] [place] [address] Dr. Carolyn King EGFR-AF TUVALUAN >60 Normal >=60 [facility] Comment on above: Performed By: #### U ALLEN, TSH, T7, LIPID, CMP #### [facility] [address] [address] [address] Carolyn King EGFR-NON AF TUVALUAN >60 Normal >=60 [facility] Comment on above: Performed By: #### U ALLEN, TSH, T7, LIPID, CMP #### [facility] [address] [address] [address] Carolyn King Globulin (S) [Mass/Vol] 3.5 g/dL Normal [facility] Comment on above: Performed By: #### U ALLEN, TSH, T7, LIPID, CMP #### [facility] [address] [address] [address] Carolyn King Potassium [Moles/Vol] 4.2 mmol/L Normal 3.5-5.1 [facility] Comment on above: Performed By: #### U ALLEN, TSH, T7, LIPID, CMP #### [facility] [address] [place] [address] Dr. Carolyn King Protein [Mass/Vol] 7.4 g/dL Normal 6.4-8.2 [facility] Comment on above: Performed By: #### U ALLEN, TSH, T7, LIPID, CMP #### [facility] [address] [place] [address] Dr. Carolyn King Sodium [Moles/Vol] 138 mmol/L Normal 136-145 [facility] Comment on above: Performed By: #### U ALLEN, TSH, T7, LIPID, CMP #### [facility] [address] [place] [address] Dr. Carolyn King Urea nitrogen [Mass/Vol] 16.0 mg/dL Normal 7.0-18.0 [facility] Comment on above: Performed By: #### U ALLEN, TSH, T7, LIPID, CMP #### [facility] [address] [place] [address] Dr. Carolyn King Urea nitrogen/Creatinine [Mass ratio] 16.7 mg/mg Normal [facility] Comment on above: Performed By: #### U ALLEN, TSH, T7, LIPID, CMP #### [facility] [address] [place] [address] Dr. Carolyn King TSHon 03-28-2022 TSH 1.986 uIU/mL Normal 0.358-3.74 0 [facility] Comment on above: Performed By: #### U ALLEN, TSH, T7, LIPID, CMP #### [facility] [address] [place] [address] Dr. Carolyn King URIC ACID SERUMon 03-28-2022 Urate [Mass/Vol] 5.5 mg/dL Normal 3.5-7.2 [facility] Comment on above: Performed By: #### U ALLEN, TSH, T7, LIPID, CMP #### [facility] [address] [place] [address] Dr. Carolyn King Ammonium urate crystals dete ction in stone by infrared spectroscopyOrdered By: Shun Machado on 02-15-2022 Ammonium urate crystals Infrared spectroscopy Ql (Stone) N/A [facility] Basophils Auto (Bld) [#/Vol] Ordered By: Steve Pina on 02-15-2022 Basophils (Bld) [#/Vol] 0.0 10*3/uL 0.0-0.2 [facility] Basophils/100 WBC Auto (Bld) Ordered By: Steve Pina on 02-15-2022 Basophils/100 WBC (Bld) 0.9 % . [facility] Blood hemoglobin measurement (mass/volume)Ordered By: Steve Pina on 02-15-2022 Hemoglobin (Bld) [Mass/Vol] 14.2 g/dL 13.0-17.0 [facility] Blood leukocytes automated c ount (number/volume)Ordered By: Steve Pina on 02-15-2022 WBC (Bld) [#/Vol] 4.5 10*3/uL 4.5-11.0 [facility] Calcium bilirubinate measure mentOrdered By: Shun Machado on 02-15-2022 Calcium bilirubinate (Stone) [Mass fraction] N/A [facility] Calcium carbonate measuremen tOrdered By: Shun Machado on 02-15-2022 Calcium carbonate (Stone) [Mass fraction] N/A [facility] Calcium hydrogen phosphate d ihydrate/Total in StoneOrdered By: Shun Machado on 02-15-2022 Calcium hydrogen phosphate dihydrate (Stone) [Mass fraction] N/A [facility] Calcium oxalate dihydrate cr ystals detection in stone by infrared spectroscopyOrdered By: Shun Machado on 02-15-2022 Calcium oxalate dihydrate crystals Infrared spectroscopy Ql (Stone) 10 % . [facility] Calcium oxalate monohydrate/ Total in StoneOrdered By: Shun Machado on 02-15-2022 Calcium oxalate monohydrate (Stone) [Mass fraction] 90 % . [facility] Calcium phosphate measuremen tOrdered By: Shun Machado on 02-15-2022 Calcium phosphate (Stone) [Mass fraction] N/A [facility] Calculus analysis interpreta tion in stoneOrdered By: Shun Machado on 02-15-2022 Calculus analysis [Interp] N/A [facility] Calculus analysis [Interp] See comment . [facility] Comment on above: Physician questions regarding Calculi Analysis contact [facility] at: [phone]. Calculi report will follow via computer, mail or clinical coder delivery. Calculus analysis with calcu iggy photography interpretation in stoneOrdered By: Shun Machado on 02-15-2022 Calculus analysis with calculus photography [Interp] See comment . [facility] Comment on above: Photograph will foll ow under a separate cover Cellular material measuremen t in stone by estimated (mass/mass)Ordered By: Shun Machado on 02-15-2022 Cellular material Est (Stone) [Mass/Mass] N/A [facility] Cholesterol/Total in StoneOr dered By: Shun Machado on 02-15-2022 Cholesterol (Stone) [Mass fraction] N/A [facility] Composition of stoneOrdered By: Shun Machado on 02-15-2022 Composition Nom (Stone) See comment . [facility] Comment on above: Percentage (Represen ts the % composition) Creatinine and Glomerular fi ltration rate.predicted panel (S/P/Bld)Ordered By: Steve Pina on 02-15-2022 Creatinine [Mass/Vol] 0.96 mg/dL 0.64-1.27 [facility] Cystine measurementOrdered B y: Shun Machado on 02-15-2022 Cystine (Unsp spec) [Moles/Vol] N/A [facility] Determination of color of ca lculusOrdered By: Shun Machaod on 02-15-2022 Color (Stone) Brown . [facility] Eosinophils Auto (Bld) [#/Vo l]Ordered By: Steve Pina on 02-15-2022 Eosinophils (Bld) [#/Vol] 0.1 10*3/uL 0.0-0.45 [facility] Eosinophils/100 WBC Auto (Bl d)Ordered By: Steve Pina on 02-15-2022 Eosinophils/100 WBC (Bld) 2.7 % . [facility] Erythrocyte distribution wid th Auto (RBC) [Ratio]Ordered By: Steve Pina on 02-15-2022 Erythrocyte distribution width (RBC) [Ratio] 14.0 % 12.0-14.8 [facility] Estimated glomerular filtrat ion rate (GFR) non- AmericanOrdered By: Steve Pina on 02-15-2022 GFR/1.73 sq M.predicted among non-blacks MDRD (S/P/Bld) [Vol rate/Area] > 60 mL/Min [facility] Hematocrit Auto (Bld) [Volum e fraction]Ordered By: Steve Pina on 02-15-2022 Hematocrit (Bld) [Volume fraction] 42.2 % 38.8-50.0 [facility] Hydroxyapatite [Energy Diffe rence] in 24 hour UrineOrdered By: Shun Machado on 02-15-2022 Hydroxyapatite (24H U) [Energy diff] N/A [facility] Laboratory - Hematology and Cell countsOrdered By: Steve Pina on 02-15-2022 Nucleated RBC/100 WBC (Bld) [Ratio] 0.0 % 0-0.5 [facility] Lymphocytes Auto (Bld) [#/Vo l]Ordered By: Steve Pina on 02-15-2022 Lymphocytes (Bld) [#/Vol] 1.0 10*3/uL 1.00-4.8 [facility] Lymphocytes/100 WBC Auto (Bl d)Ordered By: Steve Pina on 02-15-2022 Lymphocytes/100 WBC (Bld) 21.3 % . [facility] MCH Auto (RBC) [Entitic mass ]Ordered By: Steve Pina on 02-15-2022 MCH (RBC) [Entitic mass] 31.0 pg 27.5-35.2 [facility] MCHC Auto (RBC) [Mass/Vol]Or dered By: Steve Pina on 02-15-2022 MCHC (RBC) [Mass/Vol] 33.7 g/dL 32.5-35.6 [facility] MCV Auto (RBC) [Entitic vol] Ordered By: Steve Pina on 02-15-2022 MCV (RBC) [Entitic vol] 92.1 fL 83.5-101 [facility] Measurement of proportion of calculus composed of dried blood (mass/mass)Ordered By: Shun Machado on 02-15-2022 Blood.dried (Stone) [Mass fraction] N/A [facility] Monocytes Auto (Bld) [#/Vol] Ordered By: Steve Pina on 02-15-2022 Monocytes (Bld) [#/Vol] 0.5 10*3/uL 0.0-0.8 [facility] Monocytes/100 WBC Auto (Bld) Ordered By: Steve Pina on 02-15-2022 Monocytes/100 WBC (Bld) 10.1 % . [facility] Neutrophils Auto (Bld) [#/Vo l]Ordered By: Steve Pina on 02-15-2022 Neutrophils (Bld) [#/Vol] 3.0 10*3/uL 1.8-7.7 [facility] Neutrophils/100 WBC Auto (Bl d)Ordered By: Steve Pina on 02-15-2022 Neutrophils/100 WBC (Bld) 65.0 % . [facility] Newberyite/Total in StoneOrd ered By: Shun Machado on 02-15-2022 Newberyite (Stone) [Mass fraction] N/A [facility] No Panel InformationOrdered By: Shun Machado on 02-15-2022 Stone 2,8 Dihydroxyadenine N/A [facility] Disclaimer See comment . [facility] Comment on above: This test was develo ped and its performance characteristics determined by [facility]. It has not been cleared or approved by the Food and Drug Administration. Performed at: [facility] [address] [place] [address] [place] [id number] [employer] Cashier: Riley Parikh PhD, Phone: [phone] [facility] N/A [facility] Calcium Palmitate N/A [facility] Stone Calcium Stearate N/A [facility] Stone Carbonate Apatite N/A [facility] Stone Drug or Metabolite N/A [facility] Stone Other Constituent N/A [facility] Stone Xanthine N/A [facility] No Panel InformationOrdered By: Steve Pina on 02-15-2022 Estimated GFR () > 60 mL/Min [facility] Comment on above: GFR estimated refere nce range: According to KDOQI guidelines, <60 ml/min/1.73m2 is sufficient to diagnose a patient with chronic kidney disease. Pharmacy Creatinine Clearance (Chem 93.62 [facility] Platelet mean volume Auto (B ld) [Entitic vol]Ordered By: Steve Pina on 02-15-2022 Platelet mean volume (Bld) [Entitic vol] 7.9 fL 6.6-10.1 [facility] Platelets Auto (Bld) [#/Vol] Ordered By: Steve Pina on 02-15-2022 Platelets (Bld) [#/Vol] 202 10*3/uL 150-450 [facility] RBC Auto (Bld) [#/Vol]Ordere d By: Steve Pina on 02-15-2022 RBC (Bld) [#/Vol] 4.58 10*6/uL 3.90-5.60 [facility] Serum or plasma calcium karl urement (mass/volume)Ordered By: Steve Pina on 02-15-2022 Calcium [Mass/Vol] 9.0 mg/dL 8.2-10.2 [facility] Serum or plasma chloride reba surement (moles/volume)Ordered By: Steve Pina on 02-15-2022 Chloride [Moles/Vol] 102 mmol/L 95-114 [facility] Serum or plasma glucose karl urement (mass/volume)Ordered By: Steve Pina on 02-15-2022 Glucose [Mass/Vol] 108 mg/dL 70-100 [facility] Comment on above: ADA recommended refe rence range Random Glucose Reference Range is dependent on time and content of last meal. Glucose of more than 200 mg/dL in a nonstressed, ambulatory subject supports the diagnosis of Diabetes Mellitus. Serum or plasma potassium me asurement (moles/volume)Ordered By: Steve Pina on 02-15-2022 Potassium [Moles/Vol] 3.9 mmol/L 3.5-5.1 [facility] Serum or plasma sodium measu rement (moles/volume)Ordered By: Steve Pina on 02-15-2022 Sodium [Moles/Vol] 137 mmol/L 136-146 [facility] Serum or plasma total carbon dioxide measurement (moles/volume)Ordered By: Steve Pina on 02-15-2022 CO2 [Moles/Vol] 28.0 mmol/L 22.0-30.0 [facility] Serum or plasma urea nitroge n measurement (mass/volume)Ordered By: Steve Pina on 02-15-2022 Urea nitrogen [Mass/Vol] 11 mg/dL 9- [facility] Size [Entitic volume] of Sto neOrdered By: Shun [place] on 02-15-2022 Size (Stone) [Entitic vol] 5x3 mm . [facility] Comment on above: Multiple pieces rece ived. Dimensions of the largest piece reported. Sodium urate crystals detect ion in stone by infrared spectroscopyOrdered By: Shun Machado on 02-15-2022 Sodium urate crystals Infrared spectroscopy Ql (Stone) N/A [facility] Specimen source subject [Typ e]Ordered By: Shun Machado on 02-15-2022 Specimen source subject Nom See comment . [facility] Comment on above: Right Ureter Triamterene measurement in c alculusOrdered By: Shun Machado on 02-15-2022 Triamterene (Stone) [Mass fraction] N/A [facility] Triple phosphate/Total in St oneOrdered By: Shun Machado on 02-15-2022 Triple phosphate (Stone) [Mass fraction] N/A [facility] Uric acid dihydrate crystals detection in stone by infrared spectroscopyOrdered By: Shun Machado on 02-15-2022 Urate dihydrate crystals Infrared spectroscopy Ql (Stone) N/A [facility] XR ANKLE RT MIN 3 [...] Date: 2022-02-15 06:59 Normal [facility] COVID-19 Positive/NegativeOr dered By: Shun Machado on 02-13-2022 SARS-CoV-2 (COVID-19) N gene LU+probe Ql (Resp) Negative Negative [facility] Comment on above: Testing for SARS-CoV -2 by RT-PCR This test was developed and its performance characteristics determined by [employer] and validated at the [facility]. This test has not been [...] claudication. COMPARISON: November 08, 2021 ACCESSION NUMBER(S): [id number] ORDERING CLINICIAN: KENTON LAWOSN FINDINGS: Status post anterior and posterior fusion L3-L5 unchanged prior examination with disc space replacement and posterior pedicle screws. Alignment normal. Upper lumbar degenerative changes greatest at L2-3 again noted. IMPRESSION: Satisfactory and unchanged appearance status post L3-L5 fusion. Electronically signed by: JENI SNYDER MD Normal [facility] Established Visit (Orthopaed ic Surgery)on [...] Xray BN Spine, Lumbosacral; 2 or 3 [id number] 10:34AKenton fernández Test NameResultFlagReference Xray Lumbar Spine [...] Date: 2022-01-29 21:07 Normal [facility] Activated partial thrombopla stin time (aPTT) in platelet poor plasma by coagulation aOrdered By: Shun Machado on 01-17-2022 aPTT Coag (PPP) [Time] 36.3 s 25.1-36.5 [facility] COVID-19 Positive/NegativeOr dered By: Shun Machado on 01-17-2022 SARS-CoV-2 (COVID-19) N gene LU+probe Ql (Resp) Negative Negative [facility] Comment on above: Testing for SARS-CoV -2 by RT-PCR This test was developed and its performance characteristics determined by [employer] ([employer]) and validated at the [facility]. This test has not been [...] PT Coag (PPP) [Time] 11.9 s 9.0-12.9 [facility] Platelet poor plasma interna tional normalized ratio (INR) by coagulation assay (relatOrdered By: Shun Machado on 01-17-2022 INR Coag (PPP) [Relative time] 1.1 {INR} [facility] Comment on above: INR Therapeutic [...] Date: 2022-01-11 16:29 Normal [facility] CBC AUTO DIFFon 01-09-2022 BASO # 0.0 103/ul Normal 0.0-0.1 [facility] Comment on above: Performed By: #### C BC #### [facility] [address] [place] [address] Dr. Carolyn King Basophils/100 WBC (Bld) 0.4 % Normal 0.2-2.0 [facility] Comment on above: Performed By: #### C BC #### [facility] [address] [place] [address] Dr. Carolyn King EO # 0.0 103/ul Normal 0.0-0.7 [facility] Comment on above: Performed By: #### C BC #### [facility] [address] [place] [address] Dr. Carolyn King Eosinophils/100 WBC (Bld) 0.3 % Critically low 0.9-7.0 [facility] Comment on above: Performed By: #### C BC #### [facility] [address] [place] [address] Dr. Carolyn King Erythrocyte distribution width (RBC) [Ratio] 12.6 % Normal 11.0-15.0 [facility] Comment on above: Performed By: #### C BC #### [facility] [address] [place] [address] Dr. Carolyn King Hematocrit (Bld) [Volume fraction] 45.6 % Normal 42.0-54.0 [facility] Comment on above: Performed By: #### C BC #### [facility] [address] [place] [address] Dr. Carolyn King Hemoglobin (Bld) [Mass/Vol] 15.6 g/dL Normal 14.0-18.0 [facility] Comment on above: Performed By: #### C BC #### [facility] [address] [place] [address] Dr. Carolyn King IG # 0.02 10e3/ul Normal 0.00-0.03 [facility] Comment on above: Performed By: #### C BC #### [facility] [address] [place] [address] Dr. Carolyn King IG % 0.3 % Normal 0.0-0.5 [facility] Comment on above: Performed By: #### C BC #### [facility] [address] [address] [address] Carolyn King LYMPH # 0.8 103/ul Critically low 1.2-3.8 [facility] Comment on above: Performed By: #### C BC #### [facility] [address] [address] [address] Carolyn King Lymphocytes/100 WBC (Bld) 11.4 % Critically low 20.5-60.0 [facility] Comment on above: Performed By: #### C BC #### [facility] [address] [place] [address] Dr. Carolyn King MANUAL DIFF REQ NO Normal [facility] Comment on above: Performed By: #### C BC #### [facility] [address] [place] [address] Dr. Carolyn King MCH (RBC) [Entitic mass] 30.8 pg Normal 25.9-34.0 [facility] Comment on above: Performed By: #### C BC #### [facility] [address] [place] [address] Dr. Carolyn King MCHC (RBC) [Mass/Vol] 34.2 g/dL Normal 29.9-35.2 [facility] Comment on above: Performed By: #### C BC #### [facility] [address] [place] [address] Dr. Carolyn King MCV (RBC) [Entitic vol] 89.9 fL Normal 80.0-94.0 [facility] Comment on above: Performed By: #### C BC #### [facility] [address] [place] [address] Dr. Carolyn King MONO # 0.6 103/ul Normal 0.3-0.8 [facility] Comment on above: Performed By: #### C BC #### [facility] [address] [place] [address] Dr. Carolyn King Monocytes/100 WBC (Bld) 8.5 % Normal 1.7-12.0 [facility] Comment on above: Performed By: #### C BC #### [facility] [address] [address] [address] Carolyn King NEUT # 5.8 103/ul Normal 1.4-6.5 [facility] Comment on above: Performed By: #### C BC #### [facility] [address] [place] [address] Dr. Carolyn King Neutrophils/100 WBC (Bld) 79.1 % Critically high 43.0-75.0 [facility] Comment on above: Performed By: #### C BC #### [facility] [address] [place] [address] Dr. Carolyn King Platelet mean volume (Bld) [Entitic vol] 10.7 fL Normal 9.5-13.5 [facility] Comment on above: Performed By: #### C BC #### [facility] [address] [place] [address] Dr. Carolyn King PLT 235 103/ul Normal 150-450 [facility] Comment on above: Performed By: #### C BC #### [facility] [address] [place] [address] Dr. Carolyn King RBC 5.07 106/ul Normal 4.70-6.10 [facility] Comment on above: Performed By: #### C BC #### [facility] [address] [place] [address] Dr. Carolyn King WBC 7.4 103/ul Normal 4.0-11.0 [facility] Comment on above: Performed By: #### C BC #### [facility] [address] [place] [address] ABD/PELVIS WO CONon [...] Date: 2022-01-09 13:38 Normal [facility] ER URINE PROFILEon 2 Bilirubin Ql (U) Negative Normal NEGATIVE [facility] Comment on above: Performed By: #### I NSULIN #### [facility] [address] [address] [address] Carolyn King Clarity (U) CLEAR Normal CLEAR [facility] Comment on above: Performed By: #### I NSULIN #### [facility] [address] [address] [address] Carolyn King Color (U) LT. YELLOW Normal YELLOW [facility] Comment on above: Performed By: #### I NSULIN #### [facility] [address] [address] [address] Carolyn King ERUAHD A micrscopic examina tion will be performed if indicated. Normal [facility] Comment on above: Performed By: #### I NSULIN #### [facility] [address] [address] [address] Carolyn King Glucose Ql (U) Negative Normal NEGATIVE [facility] Comment on above: Performed By: #### I NSULIN #### [facility] [address] [place] [address] Dr. Carolyn King Hemoglobin Ql (U) MODERATE Abnormal NEGATIVE [facility] Comment on above: Performed By: #### I NSULIN #### [facility] [address] [address] [address] Carolyn King Ketones Ql (U) Negative Normal NEGATIVE [facility] Comment on above: Performed By: #### I NSULIN #### [facility] [address] [place] [address] Dr. Carolyn King LEUKOCYTES Negative Normal NEGATIVE [facility] Comment on above: Performed By: #### I NSULIN #### [facility] [address] [place] [address] Dr. Carolyn King Nitrite Ql (U) Negative Normal NEGATIVE [facility] Comment on above: Performed By: #### I NSULIN #### [facility] [address] [place] [address] Dr. Carolyn King pH (U) 6.0 [pH] Normal 5-9 [facility] Comment on above: Performed By: #### I NSULIN #### [facility] [address] [place] [address] Dr. Carolyn King SPEC GRAVITY 1.010 Normal 1.005-<=1. 025 [facility] Comment on above: Performed By: #### I NSULIN #### [facility] [address] [address] [address] Carolyn King UA PROTEIN Negative Normal NEGATIVE/ TRACE [facility] Comment on above: Performed By: #### I NSULIN #### [facility] [address] [place] [address] Dr. Carolyn King UR MICRO IND INDICATED Normal [facility] Comment on above: Performed By: #### I NSULIN #### [facility] [address] [place] [address] Dr. Carolyn King Urobilinogen Qn (U) 0.2 {Keren'U}/dL Normal 0.2 - 1. 0 [facility] Comment on above: Performed By: #### I NSULIN #### [facility] [address] [place] [address] Dr. Carolyn King LIPASEon 01-09-2022 Lipase [Catalytic activity/Vol] 98.0 U/L Normal 73.0-393.0 [facility] Comment on above: Performed By: #### I NSULIN #### [facility] [address] [place] [address] Dr. Carolyn King PROF 14(COMP METB)on 022 Albumin [Mass/Vol] 4.0 g/dL Normal 3.4-5.0 [facility] Comment on above: Performed By: #### I NSULIN #### [facility] [address] [place] [address] Dr. Carolyn King Albumin/Globulin [Mass ratio] 1.1 {ratio} Normal [facility] Comment on above: Performed By: #### I NSULIN #### [facility] [address] [place] [address] Dr. Carolyn King ALP [Catalytic activity/Vol] 112 U/L Normal 46-116 [facility] Comment on above: Performed By: #### I NSULIN #### [facility] [address] [place] [address] Dr. Carolyn King ALT [Catalytic activity/Vol] 27 U/L Normal 16-63 [facility] Comment on above: Performed By: #### I NSULIN #### [facility] [address] [place] [address] Dr. Carolyn King Anion gap [Moles/Vol] 14.9 mmol/L Normal Th [facility] Comment on above: Performed By: #### I NSULIN #### [facility] [address] [place] [address] Dr. Carolyn King AST [Catalytic activity/Vol] 22 U/L Normal 15-37 [facility] Comment on above: Performed By: #### I NSULIN #### [facility] [address] [address] [address] Carolyn King Bilirubin [Mass/Vol] 0.5 mg/dL Normal 0.2-1.0 [facility] Comment on above: Performed By: #### I NSULIN #### [facility] [address] [address] [address] Carolyn King Calcium [Mass/Vol] 9.1 mg/dL Normal 8.5-10.1 [facility] Comment on above: Performed By: #### I NSULIN #### [facility] [address] [address] [address] Carolyn King Chloride [Moles/Vol] 103 mmol/L Normal 98-107 [facility] Comment on above: Performed By: #### I NSULIN #### [facility] [address] [place] [address] Dr. Carolyn King CO2 [Moles/Vol] 26.0 mmol/L Normal 21.0-32.0 [facility] Comment on above: Performed By: #### I NSULIN #### [facility] [address] [place] [address] Dr. Carolyn King Creatinine [Mass/Vol] 1.09 mg/dL Normal 0.70-1.30 [facility] Comment on above: Performed By: #### I NSULIN #### [facility] [address] [place] [address] Dr. Carolyn King EGFR-AF TUVALUAN >60 Normal >=60 [facility] Comment on above: Performed By: #### I NSULIN #### [facility] [address] [address] [address] Carolyn King EGFR-NON AF TUVALUAN >60 Normal >=60 [facility] Comment on above: Performed By: #### I NSULIN #### [facility] [address] [place] [address] Dr. Carolyn King Globulin (S) [Mass/Vol] 3.8 g/dL Normal [facility] Comment on above: Performed By: #### I NSULIN #### [facility] [address] [address] [address] Carolyn King Glucose [Mass/Vol] 97 mg/dL Normal 74-106 [facility] Comment on above: Performed By: #### I NSULIN #### [facility] [address] [address] [address] Carolyn King Potassium [Moles/Vol] 3.9 mmol/L Normal 3.5-5.1 [facility] Comment on above: Performed By: #### I NSULIN #### [facility] [address] [address] [address] Carolyn King Protein [Mass/Vol] 7.8 g/dL Normal 6.4-8.2 [facility] Comment on above: Performed By: #### I NSULIN #### [facility] [address] [place] [address] Dr. Carolyn King Sodium [Moles/Vol] 140 mmol/L Normal 136-145 [facility] Comment on above: Performed By: #### I NSULIN #### [facility] [address] [place] [address] Dr. Carolyn King Urea nitrogen [Mass/Vol] 16.0 mg/dL Normal 7.0-18.0 [facility] Comment on above: Performed By: #### I NSULIN #### [facility] [address] [place] [address] Dr. Carolyn King Urea nitrogen/Creatinine [Mass ratio] 14.7 mg/mg Normal [facility] Comment on above: Performed By: #### I NSULIN #### [facility] [address] [address] [address] Carolyn King URINE MICROSCOPIC ONLYon BACTERIA NONE SEEN Normal NONE SEEN [facility] Comment on above: Performed By: #### I NSULIN #### [facility] [address] [place] [address] Dr. Carolyn King Bacteria identified Cx Nom (U) NOT INDICATED Normal [facility] Comment on above: Performed By: #### I NSULIN #### [facility] [address] [place] [address] Dr. Carolyn King CAST NONE SEEN Normal NONE SEEN [facility] Comment on above: Performed By: #### I NSULIN #### [facility] [address] [place] [address] Dr. Carolyn King Crystals LM Nom (Urine sed) NONE SEEN Normal NONE SEEN [facility] Comment on above: Performed By: #### I NSULIN #### [facility] [address] [place] [address] Dr. Carolyn King Epithelial cells LM Ql (Urine sed) NONE SEEN Normal NONE SEEN /RARE [facility] Comment on above: Performed By: #### I NSULIN #### [facility] [address] [place] [address] Dr. Carolyn King MUCOUS NONE SEEN Normal NONE SEEN [facility] Comment on above: Performed By: #### I NSULIN #### [facility] [address] [place] [address] Dr. Carolyn King RBC 2-5 Abnormal 0-2 [facility] Comment on above: Performed By: #### I NSULIN #### [facility] [address] [place] [address] Dr. Carolyn King WBC 0-2 Abnormal NONE SEEN [facility] Comment on above: Performed By: #### I NSULIN #### [facility] [address] [place] [address] Dr. Carolyn King US SINGLE QUAD RT [...] by: BANDAR QUEZADA Date: 2022-01-05 10:15 Normal [facility] [place] HEPATOBILIARY SCAN W EFon 12-27-2021 [place] HEPATOBILIARY SCAN W EF HISTORY: Right upper [...] LAURY SNYDER Date: 2021-12-27 12:16 Normal [facility] CT ABD/PELV W CONon 12-12-19 CT ABD/PELV [...] LAURY ZEPEDA Date: 2021-12-11 07:30 Normal [facility] CREATININEon 12-09-2021 Creatinine [Mass/Vol] 0.98 mg/dL Normal 0.70-1.30 [facility] Comment on above: Performed By: #### I NSULIN #### [facility] [address] [address] [address] Carolyn King EGFR-AF TUVALUAN >60 Normal >=60 [facility] Comment on above: Performed By: #### I NSULIN #### [facility] [address] [address] [address] Carolyn King EGFR-NON AF TUVALUAN >60 Normal >=60 [facility] Comment on above: Performed By: #### I NSULIN #### [facility] [address] [address] [address] Carolyn King BN SPINE, LUMBOSACRAL; 2 OR 3 VIEWSon 11-08-2021 BN SPINE, LUMBOSACRAL; 2 OR 3 VIEWS Patient Name: JAY CARR STUDY: Lumbar spine dated 11/08/2021. INDICATION: AP/LAT M54.50: Lumbar back pain M48.062: Lumbar stenosis with neurogenic claudication COMPARISON: None. ACCESSION NUMBER(S): [id number] ORDERING CLINICIAN: KENTON LAWSON TECHNIQUE: AP and [...] above. Electronically signed by: BATSHEVA VIDAL MD [facility] Post Op (Orthopaedic Surgery [...] Work Phone: CBCon 09-29-2021 HCT Canceled Normal [facility] Comment on above: Order Comment: TEST CBC WAS CANCELLED, 09/29/2021 08:10 NO SPECIMEN RECEIVED IN LAB. Performed By: #### C BC ####[id number] [place] [address] HGB Canceled Normal [facility] Comment on above: Order Comment: TEST CBC WAS CANCELLED, 09/29/2021 08:10 NO SPECIMEN RECEIVED IN LAB. Performed By: #### C BC ####[id number] [place] [address] MCHC Canceled Normal [facility] Comment on above: Order Comment: TEST CBC WAS CANCELLED, 09/29/2021 08:10 NO SPECIMEN RECEIVED IN LAB. Performed By: #### C BC ####[id number] [place] [address] MCV Canceled Normal [facility] Comment on above: Order Comment: TEST CBC WAS CANCELLED, 09/29/2021 08:10 NO SPECIMEN RECEIVED IN LAB. Performed By: #### C BC ####[id number] [place] [address] NUCLEATED RBC Canceled Normal [facility] Comment on above: Order Comment: TEST CBC WAS CANCELLED, 09/29/2021 08:10 NO SPECIMEN RECEIVED IN LAB. Performed By: #### C BC ####[id number] [place] [address] PLT Canceled Normal [facility] Comment on above: Order Comment: TEST CBC WAS CANCELLED, 09/29/2021 08:10 NO SPECIMEN RECEIVED IN LAB. Performed By: #### C BC ####[id number] [place] [address] RBC Canceled Normal [facility] Comment on above: Order Comment: TEST CBC WAS CANCELLED, 09/29/2021 08:10 NO SPECIMEN RECEIVED IN LAB. Performed By: #### C BC ####[id number] [place] [address] RDW-CV Canceled Normal [facility] Comment on above: Order Comment: TEST CBC WAS CANCELLED, 09/29/2021 08:10 NO SPECIMEN RECEIVED IN LAB. Performed By: #### C BC ####[id number] [place] [address] WBC Canceled Normal [facility] Comment on above: Order Comment: TEST CBC WAS CANCELLED, 09/29/2021 08:10 NO SPECIMEN RECEIVED IN LAB. Performed By: #### C BC ####[id number] [place] [address] BASIC METABOLIC PANELon ANION GAP Canceled Normal [facility] Comment on above: Order Comment: TEST BASIC METABOLIC PANEL WAS CANCELLED, 09/28/2021 04:56 Performed By: #### B MP ####[id number] [place] [address] BICARBONATE Canceled Normal [facility] Comment on above: Order Comment: TEST BASIC METABOLIC PANEL WAS CANCELLED, 09/28/2021 04:56 Performed By: #### B MP ####[id number] [place] [address] CALCIUM Canceled Normal [facility] Comment on above: Order Comment: TEST BASIC METABOLIC PANEL WAS CANCELLED, 09/28/2021 04:56 Performed By: #### B MP ####[id number] [place] [address] CHLORIDE Canceled Normal [facility] Comment on above: Order Comment: TEST BASIC METABOLIC PANEL WAS CANCELLED, 09/28/2021 04:56 Performed By: #### B MP ####[id number] [place] [address] CREATININE Canceled Normal [facility] Comment on above: Order Comment: TEST BASIC METABOLIC PANEL WAS CANCELLED, 09/28/2021 04:56 Performed By: #### B MP ####[id number] [place] [address] eGFR FEMALE Canceled Normal [facility] Comment on above: Order Comment: TEST BASIC METABOLIC PANEL WAS CANCELLED, 09/28/2021 04:56 Result Comment: CALC ULATIONS OF ESTIMATED GFR ARE PERFORMED USING THE 2020 CKD-EPI STUDY REFIT EQUATION WITHOUT THE RACE VARIABLE FOR THE IDMS-TRACEABLE CREATININE METHODS. https://jasn.asnjournals.org/content/early//ASN.07098 20911 Performed By: #### B MP ####[id number] [place] [address] eGFR MALE Canceled Normal [facility] Comment on above: Order Comment: TEST BASIC METABOLIC PANEL WAS CANCELLED, 09/28/2021 04:56 Result Comment: CALC ULATIONS OF ESTIMATED GFR ARE PERFORMED USING THE 2020 CKD-EPI STUDY REFIT EQUATION WITHOUT THE RACE VARIABLE FOR THE IDMS-TRACEABLE CREATININE METHODS. https://jasn.asnjournals.org/content//ASN.84794 21279 Performed By: #### B MP ####[id number] [place] [address] GLUCOSE Canceled Normal [facility] Comment on above: Order Comment: TEST BASIC METABOLIC PANEL WAS CANCELLED, 09/28/2021 04:56 Performed By: #### B MP ####[id number] [place] [address] POTASSIUM Canceled Normal [facility] Comment on above: Order Comment: TEST BASIC METABOLIC PANEL WAS CANCELLED, 09/28/2021 04:56 Performed By: #### B MP ####[id number] [place] [address] SODIUM Canceled Normal [facility] Comment on above: Order Comment: TEST BASIC METABOLIC PANEL WAS CANCELLED, 09/28/2021 04:56 Performed By: #### B MP ####[id number] [place] [address] UREA NITROGEN Canceled Normal [facility] Comment on above: Order Comment: TEST BASIC METABOLIC PANEL WAS CANCELLED, 09/28/2021 04:56 Performed By: #### B MP ####[id number] [place] [address] BASIC METABOLIC PANELon 04-0 Anion gap [Moles/Vol] 16 mmol/L Normal 10 - 20 [facility] Comment on above: Performed By: #### B MP #### [id number] [place] [address] Calcium [Mass/Vol] 9.0 mg/dL Normal 8.6 - 10.6 [facility] Comment on above: Performed By: #### B MP #### [facility] [address] [place] [address] Chloride [Moles/Vol] 103 mmol/L Normal 98 - 107 [facility] Comment on above: Performed By: #### B MP #### [facility] [address] [place] [address] Creatinine [Mass/Vol] 0.83 mg/dL Normal 0.50 - 1.30 [facility] Comment on above: Performed By: #### B MP #### [facility] [address] [place] [address] eGFR MALE >90 Normal >90 [facility] Comment on above: Result Comment: CALC ULATIONS OF ESTIMATED GFR ARE PERFORMED USING THE 2020 CKD-EPI STUDY REFIT EQUATION WITHOUT THE RACE VARIABLE FOR THE IDMS-TRACEABLE CREATININE METHODS. https://jasn.asnjournals.org/content/early//ASN.97765 34434 Performed By: #### B MP #### [facility] [address] [place] [address] Glucose [Mass/Vol] 141 mg/dL High 74 - 99 [facility] Comment on above: Performed By: #### B MP #### [facility] [address] [place] [address] HCO3 (Bld) [Moles/Vol] 24 mmol/L Normal 21 - 32 [facility] Comment on above: Performed By: #### B MP #### [facility] [address] [place] [address] Potassium [Moles/Vol] 4.4 mmol/L Normal 3.5 - 5.3 [facility] Comment on above: Performed By: #### B MP #### [facility] [address] [place] [address] Sodium [Moles/Vol] 139 mmol/L Normal 136 - 145 [facility] Comment on above: Performed By: #### B MP #### [facility] [address] [place] [address] Urea nitrogen [Mass/Vol] 13 mg/dL Normal 6 - 23 [facility] Comment on above: Performed By: #### B MP #### [facility] [address] [place] [address] CBCon 09-27-2021 HCT Canceled Normal [facility] Comment on above: Order Comment: TEST URINALYSIS WAS CANCELLED, 09/19/2021 12:02 DUPLICATE ORDER. Performed By: #### U A #### [facility] [address] [place] [address] HGB Canceled Normal [facility] Comment on above: Order Comment: TEST URINALYSIS WAS CANCELLED, 09/19/2021 12:02 DUPLICATE ORDER. Performed By: #### U A #### [facility] [address] [place] [address] MCHC Canceled Normal [facility] Comment on above: Order Comment: TEST URINALYSIS WAS CANCELLED, 09/19/2021 12:02 DUPLICATE ORDER. Performed By: #### U A #### [facility] [address] [place] [address] MCV Canceled Normal [facility] Comment on above: Order Comment: TEST URINALYSIS WAS CANCELLED, 09/19/2021 12:02 DUPLICATE ORDER. Performed By: #### U A #### [facility] [address] [place] [address] NUCLEATED RBC Canceled Normal [facility] Comment on above: Order Comment: TEST URINALYSIS WAS CANCELLED, 09/19/2021 12:02 DUPLICATE ORDER. Performed By: #### U A #### [facility] [address] [place] [address] PLT Canceled Normal [facility] Comment on above: Order Comment: TEST URINALYSIS WAS CANCELLED, 09/19/2021 12:02 DUPLICATE ORDER. Performed By: #### U A #### [facility] [address] [place] [address] RBC Canceled Normal [facility] Comment on above: Order Comment: TEST URINALYSIS WAS CANCELLED, 09/19/2021 12:02 DUPLICATE ORDER. Performed By: #### U A #### [facility] [address] [place] [address] RDW-CV Canceled Normal [facility] Comment on above: Order Comment: TEST URINALYSIS WAS CANCELLED, 09/19/2021 12:02 DUPLICATE ORDER. Performed By: #### U A #### [facility] [address] [place] [address] WBC Canceled Normal [facility] Comment on above: Order Comment: TEST URINALYSIS WAS CANCELLED, 09/19/2021 12:02 DUPLICATE ORDER. Performed By: #### U A #### [facility] [address] [place] [address] Erythrocyte distribution width (RBC) [Ratio] 13.1 % Normal 11.5 - 14.5 [facility] Comment on above: Performed By: #### U A #### [facility] [address] [place] [address] Hematocrit (Bld) [Volume fraction] 41.3 % Normal 41.0 - 52.0 [facility] Comment on above: Performed By: #### U A #### [facility] [address] [place] [address] Hemoglobin (Bld) [Mass/Vol] 14.1 g/dL Normal 13.5 - 17.5 [facility] Comment on above: Performed By: #### U A #### [facility] [address] [place] [address] MCHC (RBC) [Mass/Vol] 34.1 g/dL Normal 32.0 - 36.0 [facility] Comment on above: Performed By: #### U A #### [facility] [address] [place] [address] MCV (RBC) [Entitic vol] 93 fL Normal 80 - 100 [facility] Comment on above: Performed By: #### U A #### [facility] [address] [place] [address] NUCLEATED RBC 0.0 /100 WBC Normal 0.0-0.0 [facility] Comment on above: Performed By: #### U A #### [facility] [address] [place] [address] Platelets (Bld) [#/Vol] 217 10*3/uL Normal 150 - 450 [facility] Comment on above: Performed By: #### U A #### [facility] [address] [place] [address] RBC 4.42 x10E12/L Low 4.50 - 5.90 [facility] Comment on above: Performed By: #### U A #### [facility] [address] [place] [address] WBC (Bld) [#/Vol] 13.6 10*3/uL High 4.4 - 11.3 [facility] Comment on above: Performed By: #### U A #### [facility] [address] [place] [address] Daily Progress Note-Orthopae kaison 09-27-2021 Daily Progress Note-Orthopaedics Service: Orthopaedics Subjective Data: JAY CARR is a 61 year old Male who is Hospital Day # 2 and POD #1 for 1. XLIF L3/4, 4/5;2. Navigated percutaneous PSIF L3-5. Patient resting comfortably in bed. Pain well controlled. Denies CP, SOB, F/C, N/V. No new N/T. Objective Data: Objective Information: T PRBPMAPSpO2 [id number]/7598% Date/Time09/27 5: 5: 5: 5: 5:39 Range(36.5C [...] Recent Arterial Blood Gas Results 09/26/2021 12:37 [id number] pH7.37 [id number] Base Excess0.8null Assessment and Plan: Code Status: Code StatusFull Code Assessment: 61 y/o male s/p L3/4-4/5 XLIF, L3-5 perc PSIF on 09/26/[address] Richardson, doing well. Plan: - WB status: WBAT, no excessive bending/twisting - DVT ppx: SCDs + Teds at all times while in bed, ambulation - Diet: Clear liquid diet, ADAT to regular - CROWN POUNCER => PO pain medication per pain protocol [...] Timothy Steinberg M.D. Orthopaedic Surgery, PGY-2 Pager: [phone] Orthopaedic Spine Team Brannon Steinberg, PGY-2 [phone] - 1st call Orquidea Akbar PGY-4 [phone] - 2nd call Available via Doc Halo After 5pm-7am, weekends, holidays please page [phone] for ground nuclear weapons assembly officer resident for urgent questions/concerns. Attestation: Note Completion: [...] the note. I personally evaluated the patient [id number] Electronic Signatures: Sal Richardson) (Signed 29-Sep-2021 11:37) Authored: Note Completion Co-Signer: Service, Subjective Data, Objective Data, Assessment and Plan, Note Completion Timothy Steinberg (Resident)) (Signed 27-Sep-2021 06:49) Authored: Service, Subjective Data, Objective Data, Assessment and Plan, Note Completion Last Updated: 29-Sep-2021 11:37 by Sal Richardson) Normal [facility] Order Reconciliationon 09-27 Order Reconciliation [...] unarousable, and respiratory rate lessClinician Notes: HOLD CROWN POUNCER Infusion and notify H.O. immediately 26-Sep-2021 15:16 [...] at Discharge: (more content not included)... Normal [facility] PT Evaluation [id number] t - co-tx c/ OT for maximized saon 09-27-2021 PT Evaluation l7-hj-[id number] - co-tx c/ OT for maximized sa Rehab: Info: Mode of Treatmentco-treatment; physical therapy; co-tx c/ OT for maximized safety and mobility Time IN10:00 Time OUT10:27 Total Treatment [id number] Patient in ... at end of sessionchair; alarm on Communicated with ... at end of sessionbedside nurse Patient Effortexcellent Symptoms Noted During/After Treatmentnone Patient Profile Reviewedyes Onset of Illness/Injury or Date of [id number]-5123 Reason for ReferralXLIF L3/4, 4/5;2. Navigated percutaneous [...] Mobility/Tone: Bed Mobility Assessment/Interventions supine to sit Hnofkd-xh-Ves [place] (Bed Mobility)standby assist; 1 person assist Assistive Device (Bed Mobility)bed rails Comment, Bed MobilityPt. educated on log roll Transfer Assessment/Interventions sit to stand transfer; stand to sit transfer; bed to chair transfer Bed-Chair [place] (Transfers)1 person assist; standby assist; verbal cues Sit-Stand [place] (Transfers)standby assist; 1 person assist Sit-Stand Assistive Device (Transfers)no AD Stand-Sit [place] (Transfers)standby assist; 1 person assist Stand-Sit Assistive [...] Motor: Sitting, Static (Balance)SBA Sitting, Dynamic (Balance)SBA Nbz-ca-Betfj (Balance)SBA Standing, Static (Balance)SBA Standing, Dynamic (Balance)SBA [...] goals Thera (more content not included)... Normal [facility] ARTERIAL FULL PANELon 2021 Anion gap [Moles/Vol] 11 mmol/L Normal 10 - 25 [facility] Comment on above: Performed By: #### A FPA4 #### [facility] [address] [place] [address] BASE EXCESS-BLOOD 0.8 mmol/L Normal -2.0 - 3.0 [facility] Comment on above: Performed By: #### A FPA4 #### [facility] [address] [place] [address] BICARB, CALCULATED 26.6 mmol/L High 22.0 - 26.0 [facility] Comment on above: Performed By: #### A FPA4 #### [facility] [address] [place] [address] CALCIUM,IONIZED 1.15 mmol/L Normal 1.10 - 1.33 [facility] Comment on above: Performed By: #### A FPA4 #### [facility] [address] [place] [address] Chloride [Moles/Vol] 102 mmol/L Normal 98 - 107 [facility] Comment on above: Performed By: #### A FPA4 #### [facility] [address] [place] [address] Glucose [Mass/Vol] 114 mg/dL High 74 - 99 [facility] Comment on above: Performed By: #### A FPA4 #### [facility] [address] [place] [address] Hematocrit (Bld) [Volume fraction] 42.0 % Normal 41.0 - 52.0 [facility] Comment on above: Performed By: #### A FPA4 #### [facility] [address] [place] [address] Hemoglobin (Bld) [Mass/Vol] 14.1 g/dL Normal 13.5 - 17.5 [facility] Comment on above: Performed By: #### A FPA4 #### [facility] [address] [place] [address] Lactate [Moles/Vol] 1.3 mmol/L Normal 0.4 - 2.0 [facility] Comment on above: Performed By: #### A FPA4 #### [facility] [address] [place] [address] OXY HGB 97.5 % Normal 94.0 - 98.0 [facility] Comment on above: Performed By: #### A FPA4 #### [facility] [address] [place] [address] Oxygen (Bld) [Partial pressure] 160 mm[Hg] High 85 - 95 [facility] Comment on above: Performed By: #### A FPA4 #### [facility] [address] [place] [address] PATIENT TEMPERATURE 37.0 degrees C Normal [facility] Comment on above: Result Comment: NOTE : PATIENT RESULTS ARE NOT CORRECTED FOR TEMPERATURE. Performed By: #### A FPA4 #### [facility] [address] [place] [address] PCO2 46 mmHg High 38 - 42 [facility] Comment on above: Performed By: #### A FPA4 #### [facility] [address] [place] [address] pH (Bld) 7.37 [pH] Low 7.38 - 7.42 [facility] Comment on above: Performed By: #### A FPA4 #### [facility] [address] [place] [address] Potassium [Moles/Vol] 4.8 mmol/L Normal 3.5 - 5.3 [facility] Comment on above: Performed By: #### A FPA4 #### [facility] [address] [place] [address] SO2 100 % Normal 94 - 100 [facility] Comment on above: Performed By: #### A FPA4 #### [facility] [address] [place] [address] Sodium [Moles/Vol] 135 mmol/L Low 136 - 145 [facility] Comment on above: Performed By: #### A FPA4 #### [facility] [address] [place] [address] Admission Risk Screen - Adul ton 09-26-2021 [...] AlertFor Ebola-like Symptoms: Isolate Patient and Notify Provider/Merchant Seaman For Contact: Notify Provider/Merchant Seaman Advance Directive: Advance Directive/DNRno Advance Directive Information [...] Communicatenone Learning Preferencesaudio Cultural Considerationsnone Developmental Considerationsnone Anabaptist Considerationsnone Learning Assessment (Other Learner): Other learner availableno Depression Screen: During the past month, have you often been bothered by feeling down, depressed or hopelessno During the past month, have you often had little interest or pleasure in doing thingsno Have you had any thoughts of harming anyone elseno Griffin Suicide: Risk Screen Not Applicable/Able to Answerable to be screened In the Past Month: Have you wished you were or could go to sleep and not wake upno(1) In the Past Month: Have you had any actual thoughts of killing yourself no(1) Lifetime: Have you ever done, started to do, or prepared to do anything to end your lifeno(1) Griffin Suicide Risknegative Adult Nutrition Screen: Have you [...] Spiritual Screen: Are there any cultural, spiritual, nondenominational practices/values/needs that are important for us to knowno CAGE: Is this an injured patient at a Trauma Center ([facility]/Buddy/Bernabe/[place] /[place]): no Vaccinations: Vaccination - Influenza Vaccination Screen: Is it flu season (between and September 21)Yes Screening for identified contraindications to influenza vaccinationpatient already received vaccine this season Vaccination - Pneumonia Vaccination Screen: Patient has received a previous pneumonia vaccine:no/unknown... Immunocompetent persons with underlying chronic conditions or r (more content not included)... Normal [facility] Daily Progress Note-Orthopae dicson 09-26-2021 [...] Recent Arterial Blood Gas Results 09/26/2021 12:37 [id number] pH7.37 [id number] Base Excess0.8null Assessment and Plan: Code Status: Code StatusFull Code Assessment: 61 y/o male s/p L3/4-4/5 XLIF, L3-5 perc PSIF on 09/26/[address] Richardson, doing well. Plan: - WB status: WBAT, no excessive bending/twisting - DVT ppx: SCDs + Teds at all times while in bed, ambulation - Diet: Clear liquid diet, ADAT to regular - CROWN POUNCER => PO pain medication per pain protocol - 24 hr perioperative abx: clinda x 4 doses - FEN: Continue NS at 100cc/hr; HLIV with good PO intake - Bowel Regimen: Colace, Dulcolax, Senna - PT/OT consult - Continue home medications - Discontinue goodrich catheter POD #1 - Decadron 4mg q6hr x4 doses Dispo: to VERONICA Steinberg M.D. Orthopaedic Surgery, PGY-2 Pager: [phone] Orthopaedic Spine Team Brannon Steinberg, PGY-2 [phone] - 1st call Orquidea Akbar PGY-4 [phone] - 2nd call Available via Doc Halo After 5pm-7am, weekends, holidays please page [phone] for ground nuclear weapons assembly officer resident for urgent questions/concerns. Attestation: Note Completion: [...] the note. I personally evaluated the patient [id number] Electronic Signatures: Sal Richardson) (Signed 29-Sep-2021 11:38) Authored: Note Completion Co-Signer: Service, Subjective Data, Objective Data, Assessment and Plan, Note Completion Timothy Steinberg (Resident)) (Signed 26-Sep-2021 15:36) Authored: Service, Subjective Data, Objective Data, Assessment and Plan, Note Completion Last Updated: 29-Sep-2021 11:38 by Sal Richardson) Normal [facility] Discharge Planning [id number] 0 09-26-2021 Discharge Planning Note2 Discharge Planning: Planned Dispositionhome Anticipated Discharge [id number] Discharge Planning 09/27/21 1335 Transitional Care Coordination Progress Note: TCC verified demo is correct. lives at home with . pcp dania armstrong. received covid vaccine x2 and booster x1. feels safe to return home today Patient discussed during interdisciplinary rounds. Team members present: MD/GINGER FARMER, TCC, Plan per Medical/Surgical team: patient goodrich out. 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 MR for dc after working with PT OT today Status: inpatient Payor source: commercial Discharge disposition: home no needs per PT OT eval Potential Barriers: ADOD: today Calli Jones RN TCC 09/27/21 Patient discharged home with . Heather Foster RN Assessment: Discharge Planning Assessment [id number] Discharge Planning Assessment Completed bycalli jones RN TCC Primary Contact Name and Numberwife gus- [phone] Prior Level of FunctioningNA Lives Withspouse(1) Living Arrangementshouse(1) Stated Reason for Admissionback and hip pain(1) [place] ([place]) PCPDania Armstrong [facility] Recent Falls/ Injury/ Need Assist with AmbulationNA DME Supplier Name/NumberNA Home Care Agency/Support ServicesNA Diabetic/Supplies NeededNA Hemodialysis ScheduleNA Resource/Environmental Concernsnone(1) Anticipated Transition [place](1) Services Anticipated at Transitionnon(1) Readmission Within the [...] (diet, activity, pt instructions)yes Discharge Documentation: Discharge/Transfer Date/Thvn61-Ujq-8171 17:00 Discharged Accompanied Byspouse Discharge Modewheelchair Transportation Methodprivate car Code StatusCode Status order at time of discharge: Full Code [place] DNR Form Sent with Patient and/or Familyn/a Valuables/Medications/Be longings Returnedyes [facility] Electronic Signatures: HEDY SHEPPARD) (Signed 26-Sep-2021 21:59) Authored: Discharge Planning, Assessment, Discharge Documentation Heather Foster) (Signed 27-Sep-2021 17:12) Authored: Discharge Planning, Nursing Checklist, Discharge Documentation Calli Jones (RN) (Signed 27-Sep-2021 13:35) Authored: Discharge Planning, Assessment Last Updated: 27-Sep-2021 17:12 by Heather Foster (RN) References: 1. Data Referenced From Patient Profile - Adult v2 26-Sep-2021 21:07 Normal [facility] Discharge [id number] [id number] Discharge Profile2 Discharge Orders: Anticipated Discharge Date: Anticipated Discharge [id number] Problem List: Additional Dx: Lumbar radicular pain: [...] ANTONIO REMOVED IN 3 WKS. [facility] [place] [address] [facility]21 AT 0930 WITH [facility]. REHAB FACILITIES OR HOME CARE MAY REMOVE ANTONIO OR SUTURES. Wound Care 2: Wound SiteBACK (Lumbar Spine) Wound Typesurgical incision Change Dressingdaily Cleanse Withsoap and water Cover Withabdominal dressing Tape Withpaper tape Instructionsno lotions, creams, or tub soaks Other InstructionsPLEASE HAVE ANTONIO REMOVED IN 3 WKS. [facility] [place] [address] [facility] 5TH FLOOR ON 10/18/2021 AT 0930 [...] floor. Patient was initially started on dilaudid CROWN POUNCER x24 hours and then transitioned to an [...] Call to Schedule in6 weeks, PLEASE CALL [phone] TO SCHEDULE YOUR AMBER (more content not included)... Normal [facility] [place] [facility] PREOPERATIVE DIAGNOSIS: Spinal stenosis and spondylolisthesis L3-4 and L4-5 in a patient with unrelenting claudication and radiculopathy. POSTOPERATIVE DIAGNOSIS: Spinal stenosis and spondylolisthesis L3-4 and L4-5 in a patient with unrelenting claudication and radiculopathy. OPERATION/PROCEDURE: Anterior lumbar interbody fusion by extreme lateral approach at L3-4 and L4-5 with use of interbody cage device x2. SURGEON: Sal Richardson MD. SCIENTIFIC INFORMATICS LEADER(S): players assistant: Cb Casanova PA-C. Second assistant athletic trainer: Brannon Steinberg, second resident. ANESTHESIA: ESTIMATED BLOOD [...] Deep layers were repaired using 0 Vicryl eeotuf-qe-cwurz sutures, deep dermal layer was repaired using 2-0 Vicryl sutures, and the skin was repaired using antonio. Dry sterile dressing was ap (more content not included)... Normal [facility] Operative Reports - [facility] [place] PREOPERATIVE DIAGNOSIS: POSTOPERATIVE DIAGNOSIS: [...] Deep layers were repaired using 0 Vicryl ifpxes-rr-rwmrs sutures, deep dermal layer was repaired using [...] instrumentation and fusion. SURGEON: Sal Richardson MD. SCIENTIFIC INFORMATICS LEADER(S): ANESTHESIA: This is part 2 of a two-staged procedure. Part 1 was dictated in dictation #[id number]. Refer to dictation #[id number] for all details regarding the first part of the surgery. Sal Richardson MD EST EST DICTATION NUMBER: [id number] INTERNAL JOB NUMBER: [id number] CC: Sal Richardson MD, Electronic Signatures: Sal Richardson) (Signed on 03-Oct-2021 12:03) Authored Unsigned, Draft (SYS GENERATED) (Entered on 30-Sep-2021 07:37) Entered Last Updated: 03-Oct-2021 12:03 by Sal Richardson) [facility] Order Reconciliationon 09-26 Order Reconciliation Page 1 Admission Reconciliation Document Reconciliation Type: Admission from OR requested on behalf of Timothy Steinberg (Resident) done by Timothy Steinberg (Resident)) Admission from OR - Reconciliation: 26-Sep-2021 18:10 by: Timothy Steinberg (Resident)) Home MedicationsEnteredLast Dose TakenReconciled with current Order Reconciliation Comment/ Additional Information hydroxychloroquine 200 mg oral tablet 1 tab(s) oral 2 times a [id number]-Sep-2021 Hydroxychloroquine - PEDS Tablet (PLAQUENIL)DOSE = 200 mg Oral 2 Times a Dayhydroxychloroquine 200 mg oral tablet continued as the inpatient order Hydroxychloroquine - PEDS irbesartan 300 mg oral tablet 1 tab(s) oral once a [id number] 2 Reviewed and Held methocarbamol 500 mg oral tablet 2 tab(s) oral every 8 [id number]-Sep-2021 Reviewed and Held NIFEdipine 30 mg oral tablet, extended release 1 tab(s) oral once a day NIFEdipine (PROCARDIA XL) Extended Release Tablet, Extended ReleaseDOSE = 30 mg Oral DailyNIFEdipine 30 mg oral tablet, extended release continued as the inpatient order NIFEdipine (PROCARDIA XL) Extended Release pantoprazole 40 mg oral delayed release tablet 1 tab(s) oral once a day [id number] Pantoprazole Enteric Coated Tablet (PROTONIX)DOSE = 40 mg Oral Dailypantoprazole 40 mg oral delayed release tablet continued as the inpatient order Pantoprazole tiZANidine 4 mg oral tablet 1 oral Reviewed and Held Vitamin C 1 3 times a [id number] 2 Reviewed and Held Vitamin D3 1 3 times a [id number] 2 Reviewed and Held Zinc 140 mg [...] of 4 mg regardless of dose. HYDROmorphone CROWN POUNCER 25 mg/ NaCL 0.9% 50 mL (DILAUDID IV CROWN POUNCER)DEMAND/ CROWN POUNCER Dose = 0.2 mgDELAY/ Lockout Time Period [...] unarousable, and respiratory rate lessClinician Notes: HOLD CROWN POUNCER Infusion and notify H.O. immediately Ondansetron Injectable [...] hours: Do NOT use with Bisacodyl. Normal [facility] Patient Profile - Adult v2on 09-26-2021 Patient Profile - Adult v2 Profile: Initial Info: How to be AddressedPaul(1) Spoken Language PreferredEnglish (1) Stated Reason for Admissionback and hip pain Wants Family/Rep Notified of Admissionno Notify PCPdo not notify PCP Informed of Patient Visiting Rightsyes [place] Patient Belongingsremains with patient Patient Belongings Remaining [...] From 1. Vital Signs 26-Sep-2021 07:09 Normal [facility] [facility] - Preop v3on 09-26-2021 Patient Profile - Preop v3 Patient Profile - Preop: Initial Info: Patient DemographicsName: JAY CARR Date: 1960 Address: [address] [place] [address].[address] [facility] [address] Primary Phone [phone] How to be AddressedPaul Spoken Language PreferredEnglish [...] Withspouse Living Arrangementshouse Resource/Environmental Concernsnone Anticipated Transition [facility] Anticipated at Transitionnone Tobacco Use: Tobacco Useno Pre-op Checklist: Arrival [id number] NPOyes ID Band On Patientpatient ID (name), [...] 26-Sep-2021 07:11 by Maisha Meyer (ALICE) Normal [facility] CORONAVIRUS 2019, SCREEN ASY MPTOMATICon 09-25-2021 SARS-CoV-2 (COVID-19) RNA LU+probe Ql (Unsp spec) Not detected Normal Not Detected [facility] Comment on above: Result [...] patient management decisions. Fact sheet for providers: https://www.fda.gov/media/408783/download Fact sheet for patients: https://www.fda.gov/media/381204/download This test has received FDA Emergency Use Authorization (EUA) and has been verified by [facility] ([facility]). This test is only authorized for the duration of time that circumstances exist to justify the authorization of the emergency use of in vitro diagnostic tests for the detection of SARS-CoV-2 virus and/or diagnosis of COVID-19 infection under section 564(b)(1) of the Act, 21 U.S.C. 360bbb-3(b)(1), unless the authorization is terminated or revoked sooner. [facility] is certified under CLIA-88 as qualified to perform high complexity testing. Testing is performed in the [facility] laboratories located at [address] [place] [address]. Performed By: #### U ARFX #### [place] [address] Lab Specimen Source Nasal, Nasopharyngeal Normal [facility] Comment on above: Performed By: #### U ARFX #### [place] [address] Covid 19 Resultson 2 SARS-CoV-2 (COVID-19) RNA [...] by the [facility] to see if any of your [...] or Naproxen (Aleve) can also be used. Rfit-rwe-dibokdm cough and cold medicines can be used according to the instructions on the package. Some lksx-fwe-nfvztgx medicines also contain acetaminophen. Make sure you [...] water are not available, use alcohol-based hand field representative. Avoid touching your eyes, nose, and mouth [...] 24 mary (more content not included)... Normal [facility] COAGULATION SCREENon 022 aPTT Coag (Bld) [Time] 34 s Normal 26 - 39 [facility] Comment on above: Result Comment: THE APTT IS NO LONGER USED FOR MONITORING UNFRACTIONATED HEPARIN THERAPY. FOR MONITORING HEPARIN THERAPY, USE THE HEPARIN ASSAY. Performed By: #### U ARFX #### [facility] [address] [place] [address] PT Coag (PPP) [Time] 11.1 s Normal 9.8 - 13.4 [facility] Comment on above: Performed By: #### U ARFX #### [facility] [address] [place] [address] PT, INR 1.0 Normal 0.9 - 1.1 [facility] Comment on above: Performed By: #### U ARFX #### [facility] [address] [place] [address] Laboratory - Blood bankon ABO group Nom [...] SCREEN PATIENT: JAY CARR LOCATION: [facility] STOLL#: [id number] : 62 AGE: SEX: M ORDERED BY: SAL RICHARDSON SOURCE: ANTERIOR NARES COLLECTED: 09/19/21 10:10 ANTIBIOTICS AT BRAEDEN.: RECEIVED : 09/19/21 12:47 SITE: Nasal R E S U L T S STAPH/MRSA SCREEN FINAL 09/20/21 13:57 NO Staphylococcus aureus ISOLATED. Normal [facility] Comment on above: Performed By: #### S TAPH #### [facility] [address] [place] [address] TYPE + SCREENon 09-19-2021 ABO TYPE O Normal [facility] Comment on above: Performed By: #### T +S #### [facility] [address] [place] [address] RH TYPE Negative Normal [facility] Comment on above: Performed By: #### T +S #### [facility] [address] [place] [address] URINALYSISon 09-19-2021 Appearance (U) Canceled Normal [facility] Comment on above: Order Comment: TEST URINALYSIS WAS CANCELLED, 09/19/2021 12:02 DUPLICATE ORDER. Performed By: #### U A #### [facility] [address] [place] [address] ASCORBIC ACID Canceled Normal [facility] Comment on above: Order Comment: TEST URINALYSIS WAS CANCELLED, 09/19/2021 12:02 DUPLICATE ORDER. Result Comment: Conc entrations > = 20 mg/dL of ascorbic acid can be expected to cause strong interference in the reactions testing for glucose, nitrite and blood. It is recommended to discontinue Vitamin C administration and retest in 10 hours. Performed By: #### U A #### [facility] [address] [place] [address] Bilirubin Ql (U) Canceled Normal [facility] Comment on above: Order Comment: TEST URINALYSIS WAS CANCELLED, 09/19/2021 12:02 DUPLICATE ORDER. Performed By: #### U A #### [facility] [address] [place] [address] Color (U) Canceled Normal [facility] Comment on above: Order Comment: TEST URINALYSIS WAS CANCELLED, 09/19/2021 12:02 DUPLICATE ORDER. Performed By: #### U A #### [facility] [address] [place] [address] Glucose Ql (U) Canceled Normal [facility] Comment on above: Order Comment: TEST URINALYSIS WAS CANCELLED, 09/19/2021 12:02 DUPLICATE ORDER. Performed By: #### U A #### [facility] [address] [place] [address] Hemoglobin Ql (U) Canceled Normal [facility] Comment on above: Order Comment: TEST URINALYSIS WAS CANCELLED, 09/19/2021 12:02 DUPLICATE ORDER. Performed By: #### U A #### [facility] [address] [place] [address] Ketones Ql (U) Canceled Normal [facility] Comment on above: Order Comment: TEST URINALYSIS WAS CANCELLED, 09/19/2021 12:02 DUPLICATE ORDER. Performed By: #### U A #### [facility] [address] [place] [address] Leukocyte esterase Test strip Ql (U) Canceled Normal [facility] Comment on above: Order Comment: TEST URINALYSIS WAS CANCELLED, 09/19/2021 12:02 DUPLICATE ORDER. Performed By: #### U A #### [facility] [address] [place] [address] Nitrite Ql (U) Canceled Normal [facility] Comment on above: Order Comment: TEST URINALYSIS WAS CANCELLED, 09/19/2021 12:02 DUPLICATE ORDER. Performed By: #### U A #### [facility] [address] [place] [address] pH Canceled Normal [facility] Comment on above: Order Comment: TEST URINALYSIS WAS CANCELLED, 09/19/2021 12:02 DUPLICATE ORDER. Performed By: #### U A #### [facility] [address] [place] [address] Protein Ql (U) Canceled Normal [facility] Comment on above: Order Comment: TEST URINALYSIS WAS CANCELLED, 09/19/2021 12:02 DUPLICATE ORDER. Performed By: #### U A #### [facility] [address] [place] [address] Specific gravity (U) [Rel density] Canceled Normal [facility] Comment on above: Order Comment: TEST URINALYSIS WAS CANCELLED, 09/19/2021 12:02 DUPLICATE ORDER. Performed By: #### U A #### [facility] [address] [place] [address] UROBILINOGEN Canceled Normal [facility] Comment on above: Order Comment: TEST URINALYSIS WAS CANCELLED, 09/19/2021 12:02 DUPLICATE ORDER. Performed By: #### U A #### [facility] [address] [place] [address] URINALYSIS WITH CULTURE IF I NDICATEDon 09-19-2021 Appearance (U) CLEAR Normal CLEAR [facility] Comment on above: Performed By: #### U ARFX #### [facility] [address] [place] [address] Bilirubin Ql (U) Negative Normal NEGATIVE [facility] Comment on above: Performed By: #### U ARFX #### [facility] [address] [place] [address] Color (U) YELLOW Normal STRAW,YELL OW [facility] Comment on above: Performed By: #### U ARFX #### [facility] [address] [place] [address] Glucose Ql (U) Negative Normal NEGATIVE [facility] Comment on above: Performed By: #### U ARFX #### [facility] [address] [place] [address] Hemoglobin Ql (U) Negative Normal NEGATIVE [facility] Comment on above: Performed By: #### U ARFX #### [facility] [address] [place] [address] Ketones Ql (U) Negative Normal NEGATIVE [facility] Comment on above: Performed By: #### U ARFX #### [facility] [address] [place] [address] Leukocyte esterase Test strip Ql (U) Negative Normal NEGATIVE [facility] Comment on above: Performed By: #### U ARFX #### [facility] [address] [place] [address] Nitrite Ql (U) Negative Normal NEGATIVE [facility] Comment on above: Performed By: #### U ARFX #### [facility] [address] [place] [address] pH (U) 6.0 [pH] Normal 5.0 - 8.0 [facility] Comment on above: Performed By: #### U ARFX #### [facility] [address] [place] [address] Protein Ql (U) Negative Normal NEGATIVE [facility] Comment on above: Performed By: #### U ARFX #### [facility] [address] [place] [address] Specific gravity (U) [Rel density] 1.016 Normal 1.005 - 1.035 [facility] Comment on above: Performed By: #### U ARFX #### [facility] [address] [place] [address] Urobilinogen (U) [Mass/Vol] mg/dL Normal 0.0 - 1.9 [facility] Comment on above: Performed By: #### U ARFX #### [facility] [address] [place] [address] Color (U) YELLOW See Below [facility] [...] may no (more content not included)... Normal [facility] Visiton 08-03-2021 Follow-up visit Diagnoses/Problems Lumbar [...] Hold For - Scheduling,Retrospective Authorization Requested for: [id number] Lumbar back pain, Lumbar stenosis with neurogenic [...] disorder with myelopathy. COMPARISON: None. ACCESSION NUMBER(S): [id number] ORDERING CLINICIAN: SAL RICHARDSON FINDINGS: C-spine, two views Anterior spinal fusion C5-C7 with intact hardware. There is normal alignment. No fracture. No degenerative changes seen. IMPRESSION: Anterior spinal fusion C5-C7 without evidence hardware failure Electronically signed by: JULIA ARAIZA MD Normal [facility] CORONAVIRUS 2018, SCREEN ASY MPTOMATICon 07-05-2021 DATE OF SYMPTOM ONSET [[id number]]? Canceled Normal [facility] Comment on above: Order Comment: TEST CORONAVIRUS 2018, SCREEN ASYMPTOMATIC WAS CANCELLED, 07/05/2021 13:31 ptdid not have test done.. Performed By: #### U ARFX #### [facility] [address] [place] [address] SARS-CoV-2 (COVID-19) RNA LU+probe Ql (Unsp spec) Canceled Normal [facility] Comment on above: Order Comment: [...] patient management decisions. Fact sheet for providers: https://www.fda.gov/media/096470/download Fact sheet for patients: https://www.fda.gov/media/738677/download This test has received FDA Emergency Use Authorization (EUA) and has been verified by [facility] ([facility]). This test is only authorized for the duration of time that circumstances exist to justify the authorization of the emergency use of in vitro diagnostic tests for the detection of SARS-CoV-2 virus and/or diagnosis of COVID-19 infection under section 564(b)(1) of the Act, 21 U.S.C. 360bbb-3(b)(1), unless the authorization is terminated or revoked sooner. [facility] is certified under CLIA-88 as qualified to perform high complexity testing. Testing is performed in the [facility] laboratories located at [address] [place] [address]. Performed By: #### U ARFX #### [place] [address] ABO/RH GROUP TESTon 06-21-20 21 ABO TYPE O Normal [facility] Comment on above: Performed By: #### U ARFX #### [place] [address] RH TYPE Negative Normal [facility] Comment on above: Performed By: #### U ARFX #### [place] [address] Operative Reports - [facility] Operative Reports - [address] [place] [address] Patient Name: PAUL. Trena CARR : 1960 Date of Service: 06/21/2021 Patient Location: [place] [address] Patient Type: O Surgeon: Sal Richardson MD [...] anterior plate instrumentation. SURGEON: Sal Richardson MD SCIENTIFIC INFORMATICS LEADER(S): Ad Valdivia MD, chief resident. ANESTHESIA: ESTIMATED [...] current moratorium due to short staffing at [facility]. The patient agreed to have the [...] posi (more content not included)... Normal [facility] Order Reconciliationon 06-21 Order Reconciliation Page 1 [...] a day (more content not included)... Normal [facility] Order Reconciliation Page 1 Admission Reconciliation Document Reconciliation Type: Admission requested on behalf of Cheikh August (Resident) done by Cheikh August ( (Resident)) Admission - Reconciliation: 21-Jun-2021 06:37 by: Cheikh August ( (Resident)) Home MedicationsEnteredLast Dose TakenReconciled with current Order Reconciliation Comment/ Additional Information celecoxib 200 mg oral capsule 1 cap(s) oral 2 times a [id number] Reviewed and Held gabapentin 300 mg oral capsule 1 tab(s) oral once a [id number] Reviewed and Held hydroxychloroquine 200 mg oral tablet 1 tab(s) oral 2 times a [id number] Hydroxychloroquine Tablet (PLAQUENIL)DOSE = 200 mg Oral 2 Times a Day hydroxychloroquine 200 mg oral tablet continued as the inpatient order Hydroxychloroquine irbesartan 300 mg oral tablet 1 tab(s) oral once a [id number] Reviewed and Held NIFEdipine 30 mg oral [...] Pantoprazole Vitamin C 1 3 times a [id number]-Iri-7927 Reviewed and Held Vitamin D3 1 3 times a bdz08-Pfa-8020 Reviewed and Held Zinc 140 mg (as elemental zinc 50 mg) oral tablet 1 tab(s) oral once a day 21-Jun-2021 Reviewed and Held Normal [facility] Patient Profile - Preop v3on 06-21-2021 Patient Profile - Preop v3 Patient Profile - Preop: Initial Info: Patient DemographicsName: JAY CARR Date: 1960 Address: [address] [place] [address].[address] [place] [address] Primary Phone [phone] How to be AddressedPaul Spoken Language PreferredEnglish Source of Informationpatient Stated Reason for Admissionback surgery Primary Contact Name and NumberTreangeline Carr () [phone] Limitations on Visitors/Phone Callsnone Patient Belongings2 bags in pacu, glasses and phone with pt Medications [facility] to [facility]: Weight in kg98.9 kilogram(s) Weight in dvi054 pound(s) Weight Methodactual (measured) Scale Typestanding Height [...] Withspouse Living Arrangementshouse Resource/Environmental Concernsnone Anticipated Transition [facility] Anticipated at Transitionnone Tobacco Use: Tobacco Useno Pre-op Checklist: Arrival [id number] Arrival Time06:43 Procedure TypeC5-7 decompression and fusion [...] 21-Jun-2021 06:45 by Maisha Meyer (ALICE) Normal [facility] CORONAVIRUS 2019, SCREEN ASY MPTOMATICon 06-20-2021 SARS-CoV-2 (COVID-19) RNA LU+probe Ql (Unsp spec) Not detected Normal Not Detected [facility] Comment on above: Result [...] patient management decisions. Fact sheet for providers: https://www.fda.gov/media/545462/download Fact sheet for patients: https://www.fda.gov/media/188539/download This test has received FDA Emergency Use Authorization (EUA) and has been verified by [facility] ([facility]). This test is only authorized for the duration of time that circumstances exist to justify the authorization of the emergency use of in vitro diagnostic tests for the detection of SARS-CoV-2 virus and/or diagnosis of COVID-19 infection under section 564(b)(1) of the Act, 21 U.S.C. 360bbb-3(b)(1), unless the authorization is terminated or revoked sooner. [facility] is certified under CLIA-88 as qualified to perform high complexity testing. Testing is performed in the [facility] laboratories located at [address] [place] [address]. Performed By: #### U ARFX #### [address] [place] [address] Covid 19 Resultson 1 SARS-CoV-2 (COVID-19) RNA [...] by the [facility] to see if any of your [...] or Naproxen (Aleve) can also be used. Bdym-edr-euqvfld cough and cold medicines can be used according to the instructions on the package. Some ndev-sak-bhibvzl medicines also contain acetaminophen. Make sure you [...] water are not available, use alcohol-based hand field representative. Avoid touching your eyes, nose, and mouth [...] 24 mary (more content not included)... Normal [facility] CORONAVIRUS 2019, SCREEN ASY MPTOMATICon 06-19-2021 Lab Specimen Source Nasal, Nasopharyngeal Normal [facility] Comment on above: Performed By: #### U ARFX #### [facility] [address] [place] [address] BASIC METABOLIC PANELon 05-24 Anion gap [Moles/Vol] 14 mmol/L Normal 10 - 20 [facility] Comment on above: Performed By: #### B MP #### [facility] [address] [place] [address] Calcium [Mass/Vol] 9.0 mg/dL Normal 8.6 - 10.6 [facility] Comment on above: Performed By: #### B MP #### [facility] [address] [place] [address] Chloride [Moles/Vol] 105 mmol/L Normal 98 - 107 [facility] Comment on above: Performed By: #### B MP #### [facility] [address] [place] [address] Creatinine [Mass/Vol] 0.85 mg/dL Normal 0.50 - 1.30 [facility] Comment on above: Performed By: #### B MP #### [facility] [address] [place] [address] GFR- AM. >60 Normal >60 [facility] Comment on above: Result Comment: CALC ULATIONS OF ESTIMATED GFR ARE PERFORMED USING THE MDRD STUDY EQUATION FOR THE IDMS-TRACEABLE CREATININE METHODS. CLIN CHEM 2007;53:766-72 Performed By: #### B MP #### [facility] [address] [place] [address] GFR-NON AM. >60 Normal >60 [facility] Comment on above: Performed By: #### B MP #### [facility] [address] [place] [address] Glucose [Mass/Vol] 87 mg/dL Normal 74 - 99 [facility] Comment on above: Performed By: #### B MP #### [facility] [address] [place] [address] HCO3 (Bld) [Moles/Vol] 27 mmol/L Normal 21 - 32 [facility] Comment on above: Performed By: #### B MP #### [facility] [address] [place] [address] Potassium [Moles/Vol] 4.7 mmol/L Normal 3.5 - 5.3 [facility] Comment on above: Performed By: #### B MP #### [facility] [address] [place] [address] Sodium [Moles/Vol] 141 mmol/L Normal 136 - 145 [facility] Comment on above: Performed By: #### B MP #### [facility] [address] [place] [address] Urea nitrogen [Mass/Vol] 19 mg/dL Normal 6 - 23 [facility] Comment on above: Performed By: #### B MP #### [facility] [address] [place] [address] CBCon 06-02-2021 Erythrocyte distribution width (RBC) [Ratio] 12.4 % Normal 11.5 - 14.5 [facility] Comment on above: Performed By: #### U A #### [facility] [address] [place] [address] Hematocrit (Bld) [Volume fraction] 43.6 % Normal 41.0 - 52.0 [facility] Comment on above: Performed By: #### U A #### [facility] [address] [place] [address] Hemoglobin (Bld) [Mass/Vol] 14.8 g/dL Normal 13.5 - 17.5 [facility] Comment on above: Performed By: #### U A #### [facility] [address] [place] [address] MCHC (RBC) [Mass/Vol] 33.9 g/dL Normal 32.0 - 36.0 [facility] Comment on above: Performed By: #### U A #### [facility] [address] [place] [address] MCV (RBC) [Entitic vol] 93 fL Normal 80 - 100 [facility] Comment on above: Performed By: #### U A #### [facility] [address] [place] [address] NUCLEATED RBC 0.0 /100 WBC Normal 0.0-0.0 [facility] Comment on above: Performed By: #### U A #### [facility] [address] [place] [address] Platelets (Bld) [#/Vol] 295 10*3/uL Normal 150 - 450 [facility] Comment on above: Performed By: #### U A #### [facility] [address] [place] [address] RBC 4.69 x10E12/L Normal 4.50 - 5.90 [facility] Comment on above: Performed By: #### U A #### [facility] [address] [place] [address] WBC (Bld) [#/Vol] 8.5 10*3/uL Normal 4.4 - 11.3 [facility] Comment on above: Performed By: #### U A #### [facility] [address] [place] [address] COAGULATION SCREENon 021 aPTT Coag (Bld) [Time] 31 s Normal 26 - 39 [facility] Comment on above: Result Comment: Note new reference range as of 05/23/2021 at 10:00am. Performed By: #### U A #### [facility] [address] [place] [address] PT Coag (PPP) [Time] 12.2 s Normal 9.8 - 13.4 [facility] Comment on above: Result Comment: Note new reference range as of 05/23/2021 at 10:00am. Performed By: #### U A #### [facility] [address] [place] [address] PT, INR 1.1 Normal 0.9 - 1.1 [facility] Comment on above: Performed By: #### U A #### [facility] [address] [place] [address] Laboratory - Blood bankon ABO group Nom [...] SCREEN PATIENT: JAY CARR LOCATION: [facility] ST[facility]LL#: [id number] : 62 AGE: SEX: M ORDERED BY: SAL RICHARDSON SOURCE: ANTERIOR NARES COLLECTED: 06/02/21 10:59 ANTIBIOTICS AT BRAEDEN.: RECEIVED : 06/02/21 13:35 SITE: Nasal R E S U L T S STAPH/MRSA SCREEN FINAL 06/04/21 07:50 NO Staphylococcus aureus ISOLATED. Normal [facility] Comment on above: Performed By: #### S TAPH #### [facility] [address] [place] [address] TH CHEST 2 VIEW PA AND LATon 06-02-2021 TH CHEST 2 VIEW PA AND LAT Patient Name: JAY CARR STUDY: TH CHEST 2 VIEW PA AND LAT; 06/02/2021 11:10 am INDICATION: covid follow up . COMPARISON: None. ACCESSION NUMBER(S): [id number] ORDERING CLINICIAN: SAL RICHARDSON FINDINGS: PA and [...] as stated. This study was interpreted at [place], [place]. Electronically signed by: RANJIT GONZALES MD Normal [facility] TYPE + SCREENon 06-02-2021 ABO TYPE O Normal [facility] Comment on above: Performed By: #### U A #### [facility] [address] [place] [address] RH TYPE Negative Normal [facility] Comment on above: Performed By: #### U A #### [facility] [address] [place] [address] UA MICROSCOPICon 06-02-2021 CA OXALATE CRYSTAL 3+ /HPF Abnormal [facility] Comment on above: Performed By: #### U A #### [facility] [address] [place] [address] Mucus Ql (Urine sed) 4+ /LPF Normal [facility] Comment on above: Performed By: #### U A #### [facility] [address] [place] [address] RBC 11 /HPF Abnormal 0-5 [facility] Comment on above: Performed By: #### U A #### [facility] [address] [place] [address] SQUAMOUS EPITH. CELLS 1 /HPF Normal [facility] Comment on above: Performed By: #### U A #### [facility] [address] [place] [address] WBC 1 /HPF Normal 0-5 [facility] Comment on above: Performed By: #### U A #### [facility] [address] [place] [address] URINALYSIS WITH CULTURE IF I NDICATEDon 06-02-2021 Appearance (U) HAZY Normal CLEAR [facility] Comment on above: Performed By: #### U A #### [facility] [address] [place] [address] Bilirubin Ql (U) Negative Normal NEGATIVE [facility] Comment on above: Performed By: #### U A #### [facility] [address] [place] [address] Color (U) YELLOW Normal STRAW,YELL OW [facility] Comment on above: Performed By: #### U A #### [facility] [address] [place] [address] Glucose Ql (U) Negative Normal NEGATIVE [facility] Comment on above: Performed By: #### U A #### [facility] [address] [place] [address] Hemoglobin Ql (U) Negative Normal NEGATIVE [facility] Comment on above: Performed By: #### U A #### [facility] [address] [place] [address] Ketones Ql (U) Negative Normal NEGATIVE [facility] Comment on above: Performed By: #### U A #### [facility] [address] [place] [address] Leukocyte esterase Test strip Ql (U) Negative Normal NEGATIVE [facility] Comment on above: Performed By: #### U A #### [facility] [address] [place] [address] Nitrite Ql (U) Negative Normal NEGATIVE [facility] Comment on above: Performed By: #### U A #### [facility] [address] [place] [address] pH (U) 5.0 [pH] Normal 5.0 - 8.0 [facility] Comment on above: Performed By: #### U A #### [facility] [address] [place] [address] Protein Ql (U) 100 (2+) Abnormal NEGATIVE [facility] Comment on above: Performed By: #### U A #### [facility] [address] [place] [address] Specific gravity (U) [Rel density] 1.026 Normal 1.005 - 1.035 [facility] Comment on above: Performed By: #### U A #### [facility] [address] [place] [address] Urobilinogen (U) [Mass/Vol] mg/dL Normal 0.0 - 1.9 [facility] Comment on above: Performed By: #### U A #### [facility] [address] [place] [address] Color (U) YELLOW See Below [facility] [...] 05-23-2021 Lab Specimen Source Nasal, Nasopharyngeal Normal [facility] Comment on above: Order Comment: TEST CORONAVIRUS 2019, SCREEN ASYMPTOMATIC WAS CANCELLED, 07/05/2021 13:31 ptdid not have test done.. Performed By: #### U ARFX #### [facility] [address] [place] [address] Tobacco Screening.on 021 Fall risk assessment a) [...] COMPARISON: Lumbosacral spine radiographs 02/09/2021 ACCESSION NUMBER(S): [id number] ORDERING CLINICIAN: TONJA GERARDO TECHNIQUE: Sagittal and [...] degenerative disc height loss at L2-L3 with nchh-fk-trojakmj height loss at L1-L2. Conus: The lower [...] right, without spinal canal stenosis. There is jazz-eg-lzlzbzmy right and mild left neural foraminal narrowing. [...] interpreted at [facility], [place], [place]. Electronically signed by: STEVE YANG MD Normal [facility] No Panel Informationon 02-09 Normal [facility] Work Phone: Please click on the link to view the study images [facility] Work Phone: SPINE, LUMBOSACRAL; MIN 4 EWSon 02-09-2021 SPINE, LUMBOSACRAL; MIN 4 VIEWS Patient Name: JAY CARR STUDY: Lumbar Spine, 4 views. INDICATION: Low back pain COMPARISON: None. ACCESSION NUMBER(S): [id number] ORDERING CLINICIAN: TONJA GERARDO FINDINGS: Grade 1 [...] Electronically signed by: JOSE GOEL MD Normal [facility] MRI L-Ext Joint w/o Contrast LTon 01-12-2021 [...] formation. No other focal left hip abnormality. [place] thanks you for the opportunity to care for your patient. Workstation ID: [id number] FINAL REPORT Dictated By: Batsheva Brown MD 01/12/2021 08:43 Assigned Physician: Batsheva Brown MD Reviewed and Electronically Signed By: Batsheva Brown MD 01/12/2021 09:09 Transcribed by: CAROLINA 01/12/2021 08:43 Technologist: AMANDA Normal [facility] Basic metabolic 2000 panelon 11-10-2020 Calcium [Mass/Vol] 9.5 mg/dL Normal 8.5-10.6 [facility] Chloride [Moles/Vol] 104 mmol/L Normal 98-107 [facility] t [facility] CO2 [Moles/Vol] 28 mmol/L Normal 21-32 [facility] Creatinine [Mass/Vol] 0.85 mg/dL Normal 0.55-1.02 Lianna nt [facility] Glucose [Mass/Vol] 112 mg/dL High 70-99 [facility] Potassium [Moles/Vol] 4.2 mmol/L Normal 3.5-5.1 Lianna [facility] Sodium [Moles/Vol] 142 mmol/L Normal 136-145 [facility] Urea nitrogen (BldV) [Mass/Vol] 20 mg/dL High 7.0-18.0 [facility] Urea nitrogen/Creatinine [Mass ratio] 24 mg/mg Normal [facility] CBC W Auto Differential pane l (Bld)on 11-10-2020 Basophils (Bld) [#/Vol] 0.0 thou/mcL Normal 0.0-0.2 [facility] Basophils/100 WBC (Bld) 0.5 % Normal 0-3 [facility] Differential cell count method Nom (Bld) AUTOMATED DIFFERENTIAL Normal [facility] [place] [facility] Eosinophils (Bld) [#/Vol] 0.1 thou/mcL Normal 0.0-0.4 [facility] Eosinophils/100 WBC (Bld) 0.9 % Normal 0-7 [facility] Erythrocyte distribution width (RBC) [Entitic vol] 13.0 % Normal 11.7-15.0 [facility] Hematocrit (Bld) [Volume fraction] 43.4 % Normal 34.0-50.0 [facility] Hemoglobin (Bld) [Mass/Vol] 15.0 g/dL Normal 11.5-17.0 [facility] Lymphocytes (Bld) [#/Vol] 1.0 thou/mcL Normal 0.7-4.5 [facility] Lymphocytes/100 WBC (Bld) 15.6 % Normal 14-46 [facility] MCH (RBC) [Entitic mass] 32.5 Picograms Normal 27.0-34.0 [facility] MCHC (RBC) [Mass/Vol] 34.6 g/dL Normal 32.0-36.0 Lianna [facility] MCV (RBC) [Entitic vol] 94.0 fL Normal 80-98 [facility] Monocytes (Bld) [#/Vol] 0.6 thou/mcL Normal 0.1-1.0 [facility] Monocytes/100 WBC (Bld) 9.8 % Normal 4-13 [facility] Neutrophils (Bld) [#/Vol] 4.7 thou/mcL Normal 1.5-7.8 [facility] Neutrophils/100 WBC (Bld) 73.2 % Normal 40-74 [facility] Platelet mean volume (Bld) [Entitic vol] 9.4 fL Normal 7.5-11.2 [facility] Platelets (Bld) [#/Vol] 220 thou/mcL Normal 140-415 [facility] RBC (Bld) [#/Vol] 4.62 x(10)6/mcL Normal 3.80-5.60 [facility] [place] [facility] WBC (Bld) [#/Vol] 6.5 thou/mcL Normal 4.0-10.5 [facility] PT Coag (PPP) [Time]on 11-10 INR Coag (Bld) [Relative time] 0.9 {INR} Normal [facility] Comment on above: Result Comment: ENRRIQUE GRIMES THE INDUCTION PHASE OF ORAL ANTICOAGULATION, THE INR MAY NOT REFLECT THE ANTICOAGULANT STATUS OF THE PATIENT. THERAPEUTIC RANGES FOR INR'S ARE: MOST CLINICAL SITUATIONS: INR 2.0-3.0 MECHANICAL PROSTHETIC VALVES: INR 2.5-3.5 CRITICAL: INR 5.0 Prothrombin Timeon PT Coag (PPP) [Time] 12.6 s Normal 11.9-14.6 [facility] aPTT Coag (Bld) [Time]on aPTT Coag (PPP) [Time] 38.6 s High 23.2-34.6 [facility] [place] [facility] Vital Signs Date Time Vital Sign Value Performing Clinician Facility 02-02-2025 10:52-0400 Body height 175.3 cm Theresa Lange NP Work Phone: [facility] 02-02-2025 10:52-0400 Body mass index (BMI) [Ratio] 33.23 kg/m2 Theresa Paystrup [employer] Work Phone: [facility] 02-02-2025 10:52-0400 Body weight 102.06 kg Theresa Paystrup [employer] Work Phone: [facility] 02-02-2025 10:52-0400 Diastolic blood pressure 71 mm[Hg] Theresa Paystrup [employer] Work Phone: [facility] 02-02-2025 10:52-0400 Systolic blood pressure 134 mm[Hg] Theresa Paystrup [employer] Work Phone: [facility] 04-13-2024 09:42-0400 Blood Pressure Location [employer] [facility] 04-13-2024 09:42-0400 Body temperature 98.6 [degF] [employer] [facility] 04-13-2024 09:42-0400 Diastolic blood pressure 88 mm[Hg] Shun COOK [facility] 04-13-2024 09:42-0400 Heart rate 78 /min Shun COOK [facility] 04-13-2024 09:42-0400 Respiratory rate 16 /min Shun COOK [facility] 04-13-2024 09:42-0400 Systolic blood pressure 137 mm[Hg] Shun COOK [facility] 04-08-2023 10:38-0400 Blood Pressure Location [employer] [facility] 04-08-2023 10:38-0400 Diastolic blood pressure 82 mm[Hg] Shun COOK [facility] 04-08-2023 10:38-0400 Heart rate 71 /min Shun MACHADO [facility] 04-08-2023 10:38-0400 Systolic blood pressure 154 mm[Hg] Shun COOK [facility] 10-16-2022 14:18-0400 Blood Pressure Location Shun MACHADO [facility] 10-16-2022 14:18-0400 Diastolic blood pressure 94 mm[Hg] Shun COOK [facility] 10-16-2022 14:18-0400 Heart rate 72 /min Shun MACHADO [facility] 10-16-2022 14:18-0400 Systolic blood pressure 186 mm[Hg] Shun MACHADO [facility] 10-02-2022 13:36-0400 Blood Pressure Location Arely YESSYL [facility] [place] 10-02-2022 13:36-0400 Diastolic blood pressure 80 mm[Hg] Areyl NILL [facility] [place] 10-02-2022 13:36-0400 Heart rate 76 /min Arely NILL [facility] [place] 10-02-2022 13:36-0400 Respiratory rate 16 /min Arely NILL [facility] [place] 10-02-2022 13:36-0400 Systolic blood pressure 144 mm[Hg] Arely NILL [facility] [place] 02-15-2022 14:19-0400 Diastolic blood pressure 95 mm[Hg] MD Dania Armstrong Work Phone: [facility] 02-15-2022 14:19-0400 Heart rate 66 /min MD Dania Armstrong Work Phone: [facility] 02-15-2022 14:19-0400 Respiratory rate 16 /min MD Dania Armstrong Work Phone: [facility] 02-15-2022 14:19-0400 SaO2% (BldA) [Mass fraction] 99 % MD Dania Armstrong Work Phone: [facility] 02-15-2022 14:19-0400 Systolic blood pressure 170 mm[Hg] MD Dania Armstrong Work Phone: [facility] 02-15-2022 13:04-0400 Inhaled oxygen flow rate 6 L/min MD Dania Armstrong Work Phone: [facility] 02-15-2022 12:00-0400 Body weight 42 mg MD Dania Armstrong Work Phone: [facility] 02-15-2022 10:03-0400 Body height 175.26 cm MD Dania Armstrong Work Phone: [facility] 02-15-2022 10:03-0400 Body mass index (BMI) [Ratio] 31.3 kg/m2 MD Dania Armstrong Work Phone: [facility] 02-15-2022 10:03-0400 Body weight 96.16 kg MD Dania Armstrong Work Phone: [facility] 02-15-2022 07:29-0400 Body temperature 98.8 [degF] MD Dania Armstrong Work Phone: [facility] 01-24-2022 13:59-0400 Blood Pressure Location Arely LOGAN [facility] [place] 01-24-2022 13:59-0400 Diastolic blood pressure 74 mm[Hg] Arely LOGAN [facility] [place] 01-24-2022 13:59-0400 Heart rate 72 /min Arely KRISHNAMURTHYL [facility] [place] 01-24-2022 13:59-0400 Respiratory rate 16 /min Arely KRISHNAMURTHYL [facility] [place] 01-24-2022 13:59-0400 Systolic blood pressure 140 mm[Hg] Arely NILL [facility] [place] 01-19-2022 16:45-0400 Diastolic blood pressure 84 mm[Hg] MD Dania Armstrong Work Phone: [facility] 01-19-2022 16:45-0400 Heart rate 70 /min MD Dania Armstrong Work Phone: [facility] 01-19-2022 16:45-0400 Respiratory rate 16 /min MD Dania Armstrong Work Phone: [facility] 01-19-2022 16:45-0400 SaO2% (BldA) [Mass fraction] 98 % MD Dania Armstrong Work Phone: [facility] 01-19-2022 16:45-0400 Systolic blood pressure 148 mm[Hg] MD Dania Armstrong Work Phone: [facility] 01-19-2022 15:04-0400 Body height 177.8 cm MD Dania Armstrong Work Phone: [facility] 01-19-2022 15:04-0400 Body mass index (BMI) [Ratio] 31.2 kg/m2 MD Dania Armstrong Work Phone: [facility] 01-19-2022 15:04-0400 Body weight 98.8 kg MD Dania Armstrong Work Phone: [facility] 01-19-2022 14:24-0400 Body temperature 98.6 [degF] MD Dania Armstrong Work Phone: [facility] 09-27-2021 09:44-0400 Body temperature 97.88 [degF] Dania Hoy Other Phone: [facility] 09-27-2021 09:44-0400 Diastolic blood pressure 74 mm[Hg] Dania Hoy Other Phone: [facility] 09-27-2021 09:44-0400 Heart rate 89 /min Dania Hoy Other Phone: [facility] 09-27-2021 09:44-0400 Respiratory rate 18 /min Dania Hoy Other Phone: [facility] 09-27-2021 09:44-0400 SaO2% (BldA) [Mass fraction] 94 % Dania Hoy Other Phone: [facility] 09-27-2021 09:44-0400 Systolic blood pressure 149 mm[Hg] Dania Hoy Other Phone: [facility] 03-16-2021 08:34-0400 Body weight 101.86 kg No PCP None [facility] Work Phone: 03-16-2021 08:34-0400 Diastolic blood pressure 90 mm[Hg] No PCP None [facility] Work Phone: 03-16-2021 08:34-0400 Heart rate 80 /min No PCP None [facility] Work Phone: 03-16-2021 08:34-0400 Respiratory rate 17 /min No PCP None [facility] Work Phone: 03-16-2021 08:34-0400 Systolic blood pressure 166 mm[Hg] No PCP None [facility] Work Phone: Encounters Encounter Date Encounter Type Care Provider Facility Start: 04-19-2025 ambulatory Shun MACHADO Facility :[facility] Start: 03-01-2025 End: 03-01-2025 Patient encounter procedure Sabrina Manriquez [employer] [address] Work Phone: Start: 03-01-2025 End: 03-01-2025 ambulatory Dania Armstrong MD Work Phone: [facility] Work Phone: Start: 02-02-2025 End: 02-02-2025 Bamboo flowsheet Theresa Paystrup [employer] Work Phone: [facility] Start: 02-02-2025 End: 02-02-2025 Bamboo flowsheet Theresa Paystrup [employer] Work Phone: [facility] Start: 02-02-2025 End: 02-02-2025 Office outpatient new 45 minutes Theresa Paystrup [employer] Work Phone: [facility] Comment on above: Arthritis of right s houlder (Primary Dx); Pre-op exam; Raynaud's disease without gangrene; Age related osteoporosis, unspecified pathological fracture presence ; Primary hypertension ; Lupus erythematosus, unspecified form Start: 02-02-2025 End: 02-02-2025 Preprocedural examination done Theresa Paystrup [employer] Work Phone: [facility] Work Phone: Start: 02-02-2025 End: 02-02-2025 ambulatory THERESA PAYSTRUP Not Available Start: 01-05-2025 End: 01-05-2025 Clinisync Result Encounter Brennen Sam MD Work Phone: [facility] Unsolicited Start: 01-05-2025 End: 01-05-2025 Clinisync Result Encounter Brennen Sam MD Work Phone: [facility] Unsolicited Start: 10-13-2024 End: 10-13-2024 Patient encounter procedure Dania Armstrong MD Work Phone: [facility] [address] Work Phone: Start: 10-13-2024 End: 10-13-2024 ambulatory Dania Armstrong MD Work Phone: [facility] Work Phone: Start: 07-14-2024 End: 07-14-2024 Encounter identifier Fidel Narayan Work Phone: [facility] [place] Start: 07-14-2024 ambulatory Fidel Narayan [facility] Start: 04-13-2024 End: 04-13-2024 ambulatory Shun MACHADO Facility:[facility] Start: 04-13-2024 End: 04-13-2024 Patient encounter procedure Shun MACHADO [facility] Start: 03-04-2024 End: 03-04-2024 ambulatory MD Dania Armstrong Work Phone: [facility] Work Phone: Start: 03-04-2024 End: 03-04-2024 Patient encounter procedure MD Dania Armstrong Work Phone: [facility] [address] Work Phone: Start: 12-27-2023 Non-patient / Non-visit MD Brittani Armstrong Work Phone: [facility] Work Phone: Start: 11-19-2023 End: 11-19-2023 ambulatory MD Dania Armstrong Work Phone: [facility] Work Phone: Start: 11-19-2023 End: 11-19-2023 Patient encounter procedure MD Dania Armstrong Work Phone: [facility] [address] Work Phone: Start: 09-19-2023 End: 09-19-2023 Office outpatient visit 15 minutes Fidel Narayan Work Phone: [facility] Start: 07-18-2023 End: 07-18-2023 ambulatory MD Dania Armstrong Work Phone: [facility] Work Phone: Start: 07-18-2023 End: 07-18-2023 Patient encounter procedure MD Dania Armstrong Work Phone: [facility] [address] Work Phone: Start: 07-05-2023 End: 07-05-2023 Office outpatient new 30 minutes Fidel M Sylvain Work Phone: [facility] Start: 04-08-2023 End: 04-08-2023 Patient encounter procedure Shun MACHADO [facility] [place] Start: 03-12-2023 End: 03-12-2023 ambulatory ANTWAN SORIANO Facility:[facility] Start: 02-19-2023 End: 02-19-2023 ambulatory MD Dania Armstrong Work Phone: [facility] Work Phone: Start: 02-19-2023 End: 02-19-2023 Patient encounter procedure MD Dania Armstrong Work Phone: [facility] [address] Work Phone: Start: 10-16-2022 End: 10-16-2022 Patient encounter procedure Shun MACHADO [facility] [place] Start: 10-15-2022 End: 10-15-2022 ambulatory MD Dania Armstrong Work Phone: [facility] Work Phone: Start: 10-15-2022 End: 10-15-2022 Patient encounter procedure MD Dania Armstrong Work Phone: [facility] [address] Work Phone: Start: 10-02-2022 End: 10-02-2022 Patient encounter procedure Arely LOGAN [facility] Start: 09-11-2022 End: 09-11-[address] DANIA ARMSTRONG . Facility:[facility] Start: 09-05-2022 ambulatory JENI SAEED Faci lity:[facility] Start: 08-31-2022 End: 09-01-[address] ARELY LOGAN . Facility:[facility] Start: 08-27-2022 Chart Update Dania Armstrong Work Phone: [facility] Work Phone: Start: 08-16-2022 End: 08-17-2022 ambulatory WADE NELSON Facility:[facility] Start: 07-19-2022 End: 07-20-2022 ambulatory WADE NELSON Facility:[facility] Start: 07-06-2022 End: 07-07-[address] DANIA ARMSTRONG . Facility:[facility] Start: 06-19-2022 Encounter for preprocedural laboratory examination JENI SAEED [facility] Start: 06-07-2022 End: 06-08-[address] DANIA ARMSTRONG . Facility:[facility] Start: 06-04-2022 End: 06-05-[address] DANIA ARMSTRONG . Facility:[facility] Start: 06-04-2022 End: 06-05-2022 Encounter for preprocedural laboratory examination DR DANIA ARMSTRONG . Facility:[facility] Start: 05-31-2022 Encounter for preprocedural cardiovascular examination JENI SAEED [facility] Start: 05-25-2022 End: 05-26-2022 ambulatory JENI SAEED Facility:[facility] Start: 05-25-2022 End: 05-26-2022 Encounter for preprocedural cardiovascular examination JENI SAEED Facility:[facility] Start: 05-23-[address] DANIA ARMSTRONG . Facili ty:[facility] Start: 05-23-2022 End: 05-23-2022 ambulatory MD Dania Armstrong Work Phone: [facility] Work Phone: Start: 05-23-2022 End: 05-23-2022 Patient encounter procedure MD Dania Armstrong Work Phone: [facility] [address] Start: 05-02-2022 ambulatory Mr. Kenton Lawson Fa cility:[facility] Start: 05-02-2022 Office outpatient vi sit 25 minutes Dania Armstrong Work Phone: BF-Rpoimfisqjel-Yhcdtpa 5FL DO Work Phone: Start: 03-30-2022 Encounter for genera l adult medical examination without abnormal findings DR DANIA ARMSTRONG . [facility] Start: 03-28-2022 End: 03-29-[address] DANIA ARMSTRONG . Facility:[facility] Start: 03-28-2022 End: 03-29-2022 Encounter for general adult medical examination without abnormal findings DR DANIA ARMSTRONG . Facility:[facility] Start: 02-15-2022 End: 02-15-2022 Admission to same day surgery center MD Dania Armstrong Work Phone: [facility] [place] Start: 02-14-2022 End: 02-15-2022 ambulatory JENI Albrecht EDISONNOEMI Facility:[facility] Start: 02-13-2022 End: 02-13-2022 Patient encounter procedure MD Dania Armstrong Work Phone: [facility]Pre[facility] Start: 01-30-2022 End: 01-30-2022 Patient encounter procedure Shun MACHADO [facility] Start: 01-29-2022 End: 01-30-[address] DANIA ARMSTRONG . Facility:[facility] Start: 01-29-2022 ambulatory Dania Armstrong Fac ility:[facility] Start: 01-29-2022 Office outpatient vi sit 15 minutes Dania Armstrong Work Phone: GL-Imcmuqiuthsm-Rsftvxh 5FL DO Work Phone: Start: 01-29-2022 ambulatory Mr. Kenton Lawson Fa cility:[id number] Start: 01-24-2022 End: 01-24-2022 Patient encounter procedure Arely LOGAN General Surgery [facility] Start: 01-19-2022 End: 01-19-2022 Admission to same day surgery center MD Dania Armstrong Work Phone: [facility] [place] Start: 01-17-2022 End: 01-17-2022 Patient encounter procedure MD Dania Armstrong Work Phone: [facility]-Pre-Surgical [...] 11-09-2021 Chart Update Dania Armstrong Work Phone: EW-Rbnkukcploxw-Sctrcm 210 Work Phone: Start: 11-08-2021 Postop follow up vis it related to original px Dania Armstrong Work Phone: YX-Lltubngykppo-Fntcprq 5FL DO Work Phone: Start: 11-08-2021 POV, Provider: Kenton Lawson, Status: Pen, Time: 11:00 AM Dania Armstrong Work Phone: BX-Vnmjsigmwitw-Ejwxur 210 Work Phone: Start: 11-08-2021 ambulatory Dania Armstrong Fac ility:[facility] Start: 11-07-2021 AUDIT Dania Armstrong Work Phone: KL-Labzofuuhrkl-Dgkwmz 210 Work Phone: Start: 09-26-2021 End: 09-27-2021 Evaluation and management of inpatient Sal Richardson PERRI Umana [id number] Start: 09-19-2021 AUDIT Dania Armstrong Work Phone: AQ-Jstmufgirkzylj-Ipa for Perioperative Med Work Phone: Start: 09-19-2021 ambulatory Dania Rivera ility:[facility] Start: 09-19-2021 Encounter for blood typing Dr. SAL RICHARDSON [facility] Start: 09-19-2021 Encounter for preprocedural laboratory examination Dr. SAL RICHARDSON [facility] Start: 08-23-2021 Office outpatient vi sit 40 minutes Dania Armstrong Work Phone: BR-Jhlxaznqhnyr-Kdyrxpm ng-L[facility] Work Phone: Start: 08-23-2021 ambulatory Dania Rivera ility:[facility] Start: 08-03-2021 Office outpatient vi sit 25 minutes Dania Armstrong Work Phone: RY-Yalsrqjxfzto-Qtxhyy 210 Work Phone: Start: 08-03-2021 ambulatory Referral Self Facility: [id number] Start: 06-21-2021 End: 06-21-2021 ambulatory Dania Armstrong Facility:[facility] Start: 06-02-2021 AUDIT No PCP None [facility]-Anesthe siology-Ctr for Perioperative Med Work Phone: Start: 06-02-[address] SAL RICHARDSON Facility:[facility] Start: 06-02-[address] SAL RICHARDSON Facility:[facility] Start: 06-02-2021 Encounter for other preprocedural examination Dr. SAL RICHARDSON [facility] Start: 06-02-2021 Encounter for preprocedural cardiovascular examination Dr. SAL RICHARDSON [facility] Start: 05-03-2021 Office outpatient vi sit 40 minutes No PCP None KZ-Jqkmziirphry-Tztfzeu ng-[facility] Work Phone: Start: 03-16-2021 NPV, Provider: Nazario Holloway, Status: Pen, Time: 8:30 AM No PCP None [facility] Work Phone: Start: 03-16-2021 Office outpatient ne w 30 minutes No PCP None [facility]-Jose Work Phone: Start: 03-16-2021 Patient encounter procedure No PCP None [facility] Work Phone: Start: 03-13-2021 Office consultation new/estab patient 80 min No PCP None [facility] Work Phone: Start: 03-10-2021 Chart Update No PCP None [facility]-Orthopa edics-[facility] 210 Work Phone: Start: 03-06-2021 Telephone encounter No PCP None [facility] Work Phone: Start: 02-12-2021 Chart Update No PCP None [facility]-Orthopa edics-[facility] 210 Work Phone: Start: 02-09-2021 Office outpatient ne w 45 minutes No PCP None JZ-Gxmkdwzsiyrv-Aalkdx 210 Work Phone: Start: 02-08-2021 AUDIT No [...] on above: Performed By: #### P [facility] #### [facility] [address] [place] [address] Dr. Carolyn King Start: 02-15-2022 Cystoscopy MD [...] Performed By: #### T +S #### [facility] [address] [place] [id number] Start: 06-02-[address] ASIA RICHARDSON Comment on above: Performed By: #### U A #### [facility] [address] [place] [address] Start: 09-05-2016 Colonoscopy Brennen schofield MD Work [...] Hospital Start: 03-01-2025 Hemolytic complement CH50 level [facility] Start: 02-22-2025 Influenza vaccination Influenza Vacc ine (#1) [facility] Start: 02-02-2025 End: 02-02-2025 Patient encounter procedure 02/02/2025 11:30 AM EDT Consult [facility] [address] [place] [address] Theresa Lange, JANETTE [address] [facility] [place] [address] Arthritis of right shoulder (Primary Dx); Pre-op exam; Raynaud's disease without gangrene; Age related osteoporosis, unspecified pathological fracture presence ; Primary hypertension [facility] Comment on above: Arthritis of right s [...] 01/29/2026 Start: 10-13-2024 Hemolytic complement CH50 level [facility] Start: 03-04-2024 Hemolytic complement CH50 level [facility] Start: 11-19-2023 Hemolytic complement CH50 level [facility] Start: 07-18-2023 Hemolytic complement CH50 level [facility] Start: 02-19-2023 Hemolytic complement CH50 level [facility] Start: 10-15-2022 Hemolytic complement CH50 level [facility] Start: 09-26-2022 FUV, Provider: Kenton Lawson, Status: Pen, Time: 9:30 AM FUV, Provider: Kenton Lawson, Status: Pen, Time: 9:30 AM AB-Ozzzwetjugsq-Vtplmp l 5FL DO Work Phone: Start: 05-23-2022 Hemolytic complement CH50 level [facility] Start: 05-02-2022 FUV, Provider: Kenton Lawson, Status: Pen, Time: 9:00 AM FUV, Provider: Kenton Lawson, Status: Pen, Time: 9:00 AM UT-Bljklgtzzwjc-Buzmuo l 5FL DO Work Phone: Start: 02-15-2022 End: 02-15-2022 [facility] Work Phone: Start: 02-15-2022 Cystoscopy OR Cysto/Retro/Stent/Stone /Holmium Laser (Right) [facility] Start: 02-15-2022 Diagnostic radiograp hy of abdomen XR KUB [facility] Start: 02-15-2022 End: 02-15-2022 Admission to same day surgery center Departed [facility] [place] Start: 02-13-2022 End: 02-13-2022 Patient encounter procedure Departed Clinical [facility] Yxp-Dkv-Iqfzbbbe Testing Start: 01-19-2022 End: 01-19-2022 [facility] Work Phone: Start: 01-15-2022 FUV, Provider: Kenton Lawson, Status: Pen, Time: 10:00 AM FUV, Provider: Kenton Lawson, Status: Pablo, Time: 10:00 AM VN-Hjhdwlgjlnlu-Hicobd l 5FL DO Work Phone: Start: 11-08-2021 Patient encounter procedure [facility] Orthoped[facility] Start: 09-27-2021 End: 09-28-2022 Sodium Chloride 0.9% Injectable Flush Peripheral Line ; via Peripheral LineVolume = 10 mL IntraVenous Flush Every 8 Hours and as Needed Start: 27-Sep-2021 End: 27-Sep-2022 Ordered: 27-Sep-2021 Timothy Steinberg [facility] Start: 09-27-2021 End: 09-28-2022 oxyCODONE Immediate Release 10 mg Oral Tablet Every 4 Hours ; Tablet (OXYIR, ROXICODONE)DOSE = 10 mg Oral Every 4 Hours, PRN Pain - Severe (7-10) Start: 27-Sep-2021 End: 27-Sep-2022 Ordered: 27-Sep-2021 Timothy Steinberg [facility] Start: 09-26-2021 End: 09-27-2022 [facility] Comment on above: HOLD CROWN POUNCER Infusion an d notify H.O. immediately Start: 09-26-2021 [facility], Provider: Sal Richardson, Status: Pablo, Time: 7:30 AM [facility], Provider: Sal Richardson, Status: Pablo, Time: 7:30 AM ZM-Nqdrspgwgrljbd-Obf for Perioperative Med Work Phone: Start: 08-30-2021 FUV, Provider: Sal Richardson, Status: Pablo, Time: 11:15 AM [facility]UV, Provider: Sal Richardson, Status: Pablo, Time: 11:15 AM WW-Vsubxqrxuyph-Xpsrfc 210 Work Phone: Start: 08-30-2021 FUV, Provider: Sal Richardson, Status: Pablo, Time: 11:00 AM [facility]UV, Provider: Sal Richardson, Status: Pablo, Time: 11:00 AM PD-Zgixmcgmgzup-Tpfadu 210 Work Phone: Start: 06-09-2021 [facility], Provider: Sal Richardson, Status: Pen, Time: 7:30 AM [facility], Provider: Sal Richardson, Status: Pen, Time: 7:30 AM OT-Mjxkwpuyvlqjnx-Ttr for Perioperative Med Work Phone: Start: 03-22-2021 [facility], Provider: Nazario Holloway, Status: Pen, Time: 9:40 AM [facility], Provider: Nazario Holloway, Status: Pen, Time: 9:40 AM [facility]-Jose Work Phone: Start: 03-13-2021 [facility]UV, Provider: Sal Richardson, Status: Pen, Time: 2:15 PM [facility]UV, Provider: Sal Richardson, Status: Pen, Time: 2:15 PM MA-Feyqizutivfj-Ewxtmz 210 Work Phone: Start: 1961 Skin Cancer Screening Skin Cancer Sc reening [facility] Start: 1960 Medicare Annual Wellness (AWV) Medicare Annual Wellness (AWV) [facility] Start: 1960 Screening for malign ant neoplasm of colon [facility] Complement C3 [Mass/volume] in Serum or Plasma [facility] Work Phone: Complement C3 [Mass/volume] in Serum or Plasma [facility] Complement C3 [Mass/volume] in Serum or Plasma [facility] Complement C3 [Mass/volume] in Serum or Plasma [facility] Complement C3 [Mass/volume] in Serum or Plasma [facility] Complement C3 [Mass/volume] in Serum or Plasma [facility] Complement C4 [Mass/volume] in Serum or Plasma [facility] Work Phone: Complement C4 [Mass/volume] in Serum or Plasma [facility] Complement C4 [Mass/volume] in Serum or Plasma [facility] Complement C4 [Mass/volume] in Serum or Plasma [facility] Complement C4 [Mass/volume] in Serum or Plasma [facility] Complement C4 [Mass/volume] in Serum or Plasma [facility] ECG 12 lead ECG 12 lead ECG Routine Pre-op exam 02/02/2025 11:01 AM EDT [facility] Hemolytic complement CH50 level [facility] Work Phone: Patient referral [facility] Work Phone: Immunizations Immunization Date Immunization Notes Care Provider Fa cili 04-12-2023 Influenza, injectabl e, Madin Charissa Canine Kidney, preservative free, quadrivalent Theresa Paystrup [employer]ER FARMER Work Phone: [facility] 04-12-2023 influenza virus vaccine, unspecified formulation Theresa Paystrup [employer]ER Work Phone: [facility] 03-27-2022 influenza virus vaccine, unspecified formulation Arely LOGAN [facility] [place] 03-27-2022 Influenza, injectabl e, Madin [place] Canine Kidney, preservative free, quadrivalent Theresa Paystrup GINGER FARMER Work Phone: [facility] 11-21-2021 SARS-CoV-2 mRNA (ewsqeqzyszp-jjpa-hmwz ose) vaccine Arely DOREEN [facility] [place] 09-22-2021 SARS-CoV-2 (COVID-19 ) mRNA BNT-162b2 vax Arely DOREEN [facility] [place] 06-26-2021 Pfizer-BioNTech COVID-19 Vacc 30 MCG/0.3ML Intramuscular Suspension Dania Armstrong Work Phone: [facility] 05-01-2021 influenza virus vaccine, unspecified formulation Shun MACHADO [facility] 05-01-2021 Influenza, injectabl e, Madin Charissa Canine Kidney, preservative free, quadrivalent Dania Armstrong Work Phone: NB-Xuuabkqihtdi-Mmo man 210 Work Phone: 10-06-2020 Pfizer-BioNTech COVID-19 Vacc 30 MCG/0.3ML Intramuscular Suspension No PCP None [facility] 09-13-2020 Pfizer-BioNTech COVID-19 Vacc 30 MCG/0.3ML Intramuscular Suspension No PCP None [facility] 06-24-2020 SARS-CoV-2 (COVID-19 ) mRNA BNT-162b2 vax Arely LOGAN [facility] [place] 05-04-2020 influenza virus vaccine, unspecified formulation Shun MACHADO [facility] 05-04-2020 Influenza, injectabl e, Madin Charissa Canine Kidney, preservative free, quadrivalent No PCP None LT-Ruadgcsvykko-Mia man 210 Work Phone: 05-04-2020 pneumococcal conjuga te vaccine, 13 valent No PCP None [facility] 04-06-2020 influenza virus vaccine, unspecified formulation Shun MACHADO [facility] 04-06-2020 influenza, seasonal, injectable No PCP None WE-Edcgwwbpojku-Orp man 210 Work Phone: 10-25-2011 hepatitis A vaccine, adult dosage No PCP None [facility] 10-25-2011 hepatitis B vaccine, pediatric or pediatric/adolescent dosage No PCP None [facility] 03-30-2011 hepatitis A vaccine, adult dosage No PCP None [facility] 03-30-2011 hepatitis B vaccine, pediatric or pediatric/adolescent dosage No PCP None [facility] 02-15-2011 hepatitis B vaccine, pediatric or pediatric/adolescent dosage No PCP None [facility] 01-20-1998 hepatitis B vaccine, adult dosage No PCP None [facility] 02-24-1997 hepatitis B vaccine, adult dosage No PCP None [facility] 11-11-1996 hepatitis B vaccine, adult dosage No PCP None [facility] 11-02-1996 TD(adult) unspecifie d formulation; Translations: [Td(adult) unspecified formulation] No PCP None [facility] NEGATED: Highlighted row has not occurred!04-15-2019 influenza virus vaccine, unspecified formulation Arely LOGAN [facility] [place] Payers Date Payer Category Payer Self-pay [id number] 2022 Medicaid [employer] MEDICARE A DVANTAGE [id number] 2022 Medicare [id number] 1960 Unknown [id number] 2.840.1.555615.3.579.2.356 1961 Unknown [id number] 2.16840.1.222930.3.579.2.356 1961 Unknown [id number] 2.16840.1.747886.3.579.2.356 1961 Unknown [id number] 2.16840.1.693805.3.579.2.356 1961 Unknown [id number] 2.16840.1.183100.3.579.2.356 1961 Unknown [id number] 2.16840.1.305098.3.579.2.356 1961 Unknown [id number] 2.16.840.1.597282.3.579.2.356 1961 Unknown [id number] 2.16.840.1.531014.3.579.2.356 1961 Unknown [id number] 2.16.840.1.040629.3.579.2.356 1961 Unknown [id number] 2.16.840.1.182453.3.579.2.356 1961 Unknown [id number] 2.16.840.1.291082.3.579.2.356 1961 Unknown [id number] 2.16.840.1.251513.3.579.2.356 1961 Unknown [id number] 2.16.840.1.247083.3.579.2.356 1961 Unknown [id number] 2.16.840.1.907596.3.579.2.356 1961 Unknown [id number] 2.16.840.1.629523.3.579.2.593 1961 Unknown [id number] 2.16.840.1.519467.3.579.2.593 1961 Unknown [id number] 2.16.840.1.571430.3.579.2.593 1961 Unknown [id number] 2.16.840.1.215327.3.579.2.593 1961 Unknown [id number] 2.16.840.1.685471.3.579.2.593 1961 Unknown [id number] 2.16.840.1.375434.3.579.2.593 1961 Unknown [id number] 2.16.840.1.197488.3.579.2.593 1961 Unknown [id number] 2.16.840.1.896641.3.579.2.593 1961 Unknown [id number] 2.16.840.1.914291.3.579.2.593 1961 Unknown [id number] 2.16.840.1.540322.3.579.2.593 1961 Unknown [id number] 2.16.840.1.407567.3.579.2.593 1961 Unknown [id number] 2.16.840.1.745359.3.579.2.593 1961 Unknown [id number] 2.16.840.1.173209.3.579.2.593 1961 Unknown [id number] 2.16.840.1.900748.3.579.2.593 1961 Unknown [id number] 2.16.840.1.968521.3.579.2.593 1961 Unknown [id number] 2.16.840.1.143380.3.579.2.593 1961 Unknown [id number] 2.16.840.1.379326.3.579.2.593 1961 Unknown [id number] 2.16.840.1.224410.3.579.2.593 1961 Unknown [id number] 2.16.840.1.256777.3.579.2.593 1961 Unknown [id number] 2.16.840.1.702296.3.579.2.1314 1961 Unknown [id number] 2.16.840.1.308990.3.579.2.1259 1961 Unknown [id number] 2.16.840.1.223160.3.579.2.727 1961 Unknown [id number] 2.16.840.1.643762.3.579.2.727 1959 Unknown [id number] 1959 Unknown [id number] Unknown Unknown MMO [id number] Unknown [id number] Unknown [employer] [id number] Unknown [id number] 2.16.840.1.768048.3.579.2.531 Unknown [id number] 2.16.840.1.869044.3.579.2.531 Social History Date Type Detail Facility [facility] Start: 07-14-2024 Tobacco smoking consumption unknown [facility] Start: 01-24-2022 End: 02-15-2022 Tobacco smoking status Never smoked tobacco (finding) [facility] Work Phone: Tobacco smoking status Never [facility] [place] Start: 02-02-2025 Sex Assigned At Male [facility] [place] Start: 1960 Sex Assigned At Male [facility] Start: 07-14-2024 Alcohol intake Alcohol Use Details [facility] Start: 10-17-2022 Sexual Orientation Choose not to disclose [facility] Start: 10-14-2024 Sex Male (finding) [facility] Start: 1960 Sex assigned at Not on file [facility] Start: 02-02-2025 Tobacco use and exposure Smokeless tobacco non-user [facility] Start: 02-02-2025 Alcoholic beverage intake Ex-drinker (finding) [facility] Start: 02-02-2025 History of Social function [facility] Medical Equipment Procedure Code Equipment Code Equipment Origin al Text Equipment Identifier Dates Cystoscopy, with ureteral calculus manipulation and stent placement Polymeric ureteral stent ([id number] FDA Start: 02-15-2022 Cystoscopy, with ureteral calculus manipulation and stent placement Polymeric ureteral stent [id number] FDA Start: 01-19-2022 Goals Date Patient Goal Desired Activity /State Functional Status Date Assessment Result Facility 02-02-2025 Patient Health Quest ionnaire 2 item (PHQ-2) [Reported] [facility] 04-13-2024 Functional Status N/A [facility] 04-08-2023 Functional Status N/A [facility] 10-16-2022 Functional Status N/A [facility] 10-02-2022 Functional Status N/A General [facility]acker gabrielle Schultz 01-30-2022 Functional Status N/A [facility] 01-24-2022 Functional Status N/A General Thacker gabrielle Schultz Functional observable [facility] Mental Status Date Assessment Result Facility 09-26-2021 Cognitive functions 27-Sep-19 2212:26 [facility] Clinical Notes 10-31-2020 to 04-13-2024 [...] include: ?8 oz (237 mL) of milk, ufkmnrs-ikskkbakygsk-tunct milk, and calcium-fortifiedfruit juice. Calcium-fortified means that [...] ?Spinach (cooked), rhubarb, beets, sweet potatoes, and Moldovan chard. ?Peanuts. ?Potato chips, azerbaijani fries, and baked potatoes with skin on. ?Nuts and nut products. ?Chocolate. If you regularly take a diuretic medicine, make sure to eat at least 1 or 2 servings of fruits or vegetables that are high in potassium each day. These include: ?Avocado. ?Banana. ?Greenview, prune, carrot, or tomato juice. ?Baked potato. [...] magnesium, fish oil, or vitamin B6. Take tpuw-oom-gbkcpsz and prescription medicines only as told by [...] Casseroles. Pizza. Lasagna. Frozen meals. Potato chips. Greek fries. The items listed above may not [...] provider. Document Revised: 09/20/2022 Document Reviewed: 09/20/2022 [employer] Patient Education 2023 [employer] Follow Up Care 04/08/2023 11:14:40 With:CHRIS RIVERA, Shun Mirza, URL Address: Josy ERNST [address] [address]- When: Unknown [facility] Maddy 04-13-2024 Note Patient Education Nephrology Dietary [...] ? 8 oz (237 mL) of milk, bowgmyt-whumukewcytx-gezjf milk, and calcium-fortifiedfruit juice. Calcium-fortified means that [...] Spinach (cooked), rhubarb, beets, sweet potatoes, and Moldovan chard. ? Peanuts. ? Potato chips, azerbaijani fries, and baked potatoes with skin on. ? Nuts and nut products. ? Chocolate. ? If you regularly take a diuretic medicine, make sure to eat at least 1 or 2 servings of fruits or vegetables that are high in potassium each day. These include: ? Avocado. ? Banana. ? Greenview, prune, carrot, or tomato juice. ? Baked [...] fish oil, or vitamin B6. ? Take ible-emf-gvnyzia and prescription medicines only as told by your health care provider. These include suppleme (more content not included)... [facility] 09-19-2023 History of Presen t illness Narrative Encounter Date Shoulder Knee [facility] Work Phone: [phone] 552-495810-16-2023 Hospital Discharge instructions Patient Education 04/08/2023 11:15:31 [...] include: ?8 oz (237 mL) of milk, ioohqmf-mluyzfutiqhk-dfuzo milk, and calcium- fortifiedfruit juice. Calcium-fortified means [...] ?Spinach (cooked), rhubarb, beets, sweet potatoes, and Moldovan chard. ?Peanuts. ?Potato chips, azerbaijani fries, and baked potatoes with skin on. ?Nuts and nut products. ?Chocolate. If you regularly take a diuretic medicine, make sure to eat at least 1 or 2 servings of fruits or vegetables that are high in potassium each day. These include: ?Avocado. ?Banana. ?Greenview, prune, carrot, or tomato juice. ?Baked potato. [...] magnesium, fish oil, or vitamin B6. Take uumv-tvs-ojdllox and prescription medicines only as told by [...] Casseroles. Pizza. Lasagna. Frozen meals. Potato chips. Greek fries. The items listed above may not [...] provider. Document Revised: 02/19/2022 Document Reviewed: 02/19/2022 [employer] Patient Education 2022 [employer] Follow Up Care 10/16/2022 15:04:55 With:CHRIS RIVERA, Shun Mirza, URL Address: [address] [place], [place] [address]- When: Unknown [facility] Maddy [id number] NoteHNO ID: [id number] Author: Antwan Sorinao MD Service: ? Author Type: Physician Type: [...] next visit: No PCP: Dania Armstrong MD [facility] [phone] FELLOW / RESIDENT: No fellow or resident assisted in this office visit. Antwan Soriano, [facility]04-25-2023 Hospital Discharge instructions Patient Education [...] include: ?8 oz (237 mL) of milk, tbqdxyq-fyprmebjsdlx-delza milk, and calcium- fortifiedfruit juice. Calcium-fortified means [...] ?Spinach (cooked), rhubarb, beets, sweet potatoes, and Moldovan chard. ?Peanuts. ?Potato chips, azerbaijani fries, and baked potatoes with skin on. ?Nuts and nut products. ?Chocolate. If you regularly take a diuretic medicine, make sure to eat at least 1 or 2 servings of fruits or vegetables that are high in potassium each day. These include: ?Avocado. ?Banana. ?Greenview, prune, carrot, or tomato juice. ?Baked potato. [...] magnesium, fish oil, or vitamin B6. Take dqga-ivx-hubeqzs and prescription medicines only as told by [...] Casseroles. Pizza. Lasagna. Frozen meals. Potato chips. Greek fries. The items listed above may not [...] provider. Document Revised: 02/19/2022 Document Reviewed: 02/19/2022 [employer] Patient Education 2022 [employer] Follow Up Care 02/19/2022 10:35:10 With:CHRIS RIVERA, Shun Mirza, URL Address: [address] [facility] [address] [place], [place] [address]- When: Unknown [facility] Maddy [id number] NotePROCEDURE: XR FOOT RT MIN 3 VIEWS [...] Electronically authenticated by: LAURY ZEPEDA Date: 2022-08-16 18:55[facility]01-26-2023 NotePROCEDURE: XR FOOT RT MIN 3 [...] Electronically authenticated by: LAURY ZEPEDA Date: 2022-07-19 12:30[facility]01-13-2023 NotePROCEDURE: XR FOOT RT MIN 3 [...] Electronically authenticated by: LAURY ZEPEDA Date: 2022-07-06 15:41[facility]12-15-2022 NotePROCEDURE: XR ANKLE RT MIN 3 [...] Electronically authenticated by: BANDAR SAENZ Date: 2022-06-07 14:32[facility]12-15-2022 NotePROCEDURE: XR ANKLE RT MIN 3 [...] Electronically authenticated by: BANDAR SAENZ Date: 2022-06-07 14:32[facility]08-09-2022 Hospital Discharge instructions Patient Education 01/30/2022 [...] include: ?Spinach. ?Rhubarb. ?Beets. ?Potato chips and azerbaijani fries. ?Nuts. If you regularly take a diuretic medicine, make sure to eat at least 1 2 fruits or vegetables high in potassium each day. These include: ?Avocado. ?Banana. ?Greenview, prune, carrot, or tomato juice. ?Baked potato. [...] Casseroles. Pizza. Lasagna. Frozen meals. Potato chips. Greek fries. Summary You can reduce your risk [...] 10/05/2011 Document Revised: 09/30/2019 Document Reviewed: 05/21/2017 [employer] Patient Education 2020 [employer]. Follow Up Care 01/24/2022 12:02:31 With:CHRIS RIVERA, Shun Mirza, URL Address: [facility] [employer] [address] [place], [place] [address]- When: Unknown [facility] Maddy [id number] NoteSend Summary: Discharge Summary Providers: Provider RoleProvider Name Sal Perez Nicholas PrimaryHoy, Douglas M Note Recipients: Dania Armstrong MD - [id number] [] Discharge: Summary: Admission Date: .26-Sep-2021 06:01:00 [...] floor. Patient was initially started on dilaudid CROWN POUNCER x24 hours and then transitioned to an [...] HAVE ANTONIO REMOVED IN 3 WKS. AT [facility] [address] [facility] 5TH FLOOR ON 10/18/2021 AT 0930 WITH KENTON SANTIAGO. REHAB FACILITIES OR HOME CARE MAY REMOVE ANTONIO OR SUTURES. Wound Site: BACK (Lumbar Spine) Wound Type: surgical incision Change Dressing: daily Cleanse With: soap and water Cover With: abdominal dressing Tape With: paper tape Instructions: no lotions, creams, or tub soaks Other Instructions: PLEASE HAVE ANTONIO REMOVED IN 3 WKS. AT [facility] [address] [facility] 5TH FLOOR ON 10/18/2021 AT 0930 [...] to Schedule in: 6 weeks, PLEASE CALL [phone] TO SCHEDULE YOUR APPOINTMENT FOR 5-6 WEEKS FOLLOWING YOUR SURGERY. Location: [facility] [address] [facility] [facility] OR [address] [facility]/ [facility] [address], Phone Number: Office: (September,/[place]) - [phone] Discharge Medications: Home Medication NIFEdipine 30 mg [...] 1-2 tab(s) orally every (more content not included)...[facility]04-06-2022 NoteRehab: Info: Mode of Treatmentoccupational therapy; co-evaluation with PT for pt safety and to optimize pt's therapeutic potential Time IN10:00 Time OUT10:27 Total Treatment [id number] Patient in ... at end of sessionchair; alarm on Communicated with ... at end of sessionbedside nurse Patient Effortexcellent Symptoms Noted During/After Treatmentnone Patient Profile Reviewedyes Onset of Illness/Injury or Date of [id number] Reason for ReferralXLIF L3/4, 4/5;2. Navigated percutaneous [...] WFL Mobility/Tone: Bed Mobility Assessment/Interventionssupine to sit Wscxaa-gv-Lqi [place] (Bed Mobility)standby assist; verbal cues Assistive Device (Bed Mobility)bed rails Comment, Bed MobilityVia log rolling technique Transfer Assessment/Interventionssit to stand transfer; stand to sit transfer Sit-Stand [place] (Transfers)standby assist; verbal cues Sit-Stand Assistive Device (Transfers)no AD Stand-Sit [place] (Transfers)standby assist; verbal cues Stand-Sit Assistive Device (Transfers)no AD Safety Issues Impacting Function (Mobility)insight into deficits/self awareness Impairments Impacting Function (Mobility)balance; pain ActivityPt completed functional household distance with SBA for safety (pt declined use of device) ADL: BADL Assessment/Interventionlower body dressing; grooming; toileting [place] Level (Lower Body Dressing)pants/bottoms; moderate assist (50% patient effort) Position (Lower Body Dressing)edge-of-bed sitting [place] Level (Grooming)supervision Position (Grooming)standing Comment (Grooming)Standing oral care at sink [place] Level (Toileting)supervision Position (Toileting)standing Motor: Sitting, Static (Balance)good balance Sitting, Dynamic (Balance)good balance Ffe-ne-Dcxzu (Balance)fair balance Standing, Static (Balance)fair balance Standing, [...] Total Score17 Short Term Goals: Transfer: Established [id number] Transfer: Transfer Type Yabvxzk-lo-kfxkg/cwwxt-hu-zdx; (more content not included)...[facility]04-05-2022 NotePost Operative Note: PreOp Diagnosis: Lumbar stenosis, spondylolisthesis L3-5 Post-Procedure Diagnosis: Lumbar stenosis, spondylolisthesis L3-5 Procedure: ALIF via extreme lateral approach L3/4, L4/5 with cage x 2 PSF with instrumentation L3-5 Surgeon: Dr. Richardson Resident/Fellow/Other Barrel Charrer: Renny Steinberg Estimated Blood Loss (mL): 150 [...] Completion Last Updated: 04-Oct-2021 15:17 by Sal Richardson)[facility] 09-26-2021 History of Present illness Narrative* Jay is a pleasant 62-year-old elsib-hycj-plrbmgjc male who presents today with his for [...] not corrected for spelling or grammatical errors. QM-Ajoigiylatfg-Hhziajh 5FL DO Work Phone: 1(808) 135-290704-05-2022 NoteHistory of Present Illness: History Present Illness: [...] the note. I personally evaluated the patient [id number] Electronic Signatures: Sal Richardson) (Signed 29-Sep-2021 11:39) Authored: Note Completion Co-Signer: History of Present Illness, Allergies, Home Medication Review, Impression/Procedure, ERAS, Physical Exam, Consent, Note Completion Timothy Steinberg (Resident)) (Signed 26-Sep-2021 05:59) Authored: History of Present Illness, Allergies, Home Medication Review, Impression/Procedure, ERAS, Physical Exam, Consent, Note Completion Last Updated: 29-Sep-2021 11:39 by Sal Richardson)[facility] 08-25-2021 Reason for referral (narrative)* Reason for Referral: XLIF L3/4, 4/5;2. 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 Richardson Resident/Fellow/Other Barrel Charrer: Skip/ Katalina Procedure: anterior cervical discectomy/ decompression, [...] Completion Last Updated: 27-Jun-2021 14:14 by Sal Richardson)[facility] 06-21-2021 NoteHistory & Physical Reviewed: [...] the note. I personally evaluated the patient [id number] Electronic Signatures: Sal Richardson) (Signed 27-Jun-2021 13:45) Authored: Note Completion Co-Signer: History & Physical Reviewed, ERAS, Consent, Note Completion Cheikh August (Resident)) (Signed 21-Jun-2021 06:23) Authored: History & Physical Reviewed, ERAS, Consent, Note Completion Last Updated: 27-Jun-2021 13:45 by Sal Richardson)[facility] 12-22-2020 History of Present illness [...] for spelling or grammatical errors * . AC-Tzshgfghmfkv-Zkntry [address] Work Phone: 1(390) 429-531305-10-2021 History of Present illness Eeiodpnuc89 yr old male with back pain. 10/[facility] Work Phone: 1(984) 881-927005-10-2021 History of Present illness Narrative* 60 yr [...] foot surgeries and total knee replacement. [facility] Work Phone: consult note* Clinical Note Date No Information [facility] Work Phone: Discharge summary* Clinical Note Date No Information [facility] Work Phone: Evaluation + Plan note Future Appointments Appointment Date:01/30/2022 09:15:00 AM Scheduled Provider:Shun MACHADO MD Location[facility] Appointment Type:URO Office Visit Appointment Date:07/31/2022 02:00:00 PM Scheduled Provider[facility] [address] General Surgery [place] Evaluation + Plan note Future Appointments Appointment Date:07/31/2022 02:00:00 PM Scheduled Provider:Arely LOGAN MD Location: [place] Appointment Type:[place] [address] [facility] Evaluation + Plan note Future Appointments Appointment Date:10/16/2022 02:15:00 PM Scheduled Provider:Shun MACHADO MD Location[facility] Appointment Type:URO Office Visit Future Scheduled Tests Radiology* XR Abdomen 1 View 02/19/22 General Surgery [place] Evaluation + Plan note Future Appointments Appointment Date:02/22/2023 10:45:00 AM Scheduled Provider:Shun MACHADO MD Location:[facility] Appointment Type:URO Office Visit Future Scheduled Tests Radiology* XR Abdomen 1 View 02/19/22 [facility] Evaluation + Plan note Future Appointments Appointment Date:04/13/2024 09:15:00 AM Scheduled Provider:Shun MACHADO MD Location[facility] Appointment Type:URO Office Visit [facility] evaluation + Plan note Future Appointments Appointment Date:04/12/2025 08:15:00 AM Scheduled Provider:Shun MACHADO MD Location[facility] Appointment Type:URO Office Visit [facility] evaluation note* Neurological: alert and oriented v3Hqtscknoxbtayvg: Spine Exam:Dressings CDINo bruising, swelling, or erythemaL1: [...] appearing, no acute distress resting in bed [facility] note[facility] assessment information available [facility] Work Phone: Evaluation note* Type Assessment Date No Information [facility] Work Phone: Evaluation note* Diagnosis Arthritis of right shoulder- Primary Pre-op exam Raynaud's disease without gangrene Age related osteoporosis, unspecified pathological fracture presence Primary hypertension Unspecified essential hypertension Lupus erythematosus, unspecified form documented in this encounter [facility]* Clinical Note Date No Information [facility] Work Phone: History of Present illness Narrative* [...] not corrected for spelling or grammatical errors. HW-Hgspxlxgcmqf-Voseylx 5FL DO Work Phone: Hospital course Narrative No data available for this section General Surgery [place] [facility] Discharge instructions* Activity:activity as tolerated and [...] PLEASE HAVE ANTONIO REMOVED IN 3WKS. AT [facility] [address] [facility] 5TH FLOOR ON 10/18/2021 AT 0930 WITH KENTON SANTIAGO.REHAB FACILITIES OR HOME CARE MAY REMOVE ANTONIO OR SUTURES. * Wound Care 2:Wound Site: BACK (Lumbar Spine)Wound Type: surgical incisionChange Dressing: dailyCleanse With: soap and waterCover With: abdominal dressingTape With: paper tapeInstructions: no lotions,creams, or tub soaksOther Instructions: PLEASE HAVE ANTONIO REMOVED IN 3 WKS. AT [facility] [address] [facility] 5TH FLOOR ON 10/18/2021 AT 0930 [...] to Schedule in: 6 weeks, PLEASE CALL [phone] TO SCHEDULE YOUR APPOINTMENT FOR 5-6 WEEKS FOLLOWING YOUR SURGERY.[address] 5TH FLOOR OR [address] [place] [address]/ [facility] [address], [phone] Number: Office: (September,./[place]) - [phone]: Please Call Emmie Gallagher RN at [phone] For Any Post-Op Questions [facility] No data available for this section General Surgery [place] Instructions* Date Instruction Additional Infor mation No Information [facility] [place] Work Phone: Progress note No data available for this section General Surgery [place] Progress note* Clinical Note Date No Information [facility] Work Phone: Remzgh for referral (narrative)* Reason For Referral No Information [facility] Work Phone: Revmhf for referral (narrative)No reason for referral information availableBlanchard Valley Health [facility] Work Phone: Summary Purpose Family History No [...] weeks. He lives far away, in the [facility]. If he gets better with the injections, perhaps we can watch wfcm-qqo-mwx and this is obviously what we are [...] weeks. He lives far away, in the [facility]. If he gets better with the injections, perhaps we can watch hpjv-qym-obr and this is obviously what we are [...] 04/12/2021 is available from the [facility] on a CD. This shows evidence of [...] section and content) DATE CREATED AUTHOR 01/14/2021 [facility] DATE CREATED AUTHOR AUTHOR'S ORGANIZ ATION 03/11/2021 [facility] DATE CREATED AUTHOR AUTHOR'S ORGANIZ ATION 08/06/2021 [facility] DATE CREATED AUTHOR AUTHOR'S ORGANIZ ATION 05/03/2022 [facility] DATE CREATED AUTHOR AUTHOR'S ORGANIZ ATION 05/05/2022 [facility] Center DATE CREATED AUTHOR AUTHOR'S ORGANIZ ATION 11/30/2022 [facility] DATE CREATED AUTHOR AUTHOR'S ORGANIZ ATION 03/14/2023 [facility] DATE CREATED AUTHOR AUTHOR'S ORGANIZ ATION 07/16/2024 [facility] DATE CREATED AUTHOR AUTHOR'S ORGANIZ ATION 02/03/2025 [facility] EPIC DATE CREATED AUTHOR AUTHOR'S ORGANIZ ATION 03/15/2025 [facility] DATE CREATED AUTHOR AUTHOR'S ORGANIZ ATION 03/30/2025 [facility] <item> Privacy Markings (unrecogniz ed section [...] (start - stop) Status Members No Information [employer] Super[employer] Relationship Specialty Start Date End Date Unallocated, Christina Murray MD [facility] [place] [address] PCP - General Family Medicine 07/08/23 [employer] Super[employer] Relationship Specialty Start Date End Date Unallocated, Christina Murray MD [facility] S[facility] [place] [address] PCP - General Family Medicine 07/08/23 [employer] Supervisor Relationship Specialty Start Date End Date Unallocated, Christina Murray MD [facility] [place] SIFUENT[place] [address] PCP - General Family Medicine 07/08/23 Team [...] BE BASED ON THE PRIMARY CLINICAL RECORDS. [facility]. provides no warranty or guarantee of the accuracy or completeness of information in this document.
[2025-04-12 16:50] LABS: Prostate Specific Antigen Dx 2.03 ng/mL (<=4.00)
== END 2025-04-12 15:20 | disposition home or self-care (01) ==
LOC: LAB 15:22
PROVIDERS: PCP Family Medicine; Visit Provider Urology
DX: N40.0 Benign prostatic hyperplasia without lower urinary tract symptoms (principal)
CPT/HCPCS: 36415; 84153

== ENCOUNTER 2025-04-20 07:58 | Outpatient (OUT) | payer MEDICARE, SELFPAY ==
--- OUTSIDE RECORDS SUMMARY | 2025-04-19 23:59 | XMS_ITS | Continuity of Care Document ---
Author Organization [facility] Address [address] [facility] [place] [address] Care Team Providers Care Note Specialist Name Role Phone Yassine Mobley Primary Care Physician Encounter FT_AMBFIN [id number] Date(s): 04/19/25 - 04/19/25 [facility] [place] 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 Erectile dysfunction(Discharge Diagnosis) - 04/19/25 Family history of prostate cancer in father(Discharge Diagnosis) - 04/19/25 Elevated PSA(Discharge Diagnosis) - 04/19/25 Discharge Disposition: Home (Routine DC) Attending Physician: Gian PEREZ MD Encounter Type: Clinic Allergies, Adverse Reactions, Alerts SubstanceCriticalitySeverityReactionReaction SeverityStatuspenicillinRashActive Assessment and Plan Future Appointments Appointment Date:10/19/2025 08:30:00 AM Scheduled Provider:Gian PEREZ MD Location:[facility] Appointment Type:URO Office Visit Diagnostic Tests Pending * PSA Free & Total 06/24/25 Future Scheduled Tests Laboratory* Testosterone Level Total 03/26/25 Immunizations Given and Recorded VaccineDateStatusRefusal Reasoninfluenza virus vaccine, ixnrurmgejy12/4/22 Recordedinfluenza virus vaccine, ndsnmsrmnyg99/8/21Recordedinfluenza virus vaccine, znzxymugtvg98/11/20Recordedinfluenza virus vaccine, ebywzjpehpt52/14/20 RecordedSARSCoV2 mRNA(foyhdcled-fabl-kgecaw) vac564EvjuhvcbBQOY-CcB-9 (COVID-19) mRNA BNT-162b2 vax04/3414VjnjfvhcMOFL-XsM-7 (COVID-19) mRNA BNT-162b2 vax1//23KqtsnieuVRXI-OsT-0 (COVID-19) mRNA BNT-162b2 vax4/Recorded SARS-CoV-2 (COVID-19) mRNA BNT-162b2 vax3/55HvmeqdzzFPSY-YnN-5 (COVID-19) mRNA BNT-162b2 cib8370HkzeubweIUQT-WeZ-2 (COVID-19) mRNA BNT-162b2 sba4951 Recordedpneumococcal 13-valent fwhvbxe95/11/20Recordedhepatitis B pediatric vaccine10/25/11Recordedhepatitis B pediatric wlijlia20/7/11Recordedhepatitis B pediatric vaccine02/15/11Recordedhepatitis A adult vaccine10/25/11Recordedhepatitis A adult xwnxhit35/7/11Recordedhepatitis B adult vaccine01/20/98Recordedhepatitis B adult vaccine02/24/97Recordedhepatitis B adult vaccine11/11/96RecordedTd(adult) unspecified formulation11/02/96Recorded Not Given VaccineDateStatusRefusal Reasoninfluenza virus vaccine, lexisujvmoi73/23/19Not GivenPatient Refuses Medications cranberry Refill(s) 0 Start Date: 04/13/24 Status: Ordered Repeat number: 1 diclofenac sodium 75 mg Oral EC Tab 75 mg = 1 tab(s), Refills(s) 0 Start Date: 04/13/24 Status: Ordered Repeat number: 1 hydroxychloroquine 200 mg Tab 200 mg = 1 tab(s), Oral, BID Start Date: 04/15/19 Status: Ordered Repeat number: 1 irbesartan 300 mg Tab 300 mg = 1 tab(s), Refills(s) 0 Start Date: 04/13/24 Status: Ordered Repeat number: 1 NIFEdipine 30 mg ER Tab 30 mg = 1 tab(s), Oral, Daily, Refills(s) 0 Start Date: 01/19/22 Status: Ordered Repeat number: 1 Protonix 40 mg Tab-DR 40 mg = 1 tab(s), Oral, Daily Start Date: 04/15/19 Status: Ordered Repeat number: 1 tadalafil 10 mg Tab 10 mg = 1 tab(s), Oral, As Directed, PRN for erectile dysfunction, Take 1 tab by mouth one to two hours prior to sexual activity., # 30 tab(s), Refills(s) 3, Pharmacy: [facility], 170, cm, 10/16/22 14:31:00 EDT, Height/Length Dosing, 104.3, kg, 10/16/22 14:31:00 EDT, Weight Dosing Start Date: 10/16/22 Status: Ordered Quantity: 30.0 Unit: tab(s) Repeat number: 4 tiZANidine 4 mg Tab 8 mg = 2 tab(s), Oral, Bedtime, Refills(s) 0 Start Date: 01/19/22 Status: Ordered Repeat number: 1 Vital-D Oral, Daily, Refill(s) 0 Start Date: 04/13/24 Status: Ordered Repeat number: 1 Vitamin C Daily, Refills(s) 0 Start Date: 04/13/24 Status: Ordered Repeat number: 1 Zinc Refills(s) 0 Start Date: 04/13/24 Status: Ordered Repeat number: 1 Problem List ConditionConfirmationCourseEffective DatesStatusHealth StatusInformantBPH (benign prostatic hyperplasia)ConfirmedActiveBMI 30.0-30.9,adultConfirmed ResolvedBMI 33.0-33.9,adultConfirmedActiveCervical disc diseaseConfirmedActive DiverticulosisConfirmedActiveDiverticulitisConfirmed< 04/15/19ResolvedEczema ConfirmedActiveErectile dysfunctionConfirmedActiveEssential tremorConfirmed ActiveFamily history of prostate cancer in fatherConfirmedActiveHistory of kidney stonesConfirmedActiveHypertensionConfirmedActiveKidney stoneConfirmed ActiveLoose stoolsConfirmedActiveLumbar spondylosisConfirmedActiveLupusConfirmed ActiveMalignant melanoma of upper backConfirmedActiveSkin melanomaConfirmed< 05/15/19ResolvedMigrainesConfirmedActiveNauseaConfirmedActiveNeoplasm of uncertain behavior of skinConfirmedActiveOsteoarthritisConfirmedActiveAbdominal pain, periumbilicalConfirmedActiveElevated PSAConfirmedActiveRaynaud disease ConfirmedActiveAbdominal pain, RUQConfirmedActiveTremors of nervous system ConfirmedActiveAbnormal gallbladder ultrasoundConfirmedActiveHypocitraturia ConfirmedActive Procedures ProcedureDateRelated DiagnosisBody SiteStatusLithotripsy01/19/22Completedrt ESWL, strent placement01/19/22CompletedArthroplasty of kneeCompletedCervical discectomy CompletedColonoscopyCompletedExcision of melanomaCompletedFusion of tarsal jointsCompletedProcedure on shoulderCompletedXLIF - extreme lateral lumbar interbody fusionCompleted Social History Social History TypeResponseSmoking StatusNever (less than 100 in lifetime); Smoking Cessation Yes entered on: 04/19/25Birth SexMaleSex RepresentationMale (finding) Hospital Discharge Instructions Patient Education 04/19/2025 09:06:00 Prostate Cancer Screening Prostate Cancer Screening Prostate cancer screening is testing that is done to check for the presence of prostate cancer in men. The prostate gland is a walnut-sized gland that is located below the bladder and in front of therectum in males. The function of the prostate is to add fluid to semen during ejaculation. Prostatecancer is one of the most common types of cancer in men. Who should have prostate cancer screening? Screening recommendations vary based on age and other risk factors, as well as between the professional organizations who make the recommendations. In general, screening is recommended if: ??? You are age 50 to 70 and have an average risk for prostate cancer. You should talk with your health care provider about your need for screening and how often screening should be done. Because most prostate cancers are slow growing and will not cause , screening in this age group is generally reserved for men who have a 10- to 15-year life expectancy. ??? You are younger than age 50, and you have these risk factors: ??? Having a father, brother, or uncle who has been diagnosed with prostate cancer. The risk is higher if your family member's cancer occurred at an early age or if you have multiple family members with prostate cancer at an early age. ??? Being a male who is Black or is of [place] or sub-Saharan descent. In general, screening is not recommended if: ??? You are younger than age 40. ??? You are between the ages of 40 and 49 and you have no risk factors. ??? You are 70 years of age or older. At this age, the risks that screening can cause are greater than the benefits that it may provide. If you are at high risk for prostate cancer, your health care provider may recommend that you have screenings more often or that you start screening at a younger age. How is screening for prostate cancer done? The recommended prostate cancer screening test is a blood test called the prostate-specific antigen(PSA) test. PSA is a protein that is made in the prostate. As you age, your prostate naturally produces more PSA. Abnormally high PSA levels may be caused by: ??? Prostate cancer. ??? An enlarged prostate that is not caused by cancer (benign prostatic hyperplasia, or BPH). This condition is very common in older men. ??? A prostate gland infection (prostatitis) or urinary tract infection. ??? Certain medicines such as male hormones (like testosterone) or other medicines that raise testosterone levels. A rectal exam may be done as part of prostate cancer screening to help provide information about the size of your prostate gland. When a rectal exam is performed, it should be done after the PSA level is drawn to avoid any effect on the results. Depending on the PSA results, you may need more tests, such as: ??? A physical exam to check the size of your prostate gland, if not done as part of screening. ??? Blood and imaging tests. ??? A procedure to remove tissue samples from your prostate gland for testing (biopsy). This is theonly way to know for certain if you have prostate cancer. What are the benefits of prostate cancer screening? Screening can help to identify cancer at an early stage, before symptoms start and when the cancer can be treated more easily. ??? There is a small chance that screening may lower your risk of dying from prostate cancer. The chance is small because prostate cancer is a slow-growing cancer, and most men with prostate cancer from a different cause. What are the risks of prostate cancer screening? The main risk of prostate cancer screening is diagnosing and treating prostate cancer that would never have caused any symptoms or problems. This is called overdiagnosisand overtreatment. PSA screening cannot tell you if your PSA is high due to cancer or a different cause. A prostate biopsy is the only procedure to diagnose prostate cancer. Even the results of a biopsy may not tell you if your cancer needs to be treated. Slow-growing prostate cancer may not need any treatment other than monitoring, so diagnosing and treating it may cause unnecessary stress or other side effects. Questions to ask your health care provider ??? When should I start prostate cancer screening? What is my risk for prostate cancer? How often do I need screening? What type of screening tests do I need? How do I get my test results? What do my results mean? Do I need treatment? Where to find more information ??? The [place] [employer]: www.cancer.org ??? [place] [employer]: www.auanet.org Contact a health care provider if: ??? You have difficulty urinating. ??? You have pain when you urinate or ejaculate. ??? You have blood in your urine or semen. ??? You have pain in your back or in the area of your prostate. Summary ??? Prostate cancer is a common type of cancer in men. The prostate gland is located below the bladder and in front of the rectum. This gland adds fluid to semen during ejaculation. ??? Prostate cancer screening may identify cancer at an early stage, when the cancer can be treatedmore easily and is less likely to have spread to other areas of the body. ??? The prostate-specific antigen (PSA) test is the recommended screening test for prostate cancer,but it has associated risks. ??? Discuss the risks and benefits of prostate cancer screening with your health care provider. If you are age 70 or older, the risks that screening can cause are greater than the benefits that it may provide. This information is not intended to replace advice given to you by your health care provider. Make sure you discuss any questions you have with your health care provider. Document Revised: 12/04/2021 Document Reviewed: 12/04/2021 [employer] Patient Education ?? 2023 [employer]. Follow Up Care 04/13/2024 10:17:45 With:CHRIS RIVERA, Gian P, URL Address: [address] [place] [address] [address] [address]- When: Unknown Patient Care team information Care Team Personnel Name: Yassine Mobley MD Position: FT Physician Member Role: Primary Care Physician Address: [address] [place] [address] [place], [place] [address] Telecom: Care Team Related Persons Name: LI KING Name: LOCO SIMEON Name: GENESIS SIMEON Name: GENESIS SIMEON Insurance Providers Guarantor name: RG SIMEON Health Plan Information #: 1 Payer: A[employer] Payer Identifier: [id number] Member Number: [id number] Group Number: [id number] Subscriber Identifier: [id number] Relationship to Subscriber: self Coverage Type: MEDICARE Coverage Verification Date: 25 Telecom: [phone] Address: [facility] [address] [place], [place] [id number] [place] [address]
--- OUTSIDE RECORDS SUMMARY | 2025-04-20 08:02 | XMS_ITS | Clinical Summary ---
Author Organization [facility] Address [address] [place] [address] Care Team Providers Care Rn Quality Name Role Phone Yassine Mobley MD Primary Care Provider [phone] Allergies Active AllergyReactionsCriticalityNoted DateCommentsPenicillinsOther: See Fwajtwba17/20/2017 Medications MedicationSigDispense QuantityRefillsLast FilledStart DateEnd DateStatus hydroxychloroquine (PLAQUENIL) 200 mg tablet Take 200 mg by mouth twice daily.08/02/2019Active celecoxib (CELEBREX) 200 mg capsule Take 200 mg by mouth twice daily.08/02/2019Active HYDROcodone-acetaminophen (NORCO) 5-325 mg per tablet TAKE 1 TABLET BY MOUTH EVERY 4 HOURS NEEDED FOR PAIN (max 6 (SIX) TABLETS in 24 HOURS)07/25/2019Active losartan (COZAAR) 25 mg tablet Take 25 mg by mouth once daily.08/02/2019Active NIFEdipine ER (PROCARDIA XL) 30 mg 24 hr tablet Take 30 mg by mouth once daily.08/02/2019Active pantoprazole DR (PROTONIX) 40 mg tablet Take 40 mg by mouth once daily.08/02/2019Active ascorbic acid (VITAMIN C ORAL) Take by mouth.Active ZINC ACETATE ORAL Take by mouth.Active docosahexaenoic acid/epa (FISH OIL ORAL) Take by mouth.Active irbesartan (AVAPRO) 300 mg tablet Take 300 mg by mouth daily at bedtime.Active Active Problems No known active problems Family History Medical HistoryRelationCommentsHypertensionBrotherCancerFatherlungHypertension MotherMacular DegenMotherDiabetesNo Family HistoryRelationStatusCommentsBrother FatherMother Social History Tobacco UseTypesPacks/DayYears UsedDateSmoking Tobacco: NeverSmokeless Tobacco: Never Tobacco Cessation:Counseling Given: Not Answered Alcohol UseStandard Drinks/WeekCommentsNot Currently0 (1 standard drink = 0.6 oz pure alcohol)Area Deprivation IndexAnswerDate RecordedNational Score (1-100), lower number is lower fbic193203/12/2023State Score (1-10), lower number is lower [id number] from: https://www.neighborhoodatlas.medicine.[facility]/. Last address used for [address] [address]/12/2023Sex and Gender InformationValueDate RecordedSex Assigned at BirthNot on fileLegal SexMale 08/24/2019 4:49 PM ESTGender IdentityNot on fileSexual OrientationNot on file Plan of Treatment Health MaintenanceDue DateLast DoneCommentsAnxiety Ohydrlomi60/01/1979Depression Pjvxpmjei73/01/1979HIV Dxaurlvtj34/01/1979Hepatitis C Ikhueoglz92/01/1979Lipid Nlxtzifkt77/01/1996DTaP,Tdap,Td Vaccine (1 - Tdap)CT Yhafzxwxcufi17/01/2006Cologuard (FIT-DNA)03/24/20061613Gneuabvflpt44/01/2006 Colorectal Cancer Ssecuekbb60/01/2006Fecal Occult Blood2006Sigmoidoscopy 2006Shingrix Vaccine (1 of 2)2011Pneumococcal Vaccine: 50+ (2 of 2 - PCV20 or PCV21)/04/2020Medicare Advantage Annual Wellness Visit 06/24/2024Diabetes Zabwtagfw18/06/722356/11/2021, 06/02/2021ovid-19 Vaccine ( - season)505/, 06/26/2021, 10/06/2020, Additional history existsInfluenza Vaccine (#1)/09/2021, 05/01/2021, 05/04/2020, Additional history existsProstate Cancer Screening Discussion /2RSV Vaccine (1 - 1-dose 75+ series)[address] [place] [address] Care Teams Team MemberRelationshipSpecialtyStart DateEnd Date Yassine Mobley MD PCP - GeneralFamily Medicine08/24/19
--- OUTSIDE RECORDS SUMMARY | 2025-04-20 08:02 | XMS_ITS | Patient Health Record ---
Author Organization [facility] Address [address] [place] [address] Care Team Providers Care Pool Finisher Name Role Phone AnthonyYassine nguyen Primary Care Provider Unavailgricelda e Juan Carlos Barrientos Unavailable [phone] Lyssa Torres Unavailable Allergies No Known Allergies Results Component Value Reference Range Notes SCC- SHOULDER 3 VIEW LEFT 73 030 Reviewed date:07/14/2024 03:36:33 PM Interpretation: Performing Lab: Notes/Report: SCC- SHOULDER 3 VIEW RIGHT 7 3030 Reviewed date:07/14/2024 03:36:40 PM Interpretation: Performing Lab: Notes/Report: MRI : Shoulder W/O Contrast Right - 29644 Reviewed date:09/01/2024 10:38:50 AM Interpretation: Performing Lab: Notes/Report: Reason For Referral Reason PINKY................. PLEASE OBTAIN AUTHORIZATION FOR MRI RIGHT SHOULDER Diagnosis 1 Acute pain of right shoulder (M25.511) Referral Organization [facility] Referring Provider First Name Juan Carlos Referring Provider Last Name Iliana Referring Provider Speciality Orthopedic Surgery Referred Organization [facility] antony Referred Address [place], [place], Procedure 1 MRI Joint Upper Ext w/o Dye ([address]302) General Notes Jacquie Elder 025 02:03:47 PM >PER AVAILITY, NO AUTH REQUIRED MA NOTIFIED REF FAXED TP Calderon HERNANDEZ Monica 07/14/2024 10:20:10 AM >FAXED ORDER Referral Priority Routine Social History Tobacco Use: Social History Observation Description Date Details (start date - stop date) Never Smoker NA - NA AUDIT-C (Standard) Question Answer Notes Did you have a drink containing alcohol in the p ast year? No Cdmrnj2AiujeetpmrlvynHtjtdgovWchhjgr Control (Standard) Question Answer Notes Tobacco use: Nonsmoker Problems Problem Type SNOMED Code ICD Code Onset Dates Problem Status W/U Status Risk Notes Problem [id number] Primary osteoarthritis, r ight shoulder (M19.011) A[id number] osteoarthritis, left shoulder (M19.012)ActiveconfirmedProblemDigital mucous cyst (604092269)Mucous cyst of finger (M67.449)LfjzfndtgfaqwknBkrtrup44904132421494540Bebfwhfzm of finger of right hand (M19.041)NdgkwdwgumiyzouSxazlea38995586800607757Koqf of right rotator cuff, unspecified tear extent, unspecified whether traumatic (M75.101)Active confirmed Vital Signs Height 5'9 in 09/07/2024 Odchvr499 lbs09/07/2024BMI33.22009/07/2024 Encounters Encounter Location Date Provider Diagnosis [facility] [address] [place] [address] 07/13/2024 Lyssa Torres Acute pain of right shoulder M25.511 ; Acute pain of left shoulder M25.512 ; Tear of right rotator cuff, unspecified tear extent, unspecified whether traumatic M75.101 ; Primary osteoarthritis, left shoulder M19.012 and Primary osteoarthritis, right shoulder M19.011 [facility] [address] [facility] [address] 07/27/2024 Juan Carlos Barrientos Primary osteoarthritis, left shoulder M19.012 and Primary osteoarthritis, right shoulder M19.011 [facility] [address] [facility] [address] 08/17/2024 Juan Carlos Barrientos Tear of right rotator cuff, unspecified tear extent, unspecified whether traumatic M75.101 and Primary osteoarthritis, right shoulder M19.[address] [place] [address] [place] [address] 09/07/2024 [facility] Primary osteoarthritis, left shoulder M19.012 Assessments Encounter Date Diagnosis (ICD Code) Assessment Notes Treatment Notes Treatment Clinical Notes Section Notes 07/13/2024 Acute pain of left shoulder (ICD -10 - M25.512) Bilateral shoulder osteoarthritis Right rotator cuff weakness Prior ACDF 07/13/2024ute pain of right shoulder (ICD-10 - M25.511) Bilateral shoulder osteoarthritis Right rotator cuff weakness Prior ACDF 07/27/2024Primary osteoarthritis, right shoulder (ICD-10 - M19.011)07/27/2024 Primary osteoarthritis, left shoulder (ICD-10 - M19.012)08/17/2024Primary osteoarthritis, right shoulder (ICD-10 - M19.011)08/17/2024Tear of right rotator cuff, unspecified tear extent, unspecified whether traumatic (ICD-10 - M75.101) 09/07/2024Primary osteoarthritis, left shoulder (ICD-10 - M19.012)Left glenohumeral DJD07/13/2024Tear of right rotator cuff, unspecified tear extent, unspecified whether traumatic (ICD-10 - M75.101) Bilateral shoulder osteoarthritis Right rotator cuff weakness Prior ACDF 07/13/2024Primary osteoarthritis, left shoulder (ICD-10 - M19.012) Bilateral shoulder osteoarthritis Right rotator cuff weakness Prior ACDF 07/13/2024Primary osteoarthritis, right shoulder (ICD-10 - M19.011) Bilateral shoulder osteoarthritis Right rotator cuff weakness Prior ACDF 07/13/2024OtherToday I reviewed x-rays with the patient and even though his osteoarthritis is worse on the left, he is having greater pain and external rotation weakness on the right. I did order an MRI of the right shoulder to further evaluate for a rotator cuff tear. We will see him back in the office after imaging is complete to review and offer further recommendations. Bilateral shoulder osteoarthritis Right rotator cuff weakness Prior ACDF 07/27/2024OtherFor his right shoulder rotator cuff tear in the setting of arthritis I have discussed the various treatment options including reverse total shoulder arthroplasty, rotator cuff repair knowing that it will not cure any of his arthritis pain versus conservative treatment. His preference is to proceed c onservatively and has requested a repeat steroid injection.08/17/2024OtherFor his right shoulder osteoarthritis and rotator cuff tear he would like to try an intra-articularinjection.09/07/2024OtherPatient had good relief of his pain for his right glenohumeral steroid injection and I did perform a left glenohumeral corticosteroid injection today. We can see the patient back on an as-needed basis.Left glenohumeral DJD Plan Of Treatment No Information Insurance Providers Payer Name Payer Address Payer Phone Subscriber Number Group Number Insured Name Patient Relationship to Insured Coverage Start Date Coverage End Date Medicare Aetna [address] [place] [phone] [id number] Jorge SIMEON - patient is the insured Medications Administered Medication Instructions Date of Administration Dosage Notes BUPIVACAINE iWWBSBEPTKCOT68/17/20252 mLDepo-Avukfl21 mLDepo-Medrol mLDepo-Crsknv22 cQdmykglhoq71/03/20254 mLlidocaine mMosjkfdveh60/17/20252 mL
--- OUTSIDE RECORDS SUMMARY | 2025-04-20 08:02 | XMS_ITS | Clinical Summary ---
Author Organization [facility] Address [address] [place] [address] Phone Care Team Providers Care Platform Consultant Name Role Phone Yassine Mobley MD Primary Care Provider [phone] Social History Tobacco UseTypesPacks/DayYears UsedDateSmoking Tobacco: Never AssessedSex and Gender InformationValueDate RecordedSex Assigned at BirthNot on fileLegal Sex Male05/19/2022 5:51 AM ESTGender IdentityNot on fileSexual OrientationNot on file Last Filed Vital Signs Vital SignReadingTime TakenCommentsBlood Fuknotbf433/8609 9:15 AM EDT Aljxz316703/22/2021 9:15 AM HTCIwxbsgyzdvr14.7 ??C (98.1 ??F)03/22/2021 9:15 AM EDTRespiratory Aiws447203/22/2021 9:15 AM EDTOxygen Saturation--Inhaled Oxygen Concentration--Lrvzxo60.9 kg (218 lb 0.6 oz)06/21/2021 6:40 AM JMKTubcdy944.2 cm (5' 8.98 )06/21/2021 6:40 AM ESTBody Mass Index32.221 6:40 AM EST Plan of Treatment Health MaintenanceDue DateLast DoneCommentsCT Lbiyzorovbqs1961Colonoscopy 1961olorectal Cancer Dlokuwsju1961FIT-DNA (Cologuard)1961FIT 1961HIV Wtkvdzbak1961ipid Panel1961 7055Tigwmkdmjfxer1961 Yearly Adult Bwygbnza1961MMR Vaccines (1 of 1 - Standard series)1962 Hepatitis C Sgpmoryvn77/01/1979DTaP/Tdap/Td Vaccines (1 - Tdap)1983PSA Prostate Cancer Zhymawerl78/01/2011Pneumococcal Vaccine (1 of 1 - PCV)2011 Zoster Vaccines (1 of 2)2011Influenza Vaccine (#1)5COVID-19 Vaccine (1 - season)2025RSV High Risk: (Elderly (60+) or Population) (1 - 1-dose 75+ series)2036HIB VaccinesAged OutNo longer eligible based on patient's age to complete this topicHPV VaccinesAged OutNo longer eligible based on patient's age to complete this topicHepatitis A VaccinesAged OutNo longer eligible based on patient's age to complete this topic Hepatitis B VaccinesAged OutNo longer eligible based on patient's age to complete this topicIPV VaccinesAged OutNo longer eligible based on patient's age to complete this topicMeningococcal VaccineAged OutNo longer eligible based on patient's age to complete this topicRotavirus VaccinesAged OutNo longer eligible based on patient's age to complete this topic Medical Devices ImplantedTypeAreaManufacturerDevice IdentifierShelf Expiration DateModel / Serial / LotBone Matrix, Osteocel Pro Cellular, Medium Case [id number] Implanted:Qty: 1 on 06/21/2021 by Sal Curiel MDGraftNUVASIVE [id number] / [id number] / Description:Converted from Care Acute. Please see archived information for full log information.Bone Matrix, Osteocel Pro Cellular, Large Case [id number] Implanted:Qty: 1 on 09/26/2021 by Sal Curiel MDGraftNUVASIVE INC04/08/2026 [id number] / [id number] / Description:Converted from Care Acute. Please see archived information for full log information.Cohere Cervical, [id number] Case [id number] Implanted:Qty: 1 on 06/21/2021 by Sal Curiel MDImplantNUVASIVE INC [id number] / / [id number]:Converted from Care Acute. Please see archived information for full log information. Additional Information:per previous bill only jdr 1Cohere Cervical, [id number] 7 Case [id number] Implanted:Qty: 1 on 06/21/2021 by Sal Curiel, LeahlantNUVASIVE INC [id number] / / [id number]:Converted from Care Acute. Please see archived information for full log information. Additional Information:per previous bill only jdr 113 Mm Screw Case [id number] Implanted:Qty: 6 on 06/21/2021 by Sal Curiel, ImplantNUVASIVE [id number] / / Description:Converted from Care Acute. Please see archived information for full log information. Additional Information:per oracle jdr 136 Plate Case [id number] Implanted:Qty: 1 on 06/21/2021 by Sal Curiel, LeahlantNUVASIVE [id number] / / Description:Converted from Care Acute. Please see archived information for full log information. Additional Information:per oracle jdr 1Caspar Pin, 14mm Case [id number] Implanted:Qty: 2 on 06/21/2021 by Sal Curiel, LeahlanVibra Hospital of Southeastern MassachusettsStereomood INC [id number] / / Description:Converted from Care Acute. Please see archived information for full log information.Screw, Reline Mas Red, 6.5x45mm Poly 2c Case [id number] Implanted:Qty: 6 on 09/26/2021 by Sal Curiel, LeahlantNUVASIVE [id number] / / Description:Converted from Care Acute. Please see archived information for full log information.William, Reliroderick Mas, 5.5 X 80mm, Lordotic Case [id number] Implanted:Qty: 2 on 09/26/2021 by Sal Curiel, LeahlantNUVASIVE [id number] / / Description:Converted from Care Acute. Please see archived information for full log information.Pin, Percutaneous, 150mm, Stealth [place] Case [id number] Implanted:Qty: 1 on 09/26/2021 by Sal Curiel MDImplantMEDTRONIC INC [id number] / / [id number]:Converted from Care Acute. Please see archived information for full log information.Advena Electrode Sterrile Alligtor Clip Case [id number] Implanted:Qty: 1 on 09/26/2021 by Sal Curiel MDImplant09/06/2023 [id number] / / Description:Converted from Care Acute. Please see archived information for full log information. Additional Information:per oracle jdr 09/27/2021crew, Reline Lock, 5.5mm Open Tulip Case [id number] Implanted:Qty: 6 on 09/26/2021 by Sal Curiel MDNeuro Interventional ImplantNUVASIVE [id number] / / Description:Converted from Care Acute. Please see archived information for full log information.Spacer, Modulus Xlw, [id number], 10 Deg Case [id number] Implanted:Qty: 1 on 09/26/2021 by Sal Curiel, MDSpinal HardwareNUVASIVE INC [id number] / / [id number]:Converted from Care Acute. Please see archived information for full log information.Spacer, Modulus Xlw, [id number], 10 Deg Case [id number] Implanted:Qty: 1 on 09/26/2021 by Sal Curiel, MDSpinal HardwareNUVASIVE INC [id number] / / [id number]:Converted from Care Acute. Please see archived information for full log information. Care Teams Team MemberRelationshipSpecialtyStart DateEnd Date Yassine Mobley MD [address] [facility] [place] [address] [facility]06/20/21
--- OUTSIDE RECORDS SUMMARY | 2025-04-20 08:02 | XMS_ITS | Patient Health Record ---
Author Organization [email or web address] Address [address] [address], [place] [address] Care Team Providers Care Cylinder Press Feeder Name Role Phone Chance Schaffer Unavailable [phone] Allergies Allergen (clinical drug ingredient) Drug/Non Drug Allergy documented on EMR Reaction Allergy Type Onset Date Status Substance with penicillin st ructure and antibacterial mechanism of action (substance) Penicillins Unknown Dr mota Allergy Active Reason For Referral No Information Medications Medication SIG (Take, Route, Frequency, Duration) Notes Start Date End Date Status Losartan Potassium 25 MG Tablet 1 tablet Orally Once a day ActiveZinc AcetateActiveVitamin CActiveFish OilActiveIrbesartan 300 MG Tablet TAKE 1 TABLET BY MOUTH DAILY Oral; Duration: 30 DaysActivePantoprazole Sodium 40 MG Tablet Delayed ReleaseTAKE 1 TABLET BY MOUTH ONCE DAILY Oral; Duration: 30 DaysActiveNIFEdipine ER Osmotic Release 30 MG Tablet Extended Release 24 Hour TAKE 1 TABLET BY MOUTH DAILY Oral; Duration: 30 DaysActiveHydroxychloroquine Sulfate 200 MG TabletTAKE 1 TABLET BY MOUTH TWICE DAILY Oral; Duration: 30 Days ActiveCelecoxib 200 MG Capsule1 capsule as needed Orally Once a dayActive HYDROcodone-Acetaminophen 5-325 MG Tablet1 tablet as needed Orally every 6 hrs Active Social History Section Notes: Patient is a nonsmoker. No alcohol use. Patient is a nonsmoker. No alcohol use. Problems Problem Type SNOMED Code ICD Code Onset Dates Problem Status W/U Status Risk Notes Problem Localized, primary o steoarthritis of the ankle and/or foot (894392354) Primary osteoarthritis, right ankle and foot (M19.071) Activeconfirmed Encounters Encounter Location Date Provider Diagnosis [facility] [address] [address], [place] [address] 12/21/2024 Chance Karime Pain in right foot M79.671 ; Pain due to internal orthopedic prosthetic devices, implants and grafts, initial encounter T84.84XA and Primary osteoarthritis, right ankle and foot M19.071 [facility] [place], [facility] [address] [facility] [address], [place] [address] 03/18/2025 Chance Schaffer Foreign body in left foot, initial encounter S90.852A Assessments Encounter Date Diagnosis (ICD Code) Assessment Notes Treatment Notes Treatment Clinical Notes Section Notes 12/21/2024 Pain in right foot (ICD-10 - M79 .671) Pain at the front of the foot behind the toes has been present for two to three weeks. Symptoms maybe related to increased activity and recent change in footwear. Patient is about one year post-operation with a history of multiple surgeries on the foot. Pain is limiting activity to four to six hours on his feet. - Recommended use of padding or donut pads to reduce irritation from footwear. - Advised monitoring symptoms and to report if pain worsens or becomes recurrent. 12/21/2024Pain due to internal orthopedic prosthetic devices, implants and grafts, initial encounter (ICD-10 - T84.84XA) Irritation at the site of hardware, possibly related to a screw or staple head near the area of pain. Bone growth over the hardware has increased since last evaluation. Hardware position remains stable with no significant changes. - Recommended use of padding or donut pads to reduce friction from footwear. - Advised continued monitoring for changes in hardware irritation. 03/18/2025Foreign body in left foot, initial encounter (ICD-10 - S90.852A)After verbal consent a curret was used to remove loose skin covering the skin lesion which revealeda black fragment of suture consistent with 3-0 nylon which was removed with forceps. After removal of the suture and affected skin there was a partial thickness wound measuring 0.3 x 0.2 cm with no SOI. I recommended to monitor the area closely for infection and keep covered with band-aide until hea led. F/u in 2 weeks or call with nuuxhv0812/21/2024Primary osteoarthritis, right ankle and foot (ICD-10 - M19.071) Mild arthritis noted in the ankle joint, with a small spur seen on recent X-ray. Patient is about one year post-operation and may be at or near his expected recovery peak. History of multiple surgeries and prior steroid injections for the joint. - Discussed possible future interventions such as steroid injection or arthroscopic surgery if symptoms worsen. - Advised continued monitoring of symptoms and activity level. Plan Of Treatment No Information Insurance Providers Payer Name Payer Address Payer Phone Subscriber Number Group Number Insured Name Patient Relationship to Insured Coverage Start Date Coverage End Date [employer] [address] [address] [place] [address] [id number] Mai Carr - patient is the insured
--- NOTE | 2025-04-20 08:04 | MR_ITS ---
[id number] Patient Name: RG SIMEON MRN: [id number] date: 1960 Sex: M Assigned Patient Location: MRI Current Patient Location: MRI Accession/Order Number: [id number] Exam Date: 04/20/2025 08:45 Report Date: 04/20/2025 13:49 At the request of: DESIRAE MAGDALENO MD Procedure: MR shoulder LT wo con EXAMINATION: MRI OF THE LEFT SHOULDER CLINICAL HISTORY: Left Shoulder Pain COMPARISON: Shoulder series 07/13/2024 TECHNIQUE: Multiecho, multiplanar imaging was performed with use of an extremity coil. No contrast was administered. FINDINGS: Bones/Joints: Small joint effusion. Subacromial/subdeltoid bursitis. Moderate degenerative changes involving the AC and glenohumeral joints with cystic changes involving the humeral head. No fracture line. No significant bone marrow edema. Inferior glenohumeral ligament appears unremarkable. Labrum: Heterogenous in signal likely combination of degeneration and tear. Biceps tendon: Situated within the bicipital groove without focal abnormality. Supraspinatus: Tendinosis with partial-thickness tear joint side near its insertion upon the greater tubercle. There appears to be muscle atrophy suggestive of a chronic process. Infraspinatus: Tendinosis with partial-thickness tear joint side in the region of the musculotendinous junction approximately 2 cm from the greater tubercle. There is muscle atrophy suggestive of a chronic process. Teres Minor: Normal Subscapularis: Tendinosis or partial thickness tear extending into the retinacular fibers. MR/MR shoulder LT wo con IMPRESSION: MODERATE DEGENERATIVE CHANGES INVOLVING THE AC AND GLENOHUMERAL JOINTS WITHOUT FRACTURE. THERE IS ASSOCIATED SUBACROMIAL WELL SUBDELTOID BURSITIS AND SMALL JOINT EFFUSION. TENDINOSIS WITH PARTIAL-THICKNESS TEARS INVOLVING THE SUPRASPINATUS, INFRASPINATUS AND SUBSCAPULARIS DESCRIBED ABOVE. NO FULL-THICKNESS TEAR IS NOTED. HETEROGENOUS SIGNAL INVOLVING THE LABRUM LIKELY A COMBINATION OF DEGENERATION AND TEAR. Impression dictated by: Ayaan De Paz Jr., D.O. 04/20/2025 1:49 PM Dictation Location: [address] [address] Electronically authenticated by: [id number] Y Date: 04/20/2025 13:49
--- OUTSIDE RECORDS SUMMARY | 2025-04-20 08:06 | XMS_ITS | Clinical Summary ---
Author Organization [facility] Address [address] [place] [address] Care Team Providers Care Button Puncher Name Role Phone Unallocated, [facility] Provider Primary Care Provi vishal Allergies Active AllergyReactionsCriticalityNoted NkfdVzwtmzksCakdcsdrunpKqndNwz06/20/2017 Other Reaction(s): childhood, Other: See Comments Medications MedicationSigDispense QuantityRefillsLast FilledStart DateEnd DateStatus alendronate (Fosamax) 70 MG tablet 1 tablet 30 minutes before the first food, beverage or medicine of the day with plain water OrallyActive ascorbic acid (Vitamin C) 250 MG tablet every 12 (twelve) hours03/28/2023ctive biotin 10 MG tablet 1 (one) time each day at the same time03/28/2023ctive Celecoxib (CELEBREX PO) Take by mouth10/16/2022ctive celecoxib (CeleBREX) 200 MG capsule 1 capsule with food Orally twice dailyActive Cyanocobalamin ER 1000 MCG tablet controlled-release 1 (one) time each day at the same time03/28/2023ctive diclofenac (Voltaren) 75 MG EC tablet 75 mg04/13/2024ctive hydroxychloroquine (Plaquenil) 200 MG tablet 1 tablet Orally twice dailyActive irbesartan (Avapro) 300 MG tablet 300 mg04/13/2024ctive NIFEdipine (Procardia) 10 MG capsule 1 (one) time each day at the same timeActive NIFEdipine CC (Adalat CC) 30 MG 24 hr tablet 1 (one) time each day at the same timeActive pantoprazole (ProtoNix) 40 MG EC tablet TAKE 1 TABLET BY MOUTH DAILY for 30Active pyridoxine (B-6) 100 MG tablet every 12 (twelve) hours03/28/2023ctive traMADol (Ultram) 50 MG tablet 1 (one) time each day at the same timeActive NIFEdipine XL (Procardia XL) 30 MG 24 hr tablet Take 30 mg by mouth Daily12/30/2024tive Active Problems ProblemNoted DateDiagnosed DateOsteoarthritis of right umsrierg09/11/2025 Abdominal pain, szipqbewuoxth99/01/2025bdominal pain, RUQ01/22/2025bnormal gallbladder gpdqebypsy93/01/2025quired dnlsghucxsjvwmhyl87/01/2025rthritis of ankle01/22/2025rthritis of subtalar joint01/22/2025MI 33.0-33.9,adult 01/22/2025PH (benign prostatic hyperplasia)01/22/2025ervical disc disease 01/22/2025Intervertebral disc disorder of cervical region with myelopathy 01/22/2025Digital mucous cyst01/22/2025Erectile ivlfaukdrni84/01/2025Eczema 01/22/20251847Sdhbktyzlamwbt58/01/2025Essential vtlgkc8301/22/2025History of total right knee cgheatczobp64/01/2025History of kidney wvxbfm6101/22/2025Family history of prostate cancer in cncyyy0401/22/20256648Snwbtluuewbq03/01/2025Hypocitraturia 01/22/2025Lumbar jhjozobllne50/01/2025Loose putxtf0101/22/2025Kidney stone 01/22/2025Lupus zjbhlccitjcws10/01/1793Tyijyj68/01/2025Migraine headache 01/22/2025Malignant melanoma of upper back01/22/2025Neoplasm of uncertain behavior of skin01/22/20250834Holxuvsrbevbpx00/01/2025Nodule in hwwlqv3601/22/2025 Primary osteoarthritis of right knee01/22/2025Raynaud ipcgbhl7701/22/2025 Pseudarthrosis after fusion or sjepucevsiq73/01/2025Tremors of nervous system 01/22/2025rthritis of finger of right hand01/22/20257502Erdtdpqljmn61/01/2025Pain in right ankle and joints of right foot08/01/2025Pain in left foot01/22/2025Pain in right foot01/22/2025Presence of functional implant, xhadtjuxkxo30/01/2025 Primary localized osteoarthrosis of shoulder cqfovi6101/22/2025Primary osteoarthritis, left qxpgsoau31/01/2025Primary osteoarthritis, right shoulder 01/22/2025Tear of right rotator cuff01/22/2025Mucous cyst of zycizi6701/22/2025 Arthritis of right foot01/22/2025Unilateral primary osteoarthritis, left knee 01/22/2025Nonunion after rqrqmzroolw20/01/2025 Encounters DateTypeDepartmentCare KjqtOjzmbiyjjlk07/13/2025Results Follow-Up [facility] [address] [facility] [address] [place] [address] Theresa Stuart NP CBC and differential, Comprehensive metabolic panel02/02/2025 11:30 AM EDT Consult [facility] [address] [place] [address] Theresa Stuart NP Arthritis of right shoulder (Primary Dx); Pre-op exam; Raynaud's disease without gangrene; Age related osteoporosis, unspecified pathological fracture presence ; Primary hypertension ; Lupus erythematosus, unspecified form02/02/2025amboo flowsheet [facility] [address] [place] [address] Theresa Stuart NP 01/22/2025Orders Only [facility] [address] [place] [address] Niecy Hassan MA from Last 3 Months Immunizations ImmunizationAdministration DatesNext DueHep A, Adult10/25/2011,03/30/2011Hep B, Adolescent or Ixcsxstzc51/03/2012,03/30/2011,02/15/2011Hep B, adult01/20/1998, 02/24/1997,11/11/1996Influenza, Blsaateqngj06/14/2020Influenza, injectable, MDCK, preservative free, yzbfcaalhvuc41/20/2023,03/27/2022,05/01/2021,05/04/2020 Pneumococcal Conjugate PCV 13107/04/2019Td (adult), jacmwbjsnar18/12/1997 Social History Tobacco UseTypesPacks/DayYears UsedDateSmoking Tobacco: NeverSmokeless Tobacco: Never Tobacco Cessation:Counseling Given: No Alcohol UseStandard Drinks/WeekCommentsNot Currently0 (1 standard drink = 0.6 oz pure alcohol)PHQ-2AnswerDate RecordedPatient Health Questionnaire-2 Score0 02/02/2025Sex and Gender InformationValueDate RecordedSex Assigned at BirthNot on fileLegal OpgSnfs0109/05/2022 7:39 PM EDTGender IdentityNot on fileSexual OrientationNot on file Last Filed Vital Signs Vital SignReadingTime TakenCommentsBlood Xpjftsji054/71002/02/2025 10:52 AM EDT Pulse--Temperature--Respiratory Rate--Oxygen Saturation--Inhaled Oxygen Concentration--Lzwsec064 kg (225 lb)02/02/2025 10:52 AM FFYUkvtsz810.3 cm (5' 9 )02/02/2025 10:52 AM EDTBody Mass Index33.23002/02/2025 10:52 AM EDT Plan of Treatment Health MaintenanceDue DateLast DoneCommentsCT Aotvhsdyirxk1961FIT-DNA 1960FIT1961FOBT1961Medicare Annual Wellness (AWV)1960 Srwgozabbhjch1961kin Cancer Mqgqiwxpy18/01/1962Influenza Vaccine (#1) , 03/27/2022, 05/01/2021, Additional history exists Qopbloaoulf30/15/202703/Colorectal Cancer Uoqutiohu38/15/2027 Procedures Procedure NamePriorityDate/TimeAssociated DiagnosisCommentsECG 12-LEADRoutine 04/06/2025 10:16 PM EDT Pre-op exam COMPREHENSIVE METABOLIC CEAMELaawoez01/12/2025 11:37 AM EDT Pre-op exam CBC (INCLUDES DIFF/PLT)Ihmsail7602/02/2025 11:37 AM EDT Pre-op exam from Last 3 Months Results * ECG 12 lead (04/06/2025 10:16 PM EDT) Emilia CHRISTIANSEN - 04/06/2025 10:16 PM EDT Nonspecific changes Authorizing ProviderResult TypeResult StatusPaige Paystrup NPECG ORDERABLESFinal ResultPerforming OrganizationAddressCity/State/ZIP CodePhone Number [facility] [address] [place] [address], * CBC and differential (02/02/2025 11:37 AM EDT)ComponentValueRef RangeTest MethodAnalysis TimePerformed AtPathologist SignatureWHITE BLOOD CELL COUNT7.4 3.8 - 10.8 Thousand/uLQUESTRED BLOOD CELL COUNT4.414.20 - 5.80 Million/uLQUEST HRQXSEOMXB33.313.2 - 17.1 g/rXUQKJNVTCEVUOYNT31.538.5 - 50.0 %GVJFPSII99.680.0 - 100.0 yEBBTKRWZU28.427.0 - 33.0 qbRKZZHSBEJ91.932.0 - 36.0 g/dLQUESTComment: For adults, a slight decrease in the calculated MCHC value (in the range of 30 to 32 g/dL) is most likely not clinically significant; however, it should be interpreted with caution in correlation with other red cell parameters and the patient's clinical condition. RDW13.011.0 - 15.0 %QUESTPLATELET GQSTN112894 - 400 Thousand/uLQUESTMPV9.97.5 - 12.5 fLQUESTABSOLUTE NEUTROPHILS5,7201,500 - 7,800 cells/uLQUESTABSOLUTE LDMVAJZVKMZ393844 - 3,900 cells/uLQUESTABSOLUTE JTWCOAHEN697460 - 950 cells/uL QUESTABSOLUTE QHPDSHJOELN9701 - 500 cells/uLQUESTABSOLUTE JSQKEBXTP638 - 200 cells/rBSWLVCEAVDIVTCPSF67.3%LBRHICRIJAITDZCW33.0%QUESTMONOCYTES8.7%QUEST EOSINOPHILS0.7%QUESTBASOPHILS0.3%QUESTSpecimen (Source)Anatomical Location / LateralityCollection Method / VolumeCollection TimeReceived TimeBloodVenous blood specimen / Pbymgrr9702/02/2025 11:37 AM EDT02/02/2025 11:37 AM EDT Narrative Resulting Agency Comment Performing Organization Information ?Site ID: QPT ?Name: [facility] ?Address: Tameka Ignacio , [address] [place] [phone] ?Director: Kaiden Viera MD Authorizing ProviderResult TypeResult StatusPaige Paystrup NPLAB BLOOD ORDERABLESFinal ResultPerforming OrganizationAddressCity/State/ZIP CodePhone Number [facility] * (ABNORMAL) Comprehensive metabolic panel (02/02/2025 11:37 AM EDT)Component ValueRef RangeTest MethodAnalysis TimePerformed AtPathologist SignatureGlucose 101(H)65 - 99 mg/dLQUESTComment: ? Fasting reference interval For someone without known diabetes, a glucose value between 100 and 125 mg/dL is consistent with prediabetes and should be confirmed with a follow-up test. BNG798 - 25 mg/dLQUESTCreatinine0.910.70 - 1.35 mg/iBFLSPBRVGY12> OR = 60 mL/min/1.15i8EOGTHVCC/CREATININE RATIOSEE NOTE:6 - (calc)QUESTComment: ?? Not Reported: BUN and Creatinine are within ?? reference range. ? Wvcbob177759 - 146 mmol/LQUESTPotassium, Bld4.53.5 - 5.3 mmol/JREYDDRpvnkzcl080 98 - 110 mmol/LQUESTCarbon Khvsupe7358 - 32 mmol/LQUESTCalcium9.18.6 - 10.3 mg/dLQUESTPROTEIN, TOTAL6.76.1 - 8.1 g/dLQUESTALBUMIN4.23.6 - 5.1 g/dLQUEST GLOBULIN2.51.9 - 3.7 g/dL (calc)QUESTALBUMIN/GLOBULIN RATIO1.71.0 - 2.5 (calc) QUESTBILIRUBIN, TOTAL0.60.2 - 1.2 mg/dLQUESTALKALINE DFYHBCPGRCG5924 - 144 U/L MDPGIUXB0549 - 35 U/JAHHZZPBO668 - 46 U/LQUESTSpecimen (Source)Anatomical Location / LateralityCollection Method / VolumeCollection TimeReceived TimeBlood Venous blood specimen / Byfwbpv0102/02/2025 11:37 AM EDT02/02/2025 11:37 AM EDT Narrative Resulting Agency Comment Performing Organization Information ?Site ID: QPT ?Name: [facility] ?Address: [address] [place] [address], [address] [place] [phone] ?Director: Kaiden Viera MD Authorizing ProviderResult TypeResult StatusPaige Paystrup NPLAB BLOOD ORDERABLESFinal ResultPerforming OrganizationAddressCity/State/ZIP CodePhone Number [facility] from Last 3 Months Insurance Care Teams Team MemberRelationshipSpecialtyStart DateEnd Date Unallocated, [place] MD [address] [place] [address] PCP - GeneralFamily Medicine07/08/23
--- OUTSIDE RECORDS SUMMARY | 2025-04-20 08:06 | XMS_ITS | Patient Health Record ---
Author Organization [facility] in [place] Address [address] [place] [address] Care Team Providers Care Veterinarian Poultry Name Role Phone Demetrio Mobley Primary Care Provider Jeni Schaffer Unavailable [phone] Leigha Mejia Unavailable [phone] Allergies Allergen (clinical drug ingredient) Drug/Non Drug Allergy documented on EMR Reaction Allergy Type Onset Date Status PenicillinchildhoodDrug AllergyActive Results Component Value Reference Range Notes XR Foot RT (3 views) * Reviewed date:06/22/2024 01:34:12 PM Interpretation: Performing Lab: Notes/Report: XR foot RT min 3V Reviewed date:12/20/2024 03:15:28 PM Interpretation: Performing Lab: Notes/Report: Source Facility: [place] [address] XRay Report Signed Patient: JAY CARR MR#: [id number] : 1960 Acct:[id number] Age/Sex: 64 / M ADM Date: 12/19/24 Loc: RAD Attending Dr: Jeni Schaffer D.P.M. Ordering Physician: Jeni Schaffer D.P.M. Date of Service: 12/19/24 Procedure(s): XR foot RT min 3V Accession Number(s): [id number] cc: Jeni Schaffer D.P.M.; Yassine Mobley M.D. [place] [address] Patient Name: JAY CARR MRN: [id number] date: 1960 Sex: M Assigned Patient Location: [facility] Current Patient Location: RAD Accession/Order Number: [id number] Exam Date: 12/19/2024 17:23 Report Date: 12/19/2024 17:29 At the request of: JENI SCHAFFER DPKassandra Procedure: XR foot RT min 3V Right FOOT - 3 views CLINICAL HISTORY: RT FOOT PAIN COMPARISON: 08/19/2024 FINDINGS: Stable postsurgical changes involving the first first metatarsal and the hindfoot. There is a subtle lucency involving one of the surgical screws noted of uncertain clinical significance. There is suspicion for minimal lucency involving the first metatarsal surgical hardware. Otherwise no fracture-dislocation. Mild subtalar and degenerative change. Soft tissues unremarkable. XR/XR foot RT min 3V IMPRESSION: EXTENSIVE POSTSURGICAL CHANGES. SUBTLE LUCENCY INVOLVING ONE OF THE OSTEOTOMY SCREWS OF UNCERTAIN CLINICAL SIGNIFICANCE. OTHERWISE MINIMAL DEGENERATIVE change. Impression dictated by: Wallace Brewster M.D. 12/19/2024 5:29 PM Dictation Location: [place] [address] Electronically authenticated by: [id number] Y Date: 12/19/2024 17:29 Dictated By: Wallace Brewster M.D. Signed By: 12/19/24 173 DD/ 1729 TD/TT: Licensed Practical Nurse Instructor: cervical spine wo con Reviewed date:01/05/2025 09:01:45 PM Interpretation: Performing Lab: Notes/Report: Source Facility: [place] [address] Magnetic Resonance Report Signed Patient: JAY CARR MR#: [id number] : 1960 Acct:[id number] Age/Sex: 64 / M ADM Date: 01/04/25 Loc: MRI Attending Dr: Brennen Sam M.D. Ordering Physician: Brennen Sam M.D. Date of Service: 01/04/25 Procedure(s): MR cervical spine wo con Accession Number(s): [id number] cc: Brennen Sam M.D.; Yassine Mobley M.D. [facility] [place] [address] Patient Name: JAY CARR MRN: [id number] date: 1960 Sex: M Assigned Patient Location: MRI Current Patient Location: Accession/Order Number: [id number] Exam Date: 01/05/2025 07:51 Report Date: 01/05/2025 [...] uncal vertebral spurring causing moderate right and mzas-na-jbefypkl left-sided neural foraminal narrowing. Canal patent. C5-6: Prior discectomy. Minimal diffuse ossific bridging noted and uncovertebral spurring, prominent left-sided. This causes minimal right-sided mild left-sided neural foraminal narrowing. Canal is patent. C6-7: Discectomy and fusion. Diffuse ossific bridging and uncovertebral spur formation identified causing mild central canal and mild bilateral neural foramina narrowing. C7-T1: Mild uncovertebral spurring and rsax-jd-tbrhuwcl facet arthropathy. This causes moderate bilateral neural from narrowing. Mild central canal stenosis. . MR/MR cervical spine wo con IMPRESSION: SLYX-ZF-CYEOMODD DEGENERATIVE CHANGES WITH UP TO MILD CENTRAL CANAL NARROWING. JUNCTIONAL DEGENERATIVE CHANGES AND FORAMINAL ENCROACHMENT DUE TO UNCOVERTEBRAL SPURRING GREATEST RIGHT AT C4-C5 Impression dictated by: Wallace Brewster M.D. 01/05/2025 7:58 AM Dictation Location: [place] [address] Electronically authenticated by: [id number] Y Date: 01/05/2025 07:58 Dictated By: Wallace Brewster M.D. Signed By: 01/05/25 0801 DD/ 0758 TD/TT: Licensed Practical Nurse Instructor: CBC AUTO DIFF Reviewed date:04/02/2025 12:03:53 PM Interpretation: Performing Lab: Notes/Report: [facility] , White Blood Count 5.4 4.0-11.0 10 3/uL Red Blood Count4.474.70-6.10 10 6/wFDwldortnvt39.514.0-18.0 g/fCTbgekhkqoj45.7 42.0-54.0 %Mean Corpuscular Msbbze80.580.0-94.0 fLMean Corpuscular Hemoglobin 32.425.9-34.0 pgMean Corpuscular HGB Conc34.029.9-35.2 g/dLRed Cell Distribution Width12.111.0-15.0 %Platelet Vbjta942720-345 10 3/uLMean Platelet Wtxtwo90.29.5- 13.5 fLNeutrophils Percent Auto69.543.0-75.0 %Lymphocytes Percent Auto18.120.5- 60.0 %Monocytes Percent Auto9.81.7-12.0 %Eosinophils Percent Auto1.80.9-7.0 % Basophils Percent Auto0.60.2-2.0 %Immature Granulocytes Pct Auto0.20.0-0.5 % Neutrophils Absolute Auto3.81.4-6.5 10 3/uLLymphocytes Absolute Auto1.01.2-3.8 10 3/uLMonocytes Absolute Auto0.50.3-0.8 10 3/uLEosinophils Absolute Auto0.10.0- 0.7 10 3/uLBasophils Absolute Auto0.00.0-0.1 10 3/uLImmature Granulocytes Abs Auto0.010.00-0.03 10 3/uLPerforming Lab:see noteML - [facility] LB FREE T3 Reviewed date:04/03/2025 01:16:17 PM Interpretation: Performing Lab: Notes/Report: [facility] ,Free T31.852.18-3.98 pg/mLPerforming Lab:see noteML - [facility] LB LIPID PROFILE Reviewed date:04/03/2025 01:16:17 PM Interpretation: Performing Lab: Notes/Report: [facility] ,Vtirjedxkdqqo102<=150 mg/iLTytrvhulhrh265<=200 mg/dLHDL Julqaookryn4636-50 mg/dL <40 mg/dl - HIGH CARDIOVASCULAR RISK > or =60 mg/dl - LOW CARDIOVASCULAR RISK LDL Cholesterol Iewzyuetaa314.6 <100 mg/dl OPTIMAL 160-189 mg/dl HIGH 130-159 mg/dl BORDERLINE HIGH >190 mg/dl VERY HIGH 100-129 mg/dl NEAR OR ABOVE OPTIMAL VLDL RZMKUHKACWE72.4Chol HDL Ratio4.0 7.1 - 11.0 MODERATE RISK 4.4 - 7.1 AVERAGE RISK >11.0 HIGH RISK 3.3 - 4.4 LOW RISK Performing Lab:see noteML - [facility] LBPROF 14(COMP METB) Reviewed date:04/03/2025 01:16:17 PM Interpretation: Performing Lab: Notes/Report: [facility] ,Qixrho478862-901 mmol/LPotassium4.33.5-5.1 mmol/LCbawqkqk90553-907 mmol/LCarbon Duliwdh92.621.0-32.0 mmol/LAnion Gap11.7Ksocebh49654-941 mg/dLBlood Urea Wswwolud49.07.0-18.0 mg/dLCreatinine0.970.70-1.30 mg/dLEstimated GFR ( Jennifer>60>=60 mL/min/1.73m 2Estimated GFR (Non- Eri>60>=60 mL/min/1.73m 2BUN Creatinine Ratio14.9Gzbmtyv7.88.5-10.1 mg/dLBilirubin Total0.50.2-1.0 mg/dL Aspartate Amino Oyshhfqfcyx4926-51 U/LAlanine Kiczoradflfilkdd7868-72 U/L Alkaline Veltcocgify07345-357 U/LTotal Protein7.26.4-8.2 g/dLAlbumin Level3.7 3.4-5.0 g/dLGlobulin3.5Albumin Globulin Ratio1.1Performing Lab:see noteML - [facility] LBPSA SCREENING Reviewed date:04/02/2025 12:03:53 PM Interpretation: Performing Lab: Notes/Report: [facility] ,Prostate Specific Antigen Scrn2.05<=4.00 ng/mLPerforming Lab:see note - [facility] LBT4 Reviewed date:04/03/2025 01:16:17 PM Interpretation: Performing Lab: Notes/Report: [facility] ,T4 Thyroxine8.904.50-12.10 ug/dLPerforming Lab:see note - [facility] LBTSH Reviewed date:04/03/2025 01:16:17 PM Interpretation: Performing Lab: Notes/Report: [facility] ,Thyroid Stimulating Hormone1.5780.358-3.740 uIU/mLPerforming Lab:see note - [facility] LBURIC ACID SERUM Reviewed date:04/03/2025 01:16:17 PM Interpretation: Performing Lab: Notes/Report: [facility] ,Uric Acid4.93.5-7.2 mg/dLPerforming Lab:see note - [facility] LB PSA Reviewed date:04/12/2025 08:06:17 PM Interpretation: Performing Lab: Notes/Report: [facility] ,Prostate Specific Antigen Dx2.03<=4.00 ng/mLPerforming Lab:see note - [facility] LBINSULIN Reviewed date:04/03/2025 01:16:16 PM Interpretation: Performing Lab: Notes/Report: [facility] ,Tdmutmx68.42.6-24.9 uIU/mL Performed at: - [facility] [address] [id number] Collar Band Creaser: Derek Toscano PhD, Phone: [phone] Performing Lab:see jennifer - [facility] LBGLYCOHEMOGLOBIN A1C Reviewed date:04/03/2025 01:16:17 PM Interpretation: Performing Lab: Notes/Report: [facility] ,Glycohemoglobin A1C5.54.5-6.2 % ADA THERAPEUTIC TARGET < 7.0 > 7.0 ACTION SUGGESTED ADA RECOMMENDED LIMIT 4.0 - 6.0 Estimated Average Jeblirj117Fohdvundln Lab:see noteML - [facility] LB XR foot JOMAR min 3V Reviewed date:12/20/2024 03:15:28 PM Interpretation: Performing Lab: Notes/Report: Source Facility: [facility]-[address] [place] [address] [place] [address] XRay Report Signed Patient: JAY CARR MR#: [id number] : 1960 Acct:[id number] Age/Sex: 64 / M ADM Date: 08/19/24 Loc: RAD Attending Dr: Jeni Schaffer D.P.M. Ordering Physician: Jeni Schaffer D.P.M. Date of Service: 08/19/24 Procedure(s): XR foot JOMAR min 3V Accession Number(s): [id number] cc: Jeni Schaffer D.P.M.; Yassine Mobley M.D. [facility] [place] [address] Patient Name: JAY CARR MRN: [id number] date: 1960 Sex: M Assigned Patient Location: [facility] Current Patient Location: [facility] Accession/Order Number: [id number] Exam Date: 08/19/2024 10:48 Report Date: 08/19/2024 11:00 At the request of: JENI SCHAFFER DPKassandra Procedure: XR ankle RT min 3V BILATERAL FEET - 3 views each COMPARISON: Right foot 06/10/2024 and left foot 03/26/2023 CLINICAL DATA: Bilateral foot pain. Follow-up after surgery. Weightbearing AP, lateral and oblique views were obtained. On the right, there is a antonio extending from the proximal first metatarsal through the tarsals to the talus. There are also multiple additional screws in the tarsal region. There is a plate and screws along the dorsum of the talonavicular joint and a orthopedic staple at the first cuneiform. Calcaneal osteotomy is noted. On the left, there is a plate and screws at the first tarsometatarsal joint. There is also an additional screw which does not cross the plate. This hardware was present previously. There is no significant interval change. There is no developing fractures or dislocation. There is flattening of the right plantar arch. Plantar calcaneal spurs are seen. There are minor degenerative changes at the ankles and first toes. No significant soft tissue swelling is seen. XR/XR foot JOMAR min 3V IMPRESSION: BILATERAL POSTOPERATIVE CHANGES, SIMILAR TO PREVIOUS EXAMS. RIGHT ANKLE - 3 views COMPARISON: 01/09/2024 Weightbearing AP, lateral and oblique views were obtained. There is tarsal and first metatarsal fusion hardware which is described in the foot report. The ankle shows no acute fractures or dislocation. On the AP view, there is slight asymmetry at the medial tibiotalar joint which was also seen on the comparison. The talar dome is intact. Minor marginal spurring is seen at the distal tibia no focal soft tissue swelling is noted. IMPRESSION: STABLE APPEARANCE OF THE ANKLE. Impression dictated by: Helen Irizarry M.D.08/19/2024 11:00 AM Dictation Location: [place] [address] Electronically authenticated by: [id number] Y Date: 08/19/2024 11:00 Dictated By: Helen Irizarry M.D. Signed By: 08/19/24 1102 DD/ 1100 TD/TT: Licensed Practical Nurse Instructor:XR ankle RT min 3V Reviewed date:12/20/2024 03:15:28 PM Interpretation: Performing Lab: Notes/Report: Source Facility: [place] [address] [place] [address] XRay Report Signed Patient: JAY CARR MR#: [id number] : 1960 Acct:[id number] Age/Sex: 64 / M ADM Date: 08/19/24 Loc: RAD Attending Dr: Jeni Schaffer D.P.M. Ordering Physician: Jeni Schaffer D.P.M. Date of Service: 08/19/24 Procedure(s): XR ankle RT min 3V Accession Number(s): [id number] cc: Jeni Schaffer D.P.M.; Yassine Mobley M.D. [facility] [place] [address] Patient Name: JAY CARR MRN: [id number] date: 1960 Sex: M Assigned Patient Location: [facility] Current Patient Location: [facility] Accession/Order Number: [id number] Exam Date: 08/19/2024 10:48 Report Date: 08/19/2024 11:00 At the request of: JENI SCHAFFER DPKassandra Procedure: XR ankle RT min 3V BILATERAL FEET - 3 views each COMPARISON: Right foot 06/10/2024 and left foot 03/26/2023 CLINICAL DATA: Bilateral foot pain. Follow-up after surgery. Weightbearing AP, lateral and oblique views were obtained. On the right, there is a antonio extending from the proximal first metatarsal through the tarsals to the talus. There are also multiple additional screws in the tarsal region. There is a plate and screws along the dorsum of the talonavicular joint and a orthopedic staple at the first cuneiform. Calcaneal osteotomy is noted. On the left, there is a plate and screws at the first tarsometatarsal joint. There is also an additional screw which does not cross the plate. This hardware was present previously. There is no significant interval change. There is no developing fractures or dislocation. There is flattening of the right plantar arch. Plantar calcaneal spurs are seen. There are minor degenerative changes at the ankles and first toes. No significant soft tissue swelling is seen. XR/XR ankle RT min 3V IMPRESSION: BILATERAL POSTOPERATIVE CHANGES, SIMILAR TO PREVIOUS EXAMS. RIGHT ANKLE - 3 views COMPARISON: 01/09/2024 Weightbearing AP, lateral and oblique views were obtained. There is tarsal and first metatarsal fusion hardware which is described in the foot report. The ankle shows no acute fractures or dislocation. On the AP view, there is slight asymmetry at the medial tibiotalar joint which was also seen on the comparison. The talar dome is intact. Minor marginal spurring is seen at the distal tibia no focal soft tissue swelling is noted. IMPRESSION: STABLE APPEARANCE OF THE ANKLE. Impression dictated by: Helen Irizarry M.D.08/19/2024 11:00 AM Dictation Location: [employer] Electronically authenticated by: [id number] Y Date: 08/19/2024 11:00 Dictated By: Helen Irizarry M.D. Signed By: 08/19/24 1103 DD/ 1100 TD/TT: Licensed Practical Nurse Instructor: shoulder RT wo con Reviewed date:07/25/2024 04:41:29 PM Interpretation: Performing Lab: Notes/Report: Source Facility: [place] [address] Magnetic Resonance Report Signed Patient: JAY CARR MR#: [id number] : 1960 Acct:[id number] Age/Sex: 64 / M ADM Date: 07/23/24 Loc: MRI Attending Dr: Lyssa SANTIAGO Ordering Physician: Lyssa Meadows Date of Service: 07/23/24 Procedure(s): shoulder RT wo con Accession Number(s): [id number] cc: Yassine Mobley M.D.; Lyssa Meadows [place] [address] Patient Name: JAY CARR MRN: [id number] date: 1960 Sex: M Assigned Patient Location: MRI Current Patient Location: Accession/Order Number: [id number] Exam Date: 07/23/2024 09:54 Report Date: 07/24/2024 06:11 At the request of: LYSSA MEADOWS Procedure: MR shoulder RT wo con EXAMINATION: MR shoulder RT wo con HISTORY: Acute Pain Of right Shoulder COMPARISON: No relevant comparison available. TECHNIQUE: A variety of imaging planes and parameters were utilized for visualization of suspected pathology. Imaging was performed without or with contrast as indicated by examination type. FINDINGS: ROTATOR CUFF REGION CUFF TENDONS: Prominent T2 signal within the supraspinatus tendon without full-thickness tear or disruption. CUFF MUSCLES: Normal appearing muscles. DELTOID: Normal. No significant atrophy or tear. LONG BICEPS TENDON: Normal. No abnormal signal, attrition, or tear. LABRUM/BICEPS ANCHOR SUPERIOR: No visible labral tear or biceps anchor pathology. ANTERIOR/INFERIOR: No visible tear or attrition. POSTERIOR: No posterior labrum abnormality. CAPSULE No visible capsular laxity or thickening. AC JOINT REGION AC JOINT: Moderate-marked osteoarthropathy with moderate narrowing of the underlying coracoacromial arch. AC LIGAMENTS: Normal acromioclavicular ligament. CC LIGAMENTS: Normal coracoclavicular ligaments. ACROMION: Normal horizontal (Type I) configuration. SUBACROMIAL BURSA: Small amount of fluid within bursa. HYALINE CARTILAGE: Joint space narrowing with moderate cartilage thinning. OTHER BONES: Normal proximal humerus, glenoid, and coracoid. OTHER OBSERVATIONS: Negative. No other significant findings or glenohumeral effusion. MR/MR shoulder RT wo con IMPRESSION: 1. Partial tear versus high-grade strain of the supraspinous tendon with small amount of fluid within subacromial-subdeltoid bursa. 2. Moderate to marked degenerative changes of acromioclavicular joint which would predispose to rotator cuff injury. 3. Glenohumeral joint space narrowing secondary to cartilage thinning. Electronically authenticated by: JUAN CARLOS KENNY Date: 07/24/2024 06:11 Dictated By: Juan Carlos Kenny M.D. Signed By: 07/24/24612 DD/ 0 TD/TT: Licensed Practical Nurse Instructor:XR shoulder JOMAR min 2V Reviewed date:07/14/2024 01:15:46 PM Interpretation: Performing Lab: Notes/Report: Source Facility: [place] [address] XRay Report Signed Patient: JAY CARR MR#: [id number] : 1960 Acct:[id number] Age/Sex: 64 / M ADM Date: 07/13/24 Loc: EC Attending Dr: Juan Carlos Russell M.D. Ordering Physician: Juan Carlos Russell M.D. Date of Service: 07/13/24 Procedure(s): XR shoulder JOMAR min 2V Accession Number(s): [id number] cc: Juan Carlos Russell M.D.; Yassine Mobley M.D. [place] [address] Patient Name: JAY CARR MRN: [id number] date: 1960 Sex: M Assigned Patient Location: EC Current Patient Location: EC Accession/Order Number: [id number] Exam Date: 07/13/2024 10:55 Report Date: 07/14/2024 11:16 At the request of: JUAN CARLOS RUSSELL Procedure: XR shoulder JOMAR min 2V EXAM: XR shoulder JOMAR min 2V. HISTORY: BILATERAL SHOULDER PAIN. COMPARISON: None. TECHNIQUE: Routine views of the bilateral shoulders were obtained. FINDINGS/IMPRESSION: 1. There is no evidence of acute fracture or subluxation. 2. There is severe bilateral joint space narrowing with marginal spurring at the glenohumeral and acromioclavicular joints indicating severe osteoarthritis. Electronically authenticated by: YAYO NAVA Date: 07/14/2024 11:16 Dictated By: Yayo Nava M.D. Signed By: 07/14/24 1118 DD/ 1116 TD/TT: Licensed Practical Nurse Instructor:XR foot RT min 3V Reviewed date:12/20/2024 03:15:28 PM Interpretation: Performing Lab: Notes/Report: Source Facility: [place] [address] XRay Report Signed Patient: JAY CARR MR#: [id number] : 1960 Acct:[id number] Age/Sex: 64 / M ADM Date: 06/10/24 Loc: RAD Attending Dr: Jeni Schaffer D.P.M. Ordering Physician: Jeni Schaffer D.P.M. Date of Service: 06/10/24 Procedure(s): XR foot RT min 3V Accession Number(s): [id number] cc: Jeni Schaffer D.P.M.; Yassine Mobley M.D. [facility] [place] [address] Patient Name: JAY CARR MRN: [id number] date: 1960 Sex: M Assigned Patient Location: RAD Current Patient Location: RAD Accession/Order Number: [id number] Exam Date: 06/10/2024 08:35 Report Date: 06/10/2024 14:07 At the request of: JENI SCHAFFER Procedure: XR foot RT min 3V PROCEDURE: XR foot RT min 3V HISTORY: Primary Osteoarthritis Right Ankle Foot COMPARISON: XR foot right 03/25/2024 FINDINGS: BONES:Posterior calcaneal osteotomy and fusion. Mechanical fusion of the medial midfoot via screws, plates, bone staple, and rods. 1 mm backing out of one of the distal screws within the dorsal plate. Prior bone harvesting from distal tibia. SOFT TISSUES:No visible soft tissue swelling. EFFUSION:None visible. OTHER: Negative. XR/XR foot RT min 3V IMPRESSION: 1. Stable surgical changes other than slight backing out of one of the screws within the distal aspect of the dorsal plate. Electronically authenticated by: JUAN CARLOS KENNY Date: 06/10/2024 14:07 Dictated By: Juan Carlos Kenny M.D. Signed By: 06/10/24 1410 DD/ 1407 TD/TT: Licensed Practical Nurse Instructor:XR abdomen 1V Reviewed date:04/12/2025 08:06:17 PM Interpretation: Performing Lab: Notes/Report: Source Facility: [place] [address] XRay Report Signed Patient: JAY CARR MR#: [id number] : 1960 Acct:[id number] Age/Sex: 65 / M ADM Date: 04/12/25 Loc: RAD Attending Dr: Gian Perez M.D. Ordering Physician: Gian Perez M.D. Date of Service: 04/12/25 Procedure(s): XR abdomen 1V Accession Number(s): [id number] cc: Gian Perez M.D.; Yassine Mboley M.D. [facility] [place] [address] Patient Name: JAY CARR MRN: [id number] date: 1960 Sex: M Assigned Patient Location: [facility] Current Patient Location: LAB Accession/Order Number: [id number] Exam Date: 04/12/2025 15:10 Report Date: 04/12/2025 16:23 At the request of: GIAN PEREZ MD Procedure: XR abdomen 1V SINGLE VIEW ABDOMEN COMPARISON: 04/08/2024 CLINICAL DATA: Follow-up kidney stones. Supine view of the abdomen and pelvis was obtained. There is air and stool within the colon. There are no dilated small bowel loops. The kidneys are partially obscured. No obvious radiopaque renal or ureteral stones are identified. No soft tissue masses are seen. There is slight levoscoliotic curvature as well as postoperative and degenerative changes at the spine. XR/XR abdomen 1V IMPRESSION: NO RADIOPAQUE STONES. Impression dictated by: Helen Irizarry M.D. 04/12/2025 4:23 PM Dictation Location: [place] [address] Electronically authenticated by: [id number] Y Date: 04/12/2025 16:23 Dictated By: Helen Irizarry M.D. Signed By: 04/12/251624 DD/ 22 TD/TT: Licensed Practical Nurse Instructor:Testosterone Reviewed date:04/03/2025 01:16:16 PM Interpretation: Performing Lab: Notes/Report: [facility] ,Lngcqcsiscby774685-850 ng/dL [id number]. Adult male reference interval is based on a population of healthy nonobese males (BMI <30) between 19 and 39 years old. Srini et.al. JCEM 2017,102;8686-1307. PMID: [address] [place], [place] [address] Performed at: [facility] Collar Band Creaser: Derek Toscano PhD, Phone: [phone] Performing Lab:see note - [facility] Reason For Referral No Information Medications Medication SIG (Take, Route, Frequency, Duration) Notes Start Date End Date Status NIFEdipine ER 30 MG 1 tablet on an empty stomach Orally Once a day ActivePantoprazole Sodium 40 mgTAKE 1 TABLET BY MOUTH DAILY; Duration: 30Active Vitamin C 250 MG1 tablet Orally bid; Duration: 30 days03/28/2023ctiveVitamin D ActiveZincActiveCranberryActiveDiclofenac Sodium 75 MG1 tablet Orally Twice a day; Duration: 30 daysActiveHydroxychloroquine Sulfate 200 MG1 tablet Orally twice dailyActiveIrbesartan 300 mgTAKE 1 TABLET BY MOUTH DAILY; Duration: 30 Active Immunizations Vaccine Route Administration Date Status Comme nts Flu, Flucelvax (5680-0794) (57800) 6 mos +, single-dose syringe IM Intramuscular 04/12/2023 Administered Social History Tobacco Use: Social History Observation Description Date Details (start date - stop date) Never Smoker NA - NA Tobacco Use/Smoking Question Answer Notes Patient is a nonsmoker Alcohol Screen (Audit-C) Question Answer Notes Did you have a drink containing alcohol in the p ast year? No Fidgtl1EipaqsgmcslcnfHwvrqxfuWptehnv Notes: never smoker never smoker never smoker never smoker never smoker never smoker never smoker never smoker never smoker never smoker never smoker never smoker never smoker never smoker never smoker never smoker never smoker never smoker never smoker never smoker never smoker Problems Problem Type SNOMED Code ICD Code Onset Dates Problem Status W/U Status Risk Notes Problem Onycholysis (64360829) Onycholysis (L60.1 ) ActiveconfirmedProblemOsteoarthritis of knee (196914002)Unilateral primary osteoarthritis, left knee (M17.12)ActiveconfirmedProblemLocalized, primary osteoarthritis of the ankle and/or foot (552374261)Primary osteoarthritis, right ankle and foot (M19.071)ActiveconfirmedProblemArthralgia of the ankle and/or foot (464015578)Pain in right ankle and joints of right foot (M25.571)Active confirmedProblemPain in right foot (101120408717655)Pain in right foot (M79.671) ActiveconfirmedProblemPain in left foot (079456130244024)Pain in left foot (M79.672)ActiveconfirmedProblemPseudarthrosis after fusion or arthrodesis (257324970)Pseudarthrosis after fusion or arthrodesis (M96.0)Activeconfirmed ProblemPresence of functional implant, unspecified (Z96.9)ActiveconfirmedProblem Hypothyroidism (83875989)Hypothyroidism (E03.9)ActiveconfirmedProblemWell adult (963708177)Well adult (Z00.00)ActiveconfirmedProblemLocalized, primary osteoarthritis of the shoulder region (171722457)Osteoarthritis of right shoulder (M19.011)ActiveconfirmedProblemArthritis of right foot (3409714005655270)Arthritis of right foot (M19.071)ActiveconfirmedProblem Pseudarthrosis after fusion or arthrodesis (476942332)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)ActiveconfirmedProblemNodule in muscle (808194474)Nodule in muscle (M62.9)Activeconfirmed Vital Signs Heart Rate 60 /min 08/19/2024 Hnszoflfvqi07.1 degrees Uzwxnuahxg59/18/2024espiratory Rate16 /min08/19/2024 Blood pressure kstcxmozj86 mm Hg11/19/20242421Qcgmjica08 %08/19/20243192Eznnda90 in 11/19/2024lood pressure pwczjzpo212 mm Hg11/19/20241576Ykavzt847.4 lbs11/19/2024MI 33.28 kg/m211/19/2024 Encounters Encounter Location Date Provider Diagnosis [facility] [address] [place] [address] 11/19/2024 Demetrio Mobley Biceps rupture, proximal S46.119A ; Biceps strain, right, initial encounter S46.111A and Well adult Z00.00 [facility] [address] [place] [address] [place] [address] 06/10/2024 Leigha Mejia Primary osteoarthritis, right ankle and foot M19.071 ; 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 and Valgus deformity, not elsewhere classified, right ankle M21.071 [facility] [address] [place] [address] [place] [address] 08/19/2024 Jeni Schaffer Primary osteoarthritis, right ankle and foot M19.071 ; 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 ; Pain in left foot M79.672 ; Pain in right foot M79.671 and Pain in right ankle and joints of right foot M25.571 [facility] [address] [place] [address] 07/25/2024 eDmetrio Mobley [facility] [place] [address] 11/19/2024[facility] [place] [address]/03/2025[facility] [place] [address]/04/2025Do HoyHypothyroidism E03.9 Assessments Encounter Date Diagnosis (ICD Code) Assessment Notes Treatment Notes Treatment Clinical Notes Section Notes 06/10/2024 Primary osteoarthritis, right an kle and foot (ICD-10 - M19.071) The patient is 5 months status post revision medial column fusion of the right foot, DOS: 01/09/2024. He is doing very well. He states his pain and range of motion continue to improve. He is very pleased with his progress thus far. X-rays were reviewed and show stable hardware. He does have more bony consolidation at the NC joint. He has not been using the bone stimulator. He was advised that he may continue to increase activities at his tolerance with avoidance of activities that induce pain. Continue vitamin D supplementation. Continue stiff soled shoe gear. Follow-up in [address] Schaffer, sooner if any issues arise. I would like weightbearing foot and ankle x-rays at follow-up. 06/10/2024Nonunion after arthrodesis (ICD-10 - M96.0)08/19/2024Primary osteoarthritis, right ankle and foot (ICD-10 - M19.071)Patient is very happy with his progress and although he does have some pain and limitation this has even gotten better and is not on a daily basis. I reviewed his x-rays of both of his feet his left foot is unremarkable continues to do well. There is a 1 slightly prominent screw on the right foot which she was educated about. I recommended keeping a close eye on this to ensure no further loosening occurs. I would like to follow-up with him in 3 months with repeat x-rays. He will call in the meantime for any issues.08/19/2024Nonunion after arthrodesis (ICD-10 - M96.0)11/19/2024iceps rupture, proximal (ICD-10 - S46.119A)11/19/2024iceps strain, right, initial encounter (ICD-10 - S46.111A)04/03/2025Hypothyroidism (ICD-10 - E03.9)11/19/2024Well adult (ICD-10 - Z00.00)08/19/2024Pain in left foot (ICD-10 - M79.672)06/10/2024Valgus deformity, not elsewhere classified, right ankle (ICD-10 - M21.071)08/19/2024Pain in right foot (ICD-10 - M79.671) 08/19/2024Pain in right ankle and joints of right foot (ICD-10 - M25.571) Plan Of Treatment Pending Test Test Name Order Date CMP (COMPLETE METABOLIC PANEL) 3 HEMOGLOBIN A1C (GLYCO) 05/22/2023 HEMOGLOBIN A1C (GLYCO) 11/19/2024 INSULIN, TOTAL 11/19/2024 LIPID PANEL (CHOL/TRIG/HDL/LDL) 11/20/19 25 LIPID PANEL (CHOL/TRIG/HDL/LDL) 05/22/20 23 CBC WITH DIFF 05/22/2023 PSA, PROSTATE-SPECIFIC ANTIGEN 3 URIC ACID 11/19/2024 XR Ankle RT (3 views) * (161) 08/19/2024 XR Foot LT (3 views) * 08/19/2024 XR Foot RT (3 views) * 08/19/2024 XR Foot RT (3 views) * 02/04/2024 XR Foot RT (3 views) * 02/25/2024 CT Foot RT w/o contrast * (Optional 3D R endering) 03/25/2024 STOOL OCCULT BLOOD 05/22/2023 TESTOSTERONE, TOTAL 05/22/2023 TESTOSTERONE, TOTAL 11/19/2024 THYROID PANEL (T4/TSH/FREE T3) 5 THYROID PANEL (T4/TSH/FREE T3) 5 THYROID PANEL (T4/TSH/FREE T3) 3 PSA, FREE 06/01/2023 PSA, SCREENING 11/19/2024 CMP (COMP MET AMAYA) w/eGFR CKD-EPI 2024 CBC WITH DIFF 11/19/2024 Insurance Providers Payer Name Payer Address Payer Phone Subscriber Number Group Number Insured Name Patient Relationship to Insured Coverage Start Date Coverage End Date [employer] [address] [phone] [id number], [employer] - patient is the insured Medical (General) History Medical History History ICD Code Arthritis M19.90 Posterior tibial tendon dysfunction (PTT D) of right lower extremity M76.821 Ankle instability, right M25.371 Valgus deformity of foot, right M21.071 Peroneal tendinitis, right M76.71 Retained orthopedic hardware Z96.9 Posterior tibial tendon dysfunction (PTT D) of left lower extremity M76.822 Acquired valgus deformity of left foot M 21.072 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 Schaffer 1. and ..2020 right medial column fusion, subtalar joint fusion, peroneal brevis to longus tendon transfer, HWR1 cervical disc removal back nirmkfz4806/21/2021 right knee rkfxcmirgcj10/1990arthroscopic knee surgery, ozmwe0668Chgbrfkx Calculus02/15/2022ystoscopy w/stent placement- Dr. Perez01/19/2022XLIF L3/4-4 Dr. Moy09/26/2021nterior Cervical Discectomy with decompression and fusion C5-6right foot excision of non union from talonavicular joint with revision of medial column fusion, medial displacement calcaneal osteotomy removal of hardware01/09/24 and Lt shoulder injection- Dr Russell07/27/2024right foot reconstruction Dr. Schaffer09/09/2020Hospitalization History Reason Date(Month/Year) See above
== END 2025-04-20 07:59 | disposition home or self-care (01) ==
LOC: MRI 07:59
PROVIDERS: PCP Family Medicine
DX: M25.512 Pain in left shoulder (principal); M75.52 Bursitis of left shoulder; M19.012 Primary osteoarthritis, left shoulder
CPT/HCPCS: 73221

== ENCOUNTER 2025-05-11 07:49 | Outpatient (OUT) | payer MEDICARE, SELFPAY ==
--- NOTE | 2025-05-11 08:08 | XR_ITS ---
[facility] [place] [id number] Patient Name: RG SIMEON MRN: [id number] date: 1960 Sex: M Assigned Patient Location: LAB Current Patient Location: LAB Accession/Order Number: [id number] Exam Date: 05/11/2025 08:15 Report Date: 05/11/2025 09:05 At the request of: AUDREY MORRIS MD Procedure: XR hip JOMAR BILATERAL HIPS - 2 views each COMPARISON: Left hip 12/30/2020 and KUB 01/29/2022 CLINICAL DATA: Chronic bilateral hip pain, greater on the right. No injury. AP and frog-lateral views were obtained. There is osteopenia. No acute fractures or dislocation are noted. The hip joint spaces are maintained. No significant hypertrophy is seen. The SI joints are intact. Lower lumbar fusion hardware is seen. There are no soft tissue abnormalities. XR/XR hip JOMAR IMPRESSION: NO ACUTE BONY FINDINGS. Impression dictated by: Helen Irizarry M.D. 05/11/2025 9:05 AM Dictation Location: [place] [address] Electronically authenticated by: [id number] Y Date: 05/11/2025 09:05
[2025-05-11 09:01] LABS: Free T3 1.75 pg/mL (2.18-3.98); Thyroid Stimulating Hormone 2.439 uIU/mL (0.358-3.740)
== END 2025-05-11 07:50 | disposition home or self-care (01) ==
LOC: LAB 07:55
PROVIDERS: PCP Family Medicine; Visit Provider Family Medicine
DX: M25.551 Pain in right hip (principal); M25.552 Pain in left hip
CPT/HCPCS: 36415; 73522; 84436; 84443; 84481

== ENCOUNTER 2025-06-01 08:33 | Day surgery (SDC) | payer MEDICARE, SELFPAY ==
--- NOTE | 2025-06-01 | MR_ITS ---
[address] [address] Patient Name: RG SIMEON MRN: [id number] date: 1960 Sex: M Assigned Patient Location: MRI Current Patient Location: Accession/Order Number: [id number] Exam Date: 06/01/2025 10:30 Report Date: 06/01/2025 15:59 At the request of: AUDREY MORRIS MD Procedure: MR hip RT w con MR hip RT w con 06/01/2025 11:37 AM SIGNS AND SYMPTOMS: ^Hip Pain PROTOCOL: Multiplanar multisequence MR images of the right hip were obtained after intra-articular contrast injection during fluoroscopically guided right hip arthrogram. COMPARISON: 05/01/2025 FINDINGS: Alignment: Normal. Femoroacetabular impingement anatomy: There is prominence of the femoral head neck junction anteriorly on the right common and mild subchondral suspicious for cam-type femoral acetabular impingement. There is subtle edema along the anterior and superior rim of the acetabulum. No significant fiber osseous lesion is identified. Dysplasia: None. Fluid: Contrast is noted in the joint space. Labrum: The superior and anterior labrum is truncated and increase signal intensity on fluid sensitive sequences consistent with a remote tear. Contrast extends beyond the labrum superiorly.. Cartilage: Femoral: There is partial thickness chondromalacia.. Acetabular: There is partial thickness chondromalacia. Capsule/ligaments: Normal. Muscles/tendons/entheses: Flexors: Normal. Extensors: Edema is noted at the insertion of the previous medius and gluteus radha suggesting tendinopathy. Abductors: Normal. Adductors: Normal. Rotators: Normal. Hamstrings: Edema is noted in the hamstrings origins suggesting hamstrings tendinopathy. Bones (other than subarticular marrow): Normal. Vessels: Normal. Nerves: Visualized right sciatic and femoral nerves appear normal. Soft tissues: Normal. Viscera: Visualized pelvic structures appear normal. No lymphadenopathy by size criteria. No free fluid in the pelvis. MR/MR hip RT w con IMPRESSION: There is prominence of the femoral head neck junction anteriorly on the right common and mild subchondral suspicious for cam-type femoral acetabular impingement. There is subtle edema along the anterior and superior rim of the acetabulum. No significant fiber osseous lesion is identified. The superior and anterior labrum is truncated and increase signal intensity on fluid sensitive sequences consistent with a remote tear. Contrast extends beyond the labrum superiorly. There is partial thickness chondromalacia on both sides of the right hip joint space. Edema is noted at the insertion of the previous medius and gluteus radha suggesting tendinopathy. Edema is noted in the hamstrings origins suggesting hamstrings tendinopathy. Impression dictated by: Omar Vela M.D. 06/01/2025 3:59 PM Dictation Location: [place] [address] Electronically authenticated by: [id number] Y Date: 06/01/2025 15:59
[2025-06-01 09:00] VITALS: BMI 33.1
[2025-06-01 09:00] LABS: Platelet Count 224 10^3/uL (150-450)
--- NOTE | 2025-06-01 09:05 | FL_ITS ---
[address] [address] Patient Name: RG SIMEON MRN: [id number] date: 1960 Sex: M Assigned Patient Location: MRI Current Patient Location: MRI Accession/Order Number: [id number] Exam Date: 06/01/2025 09:15 Report Date: 06/01/2025 11:38 At the request of: AUDREY MORRIS MD Procedure: FL guided needle placement FL guided needle placement 06/01/2025 10:23 AM SIGNS AND SYMPTOMS: ^Hip Pain CONTRAST: 10 mL of Omnipaque 300 and 0.1 mL of Dotarem INFORMED CONSENT: Reason for procedure was discussed with the patient. The procedure expectations risks benefits options and alternatives were discussed. All the questions were answered. The patient understood the results cannot be guaranteed. The procedure is indicated and risks were acceptable. Consent was obtained. PROCEDURE: The skin over the right femoral head neck junction was visualized fluoroscopically. The skin was marked in this location. The skin was prepped and draped in a sterile manner. 6 mL of lidocaine 1% without epinephrine were used for local anesthesia. A 22-gauge spinal needle was introduced to the level of the femoral head neck junction. 2 mL of Omnipaque 300 were injected to confirm intra-articular location. 15 mL of Omnipaque, normal saline, epinephrine, and Dotarem solution were injected into the right hip joint space. The needle was removed and hemostasis was gained using manual pressure. A bandage was placed at the puncture site. The patient tolerated the procedure well. No immediate complications were detected. FL/FL guided needle placement IMPRESSION: Successful fluoroscopically guided right hip arthrogram with MRI to follow. Please see separately dictated MRI report for further detail. Impression dictated by: Omar Vela M.D. 06/01/2025 11:38 AM Dictation Location: [place] [address] Electronically authenticated by: [id number] Y Date: 06/01/2025 11:38
--- NOTE | 2025-06-01 09:05 | FL_ITS ---
[address] [address] Patient Name: RG SIMEON MRN: [id number] date: 1960 Sex: M Assigned Patient Location: MRI Current Patient Location: MRI Accession/Order Number: [id number] Exam Date: 06/01/2025 09:15 Report Date: 06/01/2025 11:38 At the request of: AUDREY MORRIS MD Procedure: FL arthrogram hip FL arthrogram hip 06/01/2025 10:23 AM SIGNS AND SYMPTOMS: ^Hip Pain CONTRAST: 10 mL of Omnipaque 300 and 0.1 mL of Dotarem INFORMED CONSENT: Reason for procedure was discussed with the patient. The procedure expectations risks benefits options and alternatives were discussed. All the questions were answered. The patient understood the results cannot be guaranteed. The procedure is indicated and risks were acceptable. Consent was obtained. PROCEDURE: The skin over the right femoral head neck junction was visualized fluoroscopically. The skin was marked in this location. The skin was prepped and draped in a sterile manner. 6 mL of lidocaine 1% without epinephrine were used for local anesthesia. A 22-gauge spinal needle was introduced to the level of the femoral head neck junction. 2 mL of Omnipaque 300 were injected to confirm intra-articular location. 15 mL of Omnipaque, normal saline, epinephrine, and Dotarem solution were injected into the right hip joint space. The needle was removed and hemostasis was gained using manual pressure. A bandage was placed at the puncture site. The patient tolerated the procedure well. No immediate complications were detected. FL/FL arthrogram hip IMPRESSION: Successful fluoroscopically guided right hip arthrogram with MRI to follow. Please see separately dictated MRI report for further detail. Impression dictated by: Omar Vela M.D. 06/01/2025 11:38 AM Dictation Location: [place] [address] Electronically authenticated by: [id number] Y Date: 06/01/2025 11:38
[2025-06-01 09:18] LABS: INR 1.03; Prothrombin Time 10.8 sec (9.0-11.6)
--- NOTE | 2025-06-01 13:42 | SUR.PREOP ---
05/18/25 Pt instructed on procedure, date, time, and prep.
== END 2025-06-01 10:20 | disposition home or self-care (01) ==
LOC: MRI 08:35
PROVIDERS: Pathology Anatomic Pathology & Clinical Pathology; Radiology Diagnostic Radiology; PCP Family Medicine; Visit Provider Family Medicine
DX: M25.551 Pain in right hip (principal); Z01.812 Encounter for preprocedural laboratory examination
CPT/HCPCS: 27093; 36415; 73722; 77002; 85049; 85610; A9575; J0169; Q9967